=== PATIENT | male | born 1970 | race Caucasian/White ===

== ENCOUNTER 2021-09-16 14:23 | Emergency (ER) | payer OTHER, SELFPAY ==
--- NOTE | ~2021-09-16 | XR_ITS ---
EXAMINATION: XR ELBOW, LEFT CLINICAL INFORMATION: Pain COMPARISON: None TECHNIQUE: AP, lateral, and oblique views of the left elbow. FINDINGS: There is no fracture, dislocation, or elbow capsular effusion. The articular surfaces appear intact. No joint narrowing or erosive change. There is a tiny spur from the radial head and fine mineralization at the distal triceps just proximal to the olecranon with mild overlying soft tissue swelling. XR/XR elbow LT 2V IMPRESSION: 1. Mild soft tissue swelling overlying olecranon. Fine mineralization distal triceps consistent with calcific tendinosis. 2. No fracture, dislocation, or elbow capsular effusion.
--- NOTE | ~2021-09-16 | CT_ITS ---
EXAMINATION: CT HEAD WITHOUT CONTRAST CT CERVICAL SPINE WITHOUT CONTRAST CLINICAL INFORMATION: Status post fall. Currently intoxicated. COMPARISON: CT cervical spine dated from 05/18/2017. TECHNIQUE: Contiguous axial imaging was performed from the skull base to vertex without intravenous administration of contrast. Contiguous axial imaging was performed from the upper chest through the skull base without intravenous administration of contrast. Coronal and sagittal reformats were obtained at the acquisition workstation. This CT examination was performed using dose optimization techniques as appropriate, variously including the following: *Automated exposure control *Adjustment of mA and/or kV according to patient size (this includes techniques or standardized protocols for targeted exams where dose is matched to indication/reason for exam; i.e. extremities or head) *Use of iterative reconstruction technique DLP: 312 mGy-cm FINDINGS: Head: There is no evidence of acute intracranial hemorrhage or edematous territorial infarction. There is no abnormal attenuation within the brain parenchyma. Weaver-white matter differentiation is preserved. The ventricles are normal in size and configuration. No evidence for obstructive hydrocephalus. No abnormal mass effect or midline shift. No extra-axial fluid collections. Very mild soft tissue thickening in the left frontal scalp, likely the site of injury. No acute osseous abnormalities. The mastoid air cells and paranasal sinuses are clear. Cervical Spine: The atlantooccipital and atlantoaxial articulations remain well aligned. Straightening of the normal cervical lordosis. Otherwise, there is anatomic alignment of the vertebral bodies and posterior elements. No evidence of acute fracture or subluxation. Mild multilevel cervical spondylosis, more prominent in the mid thoracic spine. There is no prevertebral soft tissue swelling. The thyroid gland and remaining cervical soft tissues are normal in appearance. The lung apices demonstrate no abnormalities. There are a few periapical lucencies. Consider dental consultation. CT/CT cervical spine wo con IMPRESSION: No acute intracranial pathology. No acute cervical abnormalities.
[2021-09-16 14:40] VITALS: BP 142/92; PULSE 100; RESP 18; TEMP 36.7; O2SAT 98; BMI 17.7
[2021-09-16] MEDS: Lidocaine HCl 1 % MPF 5 ML VIAL SUBCUT (15:25)
[2021-09-16] MEDS: Diphth,Pertus(ACell),Tet Adult 0.5 ML SYRINGE IM (15:26)
[2021-09-16 16:10] LABS: MANUAL DIFF FLAG NO
--- NOTE | 2021-09-16 16:17 | ED_ITS ---
HPI - Fall General Chief Complaint: Fall <MADISON Hillman - Last Filed: 09/16/21 17:23> Stated Complaint: ETOH W/FALL, NO COMPLAINTS FROM PT PER EMS <MADISON Hillman - Last Filed: 09/16/21 17:23> Time Seen by Provider: 09/16/21 14:54 <MADISON Hillman - Last Filed: 09/16/21 17:23> Source: patient and EMS <MADISON Hillman Last Filed: 09/16/21 17:23> Mode of arrival: EMS <MADISON Hillman Last Filed: 09/16/21 17:23> Limitations: other (Poor historian and intoxicated) <MADISON Hillman Last Filed: 09/16/21 17:23> History of Present Illness HPI Narrative: 51-year-old male with a past medical history of alcohol abuse who reports he drinks approximately four 25 oz of beer daily presenting to the ED via EMS with complaints of a fall and left elbow pain. Patient is a very poor historian is intoxicated he reports that he is unsure when he fell and how he fell although he knows that his left elbow hurts. He denies any head injury or loss of consciousness that he is aware of. He denies being on any blood thinners. He denies any dizziness, headache, change in vision, ear pain, nasal discharge, sore throat, trouble swallowing or breathing, cough, chest pain, shortness of breath, dyspnea exertion, orthopnea, palpitations, nausea/vomiting/diarrhea, a bdominal pain, back pain, any other extremity pain or injuries, recent travel or any other symptoms complaints or concerns at this time. He reports he is currently homeless. He reports that he is not interested in detox. He denies any SI/HI/auditory or visual hallucinations or thoughts of self-injury. <MADISON Hillman Last Filed: 09/16/21 17:23> MD complaint: fall <MADISON Hillman Last Filed: 09/16/21 17:23> Onset (ago): unknown <MADISON Hillman Last Filed: 09/16/21 17:23> Place fall occurred: street <MADISON Hillman Last Filed: 09/16/21 17:23> Loss of consciousness: none <MADISON Hillman - Last Filed: 09/16/21 17:23> Prolonged down time: unclear <MADISON Hillman - Last Filed: 09/16/21 17:23> Symptoms prior to fall: none <MADISON Hillman - Last Filed: 09/16/21 17:23> Context: alcohol use <MADISON Hillman - Last Filed: 09/16/21 17:23> Location of injury - extremities: left: elbow <MADISON Hillman - Last Filed: 09/16/21 17:23> Severity: mild <MADISON Hillman - Last Filed: 09/16/21 17:23> Quality: aching <MADISON Hillman - Last Filed: 09/16/21 17:23> Associated symptoms (after fall): denies <MADISON Hillman - Last Filed: 09/16/21 17:23> Related Data Allergies/Adverse Reactions: Allergies Allergy/AdvReac Type Severity Reaction Status Date / Time No Known Allergies Allergy Unverified 07/30/20 15:15 [No Known Allergies*] <MADISON Hillman - Last Filed: 09/16/21 17:23> Review of Systems Review of Systems: Constitutional : No Fever, No Chills ENT/Mouth : No Ear Pain, No Hoarseness, No sore throat Eyes: No Eye Pain, No Swelling, No Redness, No Foreign Body Cardiovascular : No Chest Pain, No SOB Respiratory : No Cough, No Dyspnea Gastrointestinal : No Nausea, No Vomiting, No Diarrhea, No abdominal Pain Genitourinary : No Dysuria, No Hematuria Musculoskeletal : + joint pain, No Myalgias, No Joint Swelling Skin : + left elbow Skin laceration, No rash Neuro : No Weakness, No Numbness, No Paresthesias, No Loss of Consciousness, No Dizziness, No Headache Psych : No Anxiety/Panic, No Depression Heme/Lymph: no easy bruising, no Lymphadenopathy Endocrine : No Polyuria, No Polydipsia <MADISON Hillman Last Filed: 09/16/21 17:23> Yes all other systems are reviewed and are negative <MADISON Hillman Last Filed: 09/16/21 17:23> [facility] Past Medical History Attestation statement: The following information was validated with the patient. <MADISON Hillman - Last Filed: 09/16/21 17:23> Social History Social History: Social History Alcohol intake: never Smoked in Last 30 Days: No Use of substances other than those prescribed or required for medical reasons: No Advance Directives: No Advance Directives Information Provided: No <MADISON Hillman - Last Filed: 09/16/21 17:23> Physical Exam Vital Signs: Vital Signs: Last Vital Signs Temp 98.0 F 09/16/21 14:40 Pulse 100 09/16/21 14:40 Resp 18 09/16/21 14:40 BP 142/92 H 09/16/21 14:40 Pulse Ox 98 09/16/21 14:40 Body Mass Index 17.7 vital signs have been reviewed as normal and appeared to be correct. Blood pressure normal. Heart rate normal. Respiration rate normal. Temperature normal. Oxygen saturation normal. <MADISON Hillman - Last Filed: 09/16/21 17:23> Vital Signs: Last Vital Signs Temp 98.0 F 09/16/21 14:40 Pulse 100 09/16/21 14:40 Resp 18 09/16/21 14:40 BP 142/92 H 09/16/21 14:40 Pulse Ox 98 09/16/21 14:40 Body Mass Index 17.7 <MADISON Harrell - Last Filed: 09/16/21 21:13> Appearance: Alert although intoxicated with EtOH on breath. Oriented X3. No acute distress. Head: Normal external exam. Normocephalic. Atraumatic. No [place] signs noted. No raccoon eyes noted Eyes: PERRLA. EOMI. Conjunctiva and sclera normal. Eyelids normal. ENT: EAC normal. TM's Normal. Pharynx normal. Uvula midline. Moist mucous membranes. No trismus noted. No drooling noted. No muffled voice noted. Neck: Normal inspection. Neck supple. FROM. No adenopathy. Thyroid Normal. No meningeal signs. No neck mass noted. Nontender. No signs of trauma. CVS: Normal heart rate and rhythm. Heart sound normal. No murmurs noted. Pulses normal throughout. Respiratory: No respiratory distress. Painless inspiration. Breath sounds normal. No wheezes/rales/rhonchi noted. Chest nontender. No accessory muscle usage noted or decreased air movement noted. Abdomen: Soft and nontender. Bowel sounds normal in all 4 quadrants. No distention noted. No organomegaly noted. No visible injury noted. Back: No CVA tenderness. Full range of motion noted. Skin: Skin warm and dry. Normal skin color. Normal skin turgor. No rashes/lesions/lacerations noted. Extremities: Patient with flap 1 cm laceration to left elbow no active bleeding is noted. No foreign bodies are noted. No signs of infection noted. Otherwise all other Extremities exhibit normal range of motion and nontender. No lower extremity edema or calf tenderness is noted. No signs of trauma to other extremities. Patient has full range of motion of lower extremities and hips. No obvious tendon or ligament injury to any joints. Neuro: Oriented X 3. No motor deficit. No sensory deficit. Reflexes normal. Psych: Appearance grossly normal, dishelved, mental status normal, speech and movement normal, speech clear, normal affect. Is cooperative. <MADISON Hillman - Last Filed: 09/16/21 17:23> Course Course Course Narrative: 15pm - 51-year-old male with a past medical history of alcohol abuse who reports he drinks approximately four 25 oz of beer daily presenting to the ED via EMS with complaints of a fall and left elbow pain. Patient is a very poor historian is intoxicated he reports that he is unsure when he fell and how he fell although he knows that his left elbow hurts. He denies any head injury or loss of consciousness that he is aware of. He denies being on any blood thinners. He reports he is currently homeless. He reports that he is not interested in detox. He denies any SI/HI/auditory or visual hallucinations or thoughts of self-injury. Plan: Labs, CT scan of brain/cervical spine without contrast, left elbow x-ray. Update the patient's tetanus and suture the patient's left elbow then re- evaluate. <MADISON Hillman - Last Filed: 09/16/21 17:23> Reevaluation(s) Reevaluation #1: - labs reviewed patient with white blood cell count at 1999. Mild anemia with H&H of 13.9/41.9. Low platelet count of 65. BUN 6. AST/ALT 153/56. Total protein 8.3. Otherwise all other labs are within normal limits. - CT scan of brain/cervical spine within normal limits no acute processes are noted. - left elbow x-ray revealed soft tissue swelling over olecranon process and calcified tendinitis otherwise no other acute processes are noted. - patient now status post laceration repair with [address] Patient tolerated procedure well. No complications. Tetanus was updated at this time. - therefore at this time will obtain blood cultures and lactic acid along with at hepatitis panel such as a/B/C. Patient denies history of HIV. He denies history of IV drug use. - will also give a L of IV fluids and Sign out to VIVI[facility] Hawthorne pending lactic acid and for the patient to be clinically sober. <MADISON Hillman Last Filed: 09/16/21 17:23> Time: 17:19 <MADISON Hillman Last Filed: 09/16/21 17:23> Reevaluation #2: 1900--pancytopenia likely caused from chronic ETOH abuse. Lactic acidosis of 2.4 likely from dehydration/ketoacidosis > will give total of 2L of IVF and repeat. Low concern for severe sepsis -2109--repeat lactic 2.6, still low concern for sepsis, patient is clinically sober at this time requesting to be discharged, ambulating with steady gait, safe for discharge at this time <MADISON Harrell Last Filed: 09/16/21 21:13> Procedures Laceration Laceration 1: Site: upper extremity (Elbow) <MADISON Hillman Last Filed: 09/16/21 17:23> Side (If applicable): left <MADISON Hillman Last Filed: 09/16/21 17:23> Size (cm): 1 <MADISON Hillman Last Filed: 09/16/21 17:23> Description: flap <MADISON Hillman Last Filed: 09/16/21 17:23> Depth: simple, single layer <MADISON Hillman Last Filed: 09/16/21 17:23> Local Anesthetic: lidocaine 1% <MADISON Hillman - Last Filed: 09/16/21 17:23> Amount of anesthesia used (mL): 3 <MADISON Hillman - Last Filed: 09/16/21 17:23> Pre-repair: wound explored, irrigated extensively and deep structures intact <MADISON Hillman - Last Filed: 09/16/21 17:23> Skin layer closed with: nylon <MADISON Hillman - Last Filed: 09/16/21 17:23> Size (cm): 5-0 <MADISON Hillman - Last Filed: 09/16/21 17:23> Number of sutures: 2 <MADISON Hillman - Last Filed: 09/16/21 17:23> Technique: simple, interrupted <MADISON Hillman - Last Filed: 09/16/21 17:23> MDM - Fall Medical Records Attestation: I reviewed the patient's medical records. <MADISON Hillman - Last Filed: 09/16/21 17:23> Lab Data Attestation: I reviewed the patient's lab results. <MADISON Hillman - Last Filed: 09/16/21 17:23> Result diagrams: : 09/16/21 16:07 09/16/21 16:07 <MADISON Hillman - Last Filed: 09/16/21 17:23> Labs: Lab Results 09/16/21 09/16/21 09/16/21 Range/Units 16:07 16:07 18:00 WBC 2.9 L (4.8-10.8) X10*3/uL RBC 4.26 L (4.60-5.80) X10*6/uL Hgb 13.9 L (14.0-18.0) g/dl Hct 41.2 L (42.0-52.0) % MCV 96.7 (80.0-98.0) fL MCH 32.6 (27.0-33.0) pg MCHC 33.7 (31.0-36.0) g/dl RDW 14.6 (11.0-16.0) % Plt Count 65 L (160-400) X10*3/uL MPV 10.7 (9.4-12.4) fL Immature Gran % (Auto) 0.3 (0.0-0.4) % Neut % (Auto) 60.9 (45-73) % Lymph % (Auto) 19.2 L (20-40) % [place] % (Auto) 17.5 H (2-11) % Eos % (Auto) 0.7 (0-4) % Baso % (Auto) 1.4 (0-2) % Lymph # (Auto) 0.6 L (1.2-4.9) X10*3/uL [place] # (Auto) 0.5 (0.1-1.2) X10*3/uL Eos # (Auto) 0.0 (0.0-0.4) X10*3/uL Baso # (Auto) 0.0 (0.0-0.2) X10*3/uL Abs Immat Gran (auto) 0.01 (0.00-0.03) X10*3/uL Absolute Neuts (auto) 1.8 L (2.0-8.3) x10*3/uL Absolute Nucleated RBC 0.000 (0.0-0.012) X10*3/uL Nucleated RBC % (auto) 0.0 (0.0-0.2) /100WBC Sodium 141 (135-145) mmol/L Potassium 4.1 (3.3-5.1) mmol/L Chloride 101 (96-108) mmol/L Carbon Dioxide 28 (22-29) mmol/L Anion Gap 16 (12-20) BUN 6 L (9-16) mg/dL Creatinine 0.76 (0.5-1.4) mg/dL Estim Creat Clear Calc 80.2 Estimated GFR > 60 Random Glucose 88 (60-115) mg/dL Lactic Acid (0.5-2.0) mmol/L Calcium 9.0 (8.4-10.2) mg/dL Magnesium 1.9 (1.6-2.6) mg/dL Total Bilirubin 0.4 (0.0-1.0) mg/dL AST 153 H (5-37) U/L ALT 56 H (0-40) U/L Alkaline Phosphatase 99 (39-117) U/L Total Creatine Kinase 145 (38-174) U/L Total Protein 8.3 H (6.5-8.0) g/dL Albumin 4.5 (3.5-5.0) g/dL Lipase 55 (8-78) U/L COVID-19 (TAI) Negative (Negative) COVID-19 Clin Com See Note 09/16/21 09/16/21 Range/Units 18:27 20:32 WBC (4.8-10.8) X10*3/uL RBC (4.60-5.80) X10*6/uL Hgb (14.0-18.0) g/dl Hct (42.0-52.0) % MCV (80.0-98.0) fL MCH (27.0-33.0) pg MCHC (31.0-36.0) g/dl RDW (11.0-16.0) % Plt Count (160-400) X10*3/uL MPV (9.4-12.4) fL Immature Gran % (Auto) (0.0-0.4) % Neut % (Auto) (45-73) % Lymph % (Auto) (20-40) % [place] % (Auto) (2-11) % Eos % (Auto) (0-4) % Baso % (Auto) (0-2) % Lymph # (Auto) (1.2-4.9) X10*3/uL [place] # (Auto) (0.1-1.2) X10*3/uL Eos # (Auto) (0.0-0.4) X10*3/uL Baso # (Auto) (0.0-0.2) X10*3/uL Abs Immat Gran (auto) (0.00-0.03) X10*3/uL Absolute Neuts (auto) (2.0-8.3) x10*3/uL Absolute Nucleated RBC (0.0-0.012) X10*3/uL Nucleated RBC % (auto) (0.0-0.2) /100WBC Sodium (135-145) mmol/L Potassium (3.3-5.1) mmol/L Chloride (96-108) mmol/L Carbon Dioxide (22-29) mmol/L Anion Gap (12-20) BUN (9-16) mg/dL Creatinine (0.5-1.4) mg/dL Estim Creat Clear Calc Estimated GFR Random Glucose (60-115) mg/dL Lactic Acid 2.4 H* 2.6 H* (0.5-2.0) mmol/L Calcium (8.4-10.2) mg/dL Magnesium (1.6-2.6) mg/dL Total Bilirubin (0.0-1.0) mg/dL AST (5-37) U/L ALT (0-40) U/L Alkaline Phosphatase (39-117) U/L Total Creatine Kinase (38-174) U/L Total Protein (6.5-8.0) g/dL Albumin (3.5-5.0) g/dL Lipase (8-78) U/L COVID-19 (TAI) (Negative) COVID-19 Clin Com <MADISON Hillman - Last Filed: 09/16/21 17:23> Lab Results 09/16/21 09/16/21 09/16/21 Range/Units 16:07 16:07 18:00 WBC 2.9 L (4.8-10.8) X10*3/uL RBC 4.26 L (4.60-5.80) X10*6/uL Hgb 13.9 L (14.0-18.0) g/dl Hct 41.2 L (42.0-52.0) % MCV 96.7 (80.0-98.0) fL MCH 32.6 (27.0-33.0) pg MCHC 33.7 (31.0-36.0) g/dl RDW 14.6 (11.0-16.0) % Plt Count 65 L (160-400) X10*3/uL MPV 10.7 (9.4-12.4) fL Immature Gran % (Auto) 0.3 (0.0-0.4) % Neut % (Auto) 60.9 (45-73) % Lymph % (Auto) 19.2 L (20-40) % [place] % (Auto) 17.5 H (2-11) % Eos % (Auto) 0.7 (0-4) % Baso % (Auto) 1.4 (0-2) % Lymph # (Auto) 0.6 L (1.2-4.9) X10*3/uL [place] # (Auto) 0.5 (0.1-1.2) X10*3/uL Eos # (Auto) 0.0 (0.0-0.4) X10*3/uL Baso # (Auto) 0.0 (0.0-0.2) X10*3/uL Abs Immat Gran (auto) 0.01 (0.00-0.03) X10*3/uL Absolute Neuts (auto) 1.8 L (2.0-8.3) x10*3/uL Absolute Nucleated RBC 0.000 (0.0-0.012) X10*3/uL Nucleated RBC % (auto) 0.0 (0.0-0.2) /100WBC Sodium 141 (135-145) mmol/L Potassium 4.1 (3.3-5.1) mmol/L Chloride 101 (96-108) mmol/L Carbon Dioxide 28 (22-29) mmol/L Anion Gap 16 (12-20) BUN 6 L (9-16) mg/dL Creatinine 0.76 (0.5-1.4) mg/dL Estim Creat Clear Calc 80.2 Estimated GFR > 60 Random Glucose 88 (60-115) mg/dL Lactic Acid (0.5-2.0) mmol/L Calcium 9.0 (8.4-10.2) mg/dL Magnesium 1.9 (1.6-2.6) mg/dL Total Bilirubin 0.4 (0.0-1.0) mg/dL AST 153 H (5-37) U/L ALT 56 H (0-40) U/L Alkaline Phosphatase 99 (39-117) U/L Total Creatine Kinase 145 (38-174) U/L Total Protein 8.3 H (6.5-8.0) g/dL Albumin 4.5 (3.5-5.0) g/dL Lipase 55 (8-78) U/L COVID-19 (TAI) Negative (Negative) COVID-19 Clin Com See Note 09/16/21 09/16/21 Range/Units 18:27 20:32 WBC (4.8-10.8) X10*3/uL RBC (4.60-5.80) X10*6/uL Hgb (14.0-18.0) g/dl Hct (42.0-52.0) % MCV (80.0-98.0) fL MCH (27.0-33.0) pg MCHC (31.0-36.0) g/dl RDW (11.0-16.0) % Plt Count (160-400) X10*3/uL MPV (9.4-12.4) fL Immature Gran % (Auto) (0.0-0.4) % Neut % (Auto) (45-73) % Lymph % (Auto) (20-40) % [place] % (Auto) (2-11) % Eos % (Auto) (0-4) % Baso % (Auto) (0-2) % Lymph # (Auto) (1.2-4.9) X10*3/uL [place] # (Auto) (0.1-1.2) X10*3/uL Eos # (Auto) (0.0-0.4) X10*3/uL Baso # (Auto) (0.0-0.2) X10*3/uL Abs Immat Gran (auto) (0.00-0.03) X10*3/uL Absolute Neuts (auto) (2.0-8.3) x10*3/uL Absolute Nucleated RBC (0.0-0.012) X10*3/uL Nucleated RBC % (auto) (0.0-0.2) /100WBC Sodium (135-145) mmol/L Potassium (3.3-5.1) mmol/L Chloride (96-108) mmol/L Carbon Dioxide (22-29) mmol/L Anion Gap (12-20) BUN (9-16) mg/dL Creatinine (0.5-1.4) mg/dL Estim Creat Clear Calc Estimated GFR Random Glucose (60-115) mg/dL Lactic Acid 2.4 H* 2.6 H* (0.5-2.0) mmol/L Calcium (8.4-10.2) mg/dL Magnesium (1.6-2.6) mg/dL Total Bilirubin (0.0-1.0) mg/dL AST (5-37) U/L ALT (0-40) U/L Alkaline Phosphatase (39-117) U/L Total Creatine Kinase (38-174) U/L Total Protein (6.5-8.0) g/dL Albumin (3.5-5.0) g/dL Lipase (8-78) U/L COVID-19 (TAI) (Negative) COVID-19 Clin Com <MADISON Harrell - Last Filed: 09/16/21 21:13> Imaging Data CT scan of brain/cervical spine without contrast: Attestation: I personally reviewed and interpreted this imaging study as follows: <MADISON Hillman - Last Filed: 09/16/21 17:23> Radiologist's impression: FINDINGS: Head: There is no evidence of acute intracranial hemorrhage or edematous territorial infarction. There is no abnormal attenuation within the brain parenchyma. Weaver-white matter differentiation is preserved. The ventricles are normal in size and configuration. No evidence for obstructive hydrocephalus. No abnormal mass effect or midline shift. No extra-axial fluid collections. Very mild soft tissue thickening in the left frontal scalp, likely the site of injury. No acute osseous abnormalities. The mastoid air cells and paranasal sinuses are clear. Cervical Spine: The atlantooccipital and atlantoaxial articulations remain well aligned. Straightening of the normal cervical lordosis. Otherwise, there is anatomic alignment of the vertebral bodies and posterior elements. No evidence of acute fracture or subluxation. Mild multilevel cervical spondylosis, more prominent in the mid thoracic spine. There is no prevertebral soft tissue swelling. The thyroid gland and remaining cervical soft tissues are normal in appearance. The lung apices demonstrate no abnormalities. There are a few periapical lucencies. Consider dental consultation. CT/CT head/brain wo con IMPRESSION: No acute intracranial pathology. ? No acute cervical abnormalities. <MADISON Hillman - Last Filed: 09/16/21 17:23> Left elbow x-ray: Attestation: I personally reviewed and interpreted this imaging study as follows: <MADISON Hillman - Last Filed: 09/16/21 17:23> Radiologist's impression: FINDINGS: There is no fracture, dislocation, or elbow capsular effusion. The articular surfaces appear intact. No joint narrowing or erosive change. There is a tiny spur from the radial head and fine mineralization at the distal triceps just proximal to the olecranon with mild overlying soft tissue swelling.? XR/XR elbow LT 2V IMPRESSION: ? 1. Mild soft tissue swelling overlying olecranon. Fine mineralization distal triceps consistent with calcific tendinosis. 2. No fracture, dislocation, or elbow capsular effusion. <MADISON Hillman - Last Filed: 09/16/21 17:23> Discharge Plan Discharge Clinical Impression: Sprain of elbow, left, Calcifying tendinitis, Fall, Alcohol intoxication, Laceration of elbow, left <MADISON Hillman - Last Filed: 09/16/21 17:23> Patient Disposition: Home, Self-Care <MADISON Hillman - Last Filed: 09/16/21 17:23> Instructions: Abuse of Alcohol (ED), Fall Prevention (ED) <MADISON Hillman - Last Filed: 09/16/21 17:23> Additional Instructions: Do not drink alcohol or take drugs it can kill you Please follow-up with . Please stay hydrated at home If your symptoms persist or worsen please return to the ED Please return to the ED in 7-10 days to have her stitches taken out <MADISON Hillman - Last Filed: 09/16/21 17:23> Referrals: Alisa Davenport PA [Physician Real Estate Specialist] - 10 days (For suture removal) <MADISON Hillman - Last Filed: 09/16/21 17:23>
[2021-09-16 16:27] LABS: Basophils Percent Auto 1.4 % (0-2); Eosinophils Percent Auto 0.7 % (0-4); Hematocrit 41.2 % (42.0-52.0); Hemoglobin 13.9 g/dl (14.0-18.0); Imm Gran Abs Auto 0.01 X10*3/uL (0.00-0.03); Imm Gran Pct Auto 0.3 % (0.0-0.4); Lymphocytes Absolute Auto 0.6 X10*3/uL (1.2-4.9); Lymphocytes Percent Auto 19.2 % (20-40); Mean Corpuscular HGB Conc 33.7 g/dl (31.0-36.0); Mean Corpuscular Hemoglobin 32.6 pg (27.0-33.0); Mean Corpuscular Volume 96.7 fL (80.0-98.0); Mean Platelet Volume 10.7 fL (9.4-12.4); Monocytes Absolute Auto 0.5 X10*3/uL (0.1-1.2); Monocytes Percent Auto 17.5 % (2-11); Neutrophils Absolute Auto 1.8 x10*3/uL (2.0-8.3); Neutrophils Percent Auto 60.9 % (45-73); Red Blood Count 4.26 X10*6/uL (4.60-5.80); Red Cell Distribution Width 14.6 % (11.0-16.0); White Blood Count 2.9 X10*3/uL (4.8-10.8)
[2021-09-16 16:28] LABS: Platelet Count 65 X10*3/uL (160-400)
[2021-09-16 16:32] LABS: Alanine Aminotransferase 56 U/L (0-40); Albumin Level 4.5 g/dL (3.5-5.0); Alkaline Phosphatase 99 U/L (39-117); Anion Gap 16 (12-20); Aspartate Amino Transferase 153 U/L (5-37); Bilirubin Total 0.4 mg/dL (0.0-1.0); Blood Urea Nitrogen 6 mg/dL (9-16); Carbon Dioxide 28 mmol/L (22-29); Chloride 101 mmol/L (96-108); Creatinine Clr Calc Pharmacy 80.2; Estimated Glomerular Filt Rate > 60; Glucose Random 88 mg/dL (60-115); Lipase 55 U/L (8-78); Magnesium 1.9 mg/dL (1.6-2.6); Potassium 4.1 mmol/L (3.3-5.1); Sodium 141 mmol/L (135-145); Total Protein 8.3 g/dL (6.5-8.0)
[2021-09-16] MEDS: 0.9 % Sodium Chloride 1,000 ML 999 ML IVCONT ×2 (17:32→18:59)
--- NOTE | 2021-09-16 17:45 | MHC.RECOVSUP ---
? Reason for consult Recovery Support o Current location: [facility] o Identified substance use concern: Alcohol - Support ? Intervention: o Community resources provided o Harm reduction discussion ? Plan: o Patient to follow up with H after discharge ? Additional information: Met with patient and we talk about recovery.. Patient did not want any services but did take the resources.
[2021-09-16 18:19] LABS: COVID-19 Test Negative (Negative); IDNOW Serial# 08D9AD1C
[2021-09-16 18:48] LABS: Lactic Acid 2.4 mmol/L (0.5-2.0)
[2021-09-16 20:31] LABS: Reflex Lactate? Lactic Acid Added
[2021-09-16 21:01] LABS: Lactic Acid 2.6 mmol/L (0.5-2.0)
[2021-09-17 04:07] LABS: HBS Num1 0.15 mIU/mL (0-7.99); Hepatitis B Core Antibody Nonreactive (Nonreactive); ~HepC Num1 0.12 S/CO (0.00-0.79); ~Hepatitis B Surface Antibody NONREACTIVE (Nonreactive); ~Hepatitis C Antibody Nonreactive (Nonreactive)
[2021-09-17 04:08] LABS: Hepatitis A Antibody IgM 0.12 Index (0-0.79); Hepatitis B Surface Antigen Negative (Negative); ~Hepatitis A Antibody IgM Nonreactive (Nonreactive)
== END 2021-09-16 21:37 | disposition home or self-care (01) ==
PROVIDERS: Physician Assistant; Physician Assistant Medical; Emergency Provider Emergency Medicine
DX: S53.402A Unspecified sprain of left elbow, initial encounter (principal); S51.012A Laceration without foreign body of left elbow, initial encounter; M65.222 Calcific tendinitis, left upper arm; F10.10 Alcohol abuse, uncomplicated; W19.XXXA Unspecified fall, initial encounter; Y93.9 Activity, unspecified; Y92.9 Unspecified place or not applicable; Y99.9 Unspecified external cause status; Z59.02 Unsheltered homelessness; Z20.822 Contact with and (suspected) exposure to COVID-19
CPT/HCPCS: 12001; 36415; 70450; 72125; 73070; 80053; 82550; 83605; 83690; 83735; 85025; 86704; 86706; 86709; 86803; 87040; 87340; 87635; 90471; 90715; 96360; 96361; 99284

== ENCOUNTER 2021-10-13 15:20 | Emergency (ER) | payer SELFPAY | END 2021-10-13 16:08 | disposition left against medical advice (07) | PROVIDERS: Emergency Provider Emergency Medicine | DX: Z48.02 Encounter for removal of sutures (principal) ==

== ENCOUNTER 2021-10-15 15:20 | Emergency (ER) | payer SELFPAY ==
[2021-10-15 15:27] VITALS: BP 159/87; PULSE 96; RESP 12; TEMP 36.8; O2SAT 92; BMI 17.6
--- NOTE | 2021-10-15 16:06 | ED.ALCOHOL ---
HPI - Alcohol General Chief Complaint: ETOH/Substance Use Stated Complaint: etoh Source: patient and EMS Mode of arrival: EMS Limitations: no limitations History of Present Illness HPI narrative: 51-year-old male presents via EMS for alcohol intoxication. MD complaint: alcohol intoxication Last drink: Just prior to admission Chronic alcohol use: Yes Previous visits for alcohol intoxication: Yes Recent trauma: No Associated symptoms: denies other symptoms Treatments prior to arrival: none Related Data Allergies Allergy/AdvReac Type Severity Reaction Status Date / Time No Known Allergies Allergy Unverified 07/30/20 15:15 [No Known Allergies*] Review of Systems Review of Systems: Constitutional: No Fever, No Chills ENT/Mouth: No sore throat, No Rhinorrhea Eyes: No Eye Pain, No Swelling, No Redness Cardiovascular: No Chest Pain, No SOB Respiratory: No Cough, No Sputum Gastrointestinal: No Nausea, No Vomiting, No Diarrhea, No abdominal Pain Genitourinary: No Dysuria, No Hematuria Musculoskeletal: No joint pain, No Myalgias, No Joint Swelling Skin: No Skin Lesions, No rash Neuro: No Weakness, No Numbness, No Loss of Consciousness, No Dizziness, No Headache Psych: Positive alcohol intoxication, No Anxiety, No Depression, No SI/HI/AH/VH Heme/Lymph: No Bruising, No Bleeding,No Lymphadenopathy Endocrine: No Polyuria, No Polydipsia Yes all other systems are reviewed and are negative [facility] Past Medical History Attestation statement: The following information was validated with the patient. Source: old records reviewed Social History Social History Alcohol intake: current Patient Tobacco Use Status: Tobacco use Unknown Use of substances other than those prescribed or required for medical reasons: Unknown Advance Directives: No Advance Directives Information Provided: Yes Physical Exam Vital Signs: Vital Signs: Last Vital Signs Temp 98.2 F 10/15/21 15:27 Pulse 96 10/15/21 15:27 Resp 12 10/15/21 15:27 BP 159/87 H 10/15/21 15:27 Pulse Ox 92 10/15/21 15:27 BMI result Body Mass Index 17.6 Appearance: Alert. Oriented X3. No acute distress. Eyes: Pupils equal, round and reactive to light. ENT: Pharynx normal. Neck: Normal inspection. Neck supple. CVS: Normal heart rate and rhythm. Pulses normal. Respiratory: No respiratory distress. Breath sounds normal. Abdomen: Soft and nontender. Skin: Skin warm and dry. Normal skin color. Normal skin turgor. Extremities: No lower extremity edema. Moves all extremities against resistance. Neuro: No motor deficit. No sensory deficit. Cranial nerves 2-12 intact. Course Course Course Narrative: 51-year-old male presents with acute alcohol intoxication. Has presented to this facility for ETOH intoxication on a regular basis. Denies suicidal and homicidal ideation. Cranial nerves 2-12 intact. Will discharge home once clinically sober. Patient respectfully declines detox at this time. Patient verbalized understanding of and agrees plan of care discharge home. MDM - Alcohol Differential Diagnosis Differential diagnosis: Likely alcohol dependence and alcohol intoxication Medical Records Attestation: I reviewed the patient's medical records. Lab Data Attestation: I reviewed the patient's lab results. Labs: Lab Results 10/15/21 Range/Units 16:23 COVID-19 (TAI) Negative (Negative) COVID-19 Clin Com See Note Discharge Plan Discharge Clinical Impression: Alcoholic intoxication Patient Disposition: Home, Self-Care Instructions: Alcohol Intoxication (ED), Abuse of Alcohol (ED) Additional Instructions: Please consider detox. Thank you for choosing this emergency department for evaluation. Please follow-up with primary care physician as needed. Return to the emergency department for any new, concerning, or worsening symptoms.
[2021-10-15 17:10] LABS: COVID-19 Test Negative (Negative)
== END 2021-10-15 19:27 | disposition home or self-care (01) ==
PROVIDERS: Nurse Practitioner Family; Emergency Provider Internal Medicine
DX: F10.129 Alcohol abuse with intoxication, unspecified (principal); Y90.9 Presence of alcohol in blood, level not specified; Z20.822 Contact with and (suspected) exposure to COVID-19
CPT/HCPCS: 36415; 87635; 99283; 99284

== ENCOUNTER 2022-02-15 14:33 | Emergency (ER) | payer SELFPAY ==
--- NOTE | ~2022-02-15 | CT_ITS ---
EXAMINATION: CT HEAD WITHOUT CONTRAST CLINICAL INFORMATION: Following the ground. Unsteady gait COMPARISON: None TECHNIQUE: Contiguous axial imaging was performed from the skull base to vertex without intravenous administration of contrast. This CT examination was performed using dose optimization techniques as appropriate, variously including the following: *Automated exposure control *Adjustment of mA and/or kV according to patient size (this includes techniques or standardized protocols for targeted exams where dose is matched to indication/reason for exam; i.e. extremities or head) *Use of iterative reconstruction technique DLP: 708 mGy-cm FINDINGS: There is no evidence of acute intracranial hemorrhage or territorial infarction. No abnormal mass effect or midline shift is seen. Weaver to white matter differentiation is well preserved. No extra-axial fluid collections are identified. The ventricles are normal in size. There is no abnormal attenuation within the brain parenchyma. The osseous structures and soft tissues are normal. The mastoid air cells and visualized portions of the paranasal sinuses are well aerated. CT/CT head/brain wo con IMPRESSION: No acute intracranial process seen.
[2022-02-15 14:42] VITALS: BP 115/89; PULSE 96; RESP 18; TEMP 36.8; O2SAT 92; BMI 22.6
--- NOTE | 2022-02-15 15:11 | ED.GENADULT ---
HPI - General Adult General Chief complaint: General Medical Stated complaint: etoh Time Seen by Provider: 02/15/22 15:11 Source: patient Mode of arrival: EMS Limitations: altered mental status History of Present Illness HPI narrative: 52 y/o male with history longstanding history of alcohol abuse, several ER visits for ETOH intoxication who presents to the ER via EMS after he was found sleeping on ground in front of the firestation. He had an unsteady gait and smelled of alcohol. He was brought to the ER for evaluation. Patient reports drinking at least 6 vodka drinks today. He is unsure how he got to the fire station and unsure why he was sleeping on the floor. He states he has a home and is not homeless. He denies any falls or trauma but is unsure how we got to the ground. He denies any pain or injury. MD complaint: Alcohol intoxication Onset (ago): unknown Relieving factors: none Exacerbating factors: none Associated symptoms: confusion Treatments prior to arrival: none Related Data Allergies Allergy/AdvReac Type Severity Reaction Status Date / Time No Known Allergies Allergy Unverified 07/30/20 15:15 [No Known Allergies*] Review of Systems Review of Systems: Constitutional: No Fever, No Chills ENT/Mouth: No sore throat, No Rhinorrhea, No Swallowing Difficulty Eyes: No Eye Pain, No Swelling, No Redness Cardiovascular: No Chest Pain, No SOB, No Orthopnea, No Edema Respiratory: No Cough, No Sputum, No Wheezing, No dyspnea Gastrointestinal: No Nausea, No Vomiting, No Diarrhea, No abdominal Pain, No Hematochezia, No Melena Genitourinary: No Dysuria, No Urinary Frequency, No Hematuria Musculoskeletal: No joint pain, No Myalgias Skin: No Skin Lesions, No rash Neuro: No Weakness, No Numbness, No Dizziness, No Headache Psych: No Anxiety/Panic, No Depression Heme/Lymph: No Bruising, No Lymphadenopathy Endocrine: No Polyuria, No Polydipsia PMFSH Social History Social History Alcohol intake: current Patient Tobacco Use Status: Tobacco use Unknown Advance Directives: No Advance Directives Information Provided: Yes Physical Exam ED Vital Signs: Vital Signs - 24 hr 02/15/22 14:42 Temperature 98.3 F Pulse Rate 96 Respiratory Rate 18 Blood Pressure 115/89 Pulse Oximetry 92 BMI result Body Mass Index 22.6 Appearance: Alert male sitting in the stretcher, appears intoxicated. Oriented X2. smells of alcohol Head: atraumatic normocephalic. Eyes: Pupils equal, round and reactive to light. ENT: Pharynx normal. Neck: Normal inspection. Neck supple. CVS: Normal heart rate and rhythm. Pulses normal. Respiratory: No respiratory distress. Breath sounds normal. Abdomen: Soft and nontender. +BS x4 Skin: Skin warm and dry. Normal skin color. Normal skin turgor. No rashes. Extremities: Normal inpsection, normal ROM x4. No lower extremity edema. No track stroud. Neuro: Oriented X 2, confused, follows simple commands and answers simple questions, moves all extremities. nonfocal Course Course Course Narrative: 52-year-old male presents to the ER with alcohol intoxication, found on the ground sleeping to the fire station. He appears clinically intoxicated. Been on the ground, no signs of trauma, unclear if he fell or not. Denies any pain. Will get metabolic workup including ETOh level, CT head and monitor closely. Reevaluation(s) Reevaluation #1: ETOH 479. CBC with his baseline pancytopenia. CT head normal. CPK 297, given food and water. Will place in physician observation at this time. Physician observation started at 4:51pm. Patient placed in physician observation because patient is intoxicated and is not safe for discharge unless he has a sober ride.. At the time observation was started patient's vital signs were stable. Patient is alert and orientedx2. Neuro exam is non-focal. CV: RRR and lungs are clear. Will continue to monitor. Medical Decision Making Lab Data Result diagrams: 02/15/22 15:53 02/15/22 15:53 Labs: Lab Results 02/15/22 02/15/22 02/15/22 Range/Units 15:53 15:53 15:53 WBC 3.2 L (4.8-10.8) X10*3/uL RBC 4.35 L (4.60-5.80) X10*6/uL Hgb 13.6 L (14.0-18.0) g/dl Hct 41.1 L (42.0-52.0) % MCV 94.5 (80.0-98.0) fL MCH 31.3 (27.0-33.0) pg MCHC 33.1 (31.0-36.0) g/dl RDW 13.2 (11.0-16.0) % Plt Count 81 L (160-400) X10*3/uL MPV 11.1 (9.4-12.4) fL Immature Gran % (Auto) 0.3 (0.0-0.4) % Neut % (Auto) 50.0 (45-73) % Lymph % (Auto) 32.1 (20-40) % Gallia % (Auto) 14.8 H (2-11) % Eos % (Auto) 0.6 (0-4) % Baso % (Auto) 2.2 H (0-2) % Lymph # (Auto) 1.0 L (1.2-4.9) X10*3/uL Gallia # (Auto) 0.5 (0.1-1.2) X10*3/uL Eos # (Auto) 0.0 (0.0-0.4) X10*3/uL Baso # (Auto) 0.1 (0.0-0.2) X10*3/uL Abs Immat Gran (auto) 0.01 (0.00-0.03) X10*3/uL Absolute Neuts (auto) 1.6 L (2.0-8.3) x10*3/uL Absolute Nucleated RBC 0.000 (0.0-0.012) X10*3/uL Nucleated RBC % (auto) 0.0 (0.0-0.2) /100WBC Sodium 142 (135-145) mmol/L Potassium 4.0 (3.3-5.1) mmol/L Chloride 104 (96-108) mmol/L Carbon Dioxide 26 (22-29) mmol/L Anion Gap 16 (12-20) BUN 6 L (9-16) mg/dL Creatinine 0.75 (0.5-1.4) mg/dL Estim Creat Clear Calc 102.3 Estimated GFR > 60 Random Glucose 97 (60-115) mg/dL Calcium 9.2 (8.4-10.2) mg/dL Magnesium 1.6 (1.6-2.6) mg/dL Total Bilirubin 0.4 (0.0-1.0) mg/dL Direct Bilirubin 0.2 (0.0-0.5) mg/dL AST 110 H (5-37) U/L ALT 37 (0-40) U/L Alkaline Phosphatase 90 (39-117) U/L Total Creatine Kinase 297 H D (38-174) U/L Total Protein 8.5 H (6.5-8.0) g/dL Albumin 4.2 (3.5-5.0) g/dL Ethyl Alcohol mg/dL COVID-19 (TAI) Negative (Negative) COVID-19 Clin Com See Note 02/15/22 Range/Units 15:53 WBC (4.8-10.8) X10*3/uL RBC (4.60-5.80) X10*6/uL Hgb (14.0-18.0) g/dl Hct (42.0-52.0) % MCV (80.0-98.0) fL MCH (27.0-33.0) pg MCHC (31.0-36.0) g/dl RDW (11.0-16.0) % Plt Count (160-400) X10*3/uL MPV (9.4-12.4) fL Immature Gran % (Auto) (0.0-0.4) % Neut % (Auto) (45-73) % Lymph % (Auto) (20-40) % Gallia % (Auto) (2-11) % Eos % (Auto) (0-4) % Baso % (Auto) (0-2) % Lymph # (Auto) (1.2-4.9) X10*3/uL Gallia # (Auto) (0.1-1.2) X10*3/uL Eos # (Auto) (0.0-0.4) X10*3/uL Baso # (Auto) (0.0-0.2) X10*3/uL Abs Immat Gran (auto) (0.00-0.03) X10*3/uL Absolute Neuts (auto) (2.0-8.3) x10*3/uL Absolute Nucleated RBC (0.0-0.012) X10*3/uL Nucleated RBC % (auto) (0.0-0.2) /100WBC Sodium (135-145) mmol/L Potassium (3.3-5.1) mmol/L Chloride (96-108) mmol/L Carbon Dioxide (22-29) mmol/L Anion Gap (12-20) BUN (9-16) mg/dL Creatinine (0.5-1.4) mg/dL Estim Creat Clear Calc Estimated GFR Random Glucose (60-115) mg/dL Calcium (8.4-10.2) mg/dL Magnesium (1.6-2.6) mg/dL Total Bilirubin (0.0-1.0) mg/dL Direct Bilirubin (0.0-0.5) mg/dL AST (5-37) U/L ALT (0-40) U/L Alkaline Phosphatase (39-117) U/L Total Creatine Kinase (38-174) U/L Total Protein (6.5-8.0) g/dL Albumin (3.5-5.0) g/dL Ethyl Alcohol 479 H* mg/dL COVID-19 (TAI) (Negative) COVID-19 Clin Com Discharge Plan Discharge Clinical Impression: Alcoholic intoxication Patient Disposition: Still a Patient Additional Instructions: DO NOT DRINK ALCOHOL, recommend detox Follow up with your doctor If you develop new or worsening symptoms call 911 or come back to the ER for further evaluation.
[2022-02-15 16:02] LABS: MANUAL DIFF FLAG NO
[2022-02-15 16:03] LABS: Basophils Absolute Auto 0.1 X10*3/uL (0.0-0.2); Basophils Percent Auto 2.2 % (0-2); Eosinophils Percent Auto 0.6 % (0-4); Hematocrit 41.1 % (42.0-52.0); Hemoglobin 13.6 g/dl (14.0-18.0); Imm Gran Abs Auto 0.01 X10*3/uL (0.00-0.03); Imm Gran Pct Auto 0.3 % (0.0-0.4); Lymphocytes Percent Auto 32.1 % (20-40); Mean Corpuscular HGB Conc 33.1 g/dl (31.0-36.0); Mean Corpuscular Hemoglobin 31.3 pg (27.0-33.0); Mean Corpuscular Volume 94.5 fL (80.0-98.0); Mean Platelet Volume 11.1 fL (9.4-12.4); Monocytes Absolute Auto 0.5 X10*3/uL (0.1-1.2); Monocytes Percent Auto 14.8 % (2-11); Neutrophils Absolute Auto 1.6 x10*3/uL (2.0-8.3); Red Blood Count 4.35 X10*6/uL (4.60-5.80); Red Cell Distribution Width 13.2 % (11.0-16.0); White Blood Count 3.2 X10*3/uL (4.8-10.8)
[2022-02-15 16:09] LABS: Platelet Count 81 X10*3/uL (160-400)
[2022-02-15 16:16] LABS: Ethanol 479 mg/dL
[2022-02-15 16:20] LABS: Alanine Aminotransferase 37 U/L (0-40); Albumin Level 4.2 g/dL (3.5-5.0); Alkaline Phosphatase 90 U/L (39-117); Anion Gap 16 (12-20); Aspartate Amino Transferase 110 U/L (5-37); Bilirubin Direct 0.2 mg/dL (0.0-0.5); Bilirubin Total 0.4 mg/dL (0.0-1.0); Blood Urea Nitrogen 6 mg/dL (9-16); COVID-19 Test Negative (Negative); Calcium 9.2 mg/dL (8.4-10.2); Carbon Dioxide 26 mmol/L (22-29); Chloride 104 mmol/L (96-108); Creatinine Clr Calc Pharmacy 102.3; Estimated Glomerular Filt Rate > 60; Glucose Random 97 mg/dL (60-115); IDNOW Serial# 55D5AD1C; Magnesium 1.6 mg/dL (1.6-2.6); Sodium 142 mmol/L (135-145); Total Protein 8.5 g/dL (6.5-8.0)
[2022-02-15 17:53] VITALS: BP 115/68; PULSE 84; RESP 14; TEMP 36.4; O2SAT 95
[2022-02-15 22:10] VITALS: BP 117/83; PULSE 98; RESP 16; TEMP 36.8; O2SAT 92
== END 2022-02-16 00:34 | disposition home or self-care (01) ==
PROVIDERS: Physician Assistant; Emergency Provider Emergency Medicine
DX: F10.120 Alcohol abuse with intoxication, uncomplicated (principal); Y90.8 Blood alcohol level of 240 mg/100 ml or more; R41.0 Disorientation, unspecified; Z20.822 Contact with and (suspected) exposure to COVID-19
CPT/HCPCS: 36415; 70450; 80048; 80076; 82077; 82550; 83735; 85025; 87635; 99283; 99284

== ENCOUNTER 2022-09-01 21:26 | Emergency (ER) | payer SELFPAY ==
[2022-09-01 22:27] VITALS: BP 110/65; PULSE 85; RESP 16; TEMP 37; O2SAT 98; BMI 23.4
--- NOTE | 2022-09-02 01:02 | ED.ALCOHOL ---
HPI - Alcohol General Chief Complaint: ETOH/Substance Use Stated Complaint: etoh Time Seen by Provider: 09/02/22 01:01 Source: patient Mode of arrival: EMS Limitations: no limitations History of Present Illness HPI narrative: Patient had a beer was walking lost balance fell on his knees is no loss of consciousness follows witnessed by bystanders no acute complaints at this time Related Data Allergies Allergy/AdvReac Type Severity Reaction Status Date / Time No Known Allergies Allergy Unverified 07/30/20 15:15 [No Known Allergies*] Review of Systems Review of Systems: Yes all other systems are reviewed and are negative [facility] Social History Social History Alcohol intake: current Patient Tobacco Use Status: Tobacco use Unknown Advance Directives: No Advance Directives Information Provided: No Physical Exam ED Vital Signs: Vital Signs - 24 hr 09/01/22 22:27 Temperature 98.6 F Pulse Rate 85 Respiratory Rate 16 Blood Pressure 110/65 Pulse Oximetry 98 Oxygen Delivery Method Room Air BMI result Body Mass Index 23.4 Appearance: Alert. Oriented X3. No acute distress. etoh Eyes: PERRLA, No Nystagmus HEENT: Pharynx normal. Oral Mucosa moist a traumatic Neck: Normal inspection. Neck supple. CVS: Normal heart rate and rhythm. Pulses normal. Respiratory: No respiratory distress. Equal air entry bilateral, no wheezing/rales/rhonchi Abdomen: Soft and nontender. Bowel sounds are present, no mass palpable, no CVA tenderness Skin: Skin warm and dry. Normal skin color. Normal skin turgor. Extremities: No lower extremity edema. No calf tenderness Neuro: Oriented X 3. No motor deficit. No sensory deficit.No cerebellar signs , cranial nerves II-XII intact MDM - Alcohol MDM Narrative Medical decision making narrative: Patient intoxicated with mechanical fall wearing his pants very low likely the cause for the fall , no signs of injury patient ambulatory and steady gait to discharge patient home Discharge Plan Discharge Clinical Impression: Alcoholic intoxication, Fall Patient Disposition: Home, Self-Care Instructions: Alcohol Intoxication (ED), Fall Prevention (ED) Additional Instructions: Care and cautions as advised
--- NOTE | 2022-09-02 01:22 | PC.NURSE ---
pt ambulatory to and from bathroom with steady gait
== END 2022-09-02 01:22 | disposition home or self-care (01) ==
PROVIDERS: Emergency Provider Internal Medicine
DX: F10.220 Alcohol dependence with intoxication, uncomplicated (principal); Y90.9 Presence of alcohol in blood, level not specified; Z91.81 History of falling
CPT/HCPCS: 99282

== ENCOUNTER 2022-10-04 09:17 | Inpatient (IN) | payer MEDICAID, SELFPAY ==
[2022-10-04] VITALS (8 sets, daily range): BP systolic 104–151; BP diastolic 56–101; PULSE 78–109; RESP 16–18; TEMP 35.8–37.2; O2SAT 96–100; BMI 19.3
--- NOTE | ~2022-10-04 | CT_ITS ---
EXAMINATION: EXAMINATION: HEAD CT WITHOUT CONTRAST CERVICAL SPINE CT WITHOUT CONTRAST CLINICAL INFORMATION: Alcohol question fall COMPARISON: CT head 02/15/2022 TECHNIQUE: Contiguous axial imaging of the head was performed without the administration of IV contrast. Axial multidetector volumetric images were also performed through the cervical spine without contrast. Multiplanar reconstructed images in coronal and sagittal orientations were submitted. DOSE: 970 mGy-cm FINDINGS: HEAD: There is no evidence of acute intracranial hemorrhage or territorial infarction. No abnormal mass-effect or midline shift. No extra-axial fluid collections. Weaver to white matter differentiation is well preserved. Commensurate prominence of the ventricles and sulci is compatible with generalized parenchymal volume loss. There is periventricular and subcortical white matter hypoattenuation, most likely representing microangiopathic disease No acute calvarial fracture. The sinuses and mastoid air cells are clear. CERVICAL SPINE: There is increased lordotic curvature of the spine. There is anatomic alignment of the vertebral bodies and posterior elements. The atlantoaxial and atlantooccipital articulations are maintained. Vertebral body heights are maintained. No visible acute fracture.. Multilevel mild disc degenerative changes. No prevertebral soft tissue swelling. No suspicious thyroid findings. No suspicious findings in the lung apices. CT/CT head/brain wo IV con IMPRESSION: 1. No CT evidence of acute intracranial hemorrhage or edematous territorial infarction.. 2. No CT evidence of acute fracture or malalignment in the cervical spine.
--- NOTE | ~2022-10-04 | CT_ITS ---
EXAMINATION: EXAMINATION: HEAD CT WITHOUT CONTRAST CERVICAL SPINE CT WITHOUT CONTRAST CLINICAL INFORMATION: Alcohol question fall COMPARISON: CT head 02/15/2022 TECHNIQUE: Contiguous axial imaging of the head was performed without the administration of IV contrast. Axial multidetector volumetric images were also performed through the cervical spine without contrast. Multiplanar reconstructed images in coronal and sagittal orientations were submitted. DOSE: 970 mGy-cm FINDINGS: HEAD: There is no evidence of acute intracranial hemorrhage or territorial infarction. No abnormal mass-effect or midline shift. No extra-axial fluid collections. Weaver to white matter differentiation is well preserved. Commensurate prominence of the ventricles and sulci is compatible with generalized parenchymal volume loss. There is periventricular and subcortical white matter hypoattenuation, most likely representing microangiopathic disease No acute calvarial fracture. The sinuses and mastoid air cells are clear. CERVICAL SPINE: There is increased lordotic curvature of the spine. There is anatomic alignment of the vertebral bodies and posterior elements. The atlantoaxial and atlantooccipital articulations are maintained. Vertebral body heights are maintained. No visible acute fracture.. Multilevel mild disc degenerative changes. No prevertebral soft tissue swelling. No suspicious thyroid findings. No suspicious findings in the lung apices. CT/CT cervical spine wo IV con IMPRESSION: 1. No CT evidence of acute intracranial hemorrhage or edematous territorial infarction.. 2. No CT evidence of acute fracture or malalignment in the cervical spine.
--- NOTE | 2022-10-04 09:40 | ED.GENADULT ---
HPI - General Adult General Chief complaint: ETOH/Substance Use <Vanessa Lopez CNP - Last Filed: 10/04/22 17:48> Stated complaint: ETOH INTOX PER EMS <Vanessa Lopez CNP - Last Filed: 10/04/22 17:48> Time Seen by Provider: 10/04/22 09:26 <Vanessa Lopez CNP - Last Filed: 10/04/22 17:48> Source: patient and EMS <Vanessa Lopez CNP - Last Filed: 10/04/22 17:48> Mode of arrival: EMS <Vanessa Lopez CNP - Last Filed: 10/04/22 17:48> Limitations: altered mental status ( intoxicated) <Vanessa Lopez CNP - Last Filed: 10/04/22 17:48> History of Present Illness HPI narrative: patient is a 52-year-old male who presents to the emergency department via EMS. Bystanders contacted because they found him sleeping outdoors. Patient endorsing EtOH, unknown amount. He does endorse drinking vodka. he states I just fell asleep nothing is wrong with that . He is calm and cooperative. Reporting no physical complaints. <Vanessa Lopez CNP - Last Filed: 10/04/22 17:48> Related Data Allergies/adverse reactions: Allergies Allergy/AdvReac Type Severity Reaction Status Date / Time No Known Allergies Allergy Unverified 07/30/20 15:15 [No Known Allergies*] <Vanessa Lopez CNP - Last Filed: 10/04/22 17:48> Review of Systems Review of Systems: Yes Unobtainable due to mental status ( Intoxication) <Vanessa Lopez CNP - Last Filed: 10/04/22 17:48> PMF Past Medical History Attestation statement: The following information was validated with the patient. <Vanessa Lopez CNP - Last Filed: 10/04/22 17:48> Source: old records reviewed <Vanessa Lopez CNP - Last Filed: 10/04/22 17:48> Social History Social History: Social History Alcohol intake: current Patient Tobacco Use Status: Tobacco use Unknown Advance Directives: No Advance Directives Information Provided: No <Vanessa Lopez CNP - Last Filed: 10/04/22 17:48> Physical Exam ED Vital Signs: Vital Signs - 24 hr 10/04/22 09:24 10/04/22 10:20 10/04/22 11:47 Temperature 96.6 F L 97.0 F 96.5 F L Pulse Rate 92 78 80 Respiratory Rate 18 16 16 Blood Pressure 144/101 H 124/71 119/76 Pulse Oximetry 97 97 98 Oxygen Delivery Method Room Air Room Air Room Air 10/04/22 13:51 10/04/22 15:51 10/04/22 17:55 Temperature 97.3 F 98.0 F 97.6 F Pulse Rate 86 98 105 H Respiratory Rate 16 16 16 Blood Pressure 104/56 L 109/73 110/61 Pulse Oximetry 96 98 Oxygen Delivery Method Room Air Room Air 10/04/22 20:00 10/04/22 22:00 Temperature 99.0 F 98.1 F Pulse Rate 109 H 109 H Respiratory Rate 16 16 Blood Pressure 124/83 151/80 H Pulse Oximetry 96 97 Oxygen Delivery Method Room Air Room Air BMI result Body Mass Index 19.3 <Vanessa Lopez CNP - Last Filed: 10/04/22 17:48> Vital Signs - 24 hr 10/04/22 09:24 10/04/22 10:20 10/04/22 11:47 Temperature 96.6 F L 97.0 F 96.5 F L Pulse Rate 92 78 80 Respiratory Rate 18 16 16 Blood Pressure 144/101 H 124/71 119/76 Pulse Oximetry 97 97 98 Oxygen Delivery Method Room Air Room Air Room Air 10/04/22 13:51 10/04/22 15:51 10/04/22 17:55 Temperature 97.3 F 98.0 F 97.6 F Pulse Rate 86 98 105 H Respiratory Rate 16 16 16 Blood Pressure 104/56 L 109/73 110/61 Pulse Oximetry 96 98 Oxygen Delivery Method Room Air Room Air 10/04/22 20:00 10/04/22 22:00 Temperature 99.0 F 98.1 F Pulse Rate 109 H 109 H Respiratory Rate 16 16 Blood Pressure 124/83 151/80 H Pulse Oximetry 96 97 Oxygen Delivery Method Room Air Room Air BMI result Body Mass Index 19.3 <MADISON Holguin - Last Filed: 10/05/22 02:32> Appearance: Alert. No acute distress.? appears intoxicated Head: normocephalic atraumatic Eyes: Pupils equal, round and reactive to light.? EOMI. No nystagmus. ENT: Pharynx normal.?? Neck: Normal inspection.? Neck supple.?? No midline cervical spine tenderness, step-offs, deformities. CVS: Heart sounds normal. Normal heart rate and rhythm.? Pulses normal.?? Respiratory: No respiratory distress.? Lung sounds clear to auscultation bilaterally?? Abdomen: Soft and non-tender. Normoactive bowel sounds. Skin: Skin warm and dry.? Normal skin color.? Extremities: No lower extremity edema.? No calf ttp? Neuro: Moves all extremities spontaneously. Sensation intact bilaterally. No focal neuro deficits. <Vanessa Lopez CNP - Last Filed: 10/04/22 17:48> Course Course Course Narrative: Patient is a 52-year-old male presenting to emergency department intoxicated from alcohol consumption. Presented by EMS after bystanders called, he was sleeping outdoors in the cold. Patient states he fell asleep. denies any fall. Denying headache or neck pain. Full range of motion present to the neck. No focal neurological deficits. No visible injuries. No physical complaints at the time of examination. Will obtain basic labs, RUSSO, and ethanol level. At the time of initial examination 09:40 hypothermic 96.6 with mild tachycardia pulse 92, likely secondary to patient having been sleeping outside in cold weather. At this time no infection is suspected. Will monitor. <Vanessa Lopez CNP - Last Filed: 10/04/22 17:48> Reevaluation(s) Reevaluation #1: CBC reveals macrocytic anemia, does not meet transfusion criteria, thrombocytopenia consistent with baseline. CMP overall unremarkable, AST elevated consistent with baseline. Urinalysis without evidence of infection. Drug of abuse screen negative. Ethanol level 465. No apparent distress at this time. <Vanessa Lopez CNP - Last Filed: 10/04/22 17:48> Time: 12:00 <Vanessa Lopez CNP - Last Filed: 10/04/22 17:48> Reevaluation #2: Patient has been eating and drinking, mostly sleeping. Nursing staff attempted to ambulate patient, very unsteady on feet. Almost falling backwards on stretcher. Not appearing clinically sober at this time. When asked whether patient is interested in any detox services, he rolls his eyes and does not answer questioning. <Vanessa Lopez CNP - Last Filed: 10/04/22 17:48> Time: 17:00 <Vanessa Lopez CNP - Last Filed: 10/04/22 17:48> Reevaluation #3: patient signed out to [facility] pending clinical sobriety. Patient to be offered detox if he is if interested. Otherwise if he declines, patient could be cleared for discharge home. <Vanessa Lopez CNP - Last Filed: 10/04/22 17:48> Time: 17:47 <Vanessa Lopez CNP - Last Filed: 10/04/22 17:48> Additional Reevaluation(s): CT of head and neck with no acute findings. No signs of intracranial hemorrhage, traumatic subluxations or dislocations. Plan at this time is for clinical sobriety, and offering him detox. 0021 Patient has been ambulatory around the department alert and oriented x4. At this time patient clinically sober will discharge home. 0050 This PA noted that when patient was walking out he appeared extremely shaky, reports he is feeling tremulous, anxious like times when he is withdrawn from alcohol CIWA score of 14. At this time patient will be given Ativan 2mg po . 0230 Upon re-evaluation of patient patient is noted to have a CIWA 8- phenobarb will be ordered per protocol. Will admit patient to hospitalist for acute alcohol withdrawal. To note upon re-evaluation patient was noted to have upper extremity resting tremors, tongue fasciculations, anxiety, slight headache. <MADISON Holguin - Last Filed: 10/05/22 02:32> Medications Administered Discontinued Medications Generic Name Dose Route Start Last Admin Trade Name Freq PRN Reason Stop Dose Admin Lorazepam 2 mg 10/05/22 00:49 10/05/22 00:58 Lorazepam 1 Mg Tablet PO 10/05/22 00:50 2 mg ONCE ONE Administration <Vanessa Lopez CNP - Last Filed: 10/04/22 17:48> Medications Administered Discontinued Medications Generic Name Dose Route Start Last Admin Trade Name David PRN Reason Stop Dose Admin Lorazepam 2 mg 10/05/22 00:49 10/05/22 00:58 Lorazepam 1 Mg Tablet PO 10/05/22 00:50 2 mg ONCE ONE Administration <MADISON Holguin - Last Filed: 10/05/22 02:32> Medical Decision Making Medical Records Medical records reviewed: Yes I reviewed the patient's medical records. <Vanessa Lopez CNP - Last Filed: 10/04/22 17:48> Lab Data Lab results reviewed: Yes I reviewed the patient's lab results. <Vanessa Lopez CNP - Last Filed: 10/04/22 17:48> Result diagrams: : 10/04/22 10:16 10/04/22 10:16 <Vanessa Lopez CNP - Last Filed: 10/04/22 17:48> Labs: Lab Results 10/04/22 10/04/22 10/04/22 Range/Units 10:16 10:16 10:16 WBC 6.3 (4.8-10.8) X10*3/uL RBC 3.38 L D (4.60-5.80) X10*6/uL Hgb 11.6 L (14.0-18.0) g/dl Hct 35.9 L (42.0-52.0) % MCV 106.2 H (80.0-98.0) fL MCH 34.3 H (27.0-33.0) pg MCHC 32.3 (31.0-36.0) g/dl RDW 13.4 (11.0-16.0) % Plt Count 126 L D (160-400) X10*3/uL MPV 12.2 (9.4-12.4) fL Immature Gran % (Auto) 0.3 (0.0-0.4) % Neut % (Auto) 65.1 (45-73) % Lymph % (Auto) 24.3 (20-40) % [place] % (Auto) 8.3 (2-11) % Eos % (Auto) 1.0 (0-4) % Baso % (Auto) 1.0 (0-2) % Lymph # (Auto) 1.5 (1.2-4.9) X10*3/uL [place] # (Auto) 0.5 (0.1-1.2) X10*3/uL Eos # (Auto) 0.1 (0.0-0.4) X10*3/uL Baso # (Auto) 0.1 (0.0-0.2) X10*3/uL Abs Immat Gran (auto) 0.02 (0.00-0.03) X10*3/uL Absolute Neuts (auto) 4.1 (2.0-8.3) x10*3/uL Absolute Nucleated RBC 0.000 (0.0-0.012) X10*3/uL Nucleated RBC % (auto) 0.0 (0.0-0.2) /100WBC Sodium 144 (135-145) mmol/L Potassium 4.3 (3.3-5.1) mmol/L Chloride 106 (96-108) mmol/L Carbon Dioxide 28 (22-29) mmol/L Anion Gap 14 (12-20) BUN 10 D (9-16) mg/dL Creatinine 0.60 (0.5-1.4) mg/dL Estim Creat Clear Calc 109.5 Estimated GFR > 60 Random Glucose 109 (60-115) mg/dL Calcium 8.4 D (8.4-10.2) mg/dL Magnesium 1.6 (1.6-2.6) mg/dL Total Bilirubin 0.4 (0.0-1.0) mg/dL AST 94 H (5-37) U/L ALT 23 (0-40) U/L Alkaline Phosphatase 189 H D (39-117) U/L Total Protein 8.1 H (6.5-8.0) g/dL Albumin 3.5 (3.5-5.0) g/dL Urine Color Urine Appearance Urine pH (5.0-9.0) Ur Specific [place] (1.005-1.025) Urine Protein (Neg-Trace) mg/dL Urine Glucose (UA) (Negative) mg/dL Urine Ketones (Negative) mg/dL Urine Blood (Negative) Urine Nitrite (Negative) Ur Leukocyte Esterase (Negative) Urine Opiates Screen (Not Detect) Urine Fentanyl Screen (Not Detect) Ur Barbiturates Screen (Not Detect) Ur Phencyclidine Scrn (Not Detect) Ur Amphetamines Screen (Not Detect) U Benzodiazepines Scrn (Not Detect) Urine Cocaine Screen (Not Detect) U Marijuana (THC) Screen (Not Detect) Ethyl Alcohol 465 H* mg/dL COVID-19 (TAI) Negative (Negative) COVID-19 Clin Com See Note 10/04/22 10/04/22 Range/Units 10:18 10:18 WBC (4.8-10.8) X10*3/uL RBC (4.60-5.80) X10*6/uL Hgb (14.0-18.0) g/dl Hct (42.0-52.0) % MCV (80.0-98.0) fL MCH (27.0-33.0) pg MCHC (31.0-36.0) g/dl RDW (11.0-16.0) % Plt Count (160-400) X10*3/uL MPV (9.4-12.4) fL Immature Gran % (Auto) (0.0-0.4) % Neut % (Auto) (45-73) % Lymph % (Auto) (20-40) % [place] % (Auto) (2-11) % Eos % (Auto) (0-4) % Baso % (Auto) (0-2) % Lymph # (Auto) (1.2-4.9) X10*3/uL [place] # (Auto) (0.1-1.2) X10*3/uL Eos # (Auto) (0.0-0.4) X10*3/uL Baso # (Auto) (0.0-0.2) X10*3/uL Abs Immat Gran (auto) (0.00-0.03) X10*3/uL Absolute Neuts (auto) (2.0-8.3) x10*3/uL Absolute Nucleated RBC (0.0-0.012) X10*3/uL Nucleated RBC % (auto) (0.0-0.2) /100WBC Sodium (135-145) mmol/L Potassium (3.3-5.1) mmol/L Chloride (96-108) mmol/L Carbon Dioxide (22-29) mmol/L Anion Gap (12-20) BUN (9-16) mg/dL Creatinine (0.5-1.4) mg/dL Estim Creat Clear Calc Estimated GFR Random Glucose (60-115) mg/dL Calcium (8.4-10.2) mg/dL Magnesium (1.6-2.6) mg/dL Total Bilirubin (0.0-1.0) mg/dL AST (5-37) U/L ALT (0-40) U/L Alkaline Phosphatase (39-117) U/L Total Protein (6.5-8.0) g/dL Albumin (3.5-5.0) g/dL Urine Color Yellow Urine Appearance Clear Urine pH 5.5 (5.0-9.0) Ur Specific [place] 1.010 (1.005-1.025) Urine Protein Negative (Neg-Trace) mg/dL Urine Glucose (UA) Negative (Negative) mg/dL Urine Ketones Negative (Negative) mg/dL Urine Blood Negative (Negative) Urine Nitrite Negative (Negative) Ur Leukocyte Esterase Negative (Negative) Urine Opiates Screen Not Detected (Not Detect) Urine Fentanyl Screen Not Detected (Not Detect) Ur Barbiturates Screen Not Detected (Not Detect) Ur Phencyclidine Scrn Not Detected (Not Detect) Ur Amphetamines Screen Not Detected (Not Detect) U Benzodiazepines Scrn Not Detected (Not Detect) Urine Cocaine Screen Not Detected (Not Detect) U Marijuana (THC) Screen Not Detected (Not Detect) Ethyl Alcohol mg/dL COVID-19 (TAI) (Negative) COVID-19 Clin Com <Vanessa Lopez, [employer] EXCHANGE TRADER - Last Filed: 10/04/22 17:48> Lab Results 10/04/22 10/04/22 10/04/22 Range/Units 10:16 10:16 10:16 WBC 6.3 (4.8-10.8) X10*3/uL RBC 3.38 L D (4.60-5.80) X10*6/uL Hgb 11.6 L (14.0-18.0) g/dl Hct 35.9 L (42.0-52.0) % MCV 106.2 H (80.0-98.0) fL MCH 34.3 H (27.0-33.0) pg MCHC 32.3 (31.0-36.0) g/dl RDW 13.4 (11.0-16.0) % Plt Count 126 L D (160-400) X10*3/uL MPV 12.2 (9.4-12.4) fL Immature Gran % (Auto) 0.3 (0.0-0.4) % Neut % (Auto) 65.1 (45-73) % Lymph % (Auto) 24.3 (20-40) % [place] % (Auto) 8.3 (2-11) % Eos % (Auto) 1.0 (0-4) % Baso % (Auto) 1.0 (0-2) % Lymph # (Auto) 1.5 (1.2-4.9) X10*3/uL [place] # (Auto) 0.5 (0.1-1.2) X10*3/uL Eos # (Auto) 0.1 (0.0-0.4) X10*3/uL Baso # (Auto) 0.1 (0.0-0.2) X10*3/uL Abs Immat Gran (auto) 0.02 (0.00-0.03) X10*3/uL Absolute Neuts (auto) 4.1 (2.0-8.3) x10*3/uL Absolute Nucleated RBC 0.000 (0.0-0.012) X10*3/uL Nucleated RBC % (auto) 0.0 (0.0-0.2) /100WBC Sodium 144 (135-145) mmol/L Potassium 4.3 (3.3-5.1) mmol/L Chloride 106 (96-108) mmol/L Carbon Dioxide 28 (22-29) mmol/L Anion Gap 14 (12-20) BUN 10 D (9-16) mg/dL Creatinine 0.60 (0.5-1.4) mg/dL Estim Creat Clear Calc 109.5 Estimated GFR > 60 Random Glucose 109 (60-115) mg/dL Calcium 8.4 D (8.4-10.2) mg/dL Magnesium 1.6 (1.6-2.6) mg/dL Total Bilirubin 0.4 (0.0-1.0) mg/dL AST 94 H (5-37) U/L ALT 23 (0-40) U/L Alkaline Phosphatase 189 H D (39-117) U/L Total Protein 8.1 H (6.5-8.0) g/dL Albumin 3.5 (3.5-5.0) g/dL Urine Color Urine Appearance Urine pH (5.0-9.0) Ur Specific [place] (1.005-1.025) Urine Protein (Neg-Trace) mg/dL Urine Glucose (UA) (Negative) mg/dL Urine Ketones (Negative) mg/dL Urine Blood (Negative) Urine Nitrite (Negative) Ur Leukocyte Esterase (Negative) Urine Opiates Screen (Not Detect) Urine Fentanyl Screen (Not Detect) Ur Barbiturates Screen (Not Detect) Ur Phencyclidine Scrn (Not Detect) Ur Amphetamines Screen (Not Detect) U Benzodiazepines Scrn (Not Detect) Urine Cocaine Screen (Not Detect) U Marijuana (THC) Screen (Not Detect) Ethyl Alcohol 465 H* mg/dL COVID-19 (TAI) Negative (Negative) COVID-19 Clin Com See Note 10/04/22 10/04/22 Range/Units 10:18 10:18 WBC (4.8-10.8) X10*3/uL RBC (4.60-5.80) X10*6/uL Hgb (14.0-18.0) g/dl Hct (42.0-52.0) % MCV (80.0-98.0) fL MCH (27.0-33.0) pg MCHC (31.0-36.0) g/dl RDW (11.0-16.0) % Plt Count (160-400) X10*3/uL MPV (9.4-12.4) fL Immature Gran % (Auto) (0.0-0.4) % Neut % (Auto) (45-73) % Lymph % (Auto) (20-40) % [place] % (Auto) (2-11) % Eos % (Auto) (0-4) % Baso % (Auto) (0-2) % Lymph # (Auto) (1.2-4.9) X10*3/uL [place] # (Auto) (0.1-1.2) X10*3/uL Eos # (Auto) (0.0-0.4) X10*3/uL Baso # (Auto) (0.0-0.2) X10*3/uL Abs Immat Gran (auto) (0.00-0.03) X10*3/uL Absolute Neuts (auto) (2.0-8.3) x10*3/uL Absolute Nucleated RBC (0.0-0.012) X10*3/uL Nucleated RBC % (auto) (0.0-0.2) /100WBC Sodium (135-145) mmol/L Potassium (3.3-5.1) mmol/L Chloride (96-108) mmol/L Carbon Dioxide (22-29) mmol/L Anion Gap (12-20) BUN (9-16) mg/dL Creatinine (0.5-1.4) mg/dL Estim Creat Clear Calc Estimated GFR Random Glucose (60-115) mg/dL Calcium (8.4-10.2) mg/dL Magnesium (1.6-2.6) mg/dL Total Bilirubin (0.0-1.0) mg/dL AST (5-37) U/L ALT (0-40) U/L Alkaline Phosphatase (39-117) U/L Total Protein (6.5-8.0) g/dL Albumin (3.5-5.0) g/dL Urine Color Yellow Urine Appearance Clear Urine pH 5.5 (5.0-9.0) Ur Specific [place] 1.010 (1.005-1.025) Urine Protein Negative (Neg-Trace) mg/dL Urine Glucose (UA) Negative (Negative) mg/dL Urine Ketones Negative (Negative) mg/dL Urine Blood Negative (Negative) Urine Nitrite Negative (Negative) Ur Leukocyte Esterase Negative (Negative) Urine Opiates Screen Not Detected (Not Detect) Urine Fentanyl Screen Not Detected (Not Detect) Ur Barbiturates Screen Not Detected (Not Detect) Ur Phencyclidine Scrn Not Detected (Not Detect) Ur Amphetamines Screen Not Detected (Not Detect) U Benzodiazepines Scrn Not Detected (Not Detect) Urine Cocaine Screen Not Detected (Not Detect) U Marijuana (THC) Screen Not Detected (Not Detect) Ethyl Alcohol mg/dL COVID-19 (TAI) (Negative) COVID-19 Clin Com <MADISON Holguin - Last Filed: 10/05/22 02:32> Critical Care Time Critical Care Time Critical Care Time: Yes <MADISON Holguin - Last Filed: 10/05/22 02:32> Total Critical Care Time: 35 <MADISON Holguin - Last Filed: 10/05/22 02:32> Attestation: I attest to this time spent taking care of the patient, obtaining history, physical, reviewing labs, imaging, speaking to my attending <MADISON Holguin - Last Filed: 10/05/22 02:32> Discharge Plan Discharge Clinical Impression: Alcoholic intoxication, Alcohol withdrawal syndrome <Vanessa Lopez CNP - Last Filed: 10/04/22 17:48> Patient Disposition: Admitted As Inpatient <Vanessa Lopez CNP - Last Filed: 10/04/22 17:48> Instructions: Alcohol Intoxication (ED) <Vanessa Lopez CNP - Last Filed: 10/04/22 17:48> Additional Instructions: Take your medications as prescribed. If you were prescribed antibiotics today, it is important that you take your medication to their entirety, do not skip any doses, do not finish them early. Follow-up with your primary care provider this week. Return to the emergency department with new or worsening symptoms. Such as fevers, chills, chest pain, shortness of breath, nausea, vomiting, dizziness, headache, vision changes, lethargy In case of emergency call 911 <Vanessa Lopez CNP - Last Filed: 10/04/22 17:48> Referrals: [facility] [Provider Group] - 2 days Awilda Robles [Registered Nurse] - 2 days <Vanessa Lopez CNP - Last Filed: 10/04/22 17:48> Stand Alone Forms: Work/School Release <Vanessa Lopez CNP - Last Filed: 10/04/22 17:48> Interventions: [place]-Suicide Risk Severity Scale Last Done: 10/04/22 17:29 <Vanessa Lopez CNP - Last Filed: 10/04/22 17:48>
[2022-10-04 10:24] LABS: MANUAL DIFF FLAG NO
[2022-10-04 10:32] LABS: Basophils Absolute Auto 0.1 X10*3/uL (0.0-0.2); Eosinophils Absolute Auto 0.1 X10*3/uL (0.0-0.4); Hematocrit 35.9 % (42.0-52.0); Hemoglobin 11.6 g/dl (14.0-18.0); Imm Gran Abs Auto 0.02 X10*3/uL (0.00-0.03); Imm Gran Pct Auto 0.3 % (0.0-0.4); Lymphocytes Absolute Auto 1.5 X10*3/uL (1.2-4.9); Lymphocytes Percent Auto 24.3 % (20-40); Mean Corpuscular HGB Conc 32.3 g/dl (31.0-36.0); Mean Corpuscular Hemoglobin 34.3 pg (27.0-33.0); Mean Corpuscular Volume 106.2 fL (80.0-98.0); Mean Platelet Volume 12.2 fL (9.4-12.4); Monocytes Absolute Auto 0.5 X10*3/uL (0.1-1.2); Monocytes Percent Auto 8.3 % (2-11); Neutrophils Absolute Auto 4.1 x10*3/uL (2.0-8.3); Neutrophils Percent Auto 65.1 % (45-73); Platelet Count 126 X10*3/uL (160-400); Red Blood Count 3.38 X10*6/uL (4.60-5.80); Red Cell Distribution Width 13.4 % (11.0-16.0); White Blood Count 6.3 X10*3/uL (4.8-10.8)
[2022-10-04 10:37] LABS: Appearance Urine Clear; Color Urine Yellow; Glucose Urine UA Negative (Negative); Leukocyte Esterase Urine Negative (Negative); Nitrite Urine Negative (Negative); PH 5.5 (5.0-9.0); Urine Blood Negative (Negative); Urine Ketones Negative (Negative); Urine Protein Negative (Neg-Trace)
[2022-10-04 10:45] LABS: COVID-19 Test Negative (Negative); IDNOW Serial# BCCEAD1C
[2022-10-04 10:48] LABS: Alanine Aminotransferase 23 U/L (0-40); Albumin Level 3.5 g/dL (3.5-5.0); Alkaline Phosphatase 189 U/L (39-117); Anion Gap 14 (12-20); Aspartate Amino Transferase 94 U/L (5-37); Bilirubin Total 0.4 mg/dL (0.0-1.0); Blood Urea Nitrogen 10 mg/dL (9-16); Calcium 8.4 mg/dL (8.4-10.2); Carbon Dioxide 28 mmol/L (22-29); Chloride 106 mmol/L (96-108); Creatinine Clr Calc Pharmacy 109.5; Estimated Glomerular Filt Rate > 60; Ethanol 465 mg/dL; Glucose Random 109 mg/dL (60-115); Magnesium 1.6 mg/dL (1.6-2.6); Potassium 4.3 mmol/L (3.3-5.1); Sodium 144 mmol/L (135-145); Total Protein 8.1 g/dL (6.5-8.0)
[2022-10-04 10:50] LABS: Amphetamine Screen Urine Not Detected (Not Detect); Barbiturates, Urine Not Detected (Not Detect); Benzodiazepines Screen Urine Not Detected (Not Detect); Cannabinoid Screen Urine Not Detected (Not Detect); Cocaine Screen Urine Not Detected (Not Detect); Fentanyl, urine Not Detected (Not Detect); Opiate Screen Urine Not Detected (Not Detect); Phencyclidine Screen Urine Not Detected (Not Detect)
--- NOTE | 2022-10-04 16:43 | PC.NURSE ---
tech attempted to ambulate patient, patient was very unsteady on his feet, patient put back in bed.
--- NOTE | 2022-10-04 19:05 | PC.NURSE ---
tech got pt oob to ambulate pt was still unsteady and unable to ambulate independently
[2022-10-05] VITALS (13 sets, daily range): BP systolic 140–166; BP diastolic 67–90; PULSE 85–103; RESP 12–19; TEMP 36.4–37.9; O2SAT 96–100
[2022-10-05] MEDS: LORazepam 1 MG TABLET 2 MG PO (00:58)
[2022-10-05] MEDS: Lactated Ringers 1,000 ML 100 ML IVCONT ×3 (03:04→21:21)
[2022-10-05] MEDS: Enoxaparin Sodium 40 MG/0.4 ML SYRINGE SUBCUT (03:04)
[2022-10-05] MEDS: PHENobarbitaL sodium 130 MG/ML IM ONCE 260 MG IM (03:04)
[2022-10-05] MEDS: Acetaminophen 325 MG TABLET 650 MG PO (05:54)
--- NOTE | 2022-10-05 06:17 | P.HPHOSP_ITS ---
History of Present Illness Date of Service: 10/05/22 Chief Complaint: Alcohol intoxication This is a 52-year-old male with past medical history of alcohol abuse presents to the hospital after bystander called when he found to be sleeping outdoors in the cold. Patient reports that he was drunk, and fell sleep. He reports no fall, no loss of consciousness, no weakness numbness or tingling in any of his extremities, no chest pain, no abdominal pain, no nausea or vomiting, no diarrhea constipation, no urinary symptoms and no lower extremity edema. The patient is currently withdrawing, he is feeling a jittery, anxious, and feels that he is withdrawing from alcohol. On arrival to the ED patient hemodynamically stable with a temperature of 96.6 degrees, otherwise no abnormal vitals Labs are significant for WBC count 6.3, hemoglobin of 11.6, medical 35.9, AST of 94, alcohol level of 465, Cervical and head CT negative While in the ED patient's starts developing alcohol withdrawal with a CIWA score of 19. pt started on phenobabr and will be admitted for further management. Review of Systems Review of Systems: Yes all other systems are reviewed and are negative [facility] Medical History Alcohol abuse Surgical History (Updated 10/05/22 @ 06:21 by Sarah Chaudhary MD) No history of previous surgery Social History Household Members: None Household Members Other:: pt homeless Housing: Other Do you presently have visiting nurse or other home services: No Alcohol intake: current Patient Tobacco Use Status: Former Tobacco user Smoked in Last 30 Days: No Patient Interested in Nicotine Replacement: No Patient Given Instructions on How to Stop Smoking: No Second Hand Smoke Exposure: No Use of substances other than those prescribed or required for medical reasons: No Currently Displaying Signs/Symptoms of Drug Intoxication Withdrawal: No Any prior treatment program specific to substance use: No Do you feel safe in your current relationship?: No Current Relationship Is there a partner from a previous relationship who is making you feel unsafe now?: No Are you made to feel afraid or neglected: No Advance Directives: No Advance Directives Information Provided: No Advance Directives on File: No Do you have thoughts of harming others: None Do you have a plan to hurt others: No Plan Meds Allergies Allergy/AdvReac Type Severity Reaction Status Date / Time No Known Allergies Allergy Unverified 07/30/20 15:15 [No Known Allergies*] Active Medications: Current Medications Acetaminophen (Acetaminophen 325 Mg Tablet) 650 mg PO Q6H PRN PRN Reason: Pain, Mild (Pain Scale 1-3) Last Admin: 10/05/22 05:54 Dose: 650 mg Docusate Sodium (Docusate Sodium 100 Mg Capsule) 100 mg PO DAILY PRN PRN Reason: Constipation Enoxaparin Sodium (Enoxaparin Sodium 40 Mg/0.4 Ml Syringe) 40 mg SUBCUT Q24H [facility] Last Admin: 10/05/22 03:04 Dose: 40 mg Folic Acid (Folic Acid 1 Mg Tablet) 1 mg PO DAILY [facility] Lactated Ringer's (Lr) 1,000 mls @ 100 mls/hr IVCONT .Q10H [facility] Last Admin: 10/05/22 03:04 Dose: 100 mls/hr Ondansetron HCl (Ondansetron Hcl 4 Mg/2 Ml Vial) 4 mg IVPUSH Q8H PRN PRN Reason: Nausea and Vomiting Pharmacy Consult (Consult Rx Etoh Phenob Im/Po) 0 each MISCELLANE ONCE PRN; Protocol PRN Reason: Consult order Stop: 10/09/22 02:27 Phenobarbital Sodium (Phenobarbital Sodium 130 Mg/Ml Vial Im Q3hx2) 195 mg IM Q3H [facility] Stop: 10/05/22 09:01 Sodium Chloride (0.9 % Sodium Chloride Flush 3 Ml Syringe) 3 ml IVFLUSH QSHIFT [facility] Thiamine HCl (Thiamine Hcl 100 Mg Tablet) 100 mg PO DAILY [facility] Physical Exam Vital Signs and Narrative: Vital Signs: Last Vital Signs Temp 98.9 F 10/05/22 03:12 Pulse 102 H 10/05/22 03:12 Resp 19 10/05/22 03:12 BP 151/90 H 10/05/22 03:12 Pulse Ox 97 10/05/22 03:12 O2 Del Method 10/05/22 03:12 BMI result Body Mass Index 19.3 Const: Other: Appears anxious General: cooperative and no acute distress Orientation/consciousness: patient oriented x3 Eyes: General: appearance normal, both eyes and all related structures Resp: Effort & Inspection: normal respiratory effort Auscultation: clear to auscultation bilaterally Cardio: Rate: regular rate Rhythm: regular rhythm GI: Palpation (GI): Soft to palpation Auscultation: normal bowel sounds Skin: General skin exam: no rashes or lesions noted Neuro: Other: Asterix[place], jittery, anxious appearing General: patient oriented x3 Cognition (Neuro): normal cognition Extrem: General: Yes normal to inspection and Yes no pedal edema Results Labs CBC and Chem 7: 10/04/22 10:16 10/04/22 10:16 Labs: Laboratory Results - last 24 hr 10/04/22 10/04/22 10/04/22 10:16 10:16 10:16 MCV 106.2 H MCH 34.3 H MCHC 32.3 RDW 13.4 Plt Count 126 L D MPV 12.2 Immature Gran % (Auto) 0.3 Neut % (Auto) 65.1 Lymph % (Auto) 24.3 [place] % (Auto) 8.3 Eos % (Auto) 1.0 Baso % (Auto) 1.0 Lymph # (Auto) 1.5 [place] # (Auto) 0.5 Eos # (Auto) 0.1 Baso # (Auto) 0.1 Abs Immat Gran (auto) 0.02 Absolute Neuts (auto) 4.1 Absolute Nucleated RBC 0.000 Nucleated RBC % (auto) 0.0 Anion Gap 14 Estim Creat Clear Calc 109.5 Estimated GFR > 60 Random Glucose 109 Calcium 8.4 D Magnesium 1.6 Total Bilirubin 0.4 AST 94 H ALT 23 Alkaline Phosphatase 189 H D Total Protein 8.1 H Albumin 3.5 Urine Color Urine Appearance Urine pH Ur Specific [place] Urine Protein Urine Glucose (UA) Urine Ketones Urine Blood Urine Nitrite Ur Leukocyte Esterase Urine Opiates Screen Urine Fentanyl Screen Ur Barbiturates Screen Ur Phencyclidine Scrn Ur Amphetamines Screen U Benzodiazepines Scrn Urine Cocaine Screen U Marijuana (THC) Screen Ethyl Alcohol 465 H* COVID-19 (TAI) Negative COVID-19 Clin Com See Note 10/04/22 10/04/22 10:18 10:18 MCV MCH MCHC RDW Plt Count MPV Immature Gran % (Auto) Neut % (Auto) Lymph % (Auto) [place] % (Auto) Eos % (Auto) Baso % (Auto) Lymph # (Auto) [place] # (Auto) Eos # (Auto) Baso # (Auto) Abs Immat Gran (auto) Absolute Neuts (auto) Absolute Nucleated RBC Nucleated RBC % (auto) Anion Gap Estim Creat Clear Calc Estimated GFR Random Glucose Calcium Magnesium Total Bilirubin AST ALT Alkaline Phosphatase Total Protein Albumin Urine Color Yellow Urine Appearance Clear Urine pH 5.5 Ur Specific [place] 1.010 Urine Protein Negative Urine Glucose (UA) Negative Urine Ketones Negative Urine Blood Negative Urine Nitrite Negative Ur Leukocyte Esterase Negative Urine Opiates Screen Not Detected Urine Fentanyl Screen Not Detected Ur Barbiturates Screen Not Detected Ur Phencyclidine Scrn Not Detected Ur Amphetamines Screen Not Detected U Benzodiazepines Scrn Not Detected Urine Cocaine Screen Not Detected U Marijuana (THC) Screen Not Detected Ethyl Alcohol COVID-19 ([facility]I) COVID-19 Clin Com Imaging Radiologist's Impressions: Impressions Cervical Spine CT 10/04/22 17:[address]: [address] evidence of acute intracranial hemorrhage or edematous territorial infarction.. 2. No CT evidence of acute fracture or malalignment in the cervical spine. Head CT 10/04/22 17:[address]: 1[address] No [address] evidence of acute intracranial hemorrhage or edematous territorial infarction.. 2. No CT evidence of acute fracture or malalignment in the cervical spine. Assessment and Plan (1) Alcoholic intoxication: Status: Acute (2) Alcohol withdrawal syndrome: Status: Acute Plan 52-year-old male with history of alcohol abuse presents to the hospital after a bystander called EMS after founding him to be sleeping outside. Patient post alcohol intoxication. While waiting in the ED patient goes into alcohol withdrawal # alcohol abuse with withdrawal - patient started on phenobarb protocol - will place on IV fluids - thiamine and folic acid DVT prophylaxis: Lovenox Given patient's alcohol withdrawal with a high CIWA, patient required minimal 2 night inpatient hospital stay while being managed for alcohol withdrawal symptoms Quality Stroke Does the patient have a stroke diagnosis?: No VTE Prior VTE?: No VTE Risk Level:: Medical - moderate - high VTE Device Contraindication: Treatment Not Indicated VTE Drug Contraindication: N/A - Med Ordered
[2022-10-05] MEDS: PHENobarbitaL sodium 130 MG/ML VIAL IM Q3Hx2 195 MG IM ×2 (06:29→09:43)
[2022-10-05 07:09] LABS: MANUAL DIFF FLAG NO
[2022-10-05 07:14] LABS: Basophils Percent Auto 0.8 % (0-2); Eosinophils Percent Auto 0.5 % (0-4); Hematocrit 28.3 % (42.0-52.0); Hemoglobin 9.3 g/dl (14.0-18.0); Imm Gran Abs Auto 0.01 X10*3/uL (0.00-0.03); Imm Gran Pct Auto 0.3 % (0.0-0.4); Lymphocytes Absolute Auto 0.8 X10*3/uL (1.2-4.9); Mean Corpuscular HGB Conc 32.9 g/dl (31.0-36.0); Mean Corpuscular Hemoglobin 34.8 pg (27.0-33.0); Monocytes Absolute Auto 0.4 X10*3/uL (0.1-1.2); Monocytes Percent Auto 10.8 % (2-11); Neutrophils Absolute Auto 2.5 x10*3/uL (2.0-8.3); Neutrophils Percent Auto 66.6 % (45-73); Red Blood Count 2.67 X10*6/uL (4.60-5.80); Red Cell Distribution Width 13.4 % (11.0-16.0); White Blood Count 3.7 X10*3/uL (4.8-10.8)
[2022-10-05 07:28] LABS: Anion Gap 13 (12-20); Blood Urea Nitrogen 9 mg/dL (9-16); Calcium 8.3 mg/dL (8.4-10.2); Carbon Dioxide 26 mmol/L (22-29); Chloride 107 mmol/L (96-108); Creatinine Clr Calc Pharmacy 95.2; Estimated Glomerular Filt Rate > 60; Glucose Random 102 mg/dL (60-115); Potassium 4.1 mmol/L (3.3-5.1); Sodium 142 mmol/L (135-145)
[2022-10-05 07:49] LABS: Mean Platelet Volume 12.1 fL (9.4-12.4); Platelet Count 60 X10*3/uL (160-400)
[2022-10-05] MEDS: Folic Acid 1 MG TABLET PO (08:27)
[2022-10-05] MEDS: Thiamine HCL 100 MG TABLET PO (08:27)
[2022-10-05] MEDS: 0.9 % Sodium Chloride Flush 3 ML SYRINGE IVFLUSH ×2 (08:29→16:21)
--- NOTE | 2022-10-05 09:33 | PM.EVENT ---
Event Note Date of Service: 10/05/22 Event Note: admitted this morning with alcohol withdrawal, presently stable, continue management per H and P of this morning
--- NOTE | 2022-10-05 10:20 | MHC.CM.PN ---
w/imterpertor met with pt difficult to arouse timothy did say he is homeless and not vaccinated dc plan tbd pt to be seen by care team
--- NOTE | 2022-10-05 10:48 | PHA.MEDREC ---
Pharmacy Consult ? Medication Reconciliation Pharmacy has completed the medication reconciliation. Patient reported only an occasional aspirin. Isa Bustillos, EnedinaD
[2022-10-05] MEDS: PHENobarbitaL 15 MG TABLET 45 MG PO (21:00)
[2022-10-06 03:28] VITALS: BP 155/92; PULSE 93; RESP 19; TEMP 37.8; O2SAT 97
[2022-10-06] MEDS: Enoxaparin Sodium 40 MG/0.4 ML SYRINGE SUBCUT (04:11)
[2022-10-06] MEDS: Lactated Ringers 1,000 ML 100 ML IVCONT (06:47)
[2022-10-06 07:36] VITALS: BP 160/72; PULSE 89; RESP 20; TEMP 37.2; O2SAT 98
[2022-10-06] MEDS: Thiamine HCL 100 MG TABLET PO (08:23)
[2022-10-06] MEDS: Folic Acid 1 MG TABLET PO (08:23)
[2022-10-06] MEDS: PHENobarbitaL 15 MG TABLET 45 MG PO ×2 (08:23→20:00)
--- NOTE | 2022-10-06 08:44 | HO.PM.IMPN ---
Subjective Subjective Date of Service: 10/06/22 Interval History: f/u on alcohol withdrawal and unsteady gait interval history: no tremores, very unsteady on feet Review of Systems no fever or chills no tremors Physical Exam Vital Signs: Vital Signs: Last Vital Signs Temp 98.9 F 10/06/22 07:36 Pulse 89 10/06/22 07:36 Resp 20 10/06/22 07:36 BP 160/72 H 10/06/22 07:36 Pulse Ox 98 10/06/22 07:36 O2 Del Method 10/06/22 07:36 BMI result Body Mass Index 19.3 Const: Other: General: AO X 3, no acute distress Resp: CTA bilateral CVS: S1,S2,RRR GI: +BS, NT, no distention Skin: No rash Neuro: motor grossly intact, unsteady gait Psych: appropriate affect Objective Data Active Medications Acetaminophen (Acetaminophen 325 Mg Tablet) 650 mg PO Q6H PRN PRN Reason: Pain, Mild (Pain Scale 1-3) Last Admin: 10/05/22 05:54 Dose: 650 mg Documented By: PARAMJIT Docusate Sodium (Docusate Sodium 100 Mg Capsule) 100 mg PO DAILY PRN PRN Reason: Constipation Enoxaparin Sodium (Enoxaparin Sodium 40 Mg/0.4 Ml Syringe) 40 mg SUBCUT Q24H [facility] Last Admin: 10/06/22 04:11 Dose: 40 mg Documented By: PARAMJIT Folic Acid (Folic Acid 1 Mg Tablet) 1 mg PO DAILY [facility] Last Admin: 10/06/22 08:23 Dose: 1 mg Documented By: SHERRY Lactated Ringer's (Lr) 1,000 mls @ 100 mls/hr IVCONT .Q10H [facility] Last Admin: 10/06/22 06:47 Dose: 100 mls/hr Documented By: PARAMJIT Ondansetron HCl (Ondansetron Hcl 4 Mg/2 Ml Vial) 4 mg IVPUSH Q8H PRN PRN Reason: Nausea and Vomiting Pharmacy Consult (Consult Rx Etoh Phenob Im/Po) 0 each MISCELLANE ONCE PRN; Protocol PRN Reason: Consult order Stop: 10/09/22 02:27 Phenobarbital (Phenobarbital 15 Mg Tablet) 45 mg PO BID [facility]; Protocol Stop: 10/07/22 09:01 Last Admin: 10/06/22 08:23 Dose: 45 mg Documented By: SHERRY Phenobarbital (Phenobarbital 15 Mg Tablet) 15 mg PO BID [facility]; Protocol Stop: 10/09/22 09:01 Phenobarbital (Phenobarbital 15 Mg Tablet) 15 mg PO DAILY [facility]; Protocol Stop: 10/11/22 09:01 Sodium Chloride (0.9 % Sodium Chloride Flush 3 Ml Syringe) 3 ml IVFLUSH QSHIFT [facility] Last Admin: 10/06/22 08:23 Dose: Not Given Documented By: SHERRY Non-Admin Reason: IV Running Thiamine HCl (Thiamine Hcl 100 Mg Tablet) 100 mg PO DAILY [facility] Last Admin: 10/06/22 08:23 Dose: 100 mg Documented By: SHERRY Labs CBC & Chem 7: 10/05/22 06:58 10/05/22 06:58 Assessment and Plan (1) Alcoholic intoxication: Status: Acute (2) Alcohol withdrawal syndrome: Status: Acute Plan 52-year-old male with history of alcohol abuse presents to the hospital after a bystander called EMS after founding him to be sleeping outside. Patient post alcohol intoxication. While waiting in the ED patient goes into alcohol withdrawal # alcohol abuse with withdrawal - Continue phenobarbital protocl - -Hydrate -folic, thiamine replacement #Elevated BP, probably undiagnosed HTN -start Norvasc #Unsteady gait likely related to alcoholism, PT eval DVT prophylaxis: Lovenox need for inapitent: ongoing treatment for alcohol withdrawal and unsteady gait that needs pt eval Quality Stroke Does the patient have a stroke diagnosis?: No VTE Prior VTE?: No VTE Risk Level:: Medical - moderate - high VTE Device Contraindication: Treatment Not Indicated VTE Drug Contraindication: N/A - Med Ordered
[2022-10-06 11:34] VITALS: BP 147/63; PULSE 76; RESP 18; TEMP 36.7; O2SAT 99
--- NOTE | 2022-10-06 12:24 | MHC.CM.PN ---
PT WILL REMAIN INPT UNTIL TOMORROW FOR A PT EVAL AND POTENTIAL STR PLACEMENT
[2022-10-06 15:33] VITALS: BP 140/78; PULSE 94; RESP 18; TEMP 36.8; O2SAT 96
[2022-10-06] MEDS: 0.9 % Sodium Chloride Flush 3 ML SYRINGE IVFLUSH ×2 (15:47→19:55)
[2022-10-06 20:00] VITALS: BP 124/80; PULSE 88; RESP 18; TEMP 36.9; O2SAT 98
[2022-10-06 23:35] VITALS: BP 142/70; PULSE 93; RESP 16; TEMP 36.3; O2SAT 97
[2022-10-07 02:51] VITALS: BP 120/69; PULSE 104; RESP 16; TEMP 36.6; O2SAT 97
[2022-10-07] MEDS: Enoxaparin Sodium 40 MG/0.4 ML SYRINGE SUBCUT (02:51)
[2022-10-07] MEDS: PHENobarbitaL 15 MG TABLET 45 MG PO (07:40)
[2022-10-07] MEDS: 0.9 % Sodium Chloride Flush 3 ML SYRINGE IVFLUSH ×3 (07:40→20:18)
[2022-10-07] MEDS: Thiamine HCL 100 MG TABLET PO (07:41)
[2022-10-07] MEDS: Folic Acid 1 MG TABLET PO (07:41)
[2022-10-07 08:37] VITALS: BP 120/69; PULSE 104; O2SAT 97
--- NOTE | 2022-10-07 09:29 | HO.PM.IMPN ---
Subjective Subjective Date of Service: 10/07/22 Interval History: f/u on alcohol withdrawal and unsteady gait interval history: no tremores, still unsteady but better Review of Systems no fever or chills no tremors Physical Exam Vital Signs: Vital Signs: Last Vital Signs Temp 97.8 F 10/07/22 02:51 Pulse 104 H 10/07/22 08:37 Resp 16 10/07/22 02:51 BP 120/69 10/07/22 08:37 Pulse Ox 97 10/07/22 08:37 O2 Del Method 10/07/22 02:51 BMI result Body Mass Index 19.3 Const: Other: General: AO X 3, no acute distress Resp: CTA bilateral CVS: S1,S2,RRR GI: +BS, NT, no distention Skin: No rash Neuro: motor grossly intact, unsteady gait Psych: appropriate affect Objective Data Active Medications Acetaminophen (Acetaminophen 325 Mg Tablet) 650 mg PO Q6H PRN PRN Reason: Pain, Mild (Pain Scale 1-3) Last Admin: 10/05/22 05:54 Dose: 650 mg Documented By: PARAMJIT Docusate Sodium (Docusate Sodium 100 Mg Capsule) 100 mg PO DAILY PRN PRN Reason: Constipation Enoxaparin Sodium (Enoxaparin Sodium 40 Mg/0.4 Ml Syringe) 40 mg SUBCUT Q24H [facility] Last Admin: 10/07/22 02:51 Dose: 40 mg Documented By: OLEG Folic Acid (Folic Acid 1 Mg Tablet) 1 mg PO DAILY [facility] Last Admin: 10/07/22 07:41 Dose: 1 mg Documented By: WENDY Ondansetron HCl (Ondansetron Hcl 4 Mg/2 Ml Vial) 4 mg IVPUSH Q8H PRN PRN Reason: Nausea and Vomiting Pharmacy Consult (Consult Rx Etoh Phenob Im/Po) 0 each MISCELLANE ONCE PRN; Protocol PRN Reason: Consult order Stop: 10/09/22 02:27 Phenobarbital (Phenobarbital 15 Mg Tablet) 15 mg PO BID [facility]; Protocol Stop: 10/09/22 09:01 Phenobarbital (Phenobarbital 15 Mg Tablet) 15 mg PO DAILY [facility]; Protocol Stop: 10/11/22 09:01 Sodium Chloride (0.9 % Sodium Chloride Flush 3 Ml Syringe) 3 ml IVFLUSH QSHIFT [facility] Last Admin: 10/07/22 07:40 Dose: 3 ml Documented By: WENDY Thiamine HCl (Thiamine Hcl 100 Mg Tablet) 100 mg PO DAILY [facility] Last Admin: 10/07/22 07:41 Dose: 100 mg Documented By: WENDY Labs CBC & Chem 7: 10/05/22 06:58 10/05/22 06:58 Assessment and Plan (1) Alcoholic intoxication: Status: Acute (2) Alcohol withdrawal syndrome: Status: Acute (3) Unsteady gait: Status: Acute Plan 52-year-old male with history of alcohol abuse presents to the hospital after a bystander called EMS after founding him to be sleeping outside. Patient post alcohol intoxication. While waiting in the ED patient goes into alcohol withdrawal # alcohol abuse with withdrawal - Continue phenobarbital protocl - -Hydrate -folic, thiamine replacement #Elevated BP, probably undiagnosed HTN -start Norvasc #Unsteady gait likely related to alcoholism, PT recommends home improve DVT prophylaxis: Lovenox need for inapitent: ongoing treatment for alcohol withdrawal and unsteady gait that needs pt eval Quality Stroke Does the patient have a stroke diagnosis?: No VTE Prior VTE?: No VTE Risk Level:: Medical - moderate - high VTE Device Contraindication: Treatment Not Indicated VTE Drug Contraindication: N/A - Med Ordered
--- NOTE | 2022-10-07 13:07 | MHC.CM.PN ---
EMR REVIEWED PT NOT MEDICALLY CLEARED FOR DC TODAY PER MD, LAST CIWA SCORE 5. PER P.T., GAIT STILL UNSTEADY. CM WILL CONTINUE TO FOLLOW.
[2022-10-07 15:16] VITALS: BMI 19.3
[2022-10-07 15:34] VITALS: BP 122/82; PULSE 80; RESP 20; TEMP 36.8; O2SAT 97
[2022-10-07 19:33] VITALS: BP 137/81; PULSE 90; RESP 20; TEMP 37; O2SAT 99
[2022-10-07] MEDS: PHENobarbitaL 15 MG TABLET PO (20:17)
[2022-10-08] VITALS: BP 115/56; PULSE 78; RESP 17; TEMP 36.1
[2022-10-08] MEDS: Enoxaparin Sodium 40 MG/0.4 ML SYRINGE SUBCUT (03:14)
[2022-10-08 03:49] VITALS: BP 134/73; PULSE 86; RESP 18; TEMP 36.6; O2SAT 98
[2022-10-08] MEDS: PHENobarbitaL 15 MG TABLET PO (07:17)
[2022-10-08] MEDS: Thiamine HCL 100 MG TABLET PO (07:18)
[2022-10-08] MEDS: Folic Acid 1 MG TABLET PO (07:18)
[2022-10-08] MEDS: 0.9 % Sodium Chloride Flush 3 ML SYRINGE IVFLUSH (07:19)
[2022-10-08 08:00] VITALS: BP 123/83; PULSE 94; RESP 17; TEMP 36.9; O2SAT 97
--- NOTE | 2022-10-08 09:44 | PM.DS ---
DS: Providers Provider Date of Service: 10/08/22 Date of admission: 10/05/22 02:33 Primary care physician: None Physician DS: Diagnosis Discharge Diagnosis (1) Alcoholic intoxication: Status: Acute (2) Alcohol withdrawal syndrome: Status: Acute DS: Summary Hospital Course Hospital Course: Chief Complaint: Alcohol intoxication This is a 52-year-old male with past medical history of alcohol abuse presents to the hospital after bystander called when he found to be sleeping outdoors in the cold.? Patient reports that he was drunk, and fell sleep.? He reports no fall, no loss of consciousness, no weakness numbness or tingling in any of his extremities, no chest pain, no abdominal pain, no nausea or vomiting, no diarrhea constipation, no urinary symptoms and no lower extremity edema.? The patient is currently withdrawing, he is feeling a jittery, anxious, and feels that he is withdrawing from alcohol. On arrival to the ED patient hemodynamically stable with a temperature of 96.6 degrees, otherwise no abnormal vitals Labs are significant for WBC count 6.3, hemoglobin of 11.6, medical 35.9, AST of 94, alcohol level of 465, Cervical and head CT negative While in the ED patient's starts developing alcohol withdrawal with a CIWA score of 19. pt started on phenobabr and will be admitted for further management. Hospital course: Patient was admitted and treated for alcohol intoxication with impending withdrawal with phenobarbital and alcohol withdrawal has resolved. He has been very unsteady with his gait again related to alcohol use and PT has been working with him and he has made signficant improving and at this point ambulating in the [place] without any assited device. He has been evaluated by the CARE team and offer outpatient resource to remain sobber Time Spent with Patient Time attestation: Total time spent providing and/or coordinating discharge services: Discharge coordination time: Greater than 30 minutes Quality: Safe Use of Opioids Does Pt have an Active Cancer Diagnosis on the Problem List?: No Quality: Stroke Does the patient have a stroke diagnosis?: No Physical Exam Vital Signs: Vital Signs: Selected Entries 10/08/22 08:00 Temperature 98.5 F Pulse Rate 94 Respiratory Rate 17 Blood Pressure 123/83 Pulse Oximetry 97 Oxygen Delivery Me thod Room Air Const: Other: General: AO X 3, no acute distress Resp: CTA bilateral CVS: S1,S2,RRR GI: +BS, NT, no distention Skin: No rash Neuro: motor grossly intact Psych: appropriate affect Discharge Plan Discharge Anticipated Discharge Date/Time: 10/06/22 08:28 Patient Disposition: Home, Self-Care Discharge Diagnosis: Alcohol intoxication and withdrawal Referrals: [facility] [Provider Group] - 2 days Physician,None [Primary Care Provider] - 1 Week Awilda Robles [Registered Nurse] - 2 days Discharge Medications: Continued aspirin 81 mg Tablet,Chewable 81 mg PO DAILY PRN (Reason: Pain) Discharge Orders: Discharge Order (Routine); Ordered 10/06/22 Ordered By: Alfred Nguyen Diet: Advance to usual diet Activity on Discharge: As tolerated Stand Alone Forms: Patient Portal Discharge page, Work/School Release Activity Restrictions/Additional Instructions: Take your medications as prescribed. If you were prescribed antibiotics today, it is important that you take your medication to their entirety, do not skip any doses, do not finish them early. Follow-up with your primary care provider this week. Return to the emergency department with new or worsening symptoms. Such as fevers, chills, chest pain, shortness of breath, nausea, vomiting, dizziness, headache, vision changes, lethargy In case of emergency call 911 Care Plan Goals: To stay sober from alcohol Health Concerns: alcohol dependency Plan of Treatment: avoid alcohol and attend resources given to you Assessment: as above Patient Instructions: Alcohol Intoxication (ED)
[2022-10-08 12:00] VITALS: BP 131/75; PULSE 82; RESP 18; TEMP 37.6; O2SAT 97
== END 2022-10-08 14:27 | disposition home or self-care (01) | DRG 897 ==
LOC: HO.ED 10-05 02:32 → HO.EDOVER 10-05 02:40 → HO.IMC 10-05 04:55 → HO.S3 10-05 18:13
PROVIDERS: Nurse Practitioner Family; Admitting Provider Internal Medicine; Emergency Provider Emergency Medicine; Visit Provider Internal Medicine
DX: F10.239 Alcohol dependence with withdrawal, unspecified (principal); F10.229 Alcohol dependence with intoxication, unspecified; Y90.8 Blood alcohol level of 240 mg/100 ml or more; I10 Essential (primary) hypertension; Z79.82 Long term (current) use of aspirin; Z20.822 Contact with and (suspected) exposure to COVID-19; Z59.02 Unsheltered homelessness
CPT/HCPCS: 36415; 70450; 72125; 80048; 80053; 80307; 81003; 82077; 83735; 85025; 87635; 97162; 99285; J1650; J2560

== ENCOUNTER 2022-10-14 17:08 | Emergency (ER) | payer MEDICAID, SELFPAY ==
--- NOTE | ~2022-10-14 | CT_ITS ---
EXAMINATION: NONCONTRAST HEAD CT NONCONTRAST CERVICAL SPINE CT INDICATION INFORMATION: Fall COMPARISON: 10/04/2022 TECHNIQUE: Separate noncontrast CT examinations of the head and cervical spine were performed. Coronal and sagittal images were created for each examination at the technologist workstation. This CT examination was performed using dose optimization techniques as appropriate, variously including the following: *Automated exposure control *Adjustment of mA and/or kV according to patient size (this includes techniques or standardized protocols for targeted exams where dose is matched to indication/reason for exam; i.e. extremities or head) *Use of iterative reconstruction technique DLP: 918 mGy-cm FINDINGS: Head: There is no evidence of acute intracranial hemorrhage or territorial infarction. No abnormal mass effect or midline shift is seen. Weaver to white matter differentiation is well preserved. No extra-axial fluid collections are identified. No hydrocephalus. Proportional prominence of the ventricles and sulcal spaces is consistent with mild volume loss. Patchy periventricular and deep white matter hypoattenuation is consistent with mild small vessel ischemic changes. No acute osseous or soft tissue abnormality. The mastoid air cells and visualized portions of the paranasal sinuses are well aerated. Cervical spine: There is anatomic alignment of the vertebral bodies and posterior elements. The atlantoaxial and atlantooccipital articulations are intact. Vertebral body heights and intervertebral disc spaces are maintained. Mild uncovertebral arthrosis at C5-C6. No evidence of acute fracture. No prevertebral soft tissue swelling. Visualized portions of the lung apices are unremarkable. The thyroid gland is unremarkable. CT/CT cervical spine wo IV con IMPRESSION: * No acute intracranial bleed or territorial infarction. * No acute fractures of the calvarium or cervical spine.
--- NOTE | 2022-10-14 17:15 | ED_ITS ---
HPI - General Adult General Chief complaint: General Medical Stated complaint: etoh Time Seen by Provider: 10/14/22 17:09 Source: patient Mode of arrival: ambulatory Limitations: no limitations History of Present Illness HPI narrative: 52-year-old male history of alcohol withdrawal syndrome, alcohol abuse presentin g with acute alcohol intoxication, patient very intoxicated however alert and oriented x3, not answering my questions, minimally cooperative, per EMS he was found on the sidewalk lying down, police called for EMS assistance, they brought him in for further evaluation. Patient requesting another alcoholic beverage upon arrival, denies medical complaints. Appears well. Poor historian unable to really tell me a history, denying medical complaints however unreliable historian. Related Data Home Medications Medication Instructions Recorded Confirmed aspirin 81 mg chewable tablet 81 mg PO DAILY PRN Pain 10/05/22 10/05/22 Allergies Allergy/AdvReac Type Severity Reaction Status Date / Time No Known Allergies Allergy Unverified 07/30/20 15:15 [No Known Allergies*] Review of Systems Review of Systems: Yes Unobtainable due to mental status PMFSH Past Medical History Attestation statement: The following information was validated with the patient. Source: old records reviewed and nursing notes reviewed Medical History Alcohol abuse Surgical History No history of previous surgery Social History Social History Household Members: None Household Members Other:: pt homeless Housing: Other Do you presently have visiting nurse or other home services: No Alcohol intake: current Patient Tobacco Use Status: Former Tobacco user Second Hand Smoke Exposure: No Advance Directives: No Advance Directives Information Provided: No service: No Physical Exam ED Vital Signs: Vital Signs - 24 hr 10/14/22 17:20 Temperature 97.1 F Pulse Rate 92 Respiratory Rate 18 Blood Pressure 115/73 Pulse Oximetry 96 Oxygen Delivery Method Room Air BMI result Body Mass Index 25.0 vss Appearance: Alert.? Oriented X3.? No acute distress.? Patient smells like alcohol. Head: Normocephalic, atraumatic, no step-offs or deformities Eyes: Pupils equal, round and reactive to light.? Neck: Normal inspection.? Neck supple.? CVS: Normal heart rate and rhythm.? Pulses normal.? Respiratory: No respiratory distress.? Breath sounds normal.? Abdomen: Soft and nontender.? Skin: Skin warm and dry.? Normal skin color.? Normal skin turgor.? Extremities: No lower extremity edema.? No calf ttp. 5/5 strength to bilateral upper and lower extremities Neuro: Oriented X 3.? No motor deficit.? No sensory deficit. CN 2-12 intact . Patient answer questions appropriately, following commands. Ambulating with steady gait normal coordination. Course Reevaluation(s) Reevaluation #1: CBC appears to be around patient's baseline with a macrocytic anemia likely secondary to alcohol abuse. Platelet count chronically low. Chemistry with no acute electrolyte abnormalities requiring intervention. Patient's albumin noted to be low likely again secondary to alcohol abuse however no need for intervention at this time. Ethanol level 363, consistent with acute alcohol intoxication. Head CT with no acute findings, his cervical spine with no acute findings. Patient resting comfortably. Vital signs stable. At this time patient will be placed into physician observation at time observation was started patient common cooperative no acute distress. Will continue to monitor Time: 18:36 Medical Decision Making [facility] Narrative Medical decision making narrative: 1716 52 year old male presents w/ acute alcohol intoxication per EMS patient told PD that he had 5 beers and 1 pt of vodka, no medical complaints, requesting another alcoholic drink upon arrival. PE patient smells like alcohol, neuro non focal, no evidence of truama Likley alcohol intox due to patient being intoxicated and poor historian will obtain head and neck CT Unlikeky ICH, storke, posterior stroke, likley alcohol intox. Plan- labs, medical clearance, clinical sobriety Medical Records Medical records reviewed: Yes I reviewed the patient's medical records. Lab Data Lab results reviewed: Yes I reviewed the patient's lab results. Result diagrams: 10/14/22 17:52 10/14/22 17:52 Labs: Lab Results 10/14/22 10/14/22 Range/Units 17:52 17:52 WBC 5.2 (4.8-10.8) X10*3/uL RBC 2.70 L (4.60-5.80) X10*6/uL Hgb 9.3 L (14.0-18.0) g/dl Hct 29.2 L (42.0-52.0) % MCV 108.1 H (80.0-98.0) fL MCH 34.4 H (27.0-33.0) pg MCHC 31.8 (31.0-36.0) g/dl RDW 12.3 (11.0-16.0) % Plt Count 154 L D (160-400) X10*3/uL MPV 11.2 (9.4-12.4) fL Immature Gran % (Auto) 0.4 (0.0-0.4) % Neut % (Auto) 60.5 (45-73) % Lymph % (Auto) 22.9 (20-40) % [place] % (Auto) 14.0 H (2-11) % Eos % (Auto) 1.0 (0-4) % Baso % (Auto) 1.2 (0-2) % Lymph # (Auto) 1.2 (1.2-4.9) X10*3/uL [place] # (Auto) 0.7 (0.1-1.2) X10*3/uL Eos # (Auto) 0.1 (0.0-0.4) X10*3/uL Baso # (Auto) 0.1 (0.0-0.2) X10*3/uL Abs Immat Gran (auto) 0.02 (0.00-0.03) X10*3/uL Absolute Neuts (auto) 3.2 (2.0-8.3) x10*3/uL Absolute Nucleated RBC 0.000 (0.0-0.012) X10*3/uL Nucleated RBC % (auto) 0.0 (0.0-0.2) /100WBC Sodium 141 (135-145) mmol/L Potassium 4.1 (3.3-5.1) mmol/L Chloride 108 (96-108) mmol/L Carbon Dioxide 24 (22-29) mmol/L Anion Gap 13 (12-20) BUN 13 (9-16) mg/dL Creatinine 1.10 (0.5-1.4) mg/dL Estim Creat Clear Calc 70.0 Estimated GFR > 60 Random Glucose 116 H (60-115) mg/dL Calcium 8.5 (8.4-10.2) mg/dL Total Bilirubin 0.2 (0.0-1.0) mg/dL AST 50 H (5-37) U/L ALT 13 (0-40) U/L Alkaline Phosphatase 150 H (39-117) U/L Total Protein 7.3 (6.5-8.0) g/dL Albumin 3.3 L (3.5-5.0) g/dL Ethyl Alcohol 363 H* mg/dL Critical Care Time Critical Care Time Critical Care Time: No Discharge Plan Discharge Clinical Impression: Alcoholic intoxication Patient Disposition: Still a Patient Prescriptions: No Action aspirin 81 mg Tablet,Chewable 81 mg PO DAILY PRN (Reason: Pain)
[2022-10-14 17:20] VITALS: BP 115/73; PULSE 92; RESP 18; TEMP 36.2; O2SAT 96; BMI 25.0
[2022-10-14 17:57] LABS: Basophils Absolute Auto 0.1 X10*3/uL (0.0-0.2); Basophils Percent Auto 1.2 % (0-2); Eosinophils Absolute Auto 0.1 X10*3/uL (0.0-0.4); Hematocrit 29.2 % (42.0-52.0); Hemoglobin 9.3 g/dl (14.0-18.0); Imm Gran Abs Auto 0.02 X10*3/uL (0.00-0.03); Imm Gran Pct Auto 0.4 % (0.0-0.4); Lymphocytes Absolute Auto 1.2 X10*3/uL (1.2-4.9); Lymphocytes Percent Auto 22.9 % (20-40); MANUAL DIFF FLAG NO; Mean Corpuscular HGB Conc 31.8 g/dl (31.0-36.0); Mean Corpuscular Hemoglobin 34.4 pg (27.0-33.0); Mean Corpuscular Volume 108.1 fL (80.0-98.0); Mean Platelet Volume 11.2 fL (9.4-12.4); Monocytes Absolute Auto 0.7 X10*3/uL (0.1-1.2); Neutrophils Absolute Auto 3.2 x10*3/uL (2.0-8.3); Neutrophils Percent Auto 60.5 % (45-73); Platelet Count 154 X10*3/uL (160-400); Red Cell Distribution Width 12.3 % (11.0-16.0); White Blood Count 5.2 X10*3/uL (4.8-10.8)
[2022-10-14 18:26] LABS: Alanine Aminotransferase 13 U/L (0-40); Albumin Level 3.3 g/dL (3.5-5.0); Alkaline Phosphatase 150 U/L (39-117); Anion Gap 13 (12-20); Aspartate Amino Transferase 50 U/L (5-37); Bilirubin Total 0.2 mg/dL (0.0-1.0); Blood Urea Nitrogen 13 mg/dL (9-16); Calcium 8.5 mg/dL (8.4-10.2); Carbon Dioxide 24 mmol/L (22-29); Chloride 108 mmol/L (96-108); Estimated Glomerular Filt Rate > 60; Ethanol 363 mg/dL; Glucose Random 116 mg/dL (60-115); Potassium 4.1 mmol/L (3.3-5.1); Sodium 141 mmol/L (135-145); Total Protein 7.3 g/dL (6.5-8.0)
[2022-10-14 23:04] VITALS: BP 122/74; PULSE 91; RESP 18; TEMP 36.4; O2SAT 97
[2022-10-15 00:22] LABS: Amphetamine Screen Urine Not Detected (Not Detect); Barbiturates, Urine POSITIVE (Not Detect); Benzodiazepines Screen Urine Not Detected (Not Detect); Cannabinoid Screen Urine Not Detected (Not Detect); Cocaine Screen Urine Not Detected (Not Detect); Fentanyl, urine Not Detected (Not Detect); Opiate Screen Urine Not Detected (Not Detect); Phencyclidine Screen Urine Not Detected (Not Detect)
[2022-10-15 02:16] VITALS: BP 121/72; PULSE 84; RESP 18; TEMP 36.5; O2SAT 97
[2022-10-15 04:24] VITALS: RESP 18
[2022-10-15 06:49] VITALS: BP 155/85; PULSE 84; RESP 18; TEMP 36.8; O2SAT 97
== END 2022-10-15 07:12 | disposition home or self-care (01) ==
PROVIDERS: Physician Assistant; Emergency Provider Emergency Medicine Emergency Medical Services
DX: F10.129 Alcohol abuse with intoxication, unspecified (principal); Y90.8 Blood alcohol level of 240 mg/100 ml or more; R51.9 Headache, unspecified; M54.2 Cervicalgia; Z87.891 Personal history of nicotine dependence; Z79.899 Other long term (current) drug therapy
CPT/HCPCS: 36415; 70450; 72125; 80053; 80307; 82077; 85025; 99284

== ENCOUNTER 2022-10-24 17:31 | Emergency (ER) | payer MEDICAID, SELFPAY ==
--- NOTE | ~2022-10-24 | CT_ITS ---
EXAMINATION: CT HEAD WITHOUT CONTRAST CLINICAL INFORMATION: Fall COMPARISON: CT 10/14/2022 TECHNIQUE: Contiguous axial imaging was performed from the skull base to vertex without intravenous administration of contrast. This CT examination was performed using dose optimization techniques as appropriate, variously including the following: *Automated exposure control *Adjustment of mA and/or kV according to patient size (this includes techniques or standardized protocols for targeted exams where dose is matched to indication/reason for exam; i.e. extremities or head) *Use of iterative reconstruction technique DLP: 578 mGy-cm FINDINGS: There is no evidence of acute intracranial hemorrhage or edematous territorial infarction. No abnormal mass effect or midline shift is seen. Weaver to white matter differentiation is well preserved. No extra-axial fluid collections are identified. Commensurate prominence of the ventricles and sulci is compatible with generalized parenchymal volume loss. There is periventricular and subcortical white matter hypoattenuation, most likely representing microangiopathic disease. Bilateral basal ganglia mineralization. No acute calvarial fracture.. Paranasal sinuses and mastoid air cells are well-aerated. CT/CT head/brain wo IV con IMPRESSION: No CT evidence of acute intracranial hemorrhage or edematous territorial infarction..
[2022-10-24 17:52] VITALS: PULSE 78
[2022-10-24 17:55] VITALS: BMI 25.0
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
[2022-10-24 18:42] VITALS: BP 115/84; PULSE 84; RESP 16; TEMP 36.1; O2SAT 97
--- NOTE | 2022-10-24 21:20 | MHC.RECOVSUP ---
r consult:ETOH o? Current location:ED22[facility]? o? Identified substance use concern:? -? Support ? Intervention: ? Plan: o? Follow up tomorrow? ? Additional information:RC tried to speak with pt, pt had blanket up over his head and didn't acknowledge me. I walked by and said pt's name but again no response. Please follow up tomorrow.
--- NOTE | 2022-10-24 23:05 | PC.NURSE ---
pt resting quietly in stretcher at this time. pt repositioned to back
[2022-10-24 23:16] VITALS: BP 139/76; PULSE 74; RESP 18; TEMP 36.4; O2SAT 96
--- NOTE | 2022-10-25 00:46 | PC.NURSE ---
pt resting comfortably on feliciano stretcher. arrousable to rn
--- NOTE | 2022-10-25 01:10 | PC.NURSE ---
Addendum entered by Gissel Muhammad 10/25/22 01:11: pt informed of this plan, pt resting comfortably. agreeable to plan. no requests at this time Original Note: this rn discussed discharge plan with Dr. Bae. Pt is homeless and states would need to walk home. made aware. ok'd that pt stay until AM
--- NOTE | 2022-10-25 04:35 | PC.NURSE ---
pt sleeping comfortably on stretcher at this time. RR 14 non labored
== END 2022-10-25 06:10 | disposition home or self-care (01) ==
PROVIDERS: Emergency Provider Emergency Medicine
DX: F10.120 Alcohol abuse with intoxication, uncomplicated (principal); Y90.9 Presence of alcohol in blood, level not specified; Z59.02 Unsheltered homelessness; R51.9 Headache, unspecified; Z91.81 History of falling
CPT/HCPCS: 70450; 96372; 99284; 99285

== ENCOUNTER 2022-11-03 00:13 | Emergency (ER) | payer MEDICAID, SELFPAY ==
[2022-11-03 00:18] VITALS: BP 130/82; PULSE 90; O2SAT 98; BMI 25.0
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
[2022-11-03 04:00] VITALS: BP 121/75; PULSE 71; RESP 18; TEMP 36.1; O2SAT 95
[2022-11-03 05:49] VITALS: BP 127/76; PULSE 71; RESP 18; TEMP 36.7; O2SAT 96
--- NOTE | 2022-11-03 08:21 | PC.NURSE ---
Pt steady on feet, snacks and juice given. Speech clear, acting appropriate
== END 2022-11-03 08:23 | disposition home or self-care (01) ==
PROVIDERS: Emergency Provider Internal Medicine
DX: F10.220 Alcohol dependence with intoxication, uncomplicated (principal); Y90.9 Presence of alcohol in blood, level not specified; Z59.02 Unsheltered homelessness; Z79.82 Long term (current) use of aspirin
CPT/HCPCS: 99282; 99284

== ENCOUNTER 2023-01-19 17:03 | Emergency (ER) | payer MEDICAID, SELFPAY ==
[2023-01-19 17:20] VITALS: BP 128/64; PULSE 94; RESP 18; TEMP 36.7; O2SAT 95
[2023-01-19 17:37] VITALS: BP 128/66; PULSE 94; O2SAT 94; BMI 23.3
--- NOTE | 2023-01-19 17:45 | ED_ITS ---
HPI - Psych General Chief Complaint: ETOH/Substance Use Stated Complaint: ETOH USE,COULDNT GET UP LEGS WEAK Time Seen by Provider: 01/19/23 17:25 Related Data Home Medications Medication Instructions Recorded Confirmed aspirin 81 mg chewable tablet 81 mg PO DAILY PRN Pain 10/05/22 10/05/22 Allergies Allergy/AdvReac Type Severity Reaction Status Date / Time No Known Allergies Allergy Unverified 07/30/20 15:15 [No Known Allergies*] [facility] Past Medical History Medical History Alcohol abuse Surgical History No history of previous surgery Social History Social History Household Members: None Household Members Other:: pt homeless Housing: Other Do you presently have visiting nurse or other home services: No Alcohol intake: current Alcohol type: beer Patient Tobacco Use Status: Former Tobacco user Second Hand Smoke Exposure: No service: No Physical Exam Vital Signs: Vital Signs: BMI result Body Mass Index 23.3 Medical Decision Making Medical Decision Making MDM Narrative: Patient ambulatory in the ER refused to stay longer wanted to go home start walking outside the Ed in a steady gait Discharge Plan Discharge Clinical Impression: Alcoholic intoxication Patient Disposition: Home, Self-Care Instructions: Abuse of Alcohol (ED) Additional Instructions: Follow-up with detox Stop drinking alcohol Prescriptions: No Action aspirin 81 mg Tablet,Chewable 81 mg PO DAILY PRN (Reason: Pain)
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
== END 2023-01-19 18:00 | disposition home or self-care (01) ==
PROVIDERS: Emergency Provider Internal Medicine
DX: F10.129 Alcohol abuse with intoxication, unspecified (principal); Y90.9 Presence of alcohol in blood, level not specified
CPT/HCPCS: 99283

== ENCOUNTER 2023-02-25 20:57 | Emergency (ER) | payer MEDICAID, SELFPAY ==
[2023-02-25 21:05] VITALS: BP 136/86; PULSE 90; RESP 18; TEMP 36.4; O2SAT 94
[2023-02-25 21:21] VITALS: BP 116/59; BP 118/58; PULSE 79; PULSE 82; RESP 14; O2SAT 95; O2SAT 96; BMI 19.3
--- NOTE | 2023-02-25 21:22 | ED_ITS ---
HPI - General Adult General Chief complaint: ETOH/Substance Use <MADISON Tay - Last Filed: 02/26/23 00:30> Stated complaint: ETOH <MADISON Tay - Last Filed: 02/26/23 00:30> Time Seen by Provider: 02/25/23 21:22 <MADISON Tay - Last Filed: 02/26/23 00:30> Source: patient and EMS <MADISON Tay Last Filed: 02/26/23 00:30> Mode of arrival: EMS <MADISON Tay Last Filed: 02/26/23 00:30> Limitations: no limitations <MADISON Tay Last Filed: 02/26/23 00:30> History of Present Illness HPI narrative: Patient is a 53 year old assigned male at with a history of alcohol abuse presenting to the emergency department today after being found sleeping outside of a liquor store. EMS states that the patient was drinking and fell asleep outside of liquor store so they were required to bring him here. Patient denies any complaints at this time and admits to drinking alcohol. Patient denies any dizziness, lightheadedness, abdominal pain, nausea, vomiting, fever, chills, blurry vision, double vision, loss of vision, chest pain, difficulty breathing, shortness of breath, back pain, night sweats, pain with urination, increased urinary frequency, increased urinary urgency, blood in his urine or stool, syncope or a near syncopal episode, bowel incontinence, bladder incontinence, bowel retention, bladder retention, or any other complaints at this time. <MADISON Tya - Last Filed: 02/26/23 00:30> Relieving factors: none <MADISON Tay - Last Filed: 02/26/23 00:30> Exacerbating factors: none <MADISON Tay Last Filed: 02/26/23 00:30> Associated symptoms: denies other symptoms <MADISON Tay Last Filed: 02/26/23 00:30> Treatments prior to arrival: none <MADISON Tay Last Filed: 02/26/23 00:30> Related Data Home medications: Home Medications Medication Instructions Recorded Confirmed aspirin 81 mg chewable tablet 81 mg PO DAILY PRN Pain 10/05/22 10/05/22 <MADISON Tay Last Filed: 02/26/23 00:30> Allergies/adverse reactions: Allergies Allergy/AdvReac Type Severity Reaction Status Date / Time No Known Allergies Allergy Unverified 07/30/20 15:15 [No Known Allergies*] <MADISON Tay Last Filed: 02/26/23 00:30> Review of Systems Constitutional: Constitutional: Reports no additional constitutional complaints, Denies chills, Denies fever(s) and Denies night sweats <MADISON Tay Last Filed: 02/26/23 00:30> Eyes: Eyes: Reports no additional eye complaints, Denies blurry vision, Denies change in vision, Denies diplopia, Denies eye discharge, Denies loss of vision and Denies eye pain <MADISON Tay Last Filed: 02/26/23 00:30> ENT: Denies dizziness <MADISON Tay Last Filed: 02/26/23 00:30> Cardiovascular: Cardiovascular: Reports no additional cardiovascular complaints, Denies chest pain, Denies lightheadedness, Denies Loss of Consciousness and Denies dyspnea <MADISON Tay Last Filed: 02/26/23 00:30> Respiratory: Respiratory: Reports no additional respiratory complaints and Denies dyspnea <MADISON Tay Last Filed: 02/26/23 00:30> Gastrointestinal: Gastrointestinal: Reports no additional gastrointestinal complaints, Denies abdominal pain, Denies melena, Denies hematochezia, Denies change in bowel habits and Denies change in stool character <MADISON Tay Last Filed: 02/26/23 00:30> Genitourinary: Genitourinary: Reports no additional male genitourinary complaints, Denies hematuria, Denies oliguria, Denies difficulty urinating, Denies dysuria, Denies urinary frequency, Denies urinary hesitancy, Denies urinary incontinence and Denies urinary urgency <MADISON Tay Last Filed: 02/26/23 00:30> Musculoskeletal: Musculoskeletal: Reports no additional musculoskeletal complaints, Denies numbness and Denies tingling <MADISON Tay Last Filed: 02/26/23 00:30> Neurologic: Denies dizziness, Denies loss of vision, Denies numbness and Denies tingling <MADISON Tay - Last Filed: 02/26/23 00:30> Psychiatric: Psychiatric: Reports no additional psychiatric complaints <MADISON Tay - Last Filed: 02/26/23 00:30> Endocrine: Endocrine: Reports no additional endocrine complaints <MADISON Tay - Last Filed: 02/26/23 00:30> Hematologic/Lymphatic: Hematologic/Lymphatic: Reports no additional hematologic/lymphatic complaints <MADISON Tay - Last Filed: 02/26/23 00:30> Allergic/Immunologic: Allergic/Immunologic: Reports no additional allergic/immunologic complaints <MADISON Tay - Last Filed: 02/26/23 00:30> [facility] Past Medical History Attestation statement: The following information was validated with the patient. <MADISON Tay - Last Filed: 02/26/23 00:30> Source: old records reviewed and nursing notes reviewed <MADISON Tay - Last Filed: 02/26/23 00:30> Medical History: Medical History Alcohol abuse <MADISON Tay - Last Filed: 02/26/23 00:30> Surgical History: Surgical History No history of previous surgery <MADISON Tay - Last Filed: 02/26/23 00:30> Social History Social History: Social History Household Members: None Household Members Other:: pt homeless Housing: Other Do you presently have visiting nurse or other home services: No Alcohol intake: current Alcohol intake frequency: 3 or more drinks per day Alcohol type: beer and hard liquor Patient Tobacco Use Status: Former Tobacco user Smoked in Last 30 Days: No Second Hand Smoke Exposure: No Use of substances other than those prescribed or required for medical reasons: No Advance Directives: No Advance Directives Information Provided: No service: No <MADISON Tay - Last Filed: 02/26/23 00:30> Physical Exam ED Vital Signs: Vital Signs - 24 hr 02/25/23 21:05 02/25/23 21:21 02/25/23 22:57 Temperature 97.6 F Pulse Rate 90 79 Respiratory Rate 18 14 16 Blood Pressure 136/86 116/59 L Pulse Oximetry 94 96 Oxygen Delivery Method Room Air Room Air 02/26/23 01:35 02/26/23 03:23 02/26/23 06:02 Temperature 97.9 F Pulse Rate 84 Respiratory Rate 16 18 15 Blood Pressure 95/52 L Pulse Oximetry 94 Oxygen Delivery Method Room Air BMI result Body Mass Index 19.3 <MADISON Tay Last Filed: 02/26/23 00:30> Vital Signs - 24 hr 02/25/23 21:05 02/25/23 21:21 02/25/23 22:57 Temperature 97.6 F Pulse Rate 90 79 Respiratory Rate 18 14 16 Blood Pressure 136/86 116/59 L Pulse Oximetry 94 96 Oxygen Delivery Method Room Air Room Air 02/26/23 01:35 02/26/23 03:23 02/26/23 06:02 Temperature 97.9 F Pulse Rate 84 Respiratory Rate 16 18 15 Blood Pressure 95/52 L Pulse Oximetry 94 Oxygen Delivery Method Room Air BMI result Body Mass Index 19.3 <Boyd Romero MD - Last Filed: 02/26/23 06:23> Const General: cooperative, no acute distress, alert and awake <MADISON Tay Last Filed: 02/26/23 00:30> Nutritional Appearance: well nourished <MADISON Tay Last Filed: 02/26/23 00:30> Orientation/consciousness: patient oriented x3 <MADISON Tay Last Filed: 02/26/23 00:30> Limitations: no limitations <MADISON Tay Last Filed: 02/26/23 00:30> HENMT Head: Yes normal to inspection and Yes atraumatic <MADISON Tay Last Filed: 02/26/23 00:30> Ears: hearing grossly normal bilaterally and external ears normal <MADISON Tay Last Filed: 02/26/23 00:30> General nose exam: Normal external nose present, no nasal discharge noted and no epistaxis <MADISON Tay Last Filed: 02/26/23 00:30> Face and sinus: Yes normal facial exam, No abrasion and No laceration <MADISON Tay - Last Filed: 02/26/23 00:30> Mouth: Normal oral and palatal mucosa present, no drooling and no muffled voice <MADISON Tay - Last Filed: 02/26/23 00:30> Eyes General: appearance normal, both eyes and all related structures <MADISON Tay - Last Filed: 02/26/23 00:30> Periorbital: periorbital findings normal <MADISON Tay - Last Filed: 02/26/23 00:30> Eyelids: Yes eyelids normal <MADISON Tay - Last Filed: 02/26/23 00:30> Conjunctivae: conjunctivae normal <MADISON Tay - Last Filed: 02/26/23 00:30> Pupils: Equal, round and reactive pupils present <MADISON Tay Last Filed: 02/26/23 00:30> EOM: EOMs intact bilaterally <MADISON Tay - Last Filed: 02/26/23 00:30> Neck Neck: Yes normal visual inspection, Yes full ROM and Yes no lymphadenopathy <MADISON Tay - Last Filed: 02/26/23 00:30> Chest Chest palpation & inspection: normal inspection of the chest <MADISON Tay - Last Filed: 02/26 00:30> Resp Effort & Inspection: normal respiratory effort and able to speak in complete sentences <MADISON Ash - Last Filed: 02/26/23 00:30> Auscultation: clear to auscultation bilaterally <MADISON Tay - Last Filed: 02/26/23 00:30> Cardio Rate: regular rate <MADISON Tay - Last Filed: 02/26/23 00:30> Rhythm: regular rhythm <MADISON Tay - Last Filed: 02/26/23 00:30> GI Inspection: Yes normal to inspection <MADISON Tay - Last Filed: 02/26/23 00:30> Neuro General: patient oriented x3 and moves all extremities <MADISON Tay - Last Filed: 02/26/23 00:30> Cranial nerves: Yes Equal, round and reactive pupils present <Abril DelgadoMADISON kent - Last Filed: 02/26/23 00:30> Cognition (Neuro): normal cognition <Abril DelgadoMADISON kent - Last Filed: 02/26/23 00:30> Motor exam (neuro): 5/5 motor strength present throughout <Abril DlegadoMADISON kent - Last Filed: 02/26/23 00:30> Sensory Exam: Normal double simultaneous stimulation for sensation <Abriljames DelgadoMADISON kent - Last Filed: 02/26/23 00:30> Coordination: [id number] test normal <Abril DelgadoMADISON kent - Last Filed: 02/26/23 00:30> Extrem General: Yes normal to inspection, Yes full ROM and Yes capillary refill normal <Abril DelgadoMADISON kent - Last Filed: 02/26/23 00:30> Psych Appearance: grossly normal <Abril DelgadoMADISON kent - Last Filed: 02/26/23 00:30> Mental Status: mental status grossly normal <MADISON Tay - Last Filed: 02/26/23 00:30> Affect: normal affect <Abriljames DelgadoMADISON kent - Last Filed: 02/26/23 00:30> Attitude: cooperative <MADISON Tay - Last Filed: 02/26/23 00:30> Thought process: Normal thought process present <Abril MADISON Sam - Last Filed: 00:30> Thought content: Normal thought content present <MADISON Tay - Last Filed: 02/26/23 00:30> Insight: Good insight present (Psych) <MADISON Tay - Last Filed: 02/26/23 00:30> Medical Decision Making Medical Decision Making MDM Narrative: Patient is a 53 year old assigned male at with a history of alcohol abuse presenting to the emergency department today with acute intoxication. Patient's physical exam showed an obviously intoxicated male but was otherwise unremarkable. Patient's blood work showed an elevated blood alcohol level but was otherwise unremarkable. I explained my physical exam findings as well as all test results to the patient. I answered all questions asked by the patient. Patient remains in the emergency deparmtent until the patient is clinically sober and can be released to a sober ride. <MADISON Tay - Last Filed: 02/26/23 00:30> Patient is a 53 year old assigned male at with a history of alcohol abuse presenting to the emergency department today with acute intoxication. Patient's physical exam showed an obviously intoxicated male but was otherwise unremarkable. Patient's blood work showed an elevated blood alcohol level but was otherwise unremarkable. I explained my physical exam findings as well as all test results to the patient. I answered all questions asked by the patient. Patient remains in the emergency deparmtent until the patient is clinically sober and can be released to a sober ride. 0622: Start physician observation: The patient's care was turned over to me at 02:00 hours. The patient is still acutely intoxicated the patient will need more time in the emergency department until he is sober enough to be discharged. Therefore, the patient will be placed in physician observation. <Boyd Romero MD - Last Filed: 02/26/23 06:23> Differential Diagnosis Differential Diagnoses: The differential diagnosis associated with the presentation includes <MADISON Tay - Last Filed: 02/26/23 00:30> alcohol intoxication <MADISON Tay - Last Filed: 02/26/23 00:30> Lab Data MDM Lab Attestation statement: I reviewed the patient's lab results. <MADISON Tay - Last Filed: 02/26/23 00:30> Result Diagrams: 02/25/23 21:32 02/25/23 21:32 <MADISON Tay - Last Filed: 02/26/23 00:30> Labs: Lab Results 02/25/23 02/25/23 Range/Units 21:32 21:32 WBC 4.6 L (4.8-10.8) X10*3/uL RBC 3.46 L D (4.60-5.80) X10*6/uL Hgb 11.5 L D (14.0-18.0) g/dl Hct 34.6 L (42.0-52.0) % MCV 100.0 H (80.0-98.0) fL MCH 33.2 H (27.0-33.0) pg MCHC 33.2 (31.0-36.0) g/dl RDW 14.0 (11.0-16.0) % Plt Count 60 L D (160-400) X10*3/uL MPV 12.2 (9.4-12.4) fL Immature Gran % (Auto) 0.4 (0.0-0.4) % Neut % (Auto) 65.3 (45-73) % Lymph % (Auto) 18.8 L (20-40) % Canadian % (Auto) 13.8 H (2-11) % Eos % (Auto) 0.4 (0-4) % Baso % (Auto) 1.3 (0-2) % Lymph # (Auto) 0.9 L (1.2-4.9) X10*3/uL Canadian # (Auto) 0.6 (0.1-1.2) X10*3/uL Eos # (Auto) 0.0 (0.0-0.4) X10*3/uL Baso # (Auto) 0.1 (0.0-0.2) X10*3/uL Abs Immat Gran (auto) 0.02 (0.00-0.03) X10*3/uL Absolute Neuts (auto) 3.0 (2.0-8.3) x10*3/uL Absolute Nucleated RBC 0.000 (0.0-0.012) X10*3/uL Nucleated RBC % (auto) 0.0 (0.0-0.2) /100WBC Sodium 140 (135-145) mmol/L Potassium 3.7 (3.3-5.1) mmol/L Chloride 106 (96-108) mmol/L Carbon Dioxide 19 L (22-29) mmol/L Anion Gap 19 (12-20) BUN 27 H (9-16) mg/dL Creatinine 1.31 (0.5-1.4) mg/dL Estim Creat Clear Calc 49.6 Estimated GFR 57 Random Glucose 128 H (60-115) mg/dL Calcium 9.1 D (8.4-10.2) mg/dL Total Bilirubin 0.9 (0.0-1.0) mg/dL AST 143 H (5-37) U/L ALT 28 (0-40) U/L Alkaline Phosphatase 194 H (39-117) U/L Total Protein 8.6 H (6.5-8.0) g/dL Albumin 3.9 (3.5-5.0) g/dL Salicylates < 5.0 L (15-30) mg/dL Acetaminophen < 17 (<30) mcg/mL Ethyl Alcohol 535 H* mg/dL <MADISON Tay - Last Filed: 02/26/23 00:30> Lab Results 02/25/23 02/25/23 Range/Units 21:32 21:32 WBC 4.6 L (4.8-10.8) X10*3/uL RBC 3.46 L D (4.60-5.80) X10*6/uL Hgb 11.5 L D (14.0-18.0) g/dl Hct 34.6 L (42.0-52.0) % MCV 100.0 H (80.0-98.0) fL MCH 33.2 H (27.0-33.0) pg MCHC 33.2 (31.0-36.0) g/dl RDW 14.0 (11.0-16.0) % Plt Count 60 L D (160-400) X10*3/uL MPV 12.2 (9.4-12.4) fL Immature Gran % (Auto) 0.4 (0.0-0.4) % Neut % (Auto) 65.3 (45-73) % Lymph % (Auto) 18.8 L (20-40) % Canadian % (Auto) 13.8 H (2-11) % Eos % (Auto) 0.4 (0-4) % Baso % (Auto) 1.3 (0-2) % Lymph # (Auto) 0.9 L (1.2-4.9) X10*3/uL Canadian # (Auto) 0.6 (0.1-1.2) X10*3/uL Eos # (Auto) 0.0 (0.0-0.4) X10*3/uL Baso # (Auto) 0.1 (0.0-0.2) X10*3/uL Abs Immat Gran (auto) 0.02 (0.00-0.03) X10*3/uL Absolute Neuts (auto) 3.0 (2.0-8.3) x10*3/uL Absolute Nucleated RBC 0.000 (0.0-0.012) X10*3/uL Nucleated RBC % (auto) 0.0 (0.0-0.2) /100WBC Sodium 140 (135-145) mmol/L Potassium 3.7 (3.3-5.1) mmol/L Chloride 106 (96-108) mmol/L Carbon Dioxide 19 L (22-29) mmol/L Anion Gap 19 (12-20) BUN 27 H (9-16) mg/dL Creatinine 1.31 (0.5-1.4) mg/dL Estim Creat Clear Calc 49.6 Estimated GFR 57 Random Glucose 128 H (60-115) mg/dL Calcium 9.1 D (8.4-10.2) mg/dL Total Bilirubin 0.9 (0.0-1.0) mg/dL AST 143 H (5-37) U/L ALT 28 (0-40) U/L Alkaline Phosphatase 194 H (39-117) U/L Total Protein 8.6 H (6.5-8.0) g/dL Albumin 3.9 (3.5-5.0) g/dL Salicylates < 5.0 L (15-30) mg/dL Acetaminophen < 17 (<30) mcg/mL Ethyl Alcohol 535 H* mg/dL <Boyd Romero MD - Last Filed: 02/26/23 06:23> Independent Historian Clinical information obtained from an independent historian. History obtained from or confirmed by: EMS <MADISON Tay - Last Filed: 02/26/23 00:30> Discharge Plan Discharge Clinical Impression: Alcoholic intoxication <MADISON Tay - Last Filed: 02/26/23 00:30> Patient Disposition: Still a Patient <MADISON Tay - Last Filed: 02/26/23 00:30> Prescriptions: No Action aspirin 81 mg Tablet,Chewable 81 mg PO DAILY PRN (Reason: Pain) <MADISON Tay - Last Filed: 02/26/23 00:30>
--- NOTE | 2023-02-25 21:31 | PC.NURSE ---
pt aox3 slurred speech no apparent distress calm/cooperative resting quietly denies pain, sob, n/v, tremors, hallucinations, anxiety
[2023-02-25 21:36] LABS: MANUAL DIFF FLAG NO
[2023-02-25 21:37] LABS: Basophils Absolute Auto 0.1 X10*3/uL (0.0-0.2); Basophils Percent Auto 1.3 % (0-2); Eosinophils Percent Auto 0.4 % (0-4); Hematocrit 34.6 % (42.0-52.0); Hemoglobin 11.5 g/dl (14.0-18.0); Imm Gran Abs Auto 0.02 X10*3/uL (0.00-0.03); Imm Gran Pct Auto 0.4 % (0.0-0.4); Lymphocytes Absolute Auto 0.9 X10*3/uL (1.2-4.9); Lymphocytes Percent Auto 18.8 % (20-40); Mean Corpuscular HGB Conc 33.2 g/dl (31.0-36.0); Mean Corpuscular Hemoglobin 33.2 pg (27.0-33.0); Mean Platelet Volume 12.2 fL (9.4-12.4); Monocytes Absolute Auto 0.6 X10*3/uL (0.1-1.2); Monocytes Percent Auto 13.8 % (2-11); Neutrophils Percent Auto 65.3 % (45-73); Red Blood Count 3.46 X10*6/uL (4.60-5.80); White Blood Count 4.6 X10*3/uL (4.8-10.8)
[2023-02-25 22:02] LABS: Acetaminophen LAB < 17 mcg/mL (<30); Alanine Aminotransferase 28 U/L (0-40); Albumin Level 3.9 g/dL (3.5-5.0); Alkaline Phosphatase 194 U/L (39-117); Anion Gap 19 (12-20); Aspartate Amino Transferase 143 U/L (5-37); Bilirubin Total 0.9 mg/dL (0.0-1.0); Blood Urea Nitrogen 27 mg/dL (9-16); Calcium 9.1 mg/dL (8.4-10.2); Carbon Dioxide 19 mmol/L (22-29); Chloride 106 mmol/L (96-108); Creatinine Clr Calc Pharmacy 49.6; Estimated Glomerular Filt Rate 57; Ethanol 535 mg/dL; Glucose Random 128 mg/dL (60-115); Platelet Count 60 X10*3/uL (160-400); Potassium 3.7 mmol/L (3.3-5.1); Salicylate < 5.0 mg/dL (15-30); Sodium 140 mmol/L (135-145); Total Protein 8.6 g/dL (6.5-8.0)
[2023-02-25 22:57] VITALS: RESP 16
--- NOTE | 2023-02-25 23:02 | PC.NURSE ---
pt asleep respirations even and unlabored no apparent distress
--- NOTE | 2023-02-26 00:32 | PC.NURSE ---
pt assisted to restroom by OWEN Severino (standby assist)
[2023-02-26 01:35] VITALS: RESP 16
--- NOTE | 2023-02-26 01:46 | PC.NURSE ---
pt sleeping no apparent distress respirations even and unlabored
[2023-02-26 03:23] VITALS: RESP 18
[2023-02-26 06:02] VITALS: BP 95/52; PULSE 84; RESP 15; TEMP 36.6; O2SAT 94
--- NOTE | 2023-02-26 07:25 | PC.NURSE ---
Pt sleeping on stretcher, respirations even and unlabored. Plan for discharge when sober
== END 2023-02-26 08:36 | disposition home or self-care (01) ==
PROVIDERS: Physician Assistant Medical; Emergency Provider Emergency Medicine Emergency Medical Services
DX: F10.220 Alcohol dependence with intoxication, uncomplicated (principal); Y90.8 Blood alcohol level of 240 mg/100 ml or more; Z79.82 Long term (current) use of aspirin
CPT/HCPCS: 36415; 80053; 80143; 80179; 82077; 85025; 99284; 99285

== ENCOUNTER 2023-04-05 23:15 | Emergency (ER) | payer MEDICAID, SELFPAY ==
[2023-04-05 23:19] VITALS: BP 142/84; PULSE 109; RESP 18; TEMP 36.1; O2SAT 95; BMI 23.5
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
--- NOTE | 2023-04-06 00:44 | PC.NURSE ---
Pt arrived wheeled in a wheelchair by hospital security. Pt is intoxicated and states I just want to sleep . Pt assisted to the bedside and allowed to rest. Will re-evaluate when pt is more calm and cooperative. aware.
--- NOTE | 2023-04-06 05:09 | PC.NURSE ---
Pt sleeping/resting at the bedside in no apparent distress. Breaths are even regular and unlabored. Pulled out a bottle of vodka which was then given to security and pt returned to sleep, calm and cooperative. Denies SI/HI at this time. Will continue to monitor.
[2023-04-06 06:01] VITALS: BP 91/54; PULSE 90; RESP 16; O2SAT 92
[2023-04-06 08:38] VITALS: BP 95/59; PULSE 85; RESP 16; TEMP 36.4; O2SAT 96
--- NOTE | 2023-04-06 08:40 | PC.NURSE ---
patient ambulated to the bathroom with steady gait- asking for discharge paperwork. ED provider made aware
--- NOTE | 2023-04-06 10:22 | PC.NURSE ---
patient given clean clothes and showered before discharge
== END 2023-04-06 10:22 | disposition home or self-care (01) ==
PROVIDERS: Emergency Provider Internal Medicine
DX: F10.220 Alcohol dependence with intoxication, uncomplicated (principal); Y90.9 Presence of alcohol in blood, level not specified; Z79.82 Long term (current) use of aspirin
CPT/HCPCS: 99284

== ENCOUNTER 2023-05-12 23:42 | Emergency (ER) | payer MEDICAID, SELFPAY ==
[2023-05-12 23:59] VITALS: BP 103/51; PULSE 88; RESP 17; TEMP 36.6; O2SAT 93; BMI 23.0
--- NOTE | 2023-05-13 00:19 | PC.NURSE ---
Pt changed over to hospital attire
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
[2023-05-13 02:14] VITALS: RESP 18
[2023-05-13 06:17] VITALS: BP 90/50; PULSE 84; RESP 17; TEMP 36.7; O2SAT 97
[2023-05-13 08:27] VITALS: BP 99/66; PULSE 88; RESP 20; TEMP 37; O2SAT 92
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
[2023-05-13] MEDS: LORazepam 1 MG TABLET PO (09:19)
--- NOTE | 2023-05-13 09:29 | PC.NURSE ---
pt aox4. pt is asking for discharge instructions. Pt is tremulous and was medicated per MAR with PO ativan. Pt denies CLAYTON, nausea, anxiety, auditory or visual hallucinations. Pt ate breakfast try and reports feeling better.
== END 2023-05-13 10:50 | disposition home or self-care (01) ==
PROVIDERS: Emergency Provider Student in an Organized Health Care Education/Training Program
DX: F10.220 Alcohol dependence with intoxication, uncomplicated (principal); Y90.9 Presence of alcohol in blood, level not specified; R25.1 Tremor, unspecified; Z79.82 Long term (current) use of aspirin; Z87.891 Personal history of nicotine dependence
CPT/HCPCS: 99284

== ENCOUNTER 2023-05-17 07:07 | Emergency (ER) | payer MEDICAID, SELFPAY ==
--- NOTE | 2023-05-17 07:09 | ED.ALCOHOL ---
HPI - Alcohol General Chief Complaint: ETOH/Substance Use Stated Complaint: ETOH use Time Seen by Provider: 05/17/23 07:08 Source: EMS Mode of arrival: EMS Limitations: other (intoxication) History of Present Illness HPI narrative: Found sleeping near the liquor store complaint: alcohol intoxication Related Data Home Medications Medication Instructions Recorded Confirmed aspirin 81 mg chewable tablet 81 mg PO DAILY PRN Pain 10/05/22 10/05/22 Allergies Allergy/AdvReac Type Severity Reaction Status Date / Time No Known Allergies Allergy Verified 05/12/23 23:59 [No Known Allergies*] Review of Systems Review of Systems: Yes Unobtainable due to mental status PMFSH Past Medical History Medical History Alcohol abuse Surgical History No history of previous surgery Social History Social History Household Members: None Household Members Other:: pt homeless Housing: Other Do you presently have visiting nurse or other home services: No Alcohol intake: current Alcohol intake frequency: 3 or more drinks per day Alcohol type: beer and hard liquor Patient Tobacco Use Status: Former Tobacco user Smoked in Last 30 Days: No Second Hand Smoke Exposure: No Use of substances other than those prescribed or required for medical reasons: No Advance Directives: No Advance Directives Information Provided: Yes service: No Physical Exam ED Vital Signs: Vital Signs - 24 hr 05/17/23 07:14 05/17/23 07:18 05/17/23 10:11 Temperature 97.4 F Pulse Rate 85 56 Respiratory Rate 18 18 Blood Pressure 103/65 90/48 L Pulse Oximetry 90 L 98 97 Oxygen Delivery Method Room Air Room Air Room Air 05/17/23 11:45 Temperature Pulse Rate 93 Respiratory Rate 18 Blood Pressure 92/59 L Pulse Oximetry 98 Oxygen Delivery Method Room Air BMI result Body Mass Index 17.2 Const Other: unkept, intoxicated Nutritional Appearance: average body habitus Orientation/consciousness: oriented to person Limitations: no limitations HENMT Head: Yes normal to inspection Ears: external ears normal General nose exam: Normal external nose present Mouth: Normal oral and palatal mucosa present and oropharynx normal Throat: Yes posterior oropharynx normal Eyes General: appearance normal, both eyes and all related structures Neck Neck: Yes normal visual inspection Chest Chest palpation & inspection: normal inspection of the chest Resp Auscultation: clear to auscultation bilaterally Cardio Jugular venous distension: no JVD Rate: regular rate Rhythm: regular rhythm Heart sounds: S1 normal heart sound present and S2 normal heart sound present GI Inspection: Yes normal to inspection Palpation (GI): Soft to palpation, nontender and No hepatosplenomegaly present Auscultation: normal bowel sounds General: Yes no CVA tenderness Back/Spine/Pelvis Back: no CVA tenderness Skin General skin exam: no rashes or lesions noted Neuro General: oriented to person Cranial nerves: Yes CN's II-XII intact bilaterally Motor exam (neuro): 5/5 motor strength present throughout Extrem General: Yes normal to inspection Psych Appearance: grossly normal Course Reevaluation(s) Reevaluation #1: patient ambulated well and is at baseline will dc home Time: 13:05 Medical Decision Making Differential Diagnosis Differential Diagnoses: The differential diagnosis associated with the presentation includes (alcohol intoxication) Tests considered The following testing was considered but not selected: I considered obtaining labs and utox but patient is known well to us and is here multiple times a week Chronic Conditions Patient?s care impacted by: Other (alcoholism) Social Determinants Patient?s care significantly limited by Social Determinants of Health including: Inadequate housing, Low income and Alcoholism and drug addiction in family Discharge Plan Discharge Clinical Impression: Alcoholic intoxication Patient Disposition: Home, Self-Care Instructions: Alcohol Intoxication (ED) Prescriptions: No Action aspirin 81 mg Tablet,Chewable 81 mg PO DAILY PRN (Reason: Pain) Referrals: Physician,Unknown J [Primary Care Provider] - 1 week
[2023-05-17 07:14] VITALS: BP 101/70; BP 103/65; PULSE 85; PULSE 88; RESP 18; TEMP 36.3; O2SAT 90; O2SAT 96; BMI 17.2
[2023-05-17 07:18] VITALS: O2SAT 98
--- NOTE | 2023-05-17 07:21 | PC.NURSE ---
Patient brought in by EMS after being found sleeping in front of [place] [address] Patient alert stating that he has not had anything to drink this morning and that he was just trying to sleeping. Denies pain or discomfort, sob, or chest pain. States he is still drunk fro last night and that he is fine. Patient incontinent of urine, declining to allow staff to assist with changing out of wet pants. Provided with food and fluids.
--- NOTE | 2023-05-17 07:39 | PC.NURSE ---
changed over into hospital attire. Security locked belongings in Pod.
[2023-05-17 10:11] VITALS: BP 90/48; PULSE 56; RESP 18; O2SAT 97
--- NOTE | 2023-05-17 10:15 | PC.NURSE ---
Alert, sitting up in bed drinking fluids. Provider aware of BP.
[2023-05-17 11:45] VITALS: BP 92/59; PULSE 93; RESP 18; O2SAT 98
--- NOTE | 2023-05-17 11:51 | PC.NURSE ---
Patient ambulated to bathroom independently, states he is feeling fine and ready for discharge.
[2023-05-17 13:25] VITALS: BP 95/68; PULSE 65; RESP 18; O2SAT 98
--- NOTE | 2023-05-17 13:25 | PC.NURSE ---
Reviewed discharge plan with patient who verbalized understanding
== END 2023-05-17 13:49 | disposition home or self-care (01) ==
PROVIDERS: Emergency Provider Emergency Medicine
DX: F10.220 Alcohol dependence with intoxication, uncomplicated (principal); Y90.9 Presence of alcohol in blood, level not specified; Z87.891 Personal history of nicotine dependence
CPT/HCPCS: 99282; 99284

== ENCOUNTER 2023-05-23 19:54 | Emergency (ER) | payer MEDICAID, SELFPAY ==
[2023-05-23 20:12] VITALS: BP 110/76; BP 122/95; PULSE 114; PULSE 98; RESP 16; TEMP 36.5; O2SAT 94; O2SAT 97; BMI 20.2
--- NOTE | 2023-05-23 21:23 | ED.GENADULT ---
HPI - General Adult General Chief complaint: ETOH/Substance Use Stated complaint: etoh, per ems Time Seen by Provider: 05/23/23 21:21 Source: patient Mode of arrival: EMS Limitations: no limitations History of Present Illness HPI narrative: Patient alcoholic was found by [place] denies any suicidal ideation, cooperative been here multiple times intoxicated Related Data Home Medications Medication Instructions Recorded Confirmed aspirin 81 mg chewable tablet 81 mg PO DAILY PRN Pain 10/05/22 10/05/22 Allergies Allergy/AdvReac Type Severity Reaction Status Date / Time No Known Allergies Allergy Verified 05/12/23 23:59 [No Known Allergies*] Review of Systems Review of Systems: Yes all other systems are reviewed and are negative PMFSH Past Medical History Medical History Alcohol abuse Surgical History No history of previous surgery Social History Social History Household Members: None Household Members Other:: pt homeless Housing: Other Do you presently have visiting nurse or other home services: No Alcohol intake: current Alcohol intake frequency: 3 or more drinks per day Alcohol type: beer Patient Tobacco Use Status: Former Tobacco user Smoked in Last 30 Days: No Second Hand Smoke Exposure: No Use of substances other than those prescribed or required for medical reasons: No Advance Directives: No Advance Directives Information Provided: No service: No Physical Exam ED Vital Signs: Vital Signs - 24 hr 05/23/23 20:12 05/23/23 21:45 05/24/23 00:44 Temperature 97.7 F 98.4 F 98.7 F Pulse Rate 98 101 H 77 Respiratory Rate 16 18 18 Blood Pressure 122/95 H 150/60 H 135/77 Pulse Oximetry 97 99 99 Oxygen Delivery Method Room Air Room Air Room Air 05/24/23 03:31 Temperature 98.5 F Pulse Rate 101 H Respiratory Rate 17 Blood Pressure 115/66 Pulse Oximetry 94 Oxygen Delivery Method Room Air BMI result Body Mass Index 20.2 Appearance: Alert. Oriented X3. No acute distress. Intoxicated Eyes: PERRLA, No Nystagmus HEENT: Pharynx normal. Oral Mucosa moist AT NC Neck: Normal inspection. Neck supple. CVS: Normal heart rate and rhythm. Pulses normal. Respiratory: No respiratory distress. Equal air entry bilateral, no wheezing/rales/rhonchi Abdomen: Soft and nontender. Bowel sounds are present, no mass palpable, no CVA tenderness Skin: Skin warm and dry. Normal skin color. Normal skin turgor. Extremities: No lower extremity edema. No calf tenderness Neuro: Oriented X 3. No motor deficit. Medical Decision Making Medical Decision Making MDM Narrative: Patient history of alcohol abuse ambulatory in the ED without any ataxia no signs of injury discharge patient home does not want to go to detox Discharge Plan Discharge Clinical Impression: Alcoholic intoxication Patient Disposition: Home, Self-Care Instructions: Abuse of Alcohol (ED) Additional Instructions: Do not drink alcohol Follow-up with detox Prescriptions: No Action aspirin 81 mg Tablet,Chewable 81 mg PO DAILY PRN (Reason: Pain) Interventions: ED Discharge Assessment Last Done: 05/24/23 03:30 Discharge Date/Time: 05/24/23 03:42
[2023-05-23 21:45] VITALS: BP 150/60; PULSE 101; RESP 18; TEMP 36.9; O2SAT 99
--- NOTE | 2023-05-23 21:51 | PC.NURSE ---
patient in bed with eyes open patient is restless and ready to leave patient stated he wants to get back to his beer patient is cooperative with the staff at this time patient is waiting to be seen by the doctor patient will continue to be monitored for safety
[2023-05-24 00:44] VITALS: BP 135/77; PULSE 77; RESP 18; TEMP 37.1; O2SAT 99
--- NOTE | 2023-05-24 00:47 | PC.NURSE ---
patient in bed with eyes open patient have no issues at this time patient will continue to be monitored for safety
--- NOTE | 2023-05-24 03:11 | PC.NURSE ---
patient is in the process of being discharged patient was able to get up and void patient will continue to be monitored until patient is given all paperwork
[2023-05-24 03:31] VITALS: BP 115/66; PULSE 101; RESP 17; TEMP 36.9; O2SAT 94
== END 2023-05-24 03:42 | disposition home or self-care (01) ==
PROVIDERS: Emergency Provider Internal Medicine
DX: F10.120 Alcohol abuse with intoxication, uncomplicated (principal); Y90.9 Presence of alcohol in blood, level not specified
CPT/HCPCS: 99282; 99284

== ENCOUNTER 2023-05-24 04:51 | Emergency (ER) | payer MEDICAID, SELFPAY ==
[2023-05-24 06:05] VITALS: BP 117/79; PULSE 123; RESP 16; TEMP 37.9; O2SAT 94; BMI 19.4
--- NOTE | 2023-05-24 06:09 | PC.NURSE ---
pt is homeless seen and discharged. pt states he sat down to sleep.
[2023-05-24 09:13] VITALS: BP 122/73; PULSE 88; RESP 18; TEMP 36.9; O2SAT 96
--- NOTE | 2023-05-24 09:25 | ED_ITS ---
HPI - General Adult General Chief complaint: Weakness Stated complaint: gen med Time Seen by Provider: 05/24/23 09:23 Source: patient, RN notes reviewed and old records reviewed Mode of arrival: ambulatory History of Present Illness HPI narrative: 53-year-old male with a past medical history of ETOH abuse presenting to the ED stating he was [place] here [place]. Patient was seen and treated in our ED last night, discharged at 06:00 this morning, per triage note patient was discharged, ambulated to the [place] the [place], sat down, and stated her could not walk any further thus ret urned to the ED. patient states he needs to go to [address]. Reports mild EtOH withdrawal at this time, denies history of withdrawal seizures, fall/injury or trauma, neck/back pain, SI/HI. denies other illicit substances Related Data Home Medications Medication Instructions Recorded Confirmed aspirin 81 mg chewable tablet 81 mg PO DAILY PRN Pain 10/05/22 10/05/22 Allergies Allergy/AdvReac Type Severity Reaction Status Date / Time No Known Allergies Allergy Verified 05/12/23 23:59 [No Known Allergies*] Review of Systems Review of Systems: Constitutional: No Fever, No Chills ENT/Mouth: No Ear Pain, No Nasal Congestion, No sore throat, No Rhinorrhea, No Swallowing Difficulty Cardiovascular: No Chest Pain, No SOB Respiratory: No Cough, No Sputum Gastrointestinal: No Nausea, No Vomiting, No Diarrhea, No Constipation, No Abdominal pain Musculoskeletal: No joint pain, No Myalgias, No Joint Swelling Skin: No Skin Lesions, No rash Neuro: No Weakness, No Numbness, No Paresthesias Psych: No SI/HI Yes all other systems are reviewed and are negative Constitutional: Constitutional: Reports as per [facility] Past Medical History Attestation statement: The following information was validated with the patient. Source: old records reviewed Medical History Alcohol abuse Surgical History No history of previous surgery Social History Social History Household Members: None Household Members Other:: pt homeless Housing: Other Do you presently have visiting nurse or other home services: No Alcohol intake: current Alcohol intake frequency: 3 or more drinks per day Alcohol type: beer Patient Tobacco Use Status: Former Tobacco user Second Hand Smoke Exposure: No Advance Directives: No Advance Directives Information Provided: No service: No Physical Exam ED Vital Signs: Vital Signs - 24 hr 05/24/23 06:05 05/24/23 09:13 Temperature 100.3 F 98.5 F Pulse Rate 123 H 88 Respiratory Rate 16 18 Blood Pressure 117/79 122/73 Pulse Oximetry 94 96 Oxygen Delivery Method Room Air Room Air BMI result Body Mass Index 19.4 Const General: cooperative and no acute distress Orientation/consciousness: patient oriented x3 HENMT Head: Yes normal to inspection and Yes atraumatic Ears: hearing grossly normal bilaterally General nose exam: Normal external nose present Face and sinus: Yes normal facial exam Eyes General: appearance normal, both eyes and all related structures EOM: EOMs intact bilaterally Neck Neck: Yes normal visual inspection and Yes no meningeal signs Resp Effort & Inspection: normal respiratory effort and no respiratory distress Cardio Rate: regular rate GI Inspection: Yes normal to inspection Palpation (GI): Soft to palpation, nontender, no guarding and not rigid Skin Rashes: no rashes Wounds: no wounds Neuro Other: Mildly tremulous, no tongue fasciculation General: patient oriented x3, tone normal and no meningeal signs Gait exam (Neuro): Normal gait present Extrem General: Yes normal to inspection Psych Attitude: cooperative Thought content: suicidality and no homicidality Course Course Course Narrative: -[id number]--Patient provided with bus pass, clinically sober and safe for discharge Results discussed with patient including worrisome signs and symptoms and strict return precautions, and when to return to the emergency department. They ve rbalized understanding and feel safe for discharge at this time. Medications Administered Discontinued Medications Generic Name Dose Route Start Last Admin Trade Name Ricardoq PRN Reason Stop Dose Admin Lorazepam 1 mg 05/24/23 10:02 05/24/23 10:20 Lorazepam 1 Mg Tablet PO 05/24/23 10:03 1 mg ONCE ONE Administration Medical Decision Making Medical Decision Making [facility] Narrative: 53-year-old male with a past medical history of ETOH abuse presenting to the ED stating he was [place] On exam initially tachycardic, vital signs stable at present, mildly tremulous, no tongue fasciculations, no evidence of trauma. Denies SI/HI. Concern for ETOH dependence. Plan: PO Ativan, bus pass, discharge Please refer to course for remaining clinical decision making, interpretation of labs/imaging results, and discussions with consultants and/or family members. Differential Diagnosis Differential Diagnoses: The differential diagnosis associated with the presentation includes As above External Record Review External record reviewed: Inpatient record, Office record, Outpatient record, Prior outpatient labs, Prior outpatient radiology, Primary care record and Outside ED record Tests considered The following testing was considered but not selected: As above Social Determinants Patient?s care significantly limited by Social Determinants of Health including: Inadequate housing, Low income, Alcoholism and drug addiction in family and Other Social Determinant of Health Discharge Plan Discharge Clinical Impression: Alcohol dependence Patient Disposition: Home, Self-Care Instructions: Abuse of Alcohol (DC) Additional Instructions: avoid alcohol and drug use this can kill you Continue home medications Prescriptions: No Action aspirin 81 mg Tablet,Chewable 81 mg PO DAILY PRN (Reason: Pain) Referrals: [employer],[facility] [Primary Care Provider] - Interventions: ED Discharge Assessment Last Done: 05/24/23 11:25 Discharge Date/Time: 05/24/23 11:15
[2023-05-24] MEDS: LORazepam 1 MG TABLET PO (10:20)
== END 2023-05-24 11:15 | disposition home or self-care (01) ==
PROVIDERS: Emergency Provider Emergency Medicine
DX: F10.20 Alcohol dependence, uncomplicated (principal); Y90.9 Presence of alcohol in blood, level not specified; R00.0 Tachycardia, unspecified; Z79.82 Long term (current) use of aspirin
CPT/HCPCS: 99283

== ENCOUNTER 2023-05-24 22:40 | Emergency (ER) | payer MEDICAID, SELFPAY ==
--- NOTE | ~2023-05-24 | CT_ITS ---
EXAMINATION: CT ABDOMEN AND PELVIS WITH CONTRAST CLINICAL INFORMATION: Abdominal pain, high bilirubin COMPARISON: None available. TECHNIQUE: Multidetector volumetric images were obtained from the superior aspect of the liver through the pubic symphysis following administration 85 mL of Omnipaque 350 intravenous contrast. Sagittal and coronal reformatted images were obtained on the technologist's workstation. Oral contrast: No This CT examination was performed using dose optimization techniques as appropriate, variously including the following: *Automated exposure control *Adjustment of mA and/or kV according to patient size (this includes techniques or standardized protocols for targeted exams where dose is matched to indication/reason for exam; i.e. extremities or head) *Use of iterative reconstruction technique DLP: 490 mGy-cm FINDINGS: LUNG BASES: There is patchy consolidation, predominantly in the left lower lobe and to a lesser degree in the right lung. LIVER, GALLBLADDER, AND BILIARY TREE: Liver demonstrates heterogeneous hypoattenuation suggesting nonuniform fatty infiltration, though this appearance limits evaluation for underlying focal lesions. No intrahepatic biliary ductal dilatation. Gallbladder is distended, with layering gallstones present. PANCREAS: Mild peripancreatic stranding noted. SPLEEN: Unremarkable. ADRENAL GLANDS: Unremarkable. KIDNEYS AND URETERS: Bilateral nephrograms are symmetric. No hydronephrosis or obstructing calculus identified. BLADDER: Unremarkable. GASTROINTESTINAL TRACT: No evidence of bowel obstruction. There is a somewhat thick-walled appearance of some segments of the colon though this is suboptimally assessed due to luminal collapse. Appendix is not well delineated. Small volume ascites. No free air is seen. ABDOMINAL WALL: No significant hernia is appreciated. LYMPH NODES: Normal. VASCULAR: Mild atherosclerotic calcification. Upper abdominal varices are noted. PELVIC VISCERA: Unremarkable. OSSEOUS STRUCTURES: Chronic-appearing severe compression deformity of the T8 vertebral body. CT/CT abdomen pelvis w IV con IMPRESSION: 1. Mild peripancreatic stranding, which could indicate acute pancreatitis. Correlation with laboratory values is recommended 2. Small volume ascites. 3. Cholelithiasis. 4. Heterogeneous hypoattenuation of the liver suggesting nonuniform fatty infiltration, though this appearance limits evaluation for underlying focal lesions. 5. Patchy pulmonary consolidation, predominantly in the left lower lobe, suspicious for pneumonia or possibly sequelae of aspiration. 6. Somewhat thick-walled appearance of some segments of the colon, though this is suboptimally assessed due to luminal collapse. Colitis would be difficult to entirely exclude in the proper clinical setting. 7. Chronic-appearing severe compression deformity of the T8 vertebral body.
--- NOTE | ~2023-05-24 | CT_ITS ---
EXAMINATION: CT HEAD WITHOUT CONTRAST CLINICAL INFORMATION: Altered mental status, alcohol COMPARISON: 10/24/2022 TECHNIQUE: Contiguous axial imaging was performed from the skull base to vertex without intravenous administration of contrast. This CT examination was performed using dose optimization techniques as appropriate, variously including the following: *Automated exposure control *Adjustment of mA and/or kV according to patient size (this includes techniques or standardized protocols for targeted exams where dose is matched to indication/reason for exam; i.e. extremities or head) *Use of iterative reconstruction technique DLP: 561 mGy-cm FINDINGS: There is no evidence of acute intracranial hemorrhage or territorial infarction. No abnormal mass-effect or midline shift is seen. Weaver to white matter differentiation is well preserved. No extra-axial fluid collections are identified. The ventricles are normal in size. There is mild periventricular white matter hypoattenuation consistent with chronic small vessel ischemic disease. Mild volume loss is noted. The osseous structures and soft tissues are normal. The mastoid air cells and visualized portions of the paranasal sinuses are well-aerated. CT/CT head/brain wo IV con IMPRESSION: No acute intracranial pathology.
--- NOTE | ~2023-05-24 | XR_ITS ---
EXAMINATION: XR CHEST CLINICAL INFORMATION: Chest pain COMPARISON: None available. TECHNIQUE: 2 views of the chest were obtained. FINDINGS: The heart and pulmonary vessels appear normal. Bibasilar atelectasis/infiltrates are seen, left greater than right. No pleural effusions. No CHF or lung masses. XR/XR chest 2V IMPRESSION: Bibasilar atelectasis/infiltrates, left greater than right.
[2023-05-24 22:43] VITALS: BP 116/54; PULSE 94; O2SAT 98
--- NOTE | 2023-05-24 22:55 | ED.GENADULT ---
HPI - General Adult General Chief complaint: ETOH/Substance Use Stated complaint: ETOH Time Seen by Provider: 05/24/23 22:54 Source: patient Mode of arrival: ambulatory Limitations: no limitations History of Present Illness HPI narrative: 52-year-old male history of alcohol withdrawal syndrome, alcohol abuse presenting with acute alcohol intoxication, patient very intoxicated however alert and oriented x3, not answering my questions, minimally cooperative, per EMS he was found on the sidewalk lying down, police called for EMS assistance, they brought him in for further evaluation.? Related Data Home Medications Medication Instructions Recorded Confirmed aspirin 81 mg chewable tablet 81 mg PO DAILY PRN Pain 10/05/22 10/05/22 Allergies Allergy/AdvReac Type Severity Reaction Status Date / Time No Known Allergies Allergy Verified 05/12/23 23:59 [No Known Allergies*] Review of Systems Review of Systems: Yes Unobtainable due to mental status PMFSH Past Medical History Attestation statement: The following information was validated with the patient. Source: old records reviewed and nursing notes reviewed Medical History Alcohol abuse Surgical History No history of previous surgery Social History Social History Household Members: None Household Members Other:: pt homeless Housing: Other Do you presently have visiting nurse or other home services: No Alcohol intake: current Alcohol intake frequency: 3 or more drinks per day Alcohol type: beer Patient Tobacco Use Status: Former Tobacco user Second Hand Smoke Exposure: No Advance Directives: No Advance Directives Information Provided: Yes service: No Physical Exam ED Vital Signs: BMI result Body Mass Index 21.5 vss Appearance: Alert.? Oriented X3.? No acute distress.? Patient smells like alcohol. Head:? Normocephalic, atraumatic, no step-offs or deformities Eyes: Pupils equal, round and reactive to light.? Neck: Normal inspection.? Neck supple.? CVS: Normal heart rate and rhythm.? Pulses normal.? Respiratory: No respiratory distress.? Breath sounds normal.? Abdomen: Soft and nontender.? Skin: Skin warm and dry.? Normal skin color.? Normal skin turgor.? Extremities: No lower extremity edema.? No calf ttp.? 5/5 strength to bilateral upper and lower extremities Neuro: Oriented X 3.? No motor deficit.? No sensory deficit. CN 2-12 intact .? Patient answer questions appropriately, following commands.? Ambulating with steady gait normal coordination.? Course Reevaluation(s) Reevaluation #1: Patient doesnt want labs. CT pending Time: 23:35 Reevaluation #2: Labs are obtained and are showing a macrocytic anemia likely secondary to chronic alcohol use, I did order in OBS on patient he is adamantly refusing a rectal exam, screaming that he refuses in the hallway. Platelet count chronically low however lower than usual. Patient's sodium 130, IV fluids ordered. Patient is noted to have a Mag of 1.5, IV Mag ordered, total bilirubin of 4.4, deviating significantly from baseline however, no abdominal tenderness on palpation, this could be secondary to hemolysis. I did discuss this case with my attending who tells me that bilirubin of 4.4 likely secondary to hemolytic process. Recommends rectal exam which patient is adamantly refusing. Will obtain a CT abdomen and pelvis at this time and add a haptoglobin. Time: 00:28 Reevaluation #3: Haptoglobin still pending as well as repeat CMP, CT abd and pelvis. Plan sign out to Dr. Olsen, pending previously stated and reeval. Time: 01:42 Medications Administered Generic Name Dose Route Start Last Admin Trade Name Freq PRN Reason Stop Dose Admin Magnesium Sulfate 2 gm in 50 mls @ 25 mls/hr 05/25/23 00:28 05/25/23 01:40 Magnesium Sulfate/H2o IV 05/25/23 02:27 25 mls/hr ONCE ONE Administration Sodium Chloride 1,000 mls @ 999 mls/hr 05/25/23 01:15 05/25/23 01:40 Ns IV 05/25/23 02:15 999 mls/hr .Q1H1M JOSE MANUEL Administration Discontinued Medications Generic Name Dose Route Start Last Admin Trade Name Freq PRN Reason Stop Dose Admin Sodium Chloride 1,000 mls @ 999 mls/hr 05/25/23 00:30 05/25/23 01:39 Ns IV 05/25/23 01:30 999 mls/hr .Q1H1M JOSE MANUEL Administration Medical Decision Making Medical Decision Making [facility] Narrative: [id number] 53 year old male presents w/ acute alcohol intoxication per EMS patient told PD that he had 5 beers and 1 pt of vodka, no medical complaints, requesting another alcoholic drink upon arrival. PE patient smells like alcohol, neuro non focal, no evidence of truama Likley alcohol intox due to patient being intoxicated and poor historian will obtain head CT [place] ICH, storke, posterior stroke, likley alcohol intox. Plan- labs, medical clearance, clinical sobriety Differential Diagnosis Differential Diagnoses: The differential diagnosis associated with the presentation includes Likley alcohol intox due to patient being intoxicated and poor historian will obtain head and neck CT Unlike[place] ICH, storke, posterior stroke, likley alcohol intox. Admission/Observation Consideration of admission/observation: Escalation of care including admission/observation considered unlikely Lab Data 05/24/23 23:39 05/24/23 23:39 Labs: Lab Results 05/24/23 05/24/23 05/24/23 Range/Units 23:39 23:39 23:39 WBC 8.7 (4.8-10.8) X10*3/uL RBC 2.39 L D (4.60-5.80) X10*6/uL Hgb 8.5 L D (14.0-18.0) g/dl Hct 24.7 L D (42.0-52.0) % MCV 103.3 H (80.0-98.0) fL MCH 35.6 H (27.0-33.0) pg MCHC 34.4 (31.0-36.0) g/dl RDW 16.1 H (11.0-16.0) % Plt Count 46 L (160-400) X10*3/uL MPV 14.1 H (9.4-12.4) fL Immature Gran % (Auto) 1.3 H (0.0-0.4) % Neut % (Auto) 77.1 H (45-73) % Lymph % (Auto) 12.6 L (20-40) % Harris % (Auto) 8.2 (2-11) % Eos % (Auto) 0.3 (0-4) % Baso % (Auto) 0.5 (0-2) % Lymph # (Auto) 1.1 L (1.2-4.9) X10*3/uL Harris # (Auto) 0.7 (0.1-1.2) X10*3/uL Eos # (Auto) 0.0 (0.0-0.4) X10*3/uL Baso # (Auto) 0.0 (0.0-0.2) X10*3/uL Abs Immat Gran (auto) 0.11 H (0.00-0.03) X10*3/uL Absolute Neuts (auto) 6.7 (2.0-8.3) x10*3/uL Absolute Nucleated RBC 0.000 (0.0-0.012) X10*3/uL Nucleated RBC % (auto) 0.0 (0.0-0.2) /100WBC Sodium 130 L (135-145) mmol/L Potassium 3.6 (3.3-5.1) mmol/L Chloride 95 L (96-108) mmol/L Carbon Dioxide 19 L (22-29) mmol/L Anion Gap 20 (12-20) BUN 10 (9-16) mg/dL Creatinine 1.27 (0.5-1.4) mg/dL Estim Creat Clear Calc 63.9 Estimated GFR 59 Random Glucose 98 (60-115) mg/dL Calcium 8.8 (8.4-10.2) mg/dL Magnesium 1.5 L (1.6-2.6) mg/dL Total Bilirubin 4.4 H (0.0-1.0) mg/dL AST 82 H (5-37) U/L ALT 17 (0-40) U/L Alkaline Phosphatase 100 (39-117) U/L Total Protein 7.9 (6.5-8.0) g/dL Albumin 2.5 L (3.5-5.0) g/dL Lipase 60 (8-78) U/L Salicylates < 5.0 L (15-30) mg/dL Acetaminophen < 17 (<30) mcg/mL Ethyl Alcohol 256 mg/dL Independent Interpretation I performed an independent interpretation of an: CT Scan Radiology Impression Discussion of test interpretation with radiology: I have reviewed the radiologist's reading. Core Measures AMI core measures followed: Yes Measure exclusions: not indicated Critical Care Time Critical Care Time Critical Care Time: No Discharge Plan Discharge Clinical Impression: Alcoholic intoxication, Alcohol dependence, Anemia, macrocytic, Hyperbilirubinemia, Acute hyponatremia Instructions: Alcohol Intoxication (ED), Alcohol Dependence (ED) Prescriptions: No Action aspirin 81 mg Tablet,Chewable 81 mg PO DAILY PRN (Reason: Pain)
[2023-05-24 23:31] VITALS: BMI 21.5
[2023-05-24 23:45] LABS: MANUAL DIFF FLAG NO
[2023-05-24 23:55] LABS: Basophils Percent Auto 0.5 % (0-2); Eosinophils Percent Auto 0.3 % (0-4); Hematocrit 24.7 % (42.0-52.0); Hemoglobin 8.5 g/dl (14.0-18.0); Imm Gran Abs Auto 0.11 X10*3/uL (0.00-0.03); Imm Gran Pct Auto 1.3 % (0.0-0.4); Lymphocytes Absolute Auto 1.1 X10*3/uL (1.2-4.9); Lymphocytes Percent Auto 12.6 % (20-40); Mean Corpuscular HGB Conc 34.4 g/dl (31.0-36.0); Mean Corpuscular Hemoglobin 35.6 pg (27.0-33.0); Mean Corpuscular Volume 103.3 fL (80.0-98.0); Mean Platelet Volume 14.1 fL (9.4-12.4); Monocytes Absolute Auto 0.7 X10*3/uL (0.1-1.2); Monocytes Percent Auto 8.2 % (2-11); Neutrophils Absolute Auto 6.7 x10*3/uL (2.0-8.3); Neutrophils Percent Auto 77.1 % (45-73); Red Blood Count 2.39 X10*6/uL (4.60-5.80); Red Cell Distribution Width 16.1 % (11.0-16.0); White Blood Count 8.7 X10*3/uL (4.8-10.8)
[2023-05-25 00:02] LABS: Alanine Aminotransferase 17 U/L (0-40); Albumin Level 2.5 g/dL (3.5-5.0); Alkaline Phosphatase 100 U/L (39-117); Anion Gap 20 (12-20); Aspartate Amino Transferase 82 U/L (5-37); Bilirubin Total 4.4 mg/dL (0.0-1.0); Blood Urea Nitrogen 10 mg/dL (9-16); Calcium 8.8 mg/dL (8.4-10.2); Carbon Dioxide 19 mmol/L (22-29); Chloride 95 mmol/L (96-108); Creatinine Clr Calc Pharmacy 63.9; Estimated Glomerular Filt Rate 59; Ethanol 256 mg/dL; Glucose Random 98 mg/dL (60-115); Magnesium 1.5 mg/dL (1.6-2.6); Platelet Count 46 X10*3/uL (160-400); Potassium 3.6 mmol/L (3.3-5.1); Sodium 130 mmol/L (135-145); Total Protein 7.9 g/dL (6.5-8.0)
[2023-05-25 00:04] LABS: Acetaminophen LAB < 17 mcg/mL (<30); Salicylate < 5.0 mg/dL (15-30)
[2023-05-25 00:39] LABS: Lipase 60 U/L (8-78)
[2023-05-25] MEDS: 0.9 % Sodium Chloride 1,000 ML 999 ML IV ×3 (01:39→08:01)
[2023-05-25] MEDS: Magnesium Sulfate/H2O 2 GM/50 ML PIGGYBACK IV (01:40)
[2023-05-25] MEDS: iohexoL 350 MG/ML 100 ML INFUS..BTL 85 ML IV (02:17)
[2023-05-25 02:49] VITALS: BP 131/77; PULSE 90; RESP 14; TEMP 36.8; O2SAT 95
[2023-05-25 02:56] LABS: Alanine Aminotransferase 16 U/L (0-40); Albumin Level 2.2 g/dL (3.5-5.0); Alkaline Phosphatase 92 U/L (39-117); Anion Gap 18 (12-20); Aspartate Amino Transferase 76 U/L (5-37); Bilirubin Total 3.7 mg/dL (0.0-1.0); Blood Urea Nitrogen 9 mg/dL (9-16); Calcium 8.1 mg/dL (8.4-10.2); Carbon Dioxide 19 mmol/L (22-29); Chloride 96 mmol/L (96-108); Creatinine Clr Calc Pharmacy 88.3; Estimated Glomerular Filt Rate > 60; Glucose Random 84 mg/dL (60-115); Potassium 3.6 mmol/L (3.3-5.1); Sodium 129 mmol/L (135-145); Total Protein 7.3 g/dL (6.5-8.0)
[2023-05-25 04:46] LABS: Amphetamine Screen Urine Not Detected (Not Detect); Barbiturates, Urine Not Detected (Not Detect); Benzodiazepines Screen Urine Not Detected (Not Detect); Cannabinoid Screen Urine Not Detected (Not Detect); Cocaine Screen Urine Not Detected (Not Detect); Fentanyl, urine Not Detected (Not Detect); Opiate Screen Urine Not Detected (Not Detect); Phencyclidine Screen Urine Not Detected (Not Detect)
[2023-05-25 04:53] LABS: Lipase 43 U/L (8-78)
[2023-05-25 06:00] VITALS: BP 99/54; PULSE 79; RESP 14; TEMP 37.2; O2SAT 96
[2023-05-25] MEDS: Doxycycline Monohydrate 100 MG CAPSULE PO (06:01)
[2023-05-25 07:42] VITALS: BP 92/60; PULSE 99; RESP 18; TEMP 36.8; O2SAT 92
--- NOTE | 2023-05-25 07:52 | PC.NURSE ---
a&ox3, respirations even and unlabored, lung sounds clear, but sating anywhere from 91-93 on RA. skin appropriate for ethnicity. pt easy to arouse.
[2023-05-25 08:46] VITALS: O2SAT 93
[2023-05-25 08:47] LABS: Anion Gap 14 (12-20); Blood Urea Nitrogen 8 mg/dL (9-16); Calcium 7.8 mg/dL (8.4-10.2); Carbon Dioxide 20 mmol/L (22-29); Chloride 105 mmol/L (96-108); Creatinine Clr Calc Pharmacy 111.3; Estimated Glomerular Filt Rate > 60; Glucose Random 88 mg/dL (60-115); Potassium 3.7 mmol/L (3.3-5.1); Sodium 135 mmol/L (135-145)
[2023-05-25 09:08] VITALS: BP 155/94; PULSE 106; O2SAT 92
[2023-05-29 16:13] LABS: Haptoglobin 114 mg/dL (43-212)
== END 2023-05-25 09:11 | disposition still patient (30) ==
PROVIDERS: Physician Assistant; Student in an Organized Health Care Education/Training Program; Emergency Provider Emergency Medicine Emergency Medical Services
DX: F10.220 Alcohol dependence with intoxication, uncomplicated (principal); Y90.8 Blood alcohol level of 240 mg/100 ml or more; D53.9 Nutritional anemia, unspecified; E80.6 Other disorders of bilirubin metabolism; E87.1 Hypo-osmolality and hyponatremia; R50.9 Fever, unspecified; R00.0 Tachycardia, unspecified; Z87.891 Personal history of nicotine dependence; Z79.82 Long term (current) use of aspirin
CPT/HCPCS: 36415; 70450; 71046; 74177; 80048; 80053; 80143; 80179; 80307; 83010; 83690; 83735; 85025; 96361; 96365; 96366; 99285; J3475; Q9967

== ENCOUNTER 2023-05-29 18:58 | Emergency (ER) | payer MEDICAID, SELFPAY ==
[2023-05-29 19:19] VITALS: BP 104/62; PULSE 102; O2SAT 99
[2023-05-29 19:25] VITALS: BP 113/72; PULSE 98; RESP 16; TEMP 37.2; O2SAT 97; BMI 19.4
--- NOTE | 2023-05-29 19:53 | ED_ITS ---
HPI - Alcohol General Chief Complaint: ETOH/Substance Use Stated Complaint: etoh, calm and cooperative, per ems Time Seen by Provider: 05/29/23 19:34 Source: patient and EMS Mode of arrival: EMS Limitations: no limitations History of Present Illness HPI narrative: 53-year-old male homeless with history of alcohol dependence who is well known to our emergency department staff for frequent ED visits due to alcohol intoxication. Patient stated that the police called the ambulance for the patient to come to the hospital he did not want to come, patient currently have no symptoms, no headache, no neck pain, CP, no SOB, no abdominal pain, no fever, no chills. Patient wants to be discharged. Related Data Home Medications Medication Instructions Recorded Confirmed aspirin 81 mg chewable tablet 81 mg PO DAILY PRN Pain 10/05/22 10/05/22 Previous Rx's Medication Instructions Recorded amoxicillin 875 mg-potassium 1 tab PO BID 7 days #14 tabs 05/25/23 clavulanate 125 mg tablet Allergies Allergy/AdvReac Type Severity Reaction Status Date / Time No Known Allergies Allergy Verified 05/29/23 19:25 [No Known Allergies*] Review of Systems Review of Systems: All other systems are reviewed and are negative Constitutional: Reports as per HPI and Reports no additional constitutional complaints Eyes: Reports as per HPI and Reports no additional eye complaints Reports system reviewed and no additional complaints, except as documented Cardiovascular: Reports as per HPI and Reports no additional cardiovascular complaints Respiratory: Reports as per HPI and Reports no additional respiratory complaints Gastrointestinal: Reports as per HPI and Reports no additional gastrointestinal complaints Genitourinary: Reports no additional female genitourinary complaints Musculoskeletal: Reports no additional musculoskeletal complaints Skin/Breast: Reports system reviewed and no additional complaints, except as docu Psychiatric: Reports no additional psychiatric complaints Endocrine: Reports no additional endocrine complaints Hematologic/Lymphatic: Reports no additional hematologic/lymphatic complaints Allergic/Immunologic: Reports no additional allergic/immunologic complaints Reports system reviewed and no additional complaints, except as documented and Reports Abnormal speech present [facility] Past Medical History Medical History Alcohol abuse Surgical History No history of previous surgery Social History Social History Household Members: None Household Members Other:: pt homeless Housing: Other Do you presently have visiting nurse or other home services: No Alcohol intake: current Alcohol intake frequency: 3 or more drinks per day Alcohol type: beer Patient Tobacco Use Status: Former Tobacco user Second Hand Smoke Exposure: No Advance Directives: No Advance Directives Information Provided: No service: No Physical Exam ED Vital Signs: Vital Signs - 24 hr 05/29/23 19:25 Temperature 98.9 F Pulse Rate 98 Respiratory Rate 16 Blood Pressure 113/72 Pulse Oximetry 97 Oxygen Delivery Method Room Air BMI result Body Mass Index 19.4 Vital signs have been reviewed as appeared to be correct. Blood pressure normal. Heart rate normal. Respiration rate normal. Temperature normal. Oxygen saturation normal. Appearance: Disheveled, Alert. Oriented X3. No acute distress. Head: Normal external exam. Normocephalic. Atraumatic. No [place] signs noted. No raccoon eyes noted Eyes: PERRLA. EOMI. Conjunctiva and sclera normal. Eyelids normal. ENT: TM's Normal. Pharynx normal. Uvula midline. Moist mucous membranes. No trismus noted. No drooling noted. No muffled voice noted. Neck: Normal inspection. Neck supple. FROM. No adenopathy. Thyroid Normal. No meningeal signs. No neck mass noted. CVS: Normal heart rate and rhythm. Heart sound normal. No murmurs noted. Pulses normal throughout. Respiratory: No respiratory distress. Painless inspiration. Breath sounds normal. No wheezes/rales/rhonchi noted. Chest nontender. No accessory muscle usage noted or decreased air movement noted. Abdomen: Soft and nontender. Bowel sounds normal in all 4 quadrants. No distention noted. No organomegaly noted. No visible injury noted. Back: No CVA tenderness. Full range of motion noted. Skin: Skin warm and dry. Normal skin color. Normal skin turgor. No rashes/lesions/lacerations noted. Extremities: No lower extremity edema. Extremities exhibit normal range of motion. Extremities nontender. Neuro: Oriented X 3. Cranial nerve exam: II-XII are grossly intact No motor deficit. No sensory deficit. Reflexes normal. Course Reevaluation(s) Reevaluation #1: Alcohol intoxication no trauma, asymptomatic will discharge. Time: 22:00 Medical Decision Making Differential Diagnosis Differential Diagnoses: The differential diagnosis associated with the presentation includes (Alcohol intoxication, trauma, head injury.) Admission/Observation Consideration of admission/observation: Escalation of care including admission/observation considered Social Determinants Patient?s care significantly limited by Social Determinants of Health including: Low income, Alcoholism and drug addiction in family and Other Social Determinant of Health Discharge Plan Discharge Clinical Impression: Alcoholic intoxication Patient Disposition: Home, Self-Care Instructions: Alcohol Intoxication (ED) Prescriptions: No Action aspirin 81 mg Tablet,Chewable 81 mg PO DAILY PRN (Reason: Pain) amoxicillin-pot clavulanate 875-125 mg tablet 1 tab PO BID 7 Days Qty: 14 0RF
[2023-05-29 23:27] VITALS: BP 95/67; PULSE 87; RESP 18; O2SAT 94
--- NOTE | 2023-05-30 02:11 | PC.NURSE ---
Report received and care assumed at 0100. Pt has since been in the stretcher, resting comfortably with respirations even and unlabored without distress noted. RN and ED staff will continue to monitor and provide updates as needed.
== END 2023-05-30 08:35 | disposition home or self-care (01) ==
PROVIDERS: Emergency Provider Emergency Medicine
DX: F10.220 Alcohol dependence with intoxication, uncomplicated (principal); Y90.9 Presence of alcohol in blood, level not specified
CPT/HCPCS: 99282

== ENCOUNTER 2023-06-01 00:46 | Emergency (ER) | payer MEDICAID, SELFPAY ==
[2023-06-01 00:57] VITALS: BP 130/80; PULSE 102; O2SAT 96
--- NOTE | 2023-06-01 01:09 | ED.ALCOHOL ---
HPI - Alcohol General Chief Complaint: ETOH/Substance Use Stated Complaint: ETOH Time Seen by Provider: 06/01/23 01:01 Source: patient Mode of arrival: EMS Limitations: no limitations History of Present Illness HPI narrative: Patient comes in the emergency room via EMS. Patient was found by the police department sleeping on the floor. EMS was called and patient was brought to emergency room. Patient is well-known to our service, patient frequently visits the ED secondary to alcohol intoxication. Patient states that he did not fall, no head injuries, no physical pain. Patient admits to drinking alcohol, denies drug use. Denies chest pain or shortness of breath, no fever chills. Denies suicidal or homicidal ideation Related Data Home Medications Medication Instructions Recorded Confirmed aspirin 81 mg chewable tablet 81 mg PO DAILY PRN Pain 10/05/22 10/05/22 Previous Rx's Medication Instructions Recorded amoxicillin 875 mg-potassium 1 tab PO BID 7 days #14 tabs 05/25/23 clavulanate 125 mg tablet Allergies Allergy/AdvReac Type Severity Reaction Status Date / Time No Known Allergies Allergy Verified 05/29/23 19:25 [No Known Allergies*] Review of Systems Review of Systems: Constitutional : No Weight loss, No Fever, No Chills, No Night Sweats, No Fatigue, No Malaise ENT/Mouth : No Hearing loss, No Ear Pain, No Nasal Congestion, No Sinus Pain, No Hoarseness, No sore throat, No Rhinorrhea, No Swallowing Difficulty Eyes: No Eye Pain, No Swelling, No Redness, No Foreign Body, No Discharge, No Vision Changes Cardiovascular : No Chest Pain, No SOB, No Dyspnea on Exertion, No Orthopnea, No Edema, No Palpitations Respiratory : No Cough, No Sputum, No Wheezing, No Smoke Exposure, No Dyspnea Gastrointestinal : No Nausea, No Vomiting, No Diarrhea, No Constipation, No abdominal Pain, No Hematochezia, No Melena Genitourinary : no irregular bleeding, No Dysuria, No Urinary Frequency, No Hematuria, No Urinary Incontinence, No Urgency, No Flank Pain, No Urinary Flow Changes, No Hesitancy Musculoskeletal : No joint pain, No Myalgias, No Joint Swelling Skin : No Skin Lesions, No rash Neuro : No Weakness, No Numbness, No Paresthesias, No Loss of Consciousness, No Dizziness, No Headache Psych : No Anxiety/Panic, No Depression, No SI/HI/AH/VH, admits to alcohol abuse Heme/Lymph: No Bruising, No Bleeding,No Lymphadenopathy Endocrine : No Polyuria, No Polydipsia, No Temperature Intolerance [facility] Past Medical History Medical History Alcohol abuse Surgical History No history of previous surgery Social History Social History Household Members: None Household Members Other:: pt homeless Housing: Other Do you presently have visiting nurse or other home services: No Alcohol intake: current Alcohol intake frequency: 3 or more drinks per day Alcohol type: beer Patient Tobacco Use Status: Former Tobacco user Smoked in Last 30 Days: Yes Second Hand Smoke Exposure: No Use of substances other than those prescribed or required for medical reasons: No Advance Directives: No Advance Directives Information Provided: Yes service: No Physical Exam ED Vital Signs: Vital Signs - 24 hr 06/01/23 01:11 Pulse Rate 91 Respiratory Rate 18 Blood Pressure 114/79 Pulse Oximetry 94 BMI result Body Mass Index 19.4 Const Other: Appearance: Alert. Oriented X3. No acute distress. Alcohol intoxication but fairly coherent Eyes: Pupils equal, round and reactive to light. ENT: Pharynx normal. Neck: Normal inspection. Neck supple. No lymph nodes noted. No crepitus CVS: Normal heart rate and rhythm. Pulses normal. Normal S1 and S2 Respiratory: No respiratory distress. Breath sounds normal. No Wheezing. No rales Abdomen: Soft and nontender. No rigidity. No distention. Skin: Skin warm and dry. Normal skin color. Normal skin turgor. Extremities: No lower extremity edema. No Lacerations. No Rash Neuro: Oriented X 3. No motor deficit. No sensory deficit. Moving all extremities. No slurred speech. CN 2 through 12 grossly intact Psych: calm, cooperative, normal affect Course Course Course Narrative: -patient has no injuries -no medical concerns -plan: Metabolize to freedom -physician observation started at 01:00 Discharge Plan Discharge Clinical Impression: Alcohol intoxication Patient Disposition: Home, Self-Care Instructions: Alcohol Intoxication (ED) Additional Instructions: Please follow-up with your primary care physician tomorrow. If you have any worsening or new symptoms, please return to the emergency room or call 911 Prescriptions: No Action aspirin 81 mg Tablet,Chewable 81 mg PO DAILY PRN (Reason: Pain) amoxicillin-pot clavulanate 875-125 mg tablet 1 tab PO BID 7 Days Qty: 14 0RF
[2023-06-01 01:11] VITALS: BP 114/79; PULSE 91; RESP 18; O2SAT 94; BMI 19.4
--- NOTE | 2023-06-01 07:08 | PC.NURSE ---
assumed care of pt at 0700. pt resting quietly.
--- NOTE | 2023-06-01 08:08 | PC.NURSE ---
pt awake. breakfast given.
--- NOTE | 2023-06-01 09:14 | PC.NURSE ---
pt cleared for discharge, breakfast given. pt refused discharge papers. pt escorted to er exit.
== END 2023-06-01 09:14 | disposition home or self-care (01) ==
PROVIDERS: Emergency Provider Emergency Medicine
DX: F10.120 Alcohol abuse with intoxication, uncomplicated (principal); Y90.9 Presence of alcohol in blood, level not specified; I50.9 Heart failure, unspecified; Z79.82 Long term (current) use of aspirin
CPT/HCPCS: 99283; 99284

== ENCOUNTER 2023-06-08 13:56 | Inpatient (IN) | payer MEDICAID, SELFPAY ==
[2023-06-08] VITALS (10 sets, daily range): BP systolic 98–119; BP diastolic 62–72; PULSE 92–108; RESP 16–22; TEMP 36.4–37.2; O2SAT 88–96; BMI 27.8; BMI 22.4
--- NOTE | ~2023-06-08 | XR_ITS ---
EXAMINATION: XR CHEST CLINICAL INFORMATION: Evaluate for failure. COMPARISON: 05/25/2023 chest radiograph. TECHNIQUE: 2 views of the chest were obtained. FINDINGS: Mild bibasilar linear markings are seen. The upper lung sánchez are clear. The heart and mediastinal structures are unremarkable. XR/XR chest 2V IMPRESSION: Mild bibasilar linear atelectasis versus scarring. No acute cardiopulmonary process.
--- NOTE | 2023-06-08 13:59 | ED.GENADULT ---
HPI - General Adult General Chief complaint: Extremity Problem Stated complaint: both feet swelling Time Seen by Provider: 06/08/23 15:17 Source: patient Mode of arrival: ambulatory Limitations: no limitations History of Present Illness HPI narrative: 53 yo male with history of alcohol abuse here with complaints of bilateral lower leg swelling, ran out of his ?lasix. Currently homeless. No SOB, chest pain, cough, fevers, chills. Has had weakness, fatigue. Drinking 2 pints of fireball daily. Last use earlier today. No additional substance use. Has had dark stools. No abdominal pain, vomiting. Related Data Home Medications Medication Instructions Recorded Confirmed aspirin 81 mg chewable tablet 81 mg PO DAILY PRN Pain 10/05/22 10/05/22 Previous Rx's Medication Instructions Recorded amoxicillin 875 mg-potassium 1 tab PO BID 7 days #14 tabs 05/25/23 clavulanate 125 mg tablet Allergies Allergy/AdvReac Type Severity Reaction Status Date / Time No Known Allergies Allergy Verified 05/29/23 19:25 [No Known Allergies*] Review of Systems Review of Systems: Yes all other systems are reviewed and are negative Constitutional: Constitutional: Reports no additional constitutional complaints, Denies body ache(s), Denies chills, Reports fatigue, Denies fever(s), Denies headache(s) and Reports weakness Eyes: Eyes: Reports no additional eye complaints and Denies change in vision ENT: Reports system reviewed and no additional complaints, except as documented, Denies dizziness, Denies headache(s), Denies nasal congestion, Denies nasal discharge and Denies neck pain Cardiovascular: Cardiovascular: Reports no additional cardiovascular complaints, Denies chest pain, Reports leg edema and Denies dyspnea Respiratory: Respiratory: Reports no additional respiratory complaints, Denies cough and Denies dyspnea Gastrointestinal: Gastrointestinal: Reports no additional gastrointestinal complaints, Denies abdominal pain, Reports melena, Denies diarrhea, Denies nausea and Denies vomiting Genitourinary: Genitourinary: Denies urinary incontinence Musculoskeletal: Musculoskeletal: Reports no additional musculoskeletal complaints, Denies back pain, Denies arthralgias, Denies joint swelling, Denies neck pain, Denies numbness and Denies tingling Integumentary/Breasts: Skin/Breast: Reports system reviewed and no additional complaints, except as docu and Denies rash Neurologic: Reports system reviewed and no additional complaints, except as documented, Denies dizziness, Denies headache(s), Denies numbness, Denies tingling and Reports weakness Endocrine: Endocrine: Reports fatigue PMFSH Past Medical History Attestation statement: The following information was validated with the patient. Source: old records reviewed and nursing notes reviewed Medical History Alcohol abuse Surgical History No history of previous surgery Social History Social History Household Members: None Household Members Other:: pt homeless Housing: Other Do you presently have visiting nurse or other home services: No Alcohol intake: current Alcohol intake frequency: 3 or more drinks per day Alcohol type: beer Patient Tobacco Use Status: Former Tobacco user Second Hand Smoke Exposure: No Advance Directives: No Advance Directives Information Provided: Yes service: No Physical Exam ED Vital Signs: Vital Signs - 24 hr 06/08/23 14:00 06/08/23 16:08 Temperature 98.4 F 98.9 F Pulse Rate 108 H 95 Respiratory Rate 20 16 Blood Pressure 101/66 98/62 Pulse Oximetry 96 93 Oxygen Delivery Method Room Air Room Air BMI result Body Mass Index 27.8 Const General: cooperative, healthy appearing, comfortable and no acute distress Orientation/consciousness: patient oriented x3 Limitations: no limitations HENMT Head: Yes normal to inspection Ears: hearing grossly normal bilaterally Eyes General: appearance normal, both eyes and all related structures Pupils: Equal, round and reactive pupils present Neck Neck: Yes normal visual inspection and Yes full ROM Chest Chest palpation & inspection: normal inspection of the chest Resp Effort & Inspection: normal respiratory effort Auscultation: clear to auscultation bilaterally Cardio Rate: regular rate Rhythm: regular rhythm Peripheral pulses: Peripheral pulses 2+ throughout GI Other: brown stool on exam-kinsey corona present Inspection: Yes normal to inspection Palpation (GI): Soft to palpation and nontender Back/Spine/Pelvis Thoracic/Lumbar Spine: thoracic and lumbar spine normal to inspection Skin General skin exam: no rashes or lesions noted Neuro General: patient oriented x3 and moves all extremities Cranial nerves: Yes Equal, round and reactive pupils present Cognition (Neuro): normal cognition Gait exam (Neuro): Normal gait present Extrem General: Yes normal to inspection and Yes edema (bilateral LE swelling-pitting. 2+DP/PT pulses ) Course Course Course Narrative: This is an RME: Additional HPI, ROS, PE not included below will be deferred to primary provider. This is a [id number]-male, with a hx of etoh abuse, presenting to the ER with complaints of BL leg swelling. Patient is a poor historian, last drink this morning. On examination, patient has 3+ bilateral pitting edema noted to bilateral lower extremities with some warmth. Vital signs stable. Patient denies any shortness of breath or chest pain. Plan: Labs, EKG, chest x-ray ordered Reevaluation(s) Reevaluation #1: Labs show macrocytic anemia, thrombocytopenia, elevated LFTs, hyponatremia, low albumin. This may be secondary to chronic alcohol. Occult stool negative for blood. Elevated BNP. Patient was consented for 1 unit of PRBC. Patient will be given Lasix post blood transfusion. Will be admitted for further management Medical Decision Making Medical Decision Making [facility] Narrative: 53-year-old male here with complaints of bilateral lower extremity swelling, weakness, fatigue and concern for dark stools. No complaints of abdominal pain, vomiting. No reports of chest pain or shortness of breath. Of note patient is currently a daily alcohol drinker and is currently homeless. On arrival patient a bilateral lower extremity swelling. Patient has no focal abdominal pain. VSS. Will check labs, CXR, EKG Differential Diagnosis Differential Diagnoses: The differential diagnosis associated with the presentation includes anemia, CHF, GIB Admission/Observation Consideration of admission/observation: Escalation of care including admission/observation considered Patient with anemia, congestive heart failure exacerbation who is currently homeless, no clear follow-up. Necessitating admission for further management Consult Healthcare Provider Management of the patient was discussed with: Hospitalist Spoke to Dr Rice who accepted admission for further management Lab Data [facility] Lab Attestation statement: I reviewed the patient's lab results. 06/08/23 14:13 06/08/23 14:13 Labs: Lab Results 06/08/23 06/08/23 06/08/23 Range/Units 14:13 14:13 14:13 WBC 8.9 (4.8-10.8) X10*3/uL RBC 1.84 L D (4.60-5.80) X10*6/uL Hgb 7.0 L* (14.0-18.0) g/dl Hct 20.4 L* (42.0-52.0) % MCV 110.9 H (80.0-98.0) fL MCH 38.0 H (27.0-33.0) pg MCHC 34.3 (31.0-36.0) g/dl RDW 19.5 H (11.0-16.0) % Plt Count 78 L D (160-400) X10*3/uL MPV 12.0 (9.4-12.4) fL Immature Gran % (Auto) 3.0 H (0.0-0.4) % Neut % (Auto) 74.2 H (45-73) % Lymph % (Auto) 11.2 L (20-40) % Cecil % (Auto) 10.4 (2-11) % Eos % (Auto) 0.6 (0-4) % Baso % (Auto) 0.6 (0-2) % Lymph # (Auto) 1.0 L (1.2-4.9) X10*3/uL Cecil # (Auto) 0.9 (0.1-1.2) X10*3/uL Eos # (Auto) 0.1 (0.0-0.4) X10*3/uL Baso # (Auto) 0.1 (0.0-0.2) X10*3/uL Abs Immat Gran (auto) 0.27 H (0.00-0.03) X10*3/uL Absolute Neuts (auto) 6.6 (2.0-8.3) x10*3/uL Absolute Nucleated RBC 0.000 (0.0-0.012) X10*3/uL Nucleated RBC % (auto) 0.0 (0.0-0.2) /100WBC PT (11.1-13.3) SEC INR (0.9-1.1) APTT (26.0-36.4) SEC Sodium 129 L (135-145) mmol/L Potassium 3.5 (3.3-5.1) mmol/L Chloride 101 (96-108) mmol/L Carbon Dioxide 18 L (22-29) mmol/L Anion Gap 14 (12-20) BUN 10 (9-16) mg/dL Creatinine 0.70 (0.5-1.4) mg/dL Estim Creat Clear Calc 106.8 Estimated GFR > 60 Random Glucose 114 (60-115) mg/dL Calcium 8.4 D (8.4-10.2) mg/dL Total Bilirubin 3.1 H (0.0-1.0) mg/dL Direct Bilirubin 2.1 H (0.0-0.5) mg/dL AST 81 H (5-37) U/L ALT 19 (0-40) U/L Alkaline Phosphatase 104 (39-117) U/L B-Natriuretic Peptide 162 H (<100) pg/mL Total Protein 7.6 (6.5-8.0) g/dL Albumin 2.1 L (3.5-5.0) g/dL Stool Occult Blood (NEGATIVE) Ethyl Alcohol 158 mg/dL Blood Type Antibody Screen Crossmatch 06/08/23 06/08/23 06/08/23 Range/Units 15:21 15:21 15:39 WBC (4.8-10.8) X10*3/uL RBC (4.60-5.80) X10*6/uL Hgb (14.0-18.0) g/dl Hct (42.0-52.0) % MCV (80.0-98.0) fL MCH (27.0-33.0) pg MCHC (31.0-36.0) g/dl RDW (11.0-16.0) % Plt Count (160-400) X10*3/uL MPV (9.4-12.4) fL Immature Gran % (Auto) (0.0-0.4) % Neut % (Auto) (45-73) % Lymph % (Auto) (20-40) % Cecil % (Auto) (2-11) % Eos % (Auto) (0-4) % Baso % (Auto) (0-2) % Lymph # (Auto) (1.2-4.9) X10*3/uL Cecil # (Auto) (0.1-1.2) X10*3/uL Eos # (Auto) (0.0-0.4) X10*3/uL Baso # (Auto) (0.0-0.2) X10*3/uL Abs Immat Gran (auto) (0.00-0.03) X10*3/uL Absolute Neuts (auto) (2.0-8.3) x10*3/uL Absolute Nucleated RBC (0.0-0.012) X10*3/uL Nucleated RBC % (auto) (0.0-0.2) /100WBC PT 21.8 H (11.1-13.3) SEC INR 1.8 H (0.9-1.1) APTT 32.4 (26.0-36.4) SEC Sodium (135-145) mmol/L Potassium (3.3-5.1) mmol/L Chloride (96-108) mmol/L Carbon Dioxide (22-29) mmol/L Anion Gap (12-20) BUN (9-16) mg/dL Creatinine (0.5-1.4) mg/dL Estim Creat Clear Calc Estimated GFR Random Glucose (60-115) mg/dL Calcium (8.4-10.2) mg/dL Total Bilirubin (0.0-1.0) mg/dL Direct Bilirubin (0.0-0.5) mg/dL AST (5-37) U/L ALT (0-40) U/L Alkaline Phosphatase (39-117) U/L B-Natriuretic Peptide (<100) pg/mL Total Protein (6.5-8.0) g/dL Albumin (3.5-5.0) g/dL Stool Occult Blood NEGATIVE (NEGATIVE) Ethyl Alcohol mg/dL Blood Type B Positive Antibody Screen NEGATIVE Crossmatch See Detail Independent Interpretation I performed an independent interpretation of an: EKG Interpretation: I independently reviewed the EKG which shows normal sinus rhythm with a rate of 85, normal UT, normal QRS, normal QT I indepedentely reviewed the chest x-ray and agree with the radiology report Radiology Impression Discussion of test interpretation with radiology: I have reviewed the radiologist's reading. Radiologist Impression: [address] [address] XRay Report Signed Patient: Charbel Delgado MR#: [id number] : 1970 Acct:[id number] Age/Sex: 53 / M ADM Date: 06/08/23 Loc: .ED Attending Dr: Ordering Physician: Grisel Craft NP Date of Service: 06/08/23 Procedure(s): XR chest 2V Accession Number(s): [id number] cc: Grisel Craft NP~ EXAMINATION: XR CHEST CLINICAL INFORMATION: Evaluate for failure. COMPARISON: 05/25/2023 chest radiograph. TECHNIQUE: 2 views of the chest were obtained. FINDINGS: Mild bibasilar linear markings are seen. The upper lung sánchez are clear. The heart and mediastinal structures are unremarkable. XR/XR chest 2V IMPRESSION: Mild bibasilar linear atelectasis versus scarring. No acute cardiopulmonary process. ? Discharge Plan Discharge Clinical Impression: Anemia, CHF (congestive heart failure) Patient Disposition: Admitted As Inpatient
[2023-06-08 14:19] LABS: MANUAL DIFF FLAG NO
[2023-06-08 14:23] LABS: Basophils Absolute Auto 0.1 X10*3/uL (0.0-0.2); Basophils Percent Auto 0.6 % (0-2); Eosinophils Absolute Auto 0.1 X10*3/uL (0.0-0.4); Eosinophils Percent Auto 0.6 % (0-4); Imm Gran Abs Auto 0.27 X10*3/uL (0.00-0.03); Lymphocytes Percent Auto 11.2 % (20-40); Mean Corpuscular HGB Conc 34.3 g/dl (31.0-36.0); Monocytes Absolute Auto 0.9 X10*3/uL (0.1-1.2); Monocytes Percent Auto 10.4 % (2-11); Neutrophils Absolute Auto 6.6 x10*3/uL (2.0-8.3); Neutrophils Percent Auto 74.2 % (45-73); Red Blood Count 1.84 X10*6/uL (4.60-5.80); Red Cell Distribution Width 19.5 % (11.0-16.0); White Blood Count 8.9 X10*3/uL (4.8-10.8)
[2023-06-08 14:24] LABS: Mean Corpuscular Volume 110.9 fL (80.0-98.0); Platelet Count 78 X10*3/uL (160-400)
[2023-06-08 14:29] LABS: Hematocrit 20.4 % (42.0-52.0)
[2023-06-08 14:37] LABS: Alanine Aminotransferase 19 U/L (0-40); Albumin Level 2.1 g/dL (3.5-5.0); Alkaline Phosphatase 104 U/L (39-117); Anion Gap 14 (12-20); Aspartate Amino Transferase 81 U/L (5-37); Bilirubin Direct 2.1 mg/dL (0.0-0.5); Bilirubin Total 3.1 mg/dL (0.0-1.0); Blood Urea Nitrogen 10 mg/dL (9-16); Calcium 8.4 mg/dL (8.4-10.2); Carbon Dioxide 18 mmol/L (22-29); Chloride 101 mmol/L (96-108); Creatinine Clr Calc Pharmacy 106.8; Estimated Glomerular Filt Rate > 60; Ethanol 158 mg/dL; Glucose Random 114 mg/dL (60-115); Potassium 3.5 mmol/L (3.3-5.1); Sodium 129 mmol/L (135-145); Total Protein 7.6 g/dL (6.5-8.0)
[2023-06-08 14:43] LABS: B Type Natriuretic Peptide 162 pg/mL (<100)
--- NOTE | 2023-06-08 15:30 | ECG_ITS ---
Test Reason : ANEMIA Blood Pressure : / mmHG Vent. Rate : 085 BPM Atrial Rate : 085 BPM P-R Int : 142 ms QRS Dur : 076 ms QT Int : 420 ms P-R-T Axes : 037 009 017 degrees QTc Int : 499 ms Normal sinus rhythm Prolonged QT Abnormal ECG No previous ECGs available Referred By: Grisel Hope Electronically Signed By:STEPHANIE JARA MD
[2023-06-08 15:33] LABS: INTERNATIONAL NORM RATIO 1.8 (0.9-1.1); Prothrombin Time 21.8 SEC (11.1-13.3)
[2023-06-08 15:35] LABS: Partial Thromboplastin Time 32.4 SEC (26.0-36.4)
[2023-06-08 15:48] LABS: OBS Int Ctl Valid YES; OBS1 NEGATIVE (NEGATIVE)
[2023-06-08] MEDS: PHENobarbitaL sodium 130 MG/ML IM ONCE 227.5 MG IM (16:26)
--- NOTE | 2023-06-08 16:30 | PHA.MEDREC ---
Pharmacy Consult ? Medication Reconciliation Pharmacy has completed the medication reconciliation. Patient reports only taking Tylenol when he has a headache. Isa Bustillos, EnedinaD
--- NOTE | 2023-06-08 16:44 | PM.IMHP ---
History of Present Illness Date of Service: 06/08/23 Chief Complaint: generalized weakness/leg edema 53-year-old gentleman with past medical history significant for alcohol dependence, presented to [facility] ED due to bilateral lower extremity swelling since he ran out of his Lasix, patient denied associated shortness of breath, no chest pain, no cough, no fever, no chills he complaining of generalized weakness and fatigue, he does complain of intermittent nausea, and diarrhea, dark colored stool, no fresh blood, denies epigastric pain, patient admits to drinking 2 beer daily, 2 nips,2 fire ball unable to quantify exactly how much he drinks, patient is homeless, in ED patient noted to hematocrit of 20.4 the dropped from hct 34 on February of 2023, sodium 129, albumin 2.1, INR 1.8 elevated total bili, chest x-ray showed mild basilar linear atelectasis versus scarring, no acute process, patient denies urinary symptoms of urgency or frequency. Review of Systems Review of Systems: General no headache no dizziness no fever chills. CVS no chest pain, no palpitation. Respiratory no cough no sob Gastrointestinal no nausea no vomiting, no abdominal pain Musculoskeletal no pain skin no rash PMFSH Medical History Alcohol abuse Surgical History No history of previous surgery Social History Household Members: None Household Members Other:: pt homeless Housing: Homeless Do you presently have visiting nurse or other home services: No Alcohol intake: current Alcohol intake frequency: 3 or more drinks per day Alcohol type: beer and hard liquor Patient Tobacco Use Status: Former Tobacco user Quit Date: 12 years ago Tobacco use type: Cigarette Second Hand Smoke Exposure: No Use of substances other than those prescribed or required for medical reasons: No Currently Displaying Signs/Symptoms of Drug Intoxication Withdrawal: No Any prior treatment program specific to substance use: No Have you been hit, kicked, punched, or otherwise hurt by someone within the past year? If so, by whom?: No Do you feel safe in your current relationship?: No Current Relationship Is there a partner from a previous relationship who is making you feel unsafe now?: No Are you made to feel afraid or neglected: No Advance Directives: No Advance Directives Information Provided: Yes Do you have thoughts of harming others: None Do you have a plan to hurt others: No Plan Recently lost weight without trying: Yes How much weight loss: 2-13 pounds Eating poorly because of decreased appetite: Yes Nutrition screen score: 4 Nutrition Risks: No Nutritional Risk service: No Meds Allergies Allergy/AdvReac Type Severity Reaction Status Date / Time No Known Allergies Allergy Verified 05/29/23 19:25 [No Known Allergies*] Active Medications: Current Medications Acetaminophen (Acetaminophen 325 Mg Tablet) 650 mg PO Q6H PRN PRN Reason: Pain, Mild (Pain Scale 1-3) Albumin Human (Kedbumin 25 %) 100 mls @ 100 mls/hr IV Q6H JOSE MANUEL Stop: 06/09/23 11:44 Melatonin (Melatonin 3 Mg Tablet) 3 mg PO BEDTIME PRN PRN Reason: Insomnia Ondansetron HCl (Ondansetron Hcl 4 Mg/2 Ml Vial) 4 mg IVPUSH Q8H PRN PRN Reason: Nausea and Vomiting Pantoprazole Sodium (Pantoprazole Sodium 40 Mg/10 Ml Vial) 40 mg IVPUSH BID [facility] Pharmacy Consult (Consult Rx Etoh Phenob Im/Po) 1 each MISCELLANE ONCE PRN; Protocol PRN Reason: Consult order Phenobarbital (Phenobarbital 15 Mg Tablet) 45 mg PO BID [facility]; Protocol Stop: 06/10/23 21:01 Phenobarbital (Phenobarbital 15 Mg Tablet) 15 mg PO BID [facility]; Protocol Stop: 06/12/23 21:01 Phenobarbital (Phenobarbital 15 Mg Tablet) 15 mg PO DAILY [facility]; Protocol Stop: 06/14/23 09:01 Phenobarbital Sodium (Phenobarbital Sodium 130 Mg/Ml Vial Im Q3hx2) 170.3 mg IM Q3H [facility]; Protocol Stop: 06/08/23 22:01 Phytonadione (Phytonadione (Vit K1) Oral 10 Mg/Ml Ampul) 5 mg PO DAILY [facility] Stop: 06/10/23 09:01 Sodium Chloride (0.9 % Sodium Chloride Flush 3 Ml Syringe) 3 ml IVFLUSH QSHIFT [facility] Home Medications Medication Instructions Recorded Confirmed Last Taken Type acetaminophen 325 mg tablet 650 mg PO Q6H PRN Headache 06/08/23 06/08/23 Unknown History Physical Exam Vital Signs and Narrative: Vital Signs: Last Vital Signs Temp 98.9 F 06/08/23 16:08 Pulse 95 06/08/23 16:08 Resp 16 06/08/23 16:08 BP 98/62 06/08/23 16:08 Pulse Ox 93 06/08/23 16:08 O2 Del Method Room Air 06/08/23 16:08 BMI result Body Mass Index 27.8 Const: Other: General awake alert, resting comfortably, in no acute distress. Icteric sclera Neck supple no JVD. CVS regular rate rhythm, Respiratory lungs clear to auscultation, no respiratory distress, no wheeze, no rhonchi. Gastrointestinal abdomen soft, distended,nontender, bowel sounds audible, no guarding , no rigidity. Extremities b/l LE pitting edema. Neuro nonfocal , no tremors Skin no rash psych appropriate affect Results Labs 06/08/23 14:13 06/08/23 14:13 Labs: Laboratory Results - last 24 hr 06/08/23 06/08/23 06/08/23 14:13 14:13 14:13 MCV 110.9 H MCH 38.0 H MCHC 34.3 RDW 19.5 H Plt Count 78 L D MPV 12.0 Immature Gran % (Auto) 3.0 H Neut % (Auto) 74.2 H Lymph % (Auto) 11.2 L Vernon % (Auto) 10.4 Eos % (Auto) 0.6 Baso % (Auto) 0.6 Lymph # (Auto) 1.0 L Vernon # (Auto) 0.9 Eos # (Auto) 0.1 Baso # (Auto) 0.1 Abs Immat Gran (auto) 0.27 H Absolute Neuts (auto) 6.6 Absolute Nucleated RBC 0.000 Nucleated RBC % (auto) 0.0 PT INR APTT Anion Gap 14 Estim Creat Clear Calc 106.8 Estimated GFR > 60 Random Glucose 114 Calcium 8.4 D Total Bilirubin 3.1 H Direct Bilirubin 2.1 H AST 81 H ALT 19 Alkaline Phosphatase 104 B-Natriuretic Peptide 162 H Total Protein 7.6 Albumin 2.1 L Stool Occult Blood Ethyl Alcohol 158 Blood Type Antibody Screen Crossmatch 06/08/23 06/08/23 06/08/23 15:21 15:21 15:39 MCV MCH MCHC RDW Plt Count MPV Immature Gran % (Auto) Neut % (Auto) Lymph % (Auto) Vernon % (Auto) Eos % (Auto) Baso % (Auto) Lymph # (Auto) Vernon # (Auto) Eos # (Auto) Baso # (Auto) Abs Immat Gran (auto) Absolute Neuts (auto) Absolute Nucleated RBC Nucleated RBC % (auto) PT 21.8 H INR 1.8 H APTT 32.4 Anion Gap Estim Creat Clear Calc Estimated GFR Random Glucose Calcium Total Bilirubin Direct Bilirubin AST ALT Alkaline Phosphatase B-Natriuretic Peptide Total Protein Albumin Stool Occult Blood NEGATIVE Ethyl Alcohol Blood Type B Positive Antibody Screen NEGATIVE Crossmatch See Detail Imaging Radiologist's Impressions: Impressions Chest X-Ray 06/08/23 15:40 IMPRESSION: Mild bibasilar linear atelectasis versus scarring. No acute cardiopulmonary process. Assessment and Plan (1) Anemia: Status: Acute Plan 53-year-old homeless male with longstanding history of alcohol abuse presented to [facility] due to bilateral lower extremity swelling, generalized weakness and dark colored stool patient noted to have significant anemia calm a hypoalbuminemia elevated INR will be admitted for alcohol dependence and high risk of withdrawal. # alcohol abuse with high risk for withdrawal placed on phenobarb protocol, thiamine, folic acid, seizure precautions Addiction Team consult # acute on chronic macrocytic anemia will check iron studies, ferritin, B12, folate, check stool guaiac, transfuse 1 unit of packed RBC , follow CBC, if stool guaiac positive will obtain GI consult IV Protonix b.i.d. # bilateral lower extremity edema likely due to hypoalbuminemia/anemia/ liver disease, no chf, no shortness of breath no PND no orthopnea, normal chest x-ray keep legs elevated/ IV albumin # mild hyponatremia sodium 129, likely beer potomania, good nutrition follow BMP # hypo magnesemia magnesium 1.3 will replete and follow labs # alcoholic liver disease elevated INR, low albumin , ascites suggestive of advanced liver disease , vitamin K 5 mg daily x3 days, strongly recommend to abstain from alcohol, outpatient GI follow-up no abdominal pain, no shortness of breath. DVT prophylaxis compression boots avoid anticoagulation due to anemia/thrombocytopenia. in my clinical judgment patient need two night inpatient stay for management of anemia, alcohol abuse and withdrawal on phenobarb protocol Time Spent With Patient Time: Total time managing care of this patient today ____ minutes. Quality Stroke Does the patient have a stroke diagnosis?: No VTE Prior VTE?: No VTE Risk Level:: Medical - moderate - high VTE Device Contraindication: N/A - Device Ordered VTE Drug Contraindication: Treatment Not Indicated
[2023-06-08 16:49] LABS: Amphetamine Screen Urine Not Detected (Not Detect); Barbiturates, Urine Not Detected (Not Detect); Benzodiazepines Screen Urine Not Detected (Not Detect); Cannabinoid Screen Urine Not Detected (Not Detect); Cocaine Screen Urine Not Detected (Not Detect); Fentanyl, urine Not Detected (Not Detect); Opiate Screen Urine Not Detected (Not Detect); Phencyclidine Screen Urine Not Detected (Not Detect)
[2023-06-08] MEDS: Phytonadione (Vit K1) Oral 10 MG/ML AMPUL 5 MG PO (17:14)
[2023-06-08] MEDS: Albumin Human 25 % 100 ML IV ×2 (17:25→21:45)
[2023-06-08 17:39] LABS: Magnesium 1.3 mg/dL (1.6-2.6)
[2023-06-08 18:19] LABS: Ferritin 1364 ng/mL (20-250)
[2023-06-08 18:44] LABS: Iron 88 mcg/dL (45-160); Percent Iron Saturation 78 % (15-50); Total Iron Binding Capacity 113 mcg/dL (228-428); Unsaturated Iron Binding < 25 ug/dL
[2023-06-08] MEDS: Magnesium Sulfate/H2O 2 GM/50 ML PIGGYBACK IV (18:47)
[2023-06-08] MEDS: PHENobarbitaL sodium 130 MG/ML VIAL IM Q3Hx2 170.3 MG IM ×2 (18:48→21:42)
--- NOTE | 2023-06-08 19:22 | PC.NURSE ---
assumed care of pt at 1900 - pt resting comfortably on stretcher. blood transfusion complete, vital signs updated. no signs of adverse reactions. pt has no current complaints. room air o2 was 88% so pt placed on 2L O2 nasal cannula. denies sob or pain. call [facility] within reach. pt on school lunch monitor will ctm
[2023-06-08] MEDS: Furosemide 20 MG/2 ML VIAL IVPUSH (19:37)
--- NOTE | 2023-06-08 20:31 | PC.NURSE ---
attempted to call report x 2 to c RN with no answer. first attempt @1944. second attempt @20:30. waiting for call back
[2023-06-08] MEDS: 0.9 % Sodium Chloride Flush 3 ML SYRINGE IVFLUSH (21:43)
[2023-06-08] MEDS: Pantoprazole Sodium 40 MG/10 ML VIAL IVPUSH (21:43)
[2023-06-09 03:18] VITALS: BP 111/58; PULSE 102; RESP 18; TEMP 37.2; O2SAT 93
[2023-06-09] MEDS: Albumin Human 25 % 100 ML IV ×2 (04:02→09:10)
[2023-06-09 07:25] VITALS: BP 92/53; PULSE 93; RESP 20; TEMP 37.1; O2SAT 91
[2023-06-09 08:19] LABS: Hematocrit 23.7 % (42.0-52.0); Hemoglobin 7.9 g/dl (14.0-18.0); Mean Corpuscular HGB Conc 33.3 g/dl (31.0-36.0); Mean Corpuscular Hemoglobin 36.1 pg (27.0-33.0); Mean Corpuscular Volume 108.2 fL (80.0-98.0); Mean Platelet Volume 12.8 fL (9.4-12.4); Red Blood Count 2.19 X10*6/uL (4.60-5.80); Red Cell Distribution Width 19.7 % (11.0-16.0); White Blood Count 5.7 X10*3/uL (4.8-10.8)
[2023-06-09 08:20] LABS: Platelet Count 55 X10*3/uL (160-400)
[2023-06-09 08:35] LABS: Anion Gap 13 (12-20); Blood Urea Nitrogen 10 mg/dL (9-16); Carbon Dioxide 21 mmol/L (22-29); Chloride 101 mmol/L (96-108); Creatinine Clr Calc Pharmacy 99.9; Estimated Glomerular Filt Rate > 60; Glucose Random 94 mg/dL (60-115); Potassium 3.1 mmol/L (3.3-5.1); Sodium 132 mmol/L (135-145)
[2023-06-09 09:01] LABS: Magnesium 1.5 mg/dL (1.6-2.6)
[2023-06-09 09:07] LABS: Folate 5.6 ng/mL (> or = 4.0); Vitamin B12 1302 pg/mL (200-900)
[2023-06-09] MEDS: PHENobarbitaL 15 MG TABLET 45 MG PO ×2 (09:09→20:19)
[2023-06-09] MEDS: Thiamine HCL 100 MG TABLET PO (09:10)
[2023-06-09] MEDS: 0.9 % Sodium Chloride Flush 3 ML SYRINGE IVFLUSH ×3 (09:10→20:19)
[2023-06-09] MEDS: Magnesium Oxide 400 MG TABLET PO (09:10)
[2023-06-09] MEDS: Folic Acid 1 MG TABLET PO (09:10)
[2023-06-09] MEDS: Pantoprazole Sodium 40 MG/10 ML VIAL IVPUSH (09:10)
[2023-06-09] MEDS: Phytonadione (Vit K1) Oral 10 MG/ML AMPUL 5 MG PO (11:30)
[2023-06-09 11:37] VITALS: BP 106/65; PULSE 105; RESP 18; TEMP 38.8; O2SAT 91
[2023-06-09] MEDS: Acetaminophen 325 MG TABLET 650 MG PO (12:33)
--- NOTE | 2023-06-09 14:44 | HO.PM.IMPN ---
Subjective Subjective Date of Service: 06/09/23 Interval History: sitting comfortably in bed offers no acute complaints, denies nausea, no vomiting, no abdominal pain, no hematemesis, no melena, no acute overnight events. no fevers, no chills. Review of Systems all other system reviewed and negative Physical Exam Vital Signs: Vital Signs: Last Vital Signs Temp 101.9 F H 06/09/23 11:37 Pulse 105 H 06/09/23 11:37 Resp 18 06/09/23 11:37 BP 106/65 06/09/23 11:37 Pulse Ox 91 L 06/09/23 11:37 O2 Del Method Nasal Cannula 06/09/23 11:37 O2 Flow Rate 2.5 06/09/23 11:37 BMI result Body Mass Index 22.4 Const: Other: General? awake alert, resting comfortably, in no acute distress.? Icteric sclera Neck? supple no JVD. CVS? regular rate rhythm, Respiratory lungs clear to auscultation, no respiratory distress, no wheeze, no rhonchi. Gastrointestinal abdomen soft,? distended,nontender, bowel sounds audible, no guarding , no rigidity. Extremities b/l LE pitting edema. Neuro nonfocal , no tremors Skin no rash psych appropriate affect Objective Data Active Medications Acetaminophen (Acetaminophen 325 Mg Tablet) 650 mg PO Q6H PRN PRN Reason: Pain, Mild (Pain Scale 1-3) Last Admin: 06/09/23 12:33 Dose: 650 mg Documented By: LIZABETH Folic Acid (Folic Acid 1 Mg Tablet) 1 mg PO DAILY [facility] Last Admin: 06/09/23 09:10 Dose: 1 mg Documented By: LIZABETH Magnesium Sulfate (Magnesium Sulfate/H2o) 2 gm in 50 mls @ 25 mls/hr IV ONCE ONE Stop: 06/09/23 16:41 Magnesium Oxide (Magnesium Oxide 400 Mg Tablet) 400 mg PO DAILY [facility] Last Admin: 06/09/23 09:10 Dose: 400 mg Documented By: LIZABETH Melatonin (Melatonin 3 Mg Tablet) 3 mg PO BEDTIME PRN PRN Reason: Insomnia Ondansetron HCl (Ondansetron Hcl 4 Mg/2 Ml Vial) 4 mg IVPUSH Q8H PRN PRN Reason: Nausea and Vomiting Pantoprazole Sodium (Pantoprazole Sodium 40 Mg/10 Ml Vial) 40 mg IVPUSH BID [facility] Last Admin: 06/09/23 09:10 Dose: 40 mg Documented By: LIZABETH Pharmacy Consult (Consult Rx Etoh Phenob Im/Po) 1 each MISCELLANE ONCE PRN; Protocol PRN Reason: Consult order Phenobarbital (Phenobarbital 15 Mg Tablet) 45 mg PO BID [facility]; Protocol Stop: 06/10/23 21:01 Last Admin: 06/09/23 09:09 Dose: 45 mg Documented By: LIZABETH Phenobarbital (Phenobarbital 15 Mg Tablet) 15 mg PO BID [facility]; Protocol Stop: 06/12/23 21:01 Phenobarbital (Phenobarbital 15 Mg Tablet) 15 mg PO DAILY [facility]; Protocol Stop: 06/14/23 09:01 Phytonadione (Phytonadione (Vit K1) Oral 10 Mg/Ml Ampul) 5 mg PO DAILY [facility] Stop: 06/10/23 09:01 Last Admin: 06/09/23 11:30 Dose: 5 mg Documented By: LIZABETH Sodium Chloride (0.9 % Sodium Chloride Flush 3 Ml Syringe) 3 ml IVFLUSH QSHIFT [facility] Last Admin: 06/09/23 09:10 Dose: 3 ml Documented By: LIZABETH Thiamine HCl (Thiamine Hcl 100 Mg Tablet) 100 mg PO DAILY [facility] Last Admin: 06/09/23 09:10 Dose: 100 mg Documented By: LIZABETH Labs 06/09/23 07:13 06/09/23 07:13 Labs: Laboratory Results - last 24 hr 06/08/23 06/08/23 06/08/23 14:13 14:13 15:21 MCV MCH MCHC RDW Plt Count MPV Absolute Nucleated RBC Nucleated RBC % (auto) Smear Path Review SEE NOTE PT 21.8 H INR 1.8 H APTT 32.4 Anion Gap Estim Creat Clear Calc Estimated GFR Random Glucose Calcium Magnesium 1.3 L* Iron 88 TIBC 113 L % Saturation 78 H Unsat Iron Binding < 25 Ferritin 1364 H Vitamin B12 Folate Stool Occult Blood Urine Opiates Screen Urine Fentanyl Screen Ur Barbiturates Screen Ur Phencyclidine Scrn Ur Amphetamines Screen U Benzodiazepines Scrn Urine Cocaine Screen U Marijuana (THC) Screen Blood Type Antibody Screen Crossmatch 06/08/23 06/08/23 06/08/23 15:21 15:39 16:13 MCV MCH MCHC RDW Plt Count MPV Absolute Nucleated RBC Nucleated RBC % (auto) Smear Path Review PT INR APTT Anion Gap Estim Creat Clear Calc Estimated GFR Random Glucose Calcium Magnesium Iron TIBC % Saturation Unsat Iron Binding Ferritin Vitamin B12 Folate Stool Occult Blood NEGATIVE Urine Opiates Screen Not Detected Urine Fentanyl Screen Not Detected Ur Barbiturates Screen Not Detected Ur Phencyclidine Scrn Not Detected Ur Amphetamines Screen Not Detected U Benzodiazepines Scrn Not Detected Urine Cocaine Screen Not Detected U Marijuana (THC) Screen Not Detected Blood Type B Positive Antibody Screen NEGATIVE Crossmatch See Detail 06/09/23 06/09/23 06/09/23 07:13 07:13 07:13 MCV 108.2 H MCH 36.1 H MCHC 33.3 RDW 19.7 H Plt Count 55 L D MPV 12.8 H Absolute Nucleated RBC 0.000 Nucleated RBC % (auto) 0.0 Smear Path Review PT INR APTT Anion Gap 13 Estim Creat Clear Calc 99.9 Estimated GFR > 60 Random Glucose 94 Calcium 8.0 L Magnesium Iron TIBC % Saturation Unsat Iron Binding Ferritin Vitamin B12 1302 H Folate 5.6 Stool Occult Blood Urine Opiates Screen Urine Fentanyl Screen Ur Barbiturates Screen Ur Phencyclidine Scrn Ur Amphetamines Screen U Benzodiazepines Scrn Urine Cocaine Screen U Marijuana (THC) Screen Blood Type Antibody Screen Crossmatch 06/09/23 08:38 MCV MCH MCHC RDW Plt Count MPV Absolute Nucleated RBC Nucleated RBC % (auto) Smear Path Review PT INR APTT Anion Gap Estim Creat Clear Calc Estimated GFR Random Glucose Calcium Magnesium 1.5 L Iron TIBC % Saturation Unsat Iron Binding Ferritin Vitamin B12 Folate Stool Occult Blood Urine Opiates Screen Urine Fentanyl Screen Ur Barbiturates Screen Ur Phencyclidine Scrn Ur Amphetamines Screen U Benzodiazepines Scrn Urine Cocaine Screen U Marijuana (THC) Screen Blood Type Antibody Screen Crossmatch Assessment and Plan (1) Acute on chronic anemia: Status: Acute (2) Alcoholic liver disease: Status: Acute (3) Alcohol dependence with withdrawal: Status: Acute Plan 53-year-old? homeless male with longstanding history of alcohol abuse presented to [facility] due to bilateral lower extremity swelling, generalized weakness and dark colored stool patient noted to have significant anemia calm a hypoalbuminemia elevated INR will be admitted for alcohol dependence and high risk of withdrawal. # alcohol abuse with high risk for withdrawal ? continue phenobarb protocol, thiamine, folic acid, seizure? precautions ? Addiction Team consult #? acute on chronic macrocytic anemia ? iron studies, ferritin, B12, folate, all within normal range, stool guaiac negative, s/p 1 unit of packed RBC , hematocrit improved to 23.7 with a hemoglobin 7.9 likely anemia related to liver disease, DC IV Protonix placed on oral ppi ?# bilateral lower extremity edema likely due to hypoalbuminemia/anemia/ liver disease, ? ? no chf, no shortness of breath no PND no orthopnea, normal chest x-ray ? ? keep legs elevated/s/p IV albumin/ensure # mild hyponatremia sodium 129, improved to 132, likely beer potomania, good nutrition follow BMP #? hypo magnesemia magnesium 1.3 improved 1.5 continue magnesium replacement and follow labs ?# alcoholic liver disease ? ? elevated INR, low albumin , ascites suggestive? of advanced liver disease , vitamin K 5 mg daily x3 days, strongly recommend to abstain from alcohol, outpatient GI follow-up ?? no abdominal pain, no shortness of breath. ?DVT prophylaxis compression boots avoid anticoagulation due to anemia/thrombocytopenia. ?in my clinical judgment patient need two night inpatient stay for management of anemia, alcohol abuse and withdrawal on phenobarb protocol Time Spent With Patient Time: Total time managing care of this patient today ____ minutes. Quality Stroke Does the patient have a stroke diagnosis?: No VTE Prior VTE?: No VTE Risk Level:: Medical - moderate - high VTE Device Contraindication: N/A - Device Ordered VTE Drug Contraindication: Treatment Not Indicated
--- NOTE | 2023-06-09 14:49 | MHC.CM.PN ---
Pt admitted with alcohol dependence and withdrawal. Pt reports homelessness, he states he lives [place] [address] [place] a [place]. D/C plan to return to being homeless. CM offered to assist in finding a snf or provide other resources and pt declined. No HCP, no PCP, no vax. Pt states he will walk out of hospital upon discharge and will not need transportation.
[2023-06-09] MEDS: Potassium Chloride ER 20 MEQ TAB.ER.PRT 40 MEQ PO (14:52)
[2023-06-09] MEDS: Magnesium Sulfate/H2O 2 GM/50 ML PIGGYBACK IV (14:52)
--- NOTE | 2023-06-09 15:15 | PC.NURSE ---
Assumed care of patient at this time.
--- NOTE | 2023-06-09 15:57 | MHC.RECOVRN ---
Met with pt in 461 after consult placed to Addiction Medicine. Pt admitted [place] [facility] for acute on chronic anemia, alcohol use, and high risk of withdrawal after presenting to the ED for bilateral lower extremity swelling, generalized weakness and dark colored stool. Pt sitting in bed, awake, alert, easily engages in conversation, somewhat irritated as he has been asking for help with a shower to no avail. Pt reports drinking alcohol, 2 25 oz beers and at least 1 nip of Fireball daily x 40 years. Pt reports one ATS admission years ago, denies other tx for AUD. Pt is not currently interested in decreasing or abstaining from alcohol. Pt provided with written resources as well as t/w contact information if questions or concerns arise. Denies questions or concerns. Namrata Lindo APRN, aware.
[2023-06-09 16:00] VITALS: BP 94/60; PULSE 100; RESP 17; TEMP 36.7; O2SAT 93
--- NOTE | 2023-06-09 17:04 | PM.EVENT ---
Event Note Date of Service: 06/09/23 Event Note: Addiction consult placed for patient Seen by completion manager. Declined supports, information or referrals. Please see RN note for additional details Time Spent With Patient Time: Total time managing care of this patient today ____ minutes.
[2023-06-09 20:00] VITALS: BP 102/62; PULSE 88; RESP 18; TEMP 37.2; O2SAT 94
[2023-06-09] MEDS: Melatonin 3 MG TABLET PO (20:19)
[2023-06-09 23:35] VITALS: BP 102/56; PULSE 105; RESP 18; TEMP 37.2; O2SAT 92
[2023-06-10] VITALS (7 sets, daily range): BP systolic 90–114; BP diastolic 51–70; PULSE 92–113; RESP 18–20; TEMP 36.3–37.7; O2SAT 94–95
[2023-06-10] MEDS: Omeprazole 20 MG CAPSULE.DR PO (05:51)
[2023-06-10 07:16] LABS: Anion Gap 14 (12-20); Blood Urea Nitrogen 10 mg/dL (9-16); Calcium 8.3 mg/dL (8.4-10.2); Carbon Dioxide 22 mmol/L (22-29); Chloride 100 mmol/L (96-108); Creatinine Clr Calc Pharmacy 102.9; Estimated Glomerular Filt Rate > 60; Glucose Random 103 mg/dL (60-115); Magnesium 1.9 mg/dL (1.6-2.6); Potassium 3.5 mmol/L (3.3-5.1); Sodium 132 mmol/L (135-145)
[2023-06-10] MEDS: Folic Acid 1 MG TABLET PO (08:36)
[2023-06-10] MEDS: Magnesium Oxide 400 MG TABLET PO (08:36)
[2023-06-10] MEDS: 0.9 % Sodium Chloride Flush 3 ML SYRINGE IVFLUSH ×3 (08:36→21:30)
[2023-06-10] MEDS: Thiamine HCL 100 MG TABLET PO (08:36)
[2023-06-10] MEDS: PHENobarbitaL 15 MG TABLET 45 MG PO (08:37)
[2023-06-10] MEDS: Phytonadione (Vit K1) Oral 10 MG/ML AMPUL 5 MG PO (08:37)
--- NOTE | 2023-06-10 14:27 | P.PNIM_ITS ---
Subjective Subjective Date of Service: 06/10/23 Interval History: resting comfortably offers no acute complaints tolerating diet, no nausea, no vomiting, no abdominal pain or diarrhea, does not want to quit alcohol. Review of Systems all other system reviewed and negative. Physical Exam Vital Signs: Vital Signs: Last Vital Signs Temp 98.9 F 06/10/23 11:18 Pulse 113 H 06/10/23 11:18 Resp 20 06/10/23 11:18 BP 97/69 06/10/23 11:18 Pulse Ox 94 06/10/23 11:18 O2 Del Method Nasal Cannula 06/10/23 11:18 O2 Flow Rate 2 06/10/23 11:18 BMI result Body Mass Index 22.4 Const: Other: General? awake alert, resting comfortably, in no acute distress.? Icteric sclera Neck? supple no JVD. CVS? regular rate rhythm, Respiratory lungs clear to auscultation, no respiratory distress, no wheeze, no rhonchi. Gastrointestinal abdomen soft,? distended,non tender, bowel sounds audible, no guarding , no rigidity. Extremities edema improved. Neuro nonfocal , no tremors Skin no rash psych appropriate affect Objective Data Active Medications Acetaminophen (Acetaminophen 325 Mg Tablet) 650 mg PO Q6H PRN PRN Reason: Pain, Mild (Pain Scale 1-3) Last Admin: 06/09/23 12:33 Dose: 650 mg Documented By: LIZABETH Folic Acid (Folic Acid 1 Mg Tablet) 1 mg PO DAILY [facility] Last Admin: 06/10/23 08:36 Dose: 1 mg Documented By: LUCRECIA Magnesium Oxide (Magnesium Oxide 400 Mg Tablet) 400 mg PO DAILY [facility] Last Admin: 06/10/23 08:36 Dose: 400 mg Documented By: LUCRECIA Melatonin (Melatonin 3 Mg Tablet) 3 mg PO BEDTIME PRN PRN Reason: Insomnia Last Admin: 06/09/23 20:19 Dose: 3 mg Documented By: JOANNE Omeprazole (Omeprazole 20 Mg Capsule.) 20 mg PO DAILY@0630 [facility] Last Admin: 06/10/23 05:51 Dose: 20 mg Documented By: BALDO Ondansetron HCl (Ondansetron Hcl 4 Mg/2 Ml Vial) 4 mg IVPUSH Q8H PRN PRN Reason: Nausea and Vomiting Pharmacy Consult (Consult Rx Etoh Phenob Im/Po) 1 each MISCELLANE ONCE PRN; Protocol PRN Reason: Consult order Phenobarbital (Phenobarbital 15 Mg Tablet) 45 mg PO BID [facility]; Protocol Stop: 06/10/23 21:01 Last Admin: 06/10/23 08:37 Dose: 45 mg Documented By: LUCRECIA Phenobarbital (Phenobarbital 15 Mg Tablet) 15 mg PO BID [facility]; Protocol Stop: 06/12/23 21:01 Phenobarbital (Phenobarbital 15 Mg Tablet) 15 mg PO DAILY [facility]; Protocol Stop: 06/14/23 09:01 Sodium Chloride (0.9 % Sodium Chloride Flush 3 Ml Syringe) 3 ml IVFLUSH QSHIFT [facility] Last Admin: 06/10/23 08:36 Dose: 3 ml Documented By: LUCRECIA Thiamine HCl (Thiamine Hcl 100 Mg Tablet) 100 mg PO DAILY [facility] Last Admin: 06/10/23 08:36 Dose: 100 mg Documented By: LUCRECIA Labs 06/09/23 07:13 06/10/23 06:20 Labs: Laboratory Results - last 24 hr 06/10/23 06:20 Anion Gap 14 Estim Creat Clear Calc 102.9 Estimated GFR > 60 Random Glucose 103 Calcium 8.3 L Magnesium 1.9 Assessment and Plan (1) Acute on chronic anemia: Status: Acute (2) Alcoholic liver disease: Status: Acute (3) Alcohol dependence with withdrawal: Status: Acute Plan 53-year-old? homeless male with longstanding history of alcohol abuse presented to [facility] due to bilateral lower extremity swelling, generalized weakness and dark colored stool patient noted to have significant anemia calm a hypoalbuminemia elevated INR will be admitted for alcohol dependence and high risk of withdrawal. # alcohol abuse with high risk for withdrawal ? continue phenobarb protocol, thiamine, folic acid, seizure? precautions ? seen by addiction team patient not ready to quit alcohol, again spoke with patient regarding consequences of continued alcohol. encourage out of bed to chair and ambulation CM offered shoulder however patient declined, patient is homeless. #? acute on chronic macrocytic anemia ? iron studies, ferritin, B12, folate, all within normal range, stool guaiac negative, s/p 1 unit of packed RBC , hematocrit improved to 23.7 with a hemoglobin 7.9 likely anemia related to liver disease, on oral ppi. ?# bilateral lower extremity edema likely due to hypoalbuminemia/anemia/ liver disease, ? ? no chf, no shortness of breath no PND no orthopnea, normal chest x-ray ? ? edema improved,s/p IV albumin/ensure # mild hyponatremia sodium 129, improved to 132, likely beer potomania, good nutrition follow BMP #? hypo magnesemia magnesium 1.3 on admission improved 1.9 with replacementi ?# alcoholic liver disease ? ? elevated INR, low albumin , ascites suggestive? of advanced liver disease , vitamin K 5 mg daily x3 days, strongly recommend to abstain from alcohol, outpatient GI follow-up ?? no abdominal pain, no shortness of breath. ?DVT prophylaxis compression boots avoid anticoagulation due to anemia/thrombocytopenia. ?in my clinical judgment patient need continue inpatient stay for management of anemia, alcohol abuse and withdrawal on phenobarb protocol Time Spent With Patient Time: Total time managing care of this patient today ____ minutes. Quality Stroke Does the patient have a stroke diagnosis?: No VTE Prior VTE?: No VTE Risk Level:: Medical - moderate - high VTE Device Contraindication: N/A - Device Ordered VTE Drug Contraindication: Treatment Not Indicated
[2023-06-10] MEDS: Acetaminophen 325 MG TABLET 650 MG PO (16:01)
[2023-06-11 04:00] VITALS: BP 112/68; PULSE 100; RESP 18; TEMP 37.1; O2SAT 94
[2023-06-11] MEDS: Omeprazole 20 MG CAPSULE.DR PO (05:49)
[2023-06-11 07:17] VITALS: BP 113/70; PULSE 102; RESP 20; TEMP 37; O2SAT 95
[2023-06-11] MEDS: PHENobarbitaL 15 MG TABLET PO (08:45)
[2023-06-11] MEDS: Folic Acid 1 MG TABLET PO (08:45)
[2023-06-11] MEDS: Thiamine HCL 100 MG TABLET PO (08:45)
[2023-06-11] MEDS: Magnesium Oxide 400 MG TABLET PO (08:45)
[2023-06-11] MEDS: 0.9 % Sodium Chloride Flush 3 ML SYRINGE IVFLUSH (08:45)
--- NOTE | 2023-06-11 10:00 | P.DS_ITS ---
DS: Providers Provider Date of Service: 06/12/23 Date of admission: 06/08/23 16:36 Primary care physician: None Physician Consults: 06/08/23 17:36 Addiction Medicine Routine Consulting Provider: Addiction Covering Reason for consultation: etoh Has provider been notified: No DS: Diagnosis Discharge Diagnosis (1) Acute on chronic anemia: Status: Acute (2) Alcoholic liver disease: Status: Acute (3) Alcohol dependence with withdrawal: Status: Acute DS: Summary Hospital Course Hospital Course: Date of Service: 06/08/23 Chief Complaint:? generalized weakness/leg edema ?53-year-old gentleman with past medical history significant for alcohol dependence, presented to [place] ED due to bilateral lower extremity swelling since he ran out of his Lasix, patient denied associated shortness of breath, no chest pain, no cough, no fever, no chills he complaining of generalized weakness and fatigue, he does complain of intermittent nausea, and diarrhea, dark colored stool, no fresh blood, denies epigastric pain, patient admits to drinking 2? beer daily, 2 nips,2 fire ball? unable to quantify exactly how much he drinks, patient is homeless, in ED patient noted to hematocrit of 20.4 the dropped from hct 34 on February of 2023, sodium 129, albumin 2.1, INR 1.8 elevated total bili, chest x-ray showed mild basilar linear atelectasis versus scarring, no acute process,? patient denies urinary symptoms of urgency or frequency. 53-year-old? homeless male with longstanding history of alcohol abuse presented to [facility] due to bilateral lower extremity swelling, generalized weakness and dark colored stool patient noted to have significant anemia calm a hypoalbuminemia elevated INR will be admitted for alcohol dependence and high risk of withdrawal. # alcohol abuse with high risk for withdrawal, admitted to medical floor treated with phenobarb protocol, thiamine, folic acid, seen by addiction team however patient declined help since he admitted that he is not ready to quit alcohol, patient also noted to have acute on chronic macrocytic anemia, iron studies, ferritin, B12, folate, all within normal range, stool guaiac negative, s/p? 1 unit of packed RBC , hematocrit improved to 23.7 with hemoglobin 7.9? likely anemia related to liver disease, patient strongly recommended to abstain from alcohol due to alcoholic liver disease with elevated INR, low albumin and ascites suggestive of advanced liver disease patient treated with vitamin K 5 mg 3 days however patient wishes to leave hospital against medical advice because he wishes to continue drinking patient showed understanding and repeated the consequences of continued drinking including . ?# bilateral lower extremity edema likely due to hypoalbuminemia/anemia/ liver disease, no chf, no shortness of breath no PND no orthopnea, normal chest x-ray, edema improved after IV albumin and high-protein diet. # mild hyponatremia sodium 129, improved to 132, likely beer potomania, recommended abstinence from alcohol #? hypo magnesemia magnesium 1.3 ? on admission improved 1.9 with replacementi Time Spent with Patient Time attestation: Total time managing care of this patient today ____ minutes. Discharge coordination time: Greater than 30 minutes Quality: Safe Use of Opioids Does Pt have an Active Cancer Diagnosis on the Problem List?: No Quality: Stroke Does the patient have a stroke diagnosis?: No Physical Exam Vital Signs: Vital Signs: Last Vital Signs Temp 98.6 F 06/11/23 07:17 Pulse 102 H 06/11/23 07:17 Resp 20 06/11/23 07:17 BP 113/70 06/11/23 07:17 Pulse Ox 95 06/11/23 07:17 O2 Del Method Nasal Cannula 06/11/23 07:17 O2 Flow Rate 3 06/11/23 07:17 BMI result Body Mass Index 22.4 Const: Other: General? awake alert x3, resting comfortably, in no acute distress.? Icteric sclera Neck? supple no JVD. CVS? regular rate rhythm, Respiratory lungs clear to auscultation, no respiratory distress, no wheeze, no rhonchi. Gastrointestinal abdomen soft,? distended,non tender, bowel sounds audible, no guarding , no rigidity. Extremities? edema improved. Neuro nonfocal , no tremors, unsteady gait Skin no rash psych appropriate affect DS: Data Data Completed and Pending Completed studies during hospitalization [Text1]: Procedures Detoxification Services for Substance Abuse Treatment (10/05/22) Discharge Plan Discharge Anticipated Discharge Date/Time: 06/11/23 09:55 Patient Disposition: Left Against Medical Advice Discharge Diagnosis: alcohol abuse and withdrawal acute on chronic macrocytic anemia hyponatremia hypo magnesemia alcohol liver disease Referrals: Physician,None [Primary Care Provider] - 1 Week Discharge Medications: Continued acetaminophen 325 mg Tablet 650 mg PO Q6H PRN (Reason: Headache) Discharge Orders: Discharge Order (Routine); Ordered 06/11/23 Ordered By: Mariel Rice Diet: Advance to usual diet Activity on Discharge: As tolerated Care Plan Goals: alcohol abuse patient seen by Addiction Team not ready to quit drinking, unsteady gait but wishes to leave against medical advice strongly recommend to abstain from alcohol patient made aware of liver disease Health Concerns: alcohol abuse Plan of Treatment: outpatient follow-up with up with primary care physician Assessment: as above Discharge Date/Time: 06/11/23 10:15
== END 2023-06-11 10:15 | disposition left against medical advice (07) | DRG 663 ==
LOC: HO.ED 16:04 → HO.EDOVER 16:44 → HO.IMC 19:34
PROVIDERS: Nurse Practitioner Family; Physician Assistant Medical; Admitting Provider Hospitalist; Emergency Provider Emergency Medicine Emergency Medical Services; Visit Provider Hospitalist
DX: D53.9 Nutritional anemia, unspecified (principal); R18.8 Other ascites; D69.59 Other secondary thrombocytopenia; E87.1 Hypo-osmolality and hyponatremia; F10.20 Alcohol dependence, uncomplicated; D63.8 Anemia in other chronic diseases classified elsewhere; E88.09 Other disorders of plasma-protein metabolism, not elsewhere classified; K70.9 Alcoholic liver disease, unspecified; E83.42 Hypomagnesemia; T50.1X6A Underdosing of loop [high-ceiling] diuretics, initial encounter; Y90.6 Blood alcohol level of 120-199 mg/100 ml; Z59.02 Unsheltered homelessness; Z87.891 Personal history of nicotine dependence; Z79.899 Other long term (current) drug therapy
CPT/HCPCS: 36415; 71046; 80048; 80076; 80307; 82272; 82607; 82728; 82746; 83540; 83735; 83880; 85025; 85027; 85610; 85730; 86850; 86900; 86901; 86923; 93005; 99219; 99285; J1940; J2560; J3475; P9016; P9047

== ENCOUNTER → 2023-06-08 15:30 | Outpatient (BNV) | payer MEDICAID, SELFPAY | PROVIDERS: Admitting Provider Hospitalist; Emergency Provider Emergency Medicine Emergency Medical Services; Visit Provider Internal Medicine Cardiovascular Disease | DX: I45.81 Long QT syndrome (principal) | CPT/HCPCS: 93010 ==

== ENCOUNTER → 2023-06-08 16:36 | Outpatient (BNV) | payer MEDICAID, SELFPAY | PROVIDERS: Admitting Provider Hospitalist; Emergency Provider Emergency Medicine Emergency Medical Services; Visit Provider Hospitalist | DX: K70.9 Alcoholic liver disease, unspecified (principal); F10.239 Alcohol dependence with withdrawal, unspecified; D64.9 Anemia, unspecified | CPT/HCPCS: 99222; 99231; 99232; 99239 ==

== ENCOUNTER 2023-06-13 17:35 | Emergency (ER) | payer MEDICAID, SELFPAY ==
[2023-06-13 17:54] VITALS: BP 120/72; BP 124/70; PULSE 110; RESP 20; TEMP 36.7; O2SAT 93; BMI 19.4
--- NOTE | 2023-06-13 17:58 | PHA.MEDREC ---
Pharmacy Consult ? Medication Reconciliation Pharmacy has completed the medication reconciliation. Patient left AMA on 06/11/23, med rec completed by me on that admission. No new medications. Isa Bustillos, PharmD
[2023-06-13 18:43] LABS: MANUAL DIFF FLAG NO
[2023-06-13 19:02] LABS: Alanine Aminotransferase 18 U/L (0-40); Albumin Level 2.4 g/dL (3.5-5.0); Alkaline Phosphatase 102 U/L (39-117); Anion Gap 14 (12-20); Aspartate Amino Transferase 67 U/L (5-37); Bilirubin Total 2.3 mg/dL (0.0-1.0); Blood Urea Nitrogen 13 mg/dL (9-16); Calcium 8.6 mg/dL (8.4-10.2); Carbon Dioxide 19 mmol/L (22-29); Chloride 99 mmol/L (96-108); Creatinine Clr Calc Pharmacy 87.8; Estimated Glomerular Filt Rate > 60; Ethanol 139 mg/dL; Glucose Random 117 mg/dL (60-115); Lipase 113 U/L (8-78); Potassium 4.1 mmol/L (3.3-5.1); Sodium 128 mmol/L (135-145); Total Protein 7.1 g/dL (6.5-8.0)
[2023-06-13 19:04] LABS: Basophils Absolute Auto 0.1 X10*3/uL (0.0-0.2); Basophils Percent Auto 0.8 % (0-2); Eosinophils Absolute Auto 0.1 X10*3/uL (0.0-0.4); Hematocrit 23.7 % (42.0-52.0); Hemoglobin 8.1 g/dl (14.0-18.0); Imm Gran Abs Auto 0.11 X10*3/uL (0.00-0.03); Imm Gran Pct Auto 1.5 % (0.0-0.4); Lymphocytes Absolute Auto 0.7 X10*3/uL (1.2-4.9); Lymphocytes Percent Auto 9.9 % (20-40); Mean Corpuscular HGB Conc 34.2 g/dl (31.0-36.0); Mean Corpuscular Hemoglobin 37.2 pg (27.0-33.0); Mean Corpuscular Volume 108.7 fL (80.0-98.0); Mean Platelet Volume 12.9 fL (9.4-12.4); Monocytes Percent Auto 14.2 % (2-11); Neutrophils Absolute Auto 5.3 x10*3/uL (2.0-8.3); Neutrophils Percent Auto 72.6 % (45-73); Red Blood Count 2.18 X10*6/uL (4.60-5.80); Red Cell Distribution Width 19.5 % (11.0-16.0); White Blood Count 7.3 X10*3/uL (4.8-10.8)
[2023-06-13 19:08] LABS: B Type Natriuretic Peptide 128 pg/mL (<100)
[2023-06-13 19:10] LABS: Platelet Count 65 X10*3/uL (160-400)
--- NOTE | 2023-06-13 20:39 | ED.ALCOHOL ---
HPI - Alcohol General Chief Complaint: ETOH/Substance Use Stated Complaint: weakness, ETOH Time Seen by Provider: 06/13/23 18:17 Source: patient Mode of arrival: EMS History of Present Illness HPI narrative: Patient brought in by EMS after was found intoxicated liquor store in states he has been drinking all day. He has no acute medical complaints at this time Related Data Home Medications Medication Instructions Recorded Confirmed acetaminophen 325 mg tablet 650 mg PO Q6H PRN Headache 06/08/23 06/13/23 Allergies Allergy/AdvReac Type Severity Reaction Status Date / Time No Known Allergies Allergy Verified 05/29/23 19:25 [No Known Allergies*] Review of Systems Review of Systems: Pertinent positives and negatives as stated in HPI PMFSH Past Medical History Source: nursing notes reviewed Medical History Alcohol abuse Surgical History No history of previous surgery Social History Social History Household Members: None Household Members Other:: pt homeless Housing: Homeless Do you presently have visiting nurse or other home services: No Alcohol intake: current Alcohol intake frequency: does not drink Alcohol type: beer and hard liquor Patient Tobacco Use Status: Former Tobacco user Quit Date: 12 years ago Tobacco use type: Cigarette Smoked in Last 30 Days: No Second Hand Smoke Exposure: No Advance Directives: No Advance Directives Information Provided: No service: No Physical Exam ED Vital Signs: Vital Signs - 24 hr 06/13/23 17:54 06/13/23 20:48 Temperature 98.0 F 99.1 F Pulse Rate 110 H 104 H Respiratory Rate 20 20 Blood Pressure 120/72 98/55 L Pulse Oximetry 93 91 L Oxygen Delivery Method Room Air Room Air BMI result Body Mass Index 19.4 VITAL SIGNS: Reviewed. GENERAL: Chronically ill, cachectic, in no acute distress. HEAD: Normocephalic/atraumatic EYES: PERRLA, EOMI LUNGS: Normal breath sounds. No adventitious sounds or accessory muscle use. SpO2<93> CARDIOVASCULAR: Regular rate and rhythm without noted murmurs, no JVD or lower extremity edema. ABDOMEN: Soft, non-tender, non-distended with bowel sounds. MUSCULOSKELETAL: No tenderness, deformities, or effusions noted on gross inspection. EXTREMITIES: No cyanosis, clubbing or edema. SKIN: Inspection of the skin reveals no rashes NEUROLOGIC: Alert and oriented x 3. Strength and sensation to light touch were grossly intact x 4. Medical Decision Making Medical Decision Making [facility] Narrative: 53-year-old male with multiple medical comorbidities and has typical presentation of alcohol intoxication and being brought in by EMS and has no apparent medical complaints today but will obtain labs as he has significant underlying medical conditions. I have reviewed all investigations and patient has chronically stable hematologic indices without leukocytosis or left shift, macrocytic anemia and stable chronic platelet count. Chemistry indices are chronically stable with electrolytes within normal limits and no RAVI. Sodium and chloride levels consistent with poor oral intake in combination with likely beer potomania. Although there is bump in lipase levels patient has no complaints of abdominal discomfort and is not nauseous nor is he vomiting. He is otherwise medically cleared for discharge when clinically stable. 2226: On evaluation of serum alcohol level which was 139 at 18:39 patient is chemically cleared for discharge, he is observed to ambulate with a steady gait. Differential Diagnosis Differential Diagnoses: The differential diagnosis associated with the presentation includes Please see the discussion above Admission/Observation Consideration of admission/observation: Escalation of care including admission/observation considered Please see discussion above Lab Data [facility] Lab Attestation statement: I reviewed the patient's lab results. Please see the discussion above 06/13/23 18:40 06/13/23 18:39 Labs: Lab Results 06/13/23 06/13/23 06/13/23 Range/Units 18:39 18:39 18:40 WBC 7.3 (4.8-10.8) X10*3/uL RBC 2.18 L (4.60-5.80) X10*6/uL Hgb 8.1 L (14.0-18.0) g/dl Hct 23.7 L (42.0-52.0) % MCV 108.7 H (80.0-98.0) fL MCH 37.2 H (27.0-33.0) pg MCHC 34.2 (31.0-36.0) g/dl RDW 19.5 H (11.0-16.0) % Plt Count 65 L (160-400) X10*3/uL MPV 12.9 H (9.4-12.4) fL Immature Gran % (Auto) 1.5 H (0.0-0.4) % Neut % (Auto) 72.6 (45-73) % Lymph % (Auto) 9.9 L (20-40) % Mora % (Auto) 14.2 H (2-11) % Eos % (Auto) 1.0 (0-4) % Baso % (Auto) 0.8 (0-2) % Lymph # (Auto) 0.7 L (1.2-4.9) X10*3/uL Mora # (Auto) 1.0 (0.1-1.2) X10*3/uL Eos # (Auto) 0.1 (0.0-0.4) X10*3/uL Baso # (Auto) 0.1 (0.0-0.2) X10*3/uL Abs Immat Gran (auto) 0.11 H (0.00-0.03) X10*3/uL Absolute Neuts (auto) 5.3 (2.0-8.3) x10*3/uL Absolute Nucleated RBC 0.000 (0.0-0.012) X10*3/uL Nucleated RBC % (auto) 0.0 (0.0-0.2) /100WBC Sodium 128 L (135-145) mmol/L Potassium 4.1 (3.3-5.1) mmol/L Chloride 99 (96-108) mmol/L Carbon Dioxide 19 L (22-29) mmol/L Anion Gap 14 (12-20) BUN 13 (9-16) mg/dL Creatinine 0.74 (0.5-1.4) mg/dL Estim Creat Clear Calc 87.8 Estimated GFR > 60 Random Glucose 117 H (60-115) mg/dL Calcium 8.6 (8.4-10.2) mg/dL Total Bilirubin 2.3 H (0.0-1.0) mg/dL AST 67 H (5-37) U/L ALT 18 (0-40) U/L Alkaline Phosphatase 102 (39-117) U/L B-Natriuretic Peptide 128 H (<100) pg/mL Total Protein 7.1 (6.5-8.0) g/dL Albumin 2.4 L (3.5-5.0) g/dL Lipase 113 H (8-78) U/L Ethyl Alcohol 139 mg/dL Medications Administered Discontinued Medications Generic Name Dose Route Start Last Admin Trade Name Freq PRN Reason Stop Dose Admin Furosemide 20 mg 06/13/23 20:50 06/13/23 21:16 Furosemide 20 Mg Tablet PO 06/13/23 20:51 20 mg ONCE ONE Administration Protocol Discharge Plan Discharge Clinical Impression: Alcohol abuse, Alcohol intoxication Patient Disposition: Home, Self-Care Instructions: Abuse of Alcohol (ED), Alcohol Intoxication (ED) Additional Instructions: Please follow-up with your primary care provider. Prescriptions: No Action acetaminophen 325 mg Tablet 650 mg PO Q6H PRN (Reason: Headache)
[2023-06-13 20:48] VITALS: BP 98/55; PULSE 104; RESP 20; TEMP 37.3; O2SAT 91
[2023-06-13] MEDS: Furosemide 20 MG TABLET PO (21:16)
--- NOTE | 2023-06-13 21:16 | PC.NURSE ---
patient received in bed with eyes open focus on going home family stated they were coming patient was medicated with meds that was ordered patient will continue to be monitored for safety
== END 2023-06-13 22:35 | disposition home or self-care (01) ==
PROVIDERS: Emergency Provider Student in an Organized Health Care Education/Training Program
DX: F10.120 Alcohol abuse with intoxication, uncomplicated (principal); Y90.6 Blood alcohol level of 120-199 mg/100 ml; D64.9 Anemia, unspecified; I50.9 Heart failure, unspecified; Z87.891 Personal history of nicotine dependence; Z79.899 Other long term (current) drug therapy
CPT/HCPCS: 36415; 80053; 80307; 83690; 83880; 85025; 99283; 99284

== ENCOUNTER 2023-06-14 14:20 | Emergency (ER) | payer MEDICAID, SELFPAY ==
--- NOTE | ~2023-06-14 | XR_ITS ---
EXAMINATION: XR CHEST CLINICAL INFORMATION: Atraumatic bilateral rib pain. COMPARISON: 06/08/2023. TECHNIQUE: 2 views of the chest were obtained. FINDINGS: Mild bibasilar opacification and linear opacities are seen with interval increase. The upper lung sánchez are clear. The heart and mediastinal structures are unremarkable. XR/XR chest 2V IMPRESSION: Very small bilateral pleural effusions and increased bibasilar linear opacities, right greater than left suggesting atelectasis. Developing infiltrates cannot be excluded.
[2023-06-14 14:29] VITALS: BP 105/72; PULSE 109; O2SAT 97
[2023-06-14 14:30] VITALS: BP 93/56; PULSE 110; RESP 19; TEMP 36.6; O2SAT 95; BMI 22.7
--- NOTE | 2023-06-14 16:14 | ED_ITS ---
HPI - Chest Pain General Chief Complaint: ETOH/Substance Use Stated Complaint: WEAK,FLANK PAIN,ETOH USE PER EMS Time Seen by Provider: 06/14/23 16:06 Source: patient Mode of arrival: EMS Limitations: no limitations History of Present Illness HPI narrative: 53-year-old male with history of alcohol use disorder who has been seen here frequently over the last month for alcohol-related issues who presents emergency department complaining of bilateral rib pain. The patient does appear to be intoxicated and is an unreliable informant. He states he has been having rib pain for a week but has not complained of this over the last several visits. Patient was last seen on 06/13/2023 at that time he denied chest pain. The patient denied fever, chills, cough, shortness of breath, nausea, vomiting. Patient does have a left wrist drop he states that it has been present for at least 1 week. Related Data Home Medications Medication Instructions Recorded Confirmed acetaminophen 325 mg tablet 650 mg PO Q6H PRN Headache 06/08/23 06/14/23 Allergies Allergy/AdvReac Type Severity Reaction Status Date / Time No Known Allergies Allergy Verified 05/29/23 19:25 [No Known Allergies*] Review of Systems Review of Systems: Yes all other systems are reviewed and are negative [facility] Past Medical History [facility] Narrative: Past medical history: Alcohol use disorder. Social history: Patient does drink alcohol daily . He states that he drink 2 [employer] (25 ounce Malt beer with 8% alcohol) prior to coming to the emergency department. Denied drug use. Medical History Alcohol abuse Surgical History No history of previous surgery Social History Social History Household Members: None Household Members Other:: pt homeless Housing: Homeless Do you presently have visiting nurse or other home services: No Alcohol intake: current Alcohol intake frequency: does not drink Alcohol type: beer and hard liquor Patient Tobacco Use Status: Former Tobacco user Quit Date: 12 years ago Tobacco use type: Cigarette Second Hand Smoke Exposure: No Advance Directives: No service: No Physical Exam Vital Signs: Vital Signs: Last Vital Signs Temp 100.2 F 06/14/23 19:30 Pulse 106 H 06/14/23 19:30 Resp 14 06/14/23 19:30 BP 102/59 L 06/14/23 19:30 Pulse Ox 95 06/14/23 19:30 O2 Del Method Room Air 06/14/23 19:30 BMI result Body Mass Index 22.7 Vital signs well then elevated pulse of 110 General: Cachectic, male patient, does not appear to be in distress, does have a strong odor of alcohol on his breath, does answer questions appropriately. HEENT: Head is normal cephalic, atraumatic, pupils were equal round reactive light, sclera and contact however normal. Mouth revealed moist member Neck: Supple Lungs: Clear to auscultation breath sounds symmetric bilaterally Chest: No palpable chest wall tender Heart: Tachycardia, normal S1-S2 Abdomen: Soft, nontender, nondistended with normal bowel sounds Back: No CVA tenderness Extremities: Patient has a left wrist drop, right upper extremities normal Neuro: Nonfocal except for left wrist drop Medical Decision Making Medical Decision Making MDM Narrative: 53-year-old man with history of alcohol use disorder who has been here in the emergency department 7 times over the last month for evaluation of alcohol related issues who presents emergency department for evaluation of bilateral chest pain which he states has been there for weeks but he did not complain of this during his previous visit. Patient's exam did reveal tachycardia, left wrist drop, no chest wall tenderness and symmetric breath sounds. I did order a two view chest x-ray to evaluate the patient for rib fractures, pneumothorax, pneumonia. 6: Start physician observation Patient's chest x-ray is concerning for possible right lower lobe infiltrate versus atelectasis. At this time I do not think that the patient has pneumonia and that this infiltrate is more consistent with atelectasis. The patient is intoxicated will be kept in the emergency department until awake , sober and can be discharged 7: Physician observation continued Patient is still somnolent and intoxicated. At the end of my shift, patient's care was turned over to my colleague, Dr. Alexandria Sweeney. Differential Diagnosis Differential diagnosis includes was not limited to pneumonia, pneumothorax, rib fracture, alcohol related illness, left wrist drop/radial nerve palsy Admission/Observation Consideration of admission/observation: Escalation of care including admission/observation considered Independent Interpretation I performed an independent interpretation of an: Plain X-Ray Interpretation: My independent interpretation of the patient's chest x-ray is as follows: Right lower lobe atelectasis versus infiltrate, no pneumothorax, no rib fracture. Radiology Impression Discussion of test interpretation with radiology: I have reviewed the radiologist's reading. Radiologist Impression: XR chest 2V IMPRESSION: Very small bilateral pleural effusions and increased bibasilar linear opacities, right greater than left suggesting atelectasis. Developing infiltrates cannot be excluded. Dictated By:Manuelito Beth MD Discharge Plan Discharge Clinical Impression: Chest pain, Alcohol intoxication, Homeless Patient Disposition: Still a Patient Instructions: Abuse of Alcohol (ED) Additional Instructions: You need to get treatment for your alcohol use disorder Continue taking medications as prescribed by your providers. Follow-up with your doctor in 2 days. Please return to the emergency department if your symptoms get worse or if you develop any symptoms that are concerning to you. Prescriptions: No Action acetaminophen 325 mg Tablet 650 mg PO Q6H PRN (Reason: Headache)
[2023-06-14 19:30] VITALS: BP 102/59; PULSE 106; RESP 14; TEMP 37.9; O2SAT 95
--- NOTE | 2023-06-14 19:35 | PC.NURSE ---
raad cabrera made this rn aware of temp of 100.[address] moore aware of temp. no new orders placed
--- NOTE | 2023-06-14 20:00 | PC.NURSE ---
recorder of deeds placed wrist splint. cms intact. pt sleeping positioned on back on stretcher
[2023-06-14 22:08] VITALS: BP 106/58; PULSE 99; RESP 16; TEMP 37.4; O2SAT 94
[2023-06-15 01:15] VITALS: BP 99/58; PULSE 99; RESP 18; TEMP 37.8; O2SAT 93
--- NOTE | 2023-06-15 01:20 | PC.NURSE ---
raad cabrera made this rn aware of temp of 100.1. this rn made dr garcia aware of elevated temp. per no new orders
--- NOTE | 2023-06-15 03:15 | PC.NURSE ---
Assumed care of pt. Pt bentley edawrds, easily rousable, no acute distress at this time. Plan to discharge when clinically sober.
--- NOTE | 2023-06-15 04:20 | PC.NURSE ---
Pt requesting to go home. MD aware, planning for discharge.
[2023-06-15 04:24] VITALS: BP 106/72; PULSE 98; RESP 18; TEMP 37.6; O2SAT 97
== END 2023-06-15 04:24 | disposition home or self-care (01) ==
PROVIDERS: Emergency Provider Emergency Medicine Emergency Medical Services
DX: R07.89 Other chest pain (principal); R07.81 Pleurodynia; R10.2 Pelvic and perineal pain; F10.129 Alcohol abuse with intoxication, unspecified; Y90.9 Presence of alcohol in blood, level not specified; Z59.00 Homelessness unspecified; Z79.899 Other long term (current) drug therapy
CPT/HCPCS: 71046; 99283; 99284

== ENCOUNTER 2023-06-20 12:44 | Emergency (ER) | payer MEDICAID, SELFPAY ==
[2023-06-20 12:57] VITALS: BP 112/72; BP 98/55; PULSE 104; PULSE 107; RESP 18; TEMP 37.2; O2SAT 93; O2SAT 96; BMI 19.4
--- NOTE | 2023-06-20 13:01 | PC.NURSE ---
pt a&ox3. respirations even and unlabored. pt brought by EMS for possible ETOH. pt has significant edema bilateral extremities up to his knees. pt has a soft very round belly. pt reports pain in his right ribs. vss.
--- NOTE | 2023-06-20 13:08 | ED_ITS ---
HPI - Alcohol General Chief Complaint: ETOH/Substance Use Stated Complaint: ETOH, BILATERAL FOOT EDEMA Time Seen by Provider: 06/20/23 12:59 Source: patient Mode of arrival: EMS Limitations: no limitations History of Present Illness HPI narrative: 53-year-old male who has been seen frequently here in the emergency department over the last month for alcohol-related issues. He told me that he has no complaints at this time except that he has been drinking alcohol and they forced him to come to the emergency department. He was last seen here in the emergency department on 06/13/2023 for alcohol intoxication. That time he did have LFTs which revealed an elevated bilirubin of 2.3, elevated AST 67 an elevated lipase of 113. He was anemic with an H&H 8.1 and 23.7 with a high MCV of 108.7 suggesting that is anemia secondary to malnutrition, thiamine and folate deficiency. Patient states that he has noticed that his abdomen has gotten distended in his lower extremities are swollen. He states that he is drinking alcohol every day and he does not think that he can stop drinking alcohol. Also he states he is not interested in getting into a rehab program. He denied fever, chills, chest pain, shortness of breath, nausea, vomiting or diarrhea. Related Data Home Medications Medication Instructions Recorded Confirmed acetaminophen 325 mg tablet 650 mg PO Q6H PRN Headache 06/08/23 06/14/23 Allergies Allergy/AdvReac Type Severity Reaction Status Date / Time No Known Allergies Allergy Verified 05/29/23 19:25 [No Known Allergies*] Review of Systems Review of Systems: Yes all other systems are reviewed and are negative [facility] Past Medical History [facility] Narrative: Social history: Patient states he does smoke cigarettes, he drinks alcohol daily, he does not use drugs. He had a urine drug screen on 06/08/2023 which was negative for drugs. Medical History Alcohol abuse Surgical History No history of previous surgery Social History Social History Household Members: None Household Members Other:: pt homeless Housing: Homeless Do you presently have visiting nurse or other home services: No Alcohol intake: current Alcohol intake frequency: does not drink Alcohol type: beer and hard liquor Patient Tobacco Use Status: Former Tobacco user Quit Date: 12 years ago Tobacco use type: Cigarette Second Hand Smoke Exposure: No service: No Physical Exam ED Vital Signs: Vital Signs - 24 hr 06/20/23 12:57 Temperature 98.9 F Pulse Rate 104 H Respiratory Rate 18 Blood Pressure 98/55 L Pulse Oximetry 93 Oxygen Delivery Method Room Air BMI result Body Mass Index 19.4 Vital signs were normal except for an elevated heart rate of 104 General: Awake, he appears to be intoxicated, strong odor of alcohol on his breath, he is cooperative Head: Normocephalic, atraumatic EENT: PERRL, Lids normal, sclera normal, conjunctiva normal, nose normal , ears normal, throat without erythema or exudates Neck: Supple, no adenopathy, trachea midline and nontender Lung: breath sounds symmetric, no wheezing, rales or rhonchi Chest: symmetric movement, nontender Heart: regular rate and rhythm, normal S1, S2 no murmurs or rubs Abdomen: soft, abdomen is distended secondary to ascites, has no abdominal tenderness, has normoactive bowel sounds Back: no vertebral tenderness, no CVAT Extremities: no deformities, moves all extremities symmetrically, 2+ pitting edema, symmetric Skin: no rashes, no lesion, normal color and warmth Neuro: Awake, alert, oriented, normal speech, cranial nerves intact, moves all extremities symmetrically Psych: Pleasant, cooperative Medical Decision Making Medical Decision Making MDM Narrative: 53-year-old male with a history of chronic alcohol use who was seen 8 times last month for alcohol intoxication and this is 2nd visit this month for alcohol intoxication. Patient admits to continuing to drink alcohol daily and that he is not interested in stopping his alcohol use he is not interested in getting into a detox program. Patient's laboratory evaluation from 06/13/2023 revealed an elevated bilirubin of 2.3 and significant macrocytic anemia which is consistent with his alcohol use disorder. Patient's examination did reveal significant ascites and peripheral edema suggesting that he has alcoholic cirrhosis. The patient is not reliable in be noncompliant with medications therefore I do not think that we can treat him at this time specially since he is not interested in getting into detox. The patient will be kept here in the emergency department until he is sober and can be safely discharged. Differential Diagnosis Differential Diagnoses: The differential diagnosis associated with the presentation includes Differential diagnosis includes but is not limited to alcohol intoxication, polysubstance use disorder, alcoholic cirrhosis, abdominal ascites, peripheral edema secondary to cirrhosis Admission/Observation Consideration of admission/observation: Escalation of care including admission/observation considered Discharge Plan Discharge Clinical Impression: Alcoholic liver disease, Anemia, macrocytic, Acute alcoholic intoxication, Edema, peripheral, Abdominal ascites Prescriptions: No Action acetaminophen 325 mg Tablet 650 mg PO Q6H PRN (Reason: Headache)
[2023-06-20 14:30] VITALS: BP 98/56; PULSE 102; RESP 18; TEMP 37.3; O2SAT 93
[2023-06-20 17:22] VITALS: BP 101/55; PULSE 102; RESP 18; TEMP 36.9; O2SAT 94
--- NOTE | 2023-06-20 18:42 | PC.NURSE ---
pt continuos on sleeping, respirations even and unlabored, in no apparent distress at this time
--- NOTE | 2023-06-20 21:04 | MHC.RECOVSUP ---
? Reason for consult:ETOH o? Current location:ED18H? o? Identified substance use concern:? -? Support ? Intervention: o? Community resources provided ? Plan: o? Follow up tomorrow?(Please) ? Additional information:[facility] attempted to speak with this pt regarding treatment options but this pt was heavily sedated and didn'y respond to me calling his name. [facility] did provide recovery resources, please follow up with this pt tomorrow.
[2023-06-20 21:25] VITALS: BP 110/64; PULSE 111; RESP 20; O2SAT 92
== END 2023-06-21 06:17 | disposition home or self-care (01) ==
PROVIDERS: Emergency Provider Emergency Medicine
DX: R60.0 Localized edema (principal); K70.9 Alcoholic liver disease, unspecified; F10.129 Alcohol abuse with intoxication, unspecified; Y90.9 Presence of alcohol in blood, level not specified; Z79.899 Other long term (current) drug therapy
CPT/HCPCS: 99284

== ENCOUNTER 2023-06-24 18:26 | Inpatient (IN) | payer MEDICAID, SELFPAY ==
--- NOTE | ~2023-06-24 | US_ITS ---
EXAMINATION: US ABDOMEN LIMITED CLINICAL INFORMATION: Question ascites. COMPARISON: CT abdomen from 05/25/2023 TECHNIQUE: Real-time imaging of the 4 quadrants of the abdomen. FINDINGS: FREE FLUID: Moderate ascites noted in the abdomen greatest in the region of the the pelvis/right lower quadrant. US/US abdomen limited IMPRESSION: Moderate ascites noted in the abdomen greatest in the region of the pelvis/right lower quadrant.
--- NOTE | ~2023-06-24 | XR_ITS ---
EXAMINATION: XR CHEST CLINICAL INFORMATION: Reason for Exam worsening sob COMPARISON: Chest radiograph 06/24/2023 TECHNIQUE: One view of the chest FINDINGS: Lines and tubes: EKG leads overlie the patient. New multifocal right parenchymal airspace opacities suspicious for infection or aspiration, recommend follow-up radiographs to ensure resolution. New trace left pleural effusion. No pneumothorax. Unchanged cardiomediastinal silhouette. XR/XR chest 1V IMPRESSION: 1. New multifocal right parenchymal airspace opacities suspicious for infection or aspiration, recommend follow-up radiographs to ensure resolution. 2. New trace left pleural effusion. 3. Unchanged cardiomediastinal silhouette.
--- NOTE | ~2023-06-24 | US_ITS ---
Examination: Ultrasound-guided paracentesis. CLINICAL INDICATION: Ascites. SOB. TECHNIQUE: Following explaining ultrasound-guided paracentesis procedure, benefits and risk, a written consent was obtained. Patient was placed supine on ultrasound stretcher and preliminary ultrasound imaging was obtained. An optimal site was selected along the left mid quadrant and marked and draped in usual sterile manner. 1% lidocaine was administered puncture site. Through a small skin incision a 5 [place] [employer]est[employer] catheter was advanced through the peritoneal space space into the left mid abdomen. After observing fluid return, stylet was withdrawn and catheter connected to vacuum bottle via connecting cannula. After obtaining approximately 2.7 cm of clear yellowish fluid, catheter was withdrawn and complete hemostasis achieved at puncture site. Sterile dressing applied postprocedure. FINDINGS: On preliminary ultrasound imaging there is a moderate amount of free fluid in the abdomen. Approximately 2.75 L of mildly cloudy fluid yellowish was removed. Part of this fluid was sent to lab as per physician's request. US/US paracentesis abd w/image IMPRESSION: Successful ultrasound-guided diagnostic and therapeutic paracentesis performed without immediate complications.
--- NOTE | ~2023-06-24 | CT_ITS ---
EXAMINATION: CT CHEST WITHOUT CONTRAST CLINICAL INFORMATION: Hypoxia, SOB COMPARISON: None available. TECHNIQUE: Multidetector volumetric CT imaging of the chest was done. Axial MIP volume rendering provided. Sagittal and coronal reformatted images were obtained. This CT examination was performed using dose optimization techniques as appropriate, variously including the following: *Automated exposure control *Adjustment of mA and/or kV according to patient size (this includes techniques or standardized protocols for targeted exams where dose is matched to indication/reason for exam; i.e. extremities or head) *Use of iterative reconstruction technique DLP: 264 mGy-cm FINDINGS: [employer]: Unremarkable chest. LUNGS: The lungs are well-expanded with patchy opacity seen in both upper lobes and both lower lobes consistent with multi lobar infiltrate MEDIASTINUM: The central trachea and the bronchi appears widely patent. The heart size and the great vessels are normal caliber. There is no pericardial effusion. CORONARY ARTERY CALCIFICATION: Mild coronary artery calcifications are seen. PLEURA: There are moderate bilateral pleural effusions left greater than right. AXILLA: No abnormal size axillary lymph nodes seen. UPPER ABDOMEN: Large liver, spleen and bilateral adrenal glands unremarkable. There are multiple radiopaque gallstones. OSSEOUS STRUCTURES: There is T8 compression fracture unchanged since previous CT abdomen exam 05/25/2023. CT/CT chest wo IV con IMPRESSION: Multi lobar infiltrates with bilateral moderate pleural effusion left slightly greater than right. Chronic appearing T8 compression fracture deformity with kyphosis. Fleischner guidelines were followed.
--- NOTE | ~2023-06-24 | XR_ITS ---
EXAMINATION: XR CHEST CLINICAL INFORMATION: Fever. COMPARISON: 06/29/2023 chest radiograph. TECHNIQUE: Frontal view of the chest was obtained. FINDINGS: Low lung volumes and evaluation. There is mild prominence of the pulmonary vasculature. The heart and mediastinal structures are unremarkable. XR/XR chest 1V IMPRESSION: Mild prominence of the pulmonary vasculature may represent vascular crowding secondary to low lung volumes. Mild congestion cannot be excluded. Mild opacities in the right mid and lower lung sánchez have decreased.
--- NOTE | ~2023-06-24 | XR_ITS ---
EXAMINATION: XR CHEST CLINICAL INFORMATION: Fever. COMPARISON: Chest radiograph 06/14/2023. TECHNIQUE: Frontal view of the chest was obtained. FINDINGS: Stable appearance of the cardiomediastinal silhouette. Similar to slightly increased bibasilar airspace opacities. No significant pleural effusion. No pneumothorax. No acute osseous findings. The visualized upper abdomen is within normal limits. XR/XR chest 1V IMPRESSION: Similar to slightly increased bibasilar airspace opacities as well as mild diffuse interstitial thickening, suspicious for an atypical/viral infection with bibasilar infiltrates. Continued follow-up recommended after treatment to ensure appropriate resolution.
[2023-06-24 18:44] VITALS: BP 124/72; BP 130/60; PULSE 114; PULSE 120; RESP 24; TEMP 37.7; O2SAT 93; BMI 26.2
--- NOTE | 2023-06-24 18:48 | ECG_ITS ---
Test Reason : TACHYCARDIA Blood Pressure : / mmHG Vent. Rate : 110 BPM Atrial Rate : 110 BPM P-R Int : 122 ms QRS Dur : 072 ms QT Int : 334 ms P-R-T Axes : 028 007 019 degrees QTc Int : 452 ms Sinus tachycardia Otherwise normal ECG When compared with ECG of 08-JUN-2023 15:43, QT has shortened Referred By: Generic ED Physician Electronically Signed By:Brayan Negron
[2023-06-24 19:14] LABS: MANUAL DIFF FLAG NO
[2023-06-24 19:16] LABS: Basophils Absolute Auto 0.1 X10*3/uL (0.0-0.2); Basophils Percent Auto 0.6 % (0-2); Eosinophils Absolute Auto 0.1 X10*3/uL (0.0-0.4); Eosinophils Percent Auto 1.3 % (0-4); Hematocrit 24.3 % (42.0-52.0); Hemoglobin 8.4 g/dl (14.0-18.0); Imm Gran Abs Auto 0.09 X10*3/uL (0.00-0.03); Lymphocytes Absolute Auto 0.8 X10*3/uL (1.2-4.9); Lymphocytes Percent Auto 8.1 % (20-40); Mean Corpuscular HGB Conc 34.6 g/dl (31.0-36.0); Mean Corpuscular Hemoglobin 37.3 pg (27.0-33.0); Mean Platelet Volume 12.2 fL (9.4-12.4); Monocytes Absolute Auto 0.9 X10*3/uL (0.1-1.2); Monocytes Percent Auto 9.8 % (2-11); Neutrophils Absolute Auto 7.5 x10*3/uL (2.0-8.3); Neutrophils Percent Auto 79.2 % (45-73); Red Blood Count 2.25 X10*6/uL (4.60-5.80); Red Cell Distribution Width 18.3 % (11.0-16.0); White Blood Count 9.4 X10*3/uL (4.8-10.8)
[2023-06-24 19:17] LABS: Platelet Count 98 X10*3/uL (160-400)
[2023-06-24 19:33] LABS: Alanine Aminotransferase 21 U/L (0-40); Albumin Level 2.3 g/dL (3.5-5.0); Alkaline Phosphatase 117 U/L (39-117); Anion Gap 14 (12-20); Aspartate Amino Transferase 94 U/L (5-37); Bilirubin Total 2.5 mg/dL (0.0-1.0); Blood Urea Nitrogen 14 mg/dL (9-16); Calcium 8.2 mg/dL (8.4-10.2); Carbon Dioxide 19 mmol/L (22-29); Chloride 104 mmol/L (96-108); Creatinine Clr Calc Pharmacy 88.1; Estimated Glomerular Filt Rate > 60; Ethanol 92 mg/dL; Glucose Random 111 mg/dL (60-115); Potassium 4.6 mmol/L (3.3-5.1); Sodium 132 mmol/L (135-145); Total Protein 8.4 g/dL (6.5-8.0)
[2023-06-24 19:35] LABS: Lactic Acid 2.4 mmol/L (0.5-2.0)
[2023-06-24 19:38] LABS: B Type Natriuretic Peptide 240 pg/mL (<100)
--- NOTE | 2023-06-24 19:38 | ED.GENADULT ---
HPI - General Adult General Chief complaint: General Medical Stated complaint: ANKLE SWELLING Time Seen by Provider: 06/24/23 18:54 Source: patient and EMS Mode of arrival: EMS Limitations: no limitations History of Present Illness HPI narrative: 53-year-old homeless male has been frequently visiting our emergency department for alcohol related issues. Patient with known history of alcohol abuse for many years presented with bilateral leg swelling and ascites. Patient declined any fever, chills, chest pain, shortness of breath, nausea, vomiting, or diarrhea. Related Data Home Medications Medication Instructions Recorded Confirmed acetaminophen 325 mg tablet 650 mg PO Q6H PRN Headache 06/08/23 06/14/23 Allergies Allergy/AdvReac Type Severity Reaction Status Date / Time No Known Allergies Allergy Verified 06/24/23 18:44 [No Known Allergies*] Review of Systems Review of Systems: All other systems are reviewed and are negative Constitutional: Reports as per HPI and Reports no additional constitutional complaints Eyes: Reports as per HPI and Reports no additional eye complaints Reports system reviewed and no additional complaints, except as documented Cardiovascular: Reports as per HPI and Reports no additional cardiovascular complaints Respiratory: Reports as per HPI and Reports no additional respiratory complaints Gastrointestinal: Reports as per HPI and Reports no additional gastrointestinal complaints Genitourinary: Reports no additional female genitourinary complaints Musculoskeletal: Reports no additional musculoskeletal complaints Skin/Breast: Reports system reviewed and no additional complaints, except as docu Psychiatric: Reports no additional psychiatric complaints Endocrine: Reports no additional endocrine complaints Hematologic/Lymphatic: Reports no additional hematologic/lymphatic complaints Allergic/Immunologic: Reports no additional allergic/immunologic complaints Reports system reviewed and no additional complaints, except as documented and Reports Abnormal speech present [facility] Past Medical History Medical History Acute on chronic anemia Alcohol abuse Anemia CHF (congestive heart failure) Surgical History No history of previous surgery Social History Social History Household Members: None Household Members Other:: pt homeless Housing: Homeless Do you presently have visiting nurse or other home services: No Alcohol intake: current Alcohol intake frequency: 3 or more drinks per day Alcohol type: beer and hard liquor Patient Tobacco Use Status: Former Tobacco user Quit Date: 12 years ago Tobacco use type: Cigarette Smoked in Last 30 Days: No Second Hand Smoke Exposure: No Use of substances other than those prescribed or required for medical reasons: No Advance Directives: No Advance Directives Information Provided: No service: No Physical Exam ED Vital Signs: Vital Signs - 24 hr 06/24/23 18:44 06/24/23 20:43 Temperature 99.8 F 101.1 F H Pulse Rate 114 H 105 H Respiratory Rate 24 H 18 Blood Pressure 124/72 116/74 Pulse Oximetry 93 94 Oxygen Delivery Method Room Air Room Air BMI result Body Mass Index 26.2 Vital signs have been reviewed as appeared to be correct. Blood pressure normal. Heart rate elevated. Respiration rate elevated. Temperature normal. Oxygen saturation normal. Appearance: Alert. Oriented X3, disheveled. No acute distress. Head: Normal external exam. Normocephalic. Atraumatic. No [place] signs noted. No raccoon eyes noted Eyes: PERRLA. EOMI. Conjunctiva and sclera normal. Eyelids normal. ENT: TM's Normal. Pharynx normal. Uvula midline. Moist mucous membranes. No trismus noted. No drooling noted. No muffled voice noted. Neck: Normal inspection. Neck supple. FROM. No adenopathy. Thyroid Normal. No meningeal signs. No neck mass noted. CVS: Normal heart rate and rhythm. Heart sound normal. No murmurs noted. Pulses normal throughout. Respiratory: No respiratory distress. Painless inspiration. Breath sounds normal. No wheezes/rales/rhonchi noted. Chest nontender. No accessory muscle usage noted or decreased air movement noted. Abdomen: Soft and nontender. Bowel sounds normal in all 4 quadrants. No distention noted. No organomegaly noted. No visible injury noted. Back: No CVA tenderness. Full range of motion noted. Skin: Skin warm and dry. Normal skin color. Normal skin turgor. No rashes/lesions/lacerations noted. Extremities: +2 lower extremity edema. Extremities exhibit normal range of motion. Extremities nontender. Neuro: Oriented X 3. Cranial nerve exam: II-XII are grossly intact No motor deficit. No sensory deficit. Reflexes normal. Course Course Course Narrative: 53-year-old homeless male with history of alcohol abuse and alcoholic liver disease presented with bilateral cellulitis patient meet criteria for SIRS, no septic shock or severe sepsis elevation of LFTs and bilirubin are chronic, and lactic acidosis likely due to dehydration and chronic liver disease. Patient received Zosyn and vancomycin for cellulitis and should cover for UTI. Patient has no abdominal pain or abdominal tenderness to suggest SBP, Will admit Medications Administered Discontinued Medications Generic Name Dose Route Start Last Admin Trade Name Freq PRN Reason Stop Dose Admin Acetaminophen 650 mg 06/24/23 21:32 06/24/23 21:37 Acetaminophen 325 Mg Tablet PO 06/24/23 21:33 650 mg ONCE ONE Administration Sodium Chloride 1,000 mls @ 999 mls/hr 06/24/23 20:53 06/24/23 20:57 Ns IV 06/24/23 21:53 999 mls/hr .Q1H1M ONE Administration Piperacillin Sod/Tazobactam 50 mls @ 100 mls/hr 06/24/23 21:06 06/24/23 21:39 Sod 3.375 gm/ Sodium Chloride IV 06/24/23 21:35 100 mls/hr ONCE ONE Administration Vancomycin HCl 1,500 mg/ 500 mls @ 333.333 mls/hr 06/24/23 21:15 06/24/23 21:53 Sodium Chloride IV 06/24/23 22:44 333.33 mls/hr ONCE ONE Administration Medical Decision Making Differential Diagnosis Differential Diagnoses: The differential diagnosis associated with the presentation includes (ACS, pulmonary embolism, rib fracture, pleural effusion, electrolyte abnormality, severe anemia.) Admission/Observation Consideration of admission/observation: Escalation of care including admission/observation considered Consult Healthcare Provider Management of the patient was discussed with: Hospitalist (Dr. Chaudhary.) Lab Data MDM Lab Attestation statement: I reviewed the patient's lab results. 06/24/23 19:04 06/24/23 19:04 Labs: Lab Results 06/24/23 06/24/23 06/24/23 Range/Units 19:04 19:04 19:04 WBC 9.4 (4.8-10.8) X10*3/uL RBC 2.25 L (4.60-5.80) X10*6/uL Hgb 8.4 L (14.0-18.0) g/dl Hct 24.3 L (42.0-52.0) % MCV 108.0 H (80.0-98.0) fL MCH 37.3 H (27.0-33.0) pg MCHC 34.6 (31.0-36.0) g/dl RDW 18.3 H (11.0-16.0) % Plt Count 98 L D (160-400) X10*3/uL MPV 12.2 (9.4-12.4) fL Immature Gran % (Auto) 1.0 H (0.0-0.4) % Neut % (Auto) 79.2 H (45-73) % Lymph % (Auto) 8.1 L (20-40) % [place] % (Auto) 9.8 (2-11) % Eos % (Auto) 1.3 (0-4) % Baso % (Auto) 0.6 (0-2) % Lymph # (Auto) 0.8 L (1.2-4.9) X10*3/uL [place] # (Auto) 0.9 (0.1-1.2) X10*3/uL Eos # (Auto) 0.1 (0.0-0.4) X10*3/uL Baso # (Auto) 0.1 (0.0-0.2) X10*3/uL Abs Immat Gran (auto) 0.09 H (0.00-0.03) X10*3/uL Absolute Neuts (auto) 7.5 (2.0-8.3) x10*3/uL Absolute Nucleated RBC 0.000 (0.0-0.012) X10*3/uL Nucleated RBC % (auto) 0.0 (0.0-0.2) /100WBC Sodium (135-145) mmol/L Potassium (3.3-5.1) mmol/L Chloride (96-108) mmol/L Carbon Dioxide (22-29) mmol/L Anion Gap (12-20) BUN (9-16) mg/dL Creatinine (0.5-1.4) mg/dL Estim Creat Clear Calc Estimated GFR Random Glucose (60-115) mg/dL Lactic Acid (0.5-2.0) mmol/L Lactic Acid F/U @ 2Hr (0.5-2.0) mmol/L Calcium (8.4-10.2) mg/dL Total Bilirubin (0.0-1.0) mg/dL AST (5-37) U/L ALT (0-40) U/L Alkaline Phosphatase (39-117) U/L Troponin I High Sens < 2.7 (<3.5-35.0) ng/L B-Natriuretic Peptide 240 H (<100) pg/mL Total Protein (6.5-8.0) g/dL Albumin (3.5-5.0) g/dL Urine Color Urine Appearance Urine pH (5.0-9.0) Ur Specific [place] (1.005-1.025) Urine Protein (Neg-Trace) mg/dL Urine Glucose (UA) (Negative) mg/dL Urine Ketones (Negative) mg/dL Urine Blood (Negative) Urine Nitrite (Negative) Ur Leukocyte Esterase (Negative) Urine RBC (0-2) /HPF Urine WBC (0-5) /HPF Ur Squamous Epith Cells (0-2) /HPF Urine Bacteria (None Seen) Hyaline Casts (0-2) /LPF Ethyl Alcohol mg/dL Influenza Type A (PCR) Influenza Type B (PCR) RSV RNA Qual (PCR) SARS-CoV-2 RNA (RT-PCR) 06/24/23 06/24/23 06/24/23 Range/Units 19:04 19:06 21:15 WBC (4.8-10.8) X10*3/uL RBC (4.60-5.80) X10*6/uL Hgb (14.0-18.0) g/dl Hct (42.0-52.0) % MCV (80.0-98.0) fL MCH (27.0-33.0) pg MCHC (31.0-36.0) g/dl RDW (11.0-16.0) % Plt Count (160-400) X10*3/uL MPV (9.4-12.4) fL Immature Gran % (Auto) (0.0-0.4) % Neut % (Auto) (45-73) % Lymph % (Auto) (20-40) % [place] % (Auto) (2-11) % Eos % (Auto) (0-4) % Baso % (Auto) (0-2) % Lymph # (Auto) (1.2-4.9) X10*3/uL [place] # (Auto) (0.1-1.2) X10*3/uL Eos # (Auto) (0.0-0.4) X10*3/uL Baso # (Auto) (0.0-0.2) X10*3/uL Abs Immat Gran (auto) (0.00-0.03) X10*3/uL Absolute Neuts (auto) (2.0-8.3) x10*3/uL Absolute Nucleated RBC (0.0-0.012) X10*3/uL Nucleated RBC % (auto) (0.0-0.2) /100WBC Sodium 132 L (135-145) mmol/L Potassium 4.6 (3.3-5.1) mmol/L Chloride 104 (96-108) mmol/L Carbon Dioxide 19 L (22-29) mmol/L Anion Gap 14 (12-20) BUN 14 (9-16) mg/dL Creatinine 0.74 (0.5-1.4) mg/dL Estim Creat Clear Calc 88.1 Estimated GFR > 60 Random Glucose 111 (60-115) mg/dL Lactic Acid 2.4 H* (0.5-2.0) mmol/L Lactic Acid F/U @ 2Hr (0.5-2.0) mmol/L Calcium 8.2 L (8.4-10.2) mg/dL Total Bilirubin 2.5 H (0.0-1.0) mg/dL AST 94 H (5-37) U/L ALT 21 (0-40) U/L Alkaline Phosphatase 117 (39-117) U/L Troponin I High Sens (<3.5-35.0) ng/L B-Natriuretic Peptide (<100) pg/mL Total Protein 8.4 H (6.5-8.0) g/dL Albumin 2.3 L (3.5-5.0) g/dL Urine Color Dark Yellow Urine Appearance Clear Urine pH 5.5 (5.0-9.0) Ur Specific [place] 1.025 (1.005-1.025) Urine Protein Trace (Neg-Trace) mg/dL Urine Glucose (UA) Negative (Negative) mg/dL Urine Ketones Trace (Negative) mg/dL Urine Blood Negative (Negative) Urine Nitrite Positive H (Negative) Ur Leukocyte Esterase Trace H (Negative) Urine RBC 3-5 H (0-2) /HPF Urine WBC 0-5 (0-5) /HPF Ur Squamous Epith Cells 0-2 (0-2) /HPF Urine Bacteria None Seen (None Seen) Hyaline Casts 3-5 (0-2) /LPF Ethyl Alcohol 92 mg/dL Influenza Type A (PCR) Influenza Type B (PCR) RSV RNA Qual (PCR) SARS-CoV-2 RNA (RT-PCR) 06/24/23 06/24/23 06/24/23 Range/Units 21:25 21:25 21:46 WBC (4.8-10.8) X10*3/uL RBC (4.60-5.80) X10*6/uL Hgb (14.0-18.0) g/dl Hct (42.0-52.0) % MCV (80.0-98.0) fL MCH (27.0-33.0) pg MCHC (31.0-36.0) g/dl RDW (11.0-16.0) % Plt Count (160-400) X10*3/uL MPV (9.4-12.4) fL Immature Gran % (Auto) (0.0-0.4) % Neut % (Auto) (45-73) % Lymph % (Auto) (20-40) % [place] % (Auto) (2-11) % Eos % (Auto) (0-4) % Baso % (Auto) (0-2) % Lymph # (Auto) (1.2-4.9) X10*3/uL [place] # (Auto) (0.1-1.2) X10*3/uL Eos # (Auto) (0.0-0.4) X10*3/uL Baso # (Auto) (0.0-0.2) X10*3/uL Abs Immat Gran (auto) (0.00-0.03) X10*3/uL Absolute Neuts (auto) (2.0-8.3) x10*3/uL Absolute Nucleated RBC (0.0-0.012) X10*3/uL Nucleated RBC % (auto) (0.0-0.2) /100WBC Sodium (135-145) mmol/L Potassium (3.3-5.1) mmol/L Chloride (96-108) mmol/L Carbon Dioxide (22-29) mmol/L Anion Gap (12-20) BUN (9-16) mg/dL Creatinine (0.5-1.4) mg/dL Estim Creat Clear Calc Estimated GFR Random Glucose (60-115) mg/dL Lactic Acid (0.5-2.0) mmol/L Lactic Acid F/U @ 2Hr 2.0 (0.5-2.0) mmol/L Calcium (8.4-10.2) mg/dL Total Bilirubin (0.0-1.0) mg/dL AST (5-37) U/L ALT (0-40) U/L Alkaline Phosphatase (39-117) U/L Troponin I High Sens (<3.5-35.0) ng/L B-Natriuretic Peptide (<100) pg/mL Total Protein (6.5-8.0) g/dL Albumin (3.5-5.0) g/dL Urine Color Urine Appearance Urine pH (5.0-9.0) Ur Specific [place] (1.005-1.025) Urine Protein (Neg-Trace) mg/dL Urine Glucose (UA) (Negative) mg/dL Urine Ketones (Negative) mg/dL Urine Blood (Negative) Urine Nitrite (Negative) Ur Leukocyte Esterase (Negative) Urine RBC (0-2) /HPF Urine WBC (0-5) /HPF Ur Squamous Epith Cells (0-2) /HPF Urine Bacteria (None Seen) Hyaline Casts (0-2) /LPF Ethyl Alcohol mg/dL Influenza Type A (PCR) Cancelled NEGATIVE Influenza Type B (PCR) Cancelled NEGATIVE RSV RNA Qual (PCR) Cancelled NEGATIVE SARS-CoV-2 RNA (RT-PCR) Cancelled NEGATIVE Independent Interpretation I performed an independent interpretation of an: EKG (Sinus tachycardia at 110 beats per minute, normal intervals, no ST-T changes.) and Plain X-Ray (Chest:Similar to slightly increased bibasilar airspace opacities as well as mild diffuse interstitial thickening, suspicious for an atypical/viral infection with bibasilar infiltrates. Continued follow-up recommended after treatment to ensure appropriate resolution. ) Radiology Impression Discussion of test interpretation with radiology: I have reviewed the radiologist's reading. (Similar to slightly increased bibasilar airspace opacities as well as mild diffuse interstitial thickening, suspicious for an atypical/viral infection with bibasilar infiltrates. Continued follow-up recommended after treatment to ensure appropriate resolution. ) Discharge Plan Discharge Clinical Impression: Alcoholic liver disease, Acute UTI, Sepsis, Cellulitis Patient Disposition: Admitted As Inpatient
[2023-06-24 19:43] LABS: Troponin-I High Sensitivity < 2.7 ng/L (<3.5-35.0)
[2023-06-24 20:43] VITALS: BP 116/74; PULSE 105; RESP 18; TEMP 38.4; O2SAT 94
[2023-06-24] MEDS: 0.9 % Sodium Chloride 1,000 ML 999 ML IV (20:57)
--- NOTE | 2023-06-24 20:58 | PC.NURSE ---
Temp 101.1, hr 106, and lactic 24. Notified Sepsis alert not called as of now
[2023-06-24 21:12] LABS: Reflex Lactate? Lactic Acid Added
[2023-06-24 21:33] LABS: Appearance Urine Clear; Color Urine Dark Yellow; Glucose Urine UA Negative (Negative); Leukocyte Esterase Urine Trace (Negative); Nitrite Urine Positive (Negative); PH 5.5 (5.0-9.0); Specific Gravity - Urine 1.025 (1.005-1.025); UMIC TRIGGER UACC YES; Urine Blood Negative (Negative); Urine Ketones Trace mg/dL (Negative); Urine Protein Trace mg/dL (Neg-Trace)
[2023-06-24] MEDS: Acetaminophen 325 MG TABLET 650 MG PO (21:37)
[2023-06-24] MEDS: Piperacillin Sodium/Tazobactam 3.375 GM in 0.9 % Sodium Chloride 50 ML IV (21:39)
[2023-06-24 21:52] LABS: Bacteria Urine None Seen (None Seen); Squamous Epithelial Cell Urine 0-2 /HPF (0-2); UACC Culture Trigger YES; WBC Urine 0-5 /HPF (0-5)
[2023-06-24] MEDS: vancomycin HCL 1,500 MG in 0.9 % Sodium Chloride 500 ML 333.33 MG IV (21:53)
[2023-06-24 22:27] LABS: Influenza A PCR NEGATIVE (Negative); Influenza B PCR NEGATIVE (Negative); Resp Syncy Virus RNA Qual PCR NEGATIVE (Negative); SARS COV2 PCR INHOUSE NEGATIVE (Negative)
[2023-06-24 23:27] VITALS: BP 110/64; PULSE 108; RESP 27; O2SAT 94
[2023-06-25] VITALS (10 sets, daily range): BP systolic 92–116; BP diastolic 55–74; PULSE 67–109; RESP 16–25; TEMP 36.4–37.6; O2SAT 88–96
--- NOTE | 2023-06-25 00:02 | P.HPHOSP_ITS ---
History of Present Illness Date of Service: 06/24/23 Chief Complaint: leg swelling, etoh 53-year-old male past medical history of alcoholic liver cirrhosis, anemia, CHF, alcohol abuse, comes into the hospital after a bystander stops EMS to pick him up. Patient is homeless, reports that he has been having swelling in his legs for the past several weeks. Reports having some shortness of breath, cough, sputum production, denies any chest pain, no palpitations, no abdominal pain nausea or vomiting, no diarrhea constipation, no urinary symptoms. On arrival to the ED patient was found to have a fever of 101.1, elevated heart rate of 105, otherwise stable satting 94% on room air Labs are significant for WBC count of 9.4, hemoglobin of 8.4 which is chronic at baseline, platelets 98, sodium 132, lactic acid of 2.4 improved after giving fluids to 2, albumin of 2.3, BNP of 240, UA positive for nitrites leukocyte Estrace and WBC Chest x-ray shows infiltrate bilaterally concerning for atypical pneumonia Patient started on antibiotics and will be admitted for further management Review of Systems Review of Systems: Yes all other systems are reviewed and are negative [facility] Medical History Acute on chronic anemia Alcohol abuse Anemia CHF (congestive heart failure) Surgical History No history of previous surgery Social History Household Members: None Household Members Other:: pt homeless Housing: Homeless Do you presently have visiting nurse or other home services: No Alcohol intake: current Alcohol intake frequency: 3 or more drinks per day Alcohol type: beer and hard liquor Patient Tobacco Use Status: Former Tobacco user Quit Date: 12 years ago Tobacco use type: Cigarette Smoked in Last 30 Days: No Second Hand Smoke Exposure: No Use of substances other than those prescribed or required for medical reasons: No Advance Directives: No Advance Directives Information Provided: No service: No Meds Allergies Allergy/AdvReac Type Severity Reaction Status Date / Time No Known Allergies Allergy Verified 06/24/23 18:44 [No Known Allergies*] Home Medications Medication Instructions Recorded Confirmed Last Taken Type acetaminophen 325 mg tablet 650 mg PO Q6H PRN Headache 06/08/23 06/14/23 Unknown History Physical Exam Vital Signs and Narrative: Vital Signs: Last Vital Signs Temp 101.1 F H 06/24/23 20:43 Pulse 108 H 06/24/23 23:27 Resp 27 H 06/24/23 23:27 BP 110/64 06/24/23 23:27 Pulse Ox 94 06/24/23 23:27 O2 Del Method Room Air 06/24/23 23:27 BMI result Body Mass Index 26.2 Const: Other: Ill-appearing, very poor hygiene General: cooperative and no acute distress Eyes: General: appearance normal, both eyes and all related structures Resp: Effort & Inspection: normal respiratory effort Auscultation: clear to auscultation bilaterally Cardio: Rate: regular rate Rhythm: regular rhythm GI: Palpation (GI): Soft to palpation Auscultation: normal bowel sounds Skin: General skin exam: no rashes or lesions noted Extrem: Other: 3+ pitting edema in lower extremity of to the knees General: Yes normal to inspection Results Labs 06/24/23 19:04 06/24/23 19:04 Labs: Laboratory Results - last 24 hr 06/24/23 06/24/23 06/24/23 19:04 19:04 19:04 MCV 108.0 H MCH 37.3 H MCHC 34.6 RDW 18.3 H Plt Count 98 L D MPV 12.2 Immature Gran % (Auto) 1.0 H Neut % (Auto) 79.2 H Lymph % (Auto) 8.1 L [place] % (Auto) 9.8 Eos % (Auto) 1.3 Baso % (Auto) 0.6 Lymph # (Auto) 0.8 L [place] # (Auto) 0.9 Eos # (Auto) 0.1 Baso # (Auto) 0.1 Abs Immat Gran (auto) 0.09 H Absolute Neuts (auto) 7.5 Absolute Nucleated RBC 0.000 Nucleated RBC % (auto) 0.0 Anion Gap 14 Estim Creat Clear Calc 88.1 Estimated GFR > 60 Random Glucose 111 Lactic Acid Lactic Acid F/U @ 2Hr Calcium 8.2 L Total Bilirubin 2.5 H AST 94 H ALT 21 Alkaline Phosphatase 117 B-Natriuretic Peptide 240 H Total Protein 8.4 H Albumin 2.3 L Urine Color Urine Appearance Urine pH Ur Specific [place] Urine Protein Urine Glucose (UA) Urine Ketones Urine Blood Urine Nitrite Ur Leukocyte Esterase Urine RBC Urine WBC Ur Squamous Epith Cells Urine Bacteria Hyaline Casts Ethyl Alcohol 92 Influenza Type A (PCR) Influenza Type B (PCR) RSV RNA Qual (PCR) SARS-CoV-2 RNA (RT-PCR) 06/24/23 06/24/23 06/24/23 19:06 21:15 21:25 MCV MCH MCHC RDW Plt Count MPV Immature Gran % (Auto) Neut % (Auto) Lymph % (Auto) [place] % (Auto) Eos % (Auto) Baso % (Auto) Lymph # (Auto) [place] # (Auto) Eos # (Auto) Baso # (Auto) Abs Immat Gran (auto) Absolute Neuts (auto) Absolute Nucleated RBC Nucleated RBC % (auto) Anion Gap Estim Creat Clear Calc Estimated GFR Random Glucose Lactic Acid 2.4 H* Lactic Acid F/U @ 2Hr Calcium Total Bilirubin AST ALT Alkaline Phosphatase B-Natriuretic Peptide Total Protein Albumin Urine Color Dark Yellow Urine Appearance Clear Urine pH 5.5 Ur Specific [place] 1.025 Urine Protein Trace Urine Glucose (UA) Negative Urine Ketones Trace Urine Blood Negative Urine Nitrite Positive H Ur Leukocyte Esterase Trace H Urine RBC 3-5 H Urine WBC 0-5 Ur Squamous Epith Cells 0-2 Urine Bacteria None Seen Hyaline Casts 3-5 Ethyl Alcohol Influenza Type A (PCR) Cancelled Influenza Type B (PCR) Cancelled RSV RNA Qual (PCR) Cancelled SARS-CoV-2 RNA (RT-PCR) Cancelled 06/24/23 06/24/23 21:25 21:46 MCV MCH MCHC RDW Plt Count MPV Immature Gran % (Auto) Neut % (Auto) Lymph % (Auto) [place] % (Auto) Eos % (Auto) Baso % (Auto) Lymph # (Auto) [place] # (Auto) Eos # (Auto) Baso # (Auto) Abs Immat Gran (auto) Absolute Neuts (auto) Absolute Nucleated RBC Nucleated RBC % (auto) Anion Gap Estim Creat Clear Calc Estimated GFR Random Glucose Lactic Acid Lactic Acid F/U @ 2Hr 2.0 Calcium Total Bilirubin AST ALT Alkaline Phosphatase B-Natriuretic Peptide Total Protein Albumin Urine Color Urine Appearance Urine pH Ur Specific [place] Urine Protein Urine Glucose (UA) Urine Ketones Urine Blood Urine Nitrite Ur Leukocyte Esterase Urine RBC Urine WBC Ur Squamous Epith Cells Urine Bacteria Hyaline Casts Ethyl Alcohol Influenza Type A (PCR) NEGATIVE Influenza Type B (PCR) NEGATIVE RSV RNA Qual (PCR) NEGATIVE SARS-CoV-2 RNA (RT-PCR) NEGATIVE Imaging Radiologist's Impressions: Impressions Chest X-Ray 06/24/23 21:30 IMPRESSION: Similar to slightly increased bibasilar airspace opacities as well as mild diffuse interstitial thickening, suspicious for an atypical/viral infection with bibasilar infiltrates. Continued follow-up recommended after treatment to ensure appropriate resolution. Assessment and Plan (1) Acute UTI: Status: Acute (2) Sepsis: Status: Acute (3) Acute CHF: Status: Acute (4) Community acquired pneumonia: Status: Acute Plan 53-year-old male with past medical history of alcoholic liver disease, thrombocytopenia, chronic anemia comes into the hospital shortness of breath and leg swelling found to have multiple abnormalities # sepsis - likely multifactorial in the setting of acute UTI as well as pneumonia - will treat with IV antibiotics - follow cultures # acute CHF exacerbation - likely alcoholic cardiomyopathy - has significant lower extremity edema which is probably exacerbated by low albumin,, shortness of breath, Caltrate on chest x-ray, and elevated BNP - will treat with Lasix, strict I&O, low-sodium diet, daily weight - will obtain echocardiogram - follow BMP # acute pneumonia - community-acquired pneumonia - will treat with IV antibiotics - follow cultures # acute UTI - positive UA - will treat with IV antibiotics - follow cultures # chronic anemia - likely secondary to liver disease - stable hemoglobin - follow CBC # thrombocytopenia - secondary to liver disease - no acute bleed - monitor platelet count DVT prophylaxis: Lovenox Given patient's need for further management of sepsis patient require minimum 2 nights inpatient hospital stay for further management and monitoring Time Spent With Patient Time: Total time managing care of this patient today ____ minutes. Quality Stroke Does the patient have a stroke diagnosis?: No VTE Prior VTE?: No VTE Risk Level:: Medical - moderate - high VTE Device Contraindication: N/A - Device Ordered VTE Drug Contraindication: Treatment Not Indicated
[2023-06-25] MEDS: Furosemide 40 MG/4 ML VIAL IVPUSH (02:33)
[2023-06-25] MEDS: cefTRIAXone sodium 1 GM in 0.9 % Sodium Chloride 50 ML IV (02:35)
[2023-06-25] MEDS: Enoxaparin Sodium 40 MG/0.4 ML SYRINGE SUBCUT (02:35)
[2023-06-25] MEDS: PHENobarbitaL sodium 130 MG/ML IM ONCE 220 MG IM (02:36)
[2023-06-25] MEDS: Azithromycin 500 MG in 0.9 % Sodium Chloride 250 ML 125 MG IV (02:47)
[2023-06-25] MEDS: Albumin Human 25 % 100 ML IV ×2 (02:58→05:44)
[2023-06-25] MEDS: Acetaminophen 325 MG TABLET 650 MG PO (03:09)
[2023-06-25] MEDS: PHENobarbitaL sodium 130 MG/ML VIAL IM Q3Hx2 165 MG IM ×2 (05:44→08:40)
[2023-06-25 07:37] LABS: Alanine Aminotransferase 17 U/L (0-40); Albumin Level 2.5 g/dL (3.5-5.0); Alkaline Phosphatase 100 U/L (39-117); Anion Gap 13 (12-20); Aspartate Amino Transferase 60 U/L (5-37); Blood Urea Nitrogen 13 mg/dL (9-16); Calcium 7.7 mg/dL (8.4-10.2); Carbon Dioxide 18 mmol/L (22-29); Chloride 109 mmol/L (96-108); Creatinine Clr Calc Pharmacy 89.3; Estimated Glomerular Filt Rate > 60; Glucose Random 103 mg/dL (60-115); Potassium 3.6 mmol/L (3.3-5.1); Sodium 136 mmol/L (135-145); Total Protein 6.8 g/dL (6.5-8.0)
--- NOTE | 2023-06-25 08:18 | PC.NURSE ---
Addendum entered by Chance Gutierrez 06/25/23 08:55: lung sounds cta. Original Note: pt axox4, vss, afebrile, respirations even and unlabored, sats 93% 1L NC, nsr on monitor 90 BPM, skin warm and dry color appropriate to ethnicity, BLE +3 pitting edema noted, +pulses bilat. pt denies pain/cp/sob/dizziness at this time. breakfast given. all needs met at this time. call harris within reach.
[2023-06-25] MEDS: 0.9 % Sodium Chloride Flush 3 ML SYRINGE IVFLUSH ×2 (08:42→20:14)
--- NOTE | 2023-06-25 08:54 | PHA.MEDREC ---
Pharmacy Consult ? Medication Reconciliation Pharmacy has completed the medication reconciliation.
[2023-06-25] MEDS: Thiamine HCL 100 MG TABLET PO (09:33)
[2023-06-25] MEDS: Folic Acid 1 MG TABLET PO (09:33)
--- NOTE | 2023-06-25 13:02 | PC.NURSE ---
pt axox4, respirations even and unlabored, sats remain 95% on RA, nsr on monitor 92 bpm. pt educated on plan of care and awaiting bed assignment. pt denies concerns/questions at this time. call harris within reach.
--- NOTE | 2023-06-25 13:16 | P.PNIM_ITS ---
Subjective Subjective Date of Service: 06/25/23 Interval History: acute CHF exacerbation Review of Systems Leg swelling seems similar Denies any chest pain or cough or phlegm Last Fever episode was 101*f on 06/24 around 8 pm. Physical Exam Vital Signs: Vital Signs: Last Vital Signs Temp 98.9 F 06/25/23 08:34 Pulse 92 06/25/23 13:00 Resp 16 06/25/23 13:00 BP 103/61 06/25/23 13:00 Pulse Ox 95 06/25/23 13:00 O2 Del Method Room Air 06/25/23 13:00 O2 Flow Rate 1 06/25/23 08:41 BMI result Body Mass Index 26.2 Appearance: Alert.? Oriented X3.? not in distress.? cvs: rrr, [id number] . res: clear to auscultation ,no rhonchii or wheezing abd: no rebound or guarding ,nt, bs present. ext pulses present , no cyanosis .leg swelling 3+ neuro: axo3 , nonfocal. Objective Data Active Medications Acetaminophen (Acetaminophen 325 Mg Tablet) 650 mg PO Q6H PRN PRN Reason: Pain, Mild (Pain Scale 1-3) Last Admin: 06/25/23 03:09 Dose: 650 mg Documented By: KAMRYN Enoxaparin Sodium (Enoxaparin Sodium 40 Mg/0.4 Ml Syringe) 40 mg SUBCUT Q24H [facility] Last Admin: 06/25/23 02:35 Dose: 40 mg Documented By: KAMRYN Folic Acid (Folic Acid 1 Mg Tablet) 1 mg PO DAILY [facility] Last Admin: 06/25/23 09:33 Dose: 1 mg Documented By: SALAZAR Ceftriaxone Sodium 1 gm/ (Sodium Chloride) 50 mls @ 100 mls/hr IV Q24H [facility] Last Infusion: 06/25/23 03:05 Dose: 0 mls/hr Documented By: DHARA Azithromycin 500 mg/ Sodium (Chloride) 250 mls @ 125 mls/hr IV Q24H [facility] Last Infusion: 06/25/23 04:47 Dose: 0 mls/hr Documented By: DHARA Ondansetron HCl (Ondansetron Hcl 4 Mg/2 Ml Vial) 4 mg IVPUSH Q8H PRN PRN Reason: Nausea and Vomiting Pharmacy Consult (Consult Rx Etoh Phenob Im/Po) 1 each MISCELLANE ONCE PRN; Protocol PRN Reason: Consult order Phenobarbital (Phenobarbital 15 Mg Tablet) 45 mg PO BID [facility] Stop: 06/27/23 09:01 Phenobarbital (Phenobarbital 15 Mg Tablet) 15 mg PO BID [facility] Stop: 06/29/23 09:01 Phenobarbital (Phenobarbital 15 Mg Tablet) 15 mg PO DAILY [facility] Stop: 07/01/23 09:01 Sodium Chloride (0.9 % Sodium Chloride Flush 3 Ml Syringe) 3 ml IVFLUSH QSHIFT [facility] Last Admin: 06/25/23 08:42 Dose: 3 ml Documented By: SALAZAR Thiamine HCl (Thiamine Hcl 100 Mg Tablet) 100 mg PO DAILY [facility] Last Admin: 06/25/23 09:33 Dose: 100 mg Documented By: SALAZAR Labs 06/24/23 19:04 06/25/23 06:24 Labs: Laboratory Results - last 24 hr 06/24/23 06/24/23 06/24/23 19:04 19:04 19:04 MCV 108.0 H MCH 37.3 H MCHC 34.6 RDW 18.3 H Plt Count 98 L D MPV 12.2 Immature Gran % (Auto) 1.0 H Neut % (Auto) 79.2 H Lymph % (Auto) 8.1 L [place] % (Auto) 9.8 Eos % (Auto) 1.3 Baso % (Auto) 0.6 Lymph # (Auto) 0.8 L [place] # (Auto) 0.9 Eos # (Auto) 0.1 Baso # (Auto) 0.1 Abs Immat Gran (auto) 0.09 H Absolute Neuts (auto) 7.5 Absolute Nucleated RBC 0.000 Nucleated RBC % (auto) 0.0 Anion Gap 14 Estim Creat Clear Calc 88.1 Estimated GFR > 60 Random Glucose 111 Lactic Acid Lactic Acid F/U @ 2Hr Calcium 8.2 L Total Bilirubin 2.5 H AST 94 H ALT 21 Alkaline Phosphatase 117 B-Natriuretic Peptide 240 H Total Protein 8.4 H Albumin 2.3 L Urine Color Urine Appearance Urine pH Ur Specific [place] Urine Protein Urine Glucose (UA) Urine Ketones Urine Blood Urine Nitrite Ur Leukocyte Esterase Urine RBC Urine WBC Ur Squamous Epith Cells Urine Bacteria Hyaline Casts Ethyl Alcohol 92 Influenza Type A (PCR) Influenza Type B (PCR) RSV RNA Qual (PCR) SARS-CoV-2 RNA (RT-PCR) 06/24/23 06/24/23 06/24/23 19:06 21:15 21:25 MCV MCH MCHC RDW Plt Count MPV Immature Gran % (Auto) Neut % (Auto) Lymph % (Auto) [place] % (Auto) Eos % (Auto) Baso % (Auto) Lymph # (Auto) [place] # (Auto) Eos # (Auto) Baso # (Auto) Abs Immat Gran (auto) Absolute Neuts (auto) Absolute Nucleated RBC Nucleated RBC % (auto) Anion Gap Estim Creat Clear Calc Estimated GFR Random Glucose Lactic Acid 2.4 H* Lactic Acid F/U @ 2Hr Calcium Total Bilirubin AST ALT Alkaline Phosphatase B-Natriuretic Peptide Total Protein Albumin Urine Color Dark Yellow Urine Appearance Clear Urine pH 5.5 Ur Specific [place] 1.025 Urine Protein Trace Urine Glucose (UA) Negative Urine Ketones Trace Urine Blood Negative Urine Nitrite Positive H Ur Leukocyte Esterase Trace H Urine RBC 3-5 H Urine WBC 0-5 Ur Squamous Epith Cells 0-2 Urine Bacteria None Seen Hyaline Casts 3-5 Ethyl Alcohol Influenza Type A (PCR) Cancelled Influenza Type B (PCR) Cancelled RSV RNA Qual (PCR) Cancelled SARS-CoV-2 RNA (RT-PCR) Cancelled 06/24/23 06/24/23 06/25/23 21:25 21:46 06:24 MCV MCH MCHC RDW Plt Count MPV Immature Gran % (Auto) Neut % (Auto) Lymph % (Auto) [place] % (Auto) Eos % (Auto) Baso % (Auto) Lymph # (Auto) [place] # (Auto) Eos # (Auto) Baso # (Auto) Abs Immat Gran (auto) Absolute Neuts (auto) Absolute Nucleated RBC Nucleated RBC % (auto) Anion Gap 13 Estim Creat Clear Calc 89.3 Estimated GFR > 60 Random Glucose 103 Lactic Acid Lactic Acid F/U @ 2Hr 2.0 Calcium 7.7 L D Total Bilirubin 2.0 H AST 60 H ALT 17 Alkaline Phosphatase 100 B-Natriuretic Peptide Total Protein 6.8 Albumin 2.5 L Urine Color Urine Appearance Urine pH Ur Specific [place] Urine Protein Urine Glucose (UA) Urine Ketones Urine Blood Urine Nitrite Ur Leukocyte Esterase Urine RBC Urine WBC Ur Squamous Epith Cells Urine Bacteria Hyaline Casts Ethyl Alcohol Influenza Type A (PCR) NEGATIVE Influenza Type B (PCR) NEGATIVE RSV RNA Qual (PCR) NEGATIVE SARS-CoV-2 RNA (RT-PCR) NEGATIVE Microbiology Microbiology Results: Microbiology 06/24/23 Unknown Urine Culture - Preliminary Urine clean catch - Urine velasco top No growth to date. Assessment and Plan (1) Acute CHF: Status: Acute (2) Community acquired pneumonia: Status: Acute Plan 53-year-old male with past medical history of alcoholic liver disease, thrombocytopenia, chronic anemia comes into the hospital shortness of breath and leg swelling found to have multiple abnormalities sepsis- thought to be likely multifactorial in the setting of acute UTI as well as pneumonia - will treat with IV antibiotics ceftriaxone /azithromycin day2,blood cultures pending - follow cultures acute CHF exacerbation - likely alcoholic cardiomyopathy - has significant lower extremity edema which is probably exacerbated by low albumin,, shortness of breath, Caltrate on chest x-ray, and elevated BNP - will treat with Lasix, strict I&O, low-sodium diet, daily weight - will obtain echocardiogram - follow BMP acute pneumonia - community-acquired pneumonia - will treat with IV antibiotics - follow cultures acute UTI - positive UA - will treat with IV antibiotics - follow cultures chronic anemia - likely secondary to liver disease - stable hemoglobin - follow CBC thrombocytopenia - secondary to liver disease - no acute bleed - monitor platelet count DVT prophylaxis: [facility]-chf execerbation-iv lasix , i/o monitering ,renal function/electrolytic monitering - management and monitoring sepsis/pneumonia-need iv antibiotics and blood cultures pending Time Spent With Patient Time: Total time managing care of this patient today ____ minutes. Quality Stroke Does the patient have a stroke diagnosis?: No VTE Prior VTE?: No VTE Risk Level:: Medical - moderate - high VTE Device Contraindication: N/A - Device Ordered VTE Drug Contraindication: Treatment Not Indicated
--- NOTE | 2023-06-25 13:24 | PC.NURSE ---
attempt to call report to [facility] r[facility]; nurse to call back.
--- NOTE | 2023-06-25 14:03 | PC.NURSE ---
report given to [facility].
--- NOTE | 2023-06-25 15:07 | MHC.CM.PN ---
CM met with Patient at bedside. Patient is homeless and sleeps behind the [employer] on [address] in [place]. Patient has a Niece in [place] and family that lives in [place], but they are not involved with Patient. DC plan is TBD; CM has initiated and will follow for dc planning. No PCP nor HCP.Family Resource Guide provided.
[2023-06-25] MEDS: vancomycin HCL 1,250 MG in 0.9 % Sodium Chloride 250 ML 166.67 MG IV (18:07)
[2023-06-25] MEDS: PHENobarbitaL 15 MG TABLET 45 MG PO (20:14)
[2023-06-26] MEDS: Azithromycin 500 MG in 0.9 % Sodium Chloride 250 ML 125 MG IV ×2 (00:33→23:31)
[2023-06-26] MEDS: Enoxaparin Sodium 40 MG/0.4 ML SYRINGE SUBCUT ×2 (00:33→23:35)
[2023-06-26 03:56] VITALS: BP 103/59; PULSE 102; RESP 18; TEMP 37.7; O2SAT 93
[2023-06-26] MEDS: vancomycin HCL 1,250 MG in 0.9 % Sodium Chloride 250 ML 166.67 MG IV (06:00)
--- NOTE | 2023-06-26 07:00 | CA_ITS ---
Transthoracic Echocardiogram Patient (Last, First, Middle): Charbel Delgado, Gender: Male Date of : 1970 Age: 53 Procedure Date: 06/26/2023 Procedure Type: Transthoracic Echocardiogram Location: [facility] Height: 157.48 cm Weight: 64.86 kg BSA: 1.66 m2 Heart Rate: bpm BP: 103 / 59 mmHg Clinical Informatics Manager: Referring MD: Sarah Chaudhary MD Household Appliance Repairer: Axel Diane MD Symptoms: Acute CHF Study Quality: Fair ECG Rhythm: Sinus Conclusions: - 1. Normal LV systolic function with LVEF of 65- 70% 2. Cardiac valvular Dopplers within normal limits 3. Normal RV systolic pressure 4. No gross pericardial effusion Findings Left Ventricle Normal left ventricular size, thickness, and systolic function. The visually estimated ejection fraction is between 65-70%. Spectral Doppler is indicative of a normal filling pattern. Right Ventricle Normal right ventricular cavity size and systolic function. Atria The left atrium is likely dilated. Interatrial shunt cannot be excluded. The right atrium is normal in size. Aortic Valve The aortic valve was not well visualized. There is no aortic valve stenosis. There is no aortic valve regurgitation. Mitral Valve Normal mitral valve structure and function. There is trace mitral valve regurgitation. There is no mitral valve stenosis. Pulmonic Valve The pulmonic valve is likely normal. There is trace to mild pulmonic valve regurgitation. Tricuspid Valve Normal tricuspid valve structure. There is mild tricuspid valve regurgitation. The right ventricular systolic pressure is normal. The right ventricular systolic pressure is 32 mmHg. Normal right atrial pressure. There is no evidence of pulmonary hypertension. Great Vessels All visible segments of the aorta are normal in size. The pulmonary artery was not well visualized. Venous The inferior vena cava is normal in size and collapses greater than 50% with inspiration. Pericardium/Pleural There is no evidence of pericardial effusion. Prior Study Comparison No prior study available for comparison. Measurements 2D Linear Measurements IVSd: 0.79 0.6-0.9/0.6-1.0 cm LVIDd: 4.46 3.9-5.3/4.2-5.9 cm LVIDd Index: 2.69 2.4-3.2/2.2-3.1 cm/m2 LVIDs: 2.61 2.0-3.6 cm LVPWd: 0.91 0.7-1.1 cm Ao Root: 2.50 2.1-3.5 cm LA Diam: 3.60 2.7-3.8/3.0-4.0 cm LAIDs Index: 2.17 1.5-2.3 cm/m2 LV Mass: 151.18 67-162/88-224 g LV Mass Index: 91.08 43-95/49-115 g/m2 LVOT Diam: 2.20 3.0+(-)1.3 cm Mitral Valve MV VTI: 0.34 MV Pk Orion: 1.06 MV Mn Orion: 0.68 MV Pk Grad: 4.00 MV Mn Grad: 2.00 MV Pk E: 1.19 MV PK A: 0.89 MV Decel Time: 166.00 E/A: 1.30 E'Lateral: 12.10 E'Medial: 8.27 E/E' Med: 14.40 E/E' Lat: 9.80 PHT: 48.00 MVA PHT: 4.58 MVA Continuity: 2.79 Decel [place]: 7.20 Aortic Valve AoV Pk Orion: 1.68 AoV Mn [place]: 1.26 AoV VTI: 0.36 AoV Pk Grad: 11.00 Aov Mn Grad: 7.00 DARION Cont.VTI: 2.58 LVOT LVOT Pk [place]: 1.39 LVOT Mn [place]: 0.84 LVOT VTI: 0.25 LVOT Pk Grad: 8.00 LVOT Mn Grad: 4.00 LVOT Diam: 2.20 LVOT Area: 3.80 Diastolic Function MV Pk E: 1.19 MV Pk A: 0.89 E/A: 1.30 E'Medial: 8.27 E/E' Med: 14.40 E' Laterial: 12.10 E/E' Lat: 9.80 Right Ventricle TAPSE (mm): 28.00 Tricuspid Valve TR Pk Orion: 2.70 TR Pk Grad: 29.00 RA Press: 3.00 RVSP: 32.00 Great Vessels Aorta Ao Root-2D: 2.50 2.0-3.7 cm Ao Asc: 2.90 2.1-3.4 cm Pulmonary Valve PV Pk Orion: 1.24 Peak PV Grad: 6.00 Updated in Other Vendor System with Status of Final Axel Diane MD electronically signed on 06/26/2023 12:41:24 PM with status of Final
[2023-06-26 07:45] VITALS: BP 110/57; PULSE 102; RESP 16; TEMP 37.2; O2SAT 92
[2023-06-26 09:18] LABS: Creatinine Clr Calc Pharmacy 82.5; Estimated Glomerular Filt Rate > 60
[2023-06-26] MEDS: Thiamine HCL 100 MG TABLET PO (09:35)
[2023-06-26] MEDS: 0.9 % Sodium Chloride Flush 3 ML SYRINGE IVFLUSH ×2 (09:35→23:34)
[2023-06-26] MEDS: cefTRIAXone sodium 1 GM in 0.9 % Sodium Chloride 50 ML IV (09:35)
[2023-06-26] MEDS: Acetaminophen 325 MG TABLET 650 MG PO (09:35)
[2023-06-26] MEDS: Folic Acid 1 MG TABLET PO (09:36)
[2023-06-26] MEDS: PHENobarbitaL 15 MG TABLET 45 MG PO ×2 (09:36→20:49)
--- NOTE | 2023-06-26 10:52 | MHC.CM.PN ---
PER MD ROUNDS, PT STILL HYPOXIC, NOT READY TO DC
[2023-06-26 11:35] VITALS: BP 100/59; PULSE 95; RESP 18; TEMP 36.7; O2SAT 95
--- NOTE | 2023-06-26 15:19 | HO.PM.IMPN ---
Subjective Subjective Date of Service: 06/26/23 Interval History: acute CHF exacerbation Review of Systems still sob with excersion no fevers Denies any chest pain or cough or phlegm Physical Exam Vital Signs: Vital Signs: Last Vital Signs Temp 98.0 F 06/26/23 11:35 Pulse 95 06/26/23 11:35 Resp 18 06/26/23 11:35 BP 100/59 L 06/26/23 11:35 Pulse Ox 95 06/26/23 11:35 O2 Del Method Nasal Cannula 06/26/23 11:35 O2 Flow Rate 2 06/26/23 07:45 BMI result Body Mass Index 26.2 Appearance: Alert.? Oriented X3.? not in distress.? cvs: [id number], [id number] . res: clear to auscultation ,no rhonchii or wheezing abd: no rebound or guarding ,nt, bs present. ext pulses present , no cyanosis .leg swelling 3+ neuro: axo3 , nonfocal. Objective Data Active Medications Acetaminophen (Acetaminophen 325 Mg Tablet) 650 mg PO Q6H PRN PRN Reason: Pain, Mild (Pain Scale 1-3) Last Admin: 06/26/23 09:35 Dose: 650 mg Documented By: RICKY Enoxaparin Sodium (Enoxaparin Sodium 40 Mg/0.4 Ml Syringe) 40 mg SUBCUT Q24H [facility] Last Admin: 06/26/23 00:33 Dose: 40 mg Documented By: ALEXIA Folic Acid (Folic Acid 1 Mg Tablet) 1 mg PO DAILY [facility] Last Admin: 06/26/23 09:36 Dose: 1 mg Documented By: RICYK Azithromycin 500 mg/ Sodium (Chloride) 250 mls @ 125 mls/hr IV Q24H [facility] Last Infusion: 06/26/23 02:48 Dose: 0 mls/hr Documented By: TYREE Ceftriaxone Sodium 1 gm/ (Sodium Chloride) 50 mls @ 100 mls/hr IV Q24H [facility] Last Infusion: 06/26/23 10:04 Dose: 0 mls/hr Documented By: RICKY Ondansetron HCl (Ondansetron Hcl 4 Mg/2 Ml Vial) 4 mg IVPUSH Q8H PRN PRN Reason: Nausea and Vomiting Pharmacy Consult (Consult Rx Etoh Phenob Im/Po) 1 each MISCELLANE ONCE PRN; Protocol PRN Reason: Consult order Pharmacy Consult (Consult Rx Vancomycin Dosing) 1 each MISCELLANE DAILY PRN PRN Reason: Consult order Phenobarbital (Phenobarbital 15 Mg Tablet) 45 mg PO BID [facility] Stop: 06/27/23 09:01 Last Admin: 06/26/23 09:36 Dose: 45 mg Documented By: RICKY Phenobarbital (Phenobarbital 15 Mg Tablet) 15 mg PO BID [facility] Stop: 06/29/23 09:01 Phenobarbital (Phenobarbital 15 Mg Tablet) 15 mg PO DAILY [facility] Stop: 07/01/23 09:01 Sodium Chloride (0.9 % Sodium Chloride Flush 3 Ml Syringe) 3 ml IVFLUSH QSHIFT [facility] Last Admin: 06/26/23 09:35 Dose: 3 ml Documented By: RICKY Thiamine HCl (Thiamine Hcl 100 Mg Tablet) 100 mg PO DAILY [facility] Last Admin: 06/26/23 09:35 Dose: 100 mg Documented By: RICKY Labs 06/24/23 19:04 06/26/23 08:03 Labs: Laboratory Results - last 24 hr 06/26/23 08:03 Estim Creat Clear Calc 82.5 Estimated GFR > 60 Microbiology Microbiology Results: Microbiology 06/24/23 Unknown Urine Culture - Final Urine clean catch - Urine velasco top 06/24/23 19:06 Blood Culture - Final Blood - Venous Coag negative Staphylococcus 06/24/23 19:20 Blood Culture - Preliminary Blood - Venous No growth after 24 hours. Assessment and Plan (1) Acute CHF: Status: Acute (2) Community acquired pneumonia: Status: Acute Plan 53-year-old male with past medical history of alcoholic liver disease, thrombocytopenia, chronic anemia comes into the hospital shortness of breath and leg swelling found to have multiple abnormalities sepsis- thought to be likely multifactorial in the setting of acute UTI as well as pneumonia - will treat with IV antibiotics ceftriaxone /azithromycin day2,blood cultures 1/2 positive for coagulase neg staph (possible contaminant) - follow cultures acute CHF exacerbation- likely alcoholic cardiomyopathy - has significant lower extremity edema which is probably exacerbated by low albumin,, shortness of breath, Caltrate on chest x-ray, and elevated BNP - will treat with Lasix, strict I&O, low-sodium diet, daily weight - will obtain echocardiogram - follow BMP acute pneumonia- community-acquired pneumonia - will treat with IV antibiotics - follow cultures acute UTI- positive UA - will treat with IV antibiotics - follow cultures chronic anemia - likely secondary to liver disease - stable hemoglobin - follow CBC thrombocytopenia - secondary to liver disease - no acute bleed - monitor platelet count DVT prophylaxis: [facility]-chf execerbation-iv lasix , i/o monitering ,renal function/electrolytic monitering - management and monitoring sepsis/pneumonia-need iv antibiotics . Time Spent With Patient Time: Total time managing care of this patient today ____ minutes. Quality Stroke Does the patient have a stroke diagnosis?: No VTE Prior VTE?: No VTE Risk Level:: Medical - moderate - high VTE Device Contraindication: N/A - Device Ordered VTE Drug Contraindication: Treatment Not Indicated
[2023-06-26 15:20] VITALS: BP 101/60; PULSE 99; RESP 19; TEMP 36.7; O2SAT 98
[2023-06-26 18:09] LABS: Vancomycin Random 21.2 mcg/mL (15-20)
[2023-06-26] MEDS: Albumin Human 25 % 100 ML IV ×2 (18:40→20:08)
[2023-06-26] MEDS: Furosemide 20 MG/2 ML VIAL IVPUSH (18:40)
[2023-06-26 20:00] VITALS: BP 103/57; PULSE 103; RESP 18; TEMP 37.3; O2SAT 97
[2023-06-26 23:41] VITALS: BP 142/84; PULSE 106; RESP 18; TEMP 37.3; O2SAT 97
[2023-06-27 03:56] VITALS: BP 101/65; PULSE 76; RESP 18; TEMP 36.8; O2SAT 95
[2023-06-27 07:28] VITALS: BP 109/67; PULSE 94; RESP 20; TEMP 37; O2SAT 93
[2023-06-27 08:15] LABS: Creatinine Clr Calc Pharmacy 75.8; Estimated Glomerular Filt Rate > 60
[2023-06-27] MEDS: cefTRIAXone sodium 1 GM in 0.9 % Sodium Chloride 50 ML IV (08:26)
[2023-06-27] MEDS: Furosemide 20 MG/2 ML VIAL IVPUSH ×3 (08:26→17:35)
[2023-06-27] MEDS: PHENobarbitaL 15 MG TABLET 45 MG PO (08:26)
[2023-06-27] MEDS: Thiamine HCL 100 MG TABLET PO (08:26)
[2023-06-27] MEDS: Folic Acid 1 MG TABLET PO (08:26)
[2023-06-27] MEDS: 0.9 % Sodium Chloride Flush 3 ML SYRINGE IVFLUSH ×3 (08:26→20:56)
[2023-06-27] MEDS: Albumin Human 25 % 100 ML 133.33 ML IV ×2 (09:07→10:21)
[2023-06-27] MEDS: Spironolactone 25 MG TABLET PO ×2 (09:07→17:34)
[2023-06-27 11:10] VITALS: BP 106/60; PULSE 95; RESP 20; TEMP 37.2; O2SAT 96
--- NOTE | 2023-06-27 14:43 | HO.PM.IMPN ---
Subjective Subjective Date of Service: 06/27/23 Interval History: possible combination of chf and liver dis related edema Review of Systems sob somewhat improving leg edema similar to yesterday no nausea vomiting or abdominal pain. Physical Exam Vital Signs: Vital Signs: Last Vital Signs Temp 98.9 F 06/27/23 11:10 Pulse 95 06/27/23 11:10 Resp 20 06/27/23 11:10 BP 106/60 06/27/23 11:10 Pulse Ox 96 06/27/23 11:10 O2 Del Method Nasal Cannula 06/27/23 11:10 O2 Flow Rate 2 06/27/23 11:10 BMI result Body Mass Index 26.2 Appearance: Alert.? Oriented X3.? not in distress.? cvs: [id number], [id number] . res: clear to auscultation ,no rhonchii or wheezing abd: no rebound or guarding ,nt, bs present. ext pulses present , no cyanosis .leg swelling 3+ neuro: axo3 , nonfocal. Objective Data Active Medications Acetaminophen (Acetaminophen 325 Mg Tablet) 650 mg PO Q6H PRN PRN Reason: Pain, Mild (Pain Scale 1-3) Last Admin: 06/26/23 09:35 Dose: 650 mg Documented By: RICKY Enoxaparin Sodium (Enoxaparin Sodium 40 Mg/0.4 Ml Syringe) 40 mg SUBCUT Q24H [facility] Last Admin: 06/26/23 23:35 Dose: 40 mg Documented By: WON Folic Acid (Folic Acid 1 Mg Tablet) 1 mg PO DAILY [facility] Last Admin: 06/27/23 08:26 Dose: 1 mg Documented By: SHABNAM Furosemide (Furosemide 20 Mg/2 Ml Vial) 20 mg IVPUSH BID@0900,1800 [facility]; Protocol Last Admin: 06/27/23 08:26 Dose: 20 mg Documented By: SHABNAM Azithromycin 500 mg/ Sodium (Chloride) 250 mls @ 125 mls/hr IV Q24H [facility] Last Infusion: 06/27/23 01:45 Dose: 0 mls/hr Documented By: WON Ceftriaxone Sodium 1 gm/ (Sodium Chloride) 50 mls @ 100 mls/hr IV Q24H [facility] Last Infusion: 06/27/23 09:11 Dose: 0 mls/hr Documented By: SHABNAM Ondansetron HCl (Ondansetron Hcl 4 Mg/2 Ml Vial) 4 mg IVPUSH Q8H PRN PRN Reason: Nausea and Vomiting Pharmacy Consult (Consult Rx Etoh Phenob Im/Po) 1 each MISCELLANE ONCE PRN; Protocol PRN Reason: Consult order Phenobarbital (Phenobarbital 15 Mg Tablet) 15 mg PO BID [facility] Stop: 06/29/23 09:01 Phenobarbital (Phenobarbital 15 Mg Tablet) 15 mg PO DAILY [facility] Stop: 07/01/23 09:01 Sodium Chloride (0.9 % Sodium Chloride Flush 3 Ml Syringe) 3 ml IVFLUSH QSHIFT [facility] Last Admin: 06/27/23 08:26 Dose: 3 ml Documented By: SHABNAM Spironolactone (Spironolactone 25 Mg Tablet) 25 mg PO BID@0900,1800 [facility]; Protocol Last Admin: 06/27/23 09:07 Dose: 25 mg Documented By: SHABNAM Thiamine HCl (Thiamine Hcl 100 Mg Tablet) 100 mg PO DAILY [facility] Last Admin: 06/27/23 08:26 Dose: 100 mg Documented By: SHABNAM Labs 06/24/23 19:04 06/27/23 06:55 Labs: Laboratory Results - last 24 hr 06/26/23 06/27/23 16:48 06:55 Estim Creat Clear Calc 75.8 Estimated GFR > 60 Random Vancomycin 21.2 H Microbiology Microbiology Results: Microbiology 06/24/23 19:20 Blood Culture - Preliminary Blood - Venous No growth after 48 hours. 06/24/23 Unknown Urine Culture - Final Urine clean catch - Urine velasco top Assessment and Plan (1) Acute CHF: Status: Acute (2) Acute UTI: Status: Acute (3) Community acquired pneumonia: Status: Acute (4) Alcoholic liver disease: Status: Acute Plan 53-year-old male with past medical history of alcoholic liver disease, thrombocytopenia, chronic anemia comes into the hospital shortness of breath and leg swelling found to have multiple abnormalities ?sepsis- thought to be likely multifactorial in the setting of acute UTI as well as pneumonia continue IV antibiotics ceftriaxone /azithromycin day3,blood cultures? 1/2 positive for coagulase neg staph (possible contaminant) acute CHF exacerbation-?cardiomypathy(possible HFpEf) vs liver disease related edema echocardiogram: - 1. Normal LV systolic function with LVEF of 65- 70%? 2. Cardiac valvular Dopplers within normal limits? 3. Normal RV systolic pressure ? 4. No gross pericardial effusion ? has significant lower extremity edema which is probably exacerbated by low albumin,shortness of breath, infiltrate on chest x-ray, and elevated BNP strict I&O : 5liter/1360ml(d/w staff to closely moniter i/o) continue Lasixiv ,added sprinolactone , low-sodium diet, daily weight follow BMP ?chronic anemia - likely secondary to liver disease - stable hemoglobin - follow CBC ?thrombocytopenia - secondary to liver disease - no acute bleed - monitor platelet count DVT prophylaxis: Lovenox ?inpatient hospital-chf execerbation-iv lasix , i/o monitering ,renal function/electrolytic monitering -? management and monitoring sepsis/pneumonia-need iv antibiotics . Time Spent With Patient Time: Total time managing care of this patient today ____ minutes. Quality Stroke Does the patient have a stroke diagnosis?: No VTE Prior VTE?: No VTE Risk Level:: Medical - moderate - high VTE Device Contraindication: N/A - Device Ordered VTE Drug Contraindication: Treatment Not Indicated
[2023-06-27 15:37] VITALS: BP 147/78; PULSE 110; RESP 20; TEMP 36.3; O2SAT 93
[2023-06-27 19:51] VITALS: BP 112/63; PULSE 108; RESP 18; TEMP 37.2; O2SAT 95
[2023-06-27] MEDS: PHENobarbitaL 15 MG TABLET PO (20:56)
[2023-06-27] MEDS: Azithromycin 500 MG in 0.9 % Sodium Chloride 250 ML 125 MG IV (23:00)
[2023-06-27] MEDS: Enoxaparin Sodium 40 MG/0.4 ML SYRINGE SUBCUT (23:09)
[2023-06-27 23:36] VITALS: BP 121/67; PULSE 109; RESP 22; TEMP 37.9; O2SAT 93
[2023-06-28 03:33] VITALS: BP 107/65; PULSE 105; RESP 24; TEMP 38.2; O2SAT 93
[2023-06-28] MEDS: Acetaminophen 325 MG TABLET 650 MG PO ×2 (04:16→23:38)
[2023-06-28 06:00] VITALS: BMI 26.1
[2023-06-28 06:11] VITALS: TEMP 37.2
[2023-06-28 07:27] LABS: Creatinine Clr Calc Pharmacy 79.5; Estimated Glomerular Filt Rate > 60
[2023-06-28 07:45] VITALS: BP 99/63; PULSE 86; RESP 18; TEMP 36.8; O2SAT 94
[2023-06-28] MEDS: Furosemide 20 MG/2 ML VIAL IVPUSH ×2 (08:53→17:21)
[2023-06-28] MEDS: cefTRIAXone sodium 1 GM in 0.9 % Sodium Chloride 50 ML IV (08:53)
[2023-06-28] MEDS: 0.9 % Sodium Chloride Flush 3 ML SYRINGE IVFLUSH ×3 (08:53→21:06)
[2023-06-28] MEDS: PHENobarbitaL 15 MG TABLET PO ×2 (08:54→21:06)
[2023-06-28] MEDS: Thiamine HCL 100 MG TABLET PO (08:54)
[2023-06-28] MEDS: Folic Acid 1 MG TABLET PO (08:54)
[2023-06-28] MEDS: Spironolactone 25 MG TABLET PO ×2 (08:54→17:20)
[2023-06-28] MEDS: Albumin Human 25 % 100 ML IV ×2 (09:28→10:57)
[2023-06-28 11:25] VITALS: BP 123/60; PULSE 93; RESP 20; TEMP 36.3; O2SAT 96
--- NOTE | 2023-06-28 13:40 | MHC.CM.PN ---
EMR reviewed and per MD rounds, pt is not medically cleared for discharge as he remains in fluid overload requiring treatment and monitoring. CM will continue to follow.
--- NOTE | 2023-06-28 15:30 | HO.PM.IMPN ---
Subjective Subjective Date of Service: 06/28/23 Interval History: chf Review of Systems sob and leg edema seems slightly improving no cough or fevers Physical Exam Vital Signs: Vital Signs: Last Vital Signs Temp 97.3 F 06/28/23 11:25 Pulse 93 06/28/23 11:25 Resp 20 06/28/23 11:25 BP 123/60 06/28/23 11:25 Pulse Ox 96 06/28/23 11:25 O2 Del Method Nasal Cannula 06/28/23 11:25 O2 Flow Rate 2 06/28/23 11:25 BMI result Body Mass Index 26.1 Appearance: Alert.? Oriented X3.? not in distress.? cvs: rrr, [id number] . res: clear to auscultation ,no rhonchii or wheezing abd: no rebound or guarding ,nt, bs present. ext pulses present , no cyanosis .leg swelling slightly improving still2+ neuro: axo3 , nonfocal. Objective Data Active Medications Acetaminophen (Acetaminophen 325 Mg Tablet) 650 mg PO Q6H PRN PRN Reason: Pain, Mild (Pain Scale 1-3) Last Admin: 06/28/23 04:16 Dose: 650 mg Documented By: ANABELA Enoxaparin Sodium (Enoxaparin Sodium 40 Mg/0.4 Ml Syringe) 40 mg SUBCUT Q24H [facility] Last Admin: 06/27/23 23:09 Dose: 40 mg Documented By: JOANNE Folic Acid (Folic Acid 1 Mg Tablet) 1 mg PO DAILY [facility] Last Admin: 06/28/23 08:54 Dose: 1 mg Documented By: BORIS Furosemide (Furosemide 20 Mg/2 Ml Vial) 20 mg IVPUSH BID@0900,1800 [facility]; Protocol Last Admin: 06/28/23 08:53 Dose: 20 mg Documented By: BORIS Azithromycin 500 mg/ Sodium (Chloride) 250 mls @ 125 mls/hr IV Q24H [facility] Last Infusion: 06/28/23 01:28 Dose: 0 mls/hr Documented By: ANABELA Ceftriaxone Sodium 1 gm/ (Sodium Chloride) 50 mls @ 100 mls/hr IV Q24H [facility] Last Infusion: 06/28/23 09:25 Dose: 0 mls/hr Documented By: NITISH Ondansetron HCl (Ondansetron Hcl 4 Mg/2 Ml Vial) 4 mg IVPUSH Q8H PRN PRN Reason: Nausea and Vomiting Pharmacy Consult (Consult Rx Etoh Phenob Im/Po) 1 each MISCELLANE ONCE PRN; Protocol PRN Reason: Consult order Phenobarbital (Phenobarbital 15 Mg Tablet) 15 mg PO BID [facility] Stop: 06/29/23 09:01 Last Admin: 06/28/23 08:54 Dose: 15 mg Documented By: BORIS Phenobarbital (Phenobarbital 15 Mg Tablet) 15 mg PO DAILY [facility] Stop: 07/01/23 09:01 Sodium Chloride (0.9 % Sodium Chloride Flush 3 Ml Syringe) 3 ml IVFLUSH QSHIFT [facility] Last Admin: 06/28/23 08:53 Dose: 3 ml Documented By: BORIS Spironolactone (Spironolactone 25 Mg Tablet) 25 mg PO BID@0900,1800 [facility]; Protocol Last Admin: 06/28/23 08:54 Dose: 25 mg Documented By: BORIS Thiamine HCl (Thiamine Hcl 100 Mg Tablet) 100 mg PO DAILY [facility] Last Admin: 06/28/23 08:54 Dose: 100 mg Documented By: BORIS Labs 06/24/23 19:04 06/28/23 06:34 Labs: Laboratory Results - last 24 hr 06/28/23 06:34 Estim Creat Clear Calc 79.5 Estimated GFR > 60 Assessment and Plan (1) Acute CHF: Status: Acute (2) Acute UTI: Status: Acute (3) Community acquired pneumonia: Status: Acute (4) Alcoholic liver disease: Status: Acute Plan 53-year-old male with past medical history of alcoholic liver disease, thrombocytopenia, chronic anemia comes into the hospital shortness of breath and leg swelling found to have multiple abnormalities ?sepsis- thought to be likely multifactorial in the setting of acute UTI as well as pneumonia continue IV antibiotics ceftriaxone /azithromycin day3,blood cultures? 1/2 positive for coagulase neg staph (possible contaminant) acute CHF exacerbation-?cardiomypathy(possible HFpEf) vs liver disease related edema echocardiogram: - 1. Normal LV systolic function with LVEF of 65- 70%? 2. Cardiac valvular Dopplers within normal limits? 3. Normal RV systolic pressure ? 4. No gross pericardial effusion ? has significant lower extremity edema which is probably exacerbated by low albumin,shortness of breath, infiltrate on chest x-ray, and elevated BNP strict I&O :6.5/3.4ml(d/w staff to closely moniter i/o) continue Lasixiv , sprinolactone , low-sodium diet, daily weight follow BMP ?chronic anemia - likely secondary to liver disease - stable hemoglobin - follow CBC ?thrombocytopenia - secondary to liver disease - no acute bleed - monitor platelet count DVT prophylaxis: Lovenox ?inpatient hospital-chf execerbation-iv lasix , i/o monitering ,renal function/electrolytic monitering -? management and monitoring sepsis/pneumonia-need iv antibiotics . Time Spent With Patient Time: Total time managing care of this patient today ____ minutes. Quality Stroke Does the patient have a stroke diagnosis?: No VTE Prior VTE?: No VTE Risk Level:: Medical - moderate - high VTE Device Contraindication: N/A - Device Ordered VTE Drug Contraindication: Treatment Not Indicated
[2023-06-28 15:59] VITALS: BP 122/78; PULSE 97; RESP 20; TEMP 36.4; O2SAT 95
[2023-06-28 20:00] VITALS: BP 120/69; PULSE 110; RESP 20; TEMP 37.1; O2SAT 94
[2023-06-28] MEDS: Enoxaparin Sodium 40 MG/0.4 ML SYRINGE SUBCUT (23:38)
[2023-06-28] MEDS: Azithromycin 500 MG in 0.9 % Sodium Chloride 250 ML 125 MG IV (23:39)
[2023-06-29] VITALS (7 sets, daily range): BP systolic 97–126; BP diastolic 53–71; PULSE 89–108; RESP 12–26; TEMP 36.2–38.8; O2SAT 90–96; BMI 25.9
[2023-06-29 05:54] LABS: Hematocrit 21.8 % (42.0-52.0); Hemoglobin 7.2 g/dl (14.0-18.0); Mean Corpuscular Hemoglobin 36.4 pg (27.0-33.0); Mean Platelet Volume 11.4 fL (9.4-12.4); Red Blood Count 1.98 X10*6/uL (4.60-5.80); Red Cell Distribution Width 18.3 % (11.0-16.0); White Blood Count 8.4 X10*3/uL (4.8-10.8)
[2023-06-29 05:55] LABS: Mean Corpuscular Volume 110.1 fL (80.0-98.0); Platelet Count 74 X10*3/uL (160-400)
[2023-06-29 06:11] LABS: Anion Gap 12 (12-20); Blood Urea Nitrogen 16 mg/dL (9-16); Calcium 8.1 mg/dL (8.4-10.2); Carbon Dioxide 21 mmol/L (22-29); Chloride 108 mmol/L (96-108); Creatinine Clr Calc Pharmacy 84.6; Estimated Glomerular Filt Rate > 60; Glucose Random 101 mg/dL (60-115); Potassium 3.1 mmol/L (3.3-5.1); Sodium 138 mmol/L (135-145)
[2023-06-29] MEDS: Furosemide 20 MG/2 ML VIAL IVPUSH (08:34)
[2023-06-29] MEDS: PHENobarbitaL 15 MG TABLET PO (08:36)
[2023-06-29] MEDS: Spironolactone 25 MG TABLET PO ×2 (08:36→17:28)
[2023-06-29] MEDS: 0.9 % Sodium Chloride Flush 3 ML SYRINGE IVFLUSH ×2 (08:36→16:01)
[2023-06-29] MEDS: Thiamine HCL 100 MG TABLET PO (08:36)
[2023-06-29] MEDS: cefTRIAXone sodium 1 GM in 0.9 % Sodium Chloride 50 ML IV (08:36)
[2023-06-29] MEDS: Folic Acid 1 MG TABLET PO (08:36)
--- NOTE | 2023-06-29 14:17 | P.PNIM_ITS ---
Subjective Subjective Date of Service: 06/29/23 Interval History: sob Physical Exam Vital Signs: Vital Signs: Last Vital Signs Temp 99.7 F 06/29/23 11:44 Pulse 103 H 06/29/23 11:44 Resp 24 H 06/29/23 11:44 BP 126/62 06/29/23 11:44 Pulse Ox 90 L 06/29/23 11:44 O2 Del Method Room Air 06/29/23 11:44 O2 Flow Rate 2 06/28/23 20:00 BMI result Body Mass Index 25.9 alert oriented times 3, dyspneic, tachypneic, accessory muscles, frail appearing Objective Data Active Medications Acetaminophen (Acetaminophen 325 Mg Tablet) 650 mg PO Q6H PRN PRN Reason: Pain, Mild (Pain Scale 1-3) Last Admin: 06/28/23 23:38 Dose: 650 mg Documented By: JENNIFER Enoxaparin Sodium (Enoxaparin Sodium 40 Mg/0.4 Ml Syringe) 40 mg SUBCUT Q24H [facility] Last Admin: 06/28/23 23:38 Dose: 40 mg Documented By: JENNIFER Folic Acid (Folic Acid 1 Mg Tablet) 1 mg PO DAILY [facility] Last Admin: 06/29/23 08:36 Dose: 1 mg Documented By: FELIPA Furosemide (Furosemide 20 Mg/2 Ml Vial) 20 mg IVPUSH BID@0900,1800 [facility]; Protocol Last Admin: 06/29/23 08:34 Dose: 20 mg Documented By: FELIPA Azithromycin 500 mg/ Sodium (Chloride) 250 mls @ 125 mls/hr IV Q24H [facility] Last Infusion: 06/29/23 01:40 Dose: 0 mls/hr Documented By: JENNIFER Ceftriaxone Sodium 1 gm/ (Sodium Chloride) 50 mls @ 100 mls/hr IV Q24H [facility] Last Infusion: 06/29/23 09:13 Dose: 0 mls/hr Documented By: FELIPA Ondansetron HCl (Ondansetron Hcl 4 Mg/2 Ml Vial) 4 mg IVPUSH Q8H PRN PRN Reason: Nausea and Vomiting Pharmacy Consult (Consult Rx Etoh Phenob Im/Po) 1 each MISCELLANE ONCE PRN; Protocol PRN Reason: Consult order Phenobarbital (Phenobarbital 15 Mg Tablet) 15 mg PO DAILY [facility] Stop: 07/01/23 09:01 Sodium Chloride (0.9 % Sodium Chloride Flush 3 Ml Syringe) 3 ml IVFLUSH QSHIFT [facility] Last Admin: 06/29/23 08:36 Dose: 3 ml Documented By: FELIPA Spironolactone (Spironolactone 25 Mg Tablet) 25 mg PO BID@0900,1800 [facility]; Protocol Last Admin: 06/29/23 08:36 Dose: 25 mg Documented By: FELIPA Thiamine HCl (Thiamine Hcl 100 Mg Tablet) 100 mg PO DAILY [facility] Last Admin: 06/29/23 08:36 Dose: 100 mg Documented By: FELIPA Labs 06/29/23 05:32 06/29/23 05:32 Labs: Laboratory Results - last 24 hr 06/29/23 06/29/23 05:32 05:32 MCV 110.1 H MCH 36.4 H MCHC 33.0 RDW 18.3 H Plt Count 74 L MPV 11.4 Absolute Nucleated RBC 0.000 Nucleated RBC % (auto) 0.0 Anion Gap 12 Estim Creat Clear Calc 84.6 Estimated GFR > 60 Random Glucose 101 Calcium 8.1 L Assessment and Plan (1) Acute CHF: Status: Acute (2) Acute UTI: Status: Acute (3) Community acquired pneumonia: Status: Acute (4) Alcoholic liver disease: Status: Acute Plan 53M PMH alcoholic dependence with cirrhosis presented with sob, cough, fevers severe sepsis possible pneumonia continue rocephin, azithro, follow up resp viral panel still febrile, will request id eval anasarca due to cirrhosis with decreased albumin received iv lasix, aldactone holding lasix for relative hypotension echo unremarkable, ivc collapses > 50% on inspiration etoh dependence with cirrhosis, thrombocytopenia, anemia check us abd ? drainable ascites monitor DVT prophylaxis: Lovenox full code reason for continued hospitalization:still febrile Time Spent With Patient Time: Total time managing care of this patient today ____ minutes. Quality Stroke Does the patient have a stroke diagnosis?: No VTE Prior VTE?: No VTE Risk Level:: Medical - moderate - high VTE Device Contraindication: N/A - Device Ordered VTE Drug Contraindication: Treatment Not Indicated
[2023-06-29] MEDS: Potassium Chloride ER 20 MEQ TAB.ER.PRT 40 MEQ PO (16:01)
[2023-06-29 16:23] LABS: Adenovirus PCR Not Detected (Not Detect.); Bordetella parapertussis PCR Not Detected (Not Detect.); Bordetella pertussis PCR Not Detected (Not Detect.); Chlamydia pneumoniae PCR Not Detected (Not Detect.); Coronavirus 229E PCR Not Detected (Not Detect.); Coronavirus HKU1 PCR Not Detected (Not Detect.); Coronavirus NL63 PCR Not Detected (Not Detect.); Coronavirus OC43 PCR Not Detected (Not Detect.); Human metapneumovirus PCR Not Detected (Not Detect.); Influenza A PCR Not Detected (Not Detect.); Influenza B PCR Not Detected (Not Detect.); Mycoplasma pneumoniae PCR Not Detected (Not Detect.); Parainfluenza 1 PCR Not Detected (Not Detect.); Parainfluenza 2 PCR Not Detected (Not Detect.); Parainfluenza 3 PCR Not Detected (Not Detect.); Parainfluenza 4 PCR Not Detected (Not Detect.); RSV PCR Not Detected (Not Detect.); Rhino/Enterovirus PCR Not Detected (Not Detect.); SARS-CoV-2 PCR Not Detected (Not Detect.)
[2023-06-30] VITALS (7 sets, daily range): BP systolic 94–116; BP diastolic 55–68; PULSE 89–104; RESP 18–24; TEMP 36.9–38.8; O2SAT 92–97; BMI 26.7
[2023-06-30] MEDS: Acetaminophen 325 MG TABLET 650 MG PO (00:47)
[2023-06-30] MEDS: Azithromycin 500 MG in 0.9 % Sodium Chloride 250 ML 125 MG IV (00:48)
[2023-06-30] MEDS: Enoxaparin Sodium 40 MG/0.4 ML SYRINGE SUBCUT (00:48)
[2023-06-30] MEDS: 0.9 % Sodium Chloride Flush 3 ML SYRINGE IVFLUSH ×3 (00:48→15:19)
[2023-06-30 06:43] LABS: Hematocrit 21.4 % (42.0-52.0); Hemoglobin 7.2 g/dl (14.0-18.0); Mean Corpuscular HGB Conc 33.6 g/dl (31.0-36.0); Mean Corpuscular Hemoglobin 36.5 pg (27.0-33.0); Mean Corpuscular Volume 108.6 fL (80.0-98.0); Mean Platelet Volume 11.3 fL (9.4-12.4); Red Blood Count 1.97 X10*6/uL (4.60-5.80); Red Cell Distribution Width 18.3 % (11.0-16.0); White Blood Count 8.7 X10*3/uL (4.8-10.8)
[2023-06-30 06:44] LABS: Platelet Count 77 X10*3/uL (160-400)
[2023-06-30 06:59] LABS: Alanine Aminotransferase 12 U/L (0-40); Albumin Level 2.5 g/dL (3.5-5.0); Alkaline Phosphatase 62 U/L (39-117); Anion Gap 11 (12-20); Aspartate Amino Transferase 44 U/L (5-37); Bilirubin Direct 1.3 mg/dL (0.0-0.5); Bilirubin Total 2.1 mg/dL (0.0-1.0); Blood Urea Nitrogen 16 mg/dL (9-16); Calcium 8.3 mg/dL (8.4-10.2); Carbon Dioxide 22 mmol/L (22-29); Chloride 109 mmol/L (96-108); Creatinine Clr Calc Pharmacy 93.1; Estimated Glomerular Filt Rate > 60; Glucose Fasting 91 mg/dL (60-99); Potassium 4.3 mmol/L (3.3-5.1); Sodium 138 mmol/L (135-145); Total Protein 6.5 g/dL (6.5-8.0)
[2023-06-30] MEDS: PHENobarbitaL 15 MG TABLET PO (09:17)
[2023-06-30] MEDS: Thiamine HCL 100 MG TABLET PO (09:17)
[2023-06-30] MEDS: Folic Acid 1 MG TABLET PO (09:17)
[2023-06-30] MEDS: Spironolactone 25 MG TABLET PO ×2 (09:17→17:42)
[2023-06-30] MEDS: cefTRIAXone sodium 1 GM in 0.9 % Sodium Chloride 50 ML IV (09:18)
--- NOTE | 2023-06-30 14:47 | MHC.CM.PN ---
Patient continues to not be medically cleared for discharge. CM following for d/c planning needs.
[2023-06-30] MEDS: Piperacillin Sodium/Tazobactam 4.5 GM in 0.9 % Sodium Chloride 100 ML IV ×2 (15:13→20:02)
--- NOTE | 2023-06-30 15:20 | W.PM.IDCN ---
History of Present Illness Data of Consult Service Date: 06/29/23 Requesting physician: Debi Jackson Primary Care Provider: Unknown Physician HPI Reason for consult: fever of unknown origin He presents with weakness for a day on arrival and found to have temperature of 101.9. He has no nausea or vomiting. CXR bibasilar infiltrates. Review of Systems Review of Systems: Yes all other systems are reviewed and are negative [facility] Past Medical History Medical History Acute on chronic anemia Alcohol abuse Anemia CHF (congestive heart failure) Family History Family history: reviewed and not pertinent Surgical History Surgical History No history of previous surgery Social History Social History Household Members: None Household Members Other:: pt homeless Housing: Other Housing Other:: homeless Do you presently have visiting nurse or other home services: No Alcohol intake: current Alcohol intake frequency: 3 or more drinks per day Alcohol type: beer and hard liquor Patient Tobacco Use Status: Former Tobacco user Quit Date: 12 years ago Tobacco use type: Cigarette Second Hand Smoke Exposure: No service: No Meds Allergies Allergy/AdvReac Type Severity Reaction Status Date / Time No Known Allergies Allergy Verified 06/24/23 18:44 [No Known Allergies*] Active Medications: Current Medications Acetaminophen (Acetaminophen 325 Mg Tablet) 650 mg PO Q6H PRN PRN Reason: Pain, Mild (Pain Scale 1-3) Last Admin: 06/30/23 00:47 Dose: 650 mg Enoxaparin Sodium (Enoxaparin Sodium 40 Mg/0.4 Ml Syringe) 40 mg SUBCUT Q24H [facility] Last Admin: 06/30/23 00:48 Dose: 40 mg Folic Acid (Folic Acid 1 Mg Tablet) 1 mg PO DAILY [facility] Last Admin: 06/30/23 09:17 Dose: 1 mg Azithromycin 500 mg/ Sodium (Chloride) 250 mls @ 125 mls/hr IV Q24H [facility] Last Infusion: 06/30/23 02:58 Dose: Infused Piperacillin Sod/Tazobactam (Sod 4.5 gm/ Sodium Chloride) 100 mls @ 200 mls/hr IV Q6H [facility] Last Admin: 06/30/23 15:13 Dose: 200 mls/hr Ondansetron HCl (Ondansetron Hcl 4 Mg/2 Ml Vial) 4 mg IVPUSH Q8H PRN PRN Reason: Nausea and Vomiting Pharmacy Consult (Consult Rx Etoh Phenob Im/Po) 1 each MISCELLANE ONCE PRN; Protocol PRN Reason: Consult order Phenobarbital (Phenobarbital 15 Mg Tablet) 15 mg PO DAILY [facility] Stop: 07/01/23 09:01 Last Admin: 06/30/23 09:17 Dose: 15 mg Sodium Chloride (0.9 % Sodium Chloride Flush 3 Ml Syringe) 3 ml IVFLUSH QSHIFT [facility] Last Admin: 06/30/23 15:19 Dose: 3 ml Spironolactone (Spironolactone 25 Mg Tablet) 25 mg PO BID@0900,1800 [facility]; Protocol Last Admin: 06/30/23 09:17 Dose: 25 mg Thiamine HCl (Thiamine Hcl 100 Mg Tablet) 100 mg PO DAILY [facility] Last Admin: 06/30/23 09:17 Dose: 100 mg Home Medications Medication Instructions Recorded Confirmed Last Taken Type acetaminophen 325 mg tablet 650 mg PO Q6H PRN Headache 06/08/23 06/25/23 Unknown History Physical Exam Vital Signs: Vital Signs: Last Vital Signs Temp 98.4 F 06/30/23 15:12 Pulse 104 H 06/30/23 15:12 Resp 24 H 06/30/23 15:12 BP 99/58 L 06/30/23 15:12 Pulse Ox 95 06/30/23 15:12 O2 Del Method Nasal Cannula 06/30/23 15:12 O2 Flow Rate 2 06/30/23 15:12 BMI result Body Mass Index 26.7 Results Labs 06/30/23 06:22 06/30/23 06:22 Labs: Short CBC 06/30/23 Range/Units 06:22 WBC 8.7 (4.8-10.8) X10*3/uL Hgb 7.2 L (14.0-18.0) g/dl Hct 21.4 L (42.0-52.0) % Plt Count 77 L (160-400) X10*3/uL BMP 06/30/23 06:22 Sodium 138 Potassium 4.3 D Chloride 109 H Carbon Dioxide 22 BUN 16 Creatinine 0.76 Calcium 8.3 L Liver Function 06/30/23 Range/Units 06:22 Total Bilirubin 2.1 H (0.0-1.0) mg/dL Direct Bilirubin 1.3 H (0.0-0.5) mg/dL AST 44 H (5-37) U/L ALT 12 (0-40) U/L Alkaline Phosphatase 62 (39-117) U/L Albumin 2.5 L (3.5-5.0) g/dL Microbiology Microbiology Results: Microbiology 06/24/23 19:20 Blood - Venous Blood Culture - Final No growth after 5 days. 06/24/23 Unknown Urine clean catch - Urine velasco top Urine Culture - Final 06/24/23 19:06 Blood - Venous Blood Culture - Final Coag negative Staphylococcus Assessment and Plan (1) Acute CHF: Status: Acute (2) Community acquired pneumonia: Status: Acute Concern over atypical organisms causing fever and no improvement. There is possible tick exposure and infection with anaplasmosis for example. (3) Sepsis: Status: Acute Plan Change Zmax to Doxycycline and continue Zosyn. When temperature under 100.5 for 24-48 hours discharge po Doxycycline 100 mg bid for one week. Check anaplasma and ehrilichia panels. Time Spent With Patient Time: Total time managing care of this patient today ____ minutes.
--- NOTE | 2023-06-30 15:22 | HO.PM.IMPN ---
Subjective Subjective Date of Service: 06/30/23 Interval History: Still reporting sob. intermittently febrile to 101.9. Vitals otherwise stable Review of Systems Review of Systems: Yes all other systems are reviewed and are negative Physical Exam Vital Signs: Vital Signs: Last Vital Signs Temp 98.4 F 06/30/23 15:12 Pulse 104 H 06/30/23 15:12 Resp 24 H 06/30/23 15:12 BP 99/58 L 06/30/23 15:12 Pulse Ox 95 06/30/23 15:12 O2 Del Method Nasal Cannula 06/30/23 15:12 O2 Flow Rate 2 06/30/23 15:12 BMI result Body Mass Index 26.7 Constitutional - Awake and Alert, No apparent distress Eyes - PERRLA, EOMI Cardiovascular - S1S2, RRR, No edema Respiratory - Normal lung expansion, Normal respiratory effort, No respiratory distress, CTA bilaterally Gastrointestinal - NT / ND; +BS; No rebound or guarding Extremities - no calf tenderness bilaterally, no swelling Skin - Warm/Dry Neurological - Alert & oriented x3 Psychological - Appropriate affect Objective Data Active Medications Acetaminophen (Acetaminophen 325 Mg Tablet) 650 mg PO Q6H PRN PRN Reason: Pain, Mild (Pain Scale 1-3) Last Admin: 06/30/23 00:47 Dose: 650 mg Documented By: MARIXA Enoxaparin Sodium (Enoxaparin Sodium 40 Mg/0.4 Ml Syringe) 40 mg SUBCUT Q24H [facility] Last Admin: 06/30/23 00:48 Dose: 40 mg Documented By: MARIXA Folic Acid (Folic Acid 1 Mg Tablet) 1 mg PO DAILY [facility] Last Admin: 06/30/23 09:17 Dose: 1 mg Documented By: BORIS Piperacillin Sod/Tazobactam (Sod 4.5 gm/ Sodium Chloride) 100 mls @ 200 mls/hr IV Q6H [facility] Last Admin: 06/30/23 15:13 Dose: 200 mls/hr Documented By: BORIS Ondansetron HCl (Ondansetron Hcl 4 Mg/2 Ml Vial) 4 mg IVPUSH Q8H PRN PRN Reason: Nausea and Vomiting Pharmacy Consult (Consult Rx Etoh Phenob Im/Po) 1 each MISCELLANE ONCE PRN; Protocol PRN Reason: Consult order Phenobarbital (Phenobarbital 15 Mg Tablet) 15 mg PO DAILY [facility] Stop: 07/01/23 09:01 Last Admin: 06/30/23 09:17 Dose: 15 mg Documented By: BORIS Sodium Chloride (0.9 % Sodium Chloride Flush 3 Ml Syringe) 3 ml IVFLUSH QSHIFT [facility] Last Admin: 06/30/23 15:19 Dose: 3 ml Documented By: BORIS Spironolactone (Spironolactone 25 Mg Tablet) 25 mg PO BID@0900,1800 [facility]; Protocol Last Admin: 06/30/23 09:17 Dose: 25 mg Documented By: BORIS Thiamine HCl (Thiamine Hcl 100 Mg Tablet) 100 mg PO DAILY [facility] Last Admin: 06/30/23 09:17 Dose: 100 mg Documented By: BORIS Labs 06/30/23 06:22 06/30/23 06:22 Labs: Laboratory Results - last 24 hr 06/29/23 06/30/23 06/30/23 14:30 06:22 06:22 MCV 108.6 H MCH 36.5 H MCHC 33.6 RDW 18.3 H Plt Count 77 L MPV 11.3 Absolute Nucleated RBC 0.000 Nucleated RBC % (auto) 0.0 Anion Gap 11 L Estim Creat Clear Calc 93.1 Estimated GFR > 60 Fasting Glucose 91 Calcium 8.3 L Total Bilirubin 2.1 H Direct Bilirubin 1.3 H AST 44 H ALT 12 Alkaline Phosphatase 62 Total Protein 6.5 Albumin 2.5 L Respiratory Panel Muhammad See Note Adenovirus (Rapid PCR) Not Detected B.pert (TEM-PCR) Not Detected B.parapertussis DNA PCR Not Detected C. pneumoniae DNA (PCR) Not Detected Coronavirus OC43 (PCR) Not Detected Coronavirus HKU1 (PCR) Not Detected Coronavirus 229E (PCR) Not Detected Coronavirus NL63 (PCR) Not Detected Human Metapneumovir PCR Not Detected Influenza A (RT-PCR) Not Detected Influenza B (RT-PCR) Not Detected M. pneumoniae (PCR) Not Detected Parainfluenza 1 (PCR) Not Detected Parainfluenza 2 (PCR) Not Detected Parainfluenza 3 (PCR) Not Detected Parainfluenza 4 (PCR) Not Detected RSV (PCR) Not Detected Entero/Rhino (PCR) Not Detected SARS-CoV-2 RNA (RT-PCR) Not Detected Microbiology Microbiology Results: Microbiology 06/24/23 19:20 Blood Culture - Final Blood - Venous No growth after 5 days. Assessment and Plan (1) Acute CHF: Status: Acute (2) Community acquired pneumonia: Status: Acute (3) Sepsis: Status: Acute Plan 53M PMH alcoholic dependence with cirrhosis presented with sob, cough, fevers severe sepsis possible pneumonia continue rocephin, azithro, follow up resp viral panel still febrile, broaden abx per id, repeat cxr IV zosyn anasarca due to cirrhosis with decreased albumin received iv lasix, aldactone holding lasix for relative hypotension echo unremarkable, ivc collapses > 50% on inspiration etoh dependence with cirrhosis, thrombocytopenia, anemia Moderate ascites noted on ultrasound Diagnostic/therapeutic paracentesis ordered monitor DVT prophylaxis: Lovenox full code reason for continued hospitalization:still febrile Time Spent With Patient Time: Total time managing care of this patient today ____ minutes. Quality Stroke Does the patient have a stroke diagnosis?: No VTE Prior VTE?: No VTE Risk Level:: Medical - moderate - high VTE Device Contraindication: N/A - Device Ordered VTE Drug Contraindication: Treatment Not Indicated
[2023-06-30] MEDS: Doxycycline Monohydrate 100 MG CAPSULE PO (17:42)
[2023-06-30] MEDS: Albumin Human 25 % 100 ML IV ×2 (20:44→21:56)
[2023-07-01] MEDS: Piperacillin Sodium/Tazobactam 4.5 GM in 0.9 % Sodium Chloride 100 ML IV ×4 (01:16→18:11)
[2023-07-01] MEDS: 0.9 % Sodium Chloride Flush 3 ML SYRINGE IVFLUSH ×3 (02:02→08:40)
[2023-07-01] MEDS: Doxycycline Monohydrate 100 MG CAPSULE PO ×2 (03:55→14:41)
[2023-07-01] MEDS: Benzonatate 100 MG CAPSULE 200 MG PO ×2 (03:55→14:42)
[2023-07-01 04:00] VITALS: BP 108/67; PULSE 104; RESP 18; TEMP 37; O2SAT 92
[2023-07-01 06:00] VITALS: BMI 26.3
[2023-07-01 06:24] LABS: MANUAL DIFF FLAG NO
[2023-07-01 06:29] LABS: Basophils Absolute Auto 0.1 X10*3/uL (0.0-0.2); Basophils Percent Auto 0.7 % (0-2); Eosinophils Absolute Auto 0.2 X10*3/uL (0.0-0.4); Hematocrit 22.2 % (42.0-52.0); Hemoglobin 7.4 g/dl (14.0-18.0); Imm Gran Abs Auto 0.08 X10*3/uL (0.00-0.03); Imm Gran Pct Auto 0.9 % (0.0-0.4); Lymphocytes Absolute Auto 0.9 X10*3/uL (1.2-4.9); Lymphocytes Percent Auto 9.4 % (20-40); Mean Corpuscular HGB Conc 33.3 g/dl (31.0-36.0); Mean Corpuscular Hemoglobin 36.8 pg (27.0-33.0); Monocytes Absolute Auto 0.9 X10*3/uL (0.1-1.2); Monocytes Percent Auto 10.2 % (2-11); Neutrophils Absolute Auto 7.1 x10*3/uL (2.0-8.3); Neutrophils Percent Auto 76.8 % (45-73); Red Blood Count 2.01 X10*6/uL (4.60-5.80); Red Cell Distribution Width 18.2 % (11.0-16.0); White Blood Count 9.2 X10*3/uL (4.8-10.8)
[2023-07-01 06:30] LABS: Mean Corpuscular Volume 110.4 fL (80.0-98.0); Platelet Count 80 X10*3/uL (160-400)
[2023-07-01 06:43] LABS: Anion Gap 13 (12-20); Blood Urea Nitrogen 14 mg/dL (9-16); Calcium 8.6 mg/dL (8.4-10.2); Carbon Dioxide 21 mmol/L (22-29); Chloride 109 mmol/L (96-108); Creatinine Clr Calc Pharmacy 81.5; Estimated Glomerular Filt Rate > 60; Glucose Random 100 mg/dL (60-115); Potassium 3.9 mmol/L (3.3-5.1); Sodium 139 mmol/L (135-145)
[2023-07-01] MEDS: Acetaminophen 325 MG TABLET 650 MG PO (06:52)
[2023-07-01 07:12] VITALS: BP 106/63; PULSE 97; RESP 18; TEMP 36.7; O2SAT 97
[2023-07-01] MEDS: Folic Acid 1 MG TABLET PO (08:40)
[2023-07-01] MEDS: Spironolactone 25 MG TABLET PO ×2 (08:40→17:11)
[2023-07-01] MEDS: Thiamine HCL 100 MG TABLET PO (08:40)
[2023-07-01] MEDS: PHENobarbitaL 15 MG TABLET PO (08:40)
--- NOTE | 2023-07-01 09:23 | PC.NURSE ---
patient off of floor and going for CT at this time
[2023-07-01 11:04] VITALS: BP 109/67; PULSE 94; RESP 18; TEMP 37.1; O2SAT 95
[2023-07-01 12:14] LABS: Folate 18.4 ng/mL (> or = 4.0); Vitamin B12 897 pg/mL (200-900)
[2023-07-01] MEDS: Albuterol/Iprat 2.5/0.5MG 3 ML AMPUL.NEB INHALE (14:41)
[2023-07-01 15:47] VITALS: BP 125/83; PULSE 105; RESP 19; TEMP 37.1; O2SAT 93
--- NOTE | 2023-07-01 17:45 | P.PNIM_ITS ---
Subjective Subjective Date of Service: 07/01/23 Interval History: pt seen and examined at bedside. no acute complaints. Reports no worsening SOB, no cp, complaining of leg swelling no n/v, abd pain Review of Systems Review of Systems: Yes all other systems are reviewed and are negative Physical Exam Vital Signs: Vital Signs: Last Vital Signs Temp 98.8 F 07/01/23 15:47 Pulse 105 H 07/01/23 15:47 Resp 19 07/01/23 15:47 BP 125/83 07/01/23 15:47 Pulse Ox 93 07/01/23 15:47 O2 Del Method Nasal Cannula 07/01/23 15:47 O2 Flow Rate 2 07/01/23 15:47 BMI result Body Mass Index 26.3 Const: Other: Pt alert, oriented x3 Resp: Other: scattered rhonchi GI: Other: abd is distended, no rebound or guarding, no tenderness Extrem: Other: + pitting edema bilaterally to the knees Objective Data Active Medications Acetaminophen (Acetaminophen 325 Mg Tablet) 650 mg PO Q6H PRN PRN Reason: Pain, Mild (Pain Scale 1-3) Last Admin: 07/01/23 06:52 Dose: 650 mg Documented By: JUAREZ Albuterol/Ipratropium (Albuterol/Iprat 2.5/0.5mg 3 Ml Ampul.Neb) 3 ml INHALE RQ4H WHILE AWAKE PRN PRN Reason: Wheezing Last Admin: 07/01/23 14:41 Dose: 3 ml Documented By: JOANNE Benzonatate (Benzonatate 100 Mg Capsule) 200 mg PO TID PRN PRN Reason: Cough Last Admin: 07/01/23 14:42 Dose: 200 mg Documented By: JOANNE Doxycycline Monohydrate (Doxycycline Monohydrate 100 Mg Capsule) 100 mg PO Q12H [facility] Last Admin: 07/01/23 14:41 Dose: 100 mg Documented By: JOANNE Folic Acid (Folic Acid 1 Mg Tablet) 1 mg PO DAILY [facility] Last Admin: 07/01/23 08:40 Dose: 1 mg Documented By: JOANNE Piperacillin Sod/Tazobactam (Sod 4.5 gm/ Sodium Chloride) 100 mls @ 200 mls/hr IV Q6H [facility] Last Infusion: 07/01/23 14:00 Dose: 0 mls/hr Documented By: JOANNE Ondansetron HCl (Ondansetron Hcl 4 Mg/2 Ml Vial) 4 mg IVPUSH Q8H PRN PRN Reason: Nausea and Vomiting Pharmacy Consult (Consult Rx Etoh Phenob Im/Po) 1 each MISCELLANE ONCE PRN; Protocol PRN Reason: Consult order Sodium Chloride (0.9 % Sodium Chloride Flush 3 Ml Syringe) 3 ml IVFLUSH QSHIFT [facility] Last Admin: 07/01/23 08:40 Dose: 3 ml Documented By: JOANNE Spironolactone (Spironolactone 25 Mg Tablet) 25 mg PO BID@0900,1800 [facility]; Protocol Last Admin: 07/01/23 17:11 Dose: 25 mg Documented By: JOANNE Thiamine HCl (Thiamine Hcl 100 Mg Tablet) 100 mg PO DAILY [facility] Last Admin: 07/01/23 08:40 Dose: 100 mg Documented By: JOANNE Labs 07/01/23 06:13 07/01/23 06:13 Labs: Laboratory Results - last 24 hr 07/01/23 07/01/23 07/01/23 06:13 06:13 11:18 MCV 110.4 H MCH 36.8 H MCHC 33.3 RDW 18.2 H Plt Count 80 L MPV 12.0 Immature Gran % (Auto) 0.9 H Neut % (Auto) 76.8 H Lymph % (Auto) 9.4 L [place] % (Auto) 10.2 Eos % (Auto) 2.0 Baso % (Auto) 0.7 Lymph # (Auto) 0.9 L [place] # (Auto) 0.9 Eos # (Auto) 0.2 Baso # (Auto) 0.1 Abs Immat Gran (auto) 0.08 H Absolute Neuts (auto) 7.1 Absolute Nucleated RBC 0.000 Nucleated RBC % (auto) 0.0 Anion Gap 13 Estim Creat Clear Calc 81.5 Estimated GFR > 60 Random Glucose 100 Calcium 8.6 Vitamin B12 897 Folate 18.4 Assessment and Plan (1) Acute CHF: Status: Acute (2) Community acquired pneumonia: Status: Acute (3) Acute UTI: Status: Acute (4) Sepsis: Status: Acute (5) Cellulitis: Status: Acute Plan This is a 53M PMx alcoholic dependence with cirrhosis presented with sob, cough, fevers #severe sepsis - Likely 2/2 to Pneumonia - Chest CT done today showing multiolobar infiltrates - Pt was initially on Rocephin and azith but continue to have fever, Abx switched to zosyn -d2, will add vanco - ID consulted - Follow cultures - cultures NTD # Acute CHF exacerbation - Ct showing pleural effusion - BNP elevated - BP stable - will start IV lasix - follow UO, Strict I&O, low sodium diet # anasarca due to cirrhosis with decreased albumin - received iv lasix, aldactone - echo unremarkable, ivc collapses > 50% on inspiration - therapeutic paracentesis planned for monday, no concern for SBP # Coagulopathy - due to liver cirrhosis - no bleed - has thrombocytopenia- follow cbc DVT prophylaxis: Lovenox full code given pt need for IV abx he will req min 2 nights inpatient hospital stay for further management Time Spent With Patient Time: Total time managing care of this patient today ____ minutes. Quality Stroke Does the patient have a stroke diagnosis?: No VTE Prior VTE?: No VTE Risk Level:: Medical - moderate - high VTE Device Contraindication: N/A - Device Ordered VTE Drug Contraindication: Treatment Not Indicated
[2023-07-01] MEDS: Furosemide 40 MG/4 ML VIAL IVPUSH (18:10)
[2023-07-01 19:23] VITALS: BP 132/68; PULSE 107; RESP 19; TEMP 37.4; O2SAT 95
[2023-07-02] VITALS (10 sets, daily range): BP systolic 89–117; BP diastolic 52–70; PULSE 85–98; RESP 16–20; TEMP 36.6–38; O2SAT 93–97
[2023-07-02] MEDS: Benzonatate 100 MG CAPSULE 200 MG PO ×3 (00:42→15:01)
[2023-07-02] MEDS: Piperacillin Sodium/Tazobactam 4.5 GM in 0.9 % Sodium Chloride 100 ML IV ×4 (00:44→17:51)
[2023-07-02] MEDS: 0.9 % Sodium Chloride Flush 3 ML SYRINGE IVFLUSH ×3 (00:45→13:10)
[2023-07-02] MEDS: Doxycycline Monohydrate 100 MG CAPSULE PO ×2 (03:36→15:01)
[2023-07-02] MEDS: Acetaminophen 325 MG TABLET 650 MG PO (03:37)
[2023-07-02] MEDS: ondansetron HCL 4 MG/2 ML VIAL IVPUSH (04:48)
--- NOTE | 2023-07-02 05:48 | PC.NURSE ---
Patient medicated for fever and nausea early this morning. No vomiting.
[2023-07-02] MEDS: Spironolactone 25 MG TABLET PO ×2 (07:13→17:50)
[2023-07-02] MEDS: Folic Acid 1 MG TABLET PO (07:13)
[2023-07-02] MEDS: Furosemide 40 MG/4 ML VIAL IVPUSH (07:14)
[2023-07-02] MEDS: Thiamine HCL 100 MG TABLET PO (07:14)
--- NOTE | 2023-07-02 10:56 | P.PNIM_ITS ---
Subjective Subjective Date of Service: 07/02/23 Interval History: Patient seen examined at bedside. Sleeping but arousable, denies any cp, reports improvement of SOB , has mild couhg. no fever or chills. No overnight event Afebrile Physical Exam Vital Signs: Vital Signs: Last Vital Signs Temp 98.5 F 07/02/23 07:43 Pulse 85 07/02/23 07:43 Resp 20 07/02/23 07:43 BP 89/52 L 07/02/23 07:43 Pulse Ox 95 07/02/23 07:43 O2 Del Method Nasal Cannula 07/02/23 07:43 O2 Flow Rate 2 07/02/23 07:43 BMI result Body Mass Index 26.3 Const: Other: Asleep but wakes up Resp: Other: Normal respiratory rate, clear lungs GI: Other: Abdomen is soft, nontender Extrem: Other: No pedal edema Objective Data Active Medications Acetaminophen (Acetaminophen 325 Mg Tablet) 650 mg PO Q6H PRN PRN Reason: Pain, Mild (Pain Scale 1-3) Last Admin: 07/02/23 03:37 Dose: 650 mg Documented By: JUAREZ Albuterol/Ipratropium (Albuterol/Iprat 2.5/0.5mg 3 Ml Ampul.Neb) 3 ml INHALE RQ4H WHILE AWAKE PRN PRN Reason: Wheezing Last Admin: 07/01/23 14:41 Dose: 3 ml Documented By: JOANNE Benzonatate (Benzonatate 100 Mg Capsule) 200 mg PO TID PRN PRN Reason: Cough Last Admin: 07/02/23 07:13 Dose: 200 mg Documented By: JOANNE Doxycycline Monohydrate (Doxycycline Monohydrate 100 Mg Capsule) 100 mg PO Q12H [facility] Last Admin: 07/02/23 03:36 Dose: 100 mg Documented By: JUAREZ Folic Acid (Folic Acid 1 Mg Tablet) 1 mg PO DAILY [facility] Last Admin: 07/02/23 07:13 Dose: 1 mg Documented By: JOANNE Furosemide (Furosemide 40 Mg/4 Ml Vial) 40 mg IVPUSH DAILY [facility]; Protocol Last Admin: 07/02/23 07:14 Dose: 40 mg Documented By: JOANNE Piperacillin Sod/Tazobactam (Sod 4.5 gm/ Sodium Chloride) 100 mls @ 200 mls/hr IV Q6H [facility]S [facility] 234 BEDS AT THE [facility] Last Infusion: 07/02/23 08:54 Dose: 0 mls/hr Documented By: JOANNE Ondansetron HCl (Ondansetron Hcl 4 Mg/2 Ml Vial) 4 mg IVPUSH Q8H PRN PRN Reason: Nausea and Vomiting Last Admin: 07/02/23 04:48 Dose: 4 mg Documented By: JUAREZ Pharmacy Consult (Consult Rx Etoh Phenob Im/Po) 1 each MISCELLANE ONCE PRN; Protocol PRN Reason: Consult order Sodium Chloride (0.9 % Sodium Chloride Flush 3 Ml Syringe) 3 ml IVFLUSH QSHIFT [facility]S [facility]CLUDE 234 BEDS AT THE [facility] Last Admin: 07/02/23 07:13 Dose: 3 ml Documented By: JOANNE Spironolactone (Spironolactone 25 Mg Tablet) 25 mg PO BID@0900,1800 [facility]S [facility]CLUDE 234 BEDS AT THE [facility]; Protocol Last Admin: 07/02/23 07:13 Dose: 25 mg Documented By: JOANNE Thiamine HCl (Thiamine Hcl 100 Mg Tablet) 100 mg PO DAILY [facility] 234 BEDS AT [facility] Last Admin: 07/02/23 07:14 Dose: 100 mg Documented By: JOANNE Labs 07/01/23 06:13 07/01/23 06:13 Labs: Laboratory Results - last 24 hr 07/01/23 11:18 Vitamin B12 897 Folate 18.4 Assessment and Plan (1) Community acquired pneumonia: Status: Acute (2) Acute UTI: Status: Acute (3) Acute CHF: Status: Acute (4) Sepsis: Status: Acute (5) Thrombocytopenia: Status: Acute Plan This is a 53M PMHx alcoholic dependence with cirrhosis presented with sob, cough, fevers #severe sepsis - improved - Likely 2/2 to Pneumonia anf UTI - Chest CT showed multiolobar infiltrates - Pt was initially on Rocephin and azith but continued to have fever, Abx switched to zosyn and doxy -d3 - ID on consult - Follow cultures - cultures showed coag negative staph- will rpt cultures # Acute CHF exacerbation - Ct showing pleural effusion - BNP elevated - received IV lasix - today pt appears euvolemic - BP soft- as pt appears euvolemic, will hold iv lasix, will place on PO. - follow UO, Strict I&O, low sodium diet - Monitor volume status # anasarca due to cirrhosis with decreased albumin - received iv lasix, aldactone - held due to hypotension - echo unremarkable, ivc collapses > 50% on inspiration - therapeutic paracentesis planned for monday, no concern for SBP # thrombocytopenia - due to liver cirrhosis - no bleed - has thrombocytopenia- follow cbc # chronic anemia - likely secondary to liver disease - stable hemoglobin - follow CBC DVT prophylaxis: Lovenox full code given pt need for IV abx he will req min 2 nights inpatient hospital stay for further management Time Spent With Patient Time: Total time managing care of this patient today ____ minutes. Quality Stroke Does the patient have a stroke diagnosis?: No VTE Prior VTE?: No VTE Risk Level:: Medical - moderate - high VTE Device Contraindication: N/A - Device Ordered VTE Drug Contraindication: Treatment Not Indicated
[2023-07-02 11:18] LABS: MANUAL DIFF FLAG NO
[2023-07-02 11:24] LABS: Basophils Absolute Auto 0.1 X10*3/uL (0.0-0.2); Basophils Percent Auto 0.6 % (0-2); Eosinophils Absolute Auto 0.3 X10*3/uL (0.0-0.4); Eosinophils Percent Auto 3.1 % (0-4); Hematocrit 23.2 % (42.0-52.0); Hemoglobin 7.7 g/dl (14.0-18.0); Imm Gran Abs Auto 0.06 X10*3/uL (0.00-0.03); Imm Gran Pct Auto 0.6 % (0.0-0.4); Lymphocytes Absolute Auto 0.9 X10*3/uL (1.2-4.9); Lymphocytes Percent Auto 9.7 % (20-40); Mean Corpuscular HGB Conc 33.2 g/dl (31.0-36.0); Mean Platelet Volume 11.7 fL (9.4-12.4); Monocytes Absolute Auto 0.8 X10*3/uL (0.1-1.2); Monocytes Percent Auto 8.8 % (2-11); Neutrophils Absolute Auto 7.2 x10*3/uL (2.0-8.3); Neutrophils Percent Auto 77.2 % (45-73); Red Blood Count 2.08 X10*6/uL (4.60-5.80); Red Cell Distribution Width 17.9 % (11.0-16.0); White Blood Count 9.3 X10*3/uL (4.8-10.8)
[2023-07-02 11:27] LABS: Mean Corpuscular Volume 111.5 fL (80.0-98.0); Platelet Count 89 X10*3/uL (160-400)
[2023-07-02 11:35] LABS: Anion Gap 12 (12-20); Blood Urea Nitrogen 14 mg/dL (9-16); Calcium 8.9 mg/dL (8.4-10.2); Carbon Dioxide 24 mmol/L (22-29); Chloride 108 mmol/L (96-108); Creatinine Clr Calc Pharmacy 71.6; Estimated Glomerular Filt Rate > 60; Glucose Random 94 mg/dL (60-115); Potassium 3.4 mmol/L (3.3-5.1); Sodium 141 mmol/L (135-145)
[2023-07-02 11:40] LABS: B Type Natriuretic Peptide 739 pg/mL (<100)
[2023-07-03] MEDS: 0.9 % Sodium Chloride Flush 3 ML SYRINGE IVFLUSH ×4 (00:36→19:59)
[2023-07-03] MEDS: Piperacillin Sodium/Tazobactam 4.5 GM in 0.9 % Sodium Chloride 100 ML IV ×4 (00:36→18:21)
[2023-07-03 03:18] VITALS: BP 94/51; PULSE 90; RESP 18; TEMP 37.3; O2SAT 95
[2023-07-03] MEDS: Doxycycline Monohydrate 100 MG CAPSULE PO ×2 (04:17→15:12)
[2023-07-03 06:00] VITALS: BMI 26.7
[2023-07-03 07:05] VITALS: BP 99/56; PULSE 88; RESP 20; TEMP 36.5; O2SAT 94
[2023-07-03] MEDS: Thiamine HCL 100 MG TABLET PO (08:08)
[2023-07-03] MEDS: Folic Acid 1 MG TABLET PO (08:08)
[2023-07-03] MEDS: Albumin Human 25 % 100 ML IV ×3 (08:25→19:59)
[2023-07-03 08:40] LABS: MANUAL DIFF FLAG NO
[2023-07-03 08:41] LABS: Basophils Absolute Auto 0.1 X10*3/uL (0.0-0.2); Basophils Percent Auto 0.8 % (0-2); Eosinophils Absolute Auto 0.3 X10*3/uL (0.0-0.4); Eosinophils Percent Auto 2.9 % (0-4); Hematocrit 23.3 % (42.0-52.0); Hemoglobin 7.7 g/dl (14.0-18.0); Imm Gran Abs Auto 0.07 X10*3/uL (0.00-0.03); Imm Gran Pct Auto 0.7 % (0.0-0.4); Lymphocytes Absolute Auto 1.1 X10*3/uL (1.2-4.9); Lymphocytes Percent Auto 11.4 % (20-40); Mean Corpuscular Hemoglobin 37.2 pg (27.0-33.0); Mean Platelet Volume 11.3 fL (9.4-12.4); Monocytes Absolute Auto 0.8 X10*3/uL (0.1-1.2); Neutrophils Absolute Auto 7.6 x10*3/uL (2.0-8.3); Neutrophils Percent Auto 76.2 % (45-73); Red Blood Count 2.07 X10*6/uL (4.60-5.80); Red Cell Distribution Width 17.8 % (11.0-16.0)
[2023-07-03 08:42] LABS: Mean Corpuscular Volume 112.6 fL (80.0-98.0); Platelet Count 93 X10*3/uL (160-400)
[2023-07-03 08:45] LABS: INTERNATIONAL NORM RATIO 2.6 (0.9-1.1); Prothrombin Time 31.3 SEC (11.1-13.3)
[2023-07-03 08:57] LABS: Alanine Aminotransferase 12 U/L (0-40); Albumin Level 2.7 g/dL (3.5-5.0); Alkaline Phosphatase 58 U/L (39-117); Anion Gap 11 (12-20); Aspartate Amino Transferase 41 U/L (5-37); Bilirubin Total 2.4 mg/dL (0.0-1.0); Blood Urea Nitrogen 15 mg/dL (9-16); Calcium 8.7 mg/dL (8.4-10.2); Carbon Dioxide 24 mmol/L (22-29); Chloride 110 mmol/L (96-108); Creatinine Clr Calc Pharmacy 84.2; Estimated Glomerular Filt Rate > 60; Glucose Random 88 mg/dL (60-115); Potassium 3.6 mmol/L (3.3-5.1); Sodium 141 mmol/L (135-145); Total Protein 6.9 g/dL (6.5-8.0)
[2023-07-03] MEDS: Lidocaine HCl 1 % MPF 5 ML VIAL SUBCUT (11:27)
[2023-07-03 11:33] VITALS: BP 103/55; PULSE 20; RESP 20; TEMP 36.5; O2SAT 98
[2023-07-03 12:41] LABS: MN% 93.4 %; PMN% 6.6 %; WBC Peritoneal Fluid 0.143 X10*3/uL
[2023-07-03 12:42] LABS: RBC Peritoneal Fluid < 0.002 X10*6/uL
--- NOTE | 2023-07-03 13:21 | MHC.CM.PN ---
Addendum entered by Mojgan Scales 07/03/23 14:52: PT IS ALERT AND RESPONSIVE, ABLE TO COMPLETE A HCP NAMING HIS BROTHER. [facility] HAS OFFERED A BED FOR STR, PT RELUCTANT ABOUT GOING THAT FAR BUT WILL THINK ABOUT IT. RN MADE AWARE. Original Note: EMR REVIEWED AND PER MD ROUNDS, PT WILL GO FOR A PARACENTESIS TODAY. REHAB REFERRALS SENT VIA [facility] , AWAITING RESPONSES. PT WOULD NOT RESPOND TO MY QUESTIONS (BLANKETS OVER HEAD) REGARDING COMPLETING A HCP, WILL CONTINUE TO ATTEMPT TO MEET WITH HIM.
[2023-07-03 13:58] LABS: BF Shift QC OK YES; Eosinophils Peritoneal Fl 2 %; Lymphocyte Peritoneal Fl 13 %; Monocytes Peritoneal Fl 3 %; Neutrophils Peritoneal Fluid 2 %; Other Peritioneal Fl 80 %
[2023-07-03 14:45] LABS: Total Protein Peritoneal Fluid 2.6 GM/DL
[2023-07-03 15:06] VITALS: BP 106/58; PULSE 93; RESP 20; TEMP 36.7; O2SAT 95
--- NOTE | 2023-07-03 15:07 | P.PNIM_ITS ---
Subjective Subjective Date of Service: 07/03/23 Interval History: Uncomfortable secondary to ascites. No other acute issues Review of Systems Denies chest pain Denies shortness of breath Denies nausea vomiting diarrhea Denies fever chills Physical Exam Vital Signs: Vital Signs: Last Vital Signs Temp 97.7 F 07/03/23 11:33 Pulse 20 L 07/03/23 11:33 Resp 20 07/03/23 11:33 BP 103/55 L 07/03/23 11:33 Pulse Ox 98 07/03/23 11:33 O2 Del Method Nasal Cannula 07/03/23 11:33 O2 Flow Rate 2 07/03/23 11:33 BMI result Body Mass Index 26.7 Const: Other: Awake alert oriented x3 no acute distress Resp: Other: Clear to auscultation bilaterally no rales rhonchi or wheezes Cardio: Other: No S4; positive S1-S2; no S3 murmurs rubs or gallops GI: Other: Protuberant with positive fluid wave Extrem: Other: No edema bilaterally Objective Data Active Medications Acetaminophen (Acetaminophen 325 Mg Tablet) 650 mg PO Q6H PRN PRN Reason: Pain, Mild (Pain Scale 1-3) Last Admin: 07/02/23 03:37 Dose: 650 mg Documented By: JUAREZ Albuterol/Ipratropium (Albuterol/Iprat 2.5/0.5mg 3 Ml Ampul.Neb) 3 ml INHALE RQ4H WHILE AWAKE PRN PRN Reason: Wheezing Last Admin: 07/01/23 14:41 Dose: 3 ml Documented By: CAMILA-KEV Benzonatate (Benzonatate 100 Mg Capsule) 200 mg PO TID PRN PRN Reason: Cough Last Admin: 07/02/23 15:01 Dose: 200 mg Documented By: JOANNE Doxycycline Monohydrate (Doxycycline Monohydrate 100 Mg Capsule) 100 mg PO Q12H [facility] Last Admin: 07/03/23 04:17 Dose: 100 mg Documented By: JENNIFER Folic Acid (Folic Acid 1 Mg Tablet) 1 mg PO DAILY [facility] Last Admin: 07/03/23 08:08 Dose: 1 mg Documented By: CTORRZ Furosemide (Furosemide 40 Mg Tablet) 40 mg PO DAILY [facility]; Protocol Last Admin: 07/03/23 08:16 Dose: Not Given Documented By: WENDY Non-Admin Reason: Bp soft Piperacillin Sod/Tazobactam (Sod 4.5 gm/ Sodium Chloride) 100 mls @ 200 mls/hr IV Q6H [facility] Last Admin: 07/03/23 14:01 Dose: 200 mls/hr Documented By: WENDY Albumin Human (Kedbumin 25 %) 100 mls @ 100 mls/hr IV Q6H [facility] Stop: 07/04/23 03:14 Last Infusion: 07/03/23 10:44 Dose: 0 mls/hr Documented By: WENDY Ondansetron HCl (Ondansetron Hcl 4 Mg/2 Ml Vial) 4 mg IVPUSH Q8H PRN PRN Reason: Nausea and Vomiting Last Admin: 07/02/23 04:48 Dose: 4 mg Documented By: JUAREZ Pharmacy Consult (Consult Rx Etoh Phenob Im/Po) 1 each MISCELLANE ONCE PRN; Protocol PRN Reason: Consult order Sodium Chloride (0.9 % Sodium Chloride Flush 3 Ml Syringe) 3 ml IVFLUSH QSHIFT [facility] Last Admin: 07/03/23 08:08 Dose: 3 ml Documented By: WENDY Spironolactone (Spironolactone 25 Mg Tablet) 25 mg PO BID@0900,1800 [facility]; P rotocol Last Admin: 07/03/23 08:16 Dose: Not Given Documented By: WENDY Non-Admin Reason: Bp soft Thiamine HCl (Thiamine Hcl 100 Mg Tablet) 100 mg PO DAILY [facility] Last Admin: 07/03/23 08:08 Dose: 100 mg Documented By: WENDY Labs 07/03/23 08:23 07/03/23 08:23 Labs: Laboratory Results - last 24 hr 07/03/23 07/03/23 07/03/23 08:23 08:23 08:23 MCV 112.6 H MCH 37.2 H MCHC 33.0 RDW 17.8 H Plt Count 93 L MPV 11.3 Immature Gran % (Auto) 0.7 H Neut % (Auto) 76.2 H Lymph % (Auto) 11.4 L Ray % (Auto) 8.0 Eos % (Auto) 2.9 Baso % (Auto) 0.8 Lymph # (Auto) 1.1 L Ray # (Auto) 0.8 Eos # (Auto) 0.3 Baso # (Auto) 0.1 Abs Immat Gran (auto) 0.07 H Absolute Neuts (auto) 7.6 Absolute Nucleated RBC 0.000 Nucleated RBC % (auto) 0.0 PT 31.3 H D INR 2.6 H Anion Gap 11 L Estim Creat Clear Calc 84.2 Estimated GFR > 60 Random Glucose 88 Calcium 8.7 Total Bilirubin 2.4 H AST 41 H ALT 12 Alkaline Phosphatase 58 Total Protein 6.9 Albumin 2.7 L Peritoneal WBC Peritoneal RBC Periton Neutrophils Periton Lymphocytes Peritoneal Monocytes Peritoneal Eosinophils Peritoneal Other Cells Peritoneal Tot Protein 07/03/23 07/03/23 10:55 10:55 MCV MCH MCHC RDW Plt Count MPV Immature Gran % (Auto) Neut % (Auto) Lymph % (Auto) Ray % (Auto) Eos % (Auto) Baso % (Auto) Lymph # (Auto) Ray # (Auto) Eos # (Auto) Baso # (Auto) Abs Immat Gran (auto) Absolute Neuts (auto) Absolute Nucleated RBC Nucleated RBC % (auto) PT INR Anion Gap Estim Creat Clear Calc Estimated GFR Random Glucose Calcium Total Bilirubin AST ALT Alkaline Phosphatase Total Protein Albumin Peritoneal WBC 0.143 Peritoneal RBC < 0.002 Periton Neutrophils 2 Periton Lymphocytes 13 Peritoneal Monocytes 3 Peritoneal Eosinophils 2 Peritoneal Other Cells 80 Peritoneal Tot Protein 2.6 Microbiology Microbiology Results: Microbiology 07/02/23 11:26 Blood Culture - Preliminary Blood - Venous No growth after 24 hours. 07/02/23 11:26 Blood Culture - Preliminary Blood - Venous No growth after 24 hours. Assessment and Plan (1) Community acquired pneumonia: Status: Acute (2) Acute CHF: Status: Acute (3) Alcoholic liver disease: Status: Acute Plan This is a 53M PMHx alcoholic dependence with cirrhosis presented with sob, cough, fevers 1.Severe sepsis(resolved)/pneumonia -ZosynDoxy(3) -if afebrile times 24 hours was switched to oral doxy as per ID recommendation 2.Acute CHF exacerbation - resolved -follow clinically 3. Cirrhosis/ascites/ Thrombocytopenia -complete 4 bottles of albumin -start oral diuresis in a.m. -follow renals/divalents 4.Chronic anemia - likely secondary to liver disease - stable hemoglobin - follow CBC Lovenox full code given pt need for IV abx he will req min 2 nights inpatient hospital stay for further management Time Spent With Patient Time: Total time managing care of this patient today ____ minutes. Quality Stroke Does the patient have a stroke diagnosis?: No VTE Prior VTE?: No VTE Risk Level:: Medical - moderate - high VTE Device Contraindication: N/A - Device Ordered VTE Drug Contraindication: Treatment Not Indicated
--- NOTE | 2023-07-03 16:26 | P.PNID_ITS ---
Subjective Subjective Date of Service: 07/03/23 Critical Care Time (minutes): 15 Comment: she looks tired but no complaints Objective Data Labs 07/03/23 08:23 07/03/23 08:23 Labs: Laboratory Results - last 24 hr 07/03/23 07/03/23 07/03/23 08:23 08:23 08:23 WBC 10.0 RBC 2.07 L Hgb 7.7 L Hct 23.3 L MCV 112.6 H MCH 37.2 H MCHC 33.0 RDW 17.8 H Plt Count 93 L MPV 11.3 Immature Gran % (Auto) 0.7 H Neut % (Auto) 76.2 H Lymph % (Auto) 11.4 L [place] % (Auto) 8.0 Eos % (Auto) 2.9 Baso % (Auto) 0.8 Lymph # (Auto) 1.1 L [place] # (Auto) 0.8 Eos # (Auto) 0.3 Baso # (Auto) 0.1 Abs Immat Gran (auto) 0.07 H Absolute Neuts (auto) 7.6 Absolute Nucleated RBC 0.000 Nucleated RBC % (auto) 0.0 PT 31.3 H D INR 2.6 H Sodium 141 Potassium 3.6 Chloride 110 H Carbon Dioxide 24 Anion Gap 11 L BUN 15 Creatinine 0.84 Estim Creat Clear Calc 84.2 Estimated GFR > 60 Random Glucose 88 Calcium 8.7 Total Bilirubin 2.4 H AST 41 H ALT 12 Alkaline Phosphatase 58 Total Protein 6.9 Albumin 2.7 L Peritoneal WBC Peritoneal RBC Periton Neutrophils Periton Lymphocytes Peritoneal Monocytes Peritoneal Eosinophils Peritoneal Other Cells Peritoneal Tot Protein 07/03/23 07/03/23 10:55 10:55 WBC RBC Hgb Hct MCV MCH MCHC RDW Plt Count MPV Immature Gran % (Auto) Neut % (Auto) Lymph % (Auto) [place] % (Auto) Eos % (Auto) Baso % (Auto) Lymph # (Auto) [place] # (Auto) Eos # (Auto) Baso # (Auto) Abs Immat Gran (auto) Absolute Neuts (auto) Absolute Nucleated RBC Nucleated RBC % (auto) PT INR Sodium Potassium Chloride Carbon Dioxide Anion Gap BUN Creatinine Estim Creat Clear Calc Estimated GFR Random Glucose Calcium Total Bilirubin AST ALT Alkaline Phosphatase Total Protein Albumin Peritoneal WBC 0.143 Peritoneal RBC < 0.002 Periton Neutrophils 2 Periton Lymphocytes 13 Peritoneal Monocytes 3 Peritoneal Eosinophils 2 Peritoneal Other Cells 80 Peritoneal Tot Protein 2.6 Microbiology Microbiology Results: Microbiology 07/03/23 10:55 Ascites Fluid Gram Stain - Final 07/02/23 11:26 Blood - Venous Blood Culture - Preliminary No growth after 24 hours. 07/02/23 11:26 Blood - Venous Blood Culture - Preliminary No growth after 24 hours. 06/24/23 19:20 Blood - Venous Blood Culture - Final No growth after 5 days. 06/24/23 Unknown Urine clean catch - Urine velasco top Urine Culture - Final 06/24/23 19:06 Blood - Venous Blood Culture - Final Coag negative Staphylococcus Physical Exam Vital Signs: Vital Signs: Last Vital Signs Temp 98.1 F 07/03/23 15:06 Pulse 93 07/03/23 15:06 Resp 20 07/03/23 15:06 BP 106/58 L 07/03/23 15:06 Pulse Ox 95 07/03/23 15:06 O2 Del Method Nasal Cannula 07/03/23 15:06 O2 Flow Rate 2 07/03/23 15:06 BMI result Body Mass Index 26.7 Const: General: cooperative HEENT: Head: Yes normal to inspection Mouth: Normal oral and palatal mucosa present Resp: Effort & Inspection: normal respiratory effort Cardio: Rate: regular rate Rhythm: regular rhythm GI: Inspection: Yes normal to inspection Skin: Other: clearing redness groin area Assessment and Plan Assessment and plan (1) Sepsis: Problem details: He has some pneumonia and left effusion Status: Acute Assessment and Plan: Since on 2 liters oxygen would continue antibiotics but hopefully transition to po Doxycycline for a week within couple days unless effusion grows and needes tap. CHeck HIV test (discussed and ordered). (2) Cellulitis: Status: Acute Time Spent With Patient Time: Total time managing care of this patient today ____ minutes.
[2023-07-03] MEDS: Spironolactone 25 MG TABLET PO (18:21)
[2023-07-03 19:02] VITALS: BP 98/56; PULSE 92; RESP 19; TEMP 36.9; O2SAT 93
[2023-07-03 23:15] VITALS: BP 114/62; PULSE 90; RESP 18; TEMP 37; O2SAT 92
[2023-07-04] MEDS: Piperacillin Sodium/Tazobactam 4.5 GM in 0.9 % Sodium Chloride 100 ML IV ×3 (02:16→13:00)
[2023-07-04] MEDS: Doxycycline Monohydrate 100 MG CAPSULE PO ×2 (03:10→15:32)
[2023-07-04] MEDS: Albumin Human 25 % 100 ML IV (03:11)
[2023-07-04 03:15] VITALS: BP 134/63; PULSE 96; RESP 18; TEMP 37; O2SAT 95
[2023-07-04 04:14] LABS: HIV AB/AG Nonreactive (Nonreactive); HIV Num 1 0.08 S/CO (0.00-0.99)
[2023-07-04 05:43] VITALS: BMI 25.0
[2023-07-04 07:25] VITALS: BP 102/60; PULSE 91; RESP 24; TEMP 37; O2SAT 94
[2023-07-04 09:28] LABS: A. Phagocytphilium DNA,RT-PCR NOT DETECTED (NOT DETECTED); Babesia Microti DNA, RT-PCR NOT DETECTED (NOT DETECTED); Borrelia Miyamotoi,DNA RT-PCR NOT DETECTED (NOT DETECTED); E.Chaffeensis DNA RT-PCR NOT DETECTED (NOT DETECTED); Lyme(Borrelia ssp)DNA RT-PCR NOT DETECTED (NOT DETECTED)
[2023-07-04] MEDS: Furosemide 40 MG TABLET PO (09:34)
[2023-07-04] MEDS: 0.9 % Sodium Chloride Flush 3 ML SYRINGE IVFLUSH ×3 (09:34→19:50)
[2023-07-04] MEDS: Spironolactone 25 MG TABLET PO ×2 (09:34→17:45)
[2023-07-04] MEDS: Thiamine HCL 100 MG TABLET PO (09:35)
[2023-07-04] MEDS: Folic Acid 1 MG TABLET PO (09:36)
[2023-07-04 11:25] VITALS: BP 110/68; PULSE 97; RESP 24; TEMP 36.6; O2SAT 93
[2023-07-04 15:04] VITALS: BP 107/58; PULSE 98; RESP 20; TEMP 36.7; O2SAT 90
--- NOTE | 2023-07-04 16:03 | PM.IDPN ---
Subjective Subjective Date of Service: 07/04/23 Critical Care Time (minutes): 15 Comment: he has no complaints,still has 2 liters and saturation in 90s Objective Data Labs 07/03/23 08:23 07/03/23 08:23 Labs: Laboratory Results - last 24 hr 06/30/23 07/03/23 17:44 15:00 A.phagocytophil DNA PCR NOT DETECTED Babesia microti DNA PCR NOT DETECTED Borrelia sp DNA (PCR) NOT DETECTED Borrelia miyamotoi (PCR) NOT DETECTED E.chaffeensis DNA (PCR) NOT DETECTED HIV 1&2 Ab/P24 Ag 4thGn Nonreactive Tick-borne Disease Ab SEE NOTE Microbiology Microbiology Results: Microbiology 07/02/23 11:26 Blood - Venous Blood Culture - Preliminary No growth after 48 hours. 07/02/23 11:26 Blood - Venous Blood Culture - Preliminary No growth after 48 hours. 07/03/23 10:55 Ascites Fluid Gram Stain - Final 07/03/23 10:55 Ascites Fluid Routine Culture - Preliminary No growth to date. 07/03/23 10:55 Ascites Fluid Anaerobic Culture - Preliminary No growth to date. 06/24/23 19:20 Blood - Venous Blood Culture - Final No growth after 5 days. 06/24/23 Unknown Urine clean catch - Urine velasco top Urine Culture - Final 06/24/23 19:06 Blood - Venous Blood Culture - Final Coag negative Staphylococcus Physical Exam Vital Signs: Vital Signs: Last Vital Signs Temp 98.0 F 07/04/23 15:04 Pulse 98 07/04/23 15:04 Resp 20 07/04/23 15:04 BP 107/58 L 07/04/23 15:04 Pulse Ox 90 L 07/04/23 15:04 O2 Del Method Room Air 07/04/23 15:04 O2 Flow Rate 2 07/04/23 07:25 BMI result Body Mass Index 25.0 Const: General: cooperative HEENT: Head: Yes normal to inspection Face and sinus: Yes normal facial exam Mouth: Normal oral and palatal mucosa present Teeth and gingiva: dentition normal Eyes: General: appearance normal, both eyes and all related structures Pupils: Equal, round and reactive pupils present Resp: Effort & Inspection: normal respiratory effort Cardio: Rate: regular rate Rhythm: regular rhythm GI: Palpation (GI): Soft to palpation and nontender : General: Yes no CVA tenderness Back/Spine/Pelvis: Back: no CVA tenderness Skin: General skin exam: no rashes or lesions noted Neuro: General: moves all extremities Cranial nerves: Yes Equal, round and reactive pupils present Extrem: General: Yes normal to inspection Psych: Appearance: grossly normal Assessment and Plan Assessment and plan (1) Acute CHF: Problem details: He has completed 11 days of antibiotics and now is afebrile with no elevated WBC or bacteremia and minimal if any oxygen requirement which can be possible CHF as well or effusion. Status: Acute (2) Community acquired pneumonia: Status: Acute (3) Sepsis: Problem details: He has some pneumonia and left effusion Status: Acute Plan Stop antibiotics at this time. Time Spent With Patient Time: Total time managing care of this patient today ____ minutes.
--- NOTE | 2023-07-04 16:41 | HO.PM.IMPN ---
Subjective Subjective Date of Service: 07/04/23 Interval History: Doing well post paracentesis. Notes improvement with breathing and abdominal pain Review of Systems Denies chest pain Denies shortness of breath Denies nausea vomiting diarrhea Denies fever chills Physical Exam Vital Signs: Vital Signs: Last Vital Signs Temp 98.0 F 07/04/23 15:04 Pulse 98 07/04/23 15:04 Resp 20 07/04/23 15:04 BP 107/58 L 07/04/23 15:04 Pulse Ox 90 L 07/04/23 15:04 O2 Del Method Room Air 07/04/23 15:04 O2 Flow Rate 2 07/04/23 07:25 BMI result Body Mass Index 25.0 Const: Other: Awake alert oriented x3 no acute distress Resp: Other: Clear to auscultation bilaterally no rales rhonchi or wheezes Cardio: Other: No S4; positive S1-S2; no S3 murmurs rubs or gallops GI: Other: Soft positive bowel sounds. No appreciable fluid wave Extrem: Other: No edema bilaterally Objective Data Active Medications Acetaminophen (Acetaminophen 325 Mg Tablet) 650 mg PO Q6H PRN PRN Reason: Pain, Mild (Pain Scale 1-3) Last Admin: 07/02/23 03:37 Dose: 650 mg Documented By: JAUREZ Albuterol/Ipratropium (Albuterol/Iprat 2.5/0.5mg 3 Ml Ampul.Neb) 3 ml INHALE RQ4H WHILE AWAKE PRN PRN Reason: Wheezing Last Admin: 07/01/23 14:41 Dose: 3 ml Documented By: CAMILA-KEV Benzonatate (Benzonatate 100 Mg Capsule) 200 mg PO TID PRN PRN Reason: Cough Last Admin: 07/02/23 15:01 Dose: 200 mg Documented By: JOANNE Folic Acid (Folic Acid 1 Mg Tablet) 1 mg PO DAILY JOSE MANUEL Last Admin: 07/04/23 09:36 Dose: 1 mg Documented By: WENDY Furosemide (Furosemide 40 Mg Tablet) 40 mg PO DAILY [facility]; Protocol Last Admin: 07/04/23 09:34 Dose: 40 mg Documented By: WENDY Ondansetron HCl (Ondansetron Hcl 4 Mg/2 Ml Vial) 4 mg IVPUSH Q8H PRN PRN Reason: Nausea and Vomiting Last Admin: 07/02/23 04:48 Dose: 4 mg Documented By: JUAREZ Pharmacy Consult (Consult Rx Etoh Phenob Im/Po) 1 each MISCELLANE ONCE PRN; Protocol PRN Reason: Consult order Sodium Chloride (0.9 % Sodium Chloride Flush 3 Ml Syringe) 3 ml IVFLUSH QSHIFT [facility] Last Admin: 07/04/23 09:34 Dose: 3 ml Documented By: WENDY Spironolactone (Spironolactone 25 Mg Tablet) 25 mg PO BID@0900,1800 [facility]; Protocol Last Admin: 07/04/23 09:34 Dose: 25 mg Documented By: WENDY Thiamine HCl (Thiamine Hcl 100 Mg Tablet) 100 mg PO DAILY [facility] Last Admin: 07/04/23 09:35 Dose: 100 mg Documented By: WENDY Labs 07/03/23 08:23 07/03/23 08:23 Labs: Laboratory Results - last 24 hr 06/30/23 07/03/23 17:44 15:00 A.phagocytophil DNA PCR NOT DETECTED Babesia microti DNA PCR NOT DETECTED Borrelia sp DNA (PCR) NOT DETECTED Borrelia miyamotoi (PCR) NOT DETECTED E.chaffeensis DNA (PCR) NOT DETECTED HIV 1&2 Ab/P24 Ag 4thGn Nonreactive Tick-borne Disease Ab SEE NOTE Microbiology Microbiology Results: Microbiology 07/02/23 11:26 Blood Culture - Preliminary Blood - Venous No growth after 48 hours. 07/02/23 11:26 Blood Culture - Preliminary Blood - Venous No growth after 48 hours. 07/03/23 10:55 Gram Stain - Final Ascites Fluid Routine Culture - Preliminary No growth to date. Anaerobic Culture - Preliminary No growth to date. Assessment and Plan (1) Sepsis: Status: Acute (2) Alcoholic liver disease: Status: Acute Plan This is a 53M PMHx alcoholic dependence with cirrhosis presented with sob, cough, fevers 1.Severe sepsis(resolved)/pneumonia -as per ID... All antibiotics DC 8 2.Acute CHF exacerbation - resolved -follow clinically 3. Cirrhosis/ascites/ Thrombocytopenia -completed 4 bottles of albumin with good results -check coags in a.m. -BP soft today. Will hold off on diuresis -follow renals/divalents 4.Chronic anemia - likely secondary to liver disease - stable hemoglobin - follow CBC Lovenox full code Will require ongoing hospitalization pending safe placement Time Spent With Patient Time: Total time managing care of this patient today ____ minutes. Quality Stroke Does the patient have a stroke diagnosis?: No VTE Prior VTE?: No VTE Risk Level:: Medical - moderate - high VTE Device Contraindication: N/A - Device Ordered VTE Drug Contraindication: Treatment Not Indicated
[2023-07-04 18:48] VITALS: BP 98/51; PULSE 92; RESP 18; TEMP 37.1; O2SAT 95
[2023-07-04 22:56] VITALS: BP 104/56; PULSE 92; RESP 18; TEMP 37.2; O2SAT 93
[2023-07-05] VITALS (7 sets, daily range): BP systolic 99–124; BP diastolic 56–67; PULSE 86–109; RESP 18–20; TEMP 36.4–37.3; O2SAT 93–97; BMI 25.8
[2023-07-05 06:39] LABS: MANUAL DIFF FLAG NO
[2023-07-05 06:46] LABS: Basophils Absolute Auto 0.1 X10*3/uL (0.0-0.2); Basophils Percent Auto 0.7 % (0-2); Eosinophils Absolute Auto 0.3 X10*3/uL (0.0-0.4); Eosinophils Percent Auto 2.9 % (0-4); Hematocrit 22.2 % (42.0-52.0); Hemoglobin 7.4 g/dl (14.0-18.0); Imm Gran Abs Auto 0.07 X10*3/uL (0.00-0.03); Imm Gran Pct Auto 0.7 % (0.0-0.4); Lymphocytes Absolute Auto 1.1 X10*3/uL (1.2-4.9); Lymphocytes Percent Auto 10.5 % (20-40); Mean Corpuscular HGB Conc 33.3 g/dl (31.0-36.0); Mean Corpuscular Hemoglobin 37.4 pg (27.0-33.0); Mean Platelet Volume 11.9 fL (9.4-12.4); Monocytes Absolute Auto 0.8 X10*3/uL (0.1-1.2); Monocytes Percent Auto 7.3 % (2-11); Neutrophils Absolute Auto 8.4 x10*3/uL (2.0-8.3); Neutrophils Percent Auto 77.9 % (45-73); Red Blood Count 1.98 X10*6/uL (4.60-5.80); Red Cell Distribution Width 17.2 % (11.0-16.0); White Blood Count 10.7 X10*3/uL (4.8-10.8)
[2023-07-05 06:55] LABS: INTERNATIONAL NORM RATIO 2.8 (0.9-1.1); Prothrombin Time 34.4 SEC (11.1-13.3)
[2023-07-05 07:02] LABS: Alanine Aminotransferase 13 U/L (0-40); Alkaline Phosphatase 53 U/L (39-117); Anion Gap 10 (12-20); Aspartate Amino Transferase 45 U/L (5-37); Bilirubin Total 2.5 mg/dL (0.0-1.0); Blood Urea Nitrogen 14 mg/dL (9-16); Calcium 8.6 mg/dL (8.4-10.2); Carbon Dioxide 24 mmol/L (22-29); Chloride 109 mmol/L (96-108); Creatinine Clr Calc Pharmacy 90.5; Estimated Glomerular Filt Rate > 60; Glucose Fasting 122 mg/dL (60-99); Mean Corpuscular Volume 112.1 fL (80.0-98.0); Platelet Count 96 X10*3/uL (160-400); Potassium 3.3 mmol/L (3.3-5.1); Sodium 140 mmol/L (135-145); Total Protein 6.8 g/dL (6.5-8.0)
[2023-07-05] MEDS: 0.9 % Sodium Chloride Flush 3 ML SYRINGE IVFLUSH ×3 (08:59→23:37)
[2023-07-05] MEDS: Thiamine HCL 100 MG TABLET PO (08:59)
[2023-07-05] MEDS: Spironolactone 25 MG TABLET PO ×2 (08:59→17:56)
[2023-07-05] MEDS: Folic Acid 1 MG TABLET PO (08:59)
[2023-07-05] MEDS: Furosemide 40 MG TABLET PO (09:00)
[2023-07-05] MEDS: Potassium Chloride Packet 20 MEQ PACKET 40 MEQ PO ×2 (09:00→23:36)
--- NOTE | 2023-07-05 16:05 | MHC.CM.PN ---
PT recommends STR, eval included on MDS which was faxed to [facility] and uploaded into [employer]. Pt D/C pending MDS approval.
--- NOTE | 2023-07-05 16:38 | P.PNIM_ITS ---
Subjective Subjective Date of Service: 07/05/23 Interval History: Now refusing rehab. No acute issues overnight Review of Systems Denies chest pain Denies shortness of breath Denies nausea vomiting diarrhea Denies fever chills Physical Exam Vital Signs: Vital Signs: Last Vital Signs Temp 98.1 F 07/05/23 15:47 Pulse 94 07/05/23 15:47 Resp 18 07/05/23 15:47 BP 114/65 07/05/23 15:47 Pulse Ox 97 07/05/23 15:47 O2 Del Method Nasal Cannula 07/05/23 15:47 O2 Flow Rate 2 07/05/23 11:44 BMI result Body Mass Index 25.8 Const: Other: Awake alert oriented x3 no acute distress Resp: Other: Clear to auscultation bilaterally no rales rhonchi or wheezes Cardio: Other: No S4; positive S1-S2; no S3 murmurs rubs or gallops GI: Other: Soft positive bowel sounds. No appreciable fluid wave Extrem: Other: No edema bilaterally Objective Data Active Medications Acetaminophen (Acetaminophen 325 Mg Tablet) 650 mg PO Q6H PRN PRN Reason: Pain, Mild (Pain Scale 1-3) Last Admin: 07/02/23 03:37 Dose: 650 mg Documented By: JUAREZ Albuterol/Ipratropium (Albuterol/Iprat 2.5/0.5mg 3 Ml Ampul.Neb) 3 ml INHALE RQ4H WHILE AWAKE PRN PRN Reason: Wheezing Last Admin: 07/01/23 14:41 Dose: 3 ml Documented By: CAMILA-KEV Benzonatate (Benzonatate 100 Mg Capsule) 200 mg PO TID PRN PRN Reason: Cough Last Admin: 07/02/23 15:01 Dose: 200 mg Documented By: JOANNE Folic Acid (Folic Acid 1 Mg Tablet) 1 mg PO DAILY JOSE MANUEL Last Admin: 07/05/23 08:59 Dose: 1 mg Documented By: CHAPINCITOORRLynn Furosemide (Furosemide 40 Mg Tablet) 40 mg PO DAILY [facility]; Protocol Last Admin: 07/05/23 09:00 Dose: 40 mg Documented By: WENDY Phytonadione 10 mg/ Sodium (Chloride) 51 mls @ 51 mls/hr IV ONCE ONE Stop: 07/05/23 17:35 Ondansetron HCl (Ondansetron Hcl 4 Mg/2 Ml Vial) 4 mg IVPUSH Q8H PRN PRN Reason: Nausea and Vomiting Last Admin: 07/02/23 04:48 Dose: 4 mg Documented By: JUAREZ Pharmacy Consult (Consult Rx Etoh Phenob Im/Po) 1 each MISCELLANE ONCE PRN; Protocol PRN Reason: Consult order Potassium Chloride (Potassium Chloride Packet 20 Meq Packet) 40 meq PO BID [facility] Last Admin: 07/05/23 09:00 Dose: 40 meq Documented By: WENDY Sodium Chloride (0.9 % Sodium Chloride Flush 3 Ml Syringe) 3 ml IVFLUSH QSHIFT [facility] Last Admin: 07/05/23 08:59 Dose: 3 ml Documented By: WENDY Spironolactone (Spironolactone 25 Mg Tablet) 25 mg PO BID@0900,1800 [facility]; Protocol Last Admin: 07/05/23 08:59 Dose: 25 mg Documented By: WENDY Thiamine HCl (Thiamine Hcl 100 Mg Tablet) 100 mg PO DAILY [facility] Last Admin: 07/05/23 08:59 Dose: 100 mg Documented By: WENDY Labs 07/05/23 06:27 07/05/23 06:27 Labs: Laboratory Results - last 24 hr 07/05/23 07/05/23 07/05/23 06:27 06:27 06:27 MCV 112.1 H MCH 37.4 H MCHC 33.3 RDW 17.2 H Plt Count 96 L MPV 11.9 Immature Gran % (Auto) 0.7 H Neut % (Auto) 77.9 H Lymph % (Auto) 10.5 L [place] % (Auto) 7.3 Eos % (Auto) 2.9 Baso % (Auto) 0.7 Lymph # (Auto) 1.1 L [place] # (Auto) 0.8 Eos # (Auto) 0.3 Baso # (Auto) 0.1 Abs Immat Gran (auto) 0.07 H Absolute Neuts (auto) 8.4 H Absolute Nucleated RBC 0.000 Nucleated RBC % (auto) 0.0 PT 34.4 H INR 2.8 H Anion Gap 10 L Estim Creat Clear Calc 90.5 Estimated GFR > 60 Fasting Glucose 122 H Calcium 8.6 Total Bilirubin 2.5 H AST 45 H ALT 13 Alkaline Phosphatase 53 Total Protein 6.8 Albumin 3.0 L Microbiology Microbiology Results: Microbiology 07/03/23 10:55 Gram Stain - Final Ascites Fluid Routine Culture - Final No growth after 2 days Anaerobic Culture - Preliminary No growth to date. 07/02/23 11:26 Blood Culture - Preliminary Blood - Venous No growth after 48 hours. 07/02/23 11:26 Blood Culture - Preliminary Blood - Venous No growth after 48 hours. Assessment and Plan (1) Cirrhosis: Status: Acute (2) Thrombocytopenia: Status: Acute Plan This is a 53M PMHx alcoholic dependence with cirrhosis presented with sob, cough, fevers 1.3. Cirrhosis/ascites/ Thrombocytopenia -completed 4 bottles of albumin with good results -INR is rising. . . Vitamin K 10 mg IV -BP not able to tolerate diuresis -follow renals/divalents 2.Severe sepsis(resolved)/pneumonia -as per ID... All antibiotics DC 8 3.Acute CHF exacerbation - resolved -follow clinically 4.Chronic anemia - likely secondary to liver disease - stable hemoglobin - follow CBC Lovenox full code Will require ongoing hospitalization pending safe placement Time Spent With Patient Time: Total time managing care of this patient today ____ minutes. Quality Stroke Does the patient have a stroke diagnosis?: No VTE Prior VTE?: No VTE Risk Level:: Medical - moderate - high VTE Device Contraindication: N/A - Device Ordered VTE Drug Contraindication: Treatment Not Indicated
[2023-07-05] MEDS: Phytonadione (Vit K1) 10 MG in 0.9 % Sodium Chloride 50 ML 51 MG IV (18:57)
[2023-07-06] VITALS (7 sets, daily range): BP systolic 92–112; BP diastolic 49–57; PULSE 68–111; RESP 18–21; TEMP 36.4–37.3; O2SAT 88–98; BMI 25.2
[2023-07-06 06:07] LABS: INTERNATIONAL NORM RATIO 2.8 (0.9-1.1); Prothrombin Time 34.3 SEC (11.1-13.3)
[2023-07-06 06:07] LABS: MANUAL DIFF FLAG NO
[2023-07-06 06:09] LABS: Basophils Absolute Auto 0.1 X10*3/uL (0.0-0.2); Basophils Percent Auto 0.9 % (0-2); Eosinophils Absolute Auto 0.3 X10*3/uL (0.0-0.4); Eosinophils Percent Auto 2.5 % (0-4); Hematocrit 21.4 % (42.0-52.0); Hemoglobin 7.1 g/dl (14.0-18.0); Imm Gran Abs Auto 0.07 X10*3/uL (0.00-0.03); Imm Gran Pct Auto 0.7 % (0.0-0.4); Lymphocytes Absolute Auto 1.1 X10*3/uL (1.2-4.9); Lymphocytes Percent Auto 11.2 % (20-40); Mean Corpuscular HGB Conc 33.2 g/dl (31.0-36.0); Mean Corpuscular Hemoglobin 36.8 pg (27.0-33.0); Mean Corpuscular Volume 110.9 fL (80.0-98.0); Mean Platelet Volume 12.1 fL (9.4-12.4); Monocytes Absolute Auto 0.9 X10*3/uL (0.1-1.2); Neutrophils Absolute Auto 7.6 x10*3/uL (2.0-8.3); Neutrophils Percent Auto 75.7 % (45-73); Platelet Count 94 X10*3/uL (160-400); Red Blood Count 1.93 X10*6/uL (4.60-5.80); Red Cell Distribution Width 17.2 % (11.0-16.0)
[2023-07-06 06:34] LABS: Alanine Aminotransferase 11 U/L (0-40); Albumin Level 2.8 g/dL (3.5-5.0); Alkaline Phosphatase 59 U/L (39-117); Anion Gap 10 (12-20); Aspartate Amino Transferase 42 U/L (5-37); Bilirubin Total 2.4 mg/dL (0.0-1.0); Blood Urea Nitrogen 13 mg/dL (9-16); Calcium 8.8 mg/dL (8.4-10.2); Carbon Dioxide 23 mmol/L (22-29); Chloride 111 mmol/L (96-108); Creatinine Clr Calc Pharmacy 95.9; Estimated Glomerular Filt Rate > 60; Glucose Fasting 89 mg/dL (60-99); Potassium 4.4 mmol/L (3.3-5.1); Sodium 140 mmol/L (135-145); Total Protein 6.7 g/dL (6.5-8.0)
[2023-07-06] MEDS: Phytonadione (Vit K1) 10 MG in 0.9 % Sodium Chloride 50 ML 51 MG IV (08:38)
[2023-07-06] MEDS: 0.9 % Sodium Chloride Flush 3 ML SYRINGE IVFLUSH ×3 (08:42→22:57)
[2023-07-06] MEDS: Furosemide 40 MG TABLET PO (08:45)
[2023-07-06] MEDS: Thiamine HCL 100 MG TABLET PO (08:45)
[2023-07-06] MEDS: Spironolactone 25 MG TABLET PO ×2 (08:45→16:55)
[2023-07-06] MEDS: Folic Acid 1 MG TABLET PO (08:45)
[2023-07-06] MEDS: Potassium Chloride Packet 20 MEQ PACKET 40 MEQ PO ×2 (08:45→22:55)
--- NOTE | 2023-07-06 13:20 | HO.PM.IMPN ---
Subjective Subjective Date of Service: 07/06/23 Interval History: Continues to require vitamin K secondary to poor synthetic function. 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 When question, he states he has no intention of stopping alcohol and again understands the consequences Review of Systems Denies chest pain Denies shortness of breath Denies nausea vomiting diarrhea Denies fever chills Physical Exam Vital Signs: Vital Signs: Last Vital Signs Temp 98.2 F 07/06/23 11:29 Pulse 89 07/06/23 11:29 Resp 20 07/06/23 11:29 BP 112/49 L 07/06/23 11:29 Pulse Ox 98 07/06/23 11:29 O2 Del Method Nasal Cannula 07/06/23 11:29 O2 Flow Rate 2 07/06/23 11:29 BMI result Body Mass Index 25.2 Const: Other: Awake alert oriented x3 no acute distress Resp: Other: Clear to auscultation bilaterally no rales rhonchi or wheezes Cardio: Other: No S4; positive S1-S2; no S3 murmurs rubs or gallops GI: Other: Soft positive bowel sounds. No appreciable fluid wave Extrem: Other: No edema bilaterally Objective Data Active Medications Acetaminophen (Acetaminophen 325 Mg Tablet) 650 mg PO Q6H PRN PRN Reason: Pain, Mild (Pain Scale 1-3) Last Admin: 07/02/23 03:37 Dose: 650 mg Documented By: JUAREZ Albuterol/Ipratropium (Albuterol/Iprat 2.5/0.5mg 3 Ml Ampul.Neb) 3 ml INHALE RQ4H WHILE AWAKE PRN PRN Reason: Wheezing Last Admin: 07/01/23 14:41 Dose: 3 ml Documented By: JOANNE Benzonatate (Benzonatate 100 Mg Capsule) 200 mg PO TID PRN PRN Reason: Cough Last Admin: 07/02/23 15:01 Dose: 200 mg Documented By: JOANNE Folic Acid (Folic Acid 1 Mg Tablet) 1 mg PO DAILY JOSE MANUEL Last Admin: 07/06/23 08:45 Dose: 1 mg Documented By: VADIM Furosemide (Furosemide 40 Mg Tablet) 40 mg PO DAILY [facility]; Protocol Last Admin: 07/06/23 08:45 Dose: 40 mg Documented By: VADIM Ondansetron HCl (Ondansetron Hcl 4 Mg/2 Ml Vial) 4 mg IVPUSH Q8H PRN PRN Reason: Nausea and Vomiting Last Admin: 07/02/23 04:48 Dose: 4 mg Documented By: JUAREZ Pharmacy Consult (Consult Rx Etoh Phenob Im/Po) 1 each MISCELLANE ONCE PRN; Protocol PRN Reason: Consult order Potassium Chloride (Potassium Chloride Packet 20 Meq Packet) 40 meq PO BID ON LICENSE OF [facility] Last Admin: 07/06/23 08:45 Dose: 40 meq Documented By: VADIM Sodium Chloride (0.9 % Sodium Chloride Flush 3 Ml Syringe) 3 ml IVFLUSH QSHIFT ON LICENSE OF [facility] Last Admin: 07/06/23 08:42 Dose: 3 ml Documented By: VADIM Spironolactone (Spironolactone 25 Mg Tablet) 25 mg PO BID@0900,1800 ON LICENSE OF [facility]; Protocol Last Admin: 07/06/23 08:45 Dose: 25 mg Documented By: VADIM Thiamine HCl (Thiamine Hcl 100 Mg Tablet) 100 mg PO DAILY ON LICENSE OF [facility] Last Admin: 07/06/23 08:45 Dose: 100 mg Documented By: VADIM Labs 07/06/23 05:40 07/06/23 05:30 Labs: Laboratory Results - last 24 hr 07/06/23 07/06/23 07/06/23 05:30 05:30 05:40 MCV 110.9 H MCH 36.8 H MCHC 33.2 RDW 17.2 H Plt Count 94 L MPV 12.1 Immature Gran % (Auto) 0.7 H Neut % (Auto) 75.7 H Lymph % (Auto) 11.2 L [place] % (Auto) 9.0 Eos % (Auto) 2.5 Baso % (Auto) 0.9 Lymph # (Auto) 1.1 L [place] # (Auto) 0.9 Eos # (Auto) 0.3 Baso # (Auto) 0.1 Abs Immat Gran (auto) 0.07 H Absolute Neuts (auto) 7.6 Absolute Nucleated RBC 0.000 Nucleated RBC % (auto) 0.0 PT 34.3 H INR 2.8 H Anion Gap 10 L Estim Creat Clear Calc 95.9 Estimated GFR > 60 Fasting Glucose 89 Calcium 8.8 Total Bilirubin 2.4 H AST 42 H ALT 11 Alkaline Phosphatase 59 Total Protein 6.7 Albumin 2.8 L Microbiology Microbiology Results: Microbiology 07/03/23 10:55 Gram Stain - Final Ascites Fluid Routine Culture - Final No growth after 2 days Anaerobic Culture - Preliminary No growth to date. Assessment and Plan (1) Cirrhosis: Status: Acute (2) Thrombocytopenia: Status: Acute Plan This is a 53M PMHx alcoholic dependence with cirrhosis presented with sob, cough, fevers 1.Cirrhosis/ascites/ Thrombocytopenia -synthetic function poor. -INR is rising. . . Vitamin K 10 mg IV daily (2) -BP not able to tolerate diuresis -follow renals/divalents 2.Severe sepsis(resolved)/pneumonia -as per ID... All antibiotics DC 8 3.Acute CHF exacerbation - resolved -follow clinically 4.Chronic anemia - likely secondary to liver disease - stable hemoglobin - follow CBC Lovenox full code Will require ongoing hospitalization pending safe placement; will discuss with family as patient refusing rehab. Will continue to replete vitamin K as tolerated Time Spent With Patient Time: Total time managing care of this patient today ____ minutes. Quality Stroke Does the patient have a stroke diagnosis?: No VTE Prior VTE?: No VTE Risk Level:: Medical - moderate - high VTE Device Contraindication: N/A - Device Ordered VTE Drug Contraindication: Treatment Not Indicated
[2023-07-07] VITALS (12 sets, daily range): BP systolic 93–120; BP diastolic 56–64; PULSE 86–97; RESP 14–22; TEMP 36.7–37.4; O2SAT 93–96; BMI 24.6
[2023-07-07 06:26] LABS: Basophils Absolute Auto 0.1 X10*3/uL (0.0-0.2); Basophils Percent Auto 0.8 % (0-2); Eosinophils Absolute Auto 0.3 X10*3/uL (0.0-0.4); Eosinophils Percent Auto 3.3 % (0-4); Imm Gran Abs Auto 0.05 X10*3/uL (0.00-0.03); Imm Gran Pct Auto 0.6 % (0.0-0.4); Lymphocytes Absolute Auto 1.3 X10*3/uL (1.2-4.9); Lymphocytes Percent Auto 14.3 % (20-40); Mean Corpuscular HGB Conc 32.5 g/dl (31.0-36.0); Mean Corpuscular Hemoglobin 35.9 pg (27.0-33.0); Mean Platelet Volume 11.8 fL (9.4-12.4); Monocytes Absolute Auto 0.7 X10*3/uL (0.1-1.2); Monocytes Percent Auto 7.8 % (2-11); Neutrophils Absolute Auto 6.5 x10*3/uL (2.0-8.3); Neutrophils Percent Auto 73.2 % (45-73); Red Blood Count 1.84 X10*6/uL (4.60-5.80); Red Cell Distribution Width 16.8 % (11.0-16.0); White Blood Count 8.9 X10*3/uL (4.8-10.8)
[2023-07-07 06:27] LABS: Mean Corpuscular Volume 110.3 fL (80.0-98.0); Platelet Count 93 X10*3/uL (160-400)
[2023-07-07 06:31] LABS: Hemoglobin 6.6 g/dl (14.0-18.0)
[2023-07-07 06:32] LABS: Hematocrit 20.3 % (42.0-52.0); MANUAL DIFF FLAG SCAN
[2023-07-07 06:39] LABS: INTERNATIONAL NORM RATIO 2.8 (0.9-1.1); Prothrombin Time 33.6 SEC (11.1-13.3)
[2023-07-07 06:43] LABS: Alanine Aminotransferase 12 U/L (0-40); Albumin Level 2.7 g/dL (3.5-5.0); Alkaline Phosphatase 59 U/L (39-117); Anion Gap 12 (12-20); Aspartate Amino Transferase 40 U/L (5-37); Bilirubin Total 2.5 mg/dL (0.0-1.0); Blood Urea Nitrogen 13 mg/dL (9-16); Calcium 8.8 mg/dL (8.4-10.2); Carbon Dioxide 21 mmol/L (22-29); Chloride 110 mmol/L (96-108); Creatinine Clr Calc Pharmacy 97.3; Estimated Glomerular Filt Rate > 60; Glucose Fasting 90 mg/dL (60-99); Potassium 4.6 mmol/L (3.3-5.1); Sodium 138 mmol/L (135-145); Total Protein 6.6 g/dL (6.5-8.0)
[2023-07-07 06:47] LABS: SLIDE REVIEW VERIFIED
[2023-07-07] MEDS: Folic Acid 1 MG TABLET PO (09:00)
[2023-07-07] MEDS: Potassium Chloride Packet 20 MEQ PACKET 40 MEQ PO ×2 (09:00→20:59)
[2023-07-07] MEDS: Furosemide 40 MG TABLET PO (09:00)
[2023-07-07] MEDS: Thiamine HCL 100 MG TABLET PO (09:00)
[2023-07-07] MEDS: Spironolactone 25 MG TABLET PO ×2 (09:00→17:24)
[2023-07-07] MEDS: Phytonadione (Vit K1) Oral 10 MG/ML AMPUL PO (09:01)
[2023-07-07] MEDS: 0.9 % Sodium Chloride Flush 3 ML SYRINGE IVFLUSH ×2 (09:08→20:59)
[2023-07-07] MEDS: Phytonadione (Vit K1) 10 MG in 0.9 % Sodium Chloride 50 ML 51 MG IV (09:17)
[2023-07-07] MEDS: Acetaminophen 325 MG TABLET 650 MG PO (13:16)
--- NOTE | 2023-07-07 15:07 | MHC.CM.PN ---
EMR reviewed and per MD rounds, pt is not medically cleared for D/C due to low H&H requiring blood transfusion today. CM will continue to follow.
--- NOTE | 2023-07-07 15:57 | HO.PM.IMPN ---
Subjective Subjective Date of Service: 07/07/23 Interval History: Feels better overall. Willing to consider Medical rehab Review of Systems Denies chest pain Denies shortness of breath Denies nausea vomiting diarrhea Denies fever chills Physical Exam Vital Signs: Vital Signs: Last Vital Signs Temp 99.1 F 07/07/23 15:49 Pulse 86 07/07/23 15:49 Resp 14 07/07/23 15:49 BP 110/60 07/07/23 15:49 Pulse Ox 95 07/07/23 15:49 O2 Del Method Nasal Cannula 07/07/23 15:49 O2 Flow Rate 2 07/07/23 15:49 BMI result Body Mass Index 24.6 Const: Other: Awake alert oriented x3 no acute distress Resp: Other: Clear to auscultation bilaterally no rales rhonchi or wheezes Cardio: Other: No S4; positive S1-S2; no S3 murmurs rubs or gallops GI: Other: Soft positive bowel sounds. No appreciable fluid wave Extrem: Other: No edema bilaterally Objective Data Active Medications Acetaminophen (Acetaminophen 325 Mg Tablet) 650 mg PO Q6H PRN PRN Reason: Pain, Mild (Pain Scale 1-3) Last Admin: 07/07/23 13:16 Dose: 650 mg Documented By: VADIM Albuterol/Ipratropium (Albuterol/Iprat 2.5/0.5mg 3 Ml Ampul.Neb) 3 ml INHALE RQ4H WHILE AWAKE PRN PRN Reason: Wheezing Last Admin: 07/01/23 14:41 Dose: 3 ml Documented By: CAMILA-KEV Benzonatate (Benzonatate 100 Mg Capsule) 200 mg PO TID PRN PRN Reason: Cough Last Admin: 07/02/23 15:01 Dose: 200 mg Documented By: JOANNE Folic Acid (Folic Acid 1 Mg Tablet) 1 mg PO DAILY JOSE MANUEL Last Admin: 07/07/23 09:00 Dose: 1 mg Documented By: VADIM Furosemide (Furosemide 40 Mg Tablet) 40 mg PO DAILY [facility]; Protocol Last Admin: 07/07/23 09:00 Dose: 40 mg Documented By: VADIM Ondansetron HCl (Ondansetron Hcl 4 Mg/2 Ml Vial) 4 mg IVPUSH Q8H PRN PRN Reason: Nausea and Vomiting Last Admin: 07/02/23 04:48 Dose: 4 mg Documented By: JUAREZ Pharmacy Consult (Consult Rx Etoh Phenob Im/Po) 1 each MISCELLANE ONCE PRN; Protocol PRN Reason: Consult order Potassium Chloride (Potassium Chloride Packet 20 Meq Packet) 40 meq PO BID [facility] Last Admin: 07/07/23 09:00 Dose: 40 meq Documented By: VADIM Sodium Chloride (0.9 % Sodium Chloride Flush 3 Ml Syringe) 3 ml IVFLUSH QSHIFT [facility] Last Admin: 07/07/23 09:08 Dose: 3 ml Documented By: VADIM Spironolactone (Spironolactone 25 Mg Tablet) 25 mg PO BID@0900,1800 [facility]; Protocol Last Admin: 07/07/23 09:00 Dose: 25 mg Documented By: VADIM Thiamine HCl (Thiamine Hcl 100 Mg Tablet) 100 mg PO DAILY [facility] Last Admin: 07/07/23 09:00 Dose: 100 mg Documented By: VADIM Labs 07/07/23 05:49 07/07/23 05:49 Labs: Laboratory Results - last 24 hr 07/07/23 07/07/23 07/07/23 05:49 05:49 05:49 MCV 110.3 H MCH 35.9 H MCHC 32.5 RDW 16.8 H Plt Count 93 L MPV 11.8 Immature Gran % (Auto) 0.6 H Neut % (Auto) 73.2 H Lymph % (Auto) 14.3 L [place] % (Auto) 7.8 Eos % (Auto) 3.3 Baso % (Auto) 0.8 Lymph # (Auto) 1.3 [place] # (Auto) 0.7 Eos # (Auto) 0.3 Baso # (Auto) 0.1 Abs Immat Gran (auto) 0.05 H Absolute Neuts (auto) 6.5 Absolute Nucleated RBC 0.000 Nucleated RBC % (auto) 0.0 Smear Tech's Comments VERIFIED PT 33.6 H INR 2.8 H Anion Gap 12 Estim Creat Clear Calc 97.3 Estimated GFR > 60 Fasting Glucose 90 Calcium 8.8 Total Bilirubin 2.5 H AST 40 H ALT 12 Alkaline Phosphatase 59 Total Protein 6.6 Albumin 2.7 L Blood Type Antibody Screen Crossmatch 07/07/23 07:46 MCV MCH MCHC RDW Plt Count MPV Immature Gran % (Auto) Neut % (Auto) Lymph % (Auto) [place] % (Auto) Eos % (Auto) Baso % (Auto) Lymph # (Auto) [place] # (Auto) Eos # (Auto) Baso # (Auto) Abs Immat Gran (auto) Absolute Neuts (auto) Absolute Nucleated RBC Nucleated RBC % (auto) Smear Tech's Comments PT INR Anion Gap Estim Creat Clear Calc Estimated GFR Fasting Glucose Calcium Total Bilirubin AST ALT Alkaline Phosphatase Total Protein Albumin Blood Type B Positive Antibody Screen NEGATIVE Crossmatch See Detail Microbiology Microbiology Results: Microbiology 07/02/23 11:26 Blood Culture - Final Blood - Venous No growth after 5 days. 07/02/23 11:26 Blood Culture - Final Blood - Venous No growth after 5 days. 07/03/23 10:55 Gram Stain - Final Ascites Fluid Routine Culture - Final No growth after 2 days Anaerobic Culture - Preliminary No growth to date. Assessment and Plan (1) Cirrhosis: Status: Acute (2) Thrombocytopenia: Status: Acute Plan This is a 53M PMHx alcoholic dependence with cirrhosis presented with sob, cough, fevers 1.Cirrhosis/ascites/ Thrombocytopenia -synthetic function poor. -INR remains elevated despite daily IV vitamin K. Will replete once again with IV vitamin K and schedule 10 mg of vitamin K daily -follow-up coags daily -follow renals/divalents 2.Severe sepsis(resolved)/pneumonia -as per ID... All antibiotics DC 8 3.Acute CHF exacerbation - resolved -follow clinically 4.Chronic anemia - likely secondary to liver disease - require 2 units packed red cells today for hemoglobin 6.6 without obvious bleeding - follow CBC Lovenox full code Will require ongoing hospitalization pending safe placement; will discuss with family as patient refusing rehab. Will continue to replete vitamin K as tolerated Time Spent With Patient Time: Total time managing care of this patient today ____ minutes. Quality Stroke Does the patient have a stroke diagnosis?: No VTE Prior VTE?: No VTE Risk Level:: Medical - moderate - high VTE Device Contraindication: N/A - Device Ordered VTE Drug Contraindication: Treatment Not Indicated
[2023-07-08] VITALS (8 sets, daily range): BP systolic 90–114; BP diastolic 52–73; PULSE 82–93; RESP 16–20; TEMP 36.3–38.4; O2SAT 94–97; BMI 24.7
[2023-07-08] MEDS: Acetaminophen 325 MG TABLET 650 MG PO (00:33)
[2023-07-08 08:41] LABS: MANUAL DIFF FLAG NO
[2023-07-08 08:43] LABS: Basophils Absolute Auto 0.1 X10*3/uL (0.0-0.2); Eosinophils Absolute Auto 0.4 X10*3/uL (0.0-0.4); Eosinophils Percent Auto 3.6 % (0-4); Hematocrit 28.7 % (42.0-52.0); Hemoglobin 9.8 g/dl (14.0-18.0); Imm Gran Abs Auto 0.15 X10*3/uL (0.00-0.03); Imm Gran Pct Auto 1.4 % (0.0-0.4); Lymphocytes Absolute Auto 1.5 X10*3/uL (1.2-4.9); Lymphocytes Percent Auto 13.3 % (20-40); Mean Corpuscular HGB Conc 34.1 g/dl (31.0-36.0); Mean Corpuscular Hemoglobin 34.8 pg (27.0-33.0); Mean Corpuscular Volume 101.8 fL (80.0-98.0); Mean Platelet Volume 11.7 fL (9.4-12.4); Monocytes Absolute Auto 0.9 X10*3/uL (0.1-1.2); Monocytes Percent Auto 8.4 % (2-11); Neutrophils Absolute Auto 7.9 x10*3/uL (2.0-8.3); Neutrophils Percent Auto 72.3 % (45-73); Red Blood Count 2.82 X10*6/uL (4.60-5.80); Red Cell Distribution Width 21.3 % (11.0-16.0); White Blood Count 10.9 X10*3/uL (4.8-10.8)
[2023-07-08 08:46] LABS: Platelet Count 92 X10*3/uL (160-400)
[2023-07-08 08:54] LABS: INTERNATIONAL NORM RATIO 2.6 (0.9-1.1); Prothrombin Time 31.4 SEC (11.1-13.3)
[2023-07-08 08:59] LABS: Alanine Aminotransferase 12 U/L (0-40); Albumin Level 2.8 g/dL (3.5-5.0); Alkaline Phosphatase 65 U/L (39-117); Anion Gap 12 (12-20); Aspartate Amino Transferase 40 U/L (5-37); Bilirubin Total 5.4 mg/dL (0.0-1.0); Blood Urea Nitrogen 15 mg/dL (9-16); Calcium 9.2 mg/dL (8.4-10.2); Carbon Dioxide 20 mmol/L (22-29); Chloride 110 mmol/L (96-108); Creatinine Clr Calc Pharmacy 98.8; Estimated Glomerular Filt Rate > 60; Glucose Random 86 mg/dL (60-115); Potassium 4.9 mmol/L (3.3-5.1); Sodium 137 mmol/L (135-145); Total Protein 7.2 g/dL (6.5-8.0)
[2023-07-08] MEDS: 0.9 % Sodium Chloride Flush 3 ML SYRINGE IVFLUSH ×3 (09:09→19:51)
[2023-07-08] MEDS: Potassium Chloride Packet 20 MEQ PACKET 40 MEQ PO ×2 (09:10→19:51)
[2023-07-08] MEDS: Folic Acid 1 MG TABLET PO (09:10)
[2023-07-08] MEDS: Thiamine HCL 100 MG TABLET PO (09:10)
[2023-07-08] MEDS: Furosemide 40 MG TABLET PO (09:10)
[2023-07-08] MEDS: Spironolactone 25 MG TABLET PO ×2 (09:10→18:19)
--- NOTE | 2023-07-08 13:23 | HO.PM.IMPN ---
Subjective Subjective Date of Service: 07/08/23 Interval History: Feels well. Tolerating therapies. No acute issues overnight Review of Systems Denies chest pain Denies shortness of breath Denies nausea vomiting diarrhea Denies fever chills Physical Exam Vital Signs: Vital Signs: Last Vital Signs Temp 97.3 F 07/08/23 11:12 Pulse 87 07/08/23 11:12 Resp 16 07/08/23 11:12 BP 100/62 07/08/23 11:12 Pulse Ox 96 07/08/23 11:12 O2 Del Method Nasal Cannula 07/08/23 11:12 O2 Flow Rate 2 07/08/23 11:12 BMI result Body Mass Index 24.7 Const: Other: Awake alert oriented x3 no acute distress Resp: Other: Clear to auscultation bilaterally no rales rhonchi or wheezes Cardio: Other: No S4; positive S1-S2; no S3 murmurs rubs or gallops GI: Other: Soft positive bowel sounds. No appreciable fluid wave Extrem: Other: No edema bilaterally Objective Data Active Medications Acetaminophen (Acetaminophen 325 Mg Tablet) 650 mg PO Q6H PRN PRN Reason: Pain, Mild (Pain Scale 1-3) Last Admin: 07/08/23 00:33 Dose: 650 mg Documented By: WHELAN Albuterol/Ipratropium (Albuterol/Iprat 2.5/0.5mg 3 Ml Ampul.Neb) 3 ml INHALE RQ4H WHILE AWAKE PRN PRN Reason: Wheezing Last Admin: 07/01/23 14:41 Dose: 3 ml Documented By: CAMILA-RIVCHENTE Benzonatate (Benzonatate 100 Mg Capsule) 200 mg PO TID PRN PRN Reason: Cough Last Admin: 07/02/23 15:01 Dose: 200 mg Documented By: JOANNE Folic Acid (Folic Acid 1 Mg Tablet) 1 mg PO DAILY [facility] Last Admin: 07/08/23 09:10 Dose: 1 mg Documented By: CHAPINCITOORRLynn Furosemide (Furosemide 40 Mg Tablet) 40 mg PO DAILY [facility]; Protocol Last Admin: 07/08/23 09:10 Dose: 40 mg Documented By: WENDY Ondansetron HCl (Ondansetron Hcl 4 Mg/2 Ml Vial) 4 mg IVPUSH Q8H PRN PRN Reason: Nausea and Vomiting Last Admin: 07/02/23 04:48 Dose: 4 mg Documented By: JUAREZ Pharmacy Consult (Consult Rx Etoh Phenob Im/Po) 1 each MISCELLANE ONCE PRN; Protocol PRN Reason: Consult order Phytonadione (Phytonadione (Vit K1) Oral 10 Mg/Ml Ampul) 10 mg PO BID ONE Stop: 07/08/23 13:22 Potassium Chloride (Potassium Chloride Packet 20 Meq Packet) 40 meq PO BID [facility] Last Admin: 07/08/23 09:10 Dose: 40 meq Documented By: WENDY Sodium Chloride (0.9 % Sodium Chloride Flush 3 Ml Syringe) 3 ml IVFLUSH QSHIFT [facility] Last Admin: 07/08/23 09:09 Dose: 3 ml Documented By: WENDY Spironolactone (Spironolactone 25 Mg Tablet) 25 mg PO BID@0900,1800 [facility]; Protocol Last Admin: 07/08/23 09:10 Dose: 25 mg Documented By: WENDY Thiamine HCl (Thiamine Hcl 100 Mg Tablet) 100 mg PO DAILY [facility] Last Admin: 07/08/23 09:10 Dose: 100 mg Documented By: WENDY Labs 07/08/23 08:18 07/08/23 08:18 Labs: Laboratory Results - last 24 hr 07/07/23 07/08/23 07/08/23 07:46 08:18 08:18 MCV 101.8 H D MCH 34.8 H MCHC 34.1 RDW 21.3 H Plt Count 92 L MPV 11.7 Immature Gran % (Auto) 1.4 H Neut % (Auto) 72.3 Lymph % (Auto) 13.3 L [place] % (Auto) 8.4 Eos % (Auto) 3.6 Baso % (Auto) 1.0 Lymph # (Auto) 1.5 [place] # (Auto) 0.9 Eos # (Auto) 0.4 Baso # (Auto) 0.1 Abs Immat Gran (auto) 0.15 H Absolute Neuts (auto) 7.9 Absolute Nucleated RBC 0.000 Nucleated RBC % (auto) 0.0 PT 31.4 H INR 2.6 H Anion Gap Estim Creat Clear Calc Estimated GFR Random Glucose Calcium Total Bilirubin AST ALT Alkaline Phosphatase Total Protein Albumin Blood Type B Positive Antibody Screen NEGATIVE Crossmatch See Detail 07/08/23 08:18 MCV MCH MCHC RDW Plt Count MPV Immature Gran % (Auto) Neut % (Auto) Lymph % (Auto) [place] % (Auto) Eos % (Auto) Baso % (Auto) Lymph # (Auto) [place] # (Auto) Eos # (Auto) Baso # (Auto) Abs Immat Gran (auto) Absolute Neuts (auto) Absolute Nucleated RBC Nucleated RBC % (auto) PT INR Anion Gap 12 Estim Creat Clear Calc 98.8 Estimated GFR > 60 Random Glucose 86 Calcium 9.2 Total Bilirubin 5.4 H AST 40 H ALT 12 Alkaline Phosphatase 65 Total Protein 7.2 Albumin 2.8 L Blood Type Antibody Screen Crossmatch Microbiology Microbiology Results: Microbiology 07/03/23 10:55 Gram Stain - Final Ascites Fluid Routine Culture - Final No growth after 2 days Anaerobic Culture - Final NO GROWTH AFTER 5 DAYS 07/02/23 11:26 Blood Culture - Final Blood - Venous No growth after 5 days. 07/02/23 11:26 Blood Culture - Final Blood - Venous No growth after 5 days. Assessment and Plan (1) Cirrhosis: Status: Acute (2) Thrombocytopenia: Status: Acute Plan This is a 53M PMHx alcoholic dependence with cirrhosis presented with sob, cough, fevers 1.Cirrhosis/ascites/ Thrombocytopenia -synthetic function poor. -INR remains elevated despite daily IV vitamin K. will give additional dose vitamin K IV today and schedule vitamin K orally b.i.d. -follow-up coags daily -follow renals/divalents 2.Severe sepsis(resolved)/pneumonia -as per ID... All antibiotics DC 8 3.Acute CHF exacerbation - resolved -follow clinically 4.Chronic anemia - likely secondary to liver disease - excellent response to transfusion - follow CBC Lovenox full code Will require ongoing hospitalization pending safe placement; will discuss with family as patient refusing rehab. Will continue to replete vitamin K as tolerated Time Spent With Patient Time: Total time managing care of this patient today ____ minutes. Quality Stroke Does the patient have a stroke diagnosis?: No VTE Prior VTE?: No VTE Risk Level:: Medical - moderate - high VTE Device Contraindication: N/A - Device Ordered VTE Drug Contraindication: Treatment Not Indicated
[2023-07-08] MEDS: Phytonadione (Vit K1) Oral 10 MG/ML AMPUL PO ×2 (15:32→19:51)
[2023-07-09] VITALS (8 sets, daily range): BP systolic 86–103; BP diastolic 50–61; PULSE 86–95; RESP 12–20; TEMP 36.4–37.3; O2SAT 93–96; BMI 24.6
[2023-07-09 06:16] LABS: MANUAL DIFF FLAG NO
[2023-07-09 06:41] LABS: Alanine Aminotransferase 10 U/L (0-40); Albumin Level 2.7 g/dL (3.5-5.0); Alkaline Phosphatase 67 U/L (39-117); Anion Gap 12 (12-20); Aspartate Amino Transferase 42 U/L (5-37); Bilirubin Total 2.9 mg/dL (0.0-1.0); Blood Urea Nitrogen 15 mg/dL (9-16); Calcium 8.9 mg/dL (8.4-10.2); Carbon Dioxide 19 mmol/L (22-29); Chloride 110 mmol/L (96-108); Creatinine Clr Calc Pharmacy 94.5; Estimated Glomerular Filt Rate > 60; Glucose Fasting 86 mg/dL (60-99); Potassium 5.4 mmol/L (3.3-5.1); Sodium 136 mmol/L (135-145)
[2023-07-09 07:11] LABS: INTERNATIONAL NORM RATIO 2.6 (0.9-1.1); Prothrombin Time 31.2 SEC (11.1-13.3)
[2023-07-09 07:13] LABS: Basophils Absolute Auto 0.1 X10*3/uL (0.0-0.2); Eosinophils Absolute Auto 0.3 X10*3/uL (0.0-0.4); Eosinophils Percent Auto 2.8 % (0-4); Hematocrit 28.1 % (42.0-52.0); Hemoglobin 9.4 g/dl (14.0-18.0); Imm Gran Abs Auto 0.07 X10*3/uL (0.00-0.03); Imm Gran Pct Auto 0.8 % (0.0-0.4); Lymphocytes Absolute Auto 1.3 X10*3/uL (1.2-4.9); Lymphocytes Percent Auto 14.6 % (20-40); Mean Corpuscular HGB Conc 33.5 g/dl (31.0-36.0); Mean Corpuscular Hemoglobin 34.2 pg (27.0-33.0); Mean Corpuscular Volume 102.2 fL (80.0-98.0); Mean Platelet Volume 12.8 fL (9.4-12.4); Monocytes Absolute Auto 0.9 X10*3/uL (0.1-1.2); Monocytes Percent Auto 9.5 % (2-11); Neutrophils Absolute Auto 6.5 x10*3/uL (2.0-8.3); Neutrophils Percent Auto 71.3 % (45-73); Red Blood Count 2.75 X10*6/uL (4.60-5.80); Red Cell Distribution Width 20.4 % (11.0-16.0); White Blood Count 9.1 X10*3/uL (4.8-10.8)
[2023-07-09 07:17] LABS: Platelet Count 94 X10*3/uL (160-400)
[2023-07-09] MEDS: Folic Acid 1 MG TABLET PO (09:52)
[2023-07-09] MEDS: Thiamine HCL 100 MG TABLET PO (09:52)
[2023-07-09] MEDS: Phytonadione (Vit K1) Oral 10 MG/ML AMPUL PO (09:52)
[2023-07-09] MEDS: Spironolactone 25 MG TABLET PO ×2 (09:53→17:45)
[2023-07-09] MEDS: Furosemide 40 MG TABLET PO (09:53)
[2023-07-09] MEDS: 0.9 % Sodium Chloride Flush 3 ML SYRINGE IVFLUSH ×2 (09:53→17:45)
--- NOTE | 2023-07-09 12:51 | HO.PM.IMPN ---
Subjective Subjective Date of Service: 07/09/23 Interval History: Continues to improve. As of this morning willing to go to Medical rehab Review of Systems Denies chest pain Denies shortness of breath Denies nausea vomiting diarrhea Denies fever chills Physical Exam Vital Signs: Vital Signs: Last Vital Signs Temp 97.5 F 07/09/23 11:07 Pulse 91 07/09/23 11:07 Resp 12 07/09/23 11:07 BP 98/61 07/09/23 11:07 Pulse Ox 96 07/09/23 11:07 O2 Del Method Nasal Cannula 07/09/23 11:07 O2 Flow Rate 2 07/09/23 11:07 BMI result Body Mass Index 24.6 Const: Other: Awake alert oriented x3 no acute distress Resp: Other: Clear to auscultation bilaterally no rales rhonchi or wheezes Cardio: Other: No S4; positive S1-S2; no S3 murmurs rubs or gallops GI: Other: Soft positive bowel sounds. No appreciable fluid wave Extrem: Other: No edema bilaterally Objective Data Active Medications Acetaminophen (Acetaminophen 325 Mg Tablet) 650 mg PO Q6H PRN PRN Reason: Pain, Mild (Pain Scale 1-3) Last Admin: 07/08/23 00:33 Dose: 650 mg Documented By: WHELAN Benzonatate (Benzonatate 100 Mg Capsule) 200 mg PO TID PRN PRN Reason: Cough Last Admin: 07/02/23 15:01 Dose: 200 mg Documented By: CAMILA-RIVCHENTE Folic Acid (Folic Acid 1 Mg Tablet) 1 mg PO DAILY [facility] Last Admin: 07/09/23 09:52 Dose: 1 mg Documented By: WENDY Furosemide (Furosemide 40 Mg Tablet) 40 mg PO DAILY [facility]; Protocol Last Admin: 07/09/23 09:53 Dose: 40 mg Documented By: WENDY Ondansetron HCl (Ondansetron Hcl 4 Mg/2 Ml Vial) 4 mg IVPUSH Q8H PRN PRN Reason: Nausea and Vomiting Last Admin: 07/02/23 04:48 Dose: 4 mg Documented By: JUAREZ Pharmacy Consult (Consult Rx Etoh Phenob Im/Po) 1 each MISCELLANE ONCE PRN; Protocol PRN Reason: Consult order Sodium Chloride (0.9 % Sodium Chloride Flush 3 Ml Syringe) 3 ml IVFLUSH QSHIFT [facility] Last Admin: 07/09/23 09:53 Dose: 3 ml Documented By: WENDY Spironolactone (Spironolactone 25 Mg Tablet) 25 mg PO BID@0900,1800 [facility]; Protocol Last Admin: 07/09/23 09:53 Dose: 25 mg Documented By: WENDY Thiamine HCl (Thiamine Hcl 100 Mg Tablet) 100 mg PO DAILY [facility] Last Admin: 07/09/23 09:52 Dose: 100 mg Documented By: WENDY Labs 07/09/23 06:06 07/09/23 06:06 Labs: Laboratory Results - last 24 hr 07/09/23 07/09/23 07/09/23 06:06 06:06 06:06 MCV 102.2 H MCH 34.2 H MCHC 33.5 RDW 20.4 H Plt Count 94 L MPV 12.8 H Immature Gran % (Auto) 0.8 H Neut % (Auto) 71.3 Lymph % (Auto) 14.6 L [place] % (Auto) 9.5 Eos % (Auto) 2.8 Baso % (Auto) 1.0 Lymph # (Auto) 1.3 [place] # (Auto) 0.9 Eos # (Auto) 0.3 Baso # (Auto) 0.1 Abs Immat Gran (auto) 0.07 H Absolute Neuts (auto) 6.5 Absolute Nucleated RBC 0.000 Nucleated RBC % (auto) 0.0 PT 31.2 H INR 2.6 H Anion Gap 12 Estim Creat Clear Calc 94.5 Estimated GFR > 60 Fasting Glucose 86 Calcium 8.9 Total Bilirubin 2.9 H AST 42 H ALT 10 Alkaline Phosphatase 67 Total Protein 7.0 Albumin 2.7 L Microbiology Microbiology Results: Microbiology 07/03/23 10:55 Gram Stain - Final Ascites Fluid Routine Culture - Final No growth after 2 days Anaerobic Culture - Final NO GROWTH AFTER 5 DAYS Assessment and Plan (1) Cirrhosis: Status: Acute (2) Thrombocytopenia: Status: Acute (3) Acute on chronic anemia: Status: Acute Plan This is a 53M PMHx alcoholic dependence with cirrhosis presented with sob, cough, fevers 1.Cirrhosis/ascites/ Thrombocytopenia -synthetic function poor. -INR remains elevated despite daily IV vitamin K. will give additional dose vitamin K IV today and schedule vitamin K orally b.i.d. -follow-up coags daily -follow renals/divalents 2.Severe sepsis(resolved)/pneumonia -as per ID... All antibiotics DC 8 3.Acute CHF exacerbation - resolved -follow clinically 4.Chronic anemia - likely secondary to liver disease - excellent response to transfusion.. Hemoglobin stable - follow CBC Lovenox full code Will require ongoing hospitalization pending safe placement; will discuss with family as patient refusing rehab. Will continue to replete vitamin K as tolerated Time Spent With Patient Time: Total time managing care of this patient today ____ minutes. Quality Stroke Does the patient have a stroke diagnosis?: No VTE Prior VTE?: No VTE Risk Level:: Medical - moderate - high VTE Device Contraindication: N/A - Device Ordered VTE Drug Contraindication: Treatment Not Indicated
[2023-07-10 03:25] VITALS: BP 103/55; PULSE 93; RESP 20; TEMP 37; O2SAT 94
[2023-07-10 06:00] VITALS: BMI 24.7
[2023-07-10 06:07] LABS: MANUAL DIFF FLAG NO
[2023-07-10 06:09] LABS: Basophils Absolute Auto 0.1 X10*3/uL (0.0-0.2); Eosinophils Absolute Auto 0.3 X10*3/uL (0.0-0.4); Eosinophils Percent Auto 3.2 % (0-4); Hematocrit 26.3 % (42.0-52.0); Hemoglobin 8.9 g/dl (14.0-18.0); Imm Gran Abs Auto 0.07 X10*3/uL (0.00-0.03); Imm Gran Pct Auto 0.8 % (0.0-0.4); Lymphocytes Absolute Auto 1.2 X10*3/uL (1.2-4.9); Lymphocytes Percent Auto 13.4 % (20-40); Mean Corpuscular HGB Conc 33.8 g/dl (31.0-36.0); Mean Corpuscular Hemoglobin 34.6 pg (27.0-33.0); Mean Corpuscular Volume 102.3 fL (80.0-98.0); Mean Platelet Volume 12.2 fL (9.4-12.4); Monocytes Absolute Auto 0.8 X10*3/uL (0.1-1.2); Monocytes Percent Auto 9.6 % (2-11); Neutrophils Absolute Auto 6.2 x10*3/uL (2.0-8.3); Red Blood Count 2.57 X10*6/uL (4.60-5.80); White Blood Count 8.6 X10*3/uL (4.8-10.8)
[2023-07-10 06:10] LABS: Platelet Count 92 X10*3/uL (160-400)
[2023-07-10 06:16] LABS: INTERNATIONAL NORM RATIO 2.4 (0.9-1.1); Prothrombin Time 28.7 SEC (11.1-13.3)
[2023-07-10 06:25] LABS: Alanine Aminotransferase 11 U/L (0-40); Albumin Level 2.7 g/dL (3.5-5.0); Alkaline Phosphatase 80 U/L (39-117); Anion Gap 13 (12-20); Aspartate Amino Transferase 40 U/L (5-37); Bilirubin Total 2.3 mg/dL (0.0-1.0); Blood Urea Nitrogen 13 mg/dL (9-16); Carbon Dioxide 20 mmol/L (22-29); Chloride 109 mmol/L (96-108); Creatinine Clr Calc Pharmacy 94.5; Estimated Glomerular Filt Rate > 60; Glucose Fasting 91 mg/dL (60-99); Potassium 4.5 mmol/L (3.3-5.1); Sodium 137 mmol/L (135-145); Total Protein 7.2 g/dL (6.5-8.0)
[2023-07-10 07:31] VITALS: BP 110/72; PULSE 89; RESP 18; TEMP 36.3; O2SAT 96
[2023-07-10] MEDS: Thiamine HCL 100 MG TABLET PO (09:03)
[2023-07-10] MEDS: Furosemide 40 MG TABLET PO (09:03)
[2023-07-10] MEDS: Spironolactone 25 MG TABLET PO ×2 (09:03→17:59)
[2023-07-10] MEDS: 0.9 % Sodium Chloride Flush 3 ML SYRINGE IVFLUSH ×2 (09:03→18:02)
[2023-07-10] MEDS: Folic Acid 1 MG TABLET PO (09:03)
[2023-07-10 11:35] VITALS: BP 99/61; PULSE 93; RESP 20; TEMP 37.2; O2SAT 94
[2023-07-10 14:14] VITALS: PULSE 105; O2SAT 90
[2023-07-10 15:09] VITALS: BP 101/58; PULSE 90; RESP 17; TEMP 36.9; O2SAT 97
--- NOTE | 2023-07-10 16:23 | MHC.CM.PN ---
EMR REVIEWED, PT MEDICALLY CLEARED AND AGREEABLE TO STR HOWEVER DECLINES TO GO [facility], [facility] DOES NOT HAVE A MALE BED TODAY HOWEVER WILL FOLLOW-UP W/CM IN AM, CM WILL CONT TO FOLLOW D/C NEEDS.
--- NOTE | 2023-07-10 17:11 | P.PNIM_ITS ---
Subjective Subjective Date of Service: 07/10/23 Interval History: offers no acute complaints tolerating diet, no nausea no vomiting no abdominal pain, no headache no dizziness no fevers no chills no other acute issues overnight is agreeable to go to rehab facility but refused to go to [place] for rehab. Review of Systems all other system reviewed and negative. Physical Exam Vital Signs: Vital Signs: Last Vital Signs Temp 98.4 F 07/10/23 15:09 Pulse 90 07/10/23 15:09 Resp 17 07/10/23 15:09 BP 101/58 L 07/10/23 15:09 Pulse Ox 97 07/10/23 15:09 O2 Del Method Nasal Cannula 07/10/23 15:09 O2 Flow Rate 2 07/10/23 15:09 BMI result Body Mass Index 24.7 Const: Other: General? awake alert, resting comfortably, in no acute distress.? Neck? supple no JVD. CVS? regular rate rhythm, Respiratory lungs clear to auscultation, no respiratory distress, no wheeze, no rhonchi. Gastrointestinal abdomen soft,non tender, bowel sounds audible, no guarding , no rigidity. Extremities?no edema Neuro nonfocal , no tremors Skin no rash psych appropriate affect Objective Data Active Medications Acetaminophen (Acetaminophen 325 Mg Tablet) 650 mg PO Q6H PRN PRN Reason: Pain, Mild (Pain Scale 1-3) Last Admin: 07/08/23 00:33 Dose: 650 mg Documented By: WHELAN Benzonatate (Benzonatate 100 Mg Capsule) 200 mg PO TID PRN PRN Reason: Cough Last Admin: 07/02/23 15:01 Dose: 200 mg Documented By: JOANNE Folic Acid (Folic Acid 1 Mg Tablet) 1 mg PO DAILY [facility] Last Admin: 07/10/23 09:03 Dose: 1 mg Documented By: LIZABETH Furosemide (Furosemide 40 Mg Tablet) 40 mg PO DAILY [facility]; Protocol Last Admin: 07/10/23 09:03 Dose: 40 mg Documented By: LIZABETH Ondansetron HCl (Ondansetron Hcl 4 Mg/2 Ml Vial) 4 mg IVPUSH Q8H PRN PRN Reason: Nausea and Vomiting Last Admin: 07/02/23 04:48 Dose: 4 mg Documented By: JUAREZ Pharmacy Consult (Consult Rx Etoh Phenob Im/Po) 1 each MISCELLANE ONCE PRN; Protocol PRN Reason: Consult order Sodium Chloride (0.9 % Sodium Chloride Flush 3 Ml Syringe) 3 ml IVFLUSH QSHIFT [facility] Last Admin: 07/10/23 09:03 Dose: 3 ml Documented By: LIZABETH Spironolactone (Spironolactone 25 Mg Tablet) 25 mg PO BID@0900,1800 [facility]; Protocol Last Admin: 07/10/23 09:03 Dose: 25 mg Documented By: LIZABETH Thiamine HCl (Thiamine Hcl 100 Mg Tablet) 100 mg PO DAILY [facility] Last Admin: 07/10/23 09:03 Dose: 100 mg Documented By: LIZABETH Labs 07/10/23 05:57 07/10/23 05:57 Labs: Laboratory Results - last 24 hr 07/10/23 07/10/23 07/10/23 05:57 05:57 05:57 MCV 102.3 H MCH 34.6 H MCHC 33.8 RDW 20.0 H Plt Count 92 L MPV 12.2 Immature Gran % (Auto) 0.8 H Neut % (Auto) 72.0 Lymph % (Auto) 13.4 L [place] % (Auto) 9.6 Eos % (Auto) 3.2 Baso % (Auto) 1.0 Lymph # (Auto) 1.2 [place] # (Auto) 0.8 Eos # (Auto) 0.3 Baso # (Auto) 0.1 Abs Immat Gran (auto) 0.07 H Absolute Neuts (auto) 6.2 Absolute Nucleated RBC 0.000 Nucleated RBC % (auto) 0.0 PT 28.7 H INR 2.4 H Anion Gap 13 Estim Creat Clear Calc 94.5 Estimated GFR > 60 Fasting Glucose 91 Calcium 9.0 Total Bilirubin 2.3 H AST 40 H ALT 11 Alkaline Phosphatase 80 Total Protein 7.2 Albumin 2.7 L Assessment and Plan (1) Cirrhosis: Status: Acute (2) Thrombocytopenia: Status: Acute (3) Acute on chronic anemia: Status: Acute Plan This is a 53M PMHx alcoholic dependence with cirrhosis presented with sob, cough, fevers 1 alcoholic.Cirrhosis/ascites/ Thrombocytopenia - stable LFTs, total bili improved to 2.3,synthetic function poor with albumin 2.7 and elevated INR. -INR remains elevated 2.4, despite daily IV and po vitamin K now discontinued -follow-up coags prn 2.Severe sepsis(resolved)/pneumonia -as per ID... All antibiotics DC 8 3.Acute CHF exacerbation - resolved continue Lasix and spironolactone -follow clinically 4.Chronic anemia - likely secondary to liver disease, hematocrit stable post transfusion - follow CBC full code recommend ambulation Q shift Will require ongoing hospitalization pending safe placement; Time Spent With Patient Time: Total time managing care of this patient today ____ minutes. Quality Stroke Does the patient have a stroke diagnosis?: No VTE Prior VTE?: No VTE Risk Level:: Medical - moderate - high VTE Device Contraindication: N/A - Device Ordered VTE Drug Contraindication: Treatment Not Indicated
[2023-07-10 20:00] VITALS: BP 92/56; PULSE 85; RESP 14; TEMP 36.1; O2SAT 96
[2023-07-11] VITALS (7 sets, daily range): BP systolic 93–111; BP diastolic 53–66; PULSE 76–98; RESP 16–20; TEMP 36.8–37.5; O2SAT 89–95; BMI 24.8
[2023-07-11 06:01] LABS: MANUAL DIFF FLAG NO
[2023-07-11 06:05] LABS: Basophils Absolute Auto 0.1 X10*3/uL (0.0-0.2); Basophils Percent Auto 0.9 % (0-2); Eosinophils Absolute Auto 0.4 X10*3/uL (0.0-0.4); Hematocrit 27.4 % (42.0-52.0); Hemoglobin 9.2 g/dl (14.0-18.0); Imm Gran Abs Auto 0.06 X10*3/uL (0.00-0.03); Imm Gran Pct Auto 0.7 % (0.0-0.4); Lymphocytes Absolute Auto 1.3 X10*3/uL (1.2-4.9); Lymphocytes Percent Auto 14.5 % (20-40); Mean Corpuscular HGB Conc 33.6 g/dl (31.0-36.0); Mean Corpuscular Hemoglobin 34.2 pg (27.0-33.0); Mean Corpuscular Volume 101.9 fL (80.0-98.0); Mean Platelet Volume 12.4 fL (9.4-12.4); Monocytes Absolute Auto 0.9 X10*3/uL (0.1-1.2); Monocytes Percent Auto 10.1 % (2-11); Neutrophils Absolute Auto 6.1 x10*3/uL (2.0-8.3); Neutrophils Percent Auto 69.8 % (45-73); Red Blood Count 2.69 X10*6/uL (4.60-5.80); Red Cell Distribution Width 19.5 % (11.0-16.0); White Blood Count 8.8 X10*3/uL (4.8-10.8)
[2023-07-11 06:10] LABS: Platelet Count 96 X10*3/uL (160-400)
[2023-07-11 06:19] LABS: Alanine Aminotransferase 10 U/L (0-40); Albumin Level 2.6 g/dL (3.5-5.0); Alkaline Phosphatase 72 U/L (39-117); Anion Gap 11 (12-20); Aspartate Amino Transferase 40 U/L (5-37); Bilirubin Total 2.9 mg/dL (0.0-1.0); Blood Urea Nitrogen 12 mg/dL (9-16); Calcium 8.8 mg/dL (8.4-10.2); Carbon Dioxide 20 mmol/L (22-29); Chloride 108 mmol/L (96-108); Creatinine Clr Calc Pharmacy 98.8; Estimated Glomerular Filt Rate > 60; Glucose Fasting 91 mg/dL (60-99); Potassium 4.4 mmol/L (3.3-5.1); Sodium 135 mmol/L (135-145)
[2023-07-11 06:25] LABS: INTERNATIONAL NORM RATIO 2.4 (0.9-1.1); Prothrombin Time 29.3 SEC (11.1-13.3)
[2023-07-11] MEDS: Furosemide 40 MG TABLET PO (10:26)
[2023-07-11] MEDS: Thiamine HCL 100 MG TABLET PO (10:26)
[2023-07-11] MEDS: Spironolactone 25 MG TABLET PO (10:26)
[2023-07-11] MEDS: Folic Acid 1 MG TABLET PO (10:26)
[2023-07-11] MEDS: 0.9 % Sodium Chloride Flush 3 ML SYRINGE IVFLUSH ×3 (10:27→21:21)
--- NOTE | 2023-07-11 15:15 | MHC.CM.PN ---
CM MET WITH PT AND DISCUSSED GOING TO [facility]. BROTHER AND HCP JACQUI ENDORSES THIS AND STATES HE CAN OFFER ASSIST AFTER REHAB BUT ONLY IF PT AGREES TO GO. PT IS NOW AGREEABLE TO THIS. [facility] CAN OFFER A BED 07/12 AND [facility] TRANSPORT HAS BEEN PRE-BOOKED FOR 11 AM VIA [facility]. IS AWARE.
--- NOTE | 2023-07-11 15:32 | P.PNIM_ITS ---
Subjective Subjective Date of Service: 07/11/23 Interval History: Resting comfortably in bed offers no acute complaints agree able to go to rehab, seen by Physical therapy patient ambulated fine with and without of walker, patient denies lightheadedness dizziness, no chest pain, no palpitation, no acute events overnight. Review of Systems All other system reviewed and negative Physical Exam Vital Signs: Vital Signs: Last Vital Signs Temp 98.3 F 07/11/23 11:22 Pulse 82 07/11/23 11:22 Resp 20 07/11/23 11:22 BP 104/66 07/11/23 11:22 Pulse Ox 95 07/11/23 11:22 O2 Del Method Nasal Cannula 07/11/23 11:22 O2 Flow Rate 2 07/11/23 11:22 BMI result Body Mass Index 24.8 Const: Other: General? awake alert, resting comfortably, in no acute distress.? Neck? supple no JVD. CVS? regular rate rhythm, Respiratory lungs clear to auscultation, no respiratory distress, no wheeze, no rhonchi. Gastrointestinal abdomen soft,non tender, bowel sounds audible, no guarding , no rigidity. Extremities?no edema Neuro nonfocal , no tremors Skin no rash psych appropriate affect Objective Data Active Medications Acetaminophen (Acetaminophen 325 Mg Tablet) 650 mg PO Q6H PRN PRN Reason: Pain, Mild (Pain Scale 1-3) Last Admin: 07/08/23 00:33 Dose: 650 mg Documented By: SHANKAR Benzonatate (Benzonatate 100 Mg Capsule) 200 mg PO TID PRN PRN Reason: Cough Last Admin: 07/02/23 15:01 Dose: 200 mg Documented By: JOANNE Folic Acid (Folic Acid 1 Mg Tablet) 1 mg PO DAILY [facility] Last Admin: 07/11/23 10:26 Dose: 1 mg Documented By: JEFF Furosemide (Furosemide 40 Mg Tablet) 40 mg PO DAILY [facility]; Protocol Last Admin: 07/11/23 10:26 Dose: 40 mg Documented By: JEFF Ondansetron HCl (Ondansetron Hcl 4 Mg/2 Ml Vial) 4 mg IVPUSH Q8H PRN PRN Reason: Nausea and Vomiting Last Admin: 07/02/23 04:48 Dose: 4 mg Documented By: JUAREZ Pharmacy Consult (Consult Rx Etoh Phenob Im/Po) 1 each MISCELLANE ONCE PRN; Protocol PRN Reason: Consult order Sodium Chloride (0.9 % Sodium Chloride Flush 3 Ml Syringe) 3 ml IVFLUSH QSHIFT [facility] Last Admin: 07/11/23 10:27 Dose: 3 ml Documented By: JEFF Spironolactone (Spironolactone 25 Mg Tablet) 25 mg PO BID@0900,1800 [facility]; Juan col Last Admin: 07/11/23 10:26 Dose: 25 mg Documented By: JEFF Thiamine HCl (Thiamine Hcl 100 Mg Tablet) 100 mg PO DAILY [facility] Last Admin: 07/11/23 10:26 Dose: 100 mg Documented By: JEFF Labs 07/11/23 05:42 07/11/23 05:42 Labs: Laboratory Results - last 24 hr 07/11/23 07/11/23 07/11/23 05:42 05:42 05:42 MCV 101.9 H MCH 34.2 H MCHC 33.6 RDW 19.5 H Plt Count 96 L MPV 12.4 Immature Gran % (Auto) 0.7 H Neut % (Auto) 69.8 Lymph % (Auto) 14.5 L [place] % (Auto) 10.1 Eos % (Auto) 4.0 Baso % (Auto) 0.9 Lymph # (Auto) 1.3 [place] # (Auto) 0.9 Eos # (Auto) 0.4 Baso # (Auto) 0.1 Abs Immat Gran (auto) 0.06 H Absolute Neuts (auto) 6.1 Absolute Nucleated RBC 0.000 Nucleated RBC % (auto) 0.0 PT 29.3 H INR 2.4 H Anion Gap 11 L Estim Creat Clear Calc 98.8 Estimated GFR > 60 Fasting Glucose 91 Calcium 8.8 Total Bilirubin 2.9 H AST 40 H ALT 10 Alkaline Phosphatase 72 Total Protein 7.0 Albumin 2.6 L Assessment and Plan (1) Cirrhosis: Status: Acute (2) Thrombocytopenia: Status: Acute (3) Acute on chronic anemia: Status: Acute Plan This is a 53M PMHx alcoholic dependence with cirrhosis presented with sob, cough, fevers 1 alcoholic.Cirrhosis/ascites/ Thrombocytopenia -no worsening abdominal distension no abdominal pain tolerating diet no nausea, no vomiting, no diarrhea , recommend to abstain from alcohol - stable LFTs, total bili fluctuating 2.9 today,synthetic function poor with albumin 2.7 and elevated INR. -INR remains elevated 2.4, despite daily IV and po vitamin K now discontinued -follow liver panel/ INR closely 2.Severe sepsis(resolved)/pneumonia finished course of antibiotics 3. Generalized edema initially felt to have acute CHF however echo showed EF 65- 70% normal filling pattern, normal valves - Generalized edema due to low albumin and cirrhosis - on Lasix and spironolactone noted to have soft blood pressures will reduce dose of diuretics - obtain home O2 eval patient does not qualify for oxygen 4.Chronic anemia - likely secondary to liver disease, hematocrit stable post transfusion - follow CBC full code recommend ambulation Q shift Will require ongoing hospitalization pending safe placement, patient agreed for rehab at [place] will discharge patient home tomorrow morning; Time Spent With Patient Time: Total time managing care of this patient today ____ minutes. Quality Stroke Does the patient have a stroke diagnosis?: No VTE Prior VTE?: No VTE Risk Level:: Medical - moderate - high VTE Device Contraindication: N/A - Device Ordered VTE Drug Contraindication: Treatment Not Indicated
[2023-07-11] MEDS: Acetaminophen 325 MG TABLET 650 MG PO (21:19)
[2023-07-12] VITALS: BP 115/56; PULSE 90; RESP 16; TEMP 36.8; O2SAT 91
[2023-07-12 04:00] VITALS: BP 100/56; PULSE 75; RESP 15; TEMP 36.6; O2SAT 97
[2023-07-12 05:51] VITALS: BMI 25.0
[2023-07-12 07:36] VITALS: BP 116/76; PULSE 98; RESP 18; TEMP 36.3; O2SAT 99
[2023-07-12] MEDS: Spironolactone 25 MG TABLET PO (08:50)
[2023-07-12] MEDS: Furosemide 20 MG TABLET PO (08:50)
[2023-07-12] MEDS: 0.9 % Sodium Chloride Flush 3 ML SYRINGE IVFLUSH (08:50)
[2023-07-12] MEDS: Thiamine HCL 100 MG TABLET PO (08:50)
[2023-07-12] MEDS: Folic Acid 1 MG TABLET PO (08:50)
[2023-07-12] MEDS: Magnesium Hydrox/Alum Hydrox 30 ML ORAL.SUSP PO (09:45)
--- NOTE | 2023-07-12 10:14 | P.DS_ITS ---
DS: Providers Provider Date of Service: 07/12/23 Date of admission: 06/24/23 23:59 Primary care physician: Unknown Physician Consults: 06/29/23 10:04 Consult to Infectious Diseases Routine Consulting Provider: [facility] Infectious Disease Reason for consultation: persistent fevers DS: Diagnosis Discharge Diagnosis (1) Cirrhosis: Status: Acute (2) Thrombocytopenia: Status: Acute (3) Acute on chronic anemia: Status: Acute DS: Summary Hospital Course Hospital Course: Date of Service: 06/24/23 Chief Complaint: leg swelling, etoh 53-year-old male past medical history of alcoholic liver cirrhosis, anemia, CHF, alcohol abuse, comes into the hospital after a bystander stops EMS to pick him up.? Patient is homeless, reports that he has been having swelling in his legs for the past several weeks.? Reports having some shortness of breath, cough, sputum production, denies any chest pain, no palpitations, no abdominal pain nausea or vomiting, no diarrhea constipation, no urinary symptoms. On arrival to the ED patient was found to have a fever of 101.1, elevated heart rate of 105, otherwise stable satting 94% on room air Labs are significant for WBC count of 9.4, hemoglobin of 8.4 which is chronic at baseline, platelets 98, sodium 132, lactic acid of 2.4 improved after giving fluids to 2, albumin of 2.3, BNP of 240, UA positive for nitrites leukocyte Estrace and WBC Chest x-ray shows infiltrate bilaterally concerning for atypical pneumonia Patient started on antibiotics and will be admitted for further management. Hospital course: 53M PMHx alcoholic dependence with cirrhosis presented with sob, cough, fevers and diagnosed to have severe sepsis due to pneumonia, treated with IV antibiotics , O2 support with good response, all features of sepsis resolved, patient also noted to have generalized edema initially felt to have acute CHF however echo showed EF 65-70%, normal filling pattern and normal valves, so likely fluid overload related to anemia,low albumin and cirrhosis ,patient treated with iv diuretics and subsequently transition to by mouth Lasix and spironolactone , edema resolved, will continue low dose diuretics upon discharge, patient also required oxygen therefore home O2 eval obtained patient does not qualify for home oxygen recommend to continue incentive spirometry. Patient also has diagnosis of cirrhosis due to alcohol with associated ascites, thrombocytopenia and elevated INR patient has no abdominal distension at present he has stable LFTs with total bili around 2.5 ,low albumin 2.7 and INR of 2.4 patient received IV and by mouth vitamin K with no improvement have strongly recommend to abstain from alcohol. Chronic anemia- likely secondary to liver disease, required 2 units of blood transfusion hematocrit stable post transfusion. Time Spent with Patient Time attestation: Total time managing care of this patient today ____ minutes. Discharge coordination time: Greater than 30 minutes Quality: Safe Use of Opioids Does Pt have an Active Cancer Diagnosis on the Problem List?: No Quality: Stroke Does the patient have a stroke diagnosis?: No Physical Exam Vital Signs: Vital Signs: Last Vital Signs Temp 97.3 F 07/12/23 07:36 Pulse 98 07/12/23 07:36 Resp 18 07/12/23 07:36 BP 116/76 07/12/23 07:36 Pulse Ox 99 07/12/23 07:36 O2 Del Method Nasal Cannula 07/12/23 07:36 O2 Flow Rate 2 07/12/23 07:36 BMI result Body Mass Index 25.0 Const: Other: General? awake alert, resting comfortably, in no acute distress.? Neck? supple no JVD. CVS? regular rate rhythm, Respiratory lungs clear to auscultation, no respiratory distress, no wheeze, no rhonchi. Gastrointestinal abdomen soft,non tender, bowel sounds audible, no guarding , no rigidity. Extremities?no edema Neuro nonfocal , no tremors Skin no rash psych appropriate affect DS: Data Data Completed and Pending Completed studies during hospitalization [Text1]: Procedures Detoxification Services for Substance Abuse Treatment (06/08/23) Transfusion of Nonautologous Red Blood Cells into Peripheral Vein, Percutaneous Approach (06/08/23) Discharge Plan Discharge Anticipated Discharge Date/Time: 07/12/23 07:45 Patient Disposition: Xfer SNF Discharge Diagnosis: Severe sepsis due to pneumonia Generalized edema Chronic anemia Cirrhosis of liver Thrombocytopenia Referrals: Physician,Unknown J [Primary Care Provider] - 1 Week Discharge Medications: New spironolactone 25 mg Tablet 25 mg PO DAILY Qty: 30 0RF Protocol: Hold for SBP< HOLD for SBP < : 90 furosemide 20 mg Tablet 20 mg PO DAILY Qty: 30 0RF Protocol: Hold for SBP< HOLD for SBP < : 90 alum-mag hydroxide-simeth [Maalox Advanced] 200-200-20 mg/5 mL suspension 10 ml PO QID PRN (Reason: dyspepsia) Qty: 355 0RF Rx Instructions: administer between meals and at bedtime Continued acetaminophen 325 mg Tablet 650 mg PO Q6H PRN (Reason: Headache) Discharge Orders: Discharge Order (Routine); Ordered 07/12/23 Ordered By: Mariel Rice Diet: Advance to usual diet Activity on Discharge: As tolerated Stand Alone Forms: Patient Portal Discharge page Care Plan Goals: Strongly recommend to completely abstain from alcohol Continue physical therapy Take all medications as prescribed Health Concerns: Anemia Alcohol use disorder/cirrhosis Plan of Treatment: Outpatient follow-up with primary care physician Assessment: as above
--- NOTE | 2023-07-12 10:33 | MHC.CM.PN ---
Pt is medically cleared for D/C to STR at [facility]. Transport via [facility] at 11am today.
== END 2023-07-12 11:30 | disposition skilled nursing facility (03) | DRG 720 ==
LOC: HO.ED 22:28 → HO.EDOVER 06-25 00:04 → HO.IMC 06-25 13:08
PROVIDERS: Hospitalist; Internal Medicine; Physician Assistant; Radiology Diagnostic Radiology; Admitting Provider Internal Medicine; Emergency Provider Emergency Medicine; Visit Provider Hospitalist
PROC: 0W9G3ZZ Drainage of Peritoneal Cavity, Percutaneous Approach (ICD-10-PCS; principal; 2023-07-03 10:30)
DX: A41.9 Sepsis, unspecified organism (principal); J18.9 Pneumonia, unspecified organism; I42.6 Alcoholic cardiomyopathy; D68.4 Acquired coagulation factor deficiency; K70.31 Alcoholic cirrhosis of liver with ascites; D63.8 Anemia in other chronic diseases classified elsewhere; D69.59 Other secondary thrombocytopenia; F10.20 Alcohol dependence, uncomplicated; I50.32 Chronic diastolic (congestive) heart failure; E86.0 Dehydration; N39.0 Urinary tract infection, site not specified; R65.20 Severe sepsis without septic shock; Z20.822 Contact with and (suspected) exposure to COVID-19; Y90.4 Blood alcohol level of 80-99 mg/100 ml; Z59.02 Unsheltered homelessness; Z87.891 Personal history of nicotine dependence
CPT/HCPCS: 0241U; 36415; 49083; 71045; 71250; 76705; 80048; 80053; 80076; 80202; 80307; 81001; 82565; 82607; 82746; 83605; 83880; 84157; 84484; 85025; 85027; 85610; 86850; 86900; 86901; 86923; 87040; 87070; 87073; 87086; 87147; 87205; 87389; 87633; 87798; 87801; 89051; 93005; 93306; 97116; 97162; 99285; J0456; J0696; J1650; J1940; J2405; J2543; J2560; J3371; J3430; P9016; P9047; Q9957

== ENCOUNTER → 2023-06-24 18:48 | Outpatient (BNV) | payer MEDICAID, SELFPAY | PROVIDERS: Admitting Provider Internal Medicine; Emergency Provider Emergency Medicine; Visit Provider Internal Medicine Cardiovascular Disease | DX: R00.0 Tachycardia, unspecified (principal) | CPT/HCPCS: 93010 ==

== ENCOUNTER 2023-06-24 23:59 | Outpatient (BNV) | payer MEDICAID, SELFPAY | END 2023-07-03 10:42 | PROVIDERS: Admitting Provider Internal Medicine; Emergency Provider Emergency Medicine; Visit Provider Radiology Diagnostic Radiology | DX: R18.8 Other ascites (principal) | CPT/HCPCS: 49083 ==

== ENCOUNTER 2023-06-24 23:59 | Outpatient (BNV) | payer MEDICAID, SELFPAY | END 2023-06-26 07:00 | PROVIDERS: Admitting Provider Internal Medicine; Emergency Provider Emergency Medicine; Visit Provider Internal Medicine Cardiovascular Disease | DX: I36.1 Nonrheumatic tricuspid (valve) insufficiency (principal); I37.1 Nonrheumatic pulmonary valve insufficiency | CPT/HCPCS: 93306 ==

== ENCOUNTER → 2023-06-24 23:59 | Outpatient (BNV) | payer MEDICAID, SELFPAY | PROVIDERS: Admitting Provider Internal Medicine; Emergency Provider Emergency Medicine; Visit Provider Internal Medicine | DX: K74.60 Unspecified cirrhosis of liver (principal); D69.6 Thrombocytopenia, unspecified; D64.9 Anemia, unspecified | CPT/HCPCS: 99223; 99232; 99233; 99239; 99499 ==

== ENCOUNTER → 2023-06-24 23:59 | Outpatient (BNV) | payer MEDICAID, SELFPAY | PROVIDERS: Admitting Provider Internal Medicine; Emergency Provider Emergency Medicine; Visit Provider Internal Medicine | DX: A41.9 Sepsis, unspecified organism (principal); L03.90 Cellulitis, unspecified | CPT/HCPCS: 99222; 99232 ==

== ENCOUNTER 2023-07-21 17:18 | Emergency (ER) | payer MEDICAID, SELFPAY ==
--- NOTE | ~2023-07-21 | US_ITS ---
EXAMINATION: US ABDOMEN LIMITED CLINICAL INFORMATION: RUQ and liver - pain. COMPARISON: 06/29/2023 TECHNIQUE: Real-time imaging of the right upper quadrant abdominal viscera. FINDINGS: PANCREAS: Normal. LIVER: There is increased hepatic echogenicity with subtle contour nodularity concerning for findings of underlying hepatocellular disease. The liver is normal in size. No focal hepatic lesion. There is no intrahepatic biliary duct dilatation seen. Of note, there is relatively slow flow in the portal venous system. Although hepatofugal flow documented on imaging, there is the possibility that this is artifactual in nature as systolic pulsatility was also observed on the spectral waveform, an atypical finding in the portal venous system. Absence of color flow within a segment of the portal vein is also favored to represent an artifact of the angle of imaging as opposed to thrombus. GALLBLADDER: Gallbladder wall measures approximately 3 mm in diameter. There is a small amount of pericholecystic fluid at the gallbladder. Sludge is present within the gallbladder without appreciable calculi. COMMON BILE DUCT: Normal in caliber measuring 0.4 cm in diameter. RIGHT KIDNEY: Normal. No hydronephrosis. No renal calculi or focal parenchymal lesions. The kidney measures 10.9 cm in maximum dimension. FREE FLUID: Small volume US/US abdomen limited IMPRESSION: 1. Increased hepatic echogenicity with subtle contour nodularity concerning for underlying hepatocellular disease. 2. Small volume ascites. 3. Relatively slow flow in the portal venous system. Although hepatofugal flow is documented on these images and there is focal segment of absent blood flow in the portal vein, these findings may be artifactual in nature. Consider follow-up repeat liver Doppler study if there is concern for portal vein thrombosis.. 4. Gallbladder sludge without evidence of acute cholecystitis. Small volume of pericholecystic fluid, though this is nonspecific in the setting of ascites.
[2023-07-21 17:28] VITALS: BP 103/56; PULSE 96; RESP 16; TEMP 36.8; O2SAT 95; BMI 19.4
[2023-07-21 17:32] VITALS: BP 126/68; PULSE 98; O2SAT 96
[2023-07-21 19:48] VITALS: BP 167/90; PULSE 79; RESP 16; TEMP 36.8; O2SAT 95
--- NOTE | 2023-07-21 22:42 | ED_ITS ---
HPI - Abdominal Pain General Chief Complaint: General Medical Stated Complaint: Abd pain, leg pain Time Seen by Provider: 07/21/23 22:09 Source: patient and old records reviewed Mode of arrival: EMS Limitations: no limitations History of Present Illness HPI narrative: 53 yo male with PMH of alcoholic liver cirrhosis, anemia, CHF, alcohol abuse - recent admit for CHF s/p diuresis but also anemia s/p blood transfusion in June he comes in today stating his stomach is itchy and his legs feel itchy and painful. He denies black or bloody stools. He has no numbness, weakness, no fevers. He feels his abdomen is bigger but his legs are not as swollen. He came today because he feels that he is normally skinny and his stomach is bigger. MD elicited complaint: abdominal pain Pertinent past history: other (cirrhosis) Onset (ago): day(s) (2) Pain Consistency: intermittent Location: diffuse Severity: moderate Quality: aching and fullness Radiation: none Migration to: no migration Exacerbating factors: movement Relieving factors: nothing Context: history of similar episodes Associated symptoms: diarrhea (non-bloody not black) Related Data Home Medications Medication Instructions Recorded Confirmed acetaminophen 325 mg tablet 650 mg PO Q6H PRN Headache 06/08/23 06/25/23 Previous Rx's Medication Instructions Recorded aluminum-mag hydroxide-simethicone 10 ml PO QID PRN dyspepsia #355 mL 07/12/23 200 mg-200 mg-20 mg/5 mL oral susp (Maalox Advanced) furosemide 20 mg tablet 20 mg PO DAILY #30 tabs 07/12/23 spironolactone 25 mg tablet 25 mg PO DAILY #30 tabs 07/12/23 magnesium oxide 400 mg PO DAILY #30 tabs 07/22/23 thiamine HCl (vitamin B1) 100 mg 100 mg PO DAILY #30 tabs 07/22/23 tablet Allergies Allergy/AdvReac Type Severity Reaction Status Date / Time No Known Allergies Allergy Verified 06/24/23 18:44 [No Known Allergies*] Review of Systems Review of Systems Constitutional : No Weight loss, No Fever, No Chills ENT/Mouth : No sore throat, No Rhinorrhea Eyes: No Swelling, No Redness Cardiovascular : No Chest Pain, No SOB, NoEdema Respiratory : No Cough, No Sputum, No Wheezing Gastrointestinal : no Nausea, no Vomiting, positive Diarrhea, positive abdominal Pain, No Hematochezia, No Melena Genitourinary : No Dysuria, No Urinary Frequency, No Hematuria, No Urgency Musculoskeletal : No joint pain, No Myalgias, No Joint Swelling Skin : No Skin Lesions, No rash, pos pruritis Neuro : No Weakness, No Numbness, No Dizziness, No Headache Psych : No Anxiety/Panic, No Depression All other systems reviewed and are negative. [facility] Past Medical History Attestation statement: The following information was validated with the patient. Source: old records reviewed Medical History Cirrhosis Thrombocytopenia Alcoholic liver disease Acute on chronic anemia CHF (congestive heart failure) Anemia Alcohol abuse Surgical History No history of previous surgery Social History Social History Household Members: None Household Members Other:: pt homeless Housing: Other Housing Other:: homeless Do you presently have visiting nurse or other home services: No Alcohol intake: current Alcohol intake frequency: 3 or more drinks per day Alcohol type: beer and hard liquor Patient Tobacco Use Status: Former Tobacco user Quit Date: 12 years ago Tobacco use type: Cigarette Smoked in Last 30 Days: No Second Hand Smoke Exposure: No Use of substances other than those prescribed or required for medical reasons: No Advance Directives: Yes Advance Directives on File: Yes Advance Directives Date on File: 07/13/23 service: No Physical Exam ED Vital Signs: Vital Signs - 24 hr 07/21/23 17:28 07/21/23 19:48 07/21/23 23:15 Temperature 98.3 F 98.2 F 98.0 F Pulse Rate 96 79 59 Respiratory Rate 16 16 16 Blood Pressure 103/56 L 167/90 H 118/59 L Pulse Oximetry 95 95 98 Oxygen Delivery Method Room Air Room Air Room Air BMI result Body Mass Index 19.4 Appearance: Alert. Oriented X3. No acute distress. Eyes: Pupils equal, round and reactive to light. scleral icterus ENT: Pharynx normal. Neck: Normal inspection. Neck supple. CVS: Normal heart rate and rhythm. Pulses normal. Respiratory: No respiratory distress. Breath sounds normal. Abdomen: Soft and non-tender. + ascites noted Skin: Skin warm and dry. Normal skin color. Normal skin turgor. Extremities: No lower extremity edema. No calf ttp Neuro: Oriented X 3. No motor deficit. No sensory deficit. Course Course Course Narrative: BNP lower than recent, small ascites on US Reevaluation(s) Reevaluation #1: ammonia negative Medical Decision Making Medical Decision Making [facility] Narrative: 53 yo male with PMH of alcoholic liver cirrhosis, anemia, CHF, alcohol abuse - recent admit for CHF s/p diuresis but also anemia s/p blood transfusion in June at this time c/o itchy skin which could be due to bile salts I see no rash. He also c/o ascites but has no ttp and no difficulty breathing he has no peripheral edema so no signs of volume overload no need for emergent tap no signs of SBP either no fevers, no abdominal pain. At this time I have obtained basic labs, ammonia, ETOH level, trend LFTs. Differential Diagnosis Differential Diagnoses: The differential diagnosis associated with the presentation includes ascites, ETOH abuse Admission/Observation Consideration of admission/observation: Escalation of care including admission/observation considered does not need admission labs at baseline will start on oral medications and DC home Lab Data [facility] Lab Attestation statement: I reviewed the patient's lab results. labs around baseline, mag repleted orally possible cause of his symptoms LFTS stable doubt portal vein thrombosis 07/21/23 23:13 07/21/23 23:13 Labs: Lab Results 07/21/23 07/22/23 Range/Units 23:13 00:23 WBC 6.1 (4.8-10.8) X10*3/uL RBC 2.38 L (4.60-5.80) X10*6/uL Hgb 8.2 L (14.0-18.0) g/dl Hct 24.3 L (42.0-52.0) % MCV 102.1 H (80.0-98.0) fL MCH 34.5 H (27.0-33.0) pg MCHC 33.7 (31.0-36.0) g/dl RDW 17.7 H (11.0-16.0) % Plt Count 61 L D (160-400) X10*3/uL MPV 11.8 (9.4-12.4) fL Immature Gran % (Auto) 0.3 (0.0-0.4) % Neut % (Auto) 70.6 (45-73) % Lymph % (Auto) 15.8 L (20-40) % [place] % (Auto) 10.4 (2-11) % Eos % (Auto) 2.1 (0-4) % Baso % (Auto) 0.8 (0-2) % Lymph # (Auto) 1.0 L (1.2-4.9) X10*3/uL [place] # (Auto) 0.6 (0.1-1.2) X10*3/uL Eos # (Auto) 0.1 (0.0-0.4) X10*3/uL Baso # (Auto) 0.1 (0.0-0.2) X10*3/uL Abs Immat Gran (auto) 0.02 (0.00-0.03) X10*3/uL Absolute Neuts (auto) 4.3 (2.0-8.3) x10*3/uL Absolute Nucleated RBC 0.000 (0.0-0.012) X10*3/uL Nucleated RBC % (auto) 0.0 (0.0-0.2) /100WBC PT 26.9 H (11.1-13.3) SEC INR 2.2 H (0.9-1.1) Sodium 138 (135-145) mmol/L Potassium 4.2 (3.3-5.1) mmol/L Chloride 113 H (96-108) mmol/L Carbon Dioxide 20 L (22-29) mmol/L Anion Gap 9 L (12-20) BUN 18 H (9-16) mg/dL Creatinine 0.72 (0.5-1.4) mg/dL Estim Creat Clear Calc 90.2 Estimated GFR > 60 Random Glucose 101 (60-115) mg/dL Calcium 8.9 (8.4-10.2) mg/dL Magnesium 1.5 L (1.6-2.6) mg/dL Total Bilirubin 2.0 H (0.0-1.0) mg/dL Direct Bilirubin 1.1 H (0.0-0.5) mg/dL AST 39 H (5-37) U/L ALT 10 (0-40) U/L Alkaline Phosphatase 97 (39-117) U/L Ammonia 54 (13-55) umol/L B-Natriuretic Peptide 361 H (<100) pg/mL Total Protein 7.9 (6.5-8.0) g/dL Albumin 2.6 L (3.5-5.0) g/dL Lipase 74 (8-78) U/L Acetaminophen < 17 (<30) mcg/mL Ethyl Alcohol < 10 mg/dL Independent Interpretation I performed an independent interpretation of an: Ultrasound (doubt PV thrombosis LFTs stable no abdominal pain) Radiology Impression Discussion of test interpretation with radiology: I have reviewed the radiologist's reading. Independent Historian Clinical information obtained from an independent historian. History obtained from or confirmed by: EMS External Record Review External record reviewed: Inpatient record Prescription Management I considered prescription management with: Other (thiamine, magnesium) Social Determinants Patient?s care significantly limited by Social Determinants of Health including: Problems related to primary support group Medications Administered Discontinued Medications Generic Name Dose Route Start Last Admin Trade Name Freq PRN Reason Stop Dose Admin Magnesium Oxide 800 mg 07/21/23 23:48 07/22/23 00:09 Magnesium Oxide 400 Mg Tablet PO 07/21/23 23:49 800 mg ONCE ONE Administration Discharge Plan Discharge Clinical Impression: Hypomagnesemia Abdominal ascites Qualifiers: Ascites type: due to alcoholic cirrhosis Qualified Code(s): K70.31 - Alcoholic cirrhosis of liver with ascites Patient Disposition: Home, Self-Care Instructions: Ascites (ED), Hypomagnesemia (ED) Additional Instructions: take the medications. follow up with your doctor. return for fevers, pain, bleeding, increased swelling or any other concerns. haseeb los medicamentos. tate un seguimiento con caro m?dico. Regrese si tiene fiebre, dolor, sangrado, aumento de la hinchaz?n o cualquier otra inquietud. Prescriptions: New thiamine HCl (vitamin B1) 100 mg tablet 100 mg PO DAILY Qty: 30 0RF magnesium oxide 400 mg magnesium tablet 400 mg PO DAILY Qty: 30 0RF No Action acetaminophen 325 mg Tablet 650 mg PO Q6H PRN (Reason: Headache) spironolactone 25 mg Tablet 25 mg PO DAILY Qty: 30 0RF Protocol: Hold for SBP< HOLD for SBP < : 90 furosemide 20 mg Tablet 20 mg PO DAILY Qty: 30 0RF Protocol: Hold for SBP< HOLD for SBP < : 90 alum-mag hydroxide-simeth [Maalox Advanced] 200-200-20 mg/5 mL suspension 10 ml PO QID PRN (Reason: dyspepsia) Qty: 355 0RF Rx Instructions: administer between meals and at bedtime Print Language: Bengali
[2023-07-21 23:15] VITALS: BP 118/59; PULSE 59; RESP 16; TEMP 36.7; O2SAT 98
--- NOTE | 2023-07-21 23:15 | MHC.EDTECH ---
PATIENT VITALS SIGN TAKEN AND BLOOD DRAWN AND SENT TO LAB .
[2023-07-21 23:17] LABS: MANUAL DIFF FLAG NO
[2023-07-21 23:18] LABS: Basophils Absolute Auto 0.1 X10*3/uL (0.0-0.2); Basophils Percent Auto 0.8 % (0-2); Eosinophils Absolute Auto 0.1 X10*3/uL (0.0-0.4); Eosinophils Percent Auto 2.1 % (0-4); Hematocrit 24.3 % (42.0-52.0); Hemoglobin 8.2 g/dl (14.0-18.0); Imm Gran Abs Auto 0.02 X10*3/uL (0.00-0.03); Imm Gran Pct Auto 0.3 % (0.0-0.4); Lymphocytes Percent Auto 15.8 % (20-40); Mean Corpuscular HGB Conc 33.7 g/dl (31.0-36.0); Mean Corpuscular Hemoglobin 34.5 pg (27.0-33.0); Mean Corpuscular Volume 102.1 fL (80.0-98.0); Mean Platelet Volume 11.8 fL (9.4-12.4); Monocytes Absolute Auto 0.6 X10*3/uL (0.1-1.2); Monocytes Percent Auto 10.4 % (2-11); Neutrophils Absolute Auto 4.3 x10*3/uL (2.0-8.3); Neutrophils Percent Auto 70.6 % (45-73); Red Blood Count 2.38 X10*6/uL (4.60-5.80); Red Cell Distribution Width 17.7 % (11.0-16.0); White Blood Count 6.1 X10*3/uL (4.8-10.8)
[2023-07-21 23:28] LABS: INTERNATIONAL NORM RATIO 2.2 (0.9-1.1); Prothrombin Time 26.9 SEC (11.1-13.3)
[2023-07-21 23:38] LABS: Platelet Count 61 X10*3/uL (160-400)
[2023-07-21 23:40] LABS: Alanine Aminotransferase 10 U/L (0-40); Albumin Level 2.6 g/dL (3.5-5.0); Alkaline Phosphatase 97 U/L (39-117); Anion Gap 9 (12-20); Aspartate Amino Transferase 39 U/L (5-37); Bilirubin Direct 1.1 mg/dL (0.0-0.5); Blood Urea Nitrogen 18 mg/dL (9-16); Calcium 8.9 mg/dL (8.4-10.2); Carbon Dioxide 20 mmol/L (22-29); Chloride 113 mmol/L (96-108); Creatinine Clr Calc Pharmacy 90.2; Estimated Glomerular Filt Rate > 60; Ethanol < 10 mg/dL; Glucose Random 101 mg/dL (60-115); Lipase 74 U/L (8-78); Magnesium 1.5 mg/dL (1.6-2.6); Potassium 4.2 mmol/L (3.3-5.1); Sodium 138 mmol/L (135-145); Total Protein 7.9 g/dL (6.5-8.0)
[2023-07-21 23:42] LABS: B Type Natriuretic Peptide 361 pg/mL (<100)
[2023-07-21 23:48] LABS: Acetaminophen LAB < 17 mcg/mL (<30)
[2023-07-22] MEDS: Magnesium Oxide 400 MG TABLET 800 MG PO (00:09)
[2023-07-22 00:34] LABS: Ammonia 54 umol/L (13-55)
[2023-07-22 01:07] VITALS: BP 123/60; PULSE 83; RESP 16; TEMP 37.1; O2SAT 95
--- NOTE | 2023-07-22 01:07 | PC.NURSE ---
this rn assumed care of pt @ 2300.pt calm and cooperative. vss. pt ambulatory at discharge.pt provided with discharge packet. pt verbalized understanding of discharge plan
== END 2023-07-22 01:11 | disposition home or self-care (01) ==
PROVIDERS: Emergency Provider Emergency Medicine
DX: E83.42 Hypomagnesemia (principal); K70.31 Alcoholic cirrhosis of liver with ascites; I50.9 Heart failure, unspecified; D64.9 Anemia, unspecified; Z87.891 Personal history of nicotine dependence; Z87.01 Personal history of pneumonia (recurrent)
CPT/HCPCS: 36415; 76705; 80048; 80076; 80143; 80307; 82140; 83690; 83735; 83880; 85025; 85610; 99284

== ENCOUNTER 2023-07-23 20:09 | Emergency (ER) | payer MEDICAID, SELFPAY ==
[2023-07-23 20:16] VITALS: BP 110/64; PULSE 89; O2SAT 94
[2023-07-23 21:13] VITALS: BP 98/56; PULSE 86; RESP 16; O2SAT 95; BMI 18.7
--- NOTE | 2023-07-23 21:39 | PC.NURSE ---
assumed care of patient at 2100, pt sleeping at this time, respirations even and unlabored, skin pwd, no apparent distress Pt changed over and belongings secured
--- NOTE | 2023-07-23 22:01 | ED.ALCOHOL ---
HPI - Alcohol General Chief Complaint: ETOH/Substance Use Stated Complaint: ETOH Time Seen by Provider: 07/23/23 20:12 History of Present Illness HPI narrative: Patient is a 53-year-old male with a history of liver cirrhosis, history of congestive heart failure. Found grossly intoxicated sent in for further evaluation. Patient denies any trauma. Drank for recreational reasons. Related Data Home Medications Medication Instructions Recorded Confirmed acetaminophen 325 mg tablet 650 mg PO Q6H PRN Headache 06/08/23 06/25/23 Previous Rx's Medication Instructions Recorded aluminum-mag hydroxide-simethicone 10 ml PO QID PRN dyspepsia #355 mL 07/12/23 200 mg-200 mg-20 mg/5 mL oral susp (Maalox Advanced) furosemide 20 mg tablet 20 mg PO DAILY #30 tabs 07/12/23 spironolactone 25 mg tablet 25 mg PO DAILY #30 tabs 07/12/23 magnesium oxide 400 mg PO DAILY #30 tabs 07/22/23 thiamine HCl (vitamin B1) 100 mg 100 mg PO DAILY #30 tabs 07/22/23 tablet Allergies Allergy/AdvReac Type Severity Reaction Status Date / Time No Known Allergies Allergy Verified 06/24/23 18:44 [No Known Allergies*] Review of Systems Review of Systems: Positive ETOH Yes all other systems are reviewed and are negative PMFSH Past Medical History Attestation statement: The following information was validated with the patient. Medical History Cirrhosis Thrombocytopenia Alcoholic liver disease Acute on chronic anemia CHF (congestive heart failure) Anemia Alcohol abuse Surgical History No history of previous surgery Social History Social History Household Members: None Household Members Other:: pt homeless Housing: Other Housing Other:: homeless Do you presently have visiting nurse or other home services: No Alcohol intake: current Alcohol intake frequency: 0-2 drinks per day Alcohol type: beer and hard liquor Patient Tobacco Use Status: Former Tobacco user Quit Date: 12 years ago Tobacco use type: Cigarette Smoked in Last 30 Days: Yes Second Hand Smoke Exposure: No Use of substances other than those prescribed or required for medical reasons: Refusing to respond Advance Directives: Yes Advance Directives on File: Yes Advance Directives Date on File: 07/13/23 service: No Physical Exam ED Vital Signs: Vital Signs - 24 hr 07/23/23 21:13 07/24/23 00:08 Temperature 98.6 F Pulse Rate 86 85 Respiratory Rate 16 16 Blood Pressure 98/56 L 100/56 L Pulse Oximetry 95 98 Oxygen Delivery Method Room Air Room Air BMI result Body Mass Index 18.7 Appearance: Sleepy No acute distress. Eyes: Pupils equal, round and reactive to light. ENT: Pharynx normal. Neck: Normal inspection. Neck supple. No lymph nodes noted. No crepitus CVS: Normal heart rate and rhythm. Pulses normal. Normal S1 and S2 Respiratory: No respiratory distress. Breath sounds normal. No Wheezing. No rales Abdomen: Soft and nontender. No rigidity. No distention. good BS x4 Skin: Skin warm and dry. Normal skin color. Normal skin turgor. Extremities: No lower extremity edema. Neurovascular intact to all extremities. No Lacerations. No Rash Neuro: Oriented X 3. No motor deficit. No sensory deficit. Moving all extermities. No slurred speech Medical Decision Making Medical Decision Making [facility] Narrative: Patient appear grossly intoxicated. Liver enzymes are proximally baseline. Alcohol was over 200. Currently awaiting sobering. No acute distress. No suicidal homicidal ideations. Differential Diagnosis Differential Diagnoses: The differential diagnosis associated with the presentation includes Alcohol intoxication Lab Data [facility] Lab Attestation statement: I reviewed the patient's lab results. 07/23/23 23:16 07/23/23 23:17 Labs: Lab Results 07/23/23 07/23/23 Range/Units 23:16 23:17 WBC 6.5 (4.8-10.8) X10*3/uL RBC 2.15 L (4.60-5.80) X10*6/uL Hgb 7.4 L (14.0-18.0) g/dl Hct 21.6 L (42.0-52.0) % MCV 100.5 H (80.0-98.0) fL MCH 34.4 H (27.0-33.0) pg MCHC 34.3 (31.0-36.0) g/dl RDW 17.3 H (11.0-16.0) % Plt Count 56 L (160-400) X10*3/uL MPV 11.2 (9.4-12.4) fL Immature Gran % (Auto) 0.3 (0.0-0.4) % Neut % (Auto) 70.7 (45-73) % Lymph % (Auto) 15.0 L (20-40) % [place] % (Auto) 10.5 (2-11) % Eos % (Auto) 2.9 (0-4) % Baso % (Auto) 0.6 (0-2) % Lymph # (Auto) 1.0 L (1.2-4.9) X10*3/uL [place] # (Auto) 0.7 (0.1-1.2) X10*3/uL Eos # (Auto) 0.2 (0.0-0.4) X10*3/uL Baso # (Auto) 0.0 (0.0-0.2) X10*3/uL Abs Immat Gran (auto) 0.02 (0.00-0.03) X10*3/uL Absolute Neuts (auto) 4.6 (2.0-8.3) x10*3/uL Absolute Nucleated RBC 0.000 (0.0-0.012) X10*3/uL Nucleated RBC % (auto) 0.0 (0.0-0.2) /100WBC Sodium 138 (135-145) mmol/L Potassium 4.0 (3.3-5.1) mmol/L Chloride 112 H (96-108) mmol/L Carbon Dioxide 18 L (22-29) mmol/L Anion Gap 12 (12-20) BUN 12 (9-16) mg/dL Creatinine 0.67 (0.5-1.4) mg/dL Estim Creat Clear Calc 99.4 Estimated GFR > 60 Random Glucose 118 H (60-115) mg/dL Calcium 8.6 (8.4-10.2) mg/dL Total Bilirubin 1.7 H (0.0-1.0) mg/dL Direct Bilirubin 0.9 H (0.0-0.5) mg/dL AST 50 H (5-37) U/L ALT 14 (0-40) U/L Alkaline Phosphatase 107 (39-117) U/L Total Protein 7.9 (6.5-8.0) g/dL Albumin 2.7 L (3.5-5.0) g/dL Ethyl Alcohol 203 mg/dL External Record Review External record reviewed: Inpatient record Chronic Conditions Long history of alcohol abuse history of congestive heart failure, liver cirrhosis Medications Administered Discontinued Medications Generic Name Dose Route Start Last Admin Trade Name Freq PRN Reason Stop Dose Admin Sodium Chloride 1,000 mls @ 999 mls/hr 07/23/23 22:15 07/23/23 23:23 Ns IV 07/23/23 23:15 999 mls/hr .[id number] JOSE MANUEL Administration Discharge Plan Discharge Clinical Impression: Alcoholic intoxication Patient Disposition: Home, Self-Care Instructions: Abuse of Alcohol (DC) Prescriptions: No Action acetaminophen 325 mg Tablet 650 mg PO Q6H PRN (Reason: Headache) spironolactone 25 mg Tablet 25 mg PO DAILY Qty: 30 0RF Protocol: Hold for SBP< HOLD for SBP < : 90 furosemide 20 mg Tablet 20 mg PO DAILY Qty: 30 0RF Protocol: Hold for SBP< HOLD for SBP < : 90 alum-mag hydroxide-simeth [Maalox Advanced] 200-200-20 mg/5 mL suspension 10 ml PO QID PRN (Reason: dyspepsia) Qty: 355 0RF Rx Instructions: administer between meals and at bedtime thiamine HCl (vitamin B1) 100 mg tablet 100 mg PO DAILY Qty: 30 0RF magnesium oxide 400 mg magnesium tablet 400 mg PO DAILY Qty: 30 0RF Referrals: Physician,Unknown J [Primary Care Provider] - 07/26/23
[2023-07-23] MEDS: 0.9 % Sodium Chloride 1,000 ML 999 ML IV (23:23)
[2023-07-23 23:26] LABS: Basophils Percent Auto 0.6 % (0-2); Eosinophils Absolute Auto 0.2 X10*3/uL (0.0-0.4); Eosinophils Percent Auto 2.9 % (0-4); Hematocrit 21.6 % (42.0-52.0); Hemoglobin 7.4 g/dl (14.0-18.0); Imm Gran Abs Auto 0.02 X10*3/uL (0.00-0.03); Imm Gran Pct Auto 0.3 % (0.0-0.4); Mean Corpuscular HGB Conc 34.3 g/dl (31.0-36.0); Mean Corpuscular Hemoglobin 34.4 pg (27.0-33.0); Mean Corpuscular Volume 100.5 fL (80.0-98.0); Mean Platelet Volume 11.2 fL (9.4-12.4); Monocytes Absolute Auto 0.7 X10*3/uL (0.1-1.2); Monocytes Percent Auto 10.5 % (2-11); Neutrophils Absolute Auto 4.6 x10*3/uL (2.0-8.3); Neutrophils Percent Auto 70.7 % (45-73); Red Blood Count 2.15 X10*6/uL (4.60-5.80); Red Cell Distribution Width 17.3 % (11.0-16.0); White Blood Count 6.5 X10*3/uL (4.8-10.8)
[2023-07-23 23:27] LABS: MANUAL DIFF FLAG NO; Platelet Count 56 X10*3/uL (160-400)
[2023-07-23 23:46] LABS: Alanine Aminotransferase 14 U/L (0-40); Albumin Level 2.7 g/dL (3.5-5.0); Alkaline Phosphatase 107 U/L (39-117); Anion Gap 12 (12-20); Aspartate Amino Transferase 50 U/L (5-37); Bilirubin Direct 0.9 mg/dL (0.0-0.5); Bilirubin Total 1.7 mg/dL (0.0-1.0); Blood Urea Nitrogen 12 mg/dL (9-16); Calcium 8.6 mg/dL (8.4-10.2); Carbon Dioxide 18 mmol/L (22-29); Chloride 112 mmol/L (96-108); Creatinine Clr Calc Pharmacy 99.4; Estimated Glomerular Filt Rate > 60; Ethanol 203 mg/dL; Glucose Random 118 mg/dL (60-115); Sodium 138 mmol/L (135-145); Total Protein 7.9 g/dL (6.5-8.0)
[2023-07-24 00:08] VITALS: BP 100/56; PULSE 85; RESP 16; TEMP 37; O2SAT 98
--- NOTE | 2023-07-24 00:33 | PC.NURSE ---
18g IV placed in RFA, medications administered. pt continues to sleep, respirations even and unlabored, skin pwd, no apparent distress. Fluids completed at this time
[2023-07-24 03:44] VITALS: RESP 16
[2023-07-24 06:02] VITALS: RESP 15
== END 2023-07-24 06:42 | disposition home or self-care (01) ==
PROVIDERS: Emergency Provider Emergency Medicine Emergency Medical Services
DX: F10.129 Alcohol abuse with intoxication, unspecified (principal); Y90.7 Blood alcohol level of 200-239 mg/100 ml; Z87.891 Personal history of nicotine dependence; Z79.899 Other long term (current) drug therapy
CPT/HCPCS: 36415; 80048; 80076; 80307; 85025; 99283; 99284

== ENCOUNTER 2023-08-03 14:34 | Inpatient (IN) | payer MEDICAID, SELFPAY ==
--- NOTE | ~2023-08-03 | CT_ITS ---
EXAMINATION: CT CHEST, ABDOMEN AND PELVIS WITH CONTRAST. CLINICAL INFORMATION: Hypoxia, fever, abdominal pain. COMPARISON: CT chest 07/01/2023. CT abdomen/pelvis 05/25/2023. TECHNIQUE: Multidetector volumetric imaging was performed from the thoracic inlet through the pubic symphysis following administration of 85 mL Omnipaque 350 intravenous contrast. Sagittal and coronal reformatted images were obtained on the technologist's workstation. This CT examination was performed using dose optimization techniques as appropriate, variously including the following: *Automated exposure control *Adjustment of mA and/or kV according to patient size (this includes techniques or standardized protocols for targeted exams where dose is matched to indication/reason for exam; i.e. extremities or head) *Use of iterative reconstruction technique DLP: 113 and 232 mGy-cm FINDINGS: Evaluation is very limited due to motion. CHEST: Lung: Multifocal groundglass opacities. Moderate-sized bilateral pleural effusions with associated bibasilar airspace opacities. Central airways are patent. Evaluation of pulmonary nodules is very limited due to motion and overlying airspace opacities/pleural effusions. No discrete pulmonary mass. Mediastinum: Stable cardiomegaly. No pericardial effusion. Multifocal coronary artery calcifications are noted. No hilar or mediastinal lymphadenopathy. Normal thyroid gland. Pericardium/Pleura: As above, moderate size bilateral pleural effusions. No pneumothorax. Chest Wall/Axilla: No lymphadenopathy by size criteria. ABDOMEN/PELVIS: Peritoneal Space: Moderate volume of ascites. Liver, Gallbladder, Biliary Tree: The liver is enlarged measuring 18.3 cm and demonstrates decreased parenchymal attenuation suggesting hepatic steatosis. Equivocal nodular contour of the liver that could be seen with cirrhosis. No discrete focal liver lesion. Layering gallbladder calculi and sludge. Diffuse gallbladder wall thickening and pericholecystic free fluid are nonspecific in the setting of ascites and liver disease. Pancreas: No main duct dilatation. Homogeneous attenuation of the parenchyma. Spleen: The spleen measures 12.6 cm craniocaudally. No discrete focal lesion. Adrenal Glands: No adrenal mass. Kidneys and Ureters: The kidneys are normal in size, shape, and attenuation. No hydronephrosis, hydroureter, or calculi seen. No perinephric stranding. Bladder: Underdistended limiting its evaluation. Gastrointestinal Tract: Evaluation of the bowel is limited due to motion. The stomach and the small bowel are nondilated. The appendix is not identified. Severe pancolonic and rectal wall thickening, more noticeable at the level of the ascending colon and rectum. Diffuse mesenteric haziness with interloop fluid and moderate volume of ascites. Abdominal Wall: No significant hernia is appreciated. Lymphovascular Structures: Normal caliber abdominal aorta. Main portal vein is patent. Atherosclerotic disease. Recanalized umbilical vein and upper abdominal portosystemic varices, suggesting portal hypertension. Prominent periportal and retroperitoneal lymph nodes are nonspecific. Pelvic Viscera: Unremarkable. Osseous Structures: Stable severe compression deformity at T8. Chronic mid sternal fracture. Chronic posterior left-sided 12th rib deformity. Subjective increased diffuse bone marrow sclerosis is unchanged. Very limited, essentially nondiagnostic evaluation of the osseous structures in the pelvis due to motion. CT/CT abdomen pelvis w IV con IMPRESSION: Evaluation is very limited due to motion. 1. Severe sandy colonic and rectal wall thickening with a targetoid pattern of enhancement. In the context of moderate volume of ascites, interloop free fluid and mesenteric haziness, some degree of vascular compromise of the bowel cannot be excluded, although these findings could also be explained by portal hypertension. No evidence of pneumatosis or free air. Evaluation of vascular mesenteric patency is limited due to motion and timing of IV contrast. 2. Hepatosplenomegaly with hepatic steatosis and possibly liver cirrhosis. 3. Findings indicative of portal hypertension. 4. Cholelithiasis. Nonspecific gallbladder wall thickening and pericholecystic free fluid in the context of ascites and liver disease. Recommend clinical correlation for acute cholecystitis. 5. Multifocal groundglass opacities in the lungs with bibasilar compressive atelectasis/consolidative opacities and moderate-sized bilateral pleural effusions. Recommend clinical correlation for volume overload/pulmonary edema as well as the presence of a superimposed respiratory infectious/inflammatory process. 6. Chronic diffuse increased sclerosis of the bone marrow of the axial and appendicular skeleton, fairly nonspecific could be related with a metabolic or myeloproliferative disorder. 7. Chronic severe compression deformity of T8. 8. Multivessel coronary artery calcifications. Scattered atherosclerotic disease. Cardiomegaly.
--- NOTE | ~2023-08-03 | XR_ITS ---
EXAMINATION: XR CHEST CLINICAL INFORMATION: Pneumonia follow-up COMPARISON: 08/05/2023 chest radiograph and 08/07/[address] TECHNIQUE: Frontal view of the chest was obtained. FINDINGS: Low lung volumes are present, nevertheless, bilateral pulmonary opacities appear more pronounced. Likely bilateral effusions, moderate on the left, small on the right. Mild degenerative changes. XR/XR chest 1V IMPRESSION: Suspect progression of bilateral airspace disease although in part influenced by low lung volumes. Unclear as to the extent of vascular congestion and/or superimposed consolidations. Likely bilateral effusions, left greater than right.
--- NOTE | ~2023-08-03 | XR_ITS ---
EXAMINATION: XR CHEST CLINICAL INFORMATION: CHF COMPARISON: 06/30/2023 TECHNIQUE: Frontal view of the chest was obtained. FINDINGS: Overall increased markings radiating to the hilar regions with probable bilateral small effusions. Findings would be most consistent with CHF. Some more confluent opacities in the lower lung zones may represent airspace edema. The cardiac silhouette is prominent. XR/XR chest 1V IMPRESSION: Given the history findings would be most consistent with CHF. Small bilateral effusions
--- NOTE | ~2023-08-03 | XR_ITS ---
EXAMINATION: XR chest 1V CLINICAL INFORMATION: Reason for Exam fever, hypoxia COMPARISON: 08/03/2023 TECHNIQUE: XR chest 1V Tubes and lines: None Lungs and pleura: There is pulmonary vascular congestion, diffuse interstitial opacification possibly interstitial edema, and the right clinical setting, cannot rule out underlying superimposed infiltrates. Blunting of costophrenic angle suggesting small subpulmonic pleural effusions. Heart and mediastinum: Cardiac silhouette is prominent, this is exaggerated by AP technique.. Bones/soft tissue: Skeletal structures included are normal for patient's age. XR/XR chest 1V IMPRESSION: * Prominence of the pulmonary vasculature. * Diffuse interstitial opacification concerning for possible interstitial edema, in the right clinical setting, cannot rule out underlying superimposed infiltrates. * Blunting of costophrenic angle suggesting small subpulmonic pleural effusions.
[2023-08-03 14:40] VITALS: BP 121/56; BP 128/62; PULSE 102; PULSE 115; RESP 20; TEMP 37.1; O2SAT 98; BMI 23.2
--- NOTE | 2023-08-03 14:44 | ECG_ITS ---
Test Reason : edema Blood Pressure : / mmHG Vent. Rate : 110 BPM Atrial Rate : 110 BPM P-R Int : 144 ms QRS Dur : 076 ms QT Int : 348 ms P-R-T Axes : 035 012 034 degrees QTc Int : 470 ms Sinus tachycardia Otherwise normal ECG When compared with ECG of 24-JUN-2023 19:08, No significant change was found Referred By: Antonella Goldsmith Electronically Signed By:MARY PAZ
--- NOTE | 2023-08-03 14:47 | ED_ITS ---
HPI - SOB/Dyspnea General Chief Complaint: ETOH/Substance Use Stated Complaint: ETOH Source: patient, EMS and old records reviewed Mode of arrival: EMS Limitations: no limitations History of Present Illness HPI Narrative: A 53-year-old male homeless is well known to our staff with a history of alcohol abuse,CHF and liver cirrhosis. Patient admit last drink was early today. Patient is complaining of bilateral lower extremity swelling and edema, the swelling is also worsening in his upper extremities and face. Patient with known ascites that is also getting worse. Patient and admitting to exertional dyspnea and PND. Patient admit that he is not compliant with his medication only takes Tylenol if needed for headache. Patient otherwise declines any rectal bleeding or bleeding from any other source. Related Data Home Medications Medication Instructions Recorded Confirmed acetaminophen 325 mg tablet 650 mg PO Q6H PRN Headache 06/08/23 08/03/23 Allergies Allergy/AdvReac Type Severity Reaction Status Date / Time No Known Allergies Allergy Verified 06/24/23 18:44 [No Known Allergies*] Review of Systems 2 Review of Systems: All other systems are reviewed and are negative Constitutional: Reports as per HPI and Reports no additional constitutional complaints Eyes: Reports as per HPI and Reports no additional eye complaints Reports system reviewed and no additional complaints, except as documented Cardiovascular: Reports as per HPI and Reports no additional cardiovascular complaints Respiratory: Reports as per HPI and Reports no additional respiratory complaints Gastrointestinal: Reports as per HPI and Reports no additional gastrointestinal complaints Genitourinary: Reports no additional female genitourinary complaints Musculoskeletal: Reports no additional musculoskeletal complaints Skin/Breast: Reports system reviewed and no additional complaints, except as docu Psychiatric: Reports no additional psychiatric complaints Endocrine: Reports no additional endocrine complaints Hematologic/Lymphatic: Reports no additional hematologic/lymphatic complaints Allergic/Immunologic: Reports no additional allergic/immunologic complaints Reports system reviewed and no additional complaints, except as documented and Reports Abnormal speech present [facility] Past Medical History Medical History Cirrhosis Thrombocytopenia Alcoholic liver disease Acute on chronic anemia CHF (congestive heart failure) Anemia Alcohol abuse Surgical History No history of previous surgery Social History Social History Household Members: None Household Members Other:: pt homeless Housing: Other Housing Other:: homeless Do you presently have visiting nurse or other home services: No Alcohol intake: current Alcohol intake frequency: 0-2 drinks per day Alcohol type: beer and hard liquor Patient Tobacco Use Status: Former Tobacco user Quit Date: 12 years ago Tobacco use type: Cigarette Second Hand Smoke Exposure: No Advance Directives: Yes Advance Directives on File: Yes Advance Directives Date on File: 07/13/23 service: No Physical Exam 2 Vital Signs: Vital Signs: Last Vital Signs Temp 98.8 F 08/03/23 14:40 Pulse 115 H 08/03/23 14:40 Resp 20 08/03/23 14:40 BP 121/56 L 08/03/23 14:40 Pulse Ox 98 08/03/23 14:40 O2 Del Method Room Air 08/03/23 14:40 BMI result Body Mass Index 23.2 Vital signs have been reviewed and appear to be correct. Blood pressure elevated. Heart rate normal. Respiratory rate normal. Temperature normal. Oxygen saturation normal. Appearance: Alert. Oriented X3. No acute distress. Head: Normal external exam. Normocephalic. Atraumatic. No [place] signs noted. No raccoon eyes noted Eyes: PERRLA. EOMI. Conjunctiva and sclera normal. Eyelids normal. ENT: TM's Normal. Pharynx normal. Uvula midline. Moist mucous membranes. No trismus noted. No drooling noted. No muffled voice noted. Neck: Normal inspection. Neck supple. FROM. No adenopathy. Thyroid Normal. No meningeal signs. No neck mass noted. CVS: Normal heart rate and rhythm. Heart sound normal. No murmurs noted. Pulses normal throughout. Respiratory: No respiratory distress. Painless inspiration. Breath sounds normal. No wheezes/rales/rhonchi noted. Chest nontender. No accessory muscle usage noted or decreased air movement noted. Abdomen: Soft and nontender. Bowel sounds normal in all 4 quadrants. No distention noted. No organomegaly noted. No visible injury noted. Rectal exam: Brown stool guaiac negative. Back: No CVA tenderness. Full range of motion noted. Skin: Skin warm and dry. Normal skin color. Normal skin turgor. No rashes/lesions/lacerations noted. Extremities: +2 bilat lower extremity edema. Extremities exhibit normal range of motion. Extremities nontender. Neuro: Oriented X 3. Cranial nerve exam: II-XII are grossly intact No motor deficit. No sensory deficit. Reflexes normal. Course Course Course Narrative: a 53-year-old male homeless with history of CHF and alcoholic liver cirrhosis came in with exertional dyspnea and bilateral lower extremity swelling and edema. Patient found to be anemic with no source of bleeding patient had nose bleed for brief time early today but otherwise no blood in the stool or in the urine. Last bowel movement was this morning and he had a brown stool. Rectal exam revealed negative blood in the stool. Medications Administered Generic Name Dose Route Start Last Admin Trade Name Freq PRN Reason Stop Dose Admin Albumin Human 100 mls @ 100 mls/hr 08/03/23 17:30 08/03/23 18:05 Kedbumin 25 % IV 08/03/23 19:29 100 mls/hr Q1H JOSE MANUEL Administration Discontinued Medications Generic Name Dose Route Start Last Admin Trade Name Freq PRN Reason Stop Dose Admin Folic Acid 1 mg 08/03/23 14:46 08/03/23 15:08 Folic Acid 1 Mg Tablet PO 08/03/23 14:47 1 mg ONCE ONE Administration Furosemide 40 mg 08/03/23 14:42 08/03/23 15:09 Furosemide 40 Mg/4 Ml Vial IVPUSH 08/03/23 14:43 40 mg ONCE ONE Administration Protocol Phenobarbital Sodium 306.8 mg 08/03/23 16:00 08/03/23 16:33 Phenobarbital Sodium 130 Mg/Ml Im Once IM 08/03/23 16:01 306.8 mg ONCE ONE Administration Protocol Thiamine HCl 100 mg 08/03/23 14:46 08/03/23 15:08 Thiamine Hcl 100 Mg Tablet PO 08/03/23 14:47 100 mg ONCE ONE Administration Medical Decision Making Differential Diagnosis Differential Diagnoses: The differential diagnosis associated with the presentation includes ( Severe anemia, electrolyte abnormality, congestive heart failure, pneumonia, pleural effusion.) Admission/Observation Consideration of admission/observation: Escalation of care including admission/observation considered Consult Healthcare Provider Management of the patient was discussed with: Hospitalist (Vimal) Lab Data MDM Lab Attestation statement: I reviewed the patient's lab results. 08/03/23 15:02 08/03/23 15:01 Labs: Lab Results 08/03/23 08/03/23 08/03/23 Range/Units 15:01 15:02 17:24 WBC 4.8 (4.8-10.8) X10*3/uL RBC 1.85 L (4.60-5.80) X10*6/uL Hgb 6.5 L* (14.0-18.0) g/dl Hct 18.8 L* (42.0-52.0) % MCV 101.6 H (80.0-98.0) fL MCH 35.1 H (27.0-33.0) pg MCHC 34.6 (31.0-36.0) g/dl RDW 17.7 H (11.0-16.0) % Plt Count 45 L (160-400) X10*3/uL MPV 11.8 (9.4-12.4) fL Immature Gran % (Auto) 0.6 H (0.0-0.4) % Neut % (Auto) 66.6 (45-73) % Lymph % (Auto) 18.7 L (20-40) % [place] % (Auto) 12.2 H (2-11) % Eos % (Auto) 1.5 (0-4) % Baso % (Auto) 0.4 (0-2) % Lymph # (Auto) 0.9 L (1.2-4.9) X10*3/uL [place] # (Auto) 0.6 (0.1-1.2) X10*3/uL Eos # (Auto) 0.1 (0.0-0.4) X10*3/uL Baso # (Auto) 0.0 (0.0-0.2) X10*3/uL Abs Immat Gran (auto) 0.03 (0.00-0.03) X10*3/uL Absolute Neuts (auto) 3.2 (2.0-8.3) x10*3/uL Absolute Nucleated RBC 0.000 (0.0-0.012) X10*3/uL Nucleated RBC % (auto) 0.0 (0.0-0.2) /100WBC PT 21.4 H D (11.1-13.3) SEC INR 1.8 H (0.9-1.1) APTT 36.7 H (26.0-36.4) SEC Sodium 136 (135-145) mmol/L Potassium 3.8 (3.3-5.1) mmol/L Chloride 109 H (96-108) mmol/L Carbon Dioxide 21 L (22-29) mmol/L Anion Gap 10 L (12-20) BUN 9 (9-16) mg/dL Creatinine 0.61 (0.5-1.4) mg/dL Estim Creat Clear Calc 124.9 Estimated GFR > 60 Random Glucose 114 (60-115) mg/dL Calcium 8.8 (8.4-10.2) mg/dL Magnesium 1.4 L* (1.6-2.6) mg/dL Total Bilirubin 2.8 H (0.0-1.0) mg/dL Direct Bilirubin 1.1 H (0.0-0.5) mg/dL AST 40 H (5-37) U/L ALT 11 (0-40) U/L Alkaline Phosphatase 91 (39-117) U/L Troponin I High Sens 6.4 D (<3.5-35.0) ng/L B-Natriuretic Peptide 362 H (<100) pg/mL Total Protein 7.6 (6.5-8.0) g/dL Albumin 2.5 L (3.5-5.0) g/dL Lipase 45 (8-78) U/L Ethyl Alcohol 69 mg/dL Influenza Type A (PCR) NEGATIVE (Negative) Influenza Type B (PCR) NEGATIVE (Negative) RSV RNA Qual (PCR) NEGATIVE (Negative) SARS-CoV-2 RNA (RT-PCR) NEGATIVE (Negative) Blood Type B Positive Antibody Screen NEGATIVE Crossmatch See Detail Independent Interpretation I performed an independent interpretation of an: Plain X-Ray ( chest: CHF ) Radiology Impression Discussion of test interpretation with radiology: I have reviewed the radiologist's reading. Critical Care Time Critical Care Time Critical Care Time: Yes Total Critical Care Time: 60 Attestation: I spent 60 minutes providing critical care service to the patient, this including time spent at the bedside to evaluate the patient, reassess the patient, monitoring vital signs, review labs, and radiographic studies, counseling the patient/family, discussing the case with consultants, disposition the patient. Discharge Plan Discharge Clinical Impression: Alcohol withdrawal syndrome, Anemia, CHF (congestive heart failure), Edema Patient Disposition: Admitted As Inpatient
[2023-08-03 15:06] LABS: MANUAL DIFF FLAG NO
[2023-08-03 15:07] LABS: Basophils Percent Auto 0.4 % (0-2); Eosinophils Absolute Auto 0.1 X10*3/uL (0.0-0.4); Eosinophils Percent Auto 1.5 % (0-4); Imm Gran Abs Auto 0.03 X10*3/uL (0.00-0.03); Imm Gran Pct Auto 0.6 % (0.0-0.4); Lymphocytes Absolute Auto 0.9 X10*3/uL (1.2-4.9); Lymphocytes Percent Auto 18.7 % (20-40); Mean Corpuscular HGB Conc 34.6 g/dl (31.0-36.0); Mean Corpuscular Hemoglobin 35.1 pg (27.0-33.0); Mean Corpuscular Volume 101.6 fL (80.0-98.0); Mean Platelet Volume 11.8 fL (9.4-12.4); Monocytes Absolute Auto 0.6 X10*3/uL (0.1-1.2); Monocytes Percent Auto 12.2 % (2-11); Neutrophils Absolute Auto 3.2 x10*3/uL (2.0-8.3); Neutrophils Percent Auto 66.6 % (45-73); Red Blood Count 1.85 X10*6/uL (4.60-5.80); Red Cell Distribution Width 17.7 % (11.0-16.0); White Blood Count 4.8 X10*3/uL (4.8-10.8)
[2023-08-03] MEDS: Thiamine HCL 100 MG TABLET PO (15:08)
[2023-08-03] MEDS: Folic Acid 1 MG TABLET PO (15:08)
[2023-08-03] MEDS: Furosemide 40 MG/4 ML VIAL IVPUSH (15:09)
[2023-08-03 15:11] LABS: Hematocrit 18.8 % (42.0-52.0); Hemoglobin 6.5 g/dl (14.0-18.0); Platelet Count 45 X10*3/uL (160-400)
[2023-08-03 15:21] LABS: Ethanol 69 mg/dL; INTERNATIONAL NORM RATIO 1.8 (0.9-1.1); Prothrombin Time 21.4 SEC (11.1-13.3)
[2023-08-03 15:23] LABS: Alanine Aminotransferase 11 U/L (0-40); Albumin Level 2.5 g/dL (3.5-5.0); Alkaline Phosphatase 91 U/L (39-117); Anion Gap 10 (12-20); Aspartate Amino Transferase 40 U/L (5-37); Bilirubin Direct 1.1 mg/dL (0.0-0.5); Bilirubin Total 2.8 mg/dL (0.0-1.0); Blood Urea Nitrogen 9 mg/dL (9-16); Calcium 8.8 mg/dL (8.4-10.2); Carbon Dioxide 21 mmol/L (22-29); Chloride 109 mmol/L (96-108); Creatinine Clr Calc Pharmacy 124.9; Estimated Glomerular Filt Rate > 60; Glucose Random 114 mg/dL (60-115); Lipase 45 U/L (8-78); Partial Thromboplastin Time 36.7 SEC (26.0-36.4); Potassium 3.8 mmol/L (3.3-5.1); Sodium 136 mmol/L (135-145); Total Protein 7.6 g/dL (6.5-8.0)
[2023-08-03 15:28] LABS: B Type Natriuretic Peptide 362 pg/mL (<100)
[2023-08-03 15:31] LABS: Troponin-I High Sensitivity 6.4 ng/L (<3.5-35.0)
[2023-08-03 15:47] LABS: Influenza A PCR NEGATIVE (Negative); Influenza B PCR NEGATIVE (Negative); Resp Syncy Virus RNA Qual PCR NEGATIVE (Negative); SARS COV2 PCR INHOUSE NEGATIVE (Negative)
[2023-08-03] MEDS: PHENobarbitaL sodium 130 MG/ML IM ONCE 306.8 MG IM (16:33)
--- NOTE | 2023-08-03 17:45 | PHA.MEDREC ---
Pharmacy Consult ? Medication Reconciliation Pharmacy has completed the medication reconciliation. Patient report only APAP. Patient denies taking anything that was prevousily prescribed at [facility] including Furosemide 20mg daily and Spironolactone 25 mg daily prescribed on 07/12 discahrge as well as thiamine 100 mg and mag oxide 400 mg prescribed in the ER 07/21/23. Isa Bustillos, PharmD
--- NOTE | 2023-08-03 18:02 | PM.IMHP ---
History of Present Illness Date of Service: 08/03/23 Chief Complaint: swelling, weakness, dyspnea on exertion A 53 years old male with PMH of Alcoholism, chronic liver disease, CHF among others who presents to the hospital by EMS for nose bleed and LE edema. The patient was found at the side of the road, intoxicated complaining of 2 episodes of nose bleed with worsening edema in his lower extremities. he reports not having his medicaitons for a while now. Denies any fever, chills, chest pain, abdominal pain, nausea, vomiting or diarrhea but reports that he is feeling weaker and getting SOB with exertion. denies any change in stool color or bleeding per rectum but reports nasal bleed for 2 times today. Found to have elevated BNP with drop in Hb to 6.5. transfused 1 unit of blood and admitted for further evaluation. Review of Systems Review of Systems: No fever, chills but reports weakness No chest pain, palpitation having exertional shortness of breath but no coughing No abdominal pain, nausea or vomiting No urinary symptoms No any rash or wounds PMFSH Medical History Cirrhosis Thrombocytopenia Alcoholic liver disease Acute on chronic anemia CHF (congestive heart failure) Anemia Alcohol abuse Surgical History No history of previous surgery Social History Household Members: None Household Members Other:: pt homeless Housing: Other Housing Other:: homeless Do you presently have visiting nurse or other home services: No Alcohol intake: current Alcohol intake frequency: 0-2 drinks per day Alcohol type: beer and hard liquor Patient Tobacco Use Status: Former Tobacco user Quit Date: 12 years ago Tobacco use type: Cigarette Second Hand Smoke Exposure: No Advance Directives: Yes Advance Directives on File: Yes Advance Directives Date on File: 07/13/23 service: No Meds Allergies Allergy/AdvReac Type Severity Reaction Status Date / Time No Known Allergies Allergy Verified 06/24/23 18:44 [No Known Allergies*] Active Medications: Current Medications Albumin Human (Kedbumin 25 %) 100 mls @ 100 mls/hr IV Q1H JOSE MANUEL Stop: 08/03/23 19:29 Ondansetron HCl (Ondansetron Hcl 4 Mg/2 Ml Vial) 4 mg IVPUSH Q8H PRN PRN Reason: Nausea and Vomiting Pantoprazole Sodium (Pantoprazole Sodium 40 Mg/10 Ml Vial) 40 mg IVPUSH BID@0630,1630 [facility] Pharmacy Consult (Consult Rx Etoh Phenob Im/Po) 1 each MISCELLANE ONCE PRN; Protocol PRN Reason: Consult order Phenobarbital (Phenobarbital 15 Mg Tablet) 45 mg PO BID [facility] Stop: 08/05/23 21:01 Phenobarbital (Phenobarbital 15 Mg Tablet) 15 mg PO BID [facility]; Protocol Stop: 08/07/23 21:01 Phenobarbital (Phenobarbital 15 Mg Tablet) 15 mg PO DAILY [facility]; Protocol Stop: 08/09/23 09:01 Phenobarbital Sodium (Phenobarbital Sodium 130 Mg/Ml Vial Im Q3hx2) 228.8 mg IM Q3H [facility]; Protocol Stop: 08/03/23 22:01 Sodium Chloride (0.9 % Sodium Chloride Flush 3 Ml Syringe) 3 ml IVFLUSH QSHIFT [facility] Home Medications Medication Instructions Recorded Confirmed Last Taken Type acetaminophen 325 mg tablet 650 mg PO Q6H PRN Headache 06/08/23 08/03/23 Unknown History Physical Exam Vital Signs and Narrative: Vital Signs: Last Vital Signs Temp 98.8 F 08/03/23 14:40 Pulse 115 H 08/03/23 14:40 Resp 20 08/03/23 14:40 BP 121/56 L 08/03/23 14:40 Pulse Ox 98 08/03/23 14:40 O2 Del Method Room Air 08/03/23 14:40 BMI result Body Mass Index 23.2 Const: Other: Constitutional : Awake, interactive, not in distress Neck : Normal inspection, Supple Cardiovascular : RRR, no JVP, +2 lower extremity edema Respiratory : good bilateral air entry, no crackles, wheezes or rhonchi Gastrointestinal: soft, lax, Normal bowel sounds, Non tender, no ascites Skin : Warm, Dry Neurological : Alert & oriented x3, No focal deficit Results Labs 08/03/23 15:02 08/03/23 15:01 Labs: Laboratory Results - last 24 hr 08/03/23 08/03/23 08/03/23 15:01 15:02 17:24 MCV 101.6 H MCH 35.1 H MCHC 34.6 RDW 17.7 H Plt Count 45 L MPV 11.8 Immature Gran % (Auto) 0.6 H Neut % (Auto) 66.6 Lymph % (Auto) 18.7 L [place] % (Auto) 12.2 H Eos % (Auto) 1.5 Baso % (Auto) 0.4 Lymph # (Auto) 0.9 L [place] # (Auto) 0.6 Eos # (Auto) 0.1 Baso # (Auto) 0.0 Abs Immat Gran (auto) 0.03 Absolute Neuts (auto) 3.2 Absolute Nucleated RBC 0.000 Nucleated RBC % (auto) 0.0 PT 21.4 H D INR 1.8 H APTT 36.7 H Anion Gap 10 L Estim Creat Clear Calc 124.9 Estimated GFR > 60 Random Glucose 114 Calcium 8.8 Total Bilirubin 2.8 H Direct Bilirubin 1.1 H AST 40 H ALT 11 Alkaline Phosphatase 91 B-Natriuretic Peptide 362 H Total Protein 7.6 Albumin 2.5 L Lipase 45 Ethyl Alcohol 69 Influenza Type A (PCR) NEGATIVE Influenza Type B (PCR) NEGATIVE RSV RNA Qual (PCR) NEGATIVE SARS-CoV-2 RNA (RT-PCR) NEGATIVE Crossmatch See Detail Imaging Radiologist's Impressions: Impressions Chest X-Ray 08/03/23 15:25 IMPRESSION: Given the history findings would be most consistent with CHF. Small bilateral effusions Assessment and Plan (1) Edema: Status: Acute (2) CHF (congestive heart failure): Status: Acute (3) Anemia: Status: Acute (4) Alcohol withdrawal syndrome: Status: Acute (5) Acute on chronic blood loss anemia: Status: Acute Plan A 53 years old male with PMH of Alcoholism, chronic liver disease, CHF among others who presents to the hospital by EMS for nose bleed and LE edema. Symptomatic anemia 2/2 acute on chronic blood loss could be 2/2 GI or epistaxis loss Hb 6.5, transfusing 1 unit check iron profile occult stool GI eval monitor for epistaxis Elevated INR At 1.8 give Vit K given bleeding Alcoholic liver disease w hx of withdrawal actively drinking beer and fireballs started Phenobarbital protocol Folic acid and Thiamin replacement acute hypomagnesemia Mg of 1.4 give replacement and follow level acute dCHF exacerbation Elevated BNP, CXR showing edema Lasix IV monitor I\O Elevated Total protein:Albumen Hypoalbumenemia Check Immunofixation and electropheresis chronic thrombocytopenia 2\2 alcoholism DVT PPx SCDs Patiet will likely need >2 night for evaluation of above problems pending safe discharge plan Time Spent With Patient Time: Total time managing care of this patient today ____ minutes. Quality Stroke Does the patient have a stroke diagnosis?: No VTE Prior VTE?: No VTE Risk Level:: Medical - moderate - high VTE Device Contraindication: N/A - Device Ordered VTE Drug Contraindication: Treatment Not Indicated
[2023-08-03] MEDS: Albumin Human 25 % 100 ML IV ×2 (18:05→19:02)
[2023-08-03 18:10] LABS: Appearance Urine Clear; Color Urine Yellow; Glucose Urine UA Negative (Negative); Leukocyte Esterase Urine Negative (Negative); Nitrite Urine Negative (Negative); Specific Gravity - Urine <= 1.005 (1.005-1.025); Urine Blood Negative (Negative); Urine Ketones Negative (Negative); Urine Protein Negative (Neg-Trace)
[2023-08-03 18:11] LABS: Magnesium 1.4 mg/dL (1.6-2.6)
[2023-08-03 18:14] LABS: OBS Int Ctl Valid YES; OBS1 NEGATIVE (NEGATIVE)
[2023-08-03 18:47] LABS: Iron 114 mcg/dL (45-160); Percent Iron Saturation 82 % (15-50); Total Iron Binding Capacity 139 mcg/dL (228-428); Unsaturated Iron Binding < 25 ug/dL
[2023-08-03] MEDS: Pantoprazole Sodium 40 MG/10 ML VIAL IVPUSH (19:01)
[2023-08-03] MEDS: Phytonadione (Vit K1) Oral 10 MG/ML AMPUL PO (19:19)
[2023-08-03] MEDS: Magnesium Sulfate/H2O 2 GM/50 ML PIGGYBACK IV ×2 (19:22→21:49)
[2023-08-03] MEDS: PHENobarbitaL sodium 130 MG/ML VIAL IM Q3Hx2 228.8 MG IM ×2 (19:24→21:46)
[2023-08-03 19:44] VITALS: BP 112/63; PULSE 109; RESP 18; TEMP 37.6; O2SAT 96
--- NOTE | 2023-08-03 20:19 | PC.NURSE ---
Patient alert and oriented x 3. forgetful. on phenobarb taper. Magnesium is being replaced. 2 iv angio's both forearms. 2 x albumin given. tele: sinus tachycardia 100-110's. Patient denies any pain. Patient voids in urinal. Called to give report to S3 nurse awaiting a call back. might have to bring patient up and give bedside report.
--- NOTE | 2023-08-03 20:57 | P.CNGI_ITS ---
History of Present Illness Data of Consult Service Date: 08/03/23 Requesting physician: Emily Lawrence Primary Care Provider: Unknown Physician HPI Reason for consult: anemia 53 years old male with PMH of Alcoholism, chronic liver disease, CHF who I am seeing for assessment for Anemia Patient was bought to [facility] by EMS after being found on the roadside with self limited nose bleed and intoxication. He had labs done [facility] revealed acute on chronic anemia with HGB 6 with macrocytosis and low plts, raised INR. Denies any fever, chills, chest pain, abdominal pain, nausea, vomiting or diarrhea but reports fatigue and exertional dyspnea-. denies any change in stool color or bleeding per rectum, hematuria He has never had EGD or colonoscopy Imaging with possible cirrhosis or steatosis Review of Systems 2 Review of Systems: Constitutional : No Weight loss, No Fever, No Chills ENT/Mouth : No sore throat, No Rhinorrhea Eyes: No Swelling, No Redness Cardiovascular : No Chest Pain, No SOB, No Edema Respiratory : No Cough, No Sputum, No Wheezing Gastrointestinal : see HPI Genitourinary : NO Dysuria, No Urinary Frequency, No Hematuria, No Urgency Musculoskeletal : No joint pain, No Myalgias, No Joint Swelling Skin : No Skin Lesions, No rash Neuro : + Weakness, No Numbness, No Dizziness, No Headache Psych : No Anxiety/Panic, No Depression Heme/Lymph: No Bruising, No Lymphadenopathy Endocrine : No Polyuria, No Polydipsia All other systems reviewed and are negative. [facility] Past Medical History Medical History Cirrhosis Thrombocytopenia Alcoholic liver disease Acute on chronic anemia CHF (congestive heart failure) Anemia Alcohol abuse Family History Pertinent family history: FH alcoholism, sister from alcohol use Surgical History Surgical History No history of previous surgery Social History Social History Household Members: Other Household Members Other:: pt homeless Housing: Homeless Housing Other:: homeless Do you presently have visiting nurse or other home services: No Alcohol intake: current Alcohol intake frequency: 3 or more drinks per day Alcohol type: beer and hard liquor Patient Tobacco Use Status: Former Tobacco user Quit Date: 12 years ago Tobacco use type: Cigarette Second Hand Smoke Exposure: No Advance Directives Date on File: 07/13/23 service: No Meds Allergies Allergy/AdvReac Type Severity Reaction Status Date / Time No Known Allergies Allergy Verified 06/24/23 18:44 [No Known Allergies*] Active Medications: Current Medications Folic Acid (Folic Acid 1 Mg Tablet) 1 mg PO DAILY [facility] Furosemide (Furosemide 40 Mg/4 Ml Vial) 40 mg IVPUSH DAILY [facility]; Protocol Ondansetron HCl (Ondansetron Hcl 4 Mg/2 Ml Vial) 4 mg IVPUSH Q8H PRN PRN Reason: Nausea and Vomiting Pantoprazole Sodium (Pantoprazole Sodium 40 Mg/10 Ml Vial) 40 mg IVPUSH BID@0630,1630 [facility] Last Admin: 08/03/23 19:01 Dose: 40 mg Pharmacy Consult (Consult Rx Etoh Phenob Im/Po) 1 each MISCELLANE ONCE PRN; Protocol PRN Reason: Consult order Phenobarbital (Phenobarbital 15 Mg Tablet) 45 mg PO BID JOSE MANUEL Stop: 08/05/23 21:01 Phenobarbital (Phenobarbital 15 Mg Tablet) 15 mg PO BID [facility]; Protocol Stop: 08/07/23 21:01 Phenobarbital (Phenobarbital 15 Mg Tablet) 15 mg PO DAILY [facility]; Protocol Stop: 08/09/23 09:01 Phenobarbital Sodium (Phenobarbital Sodium 130 Mg/Ml Vial Im Q3hx2) 228.8 mg IM Q3H JOSE MANUEL; Protocol Stop: 08/03/23 22:01 Last Admin: 08/03/23 19:24 Dose: 228.8 mg Sodium Chloride (0.9 % Sodium Chloride Flush 3 Ml Syringe) 3 ml IVFLUSH QSHIFT [facility] Thiamine HCl (Thiamine Hcl 100 Mg Tablet) 100 mg PO DAILY [facility] Home Medications Medication Instructions Recorded Confirmed Last Taken Type acetaminophen 325 mg tablet 650 mg PO Q6H PRN Headache 06/08/23 08/03/23 Unknown History Physical Exam 2 Vital Signs: Vital Signs: Last Vital Signs Temp 99.6 F 08/03/23 19:44 Pulse 109 H 08/03/23 19:44 Resp 18 08/03/23 19:44 BP 112/63 08/03/23 19:44 Pulse Ox 96 08/03/23 19:44 O2 Del Method Nasal Cannula 08/03/23 19:44 O2 Flow Rate 2 08/03/23 19:44 BMI result Body Mass Index 23.2 EXAM: GENERAL: The patient is well developed and nontoxic. VITAL SIGNS:see workflow HEENT: Nonicteric sclerae, PERRLA, EOMI. Oropharynx clear. Moist mucous membranes. Conjunctivae appear well perfused. No thyroid mass. CHEST: Chest wall is nontender. HEART: Regular rate and rhythm without murmurs. LUNGS: Clear to auscultation bilaterally. ABDOMEN: Soft, positive bowel sounds, nontender, no organomegaly.no flank tenderness SKIN: No rash, no excessive bruising, petechiae, or purpura. NEUROLOGIC: Cranial nerves II-XII intact without motor/sensory deficit. Psych: Appearance: disheveled Results Labs 08/03/23 15:02 08/03/23 15:01 Labs: Short CBC 08/03/23 Range/Units 15:02 WBC 4.8 (4.8-10.8) X10*3/uL Hgb 6.5 L* (14.0-18.0) g/dl Hct 18.8 L* (42.0-52.0) % Plt Count 45 L (160-400) X10*3/uL BMP 08/03/23 15:01 Sodium 136 Potassium 3.8 Chloride 109 H Carbon Dioxide 21 L BUN 9 Creatinine 0.61 Calcium 8.8 Liver Function 08/03/23 Range/Units 15:01 Total Bilirubin 2.8 H (0.0-1.0) mg/dL Direct Bilirubin 1.1 H (0.0-0.5) mg/dL AST 40 H (5-37) U/L ALT 11 (0-40) U/L Alkaline Phosphatase 91 (39-117) U/L Albumin 2.5 L (3.5-5.0) g/dL Urine 08/03/23 Range/Units 18:01 Urine Color Yellow Urine Appearance Clear Urine pH 7.0 (5.0-9.0) Ur Specific [place] <= 1.005 (1.005-1.025) Urine Protein Negative (Neg-Trace) mg/dL Urine Glucose (UA) Negative (Negative) mg/dL Assessment and Plan (1) Anemia: Status: Acute (2) Malnutrition: Status: Acute Plan 1/ Acute on chronic anemia, possibly worse from nose bleeds, may also be due to malnutrition, liver disease, obscure GIB, hemodynamically stable PLAN: 1/ Will consider in patient EGD/[place] vs o/p depending on clincial course and alcohol withdrawal symptoms 2/ check celiac serology, myeloma screen, zinc, thiamine 3/ check folic acid, b12, levels , Hep B, C Time Spent With Patient Time: Total time managing care of this patient today ____ minutes. Procedures Date of Service Date of Service: 08/03/23
[2023-08-03 21:11] VITALS: BMI 23.5
[2023-08-03] MEDS: 0.9 % Sodium Chloride Flush 3 ML SYRINGE IVFLUSH (21:44)
[2023-08-04] VITALS (12 sets, daily range): BP systolic 90–124; BP diastolic 51–68; PULSE 92–100; RESP 18–20; TEMP 36.3–37.3; O2SAT 90–100
[2023-08-04] MEDS: Pantoprazole Sodium 40 MG/10 ML VIAL IVPUSH ×2 (06:05→17:24)
[2023-08-04 06:43] LABS: Hemoglobin 7.3 g/dl (14.0-18.0); Mean Corpuscular HGB Conc 33.2 g/dl (31.0-36.0); Mean Corpuscular Hemoglobin 34.1 pg (27.0-33.0); Mean Corpuscular Volume 102.8 fL (80.0-98.0); Mean Platelet Volume 12.6 fL (9.4-12.4); Red Blood Count 2.14 X10*6/uL (4.60-5.80); Red Cell Distribution Width 18.1 % (11.0-16.0); White Blood Count 4.2 X10*3/uL (4.8-10.8)
[2023-08-04 06:48] LABS: Platelet Count 41 X10*3/uL (160-400)
[2023-08-04 06:49] LABS: Magnesium 1.9 mg/dL (1.6-2.6)
[2023-08-04 09:08] LABS: HBS Num1 0.64 mIU/mL (0-7.99); HBc Num1 0.33 S/CO (0.00-0.79); HBsAGNum1 0.61 S/CO (0.00-0.99); Hepatitis B Core Antibody Nonreactive (Nonreactive); Hepatitis B Surface Antigen Negative (Negative); ~HepC Num1 0.21 S/CO (0.00-0.79); ~Hepatitis A Antibody IgM Nonreactive (Nonreactive); ~Hepatitis B Surface Antibody NONREACTIVE (Nonreactive); ~Hepatitis C Antibody Nonreactive (Nonreactive)
[2023-08-04] MEDS: 0.9 % Sodium Chloride Flush 3 ML SYRINGE IVFLUSH ×3 (09:28→20:58)
[2023-08-04] MEDS: Folic Acid 1 MG TABLET PO (09:28)
[2023-08-04] MEDS: Thiamine HCL 100 MG TABLET PO (09:28)
[2023-08-04] MEDS: PHENobarbitaL 15 MG TABLET 45 MG PO ×2 (09:28→20:57)
[2023-08-04] MEDS: Furosemide 40 MG/4 ML VIAL IVPUSH ×2 (09:29→17:25)
[2023-08-04 11:27] LABS: Folate > 20.0 ng/mL (> or = 4.0); Vitamin B12 1003 pg/mL (200-900)
--- NOTE | 2023-08-04 12:24 | MHC.CM.PN ---
with interpertator pt states he is homeless lives on the streets rehab was offered which he has refused pt not eligible for vna pt to be dcd to the streets
--- NOTE | 2023-08-04 12:44 | HO.PM.IMPN ---
Subjective Subjective Date of Service: 08/04/23 Interval History: Seen and evaluated Feels better Hb still low at 7.3, requriing transfusion Review of Systems Review of Systems: Yes all other systems are reviewed and are negative Physical Exam Vital Signs: Vital Signs: Last Vital Signs Temp 98.1 F 08/04/23 10:50 Pulse 95 08/04/23 10:50 Resp 18 08/04/23 10:50 BP 112/58 L 08/04/23 10:50 Pulse Ox 100 08/04/23 00:58 O2 Del Method Nasal Cannula 08/04/23 00:58 O2 Flow Rate 2 08/04/23 00:58 BMI result Body Mass Index 23.5 Const: Other: Constitutional : Awake, interactive, not in distress Neck : Normal inspection, Supple Cardiovascular : RRR, no JVP, +2 lower extremity edema Respiratory : good bilateral air entry, no crackles, wheezes or rhonchi Gastrointestinal: soft, lax, Normal bowel sounds, Non tender, no ascites Skin : Warm, Dry Neurological : Alert & oriented x3, No focal deficit Objective Data Active Medications Folic Acid (Folic Acid 1 Mg Tablet) 1 mg PO DAILY [facility] Last Admin: 08/04/23 09:28 Dose: 1 mg Documented By: VANESA Furosemide (Furosemide 40 Mg/4 Ml Vial) 40 mg IVPUSH DAILY [facility]; Protocol Last Admin: 08/04/23 09:29 Dose: 40 mg Documented By: VANESA Ondansetron HCl (Ondansetron Hcl 4 Mg/2 Ml Vial) 4 mg IVPUSH Q8H PRN PRN Reason: Nausea and Vomiting Pantoprazole Sodium (Pantoprazole Sodium 40 Mg/10 Ml Vial) 40 mg IVPUSH BID@0630,1630 [facility] Last Admin: 08/04/23 06:05 Dose: 40 mg Documented By: NAZARIO Pharmacy Consult (Consult Rx Etoh Phenob Im/Po) 1 each MISCELLANE ONCE PRN; Protocol PRN Reason: Consult order Phenobarbital (Phenobarbital 15 Mg Tablet) 45 mg PO BID [facility] Stop: 08/05/23 21:01 Last Admin: 08/04/23 09:28 Dose: 45 mg Documented By: VANESA Phenobarbital (Phenobarbital 15 Mg Tablet) 15 mg PO BID [facility]; Protocol Stop: 08/07/23 21:01 Phenobarbital (Phenobarbital 15 Mg Tablet) 15 mg PO DAILY [facility]; Protocol Stop: 08/09/23 09:01 Sodium Chloride (0.9 % Sodium Chloride Flush 3 Ml Syringe) 3 ml IVFLUSH QSHIFT [facility] Last Admin: 08/04/23 09:28 Dose: 3 ml Documented By: VANESA Thiamine HCl (Thiamine Hcl 100 Mg Tablet) 100 mg PO DAILY [facility] Last Admin: 08/04/23 09:28 Dose: 100 mg Documented By: VANESA Labs 08/04/23 06:02 08/03/23 15:01 Labs: Laboratory Results - last 24 hr 08/03/23 08/03/23 08/03/23 15:01 15:02 17:24 MCV 101.6 H MCH 35.1 H MCHC 34.6 RDW 17.7 H Plt Count 45 L MPV 11.8 Immature Gran % (Auto) 0.6 H Neut % (Auto) 66.6 Lymph % (Auto) 18.7 L [place] % (Auto) 12.2 H Eos % (Auto) 1.5 Baso % (Auto) 0.4 Lymph # (Auto) 0.9 L [place] # (Auto) 0.6 Eos # (Auto) 0.1 Baso # (Auto) 0.0 Abs Immat Gran (auto) 0.03 Absolute Neuts (auto) 3.2 Absolute Nucleated RBC 0.000 Nucleated RBC % (auto) 0.0 PT 21.4 H D INR 1.8 H APTT 36.7 H Anion Gap 10 L Estim Creat Clear Calc 124.9 Estimated GFR > 60 Random Glucose 114 Calcium 8.8 Magnesium 1.4 L* Iron 114 TIBC 139 L % Saturation 82 H Unsat Iron Binding < 25 Total Bilirubin 2.8 H Direct Bilirubin 1.1 H AST 40 H ALT 11 Alkaline Phosphatase 91 B-Natriuretic Peptide 362 H Total Protein 7.6 Albumin 2.5 L Lipase 45 Vitamin B12 Folate Urine Color Urine Appearance Urine pH Ur Specific [place] Urine Protein Urine Glucose (UA) Urine Ketones Urine Blood Urine Nitrite Ur Leukocyte Esterase Stool Occult Blood Ethyl Alcohol 69 Hepatitis A IgM Ab Hep Bs Antigen Hep Bs Antibody Hep B Core Total Ab Hepatitis C Ab (EIA) Influenza Type A (PCR) NEGATIVE Influenza Type B (PCR) NEGATIVE RSV RNA Qual (PCR) NEGATIVE SARS-CoV-2 RNA (RT-PCR) NEGATIVE Blood Type B Positive Antibody Screen NEGATIVE Crossmatch See Detail 08/03/23 08/04/23 08/04/23 18:01 06:02 08:22 MCV 102.8 H MCH 34.1 H MCHC 33.2 RDW 18.1 H Plt Count 41 L MPV 12.6 H Immature Gran % (Auto) Neut % (Auto) Lymph % (Auto) [place] % (Auto) Eos % (Auto) Baso % (Auto) Lymph # (Auto) [place] # (Auto) Eos # (Auto) Baso # (Auto) Abs Immat Gran (auto) Absolute Neuts (auto) Absolute Nucleated RBC 0.000 Nucleated RBC % (auto) 0.0 PT INR APTT Anion Gap Estim Creat Clear Calc Estimated GFR Random Glucose Calcium Magnesium 1.9 Iron TIBC % Saturation Unsat Iron Binding Total Bilirubin Direct Bilirubin AST ALT Alkaline Phosphatase B-Natriuretic Peptide Total Protein Albumin Lipase Vitamin B12 Folate Urine Color Yellow Urine Appearance Clear Urine pH 7.0 Ur Specific [place] <= 1.005 Urine Protein Negative Urine Glucose (UA) Negative Urine Ketones Negative Urine Blood Negative Urine Nitrite Negative Ur Leukocyte Esterase Negative Stool Occult Blood NEGATIVE Ethyl Alcohol Hepatitis A IgM Ab Nonreactive Hep Bs Antigen Negative Hep Bs Antibody NONREACTIVE Hep B Core Total Ab Nonreactive Hepatitis C Ab (EIA) Nonreactive Influenza Type A (PCR) Influenza Type B (PCR) RSV RNA Qual (PCR) SARS-CoV-2 RNA (RT-PCR) Blood Type Antibody Screen Crossmatch 08/04/23 10:12 MCV MCH MCHC RDW Plt Count MPV Immature Gran % (Auto) Neut % (Auto) Lymph % (Auto) [place] % (Auto) Eos % (Auto) Baso % (Auto) Lymph # (Auto) [place] # (Auto) Eos # (Auto) Baso # (Auto) Abs Immat Gran (auto) Absolute Neuts (auto) Absolute Nucleated RBC Nucleated RBC % (auto) PT INR APTT Anion Gap Estim Creat Clear Calc Estimated GFR Random Glucose Calcium Magnesium Iron TIBC % Saturation Unsat Iron Binding Total Bilirubin Direct Bilirubin AST ALT Alkaline Phosphatase B-Natriuretic Peptide Total Protein Albumin Lipase Vitamin B12 1003 H Folate > 20.0 Urine Color Urine Appearance Urine pH Ur Specific [place] Urine Protein Urine Glucose (UA) Urine Ketones Urine Blood Urine Nitrite Ur Leukocyte Esterase Stool Occult Blood Ethyl Alcohol Hepatitis A IgM Ab Hep Bs Antigen Hep Bs Antibody Hep B Core Total Ab Hepatitis C Ab (EIA) Influenza Type A (PCR) Influenza Type B (PCR) RSV RNA Qual (PCR) SARS-CoV-2 RNA (RT-PCR) Blood Type Antibody Screen Crossmatch Assessment and Plan (1) Acute on chronic blood loss anemia: Status: Acute (2) CHF (congestive heart failure): Status: Acute (3) Hypomagnesemia: Status: Acute Plan A 53 years old male with PMH of Alcoholism, chronic liver disease, CHF among others who presents to the hospital by EMS for nose bleed and LE edema. Symptomatic anemia 2/2 acute on chronic blood loss could be 2/2 GI or epistaxis loss and alcoholism, reporting epsitaxis once overnight Hb 7.3, transfusing 2nd unit ok iron profile -ve occult stool GI eval , blood work, possible EGD if he bleeds again, monitor check folate, thiamin, B12 and Zinc monitor for epistaxis Elevated INR At 1.8 given Vit K Alcoholic liver disease w hx of withdrawal actively drinking beer and fireballs Continue Phenobarbital protocol Folic acid and Thiamin replacement acute hypomagnesemia given replacement acute dCHF exacerbation Elevated BNP, CXR showing edema Lasix IV monitor I\O Elevated Total protein:Albumen Hypoalbumenemia Pending Immunofixation and electropheresis chronic thrombocytopenia 2\2 alcoholism DVT PPx SCDs Patiet will likely need overnight for evaluation of above problems pending safe discharge plan Time Spent With Patient Time: Total time managing care of this patient today ____ minutes. Quality Stroke Does the patient have a stroke diagnosis?: No VTE Prior VTE?: No VTE Risk Level:: Medical - moderate - high VTE Device Contraindication: N/A - Device Ordered VTE Drug Contraindication: Treatment Not Indicated
--- NOTE | 2023-08-04 13:33 | MHC.RECOVSUP ---
Met with pt in 354 to provide recovery resources. Pt informs he does not need any recovery assistance at this time.
--- NOTE | 2023-08-04 16:30 | P.EN_ITS ---
Event Note Date of Service: 08/04/23 Event Note: Addiction consult placed Patient seen by Recovery Information Security Associate--declined interview Time Spent With Patient Time: Total time managing care of this patient today ____ minutes.
[2023-08-05] VITALS (9 sets, daily range): BP systolic 90–118; BP diastolic 53–56; PULSE 90–108; RESP 18–20; TEMP 36.6–39; O2SAT 90–95
[2023-08-05] MEDS: Pantoprazole Sodium 40 MG/10 ML VIAL IVPUSH ×2 (05:30→15:25)
[2023-08-05 06:44] LABS: Hematocrit 25.5 % (42.0-52.0); Hemoglobin 8.6 g/dl (14.0-18.0); Mean Corpuscular HGB Conc 33.7 g/dl (31.0-36.0); Mean Corpuscular Hemoglobin 33.9 pg (27.0-33.0); Mean Corpuscular Volume 100.4 fL (80.0-98.0); Mean Platelet Volume 12.9 fL (9.4-12.4); Platelet Count 40 X10*3/uL (160-400); Red Blood Count 2.54 X10*6/uL (4.60-5.80); Red Cell Distribution Width 18.9 % (11.0-16.0); White Blood Count 7.2 X10*3/uL (4.8-10.8)
[2023-08-05 06:59] LABS: Alanine Aminotransferase 10 U/L (0-40); Albumin Level 2.7 g/dL (3.5-5.0); Alkaline Phosphatase 72 U/L (39-117); Aspartate Amino Transferase 41 U/L (5-37); Bilirubin Direct 1.3 mg/dL (0.0-0.5); Bilirubin Total 5.2 mg/dL (0.0-1.0); Total Protein 7.3 g/dL (6.5-8.0)
[2023-08-05 07:07] LABS: B Type Natriuretic Peptide 539 pg/mL (<100)
[2023-08-05] MEDS: 0.9 % Sodium Chloride Flush 3 ML SYRINGE IVFLUSH ×3 (08:14→19:47)
[2023-08-05] MEDS: Furosemide 40 MG/4 ML VIAL IVPUSH (08:14)
[2023-08-05] MEDS: Folic Acid 1 MG TABLET PO (08:15)
[2023-08-05] MEDS: PHENobarbitaL 15 MG TABLET 45 MG PO ×2 (08:15→19:47)
[2023-08-05] MEDS: Thiamine HCL 100 MG TABLET PO (08:15)
--- NOTE | 2023-08-05 11:48 | P.PNIM_ITS ---
Subjective Subjective Date of Service: 08/05/23 Interval History: Seen and evaluated spiked fever with increase couging still swollen in lower extremities no reported bleeding or epistaxis Hb improved Review of Systems Review of Systems: Yes all other systems are reviewed and are negative Physical Exam 2 Vital Signs: Vital Signs: Last Vital Signs Temp 98.9 F 08/05/23 09:49 Pulse 100 08/05/23 07:28 Resp 20 08/05/23 07:28 BP 118/56 L 08/05/23 07:28 Pulse Ox 94 08/05/23 09:45 O2 Del Method Nasal Cannula 08/05/23 09:45 O2 Flow Rate 2 08/05/23 09:45 BMI result Body Mass Index 23.5 Const: Other: Constitutional : Awake, interactive, not in distress Neck : Normal inspection, Supple Cardiovascular : RRR, no JVP, +2 lower extremity edema Respiratory : good bilateral air entry, no crackles, wheezes or rhonchi Gastrointestinal: soft, lax, Normal bowel sounds, Non tender, no ascites Skin : Warm, Dry Neurological : Alert & oriented x3, No focal deficit Objective Data Active Medications Folic Acid (Folic Acid 1 Mg Tablet) 1 mg PO DAILY [facility] Last Admin: 08/05/23 08:15 Dose: 1 mg Documented By: VANESA Furosemide (Furosemide 40 Mg/4 Ml Vial) 40 mg IVPUSH BID@0900,1800 [facility]; Protocol Last Admin: 08/05/23 08:14 Dose: 40 mg Documented By: VANESA Piperacillin Sod/Tazobactam (Sod 3.375 gm/ Sodium Chloride) 50 mls @ 100 mls/hr IV Q6H [facility] Ondansetron HCl (Ondansetron Hcl 4 Mg/2 Ml Vial) 4 mg IVPUSH Q8H PRN PRN Reason: Nausea and Vomiting Pantoprazole Sodium (Pantoprazole Sodium 40 Mg/10 Ml Vial) 40 mg IVPUSH BID@0630,1630 [facility] Last Admin: 08/05/23 05:30 Dose: 40 mg Documented By: WING Pharmacy Consult (Consult Rx Etoh Phenob Im/Po) 1 each MISCELLANE ONCE PRN; Protocol PRN Reason: Consult order Phenobarbital (Phenobarbital 15 Mg Tablet) 45 mg PO BID [facility] Stop: 08/05/23 21:01 Last Admin: 08/05/23 08:15 Dose: 45 mg Documented By: VANESA Phenobarbital (Phenobarbital 15 Mg Tablet) 15 mg PO BID [facility]; Protocol Stop: 08/07/23 21:01 Phenobarbital (Phenobarbital 15 Mg Tablet) 15 mg PO DAILY [facility]; Protocol Stop: 08/09/23 09:01 Sodium Chloride (0.9 % Sodium Chloride Flush 3 Ml Syringe) 3 ml IVFLUSH QSHIFT [facility] Last Admin: 08/05/23 08:14 Dose: 3 ml Documented By: VANESA Thiamine HCl (Thiamine Hcl 100 Mg Tablet) 100 mg PO DAILY [facility] Last Admin: 08/05/23 08:15 Dose: 100 mg Documented By: VANESA Labs 08/05/23 05:57 08/03/23 15:01 Labs: Laboratory Results - last 24 hr 08/03/23 08/05/23 17:24 05:57 MCV 100.4 H MCH 33.9 H MCHC 33.7 RDW 18.9 H Plt Count 40 L MPV 12.9 H Absolute Nucleated RBC 0.000 Nucleated RBC % (auto) 0.0 Total Bilirubin 5.2 H Direct Bilirubin 1.3 H AST 41 H ALT 10 Alkaline Phosphatase 72 B-Natriuretic Peptide 539 H Total Protein 7.3 Albumin 2.7 L Crossmatch See Detail Assessment and Plan (1) Hypomagnesemia: Status: Acute (2) Malnutrition: Status: Acute (3) Acute on chronic blood loss anemia: Status: Acute (4) CHF (congestive heart failure): Status: Acute Plan A 53 years old male with PMH of Alcoholism, chronic liver disease, CHF among others who presents to the hospital by EMS for nose bleed and LE edema. Pneumonia likely result of atelactasis, possible aspiration not septic start Lori\Ceftriaxone monitor clinical response acute dCHF exacerbation Elevated BNP, CXR showing edema Lasix IV monitor I\O Symptomatic anemia 2/2 acute on chronic blood loss could be 2/2 GI or epistaxis loss and alcoholism, reporting epsitaxis once overnight Hb 8.6 after 2 units transfusion -ve occult stool GI eval , blood work, hold on EGD with negative occult check folate, thiamin, B12 and Zinc monitor for epistaxis Elevated INR At 1.8 given Vit K Alcoholic liver disease w hx of withdrawal actively drinking beer and fireballs Continue Phenobarbital protocol Folic acid and Thiamin replacement acute hypomagnesemia given replacement Elevated Total protein:Albumen Hypoalbumenemia Pending Immunofixation and electropheresis chronic thrombocytopenia 2\2 alcoholism DVT PPx SCDs Patiet will likely need overnight for pneumonia, anemia, chf exacerbation pending safe discharge plan Time Spent With Patient Time: Total time managing care of this patient today ____ minutes. Quality Stroke Does the patient have a stroke diagnosis?: No VTE Prior VTE?: No VTE Risk Level:: Medical - moderate - high VTE Device Contraindication: N/A - Device Ordered VTE Drug Contraindication: Treatment Not Indicated
[2023-08-05] MEDS: cefTRIAXone sodium 1 GM in 0.9 % Sodium Chloride 50 ML IV (12:40)
[2023-08-05] MEDS: Azithromycin 500 MG in 0.9 % Sodium Chloride 250 ML 125 MG IV (13:54)
[2023-08-05] MEDS: Acetaminophen 325 MG TABLET 650 MG PO (15:26)
[2023-08-06] VITALS (8 sets, daily range): BP systolic 95–147; BP diastolic 50–68; PULSE 68–111; RESP 16–20; TEMP 36.8–39.4; O2SAT 92–94
[2023-08-06] MEDS: Acetaminophen 325 MG TABLET 650 MG PO ×3 (01:44→17:40)
--- NOTE | 2023-08-06 01:50 | PC.NURSE ---
Temp =101.4 oral at 0150 with chills warm blanket provided prn Tylenol given, Dr. Hogan was updated.
[2023-08-06] MEDS: Pantoprazole Sodium 40 MG/10 ML VIAL IVPUSH (05:40)
[2023-08-06] MEDS: Furosemide 40 MG/4 ML VIAL IVPUSH (07:49)
[2023-08-06] MEDS: 0.9 % Sodium Chloride Flush 3 ML SYRINGE IVFLUSH ×3 (07:56→19:54)
[2023-08-06] MEDS: Thiamine HCL 100 MG TABLET PO (07:57)
[2023-08-06] MEDS: Folic Acid 1 MG TABLET PO (07:58)
[2023-08-06] MEDS: PHENobarbitaL 15 MG TABLET PO ×2 (07:58→21:12)
[2023-08-06 08:43] LABS: Hematocrit 24.9 % (42.0-52.0); Hemoglobin 8.6 g/dl (14.0-18.0); Mean Corpuscular HGB Conc 34.5 g/dl (31.0-36.0); Mean Corpuscular Hemoglobin 34.8 pg (27.0-33.0); Mean Corpuscular Volume 100.8 fL (80.0-98.0); Mean Platelet Volume 12.4 fL (9.4-12.4); Red Blood Count 2.47 X10*6/uL (4.60-5.80); White Blood Count 7.9 X10*3/uL (4.8-10.8)
[2023-08-06 08:45] LABS: Platelet Count 42 X10*3/uL (160-400)
[2023-08-06 09:00] LABS: Anion Gap 14 (12-20); Blood Urea Nitrogen 13 mg/dL (9-16); Calcium 8.6 mg/dL (8.4-10.2); Carbon Dioxide 22 mmol/L (22-29); Chloride 102 mmol/L (96-108); Creatinine Clr Calc Pharmacy 110.4; Estimated Glomerular Filt Rate > 60; Glucose Random 99 mg/dL (60-115); Potassium 2.9 mmol/L (3.3-5.1); Sodium 135 mmol/L (135-145)
[2023-08-06 09:18] LABS: B Type Natriuretic Peptide 331 pg/mL (<100)
[2023-08-06] MEDS: cefTRIAXone sodium 1 GM in 0.9 % Sodium Chloride 50 ML IV (11:01)
--- NOTE | 2023-08-06 11:58 | P.PNIM_ITS ---
Subjective Subjective Date of Service: 08/06/23 Interval History: Seen and evaluated More confused and agitated spiked fever with increase couging for last 24 hours decreased edema in lower extremities no reported bleeding or epistaxis Hb stable Review of Systems Review of Systems: Yes all other systems are reviewed and are negative Physical Exam 2 Vital Signs: Vital Signs: Last Vital Signs Temp 99.9 F 08/06/23 06:54 Pulse 68 08/06/23 06:54 Resp 17 08/06/23 06:54 BP 100/58 L 08/06/23 06:54 Pulse Ox 94 08/06/23 06:54 O2 Del Method Nasal Cannula 08/06/23 06:54 O2 Flow Rate 3 08/06/23 06:54 BMI result Body Mass Index 23.5 Const: Other: Constitutional : Awake, interactive, not in distress Neck : Normal inspection, Supple Cardiovascular : RRR, no JVP, +1 lower extremity edema Respiratory : good bilateral air entry, basal fine RLU crackles Gastrointestinal: soft, lax, Normal bowel sounds, Non tender, no ascites Skin : Warm, Dry Neurological : Alert & oriented to self, No focal deficit Psych: Agitated , anxious Objective Data Active Medications Acetaminophen (Acetaminophen 325 Mg Tablet) 650 mg PO Q6H PRN PRN Reason: Fever >101 Last Admin: 08/06/23 07:57 Dose: 650 mg Documented By: VANESA Folic Acid (Folic Acid 1 Mg Tablet) 1 mg PO DAILY [facility] Last Admin: 08/06/23 07:58 Dose: 1 mg Documented By: VANESA Furosemide (Furosemide 40 Mg/4 Ml Vial) 40 mg IVPUSH DAILY [facility]; Protocol Azithromycin 500 mg/ Sodium (Chloride) 250 mls @ 125 mls/hr IV Q24H [facility] Last Infusion: 08/05/23 16:20 Dose: Infused Documented By: VANESA Ceftriaxone Sodium 1 gm/ (Sodium Chloride) 50 mls @ 100 mls/hr IV Q24H [facility] Last Infusion: 08/06/23 11:41 Dose: Infused Documented By: VANESA Omeprazole (Omeprazole 40 Mg Capsule.) 40 mg PO BID@0630,1630 [facility] Ondansetron HCl (Ondansetron Hcl 4 Mg/2 Ml Vial) 4 mg IVPUSH Q8H PRN PRN Reason: Nausea and Vomiting Pharmacy Consult (Consult Rx Etoh Phenob Im/Po) 1 each MISCELLANE ONCE PRN; Protocol PRN Reason: Consult order Phenobarbital (Phenobarbital 15 Mg Tablet) 15 mg PO BID [facility]; Protocol Stop: 08/07/23 21:01 Last Admin: 08/06/23 07:58 Dose: 15 mg Documented By: VANESA Phenobarbital (Phenobarbital 15 Mg Tablet) 15 mg PO DAILY [facility]; Protocol Stop: 08/09/23 09:01 Phenobarbital Sodium (Phenobarbital Sodium 130 Mg/Ml Vial) 130 mg IM ONCE PRN PRN Reason: Alcohol Withdrawal Sodium Chloride (0.9 % Sodium Chloride Flush 3 Ml Syringe) 3 ml IVFLUSH QSHIFT [facility] Last Admin: 08/06/23 07:56 Dose: 3 ml Documented By: VANESA Thiamine HCl (Thiamine Hcl 100 Mg Tablet) 100 mg PO DAILY [facility] Last Admin: 08/06/23 07:57 Dose: 100 mg Documented By: VANESA Labs 08/06/23 07:54 08/06/23 07:54 Labs: Laboratory Results - last 24 hr 08/05/23 08/06/23 15:35 07:54 MCV 100.8 H MCH 34.8 H MCHC 34.5 RDW 19.0 H Plt Count 42 L MPV 12.4 Absolute Nucleated RBC 0.000 Nucleated RBC % (auto) 0.0 Hold Purple Top SEE NOTE Anion Gap 14 Estim Creat Clear Calc 110.4 Estimated GFR > 60 Random Glucose 99 Lactic Acid 2.0 Calcium 8.6 B-Natriuretic Peptide 331 H Hold Green Top See Note Assessment and Plan (1) Hypomagnesemia: Status: Acute (2) Acute on chronic blood loss anemia: Status: Acute (3) Alcohol withdrawal syndrome: Status: Acute (4) CHF (congestive heart failure): Status: Acute (5) Sepsis: Status: Resolved (6) Pneumonia: Status: Inactive Plan A 53 years old male with PMH of Alcoholism, chronic liver disease, CHF among others who presents to the hospital by EMS for nose bleed and LE edema. Sepsis 2\2 Pneumonia likely result of atelactasis, possible aspiration continue Lori\Ceftriaxone pending cultures monitor clinical response acute dCHF exacerbation Elevated BNP, CXR showing edema continue Lasix IV monitor I\O Symptomatic anemia 2/2 acute on chronic blood loss could be 2/2 GI or epistaxis loss and alcoholism, reporting epsitaxis once overnight Hb 8.6 after 2 units transfusion -ve occult stool GI eval , blood work, hold on EGD with negative occult check folate, thiamin, B12 and Zinc monitor for epistaxis Elevated INR At 1.8 given Vit K Alcoholic liver disease w alcohol withdrawal actively drinking beer and fireballs CIWA of 11 Continue Phenobarbital protocol extra doses of Phenobarb as needed Folic acid and Thiamin replacement acute hypomagnesemia given replacement Elevated Total protein:Albumen Hypoalbumenemia Pending Immunofixation and electropheresis chronic thrombocytopenia 2\2 alcoholism DVT PPx SCDs Patiet will likely need overnight for pneumonia, anemia, chf exacerbation pending safe discharge plan Time Spent With Patient Time: Total time managing care of this patient today ____ minutes. Quality Stroke Does the patient have a stroke diagnosis?: No VTE Prior VTE?: No VTE Risk Level:: Medical - moderate - high VTE Device Contraindication: N/A - Device Ordered VTE Drug Contraindication: Treatment Not Indicated
[2023-08-06] MEDS: Azithromycin 500 MG in 0.9 % Sodium Chloride 250 ML 125 MG IV (12:13)
[2023-08-06] MEDS: PHENobarbitaL sodium 130 MG/ML VIAL IM (12:18)
[2023-08-06] MEDS: Omeprazole 40 MG CAPSULE.DR PO (17:40)
--- NOTE | 2023-08-06 18:01 | PC.NURSE ---
Pt with temp 102.7- Tylenol given and Dr Casiano notified. Also reported having loose stools today, will collect stool sample Pt very weak upon moving around in bed and getting oob to commode
[2023-08-06] MEDS: Piperacillin Sodium/Tazobactam 3.375 GM in 0.9 % Sodium Chloride 50 ML IV (18:45)
[2023-08-06 19:08] LABS: COVID-19 Test Negative (Negative); IDNOW Serial# 08D9AD1C
[2023-08-06] MEDS: vancomycin/NS 2,000 MG/500 ML PLAST..BAG 250 MG IV (20:37)
[2023-08-06] MEDS: Acetaminophen 1,000 MG/100 ML PIGGYBACK 400 MG IV (21:10)
[2023-08-07] VITALS (7 sets, daily range): BP systolic 90–104; BP diastolic 51–55; PULSE 86–101; RESP 18–22; TEMP 36.8–39.4; O2SAT 90–98
[2023-08-07] MEDS: Piperacillin Sodium/Tazobactam 3.375 GM in 0.9 % Sodium Chloride 50 ML IV (01:27)
[2023-08-07] MEDS: Acetaminophen 1,000 MG/100 ML PIGGYBACK 400 MG IV (03:19)
[2023-08-07] MEDS: Omeprazole 40 MG CAPSULE.DR PO ×2 (05:39→15:39)
[2023-08-07 06:03] LABS: CDiff Gene PCR INVALID (Negative)
[2023-08-07] MEDS: Acetaminophen 325 MG TABLET 650 MG PO ×2 (07:32→15:39)
[2023-08-07] MEDS: 0.9 % Sodium Chloride Flush 3 ML SYRINGE IVFLUSH ×2 (07:38→22:12)
[2023-08-07 08:16] LABS: Hemoglobin 8.2 g/dl (14.0-18.0); Mean Corpuscular HGB Conc 32.8 g/dl (31.0-36.0); Mean Corpuscular Hemoglobin 33.7 pg (27.0-33.0); Mean Corpuscular Volume 102.9 fL (80.0-98.0); Mean Platelet Volume 12.2 fL (9.4-12.4); Red Blood Count 2.43 X10*6/uL (4.60-5.80); White Blood Count 6.2 X10*3/uL (4.8-10.8)
[2023-08-07 08:20] LABS: Platelet Count 36 X10*3/uL (160-400)
[2023-08-07 08:30] LABS: Anion Gap 12 (12-20); Blood Urea Nitrogen 16 mg/dL (9-16); Calcium 8.4 mg/dL (8.4-10.2); Carbon Dioxide 22 mmol/L (22-29); Chloride 106 mmol/L (96-108); Creatinine Clr Calc Pharmacy 96.4; Estimated Glomerular Filt Rate > 60; Glucose Random 114 mg/dL (60-115); Potassium 2.6 mmol/L (3.3-5.1); Sodium 137 mmol/L (135-145)
[2023-08-07 08:46] LABS: Magnesium 1.2 mg/dL (1.6-2.6)
[2023-08-07] MEDS: vancomycin HCL 125 MG CAPSULE PO ×3 (08:48→22:11)
[2023-08-07] MEDS: Folic Acid 1 MG TABLET PO (08:48)
[2023-08-07] MEDS: Thiamine HCL 100 MG TABLET PO (08:48)
[2023-08-07] MEDS: PHENobarbitaL 15 MG TABLET PO ×2 (08:48→22:10)
[2023-08-07] MEDS: vancomycin HCL 1,250 MG in 0.9 % Sodium Chloride 250 ML 166.67 MG IV (10:08)
[2023-08-07] MEDS: Magnesium Sulfate/H2O 2 GM/50 ML PIGGYBACK IV (10:15)
[2023-08-07] MEDS: Magnesium Oxide 400 MG TABLET 800 MG PO (10:19)
--- NOTE | 2023-08-07 10:27 | P.CDIM_ITS ---
PROVIDER RESPONSE TEXT: To clarify, the appropriate diagnosis supported by the clinical indicators: Hypokalemia QUERY TEXT: PHYSICIAN'S DOCUMENTATION REQUEST Date of Query: 08/07/2023 07:31 AM EDT Patient Name: Charbel Delgado Admit Date: 08/03/2023 Dear Emily Lawrence, A review of the medical record indicates additional documentation may be needed. Please review below and update the documentation accordingly. Clinical Indicators: Potassium level on 08/06/23: 2.9 The following diagnoses or signs and symptoms were noted in the patient record: On Lasix 40 mg IVP daily Based on the above, could you clarify the appropriate diagnosis, if significant, that supports the ab ove abnormalities and additional evaluation, monitoring, and/or treatment rendered: Hypokalemia Labs indicate a diagnosis of (please specify) Other (explain)Clinically unable to determine (explain)Thank you, Marilu Torres RN Use of terms such as suspected, likely, concern for, or probable (associated with a specific diagnosi s that is being evaluated, monitored, or treated as if it exists) are acceptable and can be coded in the inpatient se tting, when documented at the time of discharge. Please use your independent medical judgment in providing your response. THIS QUERY IS PART OF THE PERMANENT MEDICAL RECORD
[2023-08-07] MEDS: iohexoL 350 MG/ML 100 ML INFUS..BTL IV (10:28)
[2023-08-07 10:49] LABS: CDiff Gene PCR POSITIVE (Negative)
[2023-08-07 11:18] LABS: CDiff Toxin Positive (Negative)
[2023-08-07 11:19] LABS: CDIFF Internal ctrl Dots and bkg OK (V)
[2023-08-07 11:30] LABS: Adenovirus F 40/41 Not Detected (Not Detect.); Astrovirus Not Detected (Not Detect.); Campylobacter Not Detected (Not Detect.); Cryptosporidium Not Detected (Not Detect.); Cyclospora cayetanensis Not Detected (Not Detect.); E. coli EAEC Not Detected (Not Detect.); E. coli EPEC Not Detected (Not Detect.); E. coli ETEC Not Detected (Not Detect.); E. coli STEC Not Detected (Not Detect.); Entamoeba histolytica Not Detected (Not Detect.); Giardia lamblia Not Detected (Not Detect.); Norovirus GI/GII Not Detected (Not Detect.); Plesiomonas shigelloides Not Detected (Not Detect.); Rotavirus A Not Detected (Not Detect.); Salmonella Not Detected (Not Detect.); Sapovirus Not Detected (Not Detect.); Shigella sp./EIEC Not Detected (Not Detect.); Vibrio Not Detected (Not Detect.); Vibrio Cholerae Not Detected (Not Detect.); Yersinia enterocolitica Not Detected (Not Detect.)
[2023-08-07 12:39] LABS: Prot Elec - Albumin 3.1 g/dL (3.8-4.8); Prot Elec - Alpha1 0.2 g/dL (0.2-0.3); Prot Elec - Alpha2 0.4 g/dL (0.5-0.9); Prot Elec - Beta 1 0.2 g/dL (0.4-0.6); Prot Elec - Beta 2 0.6 g/dL (0.2-0.5); Prot Elec - Total Protein 7.4 g/dL (6.1-8.1)
[2023-08-07 12:40] LABS: Adenovirus PCR Not Detected (Not Detect.); Bordetella parapertussis PCR Not Detected (Not Detect.); Bordetella pertussis PCR Not Detected (Not Detect.); Chlamydia pneumoniae PCR Not Detected (Not Detect.); Coronavirus 229E PCR Not Detected (Not Detect.); Coronavirus HKU1 PCR Not Detected (Not Detect.); Coronavirus NL63 PCR Not Detected (Not Detect.); Coronavirus OC43 PCR Not Detected (Not Detect.); Human metapneumovirus PCR Not Detected (Not Detect.); Influenza A PCR Not Detected (Not Detect.); Influenza B PCR Not Detected (Not Detect.); Mycoplasma pneumoniae PCR Not Detected (Not Detect.); Parainfluenza 1 PCR Not Detected (Not Detect.); Parainfluenza 2 PCR Not Detected (Not Detect.); Parainfluenza 3 PCR Not Detected (Not Detect.); Parainfluenza 4 PCR Not Detected (Not Detect.); RSV PCR Not Detected (Not Detect.); Rhino/Enterovirus PCR Not Detected (Not Detect.)
[2023-08-07 12:42] LABS: SARS-CoV-2 PCR Not Detected (Not Detect.)
--- NOTE | 2023-08-07 13:25 | HO.PM.IMPN ---
Subjective Subjective Date of Service: 08/07/23 Interval History: Seen and evaluated confused and lethargic Spiking fever all night still couging with decreased edema in lower extremities no reported bleeding or epistaxis Hb stable Review of Systems Review of Systems: Yes all other systems are reviewed and are negative Physical Exam Vital Signs: Vital Signs: Last Vital Signs Temp 100.5 F H 08/07/23 11:13 Pulse 86 08/07/23 11:13 Resp 18 08/07/23 11:13 BP 94/51 L 08/07/23 11:13 Pulse Ox 95 08/07/23 11:13 O2 Del Method Nasal Cannula 08/07/23 11:13 O2 Flow Rate 3 08/07/23 11:13 BMI result Body Mass Index 23.5 Const: Other: Constitutional : Awake, interactive, not in distress Neck : Normal inspection, Supple Cardiovascular : RRR, no JVP, +1 lower extremity edema Respiratory : good bilateral air entry, basal fine RLU crackles Gastrointestinal: soft, lax, Normal bowel sounds, LLQ tenderness on palpation Skin : Warm, Dry Neurological : Alert & oriented to self, No focal deficit Psych: Agitated , anxious Objective Data Active Medications Acetaminophen (Acetaminophen 325 Mg Tablet) 650 mg PO Q6H PRN PRN Reason: Fever >101 Last Admin: 08/07/23 07:32 Dose: 650 mg Documented By: JOCELYN Folic Acid (Folic Acid 1 Mg Tablet) 1 mg PO DAILY [facility] Last Admin: 08/07/23 08:48 Dose: 1 mg Documented By: JOCELYN Vancomycin HCl 1,250 mg/ (Sodium Chloride) 250 mls @ 166.667 mls/hr IV Q12H [facility] Last Infusion: 08/07/23 11:43 Dose: Infused Documented By: JOCELYN Magnesium Oxide (Magnesium Oxide 400 Mg Tablet) 800 mg PO DAILY [facility] Last Admin: 08/07/23 10:19 Dose: 800 mg Documented By: JOCELYN Omeprazole (Omeprazole 40 Mg Capsule.) 40 mg PO BID@0630,1630 [facility] Last Admin: 08/07/23 05:39 Dose: 40 mg Documented By: NAZARIO Ondansetron HCl (Ondansetron Hcl 4 Mg/2 Ml Vial) 4 mg IVPUSH Q8H PRN PRN Reason: Nausea and Vomiting Pharmacy Consult (Consult Rx Etoh Phenob Im/Po) 1 each MISCELLANE ONCE PRN; Protocol PRN Reason: Consult order Pharmacy Consult (Consult Rx Vancomycin Dosing) 1 each MISCELLANE DAILY PRN PRN Reason: Consult order Phenobarbital (Phenobarbital 15 Mg Tablet) 15 mg PO BID [facility]; Protocol Stop: 08/07/23 21:01 Last Admin: 08/07/23 08:48 Dose: 15 mg Documented By: JOCELYN Phenobarbital (Phenobarbital 15 Mg Tablet) 15 mg PO DAILY [facility]; Protocol Stop: 08/09/23 09:01 Phenobarbital Sodium (Phenobarbital Sodium 130 Mg/Ml Vial) 130 mg IM ONCE PRN PRN Reason: Alcohol Withdrawal Sodium Chloride (0.9 % Sodium Chloride Flush 3 Ml Syringe) 3 ml IVFLUSH QSHIFT [facility] Last Admin: 08/07/23 07:38 Dose: 3 ml Documented By: JOCELYN Thiamine HCl (Thiamine Hcl 100 Mg Tablet) 100 mg PO DAILY [facility] Last Admin: 08/07/23 08:48 Dose: 100 mg Documented By: JOCELYN Vancomycin HCl (Vancomycin Hcl 125 Mg Capsule) 125 mg PO Q6H [facility] Last Admin: 08/07/23 08:48 Dose: 125 mg Documented By: JOCELYN Labs 08/07/23 07:51 08/07/23 07:51 Labs: Laboratory Results - last 24 hr 08/04/23 08/06/23 08/07/23 06:02 18:30 02:30 MCV MCH MCHC RDW Plt Count MPV Absolute Nucleated RBC Nucleated RBC % (auto) Anion Gap Estim Creat Clear Calc Estimated GFR Random Glucose Calcium Magnesium Total Protein (PEP) 7.4 Albumin (PEP) 3.1 L Tfjgj-3-Qqgygrrqw 0.2 Mryae-8-Yzrooszxe 0.4 L Fdlx-3-Nwqluzlx 0.2 L Ktxd-9-Mgzeolle 0.6 H Gamma Globulins 3.0 H PEP Interpretation SEE NOTE Stl C. cayetanensis PCR Not Detected Stool Rotavirus A PCR Not Detected Stl Adenov F 40/41 PCR Not Detected Stool Astrovirus (PCR) Not Detected Stool Campylobacter PCR Not Detected Stool Cryptosporidium PCR Not Detected Stl Sh Tox Pr E STEC PCR Not Detected Stool E coli O157 PCR Not applicable Stl Enterotoxigenic E PCR Not Detected Stool EPEC (PCR) Not Detected Stool EAEC (PCR) Not Detected Stl E. histolytica PCR Not Detected Stool Giardia Lamblia PCR Not Detected Stl P. shigelloides PCR Not Detected Stool Salmonella PCR Not Detected Stool Sapovirus (PCR) Not Detected Stl Shigella/EIEC PCR Not Detected St Y.enterocolitica PCR Not Detected Stool Vibrio (PCR) Not Detected Stl Vibrio cholerae PCR Not Detected Stl Norovirus GI/GII PCR Not Detected Respiratory Panel Muhammad Adenovirus (Rapid PCR) B.pert (TEM-PCR) B.parapertussis DNA PCR C. pneumoniae DNA (PCR) C. difficile Tox B Gene INVALID C. difficile Toxin A&B C. difficile Interpret Coronavirus OC43 (PCR) Coronavirus HKU1 (PCR) Coronavirus 229E (PCR) COVID-19 (TAI) Negative COVID-19 Clin Com See Note Coronavirus NL63 (PCR) Human Metapneumovir PCR Influenza A (RT-PCR) Influenza B (RT-PCR) M. pneumoniae (PCR) Parainfluenza 1 (PCR) Parainfluenza 2 (PCR) Parainfluenza 3 (PCR) Parainfluenza 4 (PCR) RSV (PCR) Entero/Rhino (PCR) SARS-CoV-2 RNA (RT-PCR) 08/07/23 08/07/23 08/07/23 07:51 08:40 10:30 MCV 102.9 H MCH 33.7 H MCHC 32.8 RDW 19.0 H Plt Count 36 L MPV 12.2 Absolute Nucleated RBC 0.000 Nucleated RBC % (auto) 0.0 Anion Gap 12 Estim Creat Clear Calc 96.4 Estimated GFR > 60 Random Glucose 114 Calcium 8.4 Magnesium 1.2 L* Total Protein (PEP) Albumin (PEP) Wajjv-5-Kmhwcjetm Lskmc-8-Wbvhjbmlg Ceam-8-Jtqihkwp Mhry-8-Ltfhlxpd Gamma Globulins PEP Interpretation Stl C. cayetanensis PCR Stool Rotavirus A PCR Stl Adenov F 40/41 PCR Stool Astrovirus (PCR) Stool Campylobacter PCR Stool Cryptosporidium PCR Stl Sh Tox Pr E STEC PCR Stool E coli O157 PCR Stl Enterotoxigenic E PCR Stool EPEC (PCR) Stool EAEC (PCR) Stl E. histolytica PCR Stool Giardia Lamblia PCR Stl P. shigelloides PCR Stool Salmonella PCR Stool Sapovirus (PCR) Stl Shigella/EIEC PCR St Y.enterocolitica PCR Stool Vibrio (PCR) Stl Vibrio cholerae PCR Stl Norovirus GI/GII PCR Respiratory Panel Muhammad See Note Adenovirus (Rapid PCR) Not Detected B.pert (TEM-PCR) Not Detected B.parapertussis DNA PCR Not Detected C. pneumoniae DNA (PCR) Not Detected C. difficile Tox B Gene POSITIVE A* C. difficile Toxin A&B Positive A* C. difficile Interpret SEE NOTE Coronavirus OC43 (PCR) Not Detected Coronavirus HKU1 (PCR) Not Detected Coronavirus 229E (PCR) Not Detected COVID-19 (TAI) COVID-19 Clin Com Coronavirus NL63 (PCR) Not Detected Human Metapneumovir PCR Not Detected Influenza A (RT-PCR) Not Detected Influenza B (RT-PCR) Not Detected M. pneumoniae (PCR) Not Detected Parainfluenza 1 (PCR) Not Detected Parainfluenza 2 (PCR) Not Detected Parainfluenza 3 (PCR) Not Detected Parainfluenza 4 (PCR) Not Detected RSV (PCR) Not Detected Entero/Rhino (PCR) Not Detected SARS-CoV-2 RNA (RT-PCR) Not Detected Microbiology Microbiology Results: Microbiology 08/05/23 15:35 Blood Culture - Preliminary Blood - Venous No growth after 24 hours. 08/05/23 15:35 Blood Culture - Preliminary Blood - Venous No growth after 24 hours. Assessment and Plan (1) Hypomagnesemia: Status: Acute (2) Acute on chronic blood loss anemia: Status: Acute (3) Alcohol withdrawal syndrome: Status: Acute (4) Sepsis: Status: Resolved (5) Clostridioides difficile infection: Status: Acute (6) Colitis: Status: Acute Plan A 53 years old male with PMH of Alcoholism, chronic liver disease, CHF among others who presents to the hospital by EMS for nose bleed and LE edema. Sepsis 2\[address] showing pancolitis with possible vascular compromise and mod ascites. Also findings of portal hypertension Pending cultures Normal LA Give IV Albumin IV Flagyl and Vancomycin with oral Vancomycin for now get surgery eval GI following Acute hypoxic respiratory failure 2/2 Pneumonia likely result of atelactasis as seen on CT scan Abx as above pending cultures Wean O2 down as tolerated ID following acute dCHF exacerbation Elevated BNP, CXR showing edema , effusion and mod ascites Hold Lasix IV for sepsis and low Hb monitor I\O Symptomatic anemia 2/2 acute on chronic blood loss could be 2/2 GI or epistaxis loss and alcoholism, reporting epsitaxis once overnight Hb 8.6 after 2 units transfusion -ve occult stool GI eval , blood work, hold on EGD with negative occult monitor for epistaxis Elevated INR At 1.8 given Vit K Alcoholic liver disease w alcohol withdrawal actively drinking beer and fireballs CIWA of 11 Continue Phenobarbital protocol extra doses of Phenobarb as needed Folic acid and Thiamin replacement acute hypomagnesemia given replacement Elevated Total protein:Albumen Hypoalbumenemia Pending Immunofixation and electropheresis chronic thrombocytopenia 2\2 alcoholism, PLT of 36 today DVT PPx SCDs Patiet will likely need overnight for pneumonia, anemia, chf exacerbation pending safe discharge plan Time Spent With Patient Time: Total time managing care of this patient today ____ minutes. Quality Stroke Does the patient have a stroke diagnosis?: No VTE Prior VTE?: No VTE Risk Level:: Medical - moderate - high VTE Device Contraindication: N/A - Device Ordered VTE Drug Contraindication: Treatment Not Indicated
[2023-08-07] MEDS: 0.9 % Sodium Chloride 1,000 ML 999 ML IV (13:38)
[2023-08-07] MEDS: Potassium Chloride/H20 10 MEQ/100 ML PIGGYBACK 100 MEQ IV ×2 (13:47→14:54)
[2023-08-07] MEDS: Potassium Chloride Packet 20 MEQ PACKET 40 MEQ PO ×2 (13:47→14:54)
[2023-08-07] MEDS: Albumin Human 25 % 100 ML 133.33 ML IV ×2 (14:54→16:03)
--- NOTE | 2023-08-07 14:59 | MHC.CM.PN ---
per rounds pt not medically ready for dc
--- NOTE | 2023-08-07 15:49 | P.CNID_ITS ---
History of Present Illness Data of Consult Service Date: 08/07/23 Requesting physician: Emily Lawrence Primary Care Provider: Unknown Physician HPI Reason for consult: aspiration pneumonia, Cdiff He presents with weakness and abdominal discomfort 6/10. He has no fever or chills. He has aspiration CT scan with some pleural effusion and colitis. Cdiff is positive. Review of Systems 2 Review of Systems: Yes all other systems are reviewed and are negative [facility] Past Medical History Medical History Aspiration pneumonia Pneumonia Hypomagnesemia Cirrhosis Thrombocytopenia Alcoholic liver disease Acute on chronic anemia CHF (congestive heart failure) Anemia Alcohol abuse Family History Family history: reviewed and not pertinent Surgical History Surgical History No history of previous surgery Social History Social History Household Members: Other Household Members Other:: pt homeless Housing: Homeless Housing Other:: homeless Do you presently have visiting nurse or other home services: No Alcohol intake: current Alcohol intake frequency: 3 or more drinks per day Alcohol type: beer and hard liquor Patient Tobacco Use Status: Former Tobacco user Quit Date: 12 years ago Tobacco use type: Cigarette Second Hand Smoke Exposure: No Advance Directives Date on File: 07/13/23 service: No Meds Allergies Allergy/AdvReac Type Severity Reaction Status Date / Time No Known Allergies Allergy Verified 06/24/23 18:44 [No Known Allergies*] Active Medications: Current Medications Acetaminophen (Acetaminophen 325 Mg Tablet) 650 mg PO Q6H PRN PRN Reason: Fever >101 Last Admin: 08/07/23 15:39 Dose: 650 mg Folic Acid (Folic Acid 1 Mg Tablet) 1 mg PO DAILY [facility] Last Admin: 08/07/23 08:48 Dose: 1 mg Vancomycin HCl 1,250 mg/ (Sodium Chloride) 250 mls @ 166.667 mls/hr IV Q12H [facility] Last Infusion: 08/07/23 11:43 Dose: Infused Albumin Human (Kedbumin 25 %) 100 mls @ 133.333 mls/hr IV Q1H [facility] Stop: 08/07/23 16:29 Last Admin: 08/07/23 14:54 Dose: 133.33 mls/hr Albumin Human (Kedbumin 25 %) 100 mls @ 100 mls/hr IV Q6H [facility] Stop: 08/08/23 12:59 Metronidazole (Flagyl) 500 mg in 100 mls @ 100 mls/hr IV Q8H [facility] Magnesium Oxide (Magnesium Oxide 400 Mg Tablet) 800 mg PO DAILY [facility] Last Admin: 08/07/23 10:19 Dose: 800 mg Omeprazole (Omeprazole 40 Mg Capsule.Dr) 40 mg PO BID@0630,1630 [facility] Last Admin: 08/07/23 15:39 Dose: 40 mg Ondansetron HCl (Ondansetron Hcl 4 Mg/2 Ml Vial) 4 mg IVPUSH Q8H PRN PRN Reason: Nausea and Vomiting Pharmacy Consult (Consult Rx Etoh Phenob Im/Po) 1 each MISCELLANE ONCE PRN; Protocol PRN Reason: Consult order Pharmacy Consult (Consult Rx Vancomycin Dosing) 1 each MISCELLANE DAILY PRN PRN Reason: Consult order Phenobarbital (Phenobarbital 15 Mg Tablet) 15 mg PO BID [facility]; Protocol Stop: 08/07/23 21:01 Last Admin: 08/07/23 08:48 Dose: 15 mg Phenobarbital (Phenobarbital 15 Mg Tablet) 15 mg PO DAILY [facility]; Protocol Stop: 08/09/23 09:01 Phenobarbital Sodium (Phenobarbital Sodium 130 Mg/Ml Vial) 130 mg IM ONCE PRN PRN Reason: Alcohol Withdrawal Sodium Chloride (0.9 % Sodium Chloride Flush 3 Ml Syringe) 3 ml IVFLUSH QSHIFT [facility] Last Admin: 08/07/23 15:21 Dose: Not Given Thiamine HCl (Thiamine Hcl 100 Mg Tablet) 100 mg PO DAILY [facility] Last Admin: 08/07/23 08:48 Dose: 100 mg Vancomycin HCl (Vancomycin Hcl 125 Mg Capsule) 125 mg PO Q6H [facility] Last Admin: 08/07/23 13:47 Dose: 125 mg Home Medications Medication Instructions Recorded Confirmed Last Taken Type acetaminophen 325 mg tablet 650 mg PO Q6H PRN Headache 06/08/23 08/03/23 Unknown History Physical Exam 2 Vital Signs: Vital Signs: Last Vital Signs Temp 98.3 F 08/07/23 15:39 Pulse 95 08/07/23 15:39 Resp 22 H 08/07/23 15:39 BP 90/54 L 08/07/23 15:39 Pulse Ox 98 08/07/23 15:39 O2 Del Method Nasal Cannula 08/07/23 15:39 O2 Flow Rate 3 08/07/23 15:39 BMI result Body Mass Index 23.5 Const: General: cooperative HEENT: Head: Yes normal to inspection Face and sinus: Yes normal facial exam Mouth: Normal oral and palatal mucosa present Teeth and gingiva: d entition normal Eyes: General: appearance normal, both eyes and all related structures P upils: Equal, round and reactive pupils present Resp: Other: diminished breath sounds bases Cardio: Other: 2/6 BRIDGET Rate: regular rate Rhythm: regular rhythm GI: Other: abdominal distention,moderate Palpation (GI): Soft to palpation and nontender : General: Yes no CVA tenderness Back/Spine/Pelvis: Back: no CVA tenderness Skin: General skin exam: no rashes or lesions noted Neuro: General: moves all extremities Cranial nerves: Yes Equal, round and reactive pupils present Extrem: General: Yes normal to inspection Psych: Appearance: grossly normal Results Labs 08/07/23 07:51 08/07/23 07:51 Labs: Short CBC 08/07/23 Range/Units 07:51 WBC 6.2 (4.8-10.8) X10*3/uL Hgb 8.2 L (14.0-18.0) g/dl Hct 25.0 L (42.0-52.0) % Plt Count 36 L (160-400) X10*3/uL BMP 08/07/23 07:51 Sodium 137 Potassium 2.6 L Chloride 106 Carbon Dioxide 22 BUN 16 Creatinine 0.79 Calcium 8.4 Microbiology Microbiology Results: Microbiology 08/05/23 15:35 Blood - Venous Blood Culture - Preliminary No growth after 24 hours. 08/05/23 15:35 Blood - Venous Blood Culture - Preliminary No growth after 24 hours. Assessment and Plan (1) Colitis: Status: Acute (2) Clostridioides difficile infection: Status: Acute There is Cdiff,no bowel perforation but colitis IV Flagyl with po Vancomycin 125 qid appropriate probably ten days. (3) Aspiration pneumonia: Status: Acute May give IV Vancomycin but stop if nares negative for MRSA. He received 3 d IV Zosyn which is off but consider Doxycycline if still respiratory concern and consider tap pleural effusions. Time Spent With Patient Time: Total time managing care of this patient today ____ minutes.
[2023-08-07] MEDS: metroNIDAZOLE/NS 500 MG/100 ML PIGGYBACK 100 MG IV ×2 (15:55→22:56)
[2023-08-07] MEDS: Albumin Human 25 % 100 ML IV (17:00)
[2023-08-07 19:30] LABS: Vancomycin Random 27.4 mcg/mL (15-20)
[2023-08-08] VITALS (13 sets, daily range): BP systolic 90–115; BP diastolic 53–89; PULSE 68–95; RESP 16–20; TEMP 36.4–37.3; O2SAT 95–100
[2023-08-08 00:39] LABS: Zinc 18 mcg/dL (60-130)
[2023-08-08] MEDS: vancomycin HCL 125 MG CAPSULE PO ×4 (01:43→19:58)
[2023-08-08] MEDS: Albumin Human 25 % 100 ML IV ×3 (05:37→11:08)
[2023-08-08] MEDS: Omeprazole 40 MG CAPSULE.DR PO ×2 (05:37→16:41)
[2023-08-08] MEDS: metroNIDAZOLE/NS 500 MG/100 ML PIGGYBACK 100 MG IV ×3 (06:38→23:02)
[2023-08-08 07:40] LABS: Hematocrit 23.4 % (42.0-52.0); Hemoglobin 7.5 g/dl (14.0-18.0); Mean Corpuscular HGB Conc 32.1 g/dl (31.0-36.0); Mean Corpuscular Hemoglobin 33.6 pg (27.0-33.0); Mean Corpuscular Volume 104.9 fL (80.0-98.0); Mean Platelet Volume 13.1 fL (9.4-12.4); Red Blood Count 2.23 X10*6/uL (4.60-5.80); Red Cell Distribution Width 19.3 % (11.0-16.0)
[2023-08-08 07:41] LABS: Platelet Count 35 X10*3/uL (160-400)
[2023-08-08 07:44] LABS: Vancomycin Random 16.8 mcg/mL (15-20)
[2023-08-08 07:45] LABS: INTERNATIONAL NORM RATIO 2.7 (0.9-1.1); Prothrombin Time 33.2 SEC (11.1-13.3)
[2023-08-08 07:48] LABS: Alanine Aminotransferase 7 U/L (0-40); Albumin Level 3.5 g/dL (3.5-5.0); Alkaline Phosphatase 29 U/L (39-117); Anion Gap 13 (12-20); Aspartate Amino Transferase 20 U/L (5-37); Bilirubin Direct 1.3 mg/dL (0.0-0.5); Bilirubin Total 2.6 mg/dL (0.0-1.0); Blood Urea Nitrogen 22 mg/dL (9-16); Calcium 8.8 mg/dL (8.4-10.2); Carbon Dioxide 20 mmol/L (22-29); Chloride 108 mmol/L (96-108); Creatinine Clr Calc Pharmacy 90.7; Estimated Glomerular Filt Rate > 60; Glucose Random 112 mg/dL (60-115); Potassium 3.1 mmol/L (3.3-5.1); Sodium 138 mmol/L (135-145); Total Protein 7.3 g/dL (6.5-8.0)
--- NOTE | 2023-08-08 07:58 | HE.PHANOTE ---
RE VANCO SCR 0.84, SECOND LEVEL WAS 16.5. Restarted order at 750 q12h, new level due 08/09 @0700 bahman
[2023-08-08 08:14] LABS: B Type Natriuretic Peptide 786 pg/mL (<100)
[2023-08-08] MEDS: Magnesium Oxide 400 MG TABLET 800 MG PO (09:11)
[2023-08-08] MEDS: Thiamine HCL 100 MG TABLET PO (09:11)
[2023-08-08] MEDS: Folic Acid 1 MG TABLET PO (09:11)
[2023-08-08] MEDS: Phytonadione (Vit K1) 10 MG in 0.9 % Sodium Chloride 50 ML 51 MG IV (09:12)
[2023-08-08] MEDS: PHENobarbitaL 15 MG TABLET PO (09:12)
[2023-08-08] MEDS: vancomycin HCL 750 MG in 0.9 % Sodium Chloride 250 ML 265 MG IV ×2 (09:12→21:35)
[2023-08-08] MEDS: 0.9 % Sodium Chloride Flush 3 ML SYRINGE IVFLUSH ×2 (09:13→16:42)
--- NOTE | 2023-08-08 12:54 | P.PNIM_ITS ---
Subjective Subjective Date of Service: 08/08/23 Interval History: Seen and evaluated confused and lethargic No more fever documented overnight decreased edema in lower extremities no reported bleeding or epistaxis Hb dropped to 7.5 with low platelets Review of Systems Review of Systems: Yes all other systems are reviewed and are negative Physical Exam 2 Vital Signs: Vital Signs: Last Vital Signs Temp 98.2 F 08/08/23 11:35 Pulse 85 08/08/23 11:35 Resp 20 08/08/23 11:35 BP 90/53 L 08/08/23 11:35 Pulse Ox 95 08/08/23 08:50 O2 Del Method Room Air 08/08/23 07:50 O2 Flow Rate 3 08/08/23 03:35 BMI result Body Mass Index 23.5 Const: Other: Constitutional : Awake, interactive, not in distress Neck : Normal inspection, Supple Cardiovascular : RRR, no JVP, Trace lower extremity edema Respiratory : good bilateral air entry, basal fine RLU crackles Gastrointestinal: soft, lax, Normal bowel sounds, less LLQ tenderness Skin : Warm, Dry Neurological : Alert & oriented to self, No focal deficit Psych: Agitated , anxious Objective Data Active Medications Acetaminophen (Acetaminophen 325 Mg Tablet) 650 mg PO Q6H PRN PRN Reason: Fever >101 Last Admin: 08/07/23 15:39 Dose: 650 mg Documented By: JOCELYN Folic Acid (Folic Acid 1 Mg Tablet) 1 mg PO DAILY [facility] Last Admin: 08/08/23 09:11 Dose: 1 mg Documented By: JEFF Furosemide (Furosemide 40 Mg/4 Ml Vial) 40 mg IVPUSH ONCE ONE; Protocol Stop: 08/08/23 14:01 Albumin Human (Kedbumin 25 %) 100 mls @ 100 mls/hr IV Q6H [facility] Stop: 08/08/23 12:59 Last Infusion: 08/08/23 12:48 Dose: Infused Documented By: JEFF Metronidazole (Flagyl) 500 mg in 100 mls @ 100 mls/hr IV Q8H [facility] Last Infusion: 08/08/23 11:08 Dose: Infused Documented By: JEFF Vancomycin HCl 750 mg/ Sodium (Chloride) 265 mls @ 265 mls/hr IV Q12H [facility] Last Infusion: 08/08/23 11:49 Dose: Infused Documented By: JEFF Magnesium Oxide (Magnesium Oxide 400 Mg Tablet) 800 mg PO DAILY [facility] Last Admin: 08/08/23 09:11 Dose: 800 mg Documented By: JEFF Omeprazole (Omeprazole 40 Mg Capsule.) 40 mg PO BID@0630,1630 [facility] Last Admin: 08/08/23 05:37 Dose: 40 mg Documented By: NAZARIO Ondansetron HCl (Ondansetron Hcl 4 Mg/2 Ml Vial) 4 mg IVPUSH Q8H PRN PRN Reason: Nausea and Vomiting Pharmacy Consult (Consult Rx Etoh Phenob Im/Po) 1 each MISCELLANE ONCE PRN; Protocol PRN Reason: Consult order Pharmacy Consult (Consult Rx Vancomycin Dosing) 1 each MISCELLANE DAILY PRN PRN Reason: Consult order Phenobarbital (Phenobarbital 15 Mg Tablet) 15 mg PO DAILY [facility]; Protocol Stop: 08/09/23 09:01 Last Admin: 08/08/23 09:12 Dose: 15 mg Documented By: JEFF Phenobarbital Sodium (Phenobarbital Sodium 130 Mg/Ml Vial) 130 mg IM ONCE PRN PRN Reason: Alcohol Withdrawal Sodium Chloride (0.9 % Sodium Chloride Flush 3 Ml Syringe) 3 ml IVFLUSH QSHIFT [facility] Last Admin: 08/08/23 09:13 Dose: 3 ml Documented By: EJFF Thiamine HCl (Thiamine Hcl 100 Mg Tablet) 100 mg PO DAILY [facility] Last Admin: 08/08/23 09:11 Dose: 100 mg Documented By: JEFF Vancomycin HCl (Vancomycin Hcl 125 Mg Capsule) 125 mg PO Q6H [facility] Last Admin: 08/08/23 09:11 Dose: 125 mg Documented By: JEFF Labs 08/08/23 07:14 08/08/23 07:14 Labs: Laboratory Results - last 24 hr 08/03/23 08/04/23 08/07/23 17:24 10:12 18:53 MCV MCH MCHC RDW Plt Count MPV Absolute Nucleated RBC Nucleated RBC % (auto) PT INR Anion Gap Estim Creat Clear Calc Estimated GFR Random Glucose Calcium Total Bilirubin Direct Bilirubin AST ALT Alkaline Phosphatase B-Natriuretic Peptide Total Protein Albumin Random Vancomycin 27.4 H* Zinc 18 L Blood Type Antibody Screen Crossmatch See Detail 08/08/23 08/08/23 07:14 09:36 MCV 104.9 H MCH 33.6 H MCHC 32.1 RDW 19.3 H Plt Count 35 L MPV 13.1 H Absolute Nucleated RBC 0.000 Nucleated RBC % (auto) 0.0 PT 33.2 H D INR 2.7 H Anion Gap 13 Estim Creat Clear Calc 90.7 Estimated GFR > 60 Random Glucose 112 Calcium 8.8 Total Bilirubin 2.6 H Direct Bilirubin 1.3 H AST 20 ALT 7 Alkaline Phosphatase 29 L B-Natriuretic Peptide 786 H Total Protein 7.3 Albumin 3.5 Random Vancomycin 16.8 Zinc Blood Type B Positive Antibody Screen NEGATIVE Crossmatch See Detail Microbiology Microbiology Results: Microbiology 08/05/23 15:35 Blood Culture - Preliminary Blood - Venous No growth after 48 hours. 08/05/23 15:35 Blood Culture - Preliminary Blood - Venous No growth after 48 hours. Assessment and Plan (1) Aspiration pneumonia: Status: Acute (2) Colitis: Status: Acute (3) Clostridioides difficile infection: Status: Acute (4) Hypomagnesemia: Status: Acute (5) Sepsis: Status: Acute Plan A 53 years old male with PMH of Alcoholism, chronic liver disease, CHF among others who presents to the hospital by EMS for nose bleed and LE edema. Sepsis 2\[address] showing pancolitis with possible vascular compromise and mod ascites. Also findings of portal hypertension Pending cultures Normal LA IV Albumin Continue IV Flagyl and Vancomycin with oral Vancomycin for now GI following ID input appreciated, IV Flagyl and PO Vancomycin Acute hypoxic respiratory failure 2/[address] showing worsening Abx as above negative cultures till now MRSA nasal pending, if negative can dc IV Vancomycin per ID ID rec Thoracentesis for the effusion, will hold until medically more stable Wean O2 down as tolerated acute dCHF exacerbation Elevated BNP, CXR showing edema , effusion and mod ascites overall improved with less edema in LE but has larger effusion on CT give Albumin Hold Lasix IV for sepsis and low Hb , BP monitor I\O Symptomatic anemia 2/2 acute on chronic blood loss could be 2/2 GI or epistaxis loss and alcoholism, reporting epsitaxis once overnight Hb dropped to 7.6, had 2 units transfusion prior, to give a 3rd unit today, Platelets and FFP as well -ve occult stool GI eval , to do EGD prior to discharge (contact dr Rose when ready) monitor for epistaxis Elevated INR At 2.8 given Vit K Alcoholic liver disease w alcohol withdrawal actively drinking beer and fireballs better today Continue Phenobarbital protocol extra doses of Phenobarb as needed Folic acid and Thiamin replacement acute hypomagnesemia given replacement Elevated Total protein:Albumen Hypoalbumenemia Pending Immunofixation and electropheresis chronic thrombocytopenia 2\2 alcoholism, PLT of 36 today DVT PPx SCDs Patiet will likely need overnight for pneumonia, anemia, chf exacerbation, Cdiff infx pending safe discharge plan Time Spent With Patient Time: Total time managing care of this patient today ____ minutes. Quality Stroke Does the patient have a stroke diagnosis?: No VTE Prior VTE?: No VTE Risk Level:: Medical - moderate - high VTE Device Contraindication: N/A - Device Ordered VTE Drug Contraindication: Treatment Not Indicated
[2023-08-08] MEDS: Furosemide 40 MG/4 ML VIAL IVPUSH (14:07)
--- NOTE | 2023-08-08 20:13 | PC.NURSE ---
Addendum entered by Jorge Dudley RN 08/08/23 20:15: reported itchy sensation to right upper arm near IV, no rashes noted, discussed with MD and new order for [employer] Original Note: Assumed care at 07:00. Patietn alert and oriented to person and place and vague to situation, GUZMÁN, responds appropriately with some vagueness to situation at times. Compliant with care. 1:1 sitter and telesitter due to patietn jumping up OOB frequently, has urgency of incontinence of stool associated with diarrhea had 2 episodes today dark liquid diarrhea. Patietn C.Diff positive, precautions in place. Patient had supratherapeutic INR today, had 10 mg IV vitamin K and had 1 U FFP, 1 U PRBC, and 1 U PLT. Had 40 mg lasix with modest effect. Had 2 units albumin. Walked to with 1 assist contact guard. 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
[2023-08-08 20:53] LABS: Transglutaminase Ab IgG 3.5 U/mL; Transglutaminase IgA 9.4 U/mL
[2023-08-08] MEDS: diphenhydrAMINE HCL 50 MG/ML VIAL 25 MG IVPUSH (21:35)
[2023-08-09] MEDS: vancomycin HCL 125 MG CAPSULE PO ×4 (01:57→19:10)
[2023-08-09 04:00] VITALS: BP 101/58; PULSE 78; RESP 16; TEMP 36.6; O2SAT 93
[2023-08-09] MEDS: metroNIDAZOLE/NS 500 MG/100 ML PIGGYBACK 100 MG IV ×3 (06:24→22:13)
[2023-08-09] MEDS: Omeprazole 40 MG CAPSULE.DR PO ×2 (06:24→15:14)
[2023-08-09 06:27] LABS: Hematocrit 26.4 % (42.0-52.0); Hemoglobin 8.9 g/dl (14.0-18.0); Mean Corpuscular HGB Conc 33.7 g/dl (31.0-36.0); Mean Corpuscular Hemoglobin 34.4 pg (27.0-33.0); Mean Corpuscular Volume 101.9 fL (80.0-98.0); Mean Platelet Volume 12.1 fL (9.4-12.4); Red Blood Count 2.59 X10*6/uL (4.60-5.80); Red Cell Distribution Width 20.4 % (11.0-16.0); White Blood Count 5.1 X10*3/uL (4.8-10.8)
[2023-08-09 06:28] LABS: Platelet Count 48 X10*3/uL (160-400)
[2023-08-09 06:32] LABS: INTERNATIONAL NORM RATIO 2.3 (0.9-1.1); Prothrombin Time 27.6 SEC (11.1-13.3)
[2023-08-09 06:41] LABS: Anion Gap 10 (12-20); Blood Urea Nitrogen 22 mg/dL (9-16); Calcium 8.7 mg/dL (8.4-10.2); Carbon Dioxide 23 mmol/L (22-29); Chloride 107 mmol/L (96-108); Creatinine Clr Calc Pharmacy 96.4; Estimated Glomerular Filt Rate > 60; Glucose Random 96 mg/dL (60-115); Potassium 2.8 mmol/L (3.3-5.1); Sodium 137 mmol/L (135-145)
[2023-08-09 07:06] VITALS: BP 100/58; PULSE 75; RESP 18; TEMP 36.7; O2SAT 93
[2023-08-09] MEDS: 0.9 % Sodium Chloride Flush 3 ML SYRINGE IVFLUSH ×2 (07:47→15:14)
[2023-08-09] MEDS: Magnesium Oxide 400 MG TABLET 800 MG PO (07:47)
[2023-08-09] MEDS: Folic Acid 1 MG TABLET PO (07:48)
[2023-08-09] MEDS: Potassium Chloride ER 20 MEQ TAB.ER.PRT 40 MEQ PO (07:48)
[2023-08-09] MEDS: Thiamine HCL 100 MG TABLET PO (07:48)
[2023-08-09] MEDS: PHENobarbitaL 15 MG TABLET PO (07:48)
[2023-08-09 08:04] LABS: Vancomycin Random 19.1 mcg/mL (15-20)
--- NOTE | 2023-08-09 08:15 | HE.PHANOTE ---
CHANDRIKA ELIZONDO CHANGED DOSE TO 1250 Q 24H AUC 468 TROUGH 12, NEXT LEVEL DUE 08/11 @1900 CHRISTOPHER
[2023-08-09 09:38] VITALS: O2SAT 92
--- NOTE | 2023-08-09 10:28 | P.PNIM_ITS ---
Subjective Subjective Date of Service: 08/09/23 Interval History: noc omplaints Physical Exam 2 Vital Signs: Vital Signs: Last Vital Signs Temp 98.1 F 08/09/23 07:06 Pulse 75 08/09/23 07:06 Resp 18 08/09/23 07:06 BP 100/58 L 08/09/23 07:06 Pulse Ox 92 08/09/23 09:38 O2 Del Method Room Air 08/09/23 09:38 O2 Flow Rate 1 08/09/23 04:00 BMI result Body Mass Index 23.5 Const: Other: Constitutional : Awake, interactive, not in distress Neck : Normal inspection, Supple Cardiovascular : RRR, no JVP, Trace lower extremity edema Respiratory : good bilateral air entry, basal fine RLU crackles Gastrointestinal: soft, lax, Normal bowel sounds, less LLQ tenderness Skin : Warm, Dry Neurological : Alert & oriented to self, No focal deficit Psych: Agitated , anxious Objective Data Active Medications Acetaminophen (Acetaminophen 325 Mg Tablet) 650 mg PO Q6H PRN PRN Reason: Fever >101 Last Admin: 08/07/23 15:39 Dose: 650 mg Documented By: JOCELYN Diphenhydramine HCl (Diphenhydramine Hcl 50 Mg/Ml Vial) 25 mg IVPUSH Q6H PRN PRN Reason: Itching Last Admin: 08/08/23 21:35 Dose: 25 mg Documented By: YOSELYN Folic Acid (Folic Acid 1 Mg Tablet) 1 mg PO DAILY [facility] Last Admin: 08/09/23 07:48 Dose: 1 mg Documented By: WES Metronidazole (Flagyl) 500 mg in 100 mls @ 100 mls/hr IV Q8H [facility] Last Infusion: 08/09/23 07:43 Dose: Infused Documented By: WES Vancomycin HCl 1,250 mg/ (Sodium Chloride) 250 mls @ 166.667 mls/hr IV Q24H [facility] Magnesium Oxide (Magnesium Oxide 400 Mg Tablet) 800 mg PO DAILY [facility] Last Admin: 08/09/23 07:47 Dose: 800 mg Documented By: WES Omeprazole (Omeprazole 40 Mg Capsule.) 40 mg PO BID@0630,1630 [facility] Last Admin: 08/09/23 06:24 Dose: 40 mg Documented By: YOSELYN Ondansetron HCl (Ondansetron Hcl 4 Mg/2 Ml Vial) 4 mg IVPUSH Q8H PRN PRN Reason: Nausea and Vomiting Pharmacy Consult (Consult Rx Etoh Phenob Im/Po) 1 each MISCELLANE ONCE PRN; Protocol PRN Reason: Consult order Pharmacy Consult (Consult Rx Vancomycin Dosing) 1 each MISCELLANE DAILY PRN PRN Reason: Consult order Phenobarbital Sodium (Phenobarbital Sodium 130 Mg/Ml Vial) 130 mg IM ONCE PRN PRN Reason: Alcohol Withdrawal Sodium Chloride (0.9 % Sodium Chloride Flush 3 Ml Syringe) 3 ml IVFLUSH QSHIFT [facility] Last Admin: 08/09/23 07:47 Dose: 3 ml Documented By: WES Thiamine HCl (Thiamine Hcl 100 Mg Tablet) 100 mg PO DAILY [facility] Last Admin: 08/09/23 07:48 Dose: 100 mg Documented By: WES Vancomycin HCl (Vancomycin Hcl 125 Mg Capsule) 125 mg PO Q6H [facility] Last Admin: 08/09/23 07:47 Dose: 125 mg Documented By: WES Labs 08/09/23 06:19 08/09/23 06:19 Labs: Laboratory Results - last 24 hr 08/03/23 08/04/23 08/08/23 17:24 10:12 09:36 MCV MCH MCHC RDW Plt Count MPV Absolute Nucleated RBC Nucleated RBC % (auto) PT INR Anion Gap Estim Creat Clear Calc Estimated GFR Random Glucose Calcium Random Vancomycin Tiss Transglutamin IgG 3.5 Tiss Transglutamin IgA 9.4 Blood Type B Positive Antibody Screen NEGATIVE Crossmatch See Detail See Detail 08/09/23 08/09/23 06:19 06:59 MCV 101.9 H MCH 34.4 H MCHC 33.7 RDW 20.4 H Plt Count 48 L D MPV 12.1 Absolute Nucleated RBC 0.000 Nucleated RBC % (auto) 0.0 PT 27.6 H INR 2.3 H Anion Gap 10 L Estim Creat Clear Calc 96.4 Estimated GFR > 60 Random Glucose 96 Calcium 8.7 Random Vancomycin 19.1 Tiss Transglutamin IgG Tiss Transglutamin IgA Blood Type Antibody Screen Crossmatch Assessment and Plan (1) Aspiration pneumonia: Status: Acute (2) Colitis: Status: Acute (3) Clostridioides difficile infection: Status: Acute (4) Hypomagnesemia: Status: Acute (5) Sepsis: Status: Acute Plan A 53 years old male with PMH of etoh dependence, chronic liver disease, chronic diastolic CHF among others who presented to the hospital by EMS for nose bleed and LE edema. Sepsis 2\[address] showing pancolitis with possible vascular compromise and mod ascites. Also findings of portal hypertension Continue IV Flagyl and oral Vancomycin for now GI following Acute hypoxic respiratory failure 2/[address] showing worsening Abx as above negative cultures till now Wean O2 down as tolerated acute on chronic diastoloic exacerbation Elevated BNP, CXR showing edema , effusion and mod ascites overall improved with less edema in LE but has larger effusion on CT hypokalemia replaced Symptomatic anemia 2/2 acute on chronic blood loss could be 2/2 GI or epistaxis loss and alcoholism, reporting epsitaxis once overnight Hb dropped to 7.6, had 3 prbc, Platelets and FFP as well -ve occult stool GI eval , to do EGD prior to discharge (contact dr Rose when ready) monitor for epistaxis Elevated INR At 2.8 given Vit K etoh dependence with cirrhosis and withdrawal completed phenobarb mointor ascites (?need for tap) acute hypomagnesemia given replacement chronic thrombocytopenia 2\2 alcoholism DVT PPx SCDs due to thrombocytopenia, anemia reason for continued hospitalization:hypoxia Time Spent With Patient Time: Total time managing care of this patient today ____ minutes. Quality Stroke Does the patient have a stroke diagnosis?: No VTE Prior VTE?: No VTE Risk Level:: Medical - moderate - high VTE Device Contraindication: N/A - Device Ordered VTE Drug Contraindication: Treatment Not Indicated
[2023-08-09 10:39] LABS: MRSA Nasal PCR NEGATIVE (Negative); SA Nasal PCR NEGATIVE (Negative)
[2023-08-09 12:08] LABS: IgA 671 mg/dL (47-310); IgG 3623 mg/dL (600-1640); IgM 140 mg/dL (50-300)
[2023-08-09 15:01] VITALS: BP 119/62; PULSE 91; RESP 18; TEMP 36.4; O2SAT 91
[2023-08-09] MEDS: Doxycycline Hyclate 100 MG in 0.9 % Sodium Chloride 250 ML 166.67 MG IV (15:15)
[2023-08-09 20:00] VITALS: BP 117/64; PULSE 94; RESP 16; TEMP 36.4; O2SAT 92
[2023-08-09 22:35] LABS: Vitamin B1 101 nmol/L (8-30)
[2023-08-10] MEDS: 0.9 % Sodium Chloride Flush 3 ML SYRINGE IVFLUSH ×4 (00:04→23:33)
[2023-08-10] MEDS: vancomycin HCL 125 MG CAPSULE PO ×4 (01:56→20:32)
[2023-08-10] MEDS: Doxycycline Hyclate 100 MG in 0.9 % Sodium Chloride 250 ML 166.67 MG IV ×2 (03:39→15:24)
[2023-08-10 03:43] VITALS: BP 119/63; PULSE 66; RESP 20; TEMP 36.3; O2SAT 93
[2023-08-10] MEDS: metroNIDAZOLE/NS 500 MG/100 ML PIGGYBACK 100 MG IV (06:34)
[2023-08-10] MEDS: Omeprazole 40 MG CAPSULE.DR PO ×2 (06:34→15:24)
[2023-08-10 07:08] LABS: Alanine Aminotransferase 6 U/L (0-40); Alkaline Phosphatase 84 U/L (39-117); Anion Gap 11 (12-20); Aspartate Amino Transferase 24 U/L (5-37); Bilirubin Total 2.2 mg/dL (0.0-1.0); Blood Urea Nitrogen 14 mg/dL (9-16); Calcium 8.8 mg/dL (8.4-10.2); Carbon Dioxide 21 mmol/L (22-29); Chloride 110 mmol/L (96-108); Creatinine Clr Calc Pharmacy 113.7; Estimated Glomerular Filt Rate > 60; Glucose Fasting 103 mg/dL (60-99); Magnesium 1.5 mg/dL (1.6-2.6); Potassium 3.1 mmol/L (3.3-5.1); Sodium 139 mmol/L (135-145); Total Protein 6.9 g/dL (6.5-8.0)
[2023-08-10 07:59] VITALS: BP 132/69; PULSE 87; RESP 18; TEMP 36.5; O2SAT 94
[2023-08-10] MEDS: Magnesium Oxide 400 MG TABLET 800 MG PO (08:27)
[2023-08-10] MEDS: Thiamine HCL 100 MG TABLET PO (08:28)
[2023-08-10] MEDS: Folic Acid 1 MG TABLET PO (08:28)
[2023-08-10 08:41] VITALS: BP 132/69; PULSE 87; O2SAT 94
--- NOTE | 2023-08-10 09:22 | P.PNIM_ITS ---
Subjective Subjective Date of Service: 08/10/23 Interval History: feeling better today, no abd pain despite distension, no sob Physical Exam 2 Vital Signs: Vital Signs: Last Vital Signs Temp 97.7 F 08/10/23 07:59 Pulse 87 08/10/23 08:41 Resp 18 08/10/23 07:59 BP 132/69 08/10/23 08:41 Pulse Ox 94 08/10/23 08:41 O2 Del Method Room Air 08/10/23 07:59 O2 Flow Rate 1 08/09/23 04:00 BMI result Body Mass Index 23.5 General: AO X 3, no acute distress Resp: diminished bilateral, no accessory muscles used CVS: S1,S2,RRR GI: soft, non tender, distended Neuro: motor grossly intact, alert Psych: appropriate affect, appropriate insight Objective Data Active Medications Acetaminophen (Acetaminophen 325 Mg Tablet) 650 mg PO Q6H PRN PRN Reason: Fever >101 Last Admin: 08/07/23 15:39 Dose: 650 mg Documented By: JOCELYN Diphenhydramine HCl (Diphenhydramine Hcl 50 Mg/Ml Vial) 25 mg IVPUSH Q6H PRN PRN Reason: Itching Last Admin: 08/08/23 21:35 Dose: 25 mg Documented By: YOSELYN Folic Acid (Folic Acid 1 Mg Tablet) 1 mg PO DAILY [facility] Last Admin: 08/10/23 08:28 Dose: 1 mg Documented By: WES Doxycycline Hyclate 100 mg/ (Sodium Chloride) 250 mls @ 166.67 mls/hr IV Q12H [facility] Last Infusion: 08/10/23 05:09 Dose: Infused Documented By: AUDREY Magnesium Oxide (Magnesium Oxide 400 Mg Tablet) 800 mg PO DAILY [facility] Last Admin: 08/10/23 08:27 Dose: 800 mg Documented By: WES Omeprazole (Omeprazole 40 Mg Capsule.) 40 mg PO BID@0630,1630 [facility] Last Admin: 08/10/23 06:34 Dose: 40 mg Documented By: AUDREY Ondansetron HCl (Ondansetron Hcl 4 Mg/2 Ml Vial) 4 mg IVPUSH Q8H PRN PRN Reason: Nausea and Vomiting Pharmacy Consult (Consult Rx Etoh Phenob Im/Po) 1 each MISCELLANE ONCE PRN; Protocol PRN Reason: Consult order Pharmacy Consult (Consult Rx Vancomycin Dosing) 1 each MISCELLANE DAILY PRN PRN Reason: Consult order Phenobarbital Sodium (Phenobarbital Sodium 130 Mg/Ml Vial) 130 mg IM ONCE PRN PRN Reason: Alcohol Withdrawal Sodium Chloride (0.9 % Sodium Chloride Flush 3 Ml Syringe) 3 ml IVFLUSH QSHIFT [facility] Last Admin: 08/10/23 08:28 Dose: 3 ml Documented By: WES Thiamine HCl (Thiamine Hcl 100 Mg Tablet) 100 mg PO DAILY [facility] Last Admin: 08/10/23 08:28 Dose: 100 mg Documented By: WES Vancomycin HCl (Vancomycin Hcl 125 Mg Capsule) 125 mg PO Q6H [facility] Last Admin: 08/10/23 08:28 Dose: 125 mg Documented By: WES Labs 08/09/23 06:19 08/10/23 06:13 Labs: Laboratory Results - last 24 hr 08/04/23 08/04/23 08/09/23 06:02 10:12 05:15 Anion Gap Estim Creat Clear Calc Estimated GFR Fasting Glucose Calcium Magnesium Total Bilirubin Direct Bilirubin AST ALT Alkaline Phosphatase Total Protein Albumin Abnorm Protein Band 1 TNP Abnorm Protein Band 2 TNP Abnorm Protein Band 3 TNP Vitamin B1 101 H Nasal Screen MRSA (PCR) NEGATIVE Nasal S. aureus Screen NEGATIVE Nasal MRSA/S.aureus Interp SEE NOTE IgG Total 3623 H IgA Total 671 H IgM 140 ALEXIS Interpretation SEE NOTE 08/10/23 06:13 Anion Gap 11 L Estim Creat Clear Calc 113.7 Estimated GFR > 60 Fasting Glucose 103 H Calcium 8.8 Magnesium 1.5 L Total Bilirubin 2.2 H Direct Bilirubin 1.0 H AST 24 ALT 6 Alkaline Phosphatase 84 Total Protein 6.9 Albumin 3.0 L Abnorm Protein Band 1 Abnorm Protein Band 2 Abnorm Protein Band 3 Vitamin B1 Nasal Screen MRSA (PCR) Nasal S. aureus Screen Nasal MRSA/S.aureus Interp IgG Total IgA Total IgM ALEXIS Interpretation Assessment and Plan (1) Aspiration pneumonia: Status: Acute (2) Colitis: Status: Acute (3) Clostridioides difficile infection: Status: Acute (4) Hypomagnesemia: Status: Acute (5) Sepsis: Status: Acute Plan A 53 years old male with PMH of etoh dependence, chronic liver disease, chronic diastolic CHF among others who presented to the hospital by EMS for nose bleed and LE edema. Sepsis 2\[address] showing pancolitis with possible vascular compromise and mod ascites. Also findings of portal hypertension Continue oral Vancomycin day 4 diarrhea resolved Acute hypoxic respiratory failure 2/[address] showing worsening continue doxy off o2 acute on chronic diastoloic exacerbation Elevated BNP, CXR showing edema , effusion and mod ascites overall improved hypokalemia replace and monitor Symptomatic anemia 2/2 acute on chronic blood loss could be 2/2 GI or epistaxis loss and alcoholism, reporting epsitaxis once overnight Hb dropped to 7.6, had 3 prbc, Platelets and FFP as well -ve occult stool GI eval , eventual EGD prior to discharge (contact dr Rose when ready) monitor for epistaxis Elevated INR due to cirrhosis given Vit K, minimal improvement etoh dependence with cirrhosis and withdrawal completed phenobarb monitor ascites (?need for tap) - currently asymptomatic acute hypomagnesemia given replacement chronic thrombocytopenia 2\2 cirrhosis DVT PPx SCDs due to thrombocytopenia, anemia reason for continued hospitalization:electrolyte abnormalities Time Spent With Patient Time: Total time managing care of this patient today ____ minutes. Quality Stroke Does the patient have a stroke diagnosis?: No VTE Prior VTE?: No VTE Risk Level:: Medical - moderate - high VTE Device Contraindication: N/A - Device Ordered VTE Drug Contraindication: Treatment Not Indicated
[2023-08-10] MEDS: Potassium Chloride ER 20 MEQ TAB.ER.PRT 40 MEQ PO (09:37)
[2023-08-10 15:37] VITALS: BP 120/57; PULSE 90; RESP 18; TEMP 36.9; O2SAT 94
[2023-08-10 20:00] VITALS: BP 112/63; PULSE 90; RESP 18; TEMP 36.6; O2SAT 93
[2023-08-11] MEDS: vancomycin HCL 125 MG CAPSULE PO ×4 (01:36→20:11)
[2023-08-11 03:14] VITALS: BP 118/58; PULSE 90; RESP 18; TEMP 36.4; O2SAT 93
[2023-08-11] MEDS: Doxycycline Hyclate 100 MG in 0.9 % Sodium Chloride 250 ML 166.67 MG IV ×2 (03:54→16:34)
[2023-08-11 05:09] LABS: Hematocrit 27.3 % (42.0-52.0); PLT CLUMP 1
[2023-08-11 05:11] LABS: Mean Corpuscular Hemoglobin 33.5 pg (27.0-33.0); Mean Corpuscular Volume 101.5 fL (80.0-98.0); Mean Platelet Volume 11.9 fL (9.4-12.4); Red Blood Count 2.69 X10*6/uL (4.60-5.80)
[2023-08-11 05:13] LABS: Platelet Count 68 X10*3/uL (160-400); White Blood Count 4.2 X10*3/uL (4.8-10.8)
[2023-08-11 05:23] LABS: Anion Gap 13 (12-20); Blood Urea Nitrogen 9 mg/dL (9-16); Calcium 8.8 mg/dL (8.4-10.2); Carbon Dioxide 19 mmol/L (22-29); Chloride 111 mmol/L (96-108); Creatinine Clr Calc Pharmacy 133.6; Estimated Glomerular Filt Rate > 60; Glucose Fasting 92 mg/dL (60-99); Magnesium 1.5 mg/dL (1.6-2.6); Potassium 3.5 mmol/L (3.3-5.1); Sodium 139 mmol/L (135-145)
[2023-08-11] MEDS: Omeprazole 40 MG CAPSULE.DR PO ×2 (06:21→16:33)
[2023-08-11 06:54] VITALS: BP 101/55; PULSE 84; RESP 16; TEMP 36; O2SAT 92
[2023-08-11] MEDS: Folic Acid 1 MG TABLET PO (07:35)
[2023-08-11] MEDS: Magnesium Oxide 400 MG TABLET 800 MG PO (07:35)
[2023-08-11] MEDS: Thiamine HCL 100 MG TABLET PO (07:35)
[2023-08-11] MEDS: 0.9 % Sodium Chloride Flush 3 ML SYRINGE IVFLUSH ×3 (07:41→20:13)
--- NOTE | 2023-08-11 09:24 | P.PNIM_ITS ---
Subjective Subjective Date of Service: 08/11/23 Interval History: improving Physical Exam 2 Vital Signs: Vital Signs: Last Vital Signs Temp 96.8 F 08/11/23 06:54 Pulse 84 08/11/23 06:54 Resp 16 08/11/23 06:54 BP 101/55 L 08/11/23 06:54 Pulse Ox 92 08/11/23 06:54 O2 Del Method Room Air 08/11/23 06:54 O2 Flow Rate 1 08/09/23 04:00 BMI result Body Mass Index 23.5 General: AO X 3, no acute distress Resp: diminished bilateral, no accessory muscles used CVS: S1,S2,RRR GI: soft, non tender, distended Neuro: motor grossly intact, alert Psych: appropriate affect, appropriate insight Objective Data Active Medications Acetaminophen (Acetaminophen 325 Mg Tablet) 650 mg PO Q6H PRN PRN Reason: Fever >101 Last Admin: 08/07/23 15:39 Dose: 650 mg Documented By: JOCELYN Diphenhydramine HCl (Diphenhydramine Hcl 50 Mg/Ml Vial) 25 mg IVPUSH Q6H PRN PRN Reason: Itching Last Admin: 08/08/23 21:35 Dose: 25 mg Documented By: YOSELYN Folic Acid (Folic Acid 1 Mg Tablet) 1 mg PO DAILY [facility] Last Admin: 08/11/23 07:35 Dose: 1 mg Documented By: WES Doxycycline Hyclate 100 mg/ (Sodium Chloride) 250 mls @ 166.67 mls/hr IV Q12H [facility] Last Infusion: 08/11/23 05:26 Dose: Infused Documented By: AUDREY Magnesium Oxide (Magnesium Oxide 400 Mg Tablet) 800 mg PO DAILY [facility] Last Admin: 08/11/23 07:35 Dose: 800 mg Documented By: WES Omeprazole (Omeprazole 40 Mg Capsule.Dr) 40 mg PO BID@0630,1630 [facility] Last Admin: 08/11/23 06:21 Dose: 40 mg Documented By: AUDREY Ondansetron HCl (Ondansetron Hcl 4 Mg/2 Ml Vial) 4 mg IVPUSH Q8H PRN PRN Reason: Nausea and Vomiting Pharmacy Consult (Consult Rx Etoh Phenob Im/Po) 1 each MISCELLANE ONCE PRN; Protocol PRN Reason: Consult order Pharmacy Consult (Consult Rx Vancomycin Dosing) 1 each MISCELLANE DAILY PRN PRN Reason: Consult order Phenobarbital Sodium (Phenobarbital Sodium 130 Mg/Ml Vial) 130 mg IM ONCE PRN PRN Reason: Alcohol Withdrawal Sodium Chloride (0.9 % Sodium Chloride Flush 3 Ml Syringe) 3 ml IVFLUSH QSHIFT [facility] Last Admin: 08/11/23 07:41 Dose: 3 ml Documented By: WES Thiamine HCl (Thiamine Hcl 100 Mg Tablet) 100 mg PO DAILY [facility] Last Admin: 08/11/23 07:35 Dose: 100 mg Documented By: WES Vancomycin HCl (Vancomycin Hcl 125 Mg Capsule) 125 mg PO Q6H [facility] Last Admin: 08/11/23 07:35 Dose: 125 mg Documented By: WES Labs 08/11/23 04:42 08/11/23 04:42 Labs: Laboratory Results - last 24 hr 08/08/23 08/11/23 09:36 04:42 MCV 101.5 H MCH 33.5 H MCHC 33.0 RDW 19.0 H Plt Count 68 L D MPV 11.9 Absolute Nucleated RBC 0.000 Nucleated RBC % (auto) 0.0 Anion Gap 13 Estim Creat Clear Calc 133.6 Estimated GFR > 60 Fasting Glucose 92 Calcium 8.8 Magnesium 1.5 L Crossmatch See Detail Microbiology Microbiology Results: Microbiology 08/05/23 15:35 Blood Culture - Final Blood - Venous No growth after 5 days. 08/05/23 15:35 Blood Culture - Final Blood - Venous No growth after 5 days. Assessment and Plan (1) Aspiration pneumonia: Status: Acute (2) Colitis: Status: Acute (3) Clostridioides difficile infection: Status: Acute (4) Hypomagnesemia: Status: Acute (5) Sepsis: Status: Acute Plan A 53 years old male with PMH of etoh dependence, chronic liver disease, chronic diastolic CHF among others who presented to the hospital by EMS for nose bleed and LE edema. Sepsis 2\[address] showing pancolitis with possible vascular compromise and mod ascites. Also findings of portal hypertension Continue oral Vancomycin day 5 diarrhea resolved Acute hypoxic respiratory failure 2/[address] showing worsening continue doxy off o2 acute on chronic diastoloic exacerbation Elevated BNP, CXR showing edema , effusion and mod ascites overall improved hypokalemia replaced Symptomatic anemia 2/2 acute on chronic blood loss could be 2/2 GI or epistaxis loss and alcoholism, reporting epsitaxis once overnight Hb dropped to 7.6, had 3 prbc, Platelets and FFP as well -ve occult stool GI eval , eventual EGD prior to discharge (contact dr Rose when ready) monitor for epistaxis Elevated INR due to cirrhosis given Vit K, minimal improvement etoh dependence with cirrhosis and withdrawal completed phenobarb monitor ascites (?need for tap) - currently asymptomatic acute hypomagnesemia given replacement chronic thrombocytopenia 2\2 cirrhosis DVT PPx SCDs due to thrombocytopenia, anemia reason for continued hospitalization:?inpatient egd, colonsocopy Time Spent With Patient Time: Total time managing care of this patient today ____ minutes. Quality Stroke Does the patient have a stroke diagnosis?: No VTE Prior VTE?: No VTE Risk Level:: Medical - moderate - high VTE Device Contraindication: N/A - Device Ordered VTE Drug Contraindication: Treatment Not Indicated
--- NOTE | 2023-08-11 13:39 | MHC.CM.PN ---
per rounds pt will be here over the weekend
[2023-08-11 15:33] VITALS: BP 127/67; PULSE 95; RESP 18; TEMP 36.7; O2SAT 91
[2023-08-11 19:24] VITALS: BP 106/51; PULSE 91; RESP 18; TEMP 36.9; O2SAT 91
[2023-08-12 00:17] VITALS: BP 116/59; PULSE 94; RESP 17; TEMP 36.8; O2SAT 93
[2023-08-12] MEDS: vancomycin HCL 125 MG CAPSULE PO ×4 (01:55→20:03)
[2023-08-12] MEDS: Omeprazole 40 MG CAPSULE.DR PO ×2 (05:36→16:12)
[2023-08-12] MEDS: Doxycycline Hyclate 100 MG in 0.9 % Sodium Chloride 250 ML 166.67 MG IV ×2 (05:43→16:12)
[2023-08-12 07:30] VITALS: BP 102/46; PULSE 80; RESP 16; TEMP 36.8; O2SAT 91
[2023-08-12] MEDS: Folic Acid 1 MG TABLET PO (07:33)
[2023-08-12] MEDS: Magnesium Oxide 400 MG TABLET 800 MG PO (07:33)
[2023-08-12] MEDS: Thiamine HCL 100 MG TABLET PO (07:33)
[2023-08-12] MEDS: 0.9 % Sodium Chloride Flush 3 ML SYRINGE IVFLUSH ×3 (07:34→19:57)
--- NOTE | 2023-08-12 08:28 | P.PNIM_ITS ---
Subjective Subjective Date of Service: 08/12/23 Interval History: no complaints Physical Exam 2 Vital Signs: Vital Signs: Last Vital Signs Temp 98.3 F 08/12/23 07:30 Pulse 80 08/12/23 07:30 Resp 16 08/12/23 07:30 BP 102/46 L 08/12/23 07:30 Pulse Ox 91 L 08/12/23 07:30 O2 Del Method Room Air 08/12/23 07:30 O2 Flow Rate 1 08/09/23 04:00 BMI result Body Mass Index 23.5 General: AO X 3, no acute distress Resp: diminished bilateral, no accessory muscles used CVS: S1,S2,RRR GI: soft, non tender, distended Neuro: motor grossly intact, alert Psych: appropriate affect, appropriate insight Objective Data Active Medications Acetaminophen (Acetaminophen 325 Mg Tablet) 650 mg PO Q6H PRN PRN Reason: Fever >101 Last Admin: 08/07/23 15:39 Dose: 650 mg Documented By: JOCELYN Diphenhydramine HCl (Diphenhydramine Hcl 50 Mg/Ml Vial) 25 mg IVPUSH Q6H PRN PRN Reason: Itching Last Admin: 08/08/23 21:35 Dose: 25 mg Documented By: YOSELYN Folic Acid (Folic Acid 1 Mg Tablet) 1 mg PO DAILY [facility] Last Admin: 08/12/23 07:33 Dose: 1 mg Documented By: SARAH Doxycycline Hyclate 100 mg/ (Sodium Chloride) 250 mls @ 166.67 mls/hr IV Q12H [facility] Last Infusion: 08/12/23 07:40 Dose: Infused Documented By: SARAH Magnesium Oxide (Magnesium Oxide 400 Mg Tablet) 800 mg PO DAILY [facility] Last Admin: 08/12/23 07:33 Dose: 800 mg Documented By: SARAH Omeprazole (Omeprazole 40 Mg Capsule.Dr) 40 mg PO BID@0630,1630 [facility] Last Admin: 08/12/23 05:36 Dose: 40 mg Documented By: JUAREZ Ondansetron HCl (Ondansetron Hcl 4 Mg/2 Ml Vial) 4 mg IVPUSH Q8H PRN PRN Reason: Nausea and Vomiting Pharmacy Consult (Consult Rx Etoh Phenob Im/Po) 1 each MISCELLANE ONCE PRN; Protocol PRN Reason: Consult order Pharmacy Consult (Consult Rx Vancomycin Dosing) 1 each MISCELLANE DAILY PRN PRN Reason: Consult order Phenobarbital Sodium (Phenobarbital Sodium 130 Mg/Ml Vial) 130 mg IM ONCE PRN PRN Reason: Alcohol Withdrawal Polyethylene Glycol/Electrolytes (Peg 3350/Na Sulf,Bicarb,Cl/Kcl 4,000 Ml Soln.Recon) 4,000 ml PO ONCE ONE Stop: 08/13/23 16:01 Sodium Chloride (0.9 % Sodium Chloride Flush 3 Ml Syringe) 3 ml IVFLUSH QSHIFT [facility] Last Admin: 08/12/23 07:34 Dose: 3 ml Documented By: SARAH Thiamine HCl (Thiamine Hcl 100 Mg Tablet) 100 mg PO DAILY [facility] Last Admin: 08/12/23 07:33 Dose: 100 mg Documented By: SARAH Vancomycin HCl (Vancomycin Hcl 125 Mg Capsule) 125 mg PO Q6H [facility] Last Admin: 08/12/23 07:34 Dose: 125 mg Documented By: SARAH Labs 08/11/23 04:42 08/11/23 04:42 Assessment and Plan (1) Aspiration pneumonia: Status: Acute (2) Colitis: Status: Acute (3) Clostridioides difficile infection: Status: Acute (4) Hypomagnesemia: Status: Acute (5) Sepsis: Status: Acute Plan A 53 years old male with PMH of etoh dependence, chronic liver disease, chronic diastolic CHF among others who presented to the hospital by EMS for nose bleed and LE edema. Sepsis 2\[address] showing pancolitis with possible vascular compromise and mod ascites. Also findings of portal hypertension Continue oral Vancomycin day 04/26 diarrhea resolved Acute hypoxic respiratory failure 2/[address] showing worsening continue doxy off o2 acute on chronic diastoloic exacerbation Elevated BNP, CXR showing edema , effusion and mod ascites overall improved hypokalemia replaced Symptomatic anemia 2/2 acute on chronic blood loss could be 2/2 GI or epistaxis loss and alcoholism, reporting epsitaxis once overnight Hb dropped to 7.6, had 3 prbc, Platelets and FFP as well -ve occult stool GI eval , planned egd/colonoscopy 08/14/23 monitor for epistaxis Elevated INR due to cirrhosis given Vit K, minimal improvement etoh dependence with cirrhosis and withdrawal completed phenobarb monitor ascites (?need for tap) - currently asymptomatic acute hypomagnesemia given replacement chronic thrombocytopenia 2\2 cirrhosis DVT PPx SCDs due to thrombocytopenia, anemia reason for continued hospitalization:inpatient egd, colonsocopy Time Spent With Patient Time: Total time managing care of this patient today ____ minutes. Quality Stroke Does the patient have a stroke diagnosis?: No VTE Prior VTE?: No VTE Risk Level:: Medical - moderate - high VTE Device Contraindication: N/A - Device Ordered VTE Drug Contraindication: Treatment Not Indicated
[2023-08-12 15:38] VITALS: BP 111/60; PULSE 91; RESP 16; TEMP 36.8; O2SAT 93
[2023-08-12 19:59] VITALS: BP 115/63; PULSE 91; RESP 18; TEMP 36.7; O2SAT 92
[2023-08-12] MEDS: traZODone HCL 50 MG TABLET PO (21:49)
[2023-08-13 00:49] VITALS: BP 124/67; PULSE 99; RESP 18; TEMP 37.1; O2SAT 95
[2023-08-13] MEDS: vancomycin HCL 125 MG CAPSULE PO ×4 (01:28→19:32)
[2023-08-13] MEDS: Doxycycline Hyclate 100 MG in 0.9 % Sodium Chloride 250 ML 166.67 MG IV ×2 (04:19→15:20)
[2023-08-13] MEDS: Omeprazole 40 MG CAPSULE.DR PO ×2 (06:00→15:20)
[2023-08-13 07:08] VITALS: BP 108/61; PULSE 93; RESP 17; TEMP 37.1; O2SAT 94
[2023-08-13] MEDS: Magnesium Oxide 400 MG TABLET 800 MG PO (08:12)
[2023-08-13] MEDS: Folic Acid 1 MG TABLET PO (08:12)
[2023-08-13] MEDS: 0.9 % Sodium Chloride Flush 3 ML SYRINGE IVFLUSH ×3 (08:13→19:32)
[2023-08-13] MEDS: Thiamine HCL 100 MG TABLET PO (08:13)
--- NOTE | 2023-08-13 08:22 | P.PNIM_ITS ---
Subjective Subjective Date of Service: 08/13/23 Interval History: no complaints Physical Exam 2 Vital Signs: Vital Signs: Last Vital Signs Temp 98.7 F 08/13/23 07:08 Pulse 93 08/13/23 07:08 Resp 17 08/13/23 07:08 BP 108/61 08/13/23 07:08 Pulse Ox 94 08/13/23 07:08 O2 Del Method Room Air 08/13/23 07:08 O2 Flow Rate 1 08/09/23 04:00 BMI result Body Mass Index 23.5 General: AO X 3, no acute distress Resp: diminished bilateral, no accessory muscles used CVS: S1,S2,RRR GI: soft, non tender, distended Neuro: motor grossly intact, alert Psych: appropriate affect, appropriate insight Objective Data Active Medications Acetaminophen (Acetaminophen 325 Mg Tablet) 650 mg PO Q6H PRN PRN Reason: Fever >101 Last Admin: 08/07/23 15:39 Dose: 650 mg Documented By: JOCELYN Diphenhydramine HCl (Diphenhydramine Hcl 50 Mg/Ml Vial) 25 mg IVPUSH Q6H PRN PRN Reason: Itching Last Admin: 08/08/23 21:35 Dose: 25 mg Documented By: YOSELYN Folic Acid (Folic Acid 1 Mg Tablet) 1 mg PO DAILY [facility] Last Admin: 08/13/23 08:12 Dose: 1 mg Documented By: SARAH Doxycycline Hyclate 100 mg/ (Sodium Chloride) 250 mls @ 166.67 mls/hr IV Q12H [facility] Last Infusion: 08/13/23 06:21 Dose: Infused Documented By: NAZARIO Magnesium Oxide (Magnesium Oxide 400 Mg Tablet) 800 mg PO DAILY [facility] Last Admin: 08/13/23 08:12 Dose: 800 mg Documented By: SARAH Omeprazole (Omeprazole 40 Mg Capsule.Dr) 40 mg PO BID@0630,1630 [facility] Last Admin: 08/13/23 06:00 Dose: 40 mg Documented By: NAZARIO Ondansetron HCl (Ondansetron Hcl 4 Mg/2 Ml Vial) 4 mg IVPUSH Q8H PRN PRN Reason: Nausea and Vomiting Pharmacy Consult (Consult Rx Etoh Phenob Im/Po) 1 each MISCELLANE ONCE PRN; Protocol PRN Reason: Consult order Pharmacy Consult (Consult Rx Vancomycin Dosing) 1 each MISCELLANE DAILY PRN PRN Reason: Consult order Phenobarbital Sodium (Phenobarbital Sodium 130 Mg/Ml Vial) 130 mg IM ONCE PRN PRN Reason: Alcohol Withdrawal Polyethylene Glycol/Electrolytes (Peg 3350/Na Sulf,Bicarb,Cl/Kcl 4,000 Ml Soln.Recon) 4,000 ml PO ONCE ONE Stop: 08/13/23 16:01 Sodium Chloride (0.9 % Sodium Chloride Flush 3 Ml Syringe) 3 ml IVFLUSH QSHIFT [facility] Last Admin: 08/13/23 08:13 Dose: 3 ml Documented By: SARAH Thiamine HCl (Thiamine Hcl 100 Mg Tablet) 100 mg PO DAILY [facility] Last Admin: 08/13/23 08:13 Dose: 100 mg Documented By: SARAH Vancomycin HCl (Vancomycin Hcl 125 Mg Capsule) 125 mg PO Q6H [facility] Last Admin: 08/13/23 08:12 Dose: 125 mg Documented By: SARAH Labs 08/11/23 04:42 08/11/23 04:42 Assessment and Plan (1) Aspiration pneumonia: Status: Acute (2) Colitis: Status: Acute (3) Clostridioides difficile infection: Status: Acute (4) Hypomagnesemia: Status: Acute (5) Sepsis: Status: Acute Plan A 53 years old male with PMH of etoh dependence, chronic liver disease, chronic diastolic CHF among others who presented to the hospital by EMS for nose bleed and LE edema. Sepsis 2\[address] showing pancolitis with possible vascular compromise and mod ascites. Also findings of portal hypertension Continue oral Vancomycin day 05/26 diarrhea resolved Acute hypoxic respiratory failure 2/[address] showing worsening continue doxy - started 08/09/23 off o2 acute on chronic diastoloic exacerbation Elevated BNP, CXR showing edema , effusion and mod ascites overall improved hypokalemia replaced Symptomatic anemia 2/2 acute on chronic blood loss could be 2/2 GI or epistaxis loss and alcoholism, reporting epsitaxis once overnight Hb dropped to 7.6, had 3 prbc, Platelets and FFP as well -ve occult stool GI eval , planned egd/colonoscopy 08/14/23 monitor for epistaxis Elevated INR due to cirrhosis given Vit K, minimal improvement etoh dependence with cirrhosis and withdrawal completed phenobarb monitor ascites (?need for tap) - currently asymptomatic acute hypomagnesemia given replacement chronic thrombocytopenia 2\2 cirrhosis DVT PPx SCDs due to thrombocytopenia, anemia reason for continued hospitalization:inpatient egd, colonsocopy Time Spent With Patient Time: Total time managing care of this patient today ____ minutes. Quality Stroke Does the patient have a stroke diagnosis?: No VTE Prior VTE?: No VTE Risk Level:: Medical - moderate - high VTE Device Contraindication: N/A - Device Ordered VTE Drug Contraindication: Treatment Not Indicated
[2023-08-13 16:00] VITALS: BP 105/54; PULSE 90
[2023-08-13] MEDS: PEG 3350/Na Sulf,Bicarb,Cl/KCL 4,000 ML SOLN.RECON 4000 ML PO (17:12)
[2023-08-13 18:58] VITALS: BP 106/55; PULSE 92; RESP 18; TEMP 36.7; O2SAT 93
[2023-08-13 23:46] VITALS: BP 114/63; PULSE 88; RESP 16; TEMP 37.3; O2SAT 92
[2023-08-14] VITALS (11 sets, daily range): BP systolic 103–126; BP diastolic 53–64; PULSE 58–92; RESP 16–20; TEMP 36.1–37.1; O2SAT 90–97
[2023-08-14] MEDS: Doxycycline Hyclate 100 MG in 0.9 % Sodium Chloride 250 ML 166.67 MG IV ×2 (03:05→15:58)
[2023-08-14 05:57] LABS: Anion Gap 14 (12-20); Blood Urea Nitrogen 9 mg/dL (9-16); Calcium 9.5 mg/dL (8.4-10.2); Carbon Dioxide 19 mmol/L (22-29); Chloride 108 mmol/L (96-108); Creatinine Clr Calc Pharmacy 120.9; Estimated Glomerular Filt Rate > 60; Glucose Fasting 83 mg/dL (60-99); Potassium 4.2 mmol/L (3.3-5.1); Sodium 137 mmol/L (135-145)
[2023-08-14 06:25] LABS: Hematocrit 27.2 % (42.0-52.0); Hemoglobin 9.1 g/dl (14.0-18.0); Mean Corpuscular HGB Conc 33.5 g/dl (31.0-36.0); Mean Corpuscular Hemoglobin 34.5 pg (27.0-33.0); Red Blood Count 2.64 X10*6/uL (4.60-5.80); Red Cell Distribution Width 18.5 % (11.0-16.0); White Blood Count 4.1 X10*3/uL (4.8-10.8)
[2023-08-14 06:26] LABS: Platelet Count 79 X10*3/uL (160-400)
[2023-08-14] MEDS: 0.9 % Sodium Chloride Flush 3 ML SYRINGE IVFLUSH ×2 (08:57→19:59)
--- NOTE | 2023-08-14 09:33 | P.PNIM_ITS ---
Subjective Subjective Date of Service: 08/14/23 Interval History: no complaints Physical Exam 2 Vital Signs: Vital Signs: Last Vital Signs Temp 98.6 F 08/14/23 07:15 Pulse 86 08/14/23 07:15 Resp 18 08/14/23 07:15 BP 120/57 L 08/14/23 07:15 Pulse Ox 92 08/14/23 07:15 O2 Del Method Room Air 08/14/23 07:15 O2 Flow Rate 1 08/09/23 04:00 BMI result Body Mass Index 23.5 General: AO X 3, no acute distress Resp: diminished bilateral, no accessory muscles used CVS: S1,S2,RRR GI: soft, non tender, distended Neuro: motor grossly intact, alert Psych: appropriate affect, appropriate insight Objective Data Active Medications Acetaminophen (Acetaminophen 325 Mg Tablet) 650 mg PO Q6H PRN PRN Reason: Fever >101 Last Admin: 08/07/23 15:39 Dose: 650 mg Documented By: JOCELYN Diphenhydramine HCl (Diphenhydramine Hcl 50 Mg/Ml Vial) 25 mg IVPUSH Q6H PRN PRN Reason: Itching Last Admin: 08/08/23 21:35 Dose: 25 mg Documented By: YOSELYN Folic Acid (Folic Acid 1 Mg Tablet) 1 mg PO DAILY [facility] Last Admin: 08/14/23 08:54 Dose: Not Given Documented By: KALI Non-Admin Reason: NPO Doxycycline Hyclate 100 mg/ (Sodium Chloride) 250 mls @ 166.67 mls/hr IV Q12H [facility] Last Infusion: 08/14/23 05:05 Dose: Infused Documented By: TYREE Magnesium Oxide (Magnesium Oxide 400 Mg Tablet) 800 mg PO DAILY [facility] Last Admin: 08/14/23 08:54 Dose: Not Given Documented By: KALI Non-Admin Reason: NPO Omeprazole (Omeprazole 40 Mg Capsule.Dr) 40 mg PO BID@0630,1630 [facility] Last Admin: 08/14/23 05:07 Dose: Not Given Documented By: TYREE Non-Admin Reason: NPO Ondansetron HCl (Ondansetron Hcl 4 Mg/2 Ml Vial) 4 mg IVPUSH Q8H PRN PRN Reason: Nausea and Vomiting Pharmacy Consult (Consult Rx Etoh Phenob Im/Po) 1 each MISCELLANE ONCE PRN; Protocol PRN Reason: Consult order Pharmacy Consult (Consult Rx Vancomycin Dosing) 1 each MISCELLANE DAILY PRN PRN Reason: Consult order Phenobarbital Sodium (Phenobarbital Sodium 130 Mg/Ml Vial) 130 mg IM ONCE PRN PRN Reason: Alcohol Withdrawal Sodium Chloride (0.9 % Sodium Chloride Flush 3 Ml Syringe) 3 ml IVFLUSH QSHIFT [facility] Last Admin: 08/14/23 08:57 Dose: 3 ml Documented By: KALI Thiamine HCl (Thiamine Hcl 100 Mg Tablet) 100 mg PO DAILY [facility] Last Admin: 08/14/23 08:54 Dose: Not Given Documented By: KALI Non-Admin Reason: NPO Vancomycin HCl (Vancomycin Hcl 125 Mg Capsule) 125 mg PO Q6H [facility] Last Admin: 08/14/23 08:54 Dose: Not Given Documented By: KALI Non-Admin Reason: NPO Labs 08/14/23 05:32 08/14/23 05:32 Labs: Laboratory Results - last 24 hr 08/14/23 05:32 MCV 103.0 H MCH 34.5 H MCHC 33.5 RDW 18.5 H Plt Count 79 L MPV 12.0 Absolute Nucleated RBC 0.000 Nucleated RBC % (auto) 0.0 Anion Gap 14 Estim Creat Clear Calc 120.9 Estimated GFR > 60 Fasting Glucose 83 Calcium 9.5 D Assessment and Plan (1) Aspiration pneumonia: Status: Acute (2) Colitis: Status: Acute (3) Clostridioides difficile infection: Status: Acute (4) Hypomagnesemia: Status: Acute (5) Sepsis: Status: Acute Plan A 53 years old male with PMH of etoh dependence, chronic liver disease, chronic diastolic CHF among others who presented to the hospital by EMS for nose bleed and LE edema. Sepsis 2\[address] showing pancolitis with possible vascular compromise and mod ascites. Also findings of portal hypertension Continue oral Vancomycin day 06/26 diarrhea resolved Acute hypoxic respiratory failure 2/[address] showing worsening continue doxy - started 08/09/23 off o2 acute on chronic diastoloic exacerbation Elevated BNP, CXR showing edema , effusion and mod ascites overall improved hypokalemia replaced Symptomatic anemia 2/2 acute on chronic blood loss could be 2/2 GI or epistaxis loss and alcoholism, reporting epsitaxis once overnight Hb dropped to 7.6, had 3 prbc, Platelets and FFP as well -ve occult stool GI eval , planned egd/colonoscopy 08/14/23 monitor for epistaxis Elevated INR due to cirrhosis given Vit K, minimal improvement etoh dependence with cirrhosis and withdrawal completed phenobarb monitor ascites (?need for tap) - currently asymptomatic acute hypomagnesemia given replacement chronic thrombocytopenia 2\2 cirrhosis DVT PPx SCDs due to thrombocytopenia, anemia reason for continued hospitalization:inpatient egd, colonsocopy Time Spent With Patient Time: Total time managing care of this patient today ____ minutes. Quality Stroke Does the patient have a stroke diagnosis?: No VTE Prior VTE?: No VTE Risk Level:: Medical - moderate - high VTE Device Contraindication: N/A - Device Ordered VTE Drug Contraindication: Treatment Not Indicated
[2023-08-14 10:56] LABS: INTERNATIONAL NORM RATIO 2.3 (0.9-1.1); Prothrombin Time 27.9 SEC (11.1-13.3)
--- NOTE | 2023-08-14 12:01 | HO.ANESPROP2 ---
HPI - Anesthesia Eval Consult details Narrative: gi bleed, egd, colonoscopy, aspiration pneumonia PMFSH Active Problems Active Problems: All Active Problems (Updated 08/08/23 @ 13:16 by Emily Lawrence MD) Sepsis (Acute) Aspiration pneumonia (Acute) Colitis (Acute) Clostridioides difficile infection (Acute) Hypomagnesemia (Acute) Malnutrition (Acute) Acute on chronic blood loss anemia (Acute) Edema (Acute) CHF (congestive heart failure) (Acute) Anemia (Acute) Alcohol withdrawal syndrome (Acute) Past Medical History Medical History Aspiration pneumonia Pneumonia Hypomagnesemia Cirrhosis Thrombocytopenia Alcoholic liver disease Acute on chronic anemia CHF (congestive heart failure) Anemia Alcohol abuse Family History Family history of problems with anesthesia: No Surgical History Surgical History No history of previous surgery History of Problems with Anesthesia: No Social History Social History Household Members: Other Household Members Other:: pt homeless Housing: Homeless Housing Other:: homeless Do you presently have visiting nurse or other home services: No Alcohol intake: current Alcohol intake frequency: 3 or more drinks per day Alcohol type: beer and hard liquor Patient Tobacco Use Status: Former Tobacco user Quit Date: 12 years ago Tobacco use type: Cigarette Second Hand Smoke Exposure: No Advance Directives Date on File: 07/13/23 service: No Meds Allergies Allergy/AdvReac Type Severity Reaction Status Date / Time No Known Allergies Allergy Verified 06/24/23 18:44 [No Known Allergies*] Active Medications: Current Medications Acetaminophen (Acetaminophen 325 Mg Tablet) 650 mg PO Q6H PRN PRN Reason: Fever >101 Last Admin: 08/07/23 15:39 Dose: 650 mg Diphenhydramine HCl (Diphenhydramine Hcl 50 Mg/Ml Vial) 25 mg IVPUSH Q6H PRN PRN Reason: Itching Last Admin: 08/08/23 21:35 Dose: 25 mg Folic Acid (Folic Acid 1 Mg Tablet) 1 mg PO DAILY JOSE MANUEL Last Admin: 08/14/23 08:54 Dose: Not Given Doxycycline Hyclate 100 mg/ (Sodium Chloride) 250 mls @ 166.67 mls/hr IV Q12H JOSE MANUEL Last Infusion: 08/14/23 05:05 Dose: Infused Magnesium Oxide (Magnesium Oxide 400 Mg Tablet) 800 mg PO DAILY [facility] Last Admin: 08/14/23 08:54 Dose: Not Given Omeprazole (Omeprazole 40 Mg Capsule.Dr) 40 mg PO BID@0630,1630 [facility] Last Admin: 08/14/23 05:07 Dose: Not Given Ondansetron HCl (Ondansetron Hcl 4 Mg/2 Ml Vial) 4 mg IVPUSH Q8H PRN PRN Reason: Nausea and Vomiting Pharmacy Consult (Consult Rx Etoh Phenob Im/Po) 1 each MISCELLANE ONCE PRN; Protocol PRN Reason: Consult order Pharmacy Consult (Consult Rx Vancomycin Dosing) 1 each MISCELLANE DAILY PRN PRN Reason: Consult order Phenobarbital Sodium (Phenobarbital Sodium 130 Mg/Ml Vial) 130 mg IM ONCE PRN PRN Reason: Alcohol Withdrawal Sodium Chloride (0.9 % Sodium Chloride Flush 3 Ml Syringe) 3 ml IVFLUSH QSHIFT [facility] Last Admin: 08/14/23 08:57 Dose: 3 ml Thiamine HCl (Thiamine Hcl 100 Mg Tablet) 100 mg PO DAILY [facility] Last Admin: 08/14/23 08:54 Dose: Not Given Vancomycin HCl (Vancomycin Hcl 125 Mg Capsule) 125 mg PO Q6H [facility] Last Admin: 08/14/23 08:54 Dose: Not Given Home Medications Medication Instructions Recorded Confirmed Last Taken Type acetaminophen 325 mg tablet 650 mg PO Q6H PRN Headache 06/08/23 08/03/23 Unknown History Exam Exam Date and Time: August 14, 2023 1201 Height,Weight and Vital Signs: Height 5 ft 6 in Weight 66.1 kg Last Vital Signs Temp 98.6 F 08/14/23 07:15 Pulse 86 08/14/23 07:15 Resp 18 08/14/23 07:15 BP 120/57 L 08/14/23 07:15 Pulse Ox 92 08/14/23 07:15 O2 Del Method Room Air 08/14/23 07:15 O2 Flow Rate 1 08/09/23 04:00 Pertinent Lab Results Pertinent Lab Results: Laboratory Tests 08/03/23 08/03/23 08/03/23 15:01 15:02 17:24 WBC 4.8 RBC 1.85 L Hgb 6.5 L* Hct 18.8 L* MCV 101.6 H MCH 35.1 H MCHC 34.6 RDW 17.7 H Plt Count 45 L MPV 11.8 Immature Gran % (Auto) 0.6 H Neut % (Auto) 66.6 Lymph % (Auto) 18.7 L [place] % (Auto) 12.2 H Eos % (Auto) 1.5 Baso % (Auto) 0.4 Lymph # (Auto) 0.9 L [place] # (Auto) 0.6 Eos # (Auto) 0.1 Baso # (Auto) 0.0 Abs Immat Gran (auto) 0.03 Absolute Neuts (auto) 3.2 Absolute Nucleated RBC 0.000 Nucleated RBC % (auto) 0.0 Hold Purple Top PT 21.4 H D INR 1.8 H APTT 36.7 H Sodium 136 Potassium 3.8 Chloride 109 H Carbon Dioxide 21 L Anion Gap 10 L BUN 9 Creatinine 0.61 Estim Creat Clear Calc 124.9 Estimated GFR > 60 Random Glucose 114 Fasting Glucose Lactic Acid Calcium 8.8 Magnesium 1.4 L* Iron 114 TIBC 139 L % Saturation 82 H Unsat Iron Binding < 25 Total Bilirubin 2.8 H Direct Bilirubin 1.1 H AST 40 H ALT 11 Alkaline Phosphatase 91 Troponin I High Sens 6.4 D B-Natriuretic Peptide 362 H Total Protein 7.6 Total Protein (PEP) Albumin 2.5 L Albumin (PEP) Zfmur-9-Tthqngdak Aafcy-5-Vonohgfta Lbfr-8-Grkfrwff Xtiy-2-Yyqsmlbf Gamma Globulins Abnorm Protein Band 1 Abnorm Protein Band 2 Abnorm Protein Band 3 PEP Interpretation Lipase 45 Vitamin B1 Vitamin B12 Folate Hold Green Top Urine Color Urine Appearance Urine pH Ur Specific [place] Urine Protein Urine Glucose (UA) Urine Ketones Urine Blood Urine Nitrite Ur Leukocyte Esterase Nasal Screen MRSA (PCR) Nasal S. aureus Screen Nasal MRSA/S.aureus Interp Stool Occult Blood Stl C. cayetanensis PCR Stool Rotavirus A PCR Stl Adenov F 40/41 PCR Stool Astrovirus (PCR) Stool Campylobacter PCR Stool Cryptosporidium PCR Stl Sh Tox Pr E STEC PCR Stool E coli O157 PCR Stl Enterotoxigenic E PCR Stool EPEC (PCR) Stool EAEC (PCR) Stl E. histolytica PCR Stool Giardia Lamblia PCR Stl P. shigelloides PCR Stool Salmonella PCR Stool Sapovirus (PCR) Stl Shigella/EIEC PCR St Y.enterocolitica PCR Stool Vibrio (PCR) Stl Vibrio cholerae PCR Stl Norovirus GI/GII PCR Random Vancomycin Ethyl Alcohol 69 Zinc IgG Total IgA Total IgM ALEXIS Interpretation Tiss Transglutamin IgG Tiss Transglutamin IgA Respiratory Panel Muhammad Adenovirus (Rapid PCR) B.pert (TEM-PCR) B.parapertussis DNA PCR C. pneumoniae DNA (PCR) C. difficile Tox B Gene C. difficile Toxin A&B C. difficile Interpret Coronavirus OC43 (PCR) Coronavirus HKU1 (PCR) Coronavirus 229E (PCR) COVID-19 (TAI) COVID-19 Clin Com Coronavirus NL63 (PCR) Hepatitis A IgM Ab Hep Bs Antigen Hep Bs Antibody Hep B Core Total Ab Hepatitis C Ab (EIA) Human Metapneumovir PCR Influenza A (RT-PCR) Influenza Type A (PCR) NEGATIVE Influenza B (RT-PCR) Influenza Type B (PCR) NEGATIVE M. pneumoniae (PCR) Parainfluenza 1 (PCR) Parainfluenza 2 (PCR) Parainfluenza 3 (PCR) Parainfluenza 4 (PCR) RSV (PCR) RSV RNA Qual (PCR) NEGATIVE Entero/Rhino (PCR) SARS-CoV-2 RNA (RT-PCR) NEGATIVE Blood Type B Positive Antibody Screen NEGATIVE Crossmatch See Detail 08/03/23 08/04/23 08/04/23 18:01 06:02 08:22 WBC 4.2 L RBC 2.14 L Hgb 7.3 L Hct 22.0 L MCV 102.8 H MCH 34.1 H MCHC 33.2 RDW 18.1 H Plt Count 41 L MPV 12.6 H Immature Gran % (Auto) Neut % (Auto) Lymph % (Auto) [place] % (Auto) Eos % (Auto) Baso % (Auto) Lymph # (Auto) [place] # (Auto) Eos # (Auto) Baso # (Auto) Abs Immat Gran (auto) Absolute Neuts (auto) Absolute Nucleated RBC 0.000 Nucleated RBC % (auto) 0.0 Hold Purple Top PT INR APTT Sodium Potassium Chloride Carbon Dioxide Anion Gap BUN Creatinine Estim Creat Clear Calc Estimated GFR Random Glucose Fasting Glucose Lactic Acid Calcium Magnesium 1.9 Iron TIBC % Saturation Unsat Iron Binding Total Bilirubin Direct Bilirubin AST ALT Alkaline Phosphatase Troponin I High Sens B-Natriuretic Peptide Total Protein Total Protein (PEP) 7.4 Albumin Albumin (PEP) 3.1 L Looqx-9-Nhhcmccpd 0.2 Uzvdg-1-Dlatzytqt 0.4 L Zbqw-7-Ojovzjqx 0.2 L Jbfl-4-Jrqbttop 0.6 H Gamma Globulins 3.0 H Abnorm Protein Band 1 TNP Abnorm Protein Band 2 TNP Abnorm Protein Band 3 TNP PEP Interpretation SEE NOTE Lipase Vitamin B1 Vitamin B12 Folate Hold Green Top Urine Color Yellow Urine Appearance Clear Urine pH 7.0 Ur Specific [place] <= 1.005 Urine Protein Negative Urine Glucose (UA) Negative Urine Ketones Negative Urine Blood Negative Urine Nitrite Negative Ur Leukocyte Esterase Negative Nasal Screen MRSA (PCR) Nasal S. aureus Screen Nasal MRSA/S.aureus Interp Stool Occult Blood NEGATIVE Stl C. cayetanensis PCR Stool Rotavirus A PCR Stl Adenov F 40/41 PCR Stool Astrovirus (PCR) Stool Campylobacter PCR Stool Cryptosporidium PCR Stl Sh Tox Pr E STEC PCR Stool E coli O157 PCR Stl Enterotoxigenic E PCR Stool EPEC (PCR) Stool EAEC (PCR) Stl E. histolytica PCR Stool Giardia Lamblia PCR Stl P. shigelloides PCR Stool Salmonella PCR Stool Sapovirus (PCR) Stl Shigella/EIEC PCR St Y.enterocolitica PCR Stool Vibrio (PCR) Stl Vibrio cholerae PCR Stl Norovirus GI/GII PCR Random Vancomycin Ethyl Alcohol Zinc IgG Total 3623 H IgA Total 671 H IgM 140 ALEXIS Interpretation SEE NOTE Tiss Transglutamin IgG Tiss Transglutamin IgA Respiratory Panel Muhammad Adenovirus (Rapid PCR) B.pert (TEM-PCR) B.parapertussis DNA PCR C. pneumoniae DNA (PCR) C. difficile Tox B Gene C. difficile Toxin A&B C. difficile Interpret Coronavirus OC43 (PCR) Coronavirus HKU1 (PCR) Coronavirus 229E (PCR) COVID-19 (TAI) COVID-19 Clin Com Coronavirus NL63 (PCR) Hepatitis A IgM Ab Nonreactive Hep Bs Antigen Negative Hep Bs Antibody NONREACTIVE Hep B Core Total Ab Nonreactive Hepatitis C Ab (EIA) Nonreactive Human Metapneumovir PCR Influenza A (RT-PCR) Influenza Type A (PCR) Influenza B (RT-PCR) Influenza Type B (PCR) M. pneumoniae (PCR) Parainfluenza 1 (PCR) Parainfluenza 2 (PCR) Parainfluenza 3 (PCR) Parainfluenza 4 (PCR) RSV (PCR) RSV RNA Qual (PCR) Entero/Rhino (PCR) SARS-CoV-2 RNA (RT-PCR) Blood Type Antibody Screen Crossmatch 08/04/23 08/05/23 08/05/23 10:12 05:57 15:35 WBC 7.2 RBC 2.54 L Hgb 8.6 L Hct 25.5 L MCV 100.4 H MCH 33.9 H MCHC 33.7 RDW 18.9 H Plt Count 40 L MPV 12.9 H Immature Gran % (Auto) Neut % (Auto) Lymph % (Auto) [place] % (Auto) Eos % (Auto) Baso % (Auto) Lymph # (Auto) [place] # (Auto) Eos # (Auto) Baso # (Auto) Abs Immat Gran (auto) Absolute Neuts (auto) Absolute Nucleated RBC 0.000 Nucleated RBC % (auto) 0.0 Hold Purple Top SEE NOTE PT INR APTT Sodium Potassium Chloride Carbon Dioxide Anion Gap BUN Creatinine Estim Creat Clear Calc Estimated GFR Random Glucose Fasting Glucose Lactic Acid 2.0 Calcium Magnesium Iron TIBC % Saturation Unsat Iron Binding Total Bilirubin 5.2 H Direct Bilirubin 1.3 H AST 41 H ALT 10 Alkaline Phosphatase 72 Troponin I High Sens B-Natriuretic Peptide 539 H Total Protein 7.3 Total Protein (PEP) Albumin 2.7 L Albumin (PEP) Etnqc-2-Tzswdvjss Kbhrn-9-Akkgiktwr Lcaf-5-Gkhmdhns Mjgu-5-Akppiayl Gamma Globulins Abnorm Protein Band 1 Abnorm Protein Band 2 Abnorm Protein Band 3 PEP Interpretation Lipase Vitamin B1 101 H Vitamin B12 1003 H Folate > 20.0 Hold Green Top See Note Urine Color Urine Appearance Urine pH Ur Specific [place] Urine Protein Urine Glucose (UA) Urine Ketones Urine Blood Urine Nitrite Ur Leukocyte Esterase Nasal Screen MRSA (PCR) Nasal S. aureus Screen Nasal MRSA/S.aureus Interp Stool Occult Blood Stl C. cayetanensis PCR Stool Rotavirus A PCR Stl Adenov F 40/ PCR Stool Astrovirus (PCR) Stool Campylobacter PCR Stool Cryptosporidium PCR Stl Sh Tox Pr E STEC PCR Stool E coli O157 PCR Stl Enterotoxigenic E PCR Stool EPEC (PCR) Stool EAEC (PCR) Stl E. histolytica PCR Stool Giardia Lamblia PCR Stl P. shigelloides PCR Stool Salmonella PCR Stool Sapovirus (PCR) Stl Shigella/EIEC PCR St Y.enterocolitica PCR Stool Vibrio (PCR) Stl Vibrio cholerae PCR Stl Norovirus GI/GII PCR Random Vancomycin Ethyl Alcohol Zinc 18 L IgG Total IgA Total IgM ALEXIS Interpretation Tiss Transglutamin IgG 3.5 Tiss Transglutamin IgA 9.4 Respiratory Panel Muhammad Adenovirus (Rapid PCR) B.pert (TEM-PCR) B.parapertussis DNA PCR C. pneumoniae DNA (PCR) C. difficile Tox B Gene C. difficile Toxin A&B C. difficile Interpret Coronavirus OC43 (PCR) Coronavirus HKU1 (PCR) Coronavirus 229E (PCR) COVID-19 (TAI) COVID-19 Clin Com Coronavirus NL63 (PCR) Hepatitis A IgM Ab Hep Bs Antigen Hep Bs Antibody Hep B Core Total Ab Hepatitis C Ab (EIA) Human Metapneumovir PCR Influenza A (RT-PCR) Influenza Type A (PCR) Influenza B (RT-PCR) Influenza Type B (PCR) M. pneumoniae (PCR) Parainfluenza 1 (PCR) Parainfluenza 2 (PCR) Parainfluenza 3 (PCR) Parainfluenza 4 (PCR) RSV (PCR) RSV RNA Qual (PCR) Entero/Rhino (PCR) SARS-CoV-2 RNA (RT-PCR) Blood Type Antibody Screen Crossmatch 08/06/23 08/06/23 08/07/23 07:54 18:30 02:30 WBC 7.9 RBC 2.47 L Hgb 8.6 L Hct 24.9 L MCV 100.8 H MCH 34.8 H MCHC 34.5 RDW 19.0 H Plt Count 42 L MPV 12.4 Immature Gran % (Auto) Neut % (Auto) Lymph % (Auto) [place] % (Auto) Eos % (Auto) Baso % (Auto) Lymph # (Auto) [place] # (Auto) Eos # (Auto) Baso # (Auto) Abs Immat Gran (auto) Absolute Neuts (auto) Absolute Nucleated RBC 0.000 Nucleated RBC % (auto) 0.0 Hold Purple Top PT INR APTT Sodium 135 Potassium 2.9 L D Chloride 102 Carbon Dioxide 22 Anion Gap 14 BUN 13 Creatinine 0.69 Estim Creat Clear Calc 110.4 Estimated GFR > 60 Random Glucose 99 Fasting Glucose Lactic Acid Calcium 8.6 Magnesium Iron TIBC % Saturation Unsat Iron Binding Total Bilirubin Direct Bilirubin AST ALT Alkaline Phosphatase Troponin I High Sens B-Natriuretic Peptide 331 H Total Protein Total Protein (PEP) Albumin Albumin (PEP) Jkqna-8-Cshgbsxzf Hmldo-2-Ldybakqji Keqk-9-Xthtiswl Aril-1-Wrsclygw Gamma Globulins Abnorm Protein Band 1 Abnorm Protein Band 2 Abnorm Protein Band 3 PEP Interpretation Lipase Vitamin B1 Vitamin B12 Folate Hold Green Top Urine Color Urine Appearance Urine pH Ur Specific [place] Urine Protein Urine Glucose (UA) Urine Ketones Urine Blood Urine Nitrite Ur Leukocyte Esterase Nasal Screen MRSA (PCR) Nasal S. aureus Screen Nasal MRSA/S.aureus Interp Stool Occult Blood Stl C. cayetanensis PCR Not Detected Stool Rotavirus A PCR Not Detected Stl Adenov F 40/41 PCR Not Detected Stool Astrovirus (PCR) Not Detected Stool Campylobacter PCR Not Detected Stool Cryptosporidium PCR Not Detected Stl Sh Tox Pr E STEC PCR Not Detected Stool E coli O157 PCR Not applicable Stl Enterotoxigenic E PCR Not Detected Stool EPEC (PCR) Not Detected Stool EAEC (PCR) Not Detected Stl E. histolytica PCR Not Detected Stool Giardia Lamblia PCR Not Detected Stl P. shigelloides PCR Not Detected Stool Salmonella PCR Not Detected Stool Sapovirus (PCR) Not Detected Stl Shigella/EIEC PCR Not Detected St Y.enterocolitica PCR Not Detected Stool Vibrio (PCR) Not Detected Stl Vibrio cholerae PCR Not Detected Stl Norovirus GI/GII PCR Not Detected Random Vancomycin Ethyl Alcohol Zinc IgG Total IgA Total IgM ALEXIS Interpretation Tiss Transglutamin IgG Tiss Transglutamin IgA Respiratory Panel Muhammad Adenovirus (Rapid PCR) B.pert (TEM-PCR) B.parapertussis DNA PCR C. pneumoniae DNA (PCR) C. difficile Tox B Gene INVALID C. difficile Toxin A&B C. difficile Interpret Coronavirus OC43 (PCR) Coronavirus HKU1 (PCR) Coronavirus 229E (PCR) COVID-19 (TAI) Negative COVID-19 Clin Com See Note Coronavirus NL63 (PCR) Hepatitis A IgM Ab Hep Bs Antigen Hep Bs Antibody Hep B Core Total Ab Hepatitis C Ab (EIA) Human Metapneumovir PCR Influenza A (RT-PCR) Influenza Type A (PCR) Influenza B (RT-PCR) Influenza Type B (PCR) M. pneumoniae (PCR) Parainfluenza 1 (PCR) Parainfluenza 2 (PCR) Parainfluenza 3 (PCR) Parainfluenza 4 (PCR) RSV (PCR) RSV RNA Qual (PCR) Entero/Rhino (PCR) SARS-CoV-2 RNA (RT-PCR) Blood Type Antibody Screen Crossmatch 08/07/23 08/07/23 08/07/23 07:51 08:40 10:30 WBC 6.2 RBC 2.43 L Hgb 8.2 L Hct 25.0 L MCV 102.9 H MCH 33.7 H MCHC 32.8 RDW 19.0 H Plt Count 36 L MPV 12.2 Immature Gran % (Auto) Neut % (Auto) Lymph % (Auto) [place] % (Auto) Eos % (Auto) Baso % (Auto) Lymph # (Auto) [place] # (Auto) Eos # (Auto) Baso # (Auto) Abs Immat Gran (auto) Absolute Neuts (auto) Absolute Nucleated RBC 0.000 Nucleated RBC % (auto) 0.0 Hold Purple Top PT INR APTT Sodium 137 Potassium 2.6 L Chloride 106 Carbon Dioxide 22 Anion Gap 12 BUN 16 Creatinine 0.79 Estim Creat Clear Calc 96.4 Estimated GFR > 60 Random Glucose 114 Fasting Glucose Lactic Acid Calcium 8.4 Magnesium 1.2 L* Iron TIBC % Saturation Unsat Iron Binding Total Bilirubin Direct Bilirubin AST ALT Alkaline Phosphatase Troponin I High Sens B-Natriuretic Peptide Total Protein Total Protein (PEP) Albumin Albumin (PEP) Jodqj-1-Ncdwyatyf Acxkw-4-Jornflter Mdws-5-Dzcqtyht Nswe-3-Gyzfobuf Gamma Globulins Abnorm Protein Band 1 Abnorm Protein Band 2 Abnorm Protein Band 3 PEP Interpretation Lipase Vitamin B1 Vitamin B12 Folate Hold Green Top Urine Color Urine Appearance Urine pH Ur Specific [place] Urine Protein Urine Glucose (UA) Urine Ketones Urine Blood Urine Nitrite Ur Leukocyte Esterase Nasal Screen MRSA (PCR) Nasal S. aureus Screen Nasal MRSA/S.aureus Interp Stool Occult Blood Stl C. cayetanensis PCR Stool Rotavirus A PCR Stl Adenov F 40/41 PCR Stool Astrovirus (PCR) Stool Campylobacter PCR Stool Cryptosporidium PCR Stl Sh Tox Pr E STEC PCR Stool E coli O157 PCR Stl Enterotoxigenic E PCR Stool EPEC (PCR) Stool EAEC (PCR) Stl E. histolytica PCR Stool Giardia Lamblia PCR Stl P. shigelloides PCR Stool Salmonella PCR Stool Sapovirus (PCR) Stl Shigella/EIEC PCR St Y.enterocolitica PCR Stool Vibrio (PCR) Stl Vibrio cholerae PCR Stl Norovirus GI/GII PCR Random Vancomycin Ethyl Alcohol Zinc IgG Total IgA Total IgM ALEXIS Interpretation Tiss Transglutamin IgG Tiss Transglutamin IgA Respiratory Panel Muhammad See Note Adenovirus (Rapid PCR) Not Detected B.pert (TEM-PCR) Not Detected B.parapertussis DNA PCR Not Detected C. pneumoniae DNA (PCR) Not Detected C. difficile Tox B Gene POSITIVE A* C. difficile Toxin A&B Positive A* C. difficile Interpret SEE NOTE Coronavirus OC43 (PCR) Not Detected Coronavirus HKU1 (PCR) Not Detected Coronavirus 229E (PCR) Not Detected COVID-19 (TAI) COVID-19 Clin Com Coronavirus NL63 (PCR) Not Detected Hepatitis A IgM Ab Hep Bs Antigen Hep Bs Antibody Hep B Core Total Ab Hepatitis C Ab (EIA) Human Metapneumovir PCR Not Detected Influenza A (RT-PCR) Not Detected Influenza Type A (PCR) Influenza B (RT-PCR) Not Detected Influenza Type B (PCR) M. pneumoniae (PCR) Not Detected Parainfluenza 1 (PCR) Not Detected Parainfluenza 2 (PCR) Not Detected Parainfluenza 3 (PCR) Not Detected Parainfluenza 4 (PCR) Not Detected RSV (PCR) Not Detected RSV RNA Qual (PCR) Entero/Rhino (PCR) Not Detected SARS-CoV-2 RNA (RT-PCR) Not Detected Blood Type Antibody Screen Crossmatch 08/07/23 08/08/23 08/08/23 18:53 07:14 09:36 WBC 5.0 RBC 2.23 L Hgb 7.5 L Hct 23.4 L MCV 104.9 H MCH 33.6 H MCHC 32.1 RDW 19.3 H Plt Count 35 L MPV 13.1 H Immature Gran % (Auto) Neut % (Auto) Lymph % (Auto) [place] % (Auto) Eos % (Auto) Baso % (Auto) Lymph # (Auto) [place] # (Auto) Eos # (Auto) Baso # (Auto) Abs Immat Gran (auto) Absolute Neuts (auto) Absolute Nucleated RBC 0.000 Nucleated RBC % (auto) 0.0 Hold Purple Top PT 33.2 H D INR 2.7 H APTT Sodium 138 Potassium 3.1 L Chloride 108 Carbon Dioxide 20 L Anion Gap 13 BUN 22 H Creatinine 0.84 Estim Creat Clear Calc 90.7 Estimated GFR > 60 Random Glucose 112 Fasting Glucose Lactic Acid Calcium 8.8 Magnesium Iron TIBC % Saturation Unsat Iron Binding Total Bilirubin 2.6 H Direct Bilirubin 1.3 H AST 20 ALT 7 Alkaline Phosphatase 29 L Troponin I High Sens B-Natriuretic Peptide 786 H Total Protein 7.3 Total Protein (PEP) Albumin 3.5 Albumin (PEP) Ewupn-4-Xtxhpbiet Fxxfa-2-Tzkdmqgtw Opcg-1-Sqrmvmmv Nndb-4-Rzuptivs Gamma Globulins Abnorm Protein Band 1 Abnorm Protein Band 2 Abnorm Protein Band 3 PEP Interpretation Lipase Vitamin B1 Vitamin B12 Folate Hold Green Top Urine Color Urine Appearance Urine pH Ur Specific [place] Urine Protein Urine Glucose (UA) Urine Ketones Urine Blood Urine Nitrite Ur Leukocyte Esterase Nasal Screen MRSA (PCR) Nasal S. aureus Screen Nasal MRSA/S.aureus Interp Stool Occult Blood Stl C. cayetanensis PCR Stool Rotavirus A PCR Stl Adenov F 40/41 PCR Stool Astrovirus (PCR) Stool Campylobacter PCR Stool Cryptosporidium PCR Stl Sh Tox Pr E STEC PCR Stool E coli O157 PCR Stl Enterotoxigenic E PCR Stool EPEC (PCR) Stool EAEC (PCR) Stl E. histolytica PCR Stool Giardia Lamblia PCR Stl P. shigelloides PCR Stool Salmonella PCR Stool Sapovirus (PCR) Stl Shigella/EIEC PCR St Y.enterocolitica PCR Stool Vibrio (PCR) Stl Vibrio cholerae PCR Stl Norovirus GI/GII PCR Random Vancomycin 27.4 H* 16.8 Ethyl Alcohol Zinc IgG Total IgA Total IgM ALEXIS Interpretation Tiss Transglutamin IgG Tiss Transglutamin IgA Respiratory Panel Muhammad Adenovirus (Rapid PCR) B.pert (TEM-PCR) B.parapertussis DNA PCR C. pneumoniae DNA (PCR) C. difficile Tox B Gene C. difficile Toxin A&B C. difficile Interpret Coronavirus OC43 (PCR) Coronavirus HKU1 (PCR) Coronavirus 229E (PCR) COVID-19 (TAI) COVID-19 Clin Com Coronavirus NL63 (PCR) Hepatitis A IgM Ab Hep Bs Antigen Hep Bs Antibody Hep B Core Total Ab Hepatitis C Ab (EIA) Human Metapneumovir PCR Influenza A (RT-PCR) Influenza Type A (PCR) Influenza B (RT-PCR) Influenza Type B (PCR) M. pneumoniae (PCR) Parainfluenza 1 (PCR) Parainfluenza 2 (PCR) Parainfluenza 3 (PCR) Parainfluenza 4 (PCR) RSV (PCR) RSV RNA Qual (PCR) Entero/Rhino (PCR) SARS-CoV-2 RNA (RT-PCR) Blood Type B Positive Antibody Screen NEGATIVE Crossmatch See Detail 08/09/23 08/09/23 08/09/23 05:15 06:19 06:59 WBC 5.1 RBC 2.59 L Hgb 8.9 L Hct 26.4 L MCV 101.9 H MCH 34.4 H MCHC 33.7 RDW 20.4 H Plt Count 48 L D MPV 12.1 Immature Gran % (Auto) Neut % (Auto) Lymph % (Auto) [place] % (Auto) Eos % (Auto) Baso % (Auto) Lymph # (Auto) [place] # (Auto) Eos # (Auto) Baso # (Auto) Abs Immat Gran (auto) Absolute Neuts (auto) Absolute Nucleated RBC 0.000 Nucleated RBC % (auto) 0.0 Hold Purple Top PT 27.6 H INR 2.3 H APTT Sodium 137 Potassium 2.8 L Chloride 107 Carbon Dioxide 23 Anion Gap 10 L BUN 22 H Creatinine 0.79 Estim Creat Clear Calc 96.4 Estimated GFR > 60 Random Glucose 96 Fasting Glucose Lactic Acid Calcium 8.7 Magnesium Iron TIBC % Saturation Unsat Iron Binding Total Bilirubin Direct Bilirubin AST ALT Alkaline Phosphatase Troponin I High Sens B-Natriuretic Peptide Total Protein Total Protein (PEP) Albumin Albumin (PEP) Wzzuw-6-Danirmgkp Xfolo-4-Ecbwudyzv Focq-2-Heedrjwl Cthx-9-Zkluofvt Gamma Globulins Abnorm Protein Band 1 Abnorm Protein Band 2 Abnorm Protein Band 3 PEP Interpretation Lipase Vitamin B1 Vitamin B12 Folate Hold Green Top Urine Color Urine Appearance Urine pH Ur Specific [place] Urine Protein Urine Glucose (UA) Urine Ketones Urine Blood Urine Nitrite Ur Leukocyte Esterase Nasal Screen MRSA (PCR) NEGATIVE Nasal S. aureus Screen NEGATIVE Nasal MRSA/S.aureus Interp SEE NOTE Stool Occult Blood Stl C. cayetanensis PCR Stool Rotavirus A PCR Stl Adenov F 40/41 PCR Stool Astrovirus (PCR) Stool Campylobacter PCR Stool Cryptosporidium PCR Stl Sh Tox Pr E STEC PCR Stool E coli O157 PCR Stl Enterotoxigenic E PCR Stool EPEC (PCR) Stool EAEC (PCR) Stl E. histolytica PCR Stool Giardia Lamblia PCR Stl P. shigelloides PCR Stool Salmonella PCR Stool Sapovirus (PCR) Stl Shigella/EIEC PCR St Y.enterocolitica PCR Stool Vibrio (PCR) Stl Vibrio cholerae PCR Stl Norovirus GI/GII PCR Random Vancomycin 19.1 Ethyl Alcohol Zinc IgG Total IgA Total IgM ALEXIS Interpretation Tiss Transglutamin IgG Tiss Transglutamin IgA Respiratory Panel Muhammad Adenovirus (Rapid PCR) B.pert (TEM-PCR) B.parapertussis DNA PCR C. pneumoniae DNA (PCR) C. difficile Tox B Gene C. difficile Toxin A&B C. difficile Interpret Coronavirus OC43 (PCR) Coronavirus HKU1 (PCR) Coronavirus 229E (PCR) COVID-19 (TIA) COVID-19 Clin Com Coronavirus NL63 (PCR) Hepatitis A IgM Ab Hep Bs Antigen Hep Bs Antibody Hep B Core Total Ab Hepatitis C Ab (EIA) Human Metapneumovir PCR Influenza A (RT-PCR) Influenza Type A (PCR) Influenza B (RT-PCR) Influenza Type B (PCR) M. pneumoniae (PCR) Parainfluenza 1 (PCR) Parainfluenza 2 (PCR) Parainfluenza 3 (PCR) Parainfluenza 4 (PCR) RSV (PCR) RSV RNA Qual (PCR) Entero/Rhino (PCR) SARS-CoV-2 RNA (RT-PCR) Blood Type Antibody Screen Crossmatch 08/10/23 08/11/23 08/14/23 06:13 04:42 05:32 WBC 4.2 L 4.1 L RBC 2.69 L 2.64 L Hgb 9.0 L 9.1 L Hct 27.3 L 27.2 L MCV 101.5 H 103.0 H MCH 33.5 H 34.5 H MCHC 33.0 33.5 RDW 19.0 H 18.5 H Plt Count 68 L D 79 L MPV 11.9 12.0 Immature Gran % (Auto) Neut % (Auto) Lymph % (Auto) [place] [place] % (Auto) Eos % (Auto) Baso % (Auto) Lymph # (Auto) [place] # (Auto) Eos # (Auto) Baso # (Auto) Abs Immat Gran (auto) Absolute Neuts (auto) Absolute Nucleated RBC 0.000 0.000 Nucleated RBC % (auto) 0.0 0.0 Hold Purple Top PT INR APTT Sodium 139 139 137 Potassium 3.1 L 3.5 4.2 Chloride 110 H 111 H 108 Carbon Dioxide 21 L 19 L 19 L Anion Gap 11 L 13 14 BUN 14 9 9 Creatinine 0.67 0.57 0.63 Estim Creat Clear Calc 113.7 133.6 120.9 Estimated GFR > 60 > 60 > 60 Random Glucose Fasting Glucose 103 H 92 83 Lactic Acid Calcium 8.8 8.8 9.5 D Magnesium 1.5 L 1.5 L Iron TIBC % Saturation Unsat Iron Binding Total Bilirubin 2.2 H Direct Bilirubin 1.0 H AST 24 ALT 6 Alkaline Phosphatase 84 Troponin I High Sens B-Natriuretic Peptide Total Protein 6.9 Total Protein (PEP) Albumin 3.0 L Albumin (PEP) Mixts-5-Ogupvujcy Smuiy-3-Qdzohguzo Fvhx-3-Tgsrczet Xysw-8-Scjfzody Gamma Globulins Abnorm Protein Band 1 Abnorm Protein Band 2 Abnorm Protein Band 3 PEP Interpretation Lipase Vitamin B1 Vitamin B12 Folate Hold Green Top Urine Color Urine Appearance Urine pH Ur Specific [place] Urine Protein Urine Glucose (UA) Urine Ketones Urine Blood Urine Nitrite Ur Leukocyte Esterase Nasal Screen MRSA (PCR) Nasal S. aureus Screen Nasal MRSA/S.aureus Interp Stool Occult Blood Stl C. cayetanensis PCR Stool Rotavirus A PCR Stl Adenov F 40/41 PCR Stool Astrovirus (PCR) Stool Campylobacter PCR Stool Cryptosporidium PCR Stl Sh Tox Pr E STEC PCR Stool E coli O157 PCR Stl Enterotoxigenic E PCR Stool EPEC (PCR) Stool EAEC (PCR) Stl E. histolytica PCR Stool Giardia Lamblia PCR Stl P. shigelloides PCR Stool Salmonella PCR Stool Sapovirus (PCR) Stl Shigella/EIEC PCR St Y.enterocolitica PCR Stool Vibrio (PCR) Stl Vibrio cholerae PCR Stl Norovirus GI/GII PCR Random Vancomycin Ethyl Alcohol Zinc IgG Total IgA Total IgM ALEXIS Interpretation Tiss Transglutamin IgG Tiss Transglutamin IgA Respiratory Panel Muhammad Adenovirus (Rapid PCR) B.pert (TEM-PCR) B.parapertussis DNA PCR C. pneumoniae DNA (PCR) C. difficile Tox B Gene C. difficile Toxin A&B C. difficile Interpret Coronavirus OC43 (PCR) Coronavirus HKU1 (PCR) Coronavirus 229E (PCR) COVID-19 (TAI) COVID-19 Clin Com Coronavirus NL63 (PCR) Hepatitis A IgM Ab Hep Bs Antigen Hep Bs Antibody Hep B Core Total Ab Hepatitis C Ab (EIA) Human Metapneumovir PCR Influenza A (RT-PCR) Influenza Type A (PCR) Influenza B (RT-PCR) Influenza Type B (PCR) M. pneumoniae (PCR) Parainfluenza 1 (PCR) Parainfluenza 2 (PCR) Parainfluenza 3 (PCR) Parainfluenza 4 (PCR) RSV (PCR) RSV RNA Qual (PCR) Entero/Rhino (PCR) SARS-CoV-2 RNA (RT-PCR) Blood Type Antibody Screen Crossmatch 08/14/23 10:26 WBC RBC Hgb Hct MCV MCH MCHC RDW Plt Count MPV Immature Gran % (Auto) Neut % (Auto) Lymph % (Auto) [place] % (Auto) Eos % (Auto) Baso % (Auto) Lymph # (Auto) [place] # (Auto) Eos # (Auto) Baso # (Auto) Abs Immat Gran (auto) Absolute Neuts (auto) Absolute Nucleated RBC Nucleated RBC % (auto) Hold Purple Top PT 27.9 H INR 2.3 H APTT Sodium Potassium Chloride Carbon Dioxide Anion Gap BUN Creatinine Estim Creat Clear Calc Estimated GFR Random Glucose Fasting Glucose Lactic Acid Calcium Magnesium Iron TIBC % Saturation Unsat Iron Binding Total Bilirubin Direct Bilirubin AST ALT Alkaline Phosphatase Troponin I High Sens B-Natriuretic Peptide Total Protein Total Protein (PEP) Albumin Albumin (PEP) Imvny-4-Fhkhilhfu Cqopw-9-Cvwppdniw Bidb-4-Xxynqxwx Nlsv-6-Ulotljbh Gamma Globulins Abnorm Protein Band 1 Abnorm Protein Band 2 Abnorm Protein Band 3 PEP Interpretation Lipase Vitamin B1 Vitamin B12 Folate Hold Green Top Urine Color Urine Appearance Urine pH Ur Specific [place] Urine Protein Urine Glucose (UA) Urine Ketones Urine Blood Urine Nitrite Ur Leukocyte Esterase Nasal Screen MRSA (PCR) Nasal S. aureus Screen Nasal MRSA/S.aureus Interp Stool Occult Blood Stl C. cayetanensis PCR Stool Rotavirus A PCR Stl Adenov F 40/41 PCR Stool Astrovirus (PCR) Stool Campylobacter PCR Stool Cryptosporidium PCR Stl Sh Tox Pr E STEC PCR Stool E coli O157 PCR Stl Enterotoxigenic E PCR Stool EPEC (PCR) Stool EAEC (PCR) Stl E. histolytica PCR Stool Giardia Lamblia PCR Stl P. shigelloides PCR Stool Salmonella PCR Stool Sapovirus (PCR) Stl Shigella/EIEC PCR St Y.enterocolitica PCR Stool Vibrio (PCR) Stl Vibrio cholerae PCR Stl Norovirus GI/GII PCR Random Vancomycin Ethyl Alcohol Zinc IgG Total IgA Total IgM ALEXIS Interpretation Tiss Transglutamin IgG Tiss Transglutamin IgA Respiratory Panel Muhammad Adenovirus (Rapid PCR) B.pert (TEM-PCR) B.parapertussis DNA PCR C. pneumoniae DNA (PCR) C. difficile Tox B Gene C. difficile Toxin A&B C. difficile Interpret Coronavirus OC43 (PCR) Coronavirus HKU1 (PCR) Coronavirus 229E (PCR) COVID-19 (TAI) COVID-19 Clin Com Coronavirus NL63 (PCR) Hepatitis A IgM Ab Hep Bs Antigen Hep Bs Antibody Hep B Core Total Ab Hepatitis C Ab (EIA) Human Metapneumovir PCR Influenza A (RT-PCR) Influenza Type A (PCR) Influenza B (RT-PCR) Influenza Type B (PCR) M. pneumoniae (PCR) Parainfluenza 1 (PCR) Parainfluenza 2 (PCR) Parainfluenza 3 (PCR) Parainfluenza 4 (PCR) RSV (PCR) RSV RNA Qual (PCR) Entero/Rhino (PCR) SARS-CoV-2 RNA (RT-PCR) Blood Type Antibody Screen Crossmatch Airway Mallampati Class: II TM Dist: >3cm Neck ROM: Limited Heart: rrr Lungs: diminished bilateral bs Assessment and Plan Assessment Anesthesia Assessment: Anesthesia Plan Discussed Final Anesthetic Review Family History of Problems with Anesthesia: No History of Problems with Anesthesia: No NPO: Yes ASA Class: IV Final Preanesthetic Review: No Changes in Pt Med Stat, Meds/Allgs Chart Reviewed, Consent Obtained/Reviewed and Anes Risks/Benef Reviewed Patient Risk: High Procedure Risk: Intermediate Anesthetic Plan Anesthetic Plan: GA and Agree w/ Assess. and Plan Disposition: Standard PACU
--- NOTE | 2023-08-14 13:20 | P.OP_ITS ---
Operative Note Operative Note Date of Service: 08/14/23 Narrative: Operative Information Procedure Description: EGD, Colonoscopy Indication: anemia Anesthesia: MAC FLEXIBLE TRANSORAL UPPER GASTROINTESTINAL ENDOSCOPY AND COLONOSCOPY PROCEDURE NOTE UPPER ENDOSCOPY Consent: Indications for the procedure and potential complications of bleeding, perforation, reaction to medications and missed diagnosis were discussed with the patient and informed consent was obtained. Instrument: Olympus GIF H 190 J mid size upper endoscope Monitoring: Vital signs and clinical assessment, continuous EKG monitoring, Pulse oximetry, Carbon Dioxide monitoring and blood pressure monitoring were done throughout the procedure. Procedure: The patient was placed in the left lateral decubitis position and pre-procedure medications were administered and a bite block was placed. The endoscope was inserted into the mouth and advanced under direct vision to the third part of duodenum. A careful inspection was made as the upper endoscope was withdrawn including a retroflexed examination of the proximal stomach; Findings and interventions are described below. Findings: Larynx:normal Esophagus: GE junction at 40 cm, diaphragm hiatus at 40 cm, x 2 variceal cords grade II, no red stroud, x 3 bands applied with good collapse Stomach: Mosaic pattern consistent with portal hypertensive gastropathy. Grade 2 flap valve on retroflexed examination of the cardia. Duodenum: Normal bulb and descending duodenum, Intervention: Banding of varices COLONOSCOPY Instrument: Olympus variable stiffness pediatric scope 190L Colonoscopy Monitoring: Vital signs and clinical assessment, continuous EKG monitoring, Pulse oximetry, Carbon Dioxide monitoring and blood pressure monitoring were done throughout the procedure. Colon withdrawal time was 15 minutes. Procedure: The patient was placed in the left lateral decubitis position and pre-procedure medications were administered. After a digital rectal examination of the ano-rectum, the video colonoscope was inserted into the rectum and advanced through the colon to the cecum/TI. The colonoscope was slowly withdrawn in a retrograde panoramic fashion and the colon mucosa was carefully examined including a retroflexed view of the rectum. Findings and interventions are described below. Procedure Difficulty:moderate Findings: Terminal Ileum-not intubated Cecum:normal Ascending Colon: 8-10 sessile polyp removed with cold snare and x 2 clips applied along with hemospray for hemostasis Transverse Colon -normal Descending Colon: 8-10 sessile polyp removed with cold snare and x 2 clips applied along with hemospray for hemostasis Sigmoid Colon: normal Rectum: Retroflexion not done, forward view with small to moderate sized interna l hemorrhoids, grade I Anorectum - normal Colon preparation: [place] Bowel Preparation Scale Right colon; 1-2 Transverse colon: 2 Left colon; 1-2 (0 = Unprepared colon segment with mucosa not seen due to solid stool that cannot be cleared. 1 = Portion of mucosa of the colon segment seen, but other areas of the colon segment not well seen due to staining, residual stool and/or opaque liquid. 2 = Minor amount of residual staining, small fragments of stool and/or opaque liquid, but mucosa of colon segment seen well. 3 = Entire mucosa of colon segment seen well with no residual staining, small fragments of stool or opaque liquid) Impression and Post Procedure Diagnosis: Endoscopy Findings: esophageal variceal portal hypertensive gastropathy Colonoscopy Findings: polyps internal hemorrhoids Plan: Await Pathology results Repeat Colonoscopy in 1-2 years or earlier if clinically indicated High fiber diet leaflet avoid straining at stool, epsom salts and sitz bath, anusol supps or cream carafate for 2 weeks and PPI repeat EGD in 4-6 weeks Above findings were reviewed with the patient and relevant handouts were provided if indicated.
--- NOTE | 2023-08-14 13:20 | MHC.SHP ---
Pre-Procedural Eval Section A Date of Service: 08/14/23 The patient is an INPATIENT: Yes The History & Physical has been completed within 30 days and I have reviewed it.: Yes Section B Chief Complaint: Alcoholic,edema,symptomatic anemia Allergies: Allergies Allergy/AdvReac Type Severity Reaction Status Date / Time No Known Allergies Allergy Verified 06/24/23 18:44 [No Known Allergies*] Plan Diagnosis/Plan: Unchanged I have reviewed the history and physical and performed a pertinent physical examination on my patient. No changes have occurred unless specified. Time Spent With Patient Time: Total time managing care of this patient today ____ minutes.
[2023-08-14] MEDS: ondansetron HCL 4 MG/2 ML VIAL IVPUSH (14:42)
[2023-08-14] MEDS: vancomycin HCL 125 MG CAPSULE PO ×2 (15:34→19:59)
[2023-08-14] MEDS: Omeprazole 40 MG CAPSULE.DR PO (15:58)
[2023-08-15] MEDS: Doxycycline Hyclate 100 MG in 0.9 % Sodium Chloride 250 ML 166.67 MG IV (03:04)
[2023-08-15] MEDS: vancomycin HCL 125 MG CAPSULE PO ×4 (03:04→21:50)
[2023-08-15 04:00] VITALS: BP 110/56; PULSE 86; RESP 16; TEMP 37; O2SAT 92
[2023-08-15] MEDS: Omeprazole 40 MG CAPSULE.DR PO ×2 (05:35→17:23)
[2023-08-15 05:41] LABS: Hematocrit 27.4 % (42.0-52.0); Mean Corpuscular HGB Conc 32.8 g/dl (31.0-36.0); Mean Corpuscular Hemoglobin 34.2 pg (27.0-33.0); Mean Corpuscular Volume 104.2 fL (80.0-98.0); Red Blood Count 2.63 X10*6/uL (4.60-5.80); Red Cell Distribution Width 18.1 % (11.0-16.0); White Blood Count 3.8 X10*3/uL (4.8-10.8)
[2023-08-15 05:42] LABS: Platelet Count 76 X10*3/uL (160-400)
[2023-08-15 06:00] LABS: Anion Gap 12 (12-20); Blood Urea Nitrogen 8 mg/dL (9-16); Calcium 9.6 mg/dL (8.4-10.2); Carbon Dioxide 20 mmol/L (22-29); Chloride 111 mmol/L (96-108); Estimated Glomerular Filt Rate > 60; Glucose Fasting 79 mg/dL (60-99); Potassium 4.1 mmol/L (3.3-5.1); Sodium 139 mmol/L (135-145)
--- NOTE | 2023-08-15 07:55 | HE.PHANOTE ---
RE: doxycycline IV to PO Messaged Dr. Baker 08/15 @[id number] regarding patient's IV doxycycline, pt is afebrile, tolerating PO medications, and has decreased WBCs. Switched from IV doxycycline 100mg Q12H to PO doxycycline 100mg Q12H to be started today at 1600
[2023-08-15 08:00] VITALS: BP 107/54; PULSE 80; RESP 20; TEMP 37.2; O2SAT 95
--- NOTE | 2023-08-15 08:53 | HO.PM.IMPN ---
Subjective Subjective Date of Service: 08/15/23 Interval History: tired Physical Exam Vital Signs: Vital Signs: Last Vital Signs Temp 99.0 F 08/15/23 08:00 Pulse 80 08/15/23 08:00 Resp 20 08/15/23 08:00 BP 107/54 L 08/15/23 08:00 Pulse Ox 95 08/15/23 08:00 O2 Del Method Nasal Cannula 08/15/23 08:00 O2 Flow Rate 2 08/15/23 08:00 BMI result Body Mass Index 23.5 General: AO X 3, no acute distress Resp: diminished bilateral, no accessory muscles used CVS: S1,S2,RRR GI: soft, non tender, distended Neuro: motor grossly intact, alert Psych: appropriate affect, appropriate insight Objective Data Active Medications Acetaminophen (Acetaminophen 325 Mg Tablet) 650 mg PO Q6H PRN PRN Reason: Fever >101 Last Admin: 08/07/23 15:39 Dose: 650 mg Documented By: JOCELYN Diphenhydramine HCl (Diphenhydramine Hcl 50 Mg/Ml Vial) 25 mg IVPUSH Q6H PRN PRN Reason: Itching Last Admin: 08/08/23 21:35 Dose: 25 mg Documented By: YOSELYN Doxycycline Monohydrate (Doxycycline Monohydrate 100 Mg Capsule) 100 mg PO Q12H [facility] Fentanyl (Fentanyl Citrate/Pf 100 Mcg/2 Ml Vial) 25 mcg IVPUSH Q5M PRN; Protocol PRN Reason: Pain, Moderate(Pain Scale 4-6) Folic Acid (Folic Acid 1 Mg Tablet) 1 mg PO DAILY [facility] Last Admin: 08/14/23 08:54 Dose: Not Given Documented By: KALI Non-Admin Reason: NPO Magnesium Oxide (Magnesium Oxide 400 Mg Tablet) 800 mg PO DAILY [facility] Last Admin: 08/14/23 08:54 Dose: Not Given Documented By: KALI Non-Admin Reason: NPO Omeprazole (Omeprazole 40 Mg Capsule.) 40 mg PO BID@0630,1630 [facility] Last Admin: 08/15/23 05:35 Dose: 40 mg Documented By: MINDA Ondansetron HCl (Ondansetron Hcl 4 Mg/2 Ml Vial) 4 mg IVPUSH Q8H PRN PRN Reason: Nausea and Vomiting Pharmacy Consult (Consult Rx Etoh Phenob Im/Po) 1 each MISCELLANE ONCE PRN; Protocol PRN Reason: Consult order Pharmacy Consult (Consult Rx Vancomycin Dosing) 1 each MISCELLANE DAILY PRN PRN Reason: Consult order Phenobarbital Sodium (Phenobarbital Sodium 130 Mg/Ml Vial) 130 mg IM ONCE PRN PRN Reason: Alcohol Withdrawal Sodium Chloride (0.9 % Sodium Chloride Flush 3 Ml Syringe) 3 ml IVFLUSH QSHIFT [facility] Last Admin: 08/14/23 19:59 Dose: 3 ml Documented By: MINDA Thiamine HCl (Thiamine Hcl 100 Mg Tablet) 100 mg PO DAILY [facility] Last Admin: 08/14/23 08:54 Dose: Not Given Documented By: KALI Non-Admin Reason: NPO Vancomycin HCl (Vancomycin Hcl 125 Mg Capsule) 125 mg PO Q6H [facility] Last Admin: 08/15/23 03:04 Dose: 125 mg Documented By: MINDA Labs 08/15/23 05:26 08/15/23 05:26 Labs: Laboratory Results - last 24 hr 08/08/23 08/14/23 08/15/23 09:36 10:26 05:26 MCV 104.2 H MCH 34.2 H MCHC 32.8 RDW 18.1 H Plt Count 76 L MPV 11.0 Absolute Nucleated RBC 0.000 Nucleated RBC % (auto) 0.0 PT 27.9 H INR 2.3 H Anion Gap 12 Estim Creat Clear Calc 119.0 Estimated GFR > 60 Fasting Glucose 79 Calcium 9.6 Blood Type B Positive B Positive Antibody Screen NEGATIVE POSITIVE Antibody Identification Inconclusive ELLIOT, Polyspecific NEGATIVE Positive ELLIOT Work-up TNP Crossmatch See Detail Crossmatch (AHG) See Detail Assessment and Plan (1) Aspiration pneumonia: Status: Acute (2) Colitis: Status: Acute (3) Clostridioides difficile infection: Status: Acute (4) Hypomagnesemia: Status: Acute (5) Sepsis: Status: Acute Plan A 53 years old male with PMH of etoh dependence, chronic liver disease, chronic diastolic CHF among others who presented to the hospital by EMS for nose bleed and LE edema. Sepsis 2\[address] showing pancolitis with possible vascular compromise and mod ascites. Also findings of portal hypertension Continue oral Vancomycin day 07/27 diarrhea resolved Acute hypoxic respiratory failure 2/2 Pneumonia completed doxy was placed back on o2, wean as tolerated acute on chronic diastoloic exacerbation Elevated BNP, CXR showing edema , effusion and mod ascites overall improved hypokalemia replaced Symptomatic anemia 2/2 acute on chronic blood loss could be 2/2 GI or epistaxis loss and alcoholism, reporting epsitaxis once overnight Hb dropped to 7.6, had 3 prbc, Platelets and FFP as well, now stable around 9 -ve occult stool egd/colonoscopy 08/14/23 - varices banded, polyps hemorrhoids, portal hypertensive gastropathy monitor for epistaxis Elevated INR due to cirrhosis given Vit K, minimal improvement etoh dependence with cirrhosis and withdrawal completed phenobarb acute hypomagnesemia given replacement chronic thrombocytopenia 2\2 cirrhosis DVT PPx SCDs due to thrombocytopenia, anemia reason for continued hospitalization:hypoxia Time Spent With Patient Time: Total time managing care of this patient today ____ minutes. Quality Stroke Does the patient have a stroke diagnosis?: No VTE Prior VTE?: No VTE Risk Level:: Medical - moderate - high VTE Device Contraindication: N/A - Device Ordered VTE Drug Contraindication: Treatment Not Indicated
[2023-08-15] MEDS: Folic Acid 1 MG TABLET PO (08:59)
[2023-08-15] MEDS: Magnesium Oxide 400 MG TABLET 800 MG PO (08:59)
[2023-08-15] MEDS: 0.9 % Sodium Chloride Flush 3 ML SYRINGE IVFLUSH ×3 (08:59→21:50)
[2023-08-15] MEDS: Thiamine HCL 100 MG TABLET PO (08:59)
[2023-08-15 12:05] VITALS: O2SAT 95
[2023-08-15] MEDS: Furosemide 20 MG/2 ML VIAL IVPUSH (12:15)
[2023-08-15] MEDS: Acetaminophen 325 MG TABLET 650 MG PO (14:13)
[2023-08-15 14:35] VITALS: O2SAT 95
[2023-08-15 15:47] VITALS: BP 91/46; PULSE 90; RESP 20; TEMP 36.9; O2SAT 94
[2023-08-15 20:00] VITALS: BP 108/63; PULSE 97; RESP 18; TEMP 36.1; O2SAT 93
[2023-08-16] MEDS: vancomycin HCL 125 MG CAPSULE PO ×2 (02:23→09:17)
[2023-08-16 03:30] VITALS: BP 108/55; PULSE 96; RESP 18; TEMP 36.9; O2SAT 94
[2023-08-16] MEDS: Omeprazole 40 MG CAPSULE.DR PO (06:15)
--- NOTE | 2023-08-16 06:56 | HO.POSTANES ---
Post Anesthesia Evaluation Post Anesthesia Evaluation Date of Service: 08/16/23 Vital Signs: Vital Signs Temp Pulse Resp BP Pulse Ox O2 Del Method 08/16/23 03:30 98.5 F 96 18 108/55 L 94 Room Air 08/15/23 20:00 96.9 F 97 18 108/63 93 Room Air Anesthesia: General Endotracheal-GETA Mental Status: Awake Pain Control: Satisfactory Nausea/Vomiting: None Hydration: Adequate Anesthesia-Related Issues: No Anes. Related Issues
[2023-08-16 07:06] VITALS: BP 106/60; PULSE 92; RESP 16; TEMP 37.1; O2SAT 94
[2023-08-16] MEDS: Thiamine HCL 100 MG TABLET PO (09:17)
[2023-08-16] MEDS: Furosemide 20 MG/2 ML VIAL IVPUSH (09:17)
[2023-08-16] MEDS: Magnesium Oxide 400 MG TABLET 800 MG PO (09:17)
[2023-08-16] MEDS: 0.9 % Sodium Chloride Flush 3 ML SYRINGE IVFLUSH (09:17)
[2023-08-16] MEDS: Folic Acid 1 MG TABLET PO (09:17)
--- NOTE | 2023-08-16 10:24 | P.DS_ITS ---
DS: Providers Provider Date of Service: 08/16/23 Date of admission: 08/03/23 17:50 Primary care physician: Unknown Physician Consults: 08/03/23 17:55 Consult to Gastroenterology Routine Consulting Provider: Frannie Rose Reason for consultation: Symptomatic anemia, alcoholism 08/03/23 18:29 Addiction Medicine Routine Consulting Provider: Addiction Covering Reason for consultation: alcoholism 08/07/23 07:42 Consult to Infectious Diseases Routine Consulting Provider: [facility] [place] Infectious Disease Reason for consultation: Fever, Hypoxia, Abd pain 08/07/23 14:41 Consult to General Surgery Routine Consulting Provider: [facility] [place] General Surgeons Reason for consultation: C.Diff Pancolitis, GB wall thickening and edema, for eval and rec. DS: Diagnosis Discharge Diagnosis (1) Aspiration pneumonia: Status: Acute (2) Colitis: Status: Acute (3) Clostridioides difficile infection: Status: Acute (4) Hypomagnesemia: Status: Acute (5) Sepsis: Status: Acute (6) Acute on chronic blood loss anemia: Status: Acute (7) CHF (congestive heart failure): Status: Acute (8) Alcohol withdrawal syndrome: Status: Acute DS: Summary Hospital Course Hospital Course: The patient had prolonged hospital stay. for full details please return to EMR. Admission note HPI A 53 years old male with PMH of Alcoholism, chronic liver disease, CHF among others who presents to the hospital by EMS for nose bleed and LE edema. The patient was found at the side of the road, intoxicated complaining of 2 episodes of nose bleed with worsening edema in his lower extremities. he reports not having his medicaitons for a while now. Denies any fever, chills, chest pain, abdominal pain, nausea, vomiting or diarrhea but reports that he is feeling weaker and getting SOB with exertion. denies any change in stool color or bleeding per rectum but reports nasal bleed for 2 times today. Found to have elevated BNP with drop in Hb to 6.5. transfused 1 unit of blood and admitted for further evaluation. Hospital course Sepsis 2\[address] showing pancolitis with possible vascular compromise and mod ascites. tested postive for CDiff. Treated with Vancomycin as diarrhea resolved. To finish 14 days of PO Vancomycin on discharge. Pneumonia Treated with IV antibiotics and finished Doxycycline course. Weaned off oxygen. # acute on chronic diastoloic exacerbation with elevated BNP, CXR showing edema , effusion and mod ascites. Treated with IV lasix with good response. To be discharged on Lasix 20 mg daily. Weaned off O2 and was able to ambulate on room air with no reported dyspnea. # Symptomatic anemia 2/2 acute on chronic blood loss which believed to be secondary to GI or epistaxis loss and alcoholism. Hb dropped to 7.6, had 3 prbc, Platelets and FFP as well with good response. egd/colonoscopy 08/14/23 - varices banded, polyps hemorrhoids, portal hypertensive gastropathy. # Elevated INR due to cirrhosis given Vit K with minimal improvement # etoh dependence with cirrhosis and withdrawal completed phenobarb protocol and advised complete abstinence from Alcohol. Hepatospleenomegaly with concern over hepatic steatosis and cirrhosis. # acute hypomagnesemia given replacement and will be discharged on PO supplement Start Lasix 20 mg daily along with Folic acid and thiamine supplement Finish 5 more days of Vancomycin' Omeprazole daily for stomach protection We advise you complete abstinence from alcohol Time Spent with Patient Time attestation: Total time managing care of this patient today ____ minutes. Discharge coordination time: Greater than 30 minutes Quality: Safe Use of Opioids Does Pt have an Active Cancer Diagnosis on the Problem List?: No Quality: Stroke Does the patient have a stroke diagnosis?: No Physical Exam Vital Signs: Vital Signs: Last Vital Signs Temp 98.8 F 08/16/23 07:06 Pulse 92 08/16/23 07:06 Resp 16 08/16/23 07:06 BP 106/60 08/16/23 07:06 Pulse Ox 94 08/16/23 07:06 O2 Del Method Room Air 08/16/23 07:06 O2 Flow Rate 1 08/15/23 15:47 Oxygen Flow Rate 1 08/15/23 14:35 BMI result Body Mass Index 23.5 Const: Other: Constitutional : Awake, interactive, not in distress Neck : Normal inspection, Supple Cardiovascular : RRR, no JVP, Trace lower extremity edema Respiratory : good bilateral air entry, no crackles Gastrointestinal: soft, lax, Normal bowel sounds, no tenderness Skin : Warm, Dry Neurological : Alert & oriented to self, No focal deficit DS: Data Data Completed and Pending Completed studies during hospitalization [Text1]: Pending at discharge 08/14/23 14:15 Surgical [PTH] Routine Procedures Detoxification Services for Substance Abuse Treatment (06/08/23) Drainage of Peritoneal Cavity, Percutaneous Approach (06/24/23) Transfusion of Nonautologous Red Blood Cells into Peripheral Vein, Percutaneous Approach (06/08/23) Imaging CT scan - abdomen: Radiologist's impression: ITS Impressions Chest X-Ray 08/03/23 15:25 IMPRESSION: Given the history findings would be most consistent with CHF. Small bilateral effusions Chest X-Ray 08/05/23 08:28 IMPRESSION: * Prominence of the pulmonary vasculature. * Diffuse interstitial opacification concerning for possible interstitial edema, in the right clinical setting, cannot rule out underlying superimposed infiltrates. * Blunting of costophrenic angle suggesting small subpulmonic pleural effusions. Abdomen/Pelvis CT 08/07/23 10:26 IMPRESSION: Evaluation is very limited due to motion. 1. Severe sandy colonic and rectal wall thickening with a targetoid pattern of enhancement. In the context of moderate volume of ascites, interloop free fluid and mesenteric haziness, some degree of vascular compromise of the bowel cannot be excluded, although these findings could also be explained by portal hypertension. No evidence of pneumatosis or free air. Evaluation of vascular mesenteric patency is limited due to motion and timing of IV contrast. 2. Hepatosplenomegaly with hepatic steatosis and possibly liver cirrhosis. 3. Findings indicative of portal hypertension. 4. Cholelithiasis. Nonspecific gallbladder wall thickening and pericholecystic free fluid in the context of ascites and liver disease. Recommend clinical correlation for acute cholecystitis. 5. Multifocal groundglass opacities in the lungs with bibasilar compressive atelectasis/consolidative opacities and moderate-sized bilateral pleural effusions. Recommend clinical correlation for volume overload/pulmonary edema as well as the presence of a superimposed respiratory infectious/inflammatory process. 6. Chronic diffuse increased sclerosis of the bone marrow of the axial and appendicular skeleton, fairly nonspecific could be related with a metabolic or myeloproliferative disorder. 7. Chronic severe compression deformity of T8. 8. Multivessel coronary artery calcifications. Scattered atherosclerotic disease. Cardiomegaly. Chest CT 08/07/23 10:26 IMPRESSION: Evaluation is very limited due to motion. 1. Severe sandy colonic and rectal wall thickening with a targetoid pattern of enhancement. In the context of moderate volume of ascites, interloop free fluid and mesenteric haziness, some degree of vascular compromise of the bowel cannot be excluded, although these findings could also be explained by portal hypertension. No evidence of pneumatosis or free air. Evaluation of vascular mesenteric patency is limited due to motion and timing of IV contrast. 2. Hepatosplenomegaly with hepatic steatosis and possibly liver cirrhosis. 3. Findings indicative of portal hypertension. 4. Cholelithiasis. Nonspecific gallbladder wall thickening and pericholecystic free fluid in the context of ascites and liver disease. Recommend clinical correlation for acute cholecystitis. 5. Multifocal groundglass opacities in the lungs with bibasilar compressive atelectasis/consolidative opacities and moderate-sized bilateral pleural effusions. Recommend clinical correlation for volume overload/pulmonary edema as well as the presence of a superimposed respiratory infectious/inflammatory process. 6. Chronic diffuse increased sclerosis of the bone marrow of the axial and appendicular skeleton, fairly nonspecific could be related with a metabolic or myeloproliferative disorder. 7. Chronic severe compression deformity of T8. 8. Multivessel coronary artery calcifications. Scattered atherosclerotic disease. Cardiomegaly. Discharge Plan Discharge Anticipated Discharge Date/Time: 08/16/23 10:18 Patient Disposition: Home, Self-Care Discharge Diagnosis: Sepsis, pneumonia Colitis Blood loss anemia Referrals: Physician,Unknown J [Primary Care Provider] - 1 Week Discharge Medications: New omeprazole 40 mg Capsule,Delayed Release(Dr/Ec) 40 mg PO DAILY Qty: 90 0RF vancomycin 125 mg Capsule 125 mg PO Q6H Qty: 20 0RF magnesium oxide 400 mg (241.3 mg magnesium) Tablet 400 mg PO DAILY Qty: 90 0RF folic acid 1 mg Tablet 1 mg PO DAILY Qty: 90 0RF thiamine mononitrate (vit B1) 100 mg Tablet 100 mg PO DAILY Qty: 90 0RF furosemide 20 mg tablet 20 mg PO QAM Qty: 90 0RF Continued acetaminophen 325 mg Tablet 650 mg PO Q6H PRN (Reason: Headache) Discharge Orders: Discharge Order (Routine); Ordered 08/16/23 Ordered By: Emily Lawrence Diet: Advance to usual diet Activity on Discharge: As tolerated Stand Alone Forms: Patient Portal Discharge page Care Plan Goals: Read below Health Concerns: Read below Plan of Treatment: Read below Assessment: Start Lasix 20 mg daily along with Folic acid and thiamine supplement Finish 5 more days of Vancomycin' Omeprazole daily for stomach protection We advise you complete abstinence from alcohol
--- NOTE | 2023-08-16 10:31 | MHC.CM.PN ---
Patient is discharged today self care. Transportation was offered; but the patient declined. He stated that he is going to his brother's home; which is [place] the [place] from [facility] [place]. 2 bus passes were given to the patient for his use PRN.
== END 2023-08-16 11:21 | disposition home or self-care (01) | DRG 194 ==
LOC: HO.ED 16:45 → HO.EDOVER 18:04 → HO.S3 19:12
PROVIDERS: Internal Medicine; Internal Medicine Gastroenterology; Student in an Organized Health Care Education/Training Program; Admitting Provider Student in an Organized Health Care Education/Training Program; Emergency Provider Emergency Medicine; Visit Provider Student in an Organized Health Care Education/Training Program
PROC: 06L38CZ Occlusion of Esophageal Vein with Extraluminal Device, Via Natural or Artificial Opening Endoscopic (ICD-10-PCS; principal; 2023-08-14 13:00)
DX: I50.33 Acute on chronic diastolic (congestive) heart failure (principal); J69.0 Pneumonitis due to inhalation of food and vomit; A41.9 Sepsis, unspecified organism; I85.11 Secondary esophageal varices with bleeding; A04.72 Enterocolitis due to Clostridium difficile, not specified as recurrent; K76.6 Portal hypertension; K70.31 Alcoholic cirrhosis of liver with ascites; D62 Acute posthemorrhagic anemia; D69.59 Other secondary thrombocytopenia; E83.42 Hypomagnesemia; J98.11 Atelectasis; R04.0 Epistaxis; Y90.3 Blood alcohol level of 60-79 mg/100 ml; K63.5 Polyp of colon; K64.0 First degree hemorrhoids; F10.229 Alcohol dependence with intoxication, unspecified; K31.89 Other diseases of stomach and duodenum; E87.6 Hypokalemia; F10.239 Alcohol dependence with withdrawal, unspecified; Z20.822 Contact with and (suspected) exposure to COVID-19; Z59.02 Unsheltered homelessness; Z87.891 Personal history of nicotine dependence; Z79.899 Other long term (current) drug therapy
CPT/HCPCS: 0241U; 36415; 71045; 71260; 74177; 80048; 80076; 80202; 80307; 81003; 82272; 82607; 82746; 82784; 83540; 83605; 83690; 83735; 83880; 84165; 84425; 84484; 84630; 85025; 85027; 85610; 85730; 86334; 86364; 86704; 86706; 86709; 86803; 86850; 86870; 86880; 86900; 86901; 86920; 86922; 86923; 87040; 87324; 87340; 87493; 87507; 87633; 87635; 87640; 87641; 88305; 93005; 97116; 97162; 99285; J0131; J0456; J0696; J1200; J1940; J2405; J2543; J2550; J2560; J3370; J3371; J3430; J3475; P9016; P9017; P9047; P9073; Q9967

== ENCOUNTER → 2023-08-03 17:50 | Outpatient (BNV) | payer MEDICAID, SELFPAY | PROVIDERS: Admitting Provider Student in an Organized Health Care Education/Training Program; Emergency Provider Emergency Medicine; Visit Provider Student in an Organized Health Care Education/Training Program | DX: A41.9 Sepsis, unspecified organism (principal); I50.9 Heart failure, unspecified; J69.0 Pneumonitis due to inhalation of food and vomit; F10.939 Alcohol use, unspecified with withdrawal, unspecified; K52.9 Noninfective gastroenteritis and colitis, unspecified; A49.8 Other bacterial infections of unspecified site; E83.42 Hypomagnesemia; D62 Acute posthemorrhagic anemia | CPT/HCPCS: 99223; 99231; 99232; 99233; 99239 ==

== ENCOUNTER → 2023-08-03 17:50 | Outpatient (BNV) | payer MEDICAID, SELFPAY | PROVIDERS: Admitting Provider Student in an Organized Health Care Education/Training Program; Emergency Provider Emergency Medicine; Visit Provider Internal Medicine Gastroenterology | DX: D64.9 Anemia, unspecified (principal); I85.00 Esophageal varices without bleeding; D12.2 Benign neoplasm of ascending colon; D12.4 Benign neoplasm of descending colon; K64.0 First degree hemorrhoids | CPT/HCPCS: 43244; 45385; 99222 ==

== ENCOUNTER → 2023-08-03 17:50 | Outpatient (BNV) | payer MEDICAID, SELFPAY | PROVIDERS: Admitting Provider Student in an Organized Health Care Education/Training Program; Emergency Provider Emergency Medicine; Visit Provider Internal Medicine | DX: K52.9 Noninfective gastroenteritis and colitis, unspecified (principal); A49.8 Other bacterial infections of unspecified site; J69.0 Pneumonitis due to inhalation of food and vomit | CPT/HCPCS: 99222 ==

== ENCOUNTER 2023-08-21 17:01 | Emergency (ER) | payer MEDICAID, SELFPAY ==
--- NOTE | 2023-08-21 17:19 | ED.GENADULT ---
HPI - General Adult General Chief complaint: General Medical Stated complaint: PAIN AND NON PITTING EDEMA IN LOWER LEGS Time Seen by Provider: 08/21/23 17:08 Source: patient Mode of arrival: EMS Limitations: no limitations History of Present Illness HPI narrative: Patient comes emergency room complaining lower extremity edema. Patient states that his legs have been very swollen for the last few days. Patient denies any falls, fever chills. No shortness of breath with exertion. No chest pain. Patient states that he is compliant with his medications, discharged less than a week ago from the hospital with Lasix. Related Data Home Medications Medication Instructions Recorded Confirmed acetaminophen 325 mg tablet 650 mg PO Q6H PRN Headache 06/08/23 08/03/23 Previous Rx's Medication Instructions Recorded folic acid 1 mg tablet 1 mg PO DAILY #90 tabs 08/16/23 furosemide 20 mg tablet 20 mg PO QAM #90 tabs 08/16/23 magnesium oxide 400 mg (241.3 mg 400 mg PO DAILY #90 tabs 08/16/23 magnesium) tablet omeprazole 40 mg capsule,delayed 40 mg PO DAILY #90 caps 08/16/23 release thiamine mononitrate (vit B1) 100 100 mg PO DAILY #90 tabs 08/16/23 mg tablet vancomycin 125 mg capsule 125 mg PO Q6H #20 caps 08/16/23 furosemide 40 mg tablet (Lasix) 40 mg PO BID #6 tabs 08/21/23 magnesium oxide 400 mg PO DAILY #14 tabs 08/21/23 Allergies Allergy/AdvReac Type Severity Reaction Status Date / Time No Known Allergies Allergy Verified 06/24/23 18:44 [No Known Allergies*] Review of Systems Review of Systems: Constitutional : No Weight loss, No Fever, No Chills, No Night Sweats, No Fatigue, No Malaise ENT/Mouth : No Hearing loss, No Ear Pain, No Nasal Congestion, No Sinus Pain, No Hoarseness, No sore throat, No Rhinorrhea, No Swallowing Difficulty Eyes: No Eye Pain, No Swelling, No Redness, No Foreign Body, No Discharge, No Vision Changes Cardiovascular : No Chest Pain, No SOB, No Dyspnea on Exertion, No Orthopnea, no palpitations, complaining of bilateral lower extremity edema despite taking Lasix Respiratory : No Cough, No Sputum, No Wheezing, No Smoke Exposure, No Dyspnea Gastrointestinal : No Nausea, No Vomiting, No Diarrhea, No Constipation, No abdominal Pain, No Hematochezia, No Melena Genitourinary : no irregular bleeding, No Dysuria, No Urinary Frequency, No Hematuria, No Urinary Incontinence, No Urgency, No Flank Pain, No Urinary Flow Changes, No Hesitancy Musculoskeletal : No joint pain, No Myalgias, No Joint Swelling Skin : No Skin Lesions, No rash Neuro : No Weakness, No Numbness, No Paresthesias, No Loss of Consciousness, No Dizziness, No Headache Psych : No Anxiety/Panic, No Depression, No SI/HI/AH/VH, No Social Issues, Heme/Lymph: No Bruising, No Bleeding,No Lymphadenopathy Endocrine : No Polyuria, No Polydipsia, No Temperature Intolerance [facility] Past Medical History Medical History Aspiration pneumonia Pneumonia Hypomagnesemia Cirrhosis Thrombocytopenia Alcoholic liver disease Acute on chronic anemia CHF (congestive heart failure) Anemia Alcohol abuse Surgical History No history of previous surgery Social History Social History Household Members: Other Household Members Other:: pt homeless Housing: Homeless Housing Other:: homeless Do you presently have visiting nurse or other home services: No Alcohol intake: current Alcohol intake frequency: 3 or more drinks per day Alcohol type: beer and hard liquor Patient Tobacco Use Status: Former Tobacco user Quit Date: 12 years ago Tobacco use type: Cigarette Smoked in Last 30 Days: No Second Hand Smoke Exposure: No Use of substances other than those prescribed or required for medical reasons: No Advance Directives: Yes Advance Directives on File: Yes Advance Directives Date on File: 07/13/23 service: No Physical Exam ED Vital Signs: Vital Signs - 24 hr 08/21/23 17:26 08/21/23 19:38 Temperature 98.4 F Pulse Rate 101 H 98 Respiratory Rate 16 17 Blood Pressure 103/57 L 105/55 L Pulse Oximetry 95 91 L Oxygen Delivery Method Room Air Room Air BMI result Body Mass Index 22.8 Const Other: Appearance: Alert. Oriented X3. No acute distress. Eyes: Pupils equal, round and reactive to light. ENT: Pharynx normal. Neck: Normal inspection. Neck supple. No lymph nodes noted. No crepitus CVS: Normal heart rate and rhythm. Pulses normal. Normal S1 and S2 Respiratory: No respiratory distress. Breath sounds normal. No Wheezing. No rales Abdomen: Soft and nontender. No rigidity. No distention. Skin: Skin warm and dry. Normal skin color. Normal skin turgor. Extremities: +3 pitting edema bilaterally No Lacerations. No Rash Neuro: Oriented X 3. No motor deficit. No sensory deficit. Moving all extremities. No slurred speech. CN 2 through 12 grossly intact Psych: calm, cooperative, normal affect Medical Decision Making Medical Decision Making [facility] Narrative: My interpretation of chest x-ray: Very Small pleural effusions, the x-ray looks better than on his previous admissions. BNP level reassuring -patient was ambulated in the emergency room, oxygen saturation 89%. Patient did not feel short of breath, no syncope/near-syncope or dizziness -I discussed the patient with Dr. Hogan, recommendations: Double Lasix home dose -patient has chronic hypomagnesemia, usually between 1.2-1.5. Patient given 800 mg of magnesium p.o. in the ED Differential Diagnosis Differential Diagnoses: The differential diagnosis associated with the presentation includes (Lower extremity edema, CHF, chronic venous stasis) Admission/Observation Consideration of admission/observation: Escalation of care including admission/observation considered (Patient's oxygen saturation 89% on room air walking, mid 90s while sitting.) Consult Healthcare Provider Management of the patient was discussed with: Hospitalist Lab Data [facility] Lab Attestation statement: I reviewed the patient's lab results. 08/21/23 18:05 08/21/23 18:05 Labs: Lab Results 08/21/23 08/21/23 Range/Units 18:05 18:11 WBC 4.6 L (4.8-10.8) X10*3/uL RBC 2.36 L (4.60-5.80) X10*6/uL Hgb 8.0 L (14.0-18.0) g/dl Hct 23.7 L (42.0-52.0) % MCV 100.4 H (80.0-98.0) fL MCH 33.9 H (27.0-33.0) pg MCHC 33.8 (31.0-36.0) g/dl RDW 16.7 H (11.0-16.0) % Plt Count 48 L D (160-400) X10*3/uL MPV 11.8 (9.4-12.4) fL Immature Gran % (Auto) 0.4 (0.0-0.4) % Neut % (Auto) 62.8 (45-73) % Lymph % (Auto) 22.2 (20-40) % [place] % (Auto) 12.2 H (2-11) % Eos % (Auto) 1.5 (0-4) % Baso % (Auto) 0.9 (0-2) % Lymph # (Auto) 1.0 L (1.2-4.9) X10*3/uL [place] # (Auto) 0.6 (0.1-1.2) X10*3/uL Eos # (Auto) 0.1 (0.0-0.4) X10*3/uL Baso # (Auto) 0.0 (0.0-0.2) X10*3/uL Abs Immat Gran (auto) 0.02 (0.00-0.03) X10*3/uL Absolute Neuts (auto) 2.9 (2.0-8.3) x10*3/uL Absolute Nucleated RBC 0.000 (0.0-0.012) X10*3/uL Nucleated RBC % (auto) 0.0 (0.0-0.2) /100WBC PT 21.5 H D (11.1-13.3) SEC INR 1.8 H (0.9-1.1) Sodium 139 (135-145) mmol/L Potassium 3.5 (3.3-5.1) mmol/L Chloride 105 (96-108) mmol/L Carbon Dioxide 21 L (22-29) mmol/L Anion Gap 17 (12-20) BUN 4 L (9-16) mg/dL Creatinine 0.63 (0.5-1.4) mg/dL Estim Creat Clear Calc 120.9 Estimated GFR > 60 Random Glucose 87 (60-115) mg/dL Calcium 9.5 (8.4-10.2) mg/dL Magnesium 1.3 L* (1.6-2.6) mg/dL Total Bilirubin 3.1 H (0.0-1.0) mg/dL Direct Bilirubin 0.9 H (0.0-0.5) mg/dL AST 41 H (5-37) U/L ALT 9 (0-40) U/L Alkaline Phosphatase 96 (39-117) U/L Troponin I High Sens 16.7 D (<3.5-35.0) ng/L B-Natriuretic Peptide 336 H (<100) pg/mL Total Protein 8.1 H (6.5-8.0) g/dL Albumin 3.2 L (3.5-5.0) g/dL Urine Opiates Screen Not Detected (Not Detect) Urine Fentanyl Screen Not Detected (Not Detect) Ur Barbiturates Screen POSITIVE H (Not Detect) Ur Phencyclidine Scrn Not Detected (Not Detect) Ur Amphetamines Screen Not Detected (Not Detect) U Benzodiazepines Scrn Not Detected (Not Detect) Urine Cocaine Screen Not Detected (Not Detect) U Marijuana (THC) Screen Not Detected (Not Detect) Ethyl Alcohol 127 mg/dL COVID-19 (TAI) Negative (Negative) COVID-19 Clin Com See Note Independent Interpretation I performed an independent interpretation of an: Plain X-Ray Radiology Impression Discussion of test interpretation with radiology: I have reviewed the radiologist's reading. Radiologist Impression: When compared to the previous study there is improved aeration of both lungs. Seen on the previous study left lower lobe opacity is diminished but still present with silhouetting of the left hemidiaphragm and cardiac border. The increased interstitial markings and vascularity distribution suggestive for CHF. Cardiomediastinal silhouette is not enlarged. There is blunting of costophrenic angles most likely due to trace of pleural effusion. XR/XR chest 1V IMPRESSION: Improvement of airspace disease are seen on the left on the previous study but CHF and trace of pleural effusion. Critical Care Time Critical Care Time Critical Care Time: Yes Total Critical Care Time: 60 Attestation: I have personally provided critical care time. Time includes review of lab data, radiology results, discussion with consultants, and monitoring for potential decompensation. Intervention performed as documented. Discharge Plan Discharge Clinical Impression: Bilateral edema of lower extremity, Hypomagnesemia Patient Disposition: Home, Self-Care Instructions: Leg Edema (ED) Additional Instructions: Please follow-up with your primary care physician tomorrow. If you have any worsening or new symptoms, please return to the emergency room or call 911 Prescriptions: New furosemide [Lasix] 40 mg tablet 40 mg PO BID Qty: 6 0RF magnesium oxide 400 mg magnesium tablet 400 mg PO DAILY Qty: 14 0RF No Action acetaminophen 325 mg Tablet 650 mg PO Q6H PRN (Reason: Headache) omeprazole 40 mg Capsule,Delayed Release(Dr/Ec) 40 mg PO DAILY Qty: 90 0RF vancomycin 125 mg Capsule 125 mg PO Q6H Qty: 20 0RF magnesium oxide 400 mg (241.3 mg magnesium) Tablet 400 mg PO DAILY Qty: 90 0RF folic acid 1 mg Tablet 1 mg PO DAILY Qty: 90 0RF thiamine mononitrate (vit B1) 100 mg Tablet 100 mg PO DAILY Qty: 90 0RF furosemide 20 mg tablet 20 mg PO QAM Qty: 90 0RF
[2023-08-21 17:26] VITALS: BP 103/57; PULSE 101; PULSE 103; RESP 16; TEMP 36.9; O2SAT 95; BMI 22.8
--- NOTE | 2023-08-21 17:28 | PC.NURSE ---
pt BIBA from outside of liquor store where he is c/o JULIA lower extremity edema, tingly when he walks. edema +2, red. he reports drinking daily, hx of etoh withdrawal. reports he only drank 1 beer today
[2023-08-21 19:38] VITALS: BP 105/55; PULSE 98; RESP 17; O2SAT 91
--- NOTE | 2023-08-21 19:38 | PC.NURSE ---
ambulation trial per Dr. Sweeney request. sats 89-91% on room air. pt requests food/drinks. awaiting discharge.
== END 2023-08-21 20:45 | disposition home or self-care (01) ==
PROVIDERS: Emergency Provider Emergency Medicine
DX: R60.0 Localized edema (principal); E83.42 Hypomagnesemia; R94.31 Abnormal electrocardiogram [ECG] [EKG]; Z20.822 Contact with and (suspected) exposure to COVID-19; Z79.899 Other long term (current) drug therapy; Z87.891 Personal history of nicotine dependence
CPT/HCPCS: 36415; 71045; 80048; 80076; 80307; 83735; 83880; 84484; 85025; 85610; 87635; 93005; 99284

== ENCOUNTER 2023-08-25 08:45 | Emergency (ER) | payer MEDICAID, SELFPAY ==
--- NOTE | ~2023-08-25 | XR_ITS ---
EXAMINATION: XR CHEST CLINICAL INFORMATION: Lower extremity edema COMPARISON: 08/21/2023, 08/15/2023 TECHNIQUE: 2 views of the chest were obtained. FINDINGS: Cardiac silhouette heart size within normal limits. Prominent vascularity. Decreasing left base opacity. Persistent left costophrenic angle blunting. Improved right costophrenic angle blunting. Unchanged severe mid dorsal compression. XR/XR chest 2V IMPRESSION: Persistent vascular congestion and very small effusions. Decreasing left base opacity, likely improving consolidation.
[2023-08-25 08:57] VITALS: BP 138/72; PULSE 94; RESP 20; TEMP 36.6; O2SAT 94
--- NOTE | 2023-08-25 08:58 | MHC.EDTECH ---
pt arrives to ER with EMS. vitals done, warm blankets given.
[2023-08-25 09:06] VITALS: BP 138/64; PULSE 94; O2SAT 98; BMI 25.9
--- NOTE | 2023-08-25 10:24 | ED_ITS ---
HPI - General Adult General Chief complaint: ETOH/Substance Use Stated complaint: ETOH BILATERAL EDEMA Time Seen by Provider: 08/25/23 09:04 Source: patient, EMS and RN notes reviewed Mode of arrival: EMS Limitations: altered mental status History of Present Illness HPI narrative: Patient is a 53-year-old male with history of alcohol abuse, CHF, cirrhosis presenting to the emergency department with complaint of bilateral lower extremity edema. Patient admits to drinking alcohol today prior to arrival. Patient states that he was recently prescribed a medication for his legs, is unsure which medication, but states he has not been taking it. He denies any chest pain or shortness of breath. Denies any abdominal pain, nausea, vomiting, diarrhea, or constipation. Denies recent fevers. MD complaint: lower extremity edema Onset (ago): day(s) Location: lower extremity Radiation: non-radiation Severity: moderate Quality: burning and aching Pain Consistency: constant Relieving factors: rest Exacerbating factors: movement Associated symptoms: denies other symptoms Treatments prior to arrival: none Related Data Previous Rx's Medication Instructions Recorded furosemide 40 mg tablet 40 mg PO DAILY #7 tabs 08/25/23 magnesium oxide 400 mg PO DAILY #7 tabs 08/25/23 Allergies Allergy/AdvReac Type Severity Reaction Status Date / Time No Known Allergies Allergy Verified 08/25/23 09:13 [No Known Allergies*] Review of Systems 2 Review of Systems: As per HPI. Yes all other systems are reviewed and are negative Constitutional: Constitutional: Reports as per HPI PMFSH Past Medical History Medical History Aspiration pneumonia Pneumonia Hypomagnesemia Cirrhosis Thrombocytopenia Alcoholic liver disease Acute on chronic anemia CHF (congestive heart failure) Anemia Alcohol abuse Surgical History No history of previous surgery Social History Social History Household Members: Other Household Members Other:: pt homeless Housing: Homeless Housing Other:: homeless Do you presently have visiting nurse or other home services: No Alcohol intake: current Alcohol intake frequency: 3 or more drinks per day Alcohol type: beer and hard liquor Patient Tobacco Use Status: Former Tobacco user Quit Date: 12 years ago Tobacco use type: Cigarette Second Hand Smoke Exposure: No Advance Directives: Yes Advance Directives on File: Yes Advance Directives Date on File: 07/13/23 service: No Physical Exam ED Vital Signs: Vital Signs - 24 hr 08/25/23 08:57 08/25/23 14:10 08/25/23 14:39 Temperature 97.9 F Pulse Rate 94 94 112 H Respiratory Rate 20 18 Blood Pressure 138/72 Pulse Oximetry 94 Oxygen Delivery Method Nasal Cannula Room Air Oxygen Flow Rate 2 94 BMI result Body Mass Index 25.9 Vital signs have been reviewed and appear to be correct. Blood pressure normal. Heart rate normal. Respiratory rate normal. Temperature normal. Oxygen saturation low on room air and O2 applied by nursing. Const General: cooperative and no acute distress Orientation/consciousness: oriented to person, oriented to place, oriented to time and patient oriented x3 HENMT Head: Yes normocephalic and Yes atraumatic Ears: external ears normal General nose exam: Normal external nose present Face and sinus: Yes face symmetric Mouth: oropharynx normal and moist mucous membranes Throat: Yes uvula midline Eyes Pupils: Equal, round and reactive pupils present Neck Neck: Yes normal visual inspection and Yes supple Resp Effort & Inspection: normal respiratory effort and able to speak in complete sentences Auscultation: clear to auscultation bilaterally Cardio Rate: regular rate Rhythm: regular rhythm Heart sounds: S1 normal heart sound present and S2 normal heart sound present GI Palpation (GI): Soft to palpation and nontender Auscultation: normoactive bowel sounds General: Yes no CVA tenderness Back/Spine/Pelvis Back: no CVA tenderness Skin General skin exam: elasticity normal and turgor normal Neuro General: oriented to person, oriented to place, oriented to time, patient oriented x3, moves all extremities, no focal motor deficits and CN's II-XI intact bilaterally Cranial nerves: Yes Equal, round and reactive pupils present Cognition (Neuro): normal cognition Extrem General: Yes full ROM and Yes no calf tenderness Right lower extremity: edema Details: pitting and 2+ Left lower extremity: edema Details: pitting and 2+ Psych Mental Status: mental status grossly normal Affect: normal affect Thought process: Normal thought process present Course Reevaluation(s) Reevaluation #1: Attempted to admit patient for hypoxia. Admitting PA reporting that patient is refusing admission. Will discharge against medical advice with prescriptions for Lasix and magnesium. Return precautions discussed at bedside. Patient verbalized understanding of risks of leaving AMA up to including and still wishes to leave [facility]. Time: 15:48 Medications Administered Discontinued Medications Generic Name Dose Route Start Last Admin Trade Name David PRN Reason Stop Dose Admin Albuterol Sulfate 2 puff 08/25/23 14:33 08/25/23 14:39 Albuterol Sulfate 90 Mcg 8 Gm Inhaler INHALE 08/25/23 14:34 2 puff ONCE ONE Administration Furosemide 40 mg 08/25/23 13:22 08/25/23 13:39 Furosemide 40 Mg Tablet PO 08/25/23 13:23 40 mg ONCE ONE Administration Protocol Magnesium Oxide 800 mg 08/25/23 11:34 08/25/23 12:19 Magnesium Oxide 400 Mg Tablet PO 08/25/23 11:35 800 mg ONCE ONE Administration Medical Decision Making Medical Decision Making [facility] Narrative: Patient is a 53-year-old male with history of alcohol abuse, CHF, cirrhosis presenting to the emergency department with complaint of bilateral lower extremity edema after noncompliance with medications. On exam patient is awake, A+Ox3, requiring O2 to maintain saturation over 94%, VS otherwise WNL, afebrile, normal neurological exam without focal deficits, physical exam findings as above. Given reported symptoms and physical exam findings, initial differential includes lower extremity edema, CHF, chronic venous stasis, electrolyte abnormality. Labs notable for anemia, level similar to level at recent discharge from hospital, patient denies any hematemesis, hematochezia, melena, hematuria. Patient with history of chronic hypomagnesemia, level 1.4 today which is consistent with recent, 800mg PO magox ordered. BNP consistent with baseline, lasix ordered as patient is symptomatic. X-ray chest notable for persistent vascular congestion and very small effusions, decreasing left base opacity likely improving consolidation. My interpretation is in agreement with the radiologist's interpretation. Patient's oxygen saturation noted to drop to 84% on room air by RT. [place] text to Dr. Storey to discuss admission. Differential Diagnosis Differential Diagnoses: The differential diagnosis associated with the presentation includes As per [facility] Admission/Observation Consideration of admission/observation: Escalation of care including admission/observation considered Consult Healthcare Provider Management of the patient was discussed with: Hospitalist (Dr. Storey) Lab Data [facility] Lab Attestation statement: I reviewed the patient's lab results. As per [facility] 08/25/23 10:56 08/25/23 10:56 Labs: Lab Results 08/25/23 Range/Units 10:56 WBC 3.2 L (4.8-10.8) X10*3/uL RBC 2.33 L (4.60-5.80) X10*6/uL Hgb 7.8 L (14.0-18.0) g/dl Hct 23.3 L (42.0-52.0) % MCV 100.0 H (80.0-98.0) fL MCH 33.5 H (27.0-33.0) pg MCHC 33.5 (31.0-36.0) g/dl RDW 16.5 H (11.0-16.0) % Plt Count 50 L (160-400) X10*3/uL MPV 11.2 (9.4-12.4) fL Immature Gran % (Auto) 0.3 (0.0-0.4) % Neut % (Auto) 51.4 (45-73) % Lymph % (Auto) 31.1 (20-40) % [place] % (Auto) 13.8 H (2-11) % Eos % (Auto) 2.8 (0-4) % Baso % (Auto) 0.6 (0-2) % Lymph # (Auto) 1.0 L (1.2-4.9) X10*3/uL [place] # (Auto) 0.4 (0.1-1.2) X10*3/uL Eos # (Auto) 0.1 (0.0-0.4) X10*3/uL Baso # (Auto) 0.0 (0.0-0.2) X10*3/uL Abs Immat Gran (auto) 0.01 (0.00-0.03) X10*3/uL Absolute Neuts (auto) 1.6 L (2.0-8.3) x10*3/uL Absolute Nucleated RBC 0.000 (0.0-0.012) X10*3/uL Nucleated RBC % (auto) 0.0 (0.0-0.2) /100WBC Smear Tech's Comments VERIFIED Sodium 140 (135-145) mmol/L Potassium 3.7 (3.3-5.1) mmol/L Chloride 109 H (96-108) mmol/L Carbon Dioxide 21 L (22-29) mmol/L Anion Gap 14 (12-20) BUN 6 L (9-16) mg/dL Creatinine 0.59 (0.5-1.4) mg/dL Estim Creat Clear Calc 119.8 Estimated GFR > 60 Random Glucose 94 (60-115) mg/dL Calcium 9.6 (8.4-10.2) mg/dL Magnesium 1.4 L* (1.6-2.6) mg/dL Total Bilirubin 2.8 H (0.0-1.0) mg/dL AST 37 (5-37) U/L ALT 7 (0-40) U/L Alkaline Phosphatase 106 (39-117) U/L B-Natriuretic Peptide 351 H (<100) pg/mL Total Protein 7.8 (6.5-8.0) g/dL Albumin 3.0 L (3.5-5.0) g/dL Ethyl Alcohol 132 mg/dL Independent Interpretation I performed an independent interpretation of an: Plain X-Ray Interpretation: Persistent vascular congestion with small effusions, decreasing left base opacity Radiology Impression Discussion of test interpretation with radiology: I have reviewed the radiologist's reading. Radiologist Impression: XR/XR chest 2V IMPRESSION: Persistent vascular congestion and very small effusions. Decreasing left base opacity, likely improving consolidation. External Record Review External record reviewed: Inpatient record, Office record and Outpatient record Prescription Management I considered prescription management with: Other Discharge Plan Discharge Clinical Impression: Bilateral lower extremity edema Patient Disposition: Left Against Medical Advice Instructions: Leg Edema (ED) Additional Instructions: IT IS IMPORTANT THAT YOU TAKE YOUR PRESCRIBED MEDICATIONS. PLEASE AMBULANCE OPERATIONS SUPERVISOR YOUR PRESCRIPTIONS FROM THE PHARMACY. Return to the emergency department if you experience chest pain, shortness of breath, worsening pain, or any other concerning symptoms. Prescriptions: New furosemide 40 mg tablet 40 mg PO DAILY Qty: 7 0RF magnesium oxide 400 mg magnesium tablet 400 mg PO DAILY Qty: 7 0RF Stand Alone Forms: Against Medical Advice
[2023-08-25 11:02] LABS: Basophils Percent Auto 0.6 % (0-2); Eosinophils Absolute Auto 0.1 X10*3/uL (0.0-0.4); Eosinophils Percent Auto 2.8 % (0-4); Hematocrit 23.3 % (42.0-52.0); Hemoglobin 7.8 g/dl (14.0-18.0); Imm Gran Abs Auto 0.01 X10*3/uL (0.00-0.03); Imm Gran Pct Auto 0.3 % (0.0-0.4); Lymphocytes Percent Auto 31.1 % (20-40); Mean Corpuscular HGB Conc 33.5 g/dl (31.0-36.0); Mean Corpuscular Hemoglobin 33.5 pg (27.0-33.0); Mean Platelet Volume 11.2 fL (9.4-12.4); Monocytes Absolute Auto 0.4 X10*3/uL (0.1-1.2); Monocytes Percent Auto 13.8 % (2-11); Neutrophils Absolute Auto 1.6 x10*3/uL (2.0-8.3); Neutrophils Percent Auto 51.4 % (45-73); Platelet Count 50 X10*3/uL (160-400); Red Blood Count 2.33 X10*6/uL (4.60-5.80); Red Cell Distribution Width 16.5 % (11.0-16.0); White Blood Count 3.2 X10*3/uL (4.8-10.8)
[2023-08-25 11:20] LABS: Alanine Aminotransferase 7 U/L (0-40); Alkaline Phosphatase 106 U/L (39-117); Anion Gap 14 (12-20); Aspartate Amino Transferase 37 U/L (5-37); B Type Natriuretic Peptide 351 pg/mL (<100); Bilirubin Total 2.8 mg/dL (0.0-1.0); Blood Urea Nitrogen 6 mg/dL (9-16); Calcium 9.6 mg/dL (8.4-10.2); Carbon Dioxide 21 mmol/L (22-29); Chloride 109 mmol/L (96-108); Creatinine Clr Calc Pharmacy 119.8; Estimated Glomerular Filt Rate > 60; Ethanol 132 mg/dL; Glucose Random 94 mg/dL (60-115); Magnesium 1.4 mg/dL (1.6-2.6); Potassium 3.7 mmol/L (3.3-5.1); Sodium 140 mmol/L (135-145); Total Protein 7.8 g/dL (6.5-8.0)
[2023-08-25 11:23] LABS: MANUAL DIFF FLAG SCAN; SLIDE REVIEW VERIFIED
[2023-08-25] MEDS: Magnesium Oxide 400 MG TABLET 800 MG PO (12:19)
[2023-08-25] MEDS: Furosemide 40 MG TABLET PO (13:39)
[2023-08-25 14:10] VITALS: PULSE 94
[2023-08-25 14:39] VITALS: PULSE 112; RESP 18; O2SAT 84
[2023-08-25] MEDS: Albuterol Sulfate 90 MCG 8 GM INHALER 2 PUFF INHALE (14:39)
--- NOTE | 2023-08-25 14:41 | PC.RT ---
assessed pt. upon return from bathroom. SpO2 at 84%. placed on 2LNC with improvement to 93%. Provider aware.
--- NOTE | 2023-08-25 14:53 | MHC.EDTECH ---
pt homeless. given one of our care bags for discharge.
--- NOTE | 2023-08-25 15:37 | PHA.MEDREC ---
Pharmacy Consult ? Medication Reconciliation Pharmacy has completed the medication reconciliation. Patient states he takes no medications when he is not in the hospital
== END 2023-08-25 17:30 | disposition left against medical advice (07) ==
PROVIDERS: Registered Nurse Emergency; Emergency Provider Student in an Organized Health Care Education/Training Program
DX: R60.0 Localized edema (principal); R09.02 Hypoxemia; F10.10 Alcohol abuse, uncomplicated; Y90.6 Blood alcohol level of 120-199 mg/100 ml; K74.60 Unspecified cirrhosis of liver; D64.9 Anemia, unspecified; I50.9 Heart failure, unspecified; Z87.891 Personal history of nicotine dependence; Z91.148 Patient's other noncompliance with medication regimen for other reason; Z53.29 Procedure and treatment not carried out because of patient's decision for other reasons
CPT/HCPCS: 36415; 71046; 80053; 80307; 83735; 83880; 85025; 94640; 99283; 99284

== ENCOUNTER 2023-08-26 14:58 | Emergency (ER) | payer MEDICAID, SELFPAY ==
[2023-08-26 15:13] VITALS: BP 116/64; PULSE 89; RESP 16; TEMP 36.9; O2SAT 93; BMI 24.3
--- NOTE | 2023-08-26 15:23 | ED_ITS ---
HPI - Alcohol General Chief Complaint: ETOH/Substance Use Stated Complaint: ETOH Time Seen by Provider: 08/26/23 15:16 Source: patient and EMS Mode of arrival: EMS Limitations: no limitations History of Present Illness HPI narrative: 53-year-old male with history of alcohol abuse, CHF, liver cirrhosis likely alcoholic presented to the emergency department with complain of bilateral lower extremity edema patient admitted to drinking before coming to the hospital patient is on Lasix but patient is not compliant with his medication. Patient declined any recent trauma. Related Data Previous Rx's Medication Instructions Recorded furosemide 40 mg tablet 40 mg PO DAILY #7 tabs 08/25/23 magnesium oxide 400 mg PO DAILY #7 tabs 08/25/23 Allergies Allergy/AdvReac Type Severity Reaction Status Date / Time No Known Allergies Allergy Verified 08/25/23 09:13 [No Known Allergies*] Review of Systems Review of Systems: All other systems are reviewed and are negative Constitutional: Reports as per HPI and Reports no additional constitutional complaints Eyes: Reports as per HPI and Reports no additional eye complaints Reports system reviewed and no additional complaints, except as documented Cardiovascular: Reports as per HPI and Reports no additional cardiovascular complaints Respiratory: Reports as per HPI and Reports no additional respiratory complaints Gastrointestinal: Reports as per HPI and Reports no additional gastrointestinal complaints Genitourinary: Reports no additional female genitourinary complaints Musculoskeletal: Reports no additional musculoskeletal complaints Skin/Breast: Reports system reviewed and no additional complaints, except as docu Psychiatric: Reports no additional psychiatric complaints Endocrine: Reports no additional endocrine complaints Hematologic/Lymphatic: Reports no additional hematologic/lymphatic complaints Allergic/Immunologic: Reports no additional allergic/immunologic complaints Reports system reviewed and no additional complaints, except as documented and R eports Abnormal speech present [facility] Past Medical History Medical History Malnutrition CHF (congestive heart failure) Anemia Aspiration pneumonia Pneumonia Hypomagnesemia Cirrhosis Thrombocytopenia Alcoholic liver disease Acute on chronic anemia CHF (congestive heart failure) Anemia Alcohol abuse Surgical History No history of previous surgery Social History Social History Household Members: Other Household Members Other:: pt homeless Housing: Homeless Housing Other:: homeless Do you presently have visiting nurse or other home services: No Alcohol intake: current Alcohol intake frequency: 3 or more drinks per day Alcohol type: beer and hard liquor Patient Tobacco Use Status: Former Tobacco user Quit Date: 12 years ago Tobacco use type: Cigarette Second Hand Smoke Exposure: No Advance Directives: Yes Advance Directives on File: Yes Advance Directives Date on File: 07/13/23 service: No Physical Exam ED Vital Signs: Vital Signs - 24 hr 08/26/23 15:13 Temperature 98.5 F Pulse Rate 89 Respiratory Rate 16 Blood Pressure 116/64 Pulse Oximetry 93 Oxygen Delivery Method Room Air BMI result Body Mass Index 24.3 Vital signs have been reviewed and appear to be correct. Blood pressure elevated. Heart rate normal. Respiratory rate normal. Temperature normal. Oxygen saturation normal. Appearance: disheveled, Alert. Oriented X3. No acute distress. Head: Normal external exam. Normocephalic. Atraumatic. No [place] signs noted. No raccoon eyes noted Eyes: PERRLA. EOMI. Conjunctiva and sclera normal. Eyelids normal. ENT: TM's Normal. Pharynx normal. Uvula midline. Moist mucous membranes. No trismus noted. No drooling noted. No muffled voice noted. Neck: Normal inspection. Neck supple. FROM. No adenopathy. Thyroid Normal. No meningeal signs. No neck mass noted. CVS: Normal heart rate and rhythm. Heart sound normal. No murmurs noted. Pulses normal throughout. Respiratory: No respiratory distress. Painless inspiration. Breath sounds normal. No wheezes/rales/rhonchi noted. Chest nontender. No accessory muscle usage noted or decreased air movement noted. Abdomen: Soft and nontender. Bowel sounds normal in all 4 quadrants. No distention noted. No organomegaly noted. No visible injury noted. Back: No CVA tenderness. Full range of motion noted. Skin: Skin warm and dry. Normal skin color. Normal skin turgor. No rashes/lesions/lacerations noted. Extremities: +2 lower extremity edema. Extremities exhibit normal range of motion. Extremities nontender. Neuro: Oriented X 3. Cranial nerve exam: II-XII are grossly intact No motor deficit. No sensory deficit. Reflexes normal. Course Reevaluation(s) Reevaluation #1: bilateral lower extremity edema patient is not compliant with his Lasix medication. Will discharge when he is sober Time: 15:27 Medical Decision Making Differential Diagnosis Differential Diagnoses: The differential diagnosis associated with the presentation includes ( alcohol intoxication, lower extremities chronic edema) Admission/Observation Consideration of admission/observation: Escalation of care including admission/observation considered Discharge Plan Discharge Clinical Impression: Alcoholic intoxication Patient Disposition: Still a Patient Instructions: Alcohol Intoxication (ED) Prescriptions: No Action furosemide 40 mg tablet 40 mg PO DAILY Qty: 7 0RF magnesium oxide 400 mg magnesium tablet 400 mg PO DAILY Qty: 7 0RF
[2023-08-27 02:21] VITALS: BP 105/49; PULSE 102; RESP 14; TEMP 37.5; O2SAT 92
--- NOTE | 2023-08-27 09:36 | PC.NURSE ---
pt currently sleeping on stretcher at this time. pt seems to be in no apparent distress. respirations even and unlabored.
== END 2023-08-27 10:02 | disposition still patient (30) ==
PROVIDERS: Emergency Provider Emergency Medicine
DX: F10.129 Alcohol abuse with intoxication, unspecified (principal); R60.9 Edema, unspecified; K74.60 Unspecified cirrhosis of liver; I50.9 Heart failure, unspecified
CPT/HCPCS: 99283; 99284

== ENCOUNTER 2023-08-28 23:25 | Inpatient (IN) | payer MEDICAID, SELFPAY ==
--- NOTE | ~2023-08-28 | CT_ITS ---
EXAMINATION: CT ABDOMEN AND PELVIS WITH CONTRAST CLINICAL INFORMATION: COMPARISON: 08/07/2023 TECHNIQUE: Multidetector volumetric images were obtained from the superior aspect of the liver through the pubic symphysis following administration 85 mL of Omnipaque 350 intravenous contrast. Sagittal and coronal reformatted images were obtained on the technologist's workstation. Oral contrast: No This CT examination was performed using dose optimization techniques as appropriate, variously including the following: *Automated exposure control *Adjustment of mA and/or kV according to patient size (this includes techniques or standardized protocols for targeted exams where dose is matched to indication/reason for exam; i.e. extremities or head) *Use of iterative reconstruction technique DLP: 1844 mGy-cm FINDINGS: Limited evaluation throughout due to motion artifact. LUNG BASES: Significantly limited evaluation due to motion artifact. Small pleural effusions are present. Regions of bibasilar opacity are noted. LIVER, GALLBLADDER, AND BILIARY TREE: The liver demonstrates a slightly nodular contour. No focal hepatic lesion or biliary ductal dilatation is present. Gallbladder is distended. Proximal gallstone is noted. PANCREAS: Unremarkable. SPLEEN: Unremarkable. ADRENAL GLANDS: Unremarkable. KIDNEYS AND URETERS: Bilateral nephrograms are symmetric. No hydronephrosis or obstructing calculus identified. BLADDER: Unremarkable. GASTROINTESTINAL TRACT: Distal esophageal varices are noted. No evidence of bowel obstruction. There is a somewhat thick-walled appearance of the ascending colon, suboptimally assessed due to artifact. Trace free fluid is noted. No free air is seen. ABDOMINAL WALL: Anasarca is noted. LYMPH NODES: Normal. VASCULAR: Scattered vascular calcification. PELVIC VISCERA: Unremarkable. OSSEOUS STRUCTURES: Unremarkable. CT/CT abdomen pelvis w IV con IMPRESSION: 1. Limited evaluation throughout the abdomen/pelvis due to motion artifact. 2. Slightly nodular hepatic contour suggesting cirrhosis. Distal esophageal varices. Trace ascites. 3. Somewhat thick-walled appearance of the ascending colon, suboptimally assessed due to artifact. This could be due to portal colopathy versus infectious or inflammatory colitis in the proper clinical setting. 4. Small pleural effusions. Regions of adjacent bibasilar pulmonary opacity may represent atelectasis or consolidation. 5. Anasarca.
--- NOTE | ~2023-08-28 | CT_ITS ---
EXAMINATION: NONCONTRAST HEAD CT NONCONTRAST CERVICAL SPINE CT INDICATION INFORMATION: Found down COMPARISON: 05/24/2023 TECHNIQUE: Separate noncontrast CT examinations of the head and cervical spine were performed. Coronal head CT images and coronal and sagittal cervical spine images were created at the technologist workstation. DLP: 1844 mGy-cm DOSE LOWERING TECHNIQUES: This CT examination was performed using dose optimization techniques as appropriate, variously including the following: - Automated exposure control - Adjustment of mA and/or kV according to patient size (this includes techniques or standardized protocols for targeted exams were dose is matched to indication/reason for exam; i.e. extremities or head) - Use of iterative reconstruction technique FINDINGS: Head: Suboptimal assessment due to motion artifact. There is no appreciable acute intracranial hemorrhage or territorial infarction. No abnormal mass-effect or midline shift is seen. Weaver to white matter differentiation is well preserved. No extra-axial fluid collections are identified. The ventricles are normal in size. There is mild periventricular white matter hypoattenuation consistent with chronic small vessel ischemic disease. Mild volume loss is noted. The osseous structures and soft tissues are normal. The mastoid air cells and visualized portions of the paranasal sinuses are well-aerated. Cervical spine: Significantly limited evaluation due to motion artifact. There is rotation of C1 on C2 which may be due to patient positioning. Alignment of the remainder of the cervical spine appears grossly preserved. However, there is inadequate assessment for fractures throughout the cervical spine due to motion artifact. CT/CT cervical spine wo IV con IMPRESSION: HEAD: Suboptimal assessment due to motion artifact. No acute findings identified. CERVICAL SPINE: Significantly limited evaluation due to motion artifact, rendering the study essentially nondiagnostic for evaluation of fractures. If clinically warranted, repeat examination may be attempted when patient is able to remain still.
--- NOTE | ~2023-08-28 | XR_ITS ---
EXAMINATION: XR CHEST CLINICAL INFORMATION: Fall COMPARISON: 08/25/2023 TECHNIQUE: Frontal view of the chest was obtained. FINDINGS: Suboptimal assessment due to patient rotation. Lung volumes are symmetric. Small pleural effusions are suspected with adjacent mild bibasilar opacities. Central vasculature is prominent. No appreciable pneumothorax. Cardiac silhouette appears prominent though is not well assessed due to rotation. No acute osseous findings are seen. XR/XR chest 1V IMPRESSION: Suboptimal assessment due to patient rotation. Suspect small pleural effusions with adjacent mild bibasilar opacities which may represent atelectasis or consolidation. Prominent central vasculature suggesting a degree of congestion.
[2023-08-28 23:34] VITALS: BP 138/99; PULSE 114; RESP 20; TEMP 37.4; O2SAT 94; BMI 24.2
--- NOTE | 2023-08-28 23:46 | ED.ALCOHOL ---
HPI - Alcohol General Chief Complaint: ETOH/Substance Use Stated Complaint: ams , found outside on sidewalk, etoh, per ems Time Seen by Provider: 08/28/23 23:27 Source: patient and EMS Mode of arrival: EMS Limitations: altered mental status History of Present Illness HPI narrative: 53 yo male with PMH of liver disease, ETOH abuse, CHF, was looking through the trash tonight after drinking per his reports he states he fell and could not get up denies trauma or LOC - EMS found him sleeping on the side of the road. He is intoxicated and cannot provide history but he is warm and I see no signs of trauma. just seen and treated 08/03 - 08/16 here for acute blood loss anemia after being found down 6.5 hemoglobin (transfused 3 units, FFP, platelets) at that time CT scan showed pancolitis and c diff, oral vanco done, aspiration pneumonia given doxy egd/colonoscopy 08/14/23 - varices banded, polyps hemorrhoids, portal hypertensive gastropathy. MD complaint: alcohol intoxication Last drink: Just prior to admission Chronic alcohol use: Yes Previous visits for alcohol intoxication: Yes Recent trauma: No Associated symptoms: denies other symptoms Treatments prior to arrival: none Related Data Previous Rx's Medication Instructions Recorded furosemide 40 mg tablet 40 mg PO DAILY #7 tabs 08/25/23 magnesium oxide 400 mg PO DAILY #7 tabs 08/25/23 Allergies Allergy/AdvReac Type Severity Reaction Status Date / Time No Known Allergies Allergy Verified 08/25/23 09:13 [No Known Allergies*] Review of Systems Review of Systems: ROS unable to be obtained due to intoxication [facility] Past Medical History Attestation statement: The following information was validated with the patient. Source: old records reviewed Medical History Malnutrition CHF (congestive heart failure) Anemia Aspiration pneumonia Pneumonia Hypomagnesemia Cirrhosis Thrombocytopenia Alcoholic liver disease Acute on chronic anemia CHF (congestive heart failure) Anemia Alcohol abuse Surgical History No history of previous surgery Social History Social History Household Members: Other Household Members Other:: pt homeless Housing: Homeless Housing Other:: homeless Do you presently have visiting nurse or other home services: No Alcohol intake: current Alcohol intake frequency: 0-2 drinks per day Alcohol type: beer Patient Tobacco Use Status: Former Tobacco user Quit Date: 12 years ago Tobacco use type: Cigarette Smoked in Last 30 Days: No Second Hand Smoke Exposure: No Use of substances other than those prescribed or required for medical reasons: No Advance Directives: Yes Advance Directives on File: Yes Advance Directives Date on File: 07/13/23 service: No Physical Exam ED Vital Signs: Vital Signs - 24 hr 08/28/23 23:34 08/29/23 00:05 08/29/23 00:48 Temperature 99.3 F 98.8 F Pulse Rate 114 H 110 H Respiratory Rate 20 20 18 Blood Pressure 138/99 H 99/38 L Pulse Oximetry 94 98 Oxygen Delivery Method Room Air Room Air Oxygen Flow Rate 08/29/23 00:58 08/29/23 01:05 08/29/23 02:04 Temperature 98.6 F 98.0 F Pulse Rate 113 H 106 H 111 H Respiratory Rate 18 18 20 Blood Pressure 128/65 136/50 L 117/55 L Pulse Oximetry 98 93 Oxygen Delivery Method Room Air Room Air Oxygen Flow Rate 08/29/23 04:05 Temperature 98.3 F Pulse Rate 112 H Respiratory Rate 20 Blood Pressure 133/70 Pulse Oximetry 94 Oxygen Delivery Method Nasal Cannula Oxygen Flow Rate 2 BMI result Body Mass Index 24.2 Appearance: intoxicated and sleepy keeps pulling blanket over his head. Oriented X to person and place. No acute distress. Eyes: Pupils equal, round and reactive to light. ENT: Pharynx normal. atrumatic Neck: Normal inspection. Neck supple. CVS: Normal heart rate and rhythm. Pulses normal. Respiratory: No respiratory distress. Breath sounds normal. Abdomen: Soft and nontender. Skin: Skin warm and dry. Normal skin color. Normal skin turgor. Extremities: trace pitting lower extremity edema. No calf ttp Neuro: Oriented X 2. No motor deficit. No sensory deficit. Course Course Course Narrative: emergency uncrossmatched blood ordered as lab informed me there would be a delay in releasing blood 3 units total ordered [place] as well anticipate FFP and possibly Vit K sandy CT scan ordered Reevaluation(s) Reevaluation #1: the patient has been very difficult and rude with staff and hard to get IV lines and BP measurements - he has called the RNs kyung mckeonple times I put the line in myself to assist. Reevaluation #2: will not allow CT scans will not hold still I am going to give zyprexa in order to obtain images. Reevaluation #3: unable to get CT scans agitated and will not lay down had to give IV versed to get CT scans he could be starting to exhibit some withdrawal as well Additional Reevaluation(s): will admit on 2nd unit of blood will give lasix with it BP stable, no cough, wbc count or fever no evidence of pneumonia at this time Medical Decision Making Medical Decision Making [facility] Narrative: 53 yo male with PMH of liver disease, ETOH abuse, CHF, here after being found on sidewalk he is intoxicated at this time but no signs of trauma - he is warm to the touch no signs of hypothermia will obtain basic labs given recent admission and given I cannot fully rule out injury will obtain CT head and cspine for trauma. Will observe until sober. Differential Diagnosis Differential Diagnoses: The differential diagnosis associated with the presentation includes ETOH intoxication - possible fall and trauma though undifferentiated Admission/Observation Consideration of admission/observation: Escalation of care including admission/observation considered will admit for acute on chronic anemia - VS stable doubt acute active bleed at this time hx of same in past with recent admission and DC 13 days ago Consult Healthcare Provider Management of the patient was discussed with: Hospitalist Lab Data [facility] Lab Attestation statement: I reviewed the patient's lab results. 08/29/23 00:08 08/29/23 00:08 Labs: Lab Results 08/29/23 08/29/23 Range/Units 00:08 00:45 WBC 4.4 L (4.8-10.8) X10*3/uL RBC 1.31 L D (4.60-5.80) X10*6/uL Hgb 4.4 L* D (14.0-18.0) g/dl Hct 13.7 L* D (42.0-52.0) % MCV 104.6 H (80.0-98.0) fL MCH 33.6 H (27.0-33.0) pg MCHC 32.1 (31.0-36.0) g/dl RDW 17.5 H (11.0-16.0) % Plt Count 37 L D (160-400) X10*3/uL MPV 11.2 (9.4-12.4) fL Immature Gran % (Auto) 0.5 H (0.0-0.4) % Neut % (Auto) 55.1 (45-73) % Lymph % (Auto) 23.9 (20-40) % [place] % (Auto) 18.7 H (2-11) % Eos % (Auto) 1.6 (0-4) % Baso % (Auto) 0.2 (0-2) % Lymph # (Auto) 1.1 L (1.2-4.9) X10*3/uL [place] # (Auto) 0.8 (0.1-1.2) X10*3/uL Eos # (Auto) 0.1 (0.0-0.4) X10*3/uL Baso # (Auto) 0.0 (0.0-0.2) X10*3/uL Abs Immat Gran (auto) 0.02 (0.00-0.03) X10*3/uL Absolute Neuts (auto) 2.4 (2.0-8.3) x10*3/uL Absolute Nucleated RBC 0.000 (0.0-0.012) X10*3/uL Nucleated RBC % (auto) 0.0 (0.0-0.2) /100WBC PT 22.8 H (11.1-13.3) SEC INR 1.9 H (0.9-1.1) APTT 39.4 H (26.0-36.4) SEC Sodium 139 (135-145) mmol/L Potassium 4.0 (3.3-5.1) mmol/L Chloride 108 (96-108) mmol/L Carbon Dioxide 17 L (22-29) mmol/L Anion Gap 18 (12-20) BUN 18 H (9-16) mg/dL Creatinine 0.70 (0.5-1.4) mg/dL Estim Creat Clear Calc 101.0 Estimated GFR > 60 Random Glucose 111 (60-115) mg/dL Calcium 9.2 (8.4-10.2) mg/dL Magnesium 1.6 (1.6-2.6) mg/dL Total Bilirubin 3.5 H (0.0-1.0) mg/dL Direct Bilirubin 1.1 H (0.0-0.5) mg/dL AST 35 (5-37) U/L ALT 10 (0-40) U/L Alkaline Phosphatase 60 (39-117) U/L Ammonia 117 H (13-55) umol/L Total Creatine Kinase 88 (38-174) U/L Troponin I High Sens 10.9 (<3.5-35.0) ng/L B-Natriuretic Peptide 109 H (<100) pg/mL Total Protein 7.1 (6.5-8.0) g/dL Albumin 2.9 L (3.5-5.0) g/dL Lipase 17 (8-78) U/L Ethyl Alcohol 121 mg/dL Blood Type B Positive Antibody Screen NEGATIVE Crossmatch (AHG) See Detail Independent Interpretation I performed an independent interpretation of an: EKG and CT Scan (no acute trauma) Interpretation: Rate: 112 Rhythm: sinus tachycardia [place]: normal Normal P waves. Normal ANDRIY. Normal QRS complex. ST T wave : nonspecific lateral leads qTC: prolonged prior studies: no sig ischemia possible limb lead reversal The study has been interpreted contemporaneously by me. . Radiology Impression Discussion of test interpretation with radiology: I have reviewed the radiologist's reading. Independent Historian Clinical information obtained from an independent historian. History obtained from or confirmed by: EMS External Record Review External record reviewed: Inpatient record Social Determinants Patient?s care significantly limited by Social Determinants of Health including: Inadequate housing, Low income and Problems related to primary support group Medications Administered Discontinued Medications Generic Name Dose Route Start Last Admin Trade Name Freq PRN Reason Stop Dose Admin Sodium Chloride 100 mls @ 100 mls/hr 08/29/23 00:16 08/29/23 01:01 Ns IV 08/29/23 01:15 100 mls/hr ONCE ONE Administration Phytonadione 5 mg/ Sodium 50.5 mls @ 50.5 mls/hr 08/29/23 01:14 08/29/23 02:47 Chloride IV 08/29/23 02:13 Infused ONCE ONE Infusion Magnesium Sulfate 2 gm in 50 mls @ 25 mls/hr 08/29/23 01:58 08/29/23 04:00 Magnesium Sulfate/H2o IV 08/29/23 03:57 25 mls/hr ONCE ONE Administration Iohexol 85 ml 08/29/23 03:44 08/29/23 03:44 Iohexol 350 Mg/Ml 100 Ml Infus..Btl IV 08/29/23 03:45 85 ml ONCE ONE Administration Lactulose 20 gm 08/29/23 03:08 08/29/23 04:00 Lactulose 20 Gm/30 Ml Solution PO 08/29/23 03:09 20 gm ONCE ONE Administration Midazolam HCl 2 mg 08/29/23 03:20 08/29/23 03:25 Midazolam Hcl/Pf 2 Mg/2 Ml Vial IVPUSH 08/29/23 03:21 2 mg ONCE ONE Administration Olanzapine 10 mg 08/29/23 02:40 08/29/23 02:44 Olanzapine Odt 10 Mg Tab.Rapdis TRANSLINGU 08/29/23 02:41 10 mg ONCE ONE Administration Procedures EJ/Peripheral Line Arm L: Time Out Performed: Yes Skin Cleansed in Sterile Fashion: Yes Size (gauge): 18 IV Secured and Dressing Applied: Yes Patient Tolerated Procedure: well and no complications Critical Care Time Critical Care Time Critical Care Time: Yes Total Critical Care Time: 60 Attestation: transfusions and treatment of anemia, 3 units of PRBCs and platelelts, Vit K I attest to this time spent taking care of the patient Discharge Plan Discharge Clinical Impression: Acute on chronic anemia, Thrombocytopenia Alcoholic intoxication Qualifiers: Complication of substance-induced condition: uncomplicated Qualified Code(s): F10.920 - Alcohol use, unspecified with intoxication, uncomplicated Patient Disposition: Admitted As Inpatient Prescriptions: No Action furosemide 40 mg tablet 40 mg PO DAILY Qty: 7 0RF magnesium oxide 400 mg magnesium tablet 400 mg PO DAILY Qty: 7 0RF
[2023-08-29] VITALS (32 sets, daily range): BP systolic 98–136; BP diastolic 38–81; PULSE 98–118; RESP 14–23; TEMP 36.7–37.7; O2SAT 92–98; BMI 23.0
[2023-08-29 00:13] LABS: Basophils Percent Auto 0.2 % (0-2); Eosinophils Absolute Auto 0.1 X10*3/uL (0.0-0.4); Eosinophils Percent Auto 1.6 % (0-4); Imm Gran Abs Auto 0.02 X10*3/uL (0.00-0.03); Imm Gran Pct Auto 0.5 % (0.0-0.4); Lymphocytes Absolute Auto 1.1 X10*3/uL (1.2-4.9); Lymphocytes Percent Auto 23.9 % (20-40); MANUAL DIFF FLAG NO; Mean Corpuscular HGB Conc 32.1 g/dl (31.0-36.0); Mean Corpuscular Hemoglobin 33.6 pg (27.0-33.0); Mean Corpuscular Volume 104.6 fL (80.0-98.0); Mean Platelet Volume 11.2 fL (9.4-12.4); Monocytes Absolute Auto 0.8 X10*3/uL (0.1-1.2); Monocytes Percent Auto 18.7 % (2-11); Neutrophils Absolute Auto 2.4 x10*3/uL (2.0-8.3); Neutrophils Percent Auto 55.1 % (45-73); Platelet Count 37 X10*3/uL (160-400); Red Blood Count 1.31 X10*6/uL (4.60-5.80); Red Cell Distribution Width 17.5 % (11.0-16.0); White Blood Count 4.4 X10*3/uL (4.8-10.8)
--- NOTE | 2023-08-29 00:14 | PC.NURSE ---
pt brought in by ambulance after being found on the side of the road in [place]. pt alert and oriented. pt reports having one beer prior to being brought to the ED. pt denies SI/HI at this time. pt resting comfortably at this time. denies pain. labs drawn and sent, pt calm and corporative.
[2023-08-29 00:17] LABS: Hematocrit 13.7 % (42.0-52.0); Hemoglobin 4.4 g/dl (14.0-18.0)
[2023-08-29 00:27] LABS: Ethanol 121 mg/dL
[2023-08-29 00:31] LABS: Anion Gap 18 (12-20); Blood Urea Nitrogen 18 mg/dL (9-16); Calcium 9.2 mg/dL (8.4-10.2); Carbon Dioxide 17 mmol/L (22-29); Chloride 108 mmol/L (96-108); Estimated Glomerular Filt Rate > 60; Glucose Random 111 mg/dL (60-115); Magnesium 1.6 mg/dL (1.6-2.6); Sodium 139 mmol/L (135-145)
--- NOTE | 2023-08-29 00:58 | PC.NURSE ---
d/t pt positioning pt blood pressure at start of transfusion not accurate. blood pressure at 0059 accurate blood pressure.
[2023-08-29 01:00] LABS: Ammonia 117 umol/L (13-55)
[2023-08-29 01:09] LABS: INTERNATIONAL NORM RATIO 1.9 (0.9-1.1); Prothrombin Time 22.8 SEC (11.1-13.3)
[2023-08-29 01:12] LABS: Partial Thromboplastin Time 39.4 SEC (26.0-36.4)
[2023-08-29 01:30] LABS: Troponin-I High Sensitivity 10.9 ng/L (<3.5-35.0)
--- NOTE | 2023-08-29 01:34 | ECG_ITS ---
Test Reason : WITHDRAWEL Blood Pressure : / mmHG Vent. Rate : 112 BPM Atrial Rate : 112 BPM P-R Int : 160 ms QRS Dur : 074 ms QT Int : 386 ms P-R-T Axes : 000 142 155 degrees QTc Int : 526 ms Suspect limb lead reversal, interpretation assumes no reversal Sinus tachycardia Low voltage QRS Nonspecific ST abnormality Lateral leads Abnormal ECG When compared with ECG of 21-AUG-2023 17:50, QRS axis Shifted right Questionable change in initial forces of Lateral leads Nonspecific T wave abnormality, worse in Inferior leads limb lead reversal suggest repeat study Referred By: Alley Del Rosario Electronically Signed By:JENNIFER KING MD
[2023-08-29] MEDS: Phytonadione (Vit K1) 5 MG in 0.9 % Sodium Chloride 50 ML 50.5 MG IV ×2 (01:44→10:09)
[2023-08-29 02:27] LABS: B Type Natriuretic Peptide 109 pg/mL (<100)
[2023-08-29] MEDS: OLANZapine ODT 10 MG TAB.RAPDIS TRANSLINGU (02:44)
[2023-08-29 02:59] LABS: Alanine Aminotransferase 10 U/L (0-40); Albumin Level 2.9 g/dL (3.5-5.0); Alkaline Phosphatase 60 U/L (39-117); Aspartate Amino Transferase 35 U/L (5-37); Bilirubin Direct 1.1 mg/dL (0.0-0.5); Bilirubin Total 3.5 mg/dL (0.0-1.0); Lipase 17 U/L (8-78); Total Protein 7.1 g/dL (6.5-8.0)
[2023-08-29] MEDS: Midazolam HCl/PF 2 MG/2 ML VIAL IVPUSH (03:25)
[2023-08-29] MEDS: iohexoL 350 MG/ML 100 ML INFUS..BTL 85 ML IV (03:44)
[2023-08-29] MEDS: Lactulose 20 GM/30 ML SOLUTION PO (04:00)
[2023-08-29] MEDS: Magnesium Sulfate/H2O 2 GM/50 ML PIGGYBACK IV (04:00)
[2023-08-29] MEDS: Furosemide 20 MG/2 ML VIAL IVPUSH (04:39)
--- NOTE | 2023-08-29 04:46 | P.HPHOSP_ITS ---
History of Present Illness Date of Service: 08/29/23 Chief Complaint: Encephalopathy This is a 53-year-old male with pertinent history of alcohol use disorder with alcoholic cirrhosis, congestive heart failure with preserved ejection fraction who was brought to the emergency department after he was found down. EMS states that he was sleeping on the side of the road and was intoxicated. Patient stated earlier that he was looking to the trash and fell. Admitted drinking alcohol. Patient is only oriented to self and above unable to provide full history. History obtained from ER provider and chart review. Unable to obtain review of systems. Of note, patient was recently admitted and discharged on 08/16 with sepsis due to C diff colitis. He was discharged on furosemide for decompensated diastolic heart failure. Had a recent EGD on 08/14 with varices. In the emergency department, patient's hemoglobin was found to be low and patient requiring supplemental oxygen Review of Systems 2 Review of Systems: Yes Unobtainable due to mental status PMFSH Medical History Malnutrition CHF (congestive heart failure) Anemia Aspiration pneumonia Pneumonia Hypomagnesemia Cirrhosis Thrombocytopenia Alcoholic liver disease Acute on chronic anemia CHF (congestive heart failure) Anemia Alcohol abuse Surgical History No history of previous surgery Social History Household Members: Other Household Members Other:: pt homeless Housing: Homeless Housing Other:: homeless Do you presently have visiting nurse or other home services: No Alcohol intake: current Alcohol intake frequency: 0-2 drinks per day Alcohol type: beer Patient Tobacco Use Status: Former Tobacco user Quit Date: 12 years ago Tobacco use type: Cigarette Smoked in Last 30 Days: No Second Hand Smoke Exposure: No Use of substances other than those prescribed or required for medical reasons: No Advance Directives: Yes Advance Directives on File: Yes Advance Directives Date on File: 07/13/23 service: No Meds Allergies Allergy/AdvReac Type Severity Reaction Status Date / Time No Known Allergies Allergy Verified 08/25/23 09:13 [No Known Allergies*] Active Medications: Current Medications Acetaminophen (Acetaminophen 325 Mg Tablet) 650 mg PO Q6H PRN PRN Reason: Pain, Mild (Pain Scale 1-3) Thiamine HCl 100 mg/ Sodium (Chloride) 101 mls @ 202 mls/hr IV ONCE ONE Stop: 08/29/23 05:12 Melatonin (Melatonin 3 Mg Tablet) 6 mg PO BEDTIME PRN PRN Reason: Insomnia Ondansetron HCl (Ondansetron Hcl 4 Mg/2 Ml Vial) 4 mg IVPUSH Q8H PRN PRN Reason: Nausea and Vomiting Sodium Chloride (0.9 % Sodium Chloride Flush 3 Ml Syringe) 3 ml IVFLUSH QSHIFT [facility] Physical Exam 2 Vital Signs and Narrative: Vital Signs: Last Vital Signs Temp 98.3 F 08/29/23 04:05 Pulse 112 H 08/29/23 04:05 Resp 20 08/29/23 04:05 BP 133/70 08/29/23 04:05 Pulse Ox 94 08/29/23 04:05 O2 Del Method Nasal Cannula 08/29/23 04:05 O2 Flow Rate 2 08/29/23 04:05 BMI result Body Mass Index 24.2 Middle-aged male lying in bed in no distress Neck supple Tachycardic with regular rhythm, S1-S2 heard Bilateral crackles without wheezing Abdomen soft nontender, no guarding, no rigidity Patient is lethargic and only eye opens to verbal stimulus, oriented to self, disoriented to place and time Psych: Drowsy No pedal edema Results Labs 08/29/23 00:08 08/29/23 00:08 Labs: Laboratory Results - last 24 hr 08/29/23 08/29/23 00:08 00:45 MCV 104.6 H MCH 33.6 H MCHC 32.1 RDW 17.5 H Plt Count 37 L D MPV 11.2 Immature Gran % (Auto) 0.5 H Neut % (Auto) 55.1 Lymph % (Auto) 23.9 [place] % (Auto) 18.7 H Eos % (Auto) 1.6 Baso % (Auto) 0.2 Lymph # (Auto) 1.1 L [place] # (Auto) 0.8 Eos # (Auto) 0.1 Baso # (Auto) 0.0 Abs Immat Gran (auto) 0.02 Absolute Neuts (auto) 2.4 Absolute Nucleated RBC 0.000 Nucleated RBC % (auto) 0.0 PT 22.8 H INR 1.9 H APTT 39.4 H Anion Gap 18 Estim Creat Clear Calc 101.0 Estimated GFR > 60 Random Glucose 111 Calcium 9.2 Magnesium 1.6 Total Bilirubin 3.5 H Direct Bilirubin 1.1 H AST 35 ALT 10 Alkaline Phosphatase 60 Ammonia 117 H Total Creatine Kinase 88 B-Natriuretic Peptide 109 H Total Protein 7.1 Albumin 2.9 L Lipase 17 Ethyl Alcohol 121 Blood Type B Positive Antibody Screen NEGATIVE Crossmatch (AHG) See Detail Imaging Radiologist's Impressions: Impressions Abdomen/Pelvis CT 08/29/23 03:35 IMPRESSION: 1. Limited evaluation throughout the abdomen/pelvis due to motion artifact. 2. Slightly nodular hepatic contour suggesting cirrhosis. Distal esophageal varices. Trace ascites. 3. Somewhat thick-walled appearance of the ascending colon, suboptimally assessed due to artifact. This could be due to portal colopathy versus infectious or inflammatory colitis in the proper clinical setting. 4. Small pleural effusions. Regions of adjacent bibasilar pulmonary opacity may represent atelectasis or consolidation. 5. Anasarca. Cervical Spine CT 08/29/23 03:35 IMPRESSION: HEAD: Suboptimal assessment due to motion artifact. No acute findings identified. CERVICAL SPINE: Significantly limited evaluation due to motion artifact, rendering the study essentially nondiagnostic for evaluation of fractures. If clinically warranted, repeat examination may be attempted when patient is able to remain still. Chest X-Ray 08/29/23 03:35 IMPRESSION: Suboptimal assessment due to patient rotation. Suspect small pleural effusions with adjacent mild bibasilar opacities which may represent atelectasis or consolidation. Prominent central vasculature suggesting a degree of congestion. Head CT 08/29/23 03:35 IMPRESSION: HEAD: Suboptimal assessment due to motion artifact. No acute findings identified. CERVICAL SPINE: Significantly limited evaluation due to motion artifact, rendering the study essentially nondiagnostic for evaluation of fractures. If clinically warranted, repeat examination may be attempted when patient is able to remain still. Assessment and Plan (1) Encephalopathy: Status: Acute (2) Acute on chronic anemia: Status: Acute Plan This is a 53-year-old male with pertinent history of alcohol use disorder with alcoholic cirrhosis, congestive heart failure with preserved ejection fraction who was brought to the emergency department after he was found down. #. Acute on chronic anemia: Likely blood loss. Does have a history of esophageal varices and portal hypertension. Will keep patient NPO and consult Gastroenterology, appreciate assistance. 2 units PRBC ordered in the ER. Monitor H&H #. Acute toxic encephalopathy in the setting of alcohol use. Monitor CIWA. Initiated thiamine and folic acid. Consulting Addiction Team #. Acute hypoxemic respiratory failure secondary to acute on chronic congestive heart failure with preserved ejection fraction. Imaging with anasarca. Initiating IV Lasix. Monitor supplemental oxygen and wean as tolerated #. Thrombocytopenia due to cirrhosis Med rec pending DVT prophylaxis: Mechanical Admit as inpatient and will require two night minimum hospital stay for close monitoring of H&H and supplemental oxygen. Specialist consult pending Time Spent With Patient Time: Total time managing care of this patient today ____ minutes. Quality Stroke Does the patient have a stroke diagnosis?: No VTE Prior VTE?: No VTE Risk Level:: Medical - moderate - high VTE Device Contraindication: N/A - Device Ordered VTE Drug Contraindication: Treatment Not Indicated
[2023-08-29 05:30] LABS: Amphetamine Screen Urine Not Detected (Not Detect); Barbiturates, Urine POSITIVE (Not Detect); Benzodiazepines Screen Urine POSITIVE (Not Detect); Cannabinoid Screen Urine Not Detected (Not Detect); Cocaine Screen Urine Not Detected (Not Detect); Fentanyl, urine Not Detected (Not Detect); Opiate Screen Urine Not Detected (Not Detect); Phencyclidine Screen Urine Not Detected (Not Detect)
[2023-08-29 05:50] LABS: MANUAL DIFF FLAG NO
[2023-08-29 05:51] LABS: Basophils Percent Auto 0.3 % (0-2); Eosinophils Absolute Auto 0.1 X10*3/uL (0.0-0.4); Eosinophils Percent Auto 2.4 % (0-4); Imm Gran Abs Auto 0.04 X10*3/uL (0.00-0.03); Lymphocytes Absolute Auto 1.2 X10*3/uL (1.2-4.9); Lymphocytes Percent Auto 30.6 % (20-40); Mean Corpuscular Hemoglobin 32.4 pg (27.0-33.0); Mean Corpuscular Volume 98.3 fL (80.0-98.0); Mean Platelet Volume 10.4 fL (9.4-12.4); Monocytes Absolute Auto 0.5 X10*3/uL (0.1-1.2); Monocytes Percent Auto 13.6 % (2-11); Neutrophils Percent Auto 52.1 % (45-73); Red Blood Count 1.79 X10*6/uL (4.60-5.80); Red Cell Distribution Width 18.5 % (11.0-16.0); White Blood Count 3.8 X10*3/uL (4.8-10.8)
[2023-08-29 05:54] LABS: Platelet Count 40 X10*3/uL (160-400)
[2023-08-29 05:55] LABS: Hemoglobin 5.8 g/dl (14.0-18.0)
[2023-08-29 05:56] LABS: Hematocrit 17.6 % (42.0-52.0)
--- NOTE | 2023-08-29 05:58 | PC.NURSE ---
Critical lab report to LAURA Dobson , Hemoglobin 5.8, Dr. Del Rosario to result.
[2023-08-29 06:04] LABS: Anion Gap 18 (12-20); Blood Urea Nitrogen 15 mg/dL (9-16); Calcium 9.5 mg/dL (8.4-10.2); Carbon Dioxide 18 mmol/L (22-29); Chloride 107 mmol/L (96-108); Creatinine Clr Calc Pharmacy 103.9; Estimated Glomerular Filt Rate > 60; Glucose Random 111 mg/dL (60-115); Potassium 3.9 mmol/L (3.3-5.1); Sodium 139 mmol/L (135-145)
[2023-08-29] MEDS: Pantoprazole Sodium 40 MG/10 ML VIAL 80 MG IVPUSH (06:19)
--- NOTE | 2023-08-29 07:25 | PC.NURSE ---
Pt alert to self only, just keeps saying leave me alone. Pt not following commands, pulling at lines, and clothes.Platelets issued and patient pulled out both IV's delaying the platelets transfusing. IV lines replaced, blood and platelets running. Pt given lasix in between the 2 units of RBC, lungs course, +2 pitting edema. BLE and swelling to hands.
--- NOTE | 2023-08-29 07:28 | PHA.MEDREC ---
Pharmacy Consult ? Medication Reconciliation Pharmacy has completed the medication reconciliation. Patient recently discharged, reports no home medications
[2023-08-29] MEDS: 0.9 % Sodium Chloride Flush 3 ML SYRINGE IVFLUSH ×2 (07:42→16:16)
[2023-08-29] MEDS: Furosemide 40 MG/4 ML VIAL IVPUSH (08:03)
[2023-08-29] MEDS: Folic Acid 1 MG TABLET PO (08:03)
[2023-08-29] MEDS: Thiamine HCL 100 MG in 0.9 % Sodium Chloride 100 ML 202 MG IV (08:03)
--- NOTE | 2023-08-29 08:20 | PC.NURSE ---
pt is alert and oriented, to self and place at this time, pt is a chronic alcoholic, pt does have chronic peding edema +2 in the lower extremities and they are slightly red in color at as well, tachy on the monitor
--- NOTE | 2023-08-29 08:24 | PM.GICN ---
History of Present Illness Data of Consult Service Date: 08/29/23 Primary Care Provider: [facility] HPI Reason for consult: anemia 53-year-old male with pertinent history of alcohol use disorder with alcoholic cirrhosis, congestive heart failure with preserved ejection fraction who I am seeing for assessment for anemia. Patient was found down and intoxicated from drinking alcohol. He had labs drawn and found to have HGB 4.4 and plts 40 with INR 1.9. He is orientated to place and person, unable to tell me exact circumstances why he is in hospital but says it is due to alcohol. Denies nose bleeds, rectal bleeding, melena, but does admit to midl epigastric discomfort. Appetite is poor, no nausea or vomiting. Denies SOB, chest pain or sputum. unclear if he has been compliant with medications prescribed after last discharge He had EGD, colo for Ix of anemia on prior admission 08/14/23 with variceal banding performed and few polyps removed. Review of Systems Review of Systems: Constitutional : No Weight loss, No Fever, No Chills ENT/Mouth : No sore throat, No Rhinorrhea Eyes: No Swelling, No Redness Cardiovascular : No Chest Pain, No SOB, No Edema Respiratory : No Cough, No Sputum, No Wheezing Gastrointestinal : see HPI Genitourinary : NO Dysuria, No Urinary Frequency, No Hematuria, No Urgency Musculoskeletal : No joint pain, No Myalgias, No Joint Swelling Skin : No Skin Lesions, No rash Neuro : + Weakness, No Numbness, No Dizziness, No Headache Psych : No Anxiety/Panic, No Depression Heme/Lymph: No Bruising, No Lymphadenopathy Endocrine : No Polyuria, No Polydipsia All other systems reviewed and are negative. [facility] Past Medical History Medical History Cirrhosis Malnutrition CHF (congestive heart failure) Anemia Aspiration pneumonia Pneumonia Hypomagnesemia Thrombocytopenia Alcoholic liver disease Acute on chronic anemia CHF (congestive heart failure) Anemia Alcohol abuse Family History Pertinent family history: No FH of liver disease Surgical History Surgical History No history of previous surgery Social History Social History Household Members: Other Household Members Other:: pt homeless Housing: Homeless Housing Other:: homeless Do you presently have visiting nurse or other home services: No Alcohol intake: current Alcohol intake frequency: 0-2 drinks per day Alcohol type: beer Patient Tobacco Use Status: Former Tobacco user Quit Date: 12 years ago Tobacco use type: Cigarette Second Hand Smoke Exposure: No Advance Directives Date on File: 07/13/23 service: No Meds Allergies Allergy/AdvReac Type Severity Reaction Status Date / Time No Known Allergies Allergy Verified 08/25/23 09:13 [No Known Allergies*] Active Medications: Current Medications Acetaminophen (Acetaminophen 325 Mg Tablet) 650 mg PO Q6H PRN PRN Reason: Pain, Mild (Pain Scale 1-3) Folic Acid (Folic Acid 1 Mg Tablet) 1 mg PO DAILY [facility] Last Admin: 08/29/23 08:03 Dose: 1 mg Furosemide (Furosemide 40 Mg/4 Ml Vial) 40 mg IVPUSH DAILY [facility]; Protocol Last Admin: 08/29/23 08:03 Dose: 40 mg Melatonin (Melatonin 3 Mg Tablet) 6 mg PO BEDTIME PRN PRN Reason: Insomnia Ondansetron HCl (Ondansetron Hcl 4 Mg/2 Ml Vial) 4 mg IVPUSH Q8H PRN PRN Reason: Nausea and Vomiting Sodium Chloride (0.9 % Sodium Chloride Flush 3 Ml Syringe) 3 ml IVFLUSH QSHIFT [facility] Last Admin: 08/29/23 07:42 Dose: 3 ml Thiamine HCl (Thiamine Hcl 100 Mg Tablet) 100 mg PO DAILY [facility] Home Medications Medication Instructions Recorded Confirmed Last Taken Type No Known Home Meds 08/29/23 08/29/23 Unknown History Physical Exam Vital Signs: Vital Signs: Last Vital Signs Temp 98.0 F 08/29/23 07:09 Pulse 116 H 08/29/23 07:09 Resp 19 08/29/23 07:09 BP 109/66 08/29/23 07:09 Pulse Ox 94 08/29/23 04:05 O2 Del Method Nasal Cannula 08/29/23 04:05 O2 Flow Rate 2 08/29/23 04:05 BMI result Body Mass Index 24.2 EXAM: GENERAL: The patient is dishevelled, slightly confused and occ garbled speech VITAL SIGNS:see workflow HEENT: Nonicteric sclerae, PERRLA, EOMI. Oropharynx clear. Moist mucous membranes. Conjunctivae appear well perfused. No thyroid mass. CHEST: Chest wall is nontender. HEART: Regular rate and rhythm without murmurs. LUNGS: Clear to auscultation bilaterally. ABDOMEN: Soft, positive bowel sounds, mildly tender epigastrium, no organomegaly.no flank tenderness RECTAL: Dark brown stool, not clearly melenic SKIN: No rash, no excessive bruising, petechiae, or purpura. NEUROLOGIC: Cranial nerves II-XII intact without motor/sensory deficit. slightly confused Psych: Appearance: disheveled Attitude: Guarded attititude/behavior present Results Labs 08/29/23 11:38 08/29/23 05:45 Labs: Short CBC 08/29/23 08/29/23 Range/Units 00:08 05:45 WBC 4.4 L 3.8 L (4.8-10.8) X10*3/uL Hgb 4.4 L* D 5.8 L* D (14.0-18.0) g/dl Hct 13.7 L* D 17.6 L* D (42.0-52.0) % Plt Count 37 L D 40 L (160-400) X10*3/uL BMP 08/29/23 08/29/23 00:08 05:45 Sodium 139 139 Potassium 4.0 3.9 Chloride 108 107 Carbon Dioxide 17 L 18 L BUN 18 H 15 Creatinine 0.70 0.68 Calcium 9.2 9.5 Cardiac Enzymes 08/29/23 Range/Units 00:08 Total Creatine Kinase 88 (38-174) U/L Liver Function 08/29/23 Range/Units 00:08 Total Bilirubin 3.5 H (0.0-1.0) mg/dL Direct Bilirubin 1.1 H (0.0-0.5) mg/dL AST 35 (5-37) U/L ALT 10 (0-40) U/L Alkaline Phosphatase 60 (39-117) U/L Albumin 2.9 L (3.5-5.0) g/dL Imaging CT scan - abdomen: Attestation: I personally reviewed and interpreted this imaging study as follows: My impression: edematous colon, distended bladder and GB with sludge/stone noted, pancreas appears normal -mild atherosclerosis , varices b/l pleural effusions and infiltrates Assessment and Plan (1) Acute on chronic anemia: Status: Acute (2) Alcoholic intoxication: Qualifiers: Complication of substance-induced condition: uncomplicated Qualified Code(s): F10.920 - Alcohol use, unspecified with intoxication, uncomplicated Status: Acute (3) Cirrhosis: Qualifiers: Hepatic cirrhosis type: alcoholic cirrhosis Status: Acute Plan 1/ Acute on chronic anemia possible from post variceal ulceration, mucosal bleeding due to low plts and high INR, alcoholic gastritis PLAN: 1/ Vit K 10 mg IV x 3 d 2/ cont with octreotide, PPI for the moment 3/ transfuse and resuscitate with target HGB around 8-9 g/dl 4/ EGD possibly tomorrow depending on clinical status Time Spent With Patient Time: Total time managing care of this patient today ____ minutes. Procedures Date of Service Date of Service: 08/29/23
--- NOTE | 2023-08-29 09:00 | PC.NURSE ---
pt fulling on medical equipment, pulling out his iv's, pt continuos on being incontinent of urine, and had three small tool stools, appears to be tarry/blood tinged
--- NOTE | 2023-08-29 09:30 | PC.NURSE ---
Addendum entered by Isabela Arellano 08/29/23 10:54: dr luis is aware of this incidence but still states he would like the Tylenol prior to the third unite of blood infusion Original Note: pt is tacy which he has been on and off on the monitor and its flagging reaction in tar for the platelets, pt is not having a reaction at this time
[2023-08-29] MEDS: Octreotide Acetate 500 MCG in 0.9 % Sodium Chloride 500 ML 50.1 MCG IVCONT ×2 (10:13→19:18)
[2023-08-29] MEDS: Folic Acid 1 MG in 0.9 % Sodium Chloride 50 ML 100.4 MG IV (10:29)
--- NOTE | 2023-08-29 11:00 | PC.NURSE ---
temp sensing delgado inserted, about 100ml of pale yellow urine in the bag at this time, verbal order by dr luis
[2023-08-29 11:10] LABS: OBS Int Ctl Valid YES; OBS1 POSITIVE (NEGATIVE)
[2023-08-29 11:46] LABS: Hematocrit 18.8 % (42.0-52.0); Hemoglobin 6.5 g/dl (14.0-18.0)
[2023-08-29 11:53] LABS: Ammonia 107 umol/L (13-55)
[2023-08-29] MEDS: Thiamine HCL 500 MG in 0.9 % Sodium Chloride 100 ML 210 MG IV ×2 (12:25→22:26)
--- NOTE | 2023-08-29 13:02 | P.CNID_ITS ---
History of Present Illness Data of Consult Service Date: 08/29/23 Requesting physician: Astrid Hines Primary Care Provider: [facility] Reason for consult: possible infection,prior Cdiff He presents after having difficulty ambulating and weakness. He has been drinking alcohol. He has had prior admission 08/03-08/16 for pancolitis/Cdiff. He has also had concern at that time for aspiration pneumonia. Review of Systems 2 Review of Systems: Yes all other systems are reviewed and are negative [facility] Past Medical History Medical History Malnutrition CHF (congestive heart failure) Anemia Aspiration pneumonia Pneumonia Hypomagnesemia Cirrhosis Thrombocytopenia Alcoholic liver disease Acute on chronic anemia CHF (congestive heart failure) Anemia Alcohol abuse Family History Family history: reviewed and not pertinent Surgical History Surgical History No history of previous surgery Social History Social History Household Members: Other Household Members Other:: pt homeless Housing: Homeless Housing Other:: homeless Do you presently have visiting nurse or other home services: No Alcohol intake: current Alcohol intake frequency: 0-2 drinks per day Alcohol type: beer Patient Tobacco Use Status: Former Tobacco user Quit Date: 12 years ago Tobacco use type: Cigarette Second Hand Smoke Exposure: No Advance Directives Date on File: 07/13/23 service: No Meds Allergies Allergy/AdvReac Type Severity Reaction Status Date / Time No Known Allergies Allergy Verified 08/25/23 09:13 [No Known Allergies*] Active Medications: Current Medications Acetaminophen (Acetaminophen 325 Mg Tablet) 650 mg PO Q6H PRN PRN Reason: Pain, Mild (Pain Scale 1-3) Furosemide (Furosemide 40 Mg/4 Ml Vial) 40 mg IVPUSH DAILY [facility]; Protocol Last Admin: 08/29/23 08:03 Dose: 40 mg Thiamine HCl 500 mg/ Sodium (Chloride) 105 mls @ 210 mls/hr IV Q12H [facility] Last Admin: 08/29/23 12:25 Dose: 210 mls/hr Folic Acid 1 mg/ Sodium (Chloride) 50.2 mls @ 100.4 mls/hr IV DAILY [facility] Last Infusion: 08/29/23 11:28 Dose: Infused Octreotide Acetate 500 mcg/ (Sodium Chloride) 501 mls @ 50.1 mls/hr IVCONT .Q10H [facility] Last Admin: 08/29/23 10:13 Dose: 50 mcg/hr, 50.1 mls/hr Melatonin (Melatonin 3 Mg Tablet) 6 mg PO BEDTIME PRN PRN Reason: Insomnia Ondansetron HCl (Ondansetron Hcl 4 Mg/2 Ml Vial) 4 mg IVPUSH Q8H PRN PRN Reason: Nausea and Vomiting Pantoprazole Sodium (Pantoprazole Sodium 40 Mg/10 Ml Vial) 40 mg IVPUSH BID@0630,1630 [facility] Pharmacy Consult (Consult Rx Etoh Phenob Im/Po) 1 each MISCELLANE ONCE PRN PRN Reason: Consult order Phenobarbital (Phenobarbital 15 Mg Tablet) 45 mg PO BID [facility]; Protocol Stop: 08/31/23 21:01 Phenobarbital (Phenobarbital 15 Mg Tablet) 15 mg PO BID [facility] Stop: 09/02/23 21:01 Phenobarbital (Phenobarbital 15 Mg Tablet) 15 mg PO DAILY [facility] Stop: 09/04/23 09:01 Phenobarbital Sodium (Phenobarbital Sodium 130 Mg/Ml Vial Im Q3hx2) 177 mg IM Q3H [facility]; Protocol Stop: 08/29/23 18:16 Sodium Chloride (0.9 % Sodium Chloride Flush 3 Ml Syringe) 3 ml IVFLUSH QSHIFT [facility] Last Admin: 08/29/23 07:42 Dose: 3 ml Home Medications Medication Instructions Recorded Confirmed Last Taken Type No Known Home Meds 08/29/23 08/29/23 Unknown History Physical Exam 2 Vital Signs: Vital Signs: Last Vital Signs Temp 99.0 F 08/29/23 12:39 Pulse 105 H 08/29/23 12:39 Resp 14 08/29/23 12:39 BP 113/81 08/29/23 12:39 Pulse Ox 97 08/29/23 12:00 O2 Del Method Nasal Cannula 08/29/23 12:00 O2 Flow Rate 2 08/29/23 12:00 BMI result Body Mass Index 23.0 Const: General: cooperative HEENT: Head: Yes normal to inspection Face and sinus: Yes normal facial exam Mouth: Normal oral and palatal mucosa present Teeth and gingiva: d entition normal Eyes: General: appearance normal, both eyes and all related structures P upils: Equal, round and reactive pupils present Resp: Effort & Inspection: normal respiratory effort Cardio: Rate: regular rate Rhythm: regular rhythm GI: Palpation (GI): Soft to palpation and nontender : General: Yes no CVA tenderness Back/Spine/Pelvis: Back: no CVA tenderness Skin: General skin exam: no rashes or lesions noted Neuro: General: moves all extremities Cranial nerves: Yes Equal, round and reactive pupils present Extrem: General: Yes normal to inspection Psych: Other: weakness but talking Appearance: grossly normal Results Labs 08/29/23 11:38 08/29/23 05:45 Labs: Short CBC 08/29/23 08/29/23 08/29/23 Range/Units 00:08 05:45 11:38 WBC 4.4 L 3.8 L (4.8-10.8) X10*3/uL Hgb 4.4 L* D 5.8 L* D 6.5 L* (14.0-18.0) g/dl Hct 13.7 L* D 17.6 L* D 18.8 L* (42.0-52.0) % Plt Count 37 L D 40 L (160-400) X10*3/uL BMP 08/29/23 08/29/23 00:08 05:45 Sodium 139 139 Potassium 4.0 3.9 Chloride 108 107 Carbon Dioxide 17 L 18 L BUN 18 H 15 Creatinine 0.70 0.68 Calcium 9.2 9.5 Cardiac Enzymes 08/29/23 Range/Units 00:08 Total Creatine Kinase 88 (38-174) U/L Liver Function 08/29/23 Range/Units 00:08 Total Bilirubin 3.5 H (0.0-1.0) mg/dL Direct Bilirubin 1.1 H (0.0-0.5) mg/dL AST 35 (5-37) U/L ALT 10 (0-40) U/L Alkaline Phosphatase 60 (39-117) U/L Albumin 2.9 L (3.5-5.0) g/dL Assessment and Plan (1) Encephalopathy: Status: Acute Do not see any infectious causes at this time Encephalopathy may likely be due to alcohol No diarrhea,just stool smearing (2) Alcoholic intoxication: Qualifiers: Complication of substance-induced condition: uncomplicated Qualified Code(s): F10.920 - Alcohol use, unspecified with intoxication, uncomplicated Status: Acute Plan No antibiotics at this time. Monitor clinical condition and Neurology if no improvement ?Lp Time Spent With Patient Time: Total time managing care of this patient today ____ minutes.
--- NOTE | 2023-08-29 13:06 | MHC.SLORD ---
Speech Language Pathology Order Status: Per RN, Pt NPO for procedure today. GEOINT ANALYST will follow-up tomorrow 08/30.
[2023-08-29] MEDS: Calcium Gluconate/NaCl,Iso-Osm 1 GM/50 ML PLAST..BAG IV (13:47)
[2023-08-29] MEDS: PHENobarbitaL sodium 130 MG/ML IM ONCE 236 MG IM (14:07)
[2023-08-29 14:13] LABS: Alanine Aminotransferase 11 U/L (0-40); Alkaline Phosphatase 60 U/L (39-117); Anion Gap 16 (12-20); Aspartate Amino Transferase 37 U/L (5-37); Bilirubin Total 5.2 mg/dL (0.0-1.0); Blood Urea Nitrogen 16 mg/dL (9-16); Calcium 9.3 mg/dL (8.4-10.2); Carbon Dioxide 22 mmol/L (22-29); Chloride 107 mmol/L (96-108); Creatinine Clr Calc Pharmacy 94.2; Estimated Glomerular Filt Rate > 60; Glucose Random 80 mg/dL (60-115); Magnesium 1.6 mg/dL (1.6-2.6); Phosphorus 5.8 mg/dL (2.7-4.5); Potassium 3.6 mmol/L (3.3-5.1); Sodium 141 mmol/L (135-145); Total Protein 7.3 g/dL (6.5-8.0)
[2023-08-29] MEDS: Pantoprazole Sodium 40 MG/10 ML VIAL IVPUSH (16:13)
--- NOTE | 2023-08-29 16:41 | PC.NURSE ---
ICU admit to 261 - patient came to unit at about 1105am. Patient lethargic, but arousable, neck contracted forward, patient guarded, resistive to care. Legs - 3-4+ edema - very sensitive to any tactile stimulation. Patient not diaphoretic, denies Nausea. No tremors noted. warm to touch, attempting to go to sleep on his side. Initially refusing pheno IM shot, attempted PO, patient refused - but able to give IM shot with Dr Benavides at bedside. Patient eventually cooperative with care. Patient not answering many questions... explaining plan of care multiple times. 3rd unit of blood given per order. Patient alert to name & vague about location - I am at a hospital but having to be redirected about which hospital. Temp max 99.8 - core temp. HR consistently ST - 110's. Attempted to give PO tylenol, patient refusing as well. No active or old bleeding noted. Brannon in place.
[2023-08-29 17:57] LABS: Appearance Urine Clear; Color Urine Yellow; Glucose Urine UA Negative (Negative); Leukocyte Esterase Urine Trace (Negative); Nitrite Urine Negative (Negative); PH 7.5 (5.0-9.0); Specific Gravity - Urine 1.025 (1.005-1.025); UMIC TRIGGER UA YES; Urine Blood Negative (Negative); Urine Ketones Trace mg/dL (Negative); Urine Protein Negative (Neg-Trace)
[2023-08-29] MEDS: Albumin Human 25 % 50 ML 100 ML IV (17:58)
[2023-08-29 18:02] LABS: Bacteria Urine None Seen (None Seen); Hyaline Casts Urine 0-2 /LPF (0-2); Squamous Epithelial Cell Urine 0-2 /HPF (0-2); WBC Urine 0-5 /HPF (0-5)
[2023-08-29 18:16] LABS: MANUAL DIFF FLAG NO
[2023-08-29 18:19] LABS: Basophils Percent Auto 0.7 % (0-2); Eosinophils Percent Auto 0.5 % (0-4); Hemoglobin 7.2 g/dl (14.0-18.0); Imm Gran Abs Auto 0.04 X10*3/uL (0.00-0.03); Lymphocytes Absolute Auto 0.8 X10*3/uL (1.2-4.9); Lymphocytes Percent Auto 18.9 % (20-40); Mean Corpuscular HGB Conc 34.6 g/dl (31.0-36.0); Mean Corpuscular Hemoglobin 31.9 pg (27.0-33.0); Mean Platelet Volume 10.7 fL (9.4-12.4); Monocytes Absolute Auto 0.6 X10*3/uL (0.1-1.2); Monocytes Percent Auto 15.7 % (2-11); Neutrophils Absolute Auto 2.5 x10*3/uL (2.0-8.3); Neutrophils Percent Auto 63.2 % (45-73); Red Blood Count 2.26 X10*6/uL (4.60-5.80); Red Cell Distribution Width 18.9 % (11.0-16.0)
[2023-08-29 18:23] LABS: Platelet Count 46 X10*3/uL (160-400)
[2023-08-29 18:25] LABS: Hematocrit 20.8 % (42.0-52.0)
[2023-08-29] MEDS: Phytonadione (Vit K1) 10 MG in 0.9 % Sodium Chloride 50 ML 51 MG IV (18:58)
[2023-08-29 22:26] LABS: OBS Int Ctl Valid YES; OBS1 POSITIVE (NEGATIVE)
[2023-08-29 23:03] LABS: CDiff Gene PCR NEGATIVE (Negative)
[2023-08-29] MEDS: Lactulose 20 GM/30 ML SOLUTION 40 GM PO (23:45)
[2023-08-29 23:55] LABS: Hematocrit 22.1 % (42.0-52.0); Hemoglobin 7.7 g/dl (14.0-18.0)
[2023-08-30] VITALS (24 sets, daily range): BP systolic 93–138; BP diastolic 33–85; PULSE 65–102; RESP 12–23; TEMP -17.6–37.5; O2SAT 88–100; BMI 23.1
--- NOTE | 2023-08-30 03:37 | PC.NURSE ---
Addendum entered by Richmond Damon RN 08/30/23 05:59: AWAKE ..ALERT..DISORIENTED TO RECENT EVENTS...CLIMBING OOB....ASSISTED BACK INTO BED.....INCONTINANT SMALL AMOUNT LIQUIED BLACK STOOL....PERSONAL CARE GIVEN...BED ALARM MAINTAINED...TELE-CAMERA UNAVAILABLE AR PRESENT..REMAINS CLOSE OBSERVATION NEXT TO NURSING STATION,,,DENIES DISCOMFORT.. Original Note: CARE ASSUMED 19:15....DROWSY TO AWAKE...DISORIENTED TO PLACE ABD TIME...RESISTANT TO CARE...OCTREOTIDE DRIP 50 MCG/HR....18:12 h/h= 7.2/29.8..4th UNIT PRBC ORDERED AND ADMINISTERED W/O INCIDENT...23:45 H/H= 7.7/22.1...FOR AM CBC PER ICU PA...INCONTINANT LOOSE BLACK-BROWN STOOL X2 OVERNIGHT....PER POOLING OPERATOR NOTE PATIENT PREVIOUSLY INCONTINANT STOOL X3 IN ER DEPT DAYS....AMMONIA LEVELS REVIEWED...PREVIOUSLY RECEIVED LACTULOSE 20 GRAMS PER JAN...STARTED LACTULOSE 40GRAMS PO TID PER ICU PA...1ST DOSE AT HS....LAST DOSE PHENOBARBITOL 175MG PO GIVEN 19:20...NAPPING INTERMITTANTLY OVERNIGHT BUT RESISTANT TO CARE WHEN AWAKENED..STATED WHO THE FUCK ARE UOU...GET THE FUCK AWAY FROM ME DURING PERSONAL CARE....EARLIER PATIENT BIT THIAMINE INFUSION TUBING IN HALF TOWARDS END OF INFUSION...S.TACH HR 100-110 DECREASED TO BSR HR 80'S-90'S....INMAN 35-60 CC/HR...REMAINS WITH GENERALIZED EDEMA...FOR AM LASIX PER JAN....NPO AFTER 12AM FOR ? UPPER ENDOSCOPY PER GI CONSULT NOTE...DENIES PAIN..CURRENTLY DOZING
[2023-08-30] MEDS: Octreotide Acetate 500 MCG in 0.9 % Sodium Chloride 500 ML 50.1 MCG IVCONT ×2 (04:58→15:12)
[2023-08-30 05:04] LABS: MANUAL DIFF FLAG NO
[2023-08-30 05:05] LABS: Basophils Percent Auto 0.7 % (0-2); Eosinophils Absolute Auto 0.1 X10*3/uL (0.0-0.4); Hematocrit 22.3 % (42.0-52.0); Hemoglobin 7.7 g/dl (14.0-18.0); Imm Gran Abs Auto 0.01 X10*3/uL (0.00-0.03); Imm Gran Pct Auto 0.3 % (0.0-0.4); Lymphocytes Absolute Auto 0.8 X10*3/uL (1.2-4.9); Lymphocytes Percent Auto 25.2 % (20-40); Mean Corpuscular HGB Conc 34.5 g/dl (31.0-36.0); Mean Corpuscular Hemoglobin 32.2 pg (27.0-33.0); Mean Corpuscular Volume 93.3 fL (80.0-98.0); Mean Platelet Volume 10.3 fL (9.4-12.4); Monocytes Absolute Auto 0.5 X10*3/uL (0.1-1.2); Neutrophils Absolute Auto 1.7 x10*3/uL (2.0-8.3); Neutrophils Percent Auto 54.8 % (45-73); Red Blood Count 2.39 X10*6/uL (4.60-5.80); Red Cell Distribution Width 18.6 % (11.0-16.0)
[2023-08-30 05:06] LABS: Platelet Count 45 X10*3/uL (160-400)
[2023-08-30 05:24] LABS: Alanine Aminotransferase 10 U/L (0-40); Albumin Level 2.7 g/dL (3.5-5.0); Alkaline Phosphatase 47 U/L (39-117); Anion Gap 14 (12-20); Aspartate Amino Transferase 36 U/L (5-37); Bilirubin Total 5.9 mg/dL (0.0-1.0); Blood Urea Nitrogen 13 mg/dL (9-16); Calcium 8.9 mg/dL (8.4-10.2); Carbon Dioxide 21 mmol/L (22-29); Chloride 112 mmol/L (96-108); Creatinine Clr Calc Pharmacy 90.6; Estimated Glomerular Filt Rate > 60; Glucose Random 114 mg/dL (60-115); Potassium 3.3 mmol/L (3.3-5.1); Sodium 144 mmol/L (135-145); Total Protein 6.5 g/dL (6.5-8.0)
[2023-08-30] MEDS: Pantoprazole Sodium 40 MG/10 ML VIAL IVPUSH ×2 (05:27→18:49)
[2023-08-30] MEDS: Folic Acid 1 MG in 0.9 % Sodium Chloride 50 ML 100.4 MG IV (08:06)
[2023-08-30] MEDS: Furosemide 40 MG/4 ML VIAL IVPUSH (08:06)
[2023-08-30] MEDS: PHENobarbitaL 15 MG TABLET 45 MG PO ×2 (08:07→20:55)
[2023-08-30] MEDS: Lactulose 20 GM/30 ML SOLUTION 40 GM PO (08:08)
[2023-08-30] MEDS: 0.9 % Sodium Chloride Flush 3 ML SYRINGE IVFLUSH ×2 (08:08→18:49)
--- NOTE | 2023-08-30 08:47 | PM.CCPN ---
Subjective Subjective Date of Service: 08/30/23 Interval History: no significant overnight events Critical Care Time (minutes): 60 Physical Exam Vital Signs: Vital Signs: Last Vital Signs Temp 99.0 F 08/30/23 08:00 Pulse 93 08/30/23 08:00 Resp 17 08/30/23 08:00 BP 115/63 08/30/23 08:00 Pulse Ox 97 08/30/23 08:00 O2 Del Method Room Air 08/30/23 08:00 O2 Flow Rate 2 08/30/23 07:00 BMI result Body Mass Index 23.1 Const: General: cooperative, healthy appearing, comfortable and no acute distress Orientation/consciousness: oriented to person and oriented to place HEENT: Head: Yes normal to inspection, Yes normocephalic and Yes atraumatic Eyes: General: appearance normal, both eyes and all related structures Neck: Neck: Yes normal visual inspection, Yes no meningeal signs and Yes supple Chest: Chest palpation & inspection: normal inspection of the chest Resp: Effort & Inspection: normal respiratory effort Cardio: Rate: regular rate Rhythm: regular rhythm Heart sounds: S1 normal heart sound present and S2 normal heart sound present GI: Inspection: Yes normal to inspection, No Abdominal wall edema and No distended Palpation (GI): Soft to palpation, not firm, nontender, no guarding and not rigid Skin: General skin exam: no rashes or lesions noted Neuro: General: oriented to person, oriented to place, moves all extremities, no meningeal signs and no focal motor deficits Extrem: General: Yes normal to inspection, Yes capillary refill normal and Yes no clubbing, cyanosis or edema Psych: Appearance: grossly normal Objective Data Labs 08/30/23 04:30 08/30/23 04:30 Labs: Laboratory Results - last 24 hr 08/29/23 08/29/23 08/29/23 00:45 11:00 11:38 WBC RBC Hgb 6.5 L* Hct 18.8 L* MCV MCH MCHC RDW Plt Count MPV Immature Gran % (Auto) Neut % (Auto) Lymph % (Auto) [place] % (Auto) Eos % (Auto) Baso % (Auto) Lymph # (Auto) [place] # (Auto) Eos # (Auto) Baso # (Auto) Abs Immat Gran (auto) Absolute Neuts (auto) Absolute Nucleated RBC Nucleated RBC % (auto) Sodium Potassium Chloride Carbon Dioxide Anion Gap BUN Creatinine Estim Creat Clear Calc Estimated GFR Random Glucose Calcium Phosphorus Magnesium Total Bilirubin AST ALT Alkaline Phosphatase Ammonia 107 H Total Protein Albumin Urine Color Urine Appearance Urine pH Ur Specific [place] Urine Protein Urine Glucose (UA) Urine Ketones Urine Blood Urine Nitrite Ur Leukocyte Esterase Urine RBC Urine WBC Ur Squamous Epith Cells Urine Bacteria Hyaline Casts Stool Occult Blood POSITIVE C. difficile Tox B Gene Blood Type B Positive Antibody Screen NEGATIVE ELLIOT, Polyspecific NEGATIVE Positive ELLIOT Work-up TNP Crossmatch ([facility]) See Detail 08/29/23 08/29/23 08/29/23 13:43 17:43 18:12 WBC 4.0 L RBC 2.26 L D Hgb 7.2 L Hct 20.8 L* MCV 92.0 D MCH 31.9 MCHC 34.6 RDW 18.9 H Plt Count 46 L MPV 10.7 Immature Gran % (Auto) 1.0 H Neut % (Auto) 63.2 Lymph % (Auto) 18.9 L [place] % (Auto) 15.7 H Eos % (Auto) 0.5 Baso % (Auto) 0.7 Lymph # (Auto) 0.8 L [place] # (Auto) 0.6 Eos # (Auto) 0.0 Baso # (Auto) 0.0 Abs Immat Gran (auto) 0.04 H Absolute Neuts (auto) 2.5 Absolute Nucleated RBC 0.000 Nucleated RBC % (auto) 0.0 Sodium 141 Potassium 3.6 Chloride 107 Carbon Dioxide 22 Anion Gap 16 BUN 16 Creatinine 0.75 Estim Creat Clear Calc 94.2 Estimated GFR > 60 Random Glucose 80 Calcium 9.3 Phosphorus 5.8 H Magnesium 1.6 Total Bilirubin 5.2 H AST 37 ALT 11 Alkaline Phosphatase 60 Ammonia Total Protein 7.3 Albumin 3.0 L Urine Color Yellow Urine Appearance Clear Urine pH 7.5 Ur Specific [place] 1.025 Urine Protein Negative Urine Glucose (UA) Negative Urine Ketones Trace Urine Blood Negative Urine Nitrite Negative Ur Leukocyte Esterase Trace H Urine RBC 3-5 H Urine WBC 0-5 Ur Squamous Epith Cells 0-2 Urine Bacteria None Seen Hyaline Casts 0-2 Stool Occult Blood C. difficile Tox B Gene Blood Type Antibody Screen ELLIOT, Polyspecific Positive ELLIOT Work-up Crossmatch ([facility]) 08/29/23 08/29/23 08/30/23 21:05 23:49 04:30 WBC 3.0 L RBC 2.39 L Hgb 7.7 L 7.7 L Hct 22.1 L 22.3 L MCV 93.3 MCH 32.2 MCHC 34.5 RDW 18.6 H Plt Count 45 L MPV 10.3 Immature Gran % (Auto) 0.3 Neut % (Auto) 54.8 Lymph % (Auto) 25.2 [place] % (Auto) 15.0 H Eos % (Auto) 4.0 Baso % (Auto) 0.7 Lymph # (Auto) 0.8 L [place] # (Auto) 0.5 Eos # (Auto) 0.1 Baso # (Auto) 0.0 Abs Immat Gran (auto) 0.01 Absolute Neuts (auto) 1.7 L Absolute Nucleated RBC 0.000 Nucleated RBC % (auto) 0.0 Sodium 144 Potassium 3.3 Chloride 112 H Carbon Dioxide 21 L Anion Gap 14 BUN 13 Creatinine 0.78 Estim Creat Clear Calc 90.6 Estimated GFR > 60 Random Glucose 114 Calcium 8.9 Phosphorus Magnesium Total Bilirubin 5.9 H AST 36 ALT 10 Alkaline Phosphatase 47 Ammonia Total Protein 6.5 Albumin 2.7 L Urine Color Urine Appearance Urine pH Ur Specific [place] Urine Protein Urine Glucose (UA) Urine Ketones Urine Blood Urine Nitrite Ur Leukocyte Esterase Urine RBC Urine WBC Ur Squamous Epith Cells Urine Bacteria Hyaline Casts Stool Occult Blood POSITIVE C. difficile Tox B Gene NEGATIVE Blood Type Antibody Screen ELLIOT, Polyspecific Positive ELLIOT Work-up Crossmatch ([facility]) Progress Note: A&P Assessment and plan (1) Cirrhosis: Status: Acute (2) Pancytopenia: Status: Acute (3) Alcoholic intoxication: Status: Acute Plan Assessment: 53 Y M, alcohol misuse, c/b cirrhosis, esophageal varices on EGD 08/14, HFpEF, recent admission C. difficile colitis; found down, intoxicated 08/28; work-up in ED significant for anemia N: encephalopathy; agitation, dexmedetomidine gtt; c/f alcohol withdrawal, phenobarbital protocol, high-dose thiamine CV: hemodynamically stable; continue to monitor; HFpEF R: no acute issues GI: alcohol misuse, c/b cirrhosis, esophageal varices; in setting of anemia, empiric pantoprazole; appreciate GI recommendations, possible EGD today : no acute issues H: pancytopenia; acute on chronic anemia; continue to monitor; transfuse as needed; thrombocytopenia; to avoid chemical DVT prophylaxis w/ thrombocytopenia <50 ID: leukopenia, though afebrile; no meningeal signs; prior C. difficile E: no acute issues Quality Stroke Does the patient have a stroke diagnosis?: No VTE Prior VTE?: No VTE Risk Level:: Medical - moderate - high VTE Device Contraindication: N/A - Device Ordered VTE Drug Contraindication: Treatment Not Indicated
--- NOTE | 2023-08-30 08:51 | MHC.SLORD ---
Speech Language Pathology Order Status: Per check in w/ RN, pt is NPO for procedure. [employer] to continue to follow for swallow eval after completion of procedure once pt is appropriate to participate.
--- NOTE | 2023-08-30 10:19 | MHC.CM.PN ---
CM MET WITH PT AT BEDSIDE IN ICU. PT DOES NOT WISH TO GO TO REHAB SHOULD THAT BE RECOMMENDED BUT WILL STILL THINK ABOUT IT BEFORE MAKING THAT DECISION. PT IS HOMELESS AND [place]ES [place] THE [address]. HAS A LOCAL FAMILY MEMBER WHO LETS HIM STAY AT TIMES (BROTHER JACQUI/HCP) COPY OF HCP ON FILE. PT HAS NO PCP. DP: PT WISHES TO RETURN TO STREET IN THE MOMENT BUT WILL CONTINUE TO RE APPROACH WITH DC OPTIONS. CM WILL CONTINUE TO FOLLOW FOR ANY CHANGE IN DC PLAN/NEEDS
[2023-08-30] MEDS: Thiamine HCL 500 MG in 0.9 % Sodium Chloride 100 ML 210 MG IV (11:23)
--- NOTE | 2023-08-30 13:15 | P.CDIM_ITS ---
PROVIDER RESPONSE TEXT: To clarify, the appropriate diagnosis supported by the clinical indicators: After study respiratory failure has been ruled out QUERY TEXT: PHYSICIAN'S DOCUMENTATION REQUEST Date of Query: 08/30/2023 12:35 PM EDT Patient Name: Charbel Delgado Admit Date: 08/29/2023 Dear Mary Benavides, A review of the medical record indicates additional documentation may be needed. Please review below and update the documentation accordingly. The patient's respiratory clinical indicators were the following: H&P 08/29 - Plan: Acute hypoxemic respiratory failure secondary to acute on chronic congestive heart failure with preserved ejection fraction. Imaging with anasarca, initiating IV lasix, monitor supplemental oxygen and wean as tolerated. pulse ox 98% RA placed on 2 liters NC pulse ox 94%. Based on the above information and the recognized standard for respiratory failure could you please v erify this diagnoses is still accurate and reflective of the patient s condition to ensure quality of the medical record. Respiratory failure is/was present and is a clinical diagnosis based on _(please include this additional support in the medical record) After study respiratory failure has been ruled out Other (explain)Clinically unable to determine (explain)Thank you, Rina Gutierrez, CCS, CDIS Use of terms such as suspected, likely, concern for, or probable (associated with a specific diagnosi s that is being evaluated, monitored, or treated as if it exists) are acceptable and can be coded in the inpatient se tting, when documented at the time of discharge. Please use your independent medical judgment in providing your response. THIS QUERY IS PART OF THE PERMANENT MEDICAL RECORD
--- NOTE | 2023-08-30 14:05 | MHC.RECOVRN ---
Chart reviewed after Addiction Medicine Consult received for alcohol use disorder. Pt had been brought to the ED by EMS after he was found sleeping on the side of the road intoxicated. Pt has history of alcohol use disorder with alcoholic cirrhosis, congestive heart failure with preserved ejection fraction. EMS states that he was sleeping on the side of the road and was intoxicated. Pt had been recently admitted and discharged on 08/16 with sepsis due to C diff colitis. Upon evaluation, pt admitted to the hospital for encephalopathy, currently in ICU. Spoke with pts RN, pt continues to be confused. Will attempt to meet with pt at a later time. Namrata Lindo APRN, aware.
[2023-08-30 15:48] LABS: MANUAL DIFF FLAG NO
[2023-08-30 15:51] LABS: Basophils Percent Auto 0.6 % (0-2); Eosinophils Absolute Auto 0.2 X10*3/uL (0.0-0.4); Eosinophils Percent Auto 4.9 % (0-4); Hematocrit 24.6 % (42.0-52.0); Hemoglobin 8.6 g/dl (14.0-18.0); Imm Gran Abs Auto 0.01 X10*3/uL (0.00-0.03); Imm Gran Pct Auto 0.3 % (0.0-0.4); Lymphocytes Absolute Auto 0.8 X10*3/uL (1.2-4.9); Lymphocytes Percent Auto 24.5 % (20-40); Mean Corpuscular Hemoglobin 32.6 pg (27.0-33.0); Mean Corpuscular Volume 93.2 fL (80.0-98.0); Mean Platelet Volume 10.2 fL (9.4-12.4); Monocytes Absolute Auto 0.5 X10*3/uL (0.1-1.2); Neutrophils Absolute Auto 1.8 x10*3/uL (2.0-8.3); Neutrophils Percent Auto 54.7 % (45-73); Red Blood Count 2.64 X10*6/uL (4.60-5.80); White Blood Count 3.3 X10*3/uL (4.8-10.8)
[2023-08-30 15:52] LABS: Platelet Count 51 X10*3/uL (160-400)
--- NOTE | 2023-08-30 16:54 | MHC.SHP ---
Pre-Procedural Eval Section A Date of Service: 08/30/23 The patient is an INPATIENT: Yes The History & Physical has been completed within 30 days and I have reviewed it.: Yes Section B Chief Complaint: Encephalopathy Allergies: Allergies Allergy/AdvReac Type Severity Reaction Status Date / Time No Known Allergies Allergy Verified 08/25/23 09:13 [No Known Allergies*] Plan Diagnosis/Plan: Unchanged I have reviewed the history and physical and performed a pertinent physical examination on my patient. No changes have occurred unless specified. Time Spent With Patient Time: Total time managing care of this patient today ____ minutes.
--- NOTE | 2023-08-30 16:55 | W.PM.OPN ---
Operative Note Operative Note Date of Service: 08/30/23 Narrative: Procedure Description: EGD Indication: anemia Anesthesia: MAC FLEXIBLE TRANSORAL UPPER GASTROINTESTINAL ENDOSCOPY UPPER ENDOSCOPY Consent: Indications for the procedure and potential complications of bleeding, perforation, reaction to medications and missed diagnosis were discussed with the patient and informed consent was obtained. Instrument: Olympus GIF H 190 J mid size upper endoscope Monitoring: Vital signs and clinical assessment, continuous EKG monitoring, Pulse oximetry, Carbon Dioxide monitoring and blood pressure monitoring were done throughout the procedure. Procedure: The patient was placed in the left lateral decubitis position and pre-procedure medications were administered and a bite block was placed. The endoscope was inserted into the mouth and advanced under direct vision to the third part of duodenum. A careful inspection was made as the upper endoscope was withdrawn including a retroflexed examination of the proximal stomach; Findings and interventions are described below. Findings: Larynx:normal Esophagus: GE junction at 40 cm, diaphragm hiatus at 40 cm, x 2 variceal cords grade I, with slough noted from prior banding. There was a red spot noted on one area which is suspected to have been a recent bleeding spot, initially a clip was applied but this fell off due to the scar tissue, there was oozing, so then a banding device was used to place x 2 bands, and then hemospray was applied. Stomach: Mosaic pattern consistent with portal hypertensive gastropathy. Grade 2 flap valve on retroflexed examination of the cardia. No gastric varices Duodenum: Normal bulb and descending duodenum, no blood seen Intervention: Banding of varices and post variceal bleed from esophageal ulceration from last banding Impression/Findings: esophageal varices, and ulceration PLAN: NPO for tonight and clears tomorrow then advance diet as tolerated carafate 1 g BID Pantoprazole 40 mg daily cont octreotide for 24 hrs repeat EGD in 4 weeks compliance with medications
--- NOTE | 2023-08-30 17:17 | P.CONAN_ITS ---
HPI - Anesthesia Eval Consult details Narrative: fir upper endoscopy Anesthesia Pre-Procedure Meds If Yes to any meds - educate patient: Pt education - increased risk of aspiration PMFSH Active Problems Active Problems: All Active Problems (Updated 08/30/23 @ 08:56 by Mary Benavides MD) Pancytopenia (Acute) Cirrhosis (Acute) Encephalopathy (Acute) Thrombocytopenia (Acute) Acute on chronic anemia (Acute) Alcoholic intoxication (Acute) Past Medical History Medical History Cirrhosis Malnutrition CHF (congestive heart failure) Anemia Aspiration pneumonia Pneumonia Hypomagnesemia Thrombocytopenia Alcoholic liver disease Acute on chronic anemia CHF (congestive heart failure) Anemia Alcohol abuse Family History Family history of problems with anesthesia: No Surgical History Surgical History No history of previous surgery History of Problems with Anesthesia: No Social History Social History Household Members: Other Household Members Other:: pt homeless Housing: Homeless Housing Other:: homeless Do you presently have visiting nurse or other home services: No Alcohol intake: current Alcohol intake frequency: 0-2 drinks per day Alcohol type: beer Patient Tobacco Use Status: Former Tobacco user Quit Date: 12 years ago Tobacco use type: Cigarette Second Hand Smoke Exposure: No Advance Directives Date on File: 07/13/23 service: No Meds Allergies Allergy/AdvReac Type Severity Reaction Status Date / Time No Known Allergies Allergy Verified 08/25/23 09:13 [No Known Allergies*] Active Medications: Current Medications Acetaminophen (Acetaminophen 325 Mg Tablet) 650 mg PO Q6H PRN PRN Reason: Pain, Mild (Pain Scale 1-3) Furosemide (Furosemide 40 Mg/4 Ml Vial) 40 mg IVPUSH DAILY [facility]; Protocol Last Admin: 08/30/23 08:06 Dose: 40 mg Thiamine HCl 500 mg/ Sodium (Chloride) 105 mls @ 210 mls/hr IV Q12H [facility] Last Infusion: 08/30/23 12:08 Dose: Infused Folic Acid 1 mg/ Sodium (Chloride) 50.2 mls @ 100.4 mls/hr IV DAILY [facility] Last Infusion: 08/30/23 08:43 Dose: Infused Octreotide Acetate 500 mcg/ (Sodium Chloride) 501 mls @ 50.1 mls/hr IVCONT .Q10H [facility] Last Admin: 08/30/23 15:12 Dose: 50 mcg/hr, 50.1 mls/hr Lactulose (Lactulose 20 Gm/30 Ml Solution) 40 gm PO TID [facility] Last Admin: 08/30/23 15:57 Dose: Not Given Melatonin (Melatonin 3 Mg Tablet) 6 mg PO BEDTIME PRN PRN Reason: Insomnia Ondansetron HCl (Ondansetron Hcl 4 Mg/2 Ml Vial) 4 mg IVPUSH Q8H PRN PRN Reason: Nausea and Vomiting Pantoprazole Sodium (Pantoprazole Sodium 40 Mg/10 Ml Vial) 40 mg IVPUSH BID@0630,1630 [facility] Last Admin: 08/30/23 05:27 Dose: 40 mg Pharmacy Consult (Consult Rx Etoh Phenob Im/Po) 1 each MISCELLANE ONCE PRN PRN Reason: Consult order Phenobarbital (Phenobarbital 15 Mg Tablet) 45 mg PO BID [facility]; Protocol Stop: 08/31/23 21:01 Last Admin: 08/30/23 08:07 Dose: 45 mg Phenobarbital (Phenobarbital 15 Mg Tablet) 15 mg PO BID [facility] Stop: 09/02/23 21:01 Phenobarbital (Phenobarbital 15 Mg Tablet) 15 mg PO DAILY [facility] Stop: 09/04/23 09:01 Sodium Chloride (0.9 % Sodium Chloride Flush 3 Ml Syringe) 3 ml IVFLUSH QSHIFT [facility] Last Admin: 08/30/23 08:08 Dose: 3 ml Home Medications Medication Instructions Recorded Confirmed Last Taken Type No Known Home Meds 08/29/23 08/29/23 Unknown History Exam Exam Date and Time: August 30, [id number] Height,Weight and Vital Signs: Height 5 ft 4 in Weight 61.1 kg Last Vital Signs Temp 99.4 F 08/30/23 16:38 Pulse 91 08/30/23 16:38 Resp 18 08/30/23 16:38 BP 123/62 08/30/23 16:38 Pulse Ox 96 08/30/23 16:38 O2 Del Method Room Air 08/30/23 16:38 O2 Flow Rate 2 08/30/23 07:00 Pertinent Lab Results Pertinent Lab Results: Laboratory Tests 08/29/23 08/29/23 08/29/23 00:08 00:45 05:14 WBC 4.4 L RBC 1.31 L D Hgb 4.4 L* D Hct 13.7 L* D MCV 104.6 H MCH 33.6 H MCHC 32.1 RDW 17.5 H Plt Count 37 L D MPV 11.2 Immature Gran % (Auto) 0.5 H Neut % (Auto) 55.1 Lymph % (Auto) 23.9 [place] % (Auto) 18.7 H Eos % (Auto) 1.6 Baso % (Auto) 0.2 Lymph # (Auto) 1.1 L [place] # (Auto) 0.8 Eos # (Auto) 0.1 Baso # (Auto) 0.0 Abs Immat Gran (auto) 0.02 Absolute Neuts (auto) 2.4 Absolute Nucleated RBC 0.000 Nucleated RBC % (auto) 0.0 PT 22.8 H INR 1.9 H APTT 39.4 H Sodium 139 Potassium 4.0 Chloride 108 Carbon Dioxide 17 L Anion Gap 18 BUN 18 H Creatinine 0.70 Estim Creat Clear Calc 101.0 Estimated GFR > 60 Random Glucose 111 Calcium 9.2 Phosphorus Magnesium 1.6 Total Bilirubin 3.5 H Direct Bilirubin 1.1 H AST 35 ALT 10 Alkaline Phosphatase 60 Ammonia 117 H Total Creatine Kinase 88 Troponin I High Sens 10.9 B-Natriuretic Peptide 109 H Total Protein 7.1 Albumin 2.9 L Lipase 17 Urine Color Urine Appearance Urine pH Ur Specific [place] Urine Protein Urine Glucose (UA) Urine Ketones Urine Blood Urine Nitrite Ur Leukocyte Esterase Urine RBC Urine WBC Ur Squamous Epith Cells Urine Bacteria Hyaline Casts Stool Occult Blood Urine Opiates Screen Not Detected Urine Fentanyl Screen Not Detected Ur Barbiturates Screen POSITIVE H Ur Phencyclidine Scrn Not Detected Ur Amphetamines Screen Not Detected U Benzodiazepines Scrn POSITIVE H Urine Cocaine Screen Not Detected U Marijuana (THC) Screen Not Detected Ethyl Alcohol 121 C. difficile Tox B Gene Blood Type B Positive Antibody Screen NEGATIVE ELLIOT, Polyspecific NEGATIVE Positive ELLIOT Work-up TNP Crossmatch ([facility]) See Detail 08/29/23 08/29/23 08/29/23 05:45 11:00 11:38 WBC 3.8 L RBC 1.79 L D Hgb 5.8 L* D 6.5 L* Hct 17.6 L* D 18.8 L* MCV 98.3 H D MCH 32.4 MCHC 33.0 RDW 18.5 H Plt Count 40 L MPV 10.4 Immature Gran % (Auto) 1.0 H Neut % (Auto) 52.1 Lymph % (Auto) 30.6 [place] % (Auto) 13.6 H Eos % (Auto) 2.4 Baso % (Auto) 0.3 Lymph # (Auto) 1.2 [place] # (Auto) 0.5 Eos # (Auto) 0.1 Baso # (Auto) 0.0 Abs Immat Gran (auto) 0.04 H Absolute Neuts (auto) 2.0 Absolute Nucleated RBC 0.000 Nucleated RBC % (auto) 0.0 PT INR APTT Sodium 139 Potassium 3.9 Chloride 107 Carbon Dioxide 18 L Anion Gap 18 BUN 15 Creatinine 0.68 Estim Creat Clear Calc 103.9 Estimated GFR > 60 Random Glucose 111 Calcium 9.5 Phosphorus Magnesium Total Bilirubin Direct Bilirubin AST ALT Alkaline Phosphatase Ammonia 107 H Total Creatine Kinase Troponin I High Sens B-Natriuretic Peptide Total Protein Albumin Lipase Urine Color Urine Appearance Urine pH Ur Specific [place] Urine Protein Urine Glucose (UA) Urine Ketones Urine Blood Urine Nitrite Ur Leukocyte Esterase Urine RBC Urine WBC Ur Squamous Epith Cells Urine Bacteria Hyaline Casts Stool Occult Blood POSITIVE Urine Opiates Screen Urine Fentanyl Screen Ur Barbiturates Screen Ur Phencyclidine Scrn Ur Amphetamines Screen U Benzodiazepines Scrn Urine Cocaine Screen U Marijuana (THC) Screen Ethyl Alcohol C. difficile Tox B Gene Blood Type Antibody Screen ELLIOT, Polyspecific Positive ELLIOT Work-up Crossmatch ([facility]) 08/29/23 08/29/23 08/29/23 13:43 17:43 18:12 WBC 4.0 L RBC 2.26 L D Hgb 7.2 L Hct 20.8 L* MCV 92.0 D MCH 31.9 MCHC 34.6 RDW 18.9 H Plt Count 46 L MPV 10.7 Immature Gran % (Auto) 1.0 H Neut % (Auto) 63.2 Lymph % (Auto) 18.9 L [place] % (Auto) 15.7 H Eos % (Auto) 0.5 Baso % (Auto) 0.7 Lymph # (Auto) 0.8 L [place] # (Auto) 0.6 Eos # (Auto) 0.0 Baso # (Auto) 0.0 Abs Immat Gran (auto) 0.04 H Absolute Neuts (auto) 2.5 Absolute Nucleated RBC 0.000 Nucleated RBC % (auto) 0.0 PT INR APTT Sodium 141 Potassium 3.6 Chloride 107 Carbon Dioxide 22 Anion Gap 16 BUN 16 Creatinine 0.75 Estim Creat Clear Calc 94.2 Estimated GFR > 60 Random Glucose 80 Calcium 9.3 Phosphorus 5.8 H Magnesium 1.6 Total Bilirubin 5.2 H Direct Bilirubin AST 37 ALT 11 Alkaline Phosphatase 60 Ammonia Total Creatine Kinase Troponin I High Sens B-Natriuretic Peptide Total Protein 7.3 Albumin 3.0 L Lipase Urine Color Yellow Urine Appearance Clear Urine pH 7.5 Ur Specific [place] 1.025 Urine Protein Negative Urine Glucose (UA) Negative Urine Ketones Trace Urine Blood Negative Urine Nitrite Negative Ur Leukocyte Esterase Trace H Urine RBC 3-5 H Urine WBC 0-5 Ur Squamous Epith Cells 0-2 Urine Bacteria None Seen Hyaline Casts 0-2 Stool Occult Blood Urine Opiates Screen Urine Fentanyl Screen Ur Barbiturates Screen Ur Phencyclidine Scrn Ur Amphetamines Screen U Benzodiazepines Scrn Urine Cocaine Screen U Marijuana (THC) Screen Ethyl Alcohol C. difficile Tox B Gene Blood Type Antibody Screen ELLIOT, Polyspecific Positive ELLIOT Work-up Crossmatch ([facility]) 08/29/23 08/29/23 08/30/23 21:05 23:49 04:30 WBC 3.0 L RBC 2.39 L Hgb 7.7 L 7.7 L Hct 22.1 L 22.3 L MCV 93.3 MCH 32.2 MCHC 34.5 RDW 18.6 H Plt Count 45 L MPV 10.3 Immature Gran % (Auto) 0.3 Neut % (Auto) 54.8 Lymph % (Auto) 25.2 [place] % (Auto) 15.0 H Eos % (Auto) 4.0 Baso % (Auto) 0.7 Lymph # (Auto) 0.8 L [place] # (Auto) 0.5 Eos # (Auto) 0.1 Baso # (Auto) 0.0 Abs Immat Gran (auto) 0.01 Absolute Neuts (auto) 1.7 L Absolute Nucleated RBC 0.000 Nucleated RBC % (auto) 0.0 PT INR APTT Sodium 144 Potassium 3.3 Chloride 112 H Carbon Dioxide 21 L Anion Gap 14 BUN 13 Creatinine 0.78 Estim Creat Clear Calc 90.6 Estimated GFR > 60 Random Glucose 114 Calcium 8.9 Phosphorus Magnesium Total Bilirubin 5.9 H Direct Bilirubin AST 36 ALT 10 Alkaline Phosphatase 47 Ammonia Total Creatine Kinase Troponin I High Sens B-Natriuretic Peptide Total Protein 6.5 Albumin 2.7 L Lipase Urine Color Urine Appearance Urine pH Ur Specific [place] Urine Protein Urine Glucose (UA) Urine Ketones Urine Blood Urine Nitrite Ur Leukocyte Esterase Urine RBC Urine WBC Ur Squamous Epith Cells Urine Bacteria Hyaline Casts Stool Occult Blood POSITIVE Urine Opiates Screen Urine Fentanyl Screen Ur Barbiturates Screen Ur Phencyclidine Scrn Ur Amphetamines Screen U Benzodiazepines Scrn Urine Cocaine Screen U Marijuana (THC) Screen Ethyl Alcohol C. difficile Tox B Gene NEGATIVE Blood Type Antibody Screen ELLIOT, Polyspecific Positive ELLIOT Work-up Crossmatch ([facility]) 08/30/23 15:31 WBC 3.3 L RBC 2.64 L Hgb 8.6 L Hct 24.6 L MCV 93.2 MCH 32.6 MCHC 35.0 RDW 19.0 H Plt Count 51 L MPV 10.2 Immature Gran % (Auto) 0.3 Neut % (Auto) 54.7 Lymph % (Auto) 24.5 [place] % (Auto) 15.0 H Eos % (Auto) 4.9 H Baso % (Auto) 0.6 Lymph # (Auto) 0.8 L [place] # (Auto) 0.5 Eos # (Auto) 0.2 Baso # (Auto) 0.0 Abs Immat Gran (auto) 0.01 Absolute Neuts (auto) 1.8 L Absolute Nucleated RBC 0.000 Nucleated RBC % (auto) 0.0 PT INR APTT Sodium Potassium Chloride Carbon Dioxide Anion Gap BUN Creatinine Estim Creat Clear Calc Estimated GFR Random Glucose Calcium Phosphorus Magnesium Total Bilirubin Direct Bilirubin AST ALT Alkaline Phosphatase Ammonia Total Creatine Kinase Troponin I High Sens B-Natriuretic Peptide Total Protein Albumin Lipase Urine Color Urine Appearance Urine pH Ur Specific [place] Urine Protein Urine Glucose (UA) Urine Ketones Urine Blood Urine Nitrite Ur Leukocyte Esterase Urine RBC Urine WBC Ur Squamous Epith Cells Urine Bacteria Hyaline Casts Stool Occult Blood Urine Opiates Screen Urine Fentanyl Screen Ur Barbiturates Screen Ur Phencyclidine Scrn Ur Amphetamines Screen U Benzodiazepines Scrn Urine Cocaine Screen U Marijuana (THC) Screen Ethyl Alcohol C. difficile Tox B Gene Blood Type Antibody Screen ELLIOT, Polyspecific Positive ELLIOT Work-up Crossmatch ([facility]) Airway Mallampati Class: II TM Dist: >3cm Neck ROM: Full Heart: rrr Assessment and Plan Assessment Anesthesia Assessment: Anesthesia Plan Discussed and Chart Reviewed Final Anesthetic Review Family History of Problems with Anesthesia: No History of Problems with Anesthesia: No NPO: Yes ASA Class: IV Final Preanesthetic Review: No Changes in Pt Med Stat, Meds/Allgs Chart Reviewed, Consent Obtained/Reviewed and Anes Risks/Benef Reviewed Patient Risk: High Procedure Risk: Intermediate Anesthetic Plan Anesthetic Plan: GA and MAC: (GA back up ) Disposition: Standard PACU
[2023-08-31] VITALS (7 sets, daily range): BP systolic 102–114; BP diastolic 56–67; PULSE 70–86; RESP 16–18; TEMP 36.1–36.7; O2SAT 95–99
[2023-08-31] MEDS: Thiamine HCL 500 MG in 0.9 % Sodium Chloride 100 ML 210 MG IV ×3 (00:17→23:01)
[2023-08-31] MEDS: 0.9 % Sodium Chloride Flush 3 ML SYRINGE IVFLUSH ×3 (00:18→15:54)
[2023-08-31] MEDS: Octreotide Acetate 500 MCG in 0.9 % Sodium Chloride 500 ML 50.1 MCG IVCONT ×2 (03:07→13:11)
[2023-08-31] MEDS: Pantoprazole Sodium 40 MG/10 ML VIAL IVPUSH (05:43)
[2023-08-31] MEDS: PHENobarbitaL 15 MG TABLET 45 MG PO ×2 (09:49→20:58)
[2023-08-31] MEDS: Furosemide 40 MG/4 ML VIAL IVPUSH (09:49)
[2023-08-31] MEDS: Folic Acid 1 MG in 0.9 % Sodium Chloride 50 ML 100.4 MG IV (10:18)
--- NOTE | 2023-08-31 13:18 | P.PNIM_ITS ---
Subjective Subjective Date of Service: 08/31/23 Interval History: Possible variceal bleed, toxic metabolic encephalopathy, CHF exacerbation Review of Systems getting more awake ,mental status slightly improving,no fevers Denies any episode of nausea vomiting or any bleeding Denies any abdominal pain. Physical Exam 2 Vital Signs: Vital Signs: Last Vital Signs Temp 98.0 F 08/31/23 07:36 Pulse 75 08/31/23 07:36 Resp 16 08/31/23 07:36 BP 110/56 L 08/31/23 07:36 Pulse Ox 98 08/31/23 07:36 O2 Del Method Nasal Cannula 08/31/23 07:36 O2 Flow Rate 2 08/31/23 07:36 BMI result Body Mass Index 23.1 Appearance: Alert.? Oriented X2 , generlaised weak cvs: rrr, [id number] . res: air entry fair ,diminshed at bases few cracles . abd: no rebound or guarding ,nt, bs present. ext pulses present , no cyanosi. neuro: axo3 , nonfocal. Objective Data Active Medications Acetaminophen (Acetaminophen 325 Mg Tablet) 650 mg PO Q6H PRN PRN Reason: Pain, Mild (Pain Scale 1-3) Furosemide (Furosemide 40 Mg/4 Ml Vial) 40 mg IVPUSH DAILY [facility]; Protocol Last Admin: 08/31/23 09:49 Dose: 40 mg Documented By: CHRISTOPHER Thiamine HCl 500 mg/ Sodium (Chloride) 105 mls @ 210 mls/hr IV Q12H [facility] Last Infusion: 08/31/23 12:14 Dose: Infused Documented By: CHRISTOPHER Folic Acid 1 mg/ Sodium (Chloride) 50.2 mls @ 100.4 mls/hr IV DAILY [facility] Last Infusion: 08/31/23 10:50 Dose: Infused Documented By: CHRISTOPHER Octreotide Acetate 500 mcg/ (Sodium Chloride) 501 mls @ 50.1 mls/hr IVCONT .Q10H [facility] Last Admin: 08/31/23 11:28 Dose: Not Given Documented By: CHRISTOPHER Non-Admin Reason: IV Running Lactulose (Lactulose 20 Gm/30 Ml Solution) 40 gm PO TID [facility] Last Admin: 08/31/23 10:15 Dose: Not Given Documented By: CHRISTOPHER Non-Admin Reason: Patient Refused Melatonin (Melatonin 3 Mg Tablet) 6 mg PO BEDTIME PRN PRN Reason: Insomnia Ondansetron HCl (Ondansetron Hcl 4 Mg/2 Ml Vial) 4 mg IVPUSH Q8H PRN PRN Reason: Nausea and Vomiting Pantoprazole Sodium (Pantoprazole Sodium 40 Mg/10 Ml Vial) 40 mg IVPUSH DAILY@0630 [facility] Pharmacy Consult (Consult Rx Etoh Phenob Im/Po) 1 each MISCELLANE ONCE PRN PRN Reason: Consult order Phenobarbital (Phenobarbital 15 Mg Tablet) 45 mg PO BID [facility]; Protocol Stop: 08/31/23 21:01 Last Admin: 08/31/23 09:49 Dose: 45 mg Documented By: CHRISTOPHER Phenobarbital (Phenobarbital 15 Mg Tablet) 15 mg PO BID [facility] Stop: 09/02/23 21:01 Phenobarbital (Phenobarbital 15 Mg Tablet) 15 mg PO DAILY [facility] Stop: 09/04/23 09:01 Sodium Chloride (0.9 % Sodium Chloride Flush 3 Ml Syringe) 3 ml IVFLUSH QSHIFT [facility] Last Admin: 08/31/23 09:50 Dose: 3 ml Documented By: CHRISTOPHER Sucralfate (Sucralfate 1 Gm Tablet) 1 gm PO BIDAC [facility] Labs 08/30/23 15:31 08/30/23 04:30 Labs: Laboratory Results - last 24 hr 08/30/23 15:31 MCV 93.2 MCH 32.6 MCHC 35.0 RDW 19.0 H Plt Count 51 L MPV 10.2 Immature Gran % (Auto) 0.3 Neut % (Auto) 54.7 Lymph % (Auto) 24.5 [place] % (Auto) 15.0 H Eos % (Auto) 4.9 H Baso % (Auto) 0.6 Lymph # (Auto) 0.8 L [place] # (Auto) 0.5 Eos # (Auto) 0.2 Baso # (Auto) 0.0 Abs Immat Gran (auto) 0.01 Absolute Neuts (auto) 1.8 L Absolute Nucleated RBC 0.000 Nucleated RBC % (auto) 0.0 Assessment and Plan (1) Encephalopathy: Status: Acute (2) Acute on chronic anemia: Status: Acute (3) Pancytopenia: Status: Acute Plan day3 53-year-old male with pertinent history of alcohol use disorder with alcoholic cirrhosis, congestive heart failure with preserved ejection fraction who was brought to the emergency department after he was found down-went to ICU due to possible were still bleed, acute blood loss anemia and encephalopathy-patient was transfused, IV octreotide and PPIs, monitor for alcohol withdrawal with phenobarb. Went for EGD-had esophageal varices banding-subsequently transferred to the floor for further management. acute toxic encephalopathy (multifactorial-alcohol use ,chf ,possible gi bleed) continue support for underlying conditions ,continue thiamine ,folic acid. Acute on chronic anemia due to acute blood loss and esophageal varices and portal hypertension. Received 4 PRBC and 1 platelet, EGD-had esophageal varices banding/hemospray. monitor H&H:8.6/24.6(improving). no new episode of bleed. Continue octreotide, ppi, carafate 1 g BID. Gi following Acute hypoxemic respiratory failure secondary to acute on chronic congestive heart failure with preserved ejection fraction. swellin improving,taper oxygen daily weight ,i/o monitering ( 6.7liter/5.4liter) Initiating IV Lasix. Monitor supplemental oxygen and wean as tolerated. pancytopenia /Thrombocytopenia due to cirrhosis,alcohol use . alcohol withdrawals : ciwa 4 continue pheonobarbital. dvt prophylax: scd . ongoing hospitalization need:Gi bleed -h/h monitering,iv octreotide, ppi, , chf exceerbation -need iv lasix and i/o monitering ,alochol withdrawals -on phenobarbital. updated his brothe rin detail at bedside. Time Spent With Patient Time: Total time managing care of this patient today ____ minutes. Quality Stroke Does the patient have a stroke diagnosis?: No VTE Prior VTE?: No VTE Risk Level:: Medical - moderate - high VTE Device Contraindication: N/A - Device Ordered VTE Drug Contraindication: Treatment Not Indicated
--- NOTE | 2023-08-31 13:28 | MHC.RECOVRN ---
Chart reviewed. Per pts RN, pt continues to be confused. Will meet with pt when appropriate. Namrata Lindo APRN, aware.
--- NOTE | 2023-08-31 14:33 | MHC.SL.SWA ---
Speech Pathologist Impression: Risk of Aspiration Due to: Poor PO Intake Reduced Cognition Dysphasia Diet Status: Liquid Consistency and Strategies for Safe Swallow: Liquid Intake Recommendation: Thin Liquid Intake Strategies: Unrestricted Solid Food Consistency: Dietary Recommendations: Regular Additional Modifications to Solid Foods: Patient is currently on clear liquid diet secondary to GI procedure 08/30. When patient is medically cleared recommend advance to unrestricted reqular diet with thin liquids. Patient can independently feed self. Oral Medication Intake: Whole with Liquid Please contact the pharmacy regarding appropriate crushable or liquid drug formulations that are available whenever modified delivery is recommended. Compensatory Strategies and Precautions to be Taken for Safe Swallow: Sitting Upright (90 deg) Supervision While Eating and Drinking for Safe Swallow: None Needed Foods to Avoid: Swallowing Recommended Treatments: Recommendation for Speech: NA:Typical Evaluation Comment: Patient presents with all aspects of oral motor function and all aspects of swallow WFL. Patient is currently on clear liquid diet secondary to GI procedure 08/30. When patient is medically cleared recommend advance to unrestricted regular diet with thin liquids. Patient can independently feed self. As patient is WFL, no further speech and language services recommended at this time. , ANTHONY notified of recommendation, RN in person. Please re-consult if further concerns arise, DC speech. Frequency/Duration: Date Range for Service Req: Timeline to reassess: Medical Social Consultant Clinican/Clinical Fellow: No Supervisory Statement: I have reviewed and agree with the student/clinical fellow's documentation: N/A Speech Language Pathologist: Ana Dickinson M.A., CCC-LAW ENFORCEMENT DIRECTOR
--- NOTE | 2023-08-31 14:51 | HO.POSTANES ---
Post Anesthesia Evaluation Post Anesthesia Evaluation Date of Service: 08/31/23 Vital Signs: Vital Signs Temp Pulse Resp BP Pulse Ox O2 Del Method O2 Flow Rate 08/31/23 12:00 86 08/31/23 07:36 98.0 F 75 16 110/56 L 98 Nasal Cannula 2 08/31/23 02:59 97.0 F 78 17 113/61 99 Nasal Cannula 2 Anesthesia: Monitored Mental Status: Awake Pain Control: Satisfactory Nausea/Vomiting: None Hydration: Adequate Anesthesia-Related Issues: No Anes. Related Issues
[2023-08-31] MEDS: Sucralfate 1 GM TABLET PO (15:54)
[2023-08-31] MEDS: Lactulose 20 GM/30 ML SOLUTION 40 GM PO (15:54)
[2023-09-01] MEDS: Octreotide Acetate 500 MCG in 0.9 % Sodium Chloride 500 ML 50.1 MCG IVCONT (00:15)
[2023-09-01 03:20] VITALS: BP 98/54; PULSE 74; RESP 17; TEMP 36.3; O2SAT 95
[2023-09-01] MEDS: Pantoprazole Sodium 40 MG/10 ML VIAL IVPUSH (05:45)
[2023-09-01 06:00] VITALS: BMI 23.2
[2023-09-01] MEDS: 0.9 % Sodium Chloride Flush 3 ML SYRINGE IVFLUSH ×3 (07:15→20:07)
[2023-09-01] MEDS: Omeprazole 40 MG CAPSULE.DR PO (07:47)
[2023-09-01] MEDS: Sucralfate 1 GM TABLET PO ×2 (07:47→16:20)
[2023-09-01] MEDS: Albumin Human 25 % 50 ML 100 ML IV (07:57)
[2023-09-01 08:00] VITALS: BP 109/61; PULSE 70; RESP 18; TEMP 36.8; O2SAT 95
[2023-09-01] MEDS: Furosemide 20 MG TABLET PO ×2 (08:43→16:20)
[2023-09-01] MEDS: PHENobarbitaL 15 MG TABLET PO ×2 (08:43→20:08)
[2023-09-01] MEDS: Lactulose 20 GM/30 ML SOLUTION 40 GM PO ×2 (08:44→15:41)
[2023-09-01] MEDS: Folic Acid 1 MG in 0.9 % Sodium Chloride 50 ML 100.4 MG IV (08:47)
[2023-09-01 09:50] LABS: Hematocrit 24.8 % (42.0-52.0); Hemoglobin 8.2 g/dl (14.0-18.0)
[2023-09-01] MEDS: Thiamine HCL 500 MG in 0.9 % Sodium Chloride 100 ML 210 MG IV ×2 (11:23→21:55)
[2023-09-01 12:00] VITALS: BP 109/63; PULSE 82; RESP 16; TEMP 37.4; O2SAT 93
--- NOTE | 2023-09-01 14:15 | PC.NURSE ---
F/C removed at 14:00 this Day.
[2023-09-01 15:33] VITALS: BP 103/51; PULSE 78; RESP 18; TEMP 37.2; O2SAT 93
--- NOTE | 2023-09-01 16:03 | HO.PM.IMPN ---
Subjective Subjective Date of Service: 09/01/23 Interval History: Possible variceal bleed, toxic metabolic encephalopathy, CHF exacerbation Review of Systems mental status seems similar Denies any nausea vomiting or abdominal pain or fever no new episode of bleeding Physical Exam Vital Signs: Vital Signs: Last Vital Signs Temp 98.9 F 09/01/23 15:33 Pulse 78 09/01/23 15:33 Resp 18 09/01/23 15:33 BP 103/51 L 09/01/23 15:33 Pulse Ox 93 09/01/23 15:33 O2 Del Method Room Air 09/01/23 15:33 O2 Flow Rate 1 08/31/23 16:00 BMI result Body Mass Index 23.2 Appearance: Alert.? Oriented X2 , generlaised weak cvs: rrr, [id number] . res: air entry fair ,diminshed at bases few cracles . abd: no rebound or guarding ,nt, bs present. ext pulses present , no cyanosi. neuro: axo3 , nonfocal. Objective Data Active Medications Acetaminophen (Acetaminophen 325 Mg Tablet) 650 mg PO Q6H PRN PRN Reason: Pain, Mild (Pain Scale 1-3) Folic Acid (Folic Acid 1 Mg Tablet) 1 mg PO DAILY [facility] Furosemide (Furosemide 20 Mg Tablet) 20 mg PO BID@0900,1800 [facility]; Protocol Last Admin: 09/01/23 08:43 Dose: 20 mg Documented By: SUPA Thiamine HCl 500 mg/ Sodium (Chloride) 105 mls @ 210 mls/hr IV Q12H [facility] Last Infusion: 09/01/23 12:02 Dose: Infused Documented By: SUPA Lactulose (Lactulose 20 Gm/30 Ml Solution) 40 gm PO TID [facility] Last Admin: 09/01/23 15:41 Dose: 40 gm Documented By: SUPA Melatonin (Melatonin 3 Mg Tablet) 6 mg PO BEDTIME PRN PRN Reason: Insomnia Omeprazole (Omeprazole 40 Mg Donnell.) 40 mg PO DAILY@0630 [facility] Last Admin: 09/01/23 07:47 Dose: 40 mg Documented By: SUPA Ondansetron HCl (Ondansetron Hcl 4 Mg/2 Ml Vial) 4 mg IVPUSH Q8H PRN PRN Reason: Nausea and Vomiting Pharmacy Consult (Consult Rx Etoh Phenob Im/Po) 1 each MISCELLANE ONCE PRN PRN Reason: Consult order Phenobarbital (Phenobarbital 15 Mg Tablet) 15 mg PO BID [facility] Stop: 09/02/23 21:01 Last Admin: 09/01/23 08:43 Dose: 15 mg Documented By: SUPA Phenobarbital (Phenobarbital 15 Mg Tablet) 15 mg PO DAILY [facility] Stop: 09/04/23 09:01 Sodium Chloride (0.9 % Sodium Chloride Flush 3 Ml Syringe) 3 ml IVFLUSH QSHIFT [facility] Last Admin: 09/01/23 15:43 Dose: 3 ml Documented By: SUPA Sucralfate (Sucralfate 1 Gm Tablet) 1 gm PO BIDAC [facility] Last Admin: 09/01/23 07:47 Dose: 1 gm Documented By: SUPA Labs 09/01/23 09:27 08/30/23 04:30 Assessment and Plan (1) Encephalopathy: Status: Acute (2) Pancytopenia: Status: Acute Plan day4: 53-year-old male with pertinent history of alcohol use disorder with alcoholic cirrhosis, congestive heart failure with preserved ejection fraction who was brought to the emergency department after he was found down-went to ICU due to possible were still bleed, acute blood loss anemia and encephalopathy-patient was transfused, IV octreotide and PPIs, monitor for alcohol withdrawal with phenobarb. Went for EGD-had esophageal varices banding-subsequently transferred to the floor for further management. acute toxic encephalopathy (multifactorial-alcohol use ,chf ,possible gi bleed) continue support for underlying conditions ,continue thiamine ,folic acid. Acute on chronic anemia due to acute blood loss and esophageal varices and portal hypertension. Received 4 PRBC and 1 platelet, EGD-had esophageal varices banding/hemospray. monitor H&H:8.6/24.6(improving). no new episode of bleed. Continue octreotide, ppi, carafate 1 g BID. Gi following Acute hypoxemic respiratory failure secondary to acute on chronic congestive heart failure with preserved ejection fraction. swellin improving,taper oxygen daily weight ,i/o monitering ( 6.7liter/5.4liter) Initiating IV Lasix. Monitor supplemental oxygen and wean as tolerated. pancytopenia /Thrombocytopenia due to cirrhosis,alcohol use . alcohol withdrawals : ciwa 4 continue pheonobarbital. dvt prophylax: scd . ongoing hospitalization need:Gi bleed -h/h monitering,iv octreotide, ppi, , chf exceerbation -need iv lasix and i/o monitering ,alochol withdrawals -on phenobarbital. updated his brother in detail at bedside. Time Spent With Patient Time: Total time managing care of this patient today ____ minutes. Quality Stroke Does the patient have a stroke diagnosis?: No VTE Prior VTE?: No VTE Risk Level:: Medical - moderate - high VTE Device Contraindication: N/A - Device Ordered VTE Drug Contraindication: Treatment Not Indicated
--- NOTE | 2023-09-01 16:37 | PM.EVENT ---
Event Note Date of Service: 09/01/23 Event Note: Addiction consult placed Patient remains confused, interview deferred until Monday; Time Spent With Patient Time: Total time managing care of this patient today ____ minutes.
[2023-09-01 19:31] VITALS: BP 113/68; PULSE 68; RESP 18; TEMP 37; O2SAT 96
[2023-09-01] MEDS: Melatonin 3 MG TABLET 6 MG PO (20:08)
[2023-09-02] VITALS (7 sets, daily range): BP systolic 98–146; BP diastolic 51–58; PULSE 78–85; RESP 16–18; TEMP 36.4–37.2; O2SAT 91–95; BMI 23.8
[2023-09-02] MEDS: Omeprazole 40 MG CAPSULE.DR PO (06:08)
[2023-09-02] MEDS: Folic Acid 1 MG TABLET PO (07:53)
[2023-09-02] MEDS: PHENobarbitaL 15 MG TABLET PO ×2 (07:53→20:04)
[2023-09-02] MEDS: Sucralfate 1 GM TABLET PO ×2 (07:53→15:31)
[2023-09-02] MEDS: 0.9 % Sodium Chloride Flush 3 ML SYRINGE IVFLUSH ×3 (07:54→23:47)
[2023-09-02] MEDS: Lactulose 20 GM/30 ML SOLUTION 40 GM PO ×3 (07:54→20:04)
[2023-09-02] MEDS: Furosemide 20 MG TABLET PO ×2 (07:54→17:48)
[2023-09-02 09:42] LABS: Anion Gap 13 (12-20); Blood Urea Nitrogen 6 mg/dL (9-16); Calcium 8.5 mg/dL (8.4-10.2); Carbon Dioxide 23 mmol/L (22-29); Chloride 106 mmol/L (96-108); Creatinine Clr Calc Pharmacy 89.5; Estimated Glomerular Filt Rate > 60; Glucose Random 120 mg/dL (60-115); Sodium 139 mmol/L (135-145)
[2023-09-02] MEDS: Thiamine HCL 250 MG in 0.9 % Sodium Chloride 100 ML 210 MG IV ×2 (10:39→23:46)
--- NOTE | 2023-09-02 14:54 | HO.PM.IMPN ---
Subjective Subjective Date of Service: 09/02/23 Interval History: Possible variceal bleed, toxic metabolic encephalopathy, CHF exacerbation Review of Systems mental status seems slightly improving denies nausea vomiting or abdominal pain or fever ,no new episode of bleeding Physical Exam Vital Signs: Vital Signs: Last Vital Signs Temp 97.7 F 09/02/23 11:48 Pulse 82 09/02/23 11:48 Resp 16 09/02/23 11:48 BP 105/55 L 09/02/23 11:48 Pulse Ox 92 09/02/23 11:48 O2 Del Method Room Air 09/02/23 11:48 O2 Flow Rate 1 08/31/23 16:00 BMI result Body Mass Index 23.8 Appearance: Alert.? Oriented X2 , generlaised weak cvs: rrr, [id number] . res: air entry fair ,diminshed at bases few cracles . abd: no rebound or guarding ,nt, bs present. ext pulses present , no cyanosi. neuro: axo3 , nonfocal. Objective Data Active Medications Acetaminophen (Acetaminophen 325 Mg Tablet) 650 mg PO Q6H PRN PRN Reason: Pain, Mild (Pain Scale 1-3) Folic Acid (Folic Acid 1 Mg Tablet) 1 mg PO DAILY [facility] Last Admin: 09/02/23 07:53 Dose: 1 mg Documented By: VANESA Furosemide (Furosemide 20 Mg Tablet) 20 mg PO BID@0900,1800 [facility]; Protocol Last Admin: 09/02/23 07:54 Dose: 20 mg Documented By: VANESA Thiamine HCl 250 mg/ Sodium (Chloride) 102.5 mls @ 210 mls/hr IV Q12H [facility] Last Infusion: 09/02/23 11:18 Dose: Infused Documented By: VANESA Lactulose (Lactulose 20 Gm/30 Ml Solution) 40 gm PO TID [facility] Last Admin: 09/02/23 07:54 Dose: 40 gm Documented By: VANESA Melatonin (Melatonin 3 Mg Tablet) 6 mg PO BEDTIME PRN PRN Reason: Insomnia Last Admin: 09/01/23 20:08 Dose: 6 mg Documented By: ROMAN Omeprazole (Omeprazole 40 Mg Capsule.) 40 mg PO DAILY@0630 [facility] Last Admin: 09/02/23 06:08 Dose: 40 mg Documented By: ROMAN Ondansetron HCl (Ondansetron Hcl 4 Mg/2 Ml Vial) 4 mg IVPUSH Q8H PRN PRN Reason: Nausea and Vomiting Pharmacy Consult (Consult Rx Etoh Phenob Im/Po) 1 each MISCELLANE ONCE PRN PRN Reason: Consult order Phenobarbital (Phenobarbital 15 Mg Tablet) 15 mg PO BID [facility] Stop: 09/02/23 21:01 Last Admin: 09/02/23 07:53 Dose: 15 mg Documented By: VANESA Phenobarbital (Phenobarbital 15 Mg Tablet) 15 mg PO DAILY [facility] Stop: 09/04/23 09:01 Sodium Chloride (0.9 % Sodium Chloride Flush 3 Ml Syringe) 3 ml IVFLUSH QSHIFT [facility] Last Admin: 09/02/23 07:54 Dose: 3 ml Documented By: VANESA Sucralfate (Sucralfate 1 Gm Tablet) 1 gm PO BIDAC [facility] Last Admin: 09/02/23 07:53 Dose: 1 gm Documented By: VANESA Labs 09/01/23 09:27 09/02/23 08:53 Labs: Laboratory Results - last 24 hr 09/02/23 08:53 Hold Purple Top SEE NOTE Anion Gap 13 Estim Creat Clear Calc 89.5 Estimated GFR > 60 Random Glucose 120 H Calcium 8.5 Assessment and Plan (1) Pancytopenia: Status: Acute (2) Encephalopathy: Status: Acute (3) Hypokalemia: Status: Acute Plan day5: 53-year-old male with pertinent history of alcohol use disorder with alcoholic cirrhosis, congestive heart failure with preserved ejection fraction who was brought to the emergency department after he was found down-went to ICU due to possible were still bleed, acute blood loss anemia and encephalopathy-patient was transfused, IV octreotide and PPIs, monitor for alcohol withdrawal with phenobarb. Went for EGD-had esophageal varices banding-subsequently transferred to the floor for further management. acute toxic encephalopathy (multifactorial-alcohol use ,chf ,possible gi bleed) continue support for underlying conditions ,continue thiamine ,folic acid. Acute on chronic anemia due to acute blood loss and esophageal varices and portal hypertension. Received 4 PRBC and 1 platelet, EGD-had esophageal varices banding/hemospray. monitor H&H:8.6/24.6(improving). no new episode of bleed. Continue octreotide, ppi, carafate 1 g BID. Gi following Acute hypoxemic respiratory failure secondary to acute on chronic congestive heart failure with preserved ejection fraction. seemsimproving not on oxygen daily weight ,i/o monitering ( 10liter/7liter) switch to Lasix. pancytopenia /Thrombocytopenia due to cirrhosis,alcohol use . hypokalemia : repleted and moniter bmp alcohol withdrawals :still seems anxious intermitent. continue pheonobarbital. dvt prophylax: scd . ongoing hospitalization need: toxicmetabolic encephalopathy,,alochol withdrawals -on phenobarbital, mental status is not optimal yet. updated his brother 08/31/23. Time Spent With Patient Time: Total time managing care of this patient today ____ minutes. Quality Stroke Does the patient have a stroke diagnosis?: No VTE Prior VTE?: No VTE Risk Level:: Medical - moderate - high VTE Device Contraindication: N/A - Device Ordered VTE Drug Contraindication: Treatment Not Indicated
[2023-09-02] MEDS: Potassium Chloride Packet 20 MEQ PACKET 40 MEQ PO (15:31)
[2023-09-02] MEDS: Magnesium Oxide 400 MG TABLET PO (17:48)
[2023-09-03 04:00] VITALS: BP 100/59; PULSE 78; RESP 18; TEMP 36.6; O2SAT 96
[2023-09-03 06:00] VITALS: BMI 23.6
[2023-09-03] MEDS: Omeprazole 40 MG CAPSULE.DR PO (06:25)
[2023-09-03 07:47] VITALS: BP 104/64; PULSE 100; RESP 20; TEMP 36; O2SAT 96
[2023-09-03] MEDS: Magnesium Oxide 400 MG TABLET PO ×2 (08:10→16:47)
[2023-09-03] MEDS: Sucralfate 1 GM TABLET PO ×2 (08:10→16:47)
[2023-09-03] MEDS: Furosemide 20 MG TABLET PO ×2 (08:10→16:47)
[2023-09-03] MEDS: Folic Acid 1 MG TABLET PO (08:10)
[2023-09-03] MEDS: PHENobarbitaL 15 MG TABLET PO (08:10)
[2023-09-03] MEDS: 0.9 % Sodium Chloride Flush 3 ML SYRINGE IVFLUSH ×3 (08:10→22:37)
[2023-09-03] MEDS: Lactulose 20 GM/30 ML SOLUTION 40 GM PO (08:10)
[2023-09-03] MEDS: Thiamine HCL 250 MG in 0.9 % Sodium Chloride 100 ML 210 MG IV ×2 (10:32→23:42)
--- NOTE | 2023-09-03 11:58 | HO.PM.IMPN ---
Subjective Subjective Date of Service: 09/03/23 Interval History: Possible variceal bleed, toxic metabolic encephalopathy, CHF exacerbation Review of Systems mental status slowly improving denies nausea vomiting or abdominal pain or fever ,no new episode of bleeding Physical Exam Vital Signs: Vital Signs: Last Vital Signs Temp 96.8 F 09/03/23 07:47 Pulse 100 09/03/23 07:47 Resp 20 09/03/23 07:47 BP 104/64 09/03/23 07:47 Pulse Ox 96 09/03/23 07:47 O2 Del Method Room Air 09/03/23 07:47 O2 Flow Rate 1 08/31/23 16:00 BMI result Body Mass Index 23.6 Appearance: Alert.? Oriented X2 , generlaised weak cvs: rrr, [id number] . res: air entry fair ,diminshed at bases few cracles . abd: no rebound or guarding ,nt, bs present. ext pulses present , no cyanosi. neuro: axo3 , nonfocal. Objective Data Active Medications Acetaminophen (Acetaminophen 325 Mg Tablet) 650 mg PO Q6H PRN PRN Reason: Pain, Mild (Pain Scale 1-3) Folic Acid (Folic Acid 1 Mg Tablet) 1 mg PO DAILY [facility] Last Admin: 09/03/23 08:10 Dose: 1 mg Documented By: VANESA Furosemide (Furosemide 20 Mg Tablet) 20 mg PO BID@0900,1800 [facility]; Protocol Last Admin: 09/03/23 08:10 Dose: 20 mg Documented By: VANESA Thiamine HCl 250 mg/ Sodium (Chloride) 102.5 mls @ 210 mls/hr IV Q12H [facility] Last Infusion: 09/03/23 11:56 Dose: Infused Documented By: VANESA Lactulose (Lactulose 20 Gm/30 Ml Solution) 40 gm PO TID [facility] Last Admin: 09/03/23 08:10 Dose: 40 gm Documented By: VANESA Magnesium Oxide (Magnesium Oxide 400 Mg Tablet) 400 mg PO BIDPC [facility] Last Admin: 09/03/23 08:10 Dose: 400 mg Documented By: VANESA Melatonin (Melatonin 3 Mg Tablet) 6 mg PO BEDTIME PRN PRN Reason: Insomnia Last Admin: 09/01/23 20:08 Dose: 6 mg Documented By: ROMAN Omeprazole (Omeprazole 40 Mg Donnell.) 40 mg PO DAILY@0630 [facility] Last Admin: 09/03/23 06:25 Dose: 40 mg Documented By: AUDREY Ondansetron HCl (Ondansetron Hcl 4 Mg/2 Ml Vial) 4 mg IVPUSH Q8H PRN PRN Reason: Nausea and Vomiting Pharmacy Consult (Consult Rx Etoh Phenob Im/Po) 1 each MISCELLANE ONCE PRN PRN Reason: Consult order Phenobarbital (Phenobarbital 15 Mg Tablet) 15 mg PO DAILY [facility] Stop: 09/04/23 09:01 Last Admin: 09/03/23 08:10 Dose: 15 mg Documented By: VANESA Sodium Chloride (0.9 % Sodium Chloride Flush 3 Ml Syringe) 3 ml IVFLUSH QSHIFT [facility] Last Admin: 09/03/23 08:10 Dose: 3 ml Documented By: VANESA Sucralfate (Sucralfate 1 Gm Tablet) 1 gm PO BIDAC [facility] Last Admin: 09/03/23 08:10 Dose: 1 gm Documented By: VANESA Labs 09/01/23 09:27 09/03/23 08:07 Assessment and Plan (1) Hypokalemia: Status: Acute (2) Pancytopenia: Status: Acute (3) Encephalopathy: Status: Acute Plan day6: 53-year-old male with pertinent history of alcohol use disorder with alcoholic cirrhosis, congestive heart failure with preserved ejection fraction who was brought to the emergency department after he was found down-went to ICU due to possible were still bleed, acute blood loss anemia and encephalopathy-patient was transfused, IV octreotide and PPIs, monitor for alcohol withdrawal with phenobarb. Went for EGD-had esophageal varices banding-subsequently transferred to the floor for further management. acute toxic encephalopathy (multifactorial-alcohol use ,chf ,possible gi bleed) continue support for underlying conditions ,continue thiamine ,folic acid. Acute on chronic anemia due to acute blood loss and esophageal varices and portal hypertension. Received 4 PRBC and 1 platelet, EGD-had esophageal varices banding/hemospray. monitor H&H:8.6/24.6(improving). no new episode of bleed. Continue octreotide, ppi, carafate 1 g BID. Gi following Acute hypoxemic respiratory failure secondary to acute on chronic congestive heart failure with preserved ejection fraction. seemsimproving not on oxygen daily weight ,i/o monitering ( 10liter/7liter) switch to Lasix. pancytopenia /Thrombocytopenia due to cirrhosis,alcohol use . hypokalemia : repleted and moniter bmp alcohol withdrawals :still seems anxious intermitent. continue pheonobarbital. dvt prophylax: scd . ongoing hospitalization need: toxicmetabolic encephalopathy,,alochol withdrawals -on phenobarbital, mental status is not optimal yet. updated his brother 08/31/23. Time Spent With Patient Time: Total time managing care of this patient today ____ minutes. Quality Stroke Does the patient have a stroke diagnosis?: No VTE Prior VTE?: No VTE Risk Level:: Medical - moderate - high VTE Device Contraindication: N/A - Device Ordered VTE Drug Contraindication: Treatment Not Indicated
[2023-09-03 12:00] VITALS: BP 101/55; PULSE 83; RESP 16; TEMP 36.2; O2SAT 93
[2023-09-03 15:41] VITALS: BP 112/59; PULSE 82; RESP 18; TEMP 36.2; O2SAT 92
[2023-09-03 19:34] VITALS: BP 117/57; PULSE 90; RESP 18; TEMP 36.1; O2SAT 92
[2023-09-04] VITALS (9 sets, daily range): BP systolic 96–117; BP diastolic 50–66; PULSE 86–96; RESP 18–20; TEMP 36.8–37.6; O2SAT 92–97; BMI 23.5
[2023-09-04] MEDS: Omeprazole 40 MG CAPSULE.DR PO (06:27)
[2023-09-04] MEDS: Sucralfate 1 GM TABLET PO ×2 (08:58→16:15)
[2023-09-04] MEDS: PHENobarbitaL 15 MG TABLET PO (08:58)
[2023-09-04] MEDS: Magnesium Oxide 400 MG TABLET PO ×2 (08:58→16:15)
[2023-09-04] MEDS: 0.9 % Sodium Chloride Flush 3 ML SYRINGE IVFLUSH ×3 (08:59→23:42)
[2023-09-04] MEDS: Folic Acid 1 MG TABLET PO (08:59)
[2023-09-04] MEDS: Furosemide 20 MG TABLET PO ×2 (08:59→19:21)
[2023-09-04 09:33] LABS: Anion Gap 10 (12-20); Blood Urea Nitrogen 7 mg/dL (9-16); Calcium 8.9 mg/dL (8.4-10.2); Carbon Dioxide 23 mmol/L (22-29); Chloride 109 mmol/L (96-108); Creatinine Clr Calc Pharmacy 102.4; Estimated Glomerular Filt Rate > 60; Glucose Random 139 mg/dL (60-115); Sodium 138 mmol/L (135-145)
[2023-09-04 09:39] LABS: Hematocrit 27.2 % (42.0-52.0); Hemoglobin 8.8 g/dl (14.0-18.0); Mean Corpuscular HGB Conc 32.4 g/dl (31.0-36.0); Mean Corpuscular Hemoglobin 32.8 pg (27.0-33.0); Mean Corpuscular Volume 101.5 fL (80.0-98.0); Mean Platelet Volume 12.2 fL (9.4-12.4); Platelet Count 43 X10*3/uL (160-400); Red Blood Count 2.68 X10*6/uL (4.60-5.80); Red Cell Distribution Width 19.9 % (11.0-16.0); White Blood Count 5.4 X10*3/uL (4.8-10.8)
[2023-09-04] MEDS: Thiamine HCL 250 MG in 0.9 % Sodium Chloride 100 ML 210 MG IV ×2 (11:30→23:41)
--- NOTE | 2023-09-04 13:23 | P.PNIM_ITS ---
Subjective Subjective Date of Service: 09/04/23 Interval History: Possible variceal bleed, toxic metabolic encephalopathy, CHF exacerbation Review of Systems mental status somewhat improving but not near baseline yet no no fever or chest pain or shortness of breath or abdominal pain Physical Exam 2 Vital Signs: Vital Signs: Last Vital Signs Temp 99.2 F 09/04/23 12:00 Pulse 96 09/04/23 12:00 Resp 18 09/04/23 12:00 BP 100/55 L 09/04/23 12:00 Pulse Ox 93 09/04/23 12:00 O2 Del Method Room Air 09/04/23 12:00 O2 Flow Rate 1 08/31/23 16:00 BMI result Body Mass Index 23.5 Appearance: Alert.? Oriented X2 , generlaised weak cvs: rrr, [id number] . res: air entry fair improving ,no rales or wheezing . abd: no rebound or guarding ,nt, bs present. ext pulses present , no cyanosis. neuro: axo3 , nonfocal. Objective Data Active Medications Acetaminophen (Acetaminophen 325 Mg Tablet) 650 mg PO Q6H PRN PRN Reason: Pain, Mild (Pain Scale 1-3) Folic Acid (Folic Acid 1 Mg Tablet) 1 mg PO DAILY [facility] Last Admin: 09/04/23 08:59 Dose: 1 mg Documented By: SARAH Furosemide (Furosemide 20 Mg Tablet) 20 mg PO BID@0900,1800 [facility]; Protocol Last Admin: 09/04/23 08:59 Dose: 20 mg Documented By: SARAH Thiamine HCl 250 mg/ Sodium (Chloride) 102.5 mls @ 210 mls/hr IV Q12H [facility] Last Infusion: 09/04/23 12:34 Dose: Infused Documented By: SARAH Lactulose (Lactulose 20 Gm/30 Ml Solution) 40 gm PO TID [facility] Last Admin: 09/04/23 09:01 Dose: Not Given Documented By: SARAH Non-Admin Reason: episodes of diarrhea Magnesium Oxide (Magnesium Oxide 400 Mg Tablet) 400 mg PO BIDPC [facility] Last Admin: 09/04/23 08:58 Dose: 400 mg Documented By: SARAH Melatonin (Melatonin 3 Mg Tablet) 6 mg PO BEDTIME PRN PRN Reason: Insomnia Last Admin: 09/01/23 20:08 Dose: 6 mg Documented By: ROMAN Omeprazole (Omeprazole 40 Mg Capsule.) 40 mg PO DAILY@0630 [facility] Last Admin: 09/04/23 06:27 Dose: 40 mg Documented By: MINDA Ondansetron HCl (Ondansetron Hcl 4 Mg/2 Ml Vial) 4 mg IVPUSH Q8H PRN PRN Reason: Nausea and Vomiting Pharmacy Consult (Consult Rx Etoh Phenob Im/Po) 1 each MISCELLANE ONCE PRN PRN Reason: Consult order Sodium Chloride (0.9 % Sodium Chloride Flush 3 Ml Syringe) 3 ml IVFLUSH QSHIFT [facility] Last Admin: 09/04/23 08:59 Dose: 3 ml Documented By: SARAH Sucralfate (Sucralfate 1 Gm Tablet) 1 gm PO BIDAC [facility] Last Admin: 09/04/23 08:58 Dose: 1 gm Documented By: SARAH Labs 09/04/23 09:10 09/04/23 09:10 Labs: Laboratory Results - last 24 hr 09/04/23 09:10 MCV 101.5 H D MCH 32.8 MCHC 32.4 RDW 19.9 H Plt Count 43 L MPV 12.2 Absolute Nucleated RBC 0.000 Nucleated RBC % (auto) 0.0 Anion Gap 10 L Estim Creat Clear Calc 102.4 Estimated GFR > 60 Random Glucose 139 H Calcium 8.9 Assessment and Plan (1) Pancytopenia: Status: Acute (2) Hypokalemia: Status: Acute (3) Encephalopathy: Status: Acute Assessment and Plan: 53-year-old male with pertinent history of alcohol use disorder with alcoholic cirrhosis, congestive heart failure with preserved ejection fraction who was brought to the emergency department after he was found down-went to ICU due to possible were still bleed, acute blood loss anemia and encephalopathy-patient was transfused, IV octreotide and PPIs, monitor for alcohol withdrawal with phenobarb. Went for EGD-had esophageal varices banding-subsequently transferred to the floor for further management. acute toxic encephalopathy (multifactorial-alcohol use ,chf ,possible gi bleed) continue support for underlying conditions ,continue thiamine ,folic acid. Acute on chronic anemia due to acute blood loss and esophageal varices and portal hypertension. Received 4 PRBC and 1 platelet, EGD-had esophageal varices banding/hemospray. monitor H&H:8.6/24.6(improving). no new episode of bleed. Continue octreotide, ppi, carafate 1 g BID. Gi following Acute hypoxemic respiratory failure secondary to acute on chronic congestive heart failure with preserved ejection fraction. seemsimproving not on oxygen daily weight ,i/o monitering switch to Lasix,will add sprinolactone . pancytopenia /Thrombocytopenia due to cirrhosis,alcohol use . h/h similar stable around 8.8 range ,platlets 43 no bleeding hypokalemia : repleted and moniter bmp alcohol withdrawals :still seems anxious intermitent. continue pheonobarbital. dvt prophylax: scd . ongoing hospitalization need: toxicmetabolic encephalopathy,alochol withdrawals -on phenobarbital, mental status is not optimal yet. Time Spent With Patient Time: Total time managing care of this patient today ____ minutes. Quality Stroke Does the patient have a stroke diagnosis?: No VTE Prior VTE?: No VTE Risk Level:: Medical - moderate - high VTE Device Contraindication: N/A - Device Ordered VTE Drug Contraindication: Treatment Not Indicated
--- NOTE | 2023-09-04 13:24 | MHC.CM.PN ---
per rounds pt not ready for dcc dc plan remains tbd
--- NOTE | 2023-09-04 14:45 | MHC.RECOVRN ---
Met with pt in 350 to discuss alcohol use. Pt laying in bed, awake, alert, easily engages in conversation. Pt reports drinking 2 beers plus 1/2-1 pint of vodka daily on and off x 30 years. Pt reports being in [facility] x 6 months which was his longest period of abstinence. Pt also reports [facility] admissions x 3. In regards to desire to reduce or abstain, pt states First thing I'm doing when I get out of here is going to get a beer. Pt is not interested in reducing or abstaining from alcohol at this time. Discussed recovery support options if pt is interested in the future, provided with written materials. Pt denies questions or concerns for t/w.
[2023-09-04] MEDS: Lactulose 20 GM/30 ML SOLUTION 40 GM PO (16:14)
[2023-09-04] MEDS: Spironolactone 25 MG TABLET 12.5 MG PO (19:21)
[2023-09-05] VITALS (7 sets, daily range): BP systolic 96–120; BP diastolic 50–62; PULSE 60–90; RESP 16–18; TEMP 36.2–37.2; O2SAT 95–99; BMI 23.2
[2023-09-05] MEDS: Omeprazole 40 MG CAPSULE.DR PO (06:00)
[2023-09-05] MEDS: Folic Acid 1 MG TABLET PO (07:44)
[2023-09-05] MEDS: Sucralfate 1 GM TABLET PO ×2 (07:44→16:59)
[2023-09-05] MEDS: Spironolactone 25 MG TABLET 12.5 MG PO ×2 (07:45→16:58)
[2023-09-05] MEDS: Magnesium Oxide 400 MG TABLET PO ×2 (07:46→16:59)
[2023-09-05] MEDS: Furosemide 20 MG TABLET PO ×2 (07:46→16:59)
[2023-09-05] MEDS: 0.9 % Sodium Chloride Flush 3 ML SYRINGE IVFLUSH ×2 (07:46→17:02)
[2023-09-05] MEDS: Lactulose 20 GM/30 ML SOLUTION 40 GM PO ×2 (07:51→22:03)
--- NOTE | 2023-09-05 11:11 | P.PNIM_ITS ---
Subjective Subjective Date of Service: 09/05/23 Interval History: Possible variceal bleed, toxic metabolic encephalopathy, CHF exacerbation Review of Systems menatl status improving but not at his baseline eating breakfast ,denies chest pain or shortness of breath or abdominal pain Physical Exam 2 Vital Signs: Vital Signs: Last Vital Signs Temp 97.6 F 09/05/23 07:57 Pulse 80 09/05/23 07:57 Resp 18 09/05/23 07:57 BP 106/55 L 09/05/23 07:57 Pulse Ox 97 09/05/23 07:57 O2 Del Method Room Air 09/05/23 07:57 O2 Flow Rate 1 08/31/23 16:00 BMI result Body Mass Index 23.2 Appearance: Alert.? Oriented X2 , generlaised weak cvs: rrr, [id number] . res: air entry fair improving ,no rales or wheezing . abd: no rebound or guarding ,nt, bs present. ext pulses present , no cyanosis. neuro: axo3 , nonfocal. Objective Data Active Medications Acetaminophen (Acetaminophen 325 Mg Tablet) 650 mg PO Q6H PRN PRN Reason: Pain, Mild (Pain Scale 1-3) Folic Acid (Folic Acid 1 Mg Tablet) 1 mg PO DAILY [facility] Last Admin: 09/05/23 07:44 Dose: 1 mg Documented By: SARAH Furosemide (Furosemide 20 Mg Tablet) 20 mg PO BID@0900,1800 [facility]; Protocol Last Admin: 09/05/23 07:46 Dose: 20 mg Documented By: SARAH Thiamine HCl 250 mg/ Sodium (Chloride) 102.5 mls @ 210 mls/hr IV Q12H [facility] Last Infusion: 09/05/23 00:17 Dose: Infused Documented By: AUDREY Lactulose (Lactulose 20 Gm/30 Ml Solution) 40 gm PO TID [facility] Last Admin: 09/05/23 07:51 Dose: 40 gm Documented By: SARAH Magnesium Oxide (Magnesium Oxide 400 Mg Tablet) 400 mg PO BIDPC [facility] Last Admin: 09/05/23 07:46 Dose: 400 mg Documented By: SARAH Melatonin (Melatonin 3 Mg Tablet) 6 mg PO BEDTIME PRN PRN Reason: Insomnia Last Admin: 09/01/23 20:08 Dose: 6 mg Documented By: ROMAN Omeprazole (Omeprazole 40 Mg Capsule.) 40 mg PO DAILY@0630 [facility] Last Admin: 09/05/23 06:00 Dose: 40 mg Documented By: AUDREY Ondansetron HCl (Ondansetron Hcl 4 Mg/2 Ml Vial) 4 mg IVPUSH Q8H PRN PRN Reason: Nausea and Vomiting Pharmacy Consult (Consult Rx Etoh Phenob Im/Po) 1 each MISCELLANE ONCE PRN PRN Reason: Consult order Sodium Chloride (0.9 % Sodium Chloride Flush 3 Ml Syringe) 3 ml IVFLUSH QSHIFT [facility] Last Admin: 09/05/23 07:46 Dose: 3 ml Documented By: SARAH Spironolactone (Spironolactone 25 Mg Tablet) 12.5 mg PO BID@0900,1800 [facility]; Protocol Last Admin: 09/05/23 07:45 Dose: 12.5 mg Documented By: SARAH Comments: Sucralfate (Sucralfate 1 Gm Tablet) 1 gm PO BIDAC [facility] Last Admin: 09/05/23 07:44 Dose: 1 gm Documented By: SARAH Labs 09/04/23 09:10 09/04/23 09:10 Assessment and Plan (1) Hypokalemia: Status: Acute (2) Pancytopenia: Status: Acute (3) Encephalopathy: Status: Acute Assessment and Plan: 53-year-old male with pertinent history of alcohol use disorder with alcoholic cirrhosis, congestive heart failure with preserved ejection fraction who was brought to the emergency department after he was found down-went to ICU due to possible were still bleed, acute blood loss anemia and encephalopathy-patient was transfused, IV octreotide and PPIs, monitor for alcohol withdrawal with phenobarb. Went for EGD-had esophageal varices banding-subsequently transferred to the floor for further management. acute toxic encephalopathy (multifactorial-alcohol use ,chf ,possible gi bleed) continue support for underlying conditions ,continue thiamine ,folic acid. Acute on chronic anemia due to acute blood loss and esophageal varices and portal hypertension. Received 4 PRBC and 1 platelet, EGD-had esophageal varices banding/hemospray. monitor H&H:8.6/24.6(improving). no new episode of bleed. Continue octreotide, ppi, carafate 1 g BID. Gi following Acute hypoxemic respiratory failure secondary to acute on chronic congestive heart failure with preserved ejection fraction. seemsimproving not on oxygen daily weight ,i/o monitering switch to Lasix,will add sprinolactone . pancytopenia /Thrombocytopenia due to cirrhosis,alcohol use . h/h similar stable around 8.8 range ,platlets 43 no bleeding hypokalemia : repleted andresolved, moniter bmp alcohol withdrawals :still seems anxious intermitent. continue pheonobarbital. dvt prophylax: scd . ongoing hospitalization need: toxicmetabolic encephalopathy,alochol withdrawals -on phenobarbital, mental status is not optimal yet. Time Spent With Patient Time: Total time managing care of this patient today ____ minutes. Quality Stroke Does the patient have a stroke diagnosis?: No VTE Prior VTE?: No VTE Risk Level:: Medical - moderate - high VTE Device Contraindication: N/A - Device Ordered VTE Drug Contraindication: Treatment Not Indicated
[2023-09-05] MEDS: Thiamine HCL 250 MG in 0.9 % Sodium Chloride 100 ML 210 MG IV ×2 (13:09→22:04)
[2023-09-05] MEDS: Melatonin 3 MG TABLET 6 MG PO (22:07)
[2023-09-06 04:00] VITALS: BP 115/57; PULSE 80; RESP 18; TEMP 37.1; O2SAT 95
[2023-09-06] MEDS: ondansetron HCL 4 MG/2 ML VIAL IVPUSH (05:11)
[2023-09-06] MEDS: Omeprazole 40 MG CAPSULE.DR PO (05:14)
[2023-09-06 06:49] VITALS: BP 103/56; PULSE 72; RESP 16; TEMP 37.1; O2SAT 94
[2023-09-06] MEDS: Furosemide 20 MG TABLET PO ×2 (08:39→17:18)
[2023-09-06] MEDS: Folic Acid 1 MG TABLET PO (08:39)
[2023-09-06] MEDS: rifAXIMin 550 MG TABLET PO ×2 (08:39→19:48)
[2023-09-06] MEDS: Spironolactone 25 MG TABLET 12.5 MG PO ×2 (08:40→17:18)
[2023-09-06] MEDS: Magnesium Oxide 400 MG TABLET PO ×2 (08:40→15:24)
[2023-09-06] MEDS: Sucralfate 1 GM TABLET PO ×2 (08:40→15:24)
[2023-09-06] MEDS: Lactulose 20 GM/30 ML SOLUTION 40 GM PO ×2 (08:40→19:48)
[2023-09-06] MEDS: 0.9 % Sodium Chloride Flush 3 ML SYRINGE IVFLUSH ×3 (08:40→23:26)
[2023-09-06] MEDS: Thiamine HCL 250 MG in 0.9 % Sodium Chloride 100 ML 210 MG IV ×2 (11:24→21:56)
--- NOTE | 2023-09-06 13:06 | P.PNIM_ITS ---
Subjective Subjective Date of Service: 09/06/23 Interval History: tremulous denies any pain Review of Systems Review of Systems: Yes all other systems are reviewed and are negative Physical Exam 2 Vital Signs: Vital Signs: Last Vital Signs Temp 98.7 F 09/06/23 06:49 Pulse 72 09/06/23 06:49 Resp 16 09/06/23 06:49 BP 103/56 L 09/06/23 06:49 Pulse Ox 94 09/06/23 06:49 O2 Del Method Room Air 09/06/23 06:49 O2 Flow Rate 1 08/31/23 16:00 BMI result Body Mass Index 23.2 Gen: tremulous HEENT: sclera anicteric, moist mucus membranes Neck: supple Lungs: clear to auscultation bilaterally Heart: regular rate and rhythm, no murmurs Abd: soft, non-tender, non-distended Ext: no edema Skin: warm/well-perfused Neuro: alert and oriented to self and place, asterixis present Psych: appropriate affect Objective Data Active Medications Acetaminophen (Acetaminophen 325 Mg Tablet) 650 mg PO Q6H PRN PRN Reason: Pain, Mild (Pain Scale 1-3) Folic Acid (Folic Acid 1 Mg Tablet) 1 mg PO DAILY [facility] Last Admin: 09/06/23 08:39 Dose: 1 mg Documented By: WES Furosemide (Furosemide 20 Mg Tablet) 20 mg PO BID@0900,1800 [facility]; Protocol Last Admin: 09/06/23 08:39 Dose: 20 mg Documented By: WES Thiamine HCl 250 mg/ Sodium (Chloride) 102.5 mls @ 210 mls/hr IV Q12H [facility] Last Infusion: 09/06/23 12:01 Dose: Infused Documented By: WES Lactulose (Lactulose 20 Gm/30 Ml Solution) 40 gm PO TID [facility] Last Admin: 09/06/23 12:34 Dose: Not Given Documented By: WES Non-Admin Reason: 4 loose stools Magnesium Oxide (Magnesium Oxide 400 Mg Tablet) 400 mg PO BIDPC [facility] Last Admin: 09/06/23 08:40 Dose: 400 mg Documented By: WES Melatonin (Melatonin 3 Mg Tablet) 6 mg PO BEDTIME PRN PRN Reason: Insomnia Last Admin: 09/05/23 22:07 Dose: 6 mg Documented By: RASHEEDA Omeprazole (Omeprazole 40 Mg Donnell.) 40 mg PO DAILY@0630 [facility] Last Admin: 09/06/23 05:14 Dose: 40 mg Documented By: RASHEEDA Ondansetron HCl (Ondansetron Hcl 4 Mg/2 Ml Vial) 4 mg IVPUSH Q8H PRN PRN Reason: Nausea and Vomiting Last Admin: 09/06/23 05:11 Dose: 4 mg Documented By: RASHEEDA Pharmacy Consult (Consult Rx Etoh Phenob Im/Po) 1 each MISCELLANE ONCE PRN PRN Reason: Consult order Rifaximin (Rifaximin 550 Mg Tablet) 550 mg PO BID [facility] Last Admin: 09/06/23 08:39 Dose: 550 mg Documented By: WES Sodium Chloride (0.9 % Sodium Chloride Flush 3 Ml Syringe) [facility] Last Admin: 09/06/23 08:40 Dose: 3 ml Documented By: WES Spironolactone (Spironolactone 25 Mg Tablet) 12.5 mg PO BID@0900,1800 [facility]; Protocol Last Admin: 09/06/23 08:40 Dose: 12.5 mg Documented By: WES Sucralfate (Sucralfate 1 Gm Tablet) 1 gm PO BIDAC [facility] Last Admin: 09/06/23 08:40 Dose: 1 gm Documented By: WES Labs 09/04/23 09:10 09/04/23 09:10 Assessment and Plan (1) Hypokalemia: Status: Acute (2) Pancytopenia: Status: Acute (3) Encephalopathy: Status: Acute Assessment and Plan: d9 53yo M with AUD, EtOH cirrhosis, HFpEF found down, admitted to ICU briefly for anemia due to variceal bleed, stepped down to hospitalist service 08/30 also treated for EtOH withdrawal acute blood loss anemia due to GI bleeding from esophgeal varices - transfused 4u PRBCs + 1u plts - EGD 08/30/23 [Dr Rose]: Esophagus: GE junction at 40 cm, diaphragm hiatus at 40 cm, x 2 variceal cords grade I, with slough noted from prior banding. There was a red spot noted on one area which is suspected to have been a recent bleeding spot, initially a clip was applied but this fell off due to the scar tissue, there was oozing, so then a banding device was used to place x 2 bands, and then hemospray was applied. Stomach: Mosaic pattern consistent with portal hypertensive gastropathy. Grade 2 flap valve on retroflexed examination of the cardia. No gastric varices - H+H stable - continue PPI + sucralfate - f/u with GI for repeat EGD in 4 wk hepatic encephalopathy - add rifaximin to lactulose acute hypoxic resp failure due to acute-chronic HFpEF - weaned off O2, continue PO furosemide + spironolactone pancytopenia - due to cirrhosis, counts stable hypoK - repleted AUD with acute withdrawal - thiamine, folate - completed phenobarbital taper - declined recovery support VTE ppx - SCDs dispo - STR recommended Time Spent With Patient Time: Total time managing care of this patient today _40___ minutes. Quality Stroke Does the patient have a stroke diagnosis?: No VTE Prior VTE?: No VTE Risk Level:: Medical - moderate - high VTE Device Contraindication: N/A - Device Ordered VTE Drug Contraindication: Treatment Not Indicated
[2023-09-06 16:00] VITALS: BP 108/60; PULSE 88; RESP 18; TEMP 36.7; O2SAT 96
[2023-09-06 23:34] VITALS: BP 100/56; PULSE 89; RESP 18; TEMP 36.8; O2SAT 94
[2023-09-07 05:57] LABS: Hematocrit 26.4 % (42.0-52.0); Hemoglobin 8.7 g/dl (14.0-18.0); Red Blood Count 2.64 X10*6/uL (4.60-5.80); Red Cell Distribution Width 19.8 % (11.0-16.0); White Blood Count 4.3 X10*3/uL (4.8-10.8)
[2023-09-07 05:58] LABS: Platelet Count 61 X10*3/uL (160-400)
[2023-09-07 06:00] VITALS: BMI 23.4
[2023-09-07 06:08] LABS: INTERNATIONAL NORM RATIO 1.9 (0.9-1.1)
[2023-09-07 06:15] LABS: Alanine Aminotransferase 7 U/L (0-40); Albumin Level 2.6 g/dL (3.5-5.0); Alkaline Phosphatase 118 U/L (39-117); Anion Gap 11 (12-20); Aspartate Amino Transferase 25 U/L (5-37); Bilirubin Total 1.7 mg/dL (0.0-1.0); Blood Urea Nitrogen 10 mg/dL (9-16); Calcium 9.3 mg/dL (8.4-10.2); Carbon Dioxide 21 mmol/L (22-29); Chloride 107 mmol/L (96-108); Creatinine Clr Calc Pharmacy 94.2; Estimated Glomerular Filt Rate > 60; Glucose Random 94 mg/dL (60-115); Magnesium 1.6 mg/dL (1.6-2.6); Potassium 4.2 mmol/L (3.3-5.1); Sodium 135 mmol/L (135-145); Total Protein 6.9 g/dL (6.5-8.0)
[2023-09-07] MEDS: Omeprazole 40 MG CAPSULE.DR PO (06:30)
[2023-09-07 06:55] VITALS: BP 120/60; PULSE 72; RESP 18; TEMP 36.1; O2SAT 95
[2023-09-07] MEDS: Magnesium Oxide 400 MG TABLET PO (08:46)
[2023-09-07] MEDS: Folic Acid 1 MG TABLET PO (08:46)
[2023-09-07] MEDS: Sucralfate 1 GM TABLET PO (08:46)
[2023-09-07] MEDS: Spironolactone 25 MG TABLET 12.5 MG PO (08:46)
[2023-09-07] MEDS: Furosemide 20 MG TABLET PO (08:47)
[2023-09-07] MEDS: rifAXIMin 550 MG TABLET PO (08:47)
[2023-09-07] MEDS: Lactulose 20 GM/30 ML SOLUTION 40 GM PO ×2 (08:47→14:21)
[2023-09-07] MEDS: 0.9 % Sodium Chloride Flush 3 ML SYRINGE IVFLUSH (08:47)
[2023-09-07] MEDS: Thiamine HCL 100 MG TABLET PO (10:30)
[2023-09-07 10:32] VITALS: BP 120/60; PULSE 72; O2SAT 95
--- NOTE | 2023-09-07 12:48 | P.DS_ITS ---
DS: Providers Provider Date of Service: 09/07/23 Date of admission: 08/29/23 04:44 Date of discharge: 09/07/23 Primary care physician: Unknown Physician Consults: 08/29/23 04:46 Consult to Gastroenterology Routine Consulting Provider: Frannie Rose Reason for consultation: GI bleed 08/29/23 05:21 Addiction Medicine Routine Consulting Provider: Addiction Covering Reason for consultation: alcohol use disorder 08/29/23 09:32 Consult to Infectious Diseases [place]ine [place] [facility] [place] Reason for consultation: Diarrhae -recently treated for cdiff Has provider been notified: No 08/29/23 09:48 Consult to Critical Care Routine Consulting Provider: Mary Benavides Reason for consultation: Levels of care Has provider been notified: No DS: Diagnosis Discharge Diagnosis (1) Hypokalemia: Status: Acute (2) Pancytopenia: Status: Acute (3) Alcohol use disorder: Status: Acute (4) Alcohol withdrawal syndrome: Status: Acute (5) Hepatic encephalopathy: Status: Acute (6) Acute blood loss anemia: Status: Acute (7) Esophageal varices: Status: Acute (8) Cirrhosis: Status: Acute DS: Summary Hospital Course Hospital Course: From the history and physical by the admitting hospitalist, Christine Hogan, 08/29/23: This is a 53-year-old male with pertinent history of alcohol use disorder with alcoholic cirrhosis, congestive heart failure with preserved ejection fraction who was brought to the emergency department after he was found down. EMS states that he was sleeping on the side of the road and was intoxicated. Patient stated earlier that he was looking to the trash and fell. Admitted drinking alcohol. Patient is only oriented to self and above unable to provide full history. History obtained from ER provider and chart review. Unable to obtain review of systems. Of note, patient was recently admitted and discharged on 08/16 with sepsis due to C diff colitis. He was discharged on furosemide for decompensated diastolic heart failure. Had a recent EGD on 08/14 with varices. In the emergency department, patient's hemoglobin was found to be low and patient requiring supplemental oxygen 53yo homeless M with AUD, EtOH cirrhosis, and HFpEF who was found down and admitted for anemia due to variceal bleed, briefly stepped up to the ICU 08/29- 08/30/23 for hypotension but quickly returned to the hospitalist service 08/30/23. Hospital course by problem: acute blood loss anemia due to GI bleeding from esophageal varices - He was transfused a total of 4u PRBCs + 1u plts. H+H stable afterwards. - EGD 08/30/[address] Rose: Esophagus: GE junction at 40 cm, diaphragm hiatus at 40 cm, x 2 variceal cords grade I, with slough noted from prior banding. There was a red spot noted on one area which is suspected to have been a recent bleeding spot, initially a clip was applied but this fell off due to the scar tissue, there was oozing, so then a banding device was used to place x 2 bands, and then hemospray was applied. Stomach: Mosaic pattern consistent with portal hypertensive gastropathy. Grade 2 flap valve on retroflexed examination of the cardia. No gastric varices - Continue PPI + sucralfate. - F/u with GI for repeat EGD in 4 wk. hepatic encephalopathy - Started on lactulose and added rifaximin with resolution. acute hypoxic resp failure due to acute-chronic HFpEF - Initially diuresed with IV furosemide, then weaned off O2; continued on PO furosemide + spironolactone. pancytopenia - Due to cirrhosis; counts stable. hypoK - Repleted. hypoMg - Repleted; oral maintenance started. AUD with acute withdrawal - Started on thiamine and folate. - Completed phenobarbital taper. - Declined recovery support from Addiction Medicine dispo - STR recommended and patient was discharged to [facility]. Time Spent with Patient Time attestation: Total time managing care of this patient today ___45_ minutes. Discharge coordination time: Greater than 30 minutes Quality: Safe Use of Opioids Does Pt have an Active Cancer Diagnosis on the Problem List?: No Quality: Stroke Does the patient have a stroke diagnosis?: No Physical Exam Vital Signs: Vital Signs: Last Vital Signs Temp 97 F 09/07/23 06:55 Pulse 72 09/07/23 10:32 Resp 18 09/07/23 06:55 BP 120/60 09/07/23 10:32 Pulse Ox 95 09/07/23 10:32 O2 Del Method Room Air 09/07/23 06:55 O2 Flow Rate 1 08/31/23 16:00 BMI result Body Mass Index 23.4 Gen: in no acute distress HEENT: sclera anicteric, moist mucus membranes Neck: supple Lungs: clear to auscultation bilaterally Heart: regular rate and rhythm, no murmurs Abd: soft, non-tender, non-distended Ext: no edema Skin: warm/well-perfused Neuro: alert and oriented x3, no focal findings Psych: appropriate affect DS: Data Data Completed and Pending Completed studies during hospitalization [Text1]: Laboratory Results WBC 4.3 X10*3/uL (4.8-10.8) L 09/07/23 05:06 RBC 2.64 X10*6/uL (4.60-5.80) L 09/07/23 05:06 Hgb 8.7 g/dl (14.0-18.0) L 09/07/23 05:06 Hct 26.4 % (42.0-52.0) L 09/07/23 05:06 MCV 100.0 fL (80.0-98.0) H 09/07/23 05:06 MCH 33.0 pg (27.0-33.0) 09/07/23 05:06 MCHC 33.0 g/dl (31.0-36.0) 09/07/23 05:06 RDW 19.8 % (11.0-16.0) H 09/07/23 05:06 Plt Count 61 X10*3/uL (160-400) L D 09/07/23 05:06 MPV 12.0 fL (9.4-12.4) 09/07/23 05:06 Immature Gran % (Auto) 0.3 % (0.0-0.4) 08/30/23 15:31 Neut % (Auto) 54.7 % (45-73) 08/30/23 15:31 Lymph % (Auto) 24.5 % (20-40) 08/30/23 15:31 [place] % (Auto) 15.0 % (2-11) H 08/30/23 15:31 Eos % (Auto) 4.9 % (0-4) H 08/30/23 15:31 Baso % (Auto) 0.6 % (0-2) 08/30/23 15:31 Lymph # (Auto) 0.8 X10*3/uL (1.2-4.9) L 08/30/23 15:31 [place] # (Auto) 0.5 X10*3/uL (0.1-1.2) 08/30/23 15:31 Eos # (Auto) 0.2 X10*3/uL (0.0-0.4) 08/30/23 15:31 Baso # (Auto) 0.0 X10*3/uL (0.0-0.2) 08/30/23 15:31 Abs Immat Gran (auto) 0.01 X10*3/uL (0.00-0.03) 08/30/23 15:31 Absolute Neuts (auto) 1.8 x10*3/uL (2.0-8.3) L 08/30/23 15:31 Absolute Nucleated RBC 0.000 X10*3/uL (0.0-0.012) 09/07/23 05:06 Nucleated RBC % (auto) 0.0 /100WBC (0.0-0.2) 09/07/23 05:06 Hold Purple Top SEE NOTE 09/02/23 08:53 PT 23.0 SEC (11.1-13.3) H 09/07/23 05:06 INR 1.9 (0.9-1.1) H 09/07/23 05:06 APTT 39.4 SEC (26.0-36.4) H 08/29/23 00:45 Sodium 135 mmol/L (135-145) 09/07/23 05:06 Potassium 4.2 mmol/L (3.3-5.1) 09/07/23 05:06 Chloride 107 mmol/L (96-108) 09/07/23 05:06 Carbon Dioxide 21 mmol/L (22-29) L 09/07/23 05:06 Anion Gap 11 (12-20) L 09/07/23 05:06 BUN 10 mg/dL (9-16) 09/07/23 05:06 Creatinine 0.75 mg/dL (0.5-1.4) 09/07/23 05:06 Estim Creat Clear Calc 94.2 09/07/23 05:06 Estimated GFR > 60 09/07/23 05:06 Random Glucose 94 mg/dL (60-115) 09/07/23 05:06 Calcium 9.3 mg/dL (8.4-10.2) 09/07/23 05:06 Phosphorus 5.8 mg/dL (2.7-4.5) H 08/29/23 13:43 Magnesium 1.6 mg/dL (1.6-2.6) 09/07/23 05:06 Total Bilirubin 1.7 mg/dL (0.0-1.0) H 09/07/23 05:06 Direct Bilirubin 1.1 mg/dL (0.0-0.5) H 08/29/23 00:08 AST 25 U/L (5-37) 09/07/23 05:06 ALT 7 U/L (0-40) 09/07/23 05:06 Alkaline Phosphatase 118 U/L (39-117) H 09/07/23 05:06 Ammonia 107 umol/L (13-55) H 08/29/23 11:38 Total Creatine Kinase 88 U/L (38-174) 08/29/23 00:08 Troponin I High Sens 10.9 ng/L (<3.5-35.0) 08/29/23 00:08 B-Natriuretic Peptide 109 pg/mL (<100) H 08/29/23 00:08 Total Protein 6.9 g/dL (6.5-8.0) 09/07/23 05:06 Albumin 2.6 g/dL (3.5-5.0) L 09/07/23 05:06 Lipase 17 U/L (8-78) 08/29/23 00:08 Urine Color Yellow 08/29/23 17:43 Urine Appearance Clear 08/29/23 17:43 Urine pH 7.5 (5.0-9.0) 08/29/23 17:43 Ur Specific [place] 1.025 (1.005-1.025) 08/29/23 17:43 Urine Protein Negative mg/dL (Neg-Trace) 08/29/23 17:43 Urine Glucose (UA) Negative mg/dL (Negative) 08/29/23 17:43 Urine Ketones Trace mg/dL (Negative) 08/29/23 17:43 Urine Blood Negative (Negative) 08/29/23 17:43 Urine Nitrite Negative (Negative) 08/29/23 17:43 Ur Leukocyte Esterase Trace (Negative) H 08/29/23 17:43 Urine RBC 3-5 /HPF (0-2) H 08/29/23 17:43 Urine WBC 0-5 /HPF (0-5) 08/29/23 17:43 Ur Squamous Epith Cells 0-2 /HPF (0-2) 08/29/23 17:43 Urine Bacteria None Seen (None Seen) 08/29/23 17:43 Hyaline Casts 0-2 /LPF (0-2) 08/29/23 17:43 Stool Occult Blood POSITIVE (NEGATIVE) 08/29/23 21:05 Urine Opiates Screen Not Detected (Not Detect) 08/29/23 05:14 Urine Fentanyl Screen Not Detected (Not Detect) 08/29/23 05:14 Ur Barbiturates Screen POSITIVE (Not Detect) H 08/29/23 05:14 Ur Phencyclidine Scrn Not Detected (Not Detect) 08/29/23 05:14 Ur Amphetamines Screen Not Detected (Not Detect) 08/29/23 05:14 U Benzodiazepines Scrn POSITIVE (Not Detect) H 08/29/23 05:14 Urine Cocaine Screen Not Detected (Not Detect) 08/29/23 05:14 U Marijuana (THC) Screen Not Detected (Not Detect) 08/29/23 05:14 Ethyl Alcohol 121 mg/dL 08/29/23 00:08 C. difficile Tox B Gene NEGATIVE (Negative) 08/29/23 21:05 Blood Type B Positive 08/29/23 00:45 Antibody Screen NEGATIVE 08/29/23 00:45 ELLIOT, Polyspecific NEGATIVE 08/29/23 00:45 Positive ELLIOT Work-up TNP 08/29/23 00:45 Crossmatch (AHG) See Detail 08/29/23 00:45 Impressions Abdomen/Pelvis CT 08/29/23 03:35 IMPRESSION: 1. Limited evaluation throughout the abdomen/pelvis due to motion artifact. 2. Slightly nodular hepatic contour suggesting cirrhosis. Distal esophageal varices. Trace ascites. 3. Somewhat thick-walled appearance of the ascending colon, suboptimally assessed due to artifact. This could be due to portal colopathy versus infectious or inflammatory colitis in the proper clinical setting. 4. Small pleural effusions. Regions of adjacent bibasilar pulmonary opacity may represent atelectasis or consolidation. 5. Anasarca. Cervical Spine CT 08/29/23 03:35 IMPRESSION: HEAD: Suboptimal assessment due to motion artifact. No acute findings identified. CERVICAL SPINE: Significantly limited evaluation due to motion artifact, rendering the study essentially nondiagnostic for evaluation of fractures. If clinically warranted, repeat examination may be attempted when patient is able to remain still. Chest X-Ray 08/29/23 03:35 IMPRESSION: Suboptimal assessment due to patient rotation. Suspect small pleural effusions with adjacent mild bibasilar opacities which may represent atelectasis or consolidation. Prominent central vasculature suggesting a degree of congestion. Head CT 08/29/23 03:35 IMPRESSION: HEAD: Suboptimal assessment due to motion artifact. No acute findings identified. CERVICAL SPINE: Significantly limited evaluation due to motion artifact, rendering the study essentially nondiagnostic for evaluation of fractures. If clinically warranted, repeat examination may be attempted when patient is able to remain still. Discharge Plan Discharge Anticipated Discharge Date/Time: 09/07/23 12:36 Patient Disposition: er SNF Discharge Diagnosis: acute blood loss anemia due to GI bleeding from esophageal varices hepatic encephalopathy acute hypoxic resp failure due to acute-chronic HFpEF pancytopenia alcohol use disorder alcohol withdrawal Referrals: [facility] [Outside] - 1 Week (TRANSFER FOR SHORT TERM REHAB) Frannie Rose MD [Physician] - 2 Weeks Physician,Cristian J [Primary Care Provider] - 1 Week Discharge Medications: New sucralfate 1 gram Tablet 1 g PO BIDAC Qty: 60 0RF omeprazole 40 mg Capsule,Delayed Release(Dr/Ec) 40 mg PO DAILY@0630 Qty: 30 0RF spironolactone 25 mg Tablet 12.5 mg PO BID@0900,1800 Qty: 30 0RF Protocol: Hold for SBP< HOLD for SBP < : 90 magnesium oxide 400 mg (241.3 mg magnesium) Tablet 400 mg PO BIDPC Qty: 60 0RF folic acid 1 mg Tablet 1 mg PO DAILY Qty: 30 0RF furosemide 20 mg Tablet 20 mg PO BID@0900,1800 Qty: 60 0RF Protocol: Hold for SBP< HOLD for SBP < : 90 Xifaxan 550 mg Tablet 550 mg PO BID Qty: 60 0RF thiamine mononitrate (vit B1) 100 mg Tablet 100 mg PO DAILY Qty: 30 0RF lactulose 20 gram/30 mL Solution 40 g PO TID Qty: 2700 0RF Discharge Orders: Discharge Order (Routine); Ordered 09/07/23 Ordered By: Tramaine Storey Diet: Low salt diet Activity on Discharge: As tolerated Stand Alone Forms: Patient Portal Discharge page Care Plan Goals: sobriety liver health Health Concerns: acute blood loss anemia due to GI bleeding from esophageal varices hepatic encephalopathy acute hypoxic resp failure due to acute-chronic HFpEF pancytopenia alcohol use disorder alcohol withdrawal Plan of Treatment: transfer to [facility]; anticipate length of stay less than 30 days take omeprazole 40 mg daily and sucralfate 1 mg twice daily take lactulose 30 mL 3x a day [titrate to 3-4 soft BMs/day] and rifaximin twice daily take folic acid 1 mg daily and thiamine 100 mg daily and magnesium oxide 400 mg twice daily take furosemide 20 mg twice daily and spironolactone 12.5 mg twice daily Low-sodium diet: less than 2000 mg of sodium daily. Weigh yourself daily and call your doctor if your weight goes up by more than 3 lb/day or 5 lb/week. avoid alcohol completely establish primary care as soon as possible follow up [place] Dr Rose [place] [place] 4 [place] Assessment: See Discharge Summary.
--- NOTE | 2023-09-07 12:51 | MHC.CM.PN ---
Addendum entered by Mojgan Scales 09/07/23 15:33: APPROVED ADMISSION PER [facility] AND [facility] AWARE. Original Note: DP: PT HAS BEEN MEDICALLY CLEARED FOR DC TO STR . PT IS AGREEABLE AND [facility] HAS OFFERED A BED PENDING [facility] SCREENING APPROVAL. RN AWARE. HCP NOTIFIED PER PT REQUEST AND BLS TRANSPORT BOOKED FOR 4 PM VIA RG
[2023-09-07 16:00] VITALS: BP 116/58; PULSE 89; RESP 18; TEMP 36.8; O2SAT 97
== END 2023-09-07 16:23 | disposition skilled nursing facility (03) | DRG 280 ==
LOC: HO.ED 08-29 04:41 → HO.EDOVER 08-29 04:48 → HO.ICU 08-29 11:15 → HO.S3 08-30 14:39
PROVIDERS: Internal Medicine; Internal Medicine Critical Care Medicine; Internal Medicine Gastroenterology; Physician Assistant Medical; Admitting Provider Student in an Organized Health Care Education/Training Program; Emergency Provider Emergency Medicine; Visit Provider Family Medicine
PROC: 0DJ08ZZ Inspection of Upper Intestinal Tract, Via Natural or Artificial Opening Endoscopic (ICD-10-PCS; CPT 43235; principal; 2023-08-30 16:00)
DX: K70.30 Alcoholic cirrhosis of liver without ascites (principal); G92.8 Other toxic encephalopathy; I50.33 Acute on chronic diastolic (congestive) heart failure; I85.11 Secondary esophageal varices with bleeding; D61.818 Other pancytopenia; E87.6 Hypokalemia; K76.82 Hepatic encephalopathy; K76.6 Portal hypertension; F10.129 Alcohol abuse with intoxication, unspecified; K31.89 Other diseases of stomach and duodenum; E83.42 Hypomagnesemia; F10.139 Alcohol abuse with withdrawal, unspecified; I11.0 Hypertensive heart disease with heart failure; Z59.02 Unsheltered homelessness; Y90.6 Blood alcohol level of 120-199 mg/100 ml; Z87.891 Personal history of nicotine dependence; Z79.899 Other long term (current) drug therapy
CPT/HCPCS: 36415; 70450; 71045; 72125; 74177; 80048; 80053; 80076; 80307; 81001; 82140; 82272; 82550; 83690; 83735; 83880; 84100; 84132; 84484; 85014; 85018; 85025; 85027; 85610; 85730; 86850; 86880; 86900; 86901; 86920; 86922; 87493; 92610; 93005; 97116; 97162; 99285; C1758; J0171; J0613; J1940; J2250; J2354; J2405; J2560; J3010; J3411; J3430; J3475; P9016; P9047; P9073; Q9967

== ENCOUNTER → 2023-08-29 04:44 | Outpatient (BNV) | payer OTHER, SELFPAY | PROVIDERS: Admitting Provider Student in an Organized Health Care Education/Training Program; Emergency Provider Emergency Medicine; Visit Provider Nurse Practitioner Psychiatric/Mental Health | DX: F10.90 Alcohol use, unspecified, uncomplicated (principal) | CPT/HCPCS: 99499 ==

== ENCOUNTER → 2023-08-29 04:44 | Outpatient (BNV) | payer MEDICAID, SELFPAY | PROVIDERS: Admitting Provider Student in an Organized Health Care Education/Training Program; Emergency Provider Emergency Medicine; Visit Provider Student in an Organized Health Care Education/Training Program | DX: E87.6 Hypokalemia (principal); D61.818 Other pancytopenia; F10.939 Alcohol use, unspecified with withdrawal, unspecified; K76.82 Hepatic encephalopathy; D62 Acute posthemorrhagic anemia; I85.00 Esophageal varices without bleeding; K74.60 Unspecified cirrhosis of liver | CPT/HCPCS: 99222; 99232; 99239 ==

== ENCOUNTER → 2023-08-29 04:44 | Outpatient (BNV) | payer MEDICAID, SELFPAY | PROVIDERS: Admitting Provider Student in an Organized Health Care Education/Training Program; Emergency Provider Emergency Medicine; Visit Provider Internal Medicine Critical Care Medicine | DX: K74.60 Unspecified cirrhosis of liver (principal); D61.818 Other pancytopenia; F10.920 Alcohol use, unspecified with intoxication, uncomplicated | CPT/HCPCS: 99291 ==

== ENCOUNTER → 2023-08-29 04:44 | Outpatient (BNV) | payer MEDICAID, SELFPAY | PROVIDERS: Admitting Provider Student in an Organized Health Care Education/Training Program; Emergency Provider Emergency Medicine; Visit Provider Internal Medicine Gastroenterology | DX: D64.9 Anemia, unspecified (principal); I85.01 Esophageal varices with bleeding | CPT/HCPCS: 43244; 99222 ==

== ENCOUNTER → 2023-08-29 04:44 | Outpatient (BNV) | payer MEDICAID, SELFPAY | PROVIDERS: Admitting Provider Student in an Organized Health Care Education/Training Program; Emergency Provider Emergency Medicine; Visit Provider Internal Medicine | DX: G93.40 Encephalopathy, unspecified (principal); F10.920 Alcohol use, unspecified with intoxication, uncomplicated | CPT/HCPCS: 99222 ==

== ENCOUNTER 2024-01-16 23:14 | Emergency (ER) | payer MEDICAID, SELFPAY ==
[2024-01-16 23:22] VITALS: BP 140/90; BP 91/50; PULSE 71; PULSE 80; RESP 16; TEMP 36.4; O2SAT 96; O2SAT 97; BMI 20.6
--- NOTE | 2024-01-16 23:48 | PC.NURSE ---
c-collar removed by Dr. Bae. pt axox4 ambulatory with steady gait. pt states if discharged he is without housing but okay with walking to the area which he stays; does not own a car and does not wish to call anyone for a ride.
--- NOTE | 2024-01-16 23:50 | ED.FALL ---
HPI - Fall General Chief Complaint: Fall Stated Complaint: etoh Time Seen by Provider: 01/16/24 23:39 Source: patient and EMS Mode of arrival: EMS Limitations: no limitations History of Present Illness HPI Narrative: Patient alcoholic had few drinks earlier EMS saw him falling landing on his right side without hitting his head no loss of consciousness patient denies any pain intoxicated when arrived Related Data Previous Rx's Medication Instructions Recorded folic acid 1 mg tablet 1 mg PO DAILY #30 tabs 09/07/23 furosemide 20 mg tablet 20 mg PO BID@0900,1800 #60 tabs 09/07/23 lactulose 20 gram/30 mL oral 40 g (60 mL) PO TID #2,700 mL 09/07/23 solution magnesium oxide 400 mg (241.3 mg 400 mg PO BIDPC #60 tabs 09/07/23 magnesium) tablet omeprazole 40 mg capsule,delayed 40 mg PO DAILY@0630 #30 caps 09/07/23 release rifaximin 550 mg tablet (Xifaxan) 550 mg PO BID #60 tabs 09/07/23 spironolactone 25 mg tablet 12.5 mg PO BID@0900,1800 #30 tabs 09/07/23 sucralfate 1 gram tablet 1 g PO BIDAC #60 tabs 09/07/23 thiamine mononitrate (vit B1) 100 100 mg PO DAILY #30 tabs 09/07/23 mg tablet Allergies Allergy/AdvReac Type Severity Reaction Status Date / Time No Known Allergies Allergy Verified 08/25/23 09:13 [No Known Allergies*] Review of Systems Review of Systems: Yes all other systems are reviewed and are negative FOR[facility]LY [facility] Past Medical History Medical History Alcohol withdrawal syndrome Cirrhosis Malnutrition CHF (congestive heart failure) Anemia Aspiration pneumonia Pneumonia Hypomagnesemia Thrombocytopenia Alcoholic liver disease Acute on chronic anemia CHF (congestive heart failure) Anemia Alcohol abuse Surgical History No history of previous surgery Social History Social History Household Members: Other Household Members Other:: pt homeless Housing: Homeless Housing Other:: homeless Do you presently have visiting nurse or other home services: No Alcohol intake: current Alcohol intake frequency: 0-2 drinks per day Alcohol type: beer Comment: 1:1 sitter. Patient Tobacco Use Status: Former Tobacco user Quit Date: 12 years ago Tobacco use type: Cigarette Second Hand Smoke Exposure: No Advance Directives: Yes Advance Directives on File: Yes Advance Directives Date on File: 07/13/23 service: No Physical Exam Vital Signs: Vital Signs: Last Vital Signs Temp 97.6 F 01/16/24 23:22 Pulse 71 01/16/24 23:22 Resp 16 01/16/24 23:22 BP 91/50 L 01/16/24 23:22 Pulse Ox 97 01/16/24 23:22 O2 Del Method Room Air 01/16/24 23:22 BMI result Body Mass Index 20.6 Appearance: Alert. Oriented X3. No acute distress. Intoxicated Eyes: PERRLA, No Nystagmus ENT: Pharynx normal. Oral Mucosa moist atraumatic normocephalic Neck: Normal inspection. Neck supple. No midline tenderness CVS: Normal heart rate and rhythm. Pulses normal. Respiratory: No respiratory distress. Equal air entry bilateral, no wheezing/rales/rhonchi Abdomen: Soft and nontender. Bowel sounds are present, no mass palpable, no CVA tenderness Skin: Skin warm and dry. Normal skin color. Normal skin turgor. Extremities: No lower extremity edema. No calf tenderness Neuro: Oriented X 3. No motor deficit. No sensory deficit.No cerebellar signs , cranial nerves II-XII intact steady gait Medical Decision Making Medical Decision Making MDM Narrative: Patient colleagues minor fall in the ER no signs of injuries does not want to stay in the ER to get sober but able to ambulate and steady gait will discharge Discharge Plan Discharge Clinical Impression: Alcohol abuse Patient Disposition: Home, Self-Care Instructions: Abuse of Alcohol (ED) Prescriptions: No Action sucralfate 1 gram Tablet 1 g PO BIDAC Qty: 60 0RF omeprazole 40 mg Capsule,Delayed Release(Dr/Ec) 40 mg PO DAILY@0630 Qty: 30 0RF spironolactone 25 mg Tablet 12.5 mg PO BID@0900,1800 Qty: 30 0RF Protocol: Hold for SBP< HOLD for SBP < : 90 magnesium oxide 400 mg (241.3 mg magnesium) Tablet 400 mg PO BIDPC Qty: 60 0RF folic acid 1 mg Tablet 1 mg PO DAILY Qty: 30 0RF furosemide 20 mg Tablet 20 mg PO BID@0900,1800 Qty: 60 0RF Protocol: Hold for SBP< HOLD for SBP < : 90 Xifaxan 550 mg Tablet 550 mg PO BID Qty: 60 0RF thiamine mononitrate (vit B1) 100 mg Tablet 100 mg PO DAILY Qty: 30 0RF lactulose 20 gram/30 mL Solution 40 g PO TID Qty: 2700 0RF Interventions: ED Discharge Assessment Last Done: 01/17/24 00:03 Discharge Date/Time: 01/17/24 00:03
== END 2024-01-17 00:03 | disposition home or self-care (01) ==
PROVIDERS: Emergency Provider Internal Medicine
DX: F10.10 Alcohol abuse, uncomplicated (principal); Z87.891 Personal history of nicotine dependence; Y90.9 Presence of alcohol in blood, level not specified
CPT/HCPCS: 99282

== ENCOUNTER 2024-01-17 10:44 | Emergency (ER) | payer MEDICAID, SELFPAY ==
--- NOTE | ~2024-01-17 | XR_ITS ---
STUDY: Left shoulder and left elbow INDICATION: Pain after fall COMPARISON: 09/16/2021 left elbow TECHNIQUE: 3 view left shoulder, 3 view left elbow FINDINGS: Left shoulder: Diffuse demineralization. Acromioclavicular joint space narrowing. Glenohumeral joint appears maintained. Calcification lateral aspect of the left humeral head seen on previous chest radiograph. No fracture or dislocation. Visualized ribs and lung are unremarkable. Left elbow alignment and articulations are maintained. Minor olecranon spurring. No fracture or dislocation. Rounded hyperdensity again noted in the antecubital fossa. XR/XR elbow LT 2V IMPRESSION: Demineralization. Mild degenerative changes. No acute bony pathology left shoulder and left elbow.
--- NOTE | ~2024-01-17 | CT_ITS ---
EXAMINATION: CT HEAD WITHOUT CONTRAST CT CERVICAL SPINE WITHOUT CONTRAST CLINICAL INFORMATION: Fall with head strike. COMPARISON: CT imaging from 08/29/2023. TECHNIQUE: Contiguous axial imaging was performed from the skullbase to vertex without intravenous administration of contrast. Multidetector helical imaging was performed through the cervical spine. This CT examination was performed using dose optimization techniques as appropriate, variously including the following: *Automated exposure control *Adjustment of mA and/or kV according to patient size (this includes techniques or standardized protocols for targeted exams where dose is matched to indication/reason for exam; i.e. extremities or head) *Use of iterative reconstruction technique DLP: 605, 233 mGy-cm. FINDINGS: HEAD: There is no evidence of acute intracranial hemorrhage or territorial infarction. No abnormal mass effect or midline shift is seen. Weaver to white matter differentiation is well preserved. No extra-axial fluid collections are identified. There is mild to moderate generalized brain parenchymal volume loss for patient age. Commensurate ex vacuo dilatation of the ventricles also noted. The osseous structures and soft tissues are normal. The mastoid air cells and visualized portions of the paranasal sinuses are well aerated. CERVICAL SPINE: No acute fracture or significant subluxation is identified in the cervical spine. The disc spaces are maintained. Mild multilevel endplate spurring noted. Small central disc protrusion visible at the C3-C4 level. The atlantoaxial articulation is normally maintained. The paraspinal soft tissues are normal. The lung apices are clear. CT/CT cervical spine wo IV con IMPRESSION: 1. No acute intracranial pathology. 2. No evidence of acute cervical spine traumatic injury.
--- NOTE | ~2024-01-17 | CT_ITS ---
EXAMINATION: CT HEAD WITHOUT CONTRAST CT CERVICAL SPINE WITHOUT CONTRAST CLINICAL INFORMATION: Fall with head strike. COMPARISON: CT imaging from 08/29/2023. TECHNIQUE: Contiguous axial imaging was performed from the skullbase to vertex without intravenous administration of contrast. Multidetector helical imaging was performed through the cervical spine. This CT examination was performed using dose optimization techniques as appropriate, variously including the following: *Automated exposure control *Adjustment of mA and/or kV according to patient size (this includes techniques or standardized protocols for targeted exams where dose is matched to indication/reason for exam; i.e. extremities or head) *Use of iterative reconstruction technique DLP: 605, 233 mGy-cm. FINDINGS: HEAD: There is no evidence of acute intracranial hemorrhage or territorial infarction. No abnormal mass effect or midline shift is seen. Weaver to white matter differentiation is well preserved. No extra-axial fluid collections are identified. There is mild to moderate generalized brain parenchymal volume loss for patient age. Commensurate ex vacuo dilatation of the ventricles also noted. The osseous structures and soft tissues are normal. The mastoid air cells and visualized portions of the paranasal sinuses are well aerated. CERVICAL SPINE: No acute fracture or significant subluxation is identified in the cervical spine. The disc spaces are maintained. Mild multilevel endplate spurring noted. Small central disc protrusion visible at the C3-C4 level. The atlantoaxial articulation is normally maintained. The paraspinal soft tissues are normal. The lung apices are clear. CT/CT head/brain wo IV con IMPRESSION: 1. No acute intracranial pathology. 2. No evidence of acute cervical spine traumatic injury.
--- NOTE | ~2024-01-17 | XR_ITS ---
STUDY: Left shoulder and left elbow INDICATION: Pain after fall COMPARISON: 09/16/2021 left elbow TECHNIQUE: 3 view left shoulder, 3 view left elbow FINDINGS: Left shoulder: Diffuse demineralization. Acromioclavicular joint space narrowing. Glenohumeral joint appears maintained. Calcification lateral aspect of the left humeral head seen on previous chest radiograph. No fracture or dislocation. Visualized ribs and lung are unremarkable. Left elbow alignment and articulations are maintained. Minor olecranon spurring. No fracture or dislocation. Rounded hyperdensity again noted in the antecubital fossa. XR/XR shoulder LT min 2V IMPRESSION: Demineralization. Mild degenerative changes. No acute bony pathology left shoulder and left elbow.
--- NOTE | 2024-01-17 10:49 | ED_ITS ---
HPI - General Adult General Chief complaint: General Medical Stated complaint: ETOH Time Seen by Provider: 01/17/24 10:49 Source: patient and EMS Mode of arrival: EMS Limitations: no limitations History of Present Illness HPI narrative: Patient is a 53 year old assigned male at with a history of alcohol abuse presenting to the emergency department today after being found intoxicated in an apartment complex hallway. [place] he decided to sleep in a hallway of an apartment building. Patient states that he never counts how many when he drinks. Patient denies any dizziness, lightheadedness, abdominal pain, nausea, vomiting, fever, chills, blurry vision, double vision, loss of vision, chest pain, difficulty breathing, shortness of breath, back pain, night sweats, pain with urination, increased urinary frequency, increased urinary urgency, blood in his urine or stool, syncope or a near syncopal episode, recent trauma or falls, bowel incontinence, bladder incontinence, bowel retention, bladder retention, or any other complaints at this time. Relieving factors: none Exacerbating factors: none Associated symptoms: denies other symptoms Treatments prior to arrival: none Related Data Previous Rx's Medication Instructions Recorded folic acid 1 mg tablet 1 mg PO DAILY #30 tabs 09/07/23 furosemide 20 mg tablet 20 mg PO BID@0900,1800 #60 tabs 09/07/23 lactulose 20 gram/30 mL oral 40 g (60 mL) PO TID #2,700 mL 09/07/23 solution magnesium oxide 400 mg (241.3 mg 400 mg PO BIDPC #60 tabs 09/07/23 magnesium) tablet omeprazole 40 mg capsule,delayed 40 mg PO DAILY@0630 #30 caps 09/07/23 release rifaximin 550 mg tablet (Xifaxan) 550 mg PO BID #60 tabs 09/07/23 spironolactone 25 mg tablet 12.5 mg PO BID@0900,1800 #30 tabs 09/07/23 sucralfate 1 gram tablet 1 g PO BIDAC #60 tabs 09/07/23 thiamine mononitrate (vit B1) 100 100 mg PO DAILY #30 tabs 09/07/23 mg tablet Allergies Allergy/AdvReac Type Severity Reaction Status Date / Time No Known Allergies Allergy Verified 01/17/24 10:56 [No Known Allergies*] Review of Systems Constitutional: Constitutional: Reports no additional constitutional complaints, Denies chills, Denies fever(s) and Denies night sweats Eyes: Eyes: Reports no additional eye complaints, Denies blurry vision, Denies change in vision, Denies diplopia, Denies eye discharge, Denies loss of vision and Denies eye pain ENT: Denies dizziness Cardiovascular: Cardiovascular: Reports no additional cardiovascular complaints, Denies chest pain, Denies lightheadedness, Denies Loss of Consciousness and Denies dyspnea Respiratory: Respiratory: Reports no additional respiratory complaints and Denies dyspnea Gastrointestinal: Gastrointestinal: Reports no additional gastrointestinal complaints, Denies abdominal pain, Denies melena, Denies hematochezia, Denies change in bowel habits and Denies change in stool character Genitourinary: Genitourinary: Reports no additional male genitourinary com plaints, Denies hematuria, Denies oliguria, Denies difficulty urinating, Denies dysuria, Denies urinary frequency, Denies urinary hesitancy, Denies urinary incontinence and Denies urinary urgency Musculoskeletal: Musculoskeletal: Reports no additional musculoskeletal complaints, Denies numbness and Denies tingling Neurologic: Denies dizziness, Denies loss of vision, Denies numbness and Denies tingling Psychiatric: Psychiatric: Reports no additional psychiatric complaints Endocrine: Endocrine: Reports no additional endocrine complaints Hematologic/Lymphatic: Hematologic/Lymphatic: Reports no additional hematologic/lymphatic complaints Allergic/Immunologic: Allergic/Immunologic: Reports no additional allergic/immunologic complaints PMFSH Past Medical History Attestation statement: The following information was validated with the patient. Source: old records reviewed and nursing notes reviewed Medical History Alcohol withdrawal syndrome Cirrhosis Malnutrition CHF (congestive heart failure) Anemia Aspiration pneumonia Pneumonia Hypomagnesemia Thrombocytopenia Alcoholic liver disease Acute on chronic anemia CHF (congestive heart failure) Anemia Alcohol abuse Surgical History No history of previous surgery Social History Social History Household Members: Other Household Members Other:: pt homeless Housing: Homeless Housing Other:: homeless Do you presently have visiting nurse or other home services: No Alcohol intake: current Alcohol intake frequency: 0-2 drinks per day Alcohol type: beer and hard liquor Comment: 1:1 sitter. Patient Tobacco Use Status: Former Tobacco user Quit Date: 12 years ago Tobacco use type: Cigarette Smoked in Last 30 Days: No Second Hand Smoke Exposure: No Use of substances other than those prescribed or required for medical reasons: No Advance Directives: Yes Advance Directives on File: Yes Advance Directives Date on File: 07/13/23 service: No Physical Exam ED Vital Signs: Vital Signs - 24 hr 01/17/24 10:56 01/17/24 14:00 01/17/24 16:45 Temperature 97.8 F 98.0 F 98.3 F Pulse Rate 75 77 80 Respiratory Rate 18 18 16 Blood Pressure 127/65 128/72 131/76 Pulse Oximetry 98 98 Oxygen Delivery Method Room Air Room Air BMI result Body Mass Index 19.4 Const General: cooperative, no acute distress, alert and awake Nutritional Appearance: well nourished Orientation/consciousness: patient oriented x3 Limitations: no limitations HENMT Head: Yes normal to inspection and Yes atraumatic Ears: hearing grossly normal bilaterally and external ears normal General nose exam: Normal external nose present, no nasal discharge noted and no epistaxis Face and sinus: Yes normal facial exam, No abrasion and No laceration Mouth: Normal oral and palatal mucosa present, no drooling and no muffled voice Eyes General: appearance normal, both eyes and all related structures Periorbital: periorbital findings normal Eyelids: Yes eyelids normal Conjunctivae: conjunctivae normal Pupils: Equal, round and reactive pupils present EOM: EOMs intact bilaterally Neck Neck: Yes normal visual inspection, Yes full ROM and Yes no lymphadenopathy Chest Chest palpation & inspection: normal inspection of the chest Resp Effort & Inspection: normal respiratory effort and able to speak in complete sentences GI Inspection: Yes normal to inspection Neuro General: patient oriented x3 and moves all extremities Cranial nerves: Yes Equal, round and reactive pupils present Cognition (Neuro): normal cognition Motor exam (neuro): 5/5 motor strength present throughout Sensory Exam: Normal double simultaneous stimulation for sensation Coordination: [id number] test normal Extrem General: Yes normal to inspection, Yes full ROM and Yes capillary refill normal Psych Appearance: grossly normal Mental Status: mental status grossly normal Affect: normal affect Attitude: cooperative Thought process: Normal thought process present Thought content: Normal thought content present Insight: Good insight present (Psych) Course Reevaluation(s) Reevaluation #1: Patient up ambulatory, he has been eating, he is requesting discharge. He is clinically sober for discharge and will be discharged to the community. Time: 18:35 Medical Decision Making Medical Decision Making MDM Narrative: Patient is a 53 year old assigned male at with a history of alcohol abuse presenting to the emergency department today after being found lying down in an apartment complex hallway. Patient's physical exam was unremarkable. Given the patient was found lying down, intoxicated, and has some dirt on his left arm - obtained a left shoulder + elbow XR and a CT head and c-spine. Patient's left shoulder and elbow x-rays showed no acute process. Patient's CT head and c-spine showed no acute process. I explained my physical exam findings as well as all test results to the patient. I answered all questions asked by the patient. Patient to remain in the department until clinically sober and can be discharged safely. Differential Diagnosis Differential Diagnoses: The differential diagnosis associated with the presentation includes Alcohol intoxication Alcohol abuse Admission/Observation Consideration of admission/observation: Escalation of care including admission/observation considered Patient would have been admitted to the hospital had his work up had any findings where hospital admission was appropriate and his clinical presentation warranted hospital admission. Independent Interpretation I performed an independent interpretation of an: Plain X-Ray and CT Scan Interpretation: My interpretation is in agreement with the radiologist's impression of these imaging studies. ------ STUDY: Left shoulder and left elbow INDICATION: Pain after fall COMPARISON: 09/16/2021 left elbow TECHNIQUE: 3 view left shoulder, 3 view left elbow FINDINGS: Left shoulder: Diffuse demineralization. Acromioclavicular joint space narrowing. Glenohumeral joint appears maintained. Calcification lateral aspect of the left humeral head seen on previous chest radiograph. No fracture or dislocation. Visualized ribs and lung are unremarkable. Left elbow alignment and articulations are maintained. Minor olecranon spurring. No fracture or dislocation. Rounded hyperdensity again noted in the antecubital fossa. XR/XR shoulder LT min 2V IMPRESSION: Demineralization. Mild degenerative changes. No acute bony pathology left shoulder and left elbow. Dictated By: Mary Patiño MD Signed By: Electronically signed by Mary Patiño MD 01/17/24 1208 EXAMINATION: CT HEAD WITHOUT CONTRAST CT CERVICAL SPINE WITHOUT CONTRAST CLINICAL INFORMATION: Fall with head strike. COMPARISON: CT imaging from 08/29/2023. TECHNIQUE: Contiguous axial imaging was performed from the skullbase to vertex without intravenous administration of contrast. Multidetector helical imaging was performed through the cervical spine. This CT examination was performed using dose optimization techniques as appropriate, variously including the following: *Automated exposure control *Adjustment of mA and/or kV according to patient size (this includes techniques or standardized protocols for targeted exams where dose is matched to indication/reason for exam; i.e. extremities or head) *Use of iterative reconstruction technique DLP: 605, 233 mGy-cm. FINDINGS: HEAD: There is no evidence of acute intracranial hemorrhage or territorial infarction. No abnormal mass effect or midline shift is seen. Weaver to white matter differentiation is well preserved. No extra-axial fluid collections are identified. There is mild to moderate generalized brain parenchymal volume loss for patient age. Commensurate ex vacuo dilatation of the ventricles also noted. The osseous structures and soft tissues are normal. The mastoid air cells and visualized portions of the paranasal sinuses are well aerated. CERVICAL SPINE: No acute fracture or significant subluxation is identified in the cervical spine. The disc spaces are maintained. Mild multilevel endplate spurring noted. Small central disc protrusion visible at the C3-C4 level. The atlantoaxial articulation is normally maintained. The paraspinal soft tissues are normal. The lung apices are clear. CT/CT head/brain wo IV con IMPRESSION: 1. No acute intracranial pathology. 2. No evidence of acute cervical spine traumatic injury. Dictated By: GAIL DELVALLE MD Signed By: Electronically signed by GAIL DELVALLE MD 01/17/24 4693 Radiology Impression Discussion of test interpretation with radiology: I have reviewed the radiologist's reading. Independent Historian Clinical information obtained from an independent historian. History obtained from or confirmed by: EMS (EMS provided additional history and confirmed the history provided by the patient.) Critical Care Time Critical Care Time Critical Care Time: Yes Total Critical Care Time: 35 Attestation: I spent 35 minutes of Critical Care Time with this patient. This does not include time spent on separately reported billable procedures. Discharge Plan Discharge Clinical Impression: Alcohol use disorder Patient Disposition: Home, Self-Care Instructions: Abuse of Alcohol (ED) Additional Instructions: Your x-rays and CT scans not show any evidence of traumatic injury. Avoid excessive consumption of alcohol Return for new or worsening symptoms Prescriptions: No Action sucralfate 1 gram Tablet 1 g PO BIDAC Qty: 60 0RF omeprazole 40 mg Capsule,Delayed Release(Dr/Ec) 40 mg PO DAILY@0630 Qty: 30 0RF spironolactone 25 mg Tablet 12.5 mg PO BID@0900,1800 Qty: 30 0RF Protocol: Hold for SBP< HOLD for SBP < : 90 magnesium oxide 400 mg (241.3 mg magnesium) Tablet 400 mg PO BIDPC Qty: 60 0RF folic acid 1 mg Tablet 1 mg PO DAILY Qty: 30 0RF furosemide 20 mg Tablet 20 mg PO BID@0900,1800 Qty: 60 0RF Protocol: Hold for SBP< HOLD for SBP < : 90 Xifaxan 550 mg Tablet 550 mg PO BID Qty: 60 0RF thiamine mononitrate (vit B1) 100 mg Tablet 100 mg PO DAILY Qty: 30 0RF lactulose 20 gram/30 mL Solution 40 g PO TID Qty: 2700 0RF
[2024-01-17 10:56] VITALS: BP 127/65; BP 142/86; PULSE 75; PULSE 82; RESP 18; TEMP 36.6; O2SAT 96; O2SAT 98; BMI 19.4
[2024-01-17 14:00] VITALS: BP 128/72; PULSE 77; RESP 18; TEMP 36.7; O2SAT 98
--- NOTE | 2024-01-17 14:31 | MHC.RECOVRN ---
Attempted to meet with pt in [id number] after consult placed to CARE Team for recovery support. Pt presented to the ED from apartment building where he was found laying in the hallway after alcohol use. Pt laying in bed, asleep, wakes to touch. Pt declines interest in ATS, only asks t/w where is breakfast? Pt informed it is after 2PM. Pt declines interest in further recovery discussion. Provider aware.
[2024-01-17 16:45] VITALS: BP 131/76; PULSE 80; RESP 16; TEMP 36.8
--- NOTE | 2024-01-17 17:54 | PC.NURSE ---
pt continues to sleep, wakes to verbal stimulus, vitals have been stable, pt offers no complaints, call harris within reach, will continue to monitor
== END 2024-01-17 18:51 | disposition home or self-care (01) ==
PROVIDERS: Emergency Provider Emergency Medicine
DX: F10.10 Alcohol abuse, uncomplicated (principal); M25.512 Pain in left shoulder; M25.522 Pain in left elbow; Z91.81 History of falling
CPT/HCPCS: 70450; 72125; 73030; 73070; 99284

== ENCOUNTER 2024-01-19 00:33 | Emergency (ER) | payer MEDICAID, SELFPAY ==
[2024-01-19 00:50] VITALS: BP 136/66; PULSE 86; RESP 16; TEMP 36.6; O2SAT 99
--- NOTE | 2024-01-19 00:51 | ED_ITS ---
HPI - Alcohol General Chief Complaint: ETOH/Substance Use Stated Complaint: ETOH USE,BLE PAIN S/P FALL 2 WKS AGO PER EMS Time Seen by Provider: 01/19/24 00:40 Source: patient and old records reviewed Mode of arrival: EMS Limitations: no limitations History of Present Illness HPI narrative: 53 yo male with PMH of pneumonia, ETOH liver disease, CHF, anemia, alcohol abuse here after walking around and hanging outside the Fire [place] after ETOH use and they called EMS. He has no complaints no SI/HI. Just seen here 3/ after a fall xrays and CT scans negative he did not fall today has no signs of trauma today. He has no SI. He does not want detox or SUDE evaluation. MD complaint: alcohol dependence Last drink: Hours (ago) Chronic alcohol use: Yes Previous visits for alcohol intoxication: Yes Recent trauma: No Associated symptoms: denies other symptoms Treatments prior to arrival: none Related Data Previous Rx's Medication Instructions Recorded folic acid 1 mg tablet 1 mg PO DAILY #30 tabs 09/07/23 furosemide 20 mg tablet 20 mg PO BID@0900,1800 #60 tabs 09/07/23 lactulose 20 gram/30 mL oral 40 g (60 mL) PO TID #2,700 mL 09/07/23 solution magnesium oxide 400 mg (241.3 mg 400 mg PO BIDPC #60 tabs 09/07/23 magnesium) tablet omeprazole 40 mg capsule,delayed 40 mg PO DAILY@0630 #30 caps 09/07/23 release rifaximin 550 mg tablet (Xifaxan) 550 mg PO BID #60 tabs 09/07/23 spironolactone 25 mg tablet 12.5 mg PO BID@0900,1800 #30 tabs 09/07/23 sucralfate 1 gram tablet 1 g PO BIDAC #60 tabs 09/07/23 thiamine mononitrate (vit B1) 100 100 mg PO DAILY #30 tabs 09/07/23 mg tablet Allergies Allergy/AdvReac Type Severity Reaction Status Date / Time No Known Allergies Allergy Verified 01/17/24 10:56 [No Known Allergies*] Review of Systems Review of Systems: Constitutional : No Fever, No Chills ENT/Mouth : No Ear Pain, No Hoarseness, No sore throat Eyes: No Eye Pain, No Swelling, No Redness, No Foreign Body Cardiovascular : No Chest Pain, No SOB Respiratory : No Cough, No Dyspnea Gastrointestinal : No Nausea, No Vomiting, No Diarrhea, No abdominal Pain Genitourinary : No Dysuria, No Hematuria Musculoskeletal : positive joint pain, No Myalgias, No Joint Swelling Skin : No Skin lacerations, No rash Neuro : No Weakness, No Numbness, No Loss of Consciousness, No Dizziness, No Headache Psych : No Anxiety/Panic, No Depression All other systems reviewed and are negative [facility] Past Medical History Attestation statement: The following information was validated with the patient. Source: old records reviewed Medical History Alcohol withdrawal syndrome Cirrhosis Malnutrition CHF (congestive heart failure) Anemia Aspiration pneumonia Pneumonia Hypomagnesemia Thrombocytopenia Alcoholic liver disease Acute on chronic anemia CHF (congestive heart failure) Anemia Alcohol abuse Surgical History No history of previous surgery Social History Social History Household Members: Other Household Members Other:: pt homeless Housing: Homeless Housing Other:: homeless Do you presently have visiting nurse or other home services: No Alcohol intake: current Alcohol intake frequency: 0-2 drinks per day Alcohol type: beer and hard liquor Comment: 1:1 sitter. Patient Tobacco Use Status: Former Tobacco user Quit Date: 12 years ago Tobacco use type: Cigarette Second Hand Smoke Exposure: No Advance Directives: Yes Advance Directives on File: Yes Advance Directives Date on File: 07/13/23 service: No Physical Exam ED Vital Signs: Vital Signs - 24 hr 01/19/24 00:50 Temperature 97.9 F Pulse Rate 86 Respiratory Rate 16 Blood Pressure 136/66 Pulse Oximetry 99 Oxygen Delivery Method Room Air BMI result Body Mass Index 23.4 Appearance: Alert. Oriented X3. No acute distress. Eyes: Pupils equal, round and reactive to light. ENT: Pharynx normal. atraumatic Neck: Normal inspection. Neck supple. CVS: Normal heart rate and rhythm. Pulses normal. Respiratory: No respiratory distress. Breath sounds normal. Abdomen: Soft and nontender. Skin: Skin warm and dry. Normal skin color. Normal skin turgor. Extremities: No lower extremity edema. No calf ttp Neuro: Oriented X 3. No motor deficit. No sensory deficit. Course Course Course Narrative: clinically sober steady gait observation ended 6am Medical Decision Making Medical Decision Making MDM Narrative: 53 yo male with PMH of pneumonia, ETOH liver disease, CHF, anemia, alcohol abuse here after hanging out near Fire Station after ETOH he has no SI or medical complaints no new falls at this time will monitor and allow to rest until AM if he wants he is not very intoxicated and has a steady gait at this time. He is alert and oriented x 3. He is not sectionable if he tries to leave. Differential Diagnosis Differential Diagnoses: The differential diagnosis associated with the presentation includes etoh abuse, homelessness Admission/Observation Consideration of admission/observation: Escalation of care including admission/observation considered observe until AM if he allows physician observation started at 1255am given ETOH use and need to keep overnight for safe housing and disposition Independent Interpretation I performed an independent interpretation of an: Plain X-Ray (L shoulder from 01/16 normal ) Radiology Impression Discussion of test interpretation with radiology: I have reviewed the radiologist's reading. Independent Historian Clinical information obtained from an independent historian. History obtained from or confirmed by: EMS External Record Review External record reviewed: Inpatient record Social Determinants Patient?s care significantly limited by Social Determinants of Health including: Inadequate housing, Low income, Problems related to primary support group and Unemployment Discharge Plan Discharge Clinical Impression: Alcohol use disorder Patient Disposition: Home, Self-Care Instructions: Alcohol Use Disorder (ED) Additional Instructions: xray of shoulder was normal return for any worsening symptoms or concerns. stop drinking so much alcohol Prescriptions: No Action sucralfate 1 gram Tablet 1 g PO BIDAC Qty: 60 0RF omeprazole 40 mg Capsule,Delayed Release(Dr/Ec) 40 mg PO DAILY@0630 Qty: 30 0RF spironolactone 25 mg Tablet 12.5 mg PO BID@0900,1800 Qty: 30 0RF Protocol: Hold for SBP< HOLD for SBP < : 90 magnesium oxide 400 mg (241.3 mg magnesium) Tablet 400 mg PO BIDPC Qty: 60 0RF folic acid 1 mg Tablet 1 mg PO DAILY Qty: 30 0RF furosemide 20 mg Tablet 20 mg PO BID@0900,1800 Qty: 60 0RF Protocol: Hold for SBP< HOLD for SBP < : 90 Xifaxan 550 mg Tablet 550 mg PO BID Qty: 60 0RF thiamine mononitrate (vit B1) 100 mg Tablet 100 mg PO DAILY Qty: 30 0RF lactulose 20 gram/30 mL Solution 40 g PO TID Qty: 2700 0RF
[2024-01-19 00:52] VITALS: BP 118/69; PULSE 96; O2SAT 96; BMI 23.4
--- NOTE | 2024-01-19 01:22 | PC.NURSE ---
PT PATTED DOWN BY SECURITY TO ENSURE NO ALCOHOL PRESENT ON. PT CALM/COOPERATIVE.
[2024-01-19 05:56] VITALS: BP 107/55; PULSE 84; RESP 14; TEMP 37.3; O2SAT 96
== END 2024-01-19 14:14 | disposition home or self-care (01) ==
PROVIDERS: Emergency Provider Emergency Medicine
DX: F10.10 Alcohol abuse, uncomplicated (principal)
CPT/HCPCS: 99284

== ENCOUNTER 2024-01-20 00:57 | Emergency (ER) | payer MEDICAID, SELFPAY ==
[2024-01-20 01:04] VITALS: BP 128/74; PULSE 94; O2SAT 98; BMI 22.8
[2024-01-20 01:39] LABS: MANUAL DIFF FLAG NO
[2024-01-20 01:41] LABS: Basophils Percent Auto 0.7 % (0-2); Eosinophils Absolute Auto 0.1 X10*3/uL (0.0-0.4); Eosinophils Percent Auto 2.4 % (0-4); Hematocrit 29.8 % (42.0-52.0); Imm Gran Abs Auto 0.01 X10*3/uL (0.00-0.03); Imm Gran Pct Auto 0.2 % (0.0-0.4); Lymphocytes Absolute Auto 1.3 X10*3/uL (1.2-4.9); Lymphocytes Percent Auto 29.2 % (20-40); Mean Corpuscular HGB Conc 33.6 g/dl (31.0-36.0); Mean Corpuscular Hemoglobin 31.3 pg (27.0-33.0); Mean Corpuscular Volume 93.4 fL (80.0-98.0); Mean Platelet Volume 11.1 fL (9.4-12.4); Monocytes Absolute Auto 0.7 X10*3/uL (0.1-1.2); Monocytes Percent Auto 14.3 % (2-11); Neutrophils Absolute Auto 2.4 x10*3/uL (2.0-8.3); Neutrophils Percent Auto 53.2 % (45-73); Red Blood Count 3.19 X10*6/uL (4.60-5.80); Red Cell Distribution Width 13.1 % (11.0-16.0); White Blood Count 4.6 X10*3/uL (4.8-10.8)
[2024-01-20 01:42] LABS: Platelet Count 63 X10*3/uL (160-400)
[2024-01-20 01:47] LABS: INTERNATIONAL NORM RATIO 1.1 (0.9-1.1); Prothrombin Time 13.7 SEC (11.1-13.3)
[2024-01-20 01:49] LABS: Partial Thromboplastin Time 37.6 SEC (26.0-36.8)
[2024-01-20 01:57] LABS: Alanine Aminotransferase 16 U/L (0-40); Albumin Level 3.8 g/dL (3.5-5.0); Alkaline Phosphatase 135 U/L (39-117); Anion Gap 12 (12-20); Aspartate Amino Transferase 50 U/L (5-37); Bilirubin Total 0.6 mg/dL (0.0-1.0); Blood Urea Nitrogen 14 mg/dL (9-16); Calcium 9.2 mg/dL (8.4-10.2); Carbon Dioxide 23 mmol/L (22-29); Chloride 112 mmol/L (96-108); Creatinine Clr Calc Pharmacy 92.8; Estimated Glomerular Filt Rate > 60; Ethanol 250 mg/dL; Glucose Random 113 mg/dL (60-115); Potassium 3.9 mmol/L (3.3-5.1); Sodium 143 mmol/L (135-145); Total Protein 7.9 g/dL (6.5-8.0)
--- NOTE | 2024-01-20 03:29 | ED.GENADULT ---
HPI - General Adult General Chief complaint: Epistaxis Stated complaint: nose bleed ETOH Time Seen by Provider: 01/20/24 01:14 History of Present Illness HPI narrative: The patient is a 53-year-old homeless alcoholic who went to a local fire station because he had a nosebleed. There was no injury. He went to a fire station because of the bleeding and was brought here by ambulance. The bleeding had stopped by the time of arrival. Related Data Previous Rx's Medication Instructions Recorded folic acid 1 mg tablet 1 mg PO DAILY #30 tabs 09/07/23 furosemide 20 mg tablet 20 mg PO BID@0900,1800 #60 tabs 09/07/23 lactulose 20 gram/30 mL oral 40 g (60 mL) PO TID #2,700 mL 09/07/23 solution magnesium oxide 400 mg (241.3 mg 400 mg PO BIDPC #60 tabs 09/07/23 magnesium) tablet omeprazole 40 mg capsule,delayed 40 mg PO DAILY@0630 #30 caps 09/07/23 release rifaximin 550 mg tablet (Xifaxan) 550 mg PO BID #60 tabs 09/07/23 spironolactone 25 mg tablet 12.5 mg PO BID@0900,1800 #30 tabs 09/07/23 sucralfate 1 gram tablet 1 g PO BIDAC #60 tabs 09/07/23 thiamine mononitrate (vit B1) 100 100 mg PO DAILY #30 tabs 09/07/23 mg tablet Allergies Allergy/AdvReac Type Severity Reaction Status Date / Time No Known Allergies Allergy Verified 01/17/24 10:56 [No Known Allergies*] Review of Systems Review of Systems: Yes all other systems are reviewed and are negative ON LICENSE OF [facility] Past Medical History Medical History Alcohol withdrawal syndrome Cirrhosis Malnutrition CHF (congestive heart failure) Anemia Aspiration pneumonia Pneumonia Hypomagnesemia Thrombocytopenia Alcoholic liver disease Acute on chronic anemia CHF (congestive heart failure) Anemia Alcohol abuse Surgical History No history of previous surgery Social History Social History Household Members: Other Household Members Other:: pt homeless Housing: Homeless Housing Other:: homeless Do you presently have visiting nurse or other home services: No Alcohol intake: current Alcohol intake frequency: 3 or more drinks per day Alcohol type: beer and hard liquor Comment: 1:1 sitter. Patient Tobacco Use Status: Former Tobacco user Quit Date: 12 years ago Tobacco use type: Cigarette Second Hand Smoke Exposure: No Advance Directives: Yes Advance Directives on File: Yes Advance Directives Date on File: 07/13/23 service: No Physical Exam ED Vital Signs: Vital Signs - 24 hr 01/20/24 06:09 Temperature 99.7 F Pulse Rate 88 Respiratory Rate 14 Blood Pressure 98/46 L Pulse Oximetry 99 Oxygen Delivery Method Room Air BMI result Body Mass Index 22.8 Const Other: The patient is a frail looking 53-year-old who looks chronically ill. He does not appear in acute distress however. HENMT Other: There was blood in both nares. There was signs of recent bleeding from the left anterior septum. No ongoing bleeding Eyes Other: Pupils are round equal, conjunctivae clear Neck Other: No JVD, moving his neck easily Resp Effort & Inspection: normal respiratory effort Auscultation: clear to auscultation bilaterally Cardio Rate: regular rate Rhythm: regular rhythm and abnormal rhythm Skin Other: Skin is pale and dry Neuro Other: The patient is awake and alert. He is some mild slurring of speech consistent with alcohol intoxication. However he seemed reasonably steady on his feet. Extrem Other: No deformity of the extremities Medications Administered Discontinued Medications Generic Name Dose Route Start Last Admin Trade Name David PRN Reason Stop Dose Admin Oxymetazoline HCl 2 spray 01/20/24 06:18 01/20/24 06:22 Oxymetazoline Hcl 0.05 % Nasal 15 Ml [place] NOSTRIL-B 01/20/24 06:19 2 spray ONCE ONE Administration Medical Decision Making Medical Decision Making MDM Narrative: The patient is an alcoholic. He is also homeless. He presents with a spontaneous left-sided nosebleed. The bleeding had stopped by the time he arrived here and there was no need for acute intervention. He was observed for several hours during which time he had no significant ongoing bleeding. Labs were done that show chronic thrombocytopenia. His hemoglobin however was higher than when last checked Ultimately I administered some oxymetazoline and applied a nasal clamp. This was left on for about half an hour. He then said that he wanted to be discharged so that he could get some more beer. He is encouraged to try to get a regular doctor. He was advised to try being seen at the [facility]. He should return if worse. Lab Data 01/20/24 01:33 01/20/24 01:33 Labs: Lab Results 01/20/24 Range/Units 01:33 WBC 4.6 L (4.8-10.8) X10*3/uL RBC 3.19 L D (4.60-5.80) X10*6/uL Hgb 10.0 L (14.0-18.0) g/dl Hct 29.8 L (42.0-52.0) % MCV 93.4 (80.0-98.0) fL MCH 31.3 (27.0-33.0) pg MCHC 33.6 (31.0-36.0) g/dl RDW 13.1 (11.0-16.0) % Plt Count 63 L (160-400) X10*3/uL MPV 11.1 (9.4-12.4) fL Immature Gran % (Auto) 0.2 (0.0-0.4) % Neut % (Auto) 53.2 (45-73) % Lymph % (Auto) 29.2 (20-40) % Major % (Auto) 14.3 H (2-11) % Eos % (Auto) 2.4 (0-4) % Baso % (Auto) 0.7 (0-2) % Lymph # (Auto) 1.3 (1.2-4.9) X10*3/uL Major # (Auto) 0.7 (0.1-1.2) X10*3/uL Eos # (Auto) 0.1 (0.0-0.4) X10*3/uL Baso # (Auto) 0.0 (0.0-0.2) X10*3/uL Abs Immat Gran (auto) 0.01 (0.00-0.03) X10*3/uL Absolute Neuts (auto) 2.4 (2.0-8.3) x10*3/uL Absolute Nucleated RBC 0.000 (0.0-0.012) X10*3/uL Nucleated RBC % (auto) 0.0 (0.0-0.2) /100WBC PT 13.7 H D (11.1-13.3) SEC INR 1.1 (0.9-1.1) APTT 37.6 H (26.0-36.8) SEC Sodium 143 (135-145) mmol/L Potassium 3.9 (3.3-5.1) mmol/L Chloride 112 H (96-108) mmol/L Carbon Dioxide 23 (22-29) mmol/L Anion Gap 12 (12-20) BUN 14 (9-16) mg/dL Creatinine 0.85 (0.5-1.4) mg/dL Estim Creat Clear Calc 92.8 Estimated GFR > 60 Random Glucose 113 (60-115) mg/dL Calcium 9.2 (8.4-10.2) mg/dL Total Bilirubin 0.6 (0.0-1.0) mg/dL AST 50 H (5-37) U/L ALT 16 (0-40) U/L Alkaline Phosphatase 135 H (39-117) U/L Total Protein 7.9 (6.5-8.0) g/dL Albumin 3.8 (3.5-5.0) g/dL Ethyl Alcohol 250 mg/dL Discharge Plan Discharge Clinical Impression: Acute anterior epistaxis Patient Disposition: Home, Self-Care Additional Instructions: Please try to minimize alcohol use. If you have additional bleeding you may use the clip provided to see if it help stop the bleeding. Please try to follow up with the [facility]. If the clip does not stop the bleeding return to the emergency room for re-evaluation. Prescriptions: No Action sucralfate 1 gram Tablet 1 g PO BIDAC Qty: 60 0RF omeprazole 40 mg Capsule,Delayed Release(Dr/Ec) 40 mg PO DAILY@0630 Qty: 30 0RF spironolactone 25 mg Tablet 12.5 mg PO BID@0900,1800 Qty: 30 0RF Protocol: Hold for SBP< HOLD for SBP < : 90 magnesium oxide 400 mg (241.3 mg magnesium) Tablet 400 mg PO BIDPC Qty: 60 0RF folic acid 1 mg Tablet 1 mg PO DAILY Qty: 30 0RF furosemide 20 mg Tablet 20 mg PO BID@0900,1800 Qty: 60 0RF Protocol: Hold for SBP< HOLD for SBP < : 90 Xifaxan 550 mg Tablet 550 mg PO BID Qty: 60 0RF thiamine mononitrate (vit B1) 100 mg Tablet 100 mg PO DAILY Qty: 30 0RF lactulose 20 gram/30 mL Solution 40 g PO TID Qty: 2700 0RF Referrals: [facility] [Primary Care Provider] - (Alcohol use disorder, nosebleed) Interventions: ED Discharge Assessment Last Done: 01/20/24 08:20 Discharge Date/Time: 01/20/24 08:20
[2024-01-20 06:09] VITALS: BP 98/46; PULSE 88; RESP 14; TEMP 37.6; O2SAT 99
[2024-01-20] MEDS: Oxymetazoline HCl 0.05 % Nasal 15 ML SPRAY 2 SPRAY NOSTRIL-B (06:22)
== END 2024-01-20 08:20 | disposition home or self-care (01) ==
PROVIDERS: Emergency Provider Emergency Medicine
DX: R04.0 Epistaxis (principal); F10.20 Alcohol dependence, uncomplicated; I50.9 Heart failure, unspecified; Z59.00 Homelessness unspecified
CPT/HCPCS: 36415; 80053; 80307; 85025; 85610; 85730; 99283; 99284

== ENCOUNTER 2024-01-20 22:02 | Emergency (ER) | payer MEDICAID, SELFPAY ==
[2024-01-20 22:09] VITALS: BP 160/80; PULSE 100; O2SAT 99
[2024-01-20 22:11] VITALS: BMI 24.1
--- NOTE | 2024-01-20 23:01 | ED.ALCOHOL ---
HPI - Alcohol General Chief Complaint: ETOH/Substance Use Stated Complaint: ETOH requiring place to detox, homeless Time Seen by Provider: 01/20/24 22:39 Source: patient and EMS Mode of arrival: EMS Limitations: no limitations History of Present Illness HPI narrative: 53-year-old male homeless is well known to our staff with history of alcohol abuse, CHF, liver cirrhosis, patient admit to drinking alcohol last drink was few hours ago, no head injury, no bleeding, patient is complaining of left shoulder pain for a year, patient had a previous evaluation in the emergency department and had x-ray of the left shoulder which is showing Demineralization. Mild degenerative changes. No acute bony pathology left shoulder and left elbow. Related Data Previous Rx's Medication Instructions Recorded folic acid 1 mg tablet 1 mg PO DAILY #30 tabs 09/07/23 furosemide 20 mg tablet 20 mg PO BID@0900,1800 #60 tabs 09/07/23 lactulose 20 gram/30 mL oral 40 g (60 mL) PO TID #2,700 mL 09/07/23 solution magnesium oxide 400 mg (241.3 mg 400 mg PO BIDPC #60 tabs 09/07/23 magnesium) tablet omeprazole 40 mg capsule,delayed 40 mg PO DAILY@0630 #30 caps 09/07/23 release rifaximin 550 mg tablet (Xifaxan) 550 mg PO BID #60 tabs 09/07/23 spironolactone 25 mg tablet 12.5 mg PO BID@0900,1800 #30 tabs 09/07/23 sucralfate 1 gram tablet 1 g PO BIDAC #60 tabs 09/07/23 thiamine mononitrate (vit B1) 100 100 mg PO DAILY #30 tabs 09/07/23 mg tablet Allergies Allergy/AdvReac Type Severity Reaction Status Date / Time No Known Allergies Allergy Verified 01/17/24 10:56 [No Known Allergies*] Review of Systems Review of Systems: All other systems are reviewed and are negative Constitutional: Reports as per HPI and Reports no additional constitutional complaints Eyes: Reports as per HPI and Reports no additional eye complaints Reports system reviewed and no additional complaints, except as documented Cardiovascular: Reports as per HPI and Reports no additional cardiovascular complaints Respiratory: Reports as per HPI and Reports no additional respiratory complaints Gastrointestinal: Reports as per HPI and Reports no additional gastrointestinal complaints Genitourinary: Reports no additional female genitourinary complaints Musculoskeletal: Reports no additional musculoskeletal complaints Skin/Breast: Reports system reviewed and no additional complaints, except as docu Psychiatric: Reports no additional psychiatric complaints Endocrine: Reports no additional endocrine complaints Hematologic/Lymphatic: Reports no additional hematologic/lymphatic complaints Allergic/Immunologic: Reports no additional allergic/immunologic complaints Reports system reviewed and no additional complaints, except as documented and Reports Abnormal speech present [facility] Past Medical History Medical History Alcohol withdrawal syndrome Cirrhosis Malnutrition CHF (congestive heart failure) Anemia Aspiration pneumonia Pneumonia Hypomagnesemia Thrombocytopenia Alcoholic liver disease Acute on chronic anemia CHF (congestive heart failure) Anemia Alcohol abuse Surgical History No history of previous surgery Social History Social History Household Members: Other Household Members Other:: pt homeless Housing: Homeless Housing Other:: homeless Do you presently have visiting nurse or other home services: No Alcohol intake: current Alcohol intake frequency: 3 or more drinks per day Alcohol type: beer and hard liquor Comment: 1:1 sitter. Patient Tobacco Use Status: Former Tobacco user Quit Date: 12 years ago Tobacco use type: Cigarette Second Hand Smoke Exposure: No Advance Directives: Yes Advance Directives on File: Yes Advance Directives Date on File: 07/13/23 service: No Physical Exam ED Vital Signs: Vital Signs - 24 hr 01/21/24 05:47 Temperature 98.8 F Pulse Rate 86 Respiratory Rate 14 Pulse Oximetry 93 Oxygen Delivery Method Room Air BMI result Body Mass Index 24.1 Vital signs have been reviewed and appear to be correct. Blood pressure elevated. Heart rate normal. Respiratory rate normal. Temperature normal. Oxygen saturation normal. Appearance: Alert. Oriented X3. No acute distress. Head: Normal external exam. Normocephalic. Atraumatic. No [place] signs noted. No raccoon eyes noted Eyes: PERRLA. EOMI. Conjunctiva and sclera normal. Eyelids normal. ENT: TM's Normal. Pharynx normal. Uvula midline. Moist mucous membranes. No trismus noted. No drooling noted. No muffled voice noted. Neck: Normal inspection. Neck supple. FROM. No adenopathy. Thyroid Normal. No meningeal signs. No neck mass noted. CVS: Normal heart rate and rhythm. Heart sound normal. No murmurs noted. Pulses normal throughout. Respiratory: No respiratory distress. Painless inspiration. Breath sounds normal. No wheezes/rales/rhonchi noted. Chest nontender. No accessory muscle usage noted or decreased air movement noted. Abdomen: Soft and nontender. Bowel sounds normal in all 4 quadrants. No distention noted. No organomegaly noted. No visible injury noted. Back: No CVA tenderness. Full range of motion noted. Skin: Skin warm and dry. Normal skin color. Normal skin turgor. No rashes/lesions/lacerations noted. Extremities: No lower extremity edema. Extremities exhibit normal range of motion. Extremities nontender. Neuro: Oriented X 3. Cranial nerve exam: II-XII are grossly intact No motor deficit. No sensory deficit. Reflexes normal. Course Reevaluation(s) Reevaluation #1: Will start physician observation keep monitoring patient vital signs and patient until he is sober and able to be discharged home. Time: 00:29 Reevaluation #2: Patient is sober, no SI, no HI, no hallucination feels okay to be discharged home. Time: 06:55 Medical Decision Making Differential Diagnosis Differential Diagnoses: The differential diagnosis associated with the presentation includes (Acute alcohol intoxication, dehydration, SI, HI) Admission/Observation Consideration of admission/observation: Escalation of care including admission/observation considered Chronic Conditions Patient?s care impacted by: Other (Homelessness, alcohol abuse.) Discharge Plan Discharge Clinical Impression: Alcohol use disorder Patient Disposition: Home, Self-Care Instructions: Abuse of Alcohol (ED) Prescriptions: No Action sucralfate 1 gram Tablet 1 g PO BIDAC Qty: 60 0RF omeprazole 40 mg Capsule,Delayed Release(Dr/Ec) 40 mg PO DAILY@0630 Qty: 30 0RF spironolactone 25 mg Tablet 12.5 mg PO BID@0900,1800 Qty: 30 0RF Protocol: Hold for SBP< HOLD for SBP < : 90 magnesium oxide 400 mg (241.3 mg magnesium) Tablet 400 mg PO BIDPC Qty: 60 0RF folic acid 1 mg Tablet 1 mg PO DAILY Qty: 30 0RF furosemide 20 mg Tablet 20 mg PO BID@0900,1800 Qty: 60 0RF Protocol: Hold for SBP< HOLD for SBP < : 90 Xifaxan 550 mg Tablet 550 mg PO BID Qty: 60 0RF thiamine mononitrate (vit B1) 100 mg Tablet 100 mg PO DAILY Qty: 30 0RF lactulose 20 gram/30 mL Solution 40 g PO TID Qty: 2700 0RF
[2024-01-21 05:47] VITALS: PULSE 86; RESP 14; TEMP 37.1; O2SAT 93
== END 2024-01-21 08:37 | disposition home or self-care (01) ==
PROVIDERS: Emergency Provider Emergency Medicine
DX: F10.10 Alcohol abuse, uncomplicated (principal); I50.9 Heart failure, unspecified; Z59.00 Homelessness unspecified
CPT/HCPCS: 99283; 99284

== ENCOUNTER 2024-01-21 15:16 | Emergency (ER) | payer MEDICAID, SELFPAY ==
[2024-01-21 15:25] VITALS: BP 134/82; PULSE 78; O2SAT 97
[2024-01-21 15:32] VITALS: BP 133/61; PULSE 70; RESP 16; TEMP 36.6; O2SAT 97
[2024-01-21 15:37] VITALS: BMI 19.4
--- NOTE | 2024-01-21 15:40 | MHC.EDTECH ---
PATIENT WAS BIBA [facility]RE[facility] ,VITALS TAKEN ,PATIENT WAS [facility] INTO HOSPITAL ATTIRE ,PATIENT BELONINGS ARE LOCKED UP IN LOCKER # 12.
--- NOTE | 2024-01-21 15:42 | ED_ITS ---
HPI - General Adult General Chief complaint: Extremity Problem Stated complaint: ETOH, L arm pain, back pain Time Seen by Provider: 01/21/24 15:40 Source: patient, EMS and RN notes reviewed Mode of arrival: EMS Limitations: no limitations History of Present Illness HPI narrative: Patient is a 53-year-old male with history of chronic alcohol abuse, homeless, presenting to the emergency department with complaint of left shoulder pain. States pain has been ongoing, and that he mentioned it at his ED visit yesterday. Also states that he vomited twice this morning and noted blood in his emesis. States he continued to drink beer after this occurred. Denies abdominal pain. Denies chest pain, palpitations, shortness of breath, dizziness or lightheadedness. MD complaint: hematemesis, left shoulder pain Onset (ago): hour(s) Quality: aching Pain Consistency: colicky Relieving factors: rest Exacerbating factors: movement Treatments prior to arrival: none Related Data Previous Rx's Medication Instructions Recorded folic acid 1 mg tablet 1 mg PO DAILY #30 tabs 09/07/23 furosemide 20 mg tablet 20 mg PO BID@0900,1800 #60 tabs 09/07/23 lactulose 20 gram/30 mL oral 40 g (60 mL) PO TID #2,700 mL 09/07/23 solution magnesium oxide 400 mg (241.3 mg 400 mg PO BIDPC #60 tabs 09/07/23 magnesium) tablet omeprazole 40 mg capsule,delayed 40 mg PO DAILY@0630 #30 caps 09/07/23 release rifaximin 550 mg tablet (Xifaxan) 550 mg PO BID #60 tabs 09/07/23 spironolactone 25 mg tablet 12.5 mg PO BID@0900,1800 #30 tabs 09/07/23 sucralfate 1 gram tablet 1 g PO BIDAC #60 tabs 09/07/23 thiamine mononitrate (vit B1) 100 100 mg PO DAILY #30 tabs 09/07/23 mg tablet Allergies Allergy/AdvReac Type Severity Reaction Status Date / Time No Known Allergies Allergy Verified 01/17/24 10:56 [No Known Allergies*] Review of Systems 2 Review of Systems: As per HPI. Yes all other systems are reviewed and are negative Constitutional: Constitutional: Reports as per HPI PMFSH Past Medical History Medical History Alcohol withdrawal syndrome Cirrhosis Malnutrition CHF (congestive heart failure) Anemia Aspiration pneumonia Pneumonia Hypomagnesemia Thrombocytopenia Alcoholic liver disease Acute on chronic anemia CHF (congestive heart failure) Anemia Alcohol abuse Surgical History No history of previous surgery Social History Social History Household Members: Other Household Members Other:: pt homeless Housing: Homeless Housing Other:: homeless Do you presently have visiting nurse or other home services: No Alcohol intake: current Alcohol intake frequency: 3 or more drinks per day Alcohol type: beer and hard liquor Comment: 1:1 sitter. Patient Tobacco Use Status: Former Tobacco user Quit Date: 12 years ago Tobacco use type: Cigarette Second Hand Smoke Exposure: No Advance Directives: Yes Advance Directives on File: Yes Advance Directives Date on File: 07/13/23 service: No Physical Exam ED Vital Signs: Vital Signs - 24 hr 01/21/24 15:32 01/21/24 18:18 Temperature 97.8 F 97.9 F Pulse Rate 70 81 Respiratory Rate 16 16 Blood Pressure 133/61 116/56 L Pulse Oximetry 97 97 Oxygen Delivery Method Room Air Room Air BMI result Body Mass Index 19.4 Vital signs have been reviewed and appear to be correct. Blood pressure normal. Heart rate normal. Respiratory rate normal. Temperature normal. Oxygen saturation normal. Const General: cooperative, healthy appearing and no acute distress Orientation/consciousness: oriented to person, oriented to place, oriented to time and patient oriented x3 Limitations: no limitations HENMT Head: Yes normocephalic and Yes atraumatic Ears: external ears normal General nose exam: Normal external nose present Face and sinus: Yes face symmetric Mouth: oropharynx normal and moist mucous membranes Throat: Yes uvula midline Eyes Pupils: Equal, round and reactive pupils present Neck Neck: Yes normal visual inspection and Yes supple Resp Effort & Inspection: normal respiratory effort and able to speak in complete sentences Auscultation: clear to auscultation bilaterally Cardio Rate: regular rate Rhythm: regular rhythm Heart sounds: S1 normal heart sound present and S2 normal heart sound present GI Inspection: Yes normal to inspection, No distended, No visible herniation and No visible pulsation Palpation (GI): Soft to palpation, nontender, no guarding, No Ascites present and No Rebound tenderness present Auscultation: normoactive bowel sounds General: Yes no CVA tenderness Back/Spine/Pelvis Back: no CVA tenderness Skin General skin exam: elasticity normal and turgor normal Neuro General: oriented to person, oriented to place, oriented to time, patient oriented x3, moves all extremities, no focal motor deficits and CN's II-XI intact bilaterally Cranial nerves: Yes Equal, round and reactive pupils present Cognition (Neuro): normal cognition Extrem General: Yes full ROM, Yes no pedal edema and Yes no calf tenderness Left upper extremity: shoulder/upper arm Details: inspection abnormal, tenderness Location: of the A-C joint, axillary nerve sensory function normal and normal ROM, wrist and hand Details: vascular exam Details: radial pulse present Psych Mental Status: mental status grossly normal Affect: normal affect Thought process: Normal thought process present Medical Decision Making Medical Decision Making [facility] Narrative: Patient is a 53-year-old male with history of chronic alcohol abuse, homeless, presenting to the emergency department with complaint of left shoulder pain. On exam patient is awake, A+Ox3, VS WNL, afebrile, normal neurological exam without focal deficits, physical exam findings as above. Given reported symptoms and physical exam findings, initial differential includes acute alcohol intoxication, dehydration, anemia, GI bleed, left shoulder strain, degenerative disease. Upon review of EMR, patient had L shoulder x-ray here on 01/16, noted to have demineralization, mild degenerative changes. Labs notable for chronic anemia, not at transfusable level, no other significant abnormalities. Patient now stating he wishes to leave, however, ETOH level is 252. Will place patient on physician observation and discharge when clinically sober. Patient requesting discharge. He is declining assistance with detox from alcohol. He is awake, A+Ox3, ambulating around department with steady gait. Feel he is stable for discharge at this time. Return precautions discussed. Instructed patient to follow up with PCP. Differential Diagnosis Differential Diagnoses: The differential diagnosis associated with the presentation includes As per [facility]. Admission/Observation Consideration of admission/observation: Escalation of care including admission/observation considered Lab Data [facility] Lab Attestation statement: I reviewed the patient's lab results. As per MDM. 01/21/24 15:59 01/21/24 15:59 Labs: Lab Results 01/21/24 Range/Units 15:59 WBC 3.8 L (4.8-10.8) X10*3/uL RBC 2.95 L (4.60-5.80) X10*6/uL Hgb 9.3 L (14.0-18.0) g/dl Hct 27.7 L (42.0-52.0) % MCV 93.9 (80.0-98.0) fL MCH 31.5 (27.0-33.0) pg MCHC 33.6 (31.0-36.0) g/dl RDW 12.9 (11.0-16.0) % Plt Count 48 L (160-400) X10*3/uL MPV 11.0 (9.4-12.4) fL Immature Gran % (Auto) 0.3 (0.0-0.4) % Neut % (Auto) 57.3 (45-73) % Lymph % (Auto) 28.5 (20-40) % [place] % (Auto) 10.7 (2-11) % Eos % (Auto) 2.4 (0-4) % Baso % (Auto) 0.8 (0-2) % Lymph # (Auto) 1.1 L (1.2-4.9) X10*3/uL [place] # (Auto) 0.4 (0.1-1.2) X10*3/uL Eos # (Auto) 0.1 (0.0-0.4) X10*3/uL Baso # (Auto) 0.0 (0.0-0.2) X10*3/uL Abs Immat Gran (auto) 0.01 (0.00-0.03) X10*3/uL Absolute Neuts (auto) 2.2 (2.0-8.3) x10*3/uL Absolute Nucleated RBC 0.000 (0.0-0.012) X10*3/uL Nucleated RBC % (auto) 0.0 (0.0-0.2) /100WBC Sodium 143 (135-145) mmol/L Potassium 3.4 (3.3-5.1) mmol/L Chloride 113 H (96-108) mmol/L Carbon Dioxide 22 (22-29) mmol/L Anion Gap 11 L (12-20) BUN 10 (9-16) mg/dL Creatinine 0.68 (0.5-1.4) mg/dL Estim Creat Clear Calc 95.6 Estimated GFR > 60 Random Glucose 104 (60-115) mg/dL Calcium 9.0 (8.4-10.2) mg/dL Total Bilirubin 0.9 (0.0-1.0) mg/dL AST 48 H (5-37) U/L ALT 18 (0-40) U/L Alkaline Phosphatase 154 H (39-117) U/L Total Protein 7.2 (6.5-8.0) g/dL Albumin 3.5 (3.5-5.0) g/dL Lipase 21 (8-78) U/L Ethyl Alcohol 252 mg/dL External Record Review External record reviewed: Inpatient record, Office record and Outpatient record Discharge Plan Discharge Clinical Impression: Alcohol use disorder Patient Disposition: Home, Self-Care Instructions: Abuse of Alcohol (DC), Alcohol Use Disorder (ED), Alcohol Withdrawal (DC), At-Risk Alcohol Use (ED) Prescriptions: No Action sucralfate 1 gram Tablet 1 g PO BIDAC Qty: 60 0RF omeprazole 40 mg Capsule,Delayed Release(Dr/Ec) 40 mg PO DAILY@0630 Qty: 30 0RF spironolactone 25 mg Tablet 12.5 mg PO BID@0900,1800 Qty: 30 0RF Protocol: Hold for SBP< HOLD for SBP < : 90 magnesium oxide 400 mg (241.3 mg magnesium) Tablet 400 mg PO BIDPC Qty: 60 0RF folic acid 1 mg Tablet 1 mg PO DAILY Qty: 30 0RF furosemide 20 mg Tablet 20 mg PO BID@0900,1800 Qty: 60 0RF Protocol: Hold for SBP< HOLD for SBP < : 90 Xifaxan 550 mg Tablet 550 mg PO BID Qty: 60 0RF thiamine mononitrate (vit B1) 100 mg Tablet 100 mg PO DAILY Qty: 30 0RF lactulose 20 gram/30 mL Solution 40 g PO TID Qty: 2700 0RF
--- NOTE | 2024-01-21 15:56 | PC.NURSE ---
pt refusing lab draw provider aware
[2024-01-21 16:04] LABS: MANUAL DIFF FLAG NO
[2024-01-21 16:06] LABS: Basophils Percent Auto 0.8 % (0-2); Eosinophils Absolute Auto 0.1 X10*3/uL (0.0-0.4); Eosinophils Percent Auto 2.4 % (0-4); Hematocrit 27.7 % (42.0-52.0); Hemoglobin 9.3 g/dl (14.0-18.0); Imm Gran Abs Auto 0.01 X10*3/uL (0.00-0.03); Imm Gran Pct Auto 0.3 % (0.0-0.4); Lymphocytes Absolute Auto 1.1 X10*3/uL (1.2-4.9); Lymphocytes Percent Auto 28.5 % (20-40); Mean Corpuscular HGB Conc 33.6 g/dl (31.0-36.0); Mean Corpuscular Hemoglobin 31.5 pg (27.0-33.0); Mean Corpuscular Volume 93.9 fL (80.0-98.0); Monocytes Absolute Auto 0.4 X10*3/uL (0.1-1.2); Monocytes Percent Auto 10.7 % (2-11); Neutrophils Absolute Auto 2.2 x10*3/uL (2.0-8.3); Neutrophils Percent Auto 57.3 % (45-73); Red Blood Count 2.95 X10*6/uL (4.60-5.80); Red Cell Distribution Width 12.9 % (11.0-16.0); White Blood Count 3.8 X10*3/uL (4.8-10.8)
[2024-01-21 16:07] LABS: Platelet Count 48 X10*3/uL (160-400)
[2024-01-21 16:19] LABS: Alanine Aminotransferase 18 U/L (0-40); Albumin Level 3.5 g/dL (3.5-5.0); Alkaline Phosphatase 154 U/L (39-117); Anion Gap 11 (12-20); Aspartate Amino Transferase 48 U/L (5-37); Bilirubin Total 0.9 mg/dL (0.0-1.0); Blood Urea Nitrogen 10 mg/dL (9-16); Carbon Dioxide 22 mmol/L (22-29); Chloride 113 mmol/L (96-108); Creatinine Clr Calc Pharmacy 95.6; Estimated Glomerular Filt Rate > 60; Ethanol 252 mg/dL; Glucose Random 104 mg/dL (60-115); Lipase 21 U/L (8-78); Potassium 3.4 mmol/L (3.3-5.1); Sodium 143 mmol/L (135-145); Total Protein 7.2 g/dL (6.5-8.0)
--- NOTE | 2024-01-21 17:53 | PC.NURSE ---
pt resting quietly on ED stretcher in [address], appears to be sleeping rise and fall of chest noted.
[2024-01-21 18:18] VITALS: BP 116/56; PULSE 81; RESP 16; TEMP 36.6; O2SAT 97
== END 2024-01-21 20:02 | disposition home or self-care (01) ==
PROVIDERS: Registered Nurse Emergency; Emergency Provider Emergency Medicine
DX: F10.129 Alcohol abuse with intoxication, unspecified (principal); Y90.8 Blood alcohol level of 240 mg/100 ml or more; Z79.899 Other long term (current) drug therapy
CPT/HCPCS: 36415; 80053; 80307; 83690; 85025; 99283

== ENCOUNTER 2024-01-21 23:56 | Inpatient (IN) | payer MEDICAID, SELFPAY ==
--- NOTE | ~2024-01-21 | XR_ITS ---
EXAMINATION: XR CHEST CLINICAL INFORMATION: Hypoxia COMPARISON: Chest x-ray on 08/29/2023 TECHNIQUE: Frontal upright view of the chest was obtained. FINDINGS: pulmonary vascularity. Bilateral upper lobe pulmonary vascular diversion is present. LUNGS: Lungs are clear. No pneumothorax is seen. None. XR/XR chest 1V IMPRESSION: 1. Recurrent prominent cardiac size and pulmonary venous congestion. 2. Interval resolution of left lateral lung base atelectasis or small pleural effusion.
--- NOTE | ~2024-01-21 | XR_ITS ---
EXAMINATION: XR CHEST CLINICAL INFORMATION: Fever. COMPARISON: 01/23/2024 TECHNIQUE: Frontal view of the chest was obtained. FINDINGS: The lungs are hypoexpanded. Worsening multifocal airspace disease. New small right pleural effusion. Cardiac silhouette is unchanged. XR/XR chest 1V IMPRESSION: Multifocal pneumonia. Small right pleural effusion. Follow-up until resolution is advised.
[2024-01-22] VITALS (18 sets, daily range): BP systolic 96–149; BP diastolic 51–82; PULSE 72–88; RESP 13–20; TEMP 36.4–37.1; O2SAT 91–99; BMI 19.4
--- NOTE | 2024-01-22 00:37 | ED.GENADULT ---
HPI - General Adult General Chief complaint: General Medical Stated complaint: fall and ETOH Time Seen by Provider: 01/22/24 00:31 Source: patient and EMS Mode of arrival: EMS Limitations: no limitations History of Present Illness HPI narrative: Patient comes to the emergency room by EMS. According to EMS, patient was trying to get into the fire department seeking medical help. Patient states that he went to bed and then woke up vomiting blood. Patient came by EMS, they colored him. Patient is adamant that he did not fall or hit his head. Of note, patient was seen here a few hours ago for alcohol intoxication and chronic left shoulder pain.. Patient denies black or bloody stools. Patient denies any abdominal pain. Patient admits that he drinks alcohol daily. Related Data Previous Rx's Medication Instructions Recorded folic acid 1 mg tablet 1 mg PO DAILY #30 tabs 09/07/23 furosemide 20 mg tablet 20 mg PO BID@0900,1800 #60 tabs 09/07/23 lactulose 20 gram/30 mL oral 40 g (60 mL) PO TID #2,700 mL 09/07/23 solution magnesium oxide 400 mg (241.3 mg 400 mg PO BIDPC #60 tabs 09/07/23 magnesium) tablet omeprazole 40 mg capsule,delayed 40 mg PO DAILY@0630 #30 caps 09/07/23 release rifaximin 550 mg tablet (Xifaxan) 550 mg PO BID #60 tabs 09/07/23 spironolactone 25 mg tablet 12.5 mg PO BID@0900,1800 #30 tabs 09/07/23 sucralfate 1 gram tablet 1 g PO BIDAC #60 tabs 09/07/23 thiamine mononitrate (vit B1) 100 100 mg PO DAILY #30 tabs 09/07/23 mg tablet Allergies Allergy/AdvReac Type Severity Reaction Status Date / Time No Known Allergies Allergy Verified 01/22/24 00:13 [No Known Allergies*] Review of Systems Review of Systems: Constitutional : No Weight loss, No Fever, No Chills, No Night Sweats, No Fatigue, No Malaise ENT/Mouth : No Hearing loss, No Ear Pain, No Nasal Congestion, No Sinus Pain, No Hoarseness, No sore throat, No Rhinorrhea, No Swallowing Difficulty Eyes: No Eye Pain, No Swelling, No Redness, No Foreign Body, No Discharge, No Vision Changes Cardiovascular : No Chest Pain, No SOB, No Dyspnea on Exertion, No Orthopnea, No Edema, No Palpitations Respiratory : No Cough, No Sputum, No Wheezing, No Smoke Exposure, No Dyspnea Gastrointestinal : Complaining of vomiting blood No Diarrhea, No Constipation, No abdominal Pain, No Hematochezia, No Melena Genitourinary : no irregular bleeding, No Dysuria, No Urinary Frequency, No Hematuria, No Urinary Incontinence, No Urgency, No Flank Pain, No Urinary Flow Changes, No Hesitancy Musculoskeletal : No joint pain, No Myalgias, No Joint Swelling Skin : No Skin Lesions, No rash Neuro : No Weakness, No Numbness, No Paresthesias, No Loss of Consciousness, No Dizziness, No Headache Psych : No Anxiety/Panic, No Depression, No SI/HI/AH/VH, No Social Issues, Heme/Lymph: No Bruising, No Bleeding,No Lymphadenopathy Endocrine : No Polyuria, No Polydipsia, No Temperature Intolerance [facility], [facility] Past Medical History Medical History Alcohol withdrawal syndrome Cirrhosis Malnutrition CHF (congestive heart failure) Anemia Aspiration pneumonia Pneumonia Hypomagnesemia Thrombocytopenia Alcoholic liver disease Acute on chronic anemia CHF (congestive heart failure) Anemia Alcohol abuse Surgical History No history of previous surgery Social History Social History Household Members: Other Household Members Other:: pt homeless Housing: Homeless Housing Other:: homeless Do you presently have visiting nurse or other home services: No Alcohol intake: current Alcohol intake frequency: 3 or more drinks per day Alcohol type: beer, wine and hard liquor Comment: 1:1 sitter. Patient Tobacco Use Status: Former Tobacco user Quit Date: 12 years ago Tobacco use type: Cigarette Smoked in Last 30 Days: No Second Hand Smoke Exposure: No Use of substances other than those prescribed or required for medical reasons: No Advance Directives: Yes Advance Directives on File: Yes Advance Directives Date on File: 07/13/23 service: No Physical Exam ED Vital Signs: Vital Signs - 24 hr 01/22/24 00:13 Temperature 97.5 F Pulse Rate 78 Respiratory Rate 18 Blood Pressure 120/58 L Pulse Oximetry 97 Oxygen Delivery Method Room Air BMI result Body Mass Index 19.4 Const Other: Appearance: Alert. Oriented X3. No acute distress. Eyes: Pupils equal, round and reactive to light. ENT: Pharynx normal. Patient has dry blood in his mouth and lips, no obvious injury. Neck: Normal inspection. Neck supple. No lymph nodes noted. No crepitus CVS: Normal heart rate and rhythm. Pulses normal. Normal S1 and S2 Respiratory: No respiratory distress. Breath sounds normal. No Wheezing. No rales Abdomen: Soft and nontender. No rigidity. No distention. Skin: Skin warm and dry. Normal skin color. Normal skin turgor. Extremities: No lower extremity edema. No Lacerations. No Rash Neuro: Oriented X 3. No motor deficit. No sensory deficit. Moving all extremities. No slurred speech. CN 2 through 12 grossly intact Psych: calm, cooperative, normal affect Course Course Course Narrative: -patient declined digital rectal exam. -patient grudgingly agreed to lab work. Patient had lab work done a few hours ago, but patient was not complaining of hematemesis. -patient has dry blood around his mouth, is slightly that he is in fact vomiting blood. -I reviewed patient's labs, patient does have history of esophageal varices. -patient's vitals are stable, no signs of hypotension. Patient has not been vomiting here in the ED. -patient receiving IV fluids, octreotide, ondansetron, pantoprazole Medical Decision Making Medical Decision Making MDM Narrative: -my interpretation of labs: Patient's hemoglobin did drop from 9.3-8.5 in less than 12 hours. Chemistries at baseline, albumin slightly decreased, lipase normal, magnesium normal, ETOH 291 -as mentioned above, patient declined digital rectal exam/guaiac test. -overall, it is likely that patient has hematemesis secondary to alcohol intake causing gastritis, ulcers versus esophageal varices bleed -patient needs to be admitted. Patient has been accepted by Dr. Duarte from the hospitalist team. However, patient is known to I agree to lab work and medications but suddenly change his mind and refuses medications, blood work, IV insertion and known to leave against medical advice -patient is not suicidal or homicidal, patient is not on a Section 12. Differential Diagnosis Differential Diagnoses: The differential diagnosis associated with the presentation includes (Alcohol intoxication, variceal bleed, alcoholic gastritis) Admission/Observation Consideration of admission/observation: Escalation of care including admission/observation considered (Patient will likely need admission. However, patient is known to refused admission, lab work pending) Consult Healthcare Provider Management of the patient was discussed with: Hospitalist Lab Data MDM Lab Attestation statement: I reviewed the patient's lab results. 01/22/24 02:01 01/22/24 02:01 Labs: Lab Results 01/22/24 Range/Units 02:01 WBC 3.1 L (4.8-10.8) X10*3/uL RBC 2.70 L (4.60-5.80) X10*6/uL Hgb 8.5 L (14.0-18.0) g/dl Hct 25.2 L (42.0-52.0) % MCV 93.3 (80.0-98.0) fL MCH 31.5 (27.0-33.0) pg MCHC 33.7 (31.0-36.0) g/dl RDW 13.2 (11.0-16.0) % Plt Count 46 L (160-400) X10*3/uL MPV 11.8 (9.4-12.4) fL Immature Gran % (Auto) 0.3 (0.0-0.4) % Neut % (Auto) 51.3 (45-73) % Lymph % (Auto) 32.5 (20-40) % Day % (Auto) 11.8 H (2-11) % Eos % (Auto) 3.5 (0-4) % Baso % (Auto) 0.6 (0-2) % Lymph # (Auto) 1.0 L (1.2-4.9) X10*3/uL Day # (Auto) 0.4 (0.1-1.2) X10*3/uL Eos # (Auto) 0.1 (0.0-0.4) X10*3/uL Baso # (Auto) 0.0 (0.0-0.2) X10*3/uL Abs Immat Gran (auto) 0.01 (0.00-0.03) X10*3/uL Absolute Neuts (auto) 1.6 L (2.0-8.3) x10*3/uL Absolute Nucleated RBC 0.000 (0.0-0.012) X10*3/uL Nucleated RBC % (auto) 0.0 (0.0-0.2) /100WBC PT 15.3 H (11.1-13.3) SEC INR 1.3 H (0.9-1.1) APTT 35.9 (26.0-36.8) SEC Sodium 145 (135-145) mmol/L Potassium 3.4 (3.3-5.1) mmol/L Chloride 114 H (96-108) mmol/L Carbon Dioxide 22 (22-29) mmol/L Anion Gap 12 (12-20) BUN 9 (9-16) mg/dL Creatinine 0.64 (0.5-1.4) mg/dL Estim Creat Clear Calc 101.5 Estimated GFR > 60 Random Glucose 100 (60-115) mg/dL Calcium 8.7 (8.4-10.2) mg/dL Magnesium 1.7 (1.6-2.6) mg/dL Total Bilirubin 0.5 (0.0-1.0) mg/dL Direct Bilirubin 0.3 (0.0-0.5) mg/dL AST 43 H (5-37) U/L ALT 16 (0-40) U/L Alkaline Phosphatase 131 H (39-117) U/L Total Protein 6.5 (6.5-8.0) g/dL Albumin 3.1 L (3.5-5.0) g/dL Lipase 22 (8-78) U/L Ethyl Alcohol 291 mg/dL Independent Historian Clinical information obtained from an independent historian. History obtained from or confirmed by: Other (Alcohol abuse) Critical Care Time Critical Care Time Critical Care Time: Yes Total Critical Care Time: 75 Attestation: I have personally provided critical care time. Time includes review of lab data, radiology results, discussion with consultants, and monitoring for potential decompensation. Intervention performed as documented. Discharge Plan Discharge Clinical Impression: Alcohol intoxication, Hematemesis Patient Disposition: Admitted As Inpatient Prescriptions: No Action sucralfate 1 gram Tablet 1 g PO BIDAC Qty: 60 0RF omeprazole 40 mg Capsule,Delayed Release(Dr/Ec) 40 mg PO DAILY@0630 Qty: 30 0RF spironolactone 25 mg Tablet 12.5 mg PO BID@0900,1800 Qty: 30 0RF Protocol: Hold for SBP< HOLD for SBP < : 90 magnesium oxide 400 mg (241.3 mg magnesium) Tablet 400 mg PO BIDPC Qty: 60 0RF folic acid 1 mg Tablet 1 mg PO DAILY Qty: 30 0RF furosemide 20 mg Tablet 20 mg PO BID@0900,1800 Qty: 60 0RF Protocol: Hold for SBP< HOLD for SBP < : 90 Xifaxan 550 mg Tablet 550 mg PO BID Qty: 60 0RF thiamine mononitrate (vit B1) 100 mg Tablet 100 mg PO DAILY Qty: 30 0RF lactulose 20 gram/30 mL Solution 40 g PO TID Qty: 2700 0RF
--- NOTE | 2024-01-22 01:02 | PC.NURSE ---
PT refused rectal exam, that's out of my jurisdiction .
[2024-01-22 02:06] LABS: MANUAL DIFF FLAG NO
[2024-01-22 02:08] LABS: Basophils Percent Auto 0.6 % (0-2); Eosinophils Absolute Auto 0.1 X10*3/uL (0.0-0.4); Eosinophils Percent Auto 3.5 % (0-4); Hematocrit 25.2 % (42.0-52.0); Hemoglobin 8.5 g/dl (14.0-18.0); Imm Gran Abs Auto 0.01 X10*3/uL (0.00-0.03); Imm Gran Pct Auto 0.3 % (0.0-0.4); Lymphocytes Percent Auto 32.5 % (20-40); Mean Corpuscular HGB Conc 33.7 g/dl (31.0-36.0); Mean Corpuscular Hemoglobin 31.5 pg (27.0-33.0); Mean Corpuscular Volume 93.3 fL (80.0-98.0); Mean Platelet Volume 11.8 fL (9.4-12.4); Monocytes Absolute Auto 0.4 X10*3/uL (0.1-1.2); Monocytes Percent Auto 11.8 % (2-11); Neutrophils Absolute Auto 1.6 x10*3/uL (2.0-8.3); Neutrophils Percent Auto 51.3 % (45-73); Red Cell Distribution Width 13.2 % (11.0-16.0); White Blood Count 3.1 X10*3/uL (4.8-10.8)
[2024-01-22 02:09] LABS: Platelet Count 46 X10*3/uL (160-400)
[2024-01-22 02:13] LABS: INTERNATIONAL NORM RATIO 1.3 (0.9-1.1); Prothrombin Time 15.3 SEC (11.1-13.3)
[2024-01-22 02:16] LABS: Partial Thromboplastin Time 35.9 SEC (26.0-36.8)
[2024-01-22 02:23] LABS: Alanine Aminotransferase 16 U/L (0-40); Albumin Level 3.1 g/dL (3.5-5.0); Alkaline Phosphatase 131 U/L (39-117); Anion Gap 12 (12-20); Aspartate Amino Transferase 43 U/L (5-37); Bilirubin Direct 0.3 mg/dL (0.0-0.5); Bilirubin Total 0.5 mg/dL (0.0-1.0); Blood Urea Nitrogen 9 mg/dL (9-16); Calcium 8.7 mg/dL (8.4-10.2); Carbon Dioxide 22 mmol/L (22-29); Chloride 114 mmol/L (96-108); Creatinine Clr Calc Pharmacy 101.5; Estimated Glomerular Filt Rate > 60; Ethanol 291 mg/dL; Glucose Random 100 mg/dL (60-115); Lipase 22 U/L (8-78); Magnesium 1.7 mg/dL (1.6-2.6); Potassium 3.4 mmol/L (3.3-5.1); Sodium 145 mmol/L (135-145); Total Protein 6.5 g/dL (6.5-8.0)
[2024-01-22] MEDS: Octreotide Acetate 100 MCG/ML AMPUL 50 MCG IVPUSH (02:58)
[2024-01-22] MEDS: ondansetron HCL 4 MG/2 ML VIAL IVPUSH (02:59)
[2024-01-22] MEDS: Pantoprazole Sodium 40 MG/10 ML VIAL 80 MG IVPUSH (02:59)
[2024-01-22] MEDS: Octreotide Acetate 500 MCG in 0.9 % Sodium Chloride 500 ML 25.05 MCG IVCONT ×2 (03:18→22:59)
[2024-01-22] MEDS: 0.9 % Sodium Chloride 1,000 ML 999 ML IVCONT (03:19)
--- NOTE | 2024-01-22 03:25 | PC.NURSE ---
Dr. Gerald Mayo at the bedside
--- NOTE | 2024-01-22 03:38 | P.HPHOSP_ITS ---
History of Present Illness Date of Service: 01/22/24 Attending physician on admission: Lico Mayo Chief Complaint: vomiting blood Charbel Delgado is a 53 years old man with past medical history significant for alcoholic liver cirrhosis, esophageal varices and ongoing alcohol abuse presents to the emergency department complaining of bloody vomiting (bright red blood) over the last few days especially in the mornings. He denies any associated abdominal pain or diarrhea. Did not report black stools. Last alcoholic beverage was before coming to the emergency department. He did not report any headache, dizziness, chest pain or shortness on breath. He denied tobacco smoking or illicit drug use. In the ED, he was found to have stable vital signs. Last blood pressure is 120/58. There is no tachycardia. Oxygen saturation is normal on room air. CBC was obtained x2. Hemoglobin dropped from 9.3 to 8.5 over 10 hours). There is thrombocytopenia and neutropenia which around baseline. Creatinine and BUN are normal. AST is elevated as well as alk-phos. Bilirubin and ALT are normal. Ethanol level level is 291. ED tx: NS 1 L bolus, Protonix 80 mg IV, octreotide infusion, Zofran 4 mg IV. Review of Systems 2 Review of Systems: All 12 systems were reviewed and normal except as noted in HPI. [facility] Medical History Alcohol withdrawal syndrome Cirrhosis Malnutrition CHF (congestive heart failure) Anemia Aspiration pneumonia Pneumonia Hypomagnesemia Thrombocytopenia Alcoholic liver disease Acute on chronic anemia CHF (congestive heart failure) Anemia Alcohol abuse Surgical History No history of previous surgery Social History Household Members: Other Household Members Other:: pt homeless Housing: Homeless Housing Other:: homeless Do you presently have visiting nurse or other home services: No Alcohol intake: current Alcohol intake frequency: 3 or more drinks per day Alcohol type: beer, wine and hard liquor Comment: 1:1 sitter. Patient Tobacco Use Status: Former Tobacco user Quit Date: 12 years ago Tobacco use type: Cigarette Smoked in Last 30 Days: No Second Hand Smoke Exposure: No Use of substances other than those prescribed or required for medical reasons: No Advance Directives: Yes Advance Directives on File: Yes Advance Directives Date on File: 07/13/23 service: No Meds Allergies Allergy/AdvReac Type Severity Reaction Status Date / Time No Known Allergies Allergy Verified 01/22/24 00:13 [No Known Allergies*] Active Medications: Current Medications Octreotide Acetate 500 mcg/ (Sodium Chloride) 501 mls @ 25.05 mls/hr IVCONT .Q20H JOSE [facility]UEL Last Admin: 01/22/24 03:18 Dose: 25 mcg/hr, 25.05 mls/hr Sodium Chloride (Ns) 1,000 mls @ 100 mls/hr IVCONT .Q10H [facility]SE [facility]UEL Thiamine HCl 100 mg/ Sodium (Chloride) 101 mls @ 202 mls/hr IV DAILY [facility]SE [facility]EL Pantoprazole Sodium (Pantoprazole Sodium 40 Mg/10 Ml Vial) 40 mg IVPUSH BID JOSE MANUEL Sodium Chloride (0.9 % Sodium Chloride Flush 3 Ml Syringe) 3 ml IVFLUSH QSHIFT JOSE MANUEL Physical Exam 2 Vital Signs and Narrative: Vital Signs: Last Vital Signs Temp 97.5 F 01/22/24 00:13 Pulse 78 01/22/24 00:13 Resp 18 01/22/24 00:13 BP 120/58 L 01/22/24 00:13 Pulse Ox 97 01/22/24 00:13 O2 Del Method Room Air 01/22/24 00:13 BMI result Body Mass Index 19.4 Constitutional - Awake and Alert, No apparent distress. Patient looks intoxicated. Alcohol breath. HEENT - dried blood noted on lips. Normal sclerae. Heart - S1S2, RRR. Lungs - Normal lung expansion, Normal respiratory effort, No respiratory distress, CTA bilaterally Abdomen - NT / ND; +BS; No rebound or guarding Extremities - no calf tenderness bilaterally, no swelling Musculoskeletal - Normal inspection, normal ROM Skin - Warm/Dry Neurological - Alert & oriented x3. No gross focal weakness. Dysarthric speech (patient is currently intoxicated). Psychological - Appropriate affect Results Labs 01/22/24 02:01 01/22/24 02:01 Labs: Laboratory Results - last 24 hr 01/22/24 02:01 MCV 93.3 MCH 31.5 MCHC 33.7 RDW 13.2 Plt Count 46 L MPV 11.8 Immature Gran % (Auto) 0.3 Neut % (Auto) 51.3 Lymph % (Auto) 32.5 [place] % (Auto) 11.8 H Eos % (Auto) 3.5 Baso % (Auto) 0.6 Lymph # (Auto) 1.0 L [place] # (Auto) 0.4 Eos # (Auto) 0.1 Baso # (Auto) 0.0 Abs Immat Gran (auto) 0.01 Absolute Neuts (auto) 1.6 L Absolute Nucleated RBC 0.000 Nucleated RBC % (auto) 0.0 PT 15.3 H INR 1.3 H APTT 35.9 Anion Gap 12 Estim Creat Clear Calc 101.5 Estimated GFR > 60 Random Glucose 100 Calcium 8.7 Magnesium 1.7 Total Bilirubin 0.5 Direct Bilirubin 0.3 AST 43 H ALT 16 Alkaline Phosphatase 131 H Total Protein 6.5 Albumin 3.1 L Lipase 22 Ethyl Alcohol 291 Assessment and Plan (1) Hematemesis: Qualifiers: Nausea presence: without nausea Qualified Code(s): K92.0 - Hematemesis Status: Acute (2) Alcohol intoxication: Qualifiers: Complication of substance-induced condition: with unspecified complication Qualified Code(s): F10.929 - Alcohol use, unspecified with intoxication, unspecified Status: Acute (3) Acute blood loss anemia: Status: Acute (4) Cirrhosis: Qualifiers: Hepatic cirrhosis type: alcoholic cirrhosis Ascites presence: without ascites Qualified Code(s): K70.30 - Alcoholic cirrhosis of liver without ascites Status: Acute (5) Thrombocytopenia: Status: Acute Plan Charbel Delgado is a 53 years old man with past medical history significant for alcoholic liver cirrhosis admitted with * Hematemesis last secondary to esophageal bleeding causing acute blood loss anemia. Differential diagnosis: PUD, severe esophagitis, severe gastritis. Admit to hospitalist service. NPO. Telemetry. Continue to monitor H&H. Transfuse PRBCs if Hgb < 7 or patient becomes hemodynamically unstable. Continue treatment with octreotide infusion and Protonix 40 mg IV twice daily. Patient advised to abstain from alcohol consumption. GI consult. * Pancytopenia secondary to liver disease. WBCs and platelets are at baseline. Continue to monitor. If thrombocytopenia worsens and/or patient persists with ongoing GI bleeding, we will consider platelet transfusion. * Elevated INR secondary to liver disease. Vitamin K. If worsen and ongoing GI bleeding to consider for frozen plasma. Continue her * Elevated LFTs secondary to alcohol abuse. Continue to monitor. * Alcohol intoxication. Patient was advised to abstain from alcohol consumption. WA protocol. Thiamine IV. Folic acid, multivitamins and magnesium when able. * HFpEF. No acute symptoms reported. DVT prophylaxis: SCDs Code status: Full Patient will need hospitalization for at least 2 midnight for upper GI bleeding treatment with close vital sign and blood work monitoring, Protonix + octreotide effusions, IV fluids and PRBC transfusion as needed as well as evaluation by subspecialty. Quality Stroke Does the patient have a stroke diagnosis?: No VTE Prior VTE?: No VTE Risk Level:: Medical - moderate - high VTE Device Contraindication: N/A - Device Ordered VTE Drug Contraindication: Treatment Not Indicated
[2024-01-22 04:04] LABS: Amphetamine Screen Urine Not Detected (Not Detect); Barbiturates, Urine Not Detected (Not Detect); Benzodiazepines Screen Urine Not Detected (Not Detect); Cannabinoid Screen Urine Not Detected (Not Detect); Cocaine Screen Urine Not Detected (Not Detect); Fentanyl, urine Not Detected (Not Detect); Opiate Screen Urine Not Detected (Not Detect); Phencyclidine Screen Urine Not Detected (Not Detect)
[2024-01-22] MEDS: Phytonadione (Vit K1) 2.5 MG in 0.9 % Sodium Chloride 50 ML 50.25 MG IV (04:37)
[2024-01-22] MEDS: 0.9 % Sodium Chloride 1,000 ML 100 ML IVCONT (04:43)
[2024-01-22] MEDS: Thiamine HCL 100 MG in 0.9 % Sodium Chloride 100 ML 202 MG IV (04:55)
[2024-01-22 05:22] LABS: Hematocrit 25.6 % (42.0-52.0); Hemoglobin 8.3 g/dl (14.0-18.0); Mean Corpuscular HGB Conc 32.4 g/dl (31.0-36.0); Mean Corpuscular Hemoglobin 30.9 pg (27.0-33.0); Mean Corpuscular Volume 95.2 fL (80.0-98.0); Mean Platelet Volume 11.8 fL (9.4-12.4); Red Blood Count 2.69 X10*6/uL (4.60-5.80); Red Cell Distribution Width 13.1 % (11.0-16.0)
[2024-01-22 05:24] LABS: Platelet Count 40 X10*3/uL (160-400)
[2024-01-22 05:42] LABS: Alanine Aminotransferase 14 U/L (0-40); Albumin Level 3.1 g/dL (3.5-5.0); Alkaline Phosphatase 125 U/L (39-117); Anion Gap 13 (12-20); Aspartate Amino Transferase 40 U/L (5-37); Bilirubin Total 0.5 mg/dL (0.0-1.0); Blood Urea Nitrogen 8 mg/dL (9-16); Calcium 8.3 mg/dL (8.4-10.2); Carbon Dioxide 21 mmol/L (22-29); Chloride 116 mmol/L (96-108); Creatinine Clr Calc Pharmacy 104.8; Estimated Glomerular Filt Rate > 60; Glucose Random 45 mg/dL (60-115); Magnesium 1.7 mg/dL (1.6-2.6); Potassium 3.5 mmol/L (3.3-5.1); Sodium 146 mmol/L (135-145); Total Protein 6.3 g/dL (6.5-8.0)
[2024-01-22] MEDS: Dextrose 50 % 25 GM/50 ML SYRINGE IVPUSH (05:50)
[2024-01-22] MEDS: Dextrose 5 % and 0.9 % NaCl 1,000 ML 100 ML IVCONT ×2 (05:57→15:56)
[2024-01-22 06:09] LABS: Glucose, Whole Blood 113 mg/dL (60-115)
--- NOTE | 2024-01-22 06:39 | PC.NURSE ---
PT at 88% on RA, pt put on 2L O2 via nasal cannual, Dr. Hamilton made aware via [employer].
[2024-01-22 06:54] LABS: Glucose, Whole Blood 113 mg/dL (60-115)
--- NOTE | 2024-01-22 08:09 | PHA.MEDREC ---
Pharmacy Consult ? Medication Reconciliation Pharmacy has completed the medication reconciliation with patient. Pt states he is homeless and does not take anything. He reports previously taking advil but hasn't taken it recently.
[2024-01-22] MEDS: Pantoprazole Sodium 80 MG in 0.9 % Sodium Chloride 80 ML 10 MG IV ×2 (08:19→17:16)
--- NOTE | 2024-01-22 08:43 | PM.EVENT ---
Event Note Date of Service: 01/22/24 Event Note: Patient is a 53 Y M with alcohol misuse c/b cirrhosis, esophageal varices, presenting?initially to ED on 01/20 w/ hematemesis, admitted medicine; ICU consulted for hypotension, though otherwise remains clinically stable, without additional stigmata of hemorrhage; given such, recommendations include albumin, platelets, ideally maintaining platelet >50 in setting of GI bleed, calcium; ICU available for any additional questions, concerns, or clinical change Time Spent With Patient Time: Total time managing care of this patient today ____ minutes.
--- NOTE | 2024-01-22 09:11 | PC.NURSE ---
rn took report at this time from ang corona. spoke w blood bank to confirm are readying unit ordered. spoke shantell schmid in phlebotomy to confirm are coming to collect T&S ordered.
[2024-01-22 09:52] LABS: Hematocrit 25.9 % (42.0-52.0); Mean Corpuscular HGB Conc 32.8 g/dl (31.0-36.0); Mean Corpuscular Hemoglobin 31.1 pg (27.0-33.0); Mean Corpuscular Volume 94.9 fL (80.0-98.0); Mean Platelet Volume 11.9 fL (9.4-12.4); Red Blood Count 2.73 X10*6/uL (4.60-5.80); Red Cell Distribution Width 13.2 % (11.0-16.0)
[2024-01-22 10:00] LABS: Platelet Count 41 X10*3/uL (160-400)
[2024-01-22 10:01] LABS: Hemoglobin 8.5 g/dl (14.0-18.0)
--- NOTE | 2024-01-22 10:17 | PC.NURSE ---
md salamanca notified pt ciwa 3, inquired if want phenobarb to be ordered.
[2024-01-22 10:19] LABS: White Blood Count 1.9 X10*3/uL (4.8-10.8)
--- NOTE | 2024-01-22 10:23 | PC.NURSE ---
unable to call blood bank at this time for PLT, no consent in chart for bl products. md salamanca notified- states will come to ed to do consent. md salamanca aware holding transfusion(s). 3rd iv placed to prepare for PLTs and also to hang next iv med due.
[2024-01-22] MEDS: Calcium Gluconate/NaCl,Iso-Osm 1 GM/50 ML PLAST..BAG IV (10:35)
[2024-01-22] MEDS: Albumin Human 25 % 100 ML IV ×3 (10:52→21:31)
--- NOTE | 2024-01-22 10:58 | PC.NURSE ---
inquired w md salamanca- 2 orders for plt's, only 1 needed. md velasco still needs consent
[2024-01-22 11:13] LABS: Glucose, Whole Blood 106 mg/dL (60-115)
--- NOTE | 2024-01-22 12:12 | PC.NURSE ---
spoke w blood bank as tech is awaiting unit- asked rn to contact md salamanca prior to releasing unit to check if needs irradiated- md salamanca states not required to be irradiated. confirmed ok to receive.
--- NOTE | 2024-01-22 12:14 | PC.NURSE ---
spoke w md salamanca- in order to give plt's and continue other ordered iv drips need to place 4th iv line. rn to place.
[2024-01-22] MEDS: PHENobarbitaL sodium 65 MG/ML VIAL 175 MG IM (12:35)
[2024-01-22 14:26] LABS: Glucose, Whole Blood 117 mg/dL (60-115)
--- NOTE | 2024-01-22 14:30 | PM.GICN ---
History of Present Illness Data of Consult Service Date: 01/22/24 Requesting physician: Astrid Hines Primary Care Provider: Unknown Physician HPI Reason for consult: anemia 53 years old man with past medical history significant for alcoholic liver cirrhosis, esophageal varices and ongoing alcohol abuse who I am seeing for anemia, PAtient denies any complaints and has no idea why he is here. Per ED note he had bright red bloody emesis. He drinks beer daily and is homeless, and is not taking any regular medications. Denies abdominal pain or diarrhea. Did not report black stools. He did have nose bleed few days ago in ED. Denies headache, dizziness, chest pain or shortness on breath. HGB has been stable since been in hospital at 8.5 g/dl Last EGD 08/30/23 with banding of a bleeding area that had just been banded shortly before this Review of Systems Review of Systems: Constitutional : No Weight loss, No Fever, No Chills ENT/Mouth : No sore throat, No Rhinorrhea Eyes: No Swelling, No Redness Cardiovascular : No Chest Pain, No SOB, No Edema Respiratory : No Cough, No Sputum, No Wheezing Gastrointestinal : see HPI Genitourinary : NO Dysuria, No Urinary Frequency, No Hematuria, No Urgency Musculoskeletal : + joint pain, No Myalgias, No Joint Swelling Skin : No Skin Lesions, No rash Neuro : No Weakness, No Numbness, No Dizziness, No Headache Psych : No Anxiety/Panic, No Depression Heme/Lymph: No Bruising, No Lymphadenopathy Endocrine : No Polyuria, No Polydipsia All other systems reviewed and are negative. [facility] Past Medical History Medical History Alcohol withdrawal syndrome Cirrhosis Malnutrition CHF (congestive heart failure) Anemia Aspiration pneumonia Pneumonia Hypomagnesemia Thrombocytopenia Alcoholic liver disease Acute on chronic anemia CHF (congestive heart failure) Anemia Alcohol abuse Family History Pertinent family history: denies FH of cirrhosis Surgical History Surgical History No history of previous surgery Social History Social History Household Members: Other Household Members Other:: pt homeless Housing: Homeless Housing Other:: homeless Do you presently have visiting nurse or other home services: No Alcohol intake: current Alcohol intake frequency: 3 or more drinks per day Alcohol type: beer, wine and hard liquor Comment: 1:1 sitter. Patient Tobacco Use Status: Former Tobacco user Quit Date: 12 years ago Tobacco use type: Cigarette Smoked in Last 30 Days: No Second Hand Smoke Exposure: No Use of substances other than those prescribed or required for medical reasons: No Advance Directives: Yes Advance Directives on File: Yes Advance Directives Date on File: 07/13/23 service: No Meds Allergies Allergy/AdvReac Type Severity Reaction Status Date / Time No Known Allergies Allergy Verified 01/22/24 00:13 [No Known Allergies*] Active Medications: Current Medications Dextrose (Dextrose 50 % 25 Gm/50 Ml Syringe) 25 gm IVPUSH Q15M PRN; Protocol PRN Reason: per Hypoglycemia Standing Ord. Glucose (Glucose Gel 15 Gm Gel..Gram.) 15 gm PO Q15M PRN; Protocol PRN Reason: per Hypoglycemia Standing Ord. Octreotide Acetate 500 mcg/ (Sodium Chloride) 501 mls @ 25.05 mls/hr IVCONT .Q20H [facility] Last Admin: 01/22/24 03:18 Dose: 25 mcg/hr, 25.05 mls/hr Thiamine HCl 100 mg/ Sodium (Chloride) 101 mls @ 202 mls/hr IV DAILY [facility] Last Infusion: 01/22/24 05:28 Dose: Infused Dextrose/Sodium Chloride (D5ns) 1,000 mls @ 100 mls/hr IVCONT .Q10H [facility] Last Admin: 01/22/24 05:57 Dose: 100 mls/hr Pantoprazole Sodium 80 mg/ (Sodium Chloride) 100 mls @ 10 mls/hr IV .Q10H [facility] Last Admin: 01/22/24 08:19 Dose: 8 mg/hr, 10 mls/hr Albumin Human (Kedbumin 25 %) 100 mls @ 100 mls/hr IV Q6H [facility] Stop: 01/23/24 03:44 Last Infusion: 01/22/24 11:53 Dose: Infused Pharmacy Consult (Consult Rx Etoh Phenob Im/Po) 1 each MISCELLANE ONCE PRN; Protocol PRN Reason: Consult order Phenobarbital (Phenobarbital 15 Mg Tablet) 45 mg PO BID JOSE [facility]UEL; Protocol Stop: 01/24/24 21:01 Phenobarbital (Phenobarbital 15 Mg Tablet) 15 mg PO BID JOSE MANUEL; Protocol Stop: 01/26/24 21:01 Phenobarbital (Phenobarbital 15 Mg Tablet) 15 mg PO DAILY [facility]; Protocol Stop: 01/28/24 09:01 Phenobarbital Sodium (Phenobarbital Sodium 65 Mg/Ml Vial Q3hx2) 130 mg IM Q3H [facility]; Protocol Stop: 01/22/24 18:01 Sodium Chloride (0.9 % Sodium Chloride Flush 3 Ml Syringe) 3 ml IVFLUSH QSHIFT [facility] Last Admin: 01/22/24 09:55 Dose: Not Given Physical Exam Vital Signs: Vital Signs: Last Vital Signs Temp 98.7 F 01/22/24 13:37 Pulse 72 01/22/24 13:37 Resp 18 01/22/24 13:37 BP 107/60 01/22/24 13:37 Pulse Ox 97 01/22/24 13:52 O2 Del Method Room Air 01/22/24 13:52 O2 Flow Rate 2 01/22/24 10:00 BMI result Body Mass Index 19.4 EXAM: GENERAL: The patient is dishevelled VITAL SIGNS:see workflow HEENT: Nonicteric sclerae, PERRLA, EOMI. Oropharynx clear. Moist mucous membranes. Conjunctivae appear well perfused. No thyroid mass. CHEST: Chest wall is nontender. HEART: Regular rate and rhythm without murmurs. LUNGS: Clear to auscultation bilaterally. ABDOMEN: Soft, positive bowel sounds, nontender, no organomegaly.no flank tenderness SKIN: No rash, no excessive bruising, petechiae, or purpura. NEUROLOGIC: Cranial nerves II-XII intact without motor/sensory deficit. Psych: normal affect Results Labs 01/22/24 09:27 01/22/24 04:57 Labs: Short CBC 01/22/24 01/22/24 01/22/24 Range/Units 02:01 04:57 09:27 WBC 3.1 L 3.0 L 1.9 L (4.8-10.8) X10*3/uL Hgb 8.5 L 8.3 L 8.5 L (14.0-18.0) g/dl Hct 25.2 L 25.6 L 25.9 L (42.0-52.0) % Plt Count 46 L 40 L 41 L (160-400) X10*3/uL BMP 01/22/24 01/22/24 02:01 04:57 Sodium 145 146 H Potassium 3.4 3.5 Chloride 114 H 116 H Carbon Dioxide 22 21 L BUN 9 8 L Creatinine 0.64 0.62 Calcium 8.7 8.3 L Liver Function 01/22/24 01/22/24 Range/Units 02:01 04:57 Total Bilirubin 0.5 0.5 (0.0-1.0) mg/dL Direct Bilirubin 0.3 (0.0-0.5) mg/dL AST 43 H 40 H (5-37) U/L ALT 16 14 (0-40) U/L Alkaline Phosphatase 131 H 125 H (39-117) U/L Albumin 3.1 L 3.1 L (3.5-5.0) g/dL Assessment and Plan (1) Hematemesis: Qualifiers: Nausea presence: without nausea Qualified Code(s): K92.0 - Hematemesis Status: Acute (2) Esophageal varices: Status: Acute Plan 1/ Poor historian, concern for Upper GIB vs nasal source, does have hx of varices per last EGD which required banding. Also continues to drink alcohol PLAN: 1/ COnt with PPI and octreotide, can allow clears 2/ Monitor CBC hgb q8h, if HGB<7 can transfuse aiming for hgb 9 g/dl 3/ hold on Abx for the moment 4/ vitamins and alcohol withdrawal protocol Procedures Date of Service Date of Service: 01/22/24
--- NOTE | 2024-01-22 15:05 | PC.NURSE ---
md salamanca texted again to d/c 2nd unit plt order as not needed per md salamanca
--- NOTE | 2024-01-22 15:45 | PC.NURSE ---
pharmacy was made aware no more albumin in pyxis.
[2024-01-22] MEDS: PHENobarbitaL sodium 65 MG/ML VIAL Q3Hx2 130 MG IM ×2 (15:56→18:38)
--- NOTE | 2024-01-22 16:35 | PM.EVENT ---
Event Note Date of Service: 01/22/24 Event Note: This patient is seen and examined by the hospitalist team this morning Seen and examined again Lab reviewed and h/h repeated: h/h 8.5 ,platelet 41,inr 1.3 Physical exam : Unchanged from H&P. assessment and plan coordinated. Agree with the plan in addition: possible upper Gi bleed :(lastaadmission in 09/04 -alsoGi bleed has egd - had variceal bleedinga nd banding/hemospray) since admission has 1 episode of small emesis ( very little bleed) h/h around 8.5,added 1 platelet unit d/w Gi-monitor CBC, continue PPI, octreotide drip, placed another order for CBC, PT INR in this evening. Thiamine, folic acid,ivf . Alcohol withdrawals: Started on phenobarb protocol CIWA scale. ICU also evaluated the patient-recommended to continue above management and currently not ICU level of care, please see ICU event note. Above was explained to the patient, also tried to call patient's healthcare proxy and message left. Time Spent With Patient Time: Total time managing care of this patient today ____ minutes.
--- NOTE | 2024-01-22 17:34 | PC.NURSE ---
spoke w pharm- requested folic acid, not in pyxis
[2024-01-22] MEDS: Folic Acid 1 MG in 0.9 % Sodium Chloride 50 ML 100.4 MG IV (18:03)
[2024-01-22 18:23] LABS: Glucose, Whole Blood 232 mg/dL (60-115)
[2024-01-22 19:13] LABS: Hematocrit 25.5 % (42.0-52.0); Hemoglobin 8.4 g/dl (14.0-18.0); Mean Corpuscular HGB Conc 32.9 g/dl (31.0-36.0); Mean Corpuscular Hemoglobin 31.6 pg (27.0-33.0); Mean Corpuscular Volume 95.9 fL (80.0-98.0); Mean Platelet Volume 11.8 fL (9.4-12.4); Red Blood Count 2.66 X10*6/uL (4.60-5.80); Red Cell Distribution Width 13.3 % (11.0-16.0)
[2024-01-22 19:19] LABS: Platelet Count 38 X10*3/uL (160-400)
[2024-01-22 19:31] LABS: INTERNATIONAL NORM RATIO 1.3 (0.9-1.1); Prothrombin Time 15.2 SEC (11.1-13.3)
[2024-01-22 19:35] LABS: Anion Gap 12 (12-20); Blood Urea Nitrogen 6 mg/dL (9-16); Calcium 8.7 mg/dL (8.4-10.2); Carbon Dioxide 21 mmol/L (22-29); Chloride 115 mmol/L (96-108); Creatinine Clr Calc Pharmacy 85.5; Estimated Glomerular Filt Rate > 60; Glucose Random 172 mg/dL (60-115); Potassium 3.6 mmol/L (3.3-5.1); Sodium 144 mmol/L (135-145)
[2024-01-22 22:55] LABS: Glucose, Whole Blood 139 mg/dL (60-115)
[2024-01-22] MEDS: Acetaminophen 325 MG TABLET 650 MG PO (22:58)
[2024-01-23] VITALS (14 sets, daily range): BP systolic 98–149; BP diastolic 48–66; PULSE 68–86; RESP 16–20; TEMP 36.7–38.6; O2SAT 88–99
[2024-01-23] MEDS: Pantoprazole Sodium 80 MG in 0.9 % Sodium Chloride 80 ML 10 MG IV ×2 (02:34→16:59)
[2024-01-23] MEDS: Dextrose 5 % and 0.9 % NaCl 1,000 ML 100 ML IVCONT ×2 (02:34→16:53)
[2024-01-23] MEDS: Albumin Human 25 % 100 ML IV (02:34)
[2024-01-23 06:07] LABS: Glucose, Whole Blood 119 mg/dL (60-115)
--- NOTE | 2024-01-23 08:42 | PC.NURSE ---
Albumin administration at 2045 & 0245. Lot number [id number], EXp [id number] for both bottles. Both albumin bottles contain dark but see through albumin. Pharmacy called regarding the thong color and confirmed the albumin is safe to administer without a filter and the albumin being supplied to the hospital is just from a different order worker per pharmacist Doris Rose.
[2024-01-23 08:50] LABS: Hematocrit 23.7 % (42.0-52.0); Mean Corpuscular HGB Conc 33.8 g/dl (31.0-36.0); Mean Corpuscular Hemoglobin 32.4 pg (27.0-33.0); Mean Platelet Volume 10.6 fL (9.4-12.4); Platelet Count 41 X10*3/uL (160-400); Red Blood Count 2.47 X10*6/uL (4.60-5.80); Red Cell Distribution Width 13.2 % (11.0-16.0); White Blood Count 2.6 X10*3/uL (4.8-10.8)
[2024-01-23 08:54] LABS: Venous Blood Gas Refer to POC result
[2024-01-23 08:55] LABS: VBG Base Excess 3.1 mmol/L; VBG HCO3 25 mmol/L (22-26); VBG pCO2 29 mmHg; VBG pH 7.53 (7.32-7.43); VBG pO2 141 mmHg
[2024-01-23 08:58] LABS: INTERNATIONAL NORM RATIO 1.3 (0.9-1.1); Prothrombin Time 16.4 SEC (11.1-13.3)
[2024-01-23] MEDS: Acetaminophen 325 MG TABLET 650 MG PO ×2 (08:59→23:43)
[2024-01-23] MEDS: PHENobarbitaL 15 MG TABLET 45 MG PO ×2 (08:59→21:47)
[2024-01-23] MEDS: Folic Acid 1 MG in 0.9 % Sodium Chloride 50 ML 100.4 MG IV (08:59)
[2024-01-23] MEDS: Thiamine HCL 100 MG in 0.9 % Sodium Chloride 100 ML 202 MG IV (09:04)
[2024-01-23] MEDS: 0.9 % Sodium Chloride Flush 3 ML SYRINGE IVFLUSH ×3 (09:05→21:47)
[2024-01-23 09:08] LABS: Anion Gap 10 (12-20); Blood Urea Nitrogen 6 mg/dL (9-16); Calcium 8.4 mg/dL (8.4-10.2); Carbon Dioxide 23 mmol/L (22-29); Chloride 112 mmol/L (96-108); Creatinine Clr Calc Pharmacy 96.9; Estimated Glomerular Filt Rate > 60; Glucose Random 122 mg/dL (60-115); Potassium 3.2 mmol/L (3.3-5.1); Sodium 142 mmol/L (135-145)
--- NOTE | 2024-01-23 09:51 | MHC.CM.PN ---
Pt [address] He confirmed his HCP, Guillermo, his brother who lives in [place]. He said he does not want to go to a halfway, he has done that before, and gone to sober programs, but then goes back to drinking. He does not have a PCP, said he could not afford to see a doctor. I told him he has Medicaid, and he was surprised, will give him the # and discussed him going to [facility], which he is familiar with. CM to follow and assist with DC plan.
[2024-01-23 10:21] LABS: Glucose, Whole Blood 125 mg/dL (60-115)
--- NOTE | 2024-01-23 10:32 | HO.PM.IMPN ---
Subjective Subjective Date of Service: 01/23/24 Interval History: f/u on gib, acute blood anemia, Physical Exam Vital Signs: Vital Signs: Last Vital Signs Temp 98.4 F 01/23/24 07:35 Pulse 76 01/23/24 07:35 Resp 16 01/23/24 07:35 BP 137/60 01/23/24 07:35 Pulse Ox 89 L 01/23/24 07:35 O2 Del Method Nasal Cannula 01/23/24 07:35 O2 Flow Rate 4 01/23/24 07:35 BMI result Body Mass Index 19.4 General: AO X 3, no acute distress Resp: CTA bilateral CVS: S1,S2,RRR GI: +BS, NT, no distention Skin: No rash Neuro: motor grossly intact Psych: appropriate affect Objective Data Active Medications Acetaminophen (Acetaminophen 325 Mg Tablet) 650 mg PO Q6H PRN PRN Reason: Pain, Mild (Pain Scale 1-3) Last Admin: 01/23/24 08:59 Dose: 650 mg Documented By: ERNIE Dextrose (Dextrose 50 % 25 Gm/50 Ml Syringe) 25 gm IVPUSH Q15M PRN; Protocol PRN Reason: per Hypoglycemia Standing Ord. Glucose (Glucose Gel 15 Gm Gel..Gram.) 15 gm PO Q15M PRN; Protocol PRN Reason: per Hypoglycemia Standing Ord. Octreotide Acetate 500 mcg/ (Sodium Chloride) 501 mls @ 25.05 mls/hr IVCONT .Q20H [facility] Last Admin: 01/22/24 22:59 Dose: 25 mcg/hr, 25.05 mls/hr Documented By: ARNALDO Thiamine HCl 100 mg/ Sodium (Chloride) 101 mls @ 202 mls/hr IV DAILY [facility] Last Admin: 01/23/24 09:04 Dose: 202 mls/hr Documented By: ERNIE Dextrose/Sodium Chloride (D5ns) 1,000 mls @ 100 mls/hr IVCONT .Q10H [facility] Last Admin: 01/23/24 02:34 Dose: 100 mls/hr Documented By: ARNALDO Pantoprazole Sodium 80 mg/ (Sodium Chloride) 100 mls @ 10 mls/hr IV .Q10H [facility] Last Admin: 01/23/24 02:34 Dose: 8 mg/hr, 10 mls/hr Documented By: ARNALDO Folic Acid 1 mg/ Sodium (Chloride) 50.2 mls @ 100.4 mls/hr IV DAILY [facility] Last Admin: 01/23/24 08:59 Dose: 100.4 mls/hr Documented By: ERNIE Pharmacy Consult (Consult Rx Etoh Phenob Im/Po) 1 each MISCELLANE ONCE PRN; Protocol PRN Reason: Consult order Phenobarbital (Phenobarbital 15 Mg Tablet) 45 mg PO BID [facility]; Protocol Stop: 01/24/24 21:01 Last Admin: 01/23/24 08:59 Dose: 45 mg Documented By: ERNIE Phenobarbital (Phenobarbital 15 Mg Tablet) 15 mg PO BID [facility]; Protocol Stop: 01/26/24 21:01 Phenobarbital (Phenobarbital 15 Mg Tablet) 15 mg PO DAILY [facility]; Protocol Stop: 01/28/24 09:01 Sodium Chloride (0.9 % Sodium Chloride Flush 3 Ml Syringe) 3 ml IVFLUSH QSHIFT [facility] Last Admin: 01/23/24 09:05 Dose: 3 ml Documented By: ERNIE Labs 01/23/24 08:39 01/23/24 08:39 Labs: Laboratory Results - last 24 hr 01/22/24 01/22/24 01/22/24 09:27 11:09 14:22 MCV MCH MCHC RDW Plt Count MPV Absolute Nucleated RBC Nucleated RBC % (auto) Smear Path Review SEE NOTE PT INR VBG pH VBG pCO2 VBG pO2 VBG HCO3 VBG O2 Saturation VBG Base Excess Anion Gap Estim Creat Clear Calc Estimated GFR POC Glucose 106 117 H Random Glucose Calcium Blood Type B Positive Antibody Screen NEGATIVE ELLIOT, Polyspecific NEGATIVE Positive ELLIOT Work-up TNP Crossmatch ([facility]) See Detail 01/22/24 01/22/24 01/22/24 18:18 19:07 22:51 MCV 95.9 MCH 31.6 MCHC 32.9 RDW 13.3 Plt Count 38 L MPV 11.8 Absolute Nucleated RBC 0.000 Nucleated RBC % (auto) 0.0 Smear Path Review PT 15.2 H INR 1.3 H VBG pH VBG pCO2 VBG pO2 VBG HCO3 VBG O2 Saturation VBG Base Excess Anion Gap 12 Estim Creat Clear Calc 85.5 Estimated GFR > 60 POC Glucose 232 H 139 H Random Glucose 172 H Calcium 8.7 Blood Type Antibody Screen ELLIOT, Polyspecific Positive ELLIOT Work-up Crossmatch ([facility]) 01/23/24 01/23/24 01/23/24 06:01 08:39 08:49 MCV 96.0 MCH 32.4 MCHC 33.8 RDW 13.2 Plt Count 41 L MPV 10.6 Absolute Nucleated RBC 0.000 Nucleated RBC % (auto) 0.0 Smear Path Review PT 16.4 H INR 1.3 H VBG pH 7.53 H VBG pCO2 29 VBG pO2 141 VBG HCO3 25 VBG O2 Saturation 99.0 VBG Base Excess 3.1 Anion Gap 10 L Estim Creat Clear Calc 96.9 Estimated GFR > 60 POC Glucose 119 H Random Glucose 122 H Calcium 8.4 Blood Type Antibody Screen ELLIOT, Polyspecific Positive ELLIOT Work-up Crossmatch ([facility]) 01/23/24 10:17 MCV MCH MCHC RDW Plt Count MPV Absolute Nucleated RBC Nucleated RBC % (auto) Smear Path Review PT INR VBG pH VBG pCO2 VBG pO2 VBG HCO3 VBG O2 Saturation VBG Base Excess Anion Gap Estim Creat Clear Calc Estimated GFR POC Glucose 125 H Random Glucose Calcium Blood Type Antibody Screen ELLIOT, Polyspecific Positive ELLIOT Work-up Crossmatch ([facility]) Assessment and Plan (1) Hematemesis: Status: Acute (2) Alcohol intoxication: Status: Acute (3) Esophageal varices: Status: Acute (4) Acute blood loss anemia: Status: Acute Plan 53 years old man with past medical history significant for alcoholic liver cirrhosis, varices admitte Hematemesis with acute blood loss anemia. DDx: varices, PUD, gastritis, esophagitis -IV PPI -IV octreotide -Transfse as needed for Hgb < 7 -For EGD today -no NSAID or anticoagulatns -Platlets if actively bleeding Coagulopathy with Elevated INR secondary to liver disease. Vitamin K 10 mg daily x 3 days Elevated LFTs secondary to alcohol abuse. Continue to monitor. Alcohol Use desorder. No active withdrawal [facility] protocol. Thiamine IV. Folic acid, multivitamins and magnesium when able. HFpEF. No acute symptoms reported. DVT prophylaxis: SCDs Code status: Full need for inpatient: management for upper GI Bleeding, acute blood loss anemia, needing transfusion and need frequent cbc Quality Stroke Does the patient have a stroke diagnosis?: No VTE Prior VTE?: No VTE Risk Level:: Medical - moderate - high VTE Device Contraindication: N/A - Device Ordered VTE Drug Contraindication: Treatment Not Indicated
--- NOTE | 2024-01-23 14:37 | HO.ANESPROP2 ---
HPI - Anesthesia Eval Consult details Narrative: 53 yo male patient with alcoholic liver cirrhosis, esophageal varices and ongoing alcohol abuse with bright red bloody emesis, anemia Stable H/H in last 2 days-8.5/25.9. S/p transfusion of 2 units. Last unit this am. Plt 41 post transfusion For EGD, possible banding PMFSH Active Problems Active Problems: All Active Problems (Updated 01/23/24 @ 14:35 by Joya Mar MD) Hematemesis (Acute) Alcohol intoxication (Acute) Esophageal varices (Acute) Acute blood loss anemia (Acute) Hepatic encephalopathy (Acute) Alcohol withdrawal syndrome (Acute) Alcohol use disorder (Acute) Pancytopenia (Acute) Cirrhosis (Acute) Encephalopathy (Acute) Thrombocytopenia (Acute) Acute on chronic anemia (Acute) Denies EMMA Denies drug use Past Medical History Medical History Alcohol withdrawal syndrome Cirrhosis Malnutrition CHF (congestive heart failure) Anemia Aspiration pneumonia Pneumonia Hypomagnesemia Thrombocytopenia Alcoholic liver disease Acute on chronic anemia CHF (congestive heart failure) Anemia Alcohol abuse Family History Family history of problems with anesthesia: No Surgical History Surgical History No history of previous surgery History of Problems with Anesthesia: No Social History Social History Household Members: None Household Members Other:: pt homeless Housing: Homeless Housing Other:: homeless Do you presently have visiting nurse or other home services: No Alcohol intake: current Alcohol intake frequency: 3 or more drinks per day Alcohol type: beer, wine and hard liquor Comment: 1:1 sitter. Patient Tobacco Use Status: Former Tobacco user Quit Date: 12 years ago Tobacco use type: Cigarette Second Hand Smoke Exposure: No Advance Directives Date on File: 07/13/23 service: No Meds Allergies Allergy/AdvReac Type Severity Reaction Status Date / Time No Known Allergies Allergy Verified 01/23/24 14:42 [No Known Allergies*] Active Medications: Current Medications Acetaminophen (Acetaminophen 325 Mg Tablet) 650 mg PO Q6H PRN PRN Reason: Pain, Mild (Pain Scale 1-3) Last Admin: 01/23/24 08:59 Dose: 650 mg Dextrose (Dextrose 50 % 25 Gm/50 Ml Syringe) 25 gm IVPUSH Q15M PRN; Protocol PRN Reason: per Hypoglycemia Standing Ord. Glucose (Glucose Gel 15 Gm Gel..Gram.) 15 gm PO Q15M PRN; Protocol PRN Reason: per Hypoglycemia Standing Ord. Octreotide Acetate 500 mcg/ (Sodium Chloride) 501 mls @ 25.05 mls/hr IVCONT .Q20H [facility] Last Admin: 01/22/24 22:59 Dose: 25 mcg/hr, 25.05 mls/hr Thiamine HCl 100 mg/ Sodium (Chloride) 101 mls @ 202 mls/hr IV DAILY [facility] Last Infusion: 01/23/24 12:24 Dose: Infused Dextrose/Sodium Chloride (D5ns) 1,000 mls @ 100 mls/hr IVCONT .Q10H [facility] Last Infusion: 01/23/24 12:23 Dose: 0 mls/hr Pantoprazole Sodium 80 mg/ (Sodium Chloride) 100 mls @ 10 mls/hr IV .Q10H [facility] Last Infusion: 01/23/24 12:14 Dose: Infused Folic Acid 1 mg/ Sodium (Chloride) 50.2 mls @ 100.4 mls/hr IV DAILY [facility] Last Infusion: 01/23/24 12:24 Dose: Infused Pharmacy Consult (Consult Rx Etoh Phenob Im/Po) 1 each MISCELLANE ONCE PRN; Protocol PRN Reason: Consult order Phenobarbital (Phenobarbital 15 Mg Tablet) 45 mg PO BID [facility]; Protocol Stop: 01/24/24 21:01 Last Admin: 01/23/24 08:59 Dose: 45 mg Phenobarbital (Phenobarbital 15 Mg Tablet) 15 mg PO BID [facility]; Protocol Stop: 01/26/24 21:01 Phenobarbital (Phenobarbital 15 Mg Tablet) 15 mg PO DAILY [facility]; Protocol Stop: 01/28/24 09:01 Sodium Chloride (0.9 % Sodium Chloride Flush 3 Ml Syringe) 3 ml IVFLUSH QSHIFT [facility] Last Admin: 01/23/24 09:05 Dose: 3 ml Home Medications Medication Instructions Recorded Confirmed Last Taken Type No Known Home Meds 01/22/24 01/22/24 Unknown History Exam Height,Weight and Vital Signs: Height 5 ft 6 in Weight 54.4 kg Last Vital Signs Temp 98.5 F 01/23/24 11:14 Pulse 77 01/23/24 11:14 Resp 16 01/23/24 11:14 BP 119/51 L 01/23/24 11:14 Pulse Ox 90 L 01/23/24 11:14 O2 Del Method Nasal Cannula 01/23/24 11:14 O2 Flow Rate 4 01/23/24 11:14 Pertinent Lab Results Pertinent Lab Results: Laboratory Tests 01/22/24 01/22/24 01/22/24 02:01 03:46 04:57 WBC 3.1 L 3.0 L RBC 2.70 L 2.69 L Hgb 8.5 L 8.3 L Hct 25.2 L 25.6 L MCV 93.3 95.2 MCH 31.5 30.9 MCHC 33.7 32.4 RDW 13.2 13.1 Plt Count 46 L 40 L MPV 11.8 11.8 Immature Gran % (Auto) 0.3 Neut % (Auto) 51.3 Lymph % (Auto) 32.5 [place] % (Auto) 11.8 H Eos % (Auto) 3.5 Baso % (Auto) 0.6 Lymph # (Auto) 1.0 L [place] # (Auto) 0.4 Eos # (Auto) 0.1 Baso # (Auto) 0.0 Abs Immat Gran (auto) 0.01 Absolute Neuts (auto) 1.6 L Absolute Nucleated RBC 0.000 0.000 Nucleated RBC % (auto) 0.0 0.0 Smear Path Review PT 15.3 H INR 1.3 H APTT 35.9 VBG pH VBG pCO2 VBG pO2 VBG HCO3 VBG O2 Saturation VBG Base Excess Sodium 145 146 H Potassium 3.4 3.5 Chloride 114 H 116 H Carbon Dioxide 22 21 L Anion Gap 12 13 BUN 9 8 L Creatinine 0.64 0.62 Estim Creat Clear Calc 101.5 104.8 Estimated GFR > 60 > 60 POC Glucose Random Glucose 100 45 L* Calcium 8.7 8.3 L Magnesium 1.7 1.7 Total Bilirubin 0.5 0.5 Direct Bilirubin 0.3 AST 43 H 40 H ALT 16 14 Alkaline Phosphatase 131 H 125 H Total Protein 6.5 6.3 L Albumin 3.1 L 3.1 L Lipase 22 Urine Opiates Screen Not Detected Urine Fentanyl Screen Not Detected Ur Barbiturates Screen Not Detected Ur Phencyclidine Scrn Not Detected Ur Amphetamines Screen Not Detected U Benzodiazepines Scrn Not Detected Urine Cocaine Screen Not Detected U Marijuana (THC) Screen Not Detected Ethyl Alcohol 291 Blood Type Antibody Screen ELLIOT, Polyspecific Positive ELLIOT Work-up Crossmatch ([facility]) 01/22/24 01/22/24 01/22/24 06:06 06:50 09:27 WBC 1.9 L RBC 2.73 L Hgb 8.5 L Hct 25.9 L MCV 94.9 MCH 31.1 MCHC 32.8 RDW 13.2 Plt Count 41 L MPV 11.9 Immature Gran % (Auto) Neut % (Auto) Lymph % (Auto) [place] % (Auto) Eos % (Auto) Baso % (Auto) Lymph # (Auto) [place] # (Auto) Eos # (Auto) Baso # (Auto) Abs Immat Gran (auto) Absolute Neuts (auto) Absolute Nucleated RBC 0.000 Nucleated RBC % (auto) 0.0 Smear Path Review SEE NOTE PT INR APTT VBG pH VBG pCO2 VBG pO2 VBG HCO3 VBG O2 Saturation VBG Base Excess Sodium Potassium Chloride Carbon Dioxide Anion Gap BUN Creatinine Estim Creat Clear Calc Estimated GFR POC Glucose 113 113 Random Glucose Calcium Magnesium Total Bilirubin Direct Bilirubin AST ALT Alkaline Phosphatase Total Protein Albumin Lipase Urine Opiates Screen Urine Fentanyl Screen Ur Barbiturates Screen Ur Phencyclidine Scrn Ur Amphetamines Screen U Benzodiazepines Scrn Urine Cocaine Screen U Marijuana (THC) Screen Ethyl Alcohol Blood Type B Positive Antibody Screen NEGATIVE ELLIOT, Polyspecific NEGATIVE Positive ELLIOT Work-up TNP Crossmatch ([facility]) See Detail 01/22/24 01/22/24 01/22/24 11:09 14:22 18:18 WBC RBC Hgb Hct MCV MCH MCHC RDW Plt Count MPV Immature Gran % (Auto) Neut % (Auto) Lymph % (Auto) [place] % (Auto) Eos % (Auto) Baso % (Auto) Lymph # (Auto) [place] # (Auto) Eos # (Auto) Baso # (Auto) Abs Immat Gran (auto) Absolute Neuts (auto) Absolute Nucleated RBC Nucleated RBC % (auto) Smear Path Review PT INR APTT VBG pH VBG pCO2 VBG pO2 VBG HCO3 VBG O2 Saturation VBG Base Excess Sodium Potassium Chloride Carbon Dioxide Anion Gap BUN Creatinine Estim Creat Clear Calc Estimated GFR POC Glucose 106 117 H 232 H Random Glucose Calcium Magnesium Total Bilirubin Direct Bilirubin AST ALT Alkaline Phosphatase Total Protein Albumin Lipase Urine Opiates Screen Urine Fentanyl Screen Ur Barbiturates Screen Ur Phencyclidine Scrn Ur Amphetamines Screen U Benzodiazepines Scrn Urine Cocaine Screen U Marijuana (THC) Screen Ethyl Alcohol Blood Type Antibody Screen ELLIOT, Polyspecific Positive ELLIOT Work-up Crossmatch ([facility]) 01/22/24 01/22/24 01/23/24 19:07 22:51 06:01 WBC 2.0 L RBC 2.66 L Hgb 8.4 L Hct 25.5 L MCV 95.9 MCH 31.6 MCHC 32.9 RDW 13.3 Plt Count 38 L MPV 11.8 Immature Gran % (Auto) Neut % (Auto) Lymph % (Auto) [place] % (Auto) Eos % (Auto) Baso % (Auto) Lymph # (Auto) [place] # (Auto) Eos # (Auto) Baso # (Auto) Abs Immat Gran (auto) Absolute Neuts (auto) Absolute Nucleated RBC 0.000 Nucleated RBC % (auto) 0.0 Smear Path Review PT 15.2 H INR 1.3 H APTT VBG pH VBG pCO2 VBG pO2 VBG HCO3 VBG O2 Saturation VBG Base Excess Sodium 144 Potassium 3.6 Chloride 115 H Carbon Dioxide 21 L Anion Gap 12 BUN 6 L Creatinine 0.76 Estim Creat Clear Calc 85.5 Estimated GFR > 60 POC Glucose 139 H 119 H Random Glucose 172 H Calcium 8.7 Magnesium Total Bilirubin Direct Bilirubin AST ALT Alkaline Phosphatase Total Protein Albumin Lipase Urine Opiates Screen Urine Fentanyl Screen Ur Barbiturates Screen Ur Phencyclidine Scrn Ur Amphetamines Screen U Benzodiazepines Scrn Urine Cocaine Screen U Marijuana (THC) Screen Ethyl Alcohol Blood Type Antibody Screen ELLIOT, Polyspecific Positive ELLIOT Work-up Crossmatch ([facility]) 01/23/24 01/23/24 01/23/24 08:39 08:49 10:17 WBC 2.6 L RBC 2.47 L Hgb 8.0 L Hct 23.7 L MCV 96.0 MCH 32.4 MCHC 33.8 RDW 13.2 Plt Count 41 L MPV 10.6 Immature Gran % (Auto) Neut % (Auto) Lymph % (Auto) [place] % (Auto) Eos % (Auto) Baso % (Auto) Lymph # (Auto) [place] # (Auto) Eos # (Auto) Baso # (Auto) Abs Immat Gran (auto) Absolute Neuts (auto) Absolute Nucleated RBC 0.000 Nucleated RBC % (auto) 0.0 Smear Path Review PT 16.4 H INR 1.3 H APTT VBG pH 7.53 H VBG pCO2 29 VBG pO2 141 VBG HCO3 25 VBG O2 Saturation 99.0 VBG Base Excess 3.1 Sodium 142 Potassium 3.2 L Chloride 112 H Carbon Dioxide 23 Anion Gap 10 L BUN 6 L Creatinine 0.67 Estim Creat Clear Calc 96.9 Estimated GFR > 60 POC Glucose 125 H Random Glucose 122 H Calcium 8.4 Magnesium Total Bilirubin Direct Bilirubin AST ALT Alkaline Phosphatase Total Protein Albumin Lipase Urine Opiates Screen Urine Fentanyl Screen Ur Barbiturates Screen Ur Phencyclidine Scrn Ur Amphetamines Screen U Benzodiazepines Scrn Urine Cocaine Screen U Marijuana (THC) Screen Ethyl Alcohol Blood Type Antibody Screen ELLIOT, Polyspecific Positive ELLIOT Work-up Crossmatch ([facility]) Airway Mallampati Class: II TM Dist: >3cm Neck ROM: Full (but soreness back of neck radiating towards shoulders since in hospital) Loose/Missing/Broken Teeth: Yes (Missing teeth back. Broken tooth bottom left back. denies loose teeth) Heart: RRR Lungs: CTAB Assessment and Plan Assessment Anesthesia Assessment: Anesthesia Plan Discussed and Chart Reviewed Final Anesthetic Review Family History of Problems with Anesthesia: No History of Problems with Anesthesia: No NPO: Yes ASA Class: IV and Emergency Final Preanesthetic Review: No Changes in Pt Med Stat, Meds/Allgs Chart Reviewed, Consent Obtained/Reviewed and Anes Risks/Benef Reviewed Patient Risk: High Procedure Risk: Intermediate Assessment/Block/Sedation in SS: Assess/Block/Sedation-SS Anesthetic Plan Anesthetic Plan: GA, MAC: and TIVA Disposition: Standard PACU
--- NOTE | 2024-01-23 15:05 | P.PNGI_ITS ---
Subjective Subjective Date of Service: 01/23/24 Interval History: no melena HGb stable co/o hunger and wants to eat no abdominal pain no hematuria or nose bleeds Critical Care Time (minutes): 0 Physical Exam 2 Vital Signs: Vital Signs: Last Vital Signs Temp 100.0 F 01/23/24 14:56 Pulse 73 01/23/24 14:56 Resp 18 01/23/24 14:56 BP 124/53 L 01/23/24 14:56 Pulse Ox 93 01/23/24 14:56 O2 Del Method Nasal Cannula 01/23/24 14:56 O2 Flow Rate 4 01/23/24 14:56 BMI result Body Mass Index 19.4 EXAM: GENERAL: The patient is relaxed VITAL SIGNS:see workflow HEENT: Nonicteric sclerae, PERRLA, EOMI. Oropharynx clear. Moist mucous membranes. Conjunctivae appear well perfused. No thyroid mass. CHEST: Chest wall is nontender. HEART: Regular rate and rhythm without murmurs. LUNGS: Clear to auscultation bilaterally. ABDOMEN: Soft, positive bowel sounds, nontender, no organomegaly.no flank tenderness SKIN: No rash, no excessive bruising, petechiae, or purpura. NEUROLOGIC: Cranial nerves II-XII intact without motor/sensory deficit. Psych: normal affect Objective Data Labs 01/23/24 08:39 01/23/24 08:39 Labs: Laboratory Results - last 24 hr 01/22/24 01/22/24 01/22/24 09:27 18:18 19:07 WBC 2.0 L RBC 2.66 L Hgb 8.4 L Hct 25.5 L MCV 95.9 MCH 31.6 MCHC 32.9 RDW 13.3 Plt Count 38 L MPV 11.8 Absolute Nucleated RBC 0.000 Nucleated RBC % (auto) 0.0 Smear Path Review SEE NOTE PT 15.2 H INR 1.3 H VBG pH VBG pCO2 VBG pO2 VBG HCO3 VBG O2 Saturation VBG Base Excess Sodium 144 Potassium 3.6 Chloride 115 H Carbon Dioxide 21 L Anion Gap 12 BUN 6 L Creatinine 0.76 Estim Creat Clear Calc 85.5 Estimated GFR > 60 POC Glucose 232 H Random Glucose 172 H Calcium 8.7 Blood Type B Positive Antibody Screen NEGATIVE ELLIOT, Polyspecific NEGATIVE Positive ELLIOT Work-up TNP Crossmatch ([facility]) See Detail 01/22/24 01/23/24 01/23/24 22:51 06:01 08:39 WBC 2.6 L RBC 2.47 L Hgb 8.0 L Hct 23.7 L MCV 96.0 MCH 32.4 MCHC 33.8 RDW 13.2 Plt Count 41 L MPV 10.6 Absolute Nucleated RBC 0.000 Nucleated RBC % (auto) 0.0 Smear Path Review PT 16.4 H INR 1.3 H VBG pH VBG pCO2 VBG pO2 VBG HCO3 VBG O2 Saturation VBG Base Excess Sodium 142 Potassium 3.2 L Chloride 112 H Carbon Dioxide 23 Anion Gap 10 L BUN 6 L Creatinine 0.67 Estim Creat Clear Calc 96.9 Estimated GFR > 60 POC Glucose 139 H 119 H Random Glucose 122 H Calcium 8.4 Blood Type Antibody Screen ELLIOT, Polyspecific Positive ELLIOT Work-up Crossmatch ([facility]) 01/23/24 01/23/24 08:49 10:17 WBC RBC Hgb Hct MCV MCH MCHC RDW Plt Count MPV Absolute Nucleated RBC Nucleated RBC % (auto) Smear Path Review PT INR VBG pH 7.53 H VBG pCO2 29 VBG pO2 141 VBG HCO3 25 VBG O2 Saturation 99.0 VBG Base Excess 3.1 Sodium Potassium Chloride Carbon Dioxide Anion Gap BUN Creatinine Estim Creat Clear Calc Estimated GFR POC Glucose 125 H Random Glucose Calcium Blood Type Antibody Screen ELLIOT, Polyspecific Positive ELLIOT Work-up Crossmatch ([facility]) Procedures Date of Service Date of Service: 01/23/24 Progress Note: A&P Assessment and plan (1) Acute blood loss anemia: Status: Acute (2) Esophageal varices: Status: Acute Plan 1/ Anemia, stable, may be due to alcohol use or cirrhosis, hypersplenism, recent nose bleeds PLAN: 1/ EGd today for further assessment, hold nsaids, cont with octreotide and PPI 2/ watch for alcohol withdrawal Time Spent With Patient Time: Total time managing care of this patient today ____ minutes. Quality Stroke Does the patient have a stroke diagnosis?: No VTE Prior VTE?: No VTE Risk Level:: Medical - moderate - high VTE Device Contraindication: N/A - Device Ordered VTE Drug Contraindication: Treatment Not Indicated
--- NOTE | 2024-01-23 15:08 | MHC.SHP ---
Pre-Procedural Eval Section A - 24 Hr Update-Section A only Date of Service: 01/23/24 The patient is an INPATIENT: Yes The patient has been examined within 24 hours of the surgical procedure. The History & Physical has been completed within 30 days and I have reviewed it.: Yes Section B - Complete if H&P > 30 days Chief Complaint: GI Bleeding Allergies: Allergies Allergy/AdvReac Type Severity Reaction Status Date / Time No Known Allergies Allergy Verified 01/23/24 14:42 [No Known Allergies*] Plan Diagnosis/Plan: Unchanged I have reviewed the history and physical and performed a pertinent physical examination on my patient. No changes have occurred unless specified. Time Spent With Patient Time: Total time managing care of this patient today ____ minutes.
--- NOTE | 2024-01-23 15:25 | W.PM.OPN ---
Operative Note Operative Note Date of Service: 01/23/24 Narrative: Procedure Description: EGD Indication: anemia Anesthesia: MAC FLEXIBLE TRANSORAL UPPER GASTROINTESTINAL ENDOSCOPY UPPER ENDOSCOPY Consent: Indications for the procedure and potential complications of bleeding, perforation, reaction to medications and missed diagnosis were discussed with the patient and informed consent was obtained. Instrument: Olympus GIF H 190 J mid size upper endoscope Monitoring: Vital signs and clinical assessment, continuous EKG monitoring, Pulse oximetry, Carbon Dioxide monitoring and blood pressure monitoring were done throughout the procedure. Procedure: The patient was placed in the left lateral decubitis position and pre-procedure medications were administered and a bite block was placed. The endoscope was inserted into the mouth and advanced under direct vision to the third part of duodenum. A careful inspection was made as the upper endoscope was withdrawn including a retroflexed examination of the proximal stomach; Findings and interventions are described below. Findings: Larynx:normal Esophagus: GE junction at 40 cm, diaphragm hiatus at 40 cm, x 2 variceal cords grade II but no red stroud, x 2 bands applied with collapse of the columns Stomach: Mosaic pattern consistent with portal hypertensive gastropathy with diffuse redness and erythema but no active bleeding. Grade 2 flap valve on retroflexed examination of the cardia. No gastric varices, old clip from prior procedure noted Duodenum: Normal bulb and descending duodenum, no blood seen Intervention: Banding of varices Impression/Findings: esophageal varices, hemorrhagic portal hypertensive gastropathy , possible alcoholic gastritis PLAN: clears today then advance diet as tolerated carafate 1 g BID Pantoprazole 40 mg daily repeat EGD in 4 weeks compliance with medications
[2024-01-23 16:58] LABS: Glucose, Whole Blood 127 mg/dL (60-115)
[2024-01-23 20:01] LABS: Glucose, Whole Blood 161 mg/dL (60-115)
[2024-01-23] MEDS: Octreotide Acetate 500 MCG in 0.9 % Sodium Chloride 500 ML 25.05 MCG IVCONT (21:47)
[2024-01-24] VITALS (8 sets, daily range): BP systolic 113–134; BP diastolic 58–66; PULSE 68–88; RESP 18–21; TEMP 36.2–37.3; O2SAT 90–97
--- NOTE | 2024-01-24 00:23 | PM.EVENT ---
Event Note Date of Service: 01/24/24 Event Note: Nurse reported a fever of 101.4. Will obtain blood cultures, lactic acid. Giving empiric IV antibiotics. No sepsis. Repeat blood counts in a.m. Vitals within normal limits Time Spent With Patient Time: Total time managing care of this patient today ____ minutes.
[2024-01-24] MEDS: Acetaminophen 1,000 MG/100 ML PIGGYBACK 400 MG IV (00:53)
[2024-01-24] MEDS: 0.9 % Sodium Chloride 250 ML IV (00:55)
[2024-01-24] MEDS: cefTRIAXone sodium 2 GM in 0.9 % Sodium Chloride 50 ML IV (01:08)
[2024-01-24 01:39] LABS: Lactic Acid 1.6 mmol/L (0.5-2.0)
[2024-01-24] MEDS: Pantoprazole Sodium 80 MG in 0.9 % Sodium Chloride 80 ML 10 MG IV (02:35)
[2024-01-24 02:42] LABS: Glucose, Whole Blood 133 mg/dL (60-115)
[2024-01-24 05:59] LABS: Glucose, Whole Blood 89 mg/dL (60-115)
[2024-01-24] MEDS: Lactated Ringers 1,000 ML 100 ML IVCONT (06:00)
[2024-01-24 07:21] LABS: MANUAL DIFF FLAG NO
[2024-01-24 07:27] LABS: Basophils Percent Auto 0.3 % (0-2); Eosinophils Absolute Auto 0.1 X10*3/uL (0.0-0.4); Eosinophils Percent Auto 3.8 % (0-4); Hematocrit 23.4 % (42.0-52.0); Hemoglobin 7.7 g/dl (14.0-18.0); Imm Gran Abs Auto 0.02 X10*3/uL (0.00-0.03); Imm Gran Pct Auto 0.6 % (0.0-0.4); Lymphocytes Absolute Auto 0.6 X10*3/uL (1.2-4.9); Lymphocytes Percent Auto 16.2 % (20-40); Mean Corpuscular HGB Conc 32.9 g/dl (31.0-36.0); Mean Corpuscular Hemoglobin 31.2 pg (27.0-33.0); Mean Corpuscular Volume 94.7 fL (80.0-98.0); Mean Platelet Volume 11.8 fL (9.4-12.4); Monocytes Absolute Auto 0.2 X10*3/uL (0.1-1.2); Monocytes Percent Auto 6.4 % (2-11); Neutrophils Absolute Auto 2.5 x10*3/uL (2.0-8.3); Neutrophils Percent Auto 72.7 % (45-73); Red Blood Count 2.47 X10*6/uL (4.60-5.80); Red Cell Distribution Width 13.2 % (11.0-16.0); White Blood Count 3.5 X10*3/uL (4.8-10.8)
[2024-01-24 07:28] LABS: Platelet Count 41 X10*3/uL (160-400)
[2024-01-24 07:38] LABS: Anion Gap 8 (12-20); Blood Urea Nitrogen 5 mg/dL (9-16); Calcium 8.2 mg/dL (8.4-10.2); Carbon Dioxide 24 mmol/L (22-29); Chloride 111 mmol/L (96-108); Creatinine Clr Calc Pharmacy 96.9; Estimated Glomerular Filt Rate > 60; Glucose Random 96 mg/dL (60-115); Potassium 3.2 mmol/L (3.3-5.1); Sodium 140 mmol/L (135-145)
[2024-01-24 07:52] LABS: Glucose, Whole Blood 132 mg/dL (60-115)
[2024-01-24] MEDS: PHENobarbitaL 15 MG TABLET 45 MG PO ×2 (08:05→21:25)
[2024-01-24] MEDS: Folic Acid 1 MG in 0.9 % Sodium Chloride 50 ML 100.4 MG IV (08:06)
[2024-01-24] MEDS: Thiamine HCL 100 MG in 0.9 % Sodium Chloride 100 ML 202 MG IV (08:12)
--- NOTE | 2024-01-24 09:03 | HO.POSTANES ---
Post Anesthesia Evaluation Post Anesthesia Evaluation Date of Service: 01/24/24 Vital Signs: Vital Signs Temp Pulse Resp BP Pulse Ox O2 Del Method O2 Flow Rate 01/24/24 07:44 98.6 F 83 18 122/58 L 97 Room Air 01/24/24 03:12 97.1 F 86 18 120/58 L 94 Nasal Cannula 2 01/24/24 00:38 99.1 F 88 128/66 92 Nasal Cannula 2 01/23/24 23:46 100.9 F H 86 01/23/24 23:22 101.4 F H 86 19 121/58 L 89 L Nasal Cannula 2.5 Anesthesia: Monitored Mental Status: Awake Pain Control: Satisfactory Nausea/Vomiting: None Hydration: Adequate Anesthesia-Related Issues: No Anes. Related Issues
[2024-01-24] MEDS: Acetaminophen 325 MG TABLET 650 MG PO (09:23)
[2024-01-24] MEDS: LORazepam 1 MG TABLET PO (10:50)
[2024-01-24 10:59] LABS: Glucose, Whole Blood 109 mg/dL (60-115)
--- NOTE | 2024-01-24 11:15 | P.PNIM_ITS ---
Subjective Subjective Date of Service: 01/24/24 Interval History: f/u on gib, acute blood loss anemia had EGD yesterday with finding of varices, portal HTN, gastritis Physical Exam 2 Vital Signs: Vital Signs: Last Vital Signs Temp 98.7 F 01/24/24 10:57 Pulse 83 01/24/24 10:57 Resp 20 01/24/24 10:57 BP 124/58 L 01/24/24 10:57 Pulse Ox 92 01/24/24 10:57 O2 Del Method Nasal Cannula 01/24/24 10:57 O2 Flow Rate 2 01/24/24 10:57 BMI result Body Mass Index 19.4 General: AO X 3, no acute distress Resp: CTA bilateral CVS: S1,S2,RRR GI: +BS, NT, no distention Skin: No rash Neuro: motor grossly intact Psych: appropriate affect Objective Data Active Medications Acetaminophen (Acetaminophen 325 Mg Tablet) 650 mg PO Q6H PRN PRN Reason: Pain, Mild (Pain Scale 1-3) Last Admin: 01/24/24 09:23 Dose: 650 mg Documented By: BORIS Dextrose (Dextrose 50 % 25 Gm/50 Ml Syringe) 25 gm IVPUSH Q15M PRN; Protocol PRN Reason: per Hypoglycemia Standing Ord. Glucose (Glucose Gel 15 Gm Gel..Gram.) 15 gm PO Q15M PRN; Protocol PRN Reason: per Hypoglycemia Standing Ord. Octreotide Acetate 500 mcg/ (Sodium Chloride) 501 mls @ 25.05 mls/hr IVCONT .Q20H [facility] Last Admin: 01/23/24 21:47 Dose: 25 mcg/hr, 25.05 mls/hr Documented By: IZAIAH Thiamine HCl 100 mg/ Sodium (Chloride) 101 mls @ 202 mls/hr IV DAILY [facility] Last Infusion: 01/24/24 09:07 Dose: Infused Documented By: BORIS Pantoprazole Sodium 80 mg/ (Sodium Chloride) 100 mls @ 10 mls/hr IV .Q10H [facility] Last Admin: 01/24/24 02:35 Dose: 8 mg/hr, 10 mls/hr Documented By: IZAIAH Folic Acid 1 mg/ Sodium (Chloride) 50.2 mls @ 100.4 mls/hr IV DAILY [facility] Last Infusion: 01/24/24 08:37 Dose: Infused Documented By: BORIS Lactated Ringer's (Lr) 1,000 mls @ 100 mls/hr IVCONT .Q10H [facility] Last Admin: 01/24/24 06:00 Dose: 100 mls/hr Documented By: IZAIAH Lorazepam (Lorazepam 1 Mg Tablet) 1 mg PO Q6H PRN PRN Reason: anxiety/restlessness Last Admin: 01/24/24 10:50 Dose: 1 mg Documented By: BORIS Pharmacy Consult (Consult Rx Etoh Phenob Im/Po) 1 each MISCELLANE ONCE PRN; Protocol PRN Reason: Consult order Phenobarbital (Phenobarbital 15 Mg Tablet) 45 mg PO BID [facility]; Protocol Stop: 01/24/24 21:01 Last Admin: 01/24/24 08:05 Dose: 45 mg Documented By: BORIS Phenobarbital (Phenobarbital 15 Mg Tablet) 15 mg PO BID [facility]; Protocol Stop: 01/26/24 21:01 Phenobarbital (Phenobarbital 15 Mg Tablet) 15 mg PO DAILY [facility]; Protocol Stop: 01/28/24 09:01 Sodium Chloride (0.9 % Sodium Chloride Flush 3 Ml Syringe) 3 ml IVFLUSH QSHIFT [facility] Last Admin: 01/24/24 07:50 Dose: Not Given Documented By: BORIS Non-Admin Reason: IV Running Labs 01/24/24 06:48 01/24/24 06:48 Labs: Laboratory Results - last 24 hr 01/23/24 01/23/24 01/24/24 16:50 19:42 01:06 MCV MCH MCHC RDW Plt Count MPV Immature Gran % (Auto) Neut % (Auto) Lymph % (Auto) [place] % (Auto) Eos % (Auto) Baso % (Auto) Lymph # (Auto) [place] # (Auto) Eos # (Auto) Baso # (Auto) Abs Immat Gran (auto) Absolute Neuts (auto) Absolute Nucleated RBC Nucleated RBC % (auto) Anion Gap Estim Creat Clear Calc Estimated GFR POC Glucose 127 H 161 H Random Glucose Lactic Acid 1.6 Calcium 01/24/24 01/24/24 01/24/24 01:55 05:55 06:48 MCV 94.7 MCH 31.2 MCHC 32.9 RDW 13.2 Plt Count 41 L MPV 11.8 Immature Gran % (Auto) 0.6 H Neut % (Auto) 72.7 Lymph % (Auto) 16.2 L [place] % (Auto) 6.4 Eos % (Auto) 3.8 Baso % (Auto) 0.3 Lymph # (Auto) 0.6 L [place] # (Auto) 0.2 Eos # (Auto) 0.1 Baso # (Auto) 0.0 Abs Immat Gran (auto) 0.02 Absolute Neuts (auto) 2.5 Absolute Nucleated RBC 0.000 Nucleated RBC % (auto) 0.0 Anion Gap 8 L Estim Creat Clear Calc 96.9 Estimated GFR > 60 POC Glucose 133 H 89 Random Glucose 96 Lactic Acid Calcium 8.2 L 01/24/24 01/24/24 07:47 10:55 MCV MCH MCHC RDW Plt Count MPV Immature Gran % (Auto) Neut % (Auto) Lymph % (Auto) [place] % (Auto) Eos % (Auto) Baso % (Auto) Lymph # (Auto) [place] # (Auto) Eos # (Auto) Baso # (Auto) Abs Immat Gran (auto) Absolute Neuts (auto) Absolute Nucleated RBC Nucleated RBC % (auto) Anion Gap Estim Creat Clear Calc Estimated GFR POC Glucose 132 H 109 Random Glucose Lactic Acid Calcium Assessment and Plan (1) Hematemesis: Status: Acute (2) Alcohol intoxication: Status: Acute (3) Esophageal varices: Status: Acute (4) Acute blood loss anemia: Status: Acute Plan 53 years old man with past medical history significant for alcoholic liver cirrhosis, varices admitte Hematemesis with acute blood loss anemia. DDx: varices, PUD, gastritis, esophagitis EGD 01/22 esoph varices, gastritis, portal HTN gastropathy -IV PPI to PO PPI + Carafate -DC IV octreotide -Transfuse as needed for Hgb < 7 -advance diet -Alcohol cessation -no NSAID or anticoagulatns Thrombocytopenia -Platlets 41, Transfuse if actively bleeding Coagulopathy with Elevated INR secondary to liver disease. INR lower, hold vit k Elevated LFTs secondary to alcohol abuse. Continue to monitor. Alcohol Use desorder. No active withdrawal CIWA protocol, phenobarb protocol, Folic and thiamine replacement HFpEF. No acute symptoms reported. DVT prophylaxis: SCDs Code status: Full need for inpatient: management for upper GI Bleeding, acute blood loss anemia, needing transfusion and need frequent cbc out of bed, ambulate Quality Stroke Does the patient have a stroke diagnosis?: No VTE Prior VTE?: No VTE Risk Level:: Medical - moderate - high VTE Device Contraindication: N/A - Device Ordered VTE Drug Contraindication: Treatment Not Indicated
[2024-01-24] MEDS: Omeprazole 40 MG CAPSULE.DR PO (12:05)
--- NOTE | 2024-01-24 14:47 | MHC.CM.PN ---
Pt not yet ready for DC, continued treatment for GI bleed. CM to follow and assist with DC planning.
[2024-01-24 15:53] LABS: Glucose, Whole Blood 121 mg/dL (60-115)
[2024-01-24] MEDS: Sucralfate 1 GM TABLET PO (17:55)
[2024-01-24 20:05] LABS: Glucose, Whole Blood 116 mg/dL (60-115)
[2024-01-24] MEDS: Octreotide Acetate 500 MCG in 0.9 % Sodium Chloride 500 ML 25.05 MCG IVCONT (20:28)
[2024-01-25] VITALS (8 sets, daily range): BP systolic 110–146; BP diastolic 32–75; PULSE 76–80; RESP 18–22; TEMP 37–37.8; O2SAT 94–97
[2024-01-25] MEDS: Sucralfate 1 GM TABLET PO ×2 (06:17→16:51)
[2024-01-25] MEDS: Omeprazole 40 MG CAPSULE.DR PO (06:17)
[2024-01-25 07:20] LABS: Glucose, Whole Blood 109 mg/dL (60-115)
[2024-01-25 08:09] LABS: Hematocrit 23.4 % (42.0-52.0); Hemoglobin 7.7 g/dl (14.0-18.0); Mean Corpuscular HGB Conc 32.9 g/dl (31.0-36.0); Mean Corpuscular Hemoglobin 31.2 pg (27.0-33.0); Mean Corpuscular Volume 94.7 fL (80.0-98.0); Mean Platelet Volume 12.6 fL (9.4-12.4); Red Blood Count 2.47 X10*6/uL (4.60-5.80); Red Cell Distribution Width 13.5 % (11.0-16.0); White Blood Count 3.5 X10*3/uL (4.8-10.8)
[2024-01-25 08:15] LABS: Platelet Count 39 X10*3/uL (160-400)
[2024-01-25] MEDS: Thiamine HCL 100 MG in 0.9 % Sodium Chloride 100 ML 202 MG IV (08:32)
[2024-01-25] MEDS: 0.9 % Sodium Chloride Flush 3 ML SYRINGE IVFLUSH ×2 (08:32→16:51)
[2024-01-25] MEDS: PHENobarbitaL 15 MG TABLET PO ×2 (08:32→21:32)
[2024-01-25] MEDS: Folic Acid 1 MG in 0.9 % Sodium Chloride 50 ML 100.4 MG IV (08:32)
[2024-01-25 11:34] LABS: Glucose, Whole Blood 123 mg/dL (60-115)
--- NOTE | 2024-01-25 11:51 | P.DS_ITS ---
DS: Providers Provider Date of Service: 01/25/24 Date of admission: 01/22/24 03:31 Primary care physician: None Physician Consults: 01/22/24 03:36 Consult to Gastroenterology Routine Consulting Provider: Frannie Rose Reason for consultation: Hx of EtOH abuse, varices, presents with GI bleeding Has provider been notified: No 01/22/24 08:24 Consult to Critical Care Routine Consulting Provider: Mary Benavides Reason for consultation: Level of care Has provider been notified: No DS: Diagnosis Discharge Diagnosis (1) Hematemesis: Status: Acute (2) Alcohol intoxication: Status: Acute (3) Esophageal varices: Status: Acute (4) Acute blood loss anemia: Status: Acute DS: Summary Hospital Course Hospital Course: Admission hpi Chief Complaint: vomiting blood Charbel Delgado is a 53 years old man with past medical history significant for alcoholic liver cirrhosis, esophageal varices and ongoing alcohol abuse presents to the emergency department complaining of bloody vomiting (bright red blood) over the last few days especially in the mornings. He denies any associated abdominal pain or diarrhea. Did not report black stools. Last alcoholic beverage was before coming to the emergency department. He did not report any headache, dizziness, chest pain or shortness on breath. He denied tobacco smoking or illicit drug use. In the ED, he was found to have stable vital signs. Last blood pressure is 120/58. There is no tachycardia. Oxygen saturation is normal on room air. CBC was obtained x2. Hemoglobin dropped from 9.3 to 8.5 over 10 hours). There is thrombocytopenia and neutropenia which around baseline. Creatinine and BUN are normal. AST is elevated as well as alk-phos. Bilirubin and ALT are normal. Ethanol level level is 291. ED tx: NS 1 L bolus, Protonix 80 mg IV, octreotide infusion, Zofran 4 mg IV. Hospital courseuse: Patient has a known alcoholic liver cirrhosis and esophageal varices and unfortunately continues to drink alcohol. He presented with vomitting blood and was found to be significantly anemic hemoglobin of 8.3. He was transfused 2 units of RBCs and and 2 units of platlets. He was treated with IV octreotide, IV PPI. He was evaluated GI doctor and underwent EGD on 01/22 with findings and recommendation as follow: esophageal varices, hemorrhagic portal hypertensive gastropathy , possible alcoholic gastritis PLAN: carafate 1 g BID Pantoprazole 40 mg daily repeat EGD in 4 weeks compliance with medications His H/H although low has been stable the last 3 days and he has not have any active bleeding Of note patient had episode of fever decreased oxygen saturation and Chest Xray showed multifocal pneumonia, he was given IV Ceftriaxone, followed by Augmentin. Fever has resolved, and oxygen saturation improved. His oxygen saturation is 92 or room air and his breathing is comfortable. He likeyly had aspiration. He will be discharged with Augmentin for 5 more days. Patient was evaluated by physical therapay and initally recommended for short term rehab but he continues to decline, I could not convince him to take that option, case management also tried to convince but unsucesful. He is alert, oriented to self, place and time and state he knows what is good for him. He is advised to take all his medications as recommended. He has assured us that he will go the pharmacy at [facility] and [facility] up his medication. At this time he is feeling much better, walking in the [place] without any issues. In regards to continuing alcohol use, he was seen by the addiction team and options to help him with cessation were discussed with him..see recovery note Time Attestation Discharge Coordination Time (in mins): 35 Quality: Safe Use of Opioids Does Pt have an Active Cancer Diagnosis on the Problem List?: No Quality: Stroke Does the patient have a stroke diagnosis?: No Physical Exam Vital Signs: Vital Signs: Last Vital Signs Temp 100.1 F 01/25/24 10:56 Pulse 78 01/25/24 10:56 Resp 22 H 01/25/24 10:56 BP 134/32 L 01/25/24 10:56 Pulse Ox 94 01/25/24 10:56 O2 Del Method Nasal Cannula 01/25/24 10:56 O2 Flow Rate 2 01/25/24 10:56 Oxygen Flow Rate 2 01/24/24 15:02 BMI result Body Mass Index 19.4 DS: Data Data Completed and Pending Labs on day of discharge: Laboratory Results - last 24 hr 01/24/24 01/24/24 01/25/24 15:50 20:01 06:52 WBC 3.5 L RBC 2.47 L Hgb 7.7 L Hct 23.4 L MCV 94.7 MCH 31.2 MCHC 32.9 RDW 13.5 Plt Count 39 L MPV 12.6 H Absolute Nucleated RBC 0.000 Nucleated RBC % (auto) 0.0 POC Glucose 121 H 116 H 01/25/24 01/25/24 07:03 11:01 WBC RBC Hgb Hct MCV MCH MCHC RDW Plt Count MPV Absolute Nucleated RBC Nucleated RBC % (auto) POC Glucose 109 123 H Preliminary micro results at discharge 01/24/24 01:06 Blood Culture - Preliminary Blood - Venous No growth after 24 hours. 01/24/24 01:06 Blood Culture - Preliminary Blood - Venous No growth after 24 hours. Discharge Plan Discharge Anticipated Discharge Date/Time: 01/27/24 09:15 Patient Disposition: Home, Self-Care Discharge Diagnosis: GI bleeding, anemia due to acute blood loss. Chronic alcoholism. Referrals: [facility] [Other] - 1 Week (PLEASE GO TO WALK IN CLINIC AT [facility] IF YOU NEED TO SEE A DOCTOR, YOU CAN ALSO REQUEST A PRIMARY CARE DOCTOR AT THE CLINIC WELL. ) Physician,None [Primary Care Provider] - 1 Week Discharge Medications: New amoxicillin-pot clavulanate 875-125 mg Tablet 1 tab PO Q12H Qty: 10 0RF sucralfate 1 gram Tablet 1 g PO BIDAC Qty: 180 0RF omeprazole 40 mg Capsule,Delayed Release(Dr/Ec) 40 mg PO DAILY@0630 Qty: 30 0RF nadolol 20 mg Tablet 10 mg PO DAILY Qty: 10 0RF Protocol: Hold for SBP/HR < HOLD for SBP < : 90 HOLD for HR < : 60 No Action No Known Home Meds Diet: Advance to usual diet Activity on Discharge: As tolerated Stand Alone Forms: Patient Portal Discharge page Care Plan Goals: Abstinence from alcohol resolution of GI bleeding Health Concerns: alcoholism esophageal varices upper GI bleeding alcoholic liver disease thrombocytopenia chronic Plan of Treatment: patient is strongly advised to stop drinking alcohol as this may be deleterious to his health and may cause his he is advised to continue taking Prilosec, sucralfate as directed take Augmentin for pneumonia and follow up with the health center next week, call for appointment Assessment: see above Patient Instructions: Abuse of Alcohol (DC), Pneumonia (DC)
--- NOTE | 2024-01-25 11:55 | P.PNIM_ITS ---
Subjective Subjective Date of Service: 01/25/24 Interval History: f/u on gib, acute blood loss anemia had EGD with finding of varices, portal HTN, gastritis, he has had inermitted fever, and given IV ceftriaxone overnight No further episode of bleeding Review of Systems reports no sob Physical Exam 2 Vital Signs: Vital Signs: Last Vital Signs Temp 100.1 F 01/25/24 10:56 Pulse 78 01/25/24 10:56 Resp 22 H 01/25/24 10:56 BP 134/32 L 01/25/24 10:56 Pulse Ox 94 01/25/24 10:56 O2 Del Method Nasal Cannula 01/25/24 10:56 O2 Flow Rate 2 01/25/24 10:56 Oxygen Flow Rate 2 01/24/24 15:02 BMI result Body Mass Index 19.4 Objective Data Active Medications Acetaminophen (Acetaminophen 325 Mg Tablet) 650 mg PO Q6H PRN PRN Reason: Pain, Mild (Pain Scale 1-3) Last Admin: 01/24/24 09:23 Dose: 650 mg Documented By: BORIS Dextrose (Dextrose 50 % 25 Gm/50 Ml Syringe) 25 gm IVPUSH Q15M PRN; Protocol PRN Reason: per Hypoglycemia Standing Ord. Glucose (Glucose Gel 15 Gm Gel..Gram.) 15 gm PO Q15M PRN; Protocol PRN Reason: per Hypoglycemia Standing Ord. Octreotide Acetate 500 mcg/ (Sodium Chloride) 501 mls @ 25.05 mls/hr IVCONT .Q20H [facility] Last Admin: 01/24/24 20:28 Dose: 25 mcg/hr, 25.05 mls/hr Documented By: DICKSON Thiamine HCl 100 mg/ Sodium (Chloride) 101 mls @ 202 mls/hr IV DAILY [facility] Last Infusion: 01/25/24 09:31 Dose: Infused Documented By: RICKY Folic Acid 1 mg/ Sodium (Chloride) 50.2 mls @ 100.4 mls/hr IV DAILY [facility] Last Infusion: 01/25/24 09:30 Dose: Infused Documented By: RICKY Omeprazole (Omeprazole 40 Mg Capsule.) 40 mg PO DAILY@0630 [facility] Last Admin: 01/25/24 06:17 Dose: 40 mg Documented By: DICKSON Pharmacy Consult (Consult Rx Etoh Phenob Im/Po) 1 each MISCELLANE ONCE PRN; Protocol PRN Reason: Consult order Phenobarbital (Phenobarbital 15 Mg Tablet) 15 mg PO BID [facility]; Protocol Stop: 01/26/24 21:01 Last Admin: 01/25/24 08:32 Dose: 15 mg Documented By: RICKY Phenobarbital (Phenobarbital 15 Mg Tablet) 15 mg PO DAILY [facility]; Protocol Stop: 01/28/24 09:01 Sodium Chloride (0.9 % Sodium Chloride Flush 3 Ml Syringe) 3 ml IVFLUSH QSHIFT [facility] Last Admin: 01/25/24 08:32 Dose: 3 ml Documented By: RICKY Sucralfate (Sucralfate 1 Gm Tablet) 1 gm PO BIDAC [facility] Last Admin: 01/25/24 06:17 Dose: 1 gm Documented By: DICKSON Labs 01/25/24 06:52 01/24/24 06:48 Labs: Laboratory Results - last 24 hr 01/24/24 01/24/24 01/25/24 15:50 20:01 06:52 MCV 94.7 MCH 31.2 MCHC 32.9 RDW 13.5 Plt Count 39 L MPV 12.6 H Absolute Nucleated RBC 0.000 Nucleated RBC % (auto) 0.0 POC Glucose 121 H 116 H 01/25/24 01/25/24 07:03 11:01 MCV MCH MCHC RDW Plt Count MPV Absolute Nucleated RBC Nucleated RBC % (auto) POC Glucose 109 123 H Microbiology Microbiology Results: Microbiology 01/24/24 01:06 Blood Culture - Preliminary Blood - Venous No growth after 24 hours. 01/24/24 01:06 Blood Culture - Preliminary Blood - Venous No growth after 24 hours. Assessment and Plan (1) Hematemesis: Status: Acute (2) Esophageal varices: Status: Acute (3) Cirrhosis: Status: Acute Plan 53 years old man with past medical history significant for alcoholic liver cirrhosis, varices admitte Hematemesis with acute blood loss anemia. DDx: varices, PUD, gastritis, esophagitis EGD 01/22 esoph varices, gastritis, portal HTN gastropathy -IV PPI to PO PPI + Carafate - IV octreotide stopped -Transfuse as needed for Hgb < 7 -advanced diet to regular -Alcohol cessation, addiction med consult -no NSAID or anticoagulatns Thrombocytopenia -Platlets 39, Transfuse if actively bleeding Fever no obvious source of infection, CXR 01/22 no infiltrate, repeat xray.. Given Ceftriaxone x 1 overnight, repeat CXR to exclude aspiration PNA, empric Augmentin, blood cultures thus far negative x 24 hrs Coagulopathy with Elevated INR secondary to liver disease. INR lower, hold vit k Elevated LFTs secondary to alcohol abuse. Continue to monitor. Cirrhosis of liver--start nadolol, and diuretics see below Alcohol Use desorder. No active withdrawal CIWA protocol, phenobarb protocol, Folic and thiamine replacement HFpEF. some sings of fluid overload, IV Lasix, CXR as above DVT prophylaxis: SCDs Code status: Full need for inpatient: management for upper GI Bleeding, acute blood loss anemia, needing transfusion and need frequent cbc out of bed, ambulate Quality Stroke Does the patient have a stroke diagnosis?: No VTE Prior VTE?: No VTE Risk Level:: Medical - moderate - high VTE Device Contraindication: N/A - Device Ordered VTE Drug Contraindication: Treatment Not Indicated
[2024-01-25] MEDS: Furosemide 40 MG/4 ML VIAL IVPUSH (12:15)
[2024-01-25] MEDS: Amoxicillin/Potassium Clav 875 MG TABLET PO (12:15)
[2024-01-25] MEDS: nadoloL 20 MG TABLET 10 MG PO (12:30)
[2024-01-25 15:59] LABS: Glucose, Whole Blood 118 mg/dL (60-115)
[2024-01-25] MEDS: Octreotide Acetate 500 MCG in 0.9 % Sodium Chloride 500 ML 25.05 MCG IVCONT (16:51)
[2024-01-25 20:13] LABS: Glucose, Whole Blood 119 mg/dL (60-115)
[2024-01-26] VITALS (8 sets, daily range): BP systolic 96–118; BP diastolic 45–68; PULSE 71–80; RESP 17–21; TEMP 36.7–37.3; O2SAT 90–100
[2024-01-26] MEDS: Amoxicillin/Potassium Clav 875 MG TABLET PO ×3 (00:03→21:30)
[2024-01-26] MEDS: 0.9 % Sodium Chloride Flush 3 ML SYRINGE IVFLUSH ×2 (04:36→21:29)
[2024-01-26] MEDS: Omeprazole 40 MG CAPSULE.DR PO (06:27)
[2024-01-26] MEDS: Sucralfate 1 GM TABLET PO ×2 (06:27→16:16)
[2024-01-26 07:53] LABS: Glucose, Whole Blood 153 mg/dL (60-115)
[2024-01-26] MEDS: nadoloL 20 MG TABLET 10 MG PO (10:05)
[2024-01-26] MEDS: PHENobarbitaL 15 MG TABLET PO ×2 (10:05→21:29)
[2024-01-26] MEDS: Folic Acid 1 MG TABLET PO (10:18)
[2024-01-26] MEDS: Thiamine HCL 100 MG TABLET PO (10:19)
[2024-01-26 12:00] LABS: Glucose, Whole Blood 100 mg/dL (60-115)
--- NOTE | 2024-01-26 12:27 | MHC.RECOVRN ---
Met with pt in 467 after Addiction Medicine consult received for chronic alcohol use. 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 Upon evaluation, pt admitted for hematemesis, esophageal varices, and cirrhosis. Pt sitting in chair, awake, alert, engages in conversation. Pt reports feeling okay. Pt reports he drinks 2-3 24 ounce beers daily x years. Pt reports he has been to [facility] x 2. Denies ATS or other treatment for AUD. Pt reports longest period of recovery has been when I'm in correction. In regards to alcohol use, pt is not interested in reducing or abstaining at this time. Pt provided with resources if he is interested in learning more about recovery or where to find support. Pt denies questions or concerns for t/w. Discussed with Namrata Lindo APRN.
--- NOTE | 2024-01-26 13:37 | MHC.CM.PN ---
Pt was eval by PT and they rec. [facility], referral have been made. CM met with pt to ask if he is willing to go to [facility], and he said that he is not, that he wants out , informed.
--- NOTE | 2024-01-26 15:00 | PC.NURSE ---
Addendum entered by Orion Boston RN 01/26/24 18:36: pt refusing fall precautions. md spoke with pt at bedside. pt stated he is homeless and wants to leave. pt does not need O2 upon d/c per md. pt was able to ambulate without aide up and down the halls. O2 sat 88-90% afterwards. md informed. Original Note: pt desat to 87% while in recliner. pt had no c/. md informed
[2024-01-26 16:13] LABS: Glucose, Whole Blood 114 mg/dL (60-115)
[2024-01-26 20:13] LABS: Glucose, Whole Blood 102 mg/dL (60-115)
[2024-01-27 03:12] VITALS: BP 110/53; PULSE 79; RESP 20; TEMP 37.5; O2SAT 92
[2024-01-27] MEDS: Sucralfate 1 GM TABLET PO (07:15)
[2024-01-27] MEDS: Omeprazole 40 MG CAPSULE.DR PO (07:15)
[2024-01-27 07:32] LABS: Glucose, Whole Blood 89 mg/dL (60-115)
[2024-01-27 07:40] VITALS: BP 114/65; PULSE 77; RESP 20; TEMP 36.7; O2SAT 92
[2024-01-27] MEDS: PHENobarbitaL 15 MG TABLET PO (08:47)
[2024-01-27] MEDS: Thiamine HCL 100 MG TABLET PO (08:47)
[2024-01-27] MEDS: Folic Acid 1 MG TABLET PO (08:47)
[2024-01-27] MEDS: nadoloL 20 MG TABLET 10 MG PO (08:47)
[2024-01-27] MEDS: 0.9 % Sodium Chloride Flush 3 ML SYRINGE IVFLUSH (08:48)
--- NOTE | 2024-01-27 08:57 | MHC.CM.PN ---
Addendum entered by Ana Almeida RN 01/27/24 09:11: [facility] ADDRESS AND INFO ADDED TO DC PAPERWORK Addendum entered by Ana Almeida RN 01/27/24 09:10: CM CONTACTED [facility], MEDICAID # NOW ON FILE AND PHARMACIST RAN FAKE SCRIPT AND REPORTS PT SHOULD NOT HAVE COPAYS. 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 Pt was provided w/bus passes. Cm attempted to give pt [employer] resource guide however pt gave it back to , cm offered to call friend/family for pt but pt also declined. 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
[2024-01-27] MEDS: Amoxicillin/Potassium Clav 875 MG TABLET PO (11:14)
--- NOTE | 2024-01-31 11:00 | P.CDIM_ITS ---
PROVIDER RESPONSE TEXT: To clarify, the appropriate diagnosis supported by the clinical indicators: Underweight QUERY TEXT: PHYSICIAN'S DOCUMENTATION REQUEST Date of Query: 01/25/2024 08:47 AM EDT Patient Name: Charbel Delgado Admit Date: 01/22/2024 Dear Alfred Nguyen, A review of the medical record indicates additional documentation may be needed. Please review below and update the documentation accordingly. Clinical Indicators: Height: ( ) 5'6 Weight: ( ) 54.4 kg BMI: ( ) 19.4 Other Clinical Notes Supporting Significance of the BMI: Per Nutritional Risk Assessment 01/23/24: On therapeutic diet PO intake < 50% x5 days If possible, please provide an associated diagnosis related to the abnormal BMI, such as: Underweight Weight loss Cachexia Anorexia BMI is not significant Other (explain) Clinically unable to determine (explain) Thank you, Mariul Torres RN Use of terms such as suspected, likely, concern for, or probable (associated with a specific diagnosi s that is being evaluated, monitored, or treated as if it exists) are acceptable and can be coded in the inpatient se tting, when documented at the time of discharge. Please use your independent medical judgment in providing your response. THIS QUERY IS PART OF THE PERMANENT MEDICAL RECORD
== END 2024-01-27 11:45 | disposition home or self-care (01) | DRG 280 ==
LOC: HO.ED 01-22 02:39 → HO.EDOVER 01-22 03:36 → HO.IMC 01-22 19:26
PROVIDERS: Internal Medicine; Internal Medicine Gastroenterology; Student in an Organized Health Care Education/Training Program; Admitting Provider Internal Medicine; Emergency Provider Emergency Medicine; Visit Provider Internal Medicine
PROC: 0DJ08ZZ Inspection of Upper Intestinal Tract, Via Natural or Artificial Opening Endoscopic (ICD-10-PCS; CPT 43235; principal; 2024-01-23 15:30)
DX: K70.30 Alcoholic cirrhosis of liver without ascites (principal); I85.11 Secondary esophageal varices with bleeding; K76.6 Portal hypertension; D68.4 Acquired coagulation factor deficiency; K29.21 Alcoholic gastritis with bleeding; D62 Acute posthemorrhagic anemia; R63.6 Underweight; Z68.1 Body mass index [BMI] 19.9 or less, adult; D69.59 Other secondary thrombocytopenia; Y90.8 Blood alcohol level of 240 mg/100 ml or more; I50.32 Chronic diastolic (congestive) heart failure; F10.129 Alcohol abuse with intoxication, unspecified; K31.89 Other diseases of stomach and duodenum; Z79.899 Other long term (current) drug therapy
CPT/HCPCS: 36415; 71045; 80048; 80053; 80076; 80307; 82803; 82947; 83605; 83690; 83735; 85025; 85027; 85610; 85730; 86850; 86880; 86900; 86901; 86920; 86922; 87040; 92950; 97162; 99285; C9113; J0131; J0613; J0696; J1940; J2250; J2354; J2405; J2560; J2704; J3010; J3411; J3430; J7120; P9047; P9073

== ENCOUNTER → 2024-01-22 03:31 | Outpatient (BNV) | payer MEDICAID, SELFPAY | PROVIDERS: Admitting Provider Internal Medicine; Emergency Provider Emergency Medicine; Visit Provider Internal Medicine | DX: K92.0 Hematemesis (principal); F10.929 Alcohol use, unspecified with intoxication, unspecified; I85.00 Esophageal varices without bleeding; D62 Acute posthemorrhagic anemia | CPT/HCPCS: 99223; 99232; 99233; 99239; 99499 ==

== ENCOUNTER → 2024-01-22 03:31 | Outpatient (BNV) | payer MEDICAID, SELFPAY | PROVIDERS: Admitting Provider Internal Medicine; Emergency Provider Emergency Medicine; Visit Provider Internal Medicine Gastroenterology | DX: K92.0 Hematemesis (principal); I85.00 Esophageal varices without bleeding | CPT/HCPCS: 43244; 99223; 99232 ==

== ENCOUNTER 2024-01-30 06:14 | Emergency (ER) | payer MEDICAID, SELFPAY ==
[2024-01-30 06:26] VITALS: BP 136/79; BP 220/82; PULSE 109; RESP 18; TEMP 36.8; O2SAT 95; O2SAT 99; BMI 22.6
[2024-01-30 06:40] VITALS: BP 136/75; PULSE 89; RESP 16; TEMP 36.8; O2SAT 99
--- NOTE | 2024-01-30 06:56 | ED.ALCOHOL ---
HPI - Alcohol General Chief Complaint: ETOH/Substance Use Stated Complaint: ETOH Time Seen by Provider: 01/30/24 06:44 Source: patient Mode of arrival: ambulatory Limitations: no limitations History of Present Illness HPI narrative: This is a 54-year-old male history of alcohol use disorder, alcohol withdrawal, hepatic encephalopathy, cirrhosis, thrombocytopenia, presenting to the emergency department after being found sleeping outside by [employer] police, patient reports he had a few drinks, then decided to fall asleep he got woken up and brought to the hospital. He did not want to come. Not SI or HI. Patient denies fall or trauma. He states he feels fine he is just cold. He would like to sleep. Denies chest pain, shortness of breath, headache, vision changes, dizziness, weakness, nausea, vomiting, abdominal pain, joint pain. Related Data Previous Rx's Medication Instructions Recorded amoxicillin 875 mg-potassium 1 tab PO Q12H #10 tabs 01/27/24 clavulanate 125 mg tablet nadolol 20 mg tablet 10 mg PO DAILY #10 tabs 01/27/24 omeprazole 40 mg capsule,delayed 40 mg PO DAILY@0630 #30 caps 01/27/24 release sucralfate 1 gram tablet 1 g PO BIDAC #180 tabs 01/27/24 Allergies Allergy/AdvReac Type Severity Reaction Status Date / Time No Known Allergies Allergy Verified 01/23/24 14:42 [No Known Allergies*] Review of Systems Review of Systems: Yes all other systems are reviewed and are negative PMFSH Past Medical History Attestation statement: The following information was validated with the patient. Source: old records reviewed and nursing notes reviewed Medical History Alcohol withdrawal syndrome Cirrhosis Malnutrition CHF (congestive heart failure) Anemia Aspiration pneumonia Pneumonia Hypomagnesemia Thrombocytopenia Alcoholic liver disease Acute on chronic anemia CHF (congestive heart failure) Anemia Alcohol abuse Surgical History No history of previous surgery Social History Social History Household Members: None Household Members Other:: pt homeless Housing: Homeless Housing Other:: homeless Do you presently have visiting nurse or other home services: No Alcohol intake: current Alcohol intake frequency: 3 or more drinks per day Alcohol type: beer, wine and hard liquor Comment: 1 assist to bathroom Patient Tobacco Use Status: Former Tobacco user Quit Date: 12 years ago Tobacco use type: Cigarette Second Hand Smoke Exposure: No Advance Directives: Yes Advance Directives on File: Yes Advance Directives Date on File: 07/13/23 service: No Physical Exam ED Vital Signs: Vital Signs - 24 hr 01/30/24 06:26 01/30/24 06:40 01/30/24 08:23 Temperature 98.2 F 98.2 F 98.0 F Pulse Rate 89 82 Respiratory Rate 18 16 16 Blood Pressure 136/79 136/75 108/50 L Pulse Oximetry 99 99 95 Oxygen Delivery Method Room Air Room Air Room Air BMI result Body Mass Index 22.6 vss Appearance: Alert.? Oriented X3.? No acute distress.? Head: Normocephalic, atraumatic, no step-offs or deformities Eyes: Pupils equal, round and reactive to light.? CVS: Normal heart rate and rhythm.? Pulses normal.? Respiratory: No respiratory distress.? Breath sounds normal.? Abdomen: Soft and nontender.? Skin: Skin warm and dry.? Normal skin color.? Normal skin turgor.? Extremities: No lower extremity edema.? No calf ttp. 5/5 strength to bilateral upper and lower extremities Back: No midline tenderness, no C-spine tenderness, full range of motion, no CVA tenderness bilaterally Neuro: Oriented X 3.? No motor deficit.? No sensory deficit. CN 2-12 intact . Normal [id number], iaag-zb-[id number] steady tandem gait normal coordination. Course Reevaluation(s) Reevaluation #1: CBC appears to be around patient's baseline with a baseline pancytopenia. Chemistry with low potassium 3.1 oral potassium given to patient. No other acute findings requiring intervention. Ethanol level 99. Patient clinically sober. Taking potassium. Tolerating p.o.. Alert and oriented x4. No medical complaints at this time. Not seeking detox. At this time patient to be discharged. Not SI or HI Educated patient on diagnosis and treatment plan, answered all question, patient verbalizes understanding. At this time patient will be discharged home, advised to return with new or worsening symptoms. Educated on worrisome signs and symptoms and when to return. At this time I feel comfortable discharge home. Medical Decision Making Medical Decision Making [facility] Narrative: [id number] 54-year-old male presents after being found sleeping outside by [employer] Department, patient reports he was drinking and fell asleep. No reported trauma. No SI or HI Physical exam benign History and physical exam concerning for alcohol intoxication versus polysubstance abuse. Unlikely metabolic derangements. No signs of trauma head, neck, chest, abdomen or pelvis. Plan at this time medical clearance. Patient to be discharged when clinically sober. Differential Diagnosis Differential Diagnoses: The differential diagnosis associated with the presentation includes History and physical exam concerning for alcohol intoxication versus polysubstance abuse. Unlikely metabolic derangements. No signs of trauma head, neck, chest, abdomen or pelvis. Admission/Observation Consideration of admission/observation: Escalation of care including admission/observation considered Lab Data MDM Lab Attestation statement: I reviewed the patient's lab results. 01/30/24 08:31 01/30/24 08:31 Labs: Lab Results 01/30/24 Range/Units 08:31 WBC 3.2 L (4.8-10.8) X10*3/uL RBC 2.60 L (4.60-5.80) X10*6/uL Hgb 8.1 L (14.0-18.0) g/dl Hct 24.5 L (42.0-52.0) % MCV 94.2 (80.0-98.0) fL MCH 31.2 (27.0-33.0) pg MCHC 33.1 (31.0-36.0) g/dl RDW 14.7 (11.0-16.0) % Plt Count 47 L (160-400) X10*3/uL MPV 10.8 (9.4-12.4) fL Immature Gran % (Auto) 0.6 H (0.0-0.4) % Neut % (Auto) 52.9 (45-73) % Lymph % (Auto) 26.4 (20-40) % [place] % (Auto) 18.2 H (2-11) % Eos % (Auto) 1.3 (0-4) % Baso % (Auto) 0.6 (0-2) % Lymph # (Auto) 0.8 L (1.2-4.9) X10*3/uL [place] # (Auto) 0.6 (0.1-1.2) X10*3/uL Eos # (Auto) 0.0 (0.0-0.4) X10*3/uL Baso # (Auto) 0.0 (0.0-0.2) X10*3/uL Abs Immat Gran (auto) 0.02 (0.00-0.03) X10*3/uL Absolute Neuts (auto) 1.7 L (2.0-8.3) x10*3/uL Absolute Nucleated RBC 0.000 (0.0-0.012) X10*3/uL Nucleated RBC % (auto) 0.0 (0.0-0.2) /100WBC Sodium 142 (135-145) mmol/L Potassium 3.1 L (3.3-5.1) mmol/L Chloride 113 H (96-108) mmol/L Carbon Dioxide 19 L (22-29) mmol/L Anion Gap 13 (12-20) BUN 10 (9-16) mg/dL Creatinine 0.57 (0.5-1.4) mg/dL Estim Creat Clear Calc 131.5 Estimated GFR > 60 Random Glucose 77 (60-115) mg/dL Calcium 8.2 L (8.4-10.2) mg/dL Magnesium 1.6 (1.6-2.6) mg/dL Total Bilirubin 0.5 (0.0-1.0) mg/dL AST 42 H (5-37) U/L ALT 12 (0-40) U/L Alkaline Phosphatase 115 (39-117) U/L Total Protein 6.4 L (6.5-8.0) g/dL Albumin 3.3 L (3.5-5.0) g/dL Ethyl Alcohol 99 mg/dL Critical Care Time Critical Care Time Critical Care Time: Yes Total Critical Care Time: 35 Attestation: I attest to this time spent taking care of the patient, obtaining history, physical, reviewing labs, imaging, correcting electrolyte abnormality Discharge Plan Discharge Clinical Impression: Alcohol abuse, Acute hypokalemia Patient Disposition: Home, Self-Care Instructions: Abuse of Alcohol (DC) Additional Instructions: Take your medications as prescribed. If you were prescribed antibiotics today, it is important that you take your medication to their entirety, do not skip any doses, do not finish them early. Follow-up with your primary care provider this week. Return to the emergency department with new or worsening symptoms. Such as fevers, chills, chest pain, shortness of breath, nausea, vomiting, dizziness, headache, vision changes, lethargy In case of emergency call 911 Please follow-up with your primary care provider to have repeat potassium. Prescriptions: No Action nadolol 20 mg Tablet 10 mg PO DAILY Qty: 10 0RF Protocol: Hold for SBP/HR < HOLD for SBP < : 90 HOLD for HR < : 60 amoxicillin-pot clavulanate 875-125 mg Tablet 1 tab PO Q12H Qty: 10 0RF sucralfate 1 gram Tablet 1 g PO BIDAC Qty: 180 0RF omeprazole 40 mg Capsule,Delayed Release(Dr/Ec) 40 mg PO DAILY@0630 Qty: 30 0RF Referrals: Physician,Unknown J [Primary Care Provider] - 2 days Stand Alone Forms: Work/School Release
[2024-01-30 08:23] VITALS: BP 108/50; PULSE 82; RESP 16; TEMP 36.7; O2SAT 95
--- NOTE | 2024-01-30 08:29 | PC.NURSE ---
assumed care of pt at 0700, pt resting quietly, vss, tech at bedside obtaining labs.
[2024-01-30 08:35] LABS: MANUAL DIFF FLAG NO
[2024-01-30 08:38] LABS: Basophils Percent Auto 0.6 % (0-2); Eosinophils Percent Auto 1.3 % (0-4); Hematocrit 24.5 % (42.0-52.0); Hemoglobin 8.1 g/dl (14.0-18.0); Imm Gran Abs Auto 0.02 X10*3/uL (0.00-0.03); Imm Gran Pct Auto 0.6 % (0.0-0.4); Lymphocytes Absolute Auto 0.8 X10*3/uL (1.2-4.9); Lymphocytes Percent Auto 26.4 % (20-40); Mean Corpuscular HGB Conc 33.1 g/dl (31.0-36.0); Mean Corpuscular Hemoglobin 31.2 pg (27.0-33.0); Mean Corpuscular Volume 94.2 fL (80.0-98.0); Mean Platelet Volume 10.8 fL (9.4-12.4); Monocytes Absolute Auto 0.6 X10*3/uL (0.1-1.2); Monocytes Percent Auto 18.2 % (2-11); Neutrophils Absolute Auto 1.7 x10*3/uL (2.0-8.3); Neutrophils Percent Auto 52.9 % (45-73); Platelet Count 47 X10*3/uL (160-400); Red Cell Distribution Width 14.7 % (11.0-16.0); White Blood Count 3.2 X10*3/uL (4.8-10.8)
[2024-01-30 08:55] LABS: Alanine Aminotransferase 12 U/L (0-40); Albumin Level 3.3 g/dL (3.5-5.0); Alkaline Phosphatase 115 U/L (39-117); Anion Gap 13 (12-20); Aspartate Amino Transferase 42 U/L (5-37); Bilirubin Total 0.5 mg/dL (0.0-1.0); Blood Urea Nitrogen 10 mg/dL (9-16); Calcium 8.2 mg/dL (8.4-10.2); Carbon Dioxide 19 mmol/L (22-29); Chloride 113 mmol/L (96-108); Creatinine Clr Calc Pharmacy 131.5; Estimated Glomerular Filt Rate > 60; Ethanol 99 mg/dL; Glucose Random 77 mg/dL (60-115); Magnesium 1.6 mg/dL (1.6-2.6); Potassium 3.1 mmol/L (3.3-5.1); Sodium 142 mmol/L (135-145); Total Protein 6.4 g/dL (6.5-8.0)
[2024-01-30 09:22] VITALS: PULSE 83
[2024-01-30] MEDS: Potassium Chloride Packet 20 MEQ PACKET 40 MEQ PO (10:22)
--- NOTE | 2024-01-30 11:22 | PC.NURSE ---
Patient resting quietly on stretcher at this time.
[2024-01-30 12:39] VITALS: BP 113/56; PULSE 91; RESP 18; TEMP 37.4; O2SAT 94
[2024-01-30 12:40] VITALS: BP 113/56; PULSE 91; RESP 18; TEMP 37.4; O2SAT 94
== END 2024-01-30 12:41 | disposition home or self-care (01) ==
PROVIDERS: Physician Assistant; Emergency Provider Emergency Medicine
DX: F10.129 Alcohol abuse with intoxication, unspecified (principal); Y90.4 Blood alcohol level of 80-99 mg/100 ml; E87.6 Hypokalemia; Z79.899 Other long term (current) drug therapy; Z71.41 Alcohol abuse counseling and surveillance of alcoholic
CPT/HCPCS: 36415; 80053; 80307; 83735; 85025; 99283; 99284

== ENCOUNTER 2024-02-01 10:58 | Emergency (ER) | payer MEDICAID, SELFPAY ==
--- NOTE | ~2024-02-01 | XR_ITS ---
EXAMINATION: XR SHOULDER, LEFT CLINICAL INFORMATION: Lateral shoulder pain COMPARISON: Left shoulder 01/17/2024 TECHNIQUE: Four views of the left shoulder. FINDINGS: Compared to the study from 01/17/2024 there is been no interval change. Once again noted is some mild demineralization. Some mild sclerosis is noted near the greater tuberosity. No fractures or dislocations seen. XR/XR shoulder LT min 2V IMPRESSION: No acute finding. Mild degenerative changes.
[2024-02-01 11:05] VITALS: PULSE 94; O2SAT 95
[2024-02-01 11:07] VITALS: BP 127/90; PULSE 90; RESP 16; TEMP 36.5; O2SAT 97
--- NOTE | 2024-02-01 12:10 | ED.EXTPRO ---
HPI - Extremity Problem General Chief complaint: Extremity Injury, Upper Stated complaint: L SHOULDER PAIN Time Seen by Provider: 02/01/24 11:58 Source: patient, EMS and old records reviewed Mode of arrival: EMS Limitations: no limitations History of Present Illness HPI Narrative: 54 yo male with history of alcohol abuse and dependence, alcoholic cirrhosis w/ hx hepatic encephalopathy, throbocytopenia, esophageal varices and UGIB who presents to the ER for evaluation of left shoulder pain that started yesterday. He states he is homeless and sleeps on concrete. He denies any recent trauma but admits to drinking alcohol frequently with lapses in memory. He states the pain is constant in the left shoulder and upper arm, worse with palpation and ROM. No numbness, tingling or weakness in the LUE. No chest pain, SOB, abdominal pain, N/V/D, or headache. MD Complaint: extremity pain and joint pain Onset (ago): day(s) (1) Pain Consistency: constant Location: left and upper extremity Severity scale (1-10): 7 Quality: sharp Radiation: none Relieving factors: immobilization Exacerbating factors: range of motion and palpation Associated symptoms: denies other symptoms Related Data Previous Rx's Medication Instructions Recorded amoxicillin 875 mg-potassium 1 tab PO Q12H #10 tabs 01/27/24 clavulanate 125 mg tablet nadolol 20 mg tablet 10 mg PO DAILY #10 tabs 01/27/24 omeprazole 40 mg capsule,delayed 40 mg PO DAILY@0630 #30 caps 01/27/24 release sucralfate 1 gram tablet 1 g PO BIDAC #180 tabs 01/27/24 Allergies Allergy/AdvReac Type Severity Reaction Status Date / Time No Known Allergies Allergy Verified 01/23/24 14:42 [No Known Allergies*] Review of Systems Review of Systems: Yes all other systems are reviewed and are negative PMFSH Past Medical History Medical History Alcohol withdrawal syndrome Cirrhosis Malnutrition CHF (congestive heart failure) Anemia Aspiration pneumonia Pneumonia Hypomagnesemia Thrombocytopenia Alcoholic liver disease Acute on chronic anemia CHF (congestive heart failure) Anemia Alcohol abuse Surgical History No history of previous surgery Social History Social History Household Members: None Household Members Other:: pt homeless Housing: Homeless Housing Other:: homeless Do you presently have visiting nurse or other home services: No Alcohol intake: current Alcohol intake frequency: 3 or more drinks per day Alcohol type: beer, wine and hard liquor Comment: 1 assist to bathroom Patient Tobacco Use Status: Former Tobacco user Quit Date: 12 years ago Tobacco use type: Cigarette Second Hand Smoke Exposure: No Advance Directives: Yes Advance Directives on File: Yes Advance Directives Date on File: 07/13/23 service: No Physical Exam Vital Signs: Vital Signs: Last Vital Signs Temp 98.0 F 02/01/24 14:28 Pulse 88 02/01/24 14:28 Resp 18 02/01/24 14:28 BP 136/96 H 02/01/24 14:28 Pulse Ox 97 02/01/24 14:28 O2 Del Method Room Air 02/01/24 14:28 BMI result Body Mass Index 0.0 Appearance: Alert. Oriented X3. No acute distress, poorly kempt. Head: normocephalic, atraumatic. Eyes: Pupils equal, round and reactive to light. ENT: Pharynx normal. No tonsillar swelling or exudate. Neck: Normal inspection. Neck supple. CVS: Normal heart rate and rhythm. Pulses normal. Respiratory: No respiratory distress. Breath sounds normal. Abdomen: Softly distended and nontender. +BS x4 Skin: Skin warm and dry. Normal skin color. Normal skin turgor. No rashes. Extremities: No lower extremity edema. No joint swelling. left shoulder normal to inspection. tenderness over the lateral shoulder and proximal humerus. limited abduction due to pain. 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 slow but steady gait. Medical Decision Making Medical Decision Making MDM Narrative: 54-year-old male with extensive medical history including alcohol abuse and dependence presents to the ER for evaluation of left shoulder pain. Reporting that started after sleeping on concrete last night. No other symptoms. He does have tenderness and limited range of motion of the left upper extremity. Doubt cardiac etiology. No need for EKG at this time. X-ray of the shoulder was performed showing some mild degenerative changes. Patient slept between care and seemed in no distress. He is right-hand dominant. Will start on [id number]-koz-[id number] pain control, intermittent doses of Tylenol okay. sling provided for comfort and support, counseling provided. Patient is to follow up with Orthopedics for further evaluation and his PCP. Stable for discharge home. Differential Diagnosis Differential Diagnoses: The differential diagnosis associated with the presentation includes contusion, fracture, muscular pain, bursitis, rotator cuff injury, doubt cardiac or pulmonary etiology Independent Interpretation I performed an independent interpretation of an: Plain X-Ray Interpretation: EXAMINATION: XR SHOULDER, LEFT CLINICAL INFORMATION: Lateral shoulder pain COMPARISON: Left shoulder 01/17/2024 TECHNIQUE: Four views of the left shoulder. FINDINGS: Compared to the study from 01/17/2024 there is been no interval change. Once again noted is some mild demineralization. Some mild sclerosis is noted near the greater tuberosity. No fractures or dislocations seen. XR/XR shoulder LT min 2V IMPRESSION: No acute finding. Mild degenerative changes. Radiology Impression Discussion of test interpretation with radiology: I have reviewed the radiologist's reading. Radiologist Impression: X-ray reviewed, no evidence of acute fracture External Record Review External record reviewed: Outpatient record, Prior outpatient labs and Prior outpatient radiology Prescription Management I considered prescription management with: Pain Medication Chronic Conditions Patient?s care impacted by: Other ( alcoholic liver disease) Critical Care Time Critical Care Time Critical Care Time: No Discharge Plan Discharge Clinical Impression: Acute pain of left shoulder Patient Disposition: Home, Self-Care Instructions: Shoulder Pain (ED) Additional Instructions: Your x-ray today showed mild degenerative changes in the shoulder. no broken bones. Recommend wearing a sling as needed for comfort. Recommend [id number] Tylenol or Motrin as needed for pain. Follow-up with your primary care doctor. Follow-up with orthopedics for further evaluation If you develop new or worsening symptoms call 911 or come back to the ER for further evaluation. Prescriptions: No Action nadolol 20 mg Tablet 10 mg PO DAILY Qty: 10 0RF Protocol: Hold for SBP/HR < HOLD for SBP < : 90 HOLD for HR < : 60 amoxicillin-pot clavulanate 875-125 mg Tablet 1 tab PO Q12H Qty: 10 0RF sucralfate 1 gram Tablet 1 g PO BIDAC Qty: 180 0RF omeprazole 40 mg Capsule,Delayed Release(Dr/Ec) 40 mg PO DAILY@0630 Qty: 30 0RF Referrals: [facility] [Provider Group] (left shoulder pain, limited ROM) Interventions: ED Discharge Assessment Last Done: 02/01/24 14:28 Discharge Date/Time: 02/01/24 14:28
--- NOTE | 2024-02-01 14:27 | PC.NURSE ---
pt sleeping, woke to verbal stimulus, pt c/o pain in his arm with movement, pt was notified that all testing was negative, pt to discharge home
[2024-02-01 14:28] VITALS: BP 136/96; PULSE 88; RESP 18; TEMP 36.7; O2SAT 97
== END 2024-02-01 14:28 | disposition home or self-care (01) ==
PROVIDERS: Emergency Provider Emergency Medicine
DX: M25.512 Pain in left shoulder (principal)
CPT/HCPCS: 73030; 99282; 99283

== ENCOUNTER 2024-02-01 22:45 | Emergency (ER) | payer MEDICAID, SELFPAY ==
[2024-02-01 23:09] VITALS: BP 121/60; BP 168/90; PULSE 88; PULSE 90; RESP 18; TEMP 36.2; O2SAT 95; O2SAT 99; BMI 20.6
[2024-02-01 23:18] VITALS: BP 121/60; PULSE 88; RESP 18; TEMP 36.2; O2SAT 95
--- NOTE | 2024-02-01 23:18 | MHC.EDTECH ---
This tech took over care of patient at 2300,security called to assist with changeover,patient was changed into hospital attire,belongings list completed and locked in [facility].
--- NOTE | 2024-02-01 23:45 | ED_ITS ---
HPI - Alcohol General Chief Complaint: Extremity Problem Stated Complaint: ETOH, SHOULDER PAIN, LEG PAIN Time Seen by Provider: 02/01/24 22:55 Source: patient Mode of arrival: EMS Limitations: no limitations History of Present Illness HPI narrative: Patient alcoholic was seen here earlier today been here multiple times [place] fire [place] after drinking beer as feeling cold no fall want to stay overnight as he is homeless Related Data Previous Rx's Medication Instructions Recorded amoxicillin 875 mg-potassium 1 tab PO Q12H #10 tabs 01/27/24 clavulanate 125 mg tablet nadolol 20 mg tablet 10 mg PO DAILY #10 tabs 01/27/24 omeprazole 40 mg capsule,delayed 40 mg PO DAILY@0630 #30 caps 01/27/24 release sucralfate 1 gram tablet 1 g PO BIDAC #180 tabs 01/27/24 Allergies Allergy/AdvReac Type Severity Reaction Status Date / Time No Known Allergies Allergy Verified 01/23/24 14:42 [No Known Allergies*] Review of Systems Review of Systems: Yes all other systems are reviewed and are negative [facility] Past Medical History Medical History Alcohol withdrawal syndrome Cirrhosis Malnutrition CHF (congestive heart failure) Anemia Aspiration pneumonia Pneumonia Hypomagnesemia Thrombocytopenia Alcoholic liver disease Acute on chronic anemia CHF (congestive heart failure) Anemia Alcohol abuse Surgical History No history of previous surgery Social History Social History Household Members: None Household Members Other:: pt homeless Housing: Homeless Housing Other:: homeless Do you presently have visiting nurse or other home services: No Alcohol intake: current Alcohol intake frequency: 3 or more drinks per day Alcohol type: beer, wine and hard liquor Comment: 1 assist to bathroom Patient Tobacco Use Status: Former Tobacco user Quit Date: 12 years ago Tobacco use type: Cigarette Smoked in Last 30 Days: No Second Hand Smoke Exposure: No Use of substances other than those prescribed or required for medical reasons: No Advance Directives: Yes Advance Directives on File: Yes Advance Directives Date on File: 07/13/23 service: No Physical Exam ED Vital Signs: Vital Signs - 24 hr 02/01/24 23:09 02/01/24 23:18 Temperature 97.2 F 97.2 F Pulse Rate 88 88 Respiratory Rate 18 18 Blood Pressure 121/60 121/60 Pulse Oximetry 95 95 Oxygen Delivery Method Room Air Room Air BMI result Body Mass Index 20.6 Appearance: Alert. Oriented X3. Intoxicated Eyes: PERRLA, No Nystagmus ENT: Pharynx normal. Oral Mucosa moist atraumatic Neck: Normal inspection. Neck supple. CVS: Normal heart rate and rhythm. Pulses normal. Respiratory: No respiratory distress. Equal air entry bilateral, no wheezing/rales/rhonchi Abdomen: Soft and nontender. Bowel sounds are present, no mass palpable, no CVA tenderness Skin: Skin warm and dry. Normal skin color. Normal skin turgor. Extremities: No lower extremity edema. No calf tenderness Neuro: Oriented X 3. No motor deficit. No sensory deficit.No cerebellar signs , cranial nerves II-XII intact Discharge Plan Discharge Clinical Impression: Alcohol abuse Patient Disposition: Still a Patient Prescriptions: No Action nadolol 20 mg Tablet 10 mg PO DAILY Qty: 10 0RF Protocol: Hold for SBP/HR < HOLD for SBP < : 90 HOLD for HR < : 60 amoxicillin-pot clavulanate 875-125 mg Tablet 1 tab PO Q12H Qty: 10 0RF sucralfate 1 gram Tablet 1 g PO BIDAC Qty: 180 0RF omeprazole 40 mg Capsule,Delayed Release(Dr/Ec) 40 mg PO DAILY@0630 Qty: 30 0RF
[2024-02-02 01:50] VITALS: BP 118/68; PULSE 79; RESP 16; TEMP 36.6; O2SAT 95
--- NOTE | 2024-02-02 01:51 | MHC.EDTECH ---
Hourly rounds and vitals completed,patient is resting comfortably at this time.
[2024-02-02 06:00] VITALS: BP 130/69; PULSE 89; RESP 18; TEMP 36.6; O2SAT 96
[2024-02-02 11:31] VITALS: BP 130/59; PULSE 101; RESP 18; TEMP 36.9; O2SAT 96
== END 2024-02-02 11:33 | disposition home or self-care (01) ==
PROVIDERS: Emergency Provider Internal Medicine
DX: F10.10 Alcohol abuse, uncomplicated (principal); Z59.02 Unsheltered homelessness
CPT/HCPCS: 99282; 99284

== ENCOUNTER 2024-02-02 23:14 | Emergency (ER) | payer MEDICAID, SELFPAY ==
[2024-02-02 23:20] VITALS: BP 124/67; PULSE 92; RESP 18; TEMP 36.6; O2SAT 94; BMI 19.4
[2024-02-02 23:56] VITALS: BP 113/65; PULSE 91; RESP 14; TEMP 36.7; O2SAT 95
--- NOTE | 2024-02-03 00:09 | ED.ALCOHOL ---
HPI - Alcohol General Chief Complaint: ETOH/Substance Use Stated Complaint: etoh Time Seen by Provider: 02/03/24 00:03 Source: patient Mode of arrival: EMS Limitations: no limitations History of Present Illness HPI narrative: Patient alcoholic been here multiple times was seen here yesterday comes again after drinking alcohol no fall Related Data Previous Rx's Medication Instructions Recorded amoxicillin 875 mg-potassium 1 tab PO Q12H #10 tabs 01/27/24 clavulanate 125 mg tablet nadolol 20 mg tablet 10 mg PO DAILY #10 tabs 01/27/24 omeprazole 40 mg capsule,delayed 40 mg PO DAILY@0630 #30 caps 01/27/24 release sucralfate 1 gram tablet 1 g PO BIDAC #180 tabs 01/27/24 Allergies Allergy/AdvReac Type Severity Reaction Status Date / Time No Known Allergies Allergy Verified 02/02/24 23:50 [No Known Allergies*] Review of Systems Review of Systems: Yes all other systems are reviewed and are negative PMFSH Past Medical History Medical History Alcohol withdrawal syndrome Cirrhosis Malnutrition CHF (congestive heart failure) Anemia Aspiration pneumonia Pneumonia Hypomagnesemia Thrombocytopenia Alcoholic liver disease Acute on chronic anemia CHF (congestive heart failure) Anemia Alcohol abuse Surgical History No history of previous surgery Social History Social History Household Members: None Household Members Other:: pt homeless Housing: Homeless Housing Other:: homeless Do you presently have visiting nurse or other home services: No Alcohol intake: current Alcohol intake frequency: 3 or more drinks per day Alcohol type: hard liquor Comment: 1 assist to bathroom Patient Tobacco Use Status: Former Tobacco user Quit Date: 12 years ago Tobacco use type: Cigarette Smoked in Last 30 Days: No Second Hand Smoke Exposure: No Use of substances other than those prescribed or required for medical reasons: No Advance Directives: Yes Advance Directives on File: Yes Advance Directives Date on File: 07/13/23 service: No Physical Exam ED Vital Signs: Vital Signs - 24 hr 02/02/24 23:20 02/02/24 23:56 Temperature 97.8 F 98.0 F Pulse Rate 92 91 Respiratory Rate 18 14 Blood Pressure 124/67 113/65 Pulse Oximetry 94 95 Oxygen Delivery Method Room Air Room Air BMI result Body Mass Index 19.4 Appearance: Alert. Oriented X3. No acute distress. etoh++ Eyes: PERRLA, No Nystagmus ENT: Pharynx normal. Oral Mucosa moist Neck: Normal inspection. Neck supple. CVS: Normal heart rate and rhythm. Pulses normal. Respiratory: No respiratory distress. Equal air entry bilateral, no wheezing/rales/rhonchi Abdomen: Soft and nontender. Bowel sounds are present, no mass palpable, no CVA tenderness Skin: Skin warm and dry. Normal skin color. Normal skin turgor. Extremities: No lower extremity edema. No calf tenderness Neuro: Oriented X 3. No motor deficit. No sensory deficit.No cerebellar signs , cranial nerves II-XII intact Medical Decision Making Medical Decision Making MDM Narrative: Patient alcoholic been here multiple times homeless , want to sleep in the ER and gets sober re-evaluate and discharged in a.m. patient refused to go to detox Discharge Plan Discharge Clinical Impression: Alcohol use disorder Patient Disposition: Still a Patient Prescriptions: No Action nadolol 20 mg Tablet 10 mg PO DAILY Qty: 10 0RF Protocol: Hold for SBP/HR < HOLD for SBP < : 90 HOLD for HR < : 60 amoxicillin-pot clavulanate 875-125 mg Tablet 1 tab PO Q12H Qty: 10 0RF sucralfate 1 gram Tablet 1 g PO BIDAC Qty: 180 0RF omeprazole 40 mg Capsule,Delayed Release(Dr/Ec) 40 mg PO DAILY@0630 Qty: 30 0RF
--- NOTE | 2024-02-03 00:13 | PC.NURSE ---
Patient BIBA for eval for alcohol intoxication and left shoulder which he states its from a fall a week prior. Patient rates pain in left shoulder 5/10. CIWA eval completed, patient scored 5. Dr Bae aware. Patient denies detox at this time.
[2024-02-03 03:00] VITALS: BP 93/43; PULSE 94; RESP 16; TEMP 37.1; O2SAT 94
--- NOTE | 2024-02-03 04:37 | PC.NURSE ---
Patient is alert to self, place, situation, cooperative. Patient ambulated to the restroom with a steady gait. CIWA eval completed, patient scored 3.
--- NOTE | 2024-02-03 07:30 | PC.NURSE ---
Resumed care of patient, he is currently a/ox4, able to ambulate to the bathroom, breakfast tray at bedside. Awaiting dispo at this time
[2024-02-03 12:26] VITALS: BP 118/55; PULSE 97; RESP 18; TEMP 37.2; O2SAT 92
[2024-02-03 13:49] VITALS: BP 131/59; PULSE 99; RESP 16; TEMP 37.2; O2SAT 93
[2024-02-03 13:51] VITALS: BP 131/59; PULSE 99; RESP 16; TEMP 37.2; O2SAT 94
== END 2024-02-03 13:52 | disposition home or self-care (01) ==
PROVIDERS: Emergency Provider Internal Medicine
DX: F10.90 Alcohol use, unspecified, uncomplicated (principal); Z59.02 Unsheltered homelessness
CPT/HCPCS: 99284

== ENCOUNTER 2024-02-03 21:27 | Emergency (ER) | payer MEDICAID, SELFPAY ==
[2024-02-03 21:32] VITALS: BP 124/66; BP 140/72; PULSE 64; PULSE 84; RESP 18; TEMP 36.1; O2SAT 95; O2SAT 96; BMI 23.2
--- NOTE | 2024-02-03 22:57 | ED.ALCOHOL ---
HPI - Alcohol General Chief Complaint: ETOH/Substance Use Stated Complaint: ETOH, LEFT SIDE PAIN Time Seen by Provider: 02/03/24 22:41 Source: patient and EMS Mode of arrival: EMS Limitations: other (Intoxicated) History of Present Illness HPI narrative: Patient comes to the emergency room by ambulance. Patient was discharged from the ED earlier this afternoon, patient was here for alcohol intoxication. Patient states that it was raining outside, getting cold and therefore he called the ambulance. Denies SI or HI, no falls. Related Data Previous Rx's Medication Instructions Recorded amoxicillin 875 mg-potassium 1 tab PO Q12H #10 tabs 01/27/24 clavulanate 125 mg tablet nadolol 20 mg tablet 10 mg PO DAILY #10 tabs 01/27/24 omeprazole 40 mg capsule,delayed 40 mg PO DAILY@0630 #30 caps 01/27/24 release sucralfate 1 gram tablet 1 g PO BIDAC #180 tabs 01/27/24 Allergies Allergy/AdvReac Type Severity Reaction Status Date / Time No Known Allergies Allergy Verified 02/03/24 21:32 [No Known Allergies*] Review of Systems Review of Systems: Constitutional : No Weight loss, No Fever, No Chills, No Night Sweats, No Fatigue, No Malaise ENT/Mouth : No Hearing loss, No Ear Pain, No Nasal Congestion, No Sinus Pain, No Hoarseness, No sore throat, No Rhinorrhea, No Swallowing Difficulty Eyes: No Eye Pain, No Swelling, No Redness, No Foreign Body, No Discharge, No Vision Changes Cardiovascular : No Chest Pain, No SOB, No Dyspnea on Exertion, No Orthopnea, No Edema, No Palpitations Respiratory : No Cough, No Sputum, No Wheezing, No Smoke Exposure, No Dyspnea Gastrointestinal : No Nausea, No Vomiting, No Diarrhea, No Constipation, No abdominal Pain, No Hematochezia, No Melena Genitourinary : no irregular bleeding, No Dysuria, No Urinary Frequency, No Hematuria, No Urinary Incontinence, No Urgency, No Flank Pain, No Urinary Flow Changes, No Hesitancy Musculoskeletal : No joint pain, No Myalgias, No Joint Swelling Skin : No Skin Lesions, No rash Neuro : No Weakness, No Numbness, No Paresthesias, No Loss of Consciousness, No Dizziness, No Headache Psych : No Anxiety/Panic, No Depression, No SI/HI/AH/VH, admits to drinking alcohol Heme/lymph: No bleeding, no lymphadenopathy Endocrine : No Polyuria, No Polydipsia, No Temperature Intolerance [facility] Past Medical History Medical History Alcohol withdrawal syndrome Cirrhosis Malnutrition CHF (congestive heart failure) Anemia Aspiration pneumonia Pneumonia Hypomagnesemia Thrombocytopenia Alcoholic liver disease Acute on chronic anemia CHF (congestive heart failure) Anemia Alcohol abuse Surgical History No history of previous surgery Social History Social History Household Members: None Household Members Other:: pt homeless Housing: Homeless Housing Other:: homeless Do you presently have visiting nurse or other home services: No Alcohol intake: current Alcohol intake frequency: 3 or more drinks per day Alcohol type: hard liquor Comment: 1 assist to bathroom Patient Tobacco Use Status: Former Tobacco user Quit Date: 12 years ago Tobacco use type: Cigarette Smoked in Last 30 Days: No Second Hand Smoke Exposure: No Use of substances other than those prescribed or required for medical reasons: No Advance Directives: Yes Advance Directives on File: Yes Advance Directives Date on File: 07/13/23 service: No Physical Exam ED Vital Signs: Vital Signs - 24 hr 02/03/24 21:32 Temperature 96.9 F Pulse Rate 64 Respiratory Rate 18 Blood Pressure 124/66 Pulse Oximetry 96 Oxygen Delivery Method Room Air BMI result Body Mass Index 23.2 Const Other: Appearance: Alert. Oriented X3. No acute distress. Intoxicated, low out but redirectable Eyes: Pupils equal, round and reactive to light. ENT: Pharynx normal. Neck: Normal inspection. Neck supple. No lymph nodes noted. No crepitus CVS: Normal heart rate and rhythm. Pulses normal. Normal S1 and S2 Respiratory: No respiratory distress. Breath sounds normal. No Wheezing. No rales Abdomen: Soft and nontender. No rigidity. No distention. Skin: Skin warm and dry. Normal skin color. Normal skin turgor. Extremities: No lower extremity edema. No Lacerations. No Rash Neuro: Oriented X 3. No motor deficit. No sensory deficit. Moving all extremities. No slurred speech. CN 2 through 12 grossly intact Psych: Calm, cooperative Course Course Course Narrative: -patient alert and oriented x3, intoxicated, calm and cooperative and redirectable -patient's vitals stable -plan: Metabolize to freedom -physician observation started at 23:00 Discharge Plan Discharge Clinical Impression: Alcohol intoxication Patient Disposition: Still a Patient Prescriptions: No Action nadolol 20 mg Tablet 10 mg PO DAILY Qty: 10 0RF Protocol: Hold for SBP/HR < HOLD for SBP < : 90 HOLD for HR < : 60 amoxicillin-pot clavulanate 875-125 mg Tablet 1 tab PO Q12H Qty: 10 0RF sucralfate 1 gram Tablet 1 g PO BIDAC Qty: 180 0RF omeprazole 40 mg Capsule,Delayed Release(Dr/Ec) 40 mg PO DAILY@0630 Qty: 30 0RF
[2024-02-04 05:24] VITALS: BP 103/48; PULSE 90; RESP 16; TEMP 37.7; O2SAT 96
[2024-02-04 10:00] VITALS: BP 124/50; PULSE 90; RESP 18; TEMP 36.9; O2SAT 94
--- NOTE | 2024-02-04 10:10 | PC.NURSE ---
Pt slept for most of morning time, pt now awake eating snack. Pt is alert and oriented, breathing even and unlabored, skin WNL. Pt reports left shoulder pain X multiple days, not new. VSS. Denies any SI/HI
[2024-02-04 12:59] VITALS: BP 141/67; PULSE 87; RESP 18; TEMP -17.7; TEMP 0; O2SAT 93
== END 2024-02-04 13:00 | disposition home or self-care (01) ==
PROVIDERS: Emergency Provider Emergency Medicine
DX: F10.129 Alcohol abuse with intoxication, unspecified (principal); Y90.9 Presence of alcohol in blood, level not specified; Z87.891 Personal history of nicotine dependence
CPT/HCPCS: 99283; 99284

== ENCOUNTER 2024-02-05 00:41 | Emergency (ER) | payer MEDICAID, SELFPAY ==
--- NOTE | 2024-02-05 00:51 | ED_ITS ---
HPI - Alcohol General Chief Complaint: ETOH/Substance Use Stated Complaint: ETOH Time Seen by Provider: 02/05/24 00:49 Source: patient and EMS Mode of arrival: EMS Limitations: no limitations History of Present Illness HPI narrative: Patient comes to the emergency room complaining of alcohol intoxication. Patient was found in the hallways of an apartment complex where he was evicted from. Someone called 911, patient saw the ambulance coming and he a walked right to them and got into the back of the ambulance and asked him to come to the emergency room. On arrival, patient has no complaints other than chronic left shoulder pain that started a few months ago, no new injury. Related Data Previous Rx's Medication Instructions Recorded amoxicillin 875 mg-potassium 1 tab PO Q12H #10 tabs 01/27/24 clavulanate 125 mg tablet nadolol 20 mg tablet 10 mg PO DAILY #10 tabs 01/27/24 omeprazole 40 mg capsule,delayed 40 mg PO DAILY@0630 #30 caps 01/27/24 release sucralfate 1 gram tablet 1 g PO BIDAC #180 tabs 01/27/24 Allergies Allergy/AdvReac Type Severity Reaction Status Date / Time No Known Allergies Allergy Verified 02/03/24 21:32 [No Known Allergies*] Review of Systems Review of Systems: Constitutional : No Weight loss, No Fever, No Chills, No Night Sweats, No Fatigue, No Malaise ENT/Mouth : No Hearing loss, No Ear Pain, No Nasal Congestion, No Sinus Pain, No Hoarseness, No sore throat, No Rhinorrhea, No Swallowing Difficulty Eyes: No Eye Pain, No Swelling, No Redness, No Foreign Body, No Discharge, No Vision Changes Cardiovascular : No Chest Pain, No SOB, No Dyspnea on Exertion, No Orthopnea, No Edema, No Palpitations Respiratory : No Cough, No Sputum, No Wheezing, No Smoke Exposure, No Dyspnea Gastrointestinal : No Nausea, No Vomiting, No Diarrhea, No Constipation, No abdominal Pain, No Hematochezia, No Melena Genitourinary : no irregular bleeding, No Dysuria, No Urinary Frequency, No Hematuria, No Urinary Incontinence, No Urgency, No Flank Pain, No Urinary Flow Changes, No Hesitancy Musculoskeletal : No joint pain, No Myalgias, No Joint Swelling Skin : No Skin Lesions, No rash Neuro : No Weakness, No Numbness, No Paresthesias, No Loss of Consciousness, No Dizziness, No Headache Psych : No Anxiety/Panic, No Depression, No SI/HI/AH/VH, admits to drinking alcohol Heme/Lymph: No Bruising, No Bleeding,No Lymphadenopathy Endocrine : No Polyuria, No Polydipsia, No Temperature Intolerance [facility] Past Medical History Medical History Alcohol withdrawal syndrome Cirrhosis Malnutrition CHF (congestive heart failure) Anemia Aspiration pneumonia Pneumonia Hypomagnesemia Thrombocytopenia Alcoholic liver disease Acute on chronic anemia CHF (congestive heart failure) Anemia Alcohol abuse Surgical History No history of previous surgery Social History Social History Household Members: None Household Members Other:: pt homeless Housing: Homeless Housing Other:: homeless Do you presently have visiting nurse or other home services: No Alcohol intake: current Alcohol intake frequency: 3 or more drinks per day Alcohol type: hard liquor Comment: 1 assist to bathroom Patient Tobacco Use Status: Former Tobacco user Quit Date: 12 years ago Tobacco use type: Cigarette Second Hand Smoke Exposure: No Advance Directives Date on File: 07/13/23 service: No Physical Exam ED Vital Signs: Vital Signs - 24 hr 02/05/24 00:56 Temperature 97.8 F Pulse Rate 94 Respiratory Rate 16 Blood Pressure 108/70 Pulse Oximetry 94 Oxygen Delivery Method Room Air BMI result Body Mass Index 19.4 Const Other: Appearance: Alert. Oriented X3. No acute distress. Intoxicated, redirectable Eyes: Pupils equal, round and reactive to light. ENT: Pharynx normal. Neck: Normal inspection. Neck supple. No lymph nodes noted. No crepitus CVS: Normal heart rate and rhythm. Pulses normal. Normal S1 and S2 Respiratory: No respiratory distress. Breath sounds normal. No Wheezing. No rales Abdomen: Soft and nontender. No rigidity. No distention. Skin: Skin warm and dry. Normal skin color. Normal skin turgor. Extremities: No lower extremity edema. No Lacerations. No Rash Neuro: Oriented X 3. No motor deficit. No sensory deficit. Moving all extremities. No slurred speech. CN 2 through 12 grossly intact Psych: calm, cooperative, intoxicated Course Course Course Narrative: -patient calm, cooperative, intoxicated , a bit loud but coherent and redirectable -patient denies any falls, denies SI or HI -patient refused detox, states that he started of going to meetings that do not work -plan: Metabolize to freedom and discharge Medical Decision Making Medical Decision Making MDM Narrative: Physician observation started at 00:50 Differential Diagnosis Differential Diagnoses: The differential diagnosis associated with the presentation includes (Alcohol intoxication, substance abuse) Discharge Plan Discharge Clinical Impression: Alcohol intoxication Patient Disposition: Still a Patient Prescriptions: No Action nadolol 20 mg Tablet 10 mg PO DAILY Qty: 10 0RF Protocol: Hold for SBP/HR < HOLD for SBP < : 90 HOLD for HR < : 60 amoxicillin-pot clavulanate 875-125 mg Tablet 1 tab PO Q12H Qty: 10 0RF sucralfate 1 gram Tablet 1 g PO BIDAC Qty: 180 0RF omeprazole 40 mg Capsule,Delayed Release(Dr/Ec) 40 mg PO DAILY@0630 Qty: 30 0RF
[2024-02-05 00:56] VITALS: BP 108/70; BP 140/90; PULSE 72; PULSE 94; RESP 16; TEMP 36.6; O2SAT 94; O2SAT 98; BMI 19.4
[2024-02-05 00:58] VITALS: BP 108/70; PULSE 64; RESP 16; TEMP 36.6; O2SAT 94
--- NOTE | 2024-02-05 01:00 | PC.NURSE ---
Pt presented to ED via EMS for ETOH intoxication. 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 Pt is A&Ox4, GCS 15, slightly unsteady on his feet. Security is with the pt to get him changed over at this time. Pt has been seen here recently for left arm pain which is still bothering him. Otherwise, no complaints from the pt.
[2024-02-05 06:48] VITALS: BP 136/65; PULSE 72; RESP 14; TEMP 36.8
== END 2024-02-05 06:49 | disposition home or self-care (01) ==
PROVIDERS: Emergency Provider Emergency Medicine
DX: F10.129 Alcohol abuse with intoxication, unspecified (principal); Y90.9 Presence of alcohol in blood, level not specified; Z59.02 Unsheltered homelessness
CPT/HCPCS: 99284

== ENCOUNTER 2024-02-23 20:59 | Emergency (ER) | payer MEDICAID, SELFPAY ==
[2024-02-23 21:07] VITALS: BP 118/68; PULSE 88; O2SAT 97
[2024-02-23 21:23] VITALS: BP 115/55; PULSE 79; RESP 18; TEMP 36.9; O2SAT 97; BMI 21.0
[2024-02-23 22:43] VITALS: BP 122/61; PULSE 78; RESP 16; TEMP 37.2; O2SAT 95
--- NOTE | 2024-02-23 23:19 | ED.EXTPRO ---
HPI - Extremity Problem General Chief complaint: Extremity Problem Stated complaint: Bilateral foot/ankle pain, ETOH, homeless Time Seen by Provider: 02/23/24 22:57 Source: patient Mode of arrival: EMS Limitations: other (ETOH, poor historian) History of Present Illness HPI Narrative: 54 yo male with PMH of ETOh abuse, anemia, GI bleed in past, states he just left [place] for left leg cellulitis and was there for one week he is now back here was visiting family. He was at homeless nursing home c/o leg foot pain due to walking a lot. He denies fevers, new rash, falls Complaint: extremity pain Onset (ago): day(s) (few) Pain Consistency: constant Location: left, right and lower extremity Quality: burning and aching Radiation: none Relieving factors: rest Exacerbating factors: walking Associated symptoms: denies other symptoms Context: other (frequent walking) Related Data Previous Rx's ?Medication ?Instructions ?Recorded amoxicillin 875 mg-potassium 1 tab PO Q12H #10 tabs 01/27/24 clavulanate 125 mg tablet nadolol 20 mg tablet 10 mg PO DAILY #10 tabs 01/27/24 omeprazole 40 mg capsule,delayed 40 mg PO DAILY@0630 #30 caps 01/27/24 release sucralfate 1 gram tablet 1 g PO BIDAC #180 tabs 01/27/24 Allergies Allergy/AdvReac Type Severity Reaction Status Date / Time No Known Allergies Allergy Verified 02/23/24 21:29 [No Known Allergies*] Review of Systems Review of Systems: Constitutional : No Fever, No Chills ENT/Mouth : No Ear Pain, No Hoarseness, No sore throat Eyes: No Eye Pain, No Swelling, No Redness, No Foreign Body Cardiovascular : No Chest Pain, No SOB Respiratory : No Cough, No Dyspnea Gastrointestinal : No Nausea, No Vomiting, No Diarrhea, No abdominal Pain Genitourinary : No Dysuria, No Hematuria Musculoskeletal : positive joint pain, No Myalgias, No Joint Swelling Skin : No Skin lacerations, No rash Neuro : No Weakness, No Numbness, No Loss of Consciousness, No Dizziness, No Headache All other systems reviewed and are negative PMFSH Past Medical History Attestation statement: The following information was validated with the patient. Source: old records reviewed Medical History Thrombocytopenia Alcohol withdrawal syndrome Cirrhosis Malnutrition CHF (congestive heart failure) Anemia Aspiration pneumonia Pneumonia Hypomagnesemia Thrombocytopenia Alcoholic liver disease Acute on chronic anemia CHF (congestive heart failure) Anemia Alcohol abuse Surgical History No history of previous surgery Social History Social History Household Members: None Household Members Other:: pt homeless Housing: Homeless Housing Other:: homeless Do you presently have visiting nurse or other home services: No Alcohol intake: current Alcohol intake frequency: 3 or more drinks per day Alcohol type: hard liquor Comment: 1 assist to bathroom Patient Tobacco Use Status: Former Tobacco user Quit Date: 12 years ago Tobacco use type: Cigarette Second Hand Smoke Exposure: No Advance Directives: Yes Advance Directives on File: Yes Advance Directives Date on File: 07/13/23 service: No Physical Exam Vital Signs: Vital Signs: Last Vital Signs Temp 99.8 F 02/24/24 05:52 Pulse 86 02/24/24 05:52 Resp 20 02/24/24 05:52 BP 100/51 L 02/24/24 05:52 Pulse Ox 92 02/24/24 05:52 O2 Del Method Room Air 02/24/24 05:52 BMI result Body Mass Index 21.0 Appearance: Alert. Oriented X3. No acute distress. Eyes: Pupils equal, round and reactive to light. ENT: Pharynx normal. atraumatic Neck: Normal inspection. Neck supple. CVS: Normal heart rate and rhythm. Pulses normal. Respiratory: No respiratory distress. Breath sounds normal. Abdomen: Soft and nontender. Skin: Skin warm and dry. Normal skin color. Normal skin turgor. Extremities: trace bilateral pitting ankle edema, both feet warm and well perfused no signs of redness or heat 2+ DP pulses No calf ttp Neuro: Oriented X 3. No motor deficit. No sensory deficit. Course Course Course Narrative: observation care revealed that the patient does not meet medical necessity for hospitalization. final disposition discussed with the patient. The patient completed observation care at 6am. Total time in observation care was 6.5 hours. clinically sober steady gait. Medical Decision Making Medical Decision Making MDM Narrative: 54 yo male with PMH of ETOh abuse, anemia, GI bleed in past here with c/o bilateral foot pain after walking there are no signs of active infection he has great pulses no signs of infection he denies trauma will observe until AM and reassess. He is not toxic appearing. He has sensation intact on exam. Differential Diagnosis Differential Diagnoses: The differential diagnosis associated with the presentation includes overuse, ETOH abuse Admission/Observation Consideration of admission/observation: Escalation of care including admission/observation considered physician observation started at 1131pm pending clinical sobriety and reassessment of patient's complaint Independent Historian Clinical information obtained from an independent historian. History obtained from or confirmed by: EMS External Record Review External record reviewed: Inpatient record Social Determinants Patient?s care significantly limited by Social Determinants of Health including: Inadequate housing, Problems related to primary support group and Unemployment Discharge Plan Discharge Clinical Impression: Chronic foot pain Patient Disposition: Still a Patient Instructions: Arthralgia (ED) Additional Instructions: return for any worsening symptoms, rash, fevers, increased swelling or any other complaints Prescriptions: No Action nadolol 20 mg Tablet 10 mg PO DAILY Qty: 10 0RF Protocol: Hold for SBP/HR < HOLD for SBP < : 90 HOLD for HR < : 60 amoxicillin-pot clavulanate 875-125 mg Tablet 1 tab PO Q12H Qty: 10 0RF sucralfate 1 gram Tablet 1 g PO BIDAC Qty: 180 0RF omeprazole 40 mg Capsule,Delayed Release(Dr/Ec) 40 mg PO DAILY@0630 Qty: 30 0RF Print Language: Bangladeshi
[2024-02-24] VITALS: BP 133/61; PULSE 84; RESP 16; TEMP 37.6; O2SAT 95
[2024-02-24 02:00] VITALS: BP 95/45; PULSE 82; RESP 12; TEMP 37.3; O2SAT 93
[2024-02-24 04:00] VITALS: BP 102/50; PULSE 76; RESP 12; TEMP 37.2; O2SAT 94
[2024-02-24 05:52] VITALS: BP 100/51; PULSE 86; RESP 20; TEMP 37.7; O2SAT 92
[2024-02-24 06:13] VITALS: BP 100/51; PULSE 86; RESP 20; TEMP 37.3; O2SAT 92
== END 2024-02-24 06:16 | disposition home or self-care (01) ==
PROVIDERS: Emergency Provider Emergency Medicine
DX: M79.672 Pain in left foot (principal); M79.671 Pain in right foot; G89.29 Other chronic pain; F10.10 Alcohol abuse, uncomplicated; Z59.01 Sheltered homelessness
CPT/HCPCS: 99284

== ENCOUNTER 2024-02-25 02:29 | Emergency (ER) | payer MEDICAID, SELFPAY ==
[2024-02-25 02:48] VITALS: BP 138/78; PULSE 80; O2SAT 98
[2024-02-25 03:00] VITALS: BP 109/52; PULSE 64; RESP 16; TEMP 36.4; O2SAT 98; BMI 21.4
--- NOTE | 2024-02-25 04:16 | ED.ALCOHOL ---
HPI - Alcohol General Chief Complaint: ETOH/Substance Use Stated Complaint: ETOH Time Seen by Provider: 02/25/24 03:29 Source: patient Mode of arrival: EMS Limitations: no limitations History of Present Illness HPI narrative: Patient alcoholic been here multiple times for alcohol abuse was found wandering on the street by police and brought to the ER no recent fall no signs of injury patient also complaining bilateral foot pain which is going on for a while after he walks as he homeless Related Data Previous Rx's ?Medication ?Instructions ?Recorded amoxicillin 875 mg-potassium 1 tab PO Q12H #10 tabs 01/27/24 clavulanate 125 mg tablet nadolol 20 mg tablet 10 mg PO DAILY #10 tabs 01/27/24 omeprazole 40 mg capsule,delayed 40 mg PO DAILY@0630 #30 caps 01/27/24 release sucralfate 1 gram tablet 1 g PO BIDAC #180 tabs 01/27/24 Allergies Allergy/AdvReac Type Severity Reaction Status Date / Time No Known Allergies Allergy Verified 02/25/24 03:24 [No Known Allergies*] Review of Systems Review of Systems: Yes all other systems are reviewed and are negative PMFSH Past Medical History Medical History Thrombocytopenia Alcohol withdrawal syndrome Cirrhosis Malnutrition CHF (congestive heart failure) Anemia Aspiration pneumonia Pneumonia Hypomagnesemia Thrombocytopenia Alcoholic liver disease Acute on chronic anemia CHF (congestive heart failure) Anemia Alcohol abuse Surgical History No history of previous surgery Social History Social History Household Members: None Household Members Other:: pt homeless Housing: Homeless Housing Other:: homeless Do you presently have visiting nurse or other home services: No Alcohol intake: current Alcohol intake frequency: 3 or more drinks per day Alcohol type: hard liquor Comment: 1 assist to bathroom Patient Tobacco Use Status: Former Tobacco user Quit Date: 12 years ago Tobacco use type: Cigarette Second Hand Smoke Exposure: No Advance Directives: Yes Advance Directives on File: Yes Advance Directives Date on File: 07/13/23 service: No Physical Exam ED Vital Signs: Vital Signs - 24 hr 02/25/24 03:00 02/25/24 06:05 Temperature 97.5 F Pulse Rate 64 Respiratory Rate 16 18 Blood Pressure 109/52 L Pulse Oximetry 98 Oxygen Delivery Method Room Air BMI result Body Mass Index 21.4 Appearance: Alert. Oriented X3. No acute distress. etoh+ Eyes: No pallor or icterus ENT: Pharynx normal. Oral Mucosa moist atraumatic normocephalic Neck: Normal inspection. Neck supple. CVS: Normal heart rate and rhythm. Pulses normal. Respiratory: No respiratory distress. Equal air entry bilateral, no wheezing/rales/rhonchi Abdomen: Soft and nontender. Bowel sounds are present, no mass palpable, no CVA tenderness Skin: Skin warm and dry. Normal skin color. Normal skin turgor. Extremities: No lower extremity edema. No calf tenderness Neuro: Oriented X 3. No motor deficit. Medical Decision Making Medical Decision Making [facility] Narrative: Patient alcoholic ambulatory in the ED if comes here frequently for same no signs of injury will discharge patient home stable vitals Discharge Plan Discharge Clinical Impression: Alcoholic intoxication Patient Disposition: Home, Self-Care Instructions: Abuse of Alcohol (ED) Additional Instructions: Stop drinking alcohol and follow detox Prescriptions: No Action nadolol 20 mg Tablet 10 mg PO DAILY Qty: 10 0RF Protocol: Hold for SBP/HR < HOLD for SBP < : 90 HOLD for HR < : 60 amoxicillin-pot clavulanate 875-125 mg Tablet 1 tab PO Q12H Qty: 10 0RF sucralfate 1 gram Tablet 1 g PO BIDAC Qty: 180 0RF omeprazole 40 mg Capsule,Delayed Release(Dr/Ec) 40 mg PO DAILY@0630 Qty: 30 0RF Print Language: St Helen[place]
[2024-02-25 06:05] VITALS: RESP 18
[2024-02-25 06:58] VITALS: BP 00/0; PULSE 0; RESP 0; TEMP -17.7; TEMP 0
== END 2024-02-25 07:01 | disposition home or self-care (01) ==
PROVIDERS: Emergency Provider Internal Medicine
DX: F10.129 Alcohol abuse with intoxication, unspecified (principal); Y90.9 Presence of alcohol in blood, level not specified; Z59.02 Unsheltered homelessness
CPT/HCPCS: 99282; 99284

== ENCOUNTER 2024-02-25 17:03 | Emergency (ER) | payer MEDICAID, SELFPAY ==
[2024-02-25 17:06] VITALS: BP 112/68; PULSE 76; O2SAT 95
[2024-02-25 17:11] VITALS: BP 119/63; PULSE 79; RESP 19; O2SAT 94
[2024-02-25 17:18] VITALS: BP 119/63; PULSE 94; RESP 16; TEMP 36.4; O2SAT 98; BMI 22.6
--- NOTE | 2024-02-25 19:32 | PC.NURSE ---
Assumed care of pt. Pt lying on stretcher, respirations even and unlabored, no acute distress at this time. pendign provider.
[2024-02-25 19:39] VITALS: BP 105/50; PULSE 82; RESP 16; O2SAT 93
--- NOTE | 2024-02-25 19:51 | ED.GENADULT ---
HPI - General Adult General Chief complaint: ETOH/Substance Use Stated complaint: ETOH Time Seen by Provider: 02/25/24 19:48 History of Present Illness HPI narrative: Patient is a chronic alcoholic who has been coming to the emergency room with remarkable frequency over the last 2 months. He is homeless and is often intoxicated in public. Today passes by called 911 because he seemed unable to stand. Paramedics arrived. The patient was willing to come to the hospital but had no complaints. On arrival here he only wants to go to sleep. Related Data Previous Rx's ?Medication ?Instructions ?Recorded amoxicillin 875 mg-potassium 1 tab PO Q12H #10 tabs 01/27/24 clavulanate 125 mg tablet nadolol 20 mg tablet 10 mg PO DAILY #10 tabs 01/27/24 omeprazole 40 mg capsule,delayed 40 mg PO DAILY@0630 #30 caps 01/27/24 release sucralfate 1 gram tablet 1 g PO BIDAC #180 tabs 01/27/24 Allergies Allergy/AdvReac Type Severity Reaction Status Date / Time No Known Allergies Allergy Verified 02/25/24 17:20 [No Known Allergies*] PMFSH Past Medical History Medical History Thrombocytopenia Alcohol withdrawal syndrome Cirrhosis Malnutrition CHF (congestive heart failure) Anemia Aspiration pneumonia Pneumonia Hypomagnesemia Thrombocytopenia Alcoholic liver disease Acute on chronic anemia CHF (congestive heart failure) Anemia Alcohol abuse Surgical History No history of previous surgery Social History Social History Household Members: None Household Members Other:: pt homeless Housing: Homeless Housing Other:: homeless Do you presently have visiting nurse or other home services: No Alcohol intake: current Alcohol intake frequency: 3 or more drinks per day Alcohol type: hard liquor Comment: 1 assist to bathroom Patient Tobacco Use Status: Former Tobacco user Quit Date: 12 years ago Tobacco use type: Cigarette Smoked in Last 30 Days: Yes Second Hand Smoke Exposure: No Use of substances other than those prescribed or required for medical reasons: Refusing to respond Advance Directives: Yes Advance Directives on File: Yes Advance Directives Date on File: 07/13/23 service: No Physical Exam ED Vital Signs: Vital Signs - 24 hr 02/25/24 17:11 02/25/24 17:18 02/25/24 19:39 Temperature 97.5 F Pulse Rate 79 94 82 Respiratory Rate 19 16 16 Blood Pressure 119/63 119/63 105/50 L Pulse Oximetry 94 98 93 Oxygen Delivery Method Room Air Room Air Room Air 02/26/24 00:23 Temperature Pulse Rate 85 Respiratory Rate 14 Blood Pressure 93/39 L Pulse Oximetry 92 Oxygen Delivery Method Room Air BMI result Body Mass Index 22.6 Const Other: The patient is a disheveled, poorly kempt 54-year-old who was sleepy but arousable and seems intoxicated. HENMT Other: No acute signs of trauma to the face. Mucous membranes moist. Eyes Other: No scleral icterus Neck Other: Moving his neck easily Resp Effort & Inspection: normal respiratory effort Auscultation: clear to auscultation bilaterally Cardio Rate: regular rate Rhythm: regular rhythm Heart sounds: S1 normal heart sound present and S2 normal heart sound present GI Other: Abdomen is soft and nontender Skin Other: Skin is dry and unremarkable Neuro Other: The patient was sleepy and seemed intoxicated. No lateralizing findings. Extrem Other: No signs of acute injuries to the extremities. Medical Decision Making Medical Decision Making [facility] Narrative: The patient is a chronic alcoholic who is homeless and who returns to the emergency room after bystanders called 911 because he seemed to be intoxicated in public. He has not exhibiting any obvious signs of complications. He will be allowed to sleep in the emergency room and I anticipate he will be discharged in the morning. Discharge Plan Discharge Clinical Impression: Alcoholic intoxication, Alcoholism Patient Disposition: Still a Patient Additional Instructions: Please try to limit your alcohol use to the evening. Please follow up with your regular doctor Prescriptions: No Action nadolol 20 mg Tablet 10 mg PO DAILY Qty: 10 0RF Protocol: Hold for SBP/HR < HOLD for SBP < : 90 HOLD for HR < : 60 amoxicillin-pot clavulanate 875-125 mg Tablet 1 tab PO Q12H Qty: 10 0RF sucralfate 1 gram Tablet 1 g PO BIDAC Qty: 180 0RF omeprazole 40 mg Capsule,Delayed Release(Dr/Ec) 40 mg PO DAILY@0630 Qty: 30 0RF Referrals: [facility] [Provider Group] (Alcoholism) Print Language: Slovak
[2024-02-26 00:23] VITALS: BP 93/39; PULSE 85; RESP 14; O2SAT 92
[2024-02-26 07:13] VITALS: BP 143/64; PULSE 90; RESP 16; TEMP 36.6; O2SAT 95
[2024-02-26 07:17] VITALS: BP 143/64; PULSE 90; RESP 16; TEMP 36.6; O2SAT 95
== END 2024-02-26 07:19 | disposition home or self-care (01) ==
PROVIDERS: Emergency Provider Emergency Medicine Emergency Medical Services
DX: F10.229 Alcohol dependence with intoxication, unspecified (principal); Y90.9 Presence of alcohol in blood, level not specified; Z59.02 Unsheltered homelessness
CPT/HCPCS: 99284

== ENCOUNTER 2024-02-28 23:27 | Emergency (ER) | payer MEDICAID, SELFPAY ==
--- NOTE | ~2024-02-28 | XR_ITS ---
EXAMINATION: XR ANKLE, LEFT CLINICAL INFORMATION: Left ankle pain with soft tissue swelling COMPARISON: None available. TECHNIQUE: AP, lateral, and mortise views of the left ankle. FINDINGS: There is marked soft tissue swelling present. Vascular calcifications are seen. No fracture. Alignment is anatomic. No erosions. Joint spaces are maintained. XR/XR ankle LT min 3V IMPRESSION: Marked soft tissue swelling. No acute fractures.
[2024-02-28 23:35] VITALS: BP 142/70; PULSE 68; O2SAT 98
[2024-02-28 23:36] VITALS: BP 116/52; PULSE 78; RESP 16; TEMP 36.6; O2SAT 94; BMI 22.2
--- NOTE | 2024-02-28 23:50 | ED.ALCOHOL ---
HPI - Alcohol General Chief Complaint: ETOH/Substance Use Stated Complaint: ETOH LEFT KNEE PAIN Time Seen by Provider: 02/28/24 23:49 Source: patient Mode of arrival: EMS Limitations: no limitations History of Present Illness HPI narrative: 54-year-old male with a history of alcohol use disorder, esophageal varices, hepatic encephalopathy, chronic anemia who is well-known to the emergency department presents for evaluation of left ankle swelling, feeling very cold, and alcohol intoxication. Patient states he has been having pain in his left ankle for 3-4 days. He states his left ankle is swollen. He does not recount any injury. Patient states that he did drink alcohol prior to coming to the emergency department. Patient was seen frequently here in the emergency department for alcohol use disorder, acute alcohol intoxication and other complaints. Related Data Previous Rx's ?Medication ?Instructions ?Recorded amoxicillin 875 mg-potassium 1 tab PO Q12H #10 tabs 01/27/24 clavulanate 125 mg tablet nadolol 20 mg tablet 10 mg PO DAILY #10 tabs 01/27/24 omeprazole 40 mg capsule,delayed 40 mg PO DAILY@0630 #30 caps 01/27/24 release sucralfate 1 gram tablet 1 g PO BIDAC #180 tabs 01/27/24 Allergies Allergy/AdvReac Type Severity Reaction Status Date / Time No Known Allergies Allergy Verified 02/28/24 23:37 [No Known Allergies*] Review of Systems Review of Systems: Yes all other systems are reviewed and are negative [facility] Past Medical History Medical History Thrombocytopenia Alcohol withdrawal syndrome Cirrhosis Malnutrition CHF (congestive heart failure) Anemia Aspiration pneumonia Pneumonia Hypomagnesemia Thrombocytopenia Alcoholic liver disease Acute on chronic anemia CHF (congestive heart failure) Anemia Alcohol abuse Surgical History No history of previous surgery Social History Social History Household Members: None Household Members Other:: pt homeless Housing: Homeless Housing Other:: homeless Do you presently have visiting nurse or other home services: No Alcohol intake: current Alcohol intake frequency: 3 or more drinks per day Alcohol type: beer Comment: 1 assist to bathroom Patient Tobacco Use Status: Former Tobacco user Quit Date: 12 years ago Tobacco use type: Cigarette Smoked in Last 30 Days: Yes Second Hand Smoke Exposure: No Use of substances other than those prescribed or required for medical reasons: No Advance Directives: Yes Advance Directives on File: Yes Advance Directives Date on File: 07/13/23 service: No Physical Exam ED Vital Signs: Vital Signs - 24 hr 02/28/24 23:36 Temperature 97.8 F Pulse Rate 78 Respiratory Rate 16 Blood Pressure 116/52 L Pulse Oximetry 94 Oxygen Delivery Method Room Air BMI result Body Mass Index 22.2 Vital signs were normal Exam: General: Patient is unkempt, he is awake and alert, does have a strong odor of alcohol on his breath Head: Normocephalic, atraumatic EENT: PERRL, Lids normal, sclera normal, conjunctiva normal, nose normal , ears normal, throat without erythema or exudates Neck: Supple, no adenopathy Lung: breath sounds symmetric, no wheezing, rales or rhonchi Chest: symmetric movement, nontender Heart: regular rate and rhythm, normal S1, S2 no murmurs or rubs Abdomen: soft, non-tender, nondistended, normal bowel sounds Back: no vertebral tenderness, no CVAT Extremities: Patient does have soft tissue deformity of his medial and lateral malleolus of his ankle with tenderness palpation. Neuro: Awake, alert, oriented, normal speech, cranial nerves intact, moves all extremities symmetrically Medical Decision Making Medical Decision Making [facility] Narrative: 54-year-old male with a history of alcohol use disorder, esophageal varices, hepatic encephalopathy, chronic anemia who is well-known to the emergency department presents for evaluation of left ankle swelling, feeling very cold, and alcohol intoxication. Patient complains of left ankle pain x3 days. Physical examination is consistent with alcohol intoxication. He did have soft tissue swelling of his left ankle. Differential diagnosis: ?Includes but is not limited to alcohol intoxication, left ankle sprain, left ankle fracture Following evaluation was ordered: Two-view x-ray of the left ankle Course: Start physician observation The patient's left ankle x-rays revealed no acute fracture, patient's findings are consistent with a sprain. Patient is acutely intoxicated and will need to be observed in the emergency department until he is sober and can be discharged safely. At the end of my shift, patient's care was turned over to my colleague, Dr. Goldsmith. Admission/Observation Consideration of admission/observation: Escalation of care including admission/observation considered Independent Interpretation I performed an independent interpretation of an: Plain X-Ray Interpretation: My independent interpretation of the patient's left ankle x-ray is as follows: No acute fracture seen Radiology Impression Discussion of test interpretation with radiology: I have reviewed the radiologist's reading. Radiologist Impression: XR ankle LT min 3V IMPRESSION: Marked soft tissue swelling. No acute fractures. Dictated By: Xu Dotson MD Chronic Conditions Patient?s care impacted by: Other (Chronic alcohol use disorder) Social Determinants Patient?s care significantly limited by Social Determinants of Health including: Inadequate housing and Other Social Determinant of Health (Chronic alcohol use disorder) Discharge Plan Discharge Clinical Impression: Alcohol use disorder, Alcohol intoxication, Left ankle sprain Patient Disposition: Still a Patient Additional Instructions: Continue taking medications as prescribed by your providers You should consider getting into alcohol detox program Follow-up with your doctor in 2 days. Please return to the emergency department if your symptoms get worse or if you develop any symptoms that are concerning to you. Prescriptions: No Action nadolol 20 mg Tablet 10 mg PO DAILY Qty: 10 0RF Protocol: Hold for SBP/HR < HOLD for SBP < : 90 HOLD for HR < : 60 amoxicillin-pot clavulanate 875-125 mg Tablet 1 tab PO Q12H Qty: 10 0RF sucralfate 1 gram Tablet 1 g PO BIDAC Qty: 180 0RF omeprazole 40 mg Capsule,Delayed Release(Dr/Ec) 40 mg PO DAILY@0630 Qty: 30 0RF Print Language: German
[2024-02-29 02:56] VITALS: RESP 16
[2024-02-29] MEDS: Acetaminophen 325 MG TABLET 975 MG PO (03:48)
[2024-02-29 03:50] VITALS: BP 100/47; PULSE 88; RESP 16; TEMP 36.9; O2SAT 93
[2024-02-29 05:29] VITALS: BP 101/51; PULSE 79; RESP 16; TEMP 37.2; O2SAT 92
[2024-02-29 06:29] VITALS: BP 112/56; PULSE 76; RESP 18; TEMP 36.9; O2SAT 93
== END 2024-02-29 06:31 | disposition home or self-care (01) ==
PROVIDERS: Emergency Provider Emergency Medicine Emergency Medical Services
DX: S93.402A Sprain of unspecified ligament of left ankle, initial encounter (principal); F10.129 Alcohol abuse with intoxication, unspecified; Y90.9 Presence of alcohol in blood, level not specified; X58.XXXA Exposure to other specified factors, initial encounter; Y93.9 Activity, unspecified; Y92.9 Unspecified place or not applicable; Y99.9 Unspecified external cause status
CPT/HCPCS: 73610; 99283; 99284

== ENCOUNTER 2024-02-29 21:45 | Emergency (ER) | payer MEDICAID, SELFPAY ==
--- NOTE | ~2024-02-29 | XR_ITS ---
EXAMINATION: Left foot and ankle x-ray CLINICAL INFORMATION: Unable to bear weight. Swelling. COMPARISON: Previous left ankle x-ray from yesterday TECHNIQUE: 3 views of the left foot and 3 views of the left ankle FINDINGS: Left foot: Hallux valgus deformity at the first MTP joint. Bone alignment otherwise normal. No fracture or dislocation. Osteopenia. Atherosclerotic disease. Left ankle: Bone alignment is normal. No definite fracture seen. The bones are osteopenic. There is an oblique line of increased sclerosis seen in the distal medial tibia. It is uncertain whether this is related to osteopenia or could represent stress fracture. No ankle joint effusion. The ankle mortise is normal. Diffuse soft tissue swelling of the ankle. Atherosclerotic disease. XR/XR foot LT min 3V IMPRESSION: Left foot: Hallux valgus deformity at the first MTP joint. Osteopenia. Left ankle: Severe soft tissue swelling. Osteopenia. Oblique line of increased sclerosis in the distal medial tibia. There is uncertain whether this is related to osteopenia or could represent stress injury. This could be further evaluated with a bone scan or cross-sectional imaging if clinically indicated.
--- NOTE | ~2024-02-29 | XR_ITS ---
EXAMINATION: Left foot and ankle x-ray CLINICAL INFORMATION: Unable to bear weight. Swelling. COMPARISON: Previous left ankle x-ray from yesterday TECHNIQUE: 3 views of the left foot and 3 views of the left ankle FINDINGS: Left foot: Hallux valgus deformity at the first MTP joint. Bone alignment otherwise normal. No fracture or dislocation. Osteopenia. Atherosclerotic disease. Left ankle: Bone alignment is normal. No definite fracture seen. The bones are osteopenic. There is an oblique line of increased sclerosis seen in the distal medial tibia. It is uncertain whether this is related to osteopenia or could represent stress fracture. No ankle joint effusion. The ankle mortise is normal. Diffuse soft tissue swelling of the ankle. Atherosclerotic disease. XR/XR ankle LT min 3V IMPRESSION: Left foot: Hallux valgus deformity at the first MTP joint. Osteopenia. Left ankle: Severe soft tissue swelling. Osteopenia. Oblique line of increased sclerosis in the distal medial tibia. There is uncertain whether this is related to osteopenia or could represent stress injury. This could be further evaluated with a bone scan or cross-sectional imaging if clinically indicated.
[2024-02-29 21:50] VITALS: BP 168/80; PULSE 92; O2SAT 95
[2024-02-29 22:01] VITALS: BP 149/64; PULSE 83; RESP 16; TEMP 36.6; O2SAT 95; BMI 19.4
== END 2024-03-01 01:45 | disposition left against medical advice (07) ==
PROVIDERS: Emergency Provider Emergency Medicine
DX: M25.572 Pain in left ankle and joints of left foot (principal); M25.571 Pain in right ankle and joints of right foot
CPT/HCPCS: 73610; 73630; 99281; 99283

== ENCOUNTER 2024-03-01 22:43 | Emergency (ER) | payer MEDICAID, SELFPAY ==
[2024-03-01 22:52] VITALS: BP 110/68; PULSE 90; O2SAT 95
[2024-03-01 23:00] VITALS: BP 111/63; PULSE 68; RESP 18; TEMP 36.9; O2SAT 97; BMI 21.9
--- NOTE | 2024-03-02 00:02 | ED_ITS ---
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 Patient also complaining of left ankle pain and swelling. Patient denies any new injuries. Patient reports that he did not fall today, denies headache, no chest pain or shortness of breath. No nausea or vomiting Related Data Previous Rx's ?Medication ?Instructions ?Recorded amoxicillin 875 mg-potassium 1 tab PO Q12H #10 tabs 01/27/24 clavulanate 125 mg tablet nadolol 20 mg tablet 10 mg PO DAILY #10 tabs 01/27/24 omeprazole 40 mg capsule,delayed 40 mg PO DAILY@0630 #30 caps 01/27/24 release sucralfate 1 gram tablet 1 g PO BIDAC #180 tabs 01/27/24 Allergies Allergy/AdvReac Type Severity Reaction Status Date / Time No Known Allergies Allergy Verified 03/01/24 23:01 [No Known Allergies*] Review of Systems Review of Systems: Constitutional : No Weight loss, No Fever, No Chills, No Night Sweats, No Fatigue, No Malaise ENT/Mouth : No Hearing loss, No Ear Pain, No Nasal Congestion, No Sinus Pain, No Hoarseness, No sore throat, No Rhinorrhea, No Swallowing Difficulty Eyes: No Eye Pain, No Swelling, No Redness, No Foreign Body, No Discharge, No Vision Changes Cardiovascular : No Chest Pain, No SOB, No Dyspnea on Exertion, No Orthopnea, No Edema, No Palpitations Respiratory : No Cough, No Sputum, No Wheezing, No Smoke Exposure, No Dyspnea Gastrointestinal : No Nausea, No Vomiting, No Diarrhea, No Constipation, No abdominal Pain, No Hematochezia, No Melena Genitourinary : no irregular bleeding, No Dysuria, No Urinary Frequency, No Hematuria, No Urinary Incontinence, No Urgency, No Flank Pain, No Urinary Flow Changes, No Hesitancy Musculoskeletal : Complaining of left ankle swelling, No Myalgias, No Joint Swelling Skin : No Skin Lesions, No rash Neuro : No Weakness, No Numbness, No Paresthesias, No Loss of Consciousness, No Dizziness, No Headache Psych : No Anxiety/Panic, No Depression, No SI/HI/AH/VH, admits to drinking alcohol Heme/Lymph: No Bruising, No Bleeding,No Lymphadenopathy Endocrine : No Polyuria, No Polydipsia, No Temperature Intolerance [facility] Past Medical History Medical History Thrombocytopenia Alcohol withdrawal syndrome Cirrhosis Malnutrition CHF (congestive heart failure) Anemia Aspiration pneumonia Pneumonia Hypomagnesemia Thrombocytopenia Alcoholic liver disease Acute on chronic anemia CHF (congestive heart failure) Anemia Alcohol abuse Surgical History No history of previous surgery Social History Social History Household Members: None Household Members Other:: pt homeless Housing: Homeless Housing Other:: homeless Do you presently have visiting nurse or other home services: No Alcohol intake: current Alcohol intake frequency: 3 or more drinks per day Alcohol type: beer Comment: 1 assist to bathroom Patient Tobacco Use Status: Former Tobacco user Quit Date: 12 years ago Tobacco use type: Cigarette Second Hand Smoke Exposure: No Advance Directives: Yes Advance Directives on File: Yes Advance Directives Date on File: 07/13/23 service: No Physical Exam ED Vital Signs: Vital Signs - 24 hr 03/01/24 23:00 Temperature 98.4 F Pulse Rate 68 Respiratory Rate 18 Blood Pressure 111/63 Pulse Oximetry 97 Oxygen Delivery Method Room Air BMI result Body Mass Index 21.9 Const Other: Appearance: Alert. Oriented X3. No acute distress. Eyes: Pupils equal, round and reactive to light. ENT: Pharynx normal. Neck: Normal inspection. Neck supple. No lymph nodes noted. No crepitus CVS: Normal heart rate and rhythm. Pulses normal. Normal S1 and S2 Respiratory: No respiratory distress. Breath sounds normal. No Wheezing. No rales Abdomen: Soft and nontender. No rigidity. No distention. Skin: Skin warm and dry. Normal skin color. Normal skin turgor. Extremities: Patient's left ankle is swollen. Neuro: Oriented X 3. No motor deficit. No sensory deficit. Moving all extremities. No slurred speech. CN 2 through 12 grossly intact Psych: calm, cooperative, normal affect Medical Decision Making Medical Decision Making [facility] Narrative: -patient's left ankle is swollen. No signs of cellulitis. Patient was evaluated yesterday, x-ray of the ankle shows no fracture. Diagnosed with an ankle sprain -patient is not SI or HI. Care team consult pending. -patient's ankle has been wrapped -plan: Metabolize to freedom and discharge Physician observation started at 00:16 Differential Diagnosis Differential Diagnoses: The differential diagnosis associated with the presentation includes (Alcohol intoxication, ankle sprain) Discharge Plan Discharge Clinical Impression: Alcohol intoxication, Ankle sprain Patient Disposition: Home, Self-Care Instructions: Ankle Sprain (ED), Alcohol Intoxication (ED), Abuse of Alcohol (ED) Additional Instructions: Please follow-up with your primary care physician tomorrow. If you have any wo rsening or new symptoms, please return to the emergency room or call 911 Prescriptions: No Action nadolol 20 mg Tablet 10 mg PO DAILY Qty: 10 0RF Protocol: Hold for SBP/HR < HOLD for SBP < : 90 HOLD for HR < : 60 amoxicillin-pot clavulanate 875-125 mg Tablet 1 tab PO Q12H Qty: 10 0RF sucralfate 1 gram Tablet 1 g PO BIDAC Qty: 180 0RF omeprazole 40 mg Capsule,Delayed Release(Dr/Ec) 40 mg PO DAILY@0630 Qty: 30 0RF Print Language: Maltese
[2024-03-02 02:49] VITALS: BP 100/54; PULSE 87; RESP 16; TEMP 37.3; O2SAT 95
[2024-03-02 04:58] VITALS: BP 97/43; PULSE 88; RESP 16; TEMP 37; O2SAT 90
[2024-03-02 14:09] VITALS: BP 144/74; PULSE 99; RESP 16; TEMP 36; O2SAT 95
== END 2024-03-02 14:10 | disposition home or self-care (01) ==
PROVIDERS: Emergency Provider Emergency Medicine
DX: S93.402A Sprain of unspecified ligament of left ankle, initial encounter (principal); F10.129 Alcohol abuse with intoxication, unspecified; Y90.9 Presence of alcohol in blood, level not specified; X58.XXXA Exposure to other specified factors, initial encounter; Y93.9 Activity, unspecified; Y92.9 Unspecified place or not applicable; Y99.9 Unspecified external cause status; Z59.02 Unsheltered homelessness
CPT/HCPCS: 99282; 99284

== ENCOUNTER 2024-03-02 21:32 | Emergency (ER) | payer MEDICAID, SELFPAY ==
[2024-03-02 21:43] VITALS: BP 121/53; BP 180/90; PULSE 86; PULSE 88; RESP 16; TEMP 36.8; O2SAT 95; O2SAT 98; BMI 22.6
--- NOTE | 2024-03-03 01:52 | ED.ALCOHOL ---
HPI - Alcohol General Chief Complaint: ETOH/Substance Use Stated Complaint: swollen/strained ankle, seen earlier today Time Seen by Provider: 03/03/24 01:45 Source: patient and EMS Mode of arrival: EMS Limitations: no limitations History of Present Illness HPI narrative: Patient comes to the emergency room complaining of alcohol intoxication. Patient was found outside the [employer] store. Patient denies falling hitting his head or losing consciousness. Patient was discharged from this facility earlier this morning. Patient has no new complaints, ongoing left shoulder pain and and cocaine. Related Data Previous Rx's ?Medication ?Instructions ?Recorded amoxicillin 875 mg-potassium 1 tab PO Q12H #10 tabs 01/27/24 clavulanate 125 mg tablet nadolol 20 mg tablet 10 mg PO DAILY #10 tabs 01/27/24 omeprazole 40 mg capsule,delayed 40 mg PO DAILY@0630 #30 caps 01/27/24 release sucralfate 1 gram tablet 1 g PO BIDAC #180 tabs 01/27/24 Allergies Allergy/AdvReac Type Severity Reaction Status Date / Time No Known Allergies Allergy Verified 03/02/24 21:46 [No Known Allergies*] Review of Systems Review of Systems: Constitutional : No Weight loss, No Fever, No Chills, No Night Sweats, No Fatigue, No Malaise ENT/Mouth : No Hearing loss, No Ear Pain, No Nasal Congestion, No Sinus Pain, No Hoarseness, No sore throat, No Rhinorrhea, No Swallowing Difficulty Eyes: No Eye Pain, No Swelling, No Redness, No Foreign Body, No Discharge, No Vision Changes Cardiovascular : No Chest Pain, No SOB, No Dyspnea on Exertion, No Orthopnea, No Edema, No Palpitations Respiratory : No Cough, No Sputum, No Wheezing, No Smoke Exposure, No Dyspnea Gastrointestinal : No Nausea, No Vomiting, No Diarrhea, No Constipation, No abdominal Pain, No Hematochezia, No Melena Genitourinary : no irregular bleeding, No Dysuria, No Urinary Frequency, No Hematuria, No Urinary Incontinence, No Urgency, No Flank Pain, No Urinary Flow Changes, No Hesitancy Musculoskeletal : Complaining of chronic left shoulder pain and ongoing ankle pain Skin : No Skin Lesions, No rash Neuro : No Weakness, No Numbness, No Paresthesias, No Loss of Consciousness, No Dizziness, No Headache Psych : No Anxiety/Panic, No Depression, No SI/HI/AH/VH, admits to alcohol abuse Heme/Lymph: No Bruising, No Bleeding,No Lymphadenopathy Endocrine : No Polyuria, No Polydipsia, No Temperature Intolerance [facility] Past Medical History Medical History Thrombocytopenia Alcohol withdrawal syndrome Cirrhosis Malnutrition CHF (congestive heart failure) Anemia Aspiration pneumonia Pneumonia Hypomagnesemia Thrombocytopenia Alcoholic liver disease Acute on chronic anemia CHF (congestive heart failure) Anemia Alcohol abuse Surgical History No history of previous surgery Social History Social History Household Members: None Household Members Other:: pt homeless Housing: Homeless Housing Other:: homeless Do you presently have visiting nurse or other home services: No Alcohol intake: current Alcohol intake frequency: 3 or more drinks per day Alcohol type: beer Comment: 1 assist to bathroom Patient Tobacco Use Status: Former Tobacco user Quit Date: 12 years ago Tobacco use type: Cigarette Second Hand Smoke Exposure: No Advance Directives: Yes Advance Directives on File: Yes Advance Directives Date on File: 07/13/23 service: No Physical Exam ED Vital Signs: Vital Signs - 24 hr 03/02/24 21:43 Temperature 98.3 F Pulse Rate 86 Respiratory Rate 16 Blood Pressure 121/53 L Pulse Oximetry 95 Oxygen Delivery Method Room Air BMI result Body Mass Index 22.6 Const Other: Appearance: Alert. Somnolent, easily arousable Eyes: Pupils equal, round and reactive to light. ENT: Pharynx normal. Neck: Normal inspection. Neck supple. No lymph nodes noted. No crepitus CVS: Normal heart rate and rhythm. Pulses normal. Normal S1 and S2 Respiratory: No respiratory distress. Breath sounds normal. No Wheezing. No rales Abdomen: Soft and nontender. No rigidity. No distention. Skin: Skin warm and dry. Normal skin color. Normal skin turgor. No ecchymosis or signs of trauma Extremities: No lower extremity edema. No Lacerations. No Rash Neuro: Oriented X 3. No motor deficit. No sensory deficit. Moving all extremities. No slurred speech. CN 2 through 12 grossly intact Psych: calm, cooperative, somnolent, easily arousable Course Course Course Narrative: -patient complaining of alcohol intoxication with no history or signs of trauma -patient's vitals stable -plan: Metabolize to freedom -patient states that he has not interested in detox at this time -physician observation started at 01:55 Medical Decision Making Differential Diagnosis Differential Diagnoses: The differential diagnosis associated with the presentation includes (Alcohol intoxication, polysubstance abuse) Admission/Observation Consideration of admission/observation: Escalation of care including admission/observation considered (Patient is under physician observation, likely to be discharged in the morning when he becomes sober) Discharge Plan Discharge Clinical Impression: Alcohol intoxication Patient Disposition: Home, Self-Care Instructions: Alcohol Intoxication (ED) Additional Instructions: Please follow-up with your primary care physician tomorrow. If you have any worsening or new symptoms, please return to the emergency room or call 911 Prescriptions: No Action nadolol 20 mg Tablet 10 mg PO DAILY Qty: 10 0RF Protocol: Hold for SBP/HR < HOLD for SBP < : 90 HOLD for HR < : 60 amoxicillin-pot clavulanate 875-125 mg Tablet 1 tab PO Q12H Qty: 10 0RF sucralfate 1 gram Tablet 1 g PO BIDAC Qty: 180 0RF omeprazole 40 mg Capsule,Delayed Release(Dr/Ec) 40 mg PO DAILY@0630 Qty: 30 0RF Print Language: Trinidadian
[2024-03-03 06:11] VITALS: BP 102/50; PULSE 92; RESP 16; TEMP 37.3; O2SAT 92
[2024-03-03 07:45] VITALS: BP 118/54; PULSE 88; RESP 16; TEMP 37.2; O2SAT 95
== END 2024-03-03 07:54 | disposition home or self-care (01) ==
PROVIDERS: Emergency Provider Emergency Medicine
DX: F10.120 Alcohol abuse with intoxication, uncomplicated (principal); Y90.9 Presence of alcohol in blood, level not specified; M25.512 Pain in left shoulder
CPT/HCPCS: 99283

== ENCOUNTER 2024-03-03 20:40 | Emergency (ER) | payer MEDICAID, SELFPAY ==
[2024-03-03 20:50] VITALS: BP 150/80; PULSE 77; O2SAT 96
[2024-03-03 20:57] VITALS: BMI 26.6
[2024-03-03 21:17] VITALS: BP 97/41; PULSE 71; RESP 16; TEMP 36.7; O2SAT 97
--- NOTE | 2024-03-03 23:43 | PC.NURSE ---
pt resting comfortably and quietly,
[2024-03-04 00:12] VITALS: BP 100/48; PULSE 84; RESP 16; TEMP 36.9; O2SAT 97
--- NOTE | 2024-03-04 00:17 | ED.GENADULT ---
HPI - General Adult General Chief complaint: General Medical Stated complaint: L leg, side, shoulder pain, ETOH, leg swollen Time Seen by Provider: 03/03/24 20:54 Source: patient Mode of arrival: EMS Limitations: no limitations History of Present Illness HPI narrative: Patient alcoholic comes here with chronic left ankle pain which for no recent fall was seen here for same yesterday been here almost every day does not have any place to sleep comes here in the night and goes on to the street in the morning Related Data Previous Rx's ?Medication ?Instructions ?Recorded amoxicillin 875 mg-potassium 1 tab PO Q12H #10 tabs 01/27/24 clavulanate 125 mg tablet nadolol 20 mg tablet 10 mg PO DAILY #10 tabs 01/27/24 omeprazole 40 mg capsule,delayed 40 mg PO DAILY@0630 #30 caps 01/27/24 release sucralfate 1 gram tablet 1 g PO BIDAC #180 tabs 01/27/24 Allergies Allergy/AdvReac Type Severity Reaction Status Date / Time No Known Allergies Allergy Verified 03/03/24 21:00 [No Known Allergies*] Review of Systems Review of Systems: Yes all other systems are reviewed and are negative [facility] Past Medical History Medical History Thrombocytopenia Alcohol withdrawal syndrome Cirrhosis Malnutrition CHF (congestive heart failure) Anemia Aspiration pneumonia Pneumonia Hypomagnesemia Thrombocytopenia Alcoholic liver disease Acute on chronic anemia CHF (congestive heart failure) Anemia Alcohol abuse Surgical History No history of previous surgery Social History Social History Household Members: None Household Members Other:: pt homeless Housing: Homeless Housing Other:: homeless Do you presently have visiting nurse or other home services: No Alcohol intake: current Alcohol intake frequency: 3 or more drinks per day Alcohol type: beer Comment: 1 assist to bathroom Patient Tobacco Use Status: Former Tobacco user Quit Date: 12 years ago Tobacco use type: Cigarette Second Hand Smoke Exposure: No Advance Directives: Yes Advance Directives on File: Yes Advance Directives Date on File: 07/13/23 service: No Physical Exam ED Vital Signs: Vital Signs - 24 hr 03/03/24 21:17 03/04/24 00:12 03/04/24 02:00 Temperature 98.0 F 98.4 F Pulse Rate 71 84 Respiratory Rate 16 16 16 Blood Pressure 97/41 L 100/48 L Pulse Oximetry 97 97 Oxygen Delivery Method Room Air Room Air BMI result Body Mass Index 26.6 Appearance: Alert. Oriented X3. No acute distress. etoh+ Eyes: PERRLA, No Nystagmus ENT: Pharynx normal. Oral Mucosa moist Neck: Normal inspection. Neck supple. CVS: Normal heart rate and rhythm. Pulses normal. Respiratory: No respiratory distress. Equal air entry bilateral, no wheezing/rales/rhonchi Abdomen: Soft and nontender. Bowel sounds are present, no mass palpable, no CVA tenderness Skin: Skin warm and dry. Normal skin color. Normal skin turgor. Extremities: No lower extremity edema. No calf tenderness Neuro: Oriented X 3. No motor deficit. No sensory deficit.No cerebellar signs , cranial nerves II-XII intact Medical Decision Making Medical Decision Making MDM Narrative: Patient called with chronic leg pain discharged home when sober Discharge Plan Discharge Clinical Impression: Alcohol use disorder Patient Disposition: Home, Self-Care Instructions: Abuse of Alcohol (ED) Additional Instructions: Stop drinking alcohol and follow with detox Prescriptions: No Action nadolol 20 mg Tablet 10 mg PO DAILY Qty: 10 0RF Protocol: Hold for SBP/HR < HOLD for SBP < : 90 HOLD for HR < : 60 amoxicillin-pot clavulanate 875-125 mg Tablet 1 tab PO Q12H Qty: 10 0RF sucralfate 1 gram Tablet 1 g PO BIDAC Qty: 180 0RF omeprazole 40 mg Capsule,Delayed Release(Dr/Ec) 40 mg PO DAILY@0630 Qty: 30 0RF Print Language: Urdu
[2024-03-04 02:00] VITALS: RESP 16
[2024-03-04 06:11] VITALS: BP 112/56; PULSE 85; RESP 16; TEMP 37; O2SAT 97
--- NOTE | 2024-03-04 06:11 | MHC.EDTECH ---
0600 rounding done ,vitals taken ,pt awake was giving snack and orange juice .
[2024-03-04 08:44] VITALS: BP 112/56; PULSE 85; RESP 16; TEMP 37.1; O2SAT 97
== END 2024-03-04 08:45 | disposition home or self-care (01) ==
PROVIDERS: Emergency Provider Internal Medicine
DX: F10.10 Alcohol abuse, uncomplicated (principal); M25.512 Pain in left shoulder; R60.0 Localized edema
CPT/HCPCS: 99282; 99284

== ENCOUNTER 2024-03-04 22:15 | Emergency (ER) | payer MEDICAID, SELFPAY ==
[2024-03-04 22:22] VITALS: BP 140/82; PULSE 82; O2SAT 97
[2024-03-04 22:23] VITALS: BP 121/70; PULSE 73; RESP 18; TEMP 36.5; O2SAT 95; BMI 21.6
--- NOTE | 2024-03-04 22:59 | ED_ITS ---
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 Patient also reports alcohol use. Related Data Previous Rx's ?Medication ?Instructions ?Recorded amoxicillin 875 mg-potassium 1 tab PO Q12H #10 tabs 01/27/24 clavulanate 125 mg tablet nadolol 20 mg tablet 10 mg PO DAILY #10 tabs 01/27/24 omeprazole 40 mg capsule,delayed 40 mg PO DAILY@0630 #30 caps 01/27/24 release sucralfate 1 gram tablet 1 g PO BIDAC #180 tabs 01/27/24 Allergies Allergy/AdvReac Type Severity Reaction Status Date / Time No Known Allergies Allergy Verified 03/04/24 22:25 [No Known Allergies*] Review of Systems Review of Systems: Pertinent positives and negatives as stated in HPI [facility] Past Medical History Source: nursing notes reviewed Medical History Thrombocytopenia Alcohol withdrawal syndrome Cirrhosis Malnutrition CHF (congestive heart failure) Anemia Aspiration pneumonia Pneumonia Hypomagnesemia Thrombocytopenia Alcoholic liver disease Acute on chronic anemia CHF (congestive heart failure) Anemia Alcohol abuse Surgical History No history of previous surgery Social History Social History Household Members: None Household Members Other:: pt homeless Housing: Homeless Housing Other:: homeless Do you presently have visiting nurse or other home services: No Alcohol intake: current Alcohol intake frequency: 3 or more drinks per day Alcohol type: beer Comment: 1 assist to bathroom Patient Tobacco Use Status: Former Tobacco user Quit Date: 12 years ago Tobacco use type: Cigarette Second Hand Smoke Exposure: No Advance Directives: Yes Advance Directives on File: Yes Advance Directives Date on File: 07/13/23 Do you have a plan to hurt others: No Plan service: No Physical Exam ED Vital Signs: Vital Signs - 24 hr 03/04/24 22:23 Temperature 97.7 F Pulse Rate 73 Respiratory Rate 18 Blood Pressure 121/70 Pulse Oximetry 95 Oxygen Delivery Method Room Air BMI result Body Mass Index 21.6 VITAL SIGNS: Reviewed. GENERAL: Well developed, well nourished, in no acute distress. HEAD: Normocephalic/atraumatic EYES: PERRLA, EOMI EARS: Ext canals without abnormality LUNGS: Normal breath sounds. No adventitious sounds or accessory muscle use. SpO2<95> CARDIOVASCULAR: Regular rate and rhythm without noted murmurs, no JVD or lower extremity edema. ABDOMEN: Soft, non-tender, non-distended with bowel sounds. MUSCULOSKELETAL: No tenderness, deformities, or effusions noted on gross inspection. EXTREMITIES: No cyanosis, clubbing or edema. LEFT ANKLE: Swollen without surrounding redness or deformity noted, no warmth to touch, good capillary refill with sensation intact and palpable DP/PT. SKIN: Inspection of the skin reveals no rashes NEUROLOGIC: Alert and oriented x 4. Strength and sensation to light touch were grossly intact x 4. Medical Decision Making Medical Decision Making MDM Narrative: 54-year-old male with history alcohol use disorder, I did review the x-ray of his left ankle from a couple of days ago which did not demonstrate any fractures or dislocations, there is no evidence to suggest underlying gout/cellulitis, Raymundo wrap will be applied, patient is placed on a CIWA and will be discharged in the morning. Patient placed in physician observation because the patient needed more time for clinical sobriety. At the time observation was started the patient's vital signs were stable, patient is alert and oriented, neuro: Nonfocal, CV RRR, lungs clear. Differential Diagnosis Differential Diagnoses: The differential diagnosis associated with the presentation includes Please see the discussion above Admission/Observation Consideration of admission/observation: Escalation of care including admission/observation considered Please see the discussion above Radiology Impression Discussion of test interpretation with radiology: I have reviewed the radiologist's reading. External Record Review External record reviewed: Prior outpatient radiology Critical Care Time Critical Care Time Critical Care Time: Yes Total Critical Care Time: 30 Attestation: I personally attest to this time spent taking care of the patient. Discharge Plan Discharge Clinical Impression: Alcohol intoxication, Alcohol use disorder, Left ankle swelling Patient Disposition: Still a Patient Prescriptions: No Action nadolol 20 mg Tablet 10 mg PO DAILY Qty: 10 0RF Protocol: Hold for SBP/HR < HOLD for SBP < : 90 HOLD for HR < : 60 amoxicillin-pot clavulanate 875-125 mg Tablet 1 tab PO Q12H Qty: 10 0RF sucralfate 1 gram Tablet 1 g PO BIDAC Qty: 180 0RF omeprazole 40 mg Capsule,Delayed Release(Dr/Ec) 40 mg PO DAILY@0630 Qty: 30 0RF Print Language: Turkmen
[2024-03-04 23:41] VITALS: RESP 19
[2024-03-05 01:47] VITALS: BP 107/53; PULSE 86; RESP 18; TEMP 36.5; O2SAT 95
[2024-03-05 05:58] VITALS: BP 102/61; PULSE 66; RESP 17; O2SAT 95
--- NOTE | 2024-03-05 07:30 | PC.NURSE ---
Resumed care of patient at 0700, he is currently sleeping. Pending dispo plan
[2024-03-05 08:41] VITALS: BP 107/46; PULSE 89; RESP 18; TEMP 37.1; O2SAT 93
[2024-03-05 08:51] VITALS: BP 107/46; PULSE 89; RESP 18; TEMP 37.1; O2SAT 93
== END 2024-03-05 08:53 | disposition home or self-care (01) ==
PROVIDERS: Emergency Provider Student in an Organized Health Care Education/Training Program
DX: F10.129 Alcohol abuse with intoxication, unspecified (principal); Y90.9 Presence of alcohol in blood, level not specified; M25.472 Effusion, left ankle
CPT/HCPCS: 99284

== ENCOUNTER 2024-03-05 15:49 | Emergency (ER) | payer MEDICAID, SELFPAY ==
[2024-03-05 15:58] VITALS: BP 142/60; PULSE 90; O2SAT 97
--- NOTE | 2024-03-05 16:09 | ED.GENADULT ---
HPI - General Adult General Chief complaint: ETOH/Substance Use Stated complaint: pedal edema, ETOH Time Seen by Provider: 03/05/24 16:05 Source: patient, EMS and RN notes reviewed Mode of arrival: EMS Limitations: no limitations History of Present Illness HPI narrative: Patient is a 54-year-old male with history of alcohol use disorder presenting to the emergency department via EMS with complaint of left ankle pain and swelling. He states that he received an Raymundo bandage while in this emergency department overnight but that it was ?too tight, so he removed it. He denies any new injury or trauma to the area. He denies any other complaints. complaint: Left ankle swelling Severity: similar to prior episodes Associated symptoms: denies other symptoms Treatments prior to arrival: none Related Data Previous Rx's ?Medication ?Instructions ?Recorded amoxicillin 875 mg-potassium 1 tab PO Q12H #10 tabs 01/27/24 clavulanate 125 mg tablet nadolol 20 mg tablet 10 mg PO DAILY #10 tabs 01/27/24 omeprazole 40 mg capsule,delayed 40 mg PO DAILY@0630 #30 caps 01/27/24 release sucralfate 1 gram tablet 1 g PO BIDAC #180 tabs 01/27/24 Allergies Allergy/AdvReac Type Severity Reaction Status Date / Time No Known Allergies Allergy Verified 03/05/24 16:17 [No Known Allergies*] Review of Systems Review of Systems: As per HPI. Yes all other systems are reviewed and are negative Constitutional: Constitutional: Reports as per HPI [facility] Past Medical History Medical History Thrombocytopenia Alcohol withdrawal syndrome Cirrhosis Malnutrition CHF (congestive heart failure) Anemia Aspiration pneumonia Pneumonia Hypomagnesemia Thrombocytopenia Alcoholic liver disease Acute on chronic anemia CHF (congestive heart failure) Anemia Alcohol abuse Surgical History No history of previous surgery Social History Social History Household Members: None Household Members Other:: pt homeless Housing: Homeless Housing Other:: homeless Do you presently have visiting nurse or other home services: No Alcohol intake: current Alcohol intake frequency: 3 or more drinks per day Alcohol type: beer Comment: 1 assist to bathroom Patient Tobacco Use Status: Former Tobacco user Quit Date: 12 years ago Tobacco use type: Cigarette Second Hand Smoke Exposure: No Advance Directives: Yes Advance Directives on File: Yes Advance Directives Date on File: 07/13/23 service: No Physical Exam ED Vital Signs: Vital Signs - 24 hr 03/05/24 16:11 Temperature 98 F Pulse Rate 98 Respiratory Rate 20 Blood Pressure 101/50 L Pulse Oximetry 97 Oxygen Delivery Method Room Air BMI result Body Mass Index 20.0 Vital signs have been reviewed and appear to be correct. Blood pressure normal. Heart rate normal. Respiratory rate normal. Temperature normal. Oxygen saturation normal. Const General: cooperative and no acute distress Orientation/consciousness: oriented to person, oriented to place, oriented to time and patient oriented x3 Limitations: no limitations HENMT Head: Yes normocephalic and Yes atraumatic Ears: external ears normal General nose exam: Normal external nose present Face and sinus: Yes face symmetric Mouth: oropharynx normal and moist mucous membranes Throat: Yes uvula midline Eyes Pupils: Equal, round and reactive pupils present Neck Neck: Yes normal visual inspection and Yes supple Resp Effort & Inspection: normal respiratory effort and able to speak in complete sentences Auscultation: clear to auscultation bilaterally Cardio Rate: regular rate Rhythm: regular rhythm Heart sounds: S1 normal heart sound present and S2 normal heart sound present GI Palpation (GI): Soft to palpation and nontender Auscultation: normoactive bowel sounds General: Yes no CVA tenderness Back/Spine/Pelvis Back: no CVA tenderness Skin General skin exam: elasticity normal and turgor normal Neuro General: oriented to person, oriented to place, oriented to time, patient oriented x3, moves all extremities, no focal motor deficits and CN's II-XI intact bilaterally Cranial nerves: Yes Equal, round and reactive pupils present Cognition (Neuro): normal cognition Extrem General: Yes full ROM and Yes no calf tenderness Left lower extremity: ankle Details: swelling Details: diffusely and normal ROM; no warmth, no ecchymosis and no crepitus and foot Details: toes with normal ROM and vascular exam Details: dorsalis pedis pulse present, posterior tibial pulse present and normal capillary refill; no unusual warmth Psych Mental Status: mental status grossly normal Affect: normal affect Thought process: Normal thought process present Medical Decision Making Medical Decision Making MDM Narrative: Patient is a 54-year-old male with history of alcohol use disorder presenting to the emergency department via EMS with complaint of left ankle pain and swelling. On exam patient is awake, A+Ox3, VS WNL, afebrile, normal neurological exam without focal deficits, physical exam findings as above. Given reported symptoms and physical exam findings, initial differential includes alcohol intoxication, left ankle strain versus sprain. Patient was seen and evaluated for same complaint in the emergency department overnight and was discharged this morning with an Raymundo bandage, denies any new injuries or trauma, patient had x-ray for same complaint on 02/28 which showed soft tissue swelling and osteopenia without acute fracture. Discussed with patient how to apply RAYMUNDO wrap correctly to ensure that it is not too tight. Instructed patient to keep foot elevated while at rest and that he can also apply ice intermittently. Do not suspect cellulitis, gout. Feel patient is stable for discharge at this time. Return precautions discussed. Differential Diagnosis Differential Diagnoses: The differential diagnosis associated with the presentation includes As per MDM. External Record Review External record reviewed: Inpatient record, Office record and Outpatient record Discharge Plan Discharge Clinical Impression: Left ankle swelling Patient Disposition: Home, Self-Care Instructions: Alcohol Intoxication (ED), Abuse of Alcohol (DC), Alcohol Withdrawal (DC), R.I.C.E. Treatment (ED), Alcohol Use Disorder (ED) Additional Instructions: Do not abuse alcohol. Use the Raymundo bandage you were provided with to provide support to your ankle. Return to the emergency department with any new or concerning symptoms. Prescriptions: No Action nadolol 20 mg Tablet 10 mg PO DAILY Qty: 10 0RF Protocol: Hold for SBP/HR < HOLD for SBP < : 90 HOLD for HR < : 60 amoxicillin-pot clavulanate 875-125 mg Tablet 1 tab PO Q12H Qty: 10 0RF sucralfate 1 gram Tablet 1 g PO BIDAC Qty: 180 0RF omeprazole 40 mg Capsule,Delayed Release(Dr/Ec) 40 mg PO DAILY@0630 Qty: 30 0RF Print Language: Micronesian
[2024-03-05 16:11] VITALS: BP 101/50; PULSE 98; RESP 20; TEMP 36.6; O2SAT 97
--- NOTE | 2024-03-05 16:32 | PC.NURSE ---
PT WAS CHANGED INTO HOSPITAL ATTIRE, SECURITY PLACED CLOTHING IN LOCKER 10 IN THE POD
[2024-03-05 18:37] VITALS: BP 127/83; PULSE 83; RESP 18; TEMP 36.6; O2SAT 97
[2024-03-05 18:39] VITALS: BP 127/83; PULSE 83; RESP 18; TEMP 36.6; O2SAT 97
== END 2024-03-05 18:40 | disposition home or self-care (01) ==
PROVIDERS: Emergency Provider Emergency Medicine Emergency Medical Services
DX: M25.472 Effusion, left ankle (principal); Z87.891 Personal history of nicotine dependence
CPT/HCPCS: 99282; 99284

== ENCOUNTER 2024-03-05 21:37 | Emergency (ER) | payer MEDICAID, SELFPAY ==
[2024-03-05 21:46] VITALS: BP 122/75; PULSE 80; O2SAT 97
[2024-03-05 22:03] VITALS: BP 143/71; PULSE 76; RESP 18; TEMP 36.8; O2SAT 96; BMI 19.4
--- NOTE | 2024-03-06 03:24 | PC.NURSE ---
pt seen here 11 times this month for same complaints, pt is homeless, drinks alcohol daily, comes to ER via ambulance multiple times for etoh/homeless/pain in feet/ wanting somewhere to sleep. at time of arrival pt sent out to waiting room to be evaluated by superintendent plant protection since no beds or [facility] beds available in [facility]. MD Chinchilla aware, states he seen pt here multiple times this month and pt does not need medical attention per MD.
== END 2024-03-06 03:44 | disposition left against medical advice (07) ==
PROVIDERS: Emergency Provider Emergency Medicine
DX: R45.851 Suicidal ideations (principal); M79.89 Other specified soft tissue disorders
CPT/HCPCS: 99281

== ENCOUNTER 2024-03-06 20:17 | Emergency (ER) | payer MEDICAID, SELFPAY ==
[2024-03-06 20:28] VITALS: BP 120/88; PULSE 71; O2SAT 99
[2024-03-06 20:43] VITALS: BP 137/64; PULSE 83; RESP 18; TEMP 36.8; O2SAT 97; BMI 19.4
== END 2024-03-06 22:23 | disposition left against medical advice (07) ==
PROVIDERS: Emergency Provider Emergency Medicine
DX: M79.609 Pain in unspecified limb (principal)
CPT/HCPCS: 99282

== ENCOUNTER 2024-03-06 23:02 | Emergency (ER) | payer MEDICAID, SELFPAY ==
[2024-03-06 23:19] VITALS: BP 126/63; BP 128/68; PULSE 80; PULSE 82; RESP 18; TEMP 36.5; O2SAT 97; O2SAT 98; BMI 19.4
--- NOTE | 2024-03-07 02:41 | ED_ITS ---
HPI - General Adult General Chief complaint: General Medical Stated complaint: ETOH Time Seen by Provider: 03/07/24 02:41 Source: patient Mode of arrival: EMS Limitations: no limitations History of Present Illness HPI narrative: 54-year-old male with a history of thrombocytopenia, cirrhosis, C congestive heart failure, alcohol use disorder seen frequently here in the emergency department who presents for evaluation of left shoulder pain and left ankle pain. The patient has had multiple visits for evaluation of his ankle pain. The patient has soft tissue swelling consistent with a sprain and now was in a walking boot. He is complaining of left shoulder pain as well. He denies any recent injury. Side and he sleeping in a bung sewer pipe any need to emergency department to get warm. Related Data Previous Rx's ?Medication ?Instructions ?Recorded amoxicillin 875 mg-potassium 1 tab PO Q12H #10 tabs 01/27/24 clavulanate 125 mg tablet nadolol 20 mg tablet 10 mg PO DAILY #10 tabs 01/27/24 omeprazole 40 mg capsule,delayed 40 mg PO DAILY@0630 #30 caps 01/27/24 release sucralfate 1 gram tablet 1 g PO BIDAC #180 tabs 01/27/24 Allergies Allergy/AdvReac Type Severity Reaction Status Date / Time No Known Allergies Allergy Verified 03/06/24 23:26 [No Known Allergies*] Review of Systems Review of Systems: Yes all other systems are reviewed and are negative PMFSH Past Medical History Medical History Thrombocytopenia Alcohol withdrawal syndrome Cirrhosis Malnutrition CHF (congestive heart failure) Anemia Aspiration pneumonia Pneumonia Hypomagnesemia Thrombocytopenia Alcoholic liver disease Acute on chronic anemia CHF (congestive heart failure) Anemia Alcohol abuse Surgical History No history of previous surgery Social History Social History Household Members: None Household Members Other:: pt homeless Housing: Homeless Housing Other:: homeless Do you presently have visiting nurse or other home services: No Alcohol intake: current Alcohol intake frequency: 3 or more drinks per day Alcohol type: beer Comment: 1 assist to bathroom Patient Tobacco Use Status: Former Tobacco user Quit Date: 12 years ago Tobacco use type: Cigarette Second Hand Smoke Exposure: No Advance Directives Date on File: 07/13/23 service: No Physical Exam ED Vital Signs: Vital Signs - 24 hr 04/24/24 23:19 Temperature 97.7 F Pulse Rate 80 Respiratory Rate 18 Blood Pressure 126/63 Pulse Oximetry 98 Oxygen Delivery Method Room Air BMI result Body Mass Index 19.4 Vital signs were Exam: General: Awake, alert in no distress Extremities: Patient has no tenderness with palpation of his left shoulder, has full range of motion without difficulty. The patient's left walking boot was removed, he does have bilateral soft tissue swelling of the ankle with tenderness palpation. Is neurovascularly intact Medical Decision Making Medical Decision Making MDM Narrative: 54-year-old male with a history of thrombocytopenia, cirrhosis, C congestive heart failure, alcohol use disorder seen frequently here in the emergency department who presents for evaluation of left shoulder pain and left ankle pain . Examination of his left shoulder revealed no significant abnormalities. Examination of his left ankle is consistent with an ankle sprain Differential diagnosis: ?Includes but is not limited to left ankle sprain, left ankle fracture, left shoulder sprain, left shoulder fracture Course: The patient's left ankle findings are unchanged from the last time that I evaluated this patient on 02/27/2029. He was advised to continue wearing the walking boot. Patient has no significant findings his left shoulder therefore I did not get x-rays. The patient was seen here frequent mainly because he is homeless and has alcohol use disorder. Discharged Chronic Conditions Patient?s care impacted by: Other (Alcohol use disorder) Social Determinants Patient?s care significantly limited by Social Determinants of Health including: Inadequate housing Discharge Plan Discharge Prescriptions: No Action nadolol 20 mg Tablet 10 mg PO DAILY Qty: 10 0RF Protocol: Hold for SBP/HR < HOLD for SBP < : 90 HOLD for HR < : 60 amoxicillin-pot clavulanate 875-125 mg Tablet 1 tab PO Q12H Qty: 10 0RF sucralfate 1 gram Tablet 1 g PO BIDAC Qty: 180 0RF omeprazole 40 mg Capsule,Delayed Release(Dr/Ec) 40 mg PO DAILY@0630 Qty: 30 0RF Print Language: St Helenian
[2024-03-07 03:22] VITALS: BP 132/76; PULSE 87; RESP 16; TEMP 36.9; O2SAT 97
== END 2024-03-07 03:23 | disposition home or self-care (01) ==
PROVIDERS: Emergency Provider Emergency Medicine Emergency Medical Services
DX: M25.512 Pain in left shoulder (principal); M25.572 Pain in left ankle and joints of left foot; Z79.899 Other long term (current) drug therapy
CPT/HCPCS: 99284

== ENCOUNTER 2024-03-09 18:41 | Emergency (ER) | payer MEDICAID, SELFPAY ==
[2024-03-09 18:45] VITALS: BP 113/55; PULSE 83; RESP 16; TEMP 36.2; O2SAT 93; BMI 23.2
--- NOTE | 2024-03-09 18:53 | PC.NURSE ---
patient presented with bag of alcohol, confiscated and in security office
--- NOTE | 2024-03-09 18:58 | ED_ITS ---
HPI - Alcohol General Chief Complaint: ETOH/Substance Use Stated Complaint: ETOH,L LEG PAIN, WEAKNESS Time Seen by Provider: 03/09/24 18:46 Source: patient Mode of arrival: EMS Limitations: no limitations History of Present Illness HPI narrative: Patient alcoholic been here almost every day for being drunk no signs of injury comes here as usual drink while on the street walking Related Data Previous Rx's ?Medication ?Instructions ?Recorded amoxicillin 875 mg-potassium 1 tab PO Q12H #10 tabs 01/27/24 clavulanate 125 mg tablet nadolol 20 mg tablet 10 mg PO DAILY #10 tabs 01/27/24 omeprazole 40 mg capsule,delayed 40 mg PO DAILY@0630 #30 caps 01/27/24 release sucralfate 1 gram tablet 1 g PO BIDAC #180 tabs 01/27/24 Allergies Allergy/AdvReac Type Severity Reaction Status Date / Time No Known Allergies Allergy Verified 03/09/24 18:47 [No Known Allergies*] Review of Systems Review of Systems: Yes all other systems are reviewed and are negative PMFSH Past Medical History Medical History Thrombocytopenia Alcohol withdrawal syndrome Cirrhosis Malnutrition CHF (congestive heart failure) Anemia Aspiration pneumonia Pneumonia Hypomagnesemia Thrombocytopenia Alcoholic liver disease Acute on chronic anemia CHF (congestive heart failure) Anemia Alcohol abuse Surgical History No history of previous surgery Social History Social History Household Members: None Household Members Other:: pt homeless Housing: Homeless Housing Other:: homeless Do you presently have visiting nurse or other home services: No Alcohol intake: current Alcohol intake frequency: 3 or more drinks per day Alcohol type: beer Comment: 1 assist to bathroom Patient Tobacco Use Status: Former Tobacco user Quit Date: 12 years ago Tobacco use type: Cigarette Second Hand Smoke Exposure: No Advance Directives: Yes Advance Directives on File: Yes Advance Directives Date on File: 07/13/23 service: No Physical Exam ED Vital Signs: Vital Signs - 24 hr 03/09/24 18:45 03/09/24 21:21 Temperature 97.2 F 97.8 F Pulse Rate 83 87 Respiratory Rate 16 16 Blood Pressure 113/55 L 104/47 L Pulse Oximetry 93 93 Oxygen Delivery Method Room Air Room Air BMI result Body Mass Index 23.2 Appearance: Alert. Oriented X3. No acute distress. Intoxicated Eyes: No pallor or icterus ENT: Pharynx normal. Oral Mucosa moist Neck: Normal inspection. Neck supple. CVS: Normal heart rate and rhythm. Pulses normal. Respiratory: No respiratory distress. Equal air entry bilateral, no wheezing/rales/rhonchi Abdomen: Soft and nontender. Bowel sounds are present, no mass palpable, no CVA tenderness Skin: Skin warm and dry. Normal skin color. Normal skin turgor. Extremities: No lower extremity edema. No calf tenderness right foot in splint Neuro: Oriented X 3. No motor deficit. No sensory deficit.No cerebellar signs , cranial nerves II-XII intact Discharge Plan Discharge Clinical Impression: Alcohol intoxication Patient Disposition: Still a Patient Instructions: Alcohol Intoxication (ED) Additional Instructions: Stop drinking alcohol Prescriptions: No Action nadolol 20 mg Tablet 10 mg PO DAILY Qty: 10 0RF Protocol: Hold for SBP/HR < HOLD for SBP < : 90 HOLD for HR < : 60 amoxicillin-pot clavulanate 875-125 mg Tablet 1 tab PO Q12H Qty: 10 0RF sucralfate 1 gram Tablet 1 g PO BIDAC Qty: 180 0RF omeprazole 40 mg Capsule,Delayed Release(Dr/Ec) 40 mg PO DAILY@0630 Qty: 30 0RF Print Language: Kinyarwanda
--- NOTE | 2024-03-09 20:48 | PC.NURSE ---
Pt sleeping at the bedside. No apparent distress noted. Breaths are even regular and unlabored with equal chest rises. Monitoring is ongoing.
[2024-03-09 21:21] VITALS: BP 104/47; PULSE 87; RESP 16; TEMP 36.6; O2SAT 93
[2024-03-10 00:08] VITALS: RESP 14
[2024-03-10 04:34] VITALS: RESP 14
[2024-03-10 06:16] VITALS: BP 100/51; PULSE 84; RESP 16; TEMP 37.5; O2SAT 93
== END 2024-03-10 14:39 | disposition home or self-care (01) ==
PROVIDERS: Emergency Provider Internal Medicine
DX: F10.129 Alcohol abuse with intoxication, unspecified (principal); Y90.9 Presence of alcohol in blood, level not specified
CPT/HCPCS: 99283

== ENCOUNTER 2024-03-10 16:32 | Emergency (ER) | payer MEDICAID, SELFPAY ==
[2024-03-10 16:42] VITALS: BP 134/82; PULSE 113; RESP 18; O2SAT 98
[2024-03-10 16:45] VITALS: BMI 34.5
--- NOTE | 2024-03-10 16:53 | ED_ITS ---
HPI - Alcohol General Chief Complaint: ETOH/Substance Use Stated Complaint: SWOLLEN ANKLES, ETOH Time Seen by Provider: 03/10/24 16:48 Source: patient Mode of arrival: EMS History of Present Illness HPI narrative: Patient alcoholic with chronic right leg swelling been here almost every day for been Street just discharged earlier today from the ER no signs of head trauma Related Data Previous Rx's ?Medication ?Instructions ?Recorded amoxicillin 875 mg-potassium 1 tab PO Q12H #10 tabs 01/27/24 clavulanate 125 mg tablet nadolol 20 mg tablet 10 mg PO DAILY #10 tabs 01/27/24 omeprazole 40 mg capsule,delayed 40 mg PO DAILY@0630 #30 caps 01/27/24 release sucralfate 1 gram tablet 1 g PO BIDAC #180 tabs 01/27/24 Allergies Allergy/AdvReac Type Severity Reaction Status Date / Time No Known Allergies Allergy Verified 03/10/24 16:47 [No Known Allergies*] Review of Systems Review of Systems: Yes all other systems are reviewed and are negative PMFSH Past Medical History Medical History Thrombocytopenia Alcohol withdrawal syndrome Cirrhosis Malnutrition CHF (congestive heart failure) Anemia Aspiration pneumonia Pneumonia Hypomagnesemia Thrombocytopenia Alcoholic liver disease Acute on chronic anemia CHF (congestive heart failure) Anemia Alcohol abuse Surgical History No history of previous surgery Social History Social History Household Members: None Household Members Other:: pt homeless Housing: Homeless Housing Other:: homeless Do you presently have visiting nurse or other home services: No Alcohol intake: current Alcohol intake frequency: 3 or more drinks per day Alcohol type: beer Comment: 1 assist to bathroom Patient Tobacco Use Status: Former Tobacco user Quit Date: 12 years ago Tobacco use type: Cigarette Second Hand Smoke Exposure: No Use of substances other than those prescribed or required for medical reasons: No Advance Directives: Yes Advance Directives on File: Yes Advance Directives Date on File: 07/13/23 Do you have a plan to hurt others: No Plan service: No Physical Exam ED Vital Signs: Vital Signs - 24 hr 03/10/24 16:42 03/10/24 21:08 03/11/24 00:12 Temperature 99.2 F 99.3 F Pulse Rate 113 H 94 90 Respiratory Rate 18 16 14 Blood Pressure 134/82 100/42 L 104/43 L Pulse Oximetry 98 93 94 Oxygen Delivery Method Room Air Room Air Room Air BMI result Body Mass Index 34.5 Appearance: Alert. Oriented X3. No acute distress. Intoxicated Eyes: PERRLA, No Nystagmus ENT: Pharynx normal. Oral Mucosa moist Neck: Normal inspection. Neck supple. CVS: Normal heart rate and rhythm. Pulses normal. Respiratory: No respiratory distress. Equal air entry bilateral, no wheezing/rales/rhonchi Abdomen: Soft and nontender. Bowel sounds are present, no mass palpable, no CVA tenderness Skin: Skin warm and dry. Normal skin color. Normal skin turgor. Extremities: Left ankle lower extremity edema. No calf tenderness Neuro: Oriented X 3. No motor deficit. No sensory deficit.No cerebellar signs , cranial nerves II-XII intact Discharge Plan Discharge Clinical Impression: Alcohol intoxication Patient Disposition: Still a Patient Instructions: Alcohol Intoxication (ED) Additional Instructions: Stop drinking alcohol and follow detox Prescriptions: No Action nadolol 20 mg Tablet 10 mg PO DAILY Qty: 10 0RF Protocol: Hold for SBP/HR < HOLD for SBP < : 90 HOLD for HR < : 60 amoxicillin-pot clavulanate 875-125 mg Tablet 1 tab PO Q12H Qty: 10 0RF sucralfate 1 gram Tablet 1 g PO BIDAC Qty: 180 0RF omeprazole 40 mg Capsule,Delayed Release(Dr/Ec) 40 mg PO DAILY@0630 Qty: 30 0RF Print Language: Amharic
[2024-03-10 21:08] VITALS: BP 100/42; PULSE 94; RESP 16; TEMP 37.3; O2SAT 93
[2024-03-11 00:12] VITALS: BP 104/43; PULSE 90; RESP 14; TEMP 37.4; O2SAT 94
[2024-03-11 06:22] VITALS: BP 104/43; PULSE 90; RESP 14; TEMP 37.4; O2SAT 94
== END 2024-03-11 06:23 | disposition home or self-care (01) ==
PROVIDERS: Emergency Provider Internal Medicine
DX: F10.129 Alcohol abuse with intoxication, unspecified (principal); Y90.9 Presence of alcohol in blood, level not specified
CPT/HCPCS: 99284

== ENCOUNTER 2024-03-11 13:43 | Emergency (ER) | payer MEDICAID, SELFPAY ==
--- NOTE | ~2024-03-11 | XR_ITS ---
EXAMINATION: XR ANKLE, LEFT CLINICAL INFORMATION: Stress fracture. COMPARISON: Radiograph left ankle 02/29/2024. TECHNIQUE: AP, lateral, and mortise views of the left ankle. FINDINGS: Unchanged oblique line of increased sclerosis in the distal tibia extending from the midline to the medial malleolus. Similar degree of severe diffuse soft tissue swelling and extensive vascular calcifications. No significant interval change. XR/XR ankle LT min 3V IMPRESSION: No significant change compared to 02/29/2024, as before a distal tibial fracture is not excluded. Consider correlation with cross-sectional imaging as clinically warranted.
[2024-03-11 13:55] VITALS: BP 126/56; BP 172/88; PULSE 77; PULSE 78; RESP 16; TEMP 36.5; O2SAT 94; O2SAT 95; BMI 22.0
--- NOTE | 2024-03-11 14:51 | PC.NURSE ---
pt resting on gurney- appears to be sleeping- loud snoring, rise and fall of chest even and symmetrical. of note, left lower extremity appears edematous- awaiting provider eval
--- NOTE | 2024-03-11 16:51 | PC.NURSE ---
pt continues to sleep- awakes to verbal stimulii, urinal emptied of 200 mls pale straw colored urine
--- NOTE | 2024-03-11 16:56 | ED.ALCOHOL ---
HPI - Alcohol General Chief Complaint: Extremity Injury, Lower Stated Complaint: ETOH USE PER EMS Time Seen by Provider: 03/11/24 15:22 Source: patient Mode of arrival: EMS History of Present Illness HPI narrative: 54-year-old male who presents for complaints of left foot pain as well as intoxication. Related Data Previous Rx's ?Medication ?Instructions ?Recorded amoxicillin 875 mg-potassium 1 tab PO Q12H #10 tabs 01/27/24 clavulanate 125 mg tablet nadolol 20 mg tablet 10 mg PO DAILY #10 tabs 01/27/24 omeprazole 40 mg capsule,delayed 40 mg PO DAILY@0630 #30 caps 01/27/24 release sucralfate 1 gram tablet 1 g PO BIDAC #180 tabs 01/27/24 Allergies Allergy/AdvReac Type Severity Reaction Status Date / Time No Known Allergies Allergy Verified 03/11/24 14:04 [No Known Allergies*] Review of Systems Review of Systems: Pertinent positives and negatives as stated in HPI PMFSH Past Medical History Source: nursing notes reviewed Medical History Thrombocytopenia Alcohol withdrawal syndrome Cirrhosis Malnutrition CHF (congestive heart failure) Anemia Aspiration pneumonia Pneumonia Hypomagnesemia Thrombocytopenia Alcoholic liver disease Acute on chronic anemia CHF (congestive heart failure) Anemia Alcohol abuse Surgical History No history of previous surgery Social History Social History Household Members: None Household Members Other:: pt homeless Housing: Homeless Housing Other:: homeless Do you presently have visiting nurse or other home services: No Alcohol intake: current Alcohol intake frequency: 3 or more drinks per day Alcohol type: hard liquor Comment: 1 assist to bathroom Patient Tobacco Use Status: Former Tobacco user Quit Date: 12 years ago Tobacco use type: Cigarette Smoked in Last 30 Days: No Second Hand Smoke Exposure: No Use of substances other than those prescribed or required for medical reasons: No Advance Directives: Yes Advance Directives on File: Yes Advance Directives Date on File: 07/13/23 Do you have a plan to hurt others: No Plan service: No Physical Exam ED Vital Signs: Vital Signs - 24 hr 03/11/24 13:55 03/11/24 17:39 Temperature 97.7 F 98.6 F Pulse Rate 77 83 Respiratory Rate 16 14 Blood Pressure 126/56 L 100/55 L Pulse Oximetry 95 94 Oxygen Delivery Method Room Air Room Air BMI result Body Mass Index 22.0 VITAL SIGNS: Reviewed. GENERAL: Well developed, well nourished, in no acute distress. HEAD: Normocephalic/atraumatic EYES: PERRLA, EOMI LUNGS: Normal breath sounds. No adventitious sounds or accessory muscle use. SpO2<95> CARDIOVASCULAR: Regular rate and rhythm without noted murmurs ABDOMEN: Soft, non-tender, non-distended with bowel sounds. MUSCULOSKELETAL: No tenderness, deformities, or effusions noted on gross inspection. EXTREMITIES: No cyanosis, clubbing or edema. SKIN: Inspection of the skin reveals no rashes NEUROLOGIC: Alert and oriented x 3. Strength and sensation to light touch were grossly intact x 4. Medical Decision Making Medical Decision Making [facility] Narrative: 54-year-old male with a longstanding history of alcohol intoxication alcohol abuse, left extremity has been imaged previously without acute findings of fracture or dislocation and shows hallux deformity at the 1st MTP on 02/28 as well as radiology's inability to determine whether or not there is a possible stress fracture of the distal medial tibia and so will proceed with repeat imaging as the last image was 11 days ago and will be able to determine if there is any evidence of healing. I reviewed all investigations and hematologic indices are grossly within his chronic levels and chemistry indices demonstrate a mildly low potassium but otherwise no evidence of RAVI or liver enzyme derangements, x-ray of the ankle demonstrates stable findings and patient is otherwise stable for discharge. After receiving supplemental potassium chloride. Differential Diagnosis Differential Diagnoses: The differential diagnosis associated with the presentation includes Please see the discussion above Admission/Observation Consideration of admission/observation: Escalation of care including admission/observation considered Please see the discussion above Lab Data [facility] Lab Attestation statement: I reviewed the patient's lab results. Please see the discussion above 03/11/24 17:24 03/11/24 17:24 Labs: Lab Results 03/11/24 Range/Units 17:24 WBC 2.3 L (4.8-10.8) X10*3/uL RBC 2.73 L (4.60-5.80) X10*6/uL Hgb 8.5 L (14.0-18.0) g/dl Hct 26.4 L (42.0-52.0) % MCV 96.7 (80.0-98.0) fL MCH 31.1 (27.0-33.0) pg MCHC 32.2 (31.0-36.0) g/dl RDW 16.4 H (11.0-16.0) % Plt Count 37 L (160-400) X10*3/uL MPV 10.8 (9.4-12.4) fL Immature Gran % (Auto) 0.4 (0.0-0.4) % Neut % (Auto) 38.8 L (45-73) % Lymph % (Auto) 44.0 H (20-40) % Coles % (Auto) 11.6 H (2-11) % Eos % (Auto) 4.3 H (0-4) % Baso % (Auto) 0.9 (0-2) % Lymph # (Auto) 1.0 L (1.2-4.9) X10*3/uL Coles # (Auto) 0.3 (0.1-1.2) X10*3/uL Eos # (Auto) 0.1 (0.0-0.4) X10*3/uL Baso # (Auto) 0.0 (0.0-0.2) X10*3/uL Abs Immat Gran (auto) 0.01 (0.00-0.03) X10*3/uL Absolute Neuts (auto) 0.9 L (2.0-8.3) x10*3/uL Absolute Nucleated RBC 0.000 (0.0-0.012) X10*3/uL Nucleated RBC % (auto) 0.0 (0.0-0.2) /100WBC Smear Tech's Comments VERIFIED Sodium 146 H (135-145) mmol/L Potassium 3.2 L (3.3-5.1) mmol/L Chloride 113 H (96-108) mmol/L Carbon Dioxide 22 (22-29) mmol/L Anion Gap 14 (12-20) BUN 8 L (9-16) mg/dL Creatinine 0.67 (0.5-1.4) mg/dL Estim Creat Clear Calc 108.7 Estimated GFR > 60 Random Glucose 105 (60-115) mg/dL Calcium 8.5 (8.4-10.2) mg/dL Total Bilirubin 0.6 (0.0-1.0) mg/dL AST 33 (5-37) U/L ALT 8 (0-40) U/L Alkaline Phosphatase 128 H (39-117) U/L Total Protein 7.2 (6.5-8.0) g/dL Albumin 3.1 L (3.5-5.0) g/dL Radiology Impression Discussion of test interpretation with radiology: I have reviewed the radiologist's reading. Radiologist Impression: Please see the discussion above Critical Care Time Critical Care Time Critical Care Time: Yes Total Critical Care Time: 45 Attestation: I personally attest to this time spent taking care of the patient. Discharge Plan Discharge Clinical Impression: Alcohol intoxication, Hypokalemia Patient Disposition: Home, Self-Care Instructions: Abuse of Alcohol (ED), Alcohol Intoxication (ED), Hypokalemia (ED), Potassium Content of Foods List (ED) Additional Instructions: Return to the ER if you decide you want to pursue detox. Prescriptions: No Action nadolol 20 mg Tablet 10 mg PO DAILY Qty: 10 0RF Protocol: Hold for SBP/HR < HOLD for SBP < : 90 HOLD for HR < : 60 amoxicillin-pot clavulanate 875-125 mg Tablet 1 tab PO Q12H Qty: 10 0RF sucralfate 1 gram Tablet 1 g PO BIDAC Qty: 180 0RF omeprazole 40 mg Capsule,Delayed Release(Dr/Ec) 40 mg PO DAILY@0630 Qty: 30 0RF Print Language: Polish
[2024-03-11 17:33] LABS: Basophils Percent Auto 0.9 % (0-2); Eosinophils Absolute Auto 0.1 X10*3/uL (0.0-0.4); Eosinophils Percent Auto 4.3 % (0-4); Hematocrit 26.4 % (42.0-52.0); Hemoglobin 8.5 g/dl (14.0-18.0); Imm Gran Abs Auto 0.01 X10*3/uL (0.00-0.03); Imm Gran Pct Auto 0.4 % (0.0-0.4); MANUAL DIFF FLAG SCAN; Mean Corpuscular HGB Conc 32.2 g/dl (31.0-36.0); Mean Corpuscular Hemoglobin 31.1 pg (27.0-33.0); Mean Corpuscular Volume 96.7 fL (80.0-98.0); Mean Platelet Volume 10.8 fL (9.4-12.4); Monocytes Absolute Auto 0.3 X10*3/uL (0.1-1.2); Monocytes Percent Auto 11.6 % (2-11); Neutrophils Absolute Auto 0.9 x10*3/uL (2.0-8.3); Neutrophils Percent Auto 38.8 % (45-73); Red Blood Count 2.73 X10*6/uL (4.60-5.80); Red Cell Distribution Width 16.4 % (11.0-16.0); SCAN SMEAR FLAG 1
[2024-03-11 17:39] VITALS: BP 100/55; PULSE 83; RESP 14; TEMP 37; O2SAT 94
[2024-03-11 17:46] LABS: Alanine Aminotransferase 8 U/L (0-40); Albumin Level 3.1 g/dL (3.5-5.0); Alkaline Phosphatase 128 U/L (39-117); Anion Gap 14 (12-20); Aspartate Amino Transferase 33 U/L (5-37); Bilirubin Total 0.6 mg/dL (0.0-1.0); Blood Urea Nitrogen 8 mg/dL (9-16); Calcium 8.5 mg/dL (8.4-10.2); Carbon Dioxide 22 mmol/L (22-29); Chloride 113 mmol/L (96-108); Creatinine Clr Calc Pharmacy 108.7; Estimated Glomerular Filt Rate > 60; Glucose Random 105 mg/dL (60-115); Potassium 3.2 mmol/L (3.3-5.1); Sodium 146 mmol/L (135-145); Total Protein 7.2 g/dL (6.5-8.0)
--- NOTE | 2024-03-11 17:54 | PC.NURSE ---
assumed care of pt at 1700, vss, ETOH, reporting 9/10 left ankle pain, boot at bedside.
[2024-03-11 17:57] LABS: White Blood Count 2.3 X10*3/uL (4.8-10.8)
[2024-03-11 17:59] LABS: Platelet Count 37 X10*3/uL (160-400)
[2024-03-11 18:02] LABS: SLIDE REVIEW VERIFIED
[2024-03-11] MEDS: Potassium Chloride ER 20 MEQ TAB.ER.PRT 60 MEQ PO (18:42)
[2024-03-11 18:47] VITALS: BP 100/55; PULSE 83; RESP 14; TEMP 37; O2SAT 94
[2024-03-11 18:52] LABS: Magnesium 1.8 mg/dL (1.6-2.6)
== END 2024-03-11 18:47 | disposition home or self-care (01) ==
PROVIDERS: Emergency Provider Student in an Organized Health Care Education/Training Program
DX: F10.129 Alcohol abuse with intoxication, unspecified (principal); M79.672 Pain in left foot; Y90.8 Blood alcohol level of 240 mg/100 ml or more; E87.6 Hypokalemia; Z79.899 Other long term (current) drug therapy
CPT/HCPCS: 36415; 73610; 80053; 83735; 85025; 99283; 99284

== ENCOUNTER 2024-03-11 23:52 | Emergency (ER) | payer MEDICAID, SELFPAY ==
--- NOTE | 2024-03-12 00:09 | ED_ITS ---
HPI - Alcohol General Chief Complaint: ETOH/Substance Use Stated Complaint: etoh Time Seen by Provider: 03/12/24 00:06 Source: patient and old records reviewed Mode of arrival: EMS Limitations: no limitations History of Present Illness HPI narrative: 54 yo male with PMH of ETOh abuse, anemia, leg edema, cirrhosis, here with c/o needing intermediate hx of same has been here almost every night presented to fire station no SI, no head trauma MD complaint: alcohol intoxication and alcohol dependence Last drink: Hours (ago) Chronic alcohol use: Yes Previous visits for alcohol intoxication: Yes Recent trauma: No Associated symptoms: denies other symptoms Treatments prior to arrival: none Related Data Previous Rx's ?Medication ?Instructions ?Recorded amoxicillin 875 mg-potassium 1 tab PO Q12H #10 tabs 01/27/24 clavulanate 125 mg tablet nadolol 20 mg tablet 10 mg PO DAILY #10 tabs 01/27/24 omeprazole 40 mg capsule,delayed 40 mg PO DAILY@0630 #30 caps 01/27/24 release sucralfate 1 gram tablet 1 g PO BIDAC #180 tabs 01/27/24 Allergies Allergy/AdvReac Type Severity Reaction Status Date / Time No Known Allergies Allergy Verified 03/12/24 00:22 [No Known Allergies*] Review of Systems Review of Systems: Constitutional : No Fever, No Chills, No Fatigue ENT/Mouth : No sore throat, No Rhinorrhea Eyes: No Eye Pain, No Swelling, No Redness Cardiovascular : No Chest Pain, No SOB, No Dyspnea on Exertion Respiratory : No Cough, No Sputum Gastrointestinal : No Nausea, No Vomiting, No Diarrhea, No abdominal Pain Genitourinary : No Dysuria, No Urinary Frequency, No Hematuria, Musculoskeletal : No joint pain, No Myalgias, No Joint Swelling Skin : No Skin Lesions, No rash Neuro : No Weakness, No Numbness, No Dizziness, no Headache Psych : No Anxiety/Panic, No Depression All other systems reviewed and are negative PMFSH Past Medical History Attestation statement: The following information was validated with the patient. Source: old records reviewed Medical History Thrombocytopenia Alcohol withdrawal syndrome Cirrhosis Malnutrition CHF (congestive heart failure) Anemia Aspiration pneumonia Pneumonia Hypomagnesemia Thrombocytopenia Alcoholic liver disease Acute on chronic anemia CHF (congestive heart failure) Anemia Alcohol abuse Surgical History No history of previous surgery Social History Social History Household Members: None Household Members Other:: pt homeless Housing: Homeless Housing Other:: homeless Do you presently have visiting nurse or other home services: No Alcohol intake: current Alcohol intake frequency: 3 or more drinks per day Alcohol type: hard liquor Comment: 1 assist to bathroom Patient Tobacco Use Status: Former Tobacco user Quit Date: 12 years ago Tobacco use type: Cigarette Second Hand Smoke Exposure: No Advance Directives: Yes Advance Directives on File: Yes Advance Directives Date on File: 07/13/23 Do you have a plan to hurt others: No Plan service: No Physical Exam ED Vital Signs: Vital Signs - 24 hr 03/12/24 00:16 03/12/24 00:18 Temperature 98.0 F Pulse Rate 79 Respiratory Rate 18 18 Blood Pressure 117/62 Pulse Oximetry 96 Oxygen Delivery Method Room Air BMI result Body Mass Index 19.4 Appearance: Alert. Oriented X3. No acute distress. Eyes: Pupils equal, round and reactive to light. ENT: Pharynx normal. atraumatic Neck: Normal inspection. Neck supple. CVS: Normal heart rate and rhythm. Pulses normal. Respiratory: No respiratory distress. Breath sounds normal. Abdomen: Soft and non-tender. Skin: Skin warm and dry. Normal skin color. Normal skin turgor. Extremities: 1+ symmetric bilateral pitting edema Neuro: Oriented X 3. No motor deficit. No sensory deficit. Course Course Course Narrative: observation care revealed that the patient does not meet medical necessity for hospitalization. final disposition discussed with the patient. The patient completed observation care at 6am. Total time in observation care was 6 hours. Medical Decision Making Medical Decision Making [facility] Narrative: 54 yo male with PMH of cirrhosis, anemia, ETOH abuse here with c/o ETOH and needing intermediate hx of same in past at this time will allow him to stay and observe no SI, no signs of trauma has been here almost every night appears at his baseline has no new complaints. Differential Diagnosis Differential Diagnoses: The differential diagnosis associated with the presentation includes alcohol use disorder Admission/Observation Consideration of admission/observation: Escalation of care including admission/observation considered physician observation started at 1215am until patient is clinically sober Independent Historian Clinical information obtained from an independent historian. History obtained from or confirmed by: EMS External Record Review External record reviewed: Inpatient record Social Determinants Patient?s care significantly limited by Social Determinants of Health including: Inadequate housing, Problems related to primary support group and Unemployment Discharge Plan Discharge Clinical Impression: Alcohol use disorder Patient Disposition: Home, Self-Care Instructions: Alcohol Use Disorder (ED) Additional Instructions: please limit your alcohol intake Prescriptions: No Action nadolol 20 mg Tablet 10 mg PO DAILY Qty: 10 0RF Protocol: Hold for SBP/HR < HOLD for SBP < : 90 HOLD for HR < : 60 amoxicillin-pot clavulanate 875-125 mg Tablet 1 tab PO Q12H Qty: 10 0RF sucralfate 1 gram Tablet 1 g PO BIDAC Qty: 180 0RF omeprazole 40 mg Capsule,Delayed Release(Dr/Ec) 40 mg PO DAILY@0630 Qty: 30 0RF Print Language: Moldovan
[2024-03-12 00:16] VITALS: RESP 18
[2024-03-12 00:18] VITALS: BP 117/62; BP 126/78; PULSE 79; RESP 18; TEMP 36.7; O2SAT 96; O2SAT 98; BMI 19.4
--- NOTE | 2024-03-12 00:36 | MHC.EDTECH ---
Patient supervisor records change into hospital attire All belongings are locked ED pod Locker 2
[2024-03-12 06:11] VITALS: BP 131/72; PULSE 81; RESP 16; TEMP 36.6; O2SAT 97
== END 2024-03-12 06:58 | disposition home or self-care (01) ==
PROVIDERS: Emergency Provider Emergency Medicine
DX: F10.10 Alcohol abuse, uncomplicated (principal); Z59.02 Unsheltered homelessness
CPT/HCPCS: 99284

== ENCOUNTER 2024-03-12 20:56 | Emergency (ER) | payer MEDICAID, SELFPAY ==
--- NOTE | ~2024-03-12 | US_ITS ---
EXAMINATION: US VENOUS ULTRASOUND WITH DOPPLER LOWER EXTREMITY, LEFT CLINICAL INFORMATION: Swelling, pain COMPARISON: None available. TECHNIQUE: Ultrasound of the deep veins is performed from the hip to the calf with compression sonography and color and pulse Doppler assessment. Spectral analysis with color-flow imaging is performed. FINDINGS: There is normal venous compression and respiratory variation and augmented flow. The visualized common femoral vein, superficial femoral vein, profunda femoral vein, popliteal vein, and the trifurcation region shows no evidence of deep venous thrombosis. Left popliteal fossa cyst measures 2.6 x 0.6 x 1.8 cm. Subcutaneous edema noted in the lower leg. A couple prominent inguinal lymph nodes may be reactive. If the patient's symptoms persist, followup ultrasound in 5 days 7 days might be of value to exclude proximal propagation from a non-visualized calf vein. US/US venous duplex LE IMPRESSION: 1. No DVT demonstrated in the left lower extremity. 2. Left popliteal fossa cyst measuring up to 2.6 cm.
--- NOTE | ~2024-03-12 | CT_ITS ---
EXAMINATION: CT LEFT ANKLE WITHOUT CONTRAST CLINICAL INDICATION: Rule out tibia/fibular fracture COMPARISON: Radiographs 03/11/2024 TECHNIQUE: No intravenous contrast was utilized. Multidetector helical imaging was performed through the left ankle. Coronal and sagittal reformatted images were created. DLP: 198 mGy-cm DOSE LOWERING TECHNIQUES: This CT examination was performed using dose optimization techniques as appropriate, variously including the following: - Automated exposure control - Adjustment of mA and/or kV according to patient size (this includes techniques or standardized protocols for targeted exams were dose is matched to indication/reason for exam; i.e. extremities or head) - Use of iterative reconstruction technique FINDINGS: Osseous alignment across the ankle is anatomic. Redemonstrated curvilinear sclerosis in the tibial metaphysis suspicious for sequelae of stress fracture. No displaced fracture is seen. Osteopenia noted in the distal tibia. No additional suspicious focal osseous abnormality is seen. Vascular calcification is present. There is diffuse subcutaneous edema/reticulation along with skin thickening. CT/CT ankle LT wo IV con IMPRESSION: 1. Curvilinear sclerosis in the distal tibial metaphysis suspicious for sequelae of stress fracture. 2. Diffuse subcutaneous edema/reticulation and skin thickening.
[2024-03-12 21:06] VITALS: BP 120/86; PULSE 88; O2SAT 95
--- NOTE | 2024-03-12 21:12 | ED_ITS ---
HPI - Alcohol General Chief Complaint: Extremity Injury, Lower Stated Complaint: ETOH, L FOOT PAIN Time Seen by Provider: 03/12/24 21:12 Source: patient and EMS Mode of arrival: EMS Limitations: no limitations History of Present Illness HPI narrative: Patient comes to the emergency room complaining of alcohol intoxication and chronic foot pain. No changes from previous visits. Patient denies SI or HI. Today is the patient's 14th visit in this month for the same complaint. Related Data Previous Rx's ?Medication ?Instructions ?Recorded amoxicillin 875 mg-potassium 1 tab PO Q12H #10 tabs 01/27/24 clavulanate 125 mg tablet nadolol 20 mg tablet 10 mg PO DAILY #10 tabs 01/27/24 omeprazole 40 mg capsule,delayed 40 mg PO DAILY@0630 #30 caps 01/27/24 release sucralfate 1 gram tablet 1 g PO BIDAC #180 tabs 01/27/24 Allergies Allergy/AdvReac Type Severity Reaction Status Date / Time No Known Allergies Allergy Verified 03/12/24 21:29 [No Known Allergies*] Review of Systems Review of Systems: Constitutional : No Weight loss, No Fever, No Chills, No Night Sweats, No Fatigue, No Malaise ENT/Mouth : No Hearing loss, No Ear Pain, No Nasal Congestion, No Sinus Pain, No Hoarseness, No sore throat, No Rhinorrhea, No Swallowing Difficulty Eyes: No Eye Pain, No Swelling, No Redness, No Foreign Body, No Discharge, No Vision Changes Cardiovascular : No Chest Pain, No SOB, No Dyspnea on Exertion, No Orthopnea, No Edema, No Palpitations Respiratory : No Cough, No Sputum, No Wheezing, No Smoke Exposure, No Dyspnea Gastrointestinal : No Nausea, No Vomiting, No Diarrhea, No Constipation, No abdominal Pain, No Hematochezia, No Melena Genitourinary : no irregular bleeding, No Dysuria, No Urinary Frequency, No Hematuria, No Urinary Incontinence, No Urgency, No Flank Pain, No Urinary Flow Changes, No Hesitancy Musculoskeletal : Chronic joint pain, no new complaints or injuries. No Myalgias, No Joint Swelling Skin : No Skin Lesions, No rash Neuro : No Weakness, No Numbness, No Paresthesias, No Loss of Consciousness, No Dizziness, No Headache Psych : No Anxiety/Panic, No Depression, No SI/HI/AH/VH, meds to alcohol abuse Heme/Lymph: No Bruising, No Bleeding,No Lymphadenopathy Endocrine : No Polyuria, No Polydipsia, No Temperature Intolerance [facility] Past Medical History Medical History Thrombocytopenia Alcohol withdrawal syndrome Cirrhosis Malnutrition CHF (congestive heart failure) Anemia Aspiration pneumonia Pneumonia Hypomagnesemia Thrombocytopenia Alcoholic liver disease Acute on chronic anemia CHF (congestive heart failure) Anemia Alcohol abuse Surgical History No history of previous surgery Social History Social History Household Members: None Household Members Other:: pt homeless Housing: Homeless Housing Other:: homeless Do you presently have visiting nurse or other home services: No Alcohol intake: current Alcohol intake frequency: 3 or more drinks per day Alcohol type: hard liquor Comment: 1 assist to bathroom Patient Tobacco Use Status: Former Tobacco user Quit Date: 12 years ago Tobacco use type: Cigarette Second Hand Smoke Exposure: No Advance Directives: Yes Advance Directives on File: Yes Advance Directives Date on File: 07/13/23 service: No Physical Exam ED Vital Signs: Vital Signs - 24 hr 03/12/24 21:23 Temperature 97.9 F Pulse Rate 90 Respiratory Rate 18 Blood Pressure 116/70 Pulse Oximetry 94 Oxygen Delivery Method Room Air BMI result Body Mass Index 21.9 Const Other: Appearance: Alert. Oriented X3. No acute distress. Intoxicated, slurring words Eyes: Pupils equal, round and reactive to light. ENT: Pharynx normal. Neck: Normal inspection. Neck supple. No lymph nodes noted. No crepitus CVS: Normal heart rate and rhythm. Pulses normal. Normal S1 and S2 Respiratory: No respiratory distress. Breath sounds normal. No Wheezing. No rales Abdomen: Soft and nontender. No rigidity. No distention. Skin: Skin warm and dry. Normal skin color. Normal skin turgor. Extremities: No lower extremity edema. No Lacerations. No Rash Neuro: Oriented X 3. No motor deficit. No sensory deficit. Moving all extremities. CN 2 through 12 grossly intact Psych: calm, cooperative, normal affect Course Course Course Narrative: Patient reports no injuries or falls -plan: Metabolize to freedom Medical Decision Making Differential Diagnosis Differential Diagnoses: The differential diagnosis associated with the presentation includes (Alcohol intoxication, polysubstance abuse) Admission/Observation Consideration of admission/observation: Escalation of care including admission/observation considered (Patient under physician observation, waiting to be mostly were to be discharged.) Critical Care Time Critical Care Time Critical Care Time: Yes Total Critical Care Time: 35 Attestation: I have personally provided critical care time. Time includes review of lab data, radiology results, discussion with consultants, and monitoring for potential decompensation. Intervention performed as documented. Discharge Plan Discharge Clinical Impression: Alcohol intoxication Patient Disposition: Still a Patient Prescriptions: No Action nadolol 20 mg Tablet 10 mg PO DAILY Qty: 10 0RF Protocol: Hold for SBP/HR < HOLD for SBP < : 90 HOLD for HR < : 60 amoxicillin-pot clavulanate 875-125 mg Tablet 1 tab PO Q12H Qty: 10 0RF sucralfate 1 gram Tablet 1 g PO BIDAC Qty: 180 0RF omeprazole 40 mg Capsule,Delayed Release(Dr/Ec) 40 mg PO DAILY@0630 Qty: 30 0RF Print Language: Croatian
[2024-03-12 21:23] VITALS: BP 116/70; PULSE 90; RESP 18; TEMP 36.6; O2SAT 94; BMI 21.9
[2024-03-13 01:19] VITALS: RESP 14
--- NOTE | 2024-03-13 01:19 | PC.NURSE ---
Pt sleeping at the bedside. No apparent distress noted. Breaths are even regular and unlabored. Monitoring is ongoing.
[2024-03-13 04:56] VITALS: RESP 14
[2024-03-13 06:27] VITALS: RESP 14
--- NOTE | 2024-03-13 08:55 | PC.NURSE ---
patient left before receiving d/c paperwork
== END 2024-03-13 08:55 | disposition home or self-care (01) ==
PROVIDERS: Emergency Provider Emergency Medicine Emergency Medical Services
DX: F10.129 Alcohol abuse with intoxication, unspecified (principal); Y90.9 Presence of alcohol in blood, level not specified; M25.572 Pain in left ankle and joints of left foot; M25.472 Effusion, left ankle; M71.22 Synovial cyst of popliteal space [Baker], left knee; Z59.02 Unsheltered homelessness
CPT/HCPCS: 73700; 93971; 99284

== ENCOUNTER 2024-03-13 15:40 | Emergency (ER) | payer MEDICAID, SELFPAY ==
[2024-03-13 15:56] VITALS: BP 142/78; PULSE 88; O2SAT 96
[2024-03-13 16:08] VITALS: BP 128/70; PULSE 91; RESP 16; TEMP 36.9; O2SAT 92
--- NOTE | 2024-03-13 16:45 | ED_ITS ---
HPI - Extremity Injury (Lower) General Chief Complaint: Extremity Injury, Lower Stated Complaint: left foot pain and swelling, ETOH Time Seen by Provider: 03/13/24 16:36 Source: patient and EMS Mode of arrival: EMS Limitations: other (poor historian ) History of Present Illness HPI Narrative: 54-year-old male history of alcohol use disorder, esophageal varices, hepatic encephalopathy, recently diagnosed with a stress fracture to his left lower extremity, distal tibial metaphysis presenting with pain at site and swelling. He was seen and discharged this morning, however he went to the fire department told him that he was in pain so they advised him to come in to be evaluated. He states pain has not changed swelling has not changed. He has been drinking this afternoon unclear how much. Patient alert and oriented x4. Has been wearing a walking boot for comfort. Denies numbness, tingling, fevers, chills, chest pain, shortness of breath, nausea, vomiting, abdominal pain. Related Data Previous Rx's ?Medication ?Instructions ?Recorded amoxicillin 875 mg-potassium 1 tab PO Q12H #10 tabs 01/27/24 clavulanate 125 mg tablet nadolol 20 mg tablet 10 mg PO DAILY #10 tabs 01/27/24 omeprazole 40 mg capsule,delayed 40 mg PO DAILY@0630 #30 caps 01/27/24 release sucralfate 1 gram tablet 1 g PO BIDAC #180 tabs 01/27/24 acetaminophen 325 mg capsule 325 mg PO Q4H PRN pain #30 caps 03/13/24 (Tylenol) Allergies Allergy/AdvReac Type Severity Reaction Status Date / Time No Known Allergies Allergy Verified 03/13/24 16:11 [No Known Allergies*] Review of Systems Review of Systems: Yes all other systems are reviewed and are negative [facility] Past Medical History Attestation statement: The following information was validated with the patient. Source: old records reviewed and nursing notes reviewed Medical History Thrombocytopenia Alcohol withdrawal syndrome Cirrhosis Malnutrition CHF (congestive heart failure) Anemia Aspiration pneumonia Pneumonia Hypomagnesemia Thrombocytopenia Alcoholic liver disease Acute on chronic anemia CHF (congestive heart failure) Anemia Alcohol abuse Surgical History No history of previous surgery Social History Social History Household Members: None Household Members Other:: pt homeless Housing: Homeless Housing Other:: homeless Do you presently have visiting nurse or other home services: No Alcohol intake: current Alcohol intake frequency: 3 or more drinks per day Alcohol type: beer and hard liquor Comment: 1 assist to bathroom Patient Tobacco Use Status: Former Tobacco user Quit Date: 12 years ago Tobacco use type: Cigarette Second Hand Smoke Exposure: No Advance Directives: Yes Advance Directives on File: Yes Advance Directives Date on File: 07/13/23 Do you have a plan to hurt others: No Plan service: No Physical Exam Vital Signs: Vital Signs: Last Vital Signs Temp 98.5 F 03/13/24 16:08 Pulse 91 03/13/24 16:08 Resp 16 03/13/24 16:08 BP 128/70 03/13/24 16:08 Pulse Ox 92 03/13/24 16:08 O2 Del Method Room Air 03/13/24 16:08 BMI result Body Mass Index 20.0 vss Appearance: Alert.? Oriented X3.? No acute distress.? Head: Normocephalic, atraumatic, no step-offs or deformities Eyes: Pupils equal, round and reactive to light.? CVS: Normal heart rate and rhythm.? Pulses normal.? Respiratory: No respiratory distress.? Breath sounds normal.? Abdomen: Soft and nontender.? Skin: Skin warm and dry.? Normal skin color.? Normal skin turgor.? Extremities:1+ symmetric bilateral pitting edema.? No calf ttp. 5/5 strength to bilateral upper and lower extremities 2+ dorsalis pedis, anterior tibialis posterior tibialis pulses equal bilateral. Normal sensation distally. Ambulating with walking boot without difficulty Back: No midline tenderness, no C-spine tenderness, full range of motion, no CVA tenderness bilaterally Neuro: Oriented X 3.? No motor deficit.? No sensory deficit. CN 2-12 intact Course Reevaluation(s) Reevaluation #1: Educated patient on diagnosis and treatment plan, answered all question, patient verbalizes understanding. At this time patient will be discharged home, advised to return with new or worsening symptoms. Educated on worrisome signs and symptoms and when to return. At this time I feel comfortable discharge home. Time: 16:55 Medical Decision Making Medical Decision Making [facility] Narrative: [id number] 54-year-old male presents with left leg pain and swelling, reports he has a fracture he was just told this, has been wearing a walking boot. He told the fire department he was in pain so they told him to come in. He has been seen here 3 times in the past day. Over the past week he has been here over 4 5 times. For similar complaints. Patient does endorse alcohol consumption Physical exam unchanged History and physical exam concerning for pain secondary to stress fracture. Unlikely arterial or venous occlusion. No signs of neurovascular compromise or acute threat to limb. No new trauma. No signs of trauma to head, neck, chest, abdomen or pelvis. Imaging was obtained this morning CT and ultrasound, please refer to visit from earlier to look at results, however CT scan did show a curvilinear sclerosis in the distal tibial metaphysis suspicious for sequelae of stress fracture, diffuse subcutaneous edema reticulation of skin thickening, ultrasound venous duplex lower extremity left no DVT, left popliteal fossa cyst. Plan at this time will discharge patient with supportive measures, should continue to use walking boot will give Tylenol for pain, will have him follow-up with the orthopedic team. Differential Diagnosis Differential Diagnoses: The differential diagnosis associated with the presentation includes History and physical exam concerning for pain secondary to stress fracture. Unlikely arterial or venous occlusion. No signs of neurovascular compromise or acute threat to limb. No new trauma. No signs of trauma to head, neck, chest, abdomen or pelvis. Admission/Observation Consideration of admission/observation: Escalation of care including admission/observation considered Unlikely Independent Interpretation I performed an independent interpretation of an: Ultrasound (From earlier) and CT Scan (From earlier) Radiology Impression Discussion of test interpretation with radiology: I have reviewed the radiologist's reading. Tests considered The following testing was considered but not selected: Considered do imaging however imaging was obtained within the last 24 hours, no new trauma no indication for imaging to head, neck, chest, abdomen and pelvis. Prescription Management I considered prescription management with: Pain Medication (Tylenol) Chronic Conditions Patient?s care impacted by: Other (Alcohol use disorder, hepatic encephalopathy, esophageal varices, alcohol withdrawal) Critical Care Time Critical Care Time Critical Care Time: No Discharge Plan Discharge Clinical Impression: Left leg pain, Alcohol intoxication, Stress fracture Patient Disposition: Home, Self-Care Instructions: Leg Pain (ED) Additional Instructions: Take your medications as prescribed. If you were prescribed antibiotics today, it is important that you take your medication to their entirety, do not skip any doses, do not finish them early. Follow-up with your primary care provider this week. Return to the emergency department with new or worsening symptoms. In case of emergency call 911 Wear your walking boot, follow up with orthopedics. US/US venous duplex LE LT IMPRESSION: 1. No DVT demonstrated in the left lower extremity. 2. Left popliteal fossa cyst measuring up to 2.[address]/CT ankle LT wo IV con IMPRESSION: 1. Curvilinear sclerosis in the distal tibial metaphysis suspicious for sequelae of stress fracture. 2. Diffuse subcutaneous edema/reticulation and skin thickening. Prescriptions: New acetaminophen [Tylenol] 325 mg capsule 325 mg PO Q4H PRN (Reason: pain) Qty: 30 0RF No Action nadolol 20 mg Tablet 10 mg PO DAILY Qty: 10 0RF Protocol: Hold for SBP/HR < HOLD for SBP < : 90 HOLD for HR < : 60 amoxicillin-pot clavulanate 875-125 mg Tablet 1 tab PO Q12H Qty: 10 0RF sucralfate 1 gram Tablet 1 g PO BIDAC Qty: 180 0RF omeprazole 40 mg Capsule,Delayed Release(Dr/Ec) 40 mg PO DAILY@0630 Qty: 30 0RF Referrals: [facility] [Primary Care Provider] - 2 days Print Language: Serbian
[2024-03-13 17:43] VITALS: BP 128/70; PULSE 91; RESP 16; TEMP 36.9; O2SAT 92
== END 2024-03-13 17:53 | disposition home or self-care (01) ==
PROVIDERS: Emergency Provider Emergency Medicine
DX: M79.605 Pain in left leg (principal); R60.0 Localized edema; S82.392D Other fracture of lower end of left tibia, subsequent encounter for closed fracture with routine healing; X50.1XXD Overexertion from prolonged static or awkward postures, subsequent encounter; F10.120 Alcohol abuse with intoxication, uncomplicated; Y90.9 Presence of alcohol in blood, level not specified; Z87.891 Personal history of nicotine dependence
CPT/HCPCS: 99282

== ENCOUNTER 2024-03-13 21:37 | Emergency (ER) | payer MEDICAID, SELFPAY ==
[2024-03-13 21:40] VITALS: BP 176/92; PULSE 81; O2SAT 98
[2024-03-13 21:42] VITALS: BP 178/80; PULSE 80; RESP 18; TEMP 36.6; O2SAT 98; BMI 27.5
[2024-03-14 00:14] LABS: Basophils Percent Auto 1.3 % (0-2); Eosinophils Absolute Auto 0.1 X10*3/uL (0.0-0.4); Eosinophils Percent Auto 6.2 % (0-4); Hemoglobin 8.7 g/dl (14.0-18.0); Lymphocytes Absolute Auto 0.9 X10*3/uL (1.2-4.9); Lymphocytes Percent Auto 39.2 % (20-40); MANUAL DIFF FLAG SCAN; Mean Corpuscular HGB Conc 32.2 g/dl (31.0-36.0); Mean Corpuscular Hemoglobin 31.4 pg (27.0-33.0); Mean Corpuscular Volume 97.5 fL (80.0-98.0); Mean Platelet Volume 11.1 fL (9.4-12.4); Monocytes Absolute Auto 0.3 X10*3/uL (0.1-1.2); Monocytes Percent Auto 11.5 % (2-11); Neutrophils Percent Auto 41.8 % (45-73); Platelet Count 38 X10*3/uL (160-400); Red Blood Count 2.77 X10*6/uL (4.60-5.80); Red Cell Distribution Width 16.1 % (11.0-16.0); SCAN SMEAR FLAG 1; White Blood Count 2.3 X10*3/uL (4.8-10.8)
[2024-03-14 00:26] LABS: SLIDE REVIEW VERIFIED
[2024-03-14 00:38] LABS: Alanine Aminotransferase 9 U/L (0-40); Albumin Level 3.2 g/dL (3.5-5.0); Alkaline Phosphatase 150 U/L (39-117); Anion Gap 13 (12-20); Aspartate Amino Transferase 42 U/L (5-37); Bilirubin Total 0.4 mg/dL (0.0-1.0); Blood Urea Nitrogen 9 mg/dL (9-16); Calcium 8.4 mg/dL (8.4-10.2); Carbon Dioxide 24 mmol/L (22-29); Chloride 113 mmol/L (96-108); Creatinine Clr Calc Pharmacy 89.6; Estimated Glomerular Filt Rate > 60; Glucose Random 105 mg/dL (60-115); Potassium 3.8 mmol/L (3.3-5.1); Sodium 146 mmol/L (135-145); Total Protein 7.5 g/dL (6.5-8.0)
[2024-03-14] MEDS: Oxymetazoline HCl 0.05 % Nasal 15 ML SPRAY 3 SPRAY NOSTRIL-B (00:59)
[2024-03-14 02:45] VITALS: BP 108/56; PULSE 86; RESP 20; TEMP 36.6; O2SAT 97
--- NOTE | 2024-03-14 04:13 | ED.GENADULT ---
HPI - General Adult General Chief complaint: Epistaxis Stated complaint: nose bleed, left leg swelling, ETOH Time Seen by Provider: 03/14/24 00:43 History of Present Illness HPI narrative: The patient is a 54-year-old male who is homeless and is also an alcoholic. He comes to this hospital's emergency room often. Today's visit is the 28th emergency room visit in the last 2 months. The patient was brought to the hospital by ambulance because of his alcohol intoxication and also because of some bleeding from the left nostril. The patient has had nosebleeds previously recently. Last came to the emergency room on January 19 for a nosebleed. The patient denies any trauma. Related Data Previous Rx's ?Medication ?Instructions ?Recorded amoxicillin 875 mg-potassium 1 tab PO Q12H #10 tabs 01/27/24 clavulanate 125 mg tablet nadolol 20 mg tablet 10 mg PO DAILY #10 tabs 01/27/24 omeprazole 40 mg capsule,delayed 40 mg PO DAILY@0630 #30 caps 01/27/24 release sucralfate 1 gram tablet 1 g PO BIDAC #180 tabs 01/27/24 acetaminophen 325 mg capsule 325 mg PO Q4H PRN pain #30 caps 03/13/24 (Tylenol) Allergies Allergy/AdvReac Type Severity Reaction Status Date / Time No Known Allergies Allergy Verified 03/13/24 21:43 [No Known Allergies*] Review of Systems Review of Systems: Yes all other systems are reviewed and are negative PMFSH Past Medical History Medical History Thrombocytopenia Alcohol withdrawal syndrome Cirrhosis Malnutrition CHF (congestive heart failure) Anemia Aspiration pneumonia Pneumonia Hypomagnesemia Thrombocytopenia Alcoholic liver disease Acute on chronic anemia CHF (congestive heart failure) Anemia Alcohol abuse Surgical History No history of previous surgery Social History Social History Household Members: None Household Members Other:: pt homeless Housing: Homeless Housing Other:: homeless Do you presently have visiting nurse or other home services: No Alcohol intake: current Alcohol intake frequency: 3 or more drinks per day Alcohol type: beer and hard liquor Comment: 1 assist to bathroom Patient Tobacco Use Status: Former Tobacco user Quit Date: 12 years ago Tobacco use type: Cigarette Smoked in Last 30 Days: Yes Second Hand Smoke Exposure: No Use of substances other than those prescribed or required for medical reasons: No Advance Directives: Yes Advance Directives on File: Yes Advance Directives Date on File: 07/13/23 Do you have a plan to hurt others: No Plan service: No Physical Exam ED Vital Signs: Vital Signs - 24 hr 03/13/24 21:42 03/14/24 02:45 Temperature 98 F 97.8 F Pulse Rate 80 86 Respiratory Rate 18 20 Blood Pressure 178/80 H 108/56 L Pulse Oximetry 98 97 Oxygen Delivery Method Room Air Room Air BMI result Body Mass Index 27.5 Const Other: The patient was asleep and had curled up under a blanket. He seemed to be sleeping peacefully. He awoke with some difficulty. Did not seem in acute distress and there was no active bleeding. HENMT Other: There was some dried blood at both nares, mostly on the left side. No active bleeding Eyes Other: Pupils are round equal, conjunctivae are clear Neck Other: Moving his neck easily Resp Effort & Inspection: normal respiratory effort Auscultation: clear to auscultation bilaterally Cardio Rate: regular rate Rhythm: regular rhythm Heart sounds: S1 normal heart sound present and S2 normal heart sound present GI Other: Abdomen is soft and nontender Skin Other: Skin is dry and unremarkable. Neuro Other: The patient was sleepy but arousable. When he spoke he spoke with a slurred speech consistent with alcohol intoxication. His face is symmetrical. He moves his extremities symmetrically. Extrem Other: No signs of injury to the extremities Medications Administered Discontinued Medications Generic Name Dose Route Start Last Admin Trade Name David PRN Reason Stop Dose Admin Oxymetazoline HCl 3 spray 03/14/24 00:46 03/14/24 00:59 Oxymetazoline Hcl 0.05 % Nasal 15 Ml Roosevelt NOSTRIL-B 03/14/24 00:47 3 spray ONCE ONE Administration Medical Decision Making Medical Decision Making MDM Narrative: The patient is a chronic alcoholic who was also homeless and who comes to the emergency room with a great deal of frequency who presents intoxicated with a left-sided nosebleed that stopped spontaneously. Administered some Afrin to both nostrils but the patient would not allow me to examine him comprehensively. He told me he only wanted to rest. Labs have been done that showed a hemoglobin of 8.7 which seems to be the near the patient's baseline. Metabolic panel is unremarkable. At the end of my shift the patient has been sleeping. There has been no recurrence of any nose bleeding. The patient would not allow me to examine him more comprehensively and he was feels seemingly fairly intoxicated. I will be signing the patient out to the oncoming emergency physician that the patient will sleep for several hours in the emergency room and then possibly requests discharge in the morning. This is his usual behavior when he comes to the emergency room. Lab Data 03/14/24 00:04 03/14/24 00:04 Labs: Lab Results 03/14/24 Range/Units 00:04 WBC 2.3 L (4.8-10.8) X10*3/uL RBC 2.77 L (4.60-5.80) X10*6/uL Hgb 8.7 L (14.0-18.0) g/dl Hct 27.0 L (42.0-52.0) % MCV 97.5 (80.0-98.0) fL MCH 31.4 (27.0-33.0) pg MCHC 32.2 (31.0-36.0) g/dl RDW 16.1 H (11.0-16.0) % Plt Count 38 L (160-400) X10*3/uL MPV 11.1 (9.4-12.4) fL Immature Gran % (Auto) 0.0 (0.0-0.4) % Neut % (Auto) 41.8 L (45-73) % Lymph % (Auto) 39.2 (20-40) % Cameron % (Auto) 11.5 H (2-11) % Eos % (Auto) 6.2 H (0-4) % Baso % (Auto) 1.3 (0-2) % Lymph # (Auto) 0.9 L (1.2-4.9) X10*3/uL Cameron # (Auto) 0.3 (0.1-1.2) X10*3/uL Eos # (Auto) 0.1 (0.0-0.4) X10*3/uL Baso # (Auto) 0.0 (0.0-0.2) X10*3/uL Abs Immat Gran (auto) 0.00 (0.00-0.03) X10*3/uL Absolute Neuts (auto) 1.0 L (2.0-8.3) x10*3/uL Absolute Nucleated RBC 0.000 (0.0-0.012) X10*3/uL Nucleated RBC % (auto) 0.0 (0.0-0.2) /100WBC Smear Tech's Comments VERIFIED Sodium 146 H (135-145) mmol/L Potassium 3.8 (3.3-5.1) mmol/L Chloride 113 H (96-108) mmol/L Carbon Dioxide 24 (22-29) mmol/L Anion Gap 13 (12-20) BUN 9 (9-16) mg/dL Creatinine 0.85 (0.5-1.4) mg/dL Estim Creat Clear Calc 89.6 Estimated GFR > 60 Random Glucose 105 (60-115) mg/dL Calcium 8.4 (8.4-10.2) mg/dL Total Bilirubin 0.4 (0.0-1.0) mg/dL AST 42 H (5-37) U/L ALT 9 (0-40) U/L Alkaline Phosphatase 150 H (39-117) U/L Total Protein 7.5 (6.5-8.0) g/dL Albumin 3.2 L (3.5-5.0) g/dL Discharge Plan Discharge Clinical Impression: Left-sided epistaxis, Alcohol intoxication, Alcoholism, Homeless Patient Disposition: Still a Patient Additional Instructions: Please do your best to reduce alcohol use. Please try to follow up with the [facility]. Return to the emergency room if worse. Prescriptions: No Action acetaminophen [Tylenol] 325 mg capsule 325 mg PO Q4H PRN (Reason: pain) Qty: 30 0RF nadolol 20 mg Tablet 10 mg PO DAILY Qty: 10 0RF Protocol: Hold for SBP/HR < HOLD for SBP < : 90 HOLD for HR < : 60 amoxicillin-pot clavulanate 875-125 mg Tablet 1 tab PO Q12H Qty: 10 0RF sucralfate 1 gram Tablet 1 g PO BIDAC Qty: 180 0RF omeprazole 40 mg Capsule,Delayed Release(Dr/Ec) 40 mg PO DAILY@0630 Qty: 30 0RF Referrals: [facility] [Provider Group] (Alcoholism, nosebleeds) Print Language: Lithuanian
[2024-03-14 06:32] VITALS: BP 111/72; PULSE 84; RESP 20; TEMP 36.7; O2SAT 91
[2024-03-14 10:42] VITALS: BP 112/51; PULSE 77; RESP 16; TEMP 37; O2SAT 94
[2024-03-14 10:44] VITALS: BP 112/51; PULSE 77; RESP 16; TEMP 37; O2SAT 94
== END 2024-03-14 10:45 | disposition home or self-care (01) ==
PROVIDERS: Emergency Medicine; Emergency Provider Emergency Medicine
DX: R04.0 Epistaxis (principal); F10.220 Alcohol dependence with intoxication, uncomplicated; Y90.9 Presence of alcohol in blood, level not specified; Z87.891 Personal history of nicotine dependence; Z59.00 Homelessness unspecified
CPT/HCPCS: 36415; 80053; 85025; 99283; 99284

== ENCOUNTER 2024-03-16 21:55 | Emergency (ER) | payer MEDICAID, SELFPAY ==
[2024-03-16 22:09] VITALS: BP 134/80; PULSE 82; O2SAT 99
[2024-03-16 22:26] VITALS: BP 125/69; PULSE 80; RESP 18; TEMP 36.4; O2SAT 96; BMI 20.3
--- NOTE | 2024-03-17 01:13 | ED.ALCOHOL ---
HPI - Alcohol General Chief Complaint: Extremity Problem Stated Complaint[place] [facility] [place], ETOH Time Seen by Provider: 03/17/24 00:46 Source: patient Mode of arrival: EMS Limitations: no limitations History of Present Illness HPI narrative: Patient alcoholic with chronic leg swelling been here multiple times for same today brought by EMS for same intoxicated looking for a place to sleep Related Data Previous Rx's ?Medication ?Instructions ?Recorded amoxicillin 875 mg-potassium 1 tab PO Q12H #10 tabs 01/27/24 clavulanate 125 mg tablet nadolol 20 mg tablet 10 mg PO DAILY #10 tabs 01/27/24 omeprazole 40 mg capsule,delayed 40 mg PO DAILY@0630 #30 caps 01/27/24 release sucralfate 1 gram tablet 1 g PO BIDAC #180 tabs 01/27/24 acetaminophen 325 mg capsule 325 mg PO Q4H PRN pain #30 caps 03/13/24 (Tylenol) Allergies Allergy/AdvReac Type Severity Reaction Status Date / Time No Known Allergies Allergy Verified 03/16/24 22:27 [No Known Allergies*] Review of Systems Review of Systems: Yes all other systems are reviewed and are negative [facility] Past Medical History Medical History Thrombocytopenia Alcohol withdrawal syndrome Cirrhosis Malnutrition CHF (congestive heart failure) Anemia Aspiration pneumonia Pneumonia Hypomagnesemia Thrombocytopenia Alcoholic liver disease Acute on chronic anemia CHF (congestive heart failure) Anemia Alcohol abuse Surgical History No history of previous surgery Social History Social History Household Members: None Household Members Other:: pt homeless Housing: Homeless Housing Other:: homeless Do you presently have visiting nurse or other home services: No Alcohol intake: current Alcohol intake frequency: 3 or more drinks per day Alcohol type: beer and hard liquor Comment: 1 assist to bathroom Patient Tobacco Use Status: Former Tobacco user Quit Date: 12 years ago Tobacco use type: Cigarette Smoked in Last 30 Days: Yes Second Hand Smoke Exposure: No Use of substances other than those prescribed or required for medical reasons: No Advance Directives: Yes Advance Directives on File: Yes Advance Directives Date on File: 07/13/23 service: No Physical Exam ED Vital Signs: Vital Signs - 24 hr 03/16/24 22:26 03/17/24 06:34 Temperature 97.6 F 98.0 F Pulse Rate 80 72 Respiratory Rate 18 18 Blood Pressure 125/69 138/72 Pulse Oximetry 96 96 Oxygen Delivery Method Room Air Room Air BMI result Body Mass Index 20.3 Appearance: Alert. Oriented X3. No acute distress. ETOH Eyes: PERRLA, No Nystagmus ENT: Pharynx normal. Oral Mucosa moist Neck: Normal inspection. Neck supple. CVS: Normal heart rate and rhythm. Pulses normal. Respiratory: No respiratory distress. Equal air entry bilateral, no wheezing/rales/rhonchi Abdomen: Soft and nontender. Bowel sounds are present, no mass palpable, no CVA tenderness Skin: Skin warm and dry. Normal skin color. Normal skin turgor. Extremities:++lower extremity edema. No calf tenderness Neuro: Oriented X 3. No motor deficit. No sensory deficit.No cerebellar signs , cranial nerves II-XII intact Discharge Plan Discharge Clinical Impression: Alcohol intoxication Patient Disposition: Home, Self-Care Instructions: Abuse of Alcohol (ED) Additional Instructions: Follow detox Stop drinking alcohol Prescriptions: No Action acetaminophen [Tylenol] 325 mg capsule 325 mg PO Q4H PRN (Reason: pain) Qty: 30 0RF nadolol 20 mg Tablet 10 mg PO DAILY Qty: 10 0RF Protocol: Hold for SBP/HR < HOLD for SBP < : 90 HOLD for HR < : 60 amoxicillin-pot clavulanate 875-125 mg Tablet 1 tab PO Q12H Qty: 10 0RF sucralfate 1 gram Tablet 1 g PO BIDAC Qty: 180 0RF omeprazole 40 mg Capsule,Delayed Release(Dr/Ec) 40 mg PO DAILY@0630 Qty: 30 0RF Interventions: ED Discharge Assessment Last Done: 03/17/24 06:34 Discharge Date/Time: 03/17/24 06:35 Print Language: Azerbaijani
[2024-03-17 06:34] VITALS: BP 138/72; PULSE 72; RESP 18; TEMP 36.7; O2SAT 96
== END 2024-03-17 06:35 | disposition home or self-care (01) ==
PROVIDERS: Emergency Provider Internal Medicine
DX: F10.120 Alcohol abuse with intoxication, uncomplicated (principal); Y90.9 Presence of alcohol in blood, level not specified; R60.0 Localized edema
CPT/HCPCS: 99284

== ENCOUNTER 2024-03-17 15:08 | Emergency (ER) | payer MEDICAID, SELFPAY ==
--- NOTE | 2024-03-17 15:11 | ED.ALCOHOL ---
HPI - Alcohol General Chief Complaint: ETOH/Substance Use Stated Complaint: ETOH foot pain, shoulder pain Time Seen by Provider: 03/17/24 15:11 Source: patient and EMS Mode of arrival: EMS Limitations: no limitations History of Present Illness HPI narrative: 54 yo male with PMH of ETOH abuse, pancytopenia, chronic leg swelling here looking for a place to sleep and now yelling at staff including myself calling me a motherfucker in korean complaint: alcohol dependence Last drink: Hours (ago) Chronic alcohol use: Yes Previous visits for alcohol intoxication: Yes Recent trauma: No Associated symptoms: denies other symptoms Treatments prior to arrival: none Related Data Previous Rx's ?Medication ?Instructions ?Recorded amoxicillin 875 mg-potassium 1 tab PO Q12H #10 tabs 01/27/24 clavulanate 125 mg tablet nadolol 20 mg tablet 10 mg PO DAILY #10 tabs 01/27/24 omeprazole 40 mg capsule,delayed 40 mg PO DAILY@0630 #30 caps 01/27/24 release sucralfate 1 gram tablet 1 g PO BIDAC #180 tabs 01/27/24 acetaminophen 325 mg capsule 325 mg PO Q4H PRN pain #30 caps 03/13/24 (Tylenol) Allergies Allergy/AdvReac Type Severity Reaction Status Date / Time No Known Allergies Allergy Verified 03/17/24 15:27 [No Known Allergies*] Review of Systems Review of Systems: Constitutional : No Fever, No Chills, No Fatigue ENT/Mouth : No sore throat, No Rhinorrhea Eyes: No Eye Pain, No Swelling, No Redness Cardiovascular : No Chest Pain, No SOB, No Dyspnea on Exertion Respiratory : No Cough, No Sputum Gastrointestinal : No Nausea, No Vomiting, No Diarrhea, No abdominal Pain Genitourinary : No Dysuria, No Urinary Frequency, No Hematuria, Musculoskeletal : No joint pain, No Myalgias, No Joint Swelling Skin : No Skin Lesions, No rash Neuro : No Weakness, No Numbness, No Dizziness, no Headache Psych : No Anxiety/Panic, No Depression, no SI/HI All other systems reviewed and are negative [facility] Past Medical History Attestation statement: The following information was validated with the patient. Source: old records reviewed Medical History Thrombocytopenia Alcohol withdrawal syndrome Cirrhosis Malnutrition CHF (congestive heart failure) Anemia Aspiration pneumonia Pneumonia Hypomagnesemia Thrombocytopenia Alcoholic liver disease Acute on chronic anemia CHF (congestive heart failure) Anemia Alcohol abuse Surgical History No history of previous surgery Social History Social History Household Members: None Household Members Other:: pt homeless Housing: Homeless Housing Other:: homeless Do you presently have visiting nurse or other home services: No Alcohol intake: current Alcohol intake frequency: 3 or more drinks per day Alcohol type: beer and hard liquor Comment: 1 assist to bathroom Patient Tobacco Use Status: Former Tobacco user Quit Date: 12 years ago Tobacco use type: Cigarette Second Hand Smoke Exposure: No Advance Directives: Yes Advance Directives on File: Yes Advance Directives Date on File: 07/13/23 service: No Physical Exam ED Vital Signs: Vital Signs - 24 hr 03/17/24 15:26 Temperature 97.9 F Pulse Rate 80 Respiratory Rate 16 Blood Pressure 109/60 Pulse Oximetry 96 Oxygen Delivery Method Room Air BMI result Body Mass Index 19.4 Appearance: Alert. Oriented X3. No acute distress. calling us all motherfucker in korean on arrival that we don't need to worry about him staying here because we don't pay for it. he is loud and rude. Eyes: Pupils equal, round and reactive to light. ENT: Pharynx normal. atraumatic Neck: Normal inspection. Neck supple. CVS: Normal heart rate and rhythm. Pulses normal. Respiratory: No respiratory distress. Breath sounds normal. Abdomen: Soft and nontender. Skin: Skin warm and dry. Normal skin color. Normal skin turgor. Extremities: chronic 1-2+ bilateral leg edema Neuro: Oriented X 3. No motor deficit. No sensory deficit. Course Course Course Narrative: if the patient is more calm he will be allowed to rest but he was told any further innapropriate behaviors and he will be discharged physician observation started 357pm Medical Decision Making Medical Decision Making MDM Narrative: 54 yo male with PMH of ETOH abuse, pancytopenia, chronic leg swelling here with c/o needing senior living and his same complaint of his feet hurting while he his walking at this time we told him to please stop yelling at staff then he proceeded again to call a female sitter a bitch. He is alert and oriented he is at his chronic baseline. He is always like this he can be discharged this is senior living seeking behavior and has been coming to the ED daily sometimes more than once a day. Differential Diagnosis Differential Diagnoses: The differential diagnosis associated with the presentation includes senior living seeking, alcohol dependence Admission/Observation Consideration of admission/observation: Escalation of care including admission/observation considered jenifer is aggressive and rude to staff he can be discharged home at this time he comes in repeatedly for the same thing stating that his feet hurt from walking and now that it is raining he needs a place to stay External Record Review External record reviewed: Inpatient record Social Determinants Patient?s care significantly limited by Social Determinants of Health including: Inadequate housing and Problems related to primary support group Discharge Plan Discharge Clinical Impression: Alcohol use disorder Patient Disposition: Home, Self-Care Instructions: Abuse of Alcohol (ED) Additional Instructions: stop drinking follow up with your doctor Prescriptions: No Action acetaminophen [Tylenol] 325 mg capsule 325 mg PO Q4H PRN (Reason: pain) Qty: 30 0RF nadolol 20 mg Tablet 10 mg PO DAILY Qty: 10 0RF Protocol: Hold for SBP/HR < HOLD for SBP < : 90 HOLD for HR < : 60 amoxicillin-pot clavulanate 875-125 mg Tablet 1 tab PO Q12H Qty: 10 0RF sucralfate 1 gram Tablet 1 g PO BIDAC Qty: 180 0RF omeprazole 40 mg Capsule,Delayed Release(Dr/Ec) 40 mg PO DAILY@0630 Qty: 30 0RF Print Language: Bhutanese
[2024-03-17 15:26] VITALS: BP 109/60; BP 114/78; PULSE 80; PULSE 86; RESP 16; TEMP 36.6; O2SAT 95; O2SAT 96; BMI 19.4
--- NOTE | 2024-03-17 15:30 | PC.NURSE ---
Pt ALPHONSE, found at [facility], reporting left ankle,knee & shoulder stinging pain. EMS stated that he sleeps on the concrete. Pt sleeping khurram.
[2024-03-17 17:51] VITALS: BP 108/55; PULSE 82; RESP 16; TEMP 36.7; O2SAT 98
[2024-03-17 22:29] VITALS: BP 108/55; PULSE 82; RESP 16; TEMP 36.7; O2SAT 98
== END 2024-03-17 22:29 | disposition home or self-care (01) ==
PROVIDERS: Emergency Provider Emergency Medicine
DX: F10.10 Alcohol abuse, uncomplicated (principal); Y90.9 Presence of alcohol in blood, level not specified
CPT/HCPCS: 99282; 99284

== ENCOUNTER 2024-03-18 22:50 | Emergency (ER) | payer MEDICAID, SELFPAY ==
[2024-03-18 23:05] VITALS: BP 126/60; BP 138/78; PULSE 76; PULSE 85; RESP 14; TEMP 36.6; O2SAT 94; O2SAT 95; BMI 24.8
[2024-03-19 01:10] VITALS: BP 126/60; PULSE 76; RESP 14; TEMP 36.6
== END 2024-03-19 01:12 | disposition left against medical advice (07) ==
PROVIDERS: Emergency Provider Emergency Medicine
DX: M25.572 Pain in left ankle and joints of left foot (principal); Z53.21 Procedure and treatment not carried out due to patient leaving prior to being seen by health care provider
CPT/HCPCS: 99281; 99282

== ENCOUNTER 2024-03-19 01:10 | Emergency (ER) | payer MEDICAID, SELFPAY ==
[2024-03-19 01:18] VITALS: BP 118/73; BP 123/59; PULSE 83; RESP 14; TEMP 36.6; O2SAT 95; BMI 20.6
--- NOTE | 2024-03-19 01:36 | ED_ITS ---
HPI - General Adult General Chief complaint: ETOH/Substance Use Stated complaint: ETOH Time Seen by Provider: 03/19/24 03:44 Source: patient Mode of arrival: ambulatory Limitations: no limitations History of Present Illness HPI narrative: 54 yo male with PMH of ETOH abuse, pancytopenia, anemia here with c/o ETOH use and states they keep making me come here He states he isn't sure if he wants detox but then states Nah. He denies SI or trauma complaint: ETOH intoxication Onset (ago): month(s) Radiation: non-radiation Severity: mild Relieving factors: none Exacerbating factors: none Associated symptoms: denies other symptoms Treatments prior to arrival: none Related Data Previous Rx's ?Medication ?Instructions ?Recorded amoxicillin 875 mg-potassium 1 tab PO Q12H #10 tabs 01/27/24 clavulanate 125 mg tablet nadolol 20 mg tablet 10 mg PO DAILY #10 tabs 01/27/24 omeprazole 40 mg capsule,delayed 40 mg PO DAILY@0630 #30 caps 01/27/24 release sucralfate 1 gram tablet 1 g PO BIDAC #180 tabs 01/27/24 acetaminophen 325 mg capsule 325 mg PO Q4H PRN pain #30 caps 03/13/24 (Tylenol) Allergies Allergy/AdvReac Type Severity Reaction Status Date / Time No Known Allergies Allergy Verified 03/19/24 01:19 [No Known Allergies*] Review of Systems Review of Systems: Constitutional : No Fever, No Chills, No Fatigue ENT/Mouth : No sore throat, No Rhinorrhea Eyes: No Eye Pain, No Swelling, No Redness Cardiovascular : No Chest Pain, No SOB, No Dyspnea on Exertion Respiratory : No Cough, No Sputum Gastrointestinal : No Nausea, No Vomiting, No Diarrhea, No abdominal Pain Genitourinary : No Dysuria, No Urinary Frequency, No Hematuria, Musculoskeletal : No joint pain, No Myalgias, No Joint Swelling Skin : No Skin Lesions, No rash Neuro : No Weakness, No Numbness, No Dizziness, no Headache Psych : No Anxiety/Panic, No Depression All other systems reviewed and are negative [facility] Past Medical History Attestation statement: The following information was validated with the patient. Source: old records reviewed Medical History Thrombocytopenia Alcohol withdrawal syndrome Cirrhosis Malnutrition CHF (congestive heart failure) Anemia Aspiration pneumonia Pneumonia Hypomagnesemia Thrombocytopenia Alcoholic liver disease Acute on chronic anemia CHF (congestive heart failure) Anemia Alcohol abuse Surgical History No history of previous surgery Social History Social History Household Members: None Household Members Other:: pt homeless Housing: Homeless Housing Other:: homeless Do you presently have visiting nurse or other home services: No Alcohol intake: current Alcohol intake frequency: 3 or more drinks per day Alcohol type: beer and hard liquor Comment: 1 assist to bathroom Patient Tobacco Use Status: Former Tobacco user Quit Date: 12 years ago Tobacco use type: Cigarette Second Hand Smoke Exposure: No Advance Directives Date on File: 07/13/23 Do you have a plan to hurt others: No Plan service: No Physical Exam ED Vital Signs: Vital Signs - 24 hr 03/19/24 01:18 Temperature 97.9 F Pulse Rate 83 Respiratory Rate 14 Blood Pressure 123/59 L Pulse Oximetry 95 Oxygen Delivery Method Room Air BMI result Body Mass Index 20.6 Appearance: intoxicated ETOH odor Oriented X3. No acute distress. Eyes: Pupils equal, round and reactive to light. ENT: Pharynx normal. atraumatic Neck: Normal inspection. Neck supple. CVS: Normal heart rate and rhythm. Pulses normal. Respiratory: No respiratory distress. Breath sounds normal. Abdomen: Soft and nontender. Skin: Skin warm and dry. Normal skin color. Normal skin turgor. Extremities: 1+ ankle pitting symmetric lower extremity edema. No calf ttp Neuro: Oriented X 3. No motor deficit. No sensory deficit. Medical Decision Making Medical Decision Making [facility] Narrative: 54 yo male known to us for ETOH abuse, cirrhosis, pancytopenia here again for ETOH abuse and intermediate seeking at this time he will not seek out detox and his family will not seek out S35 I am going to start obtaining ETOH levels and consider section 35 with addiction medicine/CARE team Differential Diagnosis Differential Diagnoses: The differential diagnosis associated with the presentation includes alcohol abuse Admission/Observation Consideration of admission/observation: Escalation of care including admission/observation considered will monitor again until the AM Lab Data [facility] Lab Attestation statement: I reviewed the patient's lab results. Independent Historian Clinical information obtained from an independent historian. History obtained from or confirmed by: EMS External Record Review External record reviewed: Inpatient record Social Determinants Patient?s care significantly limited by Social Determinants of Health including: Inadequate housing, Problems related to primary support group and Unemployment Discharge Plan Discharge Clinical Impression: Alcohol use disorder Patient Disposition: Home, Self-Care Instructions: Abuse of Alcohol (ED) Additional Instructions: stop drinking ETOH you are putting yourself at serious risks Prescriptions: No Action acetaminophen [Tylenol] 325 mg capsule 325 mg PO Q4H PRN (Reason: pain) Qty: 30 0RF nadolol 20 mg Tablet 10 mg PO DAILY Qty: 10 0RF Protocol: Hold for SBP/HR < HOLD for SBP < : 90 HOLD for HR < : 60 amoxicillin-pot clavulanate 875-125 mg Tablet 1 tab PO Q12H Qty: 10 0RF sucralfate 1 gram Tablet 1 g PO BIDAC Qty: 180 0RF omeprazole 40 mg Capsule,Delayed Release(Dr/Ec) 40 mg PO DAILY@0630 Qty: 30 0RF Print Language: British
[2024-03-19 04:12] LABS: Ethanol 389 mg/dL
[2024-03-19 06:13] VITALS: RESP 19
--- NOTE | 2024-03-19 09:11 | PC.NURSE ---
appears to be sleeping with even and unlabored respirations. no obvious signs/symptoms of distress.
[2024-03-19 09:16] VITALS: BP 101/52; PULSE 87; RESP 16; O2SAT 92
--- NOTE | 2024-03-19 12:30 | PC.NURSE ---
PT WITH A STEADY GAIT TO THE BATHROOM, TOLERATING PO INTAKE, WAS GIVEN A CLEAN PAIR OF PANTS. HE IS AGREEABLE TO DISCHARGE
[2024-03-19 13:16] VITALS: BP 112/75; PULSE 79; RESP 14; TEMP 36.6; O2SAT 95
== END 2024-03-19 13:15 | disposition home or self-care (01) ==
PROVIDERS: Emergency Provider Emergency Medicine
DX: F10.10 Alcohol abuse, uncomplicated (principal); Y90.9 Presence of alcohol in blood, level not specified; Z59.02 Unsheltered homelessness
CPT/HCPCS: 36415; 80307; 99283; 99284

== ENCOUNTER 2024-03-20 00:47 | Emergency (ER) | payer MEDICAID, SELFPAY ==
--- NOTE | ~2024-03-20 | XR_ITS ---
EXAMINATION: XR SHOULDER, LEFT CLINICAL INFORMATION: Left shoulder pain. COMPARISON: 02/01/2024 TECHNIQUE: AP external rotation, Grashey, scapular Y, and axillary views of the left shoulder. FINDINGS: Decreased bone mineralization. Downsloping acromion. Acromioclavicular joint is intact. Mild glenohumeral joint space narrowing. No displaced fracture or dislocation. No abnormal soft tissue calcifications. XR/XR shoulder LT min 2V IMPRESSION: Mild osteoarthritis of the left shoulder.
[2024-03-20 00:51] VITALS: BP 114/58; PULSE 87; RESP 18; TEMP 36.8; O2SAT 93
[2024-03-20 02:40] LABS: Ethanol 464 mg/dL
[2024-03-20 02:55] VITALS: BP 107/57; PULSE 85; RESP 16; TEMP 36.4; O2SAT 91
--- NOTE | 2024-03-20 06:46 | ED.ALCOHOL ---
HPI - Alcohol General Chief Complaint: ETOH/Substance Use Stated Complaint: etoh Time Seen by Provider: 03/20/24 06:45 Source: patient and EMS Mode of arrival: EMS Limitations: other (Intoxication) History of Present Illness HPI narrative: 54 yo male with PMH significant but not limited to alcohol use disorder, esophageal varices, acute blood loss anemia, and hepatic encephalopathy, who presents to ED via EMS with alcohol intoxication. Patient was reportedly found in front of fire dept. with c/o left leg pain, painful liver, and painful and swollen left ankle. Patient has known stress fracture of left ankle. Ethyl alcohol level 464 upon arrival. Patient has 30+ ED visits since January 2024. Patient seen at bedside this morning, lying in the ED stretcher. Patient states his left ankle and left shoulder are painful and stinging. Describes the ankle pain as pins and needles. Limited ROM of left shoulder and ankle. Able to move toes. Sensation intact. Recalls falling in winter, but denies any recent trauma that he can remember. States he needs shoulder and ankle fixed due to needing to be able to open his beers and walk around [place]. Denies headache, chest pain, SOB, abdominal pain, or N/V/D. MD complaint: alcohol intoxication Last drink: Hours (ago) Amount of alcohol consumed: Unspecified Chronic alcohol use: Yes Previous visits for alcohol intoxication: Yes Recent trauma: No Associated symptoms: other Treatments prior to arrival: none Related Data Previous Rx's ?Medication ?Instructions ?Recorded amoxicillin 875 mg-potassium 1 tab PO Q12H #10 tabs 01/27/24 clavulanate 125 mg tablet nadolol 20 mg tablet 10 mg PO DAILY #10 tabs 01/27/24 omeprazole 40 mg capsule,delayed 40 mg PO DAILY@0630 #30 caps 01/27/24 release sucralfate 1 gram tablet 1 g PO BIDAC #180 tabs 01/27/24 acetaminophen 325 mg capsule 325 mg PO Q4H PRN pain #30 caps 03/13/24 (Tylenol) Allergies Allergy/AdvReac Type Severity Reaction Status Date / Time No Known Allergies Allergy Verified 03/20/24 00:53 [No Known Allergies*] Review of Systems Review of Systems: Yes all other systems are reviewed and are negative PMFSH Past Medical History Medical History Thrombocytopenia Alcohol withdrawal syndrome Cirrhosis Malnutrition CHF (congestive heart failure) Anemia Aspiration pneumonia Pneumonia Hypomagnesemia Thrombocytopenia Alcoholic liver disease Acute on chronic anemia CHF (congestive heart failure) Anemia Alcohol abuse Surgical History No history of previous surgery Social History Social History Household Members: None Household Members Other:: pt homeless Housing: Homeless Housing Other:: homeless Do you presently have visiting nurse or other home services: No Alcohol intake: current Alcohol intake frequency: 3 or more drinks per day Alcohol type: beer and hard liquor Comment: 1 assist to bathroom Patient Tobacco Use Status: Former Tobacco user Quit Date: 12 years ago Tobacco use type: Cigarette Smoked in Last 30 Days: Yes Second Hand Smoke Exposure: No Use of substances other than those prescribed or required for medical reasons: No Advance Directives: Yes Advance Directives on File: Yes Advance Directives Date on File: 07/13/23 Do you have a plan to hurt others: No Plan service: No Physical Exam ED Vital Signs: Vital Signs - 24 hr 03/20/24 00:51 03/20/24 02:55 03/20/24 08:44 Temperature 98.3 F 97.5 F 98.4 F Pulse Rate 87 85 84 Respiratory Rate 18 16 14 Blood Pressure 114/58 L 107/57 L 95/42 L Pulse Oximetry 93 91 L 92 Oxygen Delivery Method Room Air Room Air Room Air BMI result Body Mass Index 20.0 Appearance: Oriented X3. No acute distress. Lying in ED stretcher. Blood under left fingernails noted, no lacerations visible. Head: normocephalic, atraumatic. Eyes: Pupils equal, round and reactive to light. ENT: Pharynx normal. Neck: Normal inspection. Neck supple. CVS: Normal heart rate and rhythm. Pulses normal. Respiratory: No respiratory distress. Abdomen: Soft and nontender. Skin: Skin warm and dry. Normal skin color. Normal skin turgor. No rashes. Extremities: Left ankle edema. Warmth to touch. No erythema. Neuro/psych: Speech and cognition affected due to intoxication. Agitated. Medical Decision Making Medical Decision Making MDM Narrative: 54 yo male with PMH significant but not limited to alcohol use disorder, esophageal varices, acute blood loss anemia, and hepatic encephalopathy, who presented to ED via EMS due to alcohol intoxication. Ethyl alcohol was 464 upon arrival. The patient c/o left ankle and left shoulder pain and stinging. Edema and limited ROM of left ankle, but patient able to move toes. No evidence of acute infection. Ankle CT from 03/13/24 showed curvilinear sclerosis in the distal tibial metaphysis suspicious for sequelae of stress fracture and diffuse subcutaneous edema/reticulation and skin thickening. Patient refuses to wear walking boot. Shoulder x-ray ordered today, which revealed mild osteoarthritis of the left shoulder. Patient encouraged to attend detox program for alcohol abuse disorder. Patient provided transportation from hospital to [facility]. Differential Diagnosis Differential Diagnoses: The differential diagnosis associated with the presentation includes 1. Alcohol intoxication 2. Alcohol abuse 3. Alcohol withdrawal Lab Data MDM Lab Attestation statement: I reviewed the patient's lab results. Labs: Lab Results 03/20/24 Range/Units 02:25 Ethyl Alcohol 464 H* mg/dL Independent Interpretation I performed an independent interpretation of an: Plain X-Ray Interpretation: No acute fracture appreciated, agree with radiology read Radiology Impression Discussion of test interpretation with radiology: I have reviewed the radiologist's reading. Radiologist Impression: EXAMINATION: XR SHOULDER, LEFT CLINICAL INFORMATION: Left shoulder pain. COMPARISON: 02/01/2024 TECHNIQUE: AP external rotation, Grashey, scapular Y, and axillary views of the left shoulder. FINDINGS: Decreased bone mineralization. Downsloping acromion. Acromioclavicular joint is intact. Mild glenohumeral joint space narrowing. No displaced fracture or dislocation. No abnormal soft tissue calcifications. XR/XR shoulder LT min 2V IMPRESSION: Mild osteoarthritis of the left shoulder. Independent Historian Clinical information obtained from an independent historian. History obtained from or confirmed by: EMS External Record Review External record reviewed: Outpatient record, Prior outpatient labs and Prior outpatient radiology Prescription Management I considered prescription management with: Pain Medication Chronic Conditions Patient?s care impacted by: Other (Alcohol use disorder) Social Determinants Patient?s care significantly limited by Social Determinants of Health including: Inadequate housing, Problems related to primary support group and Other Social Determinant of Health Critical Care Time Critical Care Time Critical Care Time: No Discharge Plan Discharge Clinical Impression: Alcohol intoxication Patient Disposition: Home, Self-Care Instructions: Alcohol Intoxication (ED) Additional Instructions: [facility] are [facility] [place] Recommend alcohol detox Go to a homeless senior living to sleep not the emergency department Prescriptions: No Action acetaminophen [Tylenol] 325 mg capsule 325 mg PO Q4H PRN (Reason: pain) Qty: 30 0RF nadolol 20 mg Tablet 10 mg PO DAILY Qty: 10 0RF Protocol: Hold for SBP/HR < HOLD for SBP < : 90 HOLD for HR < : 60 amoxicillin-pot clavulanate 875-125 mg Tablet 1 tab PO Q12H Qty: 10 0RF sucralfate 1 gram Tablet 1 g PO BIDAC Qty: 180 0RF omeprazole 40 mg Capsule,Delayed Release(Dr/Ec) 40 mg PO DAILY@0630 Qty: 30 0RF Print Language: Malawian
[2024-03-20 08:44] VITALS: BP 95/42; PULSE 84; RESP 14; TEMP 36.9; O2SAT 92
--- NOTE | 2024-03-20 09:07 | PC.NURSE ---
patient provided with [place] to [facility]
== END 2024-03-20 09:08 | disposition home or self-care (01) ==
PROVIDERS: Emergency Provider Emergency Medicine
DX: F10.129 Alcohol abuse with intoxication, unspecified (principal); Y90.8 Blood alcohol level of 240 mg/100 ml or more; M25.572 Pain in left ankle and joints of left foot; M25.512 Pain in left shoulder; Z79.899 Other long term (current) drug therapy
CPT/HCPCS: 36415; 73030; 80307; 99283; 99284

== ENCOUNTER 2024-03-28 09:51 | Emergency (ER) | payer MEDICAID, SELFPAY ==
[2024-03-28 09:59] VITALS: BP 120/80; PULSE 84; O2SAT 94
[2024-03-28 10:05] VITALS: BP 127/65; PULSE 80; RESP 16; TEMP 36.8; O2SAT 94; BMI 23.2
--- NOTE | 2024-03-28 10:59 | ED_ITS ---
HPI - Alcohol General Chief Complaint: ETOH/Substance Use Stated Complaint: WEAKNESS,SEEN EARLIER PER EMS Time Seen by Provider: 03/28/24 10:03 Source: patient Mode of arrival: EMS History of Present Illness HPI narrative: 54-year-old male well known to this emergency room arrives via EMS after he requested that someone call an ambulance for transportation back to [place]. Patient states he has had a couple of drinks and reports chronic pain. Related Data Previous Rx's ?Medication ?Instructions ?Recorded amoxicillin 875 mg-potassium 1 tab PO Q12H #10 tabs 01/27/24 clavulanate 125 mg tablet nadolol 20 mg tablet 10 mg PO DAILY #10 tabs 01/27/24 omeprazole 40 mg capsule,delayed 40 mg PO DAILY@0630 #30 caps 01/27/24 release sucralfate 1 gram tablet 1 g PO BIDAC #180 tabs 01/27/24 acetaminophen 325 mg capsule 325 mg PO Q4H PRN pain #30 caps 03/13/24 (Tylenol) Allergies Allergy/AdvReac Type Severity Reaction Status Date / Time No Known Allergies Allergy Verified 03/28/24 10:06 [No Known Allergies*] Review of Systems Review of Systems: Pertinent positives and negatives as stated in HPI PMFSH Past Medical History Source: nursing notes reviewed Medical History Thrombocytopenia Alcohol withdrawal syndrome Cirrhosis Malnutrition CHF (congestive heart failure) Anemia Aspiration pneumonia Pneumonia Hypomagnesemia Thrombocytopenia Alcoholic liver disease Acute on chronic anemia CHF (congestive heart failure) Anemia Alcohol abuse Surgical History No history of previous surgery Social History Social History Household Members: None Household Members Other:: pt homeless Housing: Homeless Housing Other:: homeless Do you presently have visiting nurse or other home services: No Alcohol intake: current Alcohol intake frequency: 3 or more drinks per day Alcohol type: beer and hard liquor Comment: 1 assist to bathroom Patient Tobacco Use Status: Former Tobacco user Quit Date: 12 years ago Tobacco use type: Cigarette Second Hand Smoke Exposure: No Advance Directives: Yes Advance Directives on File: Yes Advance Directives Date on File: 07/13/23 service: No Physical Exam ED Vital Signs: Vital Signs - 24 hr 03/28/24 10:05 03/28/24 12:57 Temperature 98.2 F 99.4 F Pulse Rate 80 81 Respiratory Rate 16 14 Blood Pressure 127/65 109/55 L Pulse Oximetry 94 95 Oxygen Delivery Method Room Air Room Air BMI result Body Mass Index 23.2 VITAL SIGNS: Reviewed. GENERAL: Well developed, well nourished, in no acute distress. HEAD: Normocephalic/atraumatic EYES: PERRLA, EOMI LUNGS: Normal breath sounds. No adventitious sounds or accessory muscle use. SpO2<95> CARDIOVASCULAR: Regular rate and rhythm without noted murmurs ABDOMEN: Soft, non-tender, non-distended with bowel sounds. MUSCULOSKELETAL: No tenderness, deformities, or effusions noted on gross inspection. EXTREMITIES: No cyanosis, clubbing or edema. SKIN: Inspection of the skin reveals no rashes NEUROLOGIC: Alert and oriented x 4. Strength and sensation to light touch were grossly intact x 4. Medical Decision Making Medical Decision Making MDM Narrative: 54-year-old male who is noted to ambulate with a steady gait, ETOH-153, patient provided with a pamphlet the demonstrates local retirement possibility. Differential Diagnosis Differential Diagnoses: The differential diagnosis associated with the presentation includes Please see the discussion above Admission/Observation Consideration of admission/observation: Escalation of care including admission/observation considered Please see the discussion above Lab Data Labs: Lab Results 03/28/24 Range/Units 12:32 Ethyl Alcohol 153 mg/dL External Record Review External record reviewed: Outpatient record and Prior outpatient labs Social Determinants Patient?s care significantly limited by Social Determinants of Health including: Alcoholism and drug addiction in family Critical Care Time Critical Care Time Critical Care Time: Yes Total Critical Care Time: 30 Attestation: I personally attest to this time spent taking care of the patient. Discharge Plan Discharge Clinical Impression: Alcohol use disorder Patient Disposition: Home, Self-Care Instructions: Alcohol Use Disorder (ED) Additional Instructions: Please follow-up with your primary care doctor. Return to the ER for any worsening symptoms. Prescriptions: No Action acetaminophen [Tylenol] 325 mg capsule 325 mg PO Q4H PRN (Reason: pain) Qty: 30 0RF nadolol 20 mg Tablet 10 mg PO DAILY Qty: 10 0RF Protocol: Hold for SBP/HR < HOLD for SBP < : 90 HOLD for HR < : 60 amoxicillin-pot clavulanate 875-125 mg Tablet 1 tab PO Q12H Qty: 10 0RF sucralfate 1 gram Tablet 1 g PO BIDAC Qty: 180 0RF omeprazole 40 mg Capsule,Delayed Release(Dr/Ec) 40 mg PO DAILY@0630 Qty: 30 0RF Print Language: Indonesian
[2024-03-28 12:50] LABS: Ethanol 153 mg/dL
[2024-03-28 12:57] VITALS: BP 109/55; PULSE 81; RESP 14; TEMP 37.4; O2SAT 95
--- NOTE | 2024-03-28 13:12 | PC.NURSE ---
Addendum entered by Maddy Murray RN 03/28/24 13:12: patient ambulates to bathroom with steady gait Original Note: patient ambulatest o b
--- NOTE | 2024-03-28 13:46 | PC.NURSE ---
patient ambulated off of unit with steady gait with d/c papers
== END 2024-03-28 13:46 | disposition home or self-care (01) ==
PROVIDERS: Emergency Provider Student in an Organized Health Care Education/Training Program
DX: F10.90 Alcohol use, unspecified, uncomplicated (principal); Y90.6 Blood alcohol level of 120-199 mg/100 ml; Z59.02 Unsheltered homelessness
CPT/HCPCS: 36415; 80307; 99283

== ENCOUNTER 2024-03-30 22:22 | Emergency (ER) | payer MEDICAID, SELFPAY ==
[2024-03-30 22:30] VITALS: BP 101/52; PULSE 85; RESP 18; TEMP 36.7; O2SAT 96; BMI 23.9
--- NOTE | 2024-03-30 22:56 | ED.ALCOHOL ---
HPI - Alcohol General Chief Complaint: Epistaxis Stated Complaint: Epistaxis, ETOH Time Seen by Provider: 03/30/24 22:34 History of Present Illness HPI narrative: Patient is a 54-year-old male with a history of alcohol abuse. Patient walked out of the liquor store and noticed that he was having nosebleed. Elected to come to the hospital. On arrival the bleeding has stopped. No history of similar symptoms in the past. Patient from home. Related Data Previous Rx's ?Medication ?Instructions ?Recorded amoxicillin 875 mg-potassium 1 tab PO Q12H #10 tabs 01/27/24 clavulanate 125 mg tablet nadolol 20 mg tablet 10 mg PO DAILY #10 tabs 01/27/24 omeprazole 40 mg capsule,delayed 40 mg PO DAILY@0630 #30 caps 01/27/24 release sucralfate 1 gram tablet 1 g PO BIDAC #180 tabs 01/27/24 acetaminophen 325 mg capsule 325 mg PO Q4H PRN pain #30 caps 03/13/24 (Tylenol) Allergies Allergy/AdvReac Type Severity Reaction Status Date / Time No Known Allergies Allergy Verified 03/31/24 01:41 [No Known Allergies*] Review of Systems Review of Systems: No fever no chills no chest pain PMFSH Past Medical History Attestation statement: The following information was validated with the patient. Medical History Thrombocytopenia Alcohol withdrawal syndrome Cirrhosis Malnutrition CHF (congestive heart failure) Anemia Aspiration pneumonia Pneumonia Hypomagnesemia Thrombocytopenia Alcoholic liver disease Acute on chronic anemia CHF (congestive heart failure) Anemia Alcohol abuse Surgical History No history of previous surgery Social History Social History Household Members: None Household Members Other:: pt homeless Housing: Homeless Housing Other:: homeless Do you presently have visiting nurse or other home services: No Alcohol intake: current Alcohol intake frequency: 3 or more drinks per day Alcohol type: beer and hard liquor Comment: 1 assist to bathroom Patient Tobacco Use Status: Former Tobacco user Quit Date: 12 years ago Tobacco use type: Cigarette Second Hand Smoke Exposure: No Advance Directives: Yes Advance Directives on File: Yes Advance Directives Date on File: 07/13/23 Do you have a plan to hurt others: No Plan service: No Physical Exam ED Vital Signs: Vital Signs - 24 hr 03/30/24 22:30 03/31/24 01:53 Temperature 98.1 F 98.7 F Pulse Rate 85 84 Respiratory Rate 18 16 Blood Pressure 101/52 L 109/54 L Pulse Oximetry 96 94 Oxygen Delivery Method Room Air Room Air BMI result Body Mass Index 23.9 Appearance: Alert. Oriented X3. No acute distress. Eyes: Pupils equal, round and reactive to light. ENT: Pharynx normal. Positive dry blood in bilateral nostrils. Neck: Normal inspection. Neck supple. No lymph nodes noted. No crepitus CVS: Normal heart rate and rhythm. Pulses normal. Normal S1 and S2 Respiratory: No respiratory distress. Breath sounds normal. No Wheezing. No rales Abdomen: Soft and nontender. No rigidity. No distention. good BS x4 Skin: Skin warm and dry. Normal skin color. Normal skin turgor. Extremities: No lower extremity edema. Neurovascular intact to all extremities. No Lacerations. No Rash Neuro: Oriented X 3. No motor deficit. No sensory deficit. Moving all extermities. No slurred speech Medical Decision Making Medical Decision Making MDM Narrative: Patient is 54 years old presents today with having nosebleed. On arrival in the emergency department the bleeding has stopped. Patient's hemoglobin is proximally baseline. Platelet is actually higher than baseline in the 90s. No acute distress. Low platelets likely related to alcohol use. Patient was just coming out a liquor store. The alcohol levels in the 200 range. Will monitor overnight discharge in a.m.. Differential Diagnosis Differential Diagnoses: The differential diagnosis associated with the presentation includes Anterior nosebleed, posterior nosebleed, low platelets Admission/Observation Consideration of admission/observation: Escalation of care including admission/observation considered Lab Data [facility] Lab Attestation statement: I reviewed the patient's lab results. 03/30/24 23:29 03/30/24 23:29 Labs: Lab Results 03/30/24 Range/Units 23:29 WBC 3.9 L (4.8-10.8) X10*3/uL RBC 3.00 L (4.60-5.80) X10*6/uL Hgb 9.4 L (14.0-18.0) g/dl Hct 28.8 L (42.0-52.0) % MCV 96.0 (80.0-98.0) fL MCH 31.3 (27.0-33.0) pg MCHC 32.6 (31.0-36.0) g/dl RDW 16.1 H (11.0-16.0) % Plt Count 93 L D (160-400) X10*3/uL MPV 11.5 (9.4-12.4) fL Immature Gran % (Auto) 0.5 H (0.0-0.4) % Neut % (Auto) 33.9 L (45-73) % Lymph % (Auto) 43.8 H (20-40) % Stevens % (Auto) 17.9 H (2-11) % Eos % (Auto) 2.3 (0-4) % Baso % (Auto) 1.6 (0-2) % Lymph # (Auto) 1.7 (1.2-4.9) X10*3/uL Stevens # (Auto) 0.7 (0.1-1.2) X10*3/uL Eos # (Auto) 0.1 (0.0-0.4) X10*3/uL Baso # (Auto) 0.1 (0.0-0.2) X10*3/uL Abs Immat Gran (auto) 0.02 (0.00-0.03) X10*3/uL Absolute Neuts (auto) 1.3 L (2.0-8.3) x10*3/uL Absolute Nucleated RBC 0.000 (0.0-0.012) X10*3/uL Nucleated RBC % (auto) 0.0 (0.0-0.2) /100WBC Smear Tech's Comments VERIFIED Sodium 141 (135-145) mmol/L Potassium 4.1 (3.3-5.1) mmol/L Chloride 112 H (96-108) mmol/L Carbon Dioxide 19 L (22-29) mmol/L Anion Gap 14 (12-20) BUN 11 (9-16) mg/dL Creatinine 0.72 (0.5-1.4) mg/dL Estim Creat Clear Calc TNP Estimated GFR > 60 Random Glucose 104 (60-115) mg/dL Calcium 8.5 (8.4-10.2) mg/dL Ethyl Alcohol 226 mg/dL External Record Review External record reviewed: Inpatient record Chronic Conditions History of alcohol abuse Social Determinants Patient?s care significantly limited by Social Determinants of Health including: Inadequate housing and Alcoholism and drug addiction in family Discharge Plan Discharge Clinical Impression: Alcohol intoxication, Acute anterior epistaxis Patient Disposition: Home, Self-Care Instructions: Nosebleed (ED), Alcohol Intoxication (ED) Additional Instructions: Do not pick, blow, touch your nose Prescriptions: No Action acetaminophen [Tylenol] 325 mg capsule 325 mg PO Q4H PRN (Reason: pain) Qty: 30 0RF nadolol 20 mg Tablet 10 mg PO DAILY Qty: 10 0RF Protocol: Hold for SBP/HR < HOLD for SBP < : 90 HOLD for HR < : 60 amoxicillin-pot clavulanate 875-125 mg Tablet 1 tab PO Q12H Qty: 10 0RF sucralfate 1 gram Tablet 1 g PO BIDAC Qty: 180 0RF omeprazole 40 mg Capsule,Delayed Release(Dr/Ec) 40 mg PO DAILY@0630 Qty: 30 0RF Referrals: [facility] [Primary Care Provider] - 04/02/24 Print Language: Occitan
--- NOTE | 2024-03-30 23:35 | MHC.EDTECH ---
This tech took over care of patient at 2300,Patient was changed into hospital attire,pants were left on patient security called to make sure patient had nothing on him.Labs were obtained and sent to lab.Patient urinated 300MLS in urinal
[2024-03-30 23:40] LABS: Basophils Absolute Auto 0.1 X10*3/uL (0.0-0.2); Basophils Percent Auto 1.6 % (0-2); Eosinophils Absolute Auto 0.1 X10*3/uL (0.0-0.4); Eosinophils Percent Auto 2.3 % (0-4); Hematocrit 28.8 % (42.0-52.0); Hemoglobin 9.4 g/dl (14.0-18.0); Imm Gran Abs Auto 0.02 X10*3/uL (0.00-0.03); Imm Gran Pct Auto 0.5 % (0.0-0.4); Lymphocytes Absolute Auto 1.7 X10*3/uL (1.2-4.9); Lymphocytes Percent Auto 43.8 % (20-40); MANUAL DIFF FLAG SCAN; Mean Corpuscular HGB Conc 32.6 g/dl (31.0-36.0); Mean Corpuscular Hemoglobin 31.3 pg (27.0-33.0); Mean Platelet Volume 11.5 fL (9.4-12.4); Monocytes Absolute Auto 0.7 X10*3/uL (0.1-1.2); Monocytes Percent Auto 17.9 % (2-11); Neutrophils Absolute Auto 1.3 x10*3/uL (2.0-8.3); Neutrophils Percent Auto 33.9 % (45-73); Red Cell Distribution Width 16.1 % (11.0-16.0); SCAN SMEAR FLAG 1; White Blood Count 3.9 X10*3/uL (4.8-10.8)
[2024-03-30 23:41] LABS: Platelet Count 93 X10*3/uL (160-400)
[2024-03-30 23:46] LABS: Anion Gap 14 (12-20); Blood Urea Nitrogen 11 mg/dL (9-16); Calcium 8.5 mg/dL (8.4-10.2); Carbon Dioxide 19 mmol/L (22-29); Chloride 112 mmol/L (96-108); Estimated Glomerular Filt Rate > 60; Ethanol 226 mg/dL; Glucose Random 104 mg/dL (60-115); Potassium 4.1 mmol/L (3.3-5.1); Sodium 141 mmol/L (135-145)
[2024-03-30 23:53] LABS: SLIDE REVIEW VERIFIED
[2024-03-31 01:53] VITALS: BP 109/54; PULSE 84; RESP 16; TEMP 37.1; O2SAT 94
--- NOTE | 2024-03-31 03:16 | PC.NURSE ---
Assumed care of pt.
[2024-03-31 03:39] VITALS: BP 111/53; PULSE 82; RESP 16; TEMP 36.9; O2SAT 94
[2024-03-31 06:19] VITALS: BP 106/51; PULSE 80; RESP 18; TEMP 38.1; O2SAT 93
[2024-03-31 06:27] VITALS: BP 115/65; PULSE 78; RESP 18; TEMP 36.8; O2SAT 94
== END 2024-03-31 06:28 | disposition home or self-care (01) ==
PROVIDERS: Emergency Provider Emergency Medicine Emergency Medical Services
DX: F10.120 Alcohol abuse with intoxication, uncomplicated (principal); Y90.7 Blood alcohol level of 200-239 mg/100 ml; R04.0 Epistaxis; Z87.891 Personal history of nicotine dependence
CPT/HCPCS: 36415; 80048; 80307; 85025; 99283; 99284

== ENCOUNTER 2024-04-01 21:09 | Emergency (ER) | payer MEDICAID, SELFPAY ==
[2024-04-01 21:11] VITALS: BP 120/56; PULSE 86; O2SAT 92
[2024-04-01 21:31] VITALS: BP 105/57; PULSE 81; RESP 18; TEMP 36.8; O2SAT 93; BMI 21.0
[2024-04-01 22:05] LABS: MANUAL DIFF FLAG NO
[2024-04-01 22:11] LABS: INTERNATIONAL NORM RATIO 1.2 (0.9-1.1); Prothrombin Time 14.9 SEC (11.1-13.3)
[2024-04-01 22:17] LABS: Basophils Absolute Auto 0.1 X10*3/uL (0.0-0.2); Basophils Percent Auto 2.1 % (0-2); Eosinophils Absolute Auto 0.1 X10*3/uL (0.0-0.4); Eosinophils Percent Auto 3.6 % (0-4); Hematocrit 27.8 % (42.0-52.0); Hemoglobin 9.1 g/dl (14.0-18.0); Imm Gran Abs Auto 0.01 X10*3/uL (0.00-0.03); Imm Gran Pct Auto 0.3 % (0.0-0.4); Lymphocytes Absolute Auto 1.2 X10*3/uL (1.2-4.9); Mean Corpuscular HGB Conc 32.7 g/dl (31.0-36.0); Mean Corpuscular Hemoglobin 31.3 pg (27.0-33.0); Mean Corpuscular Volume 95.5 fL (80.0-98.0); Mean Platelet Volume 11.7 fL (9.4-12.4); Monocytes Absolute Auto 0.5 X10*3/uL (0.1-1.2); Monocytes Percent Auto 14.3 % (2-11); Neutrophils Absolute Auto 1.5 x10*3/uL (2.0-8.3); Neutrophils Percent Auto 43.7 % (45-73); Red Blood Count 2.91 X10*6/uL (4.60-5.80); Red Cell Distribution Width 15.6 % (11.0-16.0); White Blood Count 3.4 X10*3/uL (4.8-10.8)
[2024-04-01 22:21] LABS: Alanine Aminotransferase 13 U/L (0-40); Albumin Level 3.3 g/dL (3.5-5.0); Alkaline Phosphatase 169 U/L (39-117); Anion Gap 13 (12-20); Aspartate Amino Transferase 39 U/L (5-37); Bilirubin Direct 0.2 mg/dL (0.0-0.5); Bilirubin Total 0.4 mg/dL (0.0-1.0); Blood Urea Nitrogen 11 mg/dL (9-16); Calcium 8.9 mg/dL (8.4-10.2); Carbon Dioxide 19 mmol/L (22-29); Chloride 113 mmol/L (96-108); Creatinine Clr Calc Pharmacy 91.5; Estimated Glomerular Filt Rate > 60; Glucose Random 96 mg/dL (60-115); Lipase 55 U/L (8-78); Platelet Count 93 X10*3/uL (160-400); Sodium 141 mmol/L (135-145); Total Protein 7.8 g/dL (6.5-8.0)
[2024-04-02 00:59] VITALS: BP 119/56; PULSE 82; RESP 16; TEMP 37.2; O2SAT 94
== END 2024-04-02 03:00 | disposition left against medical advice (07) ==
PROVIDERS: Emergency Provider Emergency Medicine
DX: R04.0 Epistaxis (principal); Z91.81 History of falling
CPT/HCPCS: 36415; 80053; 82248; 83690; 85025; 85610; 99281; 99283

== ENCOUNTER 2024-04-18 17:05 | Emergency (ER) | payer MEDICAID, SELFPAY ==
--- NOTE | ~2024-04-18 | XR_ITS ---
EXAMINATION: XR CHEST CLINICAL INFORMATION: Hypoxia. COMPARISON: Chest radiograph 01/25/2024. TECHNIQUE: Frontal view of the chest was obtained. FINDINGS: Stable prominence of the cardiomediastinal silhouette. Chronic peribronchial thickening and interstitial thickening. No new focal consolidation. No pleural effusions or pneumothorax. No acute osseous findings. Visualized upper abdomen is within normal limits. XR/XR chest 1V IMPRESSION: 1. Chronic interstitial thickening. 2. No focal consolidation, pleural effusion or pneumothorax.
[2024-04-18 17:10] VITALS: BP 100/63; BP 112/58; PULSE 84; PULSE 90; RESP 16; TEMP 36.7; O2SAT 88; O2SAT 91; BMI 21.0
--- NOTE | 2024-04-18 17:24 | PC.NURSE ---
security called to do a changeover
--- NOTE | 2024-04-18 17:31 | ED.ALCOHOL ---
HPI - Alcohol General Chief Complaint: ETOH/Substance Use Stated Complaint: etoh Time Seen by Provider: 04/18/24 17:11 Source: patient, EMS, RN notes reviewed and old records reviewed Mode of arrival: EMS Limitations: other (Alcohol intoxication) History of Present Illness ED Provider: Genny Whitney PA-C HPI narrative: 54-year-old male with severe alcohol use disorder, seen here very frequently for alcohol intoxication presents to the ER via EMS for evaluation of intoxication. He was next to the [place] fire department, they went to evaluate him and found him intoxicated so EMS was called to bring him to the ER for evaluation. Patient arrived intoxicated with slurred speech. He states he drank a lot of beer today. He would not quantify. He reports left foot pain which is chronic. He has not wearing his walking boot. Patient denies any falls. complaint: alcohol intoxication Last drink: Just prior to admission Chronic alcohol use: Yes Previous visits for alcohol intoxication: Yes Recent trauma: No Associated symptoms: denies other symptoms Treatments prior to arrival: none Related Data Previous Rx's ?Medication ?Instructions ?Recorded amoxicillin 875 mg-potassium 1 tab PO Q12H #10 tabs 01/27/24 clavulanate 125 mg tablet nadolol 20 mg tablet 10 mg PO DAILY #10 tabs 01/27/24 omeprazole 40 mg capsule,delayed 40 mg PO DAILY@0630 #30 caps 01/27/24 release sucralfate 1 gram tablet 1 g PO BIDAC #180 tabs 01/27/24 acetaminophen 325 mg capsule 325 mg PO Q4H PRN pain #30 caps 03/13/24 (Tylenol) Allergies Allergy/AdvReac Type Severity Reaction Status Date / Time No Known Allergies Allergy Verified 04/18/24 17:12 [No Known Allergies*] Review of Systems Review of Systems: Yes all other systems are reviewed and are negative PMFSH Past Medical History Medical History Thrombocytopenia Alcohol withdrawal syndrome Cirrhosis Malnutrition CHF (congestive heart failure) Anemia Aspiration pneumonia Pneumonia Hypomagnesemia Thrombocytopenia Alcoholic liver disease Acute on chronic anemia CHF (congestive heart failure) Anemia Alcohol abuse Surgical History No history of previous surgery Social History Social History Household Members: None Household Members Other:: pt homeless Housing: Homeless Housing Other:: homeless Do you presently have visiting nurse or other home services: No Alcohol intake: current Alcohol intake frequency: 3 or more drinks per day Alcohol type: beer and hard liquor Comment: 1 assist to bathroom Patient Tobacco Use Status: Former Tobacco user Tobacco use type: Cigarette Second Hand Smoke Exposure: No Advance Directives: Yes Advance Directives on File: Yes Advance Directives Date on File: 07/13/23 Do you have a plan to hurt others: No Plan service: No Physical Exam ED Vital Signs: Vital Signs - 24 hr 04/18/24 17:10 04/18/24 20:00 04/18/24 23:36 Temperature 98.0 F 98.3 F Pulse Rate 84 81 78 Respiratory Rate 16 16 Blood Pressure 100/63 94/55 L 101/54 L Pulse Oximetry 91 L 90 L 95 Oxygen Delivery Method Room Air Room Air Room Air BMI result Body Mass Index 21.0 Appearance: Lethargic, arouses to voice Oriented X3. Disheveled, smells of alcohol, slurred speech Head: normocephalic, atraumatic. Eyes: Pupils equal, round and reactive to light. ENT: Pharynx normal. No tonsillar swelling or exudate. Neck: Normal inspection. Neck supple. CVS: Normal heart rate and rhythm. Pulses normal. Respiratory: No respiratory distress. Breath sounds normal. Abdomen: Soft and nontender. +BS x4 Skin: Skin warm and dry. Normal skin color. Normal skin turgor. No rashes. Extremities: Left greater than right lower extremity swelling of the distal legs. Tenderness of the left foot. No overlying erythema or warmth. Neuro/psych: Curled up in a blanket on the stretcher, arouses to voice and answers simple questions and follows simple commands. Grossly normal and nonfocal, slurred speech is slight and patient smells of alcohol Course Reevaluation(s) Reevaluation #1: Chest x-ray reviewed, no acute abnormality. Patient vital signs are improved. He continues to sleep. Refusing care. He is stable for discharge once awake and clinically sober Time: 23:58 Medical Decision Making Medical Decision Making MDM Narrative: 54-year-old well known to the ER presenting again with alcohol intoxication. He has a slightly low O2 sat of 91-92%. His lungs are clear. He denies any shortness of breath. Vital signs reviewed from prior visits and this seems to be his baseline. Chest x-ray was ordered which did not show any acute abnormalities. Repeat vital signs are improved without intervention. Patient does not have any medical emergency today. He can be discharged once he is awake and sober. Differential Diagnosis Differential Diagnoses: The differential diagnosis associated with the presentation includes Alcohol intoxication, polysubstance abuse, low clinical suspicion for stroke or acute traumatic injury Independent Interpretation I performed an independent interpretation of an: Plain X-Ray Interpretation: No focal pneumonia, agree with radiology read Radiology Impression Discussion of test interpretation with radiology: I have reviewed the radiologist's reading. Radiologist Impression: EXAMINATION: XR CHEST CLINICAL INFORMATION: Hypoxia. COMPARISON: Chest radiograph 01/25/2024. TECHNIQUE: Frontal view of the chest was obtained. FINDINGS: Stable prominence of the cardiomediastinal silhouette. Chronic peribronchial thickening and interstitial thickening. No new focal consolidation. No pleural effusions or pneumothorax. No acute osseous findings. Visualized upper abdomen is within normal limits. XR/XR chest 1V IMPRESSION: 1. Chronic interstitial thickening. 2. No focal consolidation, pleural effusion or pneumothorax. Independent Historian Clinical information obtained from an independent historian. History obtained from or confirmed by: EMS External Record Review External record reviewed: Outpatient record, Prior outpatient labs and Prior outpatient radiology Chronic Conditions Patient?s care impacted by: Other (Alcoholism) Social Determinants Patient?s care significantly limited by Social Determinants of Health including: Inadequate housing and Other Social Determinant of Health Critical Care Time Critical Care Time Critical Care Time: No Discharge Plan Discharge Clinical Impression: Alcohol intoxication Patient Disposition: Still a Patient Instructions: Alcohol Intoxication (ED) Prescriptions: No Action acetaminophen [Tylenol] 325 mg capsule 325 mg PO Q4H PRN (Reason: pain) Qty: 30 0RF nadolol 20 mg Tablet 10 mg PO DAILY Qty: 10 0RF Protocol: Hold for SBP/HR < HOLD for SBP < : 90 HOLD for HR < : 60 amoxicillin-pot clavulanate 875-125 mg Tablet 1 tab PO Q12H Qty: 10 0RF sucralfate 1 gram Tablet 1 g PO BIDAC Qty: 180 0RF omeprazole 40 mg Capsule,Delayed Release(Dr/Ec) 40 mg PO DAILY@0630 Qty: 30 0RF Print Language: Mauritanian
--- NOTE | 2024-04-18 17:33 | MHC.EDTECH ---
PT BELONGINGS LOCATED IN [facility] #9
[2024-04-18 20:00] VITALS: BP 94/55; PULSE 81; O2SAT 90
[2024-04-18 23:36] VITALS: BP 101/54; PULSE 78; RESP 16; TEMP 36.8; O2SAT 95
--- NOTE | 2024-04-18 23:37 | MHC.EDTECH ---
This tech took over care of patient at 2300,hourly rounds and vitals completed
[2024-04-19 01:50] VITALS: BP 120/56; PULSE 81; RESP 16; TEMP 36.8; O2SAT 97
--- NOTE | 2024-04-19 01:51 | MHC.EDTECH ---
Hourly rounds and vitals completed,patient urinated 300MLS in urinal,
[2024-04-19 04:00] VITALS: PULSE 83; RESP 16; O2SAT 96
[2024-04-19 05:54] VITALS: BP 125/62; PULSE 88; RESP 18; TEMP 37.1; O2SAT 97
== END 2024-04-19 06:17 | disposition home or self-care (01) ==
PROVIDERS: Emergency Provider Internal Medicine
DX: F10.129 Alcohol abuse with intoxication, unspecified (principal); Y90.9 Presence of alcohol in blood, level not specified; R09.02 Hypoxemia; R47.81 Slurred speech; M79.672 Pain in left foot; Z79.899 Other long term (current) drug therapy
CPT/HCPCS: 71045; 99283; 99284

== ENCOUNTER 2024-04-20 14:17 | Emergency (ER) | payer MEDICAID, SELFPAY ==
[2024-04-20 14:30] VITALS: BP 107/52; PULSE 90; RESP 16; TEMP 36.6; O2SAT 94
[2024-04-20 14:31] VITALS: BMI 24.1
[2024-04-20 15:00] VITALS: BP 107/52; BP 118/68; PULSE 100; PULSE 94; RESP 16; TEMP 36.6; O2SAT 94; O2SAT 95; BMI 24.1
--- NOTE | 2024-04-20 16:32 | ED_ITS ---
HPI - Alcohol General Chief Complaint: Wound/Laceration Stated Complaint: ETOH R WRIST LAC Time Seen by Provider: 04/20/24 16:11 Source: patient and EMS Mode of arrival: EMS History of Present Illness ED Provider: Dr Olsen HPI narrative: 54-year-old male with known alcohol use disorder is brought in by EMS for complaints of alcohol consumption no small abrasion to the right dorsal wrist. Patient denies any other complaints. Related Data Previous Rx's ?Medication ?Instructions ?Recorded amoxicillin 875 mg-potassium 1 tab PO Q12H #10 tabs 01/27/24 clavulanate 125 mg tablet nadolol 20 mg tablet 10 mg PO DAILY #10 tabs 01/27/24 omeprazole 40 mg capsule,delayed 40 mg PO DAILY@0630 #30 caps 01/27/24 release sucralfate 1 gram tablet 1 g PO BIDAC #180 tabs 01/27/24 acetaminophen 325 mg capsule 325 mg PO Q4H PRN pain #30 caps 03/13/24 (Tylenol) Allergies Allergy/AdvReac Type Severity Reaction Status Date / Time No Known Allergies Allergy Verified 04/20/24 15:04 [No Known Allergies*] Review of Systems Review of Systems: Pertinent positives and negatives as stated in HPI PMF Past Medical History Source: nursing notes reviewed Medical History Thrombocytopenia Alcohol withdrawal syndrome Cirrhosis Malnutrition CHF (congestive heart failure) Anemia Aspiration pneumonia Pneumonia Hypomagnesemia Thrombocytopenia Alcoholic liver disease Acute on chronic anemia CHF (congestive heart failure) Anemia Alcohol abuse Surgical History No history of previous surgery Social History Social History Household Members: None Household Members Other:: pt homeless Housing: Homeless Housing Other:: homeless Do you presently have visiting nurse or other home services: No Alcohol intake: current Alcohol intake frequency: 3 or more drinks per day Alcohol type: beer and hard liquor Comment: 1 assist to bathroom Patient Tobacco Use Status: Former Tobacco user Tobacco use type: Cigarette Second Hand Smoke Exposure: No Advance Directives: Yes Advance Directives on File: Yes Advance Directives Date on File: 07/13/23 service: No Physical Exam ED Vital Signs: Vital Signs - 24 hr 04/20/24 14:30 04/20/24 15:00 Temperature 97.8 F 97.8 F Pulse Rate 90 94 Respiratory Rate 16 16 Blood Pressure 107/52 L 107/52 L Pulse Oximetry 94 94 Oxygen Delivery Method Room Air Room Air BMI result Body Mass Index 24.1 VITAL SIGNS: Reviewed. GENERAL: Well developed, well nourished, in no acute distress. HEAD: Normocephalic/atraumatic EYES: PERRLA, EOMI EARS: Ext canals without abnormality NOSE: Nares patent bilateral OROPHARYNX: no oral lesions noted, posterior pharynx clear NECK: Supple, no adenopathy LUNGS: Normal breath sounds. No adventitious sounds or accessory muscle use. SpO2<94> CARDIOVASCULAR: Regular rate and rhythm without noted murmurs ABDOMEN: Soft, non-tender, non-distended with bowel sounds. MUSCULOSKELETAL: No tenderness, deformities, or effusions noted on gross inspection. EXTREMITIES: No cyanosis, clubbing or edema. SKIN: Inspection of the skin reveals no rashes NEUROLOGIC: Drowsy but arousable and oriented x 3. Strength and sensation to light touch were grossly intact x 4. Medical Decision Making Medical Decision Making MDM Narrative: 54-year-old male with history and clinical presentation, DDX: Alcohol consumption, small abrasion that is hemostatic. Patient placed in physician observation because the patient needed more time for clinical sobriety. At the time observation was started the patient's vital signs were stable, patient is alert and oriented, neuro: Nonfocal, CV RRR, lungs clear Differential Diagnosis Differential Diagnoses: The differential diagnosis associated with the presentation includes Please see the discussion above Admission/Observation Consideration of admission/observation: Escalation of care including admission/observation considered Please see the discussion above External Record Review External record reviewed: Outpatient record, Prior outpatient labs and Prior outpatient radiology Social Determinants Patient?s care significantly limited by Social Determinants of Health including: Alcoholism and drug addiction in family Critical Care Time Critical Care Time Critical Care Time: Yes Total Critical Care Time: 30 Attestation: I personally attest to this time spent taking care of the patient. Discharge Plan Discharge Clinical Impression: Alcohol intoxication, Superficial abrasion Patient Disposition: Still a Patient Prescriptions: No Action acetaminophen [Tylenol] 325 mg capsule 325 mg PO Q4H PRN (Reason: pain) Qty: 30 0RF nadolol 20 mg Tablet 10 mg PO DAILY Qty: 10 0RF Protocol: Hold for SBP/HR < HOLD for SBP < : 90 HOLD for HR < : 60 amoxicillin-pot clavulanate 875-125 mg Tablet 1 tab PO Q12H Qty: 10 0RF sucralfate 1 gram Tablet 1 g PO BIDAC Qty: 180 0RF omeprazole 40 mg Capsule,Delayed Release(Dr/Ec) 40 mg PO DAILY@0630 Qty: 30 0RF Print Language: Nicaraguan
--- NOTE | 2024-04-20 20:22 | PC.NURSE ---
Pt resting in bed comfortably, no signs of distress. Plan of care ongoing.
[2024-04-20 23:20] VITALS: BP 120/59; PULSE 78; RESP 16; TEMP 36.9; O2SAT 91
[2024-04-21 06:16] VITALS: BP 129/57; PULSE 80; RESP 16; TEMP 37.1; O2SAT 94
[2024-04-21 08:03] VITALS: BP 132/67; PULSE 78; RESP 14; O2SAT 96
--- NOTE | 2024-04-21 11:48 | PC.NURSE ---
patient ambulated off unit with steady gait. alert and oriented x3.
== END 2024-04-21 12:09 | disposition home or self-care (01) ==
PROVIDERS: Emergency Provider Emergency Medicine
DX: F10.220 Alcohol dependence with intoxication, uncomplicated (principal); Y90.9 Presence of alcohol in blood, level not specified; S60.811A Abrasion of right wrist, initial encounter; W19.XXXA Unspecified fall, initial encounter; Z87.891 Personal history of nicotine dependence; Y93.9 Activity, unspecified; Y92.9 Unspecified place or not applicable; Y99.9 Unspecified external cause status
CPT/HCPCS: 99283; 99284

== ENCOUNTER 2024-04-22 20:35 | Emergency (ER) | payer MEDICAID, SELFPAY ==
[2024-04-22 20:43] VITALS: PULSE 82; O2SAT 95
[2024-04-22 20:45] VITALS: BMI 19.4
--- NOTE | 2024-04-22 21:18 | ED.GENADULT ---
HPI - General Adult General Chief complaint: ETOH/Substance Use Stated complaint: ETOH Time Seen by Provider: 04/22/24 20:44 Source: patient, RN notes reviewed and old records reviewed Mode of arrival: ambulatory Limitations: other (Acute alcohol intoxication) History of Present Illness ED Provider: Warner VIVAR narrative: 54-year-old male presents for evaluation of acute alcohol intoxication Patient was found asleep outside of a liquor store by bystander Patient admits to drinking alcohol today He reports that he drank ?two 12 oz beers today. This is the patient's 32nd ER visit for alcohol intoxication this calendar year He has no complaints Related Data Previous Rx's ?Medication ?Instructions ?Recorded amoxicillin 875 mg-potassium 1 tab PO Q12H #10 tabs 01/27/24 clavulanate 125 mg tablet nadolol 20 mg tablet 10 mg PO DAILY #10 tabs 01/27/24 omeprazole 40 mg capsule,delayed 40 mg PO DAILY@0630 #30 caps 01/27/24 release sucralfate 1 gram tablet 1 g PO BIDAC #180 tabs 01/27/24 acetaminophen 325 mg capsule 325 mg PO Q4H PRN pain #30 caps 03/13/24 (Tylenol) Allergies Allergy/AdvReac Type Severity Reaction Status Date / Time No Known Allergies Allergy Verified 04/22/24 20:48 [No Known Allergies*] Review of Systems Constitutional: Constitutional: Denies body ache(s), Denies chills and Denies fever(s) Eyes: Eyes: Denies blurry vision ENT: Denies sore throat Cardiovascular: Cardiovascular: Denies chest pain Respiratory: Respiratory: Denies cough Gastrointestinal: Gastrointestinal: Denies abdominal pain, Denies nausea and Denies vomiting Musculoskeletal: Musculoskeletal: Denies back pain [facility] Past Medical History Medical History Thrombocytopenia Alcohol withdrawal syndrome Cirrhosis Malnutrition CHF (congestive heart failure) Anemia Aspiration pneumonia Pneumonia Hypomagnesemia Thrombocytopenia Alcoholic liver disease Acute on chronic anemia CHF (congestive heart failure) Anemia Alcohol abuse Surgical History No history of previous surgery Social History Social History Household Members: None Household Members Other:: pt homeless Housing: Homeless Housing Other:: homeless Do you presently have visiting nurse or other home services: No Unable to assess alcohol history related to: Refusing to respond Alcohol intake: current Alcohol intake frequency: 3 or more drinks per day Alcohol type: beer and hard liquor Comment: 1 assist to bathroom Patient Tobacco Use Status: Former Tobacco user Tobacco use type: Cigarette Smoked in Last 30 Days: Yes Second Hand Smoke Exposure: No Use of substances other than those prescribed or required for medical reasons: Refusing to respond Advance Directives: Yes Advance Directives on File: Yes Advance Directives Date on File: 07/13/23 service: No Physical Exam ED Vital Signs: Vital Signs - 24 hr 04/22/24 23:42 04/23/24 01:28 Temperature 97.8 F 97.7 F Pulse Rate 83 81 Respiratory Rate 16 16 Blood Pressure 98/53 L 102/58 L Pulse Oximetry 95 94 Oxygen Delivery Method Room Air Room Air BMI result Body Mass Index 19.4 Const General: healthy appearing, comfortable, no acute distress, alert and awake Nutritional Appearance: well nourished HENVA Head: Yes normocephalic and Yes atraumatic Eyes Eyelids: Yes eyelids normal Conjunctivae: conjunctivae normal Sclerae: sclerae normal Corneas: corneas normal Pupils: Equal, round and reactive pupils present EOM: EOMs intact bilaterally Neck Neck: Yes full ROM Resp Effort & Inspection: normal respiratory effort, able to speak in complete sentences and not labored Skin General skin exam: elasticity normal Neuro Cranial nerves: Yes Equal, round and reactive pupils present and Yes Bilaterally intact EOM present Cognition (Neuro): normal cognition Extrem Other: Moving all extremities well without any obvious deformities Course Reevaluation(s) Reevaluation #1: Patient continuing to rest comfortably, plan for physician offs and likely discharge when clinically sober Time: 02:44 Medical Decision Making Medical Decision Making MDM Narrative: 54-year-old male presents for evaluation of acute alcohol intoxication. The patient denies any complaints. He has no obvious signs of trauma. Plan for observation to clinical sobriety Differential Diagnosis Differential Diagnoses: The differential diagnosis associated with the presentation includes Acute alcohol intoxication Substance abuse Depression Syncope less likely Discharge Plan Discharge Clinical Impression: Alcohol intoxication Patient Disposition: Home, Self-Care Instructions: Abuse of Alcohol (ED) Prescriptions: No Action acetaminophen [Tylenol] 325 mg capsule 325 mg PO Q4H PRN (Reason: pain) Qty: 30 0RF nadolol 20 mg Tablet 10 mg PO DAILY Qty: 10 0RF Protocol: Hold for SBP/HR < HOLD for SBP < : 90 HOLD for HR < : 60 amoxicillin-pot clavulanate 875-125 mg Tablet 1 tab PO Q12H Qty: 10 0RF sucralfate 1 gram Tablet 1 g PO BIDAC Qty: 180 0RF omeprazole 40 mg Capsule,Delayed Release(Dr/Ec) 40 mg PO DAILY@0630 Qty: 30 0RF Print Language: [place]araguan
[2024-04-22 23:42] VITALS: BP 98/53; PULSE 83; RESP 16; TEMP 36.6; O2SAT 95
[2024-04-23 01:28] VITALS: BP 102/58; PULSE 81; RESP 16; TEMP 36.5; O2SAT 94
[2024-04-23 04:00] VITALS: RESP 16
--- NOTE | 2024-04-23 07:03 | PC.NURSE ---
pt woke up - left w/o d/c paperwork/refused vitals. no IV in place.
== END 2024-04-23 07:03 | disposition home or self-care (01) ==
PROVIDERS: Emergency Provider Internal Medicine
DX: F10.129 Alcohol abuse with intoxication, unspecified (principal); Y90.9 Presence of alcohol in blood, level not specified
CPT/HCPCS: 99284

== ENCOUNTER 2024-04-26 17:05 | Emergency (ER) | payer MEDICAID, SELFPAY ==
--- NOTE | 2024-04-26 17:09 | ED.GENADULT ---
HPI - General Adult General Chief complaint: ETOH/Substance Use Stated complaint: etoh,leg pain Time Seen by Provider: 04/26/24 17:08 Source: patient and EMS Mode of arrival: EMS Limitations: no limitations History of Present Illness ED Provider: Abril Sam PA-C HPI narrative: Patient is a 54 year old assigned male at with a history of alcohol abuse presenting to the emergency department today with alcohol intoxication. Patient states that he has been drinking today and his foot hurt but now does not. EMS states that the patient was found by the fire station. Patient denies any dizziness, lightheadedness, abdominal pain, nausea, vomiting, fever, chills, blurry vision, double vision, loss of vision, chest pain, difficulty breathing, shortness of breath, back pain, night sweats, pain with urination, increased urinary frequency, increased urinary urgency, blood in his urine or stool, syncope or a near syncopal episode, recent trauma or falls, bowel incontinence, bladder incontinence, or any other complaints at this time. Relieving factors: none Exacerbating factors: none Associated symptoms: denies other symptoms Treatments prior to arrival: none Related Data Previous Rx's ?Medication ?Instructions ?Recorded amoxicillin 875 mg-potassium 1 tab PO Q12H #10 tabs 01/27/24 clavulanate 125 mg tablet nadolol 20 mg tablet 10 mg PO DAILY #10 tabs 01/27/24 omeprazole 40 mg capsule,delayed 40 mg PO DAILY@0630 #30 caps 01/27/24 release sucralfate 1 gram tablet 1 g PO BIDAC #180 tabs 01/27/24 acetaminophen 325 mg capsule 325 mg PO Q4H PRN pain #30 caps 03/13/24 (Tylenol) Allergies Allergy/AdvReac Type Severity Reaction Status Date / Time No Known Allergies Allergy Verified 04/26/24 17:14 [No Known Allergies*] Review of Systems Constitutional: Constitutional: Reports no additional constitutional complaints, Denies chills, Denies fever(s) and Denies night sweats Eyes: Eyes: Reports no additional eye complaints, Denies blurry vision, Denies change in vision, Denies diplopia, Denies eye discharge, Denies loss of vision and Denies eye pain ENT: Denies dizziness Cardiovascular: Cardiovascular: Reports no additional cardiovascular complaints, Denies chest pain, Denies lightheadedness, Denies Loss of Consciousness and Denies dyspnea Respiratory: Respiratory: Reports no additional respiratory complaints and Denies dyspnea Gastrointestinal: Gastrointestinal: Reports no additional gastrointestinal complaints, Denies abdominal pain, Denies melena, Denies hematochezia, Denies change in bowel habits and Denies change in stool character Genitourinary: Genitourinary: Reports no additional male genitourinary complaints, Denies hematuria, Denies oliguria, Denies difficulty urinating, Denies dysuria, Denies urinary frequency, Denies urinary hesitancy, Denies urinary incontinence and Denies urinary urgency Musculoskeletal: Musculoskeletal: Reports no additional musculoskeletal complaints, Denies numbness and Denies tingling Neurologic: Denies dizziness, Denies loss of vision, Denies numbness and Denies tingling Psychiatric: Psychiatric: Reports no additional psychiatric complaints Endocrine: Endocrine: Reports no additional endocrine complaints Hematologic/Lymphatic: Hematologic/Lymphatic: Reports no additional hematologic/lymphatic complaints Allergic/Immunologic: Allergic/Immunologic: Reports no additional allergic/immunologic complaints [facility] Past Medical History Attestation statement: The following information was validated with the patient. Source: old records reviewed and nursing notes reviewed Medical History Thrombocytopenia Alcohol withdrawal syndrome Cirrhosis Malnutrition CHF (congestive heart failure) Anemia Aspiration pneumonia Pneumonia Hypomagnesemia Thrombocytopenia Alcoholic liver disease Acute on chronic anemia CHF (congestive heart failure) Anemia Alcohol abuse Surgical History No history of previous surgery Social History Social History Household Members: None Household Members Other:: pt homeless Housing: Homeless Housing Other:: homeless Do you presently have visiting nurse or other home services: No Unable to assess alcohol history related to: Refusing to respond Alcohol intake: current Alcohol intake frequency: 3 or more drinks per day Alcohol type: beer and hard liquor Comment: 1 assist to bathroom Patient Tobacco Use Status: Former Tobacco user Tobacco use type: Cigarette Second Hand Smoke Exposure: No Advance Directives: Yes Advance Directives on File: Yes Advance Directives Date on File: 07/13/23 service: No Physical Exam ED Vital Signs: Vital Signs - 24 hr 04/26/24 17:12 04/26/24 20:05 Temperature 98.2 F 97.9 F Pulse Rate 67 75 Respiratory Rate 20 16 Blood Pressure 125/60 137/73 Pulse Oximetry 93 96 Oxygen Delivery Method Room Air Room Air BMI result Body Mass Index 27.4 Const General: cooperative, no acute distress, alert and awake Nutritional Appearance: well nourished Orientation/consciousness: patient oriented x3 Limitations: no limitations HENMT Head: Yes normal to inspection and Yes atraumatic Ears: hearing grossly normal bilaterally and external ears normal General nose exam: Normal external nose present, no nasal discharge noted and no epistaxis Face and sinus: Yes normal facial exam, No abrasion and No laceration Mouth: Normal oral and palatal mucosa present, no drooling and no muffled voice Eyes General: appearance normal, both eyes and all related structures Periorbital: periorbital findings normal Eyelids: Yes eyelids normal Conjunctivae: conjunctivae normal Pupils: Equal, round and reactive pupils present EOM: EOMs intact bilaterally Neck Neck: Yes normal visual inspection, Yes full ROM and Yes no lymphadenopathy Chest Chest palpation & inspection: normal inspection of the chest Resp Effort & Inspection: normal respiratory effort and able to speak in complete sentences GI Inspection: Yes normal to inspection Neuro General: patient oriented x3 and moves all extremities Cranial nerves: Yes Equal, round and reactive pupils present Cognition (Neuro): normal cognition Motor exam (neuro): 5/5 motor strength present throughout Sensory Exam: Normal double simultaneous stimulation for sensation Coordination: [id number] test normal Extrem General: Yes normal to inspection, Yes full ROM and Yes capillary refill normal Psych Appearance: grossly normal Mental Status: mental status grossly normal Affect: normal affect Attitude: cooperative Thought process: Normal thought process present Thought content: Normal thought content present Insight: Good insight present (Psych) Medical Decision Making Medical Decision Making MDM Narrative: Patient is a 54 year old assigned male at with a history of alcohol abuse presenting to the emergency department today with alcohol intoxication. Patient's physical exam was unremarkable. I explained my physical exam findings to the patient. I answered all questions asked by the patient. Patient remains in physician observation until sober enough for discharge. Differential Diagnosis Differential Diagnoses: The differential diagnosis associated with the presentation includes Alcohol intoxication Admission/Observation Consideration of admission/observation: Escalation of care including admission/observation considered Patient would have been admitted to the hospital had his clinical presentation warranted hospital admission. Independent Historian Clinical information obtained from an independent historian. History obtained from or confirmed by: EMS (EMS provided additional history and confirmed the history provided by the patient) Discharge Plan Discharge Clinical Impression: Alcohol intoxication Patient Disposition: Still a Patient Prescriptions: No Action acetaminophen [Tylenol] 325 mg capsule 325 mg PO Q4H PRN (Reason: pain) Qty: 30 0RF nadolol 20 mg Tablet 10 mg PO DAILY Qty: 10 0RF Protocol: Hold for SBP/HR < HOLD for SBP < : 90 HOLD for HR < : 60 amoxicillin-pot clavulanate 875-125 mg Tablet 1 tab PO Q12H Qty: 10 0RF sucralfate 1 gram Tablet 1 g PO BIDAC Qty: 180 0RF omeprazole 40 mg Capsule,Delayed Release(Dr/Ec) 40 mg PO DAILY@0630 Qty: 30 0RF Print Language: Cam[place]onian
[2024-04-26 17:12] VITALS: BP 125/60; BP 130/72; PULSE 67; PULSE 70; RESP 20; TEMP 36.8; O2SAT 93; BMI 27.4
[2024-04-26 20:05] VITALS: BP 137/73; PULSE 75; RESP 16; TEMP 36.6; O2SAT 96
--- NOTE | 2024-04-26 20:05 | MHC.EDTECH ---
This tech took over care of patient at 1900,hourly rounds and vitals completed,patient is sleeping st this time
[2024-04-26 23:36] VITALS: RESP 16
[2024-04-27 01:41] VITALS: BP 101/46; PULSE 70; RESP 16; TEMP 36.6; O2SAT 95
[2024-04-27 05:22] VITALS: BP 132/61; PULSE 80; RESP 16; TEMP 36.6; O2SAT 95
--- NOTE | 2024-04-27 05:23 | MHC.EDTECH ---
Hourly rounds and vitasl completed,patient urinated 500MLS in urinal,
[2024-04-27 05:55] VITALS: BP 132/61; PULSE 80; RESP 17; TEMP 36.6; O2SAT 98
--- NOTE | 2024-04-27 05:56 | PC.NURSE ---
AMBULTED OUT OF ED WITH STEADY GAIT
== END 2024-04-27 05:56 | disposition home or self-care (01) ==
PROVIDERS: Emergency Provider Internal Medicine
DX: F10.129 Alcohol abuse with intoxication, unspecified (principal); M79.606 Pain in leg, unspecified; Y90.8 Blood alcohol level of 240 mg/100 ml or more; Z87.891 Personal history of nicotine dependence
CPT/HCPCS: 99284

== ENCOUNTER 2024-04-27 18:23 | Emergency (ER) | payer MEDICAID, SELFPAY ==
--- NOTE | ~2024-04-27 | XR_ITS ---
EXAMINATION: XR ANKLE, LEFT CLINICAL INFORMATION: Ankle pain COMPARISON: Left ankle radiographs 03/11/2024, CT abdomen: 03/13/2024 TECHNIQUE: AP, lateral, and mortise views of the left ankle. FINDINGS: There is bilateral soft tissue swelling. Again seen is a linear sclerotic band in the distal tibial metaphysis similar to prior consistent with a stress fracture. No other osseous abnormalities are seen. Marked vascular calcifications are noted. XR/XR ankle LT min 3V IMPRESSION: Redemonstration of a probable stress fracture of the distal tibial metaphysis. If further evaluation is needed, MRI would be the exam of choice which could demonstrate bone marrow edema.
--- NOTE | ~2024-04-27 | US_ITS ---
EXAMINATION: US VENOUS ULTRASOUND WITH DOPPLER LOWER EXTREMITY, LEFT CLINICAL INFORMATION: Left lower extremity pain COMPARISON: None available. TECHNIQUE: Ultrasound of the deep veins is performed from the hip to the calf with compression sonography and color and pulse Doppler assessment. Spectral analysis with color-flow imaging is performed. FINDINGS: There is normal venous compression and respiratory variation and augmented flow. The visualized common femoral vein, superficial femoral vein, profunda femoral vein, popliteal vein, and the trifurcation region shows no evidence of deep venous thrombosis. There is no significant popliteal fossa cyst. Left calf edema is present. If the patient's symptoms persist, followup ultrasound in 5 days 7 days might be of value to exclude proximal propagation from a non-visualized calf vein. US/US venous duplex LE IMPRESSION: No DVT demonstrated in the left lower extremity.
[2024-04-27 18:32] VITALS: BP 115/68; PULSE 90; O2SAT 90
[2024-04-27 19:09] VITALS: BMI 22.8
--- NOTE | 2024-04-27 20:22 | ED.GENADULT ---
HPI - General Adult General Chief complaint: General Medical Stated complaint: right ankle pain and swelling, ETOH Time Seen by Provider: 04/27/24 18:27 Source: patient, RN notes reviewed and old records reviewed Mode of arrival: EMS Limitations: no limitations History of Present Illness ED Provider: Warner VIVAR narrative: 54-year-old male past medical history significant for alcohol dependence, pancytopenia presents for evaluation of left ankle pain Patient has had pain to his left ankle for over a month. Patient had a CT scan on March 13, 2024 which showed a likely stress fracture of the left distal tibial metaphysis Patient states that he still has burning pain with walking Denies any more recent injury His pain is / Related Data Previous Rx's ?Medication ?Instructions ?Recorded amoxicillin 875 mg-potassium 1 tab PO Q12H #10 tabs 01/27/24 clavulanate 125 mg tablet nadolol 20 mg tablet 10 mg PO DAILY #10 tabs 01/27/24 omeprazole 40 mg capsule,delayed 40 mg PO DAILY@0630 #30 caps 01/27/24 release sucralfate 1 gram tablet 1 g PO BIDAC #180 tabs 01/27/24 acetaminophen 325 mg capsule 325 mg PO Q4H PRN pain #30 caps 03/13/24 (Tylenol) Allergies Allergy/AdvReac Type Severity Reaction Status Date / Time No Known Allergies Allergy Verified 04/27/24 19:10 [No Known Allergies*] Review of Systems Constitutional: Constitutional: Denies body ache(s), Denies chills and Denies headache(s) ENT: Denies headache(s) Cardiovascular: Cardiovascular: Denies chest pain and Denies dyspnea Respiratory: Respiratory: Denies cough and Denies dyspnea Gastrointestinal: Gastrointestinal: Denies abdominal pain Musculoskeletal: Musculoskeletal: Reports arthralgias, Reports joint swelling and Reports limited range of motion Integumentary/Breasts: Skin/Breast: Denies erythema and Denies wounds Neurologic: Denies headache(s) [facility] Past Medical History Medical History Thrombocytopenia Alcohol withdrawal syndrome Cirrhosis Malnutrition CHF (congestive heart failure) Anemia Aspiration pneumonia Pneumonia Hypomagnesemia Thrombocytopenia Alcoholic liver disease Acute on chronic anemia CHF (congestive heart failure) Anemia Alcohol abuse Surgical History No history of previous surgery Social History Social History Household Members: None Household Members Other:: pt homeless Housing: Homeless Housing Other:: homeless Do you presently have visiting nurse or other home services: No Unable to assess alcohol history related to: Refusing to respond Alcohol intake: current Alcohol intake frequency: 3 or more drinks per day Alcohol type: beer and hard liquor Comment: 1 assist to bathroom Patient Tobacco Use Status: Former Tobacco user Tobacco use type: Cigarette Second Hand Smoke Exposure: No Advance Directives: Yes Advance Directives on File: Yes Advance Directives Date on File: 07/13/23 service: No Physical Exam ED Vital Signs: Vital Signs - 24 hr 04/27/24 21:31 Temperature 98.7 F Pulse Rate 81 Respiratory Rate 16 Blood Pressure 103/55 L Pulse Oximetry 92 Oxygen Delivery Method Room Air BMI result Body Mass Index 22.8 Const General: healthy appearing, comfortable, no acute distress, alert and awake Nutritional Appearance: well nourished Orientation/consciousness: patient oriented x3 HENMT Head: Yes normocephalic and Yes atraumatic Eyes Eyelids: Yes eyelids normal Conjunctivae: conjunctivae normal Sclerae: sclerae normal Corneas: corneas normal Pupils: Equal, round and reactive pupils present EOM: EOMs intact bilaterally Neck Neck: Yes full ROM Resp Effort & Inspection: normal respiratory effort, able to speak in complete sentences and not labored GI Inspection: No distended Palpation (GI): Soft to palpation, not firm, nontender, no guarding and not rigid Skin General skin exam: elasticity normal Neuro General: patient oriented x3 Cranial nerves: Yes Equal, round and reactive pupils present and Yes Bilaterally intact EOM present Cognition (Neuro): normal cognition Extrem Other: Patient has moderate edema to the left lateral ankle. He has tender over the left lateral malleolus. No overlying skin changes, no erythema, no wounds, no ecchymosis. Course Reevaluation(s) Reevaluation #1: Patient resting comfortably, his x-ray shows likely chronic distal tibial fracture. Patient will have to follow up with Orthopedics regarding this. Likely plan for discharge when sober in the a.m. Time: 01:21 Medical Decision Making Medical Decision Making MDM Narrative: 54-year-old male presents for evaluation of left ankle pain. His repeat imaging shows concern for stress fracture but no acute findings. This fracture has been present for at least a month. No indication for splinting at this time. We will get an ultrasound to rule out DVT Differential Diagnosis Differential Diagnoses: The differential diagnosis associated with the presentation includes Left leg pain Left ankle fracture DVT Ankle sprain Alcohol abuse Independent Interpretation I performed an independent interpretation of an: Plain X-Ray (No acute displaced fracture) Radiology Impression Discussion of test interpretation with radiology: I have reviewed the radiologist's reading. Radiologist Impression: US/US venous duplex LE LT IMPRESSION: No DVT demonstrated in the left lower extremity. XR/XR ankle LT min 3V IMPRESSION: Redemonstration of a probable stress fracture of the distal tibial metaphysis. If further evaluation is needed, MRI would be the exam of choice which could demonstrate bone marrow edema. Discharge Plan Discharge Clinical Impression: Alcohol use disorder, Fracture of left ankle Patient Disposition: Still a Patient Instructions: Leg Fracture (ED) Additional Instructions: You have a fracture of your left ankle. It is important that you follow-up with orthopedics, call the number provided Monday to schedule an appointment for follow-up Prescriptions: No Action acetaminophen [Tylenol] 325 mg capsule 325 mg PO Q4H PRN (Reason: pain) Qty: 30 0RF nadolol 20 mg Tablet 10 mg PO DAILY Qty: 10 0RF Protocol: Hold for SBP/HR < HOLD for SBP < : 90 HOLD for HR < : 60 amoxicillin-pot clavulanate 875-125 mg Tablet 1 tab PO Q12H Qty: 10 0RF sucralfate 1 gram Tablet 1 g PO BIDAC Qty: 180 0RF omeprazole 40 mg Capsule,Delayed Release(Dr/Ec) 40 mg PO DAILY@0630 Qty: 30 0RF Referrals: Malena Marcus MD [Physician] - (left ankle fracture) Print Language: [place]ib[place]ian
[2024-04-27 21:31] VITALS: BP 103/55; PULSE 81; RESP 16; TEMP 37.1; O2SAT 92
[2024-04-28 04:00] VITALS: RESP 16
[2024-04-28 06:00] VITALS: BP 134/62; PULSE 82; RESP 16; TEMP 36.7; O2SAT 94
[2024-04-28 06:39] VITALS: BP 134/62; PULSE 82; RESP 16; TEMP 36.7; O2SAT 94
== END 2024-04-28 06:30 | disposition still patient (30) ==
PROVIDERS: Emergency Provider Emergency Medicine
DX: F10.19 Alcohol abuse with unspecified alcohol-induced disorder (principal); Y90.9 Presence of alcohol in blood, level not specified; S82.892D Other fracture of left lower leg, subsequent encounter for closed fracture with routine healing; X58.XXXD Exposure to other specified factors, subsequent encounter; R60.0 Localized edema; Z87.891 Personal history of nicotine dependence
CPT/HCPCS: 73610; 93971; 99284

== ENCOUNTER 2024-04-29 19:46 | Emergency (ER) | payer MEDICAID, SELFPAY ==
--- NOTE | ~2024-04-29 | CT_ITS ---
EXAMINATION: CT HEAD WITHOUT CONTRAST CLINICAL INFORMATION: Intoxicated found down COMPARISON: CT head from 01/17/2024 TECHNIQUE: Contiguous axial imaging was performed from the skull base to vertex without intravenous administration of contrast. This CT examination was performed using dose optimization techniques as appropriate, variously including the following: *Automated exposure control *Adjustment of mA and/or kV according to patient size (this includes techniques or standardized protocols for targeted exams where dose is matched to indication/reason for exam; i.e. extremities or head) *Use of iterative reconstruction technique DLP: 551 mGy-cm FINDINGS: There is no evidence of acute intracranial hemorrhage or territorial infarction. Chronic white matter small vessel ischemic changes. Cerebral atrophy with commensurate ventricular changes. No abnormal mass effect or midline shift is seen. [place] to white matter differentiation is well preserved. No extra-axial fluid collections are identified. The ventricles are normal in size. There is no abnormal attenuation within the brain parenchyma. The osseous structures and soft tissues are normal. The mastoid air cells and visualized portions of the paranasal sinuses are well aerated. CT/CT head/brain wo IV con IMPRESSION: 1. No acute intracranial pathology. 2. Chronic white matter small vessel ischemic changes.
--- NOTE | ~2024-04-29 | XR_ITS ---
EXAMINATION: XR CHEST CLINICAL INFORMATION: Shortness of breath COMPARISON: Previous chest x-ray most recent 04/18/[address] July 2023 TECHNIQUE: 2 views of the chest were obtained. FINDINGS: The cardiac silhouette is upper normal in size. Mediastinal contours are unremarkable. There are increased central bronchovascular markings and central interstitial markings and attenuation similar to previous exams questionable for chronic interstitial disease. There is new subsegmental atelectasis at the left lung base. No pleural effusion or pneumothorax. Severe old appearing T9 vertebral body compression fracture and sternal fracture unchanged from previous exams. XR/XR chest 2V IMPRESSION: Question chronic interstitial lung disease with increased central bronchovascular markings and interstitial markings and attenuation similar to previous exams. New subsegmental atelectasis at the left lung base.
[2024-04-29 20:13] VITALS: BP 121/59; PULSE 82; RESP 20; TEMP 36.7; O2SAT 95; BMI 19.4
--- NOTE | 2024-04-29 20:56 | ECG_ITS ---
Test Reason : HYPOXIA Blood Pressure : / mmHG Vent. Rate : 077 BPM Atrial Rate : 077 BPM P-R Int : 148 ms QRS Dur : 088 ms QT Int : 416 ms P-R-T Axes : 051 025 042 degrees QTc Int : 470 ms Sinus rhythm with Premature atrial complexes Otherwise normal ECG When compared with ECG of 29-AUG-2023 01:54, Premature atrial complexes are now Present QRS axis Shifted left Criteria for Lateral infarct are no longer Present Nonspecific T wave abnormality, improved in Inferior leads Nonspecific T wave abnormality no longer evident in Anterolateral leads Referred By: Frederick Nation Electronically Signed By:Brayan Negron
--- NOTE | 2024-04-29 21:15 | ED.GENADULT ---
HPI - General Adult General Chief complaint: ETOH/Substance Use Stated complaint: FALL Time Seen by Provider: 04/29/24 20:55 Source: patient, RN notes reviewed and old records reviewed Mode of arrival: EMS Limitations: other (Alcohol intoxication) History of Present Illness ED Provider: Chapis HPI narrative: 54-year-old male with past medical history significant for alcohol abuse presents for evaluation of ?drowsiness. ? Patient was found in the community lying on the ground, he denies falling or hitting his head He complains of burning to his left lower leg. He does have a stress fracture of the distal tibia documented in February of 2024. The patient denies any shortness of breath but was found to be hypoxic to 88% in the community He denies any other complaints or concerns at this time Related Data Previous Rx's ?Medication ?Instructions ?Recorded amoxicillin 875 mg-potassium 1 tab PO Q12H #10 tabs 01/27/24 clavulanate 125 mg tablet nadolol 20 mg tablet 10 mg PO DAILY #10 tabs 01/27/24 omeprazole 40 mg capsule,delayed 40 mg PO DAILY@0630 #30 caps 01/27/24 release sucralfate 1 gram tablet 1 g PO BIDAC #180 tabs 01/27/24 acetaminophen 325 mg capsule 325 mg PO Q4H PRN pain #30 caps 03/13/24 (Tylenol) Allergies Allergy/AdvReac Type Severity Reaction Status Date / Time No Known Allergies Allergy Verified 04/29/24 20:15 [No Known Allergies*] Review of Systems Constitutional: Constitutional: Denies body ache(s), Denies chills and Denies fever(s) Eyes: Eyes: Denies blurry vision ENT: Denies dizziness and Denies sore throat Cardiovascular: Cardiovascular: Denies chest pain and Denies dyspnea Respiratory: Respiratory: Denies cough and Denies dyspnea Gastrointestinal: Gastrointestinal: Denies abdominal pain, Denies nausea and Denies vomiting Musculoskeletal: Musculoskeletal: Denies back pain, Reports arthralgias and Reports joint swelling Integumentary/Breasts: Skin/Breast: Denies rash Neurologic: Denies dizziness Psychiatric: Psychiatric: Denies anxiety PMFSH Past Medical History Medical History Thrombocytopenia Alcohol withdrawal syndrome Cirrhosis Malnutrition CHF (congestive heart failure) Anemia Aspiration pneumonia Pneumonia Hypomagnesemia Thrombocytopenia Alcoholic liver disease Acute on chronic anemia CHF (congestive heart failure) Anemia Alcohol abuse Surgical History No history of previous surgery Social History Social History Household Members: None Household Members Other:: pt homeless Housing: Homeless Housing Other:: homeless Do you presently have visiting nurse or other home services: No Unable to assess alcohol history related to: Refusing to respond Alcohol intake: current Alcohol intake frequency: 3 or more drinks per day Alcohol type: beer and hard liquor Comment: 1 assist to bathroom Patient Tobacco Use Status: Former Tobacco user Tobacco use type: Cigarette Second Hand Smoke Exposure: No Advance Directives: Yes Advance Directives on File: Yes Advance Directives Date on File: 07/13/23 service: No Physical Exam ED Vital Signs: Vital Signs - 24 hr 04/29/24 20:13 04/29/24 22:55 04/29/24 23:52 Temperature 98.1 F 98.4 F Pulse Rate 82 74 77 Respiratory Rate 20 16 16 Blood Pressure 121/59 L 96/69 Pulse Oximetry 95 93 87 L Oxygen Delivery Method Nasal Cannula Nasal Cannula Room Air Oxygen Flow Rate 2 BMI result Body Mass Index 19.4 Const General: healthy appearing, comfortable, no acute distress, alert and awake Nutritional Appearance: well nourished Orientation/consciousness: patient oriented x3 HENMT Head: Yes normocephalic and Yes atraumatic Eyes Eyelids: Yes eyelids normal Conjunctivae: conjunctivae normal Sclerae: sclerae normal Corneas: corneas normal Pupils: Equal, round and reactive pupils present EOM: EOMs intact bilaterally Neck Neck: Yes full ROM Resp Effort & Inspection: normal respiratory effort, able to speak in complete sentences, no audible wheezes and not labored Auscultation: clear to auscultation bilaterally Cardio Other: 2+ pitting edema left greater than right Rate: regular rate Rhythm: regular rhythm GI Inspection: No distended Palpation (GI): Soft to palpation, not firm, nontender, no guarding and not rigid Skin General skin exam: elasticity normal Neuro General: patient oriented x3 Cranial nerves: Yes Equal, round and reactive pupils present and Yes Bilaterally intact EOM present Cognition (Neuro): normal cognition Extrem Other: Moving all extremities well without any obvious deformities Course Reevaluation(s) Reevaluation #1: Patient has been mildly hypotensive to 87% on room air, he was placed on 2 L is 94%. This may be related to his significant alcohol intoxication. His lungs are clear to auscultation, chest x-ray does not show any pleural effusions or pneumonia. Plan for re-evaluation when sober. Patient is signed out to overnight staff. Likely discharge in the morning Time: 01:53 Medications Administered Discontinued Medications Generic Name Dose Route Start Last Admin Trade Name David PRN Reason Stop Dose Admin Acetaminophen 650 mg 04/29/24 21:02 04/29/24 21:16 Acetaminophen 325 Mg Tablet PO 04/29/24 21:03 650 mg ONCE ONE Administration Medical Decision Making Medical Decision Making [facility] Narrative: 64-year-old male who was well until this hospital for frequent visits due to alcohol abuse presents for evaluation of ?drowsiness. ? He denies any fall or head strike. Given his intoxicated state and complaints of drowsiness being found down will get a CT scan of the brain. He was worked up for DVT just a couple of days ago which was negative. He has a known stress fracture of the distal tibia. Plan for chest x-ray, labs including BNP to evaluate for the hypoxia. The patient is high risk for aspiration pneumonia Differential Diagnosis Differential Diagnoses: The differential diagnosis associated with the presentation includes Hypoxia Aspiration pneumonia Community-acquired pneumonia CHF Alcohol abuse PE less likely Lab Data 04/29/24 21:47 04/29/24 21:47 Labs: Lab Results 04/29/24 04/29/24 Range/Units 21:47 22:11 WBC 3.2 L (4.8-10.8) X10*3/uL RBC 3.33 L (4.60-5.80) X10*6/uL Hgb 10.2 L (14.0-18.0) g/dl Hct 31.2 L (42.0-52.0) % MCV 93.7 (80.0-98.0) fL MCH 30.6 (27.0-33.0) pg MCHC 32.7 (31.0-36.0) g/dl RDW 15.7 (11.0-16.0) % Plt Count 48 L D (160-400) X10*3/uL MPV 10.2 (9.4-12.4) fL Immature Gran % (Auto) 0.0 (0.0-0.4) % Neut % (Auto) 40.4 L (45-73) % Lymph % (Auto) 42.2 H (20-40) % [place] % (Auto) 12.1 H (2-11) % Eos % (Auto) 3.7 (0-4) % Baso % (Auto) 1.6 (0-2) % Lymph # (Auto) 1.4 (1.2-4.9) X10*3/uL [place] # (Auto) 0.4 (0.1-1.2) X10*3/uL Eos # (Auto) 0.1 (0.0-0.4) X10*3/uL Baso # (Auto) 0.1 (0.0-0.2) X10*3/uL Abs Immat Gran (auto) 0.00 (0.00-0.03) X10*3/uL Absolute Neuts (auto) 1.3 L (2.0-8.3) x10*3/uL Absolute Nucleated RBC 0.000 (0.0-0.012) X10*3/uL Nucleated RBC % (auto) 0.0 (0.0-0.2) /100WBC Smear Tech's Comments VERIFIED PT 15.2 H (11.1-13.3) SEC INR 1.3 H (0.9-1.1) Sodium 144 (135-145) mmol/L Potassium 3.7 (3.3-5.1) mmol/L Chloride 111 H (96-108) mmol/L Carbon Dioxide 24 (22-29) mmol/L Anion Gap 13 (12-20) BUN 8 L (9-16) mg/dL Creatinine 0.78 (0.5-1.4) mg/dL Estim Creat Clear Calc 82.3 Estimated GFR > 60 Random Glucose 98 (60-115) mg/dL Calcium 8.9 (8.4-10.2) mg/dL Total Bilirubin 0.5 (0.0-1.0) mg/dL AST 44 H (5-37) U/L ALT 11 (0-40) U/L Alkaline Phosphatase 122 H (39-117) U/L Total Protein 8.4 H (6.5-8.0) g/dL Albumin 3.6 (3.5-5.0) g/dL Lipase 33 (8-78) U/L Urine Color Dark Yellow Urine Appearance Clear Urine pH 6.0 (5.0-9.0) Ur Specific [place] 1.010 (1.005-1.025) Urine Protein 30 (1+) H (Neg-Trace) mg/dL Urine Glucose (UA) Negative (Negative) mg/dL Urine Ketones Negative (Negative) mg/dL Urine Blood Large (3+) H (Negative) Urine Nitrite Negative (Negative) Ur Leukocyte Esterase Trace H (Negative) Urine RBC >20 H (0-2) /HPF Urine WBC 0-5 (0-5) /HPF Ur Squamous Epith Cells 0-2 (0-2) /HPF Urine Bacteria None Seen (None Seen) Hyaline Casts 0-2 (0-2) /LPF Ethyl Alcohol 373 H* mg/dL Influenza Type A (PCR) NEGATIVE (Negative) Influenza Type B (PCR) NEGATIVE (Negative) RSV RNA Qual (PCR) NEGATIVE (Negative) SARS-CoV-2 RNA (RT-PCR) NEGATIVE (Negative) Discharge Plan Discharge Clinical Impression: Alcohol intoxication Patient Disposition: Still a Patient Instructions: Abuse of Alcohol (ED) Additional Instructions: Avoid excessive consumption of alcohol Follow-up with your primary doctor Return for new or worsening symptoms Prescriptions: No Action acetaminophen [Tylenol] 325 mg capsule 325 mg PO Q4H PRN (Reason: pain) Qty: 30 0RF nadolol 20 mg Tablet 10 mg PO DAILY Qty: 10 0RF Protocol: Hold for SBP/HR < HOLD for SBP < : 90 HOLD for HR < : 60 amoxicillin-pot clavulanate 875-125 mg Tablet 1 tab PO Q12H Qty: 10 0RF sucralfate 1 gram Tablet 1 g PO BIDAC Qty: 180 0RF omeprazole 40 mg Capsule,Delayed Release(Dr/Ec) 40 mg PO DAILY@0630 Qty: 30 0RF Print Language: Somali
[2024-04-29] MEDS: Acetaminophen 325 MG TABLET 650 MG PO (21:16)
[2024-04-29 21:55] LABS: Basophils Absolute Auto 0.1 X10*3/uL (0.0-0.2); Basophils Percent Auto 1.6 % (0-2); Eosinophils Absolute Auto 0.1 X10*3/uL (0.0-0.4); Eosinophils Percent Auto 3.7 % (0-4); Hematocrit 31.2 % (42.0-52.0); Hemoglobin 10.2 g/dl (14.0-18.0); Lymphocytes Absolute Auto 1.4 X10*3/uL (1.2-4.9); Lymphocytes Percent Auto 42.2 % (20-40); Mean Corpuscular HGB Conc 32.7 g/dl (31.0-36.0); Mean Corpuscular Hemoglobin 30.6 pg (27.0-33.0); Mean Corpuscular Volume 93.7 fL (80.0-98.0); Mean Platelet Volume 10.2 fL (9.4-12.4); Monocytes Absolute Auto 0.4 X10*3/uL (0.1-1.2); Monocytes Percent Auto 12.1 % (2-11); Neutrophils Absolute Auto 1.3 x10*3/uL (2.0-8.3); Neutrophils Percent Auto 40.4 % (45-73); Red Blood Count 3.33 X10*6/uL (4.60-5.80); Red Cell Distribution Width 15.7 % (11.0-16.0); White Blood Count 3.2 X10*3/uL (4.8-10.8)
[2024-04-29 22:03] LABS: INTERNATIONAL NORM RATIO 1.3 (0.9-1.1); Prothrombin Time 15.2 SEC (11.1-13.3)
[2024-04-29 22:04] LABS: MANUAL DIFF FLAG SCAN
[2024-04-29 22:09] LABS: Ethanol 373 mg/dL
[2024-04-29 22:11] LABS: Alanine Aminotransferase 11 U/L (0-40); Albumin Level 3.6 g/dL (3.5-5.0); Alkaline Phosphatase 122 U/L (39-117); Anion Gap 13 (12-20); Aspartate Amino Transferase 44 U/L (5-37); Bilirubin Total 0.5 mg/dL (0.0-1.0); Blood Urea Nitrogen 8 mg/dL (9-16); Calcium 8.9 mg/dL (8.4-10.2); Carbon Dioxide 24 mmol/L (22-29); Chloride 111 mmol/L (96-108); Creatinine Clr Calc Pharmacy 82.3; Estimated Glomerular Filt Rate > 60; Glucose Random 98 mg/dL (60-115); Lipase 33 U/L (8-78); Potassium 3.7 mmol/L (3.3-5.1); Sodium 144 mmol/L (135-145); Total Protein 8.4 g/dL (6.5-8.0)
[2024-04-29 22:14] LABS: Platelet Count 48 X10*3/uL (160-400)
[2024-04-29 22:15] LABS: SLIDE REVIEW VERIFIED
[2024-04-29 22:21] LABS: Appearance Urine Clear; Glucose Urine UA Negative (Negative); Leukocyte Esterase Urine Trace (Negative); Nitrite Urine Negative (Negative); UMIC TRIGGER UACC YES; Urine Blood Large (3+) (Negative); Urine Ketones Negative (Negative); Urine Protein 30 (1+) mg/dL (Neg-Trace)
[2024-04-29 22:22] LABS: Bacteria Urine None Seen (None Seen); Color Urine Dark Yellow; Hyaline Casts Urine 0-2 /LPF (0-2); RBC Urine >20 /HPF (0-2); Squamous Epithelial Cell Urine 0-2 /HPF (0-2); WBC Urine 0-5 /HPF (0-5)
[2024-04-29 22:36] LABS: Influenza A PCR NEGATIVE (Negative); Influenza B PCR NEGATIVE (Negative); Resp Syncy Virus RNA Qual PCR NEGATIVE (Negative); SARS COV2 PCR INHOUSE NEGATIVE (Negative)
[2024-04-29 22:55] VITALS: BP 96/69; PULSE 74; RESP 16; TEMP 36.9; O2SAT 93
[2024-04-29 23:52] VITALS: PULSE 77; RESP 16; O2SAT 87
[2024-04-30 03:19] VITALS: PULSE 65; RESP 14; O2SAT 99
[2024-04-30 06:06] VITALS: BP 106/58; PULSE 71; RESP 16; O2SAT 96
[2024-04-30 07:17] VITALS: BP 113/63; PULSE 65; RESP 12; TEMP 36.4; O2SAT 96
--- NOTE | 2024-04-30 08:03 | PC.NURSE ---
patient awake, sitting up in bed and provided with breakfast
[2024-04-30 09:18] VITALS: BP 113/63; PULSE 65; RESP 16; TEMP 36.4; O2SAT 94
== END 2024-04-30 09:18 | disposition home or self-care (01) ==
PROVIDERS: Physician Assistant; Emergency Provider Student in an Organized Health Care Education/Training Program
DX: F10.129 Alcohol abuse with intoxication, unspecified (principal); Y90.8 Blood alcohol level of 240 mg/100 ml or more; R09.02 Hypoxemia; R94.31 Abnormal electrocardiogram [ECG] [EKG]; R51.9 Headache, unspecified; M79.605 Pain in left leg; Z03.818 Encounter for observation for suspected exposure to other biological agents ruled out; Z79.899 Other long term (current) drug therapy
CPT/HCPCS: 0241U; 36415; 70450; 71046; 80053; 80307; 81001; 83690; 85025; 85610; 93005; 99284; 99285

== ENCOUNTER → 2024-04-29 20:56 | Outpatient (BNV) | payer MEDICAID, SELFPAY | PROVIDERS: Emergency Provider Student in an Organized Health Care Education/Training Program; Visit Provider Internal Medicine Cardiovascular Disease | DX: I49.1 Atrial premature depolarization (principal); R94.31 Abnormal electrocardiogram [ECG] [EKG] | CPT/HCPCS: 93010 ==

== ENCOUNTER 2024-05-01 20:59 | Emergency (ER) | payer MEDICAID, SELFPAY ==
[2024-05-01 20:59] VITALS: BP 125/72; BP 134/78; PULSE 78; PULSE 84; RESP 15; TEMP 36.2; O2SAT 90; O2SAT 93; BMI 26.0
--- NOTE | 2024-05-01 21:21 | ED.GENADULT ---
HPI - General Adult General Chief complaint: ETOH/Substance Use Stated complaint: ETOH,LEG PAIN Time Seen by Provider: 05/01/24 21:06 Source: patient and EMS Mode of arrival: EMS Limitations: other (Acute EtOH intoxication) History of Present Illness HPI narrative: Patient is a 54-year-old male who presents emergency department via EMS for evaluation, he appears acutely intoxicated, reportedly personnel from the liquor store called as he was sitting outside and refused to leave the premises. When asked, he states he does not know why he is here or how he was brought here. He does admit to daily ETOH consumption reporting that he drinks 40 oz of beer and a half pt of vodka daily and is not interested in detox. He admits to having pain in left ankle for a long time , without numbness tingling or recent reportable injury Related Data Previous Rx's ?Medication ?Instructions ?Recorded amoxicillin 875 mg-potassium 1 tab PO Q12H #10 tabs 01/27/24 clavulanate 125 mg tablet nadolol 20 mg tablet 10 mg PO DAILY #10 tabs 01/27/24 omeprazole 40 mg capsule,delayed 40 mg PO DAILY@0630 #30 caps 01/27/24 release sucralfate 1 gram tablet 1 g PO BIDAC #180 tabs 01/27/24 acetaminophen 325 mg capsule 325 mg PO Q4H PRN pain #30 caps 03/13/24 (Tylenol) Allergies Allergy/AdvReac Type Severity Reaction Status Date / Time No Known Allergies Allergy Verified 05/01/24 21:02 [No Known Allergies*] Review of Systems Review of Systems: Yes all other systems are reviewed and are negative PMFSH Past Medical History Attestation statement: The following information was validated with the patient. Source: old records reviewed Medical History Thrombocytopenia Alcohol withdrawal syndrome Cirrhosis Malnutrition CHF (congestive heart failure) Anemia Aspiration pneumonia Pneumonia Hypomagnesemia Thrombocytopenia Alcoholic liver disease Acute on chronic anemia CHF (congestive heart failure) Anemia Alcohol abuse Surgical History No history of previous surgery Social History Social History Household Members: None Household Members Other:: pt homeless Housing: Homeless Housing Other:: homeless Do you presently have visiting nurse or other home services: No Unable to assess alcohol history related to: Refusing to respond Alcohol intake: current Alcohol intake frequency: 3 or more drinks per day Alcohol type: beer and hard liquor Comment: 1 assist to bathroom Patient Tobacco Use Status: Former Tobacco user Tobacco use type: Cigarette Second Hand Smoke Exposure: No Advance Directives: Yes Advance Directives on File: Yes Advance Directives Date on File: 07/13/23 service: No Physical Exam ED Vital Signs: Vital Signs - 24 hr 05/01/24 20:59 05/02/24 00:30 05/02/24 05:08 Temperature 97.1 F 97.6 F Pulse Rate 78 82 86 Respiratory Rate 15 16 18 Blood Pressure 125/72 102/54 L 99/60 Pulse Oximetry 90 L 93 94 Oxygen Delivery Method Room Air Room Air Room Air 05/02/24 09:12 Temperature 98.7 F Pulse Rate 80 Respiratory Rate 16 Blood Pressure 108/57 L Pulse Oximetry 95 Oxygen Delivery Method Room Air BMI result Body Mass Index 26.0 Appearance: Alert.?Oriented to person, place and time. No acute distress.?Normal affect. Eyes: Pupils equal, round and reactive to light.? ENT: Pharynx normal.?? Neck: Normal inspection.? Neck supple.?? CVS: Heart sounds normal. Normal heart rate and rhythm.? Pulses normal.?? Respiratory: No respiratory distress.? Lung sounds clear to auscultation bilaterally?? Abdomen: Soft and non-tender. Normoactive bowel sounds. .?? Skin: Skin warm and dry.? Normal skin color.? Normal skin turgor.?? Extremities: No nonpitting edema to the left ankle/midfoot. 2+ DP/PT pulse bilaterally.? No calf ttp? Neuro: Moves all extremities spontaneously. Sensation intact bilaterally. CN II-XII intact. No focal neuro deficits. Ambulates with normal steady gait. Course Course Course Narrative: labs at baseline clinically sober stable for DC observation care revealed that the patient does not meet medical necessity for hospitalization. final disposition discussed with the patient. The patient completed observation care at 938am. Total time in observation care was 9 hours. Medical Decision Making Medical Decision Making MDM Narrative: Patient is a 54-year-old male who presents emergency department via EMS acutely intoxicated, he is homeless, was sitting outside of the premises of the [employer] store refusing to leave, presumably current complaint is ongoing left ankle pain as per HPI. Recent CT in March of 2024 reveals a likely stress fracture of the left distal tibial metaphysis, the extremity is neurovascularly intact distally, venous duplex ultrasound was obtained 4 days ago without evidence of DVT, he was recommended to follow-up with orthopedics for further evaluation of chronic pain, he states he did not called them yet. And to obtain basic labs for evaluation, anticipate that he will require physician observation until clinical sobriety present for safe disposition planning. Will again offer if he is interested in detox services at that time. Differential Diagnosis Differential Diagnoses: The differential diagnosis associated with the presentation includes (See narrative above) Admission/Observation Consideration of admission/observation: Escalation of care including admission/observation considered (See narrative above) Lab Data MDM Lab Attestation statement: I reviewed the patient's lab results. Chronic leukopenia, normocytic anemia and thrombocytopenia. Chemistries consistent with baseline. Ethyl alcohol level 422 05/01/24 21:41 05/01/24 21:41 Labs: Lab Results 05/01/24 Range/Units 21:41 WBC 3.2 L (4.8-10.8) X10*3/uL RBC 3.46 L (4.60-5.80) X10*6/uL Hgb 10.7 L (14.0-18.0) g/dl Hct 32.9 L (42.0-52.0) % MCV 95.1 (80.0-98.0) fL MCH 30.9 (27.0-33.0) pg MCHC 32.5 (31.0-36.0) g/dl RDW 15.6 (11.0-16.0) % Plt Count 52 L (160-400) X10*3/uL MPV 11.3 (9.4-12.4) fL Immature Gran % (Auto) 0.3 (0.0-0.4) % Neut % (Auto) 50.4 (45-73) % Lymph % (Auto) 29.4 (20-40) % [place] % (Auto) 15.8 H (2-11) % Eos % (Auto) 2.5 (0-4) % Baso % (Auto) 1.6 (0-2) % Lymph # (Auto) 0.9 L (1.2-4.9) X10*3/uL [place] # (Auto) 0.5 (0.1-1.2) X10*3/uL Eos # (Auto) 0.1 (0.0-0.4) X10*3/uL Baso # (Auto) 0.1 (0.0-0.2) X10*3/uL Abs Immat Gran (auto) 0.01 (0.00-0.03) X10*3/uL Absolute Neuts (auto) 1.6 L (2.0-8.3) x10*3/uL Absolute Nucleated RBC 0.000 (0.0-0.012) X10*3/uL Nucleated RBC % (auto) 0.0 (0.0-0.2) /100WBC Sodium 146 H (135-145) mmol/L Potassium 4.1 (3.3-5.1) mmol/L Chloride 114 H (96-108) mmol/L Carbon Dioxide 23 (22-29) mmol/L Anion Gap 13 (12-20) BUN 14 (9-16) mg/dL Creatinine 1.03 (0.5-1.4) mg/dL Estim Creat Clear Calc 59.6 Estimated GFR > 60 Random Glucose 108 (60-115) mg/dL Calcium 9.2 (8.4-10.2) mg/dL Total Bilirubin 0.5 (0.0-1.0) mg/dL AST 45 H (5-37) U/L ALT 10 (0-40) U/L Alkaline Phosphatase 155 H (39-117) U/L Total Protein 8.9 H (6.5-8.0) g/dL Albumin 3.7 (3.5-5.0) g/dL Ethyl Alcohol 422 H* mg/dL Independent Historian Clinical information obtained from an independent historian. History obtained from or confirmed by: EMS External Record Review External record reviewed: Outpatient record Discharge Plan Discharge Clinical Impression: Alcohol intoxication Qualifiers: Complication of substance-induced condition: uncomplicated Qualified Code(s): F10.920 - Alcohol use, unspecified with intoxication, uncomplicated Patient Disposition: Home, Self-Care Instructions: Abuse of Alcohol (ED) Additional Instructions: return for worsening symptoms or concerns decrease your ETOH intake Prescriptions: No Action acetaminophen [Tylenol] 325 mg capsule 325 mg PO Q4H PRN (Reason: pain) Qty: 30 0RF nadolol 20 mg Tablet 10 mg PO DAILY Qty: 10 0RF Protocol: Hold for SBP/HR < HOLD for SBP < : 90 HOLD for HR < : 60 amoxicillin-pot clavulanate 875-125 mg Tablet 1 tab PO Q12H Qty: 10 0RF sucralfate 1 gram Tablet 1 g PO BIDAC Qty: 180 0RF omeprazole 40 mg Capsule,Delayed Release(Dr/Ec) 40 mg PO DAILY@0630 Qty: 30 0RF Print Language: Slovenian
[2024-05-01 21:45] LABS: MANUAL DIFF FLAG NO
[2024-05-01 21:46] LABS: Basophils Absolute Auto 0.1 X10*3/uL (0.0-0.2); Basophils Percent Auto 1.6 % (0-2); Eosinophils Absolute Auto 0.1 X10*3/uL (0.0-0.4); Eosinophils Percent Auto 2.5 % (0-4); Hematocrit 32.9 % (42.0-52.0); Hemoglobin 10.7 g/dl (14.0-18.0); Imm Gran Abs Auto 0.01 X10*3/uL (0.00-0.03); Imm Gran Pct Auto 0.3 % (0.0-0.4); Lymphocytes Absolute Auto 0.9 X10*3/uL (1.2-4.9); Lymphocytes Percent Auto 29.4 % (20-40); Mean Corpuscular HGB Conc 32.5 g/dl (31.0-36.0); Mean Corpuscular Hemoglobin 30.9 pg (27.0-33.0); Mean Corpuscular Volume 95.1 fL (80.0-98.0); Mean Platelet Volume 11.3 fL (9.4-12.4); Monocytes Absolute Auto 0.5 X10*3/uL (0.1-1.2); Monocytes Percent Auto 15.8 % (2-11); Neutrophils Absolute Auto 1.6 x10*3/uL (2.0-8.3); Neutrophils Percent Auto 50.4 % (45-73); Red Blood Count 3.46 X10*6/uL (4.60-5.80); Red Cell Distribution Width 15.6 % (11.0-16.0); White Blood Count 3.2 X10*3/uL (4.8-10.8)
[2024-05-01 21:50] LABS: Platelet Count 52 X10*3/uL (160-400)
[2024-05-01 22:02] LABS: Alanine Aminotransferase 10 U/L (0-40); Albumin Level 3.7 g/dL (3.5-5.0); Alkaline Phosphatase 155 U/L (39-117); Anion Gap 13 (12-20); Aspartate Amino Transferase 45 U/L (5-37); Bilirubin Total 0.5 mg/dL (0.0-1.0); Blood Urea Nitrogen 14 mg/dL (9-16); Calcium 9.2 mg/dL (8.4-10.2); Carbon Dioxide 23 mmol/L (22-29); Chloride 114 mmol/L (96-108); Creatinine Clr Calc Pharmacy 59.6; Estimated Glomerular Filt Rate > 60; Ethanol 422 mg/dL; Glucose Random 108 mg/dL (60-115); Potassium 4.1 mmol/L (3.3-5.1); Sodium 146 mmol/L (135-145); Total Protein 8.9 g/dL (6.5-8.0)
[2024-05-02 00:30] VITALS: BP 102/54; PULSE 82; RESP 16; O2SAT 93
--- NOTE | 2024-05-02 03:57 | PC.NURSE ---
pt is arousable to name, resting comfortably in stretcher resp even and unlabored. ciwa 0. pt is calm/cooperative, axox4.
[2024-05-02 05:08] VITALS: BP 99/60; PULSE 86; RESP 18; TEMP 36.4; O2SAT 94
[2024-05-02 09:12] VITALS: BP 108/57; PULSE 80; RESP 16; TEMP 37.1; O2SAT 95
--- NOTE | 2024-05-02 09:21 | PC.NURSE ---
skin wpd, continues to sleep, vss,
[2024-05-02 09:53] VITALS: BP 108/57; PULSE 80; RESP 16; TEMP 37.1; O2SAT 95
== END 2024-05-02 09:54 | disposition home or self-care (01) ==
PROVIDERS: Nurse Practitioner Family; Emergency Provider Internal Medicine
DX: F10.920 Alcohol use, unspecified with intoxication, uncomplicated (principal); Y90.8 Blood alcohol level of 240 mg/100 ml or more; Z79.899 Other long term (current) drug therapy; Z51.81 Encounter for therapeutic drug level monitoring
CPT/HCPCS: 36415; 80053; 80307; 85025; 99284

== ENCOUNTER 2024-05-02 16:25 | Inpatient (IN) | payer MEDICAID, SELFPAY ==
[2024-05-02] VITALS (12 sets, daily range): BP systolic 98–129; BP diastolic 52–80; PULSE 69–83; RESP 15–20; TEMP 36.6–36.9; O2SAT 91–99; BMI 19.4
--- NOTE | ~2024-05-02 | CT_ITS ---
EXAMINATION: CT ANGIOGRAM OF THE CHEST WITH AND WITHOUT CONTRAST (CT PULMONARY ANGIOGRAM FOR PE) CLINICAL INFORMATION: Reason for Exam hypoxia COMPARISON: Chest CT 08/07/2023 TECHNIQUE: Prior to contrast administration, noncontrast localization images were obtained. Subsequently, multidetector volumetric imaging was performed from the thoracic inlet to below the diaphragms following the administration of 65 mL Omnipaque 350 intravenous contrast. No contrast reaction reported Sagittal, coronal, and MIP oblique sagittal reformatted images were obtained on the CT workstation, uploaded to PACS, and reviewed. This CT examination was performed using dose optimization techniques as appropriate, variously including the following: *Automated exposure control *Adjustment of mA and/or kV according to patient size (this includes techniques or standardized protocols for targeted exams where dose is matched to indication/reason for exam; i.e. extremities or head) *Use of iterative reconstruction technique Total exam dose-length product 275 mGy-cm FINDINGS: QUALITY OF STUDY/CONTRAST BOLUS: Suboptimal. Image quality is technically degraded by motion artifact. PULMONARY ARTERIES: No central pulmonary embolus. THORACIC AORTA: No aneurysm. LUNG: No suspicious pulmonary nodule. Patchy groundglass opacities in the left lower lobe. Central airways are patent. PLEURA: No pleural effusion or pneumothorax. MEDIASTINUM: Heart is enlarged. No pericardial effusion. No hilar or mediastinal lymphadenopathy. No evidence of septal bowing or right heart strain. CORONARY ARTERY CALCIFICATION: None visualized on this study. CHEST WALL/AXILLA: No axillary or internal mammary lymphadenopathy. Gynecomastia. OSSEOUS STRUCTURES: Chronic severe compression fracture of T8 without retropulsion. Old healed sternal fracture. UPPER ABDOMEN: Moderate hiatal hernia. Hepatic steatosis. Gastric varices. Nodular thickening of the left adrenal gland. No reflux of contrast into the hepatic veins to suggest elevated right heart pressures. CT/CT angio chest PE protocol IMPRESSION: Technically limited study. No central pulmonary embolus. Patchy groundglass airspace disease in the left lower lobe may represent an acute infectious or inflammatory process. Hepatic steatosis. Gastric varices. Left adrenal hyperplasia. VTE: indeterminate
--- NOTE | ~2024-05-02 | XR_ITS ---
EXAMINATION: XR CHEST CLINICAL INFORMATION: Hypoxia COMPARISON: Chest x-ray April 29, 2024 TECHNIQUE: 2 views of the chest were obtained. FINDINGS: Persistent mild chronic increased lung markings. No acute airspace disease. No pleural effusion or pneumothorax. Heart size is normal. Cardiac mediastinal contours normal. No pulmonary vascular congestion XR/XR chest 2V IMPRESSION: No acute abnormality of chest.
--- NOTE | 2024-05-02 17:02 | ECG_ITS ---
Test Reason : SOB Blood Pressure : / mmHG Vent. Rate : 079 BPM Atrial Rate : 079 BPM P-R Int : 158 ms QRS Dur : 094 ms QT Int : 394 ms P-R-T Axes : 050 024 023 degrees QTc Int : 451 ms Normal sinus rhythm Normal ECG When compared with ECG of 29-APR-2024 21:21, Premature atrial complexes are no longer Present Referred By: Vanessa Lopez Electronically Signed By:Brayan Negron
--- NOTE | 2024-05-02 17:31 | ED.GENADULT ---
HPI - General Adult General Chief complaint: ETOH/Substance Use Stated complaint: ETOH Time Seen by Provider: 05/02/24 16:36 Source: patient and EMS Mode of arrival: EMS Limitations: no limitations History of Present Illness HPI narrative: Patient is a 4-year-old male who presents to the emergency department via EMS after bystanders called as he was acutely intoxicated outdoors. He was discharged from this emergency department earlier this morning after he was deemed clinically sober and declined interest in detox. He admits to continued drinking of beer and vodka, and expresses no interest in detox at this time. He continues to report pain to his left ankle which is chronic in nature. He denies any recent falls or injury. He offers no additional physical complaints at this time Related Data Previous Rx's ?Medication ?Instructions ?Recorded acetaminophen 325 mg capsule 325 mg PO Q4H PRN pain #30 caps 03/13/24 (Tylenol) Allergies Allergy/AdvReac Type Severity Reaction Status Date / Time No Known Allergies Allergy Verified 05/02/24 16:36 [No Known Allergies*] Review of Systems Review of Systems: Yes all other systems are reviewed and are negative [facility] Past Medical History Attestation statement: The following information was validated with the patient. Source: old records reviewed Medical History Thrombocytopenia Alcohol withdrawal syndrome Cirrhosis Malnutrition CHF (congestive heart failure) Anemia Aspiration pneumonia Pneumonia Hypomagnesemia Thrombocytopenia Alcoholic liver disease Acute on chronic anemia CHF (congestive heart failure) Anemia Alcohol abuse Surgical History No history of previous surgery Social History Social History Household Members: None Household Members Other:: pt homeless Housing: Homeless Housing Other:: homeless Do you presently have visiting nurse or other home services: No Unable to assess alcohol history related to: Refusing to respond Alcohol intake: current Alcohol intake frequency: 3 or more drinks per day Alcohol type: beer and hard liquor Comment: 1 assist to bathroom Patient Tobacco Use Status: Former Tobacco user Tobacco use type: Cigarette Second Hand Smoke Exposure: No Use of substances other than those prescribed or required for medical reasons: No Advance Directives: Yes Advance Directives on File: Yes Advance Directives Date on File: 07/13/23 Nutrition Risks: On aspiration precautions service: No Physical Exam ED Vital Signs: Vital Signs - 24 hr 05/02/24 16:36 05/02/24 18:45 05/02/24 19:09 Temperature 98.1 F 98 F 98.2 F Pulse Rate 83 72 75 Respiratory Rate 16 16 20 Blood Pressure 114/62 112/64 100/53 L Pulse Oximetry 91 L 96 99 Oxygen Delivery Method Room Air Nasal Cannula Nasal Cannula Oxygen Flow Rate 2 2 05/02/24 19:47 05/02/24 20:18 Temperature 98.5 F 98.3 F Pulse Rate 73 72 Respiratory Rate 16 16 Blood Pressure 118/61 102/66 Pulse Oximetry 95 98 Oxygen Delivery Method Nasal Cannula Nasal Cannula Oxygen Flow Rate 2 2 BMI result Body Mass Index 19.4 Appearance: Alert.?Oriented to person, place and time. No acute distress.?Normal affect. Acutely intoxicated Eyes: Pupils equal, round and reactive to light.? ENT: Pharynx normal.?? Neck: Normal inspection.? Neck supple.?? CVS: Heart sounds normal. Normal heart rate and rhythm.? Pulses normal.?? Respiratory: No respiratory distress.? Lung sounds clear with no rhonchi to bilateral lower lobes Abdomen: Soft and non-tender. Normoactive bowel sounds. No pulsatile mass.?? Skin: Skin warm and dry.? Normal skin color.? Normal skin turgor.?? Extremities: Nonpitting edema to left ankle and foot.? No calf ttp? Neuro: Moves all extremities spontaneously. Sensation intact bilaterally. CN II-XII intact. No focal neuro deficits. Ambulates with normal steady gait. Course Reevaluation(s) Reevaluation #1: Chronic leukopenia, normocytic anemia that does not meet transfusion criteria, chronic thrombocytopenia; consistent with baseline. Electrolytes overall within normal range, no RAVI. LFTs consistent with baseline. High sensitive troponin below detectable limits. Hypoxia unlikely secondary to ACS. BNP within normal range, hypoxia likely secondary to acute CHF, does not clinically appear volume overloaded. Ethanol level 415. Viral panel negative. Elevated D-dimer. CXR does not reveal acute pathology, elevated D-dimer, will obtain CTA of the chest for further evaluation. Reevaluation #2: At this time infection is suspected, blood cultures lactic acid to be obtained, will cover with Zosyn for possible aspiration pneumonia with ground-glass opacity in the left lower lobe. Spoke with hospitalist, Dr. Hogan, who accepts patient for admission given acute hypoxic respiratory failure in the setting of pneumonia. Time: 20:32 Medications Administered Generic Name Dose Route Start Last Admin Trade Name Freq PRN Reason Stop Dose Admin Ampicillin Sodium/Sulbactam 100 mls @ 200 mls/hr 05/02/24 23:00 05/03/24 00:14 Sodium 3 gm/ Sodium Chloride IV 200 mls/hr Q6H JOSE MANUEL Administration Thiamine HCl 100 mg/ Sodium 101 mls @ 202 mls/hr 05/02/24 21:10 05/02/24 23:46 Chloride IV Infused DAILY JOSE MANUEL Infusion Sodium Chloride 3 ml 05/03/24 00:00 05/03/24 00:15 0.9 % Sodium Chloride Flush 3 Ml Syringe IVFLUSH Not Given QSHIFT JOSE MANUEL Discontinued Medications Generic Name Dose Route Start Last Admin Trade Name Freq PRN Reason Stop Dose Admin Sodium Chloride 1,000 mls @ 999 mls/hr 05/02/24 19:15 05/02/24 22:48 Ns IV 05/02/24 20:15 Infused .Q1H1M JOSE MANUEL Infusion Piperacillin Sod/Tazobactam 100 mls @ 200 mls/hr 05/02/24 20:32 05/02/24 22:53 Sod 4.5 gm/ Sodium Chloride IV 05/02/24 21:01 Infused ONCE ONE Infusion Iohexol 100 ml 05/02/24 19:40 05/02/24 19:40 Iohexol 350 Mg/Ml 100 Ml Infus..Btl IV 05/02/24 19:41 65 ml ONCE ONE Administration Phenobarbital Sodium 217.1 mg 05/02/24 21:30 05/02/24 22:49 Phenobarbital Sodium 130 Mg/Ml Im Once IM 05/02/24 21:31 217.1 mg ONCE ONE Administration Protocol Medical Decision Making Medical Decision Making MDM Narrative: Patient is a 54-year-old male with past medical history of alcohol use disorder, thrombocytopenia, cirrhosis, CHF, anemia, aspiration pneumonia, presenting to emergency department for evaluation, EMS was called by a bystander as he was found to be acutely intoxicated outside. He is well known to this emergency department and has had multiple similar visits over the past months, declining interest in detox and ultimately is discharged once he is clinically sober. During my evaluation when speaking with patient, his O2 saturation was noted to drop as low as 85% on room air while awake and speaking, it does increase to the low 90s. When asked, he states he has been sneezing lately, and admits to a dry cough. He was placed on 2 L via nasal cannula with improvement in O2 saturation to mid/high 90s. Lung sounds are clear bilaterally. Will obtain CBC to evaluate for leukocytosis/ anemia, CMP and lipase to evaluate for abnormal electrolytes /abnormal renal function/ abnormal hepatic/biliary function, EKG and troponin to evaluate for ischemia/ACS. Chest x-ray to evaluate for consolidation/ infiltrate/ mass/ pulmonary congestion and Urinalysis. Differential Diagnosis Differential Diagnoses: The differential diagnosis associated with the presentation includes (See narrative above) Admission/Observation Consideration of admission/observation: Escalation of care including admission/observation considered (See course narrative) Consult Healthcare Provider Management of the patient was discussed with: Hospitalist Lab Data MDM Lab Attestation statement: I reviewed the patient's lab results. (See course narrative) 05/02/24 17:40 05/02/24 17:40 Labs: Lab Results 05/02/24 05/02/24 05/02/24 Range/Units 17:40 18:00 21:00 WBC 3.4 L (4.8-10.8) X10*3/uL RBC 3.37 L (4.60-5.80) X10*6/uL Hgb 10.4 L (14.0-18.0) g/dl Hct 31.8 L (42.0-52.0) % MCV 94.4 (80.0-98.0) fL MCH 30.9 (27.0-33.0) pg MCHC 32.7 (31.0-36.0) g/dl RDW 15.5 (11.0-16.0) % Plt Count 51 L (160-400) X10*3/uL MPV 10.9 (9.4-12.4) fL Immature Gran % (Auto) 0.3 (0.0-0.4) % Neut % (Auto) 48.7 (45-73) % Lymph % (Auto) 32.8 (20-40) % Coffey % (Auto) 14.3 H (2-11) % Eos % (Auto) 2.4 (0-4) % Baso % (Auto) 1.5 (0-2) % Lymph # (Auto) 1.1 L (1.2-4.9) X10*3/uL Coffey # (Auto) 0.5 (0.1-1.2) X10*3/uL Eos # (Auto) 0.1 (0.0-0.4) X10*3/uL Baso # (Auto) 0.1 (0.0-0.2) X10*3/uL Abs Immat Gran (auto) 0.01 (0.00-0.03) X10*3/uL Absolute Neuts (auto) 1.6 L (2.0-8.3) x10*3/uL Absolute Nucleated RBC 0.000 (0.0-0.012) X10*3/uL Nucleated RBC % (auto) 0.0 (0.0-0.2) /100WBC PT 15.0 H (11.1-13.3) SEC INR 1.2 H (0.9-1.1) D-Dimer High Sensitivty 672 NG/ML Sodium 144 (135-145) mmol/L Potassium 3.8 (3.3-5.1) mmol/L Chloride 110 H (96-108) mmol/L Carbon Dioxide 23 (22-29) mmol/L Anion Gap 15 (12-20) BUN 11 (9-16) mg/dL Creatinine 0.77 (0.5-1.4) mg/dL Estim Creat Clear Calc 83.4 Estimated GFR > 60 Random Glucose 89 (60-115) mg/dL Lactic Acid 1.5 (0.5-2.0) mmol/L Calcium 8.9 (8.4-10.2) mg/dL Magnesium 2.1 (1.6-2.6) mg/dL Total Bilirubin 0.6 (0.0-1.0) mg/dL AST 44 H (5-37) U/L ALT 10 (0-40) U/L Alkaline Phosphatase 138 H (39-117) U/L Troponin I High Sens < 2.7 D (<3.5-35.0) ng/L B-Natriuretic Peptide 60 (<100) pg/mL Total Protein 8.8 H (6.5-8.0) g/dL Albumin 3.7 (3.5-5.0) g/dL Urine Opiates Screen Not Detected (Not Detect) Ur Buprenorphine Scrn Not Detected (Not Detect) ng/mL Ur Oxycodone Screen Not Detected (Not Detect) ng/mL Urine Methadone Screen Not Detected (Not Detect) ng/mL Urine Fentanyl Screen Not Detected (Not Detect) Ur Barbiturates Screen Not Detected (Not Detect) Ur Phencyclidine Scrn Not Detected (Not Detect) Ur Amphetamines Screen Not Detected (Not Detect) U Benzodiazepines Scrn Not Detected (Not Detect) Urine Cocaine Screen Not Detected (Not Detect) U Marijuana (THC) Screen Not Detected (Not Detect) Ethyl Alcohol 415 H* mg/dL Influenza Type A (PCR) NEGATIVE (Negative) Influenza Type B (PCR) NEGATIVE (Negative) RSV RNA Qual (PCR) NEGATIVE (Negative) SARS-CoV-2 RNA (RT-PCR) NEGATIVE (Negative) Independent Interpretation I performed an independent interpretation of an: Plain X-Ray (No acute pathology) Radiology Impression Discussion of test interpretation with radiology: I have reviewed the radiologist's reading. Radiologist Impression: XR/XR chest 2V IMPRESSION: No acute abnormality of chest. CT/CT angio chest PE protocol IMPRESSION: Technically limited study. No central pulmonary embolus. Patchy groundglass airspace disease in the left lower lobe may represent an acute infectious or inflammatory process. Hepatic steatosis. Gastric varices. Left adrenal hyperplasia. VTE: indeterminate Social Determinants Patient?s care significantly limited by Social Determinants of Health including: Alcoholism and drug addiction in family Discharge Plan Discharge Clinical Impression: Left lower lobe pneumonia, Acute hypoxemic respiratory failure Alcohol intoxication Qualifiers: Complication of substance-induced condition: uncomplicated Qualified Code(s): F10.920 - Alcohol use, unspecified with intoxication, uncomplicated Patient Disposition: Admitted As Inpatient Interventions: Admission Worksheet (ED) Last Done: 05/03/24 00:04
[2024-05-02 17:45] LABS: MANUAL DIFF FLAG NO
[2024-05-02 17:48] LABS: Basophils Absolute Auto 0.1 X10*3/uL (0.0-0.2); Basophils Percent Auto 1.5 % (0-2); Eosinophils Absolute Auto 0.1 X10*3/uL (0.0-0.4); Eosinophils Percent Auto 2.4 % (0-4); Hematocrit 31.8 % (42.0-52.0); Hemoglobin 10.4 g/dl (14.0-18.0); Imm Gran Abs Auto 0.01 X10*3/uL (0.00-0.03); Imm Gran Pct Auto 0.3 % (0.0-0.4); Lymphocytes Absolute Auto 1.1 X10*3/uL (1.2-4.9); Lymphocytes Percent Auto 32.8 % (20-40); Mean Corpuscular HGB Conc 32.7 g/dl (31.0-36.0); Mean Corpuscular Hemoglobin 30.9 pg (27.0-33.0); Mean Corpuscular Volume 94.4 fL (80.0-98.0); Mean Platelet Volume 10.9 fL (9.4-12.4); Monocytes Absolute Auto 0.5 X10*3/uL (0.1-1.2); Monocytes Percent Auto 14.3 % (2-11); Neutrophils Absolute Auto 1.6 x10*3/uL (2.0-8.3); Neutrophils Percent Auto 48.7 % (45-73); Red Blood Count 3.37 X10*6/uL (4.60-5.80); Red Cell Distribution Width 15.5 % (11.0-16.0); White Blood Count 3.4 X10*3/uL (4.8-10.8)
[2024-05-02 17:49] LABS: Platelet Count 51 X10*3/uL (160-400)
[2024-05-02 17:52] LABS: INTERNATIONAL NORM RATIO 1.2 (0.9-1.1)
[2024-05-02 18:04] LABS: Alanine Aminotransferase 10 U/L (0-40); Albumin Level 3.7 g/dL (3.5-5.0); Alkaline Phosphatase 138 U/L (39-117); Anion Gap 15 (12-20); Aspartate Amino Transferase 44 U/L (5-37); Bilirubin Total 0.6 mg/dL (0.0-1.0); Blood Urea Nitrogen 11 mg/dL (9-16); Calcium 8.9 mg/dL (8.4-10.2); Carbon Dioxide 23 mmol/L (22-29); Chloride 110 mmol/L (96-108); Creatinine Clr Calc Pharmacy 83.4; Estimated Glomerular Filt Rate > 60; Ethanol 415 mg/dL; Glucose Random 89 mg/dL (60-115); Magnesium 2.1 mg/dL (1.6-2.6); Potassium 3.8 mmol/L (3.3-5.1); Sodium 144 mmol/L (135-145); Total Protein 8.8 g/dL (6.5-8.0)
[2024-05-02 18:11] LABS: B Type Natriuretic Peptide 60 pg/mL (<100); Troponin-I High Sensitivity < 2.7 ng/L (<3.5-35.0)
[2024-05-02 18:24] LABS: Influenza A PCR NEGATIVE (Negative); Influenza B PCR NEGATIVE (Negative); Resp Syncy Virus RNA Qual PCR NEGATIVE (Negative); SARS COV2 PCR INHOUSE NEGATIVE (Negative)
[2024-05-02 18:31] LABS: Amphetamine Screen Urine Not Detected (Not Detect); Barbiturates, Urine Not Detected (Not Detect); Benzodiazepines Screen Urine Not Detected (Not Detect); Buprenorphine Scr Not Detected (Not Detect); Cannabinoid Screen Urine Not Detected (Not Detect); Cocaine Screen Urine Not Detected (Not Detect); Fentanyl, urine Not Detected (Not Detect); Methadone Screen, Urine Not Detected (Not Detect); Opiate Screen Urine Not Detected (Not Detect); Oxycodone Screen Urine Not Detected (Not Detect); Phencyclidine Screen Urine Not Detected (Not Detect)
--- NOTE | 2024-05-02 18:33 | PC.NURSE ---
ARRIVES AFTER BYSTANDER CALLED 911 FOR INTOXICATION. PT WELL KNOWN TO FACILITY. NO SOB, NO COUGH, THOUGH MILDLY HYPOXIC 85-91% ON RA. PLACED ON 2L NC BY PROVIDER.
[2024-05-02 19:07] LABS: D Dimer High Sensitivity 672 NG/ML
[2024-05-02] MEDS: 0.9 % Sodium Chloride 1,000 ML 999 ML IV (19:22)
--- NOTE | 2024-05-02 19:22 | PC.NURSE ---
#18 placed in RFA. pt denies cp, sob. continues on 2l supp o2, ls clear throughout. aware of plan for care. ivf running.
[2024-05-02] MEDS: iohexoL 350 MG/ML 100 ML INFUS..BTL IV (19:40)
[2024-05-02] MEDS: Piperacillin Sodium/Tazobactam 4.5 GM in 0.9 % Sodium Chloride 100 ML IV (21:00)
[2024-05-02 21:20] LABS: Lactic Acid 1.5 mmol/L (0.5-2.0)
--- NOTE | 2024-05-02 21:25 | PM.IMHP ---
History of Present Illness Date of Service: 05/02/24 <MADISON Alvarenga - Last Filed: 05/02/24 22:15> Attending physician on admission: Mercedes Hogan <MADISON Alvarenga - Last Filed: 05/02/24 22:15> Chief Complaint: Alcohol intoxication <MADISON Alvarenga - Last Filed: 05/02/24 22:15> Pt is a 54-year-old male with a PMH significant for?alcoholic cirrhosis, esophageal varices, alcohol use disorder, and HFpEF who presents to the ED via EMS after bystanders called the paramedics as patient was seen to be acutely intoxicated. Patient is well-known to the hospital and especially the ED, where this is the patient's 8th presentation to the ED this month alone, often for seeking mcc and/or acute intoxication. Patient is homeless and continues to drink beer and vodka with no interest in detox. Was just discharged from the emergency department earlier this morning after he was deemed clinically sober. Pt is a poor historian who does not know how or why he came to the hospital. States he was just drinking my beers when the next thing I know I'm in the hospital. Complains of chronic left lower leg edema and left ankle pain. Denies any chest pain/pressure, palpitations. No shortness a breath or difficulty breathing. Denies cough. Denies nausea, vomiting. No abdominal pain In the ED pt had soft BP as low as 100/53 and satting as low as 85% on RA. Labs were significant for pancytopenic consistent with baseline, and transaminitis consistent with baseline. No significant electrolyte abnormalities. Renal function baseline. Troponin negative. Alcohol level 415 at 17:40. Tested negative for flu, COVID, RSV. CXR showed no acute abnormality of the chest. CTA of the chest negative for central pulmonary embolus, but did find patchy ground-glass disease in left lower lobe that may reflect acute infectious or inflammatory process. Also found hepatic steatosis and gastric varices in left adrenal hyperplasia. EKG demonstrated normal sinus rhythm without evidence of significant ST elevations or depressions. Pt was treated with IVF and Zosyn. Pt will be admitted to the hospital for treatment and further evaluation of acute hypoxic respiratory failure in the setting of likely aspiration pneumonia secondary to alcohol intoxication. <MADISON Alvarenga - Last Filed: 05/02/24 22:15> Review of Systems Review of Systems: Chronic left leg edema and pain Patient otherwise has no acute medical complaints <MADISON Alvarenga - Last Filed: 05/02/24 22:15> [facility] Medical History: Medical History Thrombocytopenia Alcohol withdrawal syndrome Cirrhosis Malnutrition CHF (congestive heart failure) Anemia Aspiration pneumonia Pneumonia Hypomagnesemia Thrombocytopenia Alcoholic liver disease Acute on chronic anemia CHF (congestive heart failure) Anemia Alcohol abuse <MADISON Alvarenga - Last Filed: 05/02/24 22:15> Surgical History: Surgical History No history of previous surgery <MADISON Alvarenga - Last Filed: 05/02/24 22:15> Social History: Social History Household Members: None Household Members Other:: pt homeless Housing: Homeless Housing Other:: homeless Do you presently have visiting nurse or other home services: No Unable to assess alcohol history related to: Refusing to respond Alcohol intake: current Alcohol intake frequency: 3 or more drinks per day Alcohol type: beer and hard liquor Comment: 1 assist to bathroom Patient Tobacco Use Status: Former Tobacco user Tobacco use type: Cigarette Second Hand Smoke Exposure: No Use of substances other than those prescribed or required for medical reasons: No Advance Directives: Yes Advance Directives on File: Yes Advance Directives Date on File: 07/13/23 Nutrition Risks: On aspiration precautions service: No <MADISON Alvarenga - Last Filed: 05/02/24 22:15> Meds Allergies/Adverse reactions: Allergies Allergy/AdvReac Type Severity Reaction Status Date / Time No Known Allergies Allergy Verified 05/02/24 16:36 [No Known Allergies*] <MADISON Alvarenga - Last Filed: 05/02/24 22:15> Active Medications: Current Medications Acetaminophen (Acetaminophen 325 Mg Tablet) 650 mg PO Q6H PRN PRN Reason: Pain, Mild (Pain Scale 1-3), fever or headache Calcium Carbonate (Calcium Carbonate 750 Mg Tab.Chew) 750 mg PO Q4H PRN PRN Reason: Heartburn Ampicillin Sodium/Sulbactam (Sodium 3 gm/ Sodium Chloride) 100 mls @ 200 mls/hr IV Q6H JOSE MANUEL Thiamine HCl 100 mg/ Sodium (Chloride) 101 mls @ 202 mls/hr IV DAILY JOSE MANUEL Magnesium Hydroxide (Milk Of Magnesia 30 Ml Oral.Susp) 30 ml PO DAILY PRN PRN Reason: Constipation Melatonin (Melatonin 3 Mg Tablet) 6 mg PO BEDTIME PRN PRN Reason: Insomnia Pharmacy Consult (Consult Rx Etoh Phenob Im/Po) 1 each MISCELLANE ONCE PRN; Protocol PRN Reason: Consult order Phenobarbital (Phenobarbital 15 Mg Tablet) 45 mg PO BID JOSE MANUEL; Protocol Stop: 05/04/24 21:01 Phenobarbital (Phenobarbital 15 Mg Tablet) 15 mg PO BID JOSE MANUEL; Protocol Stop: 05/06/24 21:01 Phenobarbital (Phenobarbital 15 Mg Tablet) 15 mg PO DAILY JOSE MANUEL; Protocol Stop: 05/08/24 09:01 Phenobarbital Sodium (Phenobarbital Sodium 130 Mg/Ml Im Once) 217.1 mg IM ONCE ONE; Protocol Stop: 05/02/24 21:31 Phenobarbital Sodium (Phenobarbital Sodium 130 Mg/Ml Vial Im Q3hx2) 163.8 mg IM Q3H JOSE MANUEL; Protocol Stop: 05/03/24 03:31 Sodium Chloride (0.9 % Sodium Chloride Flush 3 Ml Syringe) 3 ml IVFLUSH QSHIFT [facility] <MADISON Alvarenga - Last Filed: 05/02/24 22:15> Physical Exam Vital Signs and Narrative: Vital Signs: Last Vital Signs Temp 98.2 F 05/02/24 19:09 Pulse 75 05/02/24 19:09 Resp 20 05/02/24 19:09 BP 100/53 L 05/02/24 19:09 Pulse Ox 99 05/02/24 19:09 O2 Del Method Nasal Cannula 05/02/24 19:09 O2 Flow Rate 2 05/02/24 19:09 BMI result Body Mass Index 19.4 <MADISON Alvarenga - Last Filed: 05/02/24 22:15> Constitutional: Alert, disheveled, unkempt. In no acute distress. Mental Status: Oriented to person, place and time. Eyes: Pupils are equal, round, and reactive to light. Ear, Nose, and Throat: Oropharynx clear, mucous membranes moist. Ears and nose without deformities. Trachea midline. Respiratory: Diffuse rhonchi in lower lobes bilaterally.. Cardiovascular: S1, S2 regular. No murmurs, rubs, or gallops. Gastrointestinal: Abdomen soft, non-tender, non-distended. Normal bowel sounds. Neurologic: Cranial nerves II-XII are grossly intact bilaterally. No focal neurological deficits. Moves all extremities spontaneously. Skin: Warm, dry. Extremities: Trace bilateral pitting lower leg edema edema. <MADISON Alvarenga - Last Filed: 05/02/24 22:15> Results Labs CBC and Chem 7: 05/02/24 17:40 05/02/24 17:40 <MADISON Alvarenga - Last Filed: 05/02/24 22:15> Labs: Laboratory Results - last 24 hr 05/02/24 05/02/24 05/02/24 17:40 18:00 21:00 MCV 94.4 MCH 30.9 MCHC 32.7 RDW 15.5 Plt Count 51 L MPV 10.9 Immature Gran % (Auto) 0.3 Neut % (Auto) 48.7 Lymph % (Auto) 32.8 [place] % (Auto) 14.3 H Eos % (Auto) 2.4 Baso % (Auto) 1.5 Lymph # (Auto) 1.1 L [place] # (Auto) 0.5 Eos # (Auto) 0.1 Baso # (Auto) 0.1 Abs Immat Gran (auto) 0.01 Absolute Neuts (auto) 1.6 L Absolute Nucleated RBC 0.000 Nucleated RBC % (auto) 0.0 PT 15.0 H INR 1.2 H D-Dimer High Sensitivty 672 Anion Gap 15 Estim Creat Clear Calc 83.4 Estimated GFR > 60 Random Glucose 89 Lactic Acid 1.5 Calcium 8.9 Magnesium 2.1 Total Bilirubin 0.6 AST 44 H ALT 10 Alkaline Phosphatase 138 H Troponin I High Sens < 2.7 D B-Natriuretic Peptide 60 Total Protein 8.8 H Albumin 3.7 Urine Opiates Screen Not Detected Ur Buprenorphine Scrn Not Detected Ur Oxycodone Screen Not Detected Urine Methadone Screen Not Detected Urine Fentanyl Screen Not Detected Ur Barbiturates Screen Not Detected Ur Phencyclidine Scrn Not Detected Ur Amphetamines Screen Not Detected U Benzodiazepines Scrn Not Detected Urine Cocaine Screen Not Detected U Marijuana (THC) Screen Not Detected Ethyl Alcohol 415 H* Influenza Type A (PCR) NEGATIVE Influenza Type B (PCR) NEGATIVE RSV RNA Qual (PCR) NEGATIVE SARS-CoV-2 RNA (RT-PCR) NEGATIVE <MADISON Alvarenga - Last Filed: 05/02/24 22:15> Imaging Radiologist's Impressions: Impressions Chest X-Ray 05/02/24 17:33 IMPRESSION: No acute abnormality of chest. Chest CTA 05/02/24 19:48 IMPRESSION: Technically limited study. No central pulmonary embolus. Patchy groundglass airspace disease in the left lower lobe may represent an acute infectious or inflammatory process. Hepatic steatosis. Gastric varices. Left adrenal hyperplasia. VTE: indeterminate <MADISON Alvarenga - Last Filed: 05/02/24 22:15> Assessment and Plan (1) Alcohol intoxication: Qualifiers: Complication of substance-induced condition: uncomplicated Qualified Code(s): F10.920 - Alcohol use, unspecified with intoxication, uncomplicated <MADISON Alvarenga - Last Filed: 05/02/24 22:15> Status: Acute <MADISON Alvarenga - Last Filed: 05/02/24 22:15> (2) Aspiration pneumonia: Status: Resolved <MADISON Alvarenga - Last Filed: 05/02/24 22:15> Pt is a 54-year-old male with a PMH significant for?alcoholic cirrhosis, esophageal varices, alcohol use disorder, and HFpEF who presents to the ED via EMS after bystanders called the paramedics as patient was seen to be acutely intoxicated. Pt will be admitted to the hospital for treatment and further evaluation of acute hypoxic respiratory failure in the setting of likely aspiration pneumonia secondary to alcohol intoxication. Acute hypoxic respiratory failure in the setting of likely aspiration Patient desatting as low as 85% on RA during interview and exam in the ED CTA of chest found patchy ground-glass airspace disease in left lower lobe Likely secondary to aspiration from acute alcohol intoxication Does not meet sepsis criteria: No fever, tachycardia, tachypnea; leukopenia chronic, at baseline; lactic acid WNL Patient given IVF and started on broad-spectrum antibiotics in the ED Will treat with Unasyn, started 05/02/2024 Titrate supplemental O2 >92, wean as tolerated Monitor respiratory status Alcohol use disorder Alcohol level 415 at 17:40 Patient is still acutely intoxicated, though at high risk for alcohol withdrawal Will start on phenobarb protocol Daily multivitamin, folic acid, Thiamine Famotidine 20 mg p.o. Follow lytes, Mag, BMP CIWA scale Addiction medicine consult Chronic left leg and ankle pain Venous duplex 5 days prior on 04/27 negative for DVT in left lower extremity Left ankle x-ray redemonstrated probable stress fracture of distal tibia metaphysis Analgesics for pain management Should follow up outpatient with orthopedics Pancytopenia In the setting of alcohol use disorder and alcoholic cirrhosis Around baseline Germain CBC HFpEF Not in acute exacerbation Continue beta-antoinette Full Code Attending:?Dr. Hogan DVT Prophylaxis: Pneumatic boots due to thrombocytopenia. Pt will require a hospitalization of at least two nights for treatment of?acute hypoxic respiratory failure secondary to likely aspiration pneumonia in the setting of alcohol intoxication. Patient require IV antibiotics, supplemental oxygen, close monitoring of labs and electrolytes and respiratory status, as well as administration of phenobarb protocol for impending alcohol withdrawal. <MADISON Alvarenga - Last Filed: 05/02/24 22:15> Pt is a 54-year-old male with a PMH significant for?alcoholic cirrhosis, esophageal varices, alcohol use disorder, and HFpEF who presents to the ED via EMS after bystanders called the paramedics as patient was seen to be acutely intoxicated. Pt will be admitted to the hospital for treatment and further evaluation of acute hypoxic respiratory failure in the setting of likely aspiration pneumonia secondary to alcohol intoxication. Acute hypoxic respiratory failure in the setting of likely aspiration Patient desatting as low as 85% on RA during interview and exam in the ED CTA of chest found patchy ground-glass airspace disease in left lower lobe Likely secondary to aspiration from acute alcohol intoxication Does not meet sepsis criteria: No fever, tachycardia, tachypnea; leukopenia chronic, at baseline; lactic acid WNL Patient given IVF and started on broad-spectrum antibiotics in the ED Will treat with Unasyn, started 05/02/2024 Titrate supplemental O2 >92, wean as tolerated Monitor respiratory status Alcohol use disorder Alcohol level 415 at 17:40 Patient is still acutely intoxicated, though at high risk for alcohol withdrawal Will start on phenobarb protocol Daily multivitamin, folic acid, Thiamine Famotidine 20 mg p.o. Follow Mag meagan, BMP CIWA scale Addiction medicine consult Chronic left leg and ankle pain Venous duplex 5 days prior on 04/27 negative for DVT in left lower extremity Left ankle x-ray redemonstrated probable stress fracture of distal tibia metaphysis Analgesics for pain management Pancytopenia In the setting of alcohol use disorder and alcoholic cirrhosis Around baseline Germain CBC HFpEF Not in acute exacerbation Continue beta-antoinette Full Code Attending:?Dr. Hogan DVT Prophylaxis: Pneumatic boots due to thrombocytopenia. Pt will require a hospitalization of at least two nights for treatment of?acute hypoxic respiratory failure secondary to likely aspiration pneumonia in the setting of alcohol intoxication. Patient require IV antibiotics, supplemental oxygen, close monitoring of labs and electrolytes and respiratory status, as well as administration of phenobarb protocol for impending alcohol withdrawal. <Mercedes Hogan MD - Last Filed: 05/03/24 00:34> Quality Stroke Does the patient have a stroke diagnosis?: No <MADISON Alvarenga - Last Filed: 05/02/24 22:15> VTE Prior VTE?: No <MADISON Alvarenga - Last Filed: 05/02/24 22:15> VTE Risk Level:: Medical - moderate - high <MADISON Alvarenga - Last Filed: 05/02/24 22:15> VTE Device Contraindication: N/A - Device Ordered <MADISON Alvarenga - Last Filed: 05/02/24 22:15> VTE Drug Contraindication: Treatment Not Indicated <MADISON Alvarenga - Last Filed: 05/02/24 22:15>
--- NOTE | 2024-05-02 21:39 | PHA.MEDREC ---
Pharmacy Consult ? Medication Reconciliation Pharmacy has completed the medication reconciliation. Patient asleep and under blankets. Completed med rec using claim history. Patient historically reports not taking any medications and there are no recent medications on the claim history. Isa Bustillos, EnedinaD
[2024-05-02] MEDS: Thiamine HCL 100 MG in 0.9 % Sodium Chloride 100 ML 202 MG IV (22:49)
[2024-05-02] MEDS: PHENobarbitaL sodium 130 MG/ML IM ONCE 217.1 MG IM (22:49)
[2024-05-03] VITALS (8 sets, daily range): BP systolic 114–159; BP diastolic 56–77; PULSE 72–104; RESP 16–20; TEMP 36.2–37.2; O2SAT 90–97; BMI 21.0
[2024-05-03] MEDS: Ampicillin Sodium/Sulbactam Na 3 GM in 0.9 % Sodium Chloride 100 ML IV ×5 (00:14→23:22)
[2024-05-03] MEDS: PHENobarbitaL sodium 130 MG/ML VIAL IM Q3Hx2 163.8 MG IM ×2 (01:40→04:23)
[2024-05-03 07:26] LABS: Basophils Absolute Auto 0.1 X10*3/uL (0.0-0.2); Eosinophils Absolute Auto 0.1 X10*3/uL (0.0-0.4); Eosinophils Percent Auto 3.2 % (0-4); Hematocrit 30.5 % (42.0-52.0); Hemoglobin 9.7 g/dl (14.0-18.0); Imm Gran Abs Auto 0.01 X10*3/uL (0.00-0.03); Imm Gran Pct Auto 0.4 % (0.0-0.4); Lymphocytes Absolute Auto 0.8 X10*3/uL (1.2-4.9); Lymphocytes Percent Auto 31.7 % (20-40); MANUAL DIFF FLAG SCAN; Mean Corpuscular HGB Conc 31.8 g/dl (31.0-36.0); Mean Corpuscular Hemoglobin 30.4 pg (27.0-33.0); Mean Corpuscular Volume 95.6 fL (80.0-98.0); Mean Platelet Volume 10.7 fL (9.4-12.4); Monocytes Absolute Auto 0.3 X10*3/uL (0.1-1.2); Monocytes Percent Auto 13.3 % (2-11); Neutrophils Absolute Auto 1.2 x10*3/uL (2.0-8.3); Neutrophils Percent Auto 49.4 % (45-73); Red Blood Count 3.19 X10*6/uL (4.60-5.80); Red Cell Distribution Width 15.5 % (11.0-16.0); SCAN SMEAR FLAG 1
[2024-05-03 07:30] LABS: Platelet Count 34 X10*3/uL (160-400); White Blood Count 2.5 X10*3/uL (4.8-10.8)
[2024-05-03 07:43] LABS: Anion Gap 13 (12-20); Blood Urea Nitrogen 9 mg/dL (9-16); Calcium 8.4 mg/dL (8.4-10.2); Carbon Dioxide 23 mmol/L (22-29); Chloride 113 mmol/L (96-108); Creatinine Clr Calc Pharmacy 105.3; Estimated Glomerular Filt Rate > 60; Glucose Random 76 mg/dL (60-115); Potassium 3.7 mmol/L (3.3-5.1); Sodium 145 mmol/L (135-145)
[2024-05-03 08:20] LABS: SLIDE REVIEW VERIFIED
[2024-05-03] MEDS: 0.9 % Sodium Chloride Flush 3 ML SYRINGE IVFLUSH ×3 (09:21→20:24)
[2024-05-03] MEDS: Multivitamin TABLET 1 TAB PO (09:22)
[2024-05-03] MEDS: PHENobarbitaL 15 MG TABLET 45 MG PO ×2 (09:22→20:22)
[2024-05-03] MEDS: Folic Acid 1 MG TABLET PO (09:22)
[2024-05-03] MEDS: Thiamine HCL 100 MG in 0.9 % Sodium Chloride 100 ML 202 MG IV (09:23)
--- NOTE | 2024-05-03 13:30 | MHC.RECOVRN ---
Met with pt in 380 after consult placed to Addiction Medicine for alcohol use. Per ED triage note, etoh, left early this [place] [facility] [place]. bystander called. endorses chronic l knee pain. Upon evaluation, pt admitted for alcohol intoxication and aspiration pneumonia. Pt had been initiated on phenobarbital protocol. Pt sitting in bed, awake, alert, difficult to engage in conversation. Upon introducing self, pt states I don't want to stop drinking. Briefly was able to educate pt on recovery supports if pt ever decides he would like to reduce or abstain. Pt accepting of written resources as well as t/w contact information if questions or concerns arise. Pt denies questions or concerns at this time. Discussed with Namrata Lindo APRN.
--- NOTE | 2024-05-03 14:37 | HO.PM.IMPN ---
Subjective Subjective Date of Service: 05/03/24 Interval History: Seen and examined this morning were pneumonia, alcohol intoxication Patient is sleeping, wakes easily to verbal stimuli. Knows he has in the hospital and has no specific complaints at this time Not tremulous Review of Systems Review of Systems: Yes all other systems are reviewed and are negative Constitutional Constitutional: Denies fever(s) Cardiovascular Cardiovascular: Denies chest pain Physical Exam Vital Signs: Vital Signs: Last Vital Signs Temp 98.1 F 05/03/24 12:53 Pulse 75 05/03/24 07:23 Resp 18 05/03/24 07:23 BP 114/61 05/03/24 07:23 Pulse Ox 92 05/03/24 07:23 O2 Del Method Room Air 05/03/24 07:23 O2 Flow Rate 2 05/03/24 03:19 BMI result Body Mass Index 21.0 Const: General: cooperative, comfortable, alert and awake Orientation/consciousness: oriented to person and oriented to place Resp: Effort & Inspection: normal respiratory effort, able to speak in complete sentences and no respiratory distress Cardio: Rate: regular rate GI: Inspection: No distended Palpation (GI): Soft to palpation Neuro: Other: Grossly nonfocal General: oriented to person and oriented to place Objective Data Active Medications Acetaminophen (Acetaminophen 325 Mg Tablet) 650 mg PO Q6H PRN PRN Reason: Pain, Mild (Pain Scale 1-3), fever or headache Calcium Carbonate (Calcium Carbonate 750 Mg Tab.Chew) 750 mg PO Q4H PRN PRN Reason: Heartburn Folic Acid (Folic Acid 1 Mg Tablet) 1 mg PO DAILY [facility] Last Admin: 05/03/24 09:22 Dose: 1 mg Documented By: WENCESLAO Ampicillin Sodium/Sulbactam (Sodium 3 gm/ Sodium Chloride) 100 mls @ 200 mls/hr IV Q6H [facility] Last Infusion: 05/03/24 11:34 Dose: Infused Documented By: WENCESLAO Thiamine HCl 100 mg/ Sodium (Chloride) 101 mls @ 202 mls/hr IV DAILY [facility] Last Infusion: 05/03/24 10:11 Dose: Infused Documented By: WENCESLAO Magnesium Hydroxide (Milk Of Magnesia 30 Ml Oral.Susp) 30 ml PO DAILY PRN PRN Reason: Constipation Melatonin (Melatonin 3 Mg Tablet) 6 mg PO BEDTIME PRN PRN Reason: Insomnia Multivitamins/Vitamin C (Multivitamin Tablet) 1 tab PO DAILY [facility] Last Admin: 05/03/24 09:22 Dose: 1 tab Documented By: WENCESLAO Pharmacy Consult (Consult Rx Etoh Phenob Im/Po) 1 each MISCELLANE ONCE PRN; Protocol PRN Reason: Consult order Phenobarbital (Phenobarbital 15 Mg Tablet) 45 mg PO BID [facility]; Protocol Stop: 05/04/24 21:01 Last Admin: 05/03/24 09:22 Dose: 45 mg Documented By: WENCESLAO Phenobarbital (Phenobarbital 15 Mg Tablet) 15 mg PO BID [facility]; Protocol Stop: 05/06/24 21:01 Phenobarbital (Phenobarbital 15 Mg Tablet) 15 mg PO DAILY [facility]; Protocol Stop: 05/08/24 09:01 Sodium Chloride (0.9 % Sodium Chloride Flush 3 Ml Syringe) 3 ml IVFLUSH QSGAFT [facility] Last Admin: 05/03/24 09:21 Dose: 3 ml Documented By: WENCESLAO Labs 05/03/24 06:01 05/03/24 06:01 Labs: Laboratory Results - last 24 hr 05/02/24 05/02/24 05/02/24 17:40 18:00 21:00 MCV 94.4 MCH 30.9 MCHC 32.7 RDW 15.5 Plt Count 51 L MPV 10.9 Immature Gran % (Auto) 0.3 Neut % (Auto) 48.7 Lymph % (Auto) 32.8 [place] % (Auto) 14.3 H Eos % (Auto) 2.4 Baso % (Auto) 1.5 Lymph # (Auto) 1.1 L [place] # (Auto) 0.5 Eos # (Auto) 0.1 Baso # (Auto) 0.1 Abs Immat Gran (auto) 0.01 Absolute Neuts (auto) 1.6 L Absolute Nucleated RBC 0.000 Nucleated RBC % (auto) 0.0 Smear Tech's Comments PT 15.0 H INR 1.2 H D-Dimer High Sensitivty 672 Anion Gap 15 Estim Creat Clear Calc 83.4 Estimated GFR > 60 Random Glucose 89 Lactic Acid 1.5 Calcium 8.9 Magnesium 2.1 Total Bilirubin 0.6 AST 44 H ALT 10 Alkaline Phosphatase 138 H Troponin I High Sens < 2.7 D B-Natriuretic Peptide 60 Total Protein 8.8 H Albumin 3.7 Urine Opiates Screen Not Detected Ur Buprenorphine Scrn Not Detected Ur Oxycodone Screen Not Detected Urine Methadone Screen Not Detected Urine Fentanyl Screen Not Detected Ur Barbiturates Screen Not Detected Ur Phencyclidine Scrn Not Detected Ur Amphetamines Screen Not Detected U Benzodiazepines Scrn Not Detected Urine Cocaine Screen Not Detected U Marijuana (THC) Screen Not Detected Ethyl Alcohol 415 H* Influenza Type A (PCR) NEGATIVE Influenza Type B (PCR) NEGATIVE RSV RNA Qual (PCR) NEGATIVE SARS-CoV-2 RNA (RT-PCR) NEGATIVE 05/03/24 06:01 MCV 95.6 MCH 30.4 MCHC 31.8 RDW 15.5 Plt Count 34 L D MPV 10.7 Immature Gran % (Auto) 0.4 Neut % (Auto) 49.4 Lymph % (Auto) 31.7 [place] % (Auto) 13.3 H Eos % (Auto) 3.2 Baso % (Auto) 2.0 Lymph # (Auto) 0.8 L [place] # (Auto) 0.3 Eos # (Auto) 0.1 Baso # (Auto) 0.1 Abs Immat Gran (auto) 0.01 Absolute Neuts (auto) 1.2 L Absolute Nucleated RBC 0.000 Nucleated RBC % (auto) 0.0 Smear Tech's Comments VERIFIED PT INR D-Dimer High Sensitivty Anion Gap 13 Estim Creat Clear Calc 105.3 Estimated GFR > 60 Random Glucose 76 Lactic Acid Calcium 8.4 Magnesium Total Bilirubin AST ALT Alkaline Phosphatase Troponin I High Sens B-Natriuretic Peptide Total Protein Albumin Urine Opiates Screen Ur Buprenorphine Scrn Ur Oxycodone Screen Urine Methadone Screen Urine Fentanyl Screen Ur Barbiturates Screen Ur Phencyclidine Scrn Ur Amphetamines Screen U Benzodiazepines Scrn Urine Cocaine Screen U Marijuana (THC) Screen Ethyl Alcohol Influenza Type A (PCR) Influenza Type B (PCR) RSV RNA Qual (PCR) SARS-CoV-2 RNA (RT-PCR) Assessment and Plan (1) Left lower lobe pneumonia: Status: Acute Plan Pt is a 54-year-old male with a PMH significant for?alcoholic cirrhosis, esophageal varices, alcohol use disorder, and HFpEF who presents to the ED via EMS after bystanders called the paramedics as patient was seen to be acutely intoxicated. Pt will be admitted to the hospital for treatment and further evaluation of acute hypoxic respiratory failure in the setting of likely aspiration pneumonia secondary to alcohol intoxication. Acute hypoxic respiratory failure in the setting of likely aspiration Patient desatting as low as 85% on RA in the ED CTA of chest found patchy ground-glass airspace disease in left lower lobe Likely secondary to aspiration from acute alcohol intoxication Does not meet sepsis criteria: No fever, tachycardia, tachypnea; leukopenia chronic, at baseline; lactic acid WNL Continue Unasyn, started 05/02/2024 Titrate supplemental O2 >92, wean as tolerated Blood cultures pending Alcohol use disorder continue phenobarb protocol Daily multivitamin, folic acid, Thiamine Famotidine 20 mg p.o. CIWA scale Addiction medicine consult Chronic left leg and ankle pain Venous duplex 5 days prior on 04/27 negative for DVT in left lower extremity Left ankle x-ray redemonstrated probable stress fracture of distal tibia metaphysis outpatient follow up Pancytopenia r/t alcohol use disorder and alcoholic cirrhosis Around baseline follow CBC HFpEF Not in acute exacerbation no meds on med rec DVT Prophylaxis: Pneumatic boots due to thrombocytopenia. Requires ongoing inpatient stay for management of hypoxic respiratory failure, pneumonia requiring IV antibiotics and alcohol withdrawal requiring phenobarbital Quality Stroke Does the patient have a stroke diagnosis?: No VTE Prior VTE?: No VTE Risk Level:: Medical - moderate - high VTE Device Contraindication: N/A - Device Ordered VTE Drug Contraindication: Treatment Not Indicated
--- NOTE | 2024-05-03 14:42 | MHC.CM.PN ---
PT REPORTS [place] [address] HE DECLINES CUSTODIAL REFERRALS SAYING HE HAS BEEN THERE BEFORE PT IS INDEPENDENT WITH ALL CARE HE DOES NOT HAVE A PCP BUT STATES HIS BROTHER IS HIS HCP DCP: PT STATES HE WOULD PREFER TO RETURN TO [address] HE DECLINES ASSISTANCE WITH TRANSPORTATION AND SAYS HE WILL WALK
[2024-05-03] MEDS: Acetaminophen 325 MG TABLET 650 MG PO (20:31)
[2024-05-04] VITALS (7 sets, daily range): BP systolic 118–147; BP diastolic 58–71; PULSE 70–85; RESP 16–18; TEMP 36.6–37.3; O2SAT 92–95
[2024-05-04] MEDS: Ampicillin Sodium/Sulbactam Na 3 GM in 0.9 % Sodium Chloride 100 ML IV ×4 (05:55→22:53)
[2024-05-04] MEDS: Acetaminophen 325 MG TABLET 650 MG PO (06:30)
[2024-05-04 07:34] LABS: Anion Gap 12 (12-20); Blood Urea Nitrogen 11 mg/dL (9-16); Calcium 8.8 mg/dL (8.4-10.2); Carbon Dioxide 22 mmol/L (22-29); Chloride 104 mmol/L (96-108); Creatinine Clr Calc Pharmacy 100.7; Estimated Glomerular Filt Rate > 60; Glucose Random 84 mg/dL (60-115); Potassium 3.8 mmol/L (3.3-5.1); Sodium 134 mmol/L (135-145)
[2024-05-04] MEDS: Multivitamin TABLET 1 TAB PO (09:01)
[2024-05-04] MEDS: PHENobarbitaL 15 MG TABLET 45 MG PO ×2 (09:01→22:51)
[2024-05-04] MEDS: 0.9 % Sodium Chloride Flush 3 ML SYRINGE IVFLUSH ×3 (09:01→22:53)
[2024-05-04] MEDS: Thiamine HCL 100 MG in 0.9 % Sodium Chloride 100 ML 202 MG IV (09:01)
[2024-05-04] MEDS: Folic Acid 1 MG TABLET PO (09:01)
--- NOTE | 2024-05-04 09:37 | HO.PM.IMPN ---
Subjective Subjective Date of Service: 05/04/24 Interval History: Seen and examined this morning were pneumonia, alcohol intoxication Awake and eating breakfast no c/o pain Not tremulous Review of Systems Review of Systems: Yes all other systems are reviewed and are negative Constitutional Constitutional: Denies fever(s) Cardiovascular Cardiovascular: Denies chest pain Physical Exam Vital Signs: Vital Signs: Last Vital Signs Temp 97.8 F 05/04/24 08:00 Pulse 79 05/04/24 08:00 Resp 16 05/04/24 08:00 BP 144/71 H 05/04/24 08:00 Pulse Ox 94 05/04/24 08:00 O2 Del Method Nasal Cannula 05/04/24 08:00 O2 Flow Rate 2.0 05/04/24 08:00 BMI result Body Mass Index 21.0 Appearing in no acute distress lung sounds are clear to auscultation heart regular rate rhythm, clear S1, S2 positive bowel sounds, abdomen is soft, nontender neuro patient is alert x3, no focal deficits Objective Data Active Medications Acetaminophen (Acetaminophen 325 Mg Tablet) 650 mg PO Q6H PRN PRN Reason: Pain, Mild (Pain Scale 1-3), fever or headache Last Admin: 05/04/24 06:30 Dose: 650 mg Documented By: MINDA Calcium Carbonate (Calcium Carbonate 750 Mg Tab.Chew) 750 mg PO Q4H PRN PRN Reason: Heartburn Folic Acid (Folic Acid 1 Mg Tablet) 1 mg PO DAILY [facility] Last Admin: 05/04/24 09:01 Dose: 1 mg Documented By: JOCELYN Ampicillin Sodium/Sulbactam (Sodium 3 gm/ Sodium Chloride) 100 mls @ 200 mls/hr IV Q6H [facility] Last Infusion: 05/04/24 06:33 Dose: Infused Documented By: MINDA Thiamine HCl 100 mg/ Sodium (Chloride) 101 mls @ 202 mls/hr IV DAILY [facility] Last Admin: 05/04/24 09:01 Dose: 202 mls/hr Documented By: JOCELYN Magnesium Hydroxide (Milk Of Magnesia 30 Ml Oral.Susp) 30 ml PO DAILY PRN PRN Reason: Constipation Melatonin (Melatonin 3 Mg Tablet) 6 mg PO BEDTIME PRN PRN Reason: Insomnia Multivitamins/Vitamin C (Multivitamin Tablet) 1 tab PO DAILY [facility] Last Admin: 05/04/24 09:01 Dose: 1 tab Documented By: OJCELYN Pharmacy Consult (Consult Rx Etoh Phenob Im/Po) 1 each MISCELLANE ONCE PRN; Protocol PRN Reason: Consult order Phenobarbital (Phenobarbital 15 Mg Tablet) 45 mg PO BID [facility]; Protocol Stop: 05/04/24 21:01 Last Admin: 05/04/24 09:01 Dose: 45 mg Documented By: JOCELYN Phenobarbital (Phenobarbital 15 Mg Tablet) 15 mg PO BID [facility]; Protocol Stop: 05/06/24 21:01 Phenobarbital (Phenobarbital 15 Mg Tablet) 15 mg PO DAILY [facility]; Protocol Stop: 05/08/24 09:01 Sodium Chloride (0.9 % Sodium Chloride Flush 3 Ml Syringe) 3 ml IVFLUSH QSHIFT [facility] Last Admin: 05/04/24 09:01 Dose: 3 ml Documented By: JOCELYN Labs 05/03/24 06:01 05/04/24 05:47 Labs: Laboratory Results - last 24 hr 05/04/24 05:47 Hold Purple Top SEE NOTE Anion Gap 12 Estim Creat Clear Calc 100.7 Estimated GFR > 60 Random Glucose 84 Calcium 8.8 Microbiology Microbiology Results: Microbiology 05/02/24 21:00 Blood Culture - Preliminary Blood - Venous No growth after 24 hours. 05/02/24 21:00 Blood Culture - Preliminary Blood - Venous No growth after 24 hours. Assessment and Plan (1) Left lower lobe pneumonia: Status: Acute Plan Pt is a 54-year-old male with a PMH significant for?alcoholic cirrhosis, esophageal varices, alcohol use disorder, and HFpEF who presents to the ED via EMS after bystanders called the paramedics as patient was seen to be acutely intoxicated. Pt will be admitted to the hospital for treatment and further evaluation of acute hypoxic respiratory failure in the setting of likely aspiration pneumonia secondary to alcohol intoxication. Acute hypoxic respiratory failure in the setting of aspiration pneumonia CTA of chest found patchy ground-glass airspace disease in left lower lobe, Likely secondary to aspiration from acute alcohol intoxication Unasyn, started 05/02/2024 Titrate supplemental O2 >92, wean as tolerated, ambulating sat Blood cultures neg Alcohol use disorder continue phenobarb protocol Daily multivitamin, folic acid, Thiamine Famotidine 20 mg p.o. CIWA scale Addiction medicine following Chronic left leg and ankle pain Venous duplex 5 days prior on 04/27 negative for DVT in left lower extremity Left ankle x-ray redemonstrated probable stress fracture of distal tibia metaphysis outpatient follow up Pancytopenia r/t alcohol use disorder and alcoholic cirrhosis Around baseline follow CBC HFpEF Not in acute exacerbation Attending Dr. Burt DVT Prophylaxis: Pneumatic boots due to thrombocytopenia. Requires ongoing inpatient stay for management of hypoxic respiratory failure, pneumonia requiring IV antibiotics and alcohol withdrawal requiring phenobarbital Quality Stroke Does the patient have a stroke diagnosis?: No VTE Prior VTE?: No VTE Risk Level:: Medical - moderate - high VTE Device Contraindication: N/A - Device Ordered VTE Drug Contraindication: Treatment Not Indicated
--- NOTE | 2024-05-04 09:59 | PC.NURSE ---
Pt is 94% on RA, 92% while ambulating on RA.
[2024-05-05 03:19] VITALS: BP 126/70; PULSE 83; RESP 16; TEMP 36.7; O2SAT 95
[2024-05-05] MEDS: Ampicillin Sodium/Sulbactam Na 3 GM in 0.9 % Sodium Chloride 100 ML IV (05:07)
[2024-05-05] MEDS: Acetaminophen 325 MG TABLET 650 MG PO (05:55)
[2024-05-05 07:39] VITALS: BP 120/56; PULSE 81; RESP 18; TEMP 36.7; O2SAT 92
--- NOTE | 2024-05-05 07:56 | P.DS_ITS ---
DS: Providers Provider Date of Service: 05/05/24 Date of admission: 05/02/24 21:08 Primary care physician: [facility] Consults: 05/02/24 21:08 Addiction Medicine Routine Consulting Provider: Arpit Sharp Reason for consultation: alcohol use disorder DS: Diagnosis Discharge Diagnosis (1) Left lower lobe pneumonia: Status: Acute DS: Summary Hospital Course Hospital Course: History and physical as per admitting provider. Pt is a 54-year-old male with a PMH significant for?alcoholic cirrhosis, esophageal varices, alcohol use disorder, and HFpEF who presents to the ED via EMS after bystanders called the paramedics as patient was seen to be acutely intoxicated. Patient is well-known to the hospital and especially the ED, where this is the patient's 8th presentation to the ED this month alone, often for seeking assisted and/or acute intoxication. Patient is homeless and continues to drink beer and vodka with no interest in detox. Was just discharged from the emergency department earlier this morning after he was deemed clinically sober. Pt is a poor historian who does not know how or why he came to the hospital. States he was just drinking my beers when the next thing I know I'm in the hospital. Complains of chronic left lower leg edema and left ankle pain. Denies any chest pain/pressure, palpitations. No shortness a breath or difficulty breathing. Denies cough. Denies nausea, vomiting. No abdominal pain. In the ED pt had soft BP as low as 100/53 and satting as low as 85% on RA. Labs were significant for pancytopenic consistent with baseline, and transaminitis consistent with baseline. No significant electrolyte abnormalities. Renal function baseline. Troponin negative. Alcohol level 415 at 17:40. Tested negative for flu, COVID, RSV. CXR showed no acute abnormality of the chest. CTA of the chest negative for central pulmonary embolus, but did find patchy ground-glass disease in left lower lobe that may reflect acute infectious or inflammatory process. Also found hepatic steatosis and gastric varices in left adrenal hyperplasia. EKG demonstrated normal sinus rhythm without evidence of significant ST elevations or depressions. Pt was treated with IVF and Zosyn. Pt will be admitted to the hospital for treatment and further evaluation of acute hypoxic respiratory failure in the setting of likely aspiration pneumonia secondary to alcohol intoxication 54-year-old man treated for acute hypoxic respiratory failure secondary to aspiration pneumonia. Treated with IV Unasyn. Titrated off oxygen. Cultures remained negative and no hypoxia noted. Plan will be to discharge with Augmentin. The patient has list of shelters in the area and was seen and evaluated by the Addiction Medicine team. Alcohol use disorder. Treated with phenobarbital protocol, multivitamin, folic acid and thiamine. On CIWA scale but remained low. Encouraged to stop drinking alcohol and seek outpatient programs for assistance with this. Chronic left leg and ankle pain. Venous Doppler ultrasound was negative for DVT. Ankle x-ray redemonstrated probable stress fracture and distal tibia metaphysis. Plan for outpatient follow-up with primary care provider Pancytopenia. Secondary to alcohol use disorder and alcoholic cirrhosis. At baseline. Heart failure with preserved ejection fraction. No exacerbation during hospitalization. Not on any medication for this. Patient should follow up with his primary care provider for cardiology referral if needed. Time Attestation Discharge Coordination Time (in mins): 35 Quality: Safe Use of Opioids Does Pt have an Active Cancer Diagnosis on the Problem List?: No Quality: Stroke Does the patient have a stroke diagnosis?: No Physical Exam Vital Signs: Vital Signs: Last Vital Signs Temp 98.1 F 05/05/24 07:39 Pulse 81 05/05/24 07:39 Resp 18 05/05/24 07:39 BP 120/56 L 05/05/24 07:39 Pulse Ox 92 05/05/24 07:39 O2 Del Method Room Air 05/05/24 07:39 O2 Flow Rate 2.0 05/04/24 08:00 BMI result Body Mass Index 21.0 Appearing in no acute distress head is normocephalic atraumatic eyes pupils are PERRLA sclera is anicteric mouth throat mucous membranes are intact and moist neck is supple no lymphadenopathy, no JVD noted lung sounds are clear to auscultation heart regular rate rhythm, clear S1, S2 positive bowel sounds, abdomen is soft, nontender neuro patient is alert x3, no focal deficits DS: Data Data Completed and Pending Completed studies during hospitalization [Text1]: Procedures Control Bleeding in Gastrointestinal Tract, Via Natural or Artificial Opening Endoscopic (08/29/23) Detoxification Services for Substance Abuse Treatment (01/22/24) Drainage of Peritoneal Cavity, Percutaneous Approach (06/24/23) Excision of Ascending Colon, Via Natural or Artificial Opening Endoscopic, Diagnostic (08/03/23) Excision of Descending Colon, Via Natural or Artificial Opening Endoscopic, Diagnostic (08/03/23) Insertion of Infusion Device into Upper Vein, Percutaneous Approach (08/29/23) Introduction of Mineral-based Topical Hemostatic Agent into Lower GI, Via Natural or Artificial Opening Endoscopic, [employer] (08/03/23) Introduction of Mineral-based Topical Hemostatic Agent into Upper GI, Via Natural or Artificial Opening Endoscopic, [employer] (08/29/23) Occlusion of Esophageal Vein with Extraluminal Device, Via Natural or Artificial Opening Endoscopic (08/03/23) Occlusion of Esophageal Vein, Via Natural or Artificial Opening Endoscopic (01/22/24) Transfusion of Nonautologous Plasma Cryoprecipitate into Peripheral Vein, Percutaneous Approach (08/03/23) Transfusion of Nonautologous Platelets into Peripheral Vein, Percutaneous Approach (01/22/24) Transfusion of Nonautologous Red Blood Cells into Peripheral Vein, Percutaneous Approach (08/29/23) Labs on day of discharge: Preliminary micro results at discharge 05/02/24 21:00 Blood Culture - Preliminary Blood - Venous No growth after 48 hours. 05/02/24 21:00 Blood Culture - Preliminary Blood - Venous No growth after 48 hours. Discharge Plan Discharge Anticipated Discharge Date/Time: 05/05/24 07:53 Patient Disposition: Home, Self-Care Discharge Diagnosis: Acute hypoxic respiratory failure Aspiration pneumonia Alcohol use disorder Referrals: [facility] [Primary Care Provider] - 1 Week Discharge Medications: New multivitamin [Daily-Barry] Tablet 1 tab PO DAILY Qty: 90 0RF folic acid 1 mg Tablet 1 mg PO DAILY Qty: 90 0RF thiamine HCl (vitamin B1) 100 mg tablet 100 mg PO DAILY Qty: 90 0RF amoxicillin-pot clavulanate 875-125 mg tablet 1 tab PO BID Qty: 8 0RF Continued acetaminophen [Tylenol] 325 mg capsule 325 mg PO Q4H PRN (Reason: pain) Qty: 30 0RF Discharge Orders: Discharge Order (Routine); Ordered 05/05/24 Ordered By: Massiel Fall Diet: Advance to usual diet Activity on Discharge: As tolerated Stand Alone Forms: Patient Portal Discharge page Print Language: Irish Care Plan Goals: Stop drinking alcohol. Seek outpatient resources for assistance with this Health Concerns: Acute hypoxic respiratory failure Aspiration pneumonia Alcohol use disorder Plan of Treatment: Follow-up with primary care provider as needed Take all medications as prescribed Assessment: See discharge summary
[2024-05-05] MEDS: Multivitamin TABLET 1 TAB PO (09:01)
[2024-05-05] MEDS: 0.9 % Sodium Chloride Flush 3 ML SYRINGE IVFLUSH (09:01)
[2024-05-05] MEDS: Folic Acid 1 MG TABLET PO (09:01)
[2024-05-05] MEDS: PHENobarbitaL 15 MG TABLET PO (09:01)
[2024-05-05] MEDS: Thiamine HCL 100 MG in 0.9 % Sodium Chloride 100 ML 202 MG IV (09:01)
--- NOTE | 2024-05-05 09:53 | MHC.CM.PN ---
PT WILL DC TODAY, HE HAS DECLINED [facility]ERR[facility] TO [facility] AND STATES HE PREFERS TO RETURN [facility] [address]
== END 2024-05-05 09:47 | disposition home or self-care (01) | DRG 137 ==
LOC: HO.ED 17:35 → HO.EDOVER 21:16 → HO.S3 23:14
PROVIDERS: Nurse Practitioner Family; Physician Assistant Medical; Admitting Provider Student in an Organized Health Care Education/Training Program; Emergency Provider Internal Medicine; Visit Provider Nurse Practitioner Acute Care
DX: J69.0 Pneumonitis due to inhalation of food and vomit (principal); J96.01 Acute respiratory failure with hypoxia; D61.818 Other pancytopenia; F10.129 Alcohol abuse with intoxication, unspecified; K70.30 Alcoholic cirrhosis of liver without ascites; I85.10 Secondary esophageal varices without bleeding; M84.362A Stress fracture, left tibia, initial encounter for fracture; X58.XXXA Exposure to other specified factors, initial encounter; I50.32 Chronic diastolic (congestive) heart failure; F10.139 Alcohol abuse with withdrawal, unspecified; Z20.822 Contact with and (suspected) exposure to COVID-19; Z59.02 Unsheltered homelessness; Y90.8 Blood alcohol level of 240 mg/100 ml or more; Z87.891 Personal history of nicotine dependence
CPT/HCPCS: 0241U; 36415; 71046; 71275; 80048; 80053; 80307; 83605; 83735; 83880; 84484; 85025; 85379; 85610; 87040; 93005; 99285; J0295; J2543; J2560; J3411; Q9967

== ENCOUNTER → 2024-05-02 17:02 | Outpatient (BNV) | payer MEDICAID, SELFPAY | PROVIDERS: Admitting Provider Student in an Organized Health Care Education/Training Program; Emergency Provider Internal Medicine; Visit Provider Internal Medicine Cardiovascular Disease | DX: R06.02 Shortness of breath (principal) | CPT/HCPCS: 93010 ==

== ENCOUNTER → 2024-05-02 21:08 | Outpatient (BNV) | payer MEDICAID, SELFPAY | PROVIDERS: Admitting Provider Student in an Organized Health Care Education/Training Program; Emergency Provider Internal Medicine; Visit Provider Student in an Organized Health Care Education/Training Program | DX: F10.920 Alcohol use, unspecified with intoxication, uncomplicated (principal); J69.0 Pneumonitis due to inhalation of food and vomit; J18.9 Pneumonia, unspecified organism | CPT/HCPCS: 99223; 99232; 99239 ==

== ENCOUNTER 2024-05-11 19:39 | Emergency (ER) | payer MEDICAID, SELFPAY ==
--- NOTE | ~2024-05-11 | CT_ITS ---
EXAMINATION: CT head/brain wo IV con CT cervical spine wo IV con INDICATION INFORMATION: fall head strike, neck pain COMPARISON: CT head 04/29/2024, CT C-spine 01/17/2024 TECHNIQUE: Separate noncontrast CT examinations of the head and cervical spine were performed. Coronal and sagittal reformats were obtained at the acquisition workstation. This CT examination was performed using dose optimization techniques as appropriate, variously including the following: * Automated exposure control * Adjustment of mA and/or kV according to patient size (this includes techniques or standardized protocols for targeted exams where dose is matched to indication/reason for exam; i.e. extremities or head) * Use of iterative reconstruction technique DLP: 958 mGy-cm FINDINGS: HEAD: There is no evidence of acute intracranial hemorrhage or territorial infarction. Weaver to white matter differentiation is well preserved. No abnormal mass effect or midline shift is seen. No extra-axial fluid collections are identified. No hydrocephalus. Mineralization the bilateral basal ganglia. Proportional prominence of the ventricles and sulcal spaces is consistent with mild volume loss. Patchy periventricular and deep white matter hypoattenuation is consistent with mild small vessel ischemic changes. The cerebellar tonsils are well positioned. No acute osseous or soft tissue abnormality. Visualized portions of the orbits are unremarkable. The mastoid air cells and visualized portions of the paranasal sinuses are well aerated. CERVICAL SPINE: No evidence of acute fracture or traumatic subluxation of the cervical spine. There is anatomic alignment of the vertebral bodies and posterior elements. Vertebral body heights and intervertebral disc spaces are maintained. The atlantoaxial and atlantooccipital articulations are intact. No prevertebral soft tissue swelling. There is no cervical lymphadenopathy. The visualized thyroid gland is unremarkable. Patchy opacities in the visualized bilateral lung apices. CT/CT cervical spine wo IV con IMPRESSION: 1. No acute intracranial pathology. 2. No acute osseous abnormality within the cervical spine. 3. Patchy opacities in the visualized bilateral lung apices.
[2024-05-11 20:02] VITALS: BP 127/62; PULSE 95; RESP 18; TEMP 36.7; O2SAT 95
[2024-05-11 20:27] VITALS: BP 120/50; PULSE 78; O2SAT 98
[2024-05-11 20:33] VITALS: BP 127/62; PULSE 95; RESP 18; TEMP 36.7; O2SAT 95; BMI 21.5
--- NOTE | 2024-05-11 20:38 | ED_ITS ---
HPI - General Adult General Chief complaint: ETOH/Substance Use Stated complaint: sleeping on sidewalk, leg pain Time Seen by Provider: 05/11/24 19:57 Source: patient and EMS Mode of arrival: EMS Limitations: other (Intoxicated) History of Present Illness ED Provider: Silvestre PUGA HPI narrative: 54-year-old male history of alcohol use disorder, esophageal varices, hepatic encephalopathy, presents w/ cc i dont have a fucking clue why I am here per EMS police found patient napping outside. He reports he was just drinking and was brought in today. He states nothing is hurting him. He is just hungry. Denies any medical complaints. Denies chest pain, shortness breath, nausea vomiting, abdominal pain, headache, vision changes, dizziness and weakness. Screaming I just want my beer Related Data Previous Rx's ?Medication ?Instructions ?Recorded acetaminophen 325 mg capsule 325 mg PO Q4H PRN pain #30 caps 03/13/24 (Tylenol) amoxicillin 875 mg-potassium 1 tab PO BID #8 tabs 05/05/24 clavulanate 125 mg tablet folic acid 1 mg tablet 1 mg PO DAILY #90 tabs 05/05/24 multivitamin (Daily-Barry tablet) 1 tab PO DAILY #90 tabs 05/05/24 thiamine HCl (vitamin B1) 100 mg 100 mg PO DAILY #90 tabs 05/05/24 tablet azithromycin 250 mg tablet See Rx Instructions PO .COMPLEX #6 05/11/24 tabs Allergies Allergy/AdvReac Type Severity Reaction Status Date / Time No Known Allergies Allergy Verified 05/11/24 20:34 [No Known Allergies*] Review of Systems 2 Review of Systems: Yes all other systems are reviewed and are negative PMFSH Past Medical History Attestation statement: The following information was validated with the patient. Source: old records reviewed and nursing notes reviewed Medical History Thrombocytopenia Alcohol withdrawal syndrome Cirrhosis Malnutrition CHF (congestive heart failure) Anemia Aspiration pneumonia Pneumonia Hypomagnesemia Thrombocytopenia Alcoholic liver disease Acute on chronic anemia CHF (congestive heart failure) Anemia Alcohol abuse Surgical History No history of previous surgery Social History Social History Household Members: None Household Members Other:: pt homeless Housing: Homeless Housing Other:: homeless Do you presently have visiting nurse or other home services: No Unable to assess alcohol history related to: Refusing to respond Alcohol intake: current Alcohol intake frequency: 3 or more drinks per day Alcohol type: beer and hard liquor Comment: 1 assist to bathroom Patient Tobacco Use Status: Former Tobacco user Tobacco use type: Cigarette Second Hand Smoke Exposure: No Advance Directives: Yes Advance Directives on File: Yes Advance Directives Date on File: 07/13/23 Do you have a plan to hurt others: No Plan service: No Physical Exam ED Vital Signs: Vital Signs - 24 hr 05/11/24 20:02 05/11/24 20:33 Temperature 98.1 F 98.1 F Pulse Rate 95 95 Respiratory Rate 18 18 Blood Pressure 127/62 127/62 Pulse Oximetry 95 95 Oxygen Delivery Method Room Air Room Air BMI result Body Mass Index 21.5 vss Appearance: Alert.? Oriented X3.? No acute distress.? Head: Normocephalic, atraumatic, no step-offs or deformities Eyes: Pupils equal, round and reactive to light.? Neck: Normal inspection.? Neck supple.? CVS: Normal heart rate and rhythm.? Pulses normal.? Respiratory: No respiratory distress.? Breath sounds normal.? Abdomen: Soft and nontender.? Skin: Skin warm and dry.? Normal skin color.? Normal skin turgor.? Extremities: No lower extremity edema.? No calf ttp. 5/5 strength to bilateral upper and lower extremities Neuro: Oriented X 3.? No motor deficit.? No sensory deficit. CN 2-12 intact Course Reevaluation(s) Reevaluation #1: CBC with baseline leukopenia normocytic anemia. He also has a baseline thrombocytopenia today better than his baseline. Chemistry unremarkable no acute findings requiring intervention. CT head no acute intracranial pathology no acute osseous abnormality within the cervical spine. Patchy opacities in bilateral lung apices for this reason will discharge patient home on azithromycin for concerns of possible pneumonia. UA and urine toxicology pending. At this time patient to be placed into observation to allow patient to metabolize. Will discharge patient when he is clinically sober. He has not interested in detox. No suicidal or homicidal ideation. No indication for Section 12. Plan is for discharge when patient is clinically sober. Time: 22:26 Medical Decision Making Medical Decision Making MDM Narrative: 54-year-old male presents after being found sleeping outside by fire Department, patient reports he was drinking and fell asleep. No reported trauma. No SI or HI Physical exam benign History and physical exam concerning for alcohol intoxication versus polysubstance abuse. Unlikely metabolic derangements. No signs of trauma head, neck, chest, abdomen or pelvis. Plan at this time medical clearance. Patient to be discharged when clinically sober. Differential Diagnosis Differential Diagnoses: The differential diagnosis associated with the presentation includes History and physical exam concerning for alcohol intoxication versus polysubstance abuse. Unlikely metabolic derangements. No signs of trauma head, neck, chest, abdomen or pelvis. Admission/Observation Consideration of admission/observation: Escalation of care including admission/observation considered Unlikely Lab Data [facility] Lab Attestation statement: I reviewed the patient's lab results. 05/11/24 21:30 05/11/24 21:30 Labs: Lab Results 05/11/24 Range/Units 21:30 WBC 2.9 L (4.8-10.8) X10*3/uL RBC 3.02 L (4.60-5.80) X10*6/uL Hgb 9.4 L (14.0-18.0) g/dl Hct 28.5 L (42.0-52.0) % MCV 94.4 (80.0-98.0) fL MCH 31.1 (27.0-33.0) pg MCHC 33.0 (31.0-36.0) g/dl RDW 15.9 (11.0-16.0) % Plt Count 61 L D (160-400) X10*3/uL MPV 10.9 (9.4-12.4) fL Immature Gran % (Auto) 0.7 H (0.0-0.4) % Neut % (Auto) 43.4 L (45-73) % Lymph % (Auto) 29.3 (20-40) % [place] % (Auto) 22.4 H (2-11) % Eos % (Auto) 2.8 (0-4) % Baso % (Auto) 1.4 (0-2) % Lymph # (Auto) 0.9 L (1.2-4.9) X10*3/uL [place] # (Auto) 0.7 (0.1-1.2) X10*3/uL Eos # (Auto) 0.1 (0.0-0.4) X10*3/uL Baso # (Auto) 0.0 (0.0-0.2) X10*3/uL Abs Immat Gran (auto) 0.02 (0.00-0.03) X10*3/uL Absolute Neuts (auto) 1.3 L (2.0-8.3) x10*3/uL Absolute Nucleated RBC 0.000 (0.0-0.012) X10*3/uL Nucleated RBC % (auto) 0.0 (0.0-0.2) /100WBC Smear Tech's Comments VERIFIED PT 14.6 H (11.1-13.3) SEC INR 1.2 H (0.9-1.1) Sodium 143 (135-145) mmol/L Potassium 3.6 (3.3-5.1) mmol/L Chloride 113 H (96-108) mmol/L Carbon Dioxide 22 (22-29) mmol/L Anion Gap 12 (12-20) BUN 8 L (9-16) mg/dL Creatinine 0.77 (0.5-1.4) mg/dL Estim Creat Clear Calc 92.7 Estimated GFR > 60 Random Glucose 96 (60-115) mg/dL Calcium 8.6 (8.4-10.2) mg/dL Magnesium 2.1 (1.6-2.6) mg/dL Total Bilirubin 0.3 (0.0-1.0) mg/dL AST 71 H (5-37) U/L ALT 15 (0-40) U/L Alkaline Phosphatase 130 H (39-117) U/L Total Protein 8.0 (6.5-8.0) g/dL Albumin 3.4 L (3.5-5.0) g/dL Independent Interpretation I performed an independent interpretation of an: CT Scan Radiology Impression Discussion of test interpretation with radiology: I have reviewed the radiologist's reading. External Record Review External record reviewed: Inpatient record, Office record, Outpatient record, Prior outpatient labs, Prior outpatient radiology, Primary care record and Outside ED record Critical Care Time Critical Care Time Critical Care Time: No Discharge Plan Discharge Clinical Impression: Alcohol use disorder, Pneumonia Patient Disposition: Home, Self-Care Instructions: Abuse of Alcohol (DC), Pneumonia (ED) Additional Instructions: Take your medications as prescribed. If you were prescribed antibiotics today, it is important that you take your medication to their entirety, do not skip any doses, do not finish them early. Follow-up with your primary care provider this week. Return to the emergency department with new or worsening symptoms. In case of emergency call 911 Prescriptions: New azithromycin 250 mg tablet See Rx Instructions .ROUTE .COMPLEX Qty: 6 0RF Rx Instructions: For 250 mg dose pack: take 500 mg today (day 1), then 250 mg for 4 days (days 2-5) No Action acetaminophen [Tylenol] 325 mg capsule 325 mg PO Q4H PRN (Reason: pain) Qty: 30 0RF multivitamin [Daily-Barry] Tablet 1 tab PO DAILY Qty: 90 0RF folic acid 1 mg Tablet 1 mg PO DAILY Qty: 90 0RF thiamine HCl (vitamin B1) 100 mg tablet 100 mg PO DAILY Qty: 90 0RF amoxicillin-pot clavulanate 875-125 mg tablet 1 tab PO BID Qty: 8 0RF Referrals: Physician,Unknown J [Primary Care Provider] - 2 days Print Language: Bengali
[2024-05-11 21:34] LABS: Basophils Percent Auto 1.4 % (0-2); Eosinophils Absolute Auto 0.1 X10*3/uL (0.0-0.4); Eosinophils Percent Auto 2.8 % (0-4); Hematocrit 28.5 % (42.0-52.0); Hemoglobin 9.4 g/dl (14.0-18.0); Imm Gran Abs Auto 0.02 X10*3/uL (0.00-0.03); Imm Gran Pct Auto 0.7 % (0.0-0.4); Lymphocytes Absolute Auto 0.9 X10*3/uL (1.2-4.9); Lymphocytes Percent Auto 29.3 % (20-40); MANUAL DIFF FLAG SCAN; Mean Corpuscular Hemoglobin 31.1 pg (27.0-33.0); Mean Corpuscular Volume 94.4 fL (80.0-98.0); Mean Platelet Volume 10.9 fL (9.4-12.4); Monocytes Absolute Auto 0.7 X10*3/uL (0.1-1.2); Monocytes Percent Auto 22.4 % (2-11); Neutrophils Absolute Auto 1.3 x10*3/uL (2.0-8.3); Neutrophils Percent Auto 43.4 % (45-73); Red Blood Count 3.02 X10*6/uL (4.60-5.80); Red Cell Distribution Width 15.9 % (11.0-16.0); SCAN SMEAR FLAG 1; White Blood Count 2.9 X10*3/uL (4.8-10.8)
[2024-05-11 21:40] LABS: INTERNATIONAL NORM RATIO 1.2 (0.9-1.1); Prothrombin Time 14.6 SEC (11.1-13.3)
[2024-05-11 21:45] LABS: Platelet Count 61 X10*3/uL (160-400)
[2024-05-11 21:53] LABS: Alanine Aminotransferase 15 U/L (0-40); Albumin Level 3.4 g/dL (3.5-5.0); Alkaline Phosphatase 130 U/L (39-117); Anion Gap 12 (12-20); Aspartate Amino Transferase 71 U/L (5-37); Bilirubin Total 0.3 mg/dL (0.0-1.0); Blood Urea Nitrogen 8 mg/dL (9-16); Calcium 8.6 mg/dL (8.4-10.2); Carbon Dioxide 22 mmol/L (22-29); Chloride 113 mmol/L (96-108); Creatinine Clr Calc Pharmacy 92.7; Estimated Glomerular Filt Rate > 60; Glucose Random 96 mg/dL (60-115); Magnesium 2.1 mg/dL (1.6-2.6); Potassium 3.6 mmol/L (3.3-5.1); Sodium 143 mmol/L (135-145)
[2024-05-11 22:18] LABS: SLIDE REVIEW VERIFIED
[2024-05-12 01:30] VITALS: BP 105/75; PULSE 82; RESP 14; O2SAT 96
--- NOTE | 2024-05-12 02:37 | PC.NURSE ---
Patient is resting comfortably in a stretcher bed, respirations are even , unlabored, RR 16. Patient not in acute distress, attempted to medicate patient with Doxycycline 100 mg PO, refused to take oral antibiotic at this time stating that I will take it later . ED provider notified.
[2024-05-12] MEDS: Doxycycline Monohydrate 100 MG CAPSULE PO (05:59)
[2024-05-12] MEDS: Azithromycin 500 MG TABLET PO (06:35)
[2024-05-12 06:44] VITALS: BP 104/74; PULSE 80; RESP 16; TEMP 36.7; O2SAT 98
[2024-05-12 07:06] VITALS: BP 104/74; PULSE 80; RESP 16; TEMP 36.7; O2SAT 98
== END 2024-05-12 07:08 | disposition home or self-care (01) ==
PROVIDERS: Physician Assistant; Emergency Provider Emergency Medicine
DX: F10.10 Alcohol abuse, uncomplicated (principal); J18.9 Pneumonia, unspecified organism; D64.9 Anemia, unspecified; K76.82 Hepatic encephalopathy; Z79.899 Other long term (current) drug therapy; Y90.9 Presence of alcohol in blood, level not specified
CPT/HCPCS: 36415; 70450; 72125; 80053; 83735; 85025; 85610; 99284; 99285

== ENCOUNTER 2024-05-12 16:32 | Emergency (ER) | payer MEDICAID, SELFPAY ==
[2024-05-12 16:47] VITALS: BMI 22.1
--- NOTE | 2024-05-12 17:05 | ED_ITS ---
HPI - General Adult General Chief complaint: Extremity Injury, Lower Stated complaint: Ankle Pain Time Seen by Provider: 05/12/24 16:36 Source: patient and EMS Mode of arrival: EMS Limitations: no limitations History of Present Illness ED Provider: Dr. Alexandria Sweeney HPI narrative: Via ambulance complaining of left ankle pain which has been present for several months, admits that he drank a lot of alcohol prior to arrival and he wants something to eat. Patient denies hitting his head or losing consciousness. Related Data Previous Rx's ?Medication ?Instructions ?Recorded acetaminophen 325 mg capsule 325 mg PO Q4H PRN pain #30 caps 03/13/24 (Tylenol) amoxicillin 875 mg-potassium 1 tab PO BID #8 tabs 05/05/24 clavulanate 125 mg tablet folic acid 1 mg tablet 1 mg PO DAILY #90 tabs 05/05/24 multivitamin (Daily-Barry tablet) 1 tab PO DAILY #90 tabs 05/05/24 thiamine HCl (vitamin B1) 100 mg 100 mg PO DAILY #90 tabs 05/05/24 tablet azithromycin 250 mg tablet See Rx Instructions PO .COMPLEX #6 05/11/24 tabs doxycycline hyclate 100 mg capsule 100 mg PO BID 7 days #14 caps 05/11/24 Allergies Allergy/AdvReac Type Severity Reaction Status Date / Time No Known Allergies Allergy Verified 05/12/24 16:52 [No Known Allergies*] Review of Systems Review of Systems: Constitutional : No Weight loss, No Fever, No Chills, No Night Sweats, No Fatigue, No Malaise ENT/Mouth : No Hearing loss, No Ear Pain, No Nasal Congestion, No Sinus Pain, No Hoarseness, No sore throat, No Rhinorrhea, No Swallowing Difficulty Eyes: No Eye Pain, No Swelling, No Redness, No Foreign Body, No Discharge, No Vision Changes Cardiovascular : No Chest Pain, No SOB, No Dyspnea on Exertion, No Orthopnea, No Edema, No Palpitations Respiratory : No Cough, No Sputum, No Wheezing, No Smoke Exposure, No Dyspnea Gastrointestinal : No Nausea, No Vomiting, No Diarrhea, No Constipation, No abdominal Pain, No Hematochezia, No Melena Genitourinary : no irregular bleeding, No Dysuria, No Urinary Frequency, No Hematuria, No Urinary Incontinence, No Urgency, No Flank Pain, No Urinary Flow Changes, No Hesitancy Musculoskeletal : Chronic left ankle swelling No Myalgias, No Joint Swelling Skin : No Skin Lesions, No rash Neuro : No Weakness, No Numbness, No Paresthesias, No Loss of Consciousness, No Dizziness, No Headache Psych : No Anxiety/Panic, No Depression, No SI/HI/AH/VH, No Social Issues, Heme/Lymph: No Bruising, No Bleeding,No Lymphadenopathy Endocrine : No Polyuria, No Polydipsia, No Temperature Intolerance [facility] Past Medical History Medical History Thrombocytopenia Alcohol withdrawal syndrome Cirrhosis Malnutrition CHF (congestive heart failure) Anemia Aspiration pneumonia Pneumonia Hypomagnesemia Thrombocytopenia Alcoholic liver disease Acute on chronic anemia CHF (congestive heart failure) Anemia Alcohol abuse Surgical History No history of previous surgery Social History Social History Household Members: None Household Members Other:: pt homeless Housing: Homeless Housing Other:: homeless Do you presently have visiting nurse or other home services: No Unable to assess alcohol history related to: Refusing to respond Alcohol intake: current Alcohol intake frequency: 3 or more drinks per day Alcohol type: beer and hard liquor Comment: 1 assist to bathroom Patient Tobacco Use Status: Former Tobacco user Tobacco use type: Cigarette Second Hand Smoke Exposure: No Advance Directives: Yes Advance Directives on File: Yes Advance Directives Date on File: 07/13/23 service: No Physical Exam ED Vital Signs: Vital Signs - 24 hr 05/12/24 18:00 Temperature 98.0 F Pulse Rate 75 Respiratory Rate 15 Blood Pressure 129/69 Pulse Oximetry 98 Oxygen Delivery Method Room Air BMI result Body Mass Index 22.1 Course Course Course Narrative: -patient had labs done less than 24 hours ago. Patient reports that he has not fallen or had any injuries. -patient complaining of ETOH and chronic left ankle pain. -physical exam of the left ankle remains unchanged from previous visits -patient has been given multiple times orthopedic shoes, patient loses them -physician observation started at 19:00 plan: Metabolize to freedom Medical Decision Making Medical Decision Making MDM Narrative: Midnight: Patient remains sleeping, comfortable, wakes up easily. -once sober, patient can be discharged Differential Diagnosis Differential Diagnoses: The differential diagnosis associated with the presentation includes (Polysubstance abuse, alcohol intoxication) Admission/Observation Consideration of admission/observation: Escalation of care including admission/observation considered (Patient is under physician observation waiting to become sober and to be discharged) Critical Care Time Critical Care Time Critical Care Time: Yes Total Critical Care Time: 30 Attestation: I have personally provided critical care time. Time includes review of lab data, radiology results, discussion with consultants, and monitoring for potential decompensation. Intervention performed as documented. Discharge Plan Discharge Clinical Impression: Alcohol intoxication Patient Disposition: Still a Patient Prescriptions: No Action acetaminophen [Tylenol] 325 mg capsule 325 mg PO Q4H PRN (Reason: pain) Qty: 30 0RF multivitamin [Daily-Barry] Tablet 1 tab PO DAILY Qty: 90 0RF folic acid 1 mg Tablet 1 mg PO DAILY Qty: 90 0RF thiamine HCl (vitamin B1) 100 mg tablet 100 mg PO DAILY Qty: 90 0RF amoxicillin-pot clavulanate 875-125 mg tablet 1 tab PO BID Qty: 8 0RF azithromycin 250 mg tablet See Rx Instructions .ROUTE .COMPLEX Qty: 6 0RF Rx Instructions: For 250 mg dose pack: take 500 mg today (day 1), then 250 mg for 4 days (days 2-5) doxycycline hyclate 100 mg capsule 100 mg PO BID 7 Days Qty: 14 0RF Print Language: Telugu
[2024-05-12 18:00] VITALS: BP 129/69; PULSE 75; RESP 15; TEMP 36.7; O2SAT 98
[2024-05-13 01:21] VITALS: BP 122/70; PULSE 76; RESP 18; TEMP 36.9; O2SAT 94
[2024-05-13 02:00] VITALS: BP 131/81; PULSE 76; RESP 18; O2SAT 96
[2024-05-13 06:00] VITALS: BP 126/76; PULSE 84; RESP 18; TEMP 37; O2SAT 96
[2024-05-13 06:43] VITALS: BP 126/76; PULSE 84; RESP 18; TEMP 37; O2SAT 96
== END 2024-05-13 06:47 | disposition home or self-care (01) ==
PROVIDERS: Emergency Provider Emergency Medicine
DX: F10.129 Alcohol abuse with intoxication, unspecified (principal); M25.572 Pain in left ankle and joints of left foot; Y90.9 Presence of alcohol in blood, level not specified; Z79.899 Other long term (current) drug therapy
CPT/HCPCS: 99284

== ENCOUNTER 2024-05-14 16:16 | Emergency (ER) | payer MEDICAID, SELFPAY ==
[2024-05-14 16:25] VITALS: BP 174/108; PULSE 80; O2SAT 94
[2024-05-14 16:30] VITALS: BP 119/61; PULSE 74; RESP 14; TEMP 36.6; O2SAT 94; BMI 19.4
--- NOTE | 2024-05-14 16:35 | ED_ITS ---
HPI - General Adult General Chief complaint: Extremity Injury, Lower Stated complaint: ETOH,LEG PAIN Time Seen by Provider: 05/14/24 16:21 Source: patient Mode of arrival: EMS Limitations: other (eTOH intoxication) History of Present Illness HPI narrative: Patient is a 54-year-old male who presents to the emergency department via EMS for evaluation. He states he does not know why he is here today. Per EMS report he was found sitting outside of the fire department stating that he could not walk due to left leg pain. He admits to alcohol consumption prior to arrival, reporting that he drank 2 beers and a half pt of vodka. He denies any recent fall. He is drinking water and eating a sandwich. Related Data Previous Rx's ?Medication ?Instructions ?Recorded acetaminophen 325 mg capsule 325 mg PO Q4H PRN pain #30 caps 03/13/24 (Tylenol) amoxicillin 875 mg-potassium 1 tab PO BID #8 tabs 05/05/24 clavulanate 125 mg tablet folic acid 1 mg tablet 1 mg PO DAILY #90 tabs 05/05/24 multivitamin (Daily-Barry tablet) 1 tab PO DAILY #90 tabs 05/05/24 thiamine HCl (vitamin B1) 100 mg 100 mg PO DAILY #90 tabs 05/05/24 tablet azithromycin 250 mg tablet See Rx Instructions PO .COMPLEX #6 05/11/24 tabs doxycycline hyclate 100 mg capsule 100 mg PO BID 7 days #14 caps 05/11/24 Allergies Allergy/AdvReac Type Severity Reaction Status Date / Time No Known Allergies Allergy Verified 05/14/24 16:33 [No Known Allergies*] Review of Systems 2 Review of Systems: Yes all other systems are reviewed and are negative PMFSH Past Medical History Attestation statement: The following information was validated with the patient. Source: old records reviewed Medical History Thrombocytopenia Alcohol withdrawal syndrome Cirrhosis Malnutrition CHF (congestive heart failure) Anemia Aspiration pneumonia Pneumonia Hypomagnesemia Thrombocytopenia Alcoholic liver disease Acute on chronic anemia CHF (congestive heart failure) Anemia Alcohol abuse Surgical History No history of previous surgery Social History Social History Household Members: None Household Members Other:: pt homeless Housing: Homeless Housing Other:: homeless Do you presently have visiting nurse or other home services: No Unable to assess alcohol history related to: Refusing to respond Alcohol intake: current Alcohol intake frequency: 3 or more drinks per day Alcohol type: beer and hard liquor Comment: 1 assist to bathroom Patient Tobacco Use Status: Former Tobacco user Tobacco use type: Cigarette Smoked in Last 30 Days: Yes Second Hand Smoke Exposure: No Use of substances other than those prescribed or required for medical reasons: Yes Advance Directives: Yes Advance Directives on File: Yes Advance Directives Date on File: 07/13/23 Do you have a plan to hurt others: No Plan service: No Physical Exam ED Vital Signs: Vital Signs - 24 hr 05/14/24 16:30 05/14/24 20:16 Temperature 97.8 F 98.7 F Pulse Rate 74 80 Respiratory Rate 14 16 Blood Pressure 119/61 122/64 Pulse Oximetry 94 95 Oxygen Delivery Method Room Air Room Air BMI result Body Mass Index 19.4 Appearance: Alert.?Oriented to person, place and time. No acute distress.?Normal affect. Eyes: Pupils equal, round and reactive to light.? ENT: Pharynx normal.?? Neck: Normal inspection.? Neck supple.?? CVS: Heart sounds normal. Normal heart rate and rhythm.? Pulses normal.?? Respiratory: No respiratory distress.? Lung sounds clear to auscultation bilaterally?? Abdomen: Soft and non-tender. Normoactive bowel sounds. No pulsatile mass.?? Skin: Skin warm and dry.? Normal skin color.? Normal skin turgor.?? Extremities: Nonpitting edema to left ankle and proximal midfoot. 2+ DP/PT pulse. No calf tenderness upon palpation. No erythema or warmth? Neuro: Moves all extremities spontaneously. Sensation intact bilaterally. Medical Decision Making Medical Decision Making MDM Narrative: Patient is a 54-year-old male with past medical history of alcohol use disorder, thrombocytopenia, cirrhosis, CHF, anemia, aspiration pneumonia, presenting to emergency department for evaluation, appears acutely intoxicated admitting to ETOH consumption prior to arrival, unaware of why he is here today. Reporting chronic left ankle pain; that over the past few months, has had multiple emergency department visits recently with similar complaint, CT in March of 2024 reveals a likely stress fracture of the left distal tibial metaphysis, ultrasound without evidence of DVT. He had a recent hospital admission at the end of April, was advised to follow-up with primary care provider regarding this, patient states that he has not. He is without chest pain shortness of breath difficulty breathing or hypoxia. Plan to obtain basic labs and anticipate that he will be placed in physician observation until clinical sobriety for safe disposition planning. At this time he declines interest in assistance with detox will reassess when clinically more Differential Diagnosis Differential Diagnoses: The differential diagnosis associated with the presentation includes (See narrative above) Admission/Observation Consideration of admission/observation: Escalation of care including admission/observation considered (See narrative above; placing physician observation at 18:00) Lab Data MDM Lab Attestation statement: I reviewed the patient's lab results. Chronic leukopenia, normocytic anemia, and thrombocytopenia eager to go however she is pending vomiting consistent with baseline. Is electrolytes overall unremarkable. He will no RAVI. LFTs consistent with baseline. Of alcohol level 369. 05/14/24 17:11 05/14/24 17:11 Labs: Lab Results 05/14/24 Range/Units 17:11 WBC 3.0 L (4.8-10.8) X10*3/uL RBC 3.21 L (4.60-5.80) X10*6/uL Hgb 9.9 L (14.0-18.0) g/dl Hct 30.1 L (42.0-52.0) % MCV 93.8 (80.0-98.0) fL MCH 30.8 (27.0-33.0) pg MCHC 32.9 (31.0-36.0) g/dl RDW 15.7 (11.0-16.0) % Plt Count 69 L (160-400) X10*3/uL MPV 10.5 (9.4-12.4) fL Immature Gran % (Auto) 0.3 (0.0-0.4) % Neut % (Auto) 42.6 L (45-73) % Lymph % (Auto) 39.5 (20-40) % Sevier % (Auto) 13.0 H (2-11) % Eos % (Auto) 3.3 (0-4) % Baso % (Auto) 1.3 (0-2) % Lymph # (Auto) 1.2 (1.2-4.9) X10*3/uL Sevier # (Auto) 0.4 (0.1-1.2) X10*3/uL Eos # (Auto) 0.1 (0.0-0.4) X10*3/uL Baso # (Auto) 0.0 (0.0-0.2) X10*3/uL Abs Immat Gran (auto) 0.01 (0.00-0.03) X10*3/uL Absolute Neuts (auto) 1.3 L (2.0-8.3) x10*3/uL Absolute Nucleated RBC 0.000 (0.0-0.012) X10*3/uL Nucleated RBC % (auto) 0.0 (0.0-0.2) /100WBC Sodium 139 (135-145) mmol/L Potassium 3.7 (3.3-5.1) mmol/L Chloride 110 H (96-108) mmol/L Carbon Dioxide 20 L (22-29) mmol/L Anion Gap 13 (12-20) BUN 9 (9-16) mg/dL Creatinine 0.72 (0.5-1.4) mg/dL Estim Creat Clear Calc 89.2 Estimated GFR > 60 Random Glucose 93 (60-115) mg/dL Calcium 8.5 (8.4-10.2) mg/dL Total Bilirubin 0.4 (0.0-1.0) mg/dL AST 77 H (5-37) U/L ALT 16 (0-40) U/L Alkaline Phosphatase 143 H (39-117) U/L Total Protein 8.2 H (6.5-8.0) g/dL Albumin 3.5 (3.5-5.0) g/dL Ethyl Alcohol 369 H* mg/dL External Record Review External record reviewed: Inpatient record and Outpatient record Social Determinants Patient?s care significantly limited by Social Determinants of Health including: Alcoholism and drug addiction in family Discharge Plan Discharge Clinical Impression: Alcohol use disorder Patient Disposition: Still a Patient Prescriptions: No Action acetaminophen [Tylenol] 325 mg capsule 325 mg PO Q4H PRN (Reason: pain) Qty: 30 0RF multivitamin [Daily-Barry] Tablet 1 tab PO DAILY Qty: 90 0RF folic acid 1 mg Tablet 1 mg PO DAILY Qty: 90 0RF thiamine HCl (vitamin B1) 100 mg tablet 100 mg PO DAILY Qty: 90 0RF amoxicillin-pot clavulanate 875-125 mg tablet 1 tab PO BID Qty: 8 0RF azithromycin 250 mg tablet See Rx Instructions .ROUTE .COMPLEX Qty: 6 0RF Rx Instructions: For 250 mg dose pack: take 500 mg today (day 1), then 250 mg for 4 days (days 2-5) doxycycline hyclate 100 mg capsule 100 mg PO BID 7 Days Qty: 14 0RF Print Language: Hong Konger
[2024-05-14 17:15] LABS: MANUAL DIFF FLAG NO
[2024-05-14 17:31] LABS: Alanine Aminotransferase 16 U/L (0-40); Albumin Level 3.5 g/dL (3.5-5.0); Alkaline Phosphatase 143 U/L (39-117); Anion Gap 13 (12-20); Aspartate Amino Transferase 77 U/L (5-37); Bilirubin Total 0.4 mg/dL (0.0-1.0); Blood Urea Nitrogen 9 mg/dL (9-16); Calcium 8.5 mg/dL (8.4-10.2); Carbon Dioxide 20 mmol/L (22-29); Chloride 110 mmol/L (96-108); Creatinine Clr Calc Pharmacy 89.2; Estimated Glomerular Filt Rate > 60; Ethanol 369 mg/dL; Glucose Random 93 mg/dL (60-115); Potassium 3.7 mmol/L (3.3-5.1); Sodium 139 mmol/L (135-145); Total Protein 8.2 g/dL (6.5-8.0)
[2024-05-14 17:59] LABS: Basophils Percent Auto 1.3 % (0-2); Eosinophils Absolute Auto 0.1 X10*3/uL (0.0-0.4); Eosinophils Percent Auto 3.3 % (0-4); Hematocrit 30.1 % (42.0-52.0); Hemoglobin 9.9 g/dl (14.0-18.0); Imm Gran Abs Auto 0.01 X10*3/uL (0.00-0.03); Imm Gran Pct Auto 0.3 % (0.0-0.4); Lymphocytes Absolute Auto 1.2 X10*3/uL (1.2-4.9); Lymphocytes Percent Auto 39.5 % (20-40); Mean Corpuscular HGB Conc 32.9 g/dl (31.0-36.0); Mean Corpuscular Hemoglobin 30.8 pg (27.0-33.0); Mean Corpuscular Volume 93.8 fL (80.0-98.0); Mean Platelet Volume 10.5 fL (9.4-12.4); Monocytes Absolute Auto 0.4 X10*3/uL (0.1-1.2); Neutrophils Absolute Auto 1.3 x10*3/uL (2.0-8.3); Neutrophils Percent Auto 42.6 % (45-73); Platelet Count 69 X10*3/uL (160-400); Red Blood Count 3.21 X10*6/uL (4.60-5.80); Red Cell Distribution Width 15.7 % (11.0-16.0)
[2024-05-14 20:16] VITALS: BP 122/64; PULSE 80; RESP 16; TEMP 37.1; O2SAT 95
--- NOTE | 2024-05-14 20:38 | MHC.EDTECH ---
Emptied 650MLS of clear yellow urine from urinal.
[2024-05-15] VITALS: BP 119/61; PULSE 76; RESP 16; TEMP 36.9; O2SAT 97
[2024-05-15 05:15] VITALS: BP 117/70; PULSE 54; RESP 16; TEMP 36.8; O2SAT 96
[2024-05-15 07:39] VITALS: BP 117/70; PULSE 54; RESP 16; TEMP 36.8; O2SAT 96
== END 2024-05-15 07:40 | disposition home or self-care (01) ==
PROVIDERS: Nurse Practitioner Family; Emergency Provider Internal Medicine
DX: F10.90 Alcohol use, unspecified, uncomplicated (principal); Y90.9 Presence of alcohol in blood, level not specified; M79.605 Pain in left leg; I50.9 Heart failure, unspecified
CPT/HCPCS: 36415; 80053; 80307; 85025; 99283; 99284

== ENCOUNTER 2024-05-16 14:34 | Emergency (ER) | payer MEDICAID, SELFPAY ==
[2024-05-16 14:38] VITALS: BP 106/72; PULSE 84; O2SAT 95
[2024-05-16 14:41] VITALS: BP 99/46; PULSE 84; RESP 18; TEMP 36.9; O2SAT 91; BMI 19.4
--- NOTE | 2024-05-16 14:41 | ED.GENADULT ---
HPI - General Adult General Chief complaint: ETOH/Substance Use Stated complaint: ETOH Time Seen by Provider: 05/16/24 14:41 Source: patient and EMS Mode of arrival: EMS Limitations: no limitations History of Present Illness ED Provider: Abril Sam PA-C HPI narrative: Patient is a 54 year old assigned male at with a history of alcohol abuse presenting to the emergency department today with alcohol intoxication. Patient states that he has been drinking today and does not have any complaints. Patient denies any dizziness, lightheadedness, abdominal pain, nausea, vomiting, fever, chills, blurry vision, double vision, loss of vision, chest pain, difficulty breathing, shortness of breath, back pain, night sweats, pain with urination, increased urinary frequency, increased urinary urgency, blood in his urine or stool, syncope or a near syncopal episode, recent trauma or falls, bowel incontinence, bladder incontinence, or any other complaints at this time. Relieving factors: none Exacerbating factors: none Associated symptoms: denies other symptoms Treatments prior to arrival: none Related Data Previous Rx's ?Medication ?Instructions ?Recorded acetaminophen 325 mg capsule 325 mg PO Q4H PRN pain #30 caps 03/13/24 (Tylenol) amoxicillin 875 mg-potassium 1 tab PO BID #8 tabs 05/05/24 clavulanate 125 mg tablet folic acid 1 mg tablet 1 mg PO DAILY #90 tabs 05/05/24 multivitamin (Daily-Barry tablet) 1 tab PO DAILY #90 tabs 05/05/24 thiamine HCl (vitamin B1) 100 mg 100 mg PO DAILY #90 tabs 05/05/24 tablet azithromycin 250 mg tablet See Rx Instructions PO .COMPLEX #6 05/11/24 tabs doxycycline hyclate 100 mg capsule 100 mg PO BID 7 days #14 caps 05/11/24 Allergies Allergy/AdvReac Type Severity Reaction Status Date / Time No Known Allergies Allergy Verified 05/16/24 14:43 [No Known Allergies*] Review of Systems Constitutional: Constitutional: Reports no additional constitutional complaints, Denies chills, Denies fever(s) and Denies night sweats Eyes: Eyes: Reports no additional eye complaints, Denies blurry vision, Denies change in vision, Denies diplopia, Denies eye discharge, Denies loss of vision and Denies eye pain ENT: Denies dizziness Cardiovascular: Cardiovascular: Reports no additional cardiovascular complaints, Denies chest pain, Denies lightheadedness, Denies Loss of Consciousness and Denies dyspnea Respiratory: Respiratory: Reports no additional respiratory complaints and Denies dyspnea Gastrointestinal: Gastrointestinal: Reports no additional gastrointestinal complaints, Denies abdominal pain, Denies melena, Denies hematochezia, Denies change in bowel habits and Denies change in stool character Genitourinary: Genitourinary: Reports no additional male genitourinary complaints, Denies hematuria, Denies oliguria, Denies difficulty urinating, Denies dysuria, Denies urinary frequency, Denies urinary hesitancy, Denies urinary incontinence and Denies urinary urgency Musculoskeletal: Musculoskeletal: Reports no additional musculoskeletal complaints, Denies numbness and Denies tingling Neurologic: Denies dizziness, Denies loss of vision, Denies numbness and Denies tingling Psychiatric: Psychiatric: Reports no additional psychiatric complaints Endocrine: Endocrine: Reports no additional endocrine complaints Hematologic/Lymphatic: Hematologic/Lymphatic: Reports no additional hematologic/lymphatic complaints Allergic/Immunologic: Allergic/Immunologic: Reports no additional allergic/immunologic complaints [facility] Past Medical History Attestation statement: The following information was validated with the patient. Source: old records reviewed and nursing notes reviewed Medical History Thrombocytopenia Alcohol withdrawal syndrome Cirrhosis Malnutrition CHF (congestive heart failure) Anemia Aspiration pneumonia Pneumonia Hypomagnesemia Thrombocytopenia Alcoholic liver disease Acute on chronic anemia CHF (congestive heart failure) Anemia Alcohol abuse Surgical History No history of previous surgery Social History Social History Household Members: None Household Members Other:: pt homeless Housing: Homeless Housing Other:: homeless Do you presently have visiting nurse or other home services: No Unable to assess alcohol history related to: Refusing to respond Alcohol intake: current Alcohol intake frequency: 3 or more drinks per day Alcohol type: beer Comment: 1 assist to bathroom Patient Tobacco Use Status: Former Tobacco user Tobacco use type: Cigarette Second Hand Smoke Exposure: No Use of substances other than those prescribed or required for medical reasons: No Advance Directives: Yes Advance Directives on File: Yes Advance Directives Date on File: 07/13/23 Do you have a plan to hurt others: No Plan service: No Physical Exam ED Vital Signs: Vital Signs - 24 hr 05/16/24 14:41 Temperature 98.4 F Pulse Rate 84 Respiratory Rate 18 Blood Pressure 99/46 L Pulse Oximetry 91 L Oxygen Delivery Method Room Air BMI result Body Mass Index 19.4 Const General: cooperative, no acute distress, alert and awake Nutritional Appearance: well nourished Orientation/consciousness: patient oriented x3 Limitations: no limitations HENMT Head: Yes normal to inspection and Yes atraumatic Ears: hearing grossly normal bilaterally and external ears normal General nose exam: Normal external nose present, no nasal discharge noted and no epistaxis Face and sinus: Yes normal facial exam, No abrasion and No laceration Mouth: Normal oral and palatal mucosa present, no drooling and no muffled voice Eyes General: appearance normal, both eyes and all related structures Periorbital: periorbital findings normal Eyelids: Yes eyelids normal Conjunctivae: conjunctivae normal Pupils: Equal, round and reactive pupils present EOM: EOMs intact bilaterally Neck Neck: Yes normal visual inspection, Yes full ROM and Yes no lymphadenopathy Chest Chest palpation & inspection: normal inspection of the chest Resp Effort & Inspection: normal respiratory effort and able to speak in complete sentences GI Inspection: Yes normal to inspection Neuro General: patient oriented x3 and moves all extremities Cranial nerves: Yes Equal, round and reactive pupils present Cognition (Neuro): normal cognition Extrem General: Yes normal to inspection, Yes full ROM and Yes capillary refill normal Psych Appearance: grossly normal Mental Status: mental status grossly normal Affect: normal affect Attitude: cooperative Thought process: Normal thought process present Thought content: Normal thought content present Insight: Good insight present (Psych) Medical Decision Making Medical Decision Making MDM Narrative: Patient is a 54 year old assigned male at with a history of alcohol intoxication presenting to the emergency department today with intoxication. Patient's physical exam was unremarkable. I explained my physical exam findings to the patient. I answered all questions asked by the patient. I stressed the importance of the patient taking his medication as directed (either prescribed or as the over the counter packaging recommends). I stressed the importance of the patient following up with his primary care provider. I stressed the importance of the patient returning to the emergency department immediately if his symptoms were to worsen or if he were to develop any dizziness, shortness of breath, difficulty breathing, chest pain, blurry vision, loss of vision, nausea, vomiting, abdominal pain, fever, chills, back pain, or any other complaints. Patient verbalized agreement and understanding with this treatment plan and discharge. Differential Diagnosis Differential Diagnoses: The differential diagnosis associated with the presentation includes Alcohol intoxication Admission/Observation Consideration of admission/observation: Escalation of care including admission/observation considered Patient would have been admitted to the hospital had his clinical presentation warranted hospital admission. Independent Historian Clinical information obtained from an independent historian. History obtained from or confirmed by: EMS (EMS provided additional history and confirmed the history provided by the patient.) Discharge Plan Discharge Clinical Impression: Alcohol use disorder Patient Disposition: Still a Patient Prescriptions: No Action acetaminophen [Tylenol] 325 mg capsule 325 mg PO Q4H PRN (Reason: pain) Qty: 30 0RF multivitamin [Daily-Barry] Tablet 1 tab PO DAILY Qty: 90 0RF folic acid 1 mg Tablet 1 mg PO DAILY Qty: 90 0RF thiamine HCl (vitamin B1) 100 mg tablet 100 mg PO DAILY Qty: 90 0RF amoxicillin-pot clavulanate 875-125 mg tablet 1 tab PO BID Qty: 8 0RF azithromycin 250 mg tablet See Rx Instructions .ROUTE .COMPLEX Qty: 6 0RF Rx Instructions: For 250 mg dose pack: take 500 mg today (day 1), then 250 mg for 4 days (days 2-5) doxycycline hyclate 100 mg capsule 100 mg PO BID 7 Days Qty: 14 0RF Print Language: Kiswahili
[2024-05-16 16:33] VITALS: BP 107/65; PULSE 82; RESP 16; TEMP 36.8; O2SAT 95
--- NOTE | 2024-05-16 16:39 | MHC.EDTECH ---
THIS PCT ASSUMED CARE OF PATIENT AT 1500 ,PATIENT WAS ASLEEP ,WOKE UP VITALS TAKEN ,PATIENT VOID 450 ML URINAL EMPTY ,PATIENT BACK SLEEPING .
--- NOTE | 2024-05-16 17:54 | PC.NURSE ---
Alert and responsive, resting comfortably in bed breathing even and unlabored , vss. No s/s of withdrawal at this time
--- NOTE | 2024-05-16 20:18 | PC.NURSE ---
ambulated with steady gait in ED, provider aware
[2024-05-16 21:57] VITALS: BP 100/65; PULSE 88; RESP 16; TEMP 36.6; O2SAT 95
[2024-05-17 05:51] VITALS: BP 100/65; PULSE 88; RESP 16; TEMP 36.6; O2SAT 95
== END 2024-05-17 05:52 | disposition home or self-care (01) ==
PROVIDERS: Emergency Provider Emergency Medicine
DX: F10.129 Alcohol abuse with intoxication, unspecified (principal); Y90.9 Presence of alcohol in blood, level not specified; Z87.891 Personal history of nicotine dependence
CPT/HCPCS: 99284

== ENCOUNTER 2024-05-20 07:41 | Outpatient (REF) | payer MEDICAID, SELFPAY | END 2024-05-20 07:42 | disposition home or self-care (01) | LOC: HO.HOSX 07:41 | PROVIDERS: Visit Provider Physician Assistant | DX: Z13.89 Encounter for screening for other disorder (principal) ==

== ENCOUNTER 2024-05-21 15:53 | Emergency (ER) | payer MEDICAID, SELFPAY ==
[2024-05-21 16:08] VITALS: BP 105/55; BP 108/58; PULSE 80; PULSE 81; RESP 16; TEMP 36.9; O2SAT 88; O2SAT 98; BMI 20.6
--- NOTE | 2024-05-21 16:12 | PC.NURSE ---
SpO2 88% on RA upon arrival- pt denies substance use besides beer. Reports former smoker. 2L NC applied SpO2 increased to 95% on 2L.
--- NOTE | 2024-05-21 16:42 | ED_ITS ---
HPI - Alcohol General Chief Complaint: ETOH/Substance Use Stated Complaint: ETOH,LEG PAIN Time Seen by Provider: 05/21/24 16:16 Source: patient and EMS Mode of arrival: EMS Limitations: other History of Present Illness ED Provider: Dr. Alexandria Sweeney HPI narrative: Patient comes to the emergency room via ambulance for alcohol intoxication. Patient complaining of left ankle pain which has been present for several months. Patient states that he did not fall, denies any new injuries. Patient states that he is here because ?alcoholism . Patient denies SI or HI Related Data Previous Rx's ?Medication ?Instructions ?Recorded acetaminophen 325 mg capsule 325 mg PO Q4H PRN pain #30 caps 03/13/24 (Tylenol) amoxicillin 875 mg-potassium 1 tab PO BID #8 tabs 05/05/24 clavulanate 125 mg tablet folic acid 1 mg tablet 1 mg PO DAILY #90 tabs 05/05/24 multivitamin (Daily-Barry tablet) 1 tab PO DAILY #90 tabs 05/05/24 thiamine HCl (vitamin B1) 100 mg 100 mg PO DAILY #90 tabs 05/05/24 tablet azithromycin 250 mg tablet See Rx Instructions PO .COMPLEX #6 05/11/24 tabs doxycycline hyclate 100 mg capsule 100 mg PO BID 7 days #14 caps 05/11/24 Allergies Allergy/AdvReac Type Severity Reaction Status Date / Time No Known Allergies Allergy Verified 05/21/24 16:11 [No Known Allergies*] Review of Systems Review of Systems: Constitutional : No Weight loss, No Fever, No Chills, No Night Sweats, No Fatigue, No Malaise ENT/Mouth : No Hearing loss, No Ear Pain, No Nasal Congestion, No Sinus Pain, No Hoarseness, No sore throat, No Rhinorrhea, No Swallowing Difficulty Eyes: No Eye Pain, No Swelling, No Redness, No Foreign Body, No Discharge, No Vision Changes Cardiovascular : No Chest Pain, No SOB, No Dyspnea on Exertion, No Orthopnea, No Edema, No Palpitations Respiratory : No Cough, No Sputum, No Wheezing, No Smoke Exposure, No Dyspnea Gastrointestinal : No Nausea, No Vomiting, No Diarrhea, No Constipation, No abdominal Pain, No Hematochezia, No Melena Genitourinary : no irregular bleeding, No Dysuria, No Urinary Frequency, No Hematuria, No Urinary Incontinence, No Urgency, No Flank Pain, No Urinary Flow Changes, No Hesitancy Musculoskeletal : No joint pain, No Myalgias, No Joint Swelling Skin : No Skin Lesions, No rash Neuro : No Weakness, No Numbness, No Paresthesias, No Loss of Consciousness, No Dizziness, No Headache Psych : No Anxiety/Panic, No Depression, No SI/HI/AH/VH, No Social Issues, Heme/Lymph: No Bruising, No Bleeding,No Lymphadenopathy Endocrine : No Polyuria, No Polydipsia, No Temperature Intolerance [facility] Past Medical History Medical History Thrombocytopenia Alcohol withdrawal syndrome Cirrhosis Malnutrition CHF (congestive heart failure) Anemia Aspiration pneumonia Pneumonia Hypomagnesemia Thrombocytopenia Alcoholic liver disease Acute on chronic anemia CHF (congestive heart failure) Anemia Alcohol abuse Surgical History No history of previous surgery Social History Social History Household Members: None Household Members Other:: pt homeless Housing: Homeless Housing Other:: homeless Do you presently have visiting nurse or other home services: No Unable to assess alcohol history related to: Refusing to respond Alcohol intake: current Alcohol intake frequency: 3 or more drinks per day Alcohol type: beer Comment: 1 assist to bathroom Patient Tobacco Use Status: Former Tobacco user Tobacco use type: Cigarette Second Hand Smoke Exposure: No Advance Directives: Yes Advance Directives on File: Yes Advance Directives Date on File: 07/13/23 Do you have a plan to hurt others: No Plan service: No Physical Exam ED Vital Signs: Vital Signs - 24 hr 05/21/24 16:08 Temperature 98.4 F Pulse Rate 81 Respiratory Rate 16 Blood Pressure 105/55 L Pulse Oximetry 88 L Oxygen Delivery Method Room Air BMI result Body Mass Index 20.6 Course Course Course Narrative: -all of patient's labs pending Discharge Plan Discharge Clinical Impression: Alcoholic intoxication Patient Disposition: Still a Patient Prescriptions: No Action acetaminophen [Tylenol] 325 mg capsule 325 mg PO Q4H PRN (Reason: pain) Qty: 30 0RF multivitamin [Daily-Barry] Tablet 1 tab PO DAILY Qty: 90 0RF folic acid 1 mg Tablet 1 mg PO DAILY Qty: 90 0RF thiamine HCl (vitamin B1) 100 mg tablet 100 mg PO DAILY Qty: 90 0RF amoxicillin-pot clavulanate 875-125 mg tablet 1 tab PO BID Qty: 8 0RF azithromycin 250 mg tablet See Rx Instructions .ROUTE .COMPLEX Qty: 6 0RF Rx Instructions: For 250 mg dose pack: take 500 mg today (day 1), then 250 mg for 4 days (days 2-5) doxycycline hyclate 100 mg capsule 100 mg PO BID 7 Days Qty: 14 0RF Print Language: Luxembourgish
[2024-05-21 16:51] LABS: MANUAL DIFF FLAG NO
[2024-05-21 17:04] LABS: Basophils Percent Auto 1.1 % (0-2); Eosinophils Absolute Auto 0.1 X10*3/uL (0.0-0.4); Eosinophils Percent Auto 3.8 % (0-4); Hematocrit 31.6 % (42.0-52.0); Imm Gran Abs Auto 0.01 X10*3/uL (0.00-0.03); Imm Gran Pct Auto 0.3 % (0.0-0.4); Lymphocytes Absolute Auto 1.1 X10*3/uL (1.2-4.9); Lymphocytes Percent Auto 29.4 % (20-40); Mean Corpuscular HGB Conc 31.6 g/dl (31.0-36.0); Mean Corpuscular Hemoglobin 29.8 pg (27.0-33.0); Mean Platelet Volume 11.8 fL (9.4-12.4); Monocytes Absolute Auto 0.5 X10*3/uL (0.1-1.2); Monocytes Percent Auto 12.5 % (2-11); Neutrophils Absolute Auto 1.9 x10*3/uL (2.0-8.3); Neutrophils Percent Auto 52.9 % (45-73); Red Blood Count 3.36 X10*6/uL (4.60-5.80); Red Cell Distribution Width 15.7 % (11.0-16.0); White Blood Count 3.7 X10*3/uL (4.8-10.8)
[2024-05-21 17:09] LABS: Alanine Aminotransferase 16 U/L (0-40); Albumin Level 3.6 g/dL (3.5-5.0); Alkaline Phosphatase 132 U/L (39-117); Anion Gap 16 (12-20); Aspartate Amino Transferase 70 U/L (5-37); Bilirubin Direct 0.3 mg/dL (0.0-0.5); Bilirubin Total 0.8 mg/dL (0.0-1.0); Blood Urea Nitrogen 8 mg/dL (9-16); Calcium 8.9 mg/dL (8.4-10.2); Carbon Dioxide 18 mmol/L (22-29); Chloride 112 mmol/L (96-108); Estimated Glomerular Filt Rate > 60; Ethanol 348 mg/dL; Glucose Random 93 mg/dL (60-115); Magnesium 1.9 mg/dL (1.6-2.6); Potassium 3.6 mmol/L (3.3-5.1); Sodium 142 mmol/L (135-145); Total Protein 8.5 g/dL (6.5-8.0)
[2024-05-21 17:16] LABS: INTERNATIONAL NORM RATIO 1.3 (0.9-1.1); Prothrombin Time 15.5 SEC (11.1-13.3)
[2024-05-21 17:36] LABS: Platelet Count 58 X10*3/uL (160-400)
--- NOTE | 2024-05-21 18:10 | PC.NURSE ---
Pt resting comfortably, NAD, respirations even unlabored, awaiting results and MD reeval.
[2024-05-21 18:11] VITALS: BP 104/50; PULSE 73; RESP 18; TEMP 36.9; O2SAT 96
--- NOTE | 2024-05-21 18:58 | PC.NURSE ---
Report given to Rosalva RN, pt exits my care at this time.
[2024-05-21 20:51] VITALS: BP 104/52; PULSE 68; RESP 20; TEMP 36.6; O2SAT 97
[2024-05-22 00:49] VITALS: BP 100/53; PULSE 70; RESP 16; TEMP 36.1; O2SAT 96
[2024-05-22 02:31] VITALS: BP 108/50; PULSE 71; RESP 16; TEMP 36.4; O2SAT 94
[2024-05-22 04:36] VITALS: BP 105/51; PULSE 70; RESP 16; TEMP 36.4; O2SAT 97
[2024-05-22 06:00] VITALS: BP 127/71; PULSE 68; RESP 16; TEMP 36.6; O2SAT 95
[2024-05-22 08:18] VITALS: BP 127/71; PULSE 65; RESP 16; TEMP 36.5; O2SAT 95
== END 2024-05-22 08:19 | disposition home or self-care (01) ==
PROVIDERS: Emergency Provider Emergency Medicine
DX: F10.129 Alcohol abuse with intoxication, unspecified (principal); M25.572 Pain in left ankle and joints of left foot; Y90.8 Blood alcohol level of 240 mg/100 ml or more; I50.9 Heart failure, unspecified
CPT/HCPCS: 36415; 80048; 80076; 80307; 83735; 85025; 85610; 99283; 99284

== ENCOUNTER 2024-05-27 16:12 | Emergency (ER) | payer MEDICAID, SELFPAY ==
[2024-05-27 16:17] VITALS: BP 135/74; BP 143/58; PULSE 80; PULSE 83; RESP 18; TEMP 35.7; O2SAT 94; O2SAT 98; BMI 20.4
[2024-05-27 16:26] VITALS: BP 143/58; PULSE 83; RESP 18; TEMP 35.7; O2SAT 98
--- NOTE | 2024-05-27 16:58 | ED_ITS ---
HPI - Alcohol General Chief Complaint: ETOH/Substance Use Stated Complaint: ETOH, FEELING FUNNY PER EMS Time Seen by Provider: 05/27/24 16:29 Source: patient and EMS Mode of arrival: EMS Limitations: other (Alcohol intoxication) History of Present Illness HPI narrative: Patient is a 54-year-old male who presents to the emergency department via EMS for evaluation. He was found wandering outside, admits to having consumed [employer] (a large volume beer) and vodka . He offers no physical complaints at this time. He is requesting more vodka, he was offered water and food which he accepted willingly. Related Data Previous Rx's ?Medication ?Instructions ?Recorded acetaminophen 325 mg capsule 325 mg PO Q4H PRN pain #30 caps 03/13/24 (Tylenol) amoxicillin 875 mg-potassium 1 tab PO BID #8 tabs 05/05/24 clavulanate 125 mg tablet folic acid 1 mg tablet 1 mg PO DAILY #90 tabs 05/05/24 multivitamin (Daily-Barry tablet) 1 tab PO DAILY #90 tabs 05/05/24 thiamine HCl (vitamin B1) 100 mg 100 mg PO DAILY #90 tabs 05/05/24 tablet azithromycin 250 mg tablet See Rx Instructions PO .COMPLEX #6 05/11/24 tabs doxycycline hyclate 100 mg capsule 100 mg PO BID 7 days #14 caps 05/11/24 Allergies Allergy/AdvReac Type Severity Reaction Status Date / Time No Known Allergies Allergy Verified 05/27/24 16:25 [No Known Allergies*] Review of Systems Review of Systems: Yes all other systems are reviewed and are negative PMFSH Past Medical History Attestation statement: The following information was validated with the patient. Source: old records reviewed Medical History Thrombocytopenia Aspiration pneumonia Malnutrition CHF (congestive heart failure) Anemia Hypomagnesemia Cirrhosis Thrombocytopenia Alcoholic liver disease Acute on chronic anemia CHF (congestive heart failure) Anemia Pneumonia Alcohol abuse Alcohol withdrawal syndrome Surgical History No history of previous surgery Social History Social History Household Members: None Household Members Other:: pt homeless Housing: Homeless Housing Other:: homeless Do you presently have visiting nurse or other home services: No Unable to assess alcohol history related to: Refusing to respond Alcohol intake: current Alcohol intake frequency: 3 or more drinks per day Alcohol type: hard liquor Comment: 1 assist to bathroom Patient Tobacco Use Status: Former Tobacco user Tobacco use type: Cigarette Second Hand Smoke Exposure: No Use of substances other than those prescribed or required for medical reasons: No Advance Directives: Yes Advance Directives on File: Yes Advance Directives Date on File: 07/13/23 Do you have a plan to hurt others: No Plan service: No Physical Exam ED Vital Signs: Vital Signs - 24 hr 05/27/24 16:17 05/27/24 16:26 05/27/24 20:00 Temperature 96.2 F L 96.2 F L 97.1 F Pulse Rate 83 83 75 Respiratory Rate 18 18 14 Blood Pressure 143/58 H 143/58 H 137/62 Pulse Oximetry 98 98 94 Oxygen Delivery Method Room Air Room Air Room Air 05/27/24 22:00 05/28/24 00:00 Temperature 98.3 F 97.0 F Pulse Rate 81 85 Respiratory Rate 16 16 Blood Pressure 141/60 H 136/58 L Pulse Oximetry 96 99 Oxygen Delivery Method Room Air Room Air BMI result Body Mass Index 20.4 Appearance: Alert.?Oriented to person, place and time. No acute distress.?Normal affect. Eyes: Pupils equal, round and reactive to light.? ENT: Pharynx normal.?? Neck: Normal inspection.? Neck supple.?? CVS: Heart sounds normal. Normal heart rate and rhythm.? Pulses normal.?? Respiratory: No respiratory distress.? Lung sounds clear to auscultation bilaterally?? Abdomen: Soft and non-tender. Normoactive bowel sounds. No pulsatile mass.?? Skin: Skin warm and dry.? Normal skin color.? Normal skin turgor.?? Extremities: Nonpitting edema to left ankle and proximal midfoot. 2+ DP/PT pulse. No calf tenderness upon palpation. No erythema or warmth? Neuro: Moves all extremities spontaneously. Sensation intact bilaterally. Medical Decision Making Medical Decision Making MDM Narrative: Patient is a 54-year-old male with past medical history of alcohol use disorder, thrombocytopenia, cirrhosis, CHF, anemia, aspiration pneumonia, presenting to emergency department via EMS for evaluation, appears acutely intoxicated admitting to ETOH consumption prior to arrival, and offered no physical complaints at this time. Physical examination is overall benign at this time aside from non pitting edema to the left ankle and proximal mid foot which is chronic. Although he has been complaints, he is clinically sober and able to be discharged safely. Differential Diagnosis Differential Diagnoses: The differential diagnosis associated with the presentation includes (See narrative below) Admission/Observation Consideration of admission/observation: Escalation of care including admission/observation considered Patient is being observed in the Emergency Department for encephalopathy. Observation time was started at 17:03 on 05/27/2024.?The patient is currently stable and non-toxic appearing. Observation is being initiated in the Emergency Department to allow time to help differentiate if the patient?s encephalopathy is due to alcohol intoxication and polysubstance abuse versus stroke, transient ischemic attack, major depression, overdose of medication, arrhythmia, seizure, or closed head injury/concussion. The patient will receive frequent assessments from the provider as well as the nursing staff. The patient will be monitored for the need for diagnostic imaging such as a CT head, MRI brain, chest x-ray, and serial EKGs to evaluate for prolonged QTc intervals. The patient will also be monitored for the need of PRN agitation medications such as Haldol, Ativan, and Benadryl. Lab Data MDM Lab Attestation statement: I reviewed the patient's lab results. Labs: Lab Results 05/27/24 Range/Units 17:15 Hold Purple Top SEE NOTE Ethyl Alcohol 386 H* mg/dL Independent Historian Clinical information obtained from an independent historian. History obtained from or confirmed by: EMS External Record Review External record reviewed: Outpatient record Discharge Plan Discharge Clinical Impression: Alcoholic intoxication Patient Disposition: Still a Patient Prescriptions: No Action acetaminophen [Tylenol] 325 mg capsule 325 mg PO Q4H PRN (Reason: pain) Qty: 30 0RF multivitamin [Daily-Barry] Tablet 1 tab PO DAILY Qty: 90 0RF folic acid 1 mg Tablet 1 mg PO DAILY Qty: 90 0RF thiamine HCl (vitamin B1) 100 mg tablet 100 mg PO DAILY Qty: 90 0RF amoxicillin-pot clavulanate 875-125 mg tablet 1 tab PO BID Qty: 8 0RF azithromycin 250 mg tablet See Rx Instructions .ROUTE .COMPLEX Qty: 6 0RF Rx Instructions: For 250 mg dose pack: take 500 mg today (day 1), then 250 mg for 4 days (days 2-5) doxycycline hyclate 100 mg capsule 100 mg PO BID 7 Days Qty: 14 0RF Print Language: [place]
[2024-05-27 17:33] LABS: Ethanol 386 mg/dL
[2024-05-27 20:00] VITALS: BP 137/62; PULSE 75; RESP 14; TEMP 36.2; O2SAT 94
[2024-05-27 22:00] VITALS: BP 141/60; PULSE 81; RESP 16; TEMP 36.8; O2SAT 96
[2024-05-28] VITALS: BP 136/58; PULSE 85; RESP 16; TEMP 36.1; O2SAT 99
[2024-05-28 05:48] VITALS: BP 136/58; PULSE 85; RESP 16; TEMP 36.1; O2SAT 99
== END 2024-05-28 05:52 | disposition home or self-care (01) ==
PROVIDERS: Nurse Practitioner Family; Emergency Provider Emergency Medicine
DX: F10.129 Alcohol abuse with intoxication, unspecified (principal); Y90.8 Blood alcohol level of 240 mg/100 ml or more; Z87.891 Personal history of nicotine dependence; Z79.899 Other long term (current) drug therapy
CPT/HCPCS: 36415; 80307; 99284

== ENCOUNTER 2024-06-04 10:28 | Emergency (ER) | payer MEDICAID, SELFPAY ==
[2024-06-04 10:36] VITALS: BP 110/70; PULSE 66; O2SAT 98
[2024-06-04 10:46] VITALS: BP 134/82; PULSE 67; RESP 18; TEMP 36.6; O2SAT 98; BMI 21.8
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
--- NOTE | 2024-06-04 11:21 | ED_ITS ---
HPI - Alcohol General Chief Complaint: ETOH/Substance Use Stated Complaint: ETOH Time Seen by Provider: 06/04/24 11:09 Source: patient, EMS, RN notes reviewed and old records reviewed Mode of arrival: EMS History of Present Illness ED Provider: Marine Machuca PA-C HPI narrative: 54-year-old male with a past medical history of CHF, anemia, cirrhosis, ETOH abuse, presenting to the ED via EMS for ETOH intoxication and unsteady gait. Patient admits to drinking 5 or 6 of those & a half a pint of vodka. Reports last drink this morning when liquor store opened. Denies injury/fall. Does report left hip pain, acute on chronic however denies known injury. Denies SI. States he needs another beer MD complaint: alcohol intoxication Related Data Previous Rx's ?Medication ?Instructions ?Recorded acetaminophen 325 mg capsule 325 mg PO Q4H PRN pain #30 caps 03/13/24 (Tylenol) amoxicillin 875 mg-potassium 1 tab PO BID #8 tabs 05/05/24 clavulanate 125 mg tablet folic acid 1 mg tablet 1 mg PO DAILY #90 tabs 05/05/24 multivitamin (Daily-Barry tablet) 1 tab PO DAILY #90 tabs 05/05/24 thiamine HCl (vitamin B1) 100 mg 100 mg PO DAILY #90 tabs 05/05/24 tablet azithromycin 250 mg tablet See Rx Instructions PO .COMPLEX #6 05/11/24 tabs doxycycline hyclate 100 mg capsule 100 mg PO BID 7 days #14 caps 05/11/24 Allergies Allergy/AdvReac Type Severity Reaction Status Date / Time No Known Allergies Allergy Verified 06/04/24 10:47 [No Known Allergies*] Review of Systems Review of Systems: ROS limited due to patient's acute intoxication Yes all other systems are reviewed and are negative Constitutional: Constitutional: Reports as per [facility] Past Medical History Attestation statement: The following information was validated with the patient. Source: old records reviewed Medical History Thrombocytopenia Aspiration pneumonia Malnutrition CHF (congestive heart failure) Anemia Hypomagnesemia Cirrhosis Thrombocytopenia Alcoholic liver disease Acute on chronic anemia CHF (congestive heart failure) Anemia Pneumonia Alcohol abuse Alcohol withdrawal syndrome Surgical History No history of previous surgery Social History Social History Household Members: None Household Members Other:: pt homeless Housing: Homeless Housing Other:: homeless Do you presently have visiting nurse or other home services: No Unable to assess alcohol history related to: Refusing to respond Alcohol intake: current Alcohol intake frequency: 3 or more drinks per day Alcohol type: beer and hard liquor Comment: 1 assist to bathroom Patient Tobacco Use Status: Former Tobacco user Tobacco use type: Cigarette Second Hand Smoke Exposure: No Advance Directives: Yes Advance Directives on File: Yes Advance Directives Date on File: 07/13/23 Do you have a plan to hurt others: No Plan service: No Physical Exam ED Vital Signs: Vital Signs - 24 hr 06/04/24 10:46 Temperature 98 F Pulse Rate 67 Respiratory Rate 18 Blood Pressure 134/82 Pulse Oximetry 98 Oxygen Delivery Method Room Air BMI result Body Mass Index 21.8 Const Other: + EtOH odor on breath General: cooperative and no acute distress Orientation/consciousness: patient oriented x3 Limitations: no limitations HENMT Head: Yes normal to inspection and Yes atraumatic Ears: hearing grossly normal bilaterally General nose exam: Normal external nose present Face and sinus: Yes normal facial exam Eyes General: appearance normal, both eyes and all related structures EOM: EOMs intact bilaterally Neck Neck: Yes normal visual inspection and Yes no meningeal signs Resp Effort & Inspection: normal respiratory effort and no respiratory distress Cardio Rate: regular rate Heart sounds: S1 normal heart sound present and S2 normal heart sound present GI Inspection: Yes normal to inspection Palpation (GI): Soft to palpation, nontender, no guarding and not rigid Back/Spine/Pelvis Other: No midline cervical/thoracic/lumbar spinous tenderness/step-off or deformity Skin Rashes: no rashes Wounds: no wounds Neuro General: patient oriented x3, tone normal and no meningeal signs Cranial nerves: Yes CN's II-XII intact bilaterally Gait exam (Neuro): Normal gait present Extrem Other: pelvis stable, +mild left buttock tenderness. No left hip/pelvic deformity, erythema/ecchymosis or abrasions. General: Yes normal to inspection Course Course Course Narrative: -[id number]--patient awake and alert, ambulating with steady gait, safe for discharge at this time Results discussed with patient including worrisome signs and symptoms and strict return precautions, and when to return to the emergency department. They verbalized understanding and feel safe for discharge at this time. Medical Decision Making Medical Decision Making MDM Narrative: 54-year-old male with a past medical history of CHF, anemia, cirrhosis, ETOH abuse, presenting to the ED via EMS for ETOH intoxication and unsteady gait. On exam vital signs stable, NAD, EtOH odor on breath, no evidence of trauma, no midline spinous tenderness. Concern for ETOH intoxication. Lower suspicion for ICH or fractures Plan: Observe and re-evaluate for clinical sobriety/safe dispo home Physician observation initiated at 11:21 is patient needs more time for clinical sobriety Please refer to course for remaining clinical decision making, interpretation of labs/imaging results, and discussions with consultants and/or family members. Differential Diagnosis Differential Diagnoses: The differential diagnosis associated with the presentation includes As above Admission/Observation Consideration of admission/observation: Escalation of care including admission/observation considered Independent Historian Clinical information obtained from an independent historian. History obtained from or confirmed by: EMS External Record Review External record reviewed: Inpatient record, Office record, Outpatient record, Prior outpatient labs, Prior outpatient radiology, Primary care record and Outside ED record Tests considered The following testing was considered but not selected: As above Social Determinants Patient?s care significantly limited by Social Determinants of Health including: Inadequate housing, Low income, Alcoholism and drug addiction in family and Problems related to primary support group Discharge Plan Discharge Clinical Impression: Alcoholic intoxication Patient Disposition: Still a Patient Prescriptions: No Action acetaminophen [Tylenol] 325 mg capsule 325 mg PO Q4H PRN (Reason: pain) Qty: 30 0RF multivitamin [Daily-Barry] Tablet 1 tab PO DAILY Qty: 90 0RF folic acid 1 mg Tablet 1 mg PO DAILY Qty: 90 0RF thiamine HCl (vitamin B1) 100 mg tablet 100 mg PO DAILY Qty: 90 0RF amoxicillin-pot clavulanate 875-125 mg tablet 1 tab PO BID Qty: 8 0RF azithromycin 250 mg tablet See Rx Instructions .ROUTE .COMPLEX Qty: 6 0RF Rx Instructions: For 250 mg dose pack: take 500 mg today (day 1), then 250 mg for 4 days (days 2-5) doxycycline hyclate 100 mg capsule 100 mg PO BID 7 Days Qty: 14 0RF Print Language: Kinyarwanda
--- NOTE | 2024-06-04 15:06 | PC.NURSE ---
patient remains sleeping on stretcher, respirations even and unlabored, no apparent distress
[2024-06-04 15:45] VITALS: BP 101/56; PULSE 76; RESP 16; TEMP 36.9; O2SAT 96
--- NOTE | 2024-06-04 15:47 | PC.NURSE ---
this RN woke patient up attempting to discharge, patient stating let me just stay until tomorrow educated patient that this is an emergency room and he is stable to be discharged at this time. patient ambulatory with steady gait via EDT, VSS. discharge paperwork signed
== END 2024-06-04 15:49 | disposition home or self-care (01) ==
PROVIDERS: Emergency Provider Emergency Medicine Emergency Medical Services
DX: F10.220 Alcohol dependence with intoxication, uncomplicated (principal); Y90.9 Presence of alcohol in blood, level not specified; Z79.899 Other long term (current) drug therapy
CPT/HCPCS: 99284

== ENCOUNTER 2024-06-04 22:11 | Emergency (ER) | payer MEDICAID, SELFPAY ==
[2024-06-04 22:20] VITALS: BP 134/72; BP 136/78; PULSE 78; PULSE 79; RESP 18; TEMP 36.6; O2SAT 94; O2SAT 95; BMI 19.9
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
[2024-06-05] VITALS: RESP 18
--- NOTE | 2024-06-05 00:32 | PC.NURSE ---
Pt sleeping at the bedside. No apparent distress noted. Breaths are even regular and unlabored with equal chest rises. Monitoring is ongoing.
[2024-06-05 06:24] VITALS: BP 100/55; PULSE 78; RESP 16; TEMP 37.1; O2SAT 95
[2024-06-05 07:56] VITALS: BP 100/55; PULSE 78; RESP 16; TEMP 37.1; O2SAT 95
== END 2024-06-05 07:57 | disposition home or self-care (01) ==
PROVIDERS: Emergency Provider Emergency Medicine
DX: F10.220 Alcohol dependence with intoxication, uncomplicated (principal); Y90.9 Presence of alcohol in blood, level not specified
CPT/HCPCS: 99283

== ENCOUNTER 2024-06-05 18:35 | Emergency (ER) | payer MEDICAID, SELFPAY ==
--- NOTE | ~2024-06-05 | XR_ITS ---
EXAMINATION: XR ANKLE, LEFT CLINICAL INFORMATION: Worsening left ankle pain and swelling COMPARISON: Left ankle 04/27/2024 TECHNIQUE: AP, lateral, and mortise views of the left ankle. FINDINGS: Ankle mortise appears stable. No ankle joint effusion is seen. No acute fracture. Vascular calcifications are present. There is generalized osteopenia. The increased sclerotic band in the tibial metaphysis is less apparent on the current study. As recommended previously, MRI would be useful for this patient's persistent pain. XR/XR ankle LT 2V IMPRESSION: No acute finding. MRI would be useful for this patient's persistent pain.
--- NOTE | 2024-06-05 18:52 | ED_ITS ---
HPI - Alcohol General Chief Complaint: Extremity Injury, Lower Stated Complaint: etoh, ankle pain Time Seen by Provider: 06/05/24 18:38 Source: patient and EMS Mode of arrival: EMS Limitations: no limitations History of Present Illness ED Provider: Dr. Alexandria Sweeney HPI narrative: Patient comes to the emergency room by EMS. Once again, patient was found at the local fire station drinking alcohol. Paramedics were called. Patient states that he did not want to come to the ED. patient admits to drink alcohol. Patient denies using drugs. Patient denies any falls. Related Data Previous Rx's ?Medication ?Instructions ?Recorded acetaminophen 325 mg capsule 325 mg PO Q4H PRN pain #30 caps 03/13/24 (Tylenol) amoxicillin 875 mg-potassium 1 tab PO BID #8 tabs 05/05/24 clavulanate 125 mg tablet folic acid 1 mg tablet 1 mg PO DAILY #90 tabs 05/05/24 multivitamin (Daily-Barry tablet) 1 tab PO DAILY #90 tabs 05/05/24 thiamine HCl (vitamin B1) 100 mg 100 mg PO DAILY #90 tabs 05/05/24 tablet azithromycin 250 mg tablet See Rx Instructions PO .COMPLEX #6 05/11/24 tabs doxycycline hyclate 100 mg capsule 100 mg PO BID 7 days #14 caps 05/11/24 Allergies Allergy/AdvReac Type Severity Reaction Status Date / Time No Known Allergies Allergy Verified 06/05/24 19:19 [No Known Allergies*] Review of Systems Review of Systems: Constitutional : No Weight loss, No Fever, No Chills, No Night Sweats, No Fatigue, No Malaise ENT/Mouth : No Hearing loss, No Ear Pain, No Nasal Congestion, No Sinus Pain, No Hoarseness, No sore throat, No Rhinorrhea, No Swallowing Difficulty Eyes: No Eye Pain, No Swelling, No Redness, No Foreign Body, No Discharge, No Vision Changes Cardiovascular : No Chest Pain, No SOB, No Dyspnea on Exertion, No Orthopnea, No Edema, No Palpitations Respiratory : No Cough, No Sputum, No Wheezing, No Smoke Exposure, No Dyspnea Gastrointestinal : No Nausea, No Vomiting, No Diarrhea, No Constipation, No abdominal Pain, No Hematochezia, No Melena Genitourinary : no irregular bleeding, No Dysuria, No Urinary Frequency, No Hematuria, No Urinary Incontinence, No Urgency, No Flank Pain, No Urinary Flow Changes, No Hesitancy Musculoskeletal : Complaining of chronic left ankle pain No Myalgias, No Joint Swelling Skin : No Skin Lesions, No rash Neuro : No Weakness, No Numbness, No Paresthesias, No Loss of Consciousness, No Dizziness, No Headache Psych : No Anxiety/Panic, No Depression, No SI/HI/AH/VH, admits to drinking alcohol Heme/Lymph: No Bruising, No Bleeding,No Lymphadenopathy Endocrine : No Polyuria, No Polydipsia, No Temperature Intolerance [facility] Past Medical History Medical History Thrombocytopenia Aspiration pneumonia Malnutrition CHF (congestive heart failure) Anemia Hypomagnesemia Cirrhosis Thrombocytopenia Alcoholic liver disease Acute on chronic anemia CHF (congestive heart failure) Anemia Pneumonia Alcohol abuse Alcohol withdrawal syndrome Surgical History No history of previous surgery Social History Social History Household Members: None Household Members Other:: pt homeless Housing: Homeless Housing Other:: homeless Do you presently have visiting nurse or other home services: No Unable to assess alcohol history related to: Refusing to respond Alcohol intake: current Alcohol intake frequency: 3 or more drinks per day Alcohol type: beer and hard liquor Comment: 1 assist to bathroom Patient Tobacco Use Status: Former Tobacco user Tobacco use type: Cigarette Second Hand Smoke Exposure: No Advance Directives: Yes Advance Directives on File: Yes Advance Directives Date on File: 07/13/23 service: No Physical Exam ED Vital Signs: Vital Signs - 24 hr 06/05/24 19:23 Temperature 97.8 F Pulse Rate 82 Respiratory Rate 14 Blood Pressure 115/62 Pulse Oximetry 94 Oxygen Delivery Method Room Air BMI result Body Mass Index 27.5 Const Other: Appearance: Alert. Oriented X3. No acute distress. Eyes: Pupils equal, round and reactive to light. ENT: Pharynx normal. Neck: Normal inspection. Neck supple. No lymph nodes noted. No crepitus CVS: Normal heart rate and rhythm. Pulses normal. Normal S1 and S2 Respiratory: No respiratory distress. Breath sounds normal. No Wheezing. No ra les Abdomen: Soft and nontender. No rigidity. No distention. Skin: Skin warm and dry. Normal skin color. Normal skin turgor. Extremities: Patient's left ankle looks more swollen than yesterday when I saw the patient . Patient denies any new injuries.. No Lacerations. No Rash Neuro: Oriented X 3. No motor deficit. No sensory deficit. Moving all extremities. No slurred speech. CN 2 through 12 grossly intact Psych: calm, cooperative, normal affect Course Course Course Narrative: -x-ray of the foot pending. -Patient known to have a fracture. Patient has been given multiple times orthopedic shoes and follow-ups with orthopedics. However, patient never follows up. Patient states that he does not know what happened to his orthopedic shoes. Patient has lost approximately 5 shoes and some walking boots that has been provided to him. Medical Decision Making Medical Decision Making MDM Narrative: X-ray of the ankle: No fracture -patient awake, alert, intoxicated but still coherent, patient declined detox Plan: Metabolize to freedom -physician observation started at 22:00 Differential Diagnosis Differential Diagnoses: The differential diagnosis associated with the presentation includes (Patient is under physician observation, waiting to become more sober so he can be discharged home.) Discharge Plan Discharge Clinical Impression: Chronic ankle pain Alcoholic intoxication Qualifiers: Complication of substance-induced condition: uncomplicated Qualified Code(s): F10.920 - Alcohol use, unspecified with intoxication, uncomplicated Patient Disposition: Home, Self-Care Instructions: Alcohol Intoxication (ED), Arthralgia (ED) Additional Instructions: Please follow-up with your primary care physician tomorrow. If you have any worsening or new symptoms, please return to the emergency room or call 911 Prescriptions: No Action acetaminophen [Tylenol] 325 mg capsule 325 mg PO Q4H PRN (Reason: pain) Qty: 30 0RF multivitamin [Daily-Barry] Tablet 1 tab PO DAILY Qty: 90 0RF folic acid 1 mg Tablet 1 mg PO DAILY Qty: 90 0RF thiamine HCl (vitamin B1) 100 mg tablet 100 mg PO DAILY Qty: 90 0RF amoxicillin-pot clavulanate 875-125 mg tablet 1 tab PO BID Qty: 8 0RF azithromycin 250 mg tablet See Rx Instructions .ROUTE .COMPLEX Qty: 6 0RF Rx Instructions: For 250 mg dose pack: take 500 mg today (day 1), then 250 mg for 4 days (days 2-5) doxycycline hyclate 100 mg capsule 100 mg PO BID 7 Days Qty: 14 0RF Referrals: Richmond Jordan PA [Physician Weave Defect Charting Clerk] - 06/06/24 (Chronic ankle pain and swelling) Print Language: Venezuelan
[2024-06-05 19:10] VITALS: BP 138/70; PULSE 88
[2024-06-05 19:18] VITALS: BMI 27.5
[2024-06-05 19:23] VITALS: BP 115/62; PULSE 82; RESP 14; TEMP 36.6; O2SAT 94
[2024-06-05 22:00] VITALS: BP 102/51; PULSE 83; TEMP 37.5; O2SAT 96
[2024-06-05 23:40] VITALS: BP 104/58; PULSE 89; RESP 14; TEMP 37.2; O2SAT 96
--- NOTE | 2024-06-06 00:33 | MHC.EDTECH ---
This tech took over care of patient at 2300,hourly rounds and vitals completed,patient urinated 400MLS of yellow urine in urinal.
--- NOTE | 2024-06-06 01:55 | MHC.EDTECH ---
Hourly rounds completed,patient is resting comfortably
[2024-06-06 05:56] VITALS: BP 104/58; PULSE 89; RESP 14; TEMP 37.2; O2SAT 96
== END 2024-06-06 05:58 | disposition home or self-care (01) ==
PROVIDERS: Emergency Provider Emergency Medicine
DX: G89.29 Other chronic pain (principal); M25.572 Pain in left ankle and joints of left foot; F10.120 Alcohol abuse with intoxication, uncomplicated; Y90.9 Presence of alcohol in blood, level not specified; Z79.899 Other long term (current) drug therapy
CPT/HCPCS: 73600; 99283

== ENCOUNTER 2024-06-14 15:37 | Emergency (ER) | payer MEDICAID, SELFPAY ==
[2024-06-14 15:42] VITALS: BP 112/52; BP 138/92; PULSE 81; PULSE 84; RESP 18; TEMP 36.6; O2SAT 94; O2SAT 95; BMI 44.5
--- NOTE | 2024-06-14 15:54 | ED.GENADULT ---
HPI - General Adult General Chief complaint: ETOH/Substance Use Stated complaint: ETOH Time Seen by Provider: 06/14/24 15:54 Source: patient and EMS Mode of arrival: EMS Limitations: no limitations History of Present Illness ED Provider: Abril Sam PA-C HPI narrative: Patient is a 54 year old assigned male at with a history of alcohol abuse presenting to the emergency department today for alcohol intoxication. Patient states that he has been drinking today and was found on the sidewalk by someone walking by who called the ambulance. Patient denies any dizziness, lightheadedness, abdominal pain, nausea, vomiting, fever, chills, blurry vision, double vision, loss of vision, chest pain, difficulty breathing, shortness of breath, back pain, night sweats, pain with urination, increased urinary frequency, increased urinary urgency, blood in his urine or stool, syncope or a near syncopal episode, recent trauma or falls, bowel incontinence, bladder incontinence, or any other complaints at this time. Relieving factors: none Exacerbating factors: none Associated symptoms: denies other symptoms Treatments prior to arrival: none Related Data Previous Rx's ?Medication ?Instructions ?Recorded acetaminophen 325 mg capsule 325 mg PO Q4H PRN pain #30 caps 03/13/24 (Tylenol) amoxicillin 875 mg-potassium 1 tab PO BID #8 tabs 05/05/24 clavulanate 125 mg tablet folic acid 1 mg tablet 1 mg PO DAILY #90 tabs 05/05/24 multivitamin (Daily-Barry tablet) 1 tab PO DAILY #90 tabs 05/05/24 thiamine HCl (vitamin B1) 100 mg 100 mg PO DAILY #90 tabs 05/05/24 tablet azithromycin 250 mg tablet See Rx Instructions PO .COMPLEX #6 05/11/24 tabs doxycycline hyclate 100 mg capsule 100 mg PO BID 7 days #14 caps 05/11/24 Allergies Allergy/AdvReac Type Severity Reaction Status Date / Time No Known Allergies Allergy Verified 06/14/24 15:44 [No Known Allergies*] Review of Systems Constitutional: Constitutional: Reports no additional constitutional complaints, Denies chills, Denies fever(s) and Denies night sweats Eyes: Eyes: Reports no additional eye complaints, Denies blurry vision, Denies change in vision, Denies diplopia, Denies eye discharge, Denies loss of vision and Denies eye pain ENT: Denies dizziness Cardiovascular: Cardiovascular: Reports no additional cardiovascular complaints, Denies chest pain, Denies lightheadedness, Denies Loss of Consciousness and Denies dyspnea Respiratory: Respiratory: Reports no additional respiratory complaints and Denies dyspnea Gastrointestinal: Gastrointestinal: Reports no additional gastrointestinal complaints, Denies abdominal pain, Denies melena, Denies hematochezia, Denies change in bowel habits and Denies change in stool character Genitourinary: Genitourinary: Reports no additional male genitourinary complaints, Denies hematuria, Denies oliguria, Denies difficulty urinating, Denies dysuria, Denies urinary frequency, Denies urinary hesitancy, Denies urinary incontinence and Denies urinary urgency Musculoskeletal: Musculoskeletal: Reports no additional musculoskeletal complaints, Denies numbness and Denies tingling Neurologic: Denies dizziness, Denies loss of vision, Denies numbness and Denies tingling Psychiatric: Psychiatric: Reports no additional psychiatric complaints Endocrine: Endocrine: Reports no additional endocrine complaints Hematologic/Lymphatic: Hematologic/Lymphatic: Reports no additional hematologic/lymphatic complaints Allergic/Immunologic: Allergic/Immunologic: Reports no additional allergic/immunologic complaints [facility], [facility] Past Medical History Attestation statement: The following information was validated with the patient. Source: old records reviewed and nursing notes reviewed Medical History Thrombocytopenia Aspiration pneumonia Malnutrition CHF (congestive heart failure) Anemia Hypomagnesemia Cirrhosis Thrombocytopenia Alcoholic liver disease Acute on chronic anemia CHF (congestive heart failure) Anemia Pneumonia Alcohol abuse Alcohol withdrawal syndrome Surgical History No history of previous surgery Social History Social History Household Members: None Household Members Other:: pt homeless Housing: Homeless Housing Other:: homeless Do you presently have visiting nurse or other home services: No Unable to assess alcohol history related to: Refusing to respond Alcohol intake: current Alcohol intake frequency: 3 or more drinks per day Alcohol type: beer and hard liquor Comment: 1 assist to bathroom Patient Tobacco Use Status: Former Tobacco user Tobacco use type: Cigarette Second Hand Smoke Exposure: No Advance Directives: Yes Advance Directives on File: Yes Advance Directives Date on File: 07/13/23 Do you have a plan to hurt others: No Plan service: No Physical Exam ED Vital Signs: Vital Signs - 24 hr 06/14/24 15:42 06/14/24 18:00 06/14/24 19:23 Temperature 97.9 F 98.6 F 98.6 F Pulse Rate 81 86 86 Respiratory Rate 18 16 16 Blood Pressure 112/52 L 123/62 123/62 Pulse Oximetry 94 92 92 Oxygen Delivery Method Room Air Room Air Room Air 06/14/24 19:24 Temperature 98.6 F Pulse Rate 86 Respiratory Rate 18 Blood Pressure 123/62 Pulse Oximetry 92 Oxygen Delivery Method Room Air BMI result Body Mass Index 44.5 Const General: cooperative, no acute distress, alert and awake Nutritional Appearance: well nourished Orientation/consciousness: patient oriented x3 Limitations: no limitations HENMT Head: Yes normal to inspection and Yes atraumatic Ears: hearing grossly normal bilaterally and external ears normal General nose exam: Normal external nose present, no nasal discharge noted and no epistaxis Face and sinus: Yes normal facial exam, No abrasion and No laceration Mouth: Normal oral and palatal mucosa present, no drooling and no muffled voice Eyes General: appearance normal, both eyes and all related structures Periorbital: periorbital findings normal Eyelids: Yes eyelids normal Conjunctivae: conjunctivae normal Pupils: Equal, round and reactive pupils present EOM: EOMs intact bilaterally Neck Neck: Yes normal visual inspection, Yes full ROM and Yes no lymphadenopathy Chest Chest palpation & inspection: normal inspection of the chest Resp Effort & Inspection: normal respiratory effort and able to speak in complete sentences GI Inspection: Yes normal to inspection Neuro General: patient oriented x3 and moves all extremities Cranial nerves: Yes Equal, round and reactive pupils present Cognition (Neuro): normal cognition Extrem General: Yes normal to inspection, Yes full ROM and Yes capillary refill normal Psych Appearance: grossly normal Mental Status: mental status grossly normal Affect: normal affect Attitude: cooperative Thought process: Normal thought process present Thought content: Normal thought content present Insight: Good insight present (Psych) Medical Decision Making Medical Decision Making MDM Narrative: Patient is a 54 year old assigned male at with a history of alcohol abuse presenting to the emergency department today with alcohol intoxication. Patient's physical exam was unremarkable. I explained my physical exam findings to the patient. I answered all questions asked by the patient. Patient was placed in physician observation until clinically sober enough to be discharged. Observation care revealed the the patient does not meet medical necessity for hospitalization. Final disposition discussed with the patient who verbalized understanding and agreement. Patient completed observation care at 1924, total time spent in observation care was 3 hours and 23 minutes. I stressed the importance of the patient taking his medication as directed (either prescribed or as the over the counter packaging recommends). I stressed the importance of the patient following up with his primary care provider. I stressed the importance of the patient returning to the emergency department immediately if he were to develop any dizziness, shortness of breath, difficulty breathing, chest pain, blurry vision, loss of vision, nausea, vomiting, abdominal pain, fever, chills, back pain, or any other complaints. Patient verbalized agreement and understanding with this treatment plan and discharge. Patient showed good decision making skills and was able to ambulate without difficulty. Differential Diagnosis Differential Diagnoses: The differential diagnosis associated with the presentation includes Alcohol abuse Alcohol use Admission/Observation Consideration of admission/observation: Escalation of care including admission/observation considered Patient would have been admitted to the hospital had his clinical presentation warranted hospital admission. Independent Historian Clinical information obtained from an independent historian. History obtained from or confirmed by: EMS (EMS provided additional history and confirmed the history provided by the patient.) Discharge Plan Discharge Clinical Impression: Alcohol use disorder Patient Disposition: Home, Self-Care Instructions: Abuse of Alcohol (DC) Additional Instructions: Follow up with your primary care provider. Return to the emergency department immediately if your symptoms worsen or if you develop any dizziness, shortness of breath, difficulty breathing, chest pain, blurry vision, loss of vision, nausea, vomiting, abdominal pain, fever, chills, back pain, or any other complaints. Prescriptions: No Action acetaminophen [Tylenol] 325 mg capsule 325 mg PO Q4H PRN (Reason: pain) Qty: 30 0RF multivitamin [Daily-Barry] Tablet 1 tab PO DAILY Qty: 90 0RF folic acid 1 mg Tablet 1 mg PO DAILY Qty: 90 0RF thiamine HCl (vitamin B1) 100 mg tablet 100 mg PO DAILY Qty: 90 0RF amoxicillin-pot clavulanate 875-125 mg tablet 1 tab PO BID Qty: 8 0RF azithromycin 250 mg tablet See Rx Instructions .ROUTE .COMPLEX Qty: 6 0RF Rx Instructions: For 250 mg dose pack: take 500 mg today (day 1), then 250 mg for 4 days (days 2-5) doxycycline hyclate 100 mg capsule 100 mg PO BID 7 Days Qty: 14 0RF Referrals: [facility] [place] [facility] [Provider Group] (Call to establish and follow up with a primary care provider. If you already have a primary care provider, please follow up with them.) [facility] [place] [facility] [Provider Group] [facility] [place] [facility] [Provider Group] Interventions: ED Discharge Assessment Last Done: 06/14/24 19:24 Discharge Date/Time: 06/14/24 19:25 Print Language: Latvian
[2024-06-14 18:00] VITALS: BP 123/62; PULSE 86; RESP 16; TEMP 37; O2SAT 92
[2024-06-14 19:23] VITALS: BP 123/62; PULSE 86; RESP 16; TEMP 37; O2SAT 92
[2024-06-14 19:24] VITALS: BP 123/62; PULSE 86; RESP 18; TEMP 37; O2SAT 92
== END 2024-06-14 19:25 | disposition home or self-care (01) ==
PROVIDERS: Emergency Provider Student in an Organized Health Care Education/Training Program
DX: F10.10 Alcohol abuse, uncomplicated (principal); Y90.9 Presence of alcohol in blood, level not specified
CPT/HCPCS: 99283; 99284

== ENCOUNTER 2024-06-16 18:51 | Emergency (ER) | payer MEDICAID, SELFPAY ==
[2024-06-16 19:22] VITALS: BP 120/76; BP 138/72; PULSE 78; PULSE 81; RESP 14; TEMP 36.9; O2SAT 94; BMI 21.0
--- NOTE | 2024-06-16 19:22 | ED_ITS ---
HPI - General Adult General Chief complaint: ETOH/Substance Use Stated complaint: etoh Time Seen by Provider: 06/16/24 19:20 Source: patient and EMS Mode of arrival: EMS Limitations: no limitations History of Present Illness ED Provider: Abril Sam PA-C HPI narrative: Patient is a 54 year old assigned male at with a history of alcohol abuse presenting to the emergency department today for alcohol intoxication. Patient states that he has been drinking today and was found sleeping outside of the fire station. Patient denies any dizziness, lightheadedness, abdominal pain, nausea, vomiting, fever, chills, blurry vision, double vision, loss of vision, chest pain, difficulty breathing, shortness of breath, back pain, night sweats, pain with urination, increased urinary frequency, increased urinary urgency, blood in his urine or stool, syncope or a near syncopal episode, recent trauma or falls, bowel incontinence, bladder incontinence, or any other complaints at this time. Relieving factors: none Exacerbating factors: none Associated symptoms: denies other symptoms Treatments prior to arrival: none Related Data Previous Rx's ?Medication ?Instructions ?Recorded acetaminophen 325 mg capsule 325 mg PO Q4H PRN pain #30 caps 03/13/24 (Tylenol) amoxicillin 875 mg-potassium 1 tab PO BID #8 tabs 05/05/24 clavulanate 125 mg tablet folic acid 1 mg tablet 1 mg PO DAILY #90 tabs 05/05/24 multivitamin (Daily-Barry tablet) 1 tab PO DAILY #90 tabs 05/05/24 thiamine HCl (vitamin B1) 100 mg 100 mg PO DAILY #90 tabs 05/05/24 tablet azithromycin 250 mg tablet See Rx Instructions PO .COMPLEX #6 05/11/24 tabs doxycycline hyclate 100 mg capsule 100 mg PO BID 7 days #14 caps 05/11/24 Allergies Allergy/AdvReac Type Severity Reaction Status Date / Time No Known Allergies Allergy Verified 06/16/24 19:28 [No Known Allergies*] Review of Systems Constitutional: Constitutional: Reports no additional constitutional complaints, Denies chills, Denies fever(s) and Denies night sweats Eyes: Eyes: Reports no additional eye complaints, Denies blurry vision, Denies change in vision, Denies diplopia, Denies eye discharge, Denies loss of vision and Denies eye pain ENT: Denies dizziness Cardiovascular: Cardiovascular: Reports no additional cardiovascular complaints, Denies chest pain, Denies lightheadedness, Denies Loss of Co nsciousness and Denies dyspnea Respiratory: Respiratory: Reports no additional respiratory complaints and Denies dyspnea Gastrointestinal: Gastrointestinal: Reports no additional gastrointestinal complaints, Denies abdominal pain, Denies melena, Denies hematochezia, Denies change in bowel habits and Denies change in stool character Genitourinary: Genitourinary: Reports no additional male genitourinary complaints, Denies hematuria, Denies oliguria, Denies difficulty urinating, Denies dysuria, Denies urinary frequency, Denies urinary hesitancy, Denies urinary incontinence and Denies urinary urgency Musculoskeletal: Musculoskeletal: Reports no additional musculoskeletal complaints, Denies numbness and Denies tingling Neurologic: Denies dizziness, Denies loss of vision, Denies numbness and Denies tingling Psychiatric: Psychiatric: Reports no additional psychiatric complaints Endocrine: Endocrine: Reports no additional endocrine complaints Hematologic/Lymphatic: Hematologic/Lymphatic: Reports no additional hematologic/lymphatic complaints Allergic/Immunologic: Allergic/Immunologic: Reports no additional allergic/immunologic complaints [facility] Past Medical History Attestation statement: The following information was validated with the patient. Source: old records reviewed and nursing notes reviewed Medical History Thrombocytopenia Aspiration pneumonia Malnutrition CHF (congestive heart failure) Anemia Hypomagnesemia Cirrhosis Thrombocytopenia Alcoholic liver disease Acute on chronic anemia CHF (congestive heart failure) Anemia Pneumonia Alcohol abuse Alcohol withdrawal syndrome Surgical History No history of previous surgery Social History Social History Household Members: None Household Members Other:: pt homeless Housing: Homeless Housing Other:: homeless Do you presently have visiting nurse or other home services: No Unable to assess alcohol history related to: Refusing to respond Alcohol intake: current Alcohol intake frequency: 3 or more drinks per day Alcohol type: beer and hard liquor Comment: 1 assist to bathroom Patient Tobacco Use Status: Former Tobacco user Tobacco use type: Cigarette Second Hand Smoke Exposure: No Advance Directives: Yes Advance Directives on File: Yes Advance Directives Date on File: 07/13/23 service: No Physical Exam ED Vital Signs: Vital Signs - 24 hr 06/16/24 19:22 Temperature 98.4 F Pulse Rate 78 Respiratory Rate 14 Blood Pressure 120/76 Pulse Oximetry 94 Oxygen Delivery Method Room Air BMI result Body Mass Index 21.0 Const General: cooperative, no acute distress, alert and awake Nutritional Appearance: well nourished Orientation/consciousness: patient oriented x3 Limitations: no limitations HENMT Head: Yes normal to inspection and Yes atraumatic Ears: hearing grossly normal bilaterally and external ears normal General nose exam: Normal external nose present, no nasal discharge noted and no epistaxis Face and sinus: Yes normal facial exam, No abrasion and No laceration Mouth: Normal oral and palatal mucosa present, no drooling and no muffled voice Eyes General: appearance normal, both eyes and all related structures Periorbital: periorbital findings normal Eyelids: Yes eyelids normal Conjunctivae: conjunctivae normal Pupils: Equal, round and reactive pupils present EOM: EOMs intact bilaterally Neck Neck: Yes normal visual inspection, Yes full ROM and Yes no lymphadenopathy Chest Chest palpation & inspection: normal inspection of the chest Resp Effort & Inspection: normal respiratory effort and able to speak in complete sentences GI Inspection: Yes normal to inspection Neuro General: patient oriented x3 and moves all extremities Cranial nerves: Yes Equal, round and reactive pupils present Cognition (Neuro): normal cognition Extrem General: Yes normal to inspection, Yes full ROM and Yes capillary refill normal Psych Appearance: grossly normal Mental Status: mental status grossly normal Affect: normal affect Attitude: cooperative Thought process: Normal thought process present Thought content: Normal thought content present Insight: Good insight present (Psych) Medical Decision Making Medical Decision Making MDM Narrative: Patient is a 54 year old assigned male at with a history of alcohol abuse presenting to the emergency department today with alcohol intoxication. Patient's physical exam was unremarkable. I explained my physical exam findings to the patient. I answered all questions asked by the patient. Patient remains in physician observation until he is clinically sober or he obtains a sober ride. Differential Diagnosis Differential Diagnoses: The differential diagnosis associated with the presentation includes Alcohol abuse Alcohol intoxication Admission/Observation Consideration of admission/observation: Escalation of care including admission/observation considered Patient would have been admitted to the hospital had his clinical presentation warranted hospital admission. Tests considered The following testing was considered but not selected: I considered obtaining blood work including a CBC and CMP however, the patient's current clinical presentation did not warrant this. I discussed this with the patient who verbalized agreement and understanding. Discharge Plan Discharge Clinical Impression: Alcohol use disorder Patient Disposition: Still a Patient Prescriptions: No Action acetaminophen [Tylenol] 325 mg capsule 325 mg PO Q4H PRN (Reason: pain) Qty: 30 0RF multivitamin [Daily-Barry] Tablet 1 tab PO DAILY Qty: 90 0RF folic acid 1 mg Tablet 1 mg PO DAILY Qty: 90 0RF thiamine HCl (vitamin B1) 100 mg tablet 100 mg PO DAILY Qty: 90 0RF amoxicillin-pot clavulanate 875-125 mg tablet 1 tab PO BID Qty: 8 0RF azithromycin 250 mg tablet See Rx Instructions .ROUTE .COMPLEX Qty: 6 0RF Rx Instructions: For 250 mg dose pack: take 500 mg today (day 1), then 250 mg for 4 days (days 2-5) doxycycline hyclate 100 mg capsule 100 mg PO BID 7 Days Qty: 14 0RF Print Language: Icelandic
--- NOTE | 2024-06-16 20:10 | MHC.EDTECH ---
belongings placed in secured closet between the [place] doors
[2024-06-17 00:45] VITALS: RESP 18
[2024-06-17 05:58] VITALS: RESP 18
[2024-06-17 06:34] VITALS: BP 00/00; PULSE 0; RESP 20; TEMP -17.7; TEMP 0
== END 2024-06-17 06:38 | disposition home or self-care (01) ==
PROVIDERS: Emergency Provider Emergency Medicine Emergency Medical Services
DX: F10.129 Alcohol abuse with intoxication, unspecified (principal); Y90.8 Blood alcohol level of 240 mg/100 ml or more; Z87.891 Personal history of nicotine dependence; Z79.899 Other long term (current) drug therapy
CPT/HCPCS: 99284

== ENCOUNTER 2024-06-18 15:43 | Emergency (ER) | payer MEDICAID, SELFPAY ==
[2024-06-18 15:47] VITALS: BP 119/72; BP 129/80; PULSE 70; PULSE 74; RESP 18; TEMP 36.6; O2SAT 92; O2SAT 96; BMI 20.6
--- NOTE | 2024-06-18 16:04 | ED_ITS ---
HPI - Alcohol General Chief Complaint: ETOH/Substance Use Stated Complaint: ETOH Time Seen by Provider: 06/18/24 15:57 Source: patient and EMS Mode of arrival: EMS Limitations: no limitations History of Present Illness HPI narrative: Male who presents to the emergency department via EMS. He was found sleeping outside of the [employer] station today. He states he chose to sleep there because he wanted to sleep under a form of senior care so he would not get rained on. He admits to drinking lots of beer and vodka today. He offers no physical complaints. Related Data Previous Rx's ?Medication ?Instructions ?Recorded acetaminophen 325 mg capsule 325 mg PO Q4H PRN pain #30 caps 03/13/24 (Tylenol) amoxicillin 875 mg-potassium 1 tab PO BID #8 tabs 05/05/24 clavulanate 125 mg tablet folic acid 1 mg tablet 1 mg PO DAILY #90 tabs 05/05/24 multivitamin (Daily-Barry tablet) 1 tab PO DAILY #90 tabs 05/05/24 thiamine HCl (vitamin B1) 100 mg 100 mg PO DAILY #90 tabs 05/05/24 tablet azithromycin 250 mg tablet See Rx Instructions PO .COMPLEX #6 05/11/24 tabs doxycycline hyclate 100 mg capsule 100 mg PO BID 7 days #14 caps 05/11/24 Allergies Allergy/AdvReac Type Severity Reaction Status Date / Time No Known Allergies Allergy Verified 06/18/24 15:52 [No Known Allergies*] Review of Systems Review of Systems: Yes all other systems are reviewed and are negative PMFSH Past Medical History Attestation statement: The following information was validated with the patient. Source: old records reviewed Medical History Thrombocytopenia Aspiration pneumonia Malnutrition CHF (congestive heart failure) Anemia Hypomagnesemia Cirrhosis Thrombocytopenia Alcoholic liver disease Acute on chronic anemia CHF (congestive heart failure) Anemia Pneumonia Alcohol abuse Alcohol withdrawal syndrome Surgical History No history of previous surgery Social History Social History Household Members: None Household Members Other:: pt homeless Housing: Homeless Housing Other:: homeless Do you presently have visiting nurse or other home services: No Unable to assess alcohol history related to: Refusing to respond Alcohol intake: current Alcohol intake frequency: 3 or more drinks per day Alcohol type: beer and hard liquor Comment: 1 assist to bathroom Patient Tobacco Use Status: Former Tobacco user Tobacco use type: Cigarette Second Hand Smoke Exposure: No Advance Directives: Yes Advance Directives on File: Yes Advance Directives Date on File: 07/13/23 Do you have a plan to hurt others: No Plan service: No Physical Exam ED Vital Signs: Vital Signs - 24 hr 06/18/24 15:47 Temperature 97.9 F Pulse Rate 70 Respiratory Rate 18 Blood Pressure 119/72 Pulse Oximetry 92 Oxygen Delivery Method Room Air BMI result Body Mass Index 20.6 Appearance: Alert.?Oriented to person, place and time. No acute distress.?Normal affect. Eyes: Pupils equal, round and reactive to light.? ENT: Pharynx normal.?? Neck: Normal inspection.? Neck supple.?? CVS: Heart sounds normal. Normal heart rate and rhythm.? Pulses normal.?? Respiratory: No respiratory distress.? Lung sounds clear to auscultation bilaterally?? Abdomen: Soft and non-tender. Normoactive bowel sounds. ? Skin: Skin warm and dry.? Normal skin color.? Extremities: No lower extremity edema.? Neuro: Moves all extremities spontaneously. Sensation intact bilaterally. CN II- XII intact. No focal neuro deficits. Ambulates with normal steady gait. Medical Decision Making Medical Decision Making MDM Narrative: Patient Is a 54-year-old male with past medical history of history of alcohol use disorder, thrombocytopenia, cirrhosis, CHF, anemia, aspiration pneumonia presenting via EMS for evaluation after being found sitting as a fire station admitting to alcohol consumption. He offers no physical complaints at this time. He has a known fracture to his left ankle chronic, does not follow-up with orthopedics instructed, is not wearing the orthopedic shoe he has been provided in the past. Physical examination is overall benign. Differential Diagnosis Differential Diagnoses: The differential diagnosis associated with the presentation includes (Alcohol abuse, alcohol intoxication) Admission/Observation Consideration of admission/observation: Escalation of care including admission/observation considered Patient is being observed in the Emergency Department for encephalopathy. Observation time was started at 16:20 on 06/18/2024.?The patient is currently stable and non-toxic appearing. Observation is being initiated in the Emergency Department to allow time to help differentiate if the patient?s encephalopathy and delirium is due to alcohol intoxication and polysubstance abuse versus stroke, transient ischemic attack, major depression, overdose of medication, arrhythmia, seizure, or closed head injury/concussion. The patient will receive frequent assessments from the provider as well as the nursing staff. The patient will be monitored for the need for diagnostic imaging such as a CT head, MRI brain, chest x-ray, and serial EKGs to evaluate for prolonged QTc intervals. The patient will also be monitored for the need of PRN agitation medications such as Haldol, Ativan, and Benadryl. Observation for this patient ended at 00:41 on 06/19/2024. The patient was discharged from the Emergency Department after observation was completed, ambulatory with a steady gait, clinically sober, stable for discharge. Independent Historian Clinical information obtained from an independent historian. History obtained from or confirmed by: EMS External Record Review External record reviewed: Outpatient record Discharge Plan Discharge Clinical Impression: Alcoholic intoxication Patient Disposition: Home, Self-Care Instructions: Alcohol Use Disorder (ED) Prescriptions: No Action acetaminophen [Tylenol] 325 mg capsule 325 mg PO Q4H PRN (Reason: pain) Qty: 30 0RF multivitamin [Daily-Barry] Tablet 1 tab PO DAILY Qty: 90 0RF folic acid 1 mg Tablet 1 mg PO DAILY Qty: 90 0RF thiamine HCl (vitamin B1) 100 mg tablet 100 mg PO DAILY Qty: 90 0RF amoxicillin-pot clavulanate 875-125 mg tablet 1 tab PO BID Qty: 8 0RF azithromycin 250 mg tablet See Rx Instructions .ROUTE .COMPLEX Qty: 6 0RF Rx Instructions: For 250 mg dose pack: take 500 mg today (day 1), then 250 mg for 4 days (days 2-5) doxycycline hyclate 100 mg capsule 100 mg PO BID 7 Days Qty: 14 0RF Print Language: Canadian
--- NOTE | 2024-06-18 21:11 | PC.NURSE ---
assumed care of patient @ 1900; sleeping comfortably in hallway stretcher.
[2024-06-19 00:47] VITALS: BP 112/76; PULSE 74; RESP 19; O2SAT 94
[2024-06-19 00:57] VITALS: BP 112/76; PULSE 74; RESP 19; TEMP 37.1; O2SAT 94
== END 2024-06-19 00:57 | disposition home or self-care (01) ==
PROVIDERS: Emergency Provider Internal Medicine
DX: F10.129 Alcohol abuse with intoxication, unspecified (principal); I50.9 Heart failure, unspecified; K70.30 Alcoholic cirrhosis of liver without ascites
CPT/HCPCS: 99284

== ENCOUNTER 2024-06-19 12:57 | Emergency (ER) | payer MEDICAID, SELFPAY ==
[2024-06-19 13:03] VITALS: BP 138/96; PULSE 77; O2SAT 95
[2024-06-19 13:12] VITALS: BMI 20.3
--- NOTE | 2024-06-19 13:15 | ED.ALCOHOL ---
HPI - Alcohol General Chief Complaint: ETOH/Substance Use Stated Complaint: TREMORS Time Seen by Provider: 06/19/24 13:00 Source: patient, EMS and old records reviewed Mode of arrival: EMS Limitations: no limitations History of Present Illness ED Provider: ISAIAS VIVAR narrative: 54 yo male with PMH of ETOH abuse, pancytopenia, neuropathy, varices he comes in today after drinking and being out in the rain. He notes he just wants some food and to sleep. No SI, does not want detox. He has been here several times in the past for the same. Denies falls or trauma. MD complaint: alcohol dependence Last drink: Just prior to admission Chronic alcohol use: Yes Previous visits for alcohol intoxication: Yes Recent trauma: No Associated symptoms: denies other symptoms Treatments prior to arrival: none Related Data Previous Rx's ?Medication ?Instructions ?Recorded acetaminophen 325 mg capsule 325 mg PO Q4H PRN pain #30 caps 03/13/24 (Tylenol) amoxicillin 875 mg-potassium 1 tab PO BID #8 tabs 05/05/24 clavulanate 125 mg tablet folic acid 1 mg tablet 1 mg PO DAILY #90 tabs 05/05/24 multivitamin (Daily-Barry tablet) 1 tab PO DAILY #90 tabs 05/05/24 thiamine HCl (vitamin B1) 100 mg 100 mg PO DAILY #90 tabs 05/05/24 tablet azithromycin 250 mg tablet See Rx Instructions PO .COMPLEX #6 05/11/24 tabs doxycycline hyclate 100 mg capsule 100 mg PO BID 7 days #14 caps 05/11/24 Allergies Allergy/AdvReac Type Severity Reaction Status Date / Time No Known Allergies Allergy Verified 06/19/24 13:13 [No Known Allergies*] Review of Systems Review of Systems: Constitutional : No Fever, No Chills, No Fatigue ENT/Mouth : No sore throat, No Rhinorrhea Eyes: No Eye Pain, No Swelling, No Redness Cardiovascular : No Chest Pain, No SOB, No Dyspnea on Exertion Respiratory : No Cough, No Sputum Gastrointestinal : No Nausea, No Vomiting, No Diarrhea, No abdominal Pain Genitourinary : No Dysuria, No Urinary Frequency, No Hematuria, Musculoskeletal : No joint pain, No Myalgias, No Joint Swelling Skin : No Skin Lesions, No rash Neuro : No Weakness, No Numbness, No Dizziness, no Headache Psych : No Anxiety/Panic, No Depression All other systems reviewed and are negative [facility] Past Medical History Attestation statement: The following information was validated with the patient. Source: old records reviewed Medical History Thrombocytopenia Aspiration pneumonia Malnutrition CHF (congestive heart failure) Anemia Hypomagnesemia Cirrhosis Thrombocytopenia Alcoholic liver disease Acute on chronic anemia CHF (congestive heart failure) Anemia Pneumonia Alcohol abuse Alcohol withdrawal syndrome Surgical History No history of previous surgery Social History Social History Household Members: None Household Members Other:: pt homeless Housing: Homeless Housing Other:: homeless Do you presently have visiting nurse or other home services: No Unable to assess alcohol history related to: Refusing to respond Alcohol intake: current Alcohol intake frequency: 3 or more drinks per day Alcohol type: beer and hard liquor Comment: 1 assist to bathroom Patient Tobacco Use Status: Former Tobacco user Tobacco use type: Cigarette Second Hand Smoke Exposure: No Advance Directives: Yes Advance Directives on File: Yes Advance Directives Date on File: 07/13/23 service: No Physical Exam ED Vital Signs: Vital Signs - 24 hr 06/19/24 13:31 06/19/24 15:08 Pulse Rate 80 87 Respiratory Rate 20 12 Blood Pressure 114/63 104/47 L Pulse Oximetry 92 92 Oxygen Delivery Method Room Air Room Air BMI result Body Mass Index 20.3 Appearance: Alert. Oriented X3. No acute distress. Eyes: Pupils equal, round and reactive to light. ENT: Pharynx normal. atraumatic Neck: Normal inspection. Neck supple. CVS: Normal heart rate and rhythm. Pulses normal. Respiratory: No respiratory distress. Breath sounds normal. Abdomen: Soft and nontender. Skin: Skin warm and dry. Normal skin color. Normal skin turgor. Extremities: trace pitting edema both ankles Neuro: Oriented X 3. No motor deficit. No sensory deficit. Course Course Course Narrative: signed out to John pending he wants to leave currently does not want labs Medical Decision Making Medical Decision Making MDM Narrative: 54 yo male with PMH of ETOH abuse, pancytopenia, neuropathy, varices here with c/o wanting food, sleep and just to rest. He has been seen here several times in the past for same. At this time will need labs as he has not had them in a while - observe until he is ready for DC. Does not have SI does not want detox Differential Diagnosis Differential Diagnoses: The differential diagnosis associated with the presentation includes ETOH abuse, poor social support, lack of housing Admission/Observation Consideration of admission/observation: Escalation of care including admission/observation considered physician observation started at 140pm pending clinical sobriety Lab Data MDM Lab Attestation statement: I reviewed the patient's lab results. Independent Historian Clinical information obtained from an independent historian. History obtained from or confirmed by: EMS External Record Review External record reviewed: Inpatient record Social Determinants Patient?s care significantly limited by Social Determinants of Health including: Inadequate housing, Low income, Problems related to primary support group and Unemployment Discharge Plan Discharge Clinical Impression: Alcohol use disorder Patient Disposition: Still a Patient Instructions: Abuse of Alcohol (ED) Additional Instructions: please cut down your drinking return for fevers, vomiting, difficulty breathing or any other concerns Prescriptions: No Action acetaminophen [Tylenol] 325 mg capsule 325 mg PO Q4H PRN (Reason: pain) Qty: 30 0RF multivitamin [Daily-Barry] Tablet 1 tab PO DAILY Qty: 90 0RF folic acid 1 mg Tablet 1 mg PO DAILY Qty: 90 0RF thiamine HCl (vitamin B1) 100 mg tablet 100 mg PO DAILY Qty: 90 0RF amoxicillin-pot clavulanate 875-125 mg tablet 1 tab PO BID Qty: 8 0RF azithromycin 250 mg tablet See Rx Instructions .ROUTE .COMPLEX Qty: 6 0RF Rx Instructions: For 250 mg dose pack: take 500 mg today (day 1), then 250 mg for 4 days (days 2-5) doxycycline hyclate 100 mg capsule 100 mg PO BID 7 Days Qty: 14 0RF Print Language: Cook Islander
[2024-06-19 13:31] VITALS: BP 114/63; PULSE 80; RESP 20; O2SAT 92
[2024-06-19 15:08] VITALS: BP 104/47; PULSE 87; RESP 12; O2SAT 92
[2024-06-19 18:00] VITALS: BP 99/55; PULSE 87; RESP 14; TEMP 36.7; O2SAT 94
[2024-06-19 19:25] LABS: MANUAL DIFF FLAG NO
[2024-06-19 19:41] LABS: Basophils Percent Auto 1.3 % (0-2); Eosinophils Absolute Auto 0.1 X10*3/uL (0.0-0.4); Eosinophils Percent Auto 1.6 % (0-4); Hematocrit 30.3 % (42.0-52.0); Hemoglobin 10.2 g/dl (14.0-18.0); Imm Gran Abs Auto 0.01 X10*3/uL (0.00-0.03); Imm Gran Pct Auto 0.3 % (0.0-0.4); Lymphocytes Absolute Auto 0.9 X10*3/uL (1.2-4.9); Lymphocytes Percent Auto 28.1 % (20-40); Mean Corpuscular HGB Conc 33.7 g/dl (31.0-36.0); Mean Corpuscular Hemoglobin 31.2 pg (27.0-33.0); Mean Corpuscular Volume 92.7 fL (80.0-98.0); Mean Platelet Volume 11.4 fL (9.4-12.4); Monocytes Absolute Auto 0.4 X10*3/uL (0.1-1.2); Monocytes Percent Auto 12.2 % (2-11); Neutrophils Absolute Auto 1.8 x10*3/uL (2.0-8.3); Neutrophils Percent Auto 56.5 % (45-73); Platelet Count 28 X10*3/uL (160-400); Red Blood Count 3.27 X10*6/uL (4.60-5.80); Red Cell Distribution Width 17.9 % (11.0-16.0); White Blood Count 3.2 X10*3/uL (4.8-10.8)
[2024-06-19 19:44] LABS: Alanine Aminotransferase 20 U/L (0-40); Albumin Level 3.2 g/dL (3.5-5.0); Alkaline Phosphatase 185 U/L (39-117); Anion Gap 14 (12-20); Aspartate Amino Transferase 104 U/L (5-37); Bilirubin Direct 0.9 mg/dL (0.0-0.5); Bilirubin Total 1.5 mg/dL (0.0-1.0); Blood Urea Nitrogen 10 mg/dL (9-16); Calcium 8.6 mg/dL (8.4-10.2); Carbon Dioxide 23 mmol/L (22-29); Chloride 108 mmol/L (96-108); Creatinine Clr Calc Pharmacy 85.1; Estimated Glomerular Filt Rate > 60; Ethanol 254 mg/dL; Glucose Random 116 mg/dL (60-115); Magnesium 1.6 mg/dL (1.6-2.6); Potassium 3.2 mmol/L (3.3-5.1); Sodium 142 mmol/L (135-145); Total Protein 7.9 g/dL (6.5-8.0)
[2024-06-19 21:14] VITALS: BP 118/61; PULSE 86; RESP 16; TEMP 37.2; O2SAT 91
[2024-06-19 23:33] VITALS: BP 00/00; PULSE 0; RESP 18; TEMP -17.7; TEMP 0
== END 2024-06-19 23:34 | disposition home or self-care (01) ==
PROVIDERS: Emergency Provider Emergency Medicine
DX: F10.10 Alcohol abuse, uncomplicated (principal); R25.1 Tremor, unspecified; Z87.891 Personal history of nicotine dependence; Z79.899 Other long term (current) drug therapy
CPT/HCPCS: 36415; 80048; 80076; 80307; 83735; 85025; 99283; 99284

== ENCOUNTER 2024-06-24 17:43 | Emergency (ER) | payer MEDICAID, SELFPAY ==
[2024-06-24 18:04] VITALS: BP 148/78; PULSE 92
[2024-06-24 18:17] VITALS: BP 119/83; PULSE 82; RESP 16; TEMP 37.4; O2SAT 95; BMI 20.2
--- NOTE | 2024-06-24 18:35 | ED_ITS ---
HPI - Alcohol General Chief Complaint: ETOH/Substance Use Stated Complaint: ETOH Time Seen by Provider: 06/24/24 17:50 Source: patient Mode of arrival: ambulatory Limitations: no limitations History of Present Illness ED Provider: Dr. Alexandria Sweeney HPI narrative: patient comes to the emergency room by ambulance. Patient states that [place] the [place], police found him sleeping and then called EMS and brought him to the emergency room. Patient admits that he has been drinking alcohol. Patient states that he did not fall, he was just taking a nap. Related Data Previous Rx's ?Medication ?Instructions ?Recorded acetaminophen 325 mg capsule 325 mg PO Q4H PRN pain #30 caps 03/13/24 (Tylenol) amoxicillin 875 mg-potassium 1 tab PO BID #8 tabs 05/05/24 clavulanate 125 mg tablet folic acid 1 mg tablet 1 mg PO DAILY #90 tabs 05/05/24 multivitamin (Daily-Barry tablet) 1 tab PO DAILY #90 tabs 05/05/24 thiamine HCl (vitamin B1) 100 mg 100 mg PO DAILY #90 tabs 05/05/24 tablet azithromycin 250 mg tablet See Rx Instructions PO .COMPLEX #6 05/11/24 tabs doxycycline hyclate 100 mg capsule 100 mg PO BID 7 days #14 caps 05/11/24 Allergies Allergy/AdvReac Type Severity Reaction Status Date / Time No Known Allergies Allergy Verified 06/24/24 18:18 [No Known Allergies*] Review of Systems Review of Systems: Constitutional : No Weight loss, No Fever, No Chills, No Night Sweats, No Fatigue, No Malaise ENT/Mouth : No Hearing loss, No Ear Pain, No Nasal Congestion, No Sinus Pain, No Hoarseness, No sore throat, No Rhinorrhea, No Swallowing Difficulty Eyes: No Eye Pain, No Swelling, No Redness, No Foreign Body, No Discharge, No Vision Changes Cardiovascular : No Chest Pain, No SOB, No Dyspnea on Exertion, No Orthopnea, No Edema, No Palpitations Respiratory : No Cough, No Sputum, No Wheezing, No Smoke Exposure, No Dyspnea Gastrointestinal : No Nausea, No Vomiting, No Diarrhea, No Constipation, No abdominal Pain, No Hematochezia, No Melena Genitourinary : no irregular bleeding, No Dysuria, No Urinary Frequency, No Hematuria, No Urinary Incontinence, No Urgency, No Flank Pain, No Urinary Flow Changes, No Hesitancy Musculoskeletal : No joint pain, No Myalgias, No Joint Swelling Skin : No Skin Lesions, No rash Neuro : No Weakness, No Numbness, No Paresthesias, No Loss of Consciousness, No Dizziness, No Headache Psych : No Anxiety/Panic, No Depression, No SI/HI/AH/VH, Admits to alcohol abuse and dependence Heme/Lymph: No Bruising, No Bleeding,No Lymphadenopathy Endocrine : No Polyuria, No Polydipsia, No Temperature Intolerance [facility] Past Medical History Medical History Thrombocytopenia Aspiration pneumonia Malnutrition CHF (congestive heart failure) Anemia Hypomagnesemia Cirrhosis Thrombocytopenia Alcoholic liver disease Acute on chronic anemia CHF (congestive heart failure) Anemia Pneumonia Alcohol abuse Alcohol withdrawal syndrome Surgical History No history of previous surgery Social History Social History Household Members: None Household Members Other:: pt homeless Housing: Homeless Housing Other:: homeless Do you presently have visiting nurse or other home services: No Unable to assess alcohol history related to: Refusing to respond Alcohol intake: current Alcohol intake frequency: 3 or more drinks per day Alcohol type: beer and hard liquor Comment: 1 assist to bathroom Patient Tobacco Use Status: Former Tobacco user Tobacco use type: Cigarette Second Hand Smoke Exposure: No Advance Directives: Yes Advance Directives on File: Yes Advance Directives Date on File: 07/13/23 service: No Physical Exam ED Vital Signs: Vital Signs - 24 hr 06/24/24 18:17 Temperature 99.3 F Pulse Rate 82 Respiratory Rate 16 Blood Pressure 119/83 Pulse Oximetry 95 Oxygen Delivery Method Room Air BMI result Body Mass Index 20.2 Const Other: Appearance: Alert. Oriented X3. No acute distress. intoxicated but still coherent Eyes: Pupils equal, round and reactive to light. ENT: Pharynx normal. Neck: Normal inspection. Neck supple. No lymph nodes noted. No crepitus CVS: Normal heart rate and rhythm. Pulses normal. Normal S1 and S2 Respiratory: No respiratory distress. Breath sounds normal. No Wheezing. No rales Abdomen: Soft and nontender. No rigidity. No distention. Skin: Skin warm and dry. Normal skin color. Normal skin turgor. Extremities: No lower extremity edema. No Lacerations. No Rash Neuro: Oriented X 3. No motor deficit. No sensory deficit. Moving all extremities. No slurred speech. CN 2 through 12 grossly intact Psych: calm, cooperative, normal affect Course Course Course Narrative: - patient awake, alert, neurologically intact, has no complaints - patient's vitals stable , calm , cooperative and very talkative - patient is under physician observation waiting to become sober. - physician observation started at 18:40 Medical Decision Making Differential Diagnosis Differential Diagnoses: The differential diagnosis associated with the presentation includes ( alcohol intoxication, alcohol dependence) Admission/Observation Consideration of admission/observation: Escalation of care including admission/observation considered ( patient is under physician observation waiting to become Sober.) Discharge Plan Discharge Clinical Impression: Alcohol intoxication Patient Disposition: Still a Patient Prescriptions: No Action acetaminophen [Tylenol] 325 mg capsule 325 mg PO Q4H PRN (Reason: pain) Qty: 30 0RF multivitamin [Daily-Barry] Tablet 1 tab PO DAILY Qty: 90 0RF folic acid 1 mg Tablet 1 mg PO DAILY Qty: 90 0RF thiamine HCl (vitamin B1) 100 mg tablet 100 mg PO DAILY Qty: 90 0RF amoxicillin-pot clavulanate 875-125 mg tablet 1 tab PO BID Qty: 8 0RF azithromycin 250 mg tablet See Rx Instructions .ROUTE .COMPLEX Qty: 6 0RF Rx Instructions: For 250 mg dose pack: take 500 mg today (day 1), then 250 mg for 4 days (days 2-5) doxycycline hyclate 100 mg capsule 100 mg PO BID 7 Days Qty: 14 0RF Print Language: Mohawk
[2024-06-25 00:35] VITALS: RESP 18
--- NOTE | 2024-06-25 03:49 | PC.NURSE ---
pt awake, and states he is ready to go home, pt up and amb steadily to the bathroom,
[2024-06-25 03:56] VITALS: BP 122/67; PULSE 83; RESP 17; TEMP 36.8; O2SAT 94
[2024-06-25 04:11] VITALS: BP 122/67; PULSE 83; RESP 17; TEMP 36.8; O2SAT 94
== END 2024-06-25 04:12 | disposition home or self-care (01) ==
PROVIDERS: Emergency Provider Emergency Medicine
DX: F10.129 Alcohol abuse with intoxication, unspecified (principal); Y90.9 Presence of alcohol in blood, level not specified; Z87.891 Personal history of nicotine dependence
CPT/HCPCS: 99283

== ENCOUNTER 2024-06-28 15:14 | Emergency (ER) | payer MEDICAID, SELFPAY ==
--- NOTE | ~2024-06-28 | XR_ITS ---
EXAMINATION: XR HAND, LEFT CLINICAL INFORMATION: Swollen hand. No injury. COMPARISON: None available. TECHNIQUE: PA, lateral, and oblique views of the left hand. FINDINGS: The osseous structures appear somewhat demineralized. There is no fracture or dislocation. There is narrowing of the interphalangeal joints of all 5 digits. The regional soft tissue appears normal. No radiopaque foreign object is identified. XR/XR hand LT min 3V IMPRESSION: The osseous structures appear demineralized. There is no fracture or dislocation.
[2024-06-28 15:20] VITALS: BP 138/80; PULSE 81; O2SAT 95
--- NOTE | 2024-06-28 15:26 | ED.UPPEXIN ---
HPI - Extremity Injury (Upper) General Chief Complaint: Extremity Injury, Upper Stated Complaint: L hand injury, ETOH Time Seen by Provider: 06/28/24 15:15 Source: patient, EMS, RN notes reviewed and old records reviewed Mode of arrival: EMS Limitations: no limitations History of Present Illness ED Provider: Genny Whitney PA-C HPI narrative: 54 yo male with history of alcohol abuse and dependence, alcoholic cirrhosis w/ hx hepatic encephalopathy, throbocytopenia, esophageal varices and UGIB in the past, hx distal tibial fx who presents to the ER via EMS for evaluation of alcohol intoxication left hand pain. Patient reports the pain is stinging and is located between the thumb and 1st finger on the dorsal side. Denies any falls or trauma. Reports drinking beer and vodka this morning. He was picked up outside the fire station. No chest pain or abdominal pain. No nausea or vomiting. No numbness or tingling in his hands. No open wounds. MD complaint: injury to: left and hand Onset (ago): unknown Other injuries: none Associated symptoms: denies other symptoms Related Data Previous Rx's ?Medication ?Instructions ?Recorded acetaminophen 325 mg capsule 325 mg PO Q4H PRN pain #30 caps 03/13/24 (Tylenol) amoxicillin 875 mg-potassium 1 tab PO BID #8 tabs 05/05/24 clavulanate 125 mg tablet folic acid 1 mg tablet 1 mg PO DAILY #90 tabs 05/05/24 multivitamin (Daily-Barry tablet) 1 tab PO DAILY #90 tabs 05/05/24 thiamine HCl (vitamin B1) 100 mg 100 mg PO DAILY #90 tabs 05/05/24 tablet azithromycin 250 mg tablet See Rx Instructions PO .COMPLEX #6 05/11/24 tabs doxycycline hyclate 100 mg capsule 100 mg PO BID 7 days #14 caps 05/11/24 Allergies Allergy/AdvReac Type Severity Reaction Status Date / Time No Known Allergies Allergy Verified 06/28/24 15:35 [No Known Allergies*] Review of Systems Review of Systems: Yes all other systems are reviewed and are negative PMFSH Past Medical History Medical History Thrombocytopenia Aspiration pneumonia Malnutrition CHF (congestive heart failure) Anemia Hypomagnesemia Cirrhosis Thrombocytopenia Alcoholic liver disease Acute on chronic anemia CHF (congestive heart failure) Anemia Pneumonia Alcohol abuse Alcohol withdrawal syndrome Surgical History No history of previous surgery Social History Social History Household Members: None Household Members Other:: pt homeless Housing: Homeless Housing Other:: homeless Do you presently have visiting nurse or other home services: No Unable to assess alcohol history related to: Refusing to respond Alcohol intake: current Alcohol intake frequency: 3 or more drinks per day Alcohol type: beer and hard liquor Comment: 1 assist to bathroom Patient Tobacco Use Status: Former Tobacco user Tobacco use type: Cigarette Second Hand Smoke Exposure: No Advance Directives: Yes Advance Directives on File: Yes Advance Directives Date on File: 07/13/23 service: No Physical Exam Vital Signs: Vital Signs: Last Vital Signs Temp 98.9 F 06/28/24 15:43 Pulse 72 06/28/24 15:43 Resp 16 06/28/24 15:43 BP 103/56 L 06/28/24 15:43 Pulse Ox 91 L 06/28/24 15:43 O2 Del Method Room Air 06/28/24 15:43 BMI result Body Mass Index 20.6 Appearance: Alert. Oriented X3. Intoxicated, foul-smelling and disheveled HEENT: normal inspection CVS: Normal heart rate and rhythm. Pulses normal. Respiratory: No respiratory distress. Skin: Skin warm and dry. Normal skin color. Normal skin turgor. No rashes. Extremities: Normal inspection of bilateral hands. There is no open wounds or swelling. No deformity. Left hand with mild tenderness of the 1st metacarpal no snuffbox tenderness. Pain with full hand grasp. Neurovascularly intact distally with normal cap refill. Neuro: Oriented X 3 slightly slurred speech consistent with alcohol intoxication, conversant Medical Decision Making Medical Decision Making MDM Narrative: 54-year-old male with severe alcohol use disorder, recurrent ER visits for alcohol intoxication presents to the ER for evaluation of nontraumatic left hand pain. He does have some tenderness on exam, is a poor historian given his heavy alcohol use. X-ray of the hand was performed showing no acute fracture. no swelling, redness or point tenderness. stable for discharge Differential Diagnosis Differential Diagnoses: The differential diagnosis associated with the presentation includes Hand contusion, hand sprain, hand fracture, scaphoid fracture, Independent Interpretation I performed an independent interpretation of an: Plain X-Ray Interpretation: No acute fracture noted, agree with radiology read Radiology Impression Discussion of test interpretation with radiology: I have reviewed the radiologist's reading. Radiologist Impression: EXAMINATION: XR HAND, LEFT CLINICAL INFORMATION: Swollen hand. No injury. COMPARISON: None available. TECHNIQUE: PA, lateral, and oblique views of the left hand. FINDINGS: The osseous structures appear somewhat demineralized. There is no fracture or dislocation. There is narrowing of the interphalangeal joints of all 5 digits. The regional soft tissue appears normal. No radiopaque foreign object is identified. XR/XR hand LT min 3V IMPRESSION: The osseous structures appear demineralized. There is no fracture or dislocation. Independent Historian Clinical information obtained from an independent historian. History obtained from or confirmed by: EMS External Record Review External record reviewed: Outpatient record, Prior outpatient labs and Prior outpatient radiology Prescription Management I considered prescription management with: Pain Medication Chronic Conditions Patient?s care impacted by: Other (ETOH use disorder) Social Determinants Patient?s care significantly limited by Social Determinants of Health including: Inadequate housing, Alcoholism and drug addiction in family, Problems related to primary support group and Other Social Determinant of Health Critical Care Time Critical Care Time Critical Care Time: No Discharge Plan Discharge Clinical Impression: Hand pain, left Patient Disposition: Home, Self-Care Instructions: Arthralgia (ED) Additional Instructions: Your x-ray today was normal Do not drink alcohol, recommend detox Prescriptions: No Action acetaminophen [Tylenol] 325 mg capsule 325 mg PO Q4H PRN (Reason: pain) Qty: 30 0RF multivitamin [Daily-Barry] Tablet 1 tab PO DAILY Qty: 90 0RF folic acid 1 mg Tablet 1 mg PO DAILY Qty: 90 0RF thiamine HCl (vitamin B1) 100 mg tablet 100 mg PO DAILY Qty: 90 0RF amoxicillin-pot clavulanate 875-125 mg tablet 1 tab PO BID Qty: 8 0RF azithromycin 250 mg tablet See Rx Instructions .ROUTE .COMPLEX Qty: 6 0RF Rx Instructions: For 250 mg dose pack: take 500 mg today (day 1), then 250 mg for 4 days (days 2-5) doxycycline hyclate 100 mg capsule 100 mg PO BID 7 Days Qty: 14 0RF Print Language: Gabonese
[2024-06-28 15:33] VITALS: BMI 20.6
[2024-06-28 15:43] VITALS: BP 103/56; PULSE 72; RESP 16; TEMP 37.2; O2SAT 91
[2024-06-28 16:33] VITALS: BP 103/56; PULSE 77; RESP 18; TEMP 37.2; O2SAT 92
--- NOTE | 2024-06-28 16:34 | PC.NURSE ---
Discharge plan reviewed with patient who verbalized understanding, patient with steady gait left ED
== END 2024-06-28 16:34 | disposition home or self-care (01) ==
PROVIDERS: Emergency Provider Emergency Medicine
DX: M79.642 Pain in left hand (principal)
CPT/HCPCS: 73130; 99282; 99283

== ENCOUNTER 2024-06-30 15:07 | Emergency (ER) | payer MEDICAID, SELFPAY ==
--- NOTE | 2024-06-30 15:13 | ED.GENADULT ---
HPI - General Adult General Chief complaint: ETOH/Substance Use Stated complaint: ETOH Time Seen by Provider: 06/30/24 15:08 Source: patient and EMS Mode of arrival: EMS Limitations: other (intoxicated ) History of Present Illness ED Provider: Cody VIVAR narrative: 54-year-old male history of alcohol use disorder, esophageal varices, hepatic encephalopathy, presents w/ cc of alcohol intoxication. He reports he was just drinking and was brought in today. He states nothing is hurting him. He is just hungry. Denies any medical complaints. No a/c trauma. Denies chest pain, shortness breath, nausea vomiting, abdominal pain, headache, vision changes, dizziness and weakness. Related Data Previous Rx's ?Medication ?Instructions ?Recorded acetaminophen 325 mg capsule 325 mg PO Q4H PRN pain #30 caps 03/13/24 (Tylenol) amoxicillin 875 mg-potassium 1 tab PO BID #8 tabs 05/05/24 clavulanate 125 mg tablet folic acid 1 mg tablet 1 mg PO DAILY #90 tabs 05/05/24 multivitamin (Daily-Barry tablet) 1 tab PO DAILY #90 tabs 05/05/24 thiamine HCl (vitamin B1) 100 mg 100 mg PO DAILY #90 tabs 05/05/24 tablet azithromycin 250 mg tablet See Rx Instructions PO .COMPLEX #6 05/11/24 tabs doxycycline hyclate 100 mg capsule 100 mg PO BID 7 days #14 caps 05/11/24 Allergies Allergy/AdvReac Type Severity Reaction Status Date / Time No Known Allergies Allergy Verified 06/30/24 15:17 [No Known Allergies*] Review of Systems Review of Systems: Yes all other systems are reviewed and are negative PMFSH Past Medical History Attestation statement: The following information was validated with the patient. Source: old records reviewed and nursing notes reviewed Medical History Thrombocytopenia Aspiration pneumonia Malnutrition CHF (congestive heart failure) Anemia Hypomagnesemia Cirrhosis Thrombocytopenia Alcoholic liver disease Acute on chronic anemia CHF (congestive heart failure) Anemia Pneumonia Alcohol abuse Alcohol withdrawal syndrome Surgical History No history of previous surgery Social History Social History Household Members: None Household Members Other:: pt homeless Housing: Homeless Housing Other:: homeless Do you presently have visiting nurse or other home services: No Unable to assess alcohol history related to: Refusing to respond Alcohol intake: current Alcohol intake frequency: 3 or more drinks per day Alcohol type: beer and hard liquor Comment: 1 assist to bathroom Patient Tobacco Use Status: Former Tobacco user Tobacco use type: Cigarette Second Hand Smoke Exposure: No Advance Directives: Yes Advance Directives on File: Yes Advance Directives Date on File: 07/13/23 service: No Physical Exam ED Vital Signs: Vital Signs - 24 hr 06/30/24 15:16 Temperature 98.3 F Pulse Rate 85 Respiratory Rate 18 Blood Pressure 128/65 Pulse Oximetry 94 Oxygen Delivery Method Room Air BMI result Body Mass Index 19.0 vss Appearance: Alert.? Oriented X3.? No acute distress.? Head: Normocephalic, atraumatic, no step-offs or deformities Eyes: Pupils equal, round and reactive to light.? Neck: Normal inspection.? Neck supple.? CVS: Normal heart rate and rhythm.? Pulses normal.? Respiratory: No respiratory distress.? Breath sounds normal.? Abdomen: Soft and nontender.? Skin: Skin warm and dry.? Normal skin color.? Normal skin turgor.? Extremities: No lower extremity edema.? No calf ttp. 5/5 strength to bilateral upper and lower extremities Neuro: Oriented X 3.? No motor deficit.? No sensory deficit. CN 2-12 intact Course Reevaluation(s) Reevaluation #1: Patient refusing labs and screaming i hate needles . Plan- patient to be placed in obs to allow more time for sobriety. Teja WALLACE aware of plan Time: 15:51 Reevaluation #2: June 30, 2024, 4:00 p.m. receive sign-out with the patient in stable condition pending sober reassessment. 8:00 p.m. patient resting comfortably at this time. Pending sober reassessment. No evidence of withdrawal. 9:45 p.m. patient resting comfortably at this time. He is awake and alert. Repeat assessment for clinically sober discharge. Patient signed out in stable condition to Dr. Ferguson pending reassessment. Medical Decision Making Medical Decision Making MDM Narrative: 54-year-old male presents after being found sleeping outside by fire Department, patient reports he was drinking and fell asleep. No reported trauma. No SI or HI Physical exam benign History and physical exam concerning for alcohol intoxication versus polysubstance abuse. Unlikely metabolic derangements. No signs of trauma head, neck, chest, abdomen or pelvis. Plan at this time medical clearance. Patient to be discharged when clinically sober. Differential Diagnosis Differential Diagnoses: The differential diagnosis associated with the presentation includes History and physical exam concerning for alcohol intoxication versus polysubstance abuse. Unlikely metabolic derangements. No signs of trauma head, neck, chest, abdomen or pelvis. Admission/Observation Consideration of admission/observation: Escalation of care including admission/observation considered Lab Data MDM Lab Attestation statement: I reviewed the patient's lab results. Tests considered The following testing was considered but not selected: no reported falls, no trauma. No signs of trauma, neuro nonfocal no need for head CT Chronic Conditions Patient?s care impacted by: Other (alcohol use disorder. ) Social Determinants Patient?s care significantly limited by Social Determinants of Health including: Inadequate housing, Low income, Alcoholism and drug addiction in family, Problems related to primary support group, Unemployment, Problems related to employment and Other Social Determinant of Health Discharge Plan Discharge Clinical Impression: Alcohol use disorder Patient Disposition: Still a Patient Prescriptions: No Action acetaminophen [Tylenol] 325 mg capsule 325 mg PO Q4H PRN (Reason: pain) Qty: 30 0RF multivitamin [Daily-Barry] Tablet 1 tab PO DAILY Qty: 90 0RF folic acid 1 mg Tablet 1 mg PO DAILY Qty: 90 0RF thiamine HCl (vitamin B1) 100 mg tablet 100 mg PO DAILY Qty: 90 0RF amoxicillin-pot clavulanate 875-125 mg tablet 1 tab PO BID Qty: 8 0RF azithromycin 250 mg tablet See Rx Instructions .ROUTE .COMPLEX Qty: 6 0RF Rx Instructions: For 250 mg dose pack: take 500 mg today (day 1), then 250 mg for 4 days (days 2-5) doxycycline hyclate 100 mg capsule 100 mg PO BID 7 Days Qty: 14 0RF Print Language: Mosotho
[2024-06-30 15:16] VITALS: BP 128/65; BP 142/70; PULSE 68; PULSE 85; RESP 18; TEMP 36.8; O2SAT 94; O2SAT 95; BMI 19.0
--- NOTE | 2024-06-30 19:46 | MHC.EDTECH ---
Upon taking over care for patient this tech was informed to not disturb patient while sleeping to draw labs.
[2024-07-01 01:18] VITALS: BP 85/43; PULSE 78; RESP 16; TEMP 36.7; O2SAT 93
[2024-07-01 01:29] LABS: Basophils Percent Auto 1.5 % (0-2); Eosinophils Absolute Auto 0.1 X10*3/uL (0.0-0.4); Eosinophils Percent Auto 2.9 % (0-4); Hematocrit 31.8 % (42.0-52.0); Hemoglobin 10.7 g/dl (14.0-18.0); Imm Gran Abs Auto 0.01 X10*3/uL (0.00-0.03); Imm Gran Pct Auto 0.4 % (0.0-0.4); Lymphocytes Absolute Auto 0.7 X10*3/uL (1.2-4.9); Lymphocytes Percent Auto 24.2 % (20-40); MANUAL DIFF FLAG NO; Mean Corpuscular HGB Conc 33.6 g/dl (31.0-36.0); Mean Corpuscular Volume 95.2 fL (80.0-98.0); Mean Platelet Volume 11.3 fL (9.4-12.4); Monocytes Absolute Auto 0.3 X10*3/uL (0.1-1.2); Monocytes Percent Auto 11.4 % (2-11); Neutrophils Absolute Auto 1.6 x10*3/uL (2.0-8.3); Neutrophils Percent Auto 59.6 % (45-73); Red Blood Count 3.34 X10*6/uL (4.60-5.80); Red Cell Distribution Width 19.4 % (11.0-16.0); White Blood Count 2.7 X10*3/uL (4.8-10.8)
[2024-07-01 01:30] VITALS: BP 95/53
[2024-07-01 01:32] LABS: Platelet Count 33 X10*3/uL (160-400)
[2024-07-01 01:40] LABS: Amphetamine Screen Urine Not Detected (Not Detect); Barbiturates, Urine Not Detected (Not Detect); Benzodiazepines Screen Urine Not Detected (Not Detect); Buprenorphine Scr Not Detected (Not Detect); Cannabinoid Screen Urine Not Detected (Not Detect); Cocaine Screen Urine Not Detected (Not Detect); Fentanyl, urine Not Detected (Not Detect); Methadone Screen, Urine Not Detected (Not Detect); Opiate Screen Urine Not Detected (Not Detect); Oxycodone Screen Urine Not Detected (Not Detect); Phencyclidine Screen Urine Not Detected (Not Detect)
[2024-07-01 01:48] LABS: Alanine Aminotransferase 22 U/L (0-40); Albumin Level 3.1 g/dL (3.5-5.0); Alkaline Phosphatase 182 U/L (39-117); Anion Gap 18 (12-20); Aspartate Amino Transferase 115 U/L (5-37); Bilirubin Total 1.4 mg/dL (0.0-1.0); Blood Urea Nitrogen 6 mg/dL (9-16); Calcium 8.4 mg/dL (8.4-10.2); Carbon Dioxide 19 mmol/L (22-29); Chloride 111 mmol/L (96-108); Creatinine Clr Calc Pharmacy 91.5; Estimated Glomerular Filt Rate > 60; Ethanol 283 mg/dL; Glucose Random 82 mg/dL (60-115); Magnesium 1.7 mg/dL (1.6-2.6); Potassium 4.6 mmol/L (3.3-5.1); Sodium 143 mmol/L (135-145); Total Protein 7.9 g/dL (6.5-8.0)
[2024-07-01 06:35] VITALS: BP 95/53; PULSE 78; RESP 16; TEMP 36.7; O2SAT 95
== END 2024-07-01 06:37 | disposition home or self-care (01) ==
PROVIDERS: Physician Assistant; Emergency Provider Emergency Medicine
DX: F10.129 Alcohol abuse with intoxication, unspecified (principal); F19.90 Other psychoactive substance use, unspecified, uncomplicated; Y90.8 Blood alcohol level of 240 mg/100 ml or more; Z79.899 Other long term (current) drug therapy
CPT/HCPCS: 36415; 80053; 80307; 83735; 85025; 99284

== ENCOUNTER 2024-07-03 20:35 | Emergency (ER) | payer MEDICAID, SELFPAY ==
--- NOTE | ~2024-07-03 | XR_ITS ---
EXAMINATION: XR CHEST CLINICAL INFORMATION: Shortness of breath COMPARISON: Chest radiograph May 02, 2024 TECHNIQUE: Frontal view of the chest was obtained. FINDINGS: No significant abnormality is noted involving the heart, lungs, mediastinum, bony thorax or soft tissues. XR/XR chest 1V IMPRESSION: Unremarkable examination. Electronically signed by: Juancarlos Hatch MD 07/03/2024 09:29 PM EDT RP
--- NOTE | ~2024-07-03 | CT_ITS ---
EXAMINATION: CT CERVICAL SPINE WITHOUT CONTRAST CLINICAL INFORMATION: Trauma. Fall. Pain. COMPARISON: CT of the cervical spine April 2024 TECHNIQUE: CT scan cervical spine with Reconstruction imaging performed at the acquisition workstation. This CT examination was performed using dose optimization techniques as appropriate, variously including the following: *Automated exposure control *Adjustment of mA and/or kV according to patient size (this includes techniques or standardized protocols for targeted exams where dose is matched to indication/reason for exam; i.e. extremities or head) *Use of iterative reconstruction technique DLP: 971 mGy-cm FINDINGS: Vertebral bodies well aligned with normal height. No fracture or dislocation. Facets normal. Surrounding soft tissues normal. Lung apices normal. CT/CT cervical spine wo IV con IMPRESSION: Unremarkable examination. Fleischner guidelines were followed. Electronically signed by: Elbert Garcia MD 07/03/2024 09:55 PM EDT
--- NOTE | ~2024-07-03 | CT_ITS ---
EXAMINATION: CT HEAD WITHOUT CONTRAST CLINICAL INFORMATION: Trauma. Fall pain COMPARISON: None available. TECHNIQUE: Contiguous axial imaging was performed from the skull base to vertex without intravenous administration of contrast. This CT examination was performed using dose optimization techniques as appropriate, variously including the following: *Automated exposure control *Adjustment of mA and/or kV according to patient size (this includes techniques or standardized protocols for targeted exams where dose is matched to indication/reason for exam; i.e. extremities or head) *Use of iterative reconstruction technique DLP: 662 mGy-cm FINDINGS: There is no mass hemorrhage or cerebral edema. The ventricles and basilar cisterns are normal. No extra-axial fluid collections. Soft tissue/scalp: Normal. Bones/calvarium: Normal. Sinuses: Normal. Mastoid air cells normal. CT/CT head/brain wo IV con IMPRESSION: No acute intracranial pathology. Electronically signed by: Elbert Garcia MD 07/03/2024 09:53 PM EDT
[2024-07-03 20:44] VITALS: BP 124/72; BP 129/76; PULSE 70; PULSE 71; RESP 16; TEMP 36.4; O2SAT 87; O2SAT 97; BMI 25.1
[2024-07-03 22:00] VITALS: BP 110/62; PULSE 76; RESP 14; O2SAT 93
[2024-07-04 00:44] VITALS: BP 110/62; PULSE 55; RESP 16; TEMP 36.7; O2SAT 95
--- NOTE | 2024-07-04 00:47 | MHC.EDTECH ---
This Pct assumed care of Patient at 2315 ,Pt was sleeping ,woke asked for urinal ,Void 550 ml ,vitals taken ,Patient comfortable ,no apparent distress noted ,Plan of care continue .
--- NOTE | 2024-07-04 01:40 | ED_ITS ---
HPI - Fall General Chief Complaint: Fall Stated Complaint: ETOH, FALL HEADSTRIKE Time Seen by Provider: 07/03/24 20:39 Source: EMS Limitations: other (Intoxicated) History of Present Illness ED Provider: Trudy Montgomery PA-C HPI Narrative: 54-year-old male with history of homelessness, alcohol abuse, hepatic encephalopathy, esophageal varices presents after fall. Patient sustained a witnessed fall with positive head strike, witnessed by bystanders. EMS in turn was called to the scene. History extremely limited as patient is intoxicated. Related Data Previous Rx's ?Medication ?Instructions ?Recorded acetaminophen 325 mg capsule 325 mg PO Q4H PRN pain #30 caps 03/13/24 (Tylenol) amoxicillin 875 mg-potassium 1 tab PO BID #8 tabs 05/05/24 clavulanate 125 mg tablet folic acid 1 mg tablet 1 mg PO DAILY #90 tabs 05/05/24 multivitamin (Daily-Barry tablet) 1 tab PO DAILY #90 tabs 05/05/24 thiamine HCl (vitamin B1) 100 mg 100 mg PO DAILY #90 tabs 05/05/24 tablet azithromycin 250 mg tablet See Rx Instructions PO .COMPLEX #6 05/11/24 tabs doxycycline hyclate 100 mg capsule 100 mg PO BID 7 days #14 caps 05/11/24 Allergies Allergy/AdvReac Type Severity Reaction Status Date / Time No Known Allergies Allergy Verified 07/03/24 20:52 [No Known Allergies*] Review of Systems Review of Systems: Unable to obtain due to clinical intoxication PMFSH Past Medical History Attestation statement: The following information was validated with the patient. Medical History Thrombocytopenia Aspiration pneumonia Malnutrition CHF (congestive heart failure) Anemia Hypomagnesemia Cirrhosis Thrombocytopenia Alcoholic liver disease Acute on chronic anemia CHF (congestive heart failure) Anemia Pneumonia Alcohol abuse Alcohol withdrawal syndrome Surgical History No history of previous surgery Social History Social History Household Members: None Household Members Other:: pt homeless Housing: Homeless Housing Other:: homeless Do you presently have visiting nurse or other home services: No Unable to assess alcohol history related to: Refusing to respond Alcohol intake: current Alcohol intake frequency: 3 or more drinks per day Alcohol type: beer and hard liquor Comment: 1 assist to bathroom Patient Tobacco Use Status: Former Tobacco user Tobacco use type: Cigarette Second Hand Smoke Exposure: No Advance Directives: Yes Advance Directives on File: Yes Advance Directives Date on File: 07/13/23 Do you have a plan to hurt others: No Plan service: No Physical Exam Vital Signs: Vital Signs: Last Vital Signs Temp 98.1 F 07/04/24 00:44 Pulse 55 07/04/24 00:44 Resp 16 07/04/24 00:44 BP 110/62 07/04/24 00:44 Pulse Ox 95 07/04/24 00:44 O2 Del Method Room Air 07/04/24 00:44 BMI result Body Mass Index 25.1 Const: Other: Sleepy on stretcher we will blanket over his head, wakens easily with verbal stimuli, no sign of head trauma on exam Orientation/consciousness: oriented to person HEENT: Other: Dry oral mucosa, alcohol halitosis Resp: Other: Nonlabored respiration Cardio: Other: Normal peripheral perfusion Skin: Other: Warm dry no rash Neuro: General: oriented to person, no focal motor deficits and CN's II-XI intact bilaterally Psych: Other: Intoxicated, somewhat belligerent on arrival, he has since become cooperative Medical Decision Making Medical Decision Making MDM Narrative: 54-year-old male with history of homelessness, alcohol abuse, hepatic encephalopathy, esophageal varices presents after fall. Patient sustained a witnessed fall with positive head strike, witnessed by bystanders. EMS in turn was called to the scene. History extremely limited as patient is intoxicated. Problem: Alcohol abuse and housing and security History: Per patient I have considered the following differential diagnoses: Intracranial hemorrhage, cervical spine injury, alcohol intoxication Plan: We will be scanning of the patient's head and neck, he had a witnessed fall. Nursing was concerned that the patient may have pneumonia, apparently he often has pneumonia. He had a transient low oxygen saturation, he is on room air and is 97%. We will obtain a chest x-ray. He likely often has aspiration pneumonia secondary to his alcohol abuse. We will hold the patient in the emergency room for his safety, until he is clinically sober. I have independently reviewed the following tests: Chest x-ray:R CHEST CLINICAL INFORMATION: Shortness of breath COMPARISON: Chest radiograph May 02, 2024 TECHNIQUE: Frontal view of the chest was obtained. FINDINGS: No significant abnormality is noted involving the heart, lungs, mediastinum, bony thorax or soft tissues. XR/XR chest 1V IMPRESSION: Unremarkable examination. CT brain: CT HEAD WITHOUT CONTRAST CLINICAL INFORMATION: Trauma. Fall pain COMPARISON: None available. TECHNIQUE: Contiguous axial imaging was performed from the skull base to vertex without intravenous administration of contrast. This CT examination was performed using dose optimization techniques as appropriate, variously including the following: *Automated exposure control *Adjustment of mA and/or kV according to patient size (this includes techniques or standardized protocols for targeted exams where dose is matched to indication/reason for exam; i.e. extremities or head) *Use of iterative reconstruction technique DLP: 662 mGy-cm FINDINGS: There is no mass hemorrhage or cerebral edema. The ventricles and basilar cisterns are normal. No extra-axial fluid collections. Soft tissue/scalp: Normal. Bones/calvarium: Normal. Sinuses: Normal. Mastoid air cells normal. CT/CT head/brain wo IV con IMPRESSION: No acute intracranial pathology. CT cervical spine:CT CERVICAL SPINE WITHOUT CONTRAST CLINICAL INFORMATION: Trauma. Fall. Pain. COMPARISON: CT of the cervical spine April 2024 TECHNIQUE: CT scan cervical spine with Reconstruction imaging performed at the acquisition workstation. This CT examination was performed using dose optimization techniques as appropriate, variously including the following: *Automated exposure control *Adjustment of mA and/or kV according to patient size (this includes techniques or standardized protocols for targeted exams where dose is matched to indication/reason for exam; i.e. extremities or head) *Use of iterative reconstruction technique DLP: 971 mGy-cm FINDINGS: Vertebral bodies well aligned with normal height. No fracture or dislocation. Facets normal. Surrounding soft tissues normal. Lung apices normal. Differential Diagnosis Differential Diagnoses: The differential diagnosis associated with the presentation includes Discharge Plan Discharge Clinical Impression: Alcohol intoxication Patient Disposition: Home, Self-Care Additional Instructions: CT scans of your brain and neck were obtained, there was no acute injury. We also obtain a chest x-ray, there were no rib fractures, no pneumonia. You were held in the emergency department overnight for your safety, until you were sober. Prescriptions: No Action acetaminophen [Tylenol] 325 mg capsule 325 mg PO Q4H PRN (Reason: pain) Qty: 30 0RF multivitamin [Daily-Barry] Tablet 1 tab PO DAILY Qty: 90 0RF folic acid 1 mg Tablet 1 mg PO DAILY Qty: 90 0RF thiamine HCl (vitamin B1) 100 mg tablet 100 mg PO DAILY Qty: 90 0RF amoxicillin-pot clavulanate 875-125 mg tablet 1 tab PO BID Qty: 8 0RF azithromycin 250 mg tablet See Rx Instructions .ROUTE .COMPLEX Qty: 6 0RF Rx Instructions: For 250 mg dose pack: take 500 mg today (day 1), then 250 mg for 4 days (days 2-5) doxycycline hyclate 100 mg capsule 100 mg PO BID 7 Days Qty: 14 0RF Print Language: Korean
[2024-07-04 02:00] VITALS: RESP 16
[2024-07-04 03:57] VITALS: RESP 16
[2024-07-04 06:25] VITALS: BP 110/62; PULSE 55; RESP 16; TEMP 36.7; O2SAT 95
== END 2024-07-04 06:27 | disposition home or self-care (01) ==
PROVIDERS: Emergency Provider Emergency Medicine
DX: F10.129 Alcohol abuse with intoxication, unspecified (principal); Y90.9 Presence of alcohol in blood, level not specified; R06.02 Shortness of breath; S09.90XA Unspecified injury of head, initial encounter; W19.XXXA Unspecified fall, initial encounter; Y93.9 Activity, unspecified; Y92.9 Unspecified place or not applicable; Y99.9 Unspecified external cause status; I50.9 Heart failure, unspecified
CPT/HCPCS: 70450; 71045; 72125; 99283; 99284

== ENCOUNTER 2024-10-12 22:45 | Emergency (ER) | payer MEDICAID, SELFPAY ==
--- NOTE | ~2024-10-12 | XR_ITS ---
EXAMINATION: XR CHEST CLINICAL INFORMATION: soc, hypoxic COMPARISON: July 03, 2024. TECHNIQUE: Frontal view of the chest was obtained. FINDINGS: The cardiomediastinal silhouette is stable. There is mild lower lung field interstitial prominence similar to previous. There is scarring or subsegmental atelectasis at the left lung base. The lungs are otherwise clear. There are significant pleural effusions. The bony structures and the soft tissues are unremarkable. XR/XR chest 1V IMPRESSION: Mild lower lung field interstitial prominence similar to previous. Scarring or subsegmental atelectasis at the left lung base. Electronically signed by: Blaze Eckert MD 10/13/2024 01:35 AM [facility]
[2024-10-12 22:52] VITALS: PULSE 91; O2SAT 94
--- NOTE | 2024-10-12 23:24 | ECG_ITS ---
Test Reason : SOB Blood Pressure : / mmHG Vent. Rate : 083 BPM Atrial Rate : 083 BPM P-R Int : 158 ms QRS Dur : 084 ms QT Int : 408 ms P-R-T Axes : 053 018 019 degrees QTc Int : 479 ms Normal sinus rhythm Normal ECG When compared with ECG of 02-MAY-2024 17:08, No significant change was found Referred By: Alexandria Sweeney Electronically Signed By:EDITA HALE
--- NOTE | 2024-10-12 23:27 | ED_ITS ---
HPI - General Adult General Chief complaint: General Medical Stated complaint: Etoh, leg pain Time Seen by Provider: 10/12/24 23:19 Source: patient and EMS Mode of arrival: EMS Limitations: other History of Present Illness ED Provider: Dr. Alexandria Sweeney HPI narrative: Patient comes to the emergency room via ambulance. Patient was [place], bystander called EMS. When EMS arrived, patient was calm, cooperative. When his vitals were checked at the scene, patient's oxygen saturation was 87%. Patient reports that he has been having shortness of breath, no chest pain. Patient admits that he has been drinking a lot of ETOH. Patient complaining of left lower extremity pain which has been hurting according to the patient for 6 months. Patient denies any recent fever or chills. Related Data Previous Rx's ?Medication ?Instructions ?Recorded acetaminophen 325 mg capsule 325 mg PO Q4H PRN pain #30 caps 03/13/24 (Tylenol) amoxicillin 875 mg-potassium 1 tab PO BID #8 tabs 05/05/24 clavulanate 125 mg tablet folic acid 1 mg tablet 1 mg PO DAILY #90 tabs 05/05/24 multivitamin (Daily-Barry tablet) 1 tab PO DAILY #90 tabs 05/05/24 thiamine HCl (vitamin B1) 100 mg 100 mg PO DAILY #90 tabs 05/05/24 tablet azithromycin 250 mg tablet See Rx Instructions PO .COMPLEX #6 05/11/24 tabs doxycycline hyclate 100 mg capsule 100 mg PO BID 7 days #14 caps 05/11/24 Allergies Allergy/AdvReac Type Severity Reaction Status Date / Time No Known Allergies Allergy Verified 10/12/24 23:40 [No Known Allergies*] Review of Systems 2 Review of Systems: Constitutional : No Weight loss, No Fever, No Chills, No Night Sweats, No Fatigue, No Malaise ENT/Mouth : No Hearing loss, No Ear Pain, No Nasal Congestion, No Sinus Pain, No Hoarseness, No sore throat, No Rhinorrhea, No Swallowing Difficulty Eyes: No Eye Pain, No Swelling, No Redness, No Foreign Body, No Discharge, No Vision Changes Cardiovascular : No Chest Pain, complaining of shortness of breath, no palpitations Respiratory : No Cough, No Sputum, No Wheezing, No Smoke Exposure, No Dyspnea Gastrointestinal : No Nausea, No Vomiting, No Diarrhea, No Constipation, No abdominal Pain, No Hematochezia, No Melena Genitourinary : no irregular bleeding, No Dysuria, No Urinary Frequency, No Hematuria, No Urinary Incontinence, No Urgency, No Flank Pain, No Urinary Flow Changes, No Hesitancy Musculoskeletal : Complaining of chronic left lower pain, Skin : No Skin Lesions, No rash Neuro : No Weakness, No Numbness, No Paresthesias, No Loss of Consciousness, No Dizziness, No Headache Psych : No Anxiety/Panic, No Depression, No SI/HI/AH/VH, admits to alcohol abuse Heme/Lymph: No Bruising, No Bleeding,No Lymphadenopathy Endocrine : No Polyuria, No Polydipsia, No Temperature Intolerance [facility] Past Medical History Medical History Thrombocytopenia Aspiration pneumonia Malnutrition CHF (congestive heart failure) Anemia Hypomagnesemia Cirrhosis Thrombocytopenia Alcoholic liver disease Acute on chronic anemia CHF (congestive heart failure) Anemia Pneumonia Alcohol abuse Alcohol withdrawal syndrome Surgical History No history of previous surgery Social History Social History Household Members: None Household Members Other:: pt homeless Housing: Homeless Housing Other:: homeless Do you presently have visiting nurse or other home services: No Unable to assess alcohol history related to: Refusing to respond Alcohol intake: current Alcohol intake frequency: 3 or more drinks per day Alcohol type: beer and hard liquor Comment: 1 assist to bathroom Patient Tobacco Use Status: Former Tobacco user Tobacco use type: Cigarette Second Hand Smoke Exposure: No Advance Directives: Yes Advance Directives on File: Yes Advance Directives Date on File: 07/13/23 Do you have a plan to hurt others: No Plan service: No Physical Exam ED Vital Signs: Vital Signs - 24 hr 10/12/24 23:31 10/12/24 23:35 10/13/24 01:01 Temperature 97.9 F 97.9 F 97.6 F Pulse Rate 96 63 81 Respiratory Rate 20 19 15 Blood Pressure 111/62 110/66 Pulse Oximetry 93 94 95 Oxygen Delivery Method Nasal Cannula Nasal Cannula Nasal Cannula Oxygen Flow Rate 2 2 10/13/24 02:37 Temperature 97.6 F Pulse Rate 91 Respiratory Rate 15 Blood Pressure 101/58 L Pulse Oximetry 94 Oxygen Delivery Method Nasal Cannula Oxygen Flow Rate 2 BMI result Body Mass Index 19.4 Const Other: Appearance: Alert. Oriented X3. No acute distress. Patient is intoxicated, answering most questions appropriately Eyes: Pupils equal, round and reactive to light. ENT: Pharynx normal. Neck: Normal inspection. Neck supple. No lymph nodes noted. No crepitus CVS: Normal heart rate and rhythm. Pulses normal. Normal S1 and S2 Respiratory: No respiratory distress. Breath sounds normal. No Wheezing. No rales Abdomen: Soft and nontender. No rigidity. No distention. Skin: Skin warm and dry. Normal skin color. Normal skin turgor. Extremities: No lower extremity edema. No Lacerations. No Rash Neuro: Oriented X 3. No motor deficit. No sensory deficit. Moving all extremities. No slurred speech. CN 2 through 12 grossly intact Psych: calm, cooperative, normal affect Course Course Course Narrative: -according to patient's nurse, on arrival patient's oxygen saturation was 87%. Patient was put on 2 L of oxygen. -patient's labs and imaging pending Medical Decision Making Medical Decision Making [facility] Narrative: Patient is more awake now, patient was taking off of oxygen, oxygen saturation constantly 95% on room air. -patient's hematology at baseline: Blood gases normal, potassium 3.1, repleted p.o., lactic 2.2, likely secondary to alcohol abuse -patient was given p.o. magnesium and potassium -chest x-ray: No EKG changes -patient's legs look at baseline: No calf tenderness. DVT not suspected. Physician observation started at 04:40 Differential Diagnosis Differential Diagnoses: The differential diagnosis associated with the presentation includes (Alcohol intoxication, polysubstance abuse, pneumonia, viral URI) Lab Data [facility] Lab Attestation statement: I reviewed the patient's lab results. 10/12/24 23:56 10/12/24 23:58 Labs: Lab Results 10/12/24 10/12/24 10/12/24 Range/Units 23:55 23:56 23:58 WBC 3.7 L (4.8-10.8) X10*3/uL RBC 2.83 L (4.60-5.80) X10*6/uL Hgb 9.7 L (14.0-18.0) g/dl Hct 29.5 L (42.0-52.0) % MCV 104.2 H (80.0-98.0) fL MCH 34.3 H (27.0-33.0) pg MCHC 32.9 (31.0-36.0) g/dl RDW 17.0 H (11.0-16.0) % Plt Count 30 L (160-400) X10*3/uL MPV 12.1 (9.4-12.4) fL Immature Gran % (Auto) 1.1 H (0.0-0.4) % Neut % (Auto) 62.8 (45-73) % Lymph % (Auto) 20.8 (20-40) % [place] % (Auto) 12.6 H (2-11) % Eos % (Auto) 1.6 (0-4) % Baso % (Auto) 1.1 (0-2) % Lymph # (Auto) 0.8 L (1.2-4.9) X10*3/uL [place] # (Auto) 0.5 (0.1-1.2) X10*3/uL Eos # (Auto) 0.1 (0.0-0.4) X10*3/uL Baso # (Auto) 0.0 (0.0-0.2) X10*3/uL Abs Immat Gran (auto) 0.04 H (0.00-0.03) X10*3/uL Absolute Neuts (auto) 2.3 (2.0-8.3) x10*3/uL Absolute Nucleated RBC 0.000 (0.0-0.012) X10*3/uL Nucleated RBC % (auto) 0.0 (0.0-0.2) /100WBC PT 16.1 H (10.9-12.4) SEC INR 1.4 H (0.9-1.1) VBG pH (7.32-7.43) VBG pCO2 mmHg VBG pO2 mmHg VBG HCO3 (22-26) mmol/L VBG O2 Saturation % VBG Base Excess mmol/L Sodium 141 (135-145) mmol/L Potassium 3.1 L D (3.3-5.1) mmol/L Chloride 111 H (96-108) mmol/L Carbon Dioxide 21 L (22-29) mmol/L Anion Gap 12 (12-20) BUN 10 (9-16) mg/dL Creatinine 0.88 (0.5-1.4) mg/dL Estim Creat Clear Calc 72.9 Estimated GFR > 60 Random Glucose 119 H (60-115) mg/dL Lactic Acid 2.2 H* (0.5-2.0) mmol/L Lactic Acid F/U @ 2Hr (0.5-2.0) mmol/L Calcium 8.5 (8.4-10.2) mg/dL Magnesium 1.5 L (1.6-2.6) mg/dL Total Bilirubin 1.4 H (0.0-1.0) mg/dL Direct Bilirubin 0.8 H (0.0-0.5) mg/dL AST 196 H (5-37) U/L ALT 26 (0-40) U/L Alkaline Phosphatase 195 H (39-117) U/L Troponin I High Sens 3.5 (<3.5-35.0) ng/L B-Natriuretic Peptide 134 H (<100) pg/mL Total Protein 8.8 H (6.5-8.0) g/dL Albumin 2.6 L (3.5-5.0) g/dL TSH 2.69 (0.32-4.0) uIU/mL Ethyl Alcohol 405 H* mg/dL COVID-19 ([facility]) (Negative) COVID-19 Clin Com Influenza Type A ([place]) (Negative) Influenza Type B ([place]) (Negative) Influenza A & B Note 10/12/24 10/13/24 10/13/24 Range/Units 23:59 00:08 02:37 WBC (4.8-10.8) X10*3/uL RBC (4.60-5.80) X10*6/uL Hgb (14.0-18.0) g/dl Hct (42.0-52.0) % MCV (80.0-98.0) fL MCH (27.0-33.0) pg MCHC (31.0-36.0) g/dl RDW (11.0-16.0) % Plt Count (160-400) X10*3/uL MPV (9.4-12.4) fL Immature Gran % (Auto) (0.0-0.4) % Neut % (Auto) (45-73) % Lymph % (Auto) (20-40) % [place] % (Auto) (2-11) % Eos % (Auto) (0-4) % Baso % (Auto) (0-2) % Lymph # (Auto) (1.2-4.9) X10*3/uL [place] # (Auto) (0.1-1.2) X10*3/uL Eos # (Auto) (0.0-0.4) X10*3/uL Baso # (Auto) (0.0-0.2) X10*3/uL Abs Immat Gran (auto) (0.00-0.03) X10*3/uL Absolute Neuts (auto) (2.0-8.3) x10*3/uL Absolute Nucleated RBC (0.0-0.012) X10*3/uL Nucleated RBC % (auto) (0.0-0.2) /100WBC PT (10.9-12.4) SEC INR (0.9-1.1) VBG pH 7.44 H (7.32-7.43) VBG pCO2 35 mmHg VBG pO2 88 mmHg VBG HCO3 25 (22-26) mmol/L VBG O2 Saturation 95.0 % VBG Base Excess 1.3 mmol/L Sodium (135-145) mmol/L Potassium (3.3-5.1) mmol/L Chloride (96-108) mmol/L Carbon Dioxide (22-29) mmol/L Anion Gap (12-20) BUN (9-16) mg/dL Creatinine (0.5-1.4) mg/dL Estim Creat Clear Calc Estimated GFR Random Glucose (60-115) mg/dL Lactic Acid (0.5-2.0) mmol/L Lactic Acid F/U @ 2Hr 1.5 (0.5-2.0) mmol/L Calcium (8.4-10.2) mg/dL Magnesium (1.6-2.6) mg/dL Total Bilirubin (0.0-1.0) mg/dL Direct Bilirubin (0.0-0.5) mg/dL AST (5-37) U/L ALT (0-40) U/L Alkaline Phosphatase (39-117) U/L Troponin I High Sens (<3.5-35.0) ng/L B-Natriuretic Peptide (<100) pg/mL Total Protein (6.5-8.0) g/dL Albumin (3.5-5.0) g/dL TSH (0.32-4.0) uIU/mL Ethyl Alcohol mg/dL COVID-19 ([facility]) Negative (Negative) COVID-19 Clin Com See Note Influenza Type A ([place]) Negative (Negative) Influenza Type B ([place]) Negative (Negative) Influenza A & B Note See Note Independent Interpretation I performed an independent interpretation of an: Plain X-Ray Radiology Impression Discussion of test interpretation with radiology: I have reviewed the radiologist's reading. Radiologist Impression: The cardiomediastinal silhouette is stable. There is mild lower lung field interstitial prominence similar to previous. There is scarring or subsegmental atelectasis at the left lung base. The lungs are otherwise clear. There are significant pleural effusions. The bony structures and the soft tissues are unremarkable. Critical Care Time Critical Care Time Critical Care Time: Yes Total Critical Care Time: 45 Attestation: I have personally provided critical care time. Time includes review of lab data, radiology results, discussion with consultants, and monitoring for potential decompensation. Intervention performed as documented. Discharge Plan Discharge Clinical Impression: Alcohol intoxication Patient Disposition: Home, Self-Care Instructions: Alcohol Intoxication (ED) Additional Instructions: Please follow-up with your primary care physician tomorrow. If you have any worsening or new symptoms, please return to the emergency room or call 911 Prescriptions: No Action acetaminophen [Tylenol] 325 mg capsule 325 mg PO Q4H PRN (Reason: pain) Qty: 30 0RF multivitamin [Daily-Barry] Tablet 1 tab PO DAILY Qty: 90 0RF folic acid 1 mg Tablet 1 mg PO DAILY Qty: 90 0RF thiamine HCl (vitamin B1) 100 mg tablet 100 mg PO DAILY Qty: 90 0RF amoxicillin-pot clavulanate 875-125 mg tablet 1 tab PO BID Qty: 8 0RF azithromycin 250 mg tablet See Rx Instructions .ROUTE .COMPLEX Qty: 6 0RF Rx Instructions: For 250 mg dose pack: take 500 mg today (day 1), then 250 mg for 4 days (days 2-5) doxycycline hyclate 100 mg capsule 100 mg PO BID 7 Days Qty: 14 0RF Print Language: Georgian
[2024-10-12 23:31] VITALS: BP 111/62; PULSE 96; RESP 20; TEMP 36.6; O2SAT 93; BMI 19.4
[2024-10-12 23:35] VITALS: BP 110/66; PULSE 63; RESP 19; TEMP 36.6; O2SAT 94
--- OUTSIDE RECORDS SUMMARY | 2024-10-13 00:05 | XMS_ITS | Continuity of Care Document ---
Author Organization [facility] ter Address [address] [place] [address]- Care Team Providers Care Data Analyst Etl Developer Name Role Phone Not on Staff, PCP Primary Care Physician Unavail able Encounter [facility] Date(s): 03/28/24 - 03/28/[address] [address]- Encounter Diagnosis Alcohol intoxication(Final) - 03/28/24 Discharge Disposition: A-D/C Home Attending Physician: Alexandrea Perry DO Admitting Physician: Alexandrea Perry DO Referring Physician: Not on Staff, Referring MD Allergies, Adverse Reactions, Alerts No Known Allergies Results Radiology Reports * Exam Date Time Procedure Performing Provider Status 03/28/24 3:08 AM US Doppler Ext Lower Venous Bilat Deepak Diaz; Westley (Verified) Notes: (US Doppler Ext Lower Venous Bilat) Reason For Exam: Pain in limb;Other: RESULT: US Doppler Ext Lower Venous Bilat US Doppler Ext Lower Venous Bilat Hx of Present Illness: Pt ETOH complaining of l leg pain from walking; Reason: Other:; Pain in limb; Clinical Question(s): Thrombosis COMPARISON: None IMAGING TECHNIQUE: Ultrasound of the veins from the groin through the calf was performed using grayscale, color, and spectral Doppler ultrasound assessing for complete compressibility and normal flowcharacteristics. FINDINGS: RIGHT LOWER EXTREMITY: Common femoral vein: Patent. No thrombosis. Femoral vein: Patent. No thrombosis. Popliteal vein: Patent. No thrombosis. Gastrocnemius veins: The visualized portions are patent without evidence of thrombosis. Peroneal veins: The visualized portions are patent without evidence of thrombosis. Posterior tibial veins: The visualized portions are patent without evidence of thrombosis. LEFT LOWER EXTREMITY: Common femoral vein: Patent. No thrombosis. Femoral vein: Patent. No thrombosis. Popliteal vein: Patent. No thrombosis. Gastrocnemius veins: The visualized portions are patent without evidence of thrombosis. Peroneal veins: The visualized portions are patent without evidence of thrombosis. Posterior tibial veins: The visualized portions are patent without evidence of thrombosis. OTHER FINDINGS: There is diffuse calf edema. IMPRESSION: No evidence of deep venous thrombosis. I have personally reviewed the images and I agree with this report. WSN: [id number] Ordering Physician: Alexandrea Perry Dictated By: Adair Banegas MD Dictated Date/Time: 03/28/24 5:36 am Reviewed By: Jude Sánchez MD Signed By: Jude Sánchez MD Signed Date/Time: 03/28/24 5:41 am Transcribed By: DEWAYNE Transcribed Date/Time: 03/28/24 3:12 am * Exam Date Time Procedure Performing Provider Status 03/28/24 3:08 AM US RUQ Deepak Lima; Westley (Evan ified) Notes: (US RUQ) Reason For Exam: Abdominal Pain;Other: RESULT: US RUQ US RUQ Hx of Present Illness: Pt ETOH complaining of l leg pain from walking; Reason: Other:; Abdominal Pain; Clinical Question(s): Cholecystitis COMPARISON: US 03/25/2024. FINDINGS: Liver: Normal in size and echotexture. No focal lesion. Nodular hepatic contour. Main portal vein patent with normal hepatopetal direction of flow. Gallbladder: Contracted, with multiple gallstones. Normal wall thickness. No pericholecystic fluid.Negative Booth sign. Biliary Tree: No intrahepatic or extrahepatic bile duct dilation is identified. Common duct measures: 0.3 cm. Pancreas: No abnormality in the visualized portions of the pancreas. Right kidney: 11.1 cm in length. Normal parenchymal echotexture and thickness. No hydronephrosis, stone or mass. IMPRESSION: Cholelithiasis, without specific evidence of acute cholecystitis. Cirrhotic liver. I have personally reviewed the images and I agree with this report. WSN: [id number] Ordering Physician: Alexandrea Perry Dictated By: Adair Banegas MD Dictated Date/Time: 03/28/24 5:48 am Reviewed By: Jude Sánchez MD Signed By: Jude Sánchez MD Signed Date/Time: 03/28/24 5:53 am Transcribed By: DEWAYNE Transcribed Date/Time: 03/28/24 3:11 am Vital Signs Most recent to oldest [Reference Range]: 1 2 Oxygen Saturation [94-100 %] 95 % (03/28/24 5:20 AM) 98 % (03/28/24 1:36 AM) Pulse Rate [55-90 bpm] 78 bpm (03/28/24 5:20 AM) 78 bpm (03/28/24 1:36 AM) Blood Pressure [90-138/55-84 mm Hg] 95/5 6mm Hg (03/28/24 5:20 AM) 141/84mm Hg *H* (03/28/24 1:36 AM) Respiratory Rate [16-30 br/min] 18 br/mi n (03/28/24 5:20 AM) 18 br/min (03/28/24 1:36 AM) Temperature [96.8-100.4 DegF] 98.6 DegF (03/28/24 1:36 AM) Mode of Delivery (Oxygen) Room air (03/28/24 5:20 AM) Room air (03/28/24 1:36 AM) Blood pressure sites Arm, left (03/28/24 1:36 AM) Temperature Route Oral (03/28/24 1:36 AM) Note * Alexandrea Perry DO: PERFORM, SIGN, VERIFY Event Display: Patient Education Handout Authored Date: [id number] * Alexandrea Perry DO: PERFORM Event Display: Patient Education Leaflets Authored Date: [id number] Alcohol Intoxication ?? [id number] Alcohol Intoxication Alcohol intoxication is very serious. It occurs when you drink alcohol faster than your liver can break it down. Severe intoxication is a medical emergency. It's also called alcohol overdose or alcohol poisoning. It can lead to . Here are some grady facts: ??? It can take 10 minutes or more??to start??to??feel the effects of a drink. So it's easy to drink more than you planned. Binge drinking can lead to an alcohol overdose. Binge drinking is having: o5 or more drinks over a short time for men o 4 or more drinks over a short time for women ??? One drink may be more than 1 serving of alcohol. In some cases, a drink can be 2 to 4 servings. This depends on the type of drink. ??? It takes about 1 hour for your body to break down 1 serving of alcohol. If you have more than 1 drink, it can take a few hours or more. ??? People with alcohol abuse disorders are more likely to get alcohol poisoning. But it can happen to anyone who drinks too much alcohol. Even a first-time drinker is at risk. ??? Many things affect how drinks will affect you. These include: o If you've eaten o How fast you drink o Your weight o How much you normally drink (or not)o Medicines you are taking o If you have a chronic disease o If you are male or female o How old you are Symptoms of alcohol intoxication Mild intoxication ??? Feel more relaxed, less tense ??? Slightly slurred speech ??? Sleepiness ??? Poor motor skills Moderate intoxication ??? Changing behavior, aggression, depression ??? Poor judgment ??? Confusion ??? Trouble focusing ??? Poor balance and coordination ??? Worsening slurred speech Severe intoxication ??? Vomiting ??? Seizures ??? Fainting or passing out (unconscious) ??? Cold, clammy skin ??? Slow or irregular breathing ??? Low body temperature (hypothermia) ??? Coma ?? Health effects Alcohol causes health problems.??This can happen after only drinking a little. There is no set number of drinks or amount of alcohol that's too much.??How much you drink at one time affects your health. And so does drinking often. Alcohol affects your whole body in these ways: ??? Brain.??Alcohol can harm parts of the brain that affect your balance, memory, thinking, and feelings. It can cause memory loss, blackouts, depression, agitation, sleep cycle changes, and seizures. These changes may or may not go away. ??? Heart and vascular system.??Alcohol can damage heart muscle. This can cause the heart muscle to weaken and stretch (cardiomyopathy). This can lead to: o Trouble breathing o Irregular heartbeat o Atrial fibrillation o Leg swelling o Heart failure Alcohol also makes the blood vessels stiffen. This causes high blood pressure. All of these problems raise your risk for heart attacks or strokes. ??? Liver.??Alcohol causes fat to build up in the liver. This affects how the liver works. And it raises the risk for hepatitis. This condition leads to belly pain, appetite loss, yellow skin and eyes (jaundice), and bleeding problems. It also leads to harmful changes in the liver. These include??liver fibrosis and cirrhosis. This can affect your ability to fight off infections. These liver changes stop it from removing toxins in your blood. This can cause a brain disease called encephalopathy. ??? Pancreas.??Alcohol can cause inflammation of the pancreas (pancreatitis). It can lead to belly pain, fever, and diabetes. ??? Immune system.??Alcohol weakens your immune system. This makes it harder to fight off infections and colds. You'll also have a higherrisk of some infections. ??? Cancer risk.??Alcohol raises your risk of some types of cancer. They include cancer of the: o Mouth o Esophagus o Pharynx o Larynx o Liver o Breast ? Sexual function.??Alcohol abuse can also lead to sexual problems. There is no safe level of alcohol use for people who are or thinking of getting . Alcohol use in may cause lifelong harm to the baby. So alcohol should be avoided. It can also cause a group of defects called alcohol spectrum disorder. These defects can include physical problems. And also behavior and learning problems. ?? Home care for alcohol intoxication Follow these tips to care for yourself at home: ??? Don't drink any more alcohol. ??? Don't drive??until all effects of the alcohol have worn off. ??? Don't use machinery that can cause injuries. ??? Get lots of rest over the next few days. ??? Drink plenty of water and other drinks that don't have alcohol. ??? Try to eat regular meals. If you have been drinking a lot every day, you may have alcohol withdrawal. Symptoms often last 3 to 4 days. They may include: ??? Nervousness ??? Shakiness ??? Nausea ??? Sweating ??? Sleeplessness They may also include severe, life-threatening symptoms. These are known as delirium tremens (DTs).DTs typically begin between 48 and 96 hours after the last drink and last 1 to 5 days. They include: ??? Seizures ??? Confusion ??? Seeing or hearing things that are not there (hallucinations) Alcohol withdrawal can cause . Call your healthcare provider before you stop drinking. This isespecially important if you've had DTs during past alcohol withdrawals. They may be able to help you with medicine. They can also refer you to an inpatient detox program. Or stay with family or friends who know when to call for medical help and can support you. If you have severe symptoms, call your provider or call 911 for help (see below). ?? Follow-up care These groups can help you and your loved one: ??? Alcoholics Anonymous (A.A.). Gives support through a self-help fellowship. ?? Find A.A. meetings near you at www.aa.org. ??? Al-Anon. ?? Gives support to families at www.al-anon.org . Or call 653-054-4478. ??? SMART Recovery ( Self- Management and Recovery Training). A nationwide abstinence-oriented support group for people with addictive issues. This free program is focused on motivation to change, urge control, and living a balanced life. For more information and meetings near you, go to www.[place].org/ ??? Substance Abuse and Mental Health Services Administration (SAMHSA) Treatment [employer]. Free information on treatment resources in your area at https://findtreatment.gov/. Or call 404-259-8229. Call 911 Call 911 if any of these occur: ??? Trouble breathing or slow irregular breathing ??? Chest pain ??? Sudden weakness on 1 side of your body or sudden trouble speaking ??? Heavy bleeding or vomiting blood ??? Very sleepy or having trouble waking up ??? Fainting ??? Fast heart rate ??? Seizure ?? When to get medical advice Call your healthcare provider right away if any of these occur: ??? Severe shakiness? Fever of100.4??F (38??C) or higher, or as advised by your provider ??? Confusion or hallucinations ??? Painin your upper belly that gets worse ??? Repeated vomiting ?? Last Reviewed Date: 2022 ?? 8713-0663 [employer]. All rights reserved. This information is not intended as a substitute for professional medical care. Always follow your healthcare professional's instructions. ?? Patient Care team information Care Team Personnel Name: Not on Staff, PCP Position: S Physician (General Medicine) Member Role: PCP
--- OUTSIDE RECORDS SUMMARY | 2024-10-13 00:06 | XMS_ITS | Continuity of Care Document ---
Author Organization [facility] Address [address] [place] [address]- Care Team Providers Care Volunteer Services Supervisor Name Role Phone Not on Staff, PCP Primary Care Physician Unavail able Encounter [facility] [place] Date(s): 03/25/24 - 03/25/[address] [address]- Discharge Disposition: A-D/C Home Attending Physician: Baljeet Garza MD Admitting Physician: Baljeet Garza MD Referring Physician: Not on Staff, Referring MD Allergies, Adverse Reactions, Alerts No Known Allergies Results Radiology Reports * Exam Date Time Procedure Performing Provider Status 03/25/24 8:[address] Abd/Pelvis W/ IV Contrast Only Victor Hugo Alejo (Verified) Notes: (CT Abd/Pelvis W/ IV Contrast Only) Reason For Exam: RUQ abdo pain;Other: RESULT: CT Abd/Pelvis W/ IV Contrast Only CT Abd/Pelvis W/ IV Contrast Only Hx of Present Illness: Pt c o right upper abdominal pain for the past week, denies n v. pt denies dysuria. Pt denies sob, c p, fevers chills.; Reason: Other:; RUQ abd pain; Clinical Question(s): Calculus; cholecystitis; Order Comment: TECHNIQUE: Spiral CT through the abdomen and pelvis with IV contrast formatted in 3 planes. 75 cc of Omnipaque 300 was administered intravenously. This study was performed without oral contrast. Weight-based protocol using automatic tube modulation was used to optimize exposure parameters. CTDIvol Body: 11.90 mGy, DLP Body: 612 mGy*cm. COMPARISON: None. Correlation is made with right upper quadrant ultrasound performed earlier today. FINDINGS: [employer] View Findings, Lines and Tubes: None. Visualized Chest: Partially imaged small right gynecomastia. There are linear opacities in left lower lobe, right middle lobe, and lingula, likely representing atelectasis or scarring. No pleural effusion. Mild cardiomegaly. No pericardial effusion. Diaphragm: Left hemidiaphragm is mildly elevated. Liver: Liver contour is mildly nodular. Liver enhancement is heterogeneous but no focal lesion is seen. Gallbladder: Contracted gallbladder contains calcified gallstones. Bile ducts: No biliary ductal dilation. Spleen: Mild splenomegaly measuring 13.3 cm craniocaudally. Pancreas: Normal. Adrenal glands: Normal. Kidneys and ureters: No hydronephrosis, stones, or suspicious masses. Bladder: Underdistended but appears thick-walled. Reproductive organs: Unremarkable. Stomach, small bowel, and large bowel: Stomach and bowel loops are normal in caliber. Contents of distal small bowel are fecalized. There is large amount of formed stool throughout the colon. Appendix: Normal. Peritoneum and retroperitoneum: Small volume perihepatic, and trace perisplenic and pelvic ascites.No pneumoperitoneum. No omental or mesenteric lesions. Lymph nodes: No enlarged lymph nodes. Blood vessels: Mild vascular calcifications but no aneurysm. No evidence of venous thrombosis. Extensive paraesophageal, gastrohepatic, and perisplenic varices. Abdominal and pelvic wall: No acute abnormality. Bones: No acute abnormality. IMPRESSION: 1. Cirrhotic liver with stigmata of portal hypertension as evidenced by small volume ascites, extensive abdominal varices, and mild splenomegaly. 2. Fecalized distal small bowel contents could be due to slow transit or bacterial overgrowth. There is large amount of stool retention throughout the colon. No evidence of bowel obstruction or stercoral colitis. 3. Apparent bladder wall thickening could be due to under distention or cystitis. 4. Additional chronic findings as detailed above. WSN: [id number] Ordering Physician: Adriana Harding Dictated By: Russel Skaggs MD Dictated Date/Time: 03/25/24 9:35 pm Reviewed By: Russel Skaggs MD Signed By: Russel Skaggs MD Signed Date/Time: 03/25/24 9:35 pm Transcribed By: DEWAYNE Transcribed Date/Time: 03/25/24 9:27 pm * Exam Date Time Procedure Performing Provider Status 03/25/24 5:02 PM US RUQ HutsonAna black; Auth (V erified) Notes: (US RUQ) Reason For Exam: Abdominal Pain;Other: RESULT: US RUQ US RUQ Hx of Present Illness: Pt c o right upper abdominal pain for the past week, denies noting n v. pt denies dysuria. Pt denies sob, c p, fevers chills.; Reason: Other:; Abdominal Pain; Clinical Question(s): Cholecystitis COMPARISON: None. FINDINGS: Liver: Coarse hepatic echotexture and echogenic parenchyma. No suspicious lesion. Mildly nodular hepatic contour. Main portal vein patent with normal hepatopetal direction of flow. There is trace amount of perihepatic free fluid. Gallbladder: Completely collapsed around gallstones resulting in artifactual thickened appearance of the wall. No pericholecystic fluid. Negative Booth sign. Biliary Tree: No intrahepatic or extrahepatic bile duct dilation is identified. Common duct measures: 0.2 cm. Pancreas: Partially obscured by overlying bowel gas. No abnormality in the visualized portions of the pancreas. Right kidney: 10.8 cm in length. Normal parenchymal echotexture and thickness. No hydronephrosis, stone or mass. IMPRESSION: 1. Cirrhotic liver morphology with trace perihepatic ascites. 2. Cholelithiasis without evidence of acute cholecystitis. WSN: [id number] Ordering Physician: Deandra Silvestre Dictated By: Russel Skaggs MD Dictated Date/Time: 03/25/24 5:22 pm Reviewed By: Russel Skaggs MD Signed By: Russel Skaggs MD Signed Date/Time: 03/25/24 5:22 pm Transcribed By: DEWAYNE Transcribed Date/Time: 03/25/24 5:20 pm Vital Signs Most recent to oldest [Reference Range]: 1 2 3 Height 168 cm (03/25/24 11:12 PM) 168 cm (03/25/24 6:58 PM) 168 cm (03/25/24 2:32 PM) Weight 54.5 kg (03/25/24 11:12 PM) 54.5 kg (03/25/24 6:58 PM) 54.5 kg (03/25/24 2:32 PM) Oxygen Saturation [94-100 %] 94 % (03/25/24 11:12 PM) 97 % (03/25/24 6:58 PM) 94 % (03/25/24 2:32 PM) Pulse Rate [55-90 bpm] 73 bpm (03/25/24 11:12 PM) 67 bpm (03/25/24 6:58 PM) 80 bpm (03/25/24 2:32 PM) Body Mass Index [18.5-24.99 kg/m2] 19.31 kg/m2 (03/25/24 11:12 PM) 19.31 kg/m2 (03/25/24 6:58 PM) 19.31 kg/m2 (03/25/24 2:32 PM) Blood Pressure [90-138/55-84 mm Hg] 113/71mm Hg (03/25/24 11:12 PM) 114/63mm Hg (03/25/24 6:58 PM) 111/67mm Hg (03/25/24 2:32 PM) Respiratory Rate [16-30 br/min] 16 br/min (03/25/24 11:12 PM) 18 br/min (03/25/24 6:58 PM) 18 br/min (03/25/24 2:32 PM) Temperature [96.8-100.4 DegF] 98.1 DegF (03/25/24 11:12 PM) 98.2 DegF (03/25/24 6:58 PM) 98.1 DegF (03/25/24 2:32 PM) Mode of Delivery (Oxygen) Room air (03/25/24 11:12 PM) Room air (03/25/24 6:58 PM) Room air (03/25/24 2:32 PM) Blood pressure sites Arm, left (03/25/24 11:12 PM) Arm, right (03/25/24 6:58 PM) Arm, left (03/25/24 2:32 PM) Temperature Route Oral (03/25/24 11:12 PM) Oral (03/25/24 6:58 PM) Oral (03/25/24 2:32 PM) Dry Weight 54.5 kg (03/25/24 11:12 PM) 54.5 kg (03/25/24 6:58 PM) 54.5 kg (03/25/24 2:32 PM) Weight Obtained Via Patient/family state d (03/25/24 2:32 PM) Dry Weight Obtained Via Patient/family s tated (03/25/24 2:32 PM) Patient Care team information Care Team Personnel Name: Not on Staff, PCP Position: S Physician (General Medicine) Member Role: PCP
[2024-10-13 00:10] LABS: MANUAL DIFF FLAG NO
[2024-10-13 00:12] LABS: Basophils Percent Auto 1.1 % (0-2); Eosinophils Absolute Auto 0.1 X10*3/uL (0.0-0.4); Eosinophils Percent Auto 1.6 % (0-4); Hematocrit 29.5 % (42.0-52.0); Hemoglobin 9.7 g/dl (14.0-18.0); Imm Gran Abs Auto 0.04 X10*3/uL (0.00-0.03); Imm Gran Pct Auto 1.1 % (0.0-0.4); Lymphocytes Absolute Auto 0.8 X10*3/uL (1.2-4.9); Lymphocytes Percent Auto 20.8 % (20-40); Mean Corpuscular HGB Conc 32.9 g/dl (31.0-36.0); Mean Corpuscular Hemoglobin 34.3 pg (27.0-33.0); Mean Corpuscular Volume 104.2 fL (80.0-98.0); Mean Platelet Volume 12.1 fL (9.4-12.4); Monocytes Absolute Auto 0.5 X10*3/uL (0.1-1.2); Monocytes Percent Auto 12.6 % (2-11); Neutrophils Absolute Auto 2.3 x10*3/uL (2.0-8.3); Neutrophils Percent Auto 62.8 % (45-73); Red Blood Count 2.83 X10*6/uL (4.60-5.80); White Blood Count 3.7 X10*3/uL (4.8-10.8)
[2024-10-13 00:15] LABS: VBG Base Excess 1.3 mmol/L; VBG HCO3 25 mmol/L (22-26); VBG pCO2 35 mmHg; VBG pH 7.44 (7.32-7.43); VBG pO2 88 mmHg
[2024-10-13 00:15] LABS: Venous Blood Gas Refer to POC result
[2024-10-13 00:15] LABS: INTERNATIONAL NORM RATIO 1.4 (0.9-1.1); Prothrombin Time 16.1 SEC (10.9-12.4)
[2024-10-13 00:16] LABS: Platelet Count 30 X10*3/uL (160-400)
[2024-10-13 00:21] LABS: Ethanol 405 mg/dL
[2024-10-13 00:25] LABS: Alanine Aminotransferase 26 U/L (0-40); Albumin Level 2.6 g/dL (3.5-5.0); Alkaline Phosphatase 195 U/L (39-117); Anion Gap 12 (12-20); Aspartate Amino Transferase 196 U/L (5-37); Bilirubin Direct 0.8 mg/dL (0.0-0.5); Bilirubin Total 1.4 mg/dL (0.0-1.0); Blood Urea Nitrogen 10 mg/dL (9-16); Calcium 8.5 mg/dL (8.4-10.2); Carbon Dioxide 21 mmol/L (22-29); Chloride 111 mmol/L (96-108); Creatinine Clr Calc Pharmacy 72.9; Estimated Glomerular Filt Rate > 60; Glucose Random 119 mg/dL (60-115); Magnesium 1.5 mg/dL (1.6-2.6); Potassium 3.1 mmol/L (3.3-5.1); Sodium 141 mmol/L (135-145); Total Protein 8.8 g/dL (6.5-8.0)
[2024-10-13 00:30] LABS: B Type Natriuretic Peptide 134 pg/mL (<100)
[2024-10-13 00:30] LABS: Troponin-I High Sensitivity 3.5 ng/L (<3.5-35.0)
[2024-10-13 00:33] LABS: Lactic Acid 2.2 mmol/L (0.5-2.0)
[2024-10-13 00:40] LABS: COVID-19 Test Negative (Negative); IDNOW Serial# 08D9AD1C; IDNOW Serial# 152EDE1D; Influenza A Negative (Negative); Influenza B2 Negative (Negative)
[2024-10-13 00:44] LABS: TSH reflex Free T4 2.69 uIU/mL (0.32-4.0)
[2024-10-13 01:01] VITALS: PULSE 81; RESP 15; TEMP 36.4; O2SAT 95
[2024-10-13 02:06] LABS: Reflex Lactate? Lactic Acid Added
[2024-10-13 02:37] VITALS: BP 101/58; PULSE 91; RESP 15; TEMP 36.4; O2SAT 94
[2024-10-13 03:02] LABS: ~Lactic Acid-LAB USE ONLY 1.5 mmol/L (0.5-2.0)
[2024-10-13] MEDS: Potassium Chloride Packet 20 MEQ PACKET 60 MEQ PO (06:38)
[2024-10-13] MEDS: Magnesium Oxide 400 MG TABLET 800 MG PO (06:39)
--- NOTE | 2024-10-13 07:46 | PC.NURSE ---
pt is currently asleep, respirations even and unlabored,
[2024-10-13 11:00] VITALS: BP 99/57; PULSE 93; RESP 18; TEMP 37.1; O2SAT 93
[2024-10-13 11:29] LABS: Appearance Urine Cloudy; Color Urine Dark Yellow; Glucose Urine UA Negative (Negative); Leukocyte Esterase Urine Trace (Negative); Nitrite Urine Positive (Negative); Specific Gravity - Urine 1.025 (1.005-1.025); UMIC TRIGGER UACC YES; Urine Blood Negative (Negative); Urine Ketones Trace mg/dL (Negative); Urine Protein 30 (1+) mg/dL (Neg-Trace)
[2024-10-13 11:39] LABS: Amphetamine Screen Urine Not Detected (Not Detect); Bacteria Urine None Seen (None Seen); Barbiturates, Urine Not Detected (Not Detect); Benzodiazepines Screen Urine Not Detected (Not Detect); Buprenorphine Scr Not Detected (Not Detect); Cannabinoid Screen Urine Not Detected (Not Detect); Cocaine Screen Urine Not Detected (Not Detect); Fentanyl, urine Not Detected (Not Detect); Hyaline Casts Urine 0-2 /LPF (0-2); Methadone Screen, Urine Not Detected (Not Detect); Opiate Screen Urine Not Detected (Not Detect); Other Crystals Urine Present; Oxycodone Screen Urine Not Detected (Not Detect); Phencyclidine Screen Urine Not Detected (Not Detect); RBC Urine 0-2 /HPF (0-2); Squamous Epithelial Cell Urine 0-2 /HPF (0-2); UACC Culture Trigger YES; WBC Urine 0-5 /HPF (0-5)
[2024-10-13 13:16] VITALS: BP 99/57; PULSE 93; RESP 18; TEMP 37.1; O2SAT 93
== END 2024-10-13 13:16 | disposition home or self-care (01) ==
PROVIDERS: Emergency Provider Emergency Medicine
DX: F10.129 Alcohol abuse with intoxication, unspecified (principal); Y90.9 Presence of alcohol in blood, level not specified; R06.02 Shortness of breath; Z87.891 Personal history of nicotine dependence; Z79.899 Other long term (current) drug therapy; Z11.52 Encounter for screening for COVID-19; Z51.81 Encounter for therapeutic drug level monitoring
CPT/HCPCS: 36415; 71045; 80048; 80076; 80307; 81001; 82803; 83605; 83735; 83880; 84443; 84484; 85025; 85610; 87040; 87086; 87502; 87635; 93005; 99284

== ENCOUNTER → 2024-10-12 23:24 | Outpatient (BNV) | payer MEDICAID, SELFPAY | PROVIDERS: Emergency Provider Emergency Medicine; Visit Provider Internal Medicine | DX: R06.02 Shortness of breath (principal) | CPT/HCPCS: 93010 ==

== ENCOUNTER 2024-10-17 17:22 | Emergency (ER) | payer MEDICAID, SELFPAY ==
[2024-10-17 17:30] VITALS: PULSE 92; O2SAT 95
[2024-10-17 18:07] VITALS: BP 115/63; PULSE 82; RESP 18; TEMP 36.5; O2SAT 95; BMI 21.3
[2024-10-17 18:10] VITALS: BP 115/63; PULSE 82; RESP 18; TEMP 36.5; O2SAT 95
--- NOTE | 2024-10-17 18:14 | PC.NURSE ---
Pt comes to ED via EMS from after staff at a liquor store called d/t Pts belligerent behavior. Pt is arrives to ED heavily soiled in urine. Pt is alert and awake but oriented to place only (states year is 2090 and cannot provide day/date.) VSS, afebrile On arrival, Pt was shouting out generally but has now settled down and is calm and cooperative. Pts clothing removed and changed into hospital attire. Pt pulls out a half consumed pint of whiskey and hands it to this RN--security called and took custody of ETOH. Pt is a 1 assist to the bathroom to change clothing. Awaiting orders.
--- NOTE | 2024-10-17 18:26 | ED_ITS ---
HPI - Alcohol General Chief Complaint: ETOH/Substance Use Stated Complaint: etoh Time Seen by Provider: 10/17/24 17:35 Source: patient and EMS Mode of arrival: EMS Limitations: no limitations History of Present Illness HPI narrative: Patient is a 54-year-old male who presents to emergency department via EMS for evaluation, he was found outside of a local liquor store where staff felt as though he was acting belligerent and therefore called EMS for assistance. For EMS he was calm and cooperative. He is well known to this emergency department, has a significant history of alcohol use disorder/dependence, alcoholic cirrhosis with history of hepatic encephalopathy, thrombocytopenia, esophageal varices and upper GI bleed in the past, history of a chronic distal tibial fracture for which he has not maintained compliance outpatient with Orthopedic. He endorses a chronic pain to the left ankle which is ongoing. He states that he drank a pt of alcohol today. Related Data Previous Rx's ?Medication ?Instructions ?Recorded acetaminophen 325 mg capsule 325 mg PO Q4H PRN pain #30 caps 03/13/24 (Tylenol) amoxicillin 875 mg-potassium 1 tab PO BID #8 tabs 05/05/24 clavulanate 125 mg tablet folic acid 1 mg tablet 1 mg PO DAILY #90 tabs 05/05/24 multivitamin (Daily-Barry tablet) 1 tab PO DAILY #90 tabs 05/05/24 thiamine HCl (vitamin B1) 100 mg 100 mg PO DAILY #90 tabs 05/05/24 tablet azithromycin 250 mg tablet See Rx Instructions PO .COMPLEX #6 05/11/24 tabs doxycycline hyclate 100 mg capsule 100 mg PO BID 7 days #14 caps 05/11/24 Allergies Allergy/AdvReac Type Severity Reaction Status Date / Time No Known Allergies Allergy Verified 10/17/24 18:09 [No Known Allergies*] Review of Systems 2 Review of Systems: Yes all other systems are reviewed and are negative PMFSH Past Medical History Attestation statement: The following information was validated with the patient. Source: old records reviewed Medical History Thrombocytopenia Aspiration pneumonia Malnutrition CHF (congestive heart failure) Anemia Hypomagnesemia Cirrhosis Thrombocytopenia Alcoholic liver disease Acute on chronic anemia CHF (congestive heart failure) Anemia Pneumonia Alcohol abuse Alcohol withdrawal syndrome Surgical History No history of previous surgery Social History Social History Household Members: None Household Members Other:: pt homeless Housing: Homeless Housing Other:: homeless Do you presently have visiting nurse or other home services: No Unable to assess alcohol history related to: Refusing to respond Alcohol intake: current Alcohol intake frequency: 3 or more drinks per day Alcohol type: beer and hard liquor Comment: 1 assist to bathroom Patient Tobacco Use Status: Former Tobacco user Tobacco use type: Cigarette Smoked in Last 30 Days: No Second Hand Smoke Exposure: No Use of substances other than those prescribed or required for medical reasons: No Advance Directives: Yes Advance Directives on File: Yes Advance Directives Date on File: 07/13/23 Do you have a plan to hurt others: No Plan service: No Physical Exam ED Vital Signs: Vital Signs - 24 hr 10/17/24 18:07 10/17/24 18:10 10/17/24 20:00 Temperature 97.7 F 97.7 F 97.8 F Pulse Rate 82 82 85 Respiratory Rate 18 18 16 Blood Pressure 115/63 115/63 103/61 Pulse Oximetry 95 95 92 Oxygen Delivery Method Room Air Room Air Room Air Oxygen Flow Rate 10/18/24 00:00 Temperature 98.1 F Pulse Rate 81 Respiratory Rate 14 Blood Pressure 100/57 L Pulse Oximetry 98 Oxygen Delivery Method Nasal Cannula Oxygen Flow Rate 2 BMI result Body Mass Index 21.3 Appearance: Alert.?Oriented to person, and place, disoriented to time. No acute distress.?Normal affect. Eyes: Pupils equal, round and reactive to light.? ENT: Pharynx normal.?? Neck: Normal inspection.? Neck supple.?? CVS: Heart sounds normal. Normal heart rate and rhythm.? Pulses normal.?? Respiratory: No respiratory distress.? Lung sounds clear to auscultation bilaterally?? Abdomen: Soft and non-tender. Normoactive bowel sounds. ?? Skin: Skin warm and dry.? Normal skin color.? Extremities: No lower extremity edema.? No calf ttp? Neuro: Moves all extremities spontaneously. Sensation intact bilaterally. CN II- XII intact. No focal neuro deficits. Ambulates with slightly unsteady gait. Course Reevaluation(s) Reevaluation #1: Serum labs revealed hypocalcemia and hypomagnesemia which I suspect is secondary to his alcohol use disorder, replaced with calcium carbonate 1500 mg, vitamin-D 25 mcg, and magnesium 2 g. Patient was signed out to attending Dr. Chinchilla pending repeat electrolytes and re-evaluation for clinical sobriety. Once sober may inquire as to whether he is interested in assistance with detox from alcohol. Time: 02:00 Medical Decision Making Medical Decision Making MDM Narrative: Patient is a 54-year-old male with past medical history of alcohol use disorder/dependence, alcoholic cirrhosis with history of hepatic encephalopathy, thrombocytopenia, esophageal varices and upper GI bleed in the past, history of a chronic distal tibial fracture for which he has not maintained compliance outpatient with Orthopedic who presents today after being found to be acting belligerent outside of a local liquor store. He arrives via EMS, he is well known to this emergency department as well as this business writer, at this time he appears to be acting at his baseline. He does endorse ongoing pain to his left ankle however he has been ambulatory with a slightly unsteady gait since arrival to the emergency department. There does not appear to be any obvious deformity to the extremity, there is 2+ DP/PT pulse neurovascularly intact distally. Of note he was recently seen in the emergency department 10/12/2024 at the time he was noted to be mildly hypokalemic at 3.1, chronically elevated LFTs. However given his recent electrolyte derangement will obtain repeat serum labs for evaluation today. He will require placement in physician observation until clinically sober for further evaluation. At this time he declines interest in detox from alcohol, however will reassess once sober Differential Diagnosis Differential Diagnoses: The differential diagnosis associated with the presentation includes (See narrative above and below for further detail) Admission/Observation Consideration of admission/observation: Escalation of care including admission/observation considered Patient is being observed in the Emergency Department for admitted alcohol use and acute intoxication. Observation time was started at 21:00 on 10/17/2024.?The patient is currently stable and non-toxic appearing. Observation is being initiated in the Emergency Department to allow time to help differentiate if the patient?s encephalopathy and delirium is due to alcohol intoxication and polysubstance abuse versus stroke, transient ischemic attack, major depression, overdose of medication, arrhythmia, seizure, or closed head injury/concussion. The patient will receive frequent assessments from the provider as well as the nursing staff. The patient will be monitored for the need for diagnostic imaging such as a CT head, MRI brain, chest x-ray, and serial EKGs to evaluate for prolonged QTc intervals. The patient will also be monitored for the need of PRN agitation medications such as Haldol, Ativan, and Benadryl. Lab Data MDM Lab Attestation statement: I reviewed the patient's lab results. (See course narrative) 10/17/24 18:52 10/18/24 01:30 Labs: Lab Results 10/17/24 10/18/24 Range/Units 18:52 01:30 WBC 4.3 L (4.8-10.8) X10*3/uL RBC 2.81 L (4.60-5.80) X10*6/uL Hgb 9.7 L (14.0-18.0) g/dl Hct 28.8 L (42.0-52.0) % MCV 102.5 H (80.0-98.0) fL MCH 34.5 H (27.0-33.0) pg MCHC 33.7 (31.0-36.0) g/dl RDW 16.7 H (11.0-16.0) % Plt Count 38 L D (160-400) X10*3/uL MPV 10.9 (9.4-12.4) fL Immature Gran % (Auto) 0.9 H (0.0-0.4) % Neut % (Auto) 66.2 (45-73) % Lymph % (Auto) 18.1 L (20-40) % [place] % (Auto) 12.5 H (2-11) % Eos % (Auto) 0.7 (0-4) % Baso % (Auto) 1.6 (0-2) % Lymph # (Auto) 0.8 L (1.2-4.9) X10*3/uL [place] # (Auto) 0.5 (0.1-1.2) X10*3/uL Eos # (Auto) 0.0 (0.0-0.4) X10*3/uL Baso # (Auto) 0.1 (0.0-0.2) X10*3/uL Abs Immat Gran (auto) 0.04 H (0.00-0.03) X10*3/uL Absolute Neuts (auto) 2.9 (2.0-8.3) x10*3/uL Absolute Nucleated RBC 0.000 (0.0-0.012) X10*3/uL Nucleated RBC % (auto) 0.0 (0.0-0.2) /100WBC Smear Tech's Comments VERIFIED Sodium 137 139 (135-145) mmol/L Potassium 3.5 3.3 (3.3-5.1) mmol/L Chloride 105 107 (96-108) mmol/L Carbon Dioxide 22 22 (22-29) mmol/L Anion Gap 14 13 (12-20) BUN 7 L 6 L (9-16) mg/dL Creatinine 0.82 0.72 (0.5-1.4) mg/dL Estim Creat Clear Calc 78.3 89.2 Estimated GFR > 60 > 60 Random Glucose 97 110 (60-115) mg/dL Calcium 7.8 L D 7.9 L (8.4-10.2) mg/dL Magnesium 1.4 L* 2.0 (1.6-2.6) mg/dL Total Bilirubin 1.9 H (0.0-1.0) mg/dL Direct Bilirubin 1.2 H (0.0-0.5) mg/dL AST 165 H (5-37) U/L ALT 24 (0-40) U/L Alkaline Phosphatase 118 H (39-117) U/L Total Protein 9.1 H (6.5-8.0) g/dL Albumin 2.7 L (3.5-5.0) g/dL Ethyl Alcohol 467 H* mg/dL Independent Interpretation I performed an independent interpretation of an: EKG Independent Historian Clinical information obtained from an independent historian. History obtained from or confirmed by: EMS External Record Review External record reviewed: Outpatient record Chronic Conditions Patient?s care impacted by: Other (See narrative above) Medications Administered Discontinued Medications Generic Name Dose Route Start Last Admin Trade Name Freq PRN Reason Stop Dose Admin Calcium Carbonate 1,500 mg 10/17/24 21:01 10/17/24 21:31 Calcium Carbonate 750 Mg Tab.Chew PO 10/17/24 21:02 1,500 mg ONCE ONE Administration Sodium Chloride 1,000 mls @ 999 mls/hr 10/17/24 22:00 10/18/24 00:03 Ns IV 10/17/24 23:00 Infused .Q1H1M JOSE MANUEL Infusion Magnesium Sulfate 2 gm in 50 mls @ 25 mls/hr 10/17/24 21:49 10/18/24 00:03 Magnesium Sulfate/H2o IV 10/17/24 23:48 Infused ONCE ONE Infusion Vitamin D 25 mcg 10/17/24 21:01 10/17/24 21:31 Cholecalciferol (Vitamin D3) 25 Mcg Tablet PO 10/17/24 21:02 25 mcg ONCE ONE Administration Discharge Plan Discharge Clinical Impression: Alcohol use disorder, Hypomagnesemia, Hypocalcemia Patient Disposition: Still a Patient Prescriptions: No Action acetaminophen [Tylenol] 325 mg capsule 325 mg PO Q4H PRN (Reason: pain) Qty: 30 0RF multivitamin [Daily-Barry] Tablet 1 tab PO DAILY Qty: 90 0RF folic acid 1 mg Tablet 1 mg PO DAILY Qty: 90 0RF thiamine HCl (vitamin B1) 100 mg tablet 100 mg PO DAILY Qty: 90 0RF amoxicillin-pot clavulanate 875-125 mg tablet 1 tab PO BID Qty: 8 0RF azithromycin 250 mg tablet See Rx Instructions .ROUTE .COMPLEX Qty: 6 0RF Rx Instructions: For 250 mg dose pack: take 500 mg today (day 1), then 250 mg for 4 days (days 2-5) doxycycline hyclate 100 mg capsule 100 mg PO BID 7 Days Qty: 14 0RF Print Language: Mauritian
[2024-10-17 19:14] LABS: Alanine Aminotransferase 24 U/L (0-40); Albumin Level 2.7 g/dL (3.5-5.0); Alkaline Phosphatase 118 U/L (39-117); Anion Gap 14 (12-20); Aspartate Amino Transferase 165 U/L (5-37); Bilirubin Direct 1.2 mg/dL (0.0-0.5); Bilirubin Total 1.9 mg/dL (0.0-1.0); Blood Urea Nitrogen 7 mg/dL (9-16); Calcium 7.8 mg/dL (8.4-10.2); Carbon Dioxide 22 mmol/L (22-29); Chloride 105 mmol/L (96-108); Creatinine Clr Calc Pharmacy 78.3; Estimated Glomerular Filt Rate > 60; Ethanol 467 mg/dL; Glucose Random 97 mg/dL (60-115); Potassium 3.5 mmol/L (3.3-5.1); Sodium 137 mmol/L (135-145); Total Protein 9.1 g/dL (6.5-8.0)
[2024-10-17 19:18] LABS: Eosinophils Percent Auto 0.7 % (0-4); Hemoglobin 9.7 g/dl (14.0-18.0); PLT CLUMP 1; Red Cell Distribution Width 16.7 % (11.0-16.0); SCAN SMEAR FLAG 1
[2024-10-17 19:20] LABS: Basophils Absolute Auto 0.1 X10*3/uL (0.0-0.2); Basophils Percent Auto 1.6 % (0-2); Hematocrit 28.8 % (42.0-52.0); Imm Gran Abs Auto 0.04 X10*3/uL (0.00-0.03); Imm Gran Pct Auto 0.9 % (0.0-0.4); Lymphocytes Absolute Auto 0.8 X10*3/uL (1.2-4.9); Lymphocytes Percent Auto 18.1 % (20-40); MANUAL DIFF FLAG SCAN; Mean Corpuscular HGB Conc 33.7 g/dl (31.0-36.0); Mean Corpuscular Hemoglobin 34.5 pg (27.0-33.0); Mean Corpuscular Volume 102.5 fL (80.0-98.0); Mean Platelet Volume 10.9 fL (9.4-12.4); Monocytes Absolute Auto 0.5 X10*3/uL (0.1-1.2); Monocytes Percent Auto 12.5 % (2-11); Neutrophils Absolute Auto 2.9 x10*3/uL (2.0-8.3); Neutrophils Percent Auto 66.2 % (45-73); Red Blood Count 2.81 X10*6/uL (4.60-5.80)
--- NOTE | 2024-10-17 19:53 | MHC.EDTECH ---
This tech took over care of pt at 1900,rounded and introduced self to pt,report was given by raad Isidro,pt,s belongings are being washed,this creative services writer placed clothing in dryer, and is washing pts jacket at this time,pt is resting quietly,vitals taken.
[2024-10-17 20:00] VITALS: BP 103/61; PULSE 85; RESP 16; TEMP 36.6; O2SAT 92
[2024-10-17 20:19] LABS: Platelet Count 38 X10*3/uL (160-400); White Blood Count 4.3 X10*3/uL (4.8-10.8)
[2024-10-17 20:30] LABS: SLIDE REVIEW VERIFIED
--- NOTE | 2024-10-17 20:59 | ECG_ITS ---
Test Reason : hypocalcemia Blood Pressure : / mmHG Vent. Rate : 087 BPM Atrial Rate : 087 BPM P-R Int : 112 ms QRS Dur : 080 ms QT Int : 424 ms P-R-T Axes : 055 034 038 degrees QTc Int : 510 ms Normal sinus rhythm Normal ECG When compared with ECG of 13-OCT-2024 00:55, No significant change was found Referred By: Vanessa Lopez Electronically Signed By:Brayan Negron
[2024-10-17] MEDS: Cholecalciferol (Vitamin D3) 25 MCG TABLET PO (21:31)
[2024-10-17] MEDS: Calcium Carbonate 750 MG TAB.CHEW 1500 MG PO (21:31)
[2024-10-17 21:49] LABS: Magnesium 1.4 mg/dL (1.6-2.6)
[2024-10-17] MEDS: 0.9 % Sodium Chloride 1,000 ML 999 ML IV (22:02)
[2024-10-17] MEDS: Magnesium Sulfate/H2O 2 GM/50 ML PIGGYBACK IV (22:02)
--- NOTE | 2024-10-17 22:29 | MHC.EDTECH ---
Patient was placed on the body man and moved to ED 19
--- NOTE | 2024-10-17 22:39 | PC.NURSE ---
iv placed pt moved into ed 19 from [facility] bed assignment pt placed on monitor and storage bin tender pt medicated according to jorge pt calm and cooperative
[2024-10-18] VITALS: BP 100/57; PULSE 81; RESP 14; TEMP 36.7; O2SAT 98
[2024-10-18 01:48] LABS: Anion Gap 13 (12-20); Blood Urea Nitrogen 6 mg/dL (9-16); Calcium 7.9 mg/dL (8.4-10.2); Carbon Dioxide 22 mmol/L (22-29); Chloride 107 mmol/L (96-108); Creatinine Clr Calc Pharmacy 89.2; Estimated Glomerular Filt Rate > 60; Glucose Random 110 mg/dL (60-115); Potassium 3.3 mmol/L (3.3-5.1); Sodium 139 mmol/L (135-145)
[2024-10-18 04:13] VITALS: BP 103/59; PULSE 89; RESP 14; O2SAT 95
[2024-10-18 06:11] VITALS: BP 111/69; PULSE 94; RESP 11; TEMP 36.9; O2SAT 94
[2024-10-18 10:48] VITALS: BP 111/69; PULSE 94; RESP 16; TEMP 36.9; O2SAT 94
== END 2024-10-18 10:49 | disposition home or self-care (01) ==
PROVIDERS: Nurse Practitioner Family; Emergency Provider Internal Medicine
DX: E83.42 Hypomagnesemia (principal); E83.51 Hypocalcemia; F10.129 Alcohol abuse with intoxication, unspecified; G89.29 Other chronic pain; I50.9 Heart failure, unspecified; Y90.8 Blood alcohol level of 240 mg/100 ml or more; Z79.899 Other long term (current) drug therapy; Z87.891 Personal history of nicotine dependence
CPT/HCPCS: 36415; 80048; 80076; 80307; 83735; 85025; 93005; 96361; 96374; 99285; J3475

== ENCOUNTER → 2024-10-17 20:59 | Outpatient (BNV) | payer MEDICAID, SELFPAY | PROVIDERS: Emergency Provider Internal Medicine; Visit Provider Internal Medicine Cardiovascular Disease | DX: E83.51 Hypocalcemia (principal) | CPT/HCPCS: 93010 ==

== ENCOUNTER 2024-10-20 20:36 | Inpatient (IN) | payer MEDICAID, SELFPAY ==
--- NOTE | ~2024-10-20 | XR_ITS ---
EXAMINATION: XR CHEST 1 VIEW CLINICAL INFORMATION: Hypoxia , pneumonia re-eval COMPARISON: October 31, 2024 TECHNIQUE: Single portable frontal view. Tubes and lines: None Lungs and pleura: Moderate to severe diffuse increased interstitial lung marking and peribronchial cuffing nonspecific might interstitial pneumonitis, versus interstitial edema , no significant pleural effusion. No dense focal consolidation pneumonia. Heart and mediastinum: The mediastinum is within normal limits.. Bones/soft tissue: Skeletal structures included are normal for patient's age. XR/XR chest 1V IMPRESSION: 1. Moderate to severe diffuse increased interstitial opacification nonspecific might be interstitial pneumonitis, versus interstitial edema not significantly changed from prior exam.. 2. No dense focal consolidation pneumonia. Electronically signed by: Odell Munoz MD 11/06/2024 01:33 PM BILL PAN
--- NOTE | ~2024-10-20 | XR_ITS ---
EXAMINATION: XR CHEST CLINICAL INFORMATION: pneumonia COMPARISON: 10/13/2024, 10/21/2024. TECHNIQUE: Frontal view of the chest was obtained. FINDINGS: There has been no significant interval progression of confluent peribronchial airspace disease seen throughout the entire right lung and left mid and lower lung. There is relative sparing of the left apex. More consolidative appearing disease again noted left greater than right bases, with retrocardiac air bronchograms, unchanged. Mild prominence of the cardiac silhouette, possibly projectional from AP technique. Stable prominence of the hilar vasculature. XR/XR chest 1V IMPRESSION: 1. No significant interval change in bilateral multifocal pneumonitis as described above. Examination is stable. Major differential is asymmetric pulmonary edema pattern. 2. No pneumothorax. Electronically signed by: David Wang MD 10/25/2024 03:30 PM BILL
--- NOTE | ~2024-10-20 | XR_ITS ---
EXAMINATION: XR CHEST CLINICAL INFORMATION: Repeat; shortness of breath. COMPARISON: Most recent chest radiograph dated 10/25/2024. TECHNIQUE: Frontal view of the chest was obtained. FINDINGS: Diffuse interstitial prominence. Patchy right mid lung and left basilar airspace opacities, slightly increased. No pleural effusion or pneumothorax. Stable cardiomediastinal silhouette. XR/XR chest 1V IMPRESSION: Diffuse interstitial prominence with patchy right mid lung and left basilar airspace opacities, slightly increased when compared to the prior examination. Electronically signed by: Randal Maguire MD 11/01/2024 10:53 PM BILL
--- NOTE | ~2024-10-20 | CT_ITS ---
EXAMINATION: CT CHEST WITHOUT CONTRAST CLINICAL INFORMATION: Hypoxia. COMPARISON: Chest radiograph dated 11/06/2024. CT chest dated 10/21/2024. TECHNIQUE: Multidetector volumetric CT imaging of the chest was done. Axial MIP volume rendering provided. Sagittal and coronal reformatted images were obtained. This CT examination was performed using dose optimization techniques as appropriate, variously including the following: *Automated exposure control *Adjustment of mA and/or kV according to patient size (this includes techniques or standardized protocols for targeted exams where dose is matched to indication/reason for exam; i.e. extremities or head) *Use of iterative reconstruction technique DLP: 141 mGy-cm FINDINGS: BRANCH ASSOCIATE: Unremarkable. LUNGS: Near-complete resolution of the left lower lobe confluent airspace consolidation. There are patchy diffuse bilateral ground-glass opacities, new/increased when compared to the prior examination. Decreased central right upper lobe airspace opacities. No large pulmonary mass. The central airways are patent. MEDIASTINUM: No cardiomegaly. No pericardial effusion. No thoracic aortic dilatation. No significant lymphadenopathy, however, evaluation limited without IV contrast. CORONARY ARTERY CALCIFICATION: Present. PLEURA: There is no pleural effusion. No pleural mass or thickening. AXILLA: No lymphadenopathy. UPPER ABDOMEN: Partially visualized upper abdominal ascites, new when compared to the prior CT. Small, sliding hiatal hernia. OSSEOUS STRUCTURES: No acute osseous abnormality. Chronic compression deformity at T8, unchanged. CT/CT chest wo IV con IMPRESSION: 1. Near-complete resolution of the left lower lobe confluent airspace consolidation. 2. Diffuse bilateral ground-glass opacities, new/increased when compared to the prior examination. Findings are concerning for an infectious or inflammatory process. 3.Partially visualized upper abdominal ascites, new when compared to the prior CT. Fleischner guidelines were followed. Electronically signed by: Randal Maguire MD 11/08/2024 03:45 PM EST
--- NOTE | ~2024-10-20 | US_ITS ---
EXAMINATION: US ABDOMEN LIMITED CLINICAL INFORMATION: Ascites. COMPARISON: None available. TECHNIQUE: Real-time imaging of the right upper quadrant abdominal viscera. FINDINGS: Imaging today abdomen reveals a very small amount of fluid. Paracentesis was canceled. The liver is lobulated and heterogenous suggestive of cirrhosis. US/US abdomen limited IMPRESSION: Small very small amount of free fluid in the abdomen. Paracentesis was canceled. Liver is cirrhotic. Electronically signed by: Chaka Cotto MD 11/12/2024 10:47 AM EST
--- NOTE | ~2024-10-20 | US_ITS ---
EXAMINATION: US ABDOMEN LIMITED CLINICAL INFORMATION: Assess liver for HCC. COMPARISON: . Limited abdominal ultrasound 07/21/2023 and 06/29/2023. TECHNIQUE: Real-time imaging of the right upper quadrant abdominal viscera using grayscale and color Doppler technique. FINDINGS: Submitted for interpretation on October 29, 2024. PANCREAS: No peripancreatic fluid collections. LIVER: Liver is enlarged. Nodular surface. Increased echotexture. No gross solid or cystic lesion. Main portal vein is patent with hepatofugal flow direction. No intrahepatic biliary ductal dilatation. GALLBLADDER: Gallbladder is contracted. Thickened wall measuring 4 mm. Multiple intraluminal hyperechoic abnormality is with posterior shadowing. COMMON BILE DUCT: 2 mm. RIGHT KIDNEY: Measures 12 cm. Normal echotexture. Normal renal cortical thickness. No hydronephrosis. Normal flow on color Doppler interrogation in the renal hilum. FREE FLUID: Small to moderate amount US/US abdomen limited IMPRESSION: Consider cirrhosis with the hepatofugal flow direction of the main portal vein and small to moderate amount of ascites, suggesting portal hypertension. Cholelithiasis. Electronically signed by: Eric Steele MD 10/29/2024 08:29 AM EST
--- NOTE | ~2024-10-20 | XR_ITS ---
EXAMINATION: XR CHEST CLINICAL INFORMATION: SOB COMPARISON: 10/12/2024 TECHNIQUE: Single AP view of the chest was obtained. FINDINGS: The cardiomediastinal silhouette is stable. There is no gross pneumothorax. Lung volumes are low. Increased diffuse interstitial opacities and increased bibasilar patchy and streaky opacities. Possible trace bilateral pleural effusions. XR/XR chest 1V IMPRESSION: Increased diffuse interstitial opacities and increased bibasilar patchy and streaky opacities. Possible trace bilateral pleural effusions. This study was presented today October 16, 2024 for interpretation. Stat results provided at this time as requested by referring provider. Electronically signed by: Elvria Chaudhary MD 10/21/2024 08:11 AM BILL
--- NOTE | ~2024-10-20 | XR_ITS ---
EXAMINATION: XR CHEST CLINICAL INFORMATION: pneumonia COMPARISON: Prior chest radiograph 10/21/2024 TECHNIQUE: Frontal view of the chest was obtained. FINDINGS: Patchy airspace disease appears slightly worse. This may be due to a poor inspiratory effort. Heart size borderline with normal caliber pulmonary vessels. Cardiac monitoring leads present. XR/XR chest 1V IMPRESSION: Patchy airspace disease in either unchanged or slightly worse. Findings likely reflect pneumonia either stable or slightly progressive. Recommend continued follow-up is a PA and lateral. Electronically signed by: Chung Rogers MD 10/23/2024 04:40 PM BILL
--- NOTE | ~2024-10-20 | CT_ITS ---
EXAMINATION: CT CHEST WITHOUT CONTRAST CLINICAL INFORMATION: Pneumonia. COMPARISON: Most recent chest radiograph done earlier the same day. CT chest dated 05/02/2024. TECHNIQUE: Multidetector volumetric CT imaging of the chest was done. Axial MIP volume rendering provided. Sagittal and coronal reformatted images were obtained. This CT examination was performed using dose optimization techniques as appropriate, variously including the following: *Automated exposure control *Adjustment of mA and/or kV according to patient size (this includes techniques or standardized protocols for targeted exams where dose is matched to indication/reason for exam; i.e. extremities or head) *Use of iterative reconstruction technique DLP: 242 mGy-cm FINDINGS: DECISION SCIENCE ANALYST: Partially visualized bilateral opacities. LUNGS: Confluent left lower lobe airspace consolidations with air progress. Additional scattered partially ground-glass right and left upper lobe airspace opacities. Linear areas of atelectasis versus scarring within the right lower lobe. No large pulmonary mass. The central airways are patent. MEDIASTINUM: No cardiomegaly. No pericardial effusion. No thoracic aortic dilatation. No significant mediastinal or hilar lymphadenopathy; however, evaluation limited without contrast. CORONARY ARTERY CALCIFICATION: Present. PLEURA: There is no pleural effusion. No pleural mass or thickening. AXILLA: No lymphadenopathy. UPPER ABDOMEN: Hepatomegaly with diffuse hypoattenuation of the parenchyma consistent with steatosis. Sliding hiatal hernia. Small amount of upper abdominal ascites with partially visualized mesenteric stranding. OSSEOUS STRUCTURES: No acute osseous abnormality. Chronic compression deformity of T8. No acute osseous abnormality. CT/CT chest wo IV con IMPRESSION: 1. Confluent left lower lobe airspace consolidations with air bronchograms. Additional scattered partially ground-glass airspace opacities within the right and left upper lobes. Findings are consistent with multifocal pneumonia and are new when compared to the prior chest CT. 2. No significant lymphadenopathy. 3. Hepatomegaly with hepatic steatosis. Small amount of upper abdominal ascites with partially visualized mesenteric stranding. Fleischner guidelines were followed. Electronically signed by: Randal Maguire MD 10/21/2024 11:15 AM [facility] [place]
--- NOTE | ~2024-10-20 | US_ITS ---
Ultrasound paracentesis History: Ascites. Risks and benefits and possible complications were discussed with the patient and consent form was signed. A safe pocket of ascitic fluid was identified using ultrasound guidance, and the overlying skin was marked. The abdomen prepped and draped in sterile fashion. 1% lidocaine was used as a local anesthetic. Using ultrasound guidance, a 5 fr catheter was placed into the ascitic pocket. 2.7 liters of yellow fluid was removed passively. The catheter was then removed. A few admitting representative images from before and after the examination were obtained. The procedure was performed by Frederick Gaston PA-C and supervised by Dr. Junior. US/US paracentesis abd w/image Impression: Ultrasound-guided paracentesis as described above. No immediate complications Electronically signed by: Solo Junior MD 10/31/2024 02:51 PM BILL PAN
[2024-10-20 20:48] VITALS: BP 135/49; BP 91/57; PULSE 85; RESP 20; TEMP 36.2; O2SAT 93; O2SAT 95; BMI 21.1
--- NOTE | 2024-10-20 20:51 | PC.NURSE ---
pt biba the laundry mat, reports etoh use all day long. pt reports he has had one bottle of vodka all day long. pt reports left sided rib pain but otherwise offers no complaints. pt answering questions appropriately at this time. pt changed into hospital gown, security at bedside to search pt, bottle of vodka given to security. vss.
--- NOTE | 2024-10-20 22:24 | ED_ITS ---
HPI - Alcohol General Chief Complaint: ETOH/Substance Use Stated Complaint: etoh Time Seen by Provider: 10/20/24 21:13 Source: patient Mode of arrival: EMS Limitations: no limitations History of Present Illness ED Provider: HPI narrative: Patient alcoholic been here very frequently last visit was 10/17 comes here intoxicated no other complaints no vomiting sleeping in relax after arrival no recent fall Related Data Previous Rx's ?Medication ?Instructions ?Recorded acetaminophen 325 mg capsule 325 mg PO Q4H PRN pain #30 caps 03/13/24 (Tylenol) amoxicillin 875 mg-potassium 1 tab PO BID #8 tabs 05/05/24 clavulanate 125 mg tablet folic acid 1 mg tablet 1 mg PO DAILY #90 tabs 05/05/24 multivitamin (Daily-Barry tablet) 1 tab PO DAILY #90 tabs 05/05/24 thiamine HCl (vitamin B1) 100 mg 100 mg PO DAILY #90 tabs 05/05/24 tablet azithromycin 250 mg tablet See Rx Instructions PO .COMPLEX #6 05/11/24 tabs doxycycline hyclate 100 mg capsule 100 mg PO BID 7 days #14 caps 05/11/24 magnesium oxide 400 mg PO DAILY #30 caps 10/21/24 thiamine HCl (vitamin B1) 100 mg 100 mg PO DAILY #30 tabs 10/21/24 tablet Allergies Allergy/AdvReac Type Severity Reaction Status Date / Time No Known Allergies Allergy Verified 10/20/24 20:50 [No Known Allergies*] PMFSH Past Medical History Medical History Thrombocytopenia Aspiration pneumonia Malnutrition CHF (congestive heart failure) Anemia Hypomagnesemia Cirrhosis Thrombocytopenia Alcoholic liver disease Acute on chronic anemia CHF (congestive heart failure) Anemia Pneumonia Alcohol abuse Alcohol withdrawal syndrome Surgical History No history of previous surgery Social History Social History Household Members: None Household Members Other:: pt homeless Housing: Homeless Housing Other:: homeless Do you presently have visiting nurse or other home services: No Unable to assess alcohol history related to: Refusing to respond Alcohol intake: current Alcohol intake frequency: 3 or more drinks per day Alcohol type: beer and hard liquor Comment: 1 assist to bathroom Patient Tobacco Use Status: Former Tobacco user Tobacco use type: Cigarette Smoked in Last 30 Days: No Second Hand Smoke Exposure: No Use of substances other than those prescribed or required for medical reasons: No Advance Directives: Yes Advance Directives on File: Yes Advance Directives Date on File: 07/13/23 Do you have a plan to hurt others: No Plan service: No Physical Exam ED Vital Signs: Vital Signs - 24 hr 10/20/24 20:48 10/21/24 03:49 10/21/24 03:51 Temperature 97.1 F 98.9 F Pulse Rate 85 88 Respiratory Rate 20 16 Blood Pressure 91/57 L 86/45 L Pulse Oximetry 93 80 L 97 Oxygen Delivery Method Room Air Room Air Nasal Cannula Oxygen Flow Rate 2 10/21/24 05:00 10/21/24 05:13 10/21/24 05:40 Temperature 98.8 F Pulse Rate 100 91 Respiratory Rate 16 16 Blood Pressure 82/45 L 102/57 L Pulse Oximetry 82 L 90 L 95 Oxygen Delivery Method Room Air Nasal Cannula Nasal Cannula Oxygen Flow Rate 4 4 10/21/24 07:12 10/21/24 07:12 Temperature 97.9 F Pulse Rate 88 Respiratory Rate 18 Blood Pressure 93/54 L Pulse Oximetry 85 L 90 L Oxygen Delivery Method Room Air Nasal Cannula Oxygen Flow Rate 3 BMI result Body Mass Index 21.1 Appearance: Alert. Oriented X3. No acute distress. etoh+ Eyes: PERRLA, No Nystagmus ENT: Pharynx normal. Oral Mucosa moist Neck: Normal inspection. Neck supple. CVS: Normal heart rate and rhythm. Pulses normal. Respiratory: No respiratory distress. Equal air entry bilateral, no wheezing/rales/rhonchi Abdomen: Soft and nontender. Bowel sounds are present, no mass palpable, no CVA tenderness Skin: Skin warm and dry. Normal skin color. Normal skin turgor. Extremities: No lower extremity edema. No calf tenderness Neuro: Oriented X 3. No motor deficit. No sensory deficit.No cerebellar signs , cranial nerves II-XII intact Medical Decision Making Medical Decision Making MDM Narrative: 05:00 patient has been taking p.o. fluids and eating food still blood pressure on the lower side 86/45 saturating 88% patient is alert oriented x3 will start IV fluids draw labs to check his magnesium level and electrolytes will do chest x-ray Patient with transient hypotension secondary to poor oral intake lactic acid elevated 2.9 with a type B lactic acidosis from starvation and dehydration not from sepsis patient clinically does not meet the criteria for sepsis elevated bilirubin is from alcohol liver disease patient responded to IV fluids will replace magnesium and potassium patient saturating 85% at room air improved on oxygen clinically not in heart failure will rechecked BNP give some do nebulizing treatment patient is signed out to Dr. Wiley pending disposition Differential Diagnosis Differential Diagnoses: The differential diagnosis associated with the presentation includes Lab Data MDM Lab Attestation statement: I reviewed the patient's lab results. 10/21/24 05:28 10/21/24 05:28 Labs: Lab Results 10/21/24 10/21/24 Range/Units 05:28 05:39 WBC 3.3 L (4.8-10.8) X10*3/uL RBC 2.52 L (4.60-5.80) X10*6/uL Hgb 8.6 L (14.0-18.0) g/dl Hct 25.9 L (42.0-52.0) % MCV 102.8 H (80.0-98.0) fL MCH 34.1 H (27.0-33.0) pg MCHC 33.2 (31.0-36.0) g/dl RDW 15.9 (11.0-16.0) % Plt Count 31 L (160-400) X10*3/uL MPV 12.0 (9.4-12.4) fL Immature Gran % (Auto) 0.6 H (0.0-0.4) % Neut % (Auto) 70.9 (45-73) % Lymph % (Auto) 16.2 L (20-40) % [place] % (Auto) 9.0 (2-11) % Eos % (Auto) 2.1 (0-4) % Baso % (Auto) 1.2 (0-2) % Lymph # (Auto) 0.5 L (1.2-4.9) X10*3/uL [place] # (Auto) 0.3 (0.1-1.2) X10*3/uL Eos # (Auto) 0.1 (0.0-0.4) X10*3/uL Baso # (Auto) 0.0 (0.0-0.2) X10*3/uL Abs Immat Gran (auto) 0.02 (0.00-0.03) X10*3/uL Absolute Neuts (auto) 2.4 (2.0-8.3) x10*3/uL Absolute Nucleated RBC 0.000 (0.0-0.012) X10*3/uL Nucleated RBC % (auto) 0.0 (0.0-0.2) /100WBC PT 18.5 H (10.9-12.4) SEC INR 1.6 H (0.9-1.1) Sodium 135 (135-145) mmol/L Potassium 3.2 L (3.3-5.1) mmol/L Chloride 106 (96-108) mmol/L Carbon Dioxide 21 L (22-29) mmol/L Anion Gap 11 L (12-20) BUN 8 L (9-16) mg/dL Creatinine 0.81 (0.5-1.4) mg/dL Estim Creat Clear Calc 86.4 Estimated GFR > 60 Random Glucose 109 (60-115) mg/dL Lactic Acid 2.9 H* (0.5-2.0) mmol/L Calcium 7.9 L (8.4-10.2) mg/dL Magnesium 1.5 L (1.6-2.6) mg/dL Total Bilirubin 1.7 H (0.0-1.0) mg/dL AST 141 H (5-37) U/L ALT 21 (0-40) U/L Alkaline Phosphatase 128 H (39-117) U/L Ammonia 55 (13-55) umol/L Total Protein 7.8 (6.5-8.0) g/dL Albumin 2.2 L (3.5-5.0) g/dL Ethyl Alcohol 286 mg/dL Influenza Type A (PCR) NEGATIVE (Negative) Influenza Type B (PCR) NEGATIVE (Negative) RSV RNA Qual (PCR) NEGATIVE (Negative) SARS-CoV-2 RNA (RT-PCR) NEGATIVE (Negative) Independent Interpretation I performed an independent interpretation of an: EKG Interpretation: Normal sinus rhythm heart rate 70 92 beats per minute normal interval normal axis normal QTC no acute STT wave changes Medications Administered Generic Name Dose Route Start Last Admin Trade Name Freq PRN Reason Stop Dose Admin Potassium Chloride 10 meq in 100 mls @ 100 mls/hr 10/21/24 06:20 10/21/24 06:26 Potassium Chloride/H20 IV 10/21/24 07:19 100 mls/hr ONCE ONE Administration Discontinued Medications Generic Name Dose Route Start Last Admin Trade Name David PRN Reason Stop Dose Admin Sodium Chloride 1,000 mls @ 999 mls/hr 10/21/24 05:14 10/21/24 07:14 Ns IV 10/21/24 06:14 Infused .Q1H1M ONE Infusion Magnesium Sulfate 2 gm in 50 mls @ 150 mls/hr 10/21/24 06:20 10/21/24 07:14 Magnesium Sulfate/H2o IV 10/21/24 06:39 Infused ONCE ONE Infusion Potassium Bicarbonate 50 meq 10/21/24 06:20 10/21/24 06:26 Potassium Bicarbonate/Cit Ac 25 Meq Tablet.Eff PO 10/21/24 06:21 50 meq ONCE ONE Administration Discharge Plan Discharge Clinical Impression: Alcoholic intoxication, Hypomagnesemia, Acute hypokalemia Patient Disposition: Still a Patient Instructions: Hypokalemia (ED), Alcohol Intoxication (ED), Hypomagnesemia (ED) Additional Instructions: Stop drinking alcohol Have magnesium tablets and thiamine daily Follow with detox Prescriptions: New magnesium oxide 400 mg magnesium capsule 400 mg PO DAILY Qty: 30 0RF thiamine HCl (vitamin B1) 100 mg tablet 100 mg PO DAILY Qty: 30 0RF No Action acetaminophen [Tylenol] 325 mg capsule 325 mg PO Q4H PRN (Reason: pain) Qty: 30 0RF multivitamin [Daily-Barry] Tablet 1 tab PO DAILY Qty: 90 0RF folic acid 1 mg Tablet 1 mg PO DAILY Qty: 90 0RF thiamine HCl (vitamin B1) 100 mg tablet 100 mg PO DAILY Qty: 90 0RF amoxicillin-pot clavulanate 875-125 mg tablet 1 tab PO BID Qty: 8 0RF azithromycin 250 mg tablet See Rx Instructions .ROUTE .COMPLEX Qty: 6 0RF Rx Instructions: For 250 mg dose pack: take 500 mg today (day 1), then 250 mg for 4 days (days 2-5) doxycycline hyclate 100 mg capsule 100 mg PO BID 7 Days Qty: 14 0RF Print Language: Vincentian
[2024-10-21] VITALS (14 sets, daily range): BP systolic 82–128; BP diastolic 45–71; PULSE 88–120; RESP 14–26; TEMP 36.6–38.8; O2SAT 80–97; BMI 20.3
--- NOTE | 2024-10-21 01:02 | PC.NURSE ---
pt resting in stretcher. no acute distress noted, respirations even and unlabored.
--- NOTE | 2024-10-21 03:51 | MHC.EDTECH ---
Addendum entered by Viola Gupta 10/21/24 05:08: patient was given a tuna sandwich W/[place],pt is sitting up eating Original Note: Rounds and vitals completed,O2 sats were at 79% on room air,rn discharge placed pt on 2L VNC,sats are 97% at this time,BP is low , was made aware
--- NOTE | 2024-10-21 05:15 | ECG_ITS ---
Test Reason : hypotension Blood Pressure : / mmHG Vent. Rate : 092 BPM Atrial Rate : 092 BPM P-R Int : 116 ms QRS Dur : 084 ms QT Int : 380 ms P-R-T Axes : 041 017 032 degrees QTc Int : 469 ms Normal sinus rhythm Normal ECG When compared with ECG of 17-OCT-2024 21:17, No significant change was found Referred By: Jesus Manuel Chinchilla Electronically Signed By:STEPHANIE JARA MD
[2024-10-21 05:34] LABS: Basophils Percent Auto 1.2 % (0-2); Eosinophils Absolute Auto 0.1 X10*3/uL (0.0-0.4); Hemoglobin 8.6 g/dl (14.0-18.0); PLT CLUMP 1; SCAN SMEAR FLAG 1
[2024-10-21 05:36] LABS: Eosinophils Percent Auto 2.1 % (0-4); Hematocrit 25.9 % (42.0-52.0); Imm Gran Abs Auto 0.02 X10*3/uL (0.00-0.03); Imm Gran Pct Auto 0.6 % (0.0-0.4); Lymphocytes Absolute Auto 0.5 X10*3/uL (1.2-4.9); Lymphocytes Percent Auto 16.2 % (20-40); Mean Corpuscular HGB Conc 33.2 g/dl (31.0-36.0); Mean Corpuscular Hemoglobin 34.1 pg (27.0-33.0); Mean Corpuscular Volume 102.8 fL (80.0-98.0); Monocytes Absolute Auto 0.3 X10*3/uL (0.1-1.2); Neutrophils Absolute Auto 2.4 x10*3/uL (2.0-8.3); Neutrophils Percent Auto 70.9 % (45-73); Red Blood Count 2.52 X10*6/uL (4.60-5.80); Red Cell Distribution Width 15.9 % (11.0-16.0)
[2024-10-21] MEDS: 0.9 % Sodium Chloride 1,000 ML 999 ML IV (05:37)
[2024-10-21 05:39] LABS: MANUAL DIFF FLAG NO; Platelet Count 31 X10*3/uL (160-400); White Blood Count 3.3 X10*3/uL (4.8-10.8)
[2024-10-21 05:41] LABS: INTERNATIONAL NORM RATIO 1.6 (0.9-1.1); Prothrombin Time 18.5 SEC (10.9-12.4)
--- NOTE | 2024-10-21 05:44 | PC.NURSE ---
provider aware of pt BP/ low o2 sat. pt placed into room, bilateral 18s placed, labs obtained.
[2024-10-21 05:53] LABS: Ammonia 55 umol/L (13-55)
[2024-10-21 05:55] LABS: Alanine Aminotransferase 21 U/L (0-40); Albumin Level 2.2 g/dL (3.5-5.0); Alkaline Phosphatase 128 U/L (39-117); Anion Gap 11 (12-20); Aspartate Amino Transferase 141 U/L (5-37); Bilirubin Total 1.7 mg/dL (0.0-1.0); Blood Urea Nitrogen 8 mg/dL (9-16); Calcium 7.9 mg/dL (8.4-10.2); Carbon Dioxide 21 mmol/L (22-29); Chloride 106 mmol/L (96-108); Creatinine Clr Calc Pharmacy 86.4; Estimated Glomerular Filt Rate > 60; Ethanol 286 mg/dL; Glucose Random 109 mg/dL (60-115); Magnesium 1.5 mg/dL (1.6-2.6); Potassium 3.2 mmol/L (3.3-5.1); Sodium 135 mmol/L (135-145); Total Protein 7.8 g/dL (6.5-8.0)
[2024-10-21 06:03] LABS: Lactic Acid 2.9 mmol/L (0.5-2.0)
[2024-10-21 06:24] LABS: Influenza A PCR NEGATIVE (Negative); Influenza B PCR NEGATIVE (Negative); Resp Syncy Virus RNA Qual PCR NEGATIVE (Negative); SARS COV2 PCR INHOUSE NEGATIVE (Negative)
[2024-10-21] MEDS: Potassium Bicarbonate/Cit AC 25 MEQ TABLET.EFF 50 MEQ PO (06:26)
[2024-10-21] MEDS: Magnesium Sulfate/H2O 2 GM/50 ML PIGGYBACK IV (06:26)
[2024-10-21] MEDS: Potassium Chloride/H20 10 MEQ/100 ML PIGGYBACK 100 MEQ IV (06:26)
[2024-10-21] MEDS: Albuterol Sulfate 2.5 MG, Albuterol/Iprat 2.5/0.5MG 3 ML 3 ML INHALE (07:23)
--- NOTE | 2024-10-21 07:31 | PC.NURSE ---
this RN resumed care of pt at 0645. a&ox4. pt noted to hypotensive, tachycardic, and hypoxic upon assessment. attempted to wean pt back to RA (baseline) where he then noted to desat to 85%. pt then placed back on 3L via NC w/ good effect - SPO2 @ 91%. pt noted to be hot to the touch - rectal temp obtained displaying 98.8. provider notified/aware of findings. IVF/medications completely infused at this time. repeat labs being obtained by tech at this time. pt seems to be in no respiratory distress. sitting upright to promote patent airway. no sob/wob noted. pt currently receiving breathing treatment via RT. respirations even/unlabored. plan of care ongoing. call harris placed within reach.
[2024-10-21 07:45] LABS: Reflex Lactate? Lactic Acid Added
[2024-10-21] MEDS: Piperacillin Sodium/Tazobactam 4.5 GM in 0.9 % Sodium Chloride 100 ML IV (07:51)
[2024-10-21] MEDS: LORazepam 2 MG/ML VIAL 1 MG IVPUSH (07:55)
--- NOTE | 2024-10-21 07:55 | PC.NURSE ---
pt noted to be extremely tremulous/diaphoretic. 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 updated CIWA = 9. pt reports 3, 45oz. of beer and 1/2 pint of vodka per day x the past 30 years. provider notified/aware of results. ativan administered per provider order. pt being initiated on phenobarb protocol - will administer medication when verified. plan of care ongoing.
[2024-10-21 07:58] LABS: Venous Blood Gas Refer to POC result
[2024-10-21 07:59] LABS: VBG Base Excess -1.3 mmol/L; VBG HCO3 20 mmol/L (22-26); VBG pCO2 26 mmHg; VBG pO2 176 mmHg
[2024-10-21 08:07] LABS: Anion Gap 12 (12-20); Blood Urea Nitrogen 7 mg/dL (9-16); Calcium 7.8 mg/dL (8.4-10.2); Carbon Dioxide 19 mmol/L (22-29); Chloride 108 mmol/L (96-108); Creatinine Clr Calc Pharmacy 80.4; Estimated Glomerular Filt Rate > 60; Glucose Random 109 mg/dL (60-115); Potassium 3.9 mmol/L (3.3-5.1); Sodium 135 mmol/L (135-145)
[2024-10-21 08:12] LABS: ~Lactic Acid-LAB USE ONLY 2.7 mmol/L (0.5-2.0)
[2024-10-21 08:14] LABS: B Type Natriuretic Peptide 157 pg/mL (<100)
[2024-10-21] MEDS: PHENobarbitaL sodium 130 MG/ML IM ONCE 236 MG IM (08:20)
[2024-10-21] MEDS: LACTATED RINGERS 1779 ML IV (08:20)
--- NOTE | 2024-10-21 08:30 | PC.NURSE ---
repeat lactic acid elevated. pt remains hypotensive. IVF bolus administered per provider order. BP improvement pending at this time. phenobarb administered per provider order. pt pending admission at this time. plan of care ongoing.
--- NOTE | 2024-10-21 08:44 | PM.IMHP ---
History of Present Illness Date of Service: 10/21/24 Chief Complaint: brought in by ambulance Patient is a 54-year-old male with a past medical history of alcohol abuse and dependence and alcoholic liver disease who presented to [facility] [place] [facility] on 10/20/2024 when he was brought in by EMS for what appeared to be intoxication. In the ED, the patient was initially tolerant of oral fluids but did low blood pressures and hypoxia at 88%. He was treated with intravenous fluids and basic lab work was done. Patient is blood pressure did improve but however the patient's CIWA started to rise. He requires 3 L of supplemental oxygen and his chest x-ray is showing interstitial markings and patchy opacities. The patient has been treated with empiric antibiotics. He also is noted to have electrolyte abnormalities and his magnesium and potassium have been repleted as well. Given his persistent hypoxia as well as alcohol withdrawal, admission has been requested. The patient is seen and examined in the ED around 08:30. The patient currently reports feeling cold and tremulous. He thinks he is withdrawing. He reports a ongoing cough which is nonproductive. He denies any shortness of breath. He denies any fevers. He reports his last drink was prior to ED arrival. At this time his only request is to eat something. Review of Systems Review of Systems: Negative except HPI/interval history. [facility] Medical History Thrombocytopenia Aspiration pneumonia Malnutrition CHF (congestive heart failure) Anemia Hypomagnesemia Cirrhosis Thrombocytopenia Alcoholic liver disease Acute on chronic anemia CHF (congestive heart failure) Anemia Pneumonia Alcohol abuse Alcohol withdrawal syndrome Surgical History No history of previous surgery Social History Household Members: None Household Members Other:: pt homeless Housing: Homeless Housing Other:: homeless Do you presently have visiting nurse or other home services: No Unable to assess alcohol history related to: Refusing to respond Alcohol intake: current Alcohol intake frequency: 3 or more drinks per day Alcohol type: beer and hard liquor Comment: 1 assist to bathroom Patient Tobacco Use Status: Former Tobacco user Tobacco use type: Cigarette Smoked in Last 30 Days: No Second Hand Smoke Exposure: No Use of substances other than those prescribed or required for medical reasons: No Advance Directives: Yes Advance Directives on File: Yes Advance Directives Date on File: 07/13/23 Do you have a plan to hurt others: No Plan service: No Meds Allergies Allergy/AdvReac Type Severity Reaction Status Date / Time No Known Allergies Allergy Verified 10/20/24 20:50 [No Known Allergies*] Active Medications: Current Medications Lactated Ringer's (Lr) 1,779 mls @ 1,779 mls/hr 30 ml/kg infuse over 1 hr (1779 ml) IV .Q1H ONE Stop: 10/21/24 09:14 Last Admin: 10/21/24 08:20 Dose: 1,779 mls/hr Pharmacy Consult (Consult Rx Etoh Phenob Im/Po) 1 each MISCELLANE ONCE PRN; Protocol PRN Reason: Consult order Phenobarbital (Phenobarbital 15 Mg Tablet) 45 mg PO BID JOSE MANUEL Stop: 10/23/24 09:01 Phenobarbital (Phenobarbital 15 Mg Tablet) 15 mg PO BID JOSE MANUEL Stop: 10/25/24 09:01 Phenobarbital (Phenobarbital 15 Mg Tablet) 15 mg PO DAILY JOSE MANUEL Stop: 10/26/24 09:01 Phenobarbital Sodium (Phenobarbital Sodium 130 Mg/Ml Vial Im Q3hx2) 177 mg IM Q3H JOSE MANUEL Stop: 10/21/24 14:01 Physical Exam Vital Signs and Narrative: Vital Signs: Last Vital Signs Temp 98.8 F 10/21/24 07:28 Pulse 99 10/21/24 07:28 Resp 16 10/21/24 07:28 BP 102/55 L 10/21/24 07:28 Pulse Ox 88 L 10/21/24 07:28 O2 Del Method Nasal Cannula 10/21/24 07:28 O2 Flow Rate 3 10/21/24 07:28 BMI result Body Mass Index 21.1 Const: Other: Constitutional - Awake and Alert, No apparent distress Eyes - PERRLA, EOMI Cardiovascular - S1S2, RRR, No edema Respiratory - sats 88% on 3l; no increased work of breathing, no rales or wheezing Gastrointestinal - NT / ND; +BS; No rebound or guarding - No CVA tenderness Extremities - no calf tenderness bilaterally, no swelling Musculoskeletal - Normal inspection, normal ROM Skin - Warm/Dry Neurological - slow to respond, but responds appropriately Psychological - Appropriate affect Results Labs 10/21/24 05:28 10/21/24 07:40 Labs: Laboratory Results - last 24 hr 10/21/24 10/21/24 10/21/24 05:28 05:39 07:40 MCV 102.8 H MCH 34.1 H MCHC 33.2 RDW 15.9 Plt Count 31 L MPV 12.0 Immature Gran % (Auto) 0.6 H Neut % (Auto) 70.9 Lymph % (Auto) 16.2 L Stephens % (Auto) 9.0 Eos % (Auto) 2.1 Baso % (Auto) 1.2 Lymph # (Auto) 0.5 L Stephens # (Auto) 0.3 Eos # (Auto) 0.1 Baso # (Auto) 0.0 Abs Immat Gran (auto) 0.02 Absolute Neuts (auto) 2.4 Absolute Nucleated RBC 0.000 Nucleated RBC % (auto) 0.0 PT 18.5 H INR 1.6 H VBG pH VBG pCO2 VBG pO2 VBG HCO3 VBG O2 Saturation VBG Base Excess Anion Gap 11 L 12 Estim Creat Clear Calc 86.4 80.4 Estimated GFR > 60 > 60 Random Glucose 109 109 Lactic Acid 2.9 H* Lactic Acid F/U @ 2Hr 2.7 H* Calcium 7.9 L 7.8 L Magnesium 1.5 L Total Bilirubin 1.7 H AST 141 H ALT 21 Alkaline Phosphatase 128 H Ammonia 55 B-Natriuretic Peptide 157 H Total Protein 7.8 Albumin 2.2 L Ethyl Alcohol 286 Influenza Type A (PCR) NEGATIVE Influenza Type B (PCR) NEGATIVE RSV RNA Qual (PCR) NEGATIVE SARS-CoV-2 RNA (RT-PCR) NEGATIVE 10/21/24 07:52 MCV MCH MCHC RDW Plt Count MPV Immature Gran % (Auto) Neut % (Auto) Lymph % (Auto) Stephens % (Auto) Eos % (Auto) Baso % (Auto) Lymph # (Auto) Stephens # (Auto) Eos # (Auto) Baso # (Auto) Abs Immat Gran (auto) Absolute Neuts (auto) Absolute Nucleated RBC Nucleated RBC % (auto) PT INR VBG pH 7.50 H VBG pCO2 26 VBG pO2 176 VBG HCO3 20 L VBG O2 Saturation TNP VBG Base Excess -1.3 Anion Gap Estim Creat Clear Calc Estimated GFR Random Glucose Lactic Acid Lactic Acid F/U @ 2Hr Calcium Magnesium Total Bilirubin AST ALT Alkaline Phosphatase Ammonia B-Natriuretic Peptide Total Protein Albumin Ethyl Alcohol Influenza Type A (PCR) Influenza Type B (PCR) RSV RNA Qual (PCR) SARS-CoV-2 RNA (RT-PCR) Imaging Radiologist's Impressions: Impressions Chest X-Ray 10/21/24 05:23 IMPRESSION: Increased diffuse interstitial opacities and increased bibasilar patchy and streaky opacities. Possible trace bilateral pleural effusions. This study was presented today October 16, 2024 for interpretation. Stat results provided at this time as requested by referring provider. Electronically signed by: Elvira Chaudhary MD 10/21/2024 08:11 AM [facility] [place] and Plan (1) Alcohol withdrawal syndrome: Status: Acute Plan 54-year-old male with a past medical history of alcohol abuse and dependence and stigmata of chronic liver disease who was brought in by ambulance for what appeared to be intoxication. The patient has been found to have hypoxia requiring 3 L of supplemental oxygen as well as hypotension which has responded to intravenous fluids. He is exhibiting signs of withdrawal and given his hypoxia now will be admitted for further workup and treatment. 1. Acute alcohol withdrawal Increasing CIWA while in the ED, has been treated with a dose of IV Ativan and has been started on phenobarb We will continue with the same Monitor electrolytes Consider addiction medicine consult, at this time patient does not seem interested and is only requesting food 2. Acute respiratory failure with hypoxia Chest x-ray with some interstitial findings as well as patchy opacities Given his intoxication and prior aspiration, we will empirically treat with IV antibiotics Flu/RSV/COVID negative 3. Hypotension reviewed prior BP -- appears to have low normal BP typically has responded to IVF not due to severe sepsis 4. HypoK and HypoMg repleted, contineu to monitor 5. Alcoholic liver disease leukopenia / thrombocytopenia / elevated T. bili are secondary to chronic liver disease, not severe sepsis Full Code DVT pptx -- mechanical due to thrombocytopenia Pt with alcohol withdrawal complicated by acute resp. failure requiring supplemental O2 with risk factors including alcoholic liver disease / cirrhosis therefore expected to require at least 2 midnights for medical treatment hence will be admitted as inpatient. Quality Stroke Does the patient have a stroke diagnosis?: No VTE Prior VTE?: No VTE Risk Level:: Medical - moderate - high VTE Device Contraindication: N/A - Device Ordered VTE Drug Contraindication: Treatment Not Tolerated
--- NOTE | 2024-10-21 09:12 | PHA.MEDREC ---
Pharmacy Consult ? Medication Reconciliation Pharmacy has completed the medication reconciliation. Spoke to patient at bedside, he states he doesn't take any medications at home. This is consistent with pharmacy claims, as last fill history is from April 2024.
[2024-10-21] MEDS: Folic Acid 1 MG TABLET PO (09:27)
[2024-10-21] MEDS: Thiamine HCL 100 MG TABLET PO (09:27)
[2024-10-21 09:54] LABS: Reflex Lactate? 2 Y
--- NOTE | 2024-10-21 10:15 | PC.NURSE ---
pt noted to desat to 80% on 4L via NC w/ good read. pt turned/repositioned to promote patent airway. wob noted. NC titrated to 6L w/ no good effect - SPO2 @ 83%. pt then transitioned to oxymask - pt currently resting @ 90% on 8L via oxymask at this time. pt remains tachycardic/tachypneic/hypoxic at this time. BP continues to improve s/p IVF bolus. plan of care ongoing. call harris placed nameliane roa.
[2024-10-21] MEDS: PHENobarbitaL sodium 130 MG/ML VIAL IM Q3Hx2 177 MG IM ×2 (12:15→13:58)
[2024-10-21] MEDS: Piperacillin Sodium/Tazobactam 3.375 GM in 0.9 % Sodium Chloride 50 ML IV ×2 (13:58→19:24)
--- NOTE | 2024-10-21 16:08 | MHC.EDTECH ---
Admitted patient. Lactic ordered at 954 by lab. Informed by lab ~1545 about missed 954 lactic per Phelbotomy as this was an admitted patient. Lactic drawn at 1556 and sent.
[2024-10-21 16:23] LABS: ~Lactic Acid-LAB USE ONLY 2.6 mmol/L (0.5-2.0)
[2024-10-21] MEDS: 0.9 % Sodium Chloride Flush 3 ML SYRINGE IVFLUSH (19:35)
[2024-10-21] MEDS: Acetaminophen 325 MG TABLET 650 MG PO (20:30)
[2024-10-21] MEDS: PHENobarbitaL 15 MG TABLET 45 MG PO (20:30)
[2024-10-22] VITALS (7 sets, daily range): BP systolic 114–133; BP diastolic 59–79; PULSE 97–109; RESP 16–20; TEMP 37–37.3; O2SAT 90–93
[2024-10-22] MEDS: Piperacillin Sodium/Tazobactam 3.375 GM in 0.9 % Sodium Chloride 50 ML IV ×4 (02:51→19:56)
--- NOTE | 2024-10-22 07:00 | CA_ITS ---
Transthoracic Echocardiogram Patient (Last, First, Middle): Charbel Delgado, Gender: Male Date of : 1970 Age: 54 Procedure Date: 10/22/2024 Procedure Type: Transthoracic Echocardiogram [place] [facility] [place]: 165.1 cm Weight: 56.7 kg BSA: 1.62 m2 Heart Rate: bpm BP: 133 / 78 mmHg Liner Assembler: Referring MD: Astrid Hines MD Collar Folder Operator: Axel Diane MD Symptoms: chf/cmp in setting of alcohol Study Quality: Adequate ECG Rhythm: Sinus Conclusions: - 1. Normal LV ejection fraction of 60 65% with impaired relaxation filling pattern 2. Moderately dilated left atrium 3. Cardiac valvular Dopplers within normal limits 4. Normal RV systolic pressure 5. No gross pericardial effusion Findings Left Ventricle Normal left ventricular size, thickness, and systolic function. The visually estimated ejection fraction is between 60-65%. Spectral Doppler is indicative of an impaired relaxation filling pattern. E/E prime ratio is between 8 and 15 consistent with indeterminate filling pressures. Right Ventricle Normal right ventricular cavity size and systolic function. Atria The left atrium is moderately dilated. Interatrial shunt cannot be excluded. The right atrium is likely dilated. Aortic Valve There is mild calcification of the aortic valve. There is no aortic valve stenosis. There is no aortic valve regurgitation. Mitral Valve There is mild anterior and posterior mitral leaflet thickening. There is trace mitral valve regurgitation. There is no mitral valve stenosis. Pulmonic Valve The pulmonic valve was not well visualized. Tricuspid Valve Likely normal tricuspid valve structure and function. There is trace tricuspid valve regurgitation. The right ventricular systolic pressure is normal. The right ventricular systolic pressure is 15 mmHg. Normal right atrial pressure. There is no evidence of pulmonary hypertension. Great Vessels All visible segments of the aorta are normal in size. The pulmonary artery was not well visualized. There is no dilatation of the ascending aorta measuring 2.70 cm. Venous The inferior vena cava is normal in size and collapses greater than 50% with inspiration. Pericardium/Pleural There is no evidence of pericardial effusion. Prior Study Comparison No significant change compared to prior study. Measurements 2D Linear Measurements IVSd: 0.84 0.6-0.9/0.6-1.0 cm LVIDd: 3.95 3.9-5.3/4.2-5.9 cm LVIDd Index: 2.44 2.4-3.2/2.2-3.1 cm/m2 LVIDs: 2.42 2.0-3.6 cm LVPWd: 0.79 0.7-1.1 cm Ao Root: 3.30 2.1-3.5 cm LA Diam: 3.50 2.7-3.8/3.0-4.0 cm LAIDs Index: 2.16 1.5-2.3 cm/m2 LV Mass: 116.40 67-162/88-224 g LV Mass Index: 71.85 43-95/49-115 g/m2 LVOT Diam: 2.20 3.0+(-)1.3 cm Mitral Valve MV Pk E: 1.01 MV PK A: 1.18 MV Decel Time: 131.00 E/A: 0.90 E'Lateral: 9.57 E'Medial: 7.29 E/E' Med: 13.90 E/E' Lat: 10.60 PHT: 38.00 MVA PHT: 5.79 Decel [place]: 7.75 Aortic Valve AoV Pk Orion: 1.82 AoV Mn Orion: 1.21 AoV VTI: 0.39 AoV Pk Grad: 13.00 Aov Mn Grad: 7.00 DARION Cont.VTI: 2.46 LVOT LVOT Pk Orion: 1.12 LVOT Mn Orion: 0.75 LVOT VTI: 0.25 LVOT Pk Grad: 5.00 LVOT Mn Grad: 3.00 LVOT Diam: 2.20 LVOT Area: 3.80 Diastolic Function MV Pk E: 1.01 MV Pk A: 1.18 E/A: 0.90 E'Medial: 7.29 E/E' Med: 13.90 E' Laterial: 9.57 E/E' Lat: 10.60 Right Ventricle TAPSE (mm): 31.00 Tricuspid Valve TR Pk Orion: 1.71 TR Pk Grad: 12.00 RA Press: 3.00 RVSP: 15.00 Great Vessels Aorta Ao Root-2D: 3.30 2.0-3.7 cm Ao Asc: 2.70 2.1-3.4 cm Pulmonary Valve PV Pk Orion: 1.30 Peak PV Grad: 7.00 Updated in Other Vendor System with Status of Final Axel Diane MD electronically signed on 10/22/2024 4:45:36 PM with status of Final
[2024-10-22] MEDS: 0.9 % Sodium Chloride Flush 3 ML SYRINGE IVFLUSH ×3 (07:53→19:51)
[2024-10-22] MEDS: Folic Acid 1 MG TABLET PO (07:53)
[2024-10-22 08:02] LABS: Hematocrit 27.1 % (42.0-52.0); Mean Corpuscular HGB Conc 33.2 g/dl (31.0-36.0); Mean Corpuscular Hemoglobin 34.6 pg (27.0-33.0); Mean Corpuscular Volume 104.2 fL (80.0-98.0); Mean Platelet Volume 12.2 fL (9.4-12.4); Platelet Count 34 X10*3/uL (160-400); Red Cell Distribution Width 16.4 % (11.0-16.0); White Blood Count 4.9 X10*3/uL (4.8-10.8)
[2024-10-22] MEDS: Furosemide 20 MG/2 ML VIAL IVPUSH (08:16)
[2024-10-22] MEDS: PHENobarbitaL 15 MG TABLET 45 MG PO ×2 (08:16→19:55)
[2024-10-22] MEDS: Thiamine HCL 100 MG TABLET PO (08:21)
[2024-10-22 08:40] LABS: Alanine Aminotransferase 18 U/L (0-40); Albumin Level 2.1 g/dL (3.5-5.0); Alkaline Phosphatase 205 U/L (39-117); Anion Gap 9 (12-20); Aspartate Amino Transferase 138 U/L (5-37); Bilirubin Direct 1.3 mg/dL (0.0-0.5); Blood Urea Nitrogen 7 mg/dL (9-16); Calcium 7.7 mg/dL (8.4-10.2); Carbon Dioxide 20 mmol/L (22-29); Chloride 107 mmol/L (96-108); Creatinine Clr Calc Pharmacy 78.2; Estimated Glomerular Filt Rate > 60; Glucose Random 108 mg/dL (60-115); Potassium 3.8 mmol/L (3.3-5.1); Sodium 132 mmol/L (135-145); Total Protein 7.9 g/dL (6.5-8.0)
--- NOTE | 2024-10-22 08:45 | MHC.CM.PN ---
EMR REVIEWED, PT W/ETOH WITHDRAWAL, CM MET W/PT WHO REPORTS [place] [address] AND IS CURRENTLY DECLINING [facility] AND REPORTS HE WOULD LIKE TO RETURN TO THE STREET, PT IS INDEP W/ALL CARE AND MOBILITY, NO DME/HOME SERVICES, PER CM FROM PREVIOUS ADMIT PT WAS AGREEABLE TO [facility] ON PREVIOUS ADMIT. HCP ON FILE FROM PREVIOUS ADMIT AND IS PT'S BROTHER JACQUI ULLOA, PT DOES REPORT HE ALSO HAS ANOTHER BROTHER ALFREDA SHANNON HOWEVER [facility] NOT [facility]. PT VERIFIES HE HAS NO PCP, DECLINES CM ASSISTANCE W/PCP AND PT ENCOURAGED TO GO TO [facility] IF HE CHANGES HIS MIND AFTER DC.
[2024-10-22 08:56] LABS: Procalcitonin 0.28 ng/mL
--- NOTE | 2024-10-22 13:20 | P.PNIM_ITS ---
Subjective Subjective Date of Service: 10/22/24 Interval History: hypoxia alcohol withdrawal Electrolyte abnormalities Review of Systems Patient says shortness of breath somewhat improving still hypoxic on 6 L oxygen Denies any chest pain Physical Exam 2 Vital Signs: Vital Signs: Last Vital Signs Temp 99.2 F 10/22/24 11:12 Pulse 97 10/22/24 11:12 Resp 18 10/22/24 11:12 BP 115/65 10/22/24 11:12 Pulse Ox 92 10/22/24 11:12 O2 Del Method Nasal Cannula 10/22/24 11:12 O2 Flow Rate 6 10/22/24 11:12 BMI result Body Mass Index 20.3 Appearance: Alert.? Oriented X3.? cvs: rrr, [id number] , no murmur res: air entry fair ,diminshed at bases. abd: no rebound or guarding ,nt, bs present. ext pulses present , no cyanosis ,1+edema . neuro: axo3 , nonfocal. Objective Data Active Medications Acetaminophen (Acetaminophen 325 Mg Tablet) 650 mg PO Q6H PRN PRN Reason: Pain, Mild (Pain Scale 1-3), fever or headache Last Admin: 10/21/24 20:30 Dose: 650 mg Documented By: OLEG Calcium Carbonate (Calcium Carbonate 750 Mg Tab.Chew) 750 mg PO Q4H PRN PRN Reason: Heartburn Folic Acid (Folic Acid 1 Mg Tablet) 1 mg PO DAILY [facility] Last Admin: 10/22/24 07:53 Dose: 1 mg Documented By: ERNIE Furosemide (Furosemide 20 Mg/2 Ml Vial) 20 mg IVPUSH DAILY [facility]; Protocol Last Admin: 10/22/24 08:16 Dose: 20 mg Documented By: ERNIE Piperacillin Sod/Tazobactam (Sod 3.375 gm/ Sodium Chloride) 50 mls @ 100 mls/hr IV Q6H [facility] Last Infusion: 10/22/24 09:06 Dose: Infused Documented By: ERNIE Magnesium Hydroxide (Milk Of Magnesia 30 Ml Oral.Susp) 30 ml PO DAILY PRN PRN Reason: Constipation Melatonin (Melatonin 3 Mg Tablet) 6 mg PO BEDTIME PRN PRN Reason: Insomnia Pharmacy Consult (Consult Rx Etoh Phenob Im/Po) 1 each MISCELLANE ONCE PRN; Protocol PRN Reason: Consult order Phenobarbital (Phenobarbital 15 Mg Tablet) 45 mg PO BID [facility] Stop: 10/23/24 09:01 Last Admin: 10/22/24 08:16 Dose: 45 mg Documented By: ERNIE Phenobarbital (Phenobarbital 15 Mg Tablet) 15 mg PO BID [facility] Stop: 10/25/24 09:01 Phenobarbital (Phenobarbital 15 Mg Tablet) 15 mg PO DAILY [facility] Stop: 10/26/24 09:01 Sodium Chloride (0.9 % Sodium Chloride Flush 3 Ml Syringe) 3 ml IVFLUSH QSHIFT [facility] Last Admin: 10/22/24 07:53 Dose: 3 ml Documented By: ERNIE Thiamine HCl (Thiamine Hcl 100 Mg Tablet) 200 mg PO DAILY [facility] Labs 10/22/24 06:37 10/22/24 06:37 Labs: Laboratory Results - last 24 hr 10/21/24 10/22/24 15:56 06:37 MCV 104.2 H MCH 34.6 H MCHC 33.2 RDW 16.4 H Plt Count 34 L MPV 12.2 Absolute Nucleated RBC 0.000 Nucleated RBC % (auto) 0.0 Anion Gap 9 L Estim Creat Clear Calc 78.2 Estimated GFR > 60 Random Glucose 108 Lactic Acid F/U @ 4Hr 2.6 H* Calcium 7.7 L Total Bilirubin 2.0 H Direct Bilirubin 1.3 H AST 138 H ALT 18 Alkaline Phosphatase 205 H Total Protein 7.9 Albumin 2.1 L Procalcitonin 0.28 Microbiology Microbiology Results: Microbiology 10/21/24 05:39 Blood Culture - Preliminary Blood - Venous No growth after 24 hours. 10/21/24 05:28 Blood Culture - Preliminary Blood - Venous No growth after 24 hours. Assessment and Plan (1) Acute hypokalemia: Status: Acute (2) Hypomagnesemia: Status: Acute (3) Hepatic encephalopathy: Status: Acute Plan 54-year-old male with a past medical history of alcohol abuse and dependence and stigmata of chronic liver disease who was brought in by ambulance for what appeared to be intoxication. The patient has been found to have hypoxia requiring 3 L of supplemental oxygen as well as hypotension which has responded to intravenous fluids. He is exhibiting signs of withdrawal and given his hypoxia now will be admitted for further workup and treatment. Acute alcohol withdrawal : melissa enriquez continue phenobarbital. Consider addiction medicine consult, at this time patient does not seem interested and is only requesting food Acute respiratory failure with hypoxia Chest x-ray with some interstitial findings as well as patchy opacities Given his intoxication and prior aspiration Flu/RSV/COVID negative continue with IV antibiotics HypoK and HypoMg repleted, continue to monitor mild hypocalemia -calcium levels seems normal when corrected for hypoalbuminemia. Alcoholic liver disease leukopenia / thrombocytopenia / elevated T. bili are secondary to chronic liver disease, not severe sepsis DVT pptx -- mechanical due to thrombocytopenia ongoing alcohol withdrawal complicated by acute resp. failure requiring supplemental O2 with risk factors including alcoholic liver disease / cirrhosis -need oxygen taper,a ntibiotics ,renal function/electrolytes monitering Quality Stroke Does the patient have a stroke diagnosis?: No VTE Prior VTE?: No VTE Risk Level:: Medical - moderate - high VTE Device Contraindication: N/A - Device Ordered VTE Drug Contraindication: Treatment Not Tolerated
[2024-10-22] MEDS: Albumin Human 25 % 100 ML IV ×2 (16:40→19:52)
[2024-10-22] MEDS: Acetaminophen 325 MG TABLET 650 MG PO (16:40)
[2024-10-22] MEDS: Magnesium Oxide 400 MG TABLET PO (17:56)
[2024-10-23] VITALS (13 sets, daily range): BP systolic 100–141; BP diastolic 53–75; PULSE 94–109; RESP 16–35; TEMP 36.3–37.8; O2SAT 91–98; BMI 21.7
[2024-10-23] MEDS: Albumin Human 25 % 100 ML IV ×4 (02:26→14:31)
[2024-10-23] MEDS: Piperacillin Sodium/Tazobactam 3.375 GM in 0.9 % Sodium Chloride 50 ML IV ×4 (02:26→20:38)
[2024-10-23 07:06] LABS: Adenovirus PCR Not Detected (Not Detect.); Bordetella parapertussis PCR Not Detected (Not Detect.); Bordetella pertussis PCR Not Detected (Not Detect.); Chlamydia pneumoniae PCR Not Detected (Not Detect.); Coronavirus 229E PCR Not Detected (Not Detect.); Coronavirus HKU1 PCR Not Detected (Not Detect.); Coronavirus NL63 PCR Not Detected (Not Detect.); Coronavirus OC43 PCR Not Detected (Not Detect.); Human metapneumovirus PCR Not Detected (Not Detect.); Influenza A PCR Not Detected (Not Detect.); Influenza B PCR Not Detected (Not Detect.); Mycoplasma pneumoniae PCR Not Detected (Not Detect.); Parainfluenza 1 PCR Not Detected (Not Detect.); Parainfluenza 2 PCR Not Detected (Not Detect.); Parainfluenza 3 PCR Not Detected (Not Detect.); Parainfluenza 4 PCR Not Detected (Not Detect.); RSV PCR Not Detected (Not Detect.); Rhino/Enterovirus PCR Not Detected (Not Detect.); SARS-CoV-2 PCR Not Detected (Not Detect.)
[2024-10-23] MEDS: Folic Acid 1 MG TABLET PO (08:12)
[2024-10-23] MEDS: Magnesium Oxide 400 MG TABLET PO ×2 (08:12→16:35)
[2024-10-23] MEDS: Thiamine HCL 100 MG TABLET 200 MG PO (08:12)
[2024-10-23] MEDS: 0.9 % Sodium Chloride Flush 3 ML SYRINGE IVFLUSH ×3 (08:13→23:47)
[2024-10-23] MEDS: PHENobarbitaL 15 MG TABLET 45 MG PO (08:13)
[2024-10-23 08:47] LABS: Alanine Aminotransferase 12 U/L (0-40); Albumin Level 2.6 g/dL (3.5-5.0); Alkaline Phosphatase 148 U/L (39-117); Anion Gap 10 (12-20); Aspartate Amino Transferase 89 U/L (5-37); Bilirubin Total 2.9 mg/dL (0.0-1.0); Blood Urea Nitrogen 10 mg/dL (9-16); Calcium 8.6 mg/dL (8.4-10.2); Carbon Dioxide 22 mmol/L (22-29); Chloride 106 mmol/L (96-108); Creatinine Clr Calc Pharmacy 98.4; Estimated Glomerular Filt Rate > 60; Glucose Random 92 mg/dL (60-115); Potassium 3.8 mmol/L (3.3-5.1); Sodium 134 mmol/L (135-145); Total Protein 7.3 g/dL (6.5-8.0)
--- NOTE | 2024-10-23 09:56 | PM.CNPUL ---
History of Present Illness History of Present Illness Consult date: 10/23/24 Chief complaint: HYPOXIA Narrative: This is an inpatient pulmonary consultation. The patient is a 54-year-old male with a past medical history of alcohol abuse and dependence and alcoholic liver disease who [place] [facility] when he was brought in by EMS for what appeared to be intoxication. In the ED, the patient was initially tolerant of oral fluids but did low blood pressures and hypoxia at 88%. He was treated with intravenous fluids and basic lab work was done. Patient is blood pressure did improve but however the patient's CIWA started to rise. He requires 3 L of supplemental oxygen and his chest x-ray is showing interstitial markings and patchy opacities. The patient has been treated with empiric antibiotics. He was then discharge and now returns with worsening hypoxia. He did have a CT chest that I personally reviewed demonstrating a dense LLL consolidations, also airspace disease in the RUL and TITA. He desats quickly when removing the nasal cannula. He was placed on Zosyn, but slow to improve. Review of Systems Constitutional: Constitutional: Reports chills, Reports fatigue and Denies fever(s) Eyes: Eyes: Reports no additional eye complaints ENT: Reports system reviewed and no additional complaints, except as documented Cardiovascular: Cardiovascular: Denies chest pain and Reports dyspnea Respiratory: Respiratory: Reports cough, Reports dyspnea and Denies wheezing Gastrointestinal: Gastrointestinal: Reports as per HPI Musculoskeletal: Musculoskeletal: Reports no additional musculoskeletal complaints Neurologic: Reports tremor(s) Endocrine: Endocrine: Reports fatigue Hematologic/Lymphatic: Hematologic/Lymphatic: Reports no additional hematologic/lymphatic complaints Allergic/Immunologic: Allergic/Immunologic: Denies wheezing [facility] Past Medical History Medical History (Updated 10/23/24 @ 10:01 by Jaxson Fall MD) Aspiration pneumonia Thrombocytopenia Malnutrition CHF (congestive heart failure) Anemia Hypomagnesemia Cirrhosis Thrombocytopenia Alcoholic liver disease Acute on chronic anemia CHF (congestive heart failure) Anemia Pneumonia Alcohol abuse Alcohol withdrawal syndrome Surgical History Surgical History No history of previous surgery Social History Social History Household Members: None Household Members Other:: pt homeless Housing: Homeless Housing Other:: homeless Do you presently have visiting nurse or other home services: No Unable to assess alcohol history related to: Refusing to respond Alcohol intake: current Alcohol intake frequency: 3 or more drinks per day Alcohol type: beer and hard liquor Comment: 1 assist to bathroom Patient Tobacco Use Status: Former Tobacco user Tobacco use type: Cigarette Second Hand Smoke Exposure: No Advance Directives Date on File: 07/13/23 service: No Meds Allergies Allergy/AdvReac Type Severity Reaction Status Date / Time No Known Allergies Allergy Verified 10/20/24 20:50 [No Known Allergies*] Active Medications: Current Medications Acetaminophen (Acetaminophen 325 Mg Tablet) 650 mg PO Q6H PRN PRN Reason: Pain, Mild (Pain Scale 1-3), fever or headache Last Admin: 10/22/24 16:40 Dose: 650 mg Calcium Carbonate (Calcium Carbonate 750 Mg Tab.Chew) 750 mg PO Q4H PRN PRN Reason: Heartburn Folic Acid (Folic Acid 1 Mg Tablet) 1 mg PO DAILY [facility] Last Admin: 10/23/24 08:12 Dose: 1 mg Furosemide (Furosemide 20 Mg/2 Ml Vial) 20 mg IVPUSH BID@0900,1800 [facility]; Protocol Piperacillin Sod/Tazobactam (Sod 3.375 gm/ Sodium Chloride) 50 mls @ 100 mls/hr IV Q6H [facility] Last Admin: 10/23/24 08:13 Dose: 100 mls/hr Vancomycin HCl 1,000 mg/ (Sodium Chloride) 270 mls @ 270 mls/hr IV Q12H [facility] Albumin Human (Kedbumin 25 %) 100 mls @ 100 mls/hr IV Q1H [facility] Stop: 10/23/24 11:59 Magnesium Hydroxide (Milk Of Magnesia 30 Ml Oral.Susp) 30 ml PO DAILY PRN PRN Reason: Constipation Magnesium Oxide (Magnesium Oxide 400 Mg Tablet) 400 mg PO BIDPC [facility] Last Admin: 10/23/24 08:12 Dose: 400 mg Melatonin (Melatonin 3 Mg Tablet) 6 mg PO BEDTIME PRN PRN Reason: Insomnia Pharmacy Consult (Consult Rx Etoh Phenob Im/Po) 1 each MISCELLANE ONCE PRN; Protocol PRN Reason: Consult order Pharmacy Consult (Consult Rx Vancomycin Dosing) 1 each MISCELLANE DAILY PRN PRN Reason: Consult order Phenobarbital (Phenobarbital 15 Mg Tablet) 15 mg PO BID [facility] Stop: 10/25/24 09:01 Phenobarbital (Phenobarbital 15 Mg Tablet) 15 mg PO DAILY [facility] Stop: 10/26/24 09:01 Sodium Chloride (0.9 % Sodium Chloride Flush 3 Ml Syringe) 3 ml IVFLUSH QSHIFT [facility] Last Admin: 10/23/24 08:13 Dose: 3 ml Thiamine HCl (Thiamine Hcl 100 Mg Tablet) 200 mg PO DAILY [facility] Last Admin: 10/23/24 08:12 Dose: 200 mg Physical Exam Vital Signs: Vital Signs: Last Vital Signs Temp 99.3 F 10/23/24 07:30 Pulse 94 10/23/24 07:30 Resp 20 10/23/24 07:30 BP 106/59 L 10/23/24 07:30 Pulse Ox 91 L 10/23/24 07:30 O2 Del Method Oxymask 10/23/24 07:30 O2 Flow Rate 7 10/23/24 07:30 BMI result Body Mass Index 21.7 Appearance: Alert.? Oriented X3.? cvs: rrr, [id number] , no murmur res: air entry fair ,diminshed at bases. abd: no rebound or guarding ,nt, bs present. ext pulses present , no cyanosis ,1+edema . neuro: axo3 , nonfocal. Results Laboratory Findings 10/22/24 06:37 10/23/24 08:18 ABG, PT/INR, D-dimer: PT/INR, D-dimer PT 18.5 SEC (10.9-12.4) H 10/21/24 05:28 INR 1.6 (0.9-1.1) H 10/21/24 05:28 Abnormal lab findings: Abnormal Labs 10/21/24 10/21/24 10/21/24 05:28 05:39 07:40 WBC 3.3 L RBC 2.52 L Hgb 8.6 L Hct 25.9 L MCV 102.8 H MCH 34.1 H RDW Plt Count 31 L Immature Gran % (Auto) 0.6 H Lymph % (Auto) 16.2 L Lymph # (Auto) 0.5 L PT 18.5 H INR 1.6 H VBG pH VBG HCO3 Sodium Potassium 3.2 L Carbon Dioxide 21 L 19 L Anion Gap 11 L BUN 8 L 7 L Lactic Acid 2.9 H* Lactic Acid F/U @ 2Hr 2.7 H* Lactic Acid F/U @ 4Hr Calcium 7.9 L 7.8 L Magnesium 1.5 L Total Bilirubin 1.7 H Direct Bilirubin AST 141 H Alkaline Phosphatase 128 H B-Natriuretic Peptide 157 H Albumin 2.2 L 10/21/24 10/21/24 10/22/24 07:52 15:56 06:37 WBC RBC 2.60 L Hgb 9.0 L Hct 27.1 L MCV 104.2 H MCH 34.6 H RDW 16.4 H Plt Count 34 L Immature Gran % (Auto) Lymph % (Auto) Lymph # (Auto) PT INR VBG pH 7.50 H VBG HCO3 20 L Sodium 132 L Potassium Carbon Dioxide 20 L Anion Gap 9 L BUN 7 L Lactic Acid Lactic Acid F/U @ 2Hr Lactic Acid F/U @ 4Hr 2.6 H* Calcium 7.7 L Magnesium Total Bilirubin 2.0 H Direct Bilirubin 1.3 H AST 138 H Alkaline Phosphatase 205 H B-Natriuretic Peptide Albumin 2.1 L 10/23/24 08:18 WBC RBC Hgb Hct MCV MCH RDW Plt Count Immature Gran % (Auto) Lymph % (Auto) Lymph # (Auto) PT INR VBG pH VBG HCO3 Sodium 134 L Potassium Carbon Dioxide Anion Gap 10 L BUN Lactic Acid Lactic Acid F/U @ 2Hr Lactic Acid F/U @ 4Hr Calcium Magnesium Total Bilirubin 2.9 H Direct Bilirubin AST 89 H Alkaline Phosphatase 148 H B-Natriuretic Peptide Albumin 2.6 L Microbiology: Microbiology 10/21/24 05:39 Blood - Venous Blood Culture - Preliminary No growth after 48 hours. 10/21/24 05:28 Blood - Venous Blood Culture - Preliminary No growth after 48 hours. 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
[2024-10-23] MEDS: Furosemide 20 MG/2 ML VIAL IVPUSH ×2 (10:24→18:13)
[2024-10-23] MEDS: vancomycin HCL 1,500 MG in 0.9 % Sodium Chloride 500 ML 333.33 MG IV (10:28)
--- NOTE | 2024-10-23 10:46 | PHA.PROG ---
Admission Date/Time: October 21, 2024 08:48 Indication: REspiratory Weight in k.9 kg Adjusted body weight in Kg: [place] body weight in Kg: Obesity Dosing Indication % IBW: Serum Creatinine - Last 168 Hours 10/21/24 10/21/24 10/22/24 05:28 07:40 06:37 Creatinine 0.81 0.87 0.86 10/23/24 08:18 Creatinine 0.73 Estimated CrCl and GFR - Last 168 Hours 10/21/24 10/21/24 10/22/24 05:28 07:40 06:37 Estim Creat Clear Calc 86.4 80.4 78.2 Estimated GFR > 60 > 60 > 60 10/23/24 08:18 Estim Creat Clear Calc 98.4 Estimated GFR > 60 Vancomycin Loading Dose: 1500mg Current Vancomycin Dosing Regimen:1000mg q12h Vancomycin Monitoring using AUC goal of 400 - 600 range with trough as surrogate marker: 512 mg/L Date and Time for next Vancomycin Level to be drawn: 10/24 @2100 Pharmacist Comments on Vancomycin Plan: Projected trough is 15.2 mg/L Vancomycin dosing will take advantage of [employer] as a clinical decision support tool that uses Bayesian modeling to calculate individual patient's pharmacokinetic parameters and forecast the patient's drug concentration time course with the target goal AUC 24 range of 400 - 600 mg/L/hr.
--- NOTE | 2024-10-23 13:41 | PC.NURSE ---
pt desat to 86% on oxymask, switched to NRB at 15L,
--- NOTE | 2024-10-23 13:43 | PC.NURSE ---
Pt gabriela procedure well. catheter is draining clear yellow fluid.
[2024-10-23] MEDS: Lidocaine HCl 1 % MPF 5 ML VIAL SUBCUT (14:23)
--- NOTE | 2024-10-23 14:32 | P.PNIM_ITS ---
Subjective Subjective Date of Service: 10/23/24 Interval History: AHRF, pneumonia Review of Systems sob seems similar has ascitis still hypoxic -requring 6-7 liter nc talking better Physical Exam 2 Vital Signs: Vital Signs: Last Vital Signs Temp 98.2 F 10/23/24 12:00 Pulse 98 10/23/24 14:03 Resp 23 H 10/23/24 14:03 BP 124/53 L 10/23/24 14:03 Pulse Ox 97 10/23/24 14:03 O2 Del Method Non-Rebreather Ma sk 10/23/24 14:03 O2 Flow Rate 15 10/23/24 14:03 BMI result Body Mass Index 21.7 Appearance: Alert.? Oriented X3.? cvs: rrr, [id number]. res: air entry fair ,diminshed at bases. abd: no rebound or guarding ,nt, bs present. ext pulses present , no cyanosis ,1+edema . neuro: axo3 , nonfocal. Objective Data Active Medications Acetaminophen (Acetaminophen 325 Mg Tablet) 650 mg PO Q6H PRN PRN Reason: Pain, Mild (Pain Scale 1-3), fever or headache Last Admin: 10/22/24 16:40 Dose: 650 mg Documented By: FELIPA Calcium Carbonate (Calcium Carbonate 750 Mg Tab.Chew) 750 mg PO Q4H PRN PRN Reason: Heartburn Folic Acid (Folic Acid 1 Mg Tablet) 1 mg PO DAILY [facility] Last Admin: 10/23/24 08:12 Dose: 1 mg Documented By: JARETT Furosemide (Furosemide 20 Mg/2 Ml Vial) 20 mg IVPUSH BID@0900,1800 [facility] MANUEL; Protocol Last Admin: 10/23/24 10:24 Dose: 20 mg Documented By: JARETT Piperacillin Sod/Tazobactam (Sod 3.375 gm/ Sodium Chloride) 50 mls @ 100 mls/hr IV Q6H [facility] Last Infusion: 10/23/24 08:46 Dose: Infused Documented By: JARETT Vancomycin HCl 1,000 mg/ (Sodium Chloride) 270 mls @ 270 mls/hr IV Q12H [facility] Magnesium Hydroxide (Milk Of Magnesia 30 Ml Oral.Susp) 30 ml PO DAILY PRN PRN Reason: Constipation Magnesium Oxide (Magnesium Oxide 400 Mg Tablet) 400 mg PO BIDPC [facility] Last Admin: 10/23/24 08:12 Dose: 400 mg Documented By: JARETT Melatonin (Melatonin 3 Mg Tablet) 6 mg PO BEDTIME PRN PRN Reason: Insomnia Pharmacy Consult (Consult Rx Etoh Phenob Im/Po) 1 each MISCELLANE ONCE PRN; Protocol PRN Reason: Consult order Pharmacy Consult (Consult Rx Vancomycin Dosing) 1 each MISCELLANE DAILY PRN PRN Reason: Consult order Phenobarbital (Phenobarbital 15 Mg Tablet) 15 mg PO BID [facility] Stop: 10/25/24 09:01 Phenobarbital (Phenobarbital 15 Mg Tablet) 15 mg PO DAILY [facility] Stop: 10/26/24 09:01 Sodium Chloride (0.9 % Sodium Chloride Flush 3 Ml Syringe) 3 ml IVFLUSH QSHIFT [facility] Last Admin: 10/23/24 08:13 Dose: 3 ml Documented By: JARETT Thiamine HCl (Thiamine Hcl 100 Mg Tablet) 200 mg PO DAILY [facility] Last Admin: 10/23/24 08:12 Dose: 200 mg Documented By: JARETT Labs 10/22/24 06:37 10/23/24 08:18 Labs: Laboratory Results - last 24 hr 10/22/24 10/23/24 12:27 08:18 Anion Gap 10 L Estim Creat Clear Calc 98.4 Estimated GFR > 60 Random Glucose 92 Calcium 8.6 D Total Bilirubin 2.9 H AST 89 H ALT 12 Alkaline Phosphatase 148 H Total Protein 7.3 Albumin 2.6 L Respiratory Panel Muhammad See Note Adenovirus (Rapid PCR) Not Detected B.pert (TEM-PCR) Not Detected B.parapertussis DNA PCR Not Detected C. pneumoniae DNA (PCR) Not Detected Coronavirus OC43 (PCR) Not Detected Coronavirus HKU1 (PCR) Not Detected Coronavirus 229E (PCR) Not Detected Coronavirus NL63 (PCR) Not Detected Human Metapneumovir PCR Not Detected Influenza A (RT-PCR) Not Detected Influenza B (RT-PCR) Not Detected M. pneumoniae (PCR) Not Detected Parainfluenza 1 (PCR) Not Detected Parainfluenza 2 (PCR) Not Detected Parainfluenza 3 (PCR) Not Detected Parainfluenza 4 (PCR) Not Detected RSV (PCR) Not Detected Entero/Rhino (PCR) Not Detected SARS-CoV-2 RNA (RT-PCR) Not Detected Microbiology Microbiology Results: Microbiology 10/21/24 05:39 Blood Culture - Preliminary Blood - Venous No growth after 48 hours. 10/21/24 05:28 Blood Culture - Preliminary Blood - Venous No growth after 48 hours. Assessment and Plan (1) Acute and chronic respiratory failure: Status: Acute (2) Aspiration pneumonia: Status: Acute Assessment and Plan: 54-year-old male with a past medical history of alcohol abuse and dependence and stigmata of chronic liver disease who was brought in by ambulance for what appeared to be intoxication. The patient has been found to have hypoxia requiring 3 L of supplemental oxygen as well as hypotension which has responded to intravenous fluids. He is exhibiting signs of withdrawal and given his hypoxia now will be admitted for further workup and treatment. Acute alcohol withdrawal : moniter ciwa continue phenobarbital. Consider addiction medicine consult, at this time patient does not seem interested and is only requesting food Acute respiratory failure with hypoxia Chest x-ray with some interstitial findings as well as patchy opacities Given his intoxication and prior aspiration Flu/RSV/COVID negative continue with IV antibiotics pulm eval noted -continue oxygen ,vanco+zosyn ,moniter respiratory status closely. chronic liver disease ? unclear etiology( multifactorial -alcohol use , added hepatitis screen, hiv). pancytopenia coagulopathy, ascitis moniter lfts , GI eval. HypoK and HypoMg repleted, continue to monitor mild hypocalemia -calcium levels seems normal when corrected for hypoalbuminemia. Alcoholic liver disease leukopenia / thrombocytopenia / elevated T. bili are secondary to chronic liver disease, not severe sepsis DVT pptx -- mechanical due to thrombocytopenia ongoing alcohol withdrawal complicated by acute resp. failure requiring supplemental O2 with risk factors including alcoholic liver disease / cirrhosis -need oxygen taper,a ntibiotics ,renal function/electrolytes monitering Quality Stroke Does the patient have a stroke diagnosis?: No VTE Prior VTE?: No VTE Risk Level:: Medical - moderate - high VTE Device Contraindication: N/A - Device Ordered VTE Drug Contraindication: Treatment Not Tolerated
[2024-10-23 14:33] LABS: WBC Peritoneal Fluid 0.115 X10*3/uL
[2024-10-23 14:37] LABS: RBC Peritoneal Fluid < 0.002 X10*6/uL
[2024-10-23 15:19] LABS: VBG Base Excess 2.6 mmol/L; VBG HCO3 22 mmol/L (22-26); VBG pCO2 20 mmHg; VBG pH 7.64 (7.32-7.43); VBG pO2 204 mmHg
[2024-10-23 15:22] LABS: Venous Blood Gas Refer to POC result
[2024-10-23 15:41] LABS: Lymphocyte Peritoneal Fl 14 %; Neutrophils Peritoneal Fluid 13 %
[2024-10-23 15:42] LABS: BF Shift QC OK YES; Monocytes Peritoneal Fl 10 %; Other Peritioneal Fl 63 %
--- NOTE | 2024-10-23 15:57 | P.CDIM_ITS ---
PROVIDER RESPONSE TEXT: To clarify, the appropriate diagnosis supported by the clinical indicators: Pancytopenia: pancytopenia possible sec to liver dis QUERY TEXT: PHYSICIAN'S DOCUMENTATION REQUEST Date of Query: 10/23/2024 07:54 AM EST Patient Name: Charbel Delgado Admit Date: 10/21/2024 Dear Astrid Hines MD, A review of the medical record indicates additional documentation may be needed. Please review below and update the documentation accordingly. Clinical Indicators: ED 10/21 - Addendum - Patient has pancytopenia likely from alcohol abuse, coagulopathy of liver diseas e elevated INR. Blood culture done, will give also fluids empiric AB because immunocompromised (pancytopenic). WBC 3.3 PLT 31 L RBC 2.52 Based on the above, could you clarify if agree with the documented diagnosis of Pancytopenia: Pancytopenia suspected, possible, probable, etc. After study pancytopenia is ruled out Other (explain) Clinically unable to determine (explain) Thank you, Rina Gutierrez, CCS, CDIS Use of terms such as suspected, likely, concern for, or probable (associated with a specific diagnosi s that is being evaluated, monitored, or treated as if it exists) are acceptable and can be coded in the inpatient se tting, when documented at the time of discharge. Please use your independent medical judgment in providing your response. THIS QUERY IS PART OF THE PERMANENT MEDICAL RECORD
[2024-10-23] MEDS: PHENobarbitaL 15 MG TABLET PO (20:38)
[2024-10-23] MEDS: vancomycin HCL 1,000 MG in 0.9 % Sodium Chloride 250 ML 270 MG IV (23:47)
[2024-10-24] MEDS: Acetaminophen 325 MG TABLET 650 MG PO (00:51)
[2024-10-24 03:03] VITALS: BP 92/50; PULSE 86; RESP 16; TEMP 37.3; O2SAT 92
[2024-10-24] MEDS: Piperacillin Sodium/Tazobactam 3.375 GM in 0.9 % Sodium Chloride 50 ML IV ×4 (04:01→20:55)
[2024-10-24 05:41] VITALS: BMI 20.6
[2024-10-24 07:12] VITALS: BP 104/59; PULSE 72; RESP 20; TEMP 37.4; O2SAT 96
[2024-10-24 07:39] LABS: Glucose Peritoneal Fluid 106; LDH Peritoneal Fluid 90; Total Protein Peritoneal Fluid 2.5
[2024-10-24 07:50] LABS: Alanine Aminotransferase 12 U/L (0-40); Albumin Level 2.9 g/dL (3.5-5.0); Alkaline Phosphatase 101 U/L (39-117); Anion Gap 10 (12-20); Aspartate Amino Transferase 68 U/L (5-37); Bilirubin Total 2.9 mg/dL (0.0-1.0); Blood Urea Nitrogen 15 mg/dL (9-16); Calcium 9.1 mg/dL (8.4-10.2); Carbon Dioxide 21 mmol/L (22-29); Chloride 107 mmol/L (96-108); Creatinine Clr Calc Pharmacy 81.5; Estimated Glomerular Filt Rate > 60; Glucose Random 89 mg/dL (60-115); Potassium 3.6 mmol/L (3.3-5.1); Sodium 134 mmol/L (135-145); Total Protein 7.1 g/dL (6.5-8.0)
[2024-10-24 08:04] LABS: HIV AB/AG Nonreactive (Nonreactive); HIV Num 1 0.05 S/CO (0.00-0.99)
[2024-10-24 08:12] LABS: HBc Num1 0.18 S/CO (0.00-0.79); HBsAGNum1 0.52 S/CO (0.00-0.99); Hepatitis A Antibody IgM 0.19 Index (0-0.79); Hepatitis B Core Antibody Nonreactive (Nonreactive); Hepatitis B Surface Antigen Negative (Negative); ~HepC Num1 0.28 S/CO (0.00-0.79); ~Hepatitis A Antibody IgM Nonreactive (Nonreactive); ~Hepatitis B Surface Antibody NONREACTIVE (Nonreactive); ~Hepatitis C Antibody Nonreactive (Nonreactive)
[2024-10-24] MEDS: Albumin Human 25 % 100 ML IV ×3 (08:15→21:04)
[2024-10-24] MEDS: Magnesium Oxide 400 MG TABLET PO ×2 (08:16→16:08)
[2024-10-24] MEDS: Omeprazole 20 MG CAPSULE.DR PO ×2 (08:16→16:08)
[2024-10-24] MEDS: Folic Acid 1 MG TABLET PO (08:17)
[2024-10-24] MEDS: PHENobarbitaL 15 MG TABLET PO ×2 (08:17→21:04)
[2024-10-24] MEDS: Thiamine HCL 100 MG TABLET 200 MG PO (08:20)
[2024-10-24] MEDS: 0.9 % Sodium Chloride Flush 3 ML SYRINGE IVFLUSH ×2 (08:21→21:54)
[2024-10-24] MEDS: Furosemide 20 MG/2 ML VIAL IVPUSH (08:21)
[2024-10-24] MEDS: vancomycin HCL 1,000 MG in 0.9 % Sodium Chloride 250 ML 270 MG IV (10:47)
[2024-10-24 11:13] VITALS: BP 94/53; PULSE 80; RESP 20; TEMP 37.2; O2SAT 95
--- NOTE | 2024-10-24 13:46 | PM.GICN ---
History of Present Illness Data of Consult Service Date: 10/24/24 Requesting physician: Astrid Hines Primary Care Provider: None Physician HPI Reason for consult: liver disease 53 years old man with past medical history significant for alcoholic liver cirrhosis, esophageal varices and ongoing alcohol abuse who I am seeing for liver disease evaluation Patient was admitted because of SOB and non productive cough. He denies abdominal pain, chest pain, fever, melena or rectal bleeding. HE had imaging with lung infiltrates and requires Oxygen to maintain sats. He was noted to have ascites and were drained but neg for SBP. He conts to drink large amounts of alcohol daily. Review of Systems Review of Systems: Constitutional : No Weight loss, No Fever, No Chills ENT/Mouth : No sore throat, No Rhinorrhea Eyes: No Swelling, No Redness Cardiovascular : No Chest Pain, No SOB, No Edema Respiratory : No Cough, No Sputum, No Wheezing Gastrointestinal : see HPI Genitourinary : NO Dysuria, No Urinary Frequency, No Hematuria, No Urgency Musculoskeletal : NO joint pain, No Myalgias, No Joint Swelling Skin : No Skin Lesions, No rash Neuro : No Weakness, No Numbness, No Dizziness, No Headache Psych : No Anxiety/Panic, No Depression Heme/Lymph: No Bruising, No Lymphadenopathy Endocrine : No Polyuria, No Polydipsia All other systems reviewed and are negative. [facility] Past Medical History Medical History (Updated 10/23/24 @ 10:01 by Jaxson Fall MD) Aspiration pneumonia Thrombocytopenia Malnutrition CHF (congestive heart failure) Anemia Hypomagnesemia Cirrhosis Thrombocytopenia Alcoholic liver disease Acute on chronic anemia CHF (congestive heart failure) Anemia Pneumonia Alcohol abuse Alcohol withdrawal syndrome Surgical History Surgical History No history of previous surgery Social History Social History Household Members: None Household Members Other:: pt homeless Housing: Homeless Housing Other:: homeless Do you presently have visiting nurse or other home services: No Unable to assess alcohol history related to: Refusing to respond Alcohol intake: current Alcohol intake frequency: 3 or more drinks per day Alcohol type: beer and hard liquor Comment: 1 assist to bathroom Patient Tobacco Use Status: Former Tobacco user Tobacco use type: Cigarette Second Hand Smoke Exposure: No Advance Directives Date on File: 07/13/23 service: No Meds Allergies Allergy/AdvReac Type Severity Reaction Status Date / Time No Known Allergies Allergy Verified 10/20/24 20:50 [No Known Allergies*] Active Medications: Current Medications Acetaminophen (Acetaminophen 325 Mg Tablet) 650 mg PO Q6H PRN PRN Reason: Pain, Mild (Pain Scale 1-3), fever or headache Last Admin: 10/24/24 00:51 Dose: 650 mg Calcium Carbonate (Calcium Carbonate 750 Mg Tab.Chew) 750 mg PO Q4H PRN PRN Reason: Heartburn Fluticasone Propionate (Fluticasone Propionate Nasal 16 Gm [place]) 1 spray NOSTRIL-B DAILY [facility] Last Admin: 10/24/24 12:53 Dose: Not Given Folic Acid (Folic Acid 1 Mg Tablet) 1 mg PO DAILY [facility] Last Admin: 10/24/24 08:17 Dose: 1 mg Furosemide (Furosemide 20 Mg/2 Ml Vial) 20 mg IVPUSH BID@0900,1800 [facility]; Protocol Last Admin: 10/24/24 08:21 Dose: 20 mg Piperacillin Sod/Tazobactam (Sod 3.375 gm/ Sodium Chloride) 50 mls @ 100 mls/hr IV Q6H [facility] Last Infusion: 10/24/24 12:53 Dose: Infused Vancomycin HCl 1,000 mg/ (Sodium Chloride) 270 mls @ 270 mls/hr IV Q12H [facility] Last Infusion: 10/24/24 12:53 Dose: Infused Albumin Human (Kedbumin 25 %) 100 mls @ 100 mls/hr IV Q6H [facility] Stop: 10/25/24 02:59 Last Infusion: 10/24/24 09:51 Dose: Infused Magnesium Hydroxide (Milk Of Magnesia 30 Ml Oral.Susp) 30 ml PO DAILY PRN PRN Reason: Constipation Magnesium Oxide ([facility] 400 Mg Tablet) [facility] Last Admin: 10/24/24 08:16 Dose: 400 mg Melatonin (Melatonin 3 Mg Tablet) 6 mg PO BEDTIME PRN PRN Reason: Insomnia Omeprazole (Omeprazole 20 Mg Capsule.Dr) 20 mg PO BID@0630,1630 [facility] Last Admin: 10/24/24 08:16 Dose: 20 mg Pharmacy Consult (Consult Rx Etoh Phenob Im/Po) 1 each MISCELLANE ONCE PRN; Protocol PRN Reason: Consult order Pharmacy Consult (Consult Rx Vancomycin Dosing) 1 each MISCELLANE DAILY PRN PRN Reason: Consult order Phenobarbital (Phenobarbital 15 Mg Tablet) 15 mg PO BID [facility] Stop: 10/25/24 09:01 Last Admin: 10/24/24 08:17 Dose: 15 mg Phenobarbital (Phenobarbital 15 Mg Tablet) 15 mg PO DAILY [facility] Stop: 10/26/24 09:01 Sodium Chloride (0.9 % Sodium Chloride Flush 3 Ml Syringe) 3 ml IVFLUSH QSHIFT [facility] Last Admin: 10/24/24 08:21 Dose: 3 ml Thiamine HCl (Thiamine Hcl 100 Mg Tablet) 200 mg PO DAILY [facility] Last Admin: 10/24/24 08:20 Dose: 200 mg Physical Exam Vital Signs: Vital Signs: Last Vital Signs Temp 99.0 F 10/24/24 11:13 Pulse 80 10/24/24 11:13 Resp 20 10/24/24 11:13 BP 94/53 L 10/24/24 11:13 Pulse Ox 95 10/24/24 11:13 O2 Del Method Nasal Cannula 10/24/24 11:13 O2 Flow Rate 5 10/24/24 11:13 BMI result Body Mass Index 20.6 EXAM: GENERAL: The patient is dishevelled, mild jaundice VITAL SIGNS:see workflow HEENT: mild icteric sclerae, PERRLA, EOMI. Oropharynx clear. Moist mucous membranes. Conjunctivae appear well perfused. No thyroid mass. CHEST: Chest wall is nontender. HEART: Regular rate and rhythm without murmurs. LUNGS: Clear to auscultation bilaterally. ABDOMEN: Soft, positive bowel sounds, nontender, no organomegaly.no flank tenderness SKIN: No rash, no excessive bruising, petechiae, or purpura. NEUROLOGIC: Cranial nerves II-XII intact without motor/sensory deficit. Psych: normal affect Results Labs 10/22/24 06:37 10/24/24 07:17 Labs: BMP 10/24/24 07:17 Sodium 134 L Potassium 3.6 Chloride 107 Carbon Dioxide 21 L BUN 15 Creatinine 0.84 Calcium 9.1 Liver Function 10/24/24 Range/Units 07:17 Total Bilirubin 2.9 H (0.0-1.0) mg/dL AST 68 H (5-37) U/L ALT 12 (0-40) U/L Alkaline Phosphatase 101 (39-117) U/L Albumin 2.9 L (3.5-5.0) g/dL Microbiology Microbiology Results: Microbiology 10/23/24 13:45 Abdominal Fluid Gram Stain - Final 10/23/24 13:45 Abdominal Fluid Routine Culture - Preliminary No growth to date. 10/23/24 13:45 Abdominal Fluid Anaerobic Culture - Preliminary No growth to date. 10/21/24 05:39 Blood - Venous Blood Culture - Preliminary No growth after 48 hours. 10/21/24 05:28 Blood - Venous Blood Culture - Preliminary No growth after [address] scan - chest: Attestation: I personally reviewed and interpreted this imaging study as follows: (multifocal pneumonia with left sided pl effusion and small ascites) Assessment and Plan (1) Acute and chronic respiratory failure: Qualifiers: Respiratory failure complication: hypoxia Qualified Code(s): J96.21 - Acute and chronic respiratory failure with hypoxia Status: Acute Plan 1/ Acute hypoxic respiratory failure with pleural effusion, suspect this is CAP, higher risk due to his alcohol related cirrhosis 2/ Small Ascites, no SBP 2/2 to liver disease PLAN: 1/ Recommend cont treatment for pneumonia as doing 2/ if BP allows then can use low dose aldactone, and lasix 3/ multivitamins, high protein diet 4/ US liver to r/o HCC 5/ chronic anemia, check iron, b12 and folate Procedures Date of Service Date of Service: 10/24/24
--- NOTE | 2024-10-24 13:49 | P.PNIM_ITS ---
Subjective Subjective Date of Service: 10/24/24 Interval History: pneumonia , alcoholic liver dis. Review of Systems sob somewhat improving denies any chest pain or abd pain or fever. Physical Exam 2 Vital Signs: Vital Signs: Last Vital Signs Temp 99.0 F 10/24/24 11:13 Pulse 80 10/24/24 11:13 Resp 20 10/24/24 11:13 BP 94/53 L 10/24/24 11:13 Pulse Ox 95 10/24/24 11:13 O2 Del Method Nasal Cannula 10/24/24 11:13 O2 Flow Rate 5 10/24/24 11:13 BMI result Body Mass Index 20.6 Objective Data Active Medications Acetaminophen (Acetaminophen 325 Mg Tablet) 650 mg PO Q6H PRN PRN Reason: Pain, Mild (Pain Scale 1-3), fever or headache Last Admin: 10/24/24 00:51 Dose: 650 mg Documented By: PARAMJIT Calcium Carbonate (Calcium Carbonate 750 Mg Tab.Chew) 750 mg PO Q4H PRN PRN Reason: Heartburn Fluticasone Propionate (Fluticasone Propionate Nasal 16 Gm [place]) 1 spray NOSTRIL-B DAILY [facility] Last Admin: 10/24/24 12:53 Dose: Not Given Documented By: MARTHA Non-Admin Reason: Med Not Available Folic Acid (Folic Acid 1 Mg Tablet) 1 mg PO DAILY [facility] Last Admin: 10/24/24 08:17 Dose: 1 mg Documented By: MARTHA Furosemide (Furosemide 20 Mg/2 Ml Vial) 20 mg IVPUSH BID@0900,1800 [facility]; Protocol Last Admin: 10/24/24 08:21 Dose: 20 mg Documented By: MARTHA Piperacillin Sod/Tazobactam (Sod 3.375 gm/ Sodium Chloride) 50 mls @ 100 mls/hr IV Q6H [facility] Last Infusion: 10/24/24 12:53 Dose: Infused Documented By: MARTHA Vancomycin HCl 1,000 mg/ (Sodium Chloride) 270 mls @ 270 mls/hr IV Q12H [facility] Last Infusion: 10/24/24 12:53 Dose: Infused Documented By: MARTHA Albumin Human (Kedbumin 25 %) 100 mls @ 100 mls/hr IV Q6H [facility] Stop: 10/25/24 02:59 Last Infusion: 10/24/24 09:51 Dose: Infused Documented By: MARTHA Magnesium Hydroxide (Milk Of Magnesia 30 Ml Oral.Susp) 30 ml PO DAILY PRN PRN Reason: Constipation Magnesium Oxide (Magnesium Oxide 400 Mg Tablet) 400 mg PO BIDPC [facility] Last Admin: 10/24/24 08:16 Dose: 400 mg Documented By: MARTHA Melatonin (Melatonin 3 Mg Tablet) 6 mg PO BEDTIME PRN PRN Reason: Insomnia Omeprazole (Omeprazole 20 Mg Capsule.Dr) 20 mg PO BID@0630,1630 [facility] Last Admin: 10/24/24 08:16 Dose: 20 mg Documented By: MARTHA Pharmacy Consult (Consult Rx Etoh Phenob Im/Po) 1 each MISCELLANE ONCE PRN; Protocol PRN Reason: Consult order Pharmacy Consult (Consult Rx Vancomycin Dosing) 1 each MISCELLANE DAILY PRN PRN Reason: Consult order Phenobarbital (Phenobarbital 15 Mg Tablet) 15 mg PO BID [facility] Stop: 10/25/24 09:01 Last Admin: 10/24/24 08:17 Dose: 15 mg Documented By: MARTHA Phenobarbital (Phenobarbital 15 Mg Tablet) 15 mg PO DAILY [facility] Stop: 10/26/24 09:01 Sodium Chloride (0.9 % Sodium Chloride Flush 3 Ml Syringe) 3 ml IVFLUSH QSHIFT [facility] Last Admin: 10/24/24 08:21 Dose: 3 ml Documented By: MARTHA Thiamine HCl (Thiamine Hcl 100 Mg Tablet) 200 mg PO DAILY [facility] Last Admin: 10/24/24 08:20 Dose: 200 mg Documented By: MARTHA Labs 10/22/24 06:37 10/24/24 07:17 Labs: Laboratory Results - last 24 hr 10/23/24 10/23/24 10/23/24 13:45 14:49 14:56 Hold Purple Top VBG pH 7.64 H* VBG pCO2 20 VBG pO2 204 VBG HCO3 22 VBG O2 Saturation 100.0 VBG Base Excess 2.6 Anion Gap Estim Creat Clear Calc Estimated GFR Random Glucose Calcium Total Bilirubin AST ALT Alkaline Phosphatase Total Protein Albumin Peritoneal WBC 0.115 Peritoneal RBC < 0.002 Periton Neutrophils 13 Periton Lymphocytes 14 Peritoneal Monocytes 10 Peritoneal Other Cells 63 Peritoneal Tot Protein 2.5 Peritoneal LDH 90 Peritoneal Glucose 106 Hepatitis A IgM Ab Hep Bs Antigen Hep Bs Antibody Hep B Core Total Ab Hepatitis C Ab (EIA) HIV 1&2 Ab/P24 Ag 4thGn Nonreactive 10/24/24 07:17 Hold Purple Top SEE NOTE VBG pH VBG pCO2 VBG pO2 VBG HCO3 VBG O2 Saturation VBG Base Excess Anion Gap 10 L Estim Creat Clear Calc 81.5 Estimated GFR > 60 Random Glucose 89 Calcium 9.1 Total Bilirubin 2.9 H AST 68 H ALT 12 Alkaline Phosphatase 101 Total Protein 7.1 Albumin 2.9 L Peritoneal WBC Peritoneal RBC Periton Neutrophils Periton Lymphocytes Peritoneal Monocytes Peritoneal Other Cells Peritoneal Tot Protein Peritoneal LDH Peritoneal Glucose Hepatitis A IgM Ab Nonreactive Hep Bs Antigen Negative Hep Bs Antibody NONREACTIVE Hep B Core Total Ab Nonreactive Hepatitis C Ab (EIA) Nonreactive HIV 1&2 Ab/P24 Ag 4thGn Microbiology Microbiology Results: Microbiology 10/23/24 13:45 Gram Stain - Final Abdominal Fluid Routine Culture - Preliminary No growth to date. Anaerobic Culture - Preliminary No growth to date. Assessment and Plan (1) Acute and chronic respiratory failure: Status: Acute (2) Aspiration pneumonia: Status: Acute Assessment and Plan: 54-year-old male with a past medical history of alcohol abuse and dependence and stigmata of chronic liver disease who was brought in by ambulance for what appeared to be intoxication. The patient has been found to have hypoxia requiring 3 L of supplemental oxygen as well as hypotension which has responded to intravenous fluids. He is exhibiting signs of withdrawal and given his hypoxia now will be admitted for further workup and treatment. Acute alcohol withdrawal : moniter ciwa continue phenobarbital. Consider addiction medicine consult, at this time patient does not seem interested and is only requesting food Acute respiratory failure with hypoxia Chest x-ray with some interstitial findings as well as patchy opacities Given his intoxication and prior aspiration Flu/RSV/COVID negative plan hypoxia improvingcontinue with IV antibiotics,vanco+zosyn ,moniter respiratory status closely, taper oxygen. ALcoholic liver disease ? unclear etiology( multifactorial -alcohol use , added hepatitis screen, hiv). pancytopenia coagulopathy, ascitis moniter lfts GI eval-s/p paracentesis -less likely sbp,blood /ascitis culture -prelim negative had paracentesis yesterday-has boderline bp ,added albumin and midodrine , hold lasix. HypoK and HypoMg. repleted, continue to monitor hyponatremia -likely dec pointake /liver dis continue to moniter. mild hypocalemia -calcium levels seems normal when corrected for hypoalbuminemia, resolved. Alcoholic liver disease leukopenia / thrombocytopenia / elevated T. bili are secondary to chronic liver disease, not severe sepsis DVT pptx -- mechanical due to thrombocytopenia ongoing alcohol withdrawal complicated by acute resp. failure requiring supplemental O2 with risk factors including alcoholic liver disease / cirrhosis -need oxygen taper,a ntibiotics ,renal function/electrolytes monitering Quality Stroke Does the patient have a stroke diagnosis?: No VTE Prior VTE?: No VTE Risk Level:: Medical - moderate - high VTE Device Contraindication: N/A - Device Ordered VTE Drug Contraindication: Treatment Not Tolerated
[2024-10-24] MEDS: Midodrine HCl 2.5 MG TABLET PO ×2 (14:41→21:04)
[2024-10-24 15:33] VITALS: BP 90/58; PULSE 92; RESP 19; TEMP 38; O2SAT 93
--- NOTE | 2024-10-24 15:48 | P.CDIM_ITS ---
PROVIDER RESPONSE TEXT: To clarify, the appropriate diagnosis supported by the clinical indicators: Other (explain): no chf QUERY TEXT: PHYSICIAN'S DOCUMENTATION REQUEST Date of Query: 10/24/2024 09:39 AM EST Patient Name: Charbel Delgado Admit Date: 10/21/2024 Dear Astrid Hines MD, A review of the medical record indicates additional documentation may be needed. Please review below and update the documentation accordingly. Clinical Indicators: PMH: Congestive heart failure BNP 157 H IV Lasix Echo performed. Please provide further specificity regarding the most likely type and acuity of CHF that is documente d within the medical record: Systolic Please specify if Acute, Chronic, or Acute on chronic, or Unable to determine Diastolic Please specify if Acute, Chronic, or Acute on chronic, or Unable to determine Combined Systolic/Diastolic Please specify if Acute, Chronic, or Acute on chronic, or Unable to determine Other (explain) Clinically unable to determine (explain) Thank you, Rina Gutierrez, CCS, CDIS Use of terms such as suspected, likely, concern for, or probable (associated with a specific diagnosi s that is being evaluated, monitored, or treated as if it exists) are acceptable and can be coded in the inpatient se tting, when documented at the time of discharge. Please use your independent medical judgment in providing your response. THIS QUERY IS PART OF THE PERMANENT MEDICAL RECORD
[2024-10-24 16:53] LABS: IgA 616 mg/dL (47-310); IgG 3147 mg/dL (600-1640); IgM 135 mg/dL (50-300)
[2024-10-24] MEDS: 0.9 % Sodium Chloride 250 ML IVCONT (17:36)
[2024-10-24 19:54] VITALS: BP 95/63; PULSE 96; RESP 20; TEMP 38; O2SAT 93
[2024-10-24 21:04] VITALS: BP 101/59
[2024-10-24 21:33] LABS: Vancomycin Random 23.4 mcg/mL (15-20)
--- NOTE | 2024-10-24 21:43 | HE.PHANOTE ---
Vancomycin Vancomycin trough = 23.4. Held 10/24/24 @2300 dose and adjusted dosing to 1250 mg q24h for predicted trough of 503. Creatinine increased from 0.73 on 10/23 to 0.84 today, continue to monitor. Random level before new dosing starts on 10/25 @0700 to make sure trough is back within acceptable range .
[2024-10-25] VITALS (9 sets, daily range): BP systolic 85–107; BP diastolic 45–60; PULSE 75–94; RESP 16–20; TEMP 36.8–38; O2SAT 87–95; BMI 20.4
[2024-10-25] MEDS: Acetaminophen 325 MG TABLET 650 MG PO (00:41)
[2024-10-25] MEDS: Piperacillin Sodium/Tazobactam 3.375 GM in 0.9 % Sodium Chloride 50 ML IV ×4 (02:07→21:14)
[2024-10-25] MEDS: Albumin Human 25 % 100 ML IV ×3 (02:42→19:46)
[2024-10-25] MEDS: Omeprazole 20 MG CAPSULE.DR PO ×2 (06:08→15:12)
[2024-10-25 07:13] LABS: Vancomycin Random 13.7 mcg/mL (15-20)
[2024-10-25 07:14] LABS: Creatinine Clr Calc Pharmacy 58.4; Estimated Glomerular Filt Rate > 60
[2024-10-25 07:16] LABS: Anion Gap 14 (12-20); Blood Urea Nitrogen 21 mg/dL (9-16); Calcium 8.7 mg/dL (8.4-10.2); Carbon Dioxide 18 mmol/L (22-29); Chloride 106 mmol/L (96-108); Creatinine Clr Calc Pharmacy 60.5; Estimated Glomerular Filt Rate > 60; Glucose Random 106 mg/dL (60-115); Potassium 4.5 mmol/L (3.3-5.1); Sodium 133 mmol/L (135-145)
--- NOTE | 2024-10-25 07:25 | HE.PHANOTE ---
Re: Yasmino Renal function significantly declining. Random trough cam back at 13.7. Dose has been reduced to 1000mg q24h with predicted AUC 442, predicted trough 11.8. Next trough 10/26 @ 0700.
[2024-10-25] MEDS: Midodrine HCl 2.5 MG TABLET PO (08:05)
[2024-10-25] MEDS: Folic Acid 1 MG TABLET PO (08:05)
[2024-10-25] MEDS: Magnesium Oxide 400 MG TABLET PO ×2 (08:05→16:00)
[2024-10-25] MEDS: Thiamine HCL 100 MG TABLET 200 MG PO (08:05)
[2024-10-25] MEDS: PHENobarbitaL 15 MG TABLET PO ×2 (08:05→21:14)
[2024-10-25] MEDS: 0.9 % Sodium Chloride Flush 3 ML SYRINGE IVFLUSH ×3 (08:06→21:15)
[2024-10-25] MEDS: Fluticasone Propionate Nasal 16 GM SPRAY 1 SPRAY NOSTRIL-B (08:11)
[2024-10-25] MEDS: Albumin Human 25 % 100 ML 133.33 ML IV ×4 (08:45→17:11)
--- NOTE | 2024-10-25 08:51 | MHC.CM.PN ---
EMR REVIEWED, PT W/ETOH WITHDRAWAL/PNA, PT REMAINS ON RIDDHI ABX, PHENOBARB PROTOCOL AND O2 REQ DECREASING ON 5L O2, NO PLAN FOR DC AT THIS TIME, PT WILL LIKELY REMAIN INPT OVER W/E, ANTIC PT WILL NEED STR VS RETURN TO STREET, CM WILL CONT TO FOLLOW DC NEEDS.
--- NOTE | 2024-10-25 09:13 | P.PNPL_ITS ---
Subjective Subjective Date of Service: 10/25/24 Interval history: The patient was seen on exam. Feels a little better. Still on the oxygen. Was able to wean down from 7 L now to 5 L. he still in bed. Would benefit from deep breathing exercises and being out of bed to recliner to better expand the lungs and improve gas exchange. Objective Data Labs 10/22/24 06:37 10/25/24 06:43 Labs: Laboratory Results - last 24 hr 10/23/24 10/24/24 10/25/24 10:50 20:49 06:43 Sodium 133 L Potassium 4.5 D Chloride 106 Carbon Dioxide 18 L Anion Gap 14 BUN 21 H Creatinine 1.16 Estim Creat Clear Calc Estimated GFR Random Glucose Calcium Random Vancomycin 23.4 H IgG Total 3147 H IgA Total 616 H IgM 135 10/25/24 10/25/24 10/25/24 06:43 06:43 06:43 Sodium Potassium Chloride Carbon Dioxide Anion Gap BUN Creatinine 1.12 Estim Creat Clear Calc 58.4 60.5 Estimated GFR > 60 > 60 Random Glucose 106 Calcium 8.7 Random Vancomycin 13.7 L IgG Total IgA Total IgM Microbiology Microbiology Results: Microbiology 10/23/24 13:45 Abdominal Fluid Gram Stain - Final 10/23/24 13:45 Abdominal Fluid Routine Culture - Final No growth after 2 days 10/23/24 13:45 Abdominal Fluid Anaerobic Culture - Preliminary No growth to date. 10/21/24 05:39 Blood - Venous Blood Culture - Preliminary No growth after 48 hours. 10/21/24 05:28 Blood - Venous Blood Culture - Preliminary No growth after 48 hours. Review of Systems Constitutional: Reports chills, Reports fatigue and Denies fever(s) Eyes: Reports no additional eye complaints Reports system reviewed and no additional complaints, except as documented Cardiovascular: Denies chest pain and Reports dyspnea Respiratory: Reports cough, Reports dyspnea and Denies wheezing Gastrointestinal: Reports as per HPI Musculoskeletal: Reports no additional musculoskeletal complaints Reports tremor(s) Endocrine: Reports fatigue Hematologic/Lymphatic: Reports no additional hematologic/lymphatic complaints Allergic/Immunologic: Denies wheezing Physical Exam 2 Vital Signs: Vital Signs: Last Vital Signs Temp 98.8 F 10/25/24 07:05 Pulse 75 10/25/24 07:05 Resp 16 10/25/24 07:05 BP 98/58 L 10/25/24 07:05 Pulse Ox 95 10/25/24 07:05 O2 Del Method Nasal Cannula 10/25/24 07:05 O2 Flow Rate 5 10/25/24 07:05 BMI result Body Mass Index 20.4 Appearance: Alert.? Oriented X3.? cvs: [id number], [id number] , no murmur res: air entry fair ,diminshed at bases. abd: no rebound or guarding ,nt, bs present. ext pulses present , no cyanosis ,1+edema . neuro: axo3 , nonfocal. Procedures Date of Service Date of Service: 10/25/24 Assessment and Plan Assessment and plan (1) Acute and chronic respiratory failure: Status: Acute (2) Aspiration pneumonia: Status: Acute Plan Continue broad-spectrum antibiotics for total of 8 days Out of bed to recliner to be well-expanded lungs better Incentive spirometer while in bed Repeat chest x-ray Time Spent With Patient Time: Total time managing care of this patient today ____ minutes. Progress Note: Quality Stroke Does the patient have a stroke diagnosis?: No
[2024-10-25 12:06] LABS: MRSA Nasal PCR NEGATIVE (Negative); SA Nasal PCR POSITIVE (Negative)
[2024-10-25] MEDS: Midodrine HCl 5 MG TABLET PO ×2 (15:12→21:14)
--- NOTE | 2024-10-25 15:23 | HO.PM.IMPN ---
Subjective Subjective Date of Service: 10/25/24 Interval History: pneumonia , alcoholic liver dis. Review of Systems sob somewhat improving denies any cough or chest pain or abd pain Physical Exam Vital Signs: Vital Signs: Last Vital Signs Temp 98.3 F 10/25/24 11:07 Pulse 90 10/25/24 11:07 Resp 18 10/25/24 11:07 BP 107/57 L 10/25/24 11:07 Pulse Ox 90 L 10/25/24 11:07 O2 Del Method Nasal Cannula 10/25/24 11:07 O2 Flow Rate 5 10/25/24 11:07 BMI result Body Mass Index 20.4 Appearance: Alert.? Oriented X3.? cvs: rrr, [id number]. res: air entry fair ,diminshed at bases. abd: no rebound or guarding ,nt, bs present. ext pulses present , no cyanosis ,1+edema . neuro: axo3 , nonfocal. Objective Data Active Medications Acetaminophen (Acetaminophen 325 Mg Tablet) 650 mg PO Q6H PRN PRN Reason: Pain, Mild (Pain Scale 1-3), fever or headache Last Admin: 10/25/24 00:41 Dose: 650 mg Documented By: THUY Calcium Carbonate (Calcium Carbonate 750 Mg Tab.Chew) 750 mg PO Q4H PRN PRN Reason: Heartburn Fluticasone Propionate (Fluticasone Propionate Nasal 16 Gm [place]) 1 spray NOSTRIL-B DAILY [facility] Last Admin: 10/25/24 08:11 Dose: 1 spray Documented By: MARTHA Folic Acid (Folic Acid 1 Mg Tablet) 1 mg PO DAILY [facility] Last Admin: 10/25/24 08:05 Dose: 1 mg Documented By: MARTHA Piperacillin Sod/Tazobactam (Sod 3.375 gm/ Sodium Chloride) 50 mls @ 100 mls/hr IV Q6H [facility] Last Admin: 10/25/24 15:13 Dose: 100 mls/hr Documented By: MAVERICK Vancomycin HCl 1,000 mg/ (Sodium Chloride) 270 mls @ 270 mls/hr IV Q24H [facility] Albumin Human (Kedbumin 25 %) 100 mls @ 133.333 mls/hr IV Q1H [facility] Stop: 10/25/24 17:14 Magnesium Hydroxide (Milk Of Magnesia 30 Ml Oral.Susp) 30 ml PO DAILY PRN PRN Reason: Constipation Magnesium Oxide (Magnesium Oxide 400 Mg Tablet) 400 mg PO BIDPC [facility] Last Admin: 10/25/24 08:05 Dose: 400 mg Documented By: MARTHA Melatonin (Melatonin 3 Mg Tablet) 6 mg PO BEDTIME PRN PRN Reason: Insomnia Midodrine (Midodrine Hcl 5 Mg Tablet) 5 mg PO TID [facility] Last Admin: 10/25/24 15:12 Dose: 5 mg Documented By: MAVERICK Omeprazole (Omeprazole 20 Mg Capsule.Dr) 20 mg PO BID@0630,1630 [facility] Last Admin: 10/25/24 15:12 Dose: 20 mg Documented By: MAVERICK Pharmacy Consult (Consult Rx Etoh Phenob Im/Po) 1 each MISCELLANE ONCE PRN; Protocol PRN Reason: Consult order Pharmacy Consult (Consult Rx Vancomycin Dosing) 1 each MISCELLANE DAILY PRN PRN Reason: Consult order Phenobarbital (Phenobarbital 15 Mg Tablet) 15 mg PO DAILY [facility] Stop: 10/26/24 09:01 Sodium Chloride (0.9 % Sodium Chloride Flush 3 Ml Syringe) [facility] Last Admin: 10/25/24 15:12 Dose: 3 ml Documented By: MAVERICK Thiamine HCl (Thiamine Hcl 100 Mg Tablet) 200 mg PO DAILY [facility] Last Admin: 10/25/24 08:05 Dose: 200 mg Documented By: MARTHA Labs 10/22/24 06:37 10/25/24 06:43 Labs: Laboratory Results - last 24 hr 10/23/24 10/24/24 10/25/24 10:50 20:49 06:43 Anion Gap 14 Estim Creat Clear Calc 58.4 Estimated GFR Random Glucose Calcium Nasal Screen MRSA (PCR) Nasal S. aureus Screen Nasal MRSA/S.aureus Interp Random Vancomycin 23.4 H IgG Total 3147 H IgA Total 616 H IgM 135 10/25/24 10/25/24 10/25/24 06:43 06:43 09:51 Anion Gap Estim Creat Clear Calc 60.5 Estimated GFR > 60 > 60 Random Glucose 106 Calcium 8.7 Nasal Screen MRSA (PCR) NEGATIVE Nasal S. aureus Screen POSITIVE A Nasal MRSA/S.aureus Interp SEE NOTE Random Vancomycin 13.7 L IgG Total IgA Total IgM Microbiology Microbiology Results: Microbiology 10/23/24 13:45 Gram Stain - Final Abdominal Fluid Routine Culture - Final No growth after 2 days Anaerobic Culture - Preliminary No growth to date. Assessment and Plan (1) Acute and chronic respiratory failure: Status: Acute (2) Aspiration pneumonia: Status: Acute Assessment and Plan: 54-year-old male with a past medical history of alcohol abuse and dependence and stigmata of chronic liver disease who was brought in by ambulance for what appeared to be intoxication. The patient has been found to have hypoxia requiring 3 L of supplemental oxygen as well as hypotension which has responded to intravenous fluids. He is exhibiting signs of withdrawal and given his hypoxia now will be admitted for further workup and treatment. Acute alcohol withdrawal : moniter ciwa continue phenobarbital. addiction consult. Acute respiratory failure with hypoxia Chest x-ray with some interstitial findings as well as patchy opacities Given his intoxication and prior aspiration Flu/RSV/COVID negative hypoxia improving cxr-pendin plan vanco trough last night was 23 , today 13.7 continue with IV antibiotics,vanco+zosyn ,moniter respiratory status closely, taper oxygen. ALcoholic liver disease ? unclear etiology( multifactorial -alcohol use , added hepatitis screen, hiv). pancytopenia coagulopathy, ascitis moniter lfts GI eval-s/p paracentesis -less likely sbp,blood /ascitis culture -prelim negative had paracentesis-2.7 liter fluid removed. continue albumin and midodrine , hold lasix. HypoK and HypoMg. repleted, continue to monitor hyponatremia -likely dec pointake /liver dis continue to moniter. mild hypocalemia -calcium levels seems normal when corrected for hypoalbuminemia, resolved. Alcoholic liver disease leukopenia / thrombocytopenia / elevated T. bili are secondary to chronic liver disease, not severe sepsis DVT pptx -- mechanical due to thrombocytopenia ongoing alcohol withdrawal complicated by acute resp. failure requiring supplemental O2 with risk factors including alcoholic liver disease / cirrhosis -need oxygen taper,a ntibiotics ,renal function/electrolytes monitering Quality Stroke Does the patient have a stroke diagnosis?: No VTE Prior VTE?: No VTE Risk Level:: Medical - moderate - high VTE Device Contraindication: N/A - Device Ordered VTE Drug Contraindication: Treatment Not Tolerated
--- NOTE | 2024-10-25 16:08 | P.CONNP_ITS ---
History of Present Illness Reason for Consult Consult date: 10/25/24 Chief Complaint Chief complaint: HYPOXIA History of Present Illness Narrative: 54 y/o old male with a PMH of alcoholic cirrhosis, homelessness- states he lives behind a liquor store and only medical care is through ED visits for periodic intoxication, does not have a PCP or receive regular medical care. presented 10/20 with alcohol intoxication via EMS. Nephrology consulted for RAVI. creatinine 0.72-0.86 since admission, 10/25 creatinine bumped to 1.12 patient has been receiving vancomycin but levels remain low (10/25 level 13.7) for respiratory failure chest xray showing insterstitial findings and patchy opacities (hx of aspiration with intoxication). previous abdominal CT in Aug 2023 suggesting cirrhosis, kidneys/ureters unremarkable. platelet counts low, most recent 34, chronic anemia, bilirubin 2.9. patient received paracentesis and removed 2.7L fluid, ascites culture pending; receiving midodrine 5mg PO TID and IV albumin patient states he drinks 2-3 beers and half a pint of vodka daily. states he has been drinking this amount for many years. Denies chest pain, dizziness, shortness of breath Denies abdominal pain, flank pain, difficulty urinating Review of Systems Constitutional: Denies fatigue, Denies headache(s) and Denies malaise Denies dizziness and Denies headache(s) Cardiovascular: Denies chest pain, Denies leg edema, Denies lightheadedness and Denies dyspnea Respiratory: Denies cough and Denies dyspnea Gastrointestinal: Denies abdominal pain, Denies constipation, Denies diarrhea, Denies nausea and Denies vomiting Genitourinary: Denies hematuria, Denies oliguria, Denies dysuria and Denies flank pain Musculoskeletal: Denies back pain and Denies arthralgias Skin/Breast: Denies rash Denies dizziness and Denies headache(s) Endocrine: Denies fatigue [facility] Past Medical History Medical History (Updated 10/25/24 @ 16:23 by Ana Valenzuela DNP, [employer]) Alcoholic liver disease Aspiration pneumonia Thrombocytopenia Malnutrition CHF (congestive heart failure) Anemia Hypomagnesemia Cirrhosis Thrombocytopenia Acute on chronic anemia CHF (congestive heart failure) Anemia Pneumonia Alcohol abuse Alcohol withdrawal syndrome Surgical History Surgical History No history of previous surgery Social History Social History Household Members: None Household Members Other:: pt homeless Housing: Homeless Housing Other:: homeless Do you presently have visiting nurse or other home services: No Unable to assess alcohol history related to: Refusing to respond Alcohol intake: current Alcohol intake frequency: 3 or more drinks per day Alcohol type: beer and hard liquor Comment: 1 assist to bathroom Patient Tobacco Use Status: Former Tobacco user Tobacco use type: Cigarette Second Hand Smoke Exposure: No Advance Directives Date on File: 07/13/23 service: No Meds Allergies Allergy/AdvReac Type Severity Reaction Status Date / Time No Known Allergies Allergy Verified 10/20/24 20:50 [No Known Allergies*] Active Medications: Current Medications Acetaminophen (Acetaminophen 325 Mg Tablet) 650 mg PO Q6H PRN PRN Reason: Pain, Mild (Pain Scale 1-3), fever or headache Last Admin: 10/25/24 00:41 Dose: 650 mg Calcium Carbonate (Calcium Carbonate 750 Mg Tab.Chew) 750 mg PO Q4H PRN PRN Reason: Heartburn Fluticasone Propionate (Fluticasone Propionate Nasal 16 Gm [place]) 1 spray NOSTRIL-B DAILY [facility] Last Admin: 10/25/24 08:11 Dose: 1 spray Folic Acid (Folic Acid 1 Mg Tablet) 1 mg PO DAILY [facility] Last Admin: 10/25/24 08:05 Dose: 1 mg Piperacillin Sod/Tazobactam (Sod 3.375 gm/ Sodium Chloride) 50 mls @ 100 mls/hr IV Q6H [facility] Last Infusion: 10/25/24 15:50 Dose: Infused Vancomycin HCl 1,000 mg/ (Sodium Chloride) 270 mls @ 270 mls/hr IV Q24H [facility] Albumin Human (Kedbumin 25 %) 100 mls @ 133.333 mls/hr IV Q1H [facility] Stop: 10/25/24 17:14 Last Admin: 10/25/24 16:00 Dose: 133.33 mls/hr Magnesium Hydroxide (Milk Of Magnesia 30 Ml Oral.Susp) 30 ml PO DAILY PRN PRN Reason: Constipation Magnesium Oxide (Magnesium Oxide 400 Mg Tablet) 400 mg PO BIDPC [facility] Last Admin: 10/25/24 16:00 Dose: 400 mg Melatonin (Melatonin 3 Mg Tablet) 6 mg PO BEDTIME PRN PRN Reason: Insomnia Midodrine (Midodrine Hcl 5 Mg Tablet) 5 mg PO TID [facility] Last Admin: 10/25/24 15:12 Dose: 5 mg Omeprazole (Omeprazole 20 Mg Capsule.Dr) 20 mg PO BID@0630,1630 [facility] Last Admin: 10/25/24 15:12 Dose: 20 mg Pharmacy Consult (Consult Rx Etoh Phenob Im/Po) 1 each MISCELLANE ONCE PRN; Protocol PRN Reason: Consult order Pharmacy Consult (Consult Rx Vancomycin Dosing) 1 each MISCELLANE DAILY PRN PRN Reason: Consult order Phenobarbital (Phenobarbital 15 Mg Tablet) 15 mg PO DAILY [facility] Stop: 10/26/24 09:01 Sodium Chloride (0.9 % Sodium Chloride Flush 3 Ml Syringe) 3 ml IVFLUSH QSHIFT [facility] Last Admin: 10/25/24 15:12 Dose: 3 ml Thiamine HCl (Thiamine Hcl 100 Mg Tablet) 200 mg PO DAILY [facility] Last Admin: 10/25/24 08:05 Dose: 200 mg Physical Exam Vital Signs: Last Vital Signs Temp 98.3 F 10/25/24 11:07 Pulse 90 10/25/24 11:07 Resp 18 10/25/24 11:07 BP 107/57 L 10/25/24 11:07 Pulse Ox 90 L 10/25/24 11:07 O2 Del Method Nasal Cannula 10/25/24 11:07 O2 Flow Rate 5 10/25/24 11:07 BMI result Body Mass Index 20.4 Const General: no acute distress, alert and awake Resp Effort & Inspection: normal respiratory effort and able to speak in complete sentences Auscultation: clear to auscultation bilaterally Cardio Rate: regular rate Rhythm: regular rhythm Heart sounds: S1 normal heart sound present and S2 normal heart sound present GI Inspection: Yes distended (mild distension; soft/nontender ) Palpation (GI): Soft to palpation and nontender General: Yes no CVA tenderness Back/Spine/Pelvis Back: no CVA tenderness Skin Lesions: no lesions Rashes: no rashes Extrem General: No edema Results Lab Results 10/22/24 06:37 10/25/24 06:43 Lab results: Chemistry 10/23/24 10/24/24 10/25/24 08:18 07:17 06:43 Sodium 134 L 134 L 133 L Potassium 3.8 3.6 4.5 D Carbon Dioxide 22 21 L 18 L BUN 10 15 21 H Creatinine 0.73 0.84 1.16 Calcium 8.6 D 9.1 10/25/24 06:43 Sodium Potassium Carbon Dioxide BUN Creatinine 1.12 Calcium 8.7 Assessment and Plan (1) RAVI (acute kidney injury): Status: Acute (2) Alcohol use disorder: Status: Acute (3) Alcoholic liver disease: Status: Acute Plan RAVI likekely hemodynamic RAVI from fluctuating blood pressures/hypoperfusion from liver disease New if creatinine continues to rise, should administer albumin 25gm IV q6h for three days avoid nephrotoxins monitor I&O closely, regular blood pressure checks continue supportive care Will continue to follow Discussed with Dr Frederick Gay Date of Service Date of Service: 10/25/24
[2024-10-25] MEDS: vancomycin HCL 1,000 MG in 0.9 % Sodium Chloride 250 ML 270 MG IV (22:49)
[2024-10-26] MEDS: Piperacillin Sodium/Tazobactam 3.375 GM in 0.9 % Sodium Chloride 50 ML IV ×4 (02:58→21:02)
[2024-10-26 03:18] VITALS: BP 93/51; PULSE 88; RESP 20; TEMP 37.4; O2SAT 93
[2024-10-26] MEDS: Omeprazole 20 MG CAPSULE.DR PO ×2 (05:56→16:36)
[2024-10-26 06:00] VITALS: BMI 20.5
[2024-10-26 07:45] VITALS: BP 96/57; PULSE 84; RESP 18; TEMP 36.3; O2SAT 90
[2024-10-26 08:00] LABS: Vancomycin Random 16.8 mcg/mL (15-20)
[2024-10-26 08:03] LABS: Anion Gap 12 (12-20); Blood Urea Nitrogen 28 mg/dL (9-16); Calcium 8.8 mg/dL (8.4-10.2); Carbon Dioxide 20 mmol/L (22-29); Chloride 108 mmol/L (96-108); Creatinine Clr Calc Pharmacy 50.7; Estimated Glomerular Filt Rate 55; Glucose Random 90 mg/dL (60-115); Potassium 3.8 mmol/L (3.3-5.1); Sodium 136 mmol/L (135-145)
--- NOTE | 2024-10-26 08:32 | HE.PHANOTE ---
VANCO DOSE ADJUSTMENT BASED ON INCREASE AND SCR DOSE CONTINUED AT 1000 Q 24H. NEXT LEVEL 10/27 @ 1900
[2024-10-26] MEDS: Midodrine HCl 5 MG TABLET PO ×3 (09:21→21:02)
[2024-10-26] MEDS: Folic Acid 1 MG TABLET PO (09:21)
[2024-10-26] MEDS: Thiamine HCL 100 MG TABLET 200 MG PO (09:22)
[2024-10-26] MEDS: PHENobarbitaL 15 MG TABLET PO (09:22)
[2024-10-26] MEDS: Magnesium Oxide 400 MG TABLET PO ×2 (09:22→16:36)
[2024-10-26] MEDS: 0.9 % Sodium Chloride Flush 3 ML SYRINGE IVFLUSH ×3 (09:23→21:02)
[2024-10-26] MEDS: Fluticasone Propionate Nasal 16 GM SPRAY 1 SPRAY NOSTRIL-B (09:23)
[2024-10-26] MEDS: Albumin Human 25 % 100 ML IV ×3 (11:09→23:20)
[2024-10-26 12:00] VITALS: BP 97/58; PULSE 79; RESP 18; TEMP 36.4; O2SAT 93
[2024-10-26] MEDS: Multivitamin TABLET 1 TAB PO (12:18)
[2024-10-26] MEDS: Thiamine HCL 200 MG in 0.9 % Sodium Chloride 100 ML 204 MG IV ×2 (12:23→21:46)
--- NOTE | 2024-10-26 14:55 | HO.PM.IMPN ---
Subjective Subjective Date of Service: 10/26/24 Interval History: pneumonia , alcoholic liver dis Review of Systems sob somewhat improving denies any chest pain no fevers Physical Exam Vital Signs: Vital Signs: Last Vital Signs Temp 97.6 F 10/26/24 12:00 Pulse 79 10/26/24 12:00 Resp 18 10/26/24 12:00 BP 97/58 L 10/26/24 12:00 Pulse Ox 93 10/26/24 12:00 O2 Del Method Nasal Cannula 10/26/24 12:00 O2 Flow Rate 5 10/26/24 12:00 BMI result Body Mass Index 20.5 Appearance: Alert.? Oriented X3.? cvs: rrr, [id number]. res: air entry fair ,diminshed at bases. abd: no rebound or guarding ,nt, bs present. ext pulses present , no cyanosis ,no edema . neuro: axo3 , nonfocal. Objective Data Active Medications Acetaminophen (Acetaminophen 325 Mg Tablet) 650 mg PO Q6H PRN PRN Reason: Pain, Mild (Pain Scale 1-3), fever or headache Last Admin: 10/25/24 00:41 Dose: 650 mg Documented By: THUY Calcium Carbonate (Calcium Carbonate 750 Mg Tab.Chew) 750 mg PO Q4H PRN PRN Reason: Heartburn Fluticasone Propionate (Fluticasone Propionate Nasal 16 Gm [place]) 1 spray NOSTRIL-B DAILY [facility] Last Admin: 10/26/24 09:23 Dose: 1 spray Documented By: KATTY Folic Acid (Folic Acid 1 Mg Tablet) 1 mg PO DAILY [facility] Last Admin: 10/26/24 09:21 Dose: 1 mg Documented By: KATTY Piperacillin Sod/Tazobactam (Sod 3.375 gm/ Sodium Chloride) 50 mls @ 100 mls/hr IV Q6H [facility] Last Admin: 10/26/24 14:52 Dose: 100 mls/hr Documented By: KATTY Vancomycin HCl 1,000 mg/ (Sodium Chloride) 270 mls @ 270 mls/hr IV Q24H [facility] Last Infusion: 10/25/24 23:53 Dose: Infused Documented By: JENNIFER Albumin Human (Kedbumin 25 %) 100 mls @ 100 mls/hr IV Q6H [facility] Stop: 10/27/24 05:14 Last Infusion: 10/26/24 12:26 Dose: Infused Documented By: KATTY Thiamine HCl 200 mg/ Sodium (Chloride) 102 mls @ 204 mls/hr IV Q8H [facility] Last Infusion: 10/26/24 13:06 Dose: Infused Documented By: KATTY Magnesium Hydroxide (Milk Of Magnesia 30 Ml Oral.Susp) 30 ml PO DAILY PRN PRN Reason: Constipation Magnesium Oxide (Magnesium Oxide 400 Mg Tablet) 400 mg PO BIDPC [facility] Last Admin: 10/26/24 09:22 Dose: 400 mg Documented By: KATTY Melatonin (Melatonin 3 Mg Tablet) 6 mg PO BEDTIME PRN PRN Reason: Insomnia Midodrine (Midodrine Hcl 5 Mg Tablet) 5 mg PO TID [facility] Last Admin: 10/26/24 14:52 Dose: 5 mg Documented By: KATTY Multivitamins/Vitamin C (Multivitamin Tablet) 1 tab PO DAILY [facility] Last Admin: 10/26/24 12:18 Dose: 1 tab Documented By: KATTY Omeprazole (Omeprazole 20 Mg Capsule.Dr) 20 mg PO BID@0630,1630 [facility] Last Admin: 10/26/24 05:56 Dose: 20 mg Documented By: JENNIFER Pharmacy Consult (Consult Rx Etoh Phenob Im/Po) 1 each MISCELLANE ONCE PRN; Protocol PRN Reason: Consult order Pharmacy Consult (Consult Rx Vancomycin Dosing) 1 each MISCELLANE DAILY PRN PRN Reason: Consult order Sodium Chloride (0.9 % Sodium Chloride Flush 3 Ml Syringe) 3 ml IVFLUSH QSHIFT [facility] Last Admin: 10/26/24 09:23 Dose: 3 ml Documented By: KATTY Labs 10/22/24 06:37 10/26/24 06:56 Labs: Laboratory Results - last 24 hr 10/26/24 06:56 Anion Gap 12 Estim Creat Clear Calc 50.7 Estimated GFR 55 Random Glucose 90 Calcium 8.8 Random Vancomycin 16.8 Microbiology Microbiology Results: Microbiology 10/23/24 13:45 Gram Stain - Final Abdominal Fluid Routine Culture - Final No growth after 2 days Anaerobic Culture - Preliminary No growth to date. 10/21/24 05:39 Blood Culture - Final Blood - Venous No growth after 5 days. 10/21/24 05:28 Blood Culture - Final Blood - Venous No growth after 5 days. Assessment and Plan (1) Acute and chronic respiratory failure: Status: Acute (2) Aspiration pneumonia: Status: Acute Assessment and Plan: 54-year-old male with a past medical history of alcohol abuse and dependence and stigmata of chronic liver disease who was brought in by ambulance for what appeared to be intoxication. The patient has been found to have hypoxia requiring 3 L of supplemental oxygen as well as hypotension which has responded to intravenous fluids. He is exhibiting signs of withdrawal and given his hypoxia now will be admitted for further workup and treatment. Acute alcohol withdrawal : moniter ciwa continue phenobarbital. addiction consult. Acute respiratory failure with hypoxia Chest x-ray with some interstitial findings as well as patchy opacities Given his intoxication and prior aspiration Flu/RSV/COVID negative hypoxia improving cxr-seems similar plan vanco trough 16 continue with IV antibiotics,vanco+zosyn ,moniter respiratory status closely, taper oxygen. ALcoholic liver disease ? unclear etiology( multifactorial -alcohol use , added hepatitis screen, hiv). pancytopenia coagulopathy, ascitis moniter lfts GI eval-s/p paracentesis -less likely sbp,blood /ascitis culture -prelim negative had paracentesis-2.7 liter fluid removed. continue albumin and midodrine , hold lasix.continue albumin HypoK and HypoMg. repleted, continue to monitor hyponatremia -likely dec pointake /liver dis continue to moniter. mild hypocalemia -calcium levels seems normal when corrected for hypoalbuminemia, resolved. Alcoholic liver disease leukopenia / thrombocytopenia / elevated T. bili are secondary to chronic liver disease, not severe sepsis DVT pptx -- mechanical due to thrombocytopenia ongoing alcohol withdrawal complicated by acute resp. failure requiring supplemental O2 with risk factors including alcoholic liver disease / cirrhosis -need oxygen taper,a ntibiotics ,renal function/electrolytes monitering Quality Stroke Does the patient have a stroke diagnosis?: No VTE Prior VTE?: No VTE Risk Level:: Medical - moderate - high VTE Device Contraindication: N/A - Device Ordered VTE Drug Contraindication: Treatment Not Tolerated
[2024-10-26 16:00] VITALS: BP 100/52; PULSE 86; RESP 18; TEMP 36.8
[2024-10-26] MEDS: Doxycycline Monohydrate 100 MG CAPSULE PO (16:36)
[2024-10-26] MEDS: Potassium Chloride Packet 20 MEQ PACKET PO (16:37)
[2024-10-26 19:22] VITALS: BP 105/58; PULSE 86; RESP 22; TEMP 37.6; O2SAT 93
[2024-10-26 23:13] VITALS: BP 102/51; PULSE 88; RESP 22; TEMP 37.7; O2SAT 95
[2024-10-27] MEDS: Piperacillin Sodium/Tazobactam 3.375 GM in 0.9 % Sodium Chloride 50 ML IV ×2 (01:10→08:57)
[2024-10-27 03:39] VITALS: BP 104/51; PULSE 80; RESP 21; TEMP 38; O2SAT 92
[2024-10-27] MEDS: Albumin Human 25 % 100 ML IV ×3 (04:02→16:55)
[2024-10-27] MEDS: Thiamine HCL 200 MG in 0.9 % Sodium Chloride 100 ML 204 MG IV ×3 (04:02→20:00)
[2024-10-27 05:19] VITALS: BMI 22.2
[2024-10-27] MEDS: Doxycycline Monohydrate 100 MG CAPSULE PO ×2 (05:36→16:52)
[2024-10-27] MEDS: Omeprazole 20 MG CAPSULE.DR PO ×2 (05:36→15:46)
[2024-10-27 07:46] VITALS: BP 100/54; PULSE 78; TEMP 37.4; O2SAT 94
[2024-10-27] MEDS: Magnesium Oxide 400 MG TABLET PO ×2 (08:50→16:52)
[2024-10-27] MEDS: Fluticasone Propionate Nasal 16 GM SPRAY 1 SPRAY NOSTRIL-B (08:51)
[2024-10-27] MEDS: Midodrine HCl 5 MG TABLET PO ×3 (08:51→21:13)
[2024-10-27] MEDS: Multivitamin TABLET 1 TAB PO (08:51)
[2024-10-27] MEDS: 0.9 % Sodium Chloride Flush 3 ML SYRINGE IVFLUSH ×3 (08:51→20:01)
[2024-10-27] MEDS: Folic Acid 1 MG TABLET PO (08:51)
[2024-10-27 08:53] LABS: Anion Gap 13 (12-20); Blood Urea Nitrogen 27 mg/dL (9-16); Calcium 9.2 mg/dL (8.4-10.2); Carbon Dioxide 19 mmol/L (22-29); Chloride 109 mmol/L (96-108); Creatinine Clr Calc Pharmacy 63.9; Estimated Glomerular Filt Rate > 60; Glucose Random 76 mg/dL (60-115); Potassium 4.1 mmol/L (3.3-5.1); Sodium 137 mmol/L (135-145)
[2024-10-27] MEDS: Amoxicillin/Potassium Clav 500 MG TABLET PO ×2 (10:30→21:13)
[2024-10-27 11:54] VITALS: BP 106/55; PULSE 82; RESP 20; TEMP 36.6; O2SAT 94
--- NOTE | 2024-10-27 14:26 | P.PNIM_ITS ---
Subjective Subjective Date of Service: 10/27/24 Interval History: pneumonia Review of Systems sob and hypoxia seems improving Physical Exam 2 Vital Signs: Vital Signs: Last Vital Signs Temp 97.8 F 10/27/24 11:54 Pulse 82 10/27/24 11:54 Resp 20 10/27/24 11:54 BP 106/55 L 10/27/24 11:54 Pulse Ox 94 10/27/24 11:54 O2 Del Method Room Air 10/27/24 11:54 O2 Flow Rate 5 10/27/24 07:46 BMI result Body Mass Index 22.2 Appearance: Alert.? Oriented X3.? cvs: rrr, [id number]. res: air entry fair ,diminshed at bases. abd: no rebound or guarding ,nt, bs present. ext pulses present , no cyanosis ,no edema . neuro: axo3 , nonfocal. Objective Data Active Medications Acetaminophen (Acetaminophen 325 Mg Tablet) 650 mg PO Q6H PRN PRN Reason: Pain, Mild (Pain Scale 1-3), fever or headache Last Admin: 10/25/24 00:41 Dose: 650 mg Documented By: THUY Amoxicillin/Clavulanate Potassium (Amoxicillin/Potassium Clav 500 Mg Tablet) 500 mg PO Q12H [facility] Last Admin: 10/27/24 10:30 Dose: 500 mg Documented By: KATTY Calcium Carbonate (Calcium Carbonate 750 Mg Tab.Chew) 750 mg PO Q4H PRN PRN Reason: Heartburn Doxycycline Monohydrate (Doxycycline Monohydrate 100 Mg Capsule) 100 mg PO Q12H [facility] Last Admin: 10/27/24 05:36 Dose: 100 mg Documented By: JENNIFER Fluticasone Propionate (Fluticasone Propionate Nasal 16 Gm [place]) 1 spray NOSTRIL-B DAILY [facility] Last Admin: 10/27/24 08:51 Dose: 1 spray Documented By: KATTY Folic Acid (Folic Acid 1 Mg Tablet) 1 mg PO DAILY [facility] Last Admin: 10/27/24 08:51 Dose: 1 mg Documented By: KATTY Thiamine HCl 200 mg/ Sodium (Chloride) 102 mls @ 204 mls/hr IV Q8H [facility] Last Infusion: 10/27/24 12:43 Dose: Infused Documented By: KATTY Magnesium Hydroxide (Milk Of Magnesia 30 Ml Oral.Susp) 30 ml PO DAILY PRN PRN Reason: Constipation Magnesium Oxide (Magnesium Oxide 400 Mg Tablet) 400 mg PO BIDPC [facility] Last Admin: 10/27/24 08:50 Dose: 400 mg Documented By: KATTY Melatonin (Melatonin 3 Mg Tablet) 6 mg PO BEDTIME PRN PRN Reason: Insomnia Midodrine (Midodrine Hcl 5 Mg Tablet) 5 mg PO TID [facility] Last Admin: 10/27/24 08:51 Dose: 5 mg Documented By: KATTY Multivitamins/Vitamin C (Multivitamin Tablet) 1 tab PO DAILY [facility] Last Admin: 10/27/24 08:51 Dose: 1 tab Documented By: KATTY Omeprazole (Omeprazole 20 Mg Capsule.Dr) 20 mg PO BID@0630,1630 [facility] Last Admin: 10/27/24 05:36 Dose: 20 mg Documented By: JENNIFER Pharmacy Consult (Consult Rx Etoh Phenob Im/Po) 1 each MISCELLANE ONCE PRN; Protocol PRN Reason: Consult order Sodium Chloride (0.9 % Sodium Chloride Flush 3 Ml Syringe) 3 ml IVFLUSH QSHIFT [facility] Last Admin: 10/27/24 08:51 Dose: 3 ml Documented By: KATTY Labs 10/22/24 06:37 10/27/24 08:24 Labs: Laboratory Results - last 24 hr 10/23/24 10/27/24 10/27/24 13:45 07:19 08:24 Anion Gap 13 Estim Creat Clear Calc Cancelled 63.9 Estimated GFR Cancelled > 60 Random Glucose 76 Calcium 9.2 Peritoneal Albumin 1.0 Microbiology Microbiology Results: Microbiology 10/23/24 13:45 Gram Stain - Final Abdominal Fluid Routine Culture - Final No growth after 2 days Anaerobic Culture - Preliminary No growth to date. Assessment and Plan (1) Acute and chronic respiratory failure: Status: Acute (2) Aspiration pneumonia: Status: Acute Assessment and Plan: 54-year-old male with a past medical history of alcohol abuse and dependence and stigmata of chronic liver disease who was brought in by ambulance for what appeared to be intoxication. The patient has been found to have hypoxia requiring 3 L of supplemental oxygen as well as hypotension which has responded to intravenous fluids. He is exhibiting signs of withdrawal and given his hypoxia now will be admitted for further workup and treatment. Acute alcohol withdrawal : moniter ciwa continue phenobarbital. addiction consult. Acute respiratory failure with hypoxia Chest x-ray with some interstitial findings as well as patchy opacities Given his intoxication and prior aspiration Flu/RSV/COVID negative hypoxia improving cxr-seems similar plan d/w pulm hypoxia improving ,switch to po antibiotics -doxy and augmentin,moniter respiratory status closely, taper oxygen. ALcoholic liver disease ? unclear etiology( multifactorial -alcohol use , added hepatitis screen, hiv). pancytopenia coagulopathy, ascitis moniter lfts GI eval-s/p paracentesis -less likely sbp,blood /ascitis culture -prelim negative had paracentesis-2.7 liter fluid removed. continue albumin and midodrine , hold lasix.continue albumin HypoK and HypoMg. repleted, continue to monitor hyponatremia -likely dec pointake /liver dis continue to moniter. mild hypocalemia -calcium levels seems normal when corrected for hypoalbuminemia, resolved. Alcoholic liver disease leukopenia / thrombocytopenia / elevated T. bili are secondary to chronic liver disease, not severe sepsis DVT pptx -- mechanical due to thrombocytopenia ongoing alcohol withdrawal complicated by acute resp. failure requiring supplemental O2 with risk factors including alcoholic liver disease / cirrhosis -need oxygen taper,a ntibiotics ,renal function/electrolytes monitering Quality Stroke Does the patient have a stroke diagnosis?: No VTE Prior VTE?: No VTE Risk Level:: Medical - moderate - high VTE Device Contraindication: N/A - Device Ordered VTE Drug Contraindication: Treatment Not Tolerated
[2024-10-27 15:49] VITALS: BP 110/55; PULSE 88; RESP 18; TEMP 37.6; O2SAT 94
[2024-10-27 20:00] VITALS: BP 118/56; PULSE 92; RESP 20; TEMP 36.4; O2SAT 89
[2024-10-27] MEDS: Melatonin 3 MG TABLET 6 MG PO (21:13)
[2024-10-27] MEDS: Acetaminophen 325 MG TABLET 650 MG PO (21:15)
[2024-10-28] VITALS: BP 106/52; PULSE 84; RESP 20; TEMP 36.6
[2024-10-28 04:00] VITALS: BP 100/50; PULSE 79; RESP 20; TEMP 36.4; O2SAT 89
[2024-10-28] MEDS: Thiamine HCL 200 MG in 0.9 % Sodium Chloride 100 ML 204 MG IV ×3 (04:37→20:11)
[2024-10-28] MEDS: Omeprazole 20 MG CAPSULE.DR PO ×2 (05:53→15:51)
[2024-10-28] MEDS: Doxycycline Monohydrate 100 MG CAPSULE PO ×2 (05:53→17:15)
[2024-10-28 06:00] VITALS: BMI 22.6
[2024-10-28 06:20] LABS: Creatinine Clr Calc Pharmacy 73.5; Estimated Glomerular Filt Rate > 60
[2024-10-28 07:30] VITALS: BP 114/50; PULSE 65; RESP 18; TEMP 37.4; O2SAT 91
--- NOTE | 2024-10-28 09:05 | P.PNNP_ITS ---
Subjective Subjective Date of Service: 10/28/24 Interval history: 54 y/o old male with a PMH of alcoholic cirrhosis, homelessness- lives behind a liquor store and only medical care is through ED visits for periodic intoxication, does not have a PCP or receive regular medical care. presented 10/20 with alcohol intoxication via EMS. Nephrology consulted for RAVI. creatinine 0.72-0.86 since admission, 10/25 creatinine bumped to 1.12, has been trending down, 10/28 creatinine is 1.00 patient has been receiving vancomycin but levels remain low (10/25 level 13.7) for respiratory failure chest xray showing insterstitial findings and patchy opacities (hx of aspiration with intoxication). previous abdominal CT in Aug 2023 suggesting cirrhosis, kidneys/ureters unremarkable. platelet counts low, most recent 34, chronic anemia, bilirubin 2.9. patient received paracentesis and removed 2.7L fluid, ascites culture pending; receiving midodrine 5mg PO TID and IV albumin patient states he drinks 2-3 beers and half a pint of vodka daily. states he has been drinking this amount for many years. Denies chest pain, dizziness, shortness of breath Denies abdominal pain, flank pain, difficulty urinating denies other new symptoms/concerns Physical Exam 2 Vital Signs: Vital Signs: Last Vital Signs Temp 99.4 F 10/28/24 07:30 Pulse 65 10/28/24 07:30 Resp 18 10/28/24 07:30 BP 114/50 L 10/28/24 07:30 Pulse Ox 91 L 10/28/24 07:30 O2 Del Method Nasal Cannula 10/28/24 07:30 O2 Flow Rate 5 10/28/24 07:30 BMI result Body Mass Index 22.6 Const: General: no acute distress, alert and awake Resp: Effort & Inspection: normal respiratory effort and able to speak in complete sentences Auscultation: clear to auscultation bilaterally Cardio: Rate: regular rate Rhythm: regular rhythm Heart sounds: S1 normal heart sound present and S2 normal heart sound present GI: Palpation (GI): Soft to palpation and nontender : General: Yes no CVA tenderness Back/Spine/Pelvis: Back: no CVA tenderness Skin: Rashes: no rashes Extrem: General: No edema Objective Data Labs 10/22/24 06:37 10/28/24 05:46 Labs: Laboratory Results - last 24 hr 10/27/24 10/28/24 19:02 05:46 Creatinine 1.00 Estim Creat Clear Calc 73.5 Estimated GFR > 60 Random Vancomycin 3.0 L Microbiology Microbiology Results: Microbiology 10/23/24 13:45 Abdominal Fluid Gram Stain - Final 10/23/24 13:45 Abdominal Fluid Routine Culture - Final No growth after 2 days 10/23/24 13:45 Abdominal Fluid Anaerobic Culture - Final NO GROWTH AFTER 5 DAYS 10/21/24 05:39 Blood - Venous Blood Culture - Final No growth after 5 days. 10/21/24 05:28 Blood - Venous Blood Culture - Final No growth after 5 days. Procedures Date of Service Date of Service: 10/28/24 Assessment & Plan Assessment and plan (1) RAVI (acute kidney injury): Status: Acute (2) Alcohol use disorder: Status: Acute (3) Alcoholic liver disease: Status: Acute Plan RAVI likely hemodynamic RAVI from fluctuating blood pressures/hypoperfusion from liver disease Improving recommend to discontinue diuretics given low blood pressures; may add spironolactone tomorrow and if tolerating over next day may then subsequently add furosemide avoid nephrotoxins monitor I&O closely, regular blood pressure checks continue supportive care Will continue to follow Discussed with Dr Westfall Time Spent With Patient Time: Total time managing care of this patient today ____ minutes. Progress Note: Quality Stroke Does the patient have a stroke diagnosis?: No
[2024-10-28] MEDS: Folic Acid 1 MG TABLET PO (09:33)
[2024-10-28] MEDS: Midodrine HCl 5 MG TABLET PO ×3 (09:33→20:20)
[2024-10-28] MEDS: Magnesium Oxide 400 MG TABLET PO ×2 (09:33→17:15)
[2024-10-28] MEDS: Multivitamin TABLET 1 TAB PO (09:33)
[2024-10-28] MEDS: Spironolactone 25 MG TABLET 12.5 MG PO (09:33)
[2024-10-28] MEDS: Furosemide 20 MG TABLET PO (09:33)
[2024-10-28] MEDS: 0.9 % Sodium Chloride Flush 3 ML SYRINGE IVFLUSH ×3 (09:36→20:20)
[2024-10-28] MEDS: Amoxicillin/Potassium Clav 500 MG TABLET PO ×2 (09:40→20:25)
[2024-10-28] MEDS: Fluticasone Propionate Nasal 16 GM SPRAY 1 SPRAY NOSTRIL-B (09:40)
[2024-10-28 12:00] VITALS: BP 107/59; PULSE 87; RESP 20; TEMP 37.3; O2SAT 92
--- NOTE | 2024-10-28 14:26 | MHC.CM.PN ---
Per rounds and EMR review, pt. requires ongoing acute care for alcohol withdrawal and acute respiratory failure. CM met with pt. to ask if he is willing to go to [facility] after DC, he said he is not, he plans to return to the street.
--- NOTE | 2024-10-28 14:27 | P.PNIM_ITS ---
Subjective Subjective Date of Service: 10/28/24 Interval History: pneumonia , hypoxia Review of Systems sob somewhat improving denies any chest pain dneies any abd pain or nausea or vomitin Physical Exam 2 Vital Signs: Vital Signs: Last Vital Signs Temp 99.1 F 10/28/24 12:00 Pulse 87 10/28/24 12:00 Resp 20 10/28/24 12:00 BP 107/59 L 10/28/24 12:00 Pulse Ox 92 10/28/24 12:00 O2 Del Method Nasal Cannula 10/28/24 12:00 O2 Flow Rate 5 10/28/24 12:00 BMI result Body Mass Index 22.6 Appearance: Alert.? Oriented X3.? cvs: rrr, [id number]. res: air entry fair ,diminshed at bases. abd: no rebound or guarding ,nt, bs present. ext pulses present , no cyanosis. neuro: axo3 , nonfocal. Objective Data Active Medications Acetaminophen (Acetaminophen 325 Mg Tablet) 650 mg PO Q6H PRN PRN Reason: Pain, Mild (Pain Scale 1-3), fever or headache Last Admin: 10/27/24 21:15 Dose: 650 mg Documented By: YONI Amoxicillin/Clavulanate Potassium (Amoxicillin/Potassium Clav 500 Mg Tablet) 500 mg PO Q12H [facility] Last Admin: 10/28/24 09:40 Dose: 500 mg Documented By: VADIM Calcium Carbonate (Calcium Carbonate 750 Mg Tab.Chew) 750 mg PO Q4H PRN PRN Reason: Heartburn Doxycycline Monohydrate (Doxycycline Monohydrate 100 Mg Capsule) 100 mg PO Q12H [facility] Last Admin: 10/28/24 05:53 Dose: 100 mg Documented By: YONI Fluticasone Propionate (Fluticasone Propionate Nasal 16 Gm [place]) 1 spray NOSTRIL-B DAILY [facility] Last Admin: 10/28/24 09:40 Dose: 1 spray Documented By: VADIM Folic Acid (Folic Acid 1 Mg Tablet) 1 mg PO DAILY [facility] Last Admin: 10/28/24 09:33 Dose: 1 mg Documented By: VADIM Thiamine HCl 200 mg/ Sodium (Chloride) 102 mls @ 204 mls/hr IV Q8H [facility] Last Infusion: 10/28/24 12:37 Dose: Infused Documented By: VADIM Magnesium Hydroxide (Milk Of Magnesia 30 Ml Oral.Susp) 30 ml PO DAILY PRN PRN Reason: Constipation Magnesium Oxide (Magnesium Oxide 400 Mg Tablet) 400 mg PO BIDPC [facility] Last Admin: 10/28/24 09:33 Dose: 400 mg Documented By: VADIM Melatonin (Melatonin 3 Mg Tablet) 6 mg PO BEDTIME PRN PRN Reason: Insomnia Last Admin: 10/27/24 21:13 Dose: 6 mg Documented By: YONI Midodrine (Midodrine Hcl 5 Mg Tablet) 5 mg PO TID [facility] Last Admin: 10/28/24 09:33 Dose: 5 mg Documented By: VADIM Multivitamins/Vitamin C (Multivitamin Tablet) 1 tab PO DAILY [facility] Last Admin: 10/28/24 09:33 Dose: 1 tab Documented By: VADIM Omeprazole (Omeprazole 20 Mg Capsule.Dr) 20 mg PO BID@0630,1630 [facility] Last Admin: 10/28/24 05:53 Dose: 20 mg Documented By: YONI Pharmacy Consult (Consult Rx Etoh Phenob Im/Po) 1 each MISCELLANE ONCE PRN; Protocol PRN Reason: Consult order Sodium Chloride (0.9 % Sodium Chloride Flush 3 Ml Syringe) 3 ml IVFLUSH QSHIFT [facility] Last Admin: 10/28/24 09:36 Dose: 3 ml Documented By: VADIM Labs 10/22/24 06:37 10/28/24 05:46 Labs: Laboratory Results - last 24 hr 10/27/24 10/28/24 19:02 05:46 Estim Creat Clear Calc 73.5 Estimated GFR > 60 Random Vancomycin 3.0 L Microbiology Microbiology Results: Microbiology 10/23/24 13:45 Gram Stain - Final Abdominal Fluid Routine Culture - Final No growth after 2 days Anaerobic Culture - Final NO GROWTH AFTER 5 DAYS Assessment and Plan (1) Acute and chronic respiratory failure: Status: Acute (2) Aspiration pneumonia: Status: Acute Assessment and Plan: 54-year-old male with a past medical history of alcohol abuse and dependence and stigmata of chronic liver disease who was brought in by ambulance for what appeared to be intoxication. The patient has been found to have hypoxia requiring 3 L of supplemental oxygen as well as hypotension which has responded to intravenous fluids. He is exhibiting signs of withdrawal and given his hypoxia now will be admitted for further workup and treatment. Acute alcohol withdrawal : moniter ciwa continue phenobarbital. addiction consult. Acute respiratory failure with hypoxia Chest x-ray with some interstitial findings as well as patchy opacities Given his intoxication and prior aspiration Flu/RSV/COVID negative hypoxia improving cxr-seems similar plan d/w pulm hypoxia improving ,switch to po antibiotics -doxy and augmentin on 10/27,moniter respiratory status closely, taper oxygen. need pulm followup and oxygen taper.. prerenal azotemia vs angelika: improving with po inatke ,bp stablisation,holding diuretics -please see below. ALcoholic liver disease ? unclear etiology( multifactorial -alcohol use ). ascitis pancytopenia coagulopathy, ascitis moniter lfts hepatitis screen, hiv-nonreactive . s/p paracentesis -less likely sbp,blood /ascitis culture -negative, acitis fluid pathology pending had paracentesis-2.7 liter fluid removed on 10/23. plan: continue albumin and midodrine . acitis fluid pathology pending nephro rec to hold diuretics for today ,receheck renal function tomorrow . gI following -rec us liver for hcc. hyponatremia and HypoK and HypoMg-likely dec pointake /liver dis/alcohol intake. Hypokalemia and hypomagnesemia repleted and resolved. Hyponatremia also improving with p.o. intake. mild hypocalemia -calcium levels seems normal when corrected for hypoalbuminemia, resolved. Alcoholic liver disease leukopenia / thrombocytopenia / elevated T. bili are secondary to chronic liver disease, not severe sepsis DVT pptx -- mechanical due to thrombocytopenia ongoing alcohol withdrawal complicated by acute resp. failure requiring supplemental O2 with risk factors including alcoholic liver disease / cirrhosis -need oxygen taper,antibiotics ,renal function/electrolytes monitering as well as acitis pathology and liver us pending. Quality Stroke Does the patient have a stroke diagnosis?: No VTE Prior VTE?: No VTE Risk Level:: Medical - moderate - high VTE Device Contraindication: N/A - Device Ordered VTE Drug Contraindication: Treatment Not Tolerated
[2024-10-28 16:00] VITALS: BP 106/55; PULSE 81; RESP 20; TEMP 37.5; O2SAT 93
[2024-10-28 20:00] VITALS: BP 113/58; PULSE 80; RESP 18; TEMP 38.1; O2SAT 93
[2024-10-28] MEDS: Acetaminophen 325 MG TABLET 650 MG PO (20:11)
[2024-10-28] MEDS: Melatonin 3 MG TABLET 6 MG PO (20:20)
[2024-10-29] VITALS (7 sets, daily range): BP systolic 100–137; BP diastolic 48–74; PULSE 68–81; RESP 18–20; TEMP 36.7–37.8; O2SAT 92–95; BMI 27.9
[2024-10-29] MEDS: Thiamine HCL 200 MG in 0.9 % Sodium Chloride 100 ML 204 MG IV ×3 (04:52→19:58)
[2024-10-29] MEDS: Doxycycline Monohydrate 100 MG CAPSULE PO ×2 (05:22→17:47)
[2024-10-29] MEDS: Acetaminophen 325 MG TABLET 650 MG PO (05:22)
[2024-10-29] MEDS: Omeprazole 20 MG CAPSULE.DR PO ×2 (05:23→16:13)
[2024-10-29 06:40] LABS: Anion Gap 11 (12-20); Blood Urea Nitrogen 27 mg/dL (9-16); Calcium 9.7 mg/dL (8.4-10.2); Carbon Dioxide 19 mmol/L (22-29); Chloride 112 mmol/L (96-108); Creatinine Clr Calc Pharmacy 75.4; Creatinine Clr Calc Pharmacy 78.2; Estimated Glomerular Filt Rate > 60; Glucose Random 92 mg/dL (60-115); Potassium 4.2 mmol/L (3.3-5.1); Sodium 138 mmol/L (135-145)
[2024-10-29 07:07] LABS: Hemoglobin 7.5 g/dl (14.0-18.0); Mean Corpuscular HGB Conc 32.6 g/dl (31.0-36.0); Mean Corpuscular Hemoglobin 34.7 pg (27.0-33.0); Mean Corpuscular Volume 106.5 fL (80.0-98.0); Mean Platelet Volume 12.6 fL (9.4-12.4); Red Blood Count 2.16 X10*6/uL (4.60-5.80); Red Cell Distribution Width 16.4 % (11.0-16.0); White Blood Count 4.7 X10*3/uL (4.8-10.8)
[2024-10-29 07:08] LABS: Platelet Count 72 X10*3/uL (160-400)
[2024-10-29] MEDS: Multivitamin TABLET 1 TAB PO (08:24)
[2024-10-29] MEDS: Folic Acid 1 MG TABLET PO (08:25)
[2024-10-29] MEDS: Magnesium Oxide 400 MG TABLET PO ×2 (08:25→17:46)
[2024-10-29] MEDS: Midodrine HCl 5 MG TABLET PO ×2 (08:25→16:13)
[2024-10-29] MEDS: Amoxicillin/Potassium Clav 500 MG TABLET PO ×2 (08:25→21:30)
[2024-10-29] MEDS: 0.9 % Sodium Chloride Flush 3 ML SYRINGE IVFLUSH ×3 (08:28→19:57)
[2024-10-29] MEDS: Fluticasone Propionate Nasal 16 GM SPRAY 1 SPRAY NOSTRIL-B (08:28)
--- NOTE | 2024-10-29 08:40 | P.PNNP_ITS ---
Subjective Subjective Date of Service: 10/29/24 Interval history: 54 y/o old male with a PMH of alcoholic cirrhosis, homelessness- lives behind a liquor store and only medical care is through ED visits for periodic intoxication, does not have a PCP or receive regular medical care. presented 10/20 with alcohol intoxication via EMS. Nephrology consulted for RAVI. creatinine 0.72-0.86 since admission, 10/25 creatinine bumped to 1.12, has been trending down, 10/28 creatinine 1.00, 10/29 creatinine 1.09 patient has been receiving vancomycin but levels remain low (10/25 level 13.7) for respiratory failure chest xray showing insterstitial findings and patchy opacities (hx of aspiration with intoxication). previous abdominal CT in Aug 2023 suggesting cirrhosis, kidneys/ureters unremarkable. platelet counts low, most recent 34, chronic anemia, bilirubin 2.9. patient received paracentesis and removed 2.7L fluid, ascites culture pending; receiving midodrine 5mg PO TID and IV albumin patient states he drinks 2-3 beers and half a pint of vodka daily. states he has been drinking this amount for many years. Denies chest pain, dizziness, shortness of breath Denies abdominal pain, flank pain, difficulty urinating denies other new symptoms/concerns Physical Exam 2 Vital Signs: Vital Signs: Last Vital Signs Temp 98.7 F 10/29/24 07:33 Pulse 78 10/29/24 07:33 Resp 18 10/29/24 07:33 BP 121/59 L 10/29/24 07:33 Pulse Ox 93 10/29/24 07:33 O2 Del Method Nasal Cannula 10/29/24 07:33 O2 Flow Rate 5 10/29/24 07:33 BMI result Body Mass Index 27.9 Const: General: no acute distress, alert and awake Resp: Effort & Inspection: normal respiratory effort and able to speak in complete sentences Auscultation: clear to auscultation bilaterally Cardio: Rate: regular rate Rhythm: regular rhythm Heart sounds: S1 normal heart sound present and S2 normal heart sound present GI: Palpation (GI): Soft to palpation and nontender : General: Yes no CVA tenderness Back/Spine/Pelvis: Back: no CVA tenderness Skin: Rashes: no rashes Extrem: General: No edema Objective Data Labs 10/29/24 06:10 12/17/24 06:10 Labs: Laboratory Results - last 24 hr 10/29/24 10/29/24 10/29/24 06:10 06:10 06:10 WBC 4.7 L RBC 2.16 L Hgb 7.5 L Hct 23.0 L MCV 106.5 H MCH 34.7 H MCHC 32.6 RDW 16.4 H Plt Count 72 L D MPV 12.6 H Absolute Nucleated RBC 0.000 Nucleated RBC % (auto) 0.0 Sodium 138 Potassium 4.2 Chloride 112 H Carbon Dioxide 19 L Anion Gap 11 L BUN 27 H Creatinine 1.05 1.09 Estim Creat Clear Calc 78.2 75.4 Estimated GFR > 60 Random Glucose Calcium 10/29/24 06:10 WBC RBC Hgb Hct MCV MCH MCHC RDW Plt Count MPV Absolute Nucleated RBC Nucleated RBC % (auto) Sodium Potassium Chloride Carbon Dioxide Anion Gap BUN Creatinine Estim Creat Clear Calc Estimated GFR > 60 Random Glucose 92 Calcium 9.7 Microbiology Microbiology Results: Microbiology 10/23/24 13:45 Abdominal Fluid Gram Stain - Final 10/23/24 13:45 Abdominal Fluid Routine Culture - Final No growth after 2 days 10/23/24 13:45 Abdominal Fluid Anaerobic Culture - Final NO GROWTH AFTER 5 DAYS 10/21/24 05:39 Blood - Venous Blood Culture - Final No growth after 5 days. 10/21/24 05:28 Blood - Venous Blood Culture - Final No growth after 5 days. Procedures Date of Service Date of Service: 10/29/24 Assessment & Plan Assessment and plan (1) RAVI (acute kidney injury): Status: Acute (2) Alcohol use disorder: Status: Acute (3) Alcoholic liver disease: Status: Acute Plan RAVI likely hemodynamic RAVI from fluctuating blood pressures/hypoperfusion from liver disease Improving, creatinine stable recommend to discontinue diuretics given low blood pressures; may add spironolactone today and if tolerating over next day may then subsequently add furosemide as indicated. metabolic acidosis- compensatory, has primary respiratory alkalosis most likely from liver disease. Oral bicarb not indicated. avoid nephrotoxins monitor I&O closely, regular blood pressure checks continue supportive care Will continue to follow Discussed with Dr Westfall Time Spent With Patient Time: Total time managing care of this patient today ____ minutes. Progress Note: Quality Stroke Does the patient have a stroke diagnosis?: No
--- NOTE | 2024-10-29 10:28 | P.PNIM_ITS ---
Subjective Subjective Date of Service: 10/29/24 Interval History: f/u on acute hypoxic resp failure d/t aspiration pna still requiring high amount of O2 Physical Exam 2 Vital Signs: Vital Signs: Last Vital Signs Temp 98.7 F 10/29/24 07:33 Pulse 78 10/29/24 07:33 Resp 18 10/29/24 07:33 BP 121/59 L 10/29/24 07:33 Pulse Ox 93 10/29/24 07:33 O2 Del Method Nasal Cannula 10/29/24 07:33 O2 Flow Rate 5 10/29/24 07:33 BMI result Body Mass Index 27.9 General: AO X 3, no acute distress Resp: CTA bilateral CVS: S1,S2,RRR GI: +BS, NT, slightly distended Skin: No rash Neuro: motor grossly intact Psych: appropriate affect Objective Data Active Medications Acetaminophen (Acetaminophen 325 Mg Tablet) 650 mg PO Q6H PRN PRN Reason: Pain, Mild (Pain Scale 1-3), fever or headache Last Admin: 10/29/24 05:22 Dose: 650 mg Documented By: YONI Amoxicillin/Clavulanate Potassium (Amoxicillin/Potassium Clav 500 Mg Tablet) 500 mg PO Q12H REPLACED BY [facility] Last Admin: 10/29/24 08:25 Dose: 500 mg Documented By: VADIM Calcium Carbonate (Calcium Carbonate 750 Mg Tab.Chew) 750 mg PO Q4H PRN PRN Reason: Heartburn Doxycycline Monohydrate (Doxycycline Monohydrate 100 Mg Capsule) 100 mg PO Q12H REPLACED BY [facility] Last Admin: 10/29/24 05:22 Dose: 100 mg Documented By: YONI Fluticasone Propionate (Fluticasone Propionate Nasal 16 Gm [place]) 1 spray NOSTRIL-B DAILY REPLACED BY [facility] Last Admin: 10/29/24 08:28 Dose: 1 spray Documented By: VADIM Folic Acid (Folic Acid 1 Mg Tablet) 1 mg PO DAILY REPLACED BY [facility] Last Admin: 10/29/24 08:25 Dose: 1 mg Documented By: VADIM Thiamine HCl 200 mg/ Sodium (Chloride) 102 mls @ 204 mls/hr IV Q8H REPLACED BY [facility] Last Infusion: 10/29/24 05:22 Dose: Infused Documented By: YONI Magnesium Hydroxide (Milk Of Magnesia 30 Ml Oral.Susp) 30 ml PO DAILY PRN PRN Reason: Constipation Magnesium Oxide (Magnesium Oxide 400 Mg Tablet) 400 mg PO BIDPC REPLACED BY [facility] Last Admin: 10/29/24 08:25 Dose: 400 mg Documented By: VADIM Melatonin (Melatonin 3 Mg Tablet) 6 mg PO BEDTIME PRN PRN Reason: Insomnia Last Admin: 10/28/24 20:20 Dose: 6 mg Documented By: YONI Midodrine (Midodrine Hcl 5 Mg Tablet) 5 mg PO TID REPLACED BY [facility] Last Admin: 10/29/24 08:25 Dose: 5 mg Documented By: VADIM Multivitamins/Vitamin C (Multivitamin Tablet) 1 tab PO DAILY REPLACED BY [facility] Last Admin: 10/29/24 08:24 Dose: 1 tab Documented By: VADIM Omeprazole (Omeprazole 20 Mg Capsule.Dr) 20 mg PO BID@0630,1630 REPLACED BY [facility] Last Admin: 10/29/24 05:23 Dose: 20 mg Documented By: YONI Pharmacy Consult (Consult Rx Etoh Phenob Im/Po) 1 each MISCELLANE ONCE PRN; Protocol PRN Reason: Consult order Sodium Chloride (0.9 % Sodium Chloride Flush 3 Ml Syringe) 3 ml IVFLUSH QSHIFT REPLACED BY [facility] Last Admin: 10/29/24 08:28 Dose: 3 ml Documented By: VADIM Labs 10/29/24 06:10 10/29/24 06:10 Labs: Laboratory Results - last 24 hr 10/29/24 10/29/24 10/29/24 06:10 06:10 06:10 MCV 106.5 H MCH 34.7 H MCHC 32.6 RDW 16.4 H Plt Count 72 L D MPV 12.6 H Absolute Nucleated RBC 0.000 Nucleated RBC % (auto) 0.0 Anion Gap 11 L Estim Creat Clear Calc 78.2 75.4 Estimated GFR > 60 > 60 Random Glucose 92 Calcium 9.7 Microbiology Microbiology Results: Microbiology 10/23/24 13:45 Gram Stain - Final Abdominal Fluid Routine Culture - Final No growth after 2 days Anaerobic Culture - Final NO GROWTH AFTER 5 DAYS Assessment and Plan (1) Acute and chronic respiratory failure: Status: Acute (2) Aspiration pneumonia: Status: Acute Assessment and Plan: 54-year-old male with a past medical history of alcohol abuse and dependence and stigmata of chronic liver disease who was brought in by ambulance for what appeared to be intoxication. The patient has been found to have hypoxia requiring 3 L of supplemental oxygen as well as hypotension which has responded to intravenous fluids. He is exhibiting signs of withdrawal and given his hypoxia now will be admitted for further workup and treatment. Acute respiratory failure with hypoxia likely from aspiration PNA, remains hypoxix wean of O2 finish course of Augmentin Acute alcohol withdrawal, no sings of withdrawal. has completed phenobarbital prerenal azotemia vs angelika: resolved. ALcoholic liver disease/cirrhosis with ascietes hepatitis screen and hiv-nonreactive . had paracentesis of 2.7 L removal on 10/23 continue midodrine Pancytpenia--d/t cirrhosis, stable Hyponatremia--d/t cirrhoss, resolved. Hypokalemia--resolved hyponatremia and HypoK and HypoMg-likely dec pointake /liver dis/alcohol intake. Hypokalemia and hypomagnesemia repleted and resolved. Hyponatremia also improving with p.o. intake. mild hypocalemia -calcium levels seems normal when corrected for hypoalbuminemia, resolved. DVT pptx -- mechanical due to thrombocytopenia Wean off O2 Quality Stroke Does the patient have a stroke diagnosis?: No VTE Prior VTE?: No VTE Risk Level:: Medical - moderate - high VTE Device Contraindication: N/A - Device Ordered VTE Drug Contraindication: Treatment Not Tolerated
[2024-10-29] MEDS: Melatonin 3 MG TABLET 6 MG PO (19:56)
[2024-10-30] VITALS (8 sets, daily range): BP systolic 99–131; BP diastolic 52–71; PULSE 81–97; RESP 16–20; TEMP 36.5–37.2; O2SAT 90–96; BMI 22.9
[2024-10-30] MEDS: Thiamine HCL 200 MG in 0.9 % Sodium Chloride 100 ML 204 MG IV ×3 (03:49→20:13)
[2024-10-30] MEDS: Omeprazole 20 MG CAPSULE.DR PO ×2 (06:20→16:22)
[2024-10-30] MEDS: Doxycycline Monohydrate 100 MG CAPSULE PO ×2 (06:20→17:29)
[2024-10-30 07:31] LABS: Creatinine Clr Calc Pharmacy 85.5; Estimated Glomerular Filt Rate > 60
--- NOTE | 2024-10-30 08:35 | P.PNNP_ITS ---
Subjective Subjective Date of Service: 10/30/24 Interval history: 54 y/o old male with a PMH of alcoholic cirrhosis, homelessness- lives behind a liquor store and only medical care is through ED visits for periodic intoxication, does not have a PCP or receive regular medical care. presented 10/20 with alcohol intoxication via EMS. Nephrology consulted for RAVI. creatinine 0.72-0.86 since admission, 10/25 creatinine bumped to 1.12, has been trending down, 10/28 creatinine 1.00, 10/29 creatinine 1.09, 10/[address] in Aug 2023 suggesting cirrhosis, kidneys/ureters unremarkable. platelet counts low, most recent 34, chronic anemia, bilirubin 2.9. patient received paracentesis and removed 2.7L fluid, ascites culture pending; receiving midodrine 5mg PO TID and IV albumin drinks 2-3 beers and half a pint of vodka daily for many years. Denies chest pain, dizziness, shortness of breath Denies abdominal pain, flank pain, difficulty urinating denies other new symptoms/concerns Physical Exam 2 Vital Signs: Vital Signs: Last Vital Signs Temp 98.2 F 10/30/24 07:54 Pulse 97 10/30/24 07:54 Resp 16 10/30/24 07:54 BP 131/71 10/30/24 07:54 Pulse Ox 90 L 10/30/24 07:54 O2 Del Method Nasal Cannula 10/30/24 07:54 O2 Flow Rate 1 10/30/24 07:54 BMI result Body Mass Index 22.9 Const: General: no acute distress, alert and awake Resp: Effort & Inspection: normal respiratory effort and able to speak in complete sentences Auscultation: clear to auscultation bilaterally Cardio: Rate: regular rate Rhythm: regular rhythm Heart sounds: S1 normal heart sound present and S2 normal heart sound present GI: Palpation (GI): Soft to palpation and nontender : General: Yes no CVA tenderness Back/Spine/Pelvis: Back: no CVA tenderness Skin: Rashes: no rashes Extrem: General: No edema Objective Data Labs 10/29/24 06:10 10/30/24 07:07 Labs: Laboratory Results - last 24 hr 10/30/24 07:07 Creatinine 0.88 Estim Creat Clear Calc 85.5 Estimated GFR > 60 Microbiology Microbiology Results: Microbiology 10/23/24 13:45 Abdominal Fluid Gram Stain - Final 10/23/24 13:45 Abdominal Fluid Routine Culture - Final No growth after 2 days 10/23/24 13:45 Abdominal Fluid Anaerobic Culture - Final NO GROWTH AFTER 5 DAYS 10/21/24 05:39 Blood - Venous Blood Culture - Final No growth after 5 days. 10/21/24 05:28 Blood - Venous Blood Culture - Final No growth after 5 days. Procedures Date of Service Date of Service: 10/30/24 Assessment & Plan Assessment and plan (1) RAVI (acute kidney injury): Status: Acute (2) Alcohol use disorder: Status: Acute (3) Alcoholic liver disease: Status: Acute Plan RAVI likely hemodynamic RAVI from fluctuating blood pressures/hypoperfusion from liver disease Improving, creatinine at baseline metabolic acidosis- compensatory, has primary respiratory alkalosis most likely from liver disease. Oral bicarb not indicated. avoid nephrotoxins monitor I&O closely, regular blood pressure checks continue supportive care Will continue to follow Discussed with Dr Mack Time Spent With Patient Time: Total time managing care of this patient today ____ minutes. Progress Note: Quality Stroke Does the patient have a stroke diagnosis?: No
--- NOTE | 2024-10-30 09:22 | P.PNIM_ITS ---
Subjective Subjective Date of Service: 10/30/24 Interval History: f/u on acute hypoxic resp failure d/t aspiration pna still requiring high amount of O2, but weaning Physical Exam 2 Vital Signs: Vital Signs: Last Vital Signs Temp 98.2 F 10/30/24 07:54 Pulse 97 10/30/24 07:54 Resp 16 10/30/24 07:54 BP 131/71 10/30/24 07:54 Pulse Ox 90 L 10/30/24 07:54 O2 Del Method Nasal Cannula 10/30/24 07:54 O2 Flow Rate 1 10/30/24 07:54 BMI result Body Mass Index 22.9 General: AO X 3, no acute distress Resp: CTA bilateral CVS: S1,S2,RRR GI: +BS, NT, slightly distended Skin: No rash Neuro: motor grossly intact Psych: appropriate affect Objective Data Active Medications Acetaminophen (Acetaminophen 325 Mg Tablet) 650 mg PO Q6H PRN PRN Reason: Pain, Mild (Pain Scale 1-3), fever or headache Last Admin: 10/29/24 05:22 Dose: 650 mg Documented By: YONI Amoxicillin/Clavulanate Potassium (Amoxicillin/Potassium Clav 500 Mg Tablet) 500 mg PO Q12H [facility] Last Admin: 10/29/24 21:30 Dose: 500 mg Documented By: GIRMA Calcium Carbonate (Calcium Carbonate 750 Mg Tab.Chew) 750 mg PO Q4H PRN PRN Reason: Heartburn Doxycycline Monohydrate (Doxycycline Monohydrate 100 Mg Capsule) 100 mg PO Q12H [facility] Last Admin: 10/30/24 06:20 Dose: 100 mg Documented By: GIRMA Fluticasone Propionate (Fluticasone Propionate Nasal 16 Gm [place]) 1 spray NOSTRIL-B DAILY [facility] Last Admin: 10/29/24 08:28 Dose: 1 spray Documented By: VADIM Folic Acid (Folic Acid 1 Mg Tablet) 1 mg PO DAILY [facility] Last Admin: 10/29/24 08:25 Dose: 1 mg Documented By: VADIM Thiamine HCl 200 mg/ Sodium (Chloride) 102 mls @ 204 mls/hr IV Q8H [facility] Last Infusion: 10/30/24 04:20 Dose: Infused Documented By: GIRMA Magnesium Hydroxide (Milk Of Magnesia 30 Ml Oral.Susp) 30 ml PO DAILY PRN PRN Reason: Constipation Magnesium Oxide (Magnesium Oxide 400 Mg Tablet) 400 mg PO BIDPC [facility] Last Admin: 10/29/24 17:46 Dose: 400 mg Documented By: VADIM Melatonin (Melatonin 3 Mg Tablet) 6 mg PO BEDTIME PRN PRN Reason: Insomnia Last Admin: 10/29/24 19:56 Dose: 6 mg Documented By: GIRMA Midodrine (Midodrine Hcl 5 Mg Tablet) 5 mg PO TID [facility] Last Admin: 10/29/24 20:07 Dose: Not Given Documented By: GIRMA Non-Admin Reason: 137/62 Multivitamins/Vitamin C (Multivitamin Tablet) 1 tab PO DAILY [facility] Last Admin: 10/29/24 08:24 Dose: 1 tab Documented By: VADIM Omeprazole (Omeprazole 20 Mg Capsule.) 20 mg PO BID@0630,1630 [facility] Last Admin: 10/30/24 06:20 Dose: 20 mg Documented By: GIRMA Pharmacy Consult (Consult Rx Etoh Phenob Im/Po) 1 each MISCELLANE ONCE PRN; Protocol PRN Reason: Consult order Sodium Chloride (0.9 % Sodium Chloride Flush 3 Ml Syringe) 3 ml IVFLUSH QSHIFT [facility] Last Admin: 10/29/24 19:57 Dose: 3 ml Documented By: GIRMA Labs 10/29/24 06:10 10/30/24 07:07 Labs: Laboratory Results - last 24 hr 10/30/24 07:07 Estim Creat Clear Calc 85.5 Estimated GFR > 60 Assessment and Plan (1) Acute and chronic respiratory failure: Status: Acute (2) Aspiration pneumonia: Status: Acute Assessment and Plan: 54-year-old male with a past medical history of alcohol abuse and dependence and stigmata of chronic liver disease who was brought in by ambulance for what appeared to be intoxication. The patient has been found to have hypoxia requiring 3 L of supplemental oxygen as well as hypotension which has responded to intravenous fluids. He is exhibiting signs of withdrawal and given his hypoxia now will be admitted for further workup and treatment. Acute respiratory failure with hypoxia likely from aspiration PNA, remains hypoxix wean of O2 stop abx, has completed more than 7 day Acute alcohol withdrawal, no sings of withdrawal. has completed phenobarbital prerenal azotemia vs angelika: resolved. ALcoholic liver disease/cirrhosis with ascietes hepatitis screen and hiv-nonreactive . had paracentesis of 2.7 L removal on 10/23 continue midodrine Pancytpenia--d/t cirrhosis, stable Hyponatremia--d/t cirrhoss, resolved. Hypokalemia--resolved mild hypocalemia -calcium levels seems normal when corrected for hypoalbuminemia, resolved. DVT pptx -- mechanical due to thrombocytopenia Wean off O2 Quality Stroke Does the patient have a stroke diagnosis?: No VTE Prior VTE?: No VTE Risk Level:: Medical - moderate - high VTE Device Contraindication: N/A - Device Ordered VTE Drug Contraindication: Treatment Not Tolerated
[2024-10-30] MEDS: Multivitamin TABLET 1 TAB PO (09:24)
[2024-10-30] MEDS: Folic Acid 1 MG TABLET PO (09:24)
[2024-10-30] MEDS: Magnesium Oxide 400 MG TABLET PO ×2 (09:24→16:23)
[2024-10-30] MEDS: Amoxicillin/Potassium Clav 500 MG TABLET PO ×2 (09:24→20:13)
[2024-10-30] MEDS: 0.9 % Sodium Chloride Flush 3 ML SYRINGE IVFLUSH ×3 (09:26→20:13)
[2024-10-30] MEDS: Acetaminophen 325 MG TABLET 650 MG PO (11:25)
[2024-10-30 12:42] LABS: Legionella Ag Urine NOT DETECTED; Strep Pneumo Ag urine NOT DETECTED
--- NOTE | 2024-10-30 14:25 | MHC.CM.PN ---
Per rounds, pt. is not yet ready for DC, he is still requiring supplemental O2. CM to follow for DC needs.
[2024-10-30] MEDS: Midodrine HCl 5 MG TABLET PO ×2 (16:23→20:13)
[2024-10-30] MEDS: Melatonin 3 MG TABLET 6 MG PO (20:13)
[2024-10-31 03:10] VITALS: BP 99/60; PULSE 83; RESP 19; TEMP 37.5; O2SAT 95
[2024-10-31] MEDS: Thiamine HCL 200 MG in 0.9 % Sodium Chloride 100 ML 204 MG IV ×2 (04:48→12:41)
[2024-10-31 06:00] VITALS: BMI 21.6
[2024-10-31] MEDS: Doxycycline Monohydrate 100 MG CAPSULE PO (06:17)
[2024-10-31] MEDS: Omeprazole 20 MG CAPSULE.DR PO ×2 (06:17→16:42)
[2024-10-31 07:27] LABS: Estimated Glomerular Filt Rate > 60
[2024-10-31] MEDS: Midodrine HCl 5 MG TABLET PO ×3 (07:51→21:52)
[2024-10-31] MEDS: Magnesium Oxide 400 MG TABLET PO ×2 (07:51→18:51)
[2024-10-31] MEDS: Folic Acid 1 MG TABLET PO (07:51)
[2024-10-31] MEDS: Multivitamin TABLET 1 TAB PO (07:51)
[2024-10-31 07:52] VITALS: BP 95/40; PULSE 80; RESP 16; TEMP 36.9; O2SAT 93
[2024-10-31] MEDS: 0.9 % Sodium Chloride Flush 3 ML SYRINGE IVFLUSH ×2 (07:52→21:53)
--- NOTE | 2024-10-31 08:25 | P.PNNP_ITS ---
Subjective Subjective Date of Service: 10/31/24 Interval history: 54 y/o old male with a PMH of alcoholic cirrhosis, homelessness- lives behind a liquor store and only medical care is through ED visits for periodic intoxication, does not have a PCP or receive regular medical care. presented 10/20 with alcohol intoxication via EMS. Nephrology consulted for RAVI. creatinine 0.72-0.86 since admission, 10/25 creatinine bumped to 1.12, has been trending down, 10/28 creatinine 1.00, 10/29 creatinine 1.09, 10/30 creatinine 0.88, 10/31 creatinine [address] in Aug 2023 suggesting cirrhosis, kidneys/ureters unremarkable. patient received paracentesis and removed 2.7L fluid, ascites culture pending; receiving midodrine 5mg PO TID. drinks 2-3 beers and half a pint of vodka daily for many years. Denies chest pain, dizziness, shortness of breath Denies abdominal pain, flank pain, difficulty urinating denies other new symptoms/concerns Physical Exam 2 Vital Signs: Vital Signs: Last Vital Signs Temp 98.4 F 10/31/24 07:52 Pulse 80 10/31/24 07:52 Resp 16 10/31/24 07:52 BP 95/40 L 10/31/24 07:52 Pulse Ox 93 10/31/24 07:52 O2 Del Method Nasal Cannula 10/31/24 07:52 O2 Flow Rate 2 10/31/24 07:52 BMI result Body Mass Index 21.6 Const: General: no acute distress, alert and awake Resp: Effort & Inspection: normal respiratory effort and able to speak in complete sentences Auscultation: clear to auscultation bilaterally Cardio: Rate: regular rate Rhythm: regular rhythm Heart sounds: S1 normal heart sound present and S2 normal heart sound present GI: Palpation (GI): Soft to palpation and nontender : General: Yes no CVA tenderness Back/Spine/Pelvis: Back: no CVA tenderness Skin: Rashes: no rashes Extrem: General: No edema Objective Data Labs 10/31/24 06:38 10/31/24 06:38 Labs: Laboratory Results - last 24 hr 10/23/24 10/31/24 14:40 06:38 WBC 5.2 RBC 2.13 L Hgb 7.4 L Hct 22.7 L MCV 106.6 H MCH 34.7 H MCHC 32.6 RDW 15.8 Plt Count 82 L MPV 12.6 H Absolute Nucleated RBC 0.000 Nucleated RBC % (auto) 0.0 Hold Purple Top SEE NOTE Creatinine 0.78 Estim Creat Clear Calc 92.0 Estimated GFR > 60 Ur L.pneumophila Ag NOT DETECTED Ur Strep pneumoniae Ag NOT DETECTED Microbiology Microbiology Results: Microbiology 10/23/24 13:45 Abdominal Fluid Gram Stain - Final 10/23/24 13:45 Abdominal Fluid Routine Culture - Final No growth after 2 days 10/23/24 13:45 Abdominal Fluid Anaerobic Culture - Final NO GROWTH AFTER 5 DAYS 10/21/24 05:39 Blood - Venous Blood Culture - Final No growth after 5 days. 10/21/24 05:28 Blood - Venous Blood Culture - Final No growth after 5 days. Procedures Date of Service Date of Service: 10/31/24 Assessment & Plan Assessment and plan (1) RAVI (acute kidney injury): Status: Acute (2) Alcohol use disorder: Status: Acute (3) Alcoholic liver disease: Status: Acute Plan RAVI likely hemodynamic RAVI from fluctuating blood pressures/hypoperfusion from liver disease Resolved metabolic acidosis- compensatory, has primary respiratory alkalosis most likely from liver disease. Oral bicarb not indicated. avoid nephrotoxins monitor I&O closely, regular blood pressure checks continue supportive care Will arrange for outpatient follow up in office to ensure continued resolution post dishcarge. Discussed with Dr Mack Time Spent With Patient Time: Total time managing care of this patient today ____ minutes. Progress Note: Quality Stroke Does the patient have a stroke diagnosis?: No
[2024-10-31 08:35] LABS: Hematocrit 22.7 % (42.0-52.0); Hemoglobin 7.4 g/dl (14.0-18.0); Mean Corpuscular HGB Conc 32.6 g/dl (31.0-36.0); Mean Corpuscular Hemoglobin 34.7 pg (27.0-33.0); Mean Corpuscular Volume 106.6 fL (80.0-98.0); Mean Platelet Volume 12.6 fL (9.4-12.4); Platelet Count 82 X10*3/uL (160-400); Red Blood Count 2.13 X10*6/uL (4.60-5.80); Red Cell Distribution Width 15.8 % (11.0-16.0); White Blood Count 5.2 X10*3/uL (4.8-10.8)
[2024-10-31] MEDS: Amoxicillin/Potassium Clav 500 MG TABLET PO (10:42)
[2024-10-31] MEDS: Fluticasone Propionate Nasal 16 GM SPRAY 1 SPRAY NOSTRIL-B (10:42)
[2024-10-31 11:25] VITALS: BP 106/54; PULSE 78; O2SAT 92
[2024-10-31 11:38] LABS: Iron 73 mcg/dL (45-160); Percent Iron Saturation 66 % (15-50); Total Iron Binding Capacity 110 mcg/dL (228-428); Unsaturated Iron Binding 37 ug/dL
[2024-10-31 11:59] LABS: Ferritin 183 ng/mL (20-250)
--- NOTE | 2024-10-31 14:50 | P.PNIM_ITS ---
Subjective Subjective Date of Service: 10/31/24 Interval History: seen and examined this morning follow up for pneumonia, respiratory failure still requiring supplemental oxygen reporting intermittent cough, no sob; not a great historian Review of Systems Review of Systems: Yes all other systems are reviewed and are negative Constitutional Constitutional: Denies chills and Denies fever(s) Cardiovascular Cardiovascular: Denies chest pain and Denies palpitations Endocrine Endocrine: Denies palpitations Physical Exam 2 Vital Signs: Vital Signs: Last Vital Signs Temp 98.4 F 10/31/24 07:52 Pulse 78 10/31/24 11:25 Resp 16 10/31/24 07:52 BP 106/54 L 10/31/24 11:25 Pulse Ox 92 10/31/24 11:25 O2 Del Method Nasal Cannula 10/31/24 11:25 O2 Flow Rate 2.5 10/31/24 11:25 BMI result Body Mass Index 21.6 Const: General: cooperative, comfortable, alert and awake Nutritional Appearance: average body habitus Resp: Other: no wheeze, or rales Effort & Inspection: normal respiratory effort, able to speak in complete sentences, no respiratory distress and no use of accessory muscles Cardio: Rate: regular rate GI: Inspection: No distended Palpation (GI): Soft to palpation and nontender Neuro: General: moves all extremities and CN's II-XI intact bilaterally Extrem: General: Yes no pedal edema Objective Data Active Medications Acetaminophen (Acetaminophen 325 Mg Tablet) 650 mg PO Q6H PRN PRN Reason: Pain, Mild (Pain Scale 1-3), fever or headache Last Admin: 10/30/24 11:25 Dose: 650 mg Documented By: WILTON Calcium Carbonate (Calcium Carbonate 750 Mg Tab.Chew) 750 mg PO Q4H PRN PRN Reason: Heartburn Fluticasone Propionate (Fluticasone Propionate Nasal 16 Gm [place]) 1 spray NOSTRIL-B DAILY [facility] Last Admin: 10/31/24 10:42 Dose: 1 spray Documented By: MACIEJ Folic Acid (Folic Acid 1 Mg Tablet) 1 mg PO DAILY [facility] Last Admin: 10/31/24 07:51 Dose: 1 mg Documented By: MACIEJ Magnesium Hydroxide (Milk Of Magnesia 30 Ml Oral.Susp) 30 ml PO DAILY PRN PRN Reason: Constipation Magnesium Oxide (Magnesium Oxide 400 Mg Tablet) 400 mg PO BIDPC [facility] Last Admin: 10/31/24 07:51 Dose: 400 mg Documented By: MACIEJ Melatonin (Melatonin 3 Mg Tablet) 6 mg PO BEDTIME PRN PRN Reason: Insomnia Last Admin: 10/30/24 20:13 Dose: 6 mg Documented By: DICKSON Midodrine (Midodrine Hcl 5 Mg Tablet) 5 mg PO TID [facility] Last Admin: 10/31/24 14:22 Dose: 5 mg Documented By: MACIEJ Multivitamins/Vitamin C (Multivitamin Tablet) 1 tab PO DAILY [facility] Last Admin: 10/31/24 07:51 Dose: 1 tab Documented By: MACIEJ Omeprazole (Omeprazole 20 Mg [place].) 20 mg PO BID@0630,1630 [facility] Last Admin: 10/31/24 06:17 Dose: 20 mg Documented By: DICKSON Pharmacy Consult (Consult Rx Etoh Phenob Im/Po) 1 each MISCELLANE ONCE PRN; Protocol PRN Reason: Consult order Sodium Chloride (0.9 % Sodium Chloride Flush 3 Ml Syringe) 3 ml IVFLUSH QSHIFT [facility] Last Admin: 10/31/24 07:52 Dose: 3 ml Documented By: MACIEJ Thiamine HCl (Thiamine Hcl 100 Mg Tablet) 100 mg PO DAILY [facility] Labs 10/31/24 06:38 10/31/24 06:38 Labs: Laboratory Results - last 24 hr 10/31/24 06:38 MCV 106.6 H MCH 34.7 H MCHC 32.6 RDW 15.8 Plt Count 82 L MPV 12.6 H Absolute Nucleated RBC 0.000 Nucleated RBC % (auto) 0.0 Hold Purple Top SEE NOTE Estim Creat Clear Calc 92.0 Estimated GFR > 60 Iron 73 TIBC 110 L % Saturation 66 H Unsat Iron Binding 37 Ferritin 183 Assessment and Plan (1) Acute and chronic respiratory failure: Status: Acute (2) Aspiration pneumonia: Status: Acute Assessment and Plan: This is a 54-year-old male with a past medical history of alcohol abuse and dependence and stigmata of chronic liver disease who was brought in by ambulance for what appeared to be intoxication. The patient has been found to have hypoxia requiring 3 L of supplemental oxygen as well as hypotension which has responded to intravenous fluids. He is exhibiting signs of withdrawal and given his hypoxia now will be admitted for further workup and treatment. Acute respiratory failure with hypoxia likely from aspiration PNA, remains hypoxic attempted to wean O2, was down to 1L now back up to 2.5L NC s/p course of antibiotics will repeat CXR Acute alcohol withdrawal, no sings of withdrawal. has completed phenobarbital transition to po thiamin no interest in discussing etoh abstinence prerenal azotemia vs angelika: resolved. ALcoholic liver disease/cirrhosis with ascites hepatitis screen and hiv-nonreactive had paracentesis of 2.7 L removal on 10/23 continue midodrine Pancytpenia--d/t cirrhosis H/H trending down since admission no acute bleeding noted likely bone marrow suppression from etoh/chronic inflammation as well as acute illness iron 73 check b12, folate Hyponatremia--d/t cirrhoss, resolved. Hypokalemia--resolved mild hypocalemia -calcium levels seems normal when corrected for hypoalbuminemia, resolved. DVT pptx -- mechanical due to thrombocytopenia Quality Stroke Does the patient have a stroke diagnosis?: No VTE Prior VTE?: No VTE Risk Level:: Medical - moderate - high VTE Device Contraindication: N/A - Device Ordered VTE Drug Contraindication: Treatment Not Tolerated
[2024-10-31 15:00] VITALS: BP 119/52; PULSE 79; RESP 19; TEMP 37.2; O2SAT 92
[2024-10-31 19:00] VITALS: BP 105/57; PULSE 81; RESP 24; TEMP 37.7; O2SAT 93
[2024-10-31] MEDS: Melatonin 3 MG TABLET 6 MG PO (21:53)
[2024-10-31 23:00] VITALS: BP 109/56; PULSE 78; RESP 18; TEMP 37.8; O2SAT 94
[2024-11-01] VITALS (8 sets, daily range): BP systolic 99–127; BP diastolic 57–60; PULSE 67–84; RESP 18; TEMP 36.4–37.8; O2SAT 90–93; BMI 22.2
[2024-11-01] MEDS: Omeprazole 20 MG CAPSULE.DR PO ×2 (06:04→15:59)
[2024-11-01] MEDS: Acetaminophen 325 MG TABLET 650 MG PO (06:04)
[2024-11-01 06:42] LABS: Creatinine Clr Calc Pharmacy 94.2; Estimated Glomerular Filt Rate > 60
[2024-11-01 08:00] LABS: Folate 19.2 ng/mL (> or = 4.0); Vitamin B12 1357 pg/mL (200-900)
[2024-11-01] MEDS: Folic Acid 1 MG TABLET PO (08:24)
[2024-11-01] MEDS: Multivitamin TABLET 1 TAB PO (08:24)
[2024-11-01] MEDS: Thiamine HCL 100 MG TABLET PO (08:25)
[2024-11-01] MEDS: Fluticasone Propionate Nasal 16 GM SPRAY 1 SPRAY NOSTRIL-B (08:25)
[2024-11-01] MEDS: Magnesium Oxide 400 MG TABLET PO ×2 (08:25→18:29)
[2024-11-01] MEDS: Midodrine HCl 5 MG TABLET PO ×3 (08:25→20:04)
--- NOTE | 2024-11-01 08:33 | HO.PM.IMPN ---
Subjective Subjective Date of Service: 11/01/24 Interval History: resting in bed, has no acute complaint still on O2 Physical Exam Vital Signs: Vital Signs: Last Vital Signs Temp 98.5 F 11/01/24 07:30 Pulse 67 11/01/24 07:30 Resp 18 11/01/24 07:30 BP 116/57 L 11/01/24 07:30 Pulse Ox 92 11/01/24 07:30 O2 Del Method Nasal Cannula 11/01/24 07:30 O2 Flow Rate 2 11/01/24 07:30 BMI result Body Mass Index 22.2 Const: Other: General: AO X 3, no acute distress Resp: CTA bilateral CVS: S1,S2,RRR GI: +BS, NT, no distention Skin: No rash Neuro: motor grossly intact Psych: appropriate affect Objective Data Active Medications Acetaminophen (Acetaminophen 325 Mg Tablet) 650 mg PO Q6H PRN PRN Reason: Pain, Mild (Pain Scale 1-3), fever or headache Last Admin: 11/01/24 06:04 Dose: 650 mg Documented By: YONI Calcium Carbonate (Calcium Carbonate 750 Mg Tab.Chew) 750 mg PO Q4H PRN PRN Reason: Heartburn Fluticasone Propionate (Fluticasone Propionate Nasal 16 Gm [place]) 1 spray NOSTRIL-B DAILY [facility] Last Admin: 11/01/24 08:25 Dose: 1 spray Documented By: LUCRECIA Folic Acid (Folic Acid 1 Mg Tablet) 1 mg PO DAILY [facility] Last Admin: 11/01/24 08:24 Dose: 1 mg Documented By: LUCRECIA Magnesium Hydroxide (Milk Of Magnesia 30 Ml Oral.Susp) 30 ml PO DAILY PRN PRN Reason: Constipation Magnesium Oxide (Magnesium Oxide 400 Mg Tablet) 400 mg PO BIDPC [facility] Last Admin: 11/01/24 08:25 Dose: 400 mg Documented By: LUCRECIA Melatonin (Melatonin 3 Mg Tablet) 6 mg PO BEDTIME PRN PRN Reason: Insomnia Last Admin: 10/31/24 21:53 Dose: 6 mg Documented By: YONI Midodrine (Midodrine Hcl 5 Mg Tablet) 5 mg PO TID [facility] Last Admin: 11/01/24 08:25 Dose: 5 mg Documented By: LUCRECIA Multivitamins/Vitamin C (Multivitamin Tablet) 1 tab PO DAILY [facility] Last Admin: 11/01/24 08:24 Dose: 1 tab Documented By: LUCRECIA Omeprazole (Omeprazole 20 Mg Capsule.) 20 mg PO BID@0630,7070 [facility] Last Admin: 11/01/24 06:04 Dose: 20 mg Documented By: YONI Pharmacy Consult (Consult Rx Etoh Phenob Im/Po) 1 each MISCELLANE ONCE PRN; Protocol PRN Reason: Consult order Sodium Chloride (0.9 % Sodium Chloride Flush 3 Ml Syringe) 3 ml IVFLUSH QSHIFT [facility] Last Admin: 11/01/24 08:27 Dose: Not Given Documented By: LUCRECIA Non-Admin Reason: No Access Thiamine HCl (Thiamine Hcl 100 Mg Tablet) 100 mg PO DAILY [facility] Last Admin: 11/01/24 08:25 Dose: 100 mg Documented By: LUCRECIA Labs 10/31/24 06:38 11/01/24 05:48 Labs: Laboratory Results - last 24 hr 10/31/24 11/01/24 11/01/24 06:38 05:48 06:48 MCV 106.6 H MCH 34.7 H MCHC 32.6 RDW 15.8 Plt Count 82 L MPV 12.6 H Absolute Nucleated RBC 0.000 Nucleated RBC % (auto) 0.0 Estim Creat Clear Calc 94.2 Estimated GFR > 60 Iron 73 TIBC 110 L % Saturation 66 H Unsat Iron Binding 37 Ferritin 183 Vitamin B12 1357 H Folate 19.2 Assessment and Plan (1) Aspiration pneumonia: Status: Acute Assessment and Plan: This is a 54-year-old male with a past medical history of alcohol abuse and dependence and stigmata of chronic liver disease who was brought in by ambulance for what appeared to be intoxication. The patient has been found to have hypoxia requiring 3 L of supplemental oxygen as well as hypotension which has responded to intravenous fluids. He is exhibiting signs of withdrawal and given his hypoxia now will be admitted for further workup and treatment. Acute respiratory failure with hypoxia likely from aspiration PNA, remains hypoxic continue weaning off O2 completed course of antibiotics for PNA Acute alcohol withdrawal, no withdrawal symptoms has completed phenobarbital thiamine, prerenal azotemia vs angelika: resolved. ALcoholic liver disease/cirrhosis with ascites hepatitis screen and hiv-nonreactive had paracentesis of 2.7 L removal on 10/23 continue midodrine Pancytpenia--d/t cirrhosis H/H trending down since admission no acute bleeding noted likely bone marrow suppression from etoh/chronic inflammation as well as acute illness iron 73 check b12, folate Hyponatremia--d/t cirrhoss, resolved. Hypokalemia--resolved mild hypocalemia -calcium levels seems normal when corrected for hypoalbuminemia, resolved. DVT pptx -- mechanical due to thrombocytopenia Out of bed, ambulate Quality Stroke Does the patient have a stroke diagnosis?: No VTE Prior VTE?: No VTE Risk Level:: Medical - moderate - high VTE Device Contraindication: N/A - Device Ordered VTE Drug Contraindication: Treatment Not Tolerated
--- NOTE | 2024-11-01 11:37 | PC.NURSE ---
Ambulated x [address] with on RA , oxygen saturation down to mid 87 -88% with ambulation , pt denied sob, no chest pain ,
--- NOTE | 2024-11-01 13:15 | MHC.CM.PN ---
Per rounds, pt. is still requiring supplemental O2. DCP: return to street. CM to follow.
--- NOTE | 2024-11-01 13:42 | PC.NURSE ---
Incentive spirometry used 10 times up to 1050 volume
--- NOTE | 2024-11-01 15:05 | MHC.CM.PN ---
Cm asked pt. if he wanted to go to a fdc when he is DC. He said he was at a fdc before in [place], and that he does not want to go to one at this time.
[2024-11-02] VITALS (11 sets, daily range): BP systolic 108–120; BP diastolic 57–60; PULSE 73–82; RESP 14–19; TEMP 36.6–37.3; O2SAT 88–95; BMI 22.5
[2024-11-02] MEDS: Omeprazole 20 MG CAPSULE.DR PO ×2 (06:10→16:56)
[2024-11-02 06:50] LABS: Creatinine Clr Calc Pharmacy 95.6; Estimated Glomerular Filt Rate > 60
[2024-11-02] MEDS: Magnesium Oxide 400 MG TABLET PO ×2 (08:21→16:56)
[2024-11-02] MEDS: Midodrine HCl 5 MG TABLET PO ×3 (08:21→20:42)
[2024-11-02] MEDS: Multivitamin TABLET 1 TAB PO (08:21)
[2024-11-02] MEDS: Folic Acid 1 MG TABLET PO (08:21)
[2024-11-02] MEDS: Thiamine HCL 100 MG TABLET PO (08:21)
[2024-11-02] MEDS: Fluticasone Propionate Nasal 16 GM SPRAY 1 SPRAY NOSTRIL-B (08:21)
--- NOTE | 2024-11-02 10:35 | HO.PM.IMPN ---
Subjective Subjective Date of Service: 11/02/24 Interval History: resting in bed, has no acute complaint still on O2 and hasn't been able to wean Physical Exam Vital Signs: Vital Signs: Last Vital Signs Temp 99.1 F 11/02/24 07:44 Pulse 73 11/02/24 07:44 Resp 14 11/02/24 07:44 BP 119/58 L 11/02/24 07:44 Pulse Ox 94 11/02/24 07:44 O2 Del Method Nasal Cannula, Hu midified O2 11/02/24 07:44 O2 Flow Rate 2 11/02/24 07:44 BMI result Body Mass Index 22.5 Const: Other: General: AO X 3, no acute distress Resp: CTA bilateral CVS: S1,S2,RRR GI: +BS, NT, no distention Skin: No rash Neuro: motor grossly intact Psych: appropriate affect Objective Data Active Medications Acetaminophen (Acetaminophen 325 Mg Tablet) 650 mg PO Q6H PRN PRN Reason: Pain, Mild (Pain Scale 1-3), fever or headache Last Admin: 11/01/24 06:04 Dose: 650 mg Documented By: YONI Calcium Carbonate (Calcium Carbonate 750 Mg Tab.Chew) 750 mg PO Q4H PRN PRN Reason: Heartburn Fluticasone Propionate (Fluticasone Propionate Nasal 16 Gm [place]) 1 spray NOSTRIL-B DAILY [facility] BEDS AT [facility] Last Admin: 11/02/24 08:21 Dose: 1 spray Documented By: SHAAN Folic Acid (Folic Acid 1 Mg Tablet) 1 mg PO DAILY [facility] 234 BEDS AT [facility] Last Admin: 11/02/24 08:21 Dose: 1 mg Documented By: SHAAN Magnesium Hydroxide (Milk Of Magnesia 30 Ml Oral.Susp) 30 ml PO DAILY PRN PRN Reason: Constipation Magnesium Oxide (Magnesium Oxide 400 Mg Tablet) 400 mg PO BIDPC [facility] 234 BEDS AT [facility] Last Admin: 11/02/24 08:21 Dose: 400 mg Documented By: SHAAN Melatonin (Melatonin 3 Mg Tablet) 6 mg PO BEDTIME PRN PRN Reason: Insomnia Last Admin: 10/31/24 21:53 Dose: 6 mg Documented By: YONI Midodrine (Midodrine Hcl 5 Mg Tablet) 5 mg PO TID [facility] 234 BEDS AT [facility] Last Admin: 11/02/24 08:21 Dose: 5 mg Documented By: SHAAN Multivitamins/Vitamin C (Multivitamin Tablet) 1 tab PO DAILY [facility] 234 BEDS AT [facility] Last Admin: 11/02/24 08:21 Dose: 1 tab Documented By: SHAAN Omeprazole (Omeprazole 20 Mg [place].) 20 mg PO BID@0630,1630 [facility] 234 BEDS AT [facility] Last Admin: 11/02/24 06:10 Dose: 20 mg Documented By: JULIANA Pharmacy Consult (Consult Rx Etoh Phenob Im/Po) 1 each MISCELLANE ONCE PRN; Protocol PRN Reason: Consult order Sodium Chloride (0.9 % Sodium Chloride Flush 3 Ml Syringe) 3 ml IVFLUSH QSHIFT [facility] 234 BEDS AT [facility] Last Admin: 11/02/24 08:22 Dose: Not Given Documented By: SHAAN Non-Admin Reason: No Access Thiamine HCl (Thiamine Hcl 100 Mg Tablet) 100 mg PO DAILY [facility] 234 BEDS AT [facility] Last Admin: 11/02/24 08:21 Dose: 100 mg Documented By: SHAAN Labs 10/31/24 06:38 11/02/24 05:49 Labs: Laboratory Results - last 24 hr 11/02/24 05:49 Hold Purple Top SEE NOTE Estim Creat Clear Calc 95.6 Estimated GFR > 60 Assessment and Plan (1) Aspiration pneumonia: Status: Acute Assessment and Plan: This is a 54-year-old male with a past medical history of alcohol abuse and dependence and stigmata of chronic liver disease who was brought in by ambulance for what appeared to be intoxication. The patient has been found to have hypoxia requiring 3 L of supplemental oxygen as well as hypotension which has responded to intravenous fluids. He is exhibiting signs of withdrawal and given his hypoxia now will be admitted for further workup and treatment. Acute respiratory failure with hypoxia likely from aspiration PNA, remains hypoxic continue weaning off O2 completed course of antibiotics for PNA Icentive spirometry Acute alcohol withdrawal, no withdrawal symptoms has completed phenobarbital thiamine, prerenal azotemia vs angelika: resolved. ALcoholic liver disease/cirrhosis with ascites hepatitis screen and hiv-nonreactive had paracentesis of 2.7 L removal on 10/23 continue midodrine Pancytpenia--d/t cirrhosis H/H trending down since admission no acute bleeding noted likely bone marrow suppression from etoh/chronic inflammation as well as acute illness iron 73 check b12, folate Hyponatremia--d/t cirrhoss, resolved. Hypokalemia--resolved mild hypocalemia -calcium levels seems normal when corrected for hypoalbuminemia, resolved. DVT pptx -- mechanical due to thrombocytopenia Out of bed, ambulate Quality Stroke Does the patient have a stroke diagnosis?: No VTE Prior VTE?: No VTE Risk Level:: Medical - moderate - high VTE Device Contraindication: N/A - Device Ordered VTE Drug Contraindication: Treatment Not Tolerated
[2024-11-02 10:45] LABS: MANUAL DIFF FLAG NO
[2024-11-02 10:51] LABS: Anion Gap 13 (12-20)
[2024-11-02 10:54] LABS: Blood Urea Nitrogen 20 mg/dL (9-16); Calcium 9.3 mg/dL (8.4-10.2); Carbon Dioxide 18 mmol/L (22-29); Chloride 112 mmol/L (96-108); Glucose Random 82 mg/dL (60-115); Potassium 4.7 mmol/L (3.3-5.1); Sodium 138 mmol/L (135-145)
[2024-11-02 11:08] LABS: Basophils Absolute Auto 0.1 X10*3/uL (0.0-0.2); Basophils Percent Auto 1.7 % (0-2); Eosinophils Absolute Auto 0.1 X10*3/uL (0.0-0.4); Eosinophils Percent Auto 2.2 % (0-4); Hematocrit 22.5 % (42.0-52.0); Hemoglobin 7.3 g/dl (14.0-18.0); Imm Gran Abs Auto 0.04 X10*3/uL (0.00-0.03); Imm Gran Pct Auto 0.7 % (0.0-0.4); Lymphocytes Percent Auto 17.7 % (20-40); Mean Corpuscular HGB Conc 32.4 g/dl (31.0-36.0); Mean Corpuscular Hemoglobin 35.1 pg (27.0-33.0); Mean Corpuscular Volume 108.2 fL (80.0-98.0); Mean Platelet Volume 12.9 fL (9.4-12.4); Monocytes Absolute Auto 0.5 X10*3/uL (0.1-1.2); Monocytes Percent Auto 9.9 % (2-11); Neutrophils Absolute Auto 3.7 x10*3/uL (2.0-8.3); Neutrophils Percent Auto 67.8 % (45-73); Red Blood Count 2.08 X10*6/uL (4.60-5.80); Red Cell Distribution Width 15.4 % (11.0-16.0); White Blood Count 5.4 X10*3/uL (4.8-10.8)
[2024-11-02 11:09] LABS: Platelet Count 89 X10*3/uL (160-400)
[2024-11-03] VITALS (9 sets, daily range): BP systolic 100–144; BP diastolic 44–68; PULSE 75–90; RESP 16–20; TEMP 37–37.4; O2SAT 92–100; BMI 22.5
[2024-11-03] MEDS: Omeprazole 20 MG CAPSULE.DR PO ×2 (06:26→15:50)
[2024-11-03 07:14] LABS: Creatinine Clr Calc Pharmacy 88.6; Estimated Glomerular Filt Rate > 60
[2024-11-03] MEDS: Multivitamin TABLET 1 TAB PO (09:43)
[2024-11-03] MEDS: Thiamine HCL 100 MG TABLET PO (09:43)
[2024-11-03] MEDS: Midodrine HCl 5 MG TABLET PO ×3 (09:43→20:29)
[2024-11-03] MEDS: Folic Acid 1 MG TABLET PO (09:43)
[2024-11-03] MEDS: Magnesium Oxide 400 MG TABLET PO ×2 (09:43→18:29)
[2024-11-03] MEDS: Fluticasone Propionate Nasal 16 GM SPRAY 1 SPRAY NOSTRIL-B (09:47)
--- NOTE | 2024-11-03 11:23 | HO.PM.IMPN ---
Subjective Subjective Date of Service: 11/03/24 Interval History: resting in bed, has no acute complaint still on O2 and hasn't been able to wean completly but he is feeling better Physical Exam Vital Signs: Vital Signs: Last Vital Signs Temp 99.4 F 11/03/24 08:13 Pulse 80 11/03/24 08:13 Resp 20 11/03/24 08:13 BP 122/59 L 11/03/24 08:13 Pulse Ox 92 11/03/24 08:13 O2 Del Method Nasal Cannula 11/03/24 08:13 O2 Flow Rate 2 11/03/24 08:13 BMI result Body Mass Index 22.5 Const: Other: General: AO X 3, no acute distress Resp: CTA bilateral CVS: S1,S2,RRR GI: +BS, NT, no distention Skin: No rash Neuro: motor grossly intact Psych: appropriate affect Objective Data Active Medications Acetaminophen (Acetaminophen 325 Mg Tablet) 650 mg PO Q6H PRN PRN Reason: Pain, Mild (Pain Scale 1-3), fever or headache Last Admin: 11/01/24 06:04 Dose: 650 mg Documented By: YOIN Calcium Carbonate (Calcium Carbonate 750 Mg Tab.Chew) 750 mg PO Q4H PRN PRN Reason: Heartburn Fluticasone Propionate (Fluticasone Propionate Nasal 16 Gm [place]) 1 spray NOSTRIL-B DAILY [facility] Last Admin: 11/03/24 09:47 Dose: 1 spray Documented By: LETA Folic Acid (Folic Acid 1 Mg Tablet) 1 mg PO DAILY [facility] Last Admin: 11/03/24 09:43 Dose: 1 mg Documented By: LETA Magnesium Hydroxide (Milk Of Magnesia 30 Ml Oral.Susp) 30 ml PO DAILY PRN PRN Reason: Constipation Magnesium Oxide (Magnesium Oxide 400 Mg Tablet) 400 mg PO BIDPC [facility] Last Admin: 11/03/24 09:43 Dose: 400 mg Documented By: LETA Melatonin (Melatonin 3 Mg Tablet) 6 mg PO BEDTIME PRN PRN Reason: Insomnia Last Admin: 10/31/24 21:53 Dose: 6 mg Documented By: YONI Midodrine (Midodrine Hcl 5 Mg Tablet) 5 mg PO TID [facility] Last Admin: 11/03/24 09:43 Dose: 5 mg Documented By: LETA Multivitamins/Vitamin C (Multivitamin Tablet) 1 tab PO DAILY [facility] Last Admin: 11/03/24 09:43 Dose: 1 tab Documented By: LETA Omeprazole (Omeprazole 20 Mg [place].) 20 mg PO BID@0630,1630 [facility] Last Admin: 11/03/24 06:26 Dose: 20 mg Documented By: JULIANA Pharmacy Consult (Consult Rx Etoh Phenob Im/Po) 1 each MISCELLANE ONCE PRN; Protocol PRN Reason: Consult order Sodium Chloride (0.9 % Sodium Chloride Flush 3 Ml Syringe) 3 ml IVFLUSH QSHIFT [facility] Last Admin: 11/03/24 09:44 Dose: Not Given Documented By: LETA Non-Admin Reason: No Access Thiamine HCl (Thiamine Hcl 100 Mg Tablet) 100 mg PO DAILY [facility] Last Admin: 11/03/24 09:43 Dose: 100 mg Documented By: LETA Labs 11/02/24 05:49 11/03/24 06:46 Labs: Laboratory Results - last 24 hr 11/03/24 06:46 Estim Creat Clear Calc 88.6 Estimated GFR > 60 Assessment and Plan (1) Aspiration pneumonia: Status: Acute Assessment and Plan: This is a 54-year-old male with a past medical history of alcohol abuse and dependence and stigmata of chronic liver disease who was brought in by ambulance for what appeared to be intoxication. The patient has been found to have hypoxia requiring 3 L of supplemental oxygen as well as hypotension which has responded to intravenous fluids. He is exhibiting signs of withdrawal and given his hypoxia now will be admitted for further workup and treatment. Acute respiratory failure with hypoxia likely from aspiration PNA, remains hypoxic continue weaning off O2 completed course of antibiotics for PNA Icentive spirometry Acute alcohol withdrawal, no withdrawal symptoms has completed phenobarbital thiamine, prerenal azotemia vs angelika: resolved. ALcoholic liver disease/cirrhosis with ascites hepatitis screen and hiv-nonreactive had paracentesis of 2.7 L removal on 10/23 continue midodrine Pancytpenia--d/t cirrhosis H/H trending down since admission no acute bleeding noted likely bone marrow suppression from etoh/chronic inflammation as well as acute illness iron 73 check b12, folate Hyponatremia--d/t cirrhoss, resolved. Hypokalemia--resolved mild hypocalemia -calcium levels seems normal when corrected for hypoalbuminemia, resolved. DVT pptx -- mechanical due to thrombocytopenia Out of bed, ambulate with staff Quality Stroke Does the patient have a stroke diagnosis?: No VTE Prior VTE?: No VTE Risk Level:: Medical - moderate - high VTE Device Contraindication: N/A - Device Ordered VTE Drug Contraindication: Treatment Not Tolerated
[2024-11-04 03:05] VITALS: BP 114/52; PULSE 80; RESP 16; TEMP 36.8; O2SAT 92
[2024-11-04 05:42] VITALS: BMI 21.7
[2024-11-04] MEDS: Omeprazole 20 MG CAPSULE.DR PO ×2 (05:45→16:56)
[2024-11-04 07:30] VITALS: BP 110/57; PULSE 80; RESP 16; TEMP 37.1; O2SAT 95
--- NOTE | 2024-11-04 08:30 | P.PNIM_ITS ---
Subjective Subjective Date of Service: 11/04/24 Interval History: resting in bed, has no acute complaint still on O2 and hasn't been able to wean completly but he is feeling better Physical Exam 2 Vital Signs: Vital Signs: Last Vital Signs Temp 98.7 F 11/04/24 07:30 Pulse 80 11/04/24 07:30 Resp 16 11/04/24 07:30 BP 110/57 L 11/04/24 07:30 Pulse Ox 95 11/04/24 07:30 O2 Del Method Nasal Cannula 11/04/24 07:30 O2 Flow Rate 1.5 11/04/24 07:30 BMI result Body Mass Index 21.7 Const: Other: General: AO X 3, no acute distress Resp: CTA bilateral CVS: S1,S2,RRR GI: +BS, NT, no distention Skin: No rash Neuro: motor grossly intact Psych: appropriate affect Objective Data Active Medications Acetaminophen (Acetaminophen 325 Mg Tablet) 650 mg PO Q6H PRN PRN Reason: Pain, Mild (Pain Scale 1-3), fever or headache Last Admin: 11/01/24 06:04 Dose: 650 mg Documented By: YONI Calcium Carbonate (Calcium Carbonate 750 Mg Tab.Chew) 750 mg PO Q4H PRN PRN Reason: Heartburn Fluticasone Propionate (Fluticasone Propionate Nasal 16 Gm [place]) 1 spray NOSTRIL-B DAILY [facility] Last Admin: 11/03/24 09:47 Dose: 1 spray Documented By: LETA Folic Acid (Folic Acid 1 Mg Tablet) 1 mg PO DAILY [facility] Last Admin: 11/03/24 09:43 Dose: 1 mg Documented By: LETA Magnesium Hydroxide (Milk Of Magnesia 30 Ml Oral.Susp) 30 ml PO DAILY PRN PRN Reason: Constipation Magnesium Oxide (Magnesium Oxide 400 Mg Tablet) 400 mg PO BIDPC [facility] Last Admin: 11/03/24 18:29 Dose: 400 mg Documented By: LETA Melatonin (Melatonin 3 Mg Tablet) 6 mg PO BEDTIME PRN PRN Reason: Insomnia Last Admin: 10/31/24 21:53 Dose: 6 mg Documented By: YONI Midodrine (Midodrine Hcl 5 Mg Tablet) 5 mg PO TID [facility] Last Admin: 11/03/24 20:29 Dose: 5 mg Documented By: DICKSON Multivitamins/Vitamin C (Multivitamin Tablet) 1 tab PO DAILY [facility] Last Admin: 11/03/24 09:43 Dose: 1 tab Documented By: LETA Omeprazole (Omeprazole 20 Mg [place]nell.) 20 mg PO BID@0630,1630 [facility] Last Admin: 11/04/24 05:45 Dose: 20 mg Documented By: DICKSON Pharmacy Consult (Consult Rx Etoh Phenob Im/Po) 1 each MISCELLANE ONCE PRN; Protocol PRN Reason: Consult order Sodium Chloride (0.9 % Sodium Chloride Flush 3 Ml Syringe) 3 ml IVFLUSH QSHIFT [facility] Last Admin: 11/04/24 07:41 Dose: Not Given Documented By: LETA Non-Admin Reason: No Access Thiamine HCl (Thiamine Hcl 100 Mg Tablet) 100 mg PO DAILY [facility] Last Admin: 11/03/24 09:43 Dose: 100 mg Documented By: LETA Labs 11/02/24 05:49 11/03/24 06:46 Assessment and Plan (1) Aspiration pneumonia: Status: Acute Assessment and Plan: This is a 54-year-old male with a past medical history of alcohol abuse and dependence and stigmata of chronic liver disease who was brought in by ambulance for what appeared to be intoxication. The patient has been found to have hypoxia requiring 3 L of supplemental oxygen as well as hypotension which has responded to intravenous fluids. He is exhibiting signs of withdrawal and given his hypoxia now will be admitted for further workup and treatment. Acute respiratory failure with hypoxia likely from aspiration PNA, remains hypoxic continue weaning off O2, and goal of dc without O2 as he will need to go to jail completed course of antibiotics for PNA Icentive spirometry home O2 eval Acute alcohol withdrawal, no withdrawal symptoms has completed phenobarbital thiamine, prerenal azotemia vs angelika: resolved. ALcoholic liver disease/cirrhosis with ascites hepatitis screen and hiv-nonreactive had paracentesis of 2.7 L removal on 10/23 continue midodrine Pancytpenia--d/t cirrhosis H/H trending down since admission no acute bleeding noted likely bone marrow suppression from etoh/chronic inflammation as well as acute illness iron 73 check b12, folate Hyponatremia--d/t cirrhoss, resolved. Hypokalemia--resolved mild hypocalemia -calcium levels seems normal when corrected for hypoalbuminemia, resolved. DVT pptx -- mechanical due to thrombocytopenia Out of bed, ambulate with staff Quality Stroke Does the patient have a stroke diagnosis?: No VTE Prior VTE?: No VTE Risk Level:: Medical - moderate - high VTE Device Contraindication: N/A - Device Ordered VTE Drug Contraindication: Treatment Not Tolerated
[2024-11-04] MEDS: Multivitamin TABLET 1 TAB PO (09:41)
[2024-11-04] MEDS: Magnesium Oxide 400 MG TABLET PO ×2 (09:41→16:56)
[2024-11-04] MEDS: Fluticasone Propionate Nasal 16 GM SPRAY 1 SPRAY NOSTRIL-B (09:41)
[2024-11-04] MEDS: Midodrine HCl 5 MG TABLET PO ×3 (09:41→19:43)
[2024-11-04] MEDS: Folic Acid 1 MG TABLET PO (09:41)
[2024-11-04] MEDS: Thiamine HCL 100 MG TABLET PO (09:41)
--- NOTE | 2024-11-04 10:29 | MHC.CM.PN ---
EMR REVIEWED, CM MET W/PT TO DISCUSS DISPO, PT ADAMANTLY REFUSING STR OR HALF-WAY PLACEMENT AND INSISTS HE WILL RETURN TO STREET, ANTIC PT WILL REMAIN INPT TO WEAN OFF O2, CM WILL CONT TO FOLLOW DC NEEDS.
[2024-11-04 11:22] VITALS: BP 135/60; PULSE 86; RESP 16; TEMP 36.6; O2SAT 96
[2024-11-04 15:44] VITALS: BP 112/52; PULSE 84; RESP 17; TEMP 37.7; O2SAT 91
[2024-11-04 19:41] VITALS: BP 82/43; PULSE 81; RESP 19; TEMP 36.9; O2SAT 94
[2024-11-04] MEDS: Acetaminophen 325 MG TABLET 650 MG PO (19:43)
[2024-11-04 22:54] VITALS: BP 94/55; PULSE 73; RESP 16; TEMP 37.1; O2SAT 91
[2024-11-05 03:00] VITALS: BP 102/57; PULSE 76; RESP 18; TEMP 36.9; O2SAT 93
[2024-11-05 06:00] VITALS: BMI 21.9
[2024-11-05] MEDS: Omeprazole 20 MG CAPSULE.DR PO ×2 (06:17→15:20)
[2024-11-05 07:00] VITALS: BP 111/59; PULSE 73; RESP 18; TEMP 37.1; O2SAT 94
[2024-11-05] MEDS: Folic Acid 1 MG TABLET PO (08:05)
[2024-11-05] MEDS: Thiamine HCL 100 MG TABLET PO (08:05)
[2024-11-05] MEDS: Multivitamin TABLET 1 TAB PO (08:05)
[2024-11-05] MEDS: Midodrine HCl 5 MG TABLET PO ×3 (08:05→20:38)
[2024-11-05] MEDS: Fluticasone Propionate Nasal 16 GM SPRAY 1 SPRAY NOSTRIL-B (08:05)
[2024-11-05] MEDS: Magnesium Oxide 400 MG TABLET PO ×2 (08:05→17:07)
--- NOTE | 2024-11-05 10:26 | P.PNIM_ITS ---
Subjective Subjective Date of Service: 11/05/24 Interval History: resting in bed, feels little better still on O2 supplement no other complaints Review of Systems Review of Systems: Yes all other systems are reviewed and are negative Physical Exam 2 Vital Signs: Vital Signs: Last Vital Signs Temp 98.7 F 11/05/24 07:00 Pulse 73 11/05/24 07:00 Resp 18 11/05/24 07:00 BP 111/59 L 11/05/24 07:00 Pulse Ox 94 11/05/24 07:00 O2 Del Method Nasal Cannula 11/05/24 07:00 O2 Flow Rate 1 11/05/24 07:00 BMI result Body Mass Index 21.9 Const: Other: General: no acute distress Resp: CTA bilateral CVS: S1,S2,RRR GI: +BS, NT, no distention Skin: No rash Neuro: motor grossly intact Psych: appropriate affect Objective Data Active Medications Acetaminophen (Acetaminophen 325 Mg Tablet) 650 mg PO Q6H PRN PRN Reason: Pain, Mild (Pain Scale 1-3), fever or headache Last Admin: 11/04/24 19:43 Dose: 650 mg Documented By: DIOMEDES Calcium Carbonate (Calcium Carbonate 750 Mg Tab.Chew) 750 mg PO Q4H PRN PRN Reason: Heartburn Fluticasone Propionate (Fluticasone Propionate Nasal 16 Gm [place]) 1 spray NOSTRIL-B DAILY [facility] Last Admin: 11/05/24 08:05 Dose: 1 spray Documented By: SHAAN Folic Acid (Folic Acid 1 Mg Tablet) 1 mg PO DAILY [facility] Last Admin: 11/05/24 08:05 Dose: 1 mg Documented By: SHAAN Magnesium Hydroxide (Milk Of Magnesia 30 Ml Oral.Susp) 30 ml PO DAILY PRN PRN Reason: Constipation Magnesium Oxide (Magnesium Oxide 400 Mg Tablet) 400 mg PO BIDPC [facility] Last Admin: 11/05/24 08:05 Dose: 400 mg Documented By: SHAAN Melatonin (Melatonin 3 Mg Tablet) 6 mg PO BEDTIME PRN PRN Reason: Insomnia Last Admin: 10/31/24 21:53 Dose: 6 mg Documented By: YONI Midodrine (Midodrine Hcl 5 Mg Tablet) 5 mg PO TID [facility] Last Admin: 11/05/24 08:05 Dose: 5 mg Documented By: SHAAN Multivitamins/Vitamin C (Multivitamin Tablet) 1 tab PO DAILY [facility] Last Admin: 11/05/24 08:05 Dose: 1 tab Documented By: SHAAN Omeprazole (Omeprazole 20 Mg Donnell.) 20 mg PO BID@0630,1630 [facility] Last Admin: 11/05/24 06:17 Dose: 20 mg Documented By: DIOMEDES Pharmacy Consult (Consult Rx Etoh Phenob Im/Po) 1 each MISCELLANE ONCE PRN; Protocol PRN Reason: Consult order Sodium Chloride (0.9 % Sodium Chloride Flush 3 Ml Syringe) 3 ml IVFLUSH QSHIFT [facility] Last Admin: 11/05/24 08:05 Dose: Not Given Documented By: SHAAN Non-Admin Reason: No Access Thiamine HCl (Thiamine Hcl 100 Mg Tablet) 100 mg PO DAILY [facility] Last Admin: 11/05/24 08:05 Dose: 100 mg Documented By: SHAAN Labs 11/02/24 05:49 11/03/24 06:46 Assessment and Plan (1) Aspiration pneumonia: Status: Acute Assessment and Plan: This is a 54-year-old male with a past medical history of alcohol abuse and dependence and stigmata of chronic liver disease who was brought in by ambulance for what appeared to be intoxication. The patient has been found to have hypoxia requiring 3 L of supplemental oxygen as well as hypotension which has responded to intravenous fluids. He is exhibiting signs of withdrawal and given his hypoxia now will be admitted for further workup and treatment. Acute respiratory failure with hypoxia likely from aspiration PNA, remains hypoxic continue weaning off O2, and goal of dc without O2 as he will need to go to halfway (patient wants to go back to streets) completed course of antibiotics for PNA Incentive spirometry Wean O2 down as tolerated, goal to wean off as he is unlikely to get Home O2 Acute alcohol withdrawal, no withdrawal symptoms has completed phenobarbital thiamine prerenal azotemia vs angelika: resolved. ALcoholic liver disease/cirrhosis with ascites hepatitis screen and hiv-nonreactive had paracentesis of 2.7 L removal on 10/23 continue midodrine Pancytpenia--d/t cirrhosis H/H trending down since admission no acute bleeding noted likely bone marrow suppression from etoh/chronic inflammation as well as acute illness iron 73 b12, folate Hyponatremia--d/t cirrhoss, resolved. Hypokalemia--resolved mild hypocalemia -calcium levels seems normal when corrected for hypoalbuminemia, resolved. DVT pptx -- mechanical due to thrombocytopenia Out of bed, ambulate with staff (2) Alcoholic liver disease: Status: Acute Quality Stroke Does the patient have a stroke diagnosis?: No VTE Prior VTE?: No VTE Risk Level:: Medical - moderate - high VTE Device Contraindication: N/A - Device Ordered VTE Drug Contraindication: Treatment Not Tolerated
[2024-11-05 11:00] VITALS: BP 99/41; PULSE 76; RESP 18; TEMP 37.8; O2SAT 96
[2024-11-05 15:00] VITALS: BP 101/40; PULSE 83; RESP 18; TEMP 37.7; O2SAT 94
[2024-11-05 19:00] VITALS: BP 101/58; PULSE 88; RESP 20; TEMP 36.4; O2SAT 91
[2024-11-05] MEDS: Acetaminophen 325 MG TABLET 650 MG PO (20:38)
[2024-11-05] MEDS: Melatonin 3 MG TABLET 6 MG PO (20:38)
[2024-11-06] VITALS (7 sets, daily range): BP systolic 90–109; BP diastolic 40–58; PULSE 71–94; RESP 16–20; TEMP 36.2–37.7; O2SAT 92–98; BMI 20.7
[2024-11-06] MEDS: Folic Acid 1 MG TABLET PO (08:42)
[2024-11-06] MEDS: Thiamine HCL 100 MG TABLET PO (08:42)
[2024-11-06] MEDS: Fluticasone Propionate Nasal 16 GM SPRAY 1 SPRAY NOSTRIL-B (08:42)
[2024-11-06] MEDS: Magnesium Oxide 400 MG TABLET PO ×2 (08:42→18:00)
[2024-11-06] MEDS: Midodrine HCl 5 MG TABLET PO ×3 (08:42→19:55)
[2024-11-06] MEDS: Multivitamin TABLET 1 TAB PO (08:42)
--- NOTE | 2024-11-06 12:55 | HO.PM.IMPN ---
Subjective Subjective Date of Service: 11/06/24 Interval History: resting in bed, feels little better still on O2 supplement no other complaints Physical Exam Vital Signs: Vital Signs: Last Vital Signs Temp 99.7 F 11/06/24 12:00 Pulse 74 11/06/24 12:00 Resp 20 11/06/24 12:00 BP 97/40 L 11/06/24 12:00 Pulse Ox 94 11/06/24 12:00 O2 Del Method Nasal Cannula 11/06/24 12:00 O2 Flow Rate 3 11/06/24 12:00 BMI result Body Mass Index 20.7 Const: Other: General: no acute distress Resp: CTA bilateral CVS: S1,S2,RRR GI: +BS, NT, no distention Skin: No rash Neuro: motor grossly intact Psych: appropriate affect Objective Data Active Medications Acetaminophen (Acetaminophen 325 Mg Tablet) 650 mg PO Q6H PRN PRN Reason: Pain, Mild (Pain Scale 1-3), fever or headache Last Admin: 11/05/24 20:38 Dose: 650 mg Documented By: YONI Calcium Carbonate (Calcium Carbonate 750 Mg Tab.Chew) 750 mg PO Q4H PRN PRN Reason: Heartburn Fluticasone Propionate (Fluticasone Propionate Nasal 16 Gm [place]) 1 spray NOSTRIL-B DAILY [facility] Last Admin: 11/06/24 08:42 Dose: 1 spray Documented By: KSENIA Folic Acid (Folic Acid 1 Mg Tablet) 1 mg PO DAILY [facility] Last Admin: 11/06/24 08:42 Dose: 1 mg Documented By: KSENIA Magnesium Hydroxide (Milk Of Magnesia 30 Ml Oral.Susp) 30 ml PO DAILY PRN PRN Reason: Constipation Magnesium Oxide (Magnesium Oxide 400 Mg Tablet) 400 mg PO BIDPC [facility] Last Admin: 11/06/24 08:42 Dose: 400 mg Documented By: KSENIA Melatonin (Melatonin 3 Mg Tablet) 6 mg PO BEDTIME PRN PRN Reason: Insomnia Last Admin: 11/05/24 20:38 Dose: 6 mg Documented By: YONI Midodrine (Midodrine Hcl 5 Mg Tablet) 5 mg PO TID [facility] Last Admin: 11/06/24 08:42 Dose: 5 mg Documented By: KSENIA Multivitamins/Vitamin C (Multivitamin Tablet) 1 tab PO DAILY [facility] Last Admin: 11/06/24 08:42 Dose: 1 tab Documented By: KSENIA Omeprazole (Omeprazole 20 Mg Donnell.) 20 mg PO BID@0630,1630 [facility] Last Admin: 11/06/24 06:00 Dose: Not Given Documented By: YONI Non-Admin Reason: Patient Asleep Pharmacy Consult (Consult Rx Etoh Phenob Im/Po) 1 each MISCELLANE ONCE PRN; Protocol PRN Reason: Consult order Sodium Chloride (0.9 % Sodium Chloride Flush 3 Ml Syringe) 3 ml IVFLUSH QSHIFT [facility] Last Admin: 11/06/24 08:44 Dose: Not Given Documented By: KSENIA Non-Admin Reason: No Access Thiamine HCl (Thiamine Hcl 100 Mg Tablet) 100 mg PO DAILY [facility] Last Admin: 11/06/24 08:42 Dose: 100 mg Documented By: KSENIA Labs 11/02/24 05:49 11/03/24 06:46 Assessment and Plan (1) Aspiration pneumonia: Status: Acute Assessment and Plan: This is a 54-year-old male with a past medical history of alcohol abuse and dependence and stigmata of chronic liver disease who was brought in by ambulance for what appeared to be intoxication. The patient has been found to have hypoxia requiring 3 L of supplemental oxygen as well as hypotension which has responded to intravenous fluids. He is exhibiting signs of withdrawal and given his hypoxia now will be admitted for further workup and treatment. Acute respiratory failure with hypoxia likely from aspiration PNA, remains hypoxic still on 3L of O2 continue weaning off O2, and goal of dc without O2 as he patient wants to go back to streets not to a nursing home or snf completed course of antibiotics for PNA Incentive spirometry repeat CXR Wean O2 down as tolerated, goal to wean off as he is unlikely to get Home O2 as he is homeless Acute alcohol withdrawal, no withdrawal symptoms has completed phenobarbital thiamine prerenal azotemia vs angelika: resolved. ALcoholic liver disease/cirrhosis with ascites hepatitis screen and hiv-nonreactive had paracentesis of 2.7 L removal on 10/23 continue midodrine Pancytpenia--d/t cirrhosis H/H trending down since admission no acute bleeding noted likely bone marrow suppression from etoh/chronic inflammation as well as acute illness iron 73 b12, folate Hyponatremia--d/t cirrhoss, resolved. Hypokalemia--resolved mild hypocalemia -calcium levels seems normal when corrected for hypoalbuminemia, resolved. DVT pptx -- mechanical due to thrombocytopenia Out of bed, ambulate with staff (2) Hypoxia: Status: Acute (3) Acute respiratory failure with hypoxia: Status: Acute Quality Stroke Does the patient have a stroke diagnosis?: No VTE Prior VTE?: No VTE Risk Level:: Medical - moderate - high VTE Device Contraindication: N/A - Device Ordered VTE Drug Contraindication: Treatment Not Tolerated
[2024-11-06] MEDS: Omeprazole 20 MG CAPSULE.DR PO (18:00)
--- NOTE | 2024-11-06 19:22 | PC.NURSE ---
Patient alert and oriented, uncooperative, refused to use call harris, attempted to get out of bed without assistance, also kept removing nasal cannula, had to be continuously reminded to keep the O2 NC in place. Currently on 2L NC, unable to wean off, patient would desat to low 80 on 1L NC
[2024-11-06] MEDS: Melatonin 3 MG TABLET 6 MG PO (19:55)
[2024-11-06] MEDS: Acetaminophen 325 MG TABLET 650 MG PO (19:55)
[2024-11-07 03:55] VITALS: BP 92/50; PULSE 79; RESP 20; TEMP 36.4; O2SAT 90
[2024-11-07 06:00] VITALS: BMI 20.7
[2024-11-07] MEDS: Omeprazole 20 MG CAPSULE.DR PO ×2 (06:17→17:42)
[2024-11-07 07:35] VITALS: BP 105/55; PULSE 73; RESP 20; TEMP 36.7; O2SAT 96
[2024-11-07] MEDS: Midodrine HCl 5 MG TABLET PO ×3 (08:32→21:02)
[2024-11-07] MEDS: Magnesium Oxide 400 MG TABLET PO ×2 (08:32→17:43)
[2024-11-07] MEDS: Multivitamin TABLET 1 TAB PO (08:32)
[2024-11-07] MEDS: Folic Acid 1 MG TABLET PO (08:33)
[2024-11-07] MEDS: Thiamine HCL 100 MG TABLET PO (08:33)
--- NOTE | 2024-11-07 09:45 | P.PNIM_ITS ---
Subjective Subjective Date of Service: 11/07/24 Interval History: resting in bed, feels little better still on O2 supplement, difficult to wean off he is refusing to go to rehab Physical Exam 2 Vital Signs: Vital Signs: Last Vital Signs Temp 98.1 F 11/07/24 07:35 Pulse 73 11/07/24 07:35 Resp 20 11/07/24 07:35 BP 105/55 L 11/07/24 07:35 Pulse Ox 96 11/07/24 07:35 O2 Del Method Nasal Cannula 11/07/24 07:35 O2 Flow Rate 2 11/07/24 07:35 BMI result Body Mass Index 20.7 General: AO X 3, no acute distress Resp: CTA bilateral CVS: S1,S2,RRR GI: +BS, NT, no distention Skin: No rash Neuro: motor grossly intact Psych: appropriate affect Objective Data Active Medications Acetaminophen (Acetaminophen 325 Mg Tablet) 650 mg PO Q6H PRN PRN Reason: Pain, Mild (Pain Scale 1-3), fever or headache Last Admin: 11/06/24 19:55 Dose: 650 mg Documented By: OLEG Calcium Carbonate (Calcium Carbonate 750 Mg Tab.Chew) 750 mg PO Q4H PRN PRN Reason: Heartburn Fluticasone Propionate (Fluticasone Propionate Nasal 16 Gm [place]) 1 spray NOSTRIL-B DAILY [facility] Last Admin: 11/06/24 08:42 Dose: 1 spray Documented By: KSENIA Folic Acid (Folic Acid 1 Mg Tablet) 1 mg PO DAILY [facility] Last Admin: 11/07/24 08:33 Dose: 1 mg Documented By: ERNIE Magnesium Hydroxide (Milk Of Magnesia 30 Ml Oral.Susp) 30 ml PO DAILY PRN PRN Reason: Constipation Magnesium Oxide (Magnesium Oxide 400 Mg Tablet) 400 mg PO BIDPC [facility] Last Admin: 11/07/24 08:32 Dose: 400 mg Documented By: ERNIE Melatonin (Melatonin 3 Mg Tablet) 6 mg PO BEDTIME PRN PRN Reason: Insomnia Last Admin: 11/06/24 19:55 Dose: 6 mg Documented By: OLEG Midodrine (Midodrine Hcl 5 Mg Tablet) 5 mg PO TID [facility] Last Admin: 11/07/24 08:32 Dose: 5 mg Documented By: ERNIE Multivitamins/Vitamin C (Multivitamin Tablet) 1 tab PO DAILY [facility] Last Admin: 11/07/24 08:32 Dose: 1 tab Documented By: ERNIE Omeprazole (Omeprazole 20 Mg Donnell.) 20 mg PO BID@0630,1630 [facility] Last Admin: 11/07/24 06:17 Dose: 20 mg Documented By: OLEG Pharmacy Consult (Consult Rx Etoh Phenob Im/Po) 1 each MISCELLANE ONCE PRN; Protocol PRN Reason: Consult order Sodium Chloride (0.9 % Sodium Chloride Flush 3 Ml Syringe) 3 ml IVFLUSH QSHIFT [facility] Last Admin: 11/06/24 19:57 Dose: Not Given Documented By: OLEG Non-Admin Reason: No Access Thiamine HCl (Thiamine Hcl 100 Mg Tablet) 100 mg PO DAILY [facility] Last Admin: 11/07/24 08:33 Dose: 100 mg Documented By: ERNIE Labs 11/02/24 05:49 11/03/24 06:46 Assessment and Plan (1) Aspiration pneumonia: Status: Acute Assessment and Plan: This is a 54-year-old male with a past medical history of alcohol abuse and dependence and stigmata of chronic liver disease who was brought in by ambulance for what appeared to be intoxication. The patient has been found to have hypoxia requiring 3 L of supplemental oxygen as well as hypotension which has responded to intravenous fluids. He is exhibiting signs of withdrawal and given his hypoxia now will be admitted for further workup and treatment. Acute respiratory failure with hypoxia likely from aspiration PNA, remains hypoxic still on at 2 to 3 L continue weaning off O2, and goal of dc without O2 as he patient wants to go back to streets not to a [facility] or snf completed course of antibiotics for PNA Incentive spirometry Wean O2 down as tolerated, goal to wean off as he is unlikely to get Home O2 as he is homeless Acute alcohol withdrawal, no withdrawal symptoms has completed phenobarbital thiamine prerenal azotemia vs angelika: resolved. ALcoholic liver disease/cirrhosis with ascites hepatitis screen and hiv-nonreactive had paracentesis of 2.7 L removal on 10/23 continue midodrine Pancytpenia--d/t cirrhosis H/H trending down since admission no acute bleeding noted likely bone marrow suppression from etoh/chronic inflammation as well as acute illness iron 73 b12, folate Hyponatremia--d/t cirrhoss, resolved. Hypokalemia--resolved mild hypocalemia -calcium levels seems normal when corrected for hypoalbuminemia, resolved. DVT pptx -- mechanical due to thrombocytopenia Out of bed, ambulate with staff (2) Hypoxia: Status: Acute (3) Acute respiratory failure with hypoxia: Status: Acute Quality Stroke Does the patient have a stroke diagnosis?: No VTE Prior VTE?: No VTE Risk Level:: Medical - moderate - high VTE Device Contraindication: N/A - Device Ordered VTE Drug Contraindication: Treatment Not Tolerated
[2024-11-07] MEDS: Fluticasone Propionate Nasal 16 GM SPRAY 1 SPRAY NOSTRIL-B (10:30)
[2024-11-07 11:29] VITALS: BP 106/56; PULSE 70; RESP 18; TEMP 36.8; O2SAT 96
[2024-11-07 15:33] VITALS: BP 108/53; PULSE 92; RESP 18; TEMP 36.6; O2SAT 95
[2024-11-07] MEDS: Acetaminophen 325 MG TABLET 650 MG PO (17:49)
[2024-11-07 20:31] VITALS: BP 110/64; PULSE 79; RESP 16; TEMP 36.7; O2SAT 95
[2024-11-07] MEDS: Melatonin 3 MG TABLET 6 MG PO (21:02)
[2024-11-08] VITALS (8 sets, daily range): BP systolic 106–115; BP diastolic 55–65; PULSE 60–82; RESP 16–20; TEMP 36.3–37.3; O2SAT 94–98; BMI 21.1
[2024-11-08] MEDS: Omeprazole 20 MG CAPSULE.DR PO ×2 (05:50→18:02)
[2024-11-08] MEDS: Midodrine HCl 5 MG TABLET PO ×3 (08:43→19:45)
[2024-11-08] MEDS: Multivitamin TABLET 1 TAB PO (08:43)
[2024-11-08] MEDS: Folic Acid 1 MG TABLET PO (08:43)
[2024-11-08] MEDS: Thiamine HCL 100 MG TABLET PO (08:43)
[2024-11-08] MEDS: Magnesium Oxide 400 MG TABLET PO ×2 (08:43→17:26)
[2024-11-08 09:30] LABS: Hematocrit 26.6 % (42.0-52.0); Hemoglobin 8.5 g/dl (14.0-18.0)
--- NOTE | 2024-11-08 10:23 | MHC.CM.PN ---
Addendum entered by Ana Almeida RN 11/08/24 13:39: PER HOSPITALIST PSYCH CONSULT IN FOR CAPACITY Original Note: EMR REVIEWED, PT REMAINS ON 2L O2 NC, P.T. EVAL REQUESTED PT HAS NOT BEEN ABLE TO WEAN OFF O2 AND WANTS TO RETURN TO STREET, POSSIBLE NEED FOR CAPACITY EVAL IF PT IS RECOMMENDED STR AND HE CONT'S TO REFUSE, CM WILL CONT TO FOLLOW DC NEEDS.
[2024-11-08] MEDS: Fluticasone Propionate Nasal 16 GM SPRAY 1 SPRAY NOSTRIL-B (11:34)
[2024-11-08 13:15] LABS: Anion Gap 9 (12-20); Blood Urea Nitrogen 23 mg/dL (9-16); Calcium 10.2 mg/dL (8.4-10.2); Carbon Dioxide 23 mmol/L (22-29); Chloride 110 mmol/L (96-108); Estimated Glomerular Filt Rate > 60; Glucose Random 98 mg/dL (60-115); Potassium 4.3 mmol/L (3.3-5.1); Sodium 138 mmol/L (135-145)
--- NOTE | 2024-11-08 16:40 | PM.PSYCN ---
History of Present Illness Date of Service: 11/08/24 Chief Complaint: HYPOXIA Reason for Consult: capacity eval Requesting physician: Astrid Hines Discussed with referring provider: Yes Sources of Information: patient interviewed and chart reviewed HPI Narrative: Patient is a 54-year-old male with history of alcohol abuse and dependence and stigmata of chronic liver disease who was brought in by ambulance for what appeared to be intoxication. The patient has been found to have hypoxia requiring 3 L of supplemental oxygen as well as hypotension which has responded to intravenous fluids. He is exhibiting signs of withdrawal and given his hypoxia now will be admitted for further workup and treatment. Psychiatric consult placed for: capacity eval During psychiatric assessment, pt presents alert and oriented x3. Calm and cooperative. He is able to understand his medical problem, why he is hospitalized and understands foreseeable consequences of refusing proposed treatment. Patient stated he agrees to go to short term rehab and states he told his provider he would not go d/t thinking he was talking about rehab for alcohol, which I don't want to do . Past Psychiatric History: hx of 3 prior detox admissions for alcohol use. does not have outpatient psychiatric providers Pt reports hx of one SI attempt via overdose on pills at the age of 17. Medical Evaluation Reviewed: Yes [facility], [facility] Medical History (Updated 11/08/24 @ 16:50 by Sendy Vera NP) Alcoholic liver disease Aspiration pneumonia Thrombocytopenia Malnutrition CHF (congestive heart failure) Anemia Hypomagnesemia Cirrhosis Thrombocytopenia Acute on chronic anemia CHF (congestive heart failure) Anemia Pneumonia Alcohol abuse Alcohol withdrawal syndrome Surgical History No history of previous surgery Family History: denies Social History: homeless, single, no kids. unemployed. Substance History: drinks three beers and hald pint of vodka daily. denies any other substance use. Trauma History: denies Diagnostics Vital Signs (24Hr): Vital Signs - 24 hr 11/07/24 20:31 11/08/24 00:00 11/08/24 03:57 Temperature 98.0 F 98.3 F 98.0 F Pulse Rate 79 78 60 Respiratory Rate 16 20 16 Blood Pressure 110/64 106/55 L 106/56 L Pulse Oximetry 95 96 98 Oxygen Delivery Method Nasal Cannula Nasal Cannula Nasal Cannula Oxygen Flow Rate 2 2 2 11/08/24 07:32 11/08/24 10:54 11/08/24 11:20 Temperature 97.3 F 98.4 F Pulse Rate 75 75 73 Respiratory Rate 18 17 Blood Pressure 115/63 115/63 113/58 L Pulse Oximetry 97 97 96 Oxygen Delivery Method Nasal Cannula Nasal Cannula Oxygen Flow Rate 2 2 11/08/24 15:28 Temperature 99.2 F Pulse Rate 82 Respiratory Rate 18 Blood Pressure 115/65 Pulse Oximetry 95 Oxygen Delivery Method Nasal Cannula Oxygen Flow Rate 2 BMI result Body Mass Index 21.1 Labs 11/08/24 09:24 11/08/24 12:52 Labs: Laboratory Results - last 48 hr 11/08/24 11/08/24 09:24 12:52 Hgb 8.5 L Hct 26.6 L Sodium 138 Potassium 4.3 Chloride 110 H Carbon Dioxide 23 Anion Gap 9 L BUN 23 H Creatinine 0.77 Estim Creat Clear Calc 91.0 Estimated GFR > 60 Random Glucose 98 Calcium 10.2 D Imaging Radiology Impressions: ITS Impressions Chest X-Ray 10/21/24 05:23 IMPRESSION: Increased diffuse interstitial opacities and increased bibasilar patchy and streaky opacities. Possible trace bilateral pleural effusions. This study was presented today October 16, 2024 for interpretation. Stat results provided at this time as requested by referring provider. Electronically signed by: Elvira Chaudhary MD 10/21/2024 08:11 AM EST RP Chest CT 10/21/24 08:17 IMPRESSION: 1. Confluent left lower lobe airspace consolidations with air bronchograms. Additional scattered partially ground-glass airspace opacities within the right and left upper lobes. Findings are consistent with multifocal pneumonia and are new when compared to the prior chest CT. 2. No significant lymphadenopathy. 3. Hepatomegaly with hepatic steatosis. Small amount of upper abdominal ascites with partially visualized mesenteric stranding. Fleischner guidelines were followed. Electronically signed by: Randal Maguire MD 10/21/2024 11:15 AM EST RP Chest X-Ray 10/23/24 10:14 IMPRESSION: Patchy airspace disease in either unchanged or slightly worse. Findings likely reflect pneumonia either stable or slightly progressive. Recommend continued follow-up is a PA and lateral. Electronically signed by: Chung Rogers MD 10/23/2024 04:40 PM EST RP Paracentesis Ultrasound 10/23/24 13:00 Impression: Ultrasound-guided paracentesis as described above. No immediate complications Electronically signed by: Solo Junior MD 10/31/2024 02:51 PM EST RP Chest X-Ray 10/25/24 09:45 IMPRESSION: 1. No significant interval change in bilateral multifocal pneumonitis as described above. Examination is stable. Major differential is asymmetric pulmonary edema pattern. 2. No pneumothorax. Electronically signed by: David Wang MD 10/25/2024 03:30 PM EST RP Abdomen Ultrasound 10/28/24 17:03 IMPRESSION: Consider cirrhosis with the hepatofugal flow direction of the main portal vein and small to moderate amount of ascites, suggesting portal hypertension. Cholelithiasis. Electronically signed by: Eric Steele MD 10/29/2024 08:29 AM EST RP Chest X-Ray 10/31/24 11:30 IMPRESSION: Diffuse interstitial prominence with patchy right mid lung and left basilar airspace opacities, slightly increased when compared to the prior examination. Electronically signed by: Randal Maguire MD 11/01/2024 10:53 PM EST RP Chest X-Ray 11/06/24 13:10 IMPRESSION: 1. Moderate to severe diffuse increased interstitial opacification nonspecific might be interstitial pneumonitis, versus interstitial edema not significantly changed from prior exam.. 2. No dense focal consolidation pneumonia. Electronically signed by: Odell Munoz MD 11/06/2024 01:33 PM EST RP Chest CT 11/08/24 13:56 IMPRESSION: 1. Near-complete resolution of the left lower lobe confluent airspace consolidation. 2. Diffuse bilateral ground-glass opacities, new/increased when compared to the prior examination. Findings are concerning for an infectious or inflammatory process. 3.Partially visualized upper abdominal ascites, new when compared to the prior CT. Fleischner guidelines were followed. Electronically signed by: Randal Maguire MD 11/08/2024 03:45 PM EST RP Mental Status Exam Mental Status Exam Patient Appearance: Appropriate Patient Orientation: Person, Place, Time and Situation Level of Consciousness: Awake and Alert Patient Behavior: Appropriate, Guarded and Cooperative Mood Description: Calm Affect Description: Calm Ability to Follow Directions: Good Speech Pattern: Clear Memory Description: Intact Hallucinations: None Delusions: Not Present Thought Process: Intact Thought Content: positive for Intact Judgement: Fair Medications Medications Current Medications Acetaminophen (Acetaminophen 325 Mg Tablet) 650 mg PO Q6H PRN PRN Reason: Pain, Mild (Pain Scale 1-3), fever or headache Last Admin: 11/07/24 17:49 Dose: 650 mg Calcium Carbonate (Calcium Carbonate 750 Mg Tab.Chew) 750 mg PO Q4H PRN PRN Reason: Heartburn Fluticasone Propionate (Fluticasone Propionate Nasal 16 Gm [place]) 1 spray NOSTRIL-B DAILY [facility] Last Admin: 11/08/24 11:34 Dose: 1 spray Folic Acid (Folic Acid 1 Mg Tablet) 1 mg PO DAILY [facility] Last Admin: 11/08/24 08:43 Dose: 1 mg Magnesium Hydroxide (Milk Of Magnesia 30 Ml Oral.Susp) 30 ml PO DAILY PRN PRN Reason: Constipation Magnesium Oxide (Magnesium Oxide 400 Mg Tablet) 400 mg PO BIDPC [facility] Last Admin: 11/08/24 08:43 Dose: 400 mg Melatonin (Melatonin 3 Mg Tablet) 6 mg PO BEDTIME PRN PRN Reason: Insomnia Last Admin: 11/07/24 21:02 Dose: 6 mg Midodrine (Midodrine Hcl 5 Mg Tablet) 5 mg PO TID [facility] Multivitamins/Vitamin C (Multivitamin Tablet) 1 tab PO DAILY [facility] Last Admin: 11/08/24 08:43 Dose: 1 tab Omeprazole (Omeprazole 20 Mg Capsule.Dr) 20 mg PO BID@0630,1630 [facility] Last Admin: 11/08/24 05:50 Dose: 20 mg Pharmacy Consult (Consult Rx Etoh Phenob Im/Po) 1 each MISCELLANE ONCE PRN; Protocol PRN Reason: Consult order Sodium Chloride (0.9 % Sodium Chloride Flush 3 Ml Syringe) 3 ml IVFLUSH QSHIFT [facility] Last Admin: 11/08/24 08:43 Dose: Not Given Thiamine HCl (Thiamine Hcl 100 Mg Tablet) 100 mg PO DAILY [facility] Last Admin: 11/08/24 08:43 Dose: 100 mg Allergies Allergies Allergy/AdvReac Type Severity Reaction Status Date / Time No Known Allergies Allergy Verified 10/20/24 20:50 [No Known Allergies*] Assessment & Plan Assessment & Plan (1) Encounter for assessment of decision-making capacity: Status: Acute Code(s): Z00.8 - Encounter for other general examination Plan Patient appears to have capacity for medical decision making at this time. If mental status changes, please re-consult psychiatry. Total time managing care of this patient today _20___ minutes.
--- NOTE | 2024-11-08 17:35 | P.PNIM_ITS ---
Subjective Subjective Date of Service: 11/08/24 Interval History: hypoxia -unclear etiology Review of Systems sob mostly in excersion hypoxia Physical Exam 2 Vital Signs: Vital Signs: Last Vital Signs Temp 99.2 F 11/08/24 15:28 Pulse 82 11/08/24 15:28 Resp 18 11/08/24 15:28 BP 115/65 11/08/24 15:28 Pulse Ox 95 11/08/24 15:28 O2 Del Method Nasal Cannula 11/08/24 15:28 O2 Flow Rate 2 11/08/24 15:28 BMI result Body Mass Index 21.1 General: AO X 3, no acute distress Resp: air entry fair ,somewhat diminshed at bases. CVS: S1,S2,RRR GI: +BS, NT, no distention Skin: No rash Neuro: motor grossly intact Psych: appropriate affect Objective Data Active Medications Acetaminophen (Acetaminophen 325 Mg Tablet) 650 mg PO Q6H PRN PRN Reason: Pain, Mild (Pain Scale 1-3), fever or headache Last Admin: 11/07/24 17:49 Dose: 650 mg Documented By: ERNIE Calcium Carbonate (Calcium Carbonate 750 Mg Tab.Chew) 750 mg PO Q4H PRN PRN Reason: Heartburn Fluticasone Propionate (Fluticasone Propionate Nasal 16 Gm [place]) 1 spray NOSTRIL-B DAILY [facility] Last Admin: 11/08/24 11:34 Dose: 1 spray Documented By: ERNIE Folic Acid (Folic Acid 1 Mg Tablet) 1 mg PO DAILY [facility] Last Admin: 11/08/24 08:43 Dose: 1 mg Documented By: ERNIE Magnesium Hydroxide (Milk Of Magnesia 30 Ml Oral.Susp) 30 ml PO DAILY PRN PRN Reason: Constipation Magnesium Oxide (Magnesium Oxide 400 Mg Tablet) 400 mg PO BIDPC [facility] Last Admin: 11/08/24 17:26 Dose: 400 mg Documented By: ERNIE Melatonin (Melatonin 3 Mg Tablet) 6 mg PO BEDTIME PRN PRN Reason: Insomnia Last Admin: 11/07/24 21:02 Dose: 6 mg Documented By: YONI Midodrine (Midodrine Hcl 5 Mg Tablet) 5 mg PO TID [facility] Last Admin: 11/08/24 17:26 Dose: 5 mg Documented By: ERNIE Multivitamins/Vitamin C (Multivitamin Tablet) 1 tab PO DAILY [facility] Last Admin: 11/08/24 08:43 Dose: 1 tab Documented By: ERNIE Omeprazole (Omeprazole 20 Mg [place].) 20 mg PO BID@0630,1630 [facility] Last Admin: 11/08/24 05:50 Dose: 20 mg Documented By: RASHIDA Pharmacy Consult (Consult Rx Etoh Phenob Im/Po) 1 each MISCELLANE ONCE PRN; Protocol PRN Reason: Consult order Sodium Chloride (0.9 % Sodium Chloride Flush 3 Ml Syringe) 3 ml IVFLUSH QSHIFT [facility] Last Admin: 11/08/24 17:26 Dose: Not Given Documented By: ERNIE Non-Admin Reason: No Access Thiamine HCl (Thiamine Hcl 100 Mg Tablet) 100 mg PO DAILY [facility] Last Admin: 11/08/24 08:43 Dose: 100 mg Documented By: ERNIE Labs 11/08/24 09:24 11/08/24 12:52 Labs: Laboratory Results - last 24 hr 11/08/24 12:52 Anion Gap 9 L Estim Creat Clear Calc 91.0 Estimated GFR > 60 Random Glucose 98 Calcium 10.2 D Assessment and Plan (1) Acute respiratory failure with hypoxia: Status: Acute Assessment and Plan: 54-year-old male with a past medical history of alcohol abuse and dependence and stigmata of chronic liver disease who was brought in by ambulance for what appeared to be intoxication. The patient has been found to have hypoxia requiring 3 L of supplemental oxygen as well as hypotension which has responded to intravenous fluids. He is exhibiting signs of withdrawal and given his hypoxia now will be admitted for further workup and treatment. Acute respiratory failure with hypoxia likely from aspiration PNA, remains hypoxic still on at 2 to 3 L continue weaning off O2, and goal of dc without O2 as he patient wants to go back to streets not to a care home or snf completed course of antibiotics for PNA cxr -shows ? increased opacities new , ct chest -Diffuse bilateral ground-glass opacities, new/increased when compared to the prior examination. added cbc and procalcitonin levels pulm eval Incentive spirometry Wean O2 down as tolerated, goal to wean off as he is unlikely to get Home O2 as he is homeless Acute alcohol withdrawal, no withdrawal symptoms has completed phenobarbital thiamine prerenal azotemia vs angelika: resolved. ALcoholic liver disease/cirrhosis with ascites hepatitis screen and hiv-nonreactive had paracentesis of 2.7 L removal on 10/23 continue midodrine Pancytpenia--d/t cirrhosis H/H trending down since admission no acute bleeding noted likely bone marrow suppression from etoh/chronic inflammation as well as acute illness iron 73 b12, folate Hyponatremia--d/t cirrhoss, resolved. Hypokalemia--resolved mild hypocalemia -calcium levels seems normal when corrected for hypoalbuminemia, resolved. DVT pptx -- mechanical due to thrombocytopenia Out of bed, ambulate with staff Quality Stroke Does the patient have a stroke diagnosis?: No VTE Prior VTE?: No VTE Risk Level:: Medical - moderate - high VTE Device Contraindication: N/A - Device Ordered VTE Drug Contraindication: Treatment Not Tolerated
[2024-11-08 17:48] LABS: Platelet Count 99 X10*3/uL (160-400)
[2024-11-08 17:53] LABS: Neutrophils Absolute Auto 3.6 x10*3/uL (2.0-8.3); White Blood Count 5.4 X10*3/uL (4.8-10.8)
[2024-11-08] MEDS: Furosemide 20 MG TABLET PO (18:01)
[2024-11-08 18:27] LABS: Procalcitonin 0.34 ng/mL
[2024-11-08] MEDS: Melatonin 3 MG TABLET 6 MG PO (19:45)
[2024-11-09] VITALS (10 sets, daily range): BP systolic 97–117; BP diastolic 51–60; PULSE 74–96; RESP 17–18; TEMP 37–37.5; O2SAT 92–99
[2024-11-09] MEDS: Omeprazole 20 MG CAPSULE.DR PO ×2 (05:06→17:30)
[2024-11-09] MEDS: Albuterol/Iprat 2.5/0.5MG 3 ML AMPUL.NEB INHALE ×4 (08:19→20:12)
[2024-11-09] MEDS: Midodrine HCl 5 MG TABLET PO ×3 (10:35→20:01)
[2024-11-09] MEDS: Magnesium Oxide 400 MG TABLET PO ×2 (10:35→16:47)
[2024-11-09] MEDS: Folic Acid 1 MG TABLET PO (10:35)
[2024-11-09] MEDS: Thiamine HCL 100 MG TABLET PO (10:35)
[2024-11-09] MEDS: Furosemide 20 MG TABLET PO ×2 (10:35→16:47)
[2024-11-09] MEDS: Multivitamin TABLET 1 TAB PO (10:35)
--- NOTE | 2024-11-09 11:47 | P.PNPL_ITS ---
Subjective Subjective Date of Service: 11/09/24 Interval history: Continues to require supplemental oxygen to maintain normal oximetry. Objective Data Labs 11/08/24 09:24 11/08/24 12:52 Labs: Laboratory Results - last 24 hr 11/08/24 11/08/24 09:24 12:52 WBC 5.4 Plt Count 99 L Absolute Neuts (auto) 3.6 Sodium 138 Potassium 4.3 Chloride 110 H Carbon Dioxide 23 Anion Gap 9 L BUN 23 H Creatinine 0.77 Estim Creat Clear Calc 91.0 Estimated GFR > 60 Random Glucose 98 Calcium 10.2 D Procalcitonin 0.34 Microbiology Microbiology Results: Microbiology 10/23/24 13:45 Abdominal Fluid Gram Stain - Final 10/23/24 13:45 Abdominal Fluid Routine Culture - Final No growth after 2 days 10/23/24 13:45 Abdominal Fluid Anaerobic Culture - Final NO GROWTH AFTER 5 DAYS 10/21/24 05:39 Blood - Venous Blood Culture - Final No growth after 5 days. 10/21/24 05:28 Blood - Venous Blood Culture - Final No growth after 5 days. Physical Exam 2 Vital Signs: Vital Signs: Last Vital Signs Temp 98.9 F 11/09/24 11:17 Pulse 84 11/09/24 11:17 Resp 18 11/09/24 11:17 BP 105/60 11/09/24 11:17 Pulse Ox 92 11/09/24 11:17 O2 Del Method Nasal Cannula 11/09/24 11:17 O2 Flow Rate 1 11/09/24 11:17 BMI result Body Mass Index 21.1 Const: General: no acute distress, alert and awake Eyes: Sclerae: sclerae normal EOM: EOMs intact bilaterally Neck: Neck: Yes no lymphadenopathy, Yes trachea midline and Yes supple Resp: Effort & Inspection: normal respiratory effort and no respiratory distress Auscultation: clear to auscultation bilaterally Cardio: Rate: regular rate Rhythm: regular rhythm Heart sounds: no gallops, no murmurs and no rubs GI: Palpation (GI): Soft to palpation and Other GI palpation findings present ( Nontender) Auscultation: normal bowel sounds Extrem: General: Yes no pedal edema, No clubbing and No cyanosis Procedures Date of Service Date of Service: 11/09/24 Assessment and Plan Assessment and plan (1) Acute and chronic respiratory failure: Status: Acute Plan Impression: 54-year-old gentleman with chronic hypoxic respiratory failure, so far with unclear etiology. Aspiration component appears to have resolved. Does not appear to have chronic underlying lung disease. Concern for possible patty- pulmonary shunting. Recommendation: Consider obtaining 2D echocardiogram with bubble study to evaluate for shunting physiology. Time Spent With Patient Time: Total time managing care of this patient today ____ minutes. Progress Note: Quality Stroke Does the patient have a stroke diagnosis?: No
[2024-11-09 12:11] LABS: Adenovirus PCR Not Detected (Not Detect.); Bordetella parapertussis PCR Not Detected (Not Detect.); Bordetella pertussis PCR Not Detected (Not Detect.); Chlamydia pneumoniae PCR Not Detected (Not Detect.); Coronavirus 229E PCR Not Detected (Not Detect.); Coronavirus HKU1 PCR Not Detected (Not Detect.); Coronavirus NL63 PCR Not Detected (Not Detect.); Coronavirus OC43 PCR Not Detected (Not Detect.); Human metapneumovirus PCR Not Detected (Not Detect.); Influenza A PCR Not Detected (Not Detect.); Influenza B PCR Not Detected (Not Detect.); Mycoplasma pneumoniae PCR Not Detected (Not Detect.); Parainfluenza 1 PCR Not Detected (Not Detect.); Parainfluenza 2 PCR Not Detected (Not Detect.); Parainfluenza 3 PCR Not Detected (Not Detect.); Parainfluenza 4 PCR Not Detected (Not Detect.); RSV PCR Not Detected (Not Detect.); Rhino/Enterovirus PCR Not Detected (Not Detect.)
[2024-11-09 12:16] LABS: SARS-CoV-2 PCR Not Detected (Not Detect.)
--- NOTE | 2024-11-09 14:30 | HO.PM.IMPN ---
Subjective Subjective Date of Service: 11/09/24 Interval History: hypoxia Review of Systems seems more comfortable denies any cough or sputum or fevers Physical Exam Vital Signs: Vital Signs: Last Vital Signs Temp 98.9 F 11/09/24 11:17 Pulse 84 11/09/24 12:02 Resp 18 11/09/24 12:02 BP 105/60 11/09/24 11:17 Pulse Ox 92 11/09/24 11:17 O2 Del Method Nasal Cannula 11/09/24 11:17 O2 Flow Rate 1 11/09/24 11:17 BMI result Body Mass Index 21.1 General: AO X 3, no acute distress Resp: air entry fair ,somewhat diminshed at bases. CVS: S1,S2,RRR GI: +BS, NT, no distention Skin: No rash Neuro: motor grossly intact Psych: appropriate affect Objective Data Active Medications Acetaminophen (Acetaminophen 325 Mg Tablet) 650 mg PO Q6H PRN PRN Reason: Pain, Mild (Pain Scale 1-3), fever or headache Last Admin: 11/07/24 17:49 Dose: 650 mg Documented By: ERNIE Albuterol/Ipratropium (Albuterol/Iprat 2.5/0.5mg 3 Ml Ampul.Neb) 3 ml INHALE RQ4H WHILE AWAKE [facility] Last Admin: 11/09/24 12:01 Dose: 3 ml Documented By: MAXIME Calcium Carbonate (Calcium Carbonate 750 Mg Tab.Chew) 750 mg PO Q4H PRN PRN Reason: Heartburn Fluticasone Propionate (Fluticasone Propionate Nasal 16 Gm [place]) 1 spray NOSTRIL-B DAILY [facility] Last Admin: 11/09/24 10:36 Dose: Not Given Documented By: ERNIE Non-Admin Reason: Med Not Available Folic Acid (Folic Acid 1 Mg Tablet) 1 mg PO DAILY [facility] Last Admin: 11/09/24 10:35 Dose: 1 mg Documented By: ERNIE Furosemide (Furosemide 20 Mg Tablet) 20 mg PO BID@0900,1800 [facility]; Protocol Last Admin: 11/09/24 10:35 Dose: 20 mg Documented By: ERNIE Magnesium Hydroxide (Milk Of Magnesia 30 Ml Oral.Susp) 30 ml PO DAILY PRN PRN Reason: Constipation Magnesium Oxide (Magnesium Oxide 400 Mg Tablet) 400 mg PO BIDPC [facility] Last Admin: 12/28/24 10:35 Dose: 400 mg Documented By: ERNIE Melatonin (Melatonin 3 Mg Tablet) 6 mg PO BEDTIME PRN PRN Reason: Insomnia Last Admin: 11/08/24 19:45 Dose: 6 mg Documented By: OLEG Midodrine (Midodrine Hcl 5 Mg Tablet) 5 mg PO TID [facility] Last Admin: 11/09/24 10:35 Dose: 5 mg Documented By: ERNIE Multivitamins/Vitamin C (Multivitamin Tablet) 1 tab PO DAILY [facility] Last Admin: 11/09/24 10:35 Dose: 1 tab Documented By: ERNIE Omeprazole (Omeprazole 20 Mg Capsule.Dr) 20 mg PO BID@0630,1630 [facility] Last Admin: 11/09/24 05:06 Dose: 20 mg Documented By: OLEG Pharmacy Consult (Consult Rx Etoh Phenob Im/Po) 1 each MISCELLANE ONCE PRN; Protocol PRN Reason: Consult order Sodium Chloride (0.9 % Sodium Chloride Flush 3 Ml Syringe) 3 ml IVFLUSH QSHIFT [facility] Last Admin: 11/09/24 10:36 Dose: Not Given Documented By: ERNIE Non-Admin Reason: No Access Thiamine HCl (Thiamine Hcl 100 Mg Tablet) 100 mg PO DAILY [facility] Last Admin: 11/09/24 10:35 Dose: 100 mg Documented By: ERNIE Labs 11/08/24 09:24 11/08/24 12:52 Labs: Laboratory Results - last 24 hr 11/08/24 11/08/24 11/09/24 09:24 12:52 10:48 Plt Count 99 L Absolute Neuts (auto) 3.6 Procalcitonin 0.34 Respiratory Panel Muhammad See Note Adenovirus (Rapid PCR) Not Detected B.pert (TEM-PCR) Not Detected B.parapertussis DNA PCR Not Detected C. pneumoniae DNA (PCR) Not Detected Coronavirus OC43 (PCR) Not Detected Coronavirus HKU1 (PCR) Not Detected Coronavirus 229E (PCR) Not Detected Coronavirus NL63 (PCR) Not Detected Human Metapneumovir PCR Not Detected Influenza A (RT-PCR) Not Detected Influenza B (RT-PCR) Not Detected M. pneumoniae (PCR) Not Detected Parainfluenza 1 (PCR) Not Detected Parainfluenza 2 (PCR) Not Detected Parainfluenza 3 (PCR) Not Detected Parainfluenza 4 (PCR) Not Detected RSV (PCR) Not Detected Entero/Rhino (PCR) Not Detected SARS-CoV-2 RNA (RT-PCR) Not Detected Assessment and Plan (1) Acute respiratory failure with hypoxia: Status: Acute Assessment and Plan: 54-year-old male with a past medical history of alcohol abuse and dependence and stigmata of chronic liver disease who was brought in by ambulance for what appeared to be intoxication. The patient has been found to have hypoxia requiring 3 L of supplemental oxygen as well as hypotension which has responded to intravenous fluids. He is exhibiting signs of withdrawal and given his hypoxia now will be admitted for further workup and treatment. Acute respiratory failure with hypoxia likely from aspiration PNA, remains hypoxic still on at 2 to 3 L continue weaning off O2, and goal of dc without O2 as he patient wants to go back to streets not to a alf or snf completed course of antibiotics for PNA cxr -shows ? increased opacities new , ct chest -Diffuse bilateral ground-glass opacities, new/increased when compared to the prior examination. procalcitonin levels low 0.34 pulm eval- slowly wean oxygen and check echo with bubble study to r/o pulm shunting Incentive spirometry Wean O2 down as tolerated, goal to wean off as he is unlikely to get Home O2 as he is homeless Acute alcohol withdrawal, no withdrawal symptoms has completed phenobarbital thiamine prerenal azotemia vs angelika: resolved. ALcoholic liver disease/cirrhosis with ascites hepatitis screen and hiv-nonreactive had paracentesis of 2.7 L removal on 10/23 continue midodrine Pancytpenia--d/t cirrhosis H/H trending down since admission no acute bleeding noted likely bone marrow suppression from etoh/chronic inflammation as well as acute illness iron 73 b12, folate Hyponatremia--d/t cirrhoss, resolved. Hypokalemia--resolved mild hypocalemia -calcium levels seems normal when corrected for hypoalbuminemia, resolved. DVT pptx -- mechanical due to thrombocytopenia Out of bed, ambulate with staff ongoing need for stay-Acute respiratory failure with hypoxia- need oxygen weaning and workup for pulm shunting Quality Stroke Does the patient have a stroke diagnosis?: No VTE Prior VTE?: No VTE Risk Level:: Medical - moderate - high VTE Device Contraindication: N/A - Device Ordered VTE Drug Contraindication: Treatment Not Tolerated
--- NOTE | 2024-11-09 18:42 | PC.NURSE ---
Patient ambulated all hallways of the floor with no fatigue on room air. when returning to room, patient saturation was 85% on room air, returned 2l nc
[2024-11-09] MEDS: Melatonin 3 MG TABLET 6 MG PO (20:01)
[2024-11-09] MEDS: Acetaminophen 325 MG TABLET 650 MG PO (20:03)
[2024-11-10] VITALS (7 sets, daily range): BP systolic 93–111; BP diastolic 45–81; PULSE 73–89; RESP 16–18; TEMP 37.1–37.7; O2SAT 90–96; BMI 22.0
[2024-11-10] MEDS: Omeprazole 20 MG CAPSULE.DR PO ×2 (05:26→16:17)
[2024-11-10] MEDS: Thiamine HCL 100 MG TABLET PO (08:30)
[2024-11-10] MEDS: Folic Acid 1 MG TABLET PO (08:30)
[2024-11-10] MEDS: Multivitamin TABLET 1 TAB PO (08:30)
[2024-11-10] MEDS: Midodrine HCl 5 MG TABLET PO ×3 (08:31→20:39)
[2024-11-10] MEDS: Magnesium Oxide 400 MG TABLET PO ×2 (08:31→16:17)
[2024-11-10] MEDS: Furosemide 20 MG TABLET PO (08:31)
[2024-11-10] MEDS: Fluticasone Propionate Nasal 16 GM SPRAY 1 SPRAY NOSTRIL-B (08:31)
[2024-11-10] MEDS: Albuterol/Iprat 2.5/0.5MG 3 ML AMPUL.NEB INHALE (08:32)
--- NOTE | 2024-11-10 13:34 | HO.PM.IMPN ---
Subjective Subjective Date of Service: 11/10/24 Interval History: hypoxia Review of Systems sob seems improving denies any chest pain or sob bodelrine bp Physical Exam Vital Signs: Vital Signs: Last Vital Signs Temp 99.9 F 11/10/24 11:39 Pulse 80 11/10/24 11:39 Resp 17 11/10/24 11:39 BP 93/45 L 11/10/24 11:39 Pulse Ox 92 11/10/24 11:39 O2 Del Method Nasal Cannula 11/10/24 11:39 O2 Flow Rate 2 11/10/24 11:39 BMI result Body Mass Index 22.0 General: AO X 3, no acute distress Resp: air entry fair ,somewhat diminshed at bases. CVS: S1,S2,RRR GI: +BS, NT, no distention Skin: No rash Neuro: motor grossly intact Psych: appropriate affect Objective Data Active Medications Acetaminophen (Acetaminophen 325 Mg Tablet) 650 mg PO Q6H PRN PRN Reason: Pain, Mild (Pain Scale 1-3), fever or headache Last Admin: 11/09/24 20:03 Dose: 650 mg Documented By: DIOMEDES Albuterol/Ipratropium (Albuterol/Iprat 2.5/0.5mg 3 Ml Ampul.Neb) 3 ml INHALE RQ4H WHILE AWAKE [facility] Last Admin: 11/10/24 11:54 Dose: Not Given Documented By: TIARRA Non-Admin Reason: Patient Refused Calcium Carbonate (Calcium Carbonate 750 Mg Tab.Chew) 750 mg PO Q4H PRN PRN Reason: Heartburn Fluticasone Propionate (Fluticasone Propionate Nasal 16 Gm [place]) 1 spray NOSTRIL-B DAILY [facility] Last Admin: 11/10/24 08:31 Dose: 1 spray Documented By: ERNIE Folic Acid (Folic Acid 1 Mg Tablet) 1 mg PO DAILY [facility] Last Admin: 11/10/24 08:30 Dose: 1 mg Documented By: ERNIE Furosemide (Furosemide 20 Mg Tablet) 20 mg PO DAILY [facility]; Protocol Last Admin: 11/10/24 08:31 Dose: 20 mg Documented By: ERNIE Magnesium Hydroxide (Milk Of Magnesia 30 Ml Oral.Susp) 30 ml PO DAILY PRN PRN Reason: Constipation Magnesium Oxide (Magnesium Oxide 400 Mg Tablet) 400 mg PO BIDPC [facility] Last Admin: 11/10/24 08:31 Dose: 400 mg Documented By: ERNIE Melatonin (Melatonin 3 Mg Tablet) 6 mg PO BEDTIME PRN PRN Reason: Insomnia Last Admin: 11/09/24 20:01 Dose: 6 mg Documented By: DIOMEDES Midodrine (Midodrine Hcl 5 Mg Tablet) 5 mg PO TID [facility] Last Admin: 11/10/24 08:31 Dose: 5 mg Documented By: ERNIE Multivitamins/Vitamin C (Multivitamin Tablet) 1 tab PO DAILY [facility] Last Admin: 11/10/24 08:30 Dose: 1 tab Documented By: ERNIE Omeprazole (Omeprazole 20 Mg Capsule.Dr) 20 mg PO BID@0630,1630 [facility] Last Admin: 11/10/24 05:26 Dose: 20 mg Documented By: DIOMEDES Pharmacy Consult (Consult Rx Etoh Phenob Im/Po) 1 each MISCELLANE ONCE PRN; Protocol PRN Reason: Consult order Sodium Chloride (0.9 % Sodium Chloride Flush 3 Ml Syringe) 3 ml IVFLUSH QSHIFT [facility] Last Admin: 11/10/24 10:49 Dose: Not Given Documented By: ERNIE Non-Admin Reason: No Access Thiamine HCl (Thiamine Hcl 100 Mg Tablet) 100 mg PO DAILY [facility] Last Admin: 11/10/24 08:30 Dose: 100 mg Documented By: ERNIE Labs 11/08/24 09:24 11/08/24 12:52 Assessment and Plan (1) Acute respiratory failure with hypoxia: Status: Acute Assessment and Plan: 54-year-old male with a past medical history of alcohol abuse and dependence and stigmata of chronic liver disease who was brought in by ambulance for what appeared to be intoxication. The patient has been found to have hypoxia requiring 3 L of supplemental oxygen as well as hypotension which has responded to intravenous fluids. He is exhibiting signs of withdrawal and given his hypoxia now will be admitted for further workup and treatment. Acute respiratory failure with hypoxia likely from aspiration PNA, remains hypoxic still on at 1-2L continue weaning off O2, and goal of dc without O2 as he patient wants to go back to streets not to a detention or snf completed course of antibiotics for PNA cxr -shows ? increased opacities new , ct chest -Diffuse bilateral ground-glass opacities, new/increased when compared to the prior examination. procalcitonin levels low 0.34 pulm eval- slowly wean oxygen and check echo with bubble study to r/o pulm shunting Incentive spirometry Wean O2 down as tolerated, goal to wean off as he is unlikely to get Home O2 as he is homeless Acute alcohol withdrawal, no withdrawal symptoms has completed phenobarbital thiamine prerenal azotemia vs angelika: resolved. ALcoholic liver disease/cirrhosis with ascites hepatitis screen and hiv-nonreactive had paracentesis of 2.7 L removal on 10/23 continue midodrine Pancytpenia--d/t cirrhosis H/H trending down since admission no acute bleeding noted likely bone marrow suppression from etoh/chronic inflammation as well as acute illness iron 73 b12, folate Hyponatremia--d/t cirrhoss, resolved. Hypokalemia--resolved mild hypocalemia -calcium levels seems normal when corrected for hypoalbuminemia, resolved. DVT pptx -- mechanical due to thrombocytopenia Out of bed, ambulate with staff ongoing need for stay-Acute respiratory failure with hypoxia- need oxygen weaning and workup for pulm shunting Quality Stroke Does the patient have a stroke diagnosis?: No VTE Prior VTE?: No VTE Risk Level:: Medical - moderate - high VTE Device Contraindication: N/A - Device Ordered VTE Drug Contraindication: Treatment Not Tolerated
[2024-11-10] MEDS: Acetaminophen 325 MG TABLET 650 MG PO (16:17)
[2024-11-11] VITALS (16 sets, daily range): BP systolic 95–125; BP diastolic 44–62; PULSE 69–96; RESP 16–22; TEMP 36.8–37.4; O2SAT 84–100; BMI 22.0
[2024-11-11] MEDS: Omeprazole 20 MG CAPSULE.DR PO ×2 (06:26→15:38)
--- NOTE | 2024-11-11 07:00 | CA_ITS ---
Transthoracic Echocardiogram Patient (Last, First, Middle): Charbel Delgado, Gender: Male Date of : 1970 Age: 54 Procedure Date: 11/11/2024 Procedure Type: Transthoracic Echocardiogram Location: [facility] [place] Height: 167.64 cm Weight: 61.69 kg BSA: 1.70 m2 Heart Rate: bpm BP: 98 / 62 mmHg Clinical Research Tech: Referring MD: Astrid Hines MD Symptoms: echo with bubble study r/o pulm shunting Study Quality: Adequate Conclusions: - Large shunt across the interatrial septum which could represent an ASD Findings Left Ventricle Normal left ventricular size, thickness, and systolic function. Atria large shunting across intra-atrial septum at rest, could represent ASD of secundum type or a large PFO. Recommendations, Care & Conclusions Recommend a SHANE. Measurements 2D Systolic Function EF 4C: 66.30 >55% EF 2C: 59.80 >55% EF BiP: 61.50 >55% Updated in Other Vendor System with Status of Final Axel Diane MD electronically signed on 11/11/2024 3:39:03 PM with status of Final
[2024-11-11] MEDS: Magnesium Oxide 400 MG TABLET PO ×2 (08:00→17:54)
[2024-11-11] MEDS: Midodrine HCl 5 MG TABLET PO ×3 (08:00→19:50)
[2024-11-11] MEDS: Furosemide 20 MG TABLET PO (08:00)
[2024-11-11] MEDS: Thiamine HCL 100 MG TABLET PO (08:00)
[2024-11-11] MEDS: Multivitamin TABLET 1 TAB PO (08:00)
[2024-11-11] MEDS: Folic Acid 1 MG TABLET PO (08:00)
[2024-11-11] MEDS: Fluticasone Propionate Nasal 16 GM SPRAY 1 SPRAY NOSTRIL-B (08:01)
[2024-11-11] MEDS: Albuterol/Iprat 2.5/0.5MG 3 ML AMPUL.NEB INHALE ×3 (08:14→20:04)
[2024-11-11 10:40] LABS: ABG Base Excess -1.4 mmol/L; ABG HCO3 20 mmol/L (22-26); ABG pCO2 26 mmHg (32-45); ABG pH 7.49 (7.35-7.45); ABG pO2 57 mmHg (83-108)
--- NOTE | 2024-11-11 11:45 | MHC.CM.PN ---
EMR REVIEWED, PT OFF CONT O2 HOWEVER PER HOSPITALIST REMAINS HYPOXIC AND NOT READY FOR DC, CM TO PROVIDE LYFT TRANSPORT TO [address] [place] [address] IN [place] ONCE MEDICALLY CLEARED.
--- NOTE | 2024-11-11 13:12 | P.PNIM_ITS ---
Subjective Subjective Date of Service: 11/11/24 Interval History: hypoxia -? pneumonitis Review of Systems does not seems sob has hypoxia requiring 1-2 liter Physical Exam 2 Vital Signs: Vital Signs: Last Vital Signs Temp 99.1 F 11/11/24 12:00 Pulse 91 11/11/24 12:00 Resp 16 11/11/24 12:00 BP 113/52 L 11/11/24 12:00 Pulse Ox 96 11/11/24 12:00 O2 Del Method Nasal Cannula 11/11/24 12:00 O2 Flow Rate 3 11/11/24 12:00 BMI result Body Mass Index 22.0 General: AO X 3, no acute distress Resp: air entry fair ,somewhat diminshed at bases. CVS: S1,S2,RRR GI: +BS, NT, no distention,has ascitis Skin: No rash Neuro: motor grossly intact Psych: appropriate affect Objective Data Active Medications Acetaminophen (Acetaminophen 325 Mg Tablet) 650 mg PO Q6H PRN PRN Reason: Pain, Mild (Pain Scale 1-3), fever or headache Last Admin: 11/10/24 16:17 Dose: 650 mg Documented By: FELIPA Albuterol/Ipratropium (Albuterol/Iprat 2.5/0.5mg 3 Ml Ampul.Neb) 3 ml INHALE RQ4H WHILE AWAKE [facility] Last Admin: 11/11/24 11:17 Dose: 3 ml Documented By: OUMOU Calcium Carbonate (Calcium Carbonate 750 Mg Tab.Chew) 750 mg PO Q4H PRN PRN Reason: Heartburn Fluticasone Propionate (Fluticasone Propionate Nasal 16 Gm [place]) 1 spray NOSTRIL-B DAILY [facility] Last Admin: 11/11/24 08:01 Dose: 1 spray Documented By: MANUELA Folic Acid (Folic Acid 1 Mg Tablet) 1 mg PO DAILY [facility] Last Admin: 11/11/24 08:00 Dose: 1 mg Documented By: MANUELA Furosemide (Furosemide 20 Mg Tablet) 20 mg PO DAILY [facility]; Protocol Last Admin: 11/11/24 08:00 Dose: 20 mg Documented By: MANUELA Magnesium Hydroxide (Milk Of Magnesia 30 Ml Oral.Susp) 30 ml PO DAILY PRN PRN Reason: Constipation Magnesium Oxide (Magnesium Oxide 400 Mg Tablet) 400 mg PO BIDPC [facility] Last Admin: 11/11/24 08:00 Dose: 400 mg Documented By: MANUELA Melatonin (Melatonin 3 Mg Tablet) 6 mg PO BEDTIME PRN PRN Reason: Insomnia Last Admin: 11/09/24 20:01 Dose: 6 mg Documented By: DIOMEDES Methylprednisolone Sodium Succinate (Methylprednisolone Sod Succ 40 Mg/Ml Vial) 40 mg IVPUSH Q12H [facility] Midodrine (Midodrine Hcl 5 Mg Tablet) 5 mg PO TID [facility] Last Admin: 11/11/24 08:00 Dose: 5 mg Documented By: MANUELA Multivitamins/Vitamin C (Multivitamin Tablet) 1 tab PO DAILY [facility] Last Admin: 11/11/24 08:00 Dose: 1 tab Documented By: MANUELA Omeprazole (Omeprazole 20 Mg Capsule.Dr) 20 mg PO BID@0630,1630 [facility] Last Admin: 11/11/24 06:26 Dose: 20 mg Documented By: DIEGO Pharmacy Consult (Consult Rx Etoh Phenob Im/Po) 1 each MISCELLANE ONCE PRN; Protocol PRN Reason: Consult order Sodium Chloride (0.9 % Sodium Chloride Flush 3 Ml Syringe) 3 ml IVFLUSH QSHIFT [facility] Last Admin: 11/11/24 07:40 Dose: Not Given Documented By: MANUELA Non-Admin Reason: No Access Thiamine HCl (Thiamine Hcl 100 Mg Tablet) 100 mg PO DAILY [facility] Last Admin: 11/11/24 08:00 Dose: 100 mg Documented By: MANUELA Labs 11/08/24 09:24 11/08/24 12:52 Labs: Laboratory Results - last 24 hr 11/11/24 10:29 O2 Saturation 85.0 ABG pH at Pt Temp 7.49 H ABG pCO2 at Pt Temp 26 L ABG pO2 at Pt Temp 57 L ABG HCO3 20 L ABG Base Excess (Actual) -1.4 Assessment and Plan (1) Acute respiratory failure with hypoxia: Status: Acute Assessment and Plan: 54-year-old male with a past medical history of alcohol abuse and dependence and stigmata of chronic liver disease who was brought in by ambulance for what appeared to be intoxication. The patient has been found to have hypoxia requiring 3 L of supplemental oxygen as well as hypotension which has responded to intravenous fluids. He is exhibiting signs of withdrawal and given his hypoxia now will be admitted for further workup and treatment. Acute respiratory failure with hypoxia likely from aspiration PNA, remains hypoxic still on at 1-2L continue weaning off O2, and goal of dc without O2 as he patient wants to go back to streets not to a assisted or snf completed course of antibiotics for PNA cxr -shows ? increased opacities new , ct chest -Diffuse bilateral ground-glass opacities, new/increased when compared to the prior examination., procalcitonin levels low 0.34 plan:d/w pulm abg noted :ph mainatained echo with bubble study to r/o pulm shunting also added trail of iv solumedrol -? possible areas of pneumonitison ct .I ncentive spirometry Wean O2 down as tolerated, goal to wean off as he is unlikely to get Home O2 as he is homeless pulm following Acute alcohol withdrawal, no withdrawal symptoms has completed phenobarbital thiamine prerenal azotemia vs angelika: resolved. ALcoholic liver disease/cirrhosis with ascites hepatitis screen and hiv-nonreactive had paracentesis of 2.7 L removal on 10/23 added paracentesis today -has some ascitis on exam. continue midodrine Pancytpenia--d/t cirrhosis H/H trending down since admission no acute bleeding noted likely bone marrow suppression from etoh/chronic inflammation as well as acute illness iron 73 b12, folate Hyponatremia--d/t cirrhoss, resolved. Hypokalemia--resolved mild hypocalemia -calcium levels seems normal when corrected for hypoalbuminemia, resolved. DVT pptx -- mechanical due to thrombocytopenia Out of bed, ambulate with staff ongoing need for stay-Acute respiratory failure with hypoxia- need oxygen weaning and workup for pulm shunting, iv solumedrole ,wean oxygen ,patient agrees for rehab for dispo when stable. Quality Stroke Does the patient have a stroke diagnosis?: No VTE Prior VTE?: No VTE Risk Level:: Medical - moderate - high VTE Device Contraindication: N/A - Device Ordered VTE Drug Contraindication: Treatment Not Tolerated
[2024-11-11] MEDS: Albumin Human 25 % 100 ML IV ×2 (13:58→17:54)
[2024-11-11] MEDS: methylPREDNISolone Sod Succ 40 MG/ML VIAL IVPUSH (13:58)
--- NOTE | 2024-11-11 15:01 | PM.PROC ---
Brief Operative Note Date of procedure: 11/11/24 Pre-op diagnosis: Ascites Post-op diagnosis: same Procedure: Limited pre-procedure US shows a very small amount of perihepatic ascites. Insufficient amount of fluid is present for a therapeutic paracentesis.
[2024-11-11] MEDS: 0.9 % Sodium Chloride Flush 3 ML SYRINGE IVFLUSH ×2 (15:38→19:53)
[2024-11-12] VITALS (13 sets, daily range): BP systolic 98–132; BP diastolic 51–83; PULSE 81–96; RESP 14–20; TEMP 36.7–37.5; O2SAT 87–95; BMI 20.5
[2024-11-12 00:38] LABS: ABG Refer to POC result
[2024-11-12] MEDS: methylPREDNISolone Sod Succ 40 MG/ML VIAL IVPUSH ×2 (01:00→14:14)
[2024-11-12] MEDS: Albumin Human 25 % 100 ML IV ×2 (01:00→09:21)
[2024-11-12] MEDS: Omeprazole 20 MG CAPSULE.DR PO ×2 (05:56→16:50)
[2024-11-12] MEDS: Albuterol/Iprat 2.5/0.5MG 3 ML AMPUL.NEB INHALE ×3 (07:50→20:37)
--- NOTE | 2024-11-12 08:36 | P.PNPL_ITS ---
Subjective Subjective Date of Service: 11/12/24 Interval history: The patient was seen on exam. Overall he is doing well. His oxygen is on his forehead breathing comfortably watching TV. Denies any respiratory complaints at this time. He is able to take deep breaths on command. No congestion and no pain. I did review his CT scan of the chest demonstrating interval improvement of the consolidations. He still has some areas of mosaic pattern in pneumonitis. Still likely aspiration related. Volume status appears to be better. Objective Data Labs 11/08/24 09:24 11/08/24 12:52 Labs: Laboratory Results - last 24 hr 11/11/24 10:29 O2 Saturation 85.0 ABG pH at Pt Temp 7.49 H ABG pCO2 at Pt Temp 26 L ABG pO2 at Pt Temp 57 L ABG HCO3 20 L ABG Base Excess (Actual) -1.4 Microbiology Microbiology Results: Microbiology 10/23/24 13:45 Abdominal Fluid Gram Stain - Final 10/23/24 13:45 Abdominal Fluid Routine Culture - Final No growth after 2 days 10/23/24 13:45 Abdominal Fluid Anaerobic Culture - Final NO GROWTH AFTER 5 DAYS 10/21/24 05:39 Blood - Venous Blood Culture - Final No growth after 5 days. 10/21/24 05:28 Blood - Venous Blood Culture - Final No growth after 5 days. Review of Systems Constitutional: Denies chills and Denies fever(s) Eyes: Reports no additional eye complaints Reports system reviewed and no additional complaints, except as documented Cardiovascular: Denies chest pain Respiratory: Reports cough and Denies wheezing Gastrointestinal: Reports as per HPI Musculoskeletal: Reports no additional musculoskeletal complaints Reports tremor(s) Hematologic/Lymphatic: Reports no additional hematologic/lymphatic complaints Allergic/Immunologic: Denies wheezing Physical Exam 2 Vital Signs: Vital Signs: Last Vital Signs Temp 98.0 F 11/12/24 07:33 Pulse 81 11/12/24 07:52 Resp 16 11/12/24 07:52 BP 124/58 L 11/12/24 07:33 Pulse Ox 94 11/12/24 07:33 O2 Del Method Nasal Cannula 11/12/24 07:33 O2 Flow Rate 3 11/12/24 07:33 BMI result Body Mass Index 20.5 Appearance: Alert.? Oriented X3.? cvs: rrr, [id number] , no murmur res: diminished breath sounds, no wheezing, no crackles abd: no rebound or guarding ,nt, bs present. ext pulses present , no cyanosis ,1+edema . neuro: axo3 , nonfocal. Procedures Date of Service Date of Service: 11/12/24 Assessment and Plan Assessment and plan (1) Acute and chronic respiratory failure: Status: Acute (2) Aspiration pneumonia: Status: Acute Plan Continue broad-spectrum antibiotics completed Transition solumedrol to PO prednisone 40mg with taper 10mg every 3-5 days until completed Out of bed to recliner to be well-expanded lungs better Incentive spirometer while in bed May benefit from rehab diuresis as tolerated respiratory therapy titrate oxygen to keep pox>90% Should follow up with outpt pulmonology Time Spent With Patient Time: Total time managing care of this patient today ____ minutes. Progress Note: Quality Stroke Does the patient have a stroke diagnosis?: No
[2024-11-12] MEDS: 0.9 % Sodium Chloride Flush 3 ML SYRINGE IVFLUSH ×2 (09:21→16:50)
[2024-11-12] MEDS: Furosemide 20 MG TABLET PO (09:21)
[2024-11-12] MEDS: Magnesium Oxide 400 MG TABLET PO ×2 (09:21→16:50)
[2024-11-12] MEDS: Folic Acid 1 MG TABLET PO (09:21)
[2024-11-12] MEDS: Multivitamin TABLET 1 TAB PO (09:21)
[2024-11-12] MEDS: Thiamine HCL 100 MG TABLET PO (09:22)
[2024-11-12] MEDS: Midodrine HCl 5 MG TABLET PO ×2 (09:22→20:48)
[2024-11-12] MEDS: Fluticasone Propionate Nasal 16 GM SPRAY 1 SPRAY NOSTRIL-B (09:23)
--- NOTE | 2024-11-12 11:28 | P.PNIM_ITS ---
Subjective Subjective Date of Service: 11/12/24 Interval History: hypoxia -? pneumonitis Not sob, off O2 this morning and sating 89 to 94 Physical Exam 2 Vital Signs: Vital Signs: Last Vital Signs Temp 98.5 F 11/12/24 11:05 Pulse 91 11/12/24 11:05 Resp 20 11/12/24 11:05 BP 132/62 11/12/24 11:05 Pulse Ox 94 11/12/24 11:05 O2 Del Method Room Air 11/12/24 11:05 O2 Flow Rate 3 11/12/24 07:33 BMI result Body Mass Index 20.5 General: AO X 3, no acute distress Resp: CTA bilateral CVS: S1,S2,RRR GI: +BS, NT, no distention Skin: No rash Neuro: motor grossly intact Psych: appropriate affect Objective Data Active Medications Acetaminophen (Acetaminophen 325 Mg Tablet) 650 mg PO Q6H PRN PRN Reason: Pain, Mild (Pain Scale 1-3), fever or headache Last Admin: 11/10/24 16:17 Dose: 650 mg Documented By: FELIPA Albuterol/Ipratropium (Albuterol/Iprat 2.5/0.5mg 3 Ml Ampul.Neb) 3 ml INHALE RQ4H WHILE AWAKE [facility] Last Admin: 11/12/24 11:15 Dose: 3 ml Documented By: JUNG Calcium Carbonate (Calcium Carbonate 750 Mg Tab.Chew) 750 mg PO Q4H PRN PRN Reason: Heartburn Fluticasone Propionate (Fluticasone Propionate Nasal 16 Gm [place]) 1 spray NOSTRIL-B DAILY [facility] Last Admin: 11/12/24 09:23 Dose: 1 spray Documented By: MANUELA Folic Acid (Folic Acid 1 Mg Tablet) 1 mg PO DAILY [facility] Last Admin: 11/12/24 09:21 Dose: 1 mg Documented By: MANUELA Furosemide (Furosemide 20 Mg Tablet) 20 mg PO DAILY [facility]; Protocol Last Admin: 11/12/24 09:21 Dose: 20 mg Documented By: MANUELA Magnesium Hydroxide (Milk Of Magnesia 30 Ml Oral.Susp) 30 ml PO DAILY PRN PRN Reason: Constipation Magnesium Oxide (Magnesium Oxide 400 Mg Tablet) 400 mg PO BIDPC [facility] Last Admin: 11/12/24 09:21 Dose: 400 mg Documented By: MANUELA Melatonin (Melatonin 3 Mg Tablet) 6 mg PO BEDTIME PRN PRN Reason: Insomnia Last Admin: 11/09/24 20:01 Dose: 6 mg Documented By: DIOMEDES Methylprednisolone Sodium Succinate (Methylprednisolone Sod Succ 40 Mg/Ml Vial) 40 mg IVPUSH Q12H [facility] Last Admin: 11/12/24 01:00 Dose: 40 mg Documented By: ARNALDO Midodrine (Midodrine Hcl 5 Mg Tablet) 5 mg PO TID [facility] Last Admin: 11/12/24 09:22 Dose: 5 mg Documented By: MANUELA Multivitamins/Vitamin C (Multivitamin Tablet) 1 tab PO DAILY [facility] Last Admin: 11/12/24 09:21 Dose: 1 tab Documented By: MANUELA Omeprazole (Omeprazole 20 Mg Capsule.) 20 mg PO BID@0630,1630 [facility] Last Admin: 11/12/24 05:56 Dose: 20 mg Documented By: ARNALDO Pharmacy Consult (Consult Rx Etoh Phenob Im/Po) 1 each MISCELLANE ONCE PRN; Protocol PRN Reason: Consult order Sodium Chloride (0.9 % Sodium Chloride Flush 3 Ml Syringe) 3 ml IVFLUSH QSHIFT [facility] Last Admin: 11/12/24 09:21 Dose: 3 ml Documented By: MANUELA Thiamine HCl (Thiamine Hcl 100 Mg Tablet) 100 mg PO DAILY [facility] Last Admin: 11/12/24 09:22 Dose: 100 mg Documented By: MANUELA Labs 11/08/24 09:24 11/08/24 12:52 Assessment and Plan (1) Acute respiratory failure with hypoxia: Status: Acute Assessment and Plan: 54-year-old male with a past medical history of alcohol abuse and dependence and stigmata of chronic liver disease who was brought in by ambulance for what appeared to be intoxication. The patient has been found to have hypoxia requiring 3 L of supplemental oxygen as well as hypotension which has responded to intravenous fluids. He is exhibiting signs of withdrawal and given his hypoxia now will be admitted for further workup and treatment. Acute respiratory failure with hypoxia likely from aspiration PNA, remains hypoxic still on at 1-2L continue weaning off O2, and goal of dc without O2 as he patient wants to go back to streets not to a snf or SNF completed course of antibiotics for PNA cxr -shows ? increased opacities new , ct chest -Diffuse bilateral ground-glass opacities, new/increased when compared to the prior examination., procalcitonin levels low 0.34 plan:d/w pulm abg noted :ph mainatained echo with bubble study to r/o pulm shunting also added trail of iv solumedrol -? possible areas of pneumonitison ct .I ncentive spirometry Wean O2 down as tolerated, goal to wean off as he is unlikely to get Home O2 as he is homeless pulm following Acute alcohol withdrawal, no withdrawal symptoms has completed phenobarbital thiamine prerenal azotemia vs angelika: resolved. ALcoholic liver disease/cirrhosis with ascites hepatitis screen and hiv-nonreactive had paracentesis of 2.7 L removal on 10/23 added paracentesis today -has some ascitis on exam. continue midodrine Pancytpenia--d/t cirrhosis H/H trending down since admission no acute bleeding noted likely bone marrow suppression from etoh/chronic inflammation as well as acute illness iron 73 b12, folate HypOnatremia--d/t cirrhoss, resolved. Hypokalemia--resolved mild hypocalemia -calcium levels seems normal when corrected for hypoalbuminemia, resolved. DVT pptx -- mechanical due to thrombocytopenia Out of bed, ambulate with staff ongoing need for stay-Acute respiratory failure with hypoxia- need oxygen weaning and workup for pulm shunting, iv solumedrole ,wean oxygen ,patient agrees for rehab for dispo when stable. Quality Stroke Does the patient have a stroke diagnosis?: No VTE Prior VTE?: No VTE Risk Level:: Medical - moderate - high VTE Device Contraindication: N/A - Device Ordered VTE Drug Contraindication: Treatment Not Tolerated
[2024-11-12] MEDS: Acetaminophen 325 MG TABLET 650 MG PO (20:51)
[2024-11-13] VITALS (10 sets, daily range): BP systolic 96–120; BP diastolic 49–75; PULSE 78–93; RESP 16–18; TEMP 37.2–37.4; O2SAT 92–96
--- NOTE | 2024-11-13 01:22 | PC.NURSE ---
Pt pulled out IV as he states, it was bothering me and I couldn't sleep . Pt refusing new IV. Dr Hogan notified IV is out and due for methylprednisolone, ok to skip this dose.
[2024-11-13] MEDS: Omeprazole 20 MG CAPSULE.DR PO (06:09)
[2024-11-13] MEDS: Fluticasone Propionate Nasal 16 GM SPRAY 1 SPRAY NOSTRIL-B (08:14)
[2024-11-13] MEDS: Furosemide 20 MG TABLET PO (08:15)
[2024-11-13] MEDS: Midodrine HCl 5 MG TABLET PO ×2 (08:15→14:25)
[2024-11-13] MEDS: Folic Acid 1 MG TABLET PO (08:15)
[2024-11-13] MEDS: Thiamine HCL 100 MG TABLET PO (08:15)
[2024-11-13] MEDS: Magnesium Oxide 400 MG TABLET PO (08:15)
[2024-11-13] MEDS: Multivitamin TABLET 1 TAB PO (08:15)
[2024-11-13] MEDS: Albuterol/Iprat 2.5/0.5MG 3 ML AMPUL.NEB INHALE ×3 (08:43→19:52)
[2024-11-13] MEDS: Acetaminophen 325 MG TABLET 650 MG PO ×2 (09:54→20:36)
--- NOTE | 2024-11-13 11:13 | P.PNIM_ITS ---
Subjective Subjective Date of Service: 11/13/24 Interval History: No new issues, remains hypoxic and is on oxygen but no acute distress Physical Exam 2 Vital Signs: Vital Signs: Last Vital Signs Temp 99.1 F 11/13/24 08:00 Pulse 82 11/13/24 08:45 Resp 18 11/13/24 08:45 BP 102/56 L 11/13/24 08:00 Pulse Ox 92 11/13/24 08:00 O2 Del Method Nasal Cannula 11/13/24 08:00 O2 Flow Rate 2 11/13/24 08:00 BMI result Body Mass Index 20.0 General: AO X 3, no acute distress Resp: CTA bilateral CVS: S1,S2,RRR GI: +BS, NT, no distention Skin: No rash Neuro: motor grossly intact Psych: appropriate affect Objective Data Active Medications Acetaminophen (Acetaminophen 325 Mg Tablet) 650 mg PO Q6H PRN PRN Reason: Pain, Mild (Pain Scale 1-3), fever or headache Last Admin: 11/13/24 09:54 Dose: 650 mg Documented By: WILTON Albuterol/Ipratropium (Albuterol/Iprat 2.5/0.5mg 3 Ml Ampul.Neb) 3 ml INHALE RQ4H WHILE AWAKE [facility] Last Admin: 11/13/24 08:43 Dose: 3 ml Documented By: KAREY Calcium Carbonate (Calcium Carbonate 750 Mg Tab.Chew) 750 mg PO Q4H PRN PRN Reason: Heartburn Fluticasone Propionate (Fluticasone Propionate Nasal 16 Gm [place]) 1 spray NOSTRIL-B DAILY [facility] Last Admin: 11/13/24 08:14 Dose: 1 spray Documented By: WILTON Folic Acid (Folic Acid 1 Mg Tablet) 1 mg PO DAILY [facility] Last Admin: 11/13/24 08:15 Dose: 1 mg Documented By: WILTON Furosemide (Furosemide 20 Mg Tablet) 20 mg PO DAILY [facility]; Protocol Last Admin: 11/13/24 08:15 Dose: 20 mg Documented By: WILTON Magnesium Hydroxide (Milk Of Magnesia 30 Ml Oral.Susp) 30 ml PO DAILY PRN PRN Reason: Constipation Magnesium Oxide (Magnesium Oxide 400 Mg Tablet) 400 mg PO BIDPC [facility] Last Admin: 11/13/24 08:15 Dose: 400 mg Documented By: WILTON Melatonin (Melatonin 3 Mg Tablet) 6 mg PO BEDTIME PRN PRN Reason: Insomnia Last Admin: 11/09/24 20:01 Dose: 6 mg Documented By: DIOMEDES Methylprednisolone Sodium Succinate (Methylprednisolone Sod Succ 40 Mg/Ml Vial) 40 mg IVPUSH Q12H [facility] Last Admin: 11/13/24 01:24 Dose: Not Given Documented By: KANE Non-Admin Reason: NO IV - MD aware Midodrine (Midodrine Hcl 5 Mg Tablet) 5 mg PO TID [facility] Last Admin: 11/13/24 08:15 Dose: 5 mg Documented By: WILTON Multivitamins/Vitamin C (Multivitamin Tablet) 1 tab PO DAILY [facility] Last Admin: 11/13/24 08:15 Dose: 1 tab Documented By: WILTON Omeprazole (Omeprazole 20 Mg Capsule.) 20 mg PO BID@0630,1630 [facility] Last Admin: 11/13/24 06:09 Dose: 20 mg Documented By: KANE Pharmacy Consult (Consult Rx Etoh Phenob Im/Po) 1 each MISCELLANE ONCE PRN; Protocol PRN Reason: Consult order Sodium Chloride (0.9 % Sodium Chloride Flush 3 Ml Syringe) 3 ml IVFLUSH QSHIFT [facility] Last Admin: 11/13/24 08:18 Dose: Not Given Documented By: WILTON Non-Admin Reason: No Access Thiamine HCl (Thiamine Hcl 100 Mg Tablet) 100 mg PO DAILY [facility] Last Admin: 11/13/24 08:15 Dose: 100 mg Documented By: WILTON Labs 11/08/24 09:24 11/08/24 12:52 Assessment and Plan (1) Acute respiratory failure with hypoxia: Status: Acute Assessment and Plan: 54-year-old male with a past medical history of alcohol abuse and dependence and stigmata of chronic liver disease who was brought in by ambulance for what appeared to be intoxication. The patient has been found to have hypoxia requiring 3 L of supplemental oxygen as well as hypotension which has responded to intravenous fluids. He is exhibiting signs of withdrawal and given his hypoxia now will be admitted for further workup and treatment. Acute respiratory failure with hypoxia likely from aspiration PNA, remains hypoxic still on at 1-2L continue weaning off O2, and goal of dc without O2 as he patient wants to go back to streets not to a intermediate or SNF completed course of antibiotics for PNA cxr -shows ? increased opacities new , ct chest -Diffuse bilateral ground-glass opacities, new/increased when compared to the prior examination., procalcitonin levels low 0.34 plan:d/w pulm abg noted :ph mainatained echo with bubble study to r/o pulm shunting also added trail of iv solumedrol -? possible areas of pneumonitison ct .I ncentive spirometry--change to po prednisone by tomorrow Wean O2 down as tolerated, goal to wean off as he is unlikely to get Home O2 as he is homeless Acute alcohol withdrawal, no withdrawal symptoms has completed phenobarbital thiamine prerenal azotemia vs angelika: resolved. ALcoholic liver disease/cirrhosis with ascites hepatitis screen and hiv-nonreactive had paracentesis of 2.7 L removal on 10/23 added paracentesis today -has some ascitis on exam. continue midodrine Pancytpenia--d/t cirrhosis H/H trending down since admission no acute bleeding noted likely bone marrow suppression from etoh/chronic inflammation as well as acute illness iron 73 b12, folate HypOnatremia--d/t cirrhoss, resolved. Hypokalemia--resolved mild hypocalemia -calcium levels seems normal when corrected for hypoalbuminemia, resolved. DVT pptx -- mechanical due to thrombocytopenia Out of bed, ambulate with staff ongoing need for stay-Acute respiratory failure with hypoxia- need oxygen weaning and workup for pulm shunting, iv solumedrole ,wean oxygen ,patient agrees for rehab for dispo when stable. Quality Stroke Does the patient have a stroke diagnosis?: No VTE Prior VTE?: No VTE Risk Level:: Medical - moderate - high VTE Device Contraindication: N/A - Device Ordered VTE Drug Contraindication: Treatment Not Tolerated
[2024-11-13 13:09] LABS: Hematocrit 22.6 % (42.0-52.0); Hemoglobin 7.3 g/dl (14.0-18.0); Mean Corpuscular HGB Conc 32.3 g/dl (31.0-36.0); Mean Corpuscular Hemoglobin 34.3 pg (27.0-33.0); Mean Corpuscular Volume 106.1 fL (80.0-98.0); Mean Platelet Volume 12.4 fL (9.4-12.4); Red Blood Count 2.13 X10*6/uL (4.60-5.80); Red Cell Distribution Width 14.6 % (11.0-16.0); White Blood Count 7.1 X10*3/uL (4.8-10.8)
[2024-11-13 13:10] LABS: Platelet Count 74 X10*3/uL (160-400)
[2024-11-13 13:23] LABS: Anion Gap 12 (12-20); Blood Urea Nitrogen 47 mg/dL (9-16); Calcium 9.5 mg/dL (8.4-10.2); Carbon Dioxide 19 mmol/L (22-29); Chloride 114 mmol/L (96-108); Estimated Glomerular Filt Rate > 60; Glucose Random 111 mg/dL (60-115); Potassium 3.8 mmol/L (3.3-5.1); Sodium 141 mmol/L (135-145)
[2024-11-13] MEDS: methylPREDNISolone Sod Succ 40 MG/ML VIAL IVPUSH (14:25)
[2024-11-13] MEDS: 0.9 % Sodium Chloride Flush 3 ML SYRINGE IVFLUSH ×2 (14:25→20:38)
[2024-11-13] MEDS: Melatonin 3 MG TABLET 6 MG PO (20:35)
[2024-11-14] VITALS (12 sets, daily range): BP systolic 102–118; BP diastolic 48–54; PULSE 76–100; RESP 16–18; TEMP 36.8–37.7; O2SAT 90–95; BMI 19.9
[2024-11-14] MEDS: methylPREDNISolone Sod Succ 40 MG/ML VIAL IVPUSH ×2 (00:11→12:24)
[2024-11-14] MEDS: Omeprazole 20 MG CAPSULE.DR PO ×2 (06:02→16:16)
[2024-11-14] MEDS: Albuterol/Iprat 2.5/0.5MG 3 ML AMPUL.NEB INHALE ×4 (07:27→19:23)
[2024-11-14] MEDS: 0.9 % Sodium Chloride Flush 3 ML SYRINGE IVFLUSH ×2 (07:47→16:16)
[2024-11-14] MEDS: Furosemide 20 MG TABLET PO (07:47)
[2024-11-14] MEDS: Thiamine HCL 100 MG TABLET PO (07:47)
[2024-11-14] MEDS: Folic Acid 1 MG TABLET PO (07:47)
[2024-11-14] MEDS: Multivitamin TABLET 1 TAB PO (07:47)
[2024-11-14] MEDS: Fluticasone Propionate Nasal 16 GM SPRAY 1 SPRAY NOSTRIL-B (07:47)
[2024-11-14] MEDS: Midodrine HCl 5 MG TABLET PO ×3 (07:47→21:24)
[2024-11-14] MEDS: Magnesium Oxide 400 MG TABLET PO ×2 (07:47→16:16)
--- NOTE | 2024-11-14 10:16 | MHC.CM.PN ---
PT MEDICALLY CLEARED FOR DC, P.T. CLEARING PT FOR NEED OF SKILLED P.T. PT IS LIKELY AT BASELINE, PT CONT'S TO DECLINE [facility]AC[facility] AND WILL RETURN TO ST, CM WILL ASSIST W/TRANSPORT
[2024-11-14] MEDS: Acetaminophen 325 MG TABLET 650 MG PO (12:24)
--- NOTE | 2024-11-14 15:05 | HO.PM.IMPN ---
Subjective Subjective Date of Service: 11/14/24 Interval History: he's doing better, off O2 this morning and sating around 90 to 93 Physical Exam Vital Signs: Vital Signs: Last Vital Signs Temp 99.1 F 11/14/24 11:31 Pulse 90 11/14/24 11:31 Resp 18 11/14/24 11:31 BP 103/53 L 11/14/24 11:31 Pulse Ox 94 11/14/24 11:31 O2 Del Method Room Air 11/14/24 11:31 O2 Flow Rate 2 11/14/24 03:19 BMI result Body Mass Index 19.9 General: AO X 3, no acute distress Resp: CTA bilateral CVS: S1,S2,RRR GI: +BS, NT, no distention Skin: No rash Neuro: motor grossly intact Psych: appropriate affect Const: Other: General: AO X 3, no acute distress Resp: CTA bilateral CVS: S1,S2,RRR GI: +BS, NT, no distention Skin: No rash Neuro: motor grossly intact Psych: appropriate affect Objective Data Active Medications Acetaminophen (Acetaminophen 325 Mg Tablet) 650 mg PO Q6H PRN PRN Reason: Pain, Mild (Pain Scale 1-3), fever or headache Last Admin: 11/14/24 12:24 Dose: 650 mg Documented By: RICKY Albuterol/Ipratropium (Albuterol/Iprat 2.5/0.5mg 3 Ml Ampul.Neb) 3 ml INHALE RQ4H WHILE AWAKE [facility] Last Admin: 11/14/24 11:12 Dose: 3 ml Documented By: HENOK Calcium Carbonate (Calcium Carbonate 750 Mg Tab.Chew) 750 mg PO Q4H PRN PRN Reason: Heartburn Fluticasone Propionate (Fluticasone Propionate Nasal 16 Gm [place]) 1 spray NOSTRIL-B DAILY [facility] Last Admin: 11/14/24 07:47 Dose: 1 spray Documented By: RICKY Folic Acid (Folic Acid 1 Mg Tablet) 1 mg PO DAILY [facility] Last Admin: 11/14/24 07:47 Dose: 1 mg Documented By: RICKY Furosemide (Furosemide 20 Mg Tablet) 20 mg PO DAILY [facility]; Protocol Last Admin: 11/14/24 07:47 Dose: 20 mg Documented By: RICKY Magnesium Hydroxide (Milk Of Magnesia 30 Ml Oral.Susp) 30 ml PO DAILY PRN PRN Reason: Constipation Magnesium Oxide (Magnesium Oxide 400 Mg Tablet) 400 mg PO BIDPC [facility] Last Admin: 11/14/24 07:47 Dose: 400 mg Documented By: RICKY Melatonin (Melatonin 3 Mg Tablet) 6 mg PO BEDTIME PRN PRN Reason: Insomnia Last Admin: 11/13/24 20:35 Dose: 6 mg Documented By: YONI Methylprednisolone Sodium Succinate (Methylprednisolone Sod Succ 40 Mg/Ml Vial) 40 mg IVPUSH Q12H [facility] Last Admin: 11/14/24 12:24 Dose: 40 mg Documented By: RICKY Midodrine (Midodrine Hcl 5 Mg Tablet) 5 mg PO TID [facility] Last Admin: 11/14/24 07:47 Dose: 5 mg Documented By: RICKY Multivitamins/Vitamin C (Multivitamin Tablet) 1 tab PO DAILY [facility] Last Admin: 11/14/24 07:47 Dose: 1 tab Documented By: RICKY Omeprazole (Omeprazole 20 Mg Capsule.) 20 mg PO BID@0630,1630 [facility] Last Admin: 11/14/24 06:02 Dose: 20 mg Documented By: KANE Pharmacy Consult (Consult Rx Etoh Phenob Im/Po) 1 each MISCELLANE ONCE PRN; Protocol PRN Reason: Consult order Sodium Chloride (0.9 % Sodium Chloride Flush 3 Ml Syringe) 3 ml IVFLUSH QSHIFT [facility] Last Admin: 11/14/24 07:47 Dose: 3 ml Documented By: RICKY Thiamine HCl (Thiamine Hcl 100 Mg Tablet) 100 mg PO DAILY [facility] Last Admin: 11/14/24 07:47 Dose: 100 mg Documented By: RICKY Labs 11/13/24 12:44 11/13/24 12:44 Assessment and Plan (1) Acute respiratory failure with hypoxia: Status: Acute Assessment and Plan: 54-year-old male with a past medical history of alcohol abuse and dependence and stigmata of chronic liver disease who was brought in by ambulance for what appeared to be intoxication. The patient has been found to have hypoxia requiring 3 L of supplemental oxygen as well as hypotension which has responded to intravenous fluids. He is exhibiting signs of withdrawal and given his hypoxia now will be admitted for further workup and treatment. Acute respiratory failure with hypoxia likely from aspiration PNA, remains hypoxic now off oxygen continue weaning off O2, and goal of dc without O2 as he patient wants to go back to streets not to a assisted or SNF completed course of antibiotics for PNA cxr -shows ? increased opacities new , ct chest -Diffuse bilateral ground-glass opacities, new/increased when compared to the prior examination., procalcitonin levels low 0.34 plan:d/w pulm abg noted :ph mainatained echo with bubble study to r/o pulm shunting also added trail of iv solumedrol -? possible areas of pneumonitison ct .Incentive spirometry--change to po prednisone by tomorrow Wean O2 down as tolerated, goal to wean off as he is unlikely to get Home O2 as he is homeless Acute alcohol withdrawal, no withdrawal symptoms has completed phenobarbital thiamine prerenal azotemia vs angelika: resolved. ALcoholic liver disease/cirrhosis with ascites hepatitis screen and hiv-nonreactive had paracentesis of 2.7 L removal on 10/23 added paracentesis today -has some ascitis on exam. continue midodrine Pancytpenia--d/t cirrhosis H/H trending down since admission no acute bleeding noted likely bone marrow suppression from etoh/chronic inflammation as well as acute illness iron 73 b12, folate HypOnatremia--d/t cirrhoss, resolved. Hypokalemia--resolved mild hypocalemia -calcium levels seems normal when corrected for hypoalbuminemia, resolved. DVT pptx -- mechanical due to thrombocytopenia Out of bed, ambulate with staff ongoing need for stay-Acute respiratory failure with hypoxia- need oxygen weaning and workup for pulm shunting, iv solumedrole ,wean oxygen ,patient agrees for rehab for dispo when stable. Quality Stroke Does the patient have a stroke diagnosis?: No VTE Prior VTE?: No VTE Risk Level:: Medical - moderate - high VTE Device Contraindication: N/A - Device Ordered VTE Drug Contraindication: Treatment Not Tolerated
[2024-11-14] MEDS: predniSONE 20 MG TABLET PO (16:16)
[2024-11-14] MEDS: Melatonin 3 MG TABLET 6 MG PO (21:23)
[2024-11-15] VITALS: BP 107/60; PULSE 63; RESP 17; TEMP 36.6; O2SAT 91
[2024-11-15 04:00] VITALS: BP 112/60; PULSE 79; RESP 18; TEMP 36.6; O2SAT 93
[2024-11-15] MEDS: Omeprazole 20 MG CAPSULE.DR PO (06:14)
[2024-11-15 07:40] VITALS: BP 110/60; PULSE 78; RESP 14; TEMP 36.9; O2SAT 93
[2024-11-15] MEDS: Albuterol/Iprat 2.5/0.5MG 3 ML AMPUL.NEB INHALE ×2 (07:55→11:47)
[2024-11-15 07:56] VITALS: PULSE 80; RESP 18; O2SAT 89
[2024-11-15] MEDS: Folic Acid 1 MG TABLET PO (09:20)
[2024-11-15] MEDS: Furosemide 20 MG TABLET PO (09:20)
[2024-11-15] MEDS: Midodrine HCl 5 MG TABLET PO (09:20)
[2024-11-15] MEDS: Thiamine HCL 100 MG TABLET PO (09:20)
[2024-11-15] MEDS: Magnesium Oxide 400 MG TABLET PO (09:20)
[2024-11-15] MEDS: predniSONE 20 MG TABLET PO (09:20)
[2024-11-15] MEDS: Multivitamin TABLET 1 TAB PO (09:20)
[2024-11-15] MEDS: Fluticasone Propionate Nasal 16 GM SPRAY 1 SPRAY NOSTRIL-B (09:22)
--- NOTE | 2024-11-15 10:45 | MHC.CM.PN ---
Pt has been medically cleared for DC, CM spoke with him again about going to a fpc, and he said he will not go, he is going to walk to where he stays behind the liquor store.
[2024-11-15 11:03] VITALS: BP 119/57; PULSE 85; RESP 16; TEMP 36.5; O2SAT 93
--- NOTE | 2024-11-15 11:20 | P.DS_ITS ---
DS: Providers Provider Date of admission: 10/21/24 08:48 Primary care physician: None Physician Consults: 10/23/24 09:34 Consult to Pulmonology Routine Consulting Provider: [facility] Reason for consultation: Acute hypodermic respiratory failure Has provider been notified: No 10/23/24 14:55 Consult to Gastroenterology Routine Consulting Provider: [facility] Reason for consultation: liver dis ,alcohol use,ascitis Has provider been notified: No 10/25/24 15:22 Consult to Nephrology Routine Consulting Provider: [facility] Reason for consultation: angelika 10/26/24 07:52 Consult to Critical Care Routine Consulting Provider: Darian Manning Reason for consultation: level of care Has provider been notified: No 11/08/24 12:29 Consult to Psychiatry Routine Consulting Provider: [facility] Psych Covering Reason for consultation: capacity eval Has provider been notified: No 11/08/24 13:17 Consult to Pulmonology Routine Consulting Provider: [facility] Reason for consultation: hypoxia unclear etiology Has provider been notified: No DS: Diagnosis Discharge Diagnosis (1) Acute respiratory failure with hypoxia: Status: Acute DS: Summary Hospital Course Hospital Course: admission hpi Chief Complaint: brought in by ambulance Patient is a 54-year-old male with a past medical history of alcohol abuse and dependence and alcoholic liver disease who presented to [facility] ED on 10/20/2024 when he was brought in by EMS for what appeared to be intoxication. In the ED, the patient was initially tolerant of oral fluids but did low blood pressures and hypoxia at 88%. He was treated with intravenous fluids and basic lab work was done. Patient is blood pressure did improve but however the patient's CIWA started to rise. He requires 3 L of supplemental oxygen and his chest x-ray is showing interstitial markings and patchy opacities. The patient has been treated with empiric antibiotics. He also is noted to have electrolyte abnormalities and his magnesium and potassium have been repleted as well. Given his persistent hypoxia as well as alcohol withdrawal, admission has been requested. The patient is seen and examined in the ED around 08:30. The patient currently reports feeling cold and tremulous. He thinks he is withdrawing. He reports a ongoing cough which is nonproductive. He denies any shortness of breath. He denies any fevers. He reports his last drink was prior to ED arrival. At this time his only request is to eat something. hospital course 54-year-old male with a past medical history of alcohol abuse and dependence and stigmata of chronic liver disease who was brought in by ambulance for what appeared to be intoxication. The patient has been found to have hypoxia requiring 3 L of supplemental oxygen as well as hypotension which has responded to intravenous fluids. He is exhibiting signs of withdrawal and given his hypoxia now will be admitted for further workup and treatment. Acute respiratory failure with hypoxia likely from aspiration PNA, completed IV Abx and had prolonged hypoxia and required oxygen for long time and was reassessed by pulmonary and put on steroid which seems to have made a difference and now off O2, likely post pneumonia pneumonitis. Will complete steroid suzie Acute alcohol withdrawal, completed phenobarbital and no withdsrawal symptoms at this time prerenal azotemia vs angelika: resolved. ALcoholic liver disease/cirrhosis with ascites hepatitis screen and hiv-nonreactive had paracentesis of 2.7 L removal on 10/23, repeat us on 11/11 small amount of ascietes Pancytpenia--d/t cirrhosis H/H trending down since admission no acute bleeding noted likely bone marrow suppression from etoh/chronic inflammation as well as acute illness iron 73 b12, folate HypOnatremia--d/t cirrhoss, resolved. Hypokalemia--resolved mild hypocalemia -calcium levels seems normal when corrected for hypoalbuminemia, resolved. Patient was consider for rehab when he was requiring oxygen but once he was off oxygen declined to go to rehab and woul like to be discharged and would figure out his living situation, he is alert, oriented and able to make an informed decision Time Attestation Discharge Coordination Time (in mins): 40 Quality: Safe Use of Opioids Does Pt have an Active Cancer Diagnosis on the Problem List?: No Quality: Stroke Does the patient have a stroke diagnosis?: No Physical Exam Vital Signs: Vital Signs: Last Vital Signs Temp 97.7 F 11/15/24 11:03 Pulse 85 11/15/24 11:03 Resp 16 11/15/24 11:03 BP 119/57 L 11/15/24 11:03 Pulse Ox 93 11/15/24 11:03 O2 Del Method Room Air 11/15/24 11:03 O2 Flow Rate 2 11/14/24 03:19 BMI result Body Mass Index 19.9 DS: Data Data Completed and Pending Completed studies during hospitalization [Text1]: Pending at discharge 10/23/24 09:53 Cytology [PTH] Urgent Discharge Plan Discharge Anticipated Discharge Date/Time: 11/15/24 11:35 Patient Disposition: Home, Self-Care Discharge Diagnosis: acute hypoxic respiratory failure due to pneumonia, encephalopathy, alcohol withdrawal, kidney failure Referrals: Physician,None [Primary Care Provider] - 1 Week Discharge Medications: New folic acid 1 mg Tablet 1 mg PO DAILY Qty: 90 0RF midodrine 5 mg Tablet 5 mg PO TID Qty: 180 0RF furosemide 20 mg Tablet 20 mg PO DAILY Qty: 90 0RF Protocol: Hold for SBP< HOLD for SBP < : 90 prednisone 10 mg tablet See Taper PO DAILY Qty: 20 0RF Taper: Prednisone 40 mg daily for 3 Days and 0 Hour 30 mg daily for 3 Days and 0 Hour 20 mg daily for 3 Days and 0 Hour 10 mg daily for 3 Days and 0 Hour omeprazole 20 mg Capsule,Delayed Release(Dr/Ec) 20 mg PO BID@0630,1630 Qty: 60 0RF thiamine mononitrate (vit B1) 100 mg Tablet 100 mg PO DAILY Qty: 90 0RF Discharge Orders: Discharge Order (Routine); Ordered 11/15/24 Ordered By: Alfred Nguyen Diet: Advance to usual diet Activity on Discharge: As tolerated Stand Alone Forms: Patient Portal Discharge page Print Language: Wolof Care Plan Goals: recovery from hospitalization for pneumonia, hypoxia, encephalopathy, kidney failure, liver cirrosis Health Concerns: see above Plan of Treatment: Stop drinking alcohol take prednisone as directed take folic acid, magnesium and thiamine suppplement Follow up with the health center in a week Assessment: see above Patient Instructions: Hypokalemia (ED), Alcohol Intoxication (ED), Hypomagnesemia (ED)
[2024-11-15 11:47] VITALS: PULSE 85; RESP 18; O2SAT 92
--- NOTE | 2024-11-28 07:04 | P.CDIM_ITS ---
PROVIDER RESPONSE TEXT: To clarify, the appropriate diagnosis supported by the clinical indicators: Toxic metabolic QUERY TEXT: PHYSICIAN'S DOCUMENTATION REQUEST Date of Query: 11/21/2024 08:04 AM EST Patient Name: Charbel Delgado Admit Date: 10/21/2024 Dear Alfred Nguyen MD, RETROSPECTIVE QUERY A review of the medical record indicates additional documentation may be needed. Please review below and update the documentation accordingly. Clinical Indicators: Discharge summary dated 11/15/24 - Acute hypoxic respiratory failure due to pneumonia, encephalopathy, alcohol withdrawal, kidney failure. IV fluids given in ED, CIWA. Alert and oriented, he thinks he is withdrawing cold and tremulous. PMH of alcohol abuse and dependence and stigmata of chronic liver disease who was brought in by jenny hutchinson for what appeared to be intoxication. Based on the above, please further specify, in the Progress Notes, the known or suspected type of the documented encephalopathy: Metabolic Toxic Toxic metabolic Alcoholic Other (explain) Clinically unable to determine (explain) Thank you, Rina Gutierrez, CCS, CDIS Use of terms such as suspected, likely, concern for, or probable (associated with a specific diagnosi s that is being evaluated, monitored, or treated as if it exists) are acceptable and can be coded in the inpatient se tting, when documented at the time of discharge. Please use your independent medical judgment in providing your response. THIS QUERY IS PART OF THE PERMANENT MEDICAL RECORD
== END 2024-11-15 12:15 | disposition home or self-care (01) | DRG 280 ==
LOC: HO.ED 10-21 07:26 → HO.EDOVER 10-21 08:49 → HO.IMC 10-21 16:28
PROVIDERS: Hospitalist; Internal Medicine; Internal Medicine Gastroenterology; Physician Assistant Medical; Physician Assistant Surgical; Admitting Provider Family Medicine; Emergency Provider Emergency Medicine; Visit Provider Internal Medicine
DX: K70.31 Alcoholic cirrhosis of liver with ascites (principal); J96.01 Acute respiratory failure with hypoxia; J69.0 Pneumonitis due to inhalation of food and vomit; I95.9 Hypotension, unspecified; N17.9 Acute kidney failure, unspecified; G92.8 Other toxic encephalopathy; D61.818 Other pancytopenia; D68.4 Acquired coagulation factor deficiency; E87.3 Alkalosis; E87.6 Hypokalemia; Y90.8 Blood alcohol level of 240 mg/100 ml or more; E87.1 Hypo-osmolality and hyponatremia; E83.51 Hypocalcemia; F10.239 Alcohol dependence with withdrawal, unspecified; F10.229 Alcohol dependence with intoxication, unspecified; Z59.02 Unsheltered homelessness; Z20.822 Contact with and (suspected) exposure to COVID-19; Z87.891 Personal history of nicotine dependence; Z79.899 Other long term (current) drug therapy
CPT/HCPCS: 0241U; 36415; 36600; 49083; 71045; 71250; 76705; 80048; 80053; 80202; 80307; 82042; 82140; 82248; 82565; 82607; 82728; 82746; 82784; 82803; 82945; 83540; 83605; 83615; 83735; 83880; 84145; 84157; 85014; 85018; 85025; 85027; 85048; 85049; 85610; 86704; 86706; 86709; 86803; 87040; 87070; 87073; 87205; 87340; 87389; 87449; 87633; 87640; 87641; 87899; 88112; 88305; 89051; 93005; 93306; 93308; 94640; 97116; 97162; 97530; 99285; J1940; J2003; J2060; J2543; J2560; J2919; J3370; J3371; J3411; J3475; J3480; J7120; P9047; Q9957

== ENCOUNTER → 2024-10-21 05:15 | Outpatient (BNV) | payer MEDICAID, SELFPAY | PROVIDERS: Admitting Provider Family Medicine; Emergency Provider Emergency Medicine; Visit Provider Internal Medicine Cardiovascular Disease | DX: I95.9 Hypotension, unspecified (principal) | CPT/HCPCS: 93010 ==

== ENCOUNTER 2024-10-21 08:48 | Outpatient (BNV) | payer MEDICAID, SELFPAY | END 2024-10-25 09:12 | PROVIDERS: Admitting Provider Family Medicine; Emergency Provider Emergency Medicine; Visit Provider Radiology Diagnostic Radiology | DX: J18.9 Pneumonia, unspecified organism (principal) | CPT/HCPCS: 71045 ==

== ENCOUNTER 2024-10-21 08:48 | Outpatient (BNV) | payer MEDICAID, SELFPAY | END 2024-10-23 13:00 | PROVIDERS: Admitting Provider Family Medicine; Emergency Provider Emergency Medicine; Visit Provider Physician Assistant Surgical | DX: R18.8 Other ascites (principal) | CPT/HCPCS: 49083 ==

== ENCOUNTER 2024-10-21 08:48 | Outpatient (BNV) | payer MEDICAID, SELFPAY | END 2024-11-11 07:00 | PROVIDERS: Admitting Provider Family Medicine; Emergency Provider Emergency Medicine; Visit Provider Internal Medicine Cardiovascular Disease | DX: Q21.10 Atrial septal defect, unspecified (principal) | CPT/HCPCS: 93304 ==

== ENCOUNTER 2024-10-21 08:48 | Outpatient (BNV) | payer MEDICAID, SELFPAY | END 2024-10-28 17:03 | PROVIDERS: Admitting Provider Family Medicine; Emergency Provider Emergency Medicine; Visit Provider Radiology Diagnostic Radiology | DX: E87.6 Hypokalemia (principal) | CPT/HCPCS: 76705 ==

== ENCOUNTER 2024-10-21 08:48 | Outpatient (BNV) | payer MEDICAID, SELFPAY | END 2024-11-11 14:45 | PROVIDERS: Admitting Provider Family Medicine; Emergency Provider Emergency Medicine; Visit Provider Radiology Diagnostic Radiology | DX: R18.8 Other ascites (principal) | CPT/HCPCS: 76705 ==

== ENCOUNTER 2024-10-21 08:48 | Outpatient (BNV) | payer MEDICAID, SELFPAY | END 2024-10-22 07:00 | PROVIDERS: Admitting Provider Family Medicine; Emergency Provider Emergency Medicine; Visit Provider Internal Medicine Cardiovascular Disease | DX: I35.8 Other nonrheumatic aortic valve disorders (principal); I51.89 Other ill-defined heart diseases | CPT/HCPCS: 93306 ==

== ENCOUNTER → 2024-10-21 08:48 | Outpatient (BNV) | payer MEDICAID, SELFPAY | PROVIDERS: Admitting Provider Family Medicine; Emergency Provider Emergency Medicine; Visit Provider Family Medicine | DX: J96.21 Acute and chronic respiratory failure with hypoxia (principal); J69.0 Pneumonitis due to inhalation of food and vomit | CPT/HCPCS: 99223; 99232 ==

== ENCOUNTER → 2024-10-21 08:48 | Outpatient (BNV) | payer MEDICAID, SELFPAY | PROVIDERS: Admitting Provider Family Medicine; Emergency Provider Emergency Medicine; Visit Provider Hospitalist | DX: J69.0 Pneumonitis due to inhalation of food and vomit (principal); J96.21 Acute and chronic respiratory failure with hypoxia; G31.2 Degeneration of nervous system due to alcohol; F10.90 Alcohol use, unspecified, uncomplicated | CPT/HCPCS: 99223 ==

== ENCOUNTER → 2024-10-21 08:48 | Outpatient (BNV) | payer MEDICAID, SELFPAY | PROVIDERS: Admitting Provider Family Medicine; Emergency Provider Emergency Medicine; Visit Provider Nurse Practitioner Family | DX: N17.9 Acute kidney failure, unspecified (principal); F10.90 Alcohol use, unspecified, uncomplicated; K70.9 Alcoholic liver disease, unspecified | CPT/HCPCS: 99222; 99232 ==

== ENCOUNTER → 2024-10-21 08:48 | Outpatient (BNV) | payer OTHER, SELFPAY | PROVIDERS: Admitting Provider Family Medicine; Emergency Provider Emergency Medicine; Visit Provider Registered Nurse | DX: F10.939 Alcohol use, unspecified with withdrawal, unspecified (principal) | CPT/HCPCS: 99232 ==

== ENCOUNTER → 2024-10-21 08:48 | Outpatient (BNV) | payer MEDICAID, SELFPAY | PROVIDERS: Admitting Provider Family Medicine; Emergency Provider Emergency Medicine; Visit Provider Internal Medicine Gastroenterology | DX: J96.21 Acute and chronic respiratory failure with hypoxia (principal) | CPT/HCPCS: 99223 ==

== ENCOUNTER 2024-11-20 13:38 | Emergency (ER) | payer MEDICAID, SELFPAY ==
--- NOTE | ~2024-11-20 | CT_ITS ---
CLINICAL HISTORY: intoxicated, fall CT head without contrast Comparison: None Findings: No acute hemorrhage. Basal ganglia calcifications. No extra-axial fluid collection. No hydrocephalus, mass-effect or herniation. Weaver-white differentiation is maintained. There is patchy hypoattenuation of the periventricular and deep white matter, which is most likely the sequela of mild chronic small vessel ischemic disease. No acute orbital pathology. No acute soft tissue abnormality. No fracture. The visualized paranasal sinuses are predominantly clear. The mastoid air cells are clear. Impression: No acute findings. This document has been electronically signed by: Valorie Quiles MD on 11/20/2024 16:41:50
--- NOTE | ~2024-11-20 | CT_ITS ---
CLINICAL HISTORY: intoxicated, fall CT cervical spine without contrast Comparison: 05/11/24 Findings: Mild multilevel anterolisthesis and retrolisthesis, degenerative. Unchanged mild exaggeration of the normal cervical lordosis. No fracture. No severe central spinal canal stenosis. No epidural hematoma. Normal thickness of the prevertebral soft tissues. The lung apices are clear. Impression: No acute findings. This document has been electronically signed by: Valorie Quiles MD on 11/20/2024 16:25:23
[2024-11-20 13:48] VITALS: BP 107/50; PULSE 83; RESP 20; TEMP 36.9; O2SAT 95; BMI 19.4
[2024-11-20 13:51] VITALS: BP 120/64; PULSE 86; O2SAT 96
[2024-11-20 14:28] VITALS: BP 99/40; PULSE 83; RESP 16; TEMP 36.9; O2SAT 93
--- NOTE | 2024-11-20 17:13 | ED.GENADULT ---
HPI - General Adult General Chief complaint: Fall Stated complaint: ETOH fall Time Seen by Provider: 11/20/24 15:02 Source: patient Mode of arrival: EMS History of Present Illness ED Provider: Raúl VIVAR narrative: 54-year-old male who states that he fell in front of a liquor store. Related Data Previous Rx's ?Medication ?Instructions ?Recorded folic acid 1 mg tablet 1 mg PO DAILY #90 tabs 11/15/24 furosemide 20 mg tablet 20 mg PO DAILY #90 tabs 11/15/24 magnesium oxide 400 mg (241.3 mg 400 mg PO BIDPC #180 tabs 11/15/24 magnesium) tablet midodrine 5 mg tablet 5 mg PO TID #180 tabs 11/15/24 omeprazole 20 mg capsule,delayed 20 mg PO BID@0630,1630 #60 caps 11/15/24 release prednisone 10 mg tablet See Taper PO DAILY #20 tabs 11/15/24 thiamine mononitrate (vit B1) 100 100 mg PO DAILY #90 tabs 11/15/24 mg tablet Allergies Allergy/AdvReac Type Severity Reaction Status Date / Time No Known Allergies Allergy Verified 11/20/24 13:50 [No Known Allergies*] Review of Systems Review of Systems: Pertinent positives and negatives as stated in HPI [facility] Past Medical History Source: nursing notes reviewed Medical History Alcoholic liver disease Aspiration pneumonia Thrombocytopenia Malnutrition CHF (congestive heart failure) Anemia Hypomagnesemia Cirrhosis Thrombocytopenia Acute on chronic anemia CHF (congestive heart failure) Anemia Pneumonia Alcohol abuse Alcohol withdrawal syndrome Surgical History No history of previous surgery Social History Social History Household Members: None Household Members Other:: pt homeless Housing: Homeless Housing Other:: homeless Do you presently have visiting nurse or other home services: No Unable to assess alcohol history related to: Refusing to respond Alcohol intake: current Alcohol intake frequency: 3 or more drinks per day Alcohol type: beer and hard liquor Comment: 1 assist to bathroom Patient Tobacco Use Status: Former Tobacco user Tobacco use type: Cigarette Second Hand Smoke Exposure: No Advance Directives: Yes Advance Directives on File: Yes Advance Directives Date on File: 07/13/23 service: No Physical Exam ED Vital Signs: Vital Signs - 24 hr 11/20/24 13:48 11/20/24 14:28 Temperature 98.4 F 98.5 F Pulse Rate 83 83 Respiratory Rate 20 16 Blood Pressure 107/50 L 99/40 L Pulse Oximetry 95 93 Oxygen Delivery Method Room Air Room Air BMI result Body Mass Index 19.4 VITAL SIGNS: Reviewed. GENERAL: Well developed, well nourished, in no acute distress. HEAD: Normocephalic/left eyebrow contusion EYES: PERRLA, EOMI EARS: Ext canals without abnormality NOSE: Nares patent bilateral OROPHARYNX: no oral lesions noted, posterior pharynx clear NECK: C-collar in place, there is no midline cervical spine tenderness to palpation or step-offs noted LUNGS: Normal breath sounds. No adventitious sounds or accessory muscle use. CARDIOVASCULAR: Regular rate and rhythm without noted murmurs ABDOMEN: Soft, non-tender, non-distended with bowel sounds. MUSCULOSKELETAL: No tenderness, deformities, or effusions noted on gross inspection. EXTREMITIES: No cyanosis, clubbing or edema. SKIN: Inspection of the skin reveals no rashes NEUROLOGIC: Alert and oriented x 4. Strength and sensation to light touch were grossly intact x 4. Medical Decision Making Medical Decision Making MDM Narrative: 54-year-old male with intoxicated fall without loss of consciousness, CT scan is negative for intracranial hemorrhage or mass effect and cervical spine is negative for fracture or subluxation otherwise my interpretation is in agreement with radiology's impression. C-collar was successfully cleared, patient is still clinically intoxicated will need to be observed until he is clinically sober. Patient placed in physician observation because the patient needed more time for clinical sobriety. At the time observation was started the patient's vital signs were stable, patient is alert and oriented, neuro: Nonfocal, CV RRR, lungs clear Differential Diagnosis Differential Diagnoses: The differential diagnosis associated with the presentation includes See above Admission/Observation Consideration of admission/observation: Escalation of care including admission/observation considered Patient does not meet inpatient level of care. Independent Interpretation I performed an independent interpretation of an: CT Scan Interpretation: See above External Record Review External record reviewed: Prior outpatient labs and Prior outpatient radiology Social Determinants Patient?s care significantly limited by Social Determinants of Health including: Alcoholism and drug addiction in family Discharge Plan Discharge Clinical Impression: Fall, Alcohol intoxication, Alcohol abuse Patient Disposition: Still a Patient Instructions: Alcohol Intoxication (ED), Abuse of Alcohol (DC), Fall Prevention for Older Adults (ED) Additional Instructions: Return to the ER for any worsening symptoms. Prescriptions: No Action midodrine 5 mg Tablet 5 mg PO TID Qty: 180 0RF furosemide 20 mg Tablet 20 mg PO DAILY Qty: 90 0RF Protocol: Hold for SBP< HOLD for SBP < : 90 prednisone 10 mg tablet See Taper PO DAILY Qty: 20 0RF Taper: Prednisone 40 mg daily for 3 Days and 0 Hour 30 mg daily for 3 Days and 0 Hour 20 mg daily for 3 Days and 0 Hour 10 mg daily for 3 Days and 0 Hour omeprazole 20 mg Capsule,Delayed Release(Dr/Ec) 20 mg PO BID@0630,1630 Qty: 60 0RF folic acid 1 mg Tablet 1 mg PO DAILY Qty: 90 0RF thiamine mononitrate (vit B1) 100 mg Tablet 100 mg PO DAILY Qty: 90 0RF magnesium oxide 400 mg (241.3 mg magnesium) Tablet 400 mg PO BIDPC Qty: 180 0RF Print Language: Tajik
[2024-11-20 17:58] VITALS: BP 99/40; PULSE 83; RESP 16; TEMP 36.9; O2SAT 93
== END 2024-11-20 17:59 | disposition left against medical advice (07) ==
PROVIDERS: Emergency Provider Student in an Organized Health Care Education/Training Program
DX: S09.90XA Unspecified injury of head, initial encounter (principal); F10.129 Alcohol abuse with intoxication, unspecified; Y90.9 Presence of alcohol in blood, level not specified; M54.2 Cervicalgia; R51.9 Headache, unspecified; W18.30XA Fall on same level, unspecified, initial encounter; Y93.89 Activity, other specified; Y92.89 Other specified places as the place of occurrence of the external cause; Y99.8 Other external cause status; Z87.891 Personal history of nicotine dependence; Z79.899 Other long term (current) drug therapy
CPT/HCPCS: 70450; 72125; 99283; 99284

== ENCOUNTER → 2024-11-20 15:01 | Outpatient (BNV) | payer MEDICAID, SELFPAY | PROVIDERS: Emergency Provider Student in an Organized Health Care Education/Training Program; Visit Provider Radiology Diagnostic Radiology | DX: S09.90XA Unspecified injury of head, initial encounter (principal) | CPT/HCPCS: 70450; 72125 ==

== ENCOUNTER 2024-11-23 17:33 | Emergency (ER) | payer MEDICAID, SELFPAY ==
[2024-11-23 17:39] VITALS: BP 136/92; PULSE 79; O2SAT 94
[2024-11-23 17:53] VITALS: BMI 16.3
[2024-11-23 18:02] VITALS: BP 127/54; PULSE 69; RESP 18; TEMP 36.7; O2SAT 93
--- NOTE | 2024-11-23 18:06 | PC.NURSE ---
Pt comes to ED today via EMS for complaints of LLE pain. Pt reports he walks a significant amount daily causing increased pain. Pt is alert and oriented to person, day, and yr. He reports drinking 3 beers today and presents with some slurred speech at times. VSS, afebrile Skin is warm and dry Breaths and speech are unlabored. Facial symmetry noted. Awaiting provider.
--- NOTE | 2024-11-23 19:32 | ED_ITS ---
HPI - General Adult General Chief complaint: Extremity Injury, Lower Stated complaint: Etoh, L leg pain Time Seen by Provider: 11/23/24 19:31 History of Present Illness ED Provider: Marty VIVAR narrative: The patient is a 54-year-old male with a history of chronic alcoholism and homelessness. He has a history of multiple emergency room visits mostly for alcohol-related problems. He comes today saying that he has pain in his left foot and in his left shoulder. He says he has not fallen recently. He says he is homeless. He says there is a place that he usually stays where he has blankets he can cover up with. Related Data Previous Rx's ?Medication ?Instructions ?Recorded folic acid 1 mg tablet 1 mg PO DAILY #90 tabs 11/15/24 furosemide 20 mg tablet 20 mg PO DAILY #90 tabs 11/15/24 magnesium oxide 400 mg (241.3 mg 400 mg PO BIDPC #180 tabs 11/15/24 magnesium) tablet midodrine 5 mg tablet 5 mg PO TID #180 tabs 11/15/24 omeprazole 20 mg capsule,delayed 20 mg PO BID@0630,1630 #60 caps 11/15/24 release prednisone 10 mg tablet See Taper PO DAILY #20 tabs 11/15/24 thiamine mononitrate (vit B1) 100 100 mg PO DAILY #90 tabs 11/15/24 mg tablet Allergies Allergy/AdvReac Type Severity Reaction Status Date / Time No Known Allergies Allergy Verified 11/23/24 17:55 [No Known Allergies*] Review of Systems Review of Systems: Yes all other systems are reviewed and are negative PMFSH Past Medical History Medical History Alcoholic liver disease Aspiration pneumonia Thrombocytopenia Malnutrition CHF (congestive heart failure) Anemia Hypomagnesemia Cirrhosis Thrombocytopenia Acute on chronic anemia CHF (congestive heart failure) Anemia Pneumonia Alcohol abuse Alcohol withdrawal syndrome Surgical History No history of previous surgery Social History Social History Household Members: None Household Members Other:: pt homeless Housing: Homeless Housing Other:: homeless Do you presently have visiting nurse or other home services: No Unable to assess alcohol history related to: Refusing to respond Alcohol intake: current Alcohol intake frequency: 3 or more drinks per day Alcohol type: beer Comment: 1 assist to bathroom Patient Tobacco Use Status: Former Tobacco user Tobacco use type: Cigarette Smoked in Last 30 Days: No Second Hand Smoke Exposure: No Use of substances other than those prescribed or required for medical reasons: No Advance Directives: Yes Advance Directives on File: Yes Advance Directives Date on File: 07/13/23 Do you have a plan to hurt others: No Plan service: No Physical Exam ED Vital Signs: Vital Signs - 24 hr 11/23/24 18:02 11/23/24 21:55 Temperature 98.1 F 99.8 F Pulse Rate 69 95 Respiratory Rate 18 18 Blood Pressure 127/54 L 125/57 L Pulse Oximetry 93 94 Oxygen Delivery Method Room Air Room Air BMI result Body Mass Index 16.3 Const Other: The patient is a chronically ill-appearing, somewhat cachectic 54-year-old. He is poorly kempt. He does not appear in acute distress HENMT Other: Face is symmetrical, mucous membranes moist Eyes General: appearance normal, both eyes and all related structures Conjunctivae: conjunctivae normal Sclerae: sclerae normal EOM: EOMs intact bilaterally Neck Neck: Yes full ROM Resp Effort & Inspection: normal respiratory effort Auscultation: clear to auscultation bilaterally Cardio Rate: regular rate Rhythm: regular rhythm Heart sounds: S1 normal heart sound present and S2 normal heart sound present GI Other: Abdomen is soft and nontender Skin Other: Skin is intact. Neuro Other: The patient was sleeping. He awoke easily with gentle stimulation. He was then awake. He does not seem obviously intoxicated. His mental status seemed typical of his usual mental status. Cranial nerves are grossly intact. He moves his extremities normally and appropriately Extrem Other: No peripheral edema. No obvious soft tissue swelling my deformity. He seems able to move his knees, ankles, and toes. He seems to have some generalized tenderness to both feet but no focal tenderness. Medical Decision Making Medical Decision Making MDM Narrative: The patient is a 54-year-old male who is a homeless alcoholic. He spends lot of time on his feet. He says he drinks about 4 beers a day. 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 He is here today complaining of some pain in his left foot but also some pain in his right foot. He denies any injury. He does not have much in the way of physical findings. I think the patient probably spends too much time in his feet and he is having some foot pain related to overuse. The patient will be kept in the emergency room overnight so that he can stay off his feet and rest his feet. My expectation is he will want discharge in the morning. Discharge Plan Discharge Clinical Impression: Foot pain, Alcohol abuse, Homeless Patient Disposition: Home, Self-Care Additional Instructions: Please try to stay off your feet as much as possible. I think your foot pain is from too much walking. Also please try to reduce your alcohol intake. If you want to talk to somebody about your alcohol use you can contact Namrata Lindo who runs the [facility] here at [facility]. Return to the emergency room if worse. Prescriptions: No Action midodrine 5 mg Tablet 5 mg PO TID Qty: 180 0RF furosemide 20 mg Tablet 20 mg PO DAILY Qty: 90 0RF Protocol: Hold for SBP< HOLD for SBP < : 90 prednisone 10 mg tablet See Taper PO DAILY Qty: 20 0RF Taper: Prednisone 40 mg daily for 3 Days and 0 Hour 30 mg daily for 3 Days and 0 Hour 20 mg daily for 3 Days and 0 Hour 10 mg daily for 3 Days and 0 Hour omeprazole 20 mg Capsule,Delayed Release(Dr/Ec) 20 mg PO BID@0630,1630 Qty: 60 0RF folic acid 1 mg Tablet 1 mg PO DAILY Qty: 90 0RF thiamine mononitrate (vit B1) 100 mg Tablet 100 mg PO DAILY Qty: 90 0RF magnesium oxide 400 mg (241.3 mg magnesium) Tablet 400 mg PO BIDPC Qty: 180 0RF Referrals: [facility] [Provider Group] Namrata Lindo, JAMESON [Nurse Practitioner] - (Alcohol abuse) Print Language: Bolivian
[2024-11-23 21:55] VITALS: BP 125/57; PULSE 95; RESP 18; TEMP 37.7; O2SAT 94
[2024-11-24 06:13] VITALS: BP 108/55; PULSE 69; RESP 14; TEMP 37.4; O2SAT 98
[2024-11-24 07:12] VITALS: BP 108/55; PULSE 69; RESP 14; TEMP 37.4; O2SAT 98
== END 2024-11-24 07:32 | disposition home or self-care (01) ==
PROVIDERS: Emergency Provider Emergency Medicine
DX: M79.672 Pain in left foot (principal); M79.671 Pain in right foot; F10.10 Alcohol abuse, uncomplicated; Y90.9 Presence of alcohol in blood, level not specified; Z59.02 Unsheltered homelessness; Z87.891 Personal history of nicotine dependence; Z79.899 Other long term (current) drug therapy
CPT/HCPCS: 99284

== ENCOUNTER 2024-11-26 09:09 | Emergency (ER) | payer MEDICAID, SELFPAY ==
[2024-11-26 09:19] VITALS: BP 132/91; PULSE 78; O2SAT 97
[2024-11-26 09:21] VITALS: BP 124/49; PULSE 74; RESP 20; TEMP 36.2; O2SAT 94; BMI 19.4
[2024-11-26 09:37] VITALS: BP 124/49; PULSE 74; RESP 20; TEMP 36.2; O2SAT 94
--- NOTE | 2024-11-26 09:41 | PC.NURSE ---
Pt. arrives to ED [facility] visibly intoxicated and with unsteady gait requiring two-assist, stating that he wants a place to sleep
--- NOTE | 2024-11-26 09:46 | ED_ITS ---
HPI - Psych General Chief Complaint: ETOH/Substance Use Stated Complaint: ETOH USE,HOMELESS,COLD/SHIVERING PER EMS Time Seen by Provider: 11/26/24 09:46 Source: patient, EMS and old records reviewed Mode of arrival: EMS Limitations: no limitations History of Present Illness ED Provider: ISAIAS HPI Narrative: 54 yo male with PMH of ETOH use disorder hx of anemia/cirrhosis/variceal bleeding here with c/o being outside in cold and needs a warm place to stay. He has no other complaints no SI/HI. He hasn't had his labs checked here in almost 2 weeks. He is hungry and tired. MD complaint: alcohol abuse Onset (ago): year(s) Duration: constant History of same: Yes Relieving factors: none Exacerbating factors: other Context: recent alcohol abuse and significant life stressor Associated psychiatric symptoms: none Associated symptoms: denies other symptoms Treatments prior to arrival: none Related Data Previous Rx's ?Medication ?Instructions ?Recorded folic acid 1 mg tablet 1 mg PO DAILY #90 tabs 11/15/24 furosemide 20 mg tablet 20 mg PO DAILY #90 tabs 11/15/24 magnesium oxide 400 mg (241.3 mg 400 mg PO BIDPC #180 tabs 11/15/24 magnesium) tablet midodrine 5 mg tablet 5 mg PO TID #180 tabs 11/15/24 omeprazole 20 mg capsule,delayed 20 mg PO BID@0630,1630 #60 caps 11/15/24 release prednisone 10 mg tablet See Taper PO DAILY #20 tabs 11/15/24 thiamine mononitrate (vit B1) 100 100 mg PO DAILY #90 tabs 11/15/24 mg tablet Allergies Allergy/AdvReac Type Severity Reaction Status Date / Time No Known Allergies Allergy Verified 11/26/24 09:36 [No Known Allergies*] Review of Systems 2 Review of Systems: Constitutional : No Weight loss, No Fever, No Chills ENT/Mouth : No sore throat, No Rhinorrhea Eyes: No Eye Pain, No Swelling Cardiovascular : no Chest Pain, no SOB, no Dyspnea on Exertion, No Orthopnea, No Edema, No Palpitations Respiratory : No Cough, No Sputum Gastrointestinal : no Nausea, No Vomiting, No Diarrhea, No abdominal Pain, No Hematochezia, No Melena Genitourinary : No Dysuria, No Urinary Frequency Musculoskeletal : No joint pain, No Myalgias, No Joint Swelling Skin : No Skin Lesions, No rash Neuro : No Weakness, No Numbness, No Dizziness, No Headache Psych: no SI/HI All other systems reviewed and are negative [facility] Past Medical History Attestation statement: The following information was validated with the patient. Source: old records reviewed Medical History Alcoholic liver disease Aspiration pneumonia Thrombocytopenia Malnutrition CHF (congestive heart failure) Anemia Hypomagnesemia Cirrhosis Thrombocytopenia Acute on chronic anemia CHF (congestive heart failure) Anemia Pneumonia Alcohol abuse Alcohol withdrawal syndrome Surgical History No history of previous surgery Social History Social History Household Members: None Household Members Other:: pt homeless Housing: Homeless Housing Other:: homeless Do you presently have visiting nurse or other home services: No Unable to assess alcohol history related to: Refusing to respond Alcohol intake: current Alcohol intake frequency: 3 or more drinks per day Alcohol type: beer and hard liquor Comment: 1 assist to bathroom Patient Tobacco Use Status: Former Tobacco user Tobacco use type: Cigarette Smoked in Last 30 Days: Yes Second Hand Smoke Exposure: No Use of substances other than those prescribed or required for medical reasons: No Advance Directives: Yes Advance Directives on File: Yes Advance Directives Date on File: 07/13/23 Do you have a plan to hurt others: No Plan service: No Physical Exam 2 Vital Signs: Vital Signs: Last Vital Signs Temp 97.2 F 11/26/24 09:37 Pulse 74 11/26/24 09:37 Resp 20 11/26/24 09:37 BP 124/49 L 11/26/24 09:37 Pulse Ox 94 11/26/24 09:37 O2 Del Method Room Air 11/26/24 09:37 BMI result Body Mass Index 19.4 Appearance: Alert. Oriented X3. No acute distress. Eyes: Pupils equal, round and reactive to light. ENT: Pharynx normal. Neck: Normal inspection. Neck supple. CVS: Normal heart rate and rhythm. Pulses normal. Respiratory: No respiratory distress. Breath sounds normal. Abdomen: Soft and nontender. Skin: Skin warm and dry. pale skin color. Normal skin turgor. Extremities: No lower extremity edema. No calf ttp Neuro: Oriented X 3. No motor deficit. No sensory deficit. 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 Will obtain basic labs and monitor on CIWA. NO SI/HI Differential Diagnosis Differential Diagnoses: The differential diagnosis associated with the presentation includes ETOH abuse, homelessness Admission/Observation Consideration of admission/observation: Escalation of care including admission/observation considered physician observation started at 955am pending improvement and sobriety patient up and walking he does not want shelters or detox he refuses a skilled nursing list. he is clinically sober alert and oriented with steady gait he is stable for DC Lab Data [place] Lab Attestation statement: I reviewed the patient's lab results. 11/26/24 12:05 11/26/24 12:05 Labs: Lab Results 11/26/24 Range/Units 12:05 WBC 4.0 L (4.8-10.8) X10*3/uL RBC 2.48 L (4.60-5.80) X10*6/uL Hgb 8.3 L (14.0-18.0) g/dl Hct 25.2 L (42.0-52.0) % MCV 101.6 H (80.0-98.0) fL MCH 33.5 H (27.0-33.0) pg MCHC 32.9 (31.0-36.0) g/dl RDW 14.7 (11.0-16.0) % Plt Count 48 L D (160-400) X10*3/uL MPV 11.7 (9.4-12.4) fL Immature Gran % (Auto) 0.5 H (0.0-0.4) % Neut % (Auto) 67.7 (45-73) % Lymph % (Auto) 21.3 (20-40) % Amelia % (Auto) 7.5 (2-11) % Eos % (Auto) 2.5 (0-4) % Baso % (Auto) 0.5 (0-2) % Lymph # (Auto) 0.9 L (1.2-4.9) X10*3/uL Amelia # (Auto) 0.3 (0.1-1.2) X10*3/uL Eos # (Auto) 0.1 (0.0-0.4) X10*3/uL Baso # (Auto) 0.0 (0.0-0.2) X10*3/uL Abs Immat Gran (auto) 0.02 (0.00-0.03) X10*3/uL Absolute Neuts (auto) 2.7 (2.0-8.3) x10*3/uL Absolute Nucleated RBC 0.000 (0.0-0.012) X10*3/uL Nucleated RBC % (auto) 0.0 (0.0-0.2) /100WBC Sodium 145 (135-145) mmol/L Potassium 3.3 (3.3-5.1) mmol/L Chloride 113 H (96-108) mmol/L Carbon Dioxide 26 (22-29) mmol/L Anion Gap 9 L (12-20) BUN 16 (9-16) mg/dL Creatinine 0.70 (0.5-1.4) mg/dL Estim Creat Clear Calc 91.7 Estimated GFR > 60 Random Glucose 105 (60-115) mg/dL Calcium 8.2 L D (8.4-10.2) mg/dL Magnesium 1.9 (1.6-2.6) mg/dL Total Bilirubin 0.9 (0.0-1.0) mg/dL Direct Bilirubin 0.4 (0.0-0.5) mg/dL AST 61 H (5-37) U/L ALT 33 (0-40) U/L Alkaline Phosphatase 105 (39-117) U/L Total Protein 7.7 (6.5-8.0) g/dL Albumin 3.8 (3.5-5.0) g/dL Ethyl Alcohol 269 mg/dL Independent Historian Clinical information obtained from an independent historian. History obtained from or confirmed by: EMS External Record Review External record reviewed: Outpatient record Social Determinants Patient?s care significantly limited by Social Determinants of Health including: Inadequate housing, Low income and Problems related to primary support group Discharge Plan Discharge Clinical Impression: Alcoholic intoxication Patient Disposition: Home, Self-Care Instructions: Alcohol Use Disorder (ED) Additional Instructions: Alcohol use disorder You were seen in the Emergency Department today for treatment of alcohol use disorder.? You may have been given medications to help with your withdrawal symptoms.? Please do not drink alcohol with them. This is very dangerous and can cause respiratory depression or other adverse reactions depending on the medication. If you would like to cut down or stop your alcohol use please consider calling our outpatient Addiction Treatment office:? [facility] (-F [id number]) [address] [place] [address] [address] ? You have also been given a list of treatment providers in the area that can assist as well.? If you experience seizures, vomiting blood, black stools, falls, severe headache, chest pain, fevers, trouble breathing, hallucinations or any other concerns you need to call 911 or seek immediate care. Please stay hydrated. Prescriptions: No Action midodrine 5 mg Tablet 5 mg PO TID Qty: 180 0RF furosemide 20 mg Tablet 20 mg PO DAILY Qty: 90 0RF Protocol: Hold for SBP< HOLD for SBP < : 90 prednisone 10 mg tablet See Taper PO DAILY Qty: 20 0RF Taper: Prednisone 40 mg daily for 3 Days and 0 Hour 30 mg daily for 3 Days and 0 Hour 20 mg daily for 3 Days and 0 Hour 10 mg daily for 3 Days and 0 Hour omeprazole 20 mg Capsule,Delayed Release(Dr/Ec) 20 mg PO BID@0630,1630 Qty: 60 0RF folic acid 1 mg Tablet 1 mg PO DAILY Qty: 90 0RF thiamine mononitrate (vit B1) 100 mg Tablet 100 mg PO DAILY Qty: 90 0RF magnesium oxide 400 mg (241.3 mg magnesium) Tablet 400 mg PO BIDPC Qty: 180 0RF Print Language: Tuvaluan
[2024-11-26 12:09] LABS: MANUAL DIFF FLAG NO
[2024-11-26 12:11] LABS: Basophils Percent Auto 0.5 % (0-2); Eosinophils Absolute Auto 0.1 X10*3/uL (0.0-0.4); Eosinophils Percent Auto 2.5 % (0-4); Hematocrit 25.2 % (42.0-52.0); Hemoglobin 8.3 g/dl (14.0-18.0); Imm Gran Abs Auto 0.02 X10*3/uL (0.00-0.03); Imm Gran Pct Auto 0.5 % (0.0-0.4); Lymphocytes Absolute Auto 0.9 X10*3/uL (1.2-4.9); Lymphocytes Percent Auto 21.3 % (20-40); Mean Corpuscular HGB Conc 32.9 g/dl (31.0-36.0); Mean Corpuscular Hemoglobin 33.5 pg (27.0-33.0); Mean Corpuscular Volume 101.6 fL (80.0-98.0); Mean Platelet Volume 11.7 fL (9.4-12.4); Monocytes Absolute Auto 0.3 X10*3/uL (0.1-1.2); Monocytes Percent Auto 7.5 % (2-11); Neutrophils Absolute Auto 2.7 x10*3/uL (2.0-8.3); Neutrophils Percent Auto 67.7 % (45-73); Red Blood Count 2.48 X10*6/uL (4.60-5.80); Red Cell Distribution Width 14.7 % (11.0-16.0)
[2024-11-26 12:14] LABS: Platelet Count 48 X10*3/uL (160-400)
--- NOTE | 2024-11-26 12:26 | PC.NURSE ---
Notifying special tester of pt.'s lab results and determining whether or not pt. needs to be moved to main ED
[2024-11-26 12:31] LABS: Alanine Aminotransferase 33 U/L (0-40); Albumin Level 3.8 g/dL (3.5-5.0); Alkaline Phosphatase 105 U/L (39-117); Anion Gap 9 (12-20); Aspartate Amino Transferase 61 U/L (5-37); Bilirubin Direct 0.4 mg/dL (0.0-0.5); Bilirubin Total 0.9 mg/dL (0.0-1.0); Blood Urea Nitrogen 16 mg/dL (9-16); Calcium 8.2 mg/dL (8.4-10.2); Carbon Dioxide 26 mmol/L (22-29); Chloride 113 mmol/L (96-108); Creatinine Clr Calc Pharmacy 91.7; Estimated Glomerular Filt Rate > 60; Ethanol 269 mg/dL; Glucose Random 105 mg/dL (60-115); Magnesium 1.9 mg/dL (1.6-2.6); Potassium 3.3 mmol/L (3.3-5.1); Sodium 145 mmol/L (135-145); Total Protein 7.7 g/dL (6.5-8.0)
[2024-11-26 17:41] VITALS: BP 106/64; PULSE 81; RESP 16; TEMP 36.6; O2SAT 96
== END 2024-11-26 17:41 | disposition home or self-care (01) ==
PROVIDERS: Emergency Provider Emergency Medicine
DX: F10.120 Alcohol abuse with intoxication, uncomplicated (principal); Y90.8 Blood alcohol level of 240 mg/100 ml or more
CPT/HCPCS: 36415; 80048; 80076; 80307; 83735; 85025; 99284

== ENCOUNTER 2024-11-26 20:38 | Emergency (ER) | payer MEDICAID, SELFPAY ==
--- NOTE | 2024-11-26 21:09 | ED_ITS ---
HPI - Alcohol General Chief Complaint: ETOH/Substance Use Stated Complaint: ETOH Time Seen by Provider: 11/26/24 20:46 Source: patient and EMS Mode of arrival: EMS Limitations: altered mental status (Acute intoxication) History of Present Illness ED Provider: Vanessa Lopez NP HPI narrative: Patient is a 54-year-old male past medical history of alcohol use disorder, anemia, cirrhosis, variceal bleeding presents emergency department via EMS, bystanders called due to him being outside and obviously intoxicated. He states he is here because he drank a lot today. Denies any recent falls or injuries. Requesting to sleep at this time. Denies SI/HI. Related Data Previous Rx's ?Medication ?Instructions ?Recorded folic acid 1 mg tablet 1 mg PO DAILY #90 tabs 11/15/24 furosemide 20 mg tablet 20 mg PO DAILY #90 tabs 11/15/24 magnesium oxide 400 mg (241.3 mg 400 mg PO BIDPC #180 tabs 11/15/24 magnesium) tablet midodrine 5 mg tablet 5 mg PO TID #180 tabs 11/15/24 omeprazole 20 mg capsule,delayed 20 mg PO BID@0630,1630 #60 caps 11/15/24 release prednisone 10 mg tablet See Taper PO DAILY #20 tabs 11/15/24 thiamine mononitrate (vit B1) 100 100 mg PO DAILY #90 tabs 11/15/24 mg tablet Allergies Allergy/AdvReac Type Severity Reaction Status Date / Time No Known Allergies Allergy Verified 11/26/24 21:59 [No Known Allergies*] Review of Systems Review of Systems: Yes all other systems are reviewed and are negative PMFSH Past Medical History Attestation statement: The following information was validated with the patient. Source: old records reviewed Medical History Alcoholic liver disease Aspiration pneumonia Thrombocytopenia Malnutrition CHF (congestive heart failure) Anemia Hypomagnesemia Cirrhosis Thrombocytopenia Acute on chronic anemia CHF (congestive heart failure) Anemia Pneumonia Alcohol abuse Alcohol withdrawal syndrome Surgical History No history of previous surgery Social History Social History Household Members: None Household Members Other:: pt homeless Housing: Homeless Housing Other:: homeless Do you presently have visiting nurse or other home services: No Unable to assess alcohol history related to: Refusing to respond Alcohol intake: current Alcohol intake frequency: 3 or more drinks per day Alcohol type: beer and hard liquor Comment: 1 assist to bathroom Patient Tobacco Use Status: Former Tobacco user Tobacco use type: Cigarette Second Hand Smoke Exposure: No Advance Directives: Yes Advance Directives on File: Yes Advance Directives Date on File: 07/13/23 service: No Physical Exam ED Vital Signs: Vital Signs - 24 hr 11/26/24 22:34 11/26/24 23:17 11/27/24 00:37 Temperature 97.3 F 99.1 F Pulse Rate 83 91 Respiratory Rate 16 18 Blood Pressure 106/53 L 122/55 L Pulse Oximetry 94 93 Oxygen Delivery Method Room Air Room Air 11/27/24 03:31 Temperature 99.2 F Pulse Rate 92 Respiratory Rate 22 H Blood Pressure 107/52 L Pulse Oximetry 94 Oxygen Delivery Method Room Air BMI result Body Mass Index 22.5 Appearance: Alert.?Oriented to person, place and time. No acute distress.?Normal affect. Eyes: Pupils equal, round and reactive to light.? ENT: Pharynx normal.?? Neck: Normal inspection.? Neck supple.?? CVS: Heart sounds normal. Normal heart rate and rhythm.? Pulses normal.?? Respiratory: No respiratory distress.? Lung sounds clear to auscultation bilaterally?? Abdomen: Soft and non-tender. Normoactive bowel sounds. No pulsatile mass.?? Skin: Skin warm and dry.? Normal skin color.? Normal skin turgor.?? Extremities: No lower extremity edema.? No calf ttp? Neuro: Moves all extremities spontaneously. Sensation intact bilaterally. CN II- XII intact. No focal neuro deficits. Ambulates with normal steady gait. Medical Decision Making Medical Decision Making MDM Narrative: Patient is a 54-year-old male past medical history of alcohol use disorder, anemia, cirrhosis, variceal bleeding presents with acute alcohol intoxication, of note he was seen in the emergency department earlier today had CBC and CMP checked at the time, will obtain ethanol level bruising assessment of sobriety and safe disposition planning. Offers no physical complaints. No SI/HI. He will be placed in physician observation pending sobriety and re-evaluation. No SI/HI. Differential Diagnosis Differential Diagnoses: The differential diagnosis associated with the presentation includes (See narrative above and below for further detail) Admission/Observation Consideration of admission/observation: Escalation of care including admission/observation considered Patient is being observed in the Emergency Department for encephalopathy. Observation time was started at 21:18 on 11/26/2024.?The patient is currently stable and non-toxic appearing. Observation is being initiated in the Emergency Department to allow time to help differentiate if the patient?s encephalopathy and delirium is due to alcohol intoxication and polysubstance abuse versus stroke, transient ischemic attack, major depression, overdose of medication, arrhythmia, seizure, or closed head injury/concussion. The patient will receive frequent assessments from the provider as well as the nursing staff. The patient will be monitored for the need for diagnostic imaging such as a CT head, MRI brain, chest x-ray, and serial EKGs to evaluate for prolonged QTc intervals. The patient will also be monitored for the need of PRN agitation medications such as Haldol, Ativan, and Benadryl. Dr. Boyd Romero's End physician observation on 11/27/2024 at 06:49 hours: I assumed care of this patient from my colleague, nurse practitioner Vanessa Lopez at 02:00 hours. 54-year-old male past medical history of alcohol use disorder, anemia, cirrhosis, variceal bleeding presents emergency department via EMS for acute alcohol intoxication. Patient was ethanol level was 301. Observation care revealed the the patient does not meet medical necessity for hospitalization. Exam at time of disposition revealed the patient was awake, alert , oriented to person place, was not in any distress. ? Final disposition discussed with the patient who verbalized understanding and agreement. Patient started observation time on 11/26/2024 at 21:18 hours Patient completed observation care on 11/27/2024 at 06:49 hours Total time spent in observation care was 12 hours and 31 minutes. Lab Data MDM Lab Attestation statement: I reviewed the patient's lab results. Labs: Lab Results 11/26/24 Range/Units 21:54 Ethyl Alcohol 301 H* mg/dL Independent Historian Clinical information obtained from an independent historian. History obtained from or confirmed by: EMS External Record Review External record reviewed: Outpatient record Chronic Conditions Patient?s care impacted by: Other (See narrative above) Discharge Plan Discharge Clinical Impression: Alcoholic intoxication Patient Disposition: Home, Self-Care Additional Instructions: You need to get help with your alcohol use disorder Continue taking medications as prescribed by your providers Follow-up with your doctor in 2 days. Please return to the emergency department if your symptoms get worse or if you develop any symptoms that are concerning to you. Prescriptions: No Action midodrine 5 mg Tablet 5 mg PO TID Qty: 180 0RF furosemide 20 mg Tablet 20 mg PO DAILY Qty: 90 0RF Protocol: Hold for SBP< HOLD for SBP < : 90 prednisone 10 mg tablet See Taper PO DAILY Qty: 20 0RF Taper: Prednisone 40 mg daily for 3 Days and 0 Hour 30 mg daily for 3 Days and 0 Hour 20 mg daily for 3 Days and 0 Hour 10 mg daily for 3 Days and 0 Hour omeprazole 20 mg Capsule,Delayed Release(Dr/Ec) 20 mg PO BID@0630,1630 Qty: 60 0RF folic acid 1 mg Tablet 1 mg PO DAILY Qty: 90 0RF thiamine mononitrate (vit B1) 100 mg Tablet 100 mg PO DAILY Qty: 90 0RF magnesium oxide 400 mg (241.3 mg magnesium) Tablet 400 mg PO BIDPC Qty: 180 0RF Print Language: Nigerien
[2024-11-26 21:10] VITALS: BP 138/66; PULSE 84; O2SAT 96
[2024-11-26 21:58] VITALS: BMI 22.5
[2024-11-26 22:09] LABS: Ethanol 301 mg/dL
[2024-11-26 22:34] VITALS: BP 106/53; PULSE 83; RESP 16; O2SAT 94
[2024-11-26 23:17] VITALS: TEMP 36.3
[2024-11-27 00:37] VITALS: BP 122/55; PULSE 91; RESP 18; TEMP 37.3; O2SAT 93
[2024-11-27 03:31] VITALS: BP 107/52; PULSE 92; RESP 22; TEMP 37.3; O2SAT 94
[2024-11-27 07:04] VITALS: BP 112/62; PULSE 88; RESP 18; TEMP 37.3; O2SAT 94
== END 2024-11-27 07:05 | disposition home or self-care (01) ==
PROVIDERS: Nurse Practitioner Family; Emergency Provider Emergency Medicine Emergency Medical Services
DX: F10.120 Alcohol abuse with intoxication, uncomplicated (principal); Y90.8 Blood alcohol level of 240 mg/100 ml or more; Z79.899 Other long term (current) drug therapy
CPT/HCPCS: 36415; 80307; 99283

== ENCOUNTER 2024-11-27 14:01 | Emergency (ER) | payer MEDICAID, SELFPAY ==
--- NOTE | ~2024-11-27 | XR_ITS ---
EXAMINATION: XR FOOT, RIGHT CLINICAL INFORMATION: foot and ankle pain when walking COMPARISON: None available. TECHNIQUE: AP, lateral, and oblique views of the right foot. FINDINGS: Hallux valgus deformity first metatarsophalangeal joint. Osteopenia versus osteoporosis. No acute cortical disruption or gross malalignment. Vascular calcifications. No subcutaneous emphysema. XR/XR foot RT min 3V IMPRESSION: Hallux valgus extent deformity, first metatarsophalangeal joint. Osteopenia versus osteoporosis. Peripheral arterial disease. No acute fracture or dislocation. Electronically signed by: Eric Steele MD 11/27/2024 03:50 PM EST
--- NOTE | ~2024-11-27 | XR_ITS ---
EXAMINATION: XR ANKLE, LEFT CLINICAL INFORMATION: foot and ankle pain when walking COMPARISON: None available. TECHNIQUE: AP, lateral, and mortise views of the left ankle. FINDINGS: No acute cortical disruption or malalignment. Edema pattern in the lateral malleolus. No subcutaneous emphysema. Vascular calcifications. Osteopenia versus osteoporosis. XR/XR ankle LT min 3V IMPRESSION: No acute fracture or dislocation. Edema pattern, lateral malleolus. Peripheral arterial disease. Electronically signed by: Eric Steele MD 11/27/2024 03:53 PM EST RP
--- NOTE | ~2024-11-27 | XR_ITS ---
EXAMINATION: XR FOOT, LEFT CLINICAL INFORMATION: foot and ankle pain when walking COMPARISON: None available. TECHNIQUE: AP, lateral, and oblique views of the left foot. FINDINGS: Hallux valgus deformity first metatarsophalangeal joint. Degenerative changes in the tarsal bones. No acute cortical disruption or gross malalignment. Osteopenia versus osteoporosis. No subcutaneous emphysema. Vascular calcifications. XR/XR foot LT min 3V IMPRESSION: No acute fracture or dislocation. Hallux valgus deformity first metatarsophalangeal joint. Atherosclerosis disease, peripheral. Electronically signed by: Eric Steele MD 11/27/2024 03:55 PM BILL
--- NOTE | ~2024-11-27 | XR_ITS ---
EXAMINATION: XR ANKLE, RIGHT CLINICAL INFORMATION: foot and ankle pain when walking COMPARISON: None available. TECHNIQUE: AP, lateral, and mortise views of the right ankle. FINDINGS: Old traumatic deformity of the inferior aspect lateral malleolus. No acute cortical disruption or malalignment. Edema pattern in the soft tissues, bimalleolar more conspicuous on the lateral malleolus. No subcutaneous emphysema. Atherosclerosis disease. XR/XR ankle RT min 3V IMPRESSION: No acute fracture or dislocation. Peripheral arterial disease. Electronically signed by: Eric Steele MD 11/27/2024 03:52 PM EST RP
[2024-11-27 14:14] VITALS: BP 144/78; BP 178/93; PULSE 79; RESP 20; TEMP 36.9; O2SAT 95; BMI 19.4
--- NOTE | 2024-11-27 14:55 | ED_ITS ---
HPI - Alcohol General Chief Complaint: ETOH/Substance Use Stated Complaint: ETOH INTOX FROM SIDE WALK PER EMS Time Seen by Provider: 11/27/24 14:17 Source: patient and EMS Mode of arrival: EMS Limitations: no limitations History of Present Illness HPI narrative: 54-year-old male well known to the emergency department for alcohol intoxication seen here twice yesterday who presents to the emergency department again had ring found on the curb intoxicated patient states he lives behind the liquor store Recent HPI from 11/15 discharge after prolonged admission past medical history of alcohol abuse and dependence and alcoholic liver disease who presented to [facility] ED on 10/20/2024 when he was brought in by EMS for what appeared to be intoxication. In the ED, the patient was initially tolerant of oral fluids but did low blood pressures and hypoxia at 88%. He was treated with intravenous fluids and basic lab work was done. Patient is blood pressure did improve but however the patient's CIWA started to rise. He requires 3 L of supplemental oxygen and his chest x-ray is showing interstitial markings and patchy opacities. The patient has been treated with empiric antibiotics. He also is noted to have electrolyte abnormalities and his magnesium and potassium have been repleted as well. Given his persistent hypoxia as well as alcohol withdrawal, admission has been requested. The patient is seen and examined in the ED around 08:30. The patient currently reports feeling cold and tremulous. He thinks he is withdrawing. He reports a ongoing cough which is nonproductive. He denies any shortness of breath. He denies any fevers. He reports his last drink was prior to ED arrival. At this time his only request is to eat something. hospital course 54-year-old male with a past medical history of alcohol abuse and dependence and stigmata of chronic liver disease who was brought in by ambulance for what appeared to be intoxication. The patient has been found to have hypoxia requiring 3 L of supplemental oxygen as well as hypotension which has responded to intravenous fluids. He is exhibiting signs of withdrawal and given his hypoxia now will be admitted for further workup and treatment. Acute respiratory failure with hypoxia likely from aspiration PNA, completed IV Abx and had prolonged hypoxia and required oxygen for long time and was reassessed by pulmonary and put on steroid which seems to have made a difference and now off O2, likely post pneumonia pneumonitis. Will complete steroid suzie Acute alcohol withdrawal, completed phenobarbital and no withdsrawal symptoms at this time prerenal azotemia vs angelika: resolved. ALcoholic liver disease/cirrhosis with ascites hepatitis screen and hiv-nonreactive had paracentesis of 2.7 L removal on 10/23, repeat us on 11/11 small amount of ascietes Pancytpenia--d/t cirrhosis H/H trending down since admission no acute bleeding noted likely bone marrow suppression from etoh/chronic inflammation as well as acute illness iron 73 b12, folate HypOnatremia--d/t cirrhoss, resolved. Hypokalemia--resolved mild hypocalemia -calcium levels seems normal when corrected for hypoalbuminemia, resolved. Patient was consider for rehab when he was requiring oxygen but once he was off oxygen declined to go to rehab and woul like to be discharged and would figure out his living situation, he is alert, oriented and able to make an informed decision MD complaint: alcohol intoxication Related Data Previous Rx's ?Medication ?Instructions ?Recorded folic acid 1 mg tablet 1 mg PO DAILY #90 tabs 11/15/24 furosemide 20 mg tablet 20 mg PO DAILY #90 tabs 11/15/24 magnesium oxide 400 mg (241.3 mg 400 mg PO BIDPC #180 tabs 11/15/24 magnesium) tablet midodrine 5 mg tablet 5 mg PO TID #180 tabs 11/15/24 omeprazole 20 mg capsule,delayed 20 mg PO BID@0630,1630 #60 caps 11/15/24 release prednisone 10 mg tablet See Taper PO DAILY #20 tabs 11/15/24 thiamine mononitrate (vit B1) 100 100 mg PO DAILY #90 tabs 11/15/24 mg tablet Allergies Allergy/AdvReac Type Severity Reaction Status Date / Time No Known Allergies Allergy Verified 11/27/24 14:15 [No Known Allergies*] Review of Systems 2 Review of Systems: Review of systems: General: Patient denies any fever chills recent illness or falls Musculoskeletal: Denies back pain or body aches or other injuries HEENT: denies headache, runny nose, ear pain Respiratory: denies shortness of breath, cough Cardiovascular: no chest pain or palpitations : denies dysuria, frequency Abdomen: no nausea vomiting denies abdominal pain Extremities: no swelling, no pain Skin: no diaphoresis Yes all other systems are reviewed and are negative PMFSH Past Medical History Medical History Alcoholic liver disease Aspiration pneumonia Thrombocytopenia Malnutrition CHF (congestive heart failure) Anemia Hypomagnesemia Cirrhosis Thrombocytopenia Acute on chronic anemia CHF (congestive heart failure) Anemia Pneumonia Alcohol abuse Alcohol withdrawal syndrome Surgical History No history of previous surgery Social History Social History Household Members: None Household Members Other:: pt homeless Housing: Homeless Housing Other:: homeless Do you presently have visiting nurse or other home services: No Unable to assess alcohol history related to: Refusing to respond Alcohol intake: current Alcohol intake frequency: 3 or more drinks per day Alcohol type: beer and hard liquor Comment: 1 assist to bathroom Patient Tobacco Use Status: Former Tobacco user Tobacco use type: Cigarette Second Hand Smoke Exposure: No Advance Directives: Yes Advance Directives on File: Yes Advance Directives Date on File: 07/13/23 service: No Physical Exam ED Vital Signs: Vital Signs - 24 hr 11/27/24 14:14 Temperature 98.5 F Pulse Rate 79 Respiratory Rate 20 Blood Pressure 144/78 H Pulse Oximetry 95 Oxygen Delivery Method Room Air BMI result Body Mass Index 19.4 General: Well-appearing well-nourished in no signs of distress HEENT: Normocephalic atraumatic Neck: No signs of JVD, no masses no tenderness or lymphadenopathy Cardiovascular: Regular rate and rhythm Respiratory: Clear to auscultation bilaterally Abdomen: Soft nontender no masses Extremities: Normal pedal pulses no signs of edema Skin: Dry warm no rashes Back: No tenderness full ROM Course Course Course Narrative: patient found to have smaller to have LFTs as well as a minimally elevated ammonia level I will give the patient a dose of lactulose I do not think this patient needs any further evaluation Reevaluation(s) Reevaluation #1: Patient remaines intoxicated and looks well I will keep here for alcohol intoxication Medical Decision Making Medical Decision Making MDM Narrative: I will check some general labs he had x-rays and reassess Differential Diagnosis Differential Diagnoses: The differential diagnosis associated with the presentation includes alcohol intoxication liver failure foot pain Lab Data 11/27/24 15:05 11/27/24 15:05 Labs: Lab Results 11/27/24 11/27/24 Range/Units 15:05 15:08 WBC 5.6 (4.8-10.8) X10*3/uL RBC 2.74 L (4.60-5.80) X10*6/uL Hgb 9.2 L (14.0-18.0) g/dl Hct 27.9 L (42.0-52.0) % MCV 101.8 H (80.0-98.0) fL MCH 33.6 H (27.0-33.0) pg MCHC 33.0 (31.0-36.0) g/dl RDW 14.6 (11.0-16.0) % Plt Count 55 L (160-400) X10*3/uL MPV 12.2 (9.4-12.4) fL Immature Gran % (Auto) 0.4 (0.0-0.4) % Neut % (Auto) 89.7 H (45-73) % Lymph % (Auto) 5.7 L (20-40) % [place] % (Auto) 3.6 (2-11) % Eos % (Auto) 0.2 (0-4) % Baso % (Auto) 0.4 (0-2) % Lymph # (Auto) 0.3 L (1.2-4.9) X10*3/uL [place] # (Auto) 0.2 (0.1-1.2) X10*3/uL Eos # (Auto) 0.0 (0.0-0.4) X10*3/uL Baso # (Auto) 0.0 (0.0-0.2) X10*3/uL Abs Immat Gran (auto) 0.02 (0.00-0.03) X10*3/uL Absolute Neuts (auto) 5.1 (2.0-8.3) x10*3/uL Absolute Nucleated RBC 0.000 (0.0-0.012) X10*3/uL Nucleated RBC % (auto) 0.0 (0.0-0.2) /100WBC Sodium 141 (135-145) mmol/L Potassium 3.6 (3.3-5.1) mmol/L Chloride 107 (96-108) mmol/L Carbon Dioxide 21 L (22-29) mmol/L Anion Gap 17 (12-20) BUN 16 (9-16) mg/dL Creatinine 0.79 (0.5-1.4) mg/dL Estim Creat Clear Calc 81.3 Estimated GFR > 60 Random Glucose 145 H (60-115) mg/dL Calcium 9.4 D (8.4-10.2) mg/dL Total Bilirubin 1.4 H (0.0-1.0) mg/dL AST 60 H (5-37) U/L ALT 33 (0-40) U/L Alkaline Phosphatase 155 H (39-117) U/L Ammonia 70 H (13-55) umol/L Total Protein 9.3 H (6.5-8.0) g/dL Albumin 4.3 (3.5-5.0) g/dL Ethyl Alcohol 316 H* mg/dL Medications Administered Discontinued Medications Generic Name Dose Route Start Last Admin Trade Name Freq PRN Reason Stop Dose Admin Chlordiazepoxide HCl 100 mg 11/27/24 15:44 11/27/24 15:57 Chlordiazepoxide Hcl 25 Mg Capsule PO 11/27/24 15:45 Not Given ONCE ONE Lactulose 20 gm 11/27/24 15:43 11/27/24 16:00 Lactulose 20 Gm/30 Ml Solution PO 11/27/24 15:44 20 gm ONCE ONE Administration Discharge Plan Discharge Clinical Impression: Alcoholic intoxication Patient Disposition: Still a Patient Instructions: Abuse of Alcohol (DC), At-Risk Alcohol Use (ED) Additional Instructions: you were seen today for alcohol intoxication. Please call follow up with your doctor Prescriptions: No Action midodrine 5 mg Tablet 5 mg PO TID Qty: 180 0RF furosemide 20 mg Tablet 20 mg PO DAILY Qty: 90 0RF Protocol: Hold for SBP< HOLD for SBP < : 90 prednisone 10 mg tablet See Taper PO DAILY Qty: 20 0RF Taper: Prednisone 40 mg daily for 3 Days and 0 Hour 30 mg daily for 3 Days and 0 Hour 20 mg daily for 3 Days and 0 Hour 10 mg daily for 3 Days and 0 Hour omeprazole 20 mg Capsule,Delayed Release(Dr/Ec) 20 mg PO BID@0630,1630 Qty: 60 0RF folic acid 1 mg Tablet 1 mg PO DAILY Qty: 90 0RF thiamine mononitrate (vit B1) 100 mg Tablet 100 mg PO DAILY Qty: 90 0RF magnesium oxide 400 mg (241.3 mg magnesium) Tablet 400 mg PO BIDPC Qty: 180 0RF Print Language: Swedish
[2024-11-27 15:14] LABS: MANUAL DIFF FLAG NO
[2024-11-27 15:15] LABS: Basophils Percent Auto 0.4 % (0-2); Eosinophils Percent Auto 0.2 % (0-4); Hematocrit 27.9 % (42.0-52.0); Hemoglobin 9.2 g/dl (14.0-18.0); Imm Gran Abs Auto 0.02 X10*3/uL (0.00-0.03); Imm Gran Pct Auto 0.4 % (0.0-0.4); Lymphocytes Absolute Auto 0.3 X10*3/uL (1.2-4.9); Lymphocytes Percent Auto 5.7 % (20-40); Mean Corpuscular Hemoglobin 33.6 pg (27.0-33.0); Mean Corpuscular Volume 101.8 fL (80.0-98.0); Mean Platelet Volume 12.2 fL (9.4-12.4); Monocytes Absolute Auto 0.2 X10*3/uL (0.1-1.2); Monocytes Percent Auto 3.6 % (2-11); Neutrophils Absolute Auto 5.1 x10*3/uL (2.0-8.3); Neutrophils Percent Auto 89.7 % (45-73); Red Blood Count 2.74 X10*6/uL (4.60-5.80); Red Cell Distribution Width 14.6 % (11.0-16.0); White Blood Count 5.6 X10*3/uL (4.8-10.8)
[2024-11-27 15:16] LABS: Platelet Count 55 X10*3/uL (160-400)
[2024-11-27 15:25] LABS: Ammonia 70 umol/L (13-55)
[2024-11-27 15:38] LABS: Alanine Aminotransferase 33 U/L (0-40); Albumin Level 4.3 g/dL (3.5-5.0); Anion Gap 17 (12-20); Aspartate Amino Transferase 60 U/L (5-37); Bilirubin Total 1.4 mg/dL (0.0-1.0); Blood Urea Nitrogen 16 mg/dL (9-16); Calcium 9.4 mg/dL (8.4-10.2); Carbon Dioxide 21 mmol/L (22-29); Chloride 107 mmol/L (96-108); Creatinine Clr Calc Pharmacy 81.3; Estimated Glomerular Filt Rate > 60; Ethanol 316 mg/dL; Glucose Random 145 mg/dL (60-115); Potassium 3.6 mmol/L (3.3-5.1); Sodium 141 mmol/L (135-145); Total Protein 9.3 g/dL (6.5-8.0)
[2024-11-27 15:44] LABS: Alkaline Phosphatase 155 U/L (39-117)
[2024-11-27] MEDS: Lactulose 20 GM/30 ML SOLUTION PO (16:00)
[2024-11-27 20:04] VITALS: BP 133/66; PULSE 97; RESP 18; TEMP 37.1; O2SAT 90
[2024-11-28] MEDS: Tranexamic Acid 1,000 MG/10 ML VIAL 500 MG INTRANASAL (01:35)
--- NOTE | 2024-11-28 01:38 | PC.NURSE ---
Patient has recurring bloody nose, TXA administered into Right Nare by MADISON and packed
--- NOTE | 2024-11-28 01:58 | PC.NURSE ---
Nose continues to bleed with saturated packing. Provider aware
[2024-11-28] MEDS: Cocaine HCl 4 % 4 ML SOLUTION TOPICAL (02:22)
[2024-11-28 07:09] VITALS: RESP 20
--- NOTE | 2024-11-28 07:09 | PC.NURSE ---
Assumed care of patient at 0645, patient appears to be in no apparent distress this am, calm and cooperative, offering no complaints to this RN. Continue plan of care for MD follow up this am
--- NOTE | 2024-11-28 07:37 | PC.NURSE ---
Packing pulled from right nare, bleeding controlled at this time, no blood noted
--- NOTE | 2024-11-28 08:37 | PC.NURSE ---
Pt spending extensive amount of time in shower, this RN and FAVIOLA Che have both checked on him. Pt reports I am just enjoying the hot water, thank you!
[2024-11-28] MEDS: Ibuprofen 600 MG TABLET PO (08:48)
--- NOTE | 2024-11-28 08:53 | PC.NURSE ---
Pt reports not being interested in detox, message relayed to Ida Carty RN
--- NOTE | 2024-11-28 09:10 | MHC.RECOVRN ---
Received CARE Team consult for ATS. Spoke with pts RN, pt not interested in ATS. Pt cleared by recovery for discharge. Discussed with RN and Namrata Lindo APRN.
[2024-11-28 10:11] VITALS: BP 109/88; PULSE 84; RESP 16; TEMP 36.1; O2SAT 99
== END 2024-11-28 10:12 | disposition home or self-care (01) ==
PROVIDERS: Emergency Provider Student in an Organized Health Care Education/Training Program
DX: F10.129 Alcohol abuse with intoxication, unspecified (principal); Y90.8 Blood alcohol level of 240 mg/100 ml or more; Z51.81 Encounter for therapeutic drug level monitoring; M79.672 Pain in left foot; M79.671 Pain in right foot; M25.572 Pain in left ankle and joints of left foot; M25.571 Pain in right ankle and joints of right foot; Z79.899 Other long term (current) drug therapy; Z71.41 Alcohol abuse counseling and surveillance of alcoholic
CPT/HCPCS: 36415; 73610; 73630; 80053; 80307; 82140; 85025; 99284; C9143

== ENCOUNTER 2024-11-28 15:57 | Inpatient (IN) | payer MEDICAID, SELFPAY ==
--- NOTE | ~2024-11-28 | CT_ITS ---
CLINICAL HISTORY: AMS CT head without contrast Comparison: CT/SR - CT HEAD/BRAIN WO IV CON - 11/20/24 15:13 EST Findings: Motion and streak artifact limit evaluation. Scattered subcortical and periventricular hypoattenuation, likely in keeping with chronic small vessel ischemic disease. Parenchymal volume loss with compensatory prominence of the ventricles and CSF spaces. No acute territorial infarction, intracranial hemorrhage, midline shift or hydrocephalus. No significant atrophy-like change or white matter disease. There is no sinus or mastoid fluid. The orbits are within normal limits. There is no acute fracture. IMPRESSION: Motion degraded exam. Grossly no acute intracranial abnormality. This document has been electronically signed by: Randal Mendoza MD on 11/30/2024 02:14:27
--- NOTE | ~2024-11-28 | CT_ITS ---
CLINICAL HISTORY: infection, aspiraion CT chest with contrast Comparison: None Findings: The heart is enlarged with [id number] coronary calcium. No pericardial effusion. No adenopathy. Esophagus is decompressed. Large gastroesophageal varices. Unremarkable thyroid. Small amount of gynecomastia. No axillary adenopathy. Exam is markedly degraded by respiratory motion. The right lung is clear aside from minimal hypoventilatory changes in the lung base. There is patchy consolidation within the left lung base. No large effusion or pneumothorax. No pulmonary mass. The upper abdomen is discussed on the concurrent CT abdomen pelvis report. Compression fracture of T9 with complete anterior height loss. No significant retropulsion. IMPRESSION: 1. Patchy consolidation in the left lung base which can be seen in the setting of aspiration. 2. Markedly motion degraded exam. 3. Age indeterminate compression fracture at T9 with complete anterior height loss. This document has been electronically signed by: Mary Rogers MD on 11/29/2024 05:14:27
--- NOTE | ~2024-11-28 | CT_ITS ---
CLINICAL HISTORY: pain, fever CT abdomen and pelvis with contrast Comparison: None Findings: Evaluation of the lung bases is limited by significant respiratory motion. Please see separately reported CT chest with contrast report. The liver is enlarged demonstrating contour nodularity and lobar redistribution. No discrete lesion. The spleen is also enlarged. Cholelithiasis without biliary ductal dilation. Pancreas, adrenal glands and kidneys demonstrate no acute findings. Moderately distended stomach. Small bowel and colon demonstrate no acute findings. Exam is markedly motion degraded limiting evaluation of the bowel wall. Pelvic contents unremarkable. Appendix not definitively identified. Small volume ascites. Nonaneurysmal aorta. Portal vein is patent. Large portosystemic collaterals in the left upper quadrant including large paraesophageal varices. No adenopathy. No acute fracture. IMPRESSION: Markedly motion degraded exam. Morphologic changes of chronic liver disease with hepatosplenomegaly, small volume ascites enlarged portosystemic collaterals including large paraesophageal varices. Cholelithiasis without acute cholecystitis. This document has been electronically signed by: Mary Rogers MD on 11/29/2024 05:14:13
[2024-11-28 16:10] VITALS: BP 143/54; BP 147/75; PULSE 90; PULSE 94; RESP 15; TEMP 36.9; O2SAT 97; O2SAT 98; BMI 20.4
[2024-11-28] MEDS: Cocaine HCl 4 % 4 ML SOLUTION TOPICAL (18:19)
--- NOTE | 2024-11-28 18:41 | ED.EPISTAXIS ---
History of Present Illness General Chief Complaint: Epistaxis Stated Complaint: nose bleed Time Seen by Provider: 11/28/24 18:01 Related Data Previous Rx's ?Medication ?Instructions ?Recorded folic acid 1 mg tablet 1 mg PO DAILY #90 tabs 11/15/24 furosemide 20 mg tablet 20 mg PO DAILY #90 tabs 11/15/24 magnesium oxide 400 mg (241.3 mg 400 mg PO BIDPC #180 tabs 11/15/24 magnesium) tablet midodrine 5 mg tablet 5 mg PO TID #180 tabs 11/15/24 omeprazole 20 mg capsule,delayed 20 mg PO BID@0630,1630 #60 caps 11/15/24 release prednisone 10 mg tablet See Taper PO DAILY #20 tabs 11/15/24 thiamine mononitrate (vit B1) 100 100 mg PO DAILY #90 tabs 11/15/24 mg tablet Allergies Allergy/AdvReac Type Severity Reaction Status Date / Time No Known Allergies Allergy Verified 11/28/24 16:16 [No Known Allergies*] [facility] Past Medical History Medical History Alcoholic liver disease Aspiration pneumonia Thrombocytopenia Malnutrition CHF (congestive heart failure) Anemia Hypomagnesemia Cirrhosis Thrombocytopenia Acute on chronic anemia CHF (congestive heart failure) Anemia Pneumonia Alcohol abuse Alcohol withdrawal syndrome Surgical History No history of previous surgery Social History Social History Household Members: None Household Members Other:: pt homeless Housing: Homeless Housing Other:: homeless Do you presently have visiting nurse or other home services: No Unable to assess alcohol history related to: Refusing to respond Alcohol intake: current Alcohol intake frequency: 3 or more drinks per day Alcohol type: hard liquor Comment: 1 assist to bathroom Patient Tobacco Use Status: Former Tobacco user Tobacco use type: Cigarette Smoked in Last 30 Days: No Second Hand Smoke Exposure: No Use of substances other than those prescribed or required for medical reasons: No Advance Directives: Yes Advance Directives on File: Yes Advance Directives Date on File: 07/13/23 service: No Physical Exam Vital Signs: Vital Signs: Last Vital Signs Temp 98.5 F 11/28/24 16:10 Pulse 94 11/28/24 16:10 Resp 15 11/28/24 16:10 BP 143/54 H 11/28/24 16:10 Pulse Ox 97 11/28/24 16:10 O2 Del Method Room Air 11/28/24 16:10 BMI result Body Mass Index 20.4 Medications Administered Discontinued Medications Generic Name Dose Route Start Last Admin Trade Name David PRN Reason Stop Dose Admin Cocaine HCl 4 ml 11/28/24 18:02 11/28/24 18:19 Cocaine Hcl 4 % 4 Ml Solution TOPICAL 11/28/24 18:03 4 ml ONCE ONE Administration Protocol Discharge Plan Discharge Prescriptions: No Action midodrine 5 mg Tablet 5 mg PO TID Qty: 180 0RF furosemide 20 mg Tablet 20 mg PO DAILY Qty: 90 0RF Protocol: Hold for SBP< HOLD for SBP < : 90 prednisone 10 mg tablet See Taper PO DAILY Qty: 20 0RF Taper: Prednisone 40 mg daily for 3 Days and 0 Hour 30 mg daily for 3 Days and 0 Hour 20 mg daily for 3 Days and 0 Hour 10 mg daily for 3 Days and 0 Hour omeprazole 20 mg Capsule,Delayed Release(Dr/Ec) 20 mg PO BID@0630,1630 Qty: 60 0RF folic acid 1 mg Tablet 1 mg PO DAILY Qty: 90 0RF thiamine mononitrate (vit B1) 100 mg Tablet 100 mg PO DAILY Qty: 90 0RF magnesium oxide 400 mg (241.3 mg magnesium) Tablet 400 mg PO BIDPC Qty: 180 0RF Print Language: Ethiopian
--- NOTE | 2024-11-28 18:48 | ED_ITS ---
HPI - General Adult General Chief complaint: Epistaxis Stated complaint: nose bleed Time Seen by Provider: 11/28/24 18:01 Source: patient Limitations: no limitations History of Present Illness ED Provider: Trudy Brannon PA-C HPI narrative: 54-year-old male with a history of housing and security, alcohol abuse, varices, chronic pancytopenia, presents with epistaxis. Patient was assessed by our behavioral health team yesterday and discharged today. Overnight he had a right-sided nosebleed. Today he presents back with a left-sided nosebleed. Related Data Previous Rx's ?Medication ?Instructions ?Recorded folic acid 1 mg tablet 1 mg PO DAILY #90 tabs 11/15/24 furosemide 20 mg tablet 20 mg PO DAILY #90 tabs 11/15/24 magnesium oxide 400 mg (241.3 mg 400 mg PO BIDPC #180 tabs 11/15/24 magnesium) tablet midodrine 5 mg tablet 5 mg PO TID #180 tabs 11/15/24 omeprazole 20 mg capsule,delayed 20 mg PO BID@0630,1630 #60 caps 11/15/24 release prednisone 10 mg tablet See Taper PO DAILY #20 tabs 11/15/24 thiamine mononitrate (vit B1) 100 100 mg PO DAILY #90 tabs 11/15/24 mg tablet Allergies Allergy/AdvReac Type Severity Reaction Status Date / Time No Known Allergies Allergy Verified 11/28/24 16:16 [No Known Allergies*] Review of Systems 2 Review of Systems: Yes all other systems are reviewed and are negative Constitutional: Constitutional: Denies fatigue, Denies fever(s) and Denies headache(s) ENT: Denies dizziness, Denies headache(s) and Reports epistaxis Cardiovascular: Cardiovascular: Denies chest pain and Denies dyspnea Respiratory: Respiratory: Denies dyspnea Neurologic: Denies dizziness and Denies headache(s) Endocrine: Endocrine: Denies fatigue [facility] Past Medical History Attestation statement: The following information was validated with the patient. Medical History Alcoholic liver disease Aspiration pneumonia Thrombocytopenia Malnutrition CHF (congestive heart failure) Anemia Hypomagnesemia Cirrhosis Thrombocytopenia Acute on chronic anemia CHF (congestive heart failure) Anemia Pneumonia Alcohol abuse Alcohol withdrawal syndrome Surgical History No history of previous surgery Social History Social History Household Members: None Household Members Other:: pt homeless Housing: Homeless Housing Other:: homeless Do you presently have visiting nurse or other home services: No Unable to assess alcohol history related to: Refusing to respond Alcohol intake: current Alcohol intake frequency: 3 or more drinks per day Alcohol type: hard liquor Comment: 1 assist to bathroom Patient Tobacco Use Status: Former Tobacco user Tobacco use type: Cigarette Smoked in Last 30 Days: No Second Hand Smoke Exposure: No Use of substances other than those prescribed or required for medical reasons: No Advance Directives: Yes Advance Directives on File: Yes Advance Directives Date on File: 07/13/23 service: No Physical Exam ED Vital Signs: Vital Signs - 24 hr 11/28/24 16:10 11/28/24 21:11 11/29/24 03:14 Temperature 98.5 F 99.2 F 100.9 F H Pulse Rate 94 90 107 H Respiratory Rate 15 18 16 Blood Pressure 143/54 H 113/76 116/47 L Pulse Oximetry 97 95 94 Oxygen Delivery Method Room Air Room Air Room Air BMI result Body Mass Index 20.4 Const Other: Alert, appears older than stated age Orientation/consciousness: patient oriented x3 HENMT Other: No active bleeding from left naris, no clot dislodged with evacuate of the nose Resp Effort & Inspection: normal respiratory effort Cardio Other: Normal peripheral perfusion Skin Other: Warm dry no rash Neuro General: patient oriented x3, gait normal, no focal motor deficits and CN's II- XI intact bilaterally Psych Other: Cooperative Course Reevaluation(s) Reevaluation #1: Sepsis identified, the patient has spiked a fever he is actively vomiting in the hallway. Some of the screening labs were already obtained, we will be adding a blood cultures, lactic acid, viral panel imaging of chest and abdomen. We will be starting empiric ceftriaxone and giving weight based IV fluid. Giving IV Tylenol. Also placing a CIWA protocol and starting the phenobarb protocol. The patient will most likely withdrawal during his hospital admission. Time: 03:39 Medications Administered Generic Name Dose Route Start Last Admin Trade Name Freq PRN Reason Stop Dose Admin Magnesium Sulfate 2 gm in 50 mls @ 25 mls/hr 11/29/24 03:03 11/29/24 03:51 Magnesium Sulfate/H2o IV 11/29/24 05:02 25 mls/hr ONCE ONE Administration Sodium Chloride 1,000 mls @ 999 mls/hr 11/29/24 03:30 11/29/24 03:51 Ns IV 11/29/24 04:30 999 mls/hr .Q1H1M JOSE MANUEL Administration Discontinued Medications Generic Name Dose Route Start Last Admin Trade Name David PRN Reason Stop Dose Admin Acetaminophen 975 mg 11/28/24 21:55 11/28/24 22:01 Acetaminophen 325 Mg Tablet PO 11/28/24 21:56 975 mg ONCE ONE Administration Cocaine HCl 4 ml 11/28/24 18:02 11/28/24 18:19 Cocaine Hcl 4 % 4 Ml Solution TOPICAL 11/28/24 18:03 4 ml ONCE ONE Administration Protocol Cocaine HCl 4 ml 11/29/24 02:46 11/29/24 02:56 Cocaine Hcl 4 % 4 Ml Solution TOPICAL 11/29/24 02:47 4 ml ONCE ONE Administration Protocol Sodium Chloride 1,000 mls @ 999 mls/hr 11/29/24 02:30 11/29/24 03:47 Ns IV 11/29/24 03:30 Infused .Q1H1M JOSE MANUEL Infusion Acetaminophen 1,000 mg in 100 mls @ 400 mls/hr 11/29/24 03:08 11/29/24 03:46 Ofirmev IV 11/29/24 03:22 400 mls/hr ONCE ONE Administration Lorazepam 1 mg 11/29/24 02:28 11/29/24 02:43 Lorazepam 2 Mg/Ml Vial IVPUSH 11/29/24 02:29 1 mg ONCE ONE Administration Procedures Epistaxis Control Time Out Performed: No Nostril: Yes left Nose prepped with: Yes cocaine 4% Direct inspection: Yes unable to visualize (No active bleeding) Clots removed by: Yes blowing nose (No clot dislodged with blowing of the nose) Epistaxis treatment: Yes other (Cocaine soaked gauze) Results of treatment: Yes bleeding controlled Complications: Yes none Medical Decision Making Medical Decision Making MDM Narrative: 54-year-old male with a history of housing and security, alcohol abuse, varices, chronic pancytopenia, presents with epistaxis. Patient was assessed by our behavioral health team yesterday and discharged today. Overnight he had a right-sided nosebleed. Today he presents back with a left-sided nosebleed. Problem: Housing and security, alcohol abuse History: Per patient I have considered the following differential diagnoses: Epistaxis, nasal bone trauma, polyp, tumor Plan: Patient was here with bleeding overnight which was readily controlled with cocaine packing. We will repeat. I have a feeling there was an element of secondary gain, the patient was just released today, he is homeless, in his nose is truly not bleeding. I have a feeling he manually manipulate in the nostril. No indication for labs or imaging as there has not been a trauma. Lab Data 11/29/24 02:29 11/29/24 02:29 Labs: Lab Results 11/29/24 11/29/24 Range/Units 02:29 03:39 WBC 5.5 (4.8-10.8) X10*3/uL RBC 2.26 L (4.60-5.80) X10*6/uL Hgb 7.5 L (14.0-18.0) g/dl Hct 22.2 L D (42.0-52.0) % MCV 98.2 H (80.0-98.0) fL MCH 33.2 H (27.0-33.0) pg MCHC 33.8 (31.0-36.0) g/dl RDW 14.4 (11.0-16.0) % Plt Count 33 L D (160-400) X10*3/uL MPV 11.9 (9.4-12.4) fL Immature Gran % (Auto) 0.4 (0.0-0.4) % Neut % (Auto) 86.7 H (45-73) % Lymph % (Auto) 5.9 L (20-40) % [place] % (Auto) 4.8 (2-11) % Eos % (Auto) 2.0 (0-4) % Baso % (Auto) 0.2 (0-2) % Lymph # (Auto) 0.3 L (1.2-4.9) X10*3/uL [place] # (Auto) 0.3 (0.1-1.2) X10*3/uL Eos # (Auto) 0.1 (0.0-0.4) X10*3/uL Baso # (Auto) 0.0 (0.0-0.2) X10*3/uL Abs Immat Gran (auto) 0.02 (0.00-0.03) X10*3/uL Absolute Neuts (auto) 4.8 (2.0-8.3) x10*3/uL Absolute Nucleated RBC 0.000 (0.0-0.012) X10*3/uL Nucleated RBC % (auto) 0.0 (0.0-0.2) /100WBC Sodium 138 (135-145) mmol/L Potassium 3.7 (3.3-5.1) mmol/L Chloride 105 (96-108) mmol/L Carbon Dioxide 23 (22-29) mmol/L Anion Gap 14 (12-20) BUN 29 H (9-16) mg/dL Creatinine 0.73 (0.5-1.4) mg/dL Estim Creat Clear Calc 92.8 Estimated GFR > 60 Random Glucose 116 H (60-115) mg/dL Calcium 8.7 D (8.4-10.2) mg/dL Magnesium 1.4 L* (1.6-2.6) mg/dL Total Bilirubin 1.8 H (0.0-1.0) mg/dL AST 47 H (5-37) U/L ALT 19 (0-40) U/L Total Protein 7.2 (6.5-8.0) g/dL Albumin 3.3 L (3.5-5.0) g/dL Lipase 45 (8-78) U/L Ethyl Alcohol < 10 mg/dL Influenza Type A (PCR) NEGATIVE (Negative) Influenza Type B (PCR) NEGATIVE (Negative) RSV RNA Qual (PCR) NEGATIVE (Negative) SARS-CoV-2 RNA (RT-PCR) NEGATIVE (Negative) Crossmatch (AHG) See Detail Attestation Attending Attestation: I was personally present and available for consultation in the ED. I have reviewed everything on the chart that is available and agree with the documentation provided by the DEB including discussion about the assessment, treatment plan and discussion. Based on medical record the care appears appropriate. Aristides De La Cruz MD [facility] Emergency Medicine Discharge Plan Discharge Clinical Impression: Epistaxis, Acute on chronic anemia, Sepsis, Thrombocytopenia, Alcohol abuse Patient Disposition: Admitted As Inpatient Transfer Details: [facility] transfer for critical trauma Prescriptions: No Action midodrine 5 mg Tablet 5 mg PO TID Qty: 180 0RF furosemide 20 mg Tablet 20 mg PO DAILY Qty: 90 0RF Protocol: Hold for SBP< HOLD for SBP < : 90 prednisone 10 mg tablet See Taper PO DAILY Qty: 20 0RF Taper: Prednisone 40 mg daily for 3 Days and 0 Hour 30 mg daily for 3 Days and 0 Hour 20 mg daily for 3 Days and 0 Hour 10 mg daily for 3 Days and 0 Hour omeprazole 20 mg Capsule,Delayed Release(Dr/Ec) 20 mg PO BID@0630,1630 Qty: 60 0RF folic acid 1 mg Tablet 1 mg PO DAILY Qty: 90 0RF thiamine mononitrate (vit B1) 100 mg Tablet 100 mg PO DAILY Qty: 90 0RF magnesium oxide 400 mg (241.3 mg magnesium) Tablet 400 mg PO BIDPC Qty: 180 0RF Print Language: Mozambican
[2024-11-28 21:11] VITALS: BP 113/76; PULSE 90; RESP 18; TEMP 37.3; O2SAT 95
[2024-11-28] MEDS: Acetaminophen 325 MG TABLET 975 MG PO (22:01)
[2024-11-29] VITALS (28 sets, daily range): BP systolic 93–128; BP diastolic 6–80; PULSE 83–120; RESP 12–34; TEMP 36.6–39; O2SAT 89–99
[2024-11-29 02:35] LABS: MANUAL DIFF FLAG NO
[2024-11-29 02:37] LABS: Basophils Percent Auto 0.2 % (0-2); Eosinophils Absolute Auto 0.1 X10*3/uL (0.0-0.4); Hematocrit 22.2 % (42.0-52.0); Hemoglobin 7.5 g/dl (14.0-18.0); Imm Gran Abs Auto 0.02 X10*3/uL (0.00-0.03); Imm Gran Pct Auto 0.4 % (0.0-0.4); Lymphocytes Absolute Auto 0.3 X10*3/uL (1.2-4.9); Lymphocytes Percent Auto 5.9 % (20-40); Mean Corpuscular HGB Conc 33.8 g/dl (31.0-36.0); Mean Corpuscular Hemoglobin 33.2 pg (27.0-33.0); Mean Corpuscular Volume 98.2 fL (80.0-98.0); Mean Platelet Volume 11.9 fL (9.4-12.4); Monocytes Absolute Auto 0.3 X10*3/uL (0.1-1.2); Monocytes Percent Auto 4.8 % (2-11); Neutrophils Absolute Auto 4.8 x10*3/uL (2.0-8.3); Neutrophils Percent Auto 86.7 % (45-73); Red Blood Count 2.26 X10*6/uL (4.60-5.80); Red Cell Distribution Width 14.4 % (11.0-16.0); White Blood Count 5.5 X10*3/uL (4.8-10.8)
[2024-11-29 02:43] LABS: Platelet Count 33 X10*3/uL (160-400)
[2024-11-29] MEDS: LORazepam 2 MG/ML VIAL 1 MG IVPUSH ×2 (02:43→06:15)
[2024-11-29] MEDS: 0.9 % Sodium Chloride 1,000 ML 999 ML IV ×2 (02:43→03:51)
[2024-11-29] MEDS: Cocaine HCl 4 % 4 ML SOLUTION TOPICAL (02:56)
[2024-11-29 03:02] LABS: Alanine Aminotransferase 19 U/L (0-40); Albumin Level 3.3 g/dL (3.5-5.0); Anion Gap 14 (12-20); Aspartate Amino Transferase 47 U/L (5-37); Bilirubin Total 1.8 mg/dL (0.0-1.0); Blood Urea Nitrogen 29 mg/dL (9-16); Calcium 8.7 mg/dL (8.4-10.2); Carbon Dioxide 23 mmol/L (22-29); Chloride 105 mmol/L (96-108); Creatinine Clr Calc Pharmacy 92.8; Estimated Glomerular Filt Rate > 60; Ethanol < 10 mg/dL; Glucose Random 116 mg/dL (60-115); Lipase 45 U/L (8-78); Potassium 3.7 mmol/L (3.3-5.1); Sodium 138 mmol/L (135-145); Total Protein 7.2 g/dL (6.5-8.0)
[2024-11-29 03:03] LABS: Magnesium 1.4 mg/dL (1.6-2.6)
[2024-11-29 03:13] LABS: Influenza A PCR NEGATIVE (Negative); Influenza B PCR NEGATIVE (Negative); Resp Syncy Virus RNA Qual PCR NEGATIVE (Negative); SARS COV2 PCR INHOUSE NEGATIVE (Negative)
[2024-11-29] MEDS: Acetaminophen 1,000 MG/100 ML PIGGYBACK 400 MG IV ×2 (03:46→10:26)
[2024-11-29] MEDS: Magnesium Sulfate/H2O 2 GM/50 ML PIGGYBACK IV (03:51)
[2024-11-29] MEDS: PHENobarbitaL sodium 130 MG/ML VIAL 230 MG IM (03:58)
[2024-11-29 04:03] LABS: Lactic Acid 1.1 mmol/L (0.5-2.0)
[2024-11-29 04:20] LABS: Alkaline Phosphatase 180 U/L (39-117)
--- NOTE | 2024-11-29 04:20 | PC.NURSE ---
ceftriaxone not available in ED
[2024-11-29] MEDS: cefTRIAXone sodium 2 GM VIAL IVPUSH ×2 (04:32→21:21)
[2024-11-29] MEDS: iohexoL 350 MG/ML 100 ML INFUS..BTL 85 ML IV (04:35)
--- NOTE | 2024-11-29 05:38 | PM.IMHP ---
History of Present Illness Date of Service: 11/29/24 Chief Complaint: Nosebleed and vomiting This is a 54-year-old male with pertinent history of alcohol use disorder with alcoholic cirrhosis, gastroesophageal reflux disease who presents to the emergency department for management of nosebleed and vomiting. Patient was assessed by behavioral health team and discharged on the day of presentation. Patient presented to the ER for left-sided nosebleed. Also had multiple episodes of vomiting while in the ER. He was found to be febrile with temperature of 100.9 degrees and tachycardic. He denies any symptoms at the time of evaluation. His last drink was on the day of presentation. Does have a history of alcohol withdrawals. In the emergency department, patient was resuscitated with IV crystalloids and given empiric IV antibiotics. Imaging with left-sided pneumonia concerning for aspiration. Review of Systems Constitutional: Constitutional: Reports fatigue and Reports malaise Cardiovascular: Cardiovascular: Reports no additional cardiovascular complaints Respiratory: Respiratory: Reports cough Gastrointestinal: Gastrointestinal: Reports vomiting Genitourinary: Genitourinary: Reports no additional male genitourinary complaints Endocrine: Endocrine: Reports fatigue PMFSH Medical History Alcoholic liver disease Aspiration pneumonia Thrombocytopenia Malnutrition CHF (congestive heart failure) Anemia Hypomagnesemia Cirrhosis Thrombocytopenia Acute on chronic anemia CHF (congestive heart failure) Anemia Pneumonia Alcohol abuse Alcohol withdrawal syndrome Surgical History No history of previous surgery Social History Household Members: None Household Members Other:: pt homeless Housing: Homeless Housing Other:: homeless Do you presently have visiting nurse or other home services: No Unable to assess alcohol history related to: Refusing to respond Alcohol intake: current Alcohol intake frequency: 3 or more drinks per day Alcohol type: hard liquor Comment: 1 assist to bathroom Patient Tobacco Use Status: Former Tobacco user Tobacco use type: Cigarette Smoked in Last 30 Days: No Second Hand Smoke Exposure: No Use of substances other than those prescribed or required for medical reasons: No Advance Directives: Yes Advance Directives on File: Yes Advance Directives Date on File: 07/13/23 service: No Meds Allergies Allergy/AdvReac Type Severity Reaction Status Date / Time No Known Allergies Allergy Verified 11/28/24 16:16 [No Known Allergies*] Active Medications: Current Medications Pharmacy Consult (Consult Rx Etoh Phenob Im/Po) 1 each MISCELLANE ONCE PRN; Protocol PRN Reason: Consult order Phenobarbital 30 mg/ (Phenobarbital 15 mg) 45 mg PO BID [facility] Stop: 11/30/24 21:01 Phenobarbital (Phenobarbital 15 Mg Tablet) 15 mg PO BID@0700,1900 [facility] Stop: 12/03/24 07:01 Phenobarbital (Phenobarbital 15 Mg Tablet) 15 mg PO DAILY@1900 [facility] Stop: 12/04/24 19:01 Phenobarbital Sodium (Phenobarbital Sodium 130 Mg/Ml Vial) 172 mg IM Q3H [facility] Stop: 11/29/24 10:01 Physical Exam Vital Signs and Narrative: Vital Signs: Last Vital Signs Temp 98.8 F 11/29/24 05:34 Pulse 101 H 11/29/24 05:34 Resp 25 H 11/29/24 05:34 BP 119/63 11/29/24 05:34 Pulse Ox 92 11/29/24 05:34 O2 Del Method Room Air 11/29/24 05:34 BMI result Body Mass Index 20.4 Middle-aged male lying in bed in no distress Neck supple, no JVD, left nose with dried blood Regular rate and rhythm, S1-S2 heard Left-sided crackles without wheezing Abdomen soft nontender, no guarding, no rigidity Patient is drowsy but awakens to verbal stimulus and answers questions, oriented to self and place ; no focal motor deficit Psych: Normal mood No pedal edema Results Labs 11/29/24 02:29 11/29/24 02:29 Labs: Laboratory Results - last 24 hr 11/29/24 11/29/24 02:29 03:39 MCV 98.2 H MCH 33.2 H MCHC 33.8 RDW 14.4 Plt Count 33 L D MPV 11.9 Immature Gran % (Auto) 0.4 Neut % (Auto) 86.7 H Lymph % (Auto) 5.9 L [place] % (Auto) 4.8 Eos % (Auto) 2.0 Baso % (Auto) 0.2 Lymph # (Auto) 0.3 L [place] # (Auto) 0.3 Eos # (Auto) 0.1 Baso # (Auto) 0.0 Abs Immat Gran (auto) 0.02 Absolute Neuts (auto) 4.8 Absolute Nucleated RBC 0.000 Nucleated RBC % (auto) 0.0 Anion Gap 14 Estim Creat Clear Calc 92.8 Estimated GFR > 60 Random Glucose 116 H Lactic Acid 1.1 Calcium 8.7 D Magnesium 1.4 L* Total Bilirubin 1.8 H AST 47 H ALT 19 Alkaline Phosphatase 180 H Total Protein 7.2 Albumin 3.3 L Lipase 45 Ethyl Alcohol < 10 Influenza Type A (PCR) NEGATIVE Influenza Type B (PCR) NEGATIVE RSV RNA Qual (PCR) NEGATIVE SARS-CoV-2 RNA (RT-PCR) NEGATIVE Blood Type B Positive Antibody Screen NEGATIVE Crossmatch (AHG) See Detail Assessment and Plan (1) Sepsis: Status: Acute (2) Aspiration pneumonia: Status: Acute (3) Alcohol abuse: Status: Acute Plan This is a 54-year-old male with pertinent history of alcohol use disorder with alcoholic cirrhosis, gastroesophageal reflux disease who presents to the emergency department for management of nosebleed and vomiting. #. Sepsis due to aspiration pneumonia: Will admit patient with IV Unasyn. Keep NPO and speech consult. Resuscitated with IV crystalloids. Lactic acid and blood culture obtained #. Nausea/vomiting due to alcoholic gastritis: Initiating IV Protonix #. Hypomagnesemia due to alcoholism: Repleted #. Epistaxis: Controlled in the ER with cocaine hcl #. Alcohol use disorder: Phenobarb protocol initiated in the ER. Monitor CIWA. Initiating IV thiamine and folic acid. Addiction Team #. Pancytopenia due to splenomegaly in the setting of cirrhosis and alcoholism: 1 unit platelet in 1 unit PRBC being transfused in the ER due to epistaxis. #. Alcoholic cirrhosis: On Lasix. Obtaining ammonia Med rec pending DVT prophylaxis: Mechanical Full code Admit as inpatient and will require two night minimum hospital stay for IV antibiotics, management of alcohol withdrawal (as above), which is not possible in a lesser acute setting. Quality Stroke Does the patient have a stroke diagnosis?: No VTE Prior VTE?: No VTE Risk Level:: Medical - moderate - high VTE Device Contraindication: N/A - Device Ordered VTE Drug Contraindication: Treatment Not Indicated
--- NOTE | 2024-11-29 06:55 | PC.NURSE ---
blood bank stating okay for pt to receive both RBCs and Platelets at the same time in different IVs, as long as it was after the initial 15 of RBC
[2024-11-29] MEDS: PHENobarbitaL sodium 130 MG/ML VIAL 172 MG IM ×2 (06:57→10:22)
--- NOTE | 2024-11-29 06:57 | PM.EVENT ---
Event Note Date of Service: 11/29/24 Event Note: Nurse reported coffee-ground emesis. Will switch antibiotics to ceftriaxone and Flagyl (to cover for SBP and aspiration pneumonia). Ordering octreotide, Protonix and GI consult. Repeat CBC. Time Spent With Patient Time: Total time managing care of this patient today ____ minutes.
[2024-11-29] MEDS: Octreotide Acetate 100 MCG/ML AMPUL 50 MCG IVPUSH (07:20)
--- NOTE | 2024-11-29 07:22 | HO.PM.IMPN ---
Subjective Subjective Date of Service: 11/29/24 Interval History: seen and examined this morning follow up for nose bleed, etoh, gi bleeding pt lethargic unable to provide history, unable to obtain ROS Physical Exam Vital Signs: Vital Signs: Last Vital Signs Temp 100.9 F H 11/29/24 06:40 Pulse 105 H 11/29/24 06:43 Resp 34 H 11/29/24 06:40 BP 118/55 L 11/29/24 06:43 Pulse Ox 94 11/29/24 06:40 O2 Del Method Nasal Cannula 11/29/24 06:40 O2 Flow Rate 2 11/29/24 06:40 BMI result Body Mass Index 20.4 Const: Other: lethargic, ill appearing; does not wake to verbal stimuli General: lethargic Orientation/consciousness: lethargic Resp: Effort & Inspection: no respiratory distress and no use of accessory muscles Cardio: Rate: tachycardic Neuro: Other: unable to assess Extrem: General: Yes no pedal edema Objective Data Active Medications Acetaminophen (Acetaminophen 325 Mg Tablet) 650 mg PO Q6H PRN PRN Reason: Pain, Mild 1-3,fever,headache Calcium Carbonate (Calcium Carbonate 750 Mg Tab.Chew) 750 mg PO Q4H PRN PRN Reason: Heartburn Ceftriaxone Sodium (Ceftriaxone Sodium 2 Gm Vial) 2 gm IVPUSH Q24H [facility] Thiamine HCl 100 mg/ Sodium (Chloride) 101 mls @ 202 mls/hr IV DAILY [facility] Folic Acid 1 mg/ Sodium (Chloride) 50.2 mls @ 100.4 mls/hr IV DAILY [facility] Octreotide Acetate 500 mcg/ (Sodium Chloride) 501 mls @ 50.1 mls/hr IVCONT .Q10H [facility] Metronidazole (Flagyl) 500 mg in 100 mls @ 100 mls/hr IV Q8H [facility] Magnesium Hydroxide (Milk Of Magnesia 30 Ml Oral.Susp) 30 ml PO DAILY PRN PRN Reason: Constipation Melatonin (Melatonin 3 Mg Tablet) 6 mg PO BEDTIME PRN PRN Reason: Insomnia Ondansetron HCl (Ondansetron Hcl 4 Mg/2 Ml Vial) 4 mg IVPUSH Q8H PRN PRN Reason: Nausea and Vomiting Pantoprazole Sodium (Pantoprazole Sodium 40 Mg/10 Ml Vial) 40 mg IVPUSH BID@0630,1630 [facility] Pharmacy Consult (Consult Rx Etoh Phenob Im/Po) 1 each MISCELLANE ONCE PRN; Protocol PRN Reason: Consult order Phenobarbital 30 mg/ (Phenobarbital 15 mg) 45 mg PO BID [facility] Stop: 11/30/24 21:01 Phenobarbital (Phenobarbital 15 Mg Tablet) 15 mg PO BID@0700,1900 [facility] Stop: 12/03/24 07:01 Phenobarbital (Phenobarbital 15 Mg Tablet) 15 mg PO DAILY@1900 [facility] Stop: 12/04/24 19:01 Phenobarbital Sodium (Phenobarbital Sodium 130 Mg/Ml Vial) 172 mg IM Q3H [facility] Stop: 11/29/24 10:01 Last Admin: 11/29/24 06:57 Dose: 172 mg Documented By: AYALA Sodium Chloride (0.9 % Sodium Chloride Flush 3 Ml Syringe) 3 ml IVFLUSH QSHIFT [facility] Labs 11/29/24 08:07 11/29/24 02:29 Labs: Laboratory Results - last 24 hr 11/29/24 11/29/24 02:29 03:39 MCV 98.2 H MCH 33.2 H MCHC 33.8 RDW 14.4 Plt Count 33 L D MPV 11.9 Immature Gran % (Auto) 0.4 Neut % (Auto) 86.7 H Lymph % (Auto) 5.9 L Cobb % (Auto) 4.8 Eos % (Auto) 2.0 Baso % (Auto) 0.2 Lymph # (Auto) 0.3 L Cobb # (Auto) 0.3 Eos # (Auto) 0.1 Baso # (Auto) 0.0 Abs Immat Gran (auto) 0.02 Absolute Neuts (auto) 4.8 Absolute Nucleated RBC 0.000 Nucleated RBC % (auto) 0.0 Anion Gap 14 Estim Creat Clear Calc 92.8 Estimated GFR > 60 Random Glucose 116 H Lactic Acid 1.1 Calcium 8.7 D Magnesium 1.4 L* Total Bilirubin 1.8 H AST 47 H ALT 19 Alkaline Phosphatase 180 H Total Protein 7.2 Albumin 3.3 L Lipase 45 Ethyl Alcohol < 10 Influenza Type A (PCR) NEGATIVE Influenza Type B (PCR) NEGATIVE RSV RNA Qual (PCR) NEGATIVE SARS-CoV-2 RNA (RT-PCR) NEGATIVE Blood Type B Positive Antibody Screen NEGATIVE Crossmatch (AHG) See Detail Assessment and Plan (1) Aspiration pneumonia: Status: Acute (2) Alcohol abuse: Status: Acute (3) Thrombocytopenia: Status: Acute (4) Epistaxis: Status: Acute Plan This is a 54-year-old male with pertinent history of alcohol use disorder with alcoholic cirrhosis, gastroesophageal reflux disease who presents to the emergency department for management of nosebleed and vomiting. Sepsis due to aspiration pneumonia: met sepsis criteria with fever, tachycardia, tachypnea NPO, speech consult when more awake lactic acid normal low platelets and elevated bili due to underlying liver dz/etoh use not severe sepsis continue IV abx ceftriaxone/flagyl blood cultures pending aspiration precautions acute metabolic encephalopathy due to above and hepatic encehalopathy ammonia 185 - starting rectal lactulose coffee ground emesis possible due to upper GI source including possible gastritis, esophageal varicies vs blood from epistaxis continue IV Protonix GI consult pending INR 1.6 check cbc q6h empiric octreotide Hypomagnesemia due to alcoholism: Repleted, follow magnesium level Epistaxis: Controlled in the ER with cocaine hcl Alcohol use disorder: Phenobarb protocol initiated in the ER. Monitor CIWA continue IV thiamine and folic acid Addiction Team when appropriate Pancytopenia due to splenomegaly in the setting of cirrhosis and alcoholism: 1 unit platelet in 2 unit PRBC being transfused in the ER due to epistaxis DVT prophylaxis: Mechanical Full code discussed with ICU possible transfer to ICU for higher level of care. does not require ICU at this time. requires ongoing inpatient hospital stay for IV antibiotics, management of alcohol withdrawal (as above), encephalopathy requiring rectal lactulose, etc which is not possible in a lesser acute setting. Quality Stroke Does the patient have a stroke diagnosis?: No VTE Prior VTE?: No VTE Risk Level:: Medical - moderate - high VTE Device Contraindication: N/A - Device Ordered VTE Drug Contraindication: Treatment Not Indicated
[2024-11-29] MEDS: Thiamine HCL 100 MG in 0.9 % Sodium Chloride 100 ML 202 MG IV (07:46)
[2024-11-29] MEDS: Octreotide Acetate 500 MCG in 0.9 % Sodium Chloride 500 ML 50.1 MCG IVCONT ×2 (08:07→17:44)
[2024-11-29 08:12] LABS: MANUAL DIFF FLAG NO
[2024-11-29 08:16] LABS: Basophils Percent Auto 0.2 % (0-2); Eosinophils Percent Auto 0.7 % (0-4); Hematocrit 26.6 % (42.0-52.0); Hemoglobin 8.8 g/dl (14.0-18.0); Imm Gran Abs Auto 0.06 X10*3/uL (0.00-0.03); Imm Gran Pct Auto 1.1 % (0.0-0.4); Lymphocytes Absolute Auto 0.2 X10*3/uL (1.2-4.9); Lymphocytes Percent Auto 3.7 % (20-40); Mean Corpuscular HGB Conc 33.1 g/dl (31.0-36.0); Mean Corpuscular Volume 96.7 fL (80.0-98.0); Mean Platelet Volume 12.1 fL (9.4-12.4); Monocytes Absolute Auto 0.3 X10*3/uL (0.1-1.2); Monocytes Percent Auto 4.9 % (2-11); Neutrophils Absolute Auto 4.8 x10*3/uL (2.0-8.3); Neutrophils Percent Auto 89.4 % (45-73); Red Blood Count 2.75 X10*6/uL (4.60-5.80); Red Cell Distribution Width 16.4 % (11.0-16.0); White Blood Count 5.3 X10*3/uL (4.8-10.8)
[2024-11-29 08:19] LABS: Ammonia 183 umol/L (13-55)
[2024-11-29 08:20] LABS: INTERNATIONAL NORM RATIO 1.6 (0.9-1.1); Prothrombin Time 19.2 SEC (10.9-12.4)
[2024-11-29 08:21] LABS: Platelet Count 38 X10*3/uL (160-400)
[2024-11-29] MEDS: Acetaminophen Supp 650 MG SUPP.RECT PR (08:24)
[2024-11-29] MEDS: metroNIDAZOLE/NS 500 MG/100 ML PIGGYBACK 100 MG IV ×3 (08:25→23:35)
[2024-11-29] MEDS: 0.9 % Sodium Chloride Flush 3 ML SYRINGE IVFLUSH ×2 (08:28→15:43)
--- NOTE | 2024-11-29 09:16 | PC.NURSE ---
Addendum entered by Venita Salcedo 11/29/24 12:26: Yazmin WALLACE down to see patient. patient temp down to 100.4. will repeat H&H at 1300 to assess and see it additional bags of blood needed. Original Note: assumed care of patient at 0700. patient receiving RBCs. making moaning sounds. usually awake and alert and oriented. is known ETOH use. hospitalist MADISON down to assess patient. patient had vomited large amount of dark red emesis prior to PA coming to see him. ? ICU admit but was not accepted. vitals WNL. meds administered per JAN. when RBCs completed vitals updated and patient found to be febrile. rectal Tylenol administered per JAN. patient now appears to be resting more comfortably. GI came down to assess patient. no further vomiting noted. patient pending admission bed assignment.
[2024-11-29] MEDS: Folic Acid 1 MG in 0.9 % Sodium Chloride 50 ML 100.4 MG IV (09:23)
--- NOTE | 2024-11-29 10:08 | MHC.SLORD ---
Addendum entered and electronically signed by Suha Marcos MA, CCC-[employer] 11/29/24 17:56: Patient is still not able to participate in swallow eval this evening. Notified PA via [employer] secure text. Original Note: Speech Language Pathology Order Status: Unable to wake patient for bedside swallow eval this morning. Notified PA & RD. Plan to re-attempt later this p.m. Please contact [employer] via [place] or ext [phone] if patient becomes more awake and alert before then.
[2024-11-29] MEDS: Lactulose 320 GM/480 ML SOLUTION 200 GM PR ×2 (10:35→16:04)
--- NOTE | 2024-11-29 11:50 | PHA.MEDREC ---
Pharmacy Consult ? Medication Reconciliation Pharmacy has completed the medication reconciliation. Tried to talk to patient multiple times but patient is deep asleep. Called HCP Guillermo Delgado (brother) who said pt is not taking any medication. Called [facility] and spoke to pharmacist who provided pharmacy claims informations. All meds were fileld on 11/15/24 and delivered to patient before discharge on 11/15/24.
[2024-11-29] MEDS: Lactated Ringers 1,000 ML 100 ML IVCONT ×2 (12:09→22:15)
[2024-11-29 13:14] LABS: Hematocrit 23.8 % (42.0-52.0)
[2024-11-29 13:23] LABS: Ammonia 124 umol/L (13-55)
--- NOTE | 2024-11-29 15:28 | PC.NURSE ---
2nd unit of RBCS started at 1513. different time showing in TAR
[2024-11-29] MEDS: Pantoprazole Sodium 40 MG/10 ML VIAL IVPUSH (15:38)
--- NOTE | 2024-11-29 18:04 | PM.GICN ---
History of Present Illness Data of Consult Service Date: 11/29/24 Requesting physician: Yazmin Shafer Primary Care Provider: [facility] HPI Reason for consult: anemia 54-year-old male with history of alcohol use disorder with alcoholic cirrhosis, gastroesophageal reflux disease and non compliance who I am seeing for evaluation of anemia. No history from patient, due to somnolence. Hx from chart and providers, health care staff--has been on phenobarbital protocol for alcohol withdrawal patient came to ED with left sided nose bleed with multiple episodes of coffee ground vomiting in the ER. He was also noted to have a fever and imaging revealed supsected aspiration pneumonia. Of note had been coming to the ED last few days with various complaints incl right sided nose bleed and acute alcohol intoxication. Last EGD 01/23/24 with varices but no red stroud, portal hypertensive gastropathy and banding performed Review of Systems Review of Systems: Yes Unobtainable due to mental condition and Unobtainable due to mental status PMFSH Past Medical History Medical History Alcoholic liver disease Aspiration pneumonia Thrombocytopenia Malnutrition CHF (congestive heart failure) Anemia Hypomagnesemia Cirrhosis Thrombocytopenia Acute on chronic anemia CHF (congestive heart failure) Anemia Pneumonia Alcohol abuse Alcohol withdrawal syndrome Family History Pertinent family history: unable to obtain Surgical History Surgical History No history of previous surgery Social History Social History Household Members: None Household Members Other:: pt homeless Housing: Homeless Housing Other:: homeless Do you presently have visiting nurse or other home services: No Unable to assess alcohol history related to: Refusing to respond Alcohol intake: current Alcohol intake frequency: 3 or more drinks per day Alcohol type: hard liquor Comment: 1 assist to bathroom Patient Tobacco Use Status: Former Tobacco user Tobacco use type: Cigarette Smoked in Last 30 Days: No Second Hand Smoke Exposure: No Use of substances other than those prescribed or required for medical reasons: No Advance Directives: Yes Advance Directives on File: Yes Advance Directives Date on File: 07/13/23 service: No Meds Allergies Allergy/AdvReac Type Severity Reaction Status Date / Time No Known Allergies Allergy Verified 11/28/24 16:16 [No Known Allergies*] Active Medications: Current Medications Acetaminophen (Acetaminophen 325 Mg Tablet) 650 mg PO Q6H PRN PRN Reason: Pain, Mild 1-3,fever,headache Acetaminophen (Acetaminophen Supp 650 Mg Supp.Rect) 650 mg AL Q6H PRN PRN Reason: Fever >100.4 Last Admin: 11/29/24 08:24 Dose: 650 mg Calcium Carbonate (Calcium Carbonate 750 Mg Tab.Chew) 750 mg PO Q4H PRN PRN Reason: Heartburn Ceftriaxone Sodium (Ceftriaxone Sodium 2 Gm Vial) 2 gm IVPUSH Q24H [facility] Thiamine HCl 100 mg/ Sodium (Chloride) 101 mls @ 202 mls/hr IV DAILY [facility] Last Infusion: 11/29/24 08:20 Dose: Infused Folic Acid 1 mg/ Sodium (Chloride) 50.2 mls @ 100.4 mls/hr IV DAILY [facility] Last Infusion: 11/29/24 09:41 Dose: Infused Octreotide Acetate 500 mcg/ (Sodium Chloride) 501 mls @ 50.1 mls/hr IVCONT .Q10H [facility] Last Admin: 11/29/24 17:44 Dose: 50 mcg/hr, 50.1 mls/hr Metronidazole (Flagyl) 500 mg in 100 mls @ 100 mls/hr IV Q8H [facility] Last Infusion: 11/29/24 17:37 Dose: Infused Lactated Ringer's (Lr) 1,000 mls @ 100 mls/hr IVCONT .Q10H [facility] Last Admin: 11/29/24 12:09 Dose: 100 mls/hr Lactulose (Lactulose 320 Gm/480 Ml Solution) 200 gm AL Q6H [facility] Last Admin: 11/29/24 16:04 Dose: 200 gm Magnesium Hydroxide (Milk Of Magnesia 30 Ml Oral.Susp) 30 ml PO DAILY PRN PRN Reason: Constipation Melatonin (Melatonin 3 Mg Tablet) 6 mg PO BEDTIME PRN PRN Reason: Insomnia Ondansetron HCl (Ondansetron Hcl 4 Mg/2 Ml Vial) 4 mg IVPUSH Q8H PRN PRN Reason: Nausea and Vomiting Pantoprazole Sodium (Pantoprazole Sodium 40 Mg/10 Ml Vial) 40 mg IVPUSH BID@0630,1630 [facility] Last Admin: 11/29/24 15:38 Dose: 40 mg Pharmacy Consult (Consult Rx Etoh Phenob Im/Po) 1 each MISCELLANE ONCE PRN; Protocol PRN Reason: Consult order Phenobarbital 30 mg/ (Phenobarbital 15 mg) 45 mg PO BID [facility] Stop: 11/30/24 21:01 Phenobarbital (Phenobarbital 15 Mg Tablet) 15 mg PO BID@0700,1900 [facility] Stop: 12/03/24 07:01 Phenobarbital (Phenobarbital 15 Mg Tablet) 15 mg PO DAILY@1900 [facility] Stop: 12/04/24 19:01 Sodium Chloride (0.9 % Sodium Chloride Flush 3 Ml Syringe) 3 ml IVFLUSH QSHIFT [facility] Last Admin: 11/29/24 15:43 Dose: 3 ml Physical Exam Vital Signs: Vital Signs: Last Vital Signs Temp 99 F 11/29/24 15:34 Pulse 83 11/29/24 15:34 Resp 20 11/29/24 15:34 BP 109/61 11/29/24 15:34 Pulse Ox 99 11/29/24 15:34 O2 Del Method Nasal Cannula 11/29/24 15:34 O2 Flow Rate 2 11/29/24 15:34 BMI result Body Mass Index 20.4 EXAM: GENERAL: The patient is dishevelled, non verbal but responsive to pain VITAL SIGNS:see workflow HEENT: Nonicteric sclerae, PERRLA, EOMI. Oropharynx clear. Moist mucous membranes. Conjunctivae appear pale. No thyroid mass. CHEST: Chest wall is nontender. HEART: Regular rate and rhythm without murmurs. LUNGS: Clear to auscultation bilaterally. ABDOMEN: Soft, positive bowel sounds, nontender, no organomegaly.no flank tenderness SKIN: No rash, no excessive bruising, petechiae, or purpura. NEUROLOGIC: repsonisve to pain, breathing spontaneously Psych: somnolent Results Labs 11/29/24 13:08 11/29/24 02:29 Labs: Short CBC 11/29/24 11/29/24 11/29/24 Range/Units 02:29 08:07 08:07 WBC 5.5 5.3 (4.8-10.8) X10*3/uL Hgb 7.5 L 8.8 L Cancelled (14.0-18.0) g/dl Hct 22.2 L D 26.6 L (42.0-52.0) % Plt Count 33 L D (160-400) X10*3/uL 11/29/24 11/29/24 Range/Units 08:07 13:08 WBC (4.8-10.8) X10*3/uL Hgb 8.0 L (14.0-18.0) g/dl Hct Cancelled 23.8 L (42.0-52.0) % Plt Count 38 L (160-400) X10*3/uL BMP 11/29/24 02:29 Sodium 138 Potassium 3.7 Chloride 105 Carbon Dioxide 23 BUN 29 H Creatinine 0.73 Calcium 8.7 D Liver Function 11/29/24 Range/Units 02:29 Total Bilirubin 1.8 H (0.0-1.0) mg/dL AST 47 H (5-37) U/L ALT 19 (0-40) U/L Alkaline Phosphatase 180 H (39-117) U/L Albumin 3.3 L (3.5-5.0) g/dL Imaging CT scan - abdomen: Attestation: I personally reviewed and interpreted this imaging study as follows: (hepatomegaly, minimal ascites, wedge fracture noted ) Assessment and Plan (1) Alcohol abuse: Status: Acute (2) Epistaxis: Status: Acute Plan 1/ Anemia with coffee ground vomiting reported, probably from epistaxis, his vitals are stable, I have a low suspicion for variceal bleed bu he does have a hx of alcohol related cirrhosis with varices noted on prior endoscopies PLAN: 1/ Transfuse and can give plts aim for >50 and HGB 8-9 g/dl, vit K 10 mg IV for 3 d 2/ cont with abx as doing for aspiriation pneumonia 3/ tentative EGD tomorrow for further eval afte resuscitation with fluids and plts 4/ cont with abx and PPI, octreotide -can use lactulose enema, although he is probably somnolent from ativan and phenobarb, can check tox screen and actaminphen level Procedures Date of Service Date of Service: 11/29/24
--- NOTE | 2024-11-29 19:20 | PC.NURSE ---
This RN assumed pt care @ 1900. Pt resting arousable to touch, no signs of distress. Plan of care ongoing.
--- NOTE | 2024-11-29 19:28 | PC.NURSE ---
Pt has PO phenobard med due at 1900. Provider Edison notified and aware pt is unable to take PO meds at this time as he is only responds to touch/painful stimuli. Per Dr. Hogan we will hold all PO meds at this time. Plan of care ongoing.
[2024-11-29 20:21] LABS: Hematocrit 30.5 % (42.0-52.0); Hemoglobin 9.4 g/dl (14.0-18.0)
--- NOTE | 2024-11-29 21:26 | PC.NURSE ---
Pt medicated per [facility] Plan of care ongoing..
[2024-11-30] VITALS (10 sets, daily range): BP systolic 112–143; BP diastolic 49–73; PULSE 75–90; RESP 17–20; TEMP 36.4–37.3; O2SAT 92–96; BMI 20.7
[2024-11-30] MEDS: Octreotide Acetate 500 MCG in 0.9 % Sodium Chloride 500 ML 50.1 MCG IVCONT ×2 (04:53→14:32)
[2024-11-30 05:46] LABS: Hematocrit 25.5 % (42.0-52.0); Hemoglobin 8.5 g/dl (14.0-18.0)
[2024-11-30 06:06] LABS: MANUAL DIFF FLAG NO
[2024-11-30 06:19] LABS: Ammonia 70 umol/L (13-55)
[2024-11-30 06:22] LABS: Basophils Percent Auto 0.2 % (0-2); Eosinophils Absolute Auto 0.2 X10*3/uL (0.0-0.4); Eosinophils Percent Auto 3.4 % (0-4); Hematocrit 26.6 % (42.0-52.0); Hemoglobin 8.9 g/dl (14.0-18.0); Imm Gran Abs Auto 0.02 X10*3/uL (0.00-0.03); Imm Gran Pct Auto 0.5 % (0.0-0.4); Lymphocytes Absolute Auto 0.7 X10*3/uL (1.2-4.9); Lymphocytes Percent Auto 15.3 % (20-40); Mean Corpuscular HGB Conc 33.5 g/dl (31.0-36.0); Mean Corpuscular Hemoglobin 32.2 pg (27.0-33.0); Mean Corpuscular Volume 96.4 fL (80.0-98.0); Mean Platelet Volume 12.5 fL (9.4-12.4); Monocytes Absolute Auto 0.3 X10*3/uL (0.1-1.2); Monocytes Percent Auto 6.5 % (2-11); Neutrophils Absolute Auto 3.3 x10*3/uL (2.0-8.3); Neutrophils Percent Auto 74.1 % (45-73); Platelet Count 37 X10*3/uL (160-400); Red Blood Count 2.76 X10*6/uL (4.60-5.80); Red Cell Distribution Width 17.5 % (11.0-16.0); White Blood Count 4.4 X10*3/uL (4.8-10.8)
[2024-11-30 06:27] LABS: Magnesium 1.6 mg/dL (1.6-2.6)
[2024-11-30 06:29] LABS: Anion Gap 10 (12-20); Blood Urea Nitrogen 12 mg/dL (9-16); Calcium 7.6 mg/dL (8.4-10.2); Carbon Dioxide 17 mmol/L (22-29); Chloride 117 mmol/L (96-108); Creatinine Clr Calc Pharmacy 112.8; Estimated Glomerular Filt Rate > 60; Glucose Random 119 mg/dL (60-115); Potassium 3.2 mmol/L (3.3-5.1); Sodium 141 mmol/L (135-145)
[2024-11-30] MEDS: metroNIDAZOLE/NS 500 MG/100 ML PIGGYBACK 100 MG IV ×3 (06:54→22:57)
[2024-11-30] MEDS: Pantoprazole Sodium 40 MG/10 ML VIAL IVPUSH ×2 (07:00→17:06)
--- NOTE | 2024-11-30 08:33 | P.CONAN_ITS ---
HPI - Anesthesia Eval Consult details Narrative: GI bleed PMFSH Active Problems Active Problems: All Active Problems Aspiration pneumonia (Acute) Alcohol abuse (Acute) Thrombocytopenia (Acute) Sepsis (Acute) Epistaxis (Acute) Hypoxia (Acute) Esophageal varices (Acute) Acute blood loss anemia (Acute) Alcohol use disorder (Acute) Pancytopenia (Acute) Acute on chronic anemia (Acute) Past Medical History Medical History Alcoholic liver disease Aspiration pneumonia Thrombocytopenia Malnutrition CHF (congestive heart failure) Anemia Hypomagnesemia Cirrhosis Thrombocytopenia Acute on chronic anemia CHF (congestive heart failure) Anemia Pneumonia Alcohol abuse Alcohol withdrawal syndrome Family History Family history of problems with anesthesia: No Surgical History Surgical History No history of previous surgery History of Problems with Anesthesia: No Social History Social History Household Members: Other Household Members Other:: pt homeless Housing: Homeless Housing Other:: homeless Do you presently have visiting nurse or other home services: No Unable to assess alcohol history related to: Refusing to respond Alcohol intake: current Alcohol intake frequency: 3 or more drinks per day Alcohol type: hard liquor Comment: 1 assist to bathroom Patient Tobacco Use Status: Former Tobacco user Tobacco use type: Cigarette Second Hand Smoke Exposure: No Advance Directives Date on File: 07/13/23 service: No Meds Allergies Allergy/AdvReac Type Severity Reaction Status Date / Time No Known Allergies Allergy Verified 11/28/24 16:16 [No Known Allergies*] Active Medications: Current Medications Acetaminophen (Acetaminophen 325 Mg Tablet) 650 mg PO Q6H PRN PRN Reason: Pain, Mild 1-3,fever,headache Acetaminophen (Acetaminophen Supp 650 Mg Supp.Rect) 650 mg [place] Q6H PRN PRN Reason: Fever >100.4 Last Admin: 11/29/24 08:24 Dose: 650 mg Calcium Carbonate (Calcium Carbonate 750 Mg Tab.Chew) 750 mg PO Q4H PRN PRN Reason: Heartburn Ceftriaxone Sodium (Ceftriaxone Sodium 2 Gm Vial) 2 gm IVPUSH Q24H [facility] Last Admin: 11/29/24 21:21 Dose: 2 gm Thiamine HCl 100 mg/ Sodium (Chloride) 101 mls @ 202 mls/hr IV DAILY [facility] Last Infusion: 11/29/24 08:20 Dose: Infused Folic Acid 1 mg/ Sodium (Chloride) 50.2 mls @ 100.4 mls/hr IV DAILY [facility] Last Infusion: 11/29/24 09:41 Dose: Infused Octreotide Acetate 500 mcg/ (Sodium Chloride) 501 mls @ 50.1 mls/hr IVCONT .Q10H [facility] Last Admin: 11/30/24 04:53 Dose: 50 mcg/hr, 50.1 mls/hr Metronidazole (Flagyl) 500 mg in 100 mls @ 100 mls/hr IV Q8H [facility] Last Admin: 11/30/24 06:54 Dose: 100 mls/hr Lactated Ringer's (Lr) 1,000 mls @ 100 mls/hr IVCONT .Q10H [facility] Last Admin: 11/29/24 22:15 Dose: 100 mls/hr Lactulose (Lactulose 320 Gm/480 Ml Solution) 200 gm [place] Q6H [facility] Last Admin: 11/30/24 04:57 Dose: Not Given Magnesium Hydroxide (Milk Of Magnesia 30 Ml Oral.Susp) 30 ml PO DAILY PRN PRN Reason: Constipation Melatonin (Melatonin 3 Mg Tablet) 6 mg PO BEDTIME PRN PRN Reason: Insomnia Ondansetron HCl (Ondansetron Hcl 4 Mg/2 Ml Vial) 4 mg IVPUSH Q8H PRN PRN Reason: Nausea and Vomiting Pantoprazole Sodium (Pantoprazole Sodium 40 Mg/10 Ml Vial) 40 mg IVPUSH BID@0630,1630 [facility] Last Admin: 11/30/24 07:00 Dose: 40 mg Pharmacy Consult (Consult Rx Etoh Phenob Im/Po) 1 each MISCELLANE ONCE PRN; Protocol PRN Reason: Consult order Phenobarbital 30 mg/ (Phenobarbital 15 mg) 45 mg PO BID [facility] Stop: 11/30/24 21:01 Last Admin: 11/29/24 22:30 Dose: Not Given Phenobarbital (Phenobarbital 15 Mg Tablet) 15 mg PO BID@0700,1900 [facility] Stop: 12/03/24 07:01 Phenobarbital (Phenobarbital 15 Mg Tablet) 15 mg PO DAILY@1900 [facility] Stop: 12/04/24 19:01 Sodium Chloride (0.9 % Sodium Chloride Flush 3 Ml Syringe) 3 ml IVFLUSH QSHIFT [facility] Last Admin: 11/30/24 00:00 Dose: 3 ml Exam Height,Weight and Vital Signs: Height 5 ft 6 in Weight 58.3 kg Last Vital Signs Temp 98.5 F 11/30/24 07:08 Pulse 83 11/30/24 07:08 Resp 17 11/30/24 07:08 BP 131/61 11/30/24 07:08 Pulse Ox 94 11/30/24 07:08 O2 Del Method Nasal Cannula 11/30/24 07:08 O2 Flow Rate 3 11/30/24 07:08 Pertinent Lab Results Pertinent Lab Results: Laboratory Tests 11/29/24 11/29/24 11/29/24 02:29 03:39 08:07 WBC 5.5 5.3 RBC 2.26 L 2.75 L D Hgb 7.5 L 8.8 L Hct 22.2 L D MCV 98.2 H MCH 33.2 H MCHC 33.8 RDW 14.4 Plt Count 33 L D MPV 11.9 Immature Gran % (Auto) 0.4 Neut % (Auto) 86.7 H Lymph % (Auto) 5.9 L [place] % (Auto) 4.8 Eos % (Auto) 2.0 Baso % (Auto) 0.2 Lymph # (Auto) 0.3 L [place] # (Auto) 0.3 Eos # (Auto) 0.1 Baso # (Auto) 0.0 Abs Immat Gran (auto) 0.02 Absolute Neuts (auto) 4.8 Absolute Nucleated RBC 0.000 Nucleated RBC % (auto) 0.0 PT INR Sodium 138 Potassium 3.7 Chloride 105 Carbon Dioxide 23 Anion Gap 14 BUN 29 H Creatinine 0.73 Estim Creat Clear Calc 92.8 Estimated GFR > 60 Random Glucose 116 H Lactic Acid 1.1 Calcium 8.7 D Magnesium 1.4 L* Total Bilirubin 1.8 H AST 47 H ALT 19 Alkaline Phosphatase 180 H Ammonia Total Protein 7.2 Albumin 3.3 L Lipase 45 Ethyl Alcohol < 10 Influenza Type A (PCR) NEGATIVE Influenza Type B (PCR) NEGATIVE RSV RNA Qual (PCR) NEGATIVE SARS-CoV-2 RNA (RT-PCR) NEGATIVE Blood Type B Positive Antibody Screen NEGATIVE Crossmatch (AHG) See Detail 11/29/24 11/29/24 11/29/24 08:07 08:07 13:08 WBC RBC Hgb Cancelled 8.0 L Hct 26.6 L Cancelled 23.8 L MCV 96.7 MCH 32.0 MCHC 33.1 RDW 16.4 H Plt Count 38 L MPV 12.1 Immature Gran % (Auto) 1.1 H Neut % (Auto) 89.4 H Lymph % (Auto) 3.7 L [place] % (Auto) 4.9 Eos % (Auto) 0.7 Baso % (Auto) 0.2 Lymph # (Auto) 0.2 L [place] # (Auto) 0.3 Eos # (Auto) 0.0 Baso # (Auto) 0.0 Abs Immat Gran (auto) 0.06 H Absolute Neuts (auto) 4.8 Absolute Nucleated RBC 0.000 Nucleated RBC % (auto) 0.0 PT 19.2 H INR 1.6 H Sodium Potassium Chloride Carbon Dioxide Anion Gap BUN Creatinine Estim Creat Clear Calc Estimated GFR Random Glucose Lactic Acid Calcium Magnesium Total Bilirubin AST ALT Alkaline Phosphatase Ammonia 183 H 124 H Total Protein Albumin Lipase Ethyl Alcohol Influenza Type A (PCR) Influenza Type B (PCR) RSV RNA Qual (PCR) SARS-CoV-2 RNA (RT-PCR) Blood Type Antibody Screen Crossmatch ([facility]) 11/29/24 11/30/24 11/30/24 20:12 03:13 05:47 WBC 4.4 L RBC 2.76 L Hgb 9.4 L 8.5 L 8.9 L Hct 30.5 L D 25.5 L 26.6 L MCV 96.4 MCH 32.2 MCHC 33.5 RDW 17.5 H Plt Count 37 L MPV 12.5 H Immature Gran % (Auto) 0.5 H Neut % (Auto) 74.1 H Lymph % (Auto) 15.3 L [place] % (Auto) 6.5 Eos % (Auto) 3.4 Baso % (Auto) 0.2 Lymph # (Auto) 0.7 L [place] # (Auto) 0.3 Eos # (Auto) 0.2 Baso # (Auto) 0.0 Abs Immat Gran (auto) 0.02 Absolute Neuts (auto) 3.3 Absolute Nucleated RBC 0.000 Nucleated RBC % (auto) 0.0 PT INR Sodium 141 Potassium 3.2 L Chloride 117 H Carbon Dioxide 17 L Anion Gap 10 L BUN 12 Creatinine 0.61 Estim Creat Clear Calc 112.8 Estimated GFR > 60 Random Glucose 119 H Lactic Acid Calcium 7.6 L D Magnesium 1.6 Total Bilirubin AST ALT Alkaline Phosphatase Ammonia 70 H Total Protein Albumin Lipase Ethyl Alcohol Influenza Type A (PCR) Influenza Type B (PCR) RSV RNA Qual (PCR) SARS-CoV-2 RNA (RT-PCR) Blood Type Antibody Screen Crossmatch (AHG) Airway Mallampati Class: I TM Dist: >3cm Neck ROM: Full Loose/Missing/Broken Teeth: No Heart: RRR Lungs: CTA Assessment and Plan Assessment Anesthesia Assessment: Anesthesia Plan Discussed and Chart Reviewed Final Anesthetic Review Family History of Problems with Anesthesia: No History of Problems with Anesthesia: No NPO: Yes ASA Class: III Final Preanesthetic Review: No Changes in Pt Med Stat, Meds/Allgs Chart Reviewed, Consent Obtained/Reviewed and Anes Risks/Benef Reviewed Patient Risk: Intermediate Procedure Risk: Low Anesthetic Plan Anesthetic Plan: TIVA Disposition: Standard PACU
--- NOTE | 2024-11-30 08:38 | MHC.CM.PN ---
11/30/24 08:32 - Case Mgmt Progress Note by Sandi Trujillo Acct Num: [id number] : 1970 Patient Age: 54 Patient dc'd from [facility] [place] on 11/15/[place]. Patient is homeless and lives behind [place] [address]; he typically refuses longterm and STR. Patient is documented to be a 2 assist at this time; at one point, Patient was considering [facility]. CM has initiated and will follow for dc planning. Patient has no PCP but he has been educated on the availability of HHC. Patient's Brother/Guillermo is the HCP; transpiration is TBD pending disposition. Initialized on 11/30/24 08:32 - END OF NOTE
--- NOTE | 2024-11-30 10:03 | HO.PM.IMPN ---
Subjective Subjective Date of Service: 11/30/24 Interval History: seen and examined this morning follow up for nose bleed, etoh, gi bleeding pt lethargic unable to provide history, unable to obtain ROS Physical Exam Vital Signs: Vital Signs: Last Vital Signs Temp 98.5 F 11/30/24 07:08 Pulse 83 11/30/24 07:08 Resp 17 11/30/24 07:08 BP 131/61 11/30/24 07:08 Pulse Ox 94 11/30/24 07:08 O2 Del Method Nasal Cannula 11/30/24 07:08 O2 Flow Rate 3 11/30/24 07:08 BMI result Body Mass Index 20.7 Objective Data Active Medications Acetaminophen (Acetaminophen 325 Mg Tablet) 650 mg PO Q6H PRN PRN Reason: Pain, Mild 1-3,fever,headache Acetaminophen (Acetaminophen Supp 650 Mg Supp.Rect) 650 mg [place] Q6H PRN PRN Reason: Fever >100.4 Last Admin: 11/29/24 08:24 Dose: 650 mg Documented By: FRANK Calcium Carbonate (Calcium Carbonate 750 Mg Tab.Chew) 750 mg PO Q4H PRN PRN Reason: Heartburn Ceftriaxone Sodium (Ceftriaxone Sodium 2 Gm Vial) 2 gm IVPUSH Q24H [facility] Last Admin: 11/29/24 21:21 Dose: 2 gm Documented By: ARACELI Thiamine HCl 100 mg/ Sodium (Chloride) 101 mls @ 202 mls/hr IV DAILY [facility] Last Infusion: 11/29/24 08:20 Dose: Infused Documented By: FRANK Folic Acid 1 mg/ Sodium (Chloride) 50.2 mls @ 100.4 mls/hr IV DAILY [facility] Last Infusion: 11/29/24 09:41 Dose: Infused Documented By: FRANK Octreotide Acetate 500 mcg/ (Sodium Chloride) 501 mls @ 50.1 mls/hr IVCONT .Q10H [facility] Last Admin: 11/30/24 04:53 Dose: 50 mcg/hr, 50.1 mls/hr Documented By: YONI Metronidazole (Flagyl) 500 mg in 100 mls @ 100 mls/hr IV Q8H [facility] Last Infusion: 11/30/24 09:57 Dose: Infused Documented By: MACIEJ Lactated Ringer's (Lr) 1,000 mls @ 100 mls/hr IVCONT .Q10H [facility] Last Infusion: 11/30/24 09:57 Dose: Infused Documented By: MACIEJ Lactulose (Lactulose 320 Gm/480 Ml Solution) 200 gm [place] Q6H [facility] Last Admin: 11/30/24 04:57 Dose: Not Given Documented By: YONI Non-Admin Reason: NPO Magnesium Hydroxide (Milk Of Magnesia 30 Ml Oral.Susp) 30 ml PO DAILY PRN PRN Reason: Constipation Melatonin (Melatonin 3 Mg Tablet) 6 mg PO BEDTIME PRN PRN Reason: Insomnia Naloxone HCl (Naloxone Hcl 0.4 Mg/Ml Vial) 0.04 mg IVPUSH Q5M PRN PRN Reason: Excessive sedation or RR < 8 Ondansetron HCl (Ondansetron Hcl 4 Mg/2 Ml Vial) 4 mg IVPUSH Q8H PRN PRN Reason: Nausea and Vomiting Ondansetron HCl (Ondansetron Hcl 4 Mg/2 Ml Vial) 4 mg IVPUSH ONCE PRN PRN Reason: Nausea and Vomiting Stop: 11/30/24 14:35 Pantoprazole Sodium (Pantoprazole Sodium 40 Mg/10 Ml Vial) 40 mg IVPUSH BID@0630,1630 [facility] Last Admin: 11/30/24 07:00 Dose: 40 mg Documented By: YONI Pharmacy Consult (Consult Rx Etoh Phenob Im/Po) 1 each MISCELLANE ONCE PRN; Protocol PRN Reason: Consult order Phenobarbital 30 mg/ (Phenobarbital 15 mg) 45 mg PO BID [facility] Stop: 11/30/24 21:01 Last Admin: 11/29/24 22:30 Dose: Not Given Documented By: YONI Non-Admin Reason: NPO Phenobarbital (Phenobarbital 15 Mg Tablet) 15 mg PO BID@0700,1900 [facility] Stop: 12/03/24 07:01 Phenobarbital (Phenobarbital 15 Mg Tablet) 15 mg PO DAILY@1900 [facility] Stop: 12/04/24 19:01 Sodium Chloride (0.9 % Sodium Chloride Flush 3 Ml Syringe) 3 ml IVFLUSH QSHIFT [facility] Last Admin: 11/30/24 00:00 Dose: 3 ml Documented By: YONI Labs 11/30/24 05:47 11/30/24 05:47 Labs: Laboratory Results - last 24 hr 11/29/24 11/29/24 11/30/24 03:39 13:08 05:47 MCV 96.4 MCH 32.2 MCHC 33.5 RDW 17.5 H Plt Count 37 L MPV 12.5 H Immature Gran % (Auto) 0.5 H Neut % (Auto) 74.1 H Lymph % (Auto) 15.3 L [place] % (Auto) 6.5 Eos % (Auto) 3.4 Baso % (Auto) 0.2 Lymph # (Auto) 0.7 L [place] # (Auto) 0.3 Eos # (Auto) 0.2 Baso # (Auto) 0.0 Abs Immat Gran (auto) 0.02 Absolute Neuts (auto) 3.3 Absolute Nucleated RBC 0.000 Nucleated RBC % (auto) 0.0 Anion Gap 10 L Estim Creat Clear Calc 112.8 Estimated GFR > 60 Random Glucose 119 H Calcium 7.6 L D Magnesium 1.6 Ammonia 124 H 70 H Blood Type B Positive Antibody Screen NEGATIVE Crossmatch (AHG) See Detail Microbiology Microbiology Results: Microbiology 11/29/24 03:39 Blood Culture - Preliminary Blood - Venous No growth after 24 hours. 11/29/24 03:39 Blood Culture - Preliminary Blood - Venous No growth after 24 hours. Assessment and Plan (1) Aspiration pneumonia: Status: Acute (2) Alcohol abuse: Status: Acute (3) Thrombocytopenia: Status: Acute (4) Epistaxis: Status: Acute Plan This is a 54-year-old male with pertinent history of alcohol use disorder with alcoholic cirrhosis, gastroesophageal reflux disease who presents to the emergency department for management of nosebleed and vomiting. Sepsis due to aspiration pneumonia: met sepsis criteria with fever, tachycardia, tachypnea NPO, speech consult when more awake lactic acid normal low platelets and elevated bili due to underlying liver dz/etoh use not severe sepsis continue IV abx ceftriaxone/flagyl blood cultures neg after 24hrs aspiration precautions acute metabolic encephalopathy due to above and hepatic encehalopathy ammonia down to 70 today-rectal lactulose coffee ground emesis possible due to upper GI source including possible gastritis, esophageal varicies vs blood from epistaxis continue IV Protonix GI consult> EGD today INR 1.6 check cbc q6h empiric octreotide Hypomagnesemia due to alcoholism Replete Epistaxis Controlled in the ER with cocaine hcl Alcohol use disorder Phenobarb protocol initiated in the ER. Monitor CIWA continue IV thiamine and folic acid Addiction Team when appropriate Pancytopenia due to splenomegaly in the setting of cirrhosis and alcoholism 1 unit platelet in 3 unit PRBC being transfused Follow HH DVT prophylaxis: Mechanical Full code discussed with ICU possible transfer to ICU for higher level of care. does not require ICU at this time. Quality Stroke Does the patient have a stroke diagnosis?: No VTE Prior VTE?: No VTE Risk Level:: Medical - moderate - high VTE Device Contraindication: N/A - Device Ordered VTE Drug Contraindication: Treatment Not Indicated
[2024-11-30] MEDS: Lactated Ringers 1,000 ML 100 ML IVCONT ×2 (10:08→17:05)
[2024-11-30] MEDS: 0.9 % Sodium Chloride Flush 3 ML SYRINGE IVFLUSH ×4 (10:13→22:57)
--- NOTE | 2024-11-30 11:06 | P.PNGI_ITS ---
Subjective Subjective Date of Service: 11/30/24 Interval History: more alert today, HGB has been stable no abdominal pain Critical Care Time (minutes): 0 Physical Exam 2 Vital Signs: Vital Signs: Last Vital Signs Temp 98.5 F 11/30/24 07:08 Pulse 83 11/30/24 07:08 Resp 17 11/30/24 07:08 BP 131/61 11/30/24 07:08 Pulse Ox 94 11/30/24 07:08 O2 Del Method Nasal Cannula 11/30/24 07:08 O2 Flow Rate 3 11/30/24 07:08 BMI result Body Mass Index 20.7 EXAM: GENERAL: The patient is dishevelled VITAL SIGNS:see workflow HEENT: Nonicteric sclerae, PERRLA, EOMI. Oropharynx clear. Moist mucous membranes. Conjunctivae appear well perfused. No thyroid mass. CHEST: Chest wall is nontender. HEART: Regular rate and rhythm without murmurs. LUNGS: Clear to auscultation bilaterally. ABDOMEN: Soft, positive bowel sounds, nontender, no organomegaly.no flank tenderness SKIN: No rash, no excessive bruising, petechiae, or purpura. NEUROLOGIC: Cranial nerves II-XII intact without motor/sensory deficit. Psych: grunting, but alert, sleepy at times Objective Data Labs 11/30/24 05:47 11/30/24 05:47 Labs: Laboratory Results - last 24 hr 11/29/24 11/29/24 11/29/24 03:39 13:08 20:12 WBC RBC Hgb 8.0 L 9.4 L Hct 23.8 L 30.5 L D MCV MCH MCHC RDW Plt Count MPV Immature Gran % (Auto) Neut % (Auto) Lymph % (Auto) [place] % (Auto) Eos % (Auto) Baso % (Auto) Lymph # (Auto) [place] # (Auto) Eos # (Auto) Baso # (Auto) Abs Immat Gran (auto) Absolute Neuts (auto) Absolute Nucleated RBC Nucleated RBC % (auto) Sodium Potassium Chloride Carbon Dioxide Anion Gap BUN Creatinine Estim Creat Clear Calc Estimated GFR Random Glucose Calcium Magnesium Ammonia 124 H Blood Type B Positive Antibody Screen NEGATIVE Crossmatch (AHG) See Detail 11/30/24 11/30/24 03:13 05:47 WBC 4.4 L RBC 2.76 L Hgb 8.5 L 8.9 L Hct 25.5 L 26.6 L MCV 96.4 MCH 32.2 MCHC 33.5 RDW 17.5 H Plt Count 37 L MPV 12.5 H Immature Gran % (Auto) 0.5 H Neut % (Auto) 74.1 H Lymph % (Auto) 15.3 L [place] % (Auto) 6.5 Eos % (Auto) 3.4 Baso % (Auto) 0.2 Lymph # (Auto) 0.7 L [place] # (Auto) 0.3 Eos # (Auto) 0.2 Baso # (Auto) 0.0 Abs Immat Gran (auto) 0.02 Absolute Neuts (auto) 3.3 Absolute Nucleated RBC 0.000 Nucleated RBC % (auto) 0.0 Sodium 141 Potassium 3.2 L Chloride 117 H Carbon Dioxide 17 L Anion Gap 10 L BUN 12 Creatinine 0.61 Estim Creat Clear Calc 112.8 Estimated GFR > 60 Random Glucose 119 H Calcium 7.6 L D Magnesium 1.6 Ammonia 70 H Blood Type Antibody Screen Crossmatch (AHG) Microbiology Microbiology Results: Microbiology 11/29/24 03:39 Blood - Venous Blood Culture - Preliminary No growth after 24 hours. 11/29/24 03:39 Blood - Venous Blood Culture - Preliminary No growth after 24 hours. Procedures Date of Service Date of Service: 11/30/24 Progress Note: A&P Assessment and plan (1) Acute blood loss anemia: Status: Acute Plan 1/ Anemai, possibly from epistaxis but given hx of alcoholic cirrhosis need to r/o variceal bleeding PLAN: 1/ cont PPI and octreotide 2/ EGD for fruther assessment Time Spent With Patient Time: Total time managing care of this patient today ____ minutes. Quality Stroke Does the patient have a stroke diagnosis?: No VTE Prior VTE?: No VTE Risk Level:: Medical - moderate - high VTE Device Contraindication: N/A - Device Ordered VTE Drug Contraindication: Treatment Not Indicated
--- NOTE | 2024-11-30 11:06 | MHC.SHP ---
Pre-Procedural Eval Section A - 24 Hr Update-Section A only Date of Service: 11/30/24 The patient is an INPATIENT: Yes The patient has been examined within 24 hours of the surgical procedure. The History & Physical has been completed within 30 days and I have reviewed it.: Yes Section B - Complete if H&P > 30 days Chief Complaint: Dyspnea Allergies: Allergies Allergy/AdvReac Type Severity Reaction Status Date / Time No Known Allergies Allergy Verified 11/28/24 16:16 [No Known Allergies*] Plan I have reviewed the history and physical and performed a pertinent physical examination on my patient. No changes have occurred unless specified. Time Spent With Patient Time: Total time managing care of this patient today ____ minutes.
--- NOTE | 2024-11-30 11:35 | W.PM.OPN ---
Operative Note Operative Note Date of Service: 11/30/24 Narrative: Procedure Description: EGD Indication: anemia Anesthesia: MAC FLEXIBLE TRANSORAL UPPER GASTROINTESTINAL ENDOSCOPY UPPER ENDOSCOPY Consent: Indications for the procedure and potential complications of bleeding, perforation, reaction to medications and missed diagnosis were discussed with the patient and informed consent was obtained. Instrument: Olympus GIF H 190 J mid size upper endoscope Monitoring: Vital signs and clinical assessment, continuous EKG monitoring, Pulse oximetry, Carbon Dioxide monitoring and blood pressure monitoring were done throughout the procedure. Procedure: The patient was placed in the left lateral decubitis position and pre-procedure medications were administered and a bite block was placed. The endoscope was inserted into the mouth and advanced under direct vision to the third part of duodenum. A careful inspection was made as the upper endoscope was withdrawn including a retroflexed examination of the proximal stomach; Findings and interventions are described below. Findings: Larynx:normal Esophagus: GE junction at 40 cm, diaphragm hiatus at 40 cm, x 1 variceal cord grade II but no red stroud, x 2 bands applied with collapse of the column. White patchy spots noted consistent with brooks noted. Stomach: Mosaic pattern consistent with portal hypertensive gastropathy with diffuse redness and erythema but no active bleeding. Grade 2 flap valve on retroflexed examination of the cardia. No gastric varices. Duodenum: Normal bulb and descending duodenum, no blood seen Intervention: Banding of varices Impression/Findings: esophageal varices, portal hypertensive gastropathy , possible alcoholic gastritis esophageal candidiasis PLAN: clears today then advance diet as tolerated carafate 1 g BID Pantoprazole 40 mg daily repeat EGD in 4 weeks compliance with medications add fluconazole for 3 weeks 100 mg daily check HIV test
[2024-11-30] MEDS: Thiamine HCL 100 MG in 0.9 % Sodium Chloride 100 ML 202 MG IV (12:08)
[2024-11-30] MEDS: Folic Acid 1 MG in 0.9 % Sodium Chloride 50 ML 100.4 MG IV (12:30)
[2024-11-30] MEDS: Magnesium Sulfate/H2O 2 GM/50 ML PIGGYBACK IV (12:36)
[2024-11-30 16:10] LABS: Appearance Urine Clear; Color Urine Yellow; Glucose Urine UA Negative (Negative); Leukocyte Esterase Urine Negative (Negative); Nitrite Urine Negative (Negative); Urine Blood Negative (Negative); Urine Ketones Negative (Negative); Urine Protein Negative (Neg-Trace)
[2024-11-30] MEDS: Lactulose 320 GM/480 ML SOLUTION 200 GM PR (17:06)
[2024-11-30] MEDS: Lactulose 20 GM/30 ML SOLUTION PO (22:42)
[2024-11-30] MEDS: PHENobarbitaL 30 MG, PHENobarbitaL 15 MG 45 MG PO (22:44)
[2024-11-30] MEDS: Sucralfate 1 GM TABLET PO (22:44)
[2024-11-30] MEDS: cefTRIAXone sodium 2 GM VIAL IVPUSH (22:48)
[2024-12-01] VITALS (7 sets, daily range): BP systolic 125–141; BP diastolic 58–69; PULSE 73–91; RESP 14–22; TEMP 36.1–37.6; O2SAT 91–96
[2024-12-01] MEDS: Octreotide Acetate 500 MCG in 0.9 % Sodium Chloride 500 ML 50.1 MCG IVCONT (01:27)
[2024-12-01] MEDS: Lactulose 20 GM/30 ML SOLUTION PO ×3 (06:03→21:00)
[2024-12-01] MEDS: Omeprazole 40 MG CAPSULE.DR PO (06:04)
[2024-12-01 09:12] LABS: Hematocrit 30.8 % (42.0-52.0); Hemoglobin 10.3 g/dl (14.0-18.0); Mean Corpuscular HGB Conc 33.4 g/dl (31.0-36.0); Mean Corpuscular Hemoglobin 32.2 pg (27.0-33.0); Mean Corpuscular Volume 96.3 fL (80.0-98.0); Mean Platelet Volume 10.8 fL (9.4-12.4); Red Cell Distribution Width 16.6 % (11.0-16.0); White Blood Count 5.8 X10*3/uL (4.8-10.8)
[2024-12-01 09:13] LABS: Platelet Count 40 X10*3/uL (160-400)
[2024-12-01 09:26] LABS: Anion Gap 10 (12-20); Blood Urea Nitrogen 7 mg/dL (9-16); Calcium 7.7 mg/dL (8.4-10.2); Carbon Dioxide 18 mmol/L (22-29); Chloride 113 mmol/L (96-108); Creatinine Clr Calc Pharmacy 107.5; Estimated Glomerular Filt Rate > 60; Glucose Random 112 mg/dL (60-115); Potassium 3.2 mmol/L (3.3-5.1); Sodium 138 mmol/L (135-145)
[2024-12-01] MEDS: metroNIDAZOLE/NS 500 MG/100 ML PIGGYBACK 100 MG IV ×3 (10:07→22:00)
[2024-12-01] MEDS: Sucralfate 1 GM TABLET PO ×2 (10:18→17:36)
[2024-12-01] MEDS: Folic Acid 1 MG TABLET PO (10:20)
[2024-12-01] MEDS: Magnesium Oxide 400 MG TABLET PO ×2 (10:20→17:37)
[2024-12-01] MEDS: 0.9 % Sodium Chloride Flush 3 ML SYRINGE IVFLUSH ×3 (10:20→21:01)
[2024-12-01] MEDS: Fluconazole 100 MG TABLET PO (10:20)
--- NOTE | 2024-12-01 10:21 | P.PNIM_ITS ---
Subjective Subjective Date of Service: 12/01/24 Interval History: seen and examined this morning follow up for nose bleed, etoh, gi bleeding pt lethargic unable to provide history, unable to obtain ROS Physical Exam 2 Vital Signs: Vital Signs: Last Vital Signs Temp 97.0 F 12/01/24 07:40 Pulse 81 12/01/24 07:40 Resp 20 12/01/24 07:40 BP 131/58 L 12/01/24 07:40 Pulse Ox 91 L 12/01/24 07:40 O2 Del Method Nasal Cannula 12/01/24 07:40 O2 Flow Rate 2 12/01/24 07:40 Oxygen Flow Rate 2 11/30/24 08:35 BMI result Body Mass Index 20.7 Appearing in no acute distress lung sounds are clear to auscultation heart regular rate rhythm, clear S1, S2 positive bowel sounds, abdomen is soft, nontender neuro patient is alert x3, no focal deficits Objective Data Active Medications Acetaminophen (Acetaminophen 325 Mg Tablet) 650 mg PO Q6H PRN PRN Reason: Pain, Mild 1-3,fever,headache Acetaminophen (Acetaminophen Supp 650 Mg Supp.Rect) 650 mg [place] Q6H PRN PRN Reason: Fever >100.4 Last Admin: 11/29/24 08:24 Dose: 650 mg Documented By: COOPEHadley Calcium Carbonate (Calcium Carbonate 750 Mg Tab.Chew) 750 mg PO Q4H PRN PRN Reason: Heartburn Ceftriaxone Sodium (Ceftriaxone Sodium 2 Gm Vial) 2 gm IVPUSH Q24H [facility] Last Admin: 11/30/24 22:48 Dose: 2 gm Documented By: YONI Fluconazole (Fluconazole 100 Mg Tablet) 100 mg PO DAILY [facility] Folic Acid (Folic Acid 1 Mg Tablet) 1 mg PO DAILY [facility] Octreotide Acetate 500 mcg/ (Sodium Chloride) 501 mls @ 50.1 mls/hr IVCONT .Q10H [facility] Last Admin: 12/01/24 01:27 Dose: 50 mcg/hr, 50.1 mls/hr Documented By: YONI Metronidazole (Flagyl) 500 mg in 100 mls @ 100 mls/hr IV Q8H [facility] Last Infusion: 11/30/24 23:57 Dose: Infused Documented By: YONI Lactulose (Lactulose 20 Gm/30 Ml Solution) 20 gm PO Q6H [facility] Last Admin: 12/01/24 06:03 Dose: 20 gm Documented By: YONI Magnesium Hydroxide (Milk Of Magnesia 30 Ml Oral.Susp) 30 ml PO DAILY PRN PRN Reason: Constipation Magnesium Oxide (Magnesium Oxide 400 Mg Tablet) 400 mg PO BIDPC [facility] Melatonin (Melatonin 3 Mg Tablet) 6 mg PO BEDTIME PRN PRN Reason: Insomnia Midodrine (Midodrine Hcl 5 Mg Tablet) 5 mg PO TID [facility] Naloxone HCl (Naloxone Hcl 0.4 Mg/Ml Vial) 0.04 mg IVPUSH Q5M PRN PRN Reason: Excessive sedation or RR < 8 Omeprazole (Omeprazole 40 Mg Capsule.Dr) 40 mg PO DAILY@0630 [facility] Last Admin: 12/01/24 06:04 Dose: 40 mg Documented By: YONI Ondansetron HCl (Ondansetron Hcl 4 Mg/2 Ml Vial) 4 mg IVPUSH Q8H PRN PRN Reason: Nausea and Vomiting Pharmacy Consult (Consult Rx Etoh Phenob Im/Po) 1 each MISCELLANE ONCE PRN; Protocol PRN Reason: Consult order Phenobarbital (Phenobarbital 15 Mg Tablet) 15 mg PO BID@0700,1900 [facility] Stop: 12/03/24 07:01 Phenobarbital (Phenobarbital 15 Mg Tablet) 15 mg PO DAILY@1900 [facility] Stop: 12/04/24 19:01 Sodium Chloride (0.9 % Sodium Chloride Flush 3 Ml Syringe) 3 ml IVFLUSH QSHIFT [facility] Last Admin: 11/30/24 22:57 Dose: 3 ml Documented By: YONI Sucralfate (Sucralfate 1 Gm Tablet) 1 gm PO BIDAC [facility] Last Admin: 11/30/24 22:44 Dose: 1 gm Documented By: YONI Thiamine HCl (Thiamine Hcl 100 Mg Tablet) 100 mg PO DAILY [facility] Labs 12/01/24 09:03 12/01/24 09:03 Labs: Laboratory Results - last 24 hr 11/29/24 11/30/24 12/01/24 03:39 15:30 09:03 MCV 96.3 MCH 32.2 MCHC 33.4 RDW 16.6 H Plt Count 40 L MPV 10.8 Absolute Nucleated RBC 0.000 Nucleated RBC % (auto) 0.0 Anion Gap 10 L Estim Creat Clear Calc 107.5 Estimated GFR > 60 Random Glucose 112 Calcium 7.7 L Urine Color Yellow Urine Appearance Clear Urine pH 7.0 Ur Specific [place] 1.020 Urine Protein Negative Urine Glucose (UA) Negative Urine Ketones Negative Urine Blood Negative Urine Nitrite Negative Ur Leukocyte Esterase Negative Blood Type B Positive Antibody Screen NEGATIVE Crossmatch (AHG) See Detail Microbiology Microbiology Results: Microbiology 11/29/24 03:39 Blood Culture - Preliminary Blood - Venous No growth after 48 hours. 11/29/24 03:39 Blood Culture - Preliminary Blood - Venous No growth after 48 hours. Assessment and Plan (1) Aspiration pneumonia: Status: Acute (2) Alcohol abuse: Status: Acute (3) Thrombocytopenia: Status: Acute (4) Epistaxis: Status: Acute Plan This is a 54-year-old male with pertinent history of alcohol use disorder with alcoholic cirrhosis, gastroesophageal reflux disease who presents to the emergency department for management of nosebleed and vomiting. coffee ground emesis upper GI source s/p IV Protonix, octreotide INR 1.6 s/p EGD showing esoph varicies, portal hypertensive gastropathy, possible alcoholic gastritis and esophageal candidiasis GI recommendations include Carafate 1 g b.i.d., Prilosec 40 mg daily, repeat EGD in 4 weeks, fluconazole 100 mg daily for 3 weeks, check HIV Sepsis due to aspiration pneumonia met sepsis criteria with fever, tachycardia, tachypnea lactic acid normal low platelets and elevated bili due to underlying liver dz/etoh use not severe sepsis continue IV abx ceftriaxone/flagyl blood cultures neg aspiration precautions Acute metabolic encephalopathy due to above and hepatic encehalopathy ammonia down to 70 Hypomagnesemia due to alcoholism Replete Epistaxis Controlled in the ER with cocaine hcl Alcohol use disorder Phenobarb protocol initiated in the ER. Monitor CIWA continue IV thiamine and folic acid Addiction Team when appropriate Pancytopenia due to splenomegaly in the setting of cirrhosis and alcoholism s/p 1 unit platelet , 3 unit PRBC Follow HH DVT prophylaxis: Mechanical attending Dr. Nguyen Full code Quality Stroke Does the patient have a stroke diagnosis?: No VTE Prior VTE?: No VTE Risk Level:: Medical - moderate - high VTE Device Contraindication: N/A - Device Ordered VTE Drug Contraindication: Treatment Not Indicated
[2024-12-01] MEDS: Thiamine HCL 100 MG TABLET PO (10:27)
--- NOTE | 2024-12-01 11:03 | HO.ADDICT_ITS ---
History of Present Illness Date of Service: 12/01/24 Chief Complaint: Dyspnea Reason for Consult: AUD Sources of Information: patient interviewed and chart reviewed HPI Narrative: Patient is a 54 year old male medically admitted with aspiration pneumonia and esphageal varices Consult requested as patient with current alcohol use disorder and hepatic encephalopathy Patient seen in room 474. He is awake, alert, pleasant and engaged in interview. He reports that he has been drinking daily for most of his life, and he is happy. Several times repeated, I wake up with a drink and fall asleep with a drink--or some iteration of that statement He states that he lives outside [place] the [place] on [address] Reports he has been to various lelves of care for AUD, but did not like that he had to pay to stay at some places, so he does not wish to return. When asked about any concerns of how alcohol may be impacting his health he said, well, I'm here , but unable to state what brought him in or why he continues to be here. Labs reviewed, ammonia level decreasing, but still elevated No nystagmus or tremor noted Appearing overall comfortable Past Psychiatric History: hx of 3 prior detox admissions for alcohol use. does not have outpatient psychiatric providers Pt reports hx of one SI attempt via overdose on pills at the age of 17. Review of Systems Review of Systems Yes Unobtainable due to mental status Diagnostics Vital Signs (24Hr): Vital Signs - 24 hr 11/30/24 11:42 11/30/24 11:52 11/30/24 12:07 Temperature 99.0 F 99.1 F 97.6 F Pulse Rate 76 75 81 Respiratory Rate 17 18 17 Blood Pressure 120/49 L 124/52 L 112/64 Pulse Oximetry 94 95 92 Oxygen Delivery Method Room Air Nasal Cannula Nasal Cannula Oxygen Flow Rate 1 1 11/30/24 15:08 11/30/24 15:34 11/30/24 15:49 Temperature 98.1 F 97.8 F 98.3 F Pulse Rate 90 90 78 Respiratory Rate 18 20 20 Blood Pressure 116/73 130/60 123/59 L Pulse Oximetry 96 Oxygen Delivery Method Nasal Cannula Oxygen Flow Rate 2 11/30/24 19:05 12/01/24 00:00 12/01/24 02:49 Temperature 99.1 F 98.7 F 99.3 F Pulse Rate 87 88 91 Respiratory Rate 18 18 18 Blood Pressure 129/60 141/69 H 125/60 Pulse Oximetry 92 96 92 Oxygen Delivery Method Nasal Cannula Nasal Cannula Nasal Cannula Oxygen Flow Rate 1 1 1 12/01/24 07:40 12/01/24 10:27 Temperature 97.0 F Pulse Rate 81 Respiratory Rate 20 Blood Pressure 131/58 L 137/65 Pulse Oximetry 91 L Oxygen Delivery Method Nasal Cannula Oxygen Flow Rate 2 BMI result Body Mass Index 20.7 Labs 12/01/24 09:03 12/01/24 09:03 Labs: Laboratory Results - last 48 hr 11/29/24 11/29/24 11/29/24 03:39 13:08 20:12 WBC RBC Hgb 8.0 L 9.4 L Hct 23.8 L 30.5 L D MCV MCH MCHC RDW Plt Count MPV Immature Gran % (Auto) Neut % (Auto) Lymph % (Auto) [place] % (Auto) Eos % (Auto) Baso % (Auto) Lymph # (Auto) [place] # (Auto) Eos # (Auto) Baso # (Auto) Abs Immat Gran (auto) Absolute Neuts (auto) Absolute Nucleated RBC Nucleated RBC % (auto) Sodium Potassium Chloride Carbon Dioxide Anion Gap BUN Creatinine Estim Creat Clear Calc Estimated GFR Random Glucose Calcium Magnesium Ammonia 124 H Urine Color Urine Appearance Urine pH Ur Specific Adamant Urine Protein Urine Glucose (UA) Urine Ketones Urine Blood Urine Nitrite Ur Leukocyte Esterase Blood Type B Positive Antibody Screen NEGATIVE Crossmatch ([facility]) See Detail 11/30/24 11/30/24 11/30/24 03:13 05:47 15:30 WBC 4.4 L RBC 2.76 L Hgb 8.5 L 8.9 L Hct 25.5 L 26.6 L MCV 96.4 MCH 32.2 MCHC 33.5 RDW 17.5 H Plt Count 37 L MPV 12.5 H Immature Gran % (Auto) 0.5 H Neut % (Auto) 74.1 H Lymph % (Auto) 15.3 L [place] % (Auto) 6.5 Eos % (Auto) 3.4 Baso % (Auto) 0.2 Lymph # (Auto) 0.7 L [place] # (Auto) 0.3 Eos # (Auto) 0.2 Baso # (Auto) 0.0 Abs Immat Gran (auto) 0.02 Absolute Neuts (auto) 3.3 Absolute Nucleated RBC 0.000 Nucleated RBC % (auto) 0.0 Sodium 141 Potassium 3.2 L Chloride 117 H Carbon Dioxide 17 L Anion Gap 10 L BUN 12 Creatinine 0.61 Estim Creat Clear Calc 112.8 Estimated GFR > 60 Random Glucose 119 H Calcium 7.6 L D Magnesium 1.6 Ammonia 70 H Urine Color Yellow Urine Appearance Clear Urine pH 7.0 Ur Specific Adamant 1.020 Urine Protein Negative Urine Glucose (UA) Negative Urine Ketones Negative Urine Blood Negative Urine Nitrite Negative Ur Leukocyte Esterase Negative Blood Type Antibody Screen Crossmatch ([facility]) 12/01/24 09:03 WBC 5.8 RBC 3.20 L Hgb 10.3 L Hct 30.8 L MCV 96.3 MCH 32.2 MCHC 33.4 RDW 16.6 H Plt Count 40 L MPV 10.8 Immature Gran % (Auto) Neut % (Auto) Lymph % (Auto) [place] % (Auto) Eos % (Auto) Baso % (Auto) Lymph # (Auto) [place] # (Auto) Eos # (Auto) Baso # (Auto) Abs Immat Gran (auto) Absolute Neuts (auto) Absolute Nucleated RBC 0.000 Nucleated RBC % (auto) 0.0 Sodium 138 Potassium 3.2 L Chloride 113 H Carbon Dioxide 18 L Anion Gap 10 L BUN 7 L Creatinine 0.64 Estim Creat Clear Calc 107.5 Estimated GFR > 60 Random Glucose 112 Calcium 7.7 L Magnesium Ammonia Urine Color Urine Appearance Urine pH Ur Specific Adamant Urine Protein Urine Glucose (UA) Urine Ketones Urine Blood Urine Nitrite Ur Leukocyte Esterase Blood Type Antibody Screen Crossmatch ([facility]) Mental Status Exam Mental Status Exam Patient Orientation: Person and Place Level of Consciousness: Awake and Alert Patient Behavior: Talkative and Cooperative Mood Description: Calm Affect Description: Calm Medications Medications Current Medications Acetaminophen (Acetaminophen 325 Mg Tablet) 650 mg PO Q6H PRN PRN Reason: Pain, Mild 1-3,fever,headache Acetaminophen (Acetaminophen Supp 650 Mg Supp.Rect) 650 mg AR Q6H PRN PRN Reason: Fever >100.4 Last Admin: 11/29/24 08:24 Dose: 650 mg Calcium Carbonate (Calcium Carbonate 750 Mg Tab.Chew) 750 mg PO Q4H PRN PRN Reason: Heartburn Ceftriaxone Sodium (Ceftriaxone Sodium 2 Gm Vial) 2 gm IVPUSH Q24H [facility] Last Admin: 11/30/24 22:48 Dose: 2 gm Fluconazole (Fluconazole 100 Mg Tablet) 100 mg PO DAILY [facility] Last Admin: 12/01/24 10:20 Dose: 100 mg Folic Acid (Folic Acid 1 Mg Tablet) 1 mg PO DAILY [facility] Last Admin: 12/01/24 10:20 Dose: 1 mg Metronidazole (Flagyl) 500 mg in 100 mls @ 100 mls/hr IV Q8H [facility] Last Admin: 12/01/24 10:07 Dose: 100 mls/hr Lactulose (Lactulose 20 Gm/30 Ml Solution) 20 gm PO Q6H [facility] Last Admin: 12/01/24 10:18 Dose: 20 gm Magnesium Hydroxide (Milk Of Magnesia 30 Ml Oral.Susp) 30 ml PO DAILY PRN PRN Reason: Constipation Magnesium Oxide (Magnesium Oxide 400 Mg Tablet) 400 mg PO BIDPC [facility] Last Admin: 12/01/24 10:20 Dose: 400 mg Melatonin (Melatonin 3 Mg Tablet) 6 mg PO BEDTIME PRN PRN Reason: Insomnia Midodrine (Midodrine Hcl 5 Mg Tablet) 5 mg PO TID [facility] Last Admin: 12/01/24 10:27 Dose: Not Given Naloxone HCl (Naloxone Hcl 0.4 Mg/Ml Vial) 0.04 mg IVPUSH Q5M PRN PRN Reason: Excessive sedation or RR < 8 Omeprazole (Omeprazole 40 Mg Capsule.Dr) 40 mg PO DAILY@0630 [facility] Last Admin: 12/01/24 06:04 Dose: 40 mg Ondansetron HCl (Ondansetron Hcl 4 Mg/2 Ml Vial) 4 mg IVPUSH Q8H PRN PRN Reason: Nausea and Vomiting Pharmacy Consult (Consult Rx Etoh Phenob Im/Po) 1 each MISCELLANE ONCE PRN; Protocol PRN Reason: Consult order Phenobarbital (Phenobarbital 15 Mg Tablet) 15 mg PO BID@0700,1900 [facility] Stop: 12/03/24 07:01 Phenobarbital (Phenobarbital 15 Mg Tablet) 15 mg PO DAILY@1900 [facility] Stop: 12/04/24 19:01 Sodium Chloride (0.9 % Sodium Chloride Flush 3 Ml Syringe) 3 ml IVFLUSH QSHIFT [facility] Last Admin: 12/01/24 10:20 Dose: 3 ml Sucralfate (Sucralfate 1 Gm Tablet) 1 gm PO BIDAC [facility] Last Admin: 01/19/25 10:18 Dose: 1 gm Thiamine HCl (Thiamine Hcl 100 Mg Tablet) 100 mg PO DAILY [facility] Last Admin: 12/01/24 10:27 Dose: 100 mg Allergies Allergies Allergy/AdvReac Type Severity Reaction Status Date / Time No Known Allergies Allergy Verified 11/28/24 16:16 [No Known Allergies*] Assessment & Plan Assessment & Plan (1) Alcohol use disorder: Status: Acute Code(s): F10.90 - Alcohol use, unspecified, uncomplicated Assessment and Plan: * patient still with some confusion, likely d/t elevated ammonia and chronic AUD. Continue thiamine and lactulose * attempted to discuss risk reduction strategies with alcohol, patient kindly declined stating I drink when I wake up and drink to fall asleep. I'm okay * caretaker to check in closer to discharge, once mental status has improved to reassess interest in referrals or resources for AUD Total time managing care of this patient today __25__ minutes. PMFSH Past Medical History Medical History Alcoholic liver disease Aspiration pneumonia Thrombocytopenia Malnutrition CHF (congestive heart failure) Anemia Hypomagnesemia Cirrhosis Thrombocytopenia Acute on chronic anemia CHF (congestive heart failure) Anemia Pneumonia Alcohol abuse Alcohol withdrawal syndrome Surgical History Surgical History No history of previous surgery Social History Social History Household Members: Other Household Members Other:: pt homeless Housing: Homeless Housing Other:: homeless Do you presently have visiting nurse or other home services: No Unable to assess alcohol history related to: Refusing to respond Alcohol intake: current Alcohol intake frequency: 3 or more drinks per day Alcohol type: hard liquor Comment: 1 assist to bathroom Patient Tobacco Use Status: Former Tobacco user Tobacco use type: Cigarette Second Hand Smoke Exposure: No Advance Directives Date on File: 07/13/23 service: No
--- NOTE | 2024-12-01 11:20 | HO.POSTANES ---
Post Anesthesia Evaluation Post Anesthesia Evaluation Date of Service: 12/01/24 Vital Signs: Vital Signs Temp Pulse Resp BP Pulse Ox O2 Del Method O2 Flow Rate 12/01/24 10:27 137/65 12/01/24 07:40 97.0 F 81 20 131/58 L 91 L Nasal Cannula 2 12/01/24 02:49 99.3 F 91 18 125/60 92 Nasal Cannula 1 12/01/24 00:00 98.7 F 88 18 141/69 H 96 Nasal Cannula 1 Anesthesia: TIVA Mental Status: Sedated (lethargic, the same as pre-op) Pain Control: Satisfactory Nausea/Vomiting: None Hydration: Adequate Anesthesia-Related Issues: No Anes. Related Issues
[2024-12-01] MEDS: Potassium Chloride ER 20 MEQ TAB.ER.PRT 40 MEQ PO (12:10)
[2024-12-01] MEDS: PHENobarbitaL 15 MG TABLET PO (18:02)
[2024-12-01] MEDS: cefTRIAXone sodium 2 GM VIAL IVPUSH (21:00)
[2024-12-02] VITALS (10 sets, daily range): BP systolic 105–138; BP diastolic 58–66; PULSE 70–84; RESP 14–19; TEMP 36.7–38.3; O2SAT 91–94
[2024-12-02] MEDS: Acetaminophen 325 MG TABLET 650 MG PO (01:21)
[2024-12-02] MEDS: Albumin Human 25 % 100 ML 133.33 ML IV (02:58)
[2024-12-02] MEDS: Lactulose 20 GM/30 ML SOLUTION PO ×4 (03:01→20:15)
[2024-12-02 03:05] LABS: Anion Gap 7 (12-20); Blood Urea Nitrogen 4 mg/dL (9-16); Calcium 7.3 mg/dL (8.4-10.2); Carbon Dioxide 18 mmol/L (22-29); Chloride 112 mmol/L (96-108); Creatinine Clr Calc Pharmacy 109.2; Estimated Glomerular Filt Rate > 60; Glucose Random 115 mg/dL (60-115); Sodium 134 mmol/L (135-145)
[2024-12-02 03:07] LABS: Lactic Acid 1.9 mmol/L (0.5-2.0)
[2024-12-02] MEDS: Omeprazole 40 MG CAPSULE.DR PO (05:33)
[2024-12-02] MEDS: metroNIDAZOLE/NS 500 MG/100 ML PIGGYBACK 100 MG IV (06:00)
[2024-12-02] MEDS: Folic Acid 1 MG TABLET PO (07:39)
[2024-12-02] MEDS: Thiamine HCL 100 MG TABLET PO (07:39)
[2024-12-02] MEDS: Magnesium Oxide 400 MG TABLET PO ×2 (07:40→17:49)
[2024-12-02] MEDS: Sucralfate 1 GM TABLET PO ×2 (07:40→15:57)
[2024-12-02] MEDS: PHENobarbitaL 15 MG TABLET PO ×2 (07:40→18:38)
[2024-12-02] MEDS: Fluconazole 100 MG TABLET PO (07:40)
[2024-12-02] MEDS: 0.9 % Sodium Chloride Flush 3 ML SYRINGE IVFLUSH ×2 (07:52→20:15)
[2024-12-02 08:16] LABS: HIV AB/AG Nonreactive (Nonreactive); HIV Num 1 0.05 S/CO (0.00-0.99)
[2024-12-02] MEDS: Midodrine HCl 5 MG TABLET PO ×2 (08:23→14:40)
[2024-12-02 08:34] LABS: Ammonia 41 umol/L (13-55)
--- NOTE | 2024-12-02 09:23 | MHC.CM.PN ---
EMR REVIEWED, PT W/COFFEE GROUND EMESIS/ASP PNA/+BC'S/ETOH, PT REMAINS ON IV ABX/ANTIPROTAZOAN, PER HOSPITALIST ANTIC PT WILL NEED P.T. EVAL HOWEVER PT DOES TYPICALLY DECLINE STR, BC'S PENDING, CM WILL CON TO FOLLOW DC NEEDS.
--- NOTE | 2024-12-02 09:52 | P.PNGI_ITS ---
Subjective Subjective Date of Service: 12/02/24 Interval History: stable, alert and awake no epistaixs, no melena no abdominal pain eating ok Critical Care Time (minutes): 0 Physical Exam 2 Vital Signs: Vital Signs: Last Vital Signs Temp 98.1 F 12/02/24 07:39 Pulse 70 12/02/24 07:39 Resp 16 12/02/24 07:39 BP 138/61 12/02/24 07:39 Pulse Ox 91 L 12/02/24 07:39 O2 Del Method Room Air 12/02/24 07:39 O2 Flow Rate 2 12/01/24 12:00 Oxygen Flow Rate 2 12/02/24 07:29 BMI result Body Mass Index 20.7 EXAM: GENERAL: The patient is dishevelled VITAL SIGNS:see workflow HEENT: Nonicteric sclerae, PERRLA, EOMI. Oropharynx clear. Moist mucous membranes. Conjunctivae appear well perfused. No thyroid mass. CHEST: Chest wall is nontender. HEART: Regular rate and rhythm without murmurs. LUNGS: Clear to auscultation bilaterally. ABDOMEN: Soft, positive bowel sounds, nontender, no organomegaly.no flank tenderness SKIN: No rash, no excessive bruising, petechiae, or purpura. NEUROLOGIC: Cranial nerves II-XII intact without motor/sensory deficit. Psych: normal affect Objective Data Labs 12/01/24 09:03 12/02/24 02:42 Labs: Laboratory Results - last 24 hr 12/01/24 12/02/24 12/02/24 07:08 02:42 08:16 Hold Purple Top SEE NOTE Sodium 134 L Potassium 3.0 L Chloride 112 H Carbon Dioxide 18 L Anion Gap 7 L BUN 4 L Creatinine 0.63 Estim Creat Clear Calc 109.2 Estimated GFR > 60 Random Glucose 115 Lactic Acid 1.9 Calcium 7.3 L Ammonia 41 HIV 1&2 Ab/P24 Ag 4thGn Nonreactive Microbiology Microbiology Results: Microbiology 11/29/24 03:39 Blood - Venous Blood Culture - Preliminary Prelim: GPR Gram Stain only 11/29/24 03:39 Blood - Venous Blood Culture - Preliminary No growth after 48 hours. Procedures Date of Service Date of Service: 12/02/24 Progress Note: A&P Assessment and plan (1) Esophageal varices: Status: Acute Plan 1/ anemia, possibly from epistaixs, but did have variices without red stroud or high risk stigmata, he has been stable PLAN: /1 - cont with PPI, carafate 2/ low dose carvedilol if BP allows 3/ repeat EGD in 4 weeks or so Time Spent With Patient Time: Total time managing care of this patient today ____ minutes. Quality Stroke Does the patient have a stroke diagnosis?: No VTE Prior VTE?: No VTE Risk Level:: Medical - moderate - high VTE Device Contraindication: N/A - Device Ordered VTE Drug Contraindication: Treatment Not Indicated
--- NOTE | 2024-12-02 14:14 | P.PNIM_ITS ---
Subjective Subjective Date of Service: 12/02/24 Interval History: seen and examined this morning follow up for nose bleed, etoh, gi bleeding pt lethargic unable to provide history, unable to obtain ROS Physical Exam 2 Vital Signs: Vital Signs: Last Vital Signs Temp 98.1 F 12/02/24 11:11 Pulse 74 12/02/24 11:11 Resp 14 12/02/24 11:11 BP 137/62 12/02/24 11:11 Pulse Ox 92 12/02/24 11:11 O2 Del Method Room Air 12/02/24 11:11 O2 Flow Rate 2 12/01/24 12:00 Oxygen Flow Rate 2 12/02/24 07:29 BMI result Body Mass Index 20.7 Appearing in no acute distress lung sounds are clear to auscultation heart regular rate rhythm, clear S1, S2 positive bowel sounds, abdomen is soft, nontender neuro patient is alert x3, no focal deficits Objective Data Active Medications Acetaminophen (Acetaminophen 325 Mg Tablet) 650 mg PO Q6H PRN PRN Reason: Pain, Mild 1-3,fever,headache Last Admin: 12/02/24 01:21 Dose: 650 mg Documented By: OLEG Acetaminophen (Acetaminophen Supp 650 Mg Supp.Rect) 650 mg [place] Q6H PRN PRN Reason: Fever >100.4 Last Admin: 11/29/24 08:24 Dose: 650 mg Documented By: FRANK Calcium Carbonate (Calcium Carbonate 750 Mg Tab.Chew) 750 mg PO Q4H PRN PRN Reason: Heartburn Ceftriaxone Sodium (Ceftriaxone Sodium 2 Gm Vial) 2 gm IVPUSH Q24H [facility] Last Admin: 12/01/24 21:00 Dose: 2 gm Documented By: OLEG Fluconazole (Fluconazole 100 Mg Tablet) 100 mg PO DAILY [facility] Last Admin: 12/02/24 07:40 Dose: 100 mg Documented By: MACIEJ Folic Acid (Folic Acid 1 Mg Tablet) 1 mg PO DAILY [facility] Last Admin: 12/02/24 07:39 Dose: 1 mg Documented By: MACIEJ Lactulose (Lactulose 20 Gm/30 Ml Solution) 20 gm PO Q6H [facility] Last Admin: 12/02/24 10:34 Dose: 20 gm Documented By: MACIEJ Magnesium Hydroxide (Milk Of Magnesia 30 Ml Oral.Susp) 30 ml PO DAILY PRN PRN Reason: Constipation Magnesium Oxide (Magnesium Oxide 400 Mg Tablet) 400 mg PO BIDPC [facility] Last Admin: 12/02/24 07:40 Dose: 400 mg Documented By: MACIEJ Melatonin (Melatonin 3 Mg Tablet) 6 mg PO BEDTIME PRN PRN Reason: Insomnia Metronidazole (Metronidazole 500 Mg Tablet) 500 mg PO Q8H [facility] Midodrine (Midodrine Hcl 5 Mg Tablet) 5 mg PO TID [facility] Last Admin: 12/02/24 08:23 Dose: 5 mg Documented By: MACIEJ Naloxone HCl (Naloxone Hcl 0.4 Mg/Ml Vial) 0.04 mg IVPUSH Q5M PRN PRN Reason: Excessive sedation or RR < 8 Omeprazole (Omeprazole 40 Mg Capsule.Dr) 40 mg PO DAILY@0630 [facility] Last Admin: 12/02/24 05:33 Dose: 40 mg Documented By: OLEG Ondansetron HCl (Ondansetron Hcl 4 Mg/2 Ml Vial) 4 mg IVPUSH Q8H PRN PRN Reason: Nausea and Vomiting Pharmacy Consult (Consult Rx Etoh Phenob Im/Po) 1 each MISCELLANE ONCE PRN; Protocol PRN Reason: Consult order Phenobarbital (Phenobarbital 15 Mg Tablet) 15 mg PO BID@0700,1900 [facility] Stop: 12/03/24 07:01 Last Admin: 12/02/24 07:40 Dose: 15 mg Documented By: MACIEJ Phenobarbital (Phenobarbital 15 Mg Tablet) 15 mg PO DAILY@1900 [facility] Stop: 12/04/24 19:01 Potassium Chloride (Potassium Chloride Er 20 Meq Tab.Er.Prt) 40 meq PO BID [facility] Sodium Chloride (0.9 % Sodium Chloride Flush 3 Ml Syringe) 3 ml IVFLUSH QSHIFT [facility] Last Admin: 12/02/24 07:52 Dose: 3 ml Documented By: MACIEJ Sucralfate (Sucralfate 1 Gm Tablet) 1 gm PO BIDAC [facility] Last Admin: 12/02/24 07:40 Dose: 1 gm Documented By: MACIEJ Thiamine HCl (Thiamine Hcl 100 Mg Tablet) 100 mg PO DAILY [facility] Last Admin: 12/02/24 07:39 Dose: 100 mg Documented By: MACIEJ Labs 12/01/24 09:03 12/02/24 02:42 Labs: Laboratory Results - last 24 hr 12/01/24 12/02/24 12/02/24 07:08 02:42 08:16 Hold Purple Top SEE NOTE Anion Gap 7 L Estim Creat Clear Calc 109.2 Estimated GFR > 60 Random Glucose 115 Lactic Acid 1.9 Calcium 7.3 L Ammonia 41 HIV 1&2 Ab/P24 Ag 4thGn Nonreactive Microbiology Microbiology Results: Microbiology 11/29/24 03:39 Blood Culture - Preliminary Blood - Venous Prelim: GPR Gram Stain only Assessment and Plan (1) Aspiration pneumonia: Status: Acute Plan This is a 54-year-old male with pertinent history of alcohol use disorder with alcoholic cirrhosis, gastroesophageal reflux disease who presents to the emergency department for management of nosebleed and vomiting. Coffee ground emesis. Resolved upper GI source s/p IV Protonix, octreotide INR 1.6 s/p EGD showing esoph varicies, portal hypertensive gastropathy, possible alcoholic gastritis and esophageal candidiasis GI recommendations include Carafate 1 g b.i.d., Prilosec 40 mg daily, repeat EGD in 4 weeks, fluconazole 100 mg daily for 3 weeks, HIV negative Sepsis due to aspiration pneumonia. Sepsis resolved met sepsis criteria with fever, tachycardia, tachypnea lactic acid normal low platelets and elevated bili due to underlying liver dz/etoh use not severe sepsis continue IV abx ceftriaxone/flagyl blood cultures neg aspiration precautions Acute metabolic encephalopathy due to above and hepatic encehalopathy ammonia down to 70 Hypomagnesemia due to alcoholism Repleted Epistaxis Controlled in the ER with cocaine hcl Alcohol use disorder Phenobarb protocol initiated in the ER. Monitor CIWA continue IV thiamine and folic acid Addiction Team when appropriate Pancytopenia due to splenomegaly in the setting of cirrhosis and alcoholism s/p 1 unit platelet , 3 unit PRBC Follow HH DVT prophylaxis: Mechanical attending Dr. Hdez Full code Quality Stroke Does the patient have a stroke diagnosis?: No VTE Prior VTE?: No VTE Risk Level:: Medical - moderate - high VTE Device Contraindication: N/A - Device Ordered VTE Drug Contraindication: Treatment Not Indicated
[2024-12-02] MEDS: Potassium Chloride ER 20 MEQ TAB.ER.PRT 40 MEQ PO ×2 (14:39→20:15)
[2024-12-02] MEDS: metroNIDAZOLE 500 MG TABLET PO ×2 (14:40→22:02)
--- NOTE | 2024-12-02 16:18 | MHC.SLORD ---
Speech Language Pathology Order Status: Pt sleeping at time of ST visit, had blanket over his head while reclining in chair. Pt is currently on clear liquid diet, PHARMACIST CRITICAL CARE to formally evaluate when pt able to remain awake.
[2024-12-02] MEDS: cefTRIAXone sodium 2 GM VIAL IVPUSH (20:15)
[2024-12-03] VITALS (7 sets, daily range): BP systolic 105–131; BP diastolic 51–67; PULSE 70–86; RESP 16–23; TEMP 37–37.4; O2SAT 91–95
[2024-12-03] MEDS: Omeprazole 40 MG CAPSULE.DR PO (05:08)
[2024-12-03] MEDS: metroNIDAZOLE 500 MG TABLET PO ×3 (08:17→23:14)
[2024-12-03] MEDS: Magnesium Oxide 400 MG TABLET PO ×2 (08:17→17:18)
[2024-12-03] MEDS: Thiamine HCL 100 MG TABLET PO (08:17)
[2024-12-03] MEDS: Sucralfate 1 GM TABLET PO ×2 (08:17→17:18)
[2024-12-03] MEDS: Fluconazole 100 MG TABLET PO (08:17)
[2024-12-03] MEDS: Midodrine HCl 5 MG TABLET PO ×2 (08:17→15:38)
[2024-12-03] MEDS: PHENobarbitaL 15 MG TABLET PO ×2 (08:17→19:01)
[2024-12-03] MEDS: Folic Acid 1 MG TABLET PO (08:17)
[2024-12-03] MEDS: Potassium Chloride ER 20 MEQ TAB.ER.PRT 40 MEQ PO ×2 (08:18→20:23)
[2024-12-03] MEDS: 0.9 % Sodium Chloride Flush 3 ML SYRINGE IVFLUSH ×3 (08:22→20:25)
[2024-12-03 09:46] LABS: Anion Gap 8 (12-20); Blood Urea Nitrogen 4 mg/dL (9-16); Calcium 7.9 mg/dL (8.4-10.2); Carbon Dioxide 19 mmol/L (22-29); Chloride 112 mmol/L (96-108); Creatinine Clr Calc Pharmacy 102.7; Estimated Glomerular Filt Rate > 60; Glucose Random 105 mg/dL (60-115); Potassium 3.6 mmol/L (3.3-5.1); Sodium 135 mmol/L (135-145)
--- NOTE | 2024-12-03 11:36 | MHC.SL.SWA ---
Speech Pathologist Impression: WFL Risk of Aspiration Due to: History of Pneumonia Dysphasia Diet Status: No Change Liquid Consistency and Strategies for Safe Swallow: Liquid Intake Recommendation: Thin Solid Food Consistency: Dietary Recommendations: Regular Oral Medication Intake: Whole with Liquid Please contact the pharmacy regarding appropriate crushable or liquid drug formulations that are available whenever modified delivery is recommended. Compensatory Strategies and Precautions to be Taken for Safe Swallow: Sitting Upright (90 deg) Small Bites and Sips Alternate Liquids/Solids Rate of Ingestion Change Supervision While Eating and Drinking for Safe Swallow: None Needed Recommendation for Speech: NA:Typical Evaluation Comment: Swallow deemed WFL in the oral and pharyngeal phases. Further ST intervention is not warranted at this time. Please re-refer with any changes or further concern. Frequency/Duration: Date Range for Service Req: Timeline to reassess: Light Cleaner Clinican/Clinical Fellow: No Supervisory Statement: I have reviewed and agree with the student/clinical fellow's documentation: N/A Speech Language Pathologist: Suha Marcos M.A., CCC-SYSTEMS PROTECTION TECHNICIAN
--- NOTE | 2024-12-03 12:36 | P.PNIM_ITS ---
Subjective Subjective Date of Service: 12/03/24 Interval History: seen and examined this morning follow up for nose bleed, etoh, gi bleeding awake and alert Physical Exam 2 Vital Signs: Vital Signs: Last Vital Signs Temp 98.9 F 12/03/24 11:41 Pulse 78 12/03/24 11:41 Resp 20 12/03/24 11:41 BP 109/67 12/03/24 11:41 Pulse Ox 91 L 12/03/24 11:41 O2 Del Method Room Air 12/03/24 11:41 O2 Flow Rate 2 12/01/24 12:00 Oxygen Flow Rate 2 12/02/24 07:29 BMI result Body Mass Index 20.7 Appearing in no acute distress lung sounds are clear to auscultation heart regular rate rhythm, clear S1, S2 positive bowel sounds, abdomen is soft, nontender neuro patient is alert x3, no focal deficits Objective Data Active Medications Acetaminophen (Acetaminophen 325 Mg Tablet) 650 mg PO Q6H PRN PRN Reason: Pain, Mild 1-3,fever,headache Last Admin: 12/02/24 01:21 Dose: 650 mg Documented By: OLEG Acetaminophen (Acetaminophen Supp 650 Mg Supp.Rect) 650 mg WA Q6H PRN PRN Reason: Fever >100.4 Last Admin: 11/29/24 08:24 Dose: 650 mg Documented By: ANNAOPEHadley Calcium Carbonate (Calcium Carbonate 750 Mg Tab.Chew) 750 mg PO Q4H PRN PRN Reason: Heartburn Ceftriaxone Sodium (Ceftriaxone Sodium 2 Gm Vial) 2 gm IVPUSH Q24H [facility] Last Admin: 12/02/24 20:15 Dose: 2 gm Documented By: OLEG Fluconazole (Fluconazole 100 Mg Tablet) 100 mg PO DAILY [facility] Last Admin: 12/03/24 08:17 Dose: 100 mg Documented By: KSENIA Folic Acid (Folic Acid 1 Mg Tablet) 1 mg PO DAILY [facility] Last Admin: 12/03/24 08:17 Dose: 1 mg Documented By: KSENIA Lactulose (Lactulose 20 Gm/30 Ml Solution) 20 gm PO Q6H [facility] Last Admin: 12/03/24 10:49 Dose: Not Given Documented By: KSENIA Non-Admin Reason: Patient Condition Contraindication Magnesium Hydroxide (Milk Of Magnesia 30 Ml Oral.Susp) 30 ml PO DAILY PRN PRN Reason: Constipation Magnesium Oxide (Magnesium Oxide 400 Mg Tablet) 400 mg PO BIDPC [facility] Last Admin: 12/03/24 08:17 Dose: 400 mg Documented By: KSENIA Melatonin (Melatonin 3 Mg Tablet) 6 mg PO BEDTIME PRN PRN Reason: Insomnia Metronidazole (Metronidazole 500 Mg Tablet) 500 mg PO Q8H [facility] Last Admin: 12/03/24 08:17 Dose: 500 mg Documented By: KSENIA Midodrine (Midodrine Hcl 5 Mg Tablet) 5 mg PO TID [facility] Last Admin: 12/03/24 08:17 Dose: 5 mg Documented By: KSENIA Naloxone HCl (Naloxone Hcl 0.4 Mg/Ml Vial) 0.04 mg IVPUSH Q5M PRN PRN Reason: Excessive sedation or RR < 8 Omeprazole (Omeprazole 40 Mg Capsule.Dr) 40 mg PO DAILY@0630 [facility] Last Admin: 12/03/24 05:08 Dose: 40 mg Documented By: OLEG Ondansetron HCl (Ondansetron Hcl 4 Mg/2 Ml Vial) 4 mg IVPUSH Q8H PRN PRN Reason: Nausea and Vomiting Pharmacy Consult (Consult Rx Etoh Phenob Im/Po) 1 each MISCELLANE ONCE PRN; Protocol PRN Reason: Consult order Phenobarbital (Phenobarbital 15 Mg Tablet) 15 mg PO DAILY@1900 [facility] Stop: 12/04/24 19:01 Potassium Chloride (Potassium Chloride Er 20 Meq Tab.Er.Prt) 40 meq PO BID [facility] Last Admin: 12/03/24 08:18 Dose: 40 meq Documented By: KSENIA Sodium Chloride (0.9 % Sodium Chloride Flush 3 Ml Syringe) 3 ml IVFLUSH QSHIFT [facility] Last Admin: 12/03/24 08:22 Dose: 3 ml Documented By: KSENIA Sucralfate (Sucralfate 1 Gm Tablet) 1 gm PO BIDAC [facility] Last Admin: 12/03/24 08:17 Dose: 1 gm Documented By: KSENIA Thiamine HCl (Thiamine Hcl 100 Mg Tablet) 100 mg PO DAILY [facility] Last Admin: 12/03/24 08:17 Dose: 100 mg Documented By: KSENIA Labs 12/01/24 09:03 12/03/24 09:26 Labs: Laboratory Results - last 24 hr 01/21/25 09:26 Hold Purple Top SEE NOTE Anion Gap 8 L Estim Creat Clear Calc 102.7 Estimated GFR > 60 Random Glucose 105 Calcium 7.9 L D Microbiology Microbiology Results: Microbiology 12/02/24 02:42 Blood Culture - Preliminary Blood - Venous No growth after 24 hours. 12/02/24 02:42 Blood Culture - Preliminary Blood - Venous No growth after 24 hours. 11/29/24 03:39 Blood Culture - Preliminary Blood - Venous Prelim: GPR Gram Stain only Assessment and Plan (1) Aspiration pneumonia: Status: Acute Plan This is a 54-year-old male with pertinent history of alcohol use disorder with alcoholic cirrhosis, gastroesophageal reflux disease who presents to the emergency department for management of nosebleed and vomiting. Coffee ground emesis. Resolved upper GI source s/p IV Protonix, octreotide INR 1.6 s/p EGD showing esoph varicies, portal hypertensive gastropathy, possible alcoholic gastritis and esophageal candidiasis GI recommendations include Carafate 1 g b.i.d., Prilosec 40 mg daily, repeat EGD in 4 weeks, fluconazole 100 mg daily for 3 weeks, HIV negative Sepsis due to aspiration pneumonia. Sepsis resolved met sepsis criteria with fever, tachycardia, tachypnea lactic acid normal low platelets and elevated bili due to underlying liver dz/etoh use not severe sepsis continue IV abx ceftriaxone/flagyl blood cultures neg aspiration precautions Acute metabolic encephalopathy. Resolved due to above and hepatic encehalopathy ammonia down to 70 Hypomagnesemia due to alcoholism Repleted Epistaxis Controlled in the ER with cocaine hcl Alcohol use disorder Phenobarb protocol initiated in the ER. Monitor CIWA continue IV thiamine and folic acid Addiction Team when appropriate Pancytopenia due to splenomegaly in the setting of cirrhosis and alcoholism s/p 1 unit platelet , 3 unit PRBC Follow HH DVT prophylaxis: Mechanical attending Dr. Hdez Full code Quality Stroke Does the patient have a stroke diagnosis?: No VTE Prior VTE?: No VTE Risk Level:: Medical - moderate - high VTE Device Contraindication: N/A - Device Ordered VTE Drug Contraindication: Treatment Not Indicated
--- NOTE | 2024-12-03 14:32 | P.PNGI_ITS ---
Subjective Subjective Date of Service: 12/03/24 Interval History: He feels well no abdo pain eating food passing stools, he denies rectal bleeding, thinsk stools are darker -HGb stable so far Critical Care Time (minutes): 0 Physical Exam 2 Vital Signs: Vital Signs: Last Vital Signs Temp 98.9 F 12/03/24 11:41 Pulse 78 12/03/24 11:41 Resp 20 12/03/24 11:41 BP 109/67 12/03/24 11:41 Pulse Ox 91 L 12/03/24 11:41 O2 Del Method Room Air 12/03/24 11:41 O2 Flow Rate 2 12/01/24 12:00 Oxygen Flow Rate 2 12/02/24 07:29 BMI result Body Mass Index 20.7 EXAM: GENERAL: The patient is mildly tremulous, VITAL SIGNS:see workflow HEENT: Nonicteric sclerae, PERRLA, EOMI. Oropharynx clear. Moist mucous membranes. Conjunctivae appear well perfused. No thyroid mass. CHEST: Chest wall is nontender. HEART: Regular rate and rhythm without murmurs. LUNGS: Clear to auscultation bilaterally. ABDOMEN: Soft, positive bowel sounds, nontender, no organomegaly.no flank tenderness SKIN: No rash, no excessive bruising, petechiae, or purpura. NEUROLOGIC: Cranial nerves II-XII intact without motor/sensory deficit. Psych: normal affect Objective Data Labs 12/01/24 09:03 12/03/24 09:26 Labs: Laboratory Results - last 24 hr 12/03/24 09:26 Hold Purple Top SEE NOTE Sodium 135 Potassium 3.6 Chloride 112 H Carbon Dioxide 19 L Anion Gap 8 L BUN 4 L Creatinine 0.67 Estim Creat Clear Calc 102.7 Estimated GFR > 60 Random Glucose 105 Calcium 7.9 L D Microbiology Microbiology Results: Microbiology 11/29/24 03:39 Blood - Venous Blood Culture - Preliminary Gram positive ryann 12/02/24 02:42 Blood - Venous Blood Culture - Preliminary No growth after 24 hours. 12/02/24 02:42 Blood - Venous Blood Culture - Preliminary No growth after 24 hours. 11/29/24 03:39 Blood - Venous Blood Culture - Preliminary No growth after 48 hours. Procedures Date of Service Date of Service: 12/03/24 Progress Note: A&P Assessment and plan (1) Acute blood loss anemia: Status: Acute Plan 1/ anemia, prob from epistaxis, but he did have a varix which was banded this admission, doing well thus far PLAN: 1/ Advance diet as doing 2/ keep on PPI 3/ maintain lytes and lactulose aiming for 2-3 soft stools daily 4/ low dose carvedilol if BP allows 5/ repeat EGD in 3-4 weeks Time Spent With Patient Time: Total time managing care of this patient today ____ minutes. Quality Stroke Does the patient have a stroke diagnosis?: No VTE Prior VTE?: No VTE Risk Level:: Medical - moderate - high VTE Device Contraindication: N/A - Device Ordered VTE Drug Contraindication: Treatment Not Indicated
--- NOTE | 2024-12-03 15:05 | MHC.RECOVRN ---
Met with pt in 474 to follow up and provide support. Pt sitting in chair, awake, alert, engages in conversation. Pt states I never thought about it in regard to decreasing alcohol use. Pt reports I go straight to the liquor store and I could go for a beer right now. Upon further discussion, pt receptive to receiving resources. Resources provided to pt as well as t/w contact information if needed. Denies questions or concerns for t/w. Discussed with Namrata Lindo APRN.
[2024-12-03] MEDS: cefTRIAXone sodium 2 GM VIAL IVPUSH (20:23)
[2024-12-04] VITALS: BP 102/53; PULSE 78; RESP 20; TEMP 37.1; O2SAT 92
[2024-12-04] MEDS: Lactulose 20 GM/30 ML SOLUTION PO ×2 (02:31→08:52)
[2024-12-04 04:00] VITALS: BP 114/59; PULSE 83; RESP 20; TEMP 37.4; O2SAT 91
[2024-12-04] MEDS: Omeprazole 40 MG CAPSULE.DR PO (06:09)
[2024-12-04] MEDS: metroNIDAZOLE 500 MG TABLET PO ×2 (06:09→15:18)
--- NOTE | 2024-12-04 07:30 | P.DS_ITS ---
DS: Providers Provider Date of Service: 12/04/24 Date of admission: 11/29/24 05:37 Date of discharge: 12/04/24 Primary care physician: None Physician Consults: 11/29/24 05:48 Addiction Medicine Routine Consulting Provider: Addiction Covering Reason for consultation: alcohol use disorder 11/29/24 06:53 Consult to Gastroenterology Routine Consulting Provider: Frannie Rose Reason for consultation: Hematemesis 11/30/24 05:14 Addiction Medicine Routine Consulting Provider: Addiction Covering Reason for consultation: etoh use DS: Diagnosis Discharge Diagnosis (1) Acute blood loss anemia: Status: Acute DS: Summary Hospital Course Hospital Course: This is a 54-year-old male with pertinent history of alcohol use disorder with alcoholic cirrhosis, gastroesophageal reflux disease who presents to the emergency department for management of nosebleed and vomiting. Patient was assessed by behavioral health team and discharged on the day of presentation. Patient presented to the ER for left-sided nosebleed. Also had multiple episodes of vomiting while in the ER. He was found to be febrile with temperature of 100.9 degrees and tachycardic. He denies any symptoms at the time of evaluation. His last drink was on the day of presentation. Does have a history of alcohol withdrawals. In the emergency department, patient was resuscitated with IV crystalloids and given empiric IV antibiotics. Imaging with left-sided pneumonia concerning for aspiration. 4-year-old man admitted with coffee-ground emesis. Epistaxis initially was controlled in the ER with cocaine. Treated with IV Protonix, octreotide with noted hypercoagulopathy, INR 1.6. Pancytopenia was secondary to splenomegaly in the setting of cirrhosis and alcoholism, he received 1 unit platelets and 3 units packed red blood cells. Patient is status post EGD showing esophageal varices, portal hypertensive gastropathy, alcoholic gastritis and esophageal candidiasis. Gi recommended Carafate 1 g b.i.d., Prilosec 40 mg daily, fluconazole 100 mg daily for 3 weeks and repeat EGD in 4 weeks. HIV was negative. Patient has not had any further episodes of bleeding and H&H has remained stable. He was also noted to have sepsis secondary to aspiration pneumonia, treated with Rocephin and Flagyl, blood cultures have remained negative. Patient has followed aspiration precautions. He had noted acute metabolic encephalopathy secondary to hepatic encephalopathy with elevated ammonia, treated with lactulose with decrease in ammonia levels. He had some hypomagnesemia secondary to alcoholism, repleted and resolved. Phenobarbital was used to treat possible alcohol withdrawal symptoms with IV thiamine and folic acid. Patient was seen evaluated by Physical therapy and recommended short-term rehab. Patient is homeless and was encouraged to go to short-term rehab but he declined and stated that he lives behind a liquor store in [place]. Discussed with case management and [facility] is open today at 17:00 and will be open for a few days as the weather is quite cold. Patient is agreeable to go there. Time Attestation Discharge Coordination Time (in mins): 40 Quality: Safe Use of Opioids Does Pt have an Active Cancer Diagnosis on the Problem List?: No Quality: Stroke Does the patient have a stroke diagnosis?: No Physical Exam Vital Signs: Vital Signs: Last Vital Signs Temp 99.4 F 12/04/24 04:00 Pulse 83 12/04/24 04:00 Resp 20 12/04/24 04:00 BP 114/59 L 12/04/24 04:00 Pulse Ox 91 L 12/04/24 04:00 O2 Del Method Room Air 12/04/24 04:00 O2 Flow Rate 2 12/01/24 12:00 Oxygen Flow Rate 2 12/03/24 08:00 BMI result Body Mass Index 20.7 Appearing in no acute distress head is normocephalic atraumatic eyes pupils are PERRLA sclera is anicteric mouth throat mucous membranes are intact and moist neck is supple no lymphadenopathy, no JVD noted lung sounds are clear to auscultation heart regular rate rhythm, clear S1, S2 positive bowel sounds, abdomen is soft, nontender neuro patient is alert x3, no focal deficits DS: Data Data Completed and Pending Completed studies during hospitalization [Text1]: Procedures Control Bleeding in Gastrointestinal Tract, Via Natural or Artificial Opening Endoscopic (08/29/23) Detoxification Services for Substance Abuse Treatment (10/21/24) Drainage of Peritoneal Cavity, Percutaneous Approach (10/21/24) Excision of Ascending Colon, Via Natural or Artificial Opening Endoscopic, Diagnostic (08/03/23) Excision of Descending Colon, Via Natural or Artificial Opening Endoscopic, Diagnostic (08/03/23) Insertion of Infusion Device into Upper Vein, Percutaneous Approach (08/29/23) Introduction of Mineral-based Topical Hemostatic Agent into Lower GI, Via Natural or Artificial Opening Endoscopic, [employer] (08/03/23) Introduction of Mineral-based Topical Hemostatic Agent into Upper GI, Via Natural or Artificial Opening Endoscopic, [employer] (08/29/23) Occlusion of Esophageal Vein with Extraluminal Device, Via Natural or Artificial Opening Endoscopic (08/03/23) Occlusion of Esophageal Vein, Via Natural or Artificial Opening Endoscopic (01/22/24) Transfusion of Nonautologous Plasma Cryoprecipitate into Peripheral Vein, Percutaneous Approach (08/03/23) Transfusion of Nonautologous Platelets into Peripheral Vein, Percutaneous Approach (01/22/24) Transfusion of Nonautologous Red Blood Cells into Peripheral Vein, Percutaneous Approach (08/29/23) Labs on day of discharge: Laboratory Results - last 24 hr 12/03/24 09:26 Hold Purple Top SEE NOTE Sodium 135 Potassium 3.6 Chloride 112 H Carbon Dioxide 19 L Anion Gap 8 L BUN 4 L Creatinine 0.67 Estim Creat Clear Calc 102.7 Estimated GFR > 60 Random Glucose 105 Calcium 7.9 L D Preliminary micro results at discharge 12/02/24 02:42 Blood Culture - Preliminary Blood - Venous No growth after 48 hours. 12/02/24 02:42 Blood Culture - Preliminary Blood - Venous No growth after 48 hours. 11/29/24 03:39 Blood Culture - Preliminary Blood - Venous Gram positive ryann Discharge Plan Discharge Anticipated Discharge Date/Time: 12/04/24 07:24 Patient Disposition: Skilled Nursing Discharge Diagnosis: Acute on chronic anemia Coffee-ground emesis Sepsis Aspiration pneumonia Acute metabolic encephalopathy Hypomagnesemia Epistaxis Alcohol use disorder Referrals: [facility] [Other] - 1 Week (Emergency Skilled Nursing ) Physician,None [Primary Care Provider] - 1 Week Discharge Medications: New fluconazole 100 mg Tablet 100 mg PO DAILY Qty: 10 0RF sucralfate 1 gram Tablet 1 g PO BIDAC Qty: 60 0RF Continued midodrine 5 mg Tablet 5 mg PO TID Qty: 180 0RF furosemide 20 mg Tablet 20 mg PO DAILY Qty: 90 0RF Protocol: Hold for SBP< HOLD for SBP < : 90 omeprazole 20 mg Capsule,Delayed Release(Dr/Ec) 20 mg PO BID@0630,1630 Qty: 60 0RF folic acid 1 mg Tablet 1 mg PO DAILY Qty: 90 0RF thiamine mononitrate (vit B1) 100 mg Tablet 100 mg PO DAILY Qty: 90 0RF magnesium oxide 400 mg (241.3 mg magnesium) Tablet 400 mg PO BIDPC Qty: 180 0RF Discharge Orders: Discharge Order (Routine); Ordered 12/04/24 Ordered By: Massiel Fall Diet: Advance to usual diet Activity on Discharge: As tolerated Stand Alone Forms: Patient Portal Discharge page Print Language: Tajik Care Plan Goals: discharge to nursing home Health Concerns: Acute on chronic anemia Coffee-ground emesis Sepsis Aspiration pneumonia Acute metabolic encephalopathy Hypomagnesemia Epistaxis Alcohol use disorder Plan of Treatment: Follow up with the primary care provider as needed Take all medications as prescribed Assessment: See discharge summary
[2024-12-04 08:00] VITALS: BP 109/57; PULSE 73; RESP 18; TEMP 37.8; O2SAT 92
--- NOTE | 2024-12-04 08:43 | MHC.CM.PN ---
PT MEDICALLY CLEARED FOR DC, PT DECLINING STR, [facility] CONTACTED [phone] AND STAFF REPORTED THEY DO HAVE SPACE AND PT SHOULD ARRIVE AT 5PM, CM WILL ARRANGE FOR LYFT TRANSPORT.
[2024-12-04] MEDS: Magnesium Oxide 400 MG TABLET PO ×2 (08:49→16:14)
[2024-12-04] MEDS: Folic Acid 1 MG TABLET PO (08:49)
[2024-12-04] MEDS: Potassium Chloride ER 20 MEQ TAB.ER.PRT 40 MEQ PO (08:49)
[2024-12-04] MEDS: Midodrine HCl 5 MG TABLET PO ×2 (08:49→15:18)
[2024-12-04] MEDS: Thiamine HCL 100 MG TABLET PO (08:49)
[2024-12-04] MEDS: Sucralfate 1 GM TABLET PO ×2 (08:49→16:14)
[2024-12-04] MEDS: Fluconazole 100 MG TABLET PO (08:49)
[2024-12-04] MEDS: 0.9 % Sodium Chloride Flush 3 ML SYRINGE IVFLUSH ×2 (08:52→15:20)
[2024-12-04 12:00] VITALS: BP 117/60; PULSE 77; RESP 18; TEMP 38; O2SAT 97
--- NOTE | 2024-12-04 12:50 | P.PNGI_ITS ---
Subjective Subjective Date of Service: 12/04/24 Interval History: remains stable no abdominal pain HGB stable, but says he is passing darks stools no epistaxis vitals are normal Critical Care Time (minutes): 0 Physical Exam 2 Vital Signs: Vital Signs: Last Vital Signs Temp 100.4 F 12/04/24 12:00 Pulse 77 12/04/24 12:00 Resp 18 12/04/24 12:00 BP 117/60 12/04/24 12:00 Pulse Ox 97 12/04/24 12:00 O2 Del Method Room Air 12/04/24 12:00 O2 Flow Rate 2 12/01/24 12:00 Oxygen Flow Rate 2 12/03/24 08:00 BMI result Body Mass Index 20.7 EXAM: GENERAL: The patient is thin, relaxed VITAL SIGNS:see workflow HEENT: Nonicteric sclerae, PERRLA, EOMI. Oropharynx clear. Moist mucous membranes. Conjunctivae appear well perfused. No thyroid mass. CHEST: Chest wall is nontender. HEART: Regular rate and rhythm without murmurs. LUNGS: Clear to auscultation bilaterally. ABDOMEN: Soft, positive bowel sounds, nontender, no organomegaly.no flank tenderness SKIN: No rash, no excessive bruising, petechiae, or purpura. NEUROLOGIC: Cranial nerves II-XII intact without motor/sensory deficit. Psych: normal affect Objective Data Labs 12/01/24 09:03 12/03/24 09:26 Microbiology Microbiology Results: Microbiology 11/29/24 03:39 Blood - Venous Blood Culture - Final No growth after 5 days. 12/02/24 02:42 Blood - Venous Blood Culture - Preliminary No growth after 48 hours. 12/02/24 02:42 Blood - Venous Blood Culture - Preliminary No growth after 48 hours. 11/29/24 03:39 Blood - Venous Blood Culture - Preliminary Gram positive ryann Procedures Date of Service Date of Service: 12/04/24 Progress Note: A&P Assessment and plan (1) Acute blood loss anemia: Status: Acute Plan 1/ Acute blood loss anemia, probably from epistaxis, did have varices, with banding but no high risk stroud PLAN: 1/ Cont with PPI 2/ low dose carvedilol 3/ alcohol avoidance 4/ o/p f/u 5/ avoid nsaids Time Spent With Patient Time: Total time managing care of this patient today ____ minutes. Quality Stroke Does the patient have a stroke diagnosis?: No VTE Prior VTE?: No VTE Risk Level:: Medical - moderate - high VTE Device Contraindication: N/A - Device Ordered VTE Drug Contraindication: Treatment Not Indicated
[2024-12-04 15:51] VITALS: BP 111/55; PULSE 92; RESP 18; TEMP 37.1; O2SAT 93
== END 2024-12-04 16:58 | disposition home or self-care (01) | DRG 720 ==
LOC: HO.ED 11-29 03:59 → HO.EDOVER 11-29 05:43 → HO.S3 11-29 06:45 → HO.IMC 11-29 07:50 → HO.EDOVER 11-29 08:24 → HO.IMC 11-29 19:43
PROVIDERS: Internal Medicine Gastroenterology; Physician Assistant Medical; Admitting Provider Student in an Organized Health Care Education/Training Program; Emergency Provider Emergency Medicine; Visit Provider Nurse Practitioner Acute Care
PROC: 0DJ08ZZ Inspection of Upper Intestinal Tract, Via Natural or Artificial Opening Endoscopic (ICD-10-PCS; CPT 43235; principal; 2024-11-30 10:30)
DX: A41.9 Sepsis, unspecified organism (principal); J69.0 Pneumonitis due to inhalation of food and vomit; G93.41 Metabolic encephalopathy; I85.11 Secondary esophageal varices with bleeding; D61.818 Other pancytopenia; K76.82 Hepatic encephalopathy; K29.21 Alcoholic gastritis with bleeding; K70.30 Alcoholic cirrhosis of liver without ascites; K76.6 Portal hypertension; D73.2 Chronic congestive splenomegaly; K31.89 Other diseases of stomach and duodenum; B37.81 Candidal esophagitis; F10.20 Alcohol dependence, uncomplicated; E83.42 Hypomagnesemia; D62 Acute posthemorrhagic anemia; R04.0 Epistaxis; Z20.822 Contact with and (suspected) exposure to COVID-19; Z59.02 Unsheltered homelessness; Z87.891 Personal history of nicotine dependence; Z79.899 Other long term (current) drug therapy
CPT/HCPCS: 0241U; 36415; 70450; 71260; 74177; 80048; 80053; 80307; 81003; 82140; 83605; 83690; 83735; 85014; 85018; 85025; 85027; 85610; 86850; 86900; 86901; 86920; 86922; 87040; 87076; 87185; 87205; 87389; 92610; 97162; 99285; C9143; J0131; J0696; J1836; J2003; J2060; J2354; J2470; J2560; J2704; J3010; J3411; J3475; J7120; P9016; P9047; P9073; Q9967

== ENCOUNTER → 2024-11-29 03:18 | Outpatient (BNV) | payer MEDICAID, SELFPAY | PROVIDERS: Admitting Provider Student in an Organized Health Care Education/Training Program; Emergency Provider Emergency Medicine; Visit Provider Radiology Diagnostic Radiology | DX: K76.9 Liver disease, unspecified (principal); K80.20 Calculus of gallbladder without cholecystitis without obstruction; R16.2 Hepatomegaly with splenomegaly, not elsewhere classified; R18.8 Other ascites; R91.8 Other nonspecific abnormal finding of lung field | CPT/HCPCS: 71260; 74177 ==

== ENCOUNTER 2024-11-29 05:37 | Outpatient (BNV) | payer MEDICAID, SELFPAY | END 2024-11-30 01:10 | PROVIDERS: Admitting Provider Student in an Organized Health Care Education/Training Program; Emergency Provider Emergency Medicine; Visit Provider Radiology Diagnostic Radiology | DX: R41.82 Altered mental status, unspecified (principal) | CPT/HCPCS: 70450 ==

== ENCOUNTER → 2024-11-29 05:37 | Outpatient (BNV) | payer MEDICAID, SELFPAY | PROVIDERS: Admitting Provider Student in an Organized Health Care Education/Training Program; Emergency Provider Emergency Medicine; Visit Provider Internal Medicine Gastroenterology | DX: D62 Acute posthemorrhagic anemia (principal) | CPT/HCPCS: 99223; 99232 ==

== ENCOUNTER → 2024-11-29 05:37 | Outpatient (BNV) | payer MEDICAID, SELFPAY | PROVIDERS: Admitting Provider Student in an Organized Health Care Education/Training Program; Emergency Provider Emergency Medicine; Visit Provider Student in an Organized Health Care Education/Training Program | DX: J69.0 Pneumonitis due to inhalation of food and vomit (principal) | CPT/HCPCS: 99223; 99232; 99239; 99499 ==

== ENCOUNTER → 2024-11-29 05:37 | Outpatient (BNV) | payer MEDICAID, SELFPAY | PROVIDERS: Admitting Provider Student in an Organized Health Care Education/Training Program; Emergency Provider Emergency Medicine; Visit Provider Nurse Practitioner Psychiatric/Mental Health | DX: F10.90 Alcohol use, unspecified, uncomplicated (principal) | CPT/HCPCS: 99222 ==

== ENCOUNTER 2024-12-07 18:11 | Emergency (ER) | payer MEDICAID, SELFPAY ==
[2024-12-07 18:56] VITALS: PULSE 75
[2024-12-07 18:57] VITALS: BP 104/55; PULSE 82; RESP 16; O2SAT 95; BMI 22.3
--- NOTE | 2024-12-07 19:01 | PC.NURSE ---
Patient changed over into hospital attire w/ security, [facility]
--- OUTSIDE RECORDS SUMMARY | 2024-12-07 19:03 | XMS_ITS | Data Portability ---
Author Organization [facility], Main Office Address [address] [place] [address] [address] [place] [address] Care Team Providers Care Seasonal Recruiter Name Role Phone [facility] ([facility]) OTHER Assessment Encounter Date Assessment Date Assessment LastModified by Organization Details LastModified Time 11/08/2023 11/08/202311/04 labs: Na 138-K+ 4.5-Bun 13- Cr 0.8- WBC 1.9-hgb 7.4-Plt 49. labs ordered for 11/09/23 Not available 11/08/2023 16:31:18 11/14/2023 11/14/202311/04 labs: Na 138-K+ 4.5-Bun 13- Cr 0.8- WBC 1.9-hgb 7.4-Plt 49. 11/09 labs collected at 0650: wbc 2.5 - hgb 7.0- hct 24-plt 52 11/09 labs repeat at 1422: wbc 3.7-hgb 8.1- hct 25.5- Plt 68 repeat labs ordered for 11/15/23 Not available 11/14/2023 21:48:55 11/17/2023 11/17/202311/04 labs: Na 138-K+ 4.5-Bun 13- Cr 0.8- WBC 1.9-hgb 7.4-Plt 49. 11/09 labs collected at 0650: wbc 2.5 - hgb 7.0- hct 24-plt 52 11/09 labs repeat at 1422: wbc 3.7-hgb 8.1- hct 25.5- Plt 68 11/17 Labs: Na 138- K 4.6- Bun 23-Cr 0.7-wbc 2.6 Not available 11/17/2023 13:18:39 Plan of Treatment Reminders Order Date Submit Date Provider Last Modified By Organization Details Last Modified Time Details Appointments None record ed. Lab None record ed. Referral None record ed. Procedures None record ed. Surgeries None record ed. Imaging None record ed. Medication Orders None record ed. Patient TargetsNo targets recorded. Patient InstructionsNo instructions recorded. Reason for Referral None Reported. Problems Name Problem SNOMED Code Status Onset Date Resolution Date Notes Provider Name and Address Organization Details Recorded Time Alcohol abuse 79775230 Active 2022 HALEY WYATT [address] [facility], [address], [place], [address], [facility] 3 16:10:20 Alcoholic cirrhosis 625879203 Active 2022 HALEY WYATT [address] [facility], [address], [place], [address], [facility] 3 16:10:32 Anemia 479224902 Active 2022 HALEY WYATT [address] [facility], [address], [place], [address], [facility] 3 16:10:45 Hepatic encephalop athy 76156165 Active 2022 HALEY WYATT [address] [facility], [address], [place], [address], [facility] 3 16:11:37 Acute respirator y failure 86685383 Active 2022 HALEY WYATT [address] [facility], [address], [place], [address], [facility] 3 16:12:23 Laboratory finding abnormal Active 2022 hypokalemi a hypomagnes ium pancytopen ua repleted in acute care. mag oxide 400 mg BID HALEY WYATT [address] [facility], [address], [place], [address], [facility] 3 16:40:30 Congestive heart failure 55884182 Active 2022 HALEY WYATT [address] [facility], [address], [place], [address], [facility] 3 16:25:07 Homeless 54679448 Active 2022 ANDREYHALEY GASPAR [address] [facility], [address], [place], [address], [facility] 3 16:55:00 Pancytopen ia 071084608 Active 2022 ANDREYHALEY GASPAR [address] [facility], [address], [place], [address], [facility] 3 21:48:09 Esophageal varices 43299868 Active 2022 HALEY WYATT [address] [facility], [address], [place], [address], [facility] 3 16:19:34 Problem Notes None recorded. Medical Equipment None Reported. Allergies No known drug allergies Vitals Date Recorded Body temperature Oxygen saturation Oxygen saturation in Arterial blood by Pulse oximetry Heart rate Systolic blood pressure Diastolic blood pressure Provider Name and Address Organization Details Last Updated DateTime 4 97.6 [degF] 95 % 95 % 67 /min 110 mm[Hg] 70 mm[Hg] Lis Oconnell MD [address] [place] [address], [facility] [address], [place], [address], [facility] 4 08:21:06 Date Recorded Heart rate Respiratory rate Body temperature Oxygen saturation Oxygen saturation in Arterial blood by Pulse oximetry Systolic blood pressure Diastolic blood pressure Provider Name and Address Organization Details Last Updated DateTime 4 67 /min 16 /min 97.6 [degF] 95 % 95 % 107 mm[Hg] 66 mm[Hg] BRADY HOGAN NP [address] [facility], [address], [place], [address], [facility] 4 10:20:23 Social History Question Answer Notes LastModified by Organizat ion Details LastModified Time Tobacco Smoking Status Former Smoker ANDREY RODRIGUEZHALEY CRUZ [address] [facility], [address], [place], [address], [facility] 09/12/2023 16:57:06 Do You Have An Advance Directive? Yes Information not available 09/12/2023 What Is Your Level Of Alcohol Consumption? Moderate Information not available 09/12/2023 How Many Times Per Week Do You Consume Alcohol? 5-7 Times Per Week Information not available 09/12/2023 What Is Your Level Of Caffeine Consumption? None Information not available 09/12/2023 What Is Your Code Status? Full Code Information not available 09/12/2023 Where Do You Live? Other Homeless Information not available 09/12/2023 Legal Guardian? No HCP/not Invoked Information not available 09/12/2023 Do You Have A Medical Power Of Test Man? No HCP/brother Information not available 09/12/2023 What Was The Date Of Your Most Recent Tobacco Screening? 09/12/2023 Information not available 09/12/2023 Do You Have An Out Of Hospital DNR? No Information not available 09/12/2023 Have You Ever Been Counseled For Unhealthy Alcohol Use? Yes Information not available 09/12/2023 What Is Your Relationship Status? Single Information not available 09/12/2023 Do You Use Any Illicit Or Recreational Drugs? No Information not available 09/12/2023 Has Tobacco Cessation Counseling Been Provided? No Information not available 09/12/2023 How Many Years Have You Smoked Tobacco? 12 Information not available 09/12/2023 Do You Or Have You Ever Used Any Other Forms Of Tobacco Or Nicotine? No Information not available 09/12/2023 Sex: Unknown Functional Status None recorded. Mental Status None recorded. Family History Nothing Reported. Medical History No medical history recorded. Immunizations Vaccine Type Date Status Note Provider Nam e and Address Organization Details Recorded Time COVID-19, mRNA, LNP-S, bivalent, PF, 30 mcg/0.3 mL dose 3 completed Mojgan jain [facility] 11/10/2023 13:12:58 Tdap 1 completed Mojgan jain [facility] 03/01/2024 11:01:29 Td (adult), 5 Lf tetanus toxoid, preservative free, adsorbed 7 completed Mojgan jain [place] [facility] 03/01/2024 11:06:00 Past Encounters Encounter ID Performer Location Encounter Start Date Encounter Closed Date Diagnosis/Indication Diagnosis SNOMED-CT Code Diagnosis ICD10 Code Diagnosis Note [id number] HALEY WYATT [facility] on [address] [place] [address] 09/12/2023 08:36:44 09/15/2023 08:04:55 Hepatic encephalopathy 72524341 K76.82 resolved in acute care/see hpistarted on lactuloser ifaximin 550 mg BIDlactulo se 40 g TID. Acute resp iratory failure 59648730 J96.00 with hypoxia d/t to acute on chronic heart failure-di uresed w/IV lasix resolved in acute care Anemia 837281541 D64.9 see hpiCT scan with distal esophageal varices.- EGD suspected gastric varies as source of bleedfollo w up with GI in 4 weeks for repeat EGD Congestive heart failure 32770256 I50.9 with preserved ejection fractionCT scan showed small plueral effusionCX R with bibasilar opacitiesc ontinue furosemide 20 mg BIDcontinu e spironolac tone 12.5 mg BIDlow salt diet.monit or weight Alcohol abuse 98147794 F 10.10 with acute withdrawal in acute care tx with phenobarbi germania taper.decl ined recovery support in acute carethiami ne 100 mg dailyfolic acid 1 mg daily Bleeding g astric varices 15169256 I86.4 source of anemiaomep razole [address] dailysucra lfate 1 gm BIDcontinu e PPI and sucralfate Homeless 49154690 Z59.00 Social service refer for community resources. [id number] Lis Oconnell MD [facility] on [address] [place] [address] 09/13/2023 05:12:10 09/15/2023 08:33:31 Acute on chronic diastolic heart failure 163855021 I50.33 improved:s pironolact one 12.5 mg bidfurosem eliana 20 mg bidwill monitor Alcohol abuse 95408172 F 10.10 thiamine 100 mg dailyfolic acid 1 gm dailyinter disciplina ry support for sobrietywi ll monitor and support as needed Bleeding e sophageal varices 65323641 I85.01 s/p blood transfusio ns, octeotride , banding/he mospray:om eprazole 40 mg dailysucra lfate 1 gm bidwill monitor Alcoholic cirrhosis 4200 77338 K70.31 Xifaxan 550 mg bidspirono lactone 12.5 mg bidfurosem eliana 20 mg bidwill monitor Hepatic encephalopathy 77589609 K76.82 lactulose 40 gm tidwill monitor [id number] HALEY WYATT [facility] on [address] [place] [address] 09/18/2023 11:37:36 09/20/2023 15:12:00 Congestive heart failure 57402751 I50.9 continue furosemide 20 mg BIDcontinu e spironolac tone 12.5 mg BIDlow salt diet.monit or weight Alcohol abuse 76817794 F 10.10 will consider acamprosta te 666 mg TID.thiami ne 100 mg dailyfolic acid 1 mg daily Bleeding g astric varices 33218713 I86.4 source of anemiaomep razole [address] dailysucra lfate 1 gm BIDcontinu e PPI and sucralfate Hepatic encephalopathy 12715215 K76.82 resolved in acute care/see hpistarted on lactuloser ifaximin 550 mg BIDlactulo se 40 g TID.- reports loose stool x's 1 daily. will continue to monitor for now . [id number] HALYE WYATT [facility] on [address] [place] [address] 10/06/2023 10:25:53 10/18/2023 12:16:47 Altered mental status 446335013 R41.82 see hpiconcern for hepatic encephalop athy due to hxsend to ER for further evaluation [id number] HALEY WYATT [facility] on [address] [place] [id number] 10/12/2023 13:49:36 10/18/2023 15:10:16 Hepatic encephalopathy 76697140 K76.82 resolved in acute care/see hpiimaging with no acute processCon tinue lactulose, rifaximin, Lasix, spironolac toneFollow -up outpatient GI Congestive heart failure 88124013 I50.9 continue furosemide 20 mg BIDcontinu e spironolac tone 12.5 mg BIDlow salt diet.monit or weight Pancytopenia 493939764 D 61.818 wbc 3.41-Hgb 7.3-HCT 23.2Possib ly due to alcohol abuseWill continue to monitor CBC [id number] HALEY WYATT [facility] on [address] [place] [address] 10/16/2023 13:03:21 11/22/2023 15:10:28 Hepatic encephalopathy 26434951 K76.82 resolved in acute care/see hpiimaging with no acute processCon tinue lactulose, rifaximin, Lasix, spironolac toneFollow -up outpatient GI Congestive heart failure 37301006 I50.9 continue furosemide 20 mg BIDcontinu e spironolac tone 12.5 mg BIDlow salt diet.monit or weight Pancytopenia 972826880 D 61.818 see aboveimpro kiki hgb 8.8- Plt 68Possibly due to alcohol abuseWill continue to monitor CBC [id number] HALEY WYATT [facility] on [address] [place] [address] 10/24/2023 11:18:12 11/03/2023 11:47:28 Hepatic encephalopathy 27217739 K76.82 alert and oriented x's 2 today unsure of date.resol kiki in acute care/see hpiimaging with no acute processCon tinue lactulose, rifaximin, Lasix, spironolac toneFollow -up outpatient GI Congestive heart failure 97609398 I50.9 Stablke, no reported sxcontinue furosemide 20 mg BIDcontinu e spironolac tone 12.5 mg BIDlow salt diet.monit or weight Pain of le ft shoulder joint 8967687808 6351553 M25.512 see hpixray 3 viewstylen ol 975 mg scheduledm otrin 600 mg scheduled. PT referral for pain with abduction. [id number] HALEY WYATT [facility] on [address] [place] [id number] 10/27/2023 09:08:50 11/03/2023 12:28:46 Hepatic encephalopathy 00652214 K76.82 appears to be a baseline status, however he appears disoriente d at times.Cont inue lactulose, rifaximin, Lasix, spironolac toneFollow -up outpatient GI Congestive heart failure 01903434 I50.9 Stablecont inue furosemide 20 mg BIDcontinu e spironolac tone 12.5 mg BIDlow salt diet.monit or weight Pain of le ft shoulder joint [id number] 1234149 M25.512 Xray completed, results reviewed with patient: Mild degenerati on of the left shoulder; no acute fracture or dislocatio n. continue with:tylen ol 975 mg scheduledm otrin 600 mg scheduled. PT referral for pain with abduction. [id number] HALEY WYATT [facility] on [address] [place] [id number] 11/08/2023 08:13:22 11/22/2023 16:43:01 Daisy-Zee tear 990447148 K22.6 2 days of melena with coffee-kell und emesis on presentati on.GI consulted and performed upper endoscopy on 10/31, evidence of daisy zee tear, gastric ulcers s/p clip placement. continue PPI omeprazole 40 mg twice daily.Carv edilol started as per recommenda tions for esophageal varicesPat ient was advised to avoid NSAID Esophageal varices 15800 008 I85.00 Started on carvedilol 6.25 mg bidomepraz ole 40 mg bidsucralf ate 1 gm BID Anemia 026829063 D64.9 Hgb 6.4 on presentati on to acute careDue to upper GI bleed,Rece ived 3 units of PRBC in acute careCarved ilol started for varices [id number] HALEY WYATT [facility] on [address] [place] [id number] 11/14/2023 07:57:53 12/01/2023 10:08:54 Daisy-Zee tear 131745009 K22.6 11/14 there has been no reported couging and vomiting. 2 days of melena with coffee-kell und emesis on presentati on.GI consulted and performed upper endoscopy on 10/31, evidence of daisy zee tear, gastric ulcers s/p clip placement. continue PPI omeprazole 40 mg twice daily.Carv edilol started as per recommenda tions for esophageal varicesPat ient was advised to avoid NSAID Esophageal varices 07590 008 I85.00 stableStar forrest on carvedilol 6.25 mg bidomepraz ole 40 mg bidsucralf ate 1 gm BID Anemia 756166182 D64.9 11/14will recheck labspatien t denies excess fatigue, weakness, shortness of breathdoes not appear pale, color normal. Hgb 6.4 on presentati on to acute careDue to upper GI bleed,Rece ived 3 units of PRBC in acute careCarved ilol started for varices [id number] HALEY WYATT [facility] on [address] [place] [id number] 11/17/2023 08:07:13 12/01/2023 11:37:06 Daisy-Zee tear 183365194 K22.6 stable, There has been no new reported sx.2 days of melena with coffee-kell und emesis on presentati on.GI consulted and performed upper endoscopy on 10/31, evidence of daisy zee tear, gastric ulcers s/p clip placement. continue PPI omeprazole 40 mg twice daily.Carv edilol started as per recommenda tions for esophageal varicesPat ient was advised to avoid NSAID Esophageal varices 98063 008 I85.00 stableStar forrest on carvedilol 6.25 mg bidomepraz ole 40 mg bidsucralf ate 1 gm BID Anemia 993670652 D64.9 11/15: hgb 8.0 hct 25.6will recheck labs Hgb 6.4 on presentati on to acute careDue to upper GI bleed,Rece ived 3 units of PRBC in acute careCarved ilol started for varices [id number] Lis Oconnell MD [facility] on [address] [place] [phone] 11/24/2023 08:20:43 11/29/2023 17:59:33 Alcohol abuse 55215795 F10.10 thiamine 100 mg dailyfolic acid 1 gm dailyMVI dailyacamp rosate 666 mg tidinterdi sciplinary support for sobrietywi ll monitor and support as needed Upper gastrointestinal bleeding 07430477 K92.89 with history varices, Daisy Zee tear:sucra lfate 1 gm bidomepraz ole 40 mg [id number] monitoravo id NSAIDs Alcoholic cirrhosis 4200 89575 K70.31 Xifaxan 550 mg bidspirono lactone 12.5 mg bidfurosem eliana 20 mg dailylactu lose 40gm tidwill monitor Esophageal varices 13124 008 I85.00 see meds for history UGI bleed:also carvedilol 6.25 mg bidwill monitor [id number] BRADY HOGAN NP [facility] on [address] [place] [address] 11/28/2023 09:53:56 12/01/2023 12:57:26 Alcohol abuse 39510256 F10.10 thiamine 100 mg dailyfolic acid 1 gm dailyMVI dailyacamp rosate 666 mg tidinterdi sciplinary support for sobrietywi ll monitor and support as needed Upper gastrointestinal bleeding 94036402 K92.89 with history varices, Daisy Zee tear:sucra lfate 1 gm bidomepraz ole 40 mg [id number] monitoravo id NSAIDs Alcoholic cirrhosis 4200 22555 K70.31 Xifaxan 550 mg bidspirono lactone 12.5 mg bidfurosem eliana 20 mg dailylactu lose 40gm tidwill monitor Esophageal varices 48412 008 I85.00 see meds for history UGI bleed:carv edilol 6.25 mg bidwill monitor Health Concerns Section Related Observation LastModified by Organization Detai ls LastModified Time None Recorded Concern Status LastModified by Organization Details LastModified Time None Recorded Advance Directives Directive Y: Payers Encounter Date Sequence Insurance Name Policy Number Policy Yip Covered Member ID Yip Member ID Guarantor Name 11/08/2023 1 [place] [facility] Charbel Delgado [id number] Charbel Delgado 11/14/2023 1 [place] [facility] Charbel Delgado [id number] Charbel Delgado 11/17/2023 1 [place] [facility] [id number] Charbel Delgado 11/24/2023 1 [place] [facility] [id number] Charbel Delgado 11/28/2023 1 [place] [facility] [id number] Charbel Delgado Notes Date Note Type Note Provider Name and Address Organization Details Recorded Time 11/08/2023 text/html Patient is 53-ye ar-old male seen today for re-admission. Past medical history of alcoholic cirrhosis, CHF, HTN, pancytopenia. On 10/30 patient sent to ED for evaluation for vomiting blood. GI consulted and performed upper endoscopy on 10/31, there was evidence of daisy zee tear, and gastric ulcers s/p clip placement. Received 3 units of PRBC during the hospitalization. Patient started on clear liquid diet after procedure and transitioned to regular diet on 11/02, patient tolerating. Patient will be discharged on PPI twice daily. Carvedilol started as per recommendations for esophageal varices. Patient was advised to avoid NSAIDs. Patient to follow-up with gastroenterology for repeat endoscopy in a few weeks. Molst: HALEY Cummings [address] [facility], [address], [place], [address], [facility] 11/08/2023 16:31:23 11/14/2023 text/html Patient is 53-ye ar-old male seen today for acute rounding visit. Today he is stable, he was sent to ED on 11/09 for hgb noted 7.0 and had repeat labs in ED hgb 8.1. He returned to [facility] the same evening and has been stable. There are no acute nursing concerns. Past medical history of alcoholic cirrhosis, CHF, HTN, pancytopenia. On 10/30 patient sent to ED for evaluation for vomiting blood. GI consulted and performed upper endoscopy on 10/31, there was evidence of daisy zee tear, and gastric ulcers s/p clip placement. Received 3 units of PRBC during the hospitalization. Patient started on clear liquid diet after procedure and transitioned to regular diet on 11/02, patient tolerating. Patient will be discharged on PPI twice daily. Carvedilol started as per recommendations for esophageal varices. Patient was advised to avoid NSAIDs. Patient to follow-up with gastroenterology for repeat endoscopy in a few weeks. HALEY WYATT [address] [facility], [address], [place], [address], [facility] 11/14/2023 21:53:05 11/17/2023 text/html Patient is 53-ye ar-old male seen today for acute rounding visit. Past medical history of alcoholic cirrhosis, CHF, HTN, pancytopenia. On 10/30 patient sent to ED for evaluation for vomiting blood. GI consulted and performed upper endoscopy on 10/31, there was evidence of daisy zee tear, and gastric ulcers s/p clip placement. Received 3 units of PRBC during the hospitalization. Patient started on clear liquid diet after procedure and transitioned to regular diet on 11/02, patient tolerating. Patient will be discharged on PPI twice daily. Carvedilol started as per recommendations for esophageal varices. Patient was advised to avoid NSAIDs. Patient to follow-up with gastroenterology for repeat endoscopy in a few weeks. Patient has been stable, he tells me that he is doing ok. There is no acute nursing concerns. 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 Medical history is remarkable for history of alcohol use disorder with alcoholic cirrhosis, HFpEF, hypertension, ADHD, anxiety, depression Patient was sent out of facility to ER at [facility] on 10/30/23 with melena and coffee-ground emesis. Upper endoscopy on 10/31/23 should evidence of Daisy Zee tear, and gastric ulcers s/p clip placement. Patient received 3U of PRBCs during hospital stay. He was started on PPI bid as well as carvedilol due to esophageal varices. It was recommended to avoid NSAIDs. Patient was sent out of facility to ER again on 11/09/23 due to hemoglobin of 7.0. Repeat hemoglobin at ER was 8.1 and patient returned later that day to facility. Today patient is organizing his space in his room, making the bed. He shows me what he has been working on. Advanced directives: no signed MOLST in [facility] record at this time; full code assumed Lis Oconnell MD [address] [facility], [address], [place], [address], [facility] 11/24/2023 12:23:26 11/28/2023 text/html seen today for a cute rounding visit, CAOx3 he is complaining about being bored, independent in room, gait steady, mood stable, staff report no concerns BRADY HOGAN NP [address] [facility], [address], [place], [address], [facility] 11/28/2023 10:23:34
--- OUTSIDE RECORDS SUMMARY | 2024-12-07 19:03 | XMS_ITS | Encounter Summary ---
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 Role Phone Unavailable Primary Care Provider Unavailabl e Encounter Details Date Type Department Care Team (Late st Contact Info) Description 11/28/2024 Orders Only [facility] External Provider, [facility] Social History Tobacco Use Types Packs/Day Years Used Date Smoking Tobacco: Never Assessed Sex and Gender Information Value Date Recorded Sex Assigned at Male 11/23/2022 11:29 AM EST Legal Sex Male 11:26 AM EST Gender Identity Male 11/23/2022 11:29 AM EST Sexual Orientation Straight 01/11/2024 8: 14 AM EST documented as of this encounter Plan of Treatment Not on file documented as of this encounter Procedures Procedure Name Priority Date/Time Associated Diagnosis Comments CT ABDOMEN PELVIS W CONTRAST Routine 11/29/2024 5:[address] CHEST W CONTRAST Routine 11/29/2024 5 :14 AM EST documented in this encounter Results * CT Chest w/ Contrast (11/29/2024 5:14 AM EST) Anatomical Region Laterality Modality Body, Chest Computed Tomogra phy 11/29/2024 5:14 AM EST Narrative 11/29/2024 5:16 AM EST ? [facility] ?[address] ?[place] [address] ? CT Scan Report ? Signed ? Patient: Delgado,Charbel ?MR#: [id number] ? : 1970 ?Acct:[id number] ? Age/Sex: 54 / M ?ADM Date: 01/16/25 ? Loc: HO.ED ? Attending Dr: ? Ordering Physician: Trudy Brannon ?? Date of Service: 11/29/24 ?? Procedure(s): CT chest w IV con ?? Accession Number(s): [id number] ? cc: Trudy Brannon; [facility] ? Report Number: ?? [id number]: Total DLP = ??248.00 mGy-cm ? CLINICAL HISTORY: infection, aspiraion ? CT chest with contrast ? Comparison: None ? Findings: ?? The heart is enlarged with doae-lz-zlvpxnbm coronary calcium. No ?? pericardial effusion. No adenopathy. Esophagus is decompressed. Large ?? gastroesophageal varices. ?? Unremarkable thyroid. Small amount of gynecomastia. No axillary ?? adenopathy. ?? Exam is markedly degraded by respiratory motion. The right lung is clear ?? aside from minimal hypoventilatory changes in the lung base. There is ?? patchy consolidation within the left lung base. No large effusion or ?? pneumothorax. No pulmonary mass. ? The upper abdomen is discussed on the concurrent CT abdomen pelvis report. ?? Compression fracture of T9 with complete anterior height loss. No ?? significant retropulsion. ? IMPRESSION: ?? 1. Patchy consolidation in the left lung base which can be seen in the ?? setting of aspiration. ?? 2. Markedly motion degraded exam. ?? 3. Age indeterminate compression fracture at T9 with complete anterior ?? height loss. ? This document has been electronically signed by: Mary Rogers MD on ?? 11/29/2024 05:14:27 ? Dictated By: ?Mary Rogers MD ? Signed By: ?<Electronically signed by Mary Rogers MD in OV> ?11/29/24 0515 ? DD/ 0514 ? TD/TT: 11/29/24 0514 ? Swedger: ? Procedure Note Moy, Renato - 11/29/[address] [address] [address] Scan Report Signed Patient: Isaias Delgado#: [id number] : 1970Acct:[id number] Age/Sex: 54 / MADM Date: 11/28/24 Loc: HO.ED Attending Dr: Ordering Physician: Trudy Brannon Date of Service: 11/29/24 Procedure(s): CT chest w IV con Accession Number(s): [id number] cc: Trudy Brannon; [facility] Report Number: [id number]: Total DLP = 248.00 mGy-cm CLINICAL HISTORY: infection, aspiraion CT chest with contrast Comparison: None Findings: The heart is enlarged with nanr-la-ebkjfjef coronary calcium. No pericardial effusion. No adenopathy. Esophagus is decompressed. Large gastroesophageal varices. Unremarkable thyroid. Small amount of gynecomastia. No axillary adenopathy. Exam is markedly degraded by respiratory motion. The right lung is clear aside from minimal hypoventilatory changes in the lung base. There is patchy consolidation within the left lung base. No large effusion or pneumothorax. No pulmonary mass. The upper abdomen is discussed on the concurrent CT abdomen pelvis report. Compression fracture of T9 with complete anterior height loss. No significant retropulsion. IMPRESSION: 1. Patchy consolidation in the left lung base which can be seen in the setting of aspiration. 2. Markedly motion degraded exam. 3. Age indeterminate compression fracture at T9 with complete anterior height loss. This document has been electronically signed by: Mary Rogers MD on 11/29/2024 05:14:27 Dictated By: Mary Rogers MD Signed By: <Electronically signed by Mary Rogers MD in OV> 11/29/24 0515 DD/ TD/TT: 11/29/2414 Swedger: [facility] [place] External Provider IMG CT PROCEDURES Edited Result - Final * CT Abdomen Pelvis w/ Contrast (11/29/2024 5:14 AM EST) Anatomical Region Laterality Modality Body, Pelvis, Abdomen Computed T omography 11/29/2024 5:14 AM EST Narrative 11/29/2024 5:16 AM EST ? [facility] ?[address] ?[place] [address] ? CT Scan Report ? Signed ? Patient: Delgado,Charbel ?MR#: [id number] ? : 1970 ?Acct:[id number] ? Age/Sex: 54 / M ?ADM Date: 01/16/25 ? Loc: HO.ED ? Attending Dr: ? Ordering Physician: Trudy Brannon ?? Date of Service: 11/29/24 ?? Procedure(s): CT abdomen pelvis w IV con ?? Accession Number(s): [id number] ? cc: Trudy Brannon; [facility] ? Report Number: ?? [id number]: Total DLP = ??512.00 mGy-cm ? CLINICAL HISTORY: pain, fever ? CT abdomen and pelvis with contrast ? Comparison: None ? Findings: ?? Evaluation of the lung bases is limited by significant respiratory motion. ?? Please see separately reported CT chest with contrast report. ? The liver is enlarged demonstrating contour nodularity and lobar ?? redistribution. No discrete lesion. The spleen is also enlarged. ?? Cholelithiasis without biliary ductal dilation. Pancreas, adrenal glands ?? and kidneys demonstrate no acute findings. ?? Moderately distended stomach. Small bowel and colon demonstrate no acute ?? findings. Exam is markedly motion degraded limiting evaluation of the ?? bowel wall. ? Pelvic contents unremarkable. Appendix not definitively identified. Small ?? volume ascites. ?? Nonaneurysmal aorta. Portal vein is patent. Large portosystemic ?? collaterals in the left upper quadrant including large paraesophageal ?? varices. No adenopathy. ?? No acute fracture. ? IMPRESSION: ?? Markedly motion degraded exam. ?? Morphologic changes of chronic liver disease with hepatosplenomegaly, ?? small volume ascites enlarged portosystemic collaterals including large ?? paraesophageal varices. ?? Cholelithiasis without acute cholecystitis. ? This document has been electronically signed by: Mary Rogers MD on ?? 11/29/2024 05:14:13 ? Dictated By: ?Mary Rogers MD ? Signed By: ?<Electronically signed by Mary Rogers MD in OV> ?11/29/24 0515 ? DD/ 0514 ? TD/TT: 11/29/24 0514 ? Swedger: ? Procedure Note Renato Winter - 11/29/[address] [address] [address] Scan Report Signed Patient: Isaias Delgado#: [id number] : 1970Acct:[id number] Age/Sex: 54 / MADM Date: 11/28/24 Loc: HO.ED Attending Dr: Ordering Physician: Trudy Brannon Date of Service: 11/29/24 Procedure(s): CT abdomen pelvis w IV con Accession Number(s): [id number] cc: Trudy Brannon; [facility] Report Number: [id number]: Total DLP = 512.00 mGy-cm CLINICAL HISTORY: pain, fever CT abdomen and pelvis with contrast Comparison: None Findings: Evaluation of the lung bases is limited by significant respiratory motion. Please see separately reported CT chest with contrast report. The liver is enlarged demonstrating contour nodularity and lobar redistribution. No discrete lesion. The spleen is also enlarged. Cholelithiasis without biliary ductal dilation. Pancreas, adrenal glands and kidneys demonstrate no acute findings. Moderately distended stomach. Small bowel and colon demonstrate no acute findings. Exam is markedly motion degraded limiting evaluation of the bowel wall. Pelvic contents unremarkable. Appendix not definitively identified. Small volume ascites. Nonaneurysmal aorta. Portal vein is patent. Large portosystemic collaterals in the left upper quadrant including large paraesophageal varices. No adenopathy. No acute fracture. IMPRESSION: Markedly motion degraded exam. Morphologic changes of chronic liver disease with hepatosplenomegaly, small volume ascites enlarged portosystemic collaterals including large paraesophageal varices. Cholelithiasis without acute cholecystitis. This document has been electronically signed by: Mary Rogers MD on 11/29/2024 05:14:13 Dictated By: Mary Rogers MD Signed By: <Electronically signed by Mary Rogers MD in OV> 11/29/24 0515 DD/ 0514 TD/TT: 11/29/24 0514 Swedger: [facility] [place] External Provider IMG CT PROCEDURES Edited Result - Final documented in this encounter Visit Diagnoses Not on filedocumented in this encounter
--- OUTSIDE RECORDS SUMMARY | 2024-12-07 19:03 | XMS_ITS | Encounter Summary ---
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 Name Role Phone Unavailable Primary Care Provider Unavailabl e Encounter Details Date Type Department Care Team (Late st Contact Info) Description 11/27/2024 Orders Only GENERIC EXTERNAL DATA DEPARTMENT Provider, Generic External Data Social History Tobacco Use Types Packs/Day Years [...] Procedure Name Priority Date/Time Associated Diagnosis Comments AMMONIA (P) Routine 11/27/2024 3:08 PM EST ETHANOL Routine 11/27/2024 3:05 PM EST CBC WITH AUTO DIFFERENTIAL Routine 11/27/2024 3:05 PM EST COMPREHENSIVE METABOLIC PANEL Routine 11/27/2024 3:05 PM EST XR FOOT 3+ VIEWS RIGHT Routine 2:55 PM EST XR FOOT 3+ VIEWS LEFT Routine 11/27/2024 2:55 PM EST XR ANKLE 3+ VIEWS RIGHT Routine 11/27/2024 2:55 PM EST XR ANKLE 3+ VIEWS LEFT Routine 2:55 PM EST documented in this encounter Results * (ABNORMAL) Ammonia, Plasma (11/27/2024 3:08 PM EST) Ammonia (P) 70(H) 13 - 55 umol/L [facility] Comment:Slight Hemolysis.Int erpret result with caution. 11/27/2024 3:08 PM EST 11/27/2024 3:12 PM EST Generic External Data Provider LAB BLOOD ORDERAB LES Final Result Performing Organization Address [facility]/ZIP Co de Phone Number [facility] [address] [place] [phone] * (ABNORMAL) Ethanol (11/27/2024 3:05 PM EST) Pathologist [facility] ETHANOL (MG/DL) IN SER/PLAS 316(HH) mg/dL [facility] Comment:Serum/plasma ethanol results are to be used formedical/treatment purposes only. 11/27/2024 3:05 PM EST 11/27/2024 3:12 PM EST Generic External Data Provider LAB BLOOD ORDERAB LES Final Result Performing Organization Address [facility] de Phone Number [facility] [address] [place] [phone] * (ABNORMAL) Comprehensive Metabolic Panel (11/27/2024 3:05 PM EST) Pathologist [facility] Sodium 141 135 - 145 mmol/L [facility] Potassium 3.6 3.3 - 5.1 mmol/L [facility] Chloride 107 96 - 108 mmol/L [facility] Carbon Dioxide 21(L) 22 - 29 mmol/L [facility] Anion Gap 17 12 - 20 [facility] Urea Nitrogen (BUN) 16 9 - 16 mg/dL [facility] Creatinine, Serum 0.79 0.5 - 1.4 mg/dL [facility] Creatinine Clr Calc Pharmacy 81.3 [facility] Comment:eGFR (calculated fro m the MDRD study equation) and eCrCl(calculated from the Cockcroft-Gault equation) are based ondifferent parameters and may not yield comparable results.If eCrCl result is absurd, please check patient'sheight/weight. Estimated Glomerular Filt Rate >60 [facility] Comment:Chronic Kidney Disea se: Estimated GFR < 60 mL/min/1.23r5Orttox Kidney Disease: Estimated GFR < 15 mL/min/1.73m2 Glucose 145(H) 60 - 115 mg/dL [facility] Calcium 9.4 8.4 - 10.2 mg/dL [facility] Bilirubin, Total 1.4(H) 0.0 - 1.0 mg/dL [facility] Aspartate Amino Transferase 60(H) 5 - 37 U/L [facility] Alanine Aminotransferase 33 0 - 40 U/L [facility] Total Protein 9.3(H) 6.5 - 8.0 g/dL [facility] Albumin Level 4.3 3.5 - 5.0 g/dL [facility] Alkaline Phosphatase 155(H) 39 - 117 U/L [facility] 11/27/2024 3:05 PM EST 11/27/2024 3:12 PM EST us Generic External Data Provider LAB BLOOD ORDERAB LES Final Result [facility] [address] [place] [phone] * (ABNORMAL) CBC auto differential (11/27/2024 3:05 PM EST) White Blood Count 5.6 4.8 - 10.8 X10*3/uL [facility] Red Blood Count 2.74(L) 4.60 - 5.80 X10*6/uL [facility] Hemoglobin 9.2(L) 14.0 - 18.0 g/dl [facility] Hematocrit 27.9(L) 42.0 - 52.0 % [facility] Mean Corpuscular Volume 101.8(H) 80.0 - 98.0 fL [facility] Mean Corpuscular Hemoglobin 33.6(H) 27.0 - 33.0 pg [facility] Mean Corpuscular HGB Conc 33.0 31.0 - 36.0 g/dl [facility] Red Cell Distribution Width 14.6 11.0 - 16.0 % [facility] Platelet Count 55(L) 160 - 400 X10*3/uL [facility] Mean Platelet Volume 12.2 9.4 - 12.4 fL [facility] Neutrophils Percent Auto 89.7(H) 45 - 73 % [facility] Imm Gran Pct Auto 0.4 0.0 - 0.4 % [facility] Lymphocytes Percent Auto 5.7(L) 20 - 40 % [facility] Monocytes Percent Auto 3.6 2 - 11 % [facility] Eosinophils Percent Auto 0.2 0 - 4 % [facility] Basophils Percent Auto 0.4 0 - 2 % [facility] NRBC Pct Auto 0.0 0.0 - 0.2 /100WBC [facility] Neutrophils Absolute Auto 5.1 2.0 - 8.3 x10*3/uL [facility] Imm Gran Abs Auto 0.02 0.00 - 0.03 X10*3/uL [facility] Lymphocytes Absolute Auto 0.3(L) 1.2 - 4.9 X10*3/uL [facility] Monocytes Absolute Auto 0.2 0.1 - 1.2 X10*3/uL [facility] Eosinophils Absolute Auto 0.0 0.0 - 0.4 X10*3/uL [facility] Basophils Absolute Auto 0.0 0.0 - 0.2 X10*3/uL [facility] NRBC Abs Auto 0.000 0.0 - 0.012 X10*3/uL [facility] 11/27/2024 3:05 PM EST 11/27/2024 3:12 PM EST us Generic External Data Provider LAB BLOOD ORDERAB LES Final Result [facility] [address] [place], [place] [address], [place] [phone] * XR Foot 3+ Views Left (11/27/2024 2:55 PM EST) Anatomical Region Laterality Modality Lower Extremities, Foot Left Radiogra phic Imaging 11/27/2024 2:55 PM EST Narrative 11/27/2024 3:58 PM EST ? [facility] ?[address] ?[place] [address] ?XRay Report ? Signed ? Patient: Delgado,Charbel ?MR#: [id number] ? : 1970 ?Acct:[id number] ? Age/Sex: 54 / M ?ADM Date: 11/27/24 ? Loc: HO.ED ? Attending Dr: ? Ordering Physician: Bautista Gomes DO ?? Date of Service: 11/27/24 ?? Procedure(s): XR foot LT min 3V ?? Accession Number(s): [id number] ? cc: [facility]; Bautista Gomes DO ? EXAMINATION: ?? XR FOOT, LEFT ? CLINICAL INFORMATION: ?? foot and ankle pain when walking ? COMPARISON: ?? None available. ? TECHNIQUE: ?? AP, lateral, and oblique views of the left foot. ? FINDINGS: ?? Hallux valgus deformity first metatarsophalangeal joint. Degenerative ?? changes in the tarsal bones. No acute cortical disruption or gross ?? malalignment. Osteopenia versus osteoporosis. ?? No subcutaneous emphysema. ?? Vascular calcifications. ? XR/XR foot LT min 3V ?? IMPRESSION: ?? No acute fracture or dislocation. ?? Hallux valgus deformity first metatarsophalangeal joint. ?? Atherosclerosis disease, peripheral. ? Electronically signed by: ??Eric Steele MD ??11/27/2024 03:55 PM ?? EST RP ? Dictated By: ?Eric Nobles MD ? Signed By: ?<Electronically signed by Eric Kwon MD in OV> ? 11/27/24 1555 ? DD/ 1455 ? TD/TT: 11/27/24 1542 ? Head Of Mathematics: ? Procedure Note Moy, Image - 11/27/[address] [address] XRay Report Signed Patient: Isaias Delgado#: [id number] : 1970Acct:[id number] Age/Sex: 54 / MADM Date: 11/27/24 Loc: HO.ED Attending Dr: Ordering Physician: Bautista Gomes DO Date of Service: 11/27/24 Procedure(s): XR foot LT min 3V Accession Number(s): [id number] cc: [facility]; Bautista Gomes DO EXAMINATION: XR FOOT, LEFT CLINICAL INFORMATION: foot and ankle pain when walking COMPARISON: None available. TECHNIQUE: AP, lateral, and oblique views of the left foot. FINDINGS: Hallux valgus deformity first metatarsophalangeal joint. Degenerative changes in the tarsal bones. No acute cortical disruption or gross malalignment. Osteopenia versus osteoporosis. No subcutaneous emphysema. Vascular calcifications. XR/XR foot LT min 3V IMPRESSION: No acute fracture or dislocation. Hallux valgus deformity first metatarsophalangeal joint. Atherosclerosis disease, peripheral. Electronically signed by: Eric Steele MD 11/27/2024 03:55 PM EST Dictated By: Eric Nobles MD Signed By: <Electronically signed by Eric Kwon MDin OV> 11/27/24 1555 DD/ 1455 TD/TT: 11/27/24 1542 Head Of Mathematics: [facility] External Provider IMG XR PROCEDURES Final Result * XR Ankle 3+ Views Left (11/27/2024 2:55 PM EST) Anatomical Region Laterality Modality Lower Extremities, Ankle Left Radiogr aphic Imaging 11/27/2024 2:55 PM EST Narrative 11/27/2024 3:56 PM EST ? [facility] ?[address] ?[place] [address] ?XRay Report ? Signed ? Patient: Delgado,Charbel ?MR#: [id number] ? : 1970 ?Acct:[id number] ? Age/Sex: 54 / M ?ADM Date: 11/27/24 ? Loc: HO.ED ? Attending Dr: ? Ordering Physician: Bautista Gomes DO ?? Date of Service: 11/27/24 ?? Procedure(s): XR ankle LT min 3V ?? Accession Number(s): [id number] ? cc: [facility]; Bautista Gomes DO ? EXAMINATION: ?? XR ANKLE, LEFT ? CLINICAL INFORMATION: ?? foot and ankle pain when walking ? COMPARISON: ?? None available. ? TECHNIQUE: ?? AP, lateral, and mortise views of the left ankle. ? FINDINGS: ?? No acute cortical disruption or malalignment. ?? Edema pattern in the lateral malleolus. ?? No subcutaneous emphysema. ?? Vascular calcifications. ?? Osteopenia versus osteoporosis. ? XR/XR ankle LT min 3V ?? IMPRESSION: ?? No acute fracture or dislocation. ?? Edema pattern, lateral malleolus. ?? Peripheral arterial disease. ? Electronically signed by: ??Eric Steele MD ??11/27/2024 03:53 PM ?? EST RP ? Dictated By: ?Eric Nobles MD ? Signed By: ?<Electronically signed by Eric Steele Doyle, MD in OV> ? 11/27/24 1553 ? DD/ 1455 ? TD/TT: 11/27/24 1542 ? Head Of Mathematics: ? Procedure Note Renato Winter - 11/27/[address] [address] XRay Report Signed Patient: Isaias Delgado#: [id number] : 1970Acct:[id number] Age/Sex: 54 / MADM Date: 11/27/24 Loc: HO.ED Attending Dr: Ordering Physician: Bautista Gomes DO Date of Service: 11/27/24 Procedure(s): XR ankle LT min 3V Accession Number(s): [id number] cc: [facility]; Bautista Gomes DO EXAMINATION: XR ANKLE, LEFT CLINICAL INFORMATION: foot and ankle pain when walking COMPARISON: None available. TECHNIQUE: AP, lateral, and mortise views of the left ankle. FINDINGS: No acute cortical disruption or malalignment. Edema pattern in the lateral malleolus. No subcutaneous emphysema. Vascular calcifications. Osteopenia versus osteoporosis. XR/XR ankle LT min 3V IMPRESSION: No acute fracture or dislocation. Edema pattern, lateral malleolus. Peripheral arterial disease. Electronically signed by: Eric Steele MD 11/27/2024 03:53 PM EST RP Dictated By: Eric Nobles MD Signed By: <Electronically signed by Eric Kwon MDin OV> 11/27/24 1553 DD/ 1455 TD/TT: 11/27/24 1542 Head Of Mathematics: [facility] External Provider IMG XR PROCEDURES Final Result * XR Ankle 3+ Views Right (11/27/2024 2:55 PM EST) Anatomical Region Laterality Modality Lower Extremities, Ankle Right Radiogr aphic Imaging 11/27/2024 2:55 PM EST Narrative 11/27/2024 3:55 PM EST ? [facility] ?[address] ?[place] [address] ?XRay Report ? Signed ? Patient: Delgado,Charbel ?MR#: [id number] ? : 1970 ?Acct:[id number] ? Age/Sex: 54 / M ?ADM Date: 11/27/24 ? Loc: HO.ED ? Attending Dr: ? Ordering Physician: Bautista Gomes DO ?? Date of Service: 11/27/24 ?? Procedure(s): XR ankle RT min 3V ?? Accession Number(s): [id number] ? cc: [facility]; Bautista Gomes DO ? EXAMINATION: ?? XR ANKLE, RIGHT ? CLINICAL INFORMATION: ?? foot and ankle pain when walking ? COMPARISON: ?? None available. ? TECHNIQUE: ?? AP, lateral, and mortise views of the right ankle. ? FINDINGS: ?? Old traumatic deformity of the inferior aspect lateral malleolus. No ?? acute cortical disruption or malalignment. Edema pattern in the soft ?? tissues, bimalleolar more conspicuous on the lateral malleolus. No ?? subcutaneous emphysema. ?? Atherosclerosis disease. ? XR/XR ankle RT min 3V ?? IMPRESSION: ?? No acute fracture or dislocation. ?? Peripheral arterial disease. ? Electronically signed by: ??Eric Steele MD ??11/27/2024 03:52 PM ?? EST RP ? Dictated By: ?Eric Nobles MD ? Signed By: ?<Electronically signed by Eric Kwon MD in OV> ? 11/27/24 1552 ? DD/ 1455 ? TD/TT: 11/27/24 1542 ? Head Of Mathematics: ? Procedure Note Moy, Image - 11/27/2024 [place] [address] XRay Report Signed Patient: Isaias Delgado#: [id number] : 1970Acct:[id number] Age/Sex: 54 / MADM Date: 11/27/24 Loc: HO.ED Attending Dr: Ordering Physician: Bautista Gomes DO Date of Service: 11/27/24 Procedure(s): XR ankle RT min 3V Accession Number(s): [id number] cc: [facility]; Bautista Gomes DO EXAMINATION: XR ANKLE, RIGHT CLINICAL INFORMATION: foot and ankle pain when walking COMPARISON: None available. TECHNIQUE: AP, lateral, and mortise views of the right ankle. FINDINGS: Old traumatic deformity of the inferior aspect lateral malleolus. No acute cortical disruption or malalignment. Edema pattern in the soft tissues, bimalleolar more conspicuous on the lateral malleolus. No subcutaneous emphysema. Atherosclerosis disease. XR/XR ankle RT min 3V IMPRESSION: No acute fracture or dislocation. Peripheral arterial disease. Electronically signed by: Eric Steele MD 11/27/2024 03:52 PM EST Dictated By: Eric Nobles MD Signed By: <Electronically signed by Rae Fernandez OV> 11/27/24 1552 DD/ 1455 TD/TT: 11/27/24 1542 Head Of Mathematics: [facility] External Provider IMG XR PROCEDURES Final Result * XR Foot 3+ Views Right (11/27/2024 2:55 PM EST) Anatomical Region Laterality Modality Lower Extremities, Foot Right Radiogra phic Imaging 11/27/2024 2:55 PM EST Narrative 11/27/2024 3:52 PM EST ? [facility] ?[address] ?[place] [address] ?XRay Report ? Signed ? Patient: Delgado,Charbel ?MR#: [id number] ? : 1970 ?Acct:[id number] ? Age/Sex: 54 / M ?ADM Date: 11/27/24 ? Loc: HO.ED ? Attending Dr: ? Ordering Physician: Bautista Gomes DO ?? Date of Service: 11/27/24 ?? Procedure(s): XR foot RT min 3V ?? Accession Number(s): [id number] ? cc: [facility]; Bautista Gomes DO ? EXAMINATION: ?? XR FOOT, RIGHT ? CLINICAL INFORMATION: ?? foot and ankle pain when walking ? COMPARISON: ?? None available. ? TECHNIQUE: ?? AP, lateral, and oblique views of the right foot. ? FINDINGS: ?? Hallux valgus deformity first metatarsophalangeal joint. Osteopenia ?? versus osteoporosis. No acute cortical disruption or gross malalignment. ?? Vascular calcifications. ?? No subcutaneous emphysema. ? XR/XR foot RT min 3V ?? IMPRESSION: ?? Hallux valgus extent deformity, first metatarsophalangeal joint. ?? Osteopenia versus osteoporosis. ?? Peripheral arterial disease. ?? No acute fracture or dislocation. ? Electronically signed by: ??Eric Steele MD ??11/27/2024 03:50 PM ?? EST RP ? Dictated By: ?Eric Nobles MD ? Signed By: ?<Electronically signed by Eric Kwon MD in OV> ? 11/27/24 1550 ? DD/ 1455 ? TD/TT: 11/27/24 1542 ? Head Of Mathematics: ? Procedure Note [place], Image - 11/27/[address] [address] XRay Report Signed Patient: Isaias Delgado#: [id number] : 1970Acct:[id number] Age/Sex: 54 / MADM Date: 11/27/24 Loc: HO.ED Attending Dr: Ordering Physician: Bautista Gomes DO Date of Service: 11/27/24 Procedure(s): XR foot RT min 3V Accession Number(s): [id number] cc: [facility]; Bautista Gomes DO EXAMINATION: XR FOOT, RIGHT CLINICAL INFORMATION: foot and ankle pain when walking COMPARISON: None available. TECHNIQUE: AP, lateral, and oblique views of the right foot. FINDINGS: Hallux valgus deformity first metatarsophalangeal joint. Osteopenia versus osteoporosis. No acute cortical disruption or gross malalignment. Vascular calcifications. No subcutaneous emphysema. XR/XR foot RT min 3V IMPRESSION: Hallux valgus extent deformity, first metatarsophalangeal joint. Osteopenia versus osteoporosis. Peripheral arterial disease. No acute fracture or dislocation. Electronically signed by: Eric Steele MD 11/27/2024 03:50 PM [facility] Dictated By: Eric Nobles MD Signed By: <Electronically signed by Eric Kwon MDin OV> 11/27/24 1550 DD/ 1455 TD/TT: 11/27/24 1542 Head Of Mathematics: [facility] External Provider IMG XR PROCEDURES Final Result documented in this encounter Visit Diagnoses Not on filedocumented in this encounter
--- OUTSIDE RECORDS SUMMARY | 2024-12-07 19:03 | XMS_ITS | Encounter Summary ---
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 Name Role Phone Unavailable Primary Care Provider Unavailabl e Encounter Details Date Type Department Care Team (Late st Contact Info) Description 11/29/2024 Orders Only GENERIC EXTERNAL DATA DEPARTMENT Provider, [...] as of this encounter Plan of Treatment Pending Results Name Type Priority Associated Diagnoses Date /Time Type and screen Lab Routine 3:39 AM EST Red blood count Lab Routine 3:39 AM EST documented as of this encounter Procedures Procedure Name Priority Date/Time Associated Diagnosis Comments CT HEAD WO CONTRAST Routine 11/30/2024 2 :14 AM EST RED BLOOD COUNT Routine 11/29/2024 3:39 AM EST TYPE AND SCREEN Routine 11/29/2024 3:39 AM EST LACTIC ACID Routine 11/29/2024 3:39 AM EST ETHANOL Routine 11/29/2024 2:29 AM EST SARS COV2/INFLUENZA A/B AND RSV RNA QL NAAT Routine 11/29/2024 2:29 AM EST CBC WITH AUTO DIFFERENTIAL Routine 11/29/2024 2:29 AM EST MAGNESIUM Routine 11/29/2024 2:29 AM EST LIPASE Routine 11/29/2024 2:29 AM EST COMPREHENSIVE METABOLIC PANEL Routine 11/29/2024 2:29 AM EST documented in this encounter Results * CT Head w/o Contrast (11/30/2024 2:14 AM EST) Anatomical Region Laterality Modality Head, Neck Computed Tomogra phy 11/30/2024 2:14 AM EST Narrative 11/30/2024 2:17 AM EST ? [facility] ?[address] ?[place] [address] ? CT Scan Report ? Signed ? Patient: Charbel Delgado ?MR#: [id number] ? : 1970 ?Acct:[id number] ? Age/Sex: 54 / M ?ADM Date: 11/29/24 ? Loc: HO.[facility]C ?474-1 ? Attending Dr: Yazmin WALLACE ? Ordering Physician: Yazmin Shafer ?? Date of Service: 11/30/24 ?? Procedure(s): CT head/brain wo IV con ?? Accession Number(s): [id number] ? cc: Yazmin Shafer; [facility] ? Report Number: ?? [id number]: Total DLP = ??643.00 mGy-cm ? CLINICAL HISTORY: AMS ? CT head without contrast ? Comparison: CT/SR - CT HEAD/BRAIN WO IV CON - 11/20/24 15:13 EST ? Findings: ?? Motion and streak artifact limit evaluation. ?? Scattered subcortical and periventricular hypoattenuation, likely in ?? keeping with chronic small vessel ischemic disease. Parenchymal volume ?? loss with compensatory prominence of the ventricles and CSF spaces. No ?? acute territorial infarction, intracranial hemorrhage, midline shift or ?? hydrocephalus. ?? No significant atrophy-like change or white matter disease. ? There is no sinus or mastoid fluid. ?? The orbits are within normal limits. ?? There is no acute fracture. ? IMPRESSION: ?? Motion degraded exam. ?? Grossly no acute intracranial abnormality. ? This document has been electronically signed by: Randal Mendoza MD on ?? 11/30/2024 02:14:27 ? Dictated By: ?Randal Mendoza MD ? Signed By: ?<Electronically signed by Randal Mendoza MD in OV> ?11/30/24214 ? DD/ 3 ? TD/TT: 11/30/24213 ? [employer]ator: ? Procedure Note Donotuseinterpreter, Image - 11/30/[address] [place] [address] [address] Scan Report Signed Patient: Isaias Delgado#: [id number] : 1970Acct:[id number] Age/Sex: 54 / MADM Date: 11/29/24 Loc: [facility] 474-[address]: Yazmin WALLACE Ordering Physician: Yazmin Shafer Date of Service: 11/30/24 Procedure(s): CT head/brain wo IV con Accession Number(s): [id number] cc: Yazmin Shafer; [facility] Report Number: [id number]: Total DLP = 643.00 mGy-cm CLINICAL HISTORY: AMS CT head without contrast Comparison: CT/SR - CT HEAD/BRAIN WO IV CON - 11/20/24 15:13 EST Findings: Motion and streak artifact limit evaluation. Scattered subcortical and periventricular hypoattenuation, likely in keeping with chronic small vessel ischemic disease. Parenchymal volume loss with compensatory prominence of the ventricles and CSF spaces. No acute territorial infarction, intracranial hemorrhage, midline shift or hydrocephalus. No significant atrophy-like change or white matter disease. There is no sinus or mastoid fluid. The orbits are within normal limits. There is no acute fracture. IMPRESSION: Motion degraded exam. Grossly no acute intracranial abnormality. This document has been electronically signed by: Randal Mendoza MD on 11/30/2024 02:14:27 Dictated By: Randal Mendoza MD Signed By: <Electronically signed by Randal Mendoza MD in OV> 11/30/24214 DD/ 3 TD/TT: 11/30/24213 Can[employer] Goods Fab[employer]ator: [facility] External Provider IMG CT PROCEDURES Final Result * Lactic Acid (11/29/2024 3:39 AM EST) Lactic Acid 1.1 0.5 - 2.0 mmol/L [facility] 11/29/2024 3:39 AM EST 11/29/2024 3:44 AM EST Generic External Data Provider LAB BLOOD ORDERAB LES Final Result Performing Organization Address [facility] Co de Phone Number [facility] [address] [place] [phone] * SARS-CoV-2 RNA, Influenza A/B, and RSV RNA, Ql NAAT (11/29/2024 2:29 AM EST) [facility] Influenza A PCR NEGATIVE Negative [facility] Influenza B PCR NEGATIVE Negative [facility] Resp Syncy Virus RNA Qual PCR NEGATIVE Negative [facility] SARS COV2 PCR NEGATIVE Negative [facility] Comment:All test results mus t be correlated with clinical findings.Negative results do not preclude SARS-CoV2, influenza Avirus, influenza B virus and/or RSV infectionand should not be used as the sole basis for treatment orother patient management decisions. Negative results must becombined with clinical observations, patient history, andepidemiological information.This test has not been evaluated for monitoring treatment ofinfection.This test has been authorized by the FDA under an EmergencyUse Authorization (EUA) for use by authorized laboratories.Testing performed on the Topio GeneXpert utilizingreal-time RT-PCR.All SARS CoV2 and positive influenza A/B results arereported to [facility]. 11/29/2024 2:29 AM EST 11/29/2024 2:33 AM EST Generic External Data Provider LAB MICROBIOLOGY - GENERAL ORDERABLES Final Result Performing Organization Address [facility]/ZIP Co de Phone Number [facility] [address] [place] [address] [phone] * (ABNORMAL) Magnesium (11/29/2024 2:29 AM EST) Pathologist [facility] Magnesium 1.4(LL) 1.6 - 2.6 mg/dL [facility] Comment:Critical value for t est(s):MAGNESIUM Results called to gildardo back by:ALIA Person calling:ALEate:11/29/24 Time:0302 11/29/2024 2:29 AM EST 11/29/2024 2:33 AM EST Generic External Data Provider LAB BLOOD ORDERAB LES Final Result Performing Organization Address [facility] Co de Phone Number [facility] [address] [place] [phone] * Ethanol (11/29/2024 2:29 AM EST) [facility] ETHANOL (MG/DL) IN SER/PLAS <10 mg/dL [facility] Comment:Serum/plasma ethanol results are to be used formedical/treatment purposes only. 11/29/2024 2:29 AM EST 11/29/2024 2:33 AM EST Generic External Data Provider LAB BLOOD ORDERAB LES Final Result Performing Organization Address [facility] de Phone Number [facility] [address] [place] [address] [phone] * Lipase (11/29/2024 2:29 AM EST) [facility] Lipase 45 8 - 78 U/L [facility] 11/29/2024 2:29 AM EST 11/29/2024 2:33 AM EST Generic External Data Provider LAB BLOOD ORDERAB LES Final Result Performing Organization Address [facility] Phone Number [facility] [address] [place] [address] [phone] * (ABNORMAL) Comprehensive Metabolic Panel (11/29/2024 2:29 AM EST) Sodium 138 135 - 145 mmol/L [facility] Potassium 3.7 3.3 - 5.1 mmol/L [facility] Chloride 105 96 - 108 mmol/L [facility] Carbon Dioxide 23 22 - 29 mmol/L [facility] Anion Gap 14 12 - 20 [facility] Urea Nitrogen (BUN) 29(H) 9 - 16 mg/dL [facility] Creatinine, Serum 0.73 0.5 - 1.4 mg/dL [facility] Creatinine Clr Calc Pharmacy 92.8 [facility] Comment:eGFR (calculated fro m the MDRD study equation) and eCrCl(calculated from the Cockcroft-Gault equation) are based ondifferent parameters and may not yield comparable results.If eCrCl result is absurd, please check patient'sheight/weight. Estimated Glomerular Filt Rate >60 [facility] Comment:Chronic Kidney Disea se: Estimated GFR < 60 mL/min/1.47m7Twzcxa Kidney Disease: Estimated GFR < 15 mL/min/1.73m2 Glucose 116(H) 60 - 115 mg/dL [facility] Calcium 8.7 8.4 - 10.2 mg/dL [facility] Bilirubin, Total 1.8(H) 0.0 - 1.0 mg/dL [facility] Comment:Slight Icterus. Aspartate Amino Transferase 47(H) 5 - 37 U/L [facility] Alanine Aminotransferase 19 0 - 40 U/L [facility] Total Protein 7.2 6.5 - 8.0 g/dL [facility] Albumin Level 3.3(L) 3.5 - 5.0 g/dL [facility] Alkaline Phosphatase 180(H) 39 - 117 U/L [facility] 11/29/2024 2:29 AM EST 11/29/2024 2:33 AM EST us Generic External Data Provider LAB BLOOD ORDERAB LES Final Result [facility] [address] [place] [address] [phone] * (ABNORMAL) CBC auto differential (11/29/2024 2:29 AM EST) White Blood Count 5.5 4.8 - 10.8 X10*3/uL [facility] Red Blood Count 2.26(L) 4.60 - 5.80 X10*6/uL [facility] Hemoglobin 7.5(L) 14.0 - 18.0 g/dl [facility] Hematocrit 22.2(L) 42.0 - 52.0 % [facility] Mean Corpuscular Volume 98.2(H) 80.0 - 98.0 fL [facility] Mean Corpuscular Hemoglobin 33.2(H) 27.0 - 33.0 pg [facility] Mean Corpuscular HGB Conc 33.8 31.0 - 36.0 g/dl [facility] Red Cell Distribution Width 14.4 11.0 - 16.0 % [facility] Platelet Count 33(L) 160 - 400 X10*3/uL [facility] Mean Platelet Volume 11.9 9.4 - 12.4 fL [facility] Neutrophils Percent Auto 86.7(H) 45 - 73 % [facility] Imm Gran Pct Auto 0.4 0.0 - 0.4 % [facility] Lymphocytes Percent Auto 5.9(L) 20 - 40 % [facility] Monocytes Percent Auto 4.8 2 - 11 % [facility] Eosinophils Percent Auto 2.0 0 - 4 % [facility] Basophils Percent Auto 0.2 0 - 2 % [facility] NRBC Pct Auto 0.0 0.0 - 0.2 /100WBC [facility] Neutrophils Absolute Auto 4.8 2.0 - 8.3 x10*3/uL [facility] Imm Gran Abs Auto 0.02 0.00 - 0.03 X10*3/uL [facility] Lymphocytes Absolute Auto 0.3(L) 1.2 - 4.9 X10*3/uL [facility] Monocytes Absolute Auto 0.3 0.1 - 1.2 X10*3/uL [facility] Eosinophils Absolute Auto 0.1 0.0 - 0.4 X10*3/uL [facility] Basophils Absolute Auto 0.0 0.0 - 0.2 X10*3/uL [facility] NRBC Abs Auto 0.000 0.0 - 0.012 X10*3/uL [facility] 11/29/2024 2:29 AM EST 11/29/2024 2:33 AM EST us Generic External Data Provider LAB BLOOD ORDERAB LES Final Result [facility] [address] [place] [phone] documented in this encounter Visit Diagnoses Not on filedocumented in this encounter
--- NOTE | 2024-12-07 21:01 | ED.GENADULT ---
HPI - General Adult General Chief complaint: Extremity Injury, Lower Stated complaint: back pain Time Seen by Provider: 12/07/24 20:23 Source: patient, RN notes reviewed and old records reviewed Mode of arrival: EMS Limitations: no limitations History of Present Illness ED Provider: Chapis VIVAR narrative: 54-year-old male with a history of alcohol abuse, esophageal varices presents for evaluation of ?they sent me here from the liquor store. ? Patient complains of left ankle pain. He does have a chronic deformity of the left lateral malleolus. His most recent x-ray was 11/27/2024. The patient denies any recent injury but states he has been walking a lot. He was discharged from this facility a few days ago due to nosebleed an upper GI bleed. He had an EGD done and it was recommended a repeat EGD in 4 weeks. The patient denies any further nosebleeds since his discharge. Per EMS report, the patient was brought here because the long term closed and he was intoxicated The patient admits to drinking alcohol and reports that he drinks every day Related Data Previous Rx's ?Medication ?Instructions ?Recorded folic acid 1 mg tablet 1 mg PO DAILY #90 tabs 11/15/24 furosemide 20 mg tablet 20 mg PO DAILY #90 tabs 11/15/24 magnesium oxide 400 mg (241.3 mg 400 mg PO BIDPC #180 tabs 11/15/24 magnesium) tablet midodrine 5 mg tablet 5 mg PO TID #180 tabs 11/15/24 omeprazole 20 mg capsule,delayed 20 mg PO BID@0630,1630 #60 caps 11/15/24 release thiamine mononitrate (vit B1) 100 100 mg PO DAILY #90 tabs 11/15/24 mg tablet fluconazole 100 mg tablet 100 mg PO DAILY #10 tabs 12/04/24 sucralfate 1 gram tablet 1 g PO BIDAC #60 tabs 12/04/24 Allergies Allergy/AdvReac Type Severity Reaction Status Date / Time No Known Allergies Allergy Verified 12/07/24 18:59 [No Known Allergies*] Review of Systems Constitutional: Constitutional: Denies body ache(s), Denies chills, Denies fever(s) and Denies headache(s) Eyes: Eyes: Denies blurry vision ENT: Denies vertigo, Denies headache(s) and Denies epistaxis Cardiovascular: Cardiovascular: Denies chest pain Respiratory: Respiratory: Denies cough Gastrointestinal: Gastrointestinal: Denies abdominal pain, Denies nausea and Denies vomiting Musculoskeletal: Musculoskeletal: Reports arthralgias, Denies joint swelling and Denies limited range of motion Neurologic: Denies vertigo and Denies headache(s) [facility] Past Medical History Medical History Alcoholic liver disease Aspiration pneumonia Thrombocytopenia Malnutrition CHF (congestive heart failure) Anemia Hypomagnesemia Cirrhosis Thrombocytopenia Acute on chronic anemia CHF (congestive heart failure) Anemia Pneumonia Alcohol abuse Alcohol withdrawal syndrome Surgical History No history of previous surgery Social History Social History Household Members: Other Household Members Other:: pt homeless Housing: Homeless Housing Other:: homeless Do you presently have visiting nurse or other home services: No Unable to assess alcohol history related to: Refusing to respond Alcohol intake: current Alcohol intake frequency: 3 or more drinks per day Alcohol type: hard liquor Comment: 1 assist to bathroom Patient Tobacco Use Status: Former Tobacco user Tobacco use type: Cigarette Second Hand Smoke Exposure: No Advance Directives: Yes Advance Directives on File: Yes Advance Directives Date on File: 07/13/23 Do you have a plan to hurt others: No Plan service: No Physical Exam ED Vital Signs: Vital Signs - 24 hr 12/07/24 18:57 12/08/24 01:50 Pulse Rate 82 85 Respiratory Rate 16 16 Blood Pressure 104/55 L 109/56 L Pulse Oximetry 95 92 Oxygen Delivery Method Room Air Room Air BMI result Body Mass Index 22.3 Const General: healthy appearing, comfortable, no acute distress, alert and awake Nutritional Appearance: thin Orientation/consciousness: patient oriented x3 HENMT Head: Yes normocephalic and Yes atraumatic Eyes Eyelids: Yes eyelids normal Conjunctivae: conjunctivae normal Sclerae: sclerae normal Corneas: corneas normal Pupils: Equal, round and reactive pupils present EOM: EOMs intact bilaterally Neck Neck: Yes full ROM Resp Effort & Inspection: normal respiratory effort, able to speak in complete sentences and not labored GI Inspection: No distended Palpation (GI): Soft to palpation, not firm, nontender, no guarding and not rigid Skin General skin exam: elasticity normal Neuro General: patient oriented x3 Cranial nerves: Yes Equal, round and reactive pupils present and Yes Bilaterally intact EOM present Cognition (Neuro): normal cognition Extrem Other: Tenderness to the left lateral malleolus without deformity. No lower extremity edema Course Reevaluation(s) Reevaluation #1: The patient's workup is largely unchanged from his baseline. He has no active bleeding. He has no abdominal pain or vomiting to suggest pancreatitis. He likely has an elevated lipase due to his drinking. The patient does have chronic left knee pain the necrotic deformity, there is no indication for emergent imaging or additional intervention regarding this at this time. The patient can be discharged once clinically sober Time: 01:43 Reevaluation #2: Patient awake and alert, ambulating with a steady gait. He is clinically sober. He would like to go home. He is declining need for detox or rehab. Stable for discharge home. Time: 10:07 Medical Decision Making Medical Decision Making [facility] Narrative: 54-year-old male with frequent ED visits for alcohol abuse and a recent admission for nosebleed an upper GI bleed presents for evaluation of chronic left ankle pain. He has no recent injury, no deformity to left lower extremity. He does have a chronic distal fibula fracture. He has no active bleeding, he is mildly hypotensive and given his recent bleeding we will check repeat labs including H&H. Differential Diagnosis Differential Diagnoses: The differential diagnosis associated with the presentation includes Alcohol abuse Acute alcohol intoxication GI bleed Acute blood loss anemia Weakness RAVI Lab Data [facility] Lab Attestation statement: I reviewed the patient's lab results. Patient has pancytopenia. He has a leukopenia 2.6, he has a chronic anemia in his hemoglobin hematocrit have settled back at his baseline. He has no active bleeding. He has a thrombocytopenia of 56 which is likely due to alcoholic liver disease. Patient's electrolytes are reassuring, he has no evidence of acute renal disease. BUN to creatinine ratio is normal and not indicative of upper GI bleed. Infectious renal function is within normal limits. His LFTs are within normal limits though his lipase is elevated to 122. This is also likely due to alcoholic disease. The patient has no abdominal pain or tenderness, he is not vomiting. Not consistent with acute pancreatitis. The patient's albumin is low likely related to his drinking and malnutrition 12/07/24 20:57 12/07/24 20:57 Labs: Lab Results 12/07/24 Range/Units 20:57 WBC 2.6 L (4.8-10.8) X10*3/uL RBC 2.72 L (4.60-5.80) X10*6/uL Hgb 8.8 L (14.0-18.0) g/dl Hct 26.4 L (42.0-52.0) % MCV 97.1 (80.0-98.0) fL MCH 32.4 (27.0-33.0) pg MCHC 33.3 (31.0-36.0) g/dl RDW 16.0 (11.0-16.0) % Plt Count 56 L D (160-400) X10*3/uL MPV 12.2 (9.4-12.4) fL Immature Gran % (Auto) 1.6 H (0.0-0.4) % Neut % (Auto) 57.1 (45-73) % Lymph % (Auto) 23.4 (20-40) % [place] % (Auto) 14.8 H (2-11) % Eos % (Auto) 2.3 (0-4) % Baso % (Auto) 0.8 (0-2) % Lymph # (Auto) 0.6 L (1.2-4.9) X10*3/uL [place] # (Auto) 0.4 (0.1-1.2) X10*3/uL Eos # (Auto) 0.1 (0.0-0.4) X10*3/uL Baso # (Auto) 0.0 (0.0-0.2) X10*3/uL Abs Immat Gran (auto) 0.04 H (0.00-0.03) X10*3/uL Absolute Neuts (auto) 1.5 L (2.0-8.3) x10*3/uL Absolute Nucleated RBC 0.000 (0.0-0.012) X10*3/uL Nucleated RBC % (auto) 0.0 (0.0-0.2) /100WBC PT 19.8 H (10.9-12.4) SEC INR 1.7 H (0.9-1.1) Sodium 137 (135-145) mmol/L Potassium 3.9 (3.3-5.1) mmol/L Chloride 113 H (96-108) mmol/L Carbon Dioxide 19 L (22-29) mmol/L Anion Gap 9 L (12-20) BUN 9 (9-16) mg/dL Creatinine 0.59 (0.5-1.4) mg/dL Estim Creat Clear Calc 117.9 Estimated GFR > 60 Random Glucose 107 (60-115) mg/dL Calcium 7.9 L (8.4-10.2) mg/dL Total Bilirubin 0.6 (0.0-1.0) mg/dL AST 36 (5-37) U/L ALT 10 (0-40) U/L Alkaline Phosphatase 113 (39-117) U/L Total Protein 7.0 (6.5-8.0) g/dL Albumin 3.0 L (3.5-5.0) g/dL Lipase 122 H (8-78) U/L Ethyl Alcohol 209 mg/dL Discharge Plan Discharge Clinical Impression: Acute alcohol intoxication Patient Disposition: Home, Self-Care Instructions: Abuse of Alcohol (ED) Additional Instructions: Avoid excessive consumption of alcohol. Follow-up with your primary doctor, return for new or worsening symptoms Prescriptions: No Action midodrine 5 mg Tablet 5 mg PO TID Qty: 180 0RF furosemide 20 mg Tablet 20 mg PO DAILY Qty: 90 0RF Protocol: Hold for SBP< HOLD for SBP < : 90 omeprazole 20 mg Capsule,Delayed Release(Dr/Ec) 20 mg PO BID@0630,1630 Qty: 60 0RF folic acid 1 mg Tablet 1 mg PO DAILY Qty: 90 0RF thiamine mononitrate (vit B1) 100 mg Tablet 100 mg PO DAILY Qty: 90 0RF magnesium oxide 400 mg (241.3 mg magnesium) Tablet 400 mg PO BIDPC Qty: 180 0RF fluconazole 100 mg Tablet 100 mg PO DAILY Qty: 10 0RF sucralfate 1 gram Tablet 1 g PO BIDAC Qty: 60 0RF Print Language: Moldovan
[2024-12-07 21:03] LABS: MANUAL DIFF FLAG NO
[2024-12-07 21:06] LABS: Basophils Percent Auto 0.8 % (0-2); Eosinophils Absolute Auto 0.1 X10*3/uL (0.0-0.4); Eosinophils Percent Auto 2.3 % (0-4); Hematocrit 26.4 % (42.0-52.0); Hemoglobin 8.8 g/dl (14.0-18.0); Imm Gran Abs Auto 0.04 X10*3/uL (0.00-0.03); Imm Gran Pct Auto 1.6 % (0.0-0.4); Lymphocytes Absolute Auto 0.6 X10*3/uL (1.2-4.9); Lymphocytes Percent Auto 23.4 % (20-40); Mean Corpuscular HGB Conc 33.3 g/dl (31.0-36.0); Mean Corpuscular Hemoglobin 32.4 pg (27.0-33.0); Mean Corpuscular Volume 97.1 fL (80.0-98.0); Mean Platelet Volume 12.2 fL (9.4-12.4); Monocytes Absolute Auto 0.4 X10*3/uL (0.1-1.2); Monocytes Percent Auto 14.8 % (2-11); Neutrophils Absolute Auto 1.5 x10*3/uL (2.0-8.3); Neutrophils Percent Auto 57.1 % (45-73); Red Blood Count 2.72 X10*6/uL (4.60-5.80); White Blood Count 2.6 X10*3/uL (4.8-10.8)
[2024-12-07 21:07] LABS: Platelet Count 56 X10*3/uL (160-400)
[2024-12-07 21:10] LABS: INTERNATIONAL NORM RATIO 1.7 (0.9-1.1); Prothrombin Time 19.8 SEC (10.9-12.4)
[2024-12-07 21:21] LABS: Alanine Aminotransferase 10 U/L (0-40); Alkaline Phosphatase 113 U/L (39-117); Anion Gap 9 (12-20); Aspartate Amino Transferase 36 U/L (5-37); Bilirubin Total 0.6 mg/dL (0.0-1.0); Blood Urea Nitrogen 9 mg/dL (9-16); Calcium 7.9 mg/dL (8.4-10.2); Carbon Dioxide 19 mmol/L (22-29); Chloride 113 mmol/L (96-108); Creatinine Clr Calc Pharmacy 117.9; Estimated Glomerular Filt Rate > 60; Ethanol 209 mg/dL; Glucose Random 107 mg/dL (60-115); Lipase 122 U/L (8-78); Potassium 3.9 mmol/L (3.3-5.1); Sodium 137 mmol/L (135-145)
--- NOTE | 2024-12-07 23:22 | PC.NURSE ---
Patient ambulated to the restroom with a slow, but steady gait. Patient [facility], currently offers no complaints, plan of care ongoing.
[2024-12-08 01:50] VITALS: BP 109/56; PULSE 85; RESP 16; O2SAT 92
--- NOTE | 2024-12-08 10:07 | PC.NURSE ---
Pt ambulating in hallway with steady, independent gait; pt requesting to be DC'd; provider made aware
[2024-12-08 10:08] VITALS: BP 109/56; PULSE 85; RESP 16; TEMP 36.5; O2SAT 96
== END 2024-12-08 10:55 | disposition home or self-care (01) ==
PROVIDERS: Physician Assistant; Emergency Provider Emergency Medicine Emergency Medical Services
DX: F10.120 Alcohol abuse with intoxication, uncomplicated (principal); Y90.7 Blood alcohol level of 200-239 mg/100 ml; M25.572 Pain in left ankle and joints of left foot; D64.9 Anemia, unspecified; Z59.01 Sheltered homelessness; Z87.891 Personal history of nicotine dependence; Z79.899 Other long term (current) drug therapy
CPT/HCPCS: 36415; 80053; 80307; 83690; 85025; 85610; 99284

== ENCOUNTER 2024-12-09 04:04 | Emergency (ER) | payer MEDICAID, SELFPAY ==
[2024-12-09 04:12] VITALS: BP 122/78; BP 149/68; PULSE 61; PULSE 71; RESP 16; TEMP 36.9; O2SAT 95; O2SAT 97; BMI 20.4
--- NOTE | 2024-12-09 05:14 | ED.GENADULT ---
HPI - General Adult General Chief complaint: Extremity Problem Stated complaint: L KNEE PAIN/ETOH Time Seen by Provider: 12/09/24 04:39 Source: patient Mode of arrival: ambulatory Limitations: no limitations History of Present Illness ED Provider: HPI narrative: Patient alcoholic homeless comes here with chronic left leg pain no recent injury comes here to sleep had beer 16 ozx2 no fall Related Data Previous Rx's ?Medication ?Instructions ?Recorded folic acid 1 mg tablet 1 mg PO DAILY #90 tabs 11/15/24 furosemide 20 mg tablet 20 mg PO DAILY #90 tabs 11/15/24 magnesium oxide 400 mg (241.3 mg 400 mg PO BIDPC #180 tabs 11/15/24 magnesium) tablet midodrine 5 mg tablet 5 mg PO TID #180 tabs 11/15/24 omeprazole 20 mg capsule,delayed 20 mg PO BID@0630,1630 #60 caps 11/15/24 release thiamine mononitrate (vit B1) 100 100 mg PO DAILY #90 tabs 11/15/24 mg tablet fluconazole 100 mg tablet 100 mg PO DAILY #10 tabs 12/04/24 sucralfate 1 gram tablet 1 g PO BIDAC #60 tabs 12/04/24 Allergies Allergy/AdvReac Type Severity Reaction Status Date / Time No Known Allergies Allergy Verified 12/09/24 04:13 [No Known Allergies*] Review of Systems Review of Systems: Yes all other systems are reviewed and are negative PMFSH Past Medical History Medical History Alcohol abuse Thrombocytopenia Esophageal varices Alcohol use disorder Acute on chronic anemia Alcoholic liver disease Aspiration pneumonia Thrombocytopenia Malnutrition CHF (congestive heart failure) Anemia Hypomagnesemia Cirrhosis Thrombocytopenia Acute on chronic anemia CHF (congestive heart failure) Anemia Pneumonia Alcohol abuse Alcohol withdrawal syndrome Surgical History No history of previous surgery Social History Social History Household Members: Other Household Members Other:: pt homeless Housing: Homeless Housing Other:: homeless Do you presently have visiting nurse or other home services: No Unable to assess alcohol history related to: Refusing to respond Alcohol intake: current Alcohol intake frequency: 3 or more drinks per day Alcohol type: hard liquor Comment: 1 assist to bathroom Patient Tobacco Use Status: Former Tobacco user Tobacco use type: Cigarette Second Hand Smoke Exposure: No Use of substances other than those prescribed or required for medical reasons: No Advance Directives: Yes Advance Directives on File: Yes Advance Directives Date on File: 07/13/23 Do you have a plan to hurt others: No Plan service: No Physical Exam ED Vital Signs: Vital Signs - 24 hr 12/09/24 04:12 Temperature 98.4 F Pulse Rate 61 Respiratory Rate 16 Blood Pressure 149/68 H Pulse Oximetry 95 Oxygen Delivery Method Room Air BMI result Body Mass Index 20.4 Appearance: Alert. Oriented X3. No acute distress. Intoxicated Eyes: PERRLA, No Nystagmus ENT: Pharynx normal. Oral Mucosa moist Neck: Normal inspection. Neck supple. CVS: Normal heart rate and rhythm. Pulses normal. Respiratory: No respiratory distress. Equal air entry bilateral, no wheezing/rales/rhonchi Abdomen: Soft and nontender. Bowel sounds are present, no mass palpable, no CVA tenderness Skin: Skin warm and dry. Normal skin color. Normal skin turgor. Extremities: No lower extremity edema. No calf tenderness no tenderness of the knee no swelling pain in the left lower extremity near the ankle area which is also not swollen no deformity Neuro: Oriented X 3. No motor deficit. No sensory deficit.No cerebellar signs , cranial nerves II-XII intact Medical Decision Making Medical Decision Making MDM Narrative: Patient woke up ambulatory in his steady gait taking p.o. fluids discharge patient home Discharge Plan Discharge Clinical Impression: Alcohol abuse Patient Disposition: Home, Self-Care Instructions: Abuse of Alcohol (ED) Additional Instructions: Stop drinking alcohol Follow up with detox Prescriptions: No Action midodrine 5 mg Tablet 5 mg PO TID Qty: 180 0RF furosemide 20 mg Tablet 20 mg PO DAILY Qty: 90 0RF Protocol: Hold for SBP< HOLD for SBP < : 90 omeprazole 20 mg Capsule,Delayed Release(Dr/Ec) 20 mg PO BID@0630,1630 Qty: 60 0RF folic acid 1 mg Tablet 1 mg PO DAILY Qty: 90 0RF thiamine mononitrate (vit B1) 100 mg Tablet 100 mg PO DAILY Qty: 90 0RF magnesium oxide 400 mg (241.3 mg magnesium) Tablet 400 mg PO BIDPC Qty: 180 0RF fluconazole 100 mg Tablet 100 mg PO DAILY Qty: 10 0RF sucralfate 1 gram Tablet 1 g PO BIDAC Qty: 60 0RF Print Language: [place]
--- OUTSIDE RECORDS SUMMARY | 2024-12-09 06:14 | XMS_ITS | Clinical Summary ---
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 Active carvedilol (Coreg) 6.25 MG tablet Take 6.25 mg by mouth 2 times daily. 11/03/2023 Active folic acid (Folvite) 1 MG tablet Take 1 mg by mouth in the morning. Active furosemide (Lasix) 20 MG tablet Take 20 mg by mouth in the morning. 11/04/2023 Active ibuprofen 600 MG tablet Take 600 mg by mouth in the morning and 600 mg at noon and 600 mg in the evening. Active lactulose (Chronulac) 10 GM/15ML solution Take 60 mL by mouth in the morning and 60 mL at noon and 60 mL in the evening. Active magnesium hydroxide (Milk of Magnesia) 400 MG/5ML suspension Take 1,200 mg by mouth if needed each day. Active magnesium oxide (Mag-Ox) 400 MG tablet Take 400 mg by mouth in the morning. 11/03/2023 Active Multiple Vitamins-Mineral s (Oncovite) tablet Take 1 tablet by mouth in the morning. Active omeprazole (PriLOSEC) [address] capsule Take 40 mg by mouth every 12 (twelve) hours. 11/04/2023 Active rifAXIMin (Xifaxan) 550 MG tablet Take 550 mg by mouth 2 times daily. Active spironolactone (Aldactone) 25 MG tablet Take 12.5 mg by mouth 2 times daily. Active sucralfate (Carafate) 1 g tablet Take 1 g by mouth 2 times daily. Active thiamine (Vitamin B-1) 100 MG tablet Take 100 mg by mouth in the morning. Active Active Problems Problem Noted Date Diagnosed Date Acute blood loss anemia 10/31/2023 Overview (01/12/2024): Last Assessment & Plan: Due to upper GI bleed, gastroenterology following Received 3 units of PRBC during the hospitalization Hemoglobin stable Transfusion goal Hgb >7 Carvedilol started for varices Chronic systolic heart failure 10/31/2023 Overview (01/12/2024): Last Assessment & Plan: Euvolemic currently, likely started for cirrhosis Unknown ejection fraction at baseline. Hold diuretics in the setting of GI bleed. Monitor for volume overload. Alcoholic cirrhosis 10/31/2023 Overview (01/12/2024): Last Assessment & Plan: History of hepatic encephalopathy. Probably at his baseline mental state. Continue home medications other than diuretics. Give ceftriaxone for SBP prophylaxis in the setting of GI bleed. Depression with anxiety 10/31/2023 Essential hypertension 10/31/2023 History of esophageal varices 10/31/2023 Upper GI bleed 10/31/2023 Overview (01/12/2024): Last Assessment & Plan: 2 days of melena with coffee-ground emesis on presentation. GI consulted and performed upper endoscopy on 10/31, evidence of kiel zee tear, gastric ulcers s/p clip placement. Patient started on clear liquid diet after procedure Transition to regular diet on 11/02, patient tolerating Will continue PPI IV twice daily Carvedilol started as per recommendations for esophageal varices Patient was advised to avoid NSAIDs Hepatic encephalopathy 10/06/2023 Overview (01/12/2024): Last Assessment & Plan: Patient presented with altered mental status from [employer] where he appeared more lethargic than his baseline and was found to have ammonia level of 140 10/10: improvement, patient more conversational today Will continue lactulose Will continue Lasix, spironolactone and rifaximin Repeat ammonia level 107 on 10/07, added on for today Patient continues to be confused, AO x 1 but lethargy improved Pancytopenia 10/06/2023 Overview (01/12/2024): Last Assessment & Plan: Possibly due to alcohol abuse Will continue to monitor CBC Encounters Date Type Department Care Team Description 11/29/2024 Orders Only GENERIC EXTERNAL DATA DEPARTMENT Provider, Generic External Data 11/28/2024 Orders Only [facility] External Provider, [facility] 11/27/2024 Orders Only GENERIC EXTERNAL DATA DEPARTMENT Provider, Generic External Data 10/21/2024 Orders Only GENERIC EXTERNAL DATA DEPARTMENT Provider, Generic External Data 10/20/2024 Orders Only [facility] External Provider, [facility] 10/18/2024 Orders Only GENERIC EXTERNAL DATA DEPARTMENT Provider, Generic External Data 10/17/2024 Orders Only GENERIC EXTERNAL DATA DEPARTMENT Provider, Generic External Data 10/12/2024 Orders Only GENERIC EXTERNAL DATA DEPARTMENT Provider, Generic External Data from Last 3 Months Immunizations Name Administration Dates Next Due Fashion Project SARS-CoV-2 Vaccination 04/28/2021 Pfizer Covid-19 Vaccine 12+ Bivalent 11/23/2022 SARS-CoV-2, Unspecified 04/28/2021 Td (adult), 5 Lf tetanus tox oid, preservative free, adsorbed 05/18/2017 Tdap 09/16/2021 Social History Tobacco Use Types Packs/Day Years Used Date Smoking Tobacco: Never Assessed Sex and Gender Information Value Date Recorded Sex Assigned at Male 11/23/2022 11:29 AM EST Legal Sex Male 11:26 AM EST Gender Identity Male 11/23/2022 11:29 AM EST Sexual Orientation Straight 01/11/2024 8: 14 AM EST Plan of Treatment Health Maintenance Due Date Last Done Comments CT Colonography 1969 Colonoscopy 1969 Colorectal Cancer Screening 1969 Depression Screening 1969 FIT DNA/Cologuard 1969 FIT 1969 FOBT 1969 HIV Screening 1969 Lipid Panel 1969 SDOH Screening 1969 Sigmoidoscopy 1969 Pneumococcal Vaccine: Pediatrics (0 to 5 Years) and At-Risk Patients (6 to 64 Years) (1 of 2 - PCV) 1975 Alcohol/Substance Use Screening 1981 Tobacco Screening 1981 Hepatitis C Screening 1987 Hepatitis A Vaccines (1 of 2 - Risk 2-dose series) 01/27/1988 Hepatitis B Vaccines (1 of 3 - 19+ 3-dose series) 01/27/1988 Zoster Vaccines (1 of 2) 2019 COVID-19 Vaccine (4 - 2023-2 5 season) 2024 11/23/2022, 04/28/2021, 04/28/2021 Influenza Vaccine (#1) 2024 DTaP/Tdap/Td Vaccines (2 - T d or Tdap) 09/16/2031 09/16/2021, 05/18/2017 RSV Patients and Patients Aged 60 years or older (1 - 1-dose 75+ series) 01/27/2044 HIB Vaccines Aged Out No longer eligi ble based on patient's age to complete this topic HPV Vaccines Aged Out No longer eligi ble based on patient's age to complete this topic IPV Vaccines Aged Out No longer eligi ble based on patient's age to complete this topic Meningococcal Vaccine Aged Out No armando glory eligible based on patient's age to complete this topic RSV under 20 months Aged Out No longe r eligible based on patient's age to complete this topic Rotavirus Vaccines Aged Out No longer eligible based on patient's age to complete this topic Procedures Procedure Name Priority Date/Time Associated Diagnosis Comments CT HEAD WO CONTRAST Routine 11/30/2024 2 :[address] CHEST W CONTRAST Routine 11/29/2024 5 :[address] ABDOMEN PELVIS W CONTRAST Routine 11/29/2024 5:14 AM EST RED BLOOD COUNT Routine 11/29/2024 3:39 AM EST TYPE AND SCREEN Routine 11/29/2024 3:39 AM EST LACTIC ACID Routine 11/29/2024 3:39 AM EST MAGNESIUM Routine 11/29/2024 2:29 AM EST ETHANOL Routine 11/29/2024 2:29 AM EST LIPASE Routine 11/29/2024 2:29 AM EST COMPREHENSIVE METABOLIC PANEL Routine 11/29/2024 2:29 AM EST CBC WITH AUTO DIFFERENTIAL Routine 11/29/2024 2:29 AM EST SARS COV2/INFLUENZA A/B AND RSV RNA QL NAAT Routine 11/29/2024 2:29 AM EST AMMONIA (P) Routine 11/27/2024 3:08 PM EST ETHANOL Routine 11/27/2024 3:05 PM EST COMPREHENSIVE METABOLIC PANEL Routine 11/27/2024 3:05 PM EST CBC WITH AUTO DIFFERENTIAL Routine 11/27/2024 3:05 PM EST XR FOOT 3+ VIEWS LEFT Routine 11/27/2024 2:55 PM EST XR ANKLE 3+ VIEWS LEFT Routine 2:55 PM EST XR ANKLE 3+ VIEWS RIGHT Routine 11/27/2024 2:55 PM EST XR FOOT 3+ VIEWS RIGHT Routine 2:[address] HEAD WO CONTRAST Routine 11/20/2024 4 :[address] CERVICAL SPINE WO CONTRAST Routine 11/20/2024 4:[address] CHEST WO CONTRAST Routine 10/21/2024 8:17 AM EST VENOUS BLOOD GAS Routine 10/21/2024 7:52 AM EST B TYPE NATRIURETIC PEPTIDE (BNP) Routine 10/21/2024 7:40 AM EST LACTIC ACID LAB USE ONLY Routine 10/21/2024 7:40 AM EST BASIC METABOLIC PANEL Routine 10/21/2024 7:40 AM EST LACTIC ACID Routine 10/21/2024 5:39 AM EST AMMONIA (P) Routine 10/21/2024 5:39 AM EST SARS COV2/INFLUENZA A/B AND RSV RNA QL NAAT Routine 10/21/2024 5:39 AM EST ETHANOL Routine 10/21/2024 5:28 AM EST MAGNESIUM Routine 10/21/2024 5:28 AM EST COMPREHENSIVE METABOLIC PANEL Routine 10/21/2024 5:28 AM EST PROTHROMBIN TIME-INR Routine 10/21/2024 5:28 AM EST CBC WITH AUTO DIFFERENTIAL Routine 10/21/2024 5:28 AM EST XR CHEST 1 VIEW Routine 10/21/2024 5:23 AM EST MAGNESIUM Routine 10/18/2024 1:30 AM EST BASIC METABOLIC PANEL Routine 10/18/2024 1:30 AM EST MAGNESIUM Routine 10/17/2024 6:52 PM EST SLIDE REVIEW Routine 10/17/2024 6:52 PM EST CBC WITH AUTO DIFFERENTIAL Routine 10/17/2024 6:52 PM EST ETHANOL Routine 10/17/2024 6:52 PM EST BASIC METABOLIC PANEL Routine 10/17/2024 6:52 PM EST HEPATIC FUNCTION PANEL Routine 4 6:52 PM EST BLOOD CULTURE (SECOND) Routine 4 11:55 PM EST BLOOD CULTURE (FIRST) Routine 10/12/2024 11:55 PM EST from Last 3 Months Results * CT Head w/o Contrast (11/30/2024 2:14 AM EST) Only the most recent of2 resultswithin the time period is included. Anatomical Region Laterality Modality Head, Neck Computed Tomogra phy 11/30/2024 2:14 AM EST Narrative 11/30/2024 2:17 AM EST ? [facility] ?[address] ?[place] [address] ? CT Scan Report ? Signed ? Patient: Delgado,Charbel ?MR#: [id number] ? : 1970 ?Acct:[id number] ? Age/Sex: 54 / M ?ADM Date: 11/29/24 ? Loc: HO.IMC ?474-1 ? Attending Dr: Yazmin WALLACE ? Ordering Physician: Yazmin Shafer ?? Date of Service: 11/30/24 ?? Procedure(s): CT head/brain wo IV con ?? Accession Number(s): [id number] ? cc: Yazmin Shafer; [facility] ? Report Number: ?? [id number]: Total DLP = ??643.00 mGy-cm ? CLINICAL [...] signed by Randal Mendoza MD in OV> ?11/30/24 0215 ? DD/ 3 ? TD/TT: 11/30/24213 ? Vault Teller: ? Procedure Note Shoaibter, Image - 11/30/[address] [address] [address] Scan Report Signed Patient: Isaias Delgado#: [id number] : 1970Acct:[id number] Age/Sex: 54 / MADM Date: 11/29/24 Loc: [facility] 474-[address]: Yazmin WALLACE Ordering Physician: Yazmin Shafer Date of Service: 11/30/24 Procedure(s): CT head/brain wo IV con Accession Number(s): [id number] cc: Yazmin Shafer; [facility] Report Number: [id number]: Total DLP = 643.00 mGy-cm CLINICAL HISTORY: [...] in OV> 11/30/24214 DD/ 3 TD/TT: 11/30/24213 Vault Teller: [facility] External Provider IMG CT PROCEDURES Final Result * CT Abdomen Pelvis w/ Contrast (11/29/2024 5:14 AM EST) Anatomical Region Laterality Modality Body, Pelvis, Abdomen Computed T omography 11/29/2024 5:14 AM EST Narrative 11/29/2024 5:16 AM EST ? [facility] ?[address] ?[place] [address] ? CT Scan Report ? Signed ? Patient: Charbel Delgado ?MR#: [id number] ? : 1970 ?Acct:[id number] ? Age/Sex: 54 / M ?ADM Date: 11/28/24 ? Loc: HO.ED ? Attending Dr: ? Ordering Physician: Trudy Brannon ?? Date of Service: 11/29/24 ?? Procedure(s): CT abdomen pelvis w IV con ?? Accession Number(s): [id number] ? cc: Trudy Brannon; [facility] ? Report Number: ?? [id number]: Total DLP = ??512.00 mGy-cm ? CLINICAL [...] DD/ 0514 ? TD/TT: 11/29/24 0514 ? Vault Teller: ? Procedure Note Donotuseinterpreter, Image - 11/29/[address] [place] [address] [address] Scan Report Signed Patient: Isaias Delgado#: [id number] : 1970Acct:[id number] Age/Sex: 54 / MADM Date: 11/28/24 Loc: HO.ED Attending Dr: Ordering Physician: Trudy Brannon Date of Service: 11/29/24 Procedure(s): CT abdomen pelvis w IV con Accession Number(s): [id number] cc: Trudy Brannon; [facility] Report Number: [id number]: Total DLP = 512.00 mGy-cm CLINICAL HISTORY: [...] Rogers MD in OV> 11/29/24 0515 DD/ 3 TD/TT: 11/29/24513 Vault Teller: [facility] External Provider IMG CT PROCEDURES Edited Result - Final * CT Chest w/ Contrast (11/29/2024 5:14 AM EST) Anatomical Region Laterality Modality Body, Chest Computed Tomogra phy 11/29/2024 5:14 AM EST Narrative 11/29/2024 5:16 AM EST ? [facility] ?[address] ?[place] [address] ? CT Scan Report ? Signed ? Patient: Delgado,Charbel ?MR#: [id number] ? : 1970 ?Acct:[id number] ? Age/Sex: 54 / M ?ADM Date: 11/28/24 ? Loc: HO.ED ? Attending Dr: ? Ordering Physician: Trudy Brannon ?? Date of Service: 11/29/24 ?? Procedure(s): CT chest w IV con ?? Accession Number(s): [id number] ? cc: Trudy Brannon; [facility] ? Report Number: ?? [id number]: Total DLP = ??248.00 mGy-cm ? CLINICAL HISTORY: infection, aspiraion ? CT chest with contrast ? Comparison: None ? Findings: ?? The heart is enlarged with ywht-fl-hmupotob coronary calcium. No ?? pericardial effusion. No [...] MD in OV> ?11/29/24 0515 ? DD/ 3 ? TD/TT: 11/29/24513 ? Vault Teller: ? Procedure Note Moy, Image - 11/29/[address] [place] [address] [address] Scan Report Signed Patient: Isaias Delgado#: [id number] : 1970Acct:[id number] Age/Sex: 54 / MADM Date: 11/28/24 Loc: HO.ED Attending Dr: Ordering Physician: Trudy Brannon Date of Service: 11/29/24 Procedure(s): CT chest w IV con Accession Number(s): [id number] cc: Trudy Brannon; [facility] Report Number: [id number]: Total DLP = 248.00 mGy-cm CLINICAL HISTORY: infection, aspiraion CT chest with contrast Comparison: None Findings: The heart is enlarged with hdht-vy-szmfhvpc coronary calcium. No pericardial effusion. No adenopathy. [...] signed by Mary Rogers MD in OV> 11/29/24514 DD/ 3 TD/TT: 11/29/24513 Vault Teller: [facility] External Provider IMG CT PROCEDURES Edited Result - Final * Lactic Acid (11/29/2024 3:39 AM EST) Only the most recent of2 resultswithin the time period is included. Lactic Acid 1.1 0.5 - 2.0 mmol/L [facility] 11/29/2024 3:39 AM EST 11/29/2024 3:44 AM EST Generic External Data Provider LAB BLOOD ORDERAB LES Final Result Performing Organization Address City/Va Hospital/ZIP Co de Phone Number [facility] [address] [place] [phone] * Ethanol (11/29/2024 2:29 AM EST) Only the most recent of4 resultswithin the time period is included. ETHANOL (MG/DL) IN SER/PLAS <10 mg/dL [facility] Comment:Serum/plasma ethanol results are to be used formedical/treatment purposes only. 11/29/2024 2:29 AM EST 11/29/2024 2:33 AM EST Generic External Data Provider LAB BLOOD ORDERAB LES Final Result Performing Organization Address City/[facility] Hospital/ZIP Co de Phone Number [facility] [address] [place] [phone] * SARS-CoV-2 RNA, Influenza A/B, and RSV RNA, Ql NAAT (11/29/2024 2:29 AM EST) Only the most recent of2 resultswithin the time period is included. Pathologist [facility] Influenza A PCR NEGATIVE Negative [facility] Influenza B PCR NEGATIVE Negative [facility] Resp Syncy Virus RNA Qual PCR NEGATIVE Negative [facility] SARS COV2 PCR NEGATIVE Negative [facility] Comment:All test results mus t be [...] use by authorized laboratories.Testing performed on the [employer] GeneXpert utilizingreal-time RT-PCR.All SARS CoV2 and positive influenza A/B results arereported to [facility]. 11/29/2024 2:29 AM EST 11/29/2024 2:33 AM EST us Generic External Data Provider LAB MICROBIOLOGY - GENERAL ORDERABLES Final Result [facility] [address] [place] [phone] * (ABNORMAL) CBC auto differential (11/29/2024 2:29 AM EST) Only the most recent of4 resultswithin the time period is included. Pathologist [facility] White Blood Count 5.5 4.8 - 10.8 X10*3/uL [facility] Red Blood Count 2.26(L) 4.60 - 5.80 X10*6/uL [facility] Hemoglobin 7.5(L) 14.0 - 18.0 g/dl [facility] Hematocrit 22.2(L) 42.0 - 52.0 % [facility] Mean Corpuscular Volume 98.2(H) 80.0 - 98.0 fL [facility] Mean Corpuscular Hemoglobin 33.2(H) 27.0 - 33.0 pg [facility] Mean Corpuscular HGB Conc 33.8 31.0 - 36.0 g/dl [facility] Red Cell Distribution Width 14.4 11.0 - 16.0 % [facility] Platelet Count 33(L) 160 - 400 X10*3/uL [facility] Mean Platelet Volume 11.9 9.4 - 12.4 fL [facility] Neutrophils Percent Auto 86.7(H) 45 - 73 % [facility] Imm Gran Pct Auto 0.4 0.0 - 0.4 % [facility] Lymphocytes Percent Auto 5.9(L) 20 - 40 % [facility] Monocytes Percent Auto 4.8 2 - 11 % [facility] Eosinophils Percent Auto 2.0 0 - 4 % [facility] Basophils Percent Auto 0.2 0 - 2 % [facility] NRBC Pct Auto 0.0 0.0 - 0.2 /100WBC [facility] Neutrophils Absolute Auto 4.8 2.0 - 8.3 x10*3/uL [facility] Imm Gran Abs Auto 0.02 0.00 - 0.03 X10*3/uL [facility] Lymphocytes Absolute Auto 0.3(L) 1.2 - 4.9 X10*3/uL [facility] Monocytes Absolute Auto 0.3 0.1 - 1.2 X10*3/uL [facility] Eosinophils Absolute Auto 0.1 0.0 - 0.4 X10*3/uL [facility] Basophils Absolute Auto 0.0 0.0 - 0.2 X10*3/uL [facility] NRBC Abs Auto 0.000 0.0 - 0.012 X10*3/uL [facility] 11/29/2024 2:29 AM EST 11/29/2024 2:33 AM EST us Generic External Data Provider LAB BLOOD ORDERAB LES Final Result [facility] [address] [place] [phone] * (ABNORMAL) Magnesium (11/29/2024 2:29 AM EST) Only the most recent of4 resultswithin the time period is included. Pathologist [facility] Magnesium 1.4(LL) 1.6 - 2.6 mg/dL [facility] Comment:Critical value for t est(s):MAGNESIUM Results called to gildardo back by:ALIA Person calling:ALEate:11/29/24 Time:0302 11/29/2024 2:29 AM EST 11/29/2024 2:33 AM EST Generic External Data Provider LAB BLOOD ORDERAB LES Final Result Performing Organization Address [facility] de Phone Number [facility] [address] [place] [phone] * Lipase (11/29/2024 2:29 AM EST) Pathologist [facility] Lipase 45 8 - 78 U/L [facility] 11/29/2024 2:29 AM EST 11/29/2024 2:33 AM EST Generic External Data Provider LAB BLOOD ORDERAB LES Final Result Performing Organization Address [facility] Phone Number [facility] [address] [place] [phone] * (ABNORMAL) Comprehensive Metabolic Panel (11/29/2024 2:29 AM EST) Only the most recent of3 resultswithin the time period is included. Pathologist [facility] Sodium 138 135 - 145 mmol/L [facility] Potassium 3.7 3.3 - 5.1 mmol/L [facility] Chloride 105 96 - 108 mmol/L [facility] Carbon Dioxide 23 22 - 29 mmol/L [facility] Anion Gap 14 12 - 20 [facility] Urea Nitrogen (BUN) 29(H) 9 - 16 mg/dL [facility] Creatinine, Serum 0.73 0.5 - 1.4 mg/dL [facility] Creatinine Clr Calc Pharmacy 92.8 [facility] Comment:eGFR (calculated fro m the MDRD study equation) and eCrCl(calculated from the Cockcroft-Gault equation) are based ondifferent parameters and may not yield comparable results.If eCrCl result is absurd, please check patient'sheight/weight. Estimated Glomerular Filt Rate >60 [facility] Comment:Chronic Kidney Disea se: Estimated GFR < 60 mL/min/1.92m4Wrswda Kidney Disease: Estimated GFR < 15 mL/min/1.73m2 Glucose 116(H) 60 - 115 mg/dL [facility] Calcium 8.7 8.4 - 10.2 mg/dL [facility] Bilirubin, Total 1.8(H) 0.0 - 1.0 mg/dL [facility] Comment:Slight Icterus. Aspartate Amino Transferase 47(H) 5 - 37 U/L [facility] Alanine Aminotransferase 19 0 - 40 U/L [facility] Total Protein 7.2 6.5 - 8.0 g/dL [facility] Albumin Level 3.3(L) 3.5 - 5.0 g/dL [facility] Alkaline Phosphatase 180(H) 39 - 117 U/L [facility] 11/29/2024 2:29 AM EST 11/29/2024 2:33 AM EST us Generic External Data Provider LAB BLOOD ORDERAB LES Final Result [facility] [address] [place] [phone] * (ABNORMAL) Ammonia, Plasma (11/27/2024 3:08 PM EST) Only the most recent of2 resultswithin the time period is included. Ammonia (P) 70(H) 13 - 55 umol/L [facility] Comment:Slight Hemolysis.Int erpret result with caution. 11/27/2024 3:08 PM EST 11/27/2024 3:12 PM EST us Generic External Data Provider LAB BLOOD ORDERAB LES Final Result [facility] [address] [place] [phone] * XR Foot 3+ Views Right (11/27/2024 2:55 PM EST) Anatomical Region Laterality Modality Lower Extremities, Foot Right Radiogra phic Imaging 11/27/2024 2:55 PM EST Narrative 11/27/2024 3:52 PM EST ? [facility] ?[address] ?[place] [address] ?XRay Report ? Signed ? Patient: Delgado,Charbel ?MR#: [id number] ? : 1970 ?Acct:[id number] ? Age/Sex: 54 / M ?ADM Date: 11/27/24 ? Loc: HO.ED ? Attending Dr: ? Ordering Physician: Bautista Gomes DO ?? Date of Service: 11/27/24 ?? Procedure(s): XR foot RT min 3V ?? Accession Number(s): [id number] ? cc: [facility]; Bautista Gomes DO ? EXAMINATION: ?? [...] DD/ 1455 ? TD/TT: 11/27/24 1542 ? Vault Teller: ? Procedure Note Donothennater, Image - 11/27/[address] [address] XRay Report Signed Patient: Isaias Delgado#: [id number] : 1970Acct:[id number] Age/Sex: 54 / MADM Date: 11/27/24 Loc: HO.ED Attending Dr: Ordering Physician: Bautista Gomes DO Date of Service: 11/27/24 Procedure(s): XR foot RT min 3V Accession Number(s): [id number] cc: [facility]; Bautista Gomes DO EXAMINATION: XR FOOT, [...] by: Eric Steele MD 11/27/2024 03:50 PM EST Dictated By: Eric Nobles MD Signed By: <Electronically signed by Eric Kwon MDin OV> 11/27/24 1550 DD/ 1455 TD/TT: 11/27/24 1542 Vault Teller: us [facility] External Provider IMG XR PROCEDURES Final Result * XR Foot 3+ Views Left (11/27/2024 2:55 PM EST) Anatomical Region Laterality Modality Lower Extremities, Foot Left Radiogra phic Imaging 11/27/2024 2:55 PM EST Narrative 11/27/2024 3:58 PM EST ? [facility] ?[address] ?[place] [address] ?XRay Report ? Signed ? Patient: Delgado,Charbel ?MR#: [id number] ? : 1970 ?Acct:[id number] ? Age/Sex: 54 / M ?ADM Date: 11/27/24 ? Loc: HO.ED ? Attending Dr: ? Ordering Physician: Bautista Gomes DO ?? Date of Service: 11/27/24 ?? Procedure(s): XR foot LT min 3V ?? Accession Number(s): [id number] ? cc: [facility]; Bautista Gomes DO ? EXAMINATION: ?? [...] DD/ 1455 ? TD/TT: 11/27/24 1542 ? Vault Teller: ? Procedure Note Renato Winter - 11/27/2024 [facility] [address] [place] [address] XRay Report Signed Patient: Edie DelgadoMago#: [id number] : 1970Acct:[id number] Age/Sex: 54 / MADM Date: 11/27/24 Loc: HO.ED Attending Dr: Ordering Physician: Bautista Gomes DO Date of Service: 11/27/24 Procedure(s): XR foot LT min 3V Accession Number(s): [id number] cc: [facility]; Bautista Gomes DO EXAMINATION: XR FOOT, [...] 11/27/24 1555 DD/ 1455 TD/TT: 11/27/24 1542 Vault Teller: [facility] External Provider IMG XR PROCEDURES Final Result * XR Ankle 3+ Views Right (11/27/2024 2:55 PM EST) Anatomical Region Laterality Modality Lower Extremities, Ankle Right Radiogr aphic Imaging 11/27/2024 2:55 PM EST Narrative 11/27/2024 3:55 PM EST ? [facility] ?[address] ?[place] [address] ?XRay Report ? Signed ? Patient: Delgado,Charbel ?MR#: [id number] ? : 1970 ?Acct:[id number] ? Age/Sex: 54 / M ?ADM Date: 01/15/25 ? Loc: HO.ED ? Attending Dr: ? Ordering Physician: Bautista Gomes DO ?? Date of Service: 11/27/24 ?? Procedure(s): XR ankle RT min 3V ?? Accession Number(s): [id number] ? cc: [facility]; Bautista Gomes DO ? EXAMINATION: ?? [...] Steele MD ??11/27/2024 03:52 PM ?? EST ? Dictated By: ?Eric Nobles MD ? Signed By: ?<Electronically signed by Eric Kwon MD in OV> ? 11/27/24 1552 ? DD/ 1455 ? TD/TT: 11/27/24 1542 ? Vault Teller: ? Procedure Note Renato Winter - 11/27/2024 [place] [address] XRay Report Signed Patient: Isaias Delgado#: [id number] : 1970Acct:[id number] Age/Sex: 54 / MADM Date: 11/27/24 Loc: HO.ED Attending Dr: Ordering Physician: Bautista Gomes DO Date of Service: 11/27/24 Procedure(s): XR ankle RT min 3V Accession Number(s): [id number] cc: [facility]; Bautista Gomes DO EXAMINATION: XR ANKLE, [...] Eric Steele MD 11/27/2024 03:52 PM EST RP Dictated By: Eric Nobles MD Signed By: <Electronically signed by Eric Kwon MDin OV> 11/27/24 1552 DD/ 1455 TD/TT: 11/27/24 1542 Vault Teller: [facility] External Provider IMG XR PROCEDURES Final Result * XR Ankle 3+ Views Left (11/27/2024 2:55 PM EST) Anatomical Region Laterality Modality Lower Extremities, Ankle Left Radiogr aphic Imaging 11/27/2024 2:55 PM EST Narrative 11/27/2024 3:56 PM EST ? [facility] ?[address] ?[place] [address] ?XRay Report ? Signed ? Patient: Charbel Delgado ?MR#: [id number] ? : 1970 ?Acct:[id number] ? Age/Sex: 54 / M ?ADM Date: 11/27/24 ? Loc: HO.ED ? Attending Dr: ? Ordering Physician: Bautista Gomes DO ?? Date of Service: 11/27/24 ?? Procedure(s): XR ankle LT min 3V ?? Accession Number(s): [id number] ? cc: [facility]; Bautista Gomes DO ? EXAMINATION: ?? [...] Eric Kwon MD in OV> ? 11/27/24 1553 ? DD/ 1455 ? TD/TT: 11/27/24 1542 ? Vault Teller: ? Procedure Note Donotfernandointerpreter, Image - 11/27/2024 [place] [address] XRay Report Signed Patient: Isaias Delgado#: [id number] : 1970Acct:[id number] Age/Sex: 54 / MADM Date: 11/27/24 Loc: HO.ED Attending Dr: Ordering Physician: Bautista Gomes DO Date of Service: 11/27/24 Procedure(s): XR ankle LT min 3V Accession Number(s): [id number] cc: [facility]; Bautista Gomes DO EXAMINATION: XR ANKLE, [...] Eric Steele MD 11/27/2024 03:53 PM EST Dictated By: Eric Nobles MD Signed By: <Electronically signed by Eric Kwon MDin OV> 11/27/24 1553 DD/ 1455 TD/TT: 11/27/24 1542 Vault Teller: us [facility] External Provider IMG XR PROCEDURES Final Result * CT Cervical Spine w/o Contrast (11/20/2024 4:25 PM EST) Anatomical Region Laterality Modality Spine, C-spine Computed Tomogra phy 11/20/2024 4:25 PM EST Narrative 11/20/2024 4:27 PM EST ? [facility] ?[address] ?[place] [address] ? CT Scan Report ? Signed ? Patient: Delgado,Charbel ?MR#: [id number] ? : 1970 ?Acct:[id number] ? Age/Sex: 54 / M ?ADM Date: 11/20/24 ? Loc: HO.ED ? Attending Dr: ? Ordering Physician: Crystal Olsen MD ?? Date of Service: 11/20/24 ?? Procedure(s): CT cervical spine wo IV con ?? Accession Number(s): [id number] ? cc: Crystal Olsen MD; [facility] ? Report Number: ?? [id number]: Total DLP = ??281.00 mGy-cm ? CLINICAL HISTORY: intoxicated, fall ? CT cervical spine without contrast ? Comparison: 05/11/24 ? Findings: ?? Mild multilevel anterolisthesis and retrolisthesis, degenerative. ?? Unchanged mild exaggeration of the normal cervical lordosis. ?? No fracture. ?? No severe central spinal canal stenosis. ?? No epidural hematoma. ?? Normal thickness of the prevertebral soft tissues. ?? The lung apices are clear. ? Impression: ?? No acute findings. ? This document has been electronically signed by: Valorie Quiles MD ?? on 11/20/2024 16:25:23 ? Dictated By: ?Valorie Murillo MD ? Signed By: ?<Electronically signed by Valorie Murillo MD in OV> ? 11/20/24 1626 ? DD/ ? TD/TT: 11/20/24 1625 ? Vault Teller: ? Procedure Note Renato Winter - 11/20/2024 [facility] [address] [place] [address] CT Scan Report Signed Patient: Edie DelgadoMago#: [id number] : 1970Acct:[id number] Age/Sex: 54 / MADM Date: 11/20/24 Loc: HO.ED Attending Dr: Ordering Physician: Crystal Olsen MD Date of Service: 11/20/24 Procedure(s): CT cervical spine wo IV con Accession Number(s): [id number] cc: Crystal Olsen MD; [facility] Report Number: [id number]: Total DLP = 281.00 mGy-cm CLINICAL HISTORY: intoxicated, fall CT cervical spine without contrast Comparison: 05/11/24 Findings: Mild multilevel anterolisthesis and retrolisthesis, degenerative. Unchanged mild exaggeration of the normal cervical lordosis. No fracture. No severe central spinal canal stenosis. No epidural hematoma. Normal thickness of the prevertebral soft tissues. The lung apices are clear. Impression: No acute findings. This document has been electronically signed by: Valorie Quiles MD on 11/20/2024 16:25:23 Dictated By: Valorie Murillo MD Signed By: <Electronically signed by Valorie Murillo MD in OV> 11/20/24 1626 DD/ 1625 TD/TT: 11/20/24 1625 Vault Teller: [facility] External Provider IMG CT PROCEDURES Edited Result - Final * CT Chest w/o Contrast (10/21/2024 8:17 AM EST) Anatomical Region Laterality Modality Body, Chest Computed Tomogra phy 10/21/2024 8:17 AM EST Narrative 10/21/2024 11:18 AM EST ? [facility] ?[address] ?[place] [address] ? CT Scan Report ? Signed ? Patient: Delgado,Charbel ?MR#: [id number] ? : 1970 ?Acct:[id number] ? Age/Sex: 54 / M ?ADM Date: 12//24 ? Loc: HO.EDOVER ?IMC-1 ? Attending Dr: Cliff Hdez MD ? Ordering Physician: Milan Wiley MD ?? Date of Service: 10/21/24 ?? Procedure(s): CT chest wo IV con ?? Accession Number(s): [id number] ? cc: Milan Wiley MD; [facility] ? EXAMINATION: ?? CT CHEST WITHOUT CONTRAST ? CLINICAL INFORMATION: ?? Pneumonia. ? COMPARISON: ?? Most recent chest radiograph done earlier the same day. CT chest dated ?? 05/02/2024. ? TECHNIQUE: ?? Multidetector volumetric CT imaging of the chest was done. Axial MIP ?? volume rendering provided. Sagittal and coronal reformatted images were ?? obtained. ? This CT examination was performed using dose optimization techniques as ?? appropriate, variously including the following: ?? *Automated exposure control ?? *Adjustment of mA and/or kV according to patient size (this includes ?? techniques or standardized protocols for targeted exams where dose is ?? matched to indication/reason for exam; i.e. extremities or head) ?? *Use of iterative reconstruction technique ? DLP: ?? 242 mGy-cm ? FINDINGS: ? PYROMETER OPERATOR: Partially visualized bilateral opacities. ? LUNGS: Confluent left lower lobe airspace consolidations with air ?? progress. Additional scattered partially ground-glass right and left ?? upper lobe airspace opacities. Linear areas of atelectasis versus ?? scarring within the right lower lobe. No large pulmonary mass. The ?? central airways are patent. ? MEDIASTINUM: No cardiomegaly. No pericardial effusion. No thoracic ?? aortic dilatation. No significant mediastinal or hilar lymphadenopathy; ?? however, evaluation limited without contrast. ? CORONARY ARTERY CALCIFICATION: Present. ? PLEURA: There is no pleural effusion. No pleural mass or thickening. ? AXILLA: No lymphadenopathy. ? UPPER ABDOMEN: Hepatomegaly with diffuse hypoattenuation of the ?? parenchyma consistent with steatosis. Sliding hiatal hernia. Small ?? amount of upper abdominal ascites with partially visualized mesenteric ?? stranding. ? OSSEOUS STRUCTURES: No acute osseous abnormality. Chronic compression ?? deformity of T8. No acute osseous abnormality. ? CT/CT chest wo IV con ?? IMPRESSION: ?? 1. Confluent left lower lobe airspace consolidations with air ?? bronchograms. Additional scattered partially ground-glass airspace ?? opacities within the right and left upper lobes. Findings are ?? consistent with multifocal pneumonia and are new when compared to the ?? prior chest CT. ? 2. No significant lymphadenopathy. ? 3. Hepatomegaly with hepatic steatosis. Small amount of upper abdominal ?? ascites with partially visualized mesenteric stranding. ? Fleischner guidelines were followed. ? Electronically signed by: ??Randal Maguire MD ??10/21/2024 11:15 AM EST ?? RP ? Dictated By: ?Randal Maguire MD ? Signed By: ?<Electronically signed by Randal Maguire MD in OV> ?10/21/24 1115 ? DD/ 0817 ? TD/TT: 10/21/24 0907 ? Vault Teller: SR ? Procedure Note Donotuseinterpreter, Image - 10/21/[address] [place] [address] [address] Scan Report Signed Patient: Isaias Delgado#: [id number] : 1970Acct:[id number] Age/Sex: 54 / MADM Date: 10/21/24 Loc: [facility]: Cliff Hdez MD Ordering Physician: Milan Wiley MD Date of Service: 10/21/24 Procedure(s): CT chest wo IV con Accession Number(s): [id number] cc: Milan Wiley MD; [facility] EXAMINATION: CT CHEST WITHOUT CONTRAST CLINICAL INFORMATION: Pneumonia. COMPARISON: Most recent chest radiograph done earlier the same day. CT chest dated 05/02/2024. TECHNIQUE: Multidetector volumetric CT imaging of the chest was done. Axial MIP volume rendering provided. Sagittal and coronal reformatted images were obtained. This CT examination was performed using dose optimization techniques as appropriate, variously including the following: *Automated exposure control *Adjustment of mA and/or kV according to patient size (this includes techniques or standardized protocols for targeted exams where dose is matched to indication/reason for exam; i.e. extremities or head) *Use of iterative reconstruction technique DLP: 242 mGy-cm FINDINGS: PYROMETER OPERATOR: Partially visualized bilateral opacities. LUNGS: Confluent left lower lobe airspace consolidations with air progress. Additional scattered partially ground-glass right and left upper lobe airspace opacities. Linear areas of atelectasis versus scarring within the right lower lobe. No large pulmonary mass. The central airways are patent. MEDIASTINUM: No cardiomegaly. No pericardial effusion. No thoracic aortic dilatation. No significant mediastinal or hilar lymphadenopathy; however, evaluation limited without contrast. CORONARY ARTERY CALCIFICATION: Present. PLEURA: There is no pleural effusion. No pleural mass or thickening. AXILLA: No lymphadenopathy. UPPER ABDOMEN: Hepatomegaly with diffuse hypoattenuation of the parenchyma consistent with steatosis. Sliding hiatal hernia. Small amount of upper abdominal ascites with partially visualized mesenteric stranding. OSSEOUS STRUCTURES: No acute osseous abnormality. Chronic compression deformity of T8. No acute osseous abnormality. CT/CT chest wo IV con IMPRESSION: 1. Confluent left lower lobe airspace consolidations with air bronchograms. Additional scattered partially ground-glass airspace opacities within the right and left upper lobes. Findings are consistent with multifocal pneumonia and are new when compared to the prior chest CT. 2. No significant lymphadenopathy. 3. Hepatomegaly with hepatic steatosis. Small amount of upper abdominal ascites with partially visualized mesenteric stranding. Fleischner guidelines were followed. Electronically signed by: Randal Maguire MD 10/21/2024 11:15 AM EST Dictated By: Randal Maguire MD Signed By: <Electronically signed by Randal Maguire MD in OV> 10/21/24 1115 DD/ 0817 TD/TT: 10/21/24 0907 Vault Teller: SR us [facility] External Provider IMG CT PROCEDURES Final Result * (ABNORMAL) VENOUS BLOOD GAS (10/21/2024 7:52 AM EST) VBG pH 7.50(H) 7.32 - 7.43 [facility] Comment:METER #: [id number] additional_comment: Cb patelha VBG PCO2 26 mmHg [facility] Comment:METER #: [id number] additional_comment: Cb patelha VBG PO2 176 mmHg [facility] Comment:METER #: [id number] additional_comment: Junior estrada VBG Base Excess -1.3 mmol/L [facility] Comment:METER #: [id number] additional_comment: Junior estrada VBG HCO3 20(L) 22 - 26 mmol/L [facility] Comment:METER #: [id number] additional_comment: Cb natalie O2 Sat, Demetrio TNP % [facility] 10/21/2024 7:52 AM EST 10/21/2024 7:58 AM EST Generic External Data Provider LAB BLOOD ORDERAB LES Final Result Performing Organization Address [facility] Co de Phone Number [facility] [address] [place] [phone] * (ABNORMAL) Lactic Acid (10/21/2024 7:40 AM EST) [facility] Lactic Acid 2.7(HH) 0.5 - 2.0 mmol/L [facility] Comment:Critical value for L ACTIC: Results called to and read shantanu ARMENTA Person calling: KEITHElroy Date: 10/21/24 Time: 08 10/21/2024 7:40 AM EST 10/21/2024 7:53 AM EST us Generic External Data Provider LAB BLOOD ORDERAB LES Final Result Performing Organization Address [facility] Co de Phone Number [facility] [address] [place] [address] [phone] * (ABNORMAL) B Type Natriuretic Peptide (BNP) (10/21/2024 7:40 AM EST) [facility] B Type Natriuretic Peptide 157(H) <100 pg/mL [facility] Comment:For those patients w ho are being treated with Natrecor(nesiritide, recombinant BNP), BNP testing should beperformed at least two hours post treatment in order toensure that only endogenous levels of BNP are detected. 10/21/2024 7:40 AM EST 10/21/2024 7:51 AM EST us Generic External Data Provider LAB BLOOD ORDERAB LES Final Result Performing Organization Address City/[facility] Co de Phone Number [facility] [address] [place] [address] [phone] * (ABNORMAL) Basic Metabolic Panel (10/21/2024 7:40 AM EST) Only the most recent of3 resultswithin the time period is included. Sodium 135 135 - 145 mmol/L [facility] Potassium 3.9 3.3 - 5.1 mmol/L [facility] Chloride 108 96 - 108 mmol/L [facility] Carbon Dioxide 19(L) 22 - 29 mmol/L [facility] Anion Gap 12 12 - 20 [facility] Urea Nitrogen (BUN) 7(L) 9 - 16 mg/dL [facility] Creatinine, Serum 0.87 0.5 - 1.4 mg/dL [facility] Creatinine Clr Calc Pharmacy 80.4 [facility] Comment:eGFR (calculated fro m the MDRD study equation) and eCrCl(calculated from the Cockcroft-Gault equation) are based ondifferent parameters and may not yield comparable results.If eCrCl result is absurd, please check patient'sheight/weight. Estimated Glomerular Filt Rate >60 [facility] Comment:Chronic Kidney Disea se: Estimated GFR < 60 mL/min/1.94j2Qeedaq Kidney Disease: Estimated GFR < 15 mL/min/1.73m2 Glucose 109 60 - 115 mg/dL [facility] Calcium 7.8(L) 8.4 - 10.2 mg/dL [facility] 10/21/2024 7:40 AM EST 10/21/2024 7:51 AM EST us Generic External Data Provider LAB BLOOD ORDERAB LES Final Result Performing Organization Address City/[facility]/ZIP Co de Phone Number [facility] [address] [place] [phone] * (ABNORMAL) Prothrombin Time-INR (10/21/2024 5:28 AM EST) Prothrombin Time 18.5(H) 10.9 - 12.4 SEC [facility] INTERNATIONAL NORM RATIO 1.6(H) 0.9 - 1.1 [facility] Comment:INTERNATIONAL NORMAL IZED RATIO (INR) REFERENCE RANGES Reference RangeFor patients not on anticoagulant therapy: 0.9 - 1.1INR ranges for oral anticoagulanttherapy:For prevention and treatment of venous thrombosis and pulmonary embolism: 2.0 - 3.0For acute myocardial infarction with aspirin therapy: 2.0 - 3.0For acute myocardial infarction without aspirin therapy: 3.0 - 4.0For patients with mechanical prosthetic heart valves: 2.5 - 3.5 10/21/2024 5:28 AM EST 10/21/2024 5:32 AM EST Generic External Data Provider LAB BLOOD ORDERAB LES Final Result Performing Organization Address City/State/[facility] Co de Phone Number [facility] [address] [place] [phone] * XR Chest 1 View (10/21/2024 5:23 AM EST) Anatomical Region Laterality Modality Chest Radiographic Lamar ging 10/21/2024 5:23 AM EST Narrative 10/21/2024 8:14 AM EST ? [facility] ?[address] ?[place] [address] ?XRay Report ? Signed ? Patient: Delgado,Charbel ?MR#: [id number] ? : 1970 ?Acct:[id number] ? Age/Sex: 54 / M ?ADM Date: 12/08/24 ? Loc: HO.ED ? Attending Dr: ? Ordering Physician: Jesus Manuel Chinchilla MD ?? Date of Service: 10/21/24 ?? Procedure(s): XR chest 1V ?? Accession Number(s): [id number] ? cc: [facility]; Jesus Manuel Chinchilla MD ? EXAMINATION: ?? XR CHEST ? CLINICAL INFORMATION: ?? SOB ? COMPARISON: ?? 10/12/2024 ? TECHNIQUE: ?? Single AP view of the chest was obtained. ? FINDINGS: ?? The cardiomediastinal silhouette is stable. There is no gross ?? pneumothorax. Lung volumes are low. ? Increased diffuse interstitial opacities and increased bibasilar patchy ?? and streaky opacities. Possible trace bilateral pleural effusions. ? XR/XR chest 1V ?? IMPRESSION: ?? Increased diffuse interstitial opacities and increased bibasilar patchy ?? and streaky opacities. Possible trace bilateral pleural effusions. ? This study was presented today October 16, 2024 for interpretation. ?? Stat results provided at this time as requested by referring provider. ? Electronically signed by: ??Elvira Chaudhary MD ??10/21/2024 08:11 AM EST ? Dictated By: ?Elvira Chaudhary MD ? Signed By: ?<Electronically signed by Elvira Chaudhary MD in OV> ? 10/21/24 0811 ? DD/ 0523 ? TD/TT: 10/21/24 06 ? Vault Teller: ? Procedure Note Renato Winter - 10/21/2024 [place] [address] XRay Report Signed Patient: Isaias Delgado#: [id number] : 1970Acct:[id number] Age/Sex: 54 / MADM Date: 10/20/24 Loc: HO.ED Attending Dr: Ordering Physician: Jesus Manuel Chinchilla MD Date of Service: 10/21/24 Procedure(s): XR chest 1V Accession Number(s): [id number] cc: [facility]; Jesus Manuel Chinchilla MD EXAMINATION: XR CHEST CLINICAL INFORMATION: SOB COMPARISON: 10/12/2024 TECHNIQUE: Single AP view of the chest was obtained. FINDINGS: The cardiomediastinal silhouette is stable. There is no gross pneumothorax. Lung volumes are low. Increased diffuse interstitial opacities and increased bibasilar patchy and streaky opacities. Possible trace bilateral pleural effusions. XR/XR chest 1V IMPRESSION: Increased diffuse interstitial opacities and increased bibasilar patchy and streaky opacities. Possible trace bilateral pleural effusions. This study was presented today October 16, 2024 for interpretation. Stat results provided at this time as requested by referring provider. Electronically signed by: Elvira Chaudhary MD 10/21/2024 08:11 AM EST Dictated By: Elvira Chaudhary MD Signed By: <Electronically signed by Elvira Chaudhary MD in OV> 10/21/24 0811 DD/ 2 TD/TT: 10/21/24 06 Vault Teller: [facility] External Provider IMG XR PROCEDURES Final Result * Slide Review (10/17/2024 6:52 PM EST) Slide Review VERIFIED [facility] 10/17/2024 6:52 PM EST 10/17/2024 6:54 PM EST Generic External Data Provider LAB BLOOD ORDERAB LES Final Result [facility] [address] [place] [phone] * (ABNORMAL) Hepatic Function Panel (10/17/2024 6:52 PM EST) Bilirubin, Total 1.9(H) 0.0 - 1.0 mg/dL [facility] Bilirubin, Direct 1.2(H) 0.0 - 0.5 mg/dL [facility] Aspartate Amino Transferase 165(H) 5 - 37 U/L [facility] Alanine Aminotransferase 24 0 - 40 U/L [facility] Total Protein 9.1(H) 6.5 - 8.0 g/dL [facility] Albumin Level 2.7(L) 3.5 - 5.0 g/dL [facility] Alkaline Phosphatase 118(H) 39 - 117 U/L [facility] 10/17/2024 6:52 PM EST 10/17/2024 6:54 PM EST Generic External Data Provider LAB BLOOD ORDERAB LES Final Result Performing Organization Address [facility] Co de Phone Number [facility] [address] [place] [phone] * Blood Culture (First) (10/12/2024 11:55 PM EST) Blood Venous blood specimen / Unknown 10/12/2024 11:55 PM EST 10/13/2024 12:06 AM EST Comment:Blood Narrative [facility] - 10/18/2024 2:06 AM EST Blood Culture (First) No growth after 5 days. Specimen Source: Blood Generic External Data Provider LAB MICROBIOLOGY - GENERAL ORDERABLES Final Result Performing Organization Address [facility] Co de Phone Number [facility] [address] [place] [phone] * Blood Culture (Second) (10/12/2024 11:55 PM EST) Blood Venous blood specimen / Unknown 10/12/2024 11:55 PM EST 10/13/2024 12:06 AM EST Comment:Blood [facility] - 10/18/2024 2:06 AM EST Blood Culture (Second) No growth after 5 days. Specimen Source: Blood Generic External Data Provider LAB MICROBIOLOGY - GENERAL ORDERABLES Final Result Performing Organization Address [facility] Co de Phone Number [facility] [address] [place] [phone] from Last 3 Months Insurance [facility] [employer] [employer]
--- OUTSIDE RECORDS SUMMARY | 2024-12-09 06:14 | XMS_ITS | Encounter Summary ---
Author Organization [employer] Address [address] [facility] 7t [place] [address] Care Team Providers Care Adult Neurologist Name Role Phone Unavailable Primary Care Provider Unavailabl e Encounter Details Date Type Department Care Team (Late st Contact Info) Description 11/28/2024 Orders Only [facility] External Provider, [facility] Social History Tobacco Use Types Packs/Day Years [...] EST Narrative 11/29/2024 5:16 AM EST ? [facility] ?[address] ?[place] [address] ? CT Scan Report ? Signed ? Patient: Delgado,Charbel ?MR#: [id number] ? : 1970 ?Acct:[id number] ? Age/Sex: 54 / M ?ADM Date: 01/16/25 ? Loc: HO.ED ? Attending Dr: ? Ordering Physician: Trudy Brannon ?? Date of Service: 11/29/24 ?? Procedure(s): CT chest w IV con ?? Accession Number(s): [id number] ? cc: Trudy Brannon; [facility] ? Report Number: ?? [id number]: Total DLP = ??248.00 mGy-cm ? CLINICAL HISTORY: infection, aspiraion ? CT chest with contrast ? Comparison: None ? Findings: ?? The heart is enlarged with roei-fh-ctpfxsuw coronary calcium. No ?? pericardial effusion. No [...] DD/ 0514 ? TD/TT: 11/29/24 0514 ? Human Factors Ergonomist: ? Procedure Note Moy, Renato - 11/29/[address] [address] [address] Scan Report Signed Patient: Isaias Delgado#: [id number] : 1970Acct:[id number] Age/Sex: 54 / MADM Date: 11/28/24 Loc: HO.ED Attending Dr: Ordering Physician: Trudy Brannon Date of Service: 11/29/24 Procedure(s): CT chest w IV con Accession Number(s): [id number] cc: Trudy Brannon; [facility] Report Number: [id number]: Total DLP = 248.00 mGy-cm CLINICAL HISTORY: infection, aspiraion CT chest with contrast Comparison: None Findings: The heart is enlarged with lseq-an-fyfccybj coronary calcium. No pericardial effusion. No adenopathy. [...] in OV> 11/29/24 0515 DD/ TD/TT: 11/29/2414 Human Factors Ergonomist: [facility] External Provider IMG CT PROCEDURES Edited Result - Final * CT Abdomen Pelvis w/ Contrast (11/29/2024 5:14 AM EST) Anatomical Region Laterality Modality Body, Pelvis, Abdomen Computed T omography 11/29/2024 5:14 AM EST Narrative 11/29/2024 5:16 AM EST ? [facility] ?[address] ?[place] [address] ? CT Scan Report ? Signed ? Patient: Delgado,Charbel ?MR#: [id number] ? : 1970 ?Acct:[id number] ? Age/Sex: 54 / M ?ADM Date: 01/16/25 ? Loc: HO.ED ? Attending Dr: ? Ordering Physician: Trudy Brannon ?? Date of Service: 11/29/24 ?? Procedure(s): CT abdomen pelvis w IV con ?? Accession Number(s): [id number] ? cc: Trudy Brannon; [facility] ? Report Number: ?? [id number]: Total DLP = ??512.00 mGy-cm ? CLINICAL [...] DD/ 0514 ? TD/TT: 11/29/24 0514 ? Human Factors Ergonomist: ? Procedure Note Renato Winter - 11/29/[address] [address] [address] Scan Report Signed Patient: Isaias Delgado#: [id number] : 1970Acct:[id number] Age/Sex: 54 / MADM Date: 11/28/24 Loc: HO.ED Attending Dr: Ordering Physician: Trudy Brannon Date of Service: 11/29/24 Procedure(s): CT abdomen pelvis w IV con Accession Number(s): [id number] cc: Trudy Brannon; [facility] Report Number: [id number]: Total DLP = 512.00 mGy-cm CLINICAL HISTORY: [...] 11/29/24 0515 DD/ 0514 TD/TT: 11/29/24 0514 Human Factors Ergonomist: [facility] External Provider IMG CT PROCEDURES Edited Result - Final documented in this encounter Visit Diagnoses Not on filedocumented in this encounter
--- OUTSIDE RECORDS SUMMARY | 2024-12-09 06:14 | XMS_ITS | Encounter Summary ---
Author Organization [employer] Address [address] [facility] 7t [place] [address] Care Team Providers Care Trackman Name Role Phone Unavailable Primary Care Provider [...] Ammonia (P) 70(H) 13 - 55 umol/L [facility] Comment:Slight Hemolysis.Int erpret result with caution. 11/27/2024 3:08 PM EST 11/27/2024 3:12 PM EST Generic External Data Provider LAB BLOOD ORDERAB LES Final Result Performing Organization Address [facility]/ZIP Co de Phone Number [facility] [address] [place] [phone] * (ABNORMAL) Ethanol (11/27/2024 3:05 PM EST) Pathologist [facility] [place] ETHANOL (MG/DL) IN SER/PLAS 316(HH) mg/dL [facility] Comment:Serum/plasma ethanol results are to be used formedical/treatment purposes only. 11/27/2024 3:05 PM EST 11/27/2024 3:12 PM EST Generic External Data Provider LAB BLOOD ORDERAB LES Final Result Performing Organization Address [facility] de Phone Number [facility] [address] [place] [phone] * (ABNORMAL) Comprehensive Metabolic Panel (11/27/2024 3:05 PM EST) Pathologist [facility] [place] Sodium 141 135 - 145 mmol/L [facility] Potassium 3.6 3.3 - 5.1 mmol/L [facility] Chloride 107 96 - 108 mmol/L [facility] Carbon Dioxide 21(L) 22 - 29 mmol/L [facility] Anion Gap 17 12 - 20 [facility] Urea Nitrogen (BUN) 16 9 - 16 mg/dL [facility] Creatinine, Serum 0.79 0.5 - 1.4 mg/dL [facility] Creatinine Clr Calc Pharmacy 81.3 [facility] Comment:eGFR (calculated fro m the MDRD study equation) and eCrCl(calculated from the Cockcroft-Gault equation) are based ondifferent parameters and may not yield comparable results.If eCrCl result is absurd, please check patient'sheight/weight. Estimated Glomerular Filt Rate >60 [facility] Comment:Chronic Kidney Disea se: Estimated GFR < 60 mL/min/1.51b8Eqspgi Kidney Disease: Estimated GFR < 15 mL/min/1.73m2 Glucose 145(H) 60 - 115 mg/dL [facility] Calcium 9.4 8.4 - 10.2 mg/dL [facility] Bilirubin, Total 1.4(H) 0.0 - 1.0 mg/dL [facility] Aspartate Amino Transferase 60(H) 5 - 37 U/L [facility] Alanine Aminotransferase 33 0 - 40 U/L [facility] Total Protein 9.3(H) 6.5 - 8.0 g/dL [facility] Albumin Level 4.3 3.5 - 5.0 g/dL [facility] Alkaline Phosphatase 155(H) 39 - 117 U/L [facility] 11/27/2024 3:05 PM EST 11/27/2024 3:12 PM EST us Generic External Data Provider LAB BLOOD ORDERAB LES Final Result [facility] [address] [place] [phone] * (ABNORMAL) CBC auto differential (11/27/2024 3:05 PM EST) White Blood Count 5.6 4.8 - 10.8 X10*3/uL [facility] Red Blood Count 2.74(L) 4.60 - 5.80 X10*6/uL [facility] Hemoglobin 9.2(L) 14.0 - 18.0 g/dl [facility] Hematocrit 27.9(L) 42.0 - 52.0 % [facility] Mean Corpuscular Volume 101.8(H) 80.0 - 98.0 fL [facility] Mean Corpuscular Hemoglobin 33.6(H) 27.0 - 33.0 pg [facility] Mean Corpuscular HGB Conc 33.0 31.0 - 36.0 g/dl [facility] Red Cell Distribution Width 14.6 11.0 - 16.0 % [facility] Platelet Count 55(L) 160 - 400 X10*3/uL [facility] Mean Platelet Volume 12.2 9.4 - 12.4 fL [facility] Neutrophils Percent Auto 89.7(H) 45 - 73 % [facility] Imm Gran Pct Auto 0.4 0.0 - 0.4 % [facility] Lymphocytes Percent Auto 5.7(L) 20 - 40 % [facility] Monocytes Percent Auto 3.6 2 - 11 % [facility] Eosinophils Percent Auto 0.2 0 - 4 % [facility] Basophils Percent Auto 0.4 0 - 2 % [facility] NRBC Pct Auto 0.0 0.0 - 0.2 /100WBC [facility] Neutrophils Absolute Auto 5.1 2.0 - 8.3 x10*3/uL [facility] Imm Gran Abs Auto 0.02 0.00 - 0.03 X10*3/uL [facility] Lymphocytes Absolute Auto 0.3(L) 1.2 - 4.9 X10*3/uL [facility] Monocytes Absolute Auto 0.2 0.1 - 1.2 X10*3/uL [facility] Eosinophils Absolute Auto 0.0 0.0 - 0.4 X10*3/uL [facility] Basophils Absolute Auto 0.0 0.0 - 0.2 X10*3/uL [facility] NRBC Abs Auto 0.000 0.0 - 0.012 X10*3/uL [facility] 11/27/2024 3:05 PM EST 11/27/2024 3:12 PM EST us Generic External Data Provider LAB BLOOD ORDERAB LES Final Result [facility] [address] [place], [place] [address], [place] [phone] * XR Foot 3+ Views Left (11/27/2024 2:55 PM EST) Anatomical Region Laterality Modality Lower Extremities, Foot Left Radiogra phic Imaging 11/27/2024 2:55 PM EST Narrative 11/27/2024 3:58 PM EST ? [facility] ?[address] ?[place] [address] ?XRay Report ? Signed ? Patient: Delgado,Charbel ?MR#: [id number] ? : 1970 ?Acct:[id number] ? Age/Sex: 54 / M ?ADM Date: 11/27/24 ? Loc: HO.ED ? Attending Dr: ? Ordering Physician: Bautista Gomes DO ?? Date of Service: 11/27/24 ?? Procedure(s): XR foot LT min 3V ?? Accession Number(s): [id number] ? cc: [facility]; Bautista Gomes DO ? EXAMINATION: ?? [...] DD/ 1455 ? TD/TT: 11/27/24 1542 ? Lime Kiln Worker: ? Procedure Note Moy, Image - 11/27/[address] [address] XRay Report Signed Patient: Isaias Delgado#: [id number] : 1970Acct:[id number] Age/Sex: 54 / MADM Date: 11/27/24 Loc: HO.ED Attending Dr: Ordering Physician: Bautista Gomes DO Date of Service: 11/27/24 Procedure(s): XR foot LT min 3V Accession Number(s): [id number] cc: [facility]; Bautista Gomes DO EXAMINATION: XR FOOT, [...] 11/27/24 1555 DD/ 1455 TD/TT: 11/27/24 1542 Lime Kiln Worker: [facility] External Provider IMG XR PROCEDURES Final Result * XR Ankle 3+ Views Left (11/27/2024 2:55 PM EST) Anatomical Region Laterality Modality Lower Extremities, Ankle Left Radiogr aphic Imaging 11/27/2024 2:55 PM EST Narrative 11/27/2024 3:56 PM EST ? [facility] ?[address] ?[place] [address] ?XRay Report ? Signed ? Patient: Delgado,Charbel ?MR#: [id number] ? : 1970 ?Acct:[id number] ? Age/Sex: 54 / M ?ADM Date: 11/27/24 ? Loc: HO.ED ? Attending Dr: ? Ordering Physician: Bautista Gomes DO ?? Date of Service: 11/27/24 ?? Procedure(s): XR ankle LT min 3V ?? Accession Number(s): [id number] ? cc: [facility]; Bautista Gomes DO ? EXAMINATION: ?? [...] DD/ 1455 ? TD/TT: 11/27/24 1542 ? Lime Kiln Worker: ? Procedure Note Renato Winter - 11/27/[address] [address] XRay Report Signed Patient: Isaias Delgado#: [id number] : 1970Acct:[id number] Age/Sex: 54 / MADM Date: 11/27/24 Loc: HO.ED Attending Dr: Ordering Physician: Bautista Gomes DO Date of Service: 11/27/24 Procedure(s): XR ankle LT min 3V Accession Number(s): [id number] cc: [facility]; Bautista Gomes DO EXAMINATION: XR ANKLE, [...] 11/27/24 1553 DD/ 1455 TD/TT: 11/27/24 1542 Lime Kiln Worker: [facility] External Provider IMG XR PROCEDURES Final Result * XR Ankle 3+ Views Right (11/27/2024 2:55 PM EST) Anatomical Region Laterality Modality Lower Extremities, Ankle Right Radiogr aphic Imaging 11/27/2024 2:55 PM EST Narrative 11/27/2024 3:55 PM EST ? [facility] ?[address] ?[place] [address] ?XRay Report ? Signed ? Patient: Delgado,Charbel ?MR#: [id number] ? : 1970 ?Acct:[id number] ? Age/Sex: 54 / M ?ADM Date: 11/27/24 ? Loc: HO.ED ? Attending Dr: ? Ordering Physician: Bautista Gomes DO ?? Date of Service: 11/27/24 ?? Procedure(s): XR ankle RT min 3V ?? Accession Number(s): [id number] ? cc: [facility]; Bautista Gomes DO ? EXAMINATION: ?? [...] DD/ 1455 ? TD/TT: 11/27/24 1542 ? Lime Kiln Worker: ? Procedure Note Moy, Image - 11/27/2024 [place] [address] XRay Report Signed Patient: Isaias Delgado#: [id number] : 1970Acct:[id number] Age/Sex: 54 / MADM Date: 11/27/24 Loc: HO.ED Attending Dr: Ordering Physician: Bautista Gomes DO Date of Service: 11/27/24 Procedure(s): XR ankle RT min 3V Accession Number(s): [id number] cc: [facility]; Bautista Gomes DO EXAMINATION: XR ANKLE, [...] 11/27/24 1552 DD/ 1455 TD/TT: 11/27/24 1542 Lime Kiln Worker: [facility] External Provider IMG XR PROCEDURES Final Result * XR Foot 3+ Views Right (11/27/2024 2:55 PM EST) Anatomical Region Laterality Modality Lower Extremities, Foot Right Radiogra phic Imaging 11/27/2024 2:55 PM EST Narrative 11/27/2024 3:52 PM EST ? [facility] ?[address] ?[place] [address] ?XRay Report ? Signed ? Patient: Delgado,Charbel ?MR#: [id number] ? : 1970 ?Acct:[id number] ? Age/Sex: 54 / M ?ADM Date: 11/27/24 ? Loc: HO.ED ? Attending Dr: ? Ordering Physician: Bautista Gomes DO ?? Date of Service: 11/27/24 ?? Procedure(s): XR foot RT min 3V ?? Accession Number(s): [id number] ? cc: [facility]; Bautista Gomes DO ? EXAMINATION: ?? [...] DD/ 1455 ? TD/TT: 11/27/24 1542 ? Lime Kiln Worker: ? Procedure Note Donamaya, Image - 11/27/[address] [address] XRay Report Signed Patient: Isaias Delgado#: [id number] : 1970Acct:[id number] Age/Sex: 54 / MADM Date: 11/27/24 Loc: HO.ED Attending Dr: Ordering Physician: Bautista Gomes DO Date of Service: 11/27/24 Procedure(s): XR foot RT min 3V Accession Number(s): [id number] cc: [facility]; Bautista Gomes DO EXAMINATION: XR FOOT, [...] by: Eric Steele MD 11/27/2024 03:50 PM [facility] Dictated By: Eric Nobles MD Signed By: <Electronically signed by Eric Kown MDin OV> 11/27/24 1550 DD/ 1455 TD/TT: 11/27/24 1542 Lime Kiln Worker: [facility] External Provider IMG XR PROCEDURES Final Result documented in this encounter Visit Diagnoses Not on filedocumented in this encounter
--- OUTSIDE RECORDS SUMMARY | 2024-12-09 06:14 | XMS_ITS | Encounter Summary ---
Author Organization [employer] Address [address] [facility] 7t [place] [address] Care Team Providers Care Habilitation Assistant Name Role Phone Unavailable Primary Care Provider [...] EST Narrative 11/30/2024 2:17 AM EST ? [facility] ?[address] ?[place] [address] ? CT Scan Report ? Signed ? Patient: Charbel Delgado ?MR#: [id number] ? : 1970 ?Acct:[id number] ? Age/Sex: 54 / M ?ADM Date: 11/29/24 ? Loc: HO.IMC ?474-1 ? Attending Dr: Yazmin WALLACE ? Ordering Physician: Yazmin Shafer ?? Date of Service: 11/30/24 ?? Procedure(s): CT head/brain wo IV con ?? Accession Number(s): [id number] ? cc: Yazmin Shafer; [facility] ? Report Number: ?? [id number]: Total DLP = ??643.00 mGy-cm ? CLINICAL [...] ? DD/ 3 ? TD/TT: 11/30/24213 ? Manager Architecture: ? Procedure Note Donotuseinterpreter, Image - 11/30/[address] [place] [address] [address] Scan Report Signed Patient: Isaias Delgado#: [id number] : 1970Acct:[id number] Age/Sex: 54 / MADM Date: 11/29/24 Loc: [facility] 474-[address]: Yazmin WALLACE Ordering Physician: Yazmin Shafer Date of Service: 11/30/24 Procedure(s): CT head/brain wo IV con Accession Number(s): [id number] cc: Yazmin Shafer; [facility] Report Number: [id number]: Total DLP = 643.00 mGy-cm CLINICAL HISTORY: [...] in OV> 11/30/24214 DD/ 3 TD/TT: 11/30/24213 Manager Architecture: [facility] External Provider IMG CT PROCEDURES Final Result * Lactic Acid (11/29/2024 3:39 AM EST) Lactic Acid 1.1 0.5 - 2.0 mmol/L [facility] 11/29/2024 3:39 AM EST 11/29/2024 3:44 AM EST Generic External Data Provider LAB BLOOD ORDERAB LES Final Result Performing Organization Address [facility] Co de Phone Number [facility] [address] [place] [phone] * SARS-CoV-2 RNA, Influenza A/B, and RSV RNA, Ql NAAT (11/29/2024 2:29 AM EST) [facility] Influenza A PCR NEGATIVE Negative [facility] Influenza B PCR NEGATIVE Negative [facility] Resp Syncy Virus RNA Qual PCR NEGATIVE Negative [facility] SARS COV2 PCR NEGATIVE Negative [facility] Comment:All test results mus t [...] use by authorized laboratories.Testing performed on the [employer] GeneXpert utilizingreal-time RT-PCR.All SARS CoV2 and positive influenza A/B results arereported to [facility]. 11/29/2024 2:29 AM EST 11/29/2024 2:33 AM EST Generic External Data Provider LAB MICROBIOLOGY - GENERAL ORDERABLES Final Result Performing Organization Address [facility]/ZIP Co de Phone Number [facility] [address] [place] [phone] * (ABNORMAL) Magnesium (11/29/2024 2:29 AM EST) Pathologist [facility] Magnesium 1.4(LL) 1.6 - 2.6 mg/dL [facility] Comment:Critical value for t est(s):MAGNESIUM Results called to gildardo back by:ALIA Person calling:ALEate:11/29/24 Time:0302 11/29/2024 2:29 AM EST 11/29/2024 2:33 AM EST Generic External Data Provider LAB BLOOD ORDERAB LES Final Result Performing Organization Address [facility] Co de Phone Number [facility] [address] [place] [phone] * Ethanol (11/29/2024 2:29 AM EST) [facility] ETHANOL (MG/DL) IN SER/PLAS <10 mg/dL [facility] Comment:Serum/plasma ethanol results are to be used formedical/treatment purposes only. 11/29/2024 2:29 AM EST 11/29/2024 2:33 AM EST Generic External Data Provider LAB BLOOD ORDERAB LES Final Result Performing Organization Address [facility] de Phone Number [facility] [address] [place] [phone] * Lipase (11/29/2024 2:29 AM EST) [facility] Lipase 45 8 - 78 U/L [facility] 11/29/2024 2:29 AM EST 11/29/2024 2:33 AM EST Generic External Data Provider LAB BLOOD ORDERAB LES Final Result Performing Organization Address [facility] Phone Number [facility] [address] [place] [phone] * (ABNORMAL) Comprehensive Metabolic Panel (11/29/2024 2:29 AM EST) Sodium 138 135 - 145 mmol/L [facility] Potassium 3.7 3.3 - 5.1 mmol/L [facility] Chloride 105 96 - 108 mmol/L [facility] Carbon Dioxide 23 22 - 29 mmol/L [facility] Anion Gap 14 12 - 20 [facility] Urea Nitrogen (BUN) 29(H) 9 - 16 mg/dL [facility] Creatinine, Serum 0.73 0.5 - 1.4 mg/dL [facility] Creatinine Clr Calc Pharmacy 92.8 [facility] Comment:eGFR (calculated fro m the MDRD study equation) and eCrCl(calculated from the Cockcroft-Gault equation) are based ondifferent parameters and may not yield comparable results.If eCrCl result is absurd, please check patient'sheight/weight. Estimated Glomerular Filt Rate >60 [facility] Comment:Chronic Kidney Disea se: Estimated GFR < 60 mL/min/1.00z3Ogfwtb Kidney Disease: Estimated GFR < 15 mL/min/1.73m2 Glucose 116(H) 60 - 115 mg/dL [facility] Calcium 8.7 8.4 - 10.2 mg/dL [facility] Bilirubin, Total 1.8(H) 0.0 - 1.0 mg/dL [facility] Comment:Slight Icterus. Aspartate Amino Transferase 47(H) 5 - 37 U/L [facility] Alanine Aminotransferase 19 0 - 40 U/L [facility] Total Protein 7.2 6.5 - 8.0 g/dL [facility] Albumin Level 3.3(L) 3.5 - 5.0 g/dL [facility] Alkaline Phosphatase 180(H) 39 - 117 U/L [facility] 11/29/2024 2:29 AM EST 11/29/2024 2:33 AM EST us Generic External Data Provider LAB BLOOD ORDERAB LES Final Result [facility] [address] [place] [phone] * (ABNORMAL) CBC auto differential (11/29/2024 2:29 AM EST) White Blood Count 5.5 4.8 - 10.8 X10*3/uL [facility] Red Blood Count 2.26(L) 4.60 - 5.80 X10*6/uL [facility] Hemoglobin 7.5(L) 14.0 - 18.0 g/dl [facility] Hematocrit 22.2(L) 42.0 - 52.0 % [facility] Mean Corpuscular Volume 98.2(H) 80.0 - 98.0 fL [facility] Mean Corpuscular Hemoglobin 33.2(H) 27.0 - 33.0 pg [facility] Mean Corpuscular HGB Conc 33.8 31.0 - 36.0 g/dl [facility] Red Cell Distribution Width 14.4 11.0 - 16.0 % [facility] Platelet Count 33(L) 160 - 400 X10*3/uL [facility] Mean Platelet Volume 11.9 9.4 - 12.4 fL [facility] Neutrophils Percent Auto 86.7(H) 45 - 73 % [facility] Imm Gran Pct Auto 0.4 0.0 - 0.4 % [facility] Lymphocytes Percent Auto 5.9(L) 20 - 40 % [facility] Monocytes Percent Auto 4.8 2 - 11 % [facility] Eosinophils Percent Auto 2.0 0 - 4 % [facility] Basophils Percent Auto 0.2 0 - 2 % [facility] NRBC Pct Auto 0.0 0.0 - 0.2 /100WBC [facility] Neutrophils Absolute Auto 4.8 2.0 - 8.3 x10*3/uL [facility] Imm Gran Abs Auto 0.02 0.00 - 0.03 X10*3/uL [facility] Lymphocytes Absolute Auto 0.3(L) 1.2 - 4.9 X10*3/uL [facility] Monocytes Absolute Auto 0.3 0.1 - 1.2 X10*3/uL [facility] Eosinophils Absolute Auto 0.1 0.0 - 0.4 X10*3/uL [facility] Basophils Absolute Auto 0.0 0.0 - 0.2 X10*3/uL [facility] NRBC Abs Auto 0.000 0.0 - 0.012 X10*3/uL [facility] 11/29/2024 2:29 AM EST 11/29/2024 2:33 AM EST us Generic External Data Provider LAB BLOOD ORDERAB LES Final Result [facility] [address] [place] [phone] documented in this encounter Visit Diagnoses Not on filedocumented in this encounter
--- OUTSIDE RECORDS SUMMARY | 2024-12-09 06:14 | XMS_ITS | Data Portability ---
Author Organization [facility], Main Office Address [address] [place] [address] [address] [place] [address] Care Team Providers Care Account Adjuster Name Role Phone [facility] OTHER Assessment Encounter Date Assessment Date [...] Address Organization Details Recorded Time Alcohol abuse 65138834 Active 2022 HALEY WYATT [address] [facility], [address], [place], [address], [facility] 16:10:20 Alcoholic cirrhosis 172671862 Active 2022 HALEY WYATT [address] [facility], [address], [place], [address], [facility] 16:10:32 Anemia 398180013 Active 2022 HALEY WYATT [address] [facility], [address], [place], [address], [facility] 16:10:45 Hepatic encephalop athy 25949662 Active 2022 HALEY WYATT [address] [facility], [address], [place], [address], [facility] 16:11:37 Acute respirator y failure 20794391 Active 2022 HALEY WYATT [address] [facility], [address], [place], [address], [facility] 16:12:23 Laboratory finding abnormal Active 2022 hypokalemi a hypomagnes ium pancytopen ua repleted in acute care. mag oxide 400 mg BID HALEY WYATT [address] [facility], [address], [place], [address], [facility] 16:40:30 Congestive heart failure 64924707 Active 2022 HALEY WYATT [address] [facility], [address], [place], [address], [facility] 3 16:25:07 Homeless 25382846 Active 2022 ANDREYHALEY GASPAR [address] [facility], [address], [place], [address], [facility] 3 16:55:00 Pancytopen ia 617648811 Active 2022 ANDREYHALEY GASPAR [address] [facility], [address], [place], [address], [facility] 3 21:48:09 Esophageal varices 37466461 Active 2022 HALEY WYATT [address] [facility], [address], [place], [address], [facility] 16:19:34 Problem Notes None recorded. [...] 110 mm[Hg] 70 mm[Hg] Lis Oconnell MD [address] [place] [address], [facility] [address], [place], [address], [facility] 08:21:06 Date Recorded Heart rate Respiratory rate Body temperature Oxygen saturation Oxygen saturation in Arterial blood by Pulse oximetry Systolic blood pressure Diastolic blood pressure Provider Name and Address Organization Details Last Updated DateTime 4 67 /min 16 /min 97.6 [degF] 95 % 95 % 107 mm[Hg] 66 mm[Hg] BRADY HOGAN NP [address] [facility], [address], [place], [address], [facility] 10:20:23 Social History Question Answer Notes LastModified by Organizat ion Details LastModified Time Tobacco Smoking Status Former Smoker ANDREY RODRIGUEZHALEY CRUZ [address] [facility], [address], [place], [address], [employer] [facility] 09/12/2023 16:57:06 Do You Have An [...] Do You Have A Medical Power Of Operating Room Specialist? No HCP/brother Information not available 09/12/2023 What [...] mcg/0.3 mL dose 3 completed Mojgan jain [facility] 11/10/2023 13:12:58 Tdap 1 completed Mojgan jain [facility] 03/01/2024 11:01:29 Td (adult), 5 Lf tetanus toxoid, preservative free, adsorbed 7 completed Mojgan jain [place] [facility] 03/01/2024 11:06:00 Past Encounters Encounter ID Performer Location Encounter Start Date Encounter Closed Date Diagnosis/Indication Diagnosis SNOMED-CT Code Diagnosis ICD10 Code Diagnosis Note [id number] HALEY WYATT [facility] on [address] [place] [address] 09/12/2023 08:36:44 09/15/2023 08:04:55 Hepatic encephalopathy 81058476 K76.82 resolved in acute care/see hpistarted on lactuloser ifaximin 550 mg BIDlactulo se 40 g TID. Acute resp iratory failure 74794462 J96.00 with hypoxia d/t to acute on chronic heart failure-di uresed w/IV lasix resolved in acute care Anemia 416071335 D64.9 see hpiCT scan with distal esophageal varices.- EGD suspected gastric varies as source of bleedfollo w up with GI in 4 weeks for repeat EGD Congestive heart failure 28634490 I50.9 with preserved ejection fractionCT scan showed small plueral effusionCX R with bibasilar opacitiesc ontinue furosemide 20 mg BIDcontinu e spironolac tone 12.5 mg BIDlow salt diet.monit or weight Alcohol abuse 46973665 F 10.10 with acute withdrawal in acute care tx with phenobarbi germania taper.decl ined recovery support in acute carethiami ne 100 mg dailyfolic acid 1 mg daily Bleeding g astric varices 85698780 I86.4 source of anemiaomep razole [address] dailysucra lfate 1 gm BIDcontinu e PPI and sucralfate Homeless 52482750 Z59.00 Social service refer for community resources. [id number] Lis Oconnell MD [facility] on [address] [place] [address] 09/13/2023 05:12:10 09/15/2023 08:33:31 Acute on chronic diastolic heart failure 342618164 I50.33 improved:s pironolact one 12.5 mg bidfurosem eliana 20 mg bidwill monitor Alcohol abuse 06030935 F 10.10 thiamine 100 mg dailyfolic acid 1 gm dailyinter disciplina ry support for sobrietywi ll monitor and support as needed Bleeding e sophageal varices 73864266 I85.01 s/p blood transfusio ns, octeotride , banding/he mospray:om eprazole 40 mg dailysucra lfate 1 gm bidwill monitor Alcoholic cirrhosis 4200 69618 K70.31 Xifaxan 550 mg bidspirono lactone 12.5 mg bidfurosem eliana 20 mg bidwill monitor Hepatic encephalopathy 73824578 K76.82 lactulose 40 gm tidwill monitor [id number] HALEY WYATT [facility] on [address] [place] [address] 09/18/2023 11:37:36 09/20/2023 15:12:00 Congestive heart failure 23694617 I50.9 continue furosemide 20 mg BIDcontinu e spironolac tone 12.5 mg BIDlow salt diet.monit or weight Alcohol abuse 84374382 F 10.10 will consider acamprosta te 666 mg TID.thiami ne 100 mg dailyfolic acid 1 mg daily Bleeding g astric varices 07544353 I86.4 source of anemiaomep razole [address] dailysucra lfate 1 gm BIDcontinu e PPI and sucralfate Hepatic encephalopathy 81310805 K76.82 resolved in acute care/see hpistarted on lactuloser ifaximin 550 mg BIDlactulo se 40 g TID.- reports loose stool x's 1 daily. will continue to monitor for now . [id number] HALEY WYATT [facility] on [address] [place] [address] 10/06/2023 10:25:53 10/18/2023 12:16:47 Altered mental status 059881929 R41.82 see hpiconcern for hepatic encephalop athy due to hxsend to ER for further evaluation [id number] HALEY WYATT [facility] on [address] [place] [address] 10/12/2023 13:49:36 10/18/2023 15:10:16 Hepatic encephalopathy 00163124 K76.82 resolved in acute care/see hpiimaging with no acute processCon tinue lactulose, rifaximin, Lasix, spironolac toneFollow -up outpatient GI Congestive heart failure 19627945 I50.9 continue furosemide 20 mg BIDcontinu e spironolac tone 12.5 mg BIDlow salt diet.monit or weight Pancytopenia 375422175 D 61.818 wbc 3.41-Hgb 7.3-HCT 23.2Possib ly due to alcohol abuseWill continue to monitor CBC [id number] HALEY WYATT [facility] on [address] [place] [address] 10/16/2023 13:03:21 11/22/2023 15:10:28 Hepatic encephalopathy 28995977 K76.82 resolved in acute care/see hpiimaging with no acute processCon tinue lactulose, rifaximin, Lasix, spironolac toneFollow -up outpatient GI Congestive heart failure 25472542 I50.9 continue furosemide 20 mg BIDcontinu e spironolac tone 12.5 mg BIDlow salt diet.monit or weight Pancytopenia 213395591 D 61.818 see aboveimpro kiki hgb 8.8- Plt 68Possibly due to alcohol abuseWill continue to monitor CBC [id number] HALEY WYATT [facility] on [address] [place] [address] 10/24/2023 11:18:12 11/03/2023 11:47:28 Hepatic encephalopathy 89437247 K76.82 alert and oriented x's 2 today unsure of date.resol kiki in acute care/see hpiimaging with no acute processCon tinue lactulose, rifaximin, Lasix, spironolac toneFollow -up outpatient GI Congestive heart failure 27013545 I50.9 Stablke, no reported sxcontinue furosemide 20 mg BIDcontinu e spironolac tone 12.5 mg BIDlow salt diet.monit or weight Pain of le ft shoulder joint 4161399041 1346251 M25.512 see hpixray 3 viewstylen ol 975 mg scheduledm otrin 600 mg scheduled. PT referral for pain with abduction. [id number] HALEY WYATT [facility] on [address] [place] [address] 10/27/2023 09:08:50 11/03/2023 12:28:46 Hepatic encephalopathy 18466368 K76.82 appears to be a baseline status, however he appears disoriente d at times.Cont inue lactulose, rifaximin, Lasix, spironolac toneFollow -up outpatient GI Congestive heart failure 01035250 I50.9 Stablecont inue furosemide 20 mg BIDcontinu e spironolac tone 12.5 mg BIDlow salt diet.monit or weight Pain of le ft shoulder joint 5476571066 9844513 M25.512 Xray completed, results reviewed with patient: Mild degenerati on of the left shoulder; no acute fracture or dislocatio n. continue with:tylen ol 975 mg scheduledm otrin 600 mg scheduled. PT referral for pain with abduction. [id number] HALEY WYATT [facility] on [address] [place] [address] 11/08/2023 08:13:22 11/22/2023 16:43:01 Daisy-Zee tear 036473192 K22.6 2 days of melena with coffee-kell und emesis on presentati on.GI consulted and performed upper endoscopy on 10/31, evidence of daisy zee tear, gastric ulcers s/p clip placement. continue PPI omeprazole 40 mg twice daily.Carv edilol started as per recommenda tions for esophageal varicesPat ient was advised to avoid NSAID Esophageal varices 29885 008 I85.00 Started on carvedilol 6.25 mg bidomepraz ole 40 mg bidsucralf ate 1 gm BID Anemia 583077295 D64.9 Hgb 6.4 on presentati on to acute careDue to upper GI bleed,Rece ived 3 units of PRBC in acute careCarved ilol started for varices [id number] HALEY WYATT [facility] on [address] [place] [address] 11/14/2023 07:57:53 12/01/2023 10:08:54 Daisy-Zee tear 416992973 K22.6 11/14 there has been no reported couging and vomiting. 2 days of melena with coffee-kell und emesis on presentati on.GI consulted and performed upper endoscopy on 10/31, evidence of daisy zee tear, gastric ulcers s/p clip placement. continue PPI omeprazole 40 mg twice daily.Carv edilol started as per recommenda tions for esophageal varicesPat ient was advised to avoid NSAID Esophageal varices 48393 008 I85.00 stableStar forrest on carvedilol 6.25 mg bidomepraz ole 40 mg bidsucralf ate 1 gm BID Anemia 317278468 D64.9 11/14will recheck labspatien t denies excess fatigue, weakness, shortness of breathdoes not appear pale, color normal. Hgb 6.4 on presentati on to acute careDue to upper GI bleed,Rece ived 3 units of PRBC in acute careCarved ilol started for varices [id number] HALEY WYATT [facility] on [address] [place] [address] 11/17/2023 08:07:13 12/01/2023 11:37:06 Daisy-Zee tear 909262385 K22.6 stable, There has been no new reported sx.2 days of melena with coffee-kell und emesis on presentati on.GI consulted and performed upper endoscopy on 10/31, evidence of daisy zee tear, gastric ulcers s/p clip placement. continue PPI omeprazole 40 mg twice daily.Carv edilol started as per recommenda tions for esophageal varicesPat ient was advised to avoid NSAID Esophageal varices 13256 008 I85.00 stableStar forrest on carvedilol 6.25 mg bidomepraz ole 40 mg bidsucralf ate 1 gm BID Anemia 092296974 D64.9 11/15: hgb 8.0 hct 25.6will recheck labs Hgb 6.4 on presentati on to acute careDue to upper GI bleed,Rece ived 3 units of PRBC in acute careCarved ilol started for varices [id number] Lis Oconnell MD [facility] on [address] [place] [address] 11/24/2023 08:20:43 11/29/2023 17:59:33 Alcohol abuse 11674616 F10.10 thiamine 100 mg dailyfolic acid 1 gm dailyMVI dailyacamp rosate 666 mg tidinterdi sciplinary support for sobrietywi ll monitor and support as needed Upper gastrointestinal bleeding 23526707 K92.89 with history varices, Daisy Zee tear:sucra lfate 1 gm bidomepraz ole 40 mg [id number] monitoravo id NSAIDs Alcoholic cirrhosis 4200 21445 K70.31 Xifaxan 550 mg bidspirono lactone 12.5 mg bidfurosem eliana 20 mg dailylactu lose 40gm tidwill monitor Esophageal varices 22487 008 I85.00 see meds for history UGI bleed:also carvedilol 6.25 mg bidwill monitor [id number] BRADY HOGAN NP [facility] on [address] [place] [address] 11/28/2023 09:53:56 12/01/2023 12:57:26 Alcohol abuse 43034850 F10.10 thiamine 100 mg dailyfolic acid 1 gm dailyMVI dailyacamp rosate 666 mg tidinterdi sciplinary support for sobrietywi ll monitor and support as needed Upper gastrointestinal bleeding 90909029 K92.89 with history varices, Daisy Zee tear:sucra lfate 1 gm bidomepraz ole 40 mg [id number] monitoravo id NSAIDs Alcoholic cirrhosis 4200 39341 K70.31 Xifaxan 550 mg bidspirono lactone 12.5 mg bidfurosem eliana 20 mg dailylactu lose 40gm tidwill monitor Esophageal varices 91084 008 I85.00 see meds for history UGI bleed:carv edilol 6.25 mg bidwill monitor Health Concerns Section Related Observation LastModified by Organization Detai ls LastModified Time None Recorded Concern Status LastModified by Organization Details LastModified Time None Recorded Advance Directives Directive Y: Payers Encounter Date Sequence Insurance Name Policy Number Policy Yip Covered Member ID Yip Member ID Guarantor Name 11/08/2023 1 [place] [facility] Charbel Delgado [id number] Charbel Delgado 11/14/2023 1 [place] [facility] Charbel Delgado [id number] Charbel Delgado 11/17/2023 1 [place] [id number] Charbel Delgado 11/24/2023 1 [place] [facility] [id number] Charbel Delgado 11/28/2023 1 [place] [facility] [id number] Charbel Delgado Notes Date Note Type Note [...] a few weeks. Molst: HALEY Cummings [address] [facility], [address], [place], [address], [facility] 11/08/2023 16:31:23 11/14/2023 text/html Patient is 53-ye ar-old male seen today for acute rounding visit. Today he is stable, he was sent to ED on 11/09 for hgb noted 7.0 and had repeat labs in ED hgb 8.1. He returned to [facility] the same evening and has been stable. [...] in a few weeks. HALEY WYATT [address] [facility], [address], [place], [address], [facility] 11/14/2023 21:53:05 11/17/2023 text/html Patient is [...] no acute nursing concerns. 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 Medical history is remarkable for history of alcohol use disorder with alcoholic cirrhosis, HFpEF, hypertension, ADHD, anxiety, depression Patient was sent out of facility to ER at [facility] on 10/30/23 with melena and coffee-ground emesis. [...] full code assumed Lis Oconnell MD [address] [facility], [address], [place], [address], [facility] 11/24/2023 12:23:26 11/28/2023 text/html seen today for a cute rounding visit, CAOx3 he is complaining about being bored, independent in room, gait steady, mood stable, staff report no concerns BRADY HOGAN NP [address] [facility], [address], [place], [address], [facility] 11/28/2023 10:23:34
[2024-12-09 07:04] VITALS: BP 132/68; PULSE 65; RESP 16; TEMP 36.8; O2SAT 97
== END 2024-12-09 07:23 | disposition home or self-care (01) ==
PROVIDERS: Emergency Provider Internal Medicine
DX: F10.10 Alcohol abuse, uncomplicated (principal); Y90.9 Presence of alcohol in blood, level not specified; Z87.891 Personal history of nicotine dependence; Z59.00 Homelessness unspecified; Z79.899 Other long term (current) drug therapy
CPT/HCPCS: 99284

== ENCOUNTER 2024-12-10 18:14 | Inpatient (IN) | payer MEDICAID, SELFPAY ==
[2024-12-10] VITALS (10 sets, daily range): BP systolic 84–160; BP diastolic 40–82; PULSE 76–88; RESP 17–20; TEMP 36.8–37.2; O2SAT 85–96; BMI 19.4
--- NOTE | ~2024-12-10 | XR_ITS ---
CLINICAL HISTORY: sob 1 view chest x-ray Comparison: CT/SR - CT CHEST W IV CON - 11/29/24 04:19 EST CR/SR - XR CHEST 1V - 11/06/24 13:09 EST Findings: Ill-defined opacities in both lung bases. Slightly more evident on the left. No pleural effusion or pneumothorax. Cardiomegaly. Pulmonary vasculature is congested. Osteopenia. No acute fracture. IMPRESSION: 1. Ill-defined bibasilar lung opacities could be atelectasis or consolidation. 2. Cardiomegaly with possible volume overload. This document has been electronically signed by: Sam Aguilar MD on 12/10/2024 22:58:20
[2024-12-10] MEDS: cefTRIAXone sodium 2 GM VIAL IVPUSH (22:45)
[2024-12-10] MEDS: 0.9 % Sodium Chloride 1,632.93 ML 1632.93 ML IV (22:45)
[2024-12-10 22:47] LABS: Basophils Percent Auto 0.8 % (0-2); Eosinophils Absolute Auto 0.1 X10*3/uL (0.0-0.4); Eosinophils Percent Auto 2.6 % (0-4); Hematocrit 24.9 % (42.0-52.0); Hemoglobin 8.3 g/dl (14.0-18.0); Imm Gran Abs Auto 0.02 X10*3/uL (0.00-0.03); Imm Gran Pct Auto 0.8 % (0.0-0.4); Lymphocytes Absolute Auto 1.1 X10*3/uL (1.2-4.9); Lymphocytes Percent Auto 41.7 % (20-40); MANUAL DIFF FLAG SCAN; Mean Corpuscular HGB Conc 33.3 g/dl (31.0-36.0); Mean Corpuscular Hemoglobin 32.5 pg (27.0-33.0); Mean Corpuscular Volume 97.6 fL (80.0-98.0); Mean Platelet Volume 11.6 fL (9.4-12.4); Monocytes Absolute Auto 0.3 X10*3/uL (0.1-1.2); Monocytes Percent Auto 11.7 % (2-11); Neutrophils Absolute Auto 1.1 x10*3/uL (2.0-8.3); Neutrophils Percent Auto 42.4 % (45-73); Red Blood Count 2.55 X10*6/uL (4.60-5.80); Red Cell Distribution Width 15.7 % (11.0-16.0); SCAN SMEAR FLAG 1; White Blood Count 2.7 X10*3/uL (4.8-10.8)
[2024-12-10 23:01] LABS: Ethanol 250 mg/dL
[2024-12-10 23:05] LABS: Alanine Aminotransferase 13 U/L (0-40); Albumin Level 2.9 g/dL (3.5-5.0); Alkaline Phosphatase 148 U/L (39-117); Anion Gap 12 (12-20); Aspartate Amino Transferase 51 U/L (5-37); Bilirubin Total 0.4 mg/dL (0.0-1.0); Blood Urea Nitrogen 8 mg/dL (9-16); Calcium 7.6 mg/dL (8.4-10.2); Carbon Dioxide 18 mmol/L (22-29); Chloride 112 mmol/L (96-108); Creatinine Clr Calc Pharmacy 94.4; Estimated Glomerular Filt Rate > 60; Glucose Random 87 mg/dL (60-115); Magnesium 1.7 mg/dL (1.6-2.6); Potassium 3.7 mmol/L (3.3-5.1); Sodium 138 mmol/L (135-145); Total Protein 7.2 g/dL (6.5-8.0)
[2024-12-10 23:24] LABS: Influenza A PCR POSITIVE (Negative); Influenza B PCR NEGATIVE (Negative); Resp Syncy Virus RNA Qual PCR NEGATIVE (Negative); SARS COV2 PCR INHOUSE NEGATIVE (Negative)
[2024-12-10 23:25] LABS: Platelet Count 65 X10*3/uL (160-400)
[2024-12-10 23:27] LABS: SLIDE REVIEW VERIFIED
--- NOTE | 2024-12-10 23:53 | PC.NURSE ---
This appeals writer assumed care of this Pt at 2300. Pt A&Ox3, fluids running per MAR. Pt given sandwich and PO fluids per request.
[2024-12-11] VITALS (13 sets, daily range): BP systolic 92–136; BP diastolic 43–67; PULSE 68–86; RESP 14–20; TEMP 36.8–37.8; O2SAT 90–100
--- NOTE | 2024-12-11 00:08 | ED.ALCOHOL ---
HPI - Alcohol General Chief Complaint: ETOH/Substance Use Stated Complaint: LOWER BACK PAIN Time Seen by Provider: 12/10/24 20:02 Source: EMS Limitations: no limitations History of Present Illness ED Provider: Trudy Brannon PA-C HPI narrative: 54-year-old male with a history of housing and security, alcohol abuse, varices, chronic pancytopenia, presents via EMS intoxicated. Patient states he complains of atraumatic low back pain and left knee pain. Patient admits to drinking today. Related Data Previous Rx's ?Medication ?Instructions ?Recorded folic acid 1 mg tablet 1 mg PO DAILY #90 tabs 11/15/24 furosemide 20 mg tablet 20 mg PO DAILY #90 tabs 11/15/24 magnesium oxide 400 mg (241.3 mg 400 mg PO BIDPC #180 tabs 11/15/24 magnesium) tablet midodrine 5 mg tablet 5 mg PO TID #180 tabs 11/15/24 omeprazole 20 mg capsule,delayed 20 mg PO BID@0630,1630 #60 caps 11/15/24 release thiamine mononitrate (vit B1) 100 100 mg PO DAILY #90 tabs 11/15/24 mg tablet fluconazole 100 mg tablet 100 mg PO DAILY #10 tabs 12/04/24 sucralfate 1 gram tablet 1 g PO BIDAC #60 tabs 12/04/24 Allergies Allergy/AdvReac Type Severity Reaction Status Date / Time No Known Allergies Allergy Verified 12/10/24 18:25 [No Known Allergies*] Review of Systems Review of Systems: Unable to obtain as the patient is intoxicated Yes all other systems are reviewed and are negative PMFSH Past Medical History Attestation statement: The following information was validated with the patient. Medical History (Updated 12/11/24 @ 00:55 by Missy Miranda PA-C) Alcohol abuse Thrombocytopenia Esophageal varices Alcohol use disorder Acute on chronic anemia Alcoholic liver disease Aspiration pneumonia Thrombocytopenia Malnutrition CHF (congestive heart failure) Anemia Hypomagnesemia Cirrhosis Thrombocytopenia Acute on chronic anemia CHF (congestive heart failure) Anemia Pneumonia Alcohol abuse Alcohol withdrawal syndrome Surgical History No history of previous surgery Social History Social History Household Members: Other Household Members Other:: pt homeless Housing: Homeless Housing Other:: homeless Do you presently have visiting nurse or other home services: No Unable to assess alcohol history related to: Refusing to respond Alcohol intake: current Alcohol intake frequency: 3 or more drinks per day Alcohol type: hard liquor Comment: 1 assist to bathroom Patient Tobacco Use Status: Former Tobacco user Tobacco use type: Cigarette Second Hand Smoke Exposure: No Advance Directives: Yes Advance Directives on File: Yes Advance Directives Date on File: 07/13/23 service: No Physical Exam ED Vital Signs: Vital Signs - 24 hr 12/10/24 18:22 12/10/24 22:19 12/10/24 22:20 Temperature 99 F 98.7 F Pulse Rate 81 83 Respiratory Rate 20 20 Blood Pressure 114/40 L 99/60 Pulse Oximetry 92 85 L 94 Oxygen Delivery Method Room Air Room Air Nasal Cannula Oxygen Flow Rate 2 12/10/24 22:37 12/10/24 22:43 12/10/24 22:52 Temperature Pulse Rate 79 78 77 Respiratory Rate 18 17 19 Blood Pressure 89/51 L 84/44 L 85/46 L Pulse Oximetry 93 93 93 Oxygen Delivery Method Nasal Cannula Nasal Cannula Nasal Cannula Oxygen Flow Rate 2 2 2 12/10/24 23:08 12/10/24 23:22 12/10/24 23:37 Temperature 98.3 F Pulse Rate 76 76 82 Respiratory Rate 18 17 19 Blood Pressure 85/47 L 91/51 L 94/55 L Pulse Oximetry 96 95 95 Oxygen Delivery Method Nasal Cannula Nasal Cannula Nasal Cannula Oxygen Flow Rate 2 2 2 12/11/24 00:39 Temperature Pulse Rate 81 Respiratory Rate 20 Blood Pressure 103/56 L Pulse Oximetry 96 Oxygen Delivery Method Nasal Cannula Oxygen Flow Rate 2 BMI result Body Mass Index 19.4 Const Other: Alert, no sign of head trauma on exam Orientation/consciousness: patient oriented x3 HENMT Other: Alcohol halitosis, oropharynx is erythematous without exudate Resp Other: Rhonchorous posterior sánchez, no wheeze Cardio Other: Normal peripheral perfusion Skin Other: Warm dry no rash Neuro Other: Antalgic gait General: patient oriented x3, no focal motor deficits and CN's II-XI intact bilaterally Extrem Other: Full flexion and extension of left knee no evidence of trauma Psych Other: Cooperative, subtly hostile at times Course Reevaluation(s) Reevaluation #1: Concern for sepsis, patient is hypoxic he is coughing, he has had a recent admission for pneumonia, we will be ordering screening labs, viral panel, blood culture, lactic acid, giving fluid and antibiotics. Time: 22:44 Reevaluation #2: Systolic blood pressure improved to 103 Time: 01:21 Medical Decision Making Medical Decision Making MDM Narrative: 54-year-old male with a history of housing and security, alcohol abuse, varices, chronic pancytopenia, presents via EMS intoxicated. Patient states he complains of atraumatic low back pain and left knee pain. Patient admits to drinking today. Problem: Housing and security, alcohol abuse, History: Per patient I have considered the following differential diagnoses: Alcohol intoxication, sepsis, pneumonia, viral syndrome Plan: Patient was brought in via EMS likely due to secondary gain as he is homeless, with both atraumatic back and knee pain with an unremarkable exam. Shortly thereafter while obtaining vitals, the patient was found to be hypoxic to 85% on room air. Patient was recently admitted and discharged for pneumonia and anemia, there was concern for persistent pneumonia and/or new viral syndrome. Patient is now on 2 L nasal cannula. Concern for sepsis as he is hypotensive as well, We will be obtaining screening labs, viral panel, chest x-ray, blood cultures, lactic acid. Giving weight based IV fluid, starting ceftriaxone while the remainder of his studies Are pending. I have independently reviewed the following tests: Labs: Pancytopenia that is stable, no electrolyte abnormality, lactic 2.0, positive for influenza A, ethanol 250 Chest x-ray: Findings: Ill-defined opacities in both lung bases. Slightly more evident on the left. No pleural effusion or pneumothorax. Cardiomegaly. Pulmonary vasculature is congested. Osteopenia. No acute fracture. IMPRESSION: 1. Ill-defined bibasilar lung opacities could be atelectasis or consolidation. 2. Cardiomegaly with possible volume overload. This document has been electronically signed by: Sam Aguilar, clinically I would say the patient has a viral pneumonia with underlying bacterial pneumonia that may not be resolved from his recent admission. Adding doxycycline and we will be admitted MD on 12/10/2024 22:58:20 Lab Data 12/10/24 22:40 12/10/24 22:40 Labs: Lab Results 12/10/24 12/10/24 Range/Units 22:40 22:44 WBC 2.7 L (4.8-10.8) X10*3/uL RBC 2.55 L (4.60-5.80) X10*6/uL Hgb 8.3 L (14.0-18.0) g/dl Hct 24.9 L (42.0-52.0) % MCV 97.6 (80.0-98.0) fL MCH 32.5 (27.0-33.0) pg MCHC 33.3 (31.0-36.0) g/dl RDW 15.7 (11.0-16.0) % Plt Count 65 L (160-400) X10*3/uL MPV 11.6 (9.4-12.4) fL Immature Gran % (Auto) 0.8 H (0.0-0.4) % Neut % (Auto) 42.4 L (45-73) % Lymph % (Auto) 41.7 H (20-40) % [place] % (Auto) 11.7 H (2-11) % Eos % (Auto) 2.6 (0-4) % Baso % (Auto) 0.8 (0-2) % Lymph # (Auto) 1.1 L (1.2-4.9) X10*3/uL [place] # (Auto) 0.3 (0.1-1.2) X10*3/uL Eos # (Auto) 0.1 (0.0-0.4) X10*3/uL Baso # (Auto) 0.0 (0.0-0.2) X10*3/uL Abs Immat Gran (auto) 0.02 (0.00-0.03) X10*3/uL Absolute Neuts (auto) 1.1 L (2.0-8.3) x10*3/uL Absolute Nucleated RBC 0.000 (0.0-0.012) X10*3/uL Nucleated RBC % (auto) 0.0 (0.0-0.2) /100WBC Smear Tech's Comments VERIFIED Sodium 138 (135-145) mmol/L Potassium 3.7 (3.3-5.1) mmol/L Chloride 112 H (96-108) mmol/L Carbon Dioxide 18 L (22-29) mmol/L Anion Gap 12 (12-20) BUN 8 L (9-16) mg/dL Creatinine 0.68 (0.5-1.4) mg/dL Estim Creat Clear Calc 94.4 Estimated GFR > 60 Random Glucose 87 (60-115) mg/dL Lactic Acid 2.0 (0.5-2.0) mmol/L Calcium 7.6 L (8.4-10.2) mg/dL Magnesium 1.7 (1.6-2.6) mg/dL Total Bilirubin 0.4 (0.0-1.0) mg/dL AST 51 H (5-37) U/L ALT 13 (0-40) U/L Alkaline Phosphatase 148 H (39-117) U/L Ammonia 67 H (13-55) umol/L B-Natriuretic Peptide 78 (<100) pg/mL Total Protein 7.2 (6.5-8.0) g/dL Albumin 2.9 L (3.5-5.0) g/dL Ethyl Alcohol 250 mg/dL Influenza Type A (PCR) POSITIVE A (Negative) Influenza Type B (PCR) NEGATIVE (Negative) RSV RNA Qual (PCR) NEGATIVE (Negative) SARS-CoV-2 RNA (RT-PCR) NEGATIVE (Negative) Medications Administered Discontinued Medications Generic Name Dose Route Start Last Admin Trade Name Freq PRN Reason Stop Dose Admin Ceftriaxone Sodium 2 gm 12/10/24 22:24 12/10/24 22:45 Ceftriaxone Sodium 2 Gm Vial IVPUSH 12/10/24 22:25 2 gm ONCE ONE Administration Sodium Chloride 1,632.93 mls @ 1,632.93 mls/hr 12/10/24 22:24 12/11/24 00:31 Ns 30 ml/kg infuse over 1 hr (1632.93 ml) 12/10/24 23:23 Infused IV Infusion .Q1H STA Discharge Plan Discharge Clinical Impression: Hypoxia, Alcoholic intoxication, Pneumonia, Influenza A Patient Disposition: Admitted As Inpatient
[2024-12-11 00:13] LABS: Ammonia 67 umol/L (13-55)
--- NOTE | 2024-12-11 00:48 | P.HPHOSP_ITS ---
History of Present Illness Date of Service: 12/11/24 Attending physician on admission: Rolan Baker Chief Complaint: back pain, knee pain Pt is a 54 yo male with a pmhx significant for alcohol use disorder with alcoholic cirrhosis, GERD, with recent admission due to sepsis with aspiration pneumonia discharged on 12/03/24, presented back to the ED today initially due to back pain and knee pain. The patient reports that he is actually unsure why he is here or how he got here. He does report a dry cough, sore throat and fatigue. He was found to be hypoxic in the ED at 85% on room air, improved with 2 L via nasal cannula. He denies any headache, fever, chills, nausea, vomiting, abdominal pain or lower extremity edema. He has not had any hematemesis, melena or hematochezia. He reports his last drink was about 24 hours ago but he does not have any alcohol withdrawal symptoms including anxiety, tremor, visual or auditory hallucinations, headache, diaphoresis. Review of Systems 2 Constitutional: Constitutional: Denies body ache(s), Denies chills, Reports fatigue, Denies fever(s) and Denies headache(s) Eyes: Eyes: Denies change in vision and Denies photophobia ENT: Denies headache(s), Denies nasal congestion, Denies nasal discharge, Denies neck pain and Reports sore throat Cardiovascular: Cardiovascular: Denies chest pain, Denies rapid heart rate, Denies leg edema, Denies lightheadedness and Denies dyspnea Respiratory: Respiratory: Reports cough (dry), Denies hemoptysis, Denies dyspnea and Denies wheezing Gastrointestinal: Gastrointestinal: Denies melena, Denies hematochezia, Denies coffee ground emesis, Denies diarrhea, Denies nausea and Denies vomiting Genitourinary: Genitourinary: Denies dysuria and Denies urinary frequency Musculoskeletal: Musculoskeletal: Reports back pain, Denies myalgias and Denies neck pain Integumentary/Breasts: Skin/Breast: Denies rash Neurologic: Denies headache(s) and Reports memory loss Psychiatric: Psychiatric: Reports memory loss Endocrine: Endocrine: Reports fatigue Hematologic/Lymphatic: Hematologic/Lymphatic: Denies easy bleeding and Denies easy bruising Allergic/Immunologic: Allergic/Immunologic: Denies wheezing FORMERLY [facility], 1928–1983 Medical History (Updated 12/11/24 @ 00:55 by Missy Miranda PA-C) Alcohol abuse Thrombocytopenia Esophageal varices Alcohol use disorder Acute on chronic anemia Alcoholic liver disease Aspiration pneumonia Thrombocytopenia Malnutrition CHF (congestive heart failure) Anemia Hypomagnesemia Cirrhosis Thrombocytopenia Acute on chronic anemia CHF (congestive heart failure) Anemia Pneumonia Alcohol abuse Alcohol withdrawal syndrome Functional capacity: independent ambulation Surgical History No history of previous surgery Social History Household Members: Other Household Members Other:: pt homeless Housing: Homeless Housing Other:: homeless Do you presently have visiting nurse or other home services: No Unable to assess alcohol history related to: Refusing to respond Alcohol intake: current Alcohol intake frequency: 3 or more drinks per day Alcohol type: hard liquor Comment: 1 assist to bathroom Patient Tobacco Use Status: Former Tobacco user Tobacco use type: Cigarette Second Hand Smoke Exposure: No Advance Directives: Yes Advance Directives on File: Yes Advance Directives Date on File: 07/13/23 service: No Narrative: no smoking or drug use. drinks daily 6+ beers and hard liqour Meds Allergies Allergy/AdvReac Type Severity Reaction Status Date / Time No Known Allergies Allergy Verified 12/10/24 18:25 [No Known Allergies*] Physical Exam 2 Vital Signs and Narrative: Vital Signs: Last Vital Signs Temp 98.3 F 12/10/24 23:37 Pulse 81 12/11/24 00:39 Resp 20 12/11/24 00:39 BP 103/56 L 12/11/24 00:39 Pulse Ox 96 12/11/24 00:39 O2 Del Method Nasal Cannula 12/11/24 00:39 O2 Flow Rate 2 12/11/24 00:39 BMI result Body Mass Index 19.4 General: AOx3, no acute distress, poor hygiene Resp: crackles bilteral lung bases, no wheezing, rhonchi bilateral upper lung sánchez CVS: S1, S2, RRR GI: +BS, NT, no distention Skin: Warm, dry Neuro: Cranial nerves II-XII grossly intact bilaterally. Motor grossly intact bilaterally Extremities: No LE edema Psych: Appropriate affect Eyes: Direct Ophthalmoscopy: No photophobia Results Labs 12/10/24 22:40 12/10/24 22:40 Labs: Laboratory Results - last 24 hr 12/10/24 12/10/24 22:40 22:44 MCV 97.6 MCH 32.5 MCHC 33.3 RDW 15.7 Plt Count 65 L MPV 11.6 Immature Gran % (Auto) 0.8 H Neut % (Auto) 42.4 L Lymph % (Auto) 41.7 H Guthrie % (Auto) 11.7 H Eos % (Auto) 2.6 Baso % (Auto) 0.8 Lymph # (Auto) 1.1 L G[place] # (Auto) 0.3 Eos # (Auto) 0.1 Baso # (Auto) 0.0 Abs Immat Gran (auto) 0.02 Absolute Neuts (auto) 1.1 L Absolute Nucleated RBC 0.000 Nucleated RBC % (auto) 0.0 Smear Tech's Comments VERIFIED Anion Gap 12 Estim Creat Clear Calc 94.4 Estimated GFR > 60 Random Glucose 87 Lactic Acid 2.0 Calcium 7.6 L Magnesium 1.7 Total Bilirubin 0.4 AST 51 H ALT 13 Alkaline Phosphatase 148 H Ammonia 67 H Total Protein 7.2 Albumin 2.9 L Ethyl Alcohol 250 Influenza Type A (PCR) POSITIVE A Influenza Type B (PCR) NEGATIVE RSV RNA Qual (PCR) NEGATIVE SARS-CoV-2 RNA (RT-PCR) NEGATIVE Assessment and Plan (1) Sepsis: Status: Acute (2) Hypoxia: Status: Acute (3) Pneumonia: Status: Acute (4) Influenza A: Status: Acute (5) Alcoholic intoxication: Status: Acute (6) Pancytopenia: Status: Acute (7) Alcohol abuse: Status: Acute Plan Pt is a 54 yo male with a pmhx significant for alcohol use disorder with alcoholic cirrhosis, GERD, with recent admission due to sepsis with aspiration pneumonia discharged on 12/03/24, presented back to the ED today initially due to back pain and knee pain. The patient reports that he is actually unsure why he is here or how he got here. He does report a dry cough, sore throat and fatigue. Patient has frequent ED visits due to alcohol intoxication and homelessness. He was found to be hypoxic on room air at 85% positive for flu a and recurrence of pneumonia. Sepsis and acute hypoxic respiratory failure secondary to pneumonia and influenza A - WBC 2.7, lactic 2.0, hypotensive, blood cultures x2 pending, not severe sepsis - chest x-ray with ill-defined bibasilar lung opacities, could be atelectasis or consolidation, and cardiomegaly with possible volume overload - hypoxic with improvement on 2 L via nasal cannula - flu A positive - BNP normal - started on ceftriaxone in ED, add doxycycline - given IV fluid bolus in ED - monitor CBC and BMP Alcohol intoxication/alcohol abuse - alcohol level 250, patient reports last drink was over 24 hours ago - CIWA currently 0 - monitor CIWA scores - phenobarb protocol - addiction med consult - thiamine, folic acid, multivitamin - ammonia okay, repeat if increased confusion cirrhosis, anemia - recent GI bleed on admission earlier this month. No obvious signs of bleeding at this time. - EGD 11/30/24 showed esophageal varices (banded), portal hypertensive gastropathy, alcoholic gastritis and esophageal candidiasis. It was recommended patient take Carafate 1 g b.i.d., Prilosec 40 mg q.d. and fluconazole 100 mg q.d. x3 weeks and repeat EGD in 4 weeks. - hemoglobin 8.3, hematocrit 24.9, no need for transfusion at this time, monitor closely - pantoprazole 40mg BID - GI consult Pancytopenia, chronic -- due to splenomegaly in the setting of cirrhosis and alcoholism - HIV negative recently - monitor CBC Full code VTE prophylaxis: Pneumoboots Patient with sepsis and acute hypoxic respiratory failure secondary to pneumonia and influenza A, requiring admission for at least 2 midnights stay for IV antibiotics and monitoring. Quality Stroke Does the patient have a stroke diagnosis?: No VTE Prior VTE?: No VTE Risk Level:: Medical - moderate - high VTE Device Contraindication: N/A - Device Ordered VTE Drug Contraindication: Treatment Not Indicated
[2024-12-11 01:18] LABS: B Type Natriuretic Peptide 78 pg/mL (<100)
[2024-12-11] MEDS: PHENobarbitaL sodium 130 MG/ML IM ONCE 175 MG IM (03:10)
[2024-12-11 05:02] LABS: Eosinophils Absolute Auto 0.1 X10*3/uL (0.0-0.4); Eosinophils Percent Auto 3.1 % (0-4); Hematocrit 24.3 % (42.0-52.0); Hemoglobin 7.9 g/dl (14.0-18.0); Lymphocytes Absolute Auto 0.8 X10*3/uL (1.2-4.9); Lymphocytes Percent Auto 41.9 % (20-40); MANUAL DIFF FLAG SCAN; Mean Corpuscular HGB Conc 32.5 g/dl (31.0-36.0); Mean Corpuscular Hemoglobin 31.6 pg (27.0-33.0); Mean Corpuscular Volume 97.2 fL (80.0-98.0); Mean Platelet Volume 11.4 fL (9.4-12.4); Monocytes Absolute Auto 0.2 X10*3/uL (0.1-1.2); Neutrophils Absolute Auto 0.8 x10*3/uL (2.0-8.3); Red Cell Distribution Width 15.8 % (11.0-16.0); SCAN SMEAR FLAG 1
[2024-12-11 05:03] LABS: Platelet Count 56 X10*3/uL (160-400); White Blood Count 1.9 X10*3/uL (4.8-10.8)
[2024-12-11 05:24] LABS: Anion Gap 10 (12-20); Blood Urea Nitrogen 6 mg/dL (9-16); Calcium 7.6 mg/dL (8.4-10.2); Carbon Dioxide 16 mmol/L (22-29); Chloride 117 mmol/L (96-108); Estimated Glomerular Filt Rate > 60; Glucose Random 90 mg/dL (60-115); Magnesium 1.4 mg/dL (1.6-2.6); Potassium 3.7 mmol/L (3.3-5.1); Sodium 139 mmol/L (135-145)
[2024-12-11] MEDS: Doxycycline Hyclate 100 MG in 0.9 % Sodium Chloride 250 ML 166.67 MG IV ×2 (05:33→16:47)
[2024-12-11] MEDS: Pantoprazole Sodium 40 MG/10 ML VIAL IVPUSH ×2 (05:34→16:47)
[2024-12-11] MEDS: PHENobarbitaL sodium 130 MG/ML VIAL IM Q3Hx2 IM ×2 (06:05→08:12)
[2024-12-11] MEDS: 0.9 % Sodium Chloride Flush 3 ML SYRINGE IVFLUSH ×2 (07:23→21:19)
[2024-12-11] MEDS: Magnesium Sulfate/H2O 2 GM/50 ML PIGGYBACK IV (07:23)
[2024-12-11 07:51] LABS: Amphetamine Screen Urine Not Detected (Not Detect); Barbiturates, Urine POSITIVE (Not Detect); Benzodiazepines Screen Urine Not Detected (Not Detect); Buprenorphine Scr Not Detected (Not Detect); Cannabinoid Screen Urine Not Detected (Not Detect); Cocaine Screen Urine Not Detected (Not Detect); Fentanyl, urine Not Detected (Not Detect); Methadone Screen, Urine Not Detected (Not Detect); Opiate Screen Urine Not Detected (Not Detect); Oxycodone Screen Urine Not Detected (Not Detect); Phencyclidine Screen Urine Not Detected (Not Detect)
--- NOTE | 2024-12-11 08:11 | PHA.MEDREC ---
Addendum entered by Fabiola Marroquin RPh 12/11/24 08:22: reviewed by [facility]. Original Note: Pharmacy Consult ? Medication Reconciliation Pharmacy has completed the medication reconciliation. Spoke with patient and he states he is not taking anything at this time and has not taken anything in a while, a few months at least but stated he was taking a pill for his mood but did not know the name of it right now. I asked where he was filling before and he said [facility]. I called and spoke with [facility] and they state they have no previous fills for any psych/mood medications and the last time the patient filled anything with them was 05/12/2024.
[2024-12-11] MEDS: Lactated Ringers 1,000 ML 125 ML IVCONT ×3 (08:12→21:18)
[2024-12-11] MEDS: Thiamine HCL 100 MG TABLET PO (08:13)
[2024-12-11] MEDS: Folic Acid 1 MG TABLET PO (08:13)
[2024-12-11] MEDS: Multivitamin TABLET 1 TAB PO (08:13)
--- NOTE | 2024-12-11 09:27 | MHC.CM.PN ---
Addendum entered by Jeimy Loo 12/11/24 09:30: Pt has HCP on file, his brother, Guillermo. Original Note: Pt is homeless, has had several recent admissions here. He left on 12/03/24 to [facility]. STR was rec. in early Nov admission, pt. declined to go and returned to the street. He does not have a PCP. DCP: TBD, CM to follow for DC needs.
--- NOTE | 2024-12-11 13:48 | PM.EVENT ---
Event Note Date of Service: 12/11/24 Event Note: admitted this morning Patient seen and examined, labs, meds and imaging reviewed. He is awak, alert, uncooperative, vitals were ok 54 yo male with a pmhx significant for alcohol use disorder with alcoholic cirrhosis, GERD, with recent admission due to sepsis with aspiration pneumonia discharged on 12/03/24, presented back to the ED today initially due to back pain and knee pain. The patient reports that he is actually unsure why he is here or how he got here. He does report a dry cough, sore throat and fatigue. Patient has frequent ED visits due to alcohol intoxication and homelessness. He was found to be hypoxic on room air at 85% positive for flu a and recurrence of pneumonia. Sepsis and acute hypoxic respiratory failure secondary to pneumonia and influenza A - WBC 2.7, lactic 2.0, hypotensive, blood cultures x2 pending, not severe sepsis - chest x-ray with ill-defined bibasilar lung opacities, could be atelectasis or consolidation, and cardiomegaly with possible volume overload - hypoxic with improvement on 2 L via nasal cannula - flu A positive - BNP normal - started on ceftriaxone in ED, add doxycycline - given IV fluid bolus in ED - monitor CBC and BMP -continue empric Ceftriaxone and Doxycycline Alcohol intoxication/alcohol abuse - alcohol level 250, patient reports last drink was over 24 hours ago - CIWA currently 0 - monitor CIWA scores - phenobarb protocol - addiction med consult - thiamine, folic acid, multivitamin - ammonia okay, repeat if increased confusion cirrhosis, anemia - recent GI bleed on admission earlier this month. No obvious signs of bleeding at this time. - EGD 11/30/24 showed esophageal varices (banded), portal hypertensive gastropathy, alcoholic gastritis and esophageal candidiasis. It was recommended patient take Carafate 1 g b.i.d., Prilosec 40 mg q.d. and fluconazole 100 mg q.d. x3 weeks and repeat EGD in 4 weeks. - hemoglobin 8.3, hematocrit 24.9, no need for transfusion at this time, monitor closely - pantoprazole 40mg BID - GI consult Pancytopenia, chronic -- due to splenomegaly in the setting of cirrhosis and alcoholism - HIV negative recently - monitor CBC Hypomagnesemia--replaced, repeat and give additional if needed Hyperchloremic metabolic acidosis, no gap, alcoholic ketosis, starvation and other -avoid NS, give LR and repeat, no bicab replacement at this time. Full code VTE prophylaxis: Pneumoboots, given signficant thrombocytopenia Time Spent With Patient Time: Total time managing care of this patient today ____ minutes.
[2024-12-11 14:47] LABS: Anion Gap 9 (12-20); Blood Urea Nitrogen 6 mg/dL (9-16); Calcium 7.9 mg/dL (8.4-10.2); Carbon Dioxide 20 mmol/L (22-29); Chloride 115 mmol/L (96-108); Creatinine Clr Calc Pharmacy 112.7; Estimated Glomerular Filt Rate > 60; Glucose Random 81 mg/dL (60-115); Magnesium 1.9 mg/dL (1.6-2.6); Potassium 4.1 mmol/L (3.3-5.1); Sodium 140 mmol/L (135-145)
[2024-12-11] MEDS: PHENobarbitaL 15 MG TABLET 45 MG PO (16:47)
[2024-12-11] MEDS: cefTRIAXone sodium 1 GM VIAL IVPUSH (21:18)
[2024-12-12 03:04] VITALS: BP 105/52; PULSE 70; RESP 18; TEMP 37.2; O2SAT 94
[2024-12-12] MEDS: PHENobarbitaL 15 MG TABLET 45 MG PO ×2 (05:53→17:45)
[2024-12-12] MEDS: Pantoprazole Sodium 40 MG/10 ML VIAL IVPUSH ×2 (05:53→17:47)
[2024-12-12] MEDS: Doxycycline Hyclate 100 MG in 0.9 % Sodium Chloride 250 ML 166.67 MG IV ×2 (05:54→17:50)
[2024-12-12] MEDS: Lactated Ringers 1,000 ML 125 ML IVCONT (06:02)
[2024-12-12 07:44] LABS: Anion Gap 10 (12-20); Blood Urea Nitrogen 8 mg/dL (9-16); Calcium 7.9 mg/dL (8.4-10.2); Carbon Dioxide 19 mmol/L (22-29); Chloride 111 mmol/L (96-108); Creatinine Clr Calc Pharmacy 95.9; Estimated Glomerular Filt Rate > 60; Glucose Random 115 mg/dL (60-115); Potassium 3.9 mmol/L (3.3-5.1); Sodium 136 mmol/L (135-145)
[2024-12-12 08:00] VITALS: BP 121/57; PULSE 66; RESP 20; TEMP 36.6; O2SAT 94
[2024-12-12 08:25] LABS: Basophils Percent Auto 0.5 % (0-2); Eosinophils Absolute Auto 0.1 X10*3/uL (0.0-0.4); Eosinophils Percent Auto 2.3 % (0-4); Hematocrit 26.4 % (42.0-52.0); Hemoglobin 8.7 g/dl (14.0-18.0); Lymphocytes Absolute Auto 0.9 X10*3/uL (1.2-4.9); Lymphocytes Percent Auto 42.9 % (20-40); MANUAL DIFF FLAG SCAN; Mean Corpuscular Hemoglobin 32.3 pg (27.0-33.0); Mean Corpuscular Volume 98.1 fL (80.0-98.0); Mean Platelet Volume 12.1 fL (9.4-12.4); Monocytes Absolute Auto 0.2 X10*3/uL (0.1-1.2); Monocytes Percent Auto 9.1 % (2-11); Neutrophils Percent Auto 45.2 % (45-73); Red Blood Count 2.69 X10*6/uL (4.60-5.80); Red Cell Distribution Width 15.5 % (11.0-16.0); SCAN SMEAR FLAG 1
[2024-12-12 08:29] LABS: Platelet Count 61 X10*3/uL (160-400); White Blood Count 2.2 X10*3/uL (4.8-10.8)
[2024-12-12 08:33] LABS: Magnesium 1.5 mg/dL (1.6-2.6)
[2024-12-12 08:54] LABS: SLIDE REVIEW VERIFIED
[2024-12-12] MEDS: Folic Acid 1 MG TABLET PO (09:01)
[2024-12-12] MEDS: Multivitamin TABLET 1 TAB PO (09:02)
[2024-12-12] MEDS: Thiamine HCL 100 MG TABLET PO (09:02)
--- NOTE | 2024-12-12 09:48 | HO.PM.IMPN ---
Subjective Subjective Date of Service: 12/12/24 Interval History: No sings of withdrawal Physical Exam Vital Signs: Vital Signs: Last Vital Signs Temp 97.8 F 12/12/24 08:00 Pulse 66 12/12/24 08:00 Resp 20 12/12/24 08:00 BP 121/57 L 12/12/24 08:00 Pulse Ox 94 12/12/24 08:00 O2 Del Method Nasal Cannula 12/12/24 08:00 O2 Flow Rate 2 12/12/24 08:00 BMI result Body Mass Index 19.4 Const: Other: General: , no acute distress, alert Resp: CTA bilateral CVS: S1,S2,RRR GI: +BS, NT, no distention Skin: No rash Neuro: motor grossly intact Psych: appropriate affect Objective Data Active Medications Acetaminophen (Acetaminophen 325 Mg Tablet) 975 mg PO Q6H PRN PRN Reason: Pain, Mild 1-3,fever,headache Calcium Carbonate (Calcium Carbonate 750 Mg Tab.Chew) 750 mg PO Q4H PRN PRN Reason: Heartburn Ceftriaxone Sodium (Ceftriaxone Sodium 1 Gm Vial) 1 gm IVPUSH Q24H [facility] Last Admin: 12/11/24 21:18 Dose: 1 gm Documented By: KEREN Folic Acid (Folic Acid 1 Mg Tablet) 1 mg PO DAILY [facility] Stop: 12/14/24 08:59 Last Admin: 12/12/24 09:01 Dose: 1 mg Documented By: VADIM Doxycycline Hyclate 100 mg/ (Sodium Chloride) 250 mls @ 166.67 mls/hr IV Q12H [facility] Last Infusion: 12/12/24 07:25 Dose: Infused Documented By: VADIM Lactated Ringer's (Lr) 1,000 mls @ 125 mls/hr IVCONT .Q8H [facility] Last Admin: 12/12/24 06:02 Dose: 125 mls/hr Documented By: KEREN Magnesium Hydroxide (Milk Of Magnesia 30 Ml Oral.Susp) 30 ml PO DAILY PRN PRN Reason: Constipation Melatonin (Melatonin 3 Mg Tablet) 6 mg PO BEDTIME PRN PRN Reason: Insomnia Multivitamins/Vitamin C (Multivitamin Tablet) 1 tab PO DAILY [facility] Stop: 12/14/24 08:59 Last Admin: 12/12/24 09:02 Dose: 1 tab Documented By: VADIM Ondansetron HCl (Ondansetron Hcl 4 Mg/2 Ml Vial) 4 mg IVPUSH Q8H PRN PRN Reason: Nausea and Vomiting Pantoprazole Sodium (Pantoprazole Sodium 40 Mg/10 Ml Vial) 40 mg IVPUSH BID@0630,1830 [facility] Last Admin: 12/12/24 05:53 Dose: 40 mg Documented By: KEREN Pharmacy Consult (Consult Rx Etoh Phenob Im/Po) 1 each MISCELLANE ONCE PRN; Protocol PRN Reason: Consult order Phenobarbital (Phenobarbital 15 Mg Tablet) 45 mg PO BID@0600,1800 [facility] Stop: 12/13/24 06:01 Last Admin: 12/12/24 05:53 Dose: 45 mg Documented By: KEREN Phenobarbital (Phenobarbital 15 Mg Tablet) 15 mg PO BID@0600,1800 [facility] Stop: 12/15/24 06:01 Phenobarbital (Phenobarbital 15 Mg Tablet) 15 mg PO DAILY@0600 [facility] Stop: 12/17/24 06:01 Sodium Chloride (0.9 % Sodium Chloride Flush 3 Ml Syringe) 3 ml IVFLUSH QSHIFT [facility] Last Admin: 12/12/24 09:02 Dose: Not Given Documented By: VADIM Non-Admin Reason: IV Running Thiamine HCl (Thiamine Hcl 100 Mg Tablet) 100 mg PO DAILY [facility] Stop: 12/14/24 08:59 Last Admin: 12/12/24 09:02 Dose: 100 mg Documented By: VADIM Labs 12/12/24 07:00 12/12/24 07:00 Labs: Laboratory Results - last 24 hr 12/11/24 12/12/24 14:23 07:00 MCV 98.1 H MCH 32.3 MCHC 33.0 RDW 15.5 Plt Count 61 L MPV 12.1 Immature Gran % (Auto) 0.0 Neut % (Auto) 45.2 Lymph % (Auto) 42.9 H [place] % (Auto) 9.1 Eos % (Auto) 2.3 Baso % (Auto) 0.5 Lymph # (Auto) 0.9 L [place] # (Auto) 0.2 Eos # (Auto) 0.1 Baso # (Auto) 0.0 Abs Immat Gran (auto) 0.00 Absolute Neuts (auto) 1.0 L Absolute Nucleated RBC 0.000 Nucleated RBC % (auto) 0.0 Smear Tech's Comments VERIFIED Hold Purple Top SEE NOTE Anion Gap 9 L 10 L Estim Creat Clear Calc 112.7 95.9 Estimated GFR > 60 > 60 Random Glucose 81 115 Calcium 7.9 L 7.9 L Magnesium 1.9 1.5 L Microbiology Microbiology Results: Microbiology 12/10/24 22:44 Blood Culture - Preliminary Blood - Venous No growth after 24 hours. 12/10/24 22:40 Blood Culture - Preliminary Blood - Venous No growth after 24 hours. Assessment and Plan (1) Aspiration pneumonia: Status: Resolved Plan 54 yo male with a pmhx significant for alcohol use disorder with alcoholic cirrhosis, GERD, with recent admission due to sepsis with aspiration pneumonia discharged on 12/03/24, presented back to the ED today initially due to back pain and knee pain. The patient reports that he is actually unsure why he is here or how he got here. He does report a dry cough, sore throat and fatigue. Patient has frequent ED visits due to alcohol intoxication and homelessness. He was found to be hypoxic on room air at 85% positive for flu a and recurrence of pneumonia. Sepsis and acute hypoxic respiratory failure secondary to pneumonia and influenza A - Hypotension resolved. Blood cultures pending - chest x-ray with ill-defined bibasilar lung opacities, could be atelectasis or consolidation, and cardiomegaly with possible volume overload - hypoxic with improvement on 2 L via nasal cannula - flu A positive -continue Ceftriaxone and Doxy -Tamiflu for influenza Alcohol intoxication/alcohol abuse -ccontinue phenobarbital protocol, folic acid, thiamine. -Addiction med consult cirrhosis, anemia - recent GI bleed on admission earlier this month. No obvious signs of bleeding at this time. - EGD 11/30/24 showed esophageal varices (banded), portal hypertensive gastropathy, alcoholic gastritis and esophageal candidiasis. It was recommended patient take Carafate 1 g b.i.d., Prilosec 40 mg q.d. and fluconazole 100 mg q.d. x3 weeks and repeat EGD in 4 weeks. - hemoglobin 8.3, hematocrit 24.9, no need for transfusion at this time, monitor closely - pantoprazole 40mg BID, hold gi consult at this time Pancytopenia, chronic -- due to splenomegaly in the setting of cirrhosis and alcoholism - HIV negative recently - monitor CBC Hypomagnesemia--replaced, repeat and give additional if needed Hyperchloremic metabolic acidosis, no gap, alcoholic ketosis, starvation and mostly chronic -avoid NS, give LR and repeat, no bicab replacement at this time. Full code VTE prophylaxis: Pneumoboots, given signficant thrombocytopen given recurent hospitilization, chronic alcoholism, non-compliance... A section 13 should be entertained Quality Stroke Does the patient have a stroke diagnosis?: No VTE Prior VTE?: No VTE Risk Level:: Medical - moderate - high VTE Device Contraindication: N/A - Device Ordered VTE Drug Contraindication: Treatment Not Indicated
[2024-12-12] MEDS: Magnesium Sulfate/H2O 2 GM/50 ML PIGGYBACK IV (10:20)
[2024-12-12] MEDS: Oseltamivir Phosphate 75 MG CAPSULE PO ×2 (10:23→20:47)
[2024-12-12 11:40] VITALS: BP 112/52; PULSE 74; RESP 20; TEMP 36.8; O2SAT 99
[2024-12-12 16:00] VITALS: BP 101/55; PULSE 77; RESP 20; TEMP 36.8; O2SAT 95
[2024-12-12 19:44] VITALS: BP 99/52; PULSE 82; RESP 18; TEMP 36.9; O2SAT 95
[2024-12-12] MEDS: cefTRIAXone sodium 1 GM VIAL IVPUSH (20:47)
[2024-12-12 23:17] VITALS: BP 109/57; PULSE 85; RESP 18; TEMP 37; O2SAT 95
[2024-12-13] MEDS: Lactated Ringers 1,000 ML 125 ML IVCONT (03:20)
[2024-12-13 03:48] VITALS: BP 112/53; PULSE 79; RESP 18; TEMP 37; O2SAT 96
[2024-12-13] MEDS: PHENobarbitaL 15 MG TABLET 45 MG PO (05:05)
[2024-12-13] MEDS: Doxycycline Hyclate 100 MG in 0.9 % Sodium Chloride 250 ML 166.67 MG IV (05:05)
[2024-12-13] MEDS: Pantoprazole Sodium 40 MG/10 ML VIAL IVPUSH ×2 (05:05→17:17)
[2024-12-13 07:15] LABS: Anion Gap 9 (12-20); Blood Urea Nitrogen 8 mg/dL (9-16); Calcium 8.3 mg/dL (8.4-10.2); Carbon Dioxide 21 mmol/L (22-29); Chloride 113 mmol/L (96-108); Estimated Glomerular Filt Rate > 60; Glucose Random 96 mg/dL (60-115); Potassium 4.5 mmol/L (3.3-5.1); Sodium 138 mmol/L (135-145)
[2024-12-13 07:33] VITALS: BP 98/53; RESP 18; TEMP 36.9; O2SAT 94
[2024-12-13] MEDS: Multivitamin TABLET 1 TAB PO (08:17)
[2024-12-13] MEDS: Folic Acid 1 MG TABLET PO (08:17)
[2024-12-13] MEDS: Acetaminophen 325 MG TABLET 975 MG PO (08:18)
[2024-12-13] MEDS: Thiamine HCL 100 MG TABLET PO (08:18)
[2024-12-13] MEDS: Oseltamivir Phosphate 75 MG CAPSULE PO ×2 (08:20→21:35)
--- NOTE | 2024-12-13 10:56 | P.PNIM_ITS ---
Subjective Subjective Date of Service: 12/13/24 Interval History: No sings of withdrawal nursing reporting diarrhea no fever Physical Exam 2 Vital Signs: Vital Signs: Last Vital Signs Temp 98.5 F 12/13/24 07:33 Pulse 79 12/13/24 03:48 Resp 18 12/13/24 07:33 BP 98/53 L 12/13/24 07:33 Pulse Ox 94 12/13/24 07:33 O2 Del Method Nasal Cannula 12/13/24 07:33 O2 Flow Rate 2 12/13/24 07:33 BMI result Body Mass Index 19.4 Const: Other: General: , no acute distress, alert Resp: CTA bilateral CVS: S1,S2,RRR GI: +BS, NT, no distention Skin: No rash Neuro: motor grossly intact Psych: appropriate affect Objective Data Active Medications Acetaminophen (Acetaminophen 325 Mg Tablet) 975 mg PO Q6H PRN PRN Reason: Pain, Mild 1-3,fever,headache Last Admin: 12/13/24 08:18 Dose: 975 mg Documented By: VADIM Calcium Carbonate (Calcium Carbonate 750 Mg Tab.Chew) 750 mg PO Q4H PRN PRN Reason: Heartburn Ceftriaxone Sodium (Ceftriaxone Sodium 1 Gm Vial) 1 gm IVPUSH Q24H [facility] Last Admin: 12/12/24 20:47 Dose: 1 gm Documented By: JENNIFER Folic Acid (Folic Acid 1 Mg Tablet) 1 mg PO DAILY [facility] Stop: 12/14/24 08:59 Last Admin: 12/13/24 08:17 Dose: 1 mg Documented By: VADIM Doxycycline Hyclate 100 mg/ (Sodium Chloride) 250 mls @ 166.67 mls/hr IV Q12H [facility] Last Infusion: 12/13/24 06:46 Dose: Infused Documented By: CAMILA-BEATRIZ Magnesium Hydroxide (Milk Of Magnesia 30 Ml Oral.Susp) 30 ml PO DAILY PRN PRN Reason: Constipation Melatonin (Melatonin 3 Mg Tablet) 6 mg PO BEDTIME PRN PRN Reason: Insomnia Multivitamins/Vitamin C (Multivitamin Tablet) 1 tab PO DAILY [facility] Stop: 12/14/24 08:59 Last Admin: 12/13/24 08:17 Dose: 1 tab Documented By: VADIM Ondansetron HCl (Ondansetron Hcl 4 Mg/2 Ml Vial) 4 mg IVPUSH Q8H PRN PRN Reason: Nausea and Vomiting Oseltamivir Phosphate (Oseltamivir Phosphate 75 Mg Capsule) 75 mg PO Q12H [facility] Stop: 12/16/24 22:01 Last Admin: 12/13/24 08:20 Dose: 75 mg Documented By: VADIM Pantoprazole Sodium (Pantoprazole Sodium 40 Mg/10 Ml Vial) 40 mg IVPUSH BID@0630,1830 [facility] Last Admin: 12/13/24 05:05 Dose: 40 mg Documented By: KEREN Pharmacy Consult (Consult Rx Etoh Phenob Im/Po) 1 each MISCELLANE ONCE PRN; Protocol PRN Reason: Consult order Phenobarbital (Phenobarbital 15 Mg Tablet) 15 mg PO BID@0600,1800 [facility] Stop: 12/15/24 06:01 Phenobarbital (Phenobarbital 15 Mg Tablet) 15 mg PO DAILY@0600 [facility] Stop: 12/17/24 06:01 Sodium Chloride (0.9 % Sodium Chloride Flush 3 Ml Syringe) 3 ml IVFLUSH QSHIFT [facility] Last Admin: 12/13/24 08:18 Dose: Not Given Documented By: VADIM Non-Admin Reason: IV Running Thiamine HCl (Thiamine Hcl 100 Mg Tablet) 100 mg PO DAILY [facility] Stop: 12/14/24 08:59 Last Admin: 12/13/24 08:18 Dose: 100 mg Documented By: VADIM Labs 12/12/24 07:00 12/13/24 06:35 Labs: Laboratory Results - last 24 hr 12/13/24 06:35 Hold Purple Top SEE NOTE Anion Gap 9 L Estim Creat Clear Calc 107.0 Estimated GFR > 60 Random Glucose 96 Calcium 8.3 L Microbiology Microbiology Results: Microbiology 12/10/24 22:44 Blood Culture - Preliminary Blood - Venous No growth after 48 hours. 12/10/24 22:40 Blood Culture - Preliminary Blood - Venous No growth after 48 hours. Assessment and Plan (1) Aspiration pneumonia: Status: Resolved Plan 54 yo male with a pmhx significant for alcohol use disorder with alcoholic cirrhosis, GERD, with recent admission due to sepsis with aspiration pneumonia discharged on 12/03/24, presented back to the ED today initially due to back pain and knee pain. The patient reports that he is actually unsure why he is here or how he got here. He does report a dry cough, sore throat and fatigue. Patient has frequent ED visits due to alcohol intoxication and homelessness. He was found to be hypoxic on room air at 85% positive for flu a and recurrence of pneumonia. Sepsis and acute hypoxic respiratory failure secondary to pneumonia and influenza A - Hypotension resolved. Blood cultures pending - chest x-ray with ill-defined bibasilar lung opacities, could be atelectasis or consolidation, and cardiomegaly with possible volume overload - hypoxic with improvement on 2 L via nasal cannula - flu A positive -continue Ceftriaxone and Doxy -Tamiflu for influenza Diarrha--check cdif Alcohol intoxication/alcohol abuse -ccontinue phenobarbital protocol, folic acid, thiamine. -Addiction med consult cirrhosis, anemia - recent GI bleed on admission earlier this month. No obvious signs of bleeding at this time. - EGD 11/30/24 showed esophageal varices (banded), portal hypertensive gastropathy, alcoholic gastritis and esophageal candidiasis. It was recommended patient take Carafate 1 g b.i.d., Prilosec 40 mg q.d. and fluconazole 100 mg q.d. x3 weeks and repeat EGD in 4 weeks. - hemoglobin 8.3, hematocrit 24.9, no need for transfusion at this time, monitor closely - pantoprazole 40mg BID, hold gi consult at this time Pancytopenia, chronic -- due to splenomegaly in the setting of cirrhosis and alcoholism - HIV negative recently - monitor CBC Hypomagnesemia--replaced, repeat and give additional if needed Hyperchloremic metabolic acidosis, no gap, alcoholic ketosis, starvation and mostly chronic -avoid NS, give LR and repeat, no bicab replacement at this time. Full code VTE prophylaxis: Pneumoboots, given signficant thrombocytopen given recurent hospitilization, chronic alcoholism, non-compliance... A section 35 is being pursued Quality Stroke Does the patient have a stroke diagnosis?: No VTE Prior VTE?: No VTE Risk Level:: Medical - moderate - high VTE Device Contraindication: N/A - Device Ordered VTE Drug Contraindication: Treatment Not Indicated
[2024-12-13 11:23] VITALS: BP 96/57; PULSE 84; RESP 16; TEMP 36.5; O2SAT 95
[2024-12-13 11:25] LABS: Basophils Percent Auto 0.8 % (0-2); Eosinophils Absolute Auto 0.1 X10*3/uL (0.0-0.4); Eosinophils Percent Auto 2.7 % (0-4); Hematocrit 26.5 % (42.0-52.0); Hemoglobin 8.6 g/dl (14.0-18.0); Imm Gran Abs Auto 0.01 X10*3/uL (0.00-0.03); Imm Gran Pct Auto 0.4 % (0.0-0.4); Lymphocytes Percent Auto 39.5 % (20-40); MANUAL DIFF FLAG SCAN; Mean Corpuscular HGB Conc 32.5 g/dl (31.0-36.0); Mean Corpuscular Volume 98.5 fL (80.0-98.0); Mean Platelet Volume 12.6 fL (9.4-12.4); Monocytes Absolute Auto 0.2 X10*3/uL (0.1-1.2); Neutrophils Absolute Auto 1.2 x10*3/uL (2.0-8.3); Neutrophils Percent Auto 47.6 % (45-73); Red Blood Count 2.69 X10*6/uL (4.60-5.80); Red Cell Distribution Width 15.6 % (11.0-16.0); SCAN SMEAR FLAG 1; White Blood Count 2.6 X10*3/uL (4.8-10.8)
[2024-12-13 11:34] LABS: Platelet Count 51 X10*3/uL (160-400)
[2024-12-13 11:47] LABS: SLIDE REVIEW VERIFIED
[2024-12-13] MEDS: 0.9 % Sodium Chloride Flush 3 ML SYRINGE IVFLUSH ×2 (12:48→21:38)
[2024-12-13 15:31] VITALS: BP 103/51; PULSE 74; RESP 16; TEMP 36.7; O2SAT 91
--- NOTE | 2024-12-13 16:19 | MHC.CM.PN ---
EMR reviewed per MD rounds, pt is not medically cleared for discharge due section 35 paperwork being submitted, pt will remain hospitalized through the weekend.
[2024-12-13] MEDS: PHENobarbitaL 15 MG TABLET PO (17:17)
[2024-12-13] MEDS: Doxycycline Monohydrate 100 MG CAPSULE PO (17:17)
[2024-12-13 19:56] VITALS: BP 92/53; PULSE 81; RESP 20; TEMP 36.9; O2SAT 95
[2024-12-13] MEDS: cefTRIAXone sodium 1 GM VIAL IVPUSH (21:35)
[2024-12-13] MEDS: Melatonin 3 MG TABLET 6 MG PO (21:41)
[2024-12-14] VITALS: BP 92/55; PULSE 82; RESP 20; TEMP 37.2; O2SAT 94
[2024-12-14 04:00] VITALS: BP 98/51; PULSE 76; RESP 20; TEMP 36.8; O2SAT 96
[2024-12-14] MEDS: PHENobarbitaL 15 MG TABLET PO ×2 (05:35→16:43)
[2024-12-14] MEDS: Pantoprazole Sodium 40 MG/10 ML VIAL IVPUSH (05:35)
[2024-12-14] MEDS: Doxycycline Monohydrate 100 MG CAPSULE PO ×2 (05:35→16:43)
[2024-12-14 07:19] VITALS: BP 111/77; PULSE 73; TEMP 36.1; O2SAT 96
[2024-12-14] MEDS: Oseltamivir Phosphate 75 MG CAPSULE PO ×2 (08:01→20:55)
[2024-12-14] MEDS: 0.9 % Sodium Chloride Flush 3 ML SYRINGE IVFLUSH ×3 (08:01→20:59)
--- NOTE | 2024-12-14 10:18 | P.PNIM_ITS ---
Subjective Subjective Date of Service: 12/14/24 Interval History: No sings of withdrawal off O2 and sating 91 on room air no more diarrhea reported, cdif uncollected Physical Exam 2 Vital Signs: Vital Signs: Last Vital Signs Temp 97.0 F 12/14/24 07:19 Pulse 73 12/14/24 07:19 Resp 20 12/14/24 04:00 BP 111/77 12/14/24 07:19 Pulse Ox 96 12/14/24 07:19 O2 Del Method Nasal Cannula 12/14/24 07:19 O2 Flow Rate 2 12/14/24 07:19 BMI result Body Mass Index 19.4 Const: Other: General: AO X 3, no acute distress Resp: CTA bilateral CVS: S1,S2,RRR GI: +BS, NT, no distention Skin: No rash Neuro: motor grossly intact Psych: appropriate affect Objective Data Active Medications Acetaminophen (Acetaminophen 325 Mg Tablet) 975 mg PO Q6H PRN PRN Reason: Pain, Mild 1-3,fever,headache Last Admin: 12/13/24 08:18 Dose: 975 mg Documented By: VADIM Calcium Carbonate (Calcium Carbonate 750 Mg Tab.Chew) 750 mg PO Q4H PRN PRN Reason: Heartburn Ceftriaxone Sodium (Ceftriaxone Sodium 1 Gm Vial) 1 gm IVPUSH Q24H [facility] Last Admin: 12/13/24 21:35 Dose: 1 gm Documented By: KAYLAH Doxycycline Monohydrate (Doxycycline Monohydrate 100 Mg Capsule) 100 mg PO Q12H [facility] Last Admin: 12/14/24 05:35 Dose: 100 mg Documented By: KAYLAH Magnesium Hydroxide (Milk Of Magnesia 30 Ml Oral.Susp) 30 ml PO DAILY PRN PRN Reason: Constipation Melatonin (Melatonin 3 Mg Tablet) 6 mg PO BEDTIME PRN PRN Reason: Insomnia Last Admin: 12/13/24 21:41 Dose: 6 mg Documented By: KAYLAH Ondansetron HCl (Ondansetron Hcl 4 Mg/2 Ml Vial) 4 mg IVPUSH Q8H PRN PRN Reason: Nausea and Vomiting Oseltamivir Phosphate (Oseltamivir Phosphate 75 Mg Capsule) 75 mg PO Q12H [facility] Stop: 12/16/24 22:01 Last Admin: 12/14/24 08:01 Dose: 75 mg Documented By: VADIM Pharmacy Consult (Consult Rx Etoh Phenob Im/Po) 1 each MISCELLANE ONCE PRN; Protocol PRN Reason: Consult order Phenobarbital (Phenobarbital 15 Mg Tablet) 15 mg PO BID@0600,1800 [facility] Stop: 12/15/24 06:01 Last Admin: 12/14/24 05:35 Dose: 15 mg Documented By: KAYLAH Phenobarbital (Phenobarbital 15 Mg Tablet) 15 mg PO DAILY@0600 [facility] Stop: 12/17/24 06:01 Sodium Chloride (0.9 % Sodium Chloride Flush 3 Ml Syringe) 3 ml IVFLUSH QSHIFT [facility] Last Admin: 12/14/24 08:01 Dose: 3 ml Documented By: VADIM Labs 12/13/24 06:35 12/13/24 06:35 Labs: Laboratory Results - last 24 hr 12/13/24 06:35 MCV 98.5 H MCH 32.0 MCHC 32.5 RDW 15.6 Plt Count 51 L MPV 12.6 H Immature Gran % (Auto) 0.4 Neut % (Auto) 47.6 Lymph % (Auto) 39.5 [place] % (Auto) 9.0 Eos % (Auto) 2.7 Baso % (Auto) 0.8 Lymph # (Auto) 1.0 L [place] # (Auto) 0.2 Eos # (Auto) 0.1 Baso # (Auto) 0.0 Abs Immat Gran (auto) 0.01 Absolute Neuts (auto) 1.2 L Absolute Nucleated RBC 0.000 Nucleated RBC % (auto) 0.0 Smear Tech's Comments VERIFIED Assessment and Plan (1) Aspiration pneumonia: Status: Resolved Plan 54 yo male with a pmhx significant for alcohol use disorder with alcoholic cirrhosis, GERD, with recent admission due to sepsis with aspiration pneumonia discharged on 12/03/24, presented back to the ED today initially due to back pain and knee pain. The patient reports that he is actually unsure why he is here or how he got here. He does report a dry cough, sore throat and fatigue. Patient has frequent ED visits due to alcohol intoxication and homelessness. He was found to be hypoxic on room air at 85% positive for flu a and recurrence of pneumonia. Sepsis and acute hypoxic respiratory failure secondary to pneumonia and influenza A - Hypotension resolved. Blood cultures so far negative - chest x-ray with ill-defined bibasilar lung opacities, could be atelectasis or consolidation, and cardiomegaly with possible volume overload - hypoxic with improvement on 2 L via nasal cannula - flu A positive--Tamiflu -continue Ceftriaxone and Doxy Diarrha--check cdif, Alcohol intoxication/alcohol abuse -ccontinue phenobarbital protocol, folic acid, thiamine. -Addiction med consult cirrhosis, anemia - recent GI bleed on admission earlier this month. No obvious signs of bleeding at this time. - EGD 11/30/24 showed esophageal varices (banded), portal hypertensive gastropathy, alcoholic gastritis and esophageal candidiasis. It was recommended patient take Carafate 1 g b.i.d., Prilosec 40 mg q.d. and fluconazole 100 mg q.d. x3 weeks and repeat EGD in 4 weeks. - hemoglobin 8.3, hematocrit 24.9, no need for transfusion at this time, monitor closely - pantoprazole 40mg BID, hold gi consult at this time Pancytopenia, chronic -- due to splenomegaly in the setting of cirrhosis and alcoholism - HIV negative recently - monitor CBC Hypomagnesemia--replaced, repeat and give additional if needed Hyperchloremic metabolic acidosis, no gap, alcoholic ketosis, starvation and mostly chronic -avoid NS, give LR and repeat, no bicab replacement at this time. Full code VTE prophylaxis: Pneumoboots, given signficant thrombocytopen given recurent hospitilization, chronic alcoholism, non-compliance with care that is jeopardizing his health, section 35 is being filed.f May transfer to med/surg Quality Stroke Does the patient have a stroke diagnosis?: No VTE Prior VTE?: No VTE Risk Level:: Medical - moderate - high VTE Device Contraindication: N/A - Device Ordered VTE Drug Contraindication: Treatment Not Indicated
[2024-12-14 15:22] VITALS: BP 105/76; PULSE 75; RESP 17; TEMP 36.3; O2SAT 95
[2024-12-14 20:00] VITALS: BP 95/54; PULSE 81; RESP 20; TEMP 37.1; O2SAT 91
[2024-12-14] MEDS: cefTRIAXone sodium 1 GM VIAL IVPUSH (20:55)
[2024-12-15 01:00] VITALS: BP 90/55; PULSE 83; RESP 20; TEMP 37.3; O2SAT 92
[2024-12-15 04:00] VITALS: BP 95/53; PULSE 79; RESP 20; TEMP 37.4; O2SAT 91
[2024-12-15] MEDS: Doxycycline Monohydrate 100 MG CAPSULE PO ×2 (05:42→17:00)
[2024-12-15] MEDS: PHENobarbitaL 15 MG TABLET PO (05:42)
[2024-12-15 08:00] VITALS: BP 99/57; PULSE 83; RESP 14; TEMP 37.2; O2SAT 94
[2024-12-15] MEDS: Oseltamivir Phosphate 75 MG CAPSULE PO ×2 (08:43→20:05)
[2024-12-15] MEDS: 0.9 % Sodium Chloride Flush 3 ML SYRINGE IVFLUSH ×2 (08:46→20:05)
--- NOTE | 2024-12-15 09:49 | P.PNIM_ITS ---
Subjective Subjective Date of Service: 12/15/24 Interval History: No sings of withdrawal off O2 and sating 94 on room air no more diarrhea reported, cdif uncollected Physical Exam 2 Vital Signs: Vital Signs: Last Vital Signs Temp 98.9 F 12/15/24 08:00 Pulse 83 12/15/24 08:00 Resp 14 12/15/24 08:00 BP 99/57 L 12/15/24 08:00 Pulse Ox 94 12/15/24 08:00 O2 Del Method Room Air 12/15/24 08:00 O2 Flow Rate 2 12/14/24 07:19 BMI result Body Mass Index 19.4 Objective Data Active Medications Acetaminophen (Acetaminophen 325 Mg Tablet) 975 mg PO Q6H PRN PRN Reason: Pain, Mild 1-3,fever,headache Last Admin: 12/13/24 08:18 Dose: 975 mg Documented By: VADIM Calcium Carbonate (Calcium Carbonate 750 Mg Tab.Chew) 750 mg PO Q4H PRN PRN Reason: Heartburn Ceftriaxone Sodium (Ceftriaxone Sodium 1 Gm Vial) 1 gm IVPUSH Q24H [facility] Last Admin: 12/14/24 20:55 Dose: 1 gm Documented By: KAYLAH Doxycycline Monohydrate (Doxycycline Monohydrate 100 Mg Capsule) 100 mg PO Q12H [facility] Last Admin: 12/15/24 05:42 Dose: 100 mg Documented By: KAYLAH Magnesium Hydroxide (Milk Of Magnesia 30 Ml Oral.Susp) 30 ml PO DAILY PRN PRN Reason: Constipation Melatonin (Melatonin 3 Mg Tablet) 6 mg PO BEDTIME PRN PRN Reason: Insomnia Last Admin: 12/13/24 21:41 Dose: 6 mg Documented By: KAYLAH Ondansetron HCl (Ondansetron Hcl 4 Mg/2 Ml Vial) 4 mg IVPUSH Q8H PRN PRN Reason: Nausea and Vomiting Oseltamivir Phosphate (Oseltamivir Phosphate 75 Mg Capsule) 75 mg PO Q12H [facility] Stop: 12/16/24 22:01 Last Admin: 12/15/24 08:43 Dose: 75 mg Documented By: VADIM Pharmacy Consult (Consult Rx Etoh Phenob Im/Po) 1 each MISCELLANE ONCE PRN; Protocol PRN Reason: Consult order Phenobarbital (Phenobarbital 15 Mg Tablet) 15 mg PO DAILY@0600 [facility] Stop: 12/17/24 06:01 Sodium Chloride (0.9 % Sodium Chloride Flush 3 Ml Syringe) 3 ml IVFLUSH QSHIFT [facility] Last Admin: 12/15/24 08:46 Dose: 3 ml Documented By: VADIM Labs 12/13/24 06:35 12/13/24 06:35 Assessment and Plan (1) Aspiration pneumonia: Status: Resolved Plan 54 yo male with a pmhx significant for alcohol use disorder with alcoholic cirrhosis, GERD, with recent admission due to sepsis with aspiration pneumonia discharged on 12/03/24, presented back to the ED today initially due to back pain and knee pain. The patient reports that he is actually unsure why he is here or how he got here. He does report a dry cough, sore throat and fatigue. Patient has frequent ED visits due to alcohol intoxication and homelessness. He was found to be hypoxic on room air at 85% positive for flu a and recurrence of pneumonia. Sepsis and acute hypoxic respiratory failure secondary to pneumonia and influenza A, improved and off O2, sepsis, hypotension resolved. - flu A positive--Tamiflu -continue Ceftriaxone and Doxy Diarrha--no further episode, no c dif collected in 2 days, cancel Alcohol intoxication/alcohol abuse, now sings of withdrawal at this time -ccontinue phenobarbital protocol, folic acid, thiamine. -Addiction med consult cirrhosis, anemia - recent GI bleed on admission earlier this month. No obvious signs of bleeding at this time. - EGD 11/30/24 showed esophageal varices (banded), portal hypertensive gastropathy, alcoholic gastritis and esophageal candidiasis. It was recommended patient take Carafate 1 g b.i.d., Prilosec 40 mg q.d. and fluconazole 100 mg q.d. x3 weeks and repeat EGD in 4 weeks. - hemoglobin 8.3, hematocrit 24.9, no need for transfusion at this time, monitor closely - pantoprazole 40mg BID, hold gi consult at this time Pancytopenia, chronic -- due to splenomegaly in the setting of cirrhosis and alcoholism - HIV negative recently - monitor CBC Hypomagnesemia--replaced, repeat level Hyperchloremic metabolic acidosis, no gap, alcoholic ketosis, starvation and mostly chronic -avoid NS, give LR and repeat, no bicab replacement at this time. Full code VTE prophylaxis: Pneumoboots, given signficant thrombocytopen given recurent hospitilization, chronic alcoholism, non-compliance with care that is jeopardizing his health, section 35 is being filed.f May transfer to med/surg Quality Stroke Does the patient have a stroke diagnosis?: No VTE Prior VTE?: No VTE Risk Level:: Medical - moderate - high VTE Device Contraindication: N/A - Device Ordered VTE Drug Contraindication: Treatment Not Indicated
[2024-12-15 10:14] LABS: Hematocrit 26.6 % (42.0-52.0); Hemoglobin 8.6 g/dl (14.0-18.0); Mean Corpuscular HGB Conc 32.3 g/dl (31.0-36.0); Mean Corpuscular Hemoglobin 31.9 pg (27.0-33.0); Mean Corpuscular Volume 98.5 fL (80.0-98.0); Mean Platelet Volume 12.5 fL (9.4-12.4); Red Cell Distribution Width 15.8 % (11.0-16.0)
[2024-12-15 10:22] LABS: Platelet Count 55 X10*3/uL (160-400); White Blood Count 2.5 X10*3/uL (4.8-10.8)
[2024-12-15 10:54] LABS: Anion Gap 11 (12-20); Blood Urea Nitrogen 15 mg/dL (9-16); Calcium 8.6 mg/dL (8.4-10.2); Carbon Dioxide 19 mmol/L (22-29); Chloride 112 mmol/L (96-108); Creatinine Clr Calc Pharmacy 95.9; Estimated Glomerular Filt Rate > 60; Glucose Random 89 mg/dL (60-115); Potassium 4.3 mmol/L (3.3-5.1); Sodium 138 mmol/L (135-145)
[2024-12-15] MEDS: Magnesium Sulfate/H2O 2 GM/50 ML PIGGYBACK IV ×2 (11:06→13:42)
[2024-12-15 12:29] LABS: Magnesium 1.1 mg/dL (1.6-2.6)
[2024-12-15 15:21] VITALS: BP 92/52; PULSE 79; RESP 16; TEMP 36.8; O2SAT 95
[2024-12-15 19:40] VITALS: BP 90/53; PULSE 86; RESP 18; TEMP 36.8; O2SAT 92
[2024-12-15] MEDS: cefTRIAXone sodium 1 GM VIAL IVPUSH (20:05)
[2024-12-16 03:33] VITALS: BP 95/80; PULSE 82; RESP 18; TEMP 37.2; O2SAT 92
[2024-12-16] MEDS: Doxycycline Monohydrate 100 MG CAPSULE PO ×2 (06:18→17:15)
[2024-12-16] MEDS: PHENobarbitaL 15 MG TABLET PO (06:18)
[2024-12-16 07:29] VITALS: BP 90/42; PULSE 78; RESP 16; TEMP 37.7; O2SAT 88
[2024-12-16] MEDS: Acetaminophen 325 MG TABLET 975 MG PO ×2 (08:11→22:02)
[2024-12-16] MEDS: Oseltamivir Phosphate 75 MG CAPSULE PO ×2 (08:12→22:02)
[2024-12-16] MEDS: 0.9 % Sodium Chloride Flush 3 ML SYRINGE IVFLUSH ×3 (08:12→22:03)
[2024-12-16 09:34] LABS: Anion Gap 11 (12-20); Blood Urea Nitrogen 14 mg/dL (9-16); Calcium 8.5 mg/dL (8.4-10.2); Carbon Dioxide 20 mmol/L (22-29); Chloride 110 mmol/L (96-108); Creatinine Clr Calc Pharmacy 97.3; Estimated Glomerular Filt Rate > 60; Glucose Random 90 mg/dL (60-115); Magnesium 1.6 mg/dL (1.6-2.6); Potassium 4.7 mmol/L (3.3-5.1); Sodium 136 mmol/L (135-145)
[2024-12-16 10:28] VITALS: BP 85/47; PULSE 81; RESP 16; TEMP 37.2; O2SAT 93
--- NOTE | 2024-12-16 10:40 | PM.DS ---
DS: Providers Provider Date of Service: 12/16/24 Date of admission: 12/11/24 01:12 Primary care physician: Unknown Physician DS: Diagnosis Discharge Diagnosis (1) Aspiration pneumonia: Status: Resolved DS: Summary Hospital Course Hospital Course: admission hpi Chief Complaint: back pain, knee pain Pt is a 54 yo male with a pmhx significant for alcohol use disorder with alcoholic cirrhosis, GERD, with recent admission due to sepsis with aspiration pneumonia discharged on 12/03/24, presented back to the ED today initially due to back pain and knee pain. The patient reports that he is actually unsure why he is here or how he got here. He does report a dry cough, sore throat and fatigue. He was found to be hypoxic in the ED at 85% on room air, improved with 2 L via nasal cannula. He denies any headache, fever, chills, nausea, vomiting, abdominal pain or lower extremity edema. He has not had any hematemesis, melena or hematochezia. He reports his last drink was about 24 hours ago but he does not have any alcohol withdrawal symptoms including anxiety, tremor, visual or auditory hallucinations, headache, diaphoresis. Hospital course: 54 yo male with a pmhx significant for alcohol use disorder with alcoholic cirrhosis, GERD, with recent admission due to sepsis with aspiration pneumonia discharged on 12/03/24, and before that he was admitted from October 21 to november 15 for similar presentation. He presented back to the ED today initially due to back pain and knee pain. The patient reports that he is actually unsure why he is here or how he got here. He does report a dry cough, sore throat and fatigue. Patient has frequent ED visits due to alcohol intoxication and homelessness. He was found to be hypoxic on room air at 85% positive for flu a and recurrence of pneumonia and admitted for fruther manaement Sepsis and acute hypoxic respiratory failure secondary to pneumonia and influenza A, improved and off O2, sepsi. He has been treated since admission with Ceftriaxone and Doxycyline and will be transition to Augmentin and Doxycyline for a total of 10 days. He has completed 5 days of Tamiflu Diarrha--no further episode, no c dif collected in 2 days, cancel Alcohol intoxication/alcohol abuse, no sings of withdrawal at this time--Was treated with Phenobarbtial, folic acid and thiamine to prevent withdrawal cirrhosis, chronic anemia - recent GI bleed on admission earlier this month. No obvious signs of bleeding at this time. - EGD 11/30/24 showed esophageal varices (banded), portal hypertensive gastropathy, alcoholic gastritis and esophageal candidiasis. It was recommended patient take Carafate 1 g b.i.d., Prilosec 40 mg q.d. and fluconazole 100 mg q.d. x3 weeks and repeat EGD in 4 weeks. - hemoglobin 8.3, hematocrit 24.9, no need for transfusion at this time, monitor closely -to ontinue omepralzol 40 mg twice daily Pancytopenia, chronic -- due to splenomegaly in the setting of cirrhosis and alcoholism - HIV negative recently - monitor CBC Hypomagnesemia--replaced, repeat level 1.6, will give oral supplement Hyperchloremic metabolic acidosis, no gap, alcoholic ketosis, starvation and mostly chronic -hydrated and improved and has underlying chronic metabolic acidosis with bicab ranging from 17 to 21 Chronic hypotension,likey related chronic liver disease SBP is usually around 90 and is assymptomatic Given the patient's recalcitrant alcohol use endangering his health, the court was petition for him to undergone supervise treatment, motion was granted on this date december [address] Time Attestation Discharge Coordination Time (in mins): 45 Quality: Safe Use of Opioids Does Pt have an Active Cancer Diagnosis on the Problem List?: No Quality: Stroke Does the patient have a stroke diagnosis?: No Physical Exam Vital Signs: Vital Signs: Last Vital Signs Temp 99.0 F 12/16/24 10:28 Pulse 81 12/16/24 10:28 Resp 16 12/16/24 10:28 BP 85/47 L 12/16/24 10:28 Pulse Ox 93 12/16/24 10:28 O2 Del Method Room Air 12/16/24 10:28 O2 Flow Rate 2 12/14/24 07:19 BMI result Body Mass Index 19.4 DS: Data Data Completed and Pending Labs on day of discharge: Laboratory Results - last 24 hr 12/15/24 12/16/24 10:09 08:37 Sodium 138 136 Potassium 4.3 4.7 Chloride 112 H 110 H Carbon Dioxide 19 L 20 L Anion Gap 11 L 11 L BUN 15 14 Creatinine 0.67 0.66 Estim Creat Clear Calc 95.9 97.3 Estimated GFR > 60 > 60 Random Glucose 89 90 Calcium 8.6 8.5 Magnesium 1.1 L* 1.6 Discharge Plan Discharge Anticipated Discharge Date/Time: 12/16/24 10:40 Patient Disposition: Xfer SNF Discharge Diagnosis: Sepsis, Influenza, alcohol intoxication, hypoxia Referrals: Physician,Unknown J [Primary Care Provider] - 1 Week Discharge Medications: No Action No Known Home Meds Diet: Advance to usual diet Activity on Discharge: As tolerated Stand Alone Forms: Patient Portal Discharge page Print Language: Citizen Of [place] Care Plan Goals: recovery from sepsis from influena, and pneumonia alocoholism cirrhosis of the liver Health Concerns: Chronic alcoholism Cirrhosis of the liver recurrent hospitalization for pneumonia nd respiratory illness, and gi bleeding Chronic hypotension Plan of Treatment: Take Augmentin and Doxcycline for pneumonia avoid alcohol Assessment: see above
[2024-12-16] MEDS: Amoxicillin/Potassium Clav 875 MG TABLET PO ×2 (10:54→22:02)
[2024-12-16] MEDS: Lactated Ringers 500 ML IVCONT (10:54)
--- NOTE | 2024-12-16 11:30 | P.PNIM_ITS ---
Subjective Subjective Date of Service: 12/16/24 Interval History: His blood pressure is a bit lower than usual but is assymptomatic He otherwise has no new complaint Physical Exam 2 Vital Signs: Vital Signs: Last Vital Signs Temp 99.0 F 12/16/24 10:28 Pulse 81 12/16/24 10:28 Resp 16 12/16/24 10:28 BP 85/47 L 12/16/24 10:28 Pulse Ox 93 12/16/24 10:28 O2 Del Method Room Air 12/16/24 10:28 O2 Flow Rate 2 12/14/24 07:19 BMI result Body Mass Index 19.4 General: AO X 3, no acute distress Resp: CTA bilateral CVS: S1,S2,RRR GI: +BS, NT, no distention Skin: No rash Neuro: motor grossly intact Psych: appropriate affect Objective Data Active Medications Acetaminophen (Acetaminophen 325 Mg Tablet) 975 mg PO Q6H PRN PRN Reason: Pain, Mild 1-3,fever,headache Last Admin: 12/16/24 08:11 Dose: 975 mg Documented By: SHREE Amoxicillin/Clavulanate Potassium (Amoxicillin/Potassium Clav 875 Mg Tablet) 875 mg PO Q12H [facility] Last Admin: 12/16/24 10:54 Dose: 875 mg Documented By: SHREE Calcium Carbonate (Calcium Carbonate 750 Mg Tab.Chew) 750 mg PO Q4H PRN PRN Reason: Heartburn Doxycycline Monohydrate (Doxycycline Monohydrate 100 Mg Capsule) 100 mg PO Q12H [facility] Last Admin: 12/16/24 06:18 Dose: 100 mg Documented By: JENNIFER Lactated Ringer's (Lr) 500 mls @ 500 mls/hr IVCONT .Q1H ONE Stop: 12/16/24 11:39 Last Admin: 12/16/24 10:54 Dose: 500 mls/hr Documented By: SHREE Magnesium Hydroxide (Milk Of Magnesia 30 Ml Oral.Susp) 30 ml PO DAILY PRN PRN Reason: Constipation Melatonin (Melatonin 3 Mg Tablet) 6 mg PO BEDTIME PRN PRN Reason: Insomnia Last Admin: 12/13/24 21:41 Dose: 6 mg Documented By: KAYLAH Ondansetron HCl (Ondansetron Hcl 4 Mg/2 Ml Vial) 4 mg IVPUSH Q8H PRN PRN Reason: Nausea and Vomiting Oseltamivir Phosphate (Oseltamivir Phosphate 75 Mg Capsule) 75 mg PO Q12H [facility] Stop: 12/16/24 22:01 Last Admin: 12/16/24 08:12 Dose: 75 mg Documented By: SHREE Pharmacy Consult (Consult Rx Etoh Phenob Im/Po) 1 each MISCELLANE ONCE PRN; Protocol PRN Reason: Consult order Phenobarbital (Phenobarbital 15 Mg Tablet) 15 mg PO DAILY@0600 [facility] Stop: 12/17/24 06:01 Last Admin: 12/16/24 06:18 Dose: 15 mg Documented By: JENNIFER Sodium Chloride (0.9 % Sodium Chloride Flush 3 Ml Syringe) 3 ml IVFLUSH QSHIFT [facility] Last Admin: 12/16/24 08:12 Dose: 3 ml Documented By: SHREE Labs 12/15/24 10:09 12/16/24 08:37 Labs: Laboratory Results - last 24 hr 12/15/24 12/16/24 10:09 08:37 Anion Gap 11 L Estim Creat Clear Calc 97.3 Estimated GFR > 60 Random Glucose 90 Calcium 8.5 Magnesium 1.1 L* 1.6 Microbiology Microbiology Results: Microbiology 12/10/24 22:44 Blood Culture - Final Blood - Venous No growth after 5 days. 12/10/24 22:40 Blood Culture - Final Blood - Venous No growth after 5 days. Assessment and Plan (1) Aspiration pneumonia: Status: Resolved Plan 54 yo male with a pmhx significant for alcohol use disorder with alcoholic cirrhosis, GERD, with recent admission due to sepsis with aspiration pneumonia discharged on 12/03/24, and before that he was admitted from October 21 to november 15 for similar presentation. He presented back to the ED today initially due to back pain and knee pain. The patient reports that he is actually unsure why he is here or how he got here. He does report a dry cough, sore throat and fatigue. Patient has frequent ED visits due to alcohol intoxication and homelessness. He was found to be hypoxic on room air at 85% positive for flu a and recurrence of pneumonia and admitted for fruther manaement Sepsis and acute hypoxic respiratory failure secondary to pneumonia and influenza A, improved and off O2, sepsi. He has been treated since admission with Ceftriaxone and Doxycyline and will be transition to Augmentin and Doxycyline for a total of 10 days. He has completed 5 days of Tamiflu Diarrha--no further episode, no c dif collected in 2 days, cancel Alcohol intoxication/alcohol abuse, no sings of withdrawal at this time--Was treated with Phenobarbtial, folic acid and thiamine to prevent withdrawal cirrhosis, chronic anemia - recent GI bleed on admission earlier this month. No obvious signs of bleeding at this time. - EGD 11/30/24 showed esophageal varices (banded), portal hypertensive gastropathy, alcoholic gastritis and esophageal candidiasis. It was recommended patient take Carafate 1 g b.i.d., Prilosec 40 mg q.d. and fluconazole 100 mg q.d. x3 weeks and repeat EGD in 4 weeks. - hemoglobin 8.3, hematocrit 24.9, no need for transfusion at this time, monitor closely -to ontinue omepralzol 40 mg twice daily Pancytopenia, chronic -- due to splenomegaly in the setting of cirrhosis and alcoholism - HIV negative recently - monitor CBC Hypomagnesemia--replaced, repeat level 1.6, will give oral supplement Hyperchloremic metabolic acidosis, no gap, alcoholic ketosis, starvation and mostly chronic -hydrated and improved and has underlying chronic metabolic acidosis with bicab ranging from 17 to 21 Chronic hypotension,likey related chronic liver disease SBP is usually around 90 and is assymptomatic Given the patient's recalcitrant alcohol use endangering his health, the court was petition for him to undergone supervise treatment, motion was granted on this date december 16 [address] [facility] court likely dc tomorrow Quality Stroke Does the patient have a stroke diagnosis?: No VTE Prior VTE?: No VTE Risk Level:: Medical - moderate - high VTE Device Contraindication: N/A - Device Ordered VTE Drug Contraindication: Treatment Not Indicated
[2024-12-16] MEDS: Magnesium Oxide 400 MG TABLET PO ×2 (12:11→17:15)
[2024-12-16 12:14] VITALS: BP 101/47
--- NOTE | 2024-12-16 14:30 | MHC.CM.PN ---
EMR reviewed and per MD rounds, pt is not medically cleared for discharge due to management of hypotentsion, anticipating pt will discharge tomorrow.
[2024-12-16 15:48] VITALS: BP 100/54; PULSE 76; RESP 18; TEMP 37.1; O2SAT 92
[2024-12-16] MEDS: Omeprazole 40 MG CAPSULE.DR PO (17:15)
[2024-12-16 19:22] VITALS: BP 100/50; PULSE 80; RESP 18; TEMP 36.9; O2SAT 92
[2024-12-17 03:20] VITALS: BP 98/56; PULSE 77; RESP 16; TEMP 36.7; O2SAT 92
[2024-12-17] MEDS: PHENobarbitaL 15 MG TABLET PO (05:38)
[2024-12-17] MEDS: Omeprazole 40 MG CAPSULE.DR PO (05:38)
[2024-12-17] MEDS: Doxycycline Monohydrate 100 MG CAPSULE PO (05:38)
[2024-12-17 07:10] VITALS: BP 98/48; PULSE 65; RESP 16; TEMP 37.1; O2SAT 95
[2024-12-17] MEDS: Magnesium Oxide 400 MG TABLET PO (08:44)
[2024-12-17] MEDS: Acetaminophen 325 MG TABLET 975 MG PO (08:45)
[2024-12-17] MEDS: 0.9 % Sodium Chloride Flush 3 ML SYRINGE IVFLUSH (08:47)
--- NOTE | 2024-12-17 10:33 | P.DS_ITS ---
DS: Providers Provider Date of Service: 12/17/24 Date of admission: 12/11/24 01:12 Date of discharge: 12/17/24 Primary care physician: Unknown Physician DS: Diagnosis Discharge Diagnosis (1) Aspiration pneumonia: Status: Resolved DS: Summary Hospital Course Hospital Course: admission hpi Chief Complaint: back pain, knee pain Pt is a 54 yo male with a pmhx significant for alcohol use disorder with alcoholic cirrhosis, GERD, with recent admission due to sepsis with aspiration pneumonia discharged on 12/03/24, presented back to the ED today initially due to back pain and knee pain. The patient reports that he is actually unsure why he is here or how he got here. He does report a dry cough, sore throat and fatigue. He was found to be hypoxic in the ED at 85% on room air, improved with 2 L via nasal cannula. He denies any headache, fever, chills, nausea, vomiting, abdominal pain or lower extremity edema. He has not had any hematemesis, melena or hematochezia. He reports his last drink was about 24 hours ago but he does not have any alcohol withdrawal symptoms including anxiety, tremor, visual or auditory hallucinations, headache, diaphoresis. Hospital course: 54 yo male with a pmhx significant for alcohol use disorder with alcoholic cirrhosis, GERD, with recent admission due to sepsis with aspiration pneumonia discharged on 12/03/24, and before that he was admitted from October 21 to november 15 for similar presentation. He presented back to the ED today initially due to back pain and knee pain. The patient reports that he is actually unsure why he is here or how he got here. He does report a dry cough, sore throat and fatigue. Patient has frequent ED visits due to alcohol intoxication and homelessness. He was found to be hypoxic on room air at 85% positive for flu a and recurrence of pneumonia and admitted for fruther manaement Sepsis and acute hypoxic respiratory failure secondary to pneumonia and influenza A, improved and off O2,He has been treated since admission with Ceftriaxone and Doxycyline and will be transition to Augmentin and Doxycyline for a total of 10 days. He has completed 5 days of Tamiflu. Diarrha--no further episode, no c diff collected due to lack of diarrhea. Alcohol intoxication/alcohol abuse, no sings of withdrawal at this time--Was treated with Phenobarbital, folic acid and thiamine to prevent withdrawal cirrhosis, chronic anemia,- recent GI bleed on admission earlier this month. No obvious signs of bleeding at this time, elevated INR treated with po vitamin K. EGD 11/30/24 showed esophageal varices (banded), portal hypertensive gastropathy, alcoholic gastritis and esophageal candidiasis. It was recommended patient take Carafate 1 g b.i.d., Prilosec 40 mg q.d. and fluconazole 100 mg q.d. x3 weeks and repeat EGD in 4 weeks. hemoglobin 8.3, hematocrit 24.9, did not require blood transfusion, being discharged on Prilosec 40 mg daily and Carafate 1 g b.i.d. strongly recommend to abstain from alcohol Pancytopenia, chronic -- due to spleenomegaly in the setting of cirrhosis and alcoholism, recent HIV negative , hematocrit stable. Hypomagnesemia--replaced, repeat level 1.6, continue oral supplement Hyperchloremic metabolic acidosis, no gap, alcoholic ketosis, starvation and mostly chronic,hydrated and improved and has underlying chronic metabolic acidosis with bicab ranging from 17 to 21 Chronic hypotension,likey related chronic liver disease SBP is usually around 90 and is asymptomatic. Given the patient's recalcitrant alcohol use endangering his health, the court was petition for him to undergo supervise treatment, motion was granted on december 16 by [facility] court. Time Attestation Discharge Coordination Time (in mins): 40 Quality: Safe Use of Opioids Does Pt have an Active Cancer Diagnosis on the Problem List?: No Quality: Stroke Does the patient have a stroke diagnosis?: No Physical Exam Vital Signs: Vital Signs: Last Vital Signs Temp 98.8 F 12/17/24 07:10 Pulse 65 12/17/24 07:10 Resp 16 12/17/24 07:10 BP 98/48 L 12/17/24 07:10 Pulse Ox 95 12/17/24 07:10 O2 Del Method Room Air 12/17/24 07:10 O2 Flow Rate 2 12/14/24 07:19 BMI result Body Mass Index 19.4 Const: Other: General: Alert oriented X 3, no acute distress No JVD Resp: Clear to auscultation, no wheeze, no rhonchi CVS: S1,S2,RRR GI: +BS, non tender, no distention Skin: No rash Neuro: motor grossly intact Psych: appropriate affect DS: Data Data Completed and Pending Completed studies during hospitalization [Text1]: Procedures Control Bleeding in Gastrointestinal Tract, Via Natural or Artificial Opening Endoscopic (08/29/23) Control Bleeding in Nasal Mucosa and Soft Tissue, Via Natural or Artificial Opening (11/29/24) Detoxification Services for Substance Abuse Treatment (11/29/24) Drainage of Peritoneal Cavity, Percutaneous Approach (10/21/24) Excision of Ascending Colon, Via Natural or Artificial Opening Endoscopic, Diagnostic (08/03/23) Excision of Descending Colon, Via Natural or Artificial Opening Endoscopic, Diagnostic (08/03/23) Insertion of Infusion Device into Upper Vein, Percutaneous Approach (08/29/23) Introduction of Mineral-based Topical Hemostatic Agent into Lower GI, Via Natural or Artificial Opening Endoscopic, [employer] (08/03/23) Introduction of Mineral-based Topical Hemostatic Agent into Upper GI, Via Natural or Artificial Opening Endoscopic, [employer] (08/29/23) Occlusion of Esophageal Vein with Extraluminal Device, Via Natural or Artificial Opening Endoscopic (11/29/24) Occlusion of Esophageal Vein, Via Natural or Artificial Opening Endoscopic (01/22/24) Transfusion of Nonautologous Plasma Cryoprecipitate into Peripheral Vein, Percutaneous Approach (08/03/23) Transfusion of Nonautologous Platelets into Peripheral Vein, Percutaneous Approach (11/29/24) Transfusion of Nonautologous Red Blood Cells into Peripheral Vein, Percutaneous Approach (11/29/24) Discharge Plan Discharge Anticipated Discharge Date/Time: 12/16/24 10:40 Patient Disposition: Xfer [facility] Discharge Diagnosis: Sepsis, Influenza, alcohol intoxication, hypoxia Referrals: Physician,Unknown J [Primary Care Provider] - 1 Week Discharge Medications: New doxycycline monohydrate 100 mg Capsule 100 mg PO Q12H Qty: 10 0RF omeprazole 40 mg capsule,delayed release(DR/EC) 40 mg PO DAILY Qty: 30 0RF sucralfate [Carafate] 1 gram tablet 1 g PO BID Qty: 60 0RF acetaminophen 325 mg Tablet 975 mg PO Q6H PRN (Reason: Pain, Mild 1-3,Fever,Headache) Qty: 30 0RF magnesium oxide 400 mg (241.3 mg magnesium) Tablet 400 mg PO DAILY Qty: 30 0RF amoxicillin-pot clavulanate 875-125 mg Tablet 1 tab PO Q12H Qty: 10 0RF Deep Sea Nasal 0.65 % Aerosol,Bard 1 spray intranasal Q1H PRN (Reason: Dryness) Qty: 44 0RF Discharge Orders: Discharge Order (Routine); Ordered 12/17/24 Ordered By: Mariel Rice Diet: Advance to usual diet Activity on Discharge: As tolerated Stand Alone Forms: Patient Portal Discharge page Print Language: [place] Care Plan Goals: recovery from sepsis from influenza, and pneumonia alocoholism cirrhosis of the liver Health Concerns: Chronic alcoholism Cirrhosis of the liver recurrent hospitalization for pneumonia nd respiratory illness, and gi bleeding Chronic hypotension Plan of Treatment: Take Augmentin and Doxcycline for pneumonia Take Prilosec and Carafate for gastritis avoid alcohol Assessment: see above
[2024-12-17] MEDS: Phytonadione (Vit K1) Oral 10 MG/ML AMPUL 5 MG PO (11:12)
[2024-12-17] MEDS: Amoxicillin/Potassium Clav 875 MG TABLET PO (11:12)
--- NOTE | 2024-12-17 11:28 | MHC.CM.PN ---
Patient is medically cleared for dc today. A section 35 is in progress.
[2024-12-17 11:37] VITALS: BP 92/48; PULSE 73; RESP 16; TEMP 36.6; O2SAT 94
== END 2024-12-17 11:43 | disposition skilled nursing facility (03) | DRG 720 ==
LOC: HO.ED 12-11 00:20 → HO.EDOVER 12-11 01:18 → HO.IMC 12-11 14:46
PROVIDERS: Internal Medicine; Physician Assistant Medical; Admitting Provider Physician Assistant; Emergency Provider Emergency Medicine; Visit Provider Hospitalist
DX: A41.9 Sepsis, unspecified organism (principal); J96.01 Acute respiratory failure with hypoxia; J10.00 Influenza due to other identified influenza virus with unspecified type of pneumonia; D61.818 Other pancytopenia; I95.89 Other hypotension; D73.2 Chronic congestive splenomegaly; E88.89 Other specified metabolic disorders; K70.30 Alcoholic cirrhosis of liver without ascites; E83.42 Hypomagnesemia; F10.229 Alcohol dependence with intoxication, unspecified; Y90.8 Blood alcohol level of 240 mg/100 ml or more; Z59.02 Unsheltered homelessness; Z71.41 Alcohol abuse counseling and surveillance of alcoholic; Z20.822 Contact with and (suspected) exposure to COVID-19; Z79.899 Other long term (current) drug therapy
CPT/HCPCS: 0241U; 36415; 71045; 80048; 80053; 80307; 82140; 83605; 83735; 83880; 85025; 85027; 87040; 99285; J0696; J2470; J2560; J3475; J7120

== ENCOUNTER → 2024-12-10 22:24 | Outpatient (BNV) | payer MEDICAID, SELFPAY | PROVIDERS: Emergency Provider Emergency Medicine; Visit Provider Radiology Diagnostic Radiology | DX: I51.7 Cardiomegaly (principal) | CPT/HCPCS: 71045 ==

== ENCOUNTER → 2024-12-11 01:12 | Outpatient (BNV) | payer MEDICAID, SELFPAY | PROVIDERS: Admitting Provider Physician Assistant; Emergency Provider Emergency Medicine; Visit Provider Physician Assistant | DX: J69.0 Pneumonitis due to inhalation of food and vomit (principal) | CPT/HCPCS: 99232 ==

== ENCOUNTER 2025-01-29 21:07 | Emergency (ER) | payer MEDICAID, SELFPAY ==
[2025-01-29 21:18] VITALS: BP 120/80; PULSE 78; O2SAT 95
[2025-01-29 21:26] VITALS: BP 103/44; PULSE 74; RESP 16; TEMP 36.7; O2SAT 92; BMI 21.3
--- NOTE | 2025-01-29 22:10 | PC.NURSE ---
nose bleed controlled. patient sleeping, resp even and non labored, repositioning self on stretcher.
--- NOTE | 2025-01-29 23:13 | ED_ITS ---
HPI - General Adult General Chief complaint: ETOH/Substance Use Stated complaint: nose bleed. no longer bleeding Time Seen by Provider: 01/29/25 23:02 Source: patient and EMS Mode of arrival: EMS Limitations: no limitations and physical limitation History of Present Illness ED Provider: DR. Goldsmith HPI narrative: 55-year-old male with PMH significant for alcohol use disorder with alcoholic liver cirrhosis, GERD. Came in for nosebleed, started about 3 hours ago, no injury or trauma to the face or the nose, patient is not on any anticoagulation, patient overall is a poor historian. Admit to drinking alcohol before coming in. Related Data Previous Rx's ?Medication ?Instructions ?Recorded acetaminophen 325 mg tablet 975 mg (3 x 325 mg) PO Q6H PRN 12/17/24 Pain, Mild 1-3,Fever,Headache #30 tabs amoxicillin 875 mg-potassium 1 tab PO Q12H #10 tabs 12/17/24 clavulanate 125 mg tablet doxycycline monohydrate 100 mg 100 mg PO Q12H #10 caps 12/17/24 capsule magnesium oxide 400 mg (241.3 mg 400 mg PO DAILY #30 tabs 12/17/24 magnesium) tablet omeprazole 40 mg capsule,delayed 40 mg PO DAILY #30 caps 12/17/24 release sodium chloride 0.65 % nasal spray 1 spray intranasal Q1H PRN Dryness 12/17/24 aerosol (Deep Sea Nasal) #44 mL sucralfate 1 gram tablet (Carafate) 1 g PO BID #60 tabs 12/17/24 Allergies Allergy/AdvReac Type Severity Reaction Status Date / Time No Known Allergies Allergy Verified 01/29/25 21:27 [No Known Allergies*] Review of Systems 2 Review of Systems: All other systems are reviewed and are negative Constitutional: Reports as per HPI and Reports no additional constitutional complaints Eyes: Reports as per HPI and Reports no additional eye complaints Reports system reviewed and no additional complaints, except as documented Cardiovascular: Reports as per HPI and Reports no additional cardiovascular complaints Respiratory: Reports as per HPI and Reports no additional respiratory complaints Gastrointestinal: Reports as per HPI and Reports no additional gastrointestinal complaints Genitourinary: Reports no additional female genitourinary complaints Musculoskeletal: Reports no additional musculoskeletal complaints Skin/Breast: Reports system reviewed and no additional complaints, except as docu Psychiatric: Reports no additional psychiatric complaints Endocrine: Reports no additional endocrine complaints Hematologic/Lymphatic: Reports no additional hematologic/lymphatic complaints Allergic/Immunologic: Reports no additional allergic/immunologic complaints Reports system reviewed and no additional complaints, except as documented and Reports Abnormal speech present [facility] Past Medical History Medical History Pancytopenia Alcohol abuse Thrombocytopenia Esophageal varices Alcohol use disorder Acute on chronic anemia Alcoholic liver disease Aspiration pneumonia Thrombocytopenia Malnutrition CHF (congestive heart failure) Anemia Hypomagnesemia Cirrhosis Thrombocytopenia Acute on chronic anemia CHF (congestive heart failure) Anemia Pneumonia Alcohol abuse Alcohol withdrawal syndrome Surgical History No history of previous surgery Social History Social History Household Members: Unknown / Unable to assess Household Members Other:: pt homeless Housing: Unknown / Unable to assess Housing Other:: homeless Do you presently have visiting nurse or other home services: No Unable to assess alcohol history related to: Refusing to respond Alcohol intake: current Alcohol intake frequency: 3 or more drinks per day Alcohol type: hard liquor Comment: 1 assist to bathroom Patient Tobacco Use Status: Former Tobacco user Tobacco use type: Cigarette Second Hand Smoke Exposure: No Advance Directives: Yes Advance Directives on File: Yes Advance Directives Date on File: 07/13/23 Do you have a plan to hurt others: No Plan service: No Physical Exam ED Vital Signs: Vital Signs - 24 hr 01/29/25 21:26 Temperature 98.1 F Pulse Rate 74 Respiratory Rate 16 Blood Pressure 103/44 L Pulse Oximetry 92 Oxygen Delivery Method Room Air BMI result Body Mass Index 21.3 Vital signs have been reviewed and appear to be correct. Blood pressure elevated. Heart rate normal. Respiratory rate normal. Temperature normal. Oxygen saturation normal. Appearance: Alert. Oriented X3. No acute distress. Head: Normal external exam. Normocephalic. Atraumatic. No [place] signs noted. No raccoon eyes noted Eyes: PERRLA. EOMI. Conjunctiva and sclera normal. Eyelids normal. ENT: TM's Normal. Pharynx normal. Uvula midline. Moist mucous membranes. No trismus noted. No drooling noted. No muffled voice noted. Neck: Normal inspection. Neck supple. FROM. No adenopathy. Thyroid Normal. No meningeal signs. No neck mass noted. CVS: Normal heart rate and rhythm. Heart sound normal. No murmurs noted. Pulses normal throughout. Respiratory: No respiratory distress. Painless inspiration. Breath sounds normal. No wheezes/rales/rhonchi noted. Chest nontender. No accessory muscle usage noted or decreased air movement noted. Abdomen: Soft and nontender. Bowel sounds normal in all 4 quadrants. No distention noted. No organomegaly noted. No visible injury noted. Back: No CVA tenderness. Full range of motion noted. Skin: Skin warm and dry. Normal skin color. Normal skin turgor. No rashes/lesions/lacerations noted. Extremities: No lower extremity edema. Extremities exhibit normal range of motion. Extremities nontender. Neuro: Oriented X 3. Cranial nerve exam: II-XII are grossly intact No motor deficit. No sensory deficit. Reflexes normal. Course Reevaluation(s) Reevaluation #1: Patient was observed in the emergency department for many hours with no active nasal bleed, chronic anemia with slight drop of H&H, patient is asymptomatic, no chest pain, declined any other source of bleeding no blood in the urine or stool. Time: 06:00 Medical Decision Making Differential Diagnosis Differential Diagnoses: The differential diagnosis associated with the presentation includes (Severe anemia, anterior epistaxis, posterior epistaxis, electrolyte derangement, thrombocytopenia.) Admission/Observation Consideration of admission/observation: Escalation of care including admission/observation considered Lab Data MDM Lab Attestation statement: I reviewed the patient's lab results. 01/30/25 00:45 01/30/25 00:45 Labs: Lab Results 01/30/25 Range/Units 00:45 WBC 3.5 L (4.8-10.8) X10*3/uL RBC 2.42 L (4.60-5.80) X10*6/uL Hgb 7.7 L (14.0-18.0) g/dl Hct 22.7 L (42.0-52.0) % MCV 93.8 (80.0-98.0) fL MCH 31.8 (27.0-33.0) pg MCHC 33.9 (31.0-36.0) g/dl RDW 15.1 (11.0-16.0) % Plt Count 61 L (160-400) X10*3/uL MPV 11.1 (9.4-12.4) fL Immature Gran % (Auto) 0.3 (0.0-0.4) % Neut % (Auto) 47.5 (45-73) % Lymph % (Auto) 35.5 (20-40) % [place] % (Auto) 12.9 H (2-11) % Eos % (Auto) 2.9 (0-4) % Baso % (Auto) 0.9 (0-2) % Lymph # (Auto) 1.2 (1.2-4.9) X10*3/uL [place] # (Auto) 0.5 (0.1-1.2) X10*3/uL Eos # (Auto) 0.1 (0.0-0.4) X10*3/uL Baso # (Auto) 0.0 (0.0-0.2) X10*3/uL Abs Immat Gran (auto) 0.01 (0.00-0.03) X10*3/uL Absolute Neuts (auto) 1.7 L (2.0-8.3) x10*3/uL Absolute Nucleated RBC 0.000 (0.0-0.012) X10*3/uL Nucleated RBC % (auto) 0.0 (0.0-0.2) /100WBC Sodium 142 (135-145) mmol/L Potassium 3.5 D (3.3-5.1) mmol/L Chloride 118 H (96-108) mmol/L Carbon Dioxide 17 L (22-29) mmol/L Anion Gap 11 L (12-20) BUN 21 H (9-16) mg/dL Creatinine 0.75 (0.5-1.4) mg/dL Estim Creat Clear Calc 93.0 Estimated GFR > 60 Random Glucose 90 (60-115) mg/dL Calcium 9.2 D (8.4-10.2) mg/dL Total Bilirubin 0.4 (0.0-1.0) mg/dL AST 31 (5-37) U/L ALT 6 (0-40) U/L Alkaline Phosphatase 86 (39-117) U/L Total Protein 7.0 (6.5-8.0) g/dL Albumin 2.9 L (3.5-5.0) g/dL Lipase 31 (8-78) U/L Discharge Plan Discharge Clinical Impression: Alcohol abuse, Epistaxis, Anemia Patient Disposition: Still a Patient Instructions: Nosebleed (ED), Alcohol Use Disorder (ED), Anemia (ED) Prescriptions: No Action doxycycline monohydrate 100 mg Capsule 100 mg PO Q12H Qty: 10 0RF omeprazole 40 mg capsule,delayed release(DR/EC) 40 mg PO DAILY Qty: 30 0RF sucralfate [Carafate] 1 gram tablet 1 g PO BID Qty: 60 0RF acetaminophen 325 mg Tablet 975 mg PO Q6H PRN (Reason: Pain, Mild 1-3,Fever,Headache) Qty: 30 0RF magnesium oxide 400 mg (241.3 mg magnesium) Tablet 400 mg PO DAILY Qty: 30 0RF amoxicillin-pot clavulanate 875-125 mg Tablet 1 tab PO Q12H Qty: 10 0RF Deep Sea Nasal 0.65 % Aerosol,[place] 1 spray intranasal Q1H PRN (Reason: Dryness) Qty: 44 0RF Referrals: [facility] [Primary Care Provider] - Print Language: Senegalese
--- NOTE | 2025-01-29 23:24 | PC.NURSE ---
assumed care of patient at this time., report received from Jodi SANCHEZ
[2025-01-30 00:49] LABS: MANUAL DIFF FLAG NO
[2025-01-30 00:57] LABS: Basophils Percent Auto 0.9 % (0-2); Eosinophils Absolute Auto 0.1 X10*3/uL (0.0-0.4); Eosinophils Percent Auto 2.9 % (0-4); Hematocrit 22.7 % (42.0-52.0); Hemoglobin 7.7 g/dl (14.0-18.0); Imm Gran Abs Auto 0.01 X10*3/uL (0.00-0.03); Imm Gran Pct Auto 0.3 % (0.0-0.4); Lymphocytes Absolute Auto 1.2 X10*3/uL (1.2-4.9); Lymphocytes Percent Auto 35.5 % (20-40); Mean Corpuscular HGB Conc 33.9 g/dl (31.0-36.0); Mean Corpuscular Hemoglobin 31.8 pg (27.0-33.0); Mean Corpuscular Volume 93.8 fL (80.0-98.0); Mean Platelet Volume 11.1 fL (9.4-12.4); Monocytes Absolute Auto 0.5 X10*3/uL (0.1-1.2); Monocytes Percent Auto 12.9 % (2-11); Neutrophils Absolute Auto 1.7 x10*3/uL (2.0-8.3); Neutrophils Percent Auto 47.5 % (45-73); Red Blood Count 2.42 X10*6/uL (4.60-5.80); Red Cell Distribution Width 15.1 % (11.0-16.0); White Blood Count 3.5 X10*3/uL (4.8-10.8)
[2025-01-30 00:58] LABS: Platelet Count 61 X10*3/uL (160-400)
[2025-01-30 01:12] LABS: Alanine Aminotransferase 6 U/L (0-40); Albumin Level 2.9 g/dL (3.5-5.0); Alkaline Phosphatase 86 U/L (39-117); Anion Gap 11 (12-20); Aspartate Amino Transferase 31 U/L (5-37); Bilirubin Total 0.4 mg/dL (0.0-1.0); Blood Urea Nitrogen 21 mg/dL (9-16); Calcium 9.2 mg/dL (8.4-10.2); Carbon Dioxide 17 mmol/L (22-29); Chloride 118 mmol/L (96-108); Estimated Glomerular Filt Rate > 60; Glucose Random 90 mg/dL (60-115); Lipase 31 U/L (8-78); Potassium 3.5 mmol/L (3.3-5.1); Sodium 142 mmol/L (135-145)
--- NOTE | 2025-01-30 01:53 | PC.NURSE ---
no active bleeding from nose noted at this time.
--- NOTE | 2025-01-30 02:33 | PC.NURSE ---
pt sleeping comfortably, no apparent distress noted, respirations even and unlabored. pt in 22H within view of nurses station.
--- NOTE | 2025-01-30 03:28 | PC.NURSE ---
pt using urinal at bedside w/o issue
--- NOTE | 2025-01-30 04:28 | PC.NURSE ---
MD cortes aware of patients lab results/low H&H
[2025-01-30 06:04] VITALS: BP 114/57; PULSE 88; RESP 16; TEMP 36.8; O2SAT 93
--- NOTE | 2025-01-30 06:06 | PC.NURSE ---
pt ambulating to bathroom with steady gait.
[2025-01-30 06:27] VITALS: BP 114/57; PULSE 88; RESP 16; TEMP 36.8; O2SAT 93
== END 2025-01-30 06:27 | disposition home or self-care (01) ==
PROVIDERS: Emergency Provider Emergency Medicine
DX: R04.0 Epistaxis (principal); D64.9 Anemia, unspecified; F10.10 Alcohol abuse, uncomplicated; Y90.9 Presence of alcohol in blood, level not specified; Z87.891 Personal history of nicotine dependence; Z79.899 Other long term (current) drug therapy
CPT/HCPCS: 36415; 80053; 83690; 85025; 99283; 99284

== ENCOUNTER 2025-01-31 04:14 | Emergency (ER) | payer MEDICAID, SELFPAY ==
[2025-01-31 04:19] VITALS: BP 105/55; BP 148/78; PULSE 79; PULSE 82; RESP 18; TEMP 36.3; O2SAT 93; O2SAT 95; BMI 20.9
--- NOTE | 2025-01-31 04:43 | MHC.EDTECH ---
Patient changed over to hospital steph and pants and out of wet street clothes. 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 patient belongings into [facility] closet on shelf 1. patient resting on bed with warm blankets. patient vitals taken.
[2025-01-31 05:09] LABS: Basophils Percent Auto 0.9 % (0-2); Eosinophils Absolute Auto 0.1 X10*3/uL (0.0-0.4); Eosinophils Percent Auto 2.6 % (0-4); Hematocrit 24.1 % (42.0-52.0); Hemoglobin 8.1 g/dl (14.0-18.0); Imm Gran Abs Auto 0.01 X10*3/uL (0.00-0.03); Imm Gran Pct Auto 0.3 % (0.0-0.4); Lymphocytes Percent Auto 28.9 % (20-40); MANUAL DIFF FLAG NO; Mean Corpuscular HGB Conc 33.6 g/dl (31.0-36.0); Mean Corpuscular Hemoglobin 31.9 pg (27.0-33.0); Mean Corpuscular Volume 94.9 fL (80.0-98.0); Mean Platelet Volume 11.8 fL (9.4-12.4); Monocytes Absolute Auto 0.5 X10*3/uL (0.1-1.2); Monocytes Percent Auto 15.5 % (2-11); Neutrophils Absolute Auto 1.8 x10*3/uL (2.0-8.3); Neutrophils Percent Auto 51.8 % (45-73); Red Blood Count 2.54 X10*6/uL (4.60-5.80); Red Cell Distribution Width 15.1 % (11.0-16.0); White Blood Count 3.5 X10*3/uL (4.8-10.8)
[2025-01-31 05:13] LABS: Platelet Count 66 X10*3/uL (160-400)
[2025-01-31 05:34] LABS: Alanine Aminotransferase 7 U/L (0-40); Anion Gap 12 (12-20); Aspartate Amino Transferase 31 U/L (5-37); Bilirubin Total 0.4 mg/dL (0.0-1.0); Blood Urea Nitrogen 24 mg/dL (9-16); Calcium 8.7 mg/dL (8.4-10.2); Carbon Dioxide 16 mmol/L (22-29); Chloride 117 mmol/L (96-108); Creatinine Clr Calc Pharmacy 88.9; Estimated Glomerular Filt Rate > 60; Ethanol 145 mg/dL; Glucose Random 73 mg/dL (60-115); Lipase 32 U/L (8-78); Potassium 3.7 mmol/L (3.3-5.1); Sodium 141 mmol/L (135-145); Total Protein 7.3 g/dL (6.5-8.0)
[2025-01-31 05:40] LABS: Alkaline Phosphatase 154 U/L (39-117)
--- NOTE | 2025-01-31 07:14 | ED.GENADULT ---
HPI - General Adult General Chief complaint: ETOH/Substance Use Stated complaint: ETOH Time Seen by Provider: 01/31/25 06:47 Source: patient Mode of arrival: ambulatory Limitations: no limitations History of Present Illness ED Provider: MADISON Cee HPI narrative: 55-year-old male presents to the emergency department feeling tired and requesting food this morning. He is homeless and was sleeping on the concrete however he was cold so decided to come in. He reports because of sleeping on the concrete he is having bilateral ankle pain, lower back pain however no associated blunt trauma. He reports this has been going on for years. He does report a little alcohol. Denies fevers, chills, chest pain, shortness of breath, nausea, vomiting, abdominal pain, traumas, fall, headache, vision changes, dizziness and weakness, saddle anesthesias, urine/bowel incontinence/retnetion Related Data Previous Rx's ?Medication ?Instructions ?Recorded acetaminophen 325 mg tablet 975 mg (3 x 325 mg) PO Q6H PRN 12/17/24 Pain, Mild 1-3,Fever,Headache #30 tabs amoxicillin 875 mg-potassium 1 tab PO Q12H #10 tabs 12/17/24 clavulanate 125 mg tablet doxycycline monohydrate 100 mg 100 mg PO Q12H #10 caps 12/17/24 capsule magnesium oxide 400 mg (241.3 mg 400 mg PO DAILY #30 tabs 12/17/24 magnesium) tablet omeprazole 40 mg capsule,delayed 40 mg PO DAILY #30 caps 12/17/24 release sodium chloride 0.65 % nasal spray 1 spray intranasal Q1H PRN Dryness 12/17/24 aerosol (Deep Sea Nasal) #44 mL sucralfate 1 gram tablet (Carafate) 1 g PO BID #60 tabs 12/17/24 Allergies Allergy/AdvReac Type Severity Reaction Status Date / Time No Known Allergies Allergy Verified 01/31/25 04:23 [No Known Allergies*] Review of Systems Review of Systems: Yes all other systems are reviewed and are negative PMFSH Past Medical History Attestation statement: The following information was validated with the patient. Source: old records reviewed and nursing notes reviewed Medical History Pancytopenia Alcohol abuse Thrombocytopenia Esophageal varices Alcohol use disorder Acute on chronic anemia Alcoholic liver disease Aspiration pneumonia Thrombocytopenia Malnutrition CHF (congestive heart failure) Anemia Hypomagnesemia Cirrhosis Thrombocytopenia Acute on chronic anemia CHF (congestive heart failure) Anemia Pneumonia Alcohol abuse Alcohol withdrawal syndrome Surgical History No history of previous surgery Social History Social History Household Members: Unknown / Unable to assess Household Members Other:: pt homeless Housing: Unknown / Unable to assess Housing Other:: homeless Do you presently have visiting nurse or other home services: No Unable to assess alcohol history related to: Refusing to respond Alcohol intake: current Alcohol intake frequency: 3 or more drinks per day Alcohol type: beer and hard liquor Comment: 1 assist to bathroom Patient Tobacco Use Status: Former Tobacco user Tobacco use type: Cigarette Smoked in Last 30 Days: No Second Hand Smoke Exposure: No Advance Directives: Yes Advance Directives on File: Yes Advance Directives Date on File: 07/13/23 service: No Physical Exam ED Vital Signs: Vital Signs - 24 hr 01/31/25 04:19 Temperature 97.4 F Pulse Rate 79 Respiratory Rate 18 Blood Pressure 105/55 L Pulse Oximetry 93 Oxygen Delivery Method Room Air BMI result Body Mass Index 20.9 vss Appearance: Alert.? Oriented X3.? No acute distress.? Head: Normocephalic, atraumatic, no step-offs or deformities Eyes: Pupils equal, round and reactive to light.? Neck: Normal inspection.? Neck supple.? CVS: Normal heart rate and rhythm.? Pulses normal.? Respiratory: No respiratory distress.? Breath sounds normal.? Abdomen: Soft and nontender.? Skin: Skin warm and dry.? Normal skin color.? Normal skin turgor.? Extremities: No lower extremity edema.? No calf ttp. 5/5 strength to bilateral upper and lower extremities Back: No midline tenderness, no C-spine tenderness, full range of motion, no CVA tenderness bilaterally Neuro: Oriented X 3.? No motor deficit.? No sensory deficit. CN 2-12 intact Course Reevaluation(s) Reevaluation #1: Patient with baseline pancytopenia. Not an acute finding. Chemistry with no acute findings needing intervention. Patient's ethanol 145. Ambulating around the department. Not suicidal not homicidal. Not interested in detox. Educated patient on diagnosis and treatment plan, answered all question, patient verbalizes understanding. At this time patient will be discharged home, advised to return with new or worsening symptoms. Educated on worrisome signs and symptoms and when to return. At this time I feel comfortable discharge home. Time: 11:58 Reevaluation #2: To note patient's blood pressure is soft however this is patient's baseline. I do not suspect this is from infection. Well-appearing eating and drinking. Time: 12:01 Medical Decision Making Medical Decision Making [facility] Narrative: 55-year-old male presents for feeling tired and cold. Vague complaints of bilateral ankle pain and lower back pain ongoing for years however no associated trauma. Reports he is hungry. Also reports ethanol use Physical exam benign History and physical exam concerning for homelessness and alcohol intoxication. No signs of withdrawal. No signs of fracture, dislocation neurovascular compromise or acute threat to limb. Back pain unlikely from sleeping on the concrete, ongoing for years. No signs of cauda equina, cord compression. On my exam there is no signs of trauma to head, neck, chest, abdomen or pelvis. No focal neurological deficits. No signs of stroke, posterior stroke. No indication for imaging. Plan is for patient to be clinically sober. Not seeking detox. Not SI or HI. Differential Diagnosis Differential Diagnoses: The differential diagnosis associated with the presentation includes (History and physical exam concerning for homelessness and alcohol intoxication. No signs of withdrawal. No signs of fracture, dislocation neurovascular compromise or acute threat to limb. Back pain unlikely from sleeping on the concrete, ongoing for years. No signs of cauda equina, cord compress) Admission/Observation Consideration of admission/observation: Escalation of care including admission/observation considered Lab Data [facility] Lab Attestation statement: I reviewed the patient's lab results. 01/31/25 05:00 01/31/25 05:01 Labs: Lab Results 01/31/25 01/31/25 Range/Units 05:00 05:01 WBC 3.5 L (4.8-10.8) X10*3/uL RBC 2.54 L (4.60-5.80) X10*6/uL Hgb 8.1 L (14.0-18.0) g/dl Hct 24.1 L (42.0-52.0) % MCV 94.9 (80.0-98.0) fL MCH 31.9 (27.0-33.0) pg MCHC 33.6 (31.0-36.0) g/dl RDW 15.1 (11.0-16.0) % Plt Count 66 L (160-400) X10*3/uL MPV 11.8 (9.4-12.4) fL Immature Gran % (Auto) 0.3 (0.0-0.4) % Neut % (Auto) 51.8 (45-73) % Lymph % (Auto) 28.9 (20-40) % [place] % (Auto) 15.5 H (2-11) % Eos % (Auto) 2.6 (0-4) % Baso % (Auto) 0.9 (0-2) % Lymph # (Auto) 1.0 L (1.2-4.9) X10*3/uL [place] # (Auto) 0.5 (0.1-1.2) X10*3/uL Eos # (Auto) 0.1 (0.0-0.4) X10*3/uL Baso # (Auto) 0.0 (0.0-0.2) X10*3/uL Abs Immat Gran (auto) 0.01 (0.00-0.03) X10*3/uL Absolute Neuts (auto) 1.8 L (2.0-8.3) x10*3/uL Absolute Nucleated RBC 0.000 (0.0-0.012) X10*3/uL Nucleated RBC % (auto) 0.0 (0.0-0.2) /100WBC Sodium 141 (135-145) mmol/L Potassium 3.7 (3.3-5.1) mmol/L Chloride 117 H (96-108) mmol/L Carbon Dioxide 16 L (22-29) mmol/L Anion Gap 12 (12-20) BUN 24 H (9-16) mg/dL Creatinine 0.77 (0.5-1.4) mg/dL Estim Creat Clear Calc 88.9 Estimated GFR > 60 Random Glucose 73 (60-115) mg/dL Calcium 8.7 (8.4-10.2) mg/dL Total Bilirubin 0.4 (0.0-1.0) mg/dL AST 31 (5-37) U/L ALT 7 (0-40) U/L Alkaline Phosphatase 154 H (39-117) U/L Total Protein 7.3 (6.5-8.0) g/dL Albumin 3.0 L (3.5-5.0) g/dL Lipase 32 (8-78) U/L Ethyl Alcohol 145 mg/dL External Record Review External record reviewed: Inpatient record, Office record, Outpatient record, Prior outpatient labs, Prior outpatient radiology, Primary care record and Outside ED record Chronic Conditions Patient?s care impacted by: Other Critical Care Time Critical Care Time Critical Care Time: No Discharge Plan Discharge Clinical Impression: Alcohol abuse, Alcoholic intoxication Patient Disposition: Home, Self-Care Instructions: Abuse of Alcohol (DC), Alcohol Intoxication (ED) Additional Instructions: Take your medications as prescribed. If you were prescribed antibiotics today, it is important that you take your medication to their entirety, do not skip any doses, do not finish them early. Follow-up with your primary care provider this week. Return to the emergency department with new or worsening symptoms. Such as fevers, chills, chest pain, shortness of breath, nausea, vomiting, dizziness, headache, vision changes, lethargy In case of emergency call 911 Prescriptions: No Action doxycycline monohydrate 100 mg Capsule 100 mg PO Q12H Qty: 10 0RF omeprazole 40 mg capsule,delayed release(DR/EC) 40 mg PO DAILY Qty: 30 0RF sucralfate [Carafate] 1 gram tablet 1 g PO BID Qty: 60 0RF acetaminophen 325 mg Tablet 975 mg PO Q6H PRN (Reason: Pain, Mild 1-3,Fever,Headache) Qty: 30 0RF magnesium oxide 400 mg (241.3 mg magnesium) Tablet 400 mg PO DAILY Qty: 30 0RF amoxicillin-pot clavulanate 875-125 mg Tablet 1 tab PO Q12H Qty: 10 0RF Deep Sea Nasal 0.65 % Aerosol,[place] 1 spray intranasal Q1H PRN (Reason: Dryness) Qty: 44 0RF Referrals: [facility] [Primary Care Provider] - 2 days Print Language: Palestinian
[2025-01-31 12:56] VITALS: BP 126/58; PULSE 97; RESP 16; TEMP 36.2; O2SAT 92
== END 2025-01-31 12:59 | disposition home or self-care (01) ==
PROVIDERS: Emergency Provider Emergency Medicine
DX: F10.129 Alcohol abuse with intoxication, unspecified (principal); Y90.6 Blood alcohol level of 120-199 mg/100 ml; M25.572 Pain in left ankle and joints of left foot; M25.571 Pain in right ankle and joints of right foot; M54.50 Low back pain, unspecified; Z59.00 Homelessness unspecified; Z51.81 Encounter for therapeutic drug level monitoring
CPT/HCPCS: 36415; 80053; 80307; 83690; 85025; 99283; 99284

== ENCOUNTER 2025-01-31 19:12 | Inpatient (IN) | payer MEDICAID, SELFPAY ==
--- NOTE | ~2025-01-31 | CT_ITS ---
CLINICAL HISTORY: hypoxia, dyspnea CT CHEST WITHOUT CONTRAST COMPARISON: 11/29/2024. FINDINGS: Lack of IV contrast lowers the sensitivity of the exam. Examination is also mildly motion limited. No evidence of a pneumothorax or pneumomediastinum. Atelectatic changes are located within the bilateral mid and lower lungs, [id number]. No consolidation. No pleural effusion. No adenopathy. Esophagus is significantly underdistended which precludes accurate assessment. Confluent densities in the lower mediastinum correspond to varices adjacent to the distal esophagus, when correlated with the prior study. Upper abdominal varices are also noted. Mildly cirrhotic liver morphology is noted. Cholelithiasis is noted on axial image 161. Thickening of the left adrenal gland is noted. Bone windows demonstrate no acute abnormalities. Chronic compression fracture is again noted involving the T8 vertebral body level, with associated severe loss of height anteriorly. Old healed fracture of the sternum is noted. Healing or healed fractures are noted involving the left fifth and sixth ribs. IMPRESSION: 1. Atelectatic changes in the bilateral mid and lower lungs, [id number]. No consolidation or pleural effusion. No pneumothorax. 2. Varices are noted adjacent to the distal esophagus, better appreciated on the prior study. 3. Cholelithiasis. 4. Additional findings are detailed above. This document has been electronically signed by: Lex Yarbrough M.D. on 02/01/2025 04:57:29
--- NOTE | ~2025-01-31 | XR_ITS ---
CLINICAL HISTORY: o2 desaturation 1 view chest x-ray Comparison: CR - XR CHEST 1V - 12/10/24 22:28 EST Findings: Pulmonary edema. No large effusion or pneumothorax. Cardiomegaly. No acute fracture. IMPRESSION: 1. Pulmonary edema. 2. Cardiomegaly. This document has been electronically signed by: Lucy Rapp MD on 01/31/2025 23:15:28
--- NOTE | 2025-01-31 19:25 | MHC.EDTECH ---
patient BIBA changed into warm hospital clothing. belongings in [facility] shelf 2
[2025-01-31 19:33] VITALS: BP 121/64; BP 132/84; PULSE 75; PULSE 86; RESP 16; TEMP 36.6; O2SAT 88; O2SAT 97; BMI 22.1
--- NOTE | 2025-01-31 19:35 | PC.NURSE ---
pt hypoxic on RA down to 85% put on 2L nc O2 improved to 94%
--- NOTE | 2025-01-31 22:16 | PC.NURSE ---
PT hypoxic again when taken on off o2-. provider notified. chest xray ordered
[2025-01-31 23:08] VITALS: BP 102/56; PULSE 88; RESP 14; TEMP 37.1; O2SAT 93
[2025-01-31 23:10] LABS: Influenza A PCR NEGATIVE (Negative); Influenza B PCR NEGATIVE (Negative); Resp Syncy Virus RNA Qual PCR NEGATIVE (Negative); SARS COV2 PCR INHOUSE NEGATIVE (Negative)
--- NOTE | 2025-01-31 23:26 | ED_ITS ---
HPI - General Adult General Chief complaint: ETOH/Substance Use Stated complaint: etoh, L aide chest pain Time Seen by Provider: 01/31/25 20:33 Source: patient and EMS Mode of arrival: EMS Limitations: no limitations and other History of Present Illness ED Provider: Dr. Alexandria Sweeney HPI narrative: Patient comes to the emergency room complaining alcohol intoxication. Patient was discharged earlier ED. he admits that he has been drinking alcohol. Complaints of left shoulder pain, denies any other injuries. Patient was found by EMS to be 88% on room air. Patient was placed on 2 L of nasal cannula. Patient is too intoxicated to give any history, denies any injuries, denies any pain. Related Data Previous Rx's ?Medication ?Instructions ?Recorded acetaminophen 325 mg tablet 975 mg (3 x 325 mg) PO Q6H PRN 12/17/24 Pain, Mild 1-3,Fever,Headache #30 tabs amoxicillin 875 mg-potassium 1 tab PO Q12H #10 tabs 12/17/24 clavulanate 125 mg tablet doxycycline monohydrate 100 mg 100 mg PO Q12H #10 caps 12/17/24 capsule magnesium oxide 400 mg (241.3 mg 400 mg PO DAILY #30 tabs 12/17/24 magnesium) tablet omeprazole 40 mg capsule,delayed 40 mg PO DAILY #30 caps 12/17/24 release sodium chloride 0.65 % nasal spray 1 spray intranasal Q1H PRN Dryness 12/17/24 aerosol (Deep Sea Nasal) #44 mL sucralfate 1 gram tablet (Carafate) 1 g PO BID #60 tabs 12/17/24 Allergies Allergy/AdvReac Type Severity Reaction Status Date / Time No Known Allergies Allergy Verified 01/31/25 19:53 [No Known Allergies*] Review of Systems 2 Review of Systems: Constitutional : No Weight loss, No Fever, No Chills, No Night Sweats, No Fatigue, No Malaise ENT/Mouth : No Hearing loss, No Ear Pain, No Nasal Congestion, No Sinus Pain, No Hoarseness, No sore throat, No Rhinorrhea, No Swallowing Difficulty Eyes: No Eye Pain, No Swelling, No Redness, No Foreign Body, No Discharge, No Vision Changes Cardiovascular : No Chest Pain, No SOB, No Dyspnea on Exertion, No Orthopnea, No Edema, No Palpitations Respiratory : No Cough, No Sputum, No Wheezing, No Smoke Exposure, No Dyspnea Gastrointestinal : No Nausea, No Vomiting, No Diarrhea, No Constipation, No abdominal Pain, No Hematochezia, No Melena Genitourinary : no irregular bleeding, No Dysuria, No Urinary Frequency, No Hematuria, No Urinary Incontinence, No Urgency, No Flank Pain, No Urinary Flow Changes, No Hesitancy Musculoskeletal : No joint pain, No Myalgias, No Joint Swelling Skin : No Skin Lesions, No rash Neuro : No Weakness, No Numbness, No Paresthesias, No Loss of Consciousness, No Dizziness, No Headache Psych : No Anxiety/Panic, No Depression, No SI/HI/AH/VH, admits to alcohol Heme/Lymph: No Bruising, No Bleeding,No Lymphadenopathy Endocrine : No Polyuria, No Polydipsia, No Temperature Intolerance FOR[facility]LY [facility] Past Medical History Medical History Pancytopenia Alcohol abuse Thrombocytopenia Esophageal varices Alcohol use disorder Acute on chronic anemia Alcoholic liver disease Aspiration pneumonia Thrombocytopenia Malnutrition CHF (congestive heart failure) Anemia Hypomagnesemia Cirrhosis Thrombocytopenia Acute on chronic anemia CHF (congestive heart failure) Anemia Pneumonia Alcohol abuse Alcohol withdrawal syndrome Surgical History No history of previous surgery Social History Social History Household Members: Unknown / Unable to assess Household Members Other:: pt homeless Housing: Unknown / Unable to assess Housing Other:: homeless Do you presently have visiting nurse or other home services: No Unable to assess alcohol history related to: Refusing to respond Alcohol intake: current Alcohol intake frequency: 3 or more drinks per day Alcohol type: beer and hard liquor Comment: 1 assist to bathroom Patient Tobacco Use Status: Former Tobacco user Tobacco use type: Cigarette Second Hand Smoke Exposure: No Use of substances other than those prescribed or required for medical reasons: No Advance Directives: Yes Advance Directives on File: Yes Advance Directives Date on File: 07/03/23 Do you have a plan to hurt others: No Plan service: No Physical Exam ED Vital Signs: Vital Signs - 24 hr 01/31/25 19:33 01/31/25 23:08 02/01/25 00:25 Temperature 97.8 F 98.7 F Pulse Rate 75 88 Respiratory Rate 16 14 Blood Pressure 121/64 102/56 L Pulse Oximetry 88 L 93 85 L Oxygen Delivery Method Room Air Room Air Room Air BMI result Body Mass Index 22.1 Const Other: Appearance: Alert. Oriented X3. No acute distress, intoxicated Eyes: Pupils equal, round and reactive to light. ENT: Pharynx normal. Neck: Normal inspection. Neck supple. No lymph nodes noted. No crepitus CVS: Normal heart rate and rhythm. Pulses normal. Normal S1 and S2 Respiratory: No respiratory distress. Breath sounds normal. No Wheezing. No rales Abdomen: Soft and nontender. No rigidity. No distention. Skin: Skin warm and dry. Normal skin color. Normal skin turgor. Extremities: No lower extremity edema. No Lacerations. No Rash Neuro: Oriented X 3. No motor deficit. No sensory deficit. Moving all extremities. No slurred speech. CN 2 through 12 grossly intact Psych: calm, cooperative my intoxicated Course Course Course Narrative: Patient denies any injuries. It was noted that when patient sleeps, his oxygen drops to 88%. Possible sleep apnea versus viral syndrome versus CHF? Earlier today patient had blood work done. We will repeat blood work, viral panel and chest x-ray. Medical Decision Making Medical Decision Making MDM Narrative: My interpretation of labs: Patient's hematology shows a hemoglobin of 7.5, patient is chronically anemic however he usually runs between 8.1 and 8.6. Patient denies any recent vomiting, denies diarrhea. Patient states that for the last few days he has been seen brown stool. Patient declined rectal exam Patient's chemistry is unchanged from chemistry today. BNP is 205. Chest x-ray shows pulmonary edema, cardiomegaly It was noted that when patient is awake sitting, his oxygen saturation drops to 85% on room air. Patient's BNP is 205, normal more troponin At this time, patient is too intoxicated to ambulate. However, patient's O2 saturation dropped to 85% just from sitting there. Patient denies any recent URI symptoms including coughing, sneezing fever or chills. Patient received a dose of Lasix. On 2 L, oxygen saturation in the mid 90s I discussed the patient with Dr. Hogan from the Medicine team, at this time, we will not transfused. Patient will be admitted. Differential Diagnosis Differential Diagnoses: The differential diagnosis associated with the presentation includes (Pneumonia, CHF) Admission/Observation Consideration of admission/observation: Escalation of care including admission/observation considered Consult Healthcare Provider Management of the patient was discussed with: Hospitalist Lab Data MDM Lab Attestation statement: I reviewed the patient's lab results. 01/31/25 23:43 01/31/25 23:43 Labs: Lab Results 01/31/25 01/31/25 Range/Units 22:30 23:43 WBC 3.3 L (4.8-10.8) X10*3/uL RBC 2.42 L (4.60-5.80) X10*6/uL Hgb 7.5 L (14.0-18.0) g/dl Hct 22.8 L (42.0-52.0) % MCV 94.2 (80.0-98.0) fL MCH 31.0 (27.0-33.0) pg MCHC 32.9 (31.0-36.0) g/dl RDW 14.6 (11.0-16.0) % Plt Count 57 L (160-400) X10*3/uL MPV 11.0 (9.4-12.4) fL Immature Gran % (Auto) 0.3 (0.0-0.4) % Neut % (Auto) 48.7 (45-73) % Lymph % (Auto) 35.3 (20-40) % [place] % (Auto) 12.1 H (2-11) % Eos % (Auto) 2.7 (0-4) % Baso % (Auto) 0.9 (0-2) % Lymph # (Auto) 1.2 (1.2-4.9) X10*3/uL [place] # (Auto) 0.4 (0.1-1.2) X10*3/uL Eos # (Auto) 0.1 (0.0-0.4) X10*3/uL Baso # (Auto) 0.0 (0.0-0.2) X10*3/uL Abs Immat Gran (auto) 0.01 (0.00-0.03) X10*3/uL Absolute Neuts (auto) 1.6 L (2.0-8.3) x10*3/uL Absolute Nucleated RBC 0.000 (0.0-0.012) X10*3/uL Nucleated RBC % (auto) 0.0 (0.0-0.2) /100WBC Sodium 140 (135-145) mmol/L Potassium 3.6 (3.3-5.1) mmol/L Chloride 118 H (96-108) mmol/L Carbon Dioxide 15 L (22-29) mmol/L Anion Gap 11 L (12-20) BUN 19 H (9-16) mg/dL Creatinine 0.72 (0.5-1.4) mg/dL Estim Creat Clear Calc 100.6 Estimated GFR > 60 Random Glucose 79 (60-115) mg/dL Calcium 8.4 (8.4-10.2) mg/dL Total Bilirubin 0.4 (0.0-1.0) mg/dL Direct Bilirubin 0.2 (0.0-0.5) mg/dL AST 30 (5-37) U/L ALT 7 (0-40) U/L Alkaline Phosphatase 85 (39-117) U/L Troponin I High Sens 3.7 (<3.5-35.0) ng/L B-Natriuretic Peptide 205 H (<100) pg/mL Total Protein 7.0 (6.5-8.0) g/dL Albumin 2.9 L (3.5-5.0) g/dL Influenza Type A (PCR) NEGATIVE (Negative) Influenza Type B (PCR) NEGATIVE (Negative) RSV RNA Qual (PCR) NEGATIVE (Negative) SARS-CoV-2 RNA (RT-PCR) NEGATIVE (Negative) Independent Interpretation I performed an independent interpretation of an: Plain X-Ray Radiology Impression Discussion of test interpretation with radiology: I have reviewed the radiologist's reading. Radiologist Impression: Pulmonary edema. No large effusion or pneumothorax. Cardiomegaly. No acute fracture. IMPRESSION: 1. Pulmonary edema. 2. Cardiomegaly. Independent Historian Clinical information obtained from an independent historian. History obtained from or confirmed by: EMS Discharge Plan Discharge Clinical Impression: CHF exacerbation, Alcohol intoxication Patient Disposition: Admitted As Inpatient Prescriptions: No Action doxycycline monohydrate 100 mg Capsule 100 mg PO Q12H Qty: 10 0RF omeprazole 40 mg capsule,delayed release(DR/EC) 40 mg PO DAILY Qty: 30 0RF sucralfate [Carafate] 1 gram tablet 1 g PO BID Qty: 60 0RF acetaminophen 325 mg Tablet 975 mg PO Q6H PRN (Reason: Pain, Mild 1-3,Fever,Headache) Qty: 30 0RF magnesium oxide 400 mg (241.3 mg magnesium) Tablet 400 mg PO DAILY Qty: 30 0RF amoxicillin-pot clavulanate 875-125 mg Tablet 1 tab PO Q12H Qty: 10 0RF Deep Sea Nasal 0.65 % Aerosol,[place] 1 spray intranasal Q1H PRN (Reason: Dryness) Qty: 44 0RF Print Language: Moldovan
[2025-01-31 23:53] LABS: MANUAL DIFF FLAG NO
[2025-01-31 23:55] LABS: Basophils Percent Auto 0.9 % (0-2); Eosinophils Absolute Auto 0.1 X10*3/uL (0.0-0.4); Eosinophils Percent Auto 2.7 % (0-4); Hematocrit 22.8 % (42.0-52.0); Hemoglobin 7.5 g/dl (14.0-18.0); Imm Gran Abs Auto 0.01 X10*3/uL (0.00-0.03); Imm Gran Pct Auto 0.3 % (0.0-0.4); Lymphocytes Absolute Auto 1.2 X10*3/uL (1.2-4.9); Lymphocytes Percent Auto 35.3 % (20-40); Mean Corpuscular HGB Conc 32.9 g/dl (31.0-36.0); Mean Corpuscular Volume 94.2 fL (80.0-98.0); Monocytes Absolute Auto 0.4 X10*3/uL (0.1-1.2); Monocytes Percent Auto 12.1 % (2-11); Neutrophils Absolute Auto 1.6 x10*3/uL (2.0-8.3); Neutrophils Percent Auto 48.7 % (45-73); Red Blood Count 2.42 X10*6/uL (4.60-5.80); Red Cell Distribution Width 14.6 % (11.0-16.0); White Blood Count 3.3 X10*3/uL (4.8-10.8)
[2025-02-01] VITALS (9 sets, daily range): BP systolic 93–106; BP diastolic 48–57; PULSE 77–86; RESP 14–20; TEMP 36.7–37.6; O2SAT 85–98
[2025-02-01] LABS: Platelet Count 57 X10*3/uL (160-400)
[2025-02-01 00:11] LABS: Alanine Aminotransferase 7 U/L (0-40); Albumin Level 2.9 g/dL (3.5-5.0); Alkaline Phosphatase 85 U/L (39-117); Anion Gap 11 (12-20); Aspartate Amino Transferase 30 U/L (5-37); Bilirubin Direct 0.2 mg/dL (0.0-0.5); Bilirubin Total 0.4 mg/dL (0.0-1.0); Blood Urea Nitrogen 19 mg/dL (9-16); Calcium 8.4 mg/dL (8.4-10.2); Carbon Dioxide 15 mmol/L (22-29); Chloride 118 mmol/L (96-108); Creatinine Clr Calc Pharmacy 100.6; Estimated Glomerular Filt Rate > 60; Glucose Random 79 mg/dL (60-115); Potassium 3.6 mmol/L (3.3-5.1); Sodium 140 mmol/L (135-145)
[2025-02-01 00:16] LABS: B Type Natriuretic Peptide 205 pg/mL (<100)
[2025-02-01 00:18] LABS: Troponin-I High Sensitivity 3.7 ng/L (<3.5-35.0)
--- NOTE | 2025-02-01 00:43 | ECG_ITS ---
Test Reason : CHF Blood Pressure : */* mmHG Vent. Rate : 81 BPM Atrial Rate : 81 BPM P-R Int : 148 ms QRS Dur : 82 ms QT Int : 430 ms P-R-T Axes : 52 27 30 degrees QTcB Int : 499 ms Normal sinus rhythm Prolonged QT Abnormal ECG When compared with ECG of 21-Oct-2024 05:30, Nonspecific T wave abnormality no longer evident in Anterior leads Referred By: Alexandria Sweeney Electronically Signed By: Brayan Negron
[2025-02-01] MEDS: Furosemide 20 MG/2 ML VIAL IVPUSH (01:06)
--- NOTE | 2025-02-01 01:06 | PC.NURSE ---
provider aware of pt bp prior to furosemide admin. ok with administering
[2025-02-01] MEDS: PHENobarbitaL sodium 130 MG/ML IM ONCE 248 MG IM (03:40)
--- NOTE | 2025-02-01 06:14 | P.HPHOSP_ITS ---
History of Present Illness Date of Service: 02/01/25 Chief Complaint: Alcohol use This is a 55-year-old male with pertinent history of alcohol use disorder with alcoholic cirrhosis, gastroesophageal reflux disease who presented to the emergency department after alcohol intoxication. Patient was discharged from the ER 1 day prior to presentation but reports he was not able to find the [facility]. He was found at a liquor store and admits to drinking alcohol. Patient denies any complaints in the time of my evaluation. He appears intoxicated and not willing to participate in conversation or follow commands. He denied dyspnea, orthopnea or PND. No cough. Patient was found to be satting low and placed on supplemental oxygen in the ER. CT scan with atelectasis. Patient does not know his home medications. Review of Systems 2 Constitutional: Constitutional: Reports fatigue and Reports malaise Cardiovascular: Cardiovascular: Reports no additional cardiovascular complaints Respiratory: Respiratory: Reports no additional respiratory complaints Gastrointestinal: Gastrointestinal: Reports no additional gastrointestinal complaints Genitourinary: Genitourinary: Reports no additional male genitourinary complaints Endocrine: Endocrine: Reports fatigue [facility] Medical History Pancytopenia Alcohol abuse Thrombocytopenia Esophageal varices Alcohol use disorder Acute on chronic anemia Alcoholic liver disease Aspiration pneumonia Thrombocytopenia Malnutrition CHF (congestive heart failure) Anemia Hypomagnesemia Cirrhosis Thrombocytopenia Acute on chronic anemia CHF (congestive heart failure) Anemia Pneumonia Alcohol abuse Alcohol withdrawal syndrome Surgical History No history of previous surgery Social History Household Members: Unknown / Unable to assess Household Members Other:: pt homeless Housing: Unknown / Unable to assess Housing Other:: homeless Do you presently have visiting nurse or other home services: No Unable to assess alcohol history related to: Refusing to respond Alcohol intake: current Alcohol intake frequency: 3 or more drinks per day Alcohol type: beer and hard liquor Comment: 1 assist to bathroom Patient Tobacco Use Status: Former Tobacco user Tobacco use type: Cigarette Second Hand Smoke Exposure: No Use of substances other than those prescribed or required for medical reasons: No Advance Directives: Yes Advance Directives on File: Yes Advance Directives Date on File: 07/03/23 Do you have a plan to hurt others: No Plan service: No Meds Allergies Allergy/AdvReac Type Severity Reaction Status Date / Time No Known Allergies Allergy Verified 01/31/25 19:53 [No Known Allergies*] Active Medications: Current Medications Pharmacy Consult (Consult Rx Etoh Phenob Im/Po) 1 each MISCELLANE ONCE PRN; Protocol PRN Reason: Consult order Phenobarbital (Phenobarbital 15 Mg Tablet) 45 mg PO BID JOSE MANUEL Stop: 02/03/25 09:01 Phenobarbital (Phenobarbital 15 Mg Tablet) 15 mg PO BID JOSE MANUEL Stop: 02/05/25 09:01 Phenobarbital (Phenobarbital 15 Mg Tablet) 15 mg PO DAILY JOSE MANUEL Stop: 02/07/25 09:01 Phenobarbital Sodium (Phenobarbital Sodium 130 Mg/Ml Vial Im Q3hx2) 186 mg IM Q3H JOSE MANUEL Stop: 02/01/25 09:01 Physical Exam 2 Vital Signs and Narrative: Vital Signs: Last Vital Signs Temp 98.6 F 02/01/25 03:42 Pulse 83 02/01/25 03:42 Resp 14 02/01/25 03:42 BP 97/48 L 02/01/25 03:42 Pulse Ox 94 02/01/25 03:42 O2 Del Method Nasal Cannula 02/01/25 03:42 O2 Flow Rate 2 02/01/25 03:42 BMI result Body Mass Index 22.1 Middle-aged male lying in bed on supplemental O2 Neck supple, no JVD Regular rate and rhythm, S1-S2 heard Regular breath sounds bilaterally, no wheezing or crackles appreciated Abdomen nontender, no guarding, no rigidity Patient is somnolent but awakens to verbal stimulus, answers questions appropriately, follows commands Psych: Lethargic No pedal edema Results Labs 01/31/25 23:43 01/31/25 23:43 Labs: Laboratory Results - last 24 hr 01/31/25 01/31/25 22:30 23:43 MCV 94.2 MCH 31.0 MCHC 32.9 RDW 14.6 Plt Count 57 L MPV 11.0 Immature Gran % (Auto) 0.3 Neut % (Auto) 48.7 Lymph % (Auto) 35.3 [place] % (Auto) 12.1 H Eos % (Auto) 2.7 Baso % (Auto) 0.9 Lymph # (Auto) 1.2 [place] # (Auto) 0.4 Eos # (Auto) 0.1 Baso # (Auto) 0.0 Abs Immat Gran (auto) 0.01 Absolute Neuts (auto) 1.6 L Absolute Nucleated RBC 0.000 Nucleated RBC % (auto) 0.0 Anion Gap 11 L Estim Creat Clear Calc 100.6 Estimated GFR > 60 Random Glucose 79 Calcium 8.4 Total Bilirubin 0.4 Direct Bilirubin 0.2 AST 30 ALT 7 Alkaline Phosphatase 85 B-Natriuretic Peptide 205 H Total Protein 7.0 Albumin 2.9 L Influenza Type A (PCR) NEGATIVE Influenza Type B (PCR) NEGATIVE RSV RNA Qual (PCR) NEGATIVE SARS-CoV-2 RNA (RT-PCR) NEGATIVE Assessment and Plan (1) Alcohol intoxication: Status: Acute Plan This is a 55-year-old male with pertinent history of alcohol use disorder with alcoholic cirrhosis, gastroesophageal reflux disease who presented to the emergency department after alcohol intoxication. #. Alcohol use disorder with concerns for withdrawal. Phenobarb protocol initiated in the ER. Monitor CIWA. Initiating thiamine and folic acid. Consulted Addiction Team #. Acute hypoxemic respiratory failure due to hypoventilation in the setting of decreased mentation and atelectasis. Wean supplemental O2 as tolerated. Incentive spirometry every 8 hours. Patient without cough, orthopnea or PND. #. Pancytopenia: Due to splenomegaly in the setting of cirrhosis and alcoholism. #. Alcoholic cirrhosis: ?not on diuretics or lactulose. Optimize once med rec is complete Med rec pending DVT prophylaxis: Mechanical Full code Admit as inpatient and will require two night minimum hospital stay for management of alcohol withdrawal (as above), which is not possible in a lesser acute setting. Quality Stroke Does the patient have a stroke diagnosis?: No VTE Prior VTE?: No VTE Risk Level:: Medical - moderate - high VTE Device Contraindication: Treatment Not Indicated VTE Drug Contraindication: N/A - Med Ordered
[2025-02-01] MEDS: PHENobarbitaL sodium 130 MG/ML VIAL IM Q3Hx2 186 MG IM ×2 (06:41→09:28)
[2025-02-01 06:46] LABS: MANUAL DIFF FLAG NO
[2025-02-01 06:48] LABS: Eosinophils Absolute Auto 0.1 X10*3/uL (0.0-0.4); Eosinophils Percent Auto 2.7 % (0-4); Hematocrit 24.7 % (42.0-52.0); Hemoglobin 8.3 g/dl (14.0-18.0); Imm Gran Abs Auto 0.01 X10*3/uL (0.00-0.03); Imm Gran Pct Auto 0.3 % (0.0-0.4); Lymphocytes Percent Auto 32.3 % (20-40); Mean Corpuscular HGB Conc 33.6 g/dl (31.0-36.0); Mean Corpuscular Hemoglobin 31.6 pg (27.0-33.0); Mean Corpuscular Volume 93.9 fL (80.0-98.0); Mean Platelet Volume 11.7 fL (9.4-12.4); Monocytes Absolute Auto 0.4 X10*3/uL (0.1-1.2); Neutrophils Absolute Auto 1.4 x10*3/uL (2.0-8.3); Neutrophils Percent Auto 48.7 % (45-73); Red Blood Count 2.63 X10*6/uL (4.60-5.80); Red Cell Distribution Width 14.7 % (11.0-16.0); White Blood Count 2.9 X10*3/uL (4.8-10.8)
[2025-02-01 06:49] LABS: Platelet Count 66 X10*3/uL (160-400)
[2025-02-01 07:05] LABS: Anion Gap 11 (12-20); Blood Urea Nitrogen 18 mg/dL (9-16); Calcium 8.8 mg/dL (8.4-10.2); Carbon Dioxide 20 mmol/L (22-29); Chloride 114 mmol/L (96-108); Creatinine Clr Calc Pharmacy 95.3; Estimated Glomerular Filt Rate > 60; Glucose Random 88 mg/dL (60-115); Potassium 3.6 mmol/L (3.3-5.1); Sodium 141 mmol/L (135-145)
[2025-02-01] MEDS: 0.9 % Sodium Chloride Flush 3 ML SYRINGE IVFLUSH (07:09)
[2025-02-01] MEDS: Thiamine HCL 200 MG in 0.9 % Sodium Chloride 100 ML 204 MG IV (07:10)
--- NOTE | 2025-02-01 07:46 | PHA.MEDREC ---
Pharmacy Consult ? Medication Reconciliation Pharmacy has completed the medication reconciliation. Pt does not know home medications. Per claim history, pt only recently filled lactulose. However, recent discharge from 12/17/24 showed RX for tylenol, magnesium, omeprazole, saline nasal spray, and carafate. Utilized discharge packet and claim history to confirm meds.
[2025-02-01] MEDS: Albumin Human 25 % 100 ML IV ×3 (08:08→19:35)
[2025-02-01] MEDS: 0.9 % Sodium Chloride 1,000 ML 125 ML IVCONT ×2 (08:08→18:17)
[2025-02-01] MEDS: Thiamine HCL 100 MG TABLET PO (09:28)
[2025-02-01] MEDS: Folic Acid 1 MG TABLET PO (09:28)
--- NOTE | 2025-02-01 10:29 | MHC.RECOVRN ---
Received Addiction Medicine consult for alcohol use disorder. Pt declined to meet with [facility]. T/w available if needed or if pt changes his mind and would like to speak with addiction/recovery.
--- NOTE | 2025-02-01 13:00 | PM.EVENT ---
Event Note Date of Service: 02/01/25 Event Note: seen and evaluated still altered and lethargic started on Albumin and IVF for low BP CIWA Phenobarb protocol check Ammonia level Start Lactulose Time Spent With Patient Time: Total time managing care of this patient today ____ minutes.
[2025-02-01] MEDS: Omeprazole 40 MG CAPSULE.DR PO (13:58)
[2025-02-01] MEDS: Lactulose 20 GM/30 ML SOLUTION PO ×2 (14:05→20:44)
[2025-02-01 14:27] LABS: Ammonia 79 umol/L (13-55)
[2025-02-01] MEDS: PHENobarbitaL 15 MG TABLET 45 MG PO (20:43)
[2025-02-01] MEDS: Sucralfate 1 GM TABLET PO (20:43)
[2025-02-02] VITALS (8 sets, daily range): BP systolic 103–114; BP diastolic 43–60; PULSE 88–95; RESP 18–23; TEMP 36.6–37.1; O2SAT 91–95
[2025-02-02] MEDS: 0.9 % Sodium Chloride 1,000 ML 125 ML IVCONT (00:34)
[2025-02-02] MEDS: Albumin Human 25 % 100 ML IV (01:45)
[2025-02-02 05:25] LABS: MANUAL DIFF FLAG NO
[2025-02-02 05:26] LABS: Basophils Percent Auto 0.3 % (0-2); Eosinophils Absolute Auto 0.1 X10*3/uL (0.0-0.4); Eosinophils Percent Auto 1.8 % (0-4); Hematocrit 22.9 % (42.0-52.0); Hemoglobin 7.7 g/dl (14.0-18.0); Imm Gran Abs Auto 0.01 X10*3/uL (0.00-0.03); Imm Gran Pct Auto 0.3 % (0.0-0.4); Lymphocytes Absolute Auto 0.7 X10*3/uL (1.2-4.9); Mean Corpuscular HGB Conc 33.6 g/dl (31.0-36.0); Mean Corpuscular Hemoglobin 31.6 pg (27.0-33.0); Mean Corpuscular Volume 93.9 fL (80.0-98.0); Mean Platelet Volume 11.9 fL (9.4-12.4); Monocytes Absolute Auto 0.5 X10*3/uL (0.1-1.2); Monocytes Percent Auto 14.5 % (2-11); Neutrophils Absolute Auto 2.1 x10*3/uL (2.0-8.3); Neutrophils Percent Auto 63.1 % (45-73); Red Blood Count 2.44 X10*6/uL (4.60-5.80); Red Cell Distribution Width 14.5 % (11.0-16.0); White Blood Count 3.3 X10*3/uL (4.8-10.8)
[2025-02-02 05:28] LABS: Platelet Count 51 X10*3/uL (160-400)
[2025-02-02 05:32] LABS: Ammonia 80 umol/L (13-55)
[2025-02-02 05:39] LABS: Anion Gap 9 (12-20); Blood Urea Nitrogen 12 mg/dL (9-16); Calcium 8.8 mg/dL (8.4-10.2); Carbon Dioxide 18 mmol/L (22-29); Chloride 115 mmol/L (96-108); Creatinine Clr Calc Pharmacy 106.5; Estimated Glomerular Filt Rate > 60; Glucose Random 102 mg/dL (60-115); Sodium 138 mmol/L (135-145)
[2025-02-02 05:44] LABS: Alanine Aminotransferase 7 U/L (0-40); Albumin Level 3.4 g/dL (3.5-5.0); Aspartate Amino Transferase 28 U/L (5-37); Bilirubin Direct 0.2 mg/dL (0.0-0.5); Bilirubin Total 0.7 mg/dL (0.0-1.0); Total Protein 6.9 g/dL (6.5-8.0)
[2025-02-02 05:54] LABS: Alkaline Phosphatase 77 U/L (39-117)
[2025-02-02] MEDS: Omeprazole 40 MG CAPSULE.DR PO (06:23)
[2025-02-02] MEDS: Lactulose 20 GM/30 ML SOLUTION 30 GM PO ×3 (08:34→21:18)
[2025-02-02] MEDS: Sucralfate 1 GM TABLET PO ×2 (08:35→21:18)
[2025-02-02] MEDS: Folic Acid 1 MG TABLET PO (08:35)
[2025-02-02] MEDS: Magnesium Oxide 400 MG TABLET PO (08:35)
[2025-02-02] MEDS: PHENobarbitaL 15 MG TABLET 45 MG PO ×2 (08:35→21:18)
[2025-02-02] MEDS: Thiamine HCL 100 MG TABLET PO (08:35)
[2025-02-02] MEDS: 0.9 % Sodium Chloride 1,000 ML 75 ML IVCONT (08:39)
--- NOTE | 2025-02-02 08:43 | PC.NURSE ---
Alert and oriented, denies pain or discomfort. VSS, ate well for breakfast, Medicated per mar
--- NOTE | 2025-02-02 11:07 | PC.NURSE ---
Report received from LAURA Duffy. Taken over care at this time.
--- NOTE | 2025-02-02 11:48 | PC.NURSE ---
Pt. ambulated to bedside commode, informed pt. on plan of care. All questions answered. Pt. educated to keep on monitor items for safety reasons. Pt. appears agitated when informing him on this information. Pt. awaiting for bed assignment on this time. No c/o pain or distress noted.
--- NOTE | 2025-02-02 12:06 | P.PNIM_ITS ---
Subjective Subjective Date of Service: 02/02/25 Interval History: seen and evaluated more alert and interactive Ammonia still elevated having bowel movement no other events Review of Systems Review of Systems: Yes all other systems are reviewed and are negative Physical Exam 2 Vital Signs: Vital Signs: Last Vital Signs Temp 98 F 02/02/25 08:00 Pulse 89 02/02/25 08:00 Resp 20 02/02/25 08:00 BP 109/43 L 02/02/25 08:00 Pulse Ox 95 02/02/25 08:00 O2 Del Method Room Air 02/02/25 08:00 O2 Flow Rate 2 02/02/25 04:00 BMI result Body Mass Index 22.1 Const: Other: Constitutional : interactive, not in distress Cardiovascular : no JVP, no lower extremity edema Respiratory : bilateral chest movement, not in resp distress Gastrointestinal: soft, lax, Non tender, mild distention Skin : Warm, Dry Neurological : Alert & oriented , No focal deficit Objective Data Active Medications Acetaminophen (Acetaminophen 325 Mg Tablet) 650 mg PO Q6H PRN PRN Reason: Pain, Mild 1-3,fever,headache Calcium Carbonate (Calcium Carbonate 750 Mg Tab.Chew) 750 mg PO Q4H PRN PRN Reason: Heartburn Folic Acid (Folic Acid 1 Mg Tablet) 1 mg PO DAILY [facility] Last Admin: 02/02/25 08:35 Dose: 1 mg Documented By: EM Sodium Chloride (Ns) 1,000 mls @ 75 mls/hr IVCONT .[id number] [facility] Last Admin: 02/02/25 08:39 Dose: 75 mls/hr Documented By: EM Lactulose (Lactulose 20 Gm/30 Ml Solution) 30 gm PO TID [facility] Last Admin: 02/02/25 08:34 Dose: 30 gm Documented By: EM Magnesium Hydroxide (Milk Of Magnesia 30 Ml Oral.Susp) 30 ml PO DAILY PRN PRN Reason: Constipation Magnesium Oxide (Magnesium Oxide 400 Mg Tablet) 400 mg PO DAILY [facility] Last Admin: 02/02/25 08:35 Dose: 400 mg Documented By: EM Melatonin (Melatonin 3 Mg Tablet) 6 mg PO BEDTIME PRN PRN Reason: Insomnia Omeprazole (Omeprazole 40 Mg Capsule.Dr) 40 mg PO DAILY@0630 [facility] Last Admin: 02/02/25 06:23 Dose: 40 mg Documented By: OSKAR Ondansetron HCl (Ondansetron Hcl 4 Mg/2 Ml Vial) 4 mg IVPUSH Q8H PRN PRN Reason: Nausea and Vomiting Pharmacy Consult (Consult Rx Etoh Phenob Im/Po) 1 each MISCELLANE ONCE PRN; Protocol PRN Reason: Consult order Phenobarbital (Phenobarbital 15 Mg Tablet) 45 mg PO BID [facility] Stop: 02/03/25 09:01 Last Admin: 02/02/25 08:35 Dose: 45 mg Documented By: EM Phenobarbital (Phenobarbital 15 Mg Tablet) 15 mg PO BID [facility] Stop: 02/05/25 09:01 Phenobarbital (Phenobarbital 15 Mg Tablet) 15 mg PO DAILY [facility] Stop: 02/07/25 09:01 Sodium Chloride (0.9 % Sodium Chloride Flush 3 Ml Syringe) 3 ml IVFLUSH QSHIFT [facility] Last Admin: 02/02/25 08:40 Dose: Not Given Documented By: EM Non-Admin Reason: IV Running Sodium Chloride (Sodium Chloride 0.65 % Nasal 44 Ml Sprbtl) 1 spray NOSTRIL-B Q1H PRN PRN Reason: Dryness Sucralfate (Sucralfate 1 Gm Tablet) 1 gm PO BID [facility] Last Admin: 02/02/25 08:35 Dose: 1 gm Documented By: EM Thiamine HCl (Thiamine Hcl 100 Mg Tablet) 100 mg PO DAILY [facility] Last Admin: 02/02/25 08:35 Dose: 100 mg Documented By: EM Labs 02/02/25 05:09 02/02/25 05:13 Labs: Laboratory Results - last 24 hr 02/01/25 02/02/25 02/02/25 13:57 05:09 05:13 MCV 93.9 MCH 31.6 MCHC 33.6 RDW 14.5 Plt Count 51 L MPV 11.9 Immature Gran % (Auto) 0.3 Neut % (Auto) 63.1 Lymph % (Auto) 20.0 [place] % (Auto) 14.5 H Eos % (Auto) 1.8 Baso % (Auto) 0.3 Lymph # (Auto) 0.7 L [place] # (Auto) 0.5 Eos # (Auto) 0.1 Baso # (Auto) 0.0 Abs Immat Gran (auto) 0.01 Absolute Neuts (auto) 2.1 Absolute Nucleated RBC 0.000 Nucleated RBC % (auto) 0.0 Anion Gap 9 L Estim Creat Clear Calc 106.5 Estimated GFR > 60 Random Glucose 102 Calcium 8.8 Total Bilirubin 0.7 Direct Bilirubin 0.2 AST 28 ALT 7 Alkaline Phosphatase 77 Ammonia 79 H 80 H Total Protein 6.9 Albumin 3.4 L Assessment and Plan (1) Alcohol intoxication: Status: Acute (2) Alcohol abuse: Status: Acute (3) Acute hepatic encephalopathy: Status: Acute Plan This is a 55-year-old male with pertinent history of alcohol use disorder with alcoholic cirrhosis, gastroesophageal reflux disease who presented to the emergency department after alcohol intoxication. # Alcohol use disorder with withdrawal. Phenobarb protocol Monitor CIWA thiamine and folic acid Consulted Addiction Team # Acute hypoxemic respiratory failure due to hypoventilation in the setting of decreased mentation and atelectasis. Wean supplemental O2 as tolerated. Incentive spirometry # Pancytopenia Due to splenomegaly in the setting of cirrhosis and alcoholism. # Acute hepatic encephalopathy 2/2 Alcoholic cirrhosis Ammonia elevated started Lactulose with fair response redirection and reorientation # Hypotension responded to IVF, due to cirrhosis not severe sepsis DC IVF DVT prophylaxis: Mechanical Full code will require overnight minimum hospital stay for management of alcohol withdrawal (as above), which is not possible in a lesser acute setting. Quality Stroke Does the patient have a stroke diagnosis?: No VTE Prior VTE?: No VTE Risk Level:: Medical - moderate - high VTE Device Contraindication: Treatment Not Indicated VTE Drug Contraindication: N/A - Med Ordered
--- NOTE | 2025-02-02 13:12 | MHC.CM.PN ---
PT IS HOMELESS A GROUP HOME LIST AND PCP LIST WILL BE GIVEN TO PT PRIOR TO DC HCP ON FILE
[2025-02-02] MEDS: 0.9 % Sodium Chloride Flush 3 ML SYRINGE IVFLUSH (15:27)
--- NOTE | 2025-02-02 16:00 | PC.NURSE ---
Pt. is lying in bed at this time, eyes closed, vss, pt. has no s/s of pain or distress at this time. Call harris within reach.
--- NOTE | 2025-02-02 21:28 | PC.NURSE ---
Pt. given 2 sandwiches and apple juice at this time. Pt. denie pain or distress at this time.
--- NOTE | 2025-02-02 23:16 | PC.NURSE ---
Report given to LAURA Munguia.
[2025-02-03] VITALS (9 sets, daily range): BP systolic 92–117; BP diastolic 45–57; PULSE 84–96; RESP 16–22; TEMP 36.4–37.7; O2SAT 86–98; BMI 22.3
[2025-02-03] MEDS: 0.9 % Sodium Chloride Flush 3 ML SYRINGE IVFLUSH ×2 (03:01→14:48)
[2025-02-03 05:04] LABS: MANUAL DIFF FLAG NO
[2025-02-03 05:12] LABS: Basophils Percent Auto 0.5 % (0-2); Eosinophils Absolute Auto 0.1 X10*3/uL (0.0-0.4); Eosinophils Percent Auto 2.7 % (0-4); Hematocrit 24.5 % (42.0-52.0); Hemoglobin 7.8 g/dl (14.0-18.0); Imm Gran Abs Auto 0.01 X10*3/uL (0.00-0.03); Imm Gran Pct Auto 0.3 % (0.0-0.4); Lymphocytes Absolute Auto 0.8 X10*3/uL (1.2-4.9); Lymphocytes Percent Auto 22.3 % (20-40); Mean Corpuscular HGB Conc 31.8 g/dl (31.0-36.0); Mean Corpuscular Hemoglobin 31.1 pg (27.0-33.0); Mean Corpuscular Volume 97.6 fL (80.0-98.0); Mean Platelet Volume 12.6 fL (9.4-12.4); Monocytes Absolute Auto 0.5 X10*3/uL (0.1-1.2); Monocytes Percent Auto 12.5 % (2-11); Neutrophils Absolute Auto 2.3 x10*3/uL (2.0-8.3); Neutrophils Percent Auto 61.7 % (45-73); Red Blood Count 2.51 X10*6/uL (4.60-5.80); Red Cell Distribution Width 14.5 % (11.0-16.0); White Blood Count 3.7 X10*3/uL (4.8-10.8)
[2025-02-03 05:20] LABS: Platelet Count 59 X10*3/uL (160-400)
[2025-02-03 05:24] LABS: Anion Gap 10 (12-20); Blood Urea Nitrogen 13 mg/dL (9-16); Carbon Dioxide 18 mmol/L (22-29); Chloride 116 mmol/L (96-108); Creatinine Clr Calc Pharmacy 81.4; Estimated Glomerular Filt Rate > 60; Glucose Random 105 mg/dL (60-115); Potassium 3.9 mmol/L (3.3-5.1); Sodium 140 mmol/L (135-145)
[2025-02-03] MEDS: Omeprazole 40 MG CAPSULE.DR PO (06:12)
--- NOTE | 2025-02-03 06:18 | PC.NURSE ---
pt resting comfortably throughout the night, no apparent distress noted. takes NC off at times. 90% RA, 96% on 2L.
[2025-02-03] MEDS: Folic Acid 1 MG TABLET PO (09:25)
[2025-02-03] MEDS: Magnesium Oxide 400 MG TABLET PO (09:25)
[2025-02-03] MEDS: Thiamine HCL 100 MG TABLET PO (09:25)
[2025-02-03] MEDS: Lactulose 20 GM/30 ML SOLUTION 30 GM PO ×3 (09:25→19:52)
[2025-02-03] MEDS: PHENobarbitaL 15 MG TABLET 45 MG PO (09:25)
[2025-02-03] MEDS: Sucralfate 1 GM TABLET PO ×2 (09:25→19:52)
--- NOTE | 2025-02-03 10:13 | HO.PM.IMPN ---
Subjective Subjective Date of Service: 02/03/25 Interval History: seen and evaluated more alert and interactive having bowel movement no other events Review of Systems Review of Systems: Yes all other systems are reviewed and are negative Physical Exam Vital Signs: Vital Signs: Last Vital Signs Temp 99.3 F 02/03/25 06:08 Pulse 84 02/03/25 09:03 Resp 16 02/03/25 09:03 BP 101/48 L 02/03/25 09:03 Pulse Ox 98 02/03/25 09:03 O2 Del Method Room Air 02/03/25 09:03 O2 Flow Rate 2 02/03/25 06:08 BMI result Body Mass Index 22.1 Const: Other: Constitutional : interactive, not in distress Cardiovascular : no JVP, no lower extremity edema Respiratory : bilateral chest movement, not in resp distress Gastrointestinal: soft, lax, Non tender, mild distention Skin : Warm, Dry Neurological : Alert & oriented , No focal deficit Objective Data Active Medications Acetaminophen (Acetaminophen 325 Mg Tablet) 650 mg PO Q6H PRN PRN Reason: Pain, Mild 1-3,fever,headache Calcium Carbonate (Calcium Carbonate 750 Mg Tab.Chew) 750 mg PO Q4H PRN PRN Reason: Heartburn Folic Acid (Folic Acid 1 Mg Tablet) 1 mg PO DAILY [facility] Last Admin: 02/03/25 09:25 Dose: 1 mg Documented By: MARGOTH Lactulose (Lactulose 20 Gm/30 Ml Solution) 30 gm PO TID [facility] Last Admin: 02/03/25 09:25 Dose: 30 gm Documented By: MARGOTH Magnesium Hydroxide (Milk Of Magnesia 30 Ml Oral.Susp) 30 ml PO DAILY PRN PRN Reason: Constipation Magnesium Oxide (Magnesium Oxide 400 Mg Tablet) 400 mg PO DAILY [facility] Last Admin: 02/03/25 09:25 Dose: 400 mg Documented By: MARGOTH Melatonin (Melatonin 3 Mg Tablet) 6 mg PO BEDTIME PRN PRN Reason: Insomnia Omeprazole (Omeprazole 40 Mg Capsule.) 40 mg PO DAILY@0630 [facility] Last Admin: 02/03/25 06:12 Dose: 40 mg Documented By: FREDERIC Ondansetron HCl (Ondansetron Hcl 4 Mg/2 Ml Vial) 4 mg IVPUSH Q8H PRN PRN Reason: Nausea and Vomiting Pharmacy Consult (Consult Rx Etoh Phenob Im/Po) 1 each MISCELLANE ONCE PRN; Protocol PRN Reason: Consult order Phenobarbital (Phenobarbital 15 Mg Tablet) 15 mg PO BID [facility] Stop: 02/05/25 09:01 Phenobarbital (Phenobarbital 15 Mg Tablet) 15 mg PO DAILY [facility] Stop: 02/07/25 09:01 Sodium Chloride (0.9 % Sodium Chloride Flush 3 Ml Syringe) 3 ml IVFLUSH QSHIFT [facility] Last Admin: 02/03/25 07:38 Dose: Not Given Documented By: MARGOTH Non-Admin Reason: IV Running Sodium Chloride (Sodium Chloride 0.65 % Nasal 44 Ml Sprbtl) 1 spray NOSTRIL-B Q1H PRN PRN Reason: Dryness Sucralfate (Sucralfate 1 Gm Tablet) 1 gm PO BID [facility] Last Admin: 02/03/25 09:25 Dose: 1 gm Documented By: MARGOTH Thiamine HCl (Thiamine Hcl 100 Mg Tablet) 100 mg PO DAILY [facility] Last Admin: 02/03/25 09:25 Dose: 100 mg Documented By: MARGOTH Labs 02/03/25 03:37 02/03/25 03:37 Labs: Laboratory Results - last 24 hr 02/03/25 03:37 MCV 97.6 MCH 31.1 MCHC 31.8 RDW 14.5 Plt Count 59 L MPV 12.6 H Immature Gran % (Auto) 0.3 Neut % (Auto) 61.7 Lymph % (Auto) 22.3 [place] % (Auto) 12.5 H Eos % (Auto) 2.7 Baso % (Auto) 0.5 Lymph # (Auto) 0.8 L [place] # (Auto) 0.5 Eos # (Auto) 0.1 Baso # (Auto) 0.0 Abs Immat Gran (auto) 0.01 Absolute Neuts (auto) 2.3 Absolute Nucleated RBC 0.000 Nucleated RBC % (auto) 0.0 Anion Gap 10 L Estim Creat Clear Calc 81.4 Estimated GFR > 60 Random Glucose 105 Calcium 9.0 Assessment and Plan (1) Acute hepatic encephalopathy: Status: Acute (2) Alcohol intoxication: Status: Acute (3) Alcohol abuse: Status: Acute (4) Alcohol withdrawal syndrome: Status: Acute Plan This is a 55-year-old male with pertinent history of alcohol use disorder with alcoholic cirrhosis, gastroesophageal reflux disease who presented to the emergency department after alcohol intoxication. # Alcohol use disorder with withdrawal. more alert Continue Phenobarb protocol Monitor CIWA thiamine and folic acid Consulted Addiction Team # Acute hypoxemic respiratory failure due to hypoventilation in the setting of decreased mentation and atelectasis. resolved no signs of infection Incentive spirometry # Pancytopenia Due to splenomegaly in the setting of cirrhosis and alcoholism. # Acute hepatic encephalopathy 2/2 Alcoholic cirrhosis Ammonia elevated on admission started Lactulose with fair response redirection and reorientation # Hypotension responded to IVF, due to cirrhosis not severe sepsis DC IVF DVT prophylaxis: Mechanical Full code will require overnight minimum hospital stay for management of alcohol withdrawal (as above), which is not possible in a lesser acute setting. Quality Stroke Does the patient have a stroke diagnosis?: No VTE Prior VTE?: No VTE Risk Level:: Medical - moderate - high VTE Device Contraindication: Treatment Not Indicated VTE Drug Contraindication: N/A - Med Ordered
--- NOTE | 2025-02-03 16:25 | MHC.CM.PN ---
PT NOT READY TO DC TODAY, STILL REQUIRING TREATMENT FOR ALCOHOL WITHDRAWAL DCP: HOME NO SERVICES
--- NOTE | 2025-02-03 16:27 | MHC.CM.PN ---
PT NOT READY TO DC TODAY, STILL REQUIRING TREATMENT FOR ALCOHOL WITHDRAWAL PT RECOMMENDING STR REFERRALS OUT
[2025-02-03] MEDS: Midodrine HCl 2.5 MG TABLET PO ×2 (16:30→19:51)
[2025-02-03] MEDS: Acetaminophen 325 MG TABLET 650 MG PO (19:50)
[2025-02-03] MEDS: PHENobarbitaL 15 MG TABLET PO (19:51)
[2025-02-03] MEDS: Melatonin 3 MG TABLET 6 MG PO (19:51)
[2025-02-04 03:39] VITALS: BP 102/51; PULSE 85; RESP 18; TEMP 37.1; O2SAT 95
[2025-02-04] MEDS: Omeprazole 40 MG CAPSULE.DR PO (05:32)
[2025-02-04 07:07] VITALS: BP 90/53; PULSE 84; RESP 16; TEMP 36.9; O2SAT 95
[2025-02-04] MEDS: Folic Acid 1 MG TABLET PO (08:18)
[2025-02-04] MEDS: Thiamine HCL 100 MG TABLET PO (08:18)
[2025-02-04] MEDS: Magnesium Oxide 400 MG TABLET PO (08:18)
[2025-02-04] MEDS: 0.9 % Sodium Chloride Flush 3 ML SYRINGE IVFLUSH (08:18)
[2025-02-04] MEDS: Midodrine HCl 2.5 MG TABLET PO (08:18)
[2025-02-04] MEDS: PHENobarbitaL 15 MG TABLET PO (08:18)
[2025-02-04] MEDS: Sucralfate 1 GM TABLET PO (08:18)
[2025-02-04 11:40] VITALS: BP 101/53; PULSE 76; RESP 16; TEMP 36.5; O2SAT 92
--- NOTE | 2025-02-04 14:18 | P.DS_ITS ---
DS: Providers Provider Date of Service: 02/04/25 Date of admission: 02/01/25 06:13 Date of discharge: 02/04/25 Primary care physician: None Physician Consults: 02/01/25 06:14 Addiction Medicine Provider Routine Consulting Provider: Arpit Sharp Reason for consultation: Alcohol use disorder DS: Diagnosis Discharge Diagnosis (1) Acute hepatic encephalopathy: Status: Acute (2) Alcohol intoxication: Status: Acute (3) Alcohol abuse: Status: Acute (4) Alcohol withdrawal syndrome: Status: Acute DS: Summary Hospital Course Hospital Course: Admission note HPI This is a 55-year-old male with pertinent history of alcohol use disorder with alcoholic cirrhosis, gastroesophageal reflux disease who presented to the emergency department after alcohol intoxication. Patient was discharged from the ER 1 day prior to presentation but reports he was not able to find the nursing home. He was found at a liquor store and admits to drinking alcohol. Patient denies any complaints in the time of my evaluation. He appears intoxicated and not willing to participate in conversation or follow commands. He denied dyspnea, orthopnea or PND. No cough. Patient was found to be satting low and placed on supplemental oxygen in the ER. CT scan with atelectasis. Patient does not know his home medications. Hospital course # Alcohol use disorder with withdrawal. Placed on Phenobarb protocol and Monitored by [place]. Kept on thiamine and folic acid which he will be discharged on. Consulted Addiction Team # Acute hypoxemic respiratory failure due to hypoventilation in the setting of decreased mentation and atelectasis. resolved. no signs of infection. kept on Incentive spirometry and weaned off O2 as mentation improved. # Pancytopenia. due to splenomegaly in the setting of cirrhosis and alcoholism. # Acute hepatic encephalopathy secondary to Alcoholic cirrhosis. Ammonia elevated on admission at 80. started Lactulose with fair response as he made bowel movements and mental status improved to baseline. # Hypotension, Chornic. due to cirrhosis not severe sepsis. # PHysical deconditioning: patient able to ambulate and participate with PT who recommended STR placement but he refuses and wants to be discharged to nursing home. Discharge plan We advise you complete abstinence from Alcohol Take Folic acid and Thiamine as prescribed Lactulose with goal of 2 regular bowel movements daily Time Attestation Discharge Coordination Time (in mins): 39 Quality: Safe Use of Opioids Does Pt have an Active Cancer Diagnosis on the Problem List?: No Quality: Stroke Does the patient have a stroke diagnosis?: No Physical Exam Vital Signs: Vital Signs: Last Vital Signs Temp 97.7 F 02/04/25 11:40 Pulse 76 02/04/25 11:40 Resp 16 02/04/25 11:40 BP 101/53 L 02/04/25 11:40 Pulse Ox 92 02/04/25 11:40 O2 Del Method Room Air 02/04/25 11:40 O2 Flow Rate 1 02/04/25 07:07 BMI result Body Mass Index 22.3 Const: Other: Constitutional : interactive, not in distress Cardiovascular : no JVP, no lower extremity edema Respiratory : bilateral chest movement, not in resp distress Gastrointestinal: soft, lax, Non tender, mild distention Skin : Warm, Dry Neurological : Alert & oriented , No focal deficit DS: Data Data Completed and Pending Completed studies during hospitalization [Text1]: Procedures Control Bleeding in Gastrointestinal Tract, Via Natural or Artificial Opening Endoscopic (08/29/23) Control Bleeding in Nasal Mucosa and Soft Tissue, Via Natural or Artificial Opening (11/29/24) Detoxification Services for Substance Abuse Treatment (12/11/24) Drainage of Peritoneal Cavity, Percutaneous Approach (10/21/24) Excision of Ascending Colon, Via Natural or Artificial Opening Endoscopic, Diagnostic (08/03/23) Excision of Descending Colon, Via Natural or Artificial Opening Endoscopic, Diagnostic (08/03/23) Insertion of Infusion Device into Upper Vein, Percutaneous Approach (08/29/23) Introduction of Mineral-based Topical Hemostatic Agent into Lower GI, Via Natural or Artificial Opening Endoscopic, [employer] (08/03/23) Introduction of Mineral-based Topical Hemostatic Agent into Upper GI, Via Natural or Artificial Opening Endoscopic, [employer] (08/29/23) Occlusion of Esophageal Vein with Extraluminal Device, Via Natural or Artificial Opening Endoscopic (11/29/24) Occlusion of Esophageal Vein, Via Natural or Artificial Opening Endoscopic (01/22/24) Transfusion of Nonautologous Plasma Cryoprecipitate into Peripheral Vein, Percutaneous Approach (08/03/23) Transfusion of Nonautologous Platelets into Peripheral Vein, Percutaneous Approach (11/29/24) Transfusion of Nonautologous Red Blood Cells into Peripheral Vein, Percutaneous Approach (11/29/24) Discharge Plan Discharge Anticipated Discharge Date/Time: 02/04/25 14:15 Patient Disposition: Residential Discharge Diagnosis: Alcoholic encephalopathy Alcohol abuse Referrals: Physician,None [Primary Care Provider] - 1 Week Discharge Medications: New folic acid 1 mg Tablet 1 mg PO DAILY Qty: 90 0RF thiamine mononitrate (vit B1) 100 mg Tablet 100 mg PO DAILY Qty: 90 0RF Continued sucralfate [Carafate] 1 gram tablet 1 g PO BID Qty: 60 0RF acetaminophen 325 mg Tablet 975 mg PO Q6H PRN (Reason: Pain, Mild 1-3,Fever,Headache) Qty: 30 0RF magnesium oxide 400 mg (241.3 mg magnesium) Tablet 400 mg PO DAILY Qty: 30 0RF [place] Nasal 0.65 % Aerosol,[place] 1 spray intranasal Q1H PRN (Reason: Dryness) Qty: 44 0RF lactulose 10 gram/15 mL solution 30 ml PO TID omeprazole 40 mg capsule,delayed release(DR/EC) 40 mg PO DAILY@0630 Discharge Orders: Discharge Order (Routine); Ordered 02/04/25 Ordered By: Emily Lawrence Diet: Low salt diet Activity on Discharge: As tolerated Stand Alone Forms: Patient Portal Discharge page Print Language: [place]ian Care Plan Goals: We advise you complete abstinence from Alcohol Take Folic acid and Thiamine as prescribed Lactulose with goal of 2 regular bowel movements daily Health Concerns: hepatic encephalopathy alcohol abuse and withdrawal Plan of Treatment: Quit alcohol Folic acid and Thiamine Lactulose Assessment: as above
--- NOTE | 2025-02-04 14:42 | MHC.CM.PN ---
DP: PT CONTINUES TO DECLINE STR, STATES HE HAS A PLACE TO GO ON [address] WHERE HE GETS MEALS. PT WILL TAKE BUS, BUS PASSES PROVIDED.
[2025-02-04 14:50] VITALS: BP 123/57; PULSE 92; RESP 16; O2SAT 91
== END 2025-02-04 15:36 | disposition home or self-care (01) | DRG 775 ==
LOC: HO.ED 02-01 01:00 → HO.EDOVER 02-01 06:18 → HO.S3 02-03 08:13
PROVIDERS: Admitting Provider Student in an Organized Health Care Education/Training Program; Emergency Provider Emergency Medicine; Visit Provider Student in an Organized Health Care Education/Training Program
DX: F10.239 Alcohol dependence with withdrawal, unspecified (principal); F10.229 Alcohol dependence with intoxication, unspecified; J96.01 Acute respiratory failure with hypoxia; D61.818 Other pancytopenia; K76.82 Hepatic encephalopathy; K70.30 Alcoholic cirrhosis of liver without ascites; I95.9 Hypotension, unspecified; R53.81 Other malaise; J98.11 Atelectasis; Z20.822 Contact with and (suspected) exposure to COVID-19; Z79.899 Other long term (current) drug therapy
CPT/HCPCS: 0241U; 36415; 71045; 71250; 80048; 80076; 82140; 83880; 84484; 85025; 93005; 97162; 99285; J1940; J2560; J3411; P9047

== ENCOUNTER → 2025-01-31 22:16 | Outpatient (BNV) | payer MEDICAID, SELFPAY | PROVIDERS: Emergency Provider Emergency Medicine; Visit Provider Radiology Diagnostic Radiology | DX: R07.89 Other chest pain (principal); J81.0 Acute pulmonary edema; I51.7 Cardiomegaly | CPT/HCPCS: 71045 ==

== ENCOUNTER → 2025-02-01 00:43 | Outpatient (BNV) | payer MEDICAID, SELFPAY | PROVIDERS: Admitting Provider Student in an Organized Health Care Education/Training Program; Emergency Provider Emergency Medicine; Visit Provider Internal Medicine Cardiovascular Disease | DX: I50.9 Heart failure, unspecified (principal); R94.31 Abnormal electrocardiogram [ECG] [EKG] | CPT/HCPCS: 93010 ==

== ENCOUNTER → 2025-02-01 02:39 | Outpatient (BNV) | payer MEDICAID, SELFPAY | PROVIDERS: Emergency Provider Emergency Medicine; Visit Provider Radiology Diagnostic Radiology | DX: R06.09 Other forms of dyspnea (principal); R09.02 Hypoxemia; I85.00 Esophageal varices without bleeding | CPT/HCPCS: 71250 ==

== ENCOUNTER → 2025-02-01 06:13 | Outpatient (BNV) | payer MEDICAID, SELFPAY | PROVIDERS: Admitting Provider Student in an Organized Health Care Education/Training Program; Emergency Provider Emergency Medicine; Visit Provider Student in an Organized Health Care Education/Training Program | DX: F10.929 Alcohol use, unspecified with intoxication, unspecified (principal); K76.82 Hepatic encephalopathy; J96.01 Acute respiratory failure with hypoxia | CPT/HCPCS: 99222; 99232; 99499 ==

== ENCOUNTER 2025-02-04 23:53 | Emergency (ER) | payer MEDICAID, SELFPAY ==
[2025-02-05] VITALS (7 sets, daily range): BP systolic 87–118; BP diastolic 47–66; PULSE 79–93; RESP 14–18; TEMP 36.4–37.1; O2SAT 92–98; BMI 25.7
--- NOTE | 2025-02-05 00:03 | ED_ITS ---
HPI - Alcohol General Chief Complaint: ETOH/Substance Use Stated Complaint: ETOH Time Seen by Provider: 02/05/25 00:01 Source: patient and EMS Mode of arrival: EMS Limitations: altered mental status and other History of Present Illness ED Provider: Dr. Alexandria Sweeney HPI narrative: Patient comes to the emergency room via ambulance. Patient was found at our local dollar store here in [place]. Patient denies any falls. Patient admits to drinking alcohol. He was discharged from the hospital yesterday. Patient was diagnosed with hepatic encephalopathy, alcohol intoxication, alcohol abuse Today patient denies any falls, chronic pain in his legs which she has had for years. Related Data Home Medications ?Medication ?Instructions ?Recorded ?Confirmed lactulose 10 gram/15 mL oral 30 ml PO TID 02/01/25 02/01/25 solution omeprazole 40 mg capsule,delayed 40 mg PO DAILY@0630 02/01/25 02/01/25 release Previous Rx's ?Medication ?Instructions ?Recorded acetaminophen 325 mg tablet 975 mg (3 x 325 mg) PO Q6H PRN 12/17/24 Pain, Mild 1-3,Fever,Headache #30 tabs magnesium oxide 400 mg (241.3 mg 400 mg PO DAILY #30 tabs 12/17/24 magnesium) tablet sodium chloride 0.65 % nasal spray 1 spray intranasal Q1H PRN Dryness 12/17/24 aerosol (Deep Sea Nasal) #44 mL sucralfate 1 gram tablet (Carafate) 1 g PO BID #60 tabs 12/17/24 folic acid 1 mg tablet 1 mg PO DAILY #90 tabs 02/04/25 thiamine mononitrate (vit B1) 100 100 mg PO DAILY #90 tabs 02/04/25 mg tablet Allergies Allergy/AdvReac Type Severity Reaction Status Date / Time No Known Allergies Allergy Verified 02/05/25 00:32 [No Known Allergies*] Review of Systems Review of Systems: Constitutional : No Weight loss, No Fever, No Chills, No Night Sweats, No Fatigue, No Malaise ENT/Mouth : No Hearing loss, No Ear Pain, No Nasal Congestion, No Sinus Pain, No Hoarseness, No sore throat, No Rhinorrhea, No Swallowing Difficulty Eyes: No Eye Pain, No Swelling, No Redness, No Foreign Body, No Discharge, No Vision Changes Cardiovascular : No Chest Pain, No SOB, No Dyspnea on Exertion, No Orthopnea, No Edema, No Palpitations Respiratory : No Cough, No Sputum, No Wheezing, No Smoke Exposure, No Dyspnea Gastrointestinal : No Nausea, No Vomiting, No Diarrhea, No Constipation, No abdominal Pain, No Hematochezia, No Melena Genitourinary : no irregular bleeding, No Dysuria, No Urinary Frequency, No Hematuria, No Urinary Incontinence, No Urgency, No Flank Pain, No Urinary Flow Changes, No Hesitancy Musculoskeletal : No joint pain, No Myalgias, No Joint Swelling Skin : No Skin Lesions, No rash Neuro : No Weakness, No Numbness, No Paresthesias, No Loss of Consciousness, No Dizziness, No Headache Psych : No Anxiety/Panic, No Depression, No SI/HI/AH/VH, admits to alcohol abuse Heme/Lymph: No Bruising, No Bleeding,No Lymphadenopathy Endocrine : No Polyuria, No Polydipsia, No Temperature Intolerance PMFSH Past Medical History Medical History Alcohol withdrawal syndrome Pancytopenia Alcohol abuse Thrombocytopenia Esophageal varices Alcohol use disorder Acute on chronic anemia Alcoholic liver disease Aspiration pneumonia Thrombocytopenia Malnutrition CHF (congestive heart failure) Anemia Hypomagnesemia Cirrhosis Thrombocytopenia Acute on chronic anemia CHF (congestive heart failure) Anemia Pneumonia Alcohol abuse Surgical History No history of previous surgery Social History Social History Household Members: None Household Members Other:: homeless Housing: Homeless Housing Other:: homeless Unable to assess alcohol history related to: Refusing to respond Alcohol intake: current Alcohol intake frequency: 3 or more drinks per day Alcohol type: beer and hard liquor Comment: 1 assist to bathroom Patient Tobacco Use Status: Former Tobacco user Tobacco use type: Cigarette Second Hand Smoke Exposure: No Advance Directives: Yes Advance Directives on File: Yes Advance Directives Date on File: 07/03/23 service: No Physical Exam ED Vital Signs: Vital Signs - 24 hr 02/05/25 00:30 02/05/25 01:46 02/05/25 04:53 Temperature 97.6 F 98.0 F 98.1 F Pulse Rate 79 87 86 Respiratory Rate 16 14 16 Blood Pressure 90/52 L 104/51 L 97/53 L Pulse Oximetry 93 93 93 Oxygen Delivery Method Room Air Room Air Room Air 02/05/25 06:21 Temperature 98.8 F Pulse Rate 83 Respiratory Rate 14 Blood Pressure 87/47 L Pulse Oximetry 96 Oxygen Delivery Method Room Air BMI result Body Mass Index 25.7 Const Other: Appearance: Alert. Oriented X3. Clinically intoxicated, talking, able to have a coherent conversation. Eyes: Pupils equal, round and reactive to light. ENT: Pharynx normal. Neck: Normal inspection. Neck supple. No lymph nodes noted. No crepitus CVS: Normal heart rate and rhythm. Pulses normal. Normal S1 and S2 Respiratory: No respiratory distress. Breath sounds normal. No Wheezing. No rales Abdomen: Soft and nontender. No rigidity. No distention. Skin: Skin warm and dry. Normal skin color. Normal skin turgor. Extremities: No lower extremity edema. No Lacerations. No Rash Neuro: Oriented X 3. No motor deficit. No sensory deficit. Moving all extremities. No slurred speech. CN 2 through 12 grossly intact Psych: calm, cooperative, normal affect Course Course Course Narrative: Physician observation started at 00:05 Medical Decision Making Medical Decision Making MDM Narrative: Patient has a soft BP, in the high 80s, pt recieving 1 L NS Differential Diagnosis Differential Diagnoses: The differential diagnosis associated with the presentation includes (Alcohol intoxication) Discharge Plan Discharge Clinical Impression: Alcohol intoxication Patient Disposition: Still a Patient Prescriptions: No Action sucralfate [Carafate] 1 gram tablet 1 g PO BID Qty: 60 0RF acetaminophen 325 mg Tablet 975 mg PO Q6H PRN (Reason: Pain, Mild 1-3,Fever,Headache) Qty: 30 0RF magnesium oxide 400 mg (241.3 mg magnesium) Tablet 400 mg PO DAILY Qty: 30 0RF [place] Nasal 0.65 % Aerosol,[place] 1 spray intranasal Q1H PRN (Reason: Dryness) Qty: 44 0RF lactulose 10 gram/15 mL solution 30 ml PO TID omeprazole 40 mg capsule,delayed release(DR/EC) 40 mg PO DAILY@0630 folic acid 1 mg Tablet 1 mg PO DAILY Qty: 90 0RF thiamine mononitrate (vit B1) 100 mg Tablet 100 mg PO DAILY Qty: 90 0RF Print Language: Kiswahili
--- NOTE | 2025-02-05 00:30 | MHC.EDTECH ---
Patient changed over Security placed his 2 beers in safe Patients clothes put in washer in the POD
--- NOTE | 2025-02-05 01:56 | MHC.EDTECH ---
pts belongings washed and dried at the head of the bed.
[2025-02-05] MEDS: 0.9 % Sodium Chloride 1,000 ML 999 ML IVCONT (06:41)
--- NOTE | 2025-02-05 06:43 | PC.NURSE ---
BP low(see vitals),Pt reporting feeling drowsy. MD made aware. #20IV placed in L upper forearm. 1L NS administered per orders.
== END 2025-02-05 10:53 | disposition home or self-care (01) ==
PROVIDERS: Emergency Provider Emergency Medicine
DX: F10.120 Alcohol abuse with intoxication, uncomplicated (principal); Y90.9 Presence of alcohol in blood, level not specified; Z59.00 Homelessness unspecified
CPT/HCPCS: 36415; 80048; 80076; 80307; 82140; 83690; 83735; 85025; 85610; 96360; 96361; 99283; 99284

== ENCOUNTER 2025-02-05 21:24 | Emergency (ER) | payer MEDICAID, SELFPAY ==
[2025-02-05 21:49] VITALS: BP 104/68; BP 97/49; PULSE 80; PULSE 85; RESP 16; TEMP 37.2; O2SAT 94; O2SAT 96
--- NOTE | 2025-02-05 23:42 | PC.NURSE ---
pt up walking around his bedside, no s/s of distress, pt asking to go to the bathroom and directed to it. no tremors, skin warm and dry.
--- NOTE | 2025-02-05 23:49 | ED.GENADULT ---
HPI - General Adult General Chief complaint: Extremity Problem Stated complaint: lft foot pain , shoulder pain, etoh Time Seen by Provider: 02/05/25 22:02 History of Present Illness ED Provider: Marty VIVAR narrative: The patient is a 55-year-old homeless alcoholic who frequently comes to the emergency room. He has been hospitalized with greater frequency reasonably because of worsening signs of chronic liver disease. He arrived by ambulance. Apparently he has been complaining of left foot pain but he was asleep and I was unable to wake him when I try to evaluate him. Labs were done that showed an alcohol level of 153. He was observed. I re-evaluated him at 06:00. This point he was awake in his alcohol level would be below 80. He is requesting discharge. He says that he is not suicidal. He also says that he does not want to go to detox. He is requesting that he be discharged. The patient was recently hospitalized from February 01 through February 04 (the day before presenting on this occasion). Related Data Home Medications ?Medication ?Instructions ?Recorded ?Confirmed lactulose 10 gram/15 mL oral 30 ml PO TID 02/01/25 02/01/25 solution omeprazole 40 mg capsule,delayed 40 mg PO DAILY@0630 02/01/25 02/01/25 release Previous Rx's ?Medication ?Instructions ?Recorded acetaminophen 325 mg tablet 975 mg (3 x 325 mg) PO Q6H PRN 12/17/24 Pain, Mild 1-3,Fever,Headache #30 tabs magnesium oxide 400 mg (241.3 mg 400 mg PO DAILY #30 tabs 12/17/24 magnesium) tablet sodium chloride 0.65 % nasal spray 1 spray intranasal Q1H PRN Dryness 12/17/24 aerosol (Deep Sea Nasal) #44 mL sucralfate 1 gram tablet (Carafate) 1 g PO BID #60 tabs 12/17/24 folic acid 1 mg tablet 1 mg PO DAILY #90 tabs 02/04/25 thiamine mononitrate (vit B1) 100 100 mg PO DAILY #90 tabs 02/04/25 mg tablet Allergies Allergy/AdvReac Type Severity Reaction Status Date / Time No Known Allergies Allergy Verified 02/05/25 21:54 [No Known Allergies*] Review of Systems Review of Systems: Yes all other systems are reviewed and are negative FOR[facility]LY [facility], [facility] Past Medical History Medical History Alcohol withdrawal syndrome Pancytopenia Alcohol abuse Thrombocytopenia Esophageal varices Alcohol use disorder Acute on chronic anemia Alcoholic liver disease Aspiration pneumonia Thrombocytopenia Malnutrition CHF (congestive heart failure) Anemia Hypomagnesemia Cirrhosis Thrombocytopenia Acute on chronic anemia CHF (congestive heart failure) Anemia Pneumonia Alcohol abuse Surgical History No history of previous surgery Social History Social History Household Members: None Household Members Other:: homeless Housing: Homeless Housing Other:: homeless Unable to assess alcohol history related to: Refusing to respond Alcohol intake: current Alcohol intake frequency: 3 or more drinks per day Alcohol type: beer and hard liquor Comment: 1 assist to bathroom Patient Tobacco Use Status: Former Tobacco user Tobacco use type: Cigarette Second Hand Smoke Exposure: No Advance Directives: Yes Advance Directives on File: Yes Advance Directives Date on File: 07/03/23 Do you have a plan to hurt others: No Plan service: No Physical Exam ED Vital Signs: Vital Signs - 24 hr 02/05/25 21:49 02/06/25 01:19 02/06/25 06:00 Temperature 99 F 99.1 F Pulse Rate 80 77 Respiratory Rate 16 14 16 Blood Pressure 97/49 L 99/79 Pulse Oximetry 96 Oxygen Delivery Method Room Air Room Air 02/06/25 06:07 Temperature 98.0 F Pulse Rate 96 Respiratory Rate 16 Blood Pressure 99/79 Pulse Oximetry 99 Oxygen Delivery Method Room Air BMI result Body Mass Index 20.0 Const Other: The patient was initially fairly soundly asleep. Several hours later he was awake and alert and did not seem in distress. HENMT Other: No signs of acute trauma to the face or the head. Face is symmetrical. Mucous membranes moist. Eyes Visual Celeste: normal visual celeste by confrontation Eyelids: Yes eyelids normal Conjunctivae: conjunctivae normal Sclerae: sclerae normal Pupils: Equal, round and reactive pupils present Neck Neck: Yes full ROM and Yes no lymphadenopathy Resp Effort & Inspection: normal respiratory effort Auscultation: clear to auscultation bilaterally Cardio Rate: regular rate Rhythm: regular rhythm Heart sounds: S1 normal heart sound present and S2 normal heart sound present GI Other: The abdomen is soft and nontender Skin Other: The patient has peripheral edema of the lower legs. Neuro Other: The patient was initially sleeping fairly soundly. Later he was awake and alert. Cranial nerves 2-12 are grossly intact. He moves his extremities symmetrically. Cranial nerves: Yes Equal, round and reactive pupils present Extrem Other: The patient has swelling of both lower legs consistent with significant peripheral edema. Medical Decision Making Medical Decision Making [facility] Narrative: The patient is a 55-year-old male with severe alcoholism and homelessness who has had innumerable emergency room visits. He returns today in his similar fashion. He does not seem obviously acutely ill. He seems intoxicated. He was allowed to sleep in the emergency room for several hours. Ultimately he announced that he wanted to be discharged. He was offered the option of staying in the hospital to speak with someone from the crisis team. The patient was not interested. He is not suicidal. Lab Data 02/06/25 00:39 02/06/25 00:39 Labs: Lab Results 02/06/25 Range/Units 00:39 WBC 3.0 L (4.8-10.8) X10*3/uL RBC 2.34 L (4.60-5.80) X10*6/uL Hgb 7.3 L (14.0-18.0) g/dl Hct 22.1 L (42.0-52.0) % MCV 94.4 (80.0-98.0) fL MCH 31.2 (27.0-33.0) pg MCHC 33.0 (31.0-36.0) g/dl RDW 14.9 (11.0-16.0) % Plt Count 57 L (160-400) X10*3/uL MPV 11.3 (9.4-12.4) fL Immature Gran % (Auto) 0.3 (0.0-0.4) % Neut % (Auto) 49.9 (45-73) % Lymph % (Auto) 32.3 (20-40) % [place] % (Auto) 12.1 H (2-11) % Eos % (Auto) 4.7 H (0-4) % Baso % (Auto) 0.7 (0-2) % Lymph # (Auto) 1.0 L (1.2-4.9) X10*3/uL [place] # (Auto) 0.4 (0.1-1.2) X10*3/uL Eos # (Auto) 0.1 (0.0-0.4) X10*3/uL Baso # (Auto) 0.0 (0.0-0.2) X10*3/uL Abs Immat Gran (auto) 0.01 (0.00-0.03) X10*3/uL Absolute Neuts (auto) 1.5 L (2.0-8.3) x10*3/uL Absolute Nucleated RBC 0.000 (0.0-0.012) X10*3/uL Nucleated RBC % (auto) 0.0 (0.0-0.2) /100WBC PT 15.6 H D (10.9-12.4) SEC INR 1.3 H (0.9-1.1) Sodium 140 (135-145) mmol/L Potassium 4.1 (3.3-5.1) mmol/L Chloride 116 H (96-108) mmol/L Carbon Dioxide 18 L (22-29) mmol/L Anion Gap 10 L (12-20) BUN 18 H (9-16) mg/dL Creatinine 0.69 (0.5-1.4) mg/dL Estim Creat Clear Calc 92.0 Estimated GFR > 60 Random Glucose 88 (60-115) mg/dL Calcium 8.6 (8.4-10.2) mg/dL Magnesium 1.8 (1.6-2.6) mg/dL Total Bilirubin 0.3 (0.0-1.0) mg/dL Direct Bilirubin 0.2 (0.0-0.5) mg/dL AST 27 (5-37) U/L ALT 8 (0-40) U/L Alkaline Phosphatase 97 (39-117) U/L Ammonia 69 H (13-55) umol/L Total Protein 6.9 (6.5-8.0) g/dL Albumin 3.4 L (3.5-5.0) g/dL Lipase 24 (8-78) U/L Ethyl Alcohol 153 mg/dL Discharge Plan Discharge Clinical Impression: Alcohol intoxication, Alcohol abuse Patient Disposition: Home, Self-Care Additional Instructions: Please do your best to stop drinking. Please continue all the medications that were prescribed for you when you were recently discharged from the hospital. Please try to get a regular primary care doctor. Return to the emergency room if significantly worse. Prescriptions: No Action sucralfate [Carafate] 1 gram tablet 1 g PO BID Qty: 60 0RF acetaminophen 325 mg Tablet 975 mg PO Q6H PRN (Reason: Pain, Mild 1-3,Fever,Headache) Qty: 30 0RF magnesium oxide 400 mg (241.3 mg magnesium) Tablet 400 mg PO DAILY Qty: 30 0RF Deep Sea Nasal 0.65 % Aerosol,[place] 1 spray intranasal Q1H PRN (Reason: Dryness) Qty: 44 0RF lactulose 10 gram/15 mL solution 30 ml PO TID omeprazole 40 mg capsule,delayed release(DR/EC) 40 mg PO DAILY@0630 folic acid 1 mg Tablet 1 mg PO DAILY Qty: 90 0RF thiamine mononitrate (vit B1) 100 mg Tablet 100 mg PO DAILY Qty: 90 0RF Referrals: [facility] [Provider Group] [facility] [Provider Group] Interventions: ED Discharge Assessment Last Done: 02/06/25 06:07 Discharge Date/Time: 02/06/25 06:09 Print Language: Polish
[2025-02-06 00:46] LABS: Basophils Percent Auto 0.7 % (0-2); Eosinophils Absolute Auto 0.1 X10*3/uL (0.0-0.4); Eosinophils Percent Auto 4.7 % (0-4); Hematocrit 22.1 % (42.0-52.0); Hemoglobin 7.3 g/dl (14.0-18.0); Imm Gran Abs Auto 0.01 X10*3/uL (0.00-0.03); Imm Gran Pct Auto 0.3 % (0.0-0.4); Lymphocytes Percent Auto 32.3 % (20-40); MANUAL DIFF FLAG NO; Mean Corpuscular Hemoglobin 31.2 pg (27.0-33.0); Mean Corpuscular Volume 94.4 fL (80.0-98.0); Mean Platelet Volume 11.3 fL (9.4-12.4); Monocytes Absolute Auto 0.4 X10*3/uL (0.1-1.2); Monocytes Percent Auto 12.1 % (2-11); Neutrophils Absolute Auto 1.5 x10*3/uL (2.0-8.3); Neutrophils Percent Auto 49.9 % (45-73); Red Blood Count 2.34 X10*6/uL (4.60-5.80); Red Cell Distribution Width 14.9 % (11.0-16.0)
[2025-02-06 00:48] LABS: Platelet Count 57 X10*3/uL (160-400)
[2025-02-06 00:52] LABS: Ammonia 69 umol/L (13-55)
[2025-02-06 00:53] LABS: INTERNATIONAL NORM RATIO 1.3 (0.9-1.1); Prothrombin Time 15.6 SEC (10.9-12.4)
[2025-02-06 01:03] LABS: Alanine Aminotransferase 8 U/L (0-40); Albumin Level 3.4 g/dL (3.5-5.0); Alkaline Phosphatase 97 U/L (39-117); Anion Gap 10 (12-20); Aspartate Amino Transferase 27 U/L (5-37); Bilirubin Direct 0.2 mg/dL (0.0-0.5); Bilirubin Total 0.3 mg/dL (0.0-1.0); Blood Urea Nitrogen 18 mg/dL (9-16); Calcium 8.6 mg/dL (8.4-10.2); Carbon Dioxide 18 mmol/L (22-29); Chloride 116 mmol/L (96-108); Estimated Glomerular Filt Rate > 60; Ethanol 153 mg/dL; Glucose Random 88 mg/dL (60-115); Lipase 24 U/L (8-78); Magnesium 1.8 mg/dL (1.6-2.6); Potassium 4.1 mmol/L (3.3-5.1); Sodium 140 mmol/L (135-145); Total Protein 6.9 g/dL (6.5-8.0)
[2025-02-06 01:19] VITALS: BP 99/79; PULSE 77; RESP 14; TEMP 37.3
--- NOTE | 2025-02-06 05:46 | PC.NURSE ---
pt awake walking with a steady gait around his bed. pt has been given orange juice and a sandwhich and feels ready to go .
[2025-02-06 06:00] VITALS: RESP 16
[2025-02-06 06:07] VITALS: BP 99/79; PULSE 96; RESP 16; TEMP 36.7; O2SAT 99
== END 2025-02-06 06:09 | disposition home or self-care (01) ==
PROVIDERS: Emergency Provider Emergency Medicine
DX: F10.120 Alcohol abuse with intoxication, uncomplicated (principal); Y90.6 Blood alcohol level of 120-199 mg/100 ml; K70.30 Alcoholic cirrhosis of liver without ascites; Z59.00 Homelessness unspecified
CPT/HCPCS: 36415; 80048; 80076; 80307; 82140; 83690; 83735; 85025; 85610; 99283; 99284

== ENCOUNTER 2025-02-06 23:45 | Emergency (ER) | payer MEDICAID, SELFPAY ==
--- NOTE | ~2025-02-06 | XR_ITS ---
CLINICAL HISTORY: low o2 1 view chest x-ray. Comparison: 01/31/2025 Findings: No consolidation, pneumothorax, or effusion. Mild nonspecific interstitial prominence identified within the bilateral lungs. Heart size is at the upper limits of normal. Impression: 1. Mild nonspecific interstitial opacities identified within the bilateral lungs. Differential considerations include chronic lung changes/scarring, subtle pulmonary interstitial edema, or scattered atypical/viral infiltrates. Clinical correlation is advised. No focal pulmonary consolidation This document has been electronically signed by: Kain Headley MD on 02/07/2025 01:47:30
[2025-02-06 23:51] VITALS: O2SAT 90
[2025-02-07 00:10] VITALS: BP 121/59; PULSE 85; RESP 20; TEMP 37.2; O2SAT 88; BMI 19.4
--- NOTE | 2025-02-07 00:17 | PC.NURSE ---
pt private branch exchange installer into hospital attire, pt had low O2 88 room air and swollen ankle bilateral , notified Provider Dr. Bae, per provider on a chest x-ray at this time, pt place on 2L of oxygen.
--- NOTE | 2025-02-07 02:27 | ED.GENADULT ---
HPI - General Adult General Chief complaint: General Medical Stated complaint: ETOH, ankle pain & knees weak per EMS Time Seen by Provider: 02/07/25 01:19 Source: patient and EMS Mode of arrival: EMS Limitations: no limitations History of Present Illness ED Provider: Dr. Alexandria Sweeney HPI narrative: Patient comes to the emergency room complaining of alcohol intoxication and chronic foot pain. Patient denies any injuries, denies chest pain or shortness of breath. Related Data Home Medications ?Medication ?Instructions ?Recorded ?Confirmed lactulose 10 gram/15 mL oral 30 ml PO TID 02/01/25 02/01/25 solution omeprazole 40 mg capsule,delayed 40 mg PO DAILY@0630 02/01/25 02/01/25 release Previous Rx's ?Medication ?Instructions ?Recorded acetaminophen 325 mg tablet 975 mg (3 x 325 mg) PO Q6H PRN 12/17/24 Pain, Mild 1-3,Fever,Headache #30 tabs magnesium oxide 400 mg (241.3 mg 400 mg PO DAILY #30 tabs 12/17/24 magnesium) tablet sodium chloride 0.65 % nasal spray 1 spray intranasal Q1H PRN Dryness 12/17/24 aerosol (Deep Sea Nasal) #44 mL sucralfate 1 gram tablet (Carafate) 1 g PO BID #60 tabs 12/17/24 folic acid 1 mg tablet 1 mg PO DAILY #90 tabs 02/04/25 thiamine mononitrate (vit B1) 100 100 mg PO DAILY #90 tabs 02/04/25 mg tablet Allergies Allergy/AdvReac Type Severity Reaction Status Date / Time No Known Allergies Allergy Verified 02/07/25 00:11 [No Known Allergies*] Review of Systems Review of Systems: Constitutional : No Weight loss, No Fever, No Chills, No Night Sweats, No Fatigue, No Malaise ENT/Mouth : No Hearing loss, No Ear Pain, No Nasal Congestion, No Sinus Pain, No Hoarseness, No sore throat, No Rhinorrhea, No Swallowing Difficulty Eyes: No Eye Pain, No Swelling, No Redness, No Foreign Body, No Discharge, No Vision Changes Cardiovascular : No Chest Pain, No SOB, No Dyspnea on Exertion, No Orthopnea, No Edema, No Palpitations Respiratory : No Cough, No Sputum, No Wheezing, No Smoke Exposure, No Dyspnea Gastrointestinal : No Nausea, No Vomiting, No Diarrhea, No Constipation, No abdominal Pain, No Hematochezia, No Melena Genitourinary : no irregular bleeding, No Dysuria, No Urinary Frequency, No Hematuria, No Urinary Incontinence, No Urgency, No Flank Pain, No Urinary Flow Changes, No Hesitancy Musculoskeletal : Complaining of bilateral foot pain, No joint pain, No Myalgias, No Joint Swelling Skin : No Skin Lesions, No rash Neuro : No Weakness, No Numbness, No Paresthesias, No Loss of Consciousness, No Dizziness, No Headache Psych : No Anxiety/Panic, No Depression, No SI/HI/AH/VH, admits to drinking alcohol heavily Heme/Lymph: No Bruising, No Bleeding,No Lymphadenopathy Endocrine : No Polyuria, No Polydipsia, No Temperature Intolerance FOR[facility]LY [facility] Past Medical History Medical History Alcohol withdrawal syndrome Pancytopenia Alcohol abuse Thrombocytopenia Esophageal varices Alcohol use disorder Acute on chronic anemia Alcoholic liver disease Aspiration pneumonia Thrombocytopenia Malnutrition CHF (congestive heart failure) Anemia Hypomagnesemia Cirrhosis Thrombocytopenia Acute on chronic anemia CHF (congestive heart failure) Anemia Pneumonia Alcohol abuse Surgical History No history of previous surgery Social History Social History Household Members: None Household Members Other:: homeless Housing: Homeless Housing Other:: homeless Unable to assess alcohol history related to: Refusing to respond Alcohol intake: current Alcohol intake frequency: a few times a week Alcohol type: beer and hard liquor Comment: 1 assist to bathroom Patient Tobacco Use Status: Former Tobacco user Tobacco use type: Cigarette Smoked in Last 30 Days: Yes Second Hand Smoke Exposure: No Use of substances other than those prescribed or required for medical reasons: No Advance Directives: Yes Advance Directives on File: Yes Advance Directives Date on File: 07/03/23 service: No Physical Exam ED Vital Signs: Vital Signs - 24 hr 02/07/25 00:10 Temperature 98.9 F Pulse Rate 85 Respiratory Rate 20 Blood Pressure 121/59 L Pulse Oximetry 88 L Oxygen Delivery Method Room Air BMI result Body Mass Index 19.4 Const Other: Appearance: Alert. Oriented X3. No acute distress. Patient's seems a to be under the influence of alcohol. Eyes: Pupils equal, round and reactive to light. ENT: Pharynx normal. Neck: Normal inspection. Neck supple. No lymph nodes noted. No crepitus CVS: Normal heart rate and rhythm. Pulses normal. Normal S1 and S2 Respiratory: No respiratory distress. Breath sounds normal. No Wheezing. No rales Abdomen: Soft and nontender. No rigidity. No distention. Skin: Skin warm and dry. Normal skin color. Normal skin turgor. Extremities: Patient has bilateral chronic leg swelling +1 edema. No obvious deformities. Patient has an abrasion in his left thumb. Neuro: Oriented X 3. No motor deficit. No sensory deficit. Moving all extremities. No slurred speech. CN 2 through 12 grossly intact Psych: calm, cooperative, normal affect Medical Decision Making Medical Decision Making MDM Narrative: Per patient's nurse, it was noted that patient's oxygen saturation was in the low 2s. Patient has been seen multiple times and recently admitted for similar presentation. When patient is fully awake, his oxygen saturation improves. Patient known to be so intoxicated that his oxygen drops. Patient has been placed on 2 L nasal cannula, oxygenating 92%. Chest x-rays do not show any acute abnormalities. Sign out given to my colleague Dr. Chinchilla Differential Diagnosis Differential Diagnoses: The differential diagnosis associated with the presentation includes (Alcohol intoxication, polysubstance abuse) Independent Interpretation I performed an independent interpretation of an: Plain X-Ray Radiology Impression Discussion of test interpretation with radiology: I have reviewed the radiologist's reading. Radiologist Impression: No consolidation, pneumothorax, or effusion. Mild nonspecific interstitial prominence identified within the bilateral lungs. Heart size is at the upper limits of normal. Impression: 1. Mild nonspecific interstitial opacities identified within the bilateral lungs. Differential considerations include chronic lung changes/scarring, subtle pulmonary interstitial edema, or scattered atypical/viral infiltrates. Clinical correlation is advised. No focal pulmonary consolidation Critical Care Time Critical Care Time Critical Care Time: Yes Total Critical Care Time: 45 Attestation: I have personally provided critical care time. Time includes review of lab data, radiology results, discussion with consultants, and monitoring for potential decompensation. Intervention performed as documented. Discharge Plan Discharge Clinical Impression: Alcohol intoxication Patient Disposition: Still a Patient Prescriptions: No Action sucralfate [Carafate] 1 gram tablet 1 g PO BID Qty: 60 0RF acetaminophen 325 mg Tablet 975 mg PO Q6H PRN (Reason: Pain, Mild 1-3,Fever,Headache) Qty: 30 0RF magnesium oxide 400 mg (241.3 mg magnesium) Tablet 400 mg PO DAILY Qty: 30 0RF Deep Sea Nasal 0.65 % Aerosol,[place] 1 spray intranasal Q1H PRN (Reason: Dryness) Qty: 44 0RF lactulose 10 gram/15 mL solution 30 ml PO TID omeprazole 40 mg capsule,delayed release(DR/EC) 40 mg PO DAILY@0630 folic acid 1 mg Tablet 1 mg PO DAILY Qty: 90 0RF thiamine mononitrate (vit B1) 100 mg Tablet 100 mg PO DAILY Qty: 90 0RF Print Language: Kyrgyz
[2025-02-07 02:33] VITALS: O2SAT 96
[2025-02-07 03:32] VITALS: BP 98/47; PULSE 88; RESP 14; TEMP 36.3; O2SAT 95
--- NOTE | 2025-02-07 03:33 | PC.NURSE ---
pt change into a clean Michael, pt has bloody nose and bp on the lower side, provider aware.
[2025-02-07 05:19] VITALS: BP 110/56; PULSE 85; RESP 16; TEMP 36.7; O2SAT 92
[2025-02-07 06:13] VITALS: BP 110/56; PULSE 85; RESP 16; TEMP 36.7; O2SAT 92
--- NOTE | 2025-02-07 06:14 | PC.NURSE ---
reviewed discharge instructions with pt. pt verbalized understanding, no sign of distress.
[2025-02-07 06:15] VITALS: BP 110/56; PULSE 85; RESP 16; TEMP 36.7; O2SAT 92
== END 2025-02-07 06:15 | disposition home or self-care (01) ==
PROVIDERS: Emergency Provider Emergency Medicine
DX: F10.120 Alcohol abuse with intoxication, uncomplicated (principal); Y90.9 Presence of alcohol in blood, level not specified; M79.672 Pain in left foot; M79.671 Pain in right foot; Z59.00 Homelessness unspecified; Z87.891 Personal history of nicotine dependence; Z79.899 Other long term (current) drug therapy
CPT/HCPCS: 71045; 99283; 99284

== ENCOUNTER → 2025-02-07 00:35 | Outpatient (BNV) | payer MEDICAID, SELFPAY | PROVIDERS: Emergency Provider Emergency Medicine; Visit Provider Radiology Diagnostic Radiology | DX: R09.02 Hypoxemia (principal) | CPT/HCPCS: 71045 ==

== ENCOUNTER 2025-02-07 14:50 | Emergency (ER) | payer MEDICAID, SELFPAY ==
--- NOTE | 2025-02-07 14:56 | ED.GENADULT ---
HPI - General Adult General Chief complaint: General Medical Stated complaint: ETOH Time Seen by Provider: 02/07/25 14:53 Source: patient and EMS Mode of arrival: EMS Limitations: no limitations History of Present Illness ED Provider: MADISON Cee HPI narrative: 55-year-old male presents after going to [facility] to try to get his medicines he says he was confused he thought his medication was sent there he then requested EMS to be called so he could come to [facility] to get his medicine. He reports he drank 1 beer prior to arrival. He denies any medical complaints. Denies falls, traumas. Denies chest pain, shortness of breath, nausea, vomiting, abdominal pain, headache, vision changes, dizziness and weakness. Related Data Home Medications ?Medication ?Instructions ?Recorded ?Confirmed lactulose 10 gram/15 mL oral 30 ml PO TID 02/01/25 02/01/25 solution omeprazole 40 mg capsule,delayed 40 mg PO DAILY@0630 02/01/25 02/01/25 release Previous Rx's ?Medication ?Instructions ?Recorded acetaminophen 325 mg tablet 975 mg (3 x 325 mg) PO Q6H PRN 12/17/24 Pain, Mild 1-3,Fever,Headache #30 tabs magnesium oxide 400 mg (241.3 mg 400 mg PO DAILY #30 tabs 12/17/24 magnesium) tablet sodium chloride 0.65 % nasal spray 1 spray intranasal Q1H PRN Dryness 12/17/24 aerosol (Deep Sea Nasal) #44 mL sucralfate 1 gram tablet (Carafate) 1 g PO BID #60 tabs 12/17/24 folic acid 1 mg tablet 1 mg PO DAILY #90 tabs 02/04/25 thiamine mononitrate (vit B1) 100 100 mg PO DAILY #90 tabs 02/04/25 mg tablet Allergies Allergy/AdvReac Type Severity Reaction Status Date / Time No Known Allergies Allergy Verified 02/07/25 15:08 [No Known Allergies*] Review of Systems Review of Systems: Yes all other systems are reviewed and are negative PMFSH Past Medical History Attestation statement: The following information was validated with the patient. Source: old records reviewed and nursing notes reviewed Medical History Alcohol withdrawal syndrome Pancytopenia Alcohol abuse Thrombocytopenia Esophageal varices Alcohol use disorder Acute on chronic anemia Alcoholic liver disease Aspiration pneumonia Thrombocytopenia Malnutrition CHF (congestive heart failure) Anemia Hypomagnesemia Cirrhosis Thrombocytopenia Acute on chronic anemia CHF (congestive heart failure) Anemia Pneumonia Alcohol abuse Surgical History No history of previous surgery Social History Social History Household Members: None Household Members Other:: homeless Housing: Homeless Housing Other:: homeless Unable to assess alcohol history related to: Refusing to respond Alcohol intake: current Alcohol intake frequency: 3 or more drinks per day Alcohol type: beer Comment: 1 assist to bathroom Patient Tobacco Use Status: Former Tobacco user Tobacco use type: Cigarette Smoked in Last 30 Days: No Second Hand Smoke Exposure: No Use of substances other than those prescribed or required for medical reasons: No Advance Directives: Yes Advance Directives on File: Yes Advance Directives Date on File: 07/03/23 service: No Physical Exam ED Vital Signs: Vital Signs - 24 hr 02/07/25 15:21 Temperature 98.3 F Pulse Rate 88 Respiratory Rate 18 Blood Pressure 104/58 L Pulse Oximetry 90 L Oxygen Delivery Method Room Air BMI result Body Mass Index 19.4 vss - baseline O2 around 90% Patient denies cp, sob Appearance: Alert.? Oriented X3.? No acute distress.? Head: Normocephalic, atraumatic, no step-offs or deformities Eyes: Pupils equal, round and reactive to light.? Neck: Normal inspection.? Neck supple.? CVS: Normal heart rate and rhythm.? Pulses normal.? Respiratory: No respiratory distress.? Breath sounds normal.? Abdomen: Soft and nontender.? Skin: Skin warm and dry.? Normal skin color.? Normal skin turgor.? Extremities: No lower extremity edema.? No calf ttp. 5/5 strength to bilateral upper and lower extremities Back: No midline tenderness, no C-spine tenderness, full range of motion, no CVA tenderness bilaterally Neuro: Oriented X 3.? No motor deficit.? No sensory deficit. CN 2-12 intact Course Reevaluation(s) Reevaluation #1: I was able to speak with [facility] pharmacy, they will bring patient's prescriptions up to the bedside so he can leave with his prescriptions here today. As stated previously I did review labs from last night, unremarkable and appear to be at baseline. Patient without medical complaints. Feeling well ambulating with steady gait normal coordination. Alert and oriented x4. No falls or traumas. At this time patient to be discharged. Educated patient on diagnosis and treatment plan, answered all question, patient verbalizes understanding. At this time patient will be discharged home, advised to return with new or worsening symptoms. Educated on worrisome signs and symptoms and when to return. At this time I feel comfortable discharge home. Time: 15:04 Medical Decision Making Medical Decision Making [facility] Narrative: [id number] 55 year old male presents after going to [facility] to [facility] picker his prescription medication however when he got there he was told that they were at [facility] so he asked him to call an ambulance. He was discharged from this facility earlier this morning. He denies pain, falls or trauma Physical exam benign History and physical exam concerning for poor outpatient follow-up. Patient does report he had 1 drink prior to arrival. He appears clinically sober however. Not complaining of any medical complaints. No signs of trauma to head, neck, chest, abdomen or pelvis. Plan will speak to pharmacy and see if we can arrange for patient to get his medications today. He had laboratory studies done at midnight last night all of which were around his baseline. His BUN was slightly higher than usual however he has been tolerating p.o., will encourage p.o. hydration no need for IV fluids. His ammonia is chronically elevated however appears to be around his baseline. Plan will ensure patient gets his meds and then patient to be discharged home. Differential Diagnosis Differential Diagnoses: The differential diagnosis associated with the presentation includes (History and physical exam concerning for poor outpatient follow-up. Patient does report he had 1 drink prior to arrival. He appears clinically sober however. Not complaining of any medical complaints. No signs of trauma to head, neck, chest, abdomen or pelvis.) Admission/Observation Consideration of admission/observation: Escalation of care including admission/observation considered Lab Data [facility] Lab Attestation statement: I reviewed the patient's lab results. (Reviewed from 02/06 39) 02/07/25 15:11 02/07/25 15:11 Labs: Lab Results 02/07/25 Range/Units 15:11 WBC 2.9 L (4.8-10.8) X10*3/uL RBC 2.40 L (4.60-5.80) X10*6/uL Hgb 7.5 L (14.0-18.0) g/dl Hct 22.7 L (42.0-52.0) % MCV 94.6 (80.0-98.0) fL MCH 31.3 (27.0-33.0) pg MCHC 33.0 (31.0-36.0) g/dl RDW 14.8 (11.0-16.0) % Plt Count 66 L (160-400) X10*3/uL MPV 11.8 (9.4-12.4) fL Immature Gran % (Auto) 0.3 (0.0-0.4) % Neut % (Auto) 53.4 (45-73) % Lymph % (Auto) 31.0 (20-40) % Bond % (Auto) 10.8 (2-11) % Eos % (Auto) 3.5 (0-4) % Baso % (Auto) 1.0 (0-2) % Lymph # (Auto) 0.9 L (1.2-4.9) X10*3/uL Bond # (Auto) 0.3 (0.1-1.2) X10*3/uL Eos # (Auto) 0.1 (0.0-0.4) X10*3/uL Baso # (Auto) 0.0 (0.0-0.2) X10*3/uL Abs Immat Gran (auto) 0.01 (0.00-0.03) X10*3/uL Absolute Neuts (auto) 1.5 L (2.0-8.3) x10*3/uL Absolute Nucleated RBC 0.000 (0.0-0.012) X10*3/uL Nucleated RBC % (auto) 0.0 (0.0-0.2) /100WBC Independent Interpretation I performed an independent interpretation of an: Plain X-Ray (Impression: 1. Mild nonspecific interstitial opacities identified within the bilateral lungs. Differential considerations include chronic lung changes/scarring, subtle pulmonary interstitial edema, or scattered atypical/viral infiltrates. Clinical correlation is advised. No focal pulmonary conso) Interpretation: X-ray nonspecific interstitial opacities I do not suspect this is a pneumonia or bacterial. Patient without upper respiratory symptoms. Saturating well on room air. External Record Review External record reviewed: Inpatient record, Office record, Outpatient record, Prior outpatient labs, Prior outpatient radiology, Primary care record and Outside ED record Chronic Conditions Patient?s care impacted by: Other (see hpi ) Social Determinants Patient?s care significantly limited by Social Determinants of Health including: Inadequate housing, Low income, Alcoholism and drug addiction in family, Problems related to primary support group, Unemployment, Problems related to employment and Other Social Determinant of Health Critical Care Time Critical Care Time Critical Care Time: No Discharge Plan Discharge Clinical Impression: Medication refill Patient Disposition: Home, Self-Care Instructions: Medicine Refill (ED) Additional Instructions: Take your medications as prescribed. If you were prescribed antibiotics today, it is important that you take your medication to their entirety, do not skip any doses, do not finish them early. Follow-up with your primary care provider this week. Return to the emergency department with new or worsening symptoms. Such as fevers, chills, chest pain, shortness of breath, nausea, vomiting, dizziness, headache, vision changes, lethargy In case of emergency call 911 Prescriptions: No Action sucralfate [Carafate] 1 gram tablet 1 g PO BID Qty: 60 0RF acetaminophen 325 mg Tablet 975 mg PO Q6H PRN (Reason: Pain, Mild 1-3,Fever,Headache) Qty: 30 0RF magnesium oxide 400 mg (241.3 mg magnesium) Tablet 400 mg PO DAILY Qty: 30 0RF Deep Sea Nasal 0.65 % Aerosol,[place] 1 spray intranasal Q1H PRN (Reason: Dryness) Qty: 44 0RF lactulose 10 gram/15 mL solution 30 ml PO TID omeprazole 40 mg capsule,delayed release(DR/EC) 40 mg PO DAILY@0630 folic acid 1 mg Tablet 1 mg PO DAILY Qty: 90 0RF thiamine mononitrate (vit B1) 100 mg Tablet 100 mg PO DAILY Qty: 90 0RF Referrals: ED Physician,Generic [Physician] - 2 days Print Language: Turkmen
[2025-02-07 15:04] VITALS: BP 164/90; PULSE 88; O2SAT 90
[2025-02-07 15:06] VITALS: BMI 19.4
[2025-02-07 15:14] LABS: MANUAL DIFF FLAG NO
[2025-02-07 15:16] LABS: Eosinophils Absolute Auto 0.1 X10*3/uL (0.0-0.4); Eosinophils Percent Auto 3.5 % (0-4); Hematocrit 22.7 % (42.0-52.0); Hemoglobin 7.5 g/dl (14.0-18.0); Imm Gran Abs Auto 0.01 X10*3/uL (0.00-0.03); Imm Gran Pct Auto 0.3 % (0.0-0.4); Lymphocytes Absolute Auto 0.9 X10*3/uL (1.2-4.9); Mean Corpuscular Hemoglobin 31.3 pg (27.0-33.0); Mean Corpuscular Volume 94.6 fL (80.0-98.0); Mean Platelet Volume 11.8 fL (9.4-12.4); Monocytes Absolute Auto 0.3 X10*3/uL (0.1-1.2); Monocytes Percent Auto 10.8 % (2-11); Neutrophils Absolute Auto 1.5 x10*3/uL (2.0-8.3); Neutrophils Percent Auto 53.4 % (45-73); Red Cell Distribution Width 14.8 % (11.0-16.0); White Blood Count 2.9 X10*3/uL (4.8-10.8)
[2025-02-07 15:20] LABS: Platelet Count 66 X10*3/uL (160-400)
[2025-02-07 15:21] VITALS: BP 104/58; PULSE 88; RESP 18; TEMP 36.8; O2SAT 90
--- NOTE | 2025-02-07 15:23 | PC.NURSE ---
Brought in by EMS after police were called to [facility] because patient was argumentative with them regarding picking up medications that he believed were at [facility]. Meds in question were at [facility] and were brought up by [facility] staff and given to patient. VSS, awaiting lab results before discharge
[2025-02-07 15:34] LABS: Anion Gap 13 (12-20)
[2025-02-07 15:38] LABS: Alanine Aminotransferase 6 U/L (0-40); Albumin Level 3.6 g/dL (3.5-5.0); Aspartate Amino Transferase 33 U/L (5-37); Bilirubin Total 0.5 mg/dL (0.0-1.0); Blood Urea Nitrogen 16 mg/dL (9-16); Calcium 8.8 mg/dL (8.4-10.2); Carbon Dioxide 17 mmol/L (22-29); Chloride 113 mmol/L (96-108); Creatinine Clr Calc Pharmacy 88.1; Estimated Glomerular Filt Rate > 60; Ethanol 224 mg/dL; Glucose Random 83 mg/dL (60-115); Potassium 4.1 mmol/L (3.3-5.1); Sodium 139 mmol/L (135-145); Total Protein 7.4 g/dL (6.5-8.0)
[2025-02-07 15:43] VITALS: O2SAT 92
[2025-02-07 15:46] VITALS: BP 104/58; PULSE 88; RESP 18; TEMP 36.8; O2SAT 92
[2025-02-07 16:57] LABS: Alkaline Phosphatase 96 U/L (39-117)
== END 2025-02-07 15:47 | disposition home or self-care (01) ==
PROVIDERS: Physician Assistant; Emergency Provider Emergency Medicine
DX: Z76.0 Encounter for issue of repeat prescription (principal); F10.10 Alcohol abuse, uncomplicated; Y90.9 Presence of alcohol in blood, level not specified
CPT/HCPCS: 36415; 80053; 80307; 85025; 99283

== ENCOUNTER 2025-02-07 22:32 | Inpatient (IN) | payer MEDICAID, SELFPAY ==
--- NOTE | ~2025-02-07 | CT_ITS ---
CLINICAL HISTORY: hypoxic CT angiography chest with contrast. 3D Postprocessing. Comparison: CT/SR - CT CHEST WO IV CON - 02/01/25 02:39 EDT Findings: Motion and streak artifact limit evaluation. Cardiomegaly without significant pericardial effusion. Coronary artery calcifications. The thoracic aorta is normal caliber. No central or large proximal pulmonary emboli. Remaining pulmonary arteries are poorly opacified, not well evaluated. The visualized thyroid and mediastinum are unremarkable. Gynecomastia. Diffuse bilateral developing patchy/nodular consolidations. No significant pleural effusion or pneumothorax. Redemonstrated paraesophageal varices. Osteopenia with diffuse multilevel spondylosis. Chronic sternal body fracture. Redemonstrated stable chronic compression fracture at T8. No retropulsion. Osteopenia. IMPRESSION: Motion degraded exam. 1. No central or large proximal pulmonary emboli. Remaining pulmonary arteries are poorly opacified, not well evaluated. 2. Diffuse bilateral developing patchy/nodular consolidations. Pneumonia not excluded. This document has been electronically signed by: Randal Mendoza MD on 02/08/2025 04:12:55
--- NOTE | ~2025-02-07 | CT_ITS ---
CLINICAL HISTORY: fall, etoh CT head without contrast Comparison: CT/SR - CT HEAD/BRAIN WO IV CON - 11/30/24 01:16 EST Findings: Scattered subcortical and periventricular hypoattenuation, likely in keeping with chronic small vessel ischemic disease. Parenchymal volume loss with compensatory prominence of the ventricles and CSF spaces. No acute territorial infarction, intracranial hemorrhage, midline shift or hydrocephalus. There is no sinus or mastoid fluid. The orbits are unremarkable. There is no acute fracture. IMPRESSION: 1. No acute intracranial abnormality. 2. Additional findings as described. This document has been electronically signed by: Randal Mendoza MD on 02/08/2025 04:05:14
[2025-02-07 22:45] VITALS: BP 110/64; PULSE 85; RESP 20; TEMP 37.2; O2SAT 92
[2025-02-08] VITALS (7 sets, daily range): BP systolic 111–119; BP diastolic 50–58; PULSE 81–93; RESP 13–18; TEMP 37–37.1; O2SAT 75–98
--- NOTE | 2025-02-08 01:38 | PC.NURSE ---
pt found to be 80% room air when sleeping. pt amulated with this RN into room 18 from 18H, and was then 75% on room air after ambulation. placed onto awake overnight monitor and 2L via NC. up to 91%. MD garcia at bedside, aware.
--- NOTE | 2025-02-08 01:40 | ECG_ITS ---
Test Reason : SOB Blood Pressure : */* mmHG Vent. Rate : 89 BPM Atrial Rate : 89 BPM P-R Int : 148 ms QRS Dur : 84 ms QT Int : 398 ms P-R-T Axes : 53 27 37 degrees QTcB Int : 484 ms Normal sinus rhythm Prolonged QT Abnormal ECG When compared with ECG of 01-Feb-2025 00:57, No significant change was found Referred By: Alexandria Sweeney Electronically Signed By: STEPHANIE JARA MD
--- NOTE | 2025-02-08 01:42 | ED.GENADULT ---
HPI - General Adult General Chief complaint: General Medical Stated complaint: ETOH, BILAT ANKLE PAIN PER EMS Time Seen by Provider: 02/08/25 01:25 Source: patient and EMS Mode of arrival: EMS Limitations: other ( ETOH) History of Present Illness ED Provider: Dr. Alexandria Sweeney HPI narrative: Patient comes to the emergency room complaining of ankle pain and swelling and epistaxis. Patient frequently comes to the emergency room around this time at night intoxicated. Patient states had he drank 1 beer however, patient is clinically intoxicated. I asked the patient if he fell, patient states that he does not remember if he fell or not. Patient denies headache or neck pain. Related Data Home Medications ?Medication ?Instructions ?Recorded ?Confirmed lactulose 10 gram/15 mL oral 30 ml PO TID 02/01/25 02/01/25 solution omeprazole 40 mg capsule,delayed 40 mg PO DAILY@0630 02/01/25 02/01/25 release Previous Rx's ?Medication ?Instructions ?Recorded acetaminophen 325 mg tablet 975 mg (3 x 325 mg) PO Q6H PRN 12/17/24 Pain, Mild 1-3,Fever,Headache #30 tabs magnesium oxide 400 mg (241.3 mg 400 mg PO DAILY #30 tabs 12/17/24 magnesium) tablet sodium chloride 0.65 % nasal spray 1 spray intranasal Q1H PRN Dryness 12/17/24 aerosol (Deep Sea Nasal) #44 mL sucralfate 1 gram tablet (Carafate) 1 g PO BID #60 tabs 12/17/24 folic acid 1 mg tablet 1 mg PO DAILY #90 tabs 02/04/25 thiamine mononitrate (vit B1) 100 100 mg PO DAILY #90 tabs 02/04/25 mg tablet Allergies Allergy/AdvReac Type Severity Reaction Status Date / Time No Known Allergies Allergy Verified 02/07/25 22:47 [No Known Allergies*] Review of Systems Review of Systems: Constitutional : No Weight loss, No Fever, No Chills, No Night Sweats, No Fatigue, No Malaise ENT/Mouth : No Hearing loss, No Ear Pain, No Nasal Congestion, No Sinus Pain, No Hoarseness, No sore throat, No Rhinorrhea, No Swallowing Difficulty Eyes: No Eye Pain, No Swelling, No Redness, No Foreign Body, No Discharge, No Vision Changes Cardiovascular : No Chest Pain, No SOB, No Dyspnea on Exertion, No Orthopnea, No Edema, No Palpitations Respiratory : No Cough, No Sputum, No Wheezing, No Smoke Exposure, No Dyspnea Gastrointestinal : No Nausea, No Vomiting, No Diarrhea, No Constipation, No abdominal Pain, No Hematochezia, No Melena Genitourinary : no irregular bleeding, No Dysuria, No Urinary Frequency, No Hematuria, No Urinary Incontinence, No Urgency, No Flank Pain, No Urinary Flow Changes, No Hesitancy Musculoskeletal : No joint pain, No Myalgias, No Joint Swelling Skin : No Skin Lesions, No rash Neuro : No Weakness, No Numbness, No Paresthesias, No Loss of Consciousness, No Dizziness, No Headache Psych : No Anxiety/Panic, No Depression, No SI/HI/AH/VH, Admits to alcohol abuse Heme/Lymph: No Bruising, No Bleeding,No Lymphadenopathy Endocrine : No Polyuria, No Polydipsia, No Temperature Intolerance PMFSH Past Medical History Medical History Alcohol withdrawal syndrome Pancytopenia Alcohol abuse Thrombocytopenia Esophageal varices Alcohol use disorder Acute on chronic anemia Alcoholic liver disease Aspiration pneumonia Thrombocytopenia Malnutrition CHF (congestive heart failure) Anemia Hypomagnesemia Cirrhosis Thrombocytopenia Acute on chronic anemia CHF (congestive heart failure) Anemia Pneumonia Alcohol abuse Surgical History No history of previous surgery Social History Social History Household Members: None Household Members Other:: homeless Housing: Homeless Housing Other:: homeless Unable to assess alcohol history related to: Refusing to respond Alcohol intake: current Alcohol intake frequency: 3 or more drinks per day Alcohol type: beer Comment: 1 assist to bathroom Patient Tobacco Use Status: Former Tobacco user Tobacco use type: Cigarette Second Hand Smoke Exposure: No Use of substances other than those prescribed or required for medical reasons: Unknown Advance Directives: Yes Advance Directives on File: Yes Advance Directives Date on File: 07/03/23 service: No Physical Exam ED Vital Signs: Vital Signs - 24 hr 02/07/25 22:45 02/08/25 01:39 02/08/25 01:39 Temperature 98.9 F Pulse Rate 85 Respiratory Rate 20 Blood Pressure 110/64 Pulse Oximetry 92 80 L 75 L Oxygen Delivery Method Room Air Room Air Room Air Oxygen Flow Rate 02/08/25 01:39 Temperature Pulse Rate 88 Respiratory Rate 17 Blood Pressure Pulse Oximetry 92 Oxygen Delivery Method Nasal Cannula Oxygen Flow Rate 2 BMI result Body Mass Index 20.0 Const Other: Appearance: Alert. Oriented X3. No acute distress. patient is clinically intoxicated. Calm, cooperative but unsteady on his feet Eyes: Pupils equal, round and reactive to light. ENT: Pharynx normal. epistaxis in the right nostril, bleeding controlled Neck: Normal inspection. Neck supple. No lymph nodes noted. No crepitus CVS: Normal heart rate and rhythm. Pulses normal. Normal S1 and S2 Respiratory: No respiratory distress. Breath sounds normal. No Wheezing. No rales Abdomen: Soft and nontender. No rigidity. No distention. Skin: Skin warm and dry. Normal skin color. Normal skin turgor. Extremities: +2 pitting edema bilaterally No Lacerations. No Rash Neuro: Oriented X 3. No motor deficit. No sensory deficit. Moving all extremities. No slurred speech. CN 2 through 12 grossly intact Psych: calm, cooperative, intoxicated Course Course Course Narrative: patient initially came as alcohol intoxication. However, when patient sleeps, his oxygen drops to the low 80s on room air. Patient was helped up from the chair where he was in the hallway and walked to room with the monitor, his oxygen saturation dropped to 75% on room air. Even while patient was awake and alert, oxygen saturation stayed in the low 80s for a few minutes. Patient was put on supplemental oxygen which improved the O2 to 92%. of note, patient comes often to the emergency room intoxicated. It is well-known that patient's oxygen saturation dropped to the 80s while he is asleep. With a lot of encouragement to take big breaths, patient eventually increases his O2 to the 90s. However, this time it dropped quite a bit to the 70s. Unfortunately, patient is homeless, does not take good care of himself, alcohol dependent. Not compliant with medications. I am not sure how we could help him on the long run. Ideally, patient would need a sleep study but is very likely that patient will not show up to the sleep study. Also, patient is homeless and a prescription of O2 vs CPAP for night time will be a problem All of patient's labs pending given the patient's recurrent episodes of hypoxia , we will order a CT for PE. I discussed the above-mentioned with Dr. Romero Medical Decision Making Differential Diagnosis Differential Diagnoses: The differential diagnosis associated with the presentation includes ( Pneumonia, CHF, PE, sleep apnea) Admission/Observation Consideration of admission/observation: Escalation of care including admission/observation considered Critical Care Time Critical Care Time Critical Care Time: Yes Total Critical Care Time: 45 Attestation: I have personally provided critical care time. Time includes review of lab data, radiology results, discussion with consultants, and monitoring for potential decompensation. Intervention performed as documented. Discharge Plan Discharge Clinical Impression: Hypoxic Patient Disposition: Still a Patient Prescriptions: No Action sucralfate [Carafate] 1 gram tablet 1 g PO BID Qty: 60 0RF acetaminophen 325 mg Tablet 975 mg PO Q6H PRN (Reason: Pain, Mild 1-3,Fever,Headache) Qty: 30 0RF magnesium oxide 400 mg (241.3 mg magnesium) Tablet 400 mg PO DAILY Qty: 30 0RF Deep Sea Nasal 0.65 % Aerosol,[place] 1 spray intranasal Q1H PRN (Reason: Dryness) Qty: 44 0RF lactulose 10 gram/15 mL solution 30 ml PO TID omeprazole 40 mg capsule,delayed release(DR/EC) 40 mg PO DAILY@0630 folic acid 1 mg Tablet 1 mg PO DAILY Qty: 90 0RF thiamine mononitrate (vit B1) 100 mg Tablet 100 mg PO DAILY Qty: 90 0RF Print Language: Bulgarian
[2025-02-08] MEDS: Furosemide 40 MG/4 ML VIAL IVPUSH (01:55)
[2025-02-08 01:56] LABS: Venous Blood Gas Refer to POC result
[2025-02-08 01:58] LABS: Basophils Percent Auto 1.1 % (0-2); Eosinophils Absolute Auto 0.1 X10*3/uL (0.0-0.4); Eosinophils Percent Auto 3.9 % (0-4); Hematocrit 23.2 % (42.0-52.0); Hemoglobin 7.5 g/dl (14.0-18.0); Imm Gran Abs Auto 0.01 X10*3/uL (0.00-0.03); Imm Gran Pct Auto 0.4 % (0.0-0.4); Lymphocytes Absolute Auto 1.1 X10*3/uL (1.2-4.9); Lymphocytes Percent Auto 40.3 % (20-40); MANUAL DIFF FLAG NO; Mean Corpuscular HGB Conc 32.3 g/dl (31.0-36.0); Mean Corpuscular Hemoglobin 30.9 pg (27.0-33.0); Mean Corpuscular Volume 95.5 fL (80.0-98.0); Mean Platelet Volume 11.2 fL (9.4-12.4); Monocytes Absolute Auto 0.3 X10*3/uL (0.1-1.2); Monocytes Percent Auto 11.3 % (2-11); Neutrophils Absolute Auto 1.2 x10*3/uL (2.0-8.3); Red Blood Count 2.43 X10*6/uL (4.60-5.80); Red Cell Distribution Width 14.6 % (11.0-16.0); White Blood Count 2.8 X10*3/uL (4.8-10.8)
[2025-02-08 01:59] LABS: Platelet Count 62 X10*3/uL (160-400)
[2025-02-08 02:01] LABS: VBG Base Excess -4.3 mmol/L; VBG HCO3 18 mmol/L (22-26); VBG pCO2 28 mmHg; VBG pH 7.43 (7.32-7.43); VBG pO2 99 mmHg
[2025-02-08 02:06] LABS: INTERNATIONAL NORM RATIO 1.3 (0.9-1.1); Prothrombin Time 15.3 SEC (10.9-12.4)
[2025-02-08 02:07] LABS: Ammonia 65 umol/L (13-55)
[2025-02-08 02:17] LABS: B Type Natriuretic Peptide 147 pg/mL (<100)
[2025-02-08 02:21] LABS: Troponin-I High Sensitivity < 2.7 ng/L (<3.5-35.0)
[2025-02-08 02:22] LABS: Alanine Aminotransferase 9 U/L (0-40); Albumin Level 3.5 g/dL (3.5-5.0); Alkaline Phosphatase 86 U/L (39-117); Anion Gap 13 (12-20); Aspartate Amino Transferase 33 U/L (5-37); Bilirubin Direct 0.2 mg/dL (0.0-0.5); Bilirubin Total 0.4 mg/dL (0.0-1.0); Blood Urea Nitrogen 17 mg/dL (9-16); Calcium 8.5 mg/dL (8.4-10.2); Carbon Dioxide 18 mmol/L (22-29); Chloride 113 mmol/L (96-108); Creatinine Clr Calc Pharmacy 76.5; Estimated Glomerular Filt Rate > 60; Ethanol 229 mg/dL; Glucose Random 95 mg/dL (60-115); Sodium 140 mmol/L (135-145); Total Protein 7.1 g/dL (6.5-8.0)
[2025-02-08 02:34] LABS: Influenza A PCR NEGATIVE (Negative); Influenza B PCR NEGATIVE (Negative); Resp Syncy Virus RNA Qual PCR NEGATIVE (Negative); SARS COV2 PCR INHOUSE NEGATIVE (Negative)
[2025-02-08 02:54] LABS: Amphetamine Screen Urine Not Detected (Not Detect); Barbiturates, Urine POSITIVE (Not Detect); Benzodiazepines Screen Urine Not Detected (Not Detect); Buprenorphine Scr Not Detected (Not Detect); Cannabinoid Screen Urine Not Detected (Not Detect); Cocaine Screen Urine Not Detected (Not Detect); Fentanyl, urine Not Detected (Not Detect); Methadone Screen, Urine Not Detected (Not Detect); Opiate Screen Urine Not Detected (Not Detect); Oxycodone Screen Urine Not Detected (Not Detect); Phencyclidine Screen Urine Not Detected (Not Detect)
[2025-02-08] MEDS: iohexoL 350 MG/ML 100 ML INFUS..BTL 65 ML IV (03:09)
--- NOTE | 2025-02-08 06:19 | PC.NURSE ---
pt trialed off of O2. down to 87% on room air while sleeping/resting. MD Romero aware
--- NOTE | 2025-02-08 09:26 | PC.NURSE ---
Patient was sleeping oxygen was off oxygen saturation dropped to 84% applied 2l via nasal cannula.
--- NOTE | 2025-02-08 15:55 | PC.NURSE ---
Patient was off his oxygen O2 at dropped to 84% applied 2L via nasal cannula.
[2025-02-08] MEDS: Albuterol Sulfate 2.5 MG, Albuterol/Iprat 2.5/0.5MG 3 ML 3 ML INHALE (16:04)
--- NOTE | 2025-02-08 17:54 | PC.NURSE ---
Patient ambulated without oxygen dropped to low 80%. Will notify Dr. Beltran.
--- NOTE | 2025-02-08 18:09 | PC.NURSE ---
Patient notified by Dr. Del Rosario he has to stay because he needs oxygen. Patient is amenable to staying.
[2025-02-08] MEDS: Thiamine HCL 200 MG in 0.9 % Sodium Chloride 100 ML 204 MG IV (18:16)
[2025-02-08] MEDS: Piperacillin Sodium/Tazobactam 3.375 GM in 0.9 % Sodium Chloride 50 ML IV (18:35)
[2025-02-08 18:39] LABS: MANUAL DIFF FLAG NO
[2025-02-08 18:40] LABS: Basophils Percent Auto 0.7 % (0-2); Eosinophils Absolute Auto 0.1 X10*3/uL (0.0-0.4); Eosinophils Percent Auto 1.8 % (0-4); Hematocrit 24.8 % (42.0-52.0); Hemoglobin 7.9 g/dl (14.0-18.0); Imm Gran Abs Auto 0.01 X10*3/uL (0.00-0.03); Imm Gran Pct Auto 0.4 % (0.0-0.4); Lymphocytes Absolute Auto 0.6 X10*3/uL (1.2-4.9); Lymphocytes Percent Auto 21.5 % (20-40); Mean Corpuscular HGB Conc 31.9 g/dl (31.0-36.0); Mean Corpuscular Hemoglobin 30.9 pg (27.0-33.0); Mean Corpuscular Volume 96.9 fL (80.0-98.0); Mean Platelet Volume 11.3 fL (9.4-12.4); Monocytes Absolute Auto 0.4 X10*3/uL (0.1-1.2); Monocytes Percent Auto 12.7 % (2-11); Neutrophils Absolute Auto 1.8 x10*3/uL (2.0-8.3); Neutrophils Percent Auto 62.9 % (45-73); Red Blood Count 2.56 X10*6/uL (4.60-5.80); Red Cell Distribution Width 14.6 % (11.0-16.0); White Blood Count 2.8 X10*3/uL (4.8-10.8)
[2025-02-08 18:41] LABS: Platelet Count 60 X10*3/uL (160-400)
[2025-02-08 18:45] LABS: VBG HCO3 22 mmol/L (22-26); VBG pCO2 31 mmHg; VBG pH 7.45 (7.32-7.43); VBG pO2 43 mmHg
[2025-02-08 18:46] LABS: Venous Blood Gas Refer to POC result
[2025-02-08 18:57] LABS: Alanine Aminotransferase 7 U/L (0-40); Albumin Level 3.5 g/dL (3.5-5.0); Alkaline Phosphatase 95 U/L (39-117); Anion Gap 11 (12-20); Aspartate Amino Transferase 31 U/L (5-37); Bilirubin Total 0.5 mg/dL (0.0-1.0); Blood Urea Nitrogen 22 mg/dL (9-16); Calcium 8.7 mg/dL (8.4-10.2); Carbon Dioxide 22 mmol/L (22-29); Chloride 113 mmol/L (96-108); Creatinine Clr Calc Pharmacy 71.3; Estimated Glomerular Filt Rate > 60; Glucose Random 106 mg/dL (60-115); Potassium 3.6 mmol/L (3.3-5.1); Sodium 142 mmol/L (135-145); Total Protein 7.2 g/dL (6.5-8.0)
--- NOTE | 2025-02-08 18:58 | PHA.MEDREC ---
Addendum entered by Bennie Mosquera 02/10/25 11:59: reviewed Addendum entered by Arleth Calles 02/10/25 10:40: Called [facility] pharmacy to confirm med list. [facility] confirmed Flic Acid 1 mg and Vitamin B-1 100 mg Addendum entered by Doris Rose RPh 02/08/25 19:31: Med rec was reviewed by [facility]. Original Note: Pharmacy Consult ? Medication Reconciliation Pharmacy has completed the medication reconciliation. Patient does not know the names of his medications. Used discharge papers and claims to confirm. He picks up at [facility] outpatient pharmacy, they open on Monday. If patient is still here we can confirm if there are changes and update med list accordingly.
[2025-02-08 18:59] LABS: Lactic Acid 2.9 mmol/L (0.5-2.0)
--- NOTE | 2025-02-08 19:00 | PM.IMHP ---
History of Present Illness Date of Service: 02/08/25 Attending physician on admission: Rolan Baker Chief Complaint: ankle pain 55-year-old male with pertinent history of alcohol use disorder with alcoholic cirrhosis, gastroesophageal reflux disease presented to the ED early this morning with complaints of ankle pain. Upon further questioning, he states that while walking, he experiences pain and numbness and tingling in his feet that has been ongoing for several days. Denies any pain in the legs. He did arrive intoxicated and has a history of recurrent ER visits and hospitalization for intoxication alcohol withdrawal. He has also had multiple admissions for aspiration pneumonia with hypoxia as well as hepatic encephalopathy. The patient does not use home O2. 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 The patient is a limited historian. Per ED provider, the patient desaturated into the 80s while sleeping as well as when ambulating with oximetry in the 70s. This afternoon, patient was requiring supplemental O2 at rest with oximetry 90% on 2 L. in the ED, he has been afebrile, blood pressure stable. The patient has chronic pancytopenia, consistent with baseline. Renal function baseline, electrolyte levels normal except for chloride 113 which again is chronic. Lactic acid 2.9. Ammonia level 65 the patient does not appear encephalopathic. Troponin undetectable. BNP 147. Urine tox screen positive for barbiturates. Negative for COVID-19, RSV, influenza. CTA of the chest negative for any large proximal pulmonary emboli but does show diffuse bilateral developing patchy/nodular consolidations concerning for pneumonia. Head CT negative for any acute intracranial abnormality. EKG shows NSR, rate 89 without any acute ischemic changes, QTC 484. Review of Systems Review of Systems: Yes all other systems are reviewed and are negative [facility] Medical History Pneumonia Alcohol withdrawal syndrome Pancytopenia Alcohol abuse Thrombocytopenia Esophageal varices Alcohol use disorder Acute on chronic anemia Alcoholic liver disease Aspiration pneumonia Thrombocytopenia Malnutrition CHF (congestive heart failure) Anemia Hypomagnesemia Cirrhosis Thrombocytopenia Acute on chronic anemia CHF (congestive heart failure) Anemia Alcohol abuse Surgical History No history of previous surgery Social History Household Members: None Household Members Other:: homeless Housing: Homeless Housing Other:: homeless Unable to assess alcohol history related to: Refusing to respond Alcohol intake: current Alcohol intake frequency: 3 or more drinks per day Alcohol type: beer Comment: 1 assist to bathroom Patient Tobacco Use Status: Former Tobacco user Tobacco use type: Cigarette Second Hand Smoke Exposure: No Use of substances other than those prescribed or required for medical reasons: Unknown Advance Directives: Yes Advance Directives on File: Yes Advance Directives Date on File: 07/03/23 service: No Meds Allergies Allergy/AdvReac Type Severity Reaction Status Date / Time No Known Allergies Allergy Verified 02/07/25 22:47 [No Known Allergies*] Active Medications: Current Medications Sodium Chloride (Ns) 250 mls @ 250 mls/hr IV .Q1H ONE Stop: 02/08/25 19:58 Pharmacy Consult (Consult Rx Etoh Phenob Im/Po) 1 each MISCELLANE ONCE PRN; Protocol PRN Reason: Consult order Phenobarbital (Phenobarbital 15 Mg Tablet) 45 mg PO BID JOSE MANUEL; Protocol Stop: 02/10/25 21:01 Phenobarbital (Phenobarbital 30 Mg Tablet) 30 mg PO BID JOSE MANUEL; Protocol Stop: 02/12/25 21:01 Phenobarbital (Phenobarbital 30 Mg Tablet) 30 mg PO DAILY JOSE MANUEL; Protocol Stop: 02/14/25 09:01 Phenobarbital Sodium (Phenobarbital Sodium 130 Mg/Ml Im Once) 131 mg IM ONCE ONE; Protocol Stop: 02/08/25 19:01 Phenobarbital Sodium (Phenobarbital Sodium 130 Mg/Ml Vial Im Q3hx2) 98 mg IM Q3H JOSE MANUEL; Protocol Stop: 02/09/25 01:01 Home Medications ?Medication ?Instructions ?Recorded ?Confirmed ?Last Taken ?Type lactulose 10 gram/15 mL oral 30 ml PO TID 02/01/25 02/08/25 Unknown History solution omeprazole 40 mg capsule,delayed 40 mg PO DAILY@0630 02/01/25 02/08/25 Unknown History release Physical Exam Vital Signs and Narrative: Vital Signs: Last Vital Signs Temp 98.6 F 02/08/25 15:49 Pulse 92 02/08/25 16:04 Resp 17 02/08/25 16:04 BP 113/58 L 02/08/25 15:49 Pulse Ox 91 L 02/08/25 15:49 O2 Del Method Nasal Cannula 02/08/25 15:49 O2 Flow Rate 2 02/08/25 15:49 BMI result Body Mass Index 20.0 Constitutional - Awake and Alert, No apparent distress Eyes - PERRLA, EOMI Cardiovascular - S1S2, RRR, No edema Respiratory - Normal lung expansion, Normal respiratory effort, No respiratory distress, CTA bilaterally Gastrointestinal - NT / ND; +BS; No rebound or guarding Extremities - no calf tenderness bilaterally, no swelling Skin - Warm/Dry Neurological - Alert & oriented x3, CN II-XII in tact, sensation in tact. Very tremulous Psychological - Appropriate affect Results Labs 02/08/25 18:30 02/08/25 18:30 Labs: Laboratory Results - last 24 hr 02/08/25 02/08/25 02/08/25 01:52 01:56 02:29 MCV 95.5 MCH 30.9 MCHC 32.3 RDW 14.6 Plt Count 62 L MPV 11.2 Immature Gran % (Auto) 0.4 Neut % (Auto) 43.0 L Lymph % (Auto) 40.3 H [place] % (Auto) 11.3 H Eos % (Auto) 3.9 Baso % (Auto) 1.1 Lymph # (Auto) 1.1 L [place] # (Auto) 0.3 Eos # (Auto) 0.1 Baso # (Auto) 0.0 Abs Immat Gran (auto) 0.01 Absolute Neuts (auto) 1.2 L Absolute Nucleated RBC 0.000 Nucleated RBC % (auto) 0.0 PT 15.3 H INR 1.3 H VBG pH 7.43 VBG pCO2 28 VBG pO2 99 VBG HCO3 18 L VBG O2 Saturation Not Reportable VBG Base Excess -4.3 Anion Gap 13 Estim Creat Clear Calc 76.5 Estimated GFR > 60 Random Glucose 95 Lactic Acid Calcium 8.5 Total Bilirubin 0.4 Direct Bilirubin 0.2 AST 33 ALT 9 Alkaline Phosphatase 86 Ammonia 65 H B-Natriuretic Peptide 147 H Total Protein 7.1 Albumin 3.5 Urine Opiates Screen Not Detected Ur Buprenorphine Scrn Not Detected Ur Oxycodone Screen Not Detected Urine Methadone Screen Not Detected Urine Fentanyl Screen Not Detected Ur Barbiturates Screen POSITIVE H Ur Phencyclidine Scrn Not Detected Ur Amphetamines Screen Not Detected U Benzodiazepines Scrn Not Detected Urine Cocaine Screen Not Detected U Marijuana (THC) Screen Not Detected Ethyl Alcohol 229 Influenza Type A (PCR) NEGATIVE Influenza Type B (PCR) NEGATIVE RSV RNA Qual (PCR) NEGATIVE SARS-CoV-2 RNA (RT-PCR) NEGATIVE 02/08/25 02/08/25 18:30 18:41 MCV 96.9 MCH 30.9 MCHC 31.9 RDW 14.6 Plt Count 60 L MPV 11.3 Immature Gran % (Auto) 0.4 Neut % (Auto) 62.9 Lymph % (Auto) 21.5 [place] % (Auto) 12.7 H Eos % (Auto) 1.8 Baso % (Auto) 0.7 Lymph # (Auto) 0.6 L [place] # (Auto) 0.4 Eos # (Auto) 0.1 Baso # (Auto) 0.0 Abs Immat Gran (auto) 0.01 Absolute Neuts (auto) 1.8 L Absolute Nucleated RBC 0.000 Nucleated RBC % (auto) 0.0 PT INR VBG pH 7.45 H VBG pCO2 31 VBG pO2 43 VBG HCO3 22 VBG O2 Saturation 66.0 VBG Base Excess -1.0 Anion Gap 11 L Estim Creat Clear Calc 71.3 Estimated GFR > 60 Random Glucose 106 Lactic Acid 2.9 H* Calcium 8.7 Total Bilirubin 0.5 Direct Bilirubin AST 31 ALT 7 Alkaline Phosphatase 95 Ammonia B-Natriuretic Peptide Total Protein 7.2 Albumin 3.5 Urine Opiates Screen Ur Buprenorphine Scrn Ur Oxycodone Screen Urine Methadone Screen Urine Fentanyl Screen Ur Barbiturates Screen Ur Phencyclidine Scrn Ur Amphetamines Screen U Benzodiazepines Scrn Urine Cocaine Screen U Marijuana (THC) Screen Ethyl Alcohol Influenza Type A (PCR) Influenza Type B (PCR) RSV RNA Qual (PCR) SARS-CoV-2 RNA (RT-PCR) Assessment and Plan (1) Hypoxia: Status: Acute (2) Alcohol abuse: Status: Acute (3) Pneumonia: Status: Acute Plan 55-year-old male with pertinent history of alcohol use disorder with alcoholic cirrhosis, gastroesophageal reflux disease admitted for acute alcohol withdrawal and acute pneumonia wt acute hypoxemic respiratory failure. Acute alcohol withdrawal IV thiamine and folic acid Monitor on CIWA Continue phenobarbital per protocol Addiction medicine consult Bilateral pneumonia with acute hypoxemic respiratory failure Possibly hospital-acquired given 3 recent admissions in the last 2 months IV vancomycin and Zosyn Strep pneumo antigen, Legionella antigen, sputum culture, and MRSA nasal swab pending Continue supplemental O2, wean as tolerated Follow CBC, cultures Acute lactic acidosis Related to alcohol use, no severe sepsis Alcoholic cirrhosis complicated by pancytopenia, coagulopathy, history of hepatic encephalopathy Counseled on alcohol cessation Continue lactulose GERD Omeprazole DVT prophylaxis- SCPs Full code Patient requires inpatient stay at least 2 midnights for management of acute alcohol withdrawal on phenobarbital per protocol requiring close monitoring of CIWA as well as bilateral pneumonia with acute hypoxemic respiratory failure with recent hospitalization necessitating broad coverage with antibiotics as well as supplemental O2 and monitoring of blood cultures Quality Stroke Does the patient have a stroke diagnosis?: No VTE Prior VTE?: No VTE Risk Level:: Medical - moderate - high VTE Device Contraindication: N/A - Device Ordered VTE Drug Contraindication: Treatment Not Indicated
[2025-02-08] MEDS: PHENobarbitaL sodium 130 MG/ML IM ONCE 131 MG IM (19:27)
[2025-02-08] MEDS: 0.9 % Sodium Chloride 250 ML IV (19:31)
[2025-02-08 20:37] LABS: Reflex Lactate? Lactic Acid Added
[2025-02-08] MEDS: vancomycin HCL 1,250 MG in 0.9 % Sodium Chloride 250 ML 166.67 MG IV (20:52)
[2025-02-08] MEDS: Lactulose 20 GM/30 ML SOLUTION PO (21:38)
[2025-02-08] MEDS: PHENobarbitaL sodium 130 MG/ML VIAL IM Q3Hx2 98 MG IM (21:40)
[2025-02-08] MEDS: 0.9 % Sodium Chloride Flush 3 ML SYRINGE IVFLUSH (21:40)
--- NOTE | 2025-02-08 22:23 | PHA.PROG ---
Admission Date/Time: February 08, 2025 18:52 Indication: RESPIRATORY Weight in k.431 kg Adjusted body weight in Kg: Waves body weight in Kg: Obesity Dosing Indication % IBW: Serum Creatinine - Last 168 Hours 02/08/25 02/08/25 01:52 18:30 Creatinine 0.83 0.89 Estimated CrCl and GFR - Last 168 Hours 02/08/25 02/08/25 01:52 18:30 Estim Creat Clear Calc 76.5 71.3 Estimated GFR > 60 > 60 Vancomycin Loading Dose: 1250 MG Current Vancomycin Dosing Regimen: 750 MG Q12H Vancomycin Monitoring using AUC goal of 400 - 600 range with trough as surrogate marker: ERQ=407 TROUGH=15.5 Date and Time for next Vancomycin Level to be drawn: 02/09/25 @1900 Pharmacist Comments on Vancomycin Plan: Vancomycin dosing will take advantage of [employer] as a clinical decision support tool that uses Bayesian modeling to calculate individual patient's pharmacokinetic parameters and forecast the patient's drug concentration time course with the target goal AUC 24 range of 400 - 600 mg/L/hr.
[2025-02-08] MEDS: Piperacillin Sodium/Tazobactam 4.5 GM in 0.9 % Sodium Chloride 100 ML IV (23:18)
[2025-02-09] MEDS: PHENobarbitaL sodium 130 MG/ML VIAL IM Q3Hx2 98 MG IM (01:18)
[2025-02-09 04:00] VITALS: BP 116/58; PULSE 88; RESP 20; TEMP 37.2; O2SAT 92
[2025-02-09] MEDS: Omeprazole 40 MG CAPSULE.DR PO (05:30)
[2025-02-09] MEDS: Piperacillin Sodium/Tazobactam 4.5 GM in 0.9 % Sodium Chloride 100 ML IV ×3 (05:32→17:59)
[2025-02-09 06:04] LABS: MANUAL DIFF FLAG NO
[2025-02-09 06:07] LABS: Eosinophils Absolute Auto 0.1 X10*3/uL (0.0-0.4); Eosinophils Percent Auto 2.3 % (0-4); Hematocrit 23.1 % (42.0-52.0); Hemoglobin 7.5 g/dl (14.0-18.0); Imm Gran Abs Auto 0.01 X10*3/uL (0.00-0.03); Imm Gran Pct Auto 0.3 % (0.0-0.4); Lymphocytes Absolute Auto 0.7 X10*3/uL (1.2-4.9); Lymphocytes Percent Auto 22.8 % (20-40); Mean Corpuscular HGB Conc 32.5 g/dl (31.0-36.0); Mean Corpuscular Hemoglobin 31.3 pg (27.0-33.0); Mean Corpuscular Volume 96.3 fL (80.0-98.0); Mean Platelet Volume 11.9 fL (9.4-12.4); Monocytes Absolute Auto 0.3 X10*3/uL (0.1-1.2); Monocytes Percent Auto 10.7 % (2-11); Neutrophils Absolute Auto 1.9 x10*3/uL (2.0-8.3); Neutrophils Percent Auto 62.9 % (45-73); Red Cell Distribution Width 14.6 % (11.0-16.0); White Blood Count 3.1 X10*3/uL (4.8-10.8)
[2025-02-09 06:10] LABS: Platelet Count 57 X10*3/uL (160-400)
[2025-02-09 06:22] LABS: Anion Gap 12 (12-20); Blood Urea Nitrogen 16 mg/dL (9-16); Calcium 8.5 mg/dL (8.4-10.2); Carbon Dioxide 19 mmol/L (22-29); Chloride 112 mmol/L (96-108); Creatinine Clr Calc Pharmacy 80.3; Estimated Glomerular Filt Rate > 60; Glucose Random 89 mg/dL (60-115); Potassium 3.5 mmol/L (3.3-5.1); Sodium 139 mmol/L (135-145)
[2025-02-09 08:00] VITALS: BP 107/53; PULSE 79; RESP 17; TEMP 37.1; O2SAT 92
--- NOTE | 2025-02-09 08:41 | P.PNIM_ITS ---
Subjective Subjective Date of Service: 02/09/25 Interval History: seen and evaluated more alert and interactive having bowel movement no other events Review of Systems Review of Systems: Yes all other systems are reviewed and are negative Physical Exam 2 Vital Signs: Vital Signs: Last Vital Signs Temp 98.7 F 02/09/25 08:00 Pulse 79 02/09/25 08:00 Resp 17 02/09/25 08:00 BP 107/53 L 02/09/25 08:00 Pulse Ox 92 02/09/25 08:00 O2 Del Method Nasal Cannula 02/09/25 08:00 O2 Flow Rate 2 02/09/25 08:00 BMI result Body Mass Index 20.0 Const: Other: Constitutional : interactive, not in distress Cardiovascular : no JVP, no lower extremity edema Respiratory : bilateral chest movement, not in resp distress Gastrointestinal: soft, lax, Non tender, mild distention Skin : Warm, Dry Neurological : Alert & oriented , No focal deficit Objective Data Active Medications Acetaminophen (Acetaminophen 325 Mg Tablet) 650 mg PO Q6H PRN PRN Reason: Pain, Mild 1-3,fever,headache Calcium Carbonate (Calcium Carbonate 750 Mg Tab.Chew) 750 mg PO Q4H PRN PRN Reason: Heartburn Thiamine HCl 100 mg/ Sodium (Chloride) 101 mls @ 202 mls/hr IV DAILY [facility] Folic Acid 1 mg/ Sodium (Chloride) 50.2 mls @ 100.4 mls/hr IV DAILY [facility] Piperacillin Sod/Tazobactam (Sod 4.5 gm/ Sodium Chloride) 100 mls @ 200 mls/hr IV Q6H [facility] Last Infusion: 02/09/25 06:18 Dose: Infused Documented By: VANESSA Vancomycin HCl 750 mg/ Sodium (Chloride) 265 mls @ 265 mls/hr IV Q12H [facility] Lactulose (Lactulose 20 Gm/30 Ml Solution) 20 gm PO TID [facility] Last Admin: 02/08/25 21:38 Dose: 20 gm Documented By: VANESSA Magnesium Hydroxide (Milk Of Magnesia 30 Ml Oral.Susp) 30 ml PO DAILY PRN PRN Reason: Constipation Magnesium Oxide (Magnesium Oxide 400 Mg Tablet) 400 mg PO DAILY [facility] Melatonin (Melatonin 3 Mg Tablet) 6 mg PO BEDTIME PRN PRN Reason: Insomnia Omeprazole (Omeprazole 40 Mg Capsule.Dr) 40 mg PO DAILY@0630 [facility] Last Admin: 02/09/25 05:30 Dose: 40 mg Documented By: VANESSA Ondansetron HCl (Ondansetron Hcl 4 Mg/2 Ml Vial) 4 mg IVPUSH Q8H PRN PRN Reason: Nausea and Vomiting Pharmacy Consult (Consult Rx Etoh Phenob Im/Po) 1 each MISCELLANE ONCE PRN; Protocol PRN Reason: Consult order Pharmacy Consult (Consult Rx Vancomycin Dosing) 1 each MISCELLANE DAILY PRN PRN Reason: Consult order Phenobarbital (Phenobarbital 15 Mg Tablet) 45 mg PO BID [facility]; Protocol Stop: 02/10/25 21:01 Phenobarbital (Phenobarbital 30 Mg Tablet) 30 mg PO BID [facility]; Protocol Stop: 02/12/25 21:01 Phenobarbital (Phenobarbital 30 Mg Tablet) 30 mg PO DAILY [facility]; Protocol Stop: 02/14/25 09:01 Sodium Chloride (0.9 % Sodium Chloride Flush 3 Ml Syringe) [facility] Last Admin: 02/08/25 21:40 Dose: 3 ml Documented By: VANESSA Sodium Chloride (Sodium Chloride 0.65 % Nasal 44 Ml Sprbtl) 1 spray NOSTRIL-B Q1H PRN PRN Reason: Dryness Sucralfate (Sucralfate 1 Gm Tablet) 1 gm PO BID [facility] Labs 02/09/25 05:30 02/09/25 05:30 Labs: Laboratory Results - last 24 hr 02/08/25 02/08/25 02/08/25 18:30 18:41 21:02 MCV 96.9 MCH 30.9 MCHC 31.9 RDW 14.6 Plt Count 60 L MPV 11.3 Immature Gran % (Auto) 0.4 Neut % (Auto) 62.9 Lymph % (Auto) 21.5 [place] % (Auto) 12.7 H Eos % (Auto) 1.8 Baso % (Auto) 0.7 Lymph # (Auto) 0.6 L [place] # (Auto) 0.4 Eos # (Auto) 0.1 Baso # (Auto) 0.0 Abs Immat Gran (auto) 0.01 Absolute Neuts (auto) 1.8 L Absolute Nucleated RBC 0.000 Nucleated RBC % (auto) 0.0 VBG pH 7.45 H VBG pCO2 31 VBG pO2 43 VBG HCO3 22 VBG O2 Saturation 66.0 VBG Base Excess -1.0 Anion Gap 11 L Estim Creat Clear Calc 71.3 Estimated GFR > 60 Random Glucose 106 Lactic Acid 2.9 H* Lactic Acid F/U @ 2Hr 2.0 Calcium 8.7 Total Bilirubin 0.5 AST 31 ALT 7 Alkaline Phosphatase 95 Total Protein 7.2 Albumin 3.5 Blood Type B Positive Antibody Screen NEGATIVE Crossmatch ([facility]) See Detail 02/09/25 05:30 MCV 96.3 MCH 31.3 MCHC 32.5 RDW 14.6 Plt Count 57 L MPV 11.9 Immature Gran % (Auto) 0.3 Neut % (Auto) 62.9 Lymph % (Auto) 22.8 [place] % (Auto) 10.7 Eos % (Auto) 2.3 Baso % (Auto) 1.0 Lymph # (Auto) 0.7 L [place] # (Auto) 0.3 Eos # (Auto) 0.1 Baso # (Auto) 0.0 Abs Immat Gran (auto) 0.01 Absolute Neuts (auto) 1.9 L Absolute Nucleated RBC 0.000 Nucleated RBC % (auto) 0.0 VBG pH VBG pCO2 VBG pO2 VBG HCO3 VBG O2 Saturation VBG Base Excess Anion Gap 12 Estim Creat Clear Calc 80.3 Estimated GFR > 60 Random Glucose 89 Lactic Acid Lactic Acid F/U @ 2Hr Calcium 8.5 Total Bilirubin AST ALT Alkaline Phosphatase Total Protein Albumin Blood Type Antibody Screen Crossmatch ([facility]) Assessment and Plan (1) Alcohol abuse: Status: Acute Plan 55M PMH alcohol dependence, alcoholic cirrhosis, GERD presented with alcohol withdrawal and shortness of breath Acute hypoxic respiratory failure secondary to bilateral pneumonia Continue vancomycin and Zosyn, follow up cultures, wean O2 as tolerated Alcohol dependence with withdrawal and alcohol cirrhosis complicated by pancytopenia, coagulopathy, hepatic encephalopathy Continue phenobarb, lactulose, monitor CIWA Acute lactic acidosis Due to alcohol, cirrhosis not sepsis GERD PPI DVT prophylaxis-mechanical due to thrombocytopenia Full Code reason for continued hospitalization: Hypoxia Quality Stroke Does the patient have a stroke diagnosis?: No VTE Prior VTE?: No VTE Risk Level:: Medical - moderate - high VTE Device Contraindication: N/A - Device Ordered VTE Drug Contraindication: Treatment Not Indicated
[2025-02-09] MEDS: Thiamine HCL 100 MG TABLET PO (09:57)
[2025-02-09] MEDS: vancomycin HCL 750 MG in 0.9 % Sodium Chloride 250 ML 265 MG IV ×2 (09:57→21:43)
[2025-02-09] MEDS: PHENobarbitaL 15 MG TABLET 45 MG PO ×2 (09:57→21:35)
[2025-02-09] MEDS: Sucralfate 1 GM TABLET PO ×2 (09:58→21:35)
[2025-02-09] MEDS: Folic Acid 1 MG TABLET PO (09:58)
[2025-02-09] MEDS: Lactulose 20 GM/30 ML SOLUTION PO (09:58)
[2025-02-09] MEDS: Magnesium Oxide 400 MG TABLET PO (09:58)
[2025-02-09] MEDS: 0.9 % Sodium Chloride Flush 3 ML SYRINGE IVFLUSH ×3 (09:58→21:43)
--- NOTE | 2025-02-09 10:40 | HO.ADDICT_ITS ---
History of Present Illness Date of Service: 02/09/25 Chief Complaint: Alcohol withdrawl,pneumonia hypoxia Reason for Consult: AUD with acute withdrawal Sources of Information: patient interviewed and chart reviewed HPI Narrative: Patient is a 55 year old male with long history of AUD and liver cirrhosis admitted with pneumonia and acute alcohol withdrawal Patient is well known to [facility] [place] visits and medical admissions related to alcohol use. - Today he is seen in room 387. He is awake, alert, oriented only to self, place and situation, however believes he has been hospitalized for the last week. He reports drinking 1/2 pint and 2 beers daily. He shares that he enjoys drinking and does not wish to reduce his intake. He continues to reside behind the package store, and has access to food daily. He has been provided detention at a local nondenominational, but could not continue there as he was drinking too much . Discussed how alcohol has been impacting his overall health, including current admission. He reports he has been having pain in his feet, and feels like he is walking barefoot on cement . Reviewed how alcohol has potentially contributed to this. He reports he is aware of this, and shares that his sister from issues related to AUD. He denies any withdrawal sx CIWA scores 1 Tolerating phenobarital protocol Past Psychiatric History: hx of 3 prior detox admissions for alcohol use. does not have outpatient psychiatric providers Pt reports hx of one SI attempt via overdose on pills at the age of 17. Review of Systems Constitutional: Reports as per HPI Gastrointestinal: Denies loose stools, Denies nausea and Denies vomiting Musculoskeletal: Reports myalgias Diagnostics Vital Signs (24Hr): Vital Signs - 24 hr 02/08/25 13:32 02/08/25 15:49 02/08/25 16:04 Temperature 98.6 F Pulse Rate 85 89 92 Respiratory Rate 18 18 17 Blood Pressure 111/50 L 113/58 L Pulse Oximetry 92 91 L Oxygen Delivery Method Nasal Cannula Nasal Cannula Oxygen Flow Rate 2 2 02/08/25 19:24 02/08/25 21:20 02/09/25 04:00 Temperature 98.7 F 98.8 F 98.9 F Pulse Rate 93 93 88 Respiratory Rate 18 18 20 Blood Pressure 119/58 L 111/53 L 116/58 L Pulse Oximetry 98 93 92 Oxygen Delivery Method Nasal Cannula Nasal Cannula Nasal Cannula Oxygen Flow Rate 3 2 0.5 02/09/25 08:00 Temperature 98.7 F Pulse Rate 79 Respiratory Rate 17 Blood Pressure 107/53 L Pulse Oximetry 92 Oxygen Delivery Method Nasal Cannula Oxygen Flow Rate 2 BMI result Body Mass Index 20.0 Labs 02/09/25 05:30 02/09/25 05:30 Labs: Laboratory Results - last 48 hr 02/08/25 02/08/25 02/08/25 01:52 01:56 02:29 WBC 2.8 L RBC 2.43 L Hgb 7.5 L Hct 23.2 L MCV 95.5 MCH 30.9 MCHC 32.3 RDW 14.6 Plt Count 62 L MPV 11.2 Immature Gran % (Auto) 0.4 Neut % (Auto) 43.0 L Lymph % (Auto) 40.3 H [place] % (Auto) 11.3 H Eos % (Auto) 3.9 Baso % (Auto) 1.1 Lymph # (Auto) 1.1 L [place] # (Auto) 0.3 Eos # (Auto) 0.1 Baso # (Auto) 0.0 Abs Immat Gran (auto) 0.01 Absolute Neuts (auto) 1.2 L Absolute Nucleated RBC 0.000 Nucleated RBC % (auto) 0.0 PT 15.3 H INR 1.3 H VBG pH 7.43 VBG pCO2 28 VBG pO2 99 VBG HCO3 18 L VBG O2 Saturation Not Reportable VBG Base Excess -4.3 Sodium 140 Potassium 4.0 Chloride 113 H Carbon Dioxide 18 L Anion Gap 13 BUN 17 H Creatinine 0.83 Estim Creat Clear Calc 76.5 Estimated GFR > 60 Random Glucose 95 Lactic Acid Lactic Acid F/U @ 2Hr Calcium 8.5 Total Bilirubin 0.4 Direct Bilirubin 0.2 AST 33 ALT 9 Alkaline Phosphatase 86 Ammonia 65 H Troponin I High Sens < 2.7 B-Natriuretic Peptide 147 H Total Protein 7.1 Albumin 3.5 Urine Opiates Screen Not Detected Ur Buprenorphine Scrn Not Detected Ur Oxycodone Screen Not Detected Urine Methadone Screen Not Detected Urine Fentanyl Screen Not Detected Ur Barbiturates Screen POSITIVE H Ur Phencyclidine Scrn Not Detected Ur Amphetamines Screen Not Detected U Benzodiazepines Scrn Not Detected Urine Cocaine Screen Not Detected U Marijuana (THC) Screen Not Detected Ethyl Alcohol 229 Influenza Type A (PCR) NEGATIVE Influenza Type B (PCR) NEGATIVE RSV RNA Qual (PCR) NEGATIVE SARS-CoV-2 RNA (RT-PCR) NEGATIVE Blood Type Antibody Screen Crossmatch (AHG) 02/08/25 02/08/25 02/08/25 18:30 18:41 21:02 WBC 2.8 L RBC 2.56 L Hgb 7.9 L Hct 24.8 L MCV 96.9 MCH 30.9 MCHC 31.9 RDW 14.6 Plt Count 60 L MPV 11.3 Immature Gran % (Auto) 0.4 Neut % (Auto) 62.9 Lymph % (Auto) 21.5 [place] % (Auto) 12.7 H Eos % (Auto) 1.8 Baso % (Auto) 0.7 Lymph # (Auto) 0.6 L [place] # (Auto) 0.4 Eos # (Auto) 0.1 Baso # (Auto) 0.0 Abs Immat Gran (auto) 0.01 Absolute Neuts (auto) 1.8 L Absolute Nucleated RBC 0.000 Nucleated RBC % (auto) 0.0 PT INR VBG pH 7.45 H VBG pCO2 31 VBG pO2 43 VBG HCO3 22 VBG O2 Saturation 66.0 VBG Base Excess -1.0 Sodium 142 Potassium 3.6 Chloride 113 H Carbon Dioxide 22 Anion Gap 11 L BUN 22 H Creatinine 0.89 Estim Creat Clear Calc 71.3 Estimated GFR > 60 Random Glucose 106 Lactic Acid 2.9 H* Lactic Acid F/U @ 2Hr 2.0 Calcium 8.7 Total Bilirubin 0.5 Direct Bilirubin AST 31 ALT 7 Alkaline Phosphatase 95 Ammonia Troponin I High Sens B-Natriuretic Peptide Total Protein 7.2 Albumin 3.5 Urine Opiates Screen Ur Buprenorphine Scrn Ur Oxycodone Screen Urine Methadone Screen Urine Fentanyl Screen Ur Barbiturates Screen Ur Phencyclidine Scrn Ur Amphetamines Screen U Benzodiazepines Scrn Urine Cocaine Screen U Marijuana (THC) Screen Ethyl Alcohol Influenza Type A (PCR) Influenza Type B (PCR) RSV RNA Qual (PCR) SARS-CoV-2 RNA (RT-PCR) Blood Type B Positive Antibody Screen NEGATIVE Crossmatch (AHG) See Detail 02/09/25 05:30 WBC 3.1 L RBC 2.40 L Hgb 7.5 L Hct 23.1 L MCV 96.3 MCH 31.3 MCHC 32.5 RDW 14.6 Plt Count 57 L MPV 11.9 Immature Gran % (Auto) 0.3 Neut % (Auto) 62.9 Lymph % (Auto) 22.8 [place] % (Auto) 10.7 Eos % (Auto) 2.3 Baso % (Auto) 1.0 Lymph # (Auto) 0.7 L [place] # (Auto) 0.3 Eos # (Auto) 0.1 Baso # (Auto) 0.0 Abs Immat Gran (auto) 0.01 Absolute Neuts (auto) 1.9 L Absolute Nucleated RBC 0.000 Nucleated RBC % (auto) 0.0 PT INR VBG pH VBG pCO2 VBG pO2 VBG HCO3 VBG O2 Saturation VBG Base Excess Sodium 139 Potassium 3.5 Chloride 112 H Carbon Dioxide 19 L Anion Gap 12 BUN 16 Creatinine 0.79 Estim Creat Clear Calc 80.3 Estimated GFR > 60 Random Glucose 89 Lactic Acid Lactic Acid F/U @ 2Hr Calcium 8.5 Total Bilirubin Direct Bilirubin AST ALT Alkaline Phosphatase Ammonia Troponin I High Sens B-Natriuretic Peptide Total Protein Albumin Urine Opiates Screen Ur Buprenorphine Scrn Ur Oxycodone Screen Urine Methadone Screen Urine Fentanyl Screen Ur Barbiturates Screen Ur Phencyclidine Scrn Ur Amphetamines Screen U Benzodiazepines Scrn Urine Cocaine Screen U Marijuana (THC) Screen Ethyl Alcohol Influenza Type A (PCR) Influenza Type B (PCR) RSV RNA Qual (PCR) SARS-CoV-2 RNA (RT-PCR) Blood Type Antibody Screen Crossmatch (AHG) Mental Status Exam Mental Status Exam Patient Orientation: Person, Place and Situation Level of Consciousness: Awake, Appropriate and Alert Patient Behavior: Appropriate Mood Description: Calm Affect Description: Calm Speech Pattern: Clear Thought Process: Intact Judgement: Fair Medications Medications Current Medications Acetaminophen (Acetaminophen 325 Mg Tablet) 650 mg PO Q6H PRN PRN Reason: Pain, Mild 1-3,fever,headache Calcium Carbonate (Calcium Carbonate 750 Mg Tab.Chew) 750 mg PO Q4H PRN PRN Reason: Heartburn Folic Acid (Folic Acid 1 Mg Tablet) 1 mg PO DAILY [facility] Last Admin: 02/09/25 09:58 Dose: 1 mg Piperacillin Sod/Tazobactam (Sod 4.5 gm/ Sodium Chloride) 100 mls @ 200 mls/hr IV Q6H [facility] Last Infusion: 02/09/25 06:18 Dose: Infused Vancomycin HCl 750 mg/ Sodium (Chloride) 265 mls @ 265 mls/hr IV Q12H [facility] Last Admin: 02/09/25 09:57 Dose: 265 mls/hr Lactulose (Lactulose 20 Gm/30 Ml Solution) 20 gm PO TID [facility] Last Admin: 02/09/25 09:58 Dose: 20 gm Magnesium Hydroxide (Milk Of Magnesia 30 Ml Oral.Susp) 30 ml PO DAILY PRN PRN Reason: Constipation Magnesium Oxide (Magnesium Oxide 400 Mg Tablet) 400 mg PO DAILY [facility] Last Admin: 02/09/25 09:58 Dose: 400 mg Melatonin (Melatonin 3 Mg Tablet) 6 mg PO BEDTIME PRN PRN Reason: Insomnia Omeprazole (Omeprazole 40 Mg Capsule.Dr) 40 mg PO DAILY@0630 [facility] Last Admin: 02/09/25 05:30 Dose: 40 mg Ondansetron HCl (Ondansetron Hcl 4 Mg/2 Ml Vial) 4 mg IVPUSH Q8H PRN PRN Reason: Nausea and Vomiting Pharmacy Consult (Consult Rx Etoh Phenob Im/Po) 1 each MISCELLANE ONCE PRN; Protocol PRN Reason: Consult order Pharmacy Consult (Consult Rx Vancomycin Dosing) 1 each MISCELLANE DAILY PRN PRN Reason: Consult order Phenobarbital (Phenobarbital 15 Mg Tablet) 45 mg PO BID [facility]; Protocol Stop: 02/10/25 21:01 Last Admin: 02/09/25 09:57 Dose: 45 mg Phenobarbital (Phenobarbital 30 Mg Tablet) 30 mg PO BID [facility]; Protocol Stop: 02/12/25 21:01 Phenobarbital (Phenobarbital 30 Mg Tablet) 30 mg PO DAILY [facility]; Protocol Stop: 02/14/25 09:01 Sodium Chloride (0.9 % Sodium Chloride Flush 3 Ml Syringe) 3 ml IVFLUSH QSHIFT [facility] Last Admin: 02/09/25 09:58 Dose: 3 ml Sodium Chloride (Sodium Chloride 0.65 % Nasal 44 Ml Sprbtl) 1 spray NOSTRIL-B Q1H PRN PRN Reason: Dryness Sucralfate (Sucralfate 1 Gm Tablet) 1 gm PO BID [facility] Last Admin: 02/09/25 09:58 Dose: 1 gm Thiamine HCl (Thiamine Hcl 100 Mg Tablet) 100 mg PO DAILY [facility] Last Admin: 02/09/25 09:57 Dose: 100 mg Allergies Allergies Allergy/AdvReac Type Severity Reaction Status Date / Time No Known Allergies Allergy Verified 02/07/25 22:47 [No Known Allergies*] Assessment & Plan Assessment & Plan (1) Alcohol use disorder: Status: Acute Code(s): F10.90 - Alcohol use, unspecified, uncomplicated Assessment and Plan: * pheno taper * consider gabapentin for neuropathy of feet * Declines any interventions related to AUD--medications, appts, or resources. He states that he is happy where he is with his 1/2 pint of vodka. He states that he knows where to seek support or detention if he needs it * no additional follow up at this time Total time managing care of this patient today _35___ minutes. PMFSH Past Medical History Medical History Alcohol use disorder Pneumonia Alcohol withdrawal syndrome Pancytopenia Alcohol abuse Thrombocytopenia Esophageal varices Acute on chronic anemia Alcoholic liver disease Aspiration pneumonia Thrombocytopenia Malnutrition CHF (congestive heart failure) Anemia Hypomagnesemia Cirrhosis Thrombocytopenia Acute on chronic anemia CHF (congestive heart failure) Anemia Alcohol abuse Surgical History Surgical History No history of previous surgery Social History Social History Household Members: None Household Members Other:: homeless Housing: Homeless Housing Other:: Homeless detention Unable to assess alcohol history related to: Refusing to respond Alcohol intake: current Alcohol intake frequency: 3 or more drinks per day Alcohol type: beer Comment: 1 assist to bathroom Patient Tobacco Use Status: Former Tobacco user Tobacco use type: Cigarette Second Hand Smoke Exposure: No Use of substances other than those prescribed or required for medical reasons: No Currently Displaying Signs/Symptoms of Drug Intoxication Withdrawal: No Advance Directives: Yes Advance Directives on File: Yes Advance Directives Date on File: 07/03/23 Nutrition Risks: No Nutritional Risk service: No
[2025-02-09 11:50] LABS: MRSA Nasal PCR NEGATIVE (Negative); SA Nasal PCR NEGATIVE (Negative)
--- NOTE | 2025-02-09 14:44 | MHC.CM.PN ---
Patient is homeless. He has come to [facility] multiple times this month. He has come in to the ER and he has been admitted too. He was formerly at [facility]. He states that he is now across the street . He is independent with functional mobility. Addiction Medicine has been consulted. The Patient was encouraged to participate with the Recovery Team. He was instructed to listen to the options presented. T/W communicated that the Recovery team is available with community resource information, when he decides that he is ready to quit (stop drinking). Information about the [facility] was provided to the patient. [facility], Streets or CSS set up by Addiction Medicine. CM will follow for discharge.
[2025-02-09 15:19] VITALS: BP 102/56; PULSE 91; RESP 17; TEMP 37.3; O2SAT 94
--- NOTE | 2025-02-09 19:18 | HE.PHANOTE ---
RE: VANCO DOSING Trough came back as 13 mg/L. Renal function is stable. Continue with dose of 750 mg q12h, next trough is scheduled for 02/10/25 @1900.
[2025-02-09 19:55] VITALS: BP 104/46; PULSE 85; RESP 18; TEMP 37.2; O2SAT 97
[2025-02-10] MEDS: Piperacillin Sodium/Tazobactam 4.5 GM in 0.9 % Sodium Chloride 100 ML IV ×2 (00:09→06:02)
[2025-02-10 04:00] VITALS: BP 102/54; PULSE 90; RESP 20; TEMP 37.1; O2SAT 92
[2025-02-10] MEDS: Omeprazole 40 MG CAPSULE.DR PO (06:02)
[2025-02-10 07:34] VITALS: BP 99/51; PULSE 76; RESP 16; TEMP 36.8; O2SAT 92
[2025-02-10 07:51] LABS: Hematocrit 24.9 % (42.0-52.0); Hemoglobin 7.9 g/dl (14.0-18.0); Mean Corpuscular HGB Conc 31.7 g/dl (31.0-36.0); Mean Corpuscular Volume 97.6 fL (80.0-98.0); Mean Platelet Volume 11.6 fL (9.4-12.4); Red Blood Count 2.55 X10*6/uL (4.60-5.80); Red Cell Distribution Width 14.4 % (11.0-16.0); White Blood Count 3.2 X10*3/uL (4.8-10.8)
[2025-02-10 07:52] LABS: Platelet Count 60 X10*3/uL (160-400)
[2025-02-10 08:04] LABS: Anion Gap 10 (12-20); Blood Urea Nitrogen 11 mg/dL (9-16); Calcium 8.8 mg/dL (8.4-10.2); Carbon Dioxide 20 mmol/L (22-29); Chloride 115 mmol/L (96-108); Creatinine Clr Calc Pharmacy 75.5; Estimated Glomerular Filt Rate > 60; Glucose Random 90 mg/dL (60-115); Magnesium 1.6 mg/dL (1.6-2.6); Sodium 141 mmol/L (135-145)
[2025-02-10] MEDS: 0.9 % Sodium Chloride Flush 3 ML SYRINGE IVFLUSH (08:33)
[2025-02-10] MEDS: Lactulose 20 GM/30 ML SOLUTION PO (08:33)
[2025-02-10] MEDS: PHENobarbitaL 15 MG TABLET 45 MG PO (08:33)
[2025-02-10] MEDS: Magnesium Oxide 400 MG TABLET PO (08:33)
[2025-02-10] MEDS: Folic Acid 1 MG TABLET PO (08:33)
[2025-02-10] MEDS: Thiamine HCL 100 MG TABLET PO (08:33)
[2025-02-10] MEDS: Sucralfate 1 GM TABLET PO (08:33)
[2025-02-10] MEDS: vancomycin HCL 750 MG in 0.9 % Sodium Chloride 250 ML 265 MG IV (08:37)
--- NOTE | 2025-02-10 10:34 | PC.NURSE ---
GENOVEVA went into patient room at approx. 10:30am and found that patient wasn't there. No clothes in closet. No sign of periperal IV having been pulled out. Security notified. Number on file for patint was called and brother answered. Situation was explained to him and he replied he does this all the time . Brother was asked to try to get in touch with the patient and have him come back to the hospital to have the IV removed. Brother said that he would try. Will continue to try to locate patient
--- NOTE | 2025-02-10 11:17 | PC.NURSE ---
At approx 1050 this bond writer reached out to [place] [employer] to notify of pt leaving with possible IV line in arm. Officer Yobany notified number we have on file is for pts brother, and address is listed as homeless. This bond writer relayed that patient safety is of significant concern. This bond writer provided that pt has been known to frequent [facility]. D Officer states I will notify my officers and we will attempt to locate this individual if possible. Officer notified IV was in LFA. Officer will update if any information or location is obtained.
--- NOTE | 2025-02-10 11:46 | P.DS_ITS ---
DS: Providers Provider Date of Service: 02/10/25 Date of admission: 02/08/25 18:52 Date of discharge: 02/10/25 Primary care physician: [facility] Consults: 02/08/25 18:56 Addiction Medicine Provider Routine Consulting Provider: Arpit Sharp Reason for consultation: AUD 02/10/25 11:05 Inpt - Recovery Team Routine Comment: Reason for consultation: LUCAS eval DS: Diagnosis Discharge Diagnosis (1) Alcohol use disorder: Status: Acute DS: Summary Hospital Course Hospital Course: from initial hpi: 55-year-old male with pertinent history of alcohol use disorder with alcoholic cirrhosis, gastroesophageal reflux disease presented to the ED early this morning with complaints of ankle pain. Upon further questioning, he states that while walking, he experiences pain and numbness and tingling in his feet that has been ongoing for several days. Denies any pain in the legs. He did arrive intoxicated and has a history of recurrent ER visits and hospitalization for intoxication alcohol withdrawal. He has also had multiple admissions for aspiration pneumonia with hypoxia as well as hepatic encephalopathy. The patient does not use home O2. 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 The patient is a limited historian. Per ED provider, the patient desaturated into the 80s while sleeping as well as when ambulating with oximetry in the 70s. This afternoon, patient was requiring supplemental O2 at rest with oximetry 90% on 2 L. in the ED, he has been afebrile, blood pressure stable. The patient has chronic pancytopenia, consistent with baseline. Renal function baseline, electrolyte levels normal except for chloride 113 which again is chronic. Lactic acid 2.9. Ammonia level 65 the patient does not appear encephalopathic. Troponin undetectable. BNP 147. Urine tox screen positive for barbiturates. Negative for COVID-19, RSV, influenza. CTA of the chest negative for any large proximal pulmonary emboli but does show diffuse bilateral developing patchy/nodular consolidations concerning for pneumonia. Head CT negative for any acute intracranial abnormality. EKG shows NSR, rate 89 without any acute ischemic changes, QTC 484. hospital course: Patient was admitted for acute hypoxic respiratory failure secondary to bilateral pneumonia. Was treated with vancomycin and Zosyn. Was weaned off oxygen. For alcohol dependence with withdrawal and alcoholic cirrhosis complicated by pancytopenia, coagulopathy, hepatic encephalopathy was treated with phenobarbital, lactulose and symptoms improved. He has acute lactic acidosis was due to alcohol and cirrhosis not sepsis. For GERD was continued on PPI. Patient eloped before being evaluated for discharge. Time Attestation Discharge Coordination Time (in mins): 31 Quality: Safe Use of Opioids Does Pt have an Active Cancer Diagnosis on the Problem List?: No Quality: Stroke Does the patient have a stroke diagnosis?: No Physical Exam Vital Signs: Vital Signs: Last Vital Signs Temp 98.3 F 02/10/25 07:34 Pulse 76 02/10/25 07:34 Resp 16 02/10/25 07:34 BP 99/51 L 02/10/25 07:34 Pulse Ox 92 02/10/25 07:34 O2 Del Method Nasal Cannula 02/10/25 07:34 O2 Flow Rate 2 02/10/25 07:34 BMI result Body Mass Index 20.0 Const: Other: Constitutional : interactive, not in distress Cardiovascular : no JVP, no lower extremity edema Respiratory : bilateral chest movement, not in resp distress Gastrointestinal: soft, lax, Non tender, mild distention Skin : Warm, Dry Neurological : Alert & oriented , No focal deficit DS: Data Data Completed and Pending Completed studies during hospitalization [Text1]: Procedures Control Bleeding in Gastrointestinal Tract, Via Natural or Artificial Opening Endoscopic (08/29/23) Control Bleeding in Nasal Mucosa and Soft Tissue, Via Natural or Artificial Opening (11/29/24) Detoxification Services for Substance Abuse Treatment (12/11/24) Drainage of Peritoneal Cavity, Percutaneous Approach (10/21/24) Excision of Ascending Colon, Via Natural or Artificial Opening Endoscopic, Diagnostic (08/03/23) Excision of Descending Colon, Via Natural or Artificial Opening Endoscopic, Diagnostic (08/03/23) Insertion of Infusion Device into Upper Vein, Percutaneous Approach (08/29/23) Introduction of Mineral-based Topical Hemostatic Agent into Lower GI, Via Natural or Artificial Opening Endoscopic, [employer] 6 (08/03/23) Introduction of Mineral-based Topical Hemostatic Agent into Upper GI, Via Natural or Artificial Opening Endoscopic, [employer] 6 (08/29/23) Occlusion of Esophageal Vein with Extraluminal Device, Via Natural or Artificial Opening Endoscopic (11/29/24) Occlusion of Esophageal Vein, Via Natural or Artificial Opening Endoscopic (01/22/24) Transfusion of Nonautologous Plasma Cryoprecipitate into Peripheral Vein, Percutaneous Approach (08/03/23) Transfusion of Nonautologous Platelets into Peripheral Vein, Percutaneous Approach (11/29/24) Transfusion of Nonautologous Red Blood Cells into Peripheral Vein, Percutaneous Approach (11/29/24) Labs on day of discharge: Laboratory Results - last 24 hr 02/09/25 02/09/25 02/10/25 08:29 18:53 07:29 WBC 3.2 L RBC 2.55 L Hgb 7.9 L Hct 24.9 L MCV 97.6 MCH 31.0 MCHC 31.7 RDW 14.4 Plt Count 60 L MPV 11.6 Absolute Nucleated RBC 0.000 Nucleated RBC % (auto) 0.0 Sodium 141 Potassium 4.0 Chloride 115 H Carbon Dioxide 20 L Anion Gap 10 L BUN 11 Creatinine 0.84 Estim Creat Clear Calc 75.5 Estimated GFR > 60 Random Glucose 90 Calcium 8.8 Magnesium 1.6 Nasal Screen MRSA (PCR) NEGATIVE Nasal S. aureus Screen NEGATIVE Nasal MRSA/S.aureus Interp SEE NOTE Random Vancomycin 13.0 L Preliminary micro results at discharge 02/08/25 18:30 Blood Culture - Preliminary Blood - Venous No growth after 24 hours. 02/08/25 18:15 Blood Culture - Preliminary Blood - Venous No growth after 24 hours. Discharge Plan Discharge Patient Disposition: Left Against Medical Advice Discharge Diagnosis: etoh, pna Referrals: [facility] [Primary Care Provider] - 1 Week Discharge Medications: No Action sucralfate [Carafate] 1 gram tablet 1 g PO BID Qty: 60 0RF acetaminophen 325 mg Tablet 975 mg PO Q6H PRN (Reason: Pain, Mild 1-3,Fever,Headache) Qty: 30 0RF magnesium oxide 400 mg (241.3 mg magnesium) Tablet 400 mg PO DAILY Qty: 30 0RF [place] Nasal 0.65 % Aerosol,[place] 1 spray intranasal Q1H PRN (Reason: Dryness) Qty: 44 0RF lactulose 10 gram/15 mL solution 30 ml PO TID omeprazole 40 mg capsule,delayed release(DR/EC) 40 mg PO DAILY@0630 folic acid 1 mg Tablet 1 mg PO DAILY Qty: 90 0RF thiamine mononitrate (vit B1) 100 mg Tablet 100 mg PO DAILY Qty: 90 0RF Discharge Orders: Discharge Order (Routine); Ordered 02/10/25 Ordered By: Rolan Baker Print Language: Russian Activity Restrictions/Additional Instructions: Stop drinking alcohol Follow up with detox Care Plan Goals: eloped Health Concerns: eloped Plan of Treatment: eloped Assessment: eloped Patient Instructions: Abuse of Alcohol (DC) Discharge Date/Time: 02/10/25 10:30
--- NOTE | 2025-02-10 12:11 | MHC.CM.PN ---
Patient left hospital via private transport prior to being discharged.
[2025-02-11 21:14] LABS: Strep Pneumo Ag urine Not Detected (Not Detected)
[2025-02-14 13:24] LABS: Legionella Ag Urine Not Detected (Not Detected)
== END 2025-02-10 10:30 | disposition left against medical advice (07) | DRG 139 ==
LOC: HO.ED 02-08 18:10 → HO.EDOVER 02-08 19:04 → HO.S3 02-08 19:26
PROVIDERS: Emergency Medicine; Admitting Provider Physician Assistant; Emergency Provider Emergency Medicine Emergency Medical Services; Visit Provider Internal Medicine
DX: J18.9 Pneumonia, unspecified organism (principal); J96.01 Acute respiratory failure with hypoxia; D61.818 Other pancytopenia; K76.82 Hepatic encephalopathy; K70.30 Alcoholic cirrhosis of liver without ascites; D68.4 Acquired coagulation factor deficiency; E87.21 Acute metabolic acidosis; F10.229 Alcohol dependence with intoxication, unspecified; F10.239 Alcohol dependence with withdrawal, unspecified; Y90.7 Blood alcohol level of 200-239 mg/100 ml; K21.9 Gastro-esophageal reflux disease without esophagitis; Z20.822 Contact with and (suspected) exposure to COVID-19; Z87.891 Personal history of nicotine dependence; Z79.899 Other long term (current) drug therapy
CPT/HCPCS: 0241U; 36415; 70450; 71275; 80048; 80053; 80076; 80202; 80307; 82140; 82803; 83605; 83735; 83880; 84484; 85025; 85027; 85610; 86850; 86900; 86901; 86920; 86922; 87040; 87070; 87205; 87449; 87640; 87641; 87899; 93005; 94640; 99285; J1940; J2543; J2560; J3370; J3371; J3411; Q9967

== ENCOUNTER → 2025-02-08 01:40 | Outpatient (BNV) | payer MEDICAID, SELFPAY | PROVIDERS: Emergency Provider Emergency Medicine Emergency Medical Services; Visit Provider Internal Medicine Cardiovascular Disease | DX: R94.31 Abnormal electrocardiogram [ECG] [EKG] (principal); R06.02 Shortness of breath | CPT/HCPCS: 93010 ==

== ENCOUNTER → 2025-02-08 01:44 | Outpatient (BNV) | payer MEDICAID, SELFPAY | PROVIDERS: Emergency Provider Emergency Medicine Emergency Medical Services; Visit Provider Radiology Diagnostic Radiology | DX: R09.02 Hypoxemia (principal); Z03.89 Encounter for observation for other suspected diseases and conditions ruled out; W19.XXXA Unspecified fall, initial encounter | CPT/HCPCS: 70450; 71275 ==

== ENCOUNTER → 2025-02-08 18:52 | Outpatient (BNV) | payer MEDICAID, SELFPAY | PROVIDERS: Admitting Provider Physician Assistant; Emergency Provider Emergency Medicine Emergency Medical Services; Visit Provider Nurse Practitioner Psychiatric/Mental Health | DX: F10.90 Alcohol use, unspecified, uncomplicated (principal) | CPT/HCPCS: 99221 ==

== ENCOUNTER → 2025-02-08 18:52 | Outpatient (BNV) | payer MEDICAID, SELFPAY | PROVIDERS: Admitting Provider Physician Assistant; Emergency Provider Emergency Medicine Emergency Medical Services; Visit Provider Physician Assistant | DX: R09.02 Hypoxemia (principal); F10.10 Alcohol abuse, uncomplicated; J18.9 Pneumonia, unspecified organism | CPT/HCPCS: 99223; 99233 ==

== ENCOUNTER 2025-02-10 21:17 | Inpatient (IN) | payer MEDICAID, SELFPAY ==
--- NOTE | ~2025-02-10 | XR_ITS ---
EXAMINATION: XR CHEST 1 VIEW HISTORY: follow up hypoxia COMPARISON: Comparison is made with the prior examination dated 02/07/2025. FINDINGS: A single AP portable view of the chest performed at 11:05 AM is submitted. There is prominence of the pulmonary vasculature, consistent with congestion. More focal opacity is seen in the left lower lobe, compatible with pneumonia. There may be tiny bilateral pleural effusions. There is no pneumothorax. The heart remains enlarged. The bones are intact. XR/XR chest 1V IMPRESSION: 1. Cardiomegaly and pulmonary vascular congestion. 2. More focal airspace opacity in the left lower lobe compatible with pneumonia. Electronically signed by: Dony Nunn MD 02/11/2025 11:16 AM EDT
[2025-02-10 21:38] VITALS: BP 134/54; PULSE 79; RESP 16; TEMP 37.1; O2SAT 90
[2025-02-10 21:42] VITALS: BP 125/78; BP 134/54; PULSE 79; PULSE 81; RESP 16; TEMP 37.1; O2SAT 90; BMI 25.7
[2025-02-10 21:56] VITALS: O2SAT 95
--- NOTE | 2025-02-10 22:58 | PC.NURSE ---
Report given to LAURA Grover.
--- NOTE | 2025-02-10 23:25 | ED.GENADULT ---
HPI - General Adult General Chief complaint: General Medical Stated complaint: etoh feet and knee L side Time Seen by Provider: 02/10/25 23:20 Source: patient Limitations: other (Intoxicated) History of Present Illness ED Provider: Trudy Brannon PA-C HPI narrative: 55-year-old male with a history of alcohol use disorder with alcoholic cirrhosis, gastroesophageal reflux disease, recent hospital admission for pneumonia, having left against medical advice this morning, returns back to the emergency room intoxicated. Related Data Home Medications ?Medication ?Instructions ?Recorded ?Confirmed lactulose 10 gram/15 mL oral 30 ml PO TID 02/01/25 02/08/25 solution omeprazole 40 mg capsule,delayed 40 mg PO DAILY@0630 02/01/25 02/08/25 release Previous Rx's ?Medication ?Instructions ?Recorded acetaminophen 325 mg tablet 975 mg (3 x 325 mg) PO Q6H PRN 12/17/24 Pain, Mild 1-3,Fever,Headache #30 tabs magnesium oxide 400 mg (241.3 mg 400 mg PO DAILY #30 tabs 12/17/24 magnesium) tablet sodium chloride 0.65 % nasal spray 1 spray intranasal Q1H PRN Dryness 12/17/24 aerosol (Deep Sea Nasal) #44 mL sucralfate 1 gram tablet (Carafate) 1 g PO BID #60 tabs 12/17/24 folic acid 1 mg tablet 1 mg PO DAILY #90 tabs 02/04/25 thiamine mononitrate (vit B1) 100 100 mg PO DAILY #90 tabs 02/04/25 mg tablet Allergies Allergy/AdvReac Type Severity Reaction Status Date / Time No Known Allergies Allergy Verified 02/10/25 21:45 [No Known Allergies*] Review of Systems Review of Systems: Unable to obtain as he is intoxicated Yes all other systems are reviewed and are negative PMFSH Past Medical History Attestation statement: The following information was validated with the patient. Medical History Alcohol use disorder Pneumonia Alcohol withdrawal syndrome Pancytopenia Alcohol abuse Thrombocytopenia Esophageal varices Acute on chronic anemia Alcoholic liver disease Aspiration pneumonia Thrombocytopenia Malnutrition CHF (congestive heart failure) Anemia Hypomagnesemia Cirrhosis Thrombocytopenia Acute on chronic anemia CHF (congestive heart failure) Anemia Alcohol abuse Surgical History No history of previous surgery Social History Social History Household Members: None Household Members Other:: homeless Housing: Homeless Housing Other:: Homeless nursing home Unable to assess alcohol history related to: Refusing to respond Alcohol intake: current Alcohol intake frequency: 3 or more drinks per day Alcohol type: beer Comment: 1 assist to bathroom Patient Tobacco Use Status: Former Tobacco user Tobacco use type: Cigarette Smoked in Last 30 Days: No Second Hand Smoke Exposure: No Use of substances other than those prescribed or required for medical reasons: Refusing to respond Advance Directives: Yes Advance Directives on File: Yes Advance Directives Date on File: 07/03/23 Do you have a plan to hurt others: No Plan service: No Physical Exam ED Vital Signs: Vital Signs - 24 hr 02/10/25 21:38 02/10/25 21:42 02/10/25 21:56 Temperature 98.8 F 98.8 F Pulse Rate 79 79 Respiratory Rate 16 16 Blood Pressure 134/54 L 134/54 L Pulse Oximetry 90 L 90 L 95 Oxygen Delivery Method Room Air Room Air Nasal Cannula Oxygen Flow Rate 2 02/10/25 23:42 Temperature Pulse Rate 80 Respiratory Rate 16 Blood Pressure Pulse Oximetry 97 Oxygen Delivery Method Nasal Cannula Oxygen Flow Rate 6 BMI result Body Mass Index 25.7 Const Other: Sleeping, easily woken with verbal stimuli Orientation/consciousness: patient oriented x3 HENMT Other: Alcohol halitosis Resp Other: Crackles posterior sánchez Cardio Other: Normal peripheral perfusion Skin Other: Warm dry no rash Neuro General: patient oriented x3, gait normal, no focal motor deficits and CN's II-XI intact bilaterally Psych Other: Uncooperative at times Medications Administered Discontinued Medications Generic Name Dose Route Start Last Admin Trade Name Freq PRN Reason Stop Dose Admin Amoxicillin/Clavulanate Potassium 875 mg 02/10/25 23:33 02/10/25 23:47 Amoxicillin/Potassium Clav 875 Mg Tablet PO 02/10/25 23:34 875 mg ONCE ONE Administration Doxycycline Monohydrate 100 mg 02/10/25 23:33 02/10/25 23:47 Doxycycline Monohydrate 100 Mg Capsule PO 02/10/25 23:34 100 mg ONCE ONE Administration Medical Decision Making Medical Decision Making MDM Narrative: 55-year-old male with a history of alcohol use disorder with alcoholic cirrhosis, gastroesophageal reflux disease, recent hospital admission for pneumonia, having left against medical advice this morning, returns back to the emergency room intoxicated. Problem: Alcohol use disorder History: Per patient which is limited I have considered the following differential diagnoses: Pneumonia Plan: We already know the patient has a pneumonia he left against medical advice this morning, already reached out to the hospitalist, we will attempt to admit again. Placing a CIWA scale, medicating his ethanol is only 200s, he would draws at a low threshold. He is hypoxic 89% on room air he is now on 2 L nasal cannula. He received oral antibiotics earlier, starting vanco and Zosyn, not repeating blood cultures after discussion with the hospitalist, that was already done a day ago it will be of no benefit he has already had antibiotic therapy. Not repeating the chest x-ray. I did repeat screening labs. I have independently reviewed the following tests: Labs: Worsening anemia, his H&H are 7.2 and 22, no leukocytosis, platelets are 53 which have decreased, no electrolyte abnormality, albumin 3.2, ethanol 213 I made the hospitalist aware of the worsening anemia, they said nothing to do now they will repeat labs in the morning. Lab Data 02/10/25 23:37 02/10/25 23:37 Labs: Lab Results 02/10/25 Range/Units 23:37 WBC 3.5 L (4.8-10.8) X10*3/uL RBC 2.32 L (4.60-5.80) X10*6/uL Hgb 7.2 L (14.0-18.0) g/dl Hct 22.0 L (42.0-52.0) % MCV 94.8 (80.0-98.0) fL MCH 31.0 (27.0-33.0) pg MCHC 32.7 (31.0-36.0) g/dl RDW 14.6 (11.0-16.0) % Plt Count 53 L (160-400) X10*3/uL MPV 11.0 (9.4-12.4) fL Immature Gran % (Auto) 0.3 (0.0-0.4) % Neut % (Auto) 55.6 (45-73) % Lymph % (Auto) 29.1 (20-40) % [place] % (Auto) 9.6 (2-11) % Eos % (Auto) 4.8 H (0-4) % Baso % (Auto) 0.6 (0-2) % Lymph # (Auto) 1.0 L (1.2-4.9) X10*3/uL [place] # (Auto) 0.3 (0.1-1.2) X10*3/uL Eos # (Auto) 0.2 (0.0-0.4) X10*3/uL Baso # (Auto) 0.0 (0.0-0.2) X10*3/uL Abs Immat Gran (auto) 0.01 (0.00-0.03) X10*3/uL Absolute Neuts (auto) 2.0 (2.0-8.3) x10*3/uL Absolute Nucleated RBC 0.000 (0.0-0.012) X10*3/uL Nucleated RBC % (auto) 0.0 (0.0-0.2) /100WBC Sodium 137 (135-145) mmol/L Potassium 3.9 (3.3-5.1) mmol/L Chloride 112 H (96-108) mmol/L Carbon Dioxide 16 L (22-29) mmol/L Anion Gap 13 (12-20) BUN 10 (9-16) mg/dL Creatinine 0.72 (0.5-1.4) mg/dL Estim Creat Clear Calc 99.6 Estimated GFR > 60 Random Glucose 92 (60-115) mg/dL Calcium 8.5 (8.4-10.2) mg/dL Magnesium 1.7 (1.6-2.6) mg/dL Total Bilirubin 0.4 (0.0-1.0) mg/dL AST 26 (5-37) U/L ALT < 6 (0-40) U/L Alkaline Phosphatase 83 (39-117) U/L Total Protein 6.8 (6.5-8.0) g/dL Albumin 3.2 L (3.5-5.0) g/dL Ethyl Alcohol 213 mg/dL Discharge Plan Discharge Clinical Impression: Alcohol use disorder, Hypoxia, Pneumonia, Anemia Patient Disposition: Admitted As Inpatient
[2025-02-10 23:42] VITALS: PULSE 80; RESP 16; O2SAT 97
--- NOTE | 2025-02-10 23:42 | PC.NURSE ---
Assumed care for pt at 2300. Small amount of bright red blood coming out of the right nostril. Pt currently hypoxic with o2 sat at 84% on NC as pt self removed NC. NC re applied and o2 increased to 6L with improvement to 97%. Pt currenlty on 3L NC with o2 sat 94%. Pt reports bilateral foot pain, 5/10. MDL made aware and at bedside. Orders placed in the MAR.
[2025-02-10 23:44] LABS: MANUAL DIFF FLAG NO
[2025-02-10 23:45] LABS: Basophils Percent Auto 0.6 % (0-2); Eosinophils Absolute Auto 0.2 X10*3/uL (0.0-0.4); Eosinophils Percent Auto 4.8 % (0-4); Hemoglobin 7.2 g/dl (14.0-18.0); Imm Gran Abs Auto 0.01 X10*3/uL (0.00-0.03); Imm Gran Pct Auto 0.3 % (0.0-0.4); Lymphocytes Percent Auto 29.1 % (20-40); Mean Corpuscular HGB Conc 32.7 g/dl (31.0-36.0); Mean Corpuscular Volume 94.8 fL (80.0-98.0); Monocytes Absolute Auto 0.3 X10*3/uL (0.1-1.2); Monocytes Percent Auto 9.6 % (2-11); Neutrophils Percent Auto 55.6 % (45-73); Platelet Count 53 X10*3/uL (160-400); Red Blood Count 2.32 X10*6/uL (4.60-5.80); Red Cell Distribution Width 14.6 % (11.0-16.0); White Blood Count 3.5 X10*3/uL (4.8-10.8)
[2025-02-10] MEDS: Amoxicillin/Potassium Clav 875 MG TABLET PO (23:47)
[2025-02-10] MEDS: Doxycycline Monohydrate 100 MG CAPSULE PO (23:47)
--- NOTE | 2025-02-10 23:55 | PC.NURSE ---
O2 sat dropped to 89% on 3L. Increased to 4L with not much improvement. Pt is currenlty on 6L NC sat at 93-94%. MDL made aware.
[2025-02-11] VITALS (7 sets, daily range): BP systolic 94–112; BP diastolic 48–56; PULSE 78–91; RESP 18–24; TEMP 36.7–38; O2SAT 91–97; BMI 23.1
[2025-02-11 00:03] LABS: Alanine Aminotransferase < 6 U/L (0-40); Albumin Level 3.2 g/dL (3.5-5.0); Alkaline Phosphatase 83 U/L (39-117); Anion Gap 13 (12-20); Aspartate Amino Transferase 26 U/L (5-37); Bilirubin Total 0.4 mg/dL (0.0-1.0); Blood Urea Nitrogen 10 mg/dL (9-16); Calcium 8.5 mg/dL (8.4-10.2); Carbon Dioxide 16 mmol/L (22-29); Chloride 112 mmol/L (96-108); Creatinine Clr Calc Pharmacy 99.6; Estimated Glomerular Filt Rate > 60; Ethanol 213 mg/dL; Glucose Random 92 mg/dL (60-115); Magnesium 1.7 mg/dL (1.6-2.6); Potassium 3.9 mmol/L (3.3-5.1); Sodium 137 mmol/L (135-145); Total Protein 6.8 g/dL (6.5-8.0)
--- NOTE | 2025-02-11 01:15 | PC.NURSE ---
Hospitalist at bedside.
--- NOTE | 2025-02-11 01:57 | P.HPHOSP_ITS ---
History of Present Illness Date of Service: 02/11/25 Chief Complaint: Alcohol use This is a 55-year-old male with pertinent history of alcohol use disorder with alcoholic cirrhosis, gastroesophageal reflux disease who presented to the emergency department after alcohol intoxication. Patient was recently admitted on 02/08 with acute hypoxemic respiratory failure due to bilateral pneumonia. Patient eloped on 02/10. Patient found drinking alcohol and was brought to the hospital.. He appears intoxicated and not willing to participate in conversation or follow commands. Patient is requiring supplemental oxygen in the ER. Unable to obtain history or review of systems. Review of Systems 2 Review of Systems: Yes Unobtainable due to mental status PMFSH Medical History Alcohol use disorder Pneumonia Alcohol withdrawal syndrome Pancytopenia Alcohol abuse Thrombocytopenia Esophageal varices Acute on chronic anemia Alcoholic liver disease Aspiration pneumonia Thrombocytopenia Malnutrition CHF (congestive heart failure) Anemia Hypomagnesemia Cirrhosis Thrombocytopenia Acute on chronic anemia CHF (congestive heart failure) Anemia Alcohol abuse Surgical History No history of previous surgery Social History Household Members: None Household Members Other:: homeless Housing: Homeless Housing Other:: Homeless longterm Unable to assess alcohol history related to: Refusing to respond Alcohol intake: current Alcohol intake frequency: 3 or more drinks per day Alcohol type: beer Comment: 1 assist to bathroom Patient Tobacco Use Status: Former Tobacco user Tobacco use type: Cigarette Smoked in Last 30 Days: No Second Hand Smoke Exposure: No Use of substances other than those prescribed or required for medical reasons: Refusing to respond Advance Directives: Yes Advance Directives on File: Yes Advance Directives Date on File: 07/03/23 Do you have a plan to hurt others: No Plan service: No Meds Allergies Allergy/AdvReac Type Severity Reaction Status Date / Time No Known Allergies Allergy Verified 02/10/25 21:45 [No Known Allergies*] Active Medications: Current Medications Sodium Chloride (Ns) 1,000 mls @ 999 mls/hr IV .Q1H1M JOSE MANUEL Stop: 02/11/25 02:45 Vancomycin HCl 1,500 mg/ (Sodium Chloride) 500 mls @ 333.333 mls/hr IV ONCE ONE Stop: 02/11/25 03:08 Piperacillin Sod/Tazobactam (Sod 3.375 gm/ Sodium Chloride) 50 mls @ 100 mls/hr IV ONCE ONE Stop: 02/11/25 02:08 Pharmacy Consult (Consult Rx Etoh Phenob Im/Po) 1 each MISCELLANE ONCE PRN; Protocol PRN Reason: Consult order Home Medications ?Medication ?Instructions ?Recorded ?Confirmed ?Last Taken ?Type lactulose 10 gram/15 mL oral 30 ml PO TID 02/01/25 02/08/25 Unknown History solution omeprazole 40 mg capsule,delayed 40 mg PO DAILY@0630 02/01/25 02/08/25 Unknown History release Physical Exam 2 Vital Signs and Narrative: Vital Signs: Last Vital Signs Temp 98.8 F 02/10/25 21:42 Pulse 80 02/10/25 23:42 Resp 16 02/10/25 23:42 BP 134/54 L 02/10/25 21:42 Pulse Ox 97 02/10/25 23:42 O2 Del Method Nasal Cannula 02/10/25 23:42 O2 Flow Rate 6 02/10/25 23:42 BMI result Body Mass Index 25.7 Middle-aged male lying in bed on supplemental O2 Neck supple, no JVD Regular rate and rhythm, S1-S2 heard Regular breath sounds bilaterally, no wheezing or crackles appreciated Abdomen nontender, no guarding, no rigidity Patient is somnolent but awakens to verbal stimulus, answers questions appropriately, follows commands Psych: Lethargic No pedal edema Results Labs 02/10/25 23:37 02/10/25 23:37 Labs: Laboratory Results - last 24 hr 02/10/25 23:37 MCV 94.8 MCH 31.0 MCHC 32.7 RDW 14.6 Plt Count 53 L MPV 11.0 Immature Gran % (Auto) 0.3 Neut % (Auto) 55.6 Lymph % (Auto) 29.1 [place] % (Auto) 9.6 Eos % (Auto) 4.8 H Baso % (Auto) 0.6 Lymph # (Auto) 1.0 L [place] # (Auto) 0.3 Eos # (Auto) 0.2 Baso # (Auto) 0.0 Abs Immat Gran (auto) 0.01 Absolute Neuts (auto) 2.0 Absolute Nucleated RBC 0.000 Nucleated RBC % (auto) 0.0 Anion Gap 13 Estim Creat Clear Calc 99.6 Estimated GFR > 60 Random Glucose 92 Calcium 8.5 Magnesium 1.7 Total Bilirubin 0.4 AST 26 ALT < 6 Alkaline Phosphatase 83 Total Protein 6.8 Albumin 3.2 L Ethyl Alcohol 213 Assessment and Plan (1) Hypoxia: Status: Acute (2) Alcohol use disorder: Status: Acute Plan This is a 55-year-old male with pertinent history of alcohol use disorder with alcoholic cirrhosis, gastroesophageal reflux disease who presented to the emergency department after alcohol intoxication. #. Alcohol use disorder. Phenobarb protocol initiated in the ER for concerns of withdrawal. Monitor CIWA. Initiating thiamine. Consulted Addiction Team #. Acute hypoxemic respiratory failure due to bilateral pneumonia. Wean supplemental O2 as tolerated. IV Zosyn and vancomycin started 02/08 but patient missed dose on 02/10 as he eloped. Will continue broad spectrum IV abx for now #. Pancytopenia: in the setting of cirrhosis and alcoholism. #. Alcoholic cirrhosis: not on diuretics . Continue lactulose. Obtaining ammonia with am labs Med rec pending DVT prophylaxis: Mechanical Full code Admit as inpatient and will require two night minimum hospital stay for management of alcohol withdrawal, IV antibiotics, supplemental oxygen (as above), which is not possible in a lesser acute setting. Quality Stroke Does the patient have a stroke diagnosis?: No VTE Prior VTE?: No VTE Risk Level:: Medical - moderate - high VTE Device Contraindication: N/A - Device Ordered VTE Drug Contraindication: Treatment Not Indicated
[2025-02-11] MEDS: Piperacillin Sodium/Tazobactam 3.375 GM in 0.9 % Sodium Chloride 50 ML IV ×4 (02:48→19:27)
[2025-02-11] MEDS: PHENobarbitaL sodium 130 MG/ML IM ONCE 246 MG IM (02:48)
[2025-02-11] MEDS: Lactulose 20 GM/30 ML SOLUTION 30 GM PO ×3 (02:48→20:21)
[2025-02-11] MEDS: 0.9 % Sodium Chloride 1,000 ML 999 ML IV (02:49)
[2025-02-11] MEDS: Thiamine HCL 100 MG in 0.9 % Sodium Chloride 100 ML 202 MG IV (03:40)
[2025-02-11] MEDS: vancomycin HCL 1,500 MG in 0.9 % Sodium Chloride 500 ML 333.33 MG IV (03:41)
[2025-02-11 04:59] LABS: MANUAL DIFF FLAG NO
[2025-02-11 05:06] LABS: Ammonia 48 umol/L (13-55); Basophils Percent Auto 0.7 % (0-2); Eosinophils Absolute Auto 0.2 X10*3/uL (0.0-0.4); Eosinophils Percent Auto 5.5 % (0-4); Hematocrit 22.8 % (42.0-52.0); Hemoglobin 7.1 g/dl (14.0-18.0); Imm Gran Abs Auto 0.01 X10*3/uL (0.00-0.03); Imm Gran Pct Auto 0.4 % (0.0-0.4); Lymphocytes Absolute Auto 0.9 X10*3/uL (1.2-4.9); Lymphocytes Percent Auto 34.2 % (20-40); Mean Corpuscular HGB Conc 31.1 g/dl (31.0-36.0); Mean Corpuscular Volume 99.6 fL (80.0-98.0); Mean Platelet Volume 11.2 fL (9.4-12.4); Monocytes Absolute Auto 0.3 X10*3/uL (0.1-1.2); Monocytes Percent Auto 11.8 % (2-11); Neutrophils Absolute Auto 1.3 x10*3/uL (2.0-8.3); Neutrophils Percent Auto 47.4 % (45-73); Red Blood Count 2.29 X10*6/uL (4.60-5.80); Red Cell Distribution Width 14.6 % (11.0-16.0); White Blood Count 2.7 X10*3/uL (4.8-10.8)
[2025-02-11 05:07] LABS: Platelet Count 51 X10*3/uL (160-400)
[2025-02-11 05:12] LABS: Anion Gap 12 (12-20); Blood Urea Nitrogen 9 mg/dL (9-16); Calcium 8.2 mg/dL (8.4-10.2); Carbon Dioxide 14 mmol/L (22-29); Chloride 117 mmol/L (96-108); Estimated Glomerular Filt Rate > 60; Glucose Random 80 mg/dL (60-115); Potassium 3.7 mmol/L (3.3-5.1); Sodium 139 mmol/L (135-145)
--- NOTE | 2025-02-11 05:25 | PC.NURSE ---
This nurse called to the bedside as pt is hypotensive 88/42 with HR 79. Pt removes NC and o2 sat drops to 85%. Pt repositioned and NC changed to an oxymask with BP improvement to 90/45 HR 79 and o2 sat 93% on 9L. Breaths are even regular and non labored. No apparent distress noted. Pt states wanting to sleep and not be bothered at this time. Hamer text sent to hospitalist. Monitoring is ongoing.
[2025-02-11] MEDS: Lactated Ringers 1,000 ML 999 ML IV (06:04)
[2025-02-11] MEDS: PHENobarbitaL sodium 130 MG/ML VIAL IM Q3Hx2 185 MG IM ×2 (06:05→09:19)
--- NOTE | 2025-02-11 06:56 | PHA.PROG ---
Admission Date/Time: February 11, 2025 02:03 Indication: respiratory Weight in k kg Adjusted body weight in Kg: [place] body weight in Kg: Obesity Dosing Indication % IBW: Serum Creatinine - Last 168 Hours 02/10/25 02/11/25 23:37 04:50 Creatinine 0.72 0.71 Estimated CrCl and GFR - Last 168 Hours 02/10/25 02/11/25 23:37 04:50 Estim Creat Clear Calc 99.6 101.0 Estimated GFR > 60 > 60 Vancomycin Loading Dose: 1500 Current Vancomycin Dosing Regimen: 1250 Q12H Vancomycin Monitoring using AUC goal of 400 - 600 range with trough as surrogate marker: 569 Date and Time for next Vancomycin Level to be drawn 02/12 @1400 Pharmacist Comments on Vancomycin Plan: Vancomycin dosing will take advantage of [employer] as a clinical decision support tool that uses Bayesian modeling to calculate individual patient's pharmacokinetic parameters and forecast the patient's drug concentration time course with the target goal AUC 24 range of 400 - 600 mg/L/hr.
--- NOTE | 2025-02-11 07:22 | PHA.MEDREC ---
Pharmacy Consult ? Medication Reconciliation Pharmacy has completed the medication reconciliation. Patient eloped on 02/10. Patient found drinking alcohol and was brought to the hospital
--- NOTE | 2025-02-11 07:22 | PHA.MEDREC ---
Addendum entered by Fabio Deras RPh 02/11/25 07:31: Reviewed by [facility] Original Note: Pharmacy Consult ? Medication Reconciliation Pharmacy has completed the medication reconciliation. Patient eloped on 02/10. Patient found drinking alcohol and was brought to the hospital. Patient is a poor historian. Utilized discharge packet to confirm med list.
[2025-02-11] MEDS: 0.9 % Sodium Chloride Flush 3 ML SYRINGE IVFLUSH ×3 (09:19→20:25)
--- NOTE | 2025-02-11 10:13 | PC.NURSE ---
Pt belongings secured in 4th floor locker. Pt aware.
--- NOTE | 2025-02-11 10:57 | P.PNIM_ITS ---
Subjective Subjective Date of Service: 02/11/25 Interval History: no complaints Physical Exam 2 Vital Signs: Vital Signs: Last Vital Signs Temp 98.4 F 02/11/25 08:53 Pulse 82 02/11/25 08:53 Resp 20 02/11/25 08:53 BP 112/56 L 02/11/25 08:53 Pulse Ox 92 02/11/25 08:53 O2 Del Method Oxymask 02/11/25 08:53 O2 Flow Rate 5 02/11/25 08:53 BMI result Body Mass Index 23.1 Const: Other: Constitutional : interactive, not in distress Cardiovascular : no JVP, no lower extremity edema Respiratory : bilateral chest movement, not in resp distress Gastrointestinal: soft, lax, Non tender, mild distention Skin : Warm, Dry Neurological : Alert & oriented , No focal deficit Objective Data Active Medications Acetaminophen (Acetaminophen 325 Mg Tablet) 650 mg PO Q6H PRN PRN Reason: Pain, Mild 1-3,fever,headache Calcium Carbonate (Calcium Carbonate 750 Mg Tab.Chew) 750 mg PO Q4H PRN PRN Reason: Heartburn Folic Acid (Folic Acid 1 Mg Tablet) 1 mg PO DAILY [facility] Piperacillin Sod/Tazobactam (Sod 3.375 gm/ Sodium Chloride) 50 mls @ 100 mls/hr IV Q6H [facility] Last Infusion: 02/11/25 10:14 Dose: Infused Documented By: GUDELIA Vancomycin HCl 1,250 mg/ (Sodium Chloride) 250 mls @ 166.667 mls/hr IV Q12H [facility] Lactulose (Lactulose 20 Gm/30 Ml Solution) 30 gm PO TID [facility] Last Admin: 02/11/25 09:27 Dose: 30 gm Documented By: GUDELIA Magnesium Hydroxide (Milk Of Magnesia 30 Ml Oral.Susp) 30 ml PO DAILY PRN PRN Reason: Constipation Magnesium Oxide (Magnesium Oxide 400 Mg Tablet) 400 mg PO DAILY [facility] Melatonin (Melatonin 3 Mg Tablet) 6 mg PO BEDTIME PRN PRN Reason: Insomnia Omeprazole (Omeprazole 40 Mg Capsule.Dr) 40 mg PO DAILY@0630 [facility] Ondansetron HCl (Ondansetron Hcl 4 Mg/2 Ml Vial) 4 mg IVPUSH Q8H PRN PRN Reason: Nausea and Vomiting Pharmacy Consult (Consult Rx Etoh Phenob Im/Po) 1 each MISCELLANE ONCE PRN; Protocol PRN Reason: Consult order Pharmacy Consult (Consult Rx Vancomycin Dosing) 1 each MISCELLANE DAILY PRN PRN Reason: Consult order Phenobarbital (Phenobarbital 15 Mg Tablet) 45 mg PO BID [facility]; Protocol Stop: 02/12/25 21:01 Phenobarbital (Phenobarbital 15 Mg Tablet) 15 mg PO BID [facility]; Protocol Stop: 02/14/25 21:01 Phenobarbital (Phenobarbital 15 Mg Tablet) 15 mg PO DAILY [facility]; Protocol Stop: 02/16/25 09:01 Sodium Chloride (0.9 % Sodium Chloride Flush 3 Ml Syringe) 3 ml IVFLUSH QSHIFT [facility] Last Admin: 02/11/25 09:19 Dose: 3 ml Documented By: GUDELIA Sucralfate (Sucralfate 1 Gm Tablet) 1 gm PO BID [facility] Thiamine HCl (Thiamine Hcl 100 Mg Tablet) 100 mg PO DAILY [facility] Labs 02/11/25 04:50 02/11/25 04:50 Labs: Laboratory Results - last 24 hr 02/10/25 02/11/25 23:37 04:50 MCV 94.8 99.6 H MCH 31.0 31.0 MCHC 32.7 31.1 RDW 14.6 14.6 Plt Count 53 L 51 L MPV 11.0 11.2 Immature Gran % (Auto) 0.3 0.4 Neut % (Auto) 55.6 47.4 Lymph % (Auto) 29.1 34.2 [place] % (Auto) 9.6 11.8 H Eos % (Auto) 4.8 H 5.5 H Baso % (Auto) 0.6 0.7 Lymph # (Auto) 1.0 L 0.9 L [place] # (Auto) 0.3 0.3 Eos # (Auto) 0.2 0.2 Baso # (Auto) 0.0 0.0 Abs Immat Gran (auto) 0.01 0.01 Absolute Neuts (auto) 2.0 1.3 L Absolute Nucleated RBC 0.000 0.000 Nucleated RBC % (auto) 0.0 0.0 Anion Gap 13 12 Estim Creat Clear Calc 99.6 101.0 Estimated GFR > 60 > 60 Random Glucose 92 80 Calcium 8.5 8.2 L Magnesium 1.7 Total Bilirubin 0.4 AST 26 ALT < 6 Alkaline Phosphatase 83 Ammonia 48 Total Protein 6.8 Albumin 3.2 L Ethyl Alcohol 213 Assessment and Plan (1) Alcohol use disorder: Status: Acute Plan 55M PMH alcohol dependence, alcoholic cirrhosis, GERD presented same day after eloping for alcohol withdrawal and bilateral pneumonia with hypoxia Acute hypoxic respiratory failure secondary to bilateral pneumonia Continue vancomycin and Zosyn, follow up cultures, wean O2 as tolerated Alcohol dependence with withdrawal and alcohol cirrhosis complicated by pancytopenia, coagulopathy, hepatic encephalopathy We will hold off on phenobarb, monitor CIWA, continue lactulose GERD PPI DVT prophylaxis-mechanical due to thrombocytopenia Full Code reason for continued hospitalization: Hypoxia Quality Stroke Does the patient have a stroke diagnosis?: No VTE Prior VTE?: No VTE Risk Level:: Medical - moderate - high VTE Device Contraindication: N/A - Device Ordered VTE Drug Contraindication: Treatment Not Indicated
--- NOTE | 2025-02-11 11:33 | MHC.CM.PN ---
CM MET WITH PT AT BEDSIDE. PT IS HOMELESS AND JUST WENT AMA FROM [facility] [place]DAY. PT CONTINUES TO DECLINE STR IF RECOMMENDED BUT WOULD PREFER RETURN TO THE STREET. ADDICTION MEDICINE TO SEE. +HCP ON FILE AND VERIFIED. PCP [facility] PROVIDER. DP: RETURN TO THE STREETS VS LONGTERM VS I/P REHAB FOR ETOH? CM WILL CONTINUE TO FOLLOW FOR PLAN.
--- NOTE | 2025-02-11 11:58 | P.CDIM_ITS ---
PROVIDER RESPONSE TEXT: To clarify, the appropriate diagnosis supported by the clinical indicators: Diastolic: acute on chronic QUERY TEXT: PHYSICIAN'S DOCUMENTATION REQUEST Date of Query: 02/11/2025 11:47 AM EDT Patient Name: Charbel Delgado Admit Date: 02/11/2025 Dear Rolan Baker MD, A review of the medical record indicates additional documentation may be needed. Please review below and update the documentation accordingly. Clinical Indicators: ED and H&P 02/10/25 within the patient's Past Medical History: Congestive heart failure History of Echo performed. Furosemide 40 mg IVPUSH BID Please provide further specificity regarding the most likely type and acuity of CHF noted within the medical record, if known: Systolic Please specify if Acute, Chronic, or Acute on chronic, or Unable to determine Diastolic Please specify if Acute, Chronic, or Acute on chronic, or Unable to determine Combined Systolic/Diastolic Please specify if Acute, Chronic, or Acute on chronic, or Unable to determine Other (explain) Clinically unable to determine (explain) Thank you, Rina Gutierrez, CCS, CDIS Use of terms such as suspected, likely, concern for, or probable (associated with a specific diagnosi s that is being evaluated, monitored, or treated as if it exists) are acceptable and can be coded in the inpatient se tting, when documented at the time of discharge. Please use your independent medical judgment in providing your response. THIS QUERY IS PART OF THE PERMANENT MEDICAL RECORD
--- NOTE | 2025-02-11 13:00 | HO.ADDICTCON ---
History of Present Illness Date of Service: 02/11/2025 Chief Complaint: alcohol use Reason for Consult: AUD Sources of Information: patient interviewed and chart reviewed HPI Narrative: Patient is a 55 year old male, who is medically admitted with pneumonia and alcohol withdrawal--patient eloped on 02/10 in AM and represented to ED, via ambulance, on 02/10 in the evening, intoxicated. Patient seen in room 370. Limited insight related to alcohol use and impact on overall health. Decreasing or cessation is not a goal for him. Discussed leaving hospital before completing treatment, he reported it was hard to walk and breath . Reminded patient of pneumonia and benefits of remaining in the hospital, he replied that it is hard for him to stay in one place. Pheno taper in place Most recent CIWA score 2 Appearing comfortable when seen by t/w AUDIT-C Brief Intervention This fiction and nonfiction writer prose met with patient to discuss current alcohol use and concerns related to increased risk of alcohol related problems. Discussed how alcohol use has impacted health, including negative impact on mental health and overall physical wellbeing. Discussed risk reduction strategies including drinking below the recommended limit. Past Psychiatric History: hx of 3 prior detox admissions for alcohol use. does not have outpatient psychiatric providers Pt reports hx of one SI attempt via overdose on pills at the age of 17. Review of Systems Constitutional: Reports as per HPI Diagnostics Vital Signs (24Hr): Vital Signs - 24 hr 02/10/25 21:38 02/10/25 21:42 02/10/25 21:56 Temperature 98.8 F 98.8 F Pulse Rate 79 79 Respiratory Rate 16 16 Blood Pressure 134/54 L 134/54 L Pulse Oximetry 90 L 90 L 95 Oxygen Delivery Method Room Air Room Air Nasal Cannula Oxygen Flow Rate 2 02/10/25 23:42 02/11/25 05:17 02/11/25 08:21 Temperature 98.2 F 98.7 F Pulse Rate 80 81 78 Respiratory Rate 16 20 24 H Blood Pressure 96/48 L 107/56 L Pulse Oximetry 97 94 97 Oxygen Delivery Method Nasal Cannula Oxymask Non-Rebreather Mask Oxygen Flow Rate 6 4 9 02/11/25 08:53 Temperature 98.4 F Pulse Rate 82 Respiratory Rate 20 Blood Pressure 112/56 L Pulse Oximetry 92 Oxygen Delivery Method Oxymask Oxygen Flow Rate 5 BMI result Body Mass Index 23.1 Labs 02/11/25 04:50 02/11/25 04:50 Labs: Laboratory Results - last 48 hr 02/10/25 02/11/25 23:37 04:50 WBC 3.5 L 2.7 L RBC 2.32 L 2.29 L Hgb 7.2 L 7.1 L Hct 22.0 L 22.8 L MCV 94.8 99.6 H MCH 31.0 31.0 MCHC 32.7 31.1 RDW 14.6 14.6 Plt Count 53 L 51 L MPV 11.0 11.2 Immature Gran % (Auto) 0.3 0.4 Neut % (Auto) 55.6 47.4 Lymph % (Auto) 29.1 34.2 [place] % (Auto) 9.6 11.8 H Eos % (Auto) 4.8 H 5.5 H Baso % (Auto) 0.6 0.7 Lymph # (Auto) 1.0 L 0.9 L [place] # (Auto) 0.3 0.3 Eos # (Auto) 0.2 0.2 Baso # (Auto) 0.0 0.0 Abs Immat Gran (auto) 0.01 0.01 Absolute Neuts (auto) 2.0 1.3 L Absolute Nucleated RBC 0.000 0.000 Nucleated RBC % (auto) 0.0 0.0 Sodium 137 139 Potassium 3.9 3.7 Chloride 112 H 117 H Carbon Dioxide 16 L 14 L Anion Gap 13 12 BUN 10 9 Creatinine 0.72 0.71 Estim Creat Clear Calc 99.6 101.0 Estimated GFR > 60 > 60 Random Glucose 92 80 Calcium 8.5 8.2 L Magnesium 1.7 Total Bilirubin 0.4 AST 26 ALT < 6 Alkaline Phosphatase 83 Ammonia 48 Total Protein 6.8 Albumin 3.2 L Ethyl Alcohol 213 Imaging Radiology Impressions: ITS Impressions Chest X-Ray 02/11/25 11:05 IMPRESSION: 1. Cardiomegaly and pulmonary vascular congestion. 2. More focal airspace opacity in the left lower lobe compatible with pneumonia. Electronically signed by: Dony Nunn MD 02/11/2025 11:16 AM EDT RP Mental Status Exam Mental Status Exam Patient Orientation: Person and Place Level of Consciousness: Awake Patient Behavior: Appropriate Affect Description: Calm Speech Pattern: Clear Hallucinations: None Thought Content: positive for [place] Judgement: Fair Medications Medications Current Medications Acetaminophen (Acetaminophen 325 Mg Tablet) 650 mg PO Q6H PRN PRN Reason: Pain, Mild 1-3,fever,headache Calcium Carbonate (Calcium Carbonate 750 Mg Tab.Chew) 750 mg PO Q4H PRN PRN Reason: Heartburn Folic Acid (Folic Acid 1 Mg Tablet) 1 mg PO DAILY [facility] Furosemide (Furosemide 40 Mg/4 Ml Vial) 40 mg IVPUSH BID@0900,1800 [facility]; Protocol Piperacillin Sod/Tazobactam (Sod 3.375 gm/ Sodium Chloride) 50 mls @ 100 mls/hr IV Q6H [facility] Last Infusion: 02/11/25 10:14 Dose: Infused Vancomycin HCl 1,250 mg/ (Sodium Chloride) 250 mls @ 166.667 mls/hr IV Q12H [facility] Lactulose (Lactulose 20 Gm/30 Ml Solution) 30 gm PO TID [facility] Last Admin: 02/11/25 09:27 Dose: 30 gm Magnesium Hydroxide (Milk Of Magnesia 30 Ml Oral.Susp) 30 ml PO DAILY PRN PRN Reason: Constipation Magnesium Oxide (Magnesium Oxide 400 Mg Tablet) 400 mg PO DAILY [facility] Melatonin (Melatonin 3 Mg Tablet) 6 mg PO BEDTIME PRN PRN Reason: Insomnia Omeprazole (Omeprazole 40 Mg Capsule.Dr) 40 mg PO DAILY@0630 [facility] Ondansetron HCl (Ondansetron Hcl 4 Mg/2 Ml Vial) 4 mg IVPUSH Q8H PRN PRN Reason: Nausea and Vomiting Pharmacy Consult (Consult Rx Etoh Phenob Im/Po) 1 each MISCELLANE ONCE PRN; Protocol PRN Reason: Consult order Pharmacy Consult (Consult Rx Vancomycin Dosing) 1 each MISCELLANE DAILY PRN PRN Reason: Consult order Phenobarbital (Phenobarbital 15 Mg Tablet) 45 mg PO BID [facility]; Protocol Stop: 02/12/25 21:01 Phenobarbital (Phenobarbital 15 Mg Tablet) 15 mg PO BID [facility]; Protocol Stop: 02/14/25 21:01 Phenobarbital (Phenobarbital 15 Mg Tablet) 15 mg PO DAILY [facility]; Protocol Stop: 02/16/25 09:01 Sodium Chloride (0.9 % Sodium Chloride Flush 3 Ml Syringe) 3 ml IVFLUSH QSHIFT [facility] Last Admin: 02/11/25 09:19 Dose: 3 ml Sucralfate (Sucralfate 1 Gm Tablet) 1 gm PO BID [facility] Thiamine HCl (Thiamine Hcl 100 Mg Tablet) 100 mg PO DAILY [facility] Allergies Allergies Allergy/AdvReac Type Severity Reaction Status Date / Time No Known Allergies Allergy Verified 02/10/25 21:45 [No Known Allergies*] Assessment & Plan Assessment & Plan (1) Alcohol use disorder: Status: Acute Code(s): F10.90 - Alcohol use, unspecified, uncomplicated Assessment and Plan: pheno taper in place limited insight regarding current health concerns (pneumonia and diff ambulating) and how alcohol impacts 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 PMF Past Medical History Medical History Alcohol use disorder Pneumonia Alcohol withdrawal syndrome Pancytopenia Alcohol abuse Thrombocytopenia Esophageal varices Acute on chronic anemia Alcoholic liver disease Aspiration pneumonia Thrombocytopenia Malnutrition CHF (congestive heart failure) Anemia Hypomagnesemia Cirrhosis Thrombocytopenia Acute on chronic anemia CHF (congestive heart failure) Anemia Alcohol abuse Surgical History Surgical History No history of previous surgery Social History Social History Household Members: None Household Members Other:: homeless Housing: Homeless Housing Other:: Homeless custodial Unable to assess alcohol history related to: Refusing to respond Alcohol intake: current Alcohol intake frequency: 3 or more drinks per day Alcohol type: beer Comment: 1 assist to bathroom Patient Tobacco Use Status: Former Tobacco user Tobacco use type: Cigarette Second Hand Smoke Exposure: No Advance Directives Date on File: 07/03/23 service: No
--- NOTE | 2025-02-11 15:19 | PC.NURSE ---
Addendum entered by Paula Del Toro RN 02/11/25 17:46: At this time MD also made aware PO phenobarb dose is being held due to SBP <100. Clarification of Phenobarb order was asked by this RN, as MD note from this morning states hold off on phenobarb , per MD Baker via tiger text, administration of phenobarb dependent upon BP and CIWA scores. Original Note: MD Baker made aware pt BP 94/50, oral temp 98.4 and axillary temp 100.4. PRN tylenol given. Pending effectiveness.
[2025-02-11] MEDS: Acetaminophen 325 MG TABLET 650 MG PO (15:23)
[2025-02-11] MEDS: vancomycin HCL 1,250 MG in 0.9 % Sodium Chloride 250 ML 166.67 MG IV (16:37)
--- NOTE | 2025-02-11 17:38 | PC.NURSE ---
Addendum entered by Paula Del Toro RN 02/11/25 18:36: Correction, 83% on room air* Original Note: Pt BP continues to be soft, last reading 98/52. Upon assessment pt has +2 pitting edema in ankles and LE, and crackles in bases, on 5L oxy mask saturating 90-92%, 93% on RA no change from this AMs assessment. Per MD Olivia gonzalez to give IVP Lasix.
[2025-02-11] MEDS: Furosemide 40 MG/4 ML VIAL IVPUSH (17:42)
--- NOTE | 2025-02-11 20:14 | PC.NURSE ---
patients BP 98/56. Dr. Hogan notified, held 21:00 phenobarbital dose.
[2025-02-11] MEDS: Sucralfate 1 GM TABLET PO (20:21)
[2025-02-12] MEDS: Piperacillin Sodium/Tazobactam 3.375 GM in 0.9 % Sodium Chloride 50 ML IV ×4 (01:48→20:02)
[2025-02-12 03:07] VITALS: BP 102/52; PULSE 72; RESP 20; TEMP 37; O2SAT 99
[2025-02-12] MEDS: vancomycin HCL 1,250 MG in 0.9 % Sodium Chloride 250 ML 166.67 MG IV (04:24)
[2025-02-12 05:37] LABS: Hematocrit 23.2 % (42.0-52.0); Hemoglobin 7.3 g/dl (14.0-18.0); Mean Corpuscular HGB Conc 31.5 g/dl (31.0-36.0); Mean Corpuscular Hemoglobin 30.3 pg (27.0-33.0); Mean Corpuscular Volume 96.3 fL (80.0-98.0); Mean Platelet Volume 11.9 fL (9.4-12.4); Platelet Count 54 X10*3/uL (160-400); Red Blood Count 2.41 X10*6/uL (4.60-5.80); Red Cell Distribution Width 14.5 % (11.0-16.0); White Blood Count 2.7 X10*3/uL (4.8-10.8)
[2025-02-12] MEDS: Omeprazole 40 MG CAPSULE.DR PO (05:55)
[2025-02-12 05:56] LABS: Anion Gap 11 (12-20); Blood Urea Nitrogen 12 mg/dL (9-16); Calcium 8.4 mg/dL (8.4-10.2); Carbon Dioxide 19 mmol/L (22-29); Chloride 116 mmol/L (96-108); Creatinine Clr Calc Pharmacy 90.8; Estimated Glomerular Filt Rate > 60; Glucose Random 82 mg/dL (60-115); Potassium 3.6 mmol/L (3.3-5.1); Sodium 142 mmol/L (135-145)
[2025-02-12 07:33] VITALS: BP 96/54; PULSE 72; RESP 16; TEMP 37.9; O2SAT 98
[2025-02-12] MEDS: Lactulose 20 GM/30 ML SOLUTION 30 GM PO (08:17)
[2025-02-12] MEDS: Folic Acid 1 MG TABLET PO (08:17)
[2025-02-12] MEDS: Thiamine HCL 100 MG TABLET PO (08:17)
[2025-02-12] MEDS: Sucralfate 1 GM TABLET PO ×2 (08:17→20:01)
[2025-02-12] MEDS: Magnesium Oxide 400 MG TABLET PO (08:17)
[2025-02-12] MEDS: 0.9 % Sodium Chloride Flush 3 ML SYRINGE IVFLUSH ×2 (08:23→20:04)
--- NOTE | 2025-02-12 09:02 | HO.PM.IMPN ---
Subjective Subjective Date of Service: 02/12/25 Interval History: no complaints, still on o2 Physical Exam Vital Signs: Vital Signs: Last Vital Signs Temp 100.2 F 02/12/25 07:33 Pulse 72 02/12/25 07:33 Resp 16 02/12/25 07:33 BP 96/54 L 02/12/25 07:33 Pulse Ox 98 02/12/25 07:33 O2 Del Method Oxymask 02/12/25 07:33 O2 Flow Rate 5 02/12/25 07:33 BMI result Body Mass Index 23.1 Const: Other: Constitutional : interactive, not in distress Cardiovascular : no JVP, no lower extremity edema Respiratory : bilateral chest movement, not in resp distress Gastrointestinal: soft, lax, Non tender, mild distention Skin : Warm, Dry Neurological : Alert & oriented , No focal deficit Objective Data Active Medications Acetaminophen (Acetaminophen 325 Mg Tablet) 650 mg PO Q6H PRN PRN Reason: Pain, Mild 1-3,fever,headache Last Admin: 02/11/25 15:23 Dose: 650 mg Documented By: GUDELIA Calcium Carbonate (Calcium Carbonate 750 Mg Tab.Chew) 750 mg PO Q4H PRN PRN Reason: Heartburn Folic Acid (Folic Acid 1 Mg Tablet) 1 mg PO DAILY [facility] Last Admin: 02/12/25 08:17 Dose: 1 mg Documented By: ROSANNE Furosemide (Furosemide 40 Mg/4 Ml Vial) 40 mg IVPUSH BID@0900,1800 [facility]; Protocol Last Admin: 02/12/25 07:52 Dose: Not Given Documented By: ROSANNE Non-Admin Reason: Physician Held Med Piperacillin Sod/Tazobactam (Sod 3.375 gm/ Sodium Chloride) 50 mls @ 100 mls/hr IV Q6H [facility] Last Admin: 02/12/25 08:17 Dose: 100 mls/hr Documented By: ROSANNE Vancomycin HCl 1,250 mg/ (Sodium Chloride) 250 mls @ 166.667 mls/hr IV Q12H [facility] Last Infusion: 02/12/25 05:59 Dose: Infused Documented By: DEVAUGHN Lactulose (Lactulose 20 Gm/30 Ml Solution) 30 gm PO TID [facility] Last Admin: 02/12/25 08:17 Dose: 30 gm Documented By: ROSANNE Magnesium Hydroxide (Milk Of Magnesia 30 Ml Oral.Susp) 30 ml PO DAILY PRN PRN Reason: Constipation Magnesium Oxide (Magnesium Oxide 400 Mg Tablet) 400 mg PO DAILY [facility] Last Admin: 02/12/25 08:17 Dose: 400 mg Documented By: ROSANNE Melatonin (Melatonin 3 Mg Tablet) 6 mg PO BEDTIME PRN PRN Reason: Insomnia Omeprazole (Omeprazole 40 Mg Capsule.Dr) 40 mg PO DAILY@0630 [facility] Last Admin: 02/12/25 05:55 Dose: 40 mg Documented By: DEVAUGHN Ondansetron HCl (Ondansetron Hcl 4 Mg/2 Ml Vial) 4 mg IVPUSH Q8H PRN PRN Reason: Nausea and Vomiting Pharmacy Consult (Consult Rx Etoh Phenob Im/Po) 1 each MISCELLANE ONCE PRN; Protocol PRN Reason: Consult order Pharmacy Consult (Consult Rx Vancomycin Dosing) 1 each MISCELLANE DAILY PRN PRN Reason: Consult order Phenobarbital (Phenobarbital 15 Mg Tablet) 45 mg PO BID [facility]; Protocol Stop: 02/12/25 21:01 Last Admin: 02/12/25 07:53 Dose: Not Given Documented By: ROSANNE Non-Admin Reason: Physician Held Med Phenobarbital (Phenobarbital 15 Mg Tablet) 15 mg PO BID [facility]; Protocol Stop: 02/14/25 21:01 Phenobarbital (Phenobarbital 15 Mg Tablet) 15 mg PO DAILY [facility]; Protocol Stop: 02/16/25 09:01 Sodium Chloride (0.9 % Sodium Chloride Flush 3 Ml Syringe) [facility] Last Admin: 02/12/25 08:23 Dose: 3 ml Documented By: ROSANNE Sucralfate (Sucralfate 1 Gm Tablet) 1 gm PO BID [facility] Last Admin: 02/12/25 08:17 Dose: 1 gm Documented By: ROSANNE Thiamine HCl (Thiamine Hcl 100 Mg Tablet) 100 mg PO DAILY [facility] Last Admin: 02/12/25 08:17 Dose: 100 mg Documented By: ROSANNE Labs 02/12/25 05:21 02/12/25 05:21 Labs: Laboratory Results - last 24 hr 02/12/25 05:21 MCV 96.3 MCH 30.3 MCHC 31.5 RDW 14.5 Plt Count 54 L MPV 11.9 Absolute Nucleated RBC 0.000 Nucleated RBC % (auto) 0.0 Anion Gap 11 L Estim Creat Clear Calc 90.8 Estimated GFR > 60 Random Glucose 82 Calcium 8.4 Assessment and Plan (1) Alcohol use disorder: Status: Acute Plan 55M PMH alcohol dependence, alcoholic cirrhosis, GERD presented same day after eloping for alcohol withdrawal and bilateral pneumonia with hypoxia Acute hypoxic respiratory failure secondary to bilateral pneumonia and acute on chronic diastolic chf Continue Zosyn, mrsa swab negative will dc vanc follow up cultures, wean O2 as tolerated diuresed with iv lasix, will change to po 40mg daily Alcohol dependence with withdrawal and alcohol cirrhosis complicated by pancytopenia, coagulopathy, hepatic encephalopathy holding off on further phenobarb, monitor CIWA, continue lactulose GERD PPI DVT prophylaxis-mechanical due to thrombocytopenia Full Code reason for continued hospitalization: Hypoxia Quality Stroke Does the patient have a stroke diagnosis?: No VTE Prior VTE?: No VTE Risk Level:: Medical - moderate - high VTE Device Contraindication: N/A - Device Ordered VTE Drug Contraindication: Treatment Not Indicated
[2025-02-12 10:58] VITALS: O2SAT 90
--- NOTE | 2025-02-12 14:28 | MHC.CM.PN ---
EMR REVIEWED AND PER MD ROUNDS, PT HAS NOT BEEN MEDICALLY CLEARED FOR DC (STILL ON RX) CM WILL CONTINUE TO FOLLOW FOR ANY CHANGE TO DC PLAN
[2025-02-12 15:18] VITALS: BP 97/54; PULSE 82; RESP 18; TEMP 36.8; O2SAT 95
[2025-02-12 15:35] VITALS: O2SAT 90
[2025-02-12 19:02] VITALS: BP 100/44; PULSE 90; RESP 16; TEMP 37.2; O2SAT 91
[2025-02-13] MEDS: Piperacillin Sodium/Tazobactam 3.375 GM in 0.9 % Sodium Chloride 50 ML IV ×2 (02:59→07:53)
[2025-02-13 03:09] VITALS: BP 98/52; PULSE 80; RESP 18; TEMP 36.4; O2SAT 93
[2025-02-13] MEDS: Omeprazole 40 MG CAPSULE.DR PO (05:59)
[2025-02-13 06:23] LABS: Hematocrit 24.3 % (42.0-52.0); Hemoglobin 7.8 g/dl (14.0-18.0); Mean Corpuscular HGB Conc 32.1 g/dl (31.0-36.0); Mean Corpuscular Volume 96.4 fL (80.0-98.0); Mean Platelet Volume 12.4 fL (9.4-12.4); Red Blood Count 2.52 X10*6/uL (4.60-5.80); Red Cell Distribution Width 14.6 % (11.0-16.0); White Blood Count 3.3 X10*3/uL (4.8-10.8)
[2025-02-13 06:25] LABS: Platelet Count 56 X10*3/uL (160-400)
[2025-02-13 06:26] LABS: Anion Gap 9 (12-20); Blood Urea Nitrogen 13 mg/dL (9-16); Calcium 8.4 mg/dL (8.4-10.2); Carbon Dioxide 21 mmol/L (22-29); Chloride 115 mmol/L (96-108); Creatinine Clr Calc Pharmacy 103.9; Estimated Glomerular Filt Rate > 60; Glucose Random 83 mg/dL (60-115); Potassium 3.8 mmol/L (3.3-5.1); Sodium 141 mmol/L (135-145)
[2025-02-13 07:25] VITALS: BP 110/60; PULSE 74; RESP 18; TEMP 37.4; O2SAT 92
[2025-02-13] MEDS: 0.9 % Sodium Chloride Flush 3 ML SYRINGE IVFLUSH (07:53)
[2025-02-13] MEDS: Furosemide 40 MG TABLET PO (08:00)
[2025-02-13] MEDS: Magnesium Oxide 400 MG TABLET PO (08:00)
[2025-02-13] MEDS: Sucralfate 1 GM TABLET PO (08:00)
[2025-02-13] MEDS: Folic Acid 1 MG TABLET PO (08:00)
[2025-02-13] MEDS: Thiamine HCL 100 MG TABLET PO (08:02)
--- NOTE | 2025-02-13 11:38 | PM.DS ---
DS: Providers Provider Date of Service: 02/13/25 Date of admission: 02/11/25 02:03 Date of discharge: 02/13/25 Primary care physician: [facility] Consults: 02/11/25 02:07 Addiction Medicine Provider Routine Consulting Provider: Arpit Sharp Reason for consultation: alcohol use disorder 02/12/25 08:10 Inpt - Recovery Team Routine Comment: Reason for consultation: LUCAS eval DS: Diagnosis Discharge Diagnosis (1) Alcohol use disorder: Status: Acute (2) Pneumonia: Status: Acute (3) Hypoxia: Status: Acute (4) Alcohol abuse: Status: Acute DS: Summary Hospital Course Hospital Course: Admission note HPI This is a 55-year-old male with pertinent history of alcohol use disorder with alcoholic cirrhosis, gastroesophageal reflux disease who presented to the emergency department after alcohol intoxication. Patient was recently admitted on 02/08 with acute hypoxemic respiratory failure due to bilateral pneumonia. Patient eloped on 02/10. Patient found drinking alcohol and was brought to the hospital.. He appears intoxicated and not willing to participate in conversation or follow commands. Patient is requiring supplemental oxygen in the ER. Unable to obtain history or review of systems. Hospital course The patient was admitted for treatment of Acute hypoxic respiratory failure secondary to bilateral pneumonia and acute on chronic diastolic chf responded well to IV Zosyn as mrsa swab negative Vancomycin was discontinued. he was weaned off O2 and was albe to ambulate on rrom air. blood cultures remained negative. diuresed with iv lasix, then changed to po while inpatient. to be discharged on Spironolactone for fluid overload management. For Alcohol dependence with withdrawal and alcohol cirrhosis complicated by pancytopenia, coagulopathy, hepatic encephalopathy he was monitored on CIWA and did not need phenobarb protocol. continued lactulose but he refused. Advised to quit alcohol this time again. Discharge plan Advised to quit drinking Alcohol Take Levaquin for 12 more days to finish total of 2 weeks of antibiotics The patient carries high risk for recurrent admissions. Time Attestation Discharge Coordination Time (in mins): 42 Quality: Safe Use of Opioids Does Pt have an Active Cancer Diagnosis on the Problem List?: No Quality: Stroke Does the patient have a stroke diagnosis?: No Physical Exam Vital Signs: Vital Signs: Last Vital Signs Temp 99.3 F 02/13/25 07:25 Pulse 74 02/13/25 07:25 Resp 18 02/13/25 07:25 BP 110/60 02/13/25 07:25 Pulse Ox 92 02/13/25 07:25 O2 Del Method Nasal Cannula 02/13/25 07:25 O2 Flow Rate 2 02/13/25 07:25 BMI result Body Mass Index 23.1 Const: Other: Constitutional : interactive, not in distress Cardiovascular : no JVP, no lower extremity edema Respiratory : bilateral chest movement, not in resp distress Gastrointestinal: soft, lax, Non tender Skin : Warm, Dry Neurological : Alert & oriented , No focal deficit DS: Data Data Completed and Pending Completed studies during hospitalization [Text1]: Procedures Control Bleeding in Gastrointestinal Tract, Via Natural or Artificial Opening Endoscopic (08/29/23) Control Bleeding in Nasal Mucosa and Soft Tissue, Via Natural or Artificial Opening (11/29/24) Detoxification Services for Substance Abuse Treatment (02/01/25) Drainage of Peritoneal Cavity, Percutaneous Approach (10/21/24) Excision of Ascending Colon, Via Natural or Artificial Opening Endoscopic, Diagnostic (08/03/23) Excision of Descending Colon, Via Natural or Artificial Opening Endoscopic, Diagnostic (08/03/23) Insertion of Infusion Device into Upper Vein, Percutaneous Approach (08/29/23) Introduction of Mineral-based Topical Hemostatic Agent into Lower GI, Via Natural or Artificial Opening Endoscopic, [employer] (08/03/23) Introduction of Mineral-based Topical Hemostatic Agent into Upper GI, Via Natural or Artificial Opening Endoscopic, [employer] (08/29/23) Occlusion of Esophageal Vein with Extraluminal Device, Via Natural or Artificial Opening Endoscopic (11/29/24) Occlusion of Esophageal Vein, Via Natural or Artificial Opening Endoscopic (01/22/24) Transfusion of Nonautologous Plasma Cryoprecipitate into Peripheral Vein, Percutaneous Approach (08/03/23) Transfusion of Nonautologous Platelets into Peripheral Vein, Percutaneous Approach (11/29/24) Transfusion of Nonautologous Red Blood Cells into Peripheral Vein, Percutaneous Approach (11/29/24) Labs on day of discharge: Laboratory Results - last 24 hr 02/13/25 05:28 WBC 3.3 L RBC 2.52 L Hgb 7.8 L Hct 24.3 L MCV 96.4 MCH 31.0 MCHC 32.1 RDW 14.6 Plt Count 56 L MPV 12.4 Absolute Nucleated RBC 0.000 Nucleated RBC % (auto) 0.0 Sodium 141 Potassium 3.8 Chloride 115 H Carbon Dioxide 21 L Anion Gap 9 L BUN 13 Creatinine 0.69 Estim Creat Clear Calc 103.9 Estimated GFR > 60 Random Glucose 83 Calcium 8.4 Imaging Chest x-ray: Radiologist's impression: ITS Impressions Chest X-Ray 02/11/25 11:05 IMPRESSION: 1. Cardiomegaly and pulmonary vascular congestion. 2. More focal airspace opacity in the left lower lobe compatible with pneumonia. Electronically signed by: Dony Nunn MD 02/11/2025 11:16 AM EDT RP Discharge Plan Discharge Anticipated Discharge Date/Time: 02/13/25 11:32 Patient Disposition: Detention Discharge Diagnosis: Pneumonia Referrals: [facility] [Primary Care Provider] - 1 Week Discharge Medications: New levofloxacin 750 mg tablet 750 mg PO DAILY Qty: 12 0RF spironolactone 25 mg tablet 25 mg PO DAILY Qty: 90 0RF Continued sucralfate [Carafate] 1 gram tablet 1 g PO BID Qty: 60 0RF acetaminophen 325 mg Tablet 975 mg PO Q6H PRN (Reason: Pain, Mild 1-3,Fever,Headache) Qty: 30 0RF magnesium oxide 400 mg (241.3 mg magnesium) Tablet 400 mg PO DAILY Qty: 30 0RF [place] Nasal 0.65 % Aerosol,[place] 1 spray intranasal Q1H PRN (Reason: Dryness) Qty: 44 0RF lactulose 10 gram/15 mL solution 30 ml PO TID omeprazole 40 mg capsule,delayed release(DR/EC) 40 mg PO DAILY@0630 folic acid 1 mg Tablet 1 mg PO DAILY Qty: 90 0RF thiamine mononitrate (vit B1) 100 mg Tablet 100 mg PO DAILY Qty: 90 0RF Discharge Orders: Discharge Order (Routine); Ordered 02/13/25 Ordered By: Emily Lawrence Diet: Advance to usual diet Activity on Discharge: As tolerated Stand Alone Forms: Patient Portal Discharge page Print Language: Mongolian Care Plan Goals: Levofloxacin for pneumoia Quit alcohol Spironolactony for fluid overload management. Health Concerns: Aspiration pneumonia Plan of Treatment: Antibiotic Assessment: as above
--- NOTE | 2025-02-13 11:41 | MHC.CM.PN ---
Patient medically cleared for dc. He declines CM assistance w/ jail placement. States he has a jail bed on [facility] that he goes to regularly. Declines assist w/ transportation, prefers to walk. RN aware. Reports he has warm clothing.
== END 2025-02-13 12:18 | disposition home or self-care (01) | DRG 139 ==
LOC: HO.ED 23:35 → HO.EDOVER 02-11 02:05 → HO.S3 02-11 07:29
PROVIDERS: Internal Medicine; Physician Assistant Medical; Admitting Provider Student in an Organized Health Care Education/Training Program; Emergency Provider Internal Medicine; Visit Provider Student in an Organized Health Care Education/Training Program
DX: J18.9 Pneumonia, unspecified organism (principal); J96.01 Acute respiratory failure with hypoxia; I50.33 Acute on chronic diastolic (congestive) heart failure; D61.818 Other pancytopenia; K76.82 Hepatic encephalopathy; Y90.7 Blood alcohol level of 200-239 mg/100 ml; K70.30 Alcoholic cirrhosis of liver without ascites; F10.229 Alcohol dependence with intoxication, unspecified; F10.239 Alcohol dependence with withdrawal, unspecified; D68.4 Acquired coagulation factor deficiency; K21.9 Gastro-esophageal reflux disease without esophagitis; Z59.01 Sheltered homelessness; Z87.891 Personal history of nicotine dependence; Z79.899 Other long term (current) drug therapy
CPT/HCPCS: 36415; 71045; 80048; 80053; 80307; 82140; 83735; 85025; 85027; 99285; J1940; J2543; J2560; J3371; J3411; J7120; S9485

== ENCOUNTER 2025-02-11 02:03 | Outpatient (BNV) | payer MEDICAID, SELFPAY | END 2025-02-11 11:05 | PROVIDERS: Admitting Provider Student in an Organized Health Care Education/Training Program; Emergency Provider Internal Medicine; Visit Provider Radiology Diagnostic Radiology | DX: R09.02 Hypoxemia (principal); I51.7 Cardiomegaly | CPT/HCPCS: 71045 ==

== ENCOUNTER → 2025-02-11 02:03 | Outpatient (BNV) | payer MEDICAID, SELFPAY | PROVIDERS: Admitting Provider Student in an Organized Health Care Education/Training Program; Emergency Provider Internal Medicine; Visit Provider Student in an Organized Health Care Education/Training Program | DX: F10.130 Alcohol abuse with withdrawal, uncomplicated (principal); J18.9 Pneumonia, unspecified organism; J96.01 Acute respiratory failure with hypoxia; F10.10 Alcohol abuse, uncomplicated | CPT/HCPCS: 99223; 99232; 99239; 99499 ==

== ENCOUNTER → 2025-02-11 02:03 | Outpatient (BNV) | payer MEDICAID, SELFPAY | PROVIDERS: Admitting Provider Student in an Organized Health Care Education/Training Program; Emergency Provider Internal Medicine; Visit Provider Nurse Practitioner Psychiatric/Mental Health | DX: F10.90 Alcohol use, unspecified, uncomplicated (principal) | CPT/HCPCS: 99221 ==

== ENCOUNTER 2025-02-15 01:59 | Inpatient (IN) | payer MEDICAID, SELFPAY ==
[2025-02-15] VITALS (13 sets, daily range): BP systolic 92–109; BP diastolic 36–72; PULSE 69–89; RESP 17–18; TEMP 36.4–37.2; O2SAT 79–98; BMI 24.3
--- NOTE | ~2025-02-15 | XR_ITS ---
CLINICAL HISTORY: sob 1 view chest x-ray Comparison: CR/SR - XR CHEST 1V - 02/11/25 11:05 EDT Findings: There is persistent but improving opacity in the left lower lobe. There is new patchy opacity in the right upper lobe. No pneumothorax or large pleural effusion. Stable cardiomegaly. There is mild pulmonary vascular congestion. No acute fracture. IMPRESSION: 1. Mild CHF. 2. Right upper and left lower lobe opacities suggesting superimposed inflammatory or infectious process. This document has been electronically signed by: Rosa Wallace DO on 02/15/2025 11:05:19
--- OUTSIDE RECORDS SUMMARY | 2025-02-15 02:48 | XMS_ITS | Encounter Summary ---
Author Organization [facility] Address [address] [place] [address] [address] [place] [address] Care Team Providers Care Machine Welt Butter Name Role Phone Unavailable Primary Care Provider Unavailabl e Encounter Details Date Type Department Care Team (Late st Contact Info) Description 02/11/2025 Orders Only [facility] External Provider, [facility] Social History Tobacco Use Types Packs/Day Years Used Date Smoking Tobacco: Never Assessed Sex and Gender Information Value Date Recorded Sex Assigned at Male 11/23/2022 11:29 AM EST Legal Sex Male 11:26 AM EST Gender Identity Male 11/23/2022 11:29 AM EST Sexual Orientation Straight 01/11/2024 8: 14 AM EST documented as of this encounter Plan of Treatment Upcoming Encounters Date Type Department Care Team (Late st Contact Info) Description 05/02/2025 10:00 AM EDT Office Visit [facility] [address] [place] [address] Misti Murry MD [address] [place] [address] documented as of this encounter Procedures Procedure Name Priority Date/Time Associated Diagnosis Comments XR CHEST 1 VIEW Routine 02/11/2025 11:05 AM EDT documented in this encounter Results * XR Chest 1 View (02/11/2025 11:05 AM EDT) Anatomical Region Laterality Modality Chest Radiographic Lamar ging 02/11/2025 11:0 5 AM EDT Narrative 02/11/2025 11:19 AM EDT ? [facility] ?[address] ?[place] [address] ?XRay Report ? Signed ? Patient: Delgado,Charbel ?MR#: [id number] ? : 1970 ?Acct:[id number] ? Age/Sex: 55 / M ?ADM Date: 02/11/25 ? Loc: HO.S3 ?370-1 ? Attending Dr: Rolan Baker MD ? Ordering Physician: Rolan Baker MD ?? Date of Service: 02/11/25 ?? Procedure(s): XR chest 1V ?? Accession Number(s): [id number] ? cc: [facility]; Rolan Baker MD ? EXAMINATION: ??XR CHEST 1 VIEW ? HISTORY: follow up hypoxia ? COMPARISON: Comparison is made with the prior examination dated ?? 02/07/2025. ? FINDINGS: ??A single AP portable view of the chest performed at 11:05 AM ?? is submitted. There is prominence of the pulmonary vasculature, ?? consistent with congestion. More focal opacity is seen in the left ?? lower lobe, compatible with pneumonia. ??There may be tiny bilateral ?? pleural effusions. There is no pneumothorax. ??The heart remains ?? enlarged. ??The bones are intact. ? XR/XR chest 1V ?? IMPRESSION: ? 1. Cardiomegaly and pulmonary vascular congestion. ? 2. More focal airspace opacity in the left lower lobe compatible with ?? pneumonia. ? Electronically signed by: ??Dony Nunn MD ??02/11/2025 11:16 AM EDT ? Dictated By: ?Dony Nunn MD ? Signed By: ?<Electronically signed by Dony Nunn MD in OV> ?02/11/25 1116 ? DD/ 1105 ? TD/TT: 02/11/25 1111 ? Industrial/Organizational Psychologist: ? Procedure Note Moy, Image - 02/11/[address] [address] XRay Report Signed Patient: Isaias Delgado#: [id number] : 1970Acct:[id number] Age/Sex: 55 / MADM Date: 02/11/25 Loc: HO.S3 370-[address]: Rolan Baker MD Ordering Physician: Rolan Baker MD Date of Service: 02/11/25 Procedure(s): XR chest 1V Accession Number(s): [id number] cc: [facility]; Rolan Baker MD EXAMINATION: XR CHEST 1 VIEW HISTORY: follow up hypoxia COMPARISON: Comparison is made with the prior examination dated 02/07/2025. FINDINGS: A single AP portable view of the chest performed at 11:05 AM is submitted. There is prominence of the pulmonary vasculature, consistent with congestion. More focal opacity is seen in the left lower lobe, compatible with pneumonia. There may be tiny bilateral pleural effusions. There is no pneumothorax. The heart remains enlarged. The bones are intact. XR/XR chest 1V IMPRESSION: 1. Cardiomegaly and pulmonary vascular congestion. 2. More focal airspace opacity in the left lower lobe compatible with pneumonia. Electronically signed by: Dony Nunn MD 02/11/2025 11:16 AM EDT RP Dictated By: Dony Nunn MD Signed By: <Electronically signed by Dony Nunn MD in OV> 02/11/25 1116 DD/ 1105 TD/TT: 02/11/25 1111 Industrial/Organizational Psychologist: [facility] External Provider IMG XR PROCEDURES Final Result documented in this encounter Visit Diagnoses Not on filedocumented in this encounter
--- OUTSIDE RECORDS SUMMARY | 2025-02-15 02:48 | XMS_ITS | Clinical Summary ---
Author Organization [employer] Address [address] [facility] [address] [place] [address] Care Team Providers Care Net C Developer Name Role Phone Unavailable Primary Care Provider [...] Patient presented with altered mental status from [facility] where he appeared more lethargic than his [...] Encounters Date Type Department Care Team Description 02/13/2025 Patient Outreach [address] [address] Misti Murry MD Care Coordination (Outreach) 02/11/2025 Orders Only [facility] External Provider, [facility] 02/10/2025 Orders Only GENERIC EXTERNAL DATA DEPARTMENT Provider, Generic External Data 02/08/2025 Orders Only GENERIC EXTERNAL DATA DEPARTMENT Provider, Generic External Data 02/07/2025 Orders Only GENERIC EXTERNAL DATA DEPARTMENT Provider, Generic External Data 02/07/2025 Patient Outreach [address] [address] Misti Murry MD Care Coordination (C3/CM Outreach) 02/06/2025 Orders Only GENERIC EXTERNAL DATA DEPARTMENT Provider, Generic External Data 02/05/2025 Patient Outreach [address] [address] Santosh Daley MD Care Coordination (C3/CM Chart Review) 02/05/2025 Patient Outreach [facility] [address] [place] [address] Missy Milner RN Care Coordination (C3CM chart review) 02/05/2025 Patient Outreach [address] [address] Santosh Daley MD 01/31/2025 Orders Only GENERIC EXTERNAL DATA DEPARTMENT Provider, Generic External Data 01/30/2025 Orders Only GENERIC CTC DEPARTMENT [facility] 01/24/2025 Patient Outreach [facility] [address] [place] [address] Santosh Daley MD Care Coordination (Outreach) 01/24/2025 Population Health Risk Score Community [facility] (C3) Department [address] [phone] Provider, Population Health Generic 01/14/2025 Patient Outreach [facility] [address] [place] [address] Santosh Daley MD Care Coordination (Outreach) 01/06/2025 Patient Outreach [facility] [address] [place] [address] Santosh Daley MD Care Coordination (Outreach) 12/26/2024 Patient Outreach [facility] [address] [place] [address] Santosh Daley MD Care Coordination (Outreach) 11/29/2024 Orders Only GENERIC EXTERNAL DATA DEPARTMENT Provider, Generic External Data 11/28/2024 Orders Only [facility] External Provider, [facility] 11/27/2024 Orders Only GENERIC EXTERNAL DATA DEPARTMENT Provider, Generic External Data from Last 3 Months Immunizations Name Administration Dates Next Due [employer] SARS-CoV-2 Vaccination 04/28/2021 Pfizer Covid-19 Vaccine 12+ [...] 8: 14 AM EST Plan of Treatment Upcoming Encounters Date Type Department Care Team (Late st Contact Info) Description 05/02/2025 10:00 AM EDT Office Visit [facility] [address] [place] [address] Misti Murry MD [address] [place] [address] Health Maintenance Due Date Last Done Comments CT Colonography 1969 Colonoscopy 1969 Colorectal Cancer Screening 1969 Depression Screening 1969 FIT DNA/Cologuard 1969 FIT 1969 FOBT 1969 HIV Screening 1970 Lipid Panel 1969 SDOH Screening 1969 Sigmoidoscopy 1969 Alcohol/Substance Use Screening 1981 Tobacco Screening 1981 Hepatitis C Screening 1987 Hepatitis A Vaccines (1 of 2 - Risk 2-dose series) 01/27/1988 Hepatitis B Vaccines (1 of 3 - 19+ 3-dose series) 01/27/1988 01/04/2024 Pneumococcal Vaccine: 50+ Years (1 of 2 - PCV) 01/27/1988 Zoster Vaccines (1 of 2) 2019 COVID-19 Vaccine (4 - 2023-2 5 season) 2024 11/23/2022, 04/28/2021, 04/28/2021 DTaP/Tdap/Td Vaccines (2 - T d or Tdap) 09/16/2031 09/16/2021, 05/18/2017 RSV Patients and Patients Aged 60 years or older (1 - 1-dose 75+ series) 01/27/2044 Influenza Vaccine Completed 01/05/2025 HIB Vaccines Aged Out No longer eligi [...] 1 VIEW Routine 02/11/2025 11:05 AM EDT ETHANOL Routine 02/10/2025 11:37 PM EDT MAGNESIUM Routine 02/10/2025 11:37 PM EDT COMPREHENSIVE METABOLIC PANEL Routine 02/10/2025 11:37 PM EDT CBC WITH AUTO DIFFERENTIAL Routine 02/10/2025 11:37 PM EDT VENOUS BLOOD GAS Routine 02/08/2025 6:41 PM EDT TYPE AND SCREEN Routine 02/08/2025 6:30 PM EDT LACTIC ACID Routine 02/08/2025 6:30 PM EDT COMPREHENSIVE METABOLIC PANEL Routine 02/08/2025 6:30 PM EDT CBC WITH AUTO DIFFERENTIAL Routine 02/08/2025 6:30 PM EDT CTA CHEST PE PROTOCAL Routine 02/08/2025 4:[address] HEAD WO CONTRAST Routine 02/08/2025 4 :05 AM EDT DRUG MONITOR, PANEL 1, SCREEN, URINE Routine 02/08/2025 2:29 AM EDT VENOUS BLOOD GAS Routine 02/08/2025 1:56 AM EDT ETHANOL Routine 02/08/2025 1:52 AM EDT BASIC METABOLIC PANEL Routine 02/08/2025 1:52 AM EDT HEPATIC FUNCTION PANEL Routine 1:52 AM EDT HIGH SENSITIVITY TROPONIN I Routine 02/08/2025 1:52 AM EDT B TYPE NATRIURETIC PEPTIDE (BNP) Routine 02/08/2025 1:52 AM EDT AMMONIA (P) Routine 02/08/2025 1:52 AM EDT PROTHROMBIN TIME-INR Routine 02/08/2025 1:52 AM EDT CBC WITH AUTO DIFFERENTIAL Routine 02/08/2025 1:52 AM EDT SARS COV2/INFLUENZA A/B AND RSV RNA QL NAAT Routine 02/08/2025 1:52 AM EDT ETHANOL Routine 02/07/2025 3:11 PM EDT COMPREHENSIVE METABOLIC PANEL Routine 02/07/2025 3:11 PM EDT CBC WITH AUTO DIFFERENTIAL Routine 02/07/2025 3:11 PM EDT ETHANOL Routine 02/06/2025 12:39 AM EDT LIPASE Routine 02/06/2025 12:39 AM EDT MAGNESIUM Routine 02/06/2025 12:39 AM EDT BASIC METABOLIC PANEL Routine 02/06/2025 12:39 AM EDT HEPATIC FUNCTION PANEL Routine 12:39 AM EDT PROTHROMBIN TIME-INR Routine 02/06/2025 12:39 AM EDT AMMONIA (P) Routine 02/06/2025 12:39 AM EDT CBC WITH AUTO DIFFERENTIAL Routine 02/06/2025 12:39 AM EDT ETHANOL Routine 01/31/2025 5:01 AM EDT LIPASE Routine 01/31/2025 5:01 AM EDT COMPREHENSIVE METABOLIC PANEL Routine 01/31/2025 5:01 AM EDT CBC WITH AUTO DIFFERENTIAL Routine 01/31/2025 5:00 AM EDT LIPASE Routine 01/30/2025 12:45 AM EDT COMPREHENSIVE METABOLIC PANEL Routine 01/30/2025 12:45 AM EDT CBC WITH AUTO DIFFERENTIAL Routine 01/30/2025 12:[address] HEAD WO CONTRAST Routine 11/30/2024 2 [...] EST XR FOOT 3+ VIEWS RIGHT Routine 5 2:[address] HEAD WO CONTRAST Routine 11/20/2024 4 :[address] CERVICAL SPINE WO CONTRAST Routine 11/20/2024 4:25 PM EST from Last 3 Months Results * XR Chest 1 View (02/11/2025 11:05 AM EDT) Anatomical Region Laterality Modality Chest Radiographic Lamar ging 02/11/2025 11:0 5 AM EDT Narrative 02/11/2025 11:19 AM EDT ? [facility] ?[address] ?[place] [address] ?XRay Report ? Signed ? Patient: Charbel Delgado ?MR#: [id number] ? : 1970 ?Acct:[id number] ? Age/Sex: 55 / M ?ADM Date: 02/11/25 ? Loc: HO.S3 ?370-1 ? Attending Dr: Rolan Baker MD ? Ordering Physician: Rolan Baker MD ?? Date of Service: 02/11/25 ?? Procedure(s): XR chest 1V ?? Accession Number(s): [id number] ? cc: [facility]; Rolan Baker MD ? EXAMINATION: ??XR [...] ??Dony Nunn MD ??02/11/2025 11:16 AM EDT ?? RP ? Dictated By: ?Dony Nunn MD ? Signed By: ?<Electronically signed by Dony Nunn MD in OV> ?02/11/251115 ? DD/ 1105 ? TD/TT: 02/11/25 1111 ? Financial Aid Manager: ? Procedure Note Donfrandyfernandopatrick, Image - 02/11/[address] [address] XRay Report Signed Patient: Isaias Delgado#: [id number] : 1970Acct:[id number] Age/Sex: 55 / MADM Date: 02/11/25 Loc: .S3 370-[address]: Rolan Baker MD Ordering Physician: Rolan Baker MD Date of Service: 02/11/25 Procedure(s): XR chest 1V Accession Number(s): [id number] cc: [facility]; Rolan Baker MD EXAMINATION: XR CHEST [...] Dony Nunn MD 02/11/2025 11:16 AM EDT Dictated By: Dony Nunn MD Signed By: <Electronically signed by Dony Nunn MD in OV> 02/11/25 1116 DD/ 1105 TD/TT: 02/11/25 1111 Financial Aid Manager: [facility] External Provider IMG XR PROCEDURES Final Result * Ethanol (02/10/2025 11:37 PM EDT) Only the most recent of7 resultswithin the time period is included. Pathologist [facility] ETHANOL (MG/DL) IN SER/PLAS 213 mg/dL [facility] Comment:Serum/plasma ethanol results are to be used formedical/treatment purposes only. 02/10/2025 11:3 7 PM EDT 02/10/2025 11:43 PM EDT Generic External Data Provider LAB BLOOD ORDERAB LES Final Result [facility] [address] [place] [address] [phone] * (ABNORMAL) CBC auto differential (02/10/2025 11:37 PM EDT) Only the most recent of9 resultswithin the time period is included. [facility] White Blood Count 3.5(L) 4.8 - 10.8 X10*3/uL [facility] Red Blood Count 2.32(L) 4.60 - 5.80 X10*6/uL [facility] Hemoglobin 7.2(L) 14.0 - 18.0 g/dl [facility] Hematocrit 22.0(L) 42.0 - 52.0 % [facility] Mean Corpuscular Volume 94.8 80.0 - 98.0 fL [facility] Mean Corpuscular Hemoglobin 31.0 27.0 - 33.0 pg [facility] Mean Corpuscular HGB Conc 32.7 31.0 - 36.0 g/dl [facility] Red Cell Distribution Width 14.6 11.0 - 16.0 % [facility] Platelet Count 53(L) 160 - 400 X10*3/uL [facility] Mean Platelet Volume 11.0 9.4 - 12.4 fL [facility] Neutrophils Percent Auto 55.6 45 - 73 % [facility] Imm Gran Pct Auto 0.3 0.0 - 0.4 % [facility] Lymphocytes Percent Auto 29.1 20 - 40 % [facility] Monocytes Percent Auto 9.6 2 - 11 % [facility] Eosinophils Percent Auto 4.8(H) 0 - 4 % [facility] Basophils Percent Auto 0.6 0 - 2 % [facility] NRBC Pct Auto 0.0 0.0 - 0.2 /100WBC [facility] Neutrophils Absolute Auto 2.0 2.0 - 8.3 x10*3/uL [facility] Imm Gran Abs Auto 0.01 0.00 - 0.03 X10*3/uL [facility] Lymphocytes Absolute Auto 1.0(L) 1.2 - 4.9 X10*3/uL [facility] Monocytes Absolute Auto 0.3 0.1 - 1.2 X10*3/uL [facility] Eosinophils Absolute Auto 0.2 0.0 - 0.4 X10*3/uL [facility] Basophils Absolute Auto 0.0 0.0 - 0.2 X10*3/uL [facility] NRBC Abs Auto 0.000 0.0 - 0.012 X10*3/uL [facility] 02/10/2025 11:3 7 PM EDT 02/10/2025 11:43 PM EDT us Generic External Data Provider LAB BLOOD ORDERAB LES Final Result [facility] [address] [place] [phone] * Magnesium (02/10/2025 11:37 PM EDT) Only the most recent of3 resultswithin the time period is included. Magnesium 1.7 1.6 - 2.6 mg/dL [facility] 02/10/2025 11:3 7 PM EDT 02/10/2025 11:43 PM EDT us Generic External Data Provider LAB BLOOD ORDERAB LES Final Result [facility] [address] [place] [phone] * (ABNORMAL) Comprehensive Metabolic Panel (02/10/2025 11:37 PM EDT) Only the most recent of7 resultswithin the time period is included. Sodium 137 135 - 145 mmol/L [facility] Potassium 3.9 3.3 - 5.1 mmol/L [facility] Chloride 112(H) 96 - 108 mmol/L [facility] Carbon Dioxide 16(L) 22 - 29 mmol/L [facility] Anion Gap 13 12 - 20 [facility] Urea Nitrogen (BUN) 10 9 - 16 mg/dL [facility] Creatinine, Serum 0.72 0.5 - 1.4 mg/dL [facility] Creatinine Clr Calc Pharmacy 99.6 [facility] Comment:eGFR (calculated fro m the MDRD study equation) and eCrCl(calculated from the Cockcroft-Gault equation) are based ondifferent parameters and may not yield comparable results.If eCrCl result is absurd, please check patient'sheight/weight. Estimated Glomerular Filt Rate >60 [facility] Comment:Chronic Kidney Disea se: Estimated GFR < 60 mL/min/1.07z1Sdbpgs Kidney Disease: Estimated GFR < 15 mL/min/1.73m2 Glucose 92 60 - 115 mg/dL [facility] Calcium 8.5 8.4 - 10.2 mg/dL [facility] Bilirubin, Total 0.4 0.0 - 1.0 mg/dL [facility] Aspartate Amino Transferase 26 5 - 37 U/L [facility] Alanine Aminotransferase <6 0 - 40 U/L [facility] Total Protein 6.8 6.5 - 8.0 g/dL [facility] Albumin Level 3.2(L) 3.5 - 5.0 g/dL [facility] Alkaline Phosphatase 83 39 - 117 U/L [facility] 02/10/2025 11:3 7 PM EDT 02/10/2025 11:43 PM EDT us Generic External Data Provider LAB BLOOD ORDERAB LES Final Result Performing Organization Address [facility]/ZIP Co de Phone Number [facility] [address] [place] [phone] * (ABNORMAL) VENOUS BLOOD GAS (02/08/2025 6:41 PM EDT) Only the most recent of2 resultswithin the time period is included. VBG pH 7.45(H) 7.32 - 7.43 [facility] Comment:METER #: [id number] additional_comment: Cb nsl VBG PCO2 31 mmHg [facility] Comment:METER #: [id number] additional_comment: Cb nsl VBG PO2 43 mmHg [facility] Comment:METER #: [id number] additional_comment: Cb nsl VBG Base Excess -1.0 mmol/L [facility] Comment:METER #: [id number] additional_comment: Cb nsl VBG HCO3 22 22 - 26 mmol/L [facility] Comment:METER #: [id number] additional_comment: Cb nsl O2 Sat, Demetrio 66.0 % [facility] Comment:METER #: [id number] additional_comment: Cb nsl 02/08/2025 6:41 PM EDT 02/08/2025 6:44 PM EDT us Generic External Data Provider LAB BLOOD ORDERAB LES Final Result Performing Organization Address City/[facility]/ZIP Co de Phone Number [facility] [address] [place] [phone] * (ABNORMAL) Lactic Acid (02/08/2025 6:30 PM EDT) Only the most recent of2 resultswithin the time period is included. Lactic Acid 2.9(HH) 0.5 - 2.0 mmol/L [facility] Comment:Critical value for t est(s): LACTIC Results called to gildardo back by: PRACHI Person calling: JENNIE Date: 02/08/25Time: 1858 02/08/2025 6:30 PM EDT 02/08/2025 6:37 PM EDT us Generic External Data Provider LAB BLOOD ORDERAB LES Final Result [facility] [address] [place] [address] [phone] * CTA Chest PE Protocal (02/08/2025 4:12 AM EDT) Anatomical Region Laterality Modality Body, Chest Computed Tomogra phy 02/08/2025 4:12 AM EDT Narrative 02/08/2025 4:15 AM EDT ? [facility] ?[address] ?[place] [address] ? CT Scan Report ? Signed ? Patient: Charbel Delgado ?MR#: [id number] ? : 1970 ?Acct:[id number] ? Age/Sex: 55 / M ?ADM Date: 02/07/25 ? Loc: HO.ED ? Attending Dr: ? Ordering Physician: Alexandria Sweeney MD ?? Date of Service: 02/08/25 ?? Procedure(s): CT angio chest PE protocol ?? Accession Number(s): [id number] ? cc: [facility]; Alexandria Sweeney MD ? Report Number: ?? [id number]: Total DLP = ??260.00 mGy-cm ? CLINICAL HISTORY: hypoxic ? CT angiography chest with contrast. 3D Postprocessing. ? Comparison: CT/SR - CT CHEST WO IV CON - 02/01/25 02:39 EDT ? Findings: ?? Motion and streak artifact limit evaluation. ?? Cardiomegaly without significant pericardial effusion. Coronary artery ?? calcifications. ?? The thoracic aorta is normal caliber. ?? No central or large proximal pulmonary emboli. Remaining pulmonary ?? arteries are poorly opacified, not well evaluated. ?? The visualized thyroid and mediastinum are unremarkable. ?? Gynecomastia. ? Diffuse bilateral developing patchy/nodular consolidations. ?? No significant pleural effusion or pneumothorax. ? Redemonstrated paraesophageal varices. ?? Osteopenia with diffuse multilevel spondylosis. Chronic sternal body ?? fracture. Redemonstrated stable chronic compression fracture at T8. No ?? retropulsion. Osteopenia. ? IMPRESSION: ?? Motion degraded exam. ?? 1. No central or large proximal pulmonary emboli. Remaining pulmonary ?? arteries are poorly opacified, not well evaluated. ?? 2. Diffuse bilateral developing patchy/nodular consolidations. Pneumonia ?? not excluded. ? This document has been electronically signed by: Randal Mendoza MD on ?? 02/08/2025 04:12:55 ? Dictated By: ?Randal Mendoza MD ? Signed By: ?<Electronically signed by Randal Mendoza MD in OV> ?02/08/25 0413 ? DD/ 0412 ? TD/TT: 02/08/25 0412 ? Financial Aid Manager: ? Procedure Note Moy, Image - 02/08/[address] [place] [address] [address] Scan Report Signed Patient: Isaias Delgado#: [id number] : 1970Acct:[id number] Age/Sex: 55 / MADM Date: 02/07/25 Loc: HO.ED Attending Dr: Ordering Physician: Alexandria Sweeney MD Date of Service: 02/08/25 Procedure(s): CT angio chest PE protocol Accession Number(s): [id number] cc: [facility]; Alexandria Sweeney MD Report Number: [id number]: Total DLP = 260.00 mGy-cm CLINICAL HISTORY: hypoxic CT angiography chest with contrast. 3D Postprocessing. Comparison: CT/SR - CT CHEST WO IV CON - 02/01/25 02:39 EDT Findings: Motion and streak artifact limit evaluation. Cardiomegaly without significant pericardial effusion. Coronary artery calcifications. The thoracic aorta is normal caliber. No central or large proximal pulmonary emboli. Remaining pulmonary arteries are poorly opacified, not well evaluated. The visualized thyroid and mediastinum are unremarkable. Gynecomastia. Diffuse bilateral developing patchy/nodular consolidations. No significant pleural effusion or pneumothorax. Redemonstrated paraesophageal varices. Osteopenia with diffuse multilevel spondylosis. Chronic sternal body fracture. Redemonstrated stable chronic compression fracture at T8. No retropulsion. Osteopenia. IMPRESSION: Motion degraded exam. 1. No central or large proximal pulmonary emboli. Remaining pulmonary arteries are poorly opacified, not well evaluated. 2. Diffuse bilateral developing patchy/nodular consolidations. Pneumonia not excluded. This document has been electronically signed by: Rnadal Mendoza MD on 02/08/2025 04:12:55 Dictated By: Randal Mendoza MD Signed By: <Electronically signed by Randal Mendoza MD in OV> 02/08/25412 DD/ 1 TD/TT: 02/08/25411 Financial Aid Manager: [facility] External Provider IMG CT PROCEDURES Edited Result - Final * CT Head w/o Contrast (02/08/2025 4:05 AM EDT) Only the most recent of3 resultswithin the time period is included. Anatomical Region Laterality Modality Head, Neck Computed Tomogra phy 02/08/2025 4:05 AM EDT Narrative 02/08/2025 4:07 AM EDT ? [facility] ?[address] ?[place] [address] ? [address] Scan Report ? Signed ? Patient: Delgado,Charbel ?MR#: [id number] ? : 1970 ?Acct:[id number] ? Age/Sex: 55 / M ?ADM Date: 03/28/25 ? Loc: HO.ED ? Attending Dr: ? Ordering Physician: Alexandria Sweeney MD ?? Date of Service: 02/08/25 ?? Procedure(s): CT head/brain wo IV con ?? Accession Number(s): [id number] ? cc: [facility]; Alexandria Sweeney MD ? Report Number: ?? [id number]: Total DLP = ??618.00 mGy-cm ? CLINICAL HISTORY: fall, etoh ? CT head without contrast ? Comparison: CT/SR - CT HEAD/BRAIN WO IV CON - 11/30/24 01:16 EST ? Findings: ?? Scattered subcortical and periventricular hypoattenuation, likely in ?? keeping with chronic small vessel ischemic disease. Parenchymal volume ?? loss with compensatory prominence of the ventricles and CSF spaces. No ?? acute territorial infarction, intracranial hemorrhage, midline shift or ?? hydrocephalus. ? There is no sinus or mastoid fluid. ?? The orbits are unremarkable. ?? There is no acute fracture. ? IMPRESSION: ?? 1. No acute intracranial abnormality. ?? 2. Additional findings as described. ? This document has been electronically signed by: Randal Mendoza MD on ?? 02/08/2025 04:05:14 ? Dictated By: ?Randal Mendoza MD ? Signed By: ?<Electronically signed by Randal Mendoza MD in OV> ?02/08/25 0406 ? DD/ 0405 ? TD/TT: 02/08/25 0405 ? Financial Aid Manager: ? Procedure Note Moy, Image - 02/08/[address] [place] [address] [address] Scan Report Signed Patient: Isaias Delgado#: [id number] : 1970Acct:[id number] Age/Sex: 55 / MADM Date: 02/07/25 Loc: HO.ED Attending Dr: Ordering Physician: Alexandria Sweeney MD Date of Service: 02/08/25 Procedure(s): CT head/brain wo IV con Accession Number(s): [id number] cc: [facility]; Alexandria Sweeney MD Report Number: [id number]: Total DLP = 618.00 mGy-cm CLINICAL HISTORY: fall, etoh CT head without contrast Comparison: CT/SR - CT HEAD/BRAIN WO IV CON - 11/30/24 01:16 EST Findings: Scattered subcortical and periventricular hypoattenuation, likely in keeping with chronic small vessel ischemic disease. Parenchymal volume loss with compensatory prominence of the ventricles and CSF spaces. No acute territorial infarction, intracranial hemorrhage, midline shift or hydrocephalus. There is no sinus or mastoid fluid. The orbits are unremarkable. There is no acute fracture. IMPRESSION: 1. No acute intracranial abnormality. 2. Additional findings as described. This document has been electronically signed by: Randal Mendoza MD on 02/08/2025 04:05:14 Dictated By: Randal Mendoza MD Signed By: <Electronically signed by Randal Mendoza MD in OV> 02/08/25405 DD/ 4 TD/TT: 02/08/25404 Financial Aid Manager: [facility] External Provider IMG CT PROCEDURES Edited Result - Final * (ABNORMAL) Drug Monitoring, Panel 1, Screen, Urine (02/08/2025 2:29 AM EDT) Opiate Screen Urine Not Detected Not Detect [facility] Comment:Opiate cut-off is 30 0 ng/mL.Positive results are unconfirmed and should not be used fornon-medical purposes. Barbiturates, Urine POSITIVE(A) Not Detect [facility] Comment:Barbiturate cut-off is 200 ng/mL.Positive results are unconfirmed and should not be used fornon-medical purposes. Phencyclidine Screen Urine Not Detected Not Detect [facility] Comment:Phencyclidine cut-of f is 25 ng/mL.Positive results are unconfirmed and should not be used fornon-medical purposes. Amphetamine Screen Urine Not Detected Not Detect [facility] Comment:Amphetamine cut-off is 1000 ng/mL.Positive results are unconfirmed and should not be used fornon-medical purposes. Benzodiazepines Screen Urine Not Detected Not Detect [facility] Comment:Benzodiazepine cut-o ff is 200 ng/mL.Positive results are unconfirmed and should not be used fornon-medical purposes. Cocaine Screen Urine Not Detected Not Detect [facility] Comment:Cocaine cut-off is 3 00 ng/mL.Positive results are unconfirmed and should not be used fornon-medical purposes. Cannabinoid Screen Urine Not Detected Not Detect [facility] Comment:Cannabinoid cut-off is 50 ng/mL.Positive results are unconfirmed and should not be used fornon-medical purposes. Methadone Screen, Urine Not Detected Not Detect ng/mL [facility] Comment:Methadone cut-off is 300 ng/mL.Positive results are unconfirmed and should not be used fornon-medical purposes. FENTANYL URINE Not Detected Not Detect [facility] Comment:Fentanyl cut-off is 1 ng/mL.Positive results are unconfirmed and should not be used fornon-medical purposes. Oxycodone Urine Screen Not Detected Not Detect ng/mL [facility] Comment:Oxycodone cut-off is 100 ng/mL.Positive results are unconfirmed and should not be used fornon-medical purposes. Buprenorphine Screen Not Detected Not Detect ng/mL [facility] Comment:Buprenorphine cut-of f is 5 ng/mL.Positive results are unconfirmed and should not be used fornon-medical purposes. 02/08/2025 2:29 AM EDT 02/08/2025 2:38 AM EDT Generic External Data Provider LAB URINE ORDERAB LES Final Result Performing Organization Address [facility] Co de Phone Number [facility] [address] [place] [address] [phone] * High Sensitivity Troponin I (02/08/2025 1:52 AM EDT) TROPONIN I HIGH SENSITIVITY <2.7 <3.5 - 35.0 ng/L [facility] Comment:The [place]olly high sens itivity Troponin-I results should beused in conjunction with other diagnostic information suchas ECG, clinical observations and information, and patientsymptoms to aid in the diagnosis of [place]. 02/08/2025 1:52 AM EDT 02/08/2025 1:55 AM EDT Generic External Data Provider LAB BLOOD ORDERAB LES Final Result Performing Organization Address [facility] Co de Phone Number [facility] [address] [place] [address] [phone] * SARS-CoV-2 RNA, Influenza A/B, and RSV RNA, Ql NAAT (02/08/2025 1:52 AM EDT) Only the most recent of2 resultswithin the time period is included. Influenza A PCR NEGATIVE Negative [facility] Influenza B PCR NEGATIVE Negative [facility] Resp Syncy Virus RNA Qual PCR NEGATIVE Negative [facility] SARS COV2 PCR NEGATIVE Negative [facility] Comment:All test results mus t [...] use by authorized laboratories.Testing performed on the [employer] GeneXpert utilizingreal-time RT-PCR.All SARS CoV2 and positive influenza A/B results arereported to [facility]. 02/08/2025 1:52 AM EDT 02/08/2025 1:55 AM EDT Generic External Data Provider LAB MICROBIOLOGY - GENERAL ORDERABLES Final Result [facility] [address] [place] [phone] * (ABNORMAL) Prothrombin Time-INR (02/08/2025 1:52 AM EDT) Only the most recent of2 resultswithin the time period is included. Prothrombin Time 15.3(H) 10.9 - 12.4 SEC [facility] INTERNATIONAL NORM RATIO 1.3(H) 0.9 - 1.1 [facility] Comment:INTERNATIONAL NORMAL IZED RATIO (INR) REFERENCE RANGES Reference RangeFor patients not on anticoagulant therapy: 0.9 - 1.1INR ranges for oral anticoagulanttherapy:For prevention and treatment of venous thrombosis and pulmonary embolism: 2.0 - 3.0For acute myocardial infarction with aspirin therapy: 2.0 - 3.0For acute myocardial infarction without aspirin therapy: 3.0 - 4.0For patients with mechanical prosthetic heart valves: 2.5 - 3.5 02/08/2025 1:52 AM EDT 02/08/2025 1:55 AM EDT Generic External Data Provider LAB BLOOD ORDERAB LES Final Result Performing Organization Address [facility] de Phone Number [facility] [address] [place] [phone] * (ABNORMAL) B Type Natriuretic Peptide (BNP) (02/08/2025 1:52 AM EDT) B Type Natriuretic Peptide 147(H) <100 pg/mL [facility] 02/08/2025 1:52 AM EDT 02/08/2025 1:55 AM EDT Generic External Data Provider LAB BLOOD ORDERAB LES Final Result Performing Organization Address [facility] [address] [place] [phone] * (ABNORMAL) Ammonia, Plasma (02/08/2025 1:52 AM EDT) Only the most recent of3 resultswithin the time period is included. Ammonia (P) 65(H) 13 - 55 umol/L [facility] 02/08/2025 1:52 AM EDT 02/08/2025 2:03 AM EDT Generic External Data Provider LAB BLOOD ORDERAB LES Final Result Performing Organization Address [facility] Phone Number [facility] [address] [place] [phone] * Hepatic Function Panel (02/08/2025 1:52 AM EDT) Only the most recent of2 resultswithin the time period is included. Pathologist [facility] Bilirubin, Total 0.4 0.0 - 1.0 mg/dL [facility] Bilirubin, Direct 0.2 0.0 - 0.5 mg/dL [facility] Aspartate Amino Transferase 33 5 - 37 U/L [facility] Alanine Aminotransferase 9 0 - 40 U/L [facility] Total Protein 7.1 6.5 - 8.0 g/dL [facility] Albumin Level 3.5 3.5 - 5.0 g/dL [facility] Alkaline Phosphatase 86 39 - 117 U/L [facility] 02/08/2025 1:52 AM EDT 02/08/2025 1:55 AM EDT us Generic External Data Provider LAB BLOOD ORDERAB LES Final Result [facility] [address] [place] [phone] * (ABNORMAL) Basic Metabolic Panel (02/08/2025 1:52 AM EDT) Only the most recent of2 resultswithin the time period is included. [facility] Sodium 140 135 - 145 mmol/L [facility] Potassium 4.0 3.3 - 5.1 mmol/L [facility] Chloride 113(H) 96 - 108 mmol/L [facility] Carbon Dioxide 18(L) 22 - 29 mmol/L [facility] Anion Gap 13 12 - 20 [facility] Urea Nitrogen (BUN) 17(H) 9 - 16 mg/dL [facility] Creatinine, Serum 0.83 0.5 - 1.4 mg/dL [facility] Creatinine Clr Calc Pharmacy 76.5 [facility] Comment:eGFR (calculated fro m the MDRD study equation) and eCrCl(calculated from the Cockcroft-Gault equation) are based ondifferent parameters and may not yield comparable results.If eCrCl result is absurd, please check patient'sheight/weight. Estimated Glomerular Filt Rate >60 [facility] Comment:Chronic Kidney Disea se: Estimated GFR < 60 mL/min/1.52i7Ikuzxa Kidney Disease: Estimated GFR < 15 mL/min/1.73m2 Glucose 95 60 - 115 mg/dL [facility] Calcium 8.5 8.4 - 10.2 mg/dL [facility] 02/08/2025 1:52 AM EDT 02/08/2025 1:55 AM EDT us Generic External Data Provider LAB BLOOD ORDERAB LES Final Result Performing Organization Address [facility] Co de Phone Number [facility] [address], [place] [phone] * Lipase (02/06/2025 12:39 AM EDT) Only the most recent of4 resultswithin the time period is included. Lipase 24 8 - 78 U/L [facility] 02/06/2025 12:3 9 AM EDT 02/06/2025 12:45 AM EDT Generic External Data Provider LAB BLOOD ORDERAB LES Final Result Performing Organization Address [facility] de Phone Number [facility] [address] [place] [phone] [phone] * CT Abdomen Pelvis w/ Contrast (11/29/2024 5:14 AM EST) Anatomical Region Laterality Modality Body, Pelvis, Abdomen Computed T omography 11/29/2024 5:14 AM EST Narrative 11/29/2024 5:16 AM EST ? [facility] ?[address] ?[place] [address] ? CT Scan Report ? Signed ? Patient: Delgado,Charbel ?MR#: [id number] ? : 1970 ?Acct:[id number] ? Age/Sex: 54 / M ?ADM Date: 01/16/25 ? Loc: HO.ED ? Attending Dr: ? Ordering Physician: Trudy Brannon ?? Date of Service: 11/29/24 ?? Procedure(s): CT abdomen pelvis w IV con ?? Accession Number(s): [id number] ? cc: Trudy Brannon; [facility] ? Report Number: ?? [id number]: Total DLP = ??512.00 mGy-cm ? CLINICAL [...] DD/ 0514 ? TD/TT: 11/29/24 0514 ? Financial Aid Manager: ? Procedure Note Renato Winter - 11/29/[address] [address] [place] Scan Report Signed Patient: Isaias Delgado#: [id number] : 1970Acct:[id number] Age/Sex: 54 / MADM Date: 11/28/24 Loc: HO.ED Attending Dr: Ordering Physician: Trudy Brannon Date of Service: 11/29/24 Procedure(s): CT abdomen pelvis w IV con Accession Number(s): [id number] cc: Trudy Brannon; [facility] Report Number: [id number]: Total DLP = 512.00 mGy-cm CLINICAL HISTORY: [...] 11/29/24 0515 DD/ 0514 TD/TT: 11/29/24 0514 Financial Aid Manager: [facility] External Provider IMG CT PROCEDURES Edited Result - Final * CT Chest w/ Contrast (11/29/2024 5:14 AM EST) Anatomical Region Laterality Modality Body, Chest Computed Tomogra phy 11/29/2024 5:14 AM EST Narrative 11/29/2024 5:16 AM EST ? [facility] ?[address] ?[place] [address] ? CT Scan Report ? Signed ? Patient: Delgado,Charbel ?MR#: [id number] ? : 1970 ?Acct:[id number] ? Age/Sex: 54 / M ?ADM Date: 11/28/24 ? Loc: HO.ED ? Attending Dr: ? Ordering Physician: Trudy Brannon ?? Date of Service: 11/29/24 ?? Procedure(s): CT chest w IV con ?? Accession Number(s): [id number] ? cc: Trudy Brannon; [facility] ? Report Number: ?? [id number]: Total DLP = ??248.00 mGy-cm ? CLINICAL HISTORY: infection, aspiraion ? CT chest with contrast ? Comparison: None ? Findings: ?? The heart is enlarged with pokv-wi-kokhhgta coronary calcium. No ?? pericardial effusion. No [...] DD/ 0514 ? TD/TT: 11/29/24 0514 ? Financial Aid Manager: ? Procedure Note Renato Winter - 11/29/2024 [facility] [address] [facility] [address] CT Scan Report Signed Patient: Edie DelgadoMago#: [id number] : 1970Acct:[id number] Age/Sex: 54 / MADM Date: 11/28/24 Loc: HO.ED Attending Dr: Ordering Physician: Trudy Brannon Date of Service: 11/29/24 Procedure(s): CT chest w IV con Accession Number(s): [id number] cc: Trudy Brannon; [facility] Report Number: [id number]: Total DLP = 248.00 mGy-cm CLINICAL HISTORY: infection, aspiraion CT chest with contrast Comparison: None Findings: The heart is enlarged with neqw-gf-ijeapbad coronary calcium. No pericardial effusion. No adenopathy. [...] in OV> 11/29/24 0515 DD/ 0514 TD/TT: 11/29/2414 Financial Aid Manager: [facility] External Provider IMG CT PROCEDURES Edited Result - Final * XR Foot 3+ Views Right (11/27/2024 2:55 PM EST) Anatomical Region Laterality Modality Lower Extremities, Foot Right Radiogra phic Imaging 11/27/2024 2:55 PM EST Narrative 11/27/2024 3:52 PM EST ? [facility] ?[address] ?[place] [address] ?XRay Report ? Signed ? Patient: Delgado,Charbel ?MR#: [id number] ? : 1970 ?Acct:[id number] ? Age/Sex: 54 / M ?ADM Date: 11/27/24 ? Loc: HO.ED ? Attending Dr: ? Ordering Physician: Bautista Gomes DO ?? Date of Service: 11/27/24 ?? Procedure(s): XR foot RT min 3V ?? Accession Number(s): [id number] ? cc: [facility]; Bautista Gomes DO ? EXAMINATION: ?? [...] DD/ 1455 ? TD/TT: 11/27/24 1542 ? Financial Aid Manager: ? Procedure Note Moy, Image - 11/27/[address] [address] XRay Report Signed Patient: Isaias Delgado#: [id number] : 1970Acct:[id number] Age/Sex: 54 / MADM Date: 11/27/24 Loc: HO.ED Attending Dr: Ordering Physician: Bautista Gomes DO Date of Service: 11/27/24 Procedure(s): XR foot RT min 3V Accession Number(s): [id number] cc: [facility]; Bautista Gomes DO EXAMINATION: XR FOOT, [...] Eric Steele MD 11/27/2024 03:50 PM EST RP Dictated By: Eric Nobles MD Signed By: <Electronically signed by Eric Kwon MDin OV> 11/27/24 1550 DD/ 1455 TD/TT: 11/27/24 1542 Financial Aid Manager: us [facility] External Provider IMG XR PROCEDURES Final Result * XR Foot 3+ Views Left (11/27/2024 2:55 PM EST) Anatomical Region Laterality Modality Lower Extremities, Foot Left Radiogra phic Imaging 11/27/2024 2:55 PM EST Narrative 11/27/2024 3:58 PM EST ? [facility] ?[address] ?[place] [address] ?XRay Report ? Signed ? Patient: Delgado,Charbel ?MR#: [id number] ? : 1970 ?Acct:[id number] ? Age/Sex: 54 / M ?ADM Date: 01/15/25 ? Loc: HO.ED ? Attending Dr: ? Ordering Physician: Bautista Gomes DO ?? Date of Service: 11/27/24 ?? Procedure(s): XR foot LT min 3V ?? Accession Number(s): [id number] ? cc: [facility]; Bautista Gomes DO ? EXAMINATION: ?? [...] Steele MD ??11/27/2024 03:55 PM ?? EST ? Dictated By: ?Eric Nobles MD ? Signed By: ?<Electronically signed by Eric Kwon MD in OV> ? 11/27/24 1555 ? DD/ 1455 ? TD/TT: 11/27/24 1542 ? Financial Aid Manager: ? Procedure Note Mackfrandyfernandopatrick, Image - 11/27/2024 [place] [address] XRay Report Signed Patient: Isaias Delgado#: [id number] : 1970Acct:[id number] Age/Sex: 54 / MADM Date: 11/27/24 Loc: HO.ED Attending Dr: Ordering Physician: Bautista Gomes DO Date of Service: 11/27/24 Procedure(s): XR foot LT min 3V Accession Number(s): [id number] cc: [facility]; Bautista Gomes DO EXAMINATION: XR FOOT, [...] Eric Steele MD 11/27/2024 03:55 PM EST RP Dictated By: Eric Nobles MD Signed By: <Electronically signed by Eric Kwon MDin OV> 11/27/24 1555 DD/ 1455 TD/TT: 11/27/24 1542 Financial Aid Manager: us [facility] External Provider IMG XR PROCEDURES Final Result * XR Ankle 3+ Views Right (11/27/2024 2:55 PM EST) Anatomical Region Laterality Modality Lower Extremities, Ankle Right Radiogr aphic Imaging 11/27/2024 2:55 PM EST Narrative 11/27/2024 3:55 PM EST ? [facility] ?[address] ?[place] [address] ?XRay Report ? Signed ? Patient: Charbel Delgado ?MR#: [id number] ? : 1970 ?Acct:[id number] ? Age/Sex: 54 / M ?ADM Date: 11/27/24 ? Loc: HO.ED ? Attending Dr: ? Ordering Physician: Bautista Gomes DO ?? Date of Service: 11/27/24 ?? Procedure(s): XR ankle RT min 3V ?? Accession Number(s): [id number] ? cc: [facility]; Bautista Gomes DO ? EXAMINATION: ?? [...] DD/ 1455 ? TD/TT: 11/27/24 1542 ? Financial Aid Manager: ? Procedure Note Donlibradoter, Image - 11/27/[address] [address] XRay Report Signed Patient: Isaias Delgado#: [id number] : 1970Acct:[id number] Age/Sex: 54 / MADM Date: 11/27/24 Loc: .ED Attending Dr: Ordering Physician: Bautista Gomes DO Date of Service: 11/27/24 Procedure(s): XR ankle RT min 3V Accession Number(s): [id number] cc: [facility]; Bautista Gomes DO EXAMINATION: XR ANKLE, [...] 11/27/24 1552 DD/ 1455 TD/TT: 11/27/24 1542 Financial Aid Manager: us [facility] External Provider IMG XR PROCEDURES Final Result * XR Ankle 3+ Views Left (11/27/2024 2:55 PM EST) Anatomical Region Laterality Modality Lower Extremities, Ankle Left Radiogr aphic Imaging 11/27/2024 2:55 PM EST Narrative 11/27/2024 3:56 PM EST ? [facility] ?[address] ?[place] [address] ?XRay Report ? Signed ? Patient: Delgado,Charbel ?MR#: [id number] ? : 1970 ?Acct:[id number] ? Age/Sex: 54 / M ?ADM Date: 11/27/24 ? Loc: HO.ED ? Attending Dr: ? Ordering Physician: Bautista Gomes DO ?? Date of Service: 11/27/24 ?? Procedure(s): XR ankle LT min 3V ?? Accession Number(s): [id number] ? cc: [facility]; Bautista Gomes DO ? EXAMINATION: ?? [...] DD/ 1455 ? TD/TT: 11/27/24 1542 ? Financial Aid Manager: ? Procedure Note Moy, Image - 11/27/2024 [facility] [address] [facility] [address] XRay Report Signed Patient: Rod DelgadoGeraldine#: [id number] : 1970Acct:[id number] Age/Sex: 54 / MADM Date: 11/27/24 Loc: HO.ED Attending Dr: Ordering Physician: Bautista Gomes DO Date of Service: 11/27/24 Procedure(s): XR ankle LT min 3V Accession Number(s): [id number] cc: [facility]; Bautista Gomes DO EXAMINATION: XR ANKLE, [...] 03:53 PM EST RP Dictated By: Eric Noblse MD Signed By: <Electronically signed by Eric Kwon MDin OV> 11/27/24 1553 DD/ 1455 TD/TT: 11/27/24 1542 Financial Aid Manager: [facility] External Provider IMG XR PROCEDURES Final Result * CT Cervical Spine w/o Contrast (11/20/2024 4:25 PM EST) Anatomical Region Laterality Modality Spine, C-spine Computed Tomogra phy 11/20/2024 4:25 PM EST Narrative 11/20/2024 4:27 PM EST ? [facility] ?[address] ?[place] [address] ? CT Scan Report ? Signed ? Patient: Delgado,Charbel ?MR#: [id number] ? : 1970 ?Acct:[id number] ? Age/Sex: 54 / M ?ADM Date: //25 ? Loc: HO.ED ? Attending Dr: ? Ordering Physician: Crystal Olsen MD ?? Date of Service: 11/20/24 ?? Procedure(s): CT cervical spine wo IV con ?? Accession Number(s): [id number] ? cc: Crystal Olsen MD; [facility] ? Report Number: ?? [id number]: Total DLP = ??281.00 mGy-cm ? CLINICAL [...] in OV> ? 11/20/24 1626 ? DD/ 1625 ? TD/TT: 11/20/24 1625 ? Financial Aid Manager: ? Procedure Note Donlibradoter, Image - 11/20/[address] [place] [address] [address] Scan Report Signed Patient: Isaias Delgado#: [id number] : 1970Acct:[id number] Age/Sex: 54 / MADM Date: 11/20/24 Loc: HO.ED Attending Dr: Ordering Physician: Crystal Olsen MD Date of Service: 11/20/24 Procedure(s): CT cervical spine wo IV con Accession Number(s): [id number] cc: Crystal Olsen MD; [facility] Report Number: [id number]: Total DLP = 281.00 mGy-cm CLINICAL HISTORY: [...] 11/20/24 1626 DD/ 1625 TD/TT: 11/20/24 1625 Financial Aid Manager: [facility] External Provider IMG CT PROCEDURES Edited Result - Final from Last [address] [place] [address] [employer]
--- OUTSIDE RECORDS SUMMARY | 2025-02-15 02:48 | XMS_ITS ---
Author Organization [employer] [facility] Address [address] [place] [address] Care Team Providers Care Dairy Laboratory Technician Name Role Phone Unavailable Primary Care Provider Unavailabl e CM Complex Status:Outreach In Progress (Enrolling) Start date:02/05/2025 Enrollment reason:ADT Feed Overview ED- Pt went to [facility] ED on 02/04/25. Case Team Name Relationship Phone Missy Milner RN Registered Nurse(Responsible S taff) Continued Care and Services Coordination
--- OUTSIDE RECORDS SUMMARY | 2025-02-15 02:48 | XMS_ITS | Encounter Summary ---
Author Organization [employer] [facility] Address [address] [place] [address] Care Team Providers Care International Flight Attendant Name Role Phone Unavailable Primary Care Provider Unavailabl e Reason for Visit * Reason Comments Care Coordination Outreach Encounter Details Date Type Department Care Team (Latest Contact Info) Description 02/13/2025 Patient Outreach [facility] [address] [place] [address] [phone] Misti Murry MD [address] [place], [place] [phone] Care Coordination (Outreach) Social History Tobacco Use Types Packs/Day Years Used Date Smoking Tobacco: Never Assessed Sex and Gender Information Value Date Recorded Sex Assigned at Male 11/23/2022 11:29 AM EST Legal Sex Male 11:26 AM EST Gender Identity Male 11/23/2022 11:29 AM EST Sexual Orientation Straight 01/11/2024 8: 14 AM EST documented as of this encounter Progress Notes * Kiki Mims - 02/13/2025 10:36 AM EDT CHW Kiki Mims , placed outbound call to patient in regards to offer services. CHW introducing herself from [facility] CM Department with CHW's name, department and direct contact [phone] requesting call back. Will re-attempt to contact within 5 days. and address not confirmed. documented in this encounter Plan of Treatment Upcoming Encounters Date Type Department Care Team (Late st Contact Info) Description 05/02/2025 10:00 AM EDT Office Visit [facility] [address] [place] [address] [phone] Misti Murry MD [address] [place], [place] [phone] documented as of this encounter Visit Diagnoses Not on filedocumented in this encounter
--- OUTSIDE RECORDS SUMMARY | 2025-02-15 02:48 | XMS_ITS | Encounter Summary ---
Author Organization [employer] [facility] Address [address] [place] [address] Care Team Providers Care Daycare Teacher Name Role Phone Unavailable Primary Care Provider Unavailabl e Encounter Details Date Type Department Care Team (Late st Contact Info) Description 02/10/2025 Orders Only GENERIC EXTERNAL DATA DEPARTMENT [...] Description 05/02/2025 10:00 AM EDT Office Visit [facility] MEDICINE [address] [place] [address] Misti Murry MD [address] [place] [address] documented as of this encounter Procedures Procedure Name Priority Date/Time Associated Diagnosis Comments ETHANOL Routine 02/10/2025 11:37 PM EDT CBC WITH AUTO DIFFERENTIAL Routine 02/10/2025 11:37 PM EDT MAGNESIUM Routine 02/10/2025 11:37 PM EDT COMPREHENSIVE METABOLIC PANEL Routine 02/10/2025 11:37 PM EDT documented in this encounter Results * Ethanol (02/10/2025 11:37 PM EDT) ETHANOL (MG/DL) IN SER/PLAS 213 mg/dL [facility] Comment:Serum/plasma ethanol results are to be used formedical/treatment purposes only. 02/10/2025 11:3 7 PM EDT 02/10/2025 11:43 PM EDT Generic External Data Provider LAB BLOOD ORDERAB LES Final Result Performing Organization Address [facility]/ZIP Co de Phone Number [facility] [address] [place] [phone] * Magnesium (02/10/2025 11:37 PM EDT) Pathologist [facility] Magnesium 1.7 1.6 - 2.6 mg/dL [facility] 02/10/2025 11:3 7 PM EDT 02/10/2025 11:43 PM EDT Generic External Data Provider LAB BLOOD ORDERAB LES Final Result Performing Organization Address [facility] Co de Phone Number [facility] [address] [place] [phone] * (ABNORMAL) Comprehensive Metabolic Panel (02/10/2025 11:37 PM EDT) Pathologist [facility] Sodium 137 135 - 145 mmol/L [facility] Potassium 3.9 3.3 - 5.1 mmol/L [facility] Chloride 112(H) 96 - 108 mmol/L [facility] Carbon Dioxide 16(L) 22 - 29 mmol/L [facility] Anion Gap 13 12 - 20 [facility] Urea Nitrogen (BUN) 10 9 - 16 mg/dL [facility] Creatinine, Serum 0.72 0.5 - 1.4 mg/dL [facility] Creatinine Clr Calc Pharmacy 99.6 [facility] Comment:eGFR (calculated fro m the MDRD study equation) and eCrCl(calculated from the Cockcroft-Gault equation) are based ondifferent parameters and may not yield comparable results.If eCrCl result is absurd, please check patient'sheight/weight. Estimated Glomerular Filt Rate >60 [facility] Comment:Chronic Kidney Disea se: Estimated GFR < 60 mL/min/1.17h5Pbstjm Kidney Disease: Estimated GFR < 15 mL/min/1.73m2 Glucose 92 60 - 115 mg/dL [facility] Calcium 8.5 8.4 - 10.2 mg/dL [facility] Bilirubin, Total 0.4 0.0 - 1.0 mg/dL [facility] Aspartate Amino Transferase 26 5 - 37 U/L [facility] Alanine Aminotransferase <6 0 - 40 U/L [facility] Total Protein 6.8 6.5 - 8.0 g/dL [facility] Albumin Level 3.2(L) 3.5 - 5.0 g/dL [facility] Alkaline Phosphatase 83 39 - 117 U/L [facility] 02/10/2025 11:3 7 PM EDT 02/10/2025 11:43 PM EDT us Generic External Data Provider LAB BLOOD ORDERAB LES Final Result [facility] [address] [place] [phone] * (ABNORMAL) CBC auto differential (02/10/2025 11:37 PM EDT) White Blood Count 3.5(L) 4.8 - 10.8 X10*3/uL [facility] Red Blood Count 2.32(L) 4.60 - 5.80 X10*6/uL [facility] Hemoglobin 7.2(L) 14.0 - 18.0 g/dl [facility] Hematocrit 22.0(L) 42.0 - 52.0 % [facility] Mean Corpuscular Volume 94.8 80.0 - 98.0 fL [facility] Mean Corpuscular Hemoglobin 31.0 27.0 - 33.0 pg [facility] Mean Corpuscular HGB Conc 32.7 31.0 - 36.0 g/dl [facility] Red Cell Distribution Width 14.6 11.0 - 16.0 % [facility] Platelet Count 53(L) 160 - 400 X10*3/uL [facility] Mean Platelet Volume 11.0 9.4 - 12.4 fL [facility] Neutrophils Percent Auto 55.6 45 - 73 % [facility] Imm Gran Pct Auto 0.3 0.0 - 0.4 % [facility] Lymphocytes Percent Auto 29.1 20 - 40 % [facility] Monocytes Percent Auto 9.6 2 - 11 % [facility] Eosinophils Percent Auto 4.8(H) 0 - 4 % [facility] Basophils Percent Auto 0.6 0 - 2 % [facility] NRBC Pct Auto 0.0 0.0 - 0.2 /100WBC [facility] Neutrophils Absolute Auto 2.0 2.0 - 8.3 x10*3/uL [facility] Imm Gran Abs Auto 0.01 0.00 - 0.03 X10*3/uL [facility] Lymphocytes Absolute Auto 1.0(L) 1.2 - 4.9 X10*3/uL [facility] Monocytes Absolute Auto 0.3 0.1 - 1.2 X10*3/uL [facility] Eosinophils Absolute Auto 0.2 0.0 - 0.4 X10*3/uL [facility] Basophils Absolute Auto 0.0 0.0 - 0.2 X10*3/uL [facility] NRBC Abs Auto 0.000 0.0 - 0.012 X10*3/uL [facility] 02/10/2025 11:3 7 PM EDT 02/10/2025 11:43 PM EDT us Generic External Data Provider LAB BLOOD ORDERAB LES Final Result [facility] [address] [place] [phone] documented in this encounter Visit Diagnoses Not on filedocumented in this encounter
--- OUTSIDE RECORDS SUMMARY | 2025-02-15 02:48 | XMS_ITS ---
Author Organization [employer] [facility] Address [address] 7 [place] [address] Care Team Providers Care Personnel Director Name Role Phone Unavailable Primary Care Provider Unavailabl e CHW Complex Status:Outreach In Progress (Enrolling) Start date:02/05/2025 Enrollment reason:ADT Feed Overview ED- Pt went [facility] on 02/04[facility]25. Case Team Name Relationship Phone Kiki Mims (Responsible Staff) Continued Care and Services Coordination
--- OUTSIDE RECORDS SUMMARY | 2025-02-15 02:48 | XMS_ITS | Data Portability ---
Author Organization [facility], Main Office Address [address] [place] [address] [address] [place] [address] Care Team Providers Care Consumer Banker Name Role Phone [facility] OTHER Assessment Encounter Date Assessment Date [...] Address Organization Details Recorded Time Alcohol abuse 04264122 Active 2022 HALEY WYATT [address], [address], [place], [address], [employer] [facility] 3 16:10:20 Alcoholic cirrhosis 047082652 Active 2022 HALEY WYATT [address], [address], [place], [address], [facility] 3 16:10:32 Anemia 939405704 Active 2022 HALEY WYATT [address], [address], [place], [address], [facility] 3 16:10:45 Hepatic encephalop athy 80560978 Active 2022 HALEY WYATT [address], [address], [place], [address], [facility] 3 16:11:37 Acute respirator y failure 71698062 Active 2022 HALEY WYATT [address], [address], [place], [address], [facility] 3 16:12:23 Laboratory finding abnormal Active 2022 hypokalemi a hypomagnes ium pancytopen ua repleted in acute care. mag oxide 400 mg BID HALEY WYATT [address], [address], [place], [address], [facility] 3 16:40:30 Congestive heart failure 57698464 Active 2022 HALEY WYATT [address], [address], [place], [address], [facility] 3 16:25:07 Homeless 36348175 Active 2022 ANDREYHALEY GASPAR [address], [address], [place], [address], [facility] [employer] [facility] 3 16:55:00 Pancytopen ia 851647806 Active 2022 ANDREYHALEY GASPAR [address], [address], [place], [address], [facility] 3 21:48:09 Esophageal varices 02680241 Active 2022 HALEY WYATT [address], [address], [place], [address], [facility] 3 16:19:34 Problem Notes None recorded. [...] 110 mm[Hg] 70 mm[Hg] Lis Oconnell MD [address] [place] [address], [facility] [address], [place], [address], [facility] 4 08:21:06 Date Recorded Heart rate Respiratory rate Body temperature Oxygen saturation Oxygen saturation in Arterial blood by Pulse oximetry Systolic blood pressure Diastolic blood pressure Provider Name and Address Organization Details Last Updated DateTime 4 67 /min 16 /min 97.6 [degF] 95 % 95 % 107 mm[Hg] 66 mm[Hg] BRADY HOGAN NP [address], [address], [place], [address], [facility] 4 10:20:23 Social History Question Answer Notes LastModified by Organizat ion Details LastModified Time Tobacco Smoking Status Former Smoker ANDREY RODRIGUEZHALEY CRUZ [address], [address], [place], [address], [employer] [facility] 09/12/2023 16:57:06 Do You Have An [...] 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 HCP/brother Information not available 09/12/2023 What [...] mcg/0.3 mL dose 3 completed Mojgan jain [facility] 11/10/2023 13:12:58 Tdap 1 completed Mojgan jain [facility] 03/01/2024 11:01:29 Td (adult), 5 Lf tetanus toxoid, preservative free, adsorbed 7 completed Mojgan jain [place] [facility] 03/01/2024 11:06:00 Past Encounters Encounter ID Performer Location Encounter Start Date Encounter Closed Date Diagnosis/Indication Diagnosis SNOMED-CT Code Diagnosis ICD10 Code Diagnosis Note [id number] HALEY WYATT [facility] on [address] [place] [id number] 09/12/2023 08:36:44 09/15/2023 08:04:55 Hepatic encephalopathy 07276759 K76.82 resolved in acute care/see hpistarted on lactuloser ifaximin 550 mg BIDlactulo se 40 g TID. Acute resp iratory failure 35750167 J96.00 with hypoxia d/t to acute on chronic heart failure-di uresed w/IV lasix resolved in acute care Anemia 519906517 D64.9 see hpiCT scan with distal esophageal varices.- EGD suspected gastric varies as source of bleedfollo w up with GI in 4 weeks for repeat EGD Congestive heart failure 00630235 I50.9 with preserved ejection fractionCT scan showed small plueral effusionCX R with bibasilar opacitiesc ontinue furosemide 20 mg BIDcontinu e spironolac tone 12.5 mg BIDlow salt diet.monit or weight Alcohol abuse 53261880 F 10.10 with acute withdrawal in acute care tx with phenobarbi germania taper.decl ined recovery support in acute carethiami ne 100 mg dailyfolic acid 1 mg daily Bleeding g astric varices 95957805 I86.4 source of anemiaomep razole [address] dailysucra lfate 1 gm BIDcontinu e PPI and sucralfate Homeless 88655378 Z59.00 Social service refer for community resources. [id number] Lis Oconnell MD [facility] on [address] [place] [address] 09/13/2023 05:12:10 09/15/2023 08:33:31 Acute on chronic diastolic heart failure 318275167 I50.33 improved:s pironolact one 12.5 mg bidfurosem eliana 20 mg bidwill monitor Alcohol abuse 27664034 F 10.10 thiamine 100 mg dailyfolic acid 1 gm dailyinter disciplina ry support for sobrietywi ll monitor and support as needed Bleeding e sophageal varices 26553255 I85.01 s/p blood transfusio ns, octeotride , banding/he mospray:om eprazole 40 mg dailysucra lfate 1 gm bidwill monitor Alcoholic cirrhosis 4200 48153 K70.31 Xifaxan 550 mg bidspirono lactone 12.5 mg bidfurosem eliana 20 mg bidwill monitor Hepatic encephalopathy 21104174 K76.82 lactulose 40 gm tidwill monitor [id number] HALEY WYATT [facility] on [address] [place] [id number] 09/18/2023 11:37:36 09/20/2023 15:12:00 Congestive heart failure 96174528 I50.9 continue furosemide 20 mg BIDcontinu e spironolac tone 12.5 mg BIDlow salt diet.monit or weight Alcohol abuse 65343484 F 10.10 will consider acamprosta te 666 mg TID.thiami ne 100 mg dailyfolic acid 1 mg daily Bleeding g astric varices 10208001 I86.4 source of anemiaomep razole [address] dailysucra lfate 1 gm BIDcontinu e PPI and sucralfate Hepatic encephalopathy 48392018 K76.82 resolved in acute care/see hpistarted on lactuloser ifaximin 550 mg BIDlactulo se 40 g TID.- reports loose stool x's 1 daily. will continue to monitor for now . [id number] HALEY WYATT [facility] on [address] [place] [phone] 10/06/2023 10:25:53 10/18/2023 12:16:47 Altered mental status 416206277 R41.82 see hpiconcern for hepatic encephalop athy due to hxsend to ER for further evaluation [id number] HALEY WYATT [facility] on [address] [place] [id number] 10/12/2023 13:49:36 10/18/2023 15:10:16 Hepatic encephalopathy 15918563 K76.82 resolved in acute care/see hpiimaging with no acute processCon tinue lactulose, rifaximin, Lasix, spironolac toneFollow -up outpatient GI Congestive heart failure 75362181 I50.9 continue furosemide 20 mg BIDcontinu e spironolac tone 12.5 mg BIDlow salt diet.monit or weight Pancytopenia 656987293 D 61.818 wbc 3.41-Hgb 7.3-HCT 23.2Possib ly due to alcohol abuseWill continue to monitor CBC [id number] HALEY WYATT [facility] on [address] [place] [phone] 10/16/2023 13:03:21 11/22/2023 15:10:28 Hepatic encephalopathy 98900653 K76.82 resolved in acute care/see hpiimaging with no acute processCon tinue lactulose, rifaximin, Lasix, spironolac toneFollow -up outpatient GI Congestive heart failure 45619332 I50.9 continue furosemide 20 mg BIDcontinu e spironolac tone 12.5 mg BIDlow salt diet.monit or weight Pancytopenia 453496900 D 61.818 see aboveimpro kiki hgb 8.8- Plt 68Possibly due to alcohol abuseWill continue to monitor CBC [id number] HALEY WYATT [facility] on [address] [place] [phone] 10/24/2023 11:18:12 11/03/2023 11:47:28 Hepatic encephalopathy 58851636 K76.82 alert and oriented x's 2 today unsure of date.resol kiki in acute care/see hpiimaging with no acute processCon tinue lactulose, rifaximin, Lasix, spironolac toneFollow -up outpatient GI Congestive heart failure 15220859 I50.9 Stablke, no reported sxcontinue furosemide 20 mg BIDcontinu e spironolac tone 12.5 mg BIDlow salt diet.monit or weight Pain of le ft shoulder joint 2555146082 5177387 M25.512 see hpixray 3 viewstylen ol 975 mg scheduledm otrin 600 mg scheduled. PT referral for pain with abduction. [id number] HALEY WYATT [facility] on [address] [place] [phone] 10/27/2023 09:08:50 11/03/2023 12:28:46 Hepatic encephalopathy 68141820 K76.82 appears to be a baseline status, however he appears disoriente d at times.Cont inue lactulose, rifaximin, Lasix, spironolac toneFollow -up outpatient GI Congestive heart failure 79054598 I50.9 Stablecont inue furosemide 20 mg BIDcontinu e spironolac tone 12.5 mg BIDlow salt diet.monit or weight Pain of le ft shoulder joint [id number] 1079846 M25.512 Xray completed, results reviewed with patient: Mild degenerati on of the left shoulder; no acute fracture or dislocatio n. continue with:tylen ol 975 mg scheduledm otrin 600 mg scheduled. PT referral for pain with abduction. [id number] HALEY WYATT [facility] on [address] [place] [phone] 11/08/2023 08:13:22 11/22/2023 16:43:01 Daisy-Zee tear 260113303 K22.6 2 days of melena with coffee-kell und emesis on presentati on.GI consulted and performed upper endoscopy on 10/31, evidence of daisy zee tear, gastric ulcers s/p clip placement. continue PPI omeprazole 40 mg twice daily.Carv edilol started as per recommenda tions for esophageal varicesPat ient was advised to avoid NSAID Esophageal varices 83574 008 I85.00 Started on carvedilol 6.25 mg bidomepraz ole 40 mg bidsucralf ate 1 gm BID Anemia 990478878 D64.9 Hgb 6.4 on presentati on to acute careDue to upper GI bleed,Rece ived 3 units of PRBC in acute careCarved ilol started for varices [id number] HALEY WYATT [facility] on [address] [place] [phone] 11/14/2023 07:57:53 12/01/2023 10:08:54 Daisy-Zee tear 922913735 K22.6 11/14 there has been no reported couging and vomiting. 2 days of melena with coffee-kell und emesis on presentati on.GI consulted and performed upper endoscopy on 10/31, evidence of daisy zee tear, gastric ulcers s/p clip placement. continue PPI omeprazole 40 mg twice daily.Carv edilol started as per recommenda tions for esophageal varicesPat ient was advised to avoid NSAID Esophageal varices 06716 008 I85.00 stableStar forrest on carvedilol 6.25 mg bidomepraz ole 40 mg bidsucralf ate 1 gm BID Anemia 093267891 D64.9 11/14will recheck labspatien t denies excess fatigue, weakness, shortness of breathdoes not appear pale, color normal. Hgb 6.4 on presentati on to acute careDue to upper GI bleed,Rece ived 3 units of PRBC in acute careCarved ilol started for varices [id number] HALEY WYATT [facility] on [address] [place] [phone] 11/17/2023 08:07:13 12/01/2023 11:37:06 Daisy-Zee tear 313837850 K22.6 stable, There has been no new reported sx.2 days of melena with coffee-kell und emesis on presentati on.GI consulted and performed upper endoscopy on 10/31, evidence of daisy zee tear, gastric ulcers s/p clip placement. continue PPI omeprazole 40 mg twice daily.Carv edilol started as per recommenda tions for esophageal varicesPat ient was advised to avoid NSAID Esophageal varices 34366 008 I85.00 stableStar forrest on carvedilol 6.25 mg bidomepraz ole 40 mg bidsucralf ate 1 gm BID Anemia 060838157 D64.9 11/15: hgb 8.0 hct 25.6will recheck labs Hgb 6.4 on presentati on to acute careDue to upper GI bleed,Rece ived 3 units of PRBC in acute careCarved ilol started for varices [id number] Lis Oconnell MD [facility] on [address] [place] [phone] 11/24/2023 08:20:43 11/29/2023 17:59:33 Alcohol abuse 33922069 F10.10 thiamine 100 mg dailyfolic acid 1 gm dailyMVI dailyacamp rosate 666 mg tidinterdi sciplinary support for sobrietywi ll monitor and support as needed Upper gastrointestinal bleeding 43562208 K92.89 with history varices, Daisy Zee tear:sucra lfate 1 gm bidomepraz ole 40 mg [id number] monitoravo id NSAIDs Alcoholic cirrhosis 4200 37944 K70.31 Xifaxan 550 mg bidspirono lactone 12.5 mg bidfurosem eliana 20 mg dailylactu lose 40gm tidwill monitor Esophageal varices 70938 008 I85.00 see meds for history UGI bleed:also carvedilol 6.25 mg bidwill monitor [id number] BRADY HOGAN NP [facility] on [address] [place] [address] 11/28/2023 09:53:56 12/01/2023 12:57:26 Alcohol abuse 83250464 F10.10 thiamine 100 mg dailyfolic acid 1 gm dailyMVI dailyacamp rosate 666 mg tidinterdi sciplinary support for sobrietywi ll monitor and support as needed Upper gastrointestinal bleeding 40473230 K92.89 with history varices, Daisy Zee tear:sucra lfate 1 gm bidomepraz ole 40 mg [id number] monitoravo id NSAIDs Alcoholic cirrhosis 4200 80122 K70.31 Xifaxan 550 mg bidspirono lactone 12.5 mg bidfurosem eliana 20 mg dailylactu lose 40gm tidwill monitor Esophageal varices 45881 008 I85.00 see meds for history UGI bleed:carv edilol 6.25 mg bidwill monitor Health Concerns Section Related Observation LastModified by Organization Detai ls LastModified Time None Recorded Concern Status LastModified by Organization Details LastModified Time None Recorded Advance Directives Directive Y: Payers Encounter Date Sequence Insurance Name Policy Number Policy Yip Covered Member ID Yip Member ID Guarantor Name 11/08/2023 1 [place] [facility] Charbel Delgado [id number] Charbel Delgado 11/14/2023 1 [place] [facility] Charbel Delgado [id number] Charbel Delgado 11/17/2023 1 [place] [id number] Charbel Delgado 11/24/2023 1 [place] [facility] [id number] Charbel Delgado 11/28/2023 1 [place] [facility] [id number] Charbel Delgado Notes Date Note Type Note [...] a few weeks. Molst: HALEY Cummings [address] [facility] [address], [address], [place], [address], [facility] [employer] 11/08/2023 16:31:23 11/14/2023 text/html Patient is 53-ye ar-old male seen today for acute rounding visit. Today he is stable, he was sent to ED on 11/09 for hgb noted 7.0 and had repeat labs in ED hgb 8.1. He returned to [facility] the same evening and has been [...] in a few weeks. HALEY WYATT [address] [facility] [address], [address], [place], [address], [facility] [employer] [facility] 11/14/2023 21:53:05 11/17/2023 text/html Patient is [...] no acute nursing concerns. HALEY WYATT [address] [facility] [address], [address], [place], [address], [facility] [employer] [facility] 11/17/2023 13:21:44 11/24/2023 text/html This 53 year old male [facility] resident is seen today for routine rounding visit and acute rounding visit. Medical history is remarkable for history of alcohol use disorder with alcoholic cirrhosis, HFpEF, hypertension, ADHD, anxiety, depression Patient was sent out of facility to ER at [facility] on 10/30/23 with melena and coffee-ground emesis. [...] full code assumed Lis Oconnell MD [address] [facility] [address], [address], [place], [address], [employer] [facility] 11/24/2023 12:23:26 11/28/2023 text/html seen today for a cute rounding visit, CAOx3 he is complaining about being bored, independent in room, gait steady, mood stable, staff report no concerns BRADY HOGAN NP [address] [facility], [address], [place], [address], [facility] [facility] 11/28/2023 10:23:34
--- NOTE | 2025-02-15 02:51 | ED.GENADULT ---
HPI - General Adult General Chief complaint: General Medical Stated complaint: Knee, back of the shoulder pain Time Seen by Provider: 02/15/25 02:46 Source: patient Mode of arrival: ambulatory Limitations: no limitations History of Present Illness ED Provider: Dr. Alexandria Sweeney HPI narrative: Patient comes to the emergency room complaining of alcohol intoxication. Initially when patient came in, he complained to the EMS crew about shoulder pain, knee pain. However, now that patient is here, he has no complaints. Patient admits that he has been drinking quite a lot of alcohol. Patient denies falls Related Data Home Medications ?Medication ?Instructions ?Recorded ?Confirmed lactulose 10 gram/15 mL oral 30 ml PO TID 02/01/25 02/11/25 solution omeprazole 40 mg capsule,delayed 40 mg PO DAILY@0630 02/01/25 02/11/25 release Previous Rx's ?Medication ?Instructions ?Recorded acetaminophen 325 mg tablet 975 mg (3 x 325 mg) PO Q6H PRN 12/17/24 Pain, Mild 1-3,Fever,Headache #30 tabs magnesium oxide 400 mg (241.3 mg 400 mg PO DAILY #30 tabs 12/17/24 magnesium) tablet sodium chloride 0.65 % nasal spray 1 spray intranasal Q1H PRN Dryness 12/17/24 aerosol (Deep Sea Nasal) #44 mL sucralfate 1 gram tablet (Carafate) 1 g PO BID #60 tabs 12/17/24 folic acid 1 mg tablet 1 mg PO DAILY #90 tabs 02/04/25 thiamine mononitrate (vit B1) 100 100 mg PO DAILY #90 tabs 02/04/25 mg tablet levofloxacin 750 mg tablet 750 mg PO DAILY #12 tabs 02/13/25 spironolactone 25 mg tablet 25 mg PO DAILY #90 tabs 02/13/25 Allergies Allergy/AdvReac Type Severity Reaction Status Date / Time No Known Allergies Allergy Verified 02/15/25 02:23 [No Known Allergies*] Review of Systems Review of Systems: Constitutional : No Weight loss, No Fever, No Chills, No Night Sweats, No Fatigue, No Malaise ENT/Mouth : No Hearing loss, No Ear Pain, No Nasal Congestion, No Sinus Pain, No Hoarseness, No sore throat, No Rhinorrhea, No Swallowing Difficulty Eyes: No Eye Pain, No Swelling, No Redness, No Foreign Body, No Discharge, No Vision Changes Cardiovascular : No Chest Pain, No SOB, No Dyspnea on Exertion, No Orthopnea, No Edema, No Palpitations Respiratory : No Cough, No Sputum, No Wheezing, No Smoke Exposure, No Dyspnea Gastrointestinal : No Nausea, No Vomiting, No Diarrhea, No Constipation, No abdominal Pain, No Hematochezia, No Melena Genitourinary : no irregular bleeding, No Dysuria, No Urinary Frequency, No Hematuria, No Urinary Incontinence, No Urgency, No Flank Pain, No Urinary Flow Changes, No Hesitancy Musculoskeletal : No joint pain, No Myalgias, No Joint Swelling Skin : No Skin Lesions, No rash Neuro : No Weakness, No Numbness, No Paresthesias, No Loss of Consciousness, No Dizziness, No Headache Psych : No Anxiety/Panic, No Depression, No SI/HI/AH/VH, admits that he has been drinking heavily alcohol. Heme/Lymph: No Bruising, No Bleeding,No Lymphadenopathy Endocrine : No Polyuria, No Polydipsia, No Temperature Intolerance [facility] Past Medical History Medical History Alcohol use disorder Pneumonia Alcohol withdrawal syndrome Pancytopenia Alcohol abuse Thrombocytopenia Esophageal varices Acute on chronic anemia Alcoholic liver disease Aspiration pneumonia Thrombocytopenia Malnutrition CHF (congestive heart failure) Anemia Hypomagnesemia Cirrhosis Thrombocytopenia Acute on chronic anemia CHF (congestive heart failure) Anemia Alcohol abuse Surgical History No history of previous surgery Social History Social History Household Members: None Household Members Other:: homeless Housing: Homeless Housing Other:: Homeless [facility] Unable to assess alcohol history related to: Refusing to respond Alcohol intake: current Alcohol intake frequency: 3 or more drinks per day Alcohol type: beer Comment: 1 assist to bathroom Patient Tobacco Use Status: Former Tobacco user Tobacco use type: Cigarette Second Hand Smoke Exposure: No Advance Directives: No Advance Directives Information Provided: Yes Advance Directives Date on File: 07/03/23 service: No Physical Exam ED Vital Signs: Vital Signs - 24 hr 02/15/25 02:19 02/15/25 04:45 02/15/25 05:10 Temperature 97.5 F 97.7 F Pulse Rate 69 72 70 Respiratory Rate 17 17 18 Blood Pressure 107/50 L 96/53 L 95/53 L Pulse Oximetry 98 96 93 Oxygen Delivery Method Nasal Cannula Nasal Cannula Nasal Cannula Oxygen Flow Rate 2 2 02/15/ 06:26 Temperature Pulse Rate 74 Respiratory Rate Blood Pressure 99/55 L Pulse Oximetry 97 Oxygen Delivery Method Nasal Cannula Oxygen Flow Rate 2 BMI result Body Mass Index 24.3 Const Other: Appearance: Alert. Oriented X3. No acute distress. Eyes: Pupils equal, round and reactive to light. ENT: Pharynx normal. Neck: Normal inspection. Neck supple. No lymph nodes noted. No crepitus CVS: Normal heart rate and rhythm. Pulses normal. Normal S1 and S2 Respiratory: No respiratory distress. Breath sounds normal. No Wheezing. No rales Abdomen: Soft and nontender. No rigidity. No distention. Skin: Skin warm and dry. Normal skin color. Normal skin turgor. Extremities: No lower extremity edema. No Lacerations. No Rash Neuro: Oriented X 3. No motor deficit. No sensory deficit. Moving all extremities. No slurred speech. CN 2 through 12 grossly intact Psych: calm, intoxicated but cooperative and redirectable Medical Decision Making Medical Decision Making MDM Narrative: Patient is not SI or HI Plan: Metabolize to freedom and discharged in the morning Physician observation started at 02:55 At this time, 07:08, physician observation discontinued. Patient eating breakfast, patient getting ready to be discharged. Differential Diagnosis Differential Diagnoses: The differential diagnosis associated with the presentation includes (Alcohol abuse, alcohol intoxication, homeless) Critical Care Time Critical Care Time Critical Care Time: Yes Total Critical Care Time: 45 Attestation: I have personally provided critical care time. Time includes review of lab data, radiology results, discussion with consultants, and monitoring for potential decompensation. Intervention performed as documented. Discharge Plan Discharge Clinical Impression: Alcohol abuse, Alcohol intoxication Patient Disposition: Home, Self-Care Instructions: Abuse of Alcohol (DC), Abuse of Alcohol (ED) Additional Instructions: Alcohol use disorder You were seen in the Emergency Department today for treatment of alcohol use disorder.? You may have been given medications to help with your withdrawal symptoms.? Please do not drink alcohol with them. This is very dangerous and can cause respiratory depression or other adverse reactions depending on the medication. If you would like to cut down or stop your alcohol use please consider calling our outpatient Addiction Treatment office:? [facility] (M-F 9a-5p) [address] ? You have also been given a list of treatment providers in the area that can assist as well.? If you experience seizures, vomiting blood, black stools, falls, severe headache, chest pain, fevers, trouble breathing, hallucinations or any other concerns you need to call 911 or seek immediate care. Please stay hydrated. Prescriptions: No Action sucralfate [Carafate] 1 gram tablet 1 g PO BID Qty: 60 0RF acetaminophen 325 mg Tablet 975 mg PO Q6H PRN (Reason: Pain, Mild 1-3,Fever,Headache) Qty: 30 0RF magnesium oxide 400 mg (241.3 mg magnesium) Tablet 400 mg PO DAILY Qty: 30 0RF Deep Sea Nasal 0.65 % Aerosol,[place] 1 spray intranasal Q1H PRN (Reason: Dryness) Qty: 44 0RF levofloxacin 750 mg tablet 750 mg PO DAILY Qty: 12 0RF spironolactone 25 mg tablet 25 mg PO DAILY Qty: 90 0RF lactulose 10 gram/15 mL solution 30 ml PO TID omeprazole 40 mg capsule,delayed release(DR/EC) 40 mg PO DAILY@0630 folic acid 1 mg Tablet 1 mg PO DAILY Qty: 90 0RF thiamine mononitrate (vit B1) 100 mg Tablet 100 mg PO DAILY Qty: 90 0RF Print Language: Danish
--- NOTE | 2025-02-15 08:52 | PC.NURSE ---
Assumed care of patient at 0700. Patient sating 82% on RA. Per previous shift nurse patient was on 02 but he is being discharged. Dr. Sweneey made aware of low 02 sat, stating he was just admitted for hypoxemia and this is his baseline. Attempted to do walking trial with patient - sating 79%. Provider aware
--- NOTE | 2025-02-15 08:59 | ECG_ITS ---
Test Reason : SOB Blood Pressure : */* mmHG Vent. Rate : 85 BPM Atrial Rate : 85 BPM P-R Int : 104 ms QRS Dur : 80 ms QT Int : 402 ms P-R-T Axes : 42 10 17 degrees QTcB Int : 478 ms Sinus rhythm with short [place] Otherwise normal ECG When compared with ECG of 08-Feb-2025 02:12, [place] interval has decreased Referred By: Yesy Herrera Electronically Signed By: EDITA HALE
[2025-02-15 09:19] LABS: MANUAL DIFF FLAG NO
[2025-02-15] MEDS: cefEPime HCl 1 GM in 0.9 % Sodium Chloride 50 ML IV (09:21)
[2025-02-15 09:23] LABS: Appearance Urine Clear; Color Urine Yellow; Glucose Urine UA Negative (Negative); Leukocyte Esterase Urine Negative (Negative); Nitrite Urine Negative (Negative); Urine Blood Negative (Negative); Urine Ketones Negative (Negative); Urine Protein Negative (Neg-Trace)
[2025-02-15 09:23] LABS: Basophils Percent Auto 0.7 % (0-2); Eosinophils Absolute Auto 0.2 X10*3/uL (0.0-0.4); Eosinophils Percent Auto 5.5 % (0-4); Hematocrit 24.7 % (42.0-52.0); Hemoglobin 8.1 g/dl (14.0-18.0); Imm Gran Abs Auto 0.01 X10*3/uL (0.00-0.03); Imm Gran Pct Auto 0.4 % (0.0-0.4); Lymphocytes Absolute Auto 1.2 X10*3/uL (1.2-4.9); Lymphocytes Percent Auto 42.2 % (20-40); Mean Corpuscular HGB Conc 32.8 g/dl (31.0-36.0); Mean Corpuscular Hemoglobin 30.8 pg (27.0-33.0); Mean Corpuscular Volume 93.9 fL (80.0-98.0); Mean Platelet Volume 11.5 fL (9.4-12.4); Monocytes Absolute Auto 0.2 X10*3/uL (0.1-1.2); Monocytes Percent Auto 8.7 % (2-11); Neutrophils Absolute Auto 1.2 x10*3/uL (2.0-8.3); Neutrophils Percent Auto 42.5 % (45-73); Platelet Count 65 X10*3/uL (160-400); Red Blood Count 2.63 X10*6/uL (4.60-5.80); Red Cell Distribution Width 14.6 % (11.0-16.0); White Blood Count 2.8 X10*3/uL (4.8-10.8)
[2025-02-15 09:28] LABS: Bacteria Urine None Seen (None Seen); Hyaline Casts Urine 0-2 /LPF (0-2); RBC Urine 0-2 /HPF (0-2); Squamous Epithelial Cell Urine 0-2 /HPF (0-2); WBC Urine 0-5 /HPF (0-5)
[2025-02-15 09:37] LABS: Alanine Aminotransferase 8 U/L (0-40); Albumin Level 3.4 g/dL (3.5-5.0); Alkaline Phosphatase 80 U/L (39-117); Anion Gap 12 (12-20); Aspartate Amino Transferase 28 U/L (5-37); Bilirubin Direct 0.1 mg/dL (0.0-0.5); Bilirubin Total 0.3 mg/dL (0.0-1.0); Blood Urea Nitrogen 15 mg/dL (9-16); Calcium 8.5 mg/dL (8.4-10.2); Carbon Dioxide 20 mmol/L (22-29); Chloride 116 mmol/L (96-108); Creatinine Clr Calc Pharmacy 89.7; Estimated Glomerular Filt Rate > 60; Glucose Random 91 mg/dL (60-115); Magnesium 1.8 mg/dL (1.6-2.6); Potassium 3.7 mmol/L (3.3-5.1); Sodium 144 mmol/L (135-145); Total Protein 7.1 g/dL (6.5-8.0)
--- NOTE | 2025-02-15 09:37 | PC.NURSE ---
aware of patients hypoxemia and patient being placed back on . Obtained. 20g Iv placed in left ac, labs/ ekg obtained. Medicated per jan.
--- NOTE | 2025-02-15 09:39 | PC.NURSE ---
Blood cultures not initially ordered, and abt was started. Provider at bedside and assessed patient. Provider aware that abt was infusing stating to pause abt and draw blood cultures. Blood cultures to be drawn and abt will be resumed
[2025-02-15 09:41] LABS: Troponin-I High Sensitivity < 2.7 ng/L (<3.5-35.0)
[2025-02-15 09:44] LABS: Lactic Acid 2.5 mmol/L (0.5-2.0)
[2025-02-15 10:04] LABS: Influenza A PCR NEGATIVE (Negative); Influenza B PCR NEGATIVE (Negative); Resp Syncy Virus RNA Qual PCR NEGATIVE (Negative); SARS COV2 PCR INHOUSE NEGATIVE (Negative)
[2025-02-15 11:18] LABS: Reflex Lactate? Lactic Acid Added
--- NOTE | 2025-02-15 11:27 | PHA.MEDREC ---
Pharmacy Consult ? Medication Reconciliation Pharmacy has completed the medication reconciliation. Pt recently discharged 02/13/25. Utilized discharge summary and packet to confirm meds.
--- NOTE | 2025-02-15 12:43 | PM.IMHP ---
History of Present Illness Date of Service: 02/15/25 Chief Complaint: Hypoxia a 55-year-old male with pertinent history of alcohol use disorder with alcoholic cirrhosis, gastroesophageal reflux disease who presented to the emergency department for alcohol intoxication found to have Hypoxia. The patient was admitted for treatment of Acute hypoxic respiratory failure secondary to bilateral pneumonia and acute on chronic diastolic chf responded well to IV Zosyn. Discharged on Levaquin 2 days ago. It is unclear but seems like he did not take his prescribed medications and went back to drinking heavily. CXR showing evidence of pneumonia. Found to be 79% on RA. Admitted for further treatment. Review of Systems Review of Systems: report weakness No chest pain, palpitation has shortness of breath or coughing No abdominal pain, nausea or vomiting No urinary symptoms No any rash or wounds PMFSH Medical History Acute hypoxemic respiratory failure Anemia Alcohol use disorder Pneumonia Alcohol withdrawal syndrome Pancytopenia Alcohol abuse Thrombocytopenia Esophageal varices Acute on chronic anemia Alcoholic liver disease Aspiration pneumonia Thrombocytopenia Malnutrition CHF (congestive heart failure) Anemia Hypomagnesemia Cirrhosis Thrombocytopenia Acute on chronic anemia CHF (congestive heart failure) Anemia Alcohol abuse Surgical History No history of previous surgery Social History Household Members: None Household Members Other:: homeless Housing: Homeless Housing Other:: Homeless senior living Unable to assess alcohol history related to: Refusing to respond Alcohol intake: current Alcohol intake frequency: 3 or more drinks per day Alcohol type: beer Comment: 1 assist to bathroom Patient Tobacco Use Status: Former Tobacco user Tobacco use type: Cigarette Second Hand Smoke Exposure: No Advance Directives: No Advance Directives Information Provided: Yes Advance Directives Date on File: 07/03/23 service: No Meds Allergies Allergy/AdvReac Type Severity Reaction Status Date / Time No Known Allergies Allergy Verified 02/15/25 02:23 [No Known Allergies*] Home Medications ?Medication ?Instructions ?Recorded ?Confirmed ?Last Taken ?Type lactulose 10 gram/15 mL oral 30 ml PO TID 02/01/25 02/15/25 Unknown History solution omeprazole 40 mg capsule,delayed 40 mg PO DAILY@0630 02/01/25 02/15/25 Unknown History release Physical Exam Vital Signs and Narrative: Vital Signs: Last Vital Signs Temp 97.7 F 02/15/25 05:10 Pulse 74 02/15/25 06:26 Resp 18 02/15/25 05:10 BP 99/55 L 02/15/25 06:26 Pulse Ox 79 L 02/15/25 08:50 O2 Del Method Room Air 02/15/25 08:50 O2 Flow Rate 2 02/15/25 08:30 Oxygen Flow Rate 2 02/15/25 02:19 BMI result Body Mass Index 24.3 Const: Other: Constitutional : interactive, not in distress Cardiovascular : no JVP, no lower extremity edema Respiratory : bilateral chest movement, crackles , On O2 supplement Gastrointestinal: soft, lax, Non tender, mild distention Skin : Warm, Dry Neurological : Alert & oriented , No focal deficit Results Labs 02/15/25 09:13 02/15/25 09:13 Labs: Laboratory Results - last 24 hr 02/15/25 02/15/25 09:10 09:13 MCV 93.9 MCH 30.8 MCHC 32.8 RDW 14.6 Plt Count 65 L MPV 11.5 Immature Gran % (Auto) 0.4 Neut % (Auto) 42.5 L Lymph % (Auto) 42.2 H [place] % (Auto) 8.7 Eos % (Auto) 5.5 H Baso % (Auto) 0.7 Lymph # (Auto) 1.2 [place] # (Auto) 0.2 Eos # (Auto) 0.2 Baso # (Auto) 0.0 Abs Immat Gran (auto) 0.01 Absolute Neuts (auto) 1.2 L Absolute Nucleated RBC 0.000 Nucleated RBC % (auto) 0.0 Anion Gap 12 Estim Creat Clear Calc 89.7 Estimated GFR > 60 Random Glucose 91 Lactic Acid 2.5 H* Calcium 8.5 Magnesium 1.8 Total Bilirubin 0.3 Direct Bilirubin 0.1 AST 28 ALT 8 Alkaline Phosphatase 80 Total Protein 7.1 Albumin 3.4 L Urine Color Yellow Urine Appearance Clear Urine pH 6.0 Ur Specific Zap 1.010 Urine Protein Negative Urine Glucose (UA) Negative Urine Ketones Negative Urine Blood Negative Urine Nitrite Negative Ur Leukocyte Esterase Negative Urine RBC 0-2 Urine WBC 0-5 Ur Squamous Epith Cells 0-2 Urine Bacteria None Seen Hyaline Casts 0-2 Influenza Type A (PCR) NEGATIVE Influenza Type B (PCR) NEGATIVE RSV RNA Qual (PCR) NEGATIVE SARS-CoV-2 RNA (RT-PCR) NEGATIVE Assessment and Plan (1) Alcohol intoxication: Status: Acute (2) Pneumonia: Status: Acute (3) Acute hypoxemic respiratory failure: Status: Acute Plan a 55-year-old male with pertinent history of alcohol use disorder with alcoholic cirrhosis, gastroesophageal reflux disease who presented to the emergency department for alcohol intoxication found to have Hypoxia. 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
[2025-02-15] MEDS: Enoxaparin Sodium 40 MG/0.4 ML SYRINGE SUBCUT (12:57)
[2025-02-15] MEDS: levoFLOXacin/D5W 750 MG/150 ML PIGGYBACK 100 MG IV (12:57)
[2025-02-15 13:37] LABS: ~Lactic Acid-LAB USE ONLY 2.6 mmol/L (0.5-2.0)
[2025-02-15 15:15] LABS: Reflex Lactate? 2 Y
[2025-02-15 16:19] LABS: ~Lactic Acid-LAB USE ONLY 1.5 mmol/L (0.5-2.0)
[2025-02-15] MEDS: 0.9 % Sodium Chloride Flush 3 ML SYRINGE IVFLUSH (17:14)
[2025-02-15] MEDS: Sucralfate 1 GM TABLET PO (20:46)
[2025-02-16] VITALS (9 sets, daily range): BP systolic 95–125; BP diastolic 41–60; PULSE 75–82; RESP 16–18; TEMP 36.7–37.1; O2SAT 90–96
[2025-02-16] MEDS: 0.9 % Sodium Chloride Flush 3 ML SYRINGE IVFLUSH ×4 (02:59→20:00)
[2025-02-16 05:39] LABS: MANUAL DIFF FLAG NO
[2025-02-16 05:41] LABS: Basophils Percent Auto 0.7 % (0-2); Eosinophils Absolute Auto 0.1 X10*3/uL (0.0-0.4); Eosinophils Percent Auto 3.8 % (0-4); Hematocrit 23.6 % (42.0-52.0); Hemoglobin 7.6 g/dl (14.0-18.0); Imm Gran Abs Auto 0.01 X10*3/uL (0.00-0.03); Imm Gran Pct Auto 0.3 % (0.0-0.4); Lymphocytes Absolute Auto 0.9 X10*3/uL (1.2-4.9); Lymphocytes Percent Auto 29.8 % (20-40); Mean Corpuscular HGB Conc 32.2 g/dl (31.0-36.0); Mean Corpuscular Hemoglobin 30.3 pg (27.0-33.0); Mean Platelet Volume 11.8 fL (9.4-12.4); Monocytes Absolute Auto 0.3 X10*3/uL (0.1-1.2); Monocytes Percent Auto 11.4 % (2-11); Neutrophils Absolute Auto 1.6 x10*3/uL (2.0-8.3); Red Blood Count 2.51 X10*6/uL (4.60-5.80); Red Cell Distribution Width 14.6 % (11.0-16.0); White Blood Count 2.9 X10*3/uL (4.8-10.8)
[2025-02-16 05:42] LABS: Platelet Count 61 X10*3/uL (160-400)
[2025-02-16 05:54] LABS: Anion Gap 12 (12-20); Blood Urea Nitrogen 14 mg/dL (9-16); Calcium 8.5 mg/dL (8.4-10.2); Carbon Dioxide 19 mmol/L (22-29); Chloride 113 mmol/L (96-108); Creatinine Clr Calc Pharmacy 92.1; Estimated Glomerular Filt Rate > 60; Glucose Random 87 mg/dL (60-115); Potassium 4.1 mmol/L (3.3-5.1); Sodium 140 mmol/L (135-145)
[2025-02-16] MEDS: Omeprazole 40 MG CAPSULE.DR PO (06:40)
[2025-02-16] MEDS: Lactulose 20 GM/30 ML SOLUTION PO (08:59)
[2025-02-16] MEDS: Spironolactone 25 MG TABLET PO (08:59)
[2025-02-16] MEDS: Sucralfate 1 GM TABLET PO ×2 (08:59→20:00)
[2025-02-16] MEDS: Folic Acid 1 MG TABLET PO (08:59)
[2025-02-16] MEDS: Magnesium Oxide 400 MG TABLET PO (08:59)
[2025-02-16] MEDS: Thiamine HCL 100 MG TABLET PO (09:08)
--- NOTE | 2025-02-16 09:14 | PC.NURSE ---
this RN resumed care of patient at 0700, he was resting comfortably in bed, breakfast at bedside for patient. At this time he denies any complaints of SOB/CP/n/v/d. Denies any hallucinations, [place]. Pt has a bed assignment at this time, awaiting for patient to be brought up. Pt remains on 2L O2 O2 have remained stable. Pt reporting he has only been urinating and reports no BM at this time. Pt did take his morning Lactulose and PO pills with no issues. Pt is a stand by assist with ambulating
[2025-02-16] MEDS: Acetaminophen 325 MG TABLET 650 MG PO (11:10)
--- NOTE | 2025-02-16 11:42 | HO.PM.IMPN ---
Subjective Subjective Date of Service: 02/16/25 Review of Systems report weakness No chest pain, palpitation has shortness of breath or coughing No abdominal pain, nausea or vomiting No urinary symptoms No any rash or wounds Physical Exam Vital Signs: Vital Signs: Last Vital Signs Temp 98.8 F 02/16/25 10:23 Pulse 82 02/16/25 10:23 Resp 18 02/16/25 10:23 BP 125/60 02/16/25 10:23 Pulse Ox 94 02/16/25 10:23 O2 Del Method Nasal Cannula 02/16/25 10:23 O2 Flow Rate 2 02/16/25 10:23 Oxygen Flow Rate 2 02/15/25 02:19 BMI result Body Mass Index 24.3 Const: Other: Constitutional : interactive, not in distress Cardiovascular : no JVP, no lower extremity edema Respiratory : bilateral chest movement, crackles , On O2 supplement Gastrointestinal: soft, lax, Non tender, mild distention Skin : Warm, Dry Neurological : Alert & oriented , No focal deficit Objective Data Active Medications Acetaminophen (Acetaminophen 325 Mg Tablet) 650 mg PO Q6H PRN PRN Reason: Pain, Mild 1-3,fever,headache Last Admin: 02/16/25 11:10 Dose: 650 mg Documented By: WENCESLAO Benzonatate (Benzonatate 100 Mg Capsule) 100 mg PO TID PRN PRN Reason: Cough Calcium Carbonate (Calcium Carbonate 750 Mg Tab.Chew) 750 mg PO Q4H PRN PRN Reason: Heartburn Folic Acid (Folic Acid 1 Mg Tablet) 1 mg PO DAILY [facility] Last Admin: 02/16/25 08:59 Dose: 1 mg Documented By: DHARA Levofloxacin (Levaquin) 750 mg in 150 mls @ 100 mls/hr IV Q24H [facility] Last Infusion: 02/15/25 15:05 Dose: Infused Documented By: EM Lactulose (Lactulose 20 Gm/30 Ml Solution) 20 gm PO DAILY [facility] Last Admin: 02/16/25 08:59 Dose: 20 gm Documented By: DHARA Magnesium Hydroxide (Milk Of Magnesia 30 Ml Oral.Susp) 30 ml PO DAILY PRN PRN Reason: Constipation Magnesium Oxide (Magnesium Oxide 400 Mg Tablet) 400 mg PO DAILY [facility] Last Admin: 02/16/25 08:59 Dose: 400 mg Documented By: DHARA Melatonin (Melatonin 3 Mg Tablet) 6 mg PO BEDTIME PRN PRN Reason: Insomnia Omeprazole (Omeprazole 40 Mg Capsule.Dr) 40 mg PO DAILY@0630 [facility] Last Admin: 02/16/25 06:40 Dose: 40 mg Documented By: JORDON Ondansetron HCl (Ondansetron Hcl 4 Mg/2 Ml Vial) 4 mg IVPUSH Q8H PRN PRN Reason: Nausea and Vomiting Sodium Chloride (0.9 % Sodium Chloride Flush 3 Ml Syringe) 3 ml IVFLUSH QSHIFT [facility] Last Admin: 02/16/25 09:00 Dose: 3 ml Documented By: DHARA Spironolactone (Spironolactone 25 Mg Tablet) 25 mg PO DAILY [facility]; Protocol Last Admin: 02/16/25 08:59 Dose: 25 mg Documented By: DHARA Sucralfate (Sucralfate 1 Gm Tablet) 1 gm PO BID [facility] Last Admin: 02/16/25 08:59 Dose: 1 gm Documented By: DHARA Thiamine HCl (Thiamine Hcl 100 Mg Tablet) 100 mg PO DAILY [facility] Last Admin: 02/16/25 09:08 Dose: 100 mg Documented By: DHARA Labs 02/16/25 05:27 02/16/25 05:27 Labs: Laboratory Results - last 24 hr 02/15/25 02/15/25 02/16/25 13:11 15:45 05:27 MCV 94.0 MCH 30.3 MCHC 32.2 RDW 14.6 Plt Count 61 L MPV 11.8 Immature Gran % (Auto) 0.3 Neut % (Auto) 54.0 Lymph % (Auto) 29.8 [place] % (Auto) 11.4 H Eos % (Auto) 3.8 Baso % (Auto) 0.7 Lymph # (Auto) 0.9 L [place] # (Auto) 0.3 Eos # (Auto) 0.1 Baso # (Auto) 0.0 Abs Immat Gran (auto) 0.01 Absolute Neuts (auto) 1.6 L Absolute Nucleated RBC 0.000 Nucleated RBC % (auto) 0.0 Anion Gap 12 Estim Creat Clear Calc 92.1 Estimated GFR > 60 Random Glucose 87 Lactic Acid F/U @ 2Hr 2.6 H* Lactic Acid F/U @ 4Hr 1.5 Calcium 8.5 Assessment and Plan (1) Acute hypoxemic respiratory failure: Status: Acute (2) Pneumonia: Status: Acute (3) Alcohol abuse: Status: Acute Plan a 55-year-old male with pertinent history of alcohol use disorder with alcoholic cirrhosis, gastroesophageal reflux disease who presented to the emergency department for alcohol intoxication found to have Hypoxia. 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
[2025-02-16] MEDS: levoFLOXacin/D5W 750 MG/150 ML PIGGYBACK 100 MG IV (12:22)
--- NOTE | 2025-02-16 12:24 | MHC.CM.PN ---
PATIENT STATES THAT HE IS STILL LIVING ON THE STREETS He returns with DX PNA Supplemental oxygen required. Patient required 6 L weaned to 2L via NC. DP discussed, Encouraged patient to participate with [facility] interventions and recommendations. Provided information on Medical [facility]pite in [place]. transportation is [facility]. CM will follow for discharge.
[2025-02-16] MEDS: Melatonin 3 MG TABLET 6 MG PO (20:00)
[2025-02-17 03:30] VITALS: BP 92/52; PULSE 75; RESP 17; TEMP 36.8; O2SAT 95
[2025-02-17] MEDS: Acetaminophen 325 MG TABLET 650 MG PO ×2 (05:48→19:35)
[2025-02-17] MEDS: Omeprazole 40 MG CAPSULE.DR PO (05:49)
[2025-02-17 07:35] VITALS: BP 112/53; PULSE 75; RESP 18; TEMP 37.4; O2SAT 93
[2025-02-17] MEDS: Lactulose 20 GM/30 ML SOLUTION PO (07:59)
[2025-02-17] MEDS: Thiamine HCL 100 MG TABLET PO (07:59)
[2025-02-17] MEDS: 0.9 % Sodium Chloride Flush 3 ML SYRINGE IVFLUSH ×2 (08:00→22:07)
[2025-02-17] MEDS: Folic Acid 1 MG TABLET PO (08:00)
[2025-02-17] MEDS: Spironolactone 25 MG TABLET PO (08:00)
[2025-02-17] MEDS: Magnesium Oxide 400 MG TABLET PO (08:00)
[2025-02-17] MEDS: Sucralfate 1 GM TABLET PO ×2 (08:00→19:34)
--- NOTE | 2025-02-17 08:46 | MHC.RECOVRN ---
AUDIT-C Brief Intervention Pt had positive screen for unhealthy alcohol use on admission. Attempted to meet with pt to discuss alcohol use and offer resources, pt declined.
--- NOTE | 2025-02-17 09:41 | P.PNIM_ITS ---
Subjective Subjective Date of Service: 02/17/25 Interval History: Seen and evaluated this morning Feels better overall still dropping to mid 80s on RA no other overnight events Review of Systems weakness No chest pain, palpitation shortness of breath ,coughing No abdominal pain, nausea or vomiting No urinary symptoms No any rash or wounds Physical Exam 2 Vital Signs: Vital Signs: Last Vital Signs Temp 99.3 F 02/17/25 07:35 Pulse 75 02/17/25 07:35 Resp 18 02/17/25 07:35 BP 112/53 L 02/17/25 07:35 Pulse Ox 93 02/17/25 07:35 O2 Del Method Nasal Cannula 02/17/25 07:35 O2 Flow Rate 2 02/17/25 07:35 Oxygen Flow Rate 2 02/15/25 02:19 BMI result Body Mass Index 24.3 Const: Other: Constitutional : interactive, not in distress Cardiovascular : no JVP, no lower extremity edema Respiratory : bilateral chest movement, crackles , On O2 supplement Gastrointestinal: soft, lax, Non tender, mild distention Skin : Warm, Dry Neurological : Alert & oriented , No focal deficit Objective Data Active Medications Acetaminophen (Acetaminophen 325 Mg Tablet) 650 mg PO Q6H PRN PRN Reason: Pain, Mild 1-3,fever,headache Last Admin: 02/17/25 05:48 Dose: 650 mg Documented By: LYSLynn Benzonatate (Benzonatate 100 Mg Capsule) 100 mg PO TID PRN PRN Reason: Cough Calcium Carbonate (Calcium Carbonate 750 Mg Tab.Chew) 750 mg PO Q4H PRN PRN Reason: Heartburn Folic Acid (Folic Acid 1 Mg Tablet) 1 mg PO DAILY [facility] Last Admin: 02/17/25 08:00 Dose: 1 mg Documented By: ALYSSIA Levofloxacin (Levaquin) 750 mg in 150 mls @ 100 mls/hr IV Q24H [facility] Last Infusion: 02/16/25 13:54 Dose: Infused Documented By: WENCESLAO Lactulose (Lactulose 20 Gm/30 Ml Solution) 20 gm PO DAILY [facility] Last Admin: 02/17/25 07:59 Dose: 20 gm Documented By: ALYSSIA Magnesium Hydroxide (Milk Of Magnesia 30 Ml Oral.Susp) 30 ml PO DAILY PRN PRN Reason: Constipation Magnesium Oxide (Magnesium Oxide 400 Mg Tablet) 400 mg PO DAILY [facility] Last Admin: 02/17/25 08:00 Dose: 400 mg Documented By: ALYSSIA Melatonin (Melatonin 3 Mg Tablet) 6 mg PO BEDTIME PRN PRN Reason: Insomnia Last Admin: 02/16/25 20:00 Dose: 6 mg Documented By: GERARDO Omeprazole (Omeprazole 40 Mg Capsule.) 40 mg PO DAILY@0630 [facility] Last Admin: 02/17/25 05:49 Dose: 40 mg Documented By: GERARDO Ondansetron HCl (Ondansetron Hcl 4 Mg/2 Ml Vial) 4 mg IVPUSH Q8H PRN PRN Reason: Nausea and Vomiting Sodium Chloride (0.9 % Sodium Chloride Flush 3 Ml Syringe) 3 ml IVFLUSH QSHIFT [facility] Last Admin: 02/17/25 08:00 Dose: 3 ml Documented By: ALYSSIA Spironolactone (Spironolactone 25 Mg Tablet) 25 mg PO DAILY [facility]; Protocol Last Admin: 02/17/25 08:00 Dose: 25 mg Documented By: ALYSSIA Sucralfate (Sucralfate 1 Gm Tablet) 1 gm PO BID [facility] Last Admin: 02/17/25 08:00 Dose: 1 gm Documented By: ALYSSIA Thiamine HCl (Thiamine Hcl 100 Mg Tablet) 100 mg PO DAILY [facility] Last Admin: 02/17/25 07:59 Dose: 100 mg Documented By: ALYSSIA Labs 02/16/25 05:27 02/16/25 05:27 Microbiology Microbiology Results: Microbiology 02/15/25 09:53 Blood Culture - Preliminary Blood - Venous No growth after 24 hours. 02/15/25 09:49 Blood Culture - Preliminary Blood - Venous No growth after 24 hours. Assessment and Plan (1) Acute hypoxemic respiratory failure: Status: Acute (2) Pneumonia: Status: Acute (3) Alcohol abuse: Status: Acute Plan a 55-year-old male with pertinent history of alcohol use disorder with alcoholic cirrhosis, gastroesophageal reflux disease who presented to the emergency department for alcohol intoxication found to have Hypoxia. 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
[2025-02-17 12:00] VITALS: BP 91/48; PULSE 75; RESP 18; TEMP 37.3; O2SAT 93
[2025-02-17] MEDS: levoFLOXacin/D5W 750 MG/150 ML PIGGYBACK 100 MG IV (12:46)
[2025-02-17 15:16] VITALS: BP 98/55; PULSE 77; RESP 18; TEMP 37.5; O2SAT 95
[2025-02-17 19:27] VITALS: BP 90/53; PULSE 81; RESP 18; TEMP 37.2; O2SAT 92
[2025-02-17] MEDS: Melatonin 3 MG TABLET 6 MG PO (19:35)
[2025-02-17 23:48] VITALS: BP 111/59; PULSE 75; RESP 18; TEMP 36.7; O2SAT 94
[2025-02-18 03:11] VITALS: BP 97/50; PULSE 72; RESP 14; TEMP 36; O2SAT 93
[2025-02-18] MEDS: Omeprazole 40 MG CAPSULE.DR PO (06:01)
[2025-02-18 07:28] VITALS: BP 94/48; PULSE 66; RESP 17; TEMP 36.8; O2SAT 92
[2025-02-18] MEDS: Folic Acid 1 MG TABLET PO (07:51)
[2025-02-18] MEDS: Sucralfate 1 GM TABLET PO (07:51)
[2025-02-18] MEDS: Lactulose 20 GM/30 ML SOLUTION PO (07:52)
[2025-02-18] MEDS: Magnesium Oxide 400 MG TABLET PO (07:52)
[2025-02-18] MEDS: Thiamine HCL 100 MG TABLET PO (07:52)
[2025-02-18] MEDS: Spironolactone 25 MG TABLET PO (07:52)
[2025-02-18] MEDS: 0.9 % Sodium Chloride Flush 3 ML SYRINGE IVFLUSH (07:53)
--- NOTE | 2025-02-18 08:17 | HE.PHANOTE ---
IV TO PO CONVERSION PATIENT MEETS PROTOCOL FOR LEVOFLOX 750MG TO BE SWITCH FROM IV TO PO. NEXT PO DOSE STARTS AT 1300 Q 24H
--- NOTE | 2025-02-18 11:19 | P.DS_ITS ---
DS: Providers Provider Date of Service: 02/18/25 Date of admission: 02/15/25 12:40 Date of discharge: 02/18/25 Primary care physician: None Physician Consults: 02/16/25 10:53 Addiction Medicine Provider Routine Consulting Provider: Arpit Sharp Reason for consultation: pt drinks alcohol daily 02/17/25 12:38 Inpt - Recovery Team Routine Comment: Reason for consultation: LUCAS eval --BI for +AUDITC DS: Diagnosis Discharge Diagnosis (1) Acute hypoxemic respiratory failure: Status: Acute (2) Pneumonia: Status: Acute (3) Alcohol abuse: Status: Acute DS: Summary Hospital Course Hospital Course: Admission note HPI a 55-year-old male with pertinent history of alcohol use disorder with alcoholic cirrhosis, gastroesophageal reflux disease who presented to the emergency department for alcohol intoxication found to have Hypoxia. The patient was admitted for treatment of Acute hypoxic respiratory failure secondary to bilateral pneumonia and acute on chronic diastolic chf responded well to IV Zosyn. Discharged on Levaquin 2 days ago. It is unclear but seems like he did not take his prescribed medications and went back to drinking heavily. CXR showing evidence of pneumonia. Found to be 79% on RA. Admitted for further treatment. Hospital course The patient was admitted for treatment for acute hypoxic respiratory failure secondary to bilateral pneumonia. not septic. Treated with Levaquin. follow up cultures. wean O2 as tolerated to room air. The patient has history of diastolic CHF, not in exacerbation. Continue with Spironolactone. Given a history of Alcohol dependence with alcohol cirrhosis complicated by pancytopenia, coagulopathy. 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 to evaluate for 35 section Discharge plan Continue Levaquin for 1 more week Avoid drinking Time Attestation Discharge Coordination Time (in mins): 37 Quality: Safe Use of Opioids Does Pt have an Active Cancer Diagnosis on the Problem List?: No Quality: Stroke Does the patient have a stroke diagnosis?: No Physical Exam Vital Signs: Vital Signs: Last Vital Signs Temp 98.2 F 02/18/25 07:28 Pulse 66 02/18/25 07:28 Resp 17 02/18/25 07:28 BP 94/48 L 02/18/25 07:28 Pulse Ox 92 02/18/25 07:28 O2 Del Method Room Air 02/18/25 07:28 O2 Flow Rate 2 02/18/25 03:11 Oxygen Flow Rate 2 02/15/25 02:19 BMI result Body Mass Index 24.3 DS: Data Data Completed and Pending Completed studies during hospitalization [Text1]: Procedures Control Bleeding in Gastrointestinal Tract, Via Natural or Artificial Opening Endoscopic (08/29/23) Control Bleeding in Nasal Mucosa and Soft Tissue, Via Natural or Artificial Opening (11/29/24) Detoxification Services for Substance Abuse Treatment (02/08/25) Drainage of Peritoneal Cavity, Percutaneous Approach (10/21/24) Excision of Ascending Colon, Via Natural or Artificial Opening Endoscopic, Diagnostic (08/03/23) Excision of Descending Colon, Via Natural or Artificial Opening Endoscopic, Diagnostic (08/03/23) Insertion of Infusion Device into Upper Vein, Percutaneous Approach (08/29/23) Introduction of Mineral-based Topical Hemostatic Agent into Lower GI, Via Natural or Artificial Opening Endoscopic, [employer] (08/03/23) Introduction of Mineral-based Topical Hemostatic Agent into Upper GI, Via Natural or Artificial Opening Endoscopic, [employer] (08/29/23) Occlusion of Esophageal Vein with Extraluminal Device, Via Natural or Artificial Opening Endoscopic (11/29/24) Occlusion of Esophageal Vein, Via Natural or Artificial Opening Endoscopic (01/22/24) Transfusion of Nonautologous Plasma Cryoprecipitate into Peripheral Vein, Percutaneous Approach (08/03/23) Transfusion of Nonautologous Platelets into Peripheral Vein, Percutaneous Approach (11/29/24) Transfusion of Nonautologous Red Blood Cells into Peripheral Vein, Percutaneous Approach (11/29/24) Labs on day of discharge: Preliminary micro results at discharge 02/15/25 09:53 Blood Culture - Preliminary Blood - Venous No growth after 48 hours. 02/15/25 09:49 Blood Culture - Preliminary Blood - Venous No growth after 48 hours. Discharge Plan Discharge Anticipated Discharge Date/Time: 02/18/25 11:15 Patient Disposition: Home, Self-Care Discharge Diagnosis: Pneumonia Alcohol abuse Referrals: Physician,None [Primary Care Provider] - 1 Week Discharge Medications: New levofloxacin 750 mg Tablet 750 mg PO Q24H Qty: 7 0RF Continued sucralfate [Carafate] 1 gram tablet 1 g PO BID Qty: 60 0RF acetaminophen 325 mg Tablet 975 mg PO Q6H PRN (Reason: Pain, Mild 1-3,Fever,Headache) Qty: 30 0RF magnesium oxide 400 mg (241.3 mg magnesium) Tablet 400 mg PO DAILY Qty: 30 0RF Deep Sea Nasal 0.65 % Aerosol,Arley 1 spray intranasal Q1H PRN (Reason: Dryness) Qty: 44 0RF spironolactone 25 mg tablet 25 mg PO DAILY Qty: 90 0RF lactulose 10 gram/15 mL solution 30 ml PO TID omeprazole 40 mg capsule,delayed release(DR/EC) 40 mg PO DAILY@0630 folic acid 1 mg Tablet 1 mg PO DAILY Qty: 90 0RF thiamine mononitrate (vit B1) 100 mg Tablet 100 mg PO DAILY Qty: 90 0RF Discontinued levofloxacin 750 mg tablet 750 mg PO DAILY Qty: 12 0RF Rx Instructions: END DATE: 02/25/25 Discharge Orders: Discharge Order (Routine); Ordered 02/18/25 Ordered By: Emily Lawrence Diet: Advance to usual diet Activity on Discharge: As tolerated Stand Alone Forms: Patient Portal Discharge page Print Language: Azeri Activity Restrictions/Additional Instructions: Alcohol use disorder You were seen in the Emergency Department today for treatment of alcohol use disorder.? You may have been given medications to help with your withdrawal symptoms.? Please do not drink alcohol with them. This is very dangerous and can cause respiratory depression or other adverse reactions depending on the medication. If you would like to cut down or stop your alcohol use please consider calling our outpatient Addiction Treatment office:? [facility] (M-F 9a-5p) [address] [place] [address] ? You have also been given a list of treatment providers in the area that can assist as well.? If you experience seizures, vomiting blood, black stools, falls, severe headache, chest pain, fevers, trouble breathing, hallucinations or any other concerns you need to call 911 or seek immediate care. Please stay hydrated. Care Plan Goals: Continue Levaquin for 1 more week Avoid drinking Health Concerns: Pneumonia Plan of Treatment: Antibiotics Assessment: as above Patient Instructions: Levofloxacin (By mouth), Abuse of Alcohol (DC) Discharge Date/Time: 02/18/25 12:03
[2025-02-18 11:24] VITALS: BP 103/51; PULSE 76; RESP 17; TEMP 37.5; O2SAT 92
--- NOTE | 2025-02-18 11:42 | MHC.CM.PN ---
per request called [facility] to ask the results of the last sect 35 [place] clerk would not release that imformation as it is confidential pt is dcd self care when asked about a snf he reports he will; be returning to the same snf he retruins to [address] where they serve lunch everyday stating curfew is at 8 ..his scripts can not be refilled at our pharmacy per nurse as it is to soon pt says he has 2 bags of scripts at a store on [address] pt reports he will be walking to snf etc
[2025-02-18] MEDS: levoFLOXacin 750 MG TABLET PO (11:52)
--- NOTE | 2025-02-19 13:54 | P.CDIM_ITS ---
PROVIDER RESPONSE TEXT: To clarify, the appropriate diagnosis supported by the clinical indicators: Acute lactic acidosis: possible QUERY TEXT: PHYSICIAN'S DOCUMENTATION REQUEST Date of Query: 02/18/2025 10:06 AM EDT Patient Name: Charbel Delgado Admit Date: 02/15/2025 Dear Emily Lawrence MD, A review of the medical record indicates additional documentation may be needed. Please review below and update the documentation accordingly. Clinical Indicators: LABS: lactic acid - 2.5 H* 2.6 H* Ed - lactate slightly elevated 2.5 likely secondary to patient's liver disease. Less likely from seps is. Will get L of fluids to be monitored very carefully. Will repeat lactate after L of fluid. Based on the above, could you clarify if there is a diagnosis that correlates with the above findings : Acute lactic acidosis possible, probable, suspected, resolved etc. Labs indicate a diagnosis of (please specify) Other (explain) Clinically unable to determine (explain) Thank you, Rina Gutierrez, CCS, CDIS Use of terms such as suspected, likely, concern for, or probable (associated with a specific diagnosi s that is being evaluated, monitored, or treated as if it exists) are acceptable and can be coded in the inpatient se tting, when documented at the time of discharge. Please use your independent medical judgment in providing your response. THIS QUERY IS PART OF THE PERMANENT MEDICAL RECORD
== END 2025-02-18 12:03 | disposition home or self-care (01) | DRG 139 ==
LOC: HO.ED 07:09 → HO.EDOVER 13:00 → HO.S3 02-16 08:44
PROVIDERS: Emergency Medicine Emergency Medical Services; Admitting Provider Student in an Organized Health Care Education/Training Program; Emergency Provider Emergency Medicine; Visit Provider Student in an Organized Health Care Education/Training Program
DX: J18.9 Pneumonia, unspecified organism (principal); J96.01 Acute respiratory failure with hypoxia; D61.818 Other pancytopenia; D68.4 Acquired coagulation factor deficiency; F10.229 Alcohol dependence with intoxication, unspecified; K21.9 Gastro-esophageal reflux disease without esophagitis; E87.21 Acute metabolic acidosis; I50.32 Chronic diastolic (congestive) heart failure; K70.30 Alcoholic cirrhosis of liver without ascites; Z20.822 Contact with and (suspected) exposure to COVID-19; Z87.891 Personal history of nicotine dependence; Z79.899 Other long term (current) drug therapy
CPT/HCPCS: 0241U; 36415; 71045; 80048; 80076; 81001; 83605; 83735; 84484; 85025; 87040; 93005; 97161; 99285; J0692; J1650; J1956; S9485

== ENCOUNTER → 2025-02-15 08:59 | Outpatient (BNV) | payer MEDICAID, SELFPAY | PROVIDERS: Admitting Provider Student in an Organized Health Care Education/Training Program; Emergency Provider Emergency Medicine; Visit Provider Internal Medicine | DX: R06.02 Shortness of breath (principal) | CPT/HCPCS: 93010 ==

== ENCOUNTER → 2025-02-15 09:31 | Outpatient (BNV) | payer MEDICAID, SELFPAY | PROVIDERS: Emergency Provider Emergency Medicine; Visit Provider Radiology Diagnostic Radiology | DX: R09.02 Hypoxemia (principal) | CPT/HCPCS: 71045 ==

== ENCOUNTER → 2025-02-15 12:40 | Outpatient (BNV) | payer MEDICAID, SELFPAY | PROVIDERS: Admitting Provider Student in an Organized Health Care Education/Training Program; Emergency Provider Emergency Medicine; Visit Provider Student in an Organized Health Care Education/Training Program | DX: J96.01 Acute respiratory failure with hypoxia (principal); J18.9 Pneumonia, unspecified organism; F10.10 Alcohol abuse, uncomplicated | CPT/HCPCS: 99223; 99232; 99239 ==

== ENCOUNTER 2025-02-18 20:21 | Emergency (ER) | payer MEDICAID, SELFPAY ==
--- NOTE | ~2025-02-18 | XR_ITS ---
CLINICAL HISTORY: hypoxia CHEST X-RAY FRONTAL VIEW COMPARISON: 02/15/2025. FINDINGS: A single frontal view of the chest was performed. Patient is mildly rotated to the right. Cardiomegaly is suspected. No definite acute infiltrate or consolidation. Increased density in the lateral aspect of the left lower lung is thought to be secondary to the patient's breast tissues/body habitus. No pleural effusion or pneumothorax. IMPRESSION: 1. No acute infiltrate or pleural effusion. 2. Cardiomegaly is suspected. This document has been electronically signed by: Lex Yarbrough M.D. on 02/18/2025 22:16:57
[2025-02-18 20:30] VITALS: BP 142/92; PULSE 83; BMI 19.4
--- OUTSIDE RECORDS SUMMARY | 2025-02-18 20:42 | XMS_ITS ---
Author Organization [employer] [facility] Address [address] [place] [id number] Care Team Providers Care Coach Builder Name Role Phone Unavailable Primary Care Provider Unavailabl e CM Complex Status:Outreach In Progress (Enrolling) Start date:02/05/2025 Enrollment reason:ADT Feed Overview ED- Pt went to [facility] ED on 02/04/25. Case Team Name Relationship Phone Missy Milner RN Registered Nurse(Responsible S taff) Continued Care and Services Coordination
--- OUTSIDE RECORDS SUMMARY | 2025-02-18 20:42 | XMS_ITS ---
Author Organization [employer] [facility] Address [address] [place] [address] Care Team Providers Care Weld Inspector Name Role Phone Unavailable Primary Care Provider Unavailabl e CHW Complex Status:Outreach In Progress (Enrolling) Start date:02/05/2025 Enrollment reason:ADT Feed Overview ED- Pt went to [facility] ED on 02/04/25. Case Team Name Relationship Phone Kiki Mims (Responsible Staff) Continued Care and Services Coordination
--- OUTSIDE RECORDS SUMMARY | 2025-02-18 20:42 | XMS_ITS | Data Portability ---
Author Organization [facility], Main Office Address [address] [place] [address] [address] [place] [address] Care Team Providers Care Manager Epic Name Role Phone [facility] ([facility] OTHER Assessment Encounter Date Assessment Date [...] Address Organization Details Recorded Time Alcohol abuse 27468778 Active 2022 HALEY WYATT [address] [facility], [address], [place], [address], [facility] 3 16:10:20 Alcoholic cirrhosis 164217029 Active 2022 HALEY WYATT [address] [facility], [address], [place], [address], [facility] 3 16:10:32 Anemia 810584414 Active 2022 HALEY WYATT [address] [facility], [address], [place], [address], [facility] 3 16:10:45 Hepatic encephalop athy 37832598 Active 2022 HALEY WYATT [address] [facility], [address], [place], [address], [facility] 3 16:11:37 Acute respirator y failure 30520310 Active 2022 HALEY WYATT [address] [facility], [address], [place], [address], [facility] 3 16:12:23 Laboratory finding abnormal Active 2022 hypokalemi a hypomagnes ium pancytopen ua repleted in acute care. mag oxide 400 mg BID HALEY WYATT [address] [facility], [address], [place], [address], [facility] 3 16:40:30 Congestive heart failure 96162400 Active 2022 HALEY WYATT [address] [facility], [address], [place], [address], [facility] 3 16:25:07 Homeless 08675732 Active 2022 ANDREYHALEY GASPAR [address] [facility], [address], [place], [address], [facility] 3 16:55:00 Pancytopen ia 595776268 Active 2022 ANDREYHALEY GASPAR [address] [facility], [address], [place], [address], [facility] 3 21:48:09 Esophageal varices 96046436 Active 2022 HALEY WYATT [address] [facility], [address], [place], [address], [facility] 3 16:19:34 Problem Notes None recorded. [...] 110 mm[Hg] 70 mm[Hg] Lis Oconnell MD [address] [place] [address], [facility] [address], [place], [address], [facility] 4 08:21:06 Date Recorded Heart rate Respiratory rate Body temperature Oxygen saturation Oxygen saturation in Arterial blood by Pulse oximetry Systolic blood pressure Diastolic blood pressure Provider Name and Address Organization Details Last Updated DateTime 4 67 /min 16 /min 97.6 [degF] 95 % 95 % 107 mm[Hg] 66 mm[Hg] BRADY HOGAN NP [address] [facility], [address], [place], [address], [facility] 4 10:20:23 Social History Question Answer Notes LastModified by Organizat ion Details LastModified Time Tobacco Smoking Status Former Smoker ANDREY RODRIGUEZHALEY CRUZ [address] [facility], [address], [place], [address], [facility] 09/12/2023 16:57:06 Do You Have An [...] Do You Have A Medical Power Of 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 No HCP/brother Information not available 09/12/2023 What [...] mcg/0.3 mL dose 3 completed Mojgan jain [facility] 11/10/2023 13:12:58 Tdap 1 completed Mojgan jain [facility] 03/01/2024 11:01:29 Td (adult), 5 Lf tetanus toxoid, preservative free, adsorbed 7 completed Mojgan jain [place] [facility] 03/01/2024 11:06:00 Past Encounters Encounter ID Performer Location Encounter Start Date Encounter Closed Date Diagnosis/Indication Diagnosis SNOMED-CT Code Diagnosis ICD10 Code Diagnosis Note [id number] HALEY WYATT [facility] on [address] [place] [address] 09/12/2023 08:36:44 09/15/2023 08:04:55 Hepatic encephalopathy 20718702 K76.82 resolved in acute care/see hpistarted on lactuloser ifaximin 550 mg BIDlactulo se 40 g TID. Acute resp iratory failure 33956729 J96.00 with hypoxia d/t to acute on chronic heart failure-di uresed w/IV lasix resolved in acute care Anemia 152197636 D64.9 see hpiCT scan with distal esophageal varices.- EGD suspected gastric varies as source of bleedfollo w up with GI in 4 weeks for repeat EGD Congestive heart failure 30174629 I50.9 with preserved ejection fractionCT scan showed small plueral effusionCX R with bibasilar opacitiesc ontinue furosemide 20 mg BIDcontinu e spironolac tone 12.5 mg BIDlow salt diet.monit or weight Alcohol abuse 88020423 F 10.10 with acute withdrawal in acute care tx with phenobarbi germania taper.decl ined recovery support in acute carethiami ne 100 mg dailyfolic acid 1 mg daily Bleeding g astric varices 76363349 I86.4 source of anemiaomep razole [address] dailysucra lfate 1 gm BIDcontinu e PPI and sucralfate Homeless 90878753 Z59.00 Social service refer for community resources. [id number] Lis Oconnell MD [facility] on [address] [place] [address] 09/13/2023 05:12:10 09/15/2023 08:33:31 Acute on chronic diastolic heart failure 093106564 I50.33 improved:s pironolact one 12.5 mg bidfurosem eliana 20 mg bidwill monitor Alcohol abuse 82390782 F 10.10 thiamine 100 mg dailyfolic acid 1 gm dailyinter disciplina ry support for sobrietywi ll monitor and support as needed Bleeding e sophageal varices 64666340 I85.01 s/p blood transfusio ns, octeotride , banding/he mospray:om eprazole 40 mg dailysucra lfate 1 gm bidwill monitor Alcoholic cirrhosis 4200 66982 K70.31 Xifaxan 550 mg bidspirono lactone 12.5 mg bidfurosem eliana 20 mg bidwill monitor Hepatic encephalopathy 91088206 K76.82 lactulose 40 gm tidwill monitor [id number] HALEY WYATT [facility] on [address] [place] [address] 09/18/2023 11:37:36 09/20/2023 15:12:00 Congestive heart failure 21565329 I50.9 continue furosemide 20 mg BIDcontinu e spironolac tone 12.5 mg BIDlow salt diet.monit or weight Alcohol abuse 04800794 F 10.10 will consider acamprosta te 666 mg TID.thiami ne 100 mg dailyfolic acid 1 mg daily Bleeding g astric varices 72757553 I86.4 source of anemiaomep razole [address] dailysucra lfate 1 gm BIDcontinu e PPI and sucralfate Hepatic encephalopathy 64387947 K76.82 resolved in acute care/see hpistarted on lactuloser ifaximin 550 mg BIDlactulo se 40 g TID.- reports loose stool x's 1 daily. will continue to monitor for now . [id number] HALEY WYATT [facility] on [address] [place] [phone] 10/06/2023 10:25:53 10/18/2023 12:16:47 Altered mental status 319875025 R41.82 see hpiconcern for hepatic encephalop athy due to hxsend to ER for further evaluation [id number] HALEY WYATT [facility] on [address] [place] [address] 10/12/2023 13:49:36 10/18/2023 15:10:16 Hepatic encephalopathy 62538486 K76.82 resolved in acute care/see hpiimaging with no acute processCon tinue lactulose, rifaximin, Lasix, spironolac toneFollow -up outpatient GI Congestive heart failure 74108205 I50.9 continue furosemide 20 mg BIDcontinu e spironolac tone 12.5 mg BIDlow salt diet.monit or weight Pancytopenia 126531907 D 61.818 wbc 3.41-Hgb 7.3-HCT 23.2Possib ly due to alcohol abuseWill continue to monitor CBC [id number] HALEY WYATT [facility] on [address] [place] [id number] 10/16/2023 13:03:21 11/22/2023 15:10:28 Hepatic encephalopathy 80340489 K76.82 resolved in acute care/see hpiimaging with no acute processCon tinue lactulose, rifaximin, Lasix, spironolac toneFollow -up outpatient GI Congestive heart failure 29245432 I50.9 continue furosemide 20 mg BIDcontinu e spironolac tone 12.5 mg BIDlow salt diet.monit or weight Pancytopenia 572470251 D 61.818 see aboveimpro kiki hgb 8.8- Plt 68Possibly due to alcohol abuseWill continue to monitor CBC [id number] HALEY WYATT [facility] on [address] [place] [id number] 10/24/2023 11:18:12 11/03/2023 11:47:28 Hepatic encephalopathy 61765624 K76.82 alert and oriented x's 2 today unsure of date.resol kiki in acute care/see hpiimaging with no acute processCon tinue lactulose, rifaximin, Lasix, spironolac toneFollow -up outpatient GI Congestive heart failure 13688520 I50.9 Stablke, no reported sxcontinue furosemide 20 mg BIDcontinu e spironolac tone 12.5 mg BIDlow salt diet.monit or weight Pain of le ft shoulder joint 4205444107 8050440 M25.512 see hpixray 3 viewstylen ol 975 mg scheduledm otrin 600 mg scheduled. PT referral for pain with abduction. [id number] HALEY WYATT [facility] on [address] [place] [phone] 10/27/2023 09:08:50 11/03/2023 12:28:46 Hepatic encephalopathy 60125792 K76.82 appears to be a baseline status, however he appears disoriente d at times.Cont inue lactulose, rifaximin, Lasix, spironolac toneFollow -up outpatient GI Congestive heart failure 07186103 I50.9 Stablecont inue furosemide 20 mg BIDcontinu e spironolac tone 12.5 mg BIDlow salt diet.monit or weight Pain of le ft shoulder joint 3035431187 7123137 M25.512 Xray completed, results reviewed with patient: Mild degenerati on of the left shoulder; no acute fracture or dislocatio n. continue with:tylen ol 975 mg scheduledm otrin 600 mg scheduled. PT referral for pain with abduction. [id number] HALEY WYATT [facility] on [address] [place] [phone] 11/08/2023 08:13:22 11/22/2023 16:43:01 Daisy-Zee tear 520474158 K22.6 2 days of melena with coffee-kell und emesis on presentati on.GI consulted and performed upper endoscopy on 10/31, evidence of daisy zee tear, gastric ulcers s/p clip placement. continue PPI omeprazole 40 mg twice daily.Carv edilol started as per recommenda tions for esophageal varicesPat ient was advised to avoid NSAID Esophageal varices 45886 008 I85.00 Started on carvedilol 6.25 mg bidomepraz ole 40 mg bidsucralf ate 1 gm BID Anemia 632275414 D64.9 Hgb 6.4 on presentati on to acute careDue to upper GI bleed,Rece ived 3 units of PRBC in acute careCarved ilol started for varices [id number] HALEY WYATT [facility] on [address] [place] [phone] 11/14/2023 07:57:53 12/01/2023 10:08:54 Daisy-Zee tear 740567000 K22.6 11/14 there has been no reported couging and vomiting. 2 days of melena with coffee-kell und emesis on presentati on.GI consulted and performed upper endoscopy on 10/31, evidence of daisy zee tear, gastric ulcers s/p clip placement. continue PPI omeprazole 40 mg twice daily.Carv edilol started as per recommenda tions for esophageal varicesPat ient was advised to avoid NSAID Esophageal varices 37472 008 I85.00 stableStar forrest on carvedilol 6.25 mg bidomepraz ole 40 mg bidsucralf ate 1 gm BID Anemia 076825883 D64.9 11/14will recheck labspatien t denies excess fatigue, weakness, shortness of breathdoes not appear pale, color normal. Hgb 6.4 on presentati on to acute careDue to upper GI bleed,Rece ived 3 units of PRBC in acute careCarved ilol started for varices [id number] HALEY WYATT [facility] on [address] [place] [address] 11/17/2023 08:07:13 12/01/2023 11:37:06 Daisy-Zee tear 346746600 K22.6 stable, There has been no new reported sx.2 days of melena with coffee-kell und emesis on presentati on.GI consulted and performed upper endoscopy on 10/31, evidence of daisy zee tear, gastric ulcers s/p clip placement. continue PPI omeprazole 40 mg twice daily.Carv edilol started as per recommenda tions for esophageal varicesPat ient was advised to avoid NSAID Esophageal varices 88199 008 I85.00 stableStar forrest on carvedilol 6.25 mg bidomepraz ole 40 mg bidsucralf ate 1 gm BID Anemia 729101577 D64.9 11/15: hgb 8.0 hct 25.6will recheck labs Hgb 6.4 on presentati on to acute careDue to upper GI bleed,Rece ived 3 units of PRBC in acute careCarved ilol started for varices [id number] Lis Oconnell MD [facility] on [address] [place] [phone] 11/24/2023 08:20:43 11/29/2023 17:59:33 Alcohol abuse 78159818 F10.10 thiamine 100 mg dailyfolic acid 1 gm dailyMVI dailyacamp rosate 666 mg tidinterdi sciplinary support for sobrietywi ll monitor and support as needed Upper gastrointestinal bleeding 63435726 K92.89 with history varices, Daisy Zee tear:sucra lfate 1 gm bidomepraz ole 40 mg [id number] monitoravo id NSAIDs Alcoholic cirrhosis 4200 88135 K70.31 Xifaxan 550 mg bidspirono lactone 12.5 mg bidfurosem eliana 20 mg dailylactu lose 40gm tidwill monitor Esophageal varices 08883 008 I85.00 see meds for history UGI bleed:also carvedilol 6.25 mg bidwill monitor [id number] BRADY HOGAN NP [facility] on [address] [place] [address] 11/28/2023 09:53:56 12/01/2023 12:57:26 Alcohol abuse 43887716 F10.10 thiamine 100 mg dailyfolic acid 1 gm dailyMVI dailyacamp rosate 666 mg tidinterdi sciplinary support for sobrietywi ll monitor and support as needed Upper gastrointestinal bleeding 94311016 K92.89 with history varices, Daisy Zee tear:sucra lfate 1 gm bidomepraz ole 40 mg [id number] monitoravo id NSAIDs Alcoholic cirrhosis 4200 52738 K70.31 Xifaxan 550 mg bidspirono lactone 12.5 mg bidfurosem eliana 20 mg dailylactu lose 40gm tidwill monitor Esophageal varices 26284 008 I85.00 see meds for history UGI bleed:carv edilol 6.25 mg bidwill monitor Health Concerns Section Related Observation LastModified by Organization Detai ls LastModified Time None Recorded Concern Status LastModified by Organization Details LastModified Time None Recorded Advance Directives Directive Y: Payers Encounter Date Sequence Insurance Name Policy Number Policy Yip Covered Member ID Yip Member ID Guarantor Name 11/08/2023 1 [place] [facility] Charbel Delgado [id number] Charbel Delgado 11/14/2023 1 [place] [facility] Charbel Delgado [id number] Charbel Delgado 11/17/2023 1 [place] [id number] Charbel Delgado 11/24/2023 1 [place] [facility] [id number] Charbel Delgado 11/28/2023 1 [place] [facility] [id number] Charbel Delgado Notes Date Note Type Note [...] a few weeks. Molst: HALEY Cummings [address] [facility], [address], [place], [address], [facility] 11/08/2023 16:31:23 11/14/2023 text/html Patient is 53-ye ar-old male seen today for acute rounding visit. Today he is stable, he was sent to ED on 11/09 for hgb noted 7.0 and had repeat labs in ED hgb 8.1. He returned to [facility] the same evening and has been stable. [...] in a few weeks. HALEY WYATT [address] [facility], [address], [place], [address], [facility] 11/14/2023 21:53:05 11/17/2023 text/html Patient is [...] no acute nursing concerns. HALEY WYATT [address] [facility], [address], [place], [address], [facility] 11/17/2023 13:21:44 11/24/2023 text/html This 53 year old male half-way care resident is seen today for routine rounding visit and acute rounding visit. Medical history is remarkable for history of alcohol use disorder with alcoholic cirrhosis, HFpEF, hypertension, ADHD, anxiety, depression Patient was sent out of facility to ER at [facility] on 10/30/23 with melena and coffee-ground emesis. [...] full code assumed Lis Oconnell MD [address] [facility], [address], [place], [address], [facility] 11/24/2023 12:23:26 11/28/2023 text/html seen today for a cute rounding visit, CAOx3 he is complaining about being bored, independent in room, gait steady, mood stable, staff report no concerns BRADY HOGAN NP [address] [facility], [address], [place], [address], [facility] 11/28/2023 10:23:34
--- OUTSIDE RECORDS SUMMARY | 2025-02-18 20:42 | XMS_ITS | Encounter Summary ---
Author Organization [employer] [facility] Address [address] [facility] [place] [address] Care Team Providers Care Legal Research Analyst Name Role Phone Unavailable Primary Care Provider Unavailabl e Encounter Details Date Type Department Care Team (Late st Contact Info) Description 02/11/2025 Orders Only [facility] External Provider, [facility] Social History Tobacco Use Types Packs/Day Years Used Date Smoking Tobacco: Never Assessed Sex and Gender Information Value Date Recorded Sex Assigned at Male 11/23/2022 11:29 AM EST Legal Sex Male 11:26 AM EST Gender Identity Male 11/23/2022 11:29 AM EST Sexual Orientation Straight 01/11/2024 8: 14 AM EST documented as of this encounter Progress Notes * Coral Underwood RN - 02/11/2025 11:19 AM EDT T/C to pt to review [facility] walk-in clinic if pt is in need of follow-up help. Pt is not an [facility] patientat this time but has upcoming new patient appointment with Dr. Murry in April. No answer left voicemail to return call to [facility]. Pt to F/U PRN documented in this encounter Plan of Treatment Upcoming Encounters Date Type Department Care Team (Late st Contact Info) Description 05/02/2025 10:00 AM EDT Office Visit [facility] [address] [place], [place] [id number] Misti Murry MD [address] [place] [address] documented as of this encounter Procedures Procedure Name Priority Date/Time Associated Diagnosis Comments XR CHEST 1 VIEW Routine 02/11/2025 11:05 AM EDT documented in this encounter Results * XR Chest 1 View (02/11/2025 11:05 AM EDT) Anatomical Region Laterality Modality Chest Radiographic Lamar ging 02/11/2025 11:0 5 AM EDT Narrative 02/11/2025 11:19 AM EDT ? [facility] ?[address] ?[place] [address] ?XRay Report ? Signed ? Patient: Delgado,Charbel ?MR#: [id number] ? : 1970 ?Acct:[id number] ? Age/Sex: 55 / M ?ADM Date: 02/11/25 ? Loc: HO.S3 ?370-1 ? Attending Dr: Rolan Baker MD ? Ordering Physician: Rolan Baker MD ?? Date of Service: 02/11/25 ?? Procedure(s): XR chest 1V ?? Accession Number(s): [id number] ? cc: [facility]; Rolan Baker MD ? EXAMINATION: ??XR [...] DD/ 1105 ? TD/TT: 02/11/25 1111 ? Chemical Maker: ? Procedure Note [employer] - 02/11/[address] [address] XRay Report Signed Patient: Isaias Delgado#: [id number] : 1970Acct:[id number] Age/Sex: 55 / MADM Date: 02/11/25 Loc: [facility] 370-[address]: Rolan Baker MD Ordering Physician: Rolan Baker MD Date of Service: 02/11/25 Procedure(s): XR chest 1V Accession Number(s): [id number] cc: [facility]; Rolan Baker MD EXAMINATION: XR CHEST [...] 02/11/25 1116 DD/ 1105 TD/TT: 02/11/25 1111 Chemical Maker: [facility] External Provider IMG XR PROCEDURES Final Result documented in this encounter Visit Diagnoses Not on filedocumented in this encounter
--- OUTSIDE RECORDS SUMMARY | 2025-02-18 20:42 | XMS_ITS | Clinical Summary ---
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 Name Role Phone Unavailable Primary Care Provider [...] Patient presented with altered mental status from [facility] where he appeared more lethargic than his [...] Department Care Team Description 02/13/2025 Patient Outreach [address] [address] Misti Murry MD Care Coordination (Outreach) 02/11/2025 Orders Only [facility] External Provider, [facility] 02/10/2025 Orders Only GENERIC EXTERNAL DATA DEPARTMENT Provider, Generic External Data 02/08/2025 Orders Only GENERIC EXTERNAL DATA DEPARTMENT Provider, Generic External Data 02/07/2025 Orders Only GENERIC EXTERNAL DATA DEPARTMENT Provider, Generic External Data 02/07/2025 Patient Outreach [address] [address] Misti Murry MD Care Coordination (C3/CM Outreach) 02/06/2025 Orders Only GENERIC EXTERNAL DATA DEPARTMENT Provider, Generic External Data 02/05/2025 Patient Outreach [address] [address] Santosh Daley MD Care Coordination (C3/CM Chart Review) 02/05/2025 Patient Outreach [facility] [address] [place] [address] Missy Milner RN Care Coordination (C3CM chart review) 02/05/2025 Patient Outreach [address] [address] Santosh Daley MD 01/31/2025 Orders Only GENERIC EXTERNAL DATA DEPARTMENT Provider, Generic External Data 01/30/2025 Orders Only GENERIC CTC DEPARTMENT [facility] 01/24/2025 Patient Outreach [facility] [address] [place] [address] Santosh Daley MD Care Coordination (Outreach) 01/24/2025 Population Health Risk Score [facility] (C3) Department [address] [phone] Provider, Population Health Generic 01/14/2025 Patient Outreach [facility] [address] [place] [address] Santosh Daley MD Care Coordination (Outreach) 01/06/2025 Patient Outreach [facility] [address] [place] [address] Santosh Daley MD Care Coordination (Outreach) 12/26/2024 Patient Outreach [facility] [address] [place] [address] Santosh Daley MD Care Coordination (Outreach) 11/29/2024 Orders Only GENERIC EXTERNAL DATA DEPARTMENT Provider, Generic External Data 11/28/2024 Orders Only [facility] External Provider, [facility] 11/27/2024 Orders Only GENERIC EXTERNAL DATA DEPARTMENT Provider, Generic External Data from Last 3 Months Immunizations Name Administration Dates Next Due [employer] SARS-CoV-2 Vaccination 04/28/2021 Pfizer Covid-19 Vaccine 12+ [...] Description 05/02/2025 10:00 AM EDT Office Visit [facility] [address] [place] [address] Misti Murry MD [address] [place] [address] Health Maintenance Due Date Last Done Comments [...] EDT Narrative 02/11/2025 11:19 AM EDT ? [facility] ?[address] ?[place] [address] ?XRay Report ? Signed ? Patient: Charbel Delgado ?MR#: [id number] ? : 1970 ?Acct:[id number] ? Age/Sex: 55 / M ?ADM Date: 02/11/25 ? Loc: HO.S3 ?370-1 ? Attending Dr: Rolan Baker MD ? Ordering Physician: Rolan Baker MD ?? Date of Service: 02/11/25 ?? Procedure(s): XR chest 1V ?? Accession Number(s): [id number] ? cc: [facility]; Rolan Baker MD ? EXAMINATION: ??XR [...] DD/ 1105 ? TD/TT: 02/11/25 1111 ? Residential Designer: ? Procedure Note Donfrandyfernandopatrick, Image - 02/11/[address] [address] XRay Report Signed Patient: Isaias Delgado#: [id number] : 1970Acct:[id number] Age/Sex: 55 / MADM Date: 02/11/25 Loc: .S3 370-[address]: Rolan Baker MD Ordering Physician: Rolan Baker MD Date of Service: 02/11/25 Procedure(s): XR chest 1V Accession Number(s): [id number] cc: [facility]; Rolan Baker MD EXAMINATION: XR CHEST [...] 02/11/25 1116 DD/ 1105 TD/TT: 02/11/25 1111 Residential Designer: [facility] External Provider IMG XR PROCEDURES Final Result * Ethanol (02/10/2025 11:37 PM EDT) Only the most recent of7 resultswithin the time period is included. Pathologist [facility] ETHANOL (MG/DL) IN SER/PLAS 213 mg/dL [facility] Comment:Serum/plasma ethanol results are to be used formedical/treatment purposes only. 02/10/2025 11:3 7 PM EDT 02/10/2025 11:43 PM EDT Generic External Data Provider LAB BLOOD ORDERAB LES Final Result [facility] [address] [place] [address] [phone] * (ABNORMAL) CBC auto differential (02/10/2025 11:37 PM EDT) Only the most recent of9 resultswithin the time period is included. [facility] White Blood Count 3.5(L) 4.8 - 10.8 X10*3/uL [facility] Red Blood Count 2.32(L) 4.60 - 5.80 X10*6/uL [facility] Hemoglobin 7.2(L) 14.0 - 18.0 g/dl [facility] Hematocrit 22.0(L) 42.0 - 52.0 % [facility] Mean Corpuscular Volume 94.8 80.0 - 98.0 fL [facility] Mean Corpuscular Hemoglobin 31.0 27.0 - 33.0 pg [facility] Mean Corpuscular HGB Conc 32.7 31.0 - 36.0 g/dl [facility] Red Cell Distribution Width 14.6 11.0 - 16.0 % [facility] Platelet Count 53(L) 160 - 400 X10*3/uL [facility] Mean Platelet Volume 11.0 9.4 - 12.4 fL [facility] Neutrophils Percent Auto 55.6 45 - 73 % [facility] Imm Gran Pct Auto 0.3 0.0 - 0.4 % [facility] Lymphocytes Percent Auto 29.1 20 - 40 % [facility] Monocytes Percent Auto 9.6 2 - 11 % [facility] Eosinophils Percent Auto 4.8(H) 0 - 4 % [facility] Basophils Percent Auto 0.6 0 - 2 % [facility] NRBC Pct Auto 0.0 0.0 - 0.2 /100WBC [facility] Neutrophils Absolute Auto 2.0 2.0 - 8.3 x10*3/uL [facility] Imm Gran Abs Auto 0.01 0.00 - 0.03 X10*3/uL [facility] Lymphocytes Absolute Auto 1.0(L) 1.2 - 4.9 X10*3/uL [facility] Monocytes Absolute Auto 0.3 0.1 - 1.2 X10*3/uL [facility] Eosinophils Absolute Auto 0.2 0.0 - 0.4 X10*3/uL [facility] Basophils Absolute Auto 0.0 0.0 - 0.2 X10*3/uL [facility] NRBC Abs Auto 0.000 0.0 - 0.012 X10*3/uL [facility] 02/10/2025 11:3 7 PM EDT 02/10/2025 11:43 PM EDT us Generic External Data Provider LAB BLOOD ORDERAB LES Final Result [facility] [address] [place] [address] [phone] * Magnesium (02/10/2025 11:37 PM EDT) Only the most recent of3 resultswithin the time period is included. Magnesium 1.7 1.6 - 2.6 mg/dL [facility] 02/10/2025 11:3 7 PM EDT 02/10/2025 11:43 PM EDT us Generic External Data Provider LAB BLOOD ORDERAB LES Final Result [facility] [address] [place] [address] [phone] * (ABNORMAL) Comprehensive Metabolic Panel (02/10/2025 11:37 PM EDT) Only the most recent of7 resultswithin the time period is included. Sodium 137 135 - 145 mmol/L [facility] Potassium 3.9 3.3 - 5.1 mmol/L [facility] Chloride 112(H) 96 - 108 mmol/L [facility] Carbon Dioxide 16(L) 22 - 29 mmol/L [facility] Anion Gap 13 12 - 20 [facility] Urea Nitrogen (BUN) 10 9 - 16 mg/dL [facility] Creatinine, Serum 0.72 0.5 - 1.4 mg/dL [facility] Creatinine Clr Calc Pharmacy 99.6 [facility] Comment:eGFR (calculated fro m the MDRD study equation) and eCrCl(calculated from the Cockcroft-Gault equation) are based ondifferent parameters and may not yield comparable results.If eCrCl result is absurd, please check patient'sheight/weight. Estimated Glomerular Filt Rate >60 [facility] Comment:Chronic Kidney Disea se: Estimated GFR < 60 mL/min/1.91y2Dgdrjb Kidney Disease: Estimated GFR < 15 mL/min/1.73m2 Glucose 92 60 - 115 mg/dL [facility] Calcium 8.5 8.4 - 10.2 mg/dL [facility] Bilirubin, Total 0.4 0.0 - 1.0 mg/dL [facility] Aspartate Amino Transferase 26 5 - 37 U/L [facility] Alanine Aminotransferase <6 0 - 40 U/L [facility] Total Protein 6.8 6.5 - 8.0 g/dL [facility] Albumin Level 3.2(L) 3.5 - 5.0 g/dL [facility] Alkaline Phosphatase 83 39 - 117 U/L [facility] 02/10/2025 11:3 7 PM EDT 02/10/2025 11:43 PM EDT us Generic External Data Provider LAB BLOOD ORDERAB LES Final Result Performing Organization Address [facility]/ZIP Co de Phone Number [facility] [address] [place] [phone] * (ABNORMAL) VENOUS BLOOD GAS (02/08/2025 6:41 PM EDT) Only the most recent of2 resultswithin the time period is included. VBG pH 7.45(H) 7.32 - 7.43 [facility] Comment:METER #: [id number] additional_comment: Cb nsl VBG PCO2 31 mmHg [facility] Comment:METER #: [id number] additional_comment: Cb nsl VBG PO2 43 mmHg [facility] Comment:METER #: [id number] additional_comment: Cb nsl VBG Base Excess -1.0 mmol/L [facility] Comment:METER #: [id number] additional_comment: Cb nsl VBG HCO3 22 22 - 26 mmol/L [facility] Comment:METER #: [id number] additional_comment: Cb nsl O2 Sat, Demetrio 66.0 % [facility] Comment:METER #: [id number] additional_comment: Cb nsl 02/08/2025 6:41 PM EDT 02/08/2025 6:44 PM EDT us Generic External Data Provider LAB BLOOD ORDERAB LES Final Result Performing Organization Address City/[facility]/ZIP Co de Phone Number [facility] [address] [place] [phone] * (ABNORMAL) Lactic Acid (02/08/2025 6:30 PM EDT) Only the most recent of2 resultswithin the time period is included. Lactic Acid 2.9(HH) 0.5 - 2.0 mmol/L [facility] Comment:Critical value for t est(s): LACTIC Results called to gildardo back by: PRACHI Person calling: JENNIE Date: 02/08/25Time: 1858 02/08/2025 6:30 PM EDT 02/08/2025 6:37 PM EDT us Generic External Data Provider LAB BLOOD ORDERAB LES Final Result [facility] [address] [place] [address] [phone] * CTA Chest PE Protocal (02/08/2025 4:12 AM EDT) Anatomical Region Laterality Modality Body, Chest Computed Tomogra phy 02/08/2025 4:12 AM EDT Narrative 02/08/2025 4:15 AM EDT ? [facility] ?[address] ?[place] [address] ? CT Scan Report ? Signed ? Patient: Charbel Delgado ?MR#: [id number] ? : 1970 ?Acct:[id number] ? Age/Sex: 55 / M ?ADM Date: 02/07/25 ? Loc: HO.ED ? Attending Dr: ? Ordering Physician: Alexandria Sweeney MD ?? Date of Service: 02/08/25 ?? Procedure(s): CT angio chest PE protocol ?? Accession Number(s): [id number] ? cc: [facility]; Alexandria Sweeney MD ? Report Number: ?? [id number]: Total DLP = ??260.00 mGy-cm ? CLINICAL [...] DD/ 0412 ? TD/TT: 02/08/25 0412 ? Residential Designer: ? Procedure Note Moy, Image - 02/08/[address] [place] [address] [address] Scan Report Signed Patient: Isaias Delgado#: [id number] : 1970Acct:[id number] Age/Sex: 55 / MADM Date: 02/07/25 Loc: HO.ED Attending Dr: Ordering Physician: Alexandria Sweeney MD Date of Service: 02/08/25 Procedure(s): CT angio chest PE protocol Accession Number(s): [id number] cc: [facility]; Alexandria Sweeney MD Report Number: [id number]: Total DLP = 260.00 mGy-cm CLINICAL HISTORY: [...] This document has been electronically signed by: Ranadl Mendoza MD on 02/08/2025 04:12:55 Dictated By: Randal Mendoza MD Signed By: <Electronically signed by Randal Mendoza MD in OV> 02/08/[address] DD/ 1 TD/TT: 02/08/[address] Residential Designer: [facility] External Provider IMG CT PROCEDURES Edited Result - Final * CT Head w/o Contrast (02/08/2025 4:05 AM EDT) Only the most recent of3 resultswithin the time period is included. Anatomical Region Laterality Modality Head, Neck Computed Tomogra phy 02/08/2025 4:05 AM EDT Narrative 02/08/2025 4:07 AM EDT ? [facility] ?[address] ?[place] [address] ? CT Scan Report ? Signed ? Patient: Delgado,Charbel ?MR#: [id number] ? : 1970 ?Acct:[id number] ? Age/Sex: 55 / M ?ADM Date: 03/28/25 ? Loc: HO.ED ? Attending Dr: ? Ordering Physician: Alexandria Sweeney MD ?? Date of Service: 02/08/25 ?? Procedure(s): CT head/brain wo IV con ?? Accession Number(s): [id number] ? cc: [facility]; Alexandria Sweeney MD ? Report Number: ?? [id number]: Total DLP = ??618.00 mGy-cm ? CLINICAL [...] DD/ 0405 ? TD/TT: 02/08/25 0405 ? Residential Designer: ? Procedure Note Moy, Image - 02/08/[address] [place] [address] [address] Scan Report Signed Patient: Isaias Delgado#: [id number] : 1970Acct:[id number] Age/Sex: 55 / MADM Date: 02/07/25 Loc: HO.ED Attending Dr: Ordering Physician: Alexandria Sweeney MD Date of Service: 02/08/25 Procedure(s): CT head/brain wo IV con Accession Number(s): [id number] cc: [facility]; Alexandria Sweeney MD Report Number: [id number]: Total DLP = 618.00 mGy-cm CLINICAL HISTORY: [...] in OV> 02/08/25405 DD/ 4 TD/TT: 02/08/25404 Residential Designer: [facility] External Provider IMG CT PROCEDURES Edited Result - Final * (ABNORMAL) Drug Monitoring, Panel 1, Screen, Urine (02/08/2025 2:29 AM EDT) Opiate Screen Urine Not Detected Not Detect [facility] Comment:Opiate cut-off is 30 0 ng/mL.Positive results are unconfirmed and should not be used fornon-medical purposes. Barbiturates, Urine POSITIVE(A) Not Detect [facility] Comment:Barbiturate cut-off is 200 ng/mL.Positive results are unconfirmed and should not be used fornon-medical purposes. Phencyclidine Screen Urine Not Detected Not Detect [facility] Comment:Phencyclidine cut-of f is 25 ng/mL.Positive results are unconfirmed and should not be used fornon-medical purposes. Amphetamine Screen Urine Not Detected Not Detect [facility] Comment:Amphetamine cut-off is 1000 ng/mL.Positive results are unconfirmed and should not be used fornon-medical purposes. Benzodiazepines Screen Urine Not Detected Not Detect [facility] Comment:Benzodiazepine cut-o ff is 200 ng/mL.Positive results are unconfirmed and should not be used fornon-medical purposes. Cocaine Screen Urine Not Detected Not Detect [facility] Comment:Cocaine cut-off is 3 00 ng/mL.Positive results are unconfirmed and should not be used fornon-medical purposes. Cannabinoid Screen Urine Not Detected Not Detect [facility] Comment:Cannabinoid cut-off is 50 ng/mL.Positive results are unconfirmed and should not be used fornon-medical purposes. Methadone Screen, Urine Not Detected Not Detect ng/mL [facility] Comment:Methadone cut-off is 300 ng/mL.Positive results are unconfirmed and should not be used fornon-medical purposes. FENTANYL URINE Not Detected Not Detect [facility] Comment:Fentanyl cut-off is 1 ng/mL.Positive results are unconfirmed and should not be used fornon-medical purposes. Oxycodone Urine Screen Not Detected Not Detect ng/mL [facility] Comment:Oxycodone cut-off is 100 ng/mL.Positive results are unconfirmed and should not be used fornon-medical purposes. Buprenorphine Screen Not Detected Not Detect ng/mL [facility] Comment:Buprenorphine cut-of f is 5 ng/mL.Positive results are unconfirmed and should not be used fornon-medical purposes. 02/08/2025 2:29 AM EDT 02/08/2025 2:38 AM EDT Generic External Data Provider LAB URINE ORDERAB LES Final Result Performing Organization Address [facility] Co de Phone Number [facility] [address] [place] [address] [phone] * High Sensitivity Troponin I (02/08/2025 1:52 AM EDT) TROPONIN I HIGH SENSITIVITY <2.7 <3.5 - 35.0 ng/L [facility] Comment:The Connolly high sens itivity Troponin-I results should beused in conjunction with other diagnostic information suchas ECG, clinical observations and information, and patientsymptoms to aid in the diagnosis of PA. 02/08/2025 1:52 AM EDT 02/08/2025 1:55 AM EDT Generic External Data Provider LAB BLOOD ORDERAB LES Final Result Performing Organization Address [facility] Co de Phone Number [facility] [address] [place] [address] [phone] * SARS-CoV-2 RNA, Influenza A/B, and RSV RNA, Ql NAAT (02/08/2025 1:52 AM EDT) Only the most recent of2 resultswithin the time period is included. Influenza A PCR NEGATIVE Negative [facility] Influenza B PCR NEGATIVE Negative [facility] Resp Syncy Virus RNA Qual PCR NEGATIVE Negative [facility] SARS COV2 PCR NEGATIVE Negative [facility] Comment:All test results mus t [...] use by authorized laboratories.Testing performed on the [employer] GeneXpert utilizingreal-time RT-PCR.All SARS CoV2 and positive influenza A/B results arereported to [facility]. 02/08/2025 1:52 AM EDT 02/08/2025 1:55 AM EDT Generic External Data Provider LAB MICROBIOLOGY - GENERAL ORDERABLES Final Result [facility] [address] [place] [phone] * (ABNORMAL) Prothrombin Time-INR (02/08/2025 1:52 AM EDT) Only the most recent of2 resultswithin the time period is included. Prothrombin Time 15.3(H) 10.9 - 12.4 SEC [facility] INTERNATIONAL NORM RATIO 1.3(H) 0.9 - 1.1 [facility] Comment:INTERNATIONAL NORMAL IZED RATIO (INR) [...] ORDERAB LES Final Result Performing Organization Address [facility] de Phone Number [facility] [address] [place] [phone] * (ABNORMAL) B Type Natriuretic Peptide (BNP) (02/08/2025 1:52 AM EDT) B Type Natriuretic Peptide 147(H) <100 pg/mL [facility] 02/08/2025 1:52 AM EDT 02/08/2025 1:55 AM EDT Generic External Data Provider LAB BLOOD ORDERAB LES Final Result Performing Organization Address [facility] [address] [place] [phone] * (ABNORMAL) Ammonia, Plasma (02/08/2025 1:52 AM EDT) Only the most recent of3 resultswithin the time period is included. Ammonia (P) 65(H) 13 - 55 umol/L [facility] 02/08/2025 1:52 AM EDT 02/08/2025 2:03 AM EDT Generic External Data Provider LAB BLOOD ORDERAB LES Final Result Performing Organization Address [facility] Phone Number [facility] [address] [place] [phone] * Hepatic Function Panel (02/08/2025 1:52 AM EDT) Only the most recent of2 resultswithin the time period is included. Pathologist [facility] Bilirubin, Total 0.4 0.0 - 1.0 mg/dL [facility] Bilirubin, Direct 0.2 0.0 - 0.5 mg/dL [facility] Aspartate Amino Transferase 33 5 - 37 U/L [facility] Alanine Aminotransferase 9 0 - 40 U/L [facility] Total Protein 7.1 6.5 - 8.0 g/dL [facility] Albumin Level 3.5 3.5 - 5.0 g/dL [facility] Alkaline Phosphatase 86 39 - 117 U/L [facility] 02/08/2025 1:52 AM EDT 02/08/2025 1:55 AM EDT us Generic External Data Provider LAB BLOOD ORDERAB LES Final Result [facility] [address] [place] [phone] * (ABNORMAL) Basic Metabolic Panel (02/08/2025 1:52 AM EDT) Only the most recent of2 resultswithin the time period is included. [facility] Sodium 140 135 - 145 mmol/L [facility] Potassium 4.0 3.3 - 5.1 mmol/L [facility] Chloride 113(H) 96 - 108 mmol/L [facility] Carbon Dioxide 18(L) 22 - 29 mmol/L [facility] Anion Gap 13 12 - 20 [facility] Urea Nitrogen (BUN) 17(H) 9 - 16 mg/dL [facility] Creatinine, Serum 0.83 0.5 - 1.4 mg/dL [facility] Creatinine Clr Calc Pharmacy 76.5 [facility] Comment:eGFR (calculated fro m the MDRD study equation) and eCrCl(calculated from the Cockcroft-Gault equation) are based ondifferent parameters and may not yield comparable results.If eCrCl result is absurd, please check patient'sheight/weight. Estimated Glomerular Filt Rate >60 [facility] Comment:Chronic Kidney Disea se: Estimated GFR < 60 mL/min/1.32b0Aoozbw Kidney Disease: Estimated GFR < 15 mL/min/1.73m2 Glucose 95 60 - 115 mg/dL [facility] Calcium 8.5 8.4 - 10.2 mg/dL [facility] 02/08/2025 1:52 AM EDT 02/08/2025 1:55 AM EDT us Generic External Data Provider LAB BLOOD ORDERAB LES Final Result Performing Organization Address [facility] Co de Phone Number [facility] [address] [place], [place] [phone] * Lipase (02/06/2025 12:39 AM EDT) Only the most recent of4 resultswithin the time period is included. Lipase 24 8 - 78 U/L [facility] 02/06/2025 12:3 9 AM EDT 02/06/2025 12:45 AM EDT Generic External Data Provider LAB BLOOD ORDERAB LES Final Result Performing Organization Address [facility] de Phone Number [facility] [address] [place] [address] [phone] * CT Abdomen Pelvis w/ Contrast (11/29/2024 5:14 AM EST) Anatomical Region Laterality Modality Body, Pelvis, Abdomen Computed T omography 11/29/2024 5:14 AM EST Narrative 11/29/2024 5:16 AM EST ? [facility] ?[address] ?[place] [address] ? CT Scan Report ? Signed ? Patient: Delgado,Charbel ?MR#: [id number] ? : 1970 ?Acct:[id number] ? Age/Sex: 54 / M ?ADM Date: 01/16/25 ? Loc: HO.ED ? Attending Dr: ? Ordering Physician: Trudy Brannon ?? Date of Service: 11/29/24 ?? Procedure(s): CT abdomen pelvis w IV con ?? Accession Number(s): [id number] ? cc: Trudy Brannon; [facility] ? Report Number: ?? [id number]: Total DLP = ??512.00 mGy-cm ? CLINICAL [...] DD/ 0514 ? TD/TT: 11/29/24 0514 ? Residential Designer: ? Procedure Note Renato Winter - 11/29/[address] [address] [address] Scan Report Signed Patient: Isaias Delgado#: [id number] : 1970Acct:[id number] Age/Sex: 54 / MADM Date: 11/28/24 Loc: HO.ED Attending Dr: Ordering Physician: Trudy Brannon Date of Service: 11/29/24 Procedure(s): CT abdomen pelvis w IV con Accession Number(s): [id number] cc: Trudy Brannon; [facility] Report Number: [id number]: Total DLP = 512.00 mGy-cm CLINICAL HISTORY: [...] 11/29/24 0515 DD/ 0514 TD/TT: 11/29/24 0514 Residential Designer: [facility] External Provider IMG CT PROCEDURES Edited Result - Final * CT Chest w/ Contrast (11/29/2024 5:14 AM EST) Anatomical Region Laterality Modality Body, Chest Computed Tomogra phy 11/29/2024 5:14 AM EST Narrative 11/29/2024 5:16 AM EST ? [facility] ?[address] ?[place] [address] ? CT Scan Report ? Signed ? Patient: Delgado,Charbel ?MR#: [id number] ? : 1970 ?Acct:[id number] ? Age/Sex: 54 / M ?ADM Date: 11/28/24 ? Loc: HO.ED ? Attending Dr: ? Ordering Physician: Trudy Brannon ?? Date of Service: 11/29/24 ?? Procedure(s): CT chest w IV con ?? Accession Number(s): [id number] ? cc: Trudy Brannon; [facility] ? Report Number: ?? [id number]: Total DLP = ??248.00 mGy-cm ? CLINICAL HISTORY: infection, aspiraion ? CT chest with contrast ? Comparison: None ? Findings: ?? The heart is enlarged with bzej-gr-imamyjrn coronary calcium. No ?? pericardial effusion. No [...] DD/ 0514 ? TD/TT: 11/29/24 0514 ? Residential Designer: ? Procedure Note Renato Winter - 11/29/2024 [facility] [address] [place] [address] CT Scan Report Signed Patient: Edie DelgadoMago#: [id number] : 1970Acct:[id number] Age/Sex: 54 / MADM Date: 11/28/24 Loc: HO.ED Attending Dr: Ordering Physician: Trudy Brannon Date of Service: 11/29/24 Procedure(s): CT chest w IV con Accession Number(s): [id number] cc: Trudy Brannon; [facility] Report Number: [id number]: Total DLP = 248.00 mGy-cm CLINICAL HISTORY: infection, aspiraion CT chest with contrast Comparison: None Findings: The heart is enlarged with [id number] coronary calcium. No pericardial effusion. No adenopathy. [...] OV> 11/29/24 0515 DD/ 0514 TD/TT: 11/29/2414 Residential Designer: [facility] External Provider IMG CT PROCEDURES Edited Result - Final * XR Foot 3+ Views Right (11/27/2024 2:55 PM EST) Anatomical Region Laterality Modality Lower Extremities, Foot Right Radiogra phic Imaging 11/27/2024 2:55 PM EST Narrative 11/27/2024 3:52 PM EST ? [place] [facility] ?[address] ?[place] [address] ?XRay Report ? Signed ? Patient: Delgdao,Charbel ?MR#: [id number] ? : 1970 ?Acct:[id number] ? Age/Sex: 54 / M ?ADM Date: 11/27/24 ? Loc: HO.ED ? Attending Dr: ? Ordering Physician: Bautista Gomes DO ?? Date of Service: 11/27/24 ?? Procedure(s): XR foot RT min 3V ?? Accession Number(s): [id number] ? cc: [facility]; Bautista Gomes DO ? EXAMINATION: ?? [...] DD/ 1455 ? TD/TT: 11/27/24 1542 ? Residential Designer: ? Procedure Note Moy, Image - 11/27/[address] [address] XRay Report Signed Patient: Isaias Delgado#: [id number] : 1970Acct:[id number] Age/Sex: 54 / MADM Date: 11/27/24 Loc: HO.ED Attending Dr: Ordering Physician: Bautista Gomes DO Date of Service: 11/27/24 Procedure(s): XR foot RT min 3V Accession Number(s): [id number] cc: [facility]; Bautista Gomes DO EXAMINATION: XR FOOT, [...] 11/27/24 1550 DD/ 1455 TD/TT: 11/27/24 1542 Residential Designer: us [facility] External Provider IMG XR PROCEDURES Final Result * XR Foot 3+ Views Left (11/27/2024 2:55 PM EST) Anatomical Region Laterality Modality Lower Extremities, Foot Left Radiogra phic Imaging 11/27/2024 2:55 PM EST Narrative 11/27/2024 3:58 PM EST ? [facility] ?[address] ?[place] [address] ?XRay Report ? Signed ? Patient: Delgado,Charbel ?MR#: [id number] ? : 1970 ?Acct:[id number] ? Age/Sex: 54 / M ?ADM Date: 01/15/25 ? Loc: HO.ED ? Attending Dr: ? Ordering Physician: Bautista Gomes DO ?? Date of Service: 11/27/24 ?? Procedure(s): XR foot LT min 3V ?? Accession Number(s): [id number] ? cc: [facility]; Bautista Gomes DO ? EXAMINATION: ?? [...] DD/ 1455 ? TD/TT: 11/27/24 1542 ? Residential Designer: ? Procedure Note Mackfrandyfernandopatrick, Image - 11/27/2024 [place] [address] XRay Report Signed Patient: Isaias Delgado#: [id number] : 1970Acct:[id number] Age/Sex: 54 / MADM Date: 11/27/24 Loc: HO.ED Attending Dr: Ordering Physician: Bautista Gomes DO Date of Service: 11/27/24 Procedure(s): XR foot LT min 3V Accession Number(s): [id number] cc: [facility]; Bautista Gomes DO EXAMINATION: XR FOOT, [...] 11/27/24 1555 DD/ 1455 TD/TT: 11/27/24 1542 Residential Designer: us [facility] External Provider IMG XR PROCEDURES Final Result * XR Ankle 3+ Views Right (11/27/2024 2:55 PM EST) Anatomical Region Laterality Modality Lower Extremities, Ankle Right Radiogr aphic Imaging 11/27/2024 2:55 PM EST Narrative 11/27/2024 3:55 PM EST ? [facility] ?[address] ?[place] [address] ?XRay Report ? Signed ? Patient: Charbel Delgado ?MR#: [id number] ? : 1970 ?Acct:[id number] ? Age/Sex: 54 / M ?ADM Date: 11/27/24 ? Loc: HO.ED ? Attending Dr: ? Ordering Physician: Bautista Gomes DO ?? Date of Service: 11/27/24 ?? Procedure(s): XR ankle RT min 3V ?? Accession Number(s): [id number] ? cc: [facility]; Bautista Gomes DO ? EXAMINATION: ?? [...] DD/ 1455 ? TD/TT: 11/27/24 1542 ? Residential Designer: ? Procedure Note Donlibradoter, Image - 11/27/[address] [address] XRay Report Signed Patient: Isaias Delgado#: [id number] : 1970Acct:[id number] Age/Sex: 54 / MADM Date: 11/27/24 Loc: .ED Attending Dr: Ordering Physician: Bautista Gomes DO Date of Service: 11/27/24 Procedure(s): XR ankle RT min 3V Accession Number(s): [id number] cc: [facility]; Bautista Gomes DO EXAMINATION: XR ANKLE, [...] 11/27/24 1552 DD/ 1455 TD/TT: 11/27/24 1542 Residential Designer: us [facility] External Provider IMG XR PROCEDURES Final Result * XR Ankle 3+ Views Left (11/27/2024 2:55 PM EST) Anatomical Region Laterality Modality Lower Extremities, Ankle Left Radiogr aphic Imaging 11/27/2024 2:55 PM EST Narrative 11/27/2024 3:56 PM EST ? [facility] ?[address] ?[place] [address] ?XRay Report ? Signed ? Patient: Delgado,Charbel ?MR#: [id number] ? : 1970 ?Acct:[id number] ? Age/Sex: 54 / M ?ADM Date: 11/27/24 ? Loc: HO.ED ? Attending Dr: ? Ordering Physician: Bautista Gomes DO ?? Date of Service: 11/27/24 ?? Procedure(s): XR ankle LT min 3V ?? Accession Number(s): [id number] ? cc: [facility]; Bautista Gomes DO ? EXAMINATION: ?? [...] DD/ 1455 ? TD/TT: 11/27/24 1542 ? Residential Designer: ? Procedure Note Moy, Image - 11/27/2024 [facility] [address] [place] [address] XRay Report Signed Patient: Rod DelgadoGeraldine#: [id number] : 1970Acct:[id number] Age/Sex: 54 / MADM Date: 11/27/24 Loc: HO.ED Attending Dr: Ordering Physician: Bautista Gomes DO Date of Service: 11/27/24 Procedure(s): XR ankle LT min 3V Accession Number(s): [id number] cc: [facility]; Bautista Gomes DO EXAMINATION: XR ANKLE, [...] 11/27/24 1553 DD/ 1455 TD/TT: 11/27/24 1542 Residential Designer: [facility] External Provider IMG XR PROCEDURES Final Result * CT Cervical Spine w/o Contrast (11/20/2024 4:25 PM EST) Anatomical Region Laterality Modality Spine, C-spine Computed Tomogra phy 11/20/2024 4:25 PM EST Narrative 11/20/2024 4:27 PM EST ? [facility] ?[address] ?[place] [address] ? CT Scan Report ? Signed ? Patient: Delgado,Charbel ?MR#: [id number] ? : 1970 ?Acct:[id number] ? Age/Sex: 54 / M ?ADM Date: //25 ? Loc: HO.ED ? Attending Dr: ? Ordering Physician: Crystal Olsen MD ?? Date of Service: 11/20/24 ?? Procedure(s): CT cervical spine wo IV con ?? Accession Number(s): [id number] ? cc: Crystal Olsen MD; [facility] ? Report Number: ?? [id number]: Total DLP = ??281.00 mGy-cm ? CLINICAL [...] DD/ 1625 ? TD/TT: 11/20/24 1625 ? Residential Designer: ? Procedure Note Donlibradoter, Image - 11/20/[address] [place] [address] [address] Scan Report Signed Patient: Isaias Delgado#: [id number] : 1970Acct:[id number] Age/Sex: 54 / MADM Date: 11/20/24 Loc: HO.ED Attending Dr: Ordering Physician: Crystal Olsen MD Date of Service: 11/20/24 Procedure(s): CT cervical spine wo IV con Accession Number(s): [id number] cc: Crystal Olsen MD; [facility] Report Number: [id number]: Total DLP = 281.00 mGy-cm CLINICAL HISTORY: [...] 11/20/24 1626 DD/ 1625 TD/TT: 11/20/24 1625 Residential Designer: [facility] External Provider IMG CT PROCEDURES Edited Result - Final from Last [address] [place] [address] [place] [address] [employer]
--- OUTSIDE RECORDS SUMMARY | 2025-02-18 20:42 | XMS_ITS | Encounter Summary ---
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 CHW introducing herself from [facility] CM Department with CHW's name, department and direct contact [phone] requesting call back. Will re-attempt to contact within 5 days. and address not confirmed. documented in this encounter Plan of Treatment Upcoming Encounters Date Type Department Care Team (Late st Contact Info) Description 05/02/2025 10:00 AM EDT Office Visit [facility] [address] [place] [address] [phone] Misti Murry MD [address] [place], [place] [phone] documented as of this encounter Visit Diagnoses Not on filedocumented in this encounter
[2025-02-18 20:48] VITALS: BP 101/51; PULSE 76; RESP 16; TEMP 36.4; O2SAT 92
--- NOTE | 2025-02-18 21:21 | PC.NURSE ---
Pt O2 sat 87% RA. 2L NC administered with O2 improvement to 95%. Pt tolerating well.
[2025-02-18 21:51] LABS: Imm Gran Abs Auto 0.01 X10*3/uL (0.00-0.03); Imm Gran Pct Auto 0.3 % (0.0-0.4); MANUAL DIFF FLAG SCAN; PLT CLUMP 1; SCAN SMEAR FLAG 1
[2025-02-18 21:53] LABS: Basophils Percent Auto 0.9 % (0-2); Eosinophils Absolute Auto 0.1 X10*3/uL (0.0-0.4); Eosinophils Percent Auto 1.7 % (0-4); Hematocrit 25.8 % (42.0-52.0); Hemoglobin 8.4 g/dl (14.0-18.0); Lymphocytes Absolute Auto 0.8 X10*3/uL (1.2-4.9); Lymphocytes Percent Auto 21.8 % (20-40); Mean Corpuscular HGB Conc 32.6 g/dl (31.0-36.0); Mean Corpuscular Hemoglobin 30.1 pg (27.0-33.0); Mean Corpuscular Volume 92.5 fL (80.0-98.0); Monocytes Absolute Auto 0.4 X10*3/uL (0.1-1.2); Monocytes Percent Auto 10.5 % (2-11); Neutrophils Absolute Auto 2.2 x10*3/uL (2.0-8.3); Neutrophils Percent Auto 64.8 % (45-73); Red Blood Count 2.79 X10*6/uL (4.60-5.80); Red Cell Distribution Width 14.5 % (11.0-16.0)
[2025-02-18 22:01] LABS: Platelet Count 62 X10*3/uL (160-400); White Blood Count 3.4 X10*3/uL (4.8-10.8)
[2025-02-18 22:08] LABS: Alanine Aminotransferase < 6 U/L (0-40); Albumin Level 3.8 g/dL (3.5-5.0); Alkaline Phosphatase 90 U/L (39-117); Anion Gap 12 (12-20); Aspartate Amino Transferase 24 U/L (5-37); Bilirubin Total 0.3 mg/dL (0.0-1.0); Blood Urea Nitrogen 19 mg/dL (9-16); Calcium 9.2 mg/dL (8.4-10.2); Carbon Dioxide 16 mmol/L (22-29); Chloride 111 mmol/L (96-108); Creatinine Clr Calc Pharmacy 57.2; Estimated Glomerular Filt Rate > 60; Glucose Random 98 mg/dL (60-115); Lipase 17 U/L (8-78); Potassium 4.1 mmol/L (3.3-5.1); Sodium 135 mmol/L (135-145); Total Protein 7.9 g/dL (6.5-8.0)
[2025-02-18 22:11] LABS: B Type Natriuretic Peptide 84 pg/mL (<100)
[2025-02-18 22:21] LABS: SLIDE REVIEW VERIFIED
[2025-02-18 22:27] LABS: Influenza A PCR NEGATIVE (Negative); Influenza B PCR NEGATIVE (Negative); Resp Syncy Virus RNA Qual PCR NEGATIVE (Negative); SARS COV2 PCR INHOUSE NEGATIVE (Negative)
[2025-02-18 22:31] VITALS: BP 106/47; PULSE 84; RESP 14; O2SAT 93
[2025-02-19 02:03] VITALS: PULSE 82; O2SAT 95
--- NOTE | 2025-02-19 03:01 | ED_ITS ---
HPI - Alcohol General Chief Complaint: ETOH/Substance Use Stated Complaint: si, etoh Time Seen by Provider: 02/19/25 04:33 Source: patient and EMS Mode of arrival: EMS Limitations: no limitations History of Present Illness ED Provider: DR. Goldsmith HPI narrative: 55-year-old homeless male with history of extensive alcohol use disorder and liver cirrhosis with frequent ED visits for alcoholism brought in by EMS today for evaluation of alcohol intoxication and making SI statements, patient in the ED denies SI or HI bilateral shoulder and feet pain. No trauma, no fall, no head injury, usually patient asleep tonight in the emergency department then walk out in the morning when he is sober. Multiple hospitalization and history of leaving the hospital for AMA. Will check labs and x-rays make sure there is no acute medical condition. Related Data Home Medications ?Medication ?Instructions ?Recorded ?Confirmed lactulose 10 gram/15 mL oral 30 ml PO TID 02/01/25 02/15/25 solution omeprazole 40 mg capsule,delayed 40 mg PO DAILY@0630 02/01/25 02/15/25 release Previous Rx's ?Medication ?Instructions ?Recorded acetaminophen 325 mg tablet 975 mg (3 x 325 mg) PO Q6H PRN 12/17/24 Pain, Mild 1-3,Fever,Headache #30 tabs magnesium oxide 400 mg (241.3 mg 400 mg PO DAILY #30 tabs 12/17/24 magnesium) tablet sodium chloride 0.65 % nasal spray 1 spray intranasal Q1H PRN Dryness 12/17/24 aerosol (Deep Sea Nasal) #44 mL sucralfate 1 gram tablet (Carafate) 1 g PO BID #60 tabs 12/17/24 folic acid 1 mg tablet 1 mg PO DAILY #90 tabs 02/04/25 thiamine mononitrate (vit B1) 100 100 mg PO DAILY #90 tabs 02/04/25 mg tablet spironolactone 25 mg tablet 25 mg PO DAILY #90 tabs 02/13/25 levofloxacin 750 mg tablet 750 mg PO Q24H #7 tabs 02/18/25 Allergies Allergy/AdvReac Type Severity Reaction Status Date / Time No Known Allergies Allergy Verified 02/18/25 20:32 [No Known Allergies*] Review of Systems 2 Review of Systems: Yes all other systems are reviewed and are negative PMFSH Past Medical History Medical History Acute hypoxemic respiratory failure Anemia Alcohol use disorder Pneumonia Alcohol withdrawal syndrome Pancytopenia Alcohol abuse Thrombocytopenia Esophageal varices Acute on chronic anemia Alcoholic liver disease Aspiration pneumonia Thrombocytopenia Malnutrition CHF (congestive heart failure) Anemia Hypomagnesemia Cirrhosis Thrombocytopenia Acute on chronic anemia CHF (congestive heart failure) Anemia Alcohol abuse Surgical History No history of previous surgery Social History Social History Household Members: Other Household Members Other:: homeless Housing: Homeless Housing Other:: Homeless fpc Do you presently have visiting nurse or other home services: No Unable to assess alcohol history related to: Refusing to respond Alcohol intake: current Alcohol intake frequency: 3 or more drinks per day Alcohol type: beer and hard liquor Comment: 1 assist to bathroom Patient Tobacco Use Status: Former Tobacco user Tobacco use type: Cigarette Second Hand Smoke Exposure: No Advance Directives Date on File: 07/03/23 service: No Physical Exam ED Vital Signs: Vital Signs - 24 hr 02/18/25 20:48 02/18/25 22:31 02/19/25 02:03 Temperature 97.6 F Pulse Rate 76 84 82 Respiratory Rate 16 14 Blood Pressure 101/51 L 106/47 L Pulse Oximetry 92 93 95 Oxygen Delivery Method Room Air Nasal Cannula Nasal Cannula Oxygen Flow Rate 1 1 02/19/25 03:11 02/19/25 03:53 02/19/25 06:47 Temperature 98.4 F 98.4 F Pulse Rate 83 83 Respiratory Rate 16 16 Blood Pressure 92/46 L 92/46 L Pulse Oximetry 92 100 92 Oxygen Delivery Method Nasal Cannula Nasal Cannula Oxygen Flow Rate 1 1 BMI result Body Mass Index 19.4 Vital signs have been reviewed and appear to be correct. Blood pressure elevated. Heart rate normal. Respiratory rate normal. Temperature normal. Oxygen saturation normal. Appearance: Alert. Oriented X3. No acute distress. Head: Normal external exam. Normocephalic. Atraumatic. No [place] signs noted. No raccoon eyes noted Eyes: PERRLA. EOMI. Conjunctiva and sclera normal. Eyelids normal. ENT: TM's Normal. Pharynx normal. Uvula midline. Moist mucous membranes. No trismus noted. No drooling noted. No muffled voice noted. Neck: Normal inspection. Neck supple. FROM. No adenopathy. Thyroid Normal. No meningeal signs. No neck mass noted. CVS: Normal heart rate and rhythm. Heart sound normal. No murmurs noted. Pulses normal throughout. Respiratory: No respiratory distress. Painless inspiration. Breath sounds normal. No wheezes/rales/rhonchi noted. Chest nontender. No accessory muscle usage noted or decreased air movement noted. Abdomen: Soft and nontender. Bowel sounds normal in all 4 quadrants. No distention noted. No organomegaly noted. No visible injury noted. Back: No CVA tenderness. Full range of motion noted. Skin: Skin warm and dry. Normal skin color. Normal skin turgor. No rashes/lesions/lacerations noted. Extremities: No lower extremity edema. Extremities exhibit normal range of motion. Extremities nontender. Neuro: Oriented X 3. Cranial nerve exam: II-XII are grossly intact No motor deficit. No sensory deficit. Reflexes normal. Course Reevaluation(s) Reevaluation #1: Patient slept overnight, now he is more sober, declined SI or HI, patient want to be discharged home. Time: 06:30 Medical Decision Making Differential Diagnosis Differential Diagnoses: The differential diagnosis associated with the presentation includes (Electrolyte derangement, alcohol intoxication, severe anemia, hypoxia, pneumonia, pneumothorax.) Admission/Observation Consideration of admission/observation: Escalation of care including admission/observation considered Lab Data MDM Lab Attestation statement: I reviewed the patient's lab results. 02/18/25 21:36 02/18/25 21:36 Labs: Lab Results 02/18/25 Range/Units 21:36 WBC 3.4 L (4.8-10.8) X10*3/uL RBC 2.79 L (4.60-5.80) X10*6/uL Hgb 8.4 L (14.0-18.0) g/dl Hct 25.8 L (42.0-52.0) % MCV 92.5 (80.0-98.0) fL MCH 30.1 (27.0-33.0) pg MCHC 32.6 (31.0-36.0) g/dl RDW 14.5 (11.0-16.0) % Plt Count 62 L (160-400) X10*3/uL MPV 11.0 (9.4-12.4) fL Immature Gran % (Auto) 0.3 (0.0-0.4) % Neut % (Auto) 64.8 (45-73) % Lymph % (Auto) 21.8 (20-40) % [place] % (Auto) 10.5 (2-11) % Eos % (Auto) 1.7 (0-4) % Baso % (Auto) 0.9 (0-2) % Lymph # (Auto) 0.8 L (1.2-4.9) X10*3/uL [place] # (Auto) 0.4 (0.1-1.2) X10*3/uL Eos # (Auto) 0.1 (0.0-0.4) X10*3/uL Baso # (Auto) 0.0 (0.0-0.2) X10*3/uL Abs Immat Gran (auto) 0.01 (0.00-0.03) X10*3/uL Absolute Neuts (auto) 2.2 (2.0-8.3) x10*3/uL Absolute Nucleated RBC 0.000 (0.0-0.012) X10*3/uL Nucleated RBC % (auto) 0.0 (0.0-0.2) /100WBC Smear Tech's Comments VERIFIED Sodium 135 (135-145) mmol/L Potassium 4.1 (3.3-5.1) mmol/L Chloride 111 H (96-108) mmol/L Carbon Dioxide 16 L (22-29) mmol/L Anion Gap 12 (12-20) BUN 19 H (9-16) mg/dL Creatinine 1.11 (0.5-1.4) mg/dL Estim Creat Clear Calc 57.2 Estimated GFR > 60 Random Glucose 98 (60-115) mg/dL Calcium 9.2 D (8.4-10.2) mg/dL Total Bilirubin 0.3 (0.0-1.0) mg/dL AST 24 (5-37) U/L ALT < 6 (0-40) U/L Alkaline Phosphatase 90 (39-117) U/L B-Natriuretic Peptide 84 (<100) pg/mL Total Protein 7.9 (6.5-8.0) g/dL Albumin 3.8 (3.5-5.0) g/dL Lipase 17 (8-78) U/L Influenza Type A (PCR) NEGATIVE (Negative) Influenza Type B (PCR) NEGATIVE (Negative) RSV RNA Qual (PCR) NEGATIVE (Negative) SARS-CoV-2 RNA (RT-PCR) NEGATIVE (Negative) Independent Interpretation I performed an independent interpretation of an: Plain X-Ray (Chest:. No acute infiltrate or pleural effusion. 2. Cardiomegaly is suspected.) Radiology Impression Discussion of test interpretation with radiology: I have reviewed the radiologist's reading. Chronic Conditions Patient?s care impacted by: Other (Chronic alcohol use disorder.) Social Determinants Patient?s care significantly limited by Social Determinants of Health including: Inadequate housing and Alcoholism and drug addiction in family Discharge Plan Discharge Clinical Impression: Alcohol intoxication Patient Disposition: Home, Self-Care Instructions: Alcohol Withdrawal (ED) Prescriptions: No Action sucralfate [Carafate] 1 gram tablet 1 g PO BID Qty: 60 0RF acetaminophen 325 mg Tablet 975 mg PO Q6H PRN (Reason: Pain, Mild 1-3,Fever,Headache) Qty: 30 0RF magnesium oxide 400 mg (241.3 mg magnesium) Tablet 400 mg PO DAILY Qty: 30 0RF Deep Sea Nasal 0.65 % Aerosol,[place] 1 spray intranasal Q1H PRN (Reason: Dryness) Qty: 44 0RF spironolactone 25 mg tablet 25 mg PO DAILY Qty: 90 0RF levofloxacin 750 mg Tablet 750 mg PO Q24H Qty: 7 0RF lactulose 10 gram/15 mL solution 30 ml PO TID omeprazole 40 mg capsule,delayed release(DR/EC) 40 mg PO DAILY@0630 folic acid 1 mg Tablet 1 mg PO DAILY Qty: 90 0RF thiamine mononitrate (vit B1) 100 mg Tablet 100 mg PO DAILY Qty: 90 0RF Interventions: ED Discharge Assessment Last Done: 02/19/25 06:47 Discharge Date/Time: 02/19/25 06:48 Print Language: Guinean
[2025-02-19 03:11] VITALS: BP 92/46; PULSE 83; RESP 16; TEMP 36.9; O2SAT 92
[2025-02-19 03:53] VITALS: O2SAT 100
--- NOTE | 2025-02-19 06:40 | PC.NURSE ---
Pt ambulates to the bathroom with a steady gait.
[2025-02-19 06:47] VITALS: BP 92/46; PULSE 83; RESP 16; TEMP 36.9; O2SAT 92
== END 2025-02-19 06:48 | disposition home or self-care (01) ==
PROVIDERS: Emergency Provider Emergency Medicine
DX: F10.120 Alcohol abuse with intoxication, uncomplicated (principal); Y90.9 Presence of alcohol in blood, level not specified; R45.851 Suicidal ideations; J96.01 Acute respiratory failure with hypoxia; Z79.899 Other long term (current) drug therapy; Z03.818 Encounter for observation for suspected exposure to other biological agents ruled out
CPT/HCPCS: 0241U; 36415; 71045; 80053; 83690; 83880; 85025; 99284

== ENCOUNTER → 2025-02-18 21:40 | Outpatient (BNV) | payer MEDICAID, SELFPAY | PROVIDERS: Visit Provider Radiology Diagnostic Radiology | DX: R09.02 Hypoxemia (principal); I51.7 Cardiomegaly | CPT/HCPCS: 71045 ==

== ENCOUNTER 2025-02-21 00:11 | Emergency (ER) | payer MEDICAID, SELFPAY ==
[2025-02-21 00:20] VITALS: BP 132/84; PULSE 100; RESP 16; TEMP 36.4; O2SAT 94; BMI 19.4
--- OUTSIDE RECORDS SUMMARY | 2025-02-21 06:23 | XMS_ITS ---
Author Organization [employer] [facility] Address [address] [place] [id number] Care Team Providers Care Broke Man Name Role Phone Unavailable Primary Care Provider Unavailabl e CM Complex Status:Outreach In Progress (Enrolling) Start date:02/05/2025 Enrollment reason:ADT Feed Overview ED- Pt went to [facility] ED on 02/04/25. Case Team Name Relationship Phone Missy Milner RN Registered Nurse(Responsible S taff) Continued Care and Services Coordination
--- OUTSIDE RECORDS SUMMARY | 2025-02-21 06:23 | XMS_ITS | Clinical Summary ---
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 [address] [place] [address] Missy Milner RN 02/13/2025 Patient Outreach [address] [address] Misti Murry MD Care Coordination (Outreach) 02/11/2025 Orders Only [facility] External Provider, [facility] 02/10/2025 Orders Only GENERIC EXTERNAL DATA DEPARTMENT Provider, Generic External Data 02/08/2025 Orders Only GENERIC EXTERNAL DATA DEPARTMENT Provider, Generic External Data 02/07/2025 Orders Only GENERIC EXTERNAL DATA DEPARTMENT Provider, Generic External Data 02/07/2025 Patient Outreach [address] [address] Misti Murry MD Care Coordination (C3/CM Outreach) 02/06/2025 Orders Only GENERIC EXTERNAL DATA DEPARTMENT Provider, Generic External Data 02/05/2025 Patient Outreach [address] [address] Santosh Daley MD Care Coordination (C3/CM Chart Review) 02/05/[address] [facility] [address] [place] [address] Missy Milner, LAURA Care Coordination (C3CM chart review) 02/05/2025 Patient Outreach [address] [address] Santosh Daley MD 01/31/2025 Orders Only GENERIC EXTERNAL DATA DEPARTMENT Provider, Generic External Data 01/30/2025 Orders Only GENERIC CTC DEPARTMENT [facility] 01/24/[address] [facility] [address] [place] [address] Santosh Daley MD Care Coordination (Outreach) 01/24/2025 Population Health Risk Score [facility] () Department [address] [place] [phone] Provider, Population Health Generic 01/14/[address] [facility] [address] [place] [address] Santosh Daley MD Care Coordination (Outreach) 01/06/[address] [facility] [address] [place] [address] Santosh Daley MD Care Coordination (Outreach) 12/26/[address] [facility] [address] [place] [address] Santosh Daley MD Care Coordination (Outreach) 11/29/2024 Orders Only GENERIC EXTERNAL DATA DEPARTMENT Provider, Generic External Data 11/28/2024 Orders Only [facility] External Provider, [facility] 11/27/2024 Orders Only GENERIC EXTERNAL DATA DEPARTMENT Provider, Generic External Data from Last 3 Months Immunizations Name Administration Dates Next Due [employer] SARS-CoV-2 Vaccination 04/28/2021 Pfizer Covid-19 Vaccine 12+ [...] Upcoming Encounters Date Type Department Care Team ([facility] st Contact Info) Description 05/02/2025 10:00 AM EDT Office Visit [facility] [address] [place] [address] Misti Murry MD [address] [place] [phone] Health Maintenance Due Date Last Done Comments [...] 3+ VIEWS RIGHT Routine 2:55 PM EST from Last 3 Months Results * XR Chest 1 View (02/11/2025 11:05 AM EDT) Anatomical Region Laterality Modality Chest Radiographic Lamar ging 02/11/2025 11:0 5 AM EDT Narrative 02/11/2025 11:19 AM EDT ? [facility] ?[address] ?[place] [address] ?XRay Report ? Signed ? Patient: Charbel Delgado ?MR#: [id number] ? : 1970 ?Acct:[id number] ? Age/Sex: 55 / M ?ADM Date: 02/11/25 ? Loc: HO.S3 ?370-1 ? Attending Dr: Rolan Baker MD ? Ordering Physician: Rolan Baker MD ?? Date of Service: 02/11/25 ?? Procedure(s): XR chest 1V ?? Accession Number(s): [id number] ? cc: [facility]; Rolan Baker MD ? EXAMINATION: ??XR CHEST [...] DD/ 1105 ? TD/TT: 02/11/25 1111 ? Crew Car Driver: ? Procedure Note Donotfernandointerpreter, Image - 02/11/[address] [address] XRay Report Signed Patient: Isaias Delgado#: [id number] : 1970Acct:[id number] Age/Sex: 55 / MADM Date: 02/11/25 Loc: .S3 370-[address]: Rolan Baker MD Ordering Physician: Rolan Baker MD Date of Service: 02/11/25 Procedure(s): XR chest 1V Accession Number(s): [id number] cc: [facility]; Rolan Baker MD EXAMINATION: XR CHEST 1 [...] 02/11/25 1116 DD/ 1105 TD/TT: 02/11/25 1111 Crew Car Driver: [facility] External Provider IMG XR PROCEDURES Final Result * Ethanol (02/10/2025 11:37 PM EDT) Only the most recent of7 resultswithin the time period is included. ETHANOL (MG/DL) IN SER/PLAS 213 mg/dL [facility] Comment:Serum/plasma ethanol results are to be used formedical/treatment purposes only. 02/10/2025 11:3 7 PM EDT 02/10/2025 11:43 PM EDT Generic External Data Provider LAB BLOOD ORDERAB LES Final Result [facility] [address] [place] [phone] * (ABNORMAL) CBC auto differential (02/10/2025 11:37 PM EDT) Only the most recent of9 resultswithin the time period is included. White Blood Count 3.5(L) 4.8 - 10.8 X10*3/uL [facility] Red Blood Count 2.32(L) 4.60 - 5.80 X10*6/uL [facility] Hemoglobin 7.2(L) 14.0 - 18.0 g/dl [facility] Hematocrit 22.0(L) 42.0 - 52.0 % [facility] Mean Corpuscular Volume 94.8 80.0 - 98.0 fL [facility] Mean Corpuscular Hemoglobin 31.0 27.0 - 33.0 pg [facility] Mean Corpuscular HGB Conc 32.7 31.0 - 36.0 g/dl [facility] Red Cell Distribution Width 14.6 11.0 - 16.0 % [facility] Platelet Count 53(L) 160 - 400 X10*3/uL [facility] Mean Platelet Volume 11.0 9.4 - 12.4 fL [facility] Neutrophils Percent Auto 55.6 45 - 73 % [facility] Imm Gran Pct Auto 0.3 0.0 - 0.4 % [facility] Lymphocytes Percent Auto 29.1 20 - 40 % [facility] Monocytes Percent Auto 9.6 2 - 11 % [facility] Eosinophils Percent Auto 4.8(H) 0 - 4 % [facility] Basophils Percent Auto 0.6 0 - 2 % [facility] NRBC Pct Auto 0.0 0.0 - 0.2 /100WBC [facility] Neutrophils Absolute Auto 2.0 2.0 - 8.3 x10*3/uL [facility] Imm Gran Abs Auto 0.01 0.00 - 0.03 X10*3/uL [facility] Lymphocytes Absolute Auto 1.0(L) 1.2 - 4.9 X10*3/uL [facility] Monocytes Absolute Auto 0.3 0.1 - 1.2 X10*3/uL [facility] Eosinophils Absolute Auto 0.2 0.0 - 0.4 X10*3/uL [facility] Basophils Absolute Auto 0.0 0.0 - 0.2 X10*3/uL [facility] NRBC Abs Auto 0.000 0.0 - 0.012 X10*3/uL [facility] 02/10/2025 11:3 7 PM EDT 02/10/2025 11:43 PM EDT us Generic External Data Provider LAB BLOOD ORDERAB LES Final Result [facility] [address] [place] [phone] [phone] * Magnesium (02/10/2025 11:37 PM EDT) Only the most recent of3 resultswithin the time period is included. Magnesium 1.7 1.6 - 2.6 mg/dL [facility] 02/10/2025 11:3 7 PM EDT 02/10/2025 11:43 PM EDT us Generic External Data Provider LAB BLOOD ORDERAB LES Final Result [facility] [address] [place] [phone] * (ABNORMAL) Comprehensive Metabolic Panel (02/10/2025 11:37 PM EDT) Only the most recent of7 resultswithin the time period is included. Sodium 137 135 - 145 mmol/L [facility] Potassium 3.9 3.3 - 5.1 mmol/L [facility] Chloride 112(H) 96 - 108 mmol/L [facility] Carbon Dioxide 16(L) 22 - 29 mmol/L [facility] Anion Gap 13 12 - 20 [facility] Urea Nitrogen (BUN) 10 9 - 16 mg/dL [facility] Creatinine, Serum 0.72 0.5 - 1.4 mg/dL [facility] Creatinine Clr Calc Pharmacy 99.6 [facility] Comment:eGFR (calculated fro m the MDRD study equation) and eCrCl(calculated from the Cockcroft-Gault equation) are based ondifferent parameters and may not yield comparable results.If eCrCl result is absurd, please check patient'sheight/weight. Estimated Glomerular Filt Rate >60 [facility] Comment:Chronic Kidney Disea se: Estimated GFR < 60 mL/min/1.98z7Oeqwnp Kidney Disease: Estimated GFR < 15 mL/min/1.73m2 Glucose 92 60 - 115 mg/dL [facility] Calcium 8.5 8.4 - 10.2 mg/dL [facility] Bilirubin, Total 0.4 0.0 - 1.0 mg/dL [facility] Aspartate Amino Transferase 26 5 - 37 U/L [facility] Alanine Aminotransferase <6 0 - 40 U/L [facility] Total Protein 6.8 6.5 - 8.0 g/dL [facility] Albumin Level 3.2(L) 3.5 - 5.0 g/dL [facility] Alkaline Phosphatase 83 39 - 117 U/L [facility] 02/10/2025 11:3 7 PM EDT 02/10/2025 11:43 PM EDT us Generic External Data Provider LAB BLOOD ORDERAB LES Final Result Performing Organization Address [facility] Co de Phone Number [facility] [address] [place] [phone] * (ABNORMAL) VENOUS BLOOD GAS (02/08/2025 6:41 PM EDT) Only the most recent of2 resultswithin the time period is included. VBG pH 7.45(H) 7.32 - 7.43 [facility] Comment:METER #: [id number] additional_comment: Cb nsl VBG PCO2 31 mmHg [facility] Comment:METER #: [id number] additional_comment: Cb nsl VBG PO2 43 mmHg [facility] Comment:METER #: [id number] additional_comment: Cb nsl VBG Base Excess -1.0 mmol/L [facility] Comment:METER #: [id number] additional_comment: Cb nsl VBG HCO3 22 22 - 26 mmol/L [facility] Comment:METER #: [id number] additional_comment: Cb nsl O2 Sat, Demetrio 66.0 % [facility] Comment:METER #: [id number] additional_comment: Cb nsl 02/08/2025 6:41 PM EDT 02/08/2025 6:44 PM EDT us Generic External Data Provider LAB BLOOD ORDERAB LES Final Result Performing Organization Address [facility] Co de Phone Number [facility] [address] [place] [phone] * (ABNORMAL) Lactic Acid (02/08/2025 6:30 PM EDT) Only the most recent of2 resultswithin the time period is included. Lactic Acid 2.9(HH) 0.5 - 2.0 mmol/L [facility] Comment:Critical value for t est(s): LACTIC Results called to gildardo back by: PRACHI Person calling: JENNIE Date: 02/08/25Time: 1858 02/08/2025 6:30 PM EDT 02/08/2025 6:37 PM EDT us Generic External Data Provider LAB BLOOD ORDERAB LES Final Result [facility] [address] [place] [phone] * CTA Chest PE Protocal (02/08/2025 4:12 AM EDT) Anatomical Region Laterality Modality Body, Chest Computed Tomogra phy 02/08/2025 4:12 AM EDT Narrative 02/08/2025 4:15 AM EDT ? [facility] ?[address] ?[place] [address] ? CT Scan Report ? Signed ? Patient: Charbel Delgado ?MR#: [id number] ? : 1970 ?Acct:[id number] ? Age/Sex: 55 / M ?ADM Date: 02/07/25 ? Loc: HO.ED ? Attending Dr: ? Ordering Physician: Alexandria Sweeney MD ?? Date of Service: 02/08/25 ?? Procedure(s): CT angio chest PE protocol ?? Accession Number(s): [id number] ? cc: [facility]; Alexandria Sweeney MD ? Report Number: ?? [id number]: Total DLP = ??260.00 mGy-cm ? CLINICAL [...] DD/ 0412 ? TD/TT: 02/08/25 0412 ? Crew Car Driver: ? Procedure Note Moy, Image - 02/08/[address] [place] [address] [address] Scan Report Signed Patient: Isaias Delgado#: [id number] : 1970Acct:[id number] Age/Sex: 55 / MADM Date: 02/07/25 Loc: HO.ED Attending Dr: Ordering Physician: Alexandria Sweeney MD Date of Service: 02/08/25 Procedure(s): CT angio chest PE protocol Accession Number(s): [id number] cc: [facility]; Alexandria Sweeney MD Report Number: [id number]: Total DLP = 260.00 mGy-cm CLINICAL HISTORY: [...] signed by: Randal Mendoza MD on 02/08/2025 04:12:55 Dictated By: Randal Mendoza MD Signed By: <Electronically signed by Randal Mendoza MD in OV> 02/08/[address] DD/ 1 TD/TT: 02/08/[address] Crew Car Driver: [facility] External Provider IMG CT PROCEDURES Edited Result - Final * CT Head w/o Contrast (02/08/2025 4:05 AM EDT) Only the most recent of2 resultswithin the time period is included. Anatomical Region Laterality Modality Head, Neck Computed Tomogra phy 02/08/2025 4:05 AM EDT Narrative 02/08/2025 4:07 AM EDT ? [facility] ?[address] ?[place] [address] ? CT Scan Report ? Signed ? Patient: Delgado,Charbel ?MR#: [id number] ? : 1970 ?Acct:[id number] ? Age/Sex: 55 / M ?ADM Date: 03/28/25 ? Loc: HO.ED ? Attending Dr: ? Ordering Physician: Alexandria Sweeney MD ?? Date of Service: 02/08/25 ?? Procedure(s): CT head/brain wo IV con ?? Accession Number(s): [id number] ? cc: [facility]; Alexandria Sweeney MD ? Report Number: ?? [id number]: Total DLP = ??618.00 mGy-cm ? CLINICAL [...] DD/ 0405 ? TD/TT: 02/08/25 0405 ? Crew Car Driver: ? Procedure Note Moy, Renato - 02/08/[address] [place] [address] [address] Scan Report Signed Patient: Isaias Delgado#: [id number] : 1970Acct:[id number] Age/Sex: 55 / MADM Date: 02/07/25 Loc: HO.ED Attending Dr: Ordering Physician: Alexandria Sweeney MD Date of Service: 02/08/25 Procedure(s): CT head/brain wo IV con Accession Number(s): [id number] cc: [facility]; Alexandria Sweeney MD Report Number: [id number]: Total DLP = 618.00 mGy-cm CLINICAL HISTORY: [...] in OV> 02/08/25405 DD/ 4 TD/TT: 02/08/25404 Crew Car Driver: [facility] External Provider IMG CT PROCEDURES Edited Result - Final * (ABNORMAL) Drug Monitoring, Panel 1, Screen, Urine (02/08/2025 2:29 AM EDT) Opiate Screen Urine Not Detected Not Detect [facility] Comment:Opiate cut-off is 30 0 ng/mL.Positive results are unconfirmed and should not be used fornon-medical purposes. Barbiturates, Urine POSITIVE(A) Not Detect [facility] Comment:Barbiturate cut-off is 200 ng/mL.Positive results are unconfirmed and should not be used fornon-medical purposes. Phencyclidine Screen Urine Not Detected Not Detect [facility] Comment:Phencyclidine cut-of f is 25 ng/mL.Positive results are unconfirmed and should not be used fornon-medical purposes. Amphetamine Screen Urine Not Detected Not Detect [facility] Comment:Amphetamine cut-off is 1000 ng/mL.Positive results are unconfirmed and should not be used fornon-medical purposes. Benzodiazepines Screen Urine Not Detected Not Detect [facility] Comment:Benzodiazepine cut-o ff is 200 ng/mL.Positive results are unconfirmed and should not be used fornon-medical purposes. Cocaine Screen Urine Not Detected Not Detect [facility] Comment:Cocaine cut-off is 3 00 ng/mL.Positive results are unconfirmed and should not be used fornon-medical purposes. Cannabinoid Screen Urine Not Detected Not Detect [facility] Comment:Cannabinoid cut-off is 50 ng/mL.Positive results are unconfirmed and should not be used fornon-medical purposes. Methadone Screen, Urine Not Detected Not Detect ng/mL [facility] Comment:Methadone cut-off is 300 ng/mL.Positive results are unconfirmed and should not be used fornon-medical purposes. FENTANYL URINE Not Detected Not Detect [facility] Comment:Fentanyl cut-off is 1 ng/mL.Positive results are unconfirmed and should not be used fornon-medical purposes. Oxycodone Urine Screen Not Detected Not Detect ng/mL [facility] Comment:Oxycodone cut-off is 100 ng/mL.Positive results are unconfirmed and should not be used fornon-medical purposes. Buprenorphine Screen Not Detected Not Detect ng/mL [facility] Comment:Buprenorphine cut-of f is 5 ng/mL.Positive results are unconfirmed and should not be used fornon-medical purposes. 02/08/2025 2:29 AM EDT 02/08/2025 2:38 AM EDT Generic External Data Provider LAB URINE ORDERAB LES Final Result Performing Organization Address [facility] Co de Phone Number [facility] [address] [place] [phone] * High Sensitivity Troponin I (02/08/2025 1:52 AM EDT) Pathologist [facility] TROPONIN I HIGH SENSITIVITY <2.7 <3.5 - 35.0 ng/L [facility] Comment:The [place]olly high sens itivity Troponin-I results should beused in conjunction with other diagnostic information suchas ECG, clinical observations and information, and patientsymptoms to aid in the diagnosis of SC. 02/08/2025 1:52 AM EDT 02/08/2025 1:55 AM EDT us Generic External Data Provider LAB BLOOD ORDERAB LES Final Result Performing Organization Address [facility] Co de Phone Number [facility] [address] [place] [phone] * SARS-CoV-2 RNA, Influenza A/B, and RSV RNA, Ql NAAT (02/08/2025 1:52 AM EDT) Only the most recent of2 resultswithin the time period is included. Influenza A PCR NEGATIVE Negative [facility] Influenza B PCR NEGATIVE Negative [facility] Resp Syncy Virus RNA Qual PCR NEGATIVE Negative [facility] SARS COV2 PCR NEGATIVE Negative [facility] Comment:All test results mus t [...] use by authorized laboratories.Testing performed on the [employer] GeneXpert utilizingreal-time RT-PCR.All SARS CoV2 and positive influenza A/B results arereported to [facility]. 02/08/2025 1:52 AM EDT 02/08/2025 1:55 AM EDT Generic External Data Provider LAB MICROBIOLOGY - GENERAL ORDERABLES Final Result [facility] [address] [place] [phone] * (ABNORMAL) Prothrombin Time-INR (02/08/2025 1:52 AM EDT) Only the most recent of2 resultswithin the time period is included. Prothrombin Time 15.3(H) 10.9 - 12.4 SEC [facility] INTERNATIONAL NORM RATIO 1.3(H) 0.9 - 1.1 [facility] Comment:INTERNATIONAL NORMAL IZED RATIO (INR) [...] ORDERAB LES Final Result Performing Organization Address [facility] Phone Number [facility] [address] [place] [phone] * (ABNORMAL) B Type Natriuretic Peptide (BNP) (02/08/2025 1:52 AM EDT) B Type Natriuretic Peptide 147(H) <100 pg/mL [facility] 02/08/2025 1:52 AM EDT 02/08/2025 1:55 AM EDT Generic External Data Provider LAB BLOOD ORDERAB LES Final Result Performing Organization Address [facility] [address] [place] [phone] * (ABNORMAL) Ammonia, Plasma (02/08/2025 1:52 AM EDT) Only the most recent of3 resultswithin the time period is included. Ammonia (P) 65(H) 13 - 55 umol/L [facility] 02/08/2025 1:52 AM EDT 02/08/2025 2:03 AM EDT Generic External Data Provider LAB BLOOD ORDERAB LES Final Result Performing Organization Address [facility] Phone Number [facility] [address] [place] [phone] * Hepatic Function Panel (02/08/2025 1:52 AM EDT) Only the most recent of2 resultswithin the time period is included. Bilirubin, Total 0.4 0.0 - 1.0 mg/dL [facility] Bilirubin, Direct 0.2 0.0 - 0.5 mg/dL [facility] Aspartate Amino Transferase 33 5 - 37 U/L [facility] Alanine Aminotransferase 9 0 - 40 U/L [facility] Total Protein 7.1 6.5 - 8.0 g/dL [facility] Albumin Level 3.5 3.5 - 5.0 g/dL [facility] Alkaline Phosphatase 86 39 - 117 U/L [facility] 02/08/2025 1:52 AM EDT 02/08/2025 1:55 AM EDT us Generic External Data Provider LAB BLOOD ORDERAB LES Final Result [facility] [address] [place] [phone] * (ABNORMAL) Basic Metabolic Panel (02/08/2025 1:52 AM EDT) Only the most recent of2 resultswithin the time period is included. Sodium 140 135 - 145 mmol/L [facility] Potassium 4.0 3.3 - 5.1 mmol/L [facility] Chloride 113(H) 96 - 108 mmol/L [facility] Carbon Dioxide 18(L) 22 - 29 mmol/L [facility] Anion Gap 13 12 - 20 [facility] Urea Nitrogen (BUN) 17(H) 9 - 16 mg/dL [facility] Creatinine, Serum 0.83 0.5 - 1.4 mg/dL [facility] Creatinine Clr Calc Pharmacy 76.5 [facility] Comment:eGFR (calculated fro m the MDRD study equation) and eCrCl(calculated from the Cockcroft-Gault equation) are based ondifferent parameters and may not yield comparable results.If eCrCl result is absurd, please check patient'sheight/weight. Estimated Glomerular Filt Rate >60 [facility] Comment:Chronic Kidney Disea se: Estimated GFR < 60 mL/min/1.25v4Fspnhk Kidney Disease: Estimated GFR < 15 mL/min/1.73m2 Glucose 95 60 - 115 mg/dL [facility] Calcium 8.5 8.4 - 10.2 mg/dL [facility] 02/08/2025 1:52 AM EDT 02/08/2025 1:55 AM EDT us Generic External Data Provider LAB BLOOD ORDERAB LES Final Result Performing Organization Address [facility] Co de Phone Number [facility] [address] [place] [phone] * Lipase (02/06/2025 12:39 AM EDT) Only the most recent of4 resultswithin the time period is included. Lipase 24 8 - 78 U/L [facility] 02/06/2025 12:3 9 AM EDT 02/06/2025 12:45 AM EDT us Generic External Data Provider LAB BLOOD ORDERAB LES Final Result Performing Organization Address [facility] de Phone Number [facility] [address] [place] [phone] * CT Abdomen Pelvis w/ Contrast (11/29/2024 5:14 AM EST) Anatomical Region Laterality Modality Body, Pelvis, Abdomen Computed T omography 11/29/2024 5:14 AM EST Narrative 11/29/2024 5:16 AM EST ? [facility] ?[address] ?[place] [address] ? CT Scan Report ? Signed ? Patient: Delgado,Charbel ?MR#: [id number] ? : 1970 ?Acct:[id number] ? Age/Sex: 54 / M ?ADM Date: 01/16/25 ? Loc: HO.ED ? Attending Dr: ? Ordering Physician: Trudy Brannon ?? Date of Service: 11/29/24 ?? Procedure(s): CT abdomen pelvis w IV con ?? Accession Number(s): [id number] ? cc: Trudy Brannon; [facility] ? Report Number: ?? [id number]: Total DLP = ??512.00 mGy-cm ? CLINICAL [...] DD/ 0514 ? TD/TT: 11/29/24 0514 ? Crew Car Driver: ? Procedure Note Moy, Image - 11/29/[address] [address] [address] Scan Report Signed Patient: Isaias Delgado#: [id number] : 1970Acct:[id number] Age/Sex: 54 / MADM Date: 11/28/24 Loc: HO.ED Attending Dr: Ordering Physician: Trudy Brannon Date of Service: 11/29/24 Procedure(s): CT abdomen pelvis w IV con Accession Number(s): [id number] cc: Trudy Brannon; [facility] Report Number: [id number]: Total DLP = 512.00 mGy-cm CLINICAL HISTORY: [...] document has been electronically signed by: Mary Rogesr MD on 11/29/2024 05:14:13 Dictated By: Mary Rogers MD Signed By: <Electronically signed by Mary Rogers MD in OV> 11/29/24 0515 DD/ 0514 TD/TT: 11/29/24 0514 Crew Car Driver: [facility] [facility] External Provider IMG CT PROCEDURES Edited Result - Final * CT Chest w/ Contrast (11/29/2024 5:14 AM EST) Anatomical Region Laterality Modality Body, Chest Computed Tomogra phy 11/29/2024 5:14 AM EST Narrative 11/29/2024 5:16 AM EST ? [facility] ?[address] ?[place] [address] ? CT Scan Report ? Signed ? Patient: Delgado,Charbel ?MR#: [id number] ? : 1970 ?Acct:[id number] ? Age/Sex: 54 / M ?ADM Date: 01/16/25 ? Loc: HO.ED ? Attending Dr: ? Ordering Physician: Trudy Brannon ?? Date of Service: 11/29/24 ?? Procedure(s): CT chest w IV con ?? Accession Number(s): [id number] ? cc: Trudy Brannon; [facility] ? Report Number: ?? [id number]: Total DLP = ??248.00 mGy-cm ? CLINICAL HISTORY: infection, aspiraion ? CT chest with contrast ? Comparison: None ? Findings: ?? The heart is enlarged with qgou-jz-plikedjw coronary calcium. No ?? pericardial effusion. No [...] DD/ 0514 ? TD/TT: 11/29/24 0514 ? Crew Car Driver: ? Procedure Note Renato Winter - 11/29/[address] [address] [address] Scan Report Signed Patient: Edie DelgadoMago#: [id number] : 1970Acct:[id number] Age/Sex: 54 / MADM Date: 11/28/24 Loc: HO.ED Attending Dr: Ordering Physician: Trudy Brannon Date of Service: 11/29/24 Procedure(s): CT chest w IV con Accession Number(s): [id number] cc: Trudy Brannon; [facility] Report Number: [id number]: Total DLP = 248.00 mGy-cm CLINICAL HISTORY: infection, aspiraion CT chest with contrast Comparison: None Findings: The heart is enlarged with lkil-dz-iaargqlv coronary calcium. No pericardial effusion. No adenopathy. [...] MD in OV> 11/29/24 0515 DD/ TD/TT: 11/29/24 0514 Crew Car Driver: [facility] External Provider IMG CT PROCEDURES Edited Result - Final * XR Foot 3+ Views Right (11/27/2024 2:55 PM EST) Anatomical Region Laterality Modality Lower Extremities, Foot Right Radiogra phic Imaging 11/27/2024 2:55 PM EST Narrative 11/27/2024 3:52 PM EST ? [place] [facility] ?[address] ?[place] [address] ?XRay Report ? Signed ? Patient: Delgado,Charbel ?MR#: [id number] ? : 1970 ?Acct:[id number] ? Age/Sex: 54 / M ?ADM Date: 11/27/24 ? Loc: HO.ED ? Attending Dr: ? Ordering Physician: Bautista Gomes DO ?? Date of Service: 11/27/24 ?? Procedure(s): XR foot RT min 3V ?? Accession Number(s): [id number] ? cc: [facility]; Bautista Gomes DO ? EXAMINATION: ?? XR [...] DD/ 1455 ? TD/TT: 11/27/24 1542 ? Crew Car Driver: ? Procedure Note Renato Winter - 11/27/[address] [address] XRay Report Signed Patient: Isaias Delgado#: [id number] : 1970Acct:[id number] Age/Sex: 54 / MADM Date: 11/27/24 Loc: HO.ED Attending Dr: Ordering Physician: Bautista Gomes DO Date of Service: 11/27/24 Procedure(s): XR foot RT min 3V Accession Number(s): [id number] cc: [facility]; Bautista Gomes DO EXAMINATION: XR FOOT, RIGHT [...] 11/27/24 1550 DD/ 1455 TD/TT: 11/27/24 1542 Crew Car Driver: us [facility] External Provider IMG XR PROCEDURES Final Result * XR Foot 3+ Views Left (11/27/2024 2:55 PM EST) Anatomical Region Laterality Modality Lower Extremities, Foot Left Radiogra phic Imaging 11/27/2024 2:55 PM EST Narrative 11/27/2024 3:58 PM EST ? [facility] ?[address] ?[place] [address] ?XRay Report ? Signed ? Patient: Delgado,Charbel ?MR#: [id number] ? : 1970 ?Acct:[id number] ? Age/Sex: 54 / M ?ADM Date: 01/15/25 ? Loc: HO.ED ? Attending Dr: ? Ordering Physician: Bautista Gomes DO ?? Date of Service: 11/27/24 ?? Procedure(s): XR foot LT min 3V ?? Accession Number(s): [id number] ? cc: [facility]; Bautista Gomes DO ? EXAMINATION: ?? XR [...] DD/ 1455 ? TD/TT: 11/27/24 1542 ? Crew Car Driver: ? Procedure Note Moy, Renato - 11/27/[address] [address] XRay Report Signed Patient: Isaias Delgado#: [id number] : 1970Acct:[id number] Age/Sex: 54 / MADM Date: 11/27/24 Loc: HO.ED Attending Dr: Ordering Physician: Bautista Gomes DO Date of Service: 11/27/24 Procedure(s): XR foot LT min 3V Accession Number(s): [id number] cc: [facility]; Bautista Gomes DO EXAMINATION: XR FOOT, LEFT [...] 11/27/24 1555 DD/ 1455 TD/TT: 11/27/24 1542 Crew Car Driver: [facility] External Provider IMG XR PROCEDURES Final Result * XR Ankle 3+ Views Right (11/27/2024 2:55 PM EST) Anatomical Region Laterality Modality Lower Extremities, Ankle Right Radiogr aphic Imaging 11/27/2024 2:55 PM EST Narrative 11/27/2024 3:55 PM EST ? [facility] ?[address] ?[place] [address] ?XRay Report ? Signed ? Patient: Delgado,Charbel ?MR#: [id number] ? : 1970 ?Acct:[id number] ? Age/Sex: 54 / M ?ADM Date: 11/27/24 ? Loc: HO.ED ? Attending Dr: ? Ordering Physician: Bautista Gomes DO ?? Date of Service: 11/27/24 ?? Procedure(s): XR ankle RT min 3V ?? Accession Number(s): [id number] ? cc: [facility]; Bautista Gomes DO ? EXAMINATION: ?? XR [...] DD/ 1455 ? TD/TT: 11/27/24 1542 ? Crew Car Driver: ? Procedure Note Donothennater, Image - 11/27/[address] [address] XRay Report Signed Patient: Isaias Delgado#: [id number] : 1970Acct:[id number] Age/Sex: 54 / MADM Date: 11/27/24 Loc: HO.ED Attending Dr: Ordering Physician: Bautista Gomes DO Date of Service: 11/27/24 Procedure(s): XR ankle RT min 3V Accession Number(s): [id number] cc: [facility]; Bautista Gomes DO EXAMINATION: XR ANKLE, RIGHT [...] 11/27/24 1552 DD/ 1455 TD/TT: 11/27/24 1542 Crew Car Driver: us [facility] External Provider IMG XR PROCEDURES Final Result * XR Ankle 3+ Views Left (11/27/2024 2:55 PM EST) Anatomical Region Laterality Modality Lower Extremities, Ankle Left Radiogr aphic Imaging 11/27/2024 2:55 PM EST Narrative 11/27/2024 3:56 PM EST ? [facility] ?[address] ?[place] [address] ?XRay Report ? Signed ? Patient: Delgado,Charbel ?MR#: [id number] ? : 1970 ?Acct:[id number] ? Age/Sex: 54 / M ?ADM Date: 11/27/24 ? Loc: HO.ED ? Attending Dr: ? Ordering Physician: Bautista Gomes DO ?? Date of Service: 11/27/24 ?? Procedure(s): XR ankle LT min 3V ?? Accession Number(s): [id number] ? cc: [facility]; Bautista Gomes DO ? EXAMINATION: ?? XR [...] DD/ 1455 ? TD/TT: 11/27/24 1542 ? Crew Car Driver: ? Procedure Note Renato Winter - 11/27/[address] [address] XRay Report Signed Patient: Rod DelgadoGeraldine#: [id number] : 1970Acct:[id number] Age/Sex: 54 / MADM Date: 11/27/24 Loc: HO.ED Attending Dr: Ordering Physician: Bautista Gomes DO Date of Service: 11/27/24 Procedure(s): XR ankle LT min 3V Accession Number(s): [id number] cc: [facility]; Bautista Gomes DO EXAMINATION: XR ANKLE, LEFT [...] by: Eric Steele MD 11/27/2024 03:53 PM [facility] Dictated By: Eric Nobles MD Signed By: <Electronically signed by Eric Kwon MDin OV> 11/27/24 1553 DD/ 1455 TD/TT: 11/27/24 1542 Crew Car Driver: [facility] External Provider IMG XR PROCEDURES Final Result from Last [address] [address] STANDARD HSN PARTIAL
--- OUTSIDE RECORDS SUMMARY | 2025-02-21 06:23 | XMS_ITS | Data Portability ---
Author Organization [facility], Main Office Address [address] [place] [address] [address] [place] [address] Care Team Providers Care Dining Room Server Name Role Phone [facility] ([facility] OTHER Assessment Encounter Date Assessment Date Assessment [...] Address Organization Details Recorded Time Alcohol abuse 95775664 Active 2022 HALEY WYATT [address] [facility], [address], [place], [address], [facility] 3 16:10:20 Alcoholic cirrhosis 161534716 Active 2022 HALEY WYATT [address] [facility], [address], [place], [address], [facility] 3 16:10:32 Anemia 820768011 Active 2022 HALEY WYATT [address] [facility], [address], [place], [address], [facility] 3 16:10:45 Hepatic encephalop athy 72346305 Active 2022 HALEY WYATT [address] [facility], [address], [place], [address], [facility] 3 16:11:37 Acute respirator y failure 25284042 Active 2022 HALEY WYATT [address] [facility], [address], [place], [address], [facility] 3 16:12:23 Laboratory finding abnormal Active 2022 hypokalemi a hypomagnes ium pancytopen ua repleted in acute care. mag oxide 400 mg BID HALEY WYATT [address] [facility], [address], [place], [address], [facility] 3 16:40:30 Congestive heart failure 89605976 Active 2022 HALEY WYATT [address] [facility], [address], [place], [address], [facility] 3 16:25:07 Homeless 73793789 Active 2022 ANDREYHALEY GASPAR [address] [facility], [address], [place], [address], [facility] 3 16:55:00 Pancytopen ia 990333068 Active 2022 ANDREYHALEY GASPAR [address] [facility], [address], [place], [address], [facility] 3 21:48:09 Esophageal varices 86609439 Active 2022 HALEY WYATT [address] [facility], [address], [place], [address], [facility] 3 16:19:34 Problem Notes None recorded. [...] 110 mm[Hg] 70 mm[Hg] Lis Oconnell MD [address] [place] [address], [facility] [address], [place], [address], [facility] 4 08:21:06 Date Recorded Heart rate Respiratory rate Body temperature Oxygen saturation Oxygen saturation in Arterial blood by Pulse oximetry Systolic blood pressure Diastolic blood pressure Provider Name and Address Organization Details Last Updated DateTime 4 67 /min 16 /min 97.6 [degF] 95 % 95 % 107 mm[Hg] 66 mm[Hg] BRADY HOGAN NP [address] [facility], [address], [place], [address], [facility] 4 10:20:23 Social History Question Answer Notes LastModified by Organizat ion Details LastModified Time Tobacco Smoking Status Former Smoker ANDREY RODRIGUEZHALEY CRUZ [address] [facility], [address], [place], [address], [facility] 09/12/2023 16:57:06 Do You Have An [...] Do You Have A Medical Power Of Stock Clipper? No HCP/brother Information not available 09/12/2023 What [...] mcg/0.3 mL dose 3 completed Mojgan jain [facility] 11/10/2023 13:12:58 Tdap 1 completed Mojgan jain [facility] 03/01/2024 11:01:29 Td (adult), 5 Lf tetanus toxoid, preservative free, adsorbed 7 completed Mojgan jain [place] [facility] 03/01/2024 11:06:00 Past Encounters Encounter ID Performer Location Encounter Start Date Encounter Closed Date Diagnosis/Indication Diagnosis SNOMED-CT Code Diagnosis ICD10 Code Diagnosis Note [id number] HALEY WYATT [facility] on [address] [place] [address] 09/12/2023 08:36:44 09/15/2023 08:04:55 Hepatic encephalopathy 58012949 K76.82 resolved in acute care/see hpistarted on lactuloser ifaximin 550 mg BIDlactulo se 40 g TID. Acute resp iratory failure 58134410 J96.00 with hypoxia d/t to acute on chronic heart failure-di uresed w/IV lasix resolved in acute care Anemia 566471221 D64.9 see hpiCT scan with distal esophageal varices.- EGD suspected gastric varies as source of bleedfollo w up with GI in 4 weeks for repeat EGD Congestive heart failure 01921747 I50.9 with preserved ejection fractionCT scan showed small plueral effusionCX R with bibasilar opacitiesc ontinue furosemide 20 mg BIDcontinu e spironolac tone 12.5 mg BIDlow salt diet.monit or weight Alcohol abuse 41979562 F 10.10 with acute withdrawal in acute care tx with phenobarbi germania taper.decl ined recovery support in acute carethiami ne 100 mg dailyfolic acid 1 mg daily Bleeding g astric varices 24935733 I86.4 source of anemiaomep razole [address] dailysucra lfate 1 gm BIDcontinu e PPI and sucralfate Homeless 31032936 Z59.00 Social service refer for community resources. [id number] Lis Oconnell MD [facility] on [address] [place] [address] 09/13/2023 05:12:10 09/15/2023 08:33:31 Acute on chronic diastolic heart failure 508918519 I50.33 improved:s pironolact one 12.5 mg bidfurosem eliana 20 mg bidwill monitor Alcohol abuse 04493416 F 10.10 thiamine 100 mg dailyfolic acid 1 gm dailyinter disciplina ry support for sobrietywi ll monitor and support as needed Bleeding e sophageal varices 34367587 I85.01 s/p blood transfusio ns, octeotride , banding/he mospray:om eprazole 40 mg dailysucra lfate 1 gm bidwill monitor Alcoholic cirrhosis 4200 93953 K70.31 Xifaxan 550 mg bidspirono lactone 12.5 mg bidfurosem eliana 20 mg bidwill monitor Hepatic encephalopathy 55255374 K76.82 lactulose 40 gm tidwill monitor [id number] HALEY WYATT [facility] on [address] [place] [phone] 09/18/2023 11:37:36 09/20/2023 15:12:00 Congestive heart failure 80937476 I50.9 continue furosemide 20 mg BIDcontinu e spironolac tone 12.5 mg BIDlow salt diet.monit or weight Alcohol abuse 67744220 F 10.10 will consider acamprosta te 666 mg TID.thiami ne 100 mg dailyfolic acid 1 mg daily Bleeding g astric varices 96021912 I86.4 source of anemiaomep razole [address] dailysucra lfate 1 gm BIDcontinu e PPI and sucralfate Hepatic encephalopathy 62802572 K76.82 resolved in acute care/see hpistarted on lactuloser ifaximin 550 mg BIDlactulo se 40 g TID.- reports loose stool x's 1 daily. will continue to monitor for now . [id number] HALEY WYATT [facility] on [address] [place] [address] 10/06/2023 10:25:53 10/18/2023 12:16:47 Altered mental status 994963639 R41.82 see hpiconcern for hepatic encephalop athy due to hxsend to ER for further evaluation [id number] HALEY WYATT [facility] on [address] [place] [phone] 10/12/2023 13:49:36 10/18/2023 15:10:16 Hepatic encephalopathy 96676900 K76.82 resolved in acute care/see hpiimaging with no acute processCon tinue lactulose, rifaximin, Lasix, spironolac toneFollow -up outpatient GI Congestive heart failure 88724174 I50.9 continue furosemide 20 mg BIDcontinu e spironolac tone 12.5 mg BIDlow salt diet.monit or weight Pancytopenia 373547223 D 61.818 wbc 3.41-Hgb 7.3-HCT 23.2Possib ly due to alcohol abuseWill continue to monitor CBC [id number] HALEY WYATT [facility] on [address] [place] [address] 10/16/2023 13:03:21 11/22/2023 15:10:28 Hepatic encephalopathy 22598741 K76.82 resolved in acute care/see hpiimaging with no acute processCon tinue lactulose, rifaximin, Lasix, spironolac toneFollow -up outpatient GI Congestive heart failure 68970820 I50.9 continue furosemide 20 mg BIDcontinu e spironolac tone 12.5 mg BIDlow salt diet.monit or weight Pancytopenia 910589385 D 61.818 see aboveimpro kiki hgb 8.8- Plt 68Possibly due to alcohol abuseWill continue to monitor CBC [id number] HALEY WYATT [facility] on [address] [place] [phone] 10/24/2023 11:18:12 11/03/2023 11:47:28 Hepatic encephalopathy 93567265 K76.82 alert and oriented x's 2 today unsure of date.resol kiki in acute care/see hpiimaging with no acute processCon tinue lactulose, rifaximin, Lasix, spironolac toneFollow -up outpatient GI Congestive heart failure 17743996 I50.9 Stablke, no reported sxcontinue furosemide 20 mg BIDcontinu e spironolac tone 12.5 mg BIDlow salt diet.monit or weight Pain of le ft shoulder joint [id number] 7553867 M25.512 see hpixray 3 viewstylen ol 975 mg scheduledm otrin 600 mg scheduled. PT referral for pain with abduction. [id number] HALEY WYATT [facility] on [address] [place] [phone] 10/27/2023 09:08:50 11/03/2023 12:28:46 Hepatic encephalopathy 04410038 K76.82 appears to be a baseline status, however he appears disoriente d at times.Cont inue lactulose, rifaximin, Lasix, spironolac toneFollow -up outpatient GI Congestive heart failure 64577830 I50.9 Stablecont inue furosemide 20 mg BIDcontinu e spironolac tone 12.5 mg BIDlow salt diet.monit or weight Pain of le ft shoulder joint 4516077328 8007865 M25.512 Xray completed, results reviewed with patient: Mild degenerati on of the left shoulder; no acute fracture or dislocatio n. continue with:tylen ol 975 mg scheduledm otrin 600 mg scheduled. PT referral for pain with abduction. [id number] HALEY WYATT [facility] on [address] [place] [phone] 11/08/2023 08:13:22 11/22/2023 16:43:01 Daisy-Zee tear 979345901 K22.6 2 days of melena with coffee-kell und emesis on presentati on.GI consulted and performed upper endoscopy on 10/31, evidence of daisy zee tear, gastric ulcers s/p clip placement. continue PPI omeprazole 40 mg twice daily.Carv edilol started as per recommenda tions for esophageal varicesPat ient was advised to avoid NSAID Esophageal varices 21172 008 I85.00 Started on carvedilol 6.25 mg bidomepraz ole 40 mg bidsucralf ate 1 gm BID Anemia 851930778 D64.9 Hgb 6.4 on presentati on to acute careDue to upper GI bleed,Rece ived 3 units of PRBC in acute careCarved ilol started for varices [id number] HALEY WYATT [facility] on [address] [place] [phone] 11/14/2023 07:57:53 12/01/2023 10:08:54 Daisy-Zee tear 163396695 K22.6 11/14 there has been no reported couging and vomiting. 2 days of melena with coffee-kell und emesis on presentati on.GI consulted and performed upper endoscopy on 10/31, evidence of daisy zee tear, gastric ulcers s/p clip placement. continue PPI omeprazole 40 mg twice daily.Carv edilol started as per recommenda tions for esophageal varicesPat ient was advised to avoid NSAID Esophageal varices 88608 008 I85.00 stableStar forrest on carvedilol 6.25 mg bidomepraz ole 40 mg bidsucralf ate 1 gm BID Anemia 673824945 D64.9 11/14will recheck labspatien t denies excess fatigue, weakness, shortness of breathdoes not appear pale, color normal. Hgb 6.4 on presentati on to acute careDue to upper GI bleed,Rece ived 3 units of PRBC in acute careCarved ilol started for varices [id number] HALEY WYATT [facility] on [address] [place] [phone] 11/17/2023 08:07:13 12/01/2023 11:37:06 Daisy-Zee tear 260090453 K22.6 stable, There has been no new reported sx.2 days of melena with coffee-kell und emesis on presentati on.GI consulted and performed upper endoscopy on 10/31, evidence of daisy zee tear, gastric ulcers s/p clip placement. continue PPI omeprazole 40 mg twice daily.Carv edilol started as per recommenda tions for esophageal varicesPat ient was advised to avoid NSAID Esophageal varices 79445 008 I85.00 stableStar forrest on carvedilol 6.25 mg bidomepraz ole 40 mg bidsucralf ate 1 gm BID Anemia 357112719 D64.9 11/15: hgb 8.0 hct 25.6will recheck labs Hgb 6.4 on presentati on to acute careDue to upper GI bleed,Rece ived 3 units of PRBC in acute careCarved ilol started for varices [id number] Lis Oconnell MD [facility] on [address] [place] [phone] 11/24/2023 08:20:43 11/29/2023 17:59:33 Alcohol abuse 61714309 F10.10 thiamine 100 mg dailyfolic acid 1 gm dailyMVI dailyacamp rosate 666 mg tidinterdi sciplinary support for sobrietywi ll monitor and support as needed Upper gastrointestinal bleeding 49568911 K92.89 with history varices, Daisy Zee tear:sucra lfate 1 gm bidomepraz ole 40 mg o06admpi monitoravo id NSAIDs Alcoholic cirrhosis 4200 37411 K70.31 Xifaxan 550 mg bidspirono lactone 12.5 mg bidfurosem eliana 20 mg dailylactu lose 40gm tidwill monitor Esophageal varices 44924 008 I85.00 see meds for history UGI bleed:also carvedilol 6.25 mg bidwill monitor [id number] BRADY HOGAN NP [facility] on [address] [place] [address] 11/28/2023 09:53:56 12/01/2023 12:57:26 Alcohol abuse 76479112 F10.10 thiamine 100 mg dailyfolic acid 1 gm dailyMVI dailyacamp rosate 666 mg tidinterdi sciplinary support for sobrietywi ll monitor and support as needed Upper gastrointestinal bleeding 20628303 K92.89 with history varices, Daisy Zee tear:sucra lfate 1 gm bidomepraz ole 40 mg t28bsoxr monitoravo id NSAIDs Alcoholic cirrhosis 4200 11243 K70.31 Xifaxan 550 mg bidspirono lactone 12.5 mg bidfurosem eliana 20 mg dailylactu lose 40gm tidwill monitor Esophageal varices 30295 008 I85.00 see meds for history UGI bleed:carv edilol 6.25 mg bidwill monitor Health Concerns Section Related Observation LastModified by Organization Detai ls LastModified Time None Recorded Concern Status LastModified by Organization Details LastModified Time None Recorded Advance Directives Directive Y: Payers Encounter Date Sequence Insurance Name Policy Number Policy Yip Covered Member ID Yip Member ID Guarantor Name 11/08/2023 1 [place] [facility] Charbel Delgado [id number] Charbel Delgado 11/14/2023 1 [place] [facility] Charbel Delgado [id number] Charbel Delgado 11/17/2023 1 [place] [facility] [id number] Charbel Delgado 11/24/2023 1 [place] [facility] [id number] Charbel Delgado 11/28/2023 1 [place] [facility] [id number] Charbel Delgado Notes Date Note Type Note [...] a few weeks. Molst: HALEY Cummings [address] [facility], [address], [place], [address], [facility] 11/08/2023 16:31:23 11/14/2023 text/html Patient is 53-ye ar-old male seen today for acute rounding visit. Today he is stable, he was sent to ED on 11/09 for hgb noted 7.0 and had repeat labs in ED hgb 8.1. He returned [facility] the same evening and has been [...] in a few weeks. HALEY WYATT [address] [facility], [address], [place], [address], [facility] 11/14/2023 21:53:05 11/17/2023 text/html Patient is [...] no acute nursing concerns. HALEY WYATT [address] [facility], [address], [place], [address], [facility] 11/17/2023 13:21:44 11/24/2023 text/html This 53 year old male [facility] resident is seen today for routine rounding visit and acute rounding visit. Medical history is remarkable for history of alcohol use disorder with alcoholic cirrhosis, HFpEF, hypertension, ADHD, anxiety, depression Patient was sent out of facility to ER at [facility] on 10/30/23 with melena and [...] full code assumed Lis Oconnell MD [address] [facility], [address], [place], [address], [facility] 11/24/2023 12:23:26 11/28/2023 text/html seen today for a cute rounding visit, CAOx3 he is complaining about being bored, independent in room, gait steady, mood stable, staff report no concerns BRADY HOGAN NP [address] [facility], [address], [place], [address], [facility] 11/28/2023 10:23:34
--- OUTSIDE RECORDS SUMMARY | 2025-02-21 06:23 | XMS_ITS ---
Author Organization [facility] Address [address] [facility] 7 [place] [address] Care Team Providers Care Network Diagnostic Support Specialist Name Role Phone Unavailable Primary Care Provider Unavailabl e CHW Complex Status:Outreach In Progress (Enrolling) Start date:02/05/2025 Enrollment reason:ADT Feed Overview ED- Pt went to [facility] on 02/04/25. Case Team Name Relationship Phone Kiki Mims (Responsible Staff) Continued Care and Services Coordination
--- OUTSIDE RECORDS SUMMARY | 2025-02-21 06:23 | XMS_ITS | Encounter Summary ---
Author Organization [facility] Address [address] [place] [address] Care Team Providers Care Real Property Appraiser Name Role Phone Unavailable Primary Care Provider Unavailabl e Encounter Details Date Type Department Care Team (Late st Contact Info) Description 02/11/2025 Orders Only [facility] External Provider, [facility] Social History Tobacco Use Types Packs/Day [...] AM EDT T/C to pt to review [facility] walk-in clinic if pt is in need of follow-up help. Pt is not an [facility] patientat this time but has upcoming new patient appointment with Dr. Murry in April. No answer left voicemail to return call to [facility]. Pt to F/U PRN documented in this encounter Plan of Treatment Upcoming Encounters Date Type Department Care Team (Late st Contact Info) Description 05/02/2025 10:00 AM EDT Office Visit [facility] MEDICINE [address], [place] [phone] Misti Murry MD [address] [place] [address] documented as of this encounter Procedures Procedure Name Priority Date/Time Associated Diagnosis Comments XR CHEST 1 VIEW Routine 02/11/2025 11:05 AM EDT documented in this encounter Results * XR Chest 1 View (02/11/2025 11:05 AM EDT) Anatomical Region Laterality Modality Chest Radiographic Lamar ging 02/11/2025 11:0 5 AM EDT Narrative 02/11/2025 11:19 AM EDT ? [facility] ?[address] ?[place] [address] ?XRay Report ? Signed ? Patient: Delgado,Charbel ?MR#: [id number] ? : 1970 ?Acct:[id number] ? Age/Sex: 55 / M ?ADM Date: 02/11/25 ? Loc: HO.S3 ?370-1 ? Attending Dr: Rolan Baker MD ? Ordering Physician: Rolan Baker MD ?? Date of Service: 02/11/25 ?? Procedure(s): XR chest 1V ?? Accession Number(s): [id number] ? cc: [facility]; Rolan Baker MD ? EXAMINATION: ??XR CHEST [...] DD/ 1105 ? TD/TT: 02/11/25 1111 ? Senior Benefits Analyst: ? Procedure Note [facility] - 02/11/[address] [address] XRay Report Signed Patient: Isaias Delgado#: [id number] : 1970Acct:[id number] Age/Sex: 55 / MADM Date: 02/11/25 Loc: [facility] 370-[address]: Rolan Baker MD Ordering Physician: Rolan Baker MD Date of Service: 02/11/25 Procedure(s): XR chest 1V Accession Number(s): [id number] cc: [facility]; Rolan Baker MD EXAMINATION: XR CHEST 1 [...] 02/11/25 1116 DD/ 1105 TD/TT: 02/11/25 1111 Senior Benefits Analyst: [facility] External Provider IMG XR PROCEDURES Final Result documented in this encounter Visit Diagnoses Not on filedocumented in this encounter
[2025-02-21 06:34] VITALS: BP 114/72; PULSE 91; RESP 20; TEMP 36.8; O2SAT 93
--- NOTE | 2025-02-21 07:27 | ED_ITS ---
HPI - Alcohol General Chief Complaint: ETOH/Substance Use Stated Complaint: ETOH, insomnia & epitaxies Time Seen by Provider: 02/21/25 07:02 History of Present Illness HPI narrative: Patient is a 55-year-old male brought in today found outside in the rain cold after drinking alcohol. Patient denies any specific complaints and is sleeping. Related Data Home Medications ?Medication ?Instructions ?Recorded ?Confirmed lactulose 10 gram/15 mL oral 30 ml PO TID 02/01/25 02/15/25 solution omeprazole 40 mg capsule,delayed 40 mg PO DAILY@0630 02/01/25 02/15/25 release Previous Rx's ?Medication ?Instructions ?Recorded acetaminophen 325 mg tablet 975 mg (3 x 325 mg) PO Q6H PRN 12/17/24 Pain, Mild 1-3,Fever,Headache #30 tabs magnesium oxide 400 mg (241.3 mg 400 mg PO DAILY #30 tabs 12/17/24 magnesium) tablet sodium chloride 0.65 % nasal spray 1 spray intranasal Q1H PRN Dryness 12/17/24 aerosol (Deep Sea Nasal) #44 mL sucralfate 1 gram tablet (Carafate) 1 g PO BID #60 tabs 12/17/24 folic acid 1 mg tablet 1 mg PO DAILY #90 tabs 02/04/25 thiamine mononitrate (vit B1) 100 100 mg PO DAILY #90 tabs 02/04/ mg tablet spironolactone 25 mg tablet 25 mg PO DAILY #90 tabs 02/13/25 levofloxacin 750 mg tablet 750 mg PO Q24H #7 tabs 02/18/25 Allergies Allergy/AdvReac Type Severity Reaction Status Date / Time No Known Allergies Allergy Verified 02/21/25 00:21 [No Known Allergies*] Review of Systems Review of Systems: Positive EtOH Yes all other systems are reviewed and are negative PMFSH Past Medical History Attestation statement: The following information was validated with the patient. Medical History Alcohol abuse Acute hypoxemic respiratory failure Anemia Alcohol use disorder Pneumonia Alcohol withdrawal syndrome Pancytopenia Alcohol abuse Thrombocytopenia Esophageal varices Acute on chronic anemia Alcoholic liver disease Aspiration pneumonia Thrombocytopenia Malnutrition CHF (congestive heart failure) Anemia Hypomagnesemia Cirrhosis Thrombocytopenia Acute on chronic anemia CHF (congestive heart failure) Anemia Alcohol abuse Surgical History No history of previous surgery Social History Social History Household Members: Other Household Members Other:: homeless Housing: Homeless Housing Other:: Homeless detention Do you presently have visiting nurse or other home services: No Unable to assess alcohol history related to: Refusing to respond Alcohol intake: current Alcohol intake frequency: 3 or more drinks per day Alcohol type: beer and hard liquor Comment: 1 assist to bathroom Patient Tobacco Use Status: Former Tobacco user Tobacco use type: Cigarette Second Hand Smoke Exposure: No Advance Directives: Yes Advance Directives on File: Yes Advance Directives Date on File: 07/03/23 Do you have a plan to hurt others: No Plan service: No Physical Exam ED Vital Signs: Vital Signs - 24 hr 02/21/25 00:20 02/21/25 06:34 Temperature 97.6 F 98.3 F Pulse Rate 100 91 Respiratory Rate 16 20 Blood Pressure 132/84 114/72 Pulse Oximetry 94 93 Oxygen Delivery Method Room Air Nasal Cannula Oxygen Flow Rate 2 BMI result Body Mass Index 19.4 Appearance: Alert. Oriented X3. No acute distress. Eyes: Pupils equal, round and reactive to light. ENT: Pharynx normal. Neck: Normal inspection. Neck supple. No lymph nodes noted. No crepitus CVS: Normal heart rate and rhythm. Pulses normal. Normal S1 and S2 Respiratory: No respiratory distress. Breath sounds normal. No Wheezing. No rales Abdomen: Soft and nontender. No rigidity. No distention. good BS x4 Skin: Skin warm and dry. Normal skin color. Normal skin turgor. Extremities: No lower extremity edema. Neurovascular intact to all extremities. No Lacerations. No Rash Neuro: Oriented X 3. No motor deficit. No sensory deficit. Moving all extermities. No slurred speech Medical Decision Making Medical Decision Making MDM Narrative: Patient's vital signs are stable well-appearing no distress. Awaiting clinical sobriety. Will discharge patient home. Previous labs reviewed. Multiple episodes of alcohol abuse patient complaining of the same. Will discharge when sober. Differential Diagnosis Differential Diagnoses: The differential diagnosis associated with the presentation includes Alcohol intoxication Admission/Observation Consideration of admission/observation: Escalation of care including admission/observation considered Social Determinants Patient?s care significantly limited by Social Determinants of Health including: Alcoholism and drug addiction in family and Problems related to primary support group Discharge Plan Discharge Clinical Impression: Alcoholic intoxication Patient Disposition: Home, Self-Care Instructions: Alcohol Intoxication (ED) Prescriptions: No Action sucralfate [Carafate] 1 gram tablet 1 g PO BID Qty: 60 0RF acetaminophen 325 mg Tablet 975 mg PO Q6H PRN (Reason: Pain, Mild 1-3,Fever,Headache) Qty: 30 0RF magnesium oxide 400 mg (241.3 mg magnesium) Tablet 400 mg PO DAILY Qty: 30 0RF Deep Sea Nasal 0.65 % Aerosol,[place] 1 spray intranasal Q1H PRN (Reason: Dryness) Qty: 44 0RF spironolactone 25 mg tablet 25 mg PO DAILY Qty: 90 0RF levofloxacin 750 mg Tablet 750 mg PO Q24H Qty: 7 0RF lactulose 10 gram/15 mL solution 30 ml PO TID omeprazole 40 mg capsule,delayed release(DR/EC) 40 mg PO DAILY@0630 folic acid 1 mg Tablet 1 mg PO DAILY Qty: 90 0RF thiamine mononitrate (vit B1) 100 mg Tablet 100 mg PO DAILY Qty: 90 0RF Referrals: Physician,Unknown J [Primary Care Provider] - 02/24/25 Print Language: Azerbaijani
[2025-02-21 08:04] VITALS: BP 114/72; PULSE 91; RESP 20; TEMP 36.8; O2SAT 93
== END 2025-02-21 08:12 | disposition home or self-care (01) ==
PROVIDERS: Emergency Provider Emergency Medicine Emergency Medical Services
DX: G47.00 Insomnia, unspecified (principal); R04.0 Epistaxis; F10.129 Alcohol abuse with intoxication, unspecified; Y90.9 Presence of alcohol in blood, level not specified; Z79.899 Other long term (current) drug therapy
CPT/HCPCS: 36415; 80048; 80076; 80307; 85025; 99282; 99283; 99284

== ENCOUNTER 2025-02-21 14:32 | Emergency (ER) | payer MEDICAID, SELFPAY ==
[2025-02-21 14:47] VITALS: BP 117/50; PULSE 82; RESP 18; TEMP 37.1; O2SAT 88; O2SAT 95; BMI 19.4
--- NOTE | 2025-02-21 17:01 | ED.GENADULT ---
HPI - General Adult General Chief complaint: General Medical Stated complaint: ETOH Time Seen by Provider: 02/21/25 17:01 History of Present Illness ED Provider: Marty VIVAR narrative: The patient is a 55-year-old male with a history of alcoholism who was also homeless. He has a history of frequent ER visits. He comes to the emergency room by ambulance. He had no specific complaints. When I 1st saw him he asked to be discharged. However he later asked to be allowed to stay in the emergency room overnight. He subsequently requested discharge. He had no particular complaints. Related Data Home Medications ?Medication ?Instructions ?Recorded ?Confirmed lactulose 10 gram/15 mL oral 30 ml PO TID 02/01/25 02/15/25 solution omeprazole 40 mg capsule,delayed 40 mg PO DAILY@0630 02/01/25 02/15/25 release Previous Rx's ?Medication ?Instructions ?Recorded acetaminophen 325 mg tablet 975 mg (3 x 325 mg) PO Q6H PRN 12/17/24 Pain, Mild 1-3,Fever,Headache #30 tabs magnesium oxide 400 mg (241.3 mg 400 mg PO DAILY #30 tabs 12/17/24 magnesium) tablet sodium chloride 0.65 % nasal spray 1 spray intranasal Q1H PRN Dryness 12/17/24 aerosol (Deep Sea Nasal) #44 mL sucralfate 1 gram tablet (Carafate) 1 g PO BID #60 tabs 12/17/24 folic acid 1 mg tablet 1 mg PO DAILY #90 tabs 02/04/25 thiamine mononitrate (vit B1) 100 100 mg PO DAILY #90 tabs 02/04/ mg tablet spironolactone 25 mg tablet 25 mg PO DAILY #90 tabs 02/13/25 levofloxacin 750 mg tablet 750 mg PO Q24H #7 tabs 02/18/25 Allergies Allergy/AdvReac Type Severity Reaction Status Date / Time No Known Allergies Allergy Verified 02/22/25 00:39 [No Known Allergies*] Review of Systems Review of Systems: Yes all other systems are reviewed and are negative PMF Past Medical History Medical History Alcohol abuse Acute hypoxemic respiratory failure Anemia Alcohol use disorder Pneumonia Alcohol withdrawal syndrome Pancytopenia Alcohol abuse Thrombocytopenia Esophageal varices Acute on chronic anemia Alcoholic liver disease Aspiration pneumonia Thrombocytopenia Malnutrition CHF (congestive heart failure) Anemia Hypomagnesemia Cirrhosis Thrombocytopenia Acute on chronic anemia CHF (congestive heart failure) Anemia Alcohol abuse Surgical History No history of previous surgery Social History Social History Household Members: Other Household Members Other:: homeless Housing: Homeless Housing Other:: Homeless long-term Do you presently have visiting nurse or other home services: No Unable to assess alcohol history related to: Refusing to respond Alcohol intake: current Alcohol intake frequency: 3 or more drinks per day Alcohol type: beer and hard liquor Comment: 1 assist to bathroom Patient Tobacco Use Status: Former Tobacco user Tobacco use type: Cigarette Second Hand Smoke Exposure: No Advance Directives: Yes Advance Directives on File: Yes Advance Directives Date on File: 07/03/23 service: No Physical Exam ED Vital Signs: Vital Signs - 24 hr 02/21/25 14:47 02/21/25 21:00 Temperature 98.7 F 98.7 F Pulse Rate 82 82 Respiratory Rate 18 18 Blood Pressure 117/50 L 117/50 L Pulse Oximetry 88 L 88 L Oxygen Delivery Method Room Air Room Air BMI result Body Mass Index 19.4 Const Other: The patient is a chronically ill, unkempt 55-year-old who was asleep under a blanket. He awoke with tactile stimuli and seemed intoxicated but not otherwise ill. HENMT Other: No facial asymmetry. Mucous membranes moist. Eyes General: appearance normal, both eyes and all related structures Visual Sánchez: normal visual sánchez by confrontation Eyelids: Yes eyelids normal Sclerae: sclerae normal Pupils: Equal, round and reactive pupils present EOM: EOMs intact bilaterally Neck Neck: Yes normal visual inspection and Yes full ROM Resp Effort & Inspection: normal respiratory effort Auscultation: clear to auscultation bilaterally Cardio Rate: regular rate Rhythm: regular rhythm Heart sounds: S1 normal heart sound present and S2 normal heart sound present GI Other: The patient has a doughy abdomen. It is soft and nontender. Skin General skin exam: no rashes or lesions noted Neuro Other: The patient was sleeping and awoke easily with tactile stimuli. He seemed intoxicated. He had some mild thickness of speech. Cranial nerves were otherwise intact. He moves his extremities symmetrically. He had a steady gait. Cranial nerves: Yes Equal, round and reactive pupils present Extrem Other: No peripheral edema Medical Decision Making Medical Decision Making MDM Narrative: The patient is a 55-year-old male with frequent ER visits related to alcoholism and homelessness. The 1st the patient requested discharge. He later asked to stay overnight in the emergency room. Labs were done at that point with the plan for him to talk to the recovery team in the morning. His ethanol level was 214. He ultimately changed his mind about staying in the emergency room and requested discharge. He was not interested in detox. Lab Data 02/21/25 20:07 02/21/25 20:07 Labs: Lab Results 02/21/25 Range/Units 20:07 WBC 3.3 L (4.8-10.8) X10*3/uL RBC 2.60 L (4.60-5.80) X10*6/uL Hgb 7.8 L (14.0-18.0) g/dl Hct 23.9 L (42.0-52.0) % MCV 91.9 (80.0-98.0) fL MCH 30.0 (27.0-33.0) pg MCHC 32.6 (31.0-36.0) g/dl RDW 14.6 (11.0-16.0) % Plt Count 73 L (160-400) X10*3/uL MPV 10.8 (9.4-12.4) fL Immature Gran % (Auto) 0.3 (0.0-0.4) % Neut % (Auto) 49.3 (45-73) % Lymph % (Auto) 35.5 (20-40) % Campbell % (Auto) 11.6 H (2-11) % Eos % (Auto) 2.4 (0-4) % Baso % (Auto) 0.9 (0-2) % Lymph # (Auto) 1.2 (1.2-4.9) X10*3/uL Campbell # (Auto) 0.4 (0.1-1.2) X10*3/uL Eos # (Auto) 0.1 (0.0-0.4) X10*3/uL Baso # (Auto) 0.0 (0.0-0.2) X10*3/uL Abs Immat Gran (auto) 0.01 (0.00-0.03) X10*3/uL Absolute Neuts (auto) 1.6 L (2.0-8.3) x10*3/uL Absolute Nucleated RBC 0.000 (0.0-0.012) X10*3/uL Nucleated RBC % (auto) 0.0 (0.0-0.2) /100WBC Sodium 142 (135-145) mmol/L Potassium 4.3 (3.3-5.1) mmol/L Chloride 118 H (96-108) mmol/L Carbon Dioxide 17 L (22-29) mmol/L Anion Gap 11 L (12-20) BUN 17 H (9-16) mg/dL Creatinine 0.75 (0.5-1.4) mg/dL Estim Creat Clear Calc 84.6 Estimated GFR > 60 Random Glucose 88 (60-115) mg/dL Calcium 8.5 D (8.4-10.2) mg/dL Total Bilirubin 0.3 (0.0-1.0) mg/dL Direct Bilirubin 0.2 (0.0-0.5) mg/dL AST 33 (5-37) U/L ALT 10 (0-40) U/L Alkaline Phosphatase 104 (39-117) U/L Total Protein 7.4 (6.5-8.0) g/dL Albumin 3.5 (3.5-5.0) g/dL Urine Opiates Screen Not Detected (Not Detect) Ur Buprenorphine Scrn Not Detected (Not Detect) ng/mL Ur Oxycodone Screen Not Detected (Not Detect) ng/mL Urine Methadone Screen Not Detected (Not Detect) ng/mL Urine Fentanyl Screen Not Detected (Not Detect) Ur Barbiturates Screen POSITIVE H (Not Detect) Ur Phencyclidine Scrn Not Detected (Not Detect) Ur Amphetamines Screen Not Detected (Not Detect) U Benzodiazepines Scrn Not Detected (Not Detect) Urine Cocaine Screen Not Detected (Not Detect) U Marijuana (THC) Screen Not Detected (Not Detect) Ethyl Alcohol 214 mg/dL Discharge Plan Discharge Clinical Impression: Alcohol intoxication Patient Disposition: Home, Self-Care Additional Instructions: Please try to reduce your alcohol use. Please try to follow [facility] with [facility]. Alcohol use disorder You were seen in the Emergency Department today for treatment of alcohol use disorder.? You may have been given medications to help with your withdrawal symptoms.? Please do not drink alcohol with them. This is very dangerous and can cause respiratory depression or other adverse reactions depending on the medication. If you would like to cut down or stop your alcohol use please consider calling our outpatient Addiction Treatment office:? [facility] (-F [id number]) [address] [place] [address] [address] ? You have also been given a list of treatment providers in the area that can assist as well.? If you experience seizures, vomiting blood, black stools, falls, severe headache, chest pain, fevers, trouble breathing, hallucinations or any other concerns you need to call 911 or seek immediate care. Please stay hydrated. Return to the emergency room if you feel significantly worse. Please also try to work on getting a primary care doctor. Prescriptions: No Action sucralfate [Carafate] 1 gram tablet 1 g PO BID Qty: 60 0RF acetaminophen 325 mg Tablet 975 mg PO Q6H PRN (Reason: Pain, Mild 1-3,Fever,Headache) Qty: 30 0RF magnesium oxide 400 mg (241.3 mg magnesium) Tablet 400 mg PO DAILY Qty: 30 0RF Deep Sea Nasal 0.65 % Aerosol,[place] 1 spray intranasal Q1H PRN (Reason: Dryness) Qty: 44 0RF spironolactone 25 mg tablet 25 mg PO DAILY Qty: 90 0RF levofloxacin 750 mg Tablet 750 mg PO Q24H Qty: 7 0RF lactulose 10 gram/15 mL solution 30 ml PO TID omeprazole 40 mg capsule,delayed release(DR/EC) 40 mg PO DAILY@0630 folic acid 1 mg Tablet 1 mg PO DAILY Qty: 90 0RF thiamine mononitrate (vit B1) 100 mg Tablet 100 mg PO DAILY Qty: 90 0RF Referrals: [facility] [Provider Group] [facility] [Provider Group] [facility] [Provider Group] [facility] [Provider Group] Interventions: ED Discharge Assessment Last Done: 02/21/25 21:00 Discharge Date/Time: 02/21/25 21:01 Print Language: Serbian
[2025-02-21 20:12] LABS: MANUAL DIFF FLAG NO
[2025-02-21 20:13] LABS: Basophils Percent Auto 0.9 % (0-2); Eosinophils Absolute Auto 0.1 X10*3/uL (0.0-0.4); Eosinophils Percent Auto 2.4 % (0-4); Hematocrit 23.9 % (42.0-52.0); Hemoglobin 7.8 g/dl (14.0-18.0); Imm Gran Abs Auto 0.01 X10*3/uL (0.00-0.03); Imm Gran Pct Auto 0.3 % (0.0-0.4); Lymphocytes Absolute Auto 1.2 X10*3/uL (1.2-4.9); Lymphocytes Percent Auto 35.5 % (20-40); Mean Corpuscular HGB Conc 32.6 g/dl (31.0-36.0); Mean Corpuscular Volume 91.9 fL (80.0-98.0); Mean Platelet Volume 10.8 fL (9.4-12.4); Monocytes Absolute Auto 0.4 X10*3/uL (0.1-1.2); Monocytes Percent Auto 11.6 % (2-11); Neutrophils Absolute Auto 1.6 x10*3/uL (2.0-8.3); Neutrophils Percent Auto 49.3 % (45-73); Platelet Count 73 X10*3/uL (160-400); Red Cell Distribution Width 14.6 % (11.0-16.0); White Blood Count 3.3 X10*3/uL (4.8-10.8)
[2025-02-21 20:23] LABS: Amphetamine Screen Urine Not Detected (Not Detect); Barbiturates, Urine POSITIVE (Not Detect); Benzodiazepines Screen Urine Not Detected (Not Detect); Buprenorphine Scr Not Detected (Not Detect); Cannabinoid Screen Urine Not Detected (Not Detect); Cocaine Screen Urine Not Detected (Not Detect); Fentanyl, urine Not Detected (Not Detect); Methadone Screen, Urine Not Detected (Not Detect); Opiate Screen Urine Not Detected (Not Detect); Oxycodone Screen Urine Not Detected (Not Detect); Phencyclidine Screen Urine Not Detected (Not Detect)
[2025-02-21 20:38] LABS: Alanine Aminotransferase 10 U/L (0-40); Albumin Level 3.5 g/dL (3.5-5.0); Alkaline Phosphatase 104 U/L (39-117); Anion Gap 11 (12-20); Aspartate Amino Transferase 33 U/L (5-37); Bilirubin Direct 0.2 mg/dL (0.0-0.5); Bilirubin Total 0.3 mg/dL (0.0-1.0); Blood Urea Nitrogen 17 mg/dL (9-16); Calcium 8.5 mg/dL (8.4-10.2); Carbon Dioxide 17 mmol/L (22-29); Chloride 118 mmol/L (96-108); Creatinine Clr Calc Pharmacy 84.6; Estimated Glomerular Filt Rate > 60; Ethanol 214 mg/dL; Glucose Random 88 mg/dL (60-115); Potassium 4.3 mmol/L (3.3-5.1); Sodium 142 mmol/L (135-145); Total Protein 7.4 g/dL (6.5-8.0)
[2025-02-21 21:00] VITALS: BP 117/50; PULSE 82; RESP 18; TEMP 37.1; O2SAT 88
== END 2025-02-21 21:01 | disposition home or self-care (01) ==
PROVIDERS: Emergency Provider Emergency Medicine
DX: F10.129 Alcohol abuse with intoxication, unspecified (principal); Y90.7 Blood alcohol level of 200-239 mg/100 ml; Z79.899 Other long term (current) drug therapy; Z87.891 Personal history of nicotine dependence
CPT/HCPCS: 36415; 80048; 80076; 80307; 85025; 99284

== ENCOUNTER 2025-02-22 00:29 | Emergency (ER) | payer MEDICAID, SELFPAY ==
[2025-02-22 00:33] VITALS: PULSE 79; O2SAT 98
[2025-02-22 00:36] VITALS: BP 107/54; PULSE 78; RESP 18; TEMP 36.8; O2SAT 91; BMI 22.5
--- NOTE | 2025-02-22 01:00 | ED_ITS ---
HPI - General Adult General Chief complaint: ETOH/Substance Use Stated complaint: ETOH/bloody nose Time Seen by Provider: 02/22/25 00:55 Source: patient, RN notes reviewed and old records reviewed Mode of arrival: EMS Limitations: altered mental status (acute alcohol intoxication) History of Present Illness ED Provider: Chapis HPI narrative: 55-year-old male presents for evaluation intoxication. Patient was discharged from this facility about 3 hours ago. he reports that he was back because of mother nature and drinking. He admits to drinking a few beers and nips since leaving complaints but is requesting food Related Data Home Medications ?Medication ?Instructions ?Recorded ?Confirmed lactulose 10 gram/15 mL oral 30 ml PO TID 02/01/25 02/15/25 solution omeprazole 40 mg capsule,delayed 40 mg PO DAILY@0630 02/01/25 02/15/25 release Previous Rx's ?Medication ?Instructions ?Recorded acetaminophen 325 mg tablet 975 mg (3 x 325 mg) PO Q6H PRN 12/17/24 Pain, Mild 1-3,Fever,Headache #30 tabs magnesium oxide 400 mg (241.3 mg 400 mg PO DAILY #30 tabs 12/17/24 magnesium) tablet sodium chloride 0.65 % nasal spray 1 spray intranasal Q1H PRN Dryness 12/17/24 aerosol (Deep Sea Nasal) #44 mL sucralfate 1 gram tablet (Carafate) 1 g PO BID #60 tabs 12/17/24 folic acid 1 mg tablet 1 mg PO DAILY #90 tabs 02/04/25 thiamine mononitrate (vit B1) 100 100 mg PO DAILY #90 tabs 02/04/ mg tablet spironolactone 25 mg tablet 25 mg PO DAILY #90 tabs 02/13/25 levofloxacin 750 mg tablet 750 mg PO Q24H #7 tabs 02/18/25 Allergies Allergy/AdvReac Type Severity Reaction Status Date / Time No Known Allergies Allergy Verified 02/22/25 00:39 [No Known Allergies*] Review of Systems Constitutional: Constitutional: Denies body ache(s), Denies chills and Denies headache(s) ENT: Denies vertigo and Denies headache(s) Cardiovascular: Cardiovascular: Denies chest pain and Denies dyspnea Respiratory: Respiratory: Denies cough and Denies dyspnea Gastrointestinal: Gastrointestinal: Denies abdominal pain, Denies nausea and Denies vomiting Musculoskeletal: Musculoskeletal: Denies back pain Integumentary/Breasts: Skin/Breast: Denies rash Neurologic: Denies vertigo and Denies headache(s) Psychiatric: Psychiatric: Denies suicidal ideation [facility] Past Medical History Medical History Alcohol abuse Acute hypoxemic respiratory failure Anemia Alcohol use disorder Pneumonia Alcohol withdrawal syndrome Pancytopenia Alcohol abuse Thrombocytopenia Esophageal varices Acute on chronic anemia Alcoholic liver disease Aspiration pneumonia Thrombocytopenia Malnutrition CHF (congestive heart failure) Anemia Hypomagnesemia Cirrhosis Thrombocytopenia Acute on chronic anemia CHF (congestive heart failure) Anemia Alcohol abuse Surgical History No history of previous surgery Social History Social History Household Members: Other Household Members Other:: homeless Housing: Homeless Housing Other:: Homeless senior living Do you presently have visiting nurse or other home services: No Unable to assess alcohol history related to: Refusing to respond Alcohol intake: current Alcohol intake frequency: 3 or more drinks per day Alcohol type: beer and hard liquor Comment: 1 assist to bathroom Patient Tobacco Use Status: Former Tobacco user Tobacco use type: Cigarette Second Hand Smoke Exposure: No Advance Directives: Yes Advance Directives on File: Yes Advance Directives Date on File: 07/03/23 service: No Physical Exam ED Vital Signs: Vital Signs - 24 hr 02/22/25 00:36 02/22/25 03:24 02/22/25 04:47 Temperature 98.2 F 98.7 F Pulse Rate 78 84 Respiratory Rate 18 16 16 Blood Pressure 107/54 L 107/55 L Pulse Oximetry 91 L 91 L Oxygen Delivery Method Room Air Room Air 02/22/25 08:25 Temperature 98.6 F Pulse Rate 87 Respiratory Rate 16 Blood Pressure 120/57 L Pulse Oximetry 86 L Oxygen Delivery Method Room Air BMI result Body Mass Index 22.5 Const General: healthy appearing, comfortable, no acute distress, alert and awake Nutritional Appearance: well nourished Orientation/consciousness: patient oriented x3 HENMT Head: Yes normocephalic and Yes atraumatic Eyes Eyelids: Yes eyelids normal Conjunctivae: conjunctivae normal Sclerae: sclerae normal Corneas: corneas normal Pupils: Equal, round and reactive pupils present EOM: EOMs intact bilaterally Neck Neck: Yes full ROM Resp Effort & Inspection: normal respiratory effort, able to speak in complete sentences and not labored GI Inspection: No distended Palpation (GI): Soft to palpation, not firm, nontender, no guarding and not rigid Skin General skin exam: elasticity normal Neuro General: patient oriented x3 Cranial nerves: Yes Equal, round and reactive pupils present and Yes Bilaterally intact EOM present Cognition (Neuro): normal cognition Extrem Other: Moving all extremities well without any obvious deformities Course Course Course Narrative: received sign out at 730am. Patient is up and walking his ambulatory O2 sat 86% he refuses to stay. He is alert and oriented. He is not in any resp distress and appears comfortable. at this time he can be signed out AMA. He is able to converse and he is not clinically intoxicated. I plan to discuss options for section 35 this week. Medical Decision Making Medical Decision Making [facility] Narrative: 55-year-old male presents for evaluation of alcohol use disorder. The patient was just seen at this facility, he was offered consideration for rehab but declines. He ended up requesting discharge so he was ultimately discharged. He has no medical complaints but admits to drinking alcohol in excess. Plan for observation Differential Diagnosis Differential Diagnoses: The differential diagnosis associated with the presentation includes alcohol abuse Acute alcohol intoxication Alcohol withdrawal Discharge Plan Discharge Clinical Impression: Acute alcohol intoxication Patient Disposition: Left Against Medical Advice Instructions: Alcohol Intoxication (ED), Against Medical Advice (ED) Additional Instructions: Alcohol use disorder You were seen in the Emergency Department today for treatment of alcohol use disorder.? You may have been given medications to help with your withdrawal symptoms.? Please do not drink alcohol with them. This is very dangerous and can cause respiratory depression or other adverse reactions depending on the medication. If you would like to cut down or stop your alcohol use please consider calling our outpatient Addiction Treatment office:? [facility] ([id number]) [address] ? You have also been given a list of treatment providers in the area that can assist as well.? If you experience seizures, vomiting blood, black stools, falls, severe headache, chest pain, fevers, trouble breathing, hallucinations or any other concerns you need to call 911 or seek immediate care. Please stay hydrated. YOUR OXYGEN LEVELS ARE CHRONICALLY LOW YOU NEED OXYGENT AND FURTHER CARE BUT YOU CONTINUE TO REFUSE. WE WILL BE WORKING ON A PLAN TO ADDRESS IT THIS WEEK Prescriptions: No Action sucralfate [Carafate] 1 gram tablet 1 g PO BID Qty: 60 0RF acetaminophen 325 mg Tablet 975 mg PO Q6H PRN (Reason: Pain, Mild 1-3,Fever,Headache) Qty: 30 0RF magnesium oxide 400 mg (241.3 mg magnesium) Tablet 400 mg PO DAILY Qty: 30 0RF Deep Sea Nasal 0.65 % Aerosol,[place] 1 spray intranasal Q1H PRN (Reason: Dryness) Qty: 44 0RF spironolactone 25 mg tablet 25 mg PO DAILY Qty: 90 0RF levofloxacin 750 mg Tablet 750 mg PO Q24H Qty: 7 0RF lactulose 10 gram/15 mL solution 30 ml PO TID omeprazole 40 mg capsule,delayed release(DR/EC) 40 mg PO DAILY@0630 folic acid 1 mg Tablet 1 mg PO DAILY Qty: 90 0RF thiamine mononitrate (vit B1) 100 mg Tablet 100 mg PO DAILY Qty: 90 0RF Stand Alone Forms: Against Medical Advice Print Language: Wallisian
[2025-02-22 03:24] VITALS: RESP 16
[2025-02-22 04:47] VITALS: BP 107/55; PULSE 84; RESP 16; TEMP 37.1; O2SAT 91
--- NOTE | 2025-02-22 06:47 | PC.NURSE ---
pt resting comfortably all night, no apparent distress noted. breathing even and unlabored
[2025-02-22 08:25] VITALS: BP 120/57; PULSE 87; RESP 16; TEMP 37; O2SAT 86
--- NOTE | 2025-02-22 08:26 | PC.NURSE ---
pt informed this RN he wanted to leave the ED. pt requesting his beer. vitals stable aside from o2 sat at 86%. DO Carin made aware. pt continues to state that he wants to leave. informed pt he checo be signing out AMA.
[2025-02-22 08:52] VITALS: BP 120/57; PULSE 87; RESP 16; TEMP 37; O2SAT 86
--- NOTE | 2025-02-22 08:55 | PC.NURSE ---
explained to pt upon d/c again that he would be leaving AMA d/t his o2 sat - pt stated well thats ok, I'll be ok, I promised my friend I'd help him move today .
== END 2025-02-22 09:36 | disposition left against medical advice (07) ==
PROVIDERS: Emergency Provider Internal Medicine
DX: F10.129 Alcohol abuse with intoxication, unspecified (principal); Y90.9 Presence of alcohol in blood, level not specified; Z79.899 Other long term (current) drug therapy; Z87.891 Personal history of nicotine dependence
CPT/HCPCS: 99283; 99284

== ENCOUNTER 2025-02-22 18:23 | Emergency (ER) | payer MEDICAID, SELFPAY ==
[2025-02-22 18:30] VITALS: BP 136/60; PULSE 84; O2SAT 96
[2025-02-22 18:42] VITALS: BP 126/67; PULSE 86; RESP 16; TEMP 36.6; O2SAT 84; O2SAT 90
[2025-02-22 18:46] VITALS: BP 126/67; PULSE 86; RESP 16; TEMP 36.6; O2SAT 98; BMI 18.3
--- OUTSIDE RECORDS SUMMARY | 2025-02-22 19:00 | XMS_ITS ---
Author Organization [employer] [facility] Address [address] [place] [id number] Care Team Providers [employer] Adviser Name Role Phone Unavailable Primary Care Provider Unavailabl e CM Complex Status:Outreach In Progress (Enrolling) Start date:02/05/2025 Enrollment reason:ADT Feed Overview ED- Pt went to [facility] on 02/04/25. Case Team Name Relationship Phone Missy Milner RN Registered Nurse(Responsible S taff) Continued Care and Services Coordination
--- OUTSIDE RECORDS SUMMARY | 2025-02-22 19:00 | XMS_ITS | Clinical Summary ---
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 Name Role Phone Unavailable Primary Care Provider [...] Patient presented with altered mental status from [facility] where he appeared more lethargic than his [...] Encounters Date Type Department Care Team Description 02/21/2025 Orders Only GENERIC EXTERNAL DATA DEPARTMENT Provider, Generic External Data 02/21/2025 Patient Outreach [address] [address] Santosh Daley MD Care Coordination (C3/CM Outreach) 02/19/2025 Patient Outreach [facility] [address] [place] [address] Missy Milner RN 02/13/2025 Patient Outreach [address] [address] Misti Murry MD Care Coordination (Outreach) 02/11/2025 Orders Only [facility] External Provider, [facility] 02/10/2025 Orders Only GENERIC EXTERNAL DATA DEPARTMENT Provider, Generic External Data 02/08/2025 Orders Only GENERIC EXTERNAL DATA DEPARTMENT Provider, Generic External Data 02/07/2025 Orders Only GENERIC EXTERNAL DATA DEPARTMENT Provider, Generic External Data 02/07/2025 Patient Outreach [address] [address] Misti Murry MD Care Coordination (C3/CM Outreach) 02/06/2025 Orders Only GENERIC EXTERNAL DATA DEPARTMENT Provider, Generic External Data 02/05/2025 Patient Outreach [address] [address] Santosh Daley MD Care Coordination (C3/CM Chart Review) 02/05/2025 Patient Outreach [facility] [address] [place] [address] Missy Milner RN Care Coordination (C3 chart review) 02/05/2025 Patient Outreach [address] [address] Santosh Daley MD 01/31/2025 Orders Only GENERIC EXTERNAL DATA DEPARTMENT Provider, Generic External Data 01/30/2025 Orders Only GENERIC CTC DEPARTMENT [facility] 01/24/2025 Patient Outreach [facility] [address] [place] [address] Santosh Daley MD Care Coordination (Outreach) 01/24/2025 Population Health Risk Score [facility] Department [address] [place] [phone] Provider, Population Health Generic 01/14/2025 Patient Outreach [facility] [address] [place] [address] Santosh Daley MD Care Coordination (Outreach) 01/06/2025 Patient Outreach [facility] [address] [place] [address] Santosh Daley MD Care Coordination (Outreach) 12/26/2024 Patient Outreach [facility] [address] [place] [address] Santosh Daley MD Care Coordination (Outreach) 11/29/2024 Orders Only GENERIC EXTERNAL DATA DEPARTMENT Provider, Generic External Data 11/28/2024 Orders Only [facility] External Provider, [facility] 11/27/2024 Orders Only GENERIC EXTERNAL DATA DEPARTMENT Provider, Generic External Data from Last 3 Months Immunizations Name Administration Dates Next Due Lucy SARS-CoV-2 Vaccination 04/28/2021 [employer] Covid-19 Vaccine 12+ Bivalent 11/23/2022 SARS-CoV-2, Unspecified [...] Description 05/02/2025 10:00 AM EDT Office Visit [facility] [address] [place] [address] Misti Murry MD [address] [place] [address] Health Maintenance Due Date Last Done Comments [...] Vaccines (1 of 2) 2019 COVID-19 Vaccine ( - 2023-2 5 season) 2024 11/23/2022, 04/28/2021, [...] Priority Date/Time Associated Diagnosis Comments ETHANOL Routine 02/21/2025 8:07 PM EDT BASIC METABOLIC PANEL Routine 02/21/2025 8:07 PM EDT HEPATIC FUNCTION PANEL Routine 8:07 PM EDT DRUG MONITOR, PANEL 1, SCREEN, URINE Routine 02/21/2025 8:07 PM EDT CBC WITH AUTO DIFFERENTIAL Routine 02/21/2025 8:07 PM EDT XR CHEST 1 VIEW Routine 02/11/2025 11:05 [...] EST from Last 3 Months Results * Ethanol (02/21/2025 8:07 PM EDT) Only the most recent of8 resultswithin the time period is included. ETHANOL (MG/DL) IN SER/PLAS 214 mg/dL [facility] Comment:Serum/plasma ethanol results are to be used formedical/treatment purposes only. 02/21/2025 8:07 PM EDT 02/21/2025 8:10 PM EDT us Generic External Data Provider LAB BLOOD ORDERAB LES Final Result [facility] [address] [place] [address] [phone] * (ABNORMAL) Drug Monitoring, Panel 1, Screen, Urine (02/21/2025 8:07 PM EDT) Only the most recent of2 resultswithin the time period is included. Opiate Screen Urine Not Detected Not Detect [facility] Comment:Opiate cut-off is 30 0 ng/mL.Positive results are unconfirmed and should not be used fornon-medical purposes. Barbiturates, Urine POSITIVE(A) Not Detect [facility] Comment:Barbiturate cut-off is 200 ng/mL.Positive results are unconfirmed and should not be used fornon-medical purposes. Phencyclidine Screen Urine Not Detected Not Detect [facility] Comment:Phencyclidine cut-of f is 25 ng/mL.Positive results are unconfirmed and should not be used fornon-medical purposes. Amphetamine Screen Urine Not Detected Not Detect [facility] Comment:Amphetamine cut-off is 1000 ng/mL.Positive results are unconfirmed and should not be used fornon-medical purposes. Benzodiazepines Screen Urine Not Detected Not Detect [facility] Comment:Benzodiazepine cut-o ff is 200 ng/mL.Positive results are unconfirmed and should not be used fornon-medical purposes. Cocaine Screen Urine Not Detected Not Detect [facility] Comment:Cocaine cut-off is 3 00 ng/mL.Positive results are unconfirmed and should not be used fornon-medical purposes. Cannabinoid Screen Urine Not Detected Not Detect [facility] Comment:Cannabinoid cut-off is 50 ng/mL.Positive results are unconfirmed and should not be used fornon-medical purposes. Methadone Screen, Urine Not Detected Not Detect ng/mL [facility] Comment:Methadone cut-off is 300 ng/mL.Positive results are unconfirmed and should not be used fornon-medical purposes. FENTANYL URINE Not Detected Not Detect [facility] Comment:Fentanyl cut-off is 1 ng/mL.Positive results are unconfirmed and should not be used fornon-medical purposes. Oxycodone Urine Screen Not Detected Not Detect ng/mL [facility] Comment:Oxycodone cut-off is 100 ng/mL.Positive results are unconfirmed and should not be used fornon-medical purposes. Buprenorphine Screen Not Detected Not Detect ng/mL [facility] Comment:Buprenorphine cut-of f is 5 ng/mL.Positive results are unconfirmed and should not be used fornon-medical purposes. 02/21/2025 8:07 PM EDT 02/21/2025 8:10 PM EDT us Generic External Data Provider LAB URINE ORDERAB LES Final Result [facility] [address] [place] [address] [phone] * (ABNORMAL) CBC auto differential (02/21/2025 8:07 PM EDT) Only the most recent of10 resultswithin the time period is included. White Blood Count 3.3(L) 4.8 - 10.8 X10*3/uL [facility] Red Blood Count 2.60(L) 4.60 - 5.80 X10*6/uL [facility] Hemoglobin 7.8(L) 14.0 - 18.0 g/dl [facility] Hematocrit 23.9(L) 42.0 - 52.0 % [facility] Mean Corpuscular Volume 91.9 80.0 - 98.0 fL [facility] Mean Corpuscular Hemoglobin 30.0 27.0 - 33.0 pg [facility] Mean Corpuscular HGB Conc 32.6 31.0 - 36.0 g/dl [facility] Red Cell Distribution Width 14.6 11.0 - 16.0 % [facility] Platelet Count 73(L) 160 - 400 X10*3/uL [facility] Mean Platelet Volume 10.8 9.4 - 12.4 fL [facility] Neutrophils Percent Auto 49.3 45 - 73 % [facility] Imm Gran Pct Auto 0.3 0.0 - 0.4 % [facility] Lymphocytes Percent Auto 35.5 20 - 40 % [facility] Monocytes Percent Auto 11.6(H) 2 - 11 % [facility] Eosinophils Percent Auto 2.4 0 - 4 % [facility] Basophils Percent Auto 0.9 0 - 2 % [facility] NRBC Pct Auto 0.0 0.0 - 0.2 /100WBC [facility] Neutrophils Absolute Auto 1.6(L) 2.0 - 8.3 x10*3/uL [facility] Imm Gran Abs Auto 0.01 0.00 - 0.03 X10*3/uL [facility] Lymphocytes Absolute Auto 1.2 1.2 - 4.9 X10*3/uL [facility] Monocytes Absolute Auto 0.4 0.1 - 1.2 X10*3/uL [facility] Eosinophils Absolute Auto 0.1 0.0 - 0.4 X10*3/uL [facility] Basophils Absolute Auto 0.0 0.0 - 0.2 X10*3/uL [facility] NRBC Abs Auto 0.000 0.0 - 0.012 X10*3/uL [facility] 02/21/2025 8:07 PM EDT 02/21/2025 8:10 PM EDT us Generic External Data Provider LAB BLOOD ORDERAB LES Final Result [facility] [address] [place] [address] [phone] * Hepatic Function Panel (02/21/2025 8:07 PM EDT) Only the most recent of3 resultswithin the time period is included. Bilirubin, Total 0.3 0.0 - 1.0 mg/dL [facility] Bilirubin, Direct 0.2 0.0 - 0.5 mg/dL [facility] Aspartate Amino Transferase 33 5 - 37 U/L [facility] Alanine Aminotransferase 10 0 - 40 U/L [facility] Total Protein 7.4 6.5 - 8.0 g/dL [facility] Albumin Level 3.5 3.5 - 5.0 g/dL [facility] Alkaline Phosphatase 104 39 - 117 U/L [facility] 02/21/2025 8:07 PM EDT 02/21/2025 8:10 PM EDT us Generic External Data Provider LAB BLOOD ORDERAB LES Final Result [facility] [address] [place] [address] [phone] * (ABNORMAL) Basic Metabolic Panel (02/21/2025 8:07 PM EDT) Only the most recent of3 resultswithin the time period is included. Sodium 142 135 - 145 mmol/L [facility] Potassium 4.3 3.3 - 5.1 mmol/L [facility] Chloride 118(H) 96 - 108 mmol/L [facility] Carbon Dioxide 17(L) 22 - 29 mmol/L [facility] Anion Gap 11(L) 12 - 20 [facility] Urea Nitrogen (BUN) 17(H) 9 - 16 mg/dL [facility] Creatinine, Serum 0.75 0.5 - 1.4 mg/dL [facility] Creatinine Clr Calc Pharmacy 84.6 [facility] Comment:eGFR (calculated fro m the MDRD study equation) and eCrCl(calculated from the Cockcroft-Gault equation) are based ondifferent parameters and may not yield comparable results.If eCrCl result is absurd, please check patient'sheight/weight. Estimated Glomerular Filt Rate >60 [facility] Comment:Chronic Kidney Disea se: Estimated GFR < 60 mL/min/1.08a7Xuerwi Kidney Disease: Estimated GFR < 15 mL/min/1.73m2 Glucose 88 60 - 115 mg/dL [facility] Calcium 8.5 8.4 - 10.2 mg/dL [facility] 02/21/2025 8:07 PM EDT 02/21/2025 8:10 PM EDT us Generic External Data Provider LAB BLOOD ORDERAB LES Final Result [facility] [address] [facility] [place] [address] [phone] * XR Chest 1 View (02/11/2025 11:05 AM EDT) Anatomical Region Laterality Modality Chest Radiographic Lamar ging 02/11/2025 11:0 5 AM EDT Narrative 02/11/2025 11:19 AM EDT ? [facility] ?[address] ?[place] [address] ?XRay Report ? Signed ? Patient: Delgado,Charbel ?MR#: [id number] ? : 1970 ?Acct:[id number] ? Age/Sex: 55 / M ?ADM Date: 02/11/25 ? Loc: HO.S3 ?370-1 ? Attending Dr: Rolan Baker MD ? Ordering Physician: Rolan Baker MD ?? Date of Service: 02/11/25 ?? Procedure(s): XR chest 1V ?? Accession Number(s): [id number] ? cc: [facility]; Rolan Baker MD ? EXAMINATION: [...] DD/ 1105 ? TD/TT: 02/11/25 1111 ? Keyboarding Teacher: ? Procedure Note Donotuseinterpreter, Image - 02/11/2025 [place] [address] XRay Report Signed Patient: Isaias Delgado#: [id number] : 1970Acct:[id number] Age/Sex: 55 / MADM Date: 02/11/25 Loc: HO.S3 370-[address]: Rolan Baker MD Ordering Physician: Rolan Baker MD Date of Service: 02/11/25 Procedure(s): XR chest 1V Accession Number(s): [id number] cc: [facility]; Rolan Baker MD EXAMINATION: XR [...] 02/11/25 1116 DD/ 1105 TD/TT: 02/11/25 1111 Keyboarding Teacher: us [facility] External Provider IMG XR PROCEDURES Final Result * Magnesium (02/10/2025 11:37 PM EDT) Only the most recent of3 resultswithin the time period is included. Magnesium 1.7 1.6 - 2.6 mg/dL [facility] 02/10/2025 11:3 7 PM EDT 02/10/2025 11:43 PM EDT us Generic External Data Provider LAB BLOOD ORDERAB LES Final Result [facility] [address] [place] [address] [phone] * (ABNORMAL) Comprehensive Metabolic Panel (02/10/2025 11:37 PM EDT) Only the most recent of7 resultswithin the time period is included. Sodium 137 135 - 145 mmol/L [facility] Potassium 3.9 3.3 - 5.1 mmol/L [facility] Chloride 112(H) 96 - 108 mmol/L [facility] Carbon Dioxide 16(L) 22 - 29 mmol/L [facility] Anion Gap 13 12 - 20 [facility] Urea Nitrogen (BUN) 10 9 - 16 mg/dL [facility] Creatinine, Serum 0.72 0.5 - 1.4 mg/dL [facility] Creatinine Clr Calc Pharmacy 99.6 [facility] Comment:eGFR (calculated fro m the MDRD study equation) and eCrCl(calculated from the Cockcroft-Gault equation) are based ondifferent parameters and may not yield comparable results.If eCrCl result is absurd, please check patient'sheight/weight. Estimated Glomerular Filt Rate >60 [facility] Comment:Chronic Kidney Disea se: Estimated GFR < 60 mL/min/1.25t2Devlzw Kidney Disease: Estimated GFR < 15 mL/min/1.73m2 Glucose 92 60 - 115 mg/dL [facility] Calcium 8.5 8.4 - 10.2 mg/dL [facility] Bilirubin, Total 0.4 0.0 - 1.0 mg/dL [facility] Aspartate Amino Transferase 26 5 - 37 U/L [facility] Alanine Aminotransferase <6 0 - 40 U/L [facility] Total Protein 6.8 6.5 - 8.0 g/dL [facility] Albumin Level 3.2(L) 3.5 - 5.0 g/dL [facility] Alkaline Phosphatase 83 39 - 117 U/L [facility] 02/10/2025 11:3 7 PM EDT 02/10/2025 11:43 PM EDT us Generic External Data Provider LAB BLOOD ORDERAB LES Final Result Performing Organization Address City/[facility]/ZIP Co de Phone Number [facility] [address] [place] [address] [phone] * (ABNORMAL) VENOUS BLOOD GAS (02/08/2025 6:41 PM EDT) Only the most recent of2 resultswithin the time period is included. VBG pH 7.45(H) 7.32 - 7.43 [facility] Comment:METER #: [id number] additional_comment: Cb nsl VBG PCO2 31 mmHg [facility] Comment:METER #: [id number] additional_comment: Cb nsl VBG PO2 43 mmHg [facility] Comment:METER #: [id number] additional_comment: Cb nsl VBG Base Excess -1.0 mmol/L [facility] Comment:METER #: [id number] additional_comment: Cb nsl VBG HCO3 22 22 - 26 mmol/L [facility] Comment:METER #: [id number] additional_comment: Cb nsl O2 Sat, Demetrio 66.0 % [facility] Comment:METER #: [id number] additional_comment: Cb nsl 02/08/2025 6:41 PM EDT 02/08/2025 6:44 PM EDT us Generic External Data Provider LAB BLOOD ORDERAB LES Final Result Performing Organization Address City/[facility]/ZIP Co de Phone Number [facility] [address] [place] [address] [phone] * (ABNORMAL) Lactic Acid (02/08/2025 6:30 PM EDT) Only the most recent of2 resultswithin the time period is included. Lactic Acid 2.9(HH) 0.5 - 2.0 mmol/L [facility] Comment:Critical value for t est(s): LACTIC Results called to gildardo back by: PRACHI Person calling: JENNIE Date: 02/08/25Time: 1858 02/08/2025 6:30 PM EDT 02/08/2025 6:37 PM EDT us Generic External Data Provider LAB BLOOD ORDERAB LES Final Result Performing Organization Address City/State/[facility] Co de Phone Number [facility] [address] [place] [address] [phone] * CTA Chest PE Protocal (02/08/2025 4:12 AM EDT) Anatomical Region Laterality Modality Body, Chest Computed Tomogra phy 02/08/2025 4:12 AM EDT Narrative 02/08/2025 4:15 AM EDT ? [facility] ?[address] ?[place] [address] ? [place] Scan Report ? Signed ? Patient: Delgado,Charbel ?MR#: [id number] ? : 1970 ?Acct:[id number] ? Age/Sex: 55 / M ?ADM Date: /28/25 ? Loc: HO.ED ? Attending Dr: ? Ordering Physician: Alexandria Sweeney MD ?? Date of Service: 02/08/25 ?? Procedure(s): CT angio chest PE protocol ?? Accession Number(s): [id number] ? cc: [facility]; Alexandria Sweeney MD ? Report Number: ?? [id number]: Total DLP = ??260.00 mGy-cm ? CLINICAL [...] DD/ 0412 ? TD/TT: 02/08/25 0412 ? Keyboarding Teacher: ? Procedure Note Moy, Image - 02/08/[address] [place] [address] [address] Scan Report Signed Patient: Isaias Delgado#: [id number] : 1970Acct:[id number] Age/Sex: 55 / MADM Date: 02/07/25 Loc: HO.ED Attending Dr: Ordering Physician: Alexandria Sweeney MD Date of Service: 02/08/25 Procedure(s): CT angio chest PE protocol Accession Number(s): [id number] cc: [facility]; Alexandria Sweeney MD Report Number: [id number]: Total DLP = 260.00 mGy-cm CLINICAL HISTORY: [...] signed by Randal Mendoza MD in OV> 02/08/25 0413 DD/ 0412 TD/TT: 02/08/252 Keyboarding Teacher: [facility] External Provider IMG CT PROCEDURES Edited Result - Final * CT Head w/o Contrast (02/08/2025 4:05 AM EDT) Only the most recent of2 resultswithin the time period is included. Anatomical Region Laterality Modality Head, Neck Computed Tomogra phy 02/08/2025 4:05 AM EDT Narrative 02/08/2025 4:07 AM EDT ? [facility] ?[address] ?[place] [address] ? CT Scan Report ? Signed ? Patient: Delgado,Charbel ?MR#: [id number] ? : 1970 ?Acct:[id number] ? Age/Sex: 55 / M ?ADM Date: 03/28/25 ? Loc: HO.ED ? Attending Dr: ? Ordering Physician: Alexandria Sweeney MD ?? Date of Service: 02/08/25 ?? Procedure(s): CT head/brain wo IV con ?? Accession Number(s): [id number] ? cc: [facility]; Alexandria Sweeney MD ? Report Number: ?? [id number]: Total DLP = ??618.00 mGy-cm ? CLINICAL [...] DD/ 0405 ? TD/TT: 02/08/25 0405 ? Keyboarding Teacher: ? Procedure Note Renato Winter - 02/08/[address] [place] [address] [address] Scan Report Signed Patient: Isaias Delgado#: [id number] : 1970Acct:[id number] Age/Sex: 55 / MADM Date: 02/07/25 Loc: HO.ED Attending Dr: Ordering Physician: Alexandria Sweeney MD Date of Service: 02/08/25 Procedure(s): CT head/brain wo IV con Accession Number(s): [id number] cc: [facility]; Alexandria Sweeney MD Report Number: [id number]: Total DLP = 618.00 mGy-cm CLINICAL HISTORY: [...] in OV> 02/08/25405 DD/ 4 TD/TT: 02/08/25404 Keyboarding Teacher: [facility] External Provider IMG CT PROCEDURES Edited Result - Final * High Sensitivity Troponin I (02/08/2025 1:52 AM EDT) Pathologist [facility] TROPONIN I HIGH SENSITIVITY <2.7 <3.5 - 35.0 ng/L [facility] Comment:The Connolly high sens itivity Troponin-I results should beused in conjunction with other diagnostic information suchas ECG, clinical observations and information, and patientsymptoms to aid in the diagnosis of PA. 02/08/2025 1:52 AM EDT 02/08/2025 1:55 AM EDT Generic External Data Provider LAB BLOOD ORDERAB LES Final Result [facility] [address] [place] [phone] * SARS-CoV-2 RNA, Influenza A/B, and RSV RNA, Ql NAAT (02/08/2025 1:52 AM EDT) Only the most recent of2 resultswithin the time period is included. [facility] Influenza A PCR NEGATIVE Negative [facility] Influenza B PCR NEGATIVE Negative [facility] Resp Syncy Virus RNA Qual PCR NEGATIVE Negative [facility] SARS COV2 PCR NEGATIVE Negative [facility] Comment:All test results mus t [...] use by authorized laboratories.Testing performed on the [employer] GeneXpert utilizingreal-time RT-PCR.All SARS CoV2 and positive influenza A/B results arereported to [facility]. 02/08/2025 1:52 AM EDT 02/08/2025 1:55 AM EDT us Generic External Data Provider LAB MICROBIOLOGY - GENERAL ORDERABLES Final Result [facility] [address] [place] [phone] * (ABNORMAL) Prothrombin Time-INR (02/08/2025 1:52 AM EDT) Only the most recent of2 resultswithin the time period is included. Prothrombin Time 15.3(H) 10.9 - 12.4 SEC [facility] INTERNATIONAL NORM RATIO 1.3(H) 0.9 - 1.1 [facility] Comment:INTERNATIONAL NORMAL IZED RATIO (INR) [...] ORDERAB LES Final Result Performing Organization Address [facility] de Phone Number [facility] [address] [place] [phone] * (ABNORMAL) B Type Natriuretic Peptide (BNP) (02/08/2025 1:52 AM EDT) B Type Natriuretic Peptide 147(H) <100 pg/mL [facility] 02/08/2025 1:52 AM EDT 02/08/2025 1:55 AM EDT Generic External Data Provider LAB BLOOD ORDERAB LES Final Result Performing Organization Address [facility] de Phone Number [facility] [address] [place] [phone] * (ABNORMAL) Ammonia, Plasma (02/08/2025 1:52 AM EDT) Only the most recent of3 resultswithin the time period is included. Ammonia (P) 65(H) 13 - 55 umol/L [facility] 02/08/2025 1:52 AM EDT 02/08/2025 2:03 AM EDT Generic External Data Provider LAB BLOOD ORDERAB LES Final Result Performing Organization Address [facility] de Phone Number [facility] [address] [place] [phone] * Lipase (02/06/2025 12:39 AM EDT) Only the most recent of4 resultswithin the time period is included. Lipase 24 8 - 78 U/L [facility] 02/06/2025 12:3 9 AM EDT 02/06/2025 12:45 AM EDT Generic External Data Provider LAB BLOOD ORDERAB LES Final Result Performing Organization Address [facility]/State/ZIP Co de Phone Number [facility] [address] [place] [phone] [phone] * CT Abdomen Pelvis w/ Contrast (11/29/2024 5:14 AM EST) Anatomical Region Laterality Modality Body, Pelvis, Abdomen Computed T omography 11/29/2024 5:14 AM EST Narrative 11/29/2024 5:16 AM EST ? [facility] ?[address] ?[place] [address] ? CT Scan Report ? Signed ? Patient: Delgado,Charbel ?MR#: [id number] ? : 1970 ?Acct:[id number] ? Age/Sex: 54 / M ?ADM Date: 11/28/24 ? Loc: HO.ED ? Attending Dr: ? Ordering Physician: Trudy Brannon ?? Date of Service: 11/29/24 ?? Procedure(s): CT abdomen pelvis w IV con ?? Accession Number(s): [id number] ? cc: Trudy Brannon; [facility] ? Report Number: ?? [id number]: Total DLP = ??512.00 mGy-cm ? CLINICAL [...] signed by Mary Rogers MD in OV> ?11/29/[address] ? DD/ 3 ? TD/TT: 11/29/24 0514 ? Keyboarding Teacher: ? Procedure Note Donotfernandointerpreter, Image - 11/29/[address] [address] [address] Scan Report Signed Patient: Isaias Delgado#: [id number] : 1970Acct:[id number] Age/Sex: 54 / MADM Date: 11/28/24 Loc: HO.ED Attending Dr: Ordering Physician: Trudy Brannon Date of Service: 11/29/24 Procedure(s): CT abdomen pelvis w IV con Accession Number(s): [id number] cc: Trudy Brannon; [facility] Report Number: [id number]: Total DLP = 512.00 mGy-cm CLINICAL HISTORY: [...] signed by Mary Rogers MD in OV> 11/29/2415 DD/ 3 TD/TT: 11/29/24513 Keyboarding Teacher: [facility] External Provider IMG CT PROCEDURES Edited Result - Final * CT Chest w/ Contrast (11/29/2024 5:14 AM EST) Anatomical Region Laterality Modality Body, Chest Computed Tomogra phy 11/29/2024 5:14 AM EST Narrative 11/29/2024 5:16 AM EST ? [facility] ?[address] ?[place] [address] ? CT Scan Report ? Signed ? Patient: Delgado,Charbel ?MR#: [id number] ? : 1970 ?Acct:[id number] ? Age/Sex: 54 / M ?ADM Date: 11/28/24 ? Loc: HO.ED ? Attending Dr: ? Ordering Physician: Trudy Brannon ?? Date of Service: 11/29/24 ?? Procedure(s): CT chest w IV con ?? Accession Number(s): [id number] ? cc: Trudy Brannon; [facility] ? Report Number: ?? [id number]: Total DLP = ??248.00 mGy-cm ? CLINICAL HISTORY: infection, aspiraion ? CT chest with contrast ? Comparison: None ? Findings: ?? The heart is enlarged with brtz-mc-[place]im[place] coronary calcium. No ?? pericardial effusion. No [...] ?11/29/24 0515 ? DD/ 0514 ? TD/TT: 11/29/2414 ? Keyboarding Teacher: ? Procedure Note Donotuseinterpreter, Image - 11/29/[address] [place] [address] [address] Scan Report Signed Patient: Isaias Delgado#: [id number] : 1970Acct:[id number] Age/Sex: 54 / MADM Date: 11/28/24 Loc: HO.ED Attending Dr: Ordering Physician: Trudy Brannon Date of Service: 11/29/24 Procedure(s): CT chest w IV con Accession Number(s): [id number] cc: Trudy Brannon; [facility] Report Number: [id number]: Total DLP = 248.00 mGy-cm CLINICAL HISTORY: infection, aspiraion CT chest with contrast Comparison: None Findings: The heart is enlarged with vfop-rw-ewqfobwl coronary calcium. No pericardial effusion. No adenopathy. [...] MD in OV> 11/29/24 0515 DD/ TD/TT: 11/29/24513 Keyboarding Teacher: [facility] External Provider IMG CT PROCEDURES Edited Result - Final * XR Foot 3+ Views Right (11/27/2024 2:55 PM EST) Anatomical Region Laterality Modality Lower Extremities, Foot Right Radiogra phic Imaging 11/27/2024 2:55 PM EST Narrative 11/27/2024 3:52 PM EST ? [facility] ?[address] ?[place] [address] ?XRay Report ? Signed ? Patient: DelgadoCharbel jacob ?MR#: [id number] ? : 1970 ?Acct:[id number] ? Age/Sex: 54 / M ?ADM Date: 11/27/24 ? Loc: HO.ED ? Attending Dr: ? Ordering Physician: Bautista Gomes DO ?? Date of Service: 11/27/24 ?? Procedure(s): XR foot RT min 3V ?? Accession Number(s): [id number] ? cc: [facility]; Bautista Gomes DO ? EXAMINATION: ?? [...] DD/ 1455 ? TD/TT: 11/27/24 1542 ? Keyboarding Teacher: ? Procedure Note Donotuseinterpreter, Image - 11/27/[address] [address] XRay Report Signed Patient: Isaias Delgado#: [id number] : 1970Acct:[id number] Age/Sex: 54 / MADM Date: 11/27/24 Loc: HO.ED Attending Dr: Ordering Physician: Bautista Gomes DO Date of Service: 11/27/24 Procedure(s): XR foot RT min 3V Accession Number(s): [id number] cc: [facility]; Bautista Gomes DO EXAMINATION: XR FOOT, [...] 11/27/24 1550 DD/ 1455 TD/TT: 11/27/24 1542 Keyboarding Teacher: us [facility] External Provider IMG XR PROCEDURES Final Result * XR Foot 3+ Views Left (11/27/2024 2:55 PM EST) Anatomical Region Laterality Modality Lower Extremities, Foot Left Radiogra phic Imaging 11/27/2024 2:55 PM EST Narrative 11/27/2024 3:58 PM EST ? [facility] ?[address] ?[place] [address] ?XRay Report ? Signed ? Patient: Delgado,Charbel ?MR#: [id number] ? : 1970 ?Acct:[id number] ? Age/Sex: 54 / M ?ADM Date: 11/27/24 ? Loc: HO.ED ? Attending Dr: ? Ordering Physician: Bautista Gomes DO ?? Date of Service: 11/27/24 ?? Procedure(s): XR foot LT min 3V ?? Accession Number(s): [id number] ? cc: [facility]; Bautista Gomes DO ? EXAMINATION: ?? [...] DD/ 1455 ? TD/TT: 11/27/24 1542 ? Keyboarding Teacher: ? Procedure Note Moy, Renato - 11/27/2024 [facility] [address] [place] [address] XRay Report Signed Patient: Isaias Delgado#: [id number] : 1970Acct:[id number] Age/Sex: 54 / MADM Date: 11/27/24 Loc: HO.ED Attending Dr: Ordering Physician: Bautista Gomes DO Date of Service: 11/27/24 Procedure(s): XR foot LT min 3V Accession Number(s): [id number] cc: [facility]; Bautista Gomes DO EXAMINATION: XR FOOT, [...] 11/27/24 1555 DD/ 1455 TD/TT: 11/27/24 1542 Keyboarding Teacher: [facility] External Provider IMG XR PROCEDURES Final Result * XR Ankle 3+ Views Right (11/27/2024 2:55 PM EST) Anatomical Region Laterality Modality Lower Extremities, Ankle Right Radiogr aphic Imaging 11/27/2024 2:55 PM EST Narrative 11/27/2024 3:55 PM EST ? [facility] ?[address] ?[place] [address] ?XRay Report ? Signed ? Patient: Delgado,Charbel ?MR#: [id number] ? : 1970 ?Acct:[id number] ? Age/Sex: 54 / M ?ADM Date: 01/15/25 ? Loc: HO.ED ? Attending Dr: ? Ordering Physician: Bautista Gomes DO ?? Date of Service: 11/27/24 ?? Procedure(s): XR ankle RT min 3V ?? Accession Number(s): [id number] ? cc: [facility]; Bautista Gomes DO ? EXAMINATION: ?? [...] Peripheral arterial disease. ? Electronically signed by: ??rEic Steele MD ??11/27/2024 03:52 PM ?? EST RP ? Dictated By: ?Eric Nobles MD ? Signed By: ?<Electronically signed by Eric Kwon MD in OV> ? 11/27/24 1552 ? DD/ 1455 ? TD/TT: 11/27/24 1542 ? Keyboarding Teacher: ? Procedure Note Moy, Image - 11/27/2024 [place] [address] XRay Report Signed Patient: Isaias Delgado#: [id number] : 1970Acct:[id number] Age/Sex: 54 / MADM Date: 11/27/24 Loc: HO.ED Attending Dr: Ordering Physician: Bautista Gomes DO Date of Service: 11/27/24 Procedure(s): XR ankle RT min 3V Accession Number(s): [id number] cc: [facility]; Bautista Gomes DO EXAMINATION: XR ANKLE, [...] 11/27/24 1552 DD/ 1455 TD/TT: 11/27/24 1542 Keyboarding Teacher: [facility] External Provider IMG XR PROCEDURES Final Result * XR Ankle 3+ Views Left (11/27/2024 2:55 PM EST) Anatomical Region Laterality Modality Lower Extremities, Ankle Left Radiogr aphic Imaging 11/27/2024 2:55 PM EST Narrative 11/27/2024 3:56 PM EST ? [facility] ?[address] ?[place] [address] ?XRay Report ? Signed ? Patient: Charbel Delgado ?MR#: [id number] ? : 1970 ?Acct:[id number] ? Age/Sex: 54 / M ?ADM Date: 11/27/24 ? Loc: HO.ED ? Attending Dr: ? Ordering Physician: Bautista Gomes DO ?? Date of Service: 11/27/24 ?? Procedure(s): XR ankle LT min 3V ?? Accession Number(s): [id number] ? cc: [facility]; Bautista Gomes DO ? EXAMINATION: ?? [...] DD/ 1455 ? TD/TT: 11/27/24 1542 ? Keyboarding Teacher: ? Procedure Note Donothennater, Image - 11/27/2024 [place] [address] XRay Report Signed Patient: Isaias Delgado#: [id number] : 1970Acct:[id number] Age/Sex: 54 / MADM Date: 11/27/24 Loc: HO.ED Attending Dr: Ordering Physician: Bautista Gomes DO Date of Service: 11/27/24 Procedure(s): XR ankle LT min 3V Accession Number(s): [id number] cc: [facility]; Bautista Gomes DO EXAMINATION: XR ANKLE, [...] 11/27/24 1553 DD/ 1455 TD/TT: 11/27/24 1542 Keyboarding Teacher: [facility] External Provider IMG XR PROCEDURES Final Result from Last [address] [place] [address] STANDARD HS PARTIAL
--- OUTSIDE RECORDS SUMMARY | 2025-02-22 19:00 | XMS_ITS | Data Portability ---
Author Organization [facility], Main Office Address [address] [place] [address] [address] [place] [address] Care Team Providers Care Manager Audio Name Role Phone [facility] ([facility] OTHER Assessment Encounter [...] Address Organization Details Recorded Time Alcohol abuse 96759083 Active 2022 HALEY WYATT [address] [facility], [address], [place], [address], [facility] 3 16:10:20 Alcoholic cirrhosis 175511969 Active 2022 HALEY WYATT [address] [facility], [address], [place], [address], [facility] 3 16:10:32 Anemia 823050300 Active 2022 HALEY WYATT [address] [facility], [address], [place], [address], [facility] 3 16:10:45 Hepatic encephalop athy 11041175 Active 2022 HALEY WYATT [address] [facility], [address], [place], [address], [facility] 3 16:11:37 Acute respirator y failure 06986430 Active 2022 HALEY WYATT [address] [facility], [address], [place], [address], [facility] 3 16:12:23 Laboratory finding abnormal Active 2022 hypokalemi a hypomagnes ium pancytopen ua repleted in acute care. mag oxide 400 mg BID HALEY WYATT [address] [facility], [address], [place], [address], [facility] 3 16:40:30 Congestive heart failure 21071398 Active 2022 HALEY WYATT [address] [facility], [address], [place], [address], [facility] 3 16:25:07 Homeless 84569061 Active 2022 ANDREYHALEY GASPAR [address] [facility], [address], [place], [address], [facility] 3 16:55:00 Pancytopen ia 566165828 Active 2022 ANDREYHALEY GASPAR [address] [facility], [address], [place], [address], [facility] 3 21:48:09 Esophageal varices 17656802 Active 2022 HALEY WYATT [address] [facility], [address], [place], [address], [facility] 3 16:19:34 Problem Notes None recorded. [...] 110 mm[Hg] 70 mm[Hg] Lis Oconnell MD [address] [place] [address], [facility] [address], [place], [address], [facility] 4 08:21:06 Date Recorded Heart rate Respiratory rate Body temperature Oxygen saturation Oxygen saturation in Arterial blood by Pulse oximetry Systolic blood pressure Diastolic blood pressure Provider Name and Address Organization Details Last Updated DateTime 4 67 /min 16 /min 97.6 [degF] 95 % 95 % 107 mm[Hg] 66 mm[Hg] BRADY HOGAN NP [address] [facility], [address], [place], [address], [facility] 4 10:20:23 Social History Question Answer Notes LastModified by Organizat ion Details LastModified Time Tobacco Smoking Status Former Smoker ANDREY RODRIGUEZHALEY CRUZ [address] [facility], [address], [place], [address], [facility] 09/12/2023 16:57:06 Do You Have An [...] Do You Have A Medical Power Of Cloth Colors Examiner? No HCP/brother Information not available 09/12/2023 What [...] mcg/0.3 mL dose 3 completed Mojgan jain [facility] 11/10/2023 13:12:58 Tdap 1 completed Mojgan jain [facility] 03/01/2024 11:01:29 Td (adult), 5 Lf tetanus toxoid, preservative free, adsorbed 7 completed Mojgan jain [place] - [facility] 03/01/2024 11:06:00 Past Encounters Encounter ID Performer Location Encounter Start Date Encounter Closed Date Diagnosis/Indication Diagnosis SNOMED-CT Code Diagnosis ICD10 Code Diagnosis Note [id number] HALEY WYATT [facility] on [address] [place] [address] 09/12/2023 08:36:44 09/15/2023 08:04:55 Hepatic encephalopathy 81302473 K76.82 resolved in acute care/see hpistarted on lactuloser ifaximin 550 mg BIDlactulo se 40 g TID. Acute resp iratory failure 08109593 J96.00 with hypoxia d/t to acute on chronic heart failure-di uresed w/IV lasix resolved in acute care Anemia 621237047 D64.9 see hpiCT scan with distal esophageal varices.- EGD suspected gastric varies as source of bleedfollo w up with GI in 4 weeks for repeat EGD Congestive heart failure 87759160 I50.9 with preserved ejection fractionCT scan showed small plueral effusionCX R with bibasilar opacitiesc ontinue furosemide 20 mg BIDcontinu e spironolac tone 12.5 mg BIDlow salt diet.monit or weight Alcohol abuse 29766284 F 10.10 with acute withdrawal in acute care tx with phenobarbi germania taper.decl ined recovery support in acute carethiami ne 100 mg dailyfolic acid 1 mg daily Bleeding g astric varices 26045257 I86.4 source of anemiaomep razole [address] dailysucra lfate 1 gm BIDcontinu e PPI and sucralfate Homeless 38737848 Z59.00 Social service refer for community resources. [id number] Lis Oconnell MD [facility] on [address] [place] [address] 09/13/2023 05:12:10 09/15/2023 08:33:31 Acute on chronic diastolic heart failure 209221007 I50.33 improved:s pironolact one 12.5 mg bidfurosem eliana 20 mg bidwill monitor Alcohol abuse 74954713 F 10.10 thiamine 100 mg dailyfolic acid 1 gm dailyinter disciplina ry support for sobrietywi ll monitor and support as needed Bleeding e sophageal varices 65783646 I85.01 s/p blood transfusio ns, octeotride , banding/he mospray:om eprazole 40 mg dailysucra lfate 1 gm bidwill monitor Alcoholic cirrhosis 4200 41580 K70.31 Xifaxan 550 mg bidspirono lactone 12.5 mg bidfurosem eliana 20 mg bidwill monitor Hepatic encephalopathy 33304319 K76.82 lactulose 40 gm tidwill monitor [id number] HALEY WYATT [facility] on [address] [place] [address] 09/18/2023 11:37:36 09/20/2023 15:12:00 Congestive heart failure 29744065 I50.9 continue furosemide 20 mg BIDcontinu e spironolac tone 12.5 mg BIDlow salt diet.monit or weight Alcohol abuse 21308520 F 10.10 will consider acamprosta te 666 mg TID.thiami ne 100 mg dailyfolic acid 1 mg daily Bleeding g astric varices 42546310 I86.4 source of anemiaomep razole [address] dailysucra lfate 1 gm BIDcontinu e PPI and sucralfate Hepatic encephalopathy 81220597 K76.82 resolved in acute care/see hpistarted on lactuloser ifaximin 550 mg BIDlactulo se 40 g TID.- reports loose stool x's 1 daily. will continue to monitor for now . [id number] HALEY WYATT [facility] on [address] [place] [address] 10/06/2023 10:25:53 10/18/2023 12:16:47 Altered mental status 227953170 R41.82 see hpiconcern for hepatic encephalop athy due to hxsend to ER for further evaluation [id number] HALEY WYATT [facility] on [address] [place] [address] 10/12/2023 13:49:36 10/18/2023 15:10:16 Hepatic encephalopathy 83083781 K76.82 resolved in acute care/see hpiimaging with no acute processCon tinue lactulose, rifaximin, Lasix, spironolac toneFollow -up outpatient GI Congestive heart failure 52012770 I50.9 continue furosemide 20 mg BIDcontinu e spironolac tone 12.5 mg BIDlow salt diet.monit or weight Pancytopenia 604149675 D 61.818 wbc 3.41-Hgb 7.3-HCT 23.2Possib ly due to alcohol abuseWill continue to monitor CBC [id number] HALEY WYATT [facility] on [address] [place] [address] 10/16/2023 13:03:21 11/22/2023 15:10:28 Hepatic encephalopathy 29192328 K76.82 resolved in acute care/see hpiimaging with no acute processCon tinue lactulose, rifaximin, Lasix, spironolac toneFollow -up outpatient GI Congestive heart failure 36027839 I50.9 continue furosemide 20 mg BIDcontinu e spironolac tone 12.5 mg BIDlow salt diet.monit or weight Pancytopenia 095418318 D 61.818 see aboveimpro kiki hgb 8.8- Plt 68Possibly due to alcohol abuseWill continue to monitor CBC [id number] HALEY WYATT [facility] on [address] [place] [address] 10/24/2023 11:18:12 11/03/2023 11:47:28 Hepatic encephalopathy 75760893 K76.82 alert and oriented x's 2 today unsure of date.resol kiki in acute care/see hpiimaging with no acute processCon tinue lactulose, rifaximin, Lasix, spironolac toneFollow -up outpatient GI Congestive heart failure 04377477 I50.9 Stablke, no reported sxcontinue furosemide 20 mg BIDcontinu e spironolac tone 12.5 mg BIDlow salt diet.monit or weight Pain of le ft shoulder joint 9621212498 8226546 M25.512 see hpixray 3 viewstylen ol 975 mg scheduledm otrin 600 mg scheduled. PT referral for pain with abduction. [id number] HALEY WYATT [facility] on [address] [place] [address] 10/27/2023 09:08:50 11/03/2023 12:28:46 Hepatic encephalopathy 94305094 K76.82 appears to be a baseline status, however he appears disoriente d at times.Cont inue lactulose, rifaximin, Lasix, spironolac toneFollow -up outpatient GI Congestive heart failure 30961392 I50.9 Stablecont inue furosemide 20 mg BIDcontinu e spironolac tone 12.5 mg BIDlow salt diet.monit or weight Pain of le ft shoulder joint 4786415590 7044007 M25.512 Xray completed, results reviewed with patient: Mild degenerati on of the left shoulder; no acute fracture or dislocatio n. continue with:tylen ol 975 mg scheduledm otrin 600 mg scheduled. PT referral for pain with abduction. [id number] HALEY WYATT [facility] on [address] [place] [address] 11/08/2023 08:13:22 11/22/2023 16:43:01 [place]-Zee tear 152186987 K22.6 2 days of melena with coffee-kell und emesis on presentati on.GI consulted and performed upper endoscopy on 10/31, evidence of daisy zee tear, gastric ulcers s/p clip placement. continue PPI omeprazole 40 mg twice daily.Carv edilol started as per recommenda tions for esophageal varicesPat ient was advised to avoid NSAID Esophageal varices 80118 008 I85.00 Started on carvedilol 6.25 mg bidomepraz ole 40 mg bidsucralf ate 1 gm BID Anemia 163162667 D64.9 Hgb 6.4 on presentati on to acute careDue to upper GI bleed,Rece ived 3 units of PRBC in acute careCarved ilol started for varices [id number] HALEY WYATT [facility] on [address] [place] [address] 11/14/2023 07:57:53 12/01/2023 10:08:54 [place]-Zee tear 077289328 K22.6 11/14 there has been no reported couging and vomiting. 2 days of melena with coffee-kell und emesis on presentati on.GI consulted and performed upper endoscopy on 10/31, evidence of daisy zee tear, gastric ulcers s/p clip placement. continue PPI omeprazole 40 mg twice daily.Carv edilol started as per recommenda tions for esophageal varicesPat ient was advised to avoid NSAID Esophageal varices 92866 008 I85.00 stableStar forrest on carvedilol 6.25 mg bidomepraz ole 40 mg bidsucralf ate 1 gm BID Anemia 506179320 D64.9 11/14will recheck labspatien t denies excess fatigue, weakness, shortness of breathdoes not appear pale, color normal. Hgb 6.4 on presentati on to acute careDue to upper GI bleed,Rece ived 3 units of PRBC in acute careCarved ilol started for varices [id number] HALEY WYATT [facility] on [address] [place] [address] 11/17/2023 08:07:13 12/01/2023 11:37:06 [place]-Zee tear 789191601 K22.6 stable, There has been no new reported sx.2 days of melena with coffee-kell und emesis on presentati on.GI consulted and performed upper endoscopy on 10/31, evidence of daisy zee tear, gastric ulcers s/p clip placement. continue PPI omeprazole 40 mg twice daily.Carv edilol started as per recommenda tions for esophageal varicesPat ient was advised to avoid NSAID Esophageal varices 60686 008 I85.00 stableStar forrest on carvedilol 6.25 mg bidomepraz ole 40 mg bidsucralf ate 1 gm BID Anemia 434675435 D64.9 11/15: hgb 8.0 hct 25.6will recheck labs Hgb 6.4 on presentati on to acute careDue to upper GI bleed,Rece ived 3 units of PRBC in acute careCarved ilol started for varices [id number] Lis Oconnell MD [facility] on [address] [place] [address] 11/24/2023 08:20:43 11/29/2023 17:59:33 Alcohol abuse 44591706 F10.10 thiamine 100 mg dailyfolic acid 1 gm dailyMVI dailyacamp rosate 666 mg tidinterdi sciplinary support for sobrietywi ll monitor and support as needed Upper gastrointestinal bleeding 91011603 K92.89 with history varices, [place] Zee tear:sucra lfate 1 gm bidomepraz ole 40 mg [id number] monitoravo id NSAIDs Alcoholic cirrhosis 4200 72466 K70.31 Xifaxan 550 mg bidspirono lactone 12.5 mg bidfurosem eliana 20 mg dailylactu lose 40gm tidwill monitor Esophageal varices 95261 008 I85.00 see meds for history UGI bleed:also carvedilol 6.25 mg bidwill monitor [id number] BRADY HOGAN NP [facility] on [address] [place] [address] 11/28/2023 09:53:56 12/01/2023 12:57:26 Alcohol abuse 12869859 F10.10 thiamine 100 mg dailyfolic acid 1 gm dailyMVI dailyacamp rosate 666 mg tidinterdi sciplinary support for sobrietywi ll monitor and support as needed Upper gastrointestinal bleeding 63487804 K92.89 with history varices, Daisy Zee tear:sucra lfate 1 gm bidomepraz ole 40 mg [id number] monitoravo id NSAIDs Alcoholic cirrhosis 4200 76197 K70.31 Xifaxan 550 mg bidspirono lactone 12.5 mg bidfurosem eliana 20 mg dailylactu lose 40gm tidwill monitor Esophageal varices 05772 008 I85.00 see meds for history UGI bleed:carv edilol 6.25 mg bidwill monitor Health Concerns Section Related Observation LastModified by Organization Detai ls LastModified Time None Recorded Concern Status LastModified by Organization Details LastModified Time None Recorded Advance Directives Directive Y: Payers Encounter Date Sequence Insurance Name Policy Number Policy Yip Covered Member ID Yip Member ID Guarantor Name 11/08/2023 1 [place] [facility] Charbel Delgado [id number] Charbel Delgado 11/14/2023 1 [place] [facility] Charbel Delgado [id number] Charbel Delgado 11/17/2023 1 [place] [id number] Charbel Delgado 11/24/2023 1 [place] [facility] [id number] Charbel Delgado 11/28/2023 1 [place] [facility] [id number] Charbel Delgado Notes Date Note Type Note [...] a few weeks. Molst: HALEY Cummings [address] [facility], [address], [place], [address], [facility] 11/08/2023 16:31:23 11/14/2023 text/html Patient is 53-ye ar-old male seen today for acute rounding visit. Today he is stable, he was sent to ED on 11/09 for hgb noted 7.0 and had repeat labs in ED hgb 8.1. He returned to [facility] the same evening and has been stable. [...] in a few weeks. HALEY WYATT [address] [facility], [address], [place], [address], [facility] 11/14/2023 21:53:05 11/17/2023 text/html Patient is [...] no acute nursing concerns. HALEY WYATT [address] [facility], [address], [place], [address], [facility] 11/17/2023 13:21:44 11/24/2023 text/html This 53 year old male fdc care resident is seen today for routine rounding visit and acute rounding visit. Medical history is remarkable for history of alcohol use disorder with alcoholic cirrhosis, HFpEF, hypertension, ADHD, anxiety, depression Patient was sent out of facility to ER at [facility] on 10/30/23 with melena and coffee-ground [...] full code assumed Lis Oconnell MD [address] [facility], [address], [place], [address], [facility] 11/24/2023 12:23:26 11/28/2023 text/html seen today for a cute rounding visit, CAOx3 he is complaining about being bored, independent in room, gait steady, mood stable, staff report no concerns BRADY HOGAN NP [address] [facility], [address], [place], [address], [facility] 11/28/2023 10:23:34
--- OUTSIDE RECORDS SUMMARY | 2025-02-22 19:00 | XMS_ITS | Encounter Summary ---
Author Organization [facility] Address [address] [place] [address] Care Team Providers Care Checkering Machine Adjuster Name Role Phone Unavailable Primary Care Provider Unavailabl e Reason for Visit * Reason Comments Care Coordination C3/CM Outreach Encounter Details Date Type Department Care Team (Latest Contact Info) Description 02/21/2025 Patient Outreach [facility] [address] [place] [address] [phone] Santosh Daley MD [address] [place] [address] [phone] Care Coordination (C3/CM Outreach) Social History Tobacco Use Types Packs/Day Years Used Date Smoking Tobacco: Never Assessed Sex and Gender Information Value Date Recorded Sex Assigned at Male 11/23/2022 11:29 AM EST Legal Sex Male 11:26 AM EST Gender Identity Male 11/23/2022 11:29 AM EST Sexual Orientation Straight 01/11/2024 8: 14 AM EST documented as of this encounter Progress Notes * Kiki Mims - 02/21/2025 1:42 PM EDT CHW Kiki Mims , placed outbound call to patient in regards to offer services. CHW introducing herself from [facility] CM Department with CHW's name, department and direct contact [phone] requesting call back. Will re-attempt to contact within 5 days. and address not confirmed. documented in this encounter Plan of Treatment Upcoming Encounters Date Type Department Care Team (Late st Contact Info) Description 05/02/2025 10:00 AM EDT Office Visit [facility] [address] [place] [id number] Misti Murry MD [address] [place] [address] [place] [address] documented as of this encounter Visit Diagnoses Not on filedocumented in this encounter
--- OUTSIDE RECORDS SUMMARY | 2025-02-22 19:00 | XMS_ITS | Encounter Summary ---
Author Organization [employer] [facility] Address [address] [place] [address] Care Team Providers Care Regional Operations Director Name Role Phone Unavailable Primary Care Provider Unavailabl e Encounter Details Date Type Department Care Team (Late st Contact Info) Description 02/21/2025 Orders Only GENERIC EXTERNAL DATA [...] Description 05/02/2025 10:00 AM EDT Office Visit [facility] MED[facility]INE [address] [place] [address] Misti Murry MD [address] [place] [address] documented as of this encounter Procedures Procedure Name Priority Date/Time Associated Diagnosis Comments ETHANOL Routine 02/21/2025 8:07 PM EDT DRUG MONITOR, PANEL 1, SCREEN, URINE Routine 02/21/2025 8:07 PM EDT CBC WITH AUTO DIFFERENTIAL Routine 02/21/2025 8:07 PM EDT HEPATIC FUNCTION PANEL Routine 02/21/2025 8:07 PM EDT BASIC METABOLIC PANEL Routine 02/21/2025 8:07 PM EDT documented in this encounter Results * Ethanol (02/21/2025 8:07 PM EDT) ETHANOL (MG/DL) IN SER/PLAS 214 mg/dL [facility] Comment:Serum/plasma ethanol results are to be used formedical/treatment purposes only. 02/21/2025 8:07 PM EDT 02/21/2025 8:10 PM EDT us Generic External Data Provider LAB BLOOD ORDERAB LES Final Result [facility] [address] [place] [phone] * (ABNORMAL) Basic Metabolic Panel (02/21/2025 8:07 PM EDT) Sodium 142 135 - 145 mmol/L [facility] Potassium 4.3 3.3 - 5.1 mmol/L [facility] Chloride 118(H) 96 - 108 mmol/L [facility] Carbon Dioxide 17(L) 22 - 29 mmol/L [facility] Anion Gap 11(L) 12 - 20 [facility] Urea Nitrogen (BUN) 17(H) 9 - 16 mg/dL [facility] Creatinine, Serum 0.75 0.5 - 1.4 mg/dL [facility] Creatinine Clr Calc Pharmacy 84.6 [facility] Comment:eGFR (calculated fro m the MDRD study equation) and eCrCl(calculated from the Cockcroft-Gault equation) are based ondifferent parameters and may not yield comparable results.If eCrCl result is absurd, please check patient'sheight/weight. Estimated Glomerular Filt Rate >60 [facility] Comment:Chronic Kidney Disea se: Estimated GFR < 60 mL/min/1.73x8Cmttge Kidney Disease: Estimated GFR < 15 mL/min/1.73m2 Glucose 88 60 - 115 mg/dL [facility] Calcium 8.5 8.4 - 10.2 mg/dL [facility] 02/21/2025 8:07 PM EDT 02/21/2025 8:10 PM EDT Generic External Data Provider LAB BLOOD ORDERAB LES Final Result Performing Organization Address [facility] Co de Phone Number [facility] [address] [place] [phone] * Hepatic Function Panel (02/21/2025 8:07 PM EDT) Bilirubin, Total 0.3 0.0 - 1.0 mg/dL [facility] Bilirubin, Direct 0.2 0.0 - 0.5 mg/dL [facility] Aspartate Amino Transferase 33 5 - 37 U/L [facility] Alanine Aminotransferase 10 0 - 40 U/L [facility] Total Protein 7.4 6.5 - 8.0 g/dL [facility] Albumin Level 3.5 3.5 - 5.0 g/dL [facility] Alkaline Phosphatase 104 39 - 117 U/L [facility] 02/21/2025 8:07 PM EDT 02/21/2025 8:10 PM EDT Generic External Data Provider LAB BLOOD ORDERAB LES Final Result Performing Organization Address [facility] de Phone Number [facility] [address] [place] [phone] * (ABNORMAL) Drug Monitoring, Panel 1, Screen, Urine (02/21/2025 8:07 PM EDT) Opiate Screen Urine Not Detected Not Detect [facility] Comment:Opiate cut-off is 30 0 ng/mL.Positive results are unconfirmed and should not be used fornon-medical purposes. Barbiturates, Urine POSITIVE(A) Not Detect [facility] Comment:Barbiturate cut-off is 200 ng/mL.Positive results are unconfirmed and should not be used fornon-medical purposes. Phencyclidine Screen Urine Not Detected Not Detect [facility] Comment:Phencyclidine cut-of f is 25 ng/mL.Positive results are unconfirmed and should not be used fornon-medical purposes. Amphetamine Screen Urine Not Detected Not Detect [facility] Comment:Amphetamine cut-off is 1000 ng/mL.Positive results are unconfirmed and should not be used fornon-medical purposes. Benzodiazepines Screen Urine Not Detected Not Detect [facility] Comment:Benzodiazepine cut-o ff is 200 ng/mL.Positive results are unconfirmed and should not be used fornon-medical purposes. Cocaine Screen Urine Not Detected Not Detect [facility] Comment:Cocaine cut-off is 3 00 ng/mL.Positive results are unconfirmed and should not be used fornon-medical purposes. Cannabinoid Screen Urine Not Detected Not Detect [facility] Comment:Cannabinoid cut-off is 50 ng/mL.Positive results are unconfirmed and should not be used fornon-medical purposes. Methadone Screen, Urine Not Detected Not Detect ng/mL [facility] Comment:Methadone cut-off is 300 ng/mL.Positive results are unconfirmed and should not be used fornon-medical purposes. FENTANYL URINE Not Detected Not Detect [facility] Comment:Fentanyl cut-off is 1 ng/mL.Positive results are unconfirmed and should not be used fornon-medical purposes. Oxycodone Urine Screen Not Detected Not Detect ng/mL [facility] Comment:Oxycodone cut-off is 100 ng/mL.Positive results are unconfirmed and should not be used fornon-medical purposes. Buprenorphine Screen Not Detected Not Detect ng/mL [facility] Comment:Buprenorphine cut-of f is 5 ng/mL.Positive results are unconfirmed and should not be used fornon-medical purposes. 02/21/2025 8:07 PM EDT 02/21/2025 8:10 PM EDT us Generic External Data Provider LAB URINE ORDERAB LES Final Result [facility] [address] [place] [phone] [phone] * (ABNORMAL) CBC auto differential (02/21/2025 8:07 PM EDT) Pathologist [facility] White Blood Count 3.3(L) 4.8 - 10.8 X10*3/uL [facility] Red Blood Count 2.60(L) 4.60 - 5.80 X10*6/uL [facility] Hemoglobin 7.8(L) 14.0 - 18.0 g/dl [facility] Hematocrit 23.9(L) 42.0 - 52.0 % [facility] Mean Corpuscular Volume 91.9 80.0 - 98.0 fL [facility] Mean Corpuscular Hemoglobin 30.0 27.0 - 33.0 pg [facility] Mean Corpuscular HGB Conc 32.6 31.0 - 36.0 g/dl [facility] Red Cell Distribution Width 14.6 11.0 - 16.0 % [facility] Platelet Count 73(L) 160 - 400 X10*3/uL [facility] Mean Platelet Volume 10.8 9.4 - 12.4 fL [facility] Neutrophils Percent Auto 49.3 45 - 73 % [facility] Imm Gran Pct Auto 0.3 0.0 - 0.4 % [facility] Lymphocytes Percent Auto 35.5 20 - 40 % [facility] Monocytes Percent Auto 11.6(H) 2 - 11 % [facility] Eosinophils Percent Auto 2.4 0 - 4 % [facility] Basophils Percent Auto 0.9 0 - 2 % [facility] NRBC Pct Auto 0.0 0.0 - 0.2 /100WBC [facility] Neutrophils Absolute Auto 1.6(L) 2.0 - 8.3 x10*3/uL [facility] Imm Gran Abs Auto 0.01 0.00 - 0.03 X10*3/uL [facility] Lymphocytes Absolute Auto 1.2 1.2 - 4.9 X10*3/uL [facility] Monocytes Absolute Auto 0.4 0.1 - 1.2 X10*3/uL [facility] Eosinophils Absolute Auto 0.1 0.0 - 0.4 X10*3/uL [facility] Basophils Absolute Auto 0.0 0.0 - 0.2 X10*3/uL [facility] NRBC Abs Auto 0.000 0.0 - 0.012 X10*3/uL [facility] 02/21/2025 8:07 PM EDT 02/21/2025 8:10 PM EDT us Generic External Data Provider LAB BLOOD ORDERAB LES Final Result Performing Organization Address City/State/[facility] Co de Phone Number [facility] [address] [place] [phone] documented in this encounter Visit Diagnoses Not on filedocumented in this encounter
--- OUTSIDE RECORDS SUMMARY | 2025-02-22 19:00 | XMS_ITS | Encounter Summary ---
Author Organization [employer] [facility] Address [address] [place] [address] Care Team Providers Care Senior Ui Web Developer Name Role Phone Unavailable Primary Care Provider Unavailabl e Encounter Details Date Type Department Care Team (Late st Contact Info) Description 02/19/2025 Patient Outreach [facility] [address] [place] [address] Missy Milner RN [address] [place] [address] Social History Tobacco Use Types Packs/Day Years [...] 10:00 AM EDT Office Visit [facility] MEDICINE [address] [place] [address] Misti Murry MD [address] [place] [address] documented as of this encounter Visit Diagnoses Not on filedocumented in this encounter
--- OUTSIDE RECORDS SUMMARY | 2025-02-22 19:00 | XMS_ITS ---
Author Organization [employer] [facility] Address [address] [place] [address] Care Team Providers Care Safety Person Name Role Phone Unavailable Primary Care Provider Unavailabl e CHW Complex Status:Outreach In Progress (Enrolling) Start date:02/05/2025 Enrollment reason:ADT Feed Overview ED- Pt went to [facility] ED on 02/04/25. Case Team Name Relationship Phone Kiki Mims (Responsible Staff) Continued Care and Services Coordination
--- OUTSIDE RECORDS SUMMARY | 2025-02-22 19:00 | XMS_ITS | Encounter Summary ---
Author Organization [employer] [facility] Address [address] [place] [address] Care Team Providers Care Laser Beam Machine Operator Name Role Phone Unavailable Primary Care Provider Unavailabl e Encounter Details Date Type Department Care Team (Late st Contact Info) Description 02/11/2025 Orders Only [facility] External Provider, [facility] Social History Tobacco Use Types Packs/Day [...] AM EDT T/C to pt to review [facility] walk-in clinic if pt is in need of follow-up help. Pt is not an [facility] patientat this time but has upcoming new patient appointment with Dr. Murry in April. No answer left voicemail to return call to [facility]. Pt to F/U PRN documented in this encounter Plan of Treatment Upcoming Encounters Date Type Department Care Team (Late st Contact Info) Description 05/02/2025 10:00 AM EDT Office Visit [facility] MEDICINE [address] [place], [place] [phone] Misti Murry MD [address] [place] [address] documented as of this encounter Procedures Procedure Name Priority Date/Time Associated Diagnosis Comments XR CHEST 1 VIEW Routine 02/11/2025 11:05 AM EDT documented in this encounter Results * XR Chest 1 View (02/11/2025 11:05 AM EDT) Anatomical Region Laterality Modality Chest Radiographic Lamar ging 02/11/2025 11:0 5 AM EDT Narrative 02/11/2025 11:19 AM EDT ? [facility] ?[address] ?[place] [address] ?XRay Report ? Signed ? Patient: Delgado,Charbel ?MR#: [id number] ? : 1970 ?Acct:[id number] ? Age/Sex: 55 / M ?ADM Date: 02/11/25 ? Loc: HO.S3 ?370-1 ? Attending Dr: Rolan Baker MD ? Ordering Physician: Rolan Baker MD ?? Date of Service: 02/11/25 ?? Procedure(s): XR chest 1V ?? Accession Number(s): [id number] ? cc: [facility]; Rolan Baker MD ? EXAMINATION: ??XR [...] DD/ 1105 ? TD/TT: 02/11/25 1111 ? 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
--- NOTE | 2025-02-22 20:09 | ED_ITS ---
HPI - General Adult General Chief complaint: ETOH/Substance Use Stated complaint: Etoh,Back pain Time Seen by Provider: 02/22/25 19:26 Source: patient, RN notes reviewed and old records reviewed Mode of arrival: EMS Limitations: no limitations History of Present Illness ED Provider: Chapis HPI narrative: 55-year-old male presents for evaluation of acute alcohol intoxication, chronic back pain and chronic ankle pain. Patient reports that when he walks all day he has pain mostly to his ankle but also some back pain He denies any recent falls or injuries He admits to drinking alcohol today Patient has a documented old right ankle fracture. Patient was discharged shows facility on 02/18/2025 after being admitted for pneumonia and CHF. He was treated with Zosyn and discharged with Levaquin. It was unclear if he has continuing his medications but he has continued drinking a few was p.m. this hospital several times in the last few days for acute alcohol intoxication. He generally agrees to going to detox within when he starts to sober up changes his mind and no longer wishes to go to detox. Related Data Home Medications ?Medication ?Instructions ?Recorded ?Confirmed lactulose 10 gram/15 mL oral 30 ml PO TID 02/01/25 02/15/25 solution omeprazole 40 mg capsule,delayed 40 mg PO DAILY@0630 02/01/25 02/15/25 release Previous Rx's ?Medication ?Instructions ?Recorded acetaminophen 325 mg tablet 975 mg (3 x 325 mg) PO Q6H PRN 12/17/24 Pain, Mild 1-3,Fever,Headache #30 tabs magnesium oxide 400 mg (241.3 mg 400 mg PO DAILY #30 tabs 12/17/24 magnesium) tablet sodium chloride 0.65 % nasal spray 1 spray intranasal Q1H PRN Dryness 12/17/24 aerosol (Deep Sea Nasal) #44 mL sucralfate 1 gram tablet (Carafate) 1 g PO BID #60 tabs 12/17/24 folic acid 1 mg tablet 1 mg PO DAILY #90 tabs 02/04/25 thiamine mononitrate (vit B1) 100 100 mg PO DAILY #90 tabs 02/04/ mg tablet spironolactone 25 mg tablet 25 mg PO DAILY #90 tabs 02/13/25 levofloxacin 750 mg tablet 750 mg PO Q24H #7 tabs 02/18/25 Allergies Allergy/AdvReac Type Severity Reaction Status Date / Time No Known Allergies Allergy Verified 02/22/25 18:49 [No Known Allergies*] Review of Systems Constitutional: Constitutional: Denies body ache(s), Denies chills, Denies fever(s) and Denies headache(s) Eyes: Eyes: Denies blurry vision ENT: Denies dysphagia, Denies vertigo, Denies dizziness and Denies headache(s) Cardiovascular: Cardiovascular: Denies chest pain and Denies dyspnea Respiratory: Respiratory: Denies cough and Denies dyspnea Gastrointestinal: Gastrointestinal: Denies abdominal pain, Denies dysphagia and Denies vomiting Musculoskeletal: Musculoskeletal: Reports back pain, Reports arthralgias, Denies joint swelling and Denies limited range of motion Integumentary/Breasts: Skin/Breast: Denies rash and Denies wounds Neurologic: Denies vertigo, Denies dizziness and Denies headache(s) [facility] Past Medical History Medical History Alcohol abuse Acute hypoxemic respiratory failure Anemia Alcohol use disorder Pneumonia Alcohol withdrawal syndrome Pancytopenia Alcohol abuse Thrombocytopenia Esophageal varices Acute on chronic anemia Alcoholic liver disease Aspiration pneumonia Thrombocytopenia Malnutrition CHF (congestive heart failure) Anemia Hypomagnesemia Cirrhosis Thrombocytopenia Acute on chronic anemia CHF (congestive heart failure) Anemia Alcohol abuse Surgical History No history of previous surgery Social History Social History Household Members: Other Household Members Other:: homeless Housing: Homeless Housing Other:: Homeless nursing home Do you presently have visiting nurse or other home services: No Unable to assess alcohol history related to: Refusing to respond Alcohol intake: current Alcohol intake frequency: 3 or more drinks per day Alcohol type: beer and hard liquor Comment: 1 assist to bathroom Patient Tobacco Use Status: Former Tobacco user Tobacco use type: Cigarette Second Hand Smoke Exposure: No Advance Directives: Yes Advance Directives on File: Yes Advance Directives Date on File: 07/03/23 service: No Physical Exam ED Vital Signs: Vital Signs - 24 hr 02/22/25 18:42 02/22/25 18:42 02/22/25 18:46 Temperature 97.9 F 97.9 F Pulse Rate 86 86 Respiratory Rate 16 16 Blood Pressure 126/67 126/67 Pulse Oximetry 84 L 90 L 98 Oxygen Delivery Method Room Air Nasal Cannula Oxygen Flow Rate 3 02/22/25 21:34 Temperature 99.7 F Pulse Rate 93 Respiratory Rate 18 Blood Pressure 122/63 Pulse Oximetry 96 Oxygen Delivery Method Nasal Cannula Oxygen Flow Rate 2 BMI result Body Mass Index 18.3 Const General: healthy appearing, comfortable, no acute distress, alert and awake Nutritional Appearance: well nourished Orientation/consciousness: patient oriented x3 HENMT Head: Yes normocephalic and Yes atraumatic Eyes Eyelids: Yes eyelids normal Conjunctivae: conjunctivae normal Sclerae: sclerae normal Corneas: corneas normal Pupils: Equal, round and reactive pupils present EOM: EOMs intact bilaterally Neck Neck: Yes full ROM Resp Effort & Inspection: normal respiratory effort, able to speak in complete sentences, no audible wheezes and not labored Auscultation: clear to auscultation bilaterally Cardio Rate: regular rate Rhythm: regular rhythm GI Inspection: No distended Palpation (GI): Soft to palpation, not firm, nontender, no guarding and not rigid Skin General skin exam: elasticity normal Neuro General: patient oriented x3 Cranial nerves: Yes Equal, round and reactive pupils present and Yes Bilaterally intact EOM present Cognition (Neuro): normal cognition Extrem Other: Moving all extremities well without any obvious deformities Course Reevaluation(s) Reevaluation #1: Patient resting comfortably, vital signs remained stable. Time: 03:32 Medical Decision Making Medical Decision Making MDM Narrative: 55-year-old male presenting for evaluation of acute alcohol intoxication. He does complain of back pain and ankle pain. He was appear chronic in nature, the patient was no objective signs of trauma, he does have documented history of chronic back pain and chronic ankle fracture. I do not see any indication for further emergent imaging at this time. Plan for observation Differential Diagnosis Differential Diagnoses: The differential diagnosis associated with the presentation includes Acute alcohol intoxication Ankle pain Chronic back pain Muscle strain Arthritis Rhabdomyolysis less likely Discharge Plan Discharge Clinical Impression: Acute alcohol intoxication Patient Disposition: Home, Self-Care Instructions: Abuse of Alcohol (ED) Additional Instructions: Alcohol use disorder You were seen in the Emergency Department today for treatment of alcohol use disorder.? You may have been given medications to help with your withdrawal symptoms.? Please do not drink alcohol with them. This is very dangerous and can cause respiratory depression or other adverse reactions depending on the medication. If you would like to cut down or stop your alcohol use please consider calling our outpatient Addiction Treatment office:? [facility] (M-F 9a-5p) [address] ? You have also been given a list of treatment providers in the area that can assist as well.? If you experience seizures, vomiting blood, black stools, falls, severe headache, chest pain, fevers, trouble breathing, hallucinations or any other concerns you need to call 911 or seek immediate care. Please stay hydrated. Prescriptions: No Action sucralfate [Carafate] 1 gram tablet 1 g PO BID Qty: 60 0RF acetaminophen 325 mg Tablet 975 mg PO Q6H PRN (Reason: Pain, Mild 1-3,Fever,Headache) Qty: 30 0RF magnesium oxide 400 mg (241.3 mg magnesium) Tablet 400 mg PO DAILY Qty: 30 0RF Deep Sea Nasal 0.65 % Aerosol,[place] 1 spray intranasal Q1H PRN (Reason: Dryness) Qty: 44 0RF spironolactone 25 mg tablet 25 mg PO DAILY Qty: 90 0RF levofloxacin 750 mg Tablet 750 mg PO Q24H Qty: 7 0RF lactulose 10 gram/15 mL solution 30 ml PO TID omeprazole 40 mg capsule,delayed release(DR/EC) 40 mg PO DAILY@0630 folic acid 1 mg Tablet 1 mg PO DAILY Qty: 90 0RF thiamine mononitrate (vit B1) 100 mg Tablet 100 mg PO DAILY Qty: 90 0RF Print Language: Amharic
[2025-02-22 21:34] VITALS: BP 122/63; PULSE 93; RESP 18; TEMP 37.6; O2SAT 96
[2025-02-23 04:14] VITALS: O2SAT 92
--- NOTE | 2025-02-23 05:18 | PC.NURSE ---
pt resting comfortably on stretcher in no apparent resp distress, wearing 3L NC for low o2 of 85% room air.
[2025-02-23 06:26] VITALS: BP 102/48; PULSE 84; RESP 16; TEMP 36.8; O2SAT 92
[2025-02-23 08:13] VITALS: BP 102/48; PULSE 84; RESP 16; TEMP 36.8; O2SAT 92
== END 2025-02-23 08:14 | disposition home or self-care (01) ==
PROVIDERS: Emergency Provider Emergency Medicine Emergency Medical Services
DX: F10.129 Alcohol abuse with intoxication, unspecified (principal); Y90.9 Presence of alcohol in blood, level not specified; M54.50 Low back pain, unspecified; M25.572 Pain in left ankle and joints of left foot; M25.571 Pain in right ankle and joints of right foot; Z79.899 Other long term (current) drug therapy; Z87.891 Personal history of nicotine dependence
CPT/HCPCS: 99283; 99284

== ENCOUNTER 2025-02-26 21:19 | Emergency (ER) | payer MEDICAID, SELFPAY ==
[2025-02-26 21:28] VITALS: BP 136/72; PULSE 86; O2SAT 98
[2025-02-26 21:36] VITALS: BP 112/53; PULSE 68; RESP 16; TEMP 36.6; O2SAT 86; BMI 42.7
[2025-02-26 21:38] VITALS: RESP 16; O2SAT 94
--- OUTSIDE RECORDS SUMMARY | 2025-02-26 21:59 | XMS_ITS | Data Portability ---
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 Name Role Phone [facility] OTHER Assessment Encounter Date Assessment Date [...] Address Organization Details Recorded Time Alcohol abuse 99714599 Active 2022 HALEY WYATT [address] [facility], [address], [place], [address], [employer] 3 16:10:20 Alcoholic cirrhosis 002273943 Active 2022 HALEY WYATT [address] [facility], [address], [place], [address], [employer] 3 16:10:32 Anemia 535606150 Active 2022 HALEY WYATT [address] [facility], [address], [place], [address], [employer] 3 16:10:45 Hepatic encephalop athy 05850178 Active 2022 HALEY WYATT [address] [facility], [address], [place], [address], [employer] 3 16:11:37 Acute respirator y failure 36843689 Active 2022 HALEY WYATT [address] [facility], [address], [place], [address], [employer] 3 16:12:23 Laboratory finding abnormal Active 2022 hypokalemi a hypomagnes ium pancytopen ua repleted in acute care. mag oxide 400 mg BID HALEY WYATT [address] [facility], [address], [place], [address], [employer] 3 16:40:30 Congestive heart failure 47192202 Active 2022 HALEY WYATT [address] [facility], [address], [place], [address], [employer] 3 16:25:07 Homeless 34017925 Active 2022 ANDREYHALEY GASPAR [address] [facility], [address], [place], [address], [facility] [facility] 3 16:55:00 Pancytopen ia 177273971 Active 2022 ANDREYHALEY GASPAR [address] [facility], [address], [place], [address], [facility] [facility] 3 21:48:09 Esophageal varices 90329347 Active 2022 HALEY WYATT [address] [facility], [address], [place], [address], [employer] [facility] 3 16:19:34 Problem Notes None recorded. [...] 110 mm[Hg] 70 mm[Hg] Lis Oconnell MD [address] [place] [address], [facility] [address], [place], [address], [employer] 4 08:21:06 Date Recorded Heart rate Respiratory rate Body temperature Oxygen saturation Oxygen saturation in Arterial blood by Pulse oximetry Systolic blood pressure Diastolic blood pressure Provider Name and Address Organization Details Last Updated DateTime 4 67 /min 16 /min 97.6 [degF] 95 % 95 % 107 mm[Hg] 66 mm[Hg] BRADY HOGAN NP [address] [facility], [address], [place], [address], [employer] 4 10:20:23 Social History Question Answer Notes LastModified by Organizat ion Details LastModified Time Tobacco Smoking Status Former Smoker ANDREY RODRIGUEZHALEY CRUZ [address] [facility], [address], [place], [address], [email or web address] [facility] 09/12/2023 16:57:06 Do You Have An [...] Do You Have A Medical Power Of Fruit Distributor? No HCP/brother Information not available 09/12/2023 What [...] mcg/0.3 mL dose 3 completed Mojgan jain [facility] 11/10/2023 13:12:58 Tdap 1 completed Mojgan jain [facility] 03/01/2024 11:01:29 Td (adult), 5 Lf tetanus toxoid, preservative free, adsorbed 7 completed Mojgan jain [place] [facility] 03/01/2024 11:06:00 Past Encounters Encounter ID Performer Location Encounter Start Date Encounter Closed Date Diagnosis/Indication Diagnosis SNOMED-CT Code Diagnosis ICD10 Code Diagnosis Note [id number] HALEY WYATT [facility] on [address] [place] [address] 09/12/2023 08:36:44 09/15/2023 08:04:55 Hepatic encephalopathy 75997014 K76.82 resolved in acute care/see hpistarted on lactuloser ifaximin 550 mg BIDlactulo se 40 g TID. Acute resp iratory failure 18821460 J96.00 with hypoxia d/t to acute on chronic heart failure-di uresed w/IV lasix resolved in acute care Anemia 003083551 D64.9 see hpiCT scan with distal esophageal varices.- EGD suspected gastric varies as source of bleedfollo w up with GI in 4 weeks for repeat EGD Congestive heart failure 54434574 I50.9 with preserved ejection fractionCT scan showed small plueral effusionCX R with bibasilar opacitiesc ontinue furosemide 20 mg BIDcontinu e spironolac tone 12.5 mg BIDlow salt diet.monit or weight Alcohol abuse 93786706 F 10.10 with acute withdrawal in acute care tx with phenobarbi germania taper.decl ined recovery support in acute carethiami ne 100 mg dailyfolic acid 1 mg daily Bleeding g astric varices 82617618 I86.4 source of anemiaomep razole [address] dailysucra lfate 1 gm BIDcontinu e PPI and sucralfate Homeless 84248267 Z59.00 Social service refer for community resources. [id number] Lis Oconnell MD [facility] on [address] [place] [address] 09/13/2023 05:12:10 09/15/2023 08:33:31 Acute on chronic diastolic heart failure 599297486 I50.33 improved:s pironolact one 12.5 mg bidfurosem eliana 20 mg bidwill monitor Alcohol abuse 03301423 F 10.10 thiamine 100 mg dailyfolic acid 1 gm dailyinter disciplina ry support for sobrietywi ll monitor and support as needed Bleeding e sophageal varices 59262790 I85.01 s/p blood transfusio ns, octeotride , banding/he mospray:om eprazole 40 mg dailysucra lfate 1 gm bidwill monitor Alcoholic cirrhosis 4200 97719 K70.31 Xifaxan 550 mg bidspirono lactone 12.5 mg bidfurosem eliana 20 mg bidwill monitor Hepatic encephalopathy 25527476 K76.82 lactulose 40 gm tidwill monitor [id number] HALEY WYATT [facility] on [address] [place] [address] 09/18/2023 11:37:36 09/20/2023 15:12:00 Congestive heart failure 51685067 I50.9 continue furosemide 20 mg BIDcontinu e spironolac tone 12.5 mg BIDlow salt diet.monit or weight Alcohol abuse 88301939 F 10.10 will consider acamprosta te 666 mg TID.thiami ne 100 mg dailyfolic acid 1 mg daily Bleeding g astric varices 23905717 I86.4 source of anemiaomep razole [address] dailysucra lfate 1 gm BIDcontinu e PPI and sucralfate Hepatic encephalopathy 54619654 K76.82 resolved in acute care/see hpistarted on lactuloser ifaximin 550 mg BIDlactulo se 40 g TID.- reports loose stool x's 1 daily. will continue to monitor for now . [id number] HALEY WYATT [facility] on [address] [place] [address] 10/06/2023 10:25:53 10/18/2023 12:16:47 Altered mental status 118454760 R41.82 see hpiconcern for hepatic encephalop athy due to hxsend to ER for further evaluation [id number] HALEY WYATT [facility] on [address] [place] [address] 10/12/2023 13:49:36 10/18/2023 15:10:16 Hepatic encephalopathy 65201017 K76.82 resolved in acute care/see hpiimaging with no acute processCon tinue lactulose, rifaximin, Lasix, spironolac toneFollow -up outpatient GI Congestive heart failure 62385283 I50.9 continue furosemide 20 mg BIDcontinu e spironolac tone 12.5 mg BIDlow salt diet.monit or weight Pancytopenia 844032738 D 61.818 wbc 3.41-Hgb 7.3-HCT 23.2Possib ly due to alcohol abuseWill continue to monitor CBC [id number] HALEY WYATT [facility] on [address] [place] [address] 10/16/2023 13:03:21 11/22/2023 15:10:28 Hepatic encephalopathy 73292723 K76.82 resolved in acute care/see hpiimaging with no acute processCon tinue lactulose, rifaximin, Lasix, spironolac toneFollow -up outpatient GI Congestive heart failure 75330294 I50.9 continue furosemide 20 mg BIDcontinu e spironolac tone 12.5 mg BIDlow salt diet.monit or weight Pancytopenia 305895219 D 61.818 see aboveimpro kiki hgb 8.8- Plt 68Possibly due to alcohol abuseWill continue to monitor CBC [id number] HALEY WYATT [facility] on [address] [place] [address] 10/24/2023 11:18:12 11/03/2023 11:47:28 Hepatic encephalopathy 34944607 K76.82 alert and oriented x's 2 today unsure of date.resol kiki in acute care/see hpiimaging with no acute processCon tinue lactulose, rifaximin, Lasix, spironolac toneFollow -up outpatient GI Congestive heart failure 47287465 I50.9 Stablke, no reported sxcontinue furosemide 20 mg BIDcontinu e spironolac tone 12.5 mg BIDlow salt diet.monit or weight Pain of le ft shoulder joint [id number] 2849374 M25.512 see hpixray 3 viewstylen ol 975 mg scheduledm otrin 600 mg scheduled. PT referral for pain with abduction. [id number] HALEY WYATT [facility] on [address] [place] [address] 10/27/2023 09:08:50 11/03/2023 12:28:46 Hepatic encephalopathy 72652984 K76.82 appears to be a baseline status, however he appears disoriente d at times.Cont inue lactulose, rifaximin, Lasix, spironolac toneFollow -up outpatient GI Congestive heart failure 85085868 I50.9 Stablecont inue furosemide 20 mg BIDcontinu e spironolac tone 12.5 mg BIDlow salt diet.monit or weight Pain of le ft shoulder joint [id number] 5089399 M25.512 Xray completed, results reviewed with patient: Mild degenerati on of the left shoulder; no acute fracture or dislocatio n. continue with:tylen ol 975 mg scheduledm otrin 600 mg scheduled. PT referral for pain with abduction. [id number] HALEY WYATT [facility] on [address] [place] [address] 11/08/2023 08:13:22 11/22/2023 16:43:01 Daisy-Zee tear 898940970 K22.6 2 days of melena with coffee-kell und emesis on presentati on.GI consulted and performed upper endoscopy on 10/31, evidence of daisy zee tear, gastric ulcers s/p clip placement. continue PPI omeprazole 40 mg twice daily.Carv edilol started as per recommenda tions for esophageal varicesPat ient was advised to avoid NSAID Esophageal varices 31053 008 I85.00 Started on carvedilol 6.25 mg bidomepraz ole 40 mg bidsucralf ate 1 gm BID Anemia 724308865 D64.9 Hgb 6.4 on presentati on to acute careDue to upper GI bleed,Rece ived 3 units of PRBC in acute careCarved ilol started for varices [id number] HALEY WYATT [facility] on [address] [place] [phone] 11/14/2023 07:57:53 12/01/2023 10:08:54 Daisy-Zee tear 981464742 K22.6 11/14 there has been no reported couging and vomiting. 2 days of melena with coffee-kell und emesis on presentati on.GI consulted and performed upper endoscopy on 10/31, evidence of daisy zee tear, gastric ulcers s/p clip placement. continue PPI omeprazole 40 mg twice daily.Carv edilol started as per recommenda tions for esophageal varicesPat ient was advised to avoid NSAID Esophageal varices 34102 008 I85.00 stableStar forrest on carvedilol 6.25 mg bidomepraz ole 40 mg bidsucralf ate 1 gm BID Anemia 906892634 D64.9 11/14will recheck labspatien t denies excess fatigue, weakness, shortness of breathdoes not appear pale, color normal. Hgb 6.4 on presentati on to acute careDue to upper GI bleed,Rece ived 3 units of PRBC in acute careCarved ilol started for varices [id number] HALEY WYATT [facility] on [address] [place] [address] 11/17/2023 08:07:13 12/01/2023 11:37:06 Daisy-Zee tear 491975048 K22.6 stable, There has been no new reported sx.2 days of melena with coffee-kell und emesis on presentati on.GI consulted and performed upper endoscopy on 10/31, evidence of daisy zee tear, gastric ulcers s/p clip placement. continue PPI omeprazole 40 mg twice daily.Carv edilol started as per recommenda tions for esophageal varicesPat ient was advised to avoid NSAID Esophageal varices 19462 008 I85.00 stableStar forrest on carvedilol 6.25 mg bidomepraz ole 40 mg bidsucralf ate 1 gm BID Anemia 416682783 D64.9 11/15: hgb 8.0 hct 25.6will recheck labs Hgb 6.4 on presentati on to acute careDue to upper GI bleed,Rece ived 3 units of PRBC in acute careCarved ilol started for varices [id number] Lis Oconnell MD [facility] on [address] [place] [phone] 11/24/2023 08:20:43 11/29/2023 17:59:33 Alcohol abuse 93082977 F10.10 thiamine 100 mg dailyfolic acid 1 gm dailyMVI dailyacamp rosate 666 mg tidinterdi sciplinary support for sobrietywi ll monitor and support as needed Upper gastrointestinal bleeding 90886100 K92.89 with history varices, Daisy Zee tear:sucra lfate 1 gm bidomepraz ole 40 mg [id number] monitoravo id NSAIDs Alcoholic cirrhosis 4200 97107 K70.31 Xifaxan 550 mg bidspirono lactone 12.5 mg bidfurosem eliana 20 mg dailylactu lose 40gm tidwill monitor Esophageal varices 56325 008 I85.00 see meds for history UGI bleed:also carvedilol 6.25 mg bidwill monitor [id number] BRADY HOGAN NP [facility] on [address] [place] [address] 11/28/2023 09:53:56 12/01/2023 12:57:26 Alcohol abuse 33907088 F10.10 thiamine 100 mg dailyfolic acid 1 gm dailyMVI dailyacamp rosate 666 mg tidinterdi sciplinary support for sobrietywi ll monitor and support as needed Upper gastrointestinal bleeding 44656640 K92.89 with history varices, Daisy Zee tear:sucra lfate 1 gm bidomepraz ole 40 mg [id number] monitoravo id NSAIDs Alcoholic cirrhosis 4200 34763 K70.31 Xifaxan 550 mg bidspirono lactone 12.5 mg bidfurosem eliana 20 mg dailylactu lose 40gm tidwill monitor Esophageal varices 92660 008 I85.00 see meds for history UGI bleed:carv edilol 6.25 mg bidwill monitor Health Concerns Section Related Observation LastModified by Organization Detai ls LastModified Time None Recorded Concern Status LastModified by Organization Details LastModified Time None Recorded Advance Directives Directive Y: Payers Encounter Date Sequence Insurance Name Policy Number Policy Yip Covered Member ID Yip Member ID Guarantor Name 11/08/2023 1 [place] [facility] Charbel Delgado [id number] Charbel Delgado 11/14/2023 1 [place] [facility] Charbel Delgado [id number] Charbel Delgado 11/17/2023 1 [facility] [id number] Charbel Delgado 11/24/2023 1 [place] [facility] [id number] Charbel Delgado 11/28/2023 1 [place] [facility] [id number] Charbel Delgado Notes Date Note Type Note [...] a few weeks. Molst: HALEY Cummings [address] [facility], [address], [place], [address], [facility] [employer] 11/08/2023 16:31:23 11/14/2023 text/html Patient is 53-ye ar-old male seen today for acute rounding visit. Today he is stable, he was sent to ED on 11/09 for hgb noted 7.0 and had repeat labs in ED hgb 8.1. [facility] evening and has been [...] in a few weeks. HALEY WYATT [address] [facility], [address], [place], [address], [facility] [employer] [facility] 11/14/2023 21:53:05 11/17/2023 text/html Patient is [...] no acute nursing concerns. HALEY WYATT [address] [facility], [address], [place], [address], [facility] [facility] 11/17/2023 13:21:44 11/24/2023 text/html This 53 year old male halfway care resident is seen today for routine rounding visit and acute rounding visit. Medical history is remarkable for history of alcohol use disorder with alcoholic cirrhosis, HFpEF, hypertension, ADHD, anxiety, depression Patient was sent out of facility to ER at [facility] on 10/30/23 with melena and coffee-ground [...] full code assumed Lis Oconnell MD [address] [facility], [address], [place], [address], [employer] [facility] 11/24/2023 12:23:26 11/28/2023 text/html seen today for a cute rounding visit, CAOx3 he is complaining about being bored, independent in room, gait steady, mood stable, staff report no concerns BRADY HOGAN NP [address] [facility], [address], [place], [address], [employer] [facility] 11/28/2023 10:23:34
[2025-02-26 22:30] LABS: MANUAL DIFF FLAG NO
[2025-02-26 22:31] LABS: Basophils Percent Auto 1.3 % (0-2); Eosinophils Absolute Auto 0.2 X10*3/uL (0.0-0.4); Eosinophils Percent Auto 5.2 % (0-4); Hematocrit 26.6 % (42.0-52.0); Hemoglobin 8.3 g/dl (14.0-18.0); Imm Gran Abs Auto 0.01 X10*3/uL (0.00-0.03); Imm Gran Pct Auto 0.3 % (0.0-0.4); Lymphocytes Absolute Auto 0.9 X10*3/uL (1.2-4.9); Lymphocytes Percent Auto 28.1 % (20-40); Mean Corpuscular HGB Conc 31.2 g/dl (31.0-36.0); Mean Corpuscular Hemoglobin 29.1 pg (27.0-33.0); Mean Corpuscular Volume 93.3 fL (80.0-98.0); Mean Platelet Volume 9.8 fL (9.4-12.4); Monocytes Absolute Auto 0.3 X10*3/uL (0.1-1.2); Monocytes Percent Auto 8.5 % (2-11); Neutrophils Absolute Auto 1.7 x10*3/uL (2.0-8.3); Neutrophils Percent Auto 56.6 % (45-73); Red Blood Count 2.85 X10*6/uL (4.60-5.80); Red Cell Distribution Width 14.6 % (11.0-16.0); White Blood Count 3.1 X10*3/uL (4.8-10.8)
[2025-02-26 22:32] LABS: Platelet Count 63 X10*3/uL (160-400)
[2025-02-26 22:44] LABS: Alanine Aminotransferase 9 U/L (0-40); Albumin Level 3.8 g/dL (3.5-5.0); Alkaline Phosphatase 135 U/L (39-117); Anion Gap 14 (12-20); Aspartate Amino Transferase 36 U/L (5-37); Bilirubin Total 0.4 mg/dL (0.0-1.0); Blood Urea Nitrogen 10 mg/dL (9-16); Calcium 8.6 mg/dL (8.4-10.2); Carbon Dioxide 17 mmol/L (22-29); Chloride 115 mmol/L (96-108); Creatinine Clr Calc Pharmacy 130.7; Estimated Glomerular Filt Rate > 60; Ethanol 403 mg/dL; Glucose Random 108 mg/dL (60-115); Potassium 3.7 mmol/L (3.3-5.1); Sodium 142 mmol/L (135-145)
[2025-02-26 22:56] LABS: Acetaminophen LAB < 3 mcg/mL (<30); Salicylate < 5.0 mg/dL (15-30)
--- NOTE | 2025-02-27 00:11 | ED.GENADULT ---
HPI - General Adult General Chief complaint: ETOH/Substance Use Stated complaint: etoh Time Seen by Provider: 02/27/25 00:11 History of Present Illness ED Provider: Marty VIVAR narrative: The patient is a 55-year-old male who was a chronic alcoholic who was also homeless comes to the emergency room very frequently. He was brought here by ambulance. He seemed intoxicated. He says it was cold outside. Related Data Home Medications ?Medication ?Instructions ?Recorded ?Confirmed lactulose 10 gram/15 mL oral 30 ml PO TID 02/01/25 02/15/25 solution omeprazole 40 mg capsule,delayed 40 mg PO DAILY@0630 02/01/25 02/15/25 release Previous Rx's ?Medication ?Instructions ?Recorded acetaminophen 325 mg tablet 975 mg (3 x 325 mg) PO Q6H PRN 12/17/24 Pain, Mild 1-3,Fever,Headache #30 tabs magnesium oxide 400 mg (241.3 mg 400 mg PO DAILY #30 tabs 12/17/24 magnesium) tablet sodium chloride 0.65 % nasal spray 1 spray intranasal Q1H PRN Dryness 12/17/24 aerosol (Deep Sea Nasal) #44 mL sucralfate 1 gram tablet (Carafate) 1 g PO BID #60 tabs 12/17/24 folic acid 1 mg tablet 1 mg PO DAILY #90 tabs 02/04/25 thiamine mononitrate (vit B1) 100 100 mg PO DAILY #90 tabs 02/04/ mg tablet spironolactone 25 mg tablet 25 mg PO DAILY #90 tabs 02/13/25 levofloxacin 750 mg tablet 750 mg PO Q24H #7 tabs 02/18/25 Allergies Allergy/AdvReac Type Severity Reaction Status Date / Time No Known Allergies Allergy Verified 02/26/25 21:48 [No Known Allergies*] Review of Systems Review of Systems: Yes all other systems are reviewed and are negative PMF Past Medical History Medical History Alcohol abuse Acute hypoxemic respiratory failure Anemia Alcohol use disorder Pneumonia Alcohol withdrawal syndrome Pancytopenia Alcohol abuse Thrombocytopenia Esophageal varices Acute on chronic anemia Alcoholic liver disease Aspiration pneumonia Thrombocytopenia Malnutrition CHF (congestive heart failure) Anemia Hypomagnesemia Cirrhosis Thrombocytopenia Acute on chronic anemia CHF (congestive heart failure) Anemia Alcohol abuse Surgical History No history of previous surgery Social History Social History Household Members: Other Household Members Other:: homeless Housing: Homeless Housing Other:: Homeless skilled nursing Do you presently have visiting nurse or other home services: No Unable to assess alcohol history related to: Refusing to respond Alcohol intake: current Alcohol intake frequency: 3 or more drinks per day Alcohol type: beer and hard liquor Comment: 1 assist to bathroom Patient Tobacco Use Status: Former Tobacco user Tobacco use type: Cigarette Second Hand Smoke Exposure: No Advance Directives: Yes Advance Directives on File: Yes Advance Directives Date on File: 07/13/23 Do you have a plan to hurt others: No Plan service: No Physical Exam ED Vital Signs: Vital Signs - 24 hr 02/26/25 21:36 02/26/25 21:38 02/27/25 04:00 Temperature 97.9 F 97.9 F Pulse Rate 68 79 Respiratory Rate 16 16 16 Blood Pressure 112/53 L 94/54 L Pulse Oximetry 86 L 94 93 Oxygen Delivery Method Room Air Nasal Cannula Nasal Cannula Oxygen Flow Rate 2 2 BMI result Body Mass Index 42.7 Const Other: The patient is an unkempt, chronically ill-appearing 55-year-old. He was asleep. Later he was awake and looked very chronically ill but not obviously acutely ill. HENMT Other: No signs of trauma to the head or the face. Face is symmetrical. Mucous membranes moist. Eyes General: appearance normal, both eyes and all related structures Neck Other: No C-spine tenderness, moving his neck easily Resp Effort & Inspection: normal respiratory effort Auscultation: clear to auscultation bilaterally Cardio Rate: regular rate Rhythm: regular rhythm Heart sounds: S1 normal heart sound present and S2 normal heart sound present GI Other: Abdomen is soft and nontender Skin Other: Skin is intact Neuro Other: The patient was initially quite intoxicated. Later he was more coherent. His face is symmetrical. His speech is clear. He moves his extremities symmetrically. He has a slow but steady gait. Extrem Other: No peripheral edema Medical Decision Making Medical Decision Making MDM Narrative: The patient is a homeless chronic alcoholic who comes to the emergency room very frequently. His alcohol level was 404. He slept for many hours. This morning he ate a meal. He then went to the bathroom. He has a slow, shuffling gait but seems steady. He was offered recovery team services but he is not interested in stopping alcohol today and so he will be discharged. Lab Data 02/26/25 22:26 02/26/25 22:26 Labs: Lab Results 02/26/25 02/26/25 Range/Units 08:24 22:26 WBC 3.1 L (4.8-10.8) X10*3/uL RBC 2.85 L (4.60-5.80) X10*6/uL Hgb 8.3 L (14.0-18.0) g/dl Hct 26.6 L (42.0-52.0) % MCV 93.3 (80.0-98.0) fL MCH 29.1 (27.0-33.0) pg MCHC 31.2 (31.0-36.0) g/dl RDW 14.6 (11.0-16.0) % Plt Count 63 L (160-400) X10*3/uL MPV 9.8 (9.4-12.4) fL Immature Gran % (Auto) 0.3 (0.0-0.4) % Neut % (Auto) 56.6 (45-73) % Lymph % (Auto) 28.1 (20-40) % [place] % (Auto) 8.5 (2-11) % Eos % (Auto) 5.2 H (0-4) % Baso % (Auto) 1.3 (0-2) % Lymph # (Auto) 0.9 L (1.2-4.9) X10*3/uL [place] # (Auto) 0.3 (0.1-1.2) X10*3/uL Eos # (Auto) 0.2 (0.0-0.4) X10*3/uL Baso # (Auto) 0.0 (0.0-0.2) X10*3/uL Abs Immat Gran (auto) 0.01 (0.00-0.03) X10*3/uL Absolute Neuts (auto) 1.7 L (2.0-8.3) x10*3/uL Absolute Nucleated RBC 0.000 (0.0-0.012) X10*3/uL Nucleated RBC % (auto) 0.0 (0.0-0.2) /100WBC Sodium 142 (135-145) mmol/L Potassium 3.7 (3.3-5.1) mmol/L Chloride 115 H (96-108) mmol/L Carbon Dioxide 17 L (22-29) mmol/L Anion Gap 14 (12-20) BUN 10 (9-16) mg/dL Creatinine 0.77 (0.5-1.4) mg/dL Estim Creat Clear Calc 130.7 Estimated GFR > 60 Random Glucose 108 (60-115) mg/dL Calcium 8.6 (8.4-10.2) mg/dL Total Bilirubin 0.4 (0.0-1.0) mg/dL AST 36 (5-37) U/L ALT 9 (0-40) U/L Alkaline Phosphatase 135 H (39-117) U/L Total Protein 8.0 (6.5-8.0) g/dL Albumin 3.8 (3.5-5.0) g/dL Salicylates < 5.0 L (15-30) mg/dL Acetaminophen < 3 (<30) mcg/mL Ethyl Alcohol 403 H* mg/dL Discharge Plan Discharge Clinical Impression: Alcohol intoxication Patient Disposition: Home, Self-Care Additional Instructions: Alcohol use disorder You were seen in the Emergency Department today for treatment of alcohol use disorder.? You may have been given medications to help with your withdrawal symptoms.? Please do not drink alcohol with them. This is very dangerous and can cause respiratory depression or other adverse reactions depending on the medication. If you would like to cut down or stop your alcohol use please consider calling our outpatient Addiction Treatment office:? [facility] (M-F 9a-5p [address] [place] [address] ? You have also been given a list of treatment providers in the area that can assist as well.? If you experience seizures, vomiting blood, black stools, falls, severe headache, chest pain, fevers, trouble breathing, hallucinations or any other concerns you need to call 911 or seek immediate care. Please stay hydrated. Prescriptions: No Action sucralfate [Carafate] 1 gram tablet 1 g PO BID Qty: 60 0RF acetaminophen 325 mg Tablet 975 mg PO Q6H PRN (Reason: Pain, Mild 1-3,Fever,Headache) Qty: 30 0RF magnesium oxide 400 mg (241.3 mg magnesium) Tablet 400 mg PO DAILY Qty: 30 0RF Deep Sea Nasal 0.65 % Aerosol,[place] 1 spray intranasal Q1H PRN (Reason: Dryness) Qty: 44 0RF spironolactone 25 mg tablet 25 mg PO DAILY Qty: 90 0RF levofloxacin 750 mg Tablet 750 mg PO Q24H Qty: 7 0RF lactulose 10 gram/15 mL solution 30 ml PO TID omeprazole 40 mg capsule,delayed release(DR/EC) 40 mg PO DAILY@0630 folic acid 1 mg Tablet 1 mg PO DAILY Qty: 90 0RF thiamine mononitrate (vit B1) 100 mg Tablet 100 mg PO DAILY Qty: 90 0RF Referrals: [facility] [Provider Group] (Alcohol abuse) Print Language: [place]
[2025-02-27 04:00] VITALS: BP 94/54; PULSE 79; RESP 16; TEMP 36.6; O2SAT 93
--- NOTE | 2025-02-27 08:45 | PC.NURSE ---
Addendum entered by Maddy Murray RN 02/27/25 09:52: DC order placed, patient given back rest of his belongings from [facility] by [facility], this RN then notified that per CARE team patient can not leave due to potential section 35. patient currently dressed and awaiting CARE/ED provider for further plan of care. Original Note: assumed care of patient at 0700, patient in gown, not fully changed over, has half of belongings at bedside. patient slept most of morning on 2l NC. patient breakfast ordered, patient ate breakfast, has been calm and cooperative, no SI/HI. patient at his baseline. patient
[2025-02-27 10:14] VITALS: BP 133/71; PULSE 83; RESP 20; TEMP 37; O2SAT 93
--- NOTE | 2025-02-27 12:00 | PC.NURSE ---
this RN was notified by ED provider that when patient wakes up he can leave if he wants to. patient awoke, ambulated off of unit with steady gait and belongings.
== END 2025-02-27 12:01 | disposition home or self-care (01) ==
PROVIDERS: Emergency Provider Emergency Medicine
DX: F10.120 Alcohol abuse with intoxication, uncomplicated (principal); Y90.8 Blood alcohol level of 240 mg/100 ml or more; Z59.00 Homelessness unspecified; Z79.899 Other long term (current) drug therapy
CPT/HCPCS: 36415; 80053; 80143; 80179; 80307; 85025; 99283

== ENCOUNTER 2025-02-28 00:28 | Inpatient (IN) | payer MEDICAID, SELFPAY ==
[2025-02-28] VITALS (10 sets, daily range): BP systolic 98–126; BP diastolic 41–60; PULSE 74–87; RESP 16–20; TEMP 36.2–37.2; O2SAT 80–98; BMI 19.4; BMI 20.1
--- NOTE | ~2025-02-28 | XR_ITS ---
CLINICAL HISTORY: sob, O2 desaturation 1 view chest x-ray Comparison: CR - XR CHEST 1V - 02/18/25 21:39 EDT Findings: No consolidation or effusion. Enlarged cardiac silhouette with prominent central pulmonary vasculature and cephalization pulmonary vascular flow. No acute fracture. IMPRESSION: Enlarged cardiac silhouette with mild pulmonary edema. This document has been electronically signed by: Bharat Landaverde MD, PHD on 02/28/2025 02:51:01
--- NOTE | 2025-02-28 00:35 | ED_ITS ---
HPI - Alcohol General Chief Complaint: ETOH/Substance Use Stated Complaint: ETOH Source: patient and EMS Mode of arrival: EMS Limitations: other History of Present Illness ED Provider: Dr. Alexandria Sweeney HPI narrative: Patient comes to the emergency room via ambulance. According to the patient he is here because he is intoxicated and needs a place to sleep. He denies chest pain or shortness of breath. Related Data Home Medications ?Medication ?Instructions ?Recorded ?Confirmed lactulose 10 gram/15 mL oral 30 ml PO TID 02/01/25 02/15/25 solution omeprazole 40 mg capsule,delayed 40 mg PO DAILY@0630 02/01/25 02/15/25 release Previous Rx's ?Medication ?Instructions ?Recorded acetaminophen 325 mg tablet 975 mg (3 x 325 mg) PO Q6H PRN 12/17/24 Pain, Mild 1-3,Fever,Headache #30 tabs magnesium oxide 400 mg (241.3 mg 400 mg PO DAILY #30 tabs 12/17/24 magnesium) tablet sodium chloride 0.65 % nasal spray 1 spray intranasal Q1H PRN Dryness 12/17/24 aerosol (Deep Sea Nasal) #44 mL sucralfate 1 gram tablet (Carafate) 1 g PO BID #60 tabs 12/17/24 folic acid 1 mg tablet 1 mg PO DAILY #90 tabs 02/04/25 thiamine mononitrate (vit B1) 100 100 mg PO DAILY #90 tabs 02/04/ mg tablet spironolactone 25 mg tablet 25 mg PO DAILY #90 tabs 02/13/25 levofloxacin 750 mg tablet 750 mg PO Q24H #7 tabs 02/18/25 Allergies Allergy/AdvReac Type Severity Reaction Status Date / Time No Known Allergies Allergy Verified 02/28/25 00:33 [No Known Allergies*] Review of Systems 2 Review of Systems: Constitutional : No Weight loss, No Fever, No Chills, No Night Sweats, No Fatigue, No Malaise ENT/Mouth : No Hearing loss, No Ear Pain, No Nasal Congestion, No Sinus Pain, No Hoarseness, No sore throat, No Rhinorrhea, No Swallowing Difficulty Eyes: No Eye Pain, No Swelling, No Redness, No Foreign Body, No Discharge, No Vision Changes Cardiovascular : No Chest Pain, No SOB, No Dyspnea on Exertion, No Orthopnea, No Edema, No Palpitations Respiratory : No Cough, No Sputum, No Wheezing, No Smoke Exposure, No Dyspnea Gastrointestinal : No Nausea, No Vomiting, No Diarrhea, No Constipation, No abdominal Pain, No Hematochezia, No Melena Genitourinary : no irregular bleeding, No Dysuria, No Urinary Frequency, No Hematuria, No Urinary Incontinence, No Urgency, No Flank Pain, No Urinary Flow Changes, No Hesitancy Musculoskeletal : No joint pain, No Myalgias, No Joint Swelling Skin : No Skin Lesions, No rash Neuro : No Weakness, No Numbness, No Paresthesias, No Loss of Consciousness, No Dizziness, No Headache Psych : No Anxiety/Panic, No Depression, No SI/HI/AH/VH, admits to alcohol abuse and dependence Heme/Lymph: No Bruising, No Bleeding,No Lymphadenopathy Endocrine : No Polyuria, No Polydipsia, No Temperature Intolerance [facility] Past Medical History Medical History Alcohol abuse Acute hypoxemic respiratory failure Anemia Alcohol use disorder Pneumonia Alcohol withdrawal syndrome Pancytopenia Alcohol abuse Thrombocytopenia Esophageal varices Acute on chronic anemia Alcoholic liver disease Aspiration pneumonia Thrombocytopenia Malnutrition CHF (congestive heart failure) Anemia Hypomagnesemia Cirrhosis Thrombocytopenia Acute on chronic anemia CHF (congestive heart failure) Anemia Alcohol abuse Surgical History No history of previous surgery Social History Social History Household Members: Other Household Members Other:: homeless Housing: Homeless Housing Other:: Homeless [facility] Do you presently have visiting nurse or other home services: No Unable to assess alcohol history related to: Refusing to respond Alcohol intake: current Alcohol intake frequency: 3 or more drinks per day Alcohol type: beer and hard liquor Comment: 1 assist to bathroom Patient Tobacco Use Status: Former Tobacco user Tobacco use type: Cigarette Second Hand Smoke Exposure: No Advance Directives: Yes Advance Directives on File: Yes Advance Directives Date on File: 07/13/23 service: No Physical Exam ED Vital Signs: Vital Signs - 24 hr 02/28/25 00:31 02/28/25 01:03 02/28/25 01:09 Temperature 97.8 F Pulse Rate 80 75 77 Respiratory Rate 18 16 18 Blood Pressure 110/55 L Pulse Oximetry 89 L 85 L 94 Oxygen Delivery Method Room Air Room Air Nasal Cannula Oxygen Flow Rate 2 02/28/25 04:37 Temperature 98.2 F Pulse Rate 80 Respiratory Rate 16 Blood Pressure 98/49 L Pulse Oximetry 80 L Oxygen Delivery Method Room Air Oxygen Flow Rate BMI result Body Mass Index 19.4 Const Other: Appearance: Alert. Oriented X3. Patient is intoxicated Eyes: Pupils equal, round and reactive to light. ENT: Pharynx normal. Neck: Normal inspection. Neck supple. No lymph nodes noted. No crepitus CVS: Normal heart rate and rhythm. Pulses normal. Normal S1 and S2 Respiratory: No respiratory distress. Breath sounds normal. No Wheezing. No rales Abdomen: Soft and nontender. No rigidity. No distention. Skin: Skin warm and dry. Normal skin color. Normal skin turgor. Extremities: +2 pitting edema bilaterally,. No Lacerations. No Rash Neuro: Oriented X 3. No motor deficit. No sensory deficit. Moving all extremities. No slurred speech. CN 2 through 12 grossly intact Psych: calm, a bit loud but redirectable Course Course Course Narrative: It was noted that patient's lower extremities have +2 edema. All of patient's labs pending. When patient sleeps, his oxygen dropped to 85%. Patient was put on 2 L nasal cannula, oxygen saturation 94%. All of patient's labs and imaging still pending. Medical Decision Making Medical Decision Making [facility] Narrative: My interpretation of labs: Patient's hematology is at baseline, 8.0 for the patient. Chemistry does not show any acute abnormality. BNP slightly bumped in the 160s. X-ray shows mild pulmonary edema Oxygen saturation drops to 81 % on room air while he is sitting awake Last time that the patient was here, the medicine team attempted to section 35 Pain states that he did not know he was supposed to be on diuretics. He has not been taking any of his medications. Also, recently admitted for pneumonia I discussed the patient with Dr. Hogan, patient being admitted Differential Diagnosis Differential Diagnoses: The differential diagnosis associated with the presentation includes (Alcohol intoxication, CHF, pneumonia) Admission/Observation Consideration of admission/observation: Escalation of care including admission/observation considered Consult Healthcare Provider Management of the patient was discussed with: Hospitalist Lab Data [facility] Lab Attestation statement: I reviewed the patient's lab results. 02/28/25 00:49 02/28/25 00:49 Labs: Lab Results 02/28/25 Range/Units 00:49 WBC 3.8 L (4.8-10.8) X10*3/uL RBC 2.72 L (4.60-5.80) X10*6/uL Hgb 8.0 L (14.0-18.0) g/dl Hct 25.4 L (42.0-52.0) % MCV 93.4 (80.0-98.0) fL MCH 29.4 (27.0-33.0) pg MCHC 31.5 (31.0-36.0) g/dl RDW 14.9 (11.0-16.0) % Plt Count 64 L (160-400) X10*3/uL MPV 11.1 (9.4-12.4) fL Immature Gran % (Auto) 0.3 (0.0-0.4) % Neut % (Auto) 52.8 (45-73) % Lymph % (Auto) 31.1 (20-40) % [place] % (Auto) 10.0 (2-11) % Eos % (Auto) 4.5 H (0-4) % Baso % (Auto) 1.3 (0-2) % Lymph # (Auto) 1.2 (1.2-4.9) X10*3/uL [place] # (Auto) 0.4 (0.1-1.2) X10*3/uL Eos # (Auto) 0.2 (0.0-0.4) X10*3/uL Baso # (Auto) 0.1 (0.0-0.2) X10*3/uL Abs Immat Gran (auto) 0.01 (0.00-0.03) X10*3/uL Absolute Neuts (auto) 2.0 (2.0-8.3) x10*3/uL Absolute Nucleated RBC 0.000 (0.0-0.012) X10*3/uL Nucleated RBC % (auto) 0.0 (0.0-0.2) /100WBC Sodium 142 (135-145) mmol/L Potassium 3.6 (3.3-5.1) mmol/L Chloride 115 H (96-108) mmol/L Carbon Dioxide 18 L (22-29) mmol/L Anion Gap 13 (12-20) BUN 14 (9-16) mg/dL Creatinine 0.71 (0.5-1.4) mg/dL Estim Creat Clear Calc 89.4 Estimated GFR > 60 Random Glucose 110 (60-115) mg/dL Calcium 8.4 (8.4-10.2) mg/dL Magnesium 1.8 (1.6-2.6) mg/dL Total Bilirubin 0.3 (0.0-1.0) mg/dL Direct Bilirubin 0.2 (0.0-0.5) mg/dL AST 35 (5-37) U/L ALT 7 (0-40) U/L Alkaline Phosphatase 163 H (39-117) U/L Troponin I High Sens < 2.7 (<3.5-35.0) ng/L B-Natriuretic Peptide 166 H (<100) pg/mL Total Protein 7.9 (6.5-8.0) g/dL Albumin 3.7 (3.5-5.0) g/dL Ethyl Alcohol 392 H* mg/dL Independent Interpretation I performed an independent interpretation of an: EKG and Plain X-Ray Radiology Impression Discussion of test interpretation with radiology: I have reviewed the radiologist's reading. Radiologist Impression: No consolidation or effusion. Enlarged cardiac silhouette with prominent central pulmonary vasculature and cephalization pulmonary vascular flow. No acute fracture. IMPRESSION: Enlarged cardiac silhouette with mild pulmonary edema. Critical Care Time Critical Care Time Critical Care Time: Yes Total Critical Care Time: 60 Attestation: I have personally provided critical care time. Time includes review of lab data, radiology results, discussion with consultants, and monitoring for potential decompensation. Intervention performed as documented. Discharge Plan Discharge Clinical Impression: Alcoholic intoxication, CHF (congestive heart failure), Hypoxic Patient Disposition: Admitted As Inpatient Prescriptions: No Action sucralfate [Carafate] 1 gram tablet 1 g PO BID Qty: 60 0RF acetaminophen 325 mg Tablet 975 mg PO Q6H PRN (Reason: Pain, Mild 1-3,Fever,Headache) Qty: 30 0RF magnesium oxide 400 mg (241.3 mg magnesium) Tablet 400 mg PO DAILY Qty: 30 0RF Deep Sea Nasal 0.65 % Aerosol,[place] 1 spray intranasal Q1H PRN (Reason: Dryness) Qty: 44 0RF spironolactone 25 mg tablet 25 mg PO DAILY Qty: 90 0RF levofloxacin 750 mg Tablet 750 mg PO Q24H Qty: 7 0RF lactulose 10 gram/15 mL solution 30 ml PO TID omeprazole 40 mg capsule,delayed release(DR/EC) 40 mg PO DAILY@0630 folic acid 1 mg Tablet 1 mg PO DAILY Qty: 90 0RF thiamine mononitrate (vit B1) 100 mg Tablet 100 mg PO DAILY Qty: 90 0RF Print Language: Malagasy
--- OUTSIDE RECORDS SUMMARY | 2025-02-28 00:47 | XMS_ITS ---
Author Organization [employer] [facility] Address [address] [place] [id number] Care Team Providers Care Service Representative Name Role Phone Unavailable Primary Care Provider Unavailabl e CM Complex Status:Outreach In Progress (Enrolling) Start date:02/05/2025 Enrollment reason:ADT Feed Overview ED- Pt went to [facility] ED on 02/04/25. Case Team Name Relationship Phone Missy Milner RN Registered Nurse(Responsible S taff) Continued Care and Services Coordination
--- OUTSIDE RECORDS SUMMARY | 2025-02-28 00:47 | XMS_ITS | Clinical Summary ---
Author Organization [facility] Address [address] [place] [address] Care Team Providers Care Spray Ii Painter Name Role Phone Unavailable Primary Care Provider [...] Patient presented with altered mental status from [facility] where he appeared more lethargic than [...] Encounters Date Type Department Care Team Description 02/26/2025 Orders Only GENERIC EXTERNAL DATA DEPARTMENT Provider, Generic External Data 02/21/2025 Orders Only GENERIC EXTERNAL DATA DEPARTMENT Provider, Generic External Data 02/21/2025 Patient Outreach [address] [address] Santosh Daley MD Care Coordination (C3/CM Outreach) 02/19/2025 Patient Outreach [facility] [address] [place] [address] Missy Milner RN 02/13/2025 Patient Outreach [address] [address] Misti Murry MD Care Coordination (Outreach) 02/11/2025 Orders Only [facility] External Provider, [facility] 02/10/2025 Orders Only GENERIC EXTERNAL DATA DEPARTMENT Provider, Generic External Data 02/08/2025 Orders Only GENERIC EXTERNAL DATA DEPARTMENT Provider, Generic External Data 02/07/2025 Orders Only GENERIC EXTERNAL DATA DEPARTMENT Provider, Generic External Data 02/07/2025 Patient Outreach [address] [address] Misti Murry MD Care Coordination (C3/CM Outreach) 02/06/2025 Orders Only GENERIC EXTERNAL DATA DEPARTMENT Provider, Generic External Data 02/05/2025 Patient Outreach [address] [address] Santosh Daley MD Care Coordination (C3/CM Chart Review) 02/05/2025 Patient Outreach [facility] [address] [place] [address] Missy Milner RN Care Coordination (C3CM chart review) 02/05/2025 Patient Outreach [address] [place] [address] Santosh Daley MD 01/31/2025 Orders Only GENERIC EXTERNAL DATA DEPARTMENT Provider, Generic External Data 01/30/2025 Orders Only GENERIC CTC DEPARTMENT [facility] 01/24/2025 Patient Outreach [facility] [address] [place] [address] Santosh Daley MD Care Coordination (Outreach) 01/24/2025 Population Health Risk Score [facility] Department [address] [place] [phone] Provider, Population Health Generic 01/14/2025 Patient Outreach [facility] [address] [place] [address] Santosh Daley MD Care Coordination (Outreach) 01/06/2025 Patient Outreach [facility] [address] [place] [address] Santosh Daley MD Care Coordination (Outreach) 12/26/2024 Patient Outreach [facility] [address] [place] [address] Santosh Daley MD Care Coordination (Outreach) from Last 3 Months Immunizations Name Administration Dates Next Due Lucy SARS-CoV-2 Vaccination 04/28/2021 Pfizer Covid-19 Vaccine 12+ [...] Upcoming Encounters Date Type Department Care Team ([facility] st Contact Info) Description 05/02/2025 10:00 AM EDT Office Visit [facility] [address] [place] [address] Misti Murry MD [address] [place] [address] Health Maintenance Due Date Last Done Comments [...] Priority Date/Time Associated Diagnosis Comments ETHANOL Routine 02/26/2025 10:26 PM EDT COMPREHENSIVE METABOLIC PANEL Routine 02/26/2025 10:26 PM EDT CBC WITH AUTO DIFFERENTIAL Routine 02/26/2025 10:26 PM EDT ACETAMINOPHEN LEVEL Routine 02/26/2025 8 :24 AM EDT SALICYLATE Routine 02/26/2025 8:24 AM EDT ETHANOL Routine 02/21/2025 8:07 PM EDT BASIC [...] CONTRAST Routine 11/30/2024 2 :14 AM EST from Last 3 Months Results * (ABNORMAL) Ethanol (02/26/2025 10:26 PM EDT) Only the most recent of7 resultswithin the time period is included. ETHANOL (MG/DL) IN SER/PLAS 403(HH) mg/dL [facility] Comment:Serum/plasma ethanol results are to be used formedical/treatment purposes only. 02/26/2025 10:2 6 PM EDT 02/26/2025 10:28 PM EDT us Generic External Data Provider LAB BLOOD ORDERAB LES Final Result [facility] [address] [place] [phone] * (ABNORMAL) CBC auto differential (02/26/2025 10:26 PM EDT) Only the most recent of9 resultswithin the time period is included. White Blood Count 3.1(L) 4.8 - 10.8 X10*3/uL [facility] Red Blood Count 2.85(L) 4.60 - 5.80 X10*6/uL [facility] Hemoglobin 8.3(L) 14.0 - 18.0 g/dl [facility] Hematocrit 26.6(L) 42.0 - 52.0 % [facility] Mean Corpuscular Volume 93.3 80.0 - 98.0 fL [facility] Mean Corpuscular Hemoglobin 29.1 27.0 - 33.0 pg [facility] Mean Corpuscular HGB Conc 31.2 31.0 - 36.0 g/dl [facility] Red Cell Distribution Width 14.6 11.0 - 16.0 % [facility] Platelet Count 63(L) 160 - 400 X10*3/uL [facility] Mean Platelet Volume 9.8 9.4 - 12.4 fL [facility] Neutrophils Percent Auto 56.6 45 - 73 % [facility] Imm Gran Pct Auto 0.3 0.0 - 0.4 % [facility] Lymphocytes Percent Auto 28.1 20 - 40 % [facility] Monocytes Percent Auto 8.5 2 - 11 % [facility] Eosinophils Percent Auto 5.2(H) 0 - 4 % [facility] Basophils Percent Auto 1.3 0 - 2 % [facility] NRBC Pct Auto 0.0 0.0 - 0.2 /100WBC [facility] Neutrophils Absolute Auto 1.7(L) 2.0 - 8.3 x10*3/uL [facility] Imm Gran Abs Auto 0.01 0.00 - 0.03 X10*3/uL [facility] Lymphocytes Absolute Auto 0.9(L) 1.2 - 4.9 X10*3/uL [facility] Monocytes Absolute Auto 0.3 0.1 - 1.2 X10*3/uL [facility] Eosinophils Absolute Auto 0.2 0.0 - 0.4 X10*3/uL [facility] Basophils Absolute Auto 0.0 0.0 - 0.2 X10*3/uL [facility] NRBC Abs Auto 0.000 0.0 - 0.012 X10*3/uL [facility] 02/26/2025 10:2 6 PM EDT 02/26/2025 10:28 PM EDT us Generic External Data Provider LAB BLOOD ORDERAB LES Final Result [facility] [address] [place] [phone] * (ABNORMAL) Comprehensive Metabolic Panel (02/26/2025 10:26 PM EDT) Only the most recent of6 resultswithin the time period is included. Sodium 142 135 - 145 mmol/L [facility] Potassium 3.7 3.3 - 5.1 mmol/L [facility] Chloride 115(H) 96 - 108 mmol/L [facility] Carbon Dioxide 17(L) 22 - 29 mmol/L [facility] Anion Gap 14 12 - 20 [facility] Urea Nitrogen (BUN) 10 9 - 16 mg/dL [facility] Creatinine, Serum 0.77 0.5 - 1.4 mg/dL [facility] Creatinine Clr Calc Pharmacy 130.7 [facility] Comment:eGFR (calculated fro m the MDRD study equation) and eCrCl(calculated from the Cockcroft-Gault equation) are based ondifferent parameters and may not yield comparable results.If eCrCl result is absurd, please check patient'sheight/weight. Estimated Glomerular Filt Rate >60 [facility] Comment:Chronic Kidney Disea se: Estimated GFR < 60 mL/min/1.61t4Eyuscr Kidney Disease: Estimated GFR < 15 mL/min/1.73m2 Glucose 108 60 - 115 mg/dL [facility] Calcium 8.6 8.4 - 10.2 mg/dL [facility] Bilirubin, Total 0.4 0.0 - 1.0 mg/dL [facility] Aspartate Amino Transferase 36 5 - 37 U/L [facility] Alanine Aminotransferase 9 0 - 40 U/L [facility] Total Protein 8.0 6.5 - 8.0 g/dL [facility] Albumin Level 3.8 3.5 - 5.0 g/dL [facility] Alkaline Phosphatase 135(H) 39 - 117 U/L [facility] 02/26/2025 10:2 6 PM EDT 02/26/2025 10:28 PM EDT us Generic External Data Provider LAB BLOOD ORDERAB LES Final Result Performing Organization Address City/[facility]/ZIP Co de Phone Number [facility] [address] [place] [phone] * Acetaminophen level (02/26/2025 8:24 AM EDT) Acetaminophen LAB <3 <30 mcg/mL [facility] 02/26/2025 8:24 AM EDT 02/26/2025 10:28 PM EDT us Generic External Data Provider LAB BLOOD ORDERAB LES Final Result Performing Organization Address City/[facility]/ZIP Co de Phone Number [facility] [address] [place] [phone] * (ABNORMAL) Salicylate (02/26/2025 8:24 AM EDT) Salicylate <5.0(L) 15 - 30 mg/dL [facility] 02/26/2025 8:24 AM EDT 02/26/2025 10:28 PM EDT us Generic External Data Provider LAB BLOOD ORDERAB LES Final Result [facility] [address] [facility] [place] [address] [phone] * (ABNORMAL) Drug Monitoring, Panel 1, Screen, Urine (02/21/2025 8:07 PM EDT) Only the most recent of2 resultswithin the time period is included. Opiate Screen Urine Not Detected Not Detect [facility] Comment:Opiate cut-off is 30 0 ng/mL.Positive results are unconfirmed and should not be used fornon-medical purposes. Barbiturates, Urine POSITIVE(A) Not Detect [facility] Comment:Barbiturate cut-off is 200 ng/mL.Positive results are unconfirmed and should not be used fornon-medical purposes. Phencyclidine Screen Urine Not Detected Not Detect [facility] Comment:Phencyclidine cut-of f is 25 ng/mL.Positive results are unconfirmed and should not be used fornon-medical purposes. Amphetamine Screen Urine Not Detected Not Detect [facility] Comment:Amphetamine cut-off is 1000 ng/mL.Positive results are unconfirmed and should not be used fornon-medical purposes. Benzodiazepines Screen Urine Not Detected Not Detect [facility] Comment:Benzodiazepine cut-o ff is 200 ng/mL.Positive results are unconfirmed and should not be used fornon-medical purposes. Cocaine Screen Urine Not Detected Not Detect [facility] Comment:Cocaine cut-off is 3 00 ng/mL.Positive results are unconfirmed and should not be used fornon-medical purposes. Cannabinoid Screen Urine Not Detected Not Detect [facility] Comment:Cannabinoid cut-off is 50 ng/mL.Positive results are unconfirmed and should not be used fornon-medical purposes. Methadone Screen, Urine Not Detected Not Detect ng/mL [facility] Comment:Methadone cut-off is 300 ng/mL.Positive results are unconfirmed and should not be used fornon-medical purposes. FENTANYL URINE Not Detected Not Detect [facility] Comment:Fentanyl cut-off is 1 ng/mL.Positive results are unconfirmed and should not be used fornon-medical purposes. Oxycodone Urine Screen Not Detected Not Detect ng/mL [facility] Comment:Oxycodone cut-off is 100 ng/mL.Positive results are unconfirmed and should not be used fornon-medical purposes. Buprenorphine Screen Not Detected Not Detect ng/mL [facility] Comment:Buprenorphine cut-of f is 5 ng/mL.Positive results are unconfirmed and should not be used fornon-medical purposes. 02/21/2025 8:07 PM EDT 02/21/2025 8:10 PM EDT us Generic External Data Provider LAB URINE ORDERAB LES Final Result [facility] [address] [place] [phone] * Hepatic Function Panel (02/21/2025 8:07 PM EDT) Only the most recent of3 resultswithin the time period is included. Bilirubin, Total 0.3 0.0 - 1.0 mg/dL [facility] Bilirubin, Direct 0.2 0.0 - 0.5 mg/dL [facility] Aspartate Amino Transferase 33 5 - 37 U/L [facility] Alanine Aminotransferase 10 0 - 40 U/L [facility] Total Protein 7.4 6.5 - 8.0 g/dL [facility] Albumin Level 3.5 3.5 - 5.0 g/dL [facility] Alkaline Phosphatase 104 39 - 117 U/L [facility] 02/21/2025 8:07 PM EDT 02/21/2025 8:10 PM EDT us Generic External Data Provider LAB BLOOD ORDERAB LES Final Result Performing Organization Address City/[facility]/ZIP Co de Phone Number [facility] [address] [place] [phone] * (ABNORMAL) Basic Metabolic Panel (02/21/2025 8:07 PM EDT) Only the most recent of3 resultswithin the time period is included. Sodium 142 135 - 145 mmol/L [facility] Potassium 4.3 3.3 - 5.1 mmol/L [facility] Chloride 118(H) 96 - 108 mmol/L [facility] Carbon Dioxide 17(L) 22 - 29 mmol/L [facility] Anion Gap 11(L) 12 - 20 [facility] Urea Nitrogen (BUN) 17(H) 9 - 16 mg/dL [facility] Creatinine, Serum 0.75 0.5 - 1.4 mg/dL [facility] Creatinine Clr Calc Pharmacy 84.6 [facility] Comment:eGFR (calculated fro m the MDRD study equation) and eCrCl(calculated from the Cockcroft-Gault equation) are based ondifferent parameters and may not yield comparable results.If eCrCl result is absurd, please check patient'sheight/weight. Estimated Glomerular Filt Rate >60 [facility] Comment:Chronic Kidney Disea se: Estimated GFR < 60 mL/min/1.05z0Hpnrsr Kidney Disease: Estimated GFR < 15 mL/min/1.73m2 Glucose 88 60 - 115 mg/dL [facility] Calcium 8.5 8.4 - 10.2 mg/dL [facility] 02/21/2025 8:07 PM EDT 02/21/2025 8:10 PM EDT us Generic External Data Provider LAB BLOOD ORDERAB LES Final Result Performing Organization Address City/[facility]/ZIP Co de Phone Number [facility] [address] [place] [phone] * XR Chest 1 View (02/11/2025 11:05 AM EDT) Anatomical Region Laterality Modality Chest Radiographic Lamar ging 02/11/2025 11:0 5 AM EDT Narrative 02/11/2025 11:19 AM EDT ? [facility] ?[address] ?[place] [address] ?XRay Report ? Signed ? Patient: Delgado,Charbel ?MR#: [id number] ? : 1970 ?Acct:[id number] ? Age/Sex: 55 / M ?ADM Date: 02/11/25 ? Loc: HO.S3 ?370-1 ? Attending Dr: Rolan Baker MD ? Ordering Physician: Rolan Baker MD ?? Date of Service: 02/11/25 ?? Procedure(s): XR chest 1V ?? Accession Number(s): [id number] ? cc: [facility]; Rolan Baker MD ? EXAMINATION: ??XR [...] DD/ 1105 ? TD/TT: 02/11/25 1111 ? Fixed Assets Accountant: ? Procedure Note Moy Image - 02/11/[address] [address] XRay Report Signed Patient: Isaias Delgado#: [id number] : 1970Acct:[id number] Age/Sex: 55 / MADM Date: 02/11/25 Loc: [facility] 370-[address]: Rolan Baker MD Ordering Physician: Rolan Baker MD Date of Service: 02/11/25 Procedure(s): XR chest 1V Accession Number(s): [id number] cc: [facility]; Rolan Baker MD EXAMINATION: XR CHEST [...] 02/11/25 1116 DD/ 1105 TD/TT: 02/11/25 1111 Fixed Assets Accountant: us [facility] External Provider IMG XR PROCEDURES Final Result * Magnesium (02/10/2025 11:37 PM EDT) Only the most recent of2 resultswithin the time period is included. Magnesium 1.7 1.6 - 2.6 mg/dL [facility] 02/10/2025 11:3 7 PM EDT 02/10/2025 11:43 PM EDT us Generic External Data Provider LAB BLOOD ORDERAB LES Final Result Performing Organization Address [facility] Co de Phone Number [facility] [address] [place] [phone] * (ABNORMAL) VENOUS BLOOD GAS (02/08/2025 6:41 PM EDT) Only the most recent of2 resultswithin the time period is included. VBG pH 7.45(H) 7.32 - 7.43 [facility] Comment:METER #: [id number] additional_comment: Cb nsl VBG PCO2 31 mmHg [facility] Comment:METER #: [id number] additional_comment: Cb nsl VBG PO2 43 mmHg [facility] Comment:METER #: [id number] additional_comment: Cb nsl VBG Base Excess -1.0 mmol/L [facility] Comment:METER #: [id number] additional_comment: Cb nsl VBG HCO3 22 22 - 26 mmol/L [facility] Comment:METER #: [id number] additional_comment: Cb nsl O2 Sat, Demetrio 66.0 % [facility] Comment:METER #: [id number] additional_comment: Cb nsl 02/08/2025 6:41 PM EDT 02/08/2025 6:44 PM EDT us Generic External Data Provider LAB BLOOD ORDERAB LES Final Result Performing Organization Address [facility] Co de Phone Number [facility] [address] [place] [phone] * (ABNORMAL) Lactic Acid (02/08/2025 6:30 PM EDT) Lactic Acid 2.9(HH) 0.5 - 2.0 mmol/L [facility] Comment:Critical value for t est(s): LACTIC Results called to gildardo back by: PRACHI Person calling: JENNIE Melendrez: 02/08/25Time: 1858 02/08/2025 6:30 PM EDT 02/08/2025 6:37 PM EDT us Generic External Data Provider LAB BLOOD ORDERAB LES Final Result [facility] [address] [facility] [place] [phone] * CTA Chest PE Protocal (02/08/2025 4:12 AM EDT) Anatomical Region Laterality Modality Body, Chest Computed Tomogra phy 02/08/2025 4:12 AM EDT Narrative 02/08/2025 4:15 AM EDT ? [facility] ?[address] ?[place] [address] ? CT Scan Report ? Signed ? Patient: Delgado,Charbel ?MR#: [id number] ? : 1970 ?Acct:[id number] ? Age/Sex: 55 / M ?ADM Date: 02/07/25 ? Loc: HO.ED ? Attending Dr: ? Ordering Physician: Alexandria Sweeney MD ?? Date of Service: 02/08/25 ?? Procedure(s): CT angio chest PE protocol ?? Accession Number(s): [id number] ? cc: [facility]; Alexandria Sweeney MD ? Report Number: ?? [id number]: Total DLP = ??260.00 mGy-cm ? CLINICAL [...] DD/ 0412 ? TD/TT: 02/08/25 0412 ? Fixed Assets Accountant: ? Procedure Note Donlibradoter, Image - 02/08/[address] [place] [address] [address] Scan Report Signed Patient: Isaias Delgado#: [id number] : 1970Acct:[id number] Age/Sex: 55 / MADM Date: 02/07/25 Loc: HO.ED Attending Dr: Ordering Physician: Alexandria Sweeney MD Date of Service: 02/08/25 Procedure(s): CT angio chest PE protocol Accession Number(s): [id number] cc: [facility]; Alexandria Sweeney MD Report Number: [id number]: Total DLP = 260.00 mGy-cm CLINICAL HISTORY: [...] in OV> 02/08/25412 DD/ 1 TD/TT: 02/08/25411 Fixed Assets Accountant: [facility] External Provider IMG CT PROCEDURES Edited Result - Final * CT Head w/o Contrast (02/08/2025 4:05 AM EDT) Only the most recent of2 resultswithin the time period is included. Anatomical Region Laterality Modality Head, Neck Computed Tomogra phy 02/08/2025 4:05 AM EDT Narrative 02/08/2025 4:07 AM EDT ? [facility] ?[address] ?[place] [address] ? CT Scan Report ? Signed ? Patient: Charbel Delgado ?MR#: [id number] ? : 1970 ?Acct:[id number] ? Age/Sex: 55 / M ?ADM Date: 02/07/25 ? Loc: HO.ED ? Attending Dr: ? Ordering Physician: Alexandria Sweeney MD ?? Date of Service: 02/08/25 ?? Procedure(s): CT head/brain wo IV con ?? Accession Number(s): [id number] ? cc: [facility]; Alexandria Sweeney MD ? Report Number: ?? [id number]: Total DLP = ??618.00 mGy-cm ? CLINICAL [...] MD in OV> ?02/08/25 0406 ? DD/ ? TD/TT: 02/08/255 ? Fixed Assets Accountant: ? Procedure Note Moy, Image - 02/08/[address] [place] [address] [address] Scan Report Signed Patient: Isaias Delgado#: [id number] : 1970Acct:[id number] Age/Sex: 55 / MADM Date: 02/07/25 Loc: HO.ED Attending Dr: Ordering Physician: Alexandria Sweeney MD Date of Service: 02/08/25 Procedure(s): CT head/brain wo IV con Accession Number(s): [id number] cc: [facility]; Alexandria Sweeney MD Report Number: [id number]: Total DLP = 618.00 mGy-cm CLINICAL HISTORY: [...] in OV> 02/08/25405 DD/ 4 TD/TT: 02/08/25404 Fixed Assets Accountant: [facility] External Provider IMG CT PROCEDURES Edited Result - Final * High Sensitivity Troponin I (02/08/2025 1:52 AM EDT) Pathologist [facility] TROPONIN I HIGH SENSITIVITY <2.7 <3.5 - 35.0 ng/L [facility] Comment:The Connolly high sens itivity Troponin-I results should beused in conjunction with other diagnostic information suchas ECG, clinical observations and information, and patientsymptoms to aid in the diagnosis of NM. 02/08/2025 1:52 AM EDT 02/08/2025 1:55 AM EDT Generic External Data Provider LAB BLOOD ORDERAB LES Final Result [facility] [address] [place] [phone] * SARS-CoV-2 RNA, Influenza A/B, and RSV RNA, Ql NAAT (02/08/2025 1:52 AM EDT) [facility] Influenza A PCR NEGATIVE Negative [facility] Influenza B PCR NEGATIVE Negative [facility] Resp Syncy Virus RNA Qual PCR NEGATIVE Negative [facility] SARS COV2 PCR NEGATIVE Negative [facility] Comment:All test results mus t [...] use by authorized laboratories.Testing performed on the Cepheid GeneXpert utilizingreal-time RT-PCR.All SARS CoV2 and positive influenza A/B results arereported to [facility]. 02/08/2025 1:52 AM EDT 02/08/2025 1:55 AM EDT Generic External Data Provider LAB MICROBIOLOGY - GENERAL ORDERABLES Final Result Performing Organization Address [facility] Co de Phone Number [facility] [address] [place] [phone] * (ABNORMAL) Prothrombin Time-INR (02/08/2025 1:52 AM EDT) Only the most recent of2 resultswithin the time period is included. Prothrombin Time 15.3(H) 10.9 - 12.4 SEC [facility] INTERNATIONAL NORM RATIO 1.3(H) 0.9 - 1.1 [facility] Comment:INTERNATIONAL NORMAL IZED RATIO (INR) REFERENCE [...] ORDERAB LES Final Result Performing Organization Address [facility]/ZIP Co de Phone Number [facility] [address] [place] [phone] * (ABNORMAL) B Type Natriuretic Peptide (BNP) (02/08/2025 1:52 AM EDT) B Type Natriuretic Peptide 147(H) <100 pg/mL [facility] 02/08/2025 1:52 AM EDT 02/08/2025 1:55 AM EDT Generic External Data Provider LAB BLOOD ORDERAB LES Final Result Performing Organization Address [facility] de Phone Number [facility] [address] [place] [phone] * (ABNORMAL) Ammonia, Plasma (02/08/2025 1:52 AM EDT) Only the most recent of2 resultswithin the time period is included. Ammonia (P) 65(H) 13 - 55 umol/L [facility] 02/08/2025 1:52 AM EDT 02/08/2025 2:03 AM EDT Generic External Data Provider LAB BLOOD ORDERAB LES Final Result Performing Organization Address [facility] Number [facility] [address] [place] [phone] * Lipase (02/06/2025 12:39 AM EDT) Only the most recent of3 resultswithin the time period is included. Lipase 24 8 - 78 U/L [facility] 02/06/2025 12:3 9 AM EDT 02/06/2025 12:45 AM EDT Generic External Data Provider LAB BLOOD ORDERAB LES Final Result Performing Organization Address [facility] de Phone Number [facility] [address] [place] [phone] from Last 3 Months Insurance [facility] STANDARD HSN PARTIAL
--- OUTSIDE RECORDS SUMMARY | 2025-02-28 00:47 | XMS_ITS ---
Author Organization [employer] [facility] Address [address] [place] [address] Care Team Providers Care Chemical Laboratory Scientist Name Role Phone Unavailable Primary Care Provider Unavailabl e CHW Complex Status:Outreach In Progress (Enrolling) Start date:02/05/2025 Enrollment reason:ADT Feed Overview ED- Pt went to [facility] ED on 02/04/25. Case Team Name Relationship Phone Kiki Mims (Responsible Staff) Continued Care and Services Coordination
--- OUTSIDE RECORDS SUMMARY | 2025-02-28 00:47 | XMS_ITS | Data Portability ---
Author Organization [facility], Main Office Address [address] [place] [address] [address] [place] [address] Care Team Providers Care Corporate Law Assistant Name Role Phone [facility] OTHER Assessment Encounter Date Assessment Date [...] Address Organization Details Recorded Time Alcohol abuse 56970628 Active 2022 HALEY WYATT [address] [facility], [address], [place], [address], [facility] 16:10:20 Alcoholic cirrhosis 296727180 Active 2022 HALEY WYATT [address] [facility], [address], [place], [address], [facility] 3 16:10:32 Anemia 085320447 Active 2022 HALEY WYATT [address] [facility], [address], [place], [address], [facility] 3 16:10:45 Hepatic encephalop athy 60935423 Active 2022 HALEY WYATT [address] [facility], [address], [place], [address], [facility] 3 16:11:37 Acute respirator y failure 30406380 Active 2022 HALEY WYATT [address] [facility], [address], [place], [address], [facility] 3 16:12:23 Laboratory finding abnormal Active 2022 hypokalemi a hypomagnes ium pancytopen ua repleted in acute care. mag oxide 400 mg BID HALEY WYATT [address] [facility], [address], [place], [address], [facility] 16:40:30 Congestive heart failure 38210238 Active 2022 HALEY WYATT [address] [facility], [address], [place], [address], [facility] 3 16:25:07 Homeless 98562949 Active 2022 ANDREYHALEY GASPAR [address] [facility], [address], [place], [address], [facility] 3 16:55:00 Pancytopen ia 043666215 Active 2022 ANDREYHALEY GASPAR [address] [facility], [address], [place], [address], [facility] 3 21:48:09 Esophageal varices 50857451 Active 2022 HALEY WYATT [address] [facility], [address], [place], [address], [facility] 16:19:34 Problem Notes None recorded. [...] 110 mm[Hg] 70 mm[Hg] Lis Oconnell MD [address] [place] [address], [facility] [address], [place], [address], [facility] 08:21:06 Date Recorded Heart rate Respiratory rate Body temperature Oxygen saturation Oxygen saturation in Arterial blood by Pulse oximetry Systolic blood pressure Diastolic blood pressure Provider Name and Address Organization Details Last Updated DateTime 4 67 /min 16 /min 97.6 [degF] 95 % 95 % 107 mm[Hg] 66 mm[Hg] BRADY HOGAN NP [address] [facility], [address], [place], [address], [facility] 4 10:20:23 Social History Question Answer Notes LastModified by Organizat ion Details LastModified Time Tobacco Smoking Status Former Smoker ANDREY RODRIGUEZHALEY CRUZ [address] [facility], [address], [place], [address], [facility] 09/12/2023 16:57:06 Do You Have An [...] Do You Have A Medical Power Of Order Entry Administrator? No HCP/brother Information not available 09/12/2023 What [...] mcg/0.3 mL dose 3 completed Mojgan jain [facility] 11/10/2023 13:12:58 Tdap 1 completed Mojgan jain [facility] 03/01/2024 11:01:29 Td (adult), 5 Lf tetanus toxoid, preservative free, adsorbed 7 completed Mojgan jain [place] [facility] 03/01/2024 11:06:00 Past Encounters Encounter ID Performer Location Encounter Start Date Encounter Closed Date Diagnosis/Indication Diagnosis SNOMED-CT Code Diagnosis ICD10 Code Diagnosis Note [id number] HALEY WYATT [facility] on [address] [place] [address] 09/12/2023 08:36:44 09/15/2023 08:04:55 Hepatic encephalopathy 61831686 K76.82 resolved in acute care/see hpistarted on lactuloser ifaximin 550 mg BIDlactulo se 40 g TID. Acute resp iratory failure 78343782 J96.00 with hypoxia d/t to acute on chronic heart failure-di uresed w/IV lasix resolved in acute care Anemia 018143471 D64.9 see hpiCT scan with distal esophageal varices.- EGD suspected gastric varies as source of bleedfollo w up with GI in 4 weeks for repeat EGD Congestive heart failure 65708501 I50.9 with preserved ejection fractionCT scan showed small plueral effusionCX R with bibasilar opacitiesc ontinue furosemide 20 mg BIDcontinu e spironolac tone 12.5 mg BIDlow salt diet.monit or weight Alcohol abuse 09504259 F 10.10 with acute withdrawal in acute care tx with phenobarbi germania taper.decl ined recovery support in acute carethiami ne 100 mg dailyfolic acid 1 mg daily Bleeding g astric varices 30950095 I86.4 source of anemiaomep razole [address] dailysucra lfate 1 gm BIDcontinu e PPI and sucralfate Homeless 91423105 Z59.00 Social service refer for community resources. [id number] Lis Oconnell MD [facility] on [address] [place] [address] 09/13/2023 05:12:10 09/15/2023 08:33:31 Acute on chronic diastolic heart failure 937259792 I50.33 improved:s pironolact one 12.5 mg bidfurosem eliana 20 mg bidwill monitor Alcohol abuse 86766247 F 10.10 thiamine 100 mg dailyfolic acid 1 gm dailyinter disciplina ry support for sobrietywi ll monitor and support as needed Bleeding e sophageal varices 57643646 I85.01 s/p blood transfusio ns, octeotride , banding/he mospray:om eprazole 40 mg dailysucra lfate 1 gm bidwill monitor Alcoholic cirrhosis 4200 96819 K70.31 Xifaxan 550 mg bidspirono lactone 12.5 mg bidfurosem eliana 20 mg bidwill monitor Hepatic encephalopathy 22400099 K76.82 lactulose 40 gm tidwill monitor [id number] HALEY WYATT [facility] on [address] [place] [address] 09/18/2023 11:37:36 09/20/2023 15:12:00 Congestive heart failure 34572534 I50.9 continue furosemide 20 mg BIDcontinu e spironolac tone 12.5 mg BIDlow salt diet.monit or weight Alcohol abuse 79355772 F 10.10 will consider acamprosta te 666 mg TID.thiami ne 100 mg dailyfolic acid 1 mg daily Bleeding g astric varices 49497000 I86.4 source of anemiaomep razole [address] dailysucra lfate 1 gm BIDcontinu e PPI and sucralfate Hepatic encephalopathy 09003837 K76.82 resolved in acute care/see hpistarted on lactuloser ifaximin 550 mg BIDlactulo se 40 g TID.- reports loose stool x's 1 daily. will continue to monitor for now . [id number] HALEY WYATT [facility] on [address] [place] [id number] 10/06/2023 10:25:53 10/18/2023 12:16:47 Altered mental status 158626380 R41.82 see hpiconcern for hepatic encephalop athy due to hxsend to ER for further evaluation [id number] HALEY WYATT [facility] on [address] [place] [id number] 10/12/2023 13:49:36 10/18/2023 15:10:16 Hepatic encephalopathy 45363959 K76.82 resolved in acute care/see hpiimaging with no acute processCon tinue lactulose, rifaximin, Lasix, spironolac toneFollow -up outpatient GI Congestive heart failure 11595098 I50.9 continue furosemide 20 mg BIDcontinu e spironolac tone 12.5 mg BIDlow salt diet.monit or weight Pancytopenia 850378743 D 61.818 wbc 3.41-Hgb 7.3-HCT 23.2Possib ly due to alcohol abuseWill continue to monitor CBC [id number] HALEY WYATT [facility] on [address] [place] [id number] 10/16/2023 13:03:21 11/22/2023 15:10:28 Hepatic encephalopathy 23993445 K76.82 resolved in acute care/see hpiimaging with no acute processCon tinue lactulose, rifaximin, Lasix, spironolac toneFollow -up outpatient GI Congestive heart failure 92172866 I50.9 continue furosemide 20 mg BIDcontinu e spironolac tone 12.5 mg BIDlow salt diet.monit or weight Pancytopenia 330058313 D 61.818 see aboveimpro kiki hgb 8.8- Plt 68Possibly due to alcohol abuseWill continue to monitor CBC [id number] HALEY WYATT [facility] on [address] [place] [address] 10/24/2023 11:18:12 11/03/2023 11:47:28 Hepatic encephalopathy 30366136 K76.82 alert and oriented x's 2 today unsure of date.resol kiki in acute care/see hpiimaging with no acute processCon tinue lactulose, rifaximin, Lasix, spironolac toneFollow -up outpatient GI Congestive heart failure 84886126 I50.9 Stablke, no reported sxcontinue furosemide 20 mg BIDcontinu e spironolac tone 12.5 mg BIDlow salt diet.monit or weight Pain of le ft shoulder joint 4537332658 8888514 M25.512 see hpixray 3 viewstylen ol 975 mg scheduledm otrin 600 mg scheduled. PT referral for pain with abduction. [id number] HALEY WYATT [facility] on [address] [place] [id number] 10/27/2023 09:08:50 11/03/2023 12:28:46 Hepatic encephalopathy 91420345 K76.82 appears to be a baseline status, however he appears disoriente d at times.Cont inue lactulose, rifaximin, Lasix, spironolac toneFollow -up outpatient GI Congestive heart failure 23991513 I50.9 Stablecont inue furosemide 20 mg BIDcontinu e spironolac tone 12.5 mg BIDlow salt diet.monit or weight Pain of le ft shoulder joint 8075137298 0783484 M25.512 Xray completed, results reviewed with patient: Mild degenerati on of the left shoulder; no acute fracture or dislocatio n. continue with:tylen ol 975 mg scheduledm otrin 600 mg scheduled. PT referral for pain with abduction. [id number] HALEY WYATT [facility] on [address] [place] [id number] 11/08/2023 08:13:22 11/22/2023 16:43:01 Daisy-Zee tear 487064154 K22.6 2 days of melena with coffee-kell und emesis on presentati on.GI consulted and performed upper endoscopy on 10/31, evidence of daisy zee tear, gastric ulcers s/p clip placement. continue PPI omeprazole 40 mg twice daily.Carv edilol started as per recommenda tions for esophageal varicesPat ient was advised to avoid NSAID Esophageal varices 25115 008 I85.00 Started on carvedilol 6.25 mg bidomepraz ole 40 mg bidsucralf ate 1 gm BID Anemia 767137147 D64.9 Hgb 6.4 on presentati on to acute careDue to upper GI bleed,Rece ived 3 units of PRBC in acute careCarved ilol started for varices [id number] HALEY WYATT [facility] on [address] [place] [phone] 11/14/2023 07:57:53 12/01/2023 10:08:54 Daisy-Zee tear 267574783 K22.6 11/14 there has been no reported couging and vomiting. 2 days of melena with coffee-kell und emesis on presentati on.GI consulted and performed upper endoscopy on 10/31, evidence of daisy zee tear, gastric ulcers s/p clip placement. continue PPI omeprazole 40 mg twice daily.Carv edilol started as per recommenda tions for esophageal varicesPat ient was advised to avoid NSAID Esophageal varices 63580 008 I85.00 stableStar forrest on carvedilol 6.25 mg bidomepraz ole 40 mg bidsucralf ate 1 gm BID Anemia 636128441 D64.9 11/14will recheck labspatien t denies excess fatigue, weakness, shortness of breathdoes not appear pale, color normal. Hgb 6.4 on presentati on to acute careDue to upper GI bleed,Rece ived 3 units of PRBC in acute careCarved ilol started for varices [id number] HALEY WYATT [facility] on [address] [place] [id number] 11/17/2023 08:07:13 12/01/2023 11:37:06 Daisy-Zee tear 683869973 K22.6 stable, There has been no new reported sx.2 days of melena with coffee-kell und emesis on presentati on.GI consulted and performed upper endoscopy on 10/31, evidence of daisy zee tear, gastric ulcers s/p clip placement. continue PPI omeprazole 40 mg twice daily.Carv edilol started as per recommenda tions for esophageal varicesPat ient was advised to avoid NSAID Esophageal varices 26827 008 I85.00 stableStar forrest on carvedilol 6.25 mg bidomepraz ole 40 mg bidsucralf ate 1 gm BID Anemia 324015688 D64.9 11/15: hgb 8.0 hct 25.6will recheck labs Hgb 6.4 on presentati on to acute careDue to upper GI bleed,Rece ived 3 units of PRBC in acute careCarved ilol started for varices [id number] Lis Oconnell MD [facility] on [address] [place] [phone] 11/24/2023 08:20:43 11/29/2023 17:59:33 Alcohol abuse 33282011 F10.10 thiamine 100 mg dailyfolic acid 1 gm dailyMVI dailyacamp rosate 666 mg tidinterdi sciplinary support for sobrietywi ll monitor and support as needed Upper gastrointestinal bleeding 68435787 K92.89 with history varices, Daisy Zee tear:sucra lfate 1 gm bidomepraz ole 40 mg [id number] monitoravo id NSAIDs Alcoholic cirrhosis 4200 41845 K70.31 Xifaxan 550 mg bidspirono lactone 12.5 mg bidfurosem eliana 20 mg dailylactu lose 40gm tidwill monitor Esophageal varices 32131 008 I85.00 see meds for history UGI bleed:also carvedilol 6.25 mg bidwill monitor [id number] BRADY HOGAN NP [facility] on [address] [place] [address] 11/28/2023 09:53:56 12/01/2023 12:57:26 Alcohol abuse 63972449 F10.10 thiamine 100 mg dailyfolic acid 1 gm dailyMVI dailyacamp rosate 666 mg tidinterdi sciplinary support for sobrietywi ll monitor and support as needed Upper gastrointestinal bleeding 42566783 K92.89 with history varices, Daisy Zee tear:sucra lfate 1 gm bidomepraz ole 40 mg [id number] monitoravo id NSAIDs Alcoholic cirrhosis 4200 10766 K70.31 Xifaxan 550 mg bidspirono lactone 12.5 mg bidfurosem eliana 20 mg dailylactu lose 40gm tidwill monitor Esophageal varices 92146 008 I85.00 see meds for history UGI [...] [facility] Charbel Delgado [id number] Charbel Delgado 11/14/2023 1 [place] [facility] Charbel Delgado [id number] Charbel Delgado 11/17/2023 1 [place] [facility] [id number] Charbel Delgado 11/24/2023 1 [place] [facility] [id number] Charbel Delgado 11/28/2023 1 [place] [facility] [id number] Charbel Delgado Notes Date Note Type Note [...] a few weeks. Molst: HALEY Cummings [address] [facility], [address], [place], [address], [facility] 11/08/2023 16:31:23 11/14/2023 text/html Patient is 53-ye ar-old male seen today for acute rounding visit. Today he is stable, he was sent to ED on 11/09 for hgb noted 7.0 and had repeat labs in ED hgb 8.1. He returned to [facility] the same evening and has been stable. [...] in a few weeks. HALEY WYATT [address] [facility], [address], [place], [address], [facility] 11/14/2023 21:53:05 11/17/2023 text/html Patient is [...] no acute nursing concerns. HALEY WYATT [address] [facility], [address], [place], [address], [facility] 11/17/2023 13:21:44 11/24/2023 text/html This 53 year old male [facility] care resident is seen today for routine rounding visit and acute rounding visit. Medical history is remarkable for history of alcohol use disorder with alcoholic cirrhosis, HFpEF, hypertension, ADHD, anxiety, depression Patient was sent out of facility to ER at [facility] on 10/30/23 with melena and coffee-ground [...] full code assumed Lis Oconnell MD [address] [facility], [address], [place], [address], [facility] 11/24/2023 12:23:26 11/28/2023 text/html seen today for a cute rounding visit, CAOx3 he is complaining about being bored, independent in room, gait steady, mood stable, staff report no concerns BRADY HOGAN NP [address] [facility], [address], [place], [address], [facility] 11/28/2023 10:23:34
[2025-02-28 00:53] LABS: MANUAL DIFF FLAG NO
[2025-02-28 00:56] LABS: Basophils Absolute Auto 0.1 X10*3/uL (0.0-0.2); Basophils Percent Auto 1.3 % (0-2); Eosinophils Absolute Auto 0.2 X10*3/uL (0.0-0.4); Eosinophils Percent Auto 4.5 % (0-4); Hematocrit 25.4 % (42.0-52.0); Imm Gran Abs Auto 0.01 X10*3/uL (0.00-0.03); Imm Gran Pct Auto 0.3 % (0.0-0.4); Lymphocytes Absolute Auto 1.2 X10*3/uL (1.2-4.9); Lymphocytes Percent Auto 31.1 % (20-40); Mean Corpuscular HGB Conc 31.5 g/dl (31.0-36.0); Mean Corpuscular Hemoglobin 29.4 pg (27.0-33.0); Mean Corpuscular Volume 93.4 fL (80.0-98.0); Mean Platelet Volume 11.1 fL (9.4-12.4); Monocytes Absolute Auto 0.4 X10*3/uL (0.1-1.2); Neutrophils Percent Auto 52.8 % (45-73); Platelet Count 64 X10*3/uL (160-400); Red Blood Count 2.72 X10*6/uL (4.60-5.80); Red Cell Distribution Width 14.9 % (11.0-16.0); White Blood Count 3.8 X10*3/uL (4.8-10.8)
--- NOTE | 2025-02-28 01:00 | PC.NURSE ---
pt placed on 2L NC O2 85% on RA. pt resting comfortably. bilateral lower extremity edema noted. MD aware
[2025-02-28 01:15] LABS: B Type Natriuretic Peptide 166 pg/mL (<100)
[2025-02-28 01:18] LABS: Alanine Aminotransferase 7 U/L (0-40); Albumin Level 3.7 g/dL (3.5-5.0); Alkaline Phosphatase 163 U/L (39-117); Anion Gap 13 (12-20); Aspartate Amino Transferase 35 U/L (5-37); Bilirubin Direct 0.2 mg/dL (0.0-0.5); Bilirubin Total 0.3 mg/dL (0.0-1.0); Blood Urea Nitrogen 14 mg/dL (9-16); Calcium 8.4 mg/dL (8.4-10.2); Carbon Dioxide 18 mmol/L (22-29); Chloride 115 mmol/L (96-108); Creatinine Clr Calc Pharmacy 89.4; Estimated Glomerular Filt Rate > 60; Ethanol 392 mg/dL; Glucose Random 110 mg/dL (60-115); Magnesium 1.8 mg/dL (1.6-2.6); Potassium 3.6 mmol/L (3.3-5.1); Sodium 142 mmol/L (135-145); Total Protein 7.9 g/dL (6.5-8.0); Troponin-I High Sensitivity < 2.7 ng/L (<3.5-35.0)
--- NOTE | 2025-02-28 04:16 | PC.NURSE ---
pt not complicant with NC, removes to pick nose, then nose bleeds. pt now 80% on RA
[2025-02-28] MEDS: Furosemide 20 MG/2 ML VIAL IVPUSH (05:08)
--- NOTE | 2025-02-28 05:16 | P.HPHOSP_ITS ---
History of Present Illness Date of Service: 02/28/25 Chief Complaint: Alcohol intoxication This is a 55-year-old male with pertinent history of alcohol use disorder with alcoholic cirrhosis, gastroesophageal reflux disease, congestive heart failure with preserved ejection fraction who presents to the emergency department for evaluation after alcohol intoxication. Patient presents to the ER as he states he needs a place to sleep. Admits to drinking alcohol on the day of presentation. Does endorse bilateral lower extremity leg swelling and dyspnea which is worse when lying flat. Unclear if he is compliant with home medications. Patient is a poor historian. In the emergency department, patient was satting 81% on room air. Imaging with pulmonary edema and BNP found to be elevated. Patient was given IV Lasix. Denies abdominal pain, hematemesis, nausea, vomiting, fever, chills, chest pain, palpitations, changes in urinary or bowel habits. Review of Systems 2 Constitutional: Constitutional: Reports fatigue and Reports malaise Cardiovascular: Cardiovascular: Reports leg edema and Reports orthopnea Gastrointestinal: Gastrointestinal: Reports no additional gastrointestinal complaints Genitourinary: Genitourinary: Reports no additional male genitourinary complaints Endocrine: Endocrine: Reports fatigue PMFSH Medical History Alcohol abuse Acute hypoxemic respiratory failure Anemia Alcohol use disorder Pneumonia Alcohol withdrawal syndrome Pancytopenia Alcohol abuse Thrombocytopenia Esophageal varices Acute on chronic anemia Alcoholic liver disease Aspiration pneumonia Thrombocytopenia Malnutrition CHF (congestive heart failure) Anemia Hypomagnesemia Cirrhosis Thrombocytopenia Acute on chronic anemia CHF (congestive heart failure) Anemia Alcohol abuse Surgical History No history of previous surgery Social History Household Members: Other Household Members Other:: homeless Housing: Homeless Housing Other:: Homeless alf Do you presently have visiting nurse or other home services: No Unable to assess alcohol history related to: Refusing to respond Alcohol intake: current Alcohol intake frequency: 3 or more drinks per day Alcohol type: beer and hard liquor Comment: 1 assist to bathroom Patient Tobacco Use Status: Former Tobacco user Tobacco use type: Cigarette Smoked in Last 30 Days: No Second Hand Smoke Exposure: No Use of substances other than those prescribed or required for medical reasons: No Advance Directives: Yes Advance Directives on File: Yes Advance Directives Date on File: 08/31/23 service: No Meds Allergies Allergy/AdvReac Type Severity Reaction Status Date / Time No Known Allergies Allergy Verified 02/28/25 00:33 [No Known Allergies*] Active Medications: Current Medications Acetaminophen (Acetaminophen 325 Mg Tablet) 650 mg PO Q6H PRN PRN Reason: Pain, Mild 1-3,fever,headache Calcium Carbonate (Calcium Carbonate 750 Mg Tab.Chew) 750 mg PO Q4H PRN PRN Reason: Heartburn Furosemide (Furosemide 40 Mg/4 Ml Vial) 40 mg IVPUSH DAILY JOSE MANUEL; Protocol Magnesium Hydroxide (Milk Of Magnesia 30 Ml Oral.Susp) 30 ml PO DAILY PRN PRN Reason: Constipation Melatonin (Melatonin 3 Mg Tablet) 6 mg PO BEDTIME PRN PRN Reason: Insomnia Ondansetron HCl (Ondansetron Hcl 4 Mg/2 Ml Vial) 4 mg IVPUSH Q8H PRN PRN Reason: Nausea and Vomiting Sodium Chloride (0.9 % Sodium Chloride Flush 3 Ml Syringe) 3 ml IVFLUSH QSHIFT [facility] Home Medications ?Medication ?Instructions ?Recorded ?Confirmed ?Last Taken ?Type lactulose 10 gram/15 mL oral 30 ml PO TID 02/01/25 02/15/25 Unknown History solution omeprazole 40 mg capsule,delayed 40 mg PO DAILY@0630 02/01/25 02/15/25 Unknown History release Physical Exam 2 Vital Signs and Narrative: Vital Signs: Last Vital Signs Temp 98.2 F 02/28/25 04:37 Pulse 80 02/28/25 04:37 Resp 16 02/28/25 04:37 BP 103/52 L 02/28/25 05:08 Pulse Ox 80 L 02/28/25 04:37 O2 Del Method Room Air 02/28/25 04:37 O2 Flow Rate 2 02/28/25 01:09 BMI result Body Mass Index 19.4 Middle-aged male lying in bed in mild distress on supplemental oxygen Neck supple Regular rate and rhythm, S1-S2 heard Bilateral crackles present Abdomen soft nontender, no guarding, no rigidity Patient is awake, alert and oriented x3 ; no focal motor deficit Psych: Normal mood Bilateral pedal edema Results Labs 02/28/25 00:49 02/28/25 00:49 Labs: Laboratory Results - last 24 hr 02/28/25 00:49 MCV 93.4 MCH 29.4 MCHC 31.5 RDW 14.9 Plt Count 64 L MPV 11.1 Immature Gran % (Auto) 0.3 Neut % (Auto) 52.8 Lymph % (Auto) 31.1 [place] % (Auto) 10.0 Eos % (Auto) 4.5 H Baso % (Auto) 1.3 Lymph # (Auto) 1.2 [place] # (Auto) 0.4 Eos # (Auto) 0.2 Baso # (Auto) 0.1 Abs Immat Gran (auto) 0.01 Absolute Neuts (auto) 2.0 Absolute Nucleated RBC 0.000 Nucleated RBC % (auto) 0.0 Anion Gap 13 Estim Creat Clear Calc 89.4 Estimated GFR > 60 Random Glucose 110 Calcium 8.4 Magnesium 1.8 Total Bilirubin 0.3 Direct Bilirubin 0.2 AST 35 ALT 7 Alkaline Phosphatase 163 H B-Natriuretic Peptide 166 H Total Protein 7.9 Albumin 3.7 Ethyl Alcohol 392 H* Assessment and Plan (1) CHF (congestive heart failure): Status: Acute (2) Hypoxic: Status: Acute (3) Alcoholic intoxication: Status: Acute Plan This is a 55-year-old male with pertinent history of alcohol use disorder with alcoholic cirrhosis, gastroesophageal reflux disease, congestive heart failure with preserved ejection fraction who presents to the emergency department for evaluation after alcohol intoxication. #. Acute hypoxemic respiratory failure due to acute on chronic congestive heart failure with preserved ejection fraction: Will admit patient with supplemental oxygen. Initiating IV diuresis. Strict I's and O's. Low-salt diet. #. Alcohol use disorder: Initiated on phenobarb protocol in the ER due to concerns for withdrawal. Patient on thiamine and folic acid. Consulted Addiction Team #. Alcoholic cirrhosis with chronic thrombocytopenia: On lactulose and spironolactone. Defer prophylactic Lovenox #. Gastroesophageal reflux disease: On PPI and sucralfate Med rec pending DVT prophylaxis: Mechanical Full code Admit as inpatient and will require two night minimum hospital stay for supplemental oxygen, IV diuresis (as above), which is not possible in a lesser acute setting. Quality Stroke Does the patient have a stroke diagnosis?: No VTE Prior VTE?: No VTE Risk Level:: Medical - moderate - high VTE Device Contraindication: N/A - Device Ordered VTE Drug Contraindication: Treatment Not Indicated
--- NOTE | 2025-02-28 05:26 | PC.NURSE ---
private branch exchange service adviser done with security at bedside. belongings placed in austyn port of shelf 4. 20g IV placed to L upper arm. pt medicated per MAR
[2025-02-28] MEDS: PHENobarbitaL sodium 130 MG/ML IM ONCE 221 MG IM (06:21)
[2025-02-28] MEDS: 0.9 % Sodium Chloride Flush 3 ML SYRINGE IVFLUSH ×3 (08:44→20:58)
[2025-02-28] MEDS: Thiamine HCL 100 MG TABLET PO (08:44)
[2025-02-28] MEDS: Furosemide 40 MG/4 ML VIAL IVPUSH (08:44)
--- NOTE | 2025-02-28 09:16 | PHA.MEDREC ---
Addendum entered by Kemi Cid [facility] 02/28/25 09:26: Reviewed by pharmacist Original Note: Pharmacy Consult ? Medication Reconciliation Pharmacy has completed the medication reconciliation. Spoke with patient and patient was poor historian and did not know any of his medications. Utilized discharge packet from 02/18 to confirm med rec. Spoke with outpatient pharmacy downstairs to confirm the Levofloxacin; they confirmed they delivered a 12 day supply of the Levofloxacin 750mg tab on 02/13 to the patient before he left our facility and have another regimen on hold from another DC from on 02/18 that was too soon too fill at the time of discharge.
--- NOTE | 2025-02-28 09:29 | MHC.CM.PN ---
CM MET WITH PT AT BEDSIDE. PT IS ON 02 RX AT PRESENT. PT L[facility]ES [facility] ([facility] AND [facility]. PT CONTINUES TO CONSUME ETOH AND DECLINES ASSIST. +THRIVE ASSESSMENT, RESOURCE BOOKLET PROVIDED. + HCP ON FILE/VERIFED. PCP [facility] DP: PT WILL RETURN TO STREET VS PLAN FOR INTERVENTION WITH CARE TEAM? PT WILL USE [facility] FOR TRANSPORT. CM WILL CONTINUE TO FOLLOW FOR ANY CHANGE TO DC PLAN/NEEDS.
--- NOTE | 2025-02-28 09:29 | PC.NURSE ---
patient started on phenobarb protocol, first IM injection scheduled for 0900. This RN brought medication into patients room to administer medication but patient refused, states that he is afraid of needles and does not want it. notified and charted refusal in MAR
--- NOTE | 2025-02-28 11:35 | PM.EVENT ---
Event Note Date of Service: 02/28/25 Event Note: seen and evaluated this morning O2 drops on RA to late 80s continue Lasix IV wean O2 down as tolerated refusing PHenobarb , will continue to monitor on CIWA for now Sectioned 35, will need to call PD before discharge Time Spent With Patient Time: Total time managing care of this patient today ____ minutes.
--- NOTE | 2025-02-28 12:55 | MHC.CARE ---
CARE Team and Dr. Del Rosario completed Section 35, warrant of apprehension issued 02/27 and expires on 03/06. T/w notifed Pts case manger and attending hospitalist.
--- NOTE | 2025-02-28 14:44 | HO.ADDICTCON ---
History of Present Illness Date of Service: 02/28/2025 Chief Complaint: alcohol intoxication Reason for Consult: AUD Sources of Information: patient interviewed and chart reviewed HPI Narrative: Patient is a 55 year old male with AUD, medically admitted with CHF. 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 Patient seen in room 360. He is awake, alert, pleasant and engaged in interview. He is oriented to self and date only (month and year). Did not recall that he was in the hospital or why he was here. Presenting as calm, watching TV. Slight tremor noted. no diaphoresis or restlessness noted. VSS. no c/o headache or anxiety Past Psychiatric History: hx of 3 prior detox admissions for alcohol use. does not have outpatient psychiatric providers Pt reports hx of one SI attempt via overdose on pills at the age of 17. Review of Systems Constitutional: Reports as per HPI Diagnostics Vital Signs (24Hr): Vital Signs - 24 hr 02/28/25 00:31 02/28/25 01:03 02/28/25 01:09 Temperature 97.8 F Pulse Rate 80 75 77 Respiratory Rate 18 16 18 Blood Pressure 110/55 L Pulse Oximetry 89 L 85 L 94 Oxygen Delivery Method Room Air Room Air Nasal Cannula Oxygen Flow Rate 2 02/28/25 04:37 02/28/25 05:08 02/28/25 06:22 Temperature 98.2 F 98.3 F Pulse Rate 80 74 Respiratory Rate 16 20 Blood Pressure 98/49 L 103/52 L 99/41 L Pulse Oximetry 80 L 98 Oxygen Delivery Method Room Air Nasal Cannula Oxygen Flow Rate 2 02/28/25 08:38 Temperature 97.2 F Pulse Rate 85 Respiratory Rate 16 Blood Pressure 120/57 L Pulse Oximetry 89 L Oxygen Delivery Method Nasal Cannula Oxygen Flow Rate 3 BMI result Body Mass Index 20.1 Labs 02/28/25 00:49 02/28/25 00:49 Labs: Laboratory Results - last 48 hr 02/28/25 00:49 WBC 3.8 L RBC 2.72 L Hgb 8.0 L Hct 25.4 L MCV 93.4 MCH 29.4 MCHC 31.5 RDW 14.9 Plt Count 64 L MPV 11.1 Immature Gran % (Auto) 0.3 Neut % (Auto) 52.8 Lymph % (Auto) 31.1 [place] % (Auto) 10.0 Eos % (Auto) 4.5 H Baso % (Auto) 1.3 Lymph # (Auto) 1.2 [place] # (Auto) 0.4 Eos # (Auto) 0.2 Baso # (Auto) 0.1 Abs Immat Gran (auto) 0.01 Absolute Neuts (auto) 2.0 Absolute Nucleated RBC 0.000 Nucleated RBC % (auto) 0.0 Sodium 142 Potassium 3.6 Chloride 115 H Carbon Dioxide 18 L Anion Gap 13 BUN 14 Creatinine 0.71 Estim Creat Clear Calc 89.4 Estimated GFR > 60 Random Glucose 110 Calcium 8.4 Magnesium 1.8 Total Bilirubin 0.3 Direct Bilirubin 0.2 AST 35 ALT 7 Alkaline Phosphatase 163 H Troponin I High Sens < 2.7 B-Natriuretic Peptide 166 H Total Protein 7.9 Albumin 3.7 Ethyl Alcohol 392 H* Mental Status Exam Mental Status Exam Patient Appearance: Appropriate Patient Orientation: Person Level of Consciousness: Awake and Alert Patient Behavior: Appropriate Affect Description: Calm Speech Pattern: Clear Hallucinations: None Thought Process: Slowed Thinking Thought Content: positive for Ke[place] Judgement: Poor Medications Medications Current Medications Acetaminophen (Acetaminophen 325 Mg Tablet) 650 mg PO Q6H PRN PRN Reason: Pain, Mild 1-3,fever,headache Calcium Carbonate (Calcium Carbonate 750 Mg Tab.Chew) 750 mg PO Q4H PRN PRN Reason: Heartburn Furosemide (Furosemide 40 Mg/4 Ml Vial) 40 mg IVPUSH DAILY [facility]; Protocol Last Admin: 02/28/25 08:44 Dose: 40 mg Magnesium Hydroxide (Milk Of Magnesia 30 Ml Oral.Susp) 30 ml PO DAILY PRN PRN Reason: Constipation Melatonin (Melatonin 3 Mg Tablet) 6 mg PO BEDTIME PRN PRN Reason: Insomnia Ondansetron HCl (Ondansetron Hcl 4 Mg/2 Ml Vial) 4 mg IVPUSH Q8H PRN PRN Reason: Nausea and Vomiting Pharmacy Consult (Consult Rx Etoh Phenob Im/Po) 1 each MISCELLANE ONCE PRN; Protocol PRN Reason: Consult order Phenobarbital (Phenobarbital 15 Mg Tablet) 45 mg PO BID [facility] Stop: 03/02/25 09:01 Phenobarbital (Phenobarbital 15 Mg Tablet) 15 mg PO BID [facility] Stop: 03/04/25 09:01 Phenobarbital (Phenobarbital 15 Mg Tablet) 15 mg PO DAILY [facility] Stop: 03/06/25 09:01 Sodium Chloride (0.9 % Sodium Chloride Flush 3 Ml Syringe) 3 ml IVFLUSH QSHIFT [facility] Last Admin: 02/28/25 08:44 Dose: 3 ml Thiamine HCl (Thiamine Hcl 100 Mg Tablet) 100 mg PO DAILY [facility] Last Admin: 02/28/25 08:44 Dose: 100 mg Allergies Allergies Allergy/AdvReac Type Severity Reaction Status Date / Time No Known Allergies Allergy Verified 02/28/25 00:33 [No Known Allergies*] Assessment & Plan Assessment & Plan (1) Alcohol use disorder: Status: Acute Code(s): F10.90 - Alcohol use, unspecified, uncomplicated Assessment and Plan: pheno taper patient not oriented to place or situation. Should not be able to d/c until medically cleared continue to decline any intervention or referral for AUD, including medications or referrals for treatment or support. Total time managing care of this patient today __20__ minutes. [facility] Past Medical History Medical History Alcohol use disorder Alcohol abuse Acute hypoxemic respiratory failure Anemia Pneumonia Alcohol withdrawal syndrome Pancytopenia Alcohol abuse Thrombocytopenia Esophageal varices Acute on chronic anemia Alcoholic liver disease Aspiration pneumonia Thrombocytopenia Malnutrition CHF (congestive heart failure) Anemia Hypomagnesemia Cirrhosis Thrombocytopenia Acute on chronic anemia CHF (congestive heart failure) Anemia Alcohol abuse Surgical History Surgical History No history of previous surgery Social History Social History Household Members: None Household Members Other:: homeless Housing: Homeless Housing Other:: Homeless detention Do you presently have visiting nurse or other home services: No Unable to assess alcohol history related to: Refusing to respond Alcohol intake: current Alcohol intake frequency: 3 or more drinks per day Alcohol type: beer and hard liquor Comment: 1 assist to bathroom Patient Tobacco Use Status: Former Tobacco user Tobacco use type: Cigarette Second Hand Smoke Exposure: No Advance Directives Date on File: 07/13/23 service: No
[2025-02-28] MEDS: Acetaminophen 325 MG TABLET 650 MG PO (17:53)
[2025-02-28] MEDS: hydrOXYzine HCL 25 MG TABLET PO (21:00)
[2025-02-28] MEDS: Melatonin 3 MG TABLET 6 MG PO (21:00)
[2025-03-01 03:04] VITALS: BP 118/54; PULSE 71; RESP 16; TEMP 36.6; O2SAT 96
[2025-03-01 06:19] LABS: MANUAL DIFF FLAG NO
[2025-03-01 06:25] LABS: Eosinophils Absolute Auto 0.2 X10*3/uL (0.0-0.4); Eosinophils Percent Auto 5.8 % (0-4); Hematocrit 26.5 % (42.0-52.0); Hemoglobin 8.3 g/dl (14.0-18.0); Imm Gran Abs Auto 0.02 X10*3/uL (0.00-0.03); Imm Gran Pct Auto 0.7 % (0.0-0.4); Lymphocytes Absolute Auto 0.8 X10*3/uL (1.2-4.9); Lymphocytes Percent Auto 27.5 % (20-40); Mean Corpuscular HGB Conc 31.3 g/dl (31.0-36.0); Mean Corpuscular Hemoglobin 28.8 pg (27.0-33.0); Mean Platelet Volume 10.7 fL (9.4-12.4); Monocytes Absolute Auto 0.3 X10*3/uL (0.1-1.2); Monocytes Percent Auto 8.5 % (2-11); Neutrophils Absolute Auto 1.7 x10*3/uL (2.0-8.3); Neutrophils Percent Auto 56.5 % (45-73); Red Blood Count 2.88 X10*6/uL (4.60-5.80); Red Cell Distribution Width 14.8 % (11.0-16.0)
[2025-03-01 06:26] LABS: Platelet Count 55 X10*3/uL (160-400)
[2025-03-01 06:40] LABS: Anion Gap 12 (12-20); Blood Urea Nitrogen 17 mg/dL (9-16); Calcium 8.5 mg/dL (8.4-10.2); Carbon Dioxide 21 mmol/L (22-29); Chloride 111 mmol/L (96-108); Creatinine Clr Calc Pharmacy 88.9; Estimated Glomerular Filt Rate > 60; Glucose Random 82 mg/dL (60-115); Potassium 3.4 mmol/L (3.3-5.1); Sodium 141 mmol/L (135-145)
[2025-03-01] MEDS: Thiamine HCL 100 MG TABLET PO (07:18)
[2025-03-01] MEDS: Furosemide 40 MG/4 ML VIAL IVPUSH (07:18)
[2025-03-01] MEDS: 0.9 % Sodium Chloride Flush 3 ML SYRINGE IVFLUSH ×3 (07:18→21:29)
[2025-03-01] MEDS: Acetaminophen 325 MG TABLET 650 MG PO ×2 (07:18→16:15)
[2025-03-01 07:22] VITALS: BP 113/55; PULSE 73; RESP 20; TEMP 36.9; O2SAT 94
--- NOTE | 2025-03-01 12:07 | HO.PM.IMPN ---
Subjective Subjective Date of Service: 03/01/25 Interval History: Seen and evaluated this morning Feels better denies any complaints Still hypoxic on RA requiring O2 supplement Review of Systems Review of Systems: Yes all other systems are reviewed and are negative Physical Exam Vital Signs: Vital Signs: Last Vital Signs Temp 98.4 F 03/01/25 07:22 Pulse 73 03/01/25 07:22 Resp 20 03/01/25 07:22 BP 113/55 L 03/01/25 07:22 Pulse Ox 94 03/01/25 07:22 O2 Del Method Nasal Cannula 03/01/25 07:22 O2 Flow Rate 3 03/01/25 07:22 BMI result Body Mass Index 20.1 Const: Other: Constitutional : interactive, not in distress Cardiovascular : no JVP, no lower extremity edema Respiratory : bilateral chest movement, crackles , On O2 supplement Gastrointestinal: soft, lax, Non tender, mild distention Skin : Warm, Dry Neurological : Alert & oriented to self and place , No focal deficit Objective Data Active Medications Acetaminophen (Acetaminophen 325 Mg Tablet) 650 mg PO Q6H PRN PRN Reason: Pain, Mild 1-3,fever,headache Last Admin: 03/01/25 07:18 Dose: 650 mg Documented By: YOBANI Calcium Carbonate (Calcium Carbonate 750 Mg Tab.Chew) 750 mg PO Q4H PRN PRN Reason: Heartburn Furosemide (Furosemide 40 Mg/4 Ml Vial) 40 mg IVPUSH DAILY [facility]; Protocol Last Admin: 03/01/25 07:18 Dose: 40 mg Documented By: YOBANI Hydroxyzine HCl (Hydroxyzine Hcl 25 Mg Tablet) 25 mg PO Q6H PRN PRN Reason: anxiety/restlessness Last Admin: 02/28/25 21:00 Dose: 25 mg Documented By: CORBIN Magnesium Hydroxide (Milk Of Magnesia 30 Ml Oral.Susp) 30 ml PO DAILY PRN PRN Reason: Constipation Melatonin (Melatonin 3 Mg Tablet) 6 mg PO BEDTIME PRN PRN Reason: Insomnia Last Admin: 02/28/25 21:00 Dose: 6 mg Documented By: CORBIN Ondansetron HCl (Ondansetron Hcl 4 Mg/2 Ml Vial) 4 mg IVPUSH Q8H PRN PRN Reason: Nausea and Vomiting Pharmacy Consult (Consult Rx Etoh Phenob Im/Po) 1 each MISCELLANE ONCE PRN; Protocol PRN Reason: Consult order Sodium Chloride (0.9 % Sodium Chloride Flush 3 Ml Syringe) 3 ml IVFLUSH QSHIFT [facility] Last Admin: 03/01/25 07:18 Dose: 3 ml Documented By: YOBANI Thiamine HCl (Thiamine Hcl 100 Mg Tablet) 100 mg PO DAILY [facility] Last Admin: 03/01/25 07:18 Dose: 100 mg Documented By: YOBANI Labs 03/01/25 05:23 03/01/25 05:23 Labs: Laboratory Results - last 24 hr 03/01/25 05:23 MCV 92.0 MCH 28.8 MCHC 31.3 RDW 14.8 Plt Count 55 L MPV 10.7 Immature Gran % (Auto) 0.7 H Neut % (Auto) 56.5 Lymph % (Auto) 27.5 [place] % (Auto) 8.5 Eos % (Auto) 5.8 H Baso % (Auto) 1.0 Lymph # (Auto) 0.8 L [place] # (Auto) 0.3 Eos # (Auto) 0.2 Baso # (Auto) 0.0 Abs Immat Gran (auto) 0.02 Absolute Neuts (auto) 1.7 L Absolute Nucleated RBC 0.000 Nucleated RBC % (auto) 0.0 Anion Gap 12 Estim Creat Clear Calc 88.9 Estimated GFR > 60 Random Glucose 82 Calcium 8.5 Assessment and Plan (1) Alcohol use disorder: Status: Acute (2) Hypoxic: Status: Acute (3) CHF (congestive heart failure): Status: Acute Plan This is a 55-year-old male with pertinent history of alcohol use disorder with alcoholic cirrhosis, gastroesophageal reflux disease, congestive heart failure with preserved ejection fraction who presents to the emergency department for evaluation after alcohol intoxication. # Acute hypoxemic respiratory failure due to acute on chronic congestive heart failure with preserved ejection fraction wean down supplemental oxygen IV diuresis Strict I's and O's. Low-salt diet. # Alcohol use disorder refusing phenobarb protocol Keep on CIWA thiamine and folic acid Addiction Team, patient refuses resources # Alcoholic cirrhosis with chronic thrombocytopenia On lactulose and spironolactone. Defer prophylactic Lovenox on section 35 will need to contact PD if discharged during the week to pick him up. he can be discharged # Gastroesophageal reflux disease PPI and sucralfate DVT prophylaxis: Mechanical Full code will require overnight hospital stay for supplemental oxygen, IV diuresis (as above), which is not possible in a lesser acute setting. Quality Stroke Does the patient have a stroke diagnosis?: No VTE Prior VTE?: No VTE Risk Level:: Medical - moderate - high VTE Device Contraindication: N/A - Device Ordered VTE Drug Contraindication: Treatment Not Indicated
[2025-03-01 15:04] VITALS: BP 104/53; PULSE 79; RESP 15; TEMP 37; O2SAT 92
[2025-03-01 19:37] VITALS: BP 119/58; PULSE 86; RESP 18; TEMP 36.5; O2SAT 92
[2025-03-02 02:44] VITALS: BP 102/51; PULSE 76; RESP 18; TEMP 36.8; O2SAT 93
[2025-03-02 06:58] VITALS: BP 114/75; PULSE 78; RESP 18; TEMP 37; O2SAT 92
[2025-03-02] MEDS: Furosemide 40 MG/4 ML VIAL IVPUSH (07:23)
[2025-03-02] MEDS: Thiamine HCL 100 MG TABLET PO (07:23)
[2025-03-02] MEDS: Acetaminophen 325 MG TABLET 650 MG PO (07:25)
[2025-03-02] MEDS: 0.9 % Sodium Chloride Flush 3 ML SYRINGE IVFLUSH (07:38)
--- NOTE | 2025-03-02 10:19 | PM.DS ---
DS: Providers Provider Date of Service: 03/02/25 Date of admission: 02/28/25 05:14 Date of discharge: 03/02/25 Primary care physician: [facility] Rosy Morrow Consults: 02/28/25 05:15 Addiction Medicine Provider Routine Consulting Provider: Arpit Sharp Reason for consultation: alcohol use disorder 02/28/25 08:44 Inpt - Recovery Team Routine Comment: Reason for consultation: LUCAS eval DS: Diagnosis Discharge Diagnosis (1) Alcohol use disorder: Status: Acute (2) Hypoxic: Status: Acute (3) CHF (congestive heart failure): Status: Acute DS: Summary Hospital Course Hospital Course: Admission note HPI This is a 55-year-old male with pertinent history of alcohol use disorder with alcoholic cirrhosis, gastroesophageal reflux disease, congestive heart failure with preserved ejection fraction who presents to the emergency department for evaluation after alcohol intoxication. Patient presents to the ER as he states he needs a place to sleep. Admits to drinking alcohol on the day of presentation. Does endorse bilateral lower extremity leg swelling and dyspnea which is worse when lying flat. Unclear if he is compliant with home medications. Patient is a poor historian. In the emergency department, patient was satting 81% on room air. Imaging with pulmonary edema and BNP found to be elevated. Patient was given IV Lasix. Denies abdominal pain, hematemesis, nausea, vomiting, fever, chills, chest pain, palpitations, changes in urinary or bowel habits. Hospital course # Acute hypoxemic respiratory failure due to acute on chronic congestive heart failure with preserved ejection fraction treated with IV lasix with good response as he was weaned off O2 and saturation stable at 92% on RA with ambulation with no reported dyspnea. Advised to adhere to his Spironolactone as prescribed and low sodium diet. # Alcohol use disorder refused phenobarb protocol. Kept on CIWA with no signs of withdrawal. Continue thiamine and folic acid on discharge. Advised to quit drinking alcohol. Addiction Team saw him and the patient refused resources. # Alcoholic cirrhosis with chronic thrombocytopenia On lactulose and spironolactone. He has nonadherence history. Discharge plan Avoid Alcohol Take your medications as prescribed Time Attestation Discharge Coordination Time (in mins): 41 Quality: Safe Use of Opioids Does Pt have an Active Cancer Diagnosis on the Problem List?: No Quality: Stroke Does the patient have a stroke diagnosis?: No Physical Exam Vital Signs: Vital Signs: Last Vital Signs Temp 98.6 F 03/02/25 06:58 Pulse 78 03/02/25 06:58 Resp 18 03/02/25 06:58 BP 114/75 03/02/25 06:58 Pulse Ox 92 03/02/25 06:58 O2 Del Method Nasal Cannula 03/02/25 06:58 O2 Flow Rate 1 03/02/25 06:58 BMI result Body Mass Index 20.1 Const: Other: Constitutional : Awake, interactive, not in distress Neck : Normal inspection, Supple Cardiovascular : RRR, no JVP, no lower extremity edema Respiratory : good bilateral air entry, no crackles, wheezes or rhonchi Gastrointestinal: soft, lax, Normal bowel sounds, Non tender Skin : Warm, Dry Neurological : Alert & oriented to self and place, No focal deficit DS: Data Data Completed and Pending Completed studies during hospitalization [Text1]: Procedures Control Bleeding in Gastrointestinal Tract, Via Natural or Artificial Opening Endoscopic (08/29/23) Control Bleeding in Nasal Mucosa and Soft Tissue, Via Natural or Artificial Opening (11/29/24) Detoxification Services for Substance Abuse Treatment (02/11/25) Drainage of Peritoneal Cavity, Percutaneous Approach (10/21/24) Excision of Ascending Colon, Via Natural or Artificial Opening Endoscopic, Diagnostic (08/03/23) Excision of Descending Colon, Via Natural or Artificial Opening Endoscopic, Diagnostic (08/03/23) Insertion of Infusion Device into Upper Vein, Percutaneous Approach (08/29/23) Introduction of Mineral-based Topical Hemostatic Agent into Lower GI, Via Natural or Artificial Opening Endoscopic, [employer] (08/03/23) Introduction of Mineral-based Topical Hemostatic Agent into Upper GI, Via Natural or Artificial Opening Endoscopic, [employer] (08/29/23) Occlusion of Esophageal Vein with Extraluminal Device, Via Natural or Artificial Opening Endoscopic (11/29/24) Occlusion of Esophageal Vein, Via Natural or Artificial Opening Endoscopic (01/22/24) Transfusion of Nonautologous Plasma Cryoprecipitate into Peripheral Vein, Percutaneous Approach (08/03/23) Transfusion of Nonautologous Platelets into Peripheral Vein, Percutaneous Approach (11/29/24) Transfusion of Nonautologous Red Blood Cells into Peripheral Vein, Percutaneous Approach (11/29/24) Imaging Chest x-ray: Radiologist's impression: IMPRESSION: Enlarged cardiac silhouette with mild pulmonary edema. Discharge Plan Discharge Anticipated Discharge Date/Time: 03/02/25 10:16 Patient Disposition: [facility] Discharge Diagnosis: Alcohol abuse Heart failure w Hypoxia Referrals: [facility] [Primary Care Provider] - 1 Week Discharge Medications: Continued sucralfate [Carafate] 1 gram tablet 1 g PO BID Qty: 60 0RF acetaminophen 325 mg Tablet 975 mg PO Q6H PRN (Reason: Pain, Mild 1-3,Fever,Headache) Qty: 30 0RF magnesium oxide 400 mg (241.3 mg magnesium) Tablet 400 mg PO DAILY Qty: 30 0RF [place] Nasal 0.65 % Aerosol,[place] 1 spray intranasal Q1H PRN (Reason: Dryness) Qty: 44 0RF spironolactone 25 mg tablet 25 mg PO DAILY Qty: 90 0RF lactulose 10 gram/15 mL solution 30 ml PO TID omeprazole 40 mg capsule,delayed release(DR/EC) 40 mg PO DAILY@0630 folic acid 1 mg Tablet 1 mg PO DAILY Qty: 90 0RF thiamine mononitrate (vit B1) 100 mg Tablet 100 mg PO DAILY Qty: 90 0RF Discontinued levofloxacin 750 mg Tablet 750 mg PO Q24H Qty: 7 0RF Discharge Orders: Discharge Order (Routine); Ordered 03/02/25 Ordered By: Emily Lawrence Diet: Low salt diet Activity on Discharge: As tolerated Stand Alone Forms: Patient Portal Discharge page Print Language: Liberian Care Plan Goals: Avoid Alcohol Take Spironolactone daily to avoid fluid overload and difficulties breathing Take your medications as prescribed Health Concerns: heart failure Plan of Treatment: Spironolactone Assessment: as above
--- NOTE | 2025-03-02 10:35 | MHC.CM.PN ---
Per MD medically cleared for dc self care. Patient wishes to return to [facility] where he eats lunch daily. He accepted a alf list, but declines assistance w/ additional alf placement. Also accepted backpack w/ supplies. Will transport via lyft.
== END 2025-03-02 11:06 | disposition home or self-care (01) | DRG 194 ==
LOC: HO.ED 04:54 → HO.EDOVER 05:19 → HO.S3 07:16
PROVIDERS: Admitting Provider Student in an Organized Health Care Education/Training Program; Emergency Provider Emergency Medicine; Visit Provider Student in an Organized Health Care Education/Training Program
DX: I50.33 Acute on chronic diastolic (congestive) heart failure (principal); J96.01 Acute respiratory failure with hypoxia; F10.229 Alcohol dependence with intoxication, unspecified; D69.6 Thrombocytopenia, unspecified; K21.9 Gastro-esophageal reflux disease without esophagitis; K70.30 Alcoholic cirrhosis of liver without ascites; Y90.8 Blood alcohol level of 240 mg/100 ml or more; Z87.891 Personal history of nicotine dependence; Z79.899 Other long term (current) drug therapy
CPT/HCPCS: 36415; 71045; 80048; 80076; 80307; 83735; 83880; 84484; 85025; 99285; J1938; J2560; S9485

== ENCOUNTER → 2025-02-28 01:08 | Outpatient (BNV) | payer MEDICAID, SELFPAY | PROVIDERS: Emergency Provider Emergency Medicine; Visit Provider General Practice | DX: R06.02 Shortness of breath (principal); R09.02 Hypoxemia; J81.0 Acute pulmonary edema | CPT/HCPCS: 71045 ==

== ENCOUNTER → 2025-02-28 05:14 | Outpatient (BNV) | payer OTHER, SELFPAY | PROVIDERS: Admitting Provider Student in an Organized Health Care Education/Training Program; Emergency Provider Emergency Medicine; Visit Provider Nurse Practitioner Psychiatric/Mental Health | DX: F10.90 Alcohol use, unspecified, uncomplicated (principal) | CPT/HCPCS: 99232 ==

== ENCOUNTER → 2025-02-28 05:14 | Outpatient (BNV) | payer MEDICAID, SELFPAY | PROVIDERS: Admitting Provider Student in an Organized Health Care Education/Training Program; Emergency Provider Emergency Medicine; Visit Provider Student in an Organized Health Care Education/Training Program | DX: J96.01 Acute respiratory failure with hypoxia (principal); I50.9 Heart failure, unspecified; F10.90 Alcohol use, unspecified, uncomplicated | CPT/HCPCS: 99223; 99232; 99239; 99499 ==

== ENCOUNTER 2025-03-03 02:14 | Emergency (ER) | payer MEDICAID, SELFPAY ==
[2025-03-03] VITALS (9 sets, daily range): BP systolic 94–116; BP diastolic 46–57; PULSE 73–82; RESP 12–18; TEMP 36.5–36.7; O2SAT 86–97; BMI 18.9
--- NOTE | ~2025-03-03 | XR_ITS ---
CLINICAL HISTORY: sob 1 view chest x-ray Comparison: CR - XR CHEST 1V - 02/28/25 01:18 EDT Findings: Lungs are well inflated. Cardiac silhouette is at the upper limits of normal for size. Central interstitial markings are prominent. No dense area of consolidation. No pleural effusion or pneumothorax. IMPRESSION: Perihilar edema versus bronchitis/bronchiolitis. This document has been electronically signed by: Deepak Omalley MD on 03/03/2025 08:10:41
--- OUTSIDE RECORDS SUMMARY | 2025-03-03 02:28 | XMS_ITS | Clinical Summary ---
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 Name Role Phone Unavailable Primary Care Provider [...] Patient presented with altered mental status from [facility] where he appeared more lethargic than [...] Provider, Generic External Data 02/21/2025 Patient Outreach [address] [address] Santosh Daley MD Care Coordination (C3/CM Outreach) 02/19/2025 Patient Outreach [facility] [address] [place] [address] Missy Milner RN 02/13/2025 Patient Outreach [address] [address] Misti Murry MD Care Coordination (Outreach) 02/11/2025 Orders Only [facility] External Provider, [facility] 02/10/2025 Orders Only GENERIC EXTERNAL DATA DEPARTMENT Provider, Generic External Data 02/08/2025 Orders Only GENERIC EXTERNAL DATA DEPARTMENT Provider, Generic External Data 02/07/2025 Orders Only GENERIC EXTERNAL DATA DEPARTMENT Provider, Generic External Data 02/07/2025 Patient Outreach [address] [address] Misti Murry MD Care Coordination (C3/CM Outreach) 02/06/2025 Orders Only GENERIC EXTERNAL DATA DEPARTMENT Provider, Generic External Data 02/05/2025 Patient Outreach [address] [address] Santosh Daley MD Care Coordination (C3/CM Chart Review) 02/05/2025 Patient Outreach [facility] [address] [place] [address] Missy Milner RN Care Coordination (C3CM chart review) 02/05/2025 Patient Outreach [address] [place] [address] Santosh Daley MD 01/31/2025 Orders Only GENERIC EXTERNAL DATA DEPARTMENT Provider, Generic External Data 01/30/2025 Orders Only GENERIC CTC DEPARTMENT [facility] 01/24/2025 Patient Outreach [facility] [address] [place] [address] Santosh Daley MD Care Coordination (Outreach) 01/24/2025 Population Health Risk Score [facility] Department [address] [place] [phone] Provider, Population Health Generic 01/14/2025 Patient Outreach [facility] [address] [place] [address] Santosh Daley MD Care Coordination (Outreach) 01/06/2025 Patient Outreach [facility] [address] [place] [address] Santosh Daley MD Care Coordination (Outreach) 12/26/2024 Patient Outreach [facility] [address] [place] [address] Santosh Daley MD Care Coordination (Outreach) from [...] Upcoming Encounters Date Type Department Care Team ([facility] st Contact Info) Description 05/02/2025 10:00 AM EDT Office Visit [facility] [address] [place] [address] Misti Murry MD [address] [place] [address] Health Maintenance Due Date Last Done Comments [...] AUTO DIFFERENTIAL Routine 01/30/2025 12:45 AM EDT from Last 3 Months Results * (ABNORMAL) Ethanol (02/26/2025 10:26 PM EDT) Only the most recent of7 resultswithin the time period is included. ETHANOL (MG/DL) IN SER/PLAS 403(HH) mg/dL [facility] Comment:Serum/plasma ethanol results are to be used formedical/treatment purposes only. 02/26/2025 10:2 6 PM EDT 02/26/2025 10:28 PM EDT us Generic External Data Provider LAB BLOOD ORDERAB LES Final Result [facility] [address] [place] [address] [phone] * (ABNORMAL) CBC auto differential (02/26/2025 10:26 PM EDT) Only the most recent of9 resultswithin the time period is included. White Blood Count 3.1(L) 4.8 - 10.8 X10*3/uL [facility] Red Blood Count 2.85(L) 4.60 - 5.80 X10*6/uL [facility] Hemoglobin 8.3(L) 14.0 - 18.0 g/dl [facility] Hematocrit 26.6(L) 42.0 - 52.0 % [facility] Mean Corpuscular Volume 93.3 80.0 - 98.0 fL [facility] Mean Corpuscular Hemoglobin 29.1 27.0 - 33.0 pg [facility] Mean Corpuscular HGB Conc 31.2 31.0 - 36.0 g/dl [facility] Red Cell Distribution Width 14.6 11.0 - 16.0 % [facility] Platelet Count 63(L) 160 - 400 X10*3/uL [facility] Mean Platelet Volume 9.8 9.4 - 12.4 fL [facility] Neutrophils Percent Auto 56.6 45 - 73 % [facility] Imm Gran Pct Auto 0.3 0.0 - 0.4 % [facility] Lymphocytes Percent Auto 28.1 20 - 40 % [facility] Monocytes Percent Auto 8.5 2 - 11 % [facility] Eosinophils Percent Auto 5.2(H) 0 - 4 % [facility] Basophils Percent Auto 1.3 0 - 2 % [facility] NRBC Pct Auto 0.0 0.0 - 0.2 /100WBC [facility] Neutrophils Absolute Auto 1.7(L) 2.0 - 8.3 x10*3/uL [facility] Imm Gran Abs Auto 0.01 0.00 - 0.03 X10*3/uL [facility] Lymphocytes Absolute Auto 0.9(L) 1.2 - 4.9 X10*3/uL [facility] Monocytes Absolute Auto 0.3 0.1 - 1.2 X10*3/uL [facility] Eosinophils Absolute Auto 0.2 0.0 - 0.4 X10*3/uL [facility] Basophils Absolute Auto 0.0 0.0 - 0.2 X10*3/uL [facility] NRBC Abs Auto 0.000 0.0 - 0.012 X10*3/uL [facility] 02/26/2025 10:2 6 PM EDT 02/26/2025 10:28 PM EDT us Generic External Data Provider LAB BLOOD ORDERAB LES Final Result [facility] [address] [place], [place] [phone] * (ABNORMAL) Comprehensive Metabolic Panel (02/26/2025 10:26 PM EDT) Only the most recent of6 resultswithin the time period is included. Sodium 142 135 - 145 mmol/L [facility] Potassium 3.7 3.3 - 5.1 mmol/L [facility] Chloride 115(H) 96 - 108 mmol/L [facility] Carbon Dioxide 17(L) 22 - 29 mmol/L [facility] Anion Gap 14 12 - 20 [facility] Urea Nitrogen (BUN) 10 9 - 16 mg/dL [facility] Creatinine, Serum 0.77 0.5 - 1.4 mg/dL [facility] Creatinine Clr Calc Pharmacy 130.7 [facility] Comment:eGFR (calculated fro m the MDRD study equation) and eCrCl(calculated from the Cockcroft-Gault equation) are based ondifferent parameters and may not yield comparable results.If eCrCl result is absurd, please check patient'sheight/weight. Estimated Glomerular Filt Rate >60 [facility] Comment:Chronic Kidney Disea se: Estimated GFR < 60 mL/min/1.96e9Roaody Kidney Disease: Estimated GFR < 15 mL/min/1.73m2 Glucose 108 60 - 115 mg/dL [facility] Calcium 8.6 8.4 - 10.2 mg/dL [facility] Bilirubin, Total 0.4 0.0 - 1.0 mg/dL [facility] Aspartate Amino Transferase 36 5 - 37 U/L [facility] Alanine Aminotransferase 9 0 - 40 U/L [facility] Total Protein 8.0 6.5 - 8.0 g/dL [facility] Albumin Level 3.8 3.5 - 5.0 g/dL [facility] Alkaline Phosphatase 135(H) 39 - 117 U/L [facility] 02/26/2025 10:2 6 PM EDT 02/26/2025 10:28 PM EDT Generic External Data Provider LAB BLOOD ORDERAB LES Final Result Performing Organization Address [facility] Co de Phone Number [facility] [address] [place] [phone] * Acetaminophen level (02/26/2025 8:24 AM EDT) Acetaminophen LAB <3 <30 mcg/mL [facility] 02/26/2025 8:24 AM EDT 02/26/2025 10:28 PM EDT Generic External Data Provider LAB BLOOD ORDERAB LES Final Result Performing Organization Address [facility] Co de Phone Number [facility] [address] [place] [phone] [phone] * (ABNORMAL) Salicylate (02/26/2025 8:24 AM EDT) Salicylate <5.0(L) 15 - 30 mg/dL [facility] 02/26/2025 8:24 AM EDT 02/26/2025 10:28 PM EDT us Generic External Data Provider LAB BLOOD ORDERAB LES Final Result [facility] [address] [place] [phone] [phone] * (ABNORMAL) Drug Monitoring, Panel 1, Screen, Urine (02/21/2025 8:07 PM EDT) Only the most recent of2 resultswithin the time period is included. Pathologist [facility] Opiate Screen Urine Not Detected Not Detect [facility] Comment:Opiate cut-off is 30 0 ng/mL.Positive results are unconfirmed and should not be used fornon-medical purposes. Barbiturates, Urine POSITIVE(A) Not Detect [facility] Comment:Barbiturate cut-off is 200 ng/mL.Positive results are unconfirmed and should not be used fornon-medical purposes. Phencyclidine Screen Urine Not Detected Not Detect [facility] Comment:Phencyclidine cut-of f is 25 ng/mL.Positive results are unconfirmed and should not be used fornon-medical purposes. Amphetamine Screen Urine Not Detected Not Detect [facility] Comment:Amphetamine cut-off is 1000 ng/mL.Positive results are unconfirmed and should not be used fornon-medical purposes. Benzodiazepines Screen Urine Not Detected Not Detect [facility] Comment:Benzodiazepine cut-o ff is 200 ng/mL.Positive results are unconfirmed and should not be used fornon-medical purposes. Cocaine Screen Urine Not Detected Not Detect [facility] Comment:Cocaine cut-off is 3 00 ng/mL.Positive results are unconfirmed and should not be used fornon-medical purposes. Cannabinoid Screen Urine Not Detected Not Detect [facility] Comment:Cannabinoid cut-off is 50 ng/mL.Positive results are unconfirmed and should not be used fornon-medical purposes. Methadone Screen, Urine Not Detected Not Detect ng/mL [facility] Comment:Methadone cut-off is 300 ng/mL.Positive results are unconfirmed and should not be used fornon-medical purposes. FENTANYL URINE Not Detected Not Detect [facility] Comment:Fentanyl cut-off is 1 ng/mL.Positive results are unconfirmed and should not be used fornon-medical purposes. Oxycodone Urine Screen Not Detected Not Detect ng/mL [facility] Comment:Oxycodone cut-off is 100 ng/mL.Positive results are unconfirmed and should not be used fornon-medical purposes. Buprenorphine Screen Not Detected Not Detect ng/mL [facility] Comment:Buprenorphine cut-of f is 5 ng/mL.Positive results are unconfirmed and should not be used fornon-medical purposes. 02/21/2025 8:07 PM EDT 02/21/2025 8:10 PM EDT us Generic External Data Provider LAB URINE ORDERAB LES Final Result [facility] [address] [place] [phone] * Hepatic Function Panel (02/21/2025 8:07 PM EDT) Only the most recent of3 resultswithin the time period is included. Bilirubin, Total 0.3 0.0 - 1.0 mg/dL [facility] Bilirubin, Direct 0.2 0.0 - 0.5 mg/dL [facility] Aspartate Amino Transferase 33 5 - 37 U/L [facility] Alanine Aminotransferase 10 0 - 40 U/L [facility] Total Protein 7.4 6.5 - 8.0 g/dL [facility] Albumin Level 3.5 3.5 - 5.0 g/dL [facility] Alkaline Phosphatase 104 39 - 117 U/L [facility] 02/21/2025 8:07 PM EDT 02/21/2025 8:10 PM EDT us Generic External Data Provider LAB BLOOD ORDERAB LES Final Result Performing Organization Address [facility]/ZIP Co de Phone Number [facility] [address] [place] [phone] [phone] * (ABNORMAL) Basic Metabolic Panel (02/21/2025 8:07 PM EDT) Only the most recent of3 resultswithin the time period is included. Sodium 142 135 - 145 mmol/L [facility] Potassium 4.3 3.3 - 5.1 mmol/L [facility] Chloride 118(H) 96 - 108 mmol/L [facility] Carbon Dioxide 17(L) 22 - 29 mmol/L [facility] Anion Gap 11(L) 12 - 20 [facility] Urea Nitrogen (BUN) 17(H) 9 - 16 mg/dL [facility] Creatinine, Serum 0.75 0.5 - 1.4 mg/dL [facility] Creatinine Clr Calc Pharmacy 84.6 [facility] Comment:eGFR (calculated fro m the MDRD study equation) and eCrCl(calculated from the Cockcroft-Gault equation) are based ondifferent parameters and may not yield comparable results.If eCrCl result is absurd, please check patient'sheight/weight. Estimated Glomerular Filt Rate >60 [facility] Comment:Chronic Kidney Disea se: Estimated GFR < 60 mL/min/1.96n5Adcxcw Kidney Disease: Estimated GFR < 15 mL/min/1.73m2 Glucose 88 60 - 115 mg/dL [facility] Calcium 8.5 8.4 - 10.2 mg/dL [facility] 02/21/2025 8:07 PM EDT 02/21/2025 8:10 PM EDT Generic External Data Provider LAB BLOOD ORDERAB LES Final Result Performing Organization Address [facility]/ZIP Co de Phone Number [facility] [address] [place] [phone] * XR Chest 1 View (02/11/2025 11:05 AM EDT) Anatomical Region Laterality Modality Chest Radiographic Lamar ging 02/11/2025 11:0 5 AM EDT Narrative 02/11/2025 11:19 AM EDT ? [facility] ?[address] ?[place] [address] ?XRay Report ? Signed ? Patient: Delgado,Charbel ?MR#: [id number] ? : 1970 ?Acct:[id number] ? Age/Sex: 55 / M ?ADM Date: 02/11/25 ? Loc: HO.S3 ?370-1 ? Attending Dr: Rolan Baker MD ? Ordering Physician: Rolan Baker MD ?? Date of Service: 02/11/25 ?? Procedure(s): XR chest 1V ?? Accession Number(s): [id number] ? cc: [facility]; Rolan Baker MD ? EXAMINATION: ??XR CHEST [...] DD/ 1105 ? TD/TT: 02/11/25 1111 ? Web Portal Developer: ? Procedure Note Renato Winter - 02/11/[address] [address] XRay Report Signed Patient: Isaias Delgado#: [id number] : 1970Acct:[id number] Age/Sex: 55 / MADM Date: 02/11/25 Loc: HO.S3 370-[address]: Rolan Baker MD Ordering Physician: Rolan Baker MD Date of Service: 02/11/25 Procedure(s): XR chest 1V Accession Number(s): [id number] cc: [facility]; Rolan Baker MD EXAMINATION: XR CHEST 1 [...] 02/11/25 1116 DD/ 1105 TD/TT: 02/11/25 1111 Web Portal Developer: [facility] External Provider IMG XR PROCEDURES Final Result * Magnesium (02/10/2025 11:37 PM EDT) Only the most recent of2 resultswithin the time period is included. Magnesium 1.7 1.6 - 2.6 mg/dL [facility] 02/10/2025 11:3 7 PM EDT 02/10/2025 11:43 PM EDT Generic External Data Provider LAB BLOOD ORDERAB LES Final Result Performing Organization Address [facility] de Phone Number [facility] [address] [place] [phone] * (ABNORMAL) VENOUS BLOOD GAS (02/08/2025 6:41 PM EDT) Only the most recent of2 resultswithin the time period is included. VBG pH 7.45(H) 7.32 - 7.43 [facility] Comment:METER #: [id number] additional_comment: Cb nsl VBG PCO2 31 mmHg [facility] Comment:METER #: [id number] additional_comment: Cb nsl VBG PO2 43 mmHg [facility] Comment:METER #: [id number] additional_comment: Cb nsl VBG Base Excess -1.0 mmol/L [facility] Comment:METER #: [id number] additional_comment: Cb nsl VBG HCO3 22 22 - 26 mmol/L [facility] Comment:METER #: [id number] additional_comment: Cb nsl O2 Sat, Demetrio 66.0 % [facility] Comment:METER #: [id number] additional_comment: Cb nsl 02/08/2025 6:41 PM EDT 02/08/2025 6:44 PM EDT Generic External Data Provider LAB BLOOD ORDERAB LES Final Result Performing Organization Address [facility] Co de Phone Number [facility] [address] [place] [phone] * (ABNORMAL) Lactic Acid (02/08/2025 6:30 PM EDT) Lactic Acid 2.9(HH) 0.5 - 2.0 mmol/L [facility] Comment:Critical value for t est(s): LACTIC Results called to gildardo back by: PRACHI Person calling: JENNIE Date: 02/08/25Time: 1857 02/08/2025 6:30 PM EDT 02/08/2025 6:37 PM EDT us Generic External Data Provider LAB BLOOD ORDERAB LES Final Result [facility] [address] [facility] [place] [phone] * CTA Chest PE Protocal (02/08/2025 4:12 AM EDT) Anatomical Region Laterality Modality Body, Chest Computed Tomogra phy 02/08/2025 4:12 AM EDT Narrative 02/08/2025 4:15 AM EDT ? [facility] ?[address] ?[place] [address] ? CT Scan Report ? Signed ? Patient: Delgado,Charbel ?MR#: [id number] ? : 1970 ?Acct:[id number] ? Age/Sex: 55 / M ?ADM Date: 02/07/25 ? Loc: HO.ED ? Attending Dr: ? Ordering Physician: Alexandria Sweeney MD ?? Date of Service: 02/08/25 ?? Procedure(s): CT angio chest PE protocol ?? Accession Number(s): [id number] ? cc: [facility]; Alexandria Sweeney MD ? Report Number: ?? [id number]: Total DLP = ??260.00 mGy-cm ? CLINICAL [...] MD in OV> ?02/08/25 0413 ? DD/ 1 ? TD/TT: 02/08/252 ? Web Portal Developer: ? Procedure Note Donkrunalinterpreter, Image - 02/08/[address] [place] [address] [address] Scan Report Signed Patient: Isaias Delgado#: [id number] : 1970Acct:[id number] Age/Sex: 55 / MADM Date: 02/07/25 Loc: HO.ED Attending Dr: Ordering Physician: Alexandria Sweeney MD Date of Service: 02/08/25 Procedure(s): CT angio chest PE protocol Accession Number(s): [id number] cc: [facility]; Alexandria Sweeney MD Report Number: [id number]: Total DLP = 260.00 mGy-cm CLINICAL HISTORY: [...] Mendoza MD in OV> 02/08/25 0413 DD/ 1 TD/TT: 02/08/25411 Web Portal Developer: us [facility] External Provider IMG CT PROCEDURES Edited Result - Final * CT Head w/o Contrast (02/08/2025 4:05 AM EDT) Anatomical Region Laterality Modality Head, Neck Computed Tomogra phy 02/08/2025 4:05 AM EDT Narrative 02/08/2025 4:07 AM EDT ? [facility] ?[address] ?[place] [address] ? CT Scan Report ? Signed ? Patient: Charbel Delgado ?MR#: [id number] ? : 1970 ?Acct:[id number] ? Age/Sex: 55 / M ?ADM Date: 02/07/25 ? Loc: HO.ED ? Attending Dr: ? Ordering Physician: Alexandria Sweeney MD ?? Date of Service: 02/08/25 ?? Procedure(s): CT head/brain wo IV con ?? Accession Number(s): [id number] ? cc: [facility]; Alexandria Sweeney MD ? Report Number: ?? [id number]: Total DLP = ??618.00 mGy-cm ? CLINICAL [...] 0406 ? DD/ ? TD/TT: 02/08/255 ? Web Portal Developer: ? Procedure Note Donotfernandointerpreter, Image - 02/08/[address] [place] [address] [address] Scan Report Signed Patient: Isaias Delgado#: [id number] : 1970Acct:[id number] Age/Sex: 55 / MADM Date: 02/07/25 Loc: HO.ED Attending Dr: Ordering Physician: Alexandria Sweeney MD Date of Service: 02/08/25 Procedure(s): CT head/brain wo IV con Accession Number(s): [id number] cc: [facility]; Alexandria Sweeney MD Report Number: [id number]: Total DLP = 618.00 mGy-cm CLINICAL HISTORY: [...] in OV> 02/08/25405 DD/ 4 TD/TT: 02/08/25404 Web Portal Developer: [facility] External Provider IMG CT PROCEDURES Edited Result - Final * High Sensitivity Troponin I (02/08/2025 1:52 AM EDT) Pathologist [facility] TROPONIN I HIGH SENSITIVITY <2.7 <3.5 - 35.0 ng/L [facility] Comment:The Connolly high sens itivity Troponin-I results should beused in conjunction with other diagnostic information suchas ECG, clinical observations and information, and patientsymptoms to aid in the diagnosis of SD. 02/08/2025 1:52 AM EDT 02/08/2025 1:55 AM EDT Generic External Data Provider LAB BLOOD ORDERAB LES Final Result [facility] [address] [place] [phone] * SARS-CoV-2 RNA, Influenza A/B, and RSV RNA, Ql NAAT (02/08/2025 1:52 AM EDT) [facility] Influenza A PCR NEGATIVE Negative [facility] Influenza B PCR NEGATIVE Negative [facility] Resp Syncy Virus RNA Qual PCR NEGATIVE Negative [facility] SARS COV2 PCR NEGATIVE Negative [facility] Comment:All test results mus [...] use by authorized laboratories.Testing performed on the [employer] GeneXpert utilizingreal-time RT-PCR.All SARS CoV2 and positive influenza A/B results arereported to [facility]. 02/08/2025 1:52 AM EDT 02/08/2025 1:55 AM EDT Generic External Data Provider LAB MICROBIOLOGY - GENERAL ORDERABLES Final Result Performing Organization Address [facility] Co de Phone Number [facility] [address] [place] [phone] * (ABNORMAL) Prothrombin Time-INR (02/08/2025 1:52 AM EDT) Only the most recent of2 resultswithin the time period is included. Prothrombin Time 15.3(H) 10.9 - 12.4 SEC [facility] INTERNATIONAL NORM RATIO 1.3(H) 0.9 - 1.1 [facility] Comment:INTERNATIONAL NORMAL IZED RATIO (INR) REFERENCE [...] ORDERAB LES Final Result Performing Organization Address [facility] Co de Phone Number [facility] [address] [place] [phone] * (ABNORMAL) B Type Natriuretic Peptide (BNP) (02/08/2025 1:52 AM EDT) B Type Natriuretic Peptide 147(H) <100 pg/mL [facility] 02/08/2025 1:52 AM EDT 02/08/2025 1:55 AM EDT Generic External Data Provider LAB BLOOD ORDERAB LES Final Result Performing Organization Address [facility]/State/ZIP Co de Phone Number [facility] [address] [place] [phone] * (ABNORMAL) Ammonia, Plasma (02/08/2025 1:52 AM EDT) Only the most recent of2 resultswithin the time period is included. Ammonia (P) 65(H) 13 - 55 umol/L [facility] 02/08/2025 1:52 AM EDT 02/08/2025 2:03 AM EDT Generic External Data Provider LAB BLOOD ORDERAB LES Final Result Performing Organization Address [facility] Co de Phone Number [facility] [address] [place] [phone] * Lipase (02/06/2025 12:39 AM EDT) Only the most recent of3 resultswithin the time period is included. Lipase 24 8 - 78 U/L [facility] 02/06/2025 12:3 9 AM EDT 02/06/2025 12:45 AM EDT Generic External Data Provider LAB BLOOD ORDERAB LES Final Result Performing Organization Address [facility] de Phone Number [facility] [address] [place] [phone] from Last 3 Months Insurance [facility] STANDARD N PARTIAL
--- OUTSIDE RECORDS SUMMARY | 2025-03-03 02:28 | XMS_ITS ---
Author Organization [employer] [facility] Address [address] [facility] 7 [place] [address] Care Team Providers Care Organic Preparation Analyst Name Role Phone Unavailable Primary Care Provider Unavailabl e CHW Complex Status:Outreach In Progress (Enrolling) Start date:02/05/2025 Enrollment reason:ADT Feed Overview ED- Pt went to [facility] [place] ED on 02/04/25. Case Team Name Relationship Phone Kiki Mims (Responsible Staff) Continued Care and Services Coordination
--- OUTSIDE RECORDS SUMMARY | 2025-03-03 02:28 | XMS_ITS | Data Portability ---
Author Organization [facility], Main Office Address [address] [place] [address] [address] [place] [address] Care Team Providers Care Weighmaster Name Role Phone [facility] ([facility] OTHER Assessment Encounter Date Assessment [...] Address Organization Details Recorded Time Alcohol abuse 35814924 Active 2022 HALEY WYATT [address] [facility], [address], [place], [address], [facility] 3 16:10:20 Alcoholic cirrhosis 348617205 Active 2022 HALEY WYATT [address] [facility], [address], [place], [address], [facility] 3 16:10:32 Anemia 058229647 Active 2022 HALEY WYATT [address] [facility], [address], [place], [address], [facility] 3 16:10:45 Hepatic encephalop athy 33149321 Active 2022 HALEY WYATT [address] [facility], [address], [place], [address], [facility] 3 16:11:37 Acute respirator y failure 72344637 Active 2022 HALEY WYATT [address] [facility], [address], [place], [address], [facility] 3 16:12:23 Laboratory finding abnormal Active 2022 hypokalemi a hypomagnes ium pancytopen ua repleted in acute care. mag oxide 400 mg BID HALEY WYATT [address] [facility], [address], [place], [address], [facility] 3 16:40:30 Congestive heart failure 93433120 Active 2022 HALEY WYATT [address] [facility], [address], [place], [address], [facility] 3 16:25:07 Homeless 52196318 Active 2022 ANDREYHALEY GASPAR [address] [facility], [address], [place], [address], [facility] 3 16:55:00 Pancytopen ia 686507499 Active 2022 ANDREYHALEY GASPAR [address] [facility], [address], [place], [address], [facility] 3 21:48:09 Esophageal varices 96002346 Active 2022 HALEY WYATT [address] [facility], [address], [place], [address], [facility] 3 16:19:34 Problem Notes None recorded. [...] 110 mm[Hg] 70 mm[Hg] Lis Oconnell MD [address] [place] [address], [facility] [address], [place], [address], [facility] 4 08:21:06 Date Recorded Heart rate Respiratory rate Body temperature Oxygen saturation Oxygen saturation in Arterial blood by Pulse oximetry Systolic blood pressure Diastolic blood pressure Provider Name and Address Organization Details Last Updated DateTime 4 67 /min 16 /min 97.6 [degF] 95 % 95 % 107 mm[Hg] 66 mm[Hg] BRADY HOGAN NP [address] [facility], [address], [place], [address], [facility] 4 10:20:23 Social History Question Answer Notes LastModified by Organizat ion Details LastModified Time Tobacco Smoking Status Former Smoker ANDREY RODRIGUZEHALEY CRUZ [address] [facility], [address], [place], [address], [facility] 09/12/2023 16:57:06 Do You Have An [...] Do You Have A Medical Power Of Building And Grounds Supervisor? No HCP/brother Information not available 09/12/2023 What [...] mcg/0.3 mL dose 3 completed Mojgan jain [facility] 11/10/2023 13:12:58 Tdap 1 completed Mojgan jain [facility] 03/01/2024 11:01:29 Td (adult), 5 Lf tetanus toxoid, preservative free, adsorbed 7 completed Mojgan jain [place] - [facility] 03/01/2024 11:06:00 Past Encounters Encounter ID Performer Location Encounter Start Date Encounter Closed Date Diagnosis/Indication Diagnosis SNOMED-CT Code Diagnosis ICD10 Code Diagnosis Note [id number] HALEY WYATT [facility] on [address] [place] [address] 09/12/2023 08:36:44 09/15/2023 08:04:55 Hepatic encephalopathy 63696663 K76.82 resolved in acute care/see hpistarted on lactuloser ifaximin 550 mg BIDlactulo se 40 g TID. Acute resp iratory failure 03748969 J96.00 with hypoxia d/t to acute on chronic heart failure-di uresed w/IV lasix resolved in acute care Anemia 458212767 D64.9 see hpiCT scan with distal esophageal varices.- EGD suspected gastric varies as source of bleedfollo w up with GI in 4 weeks for repeat EGD Congestive heart failure 58615280 I50.9 with preserved ejection fractionCT scan showed small plueral effusionCX R with bibasilar opacitiesc ontinue furosemide 20 mg BIDcontinu e spironolac tone 12.5 mg BIDlow salt diet.monit or weight Alcohol abuse 87753086 F 10.10 with acute withdrawal in acute care tx with phenobarbi germania taper.decl ined recovery support in acute carethiami ne 100 mg dailyfolic acid 1 mg daily Bleeding g astric varices 95030651 I86.4 source of anemiaomep razole [address] dailysucra lfate 1 gm BIDcontinu e PPI and sucralfate Homeless 72009670 Z59.00 Social service refer for community resources. [id number] Lis Oconnell MD [facility] on [address] [place] [address] 09/13/2023 05:12:10 09/15/2023 08:33:31 Acute on chronic diastolic heart failure 310143837 I50.33 improved:s pironolact one 12.5 mg bidfurosem eliana 20 mg bidwill monitor Alcohol abuse 20183479 F 10.10 thiamine 100 mg dailyfolic acid 1 gm dailyinter disciplina ry support for sobrietywi ll monitor and support as needed Bleeding e sophageal varices 62018917 I85.01 s/p blood transfusio ns, octeotride , banding/he mospray:om eprazole 40 mg dailysucra lfate 1 gm bidwill monitor Alcoholic cirrhosis 4200 92741 K70.31 Xifaxan 550 mg bidspirono lactone 12.5 mg bidfurosem eliana 20 mg bidwill monitor Hepatic encephalopathy 64662745 K76.82 lactulose 40 gm tidwill monitor [id number] HALEY WYATT [facility] on [address] [place] [address] 09/18/2023 11:37:36 09/20/2023 15:12:00 Congestive heart failure 27548037 I50.9 continue furosemide 20 mg BIDcontinu e spironolac tone 12.5 mg BIDlow salt diet.monit or weight Alcohol abuse 64677510 F 10.10 will consider acamprosta te 666 mg TID.thiami ne 100 mg dailyfolic acid 1 mg daily Bleeding g astric varices 92889670 I86.4 source of anemiaomep razole [address] dailysucra lfate 1 gm BIDcontinu e PPI and sucralfate Hepatic encephalopathy 87010807 K76.82 resolved in acute care/see hpistarted on lactuloser ifaximin 550 mg BIDlactulo se 40 g TID.- reports loose stool x's 1 daily. will continue to monitor for now . [id number] HALEY WYATT [facility] on [address] [place] [address] 10/06/2023 10:25:53 10/18/2023 12:16:47 Altered mental status 974005220 R41.82 see hpiconcern for hepatic encephalop athy due to hxsend to ER for further evaluation [id number] HALEY WYATT [facility] on [address] [place] [address] 10/12/2023 13:49:36 10/18/2023 15:10:16 Hepatic encephalopathy 56042241 K76.82 resolved in acute care/see hpiimaging with no acute processCon tinue lactulose, rifaximin, Lasix, spironolac toneFollow -up outpatient GI Congestive heart failure 73990660 I50.9 continue furosemide 20 mg BIDcontinu e spironolac tone 12.5 mg BIDlow salt diet.monit or weight Pancytopenia 317204176 D 61.818 wbc 3.41-Hgb 7.3-HCT 23.2Possib ly due to alcohol abuseWill continue to monitor CBC [id number] HALEY WYATT [facility] on [address] [place] [address] 10/16/2023 13:03:21 11/22/2023 15:10:28 Hepatic encephalopathy 91766007 K76.82 resolved in acute care/see hpiimaging with no acute processCon tinue lactulose, rifaximin, Lasix, spironolac toneFollow -up outpatient GI Congestive heart failure 04325439 I50.9 continue furosemide 20 mg BIDcontinu e spironolac tone 12.5 mg BIDlow salt diet.monit or weight Pancytopenia 906246623 D 61.818 see aboveimpro kiki hgb 8.8- Plt 68Possibly due to alcohol abuseWill continue to monitor CBC [id number] HALEY WYATT [facility] on [address] [place] [address] 10/24/2023 11:18:12 11/03/2023 11:47:28 Hepatic encephalopathy 31428262 K76.82 alert and oriented x's 2 today unsure of date.resol kiki in acute care/see hpiimaging with no acute processCon tinue lactulose, rifaximin, Lasix, spironolac toneFollow -up outpatient GI Congestive heart failure 42216935 I50.9 Stablke, no reported sxcontinue furosemide 20 mg BIDcontinu e spironolac tone 12.5 mg BIDlow salt diet.monit or weight Pain of le ft shoulder joint 0390631469 5789282 M25.512 see hpixray 3 viewstylen ol 975 mg scheduledm otrin 600 mg scheduled. PT referral for pain with abduction. [id number] HALEY WYATT [facility] on [address] [place] [id number] 10/27/2023 09:08:50 11/03/2023 12:28:46 Hepatic encephalopathy 69891928 K76.82 appears to be a baseline status, however he appears disoriente d at times.Cont inue lactulose, rifaximin, Lasix, spironolac toneFollow -up outpatient GI Congestive heart failure 81349552 I50.9 Stablecont inue furosemide 20 mg BIDcontinu e spironolac tone 12.5 mg BIDlow salt diet.monit or weight Pain of le ft shoulder joint 4181047537 5795422 M25.512 Xray completed, results reviewed with patient: Mild degenerati on of the left shoulder; no acute fracture or dislocatio n. continue with:tylen ol 975 mg scheduledm otrin 600 mg scheduled. PT referral for pain with abduction. [id number] HALEY WYATT [facility] on [address] [place] [id number] 11/08/2023 08:13:22 11/22/2023 16:43:01 Daisy-Zee tear 209137924 K22.6 2 days of melena with coffee-kell und emesis on presentati on.GI consulted and performed upper endoscopy on 10/31, evidence of daisy zee tear, gastric ulcers s/p clip placement. continue PPI omeprazole 40 mg twice daily.Carv edilol started as per recommenda tions for esophageal varicesPat ient was advised to avoid NSAID Esophageal varices 58318 008 I85.00 Started on carvedilol 6.25 mg bidomepraz ole 40 mg bidsucralf ate 1 gm BID Anemia 442960799 D64.9 Hgb 6.4 on presentati on to acute careDue to upper GI bleed,Rece ived 3 units of PRBC in acute careCarved ilol started for varices [id number] HALEY WYATT [facility] on [address] [place] [id number] 11/14/2023 07:57:53 12/01/2023 10:08:54 Daisy-Zee tear 074899961 K22.6 11/14 there has been no reported couging and vomiting. 2 days of melena with coffee-kell und emesis on presentati on.GI consulted and performed upper endoscopy on 10/31, evidence of daisy zee tear, gastric ulcers s/p clip placement. continue PPI omeprazole 40 mg twice daily.Carv edilol started as per recommenda tions for esophageal varicesPat ient was advised to avoid NSAID Esophageal varices 49059 008 I85.00 stableStar forrest on carvedilol 6.25 mg bidomepraz ole 40 mg bidsucralf ate 1 gm BID Anemia 502868283 D64.9 11/14will recheck labspatien t denies excess fatigue, weakness, shortness of breathdoes not appear pale, color normal. Hgb 6.4 on presentati on to acute careDue to upper GI bleed,Rece ived 3 units of PRBC in acute careCarved ilol started for varices [id number] HALEY WYATT [facility] on [address] [place] [address] 11/17/2023 08:07:13 12/01/2023 11:37:06 Daisy-Zee tear 688600494 K22.6 stable, There has been no new reported sx.2 days of melena with coffee-kell und emesis on presentati on.GI consulted and performed upper endoscopy on 10/31, evidence of daisy zee tear, gastric ulcers s/p clip placement. continue PPI omeprazole 40 mg twice daily.Carv edilol started as per recommenda tions for esophageal varicesPat ient was advised to avoid NSAID Esophageal varices 68622 008 I85.00 stableStar forrest on carvedilol 6.25 mg bidomepraz ole 40 mg bidsucralf ate 1 gm BID Anemia 746894419 D64.9 11/15: hgb 8.0 hct 25.6will recheck labs Hgb 6.4 on presentati on to acute careDue to upper GI bleed,Rece ived 3 units of PRBC in acute careCarved ilol started for varices [id number] Lis Oconnell MD [facility] on [address] [place] [id number] 11/24/2023 08:20:43 11/29/2023 17:59:33 Alcohol abuse 85968714 F10.10 thiamine 100 mg dailyfolic acid 1 gm dailyMVI dailyacamp rosate 666 mg tidinterdi sciplinary support for sobrietywi ll monitor and support as needed Upper gastrointestinal bleeding 71247112 K92.89 with history varices, Daisy Zee tear:sucra lfate 1 gm bidomepraz ole 40 mg d07cpeda monitoravo id NSAIDs Alcoholic cirrhosis 4200 55332 K70.31 Xifaxan 550 mg bidspirono lactone 12.5 mg bidfurosem eliana 20 mg dailylactu lose 40gm tidwill monitor Esophageal varices 43728 008 I85.00 see meds for history UGI bleed:also carvedilol 6.25 mg bidwill monitor [id number] BRADY HOGAN NP [facility] on [address] [place] [address] 11/28/2023 09:53:56 12/01/2023 12:57:26 Alcohol abuse 47484216 F10.10 thiamine 100 mg dailyfolic acid 1 gm dailyMVI dailyacamp rosate 666 mg tidinterdi sciplinary support for sobrietywi ll monitor and support as needed Upper gastrointestinal bleeding 33376762 K92.89 with history varices, Daisy Zee tear:sucra lfate 1 gm bidomepraz ole 40 mg [id number] monitoravo id NSAIDs Alcoholic cirrhosis 4200 16575 K70.31 Xifaxan 550 mg bidspirono lactone 12.5 mg bidfurosem eliana 20 mg dailylactu lose 40gm tidwill monitor Esophageal varices 95711 008 I85.00 see meds for history UGI bleed:carv edilol 6.25 mg bidwill monitor Health Concerns Section Related Observation LastModified by Organization Detai ls LastModified Time None Recorded Concern Status LastModified by Organization Details LastModified Time None Recorded Advance Directives Directive Y: Payers Encounter Date Sequence Insurance Name Policy Number Policy Yip Covered Member ID Yip Member ID Guarantor Name 11/08/2023 1 [place] [facility] Charbel Delgado [id number] Charbel Delgado 11/14/2023 1 [place] [facility] Charbel Delgado [id number] Charbel Delgado 11/17/2023 1 [place] [facility] [id number] Charbel Delgado 11/24/2023 1 [place] [facility] [id number] Charbel Delgado 11/28/2023 1 [place] [facility] [id number] Charbel Delgado Notes Date Note Type Note [...] endoscopy in a few weeks. Molst: HALEY Cumminsg [address] [facility], [address], [place], [address], [facility] 11/08/2023 16:31:23 11/14/2023 text/html Patient is 53-ye ar-old male seen today for acute rounding visit. Today he is stable, he was sent to ED on 11/09 for hgb noted 7.0 and had repeat labs in ED hgb 8.1. He returned to [facility] the same evening and has been stable. [...] in a few weeks. HALEY WYATT [address] [facility], [address], [place], [address], [facility] 11/14/2023 21:53:05 11/17/2023 text/html Patient is [...] no acute nursing concerns. HALEY WYATT [address] [facility], [address], [place], [address], [facility] 11/17/2023 13:21:44 11/24/2023 text/html This 53 year old male alf care resident is seen today for routine rounding visit and acute rounding visit. Medical history is remarkable for history of alcohol use disorder with alcoholic cirrhosis, HFpEF, hypertension, ADHD, anxiety, depression Patient was sent out of facility to ER at [facility] on 10/30/23 with melena and coffee-ground [...] full code assumed Lis Oconnell MD [address] [facility], [address], [place], [address], [facility] 11/24/2023 12:23:26 11/28/2023 text/html seen today for a cute rounding visit, CAOx3 he is complaining about being bored, independent in room, gait steady, mood stable, staff report no concerns BRADY HOGAN NP [address] [facility], [address], [place], [address], [facility] 11/28/2023 10:23:34
--- OUTSIDE RECORDS SUMMARY | 2025-03-03 02:28 | XMS_ITS ---
Author Organization [employer] [facility] Address [address] [place] [address] Care Team Providers Care Roller Hand Name Role Phone Unavailable Primary Care Provider Unavailabl e CM Complex Status:Outreach In Progress (Enrolling) Start date:02/05/2025 Enrollment reason:ADT Feed Overview ED- Pt went to [facility] ED on 02/04/25. Case Team Name Relationship Phone Missy Milner RN Registered Nurse(Responsible S taff) Continued Care and Services Coordination
--- NOTE | 2025-03-03 02:30 | MHC.EDTECH ---
Patient BIBA,changed into hospital attire, security at bedside and searched pts belongings,patient belongings left at bedside pt denies SI, HI, vitals taken, RN at bedside,call harris in reach
--- NOTE | 2025-03-03 02:41 | ED_ITS ---
HPI - General Adult General Chief complaint: General Medical Stated complaint: ETOH/ SORE LEGS Time Seen by Provider: 03/03/25 02:25 Source: patient, RN notes reviewed and old records reviewed Mode of arrival: EMS History of Present Illness ED Provider: Chapis VIVAR narrative: 55-year-old male who is frequently this emergency department for alcohol intoxication presents for evaluation of leg pain and alcohol intoxication. Patient was discharged from this facility yesterday after being admitted for congestive heart failure. He was given some IV Lasix and discharged after his symptoms improved. He reports that he has been walking around all day as well as having a few beers. he denies any shortness of breath or any other complaints. He was no other complaints or concerns at this time Related Data Home Medications ?Medication ?Instructions ?Recorded ?Confirmed lactulose 10 gram/15 mL oral 30 ml PO TID 02/01/25 03/03/25 solution omeprazole 40 mg capsule,delayed 40 mg PO DAILY@0630 02/01/25 03/03/25 release Previous Rx's ?Medication ?Instructions ?Recorded acetaminophen 325 mg tablet 975 mg (3 x 325 mg) PO Q6H PRN 12/17/24 Pain, Mild 1-3,Fever,Headache #30 tabs magnesium oxide 400 mg (241.3 mg 400 mg PO DAILY #30 tabs 12/17/24 magnesium) tablet sodium chloride 0.65 % nasal spray 1 spray intranasal Q1H PRN Dryness 12/17/24 aerosol (Deep Sea Nasal) #44 mL sucralfate 1 gram tablet (Carafate) 1 g PO BID #60 tabs 12/17/24 folic acid 1 mg tablet 1 mg PO DAILY #90 tabs 02/04/25 thiamine mononitrate (vit B1) 100 100 mg PO DAILY #90 tabs 02/04/25 mg tablet spironolactone 25 mg tablet 25 mg PO DAILY #90 tabs 02/13/25 Allergies Allergy/AdvReac Type Severity Reaction Status Date / Time No Known Allergies Allergy Verified 03/03/25 02:39 [No Known Allergies*] Review of Systems 2 Constitutional: Constitutional: Denies body ache(s), Denies chills, Denies fever(s) and Denies frequent falls Eyes: Eyes: Denies blurry vision ENT: Denies vertigo and Denies dizziness Cardiovascular: Cardiovascular: Denies chest pain, Reports leg edema and Denies dyspnea Respiratory: Respiratory: Denies cough and Denies dyspnea Gastrointestinal: Gastrointestinal: Denies abdominal pain, Denies nausea and Denies vomiting Musculoskeletal: Musculoskeletal: Denies back pain Integumentary/Breasts: Skin/Breast: Denies rash Neurologic: Denies vertigo, Denies dizziness and Denies frequent falls Psychiatric: Psychiatric: Denies anxiety PMF Past Medical History Medical History CHF (congestive heart failure) Alcohol use disorder Alcohol abuse Acute hypoxemic respiratory failure Anemia Pneumonia Alcohol withdrawal syndrome Pancytopenia Alcohol abuse Thrombocytopenia Esophageal varices Acute on chronic anemia Alcoholic liver disease Aspiration pneumonia Thrombocytopenia Malnutrition CHF (congestive heart failure) Anemia Hypomagnesemia Cirrhosis Thrombocytopenia Acute on chronic anemia CHF (congestive heart failure) Anemia Alcohol abuse Surgical History No history of previous surgery Social History Social History Household Members: None Household Members Other:: homeless Housing: Homeless Housing Other:: [facility]eless [facility] Do you presently have visiting nurse or other home services: No Unable to assess alcohol history related to: Refusing to respond Alcohol intake: current Alcohol intake frequency: 3 or more drinks per day Alcohol type: beer and hard liquor Comment: 1 assist to bathroom Patient Tobacco Use Status: Former Tobacco user Tobacco use type: Cigarette Smoked in Last 30 Days: No Second Hand Smoke Exposure: No Advance Directives: Yes Advance Directives on File: Yes Advance Directives Date on File: 07/13/23 Do you have a plan to hurt others: No Plan service: No Physical Exam ED Vital Signs: Vital Signs - 24 hr 03/03/25 02:35 03/03/25 04:04 03/03/25 05:36 Temperature 97.8 F 97.7 F 97.7 F Pulse Rate 73 75 82 Respiratory Rate 18 14 16 Blood Pressure 116/48 L 94/46 L 99/57 L Pulse Oximetry 97 92 88 L Oxygen Delivery Method Nasal Cannula Nasal Cannula Nasal Cannula Oxygen Flow Rate 3 4 03/03/25 05:51 03/03/25 06:23 03/03/25 08:44 Temperature 98.1 F Pulse Rate 75 82 Respiratory Rate 16 12 Blood Pressure 102/47 L Pulse Oximetry 97 94 Oxygen Delivery Method Oxymask Oxymask Oxygen Flow Rate 3 4 03/03/25 09:30 03/03/25 10:38 03/03/25 11:20 Temperature Pulse Rate 79 80 Respiratory Rate 12 12 Blood Pressure 101/50 L Pulse Oximetry 86 L 91 L 94 Oxygen Delivery Method Nasal Cannula Nasal Cannula Nasal Cannula Oxygen Flow Rate 2 1 2 BMI result Body Mass Index 18.9 Const General: healthy appearing, comfortable, no acute distress, alert and awake Nutritional Appearance: well nourished Orientation/consciousness: patient oriented x3 HENMT Head: Yes normocephalic and Yes atraumatic Eyes Eyelids: Yes eyelids normal Conjunctivae: conjunctivae normal Sclerae: sclerae normal Corneas: corneas normal Pupils: Equal, round and reactive pupils present EOM: EOMs intact bilaterally Neck Neck: Yes full ROM Resp Effort & Inspection: normal respiratory effort, able to speak in complete sentences, no audible wheezes and not labored Auscultation: clear to auscultation bilaterally Cardio Other: 2+ bilateral pitting edema to lower extremities Rate: regular rate Rhythm: regular rhythm GI Inspection: No distended Palpation (GI): Soft to palpation, not firm, nontender, no guarding and not rigid Skin General skin exam: elasticity normal Neuro General: patient oriented x3 Cranial nerves: Yes CN's II-XII intact bilaterally, Yes Equal, round and reactive pupils present and Yes Bilaterally intact EOM present Cognition (Neuro): normal cognition Extrem Other: Moving all extremities well without any obvious deformities Course Course Course Narrative: Time: 10:17 Date: 03/03/25 Provider: MADISON Hopson Patient in physician observation for clinical sobriety/CARE team eval.? Patient hypoxic overnight on 4L NC sating 82-88% put on OxyMask at 3L around 0600. OxyMask removed and switch to nasal cannula at 2L this morning around 0900 however de-satted to 86% on 2L > increased to 5L NC & satting at 95%. Labs at baseline. Chest x-ray showing perihilar edema vs bronchitis/bronchiolitis Case discussed with hospitalist, declined admission, recommend case management placement rather than admission for medication management / hopeful compliance. > ?Section 35 on patient. Will consult CARE team & continue to monitor -1213--section 35 is active on patient, however court is closed today due to holiday. Will reopen tomorrow. > patient desatted to 83% on room air when ambulated to the bathroom. Will obtain CM consult & speak with respiratory about possible home O2 -1252--patient got himself dressed and walked out the ED ambulance bay. he is clinically sober & competent to make his own decisions. Ambulating with steady gait Medications Administered Discontinued Medications Generic Name Dose Route Start Last Admin Trade Name David PRN Reason Stop Dose Admin Albuterol Sulfate 2.5 mg/ 0 mg 03/03/25 06:10 03/03/25 06:23 Albuterol/Ipratropium 3 ml INHALE 03/03/25 06:11 5 dose ONCE ONE Administration Furosemide 40 mg 03/03/25 08:59 03/03/25 09:28 Furosemide 40 Mg Tablet PO 03/03/25 09:00 40 mg ONCE ONE Administration Protocol Furosemide 40 mg 03/03/25 10:39 03/03/25 11:21 Furosemide 40 Mg/4 Ml Vial IVPUSH 03/03/25 10:40 40 mg STAT STA Administration Protocol Thiamine HCl 50 mg 03/03/25 08:57 03/03/25 09:28 Thiamine Hcl 100 Mg Tablet PO 03/03/25 08:58 50 mg ONCE ONE Administration Medical Decision Making Medical Decision Making MDM Narrative: 55-year-old male presents for evaluation of acute alcohol intoxication and leg swelling. He does have a history of heart failure. He has been walking around all day and consuming alcohol after being discharged from this facility. He was refusing any labs, he denies any other complaints. Given that he was just discharged yesterday afternoon, less than 24 hours ago I do not feel like he needs labs at this time. He has no chest pain or shortness of breath. Plan for sober re-evaluation Differential Diagnosis Differential Diagnoses: The differential diagnosis associated with the presentation includes acute alcohol intoxication Substance abuse Leg pain CHF Lab Data 03/03/25 05:47 03/03/25 05:47 Labs: Lab Results 03/03/25 Range/Units 05:47 WBC 3.6 L (4.8-10.8) X10*3/uL RBC 2.86 L (4.60-5.80) X10*6/uL Hgb 8.2 L (14.0-18.0) g/dl Hct 26.0 L (42.0-52.0) % MCV 90.9 (80.0-98.0) fL MCH 28.7 (27.0-33.0) pg MCHC 31.5 (31.0-36.0) g/dl RDW 14.7 (11.0-16.0) % Plt Count 54 L (160-400) X10*3/uL MPV 10.6 (9.4-12.4) fL Immature Gran % (Auto) 0.3 (0.0-0.4) % Neut % (Auto) 50.9 (45-73) % Lymph % (Auto) 33.0 (20-40) % [place] % (Auto) 10.3 (2-11) % Eos % (Auto) 4.7 H (0-4) % Baso % (Auto) 0.8 (0-2) % Lymph # (Auto) 1.2 (1.2-4.9) X10*3/uL [place] # (Auto) 0.4 (0.1-1.2) X10*3/uL Eos # (Auto) 0.2 (0.0-0.4) X10*3/uL Baso # (Auto) 0.0 (0.0-0.2) X10*3/uL Abs Immat Gran (auto) 0.01 (0.00-0.03) X10*3/uL Absolute Neuts (auto) 1.8 L (2.0-8.3) x10*3/uL Absolute Nucleated RBC 0.000 (0.0-0.012) X10*3/uL Nucleated RBC % (auto) 0.0 (0.0-0.2) /100WBC PT 16.3 H (10.9-12.4) SEC INR 1.4 H (0.9-1.1) APTT 38.1 H (26.0-36.8) SEC Sodium 137 (135-145) mmol/L Potassium 3.7 (3.3-5.1) mmol/L Chloride 104 (96-108) mmol/L Carbon Dioxide 21 L (22-29) mmol/L Anion Gap 16 (12-20) BUN 20 H (9-16) mg/dL Creatinine 1.05 (0.5-1.4) mg/dL Estim Creat Clear Calc 59.1 Estimated GFR > 60 Random Glucose 91 (60-115) mg/dL Calcium 8.5 (8.4-10.2) mg/dL Magnesium 1.6 (1.6-2.6) mg/dL Total Bilirubin 0.3 (0.0-1.0) mg/dL AST 34 (5-37) U/L ALT 6 (0-40) U/L Alkaline Phosphatase 107 (39-117) U/L B-Natriuretic Peptide 25 (<100) pg/mL Total Protein 7.3 (6.5-8.0) g/dL Albumin 3.4 L (3.5-5.0) g/dL Ethyl Alcohol 207 mg/dL Discharge Plan Discharge Clinical Impression: Acute alcohol intoxication Patient Disposition: Left Against Medical Advice Additional Instructions: Alcohol use disorder You were seen in the Emergency Department today for treatment of alcohol use disorder.? You may have been given medications to help with your withdrawal symptoms.? Please do not drink alcohol with them. This is very dangerous and can cause respiratory depression or other adverse reactions depending on the medication. If you would like to cut down or stop your alcohol use please consider calling our outpatient Addiction Treatment office:? [facility] (M-F 9a-5p) [address] [place] [address] ? You have also been given a list of treatment providers in the area that can assist as well.? If you experience seizures, vomiting blood, black stools, falls, severe headache, chest pain, fevers, trouble breathing, hallucinations or any other concerns you need to call 911 or seek immediate care. Please stay hydrated. Prescriptions: No Action sucralfate [Carafate] 1 gram tablet 1 g PO BID Qty: 60 0RF acetaminophen 325 mg Tablet 975 mg PO Q6H PRN (Reason: Pain, Mild 1-3,Fever,Headache) Qty: 30 0RF magnesium oxide 400 mg (241.3 mg magnesium) Tablet 400 mg PO DAILY Qty: 30 0RF Deep Sea Nasal 0.65 % Aerosol,[place] 1 spray intranasal Q1H PRN (Reason: Dryness) Qty: 44 0RF spironolactone 25 mg tablet 25 mg PO DAILY Qty: 90 0RF lactulose 10 gram/15 mL solution 30 ml PO TID omeprazole 40 mg capsule,delayed release(DR/EC) 40 mg PO DAILY@0630 folic acid 1 mg Tablet 1 mg PO DAILY Qty: 90 0RF thiamine mononitrate (vit B1) 100 mg Tablet 100 mg PO DAILY Qty: 90 0RF Print Language: Iraqi
--- NOTE | 2025-03-03 04:05 | MHC.EDTECH ---
Rounds and vitals completed, pt is sleeping appears comfortable,call [facility]arris in reach
--- NOTE | 2025-03-03 05:05 | PC.NURSE ---
noted active bleeding from left/right nare. Pt report he has been having 3 days of nose bleeding. Notified provider
[2025-03-03 05:51] LABS: MANUAL DIFF FLAG NO
[2025-03-03 05:53] LABS: Basophils Percent Auto 0.8 % (0-2); Eosinophils Absolute Auto 0.2 X10*3/uL (0.0-0.4); Eosinophils Percent Auto 4.7 % (0-4); Hemoglobin 8.2 g/dl (14.0-18.0); Imm Gran Abs Auto 0.01 X10*3/uL (0.00-0.03); Imm Gran Pct Auto 0.3 % (0.0-0.4); Lymphocytes Absolute Auto 1.2 X10*3/uL (1.2-4.9); Mean Corpuscular HGB Conc 31.5 g/dl (31.0-36.0); Mean Corpuscular Hemoglobin 28.7 pg (27.0-33.0); Mean Corpuscular Volume 90.9 fL (80.0-98.0); Mean Platelet Volume 10.6 fL (9.4-12.4); Monocytes Absolute Auto 0.4 X10*3/uL (0.1-1.2); Monocytes Percent Auto 10.3 % (2-11); Neutrophils Absolute Auto 1.8 x10*3/uL (2.0-8.3); Neutrophils Percent Auto 50.9 % (45-73); Platelet Count 54 X10*3/uL (160-400); Red Blood Count 2.86 X10*6/uL (4.60-5.80); Red Cell Distribution Width 14.7 % (11.0-16.0); White Blood Count 3.6 X10*3/uL (4.8-10.8)
--- NOTE | 2025-03-03 06:01 | PC.NURSE ---
PT became hypoxic on 4L sating to 82-88%. put on oxymask at 3L
[2025-03-03 06:07] LABS: Alanine Aminotransferase 6 U/L (0-40); Albumin Level 3.4 g/dL (3.5-5.0); Alkaline Phosphatase 107 U/L (39-117); Anion Gap 16 (12-20); Aspartate Amino Transferase 34 U/L (5-37); Bilirubin Total 0.3 mg/dL (0.0-1.0); Blood Urea Nitrogen 20 mg/dL (9-16); Calcium 8.5 mg/dL (8.4-10.2); Carbon Dioxide 21 mmol/L (22-29); Chloride 104 mmol/L (96-108); Creatinine Clr Calc Pharmacy 59.1; Estimated Glomerular Filt Rate > 60; Ethanol 207 mg/dL; Glucose Random 91 mg/dL (60-115); Magnesium 1.6 mg/dL (1.6-2.6); Potassium 3.7 mmol/L (3.3-5.1); Sodium 137 mmol/L (135-145); Total Protein 7.3 g/dL (6.5-8.0)
[2025-03-03 06:08] LABS: INTERNATIONAL NORM RATIO 1.4 (0.9-1.1); Prothrombin Time 16.3 SEC (10.9-12.4)
[2025-03-03 06:11] LABS: Partial Thromboplastin Time 38.1 SEC (26.0-36.8)
[2025-03-03] MEDS: Albuterol Sulfate 2.5 MG, Albuterol/Iprat 2.5/0.5MG 3 ML 3 ML INHALE (06:23)
--- NOTE | 2025-03-03 07:54 | MHC.CARE ---
Pt has an active Section 35 warrant that expires 03/06
[2025-03-03] MEDS: Furosemide 40 MG TABLET PO (09:28)
[2025-03-03] MEDS: Thiamine HCL 100 MG TABLET 50 MG PO (09:28)
--- NOTE | 2025-03-03 09:30 | PC.NURSE ---
patient was switched from oxymask to 2lNC, desat down to 86%, o2 moved up to 4lNC. patient now satting 93%. provider aware. 18# placed in left FA
[2025-03-03 09:44] LABS: B Type Natriuretic Peptide 25 pg/mL (<100)
--- NOTE | 2025-03-03 10:20 | PHA.MEDREC ---
Pharmacy Consult ? Medication Reconciliation Pharmacy has completed the medication reconciliation. Patient just discharged yesterday 03/02/25, utilized discharge summary
[2025-03-03] MEDS: Furosemide 40 MG/4 ML VIAL IVPUSH (11:21)
--- NOTE | 2025-03-03 12:12 | PC.NURSE ---
patient voided 600cc after lasix. patient ambulated to bathroom and back off of oxygen, patient desat down to 83%.
--- NOTE | 2025-03-03 12:50 | PC.NURSE ---
patient requesting to leave, got dressed. IV removed by this RN. patient refusing to stay for care. ED provider aware, charge nurse aware. patient ambulated off of unit with steady gait
--- NOTE | 2025-03-03 13:17 | MHC.CM.PN ---
CM RECEIVED ED CM CONSULT HOWEVER PT LEFT FACILITY BEFORE HE COULD BE SEEN.
== END 2025-03-03 12:56 | disposition left against medical advice (07) ==
PROVIDERS: Physician Assistant; Emergency Provider Internal Medicine
DX: F10.129 Alcohol abuse with intoxication, unspecified (principal); Y90.7 Blood alcohol level of 200-239 mg/100 ml; M79.10 Myalgia, unspecified site; M79.605 Pain in left leg; M79.604 Pain in right leg; R06.02 Shortness of breath; Z79.899 Other long term (current) drug therapy; Z87.891 Personal history of nicotine dependence; Z71.41 Alcohol abuse counseling and surveillance of alcoholic; Z51.81 Encounter for therapeutic drug level monitoring
CPT/HCPCS: 36415; 71045; 80053; 80307; 83735; 83880; 85025; 85610; 85730; 94640; 96374; 99284; J1938; S9485

== ENCOUNTER → 2025-03-03 06:10 | Outpatient (BNV) | payer MEDICAID, SELFPAY | PROVIDERS: Emergency Provider Internal Medicine; Visit Provider Radiology Diagnostic Radiology | DX: R06.02 Shortness of breath (principal) | CPT/HCPCS: 71045 ==

== ENCOUNTER 2025-03-04 01:53 | Emergency (ER) | payer MEDICAID, SELFPAY ==
--- NOTE | ~2025-03-04 | XR_ITS ---
CLINICAL HISTORY: pain , PT UNABLE TO COOPERATE, BEST IMAGES AT THIS TIME 2 views left shoulder Comparison: None Findings: There is no fracture or dislocation. Acromioclavicular joint space is preserved. Glenohumeral joint space is not profiled. Impression: No acute findings. This document has been electronically signed by: Eris Ryan MD on 03/04/2025 03:31:04
--- NOTE | ~2025-03-04 | XR_ITS ---
CLINICAL HISTORY: pain 3 views left ankle Comparison: CR/SR - XR ANKLE LT MIN 3V - 11/27/24 15:35 EST Findings: There is no fracture or dislocation. Joint spaces appear normal. There is soft tissue swelling/subcutaneous edema. There is arterial calcification. Impression: No acute findings. This document has been electronically signed by: Eris Ryan MD on 03/04/2025 03:30:41
[2025-03-04 01:58] VITALS: BP 152/98; PULSE 84
[2025-03-04 02:00] VITALS: BP 94/49; PULSE 82; RESP 18; TEMP 36.6; O2SAT 91; BMI 24.2
--- NOTE | 2025-03-04 02:16 | ED.GENADULT ---
HPI - General Adult General Chief complaint: Extremity Problem Stated complaint: bilateral shoulder pain radiating down back Time Seen by Provider: 03/04/25 02:06 Source: patient and EMS Mode of arrival: EMS Limitations: no limitations History of Present Illness ED Provider: DR. Goldsmith HPI narrative: 55-year-old homeless male who is frequently come to the emergency department for alcohol intoxication, presented for evaluation of left leg and left shoulder pain, patient stated that he has been walking in the streets. Patient has no shortness of breath, no lower extremity swelling or edema. Admitted to drinking alcohol, no SI, no HI Related Data Home Medications ?Medication ?Instructions ?Recorded ?Confirmed lactulose 10 gram/15 mL oral 30 ml PO TID 02/01/25 03/03/25 solution omeprazole 40 mg capsule,delayed 40 mg PO DAILY@0630 02/01/25 03/03/25 release Previous Rx's ?Medication ?Instructions ?Recorded acetaminophen 325 mg tablet 975 mg (3 x 325 mg) PO Q6H PRN 12/17/24 Pain, Mild 1-3,Fever,Headache #30 tabs magnesium oxide 400 mg (241.3 mg 400 mg PO DAILY #30 tabs 12/17/24 magnesium) tablet sodium chloride 0.65 % nasal spray 1 spray intranasal Q1H PRN Dryness 12/17/24 aerosol (Deep Sea Nasal) #44 mL sucralfate 1 gram tablet (Carafate) 1 g PO BID #60 tabs 12/17/24 folic acid 1 mg tablet 1 mg PO DAILY #90 tabs 02/04/25 thiamine mononitrate (vit B1) 100 100 mg PO DAILY #90 tabs 02/04/ mg tablet spironolactone 25 mg tablet 25 mg PO DAILY #90 tabs 02/13/25 Allergies Allergy/AdvReac Type Severity Reaction Status Date / Time No Known Allergies Allergy Verified 03/04/25 02:01 [No Known Allergies*] Review of Systems Review of Systems: All other systems are reviewed and are negative Constitutional: Reports as per HPI and Reports no additional constitutional complaints Eyes: Reports as per HPI and Reports no additional eye complaints Reports system reviewed and no additional complaints, except as documented Cardiovascular: Reports as per HPI and Reports no additional cardiovascular complaints Respiratory: Reports as per HPI and Reports no additional respiratory complaints Gastrointestinal: Reports as per HPI and Reports no additional gastrointestinal complaints Genitourinary: Reports no additional female genitourinary complaints Musculoskeletal: Reports no additional musculoskeletal complaints Skin/Breast: Reports system reviewed and no additional complaints, except as docu Psychiatric: Reports no additional psychiatric complaints Endocrine: Reports no additional endocrine complaints Hematologic/Lymphatic: Reports no additional hematologic/lymphatic complaints Allergic/Immunologic: Reports no additional allergic/immunologic complaints Reports system reviewed and no additional complaints, except as documented and Reports Abnormal speech present [facility] Past Medical History Medical History CHF (congestive heart failure) Alcohol use disorder Alcohol abuse Acute hypoxemic respiratory failure Anemia Pneumonia Alcohol withdrawal syndrome Pancytopenia Alcohol abuse Thrombocytopenia Esophageal varices Acute on chronic anemia Alcoholic liver disease Aspiration pneumonia Thrombocytopenia Malnutrition CHF (congestive heart failure) Anemia Hypomagnesemia Cirrhosis Thrombocytopenia Acute on chronic anemia CHF (congestive heart failure) Anemia Alcohol abuse Surgical History No history of previous surgery Social History Social History Household Members: None Household Members Other:: homeless Housing: Homeless Housing Other:: Homeless senior living Do you presently have visiting nurse or other home services: No Unable to assess alcohol history related to: Refusing to respond Alcohol intake: current Alcohol intake frequency: 3 or more drinks per day Alcohol type: beer Comment: 1 assist to bathroom Patient Tobacco Use Status: Former Tobacco user Tobacco use type: Cigarette Smoked in Last 30 Days: No Second Hand Smoke Exposure: No Use of substances other than those prescribed or required for medical reasons: No Advance Directives: Yes Advance Directives Information Provided: Yes Advance Directives on File: Yes Advance Directives Date on File: 07/13/23 Do you have a plan to hurt others: No Plan service: No Physical Exam ED Vital Signs: Vital Signs - 24 hr 03/04/25 02:00 03/04/25 06:36 03/04/25 08:25 Temperature 97.9 F 98.0 F 98.1 F Pulse Rate 82 81 78 Respiratory Rate 18 16 18 Blood Pressure 94/49 L 107/57 L 106/53 L Pulse Oximetry 91 L 95 88 L Oxygen Delivery Method Room Air Room Air Room Air BMI result Body Mass Index 24.2 Vital signs have been reviewed and appear to be correct. Blood pressure elevated. Heart rate normal. Respiratory rate normal. Temperature normal. Oxygen saturation normal. Appearance: Alert. Oriented X3. No acute distress. Head: Normal external exam. Normocephalic. Atraumatic. No [place] signs noted. No raccoon eyes noted Eyes: PERRLA. EOMI. Conjunctiva and sclera normal. Eyelids normal. ENT: TM's Normal. Pharynx normal. Uvula midline. Moist mucous membranes. No trismus noted. No drooling noted. No muffled voice noted. Neck: Normal inspection. Neck supple. FROM. No adenopathy. Thyroid Normal. No meningeal signs. No neck mass noted. CVS: Normal heart rate and rhythm. Heart sound normal. No murmurs noted. Pulses normal throughout. Respiratory: No respiratory distress. Painless inspiration. Breath sounds normal. No wheezes/rales/rhonchi noted. Chest nontender. No accessory muscle usage noted or decreased air movement noted. Abdomen: Soft and nontender. Bowel sounds normal in all 4 quadrants. No distention noted. No organomegaly noted. No visible injury noted. Back: No CVA tenderness. Full range of motion noted. Skin: Skin warm and dry. Normal skin color. Normal skin turgor. No rashes/lesions/lacerations noted. Extremities: No lower extremity edema. Left shoulder tenderness not no deformity, no step-off, neurovascularly intact. Left ankle tenderness, no swelling, no edema, neurovascularly intact. Neuro: Oriented X 3. Cranial nerve exam: II-XII are grossly intact No motor deficit. No sensory deficit. Reflexes normal. Course Reevaluation(s) Reevaluation #1: Alcohol intoxication, patient is sober, steady at his baseline, negative x-ray for left shoulder and left ankle, care team is suggesting to keep the patient till 09:00 to file a section 35. Time: 06:42 Reevaluation #2: He is awake alert at this time his gait is stable patient has a Section 35 on file, patient will go on front of the warehouse assistant Time: 08:32 Medical Decision Making Differential Diagnosis Differential Diagnoses: The differential diagnosis associated with the presentation includes (Left shoulder fracture, left ankle fracture, alcohol intoxication.) Admission/Observation Consideration of admission/observation: Escalation of care including admission/observation considered Social Determinants Patient?s care significantly limited by Social Determinants of Health including: Inadequate housing and Low income Discharge Plan Discharge Clinical Impression: Alcohol intoxication Patient Disposition: Home, Self-Care Instructions: Alcohol Intoxication (ED), Abuse of Alcohol (DC), Alcohol Use Disorder (ED) Prescriptions: No Action sucralfate [Carafate] 1 gram tablet 1 g PO BID Qty: 60 0RF acetaminophen 325 mg Tablet 975 mg PO Q6H PRN (Reason: Pain, Mild 1-3,Fever,Headache) Qty: 30 0RF magnesium oxide 400 mg (241.3 mg magnesium) Tablet 400 mg PO DAILY Qty: 30 0RF Deep Sea Nasal 0.65 % Aerosol,[place] 1 spray intranasal Q1H PRN (Reason: Dryness) Qty: 44 0RF spironolactone 25 mg tablet 25 mg PO DAILY Qty: 90 0RF lactulose 10 gram/15 mL solution 30 ml PO TID omeprazole 40 mg capsule,delayed release(DR/EC) 40 mg PO DAILY@0630 folic acid 1 mg Tablet 1 mg PO DAILY Qty: 90 0RF thiamine mononitrate (vit B1) 100 mg Tablet 100 mg PO DAILY Qty: 90 0RF Print Language: Bangladeshi
--- OUTSIDE RECORDS SUMMARY | 2025-03-04 02:20 | XMS_ITS ---
Author Organization [employer] [facility] Address [address] [place] [address] Care Team Providers Care Licensed Practical Nurse Clinic Nurse Name Role Phone Unavailable Primary Care Provider Unavailabl e CM Complex Status:Outreach In Progress (Enrolling) Start date:02/05/2025 Enrollment reason:ADT Feed Overview ED- [place] [facility] [place]. Case Team Name Relationship Phone Missy Milner RN Registered Nurse(Responsible S taff) Continued Care and Services Coordination
--- OUTSIDE RECORDS SUMMARY | 2025-03-04 02:20 | XMS_ITS | Encounter Summary ---
Author Organization [facility] Address [address] [place] [address] Care Team Providers Care Power Barker Name Role Phone Unavailable Primary Care Provider Unavailabl e Encounter Details Date Type Department Care Team (Late st Contact Info) Description 03/03/2025 Orders Only GENERIC EXTERNAL DATA DEPARTMENT Provider, [...] 10:00 AM EDT Office Visit [facility] [address] [place] [address] Msiti Murry MD [address] [place] [address] documented as of this encounter Procedures Procedure Name Priority Date/Time Associated Diagnosis Comments XR CHEST 1 VIEW Routine 03/03/2025 8:10 AM EDT ETHANOL Routine 03/03/2025 5:47 AM EDT CBC WITH AUTO DIFFERENTIAL Routine 03/03/2025 5:47 AM EDT APTT Routine 03/03/2025 5:47 AM EDT PROTHROMBIN TIME-INR Routine 03/03/2025 5:47 AM EDT B TYPE NATRIURETIC PEPTIDE (BNP) Routine 03/03/2025 5:47 AM EDT MAGNESIUM Routine 03/03/2025 5:47 AM EDT COMPREHENSIVE METABOLIC PANEL Routine 03/03/2025 5:47 AM EDT documented in this encounter Results * XR Chest 1 View (03/03/2025 8:10 AM EDT) Anatomical Region Laterality Modality Chest Radiographic Lamar ging 03/03/2025 8:10 AM EDT Narrative 03/03/2025 8:12 AM EDT ? [facility] ?[address] ?[place] [address] ?XRay Report ? Signed ? Patient: Delgado,Charbel ?MR#: [id number] ? : 1970 ?Acct:[id number] ? Age/Sex: 55 / M ?ADM Date: 03/03/25 ? Loc: HO.ED ? Attending Dr: ? Ordering Physician: Jesus Manuel Chinchilla MD ?? Date of Service: 03/03/25 ?? Procedure(s): XR chest 1V ?? Accession Number(s): [id number] ? cc: [facility]; Jesus Manuel Chinchilla MD ? CLINICAL HISTORY: sob ? 1 view chest x-ray ? Comparison: CR - XR CHEST 1V - 02/28/25 01:18 EDT ? Findings: ?? Lungs are well inflated. ?? Cardiac silhouette is at the upper limits of normal for size. ?? Central interstitial markings are prominent. ?? No dense area of consolidation. ?? No pleural effusion or pneumothorax. ? IMPRESSION: ?? Perihilar edema versus bronchitis/bronchiolitis. ? This document has been electronically signed by: Deepak Omalley MD on ?? 03/03/2025 08:10:41 ? Dictated By: ?Deepak Omalley MD ? Signed By: ?<Electronically signed by Deepak Omalley MD in OV> ? 03/03/25 0811 ? DD/ 0810 ? TD/TT: 03/03/25 0810 ? Program Manager Transportation: ? Procedure Note Renato Winter - 03/03/[address] [place] [address] XRay Report Signed Patient: Isaias Delgado#: [id number] : 1970Acct:[id number] Age/Sex: 55 / MADM Date: 03/03/25 Loc: HO.ED Attending Dr: Ordering Physician: Jesus Manuel Chinchilla MD Date of Service: 03/03/25 Procedure(s): XR chest 1V Accession Number(s): [id number] cc: [facility]; Jesus Manuel Chinchilla MD CLINICAL HISTORY: sob 1 view chest x-ray Comparison: CR - XR CHEST 1V - 02/28/25 01:18 EDT Findings: Lungs are well inflated. Cardiac silhouette is at the upper limits of normal for size. Central interstitial markings are prominent. No dense area of consolidation. No pleural effusion or pneumothorax. IMPRESSION: Perihilar edema versus bronchitis/bronchiolitis. This document has been electronically signed by: Deepak Omalley MD on 03/03/2025 08:10:41 Dictated By: Deepak Omalley MD Signed By: <Electronically signed by Deepak Omalley MD in OV> 03/03/25 0811 DD/ 0810 TD/TT: 03/03/25 0810 Program Manager Transportation: [facility] External Provider IMG XR PROCEDURES Edited Result - Final * B Type Natriuretic Peptide (BNP) (03/03/2025 5:47 AM EDT) B Type Natriuretic Peptide 25 <100 pg/mL [facility] 03/03/2025 5:47 AM EDT 03/03/2025 9:22 AM EDT Generic External Data Provider LAB BLOOD ORDERAB LES Final Result [facility] [address] [place] [phone] * (ABNORMAL) Partial Thromboplastin Time, Activated (APTT) (03/03/2025 5:47 AM EDT) Partial Thromboplastin Time 38.1(H) 26.0 - 36.8 SEC [facility] Comment:For information rega rding the monitoring of direct thrombininhibitors, please refer to Pharmacy. 03/03/2025 5:47 AM EDT 03/03/2025 5:50 AM EDT Generic External Data Provider LAB BLOOD ORDERAB LES Final Result Performing Organization Address [facility] Co de Phone Number [facility] [address] [place] [phone] * (ABNORMAL) Prothrombin Time-INR (03/03/2025 5:47 AM EDT) Prothrombin Time 16.3(H) 10.9 - 12.4 SEC [facility] INTERNATIONAL NORM RATIO 1.4(H) 0.9 - 1.1 [facility] Comment:INTERNATIONAL NORMAL IZED RATIO (INR) REFERENCE RANGES Reference RangeFor patients not on anticoagulant therapy: 0.9 - 1.1INR ranges for oral anticoagulanttherapy:For prevention and treatment of venous thrombosis and pulmonary embolism: 2.0 - 3.0For acute myocardial infarction with aspirin therapy: 2.0 - 3.0For acute myocardial infarction without aspirin therapy: 3.0 - 4.0For patients with mechanical prosthetic heart valves: 2.5 - 3.5 03/03/2025 5:47 AM EDT 03/03/2025 5:50 AM EDT [employer] External Data Provider LAB BLOOD ORDERAB LES Final Result Performing Organization Address [facility] Co de Phone Number [facility] [address] [place] [phone] * Ethanol (03/03/2025 5:47 AM EDT) ETHANOL (MG/DL) IN SER/PLAS 207 mg/dL [facility] Comment:Serum/plasma ethanol results are to be used formedical/treatment purposes only. 03/03/2025 5:47 AM EDT 03/03/2025 5:50 AM EDT us Generic External Data Provider LAB BLOOD ORDERAB LES Final Result Performing Organization Address City/[facility]/ZIP Co de Phone Number [facility] [address] [place] [phone] * Magnesium (03/03/2025 5:47 AM EDT) Magnesium 1.6 1.6 - 2.6 mg/dL [facility] 03/03/2025 5:47 AM EDT 03/03/2025 5:50 AM EDT us Generic External Data Provider LAB BLOOD ORDERAB LES Final Result Performing Organization Address [facility]/ZIP Co de Phone Number [facility] [address] [place] [phone] * (ABNORMAL) Comprehensive Metabolic Panel (03/03/2025 5:47 AM EDT) Sodium 137 135 - 145 mmol/L [facility] Potassium 3.7 3.3 - 5.1 mmol/L [facility] Chloride 104 96 - 108 mmol/L [facility] Carbon Dioxide 21(L) 22 - 29 mmol/L [facility] Anion Gap 16 12 - 20 [facility] Urea Nitrogen (BUN) 20(H) 9 - 16 mg/dL [facility] Creatinine, Serum 1.05 0.5 - 1.4 mg/dL [facility] Creatinine Clr Calc Pharmacy 59.1 [facility] Comment:eGFR (calculated fro m the MDRD study equation) and eCrCl(calculated from the Cockcroft-Gault equation) are based ondifferent parameters and may not yield comparable results.If eCrCl result is absurd, please check patient'sheight/weight. Estimated Glomerular Filt Rate >60 [facility] Comment:Chronic Kidney Disea se: Estimated GFR < 60 mL/min/1.85a5Ghzjyt Kidney Disease: Estimated GFR < 15 mL/min/1.73m2 Glucose 91 60 - 115 mg/dL [facility] Calcium 8.5 8.4 - 10.2 mg/dL [facility] Bilirubin, Total 0.3 0.0 - 1.0 mg/dL [facility] Aspartate Amino Transferase 34 5 - 37 U/L [facility] Alanine Aminotransferase 6 0 - 40 U/L [facility] Total Protein 7.3 6.5 - 8.0 g/dL [facility] Albumin Level 3.4(L) 3.5 - 5.0 g/dL [facility] Alkaline Phosphatase 107 39 - 117 U/L [facility] 03/03/2025 5:47 AM EDT 03/03/2025 5:50 AM EDT us Generic External Data Provider LAB BLOOD ORDERAB LES Final Result [facility] [address] [place] [phone] * (ABNORMAL) CBC auto differential (03/03/2025 5:47 AM EDT) White Blood Count 3.6(L) 4.8 - 10.8 X10*3/uL [facility] Red Blood Count 2.86(L) 4.60 - 5.80 X10*6/uL [facility] Hemoglobin 8.2(L) 14.0 - 18.0 g/dl [facility] Hematocrit 26.0(L) 42.0 - 52.0 % [facility] Mean Corpuscular Volume 90.9 80.0 - 98.0 fL [facility] Mean Corpuscular Hemoglobin 28.7 27.0 - 33.0 pg [facility] Mean Corpuscular HGB Conc 31.5 31.0 - 36.0 g/dl [facility] Red Cell Distribution Width 14.7 11.0 - 16.0 % [facility] Platelet Count 54(L) 160 - 400 X10*3/uL [facility] Mean Platelet Volume 10.6 9.4 - 12.4 fL [facility] Neutrophils Percent Auto 50.9 45 - 73 % [facility] Imm Gran Pct Auto 0.3 0.0 - 0.4 % [facility] Lymphocytes Percent Auto 33.0 20 - 40 % [facility] Monocytes Percent Auto 10.3 2 - 11 % [facility] Eosinophils Percent Auto 4.7(H) 0 - 4 % [facility] Basophils Percent Auto 0.8 0 - 2 % [facility] NRBC Pct Auto 0.0 0.0 - 0.2 /100WBC [facility] Neutrophils Absolute Auto 1.8(L) 2.0 - 8.3 x10*3/uL [facility] Imm Gran Abs Auto 0.01 0.00 - 0.03 X10*3/uL [facility] Lymphocytes Absolute Auto 1.2 1.2 - 4.9 X10*3/uL [facility] Monocytes Absolute Auto 0.4 0.1 - 1.2 X10*3/uL [facility] Eosinophils Absolute Auto 0.2 0.0 - 0.4 X10*3/uL [facility] Basophils Absolute Auto 0.0 0.0 - 0.2 X10*3/uL [facility] NRBC Abs Auto 0.000 0.0 - 0.012 X10*3/uL [facility] 03/03/2025 5:47 AM EDT 03/03/2025 5:50 AM EDT us Generic External Data Provider LAB BLOOD ORDERAB LES Final Result [facility] [address] [place] [phone] documented in this encounter Visit Diagnoses Not on filedocumented in this encounter
--- OUTSIDE RECORDS SUMMARY | 2025-03-04 02:20 | XMS_ITS | Clinical Summary ---
Author Organization Electronic [facility] Address [address] [facility] [address] [place] [address] Care Team Providers Care Child Welfare Manager Name Role Phone Unavailable Primary Care [...] Patient presented with altered mental status from [facility] where he appeared more lethargic than [...] Encounters Date Type Department Care Team Description 03/03/2025 Orders Only GENERIC EXTERNAL DATA DEPARTMENT Provider, Generic External Data 02/26/2025 Orders Only GENERIC EXTERNAL DATA DEPARTMENT Provider, Generic External Data 02/21/2025 Orders Only GENERIC EXTERNAL DATA DEPARTMENT Provider, Generic External Data 02/21/2025 Patient Outreach [address] [address] Santosh Daley MD Care Coordination (C3/CM Outreach) 02/19/2025 Patient Outreach [facility] [address] [place] [address] Missy Milner RN 02/13/2025 Patient Outreach [address] [address] Misti Murry MD Care Coordination (Outreach) 02/11/2025 Orders Only [facility] External Provider, [facility] 02/10/2025 Orders Only GENERIC EXTERNAL DATA DEPARTMENT Provider, Generic External Data 02/08/2025 Orders Only GENERIC EXTERNAL DATA DEPARTMENT Provider, Generic External Data 02/07/2025 Orders Only GENERIC EXTERNAL DATA DEPARTMENT Provider, Generic External Data 02/07/2025 Patient Outreach [address] [address] Misti Murry MD Care Coordination (C3/CM Outreach) 02/06/2025 Orders Only GENERIC EXTERNAL DATA DEPARTMENT Provider, Generic External Data 02/05/2025 Patient Outreach [address] [address] Santosh Daley MD Care Coordination (C3/CM Chart Review) 02/05/2025 Patient Outreach [facility] [address] [place] [address] Missy Milner RN Care Coordination (C3CM chart review) 02/05/2025 Patient Outreach [facility] [address] [facility] [place] [address] Santosh Daley MD 01/31/2025 Orders Only GENERIC EXTERNAL DATA DEPARTMENT Provider, Generic External Data 01/30/2025 Orders Only GENERIC CTC DEPARTMENT [facility] 01/24/2025 Patient Outreach [facility] [address] [place] [address] Santosh Daley MD Care Coordination (Outreach) 01/24/2025 Population Health Risk Score [facility] Department [address] [place] [phone] Provider, Population Health Generic 01/14/2025 Patient Outreach [facility] [address] [place] [address] Santosh Daley MD Care Coordination (Outreach) 01/06/2025 Patient Outreach [facility] [address] [place] [address] Santosh Daley MD Care Coordination (Outreach) 12/26/2024 Patient Outreach [facility] [address] [place] [address] Santosh Daley MD Care Coordination (Outreach) from Last 3 Months Immunizations Name Administration Dates Next Due [employer] Global SARS-CoV-2 Vaccination 04/28/2021 Pfizer Covid-19 Vaccine 12+ [...] Upcoming Encounters Date Type Department Care Team ([facility] st Contact Info) Description 05/02/2025 10:00 AM EDT Office Visit [facility] [address] [place] [address] Misti Murry MD [address] [place] [address] Health Maintenance Due Date Last Done Comments [...] 1 VIEW Routine 03/03/2025 8:10 AM EDT B TYPE NATRIURETIC PEPTIDE (BNP) Routine 03/03/2025 5:47 AM EDT APTT Routine 03/03/2025 5:47 AM EDT PROTHROMBIN TIME-INR Routine 03/03/2025 5:47 AM EDT ETHANOL Routine 03/03/2025 5:47 AM EDT MAGNESIUM Routine 03/03/2025 5:47 AM EDT COMPREHENSIVE METABOLIC PANEL Routine 03/03/2025 5:47 AM EDT CBC WITH AUTO DIFFERENTIAL Routine 03/03/2025 5:47 AM EDT ETHANOL Routine 02/26/2025 10:26 PM EDT COMPREHENSIVE [...] EDT from Last 3 Months Results * XR Chest 1 View (03/03/2025 8:10 AM EDT) Only the most recent of2 resultswithin the time period is included. Anatomical Region Laterality Modality Chest Radiographic Lamar ging 03/03/2025 8:10 AM EDT Narrative 03/03/2025 8:12 AM EDT ? [facility] ?[address] ?[place] [address] ?XRay Report ? Signed ? Patient: Charbel Delgado ?MR#: [id number] ? : 1970 ?Acct:[id number] ? Age/Sex: 55 / M ?ADM Date: 03/03/25 ? Loc: HO.ED ? Attending Dr: ? Ordering Physician: Jesus Manuel Chinchilla MD ?? Date of Service: 03/03/25 ?? Procedure(s): XR chest 1V ?? Accession Number(s): [id number] ? cc: [facility]; Jesus Manuel Chinchilla MD ? CLINICAL HISTORY: [...] DD/ 0810 ? TD/TT: 03/03/25 0810 ? [facility]: ? Procedure Note Donotuseinterpreter, Image - 03/03/2025 [place] [address] XRay Report Signed Patient: Isaias Delgado#: [id number] : 1970Acct:[id number] Age/Sex: 55 / MADM Date: 03/03/25 Loc: HO.ED Attending Dr: Ordering Physician: Jesus Manuel Chinchilla MD Date of Service: 03/03/25 Procedure(s): XR chest 1V Accession Number(s): [id number] cc: [facility]; Jesus Manuel Chinchilla MD CLINICAL HISTORY: sob [...] 03/03/25 0811 DD/ 0810 TD/TT: 03/03/25 0810 [facility]: us [facility] External Provider IMG XR PROCEDURES Edited Result - Final * Ethanol (03/03/2025 5:47 AM EDT) Only the most recent of8 resultswithin the time period is included. ETHANOL (MG/DL) IN SER/PLAS 207 mg/dL [facility] Comment:Serum/plasma ethanol results are to be used formedical/treatment purposes only. 03/03/2025 5:47 AM EDT 03/03/2025 5:50 AM EDT us Generic External Data Provider LAB BLOOD ORDERAB LES Final Result [facility] [address] [place] [address] [phone] * (ABNORMAL) CBC auto differential (03/03/2025 5:47 AM EDT) Only the most recent of10 resultswithin the time period is included. White Blood Count 3.6(L) 4.8 - 10.8 X10*3/uL [facility] Red Blood Count 2.86(L) 4.60 - 5.80 X10*6/uL [facility] Hemoglobin 8.2(L) 14.0 - 18.0 g/dl [facility] Hematocrit 26.0(L) 42.0 - 52.0 % [facility] Mean Corpuscular Volume 90.9 80.0 - 98.0 fL [facility] Mean Corpuscular Hemoglobin 28.7 27.0 - 33.0 pg [facility] Mean Corpuscular HGB Conc 31.5 31.0 - 36.0 g/dl [facility] Red Cell Distribution Width 14.7 11.0 - 16.0 % [facility] Platelet Count 54(L) 160 - 400 X10*3/uL [facility] Mean Platelet Volume 10.6 9.4 - 12.4 fL [facility] Neutrophils Percent Auto 50.9 45 - 73 % [facility] Imm Gran Pct Auto 0.3 0.0 - 0.4 % [facility] Lymphocytes Percent Auto 33.0 20 - 40 % [facility] Monocytes Percent Auto 10.3 2 - 11 % [facility] Eosinophils Percent Auto 4.7(H) 0 - 4 % [facility] Basophils Percent Auto 0.8 0 - 2 % [facility] NRBC Pct Auto 0.0 0.0 - 0.2 /100WBC [facility] Neutrophils Absolute Auto 1.8(L) 2.0 - 8.3 x10*3/uL [facility] Imm Gran Abs Auto 0.01 0.00 - 0.03 X10*3/uL [facility] Lymphocytes Absolute Auto 1.2 1.2 - 4.9 X10*3/uL [facility] Monocytes Absolute Auto 0.4 0.1 - 1.2 X10*3/uL [facility] Eosinophils Absolute Auto 0.2 0.0 - 0.4 X10*3/uL [facility] Basophils Absolute Auto 0.0 0.0 - 0.2 X10*3/uL [facility] NRBC Abs Auto 0.000 0.0 - 0.012 X10*3/uL [facility] 03/03/2025 5:47 AM EDT 03/03/2025 5:50 AM EDT us Generic External Data Provider LAB BLOOD ORDERAB LES Final Result Performing Organization Address City/[facility]/ZIP Co de Phone Number [facility] [address] [place] [phone] * (ABNORMAL) Partial Thromboplastin Time, Activated (APTT) (03/03/2025 5:47 AM EDT) Partial Thromboplastin Time 38.1(H) 26.0 - 36.8 SEC [facility] Comment:For information rega rding the monitoring of direct thrombininhibitors, please refer to Pharmacy. 03/03/2025 5:47 AM EDT 03/03/2025 5:50 AM EDT us Generic External Data Provider LAB BLOOD ORDERAB LES Final Result Performing Organization Address [facility]/ZIP Co de Phone Number [facility] [address] [place] [phone] * (ABNORMAL) Prothrombin Time-INR (03/03/2025 5:47 AM EDT) Only the most recent of3 resultswithin the time period is included. Prothrombin Time 16.3(H) 10.9 - 12.4 SEC [facility] INTERNATIONAL NORM RATIO 1.4(H) 0.9 - 1.1 [facility] Comment:INTERNATIONAL NORMAL IZED RATIO (INR) [...] ORDERAB LES Final Result Performing Organization Address [facility]/ZIP Co de Phone Number [facility] [address] [place] [phone] * B Type Natriuretic Peptide (BNP) (03/03/2025 5:47 AM EDT) Only the most recent of2 resultswithin the time period is included. Pathologist [facility] B Type Natriuretic Peptide 25 <100 pg/mL [facility] 03/03/2025 5:47 AM EDT 03/03/2025 9:22 AM EDT Generic External Data Provider LAB BLOOD ORDERAB LES Final Result Performing Organization Address City/[facility]/ZIP Co de Phone Number [facility] [address] [place] [phone] * Magnesium (03/03/2025 5:47 AM EDT) Only the most recent of3 resultswithin the time period is included. Pathologist [facility] Magnesium 1.6 1.6 - 2.6 mg/dL [facility] 03/03/2025 5:47 AM EDT 03/03/2025 5:50 AM EDT us Generic External Data Provider LAB BLOOD ORDERAB LES Final Result [facility] [address] [place] [phone] * (ABNORMAL) Comprehensive Metabolic Panel (03/03/2025 5:47 AM EDT) Only the most recent of7 resultswithin the time period is included. Sodium 137 135 - 145 mmol/L [facility] Potassium 3.7 3.3 - 5.1 mmol/L [facility] Chloride 104 96 - 108 mmol/L [facility] Carbon Dioxide 21(L) 22 - 29 mmol/L [facility] Anion Gap 16 12 - 20 [facility] Urea Nitrogen (BUN) 20(H) 9 - 16 mg/dL [facility] Creatinine, Serum 1.05 0.5 - 1.4 mg/dL [facility] Creatinine Clr Calc Pharmacy 59.1 [facility] Comment:eGFR (calculated fro m the MDRD study equation) and eCrCl(calculated from the Cockcroft-Gault equation) are based ondifferent parameters and may not yield comparable results.If eCrCl result is absurd, please check patient'sheight/weight. Estimated Glomerular Filt Rate >60 [facility] Comment:Chronic Kidney Disea se: Estimated GFR < 60 mL/min/1.06i5Mlyrjk Kidney Disease: Estimated GFR < 15 mL/min/1.73m2 Glucose 91 60 - 115 mg/dL [facility] Calcium 8.5 8.4 - 10.2 mg/dL [facility] Bilirubin, Total 0.3 0.0 - 1.0 mg/dL [facility] Aspartate Amino Transferase 34 5 - 37 U/L [facility] Alanine Aminotransferase 6 0 - 40 U/L [facility] Total Protein 7.3 6.5 - 8.0 g/dL [facility] Albumin Level 3.4(L) 3.5 - 5.0 g/dL [facility] Alkaline Phosphatase 107 39 - 117 U/L [facility] 03/03/2025 5:47 AM EDT 03/03/2025 5:50 AM EDT Generic External Data Provider LAB BLOOD ORDERAB LES Final Result Performing Organization Address [facility] de Phone Number [facility] [address] [place] [phone] * Acetaminophen level (02/26/2025 8:24 AM EDT) Pathologist [facility] Acetaminophen LAB <3 <30 mcg/mL [facility] 02/26/2025 8:24 AM EDT 02/26/2025 10:28 PM EDT Generic External Data Provider LAB BLOOD ORDERAB LES Final Result Performing Organization Address [facility] de Phone Number [facility] [address] [place] [phone] * (ABNORMAL) Salicylate (02/26/2025 8:24 AM EDT) Pathologist [facility] Salicylate <5.0(L) 15 - 30 mg/dL [facility] 02/26/2025 8:24 AM EDT 02/26/2025 10:28 PM EDT Generic External Data Provider LAB BLOOD ORDERAB LES Final Result Performing Organization Address [facility] de Phone Number [facility] [address] [place] [phone] * (ABNORMAL) Drug Monitoring, Panel 1, Screen, Urine (02/21/2025 8:07 PM EDT) Only the most recent of2 resultswithin the time period is included. Opiate Screen Urine Not Detected Not Detect [facility] Comment:Opiate cut-off is 30 0 ng/mL.Positive results are unconfirmed and should not be used fornon-medical purposes. Barbiturates, Urine POSITIVE(A) Not Detect [facility] Comment:Barbiturate cut-off is 200 ng/mL.Positive results are unconfirmed and should not be used fornon-medical purposes. Phencyclidine Screen Urine Not Detected Not Detect [facility] Comment:Phencyclidine cut-of f is 25 ng/mL.Positive results are unconfirmed and should not be used fornon-medical purposes. Amphetamine Screen Urine Not Detected Not Detect [facility] Comment:Amphetamine cut-off is 1000 ng/mL.Positive results are unconfirmed and should not be used fornon-medical purposes. Benzodiazepines Screen Urine Not Detected Not Detect [facility] Comment:Benzodiazepine cut-o ff is 200 ng/mL.Positive results are unconfirmed and should not be used fornon-medical purposes. Cocaine Screen Urine Not Detected Not Detect [facility] Comment:Cocaine cut-off is 3 00 ng/mL.Positive results are unconfirmed and should not be used fornon-medical purposes. Cannabinoid Screen Urine Not Detected Not Detect [facility] Comment:Cannabinoid cut-off is 50 ng/mL.Positive results are unconfirmed and should not be used fornon-medical purposes. Methadone Screen, Urine Not Detected Not Detect ng/mL [facility] Comment:Methadone cut-off is 300 ng/mL.Positive results are unconfirmed and should not be used fornon-medical purposes. FENTANYL URINE Not Detected Not Detect [facility] Comment:Fentanyl cut-off is 1 ng/mL.Positive results are unconfirmed and should not be used fornon-medical purposes. Oxycodone Urine Screen Not Detected Not Detect ng/mL [facility] Comment:Oxycodone cut-off is 100 ng/mL.Positive results are unconfirmed and should not be used fornon-medical purposes. Buprenorphine Screen Not Detected Not Detect ng/mL [facility] Comment:Buprenorphine cut-of f is 5 ng/mL.Positive results are unconfirmed and should not be used fornon-medical purposes. 02/21/2025 8:07 PM EDT 02/21/2025 8:10 PM EDT Generic External Data Provider LAB URINE ORDERAB LES Final Result Performing Organization Address [facility]/ZIP Co de Phone Number [facility] [address] [place] [phone] * Hepatic Function Panel (02/21/2025 8:07 PM EDT) Only the most recent of3 resultswithin the time period is included. Bilirubin, Total 0.3 0.0 - 1.0 mg/dL [facility] Bilirubin, Direct 0.2 0.0 - 0.5 mg/dL [facility] Aspartate Amino Transferase 33 5 - 37 U/L [facility] Alanine Aminotransferase 10 0 - 40 U/L [facility] Total Protein 7.4 6.5 - 8.0 g/dL [facility] Albumin Level 3.5 3.5 - 5.0 g/dL [facility] Alkaline Phosphatase 104 39 - 117 U/L [facility] 02/21/2025 8:07 PM EDT 02/21/2025 8:10 PM EDT Generic External Data Provider LAB BLOOD ORDERAB LES Final Result Performing Organization Address [facility] de Phone Number [facility] [address] [place] [phone] * (ABNORMAL) Basic Metabolic Panel (02/21/2025 8:07 PM EDT) Only the most recent of3 resultswithin the time period is included. Sodium 142 135 - 145 mmol/L [facility] Potassium 4.3 3.3 - 5.1 mmol/L [facility] Chloride 118(H) 96 - 108 mmol/L [facility] Carbon Dioxide 17(L) 22 - 29 mmol/L [facility] Anion Gap 11(L) 12 - 20 [facility] Urea Nitrogen (BUN) 17(H) 9 - 16 mg/dL [facility] Creatinine, Serum 0.75 0.5 - 1.4 mg/dL [facility] Creatinine Clr Calc Pharmacy 84.6 [facility] Comment:eGFR (calculated fro m the MDRD study equation) and eCrCl(calculated from the Cockcroft-Gault equation) are based ondifferent parameters and may not yield comparable results.If eCrCl result is absurd, please check patient'sheight/weight. Estimated Glomerular Filt Rate >60 [facility] Comment:Chronic Kidney Disea se: Estimated GFR < 60 mL/min/1.53w7Ktghoi Kidney Disease: Estimated GFR < 15 mL/min/1.73m2 Glucose 88 60 - 115 mg/dL [facility] Calcium 8.5 8.4 - 10.2 mg/dL [facility] 02/21/2025 8:07 PM EDT 02/21/2025 8:10 PM EDT us Generic External Data Provider LAB BLOOD ORDERAB LES Final Result [facility] [address] [place] [phone] * (ABNORMAL) VENOUS BLOOD GAS (02/08/2025 6:41 PM EDT) Only the most recent of2 resultswithin the time period is included. VBG pH 7.45(H) 7.32 - 7.43 [facility] Comment:METER #: [id number] additional_comment: Cb nsl VBG PCO2 31 mmHg [facility] Comment:METER #: [id number] additional_comment: Cb nsl VBG PO2 43 mmHg [facility] Comment:METER #: [id number] additional_comment: Cb nsl VBG Base Excess -1.0 mmol/L [facility] Comment:METER #: [id number] additional_comment: Cb nsl VBG HCO3 22 22 - 26 mmol/L [facility] Comment:METER #: [id number] additional_comment: Cb nsl O2 Sat, Demetrio 66.0 % [facility] Comment:METER #: [id number] additional_comment: Cb nsl 02/08/2025 6:41 PM EDT 02/08/2025 6:44 PM EDT us Generic External Data Provider LAB BLOOD ORDERAB LES Final Result Performing Organization Address [facility] de Phone Number [facility] [address] [place] [phone] * (ABNORMAL) Lactic Acid (02/08/2025 6:30 PM EDT) Lactic Acid 2.9(HH) 0.5 - 2.0 mmol/L [facility] Comment:Critical value for t est(s): LACTIC Results called to gildardo back by: PRACHI Person calling: JENNIE Date: 02/08/25Time: 8 02/08/2025 6:30 PM EDT 02/08/2025 6:37 PM EDT Generic External Data Provider LAB BLOOD ORDERAB LES Final Result Performing Organization Address [facility] de Phone Number [facility] [address] [place] [phone] * CTA Chest PE Protocal (02/08/2025 4:12 AM EDT) Anatomical Region Laterality Modality Body, Chest Computed Tomogra phy 02/08/2025 4:12 AM EDT Narrative 02/08/2025 4:15 AM EDT ? [facility] ?[address] ?[place] [address] ? CT Scan Report ? Signed ? Patient: Delgado,Charbel ?MR#: [id number] ? : 1970 ?Acct:[id number] ? Age/Sex: 55 / M ?ADM Date: 03/28/25 ? Loc: HO.ED ? Attending Dr: ? Ordering Physician: Alexandria Sweeney MD ?? Date of Service: 02/08/25 ?? Procedure(s): CT angio chest PE protocol ?? Accession Number(s): [id number] ? cc: [facility]; Alexandria Sweeney MD ? Report Number: ?? [id number]: Total DLP = ??260.00 mGy-cm ? CLINICAL [...] ?02/08/25 0413 ? DD/ 0412 ? TD/TT: 02/08/252 ? [facility]: ? Procedure Note Renato Winter - 02/08/[address] [address] Scan Report Signed Patient: Isaias Delgado#: [id number] : 1970Acct:[id number] Age/Sex: 55 / MADM Date: 02/07/25 Loc: HO.ED Attending Dr: Ordering Physician: Alexandria Sweeney MD Date of Service: 02/08/25 Procedure(s): CT angio chest PE protocol Accession Number(s): [id number] cc: [facility]; Alexandria Sweeney MD Report Number: [id number]: Total DLP = 260.00 mGy-cm CLINICAL HISTORY: [...] by Randal Mendoza MD in OV> 02/08/25 041 DD/ 1 TD/TT: 02/08/25411 [facility]: [facility] External Provider IMG CT PROCEDURES Edited Result - Final * CT Head w/o Contrast (02/08/2025 4:05 AM EDT) Anatomical Region Laterality Modality Head, Neck Computed Tomogra phy 02/08/2025 4:05 AM EDT Narrative 02/08/2025 4:07 AM EDT ? [place] [facility] ?[address] ?[place] [address] ? CT Scan Report ? Signed ? Patient: Delgado,Charbel ?MR#: [id number] ? : 1970 ?Acct:[id number] ? Age/Sex: 55 / M ?ADM Date: 02/07/25 ? Loc: HO.ED ? Attending Dr: ? Ordering Physician: Alexandria Sweeney MD ?? Date of Service: 02/08/25 ?? Procedure(s): CT head/brain wo IV con ?? Accession Number(s): [id number] ? cc: [facility]; Alexandria Sweeney MD ? Report Number: ?? [id number]: Total DLP = ??618.00 mGy-cm ? CLINICAL [...] DD/ 0405 ? TD/TT: 02/08/25 0405 ? [facility]: ? Procedure Note Renato Winter - 02/08/[address] [address] [address] Scan Report Signed Patient: Isaias Delgado#: [id number] : 1970Acct:[id number] Age/Sex: 55 / MADM Date: 02/07/25 Loc: HO.ED Attending Dr: Ordering Physician: Alexandria Sweeney MD Date of Service: 02/08/25 Procedure(s): CT head/brain wo IV con Accession Number(s): [id number] cc: [facility]; Alexandria Sweeney MD Report Number: [id number]: Total DLP = 618.00 mGy-cm CLINICAL HISTORY: [...] in OV> 02/08/25405 DD/ 4 TD/TT: 02/08/25404 [facility]: [facility] External Provider IMG CT PROCEDURES Edited Result - Final * High Sensitivity Troponin I (02/08/2025 1:52 AM EDT) TROPONIN I HIGH SENSITIVITY <2.7 <3.5 - 35.0 ng/L [facility] Comment:The Connolly high sens itivity Troponin-I results should beused in conjunction with other diagnostic information suchas ECG, clinical observations and information, and patientsymptoms to aid in the diagnosis of [place]. 02/08/2025 1:52 AM EDT 02/08/2025 1:55 AM EDT Generic External Data Provider LAB BLOOD ORDERAB LES Final Result [facility] [address] [place] [phone] * SARS-CoV-2 RNA, Influenza A/B, and RSV RNA, Ql NAAT (02/08/2025 1:52 AM EDT) Influenza A PCR NEGATIVE Negative [facility] Influenza B PCR NEGATIVE Negative [facility] Resp Syncy Virus RNA Qual PCR NEGATIVE Negative [facility] SARS COV2 PCR NEGATIVE Negative [facility] Comment:All test results mus t be [...] use by authorized laboratories.Testing performed on the [employer] GeneXpert utilizingreal-time RT-PCR.All SARS CoV2 and positive influenza A/B results arereported to [facility]. 02/08/2025 1:52 AM EDT 02/08/2025 1:55 AM EDT us Generic External Data Provider LAB MICROBIOLOGY - GENERAL ORDERABLES Final Result Performing Organization Address City/[facility]/ZIP Co de Phone Number [facility] [address] [place] [phone] * (ABNORMAL) Ammonia, Plasma (02/08/2025 1:52 AM EDT) Only the most recent of2 resultswithin the time period is included. Ammonia (P) 65(H) 13 - 55 umol/L [facility] 02/08/2025 1:52 AM EDT 02/08/2025 2:03 AM EDT Generic External Data Provider LAB BLOOD ORDERAB LES Final Result Performing Organization Address [facility]/ZIP Co de Phone Number [facility] [address] [place] [phone] * Lipase (02/06/2025 12:39 AM EDT) Only the most recent of3 resultswithin the time period is included. Lipase 24 8 - 78 U/L [facility] 02/06/2025 12:3 9 AM EDT 02/06/2025 12:45 AM EDT us Generic External Data Provider LAB BLOOD ORDERAB LES Final Result [facility] [address] [place] [phone] from Last [address] [place] [address] STANDARD HSN PARTIAL
--- OUTSIDE RECORDS SUMMARY | 2025-03-04 02:20 | XMS_ITS ---
Author Organization [employer] [facility] Address [address] [facility] 7 [place] [address] Care Team Providers Care Distributor Cleaner Name Role Phone Unavailable Primary Care Provider Unavailabl e CHW Complex Status:Outreach In Progress (Enrolling) Start date:02/05/2025 Enrollment reason:ADT Feed Overview ED- Pt went to [facility] ED on 02/04/25. Case Team Name Relationship Phone Kiki Mims (Responsible Staff) Continued Care and Services Coordination
--- OUTSIDE RECORDS SUMMARY | 2025-03-04 02:20 | XMS_ITS | Encounter Summary ---
Author Organization [facility] Address [address] [facility] 7t [place] [address] Care Team Providers Care Wellness Consultant Name Role Phone Unavailable Primary Care Provider Unavailabl e Encounter Details Date Type Department Care Team (Late st Contact Info) Description 02/26/2025 Orders Only GENERIC EXTERNAL DATA [...] Office Visit [facility] [address] [place] [address] Misti Murry MD [address] [place] [address] documented as of this encounter Procedures Procedure Name Priority Date/Time Associated Diagnosis Comments ETHANOL Routine 02/26/2025 10:26 PM EDT CBC WITH AUTO DIFFERENTIAL Routine 02/26/2025 10:26 PM EDT COMPREHENSIVE METABOLIC PANEL Routine 02/26/2025 10:26 PM EDT ACETAMINOPHEN LEVEL Routine 02/26/2025 8 :24 AM EDT SALICYLATE Routine 02/26/2025 8:24 AM EDT documented in this encounter Results * (ABNORMAL) Ethanol (02/26/2025 10:26 PM EDT) ETHANOL (MG/DL) IN SER/PLAS 403(HH) mg/dL [facility] Comment:Serum/plasma ethanol results are to be used formedical/treatment purposes only. 02/26/2025 10:2 6 PM EDT 02/26/2025 10:28 PM EDT us Generic External Data Provider LAB BLOOD ORDERAB LES Final Result [facility] [address] [place] [phone] * (ABNORMAL) Comprehensive Metabolic Panel (02/26/2025 10:26 PM EDT) Sodium 142 135 - 145 mmol/L [facility] Potassium 3.7 3.3 - 5.1 mmol/L [facility] Chloride 115(H) 96 - 108 mmol/L [facility] Carbon Dioxide 17(L) 22 - 29 mmol/L [facility] Anion Gap 14 12 - 20 [facility] Urea Nitrogen (BUN) 10 9 - 16 mg/dL [facility] Creatinine, Serum 0.77 0.5 - 1.4 mg/dL [facility] Creatinine Clr Calc Pharmacy 130.7 [facility] Comment:eGFR (calculated fro m the MDRD study equation) and eCrCl(calculated from the Cockcroft-Gault equation) are based ondifferent parameters and may not yield comparable results.If eCrCl result is absurd, please check patient'sheight/weight. Estimated Glomerular Filt Rate >60 [facility] Comment:Chronic Kidney Disea se: Estimated GFR < 60 mL/min/1.87x3Wamqdw Kidney Disease: Estimated GFR < 15 mL/min/1.73m2 Glucose 108 60 - 115 mg/dL [facility] Calcium 8.6 8.4 - 10.2 mg/dL [facility] Bilirubin, Total 0.4 0.0 - 1.0 mg/dL [facility] Aspartate Amino Transferase 36 5 - 37 U/L [facility] Alanine Aminotransferase 9 0 - 40 U/L [facility] Total Protein 8.0 6.5 - 8.0 g/dL [facility] Albumin Level 3.8 3.5 - 5.0 g/dL [facility] Alkaline Phosphatase 135(H) 39 - 117 U/L [facility] 02/26/2025 10:2 6 PM EDT 02/26/2025 10:28 PM EDT us Generic External Data Provider LAB BLOOD ORDERAB LES Final Result [facility] [address] [place] [phone] * (ABNORMAL) CBC auto differential (02/26/2025 10:26 PM EDT) White Blood Count 3.1(L) 4.8 - 10.8 X10*3/uL [facility] Red Blood Count 2.85(L) 4.60 - 5.80 X10*6/uL [facility] Hemoglobin 8.3(L) 14.0 - 18.0 g/dl [facility] Hematocrit 26.6(L) 42.0 - 52.0 % [facility] Mean Corpuscular Volume 93.3 80.0 - 98.0 fL [facility] Mean Corpuscular Hemoglobin 29.1 27.0 - 33.0 pg [facility] Mean Corpuscular HGB Conc 31.2 31.0 - 36.0 g/dl [facility] Red Cell Distribution Width 14.6 11.0 - 16.0 % [facility] Platelet Count 63(L) 160 - 400 X10*3/uL [facility] Mean Platelet Volume 9.8 9.4 - 12.4 fL [facility] Neutrophils Percent Auto 56.6 45 - 73 % [facility] Imm Gran Pct Auto 0.3 0.0 - 0.4 % [facility] Lymphocytes Percent Auto 28.1 20 - 40 % [facility] Monocytes Percent Auto 8.5 2 - 11 % [facility] Eosinophils Percent Auto 5.2(H) 0 - 4 % [facility] Basophils Percent Auto 1.3 0 - 2 % [facility] NRBC Pct Auto 0.0 0.0 - 0.2 /100WBC [facility] Neutrophils Absolute Auto 1.7(L) 2.0 - 8.3 x10*3/uL [facility] Imm Gran Abs Auto 0.01 0.00 - 0.03 X10*3/uL [facility] Lymphocytes Absolute Auto 0.9(L) 1.2 - 4.9 X10*3/uL [facility] Monocytes Absolute Auto 0.3 0.1 - 1.2 X10*3/uL [facility] Eosinophils Absolute Auto 0.2 0.0 - 0.4 X10*3/uL [facility] Basophils Absolute Auto 0.0 0.0 - 0.2 X10*3/uL [facility] NRBC Abs Auto 0.000 0.0 - 0.012 X10*3/uL [facility] 02/26/2025 10:2 6 PM EDT 02/26/2025 10:28 PM EDT us Generic External Data Provider LAB BLOOD ORDERAB LES Final Result Performing Organization Address City/[facility]/ZIP Co de Phone Number [facility] [address] [place] [phone] * Acetaminophen level (02/26/2025 8:24 AM EDT) Acetaminophen LAB <3 <30 mcg/mL [facility] 02/26/2025 8:24 AM EDT 02/26/2025 10:28 PM EDT us Generic External Data Provider LAB BLOOD ORDERAB LES Final Result Performing Organization Address City/[facility]/ZIP Co de Phone Number [facility] [address] [place] [phone] * (ABNORMAL) Salicylate (02/26/2025 8:24 AM EDT) Salicylate <5.0(L) 15 - 30 mg/dL [facility] 02/26/2025 8:24 AM EDT 02/26/2025 10:28 PM EDT us Generic External Data Provider LAB BLOOD ORDERAB LES Final Result [facility] [address] [place] [phone] documented in this encounter Visit Diagnoses Not on filedocumented in this encounter
--- NOTE | 2025-03-04 03:00 | PC.NURSE ---
O2 sat noted to be at 88% RA while pt sleeping. 2L applied via NC with O2 improvement to 93%.
[2025-03-04 06:36] VITALS: BP 107/57; PULSE 81; RESP 16; TEMP 36.7; O2SAT 95
--- NOTE | 2025-03-04 08:20 | PC.NURSE ---
Assumed care of pt at 0700. Pt resting quietly on stretcher in 8h, pt baseline needs O2 d/t desats while sleeping. Pt moved to ED 9, discharge planner aware. Placed on 2L O2 NC d/t 86%-88% on RA- maintaining O2 sat high 90s on 2L O2 NC, placed on continuous O2 monitor. A/ox3, respirations even and unlabored, no increased wob/sob noted, denies CP/SOB. Vitals taken and updated in worklist. Pt up ambulating in hallway with this RN- steady gait, slow when moving. Diet order placed and kitchen called for breakfast tray. Pt offered snacks/fluids while waiting for tray. Call harris within reach, all needs met at this time.
[2025-03-04 08:25] VITALS: BP 106/53; PULSE 78; RESP 18; TEMP 36.7; O2SAT 88
--- NOTE | 2025-03-04 09:08 | MHC.RECOVRN ---
T/W received message pt requesting detox bed search. Upon chart review it was noted that pt being D/C. No consult provided.
== END 2025-03-04 09:20 ==
PROVIDERS: Emergency Provider Emergency Medicine
DX: M25.512 Pain in left shoulder (principal); M79.605 Pain in left leg; M54.50 Low back pain, unspecified; F10.129 Alcohol abuse with intoxication, unspecified; M25.572 Pain in left ankle and joints of left foot; Y90.9 Presence of alcohol in blood, level not specified; Z87.891 Personal history of nicotine dependence
CPT/HCPCS: 73030; 73600; 99283; 99284

== ENCOUNTER → 2025-03-04 02:14 | Outpatient (BNV) | payer MEDICAID, SELFPAY | PROVIDERS: Emergency Provider Emergency Medicine; Visit Provider Radiology Diagnostic Radiology | DX: M25.512 Pain in left shoulder (principal); M25.572 Pain in left ankle and joints of left foot | CPT/HCPCS: 73030; 73600 ==

== ENCOUNTER 2025-04-19 05:17 | Emergency (ER) | payer MEDICAID, SELFPAY ==
--- NOTE | ~2025-04-19 | XR_ITS ---
CLINICAL HISTORY: SOB 2 views chest Comparison: 03/03/2025 Findings: Cardiac and mediastinal contours are normal. Mild interstitial prominence with scattered peribronchial thickening. No focal consolidation. No effusion. No pneumothorax. No acute osseous finding. Impression: Mild interstitial prominence with scattered peribronchial thickening. No focal consolidation. This document has been electronically signed by: Anurag Singletary MD on 04/19/2025 09:35:14
[2025-04-19 05:23] VITALS: BP 99/39; PULSE 66; RESP 16; TEMP 36.9; O2SAT 92; BMI 21.7
[2025-04-19 05:28] VITALS: BP 99/39; PULSE 66; RESP 16; TEMP 36.9; O2SAT 92
--- NOTE | 2025-04-19 05:33 | PC.NURSE ---
assumed care of pt from EMS. Pt called EMS due to lower L extremity pain, lower back pain and L shoulder pain. Pt was ambulatory off EMS stretcher into bed. endorses ETOH use today. Respirations even and unlabored.
[2025-04-19 06:23] VITALS: BP 92/44; PULSE 68; RESP 16; TEMP 36.3; O2SAT 92
--- NOTE | 2025-04-19 08:52 | ED_ITS ---
HPI - General Adult General Chief complaint: Extremity Problem Stated complaint: BACK PAIN Time Seen by Provider: 04/19/25 07:56 Source: patient and RN notes reviewed Mode of arrival: ambulatory Limitations: no limitations History of Present Illness ED Provider: Brooke Oro PA-C HPI narrative: This is a 55-year-old male, with a past medical history of EtOH abuse, GERD, CHF, who presents emergency department from the police station burning back pain. On my evaluation, he reports that he would like to be discharged as who would like to drink alcohol. He states that he is in no current pain. He denies any chest pain, shortness for breath, abdominal pain, nausea, vomiting or diarrhea. Denies any back pain shoulder pain or left ankle pain despite with the triage note had reported. He states that he would like to be discharged. He does report that he drinks alcohol daily, states that he typically drinks half a pt of hard alcohol with multiple beers per day, states that he drank prior to his arrival. He is speaking in full sentences under no acute distress. MD complaint: Wellness visit Relieving factors: none Exacerbating factors: none Associated symptoms: denies other symptoms Related Data Home Medications ?Medication ?Instructions ?Recorded ?Confirmed lactulose 10 gram/15 mL oral 30 ml PO TID 02/01/25 03/03/25 solution omeprazole 40 mg capsule,delayed 40 mg PO DAILY@0630 02/01/25 03/03/25 release Previous Rx's ?Medication ?Instructions ?Recorded acetaminophen 325 mg tablet 975 mg (3 x 325 mg) PO Q6H PRN 12/17/24 Pain, Mild 1-3,Fever,Headache #30 tabs magnesium oxide 400 mg (241.3 mg 400 mg PO DAILY #30 tabs 12/17/24 magnesium) tablet sodium chloride 0.65 % nasal spray 1 spray intranasal Q1H PRN Dryness 12/17/24 aerosol (Deep Sea Nasal) #44 mL sucralfate 1 gram tablet (Carafate) 1 g PO BID #60 tabs 12/17/24 folic acid 1 mg tablet 1 mg PO DAILY #90 tabs 02/04/25 thiamine mononitrate (vit B1) 100 100 mg PO DAILY #90 tabs 02/04/ mg tablet spironolactone 25 mg tablet 25 mg PO DAILY #90 tabs 02/13/25 Allergies Allergy/AdvReac Type Severity Reaction Status Date / Time No Known Allergies Allergy Verified 04/19/25 05:28 [No Known Allergies*] Review of Systems Review of Systems: Yes all other systems are reviewed and are negative Constitutional: Constitutional: Reports as per [facility] Past Medical History Medical History CHF (congestive heart failure) Alcohol use disorder Alcohol abuse Acute hypoxemic respiratory failure Anemia Pneumonia Alcohol withdrawal syndrome Pancytopenia Alcohol abuse Thrombocytopenia Esophageal varices Acute on chronic anemia Alcoholic liver disease Aspiration pneumonia Thrombocytopenia Malnutrition CHF (congestive heart failure) Anemia Hypomagnesemia Cirrhosis Thrombocytopenia Acute on chronic anemia CHF (congestive heart failure) Anemia Alcohol abuse Surgical History No history of previous surgery Social History Social History Household Members: None Household Members Other:: homeless Housing: Homeless Housing Other:: Homeless senior living Do you presently have visiting nurse or other home services: No Unable to assess alcohol history related to: Refusing to respond Alcohol intake: current Alcohol intake frequency: 3 or more drinks per day Alcohol type: beer and hard liquor Comment: 1 assist to bathroom Patient Tobacco Use Status: Former Tobacco user Tobacco use type: Cigarette Second Hand Smoke Exposure: No Advance Directives Date on File: 07/13/23 service: No Physical Exam ED Vital Signs: Vital Signs - 24 hr 04/19/25 05:23 04/19/25 05:28 04/19/25 06:23 Temperature 98.4 F 98.4 F 97.4 F Pulse Rate 66 66 68 Respiratory Rate 16 16 16 Blood Pressure 99/39 L 99/39 L 92/44 L Pulse Oximetry 92 92 92 Oxygen Delivery Method Room Air Room Air Room Air 04/19/25 11:13 Temperature 0 F L Pulse Rate 0 L Respiratory Rate 0 L Blood Pressure 0/0 L Pulse Oximetry Oxygen Delivery Method BMI result Body Mass Index 21.7 Const General: cooperative, comfortable and no acute distress Orientation/consciousness: patient oriented x3 Limitations: no limitations HENMT Head: Yes normal to inspection, Yes normocephalic and Yes atraumatic Ears: hearing grossly normal bilaterally General nose exam: Normal external nose present Face and sinus: Yes normal facial exam Mouth: Normal oral and palatal mucosa present, oropharynx normal and moist mucous membranes Throat: Yes posterior oropharynx normal Eyes General: appearance normal, both eyes and all related structures Eyelids: Yes eyelids normal Conjunctivae: conjunctivae normal Sclerae: sclerae normal Pupils: Equal, round and reactive pupils present EOM: EOMs intact bilaterally Neck Neck: Yes normal visual inspection, Yes full ROM and Yes no lymphadenopathy Lymphatic: no lymphadenopathy noted Chest Chest palpation & inspection: normal inspection of the chest Resp Effort & Inspection: normal respiratory effort and able to speak in complete sentences Auscultation: clear to auscultation bilaterally, no crackles, no rales, no rhonchi and no wheezes Cardio Rate: regular rate Rhythm: regular rhythm Heart sounds: S1 normal heart sound present and S2 normal heart sound present GI Other: Abdomen is soft, nontender, nondistended Inspection: Yes normal to inspection Skin General skin exam: no rashes or lesions noted Trauma: no lacerations or abrasions Wounds: no wounds Neuro General: patient oriented x3 and moves all extremities Cranial nerves: Yes CN's II-XII intact bilaterally and Yes Equal, round and reactive pupils present Cognition (Neuro): normal cognition Gait exam (Neuro): Normal gait present Motor exam (neuro): 5/5 motor strength present throughout Extrem General: Yes normal to inspection Right upper extremity: normal to inspection Left upper extremity: normal to inspection Right lower extremity: normal to inspection Left lower extremity: normal to inspection Medications Administered Discontinued Medications Generic Name Dose Route Start Last Admin Trade Name Freq PRN Reason Stop Dose Admin Prednisone 40 mg 04/19/25 11:02 04/19/25 11:15 Prednisone 20 Mg Tablet PO 04/19/25 11:03 Not Given ONCE ONE Medical Decision Making Medical Decision Making [facility] Narrative: This is a 55-year-old male, with a history of alcohol use disorder, who presents emergency department from police station with complaints of low back pain. On my assessment, he states that he has no current complaints, and was brought h ere, he is unsure why he is here. During my evaluation, he did have episodes of hypoxia, down to 88% on room air. I reviewed his medical chart, he has a history of heart failure, and has history of similar presentations. I discussed with patient that I would like to further investigate this as it is concerning that he is not on home oxygen, and has episodes of hypoxia. He is speaking in full sentences under no acute distress, he is neurologically intact, and clinically sober. Patient reports that he is eager to be discharged from the emergency room. He is ambulatory in the emergency department. An x-ray was performed revealing interstitial prominence with scattered peribronchial thickening, no focal consolidation. EKG normal sinus rhythm with no ST- elevation or depression. Had my attending physician quickly assess patient, he is at 90%, speaking full sentences, he is clinically sober, eager for discharge. I discussed at length with patient that in view was to walk out of the emergency room, he will be signing against medical advice. He understands that if he does sign against medical advice, softeners at risk for severe life- threatening illness including but not limited to . He is aware of these consequences, and still would like to be discharge. Patient left against medical advice. Differential Diagnosis Differential Diagnoses: The differential diagnosis associated with the presentation includes CHF, COPD exacerbation, pneumonia, respiratory failure Admission/Observation Consideration of admission/observation: Escalation of care including admission/observation considered Patient requiring further diagnostic laboratory studies however patient would like to be discharged, signed AMA. Independent Interpretation I performed an independent interpretation of an: EKG Interpretation: Normal sinus rhythm at a ventricular rate of 71 beats per minute, no STEMI. Radiology Impression Discussion of test interpretation with radiology: I have reviewed the radiologist's reading. Radiologist Impression: indings: Cardiac and mediastinal contours are normal. Mild interstitial prominence with scattered peribronchial thickening. No focal consolidation. No effusion. No pneumothorax. No acute osseous finding. Impression: Mild interstitial prominence with scattered peribronchial thickening. No focal consolidation. This document has been electronically signed by: Anurag Singletary MD on 04/19/2025 09:35:14 Dictated By: Anurag Singletary MD Discharge Plan Discharge Clinical Impression: Hypoxia Patient Disposition: Left Against Medical Advice Instructions: Hypoxia (ED) Additional Instructions: You were seen in the emergency department and your oxygen saturation was found to be is very low. I encouraged you to stay to be further worked up however you refused. You were signing against medical advice at this time. Please return if you develop any new or worsening symptoms including but not limited to chest pain or shortness of breath Prescriptions: No Action sucralfate [Carafate] 1 gram tablet 1 g PO BID Qty: 60 0RF acetaminophen 325 mg Tablet 975 mg PO Q6H PRN (Reason: Pain, Mild 1-3,Fever,Headache) Qty: 30 0RF magnesium oxide 400 mg (241.3 mg magnesium) Tablet 400 mg PO DAILY Qty: 30 0RF Deep Sea Nasal 0.65 % Aerosol,[place] 1 spray intranasal Q1H PRN (Reason: Dryness) Qty: 44 0RF spironolactone 25 mg tablet 25 mg PO DAILY Qty: 90 0RF lactulose 10 gram/15 mL solution 30 ml PO TID omeprazole 40 mg capsule,delayed release(DR/EC) 40 mg PO DAILY@0630 folic acid 1 mg Tablet 1 mg PO DAILY Qty: 90 0RF thiamine mononitrate (vit B1) 100 mg Tablet 100 mg PO DAILY Qty: 90 0RF Stand Alone Forms: Against Medical Advice Interventions: ED Discharge Assessment Last Done: 04/19/25 11:13 Discharge Date/Time: 04/19/25 11:14 Print Language: Bangladeshi
--- NOTE | 2025-04-19 09:02 | ECG_ITS ---
Test Reason : BACK PAIN Blood Pressure : */* mmHG Vent. Rate : 71 BPM Atrial Rate : 71 BPM P-R Int : 156 ms QRS Dur : 84 ms QT Int : 436 ms P-R-T Axes : 58 7 8 degrees QTcB Int : 473 ms Normal sinus rhythm Normal ECG When compared with ECG of 15-Feb-2025 09:09, No significant changes seen Referred By: Brooke Oro Electronically Signed By: EDITA HALE
--- NOTE | 2025-04-19 11:11 | PC.NURSE ---
Pt up oob ambulating around unit with steady gait. Wanting to leave [facility] made aware.
[2025-04-19 11:13] VITALS: BP 0/0; PULSE 0; RESP 0; TEMP -17.7; TEMP 0
== END 2025-04-19 11:14 | disposition left against medical advice (07) ==
PROVIDERS: Emergency Provider Emergency Medicine
DX: R09.02 Hypoxemia (principal); M54.9 Dorsalgia, unspecified
CPT/HCPCS: 71046; 93005; 99283; 99284

== ENCOUNTER → 2025-04-19 09:02 | Outpatient (BNV) | payer MEDICAID, SELFPAY | PROVIDERS: Emergency Provider Emergency Medicine; Visit Provider Radiology Vascular & Interventional Radiology | DX: R06.02 Shortness of breath (principal) | CPT/HCPCS: 71046 ==

== ENCOUNTER → 2025-04-19 09:02 | Outpatient (BNV) | payer MEDICAID, SELFPAY | PROVIDERS: Emergency Provider Emergency Medicine; Visit Provider Internal Medicine | DX: M54.9 Dorsalgia, unspecified (principal) | CPT/HCPCS: 93010 ==

== ENCOUNTER 2025-04-19 19:24 | Emergency (ER) | payer MEDICAID, SELFPAY ==
[2025-04-19 19:31] VITALS: BP 160/78; PULSE 90; O2SAT 92
[2025-04-19 19:38] VITALS: BP 106/46; PULSE 69; RESP 18; TEMP 36.6; O2SAT 95; BMI 21.9
--- NOTE | 2025-04-19 19:44 | PC.NURSE ---
55 yo M presents to ED BIBA for +alcohol intoxication, +hypoxic on RA (84%), placed on 2L of O2 via NC with +effect, O2 sat now WNL, otherwise stable including VS, POC glucose 122, resting comfortably on stretcher, discharged from ED this morning after similar presentation, FORREST, carmencita
[2025-04-19 19:47] LABS: Glucose, Whole Blood 122 mg/dL (60-115)
[2025-04-19 20:54] VITALS: BP 106/59; PULSE 67; RESP 14; O2SAT 97
--- NOTE | 2025-04-19 21:16 | ED_ITS ---
HPI - Alcohol General Chief Complaint: ETOH/Substance Use Stated Complaint: ETOH, LOW O2, L SHOULDER PAIN PER EMS Time Seen by Provider: 04/19/25 21:15 Source: patient Mode of arrival: EMS Limitations: no limitations History of Present Illness ED Provider: HPI narrative: Patient alcoholic been here multiple times discharge earlier today comes back drunk with no other active complain ambulatory and shouting in the ER saturating low 90s % at room air but patient is speaking full sentences no signs of head injury no recent fall Related Data Home Medications ?Medication ?Instructions ?Recorded ?Confirmed lactulose 10 gram/15 mL oral 30 ml PO TID 02/01/25 03/03/25 solution omeprazole 40 mg capsule,delayed 40 mg PO DAILY@0630 02/01/25 03/03/25 release Previous Rx's ?Medication ?Instructions ?Recorded acetaminophen 325 mg tablet 975 mg (3 x 325 mg) PO Q6H PRN 12/17/24 Pain, Mild 1-3,Fever,Headache #30 tabs magnesium oxide 400 mg (241.3 mg 400 mg PO DAILY #30 tabs 12/17/24 magnesium) tablet sodium chloride 0.65 % nasal spray 1 spray intranasal Q1H PRN Dryness 12/17/24 aerosol (Deep Sea Nasal) #44 mL sucralfate 1 gram tablet (Carafate) 1 g PO BID #60 tabs 12/17/24 folic acid 1 mg tablet 1 mg PO DAILY #90 tabs 02/04/25 thiamine mononitrate (vit B1) 100 100 mg PO DAILY #90 tabs 02/04/25 mg tablet spironolactone 25 mg tablet 25 mg PO DAILY #90 tabs 02/13/25 Allergies Allergy/AdvReac Type Severity Reaction Status Date / Time No Known Allergies Allergy Verified 04/19/25 19:39 [No Known Allergies*] Review of Systems Review of Systems: Yes all other systems are reviewed and are negative PMFSH Past Medical History Medical History CHF (congestive heart failure) Alcohol use disorder Alcohol abuse Acute hypoxemic respiratory failure Anemia Pneumonia Alcohol withdrawal syndrome Pancytopenia Alcohol abuse Thrombocytopenia Esophageal varices Acute on chronic anemia Alcoholic liver disease Aspiration pneumonia Thrombocytopenia Malnutrition CHF (congestive heart failure) Anemia Hypomagnesemia Cirrhosis Thrombocytopenia Acute on chronic anemia CHF (congestive heart failure) Anemia Alcohol abuse Surgical History No history of previous surgery Social History Social History Household Members: None Household Members Other:: homeless Housing: Homeless Housing Other:: Homeless group home Do you presently have visiting nurse or other home services: No Unable to assess alcohol history related to: Refusing to respond Alcohol intake: current Alcohol intake frequency: 3 or more drinks per day Alcohol type: beer and hard liquor Comment: 1 assist to bathroom Patient Tobacco Use Status: Former Tobacco user Tobacco use type: Cigarette Second Hand Smoke Exposure: No Advance Directives: Yes Advance Directives Date on File: 07/13/23 service: No Physical Exam ED Vital Signs: Vital Signs - 24 hr 04/19/25 19:38 04/19/25 20:54 04/19/25 21:21 Temperature 97.9 F 97.9 F Pulse Rate 69 67 67 Respiratory Rate 18 14 14 Blood Pressure 106/46 L 106/59 L 106/59 L Pulse Oximetry 95 97 97 Oxygen Delivery Method Nasal Cannula Room Air Room Air BMI result Body Mass Index 21.9 Appearance: Alert. Oriented X3. No acute distress. Intoxicated ambulatory in steady gait Eyes: No pallor or icterus ENT: Pharynx normal. Oral Mucosa moist Neck: Normal inspection. Neck supple. CVS: Normal heart rate and rhythm. Pulses normal. Respiratory: No respiratory distress. Equal air entry bilateral, no wheezing/rales/rhonchi Abdomen: Soft and nontender. Bowel sounds are present, no mass palpable, no CVA tenderness Skin: Skin warm and dry. Normal skin color. Normal skin turgor. Extremities: No lower extremity edema. No calf tenderness Neuro: Oriented X 3. No motor deficit. No sensory deficit.No cerebellar signs , cranial nerves II-XII intact Medical Decision Making Medical Decision Making MDM Narrative: Patient with frequent ED visits intoxicated comes here almost 3 4 times a week discharge just earlier today on arrival patient is ambulatory shouting will discharge patient advised follow up as outpatient with detox Lab Data Labs: Lab Results 04/19/25 Range/Units 19:43 POC Glucose 122 H (60-115) mg/dL Discharge Plan Discharge Clinical Impression: Alcoholic intoxication Patient Disposition: Home, Self-Care Instructions: Alcohol Intoxication (DC) Additional Instructions: Stop drinking alcohol Prescriptions: No Action sucralfate [Carafate] 1 gram tablet 1 g PO BID Qty: 60 0RF acetaminophen 325 mg Tablet 975 mg PO Q6H PRN (Reason: Pain, Mild 1-3,Fever,Headache) Qty: 30 0RF magnesium oxide 400 mg (241.3 mg magnesium) Tablet 400 mg PO DAILY Qty: 30 0RF Deep Sea Nasal 0.65 % Aerosol,[place] 1 spray intranasal Q1H PRN (Reason: Dryness) Qty: 44 0RF spironolactone 25 mg tablet 25 mg PO DAILY Qty: 90 0RF lactulose 10 gram/15 mL solution 30 ml PO TID omeprazole 40 mg capsule,delayed release(DR/EC) 40 mg PO DAILY@0630 folic acid 1 mg Tablet 1 mg PO DAILY Qty: 90 0RF thiamine mononitrate (vit B1) 100 mg Tablet 100 mg PO DAILY Qty: 90 0RF Interventions: ED Discharge Assessment Last Done: 04/19/25 21:21 Discharge Date/Time: 04/19/25 21:22 Print Language: Welsh
--- NOTE | 2025-04-19 21:18 | PC.NURSE ---
Pt up out of bed, yelling, cursing and making obscene hand gestures to MD Chinchilla. The pt was conversing in full/complete sentences, skin was warm and dry and he did not display any s/s of distress. Verbal de-escalation was attempted by multiple staff members but was unsuccessful. He was escorted out of department by security where he was noted to ambulate independently with a steady gait.
[2025-04-19 21:21] VITALS: BP 106/59; PULSE 67; RESP 14; TEMP 36.6; O2SAT 97
== END 2025-04-19 21:22 | disposition home or self-care (01) ==
PROVIDERS: Emergency Provider Internal Medicine
DX: F10.129 Alcohol abuse with intoxication, unspecified (principal); Y90.6 Blood alcohol level of 120-199 mg/100 ml
CPT/HCPCS: 82947; 99283

== ENCOUNTER 2025-04-21 00:57 | Emergency (ER) | payer MEDICAID, SELFPAY ==
[2025-04-21 01:04] VITALS: BP 119/62; BP 150/80; PULSE 77; PULSE 78; RESP 18; TEMP 37.1; O2SAT 92; O2SAT 94; BMI 27.5
--- NOTE | 2025-04-21 01:36 | PC.NURSE ---
pt reports he would like to leave at this time, provider aware, pt ambulatory out of ed with steady gait
[2025-04-21 01:38] VITALS: BP 119/62; PULSE 77; RESP 18; TEMP 37.1; O2SAT 92
--- NOTE | 2025-04-22 01:45 | ED_ITS ---
HPI - Alcohol General Chief Complaint: ETOH/Substance Use Stated Complaint: ETOH Time Seen by Provider: 04/21/25 01:03 Source: patient Mode of arrival: EMS Limitations: no limitations History of Present Illness ED Provider: HPI narrative: Patient alcoholic been here multiple times comes for the same does not want to go to detox just want to sleep here Related Data Home Medications ?Medication ?Instructions ?Recorded ?Confirmed lactulose 10 gram/15 mL oral 30 ml PO TID 02/01/25 03/03/25 solution omeprazole 40 mg capsule,delayed 40 mg PO DAILY@0630 02/01/25 03/03/25 release Previous Rx's ?Medication ?Instructions ?Recorded acetaminophen 325 mg tablet 975 mg (3 x 325 mg) PO Q6H PRN 12/17/24 Pain, Mild 1-3,Fever,Headache #30 tabs magnesium oxide 400 mg (241.3 mg 400 mg PO DAILY #30 tabs 12/17/24 magnesium) tablet sodium chloride 0.65 % nasal spray 1 spray intranasal Q1H PRN Dryness 12/17/24 aerosol (Deep Sea Nasal) #44 mL sucralfate 1 gram tablet (Carafate) 1 g PO BID #60 tabs 12/17/24 folic acid 1 mg tablet 1 mg PO DAILY #90 tabs 02/04/25 thiamine mononitrate (vit B1) 100 100 mg PO DAILY #90 tabs 02/04/ mg tablet spironolactone 25 mg tablet 25 mg PO DAILY #90 tabs 02/13/25 Allergies Allergy/AdvReac Type Severity Reaction Status Date / Time No Known Allergies Allergy Verified 04/21/25 19:47 [No Known Allergies*] Review of Systems Review of Systems: Yes all other systems are reviewed and are negative [facility] Past Medical History Medical History CHF (congestive heart failure) Alcohol use disorder Alcohol abuse Acute hypoxemic respiratory failure Anemia Pneumonia Alcohol withdrawal syndrome Pancytopenia Alcohol abuse Thrombocytopenia Esophageal varices Acute on chronic anemia Alcoholic liver disease Aspiration pneumonia Thrombocytopenia Malnutrition CHF (congestive heart failure) Anemia Hypomagnesemia Cirrhosis Thrombocytopenia Acute on chronic anemia CHF (congestive heart failure) Anemia Alcohol abuse Surgical History No history of previous surgery Social History Social History Household Members: None Household Members Other:: homeless Housing: Homeless Housing Other:: Homeless [facility] Do you presently have visiting nurse or other home services: No Unable to assess alcohol history related to: Refusing to respond Alcohol intake: current Alcohol intake frequency: 3 or more drinks per day Alcohol type: beer and hard liquor Comment: 1 assist to bathroom Patient Tobacco Use Status: Former Tobacco user Tobacco use type: Cigarette Second Hand Smoke Exposure: No Advance Directives: Yes Advance Directives on File: Yes Advance Directives Date on File: 07/13/23 Do you have a plan to hurt others: No Plan service: No Physical Exam ED Vital Signs: BMI result Body Mass Index 27.5 Appearance: Alert. Oriented X3. No acute distress. ETOH ambulatory Eyes: PERRLA, No Nystagmus ENT: Pharynx normal. Oral Mucosa moist atraumatic normocephalic Neck: Normal inspection. Neck supple. CVS: Normal heart rate and rhythm. Pulses normal. Respiratory: No respiratory distress. Equal air entry bilateral, no wheezing/rales/rhonchi Abdomen: Soft and nontender. Bowel sounds are present, no mass palpable, no CVA tenderness Skin: Skin warm and dry. Normal skin color. Normal skin turgor. Extremities: No lower extremity edema. No calf tenderness Neuro: Oriented X 3. No motor deficit. No sensory deficit.No cerebellar signs , cranial nerves II-XII intact Medical Decision Making Medical Decision Making MDM Narrative: Patient alcoholic with frequent ED visits will discharge patient home no medical reason patient does not want to sleep in the ER does not want to go to detox Discharge Plan Discharge Clinical Impression: Alcohol abuse Patient Disposition: Home, Self-Care Instructions: Abuse of Alcohol (DC) Additional Instructions: Stop drinking alcohol Follow up with detox Prescriptions: No Action sucralfate [Carafate] 1 gram tablet 1 g PO BID Qty: 60 0RF acetaminophen 325 mg Tablet 975 mg PO Q6H PRN (Reason: Pain, Mild 1-3,Fever,Headache) Qty: 30 0RF magnesium oxide 400 mg (241.3 mg magnesium) Tablet 400 mg PO DAILY Qty: 30 0RF Deep Sea Nasal 0.65 % Aerosol,[place] 1 spray intranasal Q1H PRN (Reason: Dryness) Qty: 44 0RF spironolactone 25 mg tablet 25 mg PO DAILY Qty: 90 0RF lactulose 10 gram/15 mL solution 30 ml PO TID omeprazole 40 mg capsule,delayed release(DR/EC) 40 mg PO DAILY@0630 folic acid 1 mg Tablet 1 mg PO DAILY Qty: 90 0RF thiamine mononitrate (vit B1) 100 mg Tablet 100 mg PO DAILY Qty: 90 0RF Interventions: ED Discharge Assessment Last Done: 04/21/25 01:38 Discharge Date/Time: 04/21/25 01:38 Print Language: Danish
== END 2025-04-21 01:38 | disposition home or self-care (01) ==
PROVIDERS: Emergency Provider Internal Medicine
DX: F10.10 Alcohol abuse, uncomplicated (principal); Y90.9 Presence of alcohol in blood, level not specified; Z71.41 Alcohol abuse counseling and surveillance of alcoholic; Z79.899 Other long term (current) drug therapy
CPT/HCPCS: 99284

== ENCOUNTER 2025-04-21 19:26 | Emergency (ER) | payer MEDICAID, SELFPAY ==
[2025-04-21 19:45] VITALS: BP 142/60; PULSE 94; RESP 19; TEMP 36.6; O2SAT 91; BMI 19.4
--- NOTE | 2025-04-21 21:04 | ED.GENADULT ---
HPI - General Adult General Chief complaint: Extremity Injury, Lower Stated complaint: ankle pain & left shoulder pain Related Data Home Medications ?Medication ?Instructions ?Recorded ?Confirmed lactulose 10 gram/15 mL oral 30 ml PO TID 02/01/25 03/03/25 solution omeprazole 40 mg capsule,delayed 40 mg PO DAILY@0630 02/01/25 03/03/25 release Previous Rx's ?Medication ?Instructions ?Recorded acetaminophen 325 mg tablet 975 mg (3 x 325 mg) PO Q6H PRN 12/17/24 Pain, Mild 1-3,Fever,Headache #30 tabs magnesium oxide 400 mg (241.3 mg 400 mg PO DAILY #30 tabs 12/17/24 magnesium) tablet sodium chloride 0.65 % nasal spray 1 spray intranasal Q1H PRN Dryness 12/17/24 aerosol (Deep Sea Nasal) #44 mL sucralfate 1 gram tablet (Carafate) 1 g PO BID #60 tabs 12/17/24 folic acid 1 mg tablet 1 mg PO DAILY #90 tabs 02/04/25 thiamine mononitrate (vit B1) 100 100 mg PO DAILY #90 tabs 02/04/ mg tablet spironolactone 25 mg tablet 25 mg PO DAILY #90 tabs 02/13/25 Allergies Allergy/AdvReac Type Severity Reaction Status Date / Time No Known Allergies (No Known Allergy Verified 05/05/25 14:03 Allergies*) [facility] Past Medical History Medical History CHF (congestive heart failure) Alcohol use disorder Alcohol abuse Acute hypoxemic respiratory failure Anemia Pneumonia Alcohol withdrawal syndrome Pancytopenia Alcohol abuse Thrombocytopenia Esophageal varices Acute on chronic anemia Alcoholic liver disease Aspiration pneumonia Thrombocytopenia Malnutrition CHF (congestive heart failure) Anemia Hypomagnesemia Cirrhosis Thrombocytopenia Acute on chronic anemia CHF (congestive heart failure) Anemia Alcohol abuse Surgical History No history of previous surgery Social History Social History Household Members: None Household Members Other:: homeless Housing: Homeless Housing Other:: Homeless prison Do you presently have visiting nurse or other home services: No Unable to assess alcohol history related to: Refusing to respond Alcohol intake: current Alcohol intake frequency: 3 or more drinks per day Alcohol type: beer and hard liquor Comment: 1 assist to bathroom Patient Tobacco Use Status: Former Tobacco user Tobacco use type: Cigarette Second Hand Smoke Exposure: No Advance Directives: Yes Advance Directives on File: Yes Advance Directives Date on File: 07/13/23 service: No Physical Exam ED Vital Signs: Vital Signs - 24 hr 04/21/25 19:45 Temperature 98 F Pulse Rate 94 Respiratory Rate 19 Blood Pressure 142/60 H Pulse Oximetry 91 L Oxygen Delivery Method Room Air BMI result Body Mass Index 19.4 Course Course Course Narrative: RME, this is a rapid medical exam performed by Chai Nation please refer to primary provider for complete H&P- 55 year old male presents for evaluation of left ankle pain. He has a known chronic fracture of that ankle. Discharge Plan Discharge Clinical Impression: Acute ankle pain Patient Disposition: Left W/O Completing Treatment Prescriptions: No Action sucralfate [Carafate] 1 gram tablet 1 g PO BID Qty: 60 0RF acetaminophen 325 mg Tablet 975 mg PO Q6H PRN (Reason: Pain, Mild 1-3,Fever,Headache) Qty: 30 0RF magnesium oxide 400 mg (241.3 mg magnesium) Tablet 400 mg PO DAILY Qty: 30 0RF Deep Sea Nasal 0.65 % Aerosol,[place] 1 spray intranasal Q1H PRN (Reason: Dryness) Qty: 44 0RF spironolactone 25 mg tablet 25 mg PO DAILY Qty: 90 0RF lactulose 10 gram/15 mL solution 30 ml PO TID omeprazole 40 mg capsule,delayed release(DR/EC) 40 mg PO DAILY@0630 folic acid 1 mg Tablet 1 mg PO DAILY Qty: 90 0RF thiamine mononitrate (vit B1) 100 mg Tablet 100 mg PO DAILY Qty: 90 0RF Discharge Date/Time: 04/22/25 01:34
== END 2025-04-22 01:34 | disposition left against medical advice (07) ==
PROVIDERS: Emergency Provider Emergency Medicine
DX: M25.572 Pain in left ankle and joints of left foot (principal); M25.512 Pain in left shoulder
CPT/HCPCS: 99281

== ENCOUNTER 2025-04-26 12:08 | Emergency (ER) | payer MEDICAID, SELFPAY ==
[2025-04-26 12:18] VITALS: BP 100/60; BP 102/60; PULSE 16; PULSE 63; RESP 18; TEMP 36.8; O2SAT 93; O2SAT 96; BMI 20.3
--- NOTE | 2025-04-26 12:21 | ED_ITS ---
HPI - Alcohol General Chief Complaint: General Medical Stated Complaint: FOOT PAIN/SWELLING,ETOH USE PER EMS Time Seen by Provider: 04/26/25 12:15 Source: patient, EMS and old records reviewed Mode of arrival: EMS Limitations: no limitations History of Present Illness ED Provider: ISAIAS VIVAR narrative: 55 yo male with PMH of ETOH use disorder still drinking despite recent S35, anemia, GERD, CHF, cirrhosis, HTN, leg swelling who presents with c/o I am drinking and my legs are swollen. This is a chronic issue for him. He states I aint' going to no detox. He then states he isn't going to take his medications. I asked why he is here, it is raining out. No trauma reported. MD complaint: alcohol intoxication Last drink: Just prior to admission Chronic alcohol use: Yes Previous visits for alcohol intoxication: Yes Recent trauma: No Associated symptoms: other (leg swelling) Treatments prior to arrival: none Related Data Home Medications ?Medication ?Instructions ?Recorded ?Confirmed lactulose 10 gram/15 mL oral 30 ml PO TID 02/01/25 03/03/25 solution omeprazole 40 mg capsule,delayed 40 mg PO DAILY@0630 02/01/25 03/03/25 release Previous Rx's ?Medication ?Instructions ?Recorded acetaminophen 325 mg tablet 975 mg (3 x 325 mg) PO Q6H PRN 12/17/24 Pain, Mild 1-3,Fever,Headache #30 tabs magnesium oxide 400 mg (241.3 mg 400 mg PO DAILY #30 tabs 12/17/24 magnesium) tablet sodium chloride 0.65 % nasal spray 1 spray intranasal Q1H PRN Dryness 12/17/24 aerosol (Deep Sea Nasal) #44 mL sucralfate 1 gram tablet (Carafate) 1 g PO BID #60 tabs 12/17/24 folic acid 1 mg tablet 1 mg PO DAILY #90 tabs 02/04/25 thiamine mononitrate (vit B1) 100 100 mg PO DAILY #90 tabs 02/04/ mg tablet spironolactone 25 mg tablet 25 mg PO DAILY #90 tabs 02/13/25 Allergies Allergy/AdvReac Type Severity Reaction Status Date / Time No Known Allergies Allergy Verified 04/26/25 12:20 [No Known Allergies*] Review of Systems Review of Systems: Constitutional : No Fever, No Chills ENT/Mouth : No Ear Pain, No Hoarseness, No sore throat Eyes: No Eye Pain, No Swelling, No Redness, No Foreign Body Cardiovascular : No Chest Pain, No SOB Respiratory : No Cough, No Dyspnea Gastrointestinal : No Nausea, No Vomiting, No Diarrhea, No abdominal Pain Genitourinary : No Dysuria, No Hematuria Musculoskeletal : positive joint pain, No Myalgias, pos leg swelling Skin : No Skin lacerations, No rash Neuro : No Weakness, No Numbness, No Loss of Consciousness, No Dizziness, No Headache Psych : No Anxiety/Panic, No Depression Heme/Lymph: no easy bruising, no Lymphadenopathy Endocrine : No Polyuria, No Polydipsia All other systems reviewed and are negative [facility] Past Medical History Attestation statement: The following information was validated with the patient. Source: old records reviewed Medical History CHF (congestive heart failure) Alcohol use disorder Alcohol abuse Acute hypoxemic respiratory failure Anemia Pneumonia Alcohol withdrawal syndrome Pancytopenia Alcohol abuse Thrombocytopenia Esophageal varices Acute on chronic anemia Alcoholic liver disease Aspiration pneumonia Thrombocytopenia Malnutrition CHF (congestive heart failure) Anemia Hypomagnesemia Cirrhosis Thrombocytopenia Acute on chronic anemia CHF (congestive heart failure) Anemia Alcohol abuse Surgical History No history of previous surgery Social History Social History Household Members: None Household Members Other:: homeless Housing: Homeless Housing Other:: Homeless [facility] Do you presently have visiting nurse or other home services: No Unable to assess alcohol history related to: Refusing to respond Alcohol intake: current Alcohol intake frequency: 3 or more drinks per day Alcohol type: beer and hard liquor Comment: 1 assist to bathroom Patient Tobacco Use Status: Former Tobacco user Tobacco use type: Cigarette Smoked in Last 30 Days: No Second Hand Smoke Exposure: No Use of substances other than those prescribed or required for medical reasons: No Advance Directives: Yes Advance Directives on File: Yes Advance Directives Date on File: 07/13/23 Do you have a plan to hurt others: No Plan service: No Physical Exam ED Vital Signs: Vital Signs - 24 hr 04/26/25 12:18 04/26/25 16:00 Temperature 98.3 F 98.1 F Pulse Rate 63 66 Respiratory Rate 18 18 Blood Pressure 102/60 106/66 Pulse Oximetry 93 93 Oxygen Delivery Method Room Air Room Air BMI result Body Mass Index 20.3 Appearance: Alert. Oriented X3. No acute distress. ETOH odor slurred speech Eyes: Pupils equal, round and reactive to light. ENT: Pharynx normal. atraumatic Neck: Normal inspection. Neck supple. CVS: Normal heart rate and rhythm. Pulses normal. Respiratory: No respiratory distress. Breath sounds normal. Abdomen: Soft and nontender. Skin: Skin warm and dry. Normal skin color. Normal skin turgor. Extremities: symmetric pitting leg edema around ankles and lower shins, no signs of cellulitis Neuro: Oriented X 3. No motor deficit. No sensory deficit. CN2-12 intact Medical Decision Making Medical Decision Making MDM Narrative: 55 yo male with PMH of ETOH use disorder still drinking despite recent S35, anemia, GERD, CHF, cirrhosis, HTN, leg swelling now here with chronic leg swelling but he doesn't want to stop drinking and he doesn't want to take his medications. I just saw him and sectioned 35 him it has not been 6 months and he has same complaints. He has no hypoxia now no signs of trauma and no leg infection. His appearance is baseline. I do not see the utility in checking his labs as he refuses to take medications anyways. 18;15 patient ambulatory in his steady for the charge patient home advised to stop drinking patient has refused detox or any help Differential Diagnosis Differential Diagnoses: The differential diagnosis associated with the presentation includes noncompliance, CHF, liver disease Admission/Observation Consideration of admission/observation: Escalation of care including admission/observation considered his leg swelling is chronic, he doesn't want to stop drinking or go to detox, he states he doesn't want to take his medications will observe until clinically sober - physician observation started at 1238pm Independent Historian Clinical information obtained from an independent historian. History obtained from or confirmed by: EMS External Record Review External record reviewed: Inpatient record and Outpatient record Discharge Plan Discharge Clinical Impression: Alcohol use disorder, severe, dependence Patient Disposition: Home, Self-Care Instructions: Alcohol Use Disorder (ED) Additional Instructions: Alcohol use disorder You were seen in the Emergency Department today for treatment of alcohol use disorder.? You may have been given medications to help with your withdrawal symptoms.? Please do not drink alcohol with them. This is very dangerous and can cause respiratory depression or other adverse reactions depending on the medication. If you would like to cut down or stop your alcohol use please consider calling our outpatient Addiction Treatment office:? [facility] (M-F [id number]) [address] ? You have also been given a list of treatment providers in the area that can assist as well.? If you experience seizures, vomiting blood, black stools, falls, severe headache, chest pain, fevers, trouble breathing, hallucinations or any other concerns you need to call 911 or seek immediate care. Please stay hydrated. Prescriptions: No Action sucralfate [Carafate] 1 gram tablet 1 g PO BID Qty: 60 0RF acetaminophen 325 mg Tablet 975 mg PO Q6H PRN (Reason: Pain, Mild 1-3,Fever,Headache) Qty: 30 0RF magnesium oxide 400 mg (241.3 mg magnesium) Tablet 400 mg PO DAILY Qty: 30 0RF Deep Sea Nasal 0.65 % Aerosol,[place] 1 spray intranasal Q1H PRN (Reason: Dryness) Qty: 44 0RF spironolactone 25 mg tablet 25 mg PO DAILY Qty: 90 0RF lactulose 10 gram/15 mL solution 30 ml PO TID omeprazole 40 mg capsule,delayed release(DR/EC) 40 mg PO DAILY@0630 folic acid 1 mg Tablet 1 mg PO DAILY Qty: 90 0RF thiamine mononitrate (vit B1) 100 mg Tablet 100 mg PO DAILY Qty: 90 0RF Print Language: Maltese
[2025-04-26 16:00] VITALS: BP 106/66; PULSE 66; RESP 18; TEMP 36.7; O2SAT 93
[2025-04-26 19:52] VITALS: BP 106/66; PULSE 66; RESP 18; TEMP 36.7; O2SAT 93
== END 2025-04-26 20:00 | disposition home or self-care (01) ==
PROVIDERS: Emergency Provider Emergency Medicine
DX: F10.20 Alcohol dependence, uncomplicated (principal); Y90.9 Presence of alcohol in blood, level not specified; Z87.891 Personal history of nicotine dependence
CPT/HCPCS: 99284

== ENCOUNTER 2025-04-27 20:24 | Emergency (ER) | payer MEDICAID, SELFPAY ==
[2025-04-27 20:32] VITALS: BMI 22.9
--- OUTSIDE RECORDS SUMMARY | 2025-04-27 20:51 | XMS_ITS | Encounter Summary ---
Author Organization [employer] Address [address] [facility] [address] [place] [address] Care Team Providers Care Snubber Name Role Phone Misti Murry MD Primary Care Provider + Missy Milner RN Unavailable [phone] Conor Vidal Unavailable Reason for Visit * Reason Comments Care Coordination C3CM/CHW Conor blackburn, Initial outreach attempt_lvm Encounter Details Date Type Department Care Team (Latest Contact Info) Description 04/23/2025 Patient Outreach [facility] [address] [place] [address] Misti Murry MD [address] [place] [address] Care Coordination (C3/AMY Vidal, Initial outreach attempt_lvm ) Social History Tobacco Use Types Packs/Day Years Used Date Smoking Tobacco: Never Assessed Sex and Gender Information Value Date Recorded Sex Assigned at Male 11/23/2022 11:29 AM EST Legal Sex Male 11:26 AM EST Gender Identity Male 11/23/2022 11:29 AM EST Sexual Orientation Straight 01/11/2024 8: 14 AM EST documented as of this encounter Progress Notes * Conor Vidal - 04/23/2025 10:31 AM EDT AMY Vidal, placed outbound call to patient to introduce [facility]. No answer at this time. CHW LVM introducing herself from [facility] CM Department with [facility], department and direct contact number requesting call back. Will re-attempt to contact within 2 days. and address not confirmed. AMY Vidal [place] [facility] [place]. CHW was connect to patient's Associate Justice , W requested call back at [phone]. Patient's name, and confirmed. CHW to follow up within the next 2 days. documented in this encounter Plan of Treatment Upcoming Encounters Date Type Department Care Team (Late st Contact Info) Description 05/02/2025 10:00 AM EDT Office Visit [facility] [address] [place] [id number] Misti Murry MD [address] [place] [address] [phone] documented as of this encounter Visit Diagnoses Not on filedocumented in this encounter Care Teams Snubber Relationship Specialty Start Date End Date Misti Murry MD [address] [place] [address] [phone] PCP - General Internal Medicine 03/04/25 Missy Milner RN [address] [place] [id number] Registered Nurse Family Medicine 04/23/25 Conor Vidal 04/23/25 documented as of this encounter
[2025-04-27 20:54] VITALS: BP 102/58; PULSE 83; RESP 16; TEMP 36.8; O2SAT 92
--- NOTE | 2025-04-28 03:39 | ED.GENADULT ---
HPI - General Adult General Chief complaint: ETOH/Substance Use Stated complaint: feet pain/ swelling, etoh Time Seen by Provider: 04/27/25 21:25 Source: patient and EMS Limitations: other (Intoxication) History of Present Illness ED Provider: Jose R Brannon PA-C HPI narrative: 55-year-old male with a history of alcohol use disorder, housing and security, failure to thrive, who is well known to our emergency department being a high utilizer of resources, presents intoxicated. Patient states his feet hurt from walking. Related Data Home Medications ?Medication ?Instructions ?Recorded ?Confirmed lactulose 10 gram/15 mL oral 30 ml PO TID 02/01/25 03/03/25 solution omeprazole 40 mg capsule,delayed 40 mg PO DAILY@0630 02/01/25 03/03/25 release Previous Rx's ?Medication ?Instructions ?Recorded acetaminophen 325 mg tablet 975 mg (3 x 325 mg) PO Q6H PRN 12/17/24 Pain, Mild 1-3,Fever,Headache #30 tabs magnesium oxide 400 mg (241.3 mg 400 mg PO DAILY #30 tabs 12/17/24 magnesium) tablet sodium chloride 0.65 % nasal spray 1 spray intranasal Q1H PRN Dryness 12/17/24 aerosol (Deep Sea Nasal) #44 mL sucralfate 1 gram tablet (Carafate) 1 g PO BID #60 tabs 12/17/24 folic acid 1 mg tablet 1 mg PO DAILY #90 tabs 02/04/25 thiamine mononitrate (vit B1) 100 100 mg PO DAILY #90 tabs 02/04/25 mg tablet spironolactone 25 mg tablet 25 mg PO DAILY #90 tabs 02/13/25 Allergies Allergy/AdvReac Type Severity Reaction Status Date / Time No Known Allergies Allergy Verified 04/27/25 20:33 [No Known Allergies*] Review of Systems Review of Systems: Unable to obtain secondary to intoxication Yes all other systems are reviewed and are negative PMFSH Past Medical History Attestation statement: The following information was validated with the patient. Medical History CHF (congestive heart failure) Alcohol use disorder Alcohol abuse Acute hypoxemic respiratory failure Anemia Pneumonia Alcohol withdrawal syndrome Pancytopenia Alcohol abuse Thrombocytopenia Esophageal varices Acute on chronic anemia Alcoholic liver disease Aspiration pneumonia Thrombocytopenia Malnutrition CHF (congestive heart failure) Anemia Hypomagnesemia Cirrhosis Thrombocytopenia Acute on chronic anemia CHF (congestive heart failure) Anemia Alcohol abuse Surgical History No history of previous surgery Social History Social History Household Members: None Household Members Other:: homeless Housing: Homeless Housing Other:: Homeless senior living Do you presently have visiting nurse or other home services: No Unable to assess alcohol history related to: Refusing to respond Alcohol intake: current Alcohol intake frequency: 3 or more drinks per day Alcohol type: beer and hard liquor Comment: 1 assist to bathroom Patient Tobacco Use Status: Former Tobacco user Tobacco use type: Cigarette Second Hand Smoke Exposure: No Advance Directives: Yes Advance Directives on File: Yes Advance Directives Date on File: 07/13/23 service: No Physical Exam ED Vital Signs: Vital Signs - 24 hr 04/27/25 20:54 04/28/25 03:56 04/28/25 06:27 Temperature 98.3 F 99.2 F 98.9 F Pulse Rate 83 77 81 Respiratory Rate 16 16 16 Blood Pressure 102/58 L 96/41 L 111/48 L Pulse Oximetry 92 93 92 Oxygen Delivery Method Room Air Room Air Room Air 04/28/25 06:38 Temperature 98.9 F Pulse Rate 81 Respiratory Rate 16 Blood Pressure 111/48 L Pulse Oximetry 92 Oxygen Delivery Method Room Air BMI result Body Mass Index 22.9 Const Other: Sleeping, disheveled, appears older than stated age, easily woken with verbal stimuli Orientation/consciousness: patient oriented x3 HENAK Other: Alcohol halitosis Resp Effort & Inspection: normal respiratory effort Cardio Other: Normal peripheral perfusion, bilateral pitting pedal edema Skin Other: Warm dry no rash Neuro Other: Stumbling gait General: patient oriented x3, no focal motor deficits and CN's II-XI intact bilaterally Psych Other: Somewhat cooperative, intoxicated Course Reevaluation(s) Reevaluation #1: I assumed care of this patient at 04:00 at change of shift. The patient is a homeless alcoholic with innumerable emergency room visits. He presented as he usually does. He was allowed to sleep until the morning when he was awake enough for discharge. ---Dr. Ferguson Time: 06:55 Medical Decision Making Medical Decision Making MDM Narrative: 55-year-old male with a history of alcohol use disorder, housing and security, failure to thrive, who is well known to our emergency department being a high utilizer of resources, presents intoxicated. Patient states his feet hurt from walking. [place]olin: Housing and security, alcohol use disorder History: Per patient and EMS I have considered the following differential diagnoses: Alcohol intoxication, malingering, secondary gain, Plan: Sadly, the patient is seen in the emergency department on almost a daily basis. He frequently complains of foot pain. He will be monitored for his safety until he is clinically sober, he typically we will leave on his own after he is fed. Discharge Plan Discharge Clinical Impression: Alcoholic intoxication Patient Disposition: Home, Self-Care Instructions: Alcohol Intoxication (ED), Alcohol Use Disorder (ED) Additional Instructions: You were monitored in the emergency room overnight for your safety until you were clinically sober Prescriptions: No Action sucralfate [Carafate] 1 gram tablet 1 g PO BID Qty: 60 0RF acetaminophen 325 mg Tablet 975 mg PO Q6H PRN (Reason: Pain, Mild 1-3,Fever,Headache) Qty: 30 0RF magnesium oxide 400 mg (241.3 mg magnesium) Tablet 400 mg PO DAILY Qty: 30 0RF Deep Sea Nasal 0.65 % Aerosol,[place] 1 spray intranasal Q1H PRN (Reason: Dryness) Qty: 44 0RF spironolactone 25 mg tablet 25 mg PO DAILY Qty: 90 0RF lactulose 10 gram/15 mL solution 30 ml PO TID omeprazole 40 mg capsule,delayed release(DR/EC) 40 mg PO DAILY@0630 folic acid 1 mg Tablet 1 mg PO DAILY Qty: 90 0RF thiamine mononitrate (vit B1) 100 mg Tablet 100 mg PO DAILY Qty: 90 0RF Interventions: ED Discharge Assessment Last Done: 04/28/25 06:38 Discharge Date/Time: 04/28/25 06:40 Print Language: Greek
[2025-04-28 03:56] VITALS: BP 96/41; PULSE 77; RESP 16; TEMP 37.3; O2SAT 93
[2025-04-28 06:27] VITALS: BP 111/48; PULSE 81; RESP 16; TEMP 37.2; O2SAT 92
[2025-04-28 06:38] VITALS: BP 111/48; PULSE 81; RESP 16; TEMP 37.2; O2SAT 92
== END 2025-04-28 06:40 | disposition home or self-care (01) ==
PROVIDERS: Emergency Provider Emergency Medicine
DX: F10.120 Alcohol abuse with intoxication, uncomplicated (principal); Y90.9 Presence of alcohol in blood, level not specified; Z87.891 Personal history of nicotine dependence; Z59.00 Homelessness unspecified
CPT/HCPCS: 99283; 99284

== ENCOUNTER 2025-04-28 19:56 | Emergency (ER) | payer MEDICAID, SELFPAY ==
[2025-04-28 20:01] VITALS: BP 119/62; PULSE 87; O2SAT 93
[2025-04-28 20:07] VITALS: BP 129/68; PULSE 78; RESP 16; TEMP 36.2; O2SAT 92; BMI 19.4
[2025-04-28 20:11] VITALS: BP 129/68; PULSE 78; RESP 16; TEMP 36.2; O2SAT 92
--- OUTSIDE RECORDS SUMMARY | 2025-04-28 20:17 | XMS_ITS | Encounter Summary ---
Author Organization [employer] Address [address] [facility] [address] [place] [address] Care Team Providers Care Luster Repairer Name Role Phone Misti Murry MD Primary Care Provider + Missy Milner RN Unavailable [phone] Conor Vidal Unavailable Reason for Visit * Reason Comments Care Coordination C3CM/CHW Conor blackburn, Initial outreach attempt_lvm Encounter Details Date Type Department Care Team (Latest Contact Info) Description 04/23/2025 Patient Outreach [facility] [address] [place] [address] Misti Murry MD [address] [place] [address] Care Coordination (C3/AMY Vidal, Initial outreach attempt_lvm [...] this time. CHW LVM introducing herself from [facility] CM Department with [facility], department and direct contact number requesting call back. Will re-attempt to contact within 2 days. and address not confirmed. AMY Vidal [place] [facility] [place]. CHW was connect to patient's Needle Grinder , W requested call back at [phone]. Patient's name, and confirmed. CHW to follow up within the next 2 days. documented in this encounter Plan of Treatment Upcoming Encounters Date Type Department Care Team (Late st Contact Info) Description 05/02/2025 10:00 AM EDT Office Visit [facility] [address] [place] [phone] Misti Murry MD [address] [place] [address] [phone] documented as of this encounter Visit Diagnoses Not on filedocumented in this encounter Care Teams Luster Repairer Relationship Specialty Start Date End Date Misti Murry MD [address] [place] [address] [phone] PCP - General Internal Medicine 03/04/25 Missy Milner RN [address] [place] [phone] Registered Nurse Family Medicine 04/23/25 Conor Vidal 04/23/25 documented as of this encounter
--- NOTE | 2025-04-28 20:40 | PC.NURSE ---
pt ambulated down the feliciano independently
--- NOTE | 2025-04-28 21:33 | PC.NURSE ---
pt resting, breathing even and unlabored, O 2 remains >91%
--- NOTE | 2025-04-28 23:10 | PC.NURSE ---
Pt resting comfortably on the stretcher, RR even unlabored, oxygen is 95% with a HR of 80.
[2025-04-28 23:38] VITALS: BP 103/58; PULSE 82; RESP 16; TEMP 37.3; O2SAT 94
--- NOTE | 2025-04-29 03:52 | ED_ITS ---
HPI - General Adult General Chief complaint: General Medical Stated complaint: l ankle pain,l knee pain,etoh Time Seen by Provider: 04/28/25 20:28 Source: patient Limitations: other (Intoxication) History of Present Illness ED Provider: Trudy Brannon PA-C HPI narrative: 55-year-old male with a history of alcohol use disorder, housing and security, failure to thrive, who is well known to our emergency department being a high utilizer of resources, presents intoxicated. Patient states his feet hurt from walking. Related Data Home Medications ?Medication ?Instructions ?Recorded ?Confirmed lactulose 10 gram/15 mL oral 30 ml PO TID 02/01/25 03/03/25 solution omeprazole 40 mg capsule,delayed 40 mg PO DAILY@0630 02/01/25 03/03/25 release Previous Rx's ?Medication ?Instructions ?Recorded acetaminophen 325 mg tablet 975 mg (3 x 325 mg) PO Q6H PRN 12/17/24 Pain, Mild 1-3,Fever,Headache #30 tabs magnesium oxide 400 mg (241.3 mg 400 mg PO DAILY #30 tabs 12/17/24 magnesium) tablet sodium chloride 0.65 % nasal spray 1 spray intranasal Q1H PRN Dryness 12/17/24 aerosol (Deep Sea Nasal) #44 mL sucralfate 1 gram tablet (Carafate) 1 g PO BID #60 tabs 12/17/24 folic acid 1 mg tablet 1 mg PO DAILY #90 tabs 02/04/25 thiamine mononitrate (vit B1) 100 100 mg PO DAILY #90 tabs 02/04/25 mg tablet spironolactone 25 mg tablet 25 mg PO DAILY #90 tabs 02/13/25 Allergies Allergy/AdvReac Type Severity Reaction Status Date / Time No Known Allergies Allergy Verified 04/28/25 20:11 [No Known Allergies*] Review of Systems Review of Systems: Unable to obtain Yes all other systems are reviewed and are negative Cardiovascular: Cardiovascular: Denies chest pain PMFSH Past Medical History Attestation statement: The following information was validated with the patient. Medical History CHF (congestive heart failure) Alcohol use disorder Alcohol abuse Acute hypoxemic respiratory failure Anemia Pneumonia Alcohol withdrawal syndrome Pancytopenia Alcohol abuse Thrombocytopenia Esophageal varices Acute on chronic anemia Alcoholic liver disease Aspiration pneumonia Thrombocytopenia Malnutrition CHF (congestive heart failure) Anemia Hypomagnesemia Cirrhosis Thrombocytopenia Acute on chronic anemia CHF (congestive heart failure) Anemia Alcohol abuse Surgical History No history of previous surgery Social History Social History Household Members: None Household Members Other:: homeless Housing: Homeless Housing Other:: Homeless assisted Do you presently have visiting nurse or other home services: No Unable to assess alcohol history related to: Refusing to respond Alcohol intake: current Alcohol intake frequency: 3 or more drinks per day Alcohol type: beer and hard liquor Comment: 1 assist to bathroom Patient Tobacco Use Status: Former Tobacco user Tobacco use type: Cigarette Second Hand Smoke Exposure: No Advance Directives: Yes Advance Directives on File: Yes Advance Directives Date on File: 07/13/23 Do you have a plan to hurt others: No Plan service: No Physical Exam ED Vital Signs: Vital Signs - 24 hr 04/28/25 20:07 04/28/25 20:11 04/28/25 23:38 Temperature 97.2 F 97.2 F 99.1 F Pulse Rate 78 78 82 Respiratory Rate 16 16 16 Blood Pressure 129/68 129/68 103/58 L Pulse Oximetry 92 92 94 Oxygen Delivery Method Room Air Room Air Room Air BMI result Body Mass Index 19.4 Const Other: Awake, disheveled, Orientation/consciousness: patient oriented x3 HENMT Other: Alcohol halitosis Resp Effort & Inspection: normal respiratory effort Cardio Other: Pitting pedal edema, warm and perfusing Skin Other: Warm dry no rash Neuro Other: Unsteady gait General: patient oriented x3, no focal motor deficits and CN's II-XI intact bilaterally Psych Other: Cooperative Medical Decision Making Medical Decision Making MDM Narrative: 55-year-old male with a history of alcohol use disorder, housing and security, failure to thrive, who is well known to our emergency department being a high utilizer of resources, presents intoxicated. Patient states his feet hurt from walking. Problem: Housing and security, alcohol use disorder History: Per patient which is limited I have considered the following differential diagnoses: Malingering, secondary gain Plan: The patient was just seen here in discharge yesterday morning for same presentation, we will continue to monitor to him overnight until he is clinically sober and safe to discharge. There was no change in the patient's exam, he is ambulatory in the emergency department Discharge Plan Discharge Clinical Impression: Alcohol use disorder Patient Disposition: Home, Self-Care Instructions: Abuse of Alcohol (ED) Additional Instructions: You were monitored in the ER overnight until you were sober. Prescriptions: No Action sucralfate [Carafate] 1 gram tablet 1 g PO BID Qty: 60 0RF acetaminophen 325 mg Tablet 975 mg PO Q6H PRN (Reason: Pain, Mild 1-3,Fever,Headache) Qty: 30 0RF magnesium oxide 400 mg (241.3 mg magnesium) Tablet 400 mg PO DAILY Qty: 30 0RF Deep Sea Nasal 0.65 % Aerosol,[place] 1 spray intranasal Q1H PRN (Reason: Dryness) Qty: 44 0RF spironolactone 25 mg tablet 25 mg PO DAILY Qty: 90 0RF lactulose 10 gram/15 mL solution 30 ml PO TID omeprazole 40 mg capsule,delayed release(DR/EC) 40 mg PO DAILY@0630 folic acid 1 mg Tablet 1 mg PO DAILY Qty: 90 0RF thiamine mononitrate (vit B1) 100 mg Tablet 100 mg PO DAILY Qty: 90 0RF Print Language: Mongolian
[2025-04-29 06:22] VITALS: BP 113/55; PULSE 84; RESP 16; TEMP 37.3; O2SAT 90
[2025-04-29 06:45] VITALS: BP 113/55; PULSE 84; RESP 16; TEMP 37.3; O2SAT 90
== END 2025-04-29 06:53 | disposition home or self-care (01) ==
PROVIDERS: Emergency Provider Emergency Medicine
DX: F10.10 Alcohol abuse, uncomplicated (principal); Y90.9 Presence of alcohol in blood, level not specified; Z59.00 Homelessness unspecified
CPT/HCPCS: 99282; 99284

== ENCOUNTER 2025-04-29 10:38 | Emergency (ER) | payer MEDICAID, SELFPAY ==
--- NOTE | ~2025-04-29 | XR_ITS ---
EXAMINATION: XR FOOT, LEFT CLINICAL INFORMATION: pain COMPARISON: None available. TECHNIQUE: AP, lateral, and oblique views of the left foot. FINDINGS: There is linear calcific density projecting into the fourth webspace, probably in the medial base of the fifth digit. There is minimal cortical irregularity involving the dorsal medial base of the fourth proximal phalanx, probably chronic. Probable bipartite medial sesamoid of the first metatarsal. There is moderate joint space narrowing involving the third DIP and fourth PIP joints. Faint calcific density projects medial to the second metatarsal head, possibly vascular. There is vascular calcification in the base of the first and second metatarsals. Moderate marginal osteophyte is evident in the distal lateral There is soft tissue swelling in the mid and hindfoot. Articular surface of calcaneus. XR/XR foot LT 2V IMPRESSION: Probable bipartite medial sesamoid of the first metatarsal, correlate for focal signs symptoms to rule out fracture. Minimal cortical irregularity of the medial base of the fourth proximal phalanx is probably chronic. Correlate clinically. Electronically signed by: Elias Smith MD 04/29/2025 12:14 PM EDT
--- NOTE | ~2025-04-29 | XR_ITS ---
EXAMINATION: XR ANKLE, LEFT CLINICAL INFORMATION: pain in left ankle COMPARISON: None available. TECHNIQUE: AP, lateral, and mortise views of the left ankle. FINDINGS: There is osteopenia. No fracture, dislocation, or suspicious bone lesion. Normal bone mineralization. Normal alignment. The mortise is intact. The talar dome is normal. Joint spaces are preserved. No significant arthropathy. Mild circumferential soft tissue swelling is present. There are vascular calcifications. XR/XR ankle LT min 3V IMPRESSION: 1. No acute bony abnormalities of the left ankle. Electronically signed by: David Wang MD 04/29/2025 12:12 PM EDT
--- NOTE | ~2025-04-29 | XR_ITS ---
EXAMINATION: XR KNEE, LEFT CLINICAL INFORMATION: pain COMPARISON: None available. TECHNIQUE: Four views of the left knee. FINDINGS: Mild osteopenia. No fracture, dislocation, or suspicious bone lesion. Alignment is anatomic. Joint spaces are maintained. Small suprapatellar joint effusion suspected. There are diffuse vascular calcifications in the soft tissues. XR/XR knee LT 4V IMPRESSION: No acute bony abnormalities of the left knee. Small joint effusion suspected. Electronically signed by: David Wang MD 04/29/2025 12:15 PM EDT
--- NOTE | ~2025-04-29 | US_ITS ---
EXAMINATION: US TRIPLEX LOWER EXTREMITY, LEFT CLINICAL INFORMATION: Pain, left lower extremity COMPARISON: None available. TECHNIQUE: Color-flow triplex imaging with spectral analysis and compression Doppler were performed on the left lower extremity. FINDINGS: Respiratory variation, normal compression and augmented flow are present throughout the interrogated left common femoral vein, superficial femoral vein, profunda femoral vein, popliteal vein and midcalf peroneal and posterior tibial venous segments. There is no Gillespie's cyst. US/US venous duplex LE IMPRESSION: No acute deep venous thrombosis interrogated veins, left lower extremity. Negative for DVT. Electronically signed by: Eric Steele MD 04/29/2025 12:09 PM EDT
[2025-04-29 10:56] VITALS: BP 109/64; PULSE 68; RESP 16; TEMP 36.4; O2SAT 92; BMI 33.3
--- NOTE | 2025-04-29 11:19 | ED.LOWEXIN ---
HPI - Extremity Injury (Lower) General Chief Complaint: Extremity Injury, Lower Stated Complaint: PAIN/SWELLING L ANKLE X1 1/2 WKS,NO INJURY PER EMS Time Seen by Provider: 04/29/25 11:02 History of Present Illness HPI Narrative: Patient is a 55-year-old male presents today with having left lower extremity pain since this morning. Has a history of ETOH abuse. History of GI bleed history of alcohol withdrawal. History of esophageal varices. Patient unable to give detailed denies any trauma. Pain is worse over the ankle over the knees and calf. Unable to ambulate well. Related Data Home Medications ?Medication ?Instructions ?Recorded ?Confirmed lactulose 10 gram/15 mL oral 30 ml PO TID 02/01/25 03/03/25 solution omeprazole 40 mg capsule,delayed 40 mg PO DAILY@0630 02/01/25 03/03/25 release Previous Rx's ?Medication ?Instructions ?Recorded acetaminophen 325 mg tablet 975 mg (3 x 325 mg) PO Q6H PRN 12/17/24 Pain, Mild 1-3,Fever,Headache #30 tabs magnesium oxide 400 mg (241.3 mg 400 mg PO DAILY #30 tabs 12/17/24 magnesium) tablet sodium chloride 0.65 % nasal spray 1 spray intranasal Q1H PRN Dryness 12/17/24 aerosol (Deep Sea Nasal) #44 mL sucralfate 1 gram tablet (Carafate) 1 g PO BID #60 tabs 12/17/24 folic acid 1 mg tablet 1 mg PO DAILY #90 tabs 02/04/25 thiamine mononitrate (vit B1) 100 100 mg PO DAILY #90 tabs 02/04/25 mg tablet spironolactone 25 mg tablet 25 mg PO DAILY #90 tabs 02/13/25 Allergies Allergy/AdvReac Type Severity Reaction Status Date / Time No Known Allergies Allergy Verified 04/29/25 10:57 [No Known Allergies*] Review of Systems Review of Systems: Positive pain to the ankle, knee Yes all other systems are reviewed and are negative PMFSH Past Medical History Attestation statement: The following information was validated with the patient. Medical History CHF (congestive heart failure) Alcohol use disorder Alcohol abuse Acute hypoxemic respiratory failure Anemia Pneumonia Alcohol withdrawal syndrome Pancytopenia Alcohol abuse Thrombocytopenia Esophageal varices Acute on chronic anemia Alcoholic liver disease Aspiration pneumonia Thrombocytopenia Malnutrition CHF (congestive heart failure) Anemia Hypomagnesemia Cirrhosis Thrombocytopenia Acute on chronic anemia CHF (congestive heart failure) Anemia Alcohol abuse Surgical History No history of previous surgery Social History Social History Household Members: None Household Members Other:: homeless Housing: Homeless Housing Other:: Homeless nursing home Do you presently have visiting nurse or other home services: No Unable to assess alcohol history related to: Refusing to respond Alcohol intake: current Alcohol intake frequency: 3 or more drinks per day Alcohol type: beer and hard liquor Comment: 1 assist to bathroom Patient Tobacco Use Status: Former Tobacco user Tobacco use type: Cigarette Smoked in Last 30 Days: Yes Second Hand Smoke Exposure: No Use of substances other than those prescribed or required for medical reasons: Unknown Advance Directives: Yes Advance Directives on File: Yes Advance Directives Date on File: 07/13/23 Do you have a plan to hurt others: No Plan service: No Physical Exam Vital Signs: Vital Signs: Last Vital Signs Temp 98.5 F 04/29/25 15:18 Pulse 80 04/29/25 15:18 Resp 20 04/29/25 15:18 BP 101/54 L 04/29/25 15:18 Pulse Ox 91 L 04/29/25 15:18 O2 Del Method Room Air 04/29/25 15:18 BMI result Body Mass Index 33.3 Appearance: Alert. Oriented X3. No acute distress. Eyes: Pupils equal, round and reactive to light. ENT: Pharynx normal. Neck: Normal inspection. Neck supple. No lymph nodes noted. No crepitus CVS: Normal heart rate and rhythm. Pulses normal. Normal S1 and S2 Respiratory: No respiratory distress. Breath sounds normal. No Wheezing. No rales Abdomen: Soft and nontender. No rigidity. No distention. good BS x4 Skin: Skin warm and dry. Normal skin color. Normal skin turgor. Extremities: Positive pain to the left lower extremity. There is good pulses at dorsalis pedis there is minimal swelling noted over the calf and over at the foot. There is good movement of the ankle good movement of the knee good movement of the hip. Good movement of the toes. Skin is intact. Sensation grossly intact. Neuro: Oriented X 3. No motor deficit. No sensory deficit. Moving all extermities. No slurred speech Medical Decision Making Medical Decision Making [facility] Narrative: Patient's Doppler of the lower extremity was grossly negative for DVT there is good pulses there is no signs of vascular compromise. X-ray of the knee and ankle by my interpretation showed no acute fracture. Patient grossly intoxicated. After sobering ambulated well. Will discharge home. In stable condition. Differential Diagnosis Differential Diagnoses: The differential diagnosis associated with the presentation includes Fracture, DVT Lab Data [facility] Lab Attestation statement: I reviewed the patient's lab results. 04/29/25 13:39 04/29/25 13:39 Labs: Lab Results 04/29/25 04/29/25 Range/Units 13:39 13:43 WBC 2.5 L (4.8-10.8) X10*3/uL RBC 3.46 L D (4.60-5.80) X10*6/uL Hgb 10.4 L D (14.0-18.0) g/dl Hct 31.5 L D (42.0-52.0) % MCV 91.0 (80.0-98.0) fL MCH 30.1 (27.0-33.0) pg MCHC 33.0 (31.0-36.0) g/dl RDW 17.9 H (11.0-16.0) % Plt Count 37 L D (160-400) X10*3/uL MPV 10.6 (9.4-12.4) fL Immature Gran % (Auto) 0.4 (0.0-0.4) % Neut % (Auto) 61.7 (45-73) % Lymph % (Auto) 26.6 (20-40) % Bowman % (Auto) 9.3 (2-11) % Eos % (Auto) 0.8 (0-4) % Baso % (Auto) 1.2 (0-2) % Lymph # (Auto) 0.7 L (1.2-4.9) X10*3/uL Bowman # (Auto) 0.2 (0.1-1.2) X10*3/uL Eos # (Auto) 0.0 (0.0-0.4) X10*3/uL Baso # (Auto) 0.0 (0.0-0.2) X10*3/uL Abs Immat Gran (auto) 0.01 (0.00-0.03) X10*3/uL Absolute Neuts (auto) 1.5 L (2.0-8.3) x10*3/uL Absolute Nucleated RBC 0.000 (0.0-0.012) X10*3/uL Nucleated RBC % (auto) 0.0 (0.0-0.2) /100WBC Smear Tech's Comments VERIFIED PT 14.9 H (10.9-12.4) SEC INR 1.3 H (0.9-1.1) Sodium 143 (135-145) mmol/L Potassium 3.8 (3.3-5.1) mmol/L Chloride 113 H (96-108) mmol/L Carbon Dioxide 19 L (22-29) mmol/L Anion Gap 15 (12-20) BUN 7 L (9-16) mg/dL Creatinine 0.67 (0.5-1.4) mg/dL Estim Creat Clear Calc 127.4 Estimated GFR > 60 Random Glucose 86 (60-115) mg/dL Calcium 8.4 (8.4-10.2) mg/dL Total Bilirubin 0.7 (0.0-1.0) mg/dL Direct Bilirubin 0.3 (0.0-0.5) mg/dL AST 38 H (5-37) U/L ALT 8 (0-40) U/L Alkaline Phosphatase 140 H (39-117) U/L Total Protein 7.3 (6.5-8.0) g/dL Albumin 3.3 L (3.5-5.0) g/dL Ethyl Alcohol 291 mg/dL Independent Interpretation I performed an independent interpretation of an: Plain X-Ray (X-ray of the knee and ankle showed no acute fracture.) Radiology Impression Discussion of test interpretation with radiology: I have reviewed the radiologist's reading. External Record Review Previous labs Chronic Conditions Alcohol abuse Social Determinants Patient?s care significantly limited by Social Determinants of Health including: Problems related to primary support group and Unemployment Discharge Plan Discharge Clinical Impression: Acute leg pain, Alcohol abuse Patient Disposition: Home, Self-Care Instructions: Leg Pain (ED), Abuse of Alcohol (DC) Prescriptions: No Action sucralfate [Carafate] 1 gram tablet 1 g PO BID Qty: 60 0RF acetaminophen 325 mg Tablet 975 mg PO Q6H PRN (Reason: Pain, Mild 1-3,Fever,Headache) Qty: 30 0RF magnesium oxide 400 mg (241.3 mg magnesium) Tablet 400 mg PO DAILY Qty: 30 0RF Deep Sea Nasal 0.65 % Aerosol,[place] 1 spray intranasal Q1H PRN (Reason: Dryness) Qty: 44 0RF spironolactone 25 mg tablet 25 mg PO DAILY Qty: 90 0RF lactulose 10 gram/15 mL solution 30 ml PO TID omeprazole 40 mg capsule,delayed release(DR/EC) 40 mg PO DAILY@0630 folic acid 1 mg Tablet 1 mg PO DAILY Qty: 90 0RF thiamine mononitrate (vit B1) 100 mg Tablet 100 mg PO DAILY Qty: 90 0RF Referrals: [facility] [Provider Group] - 05/01/25 Print Language: Japanese
--- OUTSIDE RECORDS SUMMARY | 2025-04-29 12:41 | XMS_ITS | Encounter Summary ---
Author Organization [employer] Address [address] [place] [address] Care Team Providers Care Ball Holder Name Role Phone Misti Murry MD Primary Care Provider + Missy Milner RN Unavailable [phone] Conor Vidal Unavailable Encounter Details Date Type Department Care Team (Late st Contact Info) Description 04/23/2025 Results Follow-Up [facility] [address], [place] [phone] Misti Murry MD [address] [place] [address] XR Chest 2 Views Social History Tobacco Use Types Packs/Day Years Used Date Smoking Tobacco: Never Assessed Sex and Gender Information Value Date Recorded Sex Assigned at Male 11/23/2022 11:29 AM EST Legal Sex Male 11:26 AM EST Gender Identity Male 11/23/2022 11:29 AM EST Sexual Orientation Straight 01/11/2024 8: 14 AM EST documented as of this encounter Miscellaneous Notes * Telephone Encounter - Yazmin Snow RN - 04/24/2025 10:15 AM EDT TC to pt per Dr. Murry message. No, voice mail box has been set up. Voicemail message left instructing pt to return call to [facility] office. * Telephone Encounter - Cherry Boston RN - 04/23/2025 4:46 PM EDT TC placed to pt regarding message below per Dr. Murry. No answer. Message states, mailbox is full; unable to leave message at this time. RN will forward to Walk In Nurses to make second attempt. ----- Message from Misti Murry MD sent at 04/23/2025 4:09 PM EDT ----- CXR on 04/19/2025 showed interstitial prominence and thickening on peribronchial area, CXR was apparently done at the ED where patient was seen. Please reach out to patient and schedule an appointment at the walk-in center with as a new patient to follow-up on that ----- Message ----- From: Mihaela Zhong RN Sent: 04/21/2025 7:13 AM EDT To: Misti Murry MD ----- Message ----- From: Liv Hernández Results In Sent: 04/19/2025 10:11 AM EDT To: Odalys Foster Provider Pool * Result Encounter Note - Misti Murry MD - 04/23/2025 4:09 PM EDT CXR on 04/19/2025 showed interstitial prominence and thickening on peribronchial area, CXR was apparently done at the ED where patient was seen. Please reach out to patient and schedule an appointment at the walk-in center with as a new patient to follow-up on that documented in this encounter Plan of Treatment Upcoming Encounters Date Type Department Care Team (Late st Contact Info) Description 05/02/2025 10:00 AM EDT Office Visit [facility] [address], [place] [phone] Misti Murry MD [address] [place] [address] documented as of this encounter Visit Diagnoses Not on filedocumented in this encounter Care Teams Ball Holder Relationship Specialty Start Date End Date Misti Murry MD [address] [place] [address] PCP - General Internal Medicine 03/04/25 Missy Milner RN [address] [place] [address] Registered Nurse Family Medicine 04/23/25 Conor Vidal 04/23/25 documented as of this encounter
[2025-04-29 13:53] LABS: Basophils Percent Auto 1.2 % (0-2); Eosinophils Percent Auto 0.8 % (0-4); Hematocrit 31.5 % (42.0-52.0); Hemoglobin 10.4 g/dl (14.0-18.0); Imm Gran Abs Auto 0.01 X10*3/uL (0.00-0.03); Imm Gran Pct Auto 0.4 % (0.0-0.4); Lymphocytes Absolute Auto 0.7 X10*3/uL (1.2-4.9); Lymphocytes Percent Auto 26.6 % (20-40); MANUAL DIFF FLAG SCAN; Mean Corpuscular Hemoglobin 30.1 pg (27.0-33.0); Mean Platelet Volume 10.6 fL (9.4-12.4); Monocytes Absolute Auto 0.2 X10*3/uL (0.1-1.2); Monocytes Percent Auto 9.3 % (2-11); Neutrophils Absolute Auto 1.5 x10*3/uL (2.0-8.3); Neutrophils Percent Auto 61.7 % (45-73); Red Blood Count 3.46 X10*6/uL (4.60-5.80); Red Cell Distribution Width 17.9 % (11.0-16.0); SCAN SMEAR FLAG 1
[2025-04-29 13:56] LABS: Platelet Count 37 X10*3/uL (160-400); White Blood Count 2.5 X10*3/uL (4.8-10.8)
[2025-04-29 13:59] LABS: INTERNATIONAL NORM RATIO 1.3 (0.9-1.1); Prothrombin Time 14.9 SEC (10.9-12.4)
[2025-04-29 14:05] LABS: Alanine Aminotransferase 8 U/L (0-40); Albumin Level 3.3 g/dL (3.5-5.0); Alkaline Phosphatase 140 U/L (39-117); Anion Gap 15 (12-20); Aspartate Amino Transferase 38 U/L (5-37); Bilirubin Direct 0.3 mg/dL (0.0-0.5); Bilirubin Total 0.7 mg/dL (0.0-1.0); Blood Urea Nitrogen 7 mg/dL (9-16); Calcium 8.4 mg/dL (8.4-10.2); Carbon Dioxide 19 mmol/L (22-29); Chloride 113 mmol/L (96-108); Creatinine Clr Calc Pharmacy 127.4; Estimated Glomerular Filt Rate > 60; Ethanol 291 mg/dL; Glucose Random 86 mg/dL (60-115); Potassium 3.8 mmol/L (3.3-5.1); Sodium 143 mmol/L (135-145); Total Protein 7.3 g/dL (6.5-8.0)
[2025-04-29 14:18] LABS: SLIDE REVIEW VERIFIED
[2025-04-29 15:18] VITALS: BP 101/54; PULSE 80; RESP 20; TEMP 36.9; O2SAT 91
--- NOTE | 2025-04-29 15:19 | MHC.EDTECH ---
Addendum entered by Roxie Sanchez 04/29/25 15:19: vitals obtained stating 91% on RA RN made aware Original Note: urinal emptied containing 300mL of yellow urine
--- NOTE | 2025-04-29 17:47 | PC.NURSE ---
Pt ambulated slowly and steadily to BR; aware; pt asking to be DC'd home
[2025-04-29 18:02] VITALS: BP 113/56; PULSE 86; RESP 14; TEMP 36.8; O2SAT 93
[2025-04-29 18:13] VITALS: BP 113/56; PULSE 86; RESP 14; TEMP 36.8; O2SAT 93
== END 2025-04-29 18:15 | disposition home or self-care (01) ==
PROVIDERS: Emergency Provider Emergency Medicine Emergency Medical Services
DX: M79.662 Pain in left lower leg (principal); F10.10 Alcohol abuse, uncomplicated; Y90.8 Blood alcohol level of 240 mg/100 ml or more; Z59.00 Homelessness unspecified; Z87.891 Personal history of nicotine dependence
CPT/HCPCS: 36415; 73564; 73610; 73620; 80048; 80076; 80307; 85025; 85610; 93971; 99284

== ENCOUNTER → 2025-04-29 11:17 | Outpatient (BNV) | payer MEDICAID, SELFPAY | PROVIDERS: Emergency Provider Emergency Medicine Emergency Medical Services; Visit Provider Radiology Diagnostic Radiology | DX: M79.662 Pain in left lower leg (principal); M25.562 Pain in left knee; M25.572 Pain in left ankle and joints of left foot; M61.472 Other calcification of muscle, left ankle and foot | CPT/HCPCS: 73564; 73610; 73620; 93971 ==

== ENCOUNTER 2025-04-29 22:12 | Emergency (ER) | payer MEDICAID, SELFPAY ==
--- NOTE | ~2025-04-29 | XR_ITS ---
EXAMINATION: XR CHEST CLINICAL INFORMATION: cough COMPARISON: April 19, 2025. TECHNIQUE: 2 views of the chest were obtained. FINDINGS: Pulmonary reticular pattern. No consolidation, pleural effusion or pneumothorax. Cardiomediastinal silhouette size is normal. Calcified plaque thoracic aortic arch. Multilevel thoracic and upper lumbar spondylosis. 60-70 % volume loss of the vertebral body in the mid thoracic spine and likely old. Osteopenia versus osteoporosis. XR/XR chest 2V IMPRESSION: Consider mild interstitial lung edema in the correct clinical settings. Old compression fracture deformity mid thoracic spine vertebra. Electronically signed by: Eric Steele MD 04/30/2025 09:16 AM EDT
[2025-04-29 22:23] VITALS: BP 116/55; BP 130/70; PULSE 75; PULSE 82; RESP 20; TEMP 36.6; O2SAT 88; O2SAT 92; BMI 19.9
[2025-04-29 22:26] VITALS: O2SAT 91
[2025-04-30] VITALS (7 sets, daily range): BP systolic 94–110; BP diastolic 34–59; PULSE 81–89; RESP 13–16; TEMP 36.9–37.2; O2SAT 88–93
--- NOTE | 2025-04-30 00:58 | ED.ALCOHOL ---
HPI - Alcohol General Chief Complaint: Extremity Problem Stated Complaint: lowe extremity edema, drank liquor Time Seen by Provider: 04/29/25 22:54 Source: patient, EMS and old records reviewed Mode of arrival: EMS Limitations: other (ETOH intoxication) History of Present Illness ED Provider: ISAIAS VIVAR narrative: 55 yo male with PMH of CHF, hypoxia, ETOH use disorder, anemia, cirrhosis who does not take his medications as prescribed. He come in with c/o again for lower leg swelling as he is not taking his medications. He tells me he does not want to make medications. He states he does not want detox and wants to continue drinking. He has low O2 sats on arrival while laying flat. He has a history of this in the past. I would like to obtain labs and CXR but he is very angry right now and wants to sleep. He has similar presentation. MD complaint: alcohol intoxication Last drink: Just prior to admission Chronic alcohol use: Yes Previous visits for alcohol intoxication: Yes Recent trauma: No Associated symptoms: other (leg swelling) Treatments prior to arrival: none Related Data Home Medications ?Medication ?Instructions ?Recorded ?Confirmed lactulose 10 gram/15 mL oral 30 ml PO TID 02/01/25 03/03/25 solution omeprazole 40 mg capsule,delayed 40 mg PO DAILY@0630 02/01/25 03/03/25 release Previous Rx's ?Medication ?Instructions ?Recorded acetaminophen 325 mg tablet 975 mg (3 x 325 mg) PO Q6H PRN 12/17/24 Pain, Mild 1-3,Fever,Headache #30 tabs magnesium oxide 400 mg (241.3 mg 400 mg PO DAILY #30 tabs 12/17/24 magnesium) tablet sodium chloride 0.65 % nasal spray 1 spray intranasal Q1H PRN Dryness 12/17/24 aerosol (Deep Sea Nasal) #44 mL sucralfate 1 gram tablet (Carafate) 1 g PO BID #60 tabs 12/17/24 folic acid 1 mg tablet 1 mg PO DAILY #90 tabs 02/04/25 thiamine mononitrate (vit B1) 100 100 mg PO DAILY #90 tabs 02/04/25 mg tablet spironolactone 25 mg tablet 25 mg PO DAILY #90 tabs 02/13/25 Allergies Allergy/AdvReac Type Severity Reaction Status Date / Time No Known Allergies (No Known Allergy Verified 04/29/25 22:25 Allergies*) Review of Systems Review of Systems: Constitutional : No Fever, No Chills, No Fatigue ENT/Mouth : No sore throat, No Rhinorrhea Eyes: No Eye Pain, No Swelling, No Redness Cardiovascular : No Chest Pain, No SOB, No Dyspnea on Exertion Respiratory : No Cough, No Sputum Gastrointestinal : No Nausea, No Vomiting, No Diarrhea, No abdominal Pain Genitourinary : No Dysuria, No Urinary Frequency, No Hematuria, Musculoskeletal : No joint pain, No Myalgias, No Joint Swelling Skin : No Skin Lesions, No rash Neuro : No Weakness, No Numbness, No Dizziness, no Headache All other systems reviewed and are negative [facility] Past Medical History Attestation statement: The following information was validated with the patient. Source: old records reviewed Medical History CHF (congestive heart failure) Alcohol use disorder Alcohol abuse Acute hypoxemic respiratory failure Anemia Pneumonia Alcohol withdrawal syndrome Pancytopenia Alcohol abuse Thrombocytopenia Esophageal varices Acute on chronic anemia Alcoholic liver disease Aspiration pneumonia Thrombocytopenia Malnutrition CHF (congestive heart failure) Anemia Hypomagnesemia Cirrhosis Thrombocytopenia Acute on chronic anemia CHF (congestive heart failure) Anemia Alcohol abuse Surgical History No history of previous surgery Social History Social History Household Members: None Household Members Other:: homeless Housing: Homeless Housing Other:: Homeless custodial Do you presently have visiting nurse or other home services: No Unable to assess alcohol history related to: Refusing to respond Alcohol intake: current Alcohol intake frequency: 3 or more drinks per day Alcohol type: beer and hard liquor Comment: 1 assist to bathroom Patient Tobacco Use Status: Former Tobacco user Tobacco use type: Cigarette Second Hand Smoke Exposure: No Advance Directives: Yes Advance Directives on File: Yes Advance Directives Date on File: 07/13/23 service: No Physical Exam ED Vital Signs: Vital Signs - 24 hr 04/29/25 22:23 04/29/25 22:26 04/30/25 01:25 Temperature 97.9 F 98.9 F Pulse Rate 82 89 Respiratory Rate 20 16 Blood Pressure 116/55 L 101/59 L Pulse Oximetry 88 L 91 L 91 L Oxygen Delivery Method Room Air Nasal Cannula Nasal Cannula Oxygen Flow Rate 2 2 04/30/25 06:29 04/30/25 08:36 04/30/25 08:38 Temperature 98.6 F 98.5 F Pulse Rate 81 84 Respiratory Rate 16 13 Blood Pressure 94/34 L 106/47 L 110/57 L Pulse Oximetry 93 93 Oxygen Delivery Method Room Air Room Air Oxygen Flow Rate 04/30/25 08:48 04/30/25 09:32 04/30/25 10:44 Temperature 98.5 F Pulse Rate 84 Respiratory Rate 16 Blood Pressure 110/57 L Pulse Oximetry 88 L 91 L 91 L Oxygen Delivery Method Room Air Room Air Room Air Oxygen Flow Rate BMI result Body Mass Index 19.9 Appearance: Alert. Oriented X3. No acute distress. Eyes: Pupils equal, round and reactive to light. ENT: Pharynx normal. Neck: Normal inspection. Neck supple. CVS: Normal heart rate and rhythm. Pulses normal. Respiratory: No respiratory distress. Breath sounds diminished both bases Abdomen: Soft and nontender. Skin: Skin warm and dry. Normal skin color. Normal skin turgor. Extremities: 1-2+ pitting lower extremity edema. No calf ttp Neuro: Oriented X 3. No motor deficit. No sensory deficit. CN2-12 intact Course Reevaluation(s) Reevaluation #1: 04/30/2025 10:30 Am Patient was signed out to me by Dr. King's patient has been here for about 12 hours initially seen by Dr Del Rosario then Dr Sweeney overnight,. I got the sign-out that he was able to be discharged when stable and sober.. I re-examined the patient is complaint at time is knee pain left knee pain, he had an x-ray no fracture and an ultrasound no DVT labs are at baseline (pancytopenia) chemistry also at baseline. At this point of the patient wants to be discharged is stable his O2 sat on room air at this time he is 91% room air, as documented by Dr. Del Rosario he has a history of low O2 sat. Patient is frequent utilizer of the emergency department he was here on the , , yesterday x2. At this time he has no fever, his blood pressure is 110/57, his heart rate is 84, respirations 13 and O2 sat at this time 91 on room air. Chest x-ray showed no consolidation no pleural effusion no pneumothorax chronic interstitial changes Time: 10:38 Medical Decision Making Medical Decision Making [facility] Narrative: 55 yo male with PMH of CHF, hypoxia, ETOH use disorder, anemia, cirrhosis here with c/o leg swelling again and ETOH intoxication. He is very angry on arrival. He needs supplemental O2 which is intermittently baseline for him. He will be reassessed in AM to check O2 sat and to see if he will allow labs/CXR. Signed out to Dr. Sweeney Earlier today, patient declined all workup including labs and imaging, patient just wanted to sleep. This morning, Patient is awake, alert, still declining lab work but states that he feels well enough to go home. Patient requesting breakfast. Oxygen saturation is 93% on room air Patient declining to go to rehab Patient requesting breakfast Differential Diagnosis Differential Diagnoses: The differential diagnosis associated with the presentation includes CHF, anemia, ETOH use disorder Admission/Observation Consideration of admission/observation: Escalation of care including admission/observation considered will attempt to reassess in AM and allow labs and CXR Lab Data 04/30/25 09:19 04/30/25 09:19 Labs: Lab Results 04/30/25 Range/Units 09:19 WBC 2.8 L (4.8-10.8) X10*3/uL RBC 3.38 L (4.60-5.80) X10*6/uL Hgb 10.2 L (14.0-18.0) g/dl Hct 30.4 L (42.0-52.0) % MCV 89.9 (80.0-98.0) fL MCH 30.2 (27.0-33.0) pg MCHC 33.6 (31.0-36.0) g/dl RDW 17.8 H (11.0-16.0) % Plt Count 35 L (160-400) X10*3/uL MPV 9.7 (9.4-12.4) fL Immature Gran % (Auto) 0.4 (0.0-0.4) % Neut % (Auto) 51.6 (45-73) % Lymph % (Auto) 31.3 (20-40) % Gray % (Auto) 14.6 H (2-11) % Eos % (Auto) 1.4 (0-4) % Baso % (Auto) 0.7 (0-2) % Lymph # (Auto) 0.9 L (1.2-4.9) X10*3/uL Gray # (Auto) 0.4 (0.1-1.2) X10*3/uL Eos # (Auto) 0.0 (0.0-0.4) X10*3/uL Baso # (Auto) 0.0 (0.0-0.2) X10*3/uL Abs Immat Gran (auto) 0.01 (0.00-0.03) X10*3/uL Absolute Neuts (auto) 1.5 L (2.0-8.3) x10*3/uL Absolute Nucleated RBC 0.000 (0.0-0.012) X10*3/uL Nucleated RBC % (auto) 0.0 (0.0-0.2) /100WBC ESR 26 H (0-15) MM/HR Sodium 141 (135-145) mmol/L Potassium 3.8 (3.3-5.1) mmol/L Chloride 112 H (96-108) mmol/L Carbon Dioxide 19 L (22-29) mmol/L Anion Gap 14 (12-20) BUN 9 (9-16) mg/dL Creatinine 0.65 (0.5-1.4) mg/dL Estim Creat Clear Calc 100.3 Estimated GFR > 60 Random Glucose 84 (60-115) mg/dL Calcium 8.2 L (8.4-10.2) mg/dL Total Bilirubin 0.8 (0.0-1.0) mg/dL AST 33 (5-37) U/L ALT 10 (0-40) U/L Alkaline Phosphatase 138 H (39-117) U/L Total Protein 7.0 (6.5-8.0) g/dL Albumin 3.2 L (3.5-5.0) g/dL Independent Historian Clinical information obtained from an independent historian. History obtained from or confirmed by: EMS External Record Review External record reviewed: Inpatient record and Outpatient record Tests considered The following testing was considered but not selected: labs, EKG, CXR - currently patient asking to sleep Medications Administered Discontinued Medications Generic Name Dose Route Start Last Admin Trade Name Freq PRN Reason Stop Dose Admin Naproxen 500 mg 04/30/25 08:51 04/30/25 09:17 Naproxen 500 Mg Tablet PO 04/30/25 08:52 500 mg ONCE ONE Administration Discharge Plan Discharge Clinical Impression: Lower extremity edema Patient Disposition: Home, Self-Care Instructions: Leg Edema (ED) Additional Instructions: Please follow-up with your primary care physician tomorrow. If you have any worsening or new symptoms, please return to the emergency room or call 911 Prescriptions: No Action sucralfate [Carafate] 1 gram tablet 1 g PO BID Qty: 60 0RF acetaminophen 325 mg Tablet 975 mg PO Q6H PRN (Reason: Pain, Mild 1-3,Fever,Headache) Qty: 30 0RF magnesium oxide 400 mg (241.3 mg magnesium) Tablet 400 mg PO DAILY Qty: 30 0RF Deep Sea Nasal 0.65 % Aerosol,[place] 1 spray intranasal Q1H PRN (Reason: Dryness) Qty: 44 0RF spironolactone 25 mg tablet 25 mg PO DAILY Qty: 90 0RF lactulose 10 gram/15 mL solution 30 ml PO TID omeprazole 40 mg capsule,delayed release(DR/EC) 40 mg PO DAILY@0630 folic acid 1 mg Tablet 1 mg PO DAILY Qty: 90 0RF thiamine mononitrate (vit B1) 100 mg Tablet 100 mg PO DAILY Qty: 90 0RF Interventions: ED Discharge Assessment Last Done: 04/30/25 10:44 Discharge Date/Time: 04/30/25 10:45 Print Language: Yoruba
--- NOTE | 2025-04-30 08:48 | PC.NURSE ---
55 M c/o L knee pain 06/22, was here for ETOH. Pt also noted to have O2 sat that dropped to 88-89% on room air, came up when speaking to the patient but then dropped again. Lung sounds clear bilat. Provider aware. Pt ambulated with a cane at baseline, seems unsteady at this time. Pt agreed to have bloodwork done and have a chest xray.
[2025-04-30] MEDS: NaPROXEN 500 MG TABLET PO (09:17)
[2025-04-30 09:25] LABS: MANUAL DIFF FLAG NO
[2025-04-30 09:28] LABS: Basophils Percent Auto 0.7 % (0-2); Eosinophils Percent Auto 1.4 % (0-4); Hematocrit 30.4 % (42.0-52.0); Hemoglobin 10.2 g/dl (14.0-18.0); Imm Gran Abs Auto 0.01 X10*3/uL (0.00-0.03); Imm Gran Pct Auto 0.4 % (0.0-0.4); Lymphocytes Absolute Auto 0.9 X10*3/uL (1.2-4.9); Lymphocytes Percent Auto 31.3 % (20-40); Mean Corpuscular HGB Conc 33.6 g/dl (31.0-36.0); Mean Corpuscular Hemoglobin 30.2 pg (27.0-33.0); Mean Corpuscular Volume 89.9 fL (80.0-98.0); Mean Platelet Volume 9.7 fL (9.4-12.4); Monocytes Absolute Auto 0.4 X10*3/uL (0.1-1.2); Monocytes Percent Auto 14.6 % (2-11); Neutrophils Absolute Auto 1.5 x10*3/uL (2.0-8.3); Neutrophils Percent Auto 51.6 % (45-73); Platelet Count 35 X10*3/uL (160-400); Red Blood Count 3.38 X10*6/uL (4.60-5.80); Red Cell Distribution Width 17.8 % (11.0-16.0); White Blood Count 2.8 X10*3/uL (4.8-10.8)
[2025-04-30 09:43] LABS: Alanine Aminotransferase 10 U/L (0-40); Albumin Level 3.2 g/dL (3.5-5.0); Alkaline Phosphatase 138 U/L (39-117); Anion Gap 14 (12-20); Aspartate Amino Transferase 33 U/L (5-37); Bilirubin Total 0.8 mg/dL (0.0-1.0); Blood Urea Nitrogen 9 mg/dL (9-16); Calcium 8.2 mg/dL (8.4-10.2); Carbon Dioxide 19 mmol/L (22-29); Chloride 112 mmol/L (96-108); Creatinine Clr Calc Pharmacy 100.3; Estimated Glomerular Filt Rate > 60; Glucose Random 84 mg/dL (60-115); Potassium 3.8 mmol/L (3.3-5.1); Sodium 141 mmol/L (135-145)
[2025-04-30 10:16] LABS: Erythrocyte Sedimentation Rate 26 MM/HR (0-15)
--- NOTE | 2025-04-30 10:25 | PC.NURSE ---
pt ambulated to the bathroom with his baseline
== END 2025-04-30 10:45 | disposition home or self-care (01) ==
PROVIDERS: Emergency Medicine; Emergency Provider Emergency Medicine
DX: R60.0 Localized edema (principal); R05.9 Cough, unspecified; Z91.148 Patient's other noncompliance with medication regimen for other reason
CPT/HCPCS: 36415; 71046; 80053; 85025; 85652; 87040; 99283; 99284

== ENCOUNTER → 2025-04-30 08:52 | Outpatient (BNV) | payer MEDICAID, SELFPAY | PROVIDERS: Emergency Provider Emergency Medicine; Visit Provider Radiology Diagnostic Radiology | DX: J84.9 Interstitial pulmonary disease, unspecified (principal) | CPT/HCPCS: 71046 ==

== ENCOUNTER 2025-04-30 19:20 | Emergency (ER) | payer MEDICAID, SELFPAY ==
[2025-04-30 19:45] VITALS: BP 112/54; BP 132/68; PULSE 87; RESP 20; TEMP 36.8; O2SAT 93; O2SAT 95; BMI 20.2
--- NOTE | 2025-04-30 19:51 | ED.GENADULT ---
HPI - General Adult General Chief complaint: Extremity Problem Stated complaint: L ankle swelling/pain Time Seen by Provider: 05/01/25 00:31 Source: patient Limitations: no limitations History of Present Illness ED Provider: Dr. Boyd Romero HPI narrative: 55 year old male with Past medical history of CHF, hypoxia, ETOH use disorder and continues to drink alcohol did, anemia, cirrhosis who does not take his medications as prescribed who presents emergency department complaining of left knee pain. Patient has been seen here multiple times in the past for lower extremity pain, he was seen yesterday 04/29/2025 with similar complaint. Patient states that he has pain in his left knee because he has to walk on it all the time. He states in his right knee is not bothering him. He denies any injury. Patient does have a strong odor of alcohol in his breath and does appear to be acutely intoxicated. Related Data Home Medications ?Medication ?Instructions ?Recorded ?Confirmed lactulose 10 gram/15 mL oral 30 ml PO TID 02/01/25 03/03/25 solution omeprazole 40 mg capsule,delayed 40 mg PO DAILY@0630 02/01/25 03/03/25 release Previous Rx's ?Medication ?Instructions ?Recorded acetaminophen 325 mg tablet 975 mg (3 x 325 mg) PO Q6H PRN 12/17/24 Pain, Mild 1-3,Fever,Headache #30 tabs magnesium oxide 400 mg (241.3 mg 400 mg PO DAILY #30 tabs 12/17/24 magnesium) tablet sodium chloride 0.65 % nasal spray 1 spray intranasal Q1H PRN Dryness 12/17/24 aerosol (Deep Sea Nasal) #44 mL sucralfate 1 gram tablet (Carafate) 1 g PO BID #60 tabs 12/17/24 folic acid 1 mg tablet 1 mg PO DAILY #90 tabs 02/04/25 thiamine mononitrate (vit B1) 100 100 mg PO DAILY #90 tabs 02/04/25 mg tablet spironolactone 25 mg tablet 25 mg PO DAILY #90 tabs 02/13/25 Allergies Allergy/AdvReac Type Severity Reaction Status Date / Time No Known Allergies (No Known Allergy Verified 04/30/25 19:46 Allergies*) PMFSH Past Medical History Medical History CHF (congestive heart failure) Alcohol use disorder Alcohol abuse Acute hypoxemic respiratory failure Anemia Pneumonia Alcohol withdrawal syndrome Pancytopenia Alcohol abuse Thrombocytopenia Esophageal varices Acute on chronic anemia Alcoholic liver disease Aspiration pneumonia Thrombocytopenia Malnutrition CHF (congestive heart failure) Anemia Hypomagnesemia Cirrhosis Thrombocytopenia Acute on chronic anemia CHF (congestive heart failure) Anemia Alcohol abuse Surgical History No history of previous surgery Social History Social History Household Members: None Household Members Other:: homeless Housing: Homeless Housing Other:: Homeless fpc Do you presently have visiting nurse or other home services: No Unable to assess alcohol history related to: Refusing to respond Alcohol intake: current Alcohol intake frequency: 3 or more drinks per day Alcohol type: beer and hard liquor Comment: 1 assist to bathroom Patient Tobacco Use Status: Former Tobacco user Tobacco use type: Cigarette Second Hand Smoke Exposure: No Advance Directives: Yes Advance Directives on File: Yes Advance Directives Date on File: 07/13/23 service: No Physical Exam ED Vital Signs: Vital Signs - 24 hr 04/30/25 19:45 Temperature 98.2 F Pulse Rate 87 Respiratory Rate 20 Blood Pressure 112/54 L Pulse Oximetry 93 Oxygen Delivery Method Room Air BMI result Body Mass Index 20.2 Vital signs were normal Exam: General: Awake, , strong odor of alcohol in his breath, appears to be acutely intoxicated Head: Normocephalic, atraumatic Heart: regular rate and rhythm, normal S1, S2 no murmurs or rubs Abdomen: soft, non-tender, nondistended, normal bowel sounds Extremities: there is no increased warmth or erythema to his left knee, there is no joint effusion, he is able to flex and extend the knee but does appear to have pain when he does this, right knee is normal Neuro: Awake, alert, oriented, slurred but comprehensible speech, cranial nerves intact, moves all extremities symmetrically Course Course Course Narrative: RME, this is a rapid medical exam performed by [facility] [place] please refer to primary provider for complete H&P- 55-year-old male presents for evaluation of left leg pain and swelling. This is the patient's 10th visit this month for similar complaints. He admits to alcohol abuse. He had a chest x-ray earlier this morning did not show any consolidation, he had an ultrasound of the left lower extremity that did not show DVT yesterday. Medical Decision Making Medical Decision Making [facility] Narrative: 55 year old male with Past medical history of CHF, hypoxia, ETOH use disorder and continues to drink alcohol did, anemia, cirrhosis who does not take his medications as prescribed who presents emergency department complaining of left knee pain. Patient has been seen here multiple times in the past for lower extremity pain, he was seen yesterday 04/29/2025 with similar complaint. Patient states that he has pain in his left knee because he has to walk on it all the time. He states in his right knee is not bothering him. He denies any injury. Patient does have a strong odor of alcohol in his breath and does appear to be acutely intoxicated. vital signs were normal. Physical examination did reveal pain with movement over the left knee but otherwise no other findings. Differential diagnosis: Includes but is not limited to contusion, infection, chronic pain, knee sprain Course: 00:42 Patient is seen frequently here in the emergency department for alcohol use disorder, acute alcohol intoxication and lower extremity pain. This time I do not think that the patient has an acute injury or infection of the patient's pain is chronic. Patient was given ibuprofen 400 mg orally. Patient will be discharged home. Admission/Observation Consideration of admission/observation: Escalation of care including admission/observation considered ( No) Chronic Conditions Patient?s care impacted by: Other ( alcohol use disorder) Discharge Plan Discharge Clinical Impression: Acute pain of left knee, Alcohol use disorder, Alcohol intoxication Patient Disposition: Home, Self-Care Additional Instructions: continue taking your pain medications as prescribed by your providers. You need to get help with your alcohol use disorder. Alcohol use disorder You were seen in the Emergency Department today for treatment of alcohol use disorder.? If you would like to cut down or stop your alcohol use please consider calling our outpatient Addiction Treatment office:? [facility] ([id number] [id number] ? You have also been given a list of treatment providers in the area that can assist as well.? If you experience seizures, vomiting blood, black stools, falls, severe headache, chest pain, fevers, trouble breathing, hallucinations or any other concerns you need to call 911 or seek immediate care. Please stay hydrated. Prescriptions: No Action sucralfate [Carafate] 1 gram tablet 1 g PO BID Qty: 60 0RF acetaminophen 325 mg Tablet 975 mg PO Q6H PRN (Reason: Pain, Mild 1-3,Fever,Headache) Qty: 30 0RF magnesium oxide 400 mg (241.3 mg magnesium) Tablet 400 mg PO DAILY Qty: 30 0RF Deep Sea Nasal 0.65 % Aerosol,[place] 1 spray intranasal Q1H PRN (Reason: Dryness) Qty: 44 0RF spironolactone 25 mg tablet 25 mg PO DAILY Qty: 90 0RF lactulose 10 gram/15 mL solution 30 ml PO TID omeprazole 40 mg capsule,delayed release(DR/EC) 40 mg PO DAILY@0630 folic acid 1 mg Tablet 1 mg PO DAILY Qty: 90 0RF thiamine mononitrate (vit B1) 100 mg Tablet 100 mg PO DAILY Qty: 90 0RF Print Language: Wolof
[2025-05-01 00:42] VITALS: BP 97/55; PULSE 77; RESP 20; TEMP 36.6; O2SAT 90
[2025-05-01 00:47] VITALS: BP 97/55; PULSE 77; RESP 20; TEMP 36.6; O2SAT 90
[2025-05-01] MEDS: Ibuprofen 400 MG TABLET PO (00:47)
== END 2025-05-01 01:06 | disposition home or self-care (01) ==
PROVIDERS: Emergency Provider Emergency Medicine Emergency Medical Services
DX: F10.129 Alcohol abuse with intoxication, unspecified (principal); Y90.9 Presence of alcohol in blood, level not specified; M25.562 Pain in left knee; Z59.00 Homelessness unspecified; Z91.148 Patient's other noncompliance with medication regimen for other reason; Z79.899 Other long term (current) drug therapy
CPT/HCPCS: 99284

== ENCOUNTER 2025-05-02 07:52 | Emergency (ER) | payer MEDICAID, SELFPAY ==
[2025-05-02 08:16] VITALS: BP 108/47; BP 116/54; PULSE 72; PULSE 76; RESP 19; TEMP 36.7; O2SAT 93; O2SAT 96; BMI 20.8
--- NOTE | 2025-05-02 08:32 | ED.LOWEXIN ---
HPI - Extremity Injury (Lower) General Chief Complaint: ETOH/Substance Use Stated Complaint: l leg pain Time Seen by Provider: 05/02/25 08:25 Source: patient and EMS Mode of arrival: ambulatory Limitations: other (ETOH intoxication) History of Present Illness ED Provider: HPI Narrative: 55-year-old male with history of EtOH, chronic left lower extremity pain with prior x-rays and ultrasounds presenting complaining of left knee pain, having to ambulate with his cane, and he does admit to drinking a half pt of vodka today was found sleeping behind a liquor store by EMS and brought to the ER. Related Data Home Medications ?Medication ?Instructions ?Recorded ?Confirmed lactulose 10 gram/15 mL oral 30 ml PO TID 02/01/25 03/03/25 solution omeprazole 40 mg capsule,delayed 40 mg PO DAILY@0630 02/01/25 03/03/25 release Previous Rx's ?Medication ?Instructions ?Recorded acetaminophen 325 mg tablet 975 mg (3 x 325 mg) PO Q6H PRN 12/17/24 Pain, Mild 1-3,Fever,Headache #30 tabs magnesium oxide 400 mg (241.3 mg 400 mg PO DAILY #30 tabs 12/17/24 magnesium) tablet sodium chloride 0.65 % nasal spray 1 spray intranasal Q1H PRN Dryness 12/17/24 aerosol (Deep Sea Nasal) #44 mL sucralfate 1 gram tablet (Carafate) 1 g PO BID #60 tabs 12/17/24 folic acid 1 mg tablet 1 mg PO DAILY #90 tabs 02/04/25 thiamine mononitrate (vit B1) 100 100 mg PO DAILY #90 tabs 02/04/ mg tablet spironolactone 25 mg tablet 25 mg PO DAILY #90 tabs 02/13/25 Allergies Allergy/AdvReac Type Severity Reaction Status Date / Time No Known Allergies (No Known Allergy Verified 05/23/25 13:37 Allergies*) Review of Systems Constitutional: Constitutional: Reports as per [facility] Past Medical History Medical History CHF (congestive heart failure) Alcohol use disorder Alcohol abuse Acute hypoxemic respiratory failure Anemia Pneumonia Alcohol withdrawal syndrome Pancytopenia Alcohol abuse Thrombocytopenia Esophageal varices Acute on chronic anemia Alcoholic liver disease Aspiration pneumonia Thrombocytopenia Malnutrition CHF (congestive heart failure) Anemia Hypomagnesemia Cirrhosis Thrombocytopenia Acute on chronic anemia CHF (congestive heart failure) Anemia Alcohol abuse Surgical History No history of previous surgery Social History Social History Household Members: None Household Members Other:: homeless Housing: Homeless Housing Other:: Homeless [facility] Do you presently have visiting nurse or other home services: No Unable to assess alcohol history related to: Refusing to respond Alcohol intake: current Alcohol intake frequency: 3 or more drinks per day Alcohol type: beer Comment: 1 assist to bathroom Patient Tobacco Use Status: Former Tobacco user Tobacco use type: Cigarette Second Hand Smoke Exposure: No Advance Directives Date on File: 07/13/23 service: No Physical Exam Vital Signs: Vital Signs: Last Vital Signs Temp 98.6 F 05/02/25 17:20 Pulse 12 L 05/02/25 17:20 Resp 80 H 05/02/25 17:20 BP 112/56 L 05/02/25 17:20 Pulse Ox 99 05/02/25 17:20 O2 Del Method Room Air 05/02/25 17:20 BMI result Body Mass Index 20.8 Const: Other: Patient is clinically intoxicated, looks older than stated age, no facial trauma, no head trauma Breathing comfortably, no wheezing or rales Examination of left lower extremity reveals full range of motion of the knee, no knee effusion, soft compartments, he has edema of his left ankle, distal pulses intact, Medications Administered Discontinued Medications Generic Name Dose Route Start Last Admin Trade Name Freq PRN Reason Stop Dose Admin Ketorolac Tromethamine 15 mg 05/02/25 08:30 05/02/25 09:08 Ketorolac Tromethamine 15 Mg/Ml Vial IM 05/02/25 08:31 15 mg ONCE ONE Administration Lidocaine 1 patch 05/02/25 08:30 05/02/25 09:08 Lidocaine 4 % Patch Adh..Patch TRANSDERMA 05/02/25 08:31 1 patch ONCE ONE Administration Protocol Medical Decision Making Medical Decision Making MDM Narrative: Physical examination is reassuring without any evidence to suspect septic joint, trauma, cellulitis, evidence for DVT or arterial insufficiency, did not feel further imaging such as ultrasound or x-ray is indicated, symptomatic control for this is recommended, unfortunately the patient also has significant social issues, he has history of significant alcohol use disorder, and lack of access to healthcare, I will observe him pending clinical sobriety and discharge from the ear Differential Diagnosis Differential Diagnoses: The differential diagnosis associated with the presentation includes Septic joint, DVT, arterial insufficiency, inflammatory joint, Social Determinants Patient?s care significantly limited by Social Determinants of Health including: Inadequate housing, Low income and Alcoholism and drug addiction in family Discharge Plan Discharge Clinical Impression: Alcoholic intoxication Patient Disposition: Home, Self-Care Prescriptions: No Action sucralfate [Carafate] 1 gram tablet 1 g PO BID Qty: 60 0RF acetaminophen 325 mg Tablet 975 mg PO Q6H PRN (Reason: Pain, Mild 1-3,Fever,Headache) Qty: 30 0RF magnesium oxide 400 mg (241.3 mg magnesium) Tablet 400 mg PO DAILY Qty: 30 0RF Deep Sea Nasal 0.65 % Aerosol,[place] 1 spray intranasal Q1H PRN (Reason: Dryness) Qty: 44 0RF spironolactone 25 mg tablet 25 mg PO DAILY Qty: 90 0RF lactulose 10 gram/15 mL solution 30 ml PO TID omeprazole 40 mg capsule,delayed release(DR/EC) 40 mg PO DAILY@0630 folic acid 1 mg Tablet 1 mg PO DAILY Qty: 90 0RF thiamine mononitrate (vit B1) 100 mg Tablet 100 mg PO DAILY Qty: 90 0RF Interventions: ED Discharge Assessment Last Done: 05/02/25 17:20 Discharge Date/Time: 05/02/25 17:21 Print Language: Venezuelan
--- OUTSIDE RECORDS SUMMARY | 2025-05-02 08:33 | XMS_ITS | Encounter Summary ---
Author Organization [employer] Address [address] [facility] [address] [place] [address] Care Team Providers Care Mutuel Teller Name Role Phone Misti Murry MD Primary Care Provider + Missy Milner RN Unavailable [phone] Conor Vidal Unavailable Encounter Details Date Type Department Care Team (Late st Contact Info) Description 04/23/2025 Results Follow-Up [facility] [address] [place], [place] [phone] Misti Murry MD [address] [place] [address] XR Chest 2 Views Social History Tobacco [...] Telephone Encounter - Yazmin Snow RN - 04/30/2025 12:02 PM EDT TC to pt other number listed to contact pt about up coming appt. No answer. Number has been changedor disconnected per answering message, unable to leave voicemail. Please review chest x-ray at upcoming appointment on 05/02/25 * Telephone Encounter - Yazmin Snow RN - 04/30/2025 12:01 PM EDT TC to primary number listed which is brothers to inform of upcoming appointment. No answer. Voicemail left instructing pt to return call to [facility]. * Telephone Encounter - Yazmin Snow RN - 04/24/2025 10:15 AM EDT TC to pt per Dr. Murry message. No, voice mail box has been set up. Unable to leave message. * Telephone Encounter - Cherry Boston RN [...] Misti Murry MD ----- Message ----- From: Edgar, Ris Results In Sent: 04/19/2025 10:11 AM EDT [...] 05/02/2025 10:00 AM EDT Office Visit [facility] [address] [place] [address] [phone] Misti Murry MD [address] [place] [phone] documented as of this encounter Visit Diagnoses Not on filedocumented in this encounter Care Teams Mutuel Teller Relationship Specialty Start Date End Date Misti Murry MD [address] [place] [phone] PCP - General Internal Medicine 03/04/25 Missy Milner RN [address] [place] [phone] Registered Nurse Family Medicine 04/23/25 Conor Vidal 04/23/25 documented as of this encounter
--- NOTE | 2025-05-02 08:40 | PC.NURSE ---
Pt O2 found to be 82% on RA. Placed on 3L NC- O2 sat increased to mid 90s, no increased wob/sob, respirations even and unlabored. Primary RN aware.
[2025-05-02] MEDS: Ketorolac Tromethamine 15 MG/ML VIAL IM (09:08)
[2025-05-02] MEDS: Lidocaine 4 % Patch ADH..PATCH 1 PATCH TRANSDERMA (09:08)
[2025-05-02 10:00] VITALS: BP 108/60; PULSE 63; RESP 15; TEMP 36.7; O2SAT 100
[2025-05-02 16:00] VITALS: BP 112/56; PULSE 12; RESP 80; TEMP 37; O2SAT 99
[2025-05-02 17:20] VITALS: BP 112/56; PULSE 12; RESP 80; TEMP 37; O2SAT 99
--- NOTE | 2025-05-02 17:20 | PC.NURSE ---
this nurse discharging for the patients nurse, pt awake/alert, ambulatory with cane/steady gait, vitals stable.
== END 2025-05-02 17:21 | disposition home or self-care (01) ==
PROVIDERS: Emergency Provider Emergency Medicine
DX: M25.562 Pain in left knee (principal); F10.129 Alcohol abuse with intoxication, unspecified; Y90.9 Presence of alcohol in blood, level not specified; Z79.899 Other long term (current) drug therapy; Z87.891 Personal history of nicotine dependence
CPT/HCPCS: 96372; 99284; J1885

== ENCOUNTER 2025-05-03 20:37 | Emergency (ER) | payer MEDICAID, SELFPAY ==
[2025-05-03 20:41] VITALS: BP 120/70; PULSE 81; O2SAT 91
[2025-05-03 20:44] VITALS: BP 107/50; PULSE 99; RESP 13; TEMP 36.7; O2SAT 99; BMI 19.4
[2025-05-03 22:00] VITALS: BP 138/72; PULSE 77; RESP 16; TEMP 36.8; O2SAT 100
--- NOTE | 2025-05-03 22:26 | PC.NURSE ---
pt ambulated to the bathroom with cane for BM, slow but steady on feet with cane
--- NOTE | 2025-05-03 22:38 | ED.LOWEXIN ---
HPI - Extremity Injury (Lower) General Chief Complaint: Extremity Injury, Lower Stated Complaint: leg edema Time Seen by Provider: 05/03/25 22:32 Source: patient Mode of arrival: EMS Limitations: no limitations History of Present Illness ED Provider: Dr. Boyd Romero HPI Narrative: 55 year old male with past medical history of CHF, hypoxia, ETOH use disorder and continues to drink alcohol, anemia, cirrhosis who does not take his medications as prescribed, chronic lower extremity who was brought to emergency department by ambulance for evaluation of bilateral lower extremity pain and edema. Patient was apparently seen yesterday at [facility] for similar pain and was placed in a left Aircast. The patient is seen frequently here in the emergency department for similar complaints with last ED visit yesterday 05/02/2025. Related Data Home Medications ?Medication ?Instructions ?Recorded ?Confirmed lactulose 10 gram/15 mL oral 30 ml PO TID 02/01/25 03/03/25 solution omeprazole 40 mg capsule,delayed 40 mg PO DAILY@0630 02/01/25 03/03/25 release Previous Rx's ?Medication ?Instructions ?Recorded acetaminophen 325 mg tablet 975 mg (3 x 325 mg) PO Q6H PRN 12/17/24 Pain, Mild 1-3,Fever,Headache #30 tabs magnesium oxide 400 mg (241.3 mg 400 mg PO DAILY #30 tabs 12/17/24 magnesium) tablet sodium chloride 0.65 % nasal spray 1 spray intranasal Q1H PRN Dryness 12/17/24 aerosol (Deep Sea Nasal) #44 mL sucralfate 1 gram tablet (Carafate) 1 g PO BID #60 tabs 12/17/24 folic acid 1 mg tablet 1 mg PO DAILY #90 tabs 02/04/25 thiamine mononitrate (vit B1) 100 100 mg PO DAILY #90 tabs 02/04/ mg tablet spironolactone 25 mg tablet 25 mg PO DAILY #90 tabs 02/13/25 Allergies Allergy/AdvReac Type Severity Reaction Status Date / Time No Known Allergies (No Known Allergy Verified 05/03/25 20:45 Allergies*) [facility] Past Medical History Medical History CHF (congestive heart failure) Alcohol use disorder Alcohol abuse Acute hypoxemic respiratory failure Anemia Pneumonia Alcohol withdrawal syndrome Pancytopenia Alcohol abuse Thrombocytopenia Esophageal varices Acute on chronic anemia Alcoholic liver disease Aspiration pneumonia Thrombocytopenia Malnutrition CHF (congestive heart failure) Anemia Hypomagnesemia Cirrhosis Thrombocytopenia Acute on chronic anemia CHF (congestive heart failure) Anemia Alcohol abuse Surgical History No history of previous surgery Social History Social History Household Members: None Household Members Other:: homeless Housing: Homeless Housing Other:: Homeless prison Do you presently have visiting nurse or other home services: No Unable to assess alcohol history related to: Refusing to respond Alcohol intake: current Alcohol intake frequency: 3 or more drinks per day Alcohol type: beer and hard liquor Comment: 1 assist to bathroom Patient Tobacco Use Status: Former Tobacco user Tobacco use type: Cigarette Second Hand Smoke Exposure: No Advance Directives: Yes Advance Directives on File: Yes Advance Directives Date on File: 07/13/23 service: No Physical Exam Vital Signs: Vital Signs: Last Vital Signs Temp 98.2 F 05/03/25 22:00 Pulse 77 05/03/25 22:00 Resp 16 05/03/25 22:00 BP 138/72 05/03/25 22:00 Pulse Ox 100 05/03/25 22:00 O2 Del Method Room Air 05/03/25 22:00 BMI result Body Mass Index 19.4 Vital signs were normal Exam: General: Awake, alert, strong odor of alcohol in his breath, appears intoxicated Extremities: Right ankle with Aircast, no increased warmth, swelling or erythema of his joints, no peripheral edema Psych: Pleasant, cooperative Medical Decision Making Medical Decision Making MDM Narrative: 55 year old male with past medical history of CHF, hypoxia, ETOH use disorder and continues to drink alcohol, anemia, cirrhosis who does not take his medications as prescribed, chronic lower extremity who was brought to emergency department by ambulance for evaluation of bilateral lower extremity pain and edema. Patient was apparently seen yesterday at [facility] for similar pain and was placed in a left Aircast. The patient is seen frequently here in the emergency department for similar complaints with last ED visit yesterday 05/02/2025. Vital signs were normal. Examination revealed no significant abnormalities in his lower extremities. Differential diagnosis: ?Includes but is not limited to alcohol intoxication, chronic leg pain Course: Patient's presentation and findings are consistent with a chronic leg pain and alcohol intoxication. This time I do not think that he needs any further testing and treatment. The patient will be discharged from the emergency department. Admission/Observation Consideration of admission/observation: Escalation of care including admission/observation considered (No) Chronic Conditions Patient?s care impacted by: Other (Chronic lower extremity pain, alcohol use disorder) Discharge Plan Discharge Clinical Impression: Alcohol intoxication, Chronic pain of both lower extremities Patient Disposition: Home, Self-Care Additional Instructions: You need to get help with your alcohol use disorder Continue taking medications as prescribed by your provider Follow-up with your doctor in 2 days. Please return to the emergency department if your symptoms get worse or if you develop any symptoms that are concerning to you. Prescriptions: No Action sucralfate [Carafate] 1 gram tablet 1 g PO BID Qty: 60 0RF acetaminophen 325 mg Tablet 975 mg PO Q6H PRN (Reason: Pain, Mild 1-3,Fever,Headache) Qty: 30 0RF magnesium oxide 400 mg (241.3 mg magnesium) Tablet 400 mg PO DAILY Qty: 30 0RF Deep Sea Nasal 0.65 % Aerosol,[place] 1 spray intranasal Q1H PRN (Reason: Dryness) Qty: 44 0RF spironolactone 25 mg tablet 25 mg PO DAILY Qty: 90 0RF lactulose 10 gram/15 mL solution 30 ml PO TID omeprazole 40 mg capsule,delayed release(DR/EC) 40 mg PO DAILY@0630 folic acid 1 mg Tablet 1 mg PO DAILY Qty: 90 0RF thiamine mononitrate (vit B1) 100 mg Tablet 100 mg PO DAILY Qty: 90 0RF Print Language: [place]ese
[2025-05-03 23:11] VITALS: BP 138/72; PULSE 77; RESP 16; TEMP 36.8; O2SAT 100
== END 2025-05-03 23:32 | disposition home or self-care (01) ==
PROVIDERS: Emergency Provider Emergency Medicine Emergency Medical Services
DX: F10.120 Alcohol abuse with intoxication, uncomplicated (principal); Y90.9 Presence of alcohol in blood, level not specified; R60.0 Localized edema; G89.29 Other chronic pain; M79.605 Pain in left leg; M79.604 Pain in right leg; Z87.891 Personal history of nicotine dependence; Z79.899 Other long term (current) drug therapy
CPT/HCPCS: 99283

== ENCOUNTER 2025-05-05 13:57 | Emergency (ER) | payer MEDICAID, SELFPAY ==
--- NOTE | ~2025-05-05 | XR_ITS ---
EXAMINATION: XR CHEST CLINICAL INFORMATION: SOB COMPARISON: April 30 2025 TECHNIQUE: 2 views of the chest were obtained. FINDINGS: Borderline cardiac enlargement is noted. Subtle increased markings. There is no evidence of pleural effusion. Chronic moderate compression fracture is present in the midthoracic spine. XR/XR chest 2V IMPRESSION: Mildly prominent interstitial markings are slightly improved when compared with prior study 5 days ago. Possible improving interstitial edema. Borderline cardiomegaly. Electronically signed by: Elias Smith MD 05/05/2025 02:57 PM EDT
[2025-05-05 14:01] VITALS: BP 119/51; PULSE 18; RESP 18; TEMP 37.2; O2SAT 89; BMI 19.7
--- NOTE | 2025-05-05 14:04 | ED.GENADULT ---
HPI - General Adult General Chief complaint: Extremity Injury, Lower Stated complaint: Leg & Feet Issues Related Data Home Medications ?Medication ?Instructions ?Recorded ?Confirmed lactulose 10 gram/15 mL oral 30 ml PO TID 02/01/25 03/03/25 solution omeprazole 40 mg capsule,delayed 40 mg PO DAILY@0630 02/01/25 03/03/25 release Previous Rx's ?Medication ?Instructions ?Recorded acetaminophen 325 mg tablet 975 mg (3 x 325 mg) PO Q6H PRN 12/17/24 Pain, Mild 1-3,Fever,Headache #30 tabs magnesium oxide 400 mg (241.3 mg 400 mg PO DAILY #30 tabs 12/17/24 magnesium) tablet sodium chloride 0.65 % nasal spray 1 spray intranasal Q1H PRN Dryness 12/17/24 aerosol (Deep Sea Nasal) #44 mL sucralfate 1 gram tablet (Carafate) 1 g PO BID #60 tabs 12/17/24 folic acid 1 mg tablet 1 mg PO DAILY #90 tabs 02/04/25 thiamine mononitrate (vit B1) 100 100 mg PO DAILY #90 tabs 02/04/ mg tablet spironolactone 25 mg tablet 25 mg PO DAILY #90 tabs 02/13/25 Allergies Allergy/AdvReac Type Severity Reaction Status Date / Time No Known Allergies (No Known Allergy Verified 05/13/25 19:16 Allergies*) [facility] Past Medical History Medical History CHF (congestive heart failure) Alcohol use disorder Alcohol abuse Acute hypoxemic respiratory failure Anemia Pneumonia Alcohol withdrawal syndrome Pancytopenia Alcohol abuse Thrombocytopenia Esophageal varices Acute on chronic anemia Alcoholic liver disease Aspiration pneumonia Thrombocytopenia Malnutrition CHF (congestive heart failure) Anemia Hypomagnesemia Cirrhosis Thrombocytopenia Acute on chronic anemia CHF (congestive heart failure) Anemia Alcohol abuse Surgical History No history of previous surgery Social History Social History Household Members: None Household Members Other:: homeless Housing: Homeless Housing Other:: Homeless [facility] Do you presently have visiting nurse or other home services: No Unable to assess alcohol history related to: Refusing to respond Alcohol intake: current Alcohol intake frequency: 3 or more drinks per day Alcohol type: beer and hard liquor Comment: 1 assist to bathroom Patient Tobacco Use Status: Former Tobacco user Tobacco use type: Cigarette Second Hand Smoke Exposure: No Advance Directives: Yes Advance Directives on File: Yes Advance Directives Date on File: 07/13/23 Do you have a plan to hurt others: No Plan service: No Physical Exam ED Vital Signs: Vital Signs - 24 hr 05/05/25 14:01 Temperature 99.0 F Pulse Rate 18 L Respiratory Rate 18 Blood Pressure 119/51 L Pulse Oximetry 89 L Oxygen Delivery Method Room Air BMI result Body Mass Index 19.7 Course Course Course Narrative: This is an RME: Additional HPI, ROS, PE not included below will be deferred to primary provider. RME assessment and note performed by: Brooke Oro PA-C This is a 55 year old male with past medical history of CHF, hypoxia, ETOH use disorder with concerns of left lower leg swelling. States his last drink was this morning when he woke up. Severe nonpitting edema noted to his shins, worsening on the left. No calf tenderness. He states he has been outdoors all morning. He was placed on 2 L nasal cannula as he was hypoxic at 88%. Plan: Labs, CXR, further ER eval needed Reevaluation(s) Reevaluation #1: Patient left without completing treatment. Medical Decision Making Lab Data 05/05/25 14:27 05/05/25 14:27 Labs: Lab Results 05/05/25 Range/Units 14:27 WBC 3.9 L (4.8-10.8) X10*3/uL RBC 3.62 L (4.60-5.80) X10*6/uL Hgb 10.9 L (14.0-18.0) g/dl Hct 33.4 L (42.0-52.0) % MCV 92.3 (80.0-98.0) fL MCH 30.1 (27.0-33.0) pg MCHC 32.6 (31.0-36.0) g/dl RDW 18.6 H (11.0-16.0) % Plt Count 56 L D (160-400) X10*3/uL MPV 11.2 (9.4-12.4) fL Immature Gran % (Auto) 0.3 (0.0-0.4) % Neut % (Auto) 59.5 (45-73) % Lymph % (Auto) 26.9 (20-40) % [place] % (Auto) 11.0 (2-11) % Eos % (Auto) 1.3 (0-4) % Baso % (Auto) 1.0 (0-2) % Lymph # (Auto) 1.1 L (1.2-4.9) X10*3/uL [place] # (Auto) 0.4 (0.1-1.2) X10*3/uL Eos # (Auto) 0.1 (0.0-0.4) X10*3/uL Baso # (Auto) 0.0 (0.0-0.2) X10*3/uL Abs Immat Gran (auto) 0.01 (0.00-0.03) X10*3/uL Absolute Neuts (auto) 2.3 (2.0-8.3) x10*3/uL Absolute Nucleated RBC 0.000 (0.0-0.012) X10*3/uL Nucleated RBC % (auto) 0.0 (0.0-0.2) /100WBC Sodium 138 (135-145) mmol/L Potassium 4.0 (3.3-5.1) mmol/L Chloride 111 H (96-108) mmol/L Carbon Dioxide 17 L (22-29) mmol/L Anion Gap 14 (12-20) BUN 11 (9-16) mg/dL Creatinine 0.89 (0.5-1.4) mg/dL Estim Creat Clear Calc 72.7 Estimated GFR > 60 Random Glucose 128 H (60-115) mg/dL Calcium 9.0 D (8.4-10.2) mg/dL Magnesium 1.9 (1.6-2.6) mg/dL Total Bilirubin 1.0 (0.0-1.0) mg/dL Direct Bilirubin 0.4 (0.0-0.5) mg/dL AST 49 H (5-37) U/L ALT 14 (0-40) U/L Alkaline Phosphatase 159 H (39-117) U/L Total Creatine Kinase 93 (38-174) U/L B-Natriuretic Peptide 42 (<100) pg/mL Total Protein 8.1 H (6.5-8.0) g/dL Albumin 3.7 (3.5-5.0) g/dL Discharge Plan Discharge Clinical Impression: Leg pain Patient Disposition: Left W/O Completing Treatment Prescriptions: No Action sucralfate [Carafate] 1 gram tablet 1 g PO BID Qty: 60 0RF acetaminophen 325 mg Tablet 975 mg PO Q6H PRN (Reason: Pain, Mild 1-3,Fever,Headache) Qty: 30 0RF magnesium oxide 400 mg (241.3 mg magnesium) Tablet 400 mg PO DAILY Qty: 30 0RF Deep Sea Nasal 0.65 % Aerosol,[place] 1 spray intranasal Q1H PRN (Reason: Dryness) Qty: 44 0RF spironolactone 25 mg tablet 25 mg PO DAILY Qty: 90 0RF lactulose 10 gram/15 mL solution 30 ml PO TID omeprazole 40 mg capsule,delayed release(DR/EC) 40 mg PO DAILY@0630 folic acid 1 mg Tablet 1 mg PO DAILY Qty: 90 0RF thiamine mononitrate (vit B1) 100 mg Tablet 100 mg PO DAILY Qty: 90 0RF Discharge Date/Time: 05/05/25 16:41
[2025-05-05 14:31] LABS: MANUAL DIFF FLAG NO
[2025-05-05 14:34] LABS: Eosinophils Absolute Auto 0.1 X10*3/uL (0.0-0.4); Eosinophils Percent Auto 1.3 % (0-4); Hematocrit 33.4 % (42.0-52.0); Hemoglobin 10.9 g/dl (14.0-18.0); Imm Gran Abs Auto 0.01 X10*3/uL (0.00-0.03); Imm Gran Pct Auto 0.3 % (0.0-0.4); Lymphocytes Absolute Auto 1.1 X10*3/uL (1.2-4.9); Lymphocytes Percent Auto 26.9 % (20-40); Mean Corpuscular HGB Conc 32.6 g/dl (31.0-36.0); Mean Corpuscular Hemoglobin 30.1 pg (27.0-33.0); Mean Corpuscular Volume 92.3 fL (80.0-98.0); Mean Platelet Volume 11.2 fL (9.4-12.4); Monocytes Absolute Auto 0.4 X10*3/uL (0.1-1.2); Neutrophils Absolute Auto 2.3 x10*3/uL (2.0-8.3); Neutrophils Percent Auto 59.5 % (45-73); Red Blood Count 3.62 X10*6/uL (4.60-5.80); Red Cell Distribution Width 18.6 % (11.0-16.0); White Blood Count 3.9 X10*3/uL (4.8-10.8)
[2025-05-05 14:36] LABS: Platelet Count 56 X10*3/uL (160-400)
[2025-05-05 14:51] LABS: Alanine Aminotransferase 14 U/L (0-40); Albumin Level 3.7 g/dL (3.5-5.0); Alkaline Phosphatase 159 U/L (39-117); Anion Gap 14 (12-20); Aspartate Amino Transferase 49 U/L (5-37); Bilirubin Direct 0.4 mg/dL (0.0-0.5); Blood Urea Nitrogen 11 mg/dL (9-16); Carbon Dioxide 17 mmol/L (22-29); Chloride 111 mmol/L (96-108); Creatinine Clr Calc Pharmacy 72.7; Estimated Glomerular Filt Rate > 60; Glucose Random 128 mg/dL (60-115); Magnesium 1.9 mg/dL (1.6-2.6); Sodium 138 mmol/L (135-145); Total Protein 8.1 g/dL (6.5-8.0)
[2025-05-05 14:56] LABS: B Type Natriuretic Peptide 42 pg/mL (<100)
--- OUTSIDE RECORDS SUMMARY | 2025-05-05 16:58 | XMS_ITS | Clinical Summary ---
Author Organization [employer] Address [address] [facility] [address] [place] [address] Care Team Providers Care Assessment Clinician Name Role Phone Missy Milner RN Unavailable [phone] Conor Vdial Unavailable Medications bisacodyl (Dulcolax) 10 MG suppository Insert [...] Patient presented with altered mental status from [facility] where he appeared more lethargic than [...] Encounters Date Type Department Care Team Description 05/05/2025 Orders Only GENERIC EXTERNAL DATA DEPARTMENT Provider, Generic External Data 05/02/2025 Patient Outreach [facility] MED & PEDS [address] [place] [address] Missy Milner RN 05/02/2025 Patient Outreach [facility] [address] [place], [place] [phone] Missy Milner RN 05/02/2025 Telephone [facility] MEDICINE [address] [place] [phone] Misti Murry MD NEW PT APPT 05/02/2025 Patient Outreach [address] [address] Misti Murry MD Care Coordination ([facility]/Liz Vidal TC #3 initial outreach attempt, appt reminder_lvm) 04/30/[address] [address] Misti Murry MD CHART PREP 04/30/2025 Orders Only GENERIC EXTERNAL DATA DEPARTMENT Provider, Generic External Data 04/28/2025 Patient Outreach [address] [address] Misti Murry MD Care Coordination ([facility]/AMY Vidal TC #2 initial outreach attempt_lvm ) 04/24/2025 Patient Outreach [facility] MEDICINE [address] [place] [phone] Misti Murry MD 04/23/2025 Results Follow-Up [address] [address] Misti Murry MD XR Chest 2 Views 04/23/2025 Patient Outreach [address] [address] Misti Murry MD Pre-visit Planning ((Unable to reach for PVP screening, LVM) to be completed in office) 04/23/2025 Patient Outreach [address] [address] Misti Murry MD Care Coordination ([facility]/W Conor Vidal, Initial outreach attempt_lvm ) 04/23/2025 Patient Outreach [address] [address] Misti Murry MD Care Coordination ([facility] Conor Vidal, Chart review ) 04/23/2025 Patient Outreach [facility] MED [facility]EDS [address] [place] [address] Misti Murry MD Care Coordination ([facility] chart review) 04/23/2025 Patient Outreach [address] [address] Misti Murry MD 04/22/2025 Telephone [facility] WALK-IN CENTER [address] [place] [address] Chinedu Brenner MD 04/21/2025 Telephone [facility] [address] [place] [address] Chinedu Brenner MD 04/19/2025 Orders Only [facility] External Provider, [facility] 04/09/2025 Telephone [facility] MEDICINE [address] [place] [address] Misti Murry MD Telephone Call 03/31/2025 Patient Outreach [facility] MED [facility]ED[facility] [address] [place] [address] Misti Murry MD Care Coordination (Care Coordination) 03/31/2025 Patient Outreach [facility] MED [facility] [address] [place] [address] Misti Murry MD 03/31/2025 Patient Outreach [facility] [address] [place] [address] Misti Murry MD 03/27/2025 Patient Outreach [facility] [address] [place] [address] Misti Murry MD 03/14/2025 Patient Outreach [facility] [address] [place] [address] Misti Murry MD Care Coordination (C3/CM Outreach) 03/07/2025 Patient Outreach [facility] [address] [place] [address] Misti Murry MD 03/03/2025 Orders Only GENERIC EXTERNAL DATA DEPARTMENT Provider, Generic External Data 02/26/2025 Orders Only GENERIC EXTERNAL DATA DEPARTMENT Provider, Generic External Data 02/21/2025 Orders Only GENERIC EXTERNAL DATA DEPARTMENT Provider, Generic External Data 02/21/2025 Patient Outreach [address] [address] Santosh Daley MD Care Coordination (C3/CM Outreach) 02/19/2025 Patient Outreach [facility] MED [facility]S [address] [place] [address] Missy Milner RN 02/13/2025 Patient Outreach [address] [address] Misti Murry MD Care Coordination (Outreach) 02/11/2025 Orders Only [facility] External Provider, [facility] 02/10/2025 Orders Only GENERIC EXTERNAL DATA DEPARTMENT Provider, Generic External Data 02/08/2025 Orders Only GENERIC EXTERNAL DATA DEPARTMENT Provider, Generic External Data 02/07/2025 Orders Only GENERIC EXTERNAL DATA DEPARTMENT Provider, Generic External Data 02/07/2025 Patient Outreach [address] [address] Misti Murry MD Care Coordination (C3/CM Outreach) 02/06/2025 Orders Only GENERIC EXTERNAL DATA DEPARTMENT Provider, Generic External Data 02/05/2025 Patient Outreach [address] [address] Santosh Daley MD Care Coordination (C3/CM Chart Review) 02/05/2025 Patient Outreach [facility] MED & PEDS [address] [place] [address] Missy Milner RN Care Coordination (C3CM chart review) 02/05/2025 Patient Outreach [facility] MEDICINE [address] [place] [address] Santosh Daley MD from Last 3 Months Immunizations Immunization Administration Dates Next Due Lucy SARS-CoV-2 Vaccination [...] Panel 1970 SDOH Screening 1970 Sigmoidoscopy 1970 Disability Screening 1970 Alcohol/Substance Use Screening 1981 Tobacco Screening [...] patient's age to complete this topic Meningococcal B Vaccine Aged Out No l onger eligible based on patient's age to complete [...] Procedure Name Priority Date/Time Associated Diagnosis Comments B TYPE NATRIURETIC PEPTIDE (BNP) Routine 05/05/2025 2:27 PM EDT CREATINE KINASE, TOTAL Routine 2:27 PM EDT MAGNESIUM Routine 05/05/2025 2:27 PM EDT BASIC METABOLIC PANEL Routine 05/05/2025 2:27 PM EDT HEPATIC FUNCTION PANEL Routine 2:27 PM EDT CBC WITH AUTO DIFFERENTIAL Routine 05/05/2025 2:27 PM EDT XR CHEST 2 VIEWS Routine 05/05/2025 1:51 PM EDT SED RATE BY MODIFIED WESTERGREN Routine 04/30/2025 9:19 AM EDT COMPREHENSIVE METABOLIC PANEL Routine 04/30/2025 9:19 AM EDT CBC WITH AUTO DIFFERENTIAL Routine 04/30/2025 9:19 AM EDT BLOOD CULTURE (SECOND) Routine 9:19 AM EDT BLOOD CULTURE (FIRST) Routine 04/30/2025 9:19 AM EDT XR CHEST 2 VIEWS Routine 04/30/2025 8:05 AM EDT GLUCOSE, WHOLE BLOOD Routine 04/19/2025 7:43 PM EDT XR CHEST 2 VIEWS Routine 04/19/2025 9:35 AM EDT XR CHEST 1 VIEW Routine 03/03/2025 8:10 [...] AUTO DIFFERENTIAL Routine 02/06/2025 12:39 AM EDT from Last 3 Months Results * (ABNORMAL) CBC auto differential (05/05/2025 2:27 PM EDT) Only the most recent of10 resultswithin the time period is included. White Blood Count 3.9(L) 4.8 - 10.8 X10*3/uL [facility] Red Blood Count 3.62(L) 4.60 - 5.80 X10*6/uL [facility] Hemoglobin 10.9(L) 14.0 - 18.0 g/dl [facility] Hematocrit 33.4(L) 42.0 - 52.0 % [facility] Mean Corpuscular Volume 92.3 80.0 - 98.0 fL [facility] Mean Corpuscular Hemoglobin 30.1 27.0 - 33.0 pg [facility] Mean Corpuscular HGB Conc 32.6 31.0 - 36.0 g/dl [facility] Red Cell Distribution Width 18.6(H) 11.0 - 16.0 % [facility] Platelet Count 56(L) 160 - 400 X10*3/uL [facility] Mean Platelet Volume 11.2 9.4 - 12.4 fL [facility] Neutrophils Percent Auto 59.5 45 - 73 % [facility] Imm Gran Pct Auto 0.3 0.0 - 0.4 % [facility] Lymphocytes Percent Auto 26.9 20 - 40 % [facility] Monocytes Percent Auto 11.0 2 - 11 % [facility] Eosinophils Percent Auto 1.3 0 - 4 % [facility] Basophils Percent Auto 1.0 0 - 2 % [facility] NRBC Pct Auto 0.0 0.0 - 0.2 /100WBC [facility] Neutrophils Absolute Auto 2.3 2.0 - 8.3 x10*3/uL [facility] Imm Gran Abs Auto 0.01 0.00 - 0.03 X10*3/uL [facility] Lymphocytes Absolute Auto 1.1(L) 1.2 - 4.9 X10*3/uL [facility] Monocytes Absolute Auto 0.4 0.1 - 1.2 X10*3/uL [facility] Eosinophils Absolute Auto 0.1 0.0 - 0.4 X10*3/uL [facility] Basophils Absolute Auto 0.0 0.0 - 0.2 X10*3/uL [facility] NRBC Abs Auto 0.000 0.0 - 0.012 X10*3/uL [facility] 05/05/2025 2:27 PM EDT 05/05/2025 2:30 PM EDT us Generic External Data Provider LAB BLOOD ORDERAB LES Final Result Performing Organization Address [facility] Co de Phone Number [facility] [address] [place] [phone] * B Type Natriuretic Peptide (BNP) (05/05/2025 2:27 PM EDT) Only the most recent of3 resultswithin the time period is included. B Type Natriuretic Peptide 42 <100 pg/mL [facility] 05/05/2025 2:27 PM EDT 05/05/2025 2:30 PM EDT us Generic External Data Provider LAB BLOOD ORDERAB LES Final Result Performing Organization Address [facility]/ZIP Co de Phone Number [facility] [address] [place] [address] [phone] * Magnesium (05/05/2025 2:27 PM EDT) Only the most recent of4 resultswithin the time period is included. Magnesium 1.9 1.6 - 2.6 mg/dL [facility] 05/05/2025 2:27 PM EDT 05/05/2025 2:30 PM EDT Generic External Data Provider LAB BLOOD ORDERAB LES Final Result Performing Organization Address City/[facility]/ZIP Co de Phone Number [facility] [address] [place] [phone] * Creatine Kinase, Total (05/05/2025 2:27 PM EDT) Pathologist [facility] Creatine Kinase Total 93 38 - 174 U/L [facility] 05/05/2025 2:27 PM EDT 05/05/2025 2:30 PM EDT Generic External Data Provider LAB BLOOD ORDERAB LES Final Result Performing Organization Address [facility] Co de Phone Number [facility] [address] [place] [phone] * (ABNORMAL) Hepatic Function Panel (05/05/2025 2:27 PM EDT) Only the most recent of4 resultswithin the time period is included. Bilirubin, Total 1.0 0.0 - 1.0 mg/dL [facility] Bilirubin, Direct 0.4 0.0 - 0.5 mg/dL [facility] Aspartate Amino Transferase 49(H) 5 - 37 U/L [facility] Alanine Aminotransferase 14 0 - 40 U/L [facility] Total Protein 8.1(H) 6.5 - 8.0 g/dL [facility] Albumin Level 3.7 3.5 - 5.0 g/dL [facility] Alkaline Phosphatase 159(H) 39 - 117 U/L [facility] 05/05/2025 2:27 PM EDT 05/05/2025 2:30 PM EDT us Generic External Data Provider LAB BLOOD ORDERAB LES Final Result Performing Organization Address City/[facility]/ZIP Co de Phone Number [facility] [address] [place] [phone] * (ABNORMAL) Basic Metabolic Panel (05/05/2025 2:27 PM EDT) Only the most recent of4 resultswithin the time period is included. Sodium 138 135 - 145 mmol/L [facility] Potassium 4.0 3.3 - 5.1 mmol/L [facility] Chloride 111(H) 96 - 108 mmol/L [facility] Carbon Dioxide 17(L) 22 - 29 mmol/L [facility] Anion Gap 14 12 - 20 [facility] Urea Nitrogen (BUN) 11 9 - 16 mg/dL [facility] Creatinine, Serum 0.89 0.5 - 1.4 mg/dL [facility] Creatinine Clr Calc Pharmacy 72.7 [facility] Comment:eGFR (calculated fro m the MDRD study equation) and eCrCl(calculated from the Cockcroft-Gault equation) are based ondifferent parameters and may not yield comparable results.If eCrCl result is absurd, please check patient'sheight/weight. Estimated Glomerular Filt Rate >60 [facility] Comment:Chronic Kidney Disea se: Estimated GFR < 60 mL/min/1.60u2Ktoxve Kidney Disease: Estimated GFR < 15 mL/min/1.73m2 Glucose 128(H) 60 - 115 mg/dL [facility] Calcium 9.0 8.4 - 10.2 mg/dL [facility] 05/05/2025 2:27 PM EDT 05/05/2025 2:30 PM EDT us Generic External Data Provider LAB BLOOD ORDERAB LES Final Result Performing Organization Address City/[facility]/ZIP Co de Phone Number [facility] [address] [place] [phone] * XR Chest 2 Views (05/05/2025 1:51 PM EDT) Only the most recent of3 resultswithin the time period is included. Anatomical Region Laterality Modality Chest Radiographic Lamar ging 05/05/2025 1:51 PM EDT Narrative 05/05/2025 3:07 PM EDT [address] [address] XRay Report Signed Patient: Charbel Delgado MR#: [id number] : 1970 Acct:[id number] Age/Sex: 55 / M ADM Date: 05/05/25 Loc: .ED Attending Dr: Ordering Physician: Brooke Meneses Date of Service: 05/05/25 Procedure(s): XR chest 2V Accession Number(s): [id number] cc: [facility]; Brooke Meneses EXAMINATION: XR CHEST CLINICAL INFORMATION: SOB COMPARISON: April 30 2025 TECHNIQUE: 2 views of the chest were obtained. FINDINGS: Borderline cardiac enlargement is noted. Subtle increased markings. There is no evidence of pleural effusion. Chronic moderate compression fracture is present in the midthoracic spine. XR/XR chest 2V IMPRESSION: Mildly prominent interstitial markings are slightly improved when compared with prior study 5 days ago. Possible improving interstitial edema. Borderline cardiomegaly. Electronically signed by: Elias Smith MD 05/05/2025 02:57 PM EDT Dictated By: Elias Smith MD Signed By: <Electronically signed by Elias Smith MD in OV> 05/05/25 1457 DD/ 1351 TD/TT: 05/05/25 1450 Medical Surgery Nurse: Procedure Note Donotuseinterpreter, Image - 05/05/[address] [address] XRay Report Signed Patient: Rod DelgadoR#: [id number] : 1970Acct:[id number] Age/Sex: 55 / MADM Date: 05/05/25 Loc: HO.ED Attending Dr: Ordering Physician: Brooke Meneses Date of Service: 05/05/25 Procedure(s): XR chest 2V Accession Number(s): [id number] cc: [facility]; Brooke Meneses EXAMINATION: XR CHEST CLINICAL INFORMATION: SOB COMPARISON: April 30 2025 TECHNIQUE: 2 views of the chest were obtained. FINDINGS: Borderline cardiac enlargement is noted. Subtle increased markings. There is no evidence of pleural effusion. Chronic moderate compression fracture is present in the midthoracic spine. XR/XR chest 2V IMPRESSION: Mildly prominent interstitial markings are slightly improved when compared with prior study 5 days ago. Possible improving interstitial edema. Borderline cardiomegaly. Electronically signed by: Elias Smith MD 05/05/2025 02:57 PM EDT RP Dictated By: Elias Smith MD Signed By: <Electronically signed by Elias Smith MD in OV> 05/05/25 1457 DD/ 1351 TD/TT: 05/05/25 1450 Medical Surgery Nurse: [facility] External Provider IMG XR PROCEDURES Final Result * Blood Culture (First) (04/30/2025 9:19 AM EDT) Blood Venous blood specimen / Unknown 04/30/2025 9:19 AM EDT 04/30/2025 9:24 AM EDT Comment:Blood Narrative [facility] - 05/05/2025 11:24 AM EDT Blood Culture (First) No growth after 5 days. Specimen Source: Blood Generic External Data Provider LAB MICROBIOLOGY - GENERAL ORDERABLES Final Result [facility] [address] [place] [phone] * Blood Culture (Second) (04/30/2025 9:19 AM EDT) Blood Venous blood specimen / Unknown 04/30/2025 9:19 AM EDT 04/30/2025 9:24 AM EDT Comment:Blood Narrative [facility] - 05/05/2025 11:24 AM EDT Blood Culture (Second) No growth after 5 days. Specimen Source: Blood Generic External Data Provider LAB MICROBIOLOGY - GENERAL ORDERABLES Final Result Performing Organization Address City/[facility]/ZIP Co de Phone Number [facility] [address] [place] [phone] * (ABNORMAL) Sed Rate by Modified Mariahren (04/30/2025 9:19 AM EDT) Erythrocyte Sedimentation Rate 26(H) 0 - 15 MM/HR [facility] Comment:Patients with polycy themia and many hemoglobin abnormalitiesmay have depressed sed rates whereas patients with anemiamay have elevated sed rates. 04/30/2025 9:19 AM EDT 04/30/2025 9:24 AM EDT Generic External Data Provider LAB BLOOD ORDERAB LES Final Result Performing Organization Address [facility]/ZIP Co de Phone Number [facility] [address] [place] [phone] * (ABNORMAL) Comprehensive Metabolic Panel (04/30/2025 9:19 AM EDT) Only the most recent of6 resultswithin the time period is included. Pathologist [facility] Sodium 141 135 - 145 mmol/L [facility] Potassium 3.8 3.3 - 5.1 mmol/L [facility] Chloride 112(H) 96 - 108 mmol/L [facility] Carbon Dioxide 19(L) 22 - 29 mmol/L [facility] Anion Gap 14 12 - 20 [facility] Urea Nitrogen (BUN) 9 9 - 16 mg/dL [facility] Creatinine, Serum 0.65 0.5 - 1.4 mg/dL [facility] Creatinine Clr Calc Pharmacy 100.3 [facility] Comment:eGFR (calculated fro m the MDRD study equation) and eCrCl(calculated from the Cockcroft-Gault equation) are based ondifferent parameters and may not yield comparable results.If eCrCl result is absurd, please check patient'sheight/weight. Estimated Glomerular Filt Rate >60 [facility] Comment:Chronic Kidney Disea se: Estimated GFR < 60 mL/min/1.46d2Hfhzud Kidney Disease: Estimated GFR < 15 mL/min/1.73m2 Glucose 84 60 - 115 mg/dL [facility] Calcium 8.2(L) 8.4 - 10.2 mg/dL [facility] Bilirubin, Total 0.8 0.0 - 1.0 mg/dL [facility] Aspartate Amino Transferase 33 5 - 37 U/L [facility] Alanine Aminotransferase 10 0 - 40 U/L [facility] Total Protein 7.0 6.5 - 8.0 g/dL [facility] Albumin Level 3.2(L) 3.5 - 5.0 g/dL [facility] Alkaline Phosphatase 138(H) 39 - 117 U/L [facility] 04/30/2025 9:19 AM EDT 04/30/2025 9:24 AM EDT us Generic External Data Provider LAB BLOOD ORDERAB LES Final Result Performing Organization Address [facility]/ZIP Co de Phone Number [facility] [address] [place] [phone] * (ABNORMAL) Glucose, Whole Blood (04/19/2025 7:43 PM EDT) Glucose, Whole Blood 122(H) 60 - 115 mg/dL [facility] Comment:METER #: [id number] 04/19/2025 7:43 PM EDT 04/19/2025 7:47 PM EDT us Generic External Data Provider LAB BLOOD ORDERAB LES Final Result [facility] [address] [place] [phone] * XR Chest 1 View (03/03/2025 8:10 AM EDT) Only the most recent of2 resultswithin the time period is included. Anatomical Region Laterality Modality Chest Radiographic Lamar ging 03/03/2025 8:10 AM EDT Narrative 03/03/2025 8:12 AM EDT [place] [address] XRay Report Signed Patient: Charbel Delgado MR#: [id number] : 1970 Acct:[id number] Age/Sex: 55 / M ADM Date: 03/03/25 Loc: .ED Attending Dr: Ordering Physician: Jesus Manuel Chinchilla MD Date of Service: 03/03/25 Procedure(s): XR chest 1V Accession Number(s): [id number] cc: [facility]; Jesus Manuel Chinchilla MD CLINICAL HISTORY: sob [...] 03/03/25 0811 DD/ 0810 TD/TT: 03/03/25 0810 Medical Surgery Nurse: Procedure Note Donotuseinterpreter, Image - 03/03/[address] [address] XRay Report Signed Patient: Rod DelgadoR#: [id number] : 1970Acct:[id number] Age/Sex: 55 / MADM Date: 03/03/25 Loc: HO.ED Attending Dr: Ordering Physician: Jesus Manuel Chinchilla MD Date of Service: 03/03/25 Procedure(s): XR chest 1V Accession Number(s): [id number] cc: [facility]; Jesus Manuel Chinchilla MD CLINICAL HISTORY: sob [...] signed by Deepak Omalley MD in OV> 03/03/2511 DD/ 9 TD/TT: 03/03/25809 Medical Surgery Nurse: us [facility] External Provider IMG XR PROCEDURES Edited Result - Final * Ethanol (03/03/2025 5:47 AM EDT) Only the most recent of7 resultswithin the time period is included. ETHANOL (MG/DL) IN SER/PLAS 207 mg/dL [facility] Comment:Serum/plasma ethanol results are to be used formedical/treatment purposes only. 03/03/2025 5:47 AM EDT 03/03/2025 5:50 AM EDT Generic External Data Provider LAB BLOOD ORDERAB LES Final Result [facility] [address] [place] [phone] * (ABNORMAL) Partial Thromboplastin Time, Activated (APTT) (03/03/2025 5:47 AM EDT) Partial Thromboplastin Time 38.1(H) 26.0 - 36.8 SEC [facility] Comment:For information rega rding the monitoring of direct thrombininhibitors, please refer to Pharmacy. 03/03/2025 5:47 AM EDT 03/03/2025 5:50 AM EDT Generic External Data Provider LAB BLOOD ORDERAB LES Final Result Performing Organization Address City/[facility]/ZIP Co de Phone Number [facility] [address] [place] [phone] * (ABNORMAL) Prothrombin Time-INR (03/03/2025 5:47 AM EDT) Only the most recent of3 resultswithin the time period is included. Prothrombin Time 16.3(H) 10.9 - 12.4 SEC [facility] INTERNATIONAL NORM RATIO 1.4(H) 0.9 - 1.1 [facility] [...] ORDERAB LES Final Result Performing Organization Address City/[facility]/ZIP Co de Phone Number [facility] [address] [place] [phone] * Acetaminophen level (02/26/2025 8:24 AM EDT) Acetaminophen LAB <3 <30 mcg/mL [facility] 02/26/2025 8:24 AM EDT 02/26/2025 10:28 PM EDT us Generic External Data Provider LAB BLOOD ORDERAB LES Final Result [facility] [address] [place] [phone] * (ABNORMAL) Salicylate (02/26/2025 8:24 AM EDT) Salicylate <5.0(L) 15 - 30 mg/dL [facility] 02/26/2025 8:24 AM EDT 02/26/2025 10:28 PM EDT [employer] External Data Provider LAB BLOOD ORDERAB LES Final Result Performing Organization Address [facility] Co de Phone Number [facility] [address] [place] [phone] * (ABNORMAL) Drug Monitoring, Panel 1, [...] Final Result [facility] [address] [place] [phone] * (ABNORMAL) VENOUS BLOOD GAS (02/08/2025 6:41 PM EDT) Only the most recent of2 resultswithin the time period is included. VBG pH 7.45(H) 7.32 - 7.43 [facility] Comment:METER #: [id number] additional_comment: Cb nsl VBG PCO2 31 mmHg [facility] Comment:METER #: [id number] additional_comment: Cb nsl VBG PO2 43 mmHg [facility] Comment:METER #: [id number] additional_comment: Cb nsl VBG Base Excess -1.0 mmol/L [facility] Comment:METER #: [id number] additional_comment: Cb nsl VBG HCO3 22 22 - 26 mmol/L [facility] Comment:METER #: [id number] additional_comment: Cb nsl O2 Sat, Demetrio 66.0 % [facility] Comment:METER #: [id number] additional_comment: Cb nsl 02/08/2025 6:41 PM EDT 02/08/2025 6:44 PM EDT us Generic External Data Provider LAB BLOOD ORDERAB LES Final Result Performing Organization Address [facility] Co de Phone Number [facility] [address] [place] [phone] * (ABNORMAL) Lactic Acid (02/08/2025 6:30 PM EDT) Lactic Acid 2.9(HH) 0.5 - 2.0 mmol/L [facility] Comment:Critical value for t est(s): LACTIC Results called to gildardo back by: PRACHI Person calling: KRISTIEElroy Date: 02/08/25Time: 1857 02/08/2025 6:30 PM EDT 02/08/2025 6:37 PM EDT us Generic External Data Provider LAB BLOOD ORDERAB LES Final Result Performing Organization Address [facility] Co de Phone Number [facility] [address] [place] [phone] * CTA Chest PE Protocal (02/08/2025 4:12 AM EDT) Anatomical Region Laterality Modality Body, Chest Computed Tomogra phy 02/08/2025 4:12 AM EDT Narrative 02/08/2025 4:15 AM EDT [address] [address] [address] Scan Report Signed Patient: Delgado,Charbel MR#: [id number] : 1970 Acct:[id number] Age/Sex: 55 / M ADM Date: 02/07/25 Loc: HO.ED Attending Dr: Ordering Physician: Alexandria Sweeney MD Date of Service: 02/08/25 Procedure(s): CT angio chest PE protocol Accession Number(s): [id number] cc: [facility]; Alexandria Sweeney MD Report Number: [id number]: Total DLP = 260.00 mGy-cm CLINICAL HISTORY: [...] in OV> 02/08/25412 DD/ 1 TD/TT: 02/08/25411 Medical Surgery Nurse: Procedure Note Donotuseinterpreter, Image - 02/08/[address] [place] [address] CT Scan Report Signed Patient: Rod DelgadoR#: [id number] : 1970Acct:[id number] Age/Sex: 55 / MADM Date: 02/07/25 Loc: HO.ED Attending Dr: Ordering Physician: Alexandria Sweeney MD Date of Service: 02/08/25 Procedure(s): CT angio chest PE protocol Accession Number(s): [id number] cc: [facility]; Alexandria Sweeney MD Report Number: [id number]: Total DLP = 260.00 mGy-cm CLINICAL HISTORY: [...] OV> 02/08/25 0413 DD/ 1 TD/TT: 02/08/25411 Medical Surgery Nurse: us [facility] External Provider IMG CT PROCEDURES Edited Result - Final * CT Head w/o Contrast (02/08/2025 4:05 AM EDT) Anatomical Region Laterality Modality Head, Neck Computed Tomogra phy 02/08/2025 4:05 AM EDT Narrative 02/08/2025 4:07 AM EDT [address] [place] [address] CT Scan Report Signed Patient: Charbel Delgado MR#: [id number] : 1970 Acct:[id number] Age/Sex: 55 / M ADM Date: 02/07/25 Loc: HO.ED Attending Dr: Ordering Physician: Alexandria Sweeney MD Date of Service: 02/08/25 Procedure(s): CT head/brain wo IV con Accession Number(s): [id number] cc: [facility]; Alexandria Sweeney MD Report Number: [id number]: Total DLP = 618.00 mGy-cm CLINICAL HISTORY: [...] in OV> 02/08/25405 DD/ 4 TD/TT: 02/08/25404 Medical Surgery Nurse: Procedure Note Donotuseinterpreter, Image - 02/08/[address] [address] [address] Scan Report Signed Patient: Rod DelgadoR#: [id number] : 1970Acct:[id number] Age/Sex: 55 / MADM Date: 02/07/25 Loc: .ED Attending Dr: Ordering Physician: Alexandria Sweeney MD Date of Service: 02/08/25 Procedure(s): CT head/brain wo IV con Accession Number(s): [id number] cc: [facility]; Alexandria Sweeney MD Report Number: [id number]: Total DLP = 618.00 mGy-cm CLINICAL HISTORY: [...] in OV> 02/08/25405 DD/ 4 TD/TT: 02/08/25404 Medical Surgery Nurse: [facility] External Provider IMG CT PROCEDURES Edited Result - Final * High Sensitivity Troponin I (02/08/2025 1:52 AM EDT) Pathologist [facility] TROPONIN I HIGH SENSITIVITY <2.7 <3.5 - [...] Final Result [facility] [address] [place] [phone] * SARS-CoV-2 RNA, Influenza A/B, and RSV RNA, Ql NAAT (02/08/2025 1:52 AM EDT) Pathologist [facility] Influenza A PCR NEGATIVE Negative [facility] Influenza B PCR NEGATIVE Negative [facility] Resp Syncy Virus RNA Qual PCR NEGATIVE Negative [facility] SARS COV2 PCR NEGATIVE Negative [facility] [...] use by authorized laboratories.Testing performed on the iNeed GeneXpert utilizingreal-time RT-PCR.All SARS CoV2 and positive influenza A/B results arereported to [facility]. 02/08/2025 1:52 AM EDT 02/08/2025 1:55 AM EDT Generic External Data Provider LAB MICROBIOLOGY - GENERAL ORDERABLES Final Result Performing Organization Address [facility]/ZIP Co de Phone Number [facility] [address] [place] [phone] * (ABNORMAL) Ammonia, Plasma (02/08/2025 1:52 AM EDT) Only the most recent of2 resultswithin the time period is included. [facility] Ammonia (P) 65(H) 13 - 55 umol/L [facility] 02/08/2025 1:52 AM EDT 02/08/2025 2:03 AM EDT Generic External Data Provider LAB BLOOD ORDERAB LES Final Result Performing Organization Address [facility]/ZIP Co de Phone Number [facility] [address] [place] [phone] * Lipase (02/06/2025 12:39 AM EDT) Pathologist [facility] Lipase 24 8 - 78 U/L [facility] 02/06/2025 12:3 9 AM EDT 02/06/2025 12:45 AM EDT us Generic External Data Provider LAB BLOOD ORDERAB LES Final Result [facility] [address] [place] [phone] from Last 3 Months Insurance [facility] C3 Care Teams Assessment Clinician Relationship Specialty Start Date End Date Missy Milner RN [address] [place] [phone] Registered Nurse Family Medicine 04/23/25 Conor Vidal 04/23/25
== END 2025-05-05 16:41 | disposition left against medical advice (07) ==
PROVIDERS: Physician Assistant Medical; Emergency Provider Emergency Medicine
DX: R60.0 Localized edema (principal); M79.89 Other specified soft tissue disorders; R06.02 Shortness of breath; Z87.891 Personal history of nicotine dependence; Z79.899 Other long term (current) drug therapy
CPT/HCPCS: 36415; 71046; 80048; 80076; 82550; 83735; 83880; 85025; 99281; 99283

== ENCOUNTER → 2025-05-05 14:07 | Outpatient (BNV) | payer MEDICAID, SELFPAY | PROVIDERS: Visit Provider Radiology Diagnostic Radiology | DX: R06.02 Shortness of breath (principal) | CPT/HCPCS: 71046 ==

== ENCOUNTER 2025-05-13 18:59 | Emergency (ER) | payer MEDICAID, SELFPAY ==
--- NOTE | ~2025-05-13 | US_ITS ---
CLINICAL HISTORY: Swelling; Pain Venous duplex ultrasound left lower extremity Comparison: None provided Findings: The visualized deep veins are fully compressible with normal Doppler color flow and spectral tracings. No popliteal cyst. IMPRESSION: 1. Negative for left lower extremity deep vein thrombosis. This document has been electronically signed by: Denae Harman MD on 05/13/2025 22:50:03
[2025-05-13 19:14] VITALS: BP 112/67; PULSE 74; RESP 16; TEMP 36.1; O2SAT 92; BMI 20.2
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
--- OUTSIDE RECORDS SUMMARY | 2025-05-13 21:22 | XMS_ITS | Data Portability ---
Author Organization [facility], Main Office Address [address] [address] [address] [place] [address] Care Team Providers Care Porter Head Name Role Phone [facility] ([facility] OTHER Assessment Encounter Date [...] Name and Address Organization Details Recorded Time Harmful pattern of use of alcohol 20806023 Active 2022 HALEY WYATT [address], [address], [place], [address], [facility] 3 16:10:20 Alcoholic cirrhosis 549117502 Active 2022 HALEY WYATT [address] [place] [address], [address], [place], [address], [facility] 3 16:10:32 Anemia 412032682 Active 2022 HALEY WYATT [address] [place] [address], [address], [place], [address], [facility] 3 16:10:45 Hepatic encephalop athy 18215273 Active 2022 HALEY WYATT [address], [address], [place], [address], [facility] 3 16:11:37 Acute respirator y failure 14343640 Active 2022 HALEY WYATT [address] [place] [address], [address], [place], [address], [facility] 3 16:12:23 Laboratory finding abnormal Active 2022 hypokalemi a hypomagnes ium pancytopen ua repleted in acute care. mag oxide 400 mg BID HALEY WYATT [address], [address], [place], [address], [facility] 3 16:40:30 Congestive heart failure 67826615 Active 2022 HALEY WYATT [address], [address], [place], [address], [facility] 3 16:25:07 Homeless 20768836 Active 2022 HALEY WYATT [address], [address], [place], [address], [facility] 3 16:55:00 Pancytopen ia 082658136 Active 2022 HALEY WYATT [address], [address], [place], [address], [facility] 3 21:48:09 Esophageal varices 12517463 Active 2022 HALEY WYATT [address], [address], [place], [address], [facility] 3 16:19:34 Problem Notes None recorded. [...] mm[Hg] 70 mm[Hg] Lis Oconnell MD [address], [address], [place], [address], [facility] 4 08:21:06 Date Recorded Heart rate Respiratory rate Body temperature Oxygen saturation Oxygen saturation in Arterial blood by Pulse oximetry Systolic blood pressure Diastolic blood pressure Provider Name and Address Organization Details Last Updated DateTime 4 67 /min 16 /min 97.6 [degF] 95 % 95 % 107 mm[Hg] 66 mm[Hg] BRADY HOGAN NP [address], [address], [place], [address], [facility] 4 10:20:23 Social History Question Answer Notes LastModified by Organizat ion Details LastModified Time Tobacco Smoking Status Former Smoker HALEY WYATT [address], [address], [place], [address], [facility] 09/12/2023 16:57:06 Do You Have An Advance Directive? Yes Information not available 09/12/2023 What Is Your Level Of Caffeine Consumption? None Information not available 09/12/2023 What Is Your Code Status? Full Code Information not available 09/12/2023 Where Do You Live? Other Homeless Information not available 09/12/2023 Legal Guardian? No HCP/not Invoked Information not available 09/12/2023 Do You Have A Medical Power Of Flight Data Technician? No HCP/brother Information not available 09/12/2023 What Was The Date Of Your Most Recent Tobacco Screening? 09/12/2023 Information not available 09/12/2023 Do You Have An Out Of Hospital DNR? No Information not available 09/12/2023 Have You Ever Been Counseled For Unhealthy Alcohol Use? Yes Information not available 09/12/2023 What Is Your Relationship Status? Single Information not available 09/12/2023 Has Tobacco Cessation Counseling Been Provided? No Information not available 09/12/2023 How Many Years Have You Smoked Tobacco? 12 Information not available 09/12/2023 Sex: Unknown Functional Status Question Answer Note LastModified by Organizat ion Details LastModified Time How many times per week do you consume alcohol? 5-7 times per week Information not available 09/12/2023 Do you use any illicit or recreational drugs? No Information not available 09/12/2023 Do you or have you ever used any other forms of tobacco or nicotine? No Information not available 09/12/2023 What is your level of alcohol consumption? Moderate Information not available 09/12/2023 Mental Status None recorded. Family History Nothing Reported. Medical History No medical history recorded. Immunizations Vaccine Type Date Status Note Provider Nam e and Address Organization Details Recorded Time COVID-19, mRNA, LNP-S, bivalent, PF, 30 mcg/0.3 mL dose 3 completed Mojgan jain [facility] 11/10/2023 13:12:58 Tdap 1 completed Mojgan jain [facility] 03/01/2024 11:01:29 Td (adult), 5 Lf tetanus toxoid, preservative free, adsorbed 7 completed Mojgan jain [place] - [facility] 03/01/2024 11:06:00 Past Encounters Encounter ID Performer Location Encounter Start Date Encounter Closed Date Diagnosis/Indication Diagnosis SNOMED-CT Code Diagnosis ICD10 Code Diagnosis Note [id number] HALEY WYATT [facility] on [address] [place] [address] 09/12/2023 08:36:44 09/15/2023 08:04:55 Hepatic encephalopathy 74569303 K76.82 resolved in acute care/see hpistarted on lactuloser ifaximin 550 mg BIDlactulo se 40 g TID. Acute resp iratory failure 87565298 J96.00 with hypoxia d/t to acute on chronic heart failure-di uresed w/IV lasix resolved in acute care Anemia 209159558 D64.9 see hpiCT scan with distal esophageal varices.- EGD suspected gastric varies as source of bleedfollo w up with GI in 4 weeks for repeat EGD Congestive heart failure 13581217 I50.9 with preserved ejection fractionCT scan showed small plueral effusionCX R with bibasilar opacitiesc ontinue furosemide 20 mg BIDcontinu e spironolac tone 12.5 mg BIDlow salt diet.monit or weight Harmful pa ttern of use of alcohol 20719549 F10.10 with acute withdrawal in acute care tx with phenobarbi germania taper.decl ined recovery support in acute carethiami ne 100 mg dailyfolic acid 1 mg daily Bleeding g astric varices 06971727 I86.4 source of anemiaomep razole 40 mg dailysucra lfate 1 gm BIDcontinu e PPI and sucralfate Homeless 73584732 Z59.00 Social service refer for community resources. [id number] Lis Oconnell MD [facility] on [address] [place] [address] 09/13/2023 05:12:10 09/15/2023 08:33:31 Acute on chronic diastolic heart failure 523532607 I50.33 improved:s pironolact one 12.5 mg bidfurosem eliana 20 mg bidwill monitor Harmful pa ttern of use of alcohol 91310463 F10.10 thiamine 100 mg dailyfolic acid 1 gm dailyinter disciplina ry support for sobrietywi ll monitor and support as needed Bleeding e sophageal varices 54186634 I85.01 s/p blood transfusio ns, octeotride , banding/he mospray:om eprazole 40 mg dailysucra lfate 1 gm bidwill monitor Alcoholic cirrhosis 4200 52092 K70.31 Xifaxan 550 mg bidspirono lactone 12.5 mg bidfurosem eliana 20 mg bidwill monitor Hepatic encephalopathy 47507068 K76.82 lactulose 40 gm tidwill monitor [id number] HALEY YWATT [facility] on [address] [place] [id number] 09/18/2023 11:37:36 09/20/2023 15:12:00 Congestive heart failure 55684849 I50.9 continue furosemide 20 mg BIDcontinu e spironolac tone 12.5 mg BIDlow salt diet.monit or weight Harmful pa ttern of use of alcohol 12988828 F10.10 will consider acamprosta te 666 mg TID.thiami ne 100 mg dailyfolic acid 1 mg daily Bleeding g astric varices 54786294 I86.4 source of anemiaomep razole [address] dailysucra lfate 1 gm BIDcontinu e PPI and sucralfate Hepatic encephalopathy 95864037 K76.82 resolved in acute care/see hpistarted on lactuloser ifaximin 550 mg BIDlactulo se 40 g TID.- reports loose stool x's 1 daily. will continue to monitor for now . [id number] HALEY WYATT [facility] on [address] [place] [address] 10/06/2023 10:25:53 10/18/2023 12:16:47 Altered mental status 201298037 R41.82 see hpiconcern for hepatic encephalop athy due to hxsend to ER for further evaluation [id number] HALEY WYATT [facility] on [address] [place] [address] 10/12/2023 13:49:36 10/18/2023 15:10:16 Hepatic encephalopathy 20421174 K76.82 resolved in acute care/see hpiimaging with no acute processCon tinue lactulose, rifaximin, Lasix, spironolac toneFollow -up outpatient GI Congestive heart failure 22178839 I50.9 continue furosemide 20 mg BIDcontinu e spironolac tone 12.5 mg BIDlow salt diet.monit or weight Pancytopenia 084396536 D 61.818 wbc 3.41-Hgb 7.3-HCT 23.2Possib ly due to alcohol abuseWill continue to monitor CBC [id number] HALEY WYATT [facility] on [address] [place] [address] 10/16/2023 13:03:21 11/22/2023 15:10:28 Hepatic encephalopathy 99297341 K76.82 resolved in acute care/see hpiimaging with no acute processCon tinue lactulose, rifaximin, Lasix, spironolac toneFollow -up outpatient GI Congestive heart failure 25874023 I50.9 continue furosemide 20 mg BIDcontinu e spironolac tone 12.5 mg BIDlow salt diet.monit or weight Pancytopenia 873711382 D 61.818 see aboveimpro kiki hgb 8.8- Plt 68Possibly due to alcohol abuseWill continue to monitor CBC [id number] HALEY WYATT [facility] on [address] [place] [id number] 10/24/2023 11:18:12 11/03/2023 11:47:28 Hepatic encephalopathy 75544564 K76.82 alert and oriented x's 2 today unsure of date.resol kiki in acute care/see hpiimaging with no acute processCon tinue lactulose, rifaximin, Lasix, spironolac toneFollow -up outpatient GI Congestive heart failure 11758454 I50.9 Stablke, no reported sxcontinue furosemide 20 mg BIDcontinu e spironolac tone 12.5 mg BIDlow salt diet.monit or weight Pain of le ft shoulder joint 0003678785 0401011 M25.512 see hpixray 3 viewstylen ol 975 mg scheduledm otrin 600 mg scheduled. PT referral for pain with abduction. [id number] HALEY WYATT [facility] on [address] [place] [id number] 10/27/2023 09:08:50 11/03/2023 12:28:46 Hepatic encephalopathy 96825605 K76.82 appears to be a baseline status, however he appears disoriente d at times.Cont inue lactulose, rifaximin, Lasix, spironolac toneFollow -up outpatient GI Congestive heart failure 43857423 I50.9 Stablecont inue furosemide 20 mg BIDcontinu e spironolac tone 12.5 mg BIDlow salt diet.monit or weight Pain of le ft shoulder joint 2722961156 0751737 M25.512 Xray completed, results reviewed with patient: Mild degenerati on of the left shoulder; no acute fracture or dislocatio n. continue with:tylen ol 975 mg scheduledm otrin 600 mg scheduled. PT referral for pain with abduction. [id number] HALEY WYATT [facility] on [address] [place] [id number] 11/08/2023 08:13:22 11/22/2023 16:43:01 Daisy-Zee tear 206279232 K22.6 2 days of melena with coffee-kell und emesis on presentati on.GI consulted and performed upper endoscopy on 10/31, evidence of daisy zee tear, gastric ulcers s/p clip placement. continue PPI omeprazole 40 mg twice daily.Carv edilol started as per recommenda tions for esophageal varicesPat ient was advised to avoid NSAID Esophageal varices 16894 008 I85.00 Started on carvedilol 6.25 mg bidomepraz ole 40 mg bidsucralf ate 1 gm BID Anemia 078690390 D64.9 Hgb 6.4 on presentati on to acute careDue to upper GI bleed,Rece ived 3 units of PRBC in acute careCarved ilol started for varices [id number] HALEY WYATT [facility] on [address] [place] [id number] 11/14/2023 07:57:53 12/01/2023 10:08:54 Daisy-Zee tear 888347433 K22.6 11/14 there has been no reported couging and vomiting. 2 days of melena with coffee-kell und emesis on presentati on.GI consulted and performed upper endoscopy on 10/31, evidence of daisy zee tear, gastric ulcers s/p clip placement. continue PPI omeprazole 40 mg twice daily.Carv edilol started as per recommenda tions for esophageal varicesPat ient was advised to avoid NSAID Esophageal varices 51174 008 I85.00 stableStar forrest on carvedilol 6.25 mg bidomepraz ole 40 mg bidsucralf ate 1 gm BID Anemia 503820815 D64.9 11/14will recheck labspatien t denies excess fatigue, weakness, shortness of breathdoes not appear pale, color normal. Hgb 6.4 on presentati on to acute careDue to upper GI bleed,Rece ived 3 units of PRBC in acute careCarved ilol started for varices [id number] HALEY WYATT [facility] on [address] [place] [id number] 11/17/2023 08:07:13 12/01/2023 11:37:06 Daisy-Zee tear 006897429 K22.6 stable, There has been no new reported sx.2 days of melena with coffee-kell und emesis on presentati on.GI consulted and performed upper endoscopy on 10/31, evidence of daisy zee tear, gastric ulcers s/p clip placement. continue PPI omeprazole 40 mg twice daily.Carv edilol started as per recommenda tions for esophageal varicesPat ient was advised to avoid NSAID Esophageal varices 88583 008 I85.00 stableStar forrest on carvedilol 6.25 mg bidomepraz ole 40 mg bidsucralf ate 1 gm BID Anemia 722472439 D64.9 11/15: hgb 8.0 hct 25.6will recheck labs Hgb 6.4 on presentati on to acute careDue to upper GI bleed,Rece ived 3 units of PRBC in acute careCarved ilol started for varices [id number] Lis Oconnell MD [facility] on [address] [place] [id number] 11/24/2023 08:20:43 11/29/2023 17:59:33 Harmful pattern of use of alcohol 16130468 F10.10 thiamine 100 mg dailyfolic acid 1 gm dailyMVI dailyacamp rosate 666 mg tidinterdi sciplinary support for sobrietywi ll monitor and support as needed Upper gastrointestinal bleeding 36075109 K92.89 with history varices, Daisy Zee tear:sucra lfate 1 gm bidomepraz ole 40 mg [id number] monitoravo id NSAIDs Alcoholic cirrhosis 4200 79711 K70.31 Xifaxan 550 mg bidspirono lactone 12.5 mg bidfurosem eliana 20 mg dailylactu lose 40gm tidwill monitor Esophageal varices 48107 008 I85.00 see meds for history UGI bleed:also carvedilol 6.25 mg bidwill monitor [id number] BRADY HOGAN NP [facility] on [address] [place] [id number] 11/28/2023 09:53:56 12/01/2023 12:57:26 Harmful pattern of use of alcohol 09228526 F10.10 thiamine 100 mg dailyfolic acid 1 gm dailyMVI dailyacamp rosate 666 mg tidinterdi sciplinary support for sobrietywi ll monitor and support as needed Upper gastrointestinal bleeding 27665947 K92.89 with history varices, Daisy Zee tear:sucra lfate 1 gm bidomepraz ole 40 mg [id number] monitoravo id NSAIDs Alcoholic cirrhosis 4200 04323 K70.31 Xifaxan 550 mg bidspirono lactone 12.5 mg bidfurosem eliana 20 mg dailylactu lose 40gm tidwill monitor Esophageal varices 58302 008 I85.00 see meds for history UGI bleed:carv edilol 6.25 mg bidwill monitor Health Concerns Section Related Observation LastModified by Organization Detai ls LastModified Time None Recorded Concern Status LastModified by Organization Details LastModified Time None Recorded Advance Directives Directive Y: Payers Insurance Date Sequence Insurance Name Policy Number Policy Yip Covered Member ID Yip Member ID Guarantor Name 04/19/2024 1 [place] [facility] Charbel Delgado [id number] Charbel Delgado Notes Date Note Type Note [...] repeat endoscopy in a few weeks. Molst: Fullcode HALEY WYATT [address], [address], [place], [address], [employer] 11/08/2023 16:31:23 11/14/2023 text/html Patient is 53-ye ar-old male seen today for acute rounding visit. Today he is stable, he was sent to ED on 11/09 for hgb noted 7.0 and had repeat labs in ED hgb 8.1. He returned to [facility] the same evening and has been [...] in a few weeks. HALEY WYATT [address], [address], [place], [address], [employer] [facility] 11/14/2023 21:53:05 11/17/2023 text/html Patient is 53-ye [...] no acute nursing concerns. HALEY WYATT [address], [address], [place], [address], [employer] 11/17/2023 13:21:44 11/24/2023 text/html This 53 year old male skilled nursing care resident is seen today for routine rounding visit and acute rounding visit. Medical history is remarkable for history of alcohol use disorder with alcoholic cirrhosis, HFpEF, hypertension, ADHD, anxiety, depression Patient was sent out of facility to ER at [facility] on 10/30/23 with melena and [...] on. Advanced directives: [facility]; full code assumed Lis Oconnell MD [address], [address], [place], [address], [facility] 11/24/2023 12:23:26 11/28/2023 text/html seen today for a cute rounding visit, CAOx3 he is complaining about being bored, independent in room, gait steady, mood stable, staff report no concerns BRADY HOGAN NP [address], [address], [place], [address], [facility] [id number] 11/28/2023 10:23:34
[2025-05-13 22:30] VITALS: BP 124/58; PULSE 70; RESP 16; TEMP 36.9; O2SAT 92
[2025-05-13 23:52] VITALS: BP 124/58; PULSE 70; RESP 16; TEMP 36.9; O2SAT 92
== END 2025-05-14 00:19 | disposition home or self-care (01) ==
PROVIDERS: Emergency Provider Emergency Medicine
DX: R60.0 Localized edema (principal); M79.605 Pain in left leg; Z79.899 Other long term (current) drug therapy; Z87.891 Personal history of nicotine dependence
CPT/HCPCS: 93971; 99284

== ENCOUNTER → 2025-05-13 22:05 | Outpatient (BNV) | payer MEDICAID, SELFPAY | PROVIDERS: Emergency Provider Emergency Medicine; Visit Provider Radiology Diagnostic Radiology | DX: R22.42 Localized swelling, mass and lump, left lower limb (principal) | CPT/HCPCS: 93971 ==

== ENCOUNTER 2025-05-17 20:20 | Emergency (ER) | payer MEDICAID, SELFPAY ==
[2025-05-17 20:28] VITALS: BP 130/62; PULSE 92; O2SAT 90
[2025-05-17 20:35] VITALS: BP 110/57; PULSE 83; RESP 18; TEMP 36.8; O2SAT 91; BMI 21.0
--- OUTSIDE RECORDS SUMMARY | 2025-05-17 21:01 | XMS_ITS | Clinical Summary ---
Author Organization [facility] Address [address] [facility] 7[address] [place] [address] Care Team Providers Care Trading Specialist Name Role Phone Missy Milner RN Unavailable [phone] Young Conor Unavailable Allergies No known active allergies Medications bisacodyl (Dulcolax) 10 MG suppository Insert [...] Patient presented with altered mental status from [facility] where he appeared more lethargic than [...] Encounters Date Type Department Care Team Description 05/13/2025 Orders Only [facility] External Provider, [facility] 05/09/2025 Patient Outreach [facility] [address] [place] [address] Missy Milner RN 05/08/2025 1:00 PM EDT [facility] [address] [address] Karely Guerra MD 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 Please make this patient a high priority.) 05/08/2025 Travel 05/05/2025 Orders Only GENERIC EXTERNAL DATA DEPARTMENT Provider, Generic External Data 05/02/2025 Patient Outreach [facility] [address] [place] [address] Missy Milner RN 05/02/2025 Patient Outreach [facility] [address] [place] [address] Missy Milner RN 05/02/2025 Telephone [facility] [address] [place] [phone] Misti Murry MD NEW PT APPT 05/02/2025 Patient Outreach [address] [address] Misti Murry MD Care Coordination (C3CM/CHW Conor Vidal, TC #3 initial outreach attempt, appt reminder_lvm) 04/30/[address] [address] Misti Murry MD CHART PREP 04/30/2025 Orders Only GENERIC EXTERNAL DATA DEPARTMENT Provider, Generic External Data 04/28/2025 Patient Outreach [address] [address] Misti Murry MD Care Coordination ([facility] Conor Vidal, TC #2 initial outreach attempt_lvm ) 04/24/2025 Patient Outreach [address] [address] Misti Murry MD 04/23/2025 Results Follow-Up [address] [address] Misti Murry MD XR Chest 2 Views 04/23/2025 Patient Outreach [address] [address] Misti Murry MD Pre-visit Planning ((Unable to reach for PVP screening, LVM) to be completed in office) 04/23/2025 Patient Outreach [address] [address] Misti Murry MD Care Coordination ([facility] Conor Vidal, Initial outreach attempt_lvm ) 04/23/2025 Patient Outreach [address] [address] Misti Murry MD Care Coordination ([facility] Conor Vidal, Chart review ) 04/23/2025 Patient Outreach [facility] [address] [place] [address] Misti Murry MD Care Coordination ([facility] chart review) 04/23/2025 Patient Outreach [address] [address] Misti Murry MD 04/22/2025 Telephone [facility] [address] [place] [address] Chinedu Brenner MD 04/21/2025 Telephone [facility] [address] [place] [address] Chinedu Brenner MD 04/19/2025 Orders Only [facility] External Provider, [facility] 04/09/2025 Telephone [facility] [address] [place] [address] Misti Murry MD Telephone Call 03/31/2025 Patient Outreach [facility] [address] [place] [address] Misti Murry MD Care Coordination (Care Coordination) 03/31/2025 Patient Outreach [facility] [address] [place] [address] Misti Murry MD 03/31/2025 Patient Outreach [facility] [address] [place] [address] Misti Murry MD 03/27/2025 Patient Outreach [facility] [address] [place] [address] Misti Murry MD 03/14/2025 Patient Outreach [facility] [address] [place] [address] Misti Murry MD Care Coordination (C3/CM Outreach) 03/07/2025 Patient Outreach [facility] [address] [place] [address] Misti Murry MD 03/03/2025 Orders Only GENERIC EXTERNAL DATA DEPARTMENT Provider, Generic External Data 02/26/2025 Orders Only GENERIC EXTERNAL DATA DEPARTMENT Provider, Generic External Data 02/21/2025 Orders Only GENERIC EXTERNAL DATA DEPARTMENT Provider, Generic External Data 02/21/2025 Patient Outreach [facility] [address] [place] [address] Santosh Daley MD Care Coordination (C3/CM Outreach) 02/19/2025 Patient Outreach [facility] [address] [place] [address] Missy Milner RN from Last 3 Months Immunizations Immunization Administration [...] Orientation Straight 01/11/2024 8: 14 AM EST Last Filed Vital Signs Vital Sign Reading Time Taken Comments Blood Pressure 126/67 05/08/2025 12:58 PM EDT Pulse 76 05/08/2025 12:58 PM EDT Temperature 36.7 C (98.1 F) 05/08/2025 12:58 PM EDT Respiratory Rate 20 05/08/2025 12:58 PM EDT Oxygen Saturation 87% 05/08/2025 12:58 PM EDT Inhaled Oxygen Concentration - - Weight 56.1 kg (123 lb 9.6 oz) 05/08/2025 12:58 PM EDT Height - - Body Mass Index - - Plan of Treatment Health Maintenance Due Date [...] (1 of 2) 2019 COVID-19 Vaccine (4 2023-2 5 season) 2024 11/23/2022, 04/28/2021, 04/28/2021 Influenza Vaccine (#1) 2025 01/05/2025 DTaP/Tdap/Td Vaccines (2 - T d or [...] Procedure Name Priority Date/Time Associated Diagnosis Comments US VENOUS DUPLEX LE LT Routine 10:50 PM EDT B TYPE NATRIURETIC PEPTIDE (BNP) Routine 05/05/2025 [...] AUTO DIFFERENTIAL Routine 02/21/2025 8:07 PM EDT from Last 3 Months Results * US VENOUS DUPLEX LE LT (05/13/2025 10:50 PM EDT) Anatomical Region Laterality Modality Abdomen Ultrasound 05/13/2025 10:5 0 PM EDT Narrative 05/13/2025 10:51 PM EDT [place] [address] Ultrasound Report Signed Patient: Charbel Delgado MR#: [id number] : 1970 Acct:[id number] Age/Sex: 55 / M ADM Date: 05/13/25 Loc: .ED Attending Dr: Ordering Physician: David Galvez PA-C Date of Service: 05/13/25 Procedure(s): US venous duplex LE LT Accession Number(s): [id number] cc: [facility]; David Galvez PA-C CLINICAL HISTORY: Swelling; Pain Venous duplex ultrasound left lower extremity Comparison: None provided Findings: The visualized deep veins are fully compressible with normal Doppler color flow and spectral tracings. No popliteal cyst. IMPRESSION: 1. Negative for left lower extremity deep vein thrombosis. This document has been electronically signed by: Denae Harman MD on 05/13/2025 22:50:03 Dictated By: Denae Harman MD Signed By: <Electronically signed by Denae Harman MD in OV> 05/13/252250 DD/ 49 TD/TT: 05/13/252249 Manager Ship: Procedure Note Shoaibter, Image - 05/13/2025 [place] [address] Ultrasound Report Signed Patient: Isaias Delgado#: [id number] : 1970Acct:[id number] Age/Sex: 55 / MADM Date: 05/13/25 Loc: HO.ED Attending Dr: Ordering Physician: David Galvez PA-C Date of Service: 05/13/25 Procedure(s): US venous duplex LE LT Accession Number(s): [id number] cc: [facility]; David Galvez PA-C CLINICAL HISTORY: Swelling; Pain Venous duplex ultrasound left lower extremity Comparison: None provided Findings: The visualized deep veins are fully compressible with normal Doppler color flow and spectral tracings. No popliteal cyst. IMPRESSION: 1. Negative for left lower extremity deep vein thrombosis. This document has been electronically signed by: Denae Harman MD on 05/13/2025 22:50:03 Dictated By: Denae Harman MD Signed By: <Electronically signed by Denae Harman MD in OV> 05/13/252250 DD/ 49 TD/TT: 05/13/252249 Manager Ship: us [facility] External Provider IMG US PROCEDURES Final Result * (ABNORMAL) CBC auto differential (05/05/2025 2:27 PM EDT) Only the most recent of5 resultswithin the time period is included. White Blood Count 3.9(L) 4.8 - 10.8 X10*3/uL [facility] Red Blood Count 3.62(L) 4.60 - 5.80 X10*6/uL [facility] Hemoglobin 10.9(L) 14.0 - 18.0 g/dl [facility] Hematocrit 33.4(L) 42.0 - 52.0 % [facility] Mean Corpuscular Volume 92.3 80.0 - 98.0 fL [facility] Mean Corpuscular Hemoglobin 30.1 27.0 - 33.0 pg [facility] Mean Corpuscular HGB Conc 32.6 31.0 - 36.0 g/dl [facility] Red Cell Distribution Width 18.6(H) 11.0 - 16.0 % [facility] Platelet Count 56(L) 160 - 400 X10*3/uL [facility] Mean Platelet Volume 11.2 9.4 - 12.4 fL [facility] Neutrophils Percent Auto 59.5 45 - 73 % [facility] Imm Gran Pct Auto 0.3 0.0 - 0.4 % [facility] Lymphocytes Percent Auto 26.9 20 - 40 % [facility] Monocytes Percent Auto 11.0 2 - 11 % [facility] Eosinophils Percent Auto 1.3 0 - 4 % [facility] Basophils Percent Auto 1.0 0 - 2 % [facility] NRBC Pct Auto 0.0 0.0 - 0.2 /100WBC [facility] Neutrophils Absolute Auto 2.3 2.0 - 8.3 x10*3/uL [facility] Imm Gran Abs Auto 0.01 0.00 - 0.03 X10*3/uL [facility] Lymphocytes Absolute Auto 1.1(L) 1.2 - 4.9 X10*3/uL [facility] Monocytes Absolute Auto 0.4 0.1 - 1.2 X10*3/uL [facility] Eosinophils Absolute Auto 0.1 0.0 - 0.4 X10*3/uL [facility] Basophils Absolute Auto 0.0 0.0 - 0.2 X10*3/uL [facility] NRBC Abs Auto 0.000 0.0 - 0.012 X10*3/uL [facility] 05/05/2025 2:27 PM EDT 05/05/2025 2:30 PM EDT us Generic External Data Provider LAB BLOOD ORDERAB LES Final Result Performing Organization Address [facility] Co de Phone Number [facility] [address] [place] [phone] * B Type Natriuretic Peptide (BNP) (05/05/2025 2:27 PM EDT) Only the most recent of2 resultswithin the time period is included. B Type Natriuretic Peptide 42 <100 pg/mL [facility] 05/05/2025 2:27 PM EDT 05/05/2025 2:30 PM EDT us Generic External Data Provider LAB BLOOD ORDERAB LES Final Result Performing Organization Address [facility] de Phone Number [facility] [address] [place] [phone] * Magnesium (05/05/2025 2:27 PM EDT) Only the most recent of2 resultswithin the time period is included. Magnesium 1.9 1.6 - 2.6 mg/dL [facility] 05/05/2025 2:27 PM EDT 05/05/2025 2:30 PM EDT us Generic External Data Provider LAB BLOOD ORDERAB LES Final Result Performing Organization Address [facility] de Phone Number [facility] [address] [place] [phone] * Creatine Kinase, Total (05/05/2025 2:27 PM EDT) Creatine Kinase Total 93 38 - 174 U/L [facility] 05/05/2025 2:27 PM EDT 05/05/2025 2:30 PM EDT us Generic External Data Provider LAB BLOOD ORDERAB LES Final Result Performing Organization Address [facility]/ZIP Co de Phone Number [facility] [address] [place] [phone] * (ABNORMAL) Hepatic Function Panel (05/05/2025 2:27 PM EDT) Only the most recent of2 resultswithin the time period is included. Bilirubin, Total 1.0 0.0 - 1.0 mg/dL [facility] Bilirubin, Direct 0.4 0.0 - 0.5 mg/dL [facility] Aspartate Amino Transferase 49(H) 5 - 37 U/L [facility] Alanine Aminotransferase 14 0 - 40 U/L [facility] Total Protein 8.1(H) 6.5 - 8.0 g/dL [facility] Albumin Level 3.7 3.5 - 5.0 g/dL [facility] Alkaline Phosphatase 159(H) 39 - 117 U/L [facility] 05/05/2025 2:27 PM EDT 05/05/2025 2:30 PM EDT us Generic External Data Provider LAB BLOOD ORDERAB LES Final Result Performing Organization Address [facility] de Phone Number [facility] [address] [place] [phone] * (ABNORMAL) Basic Metabolic Panel (05/05/2025 2:27 PM EDT) Only the most recent of2 resultswithin the time period is included. Pathologist [facility] Sodium 138 135 - 145 mmol/L [facility] Potassium 4.0 3.3 - 5.1 mmol/L [facility] Chloride 111(H) 96 - 108 mmol/L [facility] Carbon Dioxide 17(L) 22 - 29 mmol/L [facility] Anion Gap 14 12 - 20 [facility] Urea Nitrogen (BUN) 11 9 - 16 mg/dL [facility] Creatinine, Serum 0.89 0.5 - 1.4 mg/dL [facility] Creatinine Clr Calc Pharmacy 72.7 [facility] Comment:eGFR (calculated fro m the MDRD study equation) and eCrCl(calculated from the Cockcroft-Gault equation) are based ondifferent parameters and may not yield comparable results.If eCrCl result is absurd, please check patient'sheight/weight. Estimated Glomerular Filt Rate >60 [facility] Comment:Chronic Kidney Disea se: Estimated GFR < 60 mL/min/1.00d4Irhdhr Kidney Disease: Estimated GFR < 15 mL/min/1.73m2 Glucose 128(H) 60 - 115 mg/dL [facility] Calcium 9.0 8.4 - 10.2 mg/dL [facility] 05/05/2025 2:27 PM EDT 05/05/2025 2:30 PM EDT us Generic External Data Provider LAB BLOOD ORDERAB LES Final Result Performing Organization Address City/State/[facility] Co de Phone Number [facility] [address] [place] [phone] * XR Chest 2 Views (05/05/2025 1:51 PM EDT) Only the most recent of3 resultswithin the time period is included. Anatomical Region Laterality Modality Chest Radiographic Lamar ging 05/05/2025 1:51 PM EDT Narrative 05/05/2025 3:07 PM EDT [address] [address] XRay Report Signed Patient: Charbel Delgado MR#: [id number] : 1970 Acct:[id number] Age/Sex: 55 / M ADM Date: 05/05/25 Loc: HO.ED Attending Dr: Ordering Physician: Brooke Meneses Date of Service: 05/05/25 Procedure(s): XR chest 2V Accession Number(s): [id number] cc: [facility]; Brooke Meneses EXAMINATION: XR CHEST CLINICAL INFORMATION: [...] 05/05/25 1457 DD/ 1351 TD/TT: 05/05/25 1450 Manager Ship: Procedure Note Donotuseinterpreter, Image - 05/05/2025 [place] [address] XRay Report Signed Patient: Isaias Delgado#: [id number] : 1970Acct:[id number] Age/Sex: 55 / MADM Date: 05/05/25 Loc: .ED Attending Dr: Ordering Physician: Brooke Meneses Date of Service: 05/05/25 Procedure(s): XR chest 2V Accession Number(s): [id number] cc: [facility]; Brooke Meneses EXAMINATION: XR CHEST CLINICAL INFORMATION: [...] 05/05/25 1457 DD/ 1351 TD/TT: 05/05/25 1450 Manager Ship: [facility] External Provider IMG XR PROCEDURES Final Result * Blood Culture (First) (04/30/2025 9:19 AM EDT) Blood Venous blood specimen / Unknown 04/30/2025 9:19 AM EDT 04/30/2025 9:24 AM EDT Comment:Blood Narrative [facility] - 05/05/2025 11:24 AM EDT Blood Culture (First) No growth after 5 days. Specimen Source: Blood Generic External Data Provider LAB MICROBIOLOGY - GENERAL ORDERABLES Final Result Performing Organization Address City/[facility]/ZIP Co de Phone Number [facility] [address] [place] [phone] * Blood Culture (Second) (04/30/2025 9:19 AM EDT) Blood Venous blood specimen / Unknown 04/30/2025 9:19 AM EDT 04/30/2025 9:24 AM EDT Comment:Blood Narrative [facility] - 05/05/2025 11:24 AM EDT Blood Culture (Second) No growth after 5 days. Specimen Source: Blood Generic External Data Provider LAB MICROBIOLOGY - GENERAL ORDERABLES Final Result Performing Organization Address City/[facility]/ZIP Co de Phone Number [facility] [address] [place] [phone] * (ABNORMAL) Sed Rate by Modified Westergren (04/30/2025 9:19 AM EDT) Erythrocyte Sedimentation Rate 26(H) 0 - 15 MM/HR [facility] Comment:Patients with polycy themia and many hemoglobin abnormalitiesmay have depressed sed rates whereas patients with anemiamay have elevated sed rates. 04/30/2025 9:19 AM EDT 04/30/2025 9:24 AM EDT us Generic External Data Provider LAB BLOOD ORDERAB LES Final Result [facility] [address] [place] [phone] * (ABNORMAL) Comprehensive Metabolic Panel (04/30/2025 9:19 AM EDT) Only the most recent of3 resultswithin the time period is included. Sodium 141 135 - 145 mmol/L [facility] Potassium 3.8 3.3 - 5.1 mmol/L [facility] Chloride 112(H) 96 - 108 mmol/L [facility] Carbon Dioxide 19(L) 22 - 29 mmol/L [facility] Anion Gap 14 12 - 20 [facility] Urea Nitrogen (BUN) 9 9 - 16 mg/dL [facility] Creatinine, Serum 0.65 0.5 - 1.4 mg/dL [facility] Creatinine Clr Calc Pharmacy 100.3 [facility] Comment:eGFR (calculated fro m the MDRD study equation) and eCrCl(calculated from the Cockcroft-Gault equation) are based ondifferent parameters and may not yield comparable results.If eCrCl result is absurd, please check patient'sheight/weight. Estimated Glomerular Filt Rate >60 [facility] Comment:Chronic Kidney Disea se: Estimated GFR < 60 mL/min/1.93s0Nfpkaf Kidney Disease: Estimated GFR < 15 mL/min/1.73m2 Glucose 84 60 - 115 mg/dL [facility] Calcium 8.2(L) 8.4 - 10.2 mg/dL [facility] Bilirubin, Total 0.8 0.0 - 1.0 mg/dL [facility] Aspartate Amino Transferase 33 5 - 37 U/L [facility] Alanine Aminotransferase 10 0 - 40 U/L [facility] Total Protein 7.0 6.5 - 8.0 g/dL [facility] Albumin Level 3.2(L) 3.5 - 5.0 g/dL [facility] Alkaline Phosphatase 138(H) 39 - 117 U/L [facility] 04/30/2025 9:19 AM EDT 04/30/2025 9:24 AM EDT us Generic External Data Provider LAB BLOOD ORDERAB LES Final Result Performing Organization Address [facility] Co de Phone Number [facility] [address] [place] [phone] * (ABNORMAL) Glucose, Whole Blood (04/19/2025 7:43 PM EDT) Glucose, Whole Blood 122(H) 60 - 115 mg/dL [facility] Comment:METER #: [id number] 04/19/2025 7:43 PM EDT 04/19/2025 7:47 PM EDT us Generic External Data Provider LAB BLOOD ORDERAB LES Final Result Performing Organization Address [facility] Co de Phone Number [facility] [address] [place] [phone] * XR Chest 1 View (03/03/2025 8:10 AM EDT) Anatomical Region Laterality Modality Chest Radiographic Lamar ging 03/03/2025 8:10 AM EDT Narrative 03/03/2025 8:12 AM EDT [address] [address] XRay Report Signed Patient: Charbel Delgado MR#: [id number] : 1970 Acct:[id number] Age/Sex: 55 / M ADM Date: 03/03/25 Loc: .ED Attending Dr: Ordering Physician: Jesus Manuel Chinchilla MD Date of Service: 03/03/25 Procedure(s): XR chest 1V Accession Number(s): [id number] cc: [facility]; Jesus Manuel Chinchilla MD CLINICAL HISTORY: sob [...] signed by Deepak Omalley MD in OV> 03/03/25810 DD/ 9 TD/TT: 03/03/25809 Manager Ship: Procedure Note Donotuseinterpreter, Image - 03/03/2025 [place] [address] XRay Report Signed Patient: Isaias Delgado#: [id number] : 1970Acct:[id number] Age/Sex: 55 / MADM Date: 03/03/25 Loc: .ED Attending Dr: Ordering Physician: Jesus Manuel Chinchilla MD Date of Service: 03/03/25 Procedure(s): XR chest 1V Accession Number(s): [id number] cc: [facility]; Jesus Manuel Chinchilla MD CLINICAL HISTORY: sob [...] signed by Deepak Omalley MD in OV> 03/03/25810 DD/ 9 TD/TT: 03/03/25809 Manager Ship: [facility] External Provider IMG XR PROCEDURES Edited Result - Final * Ethanol (03/03/2025 5:47 AM EDT) Only the most recent of3 resultswithin the time period is included. ETHANOL (MG/DL) IN SER/PLAS 207 mg/dL [facility] Comment:Serum/plasma ethanol results are to be used formedical/treatment purposes only. 03/03/2025 5:47 AM EDT 03/03/2025 5:50 AM EDT Generic External Data Provider LAB BLOOD ORDERAB LES Final Result Performing Organization Address [facility] Co de Phone Number [facility] [address] [place] [phone] * (ABNORMAL) Partial Thromboplastin Time, Activated (APTT) (03/03/2025 5:47 AM EDT) Partial Thromboplastin Time 38.1(H) 26.0 - 36.8 SEC [facility] Comment:For information rega rding the monitoring of direct thrombininhibitors, please refer to Pharmacy. 03/03/2025 5:47 AM EDT 03/03/2025 5:50 AM EDT Generic External Data Provider LAB BLOOD ORDERAB LES Final Result Performing Organization Address [facility] Co de Phone Number [facility] [address] [place] [phone] * (ABNORMAL) Prothrombin Time-INR (03/03/2025 5:47 AM EDT) Prothrombin Time 16.3(H) 10.9 - 12.4 SEC [facility] INTERNATIONAL NORM RATIO 1.4(H) 0.9 - 1.1 [facility] Comment:INTERNATIONAL NORMAL IZED RATIO (INR) REFERENCE [...] ORDERAB LES Final Result Performing Organization Address [facility] de Phone Number [facility] [address] [place] [phone] * Acetaminophen level (02/26/2025 8:24 AM EDT) [facility] Acetaminophen LAB <3 <30 mcg/mL [facility] 02/26/2025 8:24 AM EDT 02/26/2025 10:28 PM EDT Generic External Data Provider LAB BLOOD ORDERAB LES Final Result Performing Organization Address [facility] Phone Number [facility] [address] [place] [phone] * (ABNORMAL) Salicylate (02/26/2025 8:24 AM EDT) [facility] Salicylate <5.0(L) 15 - 30 mg/dL [facility] 02/26/2025 8:24 AM EDT 02/26/2025 10:28 PM EDT Generic External Data Provider LAB BLOOD ORDERAB LES Final Result Performing Organization Address [facility] de Phone Number [facility] [address] [place] [phone] * (ABNORMAL) Drug Monitoring, Panel 1, Screen, Urine (02/21/2025 8:07 PM EDT) Pathologist [facility] Opiate Screen Urine Not Detected Not Detect [facility] Comment:Opiate cut-off is 30 0 ng/mL.Positive results are unconfirmed and should not be used fornon-medical purposes. Barbiturates, Urine POSITIVE(A) Not Detect [facility] Comment:Barbiturate cut-off is 200 ng/mL.Positive results are unconfirmed and should not be used fornon-medical purposes. Phencyclidine Screen Urine Not Detected Not Detect [facility] Comment:Phencyclidine cut-of f is 25 ng/mL.Positive results are unconfirmed and should not be used fornon-medical purposes. Amphetamine Screen Urine Not Detected Not Detect [facility] Comment:Amphetamine cut-off is 1000 ng/mL.Positive results are unconfirmed and should not be used fornon-medical purposes. Benzodiazepines Screen Urine Not Detected Not Detect [facility] Comment:Benzodiazepine cut-o ff is 200 ng/mL.Positive results are unconfirmed and should not be used fornon-medical purposes. Cocaine Screen Urine Not Detected Not Detect [facility] Comment:Cocaine cut-off is 3 00 ng/mL.Positive results are unconfirmed and should not be used fornon-medical purposes. Cannabinoid Screen Urine Not Detected Not Detect [facility] Comment:Cannabinoid cut-off is 50 ng/mL.Positive results are unconfirmed and should not be used fornon-medical purposes. Methadone Screen, Urine Not Detected Not Detect ng/mL [facility] Comment:Methadone cut-off is 300 ng/mL.Positive results are unconfirmed and should not be used fornon-medical purposes. FENTANYL URINE Not Detected Not Detect [facility] Comment:Fentanyl cut-off is 1 ng/mL.Positive results are unconfirmed and should not be used fornon-medical purposes. Oxycodone Urine Screen Not Detected Not Detect ng/mL [facility] Comment:Oxycodone cut-off is 100 ng/mL.Positive results are unconfirmed and should not be used fornon-medical purposes. Buprenorphine Screen Not Detected Not Detect ng/mL [facility] Comment:Buprenorphine cut-of f is 5 ng/mL.Positive results are unconfirmed and should not be used fornon-medical purposes. 02/21/2025 8:07 PM EDT 02/21/2025 8:10 PM EDT us Generic External Data Provider LAB URINE ORDERAB LES Final Result [facility] [address] [place] [address] [phone] from Last 3 Months Insurance [place] H[place] [employer] C[place] Care Teams Trading Specialist Relationship Specialty Start Date End Date Missy Milner RN [address] [place] [id number] Registered Nurse Family Medicine 04/23/25 Conor Vidal 04/23/25
--- OUTSIDE RECORDS SUMMARY | 2025-05-17 21:01 | XMS_ITS | Data Portability ---
Author Organization [facility], Main Office Address [address] [address] [address] [place] [address] Care Team Providers Care Code Enforcement Officer Name Role Phone [facility] OTHER Assessment [...] Time Harmful pattern of use of alcohol 94577155 Active 2022 HALEY WYATT [address] [facility], [address], [place], [address], [facility] 3 16:10:20 Alcoholic cirrhosis 752648706 Active 2022 HALEY WYATT [address] [place] [address], [address], [place], [address], [facility] 3 16:10:32 Anemia 084366033 Active 2022 HALEY WYATT [address] [place] [address], [address], [place], [address], [facility] 3 16:10:45 Hepatic encephalop athy 82623086 Active 2022 HALEY WYATT [address] [facility], [address], [place], [address], [facility] 3 16:11:37 Acute respirator y failure 31093146 Active 2022 HALEY WYATT [address] [place] [address], [address], [place], [address], [facility] 3 16:12:23 Laboratory finding abnormal Active 2022 hypokalemi a hypomagnes ium pancytopen ua repleted in acute care. mag oxide 400 mg BID HALEY WYATT [address] [facility], [address], [place], [address], [facility] 3 16:40:30 Congestive heart failure 45838777 Active 2022 HALEY WYATT [address] [facility], [address], [place], [address], [facility] 3 16:25:07 Homeless 33109820 Active 2022 HALEY WYATT [address] [place] [address], [address], [place], [address], [facility] 3 16:55:00 Pancytopen ia 968871356 Active 2022 HALEY WYATT [address] [place] [address], [address], [place], [address], [facility] 3 21:48:09 Esophageal varices 51178612 Active 2022 HALEY WYATT [address] [place] [address], [address], [place], [address], [employer] [facility] 3 16:19:34 Problem Notes None recorded. Medical Equipment None Reported. Allergies No known drug allergies Vitals Date Recorded Body temperature Oxygen saturation Oxygen saturation in Arterial blood by Pulse oximetry Heart rate Systolic And Diastolic Provider Name and Address Organization Details Last Updated DateTime 4 97.6 [degF] 95 % 95 % 67 /min 110/70 mm[Hg] Lis Oconnell MD [address] [place] [address], [facility] [address], [place], [address], [employer] [facility] 4 08:21:06 Date Recorded Heart rate Respiratory rate Body temperature Oxygen saturation Oxygen saturation in Arterial blood by Pulse oximetry Systolic And Diastolic Provider Name and Address Organization Details Last Updated DateTime 4 67 /min 16 /min 97.6 [degF] 95 % 95 % 107/66 mm[Hg] BRADY HOGAN NP [address] [place] [address], [address], [place], [address], [facility] 4 10:20:23 Social History Question Answer Notes LastModified by Organizat ion Details LastModified Time Tobacco Smoking Status Former Smoker HALEY WYATT [address] [facility], [address], [place], [address], [employer] [facility] 09/12/2023 16:57:06 Do You Have An Advance Directive? Yes Information not available 09/12/2023 What Is Your Level Of Caffeine Consumption? None Information not available 09/12/2023 What Is Your Code Status? Full Code Information not available 09/12/2023 Where Do You Live? Other Homeless Information not available 09/12/2023 Legal Guardian? No HCP/not Invoked Information not available 09/12/2023 Do You Have A Medical Power Of Medical Collector? No HCP/brother Information not available 09/12/2023 What [...] mcg/0.3 mL dose 3 completed Mojgan jain [facility] 11/10/2023 13:12:58 Tdap 1 completed Mojgan jain [facility] 03/01/2024 11:01:29 Td (adult), 5 Lf tetanus toxoid, preservative free, adsorbed 7 completed Mojgan jain [place] [facility] 03/01/2024 11:06:00 Past Encounters Encounter ID Performer Location Encounter Start Date Encounter Closed Date Diagnosis/Indication Diagnosis SNOMED-CT Code Diagnosis ICD10 Code Diagnosis Note [id number] HALEY WYATT [facility] on [address] [place] [address] 09/12/2023 08:36:44 09/15/2023 08:04:55 Hepatic encephalopathy 75842630 K76.82 resolved in acute care/see hpistarted on lactuloser ifaximin 550 mg BIDlactulo se 40 g TID. Acute resp iratory failure 68266564 J96.00 with hypoxia d/t to acute on chronic heart failure-di uresed w/IV lasix resolved in acute care Anemia 719790166 D64.9 see hpiCT scan with distal esophageal varices.- EGD suspected gastric varies as source of bleedfollo w up with GI in 4 weeks for repeat EGD Congestive heart failure 65728238 I50.9 with preserved ejection fractionCT scan showed small plueral effusionCX R with bibasilar opacitiesc ontinue furosemide 20 mg BIDcontinu e spironolac tone 12.5 mg BIDlow salt diet.monit or weight Harmful pa ttern of use of alcohol 27575245 F10.10 with acute withdrawal in acute care tx with phenobarbi germania taper.decl ined recovery support in acute carethiami ne 100 mg dailyfolic acid 1 mg daily Bleeding g astric varices 25364369 I86.4 source of anemiaomep razole [address] dailysucra lfate 1 gm BIDcontinu e PPI and sucralfate Homeless 65728483 Z59.00 Social service refer for community resources. [id number] Lis Oconnell MD [facility] on [address] [place] [address] 09/13/2023 05:12:10 09/15/2023 08:33:31 Acute on chronic diastolic heart failure 382163317 I50.33 improved:s pironolact one 12.5 mg bidfurosem eliana 20 mg bidwill monitor Harmful pa ttern of use of alcohol 59620365 F10.10 thiamine 100 mg dailyfolic acid 1 gm dailyinter disciplina ry support for sobrietywi ll monitor and support as needed Bleeding e sophageal varices 58955935 I85.01 s/p blood transfusio ns, octeotride , banding/he mospray:om eprazole 40 mg dailysucra lfate 1 gm bidwill monitor Alcoholic cirrhosis 4200 25000 K70.31 Xifaxan 550 mg bidspirono lactone 12.5 mg bidfurosem eliana 20 mg bidwill monitor Hepatic encephalopathy 78759831 K76.82 lactulose 40 gm tidwill monitor [id number] HALEY WYATT [facility] [address] [place] [address] 09/18/2023 11:37:36 09/20/2023 15:12:00 Congestive heart failure 61963994 I50.9 continue furosemide 20 mg BIDcontinu e spironolac tone 12.5 mg BIDlow salt diet.monit or weight Harmful pa ttern of use of alcohol 42168150 F10.10 will consider acamprosta te 666 mg TID.thiami ne 100 mg dailyfolic acid 1 mg daily Bleeding g astric varices 74401348 I86.4 source of anemiaomep razole [address] dailysucra lfate 1 gm BIDcontinu e PPI and sucralfate Hepatic encephalopathy 36050898 K76.82 resolved in acute care/see hpistarted on lactuloser ifaximin 550 mg BIDlactulo se 40 g TID.- reports loose stool x's 1 daily. will continue to monitor for now . [id number] HALEY WYATT [facility] on [address] [place] [address] 10/06/2023 10:25:53 10/18/2023 12:16:47 Altered mental status 641061982 R41.82 see hpiconcern for hepatic encephalop athy due to hxsend to ER for further evaluation [id number] HALEY WY[facility] on [address] [place] [address] 10/12/2023 13:49:36 10/18/2023 15:10:16 Hepatic encephalopathy 26962336 K76.82 resolved in acute care/see hpiimaging with no acute processCon tinue lactulose, rifaximin, Lasix, spironolac toneFollow -up outpatient GI Congestive heart failure 45618409 I50.9 continue furosemide 20 mg BIDcontinu e spironolac tone 12.5 mg BIDlow salt diet.monit or weight Pancytopenia 097551813 D 61.818 wbc 3.41-Hgb 7.3-HCT 23.2Possib ly due to alcohol abuseWill continue to monitor CBC [id number] HALEY WYATT [facility] on [address] [place] [address] 10/16/2023 13:03:21 11/22/2023 15:10:28 Hepatic encephalopathy 71894095 K76.82 resolved in acute care/see hpiimaging with no acute processCon tinue lactulose, rifaximin, Lasix, spironolac toneFollow -up outpatient GI Congestive heart failure 70584573 I50.9 continue furosemide 20 mg BIDcontinu e spironolac tone 12.5 mg BIDlow salt diet.monit or weight Pancytopenia 390646888 D 61.818 see aboveimpro kiki hgb 8.8- Plt 68Possibly due to alcohol abuseWill continue to monitor CBC [id number] HALEY WYATT [facility] on [address] [place] [id number] 10/24/2023 11:18:12 11/03/2023 11:47:28 Hepatic encephalopathy 62005279 K76.82 alert and oriented x's 2 today unsure of date.resol kiki in acute care/see hpiimaging with no acute processCon tinue lactulose, rifaximin, Lasix, spironolac toneFollow -up outpatient GI Congestive heart failure 16253531 I50.9 Stablke, no reported sxcontinue furosemide 20 mg BIDcontinu e spironolac tone 12.5 mg BIDlow salt diet.monit or weight Pain of le ft shoulder joint [id number] 6482399 M25.512 see hpixray 3 viewstylen ol 975 mg scheduledm otrin 600 mg scheduled. PT referral for pain with abduction. [id number] HALEY WYATT [facility] on [address] [place] [id number] 10/27/2023 09:08:50 11/03/2023 12:28:46 Hepatic encephalopathy 30552345 K76.82 appears to be a baseline status, however he appears disoriente d at times.Cont inue lactulose, rifaximin, Lasix, spironolac toneFollow -up outpatient GI Congestive heart failure 29013443 I50.9 Stablecont inue furosemide 20 mg BIDcontinu e spironolac tone 12.5 mg BIDlow salt diet.monit or weight Pain of le ft shoulder joint 2515317915 5132134 M25.512 Xray completed, results reviewed with patient: Mild degenerati on of the left shoulder; no acute fracture or dislocatio n. continue with:tylen ol 975 mg scheduledm otrin 600 mg scheduled. PT referral for pain with abduction. [id number] HALEY WYATT [facility] on [address] [place] [phone] 11/08/2023 08:13:22 11/22/2023 16:43:01 Daisy-Zee tear 247384368 K22.6 2 days of melena with coffee-kell und emesis on presentati on.GI consulted and performed upper endoscopy on 10/31, evidence of daisy zee tear, gastric ulcers s/p clip placement. continue PPI omeprazole 40 mg twice daily.Carv edilol started as per recommenda tions for esophageal varicesPat ient was advised to avoid NSAID Esophageal varices 70151 008 I85.00 Started on carvedilol 6.25 mg bidomepraz ole 40 mg bidsucralf ate 1 gm BID Anemia 655378238 D64.9 Hgb 6.4 on presentati on to acute careDue to upper GI bleed,Rece ived 3 units of PRBC in acute careCarved ilol started for varices [id number] HALEY WYATT [facility] on [address] [place] [id number] 11/14/2023 07:57:53 12/01/2023 10:08:54 Daisy-Zee tear 546438896 K22.6 11/14 there has been no reported couging and vomiting. 2 days of melena with coffee-kell und emesis on presentati on.GI consulted and performed upper endoscopy on 10/31, evidence of daisy zee tear, gastric ulcers s/p clip placement. continue PPI omeprazole 40 mg twice daily.Carv edilol started as per recommenda tions for esophageal varicesPat ient was advised to avoid NSAID Esophageal varices 61632 008 I85.00 stableStar forrest on carvedilol 6.25 mg bidomepraz ole 40 mg bidsucralf ate 1 gm BID Anemia 266250225 D64.9 11/14will recheck labspatien t denies excess fatigue, weakness, shortness of breathdoes not appear pale, color normal. Hgb 6.4 on presentati on to acute careDue to upper GI bleed,Rece ived 3 units of PRBC in acute careCarved ilol started for varices [id number] HALEY WYATT [facility] on [address] [place] [id number] 11/17/2023 08:07:13 12/01/2023 11:37:06 Daisy-Zee tear 279508802 K22.6 stable, There has been no new reported sx.2 days of melena with coffee-kell und emesis on presentati on.GI consulted and performed upper endoscopy on 10/31, evidence of daisy zee tear, gastric ulcers s/p clip placement. continue PPI omeprazole 40 mg twice daily.Carv edilol started as per recommenda tions for esophageal varicesPat ient was advised to avoid NSAID Esophageal varices 99604 008 I85.00 stableStar forrest on carvedilol 6.25 mg bidomepraz ole 40 mg bidsucralf ate 1 gm BID Anemia 845016964 D64.9 11/15: hgb 8.0 hct 25.6will recheck labs Hgb 6.4 on presentati on to acute careDue to upper GI bleed,Rece ived 3 units of PRBC in acute careCarved ilol started for varices [id number] Lis Oconnell MD [facility] on [address] [place] [phone] 11/24/2023 08:20:43 11/29/2023 17:59:33 Harmful pattern of use of alcohol 24182933 F10.10 thiamine 100 mg dailyfolic acid 1 gm dailyMVI dailyacamp rosate 666 mg tidinterdi sciplinary support for sobrietywi ll monitor and support as needed Upper gastrointestinal bleeding 97787608 K92.89 with history varices, Daisy Zee tear:sucra lfate 1 gm bidomepraz ole 40 mg [id number] monitoravo id NSAIDs Alcoholic cirrhosis 4200 [address]8730 K70.31 Xifaxan 550 mg bidspirono lactone 12.5 mg bidfurosem eliana 20 mg dailylactu lose 40gm tidwill monitor Esophageal varices 82476 008 I85.00 see meds for history UGI bleed:also carvedilol 6.25 mg bidwill monitor [id number] BRADY HOGAN NP [facility] on [address] [place] [address] 11/28/2023 09:53:56 12/01/2023 12:57:26 Harmful pattern of use of alcohol 68139145 F10.10 thiamine 100 mg dailyfolic acid 1 gm dailyMVI dailyacamp rosate 666 mg tidinterdi sciplinary support for sobrietywi ll monitor and support as needed Upper gastrointestinal bleeding 30648418 K92.89 with history varices, Daisy Zee tear:sucra lfate 1 gm bidomepraz ole 40 mg [id number] monitoravo id NSAIDs Alcoholic cirrhosis 4200 92242 K70.31 Xifaxan 550 mg bidspirono lactone 12.5 mg bidfurosem leiana 20 mg dailylactu lose 40gm tidwill monitor Esophageal varices 97723 008 I85.00 see meds for history UGI bleed:carv edilol 6.25 mg bidwill monitor Health Concerns Section Related Observation LastModified by Organization Detai ls LastModified Time None Recorded Concern Status LastModified by Organization Details LastModified Time None Recorded Advance Directives Directive Y: Payers Insurance Date Sequence Insurance Name Policy Number Policy Yip Covered Member ID Yip Member ID Guarantor Name 04/19/2024 1 [place]: [employer] Charbel Delgado [id number] Charbel Delgado Notes Date Note Type Note [...] few weeks. Molst: Fullcode HALEY WYATT [address], [address], [place], [address], [employer] 11/08/2023 16:31:23 11/14/2023 text/html Patient is 53-ye ar-old male seen today for acute rounding visit. Today he is stable, he was sent to ED on 11/09 for hgb noted 7.0 and had repeat labs in ED hgb 8.1. He returned to [facility] the same evening and has been [...] in a few weeks. HALEY WYATT [address], [place], [address], [employer] 11/14/2023 21:53:05 11/17/2023 text/html Patient is 53-ye [...] There is no acute nursing concerns. 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 Medical history is remarkable for history of alcohol use disorder with alcoholic cirrhosis, HFpEF, hypertension, ADHD, anxiety, depression Patient was sent out of facility to ER at [facility] on 10/30/23 with melena and coffee-ground [...] full code assumed Lis Oconnell MD [address] [facility], [address], [place], [address], [facility] 11/24/2023 12:23:26 11/28/2023 text/html seen today for a cute rounding visit, CAOx3 he is complaining about being bored, independent in room, gait steady, mood stable, staff report no concerns BRADY HOGAN, [place] [address] [facility], [address], [place], [address], [facility] 11/28/2023 10:23:34
--- NOTE | 2025-05-18 02:19 | ED.GENADULT ---
HPI - General Adult General Chief complaint: Extremity Problem Stated complaint: ankle pain and swelling Time Seen by Provider: 05/17/25 21:38 Source: patient Limitations: other (Intoxication) History of Present Illness ED Provider: Trudy Brannon PA-C HPI narrative: 55-year-old male with a history of alcohol use disorder, housing and security, failure to thrive, who is well known to our emergency department being a high utilizer of resources, presents intoxicated. Patient states his feet hurt from walking and that has ankles are swollen. Related Data Home Medications ?Medication ?Instructions ?Recorded ?Confirmed lactulose 10 gram/15 mL oral 30 ml PO TID 02/01/25 03/03/25 solution omeprazole 40 mg capsule,delayed 40 mg PO DAILY@0630 02/01/25 03/03/25 release Previous Rx's ?Medication ?Instructions ?Recorded acetaminophen 325 mg tablet 975 mg (3 x 325 mg) PO Q6H PRN 12/17/24 Pain, Mild 1-3,Fever,Headache #30 tabs magnesium oxide 400 mg (241.3 mg 400 mg PO DAILY #30 tabs 12/17/24 magnesium) tablet sodium chloride 0.65 % nasal spray 1 spray intranasal Q1H PRN Dryness 12/17/24 aerosol (Deep Sea Nasal) #44 mL sucralfate 1 gram tablet (Carafate) 1 g PO BID #60 tabs 12/17/24 folic acid 1 mg tablet 1 mg PO DAILY #90 tabs 02/04/ thiamine mononitrate (vit B1) 100 100 mg PO DAILY #90 tabs 02/04/ mg tablet spironolactone 25 mg tablet 25 mg PO DAILY #90 tabs 02/13/25 Allergies Allergy/AdvReac Type Severity Reaction Status Date / Time No Known Allergies (No Known Allergy Verified 05/17/25 20:42 Allergies*) [facility] Past Medical History Medical History CHF (congestive heart failure) Alcohol use disorder Alcohol abuse Acute hypoxemic respiratory failure Anemia Pneumonia Alcohol withdrawal syndrome Pancytopenia Alcohol abuse Thrombocytopenia Esophageal varices Acute on chronic anemia Alcoholic liver disease Aspiration pneumonia Thrombocytopenia Malnutrition CHF (congestive heart failure) Anemia Hypomagnesemia Cirrhosis Thrombocytopenia Acute on chronic anemia CHF (congestive heart failure) Anemia Alcohol abuse Surgical History No history of previous surgery Social History Social History Household Members: None Household Members Other:: homeless Housing: Homeless Housing Other:: Homeless fdc Do you presently have visiting nurse or other home services: No Unable to assess alcohol history related to: Refusing to respond Alcohol intake: current Alcohol intake frequency: 3 or more drinks per day Alcohol type: beer and hard liquor Comment: 1 assist to bathroom Patient Tobacco Use Status: Former Tobacco user Tobacco use type: Cigarette Second Hand Smoke Exposure: No Advance Directives: Yes Advance Directives on File: Yes Advance Directives Date on File: 07/13/23 service: No Physical Exam ED Vital Signs: Vital Signs - 24 hr 05/17/25 20:35 Temperature 98.3 F Pulse Rate 83 Respiratory Rate 18 Blood Pressure 110/57 L Pulse Oximetry 91 L Oxygen Delivery Method Room Air BMI result Body Mass Index 21.0 Medications Administered Discontinued Medications Generic Name Dose Route Start Last Admin Trade Name Freq PRN Reason Stop Dose Admin Acetaminophen 975 mg 05/17/25 23:38 05/18/25 00:32 Acetaminophen 325 Mg Tablet PO 05/17/25 23:39 975 mg ONCE ONE Administration Ibuprofen 600 mg 05/17/25 23:38 05/18/25 00:32 Ibuprofen 600 Mg Tablet PO 05/17/25 23:39 600 mg ONCE ONE Administration Medical Decision Making Medical Decision Making MDM Narrative: 55-year-old male with a history of alcohol use disorder, housing and security, failure to thrive, who is well known to our emergency department being a high utilizer of resources, presents intoxicated. Patient states his feet hurt from walking and that has ankles are swollen. Problem: Housing and security, alcohol use disorder History: Per patient I have considered the following differential diagnoses: Fracture, dislocation, sprain, her failure exacerbation, liver dysfunction, renal dysfunction, secondary gain, malingering Plan: Today is the 14th visit the patient has had to the emergency room since the beginning of April. He has had ongoing foot ankle pain and swelling, there was no change in his symptoms today. We will monitor the patient overnight for his safety, and discharge when he is clinically sober. Discharge Plan Discharge Clinical Impression: Lower extremity edema, Alcohol use disorder Patient Disposition: Home, Self-Care Instructions: Abuse of Alcohol (ED) Additional Instructions: You were monitored in the emergency room overnight for your safety until you were clinically sober. Prescriptions: No Action sucralfate [Carafate] 1 gram tablet 1 g PO BID Qty: 60 0RF acetaminophen 325 mg Tablet 975 mg PO Q6H PRN (Reason: Pain, Mild 1-3,Fever,Headache) Qty: 30 0RF magnesium oxide 400 mg (241.3 mg magnesium) Tablet 400 mg PO DAILY Qty: 30 0RF Deep Sea Nasal 0.65 % Aerosol,[place] 1 spray intranasal Q1H PRN (Reason: Dryness) Qty: 44 0RF spironolactone 25 mg tablet 25 mg PO DAILY Qty: 90 0RF lactulose 10 gram/15 mL solution 30 ml PO TID omeprazole 40 mg capsule,delayed release(DR/EC) 40 mg PO DAILY@0630 folic acid 1 mg Tablet 1 mg PO DAILY Qty: 90 0RF thiamine mononitrate (vit B1) 100 mg Tablet 100 mg PO DAILY Qty: 90 0RF Print Language: Welsh
[2025-05-18 04:45] VITALS: BP 95/55; PULSE 73; RESP 18; TEMP 36.9; O2SAT 90
[2025-05-18 06:40] VITALS: BP 00/00; PULSE 0; RESP 18; TEMP -17.7; TEMP 0
== END 2025-05-18 06:51 | disposition home or self-care (01) ==
PROVIDERS: Emergency Provider Emergency Medicine
DX: M25.473 Effusion, unspecified ankle (principal); R60.9 Edema, unspecified; F10.90 Alcohol use, unspecified, uncomplicated; Y90.9 Presence of alcohol in blood, level not specified; Z59.9 Problem related to housing and economic circumstances, unspecified; R62.7 Adult failure to thrive
CPT/HCPCS: 99283; 99284

== ENCOUNTER 2025-05-21 19:36 | Emergency (ER) | payer MEDICAID, SELFPAY ==
[2025-05-21 20:24] VITALS: BP 100/46; PULSE 88; RESP 18; TEMP 36.6; O2SAT 91
--- OUTSIDE RECORDS SUMMARY | 2025-05-21 20:36 | XMS_ITS | Data Portability ---
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 Name Role Phone [facility] ([facility] OTHER Assessment Encounter [...] Time Harmful pattern of use of alcohol 44537681 Active 2022 HALEY WYATT [address] [facility], [address], [place], [address], [facility] 3 16:10:20 Alcoholic cirrhosis 550604679 Active 2022 HALEY WYATT [address] [place] [address], [address], [place], [address], [facility] 3 16:10:32 Anemia 084967351 Active 2022 HALEY WYATT [address] [place] [address], [address], [place], [address], [facility] 3 16:10:45 Hepatic encephalop athy 59003570 Active 2022 HALEY WYATT [address] [facility], [address], [place], [address], [facility] 3 16:11:37 Acute respirator y failure 98019301 Active 2022 HALEY WYATT [address] [place] [address], [address], [place], [address], [facility] 3 16:12:23 Laboratory finding abnormal Active 2022 hypokalemi a hypomagnes ium pancytopen ua repleted in acute care. mag oxide 400 mg BID HALEY WYATT [address] [facility], [address], [place], [address], [facility] 3 16:40:30 Congestive heart failure 87235600 Active 2022 HALEY WYATT [address] [facility], [address], [place], [address], [facility] 3 16:25:07 Homeless 31009156 Active 2022 HALEY WYATT [address] [place] [address], [address], [place], [address], [facility] [employer] [facility] 3 16:55:00 Pancytopen ia 005876087 Active 2022 HALEY WYATT [address] [place] [address], [address], [place], [address], [facility] 3 21:48:09 Esophageal varices 31324500 Active 2022 HALEY WYATT [address] [place] [address], [address], [place], [address], [facility] 3 16:19:34 Problem Notes None recorded. Medical Equipment None Reported. Allergies No known drug allergies Vitals Date Recorded Body temperature Oxygen saturation Oxygen saturation in Arterial blood by Pulse oximetry Heart rate Systolic And Diastolic Provider Name and Address Organization Details Last Updated DateTime 4 97.6 [degF] 95 % 95 % 67 /min 110/70 mm[Hg] Lis Oconnell MD [address] [place] [address], [facility] [address], [place], [address], [facility] 4 08:21:06 Date Recorded Heart rate Respiratory rate Body temperature Oxygen saturation Oxygen saturation in Arterial blood by Pulse oximetry Systolic And Diastolic Provider Name and Address Organization Details Last Updated DateTime 4 67 /min 16 /min 97.6 [degF] 95 % 95 % 107/66 mm[Hg] BRADY HOGAN NP [address] [place] [address], [address], [place], [address], [facility] 4 10:20:23 Social History Question Answer Notes LastModified by Organizat ion Details LastModified Time Tobacco Smoking Status Former Smoker HALEY WYATT [address] [facility], [address], [place], [address], [facility] 09/12/2023 16:57:06 Do You Have An Advance Directive? Yes Information not available 09/12/2023 What Is Your Level Of Caffeine Consumption? None Information not available 09/12/2023 What Is Your Code Status? Full Code Information not available 09/12/2023 Where Do You Live? Other Homeless Information not available 09/12/2023 Legal Guardian? 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 No HCP/brother Information not available 09/12/2023 What [...] mcg/0.3 mL dose 3 completed Mojgan jain [facility] 11/10/2023 13:12:58 Tdap 1 completed Mojgan jain [facility] 03/01/2024 11:01:29 Td (adult), 5 Lf tetanus toxoid, preservative free, adsorbed 7 completed Mojgan jain [facility] 03/01/2024 11:06:00 Past Encounters Encounter ID Performer Location Encounter Start Date Encounter Closed Date Diagnosis/Indication Diagnosis SNOMED-CT Code Diagnosis ICD10 Code Diagnosis Note [id number] HALEY WYATT [facility] on [address] [place] [address] 09/12/2023 08:36:44 09/15/2023 08:04:55 Hepatic encephalopathy 96811107 K76.82 resolved in acute care/see hpistarted on lactuloser ifaximin 550 mg BIDlactulo se 40 g TID. Acute resp iratory failure 91875719 J96.00 with hypoxia d/t to acute on chronic heart failure-di uresed w/IV lasix resolved in acute care Anemia 682427497 D64.9 see hpiCT scan with distal esophageal varices.- EGD suspected gastric varies as source of bleedfollo w up with GI in 4 weeks for repeat EGD Congestive heart failure 92562538 I50.9 with preserved ejection fractionCT scan showed small plueral effusionCX R with bibasilar opacitiesc ontinue furosemide 20 mg BIDcontinu e spironolac tone 12.5 mg BIDlow salt diet.monit or weight Harmful pa ttern of use of alcohol 38001022 F10.10 with acute withdrawal in acute care tx with phenobarbi germania taper.decl ined recovery support in acute carethiami ne 100 mg dailyfolic acid 1 mg daily Bleeding g astric varices 94424454 I86.4 source of anemiaomep razole [address] dailysucra lfate 1 gm BIDcontinu e PPI and sucralfate Homeless 30544661 Z59.00 Social service refer for community resources. [id number] Lis Oconnell MD [facility] on [address] [place] [address] 09/13/2023 05:12:10 09/15/2023 08:33:31 Acute on chronic diastolic heart failure 903334530 I50.33 improved:s pironolact one 12.5 mg bidfurosem eliana 20 mg bidwill monitor Harmful pa ttern of use of alcohol 68647344 F10.10 thiamine 100 mg dailyfolic acid 1 gm dailyinter disciplina ry support for sobrietywi ll monitor and support as needed Bleeding e sophageal varices 80420743 I85.01 s/p blood transfusio ns, octeotride , banding/he mospray:om eprazole 40 mg dailysucra lfate 1 gm bidwill monitor Alcoholic cirrhosis 4200 31483 K70.31 Xifaxan 550 mg bidspirono lactone 12.5 mg bidfurosem eliana 20 mg bidwill monitor Hepatic encephalopathy 91404515 K76.82 lactulose 40 gm tidwill monitor [id number] HALEY WY[facility] on [address] [place] [address] 09/18/2023 11:37:36 09/20/2023 15:12:00 Congestive heart failure 27918984 I50.9 continue furosemide 20 mg BIDcontinu e spironolac tone 12.5 mg BIDlow salt diet.monit or weight Harmful pa ttern of use of alcohol 67159870 F10.10 will consider acamprosta te 666 mg TID.thiami ne 100 mg dailyfolic acid 1 mg daily Bleeding g astric varices 91049165 I86.4 source of anemiaomep razole [address] dailysucra lfate 1 gm BIDcontinu e PPI and sucralfate Hepatic encephalopathy 47449972 K76.82 resolved in acute care/see hpistarted on lactuloser ifaximin 550 mg BIDlactulo se 40 g TID.- reports loose stool x's 1 daily. will continue to monitor for now . [id number] HALEY WY[facility] on [address] [place] [address] 10/06/2023 10:25:53 10/18/2023 12:16:47 Altered mental status 430528321 R41.82 see hpiconcern for hepatic encephalop athy due to hxsend to ER for further evaluation [id number] HALEY WY[facility] on [address] [place] [address] 10/12/2023 13:49:36 10/18/2023 15:10:16 Hepatic encephalopathy 80147727 K76.82 resolved in acute care/see hpiimaging with no acute processCon tinue lactulose, rifaximin, Lasix, spironolac toneFollow -up outpatient GI Congestive heart failure 34781496 I50.9 continue furosemide 20 mg BIDcontinu e spironolac tone 12.5 mg BIDlow salt diet.monit or weight Pancytopenia 382104938 D 61.818 wbc 3.41-Hgb 7.3-HCT 23.2Possib ly due to alcohol abuseWill continue to monitor CBC [id number] HALEY WYATT [facility] on [address] [place] [address] 10/16/2023 13:03:21 11/22/2023 15:10:28 Hepatic encephalopathy 57684279 K76.82 resolved in acute care/see hpiimaging with no acute processCon tinue lactulose, rifaximin, Lasix, spironolac toneFollow -up outpatient GI Congestive heart failure 49133037 I50.9 continue furosemide 20 mg BIDcontinu e spironolac tone 12.5 mg BIDlow salt diet.monit or weight Pancytopenia 140335879 D 61.818 see aboveimpro kiki hgb 8.8- Plt 68Possibly due to alcohol abuseWill continue to monitor CBC [id number] HALEY WYATT [facility] on [address] [place] [address] 10/24/2023 11:18:12 11/03/2023 11:47:28 Hepatic encephalopathy 98540919 K76.82 alert and oriented x's 2 today unsure of date.resol kiki in acute care/see hpiimaging with no acute processCon tinue lactulose, rifaximin, Lasix, spironolac toneFollow -up outpatient GI Congestive heart failure 71084620 I50.9 Stablke, no reported sxcontinue furosemide 20 mg BIDcontinu e spironolac tone 12.5 mg BIDlow salt diet.monit or weight Pain of le ft shoulder joint [id number] 0793316 M25.512 see hpixray 3 viewstylen ol 975 mg scheduledm otrin 600 mg scheduled. PT referral for pain with abduction. [id number] HALEY WYATT [facility] on [address] [place] [address] 10/27/2023 09:08:50 11/03/2023 12:28:46 Hepatic encephalopathy 13065715 K76.82 appears to be a baseline status, however he appears disoriente d at times.Cont inue lactulose, rifaximin, Lasix, spironolac toneFollow -up outpatient GI Congestive heart failure 90920044 I50.9 Stablecont inue furosemide 20 mg BIDcontinu e spironolac tone 12.5 mg BIDlow salt diet.monit or weight Pain of le ft shoulder joint [id number] 7427420 M25.512 Xray completed, results reviewed with patient: Mild degenerati on of the left shoulder; no acute fracture or dislocatio n. continue with:tylen ol 975 mg scheduledm otrin 600 mg scheduled. PT referral for pain with abduction. [id number] HALEY WYATT [facility] on [address] [place] [address] 11/08/2023 08:13:22 11/22/2023 16:43:01 Daisy-Zee tear 218839985 K22.6 2 days of melena with coffee-kell und emesis on presentati on.GI consulted and performed upper endoscopy on 10/31, evidence of daisy zee tear, gastric ulcers s/p clip placement. continue PPI omeprazole 40 mg twice daily.Carv edilol started as per recommenda tions for esophageal varicesPat ient was advised to avoid NSAID Esophageal varices 27107 008 I85.00 Started on carvedilol 6.25 mg bidomepraz ole 40 mg bidsucralf ate 1 gm BID Anemia 849941756 D64.9 Hgb 6.4 on presentati on to acute careDue to upper GI bleed,Rece ived 3 units of PRBC in acute careCarved ilol started for varices [id number] HALEY WYATT [facility] on [address] [place] [phone] 11/14/2023 07:57:53 12/01/2023 10:08:54 Daisy-Zee tear 667691361 K22.6 11/14 there has been no reported couging and vomiting. 2 days of melena with coffee-kell und emesis on presentati on.GI consulted and performed upper endoscopy on 10/31, evidence of daisy zee tear, gastric ulcers s/p clip placement. continue PPI omeprazole 40 mg twice daily.Carv edilol started as per recommenda tions for esophageal varicesPat ient was advised to avoid NSAID Esophageal varices 14591 008 I85.00 stableStar forrest on carvedilol 6.25 mg bidomepraz ole 40 mg bidsucralf ate 1 gm BID Anemia 245161977 D64.9 11/14will recheck labspatien t denies excess fatigue, weakness, shortness of breathdoes not appear pale, color normal. Hgb 6.4 on presentati on to acute careDue to upper GI bleed,Rece ived 3 units of PRBC in acute careCarved ilol started for varices [id number] HALEY WYATT [facility] on [address] [place] [phone] 11/17/2023 08:07:13 12/01/2023 11:37:06 Daisy-Zee tear 739662942 K22.6 stable, There has been no new reported sx.2 days of melena with coffee-kell und emesis on presentati on.GI consulted and performed upper endoscopy on 10/31, evidence of daisy zee tear, gastric ulcers s/p clip placement. continue PPI omeprazole 40 mg twice daily.Carv edilol started as per recommenda tions for esophageal varicesPat ient was advised to avoid NSAID Esophageal varices 98691 008 I85.00 stableStar forrest on carvedilol 6.25 mg bidomepraz ole 40 mg bidsucralf ate 1 gm BID Anemia 564698860 D64.9 11/15: hgb 8.0 hct 25.6will recheck labs Hgb 6.4 on presentati on to acute careDue to upper GI bleed,Rece ived 3 units of PRBC in acute careCarved ilol started for varices [id number] Lis Oconnell MD [facility] on [address] [place] [address] 11/24/2023 08:20:43 11/29/2023 17:59:33 Harmful pattern of use of alcohol 27901868 F10.10 thiamine 100 mg dailyfolic acid 1 gm dailyMVI dailyacamp rosate 666 mg tidinterdi sciplinary support for sobrietywi ll monitor and support as needed Upper gastrointestinal bleeding 86460454 K92.89 with history varices, Daisy Zee tear:sucra lfate 1 gm bidomepraz ole 40 mg [id number] monitoravo id NSAIDs Alcoholic cirrhosis 4200 20186 K70.31 Xifaxan 550 mg bidspirono lactone 12.5 mg bidfurosem eliana 20 mg dailylactu lose 40gm tidwill monitor Esophageal varices 29220 008 I85.00 see meds for history UGI bleed:also carvedilol 6.25 mg bidwill monitor [id number] BRADY HOGAN NP [facility] on [address] [place] [address] 11/28/2023 09:53:56 12/01/2023 12:57:26 Harmful pattern of use of alcohol 02937256 F10.10 thiamine 100 mg dailyfolic acid 1 gm dailyMVI dailyacamp rosate 666 mg tidinterdi sciplinary support for sobrietywi ll monitor and support as needed Upper gastrointestinal bleeding 91335505 K92.89 with history varices, Daisy Zee tear:sucra lfate 1 gm bidomepraz ole 40 mg [id number] monitoravo id NSAIDs Alcoholic cirrhosis 4200 15518 K70.31 Xifaxan 550 mg bidspirono lactone 12.5 mg bidfurosem eliana 20 mg dailylactu lose 40gm tidwill monitor Esophageal varices 81222 008 I85.00 see meds for history UGI bleed:carv edilol 6.25 mg bidwill monitor Health Concerns Section Related Observation LastModified by Organization Detai ls LastModified Time None Recorded Concern Status LastModified by Organization Details LastModified Time None Recorded Advance Directives Directive Y: Payers Insurance Date Sequence Insurance Name Policy Number Policy Yip Covered Member ID Yip Member ID Guarantor Name 04/19/2024 1 [place] [employer] Charbel Delgado [id number] Cahrbel Delgado Notes Date Note Type Note Provider [...] few weeks. Molst: Fullcode HALEY WYATT [address], [address], [place], [address], [facility] 11/08/2023 16:31:23 11/14/2023 text/html Patient is 53-ye ar-old male seen today for acute rounding visit. Today he is stable, he was sent to ED on 11/09 for hgb noted 7.0 and had repeat labs in ED hgb 8.1. He returned to [facility] the same evening and has been [...] in a few weeks. HALEY WYATT [address], [place], [address], [facility] 11/14/2023 21:53:05 11/17/2023 text/html Patient is 53-ye [...] no acute nursing concerns. HALEY WYATT [address] [facility], [address], [place], [address], [facility] 11/17/2023 13:21:44 11/24/2023 text/html This 53 year old male roasterman care resident is seen today for routine rounding visit and acute rounding visit. Medical history is remarkable for history of alcohol use disorder with alcoholic cirrhosis, HFpEF, hypertension, ADHD, anxiety, depression Patient was sent out of facility to ER at [facility] on 10/30/23 with melena and coffee-ground [...] full code assumed Lis Oconnell MD [address] [facility], [address], [place], [address], [facility] 11/24/2023 12:23:26 11/28/2023 text/html seen today for a cute rounding visit, CAOx3 he is complaining about being bored, independent in room, gait steady, mood stable, staff report no concerns BRADY HOGAN, [place] [address] [facility], [address], [place], [address], [facility] 11/28/2023 10:23:34
[2025-05-21 21:18] LABS: Cannabinoid Screen Urine Not Detected (Not Detect)
--- NOTE | 2025-05-21 21:20 | ED.GENADULT ---
HPI - General Adult General Chief complaint: General Medical Stated complaint: etoh , bilater leg pain Time Seen by Provider: 05/21/25 20:09 History of Present Illness HPI narrative: Patient is a 55-year-old male with a long history of ETOH. Found on the street. Complaining of pain to his legs. Has a history of the same there is no trauma. There is no fever no chills. Had previous x-ray and Doppler of the lower extremity done they are all negative. Patient was drinking heavily today was sent in for further evaluation he denies any suicidal homicidal ideation. The pain is similar to previous bouts. He refused oxygen earlier . However patient's current O2 sat is 94% on room air Related Data Home Medications ?Medication ?Instructions ?Recorded ?Confirmed lactulose 10 gram/15 mL oral 30 ml PO TID 02/01/25 03/03/25 solution omeprazole 40 mg capsule,delayed 40 mg PO DAILY@0630 02/01/25 03/03/25 release Previous Rx's ?Medication ?Instructions ?Recorded acetaminophen 325 mg tablet 975 mg (3 x 325 mg) PO Q6H PRN 12/17/24 Pain, Mild 1-3,Fever,Headache #30 tabs magnesium oxide 400 mg (241.3 mg 400 mg PO DAILY #30 tabs 12/17/24 magnesium) tablet sodium chloride 0.65 % nasal spray 1 spray intranasal Q1H PRN Dryness 12/17/24 aerosol (Deep Sea Nasal) #44 mL sucralfate 1 gram tablet (Carafate) 1 g PO BID #60 tabs 12/17/24 folic acid 1 mg tablet 1 mg PO DAILY #90 tabs 02/04/25 thiamine mononitrate (vit B1) 100 100 mg PO DAILY #90 tabs 02/04/ mg tablet spironolactone 25 mg tablet 25 mg PO DAILY #90 tabs 02/13/25 Allergies Allergy/AdvReac Type Severity Reaction Status Date / Time No Known Allergies (No Known Allergy Verified 05/21/25 20:25 Allergies*) Review of Systems Review of Systems: No fever no chills no chest pain no systemic complaints Yes all other systems are reviewed and are negative PMFSH Past Medical History Attestation statement: The following information was validated with the patient. Medical History CHF (congestive heart failure) Alcohol use disorder Alcohol abuse Acute hypoxemic respiratory failure Anemia Pneumonia Alcohol withdrawal syndrome Pancytopenia Alcohol abuse Thrombocytopenia Esophageal varices Acute on chronic anemia Alcoholic liver disease Aspiration pneumonia Thrombocytopenia Malnutrition CHF (congestive heart failure) Anemia Hypomagnesemia Cirrhosis Thrombocytopenia Acute on chronic anemia CHF (congestive heart failure) Anemia Alcohol abuse Surgical History No history of previous surgery Social History Social History Household Members: None Household Members Other:: homeless Housing: Homeless Housing Other:: Homeless [facility] Do you presently have visiting nurse or other home services: No Unable to assess alcohol history related to: Refusing to respond Alcohol intake: current Alcohol intake frequency: 3 or more drinks per day Alcohol type: beer and hard liquor Comment: 1 assist to bathroom Patient Tobacco Use Status: Former Tobacco user Tobacco use type: Cigarette Smoked in Last 30 Days: No Second Hand Smoke Exposure: No Use of substances other than those prescribed or required for medical reasons: No Advance Directives: Yes Advance Directives on File: Yes Advance Directives Date on File: 07/13/23 service: No Physical Exam ED Vital Signs: Vital Signs - 24 hr 05/21/25 20:24 Temperature 97.9 F Pulse Rate 88 Respiratory Rate 18 Blood Pressure 100/46 L Pulse Oximetry 91 L Oxygen Delivery Method Room Air BMI result Body Mass Index 20.0 Appearance: Alert. Oriented X3. No acute distress. Eyes: Pupils equal, round and reactive to light. ENT: Pharynx normal. Neck: Normal inspection. Neck supple. No lymph nodes noted. No crepitus CVS: Normal heart rate and rhythm. Pulses normal. Normal S1 and S2 Respiratory: No respiratory distress. Breath sounds normal. No Wheezing. No rales Abdomen: Soft and nontender. No rigidity. No distention. good BS x4 Skin: Skin warm and dry. Normal skin color. Normal skin turgor. Extremities: No lower extremity edema. Neurovascular intact to all extremities. No Lacerations. No Rash Neuro: Oriented X 3. No motor deficit. No sensory deficit. Moving all extermities. No slurred speech Medical Decision Making Medical Decision Making MDM Narrative: No acute distress. Patient well-appearing. Pain in the lower extremities chronic. Recheck if O2 sat is 92-93% on room air no distress hungry patient given a sandwich will monitor overnight discharge in a.m.. Differential Diagnosis Differential Diagnoses: The differential diagnosis associated with the presentation includes Alcohol intoxication Admission/Observation Consideration of admission/observation: Escalation of care including admission/observation considered Lab Data MDM Lab Attestation statement: I reviewed the patient's lab results. Labs: Lab Results 05/21/25 Range/Units 21:02 Urine Opiates Screen Not Detected (Not Detect) Ur Buprenorphine Scrn Not Detected (Not Detect) ng/mL Ur Oxycodone Screen Not Detected (Not Detect) ng/mL Urine Methadone Screen Not Detected (Not Detect) ng/mL Urine Fentanyl Screen Not Detected (Not Detect) Ur Barbiturates Screen POSITIVE H (Not Detect) Ur Phencyclidine Scrn Not Detected (Not Detect) Ur Amphetamines Screen Not Detected (Not Detect) U Benzodiazepines Scrn Not Detected (Not Detect) Urine Cocaine Screen Not Detected (Not Detect) U Marijuana (THC) Screen Not Detected (Not Detect) External Record Review External record reviewed: Inpatient record Chronic Conditions History of GI bleed history of esophageal varices history of ETOH Social Determinants Patient?s care significantly limited by Social Determinants of Health including: Inadequate housing, Low income, Alcoholism and drug addiction in family and Problems related to primary support group Discharge Plan Discharge Clinical Impression: Alcohol intoxication Instructions: Abuse of Alcohol (DC) Prescriptions: No Action sucralfate [Carafate] 1 gram tablet 1 g PO BID Qty: 60 0RF acetaminophen 325 mg Tablet 975 mg PO Q6H PRN (Reason: Pain, Mild 1-3,Fever,Headache) Qty: 30 0RF magnesium oxide 400 mg (241.3 mg magnesium) Tablet 400 mg PO DAILY Qty: 30 0RF Deep Sea Nasal 0.65 % Aerosol,[place] 1 spray intranasal Q1H PRN (Reason: Dryness) Qty: 44 0RF spironolactone 25 mg tablet 25 mg PO DAILY Qty: 90 0RF lactulose 10 gram/15 mL solution 30 ml PO TID omeprazole 40 mg capsule,delayed release(DR/EC) 40 mg PO DAILY@0630 folic acid 1 mg Tablet 1 mg PO DAILY Qty: 90 0RF thiamine mononitrate (vit B1) 100 mg Tablet 100 mg PO DAILY Qty: 90 0RF Referrals: [facility] [Primary Care Provider, Medical] - 05/23/25 Print Language: Uzbek
--- NOTE | 2025-05-21 21:34 | PC.NURSE ---
Patient provided with turkey sandwich and apple juice, tolerated well.
--- NOTE | 2025-05-21 22:22 | PC.NURSE ---
SPO2 94% RA, RR 16, respirations even and unlabored. Patient provided with warm blanket, currently resting in stretcher bed, NAD. Plan of care ongoing.
[2025-05-22 00:46] VITALS: BP 112/56; PULSE 79; RESP 18; TEMP 36.7; O2SAT 93
[2025-05-22 06:02] VITALS: BP 116/59; PULSE 61; RESP 16; TEMP 37.1; O2SAT 93
[2025-05-22 06:03] VITALS: BP 116/59; PULSE 61; RESP 16; TEMP 37.1; O2SAT 93
== END 2025-05-22 06:17 | disposition home or self-care (01) ==
PROVIDERS: Emergency Provider Emergency Medicine Emergency Medical Services
DX: F10.129 Alcohol abuse with intoxication, unspecified (principal); Y90.9 Presence of alcohol in blood, level not specified; M79.604 Pain in right leg; M79.605 Pain in left leg; Z51.81 Encounter for therapeutic drug level monitoring; Z79.899 Other long term (current) drug therapy; Z87.891 Personal history of nicotine dependence
CPT/HCPCS: 80307; 99284

== ENCOUNTER 2025-05-23 13:24 | Emergency (ER) | payer MEDICAID, SELFPAY ==
[2025-05-23] VITALS (8 sets, daily range): BP systolic 97–124; BP diastolic 50–74; PULSE 69–82; RESP 16–19; TEMP 36.3–37; O2SAT 88–98; BMI 21.1
--- NOTE | ~2025-05-23 | US_ITS ---
CLINICAL HISTORY: bilateral leg swelling Venous duplex ultrasound bilateral lower extremity Comparison: None provided Findings: The visualized deep veins are fully compressible with normal Doppler color flow and spectral tracings. No popliteal cyst. IMPRESSION: 1. Negative for bilateral lower extremity deep vein thrombosis. This document has been electronically signed by: Edith Palomares MD on 05/23/2025 19:11:02
--- NOTE | ~2025-05-23 | XR_ITS ---
EXAMINATION: XR CHEST 2 VIEWS HISTORY: sob COMPARISON: Comparison is made with the prior examination dated 05/05/2025. FINDINGS: PA and lateral views of the chest are submitted. The lungs are expanded and clear. There is no pleural effusion, pneumothorax, or pulmonary vascular congestion. The heart is enlarged which is a new finding. There is a severe compression deformity of a midthoracic vertebral body without change. XR/XR chest 2V IMPRESSION: New cardiomegaly. The lungs are clear. Electronically signed by: Dony Nunn MD 05/23/2025 03:40 PM EDT
--- NOTE | 2025-05-23 13:47 | PC.NURSE ---
biba the side of the street after patient called d/t swelling in ankles bilaterally w/ associated pain x a few weeks. pt noted to be 88% on RA - now on 2L via NC w/ good effect @ 94%. pt denies any chest pain/palpitations/sob/dizziness/lightheadedness. 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 neuros intact. answering questions/following commands appropriately. vss and up to aside from slightly soft BP and being hypoxic. pt noted to 88% on RA - placed on 2L via NC w/ good effect. no apparent respiratory distress noted. no sob/wob noted. respirations even/unlabored. belongings searched - no contraband found. patient's belongings remain bedside at this time. tech bedside obtaining labs. plan of care ongoing.
[2025-05-23 13:55] LABS: MANUAL DIFF FLAG NO
[2025-05-23 13:56] LABS: Hematocrit 31.1 % (42.0-52.0); Hemoglobin 10.2 g/dl (14.0-18.0); Imm Gran Abs Auto 0.00 X10*3/uL (0.00-0.03); Imm Gran Pct Auto 0.0 % (0.0-0.4); Lymphocytes Absolute Auto 0.9 X10*3/uL (1.2-4.9); Mean Corpuscular HGB Conc 32.8 g/dl (31.0-36.0); Mean Corpuscular Hemoglobin 30.8 pg (27.0-33.0); Mean Corpuscular Volume 94.0 fL (80.0-98.0); NRBC Abs Auto 0.000 X10*3/uL (0.0-0.012); NRBC Pct Auto 0.0 /100WBC (0.0-0.2); Red Blood Count 3.31 X10*6/uL (4.60-5.80); White Blood Count 2.7 X10*3/uL (4.8-10.8)
--- OUTSIDE RECORDS SUMMARY | 2025-05-23 13:57 | XMS_ITS | Data Portability ---
Author Organization [facility], Main Office Address [address] [address] [address] [place] [address] Care Team Providers Care Oncology Specialist Name Role Phone [facility] ([facility] OTHER Assessment Encounter Date Assessment Date Assessment [...] Time Harmful pattern of use of alcohol 17767948 Active 2022 HALEY WYATT [address] [facility], [address], [place], [address], [facility] 3 16:10:20 Alcoholic cirrhosis 989266367 Active 2022 HALEY WYATT [address] [place] [address], [address], [place], [address], [facility] 3 16:10:32 Anemia 340892014 Active 2022 HALEY WYATT [address] [place] [address], [address], [place], [address], [facility] 3 16:10:45 Hepatic encephalop athy 92056924 Active 2022 HALEY WYATT [address] [facility], [address], [place], [address], [facility] 3 16:11:37 Acute respirator y failure 96926165 Active 2022 HALEY WYATT [address] [place] [address], [address], [place], [address], [facility] 3 16:12:23 Laboratory finding abnormal Active 2022 hypokalemi a hypomagnes ium pancytopen ua repleted in acute care. mag oxide 400 mg BID HALEY WYATT [address] [facility], [address], [place], [address], [facility] 3 16:40:30 Congestive heart failure 03429339 Active 2022 HALEY WYATT [address] [facility], [address], [place], [address], [facility] 3 16:25:07 Homeless 47692732 Active 2022 HALEY WYATT [address] [place] [address], [address], [place], [address], [facility] 3 16:55:00 Pancytopen ia 184006487 Active 2022 HALEY WYATT [address] [place] [address], [address], [place], [address], [facility] 3 21:48:09 Esophageal varices 95348121 Active 2022 HALEY WYATT [address] [place] [address], [address], [place], [address], [facility] 3 16:19:34 Problem Notes None recorded. Medical Equipment None Reported. Allergies No known drug allergies Vitals Date Recorded Body temperature Oxygen saturation Oxygen saturation in Arterial blood by Pulse oximetry Heart rate Systolic And Diastolic Provider Name and Address Organization Details Last Updated DateTime 4 97.6 [degF] 95 % 95 % 67 /min 110/70 mm[Hg] Lis Oconnell MD [address] [place] [address], [facility] [address], [place], [address], [facility] 4 08:21:06 Date Recorded Heart rate Respiratory rate Body temperature Oxygen saturation Oxygen saturation in Arterial blood by Pulse oximetry Systolic And Diastolic Provider Name and Address Organization Details Last Updated DateTime 4 67 /min 16 /min 97.6 [degF] 95 % 95 % 107/66 mm[Hg] BRADY HOGAN NP [address] [place] [address], [address], [place], [address], [facility] 4 10:20:23 Social History Question Answer Notes LastModified by Organizat ion Details LastModified Time Tobacco Smoking Status Former Smoker HALEY WYATT [address] [facility], [address], [place], [address], [facility] 09/12/2023 16:57:06 Do You Have An Advance Directive? Yes Information not available 09/12/2023 What Is Your Level Of Caffeine Consumption? None Information not available 09/12/2023 What Is Your Code Status? Full Code Information not available 09/12/2023 Where Do You Live? Other Homeless Information not available 09/12/2023 Legal Guardian? No HCP/not Invoked Information not available 09/12/2023 Do You Have A Medical Power Of Preschool Teacher Assistant? No HCP/brother Information not available 09/12/2023 What [...] adsorbed 7 completed Mojgan jain DC - [facility] 03/01/2024 11:06:00 Past Encounters Encounter ID Performer Location Encounter Start Date Encounter Closed Date Diagnosis/Indication Diagnosis SNOMED-CT Code Diagnosis ICD10 Code Diagnosis Note [id number] HALEY WYATT [facility] on [address] [place] [address] 09/12/2023 08:36:44 09/15/2023 08:04:55 Hepatic encephalopathy 62773519 K76.82 resolved in acute care/see hpistarted on lactuloser ifaximin 550 mg BIDlactulo se 40 g TID. Acute resp iratory failure 99304458 J96.00 with hypoxia d/t to acute on chronic heart failure-di uresed w/IV lasix resolved in acute care Anemia 106616588 D64.9 see hpiCT scan with distal esophageal varices.- EGD suspected gastric varies as source of bleedfollo w up with GI in 4 weeks for repeat EGD Congestive heart failure 24744715 I50.9 with preserved ejection fractionCT scan showed small plueral effusionCX R with bibasilar opacitiesc ontinue furosemide 20 mg BIDcontinu e spironolac tone 12.5 mg BIDlow salt diet.monit or weight Harmful pa ttern of use of alcohol 27421680 F10.10 with acute withdrawal in acute care tx with phenobarbi germania taper.decl ined recovery support in acute carethiami ne 100 mg dailyfolic acid 1 mg daily Bleeding g astric varices 62575358 I86.4 source of anemiaomep razole [address] dailysucra lfate 1 gm BIDcontinu e PPI and sucralfate Homeless 01770088 Z59.00 Social service refer for community resources. [id number] Lis Oconnell MD [facility] on [address] [place] [address] 09/13/2023 05:12:10 09/15/2023 08:33:31 Acute on chronic diastolic heart failure 414332435 I50.33 improved:s pironolact one 12.5 mg bidfurosem eliana 20 mg bidwill monitor Harmful pa ttern of use of alcohol 15638789 F10.10 thiamine 100 mg dailyfolic acid 1 gm dailyinter disciplina ry support for sobrietywi ll monitor and support as needed Bleeding e sophageal varices 01282253 I85.01 s/p blood transfusio ns, octeotride , banding/he mospray:om eprazole 40 mg dailysucra lfate 1 gm bidwill monitor Alcoholic cirrhosis 4200 77570 K70.31 Xifaxan 550 mg bidspirono lactone 12.5 mg bidfurosem eliana 20 mg bidwill monitor Hepatic encephalopathy 03178450 K76.82 lactulose 40 gm tidwill monitor [id number] HALEY WYATT [facility] on [address] [place] [address] 09/18/2023 11:37:36 09/20/2023 15:12:00 Congestive heart failure 29534850 I50.9 continue furosemide 20 mg BIDcontinu e spironolac tone 12.5 mg BIDlow salt diet.monit or weight Harmful pa ttern of use of alcohol 12345371 F10.10 will consider acamprosta te 666 mg TID.thiami ne 100 mg dailyfolic acid 1 mg daily Bleeding g astric varices 61945294 I86.4 source of anemiaomep razole [address] dailysucra lfate 1 gm BIDcontinu e PPI and sucralfate Hepatic encephalopathy 21155300 K76.82 resolved in acute care/see hpistarted on lactuloser ifaximin 550 mg BIDlactulo se 40 g TID.- reports loose stool x's 1 daily. will continue to monitor for now . [id number] HALEY WYATT [facility] on [address] [place] [address] 10/06/2023 10:25:53 10/18/2023 12:16:47 Altered mental status 334046315 R41.82 see hpiconcern for hepatic encephalop athy due to hxsend to ER for further evaluation [id number] HALEY WYATT [facility] on [address] [place] [address] 10/12/2023 13:49:36 10/18/2023 15:10:16 Hepatic encephalopathy 92418242 K76.82 resolved in acute care/see hpiimaging with no acute processCon tinue lactulose, rifaximin, Lasix, spironolac toneFollow -up outpatient GI Congestive heart failure 57138042 I50.9 continue furosemide 20 mg BIDcontinu e spironolac tone 12.5 mg BIDlow salt diet.monit or weight Pancytopenia 855852963 D 61.818 wbc 3.41-Hgb 7.3-HCT 23.2Possib ly due to alcohol abuseWill continue to monitor CBC [id number] HALEY WYATT [facility] on [address] [place] [address] 10/16/2023 13:03:21 11/22/2023 15:10:28 Hepatic encephalopathy 54694504 K76.82 resolved in acute care/see hpiimaging with no acute processCon tinue lactulose, rifaximin, Lasix, spironolac toneFollow -up outpatient GI Congestive heart failure 62888423 I50.9 continue furosemide 20 mg BIDcontinu e spironolac tone 12.5 mg BIDlow salt diet.monit or weight Pancytopenia 582900302 D 61.818 see aboveimpro kiki hgb 8.8- Plt 68Possibly due to alcohol abuseWill continue to monitor CBC [id number] HALEY WYATT [facility] on [address] [place] [address] 10/24/2023 11:18:12 11/03/2023 11:47:28 Hepatic encephalopathy 29966974 K76.82 alert and oriented x's 2 today unsure of date.resol kiki in acute care/see hpiimaging with no acute processCon tinue lactulose, rifaximin, Lasix, spironolac toneFollow -up outpatient GI Congestive heart failure 86998392 I50.9 Stablke, no reported sxcontinue furosemide 20 mg BIDcontinu e spironolac tone 12.5 mg BIDlow salt diet.monit or weight Pain of le ft shoulder joint [id number] 0573703 M25.512 see hpixray 3 viewstylen ol 975 mg scheduledm otrin 600 mg scheduled. PT referral for pain with abduction. [id number] HALEY WYATT [facility] on [address] [place] [address] 10/27/2023 09:08:50 11/03/2023 12:28:46 Hepatic encephalopathy 04740992 K76.82 appears to be a baseline status, however he appears disoriente d at times.Cont inue lactulose, rifaximin, Lasix, spironolac toneFollow -up outpatient GI Congestive heart failure 86301933 I50.9 Stablecont inue furosemide 20 mg BIDcontinu e spironolac tone 12.5 mg BIDlow salt diet.monit or weight Pain of le ft shoulder joint 6823925950 9797899 M25.512 Xray completed, results reviewed with patient: Mild degenerati on of the left shoulder; no acute fracture or dislocatio n. continue with:tylen ol 975 mg scheduledm otrin 600 mg scheduled. PT referral for pain with abduction. [id number] HALEY WYATT [facility] on [address] [place] [address] 11/08/2023 08:13:22 11/22/2023 16:43:01 Daisy-Zee tear 271836589 K22.6 2 days of melena with coffee-kell und emesis on presentati on.GI consulted and performed upper endoscopy on 10/31, evidence of daisy zee tear, gastric ulcers s/p clip placement. continue PPI omeprazole 40 mg twice daily.Carv edilol started as per recommenda tions for esophageal varicesPat ient was advised to avoid NSAID Esophageal varices 19992 008 I85.00 Started on carvedilol 6.25 mg bidomepraz ole 40 mg bidsucralf ate 1 gm BID Anemia 912116525 D64.9 Hgb 6.4 on presentati on to acute careDue to upper GI bleed,Rece ived 3 units of PRBC in acute careCarved ilol started for varices [id number] HALEY WYATT [facility] on [address] [place] [address] 11/14/2023 07:57:53 12/01/2023 10:08:54 Daisy-Zee tear 175523063 K22.6 11/14 there has been no reported couging and vomiting. 2 days of melena with coffee-kell und emesis on presentati on.GI consulted and performed upper endoscopy on 10/31, evidence of daisy zee tear, gastric ulcers s/p clip placement. continue PPI omeprazole 40 mg twice daily.Carv edilol started as per recommenda tions for esophageal varicesPat ient was advised to avoid NSAID Esophageal varices 79567 008 I85.00 stableStar forrest on carvedilol 6.25 mg bidomepraz ole 40 mg bidsucralf ate 1 gm BID Anemia 756576159 D64.9 11/14will recheck labspatien t denies excess fatigue, weakness, shortness of breathdoes not appear pale, color normal. Hgb 6.4 on presentati on to acute careDue to upper GI bleed,Rece ived 3 units of PRBC in acute careCarved ilol started for varices [id number] HALEY WYATT [facility] on [address] [place] [address] 11/17/2023 08:07:13 12/01/2023 11:37:06 Daisy-Zee tear 604890530 K22.6 stable, There has been no new reported sx.2 days of melena with coffee-kell und emesis on presentati on.GI consulted and performed upper endoscopy on 10/31, evidence of daisy zee tear, gastric ulcers s/p clip placement. continue PPI omeprazole 40 mg twice daily.Carv edilol started as per recommenda tions for esophageal varicesPat ient was advised to avoid NSAID Esophageal varices 67404 008 I85.00 stableStar forrest on carvedilol 6.25 mg bidomepraz ole 40 mg bidsucralf ate 1 gm BID Anemia 502774010 D64.9 11/15: hgb 8.0 hct 25.6will recheck labs Hgb 6.4 on presentati on to acute careDue to upper GI bleed,Rece ived 3 units of PRBC in acute careCarved ilol started for varices [id number] Lis Oconnell MD [facility] on [address] [place] [address] 11/24/2023 08:20:43 11/29/2023 17:59:33 Harmful pattern of use of alcohol 40569369 F10.10 thiamine 100 mg dailyfolic acid 1 gm dailyMVI dailyacamp rosate 666 mg tidinterdi sciplinary support for sobrietywi ll monitor and support as needed Upper gastrointestinal bleeding 43477567 K92.89 with history varices, Daisy Zee tear:sucra lfate 1 gm bidomepraz ole 40 mg [id number] monitoravo id NSAIDs Alcoholic cirrhosis 4200 93598 K70.31 Xifaxan 550 mg bidspirono lactone 12.5 mg bidfurosem eliana 20 mg dailylactu lose 40gm tidwill monitor Esophageal varices 85454 008 I85.00 see meds for history UGI bleed:also carvedilol 6.25 mg bidwill monitor [id number] BRADY HOGAN NP [facility] on [address] [place] [address] 11/28/2023 09:53:56 12/01/2023 12:57:26 Harmful pattern of use of alcohol 98740470 F10.10 thiamine 100 mg dailyfolic acid 1 gm dailyMVI dailyacamp rosate 666 mg tidinterdi sciplinary support for sobrietywi ll monitor and support as needed Upper gastrointestinal bleeding 01240998 K92.89 with history varices, Daisy Zee tear:sucra lfate 1 gm bidomepraz ole 40 mg c43elnov monitoravo id NSAIDs Alcoholic cirrhosis 4200 02635 K70.31 Xifaxan 550 mg bidspirono lactone 12.5 mg bidfurosem eliana 20 mg dailylactu lose 40gm tidwill monitor Esophageal varices 09411 008 I85.00 see meds for history UGI bleed:carv edilol 6.25 mg bidwill monitor Health Concerns Section Related Observation LastModified by Organization Detai ls LastModified Time None Recorded Concern Status LastModified by Organization Details LastModified Time None Recorded Advance Directives Directive Y: Payers Insurance Date Sequence Insurance Name Policy Number Policy Yip Covered Member ID Yip Member ID Guarantor Name 04/19/2024 1 [place]: [id number] Charbel Delgado [id number] Charbel Delgado Notes Date Note Type Note [...] few weeks. Molst: Fullcode HALEY WYATT [address], [address], [place], [address], Intern 11/08/2023 16:31:23 11/14/2023 text/html Patient is 53-ye ar-old male seen today for acute rounding visit. Today he is stable, he was sent to ED on 11/09 for hgb noted 7.0 and had repeat labs in ED hgb 8.1. He returned to [facility] the same evening and has [...] in a few weeks. HALEY WYATT [address], [place], [address], Intern 11/14/2023 21:53:05 11/17/2023 text/html Patient is 53-ye [...] no acute nursing concerns. HALEY WYATT [address] [facility], [address], [place], [address], [facility] 11/17/2023 13:21:44 11/24/2023 text/html This 53 year old male rn long term care care resident is seen today for routine rounding visit and acute rounding visit. Medical history is remarkable for history of alcohol use disorder with alcoholic cirrhosis, HFpEF, hypertension, ADHD, anxiety, depression Patient was sent out of facility to ER at [facility] on 10/30/23 with melena and [...] full code assumed Lis Oconnell MD [address] [facility], [address], [place], [address], [facility] 11/24/2023 12:23:26 11/28/2023 text/html seen today for a cute rounding visit, CAOx3 he is complaining about being bored, independent in room, gait steady, mood stable, staff report no concerns BRADY HOGAN, [place] [address] [facility], [address], [place], [address], [facility] - [facility] 11/28/2023 10:23:34
--- OUTSIDE RECORDS SUMMARY | 2025-05-23 13:57 | XMS_ITS | Encounter Summary ---
Author Organization [employer] Address [address] [facility] [address] [place] [address] Care Team Providers Care Cupola Tender Helper Name Role Phone Missy Milner RN Unavailable [phone] Conor Vidal Unavailable Encounter Details Date Type Department Care Team ([facility] st Contact Info) Description 05/19/2025 Patient Outreach [facility] [address] [place] [address] Missy Milner RN [address] [place] [address] Social History Tobacco Use Types Packs/Day Years [...] on file documented as of this encounter Visit Diagnoses Not on filedocumented in this encounter Care Teams Cupola Tender Helper Relationship Specialty Start Date End Date Missy Milner RN [address] [place] [address] Registered Nurse Family Medicine 04/23/25 Conor Vidal 04/23/25 documented as of this encounter
[2025-05-23 13:59] LABS: Platelet Count 45 X10*3/uL (160-400)
[2025-05-23 14:13] LABS: Alanine Aminotransferase 10 U/L (0-40); Albumin Level 3.3 g/dL (3.5-5.0); Alkaline Phosphatase 180 U/L (39-117); Anion Gap 14 (12-20); Aspartate Amino Transferase 56 U/L (5-37); Blood Urea Nitrogen 10 mg/dL (9-16); Calcium 8.2 mg/dL (8.4-10.2); Carbon Dioxide 18 mmol/L (22-29); Chloride 113 mmol/L (96-108); Creatinine Clr Calc Pharmacy 92.0; Estimated Glomerular Filt Rate > 60; Lipase 21 U/L (8-78); Magnesium 1.9 mg/dL (1.6-2.6); Potassium 3.9 mmol/L (3.3-5.1); Sodium 141 mmol/L (135-145); Total Protein 7.6 g/dL (6.5-8.0)
[2025-05-23 14:19] LABS: B Type Natriuretic Peptide 165 pg/mL (<100)
--- NOTE | 2025-05-23 14:33 | ED_ITS ---
HPI - General Adult General Chief complaint: General Medical Stated complaint: SWELLING IN BOTH ANKLES Time Seen by Provider: 05/23/25 13:58 Source: patient Mode of arrival: ambulatory Limitations: no limitations History of Present Illness ED Provider: Kim Foster HPI narrative: 55 yold male with pmh of alcohol abuse, hypoxia, CHF presents to the ED alcohol intoxication brought by EMS for swelling of ankles bilaterall with some pain. patient states no recent trauma. Patient denies any chest pain, shortness of breath, palpitation, dizziness, or lighteadedness. Related Data Home Medications ?Medication ?Instructions ?Recorded ?Confirmed lactulose 10 gram/15 mL oral 30 ml PO TID 02/01/25 solution omeprazole 40 mg capsule,delayed 40 mg PO DAILY@0630 0 02/01/25 03/03/25 release Previous Rx's ?Medication ?Instructions ?Recorded acetaminophen 325 mg tablet 975 mg (3 x 325 mg) PO Q6H PRN 12/17/24 Pain, Mild 1-3,Fever,Headache #30 tabs magnesium oxide 400 mg (241.3 mg 400 mg PO DAILY #30 t abs 12/17/24 magnesium) tablet sodium chloride 0.65 % nasal spray 1 spray intranasal Q1H PRN Dryness 12/17/24 aerosol (Deep Sea Nasal) #44 mL sucralfate 1 gram tablet (Carafate) 1 g PO BID #60 tab s 12/17/24 folic acid 1 mg tablet 1 mg PO DAILY #90 tabs 02/04 thiamine mononitrate (vit B1) 100 100 mg PO DAILY #90 tabs 02/04/ mg tablet spironolactone 25 mg tablet 25 mg PO DAILY #90 tabs Allergies Allergy/AdvReac Type Severity Reaction Status Date / Time No Known Allergies (No Known Allergy Verified 05/24/25 15:26 Allergies*) Review of Systems 2 Review of Systems: alochol intox, ankle swelling Yes all other systems are reviewed and are negative PMF Past Medical History Medical History CHF (congestive heart failure) Alcohol use disorder Alcohol abuse Acute hypoxemic respiratory failure Anemia Pneumonia Alcohol withdrawal syndrome Pancytopenia Alcohol abuse Thrombocytopenia Esophageal varices Acute on chronic anemia Alcoholic liver disease Aspiration pneumonia Thrombocytopenia Malnutrition CHF (congestive heart failure) Anemia Hypomagnesemia Cirrhosis Thrombocytopenia Acute on chronic anemia CHF (congestive heart failure) Anemia Alcohol abuse Surgical History No history of previous surgery Social History Social History Household Members: None Household Members Other:: homeless Housing: Homeless Housing Other:: Homeless nursing home Do you presently have visiting nurse or other home services: No Unable to assess alcohol history related to: Refusing to respond Alcohol intake: current Alcohol intake frequency: 3 or more drinks per day Alcohol type: beer and hard liquor Comment: 1 assist to bathroom Patient Tobacco Use Status: Former Tobacco user Tobacco use type: Cigarette Smoked in Last 30 Days: No Second Hand Smoke Exposure: No Use of substances other than those prescribed or required for medical reasons: No Advance Directives: Yes Advance Directives on File: Yes Advance Directives Date on File: 07/13/23 Do you have a plan to hurt others: No Plan Nutrition Risks: No Nutritional Risk service: No Physical Exam ED Vital Signs: Vital Signs - 24 hr 05/23/25 22:40 05/24/25 02:20 05/24/25 06:46 Temperature 98.6 F 98.4 F 98.5 F Pulse Rate 73 77 75 Respiratory Rate Blood Pressure 101/52 L 120/60 112/55 L Pulse Oximetry 93 93 93 Oxygen Delivery Method Room Air Room Air Room Air 05/24/25 07:05 Temperature 98.5 F Pulse Rate 75 Respiratory Rate 16 Blood Pressure 112/55 L Pulse Oximetry 93 Oxygen Delivery Method Room Air BMI result Body Mass Index 21.1 Const General: cooperative, healthy appearing, comfortable, no acute distress, well developed, alert, awake and Physically active Orientation/consciousness: patient oriented x3 HENMT Head: Yes normal to inspection, Yes No palpable skull fracture present, Yes normocephalic and Yes atraumatic Eyes General: appearance normal, both eyes and all related structures Neck Neck: Yes normal visual inspection, Yes full ROM, Yes no lymphadenopathy, Yes no meningeal signs, Yes trachea midline, Yes supple, No anterior neck swelling and No tender Chest Chest palpation & inspection: normal inspection of the chest and normal palpation of entire chest wall Resp Effort & Inspection: normal respiratory effort and able to speak in complete sentences Auscultation: clear to auscultation bilaterally Cardio Jugular venous distension: no JVD Heart sounds: S1 normal heart sound present and S2 normal heart sound present GI Inspection: Yes normal to inspection Palpation (GI): Soft to palpation, not firm, nontender, no guarding and not rigid General: Yes no CVA tenderness Back/Spine/Pelvis Back: no CVA tenderness and No back tenderness Skin General skin exam: no rashes or lesions noted, elasticity normal and turgor normal Neuro General: patient oriented x3, gait normal, tone normal, moves all extremities, Normal light touch and pain sensation, no meningeal signs, no focal motor deficits, CN's II-XI intact bilaterally and normal sensation to monofilament Extrem Other: Positive for bilateral lower extremities with swelling and pitting edema. Negative for any tenderness calf tenderness erythema ecchymosis or deformity. Vascular motor neuro exam intact General: Yes normal to inspection and Yes full ROM Psych Appearance: grossly normal, well kempt and not disheveled Course Reevaluation(s) Reevaluation #1: I Trudy Brannon PA-C have accepted care of the patient and signed out pending delta trop, and discharge once the patient is clinically sober Delta troponin remains negative Medical Decision Making Medical Decision Making MDM Narrative: 55 yold male with pmh of alcohol abuse presents to the ED for alcohol intoxication and bilateral leg swelling. Patient was 88% on room air he was placed on 2 L cannula. 5:00pm: Patient is sleeping comfortably never in any distress. Re-evaluation at rest O2 saturation on fingers 94 95% when placed on ears O2 saturation 97- 100%. Lower O2 saturation may be due to poor perfusion to fingers more than actual hypoxia patient is not in distress. X-ray BNP wants to chest x-ray shows new cardiomegaly without any pleural effussion or vascular congestion. Alcohol level 379. Ultrasound lower extremity pending. Patient had normal ultrasound of the bilateral lower extremities on the 1st which ruled out DVT seems like bilateral leg swelling is chronic. It was discussed with patient for possible admission for mild CHF exacerbation patient refused. Patient continued to refuse admission.. 6:58pm: Patient is sleeping comfortalbe in bed and negative for JVD. 02 saturaion 98 % on fingers. Case was discussed with Executive Vice President Of Sales Attending Dr. Ferguson who agress patient is not in respiratory distress and earlier finger readings are inaccuarte and no need for admissoin. Patient will continue to sober up and be re-evlauted. Negative for any accessory muscle use. 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 Differential Diagnosis Differential Diagnoses: The differential diagnosis associated with the presentation includes (alcohol intox, alcohool abuse, electrolyte fefiencies) Admission/Observation Consideration of admission/observation: Escalation of care including admission/observation considered Lab Data 05/23/25 13:50 05/23/25 13:50 Labs: Lab Results 05/23/25 05/23/25 05/23/25 Range/Units 13:50 16:10 20:17 WBC 2.7 L (4.8-10.8) X10*3/uL RBC 3.31 L (4.60-5.80) X10*6/uL Hgb 10.2 L (14.0-18.0) g/dl Hct 31.1 L (42.0-52.0) % MCV 94.0 (80.0-98.0) fL MCH 30.8 (27.0-33.0) pg MCHC 32.8 (31.0-36.0) g/dl RDW 17.7 H (11.0-16.0) % Plt Count 45 L (160-400) X10*3/uL MPV 11.7 (9.4-12.4) fL Immature Gran % (Auto) 0.0 (0.0-0.4) % Neut % (Auto) 52.0 (45-73) % Lymph % (Auto) 31.4 (20-40) % [place] % (Auto) 12.9 H (2-11) % Eos % (Auto) 2.6 (0-4) % Baso % (Auto) 1.1 (0-2) % Lymph # (Auto) 0.9 L (1.2-4.9) X10*3/uL [place] # (Auto) 0.4 (0.1-1.2) X10*3/uL Eos # (Auto) 0.1 (0.0-0.4) X10*3/uL Baso # (Auto) 0.0 (0.0-0.2) X10*3/uL Abs Immat Gran (auto) 0.00 (0.00-0.03) X10*3/uL Absolute Neuts (auto) 1.4 L (2.0-8.3) x10*3/uL Absolute Nucleated RBC 0.000 (0.0-0.012) X10*3/uL Nucleated RBC % (auto) 0.0 (0.0-0.2) /100WBC Sodium 141 (135-145) mmol/L Potassium 3.9 (3.3-5.1) mmol/L Chloride 113 H (96-108) mmol/L Carbon Dioxide 18 L (22-29) mmol/L Anion Gap 14 (12-20) BUN 10 (9-16) mg/dL Creatinine 0.73 (0.5-1.4) mg/dL Estim Creat Clear Calc 92.0 Estimated GFR > 60 Random Glucose 94 (60-115) mg/dL Calcium 8.2 L D (8.4-10.2) mg/dL Magnesium 1.9 (1.6-2.6) mg/dL Total Bilirubin 0.7 (0.0-1.0) mg/dL Direct Bilirubin 0.4 (0.0-0.5) mg/dL AST 56 H (5-37) U/L ALT 10 (0-40) U/L Alkaline Phosphatase 180 H (39-117) U/L Troponin I High Sens < 2.7 2.7 (<3.5-35.0) ng/L B-Natriuretic Peptide 165 H (<100) pg/mL Total Protein 7.6 (6.5-8.0) g/dL Albumin 3.3 L (3.5-5.0) g/dL Lipase 21 (8-78) U/L Ethyl Alcohol 379 H* mg/dL Influenza Type A (PCR) NEGATIVE (Negative) Influenza Type B (PCR) NEGATIVE (Negative) RSV RNA Qual (PCR) NEGATIVE (Negative) SARS-CoV-2 RNA (RT-PCR) NEGATIVE (Negative) Independent Interpretation I performed an independent interpretation of an: EKG (normal sinus) and Plain X- Ray Radiology Impression Discussion of test interpretation with radiology: I have reviewed the radiologist's reading. Independent Historian Clinical information obtained from an independent historian. History obtained from or confirmed by: Other (patient) Chronic Conditions Patient?s care impacted by: Other (CHF) Discharge Plan Discharge Clinical Impression: Alcohol intoxication Patient Disposition: Home, Self-Care Instructions: Alcohol Intoxication (ED), Abuse of Alcohol (ED) Additional Instructions: Alcohol use disorder You were seen in the Emergency Department today for treatment of alcohol use disorder.? If you would like to cut down or stop your alcohol use please consider calling our outpatient Addiction Treatment office:? [facility] (-F [id number]) [address] [place] [address] [address] ? If you experience seizures, vomiting blood, black stools, falls, severe headache, chest pain, fevers, trouble breathing, hallucinations or any other concerns you need to call 911 or seek immediate care. Please stay hydrated. Prescriptions: No Action sucralfate [Carafate] 1 gram tablet 1 g PO BID Qty: 60 0RF acetaminophen 325 mg Tablet 975 mg PO Q6H PRN (Reason: Pain, Mild 1-3,Fever,Headache) Qty: 30 0RF magnesium oxide 400 mg (241.3 mg magnesium) Tablet 400 mg PO DAILY Qty: 30 0RF Deep Sea Nasal 0.65 % Aerosol,[place] 1 spray intranasal Q1H PRN (Reason: Dryness) Qty: 44 0RF spironolactone 25 mg tablet 25 mg PO DAILY Qty: 90 0RF lactulose 10 gram/15 mL solution 30 ml PO TID omeprazole 40 mg capsule,delayed release(DR/EC) 40 mg PO DAILY@0630 folic acid 1 mg Tablet 1 mg PO DAILY Qty: 90 0RF thiamine mononitrate (vit B1) 100 mg Tablet 100 mg PO DAILY Qty: 90 0RF Interventions: ED Discharge Assessment Last Done: 05/24/25 07:05 Discharge Date/Time: 05/24/25 07:08 Print Language: Polish
--- NOTE | 2025-05-23 15:58 | ECG_ITS ---
Test Reason : leg swelling Blood Pressure : */* mmHG Vent. Rate : 64 BPM Atrial Rate : 64 BPM P-R Int : 168 ms QRS Dur : 88 ms QT Int : 450 ms P-R-T Axes : 95 20 21 degrees QTcB Int : 464 ms Normal sinus rhythm Normal ECG When compared with ECG of 19-Apr-2025 09:55, No significant change was found Referred By: Dexter Foster Electronically Signed By: Brayan Negron
--- NOTE | 2025-05-23 16:00 | PC.NURSE ---
Ambulatory O2 trial performed, patient O2 sat 88% on ambulation denies SOB O2 increased to 95% at rest.
[2025-05-23 16:44] LABS: Troponin-I High Sensitivity < 2.7 ng/L (<3.5-35.0)
[2025-05-23 17:00] LABS: Resp Syncy Virus RNA Qual PCR NEGATIVE (Negative); SARS COV2 PCR INHOUSE NEGATIVE (Negative)
[2025-05-23 20:42] LABS: Troponin-I High Sensitivity 2.7 ng/L (<3.5-35.0)
[2025-05-24 02:20] VITALS: BP 120/60; PULSE 77; TEMP 36.9; O2SAT 93
[2025-05-24 06:46] VITALS: BP 112/55; PULSE 75; TEMP 36.9; O2SAT 93
[2025-05-24 07:05] VITALS: BP 112/55; PULSE 75; RESP 16; TEMP 36.9; O2SAT 93
== END 2025-05-24 07:08 | disposition home or self-care (01) ==
PROVIDERS: Physician Assistant; Emergency Provider Emergency Medicine
DX: F10.120 Alcohol abuse with intoxication, uncomplicated (principal); Y90.8 Blood alcohol level of 240 mg/100 ml or more; M79.89 Other specified soft tissue disorders; M79.605 Pain in left leg; M79.604 Pain in right leg; Z03.818 Encounter for observation for suspected exposure to other biological agents ruled out
CPT/HCPCS: 36415; 71046; 80053; 80307; 82248; 83690; 83735; 83880; 84484; 85025; 87637; 93005; 93970; 99284; 99285

== ENCOUNTER → 2025-05-23 14:29 | Outpatient (BNV) | payer MEDICAID, SELFPAY | PROVIDERS: Emergency Provider Emergency Medicine; Visit Provider Radiology Diagnostic Radiology | DX: R22.43 Localized swelling, mass and lump, lower limb, bilateral (principal); R06.02 Shortness of breath; I51.7 Cardiomegaly | CPT/HCPCS: 71046; 93970 ==

== ENCOUNTER → 2025-05-23 15:58 | Outpatient (BNV) | payer MEDICAID, SELFPAY | PROVIDERS: Emergency Provider Emergency Medicine; Visit Provider Internal Medicine Cardiovascular Disease | DX: R22.40 Localized swelling, mass and lump, unspecified lower limb (principal) | CPT/HCPCS: 93010 ==

== ENCOUNTER 2025-05-24 15:03 | Inpatient (IN) | payer MEDICAID, SELFPAY ==
[2025-05-24] VITALS (7 sets, daily range): BP systolic 84–124; BP diastolic 45–59; PULSE 73–82; RESP 16–18; TEMP 36.4–37.5; O2SAT 82–93; BMI 20.3; BMI 19.7
--- NOTE | ~2025-05-24 | XR_ITS ---
CLINICAL HISTORY: short of breath 2 view chest x-ray Comparison: CR/SR - XR CHEST 2V - 05/05/25 14:51 EDT Findings: Pulmonary vascular prominence. No effusion or pneumothorax. No focal infiltrate. Heart size is mildly enlarged. No acute fracture. IMPRESSION: Prominent pulmonary vasculature which may indicate vascular congestion. This document has been electronically signed by: Brandt Johnson MD on 05/24/2025 17:20:17
--- NOTE | 2025-05-24 16:11 | ED_ITS ---
HPI - Alcohol General Chief Complaint: ETOH/Substance Use Stated Complaint: leg pain, swelling Time Seen by Provider: 05/24/25 16:10 Source: patient and EMS Mode of arrival: EMS Limitations: no limitations History of Present Illness ED Provider: JOHANNA LIAO PA-C HPI narrative: 58 year old male with pmhx significant for alcohol abuse, hypoxia, CHF who is well known to our emergency department presents to the ED today after being found wandering in the street by EMS. On EMS arrival, patient was noted to be satting 80% on RA, placed on 2L NC with improvement. At present, he complains of bilateral ankle/ foot pain/swelling x months. Denies chest pain or SOB. Related Data Home Medications ?Medication ?Instructions ?Recorded ?Confirmed No Known Home Meds 05/25/25 05/25/25 Allergies Allergy/AdvReac Type Severity Reaction Status Date / Time No Known Allergies (No Known Allergy Verified 05/24/25 15:26 Allergies*) Review of Systems 2 Review of Systems: Yes all other systems are reviewed and are negative PMFSH Past Medical History Attestation statement: The following information was validated with the patient. Source: old records reviewed and nursing notes reviewed Medical History CHF (congestive heart failure) Alcohol use disorder Alcohol abuse Acute hypoxemic respiratory failure Anemia Pneumonia Alcohol withdrawal syndrome Pancytopenia Alcohol abuse Thrombocytopenia Esophageal varices Acute on chronic anemia Alcoholic liver disease Aspiration pneumonia Thrombocytopenia Malnutrition CHF (congestive heart failure) Anemia Hypomagnesemia Cirrhosis Thrombocytopenia Acute on chronic anemia CHF (congestive heart failure) Anemia Alcohol abuse Surgical History No history of previous surgery Social History Social History Household Members: None Household Members Other:: homeless Housing: Homeless Housing Other:: Homeless detention Do you presently have visiting nurse or other home services: No Unable to assess alcohol history related to: Refusing to respond Alcohol intake: current Alcohol intake frequency: 3 or more drinks per day Alcohol type: beer and hard liquor Comment: pt refuse to have staff remain in BR Patient Tobacco Use Status: Former Tobacco user Tobacco use type: Cigarette Second Hand Smoke Exposure: No Advance Directives Date on File: 07/13/23 service: No Physical Exam ED Vital Signs: Vital Signs - 24 hr 05/24/25 15:22 Temperature 98.6 F Pulse Rate 79 Respiratory Rate 16 Blood Pressure 114/59 L Pulse Oximetry 85 L Oxygen Delivery Method Room Air BMI result Body Mass Index 20.3 Hypoxic, placed on 2 L nasal cannula General: intoxicated however in NAD Skin: Warm, dry, intact. No rashes or lesions. Head: Normocephalic, atraumatic. EENT: Hearing is intact b/l. Conjunctiva clear. PERRLA. EOM intact. Moist mucous membranes.? Neck: Supple without LAD Cardiac: Chest wall symmetric. RRR Lungs: Normal respiratory effort without accessory muscle use. Diminished breath sounds throughout. No adventitious breath sounds. Abdomen: Soft, non-tender, non-distended. No rebound tenderness or guarding. Positive BS x4. Back: No midline spinous or paraspinal tenderness. No step off deformity. Ext: +b/l pedal edema Neuro: AOx3. Normal speech Course Course Course Narrative: CBC showing leukopenia, stable when compared to priors. Normocytic anemia, stable when compared to priors. H&H above transfusion threshold. Chemistry without acute electrolyte abnormality requiring intervention. No RAVI. Liver function around baseline. BNP elevated to 31. Troponin WNL at 4.2. EKG showing normal sinus rhythm, prolonged QT at 438, no acute ischemic changes or ST elevations. Chest x-ray showing pulmonary edema and vascular congestion. > Lasix ordered for concern of CHF > spoke with hospitalist dr. cardona - patient will be admitted to medicine for further management. Patient agreeable. Medical Decision Making Medical Decision Making [facility] Narrative: 58 year old male with pmhx significant for alcohol abuse, hypoxia, CHF who is well known to our emergency department presents to the ED today after being found wandering in the street by EMS. Patient noted to be hypoxic to 85% on arrival, placed on 2 L nasal cannula. BP soft, vitals are otherwise WNL. Pitting edema to bilateral lower extremities. Lung sounds diminished. Differential diagnosis includes anemia, electrolyte abnormality, CHF, ACS, arrhythmia, ETOH intoxication, EtOH withdrawal, polysubstance abuse, pneumonia, viral syndrome, dependent edema Plan for labs, imaging, EKG, re-evaluation. Differential Diagnosis Differential Diagnoses: The differential diagnosis associated with the presentation includes as above. Admission/Observation Consideration of admission/observation: Escalation of care including admission/observation considered Patient admitted to medicine for management of CHF. Consult Healthcare Provider Management of the patient was discussed with: Hospitalist (dr. cardona) Lab Data MDM Lab Attestation statement: I reviewed the patient's lab results. as above. 05/26/25 06:40 05/26/25 06:40 Labs: Lab Results 05/24/25 Range/Units 17:09 WBC 3.5 L (4.8-10.8) X10*3/uL RBC 3.53 L (4.60-5.80) X10*6/uL Hgb 10.9 L (14.0-18.0) g/dl Hct 32.7 L (42.0-52.0) % MCV 92.6 (80.0-98.0) fL MCH 30.9 (27.0-33.0) pg MCHC 33.3 (31.0-36.0) g/dl RDW 17.6 H (11.0-16.0) % Plt Count 39 L (160-400) X10*3/uL MPV 11.8 (9.4-12.4) fL Immature Gran % (Auto) 0.6 H (0.0-0.4) % Neut % (Auto) 62.5 (45-73) % Lymph % (Auto) 25.5 (20-40) % [place] % (Auto) 8.9 (2-11) % Eos % (Auto) 1.4 (0-4) % Baso % (Auto) 1.1 (0-2) % Lymph # (Auto) 0.9 L (1.2-4.9) X10*3/uL [place] # (Auto) 0.3 (0.1-1.2) X10*3/uL Eos # (Auto) 0.1 (0.0-0.4) X10*3/uL Baso # (Auto) 0.0 (0.0-0.2) X10*3/uL Abs Immat Gran (auto) 0.02 (0.00-0.03) X10*3/uL Absolute Neuts (auto) 2.2 (2.0-8.3) x10*3/uL Absolute Nucleated RBC 0.000 (0.0-0.012) X10*3/uL Nucleated RBC % (auto) 0.0 (0.0-0.2) /100WBC Sodium 139 (135-145) mmol/L Potassium 3.7 (3.3-5.1) mmol/L Chloride 110 H (96-108) mmol/L Carbon Dioxide 19 L (22-29) mmol/L Anion Gap 14 (12-20) BUN 11 (9-16) mg/dL Creatinine 0.68 (0.5-1.4) mg/dL Estim Creat Clear Calc 97.9 Estimated GFR > 60 Random Glucose 92 (60-115) mg/dL Calcium 8.4 (8.4-10.2) mg/dL Magnesium 1.9 (1.6-2.6) mg/dL Total Bilirubin 0.9 (0.0-1.0) mg/dL AST 63 H (5-37) U/L ALT 13 (0-40) U/L Alkaline Phosphatase 167 H (39-117) U/L Troponin I High Sens 4.2 D (<3.5-35.0) ng/L B-Natriuretic Peptide 231 H (<100) pg/mL Total Protein 8.1 H (6.5-8.0) g/dL Albumin 3.6 (3.5-5.0) g/dL Urine Color Yellow Urine Appearance Clear Urine pH 6.5 (5.0-9.0) Ur Specific [place] <= 1.005 (1.005-1.025) Urine Protein Negative (Neg-Trace) mg/dL Urine Glucose (UA) Negative (Negative) mg/dL Urine Ketones Negative (Negative) mg/dL Urine Blood Negative (Negative) Urine Nitrite Negative (Negative) Ur Leukocyte Esterase Negative (Negative) Urine Opiates Screen Not Detected (Not Detect) Ur Buprenorphine Scrn Not Detected (Not Detect) ng/mL Ur Oxycodone Screen Not Detected (Not Detect) ng/mL Urine Methadone Screen Not Detected (Not Detect) ng/mL Urine Fentanyl Screen Not Detected (Not Detect) Ur Barbiturates Screen POSITIVE H (Not Detect) Ur Phencyclidine Scrn Not Detected (Not Detect) Ur Amphetamines Screen Not Detected (Not Detect) U Benzodiazepines Scrn Not Detected (Not Detect) Urine Cocaine Screen Not Detected (Not Detect) U Marijuana (THC) Screen Not Detected (Not Detect) Ethyl Alcohol 350 H* mg/dL Influenza Type A (PCR) NEGATIVE (Negative) Influenza Type B (PCR) NEGATIVE (Negative) RSV RNA Qual (PCR) NEGATIVE (Negative) SARS-CoV-2 RNA (RT-PCR) NEGATIVE (Negative) Independent Interpretation I performed an independent interpretation of an: EKG and Plain X-Ray Interpretation: cxr showing pulmonary edema ekg showing NSR, rate of 73 bpm Radiology Impression Discussion of test interpretation with radiology: I have reviewed the radiologist's reading. Radiologist Impression: Procedure(s): XR chest 2V Accession Number(s): [id number] cc: Physician,Unknown ; Johanna Liao~ CLINICAL HISTORY: short of breath 2 view chest x-ray Comparison: CR/SR - XR CHEST 2V - 05/05/25 14:51 EDT Findings: Pulmonary vascular prominence. No effusion or pneumothorax. No focal infiltrate. Heart size is mildly enlarged. No acute fracture. IMPRESSION: Prominent pulmonary vasculature which may indicate vascular congestion. This document has been electronically signed by: Brandt Johnson MD on 05/24/2025 17:20:17 Independent Historian Clinical information obtained from an independent historian. History obtained from or confirmed by: EMS External Record Review External record reviewed: Inpatient record, Office record, Outpatient record, Prior outpatient labs, Prior outpatient radiology, Primary care record and Outside ED record Chronic Conditions Patient?s care impacted by: Other (CHF, etoh abuse) Social Determinants Patient?s care significantly limited by Social Determinants of Health including: Other Social Determinant of Health Medications Administered Discontinued Medications Generic Name Dose Route Start Last Admin Trade Name Freq PRN Reason Stop Dose Admin Acetaminophen 650 mg 05/24/25 17:56 05/26/25 20:34 Acetaminophen 325 Mg Tablet PO 650 mg Q6H PRN Administration Pain, Mild 1-3,fever,headache Folic Acid 1 mg 05/25/25 09:00 05/27/25 08:00 Folic Acid 1 Mg Tablet PO 1 mg DAILY JOSE MANUEL Administration Furosemide 40 mg 05/24/25 17:41 05/24/25 18:32 Furosemide 40 Mg/4 Ml Vial IVPUSH 05/24/25 17:42 40 mg STAT STA Administration Protocol Furosemide 40 mg 05/25/25 09:00 05/27/25 08:00 Furosemide 40 Mg/4 Ml Vial IVPUSH 40 mg DAILY JOSE MANUEL Administration Protocol Thiamine HCl 100 mg/ Sodium 101 mls @ 202 mls/hr 05/24/25 17:57 05/24/25 19:32 Chloride IV 05/24/25 18:26 Infused ONCE STA Infusion Albumin Human 100 mls @ 133.333 mls/hr 05/25/25 00:30 05/25/25 02:41 Kedbumin 25 % IV 05/25/25 02:14 Infused Q1H JOSE MANUEL Infusion Magnesium Sulfate 2 gm in 50 mls @ 25 mls/hr 05/26/25 08:46 05/26/25 12:44 Magnesium Sulfate/H2o IV 05/26/25 10:45 Infused ONCE ONE Infusion Ketorolac Tromethamine 30 mg 05/27/25 08:46 05/27/25 09:09 Ketorolac Tromethamine 30 Mg/Ml Vial IVPUSH 05/27/25 08:47 30 mg ONCE ONE Administration Lactulose 30 gm 05/25/25 09:00 05/27/25 08:00 Lactulose 20 Gm/30 Ml Solution PO 30 gm DAILY JOSE MANUEL Administration Lidocaine 1 patch 05/27/25 08:46 05/27/25 09:09 Lidocaine 4 % Patch Adh..Patch TRANSDERMA 05/27/25 08:47 1 patch ONCE ONE Administration Protocol Melatonin 6 mg 05/24/25 21:00 05/26/25 20:34 Melatonin 3 Mg Tablet PO 6 mg BEDTIME PRN Administration Insomnia Multivitamins/Vitamin C 1 tab 05/25/25 09:00 05/27/25 08:00 Multivitamin Tablet PO 1 tab DAILY JOSE MANUEL Administration Pantoprazole Sodium 40 mg 05/24/25 21:35 05/27/25 06:24 Pantoprazole Sodium 40 Mg/10 Ml Vial IVPUSH 40 mg DAILY@0630 JOSE MANUEL Administration Sodium Chloride 3 ml 05/25/25 00:00 05/27/25 08:02 0.9 % Sodium Chloride Flush 3 Ml Syringe IVFLUSH 3 ml QSHIFT JOSE MANUEL Administration Sucralfate 1 gm 05/25/25 07:30 05/27/25 06:24 Sucralfate 1 Gm Tablet PO 1 gm BIDAC JOSE MANUEL Administration Thiamine HCl 100 mg 05/25/25 09:00 05/27/25 08:00 Thiamine Hcl 100 Mg Tablet PO 100 mg DAILY JOSE MANUEL Administration Critical Care Time Critical Care Time Critical Care Time: Yes Total Critical Care Time: 32 Attestation: Critical care time in the amount of 32 minutes has been provided to the patient in terms of direct patient care, frequent reevaluation, consultation with hospitalist, review and interpretation of medical data and results, and management of potentially life-threatening conditions. This is all outside of any medical procedures. Discharge Plan Discharge Clinical Impression: CHF (congestive heart failure), Acute hypoxic respiratory failure, Alcohol intoxication Patient Disposition: Admitted As Inpatient Interventions: Admission Worksheet (ED) Last Done: 05/24/25 20:06 Discharge Date/Time: 05/24/25 21:12
--- NOTE | 2025-05-24 16:34 | ECG_ITS ---
Test Reason : HYPOXIA Blood Pressure : */* mmHG Vent. Rate : 73 BPM Atrial Rate : 73 BPM P-R Int : 120 ms QRS Dur : 92 ms QT Int : 438 ms P-R-T Axes : 44 54 69 degrees QTcB Int : 482 ms Normal sinus rhythm Prolonged QT Abnormal ECG When compared with ECG of 23-May-2025 15:57, No significant change was found Referred By: Johanna Liao Electronically Signed By: Brayan Negron
[2025-05-24 17:16] LABS: MANUAL DIFF FLAG NO
[2025-05-24 17:17] LABS: Appearance Urine Clear; Glucose Urine UA Negative (Negative); Hematocrit 32.7 % (42.0-52.0); Hemoglobin 10.9 g/dl (14.0-18.0); Imm Gran Abs Auto 0.02 X10*3/uL (0.00-0.03); Imm Gran Pct Auto 0.6 % (0.0-0.4); Lymphocytes Absolute Auto 0.9 X10*3/uL (1.2-4.9); Mean Corpuscular HGB Conc 33.3 g/dl (31.0-36.0); Mean Corpuscular Hemoglobin 30.9 pg (27.0-33.0); Mean Corpuscular Volume 92.6 fL (80.0-98.0); NRBC Abs Auto 0.000 X10*3/uL (0.0-0.012); NRBC Pct Auto 0.0 /100WBC (0.0-0.2); PH 6.5 (5.0-9.0); Platelet Count 39 X10*3/uL (160-400); Red Blood Count 3.53 X10*6/uL (4.60-5.80); Specific Gravity - Urine <= 1.005 (1.005-1.025); White Blood Count 3.5 X10*3/uL (4.8-10.8)
[2025-05-24 17:29] LABS: Cannabinoid Screen Urine Not Detected (Not Detect)
[2025-05-24 17:31] LABS: Alanine Aminotransferase 13 U/L (0-40); Albumin Level 3.6 g/dL (3.5-5.0); Alkaline Phosphatase 167 U/L (39-117); Anion Gap 14 (12-20); Aspartate Amino Transferase 63 U/L (5-37); Blood Urea Nitrogen 11 mg/dL (9-16); Calcium 8.4 mg/dL (8.4-10.2); Carbon Dioxide 19 mmol/L (22-29); Chloride 110 mmol/L (96-108); Creatinine Clr Calc Pharmacy 97.9; Estimated Glomerular Filt Rate > 60; Magnesium 1.9 mg/dL (1.6-2.6); Potassium 3.7 mmol/L (3.3-5.1); Sodium 139 mmol/L (135-145); Total Protein 8.1 g/dL (6.5-8.0)
[2025-05-24 17:37] LABS: B Type Natriuretic Peptide 231 pg/mL (<100)
[2025-05-24 17:38] LABS: Troponin-I High Sensitivity 4.2 ng/L (<3.5-35.0)
[2025-05-24 17:53] LABS: Resp Syncy Virus RNA Qual PCR NEGATIVE (Negative); SARS COV2 PCR INHOUSE NEGATIVE (Negative)
[2025-05-24] MEDS: Thiamine HCL 100 MG in 0.9 % Sodium Chloride 100 ML 202 MG IV (18:32)
[2025-05-24] MEDS: Furosemide 40 MG/4 ML VIAL IVPUSH (18:32)
--- NOTE | 2025-05-24 19:04 | PC.NURSE ---
patient awake/alert to person place, ekg performed, telemetry monitor applied nsr/sb on monitor, iv inserted, labs previously drawn, cxr performed. Pts O2 sat was mid 80s on room air- 2L NC applied which brought it back up to low 90s, rr equal/non labored- pt speaking in full sentences, BLE 3+ pitting edema, call harris within reach, plan of care ongoing.
--- NOTE | 2025-05-24 21:02 | PM.IMHP ---
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 He was found to have low oxygen saturation was placed on supplemental oxygen by EMS. It was quite challenging to obtain a reliable HPI from the patient as he is quite intoxicated. He said that he is homeless as not taking any medication. He drinks a pt of vodka and beers daily. He denies shortness or breath or chest pain. Per chart review, ETOH levels performed over the last 3 years has been basically elevated. He is ETOH level today is 350. Blood workup today is basically at baseline: Pancytopenia. No significant electrolyte imbalances. CO2 is 19, also at baseline. AST is elevated at 63. ALT is 13, alk-phos is 165 and total bilirubin is 0.9. BNP is 231 (yesterday it was 165). Troponin is 4.2. CXR showed prominent pulmonary vasculature which may indicate vascular congestion. CXR yesterday showed new cardiomegaly and clear lungs. Venous ultrasound performed due showed DVT. ECG showed normal sinus rhythm, 70 3 beats per minute without ischemic changes. ED tx: Furosemide 40 mg IV Review of Systems Review of Systems: All 12 systems were reviewed and normal except as noted in HPI. [facility] History CHF (congestive heart failure) Alcohol use disorder Alcohol abuse Acute hypoxemic respiratory failure Anemia Pneumonia Alcohol withdrawal syndrome Pancytopenia Alcohol abuse Thrombocytopenia Esophageal varices Acute on chronic anemia Alcoholic liver disease Aspiration pneumonia Thrombocytopenia Malnutrition CHF (congestive heart failure) Anemia Hypomagnesemia Cirrhosis Thrombocytopenia Acute on chronic anemia CHF (congestive heart failure) Anemia Alcohol abuse Surgical History No history of previous surgery Social History Household Members: None Household Members Other:: homeless Housing: Homeless Housing Other:: Homeless penitentiary Do you presently have visiting nurse or other home services: No Unable to assess alcohol history related to: Refusing to respond Alcohol intake: current Alcohol intake frequency: 3 or more drinks per day Alcohol type: beer and hard liquor Comment: 1 assist to bathroom Patient Tobacco Use Status: Former Tobacco user Tobacco use type: Cigarette Smoked in Last 30 Days: No Second Hand Smoke Exposure: No Use of substances other than those prescribed or required for medical reasons: No Advance Directives: Yes Advance Directives on File: Yes Advance Directives Date on File: 07/13/23 Do you have a plan to hurt others: No Plan Nutrition Risks: No Nutritional Risk service: No Meds Allergies Allergy/AdvReac Type Severity Reaction Status Date / Time No Known Allergies (No Known Allergy Verified 05/24/25 15:26 Allergies*) Active Medications: Current Medications Acetaminophen (Acetaminophen 325 Mg Tablet) 650 mg PO Q6H PRN PRN Reason: Pain, Mild 1-3,fever,headache Calcium Carbonate (Calcium Carbonate 750 Mg Tab.Chew) 750 mg PO Q4H PRN PRN Reason: Heartburn Enoxaparin Sodium (Enoxaparin Sodium 40 Mg/0.4 Ml Syringe) 40 mg SUBCUT Q24H JOSE MANUEL Folic Acid (Folic Acid 1 Mg Tablet) 1 mg PO DAILY JOSE MANUEL Magnesium Hydroxide (Milk Of Magnesia 30 Ml Oral.Susp) 30 ml PO DAILY PRN PRN Reason: Constipation Melatonin (Melatonin 3 Mg Tablet) 6 mg PO BEDTIME PRN PRN Reason: Insomnia Multivitamins/Vitamin C (Multivitamin Tablet) 1 tab PO DAILY JOSE MANUEL Sodium Chloride (0.9 % Sodium Chloride Flush 3 Ml Syringe) 3 ml IVFLUSH QSHIFT JOSE MANUEL Thiamine HCl (Thiamine Hcl 100 Mg Tablet) 100 mg PO DAILY JOSE MANUEL Home Medications ?Medication ?Instructions ?Recorded ?Confirmed ?Last Taken ?Type lactulose 10 gram/15 mL oral 30 ml PO TID 02/01/25 03/03/25 Unknown History solution omeprazole 40 mg capsule,delayed 40 mg PO DAILY@0630 02/01/25 03/03/25 Unknown History release Physical Exam Vital Signs and Narrative: Vital Signs: Last Vital Signs Temp 97.5 F 05/24/25 18:01 Pulse 73 05/24/25 18:01 Resp 17 05/24/25 18:01 BP 104/51 L 05/24/25 18:32 Pulse Ox 93 05/24/25 18:01 O2 Del Method Nasal Cannula 05/24/25 18:01 O2 Flow Rate 2 05/24/25 18:01 BMI result Body Mass Index 20.3 Constitutional -awake, very intoxicated HEENT - PER, EOMI Heart - RRR, No murmurs Lungs - Normal lung expansion, Normal respiratory effort, No respiratory distress, CTA bilaterally. No tachypnea. Bibasilar crackles. Abdomen - NT / ND; +BS; No rebound or guarding Extremities - ankle and pedal edema Musculoskeletal - Normal inspection, normal ROM Skin - Warm/Dry Neurological - Alert & oriented x3. Intoxicated --> Slurred speech. No facial droop. Moving all extremities spontaneously. Psychological - intoxicated Results Labs 05/24/25 17:09 05/24/25 17:09 Labs: Laboratory Results - last 24 hr 05/24/25 17:09 MCV 92.6 MCH 30.9 MCHC 33.3 RDW 17.6 H Plt Count 39 L MPV 11.8 Immature Gran % (Auto) 0.6 H Neut % (Auto) 62.5 Lymph % (Auto) 25.5 [place] % (Auto) 8.9 Eos % (Auto) 1.4 Baso % (Auto) 1.1 Lymph # (Auto) 0.9 L [place] # (Auto) 0.3 Eos # (Auto) 0.1 Baso # (Auto) 0.0 Abs Immat Gran (auto) 0.02 Absolute Neuts (auto) 2.2 Absolute Nucleated RBC 0.000 Nucleated RBC % (auto) 0.0 Anion Gap 14 Estim Creat Clear Calc 97.9 Estimated GFR > 60 Random Glucose 92 Calcium 8.4 Magnesium 1.9 Total Bilirubin 0.9 AST 63 H ALT 13 Alkaline Phosphatase 167 H B-Natriuretic Peptide 231 H Total Protein 8.1 H Albumin 3.6 Urine Color Yellow Urine Appearance Clear Urine pH 6.5 Ur Specific [place] <= 1.005 Urine Protein Negative Urine Glucose (UA) Negative Urine Ketones Negative Urine Blood Negative Urine Nitrite Negative Ur Leukocyte Esterase Negative Urine Opiates Screen Not Detected Ur Buprenorphine Scrn Not Detected Ur Oxycodone Screen Not Detected Urine Methadone Screen Not Detected Urine Fentanyl Screen Not Detected Ur Barbiturates Screen POSITIVE H Ur Phencyclidine Scrn Not Detected Ur Amphetamines Screen Not Detected U Benzodiazepines Scrn Not Detected Urine Cocaine Screen Not Detected U Marijuana (THC) Screen Not Detected Ethyl Alcohol 350 H* Influenza Type A (PCR) NEGATIVE Influenza Type B (PCR) NEGATIVE RSV RNA Qual (PCR) NEGATIVE SARS-CoV-2 RNA (RT-PCR) NEGATIVE Assessment and Plan (1) Acute hypoxic respiratory failure: Status: Acute (2) Acute on chronic diastolic CHF (congestive heart failure): Status: Acute Plan Charbel Delgado is a 58 y/o man admitted with: Acute hypoxic respiratory failure secondary to acute on chronic diastolic CHF/HFpEF. (TTE 11/05) showed normal LV EF 60-65% w/ impaired relaxation filling pattern. Admit to hospitalist service. Telemetry. Continue Lasix. Continue supplemental O2 to keep O2 sats > 90%. Strict intake and output. Low-salt diet. Recheck TTE. Alcohol intoxication. Aspiration and fall precautions. CIWA. Thiamine, folic acid and multivitamins. Abstain from alcohol consumption. Social work. Consider phenobarbital if needed (has refused this in the past). Pancytopenia secondary to chronic liver disease. At baseline. Continue to monitor. Elevated AST and alk-phos, secondary to alcohol abuse. Continue to monitor. 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 No ascites. Per GI notes - Last EGD 01/23/24 with varices but no red stroud, portal hypertensive gastropathy and banding performed. Restart Lactulose. No diuretics for now due to soft BP. To consider low-dose carvedilol if BP allows. GERD. PPI and sucralfate. Homeless. Social work consult. DVT prophylaxis, SCDs Code status: Full Patient will need hospitalization for at least 2 midnights for IV diuresis and supplemental oxygen. Quality Stroke Does the patient have a stroke diagnosis?: No VTE Prior VTE?: No VTE Risk Level:: Medical - moderate - high VTE Device Contraindication: N/A - Device Ordered VTE Drug Contraindication: N/A - Med Ordered
[2025-05-24 21:28] LABS: Glucose, Whole Blood 97 mg/dL (60-115)
[2025-05-24] MEDS: 0.9 % Sodium Chloride Flush 3 ML SYRINGE IVFLUSH (22:14)
[2025-05-25] VITALS (7 sets, daily range): BP systolic 100–123; BP diastolic 55–60; PULSE 70–87; RESP 16–18; TEMP 37–37.9; O2SAT 92–95
[2025-05-25] MEDS: Albumin Human 25 % 100 ML 133.33 ML IV ×2 (00:56→01:37)
[2025-05-25 06:54] LABS: Alanine Aminotransferase 11 U/L (0-40); Albumin Level 3.6 g/dL (3.5-5.0); Alkaline Phosphatase 150 U/L (39-117); Anion Gap 13 (12-20); Aspartate Amino Transferase 53 U/L (5-37); Blood Urea Nitrogen 11 mg/dL (9-16); Calcium 8.2 mg/dL (8.4-10.2); Carbon Dioxide 22 mmol/L (22-29); Chloride 111 mmol/L (96-108); Creatinine Clr Calc Pharmacy 85.0; Estimated Glomerular Filt Rate > 60; Magnesium 1.6 mg/dL (1.6-2.6); Potassium 3.6 mmol/L (3.3-5.1); Sodium 142 mmol/L (135-145); Total Protein 7.3 g/dL (6.5-8.0)
[2025-05-25 06:59] LABS: Hematocrit 30.1 % (42.0-52.0); Hemoglobin 10.1 g/dl (14.0-18.0); Imm Gran Abs Auto 0.00 X10*3/uL (0.00-0.03); Imm Gran Pct Auto 0.0 % (0.0-0.4); Lymphocytes Absolute Auto 0.6 X10*3/uL (1.2-4.9); Mean Corpuscular HGB Conc 33.6 g/dl (31.0-36.0); Mean Corpuscular Hemoglobin 31.0 pg (27.0-33.0); Mean Corpuscular Volume 92.3 fL (80.0-98.0); NRBC Abs Auto 0.000 X10*3/uL (0.0-0.012); NRBC Pct Auto 0.0 /100WBC (0.0-0.2); Red Blood Count 3.26 X10*6/uL (4.60-5.80)
[2025-05-25 07:00] LABS: Platelet Count 36 X10*3/uL (160-400); White Blood Count 1.9 X10*3/uL (4.8-10.8)
--- NOTE | 2025-05-25 08:02 | MHC.CM.PN ---
Patient is homeless and living on the streets; he frequents a halfway on [facility] in [place] that serves lunch daily and curfew is 8PM. Patient often prefers to walk but may need assist with transport at time of dc. Patient has a HCP; Agent is Guillermo Delgado. Patient has no PCP; PCP brochure has been provided several times. Returning to the community VS Recovery Team intervention r/t ETOH is the tentative plan and CM has initiated and will follow for dc planning.
[2025-05-25] MEDS: Furosemide 40 MG/4 ML VIAL IVPUSH (08:31)
[2025-05-25] MEDS: 0.9 % Sodium Chloride Flush 3 ML SYRINGE IVFLUSH ×3 (08:38→20:20)
--- NOTE | 2025-05-25 09:27 | PHA.MEDREC ---
Pharmacy Consult ? Medication Reconciliation Pharmacy has completed the medication reconciliation. Spoke with patient to confirm. He is currently not taking any prescriptions at this time. He reports the prescriptions he was discharged with previously ([facility]) he had lost them/were taken. He has claims from [facility] pharmacy but says he has not picked up any medications from that pharmacy.
--- NOTE | 2025-05-25 13:54 | HO.PM.IMPN ---
Subjective Subjective Date of Service: 05/25/25 Interval History: Seen and examined this morning Follow-up for CHF Reports ongoing leg edema. Denies shortness of breath Appears mildly tremulous but says he is not withdrawing Review of Systems Review of Systems: Yes all other systems are reviewed and are negative Constitutional Constitutional: Denies chills and Denies fever(s) Physical Exam Vital Signs: Vital Signs: Last Vital Signs Temp 98.6 F 05/25/25 11:47 Pulse 78 05/25/25 11:47 Resp 16 05/25/25 11:47 BP 112/55 L 05/25/25 11:47 Pulse Ox 92 05/25/25 11:47 O2 Del Method Room Air 05/25/25 11:47 O2 Flow Rate 1 05/25/25 07:24 BMI result Body Mass Index 19.7 Const: General: cooperative, comfortable, no acute distress, alert and awake Nutritional Appearance: average body habitus Orientation/consciousness: patient oriented x3 Resp: Effort & Inspection: normal respiratory effort, able to speak in complete sentences, no respiratory distress and no use of accessory muscles Auscultation: no rales Cardio: Rate: regular rate GI: Palpation (GI): Soft to palpation Neuro: Other: grossly nonfocal mildly tremulous General: patient oriented x3 and moves all extremities Extrem: Other: b/l pedal edema Objective Data Active Medications Acetaminophen (Acetaminophen 325 Mg Tablet) 650 mg PO Q6H PRN PRN Reason: Pain, Mild 1-3,fever,headache Last Admin: 05/24/25 22:14 Dose: 650 mg Documented By: MARTHA Calcium Carbonate (Calcium Carbonate 750 Mg Tab.Chew) 750 mg PO Q4H PRN PRN Reason: Heartburn Folic Acid (Folic Acid 1 Mg Tablet) 1 mg PO DAILY [facility] Last Admin: 05/25/25 08:30 Dose: 1 mg Documented By: BETHANY Furosemide (Furosemide 40 Mg/4 Ml Vial) 40 mg IVPUSH DAILY [facility]; Protocol Last Admin: 05/25/25 08:31 Dose: 40 mg Documented By: BETHANY Lactulose (Lactulose 20 Gm/30 Ml Solution) 30 gm PO DAILY [facility] Last Admin: 05/25/25 08:31 Dose: 30 gm Documented By: BETHANY Magnesium Hydroxide (Milk Of Magnesia 30 Ml Oral.Susp) 30 ml PO DAILY PRN PRN Reason: Constipation Melatonin (Melatonin 3 Mg Tablet) 6 mg PO BEDTIME PRN PRN Reason: Insomnia Multivitamins/Vitamin C (Multivitamin Tablet) 1 tab PO DAILY [facility] Last Admin: 05/25/25 08:30 Dose: 1 tab Documented By: BETHANY Pantoprazole Sodium (Pantoprazole Sodium 40 Mg/10 Ml Vial) 40 mg IVPUSH DAILY@0630 [facility] Last Admin: 05/25/25 05:34 Dose: 40 mg Documented By: SALBADOR Sodium Chloride (0.9 % Sodium Chloride Flush 3 Ml Syringe) 3 ml IVFLUSH QSHIFT [facility] Last Admin: 05/25/25 08:38 Dose: 3 ml Documented By: BETHANY Sucralfate (Sucralfate 1 Gm Tablet) 1 gm PO BIDAC [facility] Last Admin: 05/25/25 08:30 Dose: 1 gm Documented By: BETHANY Thiamine HCl (Thiamine Hcl 100 Mg Tablet) 100 mg PO DAILY [facility] Last Admin: 05/25/25 08:30 Dose: 100 mg Documented By: BETHANY Labs 05/25/25 06:23 05/25/25 06:23 Labs: Laboratory Results - last 24 hr 05/24/25 05/24/25 05/25/25 17:09 21:14 06:23 MCV 92.6 92.3 MCH 30.9 31.0 MCHC 33.3 33.6 RDW 17.6 H 17.4 H Plt Count 39 L 36 L MPV 11.8 11.3 Immature Gran % (Auto) 0.6 H 0.0 Neut % (Auto) 62.5 53.6 Lymph % (Auto) 25.5 31.6 [place] % (Auto) 8.9 10.5 Eos % (Auto) 1.4 3.2 Baso % (Auto) 1.1 1.1 Lymph # (Auto) 0.9 L 0.6 L [place] # (Auto) 0.3 0.2 Eos # (Auto) 0.1 0.1 Baso # (Auto) 0.0 0.0 Abs Immat Gran (auto) 0.02 0.00 Absolute Neuts (auto) 2.2 1.0 L Absolute Nucleated RBC 0.000 0.000 Nucleated RBC % (auto) 0.0 0.0 Anion Gap 14 13 Estim Creat Clear Calc 97.9 85.0 Estimated GFR > 60 > 60 POC Glucose 97 Random Glucose 92 81 Calcium 8.4 8.2 L Magnesium 1.9 1.6 Total Bilirubin 0.9 0.7 AST 63 H 53 H ALT 13 11 Alkaline Phosphatase 167 H 150 H B-Natriuretic Peptide 231 H Total Protein 8.1 H 7.3 Albumin 3.6 3.6 Urine Color Yellow Urine Appearance Clear Urine pH 6.5 Ur Specific [place] <= 1.005 Urine Protein Negative Urine Glucose (UA) Negative Urine Ketones Negative Urine Blood Negative Urine Nitrite Negative Ur Leukocyte Esterase Negative Urine Opiates Screen Not Detected Ur Buprenorphine Scrn Not Detected Ur Oxycodone Screen Not Detected Urine Methadone Screen Not Detected Urine Fentanyl Screen Not Detected Ur Barbiturates Screen POSITIVE H Ur Phencyclidine Scrn Not Detected Ur Amphetamines Screen Not Detected U Benzodiazepines Scrn Not Detected Urine Cocaine Screen Not Detected U Marijuana (THC) Screen Not Detected Ethyl Alcohol 350 H* Influenza Type A (PCR) NEGATIVE Influenza Type B (PCR) NEGATIVE RSV RNA Qual (PCR) NEGATIVE SARS-CoV-2 RNA (RT-PCR) NEGATIVE Assessment and Plan (1) Alcohol intoxication: Status: Acute (2) Acute on chronic diastolic CHF (congestive heart failure): Status: Acute Plan Charbel Delgado is a 58 y/o male with history of alcoholic liver cirrhosis, pancytopenia, alcohol dependence who presents to the emergency department with Acute hypoxic respiratory failure secondary to acute on chronic HFpEF. (TTE 11/05) showed normal LV EF 60-65% w/ impaired relaxation filling pattern Continue IV Lasix -700 thus far, follow Is&Os Continue supplemental O2 to keep O2 sats > 90% Low-salt diet Recheck echo Alcohol intoxication/alcohol use disorder Aspiration and fall precautions follow CIWA has not required medication in the past and declines phenobarbitol Thiamine, folic acid and multivitamins has been sectioned previously in february addiction medicine consult Pancytopenia due to splenomegaly in the setting of alcoholic cirrhosis and alcoholism At baseline. Continue to monitor. Elevated AST and alk-phos secondary to alcohol abuse. Continue to monitor. 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 No ascites. Per GI notes - Last EGD 01/23/24 with varices but no red stroud, portal hypertensive gastropathy and banding performed Restart Lactulose GERD. PPI and sucralfate. not taking any meds at baseline DVT prophylaxis, SCDs Code status: Full Requires ongoing inpatient stay for IV diuresis and supplemental oxygen. Quality Stroke Does the patient have a stroke diagnosis?: No VTE Prior VTE?: No VTE Risk Level:: Medical - moderate - high VTE Device Contraindication: N/A - Device Ordered VTE Drug Contraindication: N/A - Med Ordered
[2025-05-26 03:14] VITALS: BP 100/53; PULSE 63; RESP 18; TEMP 37.7; O2SAT 94
--- NOTE | 2025-05-26 07:00 | CA_ITS ---
Transthoracic Echocardiogram Patient (Last, First, Middle): Charbel Delgado, Gender: Male Date of : 1970 Age: 55 Procedure Date: 05/26/2025 Procedure Type: Transthoracic [place] [facility] [place]: 167.64 cm Weight: 55.34 kg BSA: 1.62 m2 Heart Rate: 70 bpm BP: 100 / 53 mmHg Caster Operator: CRESCENCIO Referring MD: Lico Mayo MD Symptoms: Pulmonary edema Study Quality: Adequate ECG Rhythm: Sinus Conclusions: - The left ventricular systolic function is normal. The calculated ejection fraction is 64% by biplane method. - No obvious valvular pathology seen on this study. Findings Left Ventricle Normal left ventricular cavity size. There is normal left ventricular wall thickness. The left ventricular systolic function is normal. The calculated ejection fraction is 64% by biplane method. There is no evidence of regional wall motion abnormalities. Diastolic function is normal for age. Right Ventricle Mildly increased right ventricular cavity size. There is normal right ventricular systolic function. Atria The left atrium is mildly dilated. The right atrium is normal in size. Aortic Valve There is a normal trileaflet aortic valve. There is mild calcification of the aortic valve. There is no aortic valve stenosis. There is no aortic valve regurgitation. Mitral Valve There is mild mitral annular calcification. There is no mitral valve regurgitation. There is no mitral valve stenosis. Mitral chordal calcification Pulmonic Valve The pulmonic valve is likely normal. Tricuspid Valve There is mild tricuspid valve regurgitation. There is no evidence of pulmonary hypertension. Great Vessels The asc aorta and aortic arch are normal in size. Venous The inferior vena cava was not well visualized. The inferior vena cava is normal in size. Pericardium/Pleural There is no evidence of pericardial effusion. Prior Study Comparison Changes noted compared to prior study dated: 11/11/2024. Previously described interatrial shunting not clearly seen. Recommendations, Care & Conclusions No obvious valvular pathology seen on this study. Measurements 2D Linear Measurements IVSd: 0.80 0.6-0.9/0.6-1.0 cm LVIDd: 5.42 3.9-5.3/4.2-5.9 cm LVIDd Index: 3.35 2.4-3.2/2.2-3.1 cm/m2 LVIDs: 3.62 2.0-3.6 cm LVPWd: 0.74 0.7-1.1 cm LA Diam: 3.00 2.7-3.8/3.0-4.0 cm LAIDs Index: 1.85 1.5-2.3 cm/m2 LV Mass: 184.75 67-162/88-224 g LV Mass Index: 114.04 43-95/49-115 g/m2 LVOT Diam: 1.90 3.0+(-)1.3 cm 2D Systolic Function EF 4C: 65.30 >55% EF 2C: 61.20 >55% EF BiP: 63.80 >55% Mitral Valve MV Pk E: 0.99 MV PK A: 0.84 MV Decel Time: 232.00 E/A: 1.20 E'Lateral: 11.60 E'Medial: 7.07 E/E' Med: 14.10 E/E' Lat: 8.60 PHT: 68.00 MVA PHT: 3.24 Decel [place]: 4.28 Aortic Valve AoV Pk [place]: 1.52 AoV Mn [place]: 1.09 AoV VTI: 0.32 AoV Pk Grad: 9.00 Aov Mn Grad: 6.00 DARION Cont.VTI: 2.53 LVOT LVOT Pk [place]: 1.42 LVOT Mn [place]: 0.92 LVOT VTI: 0.28 LVOT Pk Grad: 8.00 LVOT Mn Grad: 4.00 LVOT Diam: 1.90 LVOT Area: 2.84 Diastolic Function MV Pk E: 0.99 MV Pk A: 0.84 E/A: 1.20 E'Medial: 7.07 E/E' Med: 14.10 E' Laterial: 11.60 E/E' Lat: 8.60 Right Ventricle TAPSE (mm): 23.00 TVS' [place]: 11.60 Tricuspid Valve TR Pk [place]: 1.91 TR Pk Grad: 15.00 Great Vessels Aorta Sinus of Valsalva: 3.30 2.0-3.5 cm Ao Asc: 2.90 2.1-3.4 cm Ao Arch: 2.60 Pulmonary Valve PV Pk [place]: 1.15 Peak PV Grad: 5.00 Updated in Other Vendor System with Status of Final Florentin Frank MD electronically signed on 05/26/2025 4:03:08 PM with status of Final
[2025-05-26 07:18] VITALS: BP 109/53; PULSE 67; RESP 20; TEMP 36.8; O2SAT 96
[2025-05-26 07:36] LABS: Hematocrit 33.0 % (42.0-52.0); Hemoglobin 10.9 g/dl (14.0-18.0); Mean Corpuscular HGB Conc 33.0 g/dl (31.0-36.0); Mean Corpuscular Hemoglobin 31.1 pg (27.0-33.0); Mean Corpuscular Volume 94.0 fL (80.0-98.0); NRBC Abs Auto 0.000 X10*3/uL (0.0-0.012); NRBC Pct Auto 0.0 /100WBC (0.0-0.2); Platelet Count 34 X10*3/uL (160-400); Red Blood Count 3.51 X10*6/uL (4.60-5.80); White Blood Count 2.4 X10*3/uL (4.8-10.8)
[2025-05-26 07:48] LABS: Alanine Aminotransferase 9 U/L (0-40); Albumin Level 3.5 g/dL (3.5-5.0); Alkaline Phosphatase 142 U/L (39-117); Anion Gap 13 (12-20); Aspartate Amino Transferase 50 U/L (5-37); Blood Urea Nitrogen 15 mg/dL (9-16); Calcium 8.6 mg/dL (8.4-10.2); Carbon Dioxide 24 mmol/L (22-29); Chloride 107 mmol/L (96-108); Creatinine Clr Calc Pharmacy 81.8; Estimated Glomerular Filt Rate > 60; Magnesium 1.5 mg/dL (1.6-2.6); Potassium 3.4 mmol/L (3.3-5.1); Sodium 141 mmol/L (135-145); Total Protein 7.5 g/dL (6.5-8.0)
[2025-05-26] MEDS: Furosemide 40 MG/4 ML VIAL IVPUSH (07:57)
[2025-05-26] MEDS: 0.9 % Sodium Chloride Flush 3 ML SYRINGE IVFLUSH ×3 (07:58→20:32)
[2025-05-26] MEDS: Magnesium Sulfate/H2O 2 GM/50 ML PIGGYBACK IV (10:37)
[2025-05-26 11:20] VITALS: BP 104/56; PULSE 78; RESP 18; TEMP 37.3; O2SAT 97
--- NOTE | 2025-05-26 12:40 | P.PNIM_ITS ---
Subjective Subjective Date of Service: 05/26/25 Interval History: Seen and examined this morning Follow-up for CHF Reports ongoing leg edema. Denies shortness of breath Appears mildly tremulous but says he is not withdrawing Review of Systems Review of Systems: Yes all other systems are reviewed and are negative Constitutional Constitutional: Denies chills and Denies fever(s) Physical Exam 2 Vital Signs: Vital Signs: Last Vital Signs Temp 99.1 F 05/26/25 11:20 Pulse 78 05/26/25 11:20 Resp 18 05/26/25 11:20 BP 104/56 L 05/26/25 11:20 Pulse Ox 97 05/26/25 11:20 O2 Del Method Nasal Cannula 05/26/25 11:20 O2 Flow Rate 2 05/26/25 11:20 BMI result Body Mass Index 19.7 Appearing in no acute distress lung sounds are clear to auscultation heart regular rate rhythm, clear S1, S2 positive bowel sounds, abdomen is soft, nontender neuro patient is alert x3, no focal deficits Objective Data Active Medications Acetaminophen (Acetaminophen 325 Mg Tablet) 650 mg PO Q6H PRN PRN Reason: Pain, Mild 1-3,fever,headache Last Admin: 05/26/25 10:41 Dose: 650 mg Documented By: MANUELA Calcium Carbonate (Calcium Carbonate 750 Mg Tab.Chew) 750 mg PO Q4H PRN PRN Reason: Heartburn Folic Acid (Folic Acid 1 Mg Tablet) 1 mg PO DAILY [facility] Last Admin: 05/26/25 07:58 Dose: 1 mg Documented By: MANUELA Furosemide (Furosemide 40 Mg/4 Ml Vial) 40 mg IVPUSH DAILY [facility]; Protocol Last Admin: 05/26/25 07:57 Dose: 40 mg Documented By: MANUELA Lactulose (Lactulose 20 Gm/30 Ml Solution) 30 gm PO DAILY [facility] Last Admin: 05/26/25 07:58 Dose: 30 gm Documented By: MANUELA Magnesium Hydroxide (Milk Of Magnesia 30 Ml Oral.Susp) 30 ml PO DAILY PRN PRN Reason: Constipation Melatonin (Melatonin 3 Mg Tablet) 6 mg PO BEDTIME PRN PRN Reason: Insomnia Last Admin: 05/25/25 20:21 Dose: 6 mg Documented By: PEPE Multivitamins/Vitamin C (Multivitamin Tablet) 1 tab PO DAILY [facility] Last Admin: 05/26/25 07:58 Dose: 1 tab Documented By: MANUELA Pantoprazole Sodium (Pantoprazole Sodium 40 Mg/10 Ml Vial) 40 mg IVPUSH DAILY@0630 [facility] Last Admin: 05/26/25 06:06 Dose: 40 mg Documented By: PEPE Sodium Chloride (0.9 % Sodium Chloride Flush 3 Ml Syringe) 3 ml IVFLUSH QSHIFT [facility] Last Admin: 05/26/25 07:58 Dose: 3 ml Documented By: MANUELA Sucralfate (Sucralfate 1 Gm Tablet) 1 gm PO BIDAC [facility] Last Admin: 05/26/25 07:58 Dose: 1 gm Documented By: MANUELA Thiamine HCl (Thiamine Hcl 100 Mg Tablet) 100 mg PO DAILY [facility] Last Admin: 05/26/25 07:58 Dose: 100 mg Documented By: MANUELA Labs 05/26/25 06:40 05/26/25 06:40 Labs: Laboratory Results - last 24 hr 05/26/25 06:40 MCV 94.0 MCH 31.1 MCHC 33.0 RDW 17.3 H Plt Count 34 L MPV TNP Absolute Nucleated RBC 0.000 Nucleated RBC % (auto) 0.0 Anion Gap 13 Estim Creat Clear Calc 81.8 Estimated GFR > 60 Random Glucose 89 Calcium 8.6 Magnesium 1.5 L Total Bilirubin 1.7 H Direct Bilirubin 0.7 H AST 50 H ALT 9 Alkaline Phosphatase 142 H Total Protein 7.5 Albumin 3.5 Assessment and Plan (1) Alcohol intoxication: Status: Acute (2) Acute on chronic diastolic CHF (congestive heart failure): Status: Acute Plan 58 y/o male with history of alcoholic liver cirrhosis, pancytopenia, alcohol dependence who presents to the emergency department with Hypomagnesemia Repleted with IV Acute hypoxic respiratory failure secondary to acute on chronic HFpEF. (TTE 11/05) showed normal LV EF 60-65% w/ impaired relaxation filling pattern Continue IV Lasix Continue supplemental O2 to keep O2 sats > 90% Low-salt diet Recheck echo Alcohol intoxication/alcohol use disorder Aspiration and fall precautions follow CIWA has not required medication in the past and declines phenobarbitol Thiamine, folic acid and multivitamins has been sectioned previously in february addiction medicine consult Pancytopenia due to splenomegaly in the setting of alcoholic cirrhosis and alcoholism At baseline. Continue to monitor. Elevated AST and alk-phos secondary to alcohol abuse. Continue to monitor. 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 No ascites. Per GI notes - Last EGD 01/23/24 with varices but no red stroud, portal hypertensive gastropathy and banding performed Lactulose GERD. PPI and sucralfate. not taking any meds at baseline DVT prophylaxis, SCDs Code status: Full Quality Stroke Does the patient have a stroke diagnosis?: No VTE Prior VTE?: No VTE Risk Level:: Medical - moderate - high VTE Device Contraindication: N/A - Device Ordered VTE Drug Contraindication: N/A - Med Ordered
--- NOTE | 2025-05-26 14:00 | MHC.CM.PN ---
EMR REVIEWED, PT W/CHF, CONT'S TO C/O SOB,NO PLAN FOR DC AT THIS TIME, CM WILL CONT TO FOLLOW DC NEEDS.
[2025-05-26 15:23] VITALS: BP 99/53; PULSE 78; RESP 18; TEMP 37.3; O2SAT 94
[2025-05-26 19:08] VITALS: BP 90/42; PULSE 84; RESP 18; TEMP 37.9; O2SAT 92
[2025-05-26 23:32] VITALS: BP 96/50; PULSE 76; RESP 18; TEMP 37.6; O2SAT 92
[2025-05-27 03:41] VITALS: BP 104/51; PULSE 73; RESP 18; TEMP 37.4; O2SAT 91
[2025-05-27 07:34] LABS: Alanine Aminotransferase 8 U/L (0-40); Albumin Level 3.4 g/dL (3.5-5.0); Alkaline Phosphatase 154 U/L (39-117); Aspartate Amino Transferase 42 U/L (5-37); Magnesium 1.8 mg/dL (1.6-2.6); Total Protein 7.1 g/dL (6.5-8.0)
[2025-05-27 07:37] LABS: B Type Natriuretic Peptide 31 pg/mL (<100)
[2025-05-27 07:52] VITALS: BP 97/55; PULSE 70; RESP 20; TEMP 37.6; O2SAT 93
[2025-05-27] MEDS: Furosemide 40 MG/4 ML VIAL IVPUSH (08:00)
[2025-05-27] MEDS: 0.9 % Sodium Chloride Flush 3 ML SYRINGE IVFLUSH (08:02)
[2025-05-27] MEDS: Lidocaine 4 % Patch ADH..PATCH 1 PATCH TRANSDERMA (09:09)
--- NOTE | 2025-05-27 10:43 | P.DS_ITS ---
DS: Providers Provider Date of Service: 05/27/25 Date of admission: 05/24/25 18:03 Date of discharge: 05/27/25 Primary care physician: Unknown Physician Consults: 05/25/25 13:58 Addiction Medicine Provider Routine Consulting Provider: Addiction Covering Reason for consultation: etoh dependence Has provider been notified: No 05/26/25 10:46 Inpt - Recovery Team Routine Comment: Reason for consultation: LUCAS eval DS: Diagnosis Discharge Diagnosis (1) Alcohol intoxication: Status: Acute (2) Acute on chronic diastolic CHF (congestive heart failure): Status: Acute DS: Summary Hospital Course Hospital Course: History and physical as per admitting provider. Charbel Delgado is a 58 y/o man with past medical history significant for alcohol abuse, multiple hospitalizations (he has been hospitalized > over 50 times over the last 3 years) and end-stage liver cirrhosis secondary to alcohol with chronic thrombocytopenia and edema to the lower extremities he was brought to the emergency department by EMS after he was found walking down middle [place] complaining of leg pain. He was found to have low oxygen saturation was placed on supplemental oxygen by EMS. It was quite challenging to obtain a reliable HPI from the patient as he is quite intoxicated. He said that he is homeless as not taking any medication. He drinks a pt of vodka and beers daily. He denies shortness or breath or chest pain. Per chart review, ETOH levels performed over the last 3 years has been basically elevated. He is ETOH level today is 350. Blood workup today is basically at baseline: Pancytopenia. No significant electrolyte imbalances. CO2 is 19, also at baseline. AST is elevated at 63. ALT is 13, alk-phos is 165 and total bilirubin is 0.9. BNP is 231 (yesterday it was 165). Troponin is 4.2. CXR showed prominent pulmonary vasculature which may indicate vascular congestion. CXR yesterday showed new cardiomegaly and clear lungs. Venous ultrasound performed due showed DVT. ECG showed normal sinus rhythm, 70 3 beats per minute without ischemic changes. ED tx: Furosemide 40 mg IV Hypomagnesemia . Repleted with IV. Resolved Acute hypoxic respiratory failure secondary to acute on chronic HFpEF. (TTE 11/05) showed normal LV EF 60-65% w/ impaired relaxation filling pattern, treated with IV Lasix, treated with supplemental O2 to keep O2 sats > 90% Alcohol intoxication/alcohol use disorder. Aspiration and fall precautions, has not required medication in the past and declines phenobarbitol, treated with Thiamine, folic acid and multivitamins Pancytopenia due to splenomegaly in the setting of alcoholic cirrhosis and alcoholism .At baseline. Elevated AST and alk-phos secondary to alcohol abuse. 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 No ascites. Per GI notes - Last EGD 01/23/24 with varices but no red stroud, portal hypertensive gastropathy and banding performed. Treated with Lactulose GERD. treated with PPI and sucralfate. Left knee and ankle pain, chronic, recent imaging with no fx or disclocation. treated with NSAID and Lidocaine patch. Treat as arthritic pain. Time Attestation Discharge Coordination Time (in mins): 42 Quality: Safe Use of Opioids Does Pt have an Active Cancer Diagnosis on the Problem List?: No Quality: Stroke Does the patient have a stroke diagnosis?: No Physical Exam Vital Signs: Vital Signs: Last Vital Signs Temp 99.6 F 05/27/25 07:52 Pulse 70 05/27/25 07:52 Resp 20 05/27/25 07:52 BP 97/55 L 05/27/25 07:52 Pulse Ox 93 05/27/25 07:52 O2 Del Method Room Air 05/27/25 07:52 O2 Flow Rate 1 05/27/25 03:41 BMI result Body Mass Index 19.7 Appearing in no acute distress head is normocephalic atraumatic eyes pupils are PERRLA sclera is anicteric mouth throat mucous membranes are intact and moist neck is supple no lymphadenopathy, no JVD noted lung sounds are clear to auscultation heart regular rate rhythm, clear S1, S2 positive bowel sounds, abdomen is soft, nontender neuro patient is alert x3, no focal deficits DS: Data Data Completed and Pending Completed studies during hospitalization [Text1]: Procedures Control Bleeding in Gastrointestinal Tract, Via Natural or Artificial Opening Endoscopic (08/29/23) Control Bleeding in Nasal Mucosa and Soft Tissue, Via Natural or Artificial Opening (11/29/24) Detoxification Services for Substance Abuse Treatment (02/11/25) Drainage of Peritoneal Cavity, Percutaneous Approach (10/21/24) Excision of Ascending Colon, Via Natural or Artificial Opening Endoscopic, Diagnostic (08/03/23) Excision of Descending Colon, Via Natural or Artificial Opening Endoscopic, Diagnostic (08/03/23) Insertion of Infusion Device into Upper Vein, Percutaneous Approach (08/29/23) Introduction of Mineral-based Topical Hemostatic Agent into Lower GI, Via Natural or Artificial Opening Endoscopic, [employer] (08/03/23) Introduction of Mineral-based Topical Hemostatic Agent into Upper GI, Via Natural or Artificial Opening Endoscopic, [employer] (08/29/23) Occlusion of Esophageal Vein with Extraluminal Device, Via Natural or Artificial Opening Endoscopic (11/29/24) Occlusion of Esophageal Vein, Via Natural or Artificial Opening Endoscopic (01/22/24) Transfusion of Nonautologous Plasma Cryoprecipitate into Peripheral Vein, Percutaneous Approach (08/03/23) Transfusion of Nonautologous Platelets into Peripheral Vein, Percutaneous Approach (11/29/24) Transfusion of Nonautologous Red Blood Cells into Peripheral Vein, Percutaneous Approach (11/29/24) Labs on day of discharge: Laboratory Results - last 24 hr 05/27/25 06:53 Magnesium 1.8 Total Bilirubin 1.1 H Direct Bilirubin 0.6 H AST 42 H ALT 8 Alkaline Phosphatase 154 H B-Natriuretic Peptide 31 Total Protein 7.1 Albumin 3.4 L Discharge Plan Discharge Anticipated Discharge Date/Time: 05/27/25 10:41 Patient Disposition: Home, Self-Care Discharge Diagnosis: Acute hypoxic respiratory failure CHF Hypomagnesemia Alcohol intoxication Chronic pancytopenia Discharge Medications: Continued No Known Home Meds Discharge Orders: Discharge Order (Routine); Ordered 05/27/25 Ordered By: Massiel Fall Diet: Advance to usual diet Activity on Discharge: As tolerated Stand Alone Forms: Patient Portal Discharge page Print Language: [place] Care Plan Goals: Do not drink alcohol, seek outpatient resources for assistance with this Health Concerns: Acute hypoxic respiratory failure CHF Alcohol intoxication Pancytopenia Plan of Treatment: Follow-up with primary care provider as needed Take all medications as prescribed Assessment: See discharge summary
[2025-05-27 11:31] VITALS: BP 132/60; PULSE 63; RESP 18; TEMP 36.9; O2SAT 98
== END 2025-05-27 11:40 | disposition home or self-care (01) | DRG 194 ==
LOC: HO.ED 16:10 → HO.EDOVER 18:04 → HO.IMC 19:31
PROVIDERS: Physician Assistant Medical; Admitting Provider Internal Medicine; Emergency Provider Emergency Medicine; Visit Provider Nurse Practitioner Acute Care
DX: I50.33 Acute on chronic diastolic (congestive) heart failure (principal); J96.01 Acute respiratory failure with hypoxia; D61.818 Other pancytopenia; F10.229 Alcohol dependence with intoxication, unspecified; K70.30 Alcoholic cirrhosis of liver without ascites; K21.9 Gastro-esophageal reflux disease without esophagitis; E83.42 Hypomagnesemia; D73.2 Chronic congestive splenomegaly; Z20.822 Contact with and (suspected) exposure to COVID-19; Y90.8 Blood alcohol level of 240 mg/100 ml or more; Z59.01 Sheltered homelessness; Z87.891 Personal history of nicotine dependence
CPT/HCPCS: 36415; 71046; 80048; 80053; 80076; 80307; 81003; 82947; 83735; 83880; 84484; 85025; 85027; 87637; 93005; 93306; 99285; J1885; J1938; J2470; J3411; J3475; P9047; Q9957; S9485

== ENCOUNTER → 2025-05-24 16:30 | Outpatient (BNV) | payer MEDICAID, SELFPAY | PROVIDERS: Emergency Provider Emergency Medicine; Visit Provider Radiology Diagnostic Radiology | DX: I28.8 Other diseases of pulmonary vessels (principal) | CPT/HCPCS: 71046 ==

== ENCOUNTER → 2025-05-24 16:34 | Outpatient (BNV) | payer MEDICAID, SELFPAY | PROVIDERS: Admitting Provider Internal Medicine; Emergency Provider Emergency Medicine; Visit Provider Internal Medicine Cardiovascular Disease | DX: I45.81 Long QT syndrome (principal) | CPT/HCPCS: 93010 ==

== ENCOUNTER 2025-05-24 18:03 | Outpatient (BNV) | payer MEDICAID, SELFPAY | END 2025-05-26 07:00 | PROVIDERS: Admitting Provider Internal Medicine; Emergency Provider Emergency Medicine; Visit Provider Internal Medicine | DX: I35.8 Other nonrheumatic aortic valve disorders (principal); I34.81 Nonrheumatic mitral (valve) annulus calcification; I36.1 Nonrheumatic tricuspid (valve) insufficiency; J81.0 Acute pulmonary edema | CPT/HCPCS: 93306 ==

== ENCOUNTER → 2025-05-24 18:03 | Outpatient (BNV) | payer MEDICAID, SELFPAY | PROVIDERS: Admitting Provider Internal Medicine; Emergency Provider Emergency Medicine; Visit Provider Internal Medicine | DX: F10.929 Alcohol use, unspecified with intoxication, unspecified (principal); I50.33 Acute on chronic diastolic (congestive) heart failure | CPT/HCPCS: 99223; 99232 ==

== ENCOUNTER 2025-06-05 11:21 | Emergency (ER) | payer MEDICAID, SELFPAY ==
--- NOTE | 2025-06-05 11:29 | ED_ITS ---
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 Currently patient is acutely intoxicated and limited historian. Related Data Home Medications ?Medication ?Instructions ?Recorded ?Confirmed No Known Home Meds 05/25/25 05/25/25 Allergies Allergy/AdvReac Type Severity Reaction Status Date / Time No Known Allergies (No Known Allergy Verified 06/05/25 11:40 Allergies*) Review of Systems 2 Constitutional: Constitutional: Reports as per HPI [facility] Past Medical History Medical History CHF (congestive heart failure) Alcohol use disorder Alcohol abuse Acute hypoxemic respiratory failure Anemia Pneumonia Alcohol withdrawal syndrome Pancytopenia Alcohol abuse Thrombocytopenia Esophageal varices Acute on chronic anemia Alcoholic liver disease Aspiration pneumonia Thrombocytopenia Malnutrition CHF (congestive heart failure) Anemia Hypomagnesemia Cirrhosis Thrombocytopenia Acute on chronic anemia CHF (congestive heart failure) Anemia Alcohol abuse Surgical History No history of previous surgery Social History Social History Household Members: None Household Members Other:: homeless Housing: Homeless Housing Other:: Homeless custodial Do you presently have visiting nurse or other home services: No Unable to assess alcohol history related to: Refusing to respond Alcohol intake: current Alcohol intake frequency: 3 or more drinks per day Alcohol type: beer and hard liquor Comment: pt refuse to have staff remain in [place] Patient Tobacco Use Status: Former Tobacco user Tobacco use type: Cigarette Second Hand Smoke Exposure: No Use of substances other than those prescribed or required for medical reasons: Unknown Advance Directives: Yes Advance Directives on File: Yes Advance Directives Date on File: 07/13/23 Do you have a plan to hurt others: No Plan service: No Physical Exam ED Vital Signs: Vital Signs - 24 hr 06/05/25 11:38 06/05/25 14:21 06/05/25 16:35 Temperature 97.7 F 97.4 F Pulse Rate 73 65 71 Respiratory Rate 18 18 16 Blood Pressure 101/57 L 115/69 99/49 L Pulse Oximetry 95 95 90 L Oxygen Delivery Method Nasal Cannula Nasal Cannula Room Air Oxygen Flow Rate 2 BMI result Body Mass Index 19.7 Const Other: * Gen: Chronically ill-appearing, alcohol on breath * HEENT: No scleral icterus, * Neck: Supple, no LAD * CV: RRR, no obvious murmurs appreciated * Resp: ?No wheezing, some bibasilar rhonchi, somewhat intoxicated * Abd: ?Bowel sounds are present, no tenderness no rebound no rigidity * MSK: No deformities to the ankles, he has a minimal edema around the ankles both sides distal pulses intact * Skin: Warm, dry, intact, * Neuro: ?Alert and oriented, intoxicated, moving upper and lower extremities symmetrically Course Course Course Narrative: This is an RME: Additional HPI, ROS, PE not included below will be deferred to primary provider. 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 He states that he drank .5 pint of vodka today. Of note, pt was admitted on 05/24- 05/27 due to etoh intoxication, and acute on chronic diastolic CHF. Pt found to be hypoxic on scene at 84% - placed on 2L NC. He is a poor historian, has had this pain in the past. No new injury. Plan: Labs, further ER eval needed Medications Administered Discontinued Medications Generic Name Dose Route Start Last Admin Trade Name Freq PRN Reason Stop Dose Admin Diazepam 5 mg 06/05/25 13:45 06/05/25 14:23 Diazepam 10 Mg/2 Ml Cartridge IVPUSH 06/05/25 13:46 5 mg STAT STA Administration Furosemide 40 mg 06/05/25 13:45 06/05/25 14:23 Furosemide 40 Mg/4 Ml Vial IVPUSH 06/05/25 13:46 40 mg ONCE ONE Administration Protocol Medical Decision Making Medical Decision Making MDM Narrative: 55-year-old male unfortunately with alcohol use disorder as well as history of CHF, noncompliance with medications, was found intoxicated and also hypoxic, he is doing well on 2 L nasal cannula, I degree of intoxication is likely contributing to hypoxia, we will workup for CHF, we will continue monitoring, may need to be admitted 13:50 at this point patient is ambulating but he is intoxicated and so it is not safe for him I will give IV Valium,, we will also as long as he is ambulating we will make sure that he is not hypoxic during ambulation trial, but I will need to continue monitoring him because although he is able to ambulate now he is not safe 15:47 patient ate and at this time he is sleeping in I have had him off nasal cannula so right now he is 93%, I think part of hypoxia is that probably positional but also it was intoxicated. We will continue to monitor [email or web address] patient bleeding unsteady gait does not want to go to detox B him multiple times with same complaints discharge patient home Differential Diagnosis Differential Diagnoses: The differential diagnosis associated with the presentation includes (CHF, COPD exacerbation, pneumonia, pneumothorax, ACS, PE,) Admission/Observation Consideration of admission/observation: Escalation of care including admission/observation considered 2022 Emergency Medicine Coding Guide from [employer] on 06/05/2025 All calculations should be rechecked by clinician prior to use RESULT SUMMARY: 5 Estimated Level of Service Problems: Moderate (4) Risk: High (5) Data: Extensive (5) NARRATIVE MDM: This patient's problem complexity is Moderate as patient: with chronic illness(es) with exacerbation/progression/side effects of treatment. This patient's risk is High due to: overall presentation requiring evaluation for a potentially High-risk process. This patient's data complexity is Extensive due to: -multiple tests ordered/reviewed -independent interpretation of imaging or EKG INPUTS: Number and Complexity ?> 3 = 4: chronic illness with exacerbation (c) Risk level ?> 4 = High Tests ordered ?> 3 = >= Tests results reviewed (excluding labs) ?> 2 = 2 Prior external notes reviewed ?> 0 = 0 Assessment requiring and independent historian ?> 0 = No Independent interpretation of tests ?> 1 = Yes Discussed management/test interpretation w/external professional ?> 0 = No Lab Data MDM Lab Attestation statement: I reviewed the patient's lab results. 06/05/25 11:54 06/05/25 11:54 Labs: Lab Results 06/05/25 06/05/25 06/05/25 Range/Units 11:54 11:59 14:41 WBC 4.5 L (4.8-10.8) X10*3/uL RBC 3.42 L (4.60-5.80) X10*6/uL Hgb 10.5 L (14.0-18.0) g/dl Hct 32.5 L (42.0-52.0) % MCV 95.0 (80.0-98.0) fL MCH 30.7 (27.0-33.0) pg MCHC 32.3 (31.0-36.0) g/dl RDW 17.2 H (11.0-16.0) % Plt Count 88 L D (160-400) X10*3/uL MPV 11.7 (9.4-12.4) fL Immature Gran % (Auto) 1.8 H (0.0-0.4) % Neut % (Auto) 60.9 (45-73) % Lymph % (Auto) 23.0 (20-40) % [place] % (Auto) 10.6 (2-11) % Eos % (Auto) 2.4 (0-4) % Baso % (Auto) 1.3 (0-2) % Lymph # (Auto) 1.0 L (1.2-4.9) X10*3/uL [place] # (Auto) 0.5 (0.1-1.2) X10*3/uL Eos # (Auto) 0.1 (0.0-0.4) X10*3/uL Baso # (Auto) 0.1 (0.0-0.2) X10*3/uL Abs Immat Gran (auto) 0.08 H (0.00-0.03) X10*3/uL Absolute Neuts (auto) 2.8 (2.0-8.3) x10*3/uL Absolute Nucleated RBC 0.000 (0.0-0.012) X10*3/uL Nucleated RBC % (auto) 0.0 (0.0-0.2) /100WBC VBG pH 7.41 (7.32-7.43) VBG pCO2 29 mmHg VBG pO2 109 mmHg VBG HCO3 19 L (22-26) mmol/L VBG O2 Saturation 99.0 % VBG Base Excess -4.5 mmol/L Sodium 145 (135-145) mmol/L Potassium 4.0 (3.3-5.1) mmol/L Chloride 115 H (96-108) mmol/L Carbon Dioxide 21 L (22-29) mmol/L Anion Gap 13 (12-20) BUN 15 (9-16) mg/dL Creatinine 0.70 (0.5-1.4) mg/dL Estim Creat Clear Calc 92.3 Estimated GFR > 60 Random Glucose 95 (60-115) mg/dL Calcium 8.1 L (8.4-10.2) mg/dL Magnesium 2.1 (1.6-2.6) mg/dL Total Bilirubin 0.5 (0.0-1.0) mg/dL Direct Bilirubin 0.3 (0.0-0.5) mg/dL AST 64 H (5-37) U/L ALT 12 (0-40) U/L Alkaline Phosphatase 151 H (39-117) U/L Total Creatine Kinase 34 L (38-174) U/L Troponin I High Sens < 2.7 (<3.5-35.0) ng/L B-Natriuretic Peptide 160 H (<100) pg/mL Total Protein 7.6 (6.5-8.0) g/dL Albumin 3.4 L (3.5-5.0) g/dL Urine Opiates Screen Not Detected (Not Detect) Ur Buprenorphine Scrn Not Detected (Not Detect) ng/mL Ur Oxycodone Screen Not Detected (Not Detect) ng/mL Urine Methadone Screen Not Detected (Not Detect) ng/mL Urine Fentanyl Screen Not Detected (Not Detect) Ur Barbiturates Screen POSITIVE H (Not Detect) Ur Phencyclidine Scrn Not Detected (Not Detect) Ur Amphetamines Screen Not Detected (Not Detect) U Benzodiazepines Scrn Not Detected (Not Detect) Urine Cocaine Screen Not Detected (Not Detect) U Marijuana (THC) Screen Not Detected (Not Detect) Ethyl Alcohol 394 H* mg/dL Independent Interpretation I performed an independent interpretation of an: EKG Discharge Plan Discharge Clinical Impression: Alcohol use disorder, Acute alcohol intoxication, Hypoxia Instructions: Alcohol Intoxication (DC) Additional Instructions: Alcohol use disorder You were seen in the Emergency Department today for treatment of alcohol use disorder.? You may have been given medications to help with your withdrawal symptoms.? Please do not drink alcohol with them. This is very dangerous and can cause respiratory depression or other adverse reactions depending on the medication. Monitor while in the emergency department, your oxygen level was low, you did receive medications for heart failure, the rest of the blood work has been reassuring If you would like to cut down or stop your alcohol use please consider calling our outpatient Addiction Treatment office:? [facility] (M-F [id number]) [address] [place] [address] [address] [facility] [phone]? You have also been given a list of treatment providers in the area that can assist as well.? If you experience seizures, vomiting blood, black stools, falls, severe headache, chest pain, fevers, trouble breathing, hallucinations or any other concerns you need to call 911 or seek immediate care. Please stay hydrated. Prescriptions: No Action No Known Home Meds Print Language: Greek
[2025-06-05 11:37] VITALS: BP 110/50; PULSE 74; O2SAT 84
[2025-06-05 11:38] VITALS: BP 101/57; PULSE 73; RESP 18; TEMP 36.5; O2SAT 95; BMI 19.7
[2025-06-05 11:59] LABS: MANUAL DIFF FLAG NO
[2025-06-05 12:01] LABS: Hematocrit 32.5 % (42.0-52.0); Hemoglobin 10.5 g/dl (14.0-18.0); Imm Gran Abs Auto 0.08 X10*3/uL (0.00-0.03); Imm Gran Pct Auto 1.8 % (0.0-0.4); Lymphocytes Absolute Auto 1.0 X10*3/uL (1.2-4.9); Mean Corpuscular HGB Conc 32.3 g/dl (31.0-36.0); Mean Corpuscular Hemoglobin 30.7 pg (27.0-33.0); Mean Corpuscular Volume 95.0 fL (80.0-98.0); NRBC Abs Auto 0.000 X10*3/uL (0.0-0.012); NRBC Pct Auto 0.0 /100WBC (0.0-0.2); Platelet Count 88 X10*3/uL (160-400); Red Blood Count 3.42 X10*6/uL (4.60-5.80); White Blood Count 4.5 X10*3/uL (4.8-10.8)
[2025-06-05 12:02] LABS: Venous Blood Gas Refer to POC result
[2025-06-05 12:03] LABS: VBG HCO3 19 mmol/L (22-26); VBG O2 % Saturation 99.0 %
[2025-06-05 12:14] LABS: Alanine Aminotransferase 12 U/L (0-40); Albumin Level 3.4 g/dL (3.5-5.0); Alkaline Phosphatase 151 U/L (39-117); Anion Gap 13 (12-20); Aspartate Amino Transferase 64 U/L (5-37); Blood Urea Nitrogen 15 mg/dL (9-16); Calcium 8.1 mg/dL (8.4-10.2); Carbon Dioxide 21 mmol/L (22-29); Chloride 115 mmol/L (96-108); Creatinine Clr Calc Pharmacy 92.3; Estimated Glomerular Filt Rate > 60; Magnesium 2.1 mg/dL (1.6-2.6); Potassium 4.0 mmol/L (3.3-5.1); Sodium 145 mmol/L (135-145); Total Protein 7.6 g/dL (6.5-8.0)
[2025-06-05 12:19] LABS: B Type Natriuretic Peptide 160 pg/mL (<100)
[2025-06-05 12:21] LABS: Troponin-I High Sensitivity < 2.7 ng/L (<3.5-35.0)
--- OUTSIDE RECORDS SUMMARY | 2025-06-05 12:37 | XMS_ITS | Data Portability ---
Author Organization [facility], Main Office Address [address] [address] [address] [place] [address] Care Team Providers Care Medtronics Technician Name Role Phone [facility] ([facility] OTHER Assessment Encounter Date [...] Time Harmful pattern of use of alcohol 07451820 Active 2022 HALEY WYATT [address] [facility], [address], [place], [address], [facility] 3 16:10:20 Alcoholic cirrhosis 916124155 Active 2022 HALEY WYATT [address] [place] [address], [address], [place], [address], [facility] 3 16:10:32 Anemia 484370187 Active 2022 HALEY WYATT [address] [place] [address], [address], [place], [address], [facility] 3 16:10:45 Hepatic encephalop athy 09610756 Active 2022 HALEY WYATT [address] [facility], [address], [place], [address], [facility] 3 16:11:37 Acute respirator y failure 14311009 Active 2022 HALEY WYATT [address] [place] [address], [address], [place], [address], [facility] 3 16:12:23 Laboratory finding abnormal Active 2022 hypokalemi a hypomagnes ium pancytopen ua repleted in acute care. mag oxide 400 mg BID HALEY WYATT [address] [facility], [address], [place], [address], [facility] 3 16:40:30 Congestive heart failure 44312816 Active 2022 HALEY WYATT [address] [facility], [address], [place], [address], [facility] 3 16:25:07 Homeless 95242888 Active 2022 HALEY WYATT [address] [place] [address], [address], [place], [address], [facility] 3 16:55:00 Pancytopen ia 140585354 Active 2022 HALEY WYATT [address] [place] [address], [address], [place], [address], [facility] 3 21:48:09 Esophageal varices 01139841 Active 2022 HALEY WYATT [address] [place] [address], [address], [place], [address], [facility] 3 16:19:34 Problem Notes None recorded. Medical Equipment None Reported. Allergies No known drug allergies Vitals Date Recorded Body temperature Oxygen saturation Oxygen saturation in Arterial blood by Pulse oximetry Heart rate Systolic And Diastolic Provider Name and Address Organization Details Last Updated DateTime 4 97.6 [degF] 95 % 95 % 67 /min 110/70 mm[Hg] Lis Oconnell MD [address] [place] [address], [facility] [address], [place], [address], [facility] 4 08:21:06 Date Recorded Heart rate Respiratory rate Body temperature Oxygen saturation Oxygen saturation in Arterial blood by Pulse oximetry Systolic And Diastolic Provider Name and Address Organization Details Last Updated DateTime 4 67 /min 16 /min 97.6 [degF] 95 % 95 % 107/66 mm[Hg] BRADY HOGAN NP [address] [place] [address], [address], [place], [address], [facility] 4 10:20:23 Social History Question Answer Notes LastModified by Organizat ion Details LastModified Time Tobacco Smoking Status Former Smoker HALEY WYATT [address] [facility], [address], [place], [address], [facility] 09/12/2023 16:57:06 Do You Have An Advance Directive? Yes Information not available 09/12/2023 What Is Your Level Of Caffeine Consumption? None Information not available 09/12/2023 What Is Your Code Status? Full Code Information not available 09/12/2023 Where Do You Live? Other Homeless Information not available 09/12/2023 Legal Guardian? No HCP/not Invoked Information not available 09/12/2023 Do You Have A Medical Power Of Dirt Bike Mechanic? No HCP/brother Information not available 09/12/2023 What [...] mcg/0.3 mL dose 3 completed Mojgan jain [facility] 11/10/2023 13:12:58 Tdap 1 completed Mojgan jain [facility] 03/01/2024 11:01:29 Td (adult), 5 Lf tetanus toxoid, preservative free, adsorbed 7 completed Mojgan jain [facility] 03/01/2024 11:06:00 Past Encounters Encounter ID Performer Location Encounter Start Date Encounter Closed Date Diagnosis/Indication Diagnosis SNOMED-CT Code Diagnosis ICD10 Code Diagnosis Note [id number] HALEY WYATT [facility] on [address] [place] [address] 09/12/2023 08:36:44 09/15/2023 08:04:55 Hepatic encephalopathy 90228129 K76.82 resolved in acute care/see hpistarted on lactuloser ifaximin 550 mg BIDlactulo se 40 g TID. Acute resp iratory failure 07006554 J96.00 with hypoxia d/t to acute on chronic heart failure-di uresed w/IV lasix resolved in acute care Anemia 571412129 D64.9 see hpiCT scan with distal esophageal varices.- EGD suspected gastric varies as source of bleedfollo w up with GI in 4 weeks for repeat EGD Congestive heart failure 45919152 I50.9 with preserved ejection fractionCT scan showed small plueral effusionCX R with bibasilar opacitiesc ontinue furosemide 20 mg BIDcontinu e spironolac tone 12.5 mg BIDlow salt diet.monit or weight Harmful pa ttern of use of alcohol 29910558 F10.10 with acute withdrawal in acute care tx with phenobarbi germania taper.decl ined recovery support in acute carethiami ne 100 mg dailyfolic acid 1 mg daily Bleeding g astric varices 61690295 I86.4 source of anemiaomep razole [address] dailysucra lfate 1 gm BIDcontinu e PPI and sucralfate Homeless 30674841 Z59.00 Social service refer for community resources. [id number] Lis Oconnell MD [facility] on [address] [place] [address] 09/13/2023 05:12:10 09/15/2023 08:33:31 Acute on chronic diastolic heart failure 231139675 I50.33 improved:s pironolact one 12.5 mg bidfurosem eliana 20 mg bidwill monitor Harmful pa ttern of use of alcohol 24863853 F10.10 thiamine 100 mg dailyfolic acid 1 gm dailyinter disciplina ry support for sobrietywi ll monitor and support as needed Bleeding e sophageal varices 85269856 I85.01 s/p blood transfusio ns, octeotride , banding/he mospray:om eprazole 40 mg dailysucra lfate 1 gm bidwill monitor Alcoholic cirrhosis 4200 [address]26[address] K70.31 Xifaxan 550 mg bidspirono lactone 12.5 mg bidfurosem eliana 20 mg bidwill monitor Hepatic encephalopathy 95716530 K76.82 lactulose 40 gm tidwill monitor [id number] HALEY WYATT [facility] on [address] [place] [address] 09/18/2023 11:37:36 09/20/2023 15:12:00 Congestive heart failure 13091425 I50.9 continue furosemide 20 mg BIDcontinu e spironolac tone 12.5 mg BIDlow salt diet.monit or weight Harmful pa ttern of use of alcohol 12285500 F10.10 will consider acamprosta te 666 mg TID.thiami ne 100 mg dailyfolic acid 1 mg daily Bleeding g astric varices 96829991 I86.4 source of anemiaomep razole [address] dailysucra lfate 1 gm BIDcontinu e PPI and sucralfate Hepatic encephalopathy 70253267 K76.82 resolved in acute care/see hpistarted on lactuloser ifaximin 550 mg BIDlactulo se 40 g TID.- reports loose stool x's 1 daily. will continue to monitor for now . [id number] HALEY WYATT [facility] on [address] [place] [address] 10/06/2023 10:25:53 10/18/2023 12:16:47 Altered mental status 470755654 R41.82 see hpiconcern for hepatic encephalop athy due to hxsend to ER for further evaluation [id number] HALEY WYATT [facility] on [address] [place] [address] 10/12/2023 13:49:36 10/18/2023 15:10:16 Hepatic encephalopathy 93517732 K76.82 resolved in acute care/see hpiimaging with no acute processCon tinue lactulose, rifaximin, Lasix, spironolac toneFollow -up outpatient GI Congestive heart failure 97564886 I50.9 continue furosemide 20 mg BIDcontinu e spironolac tone 12.5 mg BIDlow salt diet.monit or weight Pancytopenia 891182365 D 61.818 wbc 3.41-Hgb 7.3-HCT 23.2Possib ly due to alcohol abuseWill continue to monitor CBC [id number] HALEY WYATT [facility] on [address] [place] [address] 10/16/2023 13:03:21 11/22/2023 15:10:28 Hepatic encephalopathy 21288697 K76.82 resolved in acute care/see hpiimaging with no acute processCon tinue lactulose, rifaximin, Lasix, spironolac toneFollow -up outpatient GI Congestive heart failure 52117826 I50.9 continue furosemide 20 mg BIDcontinu e spironolac tone 12.5 mg BIDlow salt diet.monit or weight Pancytopenia 568463237 D 61.818 see aboveimpro kiki hgb 8.8- Plt 68Possibly due to alcohol abuseWill continue to monitor CBC [id number] HALEY WYATT [facility] on [address] [place] [address] 10/24/2023 11:18:12 11/03/2023 11:47:28 Hepatic encephalopathy 62696891 K76.82 alert and oriented x's 2 today unsure of date.resol kiki in acute care/see hpiimaging with no acute processCon tinue lactulose, rifaximin, Lasix, spironolac toneFollow -up outpatient GI Congestive heart failure 75785278 I50.9 Stablke, no reported sxcontinue furosemide 20 mg BIDcontinu e spironolac tone 12.5 mg BIDlow salt diet.monit or weight Pain of le ft shoulder joint 8986922892 1549410 M25.512 see hpixray 3 viewstylen ol 975 mg scheduledm otrin 600 mg scheduled. PT referral for pain with abduction. [id number] HALEY WYATT [facility] on [address] [place] [address] 10/27/2023 09:08:50 11/03/2023 12:28:46 Hepatic encephalopathy 35550884 K76.82 appears to be a baseline status, however he appears disoriente d at times.Cont inue lactulose, rifaximin, Lasix, spironolac toneFollow -up outpatient GI Congestive heart failure 86639107 I50.9 Stablecont inue furosemide 20 mg BIDcontinu e spironolac tone 12.5 mg BIDlow salt diet.monit or weight Pain of le ft shoulder joint 6422223130 8813921 M25.512 Xray completed, results reviewed with patient: Mild degenerati on of the left shoulder; no acute fracture or dislocatio n. continue with:tylen ol 975 mg scheduledm otrin 600 mg scheduled. PT referral for pain with abduction. [id number] HALEY WYATT [facility] on [address] [place] [address] 11/08/2023 08:13:22 11/22/2023 16:43:01 Daisy-Zee tear 770898739 K22.6 2 days of melena with coffee-kell und emesis on presentati on.GI consulted and performed upper endoscopy on 10/31, evidence of daisy zee tear, gastric ulcers s/p clip placement. continue PPI omeprazole 40 mg twice daily.Carv edilol started as per recommenda tions for esophageal varicesPat ient was advised to avoid NSAID Esophageal varices 06605 008 I85.00 Started on carvedilol 6.25 mg bidomepraz ole 40 mg bidsucralf ate 1 gm BID Anemia 954470769 D64.9 Hgb 6.4 on presentati on to acute careDue to upper GI bleed,Rece ived 3 units of PRBC in acute careCarved ilol started for varices [id number] HALEY WYATT [facility] on [address] [place] [address] 11/14/2023 07:57:53 12/01/2023 10:08:54 Daisy-Zee tear 983487279 K22.6 11/14 there has been no reported couging and vomiting. 2 days of melena with coffee-kell und emesis on presentati on.GI consulted and performed upper endoscopy on 10/31, evidence of daisy zee tear, gastric ulcers s/p clip placement. continue PPI omeprazole 40 mg twice daily.Carv edilol started as per recommenda tions for esophageal varicesPat ient was advised to avoid NSAID Esophageal varices 88337 008 I85.00 stableStar forrest on carvedilol 6.25 mg bidomepraz ole 40 mg bidsucralf ate 1 gm BID Anemia 199556890 D64.9 11/14will recheck labspatien t denies excess fatigue, weakness, shortness of breathdoes not appear pale, color normal. Hgb 6.4 on presentati on to acute careDue to upper GI bleed,Rece ived 3 units of PRBC in acute careCarved ilol started for varices [id number] HALEY WYATT [facility] on [address] [place] [address] 11/17/2023 08:07:13 12/01/2023 11:37:06 Daisy-Zee tear 179394946 K22.6 stable, There has been no new reported sx.2 days of melena with coffee-kell und emesis on presentati on.GI consulted and performed upper endoscopy on 10/31, evidence of daisy zee tear, gastric ulcers s/p clip placement. continue PPI omeprazole 40 mg twice daily.Carv edilol started as per recommenda tions for esophageal varicesPat ient was advised to avoid NSAID Esophageal varices 02573 008 I85.00 stableStar forrest on carvedilol 6.25 mg bidomepraz ole 40 mg bidsucralf ate 1 gm BID Anemia 727157516 D64.9 11/15: hgb 8.0 hct 25.6will recheck labs Hgb 6.4 on presentati on to acute careDue to upper GI bleed,Rece ived 3 units of PRBC in acute careCarved ilol started for varices [id number] Lis Oconnell MD [facility] on [address] [place] [address] 11/24/2023 08:20:43 11/29/2023 17:59:33 Harmful pattern of use of alcohol 61557232 F10.10 thiamine 100 mg dailyfolic acid 1 gm dailyMVI dailyacamp rosate 666 mg tidinterdi sciplinary support for sobrietywi ll monitor and support as needed Upper gastrointestinal bleeding 48609463 K92.89 with history varices, Daisy Zee tear:sucra lfate 1 gm bidomepraz ole 40 mg [id number] monitoravo id NSAIDs Alcoholic cirrhosis 4200 56897 K70.31 Xifaxan 550 mg bidspirono lactone 12.5 mg bidfurosem eliana 20 mg dailylactu lose 40gm tidwill monitor Esophageal varices 36558 008 I85.00 see meds for history UGI bleed:also carvedilol 6.25 mg bidwill monitor [id number] BRADY HOGAN NP [facility] on [address] [place] [address] 11/28/2023 09:53:56 12/01/2023 12:57:26 Harmful pattern of use of alcohol 08931198 F10.10 thiamine 100 mg dailyfolic acid 1 gm dailyMVI dailyacamp rosate 666 mg tidinterdi sciplinary support for sobrietywi ll monitor and support as needed Upper gastrointestinal bleeding 60092936 K92.89 with history varices, Daisy Zee tear:sucra lfate 1 gm bidomepraz ole 40 mg u96oapck monitoravo id NSAIDs Alcoholic cirrhosis 4200 23742 K70.31 Xifaxan 550 mg bidspirono lactone 12.5 mg bidfurosem eliana 20 mg dailylactu lose 40gm tidwill monitor Esophageal varices 75466 008 I85.00 see meds for history UGI bleed:carv edilol 6.25 mg bidwill monitor Health Concerns Section Related Observation LastModified by Organization Detai ls LastModified Time None Recorded Concern Status LastModified by Organization Details LastModified Time None Recorded Advance Directives Directive Y: Payers Insurance Date Sequence Insurance Name Policy Number Policy Yip Covered Member ID Yip Member ID Guarantor Name 04/19/2024 1 [place] [id number] Charbel Delgado [id number] Charbel Delgado Notes Date Note Type Note Provider Name and Address Organization Details Recorded Time 11/08/2023 text/html ROS as noted in the HPI Patient is 53-year-old male seen today for re-admission. Past medical [...] few weeks. Molst: Fullcode HALEY WYATT [address] [facility], [address], [place], [address], [facility] 11/08/2023 16:31:23 11/14/2023 text/html ROS as noted in the HPI Patient is 53-year-old male seen today for acute rounding visit. Today he is stable, he was sent to ED on 11/09 for hgb noted 7.0 and had repeat labs in ED hgb 8.1. He returned to [facility] the same evening and has been [...] in a few weeks. HALEY WYATT [address] [facility], [address], [place], [address], [facility] 11/14/2023 21:53:11/17/2023 text/html ROS as noted in the HPI Patient is 53-year-old male seen today for acute rounding visit. [...] no acute nursing concerns. HALEY WYATT [address] [facility], [address], [place], [address], [facility] 11/17/2023 13:21:44 11/24/2023 text/html This 53 year old male halfway care resident is seen today for routine rounding visit and acute rounding visit. Medical history is remarkable for history of alcohol use disorder with alcoholic cirrhosis, HFpEF, hypertension, ADHD, anxiety, depression Patient was sent out of facility to ER at [facility] on 10/30/23 with melena and coffee-ground emesis. [...] on. Advanced directives: no signed MOLST in [facility] record at this time; full code assumed Lis Oconnell MD [address] [facility], [address], [place], [address], [facility] 11/24/2023 12:23:26 11/28/2023 text/html ROS as noted in the HPI seen today for acute rounding visit, CAOx3 he is complaining about being bored, independent in room, gait steady, mood stable, staff report no concerns BRADY HOGAN NP [address] [facility], [address], [place], [address], [facility] [employer] 11/28/2023 10:23:34
--- OUTSIDE RECORDS SUMMARY | 2025-06-05 12:37 | XMS_ITS | Encounter Summary ---
Author Organization [facility] Address [address] [facility] [address] [place] [address] Phone Care Team Providers Care Safety Scientist Name Role Phone [facility], [facility] Primary Care Provider Pcp, Unknown Unavailable Unavailable Encounter Details Date Type Department Care Team ([facility] st Contact Info) Description 10/31/2023 Procedure Pass [facility] Endoscopy Admitting Dept Virtual Department [address] [place] [phone] Social History Tobacco Use Types Packs/Day Years Used Date Smoking Tobacco: Unknown Alcohol Use Standard Drinks/Week Comments Not Currently 0 (1 standard drink = 0.6 oz pur e alcohol) Education Answer Date Recorded Are you interested in more education? Not on bakari e 10/06/2023 Are you concerned about learning? Not on file 10/06/2023 No 10/06/2023 No 10/06/2023 Digital Access Answer Date Recorded No 10/06/2023 No 10/06/2023 Reliable internet access at home? Not on file 10/06/2023 Device with a working camera? Not on file Sex and Gender Information Value Date Recorded Sex Assigned at Male 11/09/2023 1:44 PM EST Legal Sex Male 7:03 PM EST Gender Identity Male 11/09/2023 1:44 PM EST Sexual Orientation Not on file documented as of this encounter Plan of Treatment Not on file documented as of this encounter Visit Diagnoses Not on filedocumented in this encounter Care Teams Safety Scientist Relationship Specialty Start Date End Date [facility] [address] [place] [address] PCP - General 10/07/23 Pcp, Unknown 10/07/23 documented as of this encounter Additional Source Comments The information contained in this document represents components of the legal health record. It is not the complete legal health record.[facility]
--- OUTSIDE RECORDS SUMMARY | 2025-06-05 12:37 | XMS_ITS | Clinical Summary ---
Author Organization [facility] Address [address] [place] [address] [address] [place] [address] Care Team Providers Care Hard Hat Diver Name Role Phone Missy Milner RN Unavailable [phone] Young Conor Unavailable Allergies No known active [...] Patient presented with altered mental status from [facility] where he appeared more lethargic than [...] Encounters Date Type Department Care Team Description 06/05/2025 Orders Only GENERIC EXTERNAL DATA DEPARTMENT Provider, Generic External Data 05/30/2025 Patient Outreach [facility] [address] [place] [phone] Missy Milner RN Care Coordination ([facility]/W Conor Vidal, TC #4 Initial outreach attempt_lvm ) 05/23/2025 Orders Only GENERIC EXTERNAL DATA DEPARTMENT Provider, Generic External Data 05/21/2025 Orders Only GENERIC EXTERNAL DATA DEPARTMENT Provider, Generic External Data 05/19/2025 Patient Outreach [facility] [address] [place] [address] Missy Milner RN 05/13/2025 Orders Only [facility] External Provider, [facility] 05/09/2025 Patient Outreach [facility] [address] [place] [address] Missy Milner RN 05/08/2025 1:00 PM EDT Office Visit [facility] [address] [place] [phone] Karely Guerra MD 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 Please make this patient a high priority.); NEW PATIENT AAPT REQUEST 05/08/2025 Travel 05/05/2025 Orders Only GENERIC EXTERNAL DATA DEPARTMENT Provider, Generic External Data 05/02/2025 Patient Outreach [facility] [address], [place] [phone] Missy Milner RN 05/02/2025 Patient Outreach [facility] [address] [place], [place] [phone] Missy Milner RN 05/02/[address] [address] Misti Murry MD NEW PT APPT 05/02/2025 Patient Outreach [address] [address] Misti Murry MD Care Coordination ([facility]/W Conor Vidal, TC #3 initial outreach attempt, appt reminder_lvm) 04/30/[address] [address] Misti Murry MD CHART PREP 04/30/2025 Orders Only GENERIC EXTERNAL DATA DEPARTMENT Provider, Generic External Data 04/28/2025 Patient Outreach [address] [address] Misti Murry MD Care Coordination ([facility] Conor Vidal, TC #2 initial outreach attempt_lvm ) 04/24/2025 Patient Outreach [address] [address] Misti Murry MD 04/23/2025 Results Follow-Up [address] [address] Misti Murry MD XR Chest 2 Views 04/23/2025 Patient Outreach [address] [address] Misti Murry MD Pre-visit Planning ((Unable to reach for PVP screening, LVM) to be completed in office) 04/23/2025 Patient Outreach [address] [address] Misti Murry MD Care Coordination ([facility]/W Conor Vidal, Initial outreach attempt_lvm ) 04/23/2025 Patient Outreach [address] [address] Misti Murry MD Care Coordination ([facility] Conor Vidal, Chart review ) 04/23/2025 Patient Outreach [facility] [address] [place] [address] Misti Murry MD Care Coordination ([facility] chart review) 04/23/2025 Patient Outreach [facility] [address] [place] [address] Misti Murry MD 04/22/2025 Telephone [facility] [address] [place] [address] Chinedu Brenner MD 04/21/2025 Telephone [facility] [address] [place] [address] Chinedu Brenner MD 04/19/2025 Orders Only [facility] External Provider, [facility] 04/09/2025 Telephone [facility] [address] [place] [address] Misti Murry MD Telephone Call 03/31/2025 Patient Outreach [facility] [address] [place] [address] Misti Murry MD Care Coordination (Care Coordination) 03/31/2025 Patient Outreach [facility] [address] [place] [address] Misti Murry MD 03/31/2025 Patient Outreach [facility] [address] [place] [address] Misti Murry MD 03/27/2025 Patient Outreach [facility] [address] [place] [address] Misti Murry MD 03/14/2025 Patient Outreach [facility] [address] [place] [address] Misti Murry MD Care Coordination (C3/CM Outreach) 03/07/2025 Patient Outreach [facility] [address] [place] [address] Misti Murry MD from Last 3 Months Immunizations Immunization Administration Dates Next Due [facility] SARS-CoV-2 Vaccination 04/28/2021 Pfizer Covid-19 Vaccine 12+ [...] Procedure Name Priority Date/Time Associated Diagnosis Comments VENOUS BLOOD GAS Routine 06/05/2025 11:5 9 AM EDT HIGH SENSITIVITY TROPONIN I Routine 06/05/2025 11:54 AM EDT B TYPE NATRIURETIC PEPTIDE (BNP) Routine 06/05/2025 11:54 AM EDT ETHANOL Routine 06/05/2025 11:54 AM EDT CREATINE KINASE, TOTAL Routine 11:54 AM EDT MAGNESIUM Routine 06/05/2025 11:54 AM EDT BASIC METABOLIC PANEL Routine 06/05/2025 11:54 AM EDT HEPATIC FUNCTION PANEL Routine 11:54 AM EDT CBC WITH AUTO DIFFERENTIAL Routine 06/05/2025 11:54 AM EDT HIGH SENSITIVITY TROPONIN I Routine 05/23/2025 8:17 PM EDT VASC US LOWER EXTREMITY VENOUS DUPLEX BILATERAL Routine 05/23/2025 7:11 PM EDT HIGH SENSITIVITY TROPONIN I Routine 05/23/2025 4:10 PM EDT SARS COV2/INFLUENZA A/B AND RSV RNA QL NAAT Routine 05/23/2025 4:10 PM EDT XR CHEST 2 VIEWS Routine 05/23/2025 2:29 PM EDT B TYPE NATRIURETIC PEPTIDE (BNP) Routine 05/23/2025 1:50 PM EDT ETHANOL Routine 05/23/2025 1:50 PM EDT LIPASE Routine 05/23/2025 1:50 PM EDT MAGNESIUM Routine 05/23/2025 1:50 PM EDT HEPATIC FUNCTION PANEL Routine 1:50 PM EDT COMPREHENSIVE METABOLIC PANEL Routine 05/23/2025 1:50 PM EDT CBC WITH AUTO DIFFERENTIAL Routine 05/23/2025 1:50 PM EDT DRUG MONITOR, PANEL 1, SCREEN, URINE Routine 05/21/2025 9:02 PM EDT US VENOUS DUPLEX LE LT Routine 10:50 [...] 2 VIEWS Routine 04/19/2025 9:35 AM EDT from Last 3 Months Results * (ABNORMAL) VENOUS BLOOD GAS (06/05/2025 11:59 AM EDT) VBG pH 7.41 7.32 - 7.43 [facility] Comment:METER #: [id number] additional_comment: Cbnievea VBG PCO2 29 mmHg [facility] Comment:METER #: [id number] additional_comment: Cbnievea VBG PO2 109 mmHg [facility] Comment:METER #: [id number] additional_comment: Cbnievea VBG Base Excess -4.5 mmol/L [facility] Comment:METER #: [id number] additional_comment: Hever VBG HCO3 19(L) 22 - 26 mmol/L [facility] Comment:METER #: [id number] additional_comment: Hever O2 Sat, Demetrio 99.0 % [facility] Comment:METER #: [id number] additional_comment: Hever 06/05/2025 11:5 9 AM EDT 06/05/2025 12:03 PM EDT Generic External Data Provider LAB BLOOD ORDERAB LES Final Result Performing Organization Address [facility] Co de Phone Number [facility] [address] [place] [phone] * High Sensitivity Troponin I (06/05/2025 11:54 AM EDT) Only the most recent of3 resultswithin the time period is included. TROPONIN I HIGH SENSITIVITY <2.7 <3.5 - 35.0 ng/L [facility] Comment:The Connolly high sens itivity Troponin-I results should beused in conjunction with other diagnostic information suchas ECG, clinical observations and information, and patientsymptoms to aid in the diagnosis of [place]. 06/05/2025 11:5 4 AM EDT 06/05/2025 11:57 AM EDT us Generic External Data Provider LAB BLOOD ORDERAB LES Final Result Performing Organization Address [facility]/ZIP Co de Phone Number [facility] [address] [place] [phone] * (ABNORMAL) Ethanol (06/05/2025 11:54 AM EDT) Only the most recent of2 resultswithin the time period is included. ETHANOL (MG/DL) IN SER/PLAS 394(HH) mg/dL [facility] Comment:Serum/plasma ethanol results are to be used formedical/treatment purposes only. 06/05/2025 11:5 4 AM EDT 06/05/2025 11:57 AM EDT us Generic External Data Provider LAB BLOOD ORDERAB LES Final Result [facility] [address] [place] [address] [phone] * (ABNORMAL) CBC auto differential (06/05/2025 11:54 AM EDT) Only the most recent of4 resultswithin the time period is included. White Blood Count 4.5(L) 4.8 - 10.8 X10*3/uL [facility] Red Blood Count 3.42(L) 4.60 - 5.80 X10*6/uL [facility] Hemoglobin 10.5(L) 14.0 - 18.0 g/dl [facility] Hematocrit 32.5(L) 42.0 - 52.0 % [facility] Mean Corpuscular Volume 95.0 80.0 - 98.0 fL [facility] Mean Corpuscular Hemoglobin 30.7 27.0 - 33.0 pg [facility] Mean Corpuscular HGB Conc 32.3 31.0 - 36.0 g/dl [facility] Red Cell Distribution Width 17.2(H) 11.0 - 16.0 % [facility] Platelet Count 88(L) 160 - 400 X10*3/uL [facility] Mean Platelet Volume 11.7 9.4 - 12.4 fL [facility] Neutrophils Percent Auto 60.9 45 - 73 % [facility] Imm Gran Pct Auto 1.8(H) 0.0 - 0.4 % [facility] Lymphocytes Percent Auto 23.0 20 - 40 % [facility] Monocytes Percent Auto 10.6 2 - 11 % [facility] Eosinophils Percent Auto 2.4 0 - 4 % [facility] Basophils Percent Auto 1.3 0 - 2 % [facility] NRBC Pct Auto 0.0 0.0 - 0.2 /100WBC [facility] Neutrophils Absolute Auto 2.8 2.0 - 8.3 x10*3/uL [facility] Imm Gran Abs Auto 0.08(H) 0.00 - 0.03 X10*3/uL [facility] Lymphocytes Absolute Auto 1.0(L) 1.2 - 4.9 X10*3/uL [facility] Monocytes Absolute Auto 0.5 0.1 - 1.2 X10*3/uL [facility] Eosinophils Absolute Auto 0.1 0.0 - 0.4 X10*3/uL [facility] Basophils Absolute Auto 0.1 0.0 - 0.2 X10*3/uL [facility] NRBC Abs Auto 0.000 0.0 - 0.012 X10*3/uL [facility] 06/05/2025 11:5 4 AM EDT 06/05/2025 11:57 AM EDT us Generic External Data Provider LAB BLOOD ORDERAB LES Final Result Performing Organization Address City/[facility]/ZIP Co de Phone Number [facility] [address] [place] [phone] * (ABNORMAL) B Type Natriuretic Peptide (BNP) (06/05/2025 11:54 AM EDT) Only the most recent of3 resultswithin the time period is included. B Type Natriuretic Peptide 160(H) <100 pg/mL [facility] 06/05/2025 11:5 4 AM EDT 06/05/2025 11:57 AM EDT us Generic External Data Provider LAB BLOOD ORDERAB LES Final Result Performing Organization Address City/[facility]/ZIP Co de Phone Number [facility] [address] [place] [phone] * Magnesium (06/05/2025 11:54 AM EDT) Only the most recent of3 resultswithin the time period is included. Pathologist [facility] Magnesium 2.1 1.6 - 2.6 mg/dL [facility] 06/05/2025 11:5 4 AM EDT 06/05/2025 11:57 AM EDT Generic External Data Provider LAB BLOOD ORDERAB LES Final Result Performing Organization Address [facility] Co de Phone Number [facility] [address] [place] [phone] * (ABNORMAL) Creatine Kinase, Total (06/05/2025 11:54 AM EDT) Only the most recent of2 resultswithin the time period is included. [facility] Creatine Kinase Total 34(L) 38 - 174 U/L [facility] 06/05/2025 11:5 4 AM EDT 06/05/2025 11:57 AM EDT Generic External Data Provider LAB BLOOD ORDERAB LES Final Result Performing Organization Address [facility] Co de Phone Number [facility] [address] [place] [phone] * (ABNORMAL) Hepatic Function Panel (06/05/2025 11:54 AM EDT) Only the most recent of3 resultswithin the time period is included. [facility] Bilirubin, Total 0.5 0.0 - 1.0 mg/dL [facility] Bilirubin, Direct 0.3 0.0 - 0.5 mg/dL [facility] Aspartate Amino Transferase 64(H) 5 - 37 U/L [facility] Alanine Aminotransferase 12 0 - 40 U/L [facility] Total Protein 7.6 6.5 - 8.0 g/dL [facility] Albumin Level 3.4(L) 3.5 - 5.0 g/dL [facility] Alkaline Phosphatase 151(H) 39 - 117 U/L [facility] 06/05/2025 11:5 4 AM EDT 06/05/2025 11:57 AM EDT us Generic External Data Provider LAB BLOOD ORDERAB LES Final Result [facility] [address] [place] [phone] * (ABNORMAL) Basic Metabolic Panel (06/05/2025 11:54 AM EDT) Only the most recent of2 resultswithin the time period is included. Sodium 145 135 - 145 mmol/L [facility] Potassium 4.0 3.3 - 5.1 mmol/L [facility] Chloride 115(H) 96 - 108 mmol/L [facility] Carbon Dioxide 21(L) 22 - 29 mmol/L [facility] Anion Gap 13 12 - 20 [facility] Urea Nitrogen (BUN) 15 9 - 16 mg/dL [facility] Creatinine, Serum 0.70 0.5 - 1.4 mg/dL [facility] Creatinine Clr Calc Pharmacy 92.3 [facility] Comment:eGFR (calculated fro m the MDRD study equation) and eCrCl(calculated from the Cockcroft-Gault equation) are based ondifferent parameters and may not yield comparable results.If eCrCl result is absurd, please check patient'sheight/weight. Estimated Glomerular Filt Rate >60 [facility] Comment:Chronic Kidney Disea se: Estimated GFR < 60 mL/min/1.93w8Boyrmg Kidney Disease: Estimated GFR < 15 mL/min/1.73m2 Glucose 95 60 - 115 mg/dL [facility] Calcium 8.1(L) 8.4 - 10.2 mg/dL [facility] 06/05/2025 11:5 4 AM EDT 06/05/2025 11:57 AM EDT us Generic External Data Provider LAB BLOOD ORDERAB LES Final Result [facility] [address] [place] [phone] * VASC US Lower Extremity Venous Duplex Bilateral (05/23/2025 7:11 PM EDT) 05/23/2025 7:11 PM EDT Narrative [facility] - 05/23/2025 7:12 PM EDT [place] [address] Ultrasound Report Signed Patient: Charbel Delgado MR#: [id number] : 1970 Acct:[id number] Age/Sex: 55 / M ADM Date: 05/23/25 Loc: HO.ED Attending Dr: Ordering Physician: Dexter Foster Date of Service: 05/23/25 Procedure(s): US venous duplex LE BI Accession Number(s): [id number] cc: Dexter Foster; [facility] CLINICAL HISTORY: bilateral leg swelling Venous duplex ultrasound bilateral lower extremity Comparison: None provided Findings: The visualized deep veins are fully compressible with normal Doppler color flow and spectral tracings. No popliteal cyst. IMPRESSION: 1. Negative for bilateral lower extremity deep vein thrombosis. This document has been electronically signed by: Edith Palomares MD on 05/23/2025 19:11:02 Dictated By: Edith Palomares MD Signed By: <Electronically signed by Edith Palomares MD in OV> 05/23/251910 DD/ 10 TD/TT: 05/23/251910 Bingo Caller: Procedure Note Donotuseinterpreter, Image - 05/23/[address] [address] Ultrasound Report Signed Patient: Rod DelgadoR#: [id number] : 1970Acct:[id number] Age/Sex: 55 / MADM Date: 05/23/25 Loc: HO.ED Attending Dr: Ordering Physician: Dexter Foster Date of Service: 05/23/25 Procedure(s): US venous duplex LE BI Accession Number(s): [id number] cc: Dexter Foster; [facility] CLINICAL HISTORY: bilateral leg swelling Venous duplex ultrasound bilateral lower extremity Comparison: None provided Findings: The visualized deep veins are fully compressible with normal Doppler color flow and spectral tracings. No popliteal cyst. IMPRESSION: 1. Negative for bilateral lower extremity deep vein thrombosis. This document has been electronically signed by: Edith Palomares MD on 05/23/2025 19:11:02 Dictated By: Edith Palomares MD Signed By: <Electronically signed by Edith Palomares MD in OV> 05/23/251910 DD/ 10 TD/TT: 05/23/251910 Bingo Caller: us [facility] External Provider CV VASC ULAR PROCEDURES Final Result [facility] [address] [place] [address] * SARS-CoV-2 RNA, Influenza A/B, and RSV RNA, Ql NAAT (05/23/2025 4:10 PM EDT) Influenza A PCR NEGATIVE Negative [facility] Influenza B PCR NEGATIVE Negative [facility] Resp Syncy Virus RNA Qual PCR NEGATIVE Negative [facility] SARS COV2 PCR NEGATIVE Negative [facility] Comment:All test results mus t [...] use by authorized laboratories.Testing performed on the [employer] GeneXpert utilizingreal-time RT-PCR.All SARS CoV2 and positive influenza A/B results arereported to [facility]. 05/23/2025 4:10 PM EDT 05/23/2025 4:15 PM EDT us Generic External Data Provider LAB MICROBIOLOGY - GENERAL ORDERABLES Final Result [facility] [address] [place] [phone] * XR Chest 2 Views (05/23/2025 2:29 PM EDT) Only the most recent of4 resultswithin the time period is included. Anatomical Region Laterality Modality Chest Radiographic Lamar ging 05/23/2025 2:29 PM EDT Narrative 05/23/2025 3:42 PM EDT [address] [address] XRay Report Signed Patient: Charbel Delgado MR#: [id number] : 1970 Acct:[id number] Age/Sex: 55 / M ADM Date: 05/23/25 Loc: HO.ED Attending Dr: Ordering Physician: Dexter Foster Date of Service: 05/23/25 Procedure(s): XR chest 2V Accession Number(s): [id number] cc: Dexter Foster; [facility] EXAMINATION: XR CHEST 2 VIEWS HISTORY: sob COMPARISON: Comparison is made with the prior examination dated 05/05/2025. FINDINGS: PA and lateral views of the chest are submitted. The lungs are expanded and clear. There is no pleural effusion, pneumothorax, or pulmonary vascular congestion. The heart is enlarged which is a new finding. There is a severe compression deformity of a midthoracic vertebral body without change. XR/XR chest 2V IMPRESSION: New cardiomegaly. The lungs are clear. Electronically signed by: Dony Nunn MD 05/23/2025 03:40 PM EDT Dictated By: Dony Nunn MD Signed By: <Electronically signed by Dony Nunn MD in OV> 05/23/25 1540 DD/ 1429 TD/TT: 05/23/25 1534 Bingo Caller: Procedure Note Donotuseinterpreter, Image - 05/23/[address] [address] XRay Report Signed Patient: Isaias Delgado#: [id number] : 1970Acct:[id number] Age/Sex: 55 / MADM Date: 05/23/25 Loc: HO.ED Attending Dr: Ordering Physician: Dexter Foster Date of Service: 05/23/25 Procedure(s): XR chest 2V Accession Number(s): [id number] cc: Dexter Foster; [facility] EXAMINATION: XR CHEST 2 VIEWS HISTORY: sob COMPARISON: Comparison is made with the prior examination dated 05/05/2025. FINDINGS: PA and lateral views of the chest are submitted. The lungs are expanded and clear. There is no pleural effusion, pneumothorax, or pulmonary vascular congestion. The heart is enlarged which is a new finding. There is a severe compression deformity of a midthoracic vertebral body without change. XR/XR chest 2V IMPRESSION: New cardiomegaly. The lungs are clear. Electronically signed by: Dony Nunn MD 05/23/2025 03:40 PM EDT Dictated By: Dony Nunn MD Signed By: <Electronically signed by Dony Nunn MD in OV> 05/23/25 1540 DD/ 1429 TD/TT: 05/23/25 1534 Bingo Caller: us [facility] External Provider IMG XR PROCEDURES Final Result * Lipase (05/23/2025 1:50 PM EDT) Lipase 21 8 - 78 U/L [facility] 05/23/2025 1:50 PM EDT 05/23/2025 1:53 PM EDT Generic External Data Provider LAB BLOOD ORDERAB LES Final Result [facility] [address] [place] [phone] * (ABNORMAL) Comprehensive Metabolic Panel (05/23/2025 1:50 PM EDT) Only the most recent of2 resultswithin the time period is included. Sodium 141 135 - 145 mmol/L [facility] Potassium 3.9 3.3 - 5.1 mmol/L [facility] Chloride 113(H) 96 - 108 mmol/L [facility] Carbon Dioxide 18(L) 22 - 29 mmol/L [facility] Anion Gap 14 12 - 20 [facility] Urea Nitrogen (BUN) 10 9 - 16 mg/dL [facility] Creatinine, Serum 0.73 0.5 - 1.4 mg/dL [facility] Creatinine Clr Calc Pharmacy 92.0 [facility] Comment:eGFR (calculated fro m the MDRD study equation) and eCrCl(calculated from the Cockcroft-Gault equation) are based ondifferent parameters and may not yield comparable results.If eCrCl result is absurd, please check patient'sheight/weight. Estimated Glomerular Filt Rate >60 [facility] Comment:Chronic Kidney Disea se: Estimated GFR < 60 mL/min/1.31z0Uteztj Kidney Disease: Estimated GFR < 15 mL/min/1.73m2 Glucose 94 60 - 115 mg/dL [facility] Calcium 8.2(L) 8.4 - 10.2 mg/dL [facility] Bilirubin, Total 0.7 0.0 - 1.0 mg/dL [facility] Aspartate Amino Transferase 56(H) 5 - 37 U/L [facility] Alanine Aminotransferase 10 0 - 40 U/L [facility] Total Protein 7.6 6.5 - 8.0 g/dL [facility] Albumin Level 3.3(L) 3.5 - 5.0 g/dL [facility] Alkaline Phosphatase 180(H) 39 - 117 U/L [facility] 05/23/2025 1:50 PM EDT 05/23/2025 1:53 PM EDT us Generic External Data Provider LAB BLOOD ORDERAB LES Final Result [facility] [address] [place] [phone] * (ABNORMAL) Drug Monitoring, Panel 1, Screen, Urine (05/21/2025 9:02 PM EDT) Opiate Screen Urine Not Detected Not Detect [facility] Comment:Opiate cut-off is 30 0 ng/mL.Positive results are unconfirmed and should not be used fornon-medical purposes. Barbiturates, Urine POSITIVE(A) Not Detect [facility] Comment:Barbiturate cut-off is 200 ng/mL.Positive results are unconfirmed and should not be used fornon-medical purposes. Phencyclidine Screen Urine Not Detected Not Detect [facility] Comment:Phencyclidine cut-of f is 25 ng/mL.Positive results are unconfirmed and should not be used fornon-medical purposes. Amphetamine Screen Urine Not Detected Not Detect [facility] Comment:Amphetamine cut-off is 1000 ng/mL.Positive results are unconfirmed and should not be used fornon-medical purposes. Benzodiazepines Screen Urine Not Detected Not Detect [facility] Comment:Benzodiazepine cut-o ff is 200 ng/mL.Positive results are unconfirmed and should not be used fornon-medical purposes. Cocaine Screen Urine Not Detected Not Detect [facility] Comment:Cocaine cut-off is 3 00 ng/mL.Positive results are unconfirmed and should not be used fornon-medical purposes. Cannabinoid Screen Urine Not Detected Not Detect [facility] Comment:Cannabinoid cut-off is 50 ng/mL.Positive results are unconfirmed and should not be used fornon-medical purposes. Methadone Screen, Urine Not Detected Not Detect ng/mL [facility] Comment:Methadone cut-off is 300 ng/mL.Positive results are unconfirmed and should not be used fornon-medical purposes. FENTANYL URINE Not Detected Not Detect [facility] [facility] Comment:Fentanyl cut-off is 1 ng/mL.Positive results are unconfirmed and should not be used fornon-medical purposes. Oxycodone Urine Screen Not Detected Not Detect ng/mL [facility] Comment:Oxycodone cut-off is 100 ng/mL.Positive results are unconfirmed and should not be used fornon-medical purposes. Buprenorphine Screen Not Detected Not Detect ng/mL [facility] Comment:Buprenorphine cut-of f is 5 ng/mL.Positive results are unconfirmed and should not be used fornon-medical purposes. 05/21/2025 9:02 PM EDT 05/21/2025 9:05 PM EDT us Generic External Data Provider LAB URINE ORDERAB LES Final Result Performing Organization Address City/State/[facility] Co de Phone Number [facility] [address] [place] [phone] * US VENOUS DUPLEX LE LT (05/13/2025 10:50 PM EDT) Anatomical Region Laterality Modality Abdomen Ultrasound 05/13/2025 10:5 0 PM EDT Narrative 05/13/2025 10:51 PM EDT [address] [address] Ultrasound Report Signed Patient: Charbel Delgado MR#: [id number] : 1970 Acct:[id number] Age/Sex: 55 / M ADM Date: 05/13/25 Loc: .ED Attending Dr: Ordering Physician: David Galvez PA-C Date of Service: 05/13/25 Procedure(s): US venous duplex LE LT Accession Number(s): [id number] cc: [facility]; David Galvez PA-C CLINICAL HISTORY: Swelling; [...] in OV> 05/13/252250 DD/ 49 TD/TT: 05/13/252249 Bingo Caller: Procedure Note Donotuseinterpreter, Image - 05/13/[address] [address] Ultrasound Report Signed Patient: Isaias Delgado#: [id number] : 1970Acct:[id number] Age/Sex: 55 / MADM Date: 05/13/25 Loc: HO.ED Attending Dr: Ordering Physician: David Galvez PA-C Date of Service: 05/13/25 Procedure(s): US venous duplex LE LT Accession Number(s): [id number] cc: [facility]; David Galvez PA-C CLINICAL HISTORY: Swelling; [...] in OV> 05/13/252250 DD/ 49 TD/TT: 05/13/252249 Bingo Caller: us [facility] External Provider IMG US PROCEDURES Final Result * Blood Culture (First) (04/30/2025 9:19 AM EDT) Blood Venous blood specimen / Unknown 04/30/2025 9:19 AM EDT 04/30/2025 9:24 AM EDT Comment:Blood Narrative [facility] - 05/05/2025 11:24 AM EDT Blood Culture (First) No growth after 5 days. Specimen Source: Blood Generic External Data Provider LAB MICROBIOLOGY - GENERAL ORDERABLES Final Result [facility] [address] [place] [phone] * Blood Culture (Second) (04/30/2025 9:19 AM EDT) Blood Venous blood specimen / Unknown 04/30/2025 9:19 AM EDT 04/30/2025 9:24 AM EDT Comment:Blood Narrative [facility] - 05/05/2025 11:24 AM EDT Blood Culture (Second) No growth after 5 days. Specimen Source: Blood us Generic External Data Provider LAB MICROBIOLOGY - GENERAL ORDERABLES Final Result Performing Organization Address [facility]/ZIP Co de Phone Number [facility] [address] [place] [phone] * (ABNORMAL) Sed Rate by Modified Matthewergren (04/30/2025 9:19 AM EDT) Erythrocyte Sedimentation Rate 26(H) 0 - 15 MM/HR [facility] Comment:Patients with polycy themia and many hemoglobin abnormalitiesmay have depressed sed rates whereas patients with anemiamay have elevated sed rates. 04/30/2025 9:19 AM EDT 04/30/2025 9:24 AM EDT us Generic External Data Provider LAB BLOOD ORDERAB LES Final Result Performing Organization Address [facility]/ZIP Co de Phone Number [facility] [address] [place] [phone] * (ABNORMAL) Glucose, Whole Blood (04/19/2025 7:43 PM EDT) Glucose, Whole Blood 122(H) 60 - 115 mg/dL [facility] Comment:METER #: [id number] 04/19/2025 7:43 PM EDT 04/19/2025 7:47 PM EDT us Generic External Data Provider LAB BLOOD ORDERAB LES Final Result Performing Organization Address City/[facility]/ZIP Co de Phone Number [facility] [address], [place] [phone] from Last 3 Months Insurance [facility] HSN PARTIAL [facility] C3 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
--- NOTE | 2025-06-05 13:49 | ECG_ITS ---
Test Reason : dyspnea Blood Pressure : */* mmHG Vent. Rate : 66 BPM Atrial Rate : 66 BPM P-R Int : 162 ms QRS Dur : 92 ms QT Int : 430 ms P-R-T Axes : 36 18 18 degrees QTcB Int : 450 ms Normal sinus rhythm Normal ECG When compared with ECG of 24-May-2025 16:45, No significant change was found Referred By: Beck Greer Electronically Signed By: Brayan Negron
[2025-06-05 14:21] VITALS: BP 115/69; PULSE 65; RESP 18; O2SAT 95
[2025-06-05] MEDS: Furosemide 40 MG/4 ML VIAL IVPUSH (14:23)
[2025-06-05] MEDS: diazePAM 10 MG/2 ML CARTRIDGE 5 MG IVPUSH (14:23)
[2025-06-05 14:58] LABS: Cannabinoid Screen Urine Not Detected (Not Detect)
[2025-06-05 16:35] VITALS: BP 99/49; PULSE 71; RESP 16; TEMP 36.3; O2SAT 90
[2025-06-05 17:56] VITALS: BP 100/58; PULSE 65; RESP 16; TEMP 36.3; O2SAT 92
== END 2025-06-05 17:57 | disposition home or self-care (01) ==
PROVIDERS: Physician Assistant Medical; Emergency Provider Emergency Medicine
DX: K70.30 Alcoholic cirrhosis of liver without ascites (principal); R53.1 Weakness; F10.229 Alcohol dependence with intoxication, unspecified; Y90.8 Blood alcohol level of 240 mg/100 ml or more; D69.6 Thrombocytopenia, unspecified; I50.32 Chronic diastolic (congestive) heart failure; M79.605 Pain in left leg; R09.02 Hypoxemia; Z59.00 Homelessness unspecified; Z91.148 Patient's other noncompliance with medication regimen for other reason
CPT/HCPCS: 36415; 80048; 80076; 80307; 82550; 82803; 83735; 83880; 84484; 85025; 93005; 96374; 96375; 99284; J1938; J3360

== ENCOUNTER → 2025-06-05 13:49 | Outpatient (BNV) | payer MEDICAID, SELFPAY | PROVIDERS: Emergency Provider Emergency Medicine; Visit Provider Internal Medicine Cardiovascular Disease | DX: R06.00 Dyspnea, unspecified (principal) | CPT/HCPCS: 93010 ==

== ENCOUNTER 2025-06-08 16:14 | Emergency (ER) | payer MEDICAID, SELFPAY ==
--- NOTE | ~2025-06-08 | XR_ITS ---
CLINICAL HISTORY: hypoxic 1 view chest x-ray Comparison: CR - XR CHEST 2V - 05/24/25 16:41 EDT Findings: Mildly diffuse interstitial opacities with bronchial wall thickening. No significant pleural effusion or pneumothorax. Enlarged cardiac silhouette. No acute fracture. IMPRESSION: Possible small airways disease. This document has been electronically signed by: Randal Mendoza MD on 06/08/2025 18:03:09
[2025-06-08 16:21] VITALS: BP 112/58; BP 127/68; PULSE 69; PULSE 77; RESP 20; TEMP 36.3; O2SAT 95; O2SAT 98; BMI 20.2
--- NOTE | 2025-06-08 16:43 | ED_ITS ---
HPI - Alcohol General Chief Complaint: ETOH/Substance Use Stated Complaint: etoh, L knee pain Time Seen by Provider: 06/08/25 16:17 Source: patient and EMS Mode of arrival: EMS Limitations: no limitations History of Present Illness ED Provider: Dr. Alexandria Sweeney HPI narrative: Patient comes to the emergency room via ambulance. Patient was found in the rain sleeping on the floor. EMS picked him up. According to the patient he did not fall, patient reports drinking a lot of beer and vodka. Patient states that he will refuse to go to detox. Patient states that he did not even want to come, he was sent by PD, and EMS picked him up being was brought to the emergency room. Patient did not object. Per EMS, patient's oxygen saturation what AC 6% on room air picked him up, patient was put on 4 L nasal cannula, O2 improved to 95%. Patient has no new complaints, complaining of chronic left leg pain. No new injuries. Related Data Home Medications ?Medication ?Instructions ?Recorded ?Confirmed No Known Home Meds 05/25/25 05/25/25 Allergies Allergy/AdvReac Type Severity Reaction Status Date / Time No Known Allergies (No Known Allergy Verified 06/08/25 16:27 Allergies*) Review of Systems 2 Review of Systems: Constitutional : No Weight loss, No Fever, No Chills, No Night Sweats, No Fatigue, No Malaise ENT/Mouth : No Hearing loss, No Ear Pain, No Nasal Congestion, No Sinus Pain, No Hoarseness, No sore throat, No Rhinorrhea, No Swallowing Difficulty Eyes: No Eye Pain, No Swelling, No Redness, No Foreign Body, No Discharge, No Vision Changes Cardiovascular : No Chest Pain, No SOB, No Dyspnea on Exertion, No Orthopnea, No Edema, No Palpitations Respiratory : No Cough, No Sputum, No Wheezing, No Smoke Exposure, No Dyspnea Gastrointestinal : No Nausea, No Vomiting, No Diarrhea, No Constipation, No abdominal Pain, No Hematochezia, No Melena Genitourinary : no irregular bleeding, No Dysuria, No Urinary Frequency, No Hematuria, No Urinary Incontinence, No Urgency, No Flank Pain, No Urinary Flow Changes, No Hesitancy Musculoskeletal : Complaining of chronic left leg pain No Myalgias, No Joint Swelling Skin : No Skin Lesions, No rash Neuro : No Weakness, No Numbness, No Paresthesias, No Loss of Consciousness, No Dizziness, No Headache Psych : No Anxiety/Panic, No Depression, No SI/HI/AH/VH, admits to alcohol dependence, does not want detox Heme/Lymph: No Bruising, No Bleeding,No Lymphadenopathy Endocrine : No Polyuria, No Polydipsia, No Temperature Intolerance [facility] Past Medical History Medical History CHF (congestive heart failure) Alcohol use disorder Alcohol abuse Acute hypoxemic respiratory failure Anemia Pneumonia Alcohol withdrawal syndrome Pancytopenia Alcohol abuse Thrombocytopenia Esophageal varices Acute on chronic anemia Alcoholic liver disease Aspiration pneumonia Thrombocytopenia Malnutrition CHF (congestive heart failure) Anemia Hypomagnesemia Cirrhosis Thrombocytopenia Acute on chronic anemia CHF (congestive heart failure) Anemia Alcohol abuse Surgical History No history of previous surgery Social History Social History Household Members: None Household Members Other:: homeless Housing: Homeless Housing Other:: Homeless snf Do you presently have visiting nurse or other home services: No Unable to assess alcohol history related to: Refusing to respond Alcohol intake: current Alcohol intake frequency: 3 or more drinks per day Alcohol type: beer and hard liquor Comment: pt refuse to have staff remain in [place] Patient Tobacco Use Status: Former Tobacco user Tobacco use type: Cigarette Smoked in Last 30 Days: No Second Hand Smoke Exposure: No Advance Directives: Yes Advance Directives on File: Yes Advance Directives Date on File: 07/13/23 service: No Physical Exam ED Exam Exam: Appearance: Alert. Oriented X3. No acute distress. Starting his work, intoxicated Eyes: Pupils equal, round and reactive to light. ENT: Pharynx normal. Neck: Normal inspection. Neck supple. No lymph nodes noted. No crepitus CVS: Normal heart rate and rhythm. Pulses normal. Normal S1 and S2 Respiratory: No respiratory distress. Breath sounds normal. No Wheezing. No rales Abdomen: Soft and nontender. No rigidity. No distention. Skin: Skin warm and dry. Normal skin color. Normal skin turgor. Extremities: +1 pitting edema bilaterally Neuro: Oriented X 3. No motor deficit. No sensory deficit. Moving all extremities. No slurred speech. CN 2 through 12 grossly intact Psych: calm, cooperative, normal affect Vital Signs: Vital Signs - 24 hr 06/08/25 16:21 06/08/25 18:20 06/08/25 21:20 Temperature 97.4 F 98.4 F 98.1 F Pulse Rate 69 64 66 Respiratory Rate 20 18 14 Blood Pressure 127/68 91/51 L 94/50 L Pulse Oximetry 98 95 93 Oxygen Delivery Method Nasal Cannula Nasal Cannula Nasal Cannula Oxygen Flow Rate 1 2 BMI result Body Mass Index 20.2 Course Course Course Narrative: Every time that the patient comes to the emergency room, he is hypoxic. He is supposed to been oxygen. However, he is homeless. Today, EMS reports an oxygen saturation of 86% on room air. Patient denies any new URI symptoms Currently, oxygen saturation is in the mid 90s on 4 L, patient was weaned down to 1L, saturating 94%. All of patient's labs pending Medical Decision Making Medical Decision Making [facility] Narrative: My interpretation of labs: Patient's hematology is at baseline including a low platelet count of 72, no new abnormality in patient's chemistry, LFTs chronically elevated, troponin negative, BNP 148, which chest pain elevated before. ETOH for 25, serology negative for influenza RSV and COVID Chest x-ray does not show any acute abnormality. Small airway disease? No infiltrates We are trying to wean patient off of oxygen. 6:01 AM 06/09/2025 (Dr. Lurdes Manjarrez, D.O.) patient feeling improved, ambulatory in the emergency department without assistance. He is off of oxygen and has no shortness of breath. Plan for discharge and outpatient follow-up as needed. Encouraged alcohol cessation. Differential Diagnosis Differential Diagnoses: The differential diagnosis associated with the presentation includes (Alcohol intoxication, alcohol dependence, polysubstance abuse, viral URI, chronic hypoxia) Admission/Observation Consideration of admission/observation: Escalation of care including admission/observation considered (Given patient's initial presentation and low O2 sat, needing oxygen, admission has been considered) Lab Data [facility] Lab Attestation statement: I reviewed the patient's lab results. 06/08/25 17:01 06/08/25 17:01 Labs: Lab Results 06/08/25 Range/Units 17:01 WBC 3.8 L (4.8-10.8) X10*3/uL RBC 3.47 L (4.60-5.80) X10*6/uL Hgb 10.6 L (14.0-18.0) g/dl Hct 32.5 L (42.0-52.0) % MCV 93.7 (80.0-98.0) fL MCH 30.5 (27.0-33.0) pg MCHC 32.6 (31.0-36.0) g/dl RDW 16.5 H (11.0-16.0) % Plt Count 72 L (160-400) X10*3/uL MPV 12.1 (9.4-12.4) fL Immature Gran % (Auto) 0.8 H (0.0-0.4) % Neut % (Auto) 60.3 (45-73) % Lymph % (Auto) 26.6 (20-40) % Lipscomb % (Auto) 8.6 (2-11) % Eos % (Auto) 2.1 (0-4) % Baso % (Auto) 1.6 (0-2) % Lymph # (Auto) 1.0 L (1.2-4.9) X10*3/uL Lipscomb # (Auto) 0.3 (0.1-1.2) X10*3/uL Eos # (Auto) 0.1 (0.0-0.4) X10*3/uL Baso # (Auto) 0.1 (0.0-0.2) X10*3/uL Abs Immat Gran (auto) 0.03 (0.00-0.03) X10*3/uL Absolute Neuts (auto) 2.3 (2.0-8.3) x10*3/uL Absolute Nucleated RBC 0.000 (0.0-0.012) X10*3/uL Nucleated RBC % (auto) 0.0 (0.0-0.2) /100WBC Sodium 144 (135-145) mmol/L Potassium 3.4 (3.3-5.1) mmol/L Chloride 114 H (96-108) mmol/L Carbon Dioxide 20 L (22-29) mmol/L Anion Gap 13 (12-20) BUN 9 (9-16) mg/dL Creatinine 0.66 (0.5-1.4) mg/dL Estim Creat Clear Calc 100.2 Estimated GFR > 60 Random Glucose 92 (60-115) mg/dL Calcium 8.2 L (8.4-10.2) mg/dL Magnesium 2.0 (1.6-2.6) mg/dL Total Bilirubin 0.7 (0.0-1.0) mg/dL Direct Bilirubin 0.4 (0.0-0.5) mg/dL AST 66 H (5-37) U/L ALT 15 (0-40) U/L Alkaline Phosphatase 133 H (39-117) U/L Troponin I High Sens < 2.7 (<3.5-35.0) ng/L B-Natriuretic Peptide 148 H (<100) pg/mL Total Protein 7.8 (6.5-8.0) g/dL Albumin 3.5 (3.5-5.0) g/dL Ethyl Alcohol 425 H* mg/dL Influenza Type A (PCR) NEGATIVE (Negative) Influenza Type B (PCR) NEGATIVE (Negative) RSV RNA Qual (PCR) NEGATIVE (Negative) SARS-CoV-2 RNA (RT-PCR) NEGATIVE (Negative) Independent Interpretation I performed an independent interpretation of an: Plain X-Ray Radiology Impression Discussion of test interpretation with radiology: I have reviewed the radiologist's reading. Radiologist Impression: Mildly diffuse interstitial opacities with bronchial wall thickening. No significant pleural effusion or pneumothorax. Enlarged cardiac silhouette. No acute fracture. IMPRESSION: Possible small airways disease. Discharge Plan Discharge Clinical Impression: Alcoholic intoxication, Hypoxia Patient Disposition: Home, Self-Care Instructions: Alcohol Intoxication (ED) Prescriptions: No Action No Known Home Meds Print Language: Turkmen
[2025-06-08 17:06] LABS: MANUAL DIFF FLAG NO
[2025-06-08 17:10] LABS: Hematocrit 32.5 % (42.0-52.0); Hemoglobin 10.6 g/dl (14.0-18.0); Imm Gran Abs Auto 0.03 X10*3/uL (0.00-0.03); Imm Gran Pct Auto 0.8 % (0.0-0.4); Lymphocytes Absolute Auto 1.0 X10*3/uL (1.2-4.9); Mean Corpuscular HGB Conc 32.6 g/dl (31.0-36.0); Mean Corpuscular Hemoglobin 30.5 pg (27.0-33.0); Mean Corpuscular Volume 93.7 fL (80.0-98.0); NRBC Abs Auto 0.000 X10*3/uL (0.0-0.012); NRBC Pct Auto 0.0 /100WBC (0.0-0.2); Red Blood Count 3.47 X10*6/uL (4.60-5.80); White Blood Count 3.8 X10*3/uL (4.8-10.8)
[2025-06-08 17:12] LABS: Platelet Count 72 X10*3/uL (160-400)
[2025-06-08 17:23] LABS: Alanine Aminotransferase 15 U/L (0-40); Albumin Level 3.5 g/dL (3.5-5.0); Alkaline Phosphatase 133 U/L (39-117); Anion Gap 13 (12-20); Aspartate Amino Transferase 66 U/L (5-37); Blood Urea Nitrogen 9 mg/dL (9-16); Calcium 8.2 mg/dL (8.4-10.2); Carbon Dioxide 20 mmol/L (22-29); Chloride 114 mmol/L (96-108); Creatinine Clr Calc Pharmacy 100.2; Estimated Glomerular Filt Rate > 60; Magnesium 2.0 mg/dL (1.6-2.6); Potassium 3.4 mmol/L (3.3-5.1); Sodium 144 mmol/L (135-145); Total Protein 7.8 g/dL (6.5-8.0)
[2025-06-08 17:27] LABS: B Type Natriuretic Peptide 148 pg/mL (<100)
[2025-06-08 17:46] LABS: Resp Syncy Virus RNA Qual PCR NEGATIVE (Negative); SARS COV2 PCR INHOUSE NEGATIVE (Negative)
[2025-06-08 17:52] LABS: Troponin-I High Sensitivity < 2.7 ng/L (<3.5-35.0)
[2025-06-08 18:20] VITALS: BP 91/51; PULSE 64; RESP 18; TEMP 36.9; O2SAT 95
--- NOTE | 2025-06-08 18:23 | PC.NURSE ---
arrived via ems for complaints of knee pain. per ems patient was observed walking down the street hours earlier but then was sitting down saying he could not walk. 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 sating 95% on 1 liters 02.
[2025-06-08 21:20] VITALS: BP 94/50; PULSE 66; RESP 14; TEMP 36.7; O2SAT 93
[2025-06-09 06:16] VITALS: BP 92/59; PULSE 74; RESP 16; TEMP 36.5; O2SAT 90
== END 2025-06-09 06:17 | disposition home or self-care (01) ==
PROVIDERS: Emergency Medicine; Emergency Provider Emergency Medicine
DX: F10.129 Alcohol abuse with intoxication, unspecified (principal); Y90.8 Blood alcohol level of 240 mg/100 ml or more; R09.02 Hypoxemia; Z03.818 Encounter for observation for suspected exposure to other biological agents ruled out; Z51.81 Encounter for therapeutic drug level monitoring; Z79.899 Other long term (current) drug therapy
CPT/HCPCS: 36415; 71045; 80048; 80076; 80307; 83735; 83880; 84484; 85025; 87637; 99283; 99284

== ENCOUNTER → 2025-06-08 16:40 | Outpatient (BNV) | payer MEDICAID, SELFPAY | PROVIDERS: Emergency Provider Emergency Medicine; Visit Provider Radiology Diagnostic Radiology | DX: J84.9 Interstitial pulmonary disease, unspecified (principal) | CPT/HCPCS: 71045 ==

== ENCOUNTER 2025-06-18 20:09 | Inpatient (IN) | payer MEDICAID, SELFPAY ==
--- NOTE | ~2025-06-18 | XR_ITS ---
CLINICAL HISTORY: Hypoxia 2 view chest x-ray Comparison: CR - XR CHEST 1V - 06/08/25 17:07 EDT Findings: Retrocardiac opacity that can be appreciated on the lateral view, not present on 05/24/2025 chest radiograph. Also, increased interstitial lung markings compared to prior. No pleural effusions. Normal size heart. Osseous structures unremarkable. IMPRESSION: Retrocardiac opacity best seen on the lateral view, new since 05/24/2025. Possible pneumonia in the appropriate clinical setting. Increased prominence of interstitial lung markings that can be related to vascular congestion. This document has been electronically signed by: Oskar Tariq MD on 06/18/2025 23:47:36
--- NOTE | ~2025-06-18 | CT_ITS ---
CLINICAL HISTORY: Hypoxia, ? PNA vs CHF CT chest with contrast Comparison: CR - XR CHEST 2V - 06/18/25 22:20 EDT Findings: Limited visualization of the neck due to significant patient rotation. Thyroid and mediastinum are unremarkable. No cervical, mediastinal, subcarinal, hilar, or axillary lymphadenopathy. Heart size is normal. No pericardial effusion. Intrathoracic vasculature is unremarkable. Central airways are patent. Right lower lobe, basilar segment of the left upper lobe, and most significantly the left lower lobe demonstrate patchy consolidation with subtle air bronchograms. Findings may reflect atelectasis or pneumonia in the appropriate clinical setting. Vascular congestion from CHF is less likely in that not all lobes are affected. Extensive esophageal varices. Perigastric varices. Hepatic steatosis, hepatomegaly, and trace perihepatic ascites. Splenomegaly. Calcified gallstone. Osseous structures are unremarkable. IMPRESSION: Right lower lobe, basilar segment of the left upper lobe, and most significantly the left lower lobe demonstrating atelectasis or pneumonia in the appropriate clinical setting. Vascular congestion from CHF less likely due to lack of diffuse pulmonary involvement. Cirrhosis, as demonstrated by extensive esophageal and perigastric varices, hepatomegaly, splenomegaly, and trace perihepatic ascites. This document has been electronically signed by: Oskar Tariq MD on 06/19/2025 04:46:17
--- NOTE | ~2025-06-18 | XR_ITS ---
CLINICAL HISTORY: hpyoxia 1 view chest Comparison: CT/REG/SR - [facility]AX CHEST_IV_CONTRAST (ADULT) - 06/19/25 02:43 EDT CR - XR CHEST 2V - 06/18/25 22:20 EDT Findings: Cardiac and mediastinal contours are normal. There is interstitial prominence with scattered peribronchial thickening. Patchy bibasilar density. No effusion. No pneumothorax. No acute osseous finding. Impression: Patchy bibasilar density, slightly worse. This document has been electronically signed by: Anurag Singletary MD on 06/22/2025 09:55:25
[2025-06-18 20:22] VITALS: BP 120/74; PULSE 90; O2SAT 94
[2025-06-18 20:23] VITALS: BP 101/48; PULSE 94; RESP 18; TEMP 36.7; O2SAT 90; BMI 19.4
--- NOTE | 2025-06-18 20:57 | ED.GENADULT ---
HPI - General Adult General Chief complaint: Extremity Problem Stated complaint: Bi lat leg pain/swelling,etoh Time Seen by Provider: 06/18/25 20:33 Source: patient and EMS Mode of arrival: EMS History of Present Illness ED Provider: David WALLACE HPI narrative: The patient is a 55-year-old male presenting to the ED for evaluation of bilateral lower extremity edema worse on the left with associated left leg pain which is chronic but worse compared to baseline. Patient also presents to the ED actively intoxicated with alcohol, patient has a known history of alcohol dependency. The patient denies any recent injury to the leg however the patient's reliability is questionable. Upon arrival in the ED patient was noted to be hypoxic in the 80s on room air, placed on FiO2 with improvement into the low 90s. Patient also noted to be borderline tachycardic and hypotensive. The patient's chart review reveals patient was admitted in mid May for acute on chronic hypoxic respiratory failure with diagnosis of HFwPREF. Related Data Home Medications ?Medication ?Instructions ?Recorded ?Confirmed acetaminophen 325 mg tablet 325 mg PO Q6H PRN Migraine Headache 06/19/25 06/19/25 Allergies Allergy/AdvReac Type Severity Reaction Status Date / Time No Known Allergies (No Known Allergy Verified 06/18/25 20:25 Allergies*) Review of Systems Review of Systems: Yes all other systems are reviewed and are negative PMFSH Past Medical History Medical History CHF (congestive heart failure) Alcohol use disorder Alcohol abuse Acute hypoxemic respiratory failure Anemia Pneumonia Alcohol withdrawal syndrome Pancytopenia Alcohol abuse Thrombocytopenia Esophageal varices Acute on chronic anemia Alcoholic liver disease Aspiration pneumonia Thrombocytopenia Malnutrition CHF (congestive heart failure) Anemia Hypomagnesemia Cirrhosis Thrombocytopenia Acute on chronic anemia CHF (congestive heart failure) Anemia Alcohol abuse Surgical History No history of previous surgery Social History Social History Household Members: None Household Members Other:: homeless Housing: Homeless Housing Other:: Homeless senior care Do you presently have visiting nurse or other home services: No Unable to assess alcohol history related to: Refusing to respond Alcohol intake: current Alcohol intake frequency: 3 or more drinks per day Alcohol type: beer and hard liquor Comment: pt refuse to have staff remain in BR Patient Tobacco Use Status: Former Tobacco user Tobacco use type: Cigarette Second Hand Smoke Exposure: No Advance Directives: Yes Advance Directives on File: Yes Advance Directives Date on File: 07/13/23 service: No Physical Exam ED Exam Exam: CONSTITUTIONAL: The patient appears chronically ill, unkempt, clinically intoxicated, odor of EtOH metabolites on breath, slurred speech, otherwise well nourished and in no acute distress. Vital signs as documented. HEAD: Atraumatic, normocephalic. EYES: EOMs grossly intact, pupils equal, conjunctiva clear, no exudate. ENT: Nares patent, no discharge. Airway patent, no audible stridor, visible mucosa is pink and moist without noted lesions. NECK: Trachea is midline, no obvious masses or gross abnormalities. CHEST: Symmetric movement, normal appearance. LUNGS: LS present with bibasilar rales, non-labored work of breathing at rest with FiO2 via nasal cannula. CARDIAC: Regular Rhythm, S1/S2 appreciated, no murmurs, rubs or gallops. ABDOMEN: Abdomen soft and non-tender x4 quadrants, no palpable masses or organomegaly. : Deferred. EXTREMITIES: 1+ pitting edema of the right lower extremity, 2+ pitting edema of the left lower extremity, no obvious erythema, induration, or evidence of infection. No open lesions. Normal tone, no obvious acute injury or deformity noted. NEURO: Alert and oriented x3, CN II-XII appear grossly intact. Cerebellar Functioning grossly intact. No obvious sensory or motor deficits. Speech clear and appropriate. PSYCH: Mildly agitated affect, but with appropriate eye contact, slurred speech, but with appropriate response to questioning. No reported suicidality or homicidality. SKIN: Warm, dry, color appropriate, normal turgor. No rashes noted. Vital Signs: Vital Signs - 24 hr 06/18/25 20:23 06/19/25 00:00 Temperature 98.1 F 98.2 F Pulse Rate 94 87 Respiratory Rate 18 16 Blood Pressure 101/48 L 98/54 L Pulse Oximetry 90 L 88 L Oxygen Delivery Method Nasal Cannula Nasal Cannula Oxygen Flow Rate 2 BMI result Body Mass Index 19.4 Medications Administered Generic Name Dose Route Start Last Admin Trade Name Freq PRN Reason Stop Dose Admin Ampicillin Sodium/Sulbactam 100 mls @ 200 mls/hr 06/19/25 06:30 06/19/25 13:30 Sodium 3 gm/ Sodium Chloride IV Infused Q6H JOSE MANUEL Infusion Sodium Chloride 3 ml 06/19/25 08:00 06/19/25 07:33 0.9 % Sodium Chloride Flush 3 Ml Syringe IVFLUSH Not Given QSHIFT JOSE MANUEL Thiamine HCl 100 mg 06/19/25 00:40 06/19/25 10:09 Thiamine Hcl 100 Mg Tablet PO 100 mg DAILY JOSE MANUEL Administration Discontinued Medications Generic Name Dose Route Start Last Admin Trade Name David PRN Reason Stop Dose Admin Ceftriaxone Sodium 1 gm 06/18/25 23:57 06/19/25 00:10 Ceftriaxone Sodium 1 Gm Vial IVPUSH 06/18/25 23:58 1 gm ONCE ONE Administration Sodium Chloride 1,000 mls @ 999 mls/hr 06/18/25 21:00 06/18/25 23:27 Ns IV 06/18/25 22:00 Infused .Q1H1M JOSE MANUEL Infusion Doxycycline Hyclate 100 mg/ 250 mls @ 166.67 mls/hr 06/18/25 23:57 06/19/25 01:44 Sodium Chloride IV 06/19/25 01:26 Infused ONCE ONE Infusion Iohexol 75 ml 06/19/25 03:13 06/19/25 03:14 Iohexol 350 Mg/Ml 100 Ml Infus..Btl IV 06/19/25 03:14 75 ml ONCE ONE Administration Phenobarbital 15 mg 06/19/25 09:00 06/19/25 09:42 Phenobarbital 15 Mg Tablet PO 06/20/25 21:01 Not Given BID JOSE MANUEL Phenobarbital Sodium 221 mg 06/19/25 01:00 06/19/25 01:42 Phenobarbital Sodium 130 Mg/Ml Im Once IM 06/19/25 01:01 221 mg ONCE ONE Administration Phenobarbital Sodium 169 mg 06/19/25 04:00 06/19/25 07:38 Phenobarbital Sodium 130 Mg/Ml Vial Im Q3hx2 IM 06/19/25 07:01 169 mg Q3H JOSE MANUEL Administration Phenobarbital Sodium 169 mg 06/19/25 08:00 06/19/25 08:54 Phenobarbital Sodium 130 Mg/Ml Vial Im Q3hx2 IM 06/19/25 11:01 Not Given Q3H JOSE MANUEL Phenobarbital Sodium 169 mg 06/19/25 11:00 06/19/25 11:19 Phenobarbital Sodium 130 Mg/Ml Vial Im Q3hx2 IM 06/19/25 11:01 169 mg Q3H JOSE MANUEL Administration Medical Decision Making Medical Decision Making MDM Narrative: 9:12 PM 06/18/2025 (Ryan WALLACE): The patient is a 55-year-old male with a history of chronic alcoholism, cirrhosis, and CHF presenting to the ED for evaluation of alcohol intoxication as well as persistent chronic left lower extremity pain and swelling. The patient is clinically intoxicated, ability to provide a reliable HPI is questionable. The patient's exam reveals lower extremity swelling with no evidence of active cellulitis, bibasilar rales, no active abdominal tenderness. The patient's vital signs show borderline tachycardia and hypotension, patient is afebrile. The patient's tachycardia, hypotension, and hypoxia are likely secondary to chronic cirrhosis and not sepsis as there was no suspected infectious source, however given these findings we will obtain lactic acid, blood cultures, and evaluate for infectious sources. The patient will receive a single L of IV fluid hydration rather than 30 cc/kilos bolus due to his history of CHF/cirrhosis and fluid retention. As there is no concern for sepsis at this time we will forego antibiotics unless an infectious source is identified. 11:53 PM 06/18/2025 (Ryan WALLACE): The patient's ethanol level is 377. The patient's laboratory evaluation shows lactic acid of 2.4 with mild leukopenia, moderate anemia not significantly changed from baseline, no evidence of acute electrolyte abnormality or RAVI. The patient's chest x-ray shows a new retrocardiac opacity which is new since 05/24/2025, concerning for possible pneumonia in the appropriate clinical setting. At this time there is concern for infectious source, given the patient's laboratory evaluation, hypoxia, and findings on chest x-ray we will treat for suspected pneumonia with Rocephin and doxycycline and admit for pneumonia with increased oxygen requirement. Admission/Observation Consideration of admission/observation: Escalation of care including admission/observation considered Lab Data 06/19/25 05:09 06/19/25 05:09 Labs: Lab Results 06/18/25 06/18/25 Range/Units 21:19 23:49 WBC 3.1 L (4.8-10.8) X10*3/uL RBC 3.20 L (4.60-5.80) X10*6/uL Hgb 9.8 L (14.0-18.0) g/dl Hct 29.5 L (42.0-52.0) % MCV 92.2 (80.0-98.0) fL MCH 30.6 (27.0-33.0) pg MCHC 33.2 (31.0-36.0) g/dl RDW 17.4 H (11.0-16.0) % Plt Count 24 L D (160-400) X10*3/uL MPV Not Reportable Immature Gran % (Auto) 0.3 (0.0-0.4) % Neut % (Auto) 48.6 (45-73) % Lymph % (Auto) 33.8 (20-40) % [place] % (Auto) 13.1 H (2-11) % Eos % (Auto) 3.2 (0-4) % Baso % (Auto) 1.0 (0-2) % Lymph # (Auto) 1.1 L (1.2-4.9) X10*3/uL [place] # (Auto) 0.4 (0.1-1.2) X10*3/uL Eos # (Auto) 0.1 (0.0-0.4) X10*3/uL Baso # (Auto) 0.0 (0.0-0.2) X10*3/uL Abs Immat Gran (auto) 0.01 (0.00-0.03) X10*3/uL Absolute Neuts (auto) 1.5 L (2.0-8.3) x10*3/uL Absolute Nucleated RBC 0.000 (0.0-0.012) X10*3/uL Nucleated RBC % (auto) 0.0 (0.0-0.2) /100WBC Smear Tech's Comments VERIFIED Sodium 142 (135-145) mmol/L Potassium 3.5 (3.3-5.1) mmol/L Chloride 111 H (96-108) mmol/L Carbon Dioxide 21 L (22-29) mmol/L Anion Gap 14 (12-20) BUN 15 (9-16) mg/dL Creatinine 0.88 (0.5-1.4) mg/dL Estim Creat Clear Calc 72.1 Estimated GFR > 60 Random Glucose 95 (60-115) mg/dL Lactic Acid 2.4 H* (0.5-2.0) mmol/L Lactic Acid F/U @ 2Hr 1.8 (0.5-2.0) mmol/L Calcium 8.1 L (8.4-10.2) mg/dL Magnesium 1.6 (1.6-2.6) mg/dL Total Bilirubin 1.0 (0.0-1.0) mg/dL AST 99 H (5-37) U/L ALT 16 (0-40) U/L Alkaline Phosphatase 159 H (39-117) U/L Troponin I High Sens < 2.7 (<3.5-35.0) ng/L B-Natriuretic Peptide 74 (<100) pg/mL Total Protein 7.6 (6.5-8.0) g/dL Albumin 3.3 L (3.5-5.0) g/dL Ethyl Alcohol 377 H* mg/dL Radiology Impression Discussion of test interpretation with radiology: I have reviewed the radiologist's reading. Radiologist Impression: CLINICAL HISTORY: Hypoxia 2 view chest x-ray Comparison: CR - XR CHEST 1V - 06/08/25 17:07 EDT Findings: Retrocardiac opacity that can be appreciated on the lateral view, not present on 05/24/2025 chest radiograph. Also, increased interstitial lung markings compared to prior. No pleural effusions. Normal size heart. Osseous structures unremarkable. IMPRESSION: Retrocardiac opacity best seen on the lateral view, new since 05/24/2025. Possible pneumonia in the appropriate clinical setting. Increased prominence of interstitial lung markings that can be related to vascular congestion. This document has been electronically signed by: Oskar Tariq MD on 06/18/2025 23:47:36 Discharge Plan Discharge Clinical Impression: Hypoxia Pneumonia Qualifiers: Pneumonia type: due to unspecified organism Laterality: unspecified laterality Lung location: unspecified part of lung Qualified Code(s): J18.9 - Pneumonia, unspecified organism Patient Disposition: Admitted As Inpatient
--- NOTE | 2025-06-18 20:58 | ECG_ITS ---
Test Reason : SOB Blood Pressure : */* mmHG Vent. Rate : 86 BPM Atrial Rate : 86 BPM P-R Int : 156 ms QRS Dur : 92 ms QT Int : 398 ms P-R-T Axes : 42 19 30 degrees QTcB Int : 476 ms Normal sinus rhythm Normal ECG When compared with ECG of 05-Jun-2025 14:28, No significant change was found Referred By: David Galvez Electronically Signed By: EDITA HALE
--- OUTSIDE RECORDS SUMMARY | 2025-06-18 21:06 | XMS_ITS | Encounter Summary ---
Author Organization [facility] Address [address] [place] [address] [place] [address] Care Team Providers Care Health Management Consultant Name Role Phone Missy Milner RN Unavailable [phone] Conor Vidal Unavailable Encounter Details Date Type Department Care Team ([facility] st Contact Info) Description 06/09/2025 Results Follow-Up [facility] [address] [place] [address] Provider, Generic External Data XR Chest 1 View Social History Tobacco Use Types Packs/Day Years [...] on filedocumented in this encounter Care Teams Health Management Consultant Relationship Specialty Start Date End Date Missy Milner RN [address] [place] [address] Registered Nurse Family Medicine 04/23/25 Conor Vidal 04/23/25 documented as of this encounter
[2025-06-18 21:31] LABS: NRBC Abs Auto 0.000 X10*3/uL (0.0-0.012); NRBC Pct Auto 0.0 /100WBC (0.0-0.2); SCAN SMEAR FLAG 1
[2025-06-18 21:33] LABS: Hematocrit 29.5 % (42.0-52.0); Hemoglobin 9.8 g/dl (14.0-18.0); Imm Gran Abs Auto 0.01 X10*3/uL (0.00-0.03); Imm Gran Pct Auto 0.3 % (0.0-0.4); Lymphocytes Absolute Auto 1.1 X10*3/uL (1.2-4.9); MANUAL DIFF FLAG SCAN; Mean Corpuscular HGB Conc 33.2 g/dl (31.0-36.0); Mean Corpuscular Hemoglobin 30.6 pg (27.0-33.0); Mean Corpuscular Volume 92.2 fL (80.0-98.0); PLT CLUMP 1; Red Blood Count 3.20 X10*6/uL (4.60-5.80)
[2025-06-18 21:48] LABS: Alanine Aminotransferase 16 U/L (0-40); Albumin Level 3.3 g/dL (3.5-5.0); Alkaline Phosphatase 159 U/L (39-117); Anion Gap 14 (12-20); Aspartate Amino Transferase 99 U/L (5-37); Blood Urea Nitrogen 15 mg/dL (9-16); Calcium 8.1 mg/dL (8.4-10.2); Carbon Dioxide 21 mmol/L (22-29); Chloride 111 mmol/L (96-108); Creatinine Clr Calc Pharmacy 72.1; Estimated Glomerular Filt Rate > 60; Magnesium 1.6 mg/dL (1.6-2.6); Potassium 3.5 mmol/L (3.3-5.1); Sodium 142 mmol/L (135-145); Total Protein 7.6 g/dL (6.5-8.0)
[2025-06-18 21:56] LABS: Troponin-I High Sensitivity < 2.7 ng/L (<3.5-35.0)
[2025-06-18 21:58] LABS: PLT ABN DIST 1; White Blood Count 3.1 X10*3/uL (4.8-10.8)
[2025-06-18 21:59] LABS: Platelet Count 24 X10*3/uL (160-400)
[2025-06-18 22:40] LABS: B Type Natriuretic Peptide 74 pg/mL (<100)
[2025-06-18 23:27] LABS: Reflex Lactate? Lactic Acid Added
[2025-06-19] VITALS (8 sets, daily range): BP systolic 98–117; BP diastolic 41–62; PULSE 71–87; RESP 14–19; TEMP 36.7–37; O2SAT 88–96
--- NOTE | 2025-06-19 00:13 | PC.NURSE ---
pt medicated per JAN, pt SPO2 dropped to 88% while sleeping, O2 increased to 3L pt currently at 93%
[2025-06-19 00:16] LABS: ~Lactic Acid-LAB USE ONLY 1.8 mmol/L (0.5-2.0)
--- NOTE | 2025-06-19 00:17 | P.HPHOSP_ITS ---
History of Present Illness Date of Service: 06/19/25 Chief Complaint: Alcohol intoxication This is a 55-year-old male with pertinent history of alcohol use disorder with alcoholic cirrhosis, gastroesophageal reflux disease, congestive heart failure with preserved ejection fraction who presents to the emergency department for evaluation after alcohol intoxication. Patient is intoxicated and does not know how he ended up in the ER. Admits to drinking alcohol on the day of presentation. Does endorse productive cough. Denies dyspnea. Unclear if he is compliant with home medications. Patient is a poor historian. In the emergency department, patient was satting 80% on room air. Imaging with right-sided pneumonia. Patient was given empiric IV antibiotics. Denies abdominal pain, hematemesis, nausea, vomiting, fever, chills, chest pain, palpitations, changes in urinary or bowel habits. Review of Systems 2 Review of Systems: Yes Unobtainable due to mental status PMFSH Medical History CHF (congestive heart failure) Alcohol use disorder Alcohol abuse Acute hypoxemic respiratory failure Anemia Pneumonia Alcohol withdrawal syndrome Pancytopenia Alcohol abuse Thrombocytopenia Esophageal varices Acute on chronic anemia Alcoholic liver disease Aspiration pneumonia Thrombocytopenia Malnutrition CHF (congestive heart failure) Anemia Hypomagnesemia Cirrhosis Thrombocytopenia Acute on chronic anemia CHF (congestive heart failure) Anemia Alcohol abuse Surgical History No history of previous surgery Social History Household Members: None Household Members Other:: homeless Housing: Homeless Housing Other:: Homeless [facility] Do you presently have visiting nurse or other home services: No Unable to assess alcohol history related to: Refusing to respond Alcohol intake: current Alcohol intake frequency: 3 or more drinks per day Alcohol type: beer and hard liquor Comment: pt refuse to have staff remain in BR Patient Tobacco Use Status: Former Tobacco user Tobacco use type: Cigarette Second Hand Smoke Exposure: No Advance Directives: Yes Advance Directives on File: Yes Advance Directives Date on File: 07/13/23 service: No Meds Allergies Allergy/AdvReac Type Severity Reaction Status Date / Time No Known Allergies (No Known Allergy Verified 06/18/25 20:25 Allergies*) Active Medications: Current Medications Doxycycline Hyclate 100 mg/ (Sodium Chloride) 250 mls @ 166.67 mls/hr IV ONCE ONE Stop: 06/19/25 01:26 Last Admin: 06/19/25 00:10 Dose: 166.67 mls/hr Home Medications ?Medication ?Instructions ?Recorded ?Confirmed ?Last Taken ?Type No Known Home Meds 05/25/25 05/25/25 Un known History Physical Exam 2 Vital Signs and Narrative: Vital Signs: Last Vital Signs Temp 98.2 F 06/19/25 00:00 Pulse 87 06/19/25 00:00 Resp 16 06/19/25 00:00 BP 98/54 L 06/19/25 00:00 Pulse Ox 93 06/19/25 00:16 O2 Del Method Nasal Cannula 06/19/25 00:16 O2 Flow Rate 3 06/19/25 00:16 Oxygen Flow Rate 2 06/18/25 20:23 BMI result Body Mass Index 19.4 Const: Other: Middle-aged male lying in bed in mild distress on supplemental oxygen Neck supple Regular rate and rhythm, S1-S2 heard Bilateral crackles present Abdomen soft nontender, no guarding, no rigidity Patient is awake, alert and oriented x2 ; no focal motor deficit Psych: Normal mood Results Labs 06/19/25 05:09 06/19/25 05:09 Labs: Laboratory Results - last 24 hr 06/18/25 06/18/25 21:19 23:49 MCV 92.2 MCH 30.6 MCHC 33.2 RDW 17.4 H Plt Count 24 L D MPV Not Reportable Immature Gran % (Auto) 0.3 Neut % (Auto) 48.6 Lymph % (Auto) 33.8 [place] % (Auto) 13.1 H Eos % (Auto) 3.2 Baso % (Auto) 1.0 Lymph # (Auto) 1.1 L [place] # (Auto) 0.4 Eos # (Auto) 0.1 Baso # (Auto) 0.0 Abs Immat Gran (auto) 0.01 Absolute Neuts (auto) 1.5 L Absolute Nucleated RBC 0.000 Nucleated RBC % (auto) 0.0 Smear Tech's Comments VERIFIED Anion Gap 14 Estim Creat Clear Calc 72.1 Estimated GFR > 60 Random Glucose 95 Lactic Acid 2.4 H* Lactic Acid F/U @ 2Hr 1.8 Calcium 8.1 L Magnesium 1.6 Total Bilirubin 1.0 AST 99 H ALT 16 Alkaline Phosphatase 159 H B-Natriuretic Peptide 74 Total Protein 7.6 Albumin 3.3 L Ethyl Alcohol 377 H* Assessment and Plan (1) Hypoxia: Status: Acute (2) Pneumonia: Qualifiers: Laterality: unspecified laterality Lung location: unspecified part of lung Pneumonia type: due to unspecified organism Qualified Code(s): J18.9 - Pneumonia, unspecified organism Status: Acute Plan This is a 55-year-old male with pertinent history of alcohol use disorder with alcoholic cirrhosis, gastroesophageal reflux disease, congestive heart failure with preserved ejection fraction who presents to the emergency department for evaluation after alcohol intoxication. #. Acute hypoxemic respiratory failure due to pneumonia with concerns for aspiration: Will admit patient with supplemental oxygen. Initiating empiric IV antibiotics. Monitor oxygen saturation and wean as tolerated. NPO pending swallow eval diet #. Acute toxic encephalopathy due to alcohol use leading to above #. Alcohol use disorder: Initiated on phenobarb protocol in the ER due to concerns for withdrawal. Also initiated thiamine. Consulted Addiction Team #. Acute lactic acidosis due to alcohol use #. 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 Defer prophylactic Lovenox #. Gastroesophageal reflux disease: Previously on PPI but not compliant Med rec pending DVT prophylaxis: Mechanical Full code Admit as inpatient and will require two night minimum hospital stay for supplemental oxygen, IV antibiotics (as above), which is not possible in a lesser acute setting. Quality Stroke Does the patient have a stroke diagnosis?: No VTE Prior VTE?: No VTE Risk Level:: Medical - moderate - high VTE Device Contraindication: N/A - Device Ordered VTE Drug Contraindication: Treatment Not Indicated
[2025-06-19] MEDS: PHENobarbitaL sodium 130 MG/ML IM ONCE 221 MG IM (01:42)
--- NOTE | 2025-06-19 01:45 | PC.NURSE ---
pt medicated perNatalia
[2025-06-19] MEDS: iohexoL 350 MG/ML 100 ML INFUS..BTL 75 ML IV (03:14)
[2025-06-19 05:16] LABS: Hematocrit 28.1 % (42.0-52.0); Hemoglobin 9.2 g/dl (14.0-18.0); Mean Corpuscular HGB Conc 32.7 g/dl (31.0-36.0); Mean Corpuscular Hemoglobin 30.3 pg (27.0-33.0); Mean Corpuscular Volume 92.4 fL (80.0-98.0); NRBC Abs Auto 0.000 X10*3/uL (0.0-0.012); NRBC Pct Auto 0.0 /100WBC (0.0-0.2); Red Blood Count 3.04 X10*6/uL (4.60-5.80)
[2025-06-19 05:36] LABS: Platelet Count 26 X10*3/uL (160-400); White Blood Count 2.1 X10*3/uL (4.8-10.8)
[2025-06-19 05:38] LABS: Anion Gap 12 (12-20); Blood Urea Nitrogen 11 mg/dL (9-16); Calcium 7.4 mg/dL (8.4-10.2); Carbon Dioxide 17 mmol/L (22-29); Chloride 116 mmol/L (96-108); Creatinine Clr Calc Pharmacy 100.7; Estimated Glomerular Filt Rate > 60; Potassium 3.4 mmol/L (3.3-5.1); Sodium 142 mmol/L (135-145)
[2025-06-19] MEDS: PHENobarbitaL sodium 130 MG/ML VIAL IM Q3Hx2 169 MG IM ×2 (07:38→11:19)
[2025-06-19 09:12] LABS: Procalcitonin 0.11 ng/mL
--- NOTE | 2025-06-19 10:29 | MHC.CM.PN ---
Pt. sound asleep, CM reviewed record, he goes to [facility] for primary care. Pt. is homeless, he does not use DME. DCP: TBWEN Ruelas to follow for DC needs.
--- NOTE | 2025-06-19 10:30 | PHA.MEDREC ---
Addendum entered by Doris Rose RPh 06/19/25 13:31: MED REC REVIEWED BY [facility] Original Note: Pharmacy Consult ? Medication Reconciliation Pharmacy has completed the medication reconciliation. Spoke with pt and he confirmed he is not taking any scheduled medications at this time and is only taking Tylenol 325mg as needed for migraine/headaches.
[2025-06-19 10:32] LABS: MRSA Nasal PCR NEGATIVE (Negative); SA Nasal PCR NEGATIVE (Negative)
[2025-06-19 12:36] LABS: Chlamydia pneumoniae PCR Not Detected (Not Detect.); Coronavirus 229E PCR Not Detected (Not Detect.); Coronavirus HKU1 PCR Not Detected (Not Detect.); Coronavirus NL63 PCR Not Detected (Not Detect.); Coronavirus OC43 PCR Not Detected (Not Detect.); RSV PCR Not Detected (Not Detect.); Rhino/Enterovirus PCR Not Detected (Not Detect.)
[2025-06-19 12:44] LABS: Influenza A H1 PCR Not Detected (Not Detect.); Influenza A H1-2009 PCR Not Detected (Not Detect.); Influenza A H3 PCR Not Detected (Not Detect.); SARS-CoV-2 PCR Not Detected (Not Detect.)
--- NOTE | 2025-06-19 13:10 | HO.PM.IMPN ---
Subjective Subjective Date of Service: 06/19/25 Interval History: somnolent but arousable, coughing, poor historian but perhaps still intoxicated Review of Systems Review of Systems: Yes all other systems are reviewed and are negative Physical Exam Vital Signs: Vital Signs: Last Vital Signs Temp 98.1 F 06/19/25 07:23 Pulse 73 06/19/25 11:18 Resp 18 06/19/25 11:18 BP 103/50 L 06/19/25 11:18 Pulse Ox 92 06/19/25 11:18 O2 Del Method Nasal Cannula 06/19/25 11:18 O2 Flow Rate 3 06/19/25 11:18 Oxygen Flow Rate 2 06/18/25 20:23 BMI result Body Mass Index 19.4 Gen: in no acute distress HEENT: sclera anicteric, moist mucus membranes Neck: supple Lungs: bilateral inspiratory crackles Heart: regular rate and rhythm, no murmurs Abd: soft, non-tender, non-distended Ext: no edema Skin: warm/well-perfused Neuro: alert and oriented x3, no focal findings Psych: restricted affect Objective Data Active Medications Acetaminophen (Acetaminophen 325 Mg Tablet) 650 mg PO Q6H PRN PRN Reason: Pain, Mild 1-3,fever,headache Calcium Carbonate (Calcium Carbonate 750 Mg Tab.Chew) 750 mg PO Q4H PRN PRN Reason: Heartburn Ampicillin Sodium/Sulbactam (Sodium 3 gm/ Sodium Chloride) 100 mls @ 200 mls/hr IV Q6H [facility] Last Admin: 06/19/25 12:11 Dose: 200 mls/hr Documented By: MARTY Magnesium Hydroxide (Milk Of Magnesia 30 Ml Oral.Susp) 30 ml PO DAILY PRN PRN Reason: Constipation Melatonin (Melatonin 3 Mg Tablet) 6 mg PO BEDTIME PRN PRN Reason: Insomnia Ondansetron HCl (Ondansetron Hcl 4 Mg/2 Ml Vial) 4 mg IVPUSH Q8H PRN PRN Reason: Nausea and Vomiting Pharmacy Consult (Consult Rx Etoh Phenob Im/Po) 1 each MISCELLANE ONCE PRN; Protocol PRN Reason: Consult order Phenobarbital (Phenobarbital 15 Mg Tablet) 45 mg PO BID [facility] Stop: 06/21/25 09:01 Phenobarbital (Phenobarbital 15 Mg Tablet) 15 mg PO BID [facility] Stop: 06/23/25 09:01 Phenobarbital (Phenobarbital 15 Mg Tablet) 15 mg PO DAILY [facility] Stop: 06/25/25 09:01 Sodium Chloride (0.9 % Sodium Chloride Flush 3 Ml Syringe) 3 ml IVFLUSH QSHIFT [facility] Last Admin: 06/19/25 07:33 Dose: Not Given Documented By: MARTY Non-Admin Reason: IV Running Thiamine HCl (Thiamine Hcl 100 Mg Tablet) 100 mg PO DAILY [facility] Last Admin: 06/19/25 10:09 Dose: 100 mg Documented By: MARTY Labs 06/19/25 05:09 06/19/25 05:09 Labs: Laboratory Results - last 24 hr 06/18/25 06/18/25 06/19/25 21:19 23:49 05:09 MCV 92.2 92.4 MCH 30.6 30.3 MCHC 33.2 32.7 RDW 17.4 H 17.4 H Plt Count 24 L D 26 L MPV Not Reportable 12.3 Immature Gran % (Auto) 0.3 Neut % (Auto) 48.6 Lymph % (Auto) 33.8 [place] % (Auto) 13.1 H Eos % (Auto) 3.2 Baso % (Auto) 1.0 Lymph # (Auto) 1.1 L [place] # (Auto) 0.4 Eos # (Auto) 0.1 Baso # (Auto) 0.0 Abs Immat Gran (auto) 0.01 Absolute Neuts (auto) 1.5 L Absolute Nucleated RBC 0.000 0.000 Nucleated RBC % (auto) 0.0 0.0 Smear Tech's Comments VERIFIED Smear Path Review Cancelled Anion Gap 14 12 Estim Creat Clear Calc 72.1 100.7 Estimated GFR > 60 > 60 Random Glucose 95 87 Lactic Acid 2.4 H* Lactic Acid F/U @ 2Hr 1.8 Calcium 8.1 L 7.4 L D Magnesium 1.6 Total Bilirubin 1.0 AST 99 H ALT 16 Alkaline Phosphatase 159 H B-Natriuretic Peptide 74 Total Protein 7.6 Albumin 3.3 L Procalcitonin 0.11 Nasal Screen MRSA (PCR) Nasal S. aureus Screen Nasal MRSA/S.aureus Interp Ethyl Alcohol 377 H* Respiratory Panel Muhammad Adenovirus (Rapid PCR) B.pert (TEM-PCR) B.parapertussis DNA PCR C. pneumoniae DNA (PCR) Coronavirus OC43 (PCR) Coronavirus HKU1 (PCR) Coronavirus 229E (PCR) Coronavirus NL63 (PCR) Human Metapneumovir PCR Influenza A (RT-PCR) Influenza A (H1) PCR Influ A () PCR Influenza A (H3) PCR Influenza B (RT-PCR) M. pneumoniae (PCR) Parainfluenza 1 (PCR) Parainfluenza 2 (PCR) Parainfluenza 3 (PCR) Parainfluenza 4 (PCR) RSV (PCR) Entero/Rhino (PCR) SARS-CoV-2 RNA (RT-PCR) 06/19/25 09:09 MCV MCH MCHC RDW Plt Count MPV Immature Gran % (Auto) Neut % (Auto) Lymph % (Auto) [place] % (Auto) Eos % (Auto) Baso % (Auto) Lymph # (Auto) [place] # (Auto) Eos # (Auto) Baso # (Auto) Abs Immat Gran (auto) Absolute Neuts (auto) Absolute Nucleated RBC Nucleated RBC % (auto) Smear Tech's Comments Smear Path Review Anion Gap Estim Creat Clear Calc Estimated GFR Random Glucose Lactic Acid Lactic Acid F/U @ 2Hr Calcium Magnesium Total Bilirubin AST ALT Alkaline Phosphatase B-Natriuretic Peptide Total Protein Albumin Procalcitonin Nasal Screen MRSA (PCR) NEGATIVE Nasal S. aureus Screen NEGATIVE Nasal MRSA/S.aureus Interp SEE NOTE Ethyl Alcohol Respiratory Panel Muhammad See Note Adenovirus (Rapid PCR) Not Detected B.pert (TEM-PCR) Not Detected B.parapertussis DNA PCR Not Detected C. pneumoniae DNA (PCR) Not Detected Coronavirus OC43 (PCR) Not Detected Coronavirus HKU1 (PCR) Not Detected Coronavirus 229E (PCR) Not Detected Coronavirus NL63 (PCR) Not Detected Human Metapneumovir PCR Not Detected Influenza A (RT-PCR) Not Detected Influenza A (H1) PCR Not Detected Influ A () PCR Not Detected Influenza A (H3) PCR Not Detected Influenza B (RT-PCR) Not Detected M. pneumoniae (PCR) Not Detected Parainfluenza 1 (PCR) Not Detected Parainfluenza 2 (PCR) Not Detected Parainfluenza 3 (PCR) Not Detected Parainfluenza 4 (PCR) Not Detected RSV (PCR) Not Detected Entero/Rhino (PCR) Not Detected SARS-CoV-2 RNA (RT-PCR) Not Detected Assessment and Plan (1) Pneumonia: Status: Acute (2) Hypoxia: Status: Acute Assessment and Plan: d1 for 55yo M with AUD and cirrhosis, HFpEF, GERD presenting with EtOH intoxication and found to be hypoxic due to multifocal PNA acute hypoxic respiratory failure due to multifocal PNA - 06/19- ampicillin-sulbactam, follow BCx, trend PCT, RPP + MRSA swabs negative, urinary antigens for Legionella and pneumococcus pending - 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 - supplemental O2, wean as tolerated acute toxic encephalopathy - due to EtOH AUD with high risk for withdrawal - phenobarbital taper, thiamine, Addiction Medicine consultation acute lactic acidosis - due to cirrhosis EtOH cirrhosis, pancytopenia, hypersplenism - will need to establish GI care VTE ppx - SCDs, no heparin given severe thrombocytopenia dispo - TBD In my clinical judgment, the patient requires continued inpatient hospitalization for the following reasons: hypoxia, IV ABX Quality Stroke Does the patient have a stroke diagnosis?: No VTE Prior VTE?: No VTE Risk Level:: Medical - moderate - high VTE Device Contraindication: N/A - Device Ordered VTE Drug Contraindication: Treatment Not Indicated
--- NOTE | 2025-06-19 22:20 | PC.NURSE ---
pt ambulated with cane to bathroom for BM. assist back into bed
[2025-06-20] VITALS (14 sets, daily range): BP systolic 100–153; BP diastolic 50–86; PULSE 64–92; RESP 13–20; TEMP 36.6–37.6; O2SAT 91–96; BMI 19.4
[2025-06-20] MEDS: 0.9 % Sodium Chloride Flush 3 ML SYRINGE IVFLUSH ×3 (00:14→20:26)
[2025-06-20 03:43] LABS: Hematocrit 29.7 % (42.0-52.0); Hemoglobin 9.7 g/dl (14.0-18.0); Mean Corpuscular HGB Conc 32.7 g/dl (31.0-36.0); Mean Corpuscular Hemoglobin 30.6 pg (27.0-33.0); Mean Corpuscular Volume 93.7 fL (80.0-98.0); NRBC Abs Auto 0.000 X10*3/uL (0.0-0.012); NRBC Pct Auto 0.0 /100WBC (0.0-0.2); Red Blood Count 3.17 X10*6/uL (4.60-5.80); White Blood Count 2.5 X10*3/uL (4.8-10.8)
[2025-06-20 03:44] LABS: Platelet Count 27 X10*3/uL (160-400)
[2025-06-20 03:48] LABS: INTERNATIONAL NORM RATIO 1.6 (0.9-1.1); Prothrombin Time 18.8 SEC (10.9-12.4)
[2025-06-20 04:07] LABS: Alanine Aminotransferase 10 U/L (0-40); Albumin Level 2.7 g/dL (3.5-5.0); Alkaline Phosphatase 139 U/L (39-117); Anion Gap 12 (12-20); Aspartate Amino Transferase 74 U/L (5-37); Blood Urea Nitrogen 9 mg/dL (9-16); Calcium 7.6 mg/dL (8.4-10.2); Carbon Dioxide 21 mmol/L (22-29); Chloride 111 mmol/L (96-108); Creatinine Clr Calc Pharmacy 107.6; Estimated Glomerular Filt Rate > 60; Magnesium 1.1 mg/dL (1.6-2.6); Potassium 3.1 mmol/L (3.3-5.1); Sodium 141 mmol/L (135-145); Total Protein 6.5 g/dL (6.5-8.0)
[2025-06-20] MEDS: Magnesium Sulfate/H2O 2 GM/50 ML PIGGYBACK IV ×2 (04:34→10:57)
[2025-06-20 08:27] LABS: HBS Num1 0.00 mIU/mL (0-7.99); HBc Num1 0.24 S/CO (0.00-0.79); HBsAGNum1 0.43 S/CO (0.00-0.99); HIV Num 1 0.06 S/CO (0.00-0.99); Hepatitis B Surface Antigen Negative (Negative); ~HepC Num1 0.27 S/CO (0.00-0.79); ~Hepatitis B Surface Antibody NONREACTIVE (Nonreactive); ~Hepatitis C Antibody Nonreactive (Nonreactive)
[2025-06-20] MEDS: Potassium Chloride ER 20 MEQ TAB.ER.PRT 40 MEQ PO (09:20)
[2025-06-20] MEDS: Phytonadione (Vit K1) Oral 10 MG/ML AMPUL PO (09:58)
--- NOTE | 2025-06-20 10:46 | HO.PM.IMPN ---
Subjective Subjective Date of Service: 06/20/25 Interval History: c/o cough; poor historian Review of Systems Review of Systems: Yes all other systems are reviewed and are negative Physical Exam Vital Signs: Vital Signs: Last Vital Signs Temp 98.1 F 06/20/25 07:14 Pulse 68 06/20/25 10:02 Resp 13 06/20/25 10:02 BP 114/60 06/20/25 10:02 Pulse Ox 94 06/20/25 10:02 O2 Del Method Nasal Cannula 06/20/25 10:02 O2 Flow Rate 2 06/20/25 10:02 Oxygen Flow Rate 2 06/18/25 20:23 BMI result Body Mass Index 19.4 Gen: in no acute distress HEENT: sclera anicteric, moist mucus membranes Neck: supple Lungs: bilateral inspiratory crackles Heart: regular rate and rhythm, no murmurs Abd: soft, non-tender, non-distended Ext: no edema Skin: warm/well-perfused Neuro: alert and oriented x3, no focal findings Psych: restricted affect Objective Data Active Medications Acetaminophen (Acetaminophen 325 Mg Tablet) 650 mg PO Q6H PRN PRN Reason: Pain, Mild 1-3,fever,headache Last Admin: 06/20/25 00:33 Dose: 650 mg Documented By: FREDERIC Calcium Carbonate (Calcium Carbonate 750 Mg Tab.Chew) 750 mg PO Q4H PRN PRN Reason: Heartburn Ampicillin Sodium/Sulbactam (Sodium 3 gm/ Sodium Chloride) 100 mls @ 200 mls/hr IV Q6H [facility] Last Infusion: 06/20/25 07:11 Dose: Infused Documented By: BOAZ Magnesium Hydroxide (Milk Of Magnesia 30 Ml Oral.Susp) 30 ml PO DAILY PRN PRN Reason: Constipation Magnesium Oxide (Magnesium Oxide 400 Mg Tablet) 800 mg PO BIDPC [facility] Last Admin: 06/20/25 09:22 Dose: 800 mg Documented By: MADI Melatonin (Melatonin 3 Mg Tablet) 6 mg PO BEDTIME PRN PRN Reason: Insomnia Ondansetron HCl (Ondansetron Hcl 4 Mg/2 Ml Vial) 4 mg IVPUSH Q8H PRN PRN Reason: Nausea and Vomiting Pharmacy Consult (Consult Rx Etoh Phenob Im/Po) 1 each MISCELLANE ONCE PRN; Protocol PRN Reason: Consult order Phenobarbital (Phenobarbital 15 Mg Tablet) 45 mg PO BID [facility] Stop: 06/21/25 09:01 Last Admin: 06/20/25 09:21 Dose: 45 mg Documented By: MADI Phenobarbital (Phenobarbital 15 Mg Tablet) 15 mg PO BID [facility] Stop: 06/23/25 09:01 Phenobarbital (Phenobarbital 15 Mg Tablet) 15 mg PO DAILY [facility] Stop: 06/25/25 09:01 Sodium Chloride (0.9 % Sodium Chloride Flush 3 Ml Syringe) 3 ml IVFLUSH QSHIFT [facility] Last Admin: 06/20/25 07:11 Dose: Not Given Documented By: BOAZ Non-Admin Reason: IV Running Thiamine HCl (Thiamine Hcl 100 Mg Tablet) 100 mg PO DAILY [facility] Last Admin: 06/20/25 09:21 Dose: 100 mg Documented By: MADI Labs 06/20/25 03:26 06/20/25 03:26 Labs: Laboratory Results - last 24 hr 06/19/25 06/20/25 09:09 03:26 MCV 93.7 MCH 30.6 MCHC 32.7 RDW 16.8 H Plt Count 27 L MPV 12.6 H Absolute Nucleated RBC 0.000 Nucleated RBC % (auto) 0.0 PT 18.8 H D INR 1.6 H Anion Gap 12 Estim Creat Clear Calc 107.6 Estimated GFR > 60 Random Glucose 97 Calcium 7.6 L Magnesium 1.1 L* Total Bilirubin 2.0 H AST 74 H ALT 10 Alkaline Phosphatase 139 H Total Protein 6.5 Albumin 2.7 L Respiratory Panel Muhammad See Note Adenovirus (Rapid PCR) Not Detected B.pert (TEM-PCR) Not Detected B.parapertussis DNA PCR Not Detected C. pneumoniae DNA (PCR) Not Detected Coronavirus OC43 (PCR) Not Detected Coronavirus HKU1 (PCR) Not Detected Coronavirus 229E (PCR) Not Detected Coronavirus NL63 (PCR) Not Detected Hep Bs Antigen Negative Hep Bs Antibody NONREACTIVE Hep B Core Total Ab Nonreactive Hepatitis C Ab (EIA) Nonreactive HIV 1&2 Ab/P24 Ag 4thGn Nonreactive Human Metapneumovir PCR Not Detected Influenza A (RT-PCR) Not Detected Influenza A (H1) PCR Not Detected Influ A (H1/09) PCR Not Detected Influenza A (H3) PCR Not Detected Influenza B (RT-PCR) Not Detected M. pneumoniae (PCR) Not Detected Parainfluenza 1 (PCR) Not Detected Parainfluenza 2 (PCR) Not Detected Parainfluenza 3 (PCR) Not Detected Parainfluenza 4 (PCR) Not Detected RSV (PCR) Not Detected Entero/Rhino (PCR) Not Detected SARS-CoV-2 RNA (RT-PCR) Not Detected Microbiology Microbiology Results: Microbiology 06/18/25 21:19 Blood Culture - Preliminary Blood - Venous No growth after 24 hours. 06/18/25 21:19 Blood Culture - Preliminary Blood - Venous No growth after 24 hours. 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 - supplemental O2, wean as tolerated hypoMg - replete IV/PO, recheck level tomorrow hypoK - replete PO, recheck level tomorrow acute toxic encephalopathy - due to EtOH AUD with high risk for withdrawal - phenobarbital taper, thiamine, Addiction Medicine consultation acute lactic acidosis - due to cirrhosis EtOH cirrhosis, pancytopenia, hypersplenism, coagulopathy - will need to establish GI care - give vit K, recheck INR tomorrow - monitor CBC daily VTE ppx - SCDs, no heparin given severe thrombocytopenia dispo - TBD In my clinical judgment, the patient requires continued inpatient hospitalization for the following reasons: hypoxia, IV ABX Total time managing care of this patient today: 35 minutes. Quality Stroke Does the patient have a stroke diagnosis?: No VTE Prior VTE?: No VTE Risk Level:: Medical - moderate - high VTE Device Contraindication: N/A - Device Ordered VTE Drug Contraindication: Treatment Not Indicated
--- NOTE | 2025-06-20 11:06 | HO.ADDICT_ITS ---
History of Present Illness Date of Service: 06/20/2025 Chief Complaint: dyspnea Reason for Consult: AUD HPI Narrative: Patient is a 55 year old male with long standing history of AUD, liver cirrhosis and numerous medical admissions. Currently medically admitted with hypoxia secondary to pneumonia. 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 He is awake, alert, pleasant and engaged in interview. He believes he is in the hospital because of his ankle, stating that it has been hurting when he walks. With regards to alcohol use--he reports that he continues to drink the same amount every day --1/2 pint of vodka and if can buy them, 2-3 beers. 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 Gets food at [employer] every day if he is hungry. Raised concern that his body may be telling him it needs a break from the drinking, to which patient replied maybe , then went on to say that he thinks he has a gallon of vodka hidden somewhere. Denies any withdrawal sx. Appears comfortable, watching TV, 02 via [place]. Labs reviewed--K 3.1 Mg 1.1 (both repleted) pancytopenia Past Psychiatric History: hx of 3 prior detox admissions for alcohol use. does not have outpatient psychiatric providers Pt reports hx of one SI attempt via overdose on pills at the age of 17. Medical Evaluation Reviewed: Yes Review of Systems Constitutional: Reports as per HPI and Reports no additional constitutional complaints Diagnostics Vital Signs (24Hr): Vital Signs - 24 hr 06/19/25 11:18 06/19/25 15:25 06/19/25 18:34 Temperature 98.6 F 98.6 F Pulse Rate 73 71 71 Respiratory Rate 18 16 14 Blood Pressure 103/50 L 117/58 L 112/57 L Pulse Oximetry 92 94 94 Oxygen Delivery Method Nasal Cannula Nasal Cannula Room Air Oxygen Flow Rate 3 3 06/19/25 22:28 06/20/25 00:25 06/20/25 01:30 Temperature 98.6 F 99.4 F 99.3 F Pulse Rate 73 80 79 Respiratory Rate 19 16 16 Blood Pressure 115/62 105/60 115/53 L Pulse Oximetry 96 94 93 Oxygen Delivery Method Nasal Cannula Nasal Cannula Nasal Cannula Oxygen Flow Rate 3 3 3 06/20/25 04:33 06/20/25 06:09 06/20/25 06:36 Temperature 99.0 F 98.6 F Pulse Rate 70 72 64 Respiratory Rate 16 18 17 Blood Pressure 103/50 L 100/58 L 104/50 L Pulse Oximetry 91 L 94 94 Oxygen Delivery Method Nasal Cannula Nasal Cannula Nasal Cannula Oxygen Flow Rate 3 3 3 06/20/25 07:14 06/20/25 09:26 06/20/25 10:02 Temperature 98.1 F Pulse Rate 73 67 68 Respiratory Rate 17 15 13 Blood Pressure 123/71 114/60 114/60 Pulse Oximetry 93 96 94 Oxygen Delivery Method Nasal Cannula Nasal Cannula Nasal Cannula Oxygen Flow Rate 3 3 2 BMI result Body Mass Index 19.4 Labs 06/20/25 03:26 06/20/25 03:26 Labs: Laboratory Results - last 48 hr 06/18/25 06/18/25 06/19/25 21:19 23:49 05:09 WBC 3.1 L 2.1 L RBC 3.20 L 3.04 L Hgb 9.8 L 9.2 L Hct 29.5 L 28.1 L MCV 92.2 92.4 MCH 30.6 30.3 MCHC 33.2 32.7 RDW 17.4 H 17.4 H Plt Count 24 L D 26 L MPV Not Reportable 12.3 Immature Gran % (Auto) 0.3 Neut % (Auto) 48.6 Lymph % (Auto) 33.8 [place] % (Auto) 13.1 H Eos % (Auto) 3.2 Baso % (Auto) 1.0 Lymph # (Auto) 1.1 L [place] # (Auto) 0.4 Eos # (Auto) 0.1 Baso # (Auto) 0.0 Abs Immat Gran (auto) 0.01 Absolute Neuts (auto) 1.5 L Absolute Nucleated RBC 0.000 0.000 Nucleated RBC % (auto) 0.0 0.0 Smear Tech's Comments VERIFIED Smear Path Review Cancelled PT INR Sodium 142 142 Potassium 3.5 3.4 Chloride 111 H 116 H Carbon Dioxide 21 L 17 L Anion Gap 14 12 BUN 15 11 Creatinine 0.88 0.63 Estim Creat Clear Calc 72.1 100.7 Estimated GFR > 60 > 60 Random Glucose 95 87 Lactic Acid 2.4 H* Lactic Acid F/U @ 2Hr 1.8 Calcium 8.1 L 7.4 L D Magnesium 1.6 Total Bilirubin 1.0 AST 99 H ALT 16 Alkaline Phosphatase 159 H Troponin I High Sens < 2.7 B-Natriuretic Peptide 74 Total Protein 7.6 Albumin 3.3 L Procalcitonin 0.11 Nasal Screen MRSA (PCR) Nasal S. aureus Screen Nasal MRSA/S.aureus Interp Ethyl Alcohol 377 H* Respiratory Panel Muhammad Adenovirus (Rapid PCR) B.pert (TEM-PCR) B.parapertussis DNA PCR C. pneumoniae DNA (PCR) Coronavirus OC43 (PCR) Coronavirus HKU1 (PCR) Coronavirus 229E (PCR) Coronavirus NL63 (PCR) Hep Bs Antigen Hep Bs Antibody Hep B Core Total Ab Hepatitis C Ab (EIA) HIV 1&2 Ab/P24 Ag 4thGn Human Metapneumovir PCR Influenza A (RT-PCR) Influenza A (H1) PCR Influ A (H1/09) PCR Influenza A (H3) PCR Influenza B (RT-PCR) M. pneumoniae (PCR) Parainfluenza 1 (PCR) Parainfluenza 2 (PCR) Parainfluenza 3 (PCR) Parainfluenza 4 (PCR) RSV (PCR) Entero/Rhino (PCR) SARS-CoV-2 RNA (RT-PCR) 06/19/25 06/20/25 09:09 03:26 WBC 2.5 L RBC 3.17 L Hgb 9.7 L Hct 29.7 L MCV 93.7 MCH 30.6 MCHC 32.7 RDW 16.8 H Plt Count 27 L MPV 12.6 H Immature Gran % (Auto) Neut % (Auto) Lymph % (Auto) [place] % (Auto) Eos % (Auto) Baso % (Auto) Lymph # (Auto) [place] # (Auto) Eos # (Auto) Baso # (Auto) Abs Immat Gran (auto) Absolute Neuts (auto) Absolute Nucleated RBC 0.000 Nucleated RBC % (auto) 0.0 Smear Tech's Comments Smear Path Review PT 18.8 H D INR 1.6 H Sodium 141 Potassium 3.1 L Chloride 111 H Carbon Dioxide 21 L Anion Gap 12 BUN 9 Creatinine 0.59 Estim Creat Clear Calc 107.6 Estimated GFR > 60 Random Glucose 97 Lactic Acid Lactic Acid F/U @ 2Hr Calcium 7.6 L Magnesium 1.1 L* Total Bilirubin 2.0 H AST 74 H ALT 10 Alkaline Phosphatase 139 H Troponin I High Sens B-Natriuretic Peptide Total Protein 6.5 Albumin 2.7 L Procalcitonin Nasal Screen MRSA (PCR) NEGATIVE Nasal S. aureus Screen NEGATIVE Nasal MRSA/S.aureus Interp SEE NOTE Ethyl Alcohol Respiratory Panel Muhammad See Note Adenovirus (Rapid PCR) Not Detected B.pert (TEM-PCR) Not Detected B.parapertussis DNA PCR Not Detected C. pneumoniae DNA (PCR) Not Detected Coronavirus OC43 (PCR) Not Detected Coronavirus HKU1 (PCR) Not Detected Coronavirus 229E (PCR) Not Detected Coronavirus NL63 (PCR) Not Detected Hep Bs Antigen Negative Hep Bs Antibody NONREACTIVE Hep B Core Total Ab Nonreactive Hepatitis C Ab (EIA) Nonreactive HIV 1&2 Ab/P24 Ag 4thGn Nonreactive Human Metapneumovir PCR Not Detected Influenza A (RT-PCR) Not Detected Influenza A (H1) PCR Not Detected Influ A (H1/09) PCR Not Detected Influenza A (H3) PCR Not Detected Influenza B (RT-PCR) Not Detected M. pneumoniae (PCR) Not Detected Parainfluenza 1 (PCR) Not Detected Parainfluenza 2 (PCR) Not Detected Parainfluenza 3 (PCR) Not Detected Parainfluenza 4 (PCR) Not Detected RSV (PCR) Not Detected Entero/Rhino (PCR) Not Detected SARS-CoV-2 RNA (RT-PCR) Not Detected Mental Status Exam Mental Status Exam Patient Orientation: Person and Place Level of Consciousness: Awake and Alert Patient Behavior: Talkative and Cooperative Affect Description: Calm Speech Pattern: Clear Thought Content: positive for [place] Judgement: Fair (limited) Medications Medications Current Medications Acetaminophen (Acetaminophen 325 Mg Tablet) 650 mg PO Q6H PRN PRN Reason: Pain, Mild 1-3,fever,headache Last Admin: 06/20/25 00:33 Dose: 650 mg Calcium Carbonate (Calcium Carbonate 750 Mg Tab.Chew) 750 mg PO Q4H PRN PRN Reason: Heartburn Ampicillin Sodium/Sulbactam (Sodium 3 gm/ Sodium Chloride) 100 mls @ 200 mls/hr IV Q6H [facility] Last Infusion: 06/20/25 07:11 Dose: Infused Magnesium Hydroxide (Milk Of Magnesia 30 Ml Oral.Susp) 30 ml PO DAILY PRN PRN Reason: Constipation Magnesium Oxide (Magnesium Oxide 400 Mg Tablet) 800 mg PO BIDPC [facility] Last Admin: 06/20/25 09:22 Dose: 800 mg Melatonin (Melatonin 3 Mg Tablet) 6 mg PO BEDTIME PRN PRN Reason: Insomnia Ondansetron HCl (Ondansetron Hcl 4 Mg/2 Ml Vial) 4 mg IVPUSH Q8H PRN PRN Reason: Nausea and Vomiting Pharmacy Consult (Consult Rx Etoh Phenob Im/Po) 1 each MISCELLANE ONCE PRN; Protocol PRN Reason: Consult order Phenobarbital (Phenobarbital 15 Mg Tablet) 45 mg PO BID [facility] Stop: 06/21/25 09:01 Last Admin: 06/20/25 09:21 Dose: 45 mg Phenobarbital (Phenobarbital 15 Mg Tablet) 15 mg PO BID [facility] Stop: 06/23/25 09:01 Phenobarbital (Phenobarbital 15 Mg Tablet) 15 mg PO DAILY [facility] Stop: 06/25/25 09:01 Sodium Chloride (0.9 % Sodium Chloride Flush 3 Ml Syringe) 3 ml IVFLUSH QSHIFT [facility] Last Admin: 06/20/25 07:11 Dose: Not Given Thiamine HCl (Thiamine Hcl 100 Mg Tablet) 100 mg PO DAILY [facility] Last Admin: 06/20/25 09:21 Dose: 100 mg Allergies Allergies Allergy/AdvReac Type Severity Reaction Status Date / Time No Known Allergies (No Known Allergy Verified 06/18/25 20:25 Allergies*) Assessment & Plan Assessment & Plan (1) Alcohol use disorder: Status: Acute Code(s): F10.90 - Alcohol use, unspecified, uncomplicated Assessment and Plan: * phenobarbitol taper in place- CIWA scores 0 * thiamine and folic acid * declines any intervention related AUD (medications or appt for follow up) * poor insight related to medical issues and ongoing alcohol use. If possible any specialty referrals that can be completed while medically admitted would be beneficial as it is unlikely patient will follow up outpatient (unless he is at some sort of facility that will bring him) Total time managing care of this patient today __35__ minutes. PMFSH Past Medical History Medical History Alcohol use disorder CHF (congestive heart failure) Alcohol abuse Acute hypoxemic respiratory failure Anemia Pneumonia Alcohol withdrawal syndrome Pancytopenia Alcohol abuse Thrombocytopenia Esophageal varices Acute on chronic anemia Alcoholic liver disease Aspiration pneumonia Thrombocytopenia Malnutrition CHF (congestive heart failure) Anemia Hypomagnesemia Cirrhosis Thrombocytopenia Acute on chronic anemia CHF (congestive heart failure) Anemia Alcohol abuse Surgical History Surgical History No history of previous surgery Social History Social History Household Members: None Household Members Other:: homeless Housing: Homeless Housing Other:: Homeless [facility] Do you presently have visiting nurse or other home services: No Unable to assess alcohol history related to: Refusing to respond Alcohol intake: current Alcohol intake frequency: 3 or more drinks per day Alcohol type: beer and hard liquor Comment: pt refuse to have staff remain in [place] Patient Tobacco Use Status: Former Tobacco user Tobacco use type: Cigarette Smoked in Last 30 Days: No Second Hand Smoke Exposure: No Use of substances other than those prescribed or required for medical reasons: No Advance Directives: Yes Advance Directives on File: Yes Advance Directives Date on File: 07/13/23 Nutrition Risks: No Nutritional Risk service: No
[2025-06-21 03:42] VITALS: BP 111/56; PULSE 85; RESP 20; TEMP 37.6; O2SAT 95
[2025-06-21 07:44] LABS: INTERNATIONAL NORM RATIO 1.6 (0.9-1.1); Prothrombin Time 18.8 SEC (10.9-12.4)
[2025-06-21 07:47] VITALS: BP 128/61; PULSE 72; RESP 20; TEMP 37.2; O2SAT 94
[2025-06-21 07:56] LABS: Hematocrit 30.1 % (42.0-52.0); Hemoglobin 10.0 g/dl (14.0-18.0); Mean Corpuscular HGB Conc 33.2 g/dl (31.0-36.0); Mean Corpuscular Hemoglobin 31.0 pg (27.0-33.0); Mean Corpuscular Volume 93.2 fL (80.0-98.0); NRBC Abs Auto 0.000 X10*3/uL (0.0-0.012); NRBC Pct Auto 0.0 /100WBC (0.0-0.2); Red Blood Count 3.23 X10*6/uL (4.60-5.80); White Blood Count 3.0 X10*3/uL (4.8-10.8)
[2025-06-21 07:57] LABS: Platelet Count 26 X10*3/uL (160-400)
[2025-06-21 08:06] LABS: Alanine Aminotransferase 9 U/L (0-40); Albumin Level 2.7 g/dL (3.5-5.0); Alkaline Phosphatase 131 U/L (39-117); Anion Gap 9 (12-20); Aspartate Amino Transferase 59 U/L (5-37); Blood Urea Nitrogen 9 mg/dL (9-16); Calcium 8.0 mg/dL (8.4-10.2); Carbon Dioxide 23 mmol/L (22-29); Chloride 107 mmol/L (96-108); Creatinine Clr Calc Pharmacy 109.4; Estimated Glomerular Filt Rate > 60; Potassium 3.5 mmol/L (3.3-5.1); Sodium 135 mmol/L (135-145); Total Protein 6.5 g/dL (6.5-8.0)
[2025-06-21 08:21] LABS: Procalcitonin 0.15 ng/mL
[2025-06-21 08:50] LABS: Magnesium 1.5 mg/dL (1.6-2.6)
[2025-06-21] MEDS: 0.9 % Sodium Chloride Flush 3 ML SYRINGE IVFLUSH ×2 (09:12→18:03)
--- NOTE | 2025-06-21 10:09 | HO.PM.IMPN ---
Subjective Subjective Date of Service: 06/21/25 Interval History: poor historian not really interested in quitting drinking coughing Review of Systems Review of Systems: Yes all other systems are reviewed and are negative Physical Exam Vital Signs: Vital Signs: Last Vital Signs Temp 99.0 F 06/21/25 07:47 Pulse 72 06/21/25 07:47 Resp 20 06/21/25 07:47 BP 128/61 06/21/25 07:47 Pulse Ox 94 06/21/25 07:47 O2 Del Method Nasal Cannula 06/21/25 07:47 O2 Flow Rate 2 06/21/25 07:47 Oxygen Flow Rate 2 06/18/25 20:23 BMI result Body Mass Index 20.0 Gen: in no acute distress, disheveled HEENT: sclera anicteric, moist mucus membranes Neck: supple Lungs: bilateral inspiratory crackles Heart: regular rate and rhythm, no murmurs Abd: soft, non-tender, non-distended Ext: no edema Skin: warm/well-perfused Neuro: alert and oriented x3, no focal findings Psych: restricted affect Objective Data Active Medications Acetaminophen (Acetaminophen 325 Mg Tablet) 650 mg PO Q6H PRN PRN Reason: Pain, Mild 1-3,fever,headache Last Admin: 06/20/25 00:33 Dose: 650 mg Documented By: FREDERIC Calcium Carbonate (Calcium Carbonate 750 Mg Tab.Chew) 750 mg PO Q4H PRN PRN Reason: Heartburn Ampicillin Sodium/Sulbactam (Sodium 3 gm/ Sodium Chloride) 100 mls @ 200 mls/hr IV Q6H [facility] Last Infusion: 06/21/25 06:22 Dose: Infused Documented By: PEREZ Magnesium Hydroxide (Milk Of Magnesia 30 Ml Oral.Susp) 30 ml PO DAILY PRN PRN Reason: Constipation Magnesium Oxide (Magnesium Oxide 400 Mg Tablet) 800 mg PO BIDPC [facility] Last Admin: 06/21/25 09:13 Dose: 800 mg Documented By: BETHANY Melatonin (Melatonin 3 Mg Tablet) 6 mg PO BEDTIME PRN PRN Reason: Insomnia Ondansetron HCl (Ondansetron Hcl 4 Mg/2 Ml Vial) 4 mg IVPUSH Q8H PRN PRN Reason: Nausea and Vomiting Pharmacy Consult (Consult Rx Etoh Phenob Im/Po) 1 each MISCELLANE ONCE PRN; Protocol PRN Reason: Consult order Phenobarbital (Phenobarbital 15 Mg Tablet) 15 mg PO BID [facility] Stop: 06/23/25 09:01 Phenobarbital (Phenobarbital 15 Mg Tablet) 15 mg PO DAILY [facility] Stop: 06/25/25 09:01 Sodium Chloride (0.9 % Sodium Chloride Flush 3 Ml Syringe) 3 ml IVFLUSH QSHIFT [facility] Last Admin: 06/21/25 09:12 Dose: 3 ml Documented By: BETHANY Thiamine HCl (Thiamine Hcl 100 Mg Tablet) 100 mg PO DAILY [facility] Last Admin: 06/21/25 09:13 Dose: 100 mg Documented By: BETHANY Labs 06/21/25 07:08 06/21/25 07:08 Labs: Laboratory Results - last 24 hr 06/21/25 07:08 MCV 93.2 MCH 31.0 MCHC 33.2 RDW 17.3 H Plt Count 26 L MPV Not Reportable Absolute Nucleated RBC 0.000 Nucleated RBC % (auto) 0.0 PT 18.8 H INR 1.6 H Anion Gap 9 L Estim Creat Clear Calc 109.4 Estimated GFR > 60 Random Glucose 101 Calcium 8.0 L Magnesium 1.5 L Total Bilirubin 1.6 H AST 59 H ALT 9 Alkaline Phosphatase 131 H Total Protein 6.5 Albumin 2.7 L Procalcitonin 0.15 Microbiology Microbiology Results: Microbiology 06/18/25 21:19 Blood Culture - Preliminary Blood - Venous No growth after 48 hours. 06/18/25 21:19 Blood Culture - Preliminary Blood - Venous No growth after 48 hours. 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 - supplemental O2, wean as tolerated hypoMg - replete PO, recheck level tomorrow hypoK - repleted acute toxic encephalopathy - due to EtOH, resolved AUD with high risk for withdrawal - phenobarbital taper, thiamine, Addiction Medicine consultation, declines MAT acute lactic acidosis - due to cirrhosis EtOH cirrhosis, pancytopenia, hypersplenism, coagulopathy - will need to establish GI care - INR did not budge after vit K, coagulopathy likely uncorrectable - monitor CBC daily VTE ppx - SCDs, no heparin given severe thrombocytopenia dispo - TBD; PT eval; pt homeless In my clinical judgment, the patient requires continued inpatient hospitalization for the following reasons: hypoxia, IV ABX Total time managing care of this patient today: 35 minutes. Quality Stroke Does the patient have a stroke diagnosis?: No VTE Prior VTE?: No VTE Risk Level:: Medical - moderate - high VTE Device Contraindication: N/A - Device Ordered VTE Drug Contraindication: Treatment Not Indicated
[2025-06-21 11:18] VITALS: O2SAT 79
[2025-06-21 11:45] VITALS: BP 103/51; PULSE 82; RESP 20; TEMP 38; O2SAT 96
[2025-06-21 15:13] VITALS: BP 119/60; PULSE 78; RESP 20; TEMP 37.2; O2SAT 95
[2025-06-21 19:43] VITALS: BP 117/53; PULSE 80; RESP 16; TEMP 36.7; O2SAT 92
[2025-06-22] VITALS (7 sets, daily range): BP systolic 94–113; BP diastolic 50–57; PULSE 75–92; RESP 18–20; TEMP 36.9–37.6; O2SAT 92–98
[2025-06-22] MEDS: 0.9 % Sodium Chloride Flush 3 ML SYRINGE IVFLUSH ×4 (00:12→22:04)
[2025-06-22 07:14] LABS: INTERNATIONAL NORM RATIO 1.5 (0.9-1.1); Prothrombin Time 17.6 SEC (10.9-12.4)
[2025-06-22 07:16] LABS: Hemoglobin 9.2 g/dl (14.0-18.0); Mean Corpuscular Volume 94.3 fL (80.0-98.0); NRBC Abs Auto 0.000 X10*3/uL (0.0-0.012); NRBC Pct Auto 0.0 /100WBC (0.0-0.2)
[2025-06-22 07:17] LABS: Hematocrit 28.3 % (42.0-52.0); Mean Corpuscular HGB Conc 32.5 g/dl (31.0-36.0); Mean Corpuscular Hemoglobin 30.7 pg (27.0-33.0); PLT CLUMP 1; Red Blood Count 3.00 X10*6/uL (4.60-5.80)
[2025-06-22 07:20] LABS: PLT ABN DIST 1; Platelet Count 28 X10*3/uL (160-400); White Blood Count 3.1 X10*3/uL (4.8-10.8)
[2025-06-22 07:38] LABS: Alanine Aminotransferase 6 U/L (0-40); Albumin Level 2.5 g/dL (3.5-5.0); Alkaline Phosphatase 145 U/L (39-117); Anion Gap 9 (12-20); Aspartate Amino Transferase 42 U/L (5-37); Blood Urea Nitrogen 9 mg/dL (9-16); Calcium 8.0 mg/dL (8.4-10.2); Carbon Dioxide 23 mmol/L (22-29); Chloride 108 mmol/L (96-108); Creatinine Clr Calc Pharmacy 119.4; Estimated Glomerular Filt Rate > 60; Magnesium 1.3 mg/dL (1.6-2.6); Potassium 3.8 mmol/L (3.3-5.1); Sodium 136 mmol/L (135-145); Total Protein 6.2 g/dL (6.5-8.0)
[2025-06-22] MEDS: Furosemide 20 MG/2 ML VIAL IVPUSH (08:18)
[2025-06-22] MEDS: Magnesium Sulfate/H2O 2 GM/50 ML PIGGYBACK IV (08:18)
[2025-06-22 08:21] LABS: B Type Natriuretic Peptide 190 pg/mL (<100)
--- NOTE | 2025-06-22 09:48 | P.PNIM_ITS ---
Subjective Subjective Date of Service: 06/22/25 Interval History: on 6L O2 coughing Review of Systems Review of Systems: Yes all other systems are reviewed and are negative Physical Exam 2 Vital Signs: Vital Signs: Last Vital Signs Temp 99.2 F 06/22/25 07:19 Pulse 78 06/22/25 07:19 Resp 20 06/22/25 07:19 BP 108/57 L 06/22/25 07:19 Pulse Ox 96 06/22/25 07:19 O2 Del Method Oxymask 06/22/25 07:19 O2 Flow Rate 6 06/22/25 07:19 Oxygen Flow Rate 2 06/18/25 20:23 BMI result Body Mass Index 20.0 Gen: in no acute distress, disheveled HEENT: sclera anicteric, moist mucus membranes Neck: supple Lungs: bilateral wet inspiratory crackles Heart: regular rate and rhythm, no murmurs Abd: soft, non-tender, non-distended Ext: no edema Skin: warm/well-perfused Neuro: alert and oriented x3, no focal findings Psych: restricted affect Objective Data Active Medications Acetaminophen (Acetaminophen 325 Mg Tablet) 650 mg PO Q6H PRN PRN Reason: Pain, Mild 1-3,fever,headache Last Admin: 06/20/25 00:33 Dose: 650 mg Documented By: FREDERIC Calcium Carbonate (Calcium Carbonate 750 Mg Tab.Chew) 750 mg PO Q4H PRN PRN Reason: Heartburn Ampicillin Sodium/Sulbactam (Sodium 3 gm/ Sodium Chloride) 100 mls @ 200 mls/hr IV Q6H [facility] Last Infusion: 06/22/25 06:24 Dose: Infused Documented By: PEREZ Magnesium Sulfate (Magnesium Sulfate/H2o) 2 gm in 50 mls @ 25 mls/hr IV ONCE ONE Stop: 06/22/25 09:49 Last Admin: 06/22/25 08:18 Dose: 25 mls/hr Documented By: SHAAN Magnesium Hydroxide (Milk Of Magnesia 30 Ml Oral.Susp) 30 ml PO DAILY PRN PRN Reason: Constipation Magnesium Oxide (Magnesium Oxide 400 Mg Tablet) 800 mg PO BIDPC [facility] Last Admin: 06/22/25 08:18 Dose: 800 mg Documented By: SHAAN Melatonin (Melatonin 3 Mg Tablet) 6 mg PO BEDTIME PRN PRN Reason: Insomnia Ondansetron HCl (Ondansetron Hcl 4 Mg/2 Ml Vial) 4 mg IVPUSH Q8H PRN PRN Reason: Nausea and Vomiting Pharmacy Consult (Consult Rx Etoh Phenob Im/Po) 1 each MISCELLANE ONCE PRN; Protocol PRN Reason: Consult order Phenobarbital (Phenobarbital 15 Mg Tablet) 15 mg PO BID [facility] Stop: 06/23/25 09:01 Last Admin: 06/22/25 08:19 Dose: 15 mg Documented By: SHAAN Phenobarbital (Phenobarbital 15 Mg Tablet) 15 mg PO DAILY [facility] Stop: 06/25/25 09:01 Sodium Chloride (0.9 % Sodium Chloride Flush 3 Ml Syringe) 3 ml IVFLUSH QSHIFT [facility] Last Admin: 06/22/25 08:19 Dose: 3 ml Documented By: SHAAN Thiamine HCl (Thiamine Hcl 100 Mg Tablet) 100 mg PO DAILY [facility] Last Admin: 06/22/25 08:19 Dose: 100 mg Documented By: SHAAN Labs 06/22/25 06:18 06/22/25 06:18 Labs: Laboratory Results - last 24 hr 06/22/25 06:18 MCV 94.3 MCH 30.7 MCHC 32.5 RDW 17.5 H Plt Count 28 L MPV 12.0 Absolute Nucleated RBC 0.000 Nucleated RBC % (auto) 0.0 PT 17.6 H INR 1.5 H Anion Gap 9 L Estim Creat Clear Calc 119.4 Estimated GFR > 60 Random Glucose 98 Calcium 8.0 L Magnesium 1.3 L* Total Bilirubin 1.0 AST 42 H ALT 6 Alkaline Phosphatase 145 H B-Natriuretic Peptide 190 H Total Protein 6.2 L Albumin 2.5 L Microbiology Microbiology Results: Microbiology 06/18/25 21:19 Blood Culture - Preliminary Blood - Venous No growth after 48 hours. 06/18/25 21:19 Blood Culture - Preliminary Blood - Venous No growth after 48 hours. 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 - supplemental O2, wean as tolerated - will give 1 dose of furosemide for suspected fluid overload and check TTE hypoMg - replete IV and continue PO maintenance, recheck level tomorrow hypoK - repleted acute toxic encephalopathy - due to EtOH, resolved AUD with high risk for withdrawal - phenobarbital taper, thiamine, Addiction Medicine consultation, declines MAT acute lactic acidosis - due to cirrhosis EtOH cirrhosis, pancytopenia, hypersplenism, coagulopathy - will need to establish GI care - INR did not budge after vit K, coagulopathy likely uncorrectable - monitor CBC daily VTE ppx - SCDs, no heparin given severe thrombocytopenia dispo - STR per PT; pt homeless In my clinical judgment, the patient requires continued inpatient hospitalization for the following reasons: hypoxia, IV ABX Total time managing care of this patient today: 35 minutes. Quality Stroke Does the patient have a stroke diagnosis?: No VTE Prior VTE?: No VTE Risk Level:: Medical - moderate - high VTE Device Contraindication: N/A - Device Ordered VTE Drug Contraindication: Treatment Not Indicated
[2025-06-23] VITALS (7 sets, daily range): BP systolic 90–128; BP diastolic 53–59; PULSE 71–84; RESP 16–20; TEMP 36.7–37.4; O2SAT 78–94
[2025-06-23 06:44] LABS: Venous Blood Gas Refer to POC result
[2025-06-23 06:45] LABS: VBG HCO3 27 mmol/L (22-26); VBG O2 % Saturation 92.0 %
[2025-06-23 06:56] LABS: Alanine Aminotransferase 6 U/L (0-40); Albumin Level 2.6 g/dL (3.5-5.0); Alkaline Phosphatase 156 U/L (39-117); Anion Gap 9 (12-20); Aspartate Amino Transferase 38 U/L (5-37); Blood Urea Nitrogen 11 mg/dL (9-16); Calcium 8.5 mg/dL (8.4-10.2); Carbon Dioxide 25 mmol/L (22-29); Chloride 108 mmol/L (96-108); Creatinine Clr Calc Pharmacy 99.5; Estimated Glomerular Filt Rate > 60; Hematocrit 28.4 % (42.0-52.0); Hemoglobin 9.5 g/dl (14.0-18.0); Magnesium 1.5 mg/dL (1.6-2.6); Mean Corpuscular HGB Conc 33.5 g/dl (31.0-36.0); Mean Corpuscular Hemoglobin 31.6 pg (27.0-33.0); Mean Corpuscular Volume 94.4 fL (80.0-98.0); NRBC Abs Auto 0.000 X10*3/uL (0.0-0.012); NRBC Pct Auto 0.0 /100WBC (0.0-0.2); Platelet Count 32 X10*3/uL (160-400); Potassium 4.1 mmol/L (3.3-5.1); Red Blood Count 3.01 X10*6/uL (4.60-5.80); Sodium 138 mmol/L (135-145); Total Protein 6.5 g/dL (6.5-8.0); White Blood Count 3.2 X10*3/uL (4.8-10.8)
[2025-06-23 07:02] LABS: B Type Natriuretic Peptide 113 pg/mL (<100)
--- NOTE | 2025-06-23 07:21 | P.PNIM_ITS ---
Subjective Subjective Date of Service: 06/23/25 Interval History: on 4L O2, coughing Review of Systems Review of Systems: Yes all other systems are reviewed and are negative Physical Exam 2 Vital Signs: Vital Signs: Last Vital Signs Temp 98.2 F 06/23/25 04:00 Pulse 73 06/23/25 04:00 Resp 20 06/23/25 04:00 BP 111/57 L 06/23/25 04:00 Pulse Ox 92 06/23/25 04:00 O2 Del Method Nasal Cannula 06/23/25 04:00 O2 Flow Rate 4 06/23/25 04:00 Oxygen Flow Rate 2 06/18/25 20:23 BMI result Body Mass Index 20.0 Gen: in no acute distress, disheveled HEENT: sclera anicteric, moist mucus membranes Neck: supple Lungs: bilateral wet inspiratory crackles Heart: regular rate and rhythm, no murmurs Abd: soft, non-tender, non-distended Ext: no edema Skin: warm/well-perfused Neuro: alert and oriented x3, no focal findings Psych: restricted affect Objective Data Active Medications Acetaminophen (Acetaminophen 325 Mg Tablet) 650 mg PO Q6H PRN PRN Reason: Pain, Mild 1-3,fever,headache Last Admin: 06/22/25 22:03 Dose: 650 mg Documented By: LATRICIA Calcium Carbonate (Calcium Carbonate 750 Mg Tab.Chew) 750 mg PO Q4H PRN PRN Reason: Heartburn Ampicillin Sodium/Sulbactam (Sodium 3 gm/ Sodium Chloride) 100 mls @ 200 mls/hr IV Q6H [facility] Last Infusion: 06/23/25 06:29 Dose: Infused Documented By: LATRICIA Magnesium Hydroxide (Milk Of Magnesia 30 Ml Oral.Susp) 30 ml PO DAILY PRN PRN Reason: Constipation Magnesium Oxide (Magnesium Oxide 400 Mg Tablet) 800 mg PO BIDPC [facility] Last Admin: 06/22/25 18:03 Dose: 800 mg Documented By: SHAAN Melatonin (Melatonin 3 Mg Tablet) 6 mg PO BEDTIME PRN PRN Reason: Insomnia Last Admin: 06/23/25 00:51 Dose: 6 mg Documented By: LATRICIA Ondansetron HCl (Ondansetron Hcl 4 Mg/2 Ml Vial) 4 mg IVPUSH Q8H PRN PRN Reason: Nausea and Vomiting Pharmacy Consult (Consult Rx Etoh Phenob Im/Po) 1 each MISCELLANE ONCE PRN; Protocol PRN Reason: Consult order Phenobarbital (Phenobarbital 15 Mg Tablet) 15 mg PO BID [facility] Stop: 06/23/25 09:01 Last Admin: 06/22/25 22:03 Dose: 15 mg Documented By: LATRICIA Phenobarbital (Phenobarbital 15 Mg Tablet) 15 mg PO DAILY [facility] Stop: 06/25/25 09:01 Sodium Chloride (0.9 % Sodium Chloride Flush 3 Ml Syringe) 3 ml IVFLUSH QSHIFT [facility] Last Admin: 06/22/25 22:04 Dose: 3 ml Documented By: LATRICIA Thiamine HCl (Thiamine Hcl 100 Mg Tablet) 100 mg PO DAILY [facility] Last Admin: 06/22/25 08:19 Dose: 100 mg Documented By: SHAAN Labs 06/23/25 06:33 06/23/25 06:33 Labs: Laboratory Results - last 24 hr 06/22/25 06/23/25 06/23/25 06:18 06:33 06:39 MCV 94.3 94.4 MCH 30.7 31.6 MCHC 32.5 33.5 RDW 17.5 H 17.9 H Plt Count 28 L 32 L MPV 12.0 11.1 Absolute Nucleated RBC 0.000 0.000 Nucleated RBC % (auto) 0.0 0.0 VBG pH 7.50 H VBG pCO2 34 VBG pO2 66 VBG HCO3 27 H VBG O2 Saturation 92.0 VBG Base Excess 4.2 Anion Gap 9 L 9 L Estim Creat Clear Calc 119.4 99.5 Estimated GFR > 60 > 60 Random Glucose 98 99 Calcium 8.0 L 8.5 D Magnesium 1.3 L* 1.5 L Total Bilirubin 1.0 0.9 AST 42 H 38 H ALT 6 6 Alkaline Phosphatase 145 H 156 H B-Natriuretic Peptide 190 H 113 H Total Protein 6.2 L 6.5 Albumin 2.5 L 2.6 L Assessment and Plan (1) Pneumonia: Status: Acute (2) Hypoxia: Status: Acute Assessment and Plan: d4, 55yo homeless M with AUD and cirrhosis, HFpEF, GERD presenting with EtOH intoxication and found to be hypoxic due to multifocal PNA acute hypoxic respiratory failure due to multifocal PNA - 8/7- ampicillin-sulbactam, BCx neg, PCT low, RPP + MRSA swabs negative, urinary antigens for Legionella and pneumococcus pending - 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 - supplemental O2, wean as tolerated, currently on 4L - will give another dose of furosemide for suspected fluid overload, TTE pending hypoMg - replete IV and continue PO maintenance, recheck level tomorrow hypoK - repleted acute toxic encephalopathy - due to EtOH, resolved AUD with high risk for withdrawal - phenobarbital taper, thiamine, Addiction Medicine consultation, declines MAT acute lactic acidosis - due to cirrhosis EtOH cirrhosis, pancytopenia, hypersplenism, coagulopathy - will need to establish GI care - INR did not budge after vit K, coagulopathy likely uncorrectable - monitor CBC daily VTE ppx - SCDs, no heparin given severe thrombocytopenia dispo - STR per PT; pt homeless In my clinical judgment, the patient requires continued inpatient hospitalization for the following reasons: hypoxia, IV ABX Total time managing care of this patient today: 35 minutes. Quality Stroke Does the patient have a stroke diagnosis?: No VTE Prior VTE?: No VTE Risk Level:: Medical - moderate - high VTE Device Contraindication: N/A - Device Ordered VTE Drug Contraindication: Treatment Not Indicated
[2025-06-23 07:25] LABS: INTERNATIONAL NORM RATIO 1.4 (0.9-1.1); Prothrombin Time 16.3 SEC (10.9-12.4)
[2025-06-23] MEDS: Magnesium Sulfate/H2O 2 GM/50 ML PIGGYBACK IV (07:49)
[2025-06-23] MEDS: Furosemide 20 MG/2 ML VIAL IVPUSH (07:52)
[2025-06-23] MEDS: 0.9 % Sodium Chloride Flush 3 ML SYRINGE IVFLUSH ×2 (07:54→17:24)
--- NOTE | 2025-06-23 16:24 | MHC.CM.PN ---
PT rec is STR. Clinical info has been sent to local STRs. DP STR via BLS.
--- NOTE | 2025-06-23 23:02 | PC.NURSE ---
Rt site IV line removed due to infiltration. Pt tolerated well.
[2025-06-24] VITALS (7 sets, daily range): BP systolic 91–121; BP diastolic 51–56; PULSE 70–83; RESP 16–20; TEMP 36.3–37.5; O2SAT 92–94
[2025-06-24 06:51] LABS: Hematocrit 30.4 % (42.0-52.0); Hemoglobin 9.8 g/dl (14.0-18.0); Mean Corpuscular HGB Conc 32.2 g/dl (31.0-36.0); Mean Corpuscular Hemoglobin 30.9 pg (27.0-33.0); Mean Corpuscular Volume 95.9 fL (80.0-98.0); NRBC Abs Auto 0.000 X10*3/uL (0.0-0.012); NRBC Pct Auto 0.0 /100WBC (0.0-0.2); Red Blood Count 3.17 X10*6/uL (4.60-5.80); White Blood Count 3.5 X10*3/uL (4.8-10.8)
[2025-06-24 07:01] LABS: Platelet Count 38 X10*3/uL (160-400)
[2025-06-24 07:15] LABS: Anion Gap 11 (12-20); Blood Urea Nitrogen 17 mg/dL (9-16); Calcium 8.7 mg/dL (8.4-10.2); Carbon Dioxide 24 mmol/L (22-29); Chloride 107 mmol/L (96-108); Creatinine Clr Calc Pharmacy 95.1; Estimated Glomerular Filt Rate > 60; Magnesium 1.8 mg/dL (1.6-2.6); Potassium 4.6 mmol/L (3.3-5.1); Sodium 137 mmol/L (135-145)
[2025-06-24] MEDS: 0.9 % Sodium Chloride Flush 3 ML SYRINGE IVFLUSH ×3 (09:14→19:25)
--- NOTE | 2025-06-24 16:20 | MHC.CM.PN ---
[facility] has offered a bed for STR. The patient accepts the bed offer. The MDS has been documented and faxed to [facility]. Tena called with corrections needed to the paperwork. Corrections addressed and faxed back to [facility]. DP STR @ [facility] via BLS pending [facility] MDS and [facility] approval. notified that a <30 day clause is needed on the DC Summary.
--- NOTE | 2025-06-24 16:23 | HO.PM.IMPN ---
Subjective Subjective Date of Service: 06/24/25 Interval History: O2 weaned to 2L, SOB improved No acute events overnight No acute complaints Review of Systems Review of Systems: Yes all other systems are reviewed and are negative Physical Exam Exam: Exam: General: AOx3, no acute distress. Disheveled, poor hygiene Resp: Coarse breath sounds bilaterally CVS: S1, S2, RRR GI: +BS, NT, no distention Skin: Warm, dry Neuro: Cranial nerves II-XII grossly intact bilaterally. Motor grossly intact bilaterally Extremities: No edema Psych: Calm, cooperative Vital Signs: Vital Signs: Last Vital Signs Temp 98.4 F 06/24/25 15:02 Pulse 71 06/24/25 15:02 Resp 18 06/24/25 15:02 BP 101/53 L 06/24/25 15:02 Pulse Ox 94 06/24/25 15:02 O2 Del Method Nasal Cannula 06/24/25 15:02 O2 Flow Rate 2 06/24/25 15:02 Oxygen Flow Rate 2 06/18/25 20:23 BMI result Body Mass Index 20.0 Objective Data Active Medications Acetaminophen (Acetaminophen 325 Mg Tablet) 650 mg PO Q6H PRN PRN Reason: Pain, Mild 1-3,fever,headache Last Admin: 06/22/25 22:03 Dose: 650 mg Documented By: LATRICIA Calcium Carbonate (Calcium Carbonate 750 Mg Tab.Chew) 750 mg PO Q4H PRN PRN Reason: Heartburn Ampicillin Sodium/Sulbactam (Sodium 3 gm/ Sodium Chloride) 100 mls @ 200 mls/hr IV Q6H [facility] Last Infusion: 06/24/25 12:56 Dose: Infused Documented By: MANUELA Magnesium Hydroxide (Milk Of Magnesia 30 Ml Oral.Susp) 30 ml PO DAILY PRN PRN Reason: Constipation Magnesium Oxide (Magnesium Oxide 400 Mg Tablet) 800 mg PO BIDPC [facility] Last Admin: 06/24/25 09:13 Dose: 800 mg Documented By: MANUELA Melatonin (Melatonin 3 Mg Tablet) 6 mg PO BEDTIME PRN PRN Reason: Insomnia Last Admin: 06/23/25 00:51 Dose: 6 mg Documented By: LATRICIA Ondansetron HCl (Ondansetron Hcl 4 Mg/2 Ml Vial) 4 mg IVPUSH Q8H PRN PRN Reason: Nausea and Vomiting Pharmacy Consult (Consult Rx Etoh Phenob Im/Po) 1 each MISCELLANE ONCE PRN; Protocol PRN Reason: Consult order Phenobarbital (Phenobarbital 15 Mg Tablet) 15 mg PO DAILY [facility] Stop: 06/25/25 09:01 Last Admin: 06/24/25 09:14 Dose: 15 mg Documented By: MANUELA Sodium Chloride (0.9 % Sodium Chloride Flush 3 Ml Syringe) 3 ml IVFLUSH QSHIFT [facility] Last Admin: 06/24/25 09:14 Dose: 3 ml Documented By: MANUELA Thiamine HCl (Thiamine Hcl 100 Mg Tablet) 100 mg PO DAILY [facility] Last Admin: 06/24/25 09:14 Dose: 100 mg Documented By: MANUELA Labs 06/24/25 06:29 06/24/25 06:29 Labs: Laboratory Results - last 24 hr 06/24/25 06:29 MCV 95.9 MCH 30.9 MCHC 32.2 RDW 18.2 H Plt Count 38 L MPV TNP Absolute Nucleated RBC 0.000 Nucleated RBC % (auto) 0.0 Anion Gap 11 L Estim Creat Clear Calc 95.1 Estimated GFR > 60 Random Glucose 100 Calcium 8.7 Magnesium 1.8 Microbiology Microbiology Results: Microbiology 06/18/25 21:19 Blood Culture - Final Blood - Venous No growth after 5 days. 06/18/25 21:19 Blood Culture - Final Blood - Venous No growth after 5 days. 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 The calculated ejection fraction is 64%. No obvious valvular pathology seen on this study. acute on chronic hypoMg, resolvled - replete IV and continue PO maintenance hypoK - repleted acute toxic encephalopathy - due to EtOH, resolved AUD with high risk for withdrawal - phenobarbital taper, thiamine, Addiction Medicine consultation, declines MAT - CIWA has been 0, will discontinue acute lactic acidosis - due to cirrhosis EtOH cirrhosis, pancytopenia, hypersplenism, coagulopathy - will need to establish GI care - INR did not budge after vit K, coagulopathy likely uncorrectable - monitor CBC daily VTE ppx - SCDs, no heparin given severe thrombocytopenia dispo - STR per PT; pt homeless In my clinical judgment, the patient requires continued inpatient hospitalization for the following reasons: hypoxia, IV ABX; plan is to discharge to [facility] tomorrow. Quality Stroke Does the patient have a stroke diagnosis?: No VTE Prior VTE?: No VTE Risk Level:: Medical - moderate - high VTE Device Contraindication: N/A - Device Ordered VTE Drug Contraindication: Treatment Not Indicated
[2025-06-24 17:33] LABS: Strep Pneumo Ag urine Not Detected (Not Detected)
[2025-06-25 03:47] VITALS: BP 95/54; PULSE 71; RESP 20; TEMP 37.1; O2SAT 93
[2025-06-25 07:18] VITALS: BP 90/59; PULSE 68; RESP 18; TEMP 36.9; O2SAT 92
[2025-06-25] MEDS: Lactated Ringers 500 ML 999 ML IV (07:35)
[2025-06-25] MEDS: 0.9 % Sodium Chloride Flush 3 ML SYRINGE IVFLUSH (07:42)
--- NOTE | 2025-06-25 11:02 | MHC.CLN ---
NUTRITION DIET=REGULAR. ENSURE BID PROVIDES ADDITIONAL 700 KCALS, 60 G PROTEIN. INTAKE AT MEALS USUALLY VERY GOOD. CURRENT NUTRITION INTERVENTIONS APPROPRIATE.
[2025-06-25 12:00] VITALS: BP 123/59; PULSE 75; RESP 14; TEMP 530.9; TEMP 987.6; O2SAT 92
--- NOTE | 2025-06-25 13:11 | PM.DS ---
DS: Providers Provider Date of Service: 06/25/25 Date of admission: 06/19/25 00:15 Date of discharge: 06/25/25 Primary care physician: [facility] Consults: 06/19/25 00:38 Addiction Medicine Provider Routine Consulting Provider: Addiction Covering Reason for consultation: Alcohol use disorder 06/19/25 08:39 Addiction Medicine Provider Routine Consulting Provider: Addiction Covering Reason for consultation: etoh DS: Diagnosis Discharge Diagnosis (1) Pneumonia: Status: Acute (2) Hypoxia: Status: Acute DS: Summary Hospital Course Hospital Course: From admission HPI: Date of Service: 06/19/25 Chief Complaint: Alcohol intoxication This is a 55-year-old male with pertinent history of alcohol use disorder with alcoholic cirrhosis, gastroesophageal reflux disease, congestive heart failure with preserved ejection fraction who presents to the emergency department for evaluation after alcohol intoxication. Patient is intoxicated and does not know how he ended up in the ER. Admits to drinking alcohol on the day of presentation. Does endorse productive cough. Denies dyspnea. Unclear if he is compliant with home medications. Patient is a poor historian. In the emergency department, patient was satting 80% on room air. Imaging with right-sided pneumonia. Patient was given empiric IV antibiotics. Denies abdominal pain, hematemesis, nausea, vomiting, fever, chills, chest pain, palpitations, changes in urinary or bowel habits. Hospital course Pt was admitted to the hospital for acute hypoxic respiratory failure in the setting of pneumonia. Pt acutely intoxicated at time of presentation to the ED, and initial concern for possible aspiration. Pt was started on Unasyn which he received throughout his hospital stay. Pt responded well to therapies, and eventually was weaned from supplemental oxygen. However, it should be noted that pt has a long hx of hypoxic episodes, and will likely qualify for home O2, though this is not possible given patient's homeless status. Pt was seen and evaluated by Physical therapy which recommended STR. Arrangements were made at [facility] where he had a bed waiting for him, and pt was strongly encouraged to go to STR for continued O2 support and strength and conditioning; however, pt refused to go to rehab and wished to be discharged home. Of note, pt is chronically hypotensive secondary to cirrhosis, and BP was mostly soft during stay. At time of discharge pt's BP was 108/58 and satting at 91% on RA. Pt will be discharged on Augmentin 875 mg b.i.d. x4 days, set to end on 06/29. For chronic hypomagnesemia, pt was replenished with IV Mag and will be discharged home on p.o. maintenance For alcohol use disorder, was treated with phenobarb protocol. Was seen by Addiction medicine but declined any treatment or therapies. For alcoholic cirrhosis, pt will need to establish care with GI for treatment and monitoring. Time Attestation Discharge Coordination Time (in mins): 35 Quality: Safe Use of Opioids Does Pt have an Active Cancer Diagnosis on the Problem List?: No Quality: Stroke Does the patient have a stroke diagnosis?: No Physical Exam Exam: Exam: General: AOx3, no acute distress. Dissheveled Resp: CTA bilaterally. No wheezing or rhonchi CVS: S1, S2, RRR GI: +BS, NT, no distention Skin: Warm, dry Neuro: Cranial nerves II-XII grossly intact bilaterally. Motor grossly intact bilaterally Extremities: No edema Psych: Appropriate affect Vital Signs: Vital Signs: Last Vital Signs Temp 987.6 F H 06/25/25 12:00 Pulse 75 06/25/25 12:00 Resp 14 06/25/25 12:00 BP 123/59 L 06/25/25 12:00 Pulse Ox 92 06/25/25 12:00 O2 Del Method Nasal Cannula 06/25/25 12:00 O2 Flow Rate 2 06/25/25 12:00 Oxygen Flow Rate 2 06/18/25 20:23 BMI result Body Mass Index 20.0 DS: Data Data Completed and Pending Completed studies during hospitalization [Text1]: Procedures Control Bleeding in Gastrointestinal Tract, Via Natural or Artificial Opening Endoscopic (08/29/23) Control Bleeding in Nasal Mucosa and Soft Tissue, Via Natural or Artificial Opening (11/29/24) Detoxification Services for Substance Abuse Treatment (02/11/25) Drainage of Peritoneal Cavity, Percutaneous Approach (10/21/24) Excision of Ascending Colon, Via Natural or Artificial Opening Endoscopic, Diagnostic (08/03/23) Excision of Descending Colon, Via Natural or Artificial Opening Endoscopic, Diagnostic (08/03/23) Insertion of Infusion Device into Upper Vein, Percutaneous Approach (08/29/23) Introduction of Mineral-based Topical Hemostatic Agent into Lower GI, Via Natural or Artificial Opening Endoscopic, [employer] (08/03/23) Introduction of Mineral-based Topical Hemostatic Agent into Upper GI, Via Natural or Artificial Opening Endoscopic, [employer] (08/29/23) Occlusion of Esophageal Vein with Extraluminal Device, Via Natural or Artificial Opening Endoscopic (11/29/24) Occlusion of Esophageal Vein, Via Natural or Artificial Opening Endoscopic (01/22/24) Transfusion of Nonautologous Plasma Cryoprecipitate into Peripheral Vein, Percutaneous Approach (08/03/23) Transfusion of Nonautologous Platelets into Peripheral Vein, Percutaneous Approach (11/29/24) Transfusion of Nonautologous Red Blood Cells into Peripheral Vein, Percutaneous Approach (11/29/24) Labs on day of discharge: Laboratory Results - last 24 hr 06/19/25 09:09 Ur Strep pneumoniae Ag Not Detected Discharge Plan Discharge Anticipated Discharge Date/Time: 06/25/25 12:34 Patient Disposition: Home, Self-Care Discharge Diagnosis: Acute hypoxic respiratory failure in the setting of pneumonia Referrals: [facility] [Primary Care Provider, Medical] - 1 Week Discharge Medications: New amoxicillin-pot clavulanate 875-125 mg tablet 1 tab PO BID Qty: 9 0RF Rx Instructions: Take one tablet twice a day with food for the next 4 days. Begin taking the evening of 06/25 and finish on 06/29. Complete whole course of antibiotics magnesium oxide 500 mg capsule 500 mg PO BID Qty: 90 0RF Rx Instructions: Take one capsule twice a day Continued acetaminophen 325 mg Tablet 325 mg PO Q6H PRN (Reason: Migraine Headache) Discharge Orders: Discharge Order (Routine); Ordered 06/25/25 Ordered By: Christian Booth Activity on Discharge: As tolerated Stand Alone Forms: Patient Portal Discharge page Print Language: Citizen Of [place] Care Plan Goals: Resolution of hypoxia, pneumonia Health Concerns: Acute hypoxic respiratory failure Pneumonia Alcohol use disorder Plan of Treatment: You were admitted to the hospital after being found intoxicated in the community, and noted to be desatting into the 80s on room air. Workup was concerning for multifocal pneumonia and UR treated with IV antibiotics, as well as supplemental oxygen. You were seen and evaluated by Physical therapy who recommended short term rehab for strength and conditioning, as well as continued supplemental oxygen support. However, you refused to go to rehab and wished to be discharged back into the community. For pneumonia, take Augmentin 875 mg twice a day with meals for the next 4 days. Take full course of antibiotics starting this evening and ending on 06/29. For alcoholic cirrhosis, you will need to establish with GI outpatient for treatment and monitoring. For alcohol use disorder, you declined any treatment or services. Assessment: See discharge summary Discharge Date/Time: 06/25/25 14:45
[2025-06-25 13:48] VITALS: BP 108/58; PULSE 76; RESP 16; TEMP 37.4; O2SAT 91
--- NOTE | 2025-06-25 14:16 | MHC.CM.PN ---
[facility] with a care back pack
--- NOTE | 2025-06-25 14:24 | MHC.CM.PN ---
pt being dcd back to the streets he will walk to his destination
== END 2025-06-25 14:45 | disposition home or self-care (01) | DRG 139 ==
LOC: HO.ED 06-19 00:16 → HO.EDOVER 06-19 00:25 → HO.IMC 06-20 15:14 → HO.S3 06-24 16:17
PROVIDERS: Family Medicine; Physician Assistant; Admitting Provider Student in an Organized Health Care Education/Training Program; Emergency Provider Emergency Medicine; Visit Provider Student in an Organized Health Care Education/Training Program
DX: J18.9 Pneumonia, unspecified organism (principal); J96.01 Acute respiratory failure with hypoxia; G92.8 Other toxic encephalopathy; D61.818 Other pancytopenia; Z59.02 Unsheltered homelessness; E87.21 Acute metabolic acidosis; K70.30 Alcoholic cirrhosis of liver without ascites; Y90.8 Blood alcohol level of 240 mg/100 ml or more; K21.9 Gastro-esophageal reflux disease without esophagitis; D68.4 Acquired coagulation factor deficiency; I50.32 Chronic diastolic (congestive) heart failure; F10.129 Alcohol abuse with intoxication, unspecified; D73.1 Hypersplenism; E83.42 Hypomagnesemia; E87.6 Hypokalemia; Z20.822 Contact with and (suspected) exposure to COVID-19; Z87.891 Personal history of nicotine dependence; Z79.899 Other long term (current) drug therapy
CPT/HCPCS: 36415; 71045; 71046; 71260; 80048; 80053; 80307; 82803; 83605; 83735; 83880; 84145; 84484; 85025; 85027; 85610; 86704; 86706; 86803; 87040; 87340; 87389; 87449; 87633; 87640; 87641; 87899; 92610; 93005; 97110; 97116; 97162; 99285; J0295; J0696; J1271; J1938; J2560; J3475; J7120; Q9967; S9485

== ENCOUNTER → 2025-06-18 20:58 | Outpatient (BNV) | payer MEDICAID, SELFPAY | PROVIDERS: Admitting Provider Student in an Organized Health Care Education/Training Program; Emergency Provider Emergency Medicine; Visit Provider Student in an Organized Health Care Education/Training Program | DX: R09.02 Hypoxemia (principal) | CPT/HCPCS: 71046 ==

== ENCOUNTER → 2025-06-18 20:58 | Outpatient (BNV) | payer MEDICAID, SELFPAY | PROVIDERS: Admitting Provider Student in an Organized Health Care Education/Training Program; Emergency Provider Emergency Medicine; Visit Provider Internal Medicine | DX: R06.02 Shortness of breath (principal) | CPT/HCPCS: 93010 ==

== ENCOUNTER → 2025-06-19 00:13 | Outpatient (BNV) | payer MEDICAID, SELFPAY | PROVIDERS: Admitting Provider Student in an Organized Health Care Education/Training Program; Emergency Provider Emergency Medicine; Visit Provider Student in an Organized Health Care Education/Training Program | DX: J98.11 Atelectasis (principal) | CPT/HCPCS: 71260 ==

== ENCOUNTER 2025-06-19 00:15 | Outpatient (BNV) | payer MEDICAID, SELFPAY | END 2025-06-22 07:17 | PROVIDERS: Admitting Provider Student in an Organized Health Care Education/Training Program; Emergency Provider Emergency Medicine; Visit Provider Radiology Vascular & Interventional Radiology | DX: R09.02 Hypoxemia (principal) | CPT/HCPCS: 71045 ==

== ENCOUNTER → 2025-06-19 00:15 | Outpatient (BNV) | payer OTHER, SELFPAY | PROVIDERS: Admitting Provider Student in an Organized Health Care Education/Training Program; Emergency Provider Emergency Medicine; Visit Provider Nurse Practitioner Psychiatric/Mental Health | DX: F10.90 Alcohol use, unspecified, uncomplicated (principal) | CPT/HCPCS: 99232 ==

== ENCOUNTER → 2025-06-19 00:15 | Outpatient (BNV) | payer MEDICAID, SELFPAY | PROVIDERS: Admitting Provider Student in an Organized Health Care Education/Training Program; Emergency Provider Emergency Medicine; Visit Provider Student in an Organized Health Care Education/Training Program | DX: J18.9 Pneumonia, unspecified organism (principal); R09.02 Hypoxemia | CPT/HCPCS: 99232; 99233 ==

== ENCOUNTER 2025-07-02 10:50 | Emergency (ER) | payer MEDICAID, SELFPAY ==
[2025-07-02] VITALS (8 sets, daily range): BP systolic 96–152; BP diastolic 39–86; PULSE 75–88; RESP 14–16; TEMP 36.3–36.8; O2SAT 82–95; BMI 20.8
--- NOTE | ~2025-07-02 | XR_ITS ---
CLINICAL HISTORY: dyspnea 1 view chest x-ray Comparison: CR - XR CHEST 1V - 06/22/25 08:17 EDT Findings: Diffuse interstitial prominence in both lungs, improved in the interval. No focal consolidation, pleural effusion or pneumothorax. The heart is within normal limits. IMPRESSION: 1. Mild diffuse interstitial prominence in both lungs, improved in the interval. May represent improving pulmonary vascular congestion/fluid overload. This document has been electronically signed by: Patito Damon MD on 07/02/2025 21:37:16
--- NOTE | 2025-07-02 12:26 | ED_ITS ---
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 He was noted by me to walk to the bathroom prior to our discussion operations and intelligence assistant to clean himself up and then walked back to the stretcher. Related Data Home Medications ?Medication ?Instructions ?Recorded ?Confirmed acetaminophen 325 mg tablet 325 mg PO Q6H PRN Migraine Headache 06/19/25 06/19/25 Previous Rx's ?Medication ?Instructions ?Recorded amoxicillin 875 mg-potassium 1 tab PO BID #9 tabs 06/13 02/04 clavulanate 125 mg tablet magnesium oxide 500 mg capsule 500 mg PO BID #90 caps 06/25/25 Allergies Allergy/AdvReac Type Severity Reaction Status Date / Time No Known Allergies (No Known Allergy Verified 07/02/25 11:25 Allergies*) Review of Systems Constitutional: Constitutional: Reports as per HPI [facility] Past Medical History Medical History Alcohol use disorder CHF (congestive heart failure) Alcohol abuse Acute hypoxemic respiratory failure Anemia Pneumonia Alcohol withdrawal syndrome Pancytopenia Alcohol abuse Thrombocytopenia Esophageal varices Acute on chronic anemia Alcoholic liver disease Aspiration pneumonia Thrombocytopenia Malnutrition CHF (congestive heart failure) Anemia Hypomagnesemia Cirrhosis Thrombocytopenia Acute on chronic anemia CHF (congestive heart failure) Anemia Alcohol abuse Surgical History No history of previous surgery Social History Social History Household Members: Unknown / Unable to assess Household Members Other:: pt lives on street Housing: Homeless Housing Other:: Homeless custodial Do you presently have visiting nurse or other home services: No Unable to assess alcohol history related to: Refusing to respond Alcohol intake: current Alcohol intake frequency: 3 or more drinks per day Alcohol type: beer and hard liquor Comment: pt refuse to have staff remain in [place] Patient Tobacco Use Status: Former Tobacco user Tobacco use type: Cigarette Smoked in Last 30 Days: Yes Second Hand Smoke Exposure: No Use of substances other than those prescribed or required for medical reasons: No Advance Directives: Yes Advance Directives on File: Yes Advance Directives Date on File: 07/13/23 Do you have a plan to hurt others: No Plan service: No Physical Exam ED Vital Signs: Vital Signs - 24 hr 07/02/25 11:22 07/02/25 11:49 07/02/25 16:15 Temperature 97.6 F 97.6 F Pulse Rate 77 77 Respiratory Rate 16 16 14 Blood Pressure 152/86 H 152/86 H Pulse Oximetry 94 94 Oxygen Delivery Method Nasal Cannula Nasal Cannula Oxygen Flow Rate 07/02/25 18:11 07/02/25 18:16 07/02/25 20:13 Temperature 97.3 F 98.1 F Pulse Rate 88 75 Respiratory Rate 16 16 Blood Pressure 111/51 L 101/52 L Pulse Oximetry 82 L 93 95 Oxygen Delivery Method Room Air Nasal Cannula Room Air Nasal Cannula Oxygen Flow Rate 3 3 07/02/25 22:21 07/02/25 22:22 07/03/25 06:49 Temperature 98.3 F 98.2 F Pulse Rate 82 78 Respiratory Rate 16 23 H Blood Pressure 99/44 L 96/39 L 123/57 L Pulse Oximetry 91 L 98 Oxygen Delivery Method Nasal Cannula Nasal Cannula Oxygen Flow Rate 2 3 BMI result Body Mass Index 20.8 Const Other: * Gen: ?I was able to arouse the patient for a physical examination * HEENT: No scleral icterus, no facial trauma, no blood in the airway * Neck: There was no bruising with tenderness along the neck no hematomas noted * CV: S1-S2 radial pulses +2 * Resp: ?No chest wall tenderness breathing comfortably no wheezing or rales no stridor * Abd: ?Bowel sounds are present, no tenderness no rebound no rigidity * MSK: I am not appreciating any decreased range of motion of the hips knees her ankles, he has no obvious edema or erythema * Skin: No jaundice, no changes to suspect underlying trauma * Neuro: Clinically intoxicated with alcohol on breath, slurring his speech well he talks without facial asymmetry and noted to be moving his upper and lower extremities symmetrically and he was noted to be walking to the bathroom and back prior to my evaluation Medical Decision Making Medical Decision Making MDM Narrative: Patient is clinically intoxicated with alcohol on breath, he however was seen by me prior to my evaluation to be ambulated to the bathroom and then back to the gurney, I was able to arouse him and examined him head-to-toe there was no obvious trauma, he has had prior leg edema dependent leg edema mostly I do not appreciate significant edema or any other trauma, did not feel there is any utility for any imaging or blood work at this time, we will re-evaluate him once he is clinically sober. He was admitted and just discharged on June 25 for similar presentation and has had multiple admissions for this , he is not interested in detox unfortunately and is slowly deteriorating. 18:50 patient ambulated to the bathroom, he ate, as he curls up on the gurney he becomes hypoxic this is something that is typical with a him when he is intoxicated in the way he sleeps and he is currently still becoming sober with nasal cannula for support 20:35 patient re-evaluated, he is 92% on nasal cannula, speaking full sentences, much more clinically sober now, I will obtain chest x-ray just to make sure there was no worsening disease process from the recent chest x-rays he has had. I received sign-out from my colleague Dr. Greer -patient had an uneventful night. Patient's vitals are stable. Patient given breakfast and is ready for discharge. Differential Diagnosis Differential Diagnoses: The differential diagnosis associated with the presentation includes (Trauma, intoxication, dehydration, end-stage liver failure) Admission/Observation Consideration of admission/observation: Escalation of care including admission/observation considered (We will determine whether the patient needs admission or further workup when he is more clinically sober) Independent Interpretation I performed an independent interpretation of an: Plain X-Ray (Improvement of his consolidations) Independent Historian Clinical information obtained from an independent historian. History obtained from or confirmed by: EMS Tests considered The following testing was considered but not selected: EKG, blood work, CT brain, CT cervical spine Chronic Conditions Patient?s care impacted by: Other Alcohol use disorder Social Determinants Patient?s care significantly limited by Social Determinants of Health including: Other Social Determinant of Health (Alcohol use disorder) Critical Care Time Critical Care Time Critical Care Time: Yes Total Critical Care Time: 35 Attestation: Please follow-up with your primary care physician tomorrow. If you have any worsening or new symptoms, please return to the emergency room or call 911 Discharge Plan Discharge Clinical Impression: Alcohol use disorder Patient Disposition: Home, Self-Care Instructions: Alcohol Intoxication (ED) Additional Instructions: Alcohol use disorder You were seen in the Emergency Department today for treatment of alcohol use disorder.? You may have been given medications to help with your withdrawal symptoms.? Please do not drink alcohol with them. This is very dangerous and can cause respiratory depression or other adverse reactions depending on the medication. If you would like to cut down or stop your alcohol use please consider calling our outpatient Addiction Treatment office:? [facility] (M-F 9a-5p) [address] [place] [address] [address] You have also been given a list of treatment providers in the area that can assist as well.? If you experience seizures, vomiting blood, black stools, falls, severe headache, chest pain, fevers, trouble breathing, hallucinations or any other concerns you need to call 911 or seek immediate care. Please stay hydrated. Prescriptions: No Action acetaminophen 325 mg Tablet 325 mg PO Q6H PRN (Reason: Migraine Headache) amoxicillin-pot clavulanate 875-125 mg tablet 1 tab PO BID Qty: 9 0RF Rx Instructions: Take one tablet twice a day with food for the next 4 days. Begin taking the evening of 06/25 and finish on 06/29. Complete whole course of antibiotics magnesium oxide 500 mg capsule 500 mg PO BID Qty: 90 0RF Rx Instructions: Take one capsule twice a day Print Language: Turkish
--- OUTSIDE RECORDS SUMMARY | 2025-07-02 12:48 | XMS_ITS | Encounter Summary ---
Author Organization [facility] Address [address] [place] [phone] Phone Care Team Providers Care [facility] Name Role Phone [facility], [facility] Primary Care Provider Pcp, Unknown Unavailable Unavailable Encounter Details Date Type Department Care Team ([facility] st Contact Info) Description 10/31/2023 Procedure Pass [facility] Endoscopy Admitting Dept Virtual Department [address] [place] [id number] Social History Tobacco Use Types Packs/Day Years [...] on filedocumented in this encounter Care Teams [facility] Relationship Specialty Start Date End Date [facility] [address] [place] [address] PCP - General 10/07/23 Pcp, Unknown 10/07/23 documented as of this encounter Additional Source Comments The information contained in this document represents components of the legal health record. It is not the complete legal health record.[facility]
--- OUTSIDE RECORDS SUMMARY | 2025-07-02 12:48 | XMS_ITS | Encounter Summary ---
Author Organization [facility] Address [address] [place] [address] [place] [address] Care Team Providers Care Associate Professor Of Biostatistics Name Role Phone Missy Milner RN Unavailable [phone] Conor Vidal Unavailable Encounter Details Date Type Department Care Team ([facility] st Contact Info) Description 06/09/2025 Results Follow-Up [facility] [address] [place] [address] Provider, Generic External Data XR Chest 1 [...] on filedocumented in this encounter Care Teams Associate Professor Of Biostatistics Relationship Specialty Start Date End Date Missy Milner RN [address] [place] [address] Registered Nurse Family Medicine 04/23/25 Conor Vidal 04/23/25 documented as of this encounter
--- NOTE | 2025-07-02 22:25 | PC.NURSE ---
MD Sweeney aware of BP.
[2025-07-03 06:49] VITALS: BP 123/57; PULSE 78; RESP 23; TEMP 36.8; O2SAT 98
[2025-07-03 08:52] VITALS: BP 123/57; PULSE 78; RESP 23; TEMP 36.8; O2SAT 98
== END 2025-07-03 08:53 | disposition home or self-care (01) ==
PROVIDERS: Emergency Provider Emergency Medicine
DX: F10.129 Alcohol abuse with intoxication, unspecified (principal); M79.606 Pain in leg, unspecified; R19.7 Diarrhea, unspecified; I50.9 Heart failure, unspecified; K70.30 Alcoholic cirrhosis of liver without ascites; D69.6 Thrombocytopenia, unspecified; Z72.0 Tobacco use
CPT/HCPCS: 71045; 99283; 99284

== ENCOUNTER → 2025-07-02 20:39 | Outpatient (BNV) | payer MEDICAID, SELFPAY | PROVIDERS: Emergency Provider Emergency Medicine; Visit Provider Student in an Organized Health Care Education/Training Program | DX: R06.00 Dyspnea, unspecified (principal) | CPT/HCPCS: 71045 ==

== ENCOUNTER 2025-07-03 21:22 | Emergency (ER) | payer MEDICAID, SELFPAY ==
[2025-07-03 21:26] VITALS: BP 122/54; BP 123/55; PULSE 74; PULSE 76; RESP 17; TEMP 37.1; O2SAT 92; O2SAT 94; BMI 23.5
--- NOTE | 2025-07-03 22:20 | PC.NURSE ---
pt biba from [employer], a&ox4, respirations even and unlabored. pt reports left knee pain increased with ambulation. 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 pt changed be security, belongings placed in [place] port shelf 3
--- NOTE | 2025-07-03 23:08 | ED_ITS ---
HPI - Alcohol General Chief Complaint: Extremity Injury, Lower Stated Complaint: Etoh, n/v/d, leg swelling (chronic) Time Seen by Provider: 07/03/25 22:03 Source: patient and EMS Mode of arrival: EMS Limitations: no limitations History of Present Illness ED Provider: Dr. Alexandria Sweeney HPI narrative: Patient comes to the emergency room via ambulance. Patient was found outside [employer] intoxicated. Patient denies any falls or any injuries. Patient states that he has his usual chronic pain in his knees and ankles but nothing new. Patient reports taking 3 beers and 1 pt of vodka. Patient denies any falls, no head injuries. Denies SI or HI Related Data Home Medications ?Medication ?Instructions ?Recorded ?Confirmed acetaminophen 325 mg tablet 325 mg PO Q6H PRN Migraine Headache 06/19/25 06/19/25 Previous Rx's ?Medication ?Instructions ?Recorded amoxicillin 875 mg-potassium 1 tab PO BID #9 tabs 06/13 02/04 clavulanate 125 mg tablet magnesium oxide 500 mg capsule 500 mg PO BID #90 caps 06/25/25 Allergies Allergy/AdvReac Type Severity Reaction Status Date / Time No Known Allergies (No Known Allergy Verified 07/03/25 21:34 Allergies*) Review of Systems Review of Systems: Constitutional : No Weight loss, No Fever, No Chills, No Night Sweats, No Fatigue, No Malaise ENT/Mouth : No Hearing loss, No Ear Pain, No Nasal Congestion, No Sinus Pain, No Hoarseness, No sore throat, No Rhinorrhea, No Swallowing Difficulty Eyes: No Eye Pain, No Swelling, No Redness, No Foreign Body, No Discharge, No Vision Changes Cardiovascular : No Chest Pain, No SOB, No Dyspnea on Exertion, No Orthopnea, No Edema, No Palpitations Respiratory : No Cough, No Sputum, No Wheezing, No Smoke Exposure, No Dyspnea Gastrointestinal : No Nausea, No Vomiting, No Diarrhea, No Constipation, No abdominal Pain, No Hematochezia, No Melena Genitourinary : no irregular bleeding, No Dysuria, No Urinary Frequency, No Hematuria, No Urinary Incontinence, No Urgency, No Flank Pain, No Urinary Flow Changes, No Hesitancy Musculoskeletal : Complaining of chronic bilateral knee pain and ankle pain No Myalgias, No Joint Swelling Skin : No Skin Lesions, No rash Neuro : No Weakness, No Numbness, No Paresthesias, No Loss of Consciousness, No Dizziness, No Headache Psych : No Anxiety/Panic, No Depression, No SI/HI/AH/VH, admits to alcohol abuse dependence and intoxication Heme/Lymph: No Bruising, No Bleeding,No Lymphadenopathy Endocrine : No Polyuria, No Polydipsia, No Temperature Intolerance [facility] Past Medical History Medical History Alcohol use disorder CHF (congestive heart failure) Alcohol abuse Acute hypoxemic respiratory failure Anemia Pneumonia Alcohol withdrawal syndrome Pancytopenia Alcohol abuse Thrombocytopenia Esophageal varices Acute on chronic anemia Alcoholic liver disease Aspiration pneumonia Thrombocytopenia Malnutrition CHF (congestive heart failure) Anemia Hypomagnesemia Cirrhosis Thrombocytopenia Acute on chronic anemia CHF (congestive heart failure) Anemia Alcohol abuse Surgical History No history of previous surgery Social History Social History Household Members: Unknown / Unable to assess Household Members Other:: pt lives on street Housing: Homeless Housing Other:: Homeless snf Do you presently have visiting nurse or other home services: No Unable to assess alcohol history related to: Refusing to respond Alcohol intake: current Alcohol intake frequency: 3 or more drinks per day Alcohol type: beer and hard liquor Comment: pt refuse to have staff remain in [place] Patient Tobacco Use Status: Former Tobacco user Tobacco use type: Cigarette Second Hand Smoke Exposure: No Advance Directives: Yes Advance Directives on File: Yes Advance Directives Date on File: 07/13/23 Do you have a plan to hurt others: No Plan service: No Physical Exam ED Exam Exam: Appearance: Alert. Oriented X3. No acute distress. Seems intoxicated, answering questions appropriately, no signs of trauma Eyes: Pupils equal, round and reactive to light. ENT: Pharynx normal. Neck: Normal inspection. Neck supple. No lymph nodes noted. No crepitus CVS: Normal heart rate and rhythm. Pulses normal. Normal S1 and S2 Respiratory: No respiratory distress. Breath sounds normal. No Wheezing. No rales Abdomen: Soft and nontender. No rigidity. No distention. Skin: Skin warm and dry. Normal skin color. Normal skin turgor. Extremities: No lower extremity edema. No Lacerations. No Rash Neuro: Oriented X 3. No motor deficit. No sensory deficit. Moving all extremities. No slurred speech. CN 2 through 12 grossly intact Psych: calm, cooperative, intoxicated Vital Signs: Vital Signs - 24 hr 07/03/25 21:26 Temperature 98.7 F Pulse Rate 74 Respiratory Rate 17 Blood Pressure 123/55 L Pulse Oximetry 92 Oxygen Delivery Method Nasal Cannula BMI result Body Mass Index 23.5 Course Course Course Narrative: Patient has no complaints other than alcohol intoxication, no new injuries Patient very well known to the emergency department. At night, patient uses oxygen, patient will be prophylactically placed in 3 L of O2 Patient states that he does not want detox Plan: Metabolize to freedom and discharged in the morning Physician observation started at 22:00 Discharge Plan Discharge Clinical Impression: Alcohol intoxication Prescriptions: No Action acetaminophen 325 mg Tablet 325 mg PO Q6H PRN (Reason: Migraine Headache) amoxicillin-pot clavulanate 875-125 mg tablet 1 tab PO BID Qty: 9 0RF Rx Instructions: Take one tablet twice a day with food for the next 4 days. Begin taking the evening of 06/25 and finish on 06/29. Complete whole course of antibiotics magnesium oxide 500 mg capsule 500 mg PO BID Qty: 90 0RF Rx Instructions: Take one capsule twice a day Print Language: Sammarinese
[2025-07-04 01:16] VITALS: BP 110/78; PULSE 63; RESP 14; TEMP 36.6; O2SAT 95
--- NOTE | 2025-07-04 04:51 | PC.NURSE ---
resting quietly with even and unlabored respirations
[2025-07-04 06:59] VITALS: BP 124/74; PULSE 87; RESP 15; TEMP 36.9; O2SAT 98
[2025-07-04 07:19] VITALS: BP 124/74; PULSE 87; RESP 15; TEMP 36.9; O2SAT 98
== END 2025-07-04 07:28 | disposition home or self-care (01) ==
PROVIDERS: Emergency Provider Emergency Medicine
DX: R60.0 Localized edema (principal); M25.562 Pain in left knee; M25.561 Pain in right knee; F10.129 Alcohol abuse with intoxication, unspecified; Y90.9 Presence of alcohol in blood, level not specified; Z79.899 Other long term (current) drug therapy; Z87.891 Personal history of nicotine dependence
CPT/HCPCS: 99284

== ENCOUNTER 2025-07-06 17:25 | Emergency (ER) | payer MEDICAID, SELFPAY ==
--- NOTE | ~2025-07-06 | XR_ITS ---
CLINICAL HISTORY: hypoxia 1 view chest x-ray Comparison: CR - XR CHEST 1V - 07/02/25 20:44 EDT Findings: There is increased vascular prominence and increased reticular lung opacities in comparison to prior. No effusion or pneumothorax. Heart is mildly enlarged. No acute fracture. IMPRESSION: Increased interstitial lung markings and vascular prominence suggesting pulmonary edema /CHF. This document has been electronically signed by: Brandt Johnson MD on 07/06/2025 19:16:26
[2025-07-06 17:37] VITALS: BP 112/74; BP 124/79; PULSE 86; PULSE 88; RESP 17; TEMP 36.7; O2SAT 92; O2SAT 93; BMI 21.5
--- NOTE | 2025-07-06 17:38 | ECG_ITS ---
Test Reason : SOB Blood Pressure : */* mmHG Vent. Rate : 76 BPM Atrial Rate : 76 BPM P-R Int : 162 ms QRS Dur : 94 ms QT Int : 430 ms P-R-T Axes : 56 7 15 degrees QTcB Int : 483 ms Normal sinus rhythm Prolonged QT Abnormal ECG When compared with ECG of 18-Jun-2025 21:28, No significant change was found Referred By: Maryann Cee Electronically Signed By: EDITA HALE
--- OUTSIDE RECORDS SUMMARY | 2025-07-06 17:52 | XMS_ITS | Encounter Summary ---
Author Organization [employer] Address [address] [place] [address] [place] [address] Care Team Providers Care Research Spec Name Role Phone Missy Milner RN Unavailable [phone] YoungConor Unavailable Encounter Details Date Type Department Care Team (Late st Contact Info) Description 07/02/[address] Orders Only [facility] External Provider, [facility] Social History Tobacco Use Types Packs/Day [...] Diagnosis Comments XR CHEST 1 VIEW Routine 07/02/2025 9:37 PM EDT documented in this encounter Results * XR Chest 1 View (07/02/2025 9:37 PM EDT) Anatomical Region Laterality Modality Chest Radiographic Lamar ging 07/02/2025 9:37 PM EDT Narrative 07/02/2025 9:38 PM EDT [address] [address] XRay Report Signed Patient: Charbel Delgado MR#: [id number] : 1970 Acct:[id number] Age/Sex: 55 / M ADM Date: 07/02/25 Loc: .ED Attending Dr: Ordering Physician: Beck Greer DO Date of Service: 07/02/25 Procedure(s): XR chest 1V Accession Number(s): [id number] cc: [facility]; Beck Greer DO CLINICAL HISTORY: dyspnea 1 view chest x-ray Comparison: CR - XR CHEST 1V - 06/22/25 08:17 EDT Findings: Diffuse interstitial prominence in both lungs, improved in the interval. No focal consolidation, pleural effusion or pneumothorax. The heart is within normal limits. IMPRESSION: 1. Mild diffuse interstitial prominence in both lungs, improved in the interval. May represent improving pulmonary vascular congestion/fluid overload. This document has been electronically signed by: Patito Damon MD on 07/02/2025 21:37:16 Dictated By: Patito Damon MD Signed By: <Electronically signed by Patito Damon MD in OV> 07/02/252136 DD/ 36 TD/TT: 07/02/252136 Auditing Control Clerk: Procedure Note Donotuseinterpreter, Image - 07/02/2025 [place] [address] XRay Report Signed Patient: Isaias Delgado#: [id number] : 1970Acct:[id number] Age/Sex: 55 / MADM Date: 07/02/25 Loc: .ED Attending Dr: Ordering Physician: Beck Greer DO Date of Service: 07/02/25 Procedure(s): XR chest 1V Accession Number(s): [id number] cc: [facility]; Beck Greer DO CLINICAL HISTORY: dyspnea 1 view chest x-ray Comparison: CR - XR CHEST 1V - 06/22/25 08:17 EDT Findings: Diffuse interstitial prominence in both lungs, improved in the interval. No focal consolidation, pleural effusion or pneumothorax. The heart is within normal limits. IMPRESSION: 1. Mild diffuse interstitial prominence in both lungs, improved in the interval. May represent improving pulmonary vascular congestion/fluid overload. This document has been electronically signed by: Patito Damon MD on 07/02/2025 21:37:16 Dictated By: Patito Damon MD Signed By: <Electronically signed by Patito Damon MD in OV> 07/02/252136 DD/ 36 TD/TT: 07/02/252136 Auditing Control Clerk: [facility] External Provider IMG XR PROCEDURES Edited Result - Final documented in this encounter Visit Diagnoses Not on filedocumented in this encounter Care Teams Research Spec Relationship Specialty Start Date End Date Missy Milner RN [address] [place] [address] Registered Nurse Family Medicine 04/23/25 Conor Vidal 04/23/25 documented as of this encounter
[2025-07-06 18:08] LABS: MANUAL DIFF FLAG NO
[2025-07-06 18:09] LABS: Hematocrit 29.9 % (42.0-52.0); Hemoglobin 9.9 g/dl (14.0-18.0); Imm Gran Abs Auto 0.02 X10*3/uL (0.00-0.03); Imm Gran Pct Auto 0.5 % (0.0-0.4); Lymphocytes Absolute Auto 1.2 X10*3/uL (1.2-4.9); Mean Corpuscular HGB Conc 33.1 g/dl (31.0-36.0); Mean Corpuscular Hemoglobin 31.0 pg (27.0-33.0); Mean Corpuscular Volume 93.7 fL (80.0-98.0); NRBC Abs Auto 0.000 X10*3/uL (0.0-0.012); NRBC Pct Auto 0.0 /100WBC (0.0-0.2); Red Blood Count 3.19 X10*6/uL (4.60-5.80); White Blood Count 3.8 X10*3/uL (4.8-10.8)
[2025-07-06 18:11] LABS: Platelet Count 60 X10*3/uL (160-400)
[2025-07-06 18:22] LABS: Alanine Aminotransferase 11 U/L (0-40); Albumin Level 3.5 g/dL (3.5-5.0); Alkaline Phosphatase 158 U/L (39-117); Anion Gap 17 (12-20); Aspartate Amino Transferase 51 U/L (5-37); Blood Urea Nitrogen 10 mg/dL (9-16); Calcium 8.1 mg/dL (8.4-10.2); Carbon Dioxide 18 mmol/L (22-29); Chloride 112 mmol/L (96-108); Creatinine Clr Calc Pharmacy 69.6; Estimated Glomerular Filt Rate > 60; Potassium 3.6 mmol/L (3.3-5.1); Sodium 143 mmol/L (135-145); Total Protein 8.0 g/dL (6.5-8.0)
[2025-07-06 18:26] LABS: Cannabinoid Screen Urine Not Detected (Not Detect)
[2025-07-06 18:28] LABS: B Type Natriuretic Peptide 100 pg/mL (<100)
[2025-07-06 18:31] LABS: Troponin-I High Sensitivity < 2.7 ng/L (<3.5-35.0)
[2025-07-06 22:30] VITALS: O2SAT 86
[2025-07-06 22:31] VITALS: O2SAT 93
[2025-07-06 23:12] VITALS: BP 103/59
[2025-07-06] MEDS: Furosemide 40 MG/4 ML VIAL IVPUSH (23:12)
--- NOTE | 2025-07-06 23:13 | PC.NURSE ---
pt denies complaints. briefly protested IV and lasix t consented. lying supine in bed, eyes closed, normal WOB. SpO2 91% on 3L NC. MADISON Rankin aware
[2025-07-07 00:30] VITALS: BP 102/59; PULSE 94; RESP 12; TEMP 36.6; O2SAT 92
--- NOTE | 2025-07-07 00:32 | ED_ITS ---
HPI - General Adult General Chief complaint: ETOH/Substance Use Stated complaint: ETOH 82% RA Time Seen by Provider: 07/06/25 19:33 Source: patient Limitations: no limitations History of Present Illness ED Provider: Trudy Brannon PA-C HPI narrative: 55 y/o M with hx of alcohol use disorder with alcoholic cirrhosis, gastroesophageal reflux disease, congestive heart failure with preserved ejection fraction who presents intoxicated. Patient [place] [address] [place]. Patient incidentally found to be hypoxic 86% on room air. History limited as the patient is intoxicated. Related Data Home Medications ?Medication ?Instructions ?Recorded ?Confirmed acetaminophen 325 mg tablet 325 mg PO Q6H PRN Migraine Headache 06/19/25 06/19/25 Previous Rx's ?Medication ?Instructions ?Recorded amoxicillin 875 mg-potassium 1 tab PO BID #9 tabs 06/13 02/04 clavulanate 125 mg tablet magnesium oxide 500 mg capsule 500 mg PO BID #90 caps 06/25/25 Allergies Allergy/AdvReac Type Severity Reaction Status Date / Time No Known Allergies (No Known Allergy Verified 07/06/25 17:41 Allergies*) Review of Systems 2 Review of Systems: Unable to obtain secondary to intoxication Yes all other systems are reviewed and are negative PMFSH Past Medical History Attestation statement: The following information was validated with the patient. Medical History Alcohol use disorder CHF (congestive heart failure) Alcohol abuse Acute hypoxemic respiratory failure Anemia Pneumonia Alcohol withdrawal syndrome Pancytopenia Alcohol abuse Thrombocytopenia Esophageal varices Acute on chronic anemia Alcoholic liver disease Aspiration pneumonia Thrombocytopenia Malnutrition CHF (congestive heart failure) Anemia Hypomagnesemia Cirrhosis Thrombocytopenia Acute on chronic anemia CHF (congestive heart failure) Anemia Alcohol abuse Surgical History No history of previous surgery Social History Social History Household Members: Unknown / Unable to assess Household Members Other:: pt lives on street Housing: Homeless Housing Other:: Homeless half-way Do you presently have visiting nurse or other home services: No Unable to assess alcohol history related to: Refusing to respond Alcohol intake: current Alcohol intake frequency: 3 or more drinks per day Alcohol type: beer and hard liquor Comment: pt refuse to have staff remain in [place] Patient Tobacco Use Status: Former Tobacco user Tobacco use type: Cigarette Smoked in Last 30 Days: Yes Second Hand Smoke Exposure: No Use of substances other than those prescribed or required for medical reasons: No Advance Directives: Yes Advance Directives on File: Yes Advance Directives Date on File: 07/13/23 Do you have a plan to hurt others: No Plan service: No Physical Exam ED Vital Signs: Vital Signs - 24 hr 07/06/25 17:37 07/06/25 22:30 07/06/25 22:31 Temperature 98.1 F Pulse Rate 86 Respiratory Rate 17 Blood Pressure 124/79 Pulse Oximetry 92 86 L 93 Oxygen Delivery Method Nasal Cannula Room Air Nasal Cannula Oxygen Flow Rate 2 07/06/25 23:12 07/07/25 00:30 07/07/25 02:38 Temperature 97.9 F 98.4 F Pulse Rate 94 76 Respiratory Rate 12 13 Blood Pressure 103/59 L 102/59 L 99/52 L Pulse Oximetry 92 93 Oxygen Delivery Method Nasal Cannula Nasal Cannula Oxygen Flow Rate 2 2 BMI result Body Mass Index 21.5 Const Other: Awake Orientation/consciousness: patient oriented x3 Resp Other: Basilar crackles noted no wheezing Cardio Other: Normal peripheral perfusion, trace pedal edema Skin Other: Warm dry no rash Neuro General: patient oriented x3, gait normal, no focal motor deficits and CN's II- XI intact bilaterally Psych Other: Cooperative, intoxicated Course Reevaluation(s) Reevaluation #1: He has been diuresing overnight, Oxygen now normal at 94% on room air Time: 03:30 Medications Administered Discontinued Medications Generic Name Dose Route Start Last Admin Trade Name Freq PRN Reason Stop Dose Admin Furosemide 40 mg 07/06/25 22:22 07/06/25 23:12 Furosemide 40 Mg/4 Ml Vial IVPUSH 07/06/25 22:23 40 mg ONCE ONE Administration Protocol Medical Decision Making Medical Decision Making MDM Narrative: 55 y/o M with hx of alcohol use disorder with alcoholic cirrhosis, gastroesophageal reflux disease, congestive heart failure with preserved ejection fraction who presents intoxicated. Patient was [place] [address] by EMS. Patient incidentally found to be hypoxic 86% on room air. History limited as the patient is intoxicated. Problem: Heart failure, alcohol use disorder, cirrhosis, housing and security History: Per patient which is limited primarily by EMS I have considered the following differential diagnoses: Intoxication, pneumonia, viral syndrome, heart failure exacerbation Plan: We will be screening basic labs including troponin and BNP, it is suspect that he has an active heart failure now. I can hear crackles on exam, however he only has trace pedal edema. We will add on an ethanol. To our knowledge she does not have any infectious symptoms at this time, he is afebrile as well. Labs: No leukocytosis, stable anemia, no electrolyte abnormality other than subtly low calcium, troponin less than 2.7, BNP 100 ethanol 399 EKG: Normal sinus rhythm, rate of 76, QTC 483, no ischemic changes no ectopy Chest x-ray:Findings: There is increased vascular prominence and increased reticular lung opacities in comparison to prior. No effusion or pneumothorax. Heart is mildly enlarged. No acute fracture. IMPRESSION: Increased interstitial lung markings and vascular prominence suggesting pulmonary edema /CHF. Lab Data 07/06/25 17:58 07/06/25 17:58 Labs: Lab Results 07/06/25 07/06/25 Range/Units 17:58 18:08 WBC 3.8 L (4.8-10.8) X10*3/uL RBC 3.19 L (4.60-5.80) X10*6/uL Hgb 9.9 L (14.0-18.0) g/dl Hct 29.9 L (42.0-52.0) % MCV 93.7 (80.0-98.0) fL MCH 31.0 (27.0-33.0) pg MCHC 33.1 (31.0-36.0) g/dl RDW 17.9 H (11.0-16.0) % Plt Count 60 L D (160-400) X10*3/uL MPV 11.8 (9.4-12.4) fL Immature Gran % (Auto) 0.5 H (0.0-0.4) % Neut % (Auto) 55.0 (45-73) % Lymph % (Auto) 30.6 (20-40) % [place] % (Auto) 8.8 (2-11) % Eos % (Auto) 3.5 (0-4) % Baso % (Auto) 1.6 (0-2) % Lymph # (Auto) 1.2 (1.2-4.9) X10*3/uL [place] # (Auto) 0.3 (0.1-1.2) X10*3/uL Eos # (Auto) 0.1 (0.0-0.4) X10*3/uL Baso # (Auto) 0.1 (0.0-0.2) X10*3/uL Abs Immat Gran (auto) 0.02 (0.00-0.03) X10*3/uL Absolute Neuts (auto) 2.1 (2.0-8.3) x10*3/uL Absolute Nucleated RBC 0.000 (0.0-0.012) X10*3/uL Nucleated RBC % (auto) 0.0 (0.0-0.2) /100WBC Sodium 143 (135-145) mmol/L Potassium 3.6 D (3.3-5.1) mmol/L Chloride 112 H (96-108) mmol/L Carbon Dioxide 18 L (22-29) mmol/L Anion Gap 17 (12-20) BUN 10 (9-16) mg/dL Creatinine 0.95 (0.5-1.4) mg/dL Estim Creat Clear Calc 69.6 Estimated GFR > 60 Random Glucose 110 (60-115) mg/dL Calcium 8.1 L D (8.4-10.2) mg/dL Total Bilirubin 0.6 (0.0-1.0) mg/dL AST 51 H (5-37) U/L ALT 11 (0-40) U/L Alkaline Phosphatase 158 H (39-117) U/L Troponin I High Sens < 2.7 (<3.5-35.0) ng/L B-Natriuretic Peptide 100 (<100) pg/mL Total Protein 8.0 (6.5-8.0) g/dL Albumin 3.5 (3.5-5.0) g/dL Urine Opiates Screen Not Detected (Not Detect) Ur Buprenorphine Scrn Not Detected (Not Detect) ng/mL Ur Oxycodone Screen Not Detected (Not Detect) ng/mL Urine Methadone Screen Not Detected (Not Detect) ng/mL Urine Fentanyl Screen Not Detected (Not Detect) Ur Barbiturates Screen POSITIVE H (Not Detect) Ur Phencyclidine Scrn Not Detected (Not Detect) Ur Amphetamines Screen Not Detected (Not Detect) U Benzodiazepines Scrn Not Detected (Not Detect) Urine Cocaine Screen Not Detected (Not Detect) U Marijuana (THC) Screen Not Detected (Not Detect) Ethyl Alcohol 399 H* mg/dL Discharge Plan Discharge Clinical Impression: Pulmonary edema, Alcoholic intoxication Patient Disposition: Home, Self-Care Instructions: Alcohol Intoxication (ED), Pulmonary Edema (ED) Additional Instructions: You were found to be intoxicated, you were monitored overnight in the emergency room until you were clinically sober. The chest x-ray revealed that you had congestion in your lungs. You need to take your Lasix as directed to prevent the congestion in your lungs. Prescriptions: No Action acetaminophen 325 mg Tablet 325 mg PO Q6H PRN (Reason: Migraine Headache) amoxicillin-pot clavulanate 875-125 mg tablet 1 tab PO BID Qty: 9 0RF Rx Instructions: Take one tablet twice a day with food for the next 4 days. Begin taking the evening of 06/25 and finish on 06/29. Complete whole course of antibiotics magnesium oxide 500 mg capsule 500 mg PO BID Qty: 90 0RF Rx Instructions: Take one capsule twice a day Print Language: Togolese
[2025-07-07 02:38] VITALS: BP 99/52; PULSE 76; RESP 13; TEMP 36.9; O2SAT 93
[2025-07-07 03:40] VITALS: BP 113/59; PULSE 77; RESP 16; TEMP 36.9; O2SAT 94
[2025-07-07 04:00] VITALS: BP 113/59; PULSE 77; RESP 16; TEMP 36.9; O2SAT 94
== END 2025-07-07 07:14 | disposition home or self-care (01) ==
PROVIDERS: Physician Assistant; Emergency Provider Emergency Medicine
DX: J81.1 Chronic pulmonary edema (principal); F10.129 Alcohol abuse with intoxication, unspecified; Y90.8 Blood alcohol level of 240 mg/100 ml or more; K70.30 Alcoholic cirrhosis of liver without ascites; K21.9 Gastro-esophageal reflux disease without esophagitis; I50.20 Unspecified systolic (congestive) heart failure
CPT/HCPCS: 36415; 71045; 80053; 80307; 83880; 84484; 85025; 93005; 96374; 99285; J1938

== ENCOUNTER → 2025-07-06 17:38 | Outpatient (BNV) | payer MEDICAID, SELFPAY | PROVIDERS: Emergency Provider Emergency Medicine; Visit Provider Internal Medicine | DX: R94.31 Abnormal electrocardiogram [ECG] [EKG] (principal); R06.02 Shortness of breath | CPT/HCPCS: 93010 ==

== ENCOUNTER → 2025-07-06 17:38 | Outpatient (BNV) | payer MEDICAID, SELFPAY | PROVIDERS: Visit Provider Radiology Diagnostic Radiology | DX: R09.02 Hypoxemia (principal) | CPT/HCPCS: 71045 ==

== ENCOUNTER 2025-07-11 16:01 | Emergency (ER) | payer MEDICAID, SELFPAY ==
--- NOTE | 2025-07-11 16:08 | ED.OVERDOSE ---
HPI - Overdose General Chief Complaint: ETOH/Substance Use Stated Complaint: etoh Time Seen by Provider: 07/11/25 16:04 History of Present Illness ED Provider: shameka HPI Narrative: Chronic ETOH use disorder patient found on the street intoxicated. Denies traumatic injuries or any other complaints. 88% sat on arrival with EMS though arrival saturation documented as 94% here without supplemental oxygen documented. Related Data Home Medications ?Medication ?Instructions ?Recorded ?Confirmed No Known Home Meds 07/13/25 07/13/25 Allergies Allergy/AdvReac Type Severity Reaction Status Date / Time No Known Allergies (No Known Allergy Verified 07/12/25 21:41 Allergies*) [facility] Past Medical History Medical History Alcohol use disorder CHF (congestive heart failure) Alcohol abuse Acute hypoxemic respiratory failure Anemia Pneumonia Alcohol withdrawal syndrome Pancytopenia Alcohol abuse Thrombocytopenia Esophageal varices Acute on chronic anemia Alcoholic liver disease Aspiration pneumonia Thrombocytopenia Malnutrition CHF (congestive heart failure) Anemia Hypomagnesemia Cirrhosis Thrombocytopenia Acute on chronic anemia CHF (congestive heart failure) Anemia Alcohol abuse Surgical History No history of previous surgery Social History Social History Household Members: None Household Members Other:: homeless Housing: Other Housing Other:: homeless Do you presently have visiting nurse or other home services: No Unable to assess alcohol history related to: Unable to respond Alcohol intake: current Alcohol intake frequency: 3 or more drinks per day Alcohol type: beer and hard liquor Comment: pt refuse to have staff remain in [place] Patient Tobacco Use Status: Former Tobacco user Tobacco use type: Cigarette Second Hand Smoke Exposure: No Have you been hit, kicked, punched, or otherwise hurt by someone within the past year? If so, by whom?: No Do you feel safe in your current relationship?: No Current Relationship Is there a partner from a previous relationship who is making you feel unsafe now?: No Are you made to feel afraid or neglected: No Advance Directives: Yes Advance Directives on File: Yes Advance Directives Date on File: 07/13/23 Do you have a plan to hurt others: No Plan Recently lost weight without trying: No Nutrition Risks: No Nutritional Risk Poor oral hygiene: No service: No Physical Exam Exam: Exam: Appearance: Alert. Intoxicated slurred speech Eyes: Pupils equal, round and reactive to light. ENT: Pharynx normal. Neck: Normal inspection. Neck supple. CVS: Normal heart rate and rhythm. Pulses normal. Respiratory: No respiratory distress. Breath sounds normal. Abdomen: Soft and nontender. Skin: Skin warm and dry. Normal skin color. Normal skin turgor. Extremities: No lower extremity edema. No calf ttp . Mild tenderness of the bilateral joints without effusion or deformity Neuro: No obvious focal deficits or facial asymmetry or ataxia Vital Signs: Vital Signs: Last Vital Signs Temp 98.0 F 07/12/25 06:57 Pulse 78 07/12/25 06:57 Resp 20 07/12/25 06:57 BP 123/62 07/12/25 06:57 Pulse Ox 94 07/12/25 06:57 O2 Del Method Room Air 07/12/25 06:57 O2 Flow Rate 2 07/12/25 05:09 Oxygen Flow Rate 3 07/11/25 16:14 BMI result Body Mass Index 19.4 Course Reevaluation(s) Reevaluation #1: Dr. Ferguson: The patient is a 55-year-old male who was signed out to me at change of shift by the previous emergency physician. The patient is an alcoholic who is in the emergency room extremely frequently for intoxication. He was passed out from alcohol. He slept in the emergency room during almost all of the overnight shift and this morning he walked out of the emergency room. He apparently seemed reasonably steady on his feet and was very eager to leave. He walked out before receiving discharge instructions. Time: 06:53 Medical Decision Making Medical Decision Making MDM Narrative: 55-year-old male with chronic alcohol use disorder. No evidence of trauma. Possibly hypoxia in the field but here 94%. No complaints or traumatic injuries we will let the patient sober up and reassess Discharge Plan Discharge Clinical Impression: Alcoholic intoxication Patient Disposition: Home, Self-Care Instructions: Abuse of Alcohol (ED) Prescriptions: No Action No Known Home Meds Interventions: ED Discharge Assessment Last Done: 07/12/25 06:57 Discharge Date/Time: 07/12/25 06:58 Print Language: Somali
[2025-07-11 16:14] VITALS: BP 107/53; BP 115/70; PULSE 80; PULSE 82; RESP 21; TEMP 36.7; O2SAT 88; O2SAT 98; BMI 19.4
--- OUTSIDE RECORDS SUMMARY | 2025-07-11 16:27 | XMS_ITS | Encounter Summary ---
Author Organization [facility] Address [address] [facility] [address] [place] [phone] Phone Care Team Providers Care Senior Financial Accountant Name Role Phone [facility] [place] Primary Care Provider Pcp, Unknown Unavailable Unavailable Encounter Details Date Type Department Care Team ([facility] st Contact Info) Description 10/31/2023 Procedure Pass [facility] Endoscopy Admitting Dept Virtual Department [address] [place] [id number] Social History Tobacco Use Types Packs/Day Years [...] on filedocumented in this encounter Care Teams Senior Financial Accountant Relationship Specialty Start Date End Date [facility] [place] [address] [place] [address] PCP - General 10/07/23 Pcp, Unknown 10/07/23 documented as of this encounter Additional Source Comments The information contained in this document represents components of the legal health record. It is not the complete legal health record.[facility]
--- OUTSIDE RECORDS SUMMARY | 2025-07-11 16:27 | XMS_ITS | Encounter Summary ---
Author Organization [facility] Address [address] [facility] [address] [place] [phone] Phone Care Team Providers Care Communication Professor Name Role Phone Elbert Hayward MD Primary Care Provider [facility], [facility] Primary Care Provider Pcp, Unknown Unavailable Unavailable Encounter Details Date Type Department Care Team (Late st Contact Info) Description 10/06/2023 Procedure Pass [facility], Ct Scan - [address] [address] Social History Tobacco Use Types Packs/Day Years [...] on filedocumented in this encounter Care Teams Communication Professor Relationship Specialty Start Date End Date Elbert Hayward MD PCP - General 05/13/14 10/06/23 [facility], MD Marya [address] [place] [address] PCP - General 10/07/23 Pcp, Unknown 10/07/23 documented as of this encounter Additional Source Comments The information contained in this document represents components of the legal health record. It is not the complete legal health record.[facility]
--- OUTSIDE RECORDS SUMMARY | 2025-07-11 16:27 | XMS_ITS | Encounter Summary ---
Author Organization [employer] Address [address] [place] [address] [place] [address] Care Team Providers Care Spot Facer Name Role Phone Missy Milner RN Unavailable [phone] Conor Vidal Unavailable Encounter Details Date Type Department Care Team ([facility] st Contact Info) Description 06/09/2025 Results Follow-Up [facility] [address] [place] [address] Provider, Generic External Data XR Chest 1 [...] on filedocumented in this encounter Care Teams Spot Facer Relationship Specialty Start Date End Date Missy Milner RN [address] [place] [address] Registered Nurse Family Medicine 04/23/25 Conor Vidal 04/23/25 documented as of this encounter
--- OUTSIDE RECORDS SUMMARY | 2025-07-11 16:28 | XMS_ITS | Encounter Summary ---
Author Organization [facility] Address [address] [place] [address] [place] [address] Care Team Providers Care Paperhanger Assistant Name Role Phone Missy Milner RN Unavailable [phone] Conor Vidal Unavailable Encounter Details Date Type Department Care Team ([facility] st Contact Info) Description 06/19/2025 Results Follow-Up [facility] [address] [place] [address] Provider, Generic External Data XR Chest 2 Views Social History Tobacco [...] on filedocumented in this encounter Care Teams Paperhanger Assistant Relationship Specialty Start Date End Date Missy Milner RN [address] [place] [address] Registered Nurse Family Medicine 04/23/25 Conor Vidal 04/23/25 documented as of this encounter
--- OUTSIDE RECORDS SUMMARY | 2025-07-11 16:28 | XMS_ITS | Clinical Summary ---
Author Organization [employer] Address [address] [place] [address] 7[address] [place] [address] Care Team Providers Care Emergency Vehicle Dispatcher Name Role Phone Missy Milner RN Unavailable [phone] Young Conor Unavailable Allergies No known active [...] Patient presented with altered mental status from [facility] where he appeared more lethargic than [...] Encounters Date Type Department Care Team Description 07/08/2025 Patient Outreach [facility] CHC MED & PEDS [address] [place], [place] [phone] Missy Milner, LAURA 07/07/2025 Telephone [facility] MEDICINE [address] [place] [address] Mihaela Zhong RN Needs EDUCATIONAL SPECIALIST Appt 07/06/2025 Orders Only GENERIC EXTERNAL DATA DEPARTMENT Provider, Generic External Data 07/02/2025 Orders Only [facility] External Provider, [facility] 07/01/2025 Patient Outreach [facility] MEDICINE [address] [place] [address] Missy Milner, LAURA Care Coordination ([facility] Conor Vidal, TC #5 initial outreach attempt_lvm) 06/19/2025 Results Follow-Up [facility] Information Management [address] [place] [address] Provider, Generic External Data XR Chest 2 Views 06/19/2025 Results Follow-Up [facility] Information Management [address] [place] [address] External Provider, [facility] CT Chest w/ Contrast 06/19/2025 Orders Only [facility] External Provider, [facility] 06/18/2025 Orders Only GENERIC EXTERNAL DATA DEPARTMENT Provider, Generic External Data 06/11/2025 Travel 06/09/2025 Results Follow-Up [facility] Information Community Health [address] [place] [address] Provider, Generic External Data XR Chest 1 View 06/08/2025 Orders Only GENERIC EXTERNAL DATA DEPARTMENT Provider, Generic External Data 06/05/2025 Orders Only GENERIC EXTERNAL DATA DEPARTMENT Provider, Generic External Data 05/30/2025 Patient Outreach [facility] MEDICINE [address] [place] [phone] Missy Milner, LAURA Care Coordination ([facility]/W Conor Vidal, TC #4 Initial outreach attempt_lvm ) 05/23/2025 Orders Only GENERIC EXTERNAL DATA DEPARTMENT Provider, Generic External Data 05/21/2025 Orders Only GENERIC EXTERNAL DATA DEPARTMENT Provider, Generic External Data 05/19/2025 Patient Outreach [facility] MED & PEDS [address] [place] [address] Missy Milner RN 05/13/2025 Orders Only 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 Please make this patient a high priority.); NEW PATIENT AAPT REQUEST 05/08/2025 Travel 05/05/2025 Orders Only GENERIC EXTERNAL DATA DEPARTMENT Provider, Generic External Data 05/02/2025 Patient Outreach [facility] MED & PEDS [address] [place] [address] Missy Milner RN 05/02/2025 Patient Outreach [facility] MED & PEDS [address] [place] [address] Missy Milner RN 05/02/[address] [address] Misti Murry MD NEW PT APPT 05/02/2025 Patient Outreach [address] [address] Misti Murry MD Care Coordination ([facility] Conor Vidal, TC #3 initial outreach attempt, appt reminder_lvm) 04/30/[address] [address] Misti Murry MD CHART PREP 04/30/2025 Orders Only GENERIC EXTERNAL DATA DEPARTMENT Provider, Generic External Data 04/28/2025 Patient Outreach [address] [address] Misti Murry MD Care Coordination ([facility] Conor Vidal, TC #2 initial outreach attempt_lvm ) 04/24/2025 Patient Outreach [address] [address] Misti Murry MD 04/23/2025 Results Follow-Up [address] [address] Misti Murry MD XR Chest 2 Views 04/23/2025 Patient Outreach [address] [address] Misti Murry MD Pre-visit Planning ((Unable to reach for PVP screening, LVM) to be completed in office) 04/23/2025 Patient Outreach [address] [address] Misti Murry MD Care Coordination ([facility] Conor Vidal, Initial outreach attempt_lvm ) 04/23/2025 Patient Outreach [address] [address] Misti Murry MD Care Coordination ([facility] Conor Vidal, Chart review ) 04/23/2025 Patient Outreach [facility] MED & PEDS [address] [place] [address] Misti Murry MD Care Coordination ([facility] chart review) 04/23/2025 Patient Outreach [address] [address] Misti Murry MD 04/22/2025 Telephone [facility] WALK-IN CENTER [address] [place] [address] Chinedu Brenner MD 04/21/2025 Telephone [facility] WALK-IN CENTER [address] [place] [address] Chinedu Brenner MD 04/19/2025 Orders Only [facility] External Provider, [facility] from Last 3 Months Immunizations Immunization Administration [...] Diagnosis Comments XR CHEST 1 VIEW Routine 07/06/2025 7:16 PM EDT DRUG MONITOR, PANEL 1, SCREEN, URINE Routine 07/06/2025 6:08 PM EDT HIGH SENSITIVITY TROPONIN I Routine 07/06/2025 5:58 PM EDT B TYPE NATRIURETIC PEPTIDE (BNP) Routine 07/06/2025 5:58 PM EDT ETHANOL Routine 07/06/2025 5:58 PM EDT COMPREHENSIVE METABOLIC PANEL Routine 07/06/2025 5:58 PM EDT CBC WITH AUTO DIFFERENTIAL Routine 07/06/2025 5:58 PM EDT XR CHEST 1 VIEW Routine 07/02/2025 9:37 PM EDT XR CHEST 1 VIEW Routine 06/22/2025 9:[address] CHEST W CONTRAST Routine 06/19/2025 4 :46 AM EDT LACTIC ACID LAB USE ONLY Routine 06/18/2025 11:49 PM EDT XR CHEST 2 VIEWS Routine 06/18/2025 11:4 7 PM EDT B TYPE NATRIURETIC PEPTIDE (BNP) Routine 06/18/2025 9:19 PM EDT SLIDE REVIEW Routine 06/18/2025 9:19 PM EDT CBC WITH AUTO DIFFERENTIAL Routine 06/18/2025 9:19 PM EDT HIGH SENSITIVITY TROPONIN I Routine 06/18/2025 9:19 PM EDT LACTIC ACID Routine 06/18/2025 9:19 PM EDT ETHANOL Routine 06/18/2025 9:19 PM EDT MAGNESIUM Routine 06/18/2025 9:19 PM EDT COMPREHENSIVE METABOLIC PANEL Routine 06/18/2025 9:19 PM EDT XR CHEST 1 VIEW Routine 06/08/2025 6:03 PM EDT HIGH SENSITIVITY TROPONIN I Routine 06/08/2025 5:01 PM EDT B TYPE NATRIURETIC PEPTIDE (BNP) Routine 06/08/2025 5:01 PM EDT ETHANOL Routine 06/08/2025 5:01 PM EDT MAGNESIUM Routine 06/08/2025 5:01 PM EDT BASIC METABOLIC PANEL Routine 06/08/2025 5:01 PM EDT HEPATIC FUNCTION PANEL Routine 5:01 PM EDT CBC WITH AUTO DIFFERENTIAL Routine 06/08/2025 5:01 PM EDT SARS COV2/INFLUENZA A/B AND RSV RNA QL NAAT Routine 06/08/2025 5:01 PM EDT DRUG MONITOR, PANEL 1, SCREEN, URINE Routine 06/05/2025 2:41 PM EDT VENOUS BLOOD GAS Routine 06/05/2025 11:5 9 [...] Months Results * XR Chest 1 View (07/06/2025 7:16 PM EDT) Only the most recent of4 resultswithin the time period is included. Anatomical Region Laterality Modality Chest Radiographic Lamar ging 07/06/2025 7:16 PM EDT Narrative 07/06/2025 7:18 PM EDT [address] [address] XRay Report Signed Patient: Charbel Delgado MR#: [id number] : 1970 Acct:[id number] Age/Sex: 55 / M ADM Date: 07/06/25 Loc: HO.ED Attending Dr: Ordering Physician: Maryann Cee Date of Service: 07/06/25 Procedure(s): XR chest 1V Accession Number(s): [id number] cc: [facility]; Maryann Cee CLINICAL HISTORY: hypoxia 1 view chest x-ray Comparison: CR - XR CHEST 1V - 07/02/25 20:44 EDT Findings: There is increased vascular prominence and increased reticular lung opacities in comparison to prior. No effusion or pneumothorax. Heart is mildly enlarged. No acute fracture. IMPRESSION: Increased interstitial lung markings and vascular prominence suggesting pulmonary edema /CHF. This document has been electronically signed by: Brandt Johnson MD on 07/06/2025 19:16:26 Dictated By: Brandt Johnson MD Signed By: <Electronically signed by Brandt Johnson MD in OV> 07/06/251916 DD/ 15 TD/TT: 07/06/251915 [employer]: Procedure Note Donotuseinterpreter, Image - 07/06/[address] [address] XRay Report Signed Patient: Isaias Delgado#: [id number] : 1970Acct:[id number] Age/Sex: 55 / MADM Date: 07/06/25 Loc: .ED Attending Dr: Ordering Physician: Maryann Cee Date of Service: 07/06/25 Procedure(s): XR chest 1V Accession Number(s): [id number] cc: [facility]; Maryann Cee CLINICAL HISTORY: hypoxia 1 view chest x-ray Comparison: CR - XR CHEST 1V - 07/02/25 20:44 EDT Findings: There is increased vascular prominence and increased reticular lung opacities in comparison to prior. No effusion or pneumothorax. Heart is mildly enlarged. No acute fracture. IMPRESSION: Increased interstitial lung markings and vascular prominence suggesting pulmonary edema /CHF. This document has been electronically signed by: Brandt Johnson MD on 07/06/2025 19:16:26 Dictated By: Brandt Johnson MD Signed By: <Electronically signed by Brandt Johnson MD in OV> 07/06/251916 DD/ 15 TD/TT: 07/06/251915 [employer]: [facility] External Provider IMG XR PROCEDURES Edited Result - Final * (ABNORMAL) Drug Monitoring, Panel 1, Screen, Urine (07/06/2025 6:08 PM EDT) Only the most recent of3 resultswithin the time period is included. Opiate Screen Urine Not Detected Not Detect [facility] Comment:Opiate cut-off is 30 0 ng/mL.Positive results are unconfirmed and should not be used fornon-medical purposes. Barbiturates, Urine POSITIVE(A) Not Detect [facility] Comment:Barbiturate cut-off is 200 ng/mL.Positive results are unconfirmed and should not be used fornon-medical purposes. Phencyclidine Screen Urine Not Detected Not Detect [facility] Comment:Phencyclidine cut-of f is 25 ng/mL.Positive results are unconfirmed and should not be used fornon-medical purposes. Amphetamine Screen Urine Not Detected Not Detect [facility] Comment:Amphetamine cut-off is 1000 ng/mL.Positive results are unconfirmed and should not be used fornon-medical purposes. Benzodiazepines Screen Urine Not Detected Not Detect [facility] Comment:Benzodiazepine cut-o ff is 200 ng/mL.Positive results are unconfirmed and should not be used fornon-medical purposes. Cocaine Screen Urine Not Detected Not Detect [facility] Comment:Cocaine cut-off is 3 00 ng/mL.Positive results are unconfirmed and should not be used fornon-medical purposes. Cannabinoid Screen Urine Not Detected Not Detect [facility] Comment:Cannabinoid cut-off is 50 ng/mL.Positive results are unconfirmed and should not be used fornon-medical purposes. Methadone Screen, Urine Not Detected Not Detect ng/mL [facility] Comment:Methadone cut-off is 300 ng/mL.Positive results are unconfirmed and should not be used fornon-medical purposes. FENTANYL URINE Not Detected Not Detect [facility] Comment:Fentanyl cut-off is 1 ng/mL.Positive results are unconfirmed and should not be used fornon-medical purposes. Oxycodone Urine Screen Not Detected Not Detect ng/mL [facility] Comment:Oxycodone cut-off is 100 ng/mL.Positive results are unconfirmed and should not be used fornon-medical purposes. Buprenorphine Screen Not Detected Not Detect ng/mL [facility] Comment:Buprenorphine cut-of f is 5 ng/mL.Positive results are unconfirmed and should not be used fornon-medical purposes. 07/06/2025 6:08 PM EDT 07/06/2025 6:11 PM EDT Generic External Data Provider LAB URINE ORDERAB LES Final Result Performing Organization Address [facility] Co de Phone Number [facility] [address] [place] [phone] * High Sensitivity Troponin I (07/06/2025 5:58 PM EDT) Only the most recent of6 resultswithin the time period is included. TROPONIN I HIGH SENSITIVITY <2.7 <3.5 - 35.0 ng/L [facility] Comment:The [place] high sens itivity Troponin-I results should beused in conjunction with other diagnostic information suchas ECG, clinical observations and information, and patientsymptoms to aid in the diagnosis of MT. 07/06/2025 5:58 PM EDT 07/06/2025 6:06 PM EDT Generic External Data Provider LAB BLOOD ORDERAB LES Final Result Performing Organization Address [facility] Co de Phone Number [facility] [address] [place] [phone] * (ABNORMAL) Ethanol (07/06/2025 5:58 PM EDT) Only the most recent of5 resultswithin the time period is included. ETHANOL (MG/DL) IN SER/PLAS 399(HH) mg/dL [facility] Comment:Serum/plasma ethanol results are to be used formedical/treatment purposes only. 07/06/2025 5:58 PM EDT 07/06/2025 6:06 PM EDT us Generic External Data Provider LAB BLOOD ORDERAB LES Final Result [facility] [address] [place] [address] [phone] * (ABNORMAL) CBC auto differential (07/06/2025 5:58 PM EDT) Only the most recent of7 resultswithin the time period is included. White Blood Count 3.8(L) 4.8 - 10.8 X10*3/uL [facility] Red Blood Count 3.19(L) 4.60 - 5.80 X10*6/uL [facility] Hemoglobin 9.9(L) 14.0 - 18.0 g/dl [facility] Hematocrit 29.9(L) 42.0 - 52.0 % [facility] Mean Corpuscular Volume 93.7 80.0 - 98.0 fL [facility] Mean Corpuscular Hemoglobin 31.0 27.0 - 33.0 pg [facility] Mean Corpuscular HGB Conc 33.1 31.0 - 36.0 g/dl [facility] Red Cell Distribution Width 17.9(H) 11.0 - 16.0 % [facility] Platelet Count 60(L) 160 - 400 X10*3/uL [facility] Mean Platelet Volume 11.8 9.4 - 12.4 fL [facility] Neutrophils Percent Auto 55.0 45 - 73 % [facility] Imm Gran Pct Auto 0.5(H) 0.0 - 0.4 % [facility] Lymphocytes Percent Auto 30.6 20 - 40 % [facility] Monocytes Percent Auto 8.8 2 - 11 % [facility] Eosinophils Percent Auto 3.5 0 - 4 % [facility] Basophils Percent Auto 1.6 0 - 2 % [facility] NRBC Pct Auto 0.0 0.0 - 0.2 /100WBC [facility] Neutrophils Absolute Auto 2.1 2.0 - 8.3 x10*3/uL [facility] Imm Gran Abs Auto 0.02 0.00 - 0.03 X10*3/uL [facility] Lymphocytes Absolute Auto 1.2 1.2 - 4.9 X10*3/uL [facility] Monocytes Absolute Auto 0.3 0.1 - 1.2 X10*3/uL [facility] Eosinophils Absolute Auto 0.1 0.0 - 0.4 X10*3/uL [facility] Basophils Absolute Auto 0.1 0.0 - 0.2 X10*3/uL [facility] NRBC Abs Auto 0.000 0.0 - 0.012 X10*3/uL [facility] 07/06/2025 5:58 PM EDT 07/06/2025 6:06 PM EDT us Generic External Data Provider LAB BLOOD ORDERAB LES Final Result Performing Organization Address City/[facility]/ZIP Co de Phone Number [facility] [address] [place] [phone] * B Type Natriuretic Peptide (BNP) (07/06/2025 5:58 PM EDT) Only the most recent of6 resultswithin the time period is included. B Type Natriuretic Peptide 100 <100 pg/mL [facility] 07/06/2025 5:58 PM EDT 07/06/2025 6:06 PM EDT us Generic External Data Provider LAB BLOOD ORDERAB LES Final Result Performing Organization Address City/[facility]/ZIP Co de Phone Number [facility] [address] [place] [phone] * (ABNORMAL) Comprehensive Metabolic Panel (07/06/2025 5:58 PM EDT) Only the most recent of4 resultswithin the time period is included. Sodium 143 135 - 145 mmol/L [facility] Potassium 3.6 3.3 - 5.1 mmol/L [facility] Chloride 112(H) 96 - 108 mmol/L [facility] Carbon Dioxide 18(L) 22 - 29 mmol/L [facility] Anion Gap 17 12 - 20 [facility] Urea Nitrogen (BUN) 10 9 - 16 mg/dL [facility] Creatinine, Serum 0.95 0.5 - 1.4 mg/dL [facility] Creatinine Clr Calc Pharmacy 69.6 [facility] Comment:eGFR (calculated fro m the MDRD study equation) and eCrCl(calculated from the Cockcroft-Gault equation) are based ondifferent parameters and may not yield comparable results.If eCrCl result is absurd, please check patient'sheight/weight. Estimated Glomerular Filt Rate >60 [facility] Comment:Chronic Kidney Disea se: Estimated GFR < 60 mL/min/1.27b9Fvsgez Kidney Disease: Estimated GFR < 15 mL/min/1.73m2 Glucose 110 60 - 115 mg/dL [facility] Calcium 8.1(L) 8.4 - 10.2 mg/dL [facility] Bilirubin, Total 0.6 0.0 - 1.0 mg/dL [facility] Aspartate Amino Transferase 51(H) 5 - 37 U/L [facility] Alanine Aminotransferase 11 0 - 40 U/L [facility] Total Protein 8.0 6.5 - 8.0 g/dL [facility] Albumin Level 3.5 3.5 - 5.0 g/dL [facility] Alkaline Phosphatase 158(H) 39 - 117 U/L [facility] 07/06/2025 5:58 PM EDT 07/06/2025 6:06 PM EDT us Generic External Data Provider LAB BLOOD ORDERAB LES Final Result [facility] [address] [place] [phone] [phone] * CT Chest w/ Contrast (06/19/2025 4:46 AM EDT) Anatomical Region Laterality Modality Body, Chest Computed Tomogra phy 06/19/2025 4:46 AM EDT Narrative 06/19/2025 4:48 AM EDT [address] [address] [address] Scan Report Signed Patient: Charbel Delgado MR#: [id number] : 1970 Acct:[id number] Age/Sex: 55 / M ADM Date: 06/19/25 Loc: [facility]: Mercedes Hogan MD Ordering Physician: David Galvez PA-C Date of Service: 06/19/25 Procedure(s): CT chest w IV con Accession Number(s): [id number] cc: [facility]; David Galvez PA-C Report Number: [id number]: Total DLP = 265.00 mGy-cm CLINICAL HISTORY: Hypoxia, ? PNA vs CHF CT chest with contrast Comparison: CR - XR CHEST 2V - 06/18/25 22:20 EDT Findings: Limited visualization of the neck due to significant patient rotation. Thyroid and mediastinum are unremarkable. No cervical, mediastinal, subcarinal, hilar, or axillary lymphadenopathy. Heart size is normal. No pericardial effusion. Intrathoracic vasculature is unremarkable. Central airways are patent. Right lower lobe, basilar segment of the left upper lobe, and most significantly the left lower lobe demonstrate patchy consolidation with subtle air bronchograms. Findings may reflect atelectasis or pneumonia in the appropriate clinical setting. Vascular congestion from CHF is less likely in that not all lobes are affected. Extensive esophageal varices. Perigastric varices. Hepatic steatosis, hepatomegaly, and trace perihepatic ascites. Splenomegaly. Calcified gallstone. Osseous structures are unremarkable. IMPRESSION: Right lower lobe, basilar segment of the left upper lobe, and most significantly the left lower lobe demonstrating atelectasis or pneumonia in the appropriate clinical setting. Vascular congestion from CHF less likely due to lack of diffuse pulmonary involvement. Cirrhosis, as demonstrated by extensive esophageal and perigastric varices, hepatomegaly, splenomegaly, and trace perihepatic ascites. This document has been electronically signed by: Oskar Tariq MD on 06/19/2025 04:46:17 Dictated By: Oskar Tariq MD Signed By: <Electronically signed by Oskar Tariq MD in OV> 06/19/25446 DD/ 5 TD/TT: 06/19/25445 [employer]: Procedure Note Donotuseinterpreter, Image - 06/19/[address] [place] [address] [address] Scan Report Signed Patient: Isaias Delgado#: [id number] : 1970Acct:[id number] Age/Sex: 55 / MADM Date: 06/19/25 Loc: [place] [address]: Mercedes Hogan MD Ordering Physician: David Galvez PA-C Date of Service: 06/19/25 Procedure(s): CT chest w IV con Accession Number(s): [id number] cc: [facility]; David Galvez PA-C Report Number: [id number]: Total DLP = 265.00 mGy-cm CLINICAL HISTORY: Hypoxia, ? PNA vs CHF CT chest with contrast Comparison: CR - XR CHEST 2V - 06/18/25 22:20 EDT Findings: Limited visualization of the neck due to significant patient rotation. Thyroid and mediastinum are unremarkable. No cervical, mediastinal, subcarinal, hilar, or axillary lymphadenopathy. Heart size is normal. No pericardial effusion. Intrathoracic vasculature is unremarkable. Central airways are patent. Right lower lobe, basilar segment of the left upper lobe, and most significantly the left lower lobe demonstrate patchy consolidation with subtle air bronchograms. Findings may reflect atelectasis or pneumonia in the appropriate clinical setting. Vascular congestion from CHF is less likely in that not all lobes are affected. Extensive esophageal varices. Perigastric varices. Hepatic steatosis, hepatomegaly, and trace perihepatic ascites. Splenomegaly. Calcified gallstone. Osseous structures are unremarkable. IMPRESSION: Right lower lobe, basilar segment of the left upper lobe, and most significantly the left lower lobe demonstrating atelectasis or pneumonia in the appropriate clinical setting. Vascular congestion from CHF less likely due to lack of diffuse pulmonary involvement. Cirrhosis, as demonstrated by extensive esophageal and perigastric varices, hepatomegaly, splenomegaly, and trace perihepatic ascites. This document has been electronically signed by: Oskar Tariq MD on 06/19/2025 04:46:17 Dictated By: Oskar Tariq MD Signed By: <Electronically signed by Oskar Tariq MD in OV> 06/19/25446 DD/ 5 TD/TT: 06/19/25445 [employer]: [facility] External Provider IMG CT PROCEDURES Edited Result - Final * Lactic Acid (06/18/2025 11:49 PM EDT) Lactic Acid 1.8 0.5 - 2.0 mmol/L [facility] 06/18/2025 11:4 9 PM EDT 06/19/2025 Generic External Data Provider LAB BLOOD ORDERAB LES Final Result [facility] [address] [place] [phone] * XR Chest 2 Views (06/18/2025 11:47 PM EDT) Only the most recent of5 resultswithin the time period is included. Anatomical Region Laterality Modality Chest Radiographic Lamar ging 06/18/2025 11:4 7 PM EDT Narrative 06/18/2025 11:48 PM EDT [address] [address] XRay Report Signed Patient: Charbel Delgado MR#: [id number] : 1970 Acct:[id number] Age/Sex: 55 / M ADM Date: 06/18/25 Loc: .ED Attending Dr: Ordering Physician: David Galvez PA-C Date of Service: 06/18/25 Procedure(s): XR chest 2V Accession Number(s): [id number] cc: [facility]; David Galvez PA-C CLINICAL HISTORY: Hypoxia 2 view chest x-ray Comparison: CR - XR CHEST 1V - 06/08/25 17:07 EDT Findings: Retrocardiac opacity that can be appreciated on the lateral view, not present on 05/24/2025 chest radiograph. Also, increased interstitial lung markings compared to prior. No pleural effusions. Normal size heart. Osseous structures unremarkable. IMPRESSION: Retrocardiac opacity best seen on the lateral view, new since 05/24/2025. Possible pneumonia in the appropriate clinical setting. Increased prominence of interstitial lung markings that can be related to vascular congestion. This document has been electronically signed by: Oskar Tariq MD on 06/18/2025 23:47:36 Dictated By: Oskar Tariq MD Signed By: <Electronically signed by Oskar Tariq MD in OV> 06/18/252347 DD/ 46 TD/TT: 06/18/252346 [employer]: Procedure Note Donotuseinterpreter, Image - 06/19/2025 [place] [address] XRay Report Signed Patient: Isaias Delgado#: [id number] : 1970Acct:[id number] Age/Sex: 55 / MADM Date: 06/18/25 Loc: .ED Attending Dr: Ordering Physician: David Galvez PA-C Date of Service: 06/18/25 Procedure(s): XR chest 2V Accession Number(s): [id number] cc: [facility]; David Galvez PA-C CLINICAL HISTORY: Hypoxia 2 view chest x-ray Comparison: CR - XR CHEST 1V - 06/08/25 17:07 EDT Findings: Retrocardiac opacity that can be appreciated on the lateral view, not present on 05/24/2025 chest radiograph. Also, increased interstitial lung markings compared to prior. No pleural effusions. Normal size heart. Osseous structures unremarkable. IMPRESSION: Retrocardiac opacity best seen on the lateral view, new since 05/24/2025. Possible pneumonia in the appropriate clinical setting. Increased prominence of interstitial lung markings that can be related to vascular congestion. This document has been electronically signed by: Oskar Tariq MD on 06/18/2025 23:47:36 Dictated By: Oskar Tariq MD Signed By: <Electronically signed by Oskar Tariq MD in OV> 06/18/252347 DD/ 46 TD/TT: 06/18/252346 [employer]: [facility] External Provider IMG XR PROCEDURES Edited Result - Final * Slide Review (06/18/2025 9:19 PM EDT) Slide Review VERIFIED [facility] 06/18/2025 9:19 PM EDT 06/18/2025 9:27 PM EDT Generic External Data Provider LAB BLOOD ORDERAB LES Final Result Performing Organization Address City/[facility]/ZIP Co de Phone Number [facility] [address] [place] [phone] * Magnesium (06/18/2025 9:19 PM EDT) Only the most recent of5 resultswithin the time period is included. Magnesium 1.6 1.6 - 2.6 mg/dL [facility] 06/18/2025 9:19 PM EDT 06/18/2025 9:27 PM EDT Generic External Data Provider LAB BLOOD ORDERAB LES Final Result Performing Organization Address City/[facility]/ZIP Co de Phone Number [facility] [address] [place] [address] [phone] * (ABNORMAL) Lactic Acid (06/18/2025 9:19 PM EDT) Lactic Acid 2.4(HH) 0.5 - 2.0 mmol/L [facility] Comment:Critical value for t est(s): LACTA Results called to gildardo back by: PATRICIA Person calling: [email or web address] Date: 06/18/25Time:2154 06/18/2025 9:19 PM EDT 06/18/2025 9:27 PM EDT Generic External Data Provider LAB BLOOD ORDERAB LES Final Result Performing Organization Address [facility] Co de Phone Number [facility] [address] [place] [phone] * SARS-CoV-2 RNA, Influenza A/B, and RSV RNA, Ql NAAT (06/08/2025 5:01 PM EDT) Only the most recent of2 resultswithin the time period is included. Influenza A PCR NEGATIVE Negative [facility] Influenza B PCR NEGATIVE Negative [facility] Resp Syncy Virus RNA Qual PCR NEGATIVE Negative [facility] SARS COV2 PCR NEGATIVE Negative [facility] Comment:All test results mus [...] use by authorized laboratories.Testing performed on the [employer] GeneXpert utilizingreal-time RT-PCR.All SARS CoV2 and positive influenza A/B results arereported to [facility]. 06/08/2025 5:01 PM EDT 06/08/2025 5:07 PM EDT Generic External Data Provider LAB MICROBIOLOGY - GENERAL ORDERABLES Final Result Performing Organization Address [facility] Co de Phone Number [facility] [address] [place] [phone] * (ABNORMAL) Hepatic Function Panel (06/08/2025 5:01 PM EDT) Only the most recent of4 resultswithin the time period is included. Bilirubin, Total 0.7 0.0 - 1.0 mg/dL [facility] Bilirubin, Direct 0.4 0.0 - 0.5 mg/dL [facility] Aspartate Amino Transferase 66(H) 5 - 37 U/L [facility] Alanine Aminotransferase 15 0 - 40 U/L [facility] Total Protein 7.8 6.5 - 8.0 g/dL [facility] Albumin Level 3.5 3.5 - 5.0 g/dL [facility] Alkaline Phosphatase 133(H) 39 - 117 U/L [facility] 06/08/2025 5:01 PM EDT 06/08/2025 5:05 PM EDT us Generic External Data Provider LAB BLOOD ORDERAB LES Final Result [facility] [address] [place] [phone] * (ABNORMAL) Basic Metabolic Panel (06/08/2025 5:01 PM EDT) Only the most recent of3 resultswithin the time period is included. Pathologist [facility] [place] Sodium 144 135 - 145 mmol/L [facility] Potassium 3.4 3.3 - 5.1 mmol/L [facility] Chloride 114(H) 96 - 108 mmol/L [facility] Carbon Dioxide 20(L) 22 - 29 mmol/L [facility] Anion Gap 13 12 - 20 [facility] Urea Nitrogen (BUN) 9 9 - 16 mg/dL [facility] Creatinine, Serum 0.66 0.5 - 1.4 mg/dL [facility] Creatinine Clr Calc Pharmacy 100.2 [facility] Comment:eGFR (calculated fro m the MDRD study equation) and eCrCl(calculated from the Cockcroft-Gault equation) are based ondifferent parameters and may not yield comparable results.If eCrCl result is absurd, please check patient'sheight/weight. Estimated Glomerular Filt Rate >60 [facility] Comment:Chronic Kidney Disea se: Estimated GFR < 60 mL/min/1.90p1Qglhse Kidney Disease: Estimated GFR < 15 mL/min/1.73m2 Glucose 92 60 - 115 mg/dL [facility] Calcium 8.2(L) 8.4 - 10.2 mg/dL [facility] 06/08/2025 5:01 PM EDT 06/08/2025 5:05 PM EDT us Generic External Data Provider LAB BLOOD ORDERAB LES Final Result Performing Organization Address City/[facility] Co de Phone Number [facility] [address] [place] [address] [phone] * (ABNORMAL) VENOUS BLOOD GAS (06/05/2025 11:59 AM EDT) VBG pH 7.41 7.32 - 7.43 [facility] Comment:METER #: [id number] additional_comment: Cbnievea VBG PCO2 29 mmHg [facility] Comment:METER #: [id number] additional_comment: Cbnievea VBG PO2 109 mmHg [facility] Comment:METER #: [id number] additional_comment: Cbnievea VBG Base Excess -4.5 mmol/L [facility] Comment:METER #: [id number] additional_comment: Cbnievea VBG HCO3 19(L) 22 - 26 mmol/L [facility] Comment:METER #: [id number] additional_comment: Cbnievea O2 Sat, Demetrio 99.0 % [facility] Comment:METER #: [id number] additional_comment: Cbnievea 06/05/2025 11:5 9 AM EDT 06/05/2025 12:03 PM EDT us Generic External Data Provider LAB BLOOD ORDERAB LES Final Result Performing Organization Address City/State/[facility] Co de Phone Number [facility] [address] [place] [phone] * (ABNORMAL) Creatine Kinase, Total (06/05/2025 11:54 AM EDT) Only the most recent of2 resultswithin the time period is included. Creatine Kinase Total 34(L) 38 - 174 U/L [facility] 06/05/2025 11:5 4 AM EDT 06/05/2025 11:57 AM EDT us Generic External Data Provider LAB BLOOD ORDERAB LES Final Result Performing Organization Address [facility] Co de Phone Number [facility] [address] [place] [phone] * VASC US Lower Extremity Venous Duplex Bilateral (05/23/2025 7:11 PM EDT) 05/23/2025 7:11 PM EDT Narrative [facility] - 05/23/2025 7:12 PM EDT [address] [address] Ultrasound Report Signed Patient: Charbel Delgado MR#: [id number] : 1970 Acct:[id number] Age/Sex: 55 / M ADM Date: 05/23/25 Loc: .ED Attending Dr: Ordering Physician: Dexter Foster Date of Service: 05/23/25 Procedure(s): US venous duplex LE BI Accession Number(s): [id number] cc: Dexter Foster; [facility] CLINICAL HISTORY: bilateral leg swelling Venous [...] in OV> 05/23/251910 DD/ 10 TD/TT: 05/23/251910 [employer]: Procedure Note Maikfernandopatrick, Image - 05/23/[address] [address] Ultrasound Report Signed Patient: Isaias Delgado#: [id number] : 1970Acct:[id number] Age/Sex: 55 / MADM Date: 05/23/25 Loc: HO.ED Attending Dr: Ordering Physician: Dexter Foster Date of Service: 05/23/25 Procedure(s): US venous duplex LE BI Accession Number(s): [id number] cc: Dexter Foster; [facility] CLINICAL HISTORY: bilateral leg swelling Venous [...] in OV> 05/23/251910 DD/ 10 TD/TT: 05/23/251910 [employer]: us [facility] External Provider CV VASC ULAR PROCEDURES Final Result [facility] [address] [place] [phone] * Lipase (05/23/2025 1:50 PM EDT) Lipase 21 8 - 78 U/L [facility] 05/23/2025 1:50 PM EDT 05/23/2025 1:53 PM EDT Generic External Data Provider LAB BLOOD ORDERAB LES Final Result [facility] [address] [place] [phone] * US VENOUS DUPLEX LE LT (05/13/2025 10:50 PM EDT) Anatomical Region Laterality Modality Abdomen Ultrasound 05/13/2025 10:5 0 PM EDT Narrative 05/13/2025 10:51 PM EDT [place] [address] Ultrasound Report Signed Patient: Charbel Delgado MR#: [id number] : 1970 Acct:[id number] Age/Sex: 55 / M ADM Date: 05/13/25 Loc: HO.ED Attending Dr: Ordering Physician: David Galvez PA-C Date of Service: 05/13/25 Procedure(s): US venous duplex LE LT Accession Number(s): [id number] cc: [facility]; David Galvez PA-C CLINICAL HISTORY: Swelling; [...] in OV> 05/13/252250 DD/ 49 TD/TT: 05/13/252249 [employer]: Procedure Note Donotuseinterpreter, Image - 05/13/[address] [address] Ultrasound Report Signed Patient: Rod DelgadoR#: [id number] : 1970Acct:[id number] Age/Sex: 55 / MADM Date: 05/13/25 Loc: HO.ED Attending Dr: Ordering Physician: David Galvez PA-C Date of Service: 05/13/25 Procedure(s): US venous duplex LE LT Accession Number(s): [id number] cc: [facility]; David Galvez PA-C CLINICAL HISTORY: Swelling; [...] in OV> 05/13/252250 DD/ 49 TD/TT: 05/13/252249 [employer]: [facility] External Provider IMG US PROCEDURES Final Result * Blood Culture (First) (04/30/2025 9:19 AM EDT) Blood Venous blood specimen / Unknown 04/30/2025 9:19 AM EDT 04/30/2025 9:24 AM EDT Comment:Blood Narrative [facility] - 05/05/2025 11:24 AM EDT Blood Culture (First) No growth after 5 days. Specimen Source: Blood Generic External Data Provider LAB MICROBIOLOGY - GENERAL ORDERABLES Final Result Performing Organization Address [facility]/ZIP Co de Phone Number [facility] [address] [place] [phone] * Blood Culture (Second) (04/30/2025 9:19 AM EDT) Blood Venous blood specimen / Unknown 04/30/2025 9:19 AM EDT 04/30/2025 9:24 AM EDT Comment:Blood Narrative [facility] - 05/05/2025 11:24 AM EDT Blood Culture (Second) No growth after 5 days. Specimen Source: Blood Generic External Data Provider LAB MICROBIOLOGY - GENERAL ORDERABLES Final Result [facility] [address] [place] [phone] * (ABNORMAL) Sed Rate by Modified Matthewergren (04/30/2025 9:19 AM EDT) Erythrocyte Sedimentation Rate 26(H) 0 - 15 MM/HR [facility] Comment:Patients with polycy themia and many hemoglobin abnormalitiesmay have depressed sed rates whereas patients with anemiamay have elevated sed rates. 04/30/2025 9:1 9 AM EDT 04/30/2025 9:24 AM EDT Generic External Data Provider LAB BLOOD ORDERAB LES Final Result Performing Organization Address [facility] Co de Phone Number [facility] [address] [place] [phone] * (ABNORMAL) Glucose, Whole Blood (04/19/2025 7:43 PM EDT) Glucose, Whole Blood 122(H) 60 - 115 mg/dL [facility] Comment:METER #: [id number] 04/19/2025 7:43 PM EDT 04/19/2025 7:47 PM EDT Generic External Data Provider LAB BLOOD ORDERAB LES Final Result Performing Organization Address City/[facility] Co de Phone Number [facility] [address] [place] [phone] [phone] from Last 3 Months Insurance [facility] [address] HSN PARTIAL [facility] C3 Care Teams Emergency Vehicle Dispatcher Relationship Specialty Start Date End Date Missy Milner RN [address] [place] [phone] Registered Nurse Family Medicine 04/23/25 Conor Vidal 04/23/25
--- OUTSIDE RECORDS SUMMARY | 2025-07-11 16:28 | XMS_ITS ---
Author Organization [employer] Address [address] [place] [address] [address] [place] [address] Care Team Providers Care Fur Repair Inspector Name Role Phone Missy Milner RN Unavailable [phone] Conor Vidal Unavailable CM Complex Status:Outreach In Progress (Enrolling) Start date:04/23/2025 Enrollment reason:ADT Feed Overview ADT-admitted [facility] 04/22/25 Case Team Name Relationship Phone Missy Milner RN(Responsible Staff) Registered Nurse [phone] Continued Care and Services Coordination
--- OUTSIDE RECORDS SUMMARY | 2025-07-11 16:28 | XMS_ITS | Encounter Summary ---
Author Organization [employer] Address [address] [place] [address] [address] [place] [address] Care Team Providers Care Skoog Operator Name Role Phone Missy Milner RN Unavailable [phone] Conor Vidal Unavailable Encounter Details Date Type Department Care Team ([facility] st Contact Info) Description 07/08/2025 Patient Outreach [facility] [address] [place] [address] Missy Milner RN [address] [place] [address] Social History Tobacco Use Types Packs/Day Years [...] on filedocumented in this encounter Care Teams Skoog Operator Relationship Specialty Start Date End Date Missy Milner RN [address] [place] [address] Registered Nurse Family Medicine 04/23/25 Conor Vidal 04/23/25 documented as of this encounter
--- OUTSIDE RECORDS SUMMARY | 2025-07-11 16:28 | XMS_ITS | Clinical Summary ---
Author Organization [facility] Address [address] [place] [address] Phone Care Team Providers Care Clay Miller Name Role Phone [facility], Facility Primary Care Provider Pcp, Unknown Unavailable Unavailable Allergies No known active allergies Medications folic acid (FOLVITE) 1 MG tablet Take 1 mg by mouth daily. Active lactulose (CONSTULOSE) 20 gram/30 mL Soln Take 60 mL by mouth 3 (three) times a day. Active rifAXIMin (XIFAXAN) 550 mg Tab Take 550 mg by mouth 2 (two) times a day. Active thiamine (VITAMIN B-1) 100 MG tablet Take 100 mg by mouth daily. Active sucralfate (CARAFATE) 1 gram tablet Take 1 g by mouth 2 (two) times a day. Active spironolactone (ALDACTONE) 25 MG tablet Take 12.5 mg by mouth 2 (two) times a day. Hold if SBP <90 Active magnesium 200 mg tablet Take 400 mg by mouth daily. Active acetaminophen (TYLENOL) 325 mg tablet Take 650 mg by mouth every 6 (six) hours as needed for fever or pain (specific location in comments). Active bisacodyl (DULCOLAX) [address] 10 mg rectally daily as needed (For constipation if no response from milk of magnesia). Active monobasic and dibasic sodium phosphates (69466 ENEMA) 19-7 gram/[address] 1 enema rectally daily as needed (for constipation if no response from milk of magnesia and bisacodyl). Active ibuprofen (ADVIL,MOTRIN) 600 MG tablet Take 600 mg by mouth 3 (three) times a day. Active magnesium hydroxide (MOM) 400 mg/5 mL Susp Take 1,200 mg by mouth daily as needed (for constipation). Active therapeutic multivitamin tablet Take 1 tablet by mouth daily. Active carvedilol (COREG) 6.25 MG tablet Take 1 tablet (6.25 mg total) by mouth 2 (two) times a day with meals. 30 tablet 3 Active magnesium oxide (MAG-OX) 400 mg (241.3 mg elemental) tablet Take 1 tablet (400 mg total) by mouth daily. 3 Active furosemide (LASIX) 20 MG tablet Take 1 tablet (20 mg total) by mouth daily. Hold if SBP<90 30 tablet 3 Active omeprazole (PRILOSEC) 40 MG capsule Take 1 capsule (40 mg total) by mouth every 12 (twelve) hours. 3 Active Active Problems Problem Noted Date Diagnosed Date Chronic systolic heart failure 10/31/2023 Assessment & Plan (11/02/2023 10:44 AM EST): Euvolemic currently, likely started for cirrhosis Unknown ejection fraction at baseline. Hold diuretics in the setting of GI bleed. Monitor for volume overload. Alcoholic cirrhosis 10/31/2023 Assessment & Plan (10/31/2023 12:36 AM EST): History of hepatic encephalopathy. Probably at his baseline mental state. Continue home medications other than diuretics. Give ceftriaxone for SBP prophylaxis in the setting of GI bleed. Depression with anxiety 10/31/2023 Essential hypertension 10/31/2023 History of esophageal varices 10/31/2023 Acute blood loss anemia 10/31/2023 Assessment & Plan (11/02/2023 10:42 AM EST): Due to upper GI bleed, gastroenterology following Received 3 units of PRBC during the hospitalization Hemoglobin stable Transfusion goal Hgb >7 Carvedilol started for varices Upper GI bleed 10/31/2023 Assessment & Plan (11/02/2023 10:44 AM EST): 2 days of melena with coffee-ground emesis [...] advised to avoid NSAIDs Hepatic encephalopathy 10/06/2023 Assessment & Plan (10/10/2023 3:02 PM EST): Patient presented with altered mental status from [facility] where he appeared more lethargic than his baseline and was found to have ammonia level of 140 10/10: improvement, patient more conversational today Will continue lactulose Will continue Lasix, spironolactone and rifaximin Repeat ammonia level 107 on 10/07, added on for today Patient continues to be confused, AO x 1 but lethargy improved Pancytopenia 10/06/2023 Assessment & Plan (10/07/2023 9:32 AM EST): Possibly due to alcohol abuse Will continue to monitor CBC Social History Tobacco Use Types Packs/Day Years Used Date Smoking Tobacco: Unknown Tobacco Cessation:Counseling Given: Not Answered Alcohol Use Standard Drinks/Week Comments Not Currently [...] with a working camera? Not on file Intimate Partner Violence Answer Date R ecorded Are you denied basic needs s uch as food, clothing, or medical care? No 11/09/2023 In the past 12 months have y ou been in a relationship with a person who hurts, threatens, or tries to control you? No 11/09/2023 Are you denied basic needs s uch as food, clothing, or medical care? No 11/09/2023 In the past 12 months have y ou been in a relationship with a person who hurts, threatens, or tries to control you? No 11/09/2023 Sex and Gender Information Value Date Recorded Sex Assigned at Male 11/09/2023 1:44 PM EST Legal Sex Male 7:03 PM EST Gender Identity Male 11/09/2023 1:44 PM EST Sexual Orientation Not on file Last Filed Vital Signs Vital Sign Reading Time Taken Comments Blood Pressure 94/60 11/09/2023 6:06 PM EST Pulse 72 11/09/2023 6:06 PM EST Temperature 36 C (96.8 F) 11/09/2023 6:06 PM EST Respiratory Rate 18 11/09/2023 6:06 PM EST Oxygen Saturation 96% 11/09/2023 6:06 PM EST Inhaled Oxygen Concentration 7% 10/31/2023 1 0:50 AM EST Weight 52.2 kg (115 lb) 11/09/2023 4:49 PM EST Height 167.6 cm (5' 6 ) 11/09/2023 4:49 PM EST Body Mass Index 18.56 11/09/2023 4:49 PM EST Plan of Treatment Health Maintenance Due Date Last Done Comments Adult Td,Tdap Booster 1969 BLOOD PRESSURE 1969 LIPID PANEL 1969 DEPRESSION SCREENING 1981 SMOKING Hx and SMOKELESS TOBACCO SCREENING 1982 HIV ONE-TIME SCREENING (18-65 YEARS) 1987 HEPATITIS A VACCINES (1 of 2 - Risk 2-dose series) 01/27/1988 PNEUMOCOCCAL VACCINES (50+ years) (1 of 2 - PCV) 01/27/1988 COLOGUARD 2014 COLONOSCOPY 2014 COLORECTAL CANCER SCREENING 2014 FIT TEST 2014 FOBT 2014 SIGMOIDOSCOPY 2014 VIRTUAL COLONOSCOPY 2014 ZOSTER VACCINES (1 of 2) 2019 COVID-19 VACCINE ( season) 2024 POTASSIUM LEVEL 01/04/2025 01/04/2024, 02/2024, 11/15/2023, Additional history exists INFLUENZA VACCINE (#1) 2025 HEPATITIS C SCREENING Completed 01/04/2024 HIB VACCINES Aged Out No longer eligi ble based on patient's age to complete this topic MENINGOCOCCAL VACCINES (ACWY) Aged Out No longer eligible based on patient's age to complete this topic MENINGOCOCCAL VACCINES (B) Aged Out N o longer eligible based on patient's age to complete this topic Medical Devices Not on file Procedures Procedure Name Priority Date/Time Associated Diagnosis Comments HEPATITIS C ANTIBODY, QUALITATIVE Routine 01/04/2024 9:22 AM EST Need for hepatitis C screening test COMPREHENSIVE METABOLIC PANEL Routine 01/04/2024 9:22 AM EST Need for hepatitis C screening test Hepatic cirrhosis, unspecified hepatic cirrhosis type, unspecified whether ascites present Esophageal varices in alcoholic cirrhosis from Last 3 Months or Most Recently Relevant to Health Maintenance Results * (ABNORMAL) Comprehensive metabolic panel (01/04/2024 9:22 AM EST) SODIUM 137 133 - 146 mmol/L [facility] POTASSIUM 4.5 3.3 - 5.1 mmol/L [facility] CHLORIDE 105 96 - 108 mmol/L [facility] CO2 22 21 - 35 mmol/L [facility] BUN 14 6 - 19 mg/dL [facility] CREATININE 0.80 0.5 - 1.5 mg/dL [facility] GLUCOSE 104(H) 70 - 99 mg/dL [facility] ALBUMIN 4.1 3.9 - 4.8 g/dL [facility] TOTAL PROTEIN 8.1(H) 6.5 - 8.0 g/dL [facility] CALCIUM 10.4(H) 8.4 - 10.3 mg/dL [facility] ALKALINE PHOSPHATASE 118(H) 39 - 117 U/L [facility] TOTAL BILIRUBIN 0.6 0.0 - 1.2 mg/dL [facility] AST 25 0 - 37 U/L [facility] ALT 7 0 - 40 U/L [facility] GLOBULIN 4.0 1 - 4.8 g/dL [facility] EGFR 105 >59 mL/min/1.7 3m2 [facility] Comment:Estimated glomerular filtration rate calculated using the CKD-EPI refit equation. ANION GAP 15 10 - 20 mmol/L [facility] Blood 01/04/2024 9:22 AM EST 01/04/2024 9:53 AM EST Missy WALLACE [facility] BLOOD ORDERABLES Fin al Result Performing Organization Address City/[facility]/ZIP Co de Phone Number [address] [address] * Hepatitis C antibody, qualitative (01/04/2024 9:22 AM EST) HCV NON-REACTIV E NON-REACTI VE [facility] Blood 01/04/2024 9:22 AM EST 01/04/2024 9:53 AM EST Missy WALLACE LAB BLOOD ORDERABLES Fin al Result Performing Organization Address [facility]/[place] Co de Phone Number [address] [address] from Last 3 Months or Most Recently Relevant to Health Maintenance Insurance [facility] C3 ACO [facility] C3 ACO C3 ACO C3 ACO C3 ACO [employer] [employer] [id number] [facility] C3 ACO [facility] C3 ACO Advance Directives For more information, please contact: [phone] (9AM - 5PM [facility], Monday-Monday) Documents on File Type Date Recorded Patient Chainstitch Seat Joiner Expl anation Healthcare Proxy 10/09/2023 10:49 AM heal thcare proxy * DNR/DNI (No CPR/No Intubation) (Latest Code Status on File) Date Activated Date Inactivated Comments 10/31/2023 3:12 AM Question Answer Comments Code Status Confirmed With: Patient * Full Code Date Activated Date Inactivated Comments 10/11/2023 2:30 PM 10/31/2023 3:12 AM Question Answer Comments Code Status Confirmed With: Patient * DNR/DNI (No CPR/No Intubation) Date Activated Date Inactivated Comments 10/09/2023 3:13 PM 10/11/2023 2:30 PM Question Answer Comments Code Status Confirmed With: Family * Full Code Date Activated Date Inactivated Comments 10/06/2023 10:13 PM 10/09/2023 3:13 PM Question Answer Comments Code Status Confirmed With: Patient Healthcare Agents on File Name Relationship Healthcare Agent Gapr danyell Lopez Guillermo Lobato .Primary Health Care Agent (Proxy form on file) Care Teams Clay Miller Relationship Specialty Start Date End Date [facility], Marya, [address] [place] [address] PCP - General 10/07/23 Pcp, Unknown 10/07/23 Additional Source Comments The information contained in this document represents components of the legal health record. It is not the complete legal health record.[facility]
--- OUTSIDE RECORDS SUMMARY | 2025-07-11 16:28 | XMS_ITS | Encounter Summary ---
Author Organization [facility] Address [address] [place] [address] [place] [address] Care Team Providers Care Vision Impaired Teacher Name Role Phone Missy Milner RN Unavailable [phone] Conor Vidal Unavailable Encounter Details Date Type Department Care Team (Latest Contact Info) Description 06/19/2025 Results Follow-Up [facility] [address] [place] [address] External Provider, [facility] CT Chest w/ Contrast Social History Tobacco Use Types Packs/Day Years [...] on filedocumented in this encounter Care Teams Vision Impaired Teacher Relationship Specialty Start Date End Date Missy Milner RN [address] [place] [address] Registered Nurse Family Medicine 04/23/25 Conor Vidal 04/23/25 documented as of this encounter
--- OUTSIDE RECORDS SUMMARY | 2025-07-11 16:28 | XMS_ITS ---
Author Organization [facility] Address [address] [place] [address] 7 [place] [address] Care Team Providers Care Roulette Dealer Name Role Phone Missy Milner RN Unavailable [phone] Conor Vidal Unavailable [facility] Status:Outreach In Progress (Enrolling) Start date:04/23/2025 Enrollment reason:ADT Feed Overview ADT-admitted [facility] 04/22/25 Case Team Name Relationship Phone Conor Vidal(Responsible Staff) [phone] Continued Care and Services Coordination
--- OUTSIDE RECORDS SUMMARY | 2025-07-11 16:28 | XMS_ITS | Encounter Summary ---
Author Organization [facility] Address [address] [facility] [address] [place] [address] Phone Care Team Providers Care Acid Retort Operator Name Role Phone [facility], [facility] Primary Care Provider Pcp, Unknown Unavailable Unavailable Encounter Details Date Type Department Care Team (Late st Contact Info) Description 02/02/2024 Procedure Pass [facility] Endoscopy Admitting Dept Virtual Department [address] [place] [address] Social History Tobacco Use Types Packs/Day Years [...] on filedocumented in this encounter Care Teams Acid Retort Operator Relationship Specialty Start Date End Date [facility] [address] [place] [address] PCP - General 10/07/23 Pcp, Unknown 10/07/23 documented as of this encounter Additional Source Comments The information contained in this document represents components of the legal health record. It is not the complete legal health record.[facility]
--- OUTSIDE RECORDS SUMMARY | 2025-07-11 16:28 | XMS_ITS | Encounter Summary ---
Author Organization [facility] Address [address] [place] [address] [address] [place] [address] Care Team Providers Care Textile Technologist Name Role Phone Missy Milner RN Unavailable [phone] YoungConor Unavailable Reason for Visit * Reason Onset Date Comments Needs PAYROLL COORDINATOR Appt 07/07/2025 Encounter Details Date Type Department Care Team ([facility] st Contact Info) Description 07/07/2025 Telephone [facility] MEDICINE [address] [place] [address] Mihaela Zhong RN [address] [place] [address] Needs PAYROLL COORDINATOR Appt Social History Tobacco Use Types Packs/Day Years Used Date Smoking Tobacco: Never Assessed Sex and Gender Information Value Date Recorded Sex Assigned at Male 11/23/2022 11:29 AM EST Legal Sex Male 11:26 AM EST Gender Identity Male 11/23/2022 11:29 AM EST Sexual Orientation Straight 01/11/2024 8: 14 AM EST documented as of this encounter Miscellaneous Notes * Telephone Encounter - Megan Herrera - 07/07/2025 11:29 AM EDT Outgoing call to pt to inquire if pt is still interested in becoming a pt of the [facility]. No answer. Left message.. * Telephone Encounter - Mihaela Zhong RN - 07/07/2025 7:33 AM EDT According to chart, pt has had several no shows and canceled appts. Pt did see Dr Guerra in Walk [facility] for PAYROLL COORDINATOR visit but pt is homeless according to chart- not sure if [facility] is the best location for the pt- also Dr Guerra is leaving the health [facility]. Please out reach and attempt schedule with [facility] provider. Thank you. documented in this encounter Plan of Treatment Not on file documented as of this encounter Visit Diagnoses Not on filedocumented in this encounter Care Teams Textile Technologist Relationship Specialty Start Date End Date Missy Milner RN [address] [place] [address] Registered Nurse Family Medicine 04/23/25 Conor Vidal 04/23/25 documented as of this encounter
--- OUTSIDE RECORDS SUMMARY | 2025-07-11 16:28 | XMS_ITS | Encounter Summary ---
Author Organization [facility] Address [address] [facility] [facility] [address] [place] [address] Phone Care Team Providers Care Human Service Worker Name Role Phone [facility], [facility] Primary Care Provider Pcp, Unknown Unavailable Unavailable Encounter Details Date Type Department Care Team (Late st Contact Info) Description 01/04/2024 Transcribe Orders [facility] Laboratory [address] [place] [id number] Missy Miranda PA [address] [place] [phone] [email or web address] Need for hepatitis C screening test (Primary Dx); Hepatic cirrhosis, unspecified hepatic cirrhosis type, unspecified whether ascites present; Esophageal varices in alcoholic cirrhosis Social History Tobacco Use Types Packs/Day Years [...] on file documented as of this encounter Results * Ferritin (01/04/2024 9:22 AM EST) FERRITIN 168 30 - 400 ug/L [facility] Blood 01/04/2024 9:22 AM EST 01/04/2024 9:53 AM EST Missy WALLACE LAB BLOOD ORDERABLES Fin al Result Performing Organization Address City/[facility] Co de Phone Number [address] [address] * (ABNORMAL) PT-INR (01/04/2024 9:22 AM EST) [facility] PT 15.9(H) 10.2 - 12.9 sec [facility] INR 1.4(H) 0.9 - 1.1 [facility] Comment:Therapeutic range fo r oral Vitamin K antagonists: 2.0-3.5 Blood 01/04/2024 9:22 AM EST 01/04/2024 9:53 AM EST Missy WALLACE LAB BLOOD ORDERABLES Fin al Result Performing Organization Address City/[facility]/ZIP Co de Phone Number [address] [address] * Iron and iron binding capacity (01/04/2024 9:22 AM EST) IRON 81 45 - 160 ug/dL [facility] IRON BINDING CAPACITY 326 228 - 428 ug/dL [facility] TRANSFERRIN SATURAT. 25 20 - 55 % [facility] Blood 01/04/2024 9:22 AM EST 01/04/2024 9:53 AM EST Missy WALLACE LAB BLOOD ORDERABLES Fin al Result Performing Organization Address [facility] de Phone Number [address] [address] * Lipase (01/04/2024 9:22 AM EST) LIPASE 35 16 - 63 U/L [facility] Blood 01/04/2024 9:22 AM EST 01/04/2024 9:53 AM EST Missy WALLACE LAB BLOOD ORDERABLES Fin al Result Performing Organization Address [facility] de Phone Number [address] [address] * Hepatitis C antibody, qualitative (01/04/2024 9:22 AM EST) HCV NON-REACTIV E NON-REACTI VE [facility] Blood 01/04/2024 9:22 AM EST 01/04/2024 9:53 AM EST Missy WALLACE LAB BLOOD ORDERABLES Fin al Result Performing Organization Address [facility] de Phone Number [address] [address] * Hepatitis B surface antibody (01/04/2024 9:22 AM EST) HBV SURFACE ANTIBODY Negative [facility] Comment: Unvaccinated: Negative Vaccinated: Positive Blood 01/04/2024 9:22 AM EST 01/04/2024 9:53 AM EST Missy WALLACE LAB BLOOD ORDERABLES Fin al Result Performing Organization Address City/[facility]/ZIP Co de Phone Number [address] [address] * Hepatitis B surface antigen (01/04/2024 9:22 AM EST) HBV SURFACE ANTIGEN NON-REACTI VE NON-REACTI VE [facility] Blood 01/04/2024 9:22 AM EST 01/04/2024 9:53 AM EST Missy WALLACE LAB BLOOD ORDERABLES Fin al Result Performing Organization Address [facility] Co de Phone Number [address] [address] * Hepatitis B core antibody, total (01/04/2024 9:22 AM EST) HEP B CORE AB, TOT NON-REACTI VE NON-REACTI VE [facility] Blood 01/04/2024 9:22 AM EST 01/04/2024 9:53 AM EST Missy WALLACE LAB BLOOD ORDERABLES Fin al Result Performing Organization Address [facility] Co de Phone Number [address] [address] * HEPATITIS A ANTIBODY, TOTAL (01/04/2024 9:22 AM EST) HAV TOTAL AB NON-REACTI VE NON-REACTI VE [facility] Blood 01/04/2024 9:22 AM EST 01/04/2024 9:53 AM EST Missy WALLACE LAB BLOOD ORDERABLES Fin al Result Performing Organization Address [facility] Co de Phone Number [address] [address] * (ABNORMAL) GGT (Gamma glutamyl transferase) (01/04/2024 9:22 AM EST) GGT 54(H) 11 - 51 U/L [facility] Blood 01/04/2024 9:22 AM EST 01/04/2024 9:53 AM EST Missy WALLACE LAB BLOOD ORDERABLES Fin al Result [address] [address] * C-Reactive Protein (01/04/2024 9:22 AM EST) Pathologist [facility] C REACTIVE PROTEIN <3.0 0.0 - 4.0 mg/L [facility] Blood 01/04/2024 9:22 AM EST 01/04/2024 9:53 AM EST Missy WALLACE LAB BLOOD ORDERABLES Fin al Result Performing Organization Address City/[facility] Co de Phone Number [address] [address] * (ABNORMAL) Comprehensive metabolic panel (01/04/2024 9:22 AM EST) Pathologist [facility] SODIUM 137 133 - 146 mmol/L [facility] POTASSIUM 4.5 3.3 - 5.1 mmol/L [facility] CHLORIDE 105 96 - 108 mmol/L [facility] CO2 22 21 - 35 mmol/L [facility] BUN 14 6 - 19 mg/dL [facility] CREATININE 0.80 0.5 - 1.5 mg/dL [facility] GLUCOSE 104(H) 70 - 99 mg/dL [facility] ALBUMIN 4.1 3.9 - 4.8 g/dL [facility] TOTAL PROTEIN 8.1(H) 6.5 - 8.0 g/dL [facility] CALCIUM 10.4(H) 8.4 - 10.3 mg/dL [facility] ALKALINE PHOSPHATASE 118(H) 39 - 117 U/L [facility] TOTAL BILIRUBIN 0.6 0.0 - 1.2 mg/dL [facility] AST 25 0 - 37 U/L [facility] ALT 7 0 - 40 U/L [facility] GLOBULIN 4.0 1 - 4.8 g/dL [facility] EGFR 105 >59 mL/min/1.7 3m2 [facility] Comment:Estimated glomerular filtration rate calculated using the CKD-EPI refit equation. ANION GAP 15 10 - 20 mmol/L [facility] Blood 01/04/2024 9:22 AM EST 01/04/2024 9:53 AM EST us Missy WALLACE LAB BLOOD ORDERABLES Fin al Result Performing Organization Address City/State/[facility] Co de Phone Number [address] [address] * (ABNORMAL) CBC and differential (01/04/2024 9:22 AM EST) WBC 3.17(L) 4.00 - 11.00 K/uL [facility] RBC 3.41(L) 4.23 - 5.82 M/uL [facility] HGB 10.7(L) 13.4 - 17.5 g/dL [facility] HCT 33.8(L) 37.0 - 51.0 % [facility] PLT 64(L) 140 - 430 K/uL [facility] Comment:Consistent with prev ious result. MCV 99.1(H) 78.0 - 97.0 fL [facility] MCH 31.4 25.0 - 33.0 pg [facility] MCHC 31.7(L) 32.0 - 36.0 g/dL [facility] RDW 13.0 11.0 - 15.0 % [facility] MPV 13.2(H) 8.4 - 12.8 fl [facility] DIFF METHOD Auto [facility] NEUTS 57.2 43.0 - 75.0 % [facility] LYMPHS 24.9 18.2 - 47.4 % [facility] MONOS 12.0(H) 4.00 - 11.00 % [facility] EOS 4.7 0.0 - 8.0 % [facility] BASOS 0.9 0.0 - 2.0 % [facility] Granulocytes, immature (%) 0.3 0.0 - 0.9 % [facility] ABSOLUTE NEUTS 1.81 1.80 - 7.70 K/uL [facility] ABSOLUTE LYMPHS 0.79(L) 1.00 - 3.10 K/uL [facility] ABSOLUTE MONOS 0.38 0.20 - 0.80 K/uL [facility] ABSOLUTE EOS 0.15 0.00 - 0.80 K/uL [facility] ABSOLUTE BASOS 0.03 0.00 - 0.09 K/uL [facility] Granulocytes, immature 0.01 0.00 - 0.05 K/uL [facility] Blood 01/04/2024 9:22 AM EST 01/04/2024 9:53 AM EST Missy WALLACE LAB BLOOD ORDERABLES Fin al Result [address] [address] * (ABNORMAL) Immunoglobulin A (01/04/2024 9:22 AM EST) Pathologist [facility] IgA 436(H) 70 - 400 mg/dL [facility] Blood 01/04/2024 9:22 AM EST 01/04/2024 9:53 AM EST [facility] Nathaly Miranda [place] LAB BLOOD ORDERABLES Fin al Result [address] [address] * Tissue transglutaminase IgA (01/04/2024 9:22 AM EST) TTG IGA ANTIBODY 1.9 <4.0 (Negative) U/mL [facility] [address] Blood 01/04/2024 9:22 AM EST 01/04/2024 9:53 AM EST Missy WALLACE LAB BLOOD ORDERABLES Fin al Result [facility] [address] [place] [address] * Smooth Muscle Antibody (01/04/2024 9:22 AM EST) SMOOTH MUSCLE AB POSITIVE AT 1:20 [facility] Comment: Performing Physician, Max Jimenez M.D., [id number] Normal: Negative at 1:20 Blood 01/04/2024 9:22 AM EST 01/04/2024 9:53 AM EST Missy WALLACE LAB BLOOD ORDERABLES Fin al Result Performing Organization Address [facility] Co de Phone Number [address] [address] * Ceruloplasmin (01/04/2024 9:22 AM EST) CERULOPLASMIN 31 20 - 60 mg/dL [facility] Blood 01/04/2024 9:22 AM EST 01/04/2024 9:53 AM EST Missy WALLACE LAB BLOOD ORDERABLES Fin al Result Performing Organization Address [facility] Co de Phone Number [address] [address] * (ABNORMAL) Antinuclear antibody (JERMAIN) (01/04/2024 9:22 AM EST) JERMAIN SCREEN ON HEP 2 Positive(A ) Negative [facility] Comment:An JERMAIN Titer has bee n reflexed. The results will follow. Blood 01/04/2024 9:22 AM EST 01/04/2024 9:53 AM EST Missy WALLACE LAB BLOOD ORDERABLES Fin al Result Performing Organization Address City/[facility] Co de Phone Number MENDOZA BISMARK [address] [address] * Anti-Mitochondrial Antibody (AMA) (01/04/2024 9:22 AM EST) MITOCHONDRIAL AB NEGATIVE AT 1:20 [facility] Comment: Performing Physician, Max Jimenez M.D., [id number] Normal: Negative at 1:20 Blood 01/04/2024 9:22 AM EST 01/04/2024 9:53 AM EST Missy WALLACE LAB BLOOD ORDERABLES Fin al Result [address] [address] * Amylase (01/04/2024 9:22 AM EST) Pathologist [facility] AMYLASE 86 28 - 100 U/L [facility] Blood 01/04/2024 9:22 AM EST 01/04/2024 9:53 AM EST Missy WALLACE LAB BLOOD ORDERABLES Fin al Result Performing Organization Address City/[facility]/ZIP Co de Phone Number [address] [address] * AFP (non-maternal specimens) (01/04/2024 9:22 AM EST) Pathologist [facility] AFP (NON-MATERNAL) 4.7 <7.9 ng/mL [facility] Comment: Test Methodology Filipe [id number] Patient results determined by assays using different manufacturers or methods may not be comparable. Blood 01/04/2024 9:22 AM EST 01/04/2024 9:53 AM EST Missy WALLACE LAB BLOOD ORDERABLES Fin al Result Performing Organization Address City/[facility]/ZIP Co de Phone Number [address] [address] * Qpytf-[id number] phenotyping (01/04/2024 9:22 AM EST) ALPHA 1 ANTITRYPSIN 173 100 - 190 mg/dL [facility] MED/[facility] [address] Comment: (NOTE) ADDITIONAL INFORMATION Method: Nephelometry A1A PHENOTYPE MM bands [facility] [address] Comment: (NOTE) A single M isoform is detected. In the context of a normal [id number] concentration, this is consistent with an MM phenotype. ADDITIONAL INFORMATION Method: Isoelectric Focusing, This assay identifies the phenotype of the circulating [id number] (A1A) protein. If the patient is on replacement therapy or has been recently transfused, the phenotype will detect patient and replacement or transfused plasma A1A protein. This test also cannot detect a null allele which could be responsible for an A1A deficiency. Blood 01/04/2024 9:22 AM EST 01/04/2024 9:53 AM EST Missy WALLACE LAB BLOOD ORDERABLES Fin al Result [facility] MED[facility] [address] [place] [address] documented in this encounter Visit Diagnoses Diagnosis Need for hepatitis C screening test- Primary Special screening examination for other specified viral diseases Hepatic cirrhosis, unspecified hepatic cirrhosis type, unspecified whether ascites present Esophageal varices in alcoholic cirrhosis Esophageal varices without mention of bleeding documented in this encounter Care Teams Human Service Worker Relationship Specialty [facility] [address] [place] [address] PCP - General 10/07/23 Pcp, Unknown 10/07/23 documented as of this encounter Additional Source Comments The information contained in this document represents components of the legal health record. It is not the complete legal health record.[facility]
--- OUTSIDE RECORDS SUMMARY | 2025-07-11 16:28 | XMS_ITS | Encounter Summary ---
Author Organization [employer] Address [address] [place] [address] 7t [place] [address] Care Team Providers Care Billet Heater Operator Name Role Phone Missy Milner RN Unavailable [phone] Conor Vidal Unavailable Encounter Details Date Type Department Care Team (Late st Contact Info) Description 07/06/2025 Orders Only GENERIC EXTERNAL DATA DEPARTMENT [...] TROPONIN I Routine 07/06/2025 5:58 PM EDT ETHANOL Routine 07/06/2025 5:58 PM EDT CBC WITH AUTO DIFFERENTIAL Routine 07/06/2025 5:58 PM EDT B TYPE NATRIURETIC PEPTIDE (BNP) Routine 07/06/2025 5:58 PM EDT COMPREHENSIVE METABOLIC PANEL Routine 07/06/2025 5:58 PM EDT documented in this encounter Results * XR Chest 1 View (07/06/2025 7:16 PM EDT) Anatomical Region Laterality Modality Chest Radiographic Lamar ging 07/06/2025 7:16 PM EDT Narrative 07/06/2025 7:18 PM EDT [address] [address] XRay Report Signed Patient: Charbel Delgado MR#: [id number] : 1970 Acct:[id number] Age/Sex: 55 / M ADM Date: 07/06/25 Loc: HO.ED Attending Dr: Ordering Physician: Maryann Cee Date of Service: 07/06/25 Procedure(s): XR chest 1V Accession Number(s): [id number] cc: [facility]; Maryann Cee CLINICAL HISTORY: hypoxia 1 [...] in OV> 07/06/251916 DD/ 15 TD/TT: 07/06/251915 Intensive Care Medicine Specialist: Procedure Note Donotuseinterpreter, Image - 07/06/[address] [address] XRay Report Signed Patient: Rod DelgadoR#: [id number] : 1970Acct:[id number] Age/Sex: 55 / MADM Date: 07/06/25 Loc: .ED Attending Dr: Ordering Physician: Maryann Cee Date of Service: 07/06/25 Procedure(s): XR chest 1V Accession Number(s): [id number] cc: [facility]; Maryann Cee CLINICAL HISTORY: hypoxia 1 [...] in OV> 07/06/251916 DD/ 15 TD/TT: 07/06/251915 Intensive Care Medicine Specialist: [facility] External Provider IMG XR PROCEDURES Edited Result - Final * (ABNORMAL) Drug Monitoring, Panel 1, Screen, Urine (07/06/2025 6:08 PM EDT) Opiate Screen Urine Not Detected Not Detect [facility] Comment:Opiate cut-off is 30 0 ng/mL.Positive results are unconfirmed and should not be used fornon-medical purposes. Barbiturates, Urine POSITIVE(A) Not Detect [facility] Comment:Barbiturate cut-off is 200 ng/mL.Positive results are unconfirmed and should not be used fornon-medical purposes. Phencyclidine Screen Urine Not Detected Not Detect [facility] Comment:Phencyclidine cut-of f is 25 ng/mL.Positive results are unconfirmed and should not be used fornon-medical purposes. Amphetamine Screen Urine Not Detected Not Detect [facility] Comment:Amphetamine cut-off is 1000 ng/mL.Positive results are unconfirmed and should not be used fornon-medical purposes. Benzodiazepines Screen Urine Not Detected Not Detect [facility] Comment:Benzodiazepine cut-o ff is 200 ng/mL.Positive results are unconfirmed and should not be used fornon-medical purposes. Cocaine Screen Urine Not Detected Not Detect [facility] Comment:Cocaine cut-off is 3 00 ng/mL.Positive results are unconfirmed and should not be used fornon-medical purposes. Cannabinoid Screen Urine Not Detected Not Detect [facility] Comment:Cannabinoid cut-off is 50 ng/mL.Positive results are unconfirmed and should not be used fornon-medical purposes. Methadone Screen, Urine Not Detected Not Detect ng/mL [facility] Comment:Methadone cut-off is 300 ng/mL.Positive results are unconfirmed and should not be used fornon-medical purposes. FENTANYL URINE Not Detected Not Detect [facility] Comment:Fentanyl cut-off is 1 ng/mL.Positive results are unconfirmed and should not be used fornon-medical purposes. Oxycodone Urine Screen Not Detected Not Detect ng/mL [facility] Comment:Oxycodone cut-off is 100 ng/mL.Positive results are unconfirmed and should not be used fornon-medical purposes. Buprenorphine Screen Not Detected Not Detect ng/mL [facility] Comment:Buprenorphine cut-of f is 5 ng/mL.Positive results are unconfirmed and should not be used fornon-medical purposes. 07/06/2025 6:08 PM EDT 07/06/2025 6:11 PM EDT [employer] External Data Provider LAB URINE ORDERAB LES Final Result Performing Organization Address City/[facility] Co de Phone Number [facility] [address] [place] [phone] * High Sensitivity Troponin I (07/06/2025 5:58 PM EDT) TROPONIN I HIGH SENSITIVITY <2.7 <3.5 - 35.0 ng/L [facility] Comment:The [place] high sens itivity Troponin-I results should beused in conjunction with other diagnostic information suchas ECG, clinical observations and information, and patientsymptoms to aid in the diagnosis of NE. 07/06/2025 5:58 PM EDT 07/06/2025 6:06 PM EDT us Generic External Data Provider LAB BLOOD ORDERAB LES Final Result [facility] [address] [place] [phone] [phone] * B Type Natriuretic Peptide (BNP) (07/06/2025 5:58 PM EDT) Pathologist [facility] B Type Natriuretic Peptide 100 <100 pg/mL [facility] 07/06/2025 5:58 PM EDT 07/06/2025 6:06 PM EDT Generic External Data Provider LAB BLOOD ORDERAB LES Final Result Performing Organization Address [facility] Co de Phone Number [facility] [address] [place] [phone] * (ABNORMAL) Ethanol (07/06/2025 5:58 PM EDT) Pathologist [facility] ETHANOL (MG/DL) IN SER/PLAS 399(HH) mg/dL [facility] Comment:Serum/plasma ethanol results are to be used formedical/treatment purposes only. 07/06/2025 5:58 PM EDT 07/06/2025 6:06 PM EDT Generic External Data Provider LAB BLOOD ORDERAB LES Final Result Performing Organization Address [facility] de Phone Number [facility] [address] [place] [phone] * (ABNORMAL) Comprehensive Metabolic Panel (07/06/2025 5:58 PM EDT) [facility] Sodium 143 135 - 145 mmol/L [facility] Potassium 3.6 3.3 - 5.1 mmol/L [facility] Chloride 112(H) 96 - 108 mmol/L [facility] Carbon Dioxide 18(L) 22 - 29 mmol/L [facility] Anion Gap 17 12 - 20 [facility] Urea Nitrogen (BUN) 10 9 - 16 mg/dL [facility] Creatinine, Serum 0.95 0.5 - 1.4 mg/dL [facility] Creatinine Clr Calc Pharmacy 69.6 [facility] Comment:eGFR (calculated fro m the MDRD study equation) and eCrCl(calculated from the Cockcroft-Gault equation) are based ondifferent parameters and may not yield comparable results.If eCrCl result is absurd, please check patient'sheight/weight. Estimated Glomerular Filt Rate >60 [facility] Comment:Chronic Kidney Disea se: Estimated GFR < 60 mL/min/1.25n2Mhwsfu Kidney Disease: Estimated GFR < 15 mL/min/1.73m2 Glucose 110 60 - 115 mg/dL [facility] Calcium 8.1(L) 8.4 - 10.2 mg/dL [facility] Bilirubin, Total 0.6 0.0 - 1.0 mg/dL [facility] Aspartate Amino Transferase 51(H) 5 - 37 U/L [facility] Alanine Aminotransferase 11 0 - 40 U/L [facility] Total Protein 8.0 6.5 - 8.0 g/dL [facility] Albumin Level 3.5 3.5 - 5.0 g/dL [facility] Alkaline Phosphatase 158(H) 39 - 117 U/L [facility] 07/06/2025 5:58 PM EDT 07/06/2025 6:06 PM EDT us Generic External Data Provider LAB BLOOD ORDERAB LES Final Result [facility] [address] [place] [phone] * (ABNORMAL) CBC auto differential (07/06/2025 5:58 PM EDT) White Blood Count 3.8(L) 4.8 - 10.8 X10*3/uL [facility] Red Blood Count 3.19(L) 4.60 - 5.80 X10*6/uL [facility] Hemoglobin 9.9(L) 14.0 - 18.0 g/dl [facility] Hematocrit 29.9(L) 42.0 - 52.0 % [facility] Mean Corpuscular Volume 93.7 80.0 - 98.0 fL [facility] Mean Corpuscular Hemoglobin 31.0 27.0 - 33.0 pg [facility] Mean Corpuscular HGB Conc 33.1 31.0 - 36.0 g/dl [facility] Red Cell Distribution Width 17.9(H) 11.0 - 16.0 % [facility] Platelet Count 60(L) 160 - 400 X10*3/uL [facility] Mean Platelet Volume 11.8 9.4 - 12.4 fL [facility] Neutrophils Percent Auto 55.0 45 - 73 % [facility] Imm Gran Pct Auto 0.5(H) 0.0 - 0.4 % [facility] Lymphocytes Percent Auto 30.6 20 - 40 % [facility] Monocytes Percent Auto 8.8 2 - 11 % [facility] Eosinophils Percent Auto 3.5 0 - 4 % [facility] Basophils Percent Auto 1.6 0 - 2 % [facility] NRBC Pct Auto 0.0 0.0 - 0.2 /100WBC [facility] Neutrophils Absolute Auto 2.1 2.0 - 8.3 x10*3/uL [facility] Imm Gran Abs Auto 0.02 0.00 - 0.03 X10*3/uL [facility] Lymphocytes Absolute Auto 1.2 1.2 - 4.9 X10*3/uL [facility] Monocytes Absolute Auto 0.3 0.1 - 1.2 X10*3/uL [facility] Eosinophils Absolute Auto 0.1 0.0 - 0.4 X10*3/uL [facility] Basophils Absolute Auto 0.1 0.0 - 0.2 X10*3/uL [facility] NRBC Abs Auto 0.000 0.0 - 0.012 X10*3/uL [facility] 07/06/2025 5:58 PM EDT 07/06/2025 6:06 PM EDT us Generic External Data Provider LAB BLOOD ORDERAB LES Final Result [facility] [address] [place] [phone] documented in this encounter Visit Diagnoses Not on filedocumented in this encounter Care Teams Billet Heater Operator Relationship Specialty Start Date End Date Missy Milner RN [address] [place] [phone] Registered Nurse Family Medicine 04/23/25 Conor Vidal 04/23/25 documented as of this encounter
[2025-07-11 19:20] VITALS: BP 94/49; PULSE 72; RESP 18; O2SAT 97
--- NOTE | 2025-07-11 19:25 | PC.NURSE ---
this RN assumed care of this pt @1900, pt appears to be sleeping in stretcher, even unlabored chest rise and fall noted
[2025-07-11 23:04] VITALS: BP 93/48; PULSE 68; RESP 16; O2SAT 94
[2025-07-12 02:17] VITALS: BP 100/54; PULSE 69; RESP 18; O2SAT 95
[2025-07-12 05:09] VITALS: BP 98/45; PULSE 72; RESP 18; O2SAT 94
[2025-07-12 06:33] VITALS: BP 123/62; PULSE 78; RESP 20; O2SAT 94
[2025-07-12 06:57] VITALS: BP 123/62; PULSE 78; RESP 20; TEMP 36.7; O2SAT 94
== END 2025-07-12 06:58 | disposition home or self-care (01) ==
PROVIDERS: Emergency Provider Emergency Medicine
DX: F10.129 Alcohol abuse with intoxication, unspecified (principal); Y90.9 Presence of alcohol in blood, level not specified
CPT/HCPCS: 99283; 99284

== ENCOUNTER 2025-07-12 16:41 | Emergency (ER) | payer MEDICAID, SELFPAY ==
--- NOTE | ~2025-07-12 | XR_ITS ---
CLINICAL HISTORY: Hypoxic 1 view chest x-ray Comparison: CR - XR CHEST 1V - 07/06/25 18:35 EDT CR - XR CHEST 1V - 07/02/25 20:44 EDT Findings: Mild bilateral perihilar opacity. Heart size is normal. No acute fracture. IMPRESSION: Mild atypical pneumonia. This document has been electronically signed by: Shanthi Tom MD on 07/12/2025 18:02:00
[2025-07-12 16:42] VITALS: BP 105/52; BP 98/52; PULSE 72; PULSE 76; RESP 16; TEMP 36.9; O2SAT 88; O2SAT 89; BMI 23.3
[2025-07-12 16:51] VITALS: PULSE 77; RESP 16; O2SAT 95
--- OUTSIDE RECORDS SUMMARY | 2025-07-12 17:06 | XMS_ITS | Encounter Summary ---
Author Organization [employer] Address [address] [place] [address] 7 [place] [address] Care Team Providers Care Ui Software Developer Name Role Phone Missy Milner RN Unavailable [phone] Conor Vidal Unavailable Encounter Details Date Type Department Care Team ([facility] st Contact Info) Description 07/08/2025 Patient Outreach [facility] [address] [place] [address] Missy Milner RN [address] [place] [address] Social History Tobacco Use Types Packs/Day Years [...] on filedocumented in this encounter Care Teams Ui Software Developer Relationship Specialty Start Date End Date Missy Milner RN [address] [place] [address] Registered Nurse Family Medicine 04/23/25 Conor Vidal 04/23/25 documented as of this encounter
--- OUTSIDE RECORDS SUMMARY | 2025-07-12 17:06 | XMS_ITS | Encounter Summary ---
Author Organization [employer] Address [address] [place] [address] [place] [address] Care Team Providers Care Mechanical Service Specialist Name Role Phone Missy Milner RN Unavailable [phone] Conor Vidal Unavailable Encounter Details Date Type Department Care Team (Latest Contact Info) Description 06/19/2025 Results Follow-Up [facility] Information Management [address] [place] [address] External Provider, [facility] CT Chest w/ Contrast Social History [...] on filedocumented in this encounter Care Teams Mechanical Service Specialist Relationship Specialty Start Date End Date Missy Milner RN [address] [place] [address] Registered Nurse Family Medicine 04/23/25 Conor Vidal 04/23/25 documented as of this encounter
--- OUTSIDE RECORDS SUMMARY | 2025-07-12 17:06 | XMS_ITS | Encounter Summary ---
Author Organization [facility] Address [address] [facility] [address] [place] [phone] Phone Care Team Providers Care Police Captain Precinct Name Role Phone [facility], [facility] Primary Care Provider Pcp, Unknown Unavailable Unavailable Encounter Details Date Type Department Care Team ([facility] st Contact Info) Description 10/31/2023 Procedure Pass [facility] Endoscopy Admitting Dept Virtual Department [address] [place] [phone] Social History Tobacco Use Types Packs/Day Years [...] on filedocumented in this encounter Care Teams Police Captain Precinct Relationship Specialty Start Date End Date [facility] [address] [place] [address] PCP - General 10/07/23 Pcp, Unknown 10/07/23 documented as of this encounter Additional Source Comments The information contained in this document represents components of the legal health record. It is not the complete legal health record.[facility]
--- OUTSIDE RECORDS SUMMARY | 2025-07-12 17:06 | XMS_ITS | Encounter Summary ---
Author Organization [employer] Address [address] [place] [address] [place] [address] Care Team Providers Care Sport Shoe Spike Assembler Name Role Phone Missy Milner RN Unavailable Conor Vidal Unavailable Encounter Details Date Type Department Care Team ([facility] st Contact Info) Description 06/19/2025 Results Follow-Up [facility] [address] [place] [address] Provider, Generic External Data XR Chest 2 [...] on filedocumented in this encounter Care Teams Sport Shoe Spike Assembler Relationship Specialty Start Date End Date Missy Milner RN [address] [place] [address] Registered Nurse Family Medicine 04/23/25 Conor Vidal 04/23/25 documented as of this encounter
--- OUTSIDE RECORDS SUMMARY | 2025-07-12 17:06 | XMS_ITS | Encounter Summary ---
Author Organization [facility] Address [address] [facility] [address] [place] [phone] Phone Care Team Providers Care Nuisance Wildlife Specialist Name Role Phone Elbert Hayward MD Primary Care Provider [facility], [facility] Primary Care Provider Pcp, Unknown Unavailable Unavailable Encounter Details Date Type Department Care Team (Late st Contact Info) Description 10/06/2023 Procedure Pass [facility], Ct Scan - [address] [address] Social History Tobacco Use Types Packs/Day Years [...] on filedocumented in this encounter Care Teams Nuisance Wildlife Specialist Relationship Specialty Start Date End Date Elbert Hayward MD PCP - General 05/13/14 10/06/23 [facility], MD Marya [address] [place] [address] PCP - General 10/07/23 Pcp, Unknown 10/07/23 documented as of this encounter Additional Source Comments The information contained in this document represents components of the legal health record. It is not the complete legal health record.[facility]
--- OUTSIDE RECORDS SUMMARY | 2025-07-12 17:06 | XMS_ITS ---
Author Organization [employer] Address [address] [place] [address] [address]t [place] [address] Care Team Providers Care Armored Car Guard And Driver Name Role Phone Missy Milner RN Unavailable [phone] Conor Vidal Unavailable CM Complex Status:Outreach In Progress (Enrolling) Start date:04/23/2025 Enrollment reason:ADT Feed Overview ADT-admitted [facility] 04/22/25 Case Team Name Relationship Phone Missy Milner RN(Responsible Staff) Registered Nurse [phone] Continued Care and Services Coordination
--- OUTSIDE RECORDS SUMMARY | 2025-07-12 17:06 | XMS_ITS | Encounter Summary ---
Author Organization [facility] Address [address] [facility] [address] [place] [address] Phone Care Team Providers Care Poultry Inspector Name Role Phone [facility], [facility] Primary Care Provider Pcp, Unknown Unavailable Unavailable Encounter Details Date Type Department Care Team (Late st Contact Info) Description 01/04/2024 Transcribe Orders [facility] Laboratory [address] [place] [address] Missy Miranda PA [address] [place] [id number] [email or web address] Need for hepatitis C screening test (Primary [...] EST) FERRITIN 168 30 - 400 ug/L [facility] Blood 01/04/2024 9:22 AM EST 01/04/2024 9:53 AM EST Missy WALLACE LAB BLOOD ORDERABLES Fin al Result Performing Organization Address City/[facility] Co de Phone Number [address] [address] * (ABNORMAL) PT-INR (01/04/2024 9:22 AM EST) [facility] PT 15.9(H) 10.2 - 12.9 sec [facility] INR 1.4(H) 0.9 - 1.1 [facility] Comment:Therapeutic range fo r oral Vitamin K antagonists: 2.0-3.5 Blood 01/04/2024 9:22 AM EST 01/04/2024 9:53 AM EST Missy WALLACE LAB BLOOD ORDERABLES Fin al Result Performing Organization Address City/[facility]/ZIP Co de Phone Number [address] [address] * Iron and iron binding capacity (01/04/2024 9:22 AM EST) IRON 81 45 - 160 ug/dL [facility] IRON BINDING CAPACITY 326 228 - 428 ug/dL [facility] TRANSFERRIN SATURAT. 25 20 - 55 % [facility] Blood 01/04/2024 9:22 AM EST 01/04/2024 9:53 AM EST Missy WALLACE LAB BLOOD ORDERABLES Fin al Result Performing Organization Address [facility] de Phone Number [address] [address] * Lipase (01/04/2024 9:22 AM EST) LIPASE 35 16 - 63 U/L [facility] Blood 01/04/2024 9:22 AM EST 01/04/2024 9:53 AM EST Missy WALLACE LAB BLOOD ORDERABLES Fin al Result Performing Organization Address [facility] de Phone Number [address] [address] * Hepatitis C antibody, qualitative (01/04/2024 9:22 AM EST) HCV NON-REACTIV E NON-REACTI VE [facility] Blood 01/04/2024 9:22 AM EST 01/04/2024 9:53 AM EST Missy WALLACE LAB BLOOD ORDERABLES Fin al Result Performing Organization Address [facility] de Phone Number [address] [address] * Hepatitis B surface antibody (01/04/2024 9:22 AM EST) HBV SURFACE ANTIBODY Negative [facility] Comment: Unvaccinated: Negative Vaccinated: Positive Blood 01/04/2024 9:22 AM EST 01/04/2024 9:53 AM EST Missy WALLACE LAB BLOOD ORDERABLES Fin al Result Performing Organization Address City/[facility]/ZIP Co de Phone Number [address] [address] * Hepatitis B surface antigen (01/04/2024 9:22 AM EST) HBV SURFACE ANTIGEN NON-REACTI VE NON-REACTI VE [facility] Blood 01/04/2024 9:22 AM EST 01/04/2024 9:53 AM EST Missy WALLACE LAB BLOOD ORDERABLES Fin al Result Performing Organization Address [facility] Co de Phone Number [address] [address] * Hepatitis B core antibody, total (01/04/2024 9:22 AM EST) HEP B CORE AB, TOT NON-REACTI VE NON-REACTI VE [facility] Blood 01/04/2024 9:22 AM EST 01/04/2024 9:53 AM EST Missy WALLACE LAB BLOOD ORDERABLES Fin al Result Performing Organization Address [facility] Co de Phone Number [address] [address] * HEPATITIS A ANTIBODY, TOTAL (01/04/2024 9:22 AM EST) HAV TOTAL AB NON-REACTI VE NON-REACTI VE [facility] Blood 01/04/2024 9:22 AM EST 01/04/2024 9:53 AM EST Missy WALLACE LAB BLOOD ORDERABLES Fin al Result Performing Organization Address [facility] Co de Phone Number [address] [address] * (ABNORMAL) GGT (Gamma glutamyl transferase) (01/04/2024 9:22 AM EST) GGT 54(H) 11 - 51 U/L [facility] Blood 01/04/2024 9:22 AM EST 01/04/2024 9:53 AM EST Missy WALLACE LAB BLOOD ORDERABLES Fin al Result [address] [address] * C-Reactive Protein (01/04/2024 9:22 AM EST) Pathologist [facility] C REACTIVE PROTEIN <3.0 0.0 - 4.0 mg/L [facility] Blood 01/04/2024 9:22 AM EST 01/04/2024 9:53 AM EST Missy WALLACE LAB BLOOD ORDERABLES Fin al Result Performing Organization Address City/[facility] Co de Phone Number [address] [address] * (ABNORMAL) Comprehensive metabolic panel (01/04/2024 9:22 AM EST) Pathologist [facility] SODIUM 137 133 - 146 mmol/L [facility] POTASSIUM 4.5 3.3 - 5.1 mmol/L [facility] CHLORIDE 105 96 - 108 mmol/L [facility] CO2 22 21 - 35 mmol/L [facility] BUN 14 6 - 19 mg/dL [facility] CREATININE 0.80 0.5 - 1.5 mg/dL [facility] GLUCOSE 104(H) 70 - 99 mg/dL [facility] ALBUMIN 4.1 3.9 - 4.8 g/dL [facility] TOTAL PROTEIN 8.1(H) 6.5 - 8.0 g/dL [facility] CALCIUM 10.4(H) 8.4 - 10.3 mg/dL [facility] ALKALINE PHOSPHATASE 118(H) 39 - 117 U/L [facility] TOTAL BILIRUBIN 0.6 0.0 - 1.2 mg/dL [facility] AST 25 0 - 37 U/L [facility] ALT 7 0 - 40 U/L [facility] GLOBULIN 4.0 1 - 4.8 g/dL [facility] EGFR 105 >59 mL/min/1.7 3m2 [facility] Comment:Estimated glomerular filtration rate calculated using the CKD-EPI refit equation. ANION GAP 15 10 - 20 mmol/L [facility] Blood 01/04/2024 9:22 AM EST 01/04/2024 9:53 AM EST us Missy WALLACE LAB BLOOD ORDERABLES Fin al Result Performing Organization Address City/State/[facility] Co de Phone Number [address] [address] * (ABNORMAL) CBC and differential (01/04/2024 9:22 AM EST) WBC 3.17(L) 4.00 - 11.00 K/uL [facility] RBC 3.41(L) 4.23 - 5.82 M/uL [facility] HGB 10.7(L) 13.4 - 17.5 g/dL [facility] HCT 33.8(L) 37.0 - 51.0 % [facility] PLT 64(L) 140 - 430 K/uL [facility] Comment:Consistent with prev ious result. MCV 99.1(H) 78.0 - 97.0 fL [facility] MCH 31.4 25.0 - 33.0 pg [facility] MCHC 31.7(L) 32.0 - 36.0 g/dL [facility] RDW 13.0 11.0 - 15.0 % [facility] MPV 13.2(H) 8.4 - 12.8 fl [facility] DIFF METHOD Auto [facility] NEUTS 57.2 43.0 - 75.0 % [facility] LYMPHS 24.9 18.2 - 47.4 % [facility] MONOS 12.0(H) 4.00 - 11.00 % [facility] EOS 4.7 0.0 - 8.0 % [facility] BASOS 0.9 0.0 - 2.0 % [facility] Granulocytes, immature (%) 0.3 0.0 - 0.9 % [facility] ABSOLUTE NEUTS 1.81 1.80 - 7.70 K/uL [facility] ABSOLUTE LYMPHS 0.79(L) 1.00 - 3.10 K/uL [facility] ABSOLUTE MONOS 0.38 0.20 - 0.80 K/uL [facility] ABSOLUTE EOS 0.15 0.00 - 0.80 K/uL [facility] ABSOLUTE BASOS 0.03 0.00 - 0.09 K/uL [facility] Granulocytes, immature 0.01 0.00 - 0.05 K/uL [facility] Blood 01/04/2024 9:22 AM EST 01/04/2024 9:53 AM EST Missy WALLACE LAB BLOOD ORDERABLES Fin al Result [address] [address] * (ABNORMAL) Immunoglobulin A (01/04/2024 9:22 AM EST) Pathologist [facility] IgA 436(H) 70 - 400 mg/dL [facility] Blood 01/04/2024 9:22 AM EST 01/04/2024 9:53 AM EST [facility] Nathaly Miranda [place] LAB BLOOD ORDERABLES Fin al Result [address] [address] * Tissue transglutaminase IgA (01/04/2024 9:22 AM EST) TTG IGA ANTIBODY 1.9 <4.0 (Negative) U/mL [facility] [address] Blood 01/04/2024 9:22 AM EST 01/04/2024 9:53 AM EST Missy WALLACE LAB BLOOD ORDERABLES Fin al Result [facility] [address] [place] [address] * Smooth Muscle Antibody (01/04/2024 9:22 AM EST) SMOOTH MUSCLE AB POSITIVE AT 1:20 [facility] Comment: Performing Physician, Max Jimenez M.D., [id number] Normal: Negative at 1:20 Blood 01/04/2024 9:22 AM EST 01/04/2024 9:53 AM EST Missy WALLACE LAB BLOOD ORDERABLES Fin al Result Performing Organization Address [facility] Co de Phone Number [address] [address] * Ceruloplasmin (01/04/2024 9:22 AM EST) CERULOPLASMIN 31 20 - 60 mg/dL [facility] Blood 01/04/2024 9:22 AM EST 01/04/2024 9:53 AM EST Missy WALLACE LAB BLOOD ORDERABLES Fin al Result Performing Organization Address [facility] Co de Phone Number [address] [address] * (ABNORMAL) Antinuclear antibody (JERMAIN) (01/04/2024 9:22 AM EST) JERMAIN SCREEN ON HEP 2 Positive(A ) Negative [facility] Comment:An JERMAIN Titer has bee n reflexed. The results will follow. Blood 01/04/2024 9:22 AM EST 01/04/2024 9:53 AM EST Missy WALLACE LAB BLOOD ORDERABLES Fin al Result Performing Organization Address City/[facility] Co de Phone Number MENDOZA BISMARK [address] [address] * Anti-Mitochondrial Antibody (AMA) (01/04/2024 9:22 AM EST) MITOCHONDRIAL AB NEGATIVE AT 1:20 [facility] Comment: Performing Physician, Max Jimenez M.D., [id number] Normal: Negative at 1:20 Blood 01/04/2024 9:22 AM EST 01/04/2024 9:53 AM EST Missy WALLACE LAB BLOOD ORDERABLES Fin al Result [address] [address] * Amylase (01/04/2024 9:22 AM EST) Pathologist [facility] AMYLASE 86 28 - 100 U/L [facility] Blood 01/04/2024 9:22 AM EST 01/04/2024 9:53 AM EST Missy WALLACE LAB BLOOD ORDERABLES Fin al Result Performing Organization Address City/[facility]/ZIP Co de Phone Number [address] [address] * AFP (non-maternal specimens) (01/04/2024 9:22 AM EST) Pathologist [facility] AFP (NON-MATERNAL) 4.7 <7.9 ng/mL [facility] Comment: Test Methodology Filipe [id number] Patient results determined by assays using different manufacturers or methods may not be comparable. Blood 01/04/2024 9:22 AM EST 01/04/2024 9:53 AM EST Missy WALLACE LAB BLOOD ORDERABLES Fin al Result Performing Organization Address City/[facility]/ZIP Co de Phone Number [address] [address] * Ktmuw-8-fnjiozyzwnu phenotyping (01/04/2024 9:22 AM EST) ALPHA 1 ANTITRYPSIN 173 100 - 190 mg/dL [facility] [address] Comment: (NOTE) ADDITIONAL INFORMATION Method: Nephelometry A1A PHENOTYPE MM bands [facility] [address] Comment: (NOTE) A single M isoform is detected. In the context of a normal lvkyf-9-ysszhgaeagc concentration, this is consistent with an MM phenotype. ADDITIONAL INFORMATION Method: Isoelectric Focusing, This assay identifies the phenotype of the circulating fkttz-3-mdsvtiygdus (A1A) protein. If the patient is on replacement therapy or has been recently transfused, the phenotype will detect patient and replacement or transfused plasma A1A protein. This test also cannot detect a null allele which could be responsible for an A1A deficiency. Blood 01/04/2024 9:22 AM EST 01/04/2024 9:53 AM EST Missy WALLACE LAB BLOOD ORDERABLES Fin al Result [facility] [address] [place] [address] documented in this encounter Visit Diagnoses Diagnosis Need for hepatitis C screening test- Primary Special screening examination for other specified viral diseases Hepatic cirrhosis, unspecified hepatic cirrhosis type, unspecified whether ascites present Esophageal varices in alcoholic cirrhosis Esophageal varices without mention of bleeding documented in this encounter Care Teams Poultry Inspector Relationship Specialty [facility] Date [facility] [address] [place] [address] PCP - General 10/07/23 Pcp, Unknown 10/07/23 documented as of this encounter Additional Source Comments The information contained in this document represents components of the legal health record. It is not the complete legal health record.[facility]
--- OUTSIDE RECORDS SUMMARY | 2025-07-12 17:06 | XMS_ITS ---
Author Organization [employer] Address [address] [place] [address] [address] [place] [address] Care Team Providers Care Python Web Developer Name Role Phone Missy Milner RN Unavailable [phone] Conor Vidal Unavailable [facility] Complex Status:Outreach In Progress (Enrolling) Start date:04/23/2025 Enrollment reason:ADT Feed Overview ADT-admitted [facility] 04/22/25 Case Team Name Relationship Phone Conor Vidal(Responsible Staff) [phone] Continued Care and Services Coordination
--- OUTSIDE RECORDS SUMMARY | 2025-07-12 17:06 | XMS_ITS | Clinical Summary ---
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 Name Role Phone Missy Milner RN Unavailable [phone] Young Conor Unavailable Allergies No known active [...] Patient presented with altered mental status from [facility] where he appeared more lethargic than [...] Department Care Team Description 07/08/2025 Patient Outreach [facility] [address] [place], [place] [phone] Missy Milner, LAURA 07/07/2025 Telephone [facility] [address] [place] [address] Mihaela Zhong RN 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 07/06/2025 Orders Only GENERIC EXTERNAL DATA DEPARTMENT Provider, Generic External Data 07/02/2025 Orders Only [facility] External Provider, [facility] 07/01/2025 Patient Outreach [facility] [address] [place] [address] Missy Milner, LAURA Care Coordination ([facility] Conor Vidal, TC #5 initial outreach attempt_lvm) 06/19/2025 Results Follow-Up [facility] Information Management [address] [place] [address] Provider, Generic External Data XR Chest 2 Views 06/19/2025 Results Follow-Up [facility] Information Management [address] [place] [address] External Provider, [facility] CT Chest w/ Contrast 06/19/2025 Orders Only [facility] External Provider, [facility] 06/18/2025 Orders Only GENERIC EXTERNAL DATA DEPARTMENT Provider, Generic External Data 06/11/2025 Travel 06/09/2025 Results Follow-Up [facility] Information [facility] [address] [place] [address] Provider, Generic External Data XR Chest 1 View 06/08/2025 Orders Only GENERIC EXTERNAL DATA DEPARTMENT Provider, Generic External Data 06/05/2025 Orders Only GENERIC EXTERNAL DATA DEPARTMENT Provider, Generic External Data 05/30/2025 Patient Outreach [facility] [address] [place] [phone] Missy Milner, LAURA Care Coordination ([facility] Conor Vidal, TC #4 Initial outreach attempt_lvm ) 05/23/2025 Orders Only GENERIC EXTERNAL DATA DEPARTMENT Provider, Generic External Data 05/21/2025 Orders Only GENERIC EXTERNAL DATA DEPARTMENT Provider, Generic External Data 05/19/2025 Patient Outreach [facility] [address] [place] [address] Missy Milner RN 05/13/2025 Orders Only [facility] External Provider, [facility] 05/09/2025 Patient Outreach [facility] [address] [place] [address] Missy Milner RN 05/08/2025 1:00 PM EDT Office Visit [facility] [address] [address] Karely Guerra MD 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 Please make this patient a high priority.); NEW PATIENT AAPT REQUEST 05/08/2025 Travel 05/05/2025 Orders Only GENERIC EXTERNAL DATA DEPARTMENT Provider, Generic External Data 05/02/2025 Patient Outreach [facility] [address] [place] [address] Missy Milner RN 05/02/2025 Patient Outreach [facility] [address] [place] [address] Missy Milner RN 05/02/[address] [address] Misti Murry MD NEW PT APPT 05/02/2025 Patient Outreach [address] [address] Misti Murry MD Care Coordination ([facility] Conor Vidal, TC #3 initial outreach attempt, appt reminder_lvm) 04/30/[address] [address] Misti Murry MD CHART PREP 04/30/2025 Orders Only GENERIC EXTERNAL DATA DEPARTMENT Provider, Generic External Data 04/28/2025 Patient Outreach [address] [address] Misti Murry MD Care Coordination ([facility] Conor Vidal, TC #2 initial outreach attempt_lvm ) 04/24/2025 Patient Outreach [address] [address] Misti Murry MD 04/23/2025 Results Follow-Up [address] [address] Misti Murry MD XR Chest 2 Views 04/23/2025 Patient Outreach [address] [address] Misti Murry MD Pre-visit Planning ((Unable to reach for PVP screening, LVM) to be completed in office) 04/23/2025 Patient Outreach [address] [address] Misti Murry MD Care Coordination ([facility] Conor Vidal, Initial outreach attempt_lvm ) 04/23/2025 Patient Outreach [address] [address] Misti Murry MD Care Coordination ([facility] Conor Vidal, Chart review ) 04/23/2025 Patient Outreach [facility] [address] [place] [phone] Misti Murry MD Care Coordination ([facility] chart review) 04/23/2025 Patient Outreach [address] [address] Misti Murry MD 04/22/2025 Telephone [facility] [address] [place] [address] Chinedu Brenner MD 04/21/2025 Telephone [facility] [address] [place] [address] Chinedu Brenner MD 04/19/2025 Orders Only [facility] External Provider, [facility] from Last 3 Months Immunizations Immunization Administration [...] PM EDT Narrative 07/06/2025 7:18 PM EDT [address] [address] XRay Report Signed Patient: Charbel Delgado MR#: [id number] : 1970 Acct:[id number] Age/Sex: 55 / M ADM Date: 07/06/25 Loc: HO.ED Attending Dr: Ordering Physician: Maryann Cee Date of Service: 07/06/25 Procedure(s): XR chest 1V Accession Number(s): [id number] cc: [facility]; Maryann Cee CLINICAL HISTORY: hypoxia 1 [...] in OV> 07/06/251916 DD/ 15 TD/TT: 07/06/251915 Media Center Assistant: Procedure Note Donotuseinterpreter, Image - 07/06/[address] [address] XRay Report Signed Patient: Isaias Delgado#: [id number] : 1970Acct:[id number] Age/Sex: 55 / MADM Date: 07/06/25 Loc: .ED Attending Dr: Ordering Physician: Maryann Cee Date of Service: 07/06/25 Procedure(s): XR chest 1V Accession Number(s): [id number] cc: [facility]; Maryann Cee CLINICAL HISTORY: hypoxia 1 [...] in OV> 07/06/251916 DD/ 15 TD/TT: 07/06/251915 Media Center Assistant: [facility] External Provider IMG XR PROCEDURES Edited Result - Final * (ABNORMAL) Drug Monitoring, Panel 1, Screen, Urine (07/06/2025 6:08 PM EDT) Only the most recent of3 resultswithin the time period is included. Opiate Screen Urine Not Detected Not Detect [facility] Comment:Opiate cut-off is 30 0 ng/mL.Positive results are unconfirmed and should not be used fornon-medical purposes. Barbiturates, Urine POSITIVE(A) Not Detect [facility] Comment:Barbiturate cut-off is 200 ng/mL.Positive results are unconfirmed and should not be used fornon-medical purposes. Phencyclidine Screen Urine Not Detected Not Detect [facility] Comment:Phencyclidine cut-of f is 25 ng/mL.Positive results are unconfirmed and should not be used fornon-medical purposes. Amphetamine Screen Urine Not Detected Not Detect [facility] Comment:Amphetamine cut-off is 1000 ng/mL.Positive results are unconfirmed and should not be used fornon-medical purposes. Benzodiazepines Screen Urine Not Detected Not Detect [facility] Comment:Benzodiazepine cut-o ff is 200 ng/mL.Positive results are unconfirmed and should not be used fornon-medical purposes. Cocaine Screen Urine Not Detected Not Detect [facility] Comment:Cocaine cut-off is 3 00 ng/mL.Positive results are unconfirmed and should not be used fornon-medical purposes. Cannabinoid Screen Urine Not Detected Not Detect [facility] Comment:Cannabinoid cut-off is 50 ng/mL.Positive results are unconfirmed and should not be used fornon-medical purposes. Methadone Screen, Urine Not Detected Not Detect ng/mL [facility] Comment:Methadone cut-off is 300 ng/mL.Positive results are unconfirmed and should not be used fornon-medical purposes. FENTANYL URINE Not Detected Not Detect [facility] Comment:Fentanyl cut-off is 1 ng/mL.Positive results are unconfirmed and should not be used fornon-medical purposes. Oxycodone Urine Screen Not Detected Not Detect ng/mL [facility] Comment:Oxycodone cut-off is 100 ng/mL.Positive results are unconfirmed and should not be used fornon-medical purposes. Buprenorphine Screen Not Detected Not Detect ng/mL [facility] Comment:Buprenorphine cut-of f is 5 ng/mL.Positive results are unconfirmed and should not be used fornon-medical purposes. 07/06/2025 6:08 PM EDT 07/06/2025 6:11 PM EDT Generic External Data Provider LAB URINE ORDERAB LES Final Result Performing Organization Address [facility] Co de Phone Number [facility] [address] [place] [phone] * High Sensitivity Troponin I (07/06/2025 5:58 PM EDT) Only the most recent of6 resultswithin the time period is included. TROPONIN I HIGH SENSITIVITY <2.7 <3.5 - 35.0 ng/L [facility] Comment:The Connolly high sens itivity Troponin-I results should beused in conjunction with other diagnostic information suchas ECG, clinical observations and information, and patientsymptoms to aid in the diagnosis of [place]. 07/06/2025 5:58 PM EDT 07/06/2025 6:06 PM EDT Generic External Data Provider LAB BLOOD ORDERAB LES Final Result Performing Organization Address [facility] Co de Phone Number [facility] [address] [place] [phone] * (ABNORMAL) Ethanol (07/06/2025 5:58 PM EDT) Only the most recent of5 resultswithin the time period is included. ETHANOL (MG/DL) IN SER/PLAS 399(HH) mg/dL [facility] Comment:Serum/plasma ethanol results are to be used formedical/treatment purposes only. 07/06/2025 5:58 PM EDT 07/06/2025 6:06 PM EDT us Generic External Data Provider LAB BLOOD ORDERAB LES Final Result [facility] [address] [place] [address] [phone] * (ABNORMAL) CBC auto differential (07/06/2025 5:58 PM EDT) Only the most recent of7 resultswithin the time period is included. White Blood Count 3.8(L) 4.8 - 10.8 X10*3/uL [facility] Red Blood Count 3.19(L) 4.60 - 5.80 X10*6/uL [facility] Hemoglobin 9.9(L) 14.0 - 18.0 g/dl [facility] Hematocrit 29.9(L) 42.0 - 52.0 % [facility] Mean Corpuscular Volume 93.7 80.0 - 98.0 fL [facility] Mean Corpuscular Hemoglobin 31.0 27.0 - 33.0 pg [facility] Mean Corpuscular HGB Conc 33.1 31.0 - 36.0 g/dl [facility] Red Cell Distribution Width 17.9(H) 11.0 - 16.0 % [facility] Platelet Count 60(L) 160 - 400 X10*3/uL [facility] Mean Platelet Volume 11.8 9.4 - 12.4 fL [facility] Neutrophils Percent Auto 55.0 45 - 73 % [facility] Imm Gran Pct Auto 0.5(H) 0.0 - 0.4 % [facility] Lymphocytes Percent Auto 30.6 20 - 40 % [facility] Monocytes Percent Auto 8.8 2 - 11 % [facility] Eosinophils Percent Auto 3.5 0 - 4 % [facility] Basophils Percent Auto 1.6 0 - 2 % [facility] NRBC Pct Auto 0.0 0.0 - 0.2 /100WBC [facility] Neutrophils Absolute Auto 2.1 2.0 - 8.3 x10*3/uL [facility] Imm Gran Abs Auto 0.02 0.00 - 0.03 X10*3/uL [facility] Lymphocytes Absolute Auto 1.2 1.2 - 4.9 X10*3/uL [facility] Monocytes Absolute Auto 0.3 0.1 - 1.2 X10*3/uL [facility] Eosinophils Absolute Auto 0.1 0.0 - 0.4 X10*3/uL [facility] Basophils Absolute Auto 0.1 0.0 - 0.2 X10*3/uL [facility] NRBC Abs Auto 0.000 0.0 - 0.012 X10*3/uL [facility] 07/06/2025 5:58 PM EDT 07/06/2025 6:06 PM EDT us Generic External Data Provider LAB BLOOD ORDERAB LES Final Result Performing Organization Address City/[facility]/ZIP Co de Phone Number [facility] [address] [place] [phone] * B Type Natriuretic Peptide (BNP) (07/06/2025 5:58 PM EDT) Only the most recent of6 resultswithin the time period is included. B Type Natriuretic Peptide 100 <100 pg/mL [facility] 07/06/2025 5:58 PM EDT 07/06/2025 6:06 PM EDT us Generic External Data Provider LAB BLOOD ORDERAB LES Final Result Performing Organization Address City/[facility]/ZIP Co de Phone Number [facility] [address] [place] [phone] * (ABNORMAL) Comprehensive Metabolic Panel (07/06/2025 5:58 PM EDT) Only the most recent of4 resultswithin the time period is included. Sodium 143 135 - 145 mmol/L [facility] Potassium 3.6 3.3 - 5.1 mmol/L [facility] Chloride 112(H) 96 - 108 mmol/L [facility] Carbon Dioxide 18(L) 22 - 29 mmol/L [facility] Anion Gap 17 12 - 20 [facility] Urea Nitrogen (BUN) 10 9 - 16 mg/dL [facility] Creatinine, Serum 0.95 0.5 - 1.4 mg/dL [facility] Creatinine Clr Calc Pharmacy 69.6 [facility] Comment:eGFR (calculated fro m the MDRD study equation) and eCrCl(calculated from the Cockcroft-Gault equation) are based ondifferent parameters and may not yield comparable results.If eCrCl result is absurd, please check patient'sheight/weight. Estimated Glomerular Filt Rate >60 [facility] Comment:Chronic Kidney Disea se: Estimated GFR < 60 mL/min/1.59f7Foqvph Kidney Disease: Estimated GFR < 15 mL/min/1.73m2 Glucose 110 60 - 115 mg/dL [facility] Calcium 8.1(L) 8.4 - 10.2 mg/dL [facility] Bilirubin, Total 0.6 0.0 - 1.0 mg/dL [facility] Aspartate Amino Transferase 51(H) 5 - 37 U/L [facility] Alanine Aminotransferase 11 0 - 40 U/L [facility] Total Protein 8.0 6.5 - 8.0 g/dL [facility] Albumin Level 3.5 3.5 - 5.0 g/dL [facility] Alkaline Phosphatase 158(H) 39 - 117 U/L [facility] 07/06/2025 5:58 PM EDT 07/06/2025 6:06 PM EDT us Generic External Data Provider LAB BLOOD ORDERAB LES Final Result [facility] [address] [place] [phone] [phone] * CT Chest w/ Contrast (06/19/2025 4:46 AM EDT) Anatomical Region Laterality Modality Body, Chest Computed Tomogra phy 06/19/2025 4:46 AM EDT Narrative 06/19/2025 4:48 AM EDT [address] [address] [address] Scan Report Signed Patient: Charbel Delgado MR#: [id number] : 1970 Acct:[id number] Age/Sex: 55 / M ADM Date: 06/19/25 Loc: [facility]: Mercedes Hogan MD Ordering Physician: David Galvez PA-C Date of Service: 06/19/25 Procedure(s): CT chest w IV con Accession Number(s): [id number] cc: [facility]; David Galvez PA-C Report Number: [id number]: Total DLP = 265.00 mGy-cm CLINICAL HISTORY: [...] in OV> 06/19/25446 DD/ 5 TD/TT: 06/19/25445 Media Center Assistant: Procedure Note Donotuseinterpreter, Image - 06/19/[address] [place] [address] [address] Scan Report Signed Patient: Isaias Delgado#: [id number] : 1970Acct:[id number] Age/Sex: 55 / MADM Date: 06/19/25 Loc: [place] [address]: Mercedes Hogan MD Ordering Physician: David Galvez PA-C Date of Service: 06/19/25 Procedure(s): CT chest w IV con Accession Number(s): [id number] cc: [facility]; David Galvez PA-C Report Number: [id number]: Total DLP = 265.00 mGy-cm CLINICAL HISTORY: [...] in OV> 06/19/25446 DD/ 5 TD/TT: 06/19/25445 Media Center Assistant: [facility] External Provider IMG CT PROCEDURES Edited Result - Final * Lactic Acid (06/18/2025 11:49 PM EDT) Lactic Acid 1.8 0.5 - 2.0 mmol/L [facility] 06/18/2025 11:4 9 PM EDT 06/19/2025 Generic External Data Provider LAB BLOOD ORDERAB LES Final Result [facility] [address] [place] [address] [phone] * XR Chest 2 Views (06/18/2025 11:47 PM EDT) Only the most recent of5 resultswithin the time period is included. Anatomical Region Laterality Modality Chest Radiographic Lamar ging 06/18/2025 11:4 7 PM EDT Narrative 06/18/2025 11:48 PM EDT [address] [address] XRay Report Signed Patient: Charbel Delgado MR#: [id number] : 1970 Acct:[id number] Age/Sex: 55 / M ADM Date: 06/18/25 Loc: .ED Attending Dr: Ordering Physician: David Galvez PA-C Date of Service: 06/18/25 Procedure(s): XR chest 2V Accession Number(s): [id number] cc: [facility]; David Galvez PA-C CLINICAL HISTORY: Hypoxia [...] in OV> 06/18/252347 DD/ 46 TD/TT: 06/18/252346 Media Center Assistant: Procedure Note Donotuseinterpreter, Image - 06/19/2025 [place] [address] XRay Report Signed Patient: Isaias Delgado#: [id number] : 1970Acct:[id number] Age/Sex: 55 / MADM Date: 06/18/25 Loc: .ED Attending Dr: Ordering Physician: David Galvez PA-C Date of Service: 06/18/25 Procedure(s): XR chest 2V Accession Number(s): [id number] cc: [facility]; David Galvez PA-C CLINICAL HISTORY: Hypoxia [...] in OV> 06/18/252347 DD/ 46 TD/TT: 06/18/252346 Media Center Assistant: [facility] External Provider IMG XR PROCEDURES Edited Result - Final * Slide Review (06/18/2025 9:19 PM EDT) Slide Review VERIFIED [facility] 06/18/2025 9:19 PM EDT 06/18/2025 9:27 PM EDT Generic External Data Provider LAB BLOOD ORDERAB LES Final Result Performing Organization Address City/[facility]/ZIP Co de Phone Number [facility] [address] [place] [phone] * Magnesium (06/18/2025 9:19 PM EDT) Only the most recent of5 resultswithin the time period is included. Magnesium 1.6 1.6 - 2.6 mg/dL [facility] 06/18/2025 9:19 PM EDT 06/18/2025 9:27 PM EDT Generic External Data Provider LAB BLOOD ORDERAB LES Final Result Performing Organization Address City/[facility]/ZIP Co de Phone Number [facility] [address] [place] [phone] * (ABNORMAL) Lactic Acid (06/18/2025 9:19 PM EDT) Lactic Acid 2.4(HH) 0.5 - 2.0 mmol/L [facility] Comment:Critical value for t est(s): LACTA Results called to gildardo back by: PATRICIA Person calling: [email or web address] Date: 06/18/25Time:2154 06/18/2025 9:19 PM EDT 06/18/2025 9:27 PM EDT Generic External Data Provider LAB BLOOD ORDERAB LES Final Result Performing Organization Address [facility] Co de Phone Number [facility] [address] [place] [phone] * SARS-CoV-2 RNA, Influenza A/B, and RSV RNA, Ql NAAT (06/08/2025 5:01 PM EDT) Only the most recent of2 resultswithin the time period is included. Influenza A PCR NEGATIVE Negative [facility] Influenza B PCR NEGATIVE Negative [facility] Resp Syncy Virus RNA Qual PCR NEGATIVE Negative [facility] SARS COV2 PCR NEGATIVE Negative [facility] Comment:All test results mus t [...] use by authorized laboratories.Testing performed on the [employer] GeneXpert utilizingreal-time RT-PCR.All SARS CoV2 and positive influenza A/B results arereported to [facility]. 06/08/2025 5:01 PM EDT 06/08/2025 5:07 PM EDT Generic External Data Provider LAB MICROBIOLOGY - GENERAL ORDERABLES Final Result Performing Organization Address [facility] Co de Phone Number [facility] [address] [place] [phone] * (ABNORMAL) Hepatic Function Panel (06/08/2025 5:01 PM EDT) Only the most recent of4 resultswithin the time period is included. Bilirubin, Total 0.7 0.0 - 1.0 mg/dL [facility] Bilirubin, Direct 0.4 0.0 - 0.5 mg/dL [facility] Aspartate Amino Transferase 66(H) 5 - 37 U/L [facility] Alanine Aminotransferase 15 0 - 40 U/L [facility] Total Protein 7.8 6.5 - 8.0 g/dL [facility] Albumin Level 3.5 3.5 - 5.0 g/dL [facility] Alkaline Phosphatase 133(H) 39 - 117 U/L [facility] 06/08/2025 5:01 PM EDT 06/08/2025 5:05 PM EDT us Generic External Data Provider LAB BLOOD ORDERAB LES Final Result [facility] [address] [place] [phone] * (ABNORMAL) Basic Metabolic Panel (06/08/2025 5:01 PM EDT) Only the most recent of3 resultswithin the time period is included. Pathologist [facility] Sodium 144 135 - 145 mmol/L [facility] Potassium 3.4 3.3 - 5.1 mmol/L [facility] Chloride 114(H) 96 - 108 mmol/L [facility] Carbon Dioxide 20(L) 22 - 29 mmol/L [facility] Anion Gap 13 12 - 20 [facility] Urea Nitrogen (BUN) 9 9 - 16 mg/dL [facility] Creatinine, Serum 0.66 0.5 - 1.4 mg/dL [facility] Creatinine Clr Calc Pharmacy 100.2 [facility] Comment:eGFR (calculated fro m the MDRD study equation) and eCrCl(calculated from the Cockcroft-Gault equation) are based ondifferent parameters and may not yield comparable results.If eCrCl result is absurd, please check patient'sheight/weight. Estimated Glomerular Filt Rate >60 [facility] Comment:Chronic Kidney Disea se: Estimated GFR < 60 mL/min/1.16r4Jikawx Kidney Disease: Estimated GFR < 15 mL/min/1.73m2 Glucose 92 60 - 115 mg/dL [facility] Calcium 8.2(L) 8.4 - 10.2 mg/dL [facility] 06/08/2025 5:01 PM EDT 06/08/2025 5:05 PM EDT us Generic External Data Provider LAB BLOOD ORDERAB LES Final Result Performing Organization Address City/[facility] Co de Phone Number [facility] [address] [place] [phone] * (ABNORMAL) VENOUS BLOOD GAS (06/05/2025 11:59 AM EDT) VBG pH 7.41 7.32 - 7.43 [facility] Comment:METER #: [id number] additional_comment: Cbnievea VBG PCO2 29 mmHg [facility] Comment:METER #: [id number] additional_comment: [facility] VBG PO2 109 mmHg [facility] Comment:METER #: [id number] additional_comment: [facility] VBG Base Excess -4.5 mmol/L [facility] Comment:METER #: [id number] additional_comment: [facility]ve[facility] VBG HCO3 19(L) 22 - 26 mmol/L [facility] Comment:METER #: [id number] additional_comment: Cbnievea O2 Sat, Demetrio 99.0 % [facility] Comment:METER #: [id number] additional_comment: Cb[facility]a 06/05/2025 11:5 9 AM EDT 06/05/2025 12:03 PM EDT us Generic External Data Provider LAB BLOOD ORDERAB LES Final Result Performing Organization Address City/State/[facility] Co de Phone Number [facility] [address] [place] [phone] * (ABNORMAL) Creatine Kinase, Total (06/05/2025 11:54 AM EDT) Only the most recent of2 resultswithin the time period is included. Creatine Kinase Total 34(L) 38 - 174 U/L [facility] 06/05/2025 11:5 4 AM EDT 06/05/2025 11:57 AM EDT us Generic External Data Provider LAB BLOOD ORDERAB LES Final Result Performing Organization Address [facility] Co de Phone Number [facility] [address] [place] [phone] * VASC US Lower Extremity Venous Duplex Bilateral (05/23/2025 7:11 PM EDT) 05/23/2025 7:11 PM EDT Narrative [facility] - 05/23/2025 7:12 PM EDT [address] [address] Ultrasound Report Signed Patient: Charbel Delgado MR#: [id number] : 1970 Acct:[id number] Age/Sex: 55 / M ADM Date: 05/23/25 Loc: .ED Attending Dr: Ordering Physician: Dexter Foster Date of Service: 05/23/25 Procedure(s): US venous duplex LE BI Accession Number(s): [id number] cc: Dexter Foster; [facility] CLINICAL HISTORY: bilateral leg swelling Venous [...] in OV> 05/23/251910 DD/ 10 TD/TT: 05/23/251910 Media Center Assistant: Procedure Note Maikfernandopatrick, Image - 05/23/[address] [address] Ultrasound Report Signed Patient: Isaias Delgado#: [id number] : 1970Acct:[id number] Age/Sex: 55 / MADM Date: 05/23/25 Loc: HO.ED Attending Dr: Ordering Physician: Dexter Foster Date of Service: 05/23/25 Procedure(s): US venous duplex LE BI Accession Number(s): [id number] cc: Dexter Foster; [facility] CLINICAL HISTORY: bilateral leg swelling Venous [...] in OV> 05/23/251910 DD/ 10 TD/TT: 05/23/251910 Media Center Assistant: us [facility] External Provider CV VASC ULAR PROCEDURES Final Result [facility] [address] [place] [phone] * Lipase (05/23/2025 1:50 PM EDT) Lipase 21 8 - 78 U/L [facility] 05/23/2025 1:50 PM EDT 05/23/2025 1:53 PM EDT Generic External Data Provider LAB BLOOD ORDERAB LES Final Result [facility] [address] [place] [phone] * US VENOUS DUPLEX LE LT (05/13/2025 10:50 PM EDT) Anatomical Region Laterality Modality Abdomen Ultrasound 05/13/2025 10:5 0 PM EDT Narrative 05/13/2025 10:51 PM EDT [place] [address] Ultrasound Report Signed Patient: Charbel Delgado MR#: [id number] : 1970 Acct:[id number] Age/Sex: 55 / M ADM Date: 05/13/25 Loc: HO.ED Attending Dr: Ordering Physician: David Galvez PA-C Date of Service: 05/13/25 Procedure(s): US venous duplex LE LT Accession Number(s): [id number] cc: [facility]; David Galvez PA-C CLINICAL HISTORY: Swelling; [...] in OV> 05/13/252250 DD/ 49 TD/TT: 05/13/252249 Media Center Assistant: Procedure Note Donotuseinterpreter, Image - 05/13/[address] [address] Ultrasound Report Signed Patient: Rod DelgadoR#: [id number] : 1970Acct:[id number] Age/Sex: 55 / MADM Date: 05/13/25 Loc: HO.ED Attending Dr: Ordering Physician: David Galvez PA-C Date of Service: 05/13/25 Procedure(s): US venous duplex LE LT Accession Number(s): [id number] cc: [facility]; David Galvez PA-C CLINICAL HISTORY: Swelling; [...] in OV> 05/13/252250 DD/ 49 TD/TT: 05/13/252249 Media Center Assistant: [facility] External Provider IMG US PROCEDURES Final Result * Blood Culture (First) (04/30/2025 9:19 AM EDT) Blood Venous blood specimen / Unknown 04/30/2025 9:19 AM EDT 04/30/2025 9:24 AM EDT Comment:Blood Narrative [facility] - 05/05/2025 11:24 AM EDT Blood Culture (First) No growth after 5 days. Specimen Source: Blood Generic External Data Provider LAB MICROBIOLOGY - GENERAL ORDERABLES Final Result Performing Organization Address [facility]/ZIP Co de Phone Number [facility] [address] [place] [phone] * Blood Culture (Second) (04/30/2025 9:19 AM EDT) Blood Venous blood specimen / Unknown 04/30/2025 9:19 AM EDT 04/30/2025 9:24 AM EDT Comment:Blood Narrative [facility] - 05/05/2025 11:24 AM EDT Blood Culture (Second) No growth after 5 days. Specimen Source: Blood Generic External Data Provider LAB MICROBIOLOGY - GENERAL ORDERABLES Final Result [facility] [address] [place] [phone] [phone] * (ABNORMAL) Sed Rate by Modified Matthewergren (04/30/2025 9:19 AM EDT) Erythrocyte Sedimentation Rate 26(H) 0 - 15 MM/HR [facility] Comment:Patients with polycy themia and many hemoglobin abnormalitiesmay have depressed sed rates whereas patients with anemiamay have elevated sed rates. 04/30/2025 9:1 9 AM EDT 04/30/2025 9:24 AM EDT Generic External Data Provider LAB BLOOD ORDERAB LES Final Result Performing Organization Address [facility] Co de Phone Number [facility] [address] [place] [address] [phone] * (ABNORMAL) Glucose, Whole Blood (04/19/2025 7:43 PM EDT) Glucose, Whole Blood 122(H) 60 - 115 mg/dL [facility] Comment:METER #: [id number] 04/19/2025 7:43 PM EDT 04/19/2025 7:47 PM EDT Generic External Data Provider LAB BLOOD ORDERAB LES Final Result Performing Organization Address City/[facility] Co de Phone Number [facility] [address] [place] [phone] [phone] from Last 3 Months Insurance [facility] [id number] HSN [facility] C3 Care Teams Mortgage Accounting Clerk Relationship Specialty Start Date End Date Missy Milner RN [address] [place] [phone] Registered Nurse Family Medicine 04/23/25 Conor Vidal 04/23/25
--- OUTSIDE RECORDS SUMMARY | 2025-07-12 17:06 | XMS_ITS | Encounter Summary ---
Author Organization [facility] Address [address] [place] [address] 7 [place] [address] Care Team Providers Care Multi Site Leasing Consultant Name Role Phone Missy Milner RN Unavailable [phone] YoungConor Unavailable Reason for Visit * Reason Onset Date Comments Needs SPIRITUAL COUNSELOR Appt 07/07/2025 Encounter Details Date Type Department Care Team ([facility] st Contact Info) Description 07/07/2025 Telephone [facility] [address] [place] [address] Mihaela Zhong RN [address] [place] [address] Needs SPIRITUAL COUNSELOR Appt Social History Tobacco Use Types Packs/Day [...] interested in becoming a pt of the [facility]. No answer. Left message.. * Telephone Encounter - Mihaela Zhong RN - 07/07/2025 7:33 AM EDT According to chart, pt has had several no shows and canceled appts. Pt did see Dr Guerra in Walk In for SPIRITUAL COUNSELOR visit but pt is homeless according to chart- not sure if [facility] is the best location for the pt- also Dr Guerra is leaving the health [facility]. Please out reach and attempt schedule with [place] provider. Thank you. documented in this encounter Plan of Treatment Not on file documented as of this encounter Visit Diagnoses Not on filedocumented in this encounter Care Teams Multi Site Leasing Consultant Relationship Specialty Start Date End Date Missy Milner RN [address] [place] [address] Registered Nurse Family Medicine 04/23/25 Conor Vidal 04/23/25 documented as of this encounter
--- OUTSIDE RECORDS SUMMARY | 2025-07-12 17:06 | XMS_ITS | Encounter Summary ---
Author Organization [facility] Address [address] [facility] [address] [place] [phone] Phone Care Team Providers Care Fish Bait Picker Name Role Phone [facility], [facility] Primary Care Provider Pcp, Unknown Unavailable Unavailable Encounter Details Date Type Department Care Team (Late st Contact Info) Description 02/02/2024 Procedure Pass [facility] Endoscopy Admitting Dept Virtual Department [address] [place] [address] Social History Tobacco Use Types Packs/Day Years [...] on filedocumented in this encounter Care Teams Fish Bait Picker Relationship Specialty Start Date End Date [facility] [address] [place] [phone] PCP - General 10/07/23 Pcp, Unknown 10/07/23 documented as of this encounter Additional Source Comments The information contained in this document represents components of the legal health record. It is not the complete legal health record.[facility]
--- OUTSIDE RECORDS SUMMARY | 2025-07-12 17:06 | XMS_ITS | Encounter Summary ---
Author Organization [facility] Address [address] [place] [address] [place] [address] Care Team Providers Care Associate Web Developer Name Role Phone Missy Milner RN Unavailable [phone] Conor Vidal Unavailable Encounter Details Date Type Department Care Team ([facility] st Contact Info) Description 06/09/2025 Results Follow-Up [place] [facility] [address] [place] [address] Provider, Generic External Data XR Chest 1 [...] filedocumented in this encounter Care Teams Associate Web Developer Relationship Specialty Start Date End Date Missy Milner RN [address] [place] [address] Registered Nurse Family Medicine 04/23/25 Conor Vidal 04/23/25 documented as of this encounter
--- OUTSIDE RECORDS SUMMARY | 2025-07-12 17:07 | XMS_ITS | Clinical Summary ---
Author Organization [facility] Address [address] [place] [address] Phone Care Team Providers Care Medical Records Coder Name Role Phone [facility], Facility Primary Care Provider Pcp, Unknown Unavailable [...] magnesia). Active monobasic and dibasic sodium phosphates (97719 ENEMA) 19-7 gram/[address] 1 [...] Patient presented with altered mental status from [facility] where he appeared more lethargic than [...] EST) SODIUM 137 133 - 146 mmol/L POTASSIUM 4.5 3.3 - 5.1 mmol/L CHLORIDE 105 96 - 108 mmol/L CO2 22 21 - 35 mmol/L BUN 14 6 - 19 mg/dL CREATININE 0.80 0.5 - 1.5 mg/dL GLUCOSE 104(H) 70 - 99 mg/dL ALBUMIN 4.1 3.9 - 4.8 g/dL TOTAL PROTEIN 8.1(H) 6.5 - 8.0 g/dL CALCIUM 10.4(H) 8.4 - 10.3 mg/dL ALKALINE PHOSPHATASE 118(H) 39 - 117 U/L TOTAL BILIRUBIN 0.6 0.0 - 1.2 mg/dL AST 25 0 - 37 U/L ALT 7 0 - 40 U/L GLOBULIN 4.0 1 - 4.8 g/dL EGFR 105 >59 mL/min/1.7 3m2 Comment:Estimated glomerular filtration rate calculated using the CKD-EPI refit equation. ANION GAP 15 10 - 20 mmol/L Blood 01/04/2024 9:22 AM EST 01/04/2024 9:53 AM EST Missy WALLACE LAB BLOOD ORDERABLES Fin al Result Performing Organization Address City/[facility]/ZIP Co de Phone Number [address] [phone] * Hepatitis C antibody, qualitative (01/04/2024 9:22 AM EST) HCV NON-REACTIV E NON-REACTI VE Blood 01/04/2024 9:22 AM EST 01/04/2024 9:53 AM EST Missy WALLACE LAB BLOOD ORDERABLES Fin al Result Performing Organization Address [facility] Co de Phone Number [address] [phone] from Last 3 Months or Most Recently Relevant to Health Maintenance Insurance [facility] C3 ACO [facility] C3 ACO C3 ACO C3 ACO C3 [employer] [id number] [facility] C3 ACO [facility] C3 ACO Advance Directives For more information, please contact: [phone] (9AM - 5PM [facility], Monday-Monday) Documents on File Type Date Recorded 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 It is not the complete legal health record.[facility]
--- NOTE | 2025-07-12 17:19 | ED_ITS ---
HPI - Alcohol General Chief Complaint: ETOH/Substance Use Stated Complaint: ETOH A&Ox3 sleeping on street Time Seen by Provider: 07/12/25 16:56 Source: patient, EMS and old records reviewed Mode of arrival: EMS Limitations: no limitations History of Present Illness ED Provider: DR. Goldsmith HPI narrative: 55-year-old male history of chronic ETOH use disorder, homelessness brought in by EMS because patient found intoxicated in the street, patient admit to drinking alcohol and vodka today, no head trauma, no falls, patient is well known to our ED staff patient acting at his baseline today. Reportedly by EMS was satting 89% on room air patient in the ED is satting 95% with 2 L nasal cannula. No SI, no HI, no hallucination. Related Data Home Medications ?Medication ?Instructions ?Recorded ?Confirmed acetaminophen 325 mg tablet 325 mg PO Q6H PRN Migraine Headache 06/19/25 06/19/25 Previous Rx's ?Medication ?Instructions ?Recorded amoxicillin 875 mg-potassium 1 tab PO BID #9 tabs 06/13 02/04 clavulanate 125 mg tablet magnesium oxide 500 mg capsule 500 mg PO BID #90 caps 06/25/25 Allergies Allergy/AdvReac Type Severity Reaction Status Date / Time No Known Allergies (No Known Allergy Verified 07/12/25 16:43 Allergies*) Review of Systems 2 Review of Systems: All other systems are reviewed and are negative Constitutional: Reports as per HPI and Reports no additional constitutional complaints Eyes: Reports as per HPI and Reports no additional eye complaints Reports system reviewed and no additional complaints, except as documented Cardiovascular: Reports as per HPI and Reports no additional cardiovascular complaints Respiratory: Reports as per HPI and Reports no additional respiratory complaints Gastrointestinal: Reports as per HPI and Reports no additional gastrointestinal complaints Genitourinary: Reports no additional female genitourinary complaints Musculoskeletal: Reports no additional musculoskeletal complaints Skin/Breast: Reports system reviewed and no additional complaints, except as docu Psychiatric: Reports no additional psychiatric complaints Endocrine: Reports no additional endocrine complaints Hematologic/Lymphatic: Reports no additional hematologic/lymphatic complaints Allergic/Immunologic: Reports no additional allergic/immunologic complaints Reports system reviewed and no additional complaints, except as documented and Reports Abnormal speech present PMFSH Past Medical History Medical History Alcohol use disorder CHF (congestive heart failure) Alcohol abuse Acute hypoxemic respiratory failure Anemia Pneumonia Alcohol withdrawal syndrome Pancytopenia Alcohol abuse Thrombocytopenia Esophageal varices Acute on chronic anemia Alcoholic liver disease Aspiration pneumonia Thrombocytopenia Malnutrition CHF (congestive heart failure) Anemia Hypomagnesemia Cirrhosis Thrombocytopenia Acute on chronic anemia CHF (congestive heart failure) Anemia Alcohol abuse Surgical History No history of previous surgery Social History Social History Household Members: Unknown / Unable to assess Household Members Other:: pt lives on street Housing: Homeless Housing Other:: [facility]eless pen[facility] Do you presently have visiting nurse or other home services: No Unable to assess alcohol history related to: Refusing to respond Alcohol intake: current Alcohol intake frequency: 3 or more drinks per day Alcohol type: beer and hard liquor Comment: pt refuse to have staff remain in [place] Patient Tobacco Use Status: Former Tobacco user Tobacco use type: Cigarette Second Hand Smoke Exposure: No Advance Directives: Yes Advance Directives on File: Yes Advance Directives Date on File: 07/13/23 service: No Physical Exam ED Vital Signs: Vital Signs - 24 hr 07/12/25 16:42 07/12/25 16:51 07/12/25 17:28 Temperature 98.4 F Pulse Rate 76 77 Respiratory Rate 16 16 Blood Pressure 105/52 L Pulse Oximetry 88 L 95 88 L Oxygen Delivery Method Room Air Nasal Cannula Nasal Cannula Oxygen Flow Rate 2 2 07/12/25 17:31 07/12/25 17:37 Temperature Pulse Rate 78 Respiratory Rate Blood Pressure Pulse Oximetry 95 96 Oxygen Delivery Method Nasal Cannula Nasal Cannula Oxygen Flow Rate 4 3 BMI result Body Mass Index 23.3 Vital signs have been reviewed and appear to be correct. Blood pressure elevated. Heart rate normal. Respiratory rate normal. Temperature normal. Oxygen saturation normal. Appearance: Alert. Oriented X3. No acute distress. Head: Normal external exam. Normocephalic. Atraumatic. No [place] signs noted. No raccoon eyes noted Eyes: PERRLA. EOMI. Conjunctiva and sclera normal. Eyelids normal. ENT: TM's Normal. Pharynx normal. Uvula midline. Moist mucous membranes. No trismus noted. No drooling noted. No muffled voice noted. Neck: Normal inspection. Neck supple. FROM. No adenopathy. Thyroid Normal. No meningeal signs. No neck mass noted. CVS: Normal heart rate and rhythm. Heart sound normal. No murmurs noted. Pulses normal throughout. Respiratory: No respiratory distress. Painless inspiration. Breath sounds normal. No wheezes/rales/rhonchi noted. Chest nontender. No accessory muscle usage noted or decreased air movement noted. Abdomen: Soft and nontender. Bowel sounds normal in all 4 quadrants. No distention noted. No organomegaly noted. No visible injury noted. Back: No CVA tenderness. Full range of motion noted. Skin: Skin warm and dry. Normal skin color. Normal skin turgor. No rashes/lesions/lacerations noted. Extremities: No lower extremity edema. Extremities exhibit normal range of motion. Extremities nontender. Neuro: Oriented X 3. Cranial nerve exam: II-XII are grossly intact No motor deficit. No sensory deficit. Reflexes normal. Course Reevaluation(s) Reevaluation #1: 55-year-old male who is well known to our ED staff came in for evaluation after found drinking in the street, patient was not intoxicated was sober enough to walk in steady gait, patient got mad because he did not have food to eat in the emergency department patient walked out before full evaluation. Chest x-ray is showed pneumonia patient will probably need an antibiotic attempt to call the patient on cell #[phone]. With no answer. Time: 18:25 Medical Decision Making Differential Diagnosis Differential Diagnoses: The differential diagnosis associated with the presentation includes (Pneumonia, pneumothorax, CHF, alcohol intoxication, electrolyte derangement, severe anemia.) Admission/Observation Consideration of admission/observation: Escalation of care including admission/observation considered Lab Data MDM Lab Attestation statement: I reviewed the patient's lab results. 07/12/25 17:51 07/12/25 17:51 Labs: Lab Results 07/12/25 Range/Units 17:51 WBC 3.2 L (4.8-10.8) X10*3/uL RBC 3.24 L (4.60-5.80) X10*6/uL Hgb 9.9 L (14.0-18.0) g/dl Hct 30.8 L (42.0-52.0) % MCV 95.1 (80.0-98.0) fL MCH 30.6 (27.0-33.0) pg MCHC 32.1 (31.0-36.0) g/dl RDW 17.4 H (11.0-16.0) % Plt Count 40 L D (160-400) X10*3/uL MPV 11.6 (9.4-12.4) fL Immature Gran % (Auto) 0.3 (0.0-0.4) % Neut % (Auto) 56.5 (45-73) % Lymph % (Auto) 27.8 (20-40) % Sully % (Auto) 10.0 (2-11) % Eos % (Auto) 3.8 (0-4) % Baso % (Auto) 1.6 (0-2) % Lymph # (Auto) 0.9 L (1.2-4.9) X10*3/uL Sully # (Auto) 0.3 (0.1-1.2) X10*3/uL Eos # (Auto) 0.1 (0.0-0.4) X10*3/uL Baso # (Auto) 0.1 (0.0-0.2) X10*3/uL Abs Immat Gran (auto) 0.01 (0.00-0.03) X10*3/uL Absolute Neuts (auto) 1.8 L (2.0-8.3) x10*3/uL Absolute Nucleated RBC 0.000 (0.0-0.012) X10*3/uL Nucleated RBC % (auto) 0.0 (0.0-0.2) /100WBC Sodium 145 (135-145) mmol/L Potassium 3.6 (3.3-5.1) mmol/L Chloride 113 H (96-108) mmol/L Carbon Dioxide 20 L (22-29) mmol/L Anion Gap 16 (12-20) BUN 10 (9-16) mg/dL Creatinine 0.75 (0.5-1.4) mg/dL Estim Creat Clear Calc 95.6 Estimated GFR > 60 Random Glucose 97 (60-115) mg/dL Calcium 8.2 L (8.4-10.2) mg/dL Independent Interpretation I performed an independent interpretation of an: Plain X-Ray (Chest: Mild atypical pneumonia.) Radiology Impression Discussion of test interpretation with radiology: I have reviewed the radiologist's reading. Discharge Plan Discharge Clinical Impression: Pneumonia, Alcoholic intoxication Patient Disposition: Elopement Prescriptions: No Action acetaminophen 325 mg Tablet 325 mg PO Q6H PRN (Reason: Migraine Headache) amoxicillin-pot clavulanate 875-125 mg tablet 1 tab PO BID Qty: 9 0RF Rx Instructions: Take one tablet twice a day with food for the next 4 days. Begin taking the evening of 06/25 and finish on 06/29. Complete whole course of antibiotics magnesium oxide 500 mg capsule 500 mg PO BID Qty: 90 0RF Rx Instructions: Take one capsule twice a day Discharge Date/Time: 07/12/25 18:29 Print Language: [place]
[2025-07-12 17:28] VITALS: O2SAT 88
[2025-07-12 17:31] VITALS: O2SAT 95
[2025-07-12 17:37] VITALS: PULSE 78; O2SAT 96
[2025-07-12 17:55] LABS: MANUAL DIFF FLAG NO
[2025-07-12 17:58] LABS: Hematocrit 30.8 % (42.0-52.0); Hemoglobin 9.9 g/dl (14.0-18.0); Imm Gran Abs Auto 0.01 X10*3/uL (0.00-0.03); Imm Gran Pct Auto 0.3 % (0.0-0.4); Lymphocytes Absolute Auto 0.9 X10*3/uL (1.2-4.9); Mean Corpuscular HGB Conc 32.1 g/dl (31.0-36.0); Mean Corpuscular Hemoglobin 30.6 pg (27.0-33.0); Mean Corpuscular Volume 95.1 fL (80.0-98.0); NRBC Abs Auto 0.000 X10*3/uL (0.0-0.012); NRBC Pct Auto 0.0 /100WBC (0.0-0.2); Red Blood Count 3.24 X10*6/uL (4.60-5.80); White Blood Count 3.2 X10*3/uL (4.8-10.8)
[2025-07-12 18:07] LABS: Platelet Count 40 X10*3/uL (160-400)
[2025-07-12 18:20] LABS: Anion Gap 16 (12-20); Blood Urea Nitrogen 10 mg/dL (9-16); Calcium 8.2 mg/dL (8.4-10.2); Carbon Dioxide 20 mmol/L (22-29); Chloride 113 mmol/L (96-108); Creatinine Clr Calc Pharmacy 95.6; Estimated Glomerular Filt Rate > 60; Potassium 3.6 mmol/L (3.3-5.1); Sodium 145 mmol/L (135-145)
--- NOTE | 2025-07-12 18:23 | PC.NURSE ---
Pt was wondering around ED, yelling at staff regarding snack offerings. Steady on feet. Dr Goldsmith consulted and pt was allowed to walk out of ED.
[2025-07-12 18:25] LABS: B Type Natriuretic Peptide 203 pg/mL (<100)
[2025-07-12 18:29] LABS: Troponin-I High Sensitivity < 2.7 ng/L (<3.5-35.0)
== END 2025-07-12 18:29 | disposition left against medical advice (07) ==
PROVIDERS: Emergency Provider Emergency Medicine
DX: J18.9 Pneumonia, unspecified organism (principal); F10.129 Alcohol abuse with intoxication, unspecified; R06.02 Shortness of breath; Y90.9 Presence of alcohol in blood, level not specified; Z59.00 Homelessness unspecified; Z87.891 Personal history of nicotine dependence
CPT/HCPCS: 36415; 71045; 80048; 83880; 84484; 85025; 99283; 99284

== ENCOUNTER → 2025-07-12 17:25 | Outpatient (BNV) | payer MEDICAID, SELFPAY | PROVIDERS: Emergency Provider Emergency Medicine; Visit Provider Radiology Diagnostic Radiology | DX: R09.02 Hypoxemia (principal) | CPT/HCPCS: 71045 ==

== ENCOUNTER 2025-07-12 21:26 | Inpatient (IN) | payer MEDICAID, SELFPAY ==
--- NOTE | ~2025-07-12 | CT_ITS ---
CLINICAL HISTORY: hypoxia CT angiography chest with contrast. 3D Postprocessing. Comparison: CT - CT CHEST W IV CON - 06/19/25 00:56 EDT Findings: The heart size is enlarged. RV/LV ratio is normal. The thoracic aorta is normal caliber. No acute pulmonary embolus. The visualized thyroid and mediastinum are unremarkable. Diffuse ground-glass opacities in the right lower lobe, left upper lobe, and left lower lobe. No focal consolidation containing air bronchograms to suggest a consolidative pneumonia. No bronchiectasis. No pneumothorax or pleural effusions. Hepatic steatosis. Partially visualized varices and splenomegaly, as sequela of known cirrhosis. The bones are intact. IMPRESSION: No pulmonary embolus. Cardiomegaly and diffuse ground-glass opacity in the right lower lobe, left upper lobe, and left lower lobe, likely vascular congestion in the setting of CHF. This document has been electronically signed by: Oskar Tariq MD on 07/13/2025 05:19:15
[2025-07-12 21:39] VITALS: BP 127/69; BP 138/60; PULSE 69; PULSE 72; RESP 18; TEMP 36.1; O2SAT 72; O2SAT 91; BMI 21.5
--- NOTE | 2025-07-12 23:30 | MHC.EDTECH ---
Pt voided on the side of the bed to the floor. Assisted pt with clean hospital clothes and fresh sheets. Pt clothes putted in the washer in the Pod.
[2025-07-13] VITALS (7 sets, daily range): BP systolic 93–132; BP diastolic 43–75; PULSE 72–84; RESP 14–20; TEMP 36.4–37.4; O2SAT 92–100; BMI 21.8
--- NOTE | 2025-07-13 01:59 | ED_ITS ---
HPI - General Adult General Chief complaint: ETOH/Substance Use Stated complaint: ETOH, 92% NC 4 L, tremors, Time Seen by Provider: 07/12/25 22:19 Source: patient and EMS Limitations: other (Intoxicated) History of Present Illness ED Provider: Trudy Brannon PA-C HPI narrative: 55-year-old male with a history of alcohol use disorder, end-stage liver cirrhosis, chronic thrombocytopenia, chronic dependent edema, recurrent pneumonia, who presents being found intoxicated in public. Patient was found sitting on a bench outside of a liquor store, the patient's at the store called EMS. Per EMS, the patient was noting to be 72 percent on room air. He is currently on a nasal cannula 4 liters with an oxygen saturation of 91 percent. History limited as the patient has been hostile and belligerent today, not wa nting to engage in conversation so as to obtain detailed history. Related Data Home Medications ?Medication ?Instructions ?Recorded ?Confirmed acetaminophen 325 mg tablet 325 mg PO Q6H PRN Migraine Headache 06/19/25 06/19/25 Previous Rx's ?Medication ?Instructions ?Recorded amoxicillin 875 mg-potassium 1 tab PO BID #9 tabs 06/13 02/04 clavulanate 125 mg tablet magnesium oxide 500 mg capsule 500 mg PO BID #90 caps 06/25/25 Allergies Allergy/AdvReac Type Severity Reaction Status Date / Time No Known Allergies (No Known Allergy Verified 07/12/25 21:41 Allergies*) Review of Systems Review of Systems: Unable to obtain secondary to intoxication Yes all other systems are reviewed and are negative PMFSH Past Medical History Attestation statement: The following information was validated with the patient. Medical History Alcohol use disorder CHF (congestive heart failure) Alcohol abuse Acute hypoxemic respiratory failure Anemia Pneumonia Alcohol withdrawal syndrome Pancytopenia Alcohol abuse Thrombocytopenia Esophageal varices Acute on chronic anemia Alcoholic liver disease Aspiration pneumonia Thrombocytopenia Malnutrition CHF (congestive heart failure) Anemia Hypomagnesemia Cirrhosis Thrombocytopenia Acute on chronic anemia CHF (congestive heart failure) Anemia Alcohol abuse Surgical History No history of previous surgery Social History Social History Household Members: Unknown / Unable to assess Household Members Other:: pt lives on street Housing: Homeless Housing Other:: Homeless skilled nursing Do you presently have visiting nurse or other home services: No Unable to assess alcohol history related to: Refusing to respond Alcohol intake: current Alcohol intake frequency: 3 or more drinks per day Alcohol type: beer and hard liquor Comment: pt refuse to have staff remain in BR Patient Tobacco Use Status: Former Tobacco user Tobacco use type: Cigarette Second Hand Smoke Exposure: No Advance Directives: Yes Advance Directives on File: Yes Advance Directives Date on File: 07/13/23 Do you have a plan to hurt others: No Plan service: No Physical Exam ED Vital Signs: Vital Signs - 24 hr 07/12/25 21:39 Temperature 97.0 F Pulse Rate 72 Respiratory Rate 18 Blood Pressure 127/69 Pulse Oximetry 91 L Oxygen Delivery Method Nasal Cannula BMI result Body Mass Index 21.5 Const Other: Sleeping, easily woken with verbal stimuli Orientation/consciousness: patient oriented x3 Resp Other: Nonlabored respirations, poor inspiratory effort, can not auscultate lung sánchez Cardio Other: Normal peripheral perfusion, trace pedal edema Skin Other: Warm dry no rash Neuro General: patient oriented x3, gait normal, no focal motor deficits and CN's II- XI intact bilaterally Psych Other: Cooperative for now Course Reevaluation(s) Reevaluation #1: Per Dr. Ferguson he is requesting a CTA of the chest to rule out PE Medications Administered Discontinued Medications Generic Name Dose Route Start Last Admin Trade Name Freq PRN Reason Stop Dose Admin Iohexol 65 ml 07/13/25 04:05 07/13/25 04:08 Iohexol 350 Mg/Ml 100 Ml Infus..Btl IV 07/13/25 04:06 65 ml ONCE ONE Administration Medical Decision Making Medical Decision Making [facility] Narrative: 55-year-old male with a history of alcohol use disorder, end-stage liver cirrhosis, chronic thrombocytopenia, chronic dependent edema, recurrent pneumonia, who presents being found intoxicated in public. Patient was found sitting on a bench outside of a liquor store, the patient's at the store called EMS. Per EMS, the patient was noting to be 72 percent on room air. He is currently on a nasal cannula 4 liters with an oxygen saturation of 91 percent. History limited as the patient has been hostile and belligerent today, not wanting to engage in conversation so as to obtain detailed history. Problem: Housing and security, alcohol use disorder, cirrhosis, recurrent pneumonia History: Per EMS I have considered the following differential diagnoses: Hypoxia, no pneumonia Plan: Patient was found to have pneumonia earlier today, he is also objectively hypoxic. We will be adding on blood cultures and lactic, starting ceftriaxone and doxycycline. We will admit him to the hospital. I have independently reviewed the following tests: Labs: Stable pancytopenia, No additional electrolyte abnormalities, Lactic 1.5 CXR: Findings: Mild bilateral perihilar opacity. Heart size is normal. No acute fracture. IMPRESSION: Mild atypical pneumonia. Differential Diagnosis Differential Diagnoses: The differential diagnosis associated with the presentation includes See MDM Admission/Observation Consideration of admission/observation: Escalation of care including admission/observation considered We will be admitted to the hospital Consult Healthcare Provider Management of the patient was discussed with: Hospitalist Lab Data [facility] Lab Attestation statement: I reviewed the patient's lab results. Labs: Lab Results 07/13/25 Range/Units 02:48 Lactic Acid 1.5 (0.5-2.0) mmol/L Radiology Impression Discussion of test interpretation with radiology: I have reviewed the radiologist's reading. Independent Historian Clinical information obtained from an independent historian. History obtained from or confirmed by: EMS Critical Care Time Critical Care Time Critical Care Time: Yes Total Critical Care Time: 35 Attestation: I Trudy Brannon personally performed 35 minutes of critical care time not including lines and procedures; need for IV antibiotics, hypoxia, pneumonia, PE workup Discharge Plan Discharge Clinical Impression: Pneumonia, Hypoxia Patient Disposition: Admitted As Inpatient Print Language: [place] Citizen
[2025-07-13] MEDS: iohexoL 350 MG/ML 100 ML INFUS..BTL 65 ML IV (04:08)
--- NOTE | 2025-07-13 04:17 | P.HPHOSP_ITS ---
History of Present Illness Date of Service: 07/13/25 Chief Complaint: hypoxia 55-year-old male with a past medical history of alcohol use disorder, liver cirrhosis, GERD, chronic thrombocytopenia, homeless; presented to the hospital with a chief complaint of alcohol intoxication. Patient was found outside the liquor store binge sleeping; subsequently EMS was called in. EMS noted that patient was hypoxic to 70s. Placed on supplemental oxygen and brought him to the ER. In the ER patient was noted to be hypoxic to mid 80s and placed on supplemental oxygen. Patient is lying in the bed comfortable. Denies any cough or shortness of breath. Denies any chest pain or palpitations. Review of all other systems is limited. ER course: Per ER team, patient presented earlier in the day and was intoxicated; and was also hypoxic; but later patient started to be have inappropriate to the team and subsequently left the ER. And later he was found on the bench in front of the liquor store and came back to the hospital being hypoxic. Chest x-ray showed atypical pneumonia. Given antibiotics. CT chest ordered [facility] Medical History Alcohol use disorder CHF (congestive heart failure) Alcohol abuse Acute hypoxemic respiratory failure Anemia Pneumonia Alcohol withdrawal syndrome Pancytopenia Alcohol abuse Thrombocytopenia Esophageal varices Acute on chronic anemia Alcoholic liver disease Aspiration pneumonia Thrombocytopenia Malnutrition CHF (congestive heart failure) Anemia Hypomagnesemia Cirrhosis Thrombocytopenia Acute on chronic anemia CHF (congestive heart failure) Anemia Alcohol abuse Surgical History No history of previous surgery Social History Household Members: Unknown / Unable to assess Household Members Other:: pt lives on street Housing: Homeless Housing Other:: Homeless penitentiary Do you presently have visiting nurse or other home services: No Unable to assess alcohol history related to: Refusing to respond Alcohol intake: current Alcohol intake frequency: 3 or more drinks per day Alcohol type: beer and hard liquor Comment: pt refuse to have staff remain in BR Patient Tobacco Use Status: Former Tobacco user Tobacco use type: Cigarette Second Hand Smoke Exposure: No Advance Directives: Yes Advance Directives on File: Yes Advance Directives Date on File: 07/13/23 Do you have a plan to hurt others: No Plan service: No Meds Allergies Allergy/AdvReac Type Severity Reaction Status Date / Time No Known Allergies (No Known Allergy Verified 07/12/25 21:41 Allergies*) Active Medications: Current Medications Acetaminophen (Acetaminophen 325 Mg Tablet) 650 mg PO Q6H PRN PRN Reason: Pain, Mild 1-3,fever,headache Albuterol/Ipratropium (Albuterol/Iprat 2.5/0.5mg 3 Ml Ampul.Neb) 3 ml INHALE Q4H PRN PRN Reason: Shortness of Breath/Wheezing Benzonatate (Benzonatate 100 Mg Capsule) 100 mg PO TID PRN PRN Reason: Cough Calcium Carbonate (Calcium Carbonate 750 Mg Tab.Chew) 750 mg PO Q4H PRN PRN Reason: Heartburn Ceftriaxone Sodium (Ceftriaxone Sodium 1 Gm Vial) 1 gm IVPUSH Q24H JOSE MANUEL Doxycycline Monohydrate (Doxycycline Monohydrate 100 Mg Capsule) 100 mg PO Q12H JOSE MANUEL Famotidine (Famotidine 20 Mg Tablet) 20 mg PO BID JOSE MANUEL Folic Acid (Folic Acid 1 Mg Tablet) 1 mg PO DAILY JOSE MANUEL Stop: 07/16/25 08:59 Lactated Ringer's (Lr) 1,000 mls @ 100 mls/hr IVCONT .Q10H JOSE MANUEL Lorazepam (Lorazepam 1 Mg Tablet) 1 mg PO Q4H PRN PRN Reason: Breakthrough alcohol withdrawa Stop: 07/17/25 04:12 Magnesium Hydroxide (Milk Of Magnesia 30 Ml Oral.Susp) 30 ml PO DAILY PRN PRN Reason: Constipation Melatonin (Melatonin 3 Mg Tablet) 6 mg PO BEDTIME PRN PRN Reason: Insomnia Multivitamins/Vitamin C (Multivitamin Tablet) 1 tab PO DAILY JOSE MANUEL Stop: 07/16/25 08:59 Polyethylene Glycol (Polyethylene Glycol 3350 17 Gm Powd.Pack) 17 gm PO DAILY PRN PRN Reason: Constipation Sodium Chloride (0.9 % Sodium Chloride Flush 3 Ml Syringe) 3 ml IVFLUSH QSHIFT JOSE MANUEL Thiamine HCl (Thiamine Hcl 100 Mg Tablet) 100 mg PO DAILY JOSE MANUEL Stop: 07/16/25 08:59 Home Medications ?Medication ?Instructions ?Recorded ?Confirmed ?Last Taken ?Type acetaminophen 325 mg tablet 325 mg PO Q6H PRN Migraine Headache 06/19/25 06/19/25 Unknown History Physical Exam Vital Signs and Narrative: Vital Signs: Last Vital Signs Temp 97.0 F 07/12/25 21:39 Pulse 72 07/12/25 21:39 Resp 18 07/12/25 21:39 BP 127/69 07/12/25 21:39 Pulse Ox 91 L 07/12/25 21:39 O2 Del Method Nasal Cannula 07/12/25 21:39 Oxygen Flow Rate 4 07/12/25 21:39 BMI result Body Mass Index 21.5 Gen: Appears be in no acute distress HEENT: NCAT, Moist mucosa. Pulmonary: Coarse breath sounds CVS: Normal S1-S2 Abdomen: BS+, Soft, Nontender Extremities: Warm well perfused Neuro: Alert and awake. Results Labs Labs: Laboratory Results - last 24 hr 07/13/25 02:48 Lactic Acid 1.5 Assessment and Plan (1) Pneumonia: Qualifiers: Laterality: unspecified laterality Lung location: unspecified part of lung Pneumonia type: due to unspecified organism Qualified Code(s): J18.9 - Pneumonia, unspecified organism Status: Acute Plan 55-year-old male with a past medical history of alcohol use disorder, liver cirrhosis, GERD, chronic thrombocytopenia, homeless; presented to the hospital with a chief complaint of alcohol intoxication. Admitted for following Acute hypoxic respiratory failure: Pneumonia: Suspected aspiration Patient currently on supplemental oxygen at 4 L. Continue ceftriaxone and doxycycline Follow-up cultures Trending pulse oximetry when ready for discharge Sujey colunga Follow-up CT chest results HAT BLOCKING OPERATOR eval Gentle IV fluids Liver cirrhosis: Chronic thrombocytopenia: Patient is on Lasix at home-noncompliant. Alcohol use disorder: Will monitor on CIWA protocol with Ativan. Thiamine folate and multivitamins. 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 GERD: Pepcid Code status: Full code DVT prophylaxis: SCD boots Quality Stroke Does the patient have a stroke diagnosis?: No VTE Prior VTE?: No VTE Risk Level:: Medical - moderate - high VTE Device Contraindication: Treatment Not Indicated VTE Drug Contraindication: N/A - Med Ordered
[2025-07-13 04:37] LABS: Hematocrit 29.0 % (42.0-52.0); Hemoglobin 9.1 g/dl (14.0-18.0); Imm Gran Abs Auto 0.01 X10*3/uL (0.00-0.03); Imm Gran Pct Auto 0.4 % (0.0-0.4); Lymphocytes Absolute Auto 0.8 X10*3/uL (1.2-4.9); MANUAL DIFF FLAG SCAN; Mean Corpuscular HGB Conc 31.4 g/dl (31.0-36.0); Mean Corpuscular Hemoglobin 30.5 pg (27.0-33.0); Mean Corpuscular Volume 97.3 fL (80.0-98.0); NRBC Abs Auto 0.000 X10*3/uL (0.0-0.012); NRBC Pct Auto 0.0 /100WBC (0.0-0.2); Red Blood Count 2.98 X10*6/uL (4.60-5.80); SCAN SMEAR FLAG 1
[2025-07-13 04:38] LABS: Platelet Count 36 X10*3/uL (160-400); White Blood Count 2.4 X10*3/uL (4.8-10.8)
[2025-07-13 04:56] LABS: Alanine Aminotransferase 11 U/L (0-40); Albumin Level 3.0 g/dL (3.5-5.0); Alkaline Phosphatase 134 U/L (39-117); Anion Gap 13 (12-20); Aspartate Amino Transferase 68 U/L (5-37); Blood Urea Nitrogen 8 mg/dL (9-16); Calcium 7.6 mg/dL (8.4-10.2); Carbon Dioxide 21 mmol/L (22-29); Chloride 115 mmol/L (96-108); Creatinine Clr Calc Pharmacy 98.7; Estimated Glomerular Filt Rate > 60; Potassium 3.4 mmol/L (3.3-5.1); Sodium 146 mmol/L (135-145); Total Protein 7.1 g/dL (6.5-8.0)
--- NOTE | 2025-07-13 05:40 | MHC.EDTECH ---
Went to put pt's clothes in the dryer, but noted washer had not started during the previous cycle. Wash cycle initiated.
--- NOTE | 2025-07-13 05:46 | PC.NURSE ---
Late entry for 0415 Administrative Office Specialist to bedside to complete IV antibiotics and flush line. IV line was found to be on the ground with catheter tip intact. Unfortunately there is no way of knowing how much medication the pt did or did not receive, as it is unclear as to when the IV line came out.
[2025-07-13] MEDS: Lactated Ringers 1,000 ML 100 ML IVCONT ×3 (06:34→23:58)
--- NOTE | 2025-07-13 06:35 | PC.NURSE ---
Pt pulled 1st IV out while infusing, reports it was stinging , however did not make any one aware. Physician notified.
--- NOTE | 2025-07-13 06:42 | PC.NURSE ---
RN attempted to perform CIWA on patient, patient continues to sleep soundly, responding with mumbling only. Physician aware, will attempt CIWA when pt is more awake.
--- NOTE | 2025-07-13 07:42 | PM.EVENT ---
Event Note Date of Service: 07/13/25 Event Note: Pt seen/examined, labs, med and imaging reviewed. 55/m with alcoholic liver cirrhosis with pancytopenia, apears stable. Admitted with acute hypoxic resp failure, suspect aspiration but also concer of CHF A./P per H and of this morning, BNP relatively low and so unlikely heart failure, wean off O2 Time Spent With Patient Time: Total time managing care of this patient today ____ minutes.
--- NOTE | 2025-07-13 08:09 | PC.NURSE ---
Assumed care of pt at 0700. Pt resting quietly on ED stretcher in 22h. Moved to ED 22 for O2 and tele monitor- pt remains on 3L O2, sats remain >92%. Respirations even and unlabored, no increased wob/sob noted, placed on electronic device monitor, normal sinus- HR 60s to 70s, denies CP/SOB. Vitals cycled and updated in worklist- BP soft, aware. LR running per JAN, 20g IV Left forearm/wrist. Per previous RN notes/JAN- pt self removed IV while IV abx Doxycyline running. This RN unsure how much abx pt received. Per MD Nguyen- ok to continue with next dose of doxycyline. This RN unable to accurately document in MAR how much abx pt received, per MAR medication remains paused. Call harris within reach, all needs met at this time.
--- NOTE | 2025-07-13 08:11 | PHA.MEDREC ---
Pharmacy Consult ? Medication Reconciliation Pharmacy has completed the medication reconciliation.Patient very drowsy when I went to talk with him. He states he was not taking any medications. He was previously prescribed thiamine and naltrexone based on pharmacy claims history, but does not seem like he had been taking this.
[2025-07-13 08:16] LABS: B Type Natriuretic Peptide 102 pg/mL (<100)
--- NOTE | 2025-07-13 14:11 | MHC.SL.SWA ---
Speech Pathologist Impression: Oropharyngeal coordination WNL. Pt denied hx of dysphagia but endorsed frequent intoxication. Risk of Aspiration Due to: Weakness Current dx PNA Hx GI involvement Dysphasia Diet Status: Recc regular diet with thin liquids, aspiraiton precautions Liquid Consistency and Strategies for Safe Swallow: Liquid Intake Recommendation: Thin Liquid Intake Strategies: Solid Food Consistency: Dietary Recommendations: Regular Additional Modifications to Solid Foods: Patient can independently feed self. Oral Medication Intake: Whole with Liquid Please contact the pharmacy regarding appropriate crushable or liquid drug formulations that are available whenever modified delivery is recommended. Compensatory Strategies and Precautions to be Taken for Safe Swallow: Supervision While Eating and Drinking for Safe Swallow: None Needed Foods to Avoid: tough, hard, difficult to chew solids. Swallowing Recommended Treatments: Recommendation for Speech: Inpatient Speech Therapy Comment: Pt alert, expressing needs and questioning reason for hospitalization. Pt denied having PNA in the past or right now, only noting his feet were swollen and that this happened before. Pt in agreement with clinical bedside swallow evaluation, stating he just wanted to have some soup but he wasn't allowed. Pt verbalized understanding of reason for bedside swallow, still denying that he has PNA. Oropharyngeal swallow WNL, no overt s/s of aspiration with regular solids, purees and thins. Recc regular and thin liquid consistencies. THREAD PULLER reviewed recc with pt, who agrees to having regular food and to THREAD PULLER following during his hospital stay as indicated. Pt observed to be tremorous, stating he is detoxing. MD aware. Frequency/Duration: Daily M-F Date Range for Service Req: Timeline to reassess: Benzene Washer Clinican/Clinical Fellow: No Supervisory Statement: I have reviewed and agree with the student/clinical fellow's documentation: N/A Speech Language Pathologist: Cee Courtney M.S., [facility] [place]
--- NOTE | 2025-07-13 16:07 | MHC.CM.PN ---
Pt [address], no PCP and no home health services. DCP: to return to street. CM to follow for DC needs.
[2025-07-13] MEDS: 0.9 % Sodium Chloride Flush 3 ML SYRINGE IVFLUSH (23:59)
[2025-07-14] VITALS (8 sets, daily range): BP systolic 112–148; BP diastolic 55–65; PULSE 68–87; RESP 18; TEMP 36.8–37.2; O2SAT 91–96
[2025-07-14] MEDS: 0.9 % Sodium Chloride Flush 3 ML SYRINGE IVFLUSH ×3 (07:48→20:08)
--- NOTE | 2025-07-14 09:56 | HO.PM.IMPN ---
Subjective Subjective Date of Service: 07/14/25 Interval History: f/u on acute hypoxic resp failure in setting on PNA, likely aspiration, chronic alcoholic, non compliant with meds for cirrhosis, frequent hospitalization, usually very hypoxic for proglonged periodic has been section 35 in past but has not helped with alcoholism. He is requiring less O2 today Review of Systems Unable to obtain secondary to intoxication Physical Exam Vital Signs: Vital Signs: Last Vital Signs Temp 99.0 F 07/14/25 07:06 Pulse 68 07/14/25 07:06 Resp 18 07/14/25 07:06 BP 135/61 07/14/25 07:06 Pulse Ox 96 07/14/25 07:06 O2 Del Method Nasal Cannula 07/14/25 07:06 O2 Flow Rate 2 07/14/25 07:06 Oxygen Flow Rate 4 07/12/25 21:39 BMI result Body Mass Index 21.8 General: AO X 3, no acute distress Resp: CTA bilateral CVS: S1,S2,RRR GI: +BS, NT, no distention Skin: No rash Neuro: motor grossly intact Psych: appropriate affect Objective Data Active Medications Acetaminophen (Acetaminophen 325 Mg Tablet) 650 mg PO Q6H PRN PRN Reason: Pain, Mild 1-3,fever,headache Albuterol/Ipratropium (Albuterol/Iprat 2.5/0.5mg 3 Ml Ampul.Neb) 3 ml INHALE Q4H PRN PRN Reason: Shortness of Breath/Wheezing Benzonatate (Benzonatate 100 Mg Capsule) 100 mg PO TID PRN PRN Reason: Cough Calcium Carbonate (Calcium Carbonate 750 Mg Tab.Chew) 750 mg PO Q4H PRN PRN Reason: Heartburn Ceftriaxone Sodium (Ceftriaxone Sodium 1 Gm Vial) 1 gm IVPUSH Q24H [facility] Last Admin: 07/14/25 02:37 Dose: 1 gm Documented By: CHRISTOPHER Doxycycline Monohydrate (Doxycycline Monohydrate 100 Mg Capsule) 100 mg PO Q12H [facility] Last Admin: 07/14/25 07:47 Dose: 100 mg Documented By: FELIPA Famotidine (Famotidine 20 Mg Tablet) 20 mg PO BID [facility] Last Admin: 07/14/25 07:48 Dose: 20 mg Documented By: FELIPA Folic Acid (Folic Acid 1 Mg Tablet) 1 mg PO DAILY [facility] Stop: 07/16/25 08:59 Last Admin: 07/14/25 07:47 Dose: 1 mg Documented By: FELIPA Lorazepam (Lorazepam 1 Mg Tablet) 1 mg PO Q4H PRN PRN Reason: Breakthrough alcohol withdrawa Stop: 07/17/25 04:12 Magnesium Hydroxide (Milk Of Magnesia 30 Ml Oral.Susp) 30 ml PO DAILY PRN PRN Reason: Constipation Melatonin (Melatonin 3 Mg Tablet) 6 mg PO BEDTIME PRN PRN Reason: Insomnia Multivitamins/Vitamin C (Multivitamin Tablet) 1 tab PO DAILY [facility] Stop: 07/16/25 08:59 Last Admin: 07/14/25 07:48 Dose: 1 tab Documented By: FELIPA Ondansetron HCl (Ondansetron Hcl 4 Mg/2 Ml Vial) 4 mg IVPUSH Q8H PRN PRN Reason: Nausea and Vomiting Last Admin: 07/13/25 18:39 Dose: 4 mg Documented By: VADIM Polyethylene Glycol (Polyethylene Glycol 3350 17 Gm Powd.Pack) 17 gm PO DAILY PRN PRN Reason: Constipation Sodium Chloride (0.9 % Sodium Chloride Flush 3 Ml Syringe) 3 ml IVFLUSH QSHIFT [facility] Last Admin: 07/14/25 07:48 Dose: 3 ml Documented By: FELIPA Thiamine HCl (Thiamine Hcl 100 Mg Tablet) 100 mg PO DAILY [facility] Stop: 07/16/25 08:59 Last Admin: 07/14/25 07:47 Dose: 100 mg Documented By: FELIPA Labs 07/13/25 04:31 07/13/25 04:31 Microbiology Microbiology Results: Microbiology 07/13/25 02:48 Blood Culture - Preliminary Blood - Venous No growth after 24 hours. 07/13/25 02:48 Blood Culture - Preliminary Blood - Venous No growth after 24 hours. Assessment and Plan (1) Pneumonia: Status: Acute (2) Hypoxia: Status: Acute Plan 55-year-old male with a past medical history of alcohol use disorder, liver cirrhosis, GERD, chronic thrombocytopenia, homeless; presented to the hospital with a chief complaint of alcohol intoxication. Admitted for following Acute hypoxic respiratory failure: Pneumonia: Suspected aspiration Patient currently on supplemental oxygen at 2L which is better Continue ceftriaxone and doxycycline--seems to be responding to this Follow-up cultures Trending pulse oximetry when ready for discharge Sujey colunga SAND CASTER APPRENTICE recommends regular diet CT showed: No pulmonary embolus. Cardiomegaly and diffuse ground-glass opacity in the right lower lobe, left upper lobe, and left lower lobe, likely vascular congestion in the setting of CHF. but BNP is only 100 Stop IVF, 1 dose lasi Liver cirrhosis: Chronic thrombocytopenia: Patient is on Lasix at home-noncompliant. Alcohol use disorder: monitor on CIWA protocol with Ativan. Thiamine folate and multivitamins. 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 GERD: Pepcid Code status: Full code DVT prophylaxis: SCD boots Quality Stroke Does the patient have a stroke diagnosis?: No VTE Prior VTE?: No VTE Risk Level:: Medical - moderate - high VTE Device Contraindication: Treatment Not Indicated VTE Drug Contraindication: N/A - Med Ordered
[2025-07-14 10:30] LABS: Hematocrit 30.8 % (42.0-52.0); Hemoglobin 10.2 g/dl (14.0-18.0); Mean Corpuscular HGB Conc 33.1 g/dl (31.0-36.0); Mean Corpuscular Hemoglobin 30.8 pg (27.0-33.0); Mean Corpuscular Volume 93.1 fL (80.0-98.0); NRBC Abs Auto 0.000 X10*3/uL (0.0-0.012); NRBC Pct Auto 0.0 /100WBC (0.0-0.2); Red Blood Count 3.31 X10*6/uL (4.60-5.80)
[2025-07-14 10:31] LABS: Platelet Count 30 X10*3/uL (160-400); White Blood Count 2.5 X10*3/uL (4.8-10.8)
[2025-07-14 10:34] LABS: Anion Gap 11 (12-20); Blood Urea Nitrogen 8 mg/dL (9-16); Calcium 8.2 mg/dL (8.4-10.2); Carbon Dioxide 25 mmol/L (22-29); Chloride 108 mmol/L (96-108); Creatinine Clr Calc Pharmacy 95.8; Estimated Glomerular Filt Rate > 60; Potassium 3.8 mmol/L (3.3-5.1); Sodium 140 mmol/L (135-145)
[2025-07-14] MEDS: Furosemide 40 MG/4 ML VIAL IVPUSH (10:54)
--- NOTE | 2025-07-14 14:16 | MHC.SLORD ---
Speech Language Pathology Order Status: Pt seen for dysphagia treatment, ate all of his lunch except spinach. Pt tolerating diet as ordered. Pt has hx of GI issues but denies reflux at this time. HARDWARE ASSEMBLER signing off. RN consulted, no concerns reported with pt PO tolerance. notified.
[2025-07-15] VITALS (10 sets, daily range): BP systolic 107–128; BP diastolic 55–60; PULSE 70–83; RESP 16–20; TEMP 36.9–37.5; O2SAT 81–96
[2025-07-15] MEDS: 0.9 % Sodium Chloride Flush 3 ML SYRINGE IVFLUSH ×2 (07:43→16:41)
[2025-07-15] MEDS: Furosemide 40 MG/4 ML VIAL IVPUSH (07:44)
--- NOTE | 2025-07-15 13:27 | MHC.CM.PN ---
EMR REVIEWED, PT W/PNA REMAINS ON 2L O2 NC AND IV ABX, ANTIC PT WILL DC BACK TO STREET ONCE OFF O2, CM WILL CONT TO FOLLOW DC NEEDS.
--- NOTE | 2025-07-15 18:52 | HO.PM.IMPN ---
Subjective Subjective Date of Service: 07/15/25 Interval History: Pt seen this am, denies any sx, states still SOB, on 2l nc desat with ambulation f/u on acute hypoxic resp failure in setting on PNA, likely aspiration, chronic alcoholic, non compliant with meds for cirrhosis, frequent hospitalization, usually very hypoxic for proglonged periodic has been section 35 in past but has not helped with alcoholism. Review of Systems -ve except as stated above Physical Exam Exam: Exam: General: AO X 3, no acute distress Resp: CTA bilateral, on 2 L nc CVS: S1,S2,RRR GI: +BS, NT, no distention Skin: No rash Neuro: motor grossly intact Psych: appropriate affect Vital Signs: Vital Signs: Last Vital Signs Temp 98.8 F 07/15/25 15:47 Pulse 82 07/15/25 15:47 Resp 20 07/15/25 15:47 BP 107/56 L 07/15/25 15:47 Pulse Ox 94 07/15/25 15:47 O2 Del Method Nasal Cannula 07/15/25 15:47 O2 Flow Rate 2 07/15/25 15:47 Oxygen Flow Rate 4 07/12/25 21:39 BMI result Body Mass Index 21.8 Objective Data Active Medications Acetaminophen (Acetaminophen 325 Mg Tablet) 650 mg PO Q6H PRN PRN Reason: Pain, Mild 1-3,fever,headache Albuterol/Ipratropium (Albuterol/Iprat 2.5/0.5mg 3 Ml Ampul.Neb) 3 ml INHALE Q4H PRN PRN Reason: Shortness of Breath/Wheezing Benzonatate (Benzonatate 100 Mg Capsule) 100 mg PO TID PRN PRN Reason: Cough Calcium Carbonate (Calcium Carbonate 750 Mg Tab.Chew) 750 mg PO Q4H PRN PRN Reason: Heartburn Ceftriaxone Sodium (Ceftriaxone Sodium 1 Gm Vial) 1 gm IVPUSH Q24H [facility] Last Admin: 07/15/25 02:40 Dose: 1 gm Documented By: HAO Doxycycline Monohydrate (Doxycycline Monohydrate 100 Mg Capsule) 100 mg PO Q12H [facility] Last Admin: 07/15/25 07:43 Dose: 100 mg Documented By: ISABEL Famotidine (Famotidine 20 Mg Tablet) 20 mg PO BID [facility] Last Admin: 07/15/25 07:44 Dose: 20 mg Documented By: ISABEL Folic Acid (Folic Acid 1 Mg Tablet) 1 mg PO DAILY [facility] Stop: 07/16/25 08:59 Last Admin: 07/15/25 07:43 Dose: 1 mg Documented By: IASBEL Lorazepam (Lorazepam 1 Mg Tablet) 1 mg PO Q4H PRN PRN Reason: Breakthrough alcohol withdrawa Stop: 07/17/25 04:12 Magnesium Hydroxide (Milk Of Magnesia 30 Ml Oral.Susp) 30 ml PO DAILY PRN PRN Reason: Constipation Melatonin (Melatonin 3 Mg Tablet) 6 mg PO BEDTIME PRN PRN Reason: Insomnia Multivitamins/Vitamin C (Multivitamin Tablet) 1 tab PO DAILY [facility] Stop: 07/16/25 08:59 Last Admin: 07/15/25 07:43 Dose: 1 tab Documented By: ISABEL Ondansetron HCl (Ondansetron Hcl 4 Mg/2 Ml Vial) 4 mg IVPUSH Q8H PRN PRN Reason: Nausea and Vomiting Last Admin: 07/13/25 18:39 Dose: 4 mg Documented By: PHARAFATYM Polyethylene Glycol (Polyethylene Glycol 3350 17 Gm Powd.Pack) 17 gm PO DAILY PRN PRN Reason: Constipation Sodium Chloride (0.9 % Sodium Chloride Flush 3 Ml Syringe) [facility] Last Admin: 07/15/25 16:41 Dose: 3 ml Documented By: ISABEL Thiamine HCl (Thiamine Hcl 100 Mg Tablet) 100 mg PO DAILY [facility] Stop: 07/16/25 08:59 Last Admin: 07/15/25 07:44 Dose: 100 mg Documented By: ISABEL Labs 07/14/25 10:11 07/14/25 10:11 Microbiology Microbiology Results: Microbiology 07/13/25 02:48 Blood Culture - Preliminary Blood - Venous No growth after 48 hours. 07/13/25 02:48 Blood Culture - Preliminary Blood - Venous No growth after 48 hours. Assessment and Plan (1) Pneumonia: Status: Acute (2) Hypoxia: Status: Acute Plan 55-year-old male with a past medical history of alcohol use disorder, liver cirrhosis, GERD, chronic thrombocytopenia, homeless; presented to the hospital with a chief complaint of alcohol intoxication. Admitted for following Acute hypoxic respiratory failure: Pneumonia: Suspected aspiration Patient currently on supplemental oxygen at 2L which is better Continue ceftriaxone and doxycycline--seems to be responding to this Follow-up cultures Trending pulse oximetry Sujey colunga [employer]ICE PRESIDENT [employer]END[employer] recommends regular diet CT showed: No pulmonary embolus. Cardiomegaly and diffuse ground-glass opacity in the right lower lobe, left upper lobe, and left lower lobe, likely vascular congestion in the setting of CHF. but BNP is only 100 Stop IVF, po lasix 40 mg daily, dc IV lasix today Liver cirrhosis: Chronic thrombocytopenia: Patient is on Lasix at home-noncompliant. Alcohol use disorder: monitor on CIWA protocol with Ativan. Thiamine folate and multivitamins. 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 GERD: Pepcid Code status: Full code DVT prophylaxis: SCD boots OMN: hypoxia Pulse ox with ambulation, iv Abx Quality Stroke Does the patient have a stroke diagnosis?: No VTE Prior VTE?: No VTE Risk Level:: Medical - moderate - high VTE Device Contraindication: Treatment Not Indicated VTE Drug Contraindication: N/A - Med Ordered
[2025-07-16] MEDS: 0.9 % Sodium Chloride Flush 3 ML SYRINGE IVFLUSH ×2 (00:59→07:36)
[2025-07-16 03:35] VITALS: BP 94/56; PULSE 71; RESP 18; TEMP 37.3; O2SAT 93
[2025-07-16 07:26] VITALS: BP 102/57; PULSE 68; RESP 20; TEMP 36.9; O2SAT 97
[2025-07-16 08:20] LABS: Alanine Aminotransferase 6 U/L (0-40); Albumin Level 3.1 g/dL (3.5-5.0); Alkaline Phosphatase 143 U/L (39-117); Anion Gap 12 (12-20); Aspartate Amino Transferase 33 U/L (5-37); Blood Urea Nitrogen 17 mg/dL (9-16); Calcium 7.8 mg/dL (8.4-10.2); Carbon Dioxide 25 mmol/L (22-29); Chloride 104 mmol/L (96-108); Creatinine Clr Calc Pharmacy 86.0; Estimated Glomerular Filt Rate > 60; Potassium 3.3 mmol/L (3.3-5.1); Sodium 138 mmol/L (135-145); Total Protein 7.2 g/dL (6.5-8.0)
[2025-07-16 11:02] VITALS: BP 102/54; PULSE 80; RESP 16; TEMP 36.9; O2SAT 96
--- NOTE | 2025-07-16 12:40 | P.DS_ITS ---
DS: Providers Provider Date of Service: 07/16/25 Date of admission: 07/13/25 04:12 Date of discharge: 07/16/25 Primary care physician: [facility] DS: Diagnosis Discharge Diagnosis (1) Pneumonia: Status: Acute (2) Hypoxia: Status: Acute DS: Summary Hospital Course Hospital Course: History and physical as per admitting provider. 55-year-old male with a past medical history of alcohol use disorder, liver cirrhosis, GERD, chronic thrombocytopenia, homeless; presented to the hospital with a chief complaint of alcohol intoxication. Patient was found outside the liquor store [facility]; subsequently EMS was called in. EMS noted that patient was hypoxic to 70s. Placed on supplemental oxygen and brought him to the ER. In the ER patient was noted to be hypoxic to mid 80s and placed on supplemental oxygen.Patient is lying in the bed comfortable. Denies any cough or shortness of breath. Denies any chest pain or palpitations. Review of all other systems is limited. ER course: Per ER team, patient presented earlier in the day and was intoxicated; and was also hypoxic; but later patient started to be have inappropriate to the team and subsequently left the ER. And later he was found on the bench in front of the liquor store and came back to the hospital being hypoxic. Chest x-ray showed atypical pneumonia. Given antibiotics. CT chest ordered Acute hypoxic respiratory failure: Pneumonia: Suspected aspiration, treated with ceftriaxone and doxycycline, blood cultures negative, treated with DuoNebs, therapeutic oxygen. Plan will be to discharge with a few more days of Levaquin. Liver cirrhosis:Chronic thrombocytopenia: Patient is on Lasix at home- noncompliant. Alcohol use disorder: monitor on CIWA protocol with Ativan. Thiamine folate and multivitamins. 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 store in [place], he declined a intermediate placement Time Attestation Discharge Coordination Time (in mins): 40 Quality: Safe Use of Opioids Does Pt have an Active Cancer Diagnosis on the Problem List?: No Quality: Stroke Does the patient have a stroke diagnosis?: No Physical Exam Exam: Exam: Appearing in no acute distress head is normocephalic atraumatic eyes pupils are PERRLA sclera is anicteric mouth throat mucous membranes are intact and moist neck is supple no lymphadenopathy, no JVD noted lung sounds are clear to auscultation heart regular rate rhythm, clear S1, S2 positive bowel sounds, abdomen is soft, nontender neuro patient is alert x3, no focal deficits Vital Signs: Vital Signs: Last Vital Signs Temp 98.4 F 07/16/25 11:02 Pulse 80 07/16/25 11:02 Resp 16 07/16/25 11:02 BP 102/54 L 07/16/25 11:02 Pulse Ox 96 07/16/25 11:02 O2 Del Method Room Air 07/16/25 11:02 O2 Flow Rate 2 07/16/25 07:26 Oxygen Flow Rate 4 07/12/25 21:39 BMI result Body Mass Index 21.8 DS: Data Data Completed and Pending Completed studies during hospitalization [Text1]: Procedures Control Bleeding in Gastrointestinal Tract, Via Natural or Artificial Opening Endoscopic (08/29/23) Control Bleeding in Nasal Mucosa and Soft Tissue, Via Natural or Artificial Opening (11/29/24) Detoxification Services for Substance Abuse Treatment (06/19/25) Drainage of Peritoneal Cavity, Percutaneous Approach (10/21/24) Excision of Ascending Colon, Via Natural or Artificial Opening Endoscopic, Diagnostic (08/03/23) Excision of Descending Colon, Via Natural or Artificial Opening Endoscopic, Diagnostic (08/03/23) Insertion of Infusion Device into Upper Vein, Percutaneous Approach (08/29/23) Introduction of Mineral-based Topical Hemostatic Agent into Lower GI, Via Natural or Artificial Opening Endoscopic, [employer] (08/03/23) Introduction of Mineral-based Topical Hemostatic Agent into Upper GI, Via Natural or Artificial Opening Endoscopic, [employer] (08/29/23) Occlusion of Esophageal Vein with Extraluminal Device, Via Natural or Artificial Opening Endoscopic (11/29/24) Occlusion of Esophageal Vein, Via Natural or Artificial Opening Endoscopic (01/22/24) Transfusion of Nonautologous Plasma Cryoprecipitate into Peripheral Vein, Percutaneous Approach (08/03/23) Transfusion of Nonautologous Platelets into Peripheral Vein, Percutaneous Approach (11/29/24) Transfusion of Nonautologous Red Blood Cells into Peripheral Vein, Percutaneous Approach (11/29/24) Labs on day of discharge: Laboratory Results - last 24 hr 07/16/25 07:08 Hold Purple Top SEE NOTE Sodium 138 Potassium 3.3 Chloride 104 Carbon Dioxide 25 Anion Gap 12 BUN 17 H Creatinine 0.78 Estim Creat Clear Calc 86.0 Estimated GFR > 60 Random Glucose 86 Calcium 7.8 L Total Bilirubin 0.9 AST 33 ALT 6 Alkaline Phosphatase 143 H Total Protein 7.2 Albumin 3.1 L Preliminary micro results at discharge 07/13/25 02:48 Blood Culture - Preliminary Blood - Venous No growth after 48 hours. 07/13/25 02:48 Blood Culture - Preliminary Blood - Venous No growth after 48 hours. Discharge Plan Discharge Anticipated Discharge Date/Time: 07/16/25 12:34 Patient Disposition: Xfer Other Discharge Diagnosis: Acute hypoxic respiratory failure Pneumonia Liver cirrhosis Alcohol use Referrals: [facility] [Primary Care Provider, Medical] - 1 Week Discharge Medications: New levofloxacin 500 mg tablet 500 mg PO DAILY Qty: 2 0RF furosemide [Lasix] 40 mg tablet 40 mg PO DAILY Qty: 30 0RF Discharge Orders: Discharge Order (Routine); Ordered 07/16/25 Ordered By: Massiel Fall Diet: Advance to usual diet Activity on Discharge: As tolerated Stand Alone Forms: Patient Portal Discharge page Print Language: Lithuanian Care Plan Goals: Do not drink alcohol, seek outpatient assistance with this Health Concerns: Acute hypoxic respiratory failure Pneumonia Liver cirrhosis Alcohol use Plan of Treatment: Follow up with primary care provider as needed Take all medications as prescribed Assessment: See discharge summary
== END 2025-07-16 13:38 | disposition other institution (70) | DRG 137 ==
LOC: HO.ED 07-13 01:12 → HO.EDOVER 07-13 04:21 → HO.IMC 07-13 13:27 → HO.S3 07-16 10:47
PROVIDERS: Hospitalist; Internal Medicine; Physician Assistant Medical; Admitting Provider Hospitalist; Emergency Provider Emergency Medicine; PCP Internal Medicine; Visit Provider Nurse Practitioner Acute Care
DX: J69.0 Pneumonitis due to inhalation of food and vomit (principal); J96.01 Acute respiratory failure with hypoxia; D61.818 Other pancytopenia; K21.9 Gastro-esophageal reflux disease without esophagitis; K70.30 Alcoholic cirrhosis of liver without ascites; F10.229 Alcohol dependence with intoxication, unspecified; Z91.148 Patient's other noncompliance with medication regimen for other reason; Z59.02 Unsheltered homelessness; Z79.899 Other long term (current) drug therapy
CPT/HCPCS: 36415; 71275; 80048; 80053; 83605; 83880; 85025; 85027; 87040; 92610; 99285; J0696; J1271; J1938; J2405; J7120; Q9967

== ENCOUNTER → 2025-07-13 03:36 | Outpatient (BNV) | payer MEDICAID, SELFPAY | PROVIDERS: Admitting Provider Hospitalist; Emergency Provider Emergency Medicine; Visit Provider Student in an Organized Health Care Education/Training Program | DX: R09.02 Hypoxemia (principal) | CPT/HCPCS: 71275 ==

== ENCOUNTER → 2025-07-13 04:12 | Outpatient (BNV) | payer MEDICAID, SELFPAY | PROVIDERS: Admitting Provider Hospitalist; Emergency Provider Emergency Medicine; Visit Provider Hospitalist | DX: J18.9 Pneumonia, unspecified organism (principal); R09.02 Hypoxemia | CPT/HCPCS: 99223; 99232; 99239; 99499 ==

== ENCOUNTER 2025-07-18 02:25 | Emergency (ER) | payer MEDICAID, SELFPAY ==
[2025-07-18 02:22] VITALS: BP 102/58; PULSE 79; O2SAT 95
[2025-07-18 02:28] VITALS: BMI 20.7
[2025-07-18 02:36] VITALS: BP 96/55; PULSE 66; RESP 16; TEMP 36.3; O2SAT 98
--- OUTSIDE RECORDS SUMMARY | 2025-07-18 03:08 | XMS_ITS | Encounter Summary ---
Author Organization [facility] Address [address] [place] [id number] Phone Care Team Providers Care Able Bodied Seaman Name Role Phone Elbert Hayward MD Primary Care Provider [facility], [facility] Primary Care Provider Pcp, Unknown Unavailable Unavailable Encounter Details Date Type Department Care Team (Late st Contact Info) Description 10/06/2023 Procedure [facility], Ct Scan - [address] [id number] Social History Tobacco Use Types Packs/Day Years [...] on filedocumented in this encounter Care Teams Able Bodied Seaman Relationship Specialty Start Date End Date Elbert Hayward MD PCP - General 05/13/14 10/06/23 [facility], MD [address] [place] [address] PCP - General 10/07/23 Pcp, Unknown 10/07/23 documented as of this encounter Additional Source Comments The information contained in this document represents components of the legal health record. It is not the complete legal health record.[facility]
--- OUTSIDE RECORDS SUMMARY | 2025-07-18 03:08 | XMS_ITS | Clinical Summary ---
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 Role Phone Missy Milner RN Unavailable [phone] Young Conor Unavailable Allergies No known active [...] Patient presented with altered mental status from [facility] where he appeared more lethargic [...] Department Care Team Description 07/08/2025 Patient Outreach [facility] [address] [place], [place] [phone] Missy Milner, LAURA 07/07/2025 Telephone [facility] [address] [place] [address] Mihaela Zhong RN 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 07/06/2025 Orders Only GENERIC EXTERNAL DATA DEPARTMENT Provider, Generic External Data 07/02/2025 Orders Only [facility] External Provider, [facility] 07/01/2025 Patient Outreach [facility] [address] [place] [address] Missy Milner, LAURA Care Coordination (C3[facility]/CHW Conor Vidal, TC #5 initial outreach attempt_lvm) 06/19/2025 Results Follow-Up [facility] Information Management [address] [place] [address] Provider, Generic External Data XR Chest 2 Views 06/19/2025 Results Follow-Up [facility] Information Management [address] [place] [address] External Provider, [facility] CT Chest w/ Contrast 06/19/2025 Orders Only [facility] External Provider, [facility] 06/18/2025 Orders Only GENERIC EXTERNAL DATA DEPARTMENT Provider, Generic External Data 06/11/2025 Travel 06/09/2025 Results Follow-Up [facility] Information [facility] [address] [place] [address] Provider, Generic External Data XR Chest 1 View 06/08/2025 Orders Only GENERIC EXTERNAL DATA DEPARTMENT Provider, Generic External Data 06/05/2025 Orders Only GENERIC EXTERNAL DATA DEPARTMENT Provider, Generic External Data 05/30/2025 Patient Outreach [facility] [address] [place] [phone] Missy Milner, LAURA Care Coordination ([facility]/W Conor Vidal, TC #4 Initial outreach attempt_lvm ) 05/23/2025 Orders Only GENERIC EXTERNAL DATA DEPARTMENT Provider, Generic External Data 05/21/2025 Orders Only GENERIC EXTERNAL DATA DEPARTMENT Provider, Generic External Data 05/19/2025 Patient Outreach [facility] PED[facility] [address] [place] [address] Missy Milner RN 05/13/2025 Orders Only [facility] External Provider, [facility] 05/09/2025 Patient Outreach [facility] [address] [place] [address] Missy Milner RN 05/08/2025 1:00 PM EDT Office Visit [facility] WALK-IN [address] [address] Karely Guerra MD 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 Please make this patient a high priority.); NEW PATIENT AAPT REQUEST 05/08/2025 Travel 05/05/2025 Orders Only GENERIC EXTERNAL DATA DEPARTMENT Provider, Generic External Data 05/02/2025 Patient Outreach [facility] [address] [place] [address] Missy Milner RN 05/02/2025 Patient Outreach [facility] [address] [place] [address] Missy Milner RN 05/02/[address] [address] Misti Murry MD NEW PT APPT 05/02/2025 Patient Outreach [address] [address] Misti Murry MD Care Coordination ([facility] Conor Vidal, TC #3 initial outreach attempt, appt reminder_lvm) 04/30/[address] [address] Misti Murry MD CHART PREP 04/30/2025 Orders Only GENERIC EXTERNAL DATA DEPARTMENT Provider, Generic External Data 04/28/2025 Patient Outreach [address] [address] Misti Murry MD Care Coordination ([facility] Conor Vidal, TC #2 initial outreach attempt_lvm ) 04/24/2025 Patient Outreach [address] [address] Misti Murry MD 04/23/2025 Results Follow-Up [address] [address] Misti Murry MD XR Chest 2 Views 04/23/2025 Patient Outreach [address] [address] Misti Murry MD Pre-visit Planning ((Unable to reach for PVP screening, LVM) to be completed in office) 04/23/2025 Patient Outreach [address] [address] Misti Murry MD Care Coordination ([facility] Conor Vidal, Initial outreach attempt_lvm ) 04/23/2025 Patient Outreach [address] [address] Misti Murry MD Care Coordination ([facility] Conor Vidal, Chart review ) 04/23/2025 Patient Outreach [facility] [address] [place] [address] Misti Murry MD Care Coordination ([facility] chart review) 04/23/2025 Patient Outreach [address] [address] Misti Murry MD 04/22/2025 Telephone [facility] [address] [place] [address] Chinedu Brenner MD 04/21/2025 Telephone [facility] [address] [place] [address] Chinedu Brenner MD 04/19/2025 Orders Only [facility] External Provider, [facility] from Last 3 Months Immunizations Immunization Administration [...] of 2) 2019 COVID-19 Vaccine (4 - 2024-2 6 season) 2025 11/23/2022, 04/28/2021, 04/28/2021 Influenza Vaccine (#1) 2025 [...] PM EDT Narrative 07/06/2025 7:18 PM EDT [address] [address] XRay Report Signed Patient: Charbel Delgado MR#: [id number] : 1970 Acct:[id number] Age/Sex: 55 / M ADM Date: 07/06/25 Loc: HO.ED Attending Dr: Ordering Physician: Maryann Cee Date of Service: 07/06/25 Procedure(s): XR chest 1V Accession Number(s): [id number] cc: [facility]; Maryann Cee CLINICAL HISTORY: hypoxia 1 [...] in OV> 07/06/251916 DD/ 15 TD/TT: 07/06/251915 Felt Carbonizer: Procedure Note Donotuseinterpreter, Image - 07/06/[address] [address] XRay Report Signed Patient: Isaias Delgado#: [id number] : 1970Acct:[id number] Age/Sex: 55 / MADM Date: 07/06/25 Loc: .ED Attending Dr: Ordering Physician: Maryann Cee Date of Service: 07/06/25 Procedure(s): XR chest 1V Accession Number(s): [id number] cc: [facility]; Maryann Cee CLINICAL HISTORY: hypoxia 1 [...] in OV> 07/06/251916 DD/ 15 TD/TT: 07/06/251915 Felt Carbonizer: [facility] External Provider IMG XR PROCEDURES Edited Result - Final * (ABNORMAL) Drug Monitoring, Panel 1, Screen, Urine (07/06/2025 6:08 PM EDT) Only the most recent of3 resultswithin the time period is included. Opiate Screen Urine Not Detected Not Detect [facility] Comment:Opiate cut-off is 30 0 ng/mL.Positive results are unconfirmed and should not be used fornon-medical purposes. Barbiturates, Urine POSITIVE(A) Not Detect [facility] Comment:Barbiturate cut-off is 200 ng/mL.Positive results are unconfirmed and should not be used fornon-medical purposes. Phencyclidine Screen Urine Not Detected Not Detect [facility] Comment:Phencyclidine cut-of f is 25 ng/mL.Positive results are unconfirmed and should not be used fornon-medical purposes. Amphetamine Screen Urine Not Detected Not Detect [facility] Comment:Amphetamine cut-off is 1000 ng/mL.Positive results are unconfirmed and should not be used fornon-medical purposes. Benzodiazepines Screen Urine Not Detected Not Detect [facility] Comment:Benzodiazepine cut-o ff is 200 ng/mL.Positive results are unconfirmed and should not be used fornon-medical purposes. Cocaine Screen Urine Not Detected Not Detect [facility] Comment:Cocaine cut-off is 3 00 ng/mL.Positive results are unconfirmed and should not be used fornon-medical purposes. Cannabinoid Screen Urine Not Detected Not Detect [facility] Comment:Cannabinoid cut-off is 50 ng/mL.Positive results are unconfirmed and should not be used fornon-medical purposes. Methadone Screen, Urine Not Detected Not Detect ng/mL [facility] Comment:Methadone cut-off is 300 ng/mL.Positive results are unconfirmed and should not be used fornon-medical purposes. FENTANYL URINE Not Detected Not Detect [facility] Comment:Fentanyl cut-off is 1 ng/mL.Positive results are unconfirmed and should not be used fornon-medical purposes. Oxycodone Urine Screen Not Detected Not Detect ng/mL [facility] Comment:Oxycodone cut-off is 100 ng/mL.Positive results are unconfirmed and should not be used fornon-medical purposes. Buprenorphine Screen Not Detected Not Detect ng/mL [facility] Comment:Buprenorphine cut-of f is 5 ng/mL.Positive results are unconfirmed and should not be used fornon-medical purposes. 07/06/2025 6:08 PM EDT 07/06/2025 6:11 PM EDT Generic External Data Provider LAB URINE ORDERAB LES Final Result Performing Organization Address [facility] Co de Phone Number [facility] [address] [place] [phone] * High Sensitivity Troponin I (07/06/2025 5:58 PM EDT) Only the most recent of6 resultswithin the time period is included. TROPONIN I HIGH SENSITIVITY <2.7 <3.5 - 35.0 ng/L [facility] Comment:The Connolly high sens itivity Troponin-I results should beused in conjunction with other diagnostic information suchas ECG, clinical observations and information, and patientsymptoms to aid in the diagnosis of SC. 07/06/2025 5:58 PM EDT 07/06/2025 6:06 PM EDT Generic External Data Provider LAB BLOOD ORDERAB LES Final Result Performing Organization Address [facility] Co de Phone Number [facility] [address] [place] [phone] * (ABNORMAL) Ethanol (07/06/2025 5:58 PM EDT) Only the most recent of5 resultswithin the time period is included. ETHANOL (MG/DL) IN SER/PLAS 399(HH) mg/dL [facility] Comment:Serum/plasma ethanol results are to be used formedical/treatment purposes only. 07/06/2025 5:58 PM EDT 07/06/2025 6:06 PM EDT us Generic External Data Provider LAB BLOOD ORDERAB LES Final Result [facility] [address] [place] [address] [phone] * (ABNORMAL) CBC auto differential (07/06/2025 5:58 PM EDT) Only the most recent of7 resultswithin the time period is included. White Blood Count 3.8(L) 4.8 - 10.8 X10*3/uL [facility] Red Blood Count 3.19(L) 4.60 - 5.80 X10*6/uL [facility] Hemoglobin 9.9(L) 14.0 - 18.0 g/dl [facility] Hematocrit 29.9(L) 42.0 - 52.0 % [facility] Mean Corpuscular Volume 93.7 80.0 - 98.0 fL [facility] Mean Corpuscular Hemoglobin 31.0 27.0 - 33.0 pg [facility] Mean Corpuscular HGB Conc 33.1 31.0 - 36.0 g/dl [facility] Red Cell Distribution Width 17.9(H) 11.0 - 16.0 % [facility] Platelet Count 60(L) 160 - 400 X10*3/uL [facility] Mean Platelet Volume 11.8 9.4 - 12.4 fL [facility] Neutrophils Percent Auto 55.0 45 - 73 % [facility] Imm Gran Pct Auto 0.5(H) 0.0 - 0.4 % [facility] Lymphocytes Percent Auto 30.6 20 - 40 % [facility] Monocytes Percent Auto 8.8 2 - 11 % [facility] Eosinophils Percent Auto 3.5 0 - 4 % [facility] Basophils Percent Auto 1.6 0 - 2 % [facility] NRBC Pct Auto 0.0 0.0 - 0.2 /100WBC [facility] Neutrophils Absolute Auto 2.1 2.0 - 8.3 x10*3/uL [facility] Imm Gran Abs Auto 0.02 0.00 - 0.03 X10*3/uL [facility] Lymphocytes Absolute Auto 1.2 1.2 - 4.9 X10*3/uL [facility] Monocytes Absolute Auto 0.3 0.1 - 1.2 X10*3/uL [facility] Eosinophils Absolute Auto 0.1 0.0 - 0.4 X10*3/uL [facility] Basophils Absolute Auto 0.1 0.0 - 0.2 X10*3/uL [facility] NRBC Abs Auto 0.000 0.0 - 0.012 X10*3/uL [facility] 07/06/2025 5:58 PM EDT 07/06/2025 6:06 PM EDT us Generic External Data Provider LAB BLOOD ORDERAB LES Final Result Performing Organization Address City/[facility]/ZIP Co de Phone Number [facility] [address] [place] [phone] * B Type Natriuretic Peptide (BNP) (07/06/2025 5:58 PM EDT) Only the most recent of6 resultswithin the time period is included. B Type Natriuretic Peptide 100 <100 pg/mL [facility] 07/06/2025 5:58 PM EDT 07/06/2025 6:06 PM EDT us Generic External Data Provider LAB BLOOD ORDERAB LES Final Result Performing Organization Address City/[facility]/ZIP Co de Phone Number [facility] [address] [place] [phone] * (ABNORMAL) Comprehensive Metabolic Panel (07/06/2025 5:58 PM EDT) Only the most recent of4 resultswithin the time period is included. Sodium 143 135 - 145 mmol/L [facility] Potassium 3.6 3.3 - 5.1 mmol/L [facility] Chloride 112(H) 96 - 108 mmol/L [facility] Carbon Dioxide 18(L) 22 - 29 mmol/L [facility] Anion Gap 17 12 - 20 [facility] Urea Nitrogen (BUN) 10 9 - 16 mg/dL [facility] Creatinine, Serum 0.95 0.5 - 1.4 mg/dL [facility] Creatinine Clr Calc Pharmacy 69.6 [facility] Comment:eGFR (calculated fro m the MDRD study equation) and eCrCl(calculated from the Cockcroft-Gault equation) are based ondifferent parameters and may not yield comparable results.If eCrCl result is absurd, please check patient'sheight/weight. Estimated Glomerular Filt Rate >60 [facility] Comment:Chronic Kidney Disea se: Estimated GFR < 60 mL/min/1.91e6Rpgsto Kidney Disease: Estimated GFR < 15 mL/min/1.73m2 Glucose 110 60 - 115 mg/dL [facility] Calcium 8.1(L) 8.4 - 10.2 mg/dL [facility] Bilirubin, Total 0.6 0.0 - 1.0 mg/dL [facility] Aspartate Amino Transferase 51(H) 5 - 37 U/L [facility] Alanine Aminotransferase 11 0 - 40 U/L [facility] Total Protein 8.0 6.5 - 8.0 g/dL [facility] Albumin Level 3.5 3.5 - 5.0 g/dL [facility] Alkaline Phosphatase 158(H) 39 - 117 U/L [facility] 07/06/2025 5:58 PM EDT 07/06/2025 6:06 PM EDT us Generic External Data Provider LAB BLOOD ORDERAB LES Final Result [facility] [address] [place] [address] [phone] * CT Chest w/ Contrast (06/19/2025 4:46 AM EDT) Anatomical Region Laterality Modality Body, Chest Computed Tomogra phy 06/19/2025 4:46 AM EDT Narrative 06/19/2025 4:48 AM EDT [address] [address] [address] Scan Report Signed Patient: Charbel Delgado MR#: [id number] : 1970 Acct:[id number] Age/Sex: 55 / M ADM Date: 06/19/25 Loc: [facility]: Mercedes Hogan MD Ordering Physician: David Galvez PA-C Date of Service: 06/19/25 Procedure(s): CT chest w IV con Accession Number(s): [id number] cc: [facility]; David Galvez PA-C Report Number: [id number]: Total DLP = 265.00 mGy-cm CLINICAL HISTORY: [...] in OV> 06/19/25446 DD/ 5 TD/TT: 06/19/25445 Felt Carbonizer: Procedure Note Donotuseinterpreter, Image - 06/19/[address] [place] [address] [address] Scan Report Signed Patient: Isaias Delgado#: [id number] : 1970Acct:[id number] Age/Sex: 55 / MADM Date: 06/19/25 Loc: [place] [address]: Mercedes Hogan MD Ordering Physician: David Galvez PA-C Date of Service: 06/19/25 Procedure(s): CT chest w IV con Accession Number(s): [id number] cc: [facility]; David Galvez PA-C Report Number: [id number]: Total DLP = 265.00 mGy-cm CLINICAL HISTORY: [...] in OV> 06/19/25446 DD/ 5 TD/TT: 06/19/25445 Felt Carbonizer: [facility] External Provider IMG CT PROCEDURES Edited Result - Final * Lactic Acid (06/18/2025 11:49 PM EDT) Lactic Acid 1.8 0.5 - 2.0 mmol/L [facility] 06/18/2025 11:4 9 PM EDT 06/19/2025 Generic External Data Provider LAB BLOOD ORDERAB LES Final Result [facility] [address] [place] [phone] * XR Chest 2 Views (06/18/2025 11:47 PM EDT) Only the most recent of5 resultswithin the time period is included. Anatomical Region Laterality Modality Chest Radiographic Lamar ging 06/18/2025 11:4 7 PM EDT Narrative 06/18/2025 11:48 PM EDT [address] [address] XRay Report Signed Patient: Charbel Delgado MR#: [id number] : 1970 Acct:[id number] Age/Sex: 55 / M ADM Date: 06/18/25 Loc: .ED Attending Dr: Ordering Physician: David Galvez PA-C Date of Service: 06/18/25 Procedure(s): XR chest 2V Accession Number(s): [id number] cc: [facility]; David Galvez PA-C CLINICAL HISTORY: Hypoxia [...] in OV> 06/18/252347 DD/ 46 TD/TT: 06/18/252346 Felt Carbonizer: Procedure Note Donotuseinterpreter, Image - 06/19/2025 [place] [address] XRay Report Signed Patient: Isaias Delgado#: [id number] : 1970Acct:[id number] Age/Sex: 55 / MADM Date: 06/18/25 Loc: .ED Attending Dr: Ordering Physician: David Galvez PA-C Date of Service: 06/18/25 Procedure(s): XR chest 2V Accession Number(s): [id number] cc: [facility]; David Galvez PA-C CLINICAL HISTORY: Hypoxia [...] in OV> 06/18/252347 DD/ 46 TD/TT: 06/18/252346 Felt Carbonizer: [facility] External Provider IMG XR PROCEDURES Edited Result - Final * Slide Review (06/18/2025 9:19 PM EDT) Slide Review VERIFIED [facility] 06/18/2025 9:19 PM EDT 06/18/2025 9:27 PM EDT Generic External Data Provider LAB BLOOD ORDERAB LES Final Result Performing Organization Address City/[facility]/ZIP Co de Phone Number [facility] [address] [place] [phone] * Magnesium (06/18/2025 9:19 PM EDT) Only the most recent of5 resultswithin the time period is included. Magnesium 1.6 1.6 - 2.6 mg/dL [facility] 06/18/2025 9:19 PM EDT 06/18/2025 9:27 PM EDT Generic External Data Provider LAB BLOOD ORDERAB LES Final Result Performing Organization Address City/[facility]/ZIP Co de Phone Number [facility] [address] [place] [phone] [phone] * (ABNORMAL) Lactic Acid (06/18/2025 9:19 PM EDT) Lactic Acid 2.4(HH) 0.5 - 2.0 mmol/L [facility] Comment:Critical value for t est(s): LACTA Results called to gildardo back by: PATRICIA Person calling: [email or web address] Date: 06/18/25Time:2154 06/18/2025 9:19 PM EDT 06/18/2025 9:27 PM EDT Generic External Data Provider LAB BLOOD ORDERAB LES Final Result Performing Organization Address [facility] Co de Phone Number [facility] [address] [place] [phone] * SARS-CoV-2 RNA, Influenza A/B, and RSV RNA, Ql NAAT (06/08/2025 5:01 PM EDT) Only the most recent of2 resultswithin the time period is included. Influenza A PCR NEGATIVE Negative [facility] Influenza B PCR NEGATIVE Negative [facility] Resp Syncy Virus RNA Qual PCR NEGATIVE Negative [facility] SARS COV2 PCR NEGATIVE Negative [facility] Comment:All test results mus [...] use by authorized laboratories.Testing performed on the Glarity GeneXpert utilizingreal-time RT-PCR.All SARS CoV2 and positive influenza A/B results arereported to [facility]. 06/08/2025 5:01 PM EDT 06/08/2025 5:07 PM EDT Generic External Data Provider LAB MICROBIOLOGY - GENERAL ORDERABLES Final Result Performing Organization Address [facility] Co de Phone Number [facility] [address] [place] [phone] * (ABNORMAL) Hepatic Function Panel (06/08/2025 5:01 PM EDT) Only the most recent of4 resultswithin the time period is included. Bilirubin, Total 0.7 0.0 - 1.0 mg/dL [facility] Bilirubin, Direct 0.4 0.0 - 0.5 mg/dL [facility] Aspartate Amino Transferase 66(H) 5 - 37 U/L [facility] Alanine Aminotransferase 15 0 - 40 U/L [facility] Total Protein 7.8 6.5 - 8.0 g/dL [facility] Albumin Level 3.5 3.5 - 5.0 g/dL [facility] Alkaline Phosphatase 133(H) 39 - 117 U/L [facility] 06/08/2025 5:01 PM EDT 06/08/2025 5:05 PM EDT us Generic External Data Provider LAB BLOOD ORDERAB LES Final Result [facility] [address] [place] [phone] * (ABNORMAL) Basic Metabolic Panel (06/08/2025 5:01 PM EDT) Only the most recent of3 resultswithin the time period is included. Pathologist [facility] Sodium 144 135 - 145 mmol/L [facility] Potassium 3.4 3.3 - 5.1 mmol/L [facility] Chloride 114(H) 96 - 108 mmol/L [facility] Carbon Dioxide 20(L) 22 - 29 mmol/L [facility] Anion Gap 13 12 - 20 [facility] Urea Nitrogen (BUN) 9 9 - 16 mg/dL [facility] Creatinine, Serum 0.66 0.5 - 1.4 mg/dL [facility] Creatinine Clr Calc Pharmacy 100.2 [facility] Comment:eGFR (calculated fro m the MDRD study equation) and eCrCl(calculated from the Cockcroft-Gault equation) are based ondifferent parameters and may not yield comparable results.If eCrCl result is absurd, please check patient'sheight/weight. Estimated Glomerular Filt Rate >60 [facility] Comment:Chronic Kidney Disea se: Estimated GFR < 60 mL/min/1.22j5Gfidrq Kidney Disease: Estimated GFR < 15 mL/min/1.73m2 Glucose 92 60 - 115 mg/dL [facility] Calcium 8.2(L) 8.4 - 10.2 mg/dL [facility] 06/08/2025 5:01 PM EDT 06/08/2025 5:05 PM EDT us Generic External Data Provider LAB BLOOD ORDERAB LES Final Result Performing Organization Address City/[facility] Co de Phone Number [facility] [address] [place] [phone] [phone] * (ABNORMAL) VENOUS BLOOD GAS (06/05/2025 11:59 AM EDT) VBG pH 7.41 7.32 - 7.43 [facility] Comment:METER #: [id number] additional_comment: Cbnievea VBG PCO2 29 mmHg [facility] Comment:METER #: [id number] additional_comment: Cbnievea VBG PO2 109 mmHg [facility] Comment:METER #: [id number] additional_comment: Cbnievea VBG Base Excess -4.5 mmol/L [facility] Comment:METER #: [id number] additional_comment: Cbnievea VBG HCO3 19(L) 22 - 26 mmol/L [facility] Comment:METER #: [id number] additional_comment: Cbnievea O2 Sat, Demetrio 99.0 % [facility] Comment:METER #: [id number] additional_comment: Cbnievea 06/05/2025 11:5 9 AM EDT 06/05/2025 12:03 PM EDT us Generic External Data Provider LAB BLOOD ORDERAB LES Final Result Performing Organization Address City/State/[facility] Co de Phone Number [facility] [address] [place] [phone] * (ABNORMAL) Creatine Kinase, Total (06/05/2025 11:54 AM EDT) Only the most recent of2 resultswithin the time period is included. Creatine Kinase Total 34(L) 38 - 174 U/L [facility] 06/05/2025 11:5 4 AM EDT 06/05/2025 11:57 AM EDT us Generic External Data Provider LAB BLOOD ORDERAB LES Final Result Performing Organization Address [facility] Co de Phone Number [facility] [address] [place] [phone] * VASC US Lower Extremity Venous Duplex Bilateral (05/23/2025 7:11 PM EDT) 05/23/2025 7:11 PM EDT Narrative [facility] - 05/23/2025 7:12 PM EDT [address] [address] Ultrasound Report Signed Patient: Charbel Delgado MR#: [id number] : 1970 Acct:[id number] Age/Sex: 55 / M ADM Date: 05/23/25 Loc: .ED Attending Dr: Ordering Physician: Dexter Foster Date of Service: 05/23/25 Procedure(s): US venous duplex LE BI Accession Number(s): [id number] cc: Dexter Foster; [facility] CLINICAL HISTORY: bilateral leg swelling Venous [...] in OV> 05/23/251910 DD/ 10 TD/TT: 05/23/251910 Felt Carbonizer: Procedure Note Maikfernandopatrick, Image - 05/23/[address] [address] Ultrasound Report Signed Patient: Isaias Delgado#: [id number] : 1970Acct:[id number] Age/Sex: 55 / MADM Date: 05/23/25 Loc: HO.ED Attending Dr: Ordering Physician: Dexter Foster Date of Service: 05/23/25 Procedure(s): US venous duplex LE BI Accession Number(s): [id number] cc: Dexter Foster; [facility] CLINICAL HISTORY: bilateral leg swelling Venous [...] in OV> 05/23/251910 DD/ 10 TD/TT: 05/23/251910 Felt Carbonizer: us [facility] External Provider CV VASC ULAR PROCEDURES Final Result [facility] [address] [place] [phone] * Lipase (05/23/2025 1:50 PM EDT) Lipase 21 8 - 78 U/L [facility] 05/23/2025 1:50 PM EDT 05/23/2025 1:53 PM EDT Generic External Data Provider LAB BLOOD ORDERAB LES Final Result [facility] [address] [place] [phone] * US VENOUS DUPLEX LE LT (05/13/2025 10:50 PM EDT) Anatomical Region Laterality Modality Abdomen Ultrasound 05/13/2025 10:5 0 PM EDT Narrative 05/13/2025 10:51 PM EDT [place] [address] Ultrasound Report Signed Patient: Charbel Delgado MR#: [id number] : 1970 Acct:[id number] Age/Sex: 55 / M ADM Date: 05/13/25 Loc: HO.ED Attending Dr: Ordering Physician: David Galvez PA-C Date of Service: 05/13/25 Procedure(s): US venous duplex LE LT Accession Number(s): [id number] cc: [facility]; David Galvez PA-C CLINICAL HISTORY: Swelling; [...] in OV> 05/13/252250 DD/ 49 TD/TT: 05/13/252249 Felt Carbonizer: Procedure Note Donotuseinterpreter, Image - 05/13/[address] [address] Ultrasound Report Signed Patient: Rod DelgadoR#: [id number] : 1970Acct:[id number] Age/Sex: 55 / MADM Date: 05/13/25 Loc: HO.ED Attending Dr: Ordering Physician: David Galvez PA-C Date of Service: 05/13/25 Procedure(s): US venous duplex LE LT Accession Number(s): [id number] cc: [facility]; David Galvez PA-C CLINICAL HISTORY: Swelling; [...] in OV> 05/13/252250 DD/ 49 TD/TT: 05/13/252249 Felt Carbonizer: [facility] External Provider IMG US PROCEDURES Final Result * Blood Culture (First) (04/30/2025 9:19 AM EDT) Blood Venous blood specimen / Unknown 04/30/2025 9:19 AM EDT 04/30/2025 9:24 AM EDT Comment:Blood Narrative [facility] - 05/05/2025 11:24 AM EDT Blood Culture (First) No growth after 5 days. Specimen Source: Blood Generic External Data Provider LAB MICROBIOLOGY - GENERAL ORDERABLES Final Result Performing Organization Address [facility]/ZIP Co de Phone Number [facility] [address] [place] [phone] * Blood Culture (Second) (04/30/2025 9:19 AM EDT) Blood Venous blood specimen / Unknown 04/30/2025 9:19 AM EDT 04/30/2025 9:24 AM EDT Comment:Blood Narrative [facility] - 05/05/2025 11:24 AM EDT Blood Culture (Second) No growth after 5 days. Specimen Source: Blood Generic External Data Provider LAB MICROBIOLOGY - GENERAL ORDERABLES Final Result [facility] [address] [place] [phone] [phone] * (ABNORMAL) Sed Rate by Modified Matthewergren (04/30/2025 9:19 AM EDT) Erythrocyte Sedimentation Rate 26(H) 0 - 15 MM/HR [facility] Comment:Patients with polycy themia and many hemoglobin abnormalitiesmay have depressed sed rates whereas patients with anemiamay have elevated sed rates. 04/30/2025 9:19 AM EDT 04/30/2025 9:24 AM EDT Generic External Data Provider LAB BLOOD ORDERAB LES Final Result Performing Organization Address [facility] Co de Phone Number [facility] [address] [place] [address] [phone] * (ABNORMAL) Glucose, Whole Blood (04/19/2025 7:43 PM EDT) Glucose, Whole Blood 122(H) 60 - 115 mg/dL [facility] Comment:METER #: [id number] 04/19/2025 7:43 PM EDT 04/19/2025 7:47 PM EDT Generic External Data Provider LAB BLOOD ORDERAB LES Final Result Performing Organization Address City/[facility] Co de Phone Number [facility] [address] [place] [phone] [phone] from Last 3 Months Insurance HSN PARTIAL [facility] C3 Care Teams Snuff Packing Machine Operator Relationship Specialty Start Date End Date Missy Milner RN [address] [place] [phone] Registered Nurse Family Medicine 04/23/25 Conor Vidal 04/23/25
--- OUTSIDE RECORDS SUMMARY | 2025-07-18 03:08 | XMS_ITS | Encounter Summary ---
Author Organization [facility] Address [address] [facility] [address] [place] [phone] Phone Care Team Providers Care Crab Fisherman Name Role Phone [facility], [facility] Primary Care Provider Pcp, Unknown Unavailable Unavailable Encounter Details Date Type Department Care Team ([facility] st Contact Info) Description 10/31/2023 Procedure Pass [facility] Endoscopy Admitting Dept Virtual Department [address] [place] [phone] Social History Tobacco Use Types Packs/Day Years [...] on filedocumented in this encounter Care Teams Crab Fisherman Relationship Specialty Start Date End Date [facility] [address] [place] [address] PCP - General 10/07/23 Pcp, Unknown 10/07/23 documented as of this encounter Additional Source Comments The information contained in this document represents components of the legal health record. It is not the complete legal health record.[facility]
--- OUTSIDE RECORDS SUMMARY | 2025-07-18 03:08 | XMS_ITS | Encounter Summary ---
Author Organization [employer] Address [address] [place] [address] [place] [address] Care Team Providers Care Activities Counselor Name Role Phone Missy Milner RN Unavailable [phone] Conor Vidal Unavailable Encounter Details Date Type Department Care Team ([facility] st Contact Info) Description 06/19/2025 Results Follow-Up [facility] [address] [place] [address] Provider, Generic External Data XR Chest 2 [...] on filedocumented in this encounter Care Teams Activities Counselor Relationship Specialty Start Date End Date Missy Milner RN [address] [place] [address] Registered Nurse Family Medicine 04/23/25 Conor Vidal 04/23/25 documented as of this encounter
--- OUTSIDE RECORDS SUMMARY | 2025-07-18 03:08 | XMS_ITS | Encounter Summary ---
Author Organization [employer] Address [address] [place] [address] [place] [address] Care Team Providers Care Class C Driver Name Role Phone Missy Milner RN Unavailable [phone] Conor Vidal Unavailable Encounter Details Date Type Department Care Team ([facility] st Contact Info) Description 06/09/2025 Results Follow-Up [facility] [address] [place] [address] Provider, Generic External Data XR Chest 1 [...] on filedocumented in this encounter Care Teams Class C Driver Relationship Specialty Start Date End Date Missy Milner RN [address] [place] [address] Registered Nurse Family Medicine 04/23/25 Conor Vidal 04/23/25 documented as of this encounter
--- OUTSIDE RECORDS SUMMARY | 2025-07-18 03:09 | XMS_ITS | Clinical Summary ---
Author Organization [facility] Address [address] [place] [address] Phone Care Team Providers Care Shovel Log Loader Operator Name Role Phone [facility], Facility Primary Care Provider Pcp, Unknown [...] magnesia). Active monobasic and dibasic sodium phosphates (82172 ENEMA) 19-7 gram/[address] 1 [...] Patient presented with altered mental status from [facility] where he appeared more lethargic than [...] EST) SODIUM 137 133 - 146 mmol/L [facility] POTASSIUM 4.5 3.3 - 5.1 mmol/L [facility] CHLORIDE 105 96 - 108 mmol/L [facility] CO2 22 21 - 35 mmol/L [facility] BUN 14 6 - 19 mg/dL [facility] CREATININE 0.80 0.5 - 1.5 mg/dL [facility] GLUCOSE 104(H) 70 - 99 mg/dL [facility] ALBUMIN 4.1 3.9 - 4.8 g/dL [facility] TOTAL PROTEIN 8.1(H) 6.5 - 8.0 g/dL [facility] CALCIUM 10.4(H) 8.4 - 10.3 mg/dL [facility] ALKALINE PHOSPHATASE 118(H) 39 - 117 U/L [facility] TOTAL BILIRUBIN 0.6 0.0 - 1.2 mg/dL [facility] AST 25 0 - 37 U/L [facility] ALT 7 0 - 40 U/L [facility] GLOBULIN 4.0 1 - 4.8 g/dL [facility] EGFR 105 >59 mL/min/1.7 3m2 [facility] Comment:Estimated glomerular filtration rate calculated using the CKD-EPI refit equation. ANION GAP 15 10 - 20 mmol/L [facility] Blood 01/04/2024 9:22 AM EST 01/04/2024 9:53 AM EST Missy WALLACE LAB BLOOD ORDERABLES Fin al Result Performing Organization Address City/[facility]/ZIP Co de Phone Number [address] [address] * Hepatitis C antibody, qualitative (01/04/2024 9:22 AM EST) HCV NON-REACTIV E NON-REACTI VE [facility] Blood 01/04/2024 9:22 AM EST 01/04/2024 9:53 AM EST Missy WALLACE LAB BLOOD ORDERABLES Fin al Result Performing Organization Address [facility] Co de Phone Number [address] [phone] from Last 3 Months or Most Recently Relevant to Health Maintenance Insurance [facility] C3 ACO [facility] C3 ACO C3 ACO C3 ACO C3 [employer]CO [employer] [id number] [facility] C3 ACO [facility] C3 ACO Advance Directives For more information, please contact: [phone] (9AM - 5PM [facility], Monday-Monday) Documents on File Type Date Recorded Patient Hat Copyist Expl anation Healthcare Proxy 10/09/2023 10:49 AM [...] Agents on File Name Relationship Healthcare Agent Gaco danyell Lopez Guillermo Lobato .Primary Health Care Agent (Proxy form on file) Care Teams Shovel Log Loader Operator Relationship Specialty Start Date End Date [facility], Marya, [address] [place] [address] PCP - General 10/07/23 Pcp, Unknown 10/07/23 Additional Source Comments The information contained in this document represents components of the legal health record. It is not the complete legal health record.[facility]
--- OUTSIDE RECORDS SUMMARY | 2025-07-18 03:09 | XMS_ITS ---
Author Organization [employer] Address [address] [place] [address] 7[address] [place] [address] Care Team Providers Care Application Design Engineer Name Role Phone Missy Milner RN Unavailable [phone] Conor Vidal Unavailable CM Complex Status:Outreach In Progress (Enrolling) Start date:04/23/2025 Enrollment reason:ADT Feed Overview ADT-admitted [facility] 04/22/25 Case Team Name Relationship Phone Missy Milner RN(Responsible Staff) Registered Nurse [phone] Continued Care and Services Coordination
--- OUTSIDE RECORDS SUMMARY | 2025-07-18 03:09 | XMS_ITS ---
Author Organization [employer] Address [address] [place] [address] [address] [place] [address] Care Team Providers Care Dispenser Operator Name Role Phone Missy Milner RN Unavailable [phone] Conor Vidal Unavailable CHW Complex Status:Outreach In Progress (Enrolling) Start date:04/23/2025 Enrollment reason:ADT Feed Overview ADT-admitted [facility] 04/22/25 Case Team Name Relationship Phone Conor Vidal(Responsible Staff) [phone] Continued Care and Services Coordination
--- OUTSIDE RECORDS SUMMARY | 2025-07-18 03:09 | XMS_ITS | Encounter Summary ---
Author Organization [employer] Address [address] [place] [address] [place] [address] Care Team Providers Care Steam Press Operator Name Role Phone Missy Milner RN Unavailable [phone] Conor Vidal Unavailable Encounter Details Date Type Department Care Team (Latest Contact Info) Description 06/19/2025 Results Follow-Up [facility] [address] [place] [address] External Provider, [facility] CT Chest w/ Contrast Social History [...] on filedocumented in this encounter Care Teams Steam Press Operator Relationship Specialty Start Date End Date Missy Milner RN [address] [place] [address] Registered Nurse Family Medicine 04/23/25 Conor Vidal 04/23/25 documented as of this encounter
--- OUTSIDE RECORDS SUMMARY | 2025-07-18 03:09 | XMS_ITS | Encounter Summary ---
Author Organization [facility] Address [address] [facility] [address] [place] [address] Phone Care Team Providers Care Fiberglass Auto Body Repairer Name Role Phone [facility], [facility] Primary Care Provider Pcp, Unknown Unavailable Unavailable Encounter Details Date Type Department Care Team (Late st Contact Info) Description 02/02/2024 Procedure Pass [facility] Endoscopy Admitting Dept Virtual Department [address] [place] [address] Social History Tobacco Use Types Packs/Day Years [...] on filedocumented in this encounter Care Teams Fiberglass Auto Body Repairer Relationship Specialty Start Date End Date [facility] [address] [place] [phone] PCP - General 10/07/23 Pcp, Unknown 10/07/23 documented as of this encounter Additional Source Comments The information contained in this document represents components of the legal health record. It is not the complete legal health record.[facility]
--- OUTSIDE RECORDS SUMMARY | 2025-07-18 03:09 | XMS_ITS | Encounter Summary ---
Author Organization [facility] Address [address] [facility] [address] [place] [phone] Phone Care Team Providers Care Radio Presenter Name Role Phone [facility], [facility] Primary Care Provider Pcp, Unknown Unavailable Unavailable Encounter Details Date Type Department Care Team (Late st Contact Info) Description 01/04/2024 Transcribe Orders [facility] [address] [place] [id number] Missy Miranda PA [address] [place] [phone] [email or web address] Need for hepatitis C screening test (Primary [...] EST) FERRITIN 168 30 - 400 ug/L [facility] Blood 01/04/2024 9:22 AM EST 01/04/2024 9:53 AM EST Missy WALLACE LAB BLOOD ORDERABLES Fin al Result Performing Organization Address City/[facility] Co de Phone Number [address] [address] * (ABNORMAL) PT-INR (01/04/2024 9:22 AM EST) [facility] PT 15.9(H) 10.2 - 12.9 sec [facility] INR 1.4(H) 0.9 - 1.1 [facility] Comment:Therapeutic range fo r oral Vitamin K antagonists: 2.0-3.5 Blood 01/04/2024 9:22 AM EST 01/04/2024 9:53 AM EST Missy WALLACE LAB BLOOD ORDERABLES Fin al Result Performing Organization Address City/[facility]/ZIP Co de Phone Number [address] [address] * Iron and iron binding capacity (01/04/2024 9:22 AM EST) IRON 81 45 - 160 ug/dL [facility] IRON BINDING CAPACITY 326 228 - 428 ug/dL [facility] TRANSFERRIN SATURAT. 25 20 - 55 % [facility] Blood 01/04/2024 9:22 AM EST 01/04/2024 9:53 AM EST Missy WALLACE LAB BLOOD ORDERABLES Fin al Result Performing Organization Address [facility] de Phone Number [address] [address] * Lipase (01/04/2024 9:22 AM EST) LIPASE 35 16 - 63 U/L [facility] Blood 01/04/2024 9:22 AM EST 01/04/2024 9:53 AM EST Missy WALLACE LAB BLOOD ORDERABLES Fin al Result Performing Organization Address [facility] de Phone Number [address] [address] * Hepatitis C antibody, qualitative (01/04/2024 9:22 AM EST) HCV NON-REACTIV E NON-REACTI VE [facility] Blood 01/04/2024 9:22 AM EST 01/04/2024 9:53 AM EST Missy WALLACE LAB BLOOD ORDERABLES Fin al Result Performing Organization Address [facility] de Phone Number [address] [address] * Hepatitis B surface antibody (01/04/2024 9:22 AM EST) HBV SURFACE ANTIBODY Negative [facility] Comment: Unvaccinated: Negative Vaccinated: Positive Blood 01/04/2024 9:22 AM EST 01/04/2024 9:53 AM EST Missy WALLACE LAB BLOOD ORDERABLES Fin al Result Performing Organization Address City/[facility]/ZIP Co de Phone Number [address] [address] * Hepatitis B surface antigen (01/04/2024 9:22 AM EST) HBV SURFACE ANTIGEN NON-REACTI VE NON-REACTI VE [facility] Blood 01/04/2024 9:22 AM EST 01/04/2024 9:53 AM EST Missy WALLACE LAB BLOOD ORDERABLES Fin al Result Performing Organization Address [facility] de Phone Number [address] [address] * Hepatitis B core antibody, total (01/04/2024 9:22 AM EST) HEP B CORE AB, TOT NON-REACTI VE NON-REACTI VE [facility] Blood 01/04/2024 9:22 AM EST 01/04/2024 9:53 AM EST Missy WALLACE LAB BLOOD ORDERABLES Fin al Result Performing Organization Address [facility] Co de Phone Number [address] [address] * HEPATITIS A ANTIBODY, TOTAL (01/04/2024 9:22 AM EST) HAV TOTAL AB NON-REACTI VE NON-REACTI VE [facility] Blood 01/04/2024 9:22 AM EST 01/04/2024 9:53 AM EST Missy WALLACE LAB BLOOD ORDERABLES Fin al Result Performing Organization Address [facility] Co de Phone Number [address] [address] * (ABNORMAL) GGT (Gamma glutamyl transferase) (01/04/2024 9:22 AM EST) GGT 54(H) 11 - 51 U/L [facility] Blood 01/04/2024 9:22 AM EST 01/04/2024 9:53 AM EST Missy WALLACE LAB BLOOD ORDERABLES Fin al Result [address] [address] * C-Reactive Protein (01/04/2024 9:22 AM EST) Pathologist [facility] C REACTIVE PROTEIN <3.0 0.0 - 4.0 mg/L [facility] Blood 01/04/2024 9:22 AM EST 01/04/2024 9:53 AM EST Missy WALLACE LAB BLOOD ORDERABLES Fin al Result Performing Organization Address City/[facility] Co de Phone Number [address] [address] * (ABNORMAL) Comprehensive metabolic panel (01/04/2024 9:22 AM EST) Pathologist [facility] SODIUM 137 133 - 146 mmol/L [facility] POTASSIUM 4.5 3.3 - 5.1 mmol/L [facility] CHLORIDE 105 96 - 108 mmol/L [facility] CO2 22 21 - 35 mmol/L [facility] BUN 14 6 - 19 mg/dL [facility] CREATININE 0.80 0.5 - 1.5 mg/dL [facility] GLUCOSE 104(H) 70 - 99 mg/dL [facility] ALBUMIN 4.1 3.9 - 4.8 g/dL [facility] TOTAL PROTEIN 8.1(H) 6.5 - 8.0 g/dL [facility] CALCIUM 10.4(H) 8.4 - 10.3 mg/dL [facility] ALKALINE PHOSPHATASE 118(H) 39 - 117 U/L [facility] TOTAL BILIRUBIN 0.6 0.0 - 1.2 mg/dL [facility] AST 25 0 - 37 U/L [facility] ALT 7 0 - 40 U/L [facility] GLOBULIN 4.0 1 - 4.8 g/dL [facility] EGFR 105 >59 mL/min/1.7 3m2 [facility] Comment:Estimated glomerular filtration rate calculated using the CKD-EPI refit equation. ANION GAP 15 10 - 20 mmol/L [facility] Blood 01/04/2024 9:22 AM EST 01/04/2024 9:53 AM EST us Missy WALLACE LAB BLOOD ORDERABLES Fin al Result Performing Organization Address City/State/[facility] Co de Phone Number [address] [address] * (ABNORMAL) CBC and differential (01/04/2024 9:22 AM EST) WBC 3.17(L) 4.00 - 11.00 K/uL [facility] RBC 3.41(L) 4.23 - 5.82 M/uL [facility] HGB 10.7(L) 13.4 - 17.5 g/dL [facility] HCT 33.8(L) 37.0 - 51.0 % [facility] PLT 64(L) 140 - 430 K/uL [facility] Comment:Consistent with prev ious result. MCV 99.1(H) 78.0 - 97.0 fL [facility] MCH 31.4 25.0 - 33.0 pg [facility] MCHC 31.7(L) 32.0 - 36.0 g/dL [facility] RDW 13.0 11.0 - 15.0 % [facility] MPV 13.2(H) 8.4 - 12.8 fl [facility] DIFF METHOD Auto [facility] NEUTS 57.2 43.0 - 75.0 % [facility] LYMPHS 24.9 18.2 - 47.4 % [facility] MONOS 12.0(H) 4.00 - 11.00 % [facility] EOS 4.7 0.0 - 8.0 % [facility] BASOS 0.9 0.0 - 2.0 % [facility] Granulocytes, immature (%) 0.3 0.0 - 0.9 % [facility] ABSOLUTE NEUTS 1.81 1.80 - 7.70 K/uL [facility] ABSOLUTE LYMPHS 0.79(L) 1.00 - 3.10 K/uL [facility] ABSOLUTE MONOS 0.38 0.20 - 0.80 K/uL [facility] ABSOLUTE EOS 0.15 0.00 - 0.80 K/uL [facility] ABSOLUTE BASOS 0.03 0.00 - 0.09 K/uL [facility] Granulocytes, immature 0.01 0.00 - 0.05 K/uL [facility] Blood 01/04/2024 9:22 AM EST 01/04/2024 9:53 AM EST Missy WALLACE LAB BLOOD ORDERABLES Fin al Result [address] [address] * (ABNORMAL) Immunoglobulin A (01/04/2024 9:22 AM EST) Pathologist [facility] IgA 436(H) 70 - 400 mg/dL [facility] Blood 01/04/2024 9:22 AM EST 01/04/2024 9:53 AM EST [facility] Nathaly Miranda [place] LAB BLOOD ORDERABLES Fin al Result [address] [address] * Tissue transglutaminase IgA (01/04/2024 9:22 AM EST) TTG IGA ANTIBODY 1.9 <4.0 (Negative) U/mL [facility] [address] Blood 01/04/2024 9:22 AM EST 01/04/2024 9:53 AM EST Missy WALLACE LAB BLOOD ORDERABLES Fin al Result [facility] [address] [place] [address] * Smooth Muscle Antibody (01/04/2024 9:22 AM EST) SMOOTH MUSCLE AB POSITIVE AT 1:20 [facility] Comment: Performing Physician, Max Jimenez M.D., [id number] Normal: Negative at 1:20 Blood 01/04/2024 9:22 AM EST 01/04/2024 9:53 AM EST Missy WALLACE LAB BLOOD ORDERABLES Fin al Result Performing Organization Address [facility] Co de Phone Number [address] [address] * Ceruloplasmin (01/04/2024 9:22 AM EST) CERULOPLASMIN 31 20 - 60 mg/dL [facility] Blood 01/04/2024 9:22 AM EST 01/04/2024 9:53 AM EST Missy WALLACE LAB BLOOD ORDERABLES Fin al Result Performing Organization Address [facility] Co de Phone Number [address] [address] * (ABNORMAL) Antinuclear antibody (JERMAIN) (01/04/2024 9:22 AM EST) JERMAIN SCREEN ON HEP 2 Positive(A ) Negative [facility] Comment:An JERMAIN Titer has bee n reflexed. The results will follow. Blood 01/04/2024 9:22 AM EST 01/04/2024 9:53 AM EST Missy WALLACE LAB BLOOD ORDERABLES Fin al Result Performing Organization Address City/[facility] Co de Phone Number MENDOZA BISMARK [address] [address] * Anti-Mitochondrial Antibody (AMA) (01/04/2024 9:22 AM EST) MITOCHONDRIAL AB NEGATIVE AT 1:20 [facility] Comment: Performing Physician, Max Jimenez M.D., [id number] Normal: Negative at 1:20 Blood 01/04/2024 9:22 AM EST 01/04/2024 9:53 AM EST Missy WALLACE LAB BLOOD ORDERABLES Fin al Result [address] [address] * Amylase (01/04/2024 9:22 AM EST) Pathologist [facility] AMYLASE 86 28 - 100 U/L [facility] Blood 01/04/2024 9:22 AM EST 01/04/2024 9:53 AM EST Missy WALLACE LAB BLOOD ORDERABLES Fin al Result Performing Organization Address City/[facility]/ZIP Co de Phone Number [address] [address] * AFP (non-maternal specimens) (01/04/2024 9:22 AM EST) Pathologist [facility] AFP (NON-MATERNAL) 4.7 <7.9 ng/mL [facility] Comment: Test Methodology Filipe [id number] Patient results determined by assays using different manufacturers or methods may not be comparable. Blood 01/04/2024 9:22 AM EST 01/04/2024 9:53 AM EST Missy WALLACE LAB BLOOD ORDERABLES Fin al Result Performing Organization Address City/[facility]/ZIP Co de Phone Number [address] [address] * [id number]-[id number] phenotyping (01/04/2024 9:22 AM EST) ALPHA 1 ANTITRYPSIN 173 100 - 190 mg/dL [facility] [address] Comment: (NOTE) ADDITIONAL INFORMATION Method: Nephelometry A1A PHENOTYPE MM bands [facility] [address] Comment: (NOTE) A single M isoform is detected. In the context of a normal xdrty-[id number] concentration, this is consistent with an MM phenotype. ADDITIONAL INFORMATION Method: Isoelectric Focusing, This assay identifies the phenotype of the circulating hvaex-6-qawokykcppp (A1A) protein. If the patient is on replacement therapy or has been recently transfused, the phenotype will detect patient and replacement or transfused plasma A1A protein. This test also cannot detect a null allele which could be responsible for an A1A deficiency. Blood 01/04/2024 9:22 AM EST 01/04/2024 9:53 AM EST Missy WALLACE LAB BLOOD ORDERABLES Fin al Result [facility] [address] [place] [address] documented in this encounter Visit Diagnoses Diagnosis Need for hepatitis C screening test- Primary Special screening examination for other specified viral diseases Hepatic cirrhosis, unspecified hepatic cirrhosis type, unspecified whether ascites present Esophageal varices in alcoholic cirrhosis Esophageal varices without mention of bleeding documented in this encounter Care Teams Radio Presenter Relationship Specialty Start Date End Date [facility] [address] [place] [address] PCP - General 10/07/23 Pcp, Unknown 10/07/23 documented as of this encounter Additional Source Comments The information contained in this document represents components of the legal health record. It is not the complete legal health record.[facility]
--- NOTE | 2025-07-18 03:20 | ED.GENADULT ---
HPI - General Adult General Chief complaint: General Medical Stated complaint: lower left extremity pain 06/22 Source: patient and EMS Mode of arrival: EMS Limitations: no limitations History of Present Illness ED Provider: Dr. Alexandria Sweeney HPI narrative: Patient comes to the emergency room via ambulance. Patient states that he was sleeping outside in the alley, started radiating, got cold, ask them to bring him to emergency room. Patient admits that he has been drinking alcohol. Patient states that he drinks every day. Patient denies falls. Denies chest pain or shortness of breath. Patient states that he told the EMS crew that he has chronic left leg pain so they would bring him here. Patient states that the cold temperature in the brain make his leg hurt worse. According to EMS, initial patient's oxygen saturation was in the mid 60s so the put him on 2 L of oxygen. However, they report the patient was already cold to touch because he was all wet. By the time that patient arrived in the emergency room, patient's oxygen saturation was in the mid 90s. Patient denies SI or HI Related Data Previous Rx's ?Medication ?Instructions ?Recorded furosemide 40 mg tablet (Lasix) 40 mg PO DAILY #30 tabs 07/16/25 levofloxacin 500 mg tablet 500 mg PO DAILY #2 tabs 07/16/25 Allergies Allergy/AdvReac Type Severity Reaction Status Date / Time No Known Allergies (No Known Allergy Verified 07/18/25 02:29 Allergies*) Review of Systems Review of Systems: Constitutional : No Weight loss, No Fever, No Chills, No Night Sweats, No Fatigue, No Malaise, complaining of feeling cold and wet ENT/Mouth : No Hearing loss, No Ear Pain, No Nasal Congestion, No Sinus Pain, No Hoarseness, No sore throat, No Rhinorrhea, No Swallowing Difficulty Eyes: No Eye Pain, No Swelling, No Redness, No Foreign Body, No Discharge, No Vision Changes Cardiovascular : No Chest Pain, No SOB, No Dyspnea on Exertion, No Orthopnea, No Edema, No Palpitations Respiratory : No Cough, No Sputum, No Wheezing, No Smoke Exposure, No Dyspnea Gastrointestinal : No Nausea, No Vomiting, No Diarrhea, No Constipation, No abdominal Pain, No Hematochezia, No Melena Genitourinary : no irregular bleeding, No Dysuria, No Urinary Frequency, No Hematuria, No Urinary Incontinence, No Urgency, No Flank Pain, No Urinary Flow Changes, No Hesitancy Musculoskeletal : No joint pain, No Myalgias, No Joint Swelling Skin : No Skin Lesions, No rash Neuro : No Weakness, No Numbness, No Paresthesias, No Loss of Consciousness, No Dizziness, No Headache Psych : No Anxiety/Panic, No Depression, No SI/HI/AH/VH , patient admits to daily alcohol drinking Heme/Lymph: No Bruising, No Bleeding,No Lymphadenopathy Endocrine : No Polyuria, No Polydipsia, No Temperature Intolerance [facility] Past Medical History Medical History Alcohol use disorder CHF (congestive heart failure) Alcohol abuse Acute hypoxemic respiratory failure Anemia Pneumonia Alcohol withdrawal syndrome Pancytopenia Alcohol abuse Thrombocytopenia Esophageal varices Acute on chronic anemia Alcoholic liver disease Aspiration pneumonia Thrombocytopenia Malnutrition CHF (congestive heart failure) Anemia Hypomagnesemia Cirrhosis Thrombocytopenia Acute on chronic anemia CHF (congestive heart failure) Anemia Alcohol abuse Surgical History No history of previous surgery Social History Social History Household Members: None Household Members Other:: homeless Housing: Other Housing Other:: homeless Do you presently have visiting nurse or other home services: No Unable to assess alcohol history related to: Unable to respond Alcohol intake: current Alcohol intake frequency: 3 or more drinks per day Alcohol type: beer and hard liquor Comment: pt refuse to have staff remain in BR Patient Tobacco Use Status: Former Tobacco user Tobacco use type: Cigarette Second Hand Smoke Exposure: No Advance Directives: Yes Advance Directives on File: Yes Advance Directives Date on File: 07/13/23 service: No Physical Exam ED Exam Exam: Appearance: Alert. Oriented X3. No acute distress. His clothes are soaking wet Eyes: Pupils equal, round and reactive to light. ENT: Pharynx normal. Neck: Normal inspection. Neck supple. No lymph nodes noted. No crepitus CVS: Normal heart rate and rhythm. Pulses normal. Normal S1 and S2 Respiratory: No respiratory distress. Breath sounds normal. No Wheezing. No rales Abdomen: Soft and nontender. No rigidity. No distention. Skin: Skin warm and dry. Normal skin color. Normal skin turgor. Extremities: No lower extremity edema. No Lacerations. No Rash Neuro: Oriented X 3. No motor deficit. No sensory deficit. Moving all extremities. No slurred speech. CN 2 through 12 grossly intact Psych: calm, cooperative, normal affect Vital Signs: Vital Signs - 24 hr 07/18/25 02:36 07/18/25 03:32 07/18/25 04:44 Temperature 97.4 F Pulse Rate 66 76 Respiratory Rate 16 16 Blood Pressure 96/55 L Pulse Oximetry 98 96 94 Oxygen Delivery Method Nasal Cannula Nasal Cannula Nasal Cannula Oxygen Flow Rate 2 1 1 07/18/25 06:44 Temperature 97.1 F Pulse Rate 67 Respiratory Rate 16 Blood Pressure Pulse Oximetry 98 Oxygen Delivery Method Room Air Oxygen Flow Rate BMI result Body Mass Index 20.7 Course Course Course Narrative: Patient admits that he came because he is cold and wet. Patient's clothes were changed, patient will be staying overnight in the ED Physician observation started at 03:00 Patient is in 2 L of oxygen. Patient is very well known to us here in the emergency room. When patient sleeps, he needs oxygen. Medical Decision Making Medical Decision Making MDM Narrative: Patient is awake, alert, ambulatory with his cane. Patient's oxygen saturation 95%. Patient feels well and ready for discharge Differential Diagnosis Differential Diagnoses: The differential diagnosis associated with the presentation includes (Alcohol intoxication, hypothermia, homeless) Admission/Observation Consideration of admission/observation: Escalation of care including admission/observation considered (Patient is under physician observation, waiting to be discharged in the morning once he is fully sober) Critical Care Time Critical Care Time Critical Care Time: Yes Total Critical Care Time: 35 Attestation: I have personally provided critical care time. Time includes review of lab data, radiology results, discussion with consultants, and monitoring for potential decompensation. Intervention performed as documented. Discharge Plan Discharge Clinical Impression: Cold feeling, Alcohol intoxication Patient Disposition: Home, Self-Care Instructions: Abuse of Alcohol (ED) Additional Instructions: Please follow-up with your primary care physician tomorrow. If you have any worsening or new symptoms, please return to the emergency room or call 911 Prescriptions: No Action levofloxacin 500 mg tablet 500 mg PO DAILY Qty: 2 0RF furosemide [Lasix] 40 mg tablet 40 mg PO DAILY Qty: 30 0RF Print Language: Tajik
[2025-07-18 03:32] VITALS: O2SAT 96
[2025-07-18 04:44] VITALS: PULSE 76; RESP 16; O2SAT 94
--- NOTE | 2025-07-18 04:48 | PC.NURSE ---
Patient resting comfortably in stretcher with both side rails up. Patient given warm blankets and a urinal. Oxygen titrated down to 1L, maintaining well. Patient alert and able to answer questions, stating he was cold. Pt RR even and unlabored.
[2025-07-18 06:44] VITALS: PULSE 67; RESP 16; TEMP 36.2; O2SAT 98
[2025-07-18 07:16] VITALS: BP 00/00; PULSE 67; RESP 16; TEMP 36.2; O2SAT 98
== END 2025-07-18 07:17 | disposition home or self-care (01) ==
PROVIDERS: Emergency Provider Emergency Medicine
DX: F10.129 Alcohol abuse with intoxication, unspecified (principal); Y90.9 Presence of alcohol in blood, level not specified; T69.9XXA Effect of reduced temperature, unspecified, initial encounter
CPT/HCPCS: 99284

== ENCOUNTER 2025-07-30 12:40 | Emergency (ER) | payer MEDICAID, SELFPAY ==
[2025-07-30 12:47] VITALS: BP 118/60; PULSE 87; O2SAT 86
[2025-07-30 12:54] VITALS: BP 112/55; PULSE 76; RESP 16; TEMP 36.8; O2SAT 91; BMI 19.6
[2025-07-30 14:35] VITALS: BP 94/50; PULSE 70; RESP 14; TEMP 36.9; O2SAT 93
--- NOTE | 2025-07-30 14:57 | ED.GENADULT ---
HPI - General Adult General Chief complaint: ETOH/Substance Use Stated complaint: ETOH- left ankle pain Time Seen by Provider: 07/30/25 14:55 Source: patient and EMS Mode of arrival: EMS Limitations: altered mental status ( Alcohol intoxication) History of Present Illness ED Provider: DR. Goldsmith HPI narrative: 55-year-old male who is well known to our ED staff for alcohol intoxication and being homeless patient was found in the street wandering bystanders called 911 and brought in to the emergency department patient is acting at his normal baseline, patient was discharged from the hospital for being hypoxic secondary to pneumonia, patient has no complaint today except for being transported to the hospital from the street. No SI, no HI, declined falling or head injury today, complaining of left foot pain from walking too much all day. Related Data Previous Rx's ?Medication ?Instructions ?Recorded furosemide 40 mg tablet (Lasix) 40 mg PO DAILY #30 tabs 07/16/25 levofloxacin 500 mg tablet 500 mg PO DAILY #2 tabs 07/16/25 Allergies Allergy/AdvReac Type Severity Reaction Status Date / Time No Known Allergies (No Known Allergy Verified 07/30/25 12:57 Allergies*) Review of Systems Review of Systems: All other systems are reviewed and are negative Constitutional: Reports as per HPI and Reports no additional constitutional complaints Eyes: Reports as per HPI and Reports no additional eye complaints Reports system reviewed and no additional complaints, except as documented Cardiovascular: Reports as per HPI and Reports no additional cardiovascular complaints Respiratory: Reports as per HPI and Reports no additional respiratory complaints Gastrointestinal: Reports as per HPI and Reports no additional gastrointestinal complaints Genitourinary: Reports no additional female genitourinary complaints Musculoskeletal: Reports no additional musculoskeletal complaints Skin/Breast: Reports system reviewed and no additional complaints, except as docu Psychiatric: Reports no additional psychiatric complaints Endocrine: Reports no additional endocrine complaints Hematologic/Lymphatic: Reports no additional hematologic/lymphatic complaints Allergic/Immunologic: Reports no additional allergic/immunologic complaints Reports system reviewed and no additional complaints, except as documented and Reports Abnormal speech present PMFSH Past Medical History Medical History Alcohol use disorder CHF (congestive heart failure) Alcohol abuse Acute hypoxemic respiratory failure Anemia Pneumonia Alcohol withdrawal syndrome Pancytopenia Alcohol abuse Thrombocytopenia Esophageal varices Acute on chronic anemia Alcoholic liver disease Aspiration pneumonia Thrombocytopenia Malnutrition CHF (congestive heart failure) Anemia Hypomagnesemia Cirrhosis Thrombocytopenia Acute on chronic anemia CHF (congestive heart failure) Anemia Alcohol abuse Surgical History No history of previous surgery Social History Social History Household Members: None Household Members Other:: homeless Housing: Other Housing Other:: homeless Do you presently have visiting nurse or other home services: No Unable to assess alcohol history related to: Unable to respond Alcohol intake: current Alcohol intake frequency: 3 or more drinks per day Alcohol type: beer and hard liquor Comment: pt refuse to have staff remain in [place] Patient Tobacco Use Status: Former Tobacco user Tobacco use type: Cigarette Second Hand Smoke Exposure: No Advance Directives: Yes Advance Directives on File: Yes Advance Directives Date on File: 07/13/23 Do you have a plan to hurt others: No Plan service: No Physical Exam ED Vital Signs: Vital Signs - 24 hr 07/30/25 12:54 07/30/25 14:35 Temperature 98.3 F 98.5 F Pulse Rate 76 70 Respiratory Rate 16 14 Blood Pressure 112/55 L 94/50 L Pulse Oximetry 91 L 93 Oxygen Delivery Method Nasal Cannula Nasal Cannula Oxygen Flow Rate 2 BMI result Body Mass Index 19.6 Vital signs have been reviewed and appear to be correct. Blood pressure elevated. Heart rate normal. Respiratory rate normal. Temperature normal. Oxygen saturation normal. Appearance: Alert , alcohol on breath and intoxicated,No acute distress. Head: Normal external exam. Normocephalic. Atraumatic. No [place] signs noted. No raccoon eyes noted Eyes: PERRLA. EOMI. Conjunctiva and sclera normal. Eyelids normal. ENT: TM's Normal. Pharynx normal. Uvula midline. Moist mucous membranes. No trismus noted. No drooling noted. No muffled voice noted. Neck: Normal inspection. Neck supple. FROM. No adenopathy. Thyroid Normal. No meningeal signs. No neck mass noted. CVS: Normal heart rate and rhythm. Heart sound normal. No murmurs noted. Pulses normal throughout. Respiratory: No respiratory distress. Painless inspiration. Breath sounds normal. No wheezes/rales/rhonchi noted. Chest nontender. No accessory muscle usage noted or decreased air movement noted. Abdomen: Soft and nontender. Bowel sounds normal in all 4 quadrants. No distention noted. No organomegaly noted. No visible injury noted. Back: No CVA tenderness. Full range of motion noted. Skin: Skin warm and dry. Normal skin color. Normal skin turgor. No rashes/lesions/lacerations noted. Extremities: No lower extremity edema. Extremities exhibit normal range of motion. Extremities nontender. Neuro: Cranial nerve exam: II-XII are grossly intact No motor deficit. No sensory deficit. Reflexes normal. Course Reevaluation(s) Reevaluation #1: Patient now is AAO x3 complaining of left foot pain patient had left foot x-rays in the past patient complaint is secondary to extensive walking secondary patient homelessness patient was provided a sheet of available homeless shelters that he can contact. Time: 20:26 Medical Decision Making Differential Diagnosis Differential Diagnoses: The differential diagnosis associated with the presentation includes ( alcohol intoxication, chronic left foot pain.) Admission/Observation Consideration of admission/observation: Escalation of care including admission/observation considered Discharge Plan Discharge Clinical Impression: Alcoholic intoxication, Chronic pain in left foot Patient Disposition: Home, Self-Care Instructions: Alcohol Intoxication (ED) Prescriptions: No Action levofloxacin 500 mg tablet 500 mg PO DAILY Qty: 2 0RF furosemide [Lasix] 40 mg tablet 40 mg PO DAILY Qty: 30 0RF Print Language: Maori
--- OUTSIDE RECORDS SUMMARY | 2025-07-30 16:32 | XMS_ITS ---
Author Organization [employer] Address [address] [place] [address] 7 [place] [address] Care Team Providers Care Plastics Nurse Name Role Phone Missy Milner RN Unavailable [phone] Conor Vidal Unavailable CHW Complex Status:Outreach In Progress (Enrolling) Start date:04/23/2025 Enrollment reason:ADT Feed Overview ADT-admitted [facility] 04/22/25 Case Team Name Relationship Phone Conor Vidal(Responsible Staff) [phone] Continued Care and Services Coordination
--- OUTSIDE RECORDS SUMMARY | 2025-07-30 16:32 | XMS_ITS | Encounter Summary ---
Author Organization [facility] Address [address] [facility] [address] [place] [id number] Phone Care Team Providers Care Supervisor Ship Maintenance Services Name Role Phone Elbert Hayward MD Primary Care Provider [facility], [facility] Primary Care Provider Pcp, Unknown Unavailable Unavailable Encounter Details Date Type Department Care Team (Late st Contact Info) Description 10/06/2023 Procedure Pass [facility], Ct Scan - [address] [address] Social History Tobacco Use Types Packs/Day Years [...] on filedocumented in this encounter Care Teams Supervisor Ship Maintenance Services Relationship Specialty Start Date End Date Elbert Hayward MD PCP - General 05/13/14 10/06/23 [facility], MD Marya [address] [place] [address] PCP - General 10/07/23 Pcp, Unknown 10/07/23 documented as of this encounter Additional Source Comments The information contained in this document represents components of the legal health record. It is not the complete legal health record.[facility]
--- OUTSIDE RECORDS SUMMARY | 2025-07-30 16:32 | XMS_ITS | Encounter Summary ---
Author Organization [employer] Address [address] [place] [address] [place] [address] Care Team Providers Care Account Assistant Name Role Phone Missy Milner RN Unavailable [phone] Conor Vidal Unavailable Encounter Details Date Type Department Care Team ([facility] st Contact Info) Description 06/09/2025 Results Follow-Up [facility] [address] [place] [address] Provider, Generic External Data XR Chest 1 [...] on filedocumented in this encounter Care Teams Account Assistant Relationship Specialty Start Date End Date Missy Milner RN [address] [place] [address] Registered Nurse Family Medicine 04/23/25 Conor Vidal 04/23/25 documented as of this encounter
--- OUTSIDE RECORDS SUMMARY | 2025-07-30 16:32 | XMS_ITS ---
Author Organization [employer] Address [address] [place] [address] [address] [place] [address] Care Team Providers Care Meat Trimmer Name Role Phone Missy Milner RN Unavailable [phone] Conor Vidal Unavailable CM Complex Status:Outreach In Progress (Enrolling) Start date:04/23/2025 Enrollment reason:ADT Feed Overview ADT-admitted [facility] 04/22/25 Case Team Name Relationship Phone Missy Milner RN(Responsible Staff) Registered Nurse [phone] Continued Care and Services Coordination
--- OUTSIDE RECORDS SUMMARY | 2025-07-30 16:32 | XMS_ITS | Encounter Summary ---
Author Organization [facility] Address [address] [place] [address] [place] [address] Care Team Providers Care Carpenter General Name Role Phone Missy Milner RN Unavailable [phone] Conor Vidal Unavailable Encounter Details Date Type Department Care Team (Latest Contact Info) Description 06/19/2025 Results [facility] [address] [place] [address] External Provider, [facility] CT Chest w/ Contrast Social History [...] on filedocumented in this encounter Care Teams Carpenter General Relationship Specialty Start Date End Date Missy Milner RN [address] [place] [address] Registered Nurse Family Medicine 04/23/25 Conor Vidal 04/23/25 documented as of this encounter
--- OUTSIDE RECORDS SUMMARY | 2025-07-30 16:32 | XMS_ITS | Clinical Summary ---
Author Organization [employer] Address [address] [place] [address] 7[address] [place] [address] Care Team Providers Care Tech Ed/Woodshop Teacher Name Role Phone Missy Milner RN Unavailable [phone] Young Conor Unavailable Allergies No known [...] Patient presented with altered mental status from [facility] where he appeared more lethargic than [...] Encounters Date Type Department Care Team Description 07/21/2025 Patient Outreach [facility] [address] [place] [address] Conor Vidal 07/08/2025 Patient Outreach [facility] [address] [place], [place] [phone] Missy Milner, LAURA 07/07/2025 Telephone [facility] [address] [place] [address] Mihaela Zhong, LAURA 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 07/06/2025 Orders Only GENERIC EXTERNAL DATA DEPARTMENT Provider, Generic External Data 07/02/2025 Orders Only [facility] External Provider, [facility] 07/01/2025 Patient Outreach [facility] [address] [place] [address] Missy Milner, LAURA Care Coordination (C3CM/CHW Conor Vidal, TC #5 initial outreach attempt_lvm) 06/19/2025 Results Follow-Up [facility] [address] [place] [address] Provider, Generic External Data XR Chest 2 Views 06/19/2025 Results Follow-Up [facility] [address] [place], [place] [phone] External Provider, [facility] CT Chest w/ Contrast 06/19/2025 Orders Only [facility] External Provider, [facility] 06/18/2025 Orders Only GENERIC EXTERNAL DATA DEPARTMENT Provider, Generic External Data 06/11/2025 Travel 06/09/2025 Results Follow-Up [facility] [address] [place], [place] [phone] Provider, Generic External Data XR Chest 1 View 06/08/2025 Orders Only GENERIC EXTERNAL DATA DEPARTMENT Provider, Generic External Data 06/05/2025 Orders Only GENERIC EXTERNAL DATA DEPARTMENT Provider, Generic External Data 05/30/2025 Patient Outreach [facility] [address] [place] [phone] Missy Milner RN Care Coordination (C3CM/CHW Conor Vidal, TC #4 Initial outreach attempt_lvm ) 05/23/2025 Orders Only GENERIC EXTERNAL DATA DEPARTMENT Provider, Generic External Data 05/21/2025 Orders Only GENERIC EXTERNAL DATA DEPARTMENT Provider, Generic External Data 05/19/2025 Patient Outreach [facility] PED[facility] [address] [place] [address] Missy Milner RN 05/13/2025 Orders Only [facility] External Provider, [facility] 05/09/2025 Patient Outreach [facility] [address] [place] [address] Missy Milner RN 05/08/2025 1:00 PM EDT Office Visit [facility] [address] [place] [phone] Karely Guerra MD 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 Please make this patient a high priority.); NEW PATIENT AAPT REQUEST 05/08/2025 Travel 05/05/2025 Orders Only GENERIC EXTERNAL DATA DEPARTMENT Provider, Generic External Data 05/02/2025 Patient Outreach [facility] PED[facility] [address] [place] [address] Missy Milner RN 05/02/2025 Patient Outreach [facility] [address] [place] [address] Missy Milner RN 05/02/2025 Telephone [facility] [address] [place] [phone] Misti Murry MD NEW PT APPT 05/02/2025 Patient Outreach [facility] [address] [place] [address] Misti Murry MD Care Coordination (C3/CHW Conor Vidal, TC #3 initial outreach attempt, appt reminder_lvm) 04/30/2025 Telephone [facility] [address] [place] [address] Misti Murry MD CHART PREP 04/30/2025 Orders Only GENERIC EXTERNAL DATA DEPARTMENT Provider, Generic External Data from Last 3 Months Immunizations Immunization Administration [...] 2 VIEWS Routine 04/30/2025 8:05 AM EDT from Last 3 Months Results * XR Chest 1 View (07/06/2025 7:16 PM EDT) Only the most recent of4 resultswithin the time period is included. Anatomical Region Laterality Modality Chest Radiographic Lamar ging 07/06/2025 7:16 PM EDT Narrative 07/06/2025 7:18 PM EDT [address] [address] XRay Report Signed Patient: Charbel Delgado MR#: [id number] : 1970 Acct:[id number] Age/Sex: 55 / M ADM Date: 07/06/25 Loc: HO.ED Attending Dr: Ordering Physician: Maryann Cee Date of Service: 07/06/25 Procedure(s): XR chest 1V Accession Number(s): [id number] cc: [facility]; Maryann Cee CLINICAL HISTORY: hypoxia 1 view [...] in OV> 07/06/251916 DD/ 15 TD/TT: 07/06/251915 Grain Shipper: Procedure Note Donotuseinterpreter, Image - 07/06/2025 [place] [address] XRay Report Signed Patient: Isaias Delgado#: [id number] : 1970Acct:[id number] Age/Sex: 55 / MADM Date: 07/06/25 Loc: .ED Attending Dr: Ordering Physician: Maryann Cee Date of Service: 07/06/25 Procedure(s): XR chest 1V Accession Number(s): [id number] cc: [facility]; Maryann Cee CLINICAL HISTORY: hypoxia 1 view [...] in OV> 07/06/251916 DD/ 15 TD/TT: 07/06/251915 Grain Shipper: [facility] External Provider IMG XR PROCEDURES Edited Result - Final * (ABNORMAL) Drug Monitoring, Panel 1, Screen, Urine (07/06/2025 6:08 PM EDT) Only the most recent of3 resultswithin the time period is included. Opiate Screen Urine Not Detected Not Detect [facility] Comment:Opiate cut-off is 30 0 ng/mL.Positive results are unconfirmed and should not be used fornon-medical purposes. Barbiturates, Urine POSITIVE(A) Not Detect [facility] Comment:Barbiturate cut-off is 200 ng/mL.Positive results are unconfirmed and should not be used fornon-medical purposes. Phencyclidine Screen Urine Not Detected Not Detect [facility] Comment:Phencyclidine cut-of f is 25 ng/mL.Positive results are unconfirmed and should not be used fornon-medical purposes. Amphetamine Screen Urine Not Detected Not Detect [facility] Comment:Amphetamine cut-off is 1000 ng/mL.Positive results are unconfirmed and should not be used fornon-medical purposes. Benzodiazepines Screen Urine Not Detected Not Detect [facility] Comment:Benzodiazepine cut-o ff is 200 ng/mL.Positive results are unconfirmed and should not be used fornon-medical purposes. Cocaine Screen Urine Not Detected Not Detect [facility] Comment:Cocaine cut-off is 3 00 ng/mL.Positive results are unconfirmed and should not be used fornon-medical purposes. Cannabinoid Screen Urine Not Detected Not Detect [facility] Comment:Cannabinoid cut-off is 50 ng/mL.Positive results are unconfirmed and should not be used fornon-medical purposes. Methadone Screen, Urine Not Detected Not Detect ng/mL [facility] Comment:Methadone cut-off is 300 ng/mL.Positive results are unconfirmed and should not be used fornon-medical purposes. FENTANYL URINE Not Detected Not Detect [facility] Comment:Fentanyl cut-off is 1 ng/mL.Positive results are unconfirmed and should not be used fornon-medical purposes. Oxycodone Urine Screen Not Detected Not Detect ng/mL [facility] Comment:Oxycodone cut-off is 100 ng/mL.Positive results are unconfirmed and should not be used fornon-medical purposes. Buprenorphine Screen Not Detected Not Detect ng/mL [facility] Comment:Buprenorphine cut-of f is 5 ng/mL.Positive results are unconfirmed and should not be used fornon-medical purposes. 07/06/2025 6:08 PM EDT 07/06/2025 6:11 PM EDT Generic External Data Provider LAB URINE ORDERAB LES Final Result Performing Organization Address [facility] Co de Phone Number [facility] [address] [place] [phone] * High Sensitivity Troponin I (07/06/2025 5:58 PM EDT) Only the most recent of6 resultswithin the time period is included. TROPONIN I HIGH SENSITIVITY <2.7 <3.5 - 35.0 ng/L [facility] Comment:The Connolly high sens itivity Troponin-I results should beused in conjunction with other diagnostic information suchas ECG, clinical observations and information, and patientsymptoms to aid in the diagnosis of DC. 07/06/2025 5:58 PM EDT 07/06/2025 6:06 PM EDT Generic External Data Provider LAB BLOOD ORDERAB LES Final Result Performing Organization Address [facility] Co de Phone Number [facility] [address] [place] [address] [phone] * (ABNORMAL) Ethanol (07/06/2025 5:58 PM EDT) Only the most recent of5 resultswithin the time period is included. ETHANOL (MG/DL) IN SER/PLAS 399(HH) mg/dL [facility] Comment:Serum/plasma ethanol results are to be used formedical/treatment purposes only. 07/06/2025 5:58 PM EDT 07/06/2025 6:06 PM EDT us Generic External Data Provider LAB BLOOD ORDERAB LES Final Result [facility] [address] [place], [place] [phone] * (ABNORMAL) CBC auto differential (07/06/2025 5:58 PM EDT) Only the most recent of7 resultswithin the time period is included. White Blood Count 3.8(L) 4.8 - 10.8 X10*3/uL [facility] Red Blood Count 3.19(L) 4.60 - 5.80 X10*6/uL [facility] Hemoglobin 9.9(L) 14.0 - 18.0 g/dl [facility] Hematocrit 29.9(L) 42.0 - 52.0 % [facility] Mean Corpuscular Volume 93.7 80.0 - 98.0 fL [facility] Mean Corpuscular Hemoglobin 31.0 27.0 - 33.0 pg [facility] Mean Corpuscular HGB Conc 33.1 31.0 - 36.0 g/dl [facility] Red Cell Distribution Width 17.9(H) 11.0 - 16.0 % [facility] Platelet Count 60(L) 160 - 400 X10*3/uL [facility] Mean Platelet Volume 11.8 9.4 - 12.4 fL [facility] Neutrophils Percent Auto 55.0 45 - 73 % [facility] Imm Gran Pct Auto 0.5(H) 0.0 - 0.4 % [facility] Lymphocytes Percent Auto 30.6 20 - 40 % [facility] Monocytes Percent Auto 8.8 2 - 11 % [facility] Eosinophils Percent Auto 3.5 0 - 4 % [facility] Basophils Percent Auto 1.6 0 - 2 % [facility] NRBC Pct Auto 0.0 0.0 - 0.2 /100WBC [facility] Neutrophils Absolute Auto 2.1 2.0 - 8.3 x10*3/uL [facility] Imm Gran Abs Auto 0.02 0.00 - 0.03 X10*3/uL [facility] Lymphocytes Absolute Auto 1.2 1.2 - 4.9 X10*3/uL [facility] Monocytes Absolute Auto 0.3 0.1 - 1.2 X10*3/uL [facility] Eosinophils Absolute Auto 0.1 0.0 - 0.4 X10*3/uL [facility] Basophils Absolute Auto 0.1 0.0 - 0.2 X10*3/uL [facility] NRBC Abs Auto 0.000 0.0 - 0.012 X10*3/uL [facility] 07/06/2025 5:58 PM EDT 07/06/2025 6:06 PM EDT Generic External Data Provider LAB BLOOD ORDERAB LES Final Result Performing Organization Address City/[facility] Co de Phone Number [facility] [address] [place] [phone] * B Type Natriuretic Peptide (BNP) (07/06/2025 5:58 PM EDT) Only the most recent of6 resultswithin the time period is included. B Type Natriuretic Peptide 100 <100 pg/mL [facility] 07/06/2025 5:58 PM EDT 07/06/2025 6:06 PM EDT Generic External Data Provider LAB BLOOD ORDERAB LES Final Result Performing Organization Address City/[facility]/ZIP Co de Phone Number [facility] [address] [place] [phone] * (ABNORMAL) Comprehensive Metabolic Panel (07/06/2025 5:58 PM EDT) Only the most recent of4 resultswithin the time period is included. Sodium 143 135 - 145 mmol/L [facility] Potassium 3.6 3.3 - 5.1 mmol/L [facility] Chloride 112(H) 96 - 108 mmol/L [facility] Carbon Dioxide 18(L) 22 - 29 mmol/L [facility] Anion Gap 17 12 - 20 [facility] Urea Nitrogen (BUN) 10 9 - 16 mg/dL [facility] Creatinine, Serum 0.95 0.5 - 1.4 mg/dL [facility] Creatinine Clr Calc Pharmacy 69.6 [facility] Comment:eGFR (calculated fro m the MDRD study equation) and eCrCl(calculated from the Cockcroft-Gault equation) are based ondifferent parameters and may not yield comparable results.If eCrCl result is absurd, please check patient'sheight/weight. Estimated Glomerular Filt Rate >60 [facility] Comment:Chronic Kidney Disea se: Estimated GFR < 60 mL/min/1.87k1Iepdnb Kidney Disease: Estimated GFR < 15 mL/min/1.73m2 Glucose 110 60 - 115 mg/dL [facility] Calcium 8.1(L) 8.4 - 10.2 mg/dL [facility] Bilirubin, Total 0.6 0.0 - 1.0 mg/dL [facility] Aspartate Amino Transferase 51(H) 5 - 37 U/L [facility] Alanine Aminotransferase 11 0 - 40 U/L [facility] Total Protein 8.0 6.5 - 8.0 g/dL [facility] Albumin Level 3.5 3.5 - 5.0 g/dL [facility] Alkaline Phosphatase 158(H) 39 - 117 U/L [facility] 07/06/2025 5:58 PM EDT 07/06/2025 6:06 PM EDT us Generic External Data Provider LAB BLOOD ORDERAB LES Final Result [facility] [address] [place] [phone] * CT Chest w/ Contrast (06/19/2025 4:46 AM EDT) Anatomical Region Laterality Modality Body, Chest Computed Tomogra phy 06/19/2025 4:46 AM EDT Narrative 06/19/2025 4:48 AM EDT [place] [address] [address] Scan Report Signed Patient: Charbel Delgado MR#: [id number] : 1970 Acct:[id number] Age/Sex: 55 / M ADM Date: 06/19/25 Loc: [facility]: Mercedes Hogan MD Ordering Physician: David Galvez PA-C Date of Service: 06/19/25 Procedure(s): CT chest w IV con Accession Number(s): [id number] cc: [facility]; David Galvez PA-C Report Number: [id number]: Total DLP = 265.00 mGy-cm CLINICAL HISTORY: [...] in OV> 06/19/25446 DD/ 5 TD/TT: 06/19/25445 Grain Shipper: Procedure Note Donotuseinterpreter, Image - 06/19/[address] [place] [address] [address] Scan Report Signed Patient: Isaias Delgado#: [id number] : 1970Acct:[id number] Age/Sex: 55 / MADM Date: 06/19/25 Loc: [facility]: Mercedes Hogan MD Ordering Physician: David Galvez PA-C Date of Service: 06/19/25 Procedure(s): CT chest w IV con Accession Number(s): [id number] cc: [facility]; David Galvez PA-C Report Number: [id number]: Total DLP = 265.00 mGy-cm CLINICAL HISTORY: [...] in OV> 06/19/25446 DD/ 5 TD/TT: 06/19/25445 Grain Shipper: [facility] External Provider IMG CT PROCEDURES Edited Result - Final * Lactic Acid (06/18/2025 11:49 PM EDT) Lactic Acid 1.8 0.5 - 2.0 mmol/L [facility] 06/18/2025 11:4 9 PM EDT 06/19/2025 Generic External Data Provider LAB BLOOD ORDERAB LES Final Result [facility] [address] [place] [phone] * XR Chest 2 Views (06/18/2025 11:47 PM EDT) Only the most recent of4 resultswithin the time period is included. Anatomical Region Laterality Modality Chest Radiographic Lamar ging 06/18/2025 11:4 7 PM EDT Narrative 06/18/2025 11:48 PM EDT [address] [address] XRay Report Signed Patient: Charbel Delgado MR#: [id number] : 1970 Acct:[id number] Age/Sex: 55 / M ADM Date: 06/18/25 Loc: .ED Attending Dr: Ordering Physician: David Galvez PA-C Date of Service: 06/18/25 Procedure(s): XR chest 2V Accession Number(s): [id number] cc: [facility]; David Galvez PA-C CLINICAL HISTORY: Hypoxia 2 [...] in OV> 06/18/252347 DD/ 46 TD/TT: 06/18/252346 Grain Shipper: Procedure Note Donotuseinterpreter, Image - 06/19/2025 [place] [address] XRay Report Signed Patient: Isaias Delgado#: [id number] : 1970Acct:[id number] Age/Sex: 55 / MADM Date: 06/18/25 Loc: .ED Attending Dr: Ordering Physician: David Galvez PA-C Date of Service: 06/18/25 Procedure(s): XR chest 2V Accession Number(s): [id number] cc: [facility]; David Galvez PA-C CLINICAL HISTORY: Hypoxia 2 [...] signed by Oskar Tariq MD in OV> 06/18/258 DD/ 46 TD/TT: 06/18/252346 Grain Shipper: [facility] External Provider IMG XR PROCEDURES Edited Result - Final * Slide Review (06/18/2025 9:19 PM EDT) Pathologist [facility] Slide Review VERIFIED [facility] 06/18/2025 9:19 PM EDT 06/18/2025 9:27 PM EDT Generic External Data Provider LAB BLOOD ORDERAB LES Final Result Performing Organization Address [facility]/ZIP Co de Phone Number [facility] [address] [place] [phone] [phone] * Magnesium (06/18/2025 9:19 PM EDT) Only the most recent of5 resultswithin the time period is included. Pathologist [facility] Magnesium 1.6 1.6 - 2.6 mg/dL [facility] 06/18/2025 9:19 PM EDT 06/18/2025 9:27 PM EDT Generic External Data Provider LAB BLOOD ORDERAB LES Final Result Performing Organization Address [facility]/ZIP Co de Phone Number [facility] [address] [place] [phone] * (ABNORMAL) Lactic Acid (06/18/2025 9:19 PM EDT) Lactic Acid 2.4(HH) 0.5 - 2.0 mmol/L [facility] Comment:Critical value for t est(s): LACTA Results called to gildardo baumann by: GOMEZ Person calling: [email or web address] Date: 06/18/25Time:2154 06/18/2025 9:19 PM EDT 06/18/2025 9:27 PM EDT Generic External Data Provider LAB BLOOD ORDERAB LES Final Result Performing Organization Address [facility]/ZIP Co de Phone Number [facility] [address] [place] [phone] * SARS-CoV-2 RNA, Influenza A/B, and RSV RNA, Ql NAAT (06/08/2025 5:01 PM EDT) Only the most recent of2 resultswithin the time period is included. Influenza A PCR NEGATIVE Negative [facility] Influenza B PCR NEGATIVE Negative [facility] Resp Syncy Virus RNA Qual PCR NEGATIVE Negative [facility] SARS COV2 PCR NEGATIVE Negative [facility] Comment:All test results mus [...] use by authorized laboratories.Testing performed on the [employer] GeneXpert utilizingreal-time RT-PCR.All SARS CoV2 and positive influenza A/B results arereported to [facility]. 06/08/2025 5:01 PM EDT 06/08/2025 5:07 PM EDT us Generic External Data Provider LAB MICROBIOLOGY - GENERAL ORDERABLES Final Result Performing Organization Address City/[facility]/ZIP Co de Phone Number [facility] [address] [place] [phone] * (ABNORMAL) Hepatic Function Panel (06/08/2025 5:01 PM EDT) Only the most recent of4 resultswithin the time period is included. Bilirubin, Total 0.7 0.0 - 1.0 mg/dL [facility] Bilirubin, Direct 0.4 0.0 - 0.5 mg/dL [facility] Aspartate Amino Transferase 66(H) 5 - 37 U/L [facility] Alanine Aminotransferase 15 0 - 40 U/L [facility] Total Protein 7.8 6.5 - 8.0 g/dL [facility] Albumin Level 3.5 3.5 - 5.0 g/dL [facility] Alkaline Phosphatase 133(H) 39 - 117 U/L [facility] 06/08/2025 5:01 PM EDT 06/08/2025 5:05 PM EDT us Generic External Data Provider LAB BLOOD ORDERAB LES Final Result [facility] [address] [place] [phone] * (ABNORMAL) Basic Metabolic Panel (06/08/2025 5:01 PM EDT) Only the most recent of3 resultswithin the time period is included. Sodium 144 135 - 145 mmol/L [facility] Potassium 3.4 3.3 - 5.1 mmol/L [facility] Chloride 114(H) 96 - 108 mmol/L [facility] Carbon Dioxide 20(L) 22 - 29 mmol/L [facility] Anion Gap 13 12 - 20 [facility] Urea Nitrogen (BUN) 9 9 - 16 mg/dL [facility] Creatinine, Serum 0.66 0.5 - 1.4 mg/dL [facility] Creatinine Clr Calc Pharmacy 100.2 [facility] Comment:eGFR (calculated fro m the MDRD study equation) and eCrCl(calculated from the Cockcroft-Gault equation) are based ondifferent parameters and may not yield comparable results.If eCrCl result is absurd, please check patient'sheight/weight. Estimated Glomerular Filt Rate >60 [facility] Comment:Chronic Kidney Disea se: Estimated GFR < 60 mL/min/1.04m0Vermnt Kidney Disease: Estimated GFR < 15 mL/min/1.73m2 Glucose 92 60 - 115 mg/dL [facility] Calcium 8.2(L) 8.4 - 10.2 mg/dL [facility] 06/08/2025 5:01 PM EDT 06/08/2025 5:05 PM EDT us Generic External Data Provider LAB BLOOD ORDERAB LES Final Result Performing Organization Address [facility] Co de Phone Number [facility] [address] [place] [phone] * (ABNORMAL) VENOUS BLOOD GAS (06/05/2025 11:59 AM EDT) VBG pH 7.41 7.32 - 7.43 [facility] Comment:METER #: [id number] additional_comment: Cbnievea VBG PCO2 29 mmHg [facility] Comment:METER #: [id number] additional_comment: Cbnievea VBG PO2 109 mmHg [facility] Comment:METER #: [id number] additional_comment: Cbnievea VBG Base Excess -4.5 mmol/L [facility] Comment:METER #: [id number] additional_comment: Cbnievea VBG HCO3 19(L) 22 - 26 mmol/L [facility] Comment:METER #: [id number] additional_comment: Cbnievea O2 Sat, Demetrio 99.0 % [facility] Comment:METER #: [id number] additional_comment: Cbnievea 06/05/2025 11:5 9 AM EDT 06/05/2025 12:03 PM EDT us Generic External Data Provider LAB BLOOD ORDERAB LES Final Result Performing Organization Address [facility]/ZIP Co de Phone Number [facility] [address] [place] [phone] (ABNORMAL) Creatine Kinase, Total (06/05/2025 11:54 AM EDT) Only the most recent of2 resultswithin the time period is included. Creatine Kinase Total 34(L) 38 - 174 U/L [facility] 06/05/2025 11:5 4 AM EDT 06/05/2025 11:57 AM EDT us Generic External Data Provider LAB BLOOD ORDERAB LES Final Result Performing Organization Address City/State/[facility] Co de Phone Number [facility] [address] [place] [phone] * VASC US Lower Extremity Venous Duplex Bilateral (05/23/2025 7:11 PM EDT) 05/23/2025 7:11 PM EDT Narrative [facility] - 05/23/2025 7:12 PM EDT [address] [address] Ultrasound Report Signed Patient: Charbel Delgado MR#: [id number] : 1970 Acct:[id number] Age/Sex: 55 / M ADM Date: 05/23/25 Loc: .ED Attending Dr: Ordering Physician: Dexter Foster Date of Service: 05/23/25 Procedure(s): US venous duplex LE BI Accession Number(s): [id number] cc: Dexter Foster; [facility] CLINICAL HISTORY: bilateral leg swelling Venous duplex [...] in OV> 05/23/251910 DD/ 10 TD/TT: 05/23/251910 Grain Shipper: Procedure Note Donotfernandointerpreter, Image - 05/23/[address] [address] Ultrasound Report Signed Patient: Isaias Delgado#: [id number] : 1970Acct:[id number] Age/Sex: 55 / MADM Date: 05/23/25 Loc: HO.ED Attending Dr: Ordering Physician: Dexter Foster Date of Service: 05/23/25 Procedure(s): US venous duplex LE BI Accession Number(s): [id number] cc: Dexter Foster; [facility] CLINICAL HISTORY: bilateral leg swelling Venous duplex [...] in OV> 05/23/251910 DD/ 10 TD/TT: 05/23/251910 Grain Shipper: us [facility] External Provider CV VASC ULAR PROCEDURES Final Result Performing Organization Address [facility] Co de Phone Number [facility] [address] [place] [phone] * Lipase (05/23/2025 1:50 PM EDT) Lipase 21 8 - 78 U/L [facility] 05/23/2025 1:50 PM EDT 05/23/2025 1:53 PM EDT Generic External Data Provider LAB BLOOD ORDERAB LES Final Result Performing Organization Address [facility] Co de Phone Number [facility] [address] [place] [phone] * US VENOUS DUPLEX LE LT (05/13/2025 10:50 PM EDT) Anatomical Region Laterality Modality Abdomen Ultrasound 05/13/2025 10:5 0 PM EDT Narrative 05/13/2025 10:51 PM EDT [place] [address] Ultrasound Report Signed Patient: Charbel Delgado MR#: [id number] : 1970 Acct:[id number] Age/Sex: 55 / M ADM Date: 05/13/25 Loc: HO.ED Attending Dr: Ordering Physician: David Galvez PA-C Date of Service: 05/13/25 Procedure(s): US venous duplex LE LT Accession Number(s): [id number] cc: [facility]; David Galvez PA-C CLINICAL HISTORY: Swelling; Pain [...] in OV> 05/13/252250 DD/ 49 TD/TT: 05/13/252249 Grain Shipper: Procedure Note Donotuseinterpreter, Image - 05/13/[address] [address] Ultrasound Report Signed Patient: Rod DelgadoR#: [id number] : 1970Acct:[id number] Age/Sex: 55 / MADM Date: 05/13/25 Loc: HO.ED Attending Dr: Ordering Physician: David Galvez PA-C Date of Service: 05/13/25 Procedure(s): US venous duplex LE LT Accession Number(s): [id number] cc: [facility]; David Galvez PA-C CLINICAL HISTORY: Swelling; Pain [...] in OV> 05/13/252250 DD/ 49 TD/TT: 05/13/252249 Grain Shipper: [facility] External Provider IMG US PROCEDURES Final Result * Blood Culture (First) (04/30/2025 9:19 AM EDT) Blood Venous blood specimen / Unknown 04/30/2025 9:19 AM EDT 04/30/2025 9:24 AM EDT Comment:Blood Narrative [facility] - 05/05/2025 11:24 AM EDT Blood Culture (First) No growth after 5 days. Specimen Source: Blood Generic External Data Provider LAB MICROBIOLOGY - GENERAL ORDERABLES Final Result Performing Organization Address [facility] de Phone Number [facility] [address] [place] [phone] * Blood Culture (Second) (04/30/2025 9:19 AM EDT) Blood Venous blood specimen / Unknown 04/30/2025 9:19 AM EDT 04/30/2025 9:24 AM EDT Comment:Blood Narrative [facility] - 05/05/2025 11:24 AM EDT Blood Culture (Second) No growth after 5 days. Specimen Source: Blood Generic External Data Provider LAB MICROBIOLOGY - GENERAL ORDERABLES Final Result Performing Organization Address City/[facility] Co de Phone Number [facility] [address] [place] [address], [place] [phone] * (ABNORMAL) Sed Rate by Modified Matthewergren (04/30/2025 9:19 AM EDT) Erythrocyte Sedimentation Rate 26(H) 0 - 15 MM/HR [facility] Comment:Patients with polycy themia and many hemoglobin abnormalitiesmay have depressed sed rates whereas patients with anemiamay have elevated sed rates. 04/30/2025 9:19 AM EDT 04/30/2025 9:24 AM EDT us Generic External Data Provider LAB BLOOD ORDERAB LES Final Result [facility] [address] [place] [phone] [phone] from Last 3 Months Insurance N PARTIAL [id number] [place] [address] [address] [place] [id number] Care Teams Tech Ed/Woodshop Teacher Relationship Specialty Start Date End Date Missy Milner RN [address] [facility] [place] [address] Registered Nurse Family Medicine 04/23/25 Conor Vidal 04/23/25
--- OUTSIDE RECORDS SUMMARY | 2025-07-30 16:32 | XMS_ITS | Encounter Summary ---
Author Organization [employer] Address [address] [place] [address] [place] [address] Care Team Providers Care Founder And Chief Executive Officer Name Role Phone Missy Milner RN Unavailable [phone] Conor Vidal Unavailable Encounter Details Date Type Department Care Team ([facility] st Contact Info) Description 06/19/2025 Results Follow-Up [facility] [address] [place] [address] Provider, Generic External Data XR Chest 2 [...] on filedocumented in this encounter Care Teams Founder And Chief Executive Officer Relationship Specialty Start Date End Date Missy Milner RN [address] [place] [address] Registered Nurse Family Medicine 04/23/25 Conor Vidal 04/23/25 documented as of this encounter
--- OUTSIDE RECORDS SUMMARY | 2025-07-30 16:32 | XMS_ITS | Clinical Summary ---
Author Organization [facility] Address [address] [place] [address] Phone Care Team Providers Care Tie Fastener Name Role Phone [facility], Facility Primary Care Provider Pcp, Unknown [...] magnesia). Active monobasic and dibasic sodium phosphates (39958 ENEMA) 19-7 gram/[address] 1 [...] Patient presented with altered mental status from [facility] where he appeared more lethargic than [...] 2014 ZOSTER VACCINES (1 of 2) 2019 POTASSIUM LEVEL 01/04/2025 01/04/2024, 02/2024, 11/15/2023, Additional history exists INFLUENZA VACCINE (#1) 2025 COVID-19 VACCINE ( season) 2025 HEPATITIS C SCREENING Completed 01/04/2024 HIB [...] EST) SODIUM 137 133 - 146 mmol/L [facility] POTASSIUM 4.5 3.3 - 5.1 mmol/L [facility] CHLORIDE 105 96 - 108 mmol/L [facility] CO2 22 21 - 35 mmol/L [facility] BUN 14 6 - 19 mg/dL [facility] CREATININE 0.80 0.5 - 1.5 mg/dL [facility] GLUCOSE 104(H) 70 - 99 mg/dL [facility] ALBUMIN 4.1 3.9 - 4.8 g/dL [facility] TOTAL PROTEIN 8.1(H) 6.5 - 8.0 g/dL [facility] CALCIUM 10.4(H) 8.4 - 10.3 mg/dL [facility] ALKALINE PHOSPHATASE 118(H) 39 - 117 U/L [facility] TOTAL BILIRUBIN 0.6 0.0 - 1.2 mg/dL [facility] AST 25 0 - 37 U/L [facility] ALT 7 0 - 40 U/L [facility] GLOBULIN 4.0 1 - 4.8 g/dL [facility] EGFR 105 >59 mL/min/1.7 3m2 [facility] Comment:Estimated glomerular filtration rate calculated using the CKD-EPI refit equation. ANION GAP 15 10 - 20 mmol/L [facility] Blood 01/04/2024 9:22 AM EST 01/04/2024 9:53 AM EST Missy WALLACE LAB BLOOD ORDERABLES Fin al Result Performing Organization Address City/[facility]/ZIP Co de Phone Number [address] [address] * Hepatitis C antibody, qualitative (01/04/2024 9:22 AM EST) HCV NON-REACTIV E NON-REACTI VE [facility] Blood 01/04/2024 9:22 AM EST 01/04/2024 9:53 AM EST Missy WALLACE LAB BLOOD ORDERABLES Fin al Result Performing Organization Address [facility] Co de Phone Number [address] [phone] from Last 3 Months or Most Recently Relevant to Health Maintenance Insurance [facility] C3 ACO [facility] C3 ACO C3 ACO C3 ACO C3 ACO [place] [employer] [id number] [facility] C3 ACO [facility] C3 ACO Advance Directives For more information, please contact: [phone] (9AM - 5PM [facility], Monday-Monday) Documents on File Type Date Recorded 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 It is not the complete legal health record.[facility]
--- OUTSIDE RECORDS SUMMARY | 2025-07-30 16:32 | XMS_ITS | Encounter Summary ---
Author Organization [facility] Address [address] [place] [phone] Phone Care Team Providers Care Ballistic Expert Name Role Phone [facility], [facility] Primary Care Provider Pcp, Unknown Unavailable Unavailable Encounter Details Date Type Department Care Team (Late st Contact Info) Description 02/02/2024 Procedure Pass [facility] Endoscopy Admitting Dept Virtual Department [address] [place] [address] Social History Tobacco Use Types Packs/Day Years [...] on filedocumented in this encounter Care Teams Ballistic Expert Relationship Specialty Start Date End Date [facility] [address] [place] [phone] PCP - General 10/07/23 Pcp, Unknown 10/07/23 documented as of this encounter Additional Source Comments The information contained in this document represents components of the legal health record. It is not the complete legal health record.[facility]
--- OUTSIDE RECORDS SUMMARY | 2025-07-30 16:32 | XMS_ITS | Encounter Summary ---
Author Organization [facility] Address [address] [place] [address] Phone Care Team Providers Care Compliance Coordinator Name Role Phone [facility], [place] Primary Care Provider Pcp, Unknown Unavailable Unavailable Encounter Details Date Type Department Care Team (Late st Contact Info) Description 01/04/2024 Transcribe Orders [facility] [address] [place] [address] Missy Miranda PA [address] [place] [address] [email or web address] Need for hepatitis C screening test (Primary [...] EST) FERRITIN 168 30 - 400 ug/L [facility] Blood 01/04/2024 9:22 AM EST 01/04/2024 9:53 AM EST Missy WALLACE LAB BLOOD ORDERABLES Fin al Result Performing Organization Address City/[facility] Co de Phone Number [address] [address] * (ABNORMAL) PT-INR (01/04/2024 9:22 AM EST) [facility] PT 15.9(H) 10.2 - 12.9 sec [facility] INR 1.4(H) 0.9 - 1.1 [facility] Comment:Therapeutic range fo r oral Vitamin K antagonists: 2.0-3.5 Blood 01/04/2024 9:22 AM EST 01/04/2024 9:53 AM EST Missy WALLACE LAB BLOOD ORDERABLES Fin al Result Performing Organization Address City/[facility]/ZIP Co de Phone Number [address] [address] * Iron and iron binding capacity (01/04/2024 9:22 AM EST) IRON 81 45 - 160 ug/dL [facility] IRON BINDING CAPACITY 326 228 - 428 ug/dL [facility] TRANSFERRIN SATURAT. 25 20 - 55 % [facility] Blood 01/04/2024 9:22 AM EST 01/04/2024 9:53 AM EST Missy WALLACE LAB BLOOD ORDERABLES Fin al Result Performing Organization Address [facility] de Phone Number [address] [address] * Lipase (01/04/2024 9:22 AM EST) LIPASE 35 16 - 63 U/L [facility] Blood 01/04/2024 9:22 AM EST 01/04/2024 9:53 AM EST Missy WALLACE LAB BLOOD ORDERABLES Fin al Result Performing Organization Address [facility] de Phone Number [address] [address] * Hepatitis C antibody, qualitative (01/04/2024 9:22 AM EST) HCV NON-REACTIV E NON-REACTI VE [facility] Blood 01/04/2024 9:22 AM EST 01/04/2024 9:53 AM EST Missy WALLACE LAB BLOOD ORDERABLES Fin al Result Performing Organization Address [facility] de Phone Number [address] [address] * Hepatitis B surface antibody (01/04/2024 9:22 AM EST) HBV SURFACE ANTIBODY Negative [facility] Comment: Unvaccinated: Negative Vaccinated: Positive Blood 01/04/2024 9:22 AM EST 01/04/2024 9:53 AM EST Missy WALLACE LAB BLOOD ORDERABLES Fin al Result Performing Organization Address City/[facility]/ZIP Co de Phone Number [address] [address] * Hepatitis B surface antigen (01/04/2024 9:22 AM EST) HBV SURFACE ANTIGEN NON-REACTI VE NON-REACTI VE [facility] Blood 01/04/2024 9:22 AM EST 01/04/2024 9:53 AM EST Missy WALLACE LAB BLOOD ORDERABLES Fin al Result Performing Organization Address [facility] Co de Phone Number [address] [address] * Hepatitis B core antibody, total (01/04/2024 9:22 AM EST) HEP B CORE AB, TOT NON-REACTI VE NON-REACTI VE [facility] Blood 01/04/2024 9:22 AM EST 01/04/2024 9:53 AM EST Missy WALLACE LAB BLOOD ORDERABLES Fin al Result Performing Organization Address [facility] Co de Phone Number [address] [address] * HEPATITIS A ANTIBODY, TOTAL (01/04/2024 9:22 AM EST) HAV TOTAL AB NON-REACTI VE NON-REACTI VE [facility] Blood 01/04/2024 9:22 AM EST 01/04/2024 9:53 AM EST Missy WALLACE LAB BLOOD ORDERABLES Fin al Result Performing Organization Address [facility] Co de Phone Number [address] [address] * (ABNORMAL) GGT (Gamma glutamyl transferase) (01/04/2024 9:22 AM EST) GGT 54(H) 11 - 51 U/L [facility] Blood 01/04/2024 9:22 AM EST 01/04/2024 9:53 AM EST Missy WALLACE LAB BLOOD ORDERABLES Fin al Result [address] [address] * C-Reactive Protein (01/04/2024 9:22 AM EST) Pathologist [facility] C REACTIVE PROTEIN <3.0 0.0 - 4.0 mg/L [facility] Blood 01/04/2024 9:22 AM EST 01/04/2024 9:53 AM EST Missy WALLACE LAB BLOOD ORDERABLES Fin al Result Performing Organization Address City/[facility] Co de Phone Number [address] [address] * (ABNORMAL) Comprehensive metabolic panel (01/04/2024 9:22 AM EST) Pathologist [facility] SODIUM 137 133 - 146 mmol/L [facility] POTASSIUM 4.5 3.3 - 5.1 mmol/L [facility] CHLORIDE 105 96 - 108 mmol/L [facility] CO2 22 21 - 35 mmol/L [facility] BUN 14 6 - 19 mg/dL [facility] CREATININE 0.80 0.5 - 1.5 mg/dL [facility] GLUCOSE 104(H) 70 - 99 mg/dL [facility] ALBUMIN 4.1 3.9 - 4.8 g/dL [facility] TOTAL PROTEIN 8.1(H) 6.5 - 8.0 g/dL [facility] CALCIUM 10.4(H) 8.4 - 10.3 mg/dL [facility] ALKALINE PHOSPHATASE 118(H) 39 - 117 U/L [facility] TOTAL BILIRUBIN 0.6 0.0 - 1.2 mg/dL [facility] AST 25 0 - 37 U/L [facility] ALT 7 0 - 40 U/L [facility] GLOBULIN 4.0 1 - 4.8 g/dL [facility] EGFR 105 >59 mL/min/1.7 3m2 [facility] Comment:Estimated glomerular filtration rate calculated using the CKD-EPI refit equation. ANION GAP 15 10 - 20 mmol/L [facility] Blood 01/04/2024 9:22 AM EST 01/04/2024 9:53 AM EST us Missy WALLACE LAB BLOOD ORDERABLES Fin al Result Performing Organization Address City/State/[facility] Co de Phone Number [address] [address] * (ABNORMAL) CBC and differential (01/04/2024 9:22 AM EST) WBC 3.17(L) 4.00 - 11.00 K/uL [facility] RBC 3.41(L) 4.23 - 5.82 M/uL [facility] HGB 10.7(L) 13.4 - 17.5 g/dL [facility] HCT 33.8(L) 37.0 - 51.0 % [facility] PLT 64(L) 140 - 430 K/uL [facility] Comment:Consistent with prev ious result. MCV 99.1(H) 78.0 - 97.0 fL [facility] MCH 31.4 25.0 - 33.0 pg [facility] MCHC 31.7(L) 32.0 - 36.0 g/dL [facility] RDW 13.0 11.0 - 15.0 % [facility] MPV 13.2(H) 8.4 - 12.8 fl [facility] DIFF METHOD Auto [facility] NEUTS 57.2 43.0 - 75.0 % [facility] LYMPHS 24.9 18.2 - 47.4 % [facility] MONOS 12.0(H) 4.00 - 11.00 % [facility] EOS 4.7 0.0 - 8.0 % [facility] BASOS 0.9 0.0 - 2.0 % [facility] Granulocytes, immature (%) 0.3 0.0 - 0.9 % [facility] ABSOLUTE NEUTS 1.81 1.80 - 7.70 K/uL [facility] ABSOLUTE LYMPHS 0.79(L) 1.00 - 3.10 K/uL [facility] ABSOLUTE MONOS 0.38 0.20 - 0.80 K/uL [facility] ABSOLUTE EOS 0.15 0.00 - 0.80 K/uL [facility] ABSOLUTE BASOS 0.03 0.00 - 0.09 K/uL [facility] Granulocytes, immature 0.01 0.00 - 0.05 K/uL [facility] Blood 01/04/2024 9:22 AM EST 01/04/2024 9:53 AM EST Missy WALLACE LAB BLOOD ORDERABLES Fin al Result [address] [address] * (ABNORMAL) Immunoglobulin A (01/04/2024 9:22 AM EST) Pathologist [facility] IgA 436(H) 70 - 400 mg/dL [facility] Blood 01/04/2024 9:22 AM EST 01/04/2024 9:53 AM EST [facility] Nathaly Miranda MS LAB BLOOD ORDERABLES Fin al Result [address] [address] * Tissue transglutaminase IgA (01/04/2024 9:22 AM EST) TTG IGA ANTIBODY 1.9 <4.0 (Negative) U/mL [facility]PATH [address] Blood 01/04/2024 9:22 AM EST 01/04/2024 9:53 AM EST Missy WALLACE LAB BLOOD ORDERABLES Fin al Result [facility] [address] [place] [address] * Smooth Muscle Antibody (01/04/2024 9:22 AM EST) SMOOTH MUSCLE AB POSITIVE AT 1:20 [facility] Comment: Performing Physician, Max Jimenez M.D., [id number] Normal: Negative at 1:20 Blood 01/04/2024 9:22 AM EST 01/04/2024 9:53 AM EST Missy WALLACE LAB BLOOD ORDERABLES Fin al Result Performing Organization Address [facility] Co de Phone Number [address] [address] * Ceruloplasmin (01/04/2024 9:22 AM EST) CERULOPLASMIN 31 20 - 60 mg/dL [facility] Blood 01/04/2024 9:22 AM EST 01/04/2024 9:53 AM EST Missy WALLACE LAB BLOOD ORDERABLES Fin al Result Performing Organization Address [facility] Co de Phone Number [address] [address] * (ABNORMAL) Antinuclear antibody (JERMAIN) (01/04/2024 9:22 AM EST) JERMAIN SCREEN ON HEP 2 Positive(A ) Negative [facility] Comment:An JERMAIN Titer has bee n reflexed. The results will follow. Blood 01/04/2024 9:22 AM EST 01/04/2024 9:53 AM EST Missy WALLACE LAB BLOOD ORDERABLES Fin al Result Performing Organization Address City/[facility] Co de Phone Number MENDOZA BISMARK [address] [address] * Anti-Mitochondrial Antibody (AMA) (01/04/2024 9:22 AM EST) MITOCHONDRIAL AB NEGATIVE AT 1:20 [facility] Comment: Performing Physician, Max Jimenez M.D., [id number] Normal: Negative at 1:20 Blood 01/04/2024 9:22 AM EST 01/04/2024 9:53 AM EST Missy WALLACE LAB BLOOD ORDERABLES Fin al Result [address] [address] * Amylase (01/04/2024 9:22 AM EST) Pathologist [facility] AMYLASE 86 28 - 100 U/L [facility] Blood 01/04/2024 9:22 AM EST 01/04/2024 9:53 AM EST Missy WALLACE LAB BLOOD ORDERABLES Fin al Result Performing Organization Address City/[facility]/ZIP Co de Phone Number [address] [address] * AFP (non-maternal specimens) (01/04/2024 9:22 AM EST) Pathologist [facility] AFP (NON-MATERNAL) 4.7 <7.9 ng/mL [facility] Comment: Test Methodology Filipe [id number] Patient results determined by assays using different manufacturers or methods may not be comparable. Blood 01/04/2024 9:22 AM EST 01/04/2024 9:53 AM EST Missy WALLACE LAB BLOOD ORDERABLES Fin al Result Performing Organization Address City/[facility]/ZIP Co de Phone Number [address] [address] * Odwlq-9-fffdulixgok phenotyping (01/04/2024 9:22 AM EST) ALPHA 1 ANTITRYPSIN 173 100 - 190 mg/dL [facility] [address] Comment: (NOTE) ADDITIONAL INFORMATION Method: Nephelometry A1A PHENOTYPE MM bands [facility] [address] Comment: (NOTE) A single M isoform is detected. In the context of a normal fjkfc-8-ibomoceidgq concentration, this is consistent with an MM phenotype. ADDITIONAL INFORMATION Method: Isoelectric Focusing, This assay identifies the phenotype of the circulating mtubf-9-kmwnwcoerwf (A1A) protein. If the patient is on replacement therapy or has been recently transfused, the phenotype will detect patient and replacement or transfused plasma A1A protein. This test also cannot detect a null allele which could be responsible for an A1A deficiency. Blood 01/04/2024 9:22 AM EST 01/04/2024 9:53 AM EST Missy WALLACE LAB BLOOD ORDERABLES Fin al Result [facility] [address] [place] [address] documented in this encounter Visit Diagnoses Diagnosis Need for hepatitis C screening test- Primary Special screening examination for other specified viral diseases Hepatic cirrhosis, unspecified hepatic cirrhosis type, unspecified whether ascites present Esophageal varices in alcoholic cirrhosis Esophageal varices without mention of bleeding documented in this encounter Care Teams Compliance Coordinator Relationship Specialty Start Date End Date [facility] [address] [place] [address] PCP - General 10/07/23 Pcp, Unknown 10/07/23 documented as of this encounter Additional Source Comments The information contained in this document represents components of the legal health record. It is not the complete legal health record.[facility]
--- OUTSIDE RECORDS SUMMARY | 2025-07-30 16:32 | XMS_ITS | Encounter Summary ---
Author Organization [facility] Address [address] [facility] [address] [place] [address] Phone Care Team Providers Care Geothermal System Installer Name Role Phone [facility], [facility] Primary Care Provider Pcp, Unknown Unavailable Unavailable Encounter Details Date Type Department Care Team ([facility] st Contact Info) Description 10/31/2023 Procedure Pass [facility] Endoscopy Admitting Dept Virtual Department [address] [place] [id number] Social History Tobacco Use Types Packs/Day Years [...] on filedocumented in this encounter Care Teams Geothermal System Installer Relationship Specialty Start Date End Date [facility] [address] [place] [address] PCP - General 10/07/23 Pcp, Unknown 10/07/23 documented as of this encounter Additional Source Comments The information contained in this document represents components of the legal health record. It is not the complete legal health record.[facility]
[2025-07-30 21:06] VITALS: BP 94/50; PULSE 70; RESP 14; TEMP 36.9; O2SAT 93
== END 2025-07-30 21:10 | disposition home or self-care (01) ==
PROVIDERS: Emergency Provider Emergency Medicine
DX: M79.672 Pain in left foot (principal); F10.129 Alcohol abuse with intoxication, unspecified; Y90.8 Blood alcohol level of 240 mg/100 ml or more
CPT/HCPCS: 99284

== ENCOUNTER 2025-07-31 19:27 | Emergency (ER) | payer MEDICAID, SELFPAY ==
[2025-07-31 18:35] VITALS: BP 152/88; PULSE 78; O2SAT 98
[2025-07-31 18:47] VITALS: BP 131/77; PULSE 79; TEMP 36.8; O2SAT 93
--- NOTE | 2025-07-31 18:59 | ED_ITS ---
HPI - General Adult General Chief complaint: ETOH/Substance Use Stated complaint: ETOH L leg pain Source: patient Mode of arrival: ambulatory Limitations: no limitations History of Present Illness ED Provider: Dexter Toledo HPI narrative: 55 yold male with pmh of alcohol abuse presents to the ED for drinking alcohol and chronic left foot pain due to extensive walking. patient was found drinking at a liquor store by [employer] and the called EMS to bring patient to the ED. [employer] denies there was any trauma. patient denies any trauma. patient states chronic left foot pain. Patient does not want rehab Related Data Previous Rx's ?Medication ?Instructions ?Recorded furosemide 40 mg tablet (Lasix) 40 mg PO DAILY #30 tab s 07/16/25 levofloxacin 500 mg tablet 500 mg PO DAILY #2 tabs 02/04 Allergies Allergy/AdvReac Type Severity Reaction Status Date / Time No Known Allergies (No Known Allergy Verified 08/02/25 00:04 Allergies*) Review of Systems Review of Systems: chronic left foot pain Yes all other systems are reviewed and are negative PMFSH Past Medical History Medical History Alcohol use disorder CHF (congestive heart failure) Alcohol abuse Acute hypoxemic respiratory failure Anemia Pneumonia Alcohol withdrawal syndrome Pancytopenia Alcohol abuse Thrombocytopenia Esophageal varices Acute on chronic anemia Alcoholic liver disease Aspiration pneumonia Thrombocytopenia Malnutrition CHF (congestive heart failure) Anemia Hypomagnesemia Cirrhosis Thrombocytopenia Acute on chronic anemia CHF (congestive heart failure) Anemia Alcohol abuse Surgical History No history of previous surgery Social History Social History Household Members: None Household Members Other:: homeless Housing: Other Housing Other:: homeless Do you presently have visiting nurse or other home services: No Unable to assess alcohol history related to: Unable to respond Alcohol intake: current Alcohol intake frequency: 3 or more drinks per day Alcohol type: beer and hard liquor Comment: pt refuse to have staff remain in [place] Patient Tobacco Use Status: Former Tobacco user Tobacco use type: Cigarette Second Hand Smoke Exposure: No Advance Directives: Yes Advance Directives on File: Yes Advance Directives Date on File: 07/13/23 service: No Physical Exam ED Vital Signs: Vital Signs - 24 hr 07/31/25 18:47 07/31/25 22:07 07/31/25 23:54 Temperature 98.2 F 98.2 F 97.6 F Pulse Rate 79 76 72 Respiratory Rate 18 16 Blood Pressure 131/77 95/51 L 94/53 L Pulse Oximetry 93 92 94 Oxygen Delivery Method Room Air Room Air Nasal Cannula Room Air Oxygen Flow Rate 2 08/01/25 06:31 08/01/25 14:30 Temperature 98.1 F 97.9 F Pulse Rate 89 84 Respiratory Rate 16 18 Blood Pressure 116/54 L 131/60 Pulse Oximetry 91 L 92 Oxygen Delivery Method Nasal Cannula Room Air Oxygen Flow Rate 2 Const General: cooperative, healthy appearing, comfortable, no acute distress, well developed, alert, awake and Physically active Orientation/consciousness: patient oriented x3 [facility] Head: Yes normal to inspection, Yes No palpable skull fracture present, Yes normocephalic and Yes atraumatic Eyes General: appearance normal, both eyes and all related structures Neck Neck: Yes normal visual inspection, Yes full ROM, Yes no lymphadenopathy, Yes no meningeal signs, Yes trachea midline, Yes supple, No anterior neck swelling and No tender Chest Chest palpation & inspection: normal inspection of the chest and normal palpation of entire chest wall Resp Effort & Inspection: normal respiratory effort and able to speak in complete sentences Auscultation: clear to auscultation bilaterally Cardio Jugular venous distension: no JVD Heart sounds: S1 normal heart sound present and S2 normal heart sound present GI Inspection: Yes normal to inspection Palpation (GI): Soft to palpation, not firm, nontender, no guarding and not rigid General: Yes no CVA tenderness Back/Spine/Pelvis Back: no CVA tenderness and No back tenderness Skin General skin exam: no rashes or lesions noted, elasticity normal and turgor normal Neuro General: patient oriented x3, gait normal, tone normal, moves all extremities, Normal light touch and pain sensation, no meningeal signs, no focal motor deficits, CN's II-XI intact bilaterally and normal sensation to monofilament Extrem General: Yes normal to inspection, Yes full ROM and Yes capillary refill normal Psych Appearance: grossly normal, well kempt and not disheveled Course Course Course Narrative: Time: 14:33 Date: 08/01/25 Provider: Alley Del Rosario DO Physician observation ended at 233pm. He wants to leave, no SUDE, steady gait, eating food, VS stable. Medical Decision Making Medical Decision Making [facility] Narrative: 55-year-old male presents to ED or alcohol abuse and chronic foot pain. Patient has no new trauma. Patient does not want any detox. Patient will be evaluated in the ED until sober. 11:56pm: patient is not in distress. Patient sleeping in bed. SIGNED OUT TO LA JOSEPH Differential Diagnosis Differential Diagnoses: The differential diagnosis associated with the presentation includes (Alcohol on breath) Admission/Observation Consideration of admission/observation: Escalation of care including admission/ observation considered Lab Data [facility] Lab Attestation statement: I reviewed the patient's lab results. Independent Historian Clinical information obtained from an independent historian. History obtained from or confirmed by: Other (PATIENT) Prescription Management I considered prescription management with: Pain Medication Discharge Plan Discharge Clinical Impression: Alcohol use, Chronic pain in left foot Patient Disposition: Home, Self-Care Instructions: Alcohol Use Disorder (ED) Additional Instructions: Recommend follow up with the primary care provider. Return to the ED immediately for any chest pain, abdominal. Pain, shortness of breath, chest pain, leg pain, foot pain, redness, swelling, ecchymosis, fever, chills, or any other concerning symptoms. Alcohol use disorder You were seen in the Emergency Department today for treatment of alcohol use disorder.? You may have been given medications to help with your withdrawal symptoms.? Please do not drink alcohol with them. This is very dangerous and can cause respiratory depression or other adverse reactions depending on the medication. If you would like to cut down or stop your alcohol use please consider calling our outpatient Addiction Treatment office:? [facility] (M-F [id number]) [address] [place] [address] You have also been given a list of treatment providers in the area that can assist as well.? If you experience seizures, vomiting blood, black stools, falls, severe headache, chest pain, fevers, trouble breathing, hallucinations or any other concerns you need to call 911 or seek immediate care. Please stay hydrated. Prescriptions: No Action levofloxacin 500 mg tablet 500 mg PO DAILY Qty: 2 0RF furosemide [Lasix] 40 mg tablet 40 mg PO DAILY Qty: 30 0RF Interventions: ED Discharge Assessment Last Done: 08/01/25 14:48 Discharge Date/Time: 08/01/25 15:20 Print Language: Togolese
--- OUTSIDE RECORDS SUMMARY | 2025-07-31 19:47 | XMS_ITS | Encounter Summary ---
Author Organization [facility] Address [address] [place] [address] [place] [address] Care Team Providers Care Field Marketing Specialist Name Role Phone Missy Milner RN Unavailable [phone] Conor Vidal Unavailable Encounter Details Date Type Department Care Team (Latest Contact Info) Description 06/19/2025 Results Follow-Up [facility] Information Management [address] [place] [address] External Provider, [facility] [place] Chest w/ Contrast Social History [...] on filedocumented in this encounter Care Teams Field Marketing Specialist Relationship Specialty Start Date End Date Missy Milner RN [address] [place] [address] Registered Nurse Family Medicine 04/23/25 Conor Vidal 04/23/25 documented as of this encounter
--- OUTSIDE RECORDS SUMMARY | 2025-07-31 19:47 | XMS_ITS | Encounter Summary ---
Author Organization [facility] Address [address] [facility] [address] [place] [address] Phone Care Team Providers Care Plunket Nurse Name Role Phone [facility], [facility] Primary Care Provider Pcp, Unknown Unavailable Unavailable Encounter Details Date Type Department Care Team (Late st Contact Info) Description 01/04/2024 Transcribe Orders [facility] [address] [place] [phone] Missy Miranda PA [address] [place] [phone] [email or web address] Need for hepatitis C screening test (Primary [...] EST) FERRITIN 168 30 - 400 ug/L [facility] Blood 01/04/2024 9:22 AM EST 01/04/2024 9:53 AM EST Missy WALLACE LAB BLOOD ORDERABLES Fin al Result Performing Organization Address City/[facility] Co de Phone Number [address] [address] * (ABNORMAL) PT-INR (01/04/2024 9:22 AM EST) [facility] PT 15.9(H) 10.2 - 12.9 sec [facility] INR 1.4(H) 0.9 - 1.1 [facility] Comment:Therapeutic range fo r oral Vitamin K antagonists: 2.0-3.5 Blood 01/04/2024 9:22 AM EST 01/04/2024 9:53 AM EST Missy WALLACE LAB BLOOD ORDERABLES Fin al Result Performing Organization Address City/[facility]/ZIP Co de Phone Number [address] [address] * Iron and iron binding capacity (01/04/2024 9:22 AM EST) IRON 81 45 - 160 ug/dL [facility] IRON BINDING CAPACITY 326 228 - 428 ug/dL [facility] TRANSFERRIN SATURAT. 25 20 - 55 % [facility] Blood 01/04/2024 9:22 AM EST 01/04/2024 9:53 AM EST Missy WALLACE LAB BLOOD ORDERABLES Fin al Result Performing Organization Address [facility] de Phone Number [address] [address] * Lipase (01/04/2024 9:22 AM EST) LIPASE 35 16 - 63 U/L [facility] Blood 01/04/2024 9:22 AM EST 01/04/2024 9:53 AM EST Missy WALLACE LAB BLOOD ORDERABLES Fin al Result Performing Organization Address [facility] de Phone Number [address] [address] * Hepatitis C antibody, qualitative (01/04/2024 9:22 AM EST) HCV NON-REACTIV E NON-REACTI VE [facility] Blood 01/04/2024 9:22 AM EST 01/04/2024 9:53 AM EST Missy WALLACE LAB BLOOD ORDERABLES Fin al Result Performing Organization Address [facility] de Phone Number [address] [address] * Hepatitis B surface antibody (01/04/2024 9:22 AM EST) HBV SURFACE ANTIBODY Negative [facility] Comment: Unvaccinated: Negative Vaccinated: Positive Blood 01/04/2024 9:22 AM EST 01/04/2024 9:53 AM EST Missy WALLACE LAB BLOOD ORDERABLES Fin al Result Performing Organization Address City/[facility]/ZIP Co de Phone Number [address] [address] * Hepatitis B surface antigen (01/04/2024 9:22 AM EST) HBV SURFACE ANTIGEN NON-REACTI VE NON-REACTI VE [facility] Blood 01/04/2024 9:22 AM EST 01/04/2024 9:53 AM EST Missy WALLACE LAB BLOOD ORDERABLES Fin al Result Performing Organization Address [facility] Co de Phone Number [address] [address] * Hepatitis B core antibody, total (01/04/2024 9:22 AM EST) HEP B CORE AB, TOT NON-REACTI VE NON-REACTI VE [facility] Blood 01/04/2024 9:22 AM EST 01/04/2024 9:53 AM EST Missy WALLACE LAB BLOOD ORDERABLES Fin al Result Performing Organization Address [facility] Co de Phone Number [address] [address] * HEPATITIS A ANTIBODY, TOTAL (01/04/2024 9:22 AM EST) HAV TOTAL AB NON-REACTI VE NON-REACTI VE [facility] Blood 01/04/2024 9:22 AM EST 01/04/2024 9:53 AM EST Missy WALLACE LAB BLOOD ORDERABLES Fin al Result Performing Organization Address [facility] Co de Phone Number [address] [address] * (ABNORMAL) GGT (Gamma glutamyl transferase) (01/04/2024 9:22 AM EST) GGT 54(H) 11 - 51 U/L [facility] Blood 01/04/2024 9:22 AM EST 01/04/2024 9:53 AM EST Missy WALLACE LAB BLOOD ORDERABLES Fin al Result [address] [address] * C-Reactive Protein (01/04/2024 9:22 AM EST) Pathologist [facility] C REACTIVE PROTEIN <3.0 0.0 - 4.0 mg/L [facility] Blood 01/04/2024 9:22 AM EST 01/04/2024 9:53 AM EST Missy WALLACE LAB BLOOD ORDERABLES Fin al Result Performing Organization Address City/[facility] Co de Phone Number [address] [address] * (ABNORMAL) Comprehensive metabolic panel (01/04/2024 9:22 AM EST) Pathologist [facility] SODIUM 137 133 - 146 mmol/L [facility] POTASSIUM 4.5 3.3 - 5.1 mmol/L [facility] CHLORIDE 105 96 - 108 mmol/L [facility] CO2 22 21 - 35 mmol/L [facility] BUN 14 6 - 19 mg/dL [facility] CREATININE 0.80 0.5 - 1.5 mg/dL [facility] GLUCOSE 104(H) 70 - 99 mg/dL [facility] ALBUMIN 4.1 3.9 - 4.8 g/dL [facility] TOTAL PROTEIN 8.1(H) 6.5 - 8.0 g/dL [facility] CALCIUM 10.4(H) 8.4 - 10.3 mg/dL [facility] ALKALINE PHOSPHATASE 118(H) 39 - 117 U/L [facility] TOTAL BILIRUBIN 0.6 0.0 - 1.2 mg/dL [facility] AST 25 0 - 37 U/L [facility] ALT 7 0 - 40 U/L [facility] GLOBULIN 4.0 1 - 4.8 g/dL [facility] EGFR 105 >59 mL/min/1.7 3m2 [facility] Comment:Estimated glomerular filtration rate calculated using the CKD-EPI refit equation. ANION GAP 15 10 - 20 mmol/L [facility] Blood 01/04/2024 9:22 AM EST 01/04/2024 9:53 AM EST us Missy WALLACE LAB BLOOD ORDERABLES Fin al Result Performing Organization Address City/State/[facility] Co de Phone Number [address] [address] * (ABNORMAL) CBC and differential (01/04/2024 9:22 AM EST) WBC 3.17(L) 4.00 - 11.00 K/uL [facility] RBC 3.41(L) 4.23 - 5.82 M/uL [facility] HGB 10.7(L) 13.4 - 17.5 g/dL [facility] HCT 33.8(L) 37.0 - 51.0 % [facility] PLT 64(L) 140 - 430 K/uL [facility] Comment:Consistent with prev ious result. MCV 99.1(H) 78.0 - 97.0 fL [facility] MCH 31.4 25.0 - 33.0 pg [facility] MCHC 31.7(L) 32.0 - 36.0 g/dL [facility] RDW 13.0 11.0 - 15.0 % [facility] MPV 13.2(H) 8.4 - 12.8 fl [facility] DIFF METHOD Auto [facility] NEUTS 57.2 43.0 - 75.0 % [facility] LYMPHS 24.9 18.2 - 47.4 % [facility] MONOS 12.0(H) 4.00 - 11.00 % [facility] EOS 4.7 0.0 - 8.0 % [facility] BASOS 0.9 0.0 - 2.0 % [facility] Granulocytes, immature (%) 0.3 0.0 - 0.9 % [facility] ABSOLUTE NEUTS 1.81 1.80 - 7.70 K/uL [facility] ABSOLUTE LYMPHS 0.79(L) 1.00 - 3.10 K/uL [facility] ABSOLUTE MONOS 0.38 0.20 - 0.80 K/uL [facility] ABSOLUTE EOS 0.15 0.00 - 0.80 K/uL [facility] ABSOLUTE BASOS 0.03 0.00 - 0.09 K/uL [facility] Granulocytes, immature 0.01 0.00 - 0.05 K/uL [facility] Blood 01/04/2024 9:22 AM EST 01/04/2024 9:53 AM EST Missy WALLACE LAB BLOOD ORDERABLES Fin al Result [address] [address] * (ABNORMAL) Immunoglobulin A (01/04/2024 9:22 AM EST) Pathologist [facility] IgA 436(H) 70 - 400 mg/dL [facility] Blood 01/04/2024 9:22 AM EST 01/04/2024 9:53 AM EST [facility] Nathaly Miranda [place] LAB BLOOD ORDERABLES Fin al Result [address] [address] * Tissue transglutaminase IgA (01/04/2024 9:22 AM EST) TTG IGA ANTIBODY 1.9 <4.0 (Negative) U/mL [facility] [address] Blood 01/04/2024 9:22 AM EST 01/04/2024 9:53 AM EST Missy WALLACE LAB BLOOD ORDERABLES Fin al Result [facility] [address] [place] [address] * Smooth Muscle Antibody (01/04/2024 9:22 AM EST) SMOOTH MUSCLE AB POSITIVE AT 1:20 [facility] Comment: Performing Physician, Max Jimenez M.D., [id number] Normal: Negative at 1:20 Blood 01/04/2024 9:22 AM EST 01/04/2024 9:53 AM EST Missy WALLACE LAB BLOOD ORDERABLES Fin al Result Performing Organization Address [facility] Co de Phone Number [address] [address] * Ceruloplasmin (01/04/2024 9:22 AM EST) CERULOPLASMIN 31 20 - 60 mg/dL [facility] Blood 01/04/2024 9:22 AM EST 01/04/2024 9:53 AM EST Missy WALLACE LAB BLOOD ORDERABLES Fin al Result Performing Organization Address [facility] Co de Phone Number [address] [address] * (ABNORMAL) Antinuclear antibody (JERMAIN) (01/04/2024 9:22 AM EST) JERMAIN SCREEN ON HEP 2 Positive(A ) Negative [facility] Comment:An JERMAIN Titer has bee n reflexed. The results will follow. Blood 01/04/2024 9:22 AM EST 01/04/2024 9:53 AM EST Missy WALLACE LAB BLOOD ORDERABLES Fin al Result Performing Organization Address City/[facility] Co de Phone Number MENDOZA BISMARK [address] [address] * Anti-Mitochondrial Antibody (AMA) (01/04/2024 9:22 AM EST) MITOCHONDRIAL AB NEGATIVE AT 1:20 [facility] Comment: Performing Physician, Max Jimenez M.D., [id number] Normal: Negative at 1:20 Blood 01/04/2024 9:22 AM EST 01/04/2024 9:53 AM EST Missy WALLACE LAB BLOOD ORDERABLES Fin al Result [address] [address] * Amylase (01/04/2024 9:22 AM EST) Pathologist [facility] AMYLASE 86 28 - 100 U/L [facility] Blood 01/04/2024 9:22 AM EST 01/04/2024 9:53 AM EST Missy WALLACE LAB BLOOD ORDERABLES Fin al Result Performing Organization Address City/[facility]/ZIP Co de Phone Number [address] [address] * AFP (non-maternal specimens) (01/04/2024 9:22 AM EST) Pathologist [facility] AFP (NON-MATERNAL) 4.7 <7.9 ng/mL [facility] Comment: Test Methodology Filipe [id number] Patient results determined by assays using different manufacturers or methods may not be comparable. Blood 01/04/2024 9:22 AM EST 01/04/2024 9:53 AM EST Missy WALLACE LAB BLOOD ORDERABLES Fin al Result Performing Organization Address City/[facility]/ZIP Co de Phone Number [address] [address] * Vtmyx-7-mqhdafxkqfy phenotyping (01/04/2024 9:22 AM EST) ALPHA 1 ANTITRYPSIN 173 100 - 190 mg/dL [facility] [address] Comment: (NOTE) ADDITIONAL INFORMATION Method: Nephelometry A1A PHENOTYPE MM bands [facility] [address] Comment: (NOTE) A single M isoform is detected. In the context of a normal mbwut-3-dcugysztjxf concentration, this is consistent with an MM phenotype. ADDITIONAL INFORMATION Method: Isoelectric Focusing, This assay identifies the phenotype of the circulating udype-6-lzpfwbpmbot (A1A) protein. If the patient is on replacement therapy or has been recently transfused, the phenotype will detect patient and replacement or transfused plasma A1A protein. This test also cannot detect a null allele which could be responsible for an A1A deficiency. Blood 01/04/2024 9:22 AM EST 01/04/2024 9:53 AM EST Missy WALLACE LAB BLOOD ORDERABLES Fin al Result [facility] [address] [place] [address] documented in this encounter Visit Diagnoses Diagnosis Need for hepatitis C screening test- Primary Special screening examination for other specified viral diseases Hepatic cirrhosis, unspecified hepatic cirrhosis type, unspecified whether ascites present Esophageal varices in alcoholic cirrhosis Esophageal varices without mention of bleeding documented in this encounter Care Teams Plunket Nurse Relationship Specialty Start Date End [facility] [address] [place] [address] PCP - General 10/07/23 Pcp, Unknown 10/07/23 documented as of this encounter Additional Source Comments The information contained in this document represents components of the legal health record. It is not the complete legal health record.[facility]
--- OUTSIDE RECORDS SUMMARY | 2025-07-31 19:47 | XMS_ITS | Encounter Summary ---
Author Organization [facility] Address [address] [facility] [address] [place] [address] Phone Care Team Providers Care Solid Waste Landfill Technician Name Role Phone Elbert Hayward MD Primary Care Provider [facility], [facility] Primary Care Provider Pcp, Unknown Unavailable Unavailable Encounter Details Date Type Department Care Team (Late st Contact Info) Description 10/06/2023 Procedure Pass [facility], Ct Scan - [address] [address] Social History Tobacco Use Types Packs/Day Years [...] on filedocumented in this encounter Care Teams Solid Waste Landfill Technician Relationship Specialty Start Date End Date Elbert Hayward MD PCP - General 05/13/14 10/06/23 [facility], MD Marya [address] [place] [address] PCP - General 10/07/23 Pcp, Unknown 10/07/23 documented as of this encounter Additional Source Comments The information contained in this document represents components of the legal health record. It is not the complete legal health record.[facility]
--- OUTSIDE RECORDS SUMMARY | 2025-07-31 19:47 | XMS_ITS | Encounter Summary ---
Author Organization [employer] Address [address] [place] [address] [place] [address] Care Team Providers Care Pumper Hand Name Role Phone Missy Milner RN Unavailable [phone] Conor Vidal Unavailable Encounter Details Date Type Department Care Team ([facility] st Contact Info) Description 06/09/2025 Results Follow-Up [facility] [address] [place] [address] Provider, Generic External Data XR Chest 1 [...] on filedocumented in this encounter Care Teams Pumper Hand Relationship Specialty Start Date End Date Missy Milner RN [address] [place] [address] Registered Nurse Family Medicine 04/23/25 Conor Vidal 04/23/25 documented as of this encounter
--- OUTSIDE RECORDS SUMMARY | 2025-07-31 19:47 | XMS_ITS ---
Author Organization [employer] Address [address] [place] [address] 7[address] [place] [address] Care Team Providers Care Director Cardiovascular Name Role Phone Missy Milner RN Unavailable [phone] oCnor Vidal Unavailable CM Complex Status:Outreach In Progress (Enrolling) Start date:04/23/2025 Enrollment reason:ADT Feed Overview ADT-admitted [facility] 04/22/25 Case Team Name Relationship Phone Missy Milner RN(Responsible Staff) Registered Nurse [phone] Continued Care and Services Coordination
--- OUTSIDE RECORDS SUMMARY | 2025-07-31 19:47 | XMS_ITS | Encounter Summary ---
Author Organization [facility] Address [address] [place] [address] Phone Care Team Providers Care Boat Outfitter Name Role Phone [facility], [place] Primary Care Provider Pcp, Unknown Unavailable Unavailable Encounter Details Date Type Department Care Team ([facility] st Contact Info) Description 10/31/2023 Procedure Pass [facility] Endoscopy Admitting Dept Virtual Department [address] [place] [phone] Social History Tobacco Use Types Packs/Day Years [...] on filedocumented in this encounter Care Teams Boat Outfitter Relationship Specialty Start Date End Date [facility], Rust[facility] [address] [place] [address] PCP - General 10/07/23 Pcp, Unknown 10/07/23 documented as of this encounter Additional Source Comments The information contained in this document represents components of the legal health record. It is not the complete legal health record.[facility]
--- OUTSIDE RECORDS SUMMARY | 2025-07-31 19:47 | XMS_ITS | Clinical Summary ---
Author Organization [facility] Address [address] [place] [address] Phone Care Team Providers Care Orthopedically Impaired Teacher Name Role Phone [facility], [facility] Primary Care Provider Pcp, Unknown Unavailable [...] magnesia). Active monobasic and dibasic sodium phosphates (46801 ENEMA) 19-7 gram/[address] 1 [...] Patient presented with altered mental status from [facility] where he appeared more lethargic [...] EST) SODIUM 137 133 - 146 mmol/L [facility] POTASSIUM 4.5 3.3 - 5.1 mmol/L [facility] CHLORIDE 105 96 - 108 mmol/L [facility] CO2 22 21 - 35 mmol/L [facility] BUN 14 6 - 19 mg/dL [facility] CREATININE 0.80 0.5 - 1.5 mg/dL [facility] GLUCOSE 104(H) 70 - 99 mg/dL [facility] ALBUMIN 4.1 3.9 - 4.8 g/dL [facility] TOTAL PROTEIN 8.1(H) 6.5 - 8.0 g/dL [facility] CALCIUM 10.4(H) 8.4 - 10.3 mg/dL [facility] ALKALINE PHOSPHATASE 118(H) 39 - 117 U/L [facility] TOTAL BILIRUBIN 0.6 0.0 - 1.2 mg/dL [facility] AST 25 0 - 37 U/L [facility] ALT 7 0 - 40 U/L [facility] GLOBULIN 4.0 1 - 4.8 g/dL [facility] EGFR 105 >59 mL/min/1.7 3m2 [facility] Comment:Estimated glomerular filtration rate calculated using the CKD-EPI refit equation. ANION GAP 15 10 - 20 mmol/L [facility] Blood 01/04/2024 9:22 AM EST 01/04/2024 9:53 AM EST Missy WALLACE LAB BLOOD ORDERABLES Fin al Result Performing Organization Address City/[facility]/ZIP Co de Phone Number [address] [address] * Hepatitis C antibody, qualitative (01/04/2024 9:22 AM EST) HCV NON-REACTIV E NON-REACTI VE [facility] Blood 01/04/2024 9:22 AM EST 01/04/2024 9:53 AM EST Missy WALLACE LAB BLOOD ORDERABLES Fin al Result Performing Organization Address [facility] Co de Phone Number [address] [address] from Last 3 Months or Most Recently Relevant to Health Maintenance Insurance [facility] C3 ACO [facility] C3 ACO C3 ACO C3 ACO C3 [employer] [id number] [facility] C3 ACO [facility] C3 ACO Advance Directives For more information, please contact: [phone] (9AM - 5PM [facility], Monday-Monday) Documents on File Type Date Recorded Patient 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 It is not the complete legal health record.[facility]
--- OUTSIDE RECORDS SUMMARY | 2025-07-31 19:47 | XMS_ITS ---
Author Organization [employer] Address [address] [place] [address] [address] [place] [address] Care Team Providers Care Scrap Sawyer Name Role Phone Missy Milner RN Unavailable [phone] Conor Vidal Unavailable [facility] Complex Status:Outreach In Progress (Enrolling) Start date:04/23/2025 Enrollment reason:ADT Feed Overview ADT-admitted [facility] 04/22/25 Case Team Name Relationship Phone Conor Vidal(Responsible Staff) [phone] Continued Care and Services Coordination
--- OUTSIDE RECORDS SUMMARY | 2025-07-31 19:47 | XMS_ITS | Encounter Summary ---
Author Organization [facility] Address [address] [place] [address] Phone Care Team Providers Care Repair Specialist Name Role Phone [facility], [facility] Primary Care Provider Pcp, Unknown Unavailable Unavailable Encounter Details Date Type Department Care Team (Late st Contact Info) Description 02/02/2024 Procedure Pass [facility] Endoscopy Admitting Dept Virtual Department [address] [place] [address] Social History Tobacco Use Types Packs/Day Years [...] on filedocumented in this encounter Care Teams Repair Specialist Relationship Specialty Start Date End Date [facility] MD [address] [place] [address] PCP - General 10/07/23 Pcp, Unknown 10/07/23 documented as of this encounter Additional Source Comments The information contained in this document represents components of the legal health record. It is not the complete legal health record.[facility]
--- OUTSIDE RECORDS SUMMARY | 2025-07-31 19:47 | XMS_ITS | Clinical Summary ---
Author Organization [employer] Address [address] [place] [address] 7t [place] [address] Care Team Providers Care Geopolitics Teacher Name Role Phone Missy Milner RN Unavailable [phone] Young Conor Unavailable Allergies No known [...] Department Care Team Description 07/21/2025 Patient Outreach [facility] MED[facility] [address] [place] [address] Conor Vidal 07/08/2025 Patient Outreach [facility] MED & PEDS [address] [place], [place] [phone] Missy Milner, LAURA 07/07/2025 Telephone [facility] [address] [place] [address] Mihaela Zhong, LAURA Needs EPIC MANAGER Appt 07/06/2025 Orders Only GENERIC EXTERNAL DATA DEPARTMENT Provider, Generic External Data 07/02/2025 Orders Only [facility] External Provider, [facility] 07/01/2025 Patient Outreach [facility] [address] [place] [address] Missy Milner, LAURA Care Coordination (C3CM/CHW Conor Vidal, TC #5 initial outreach attempt_lvm) 06/19/2025 Results Follow-Up [facility] [address] [place] [address] Provider, Generic External Data XR Chest 2 Views 06/19/2025 Results Follow-Up [facility] [address] [place], [place] [phone] External Provider, [facility] CT Chest w/ Contrast 06/19/2025 Orders Only [facility] External Provider, [facility] 06/18/2025 Orders Only GENERIC EXTERNAL DATA DEPARTMENT Provider, Generic External Data 06/11/2025 Travel 06/09/2025 Results Follow-Up [facility] [address] [place], [place] [phone] Provider, Generic External Data XR Chest 1 View 06/08/2025 Orders Only GENERIC EXTERNAL DATA DEPARTMENT Provider, Generic External Data 06/05/2025 Orders Only GENERIC EXTERNAL DATA DEPARTMENT Provider, Generic External Data 05/30/2025 Patient Outreach [facility] [address] [place] [phone] Missy Milner RN Care Coordination (C3CM/CHW Conor Vidal, TC #4 Initial outreach attempt_lvm ) 05/23/2025 Orders Only GENERIC EXTERNAL DATA DEPARTMENT Provider, Generic External Data 05/21/2025 Orders Only GENERIC EXTERNAL DATA DEPARTMENT Provider, Generic External Data 05/19/2025 Patient Outreach [facility] MED & PEDS [address] [place] [address] Missy Milner RN 05/13/2025 Orders Only [facility] External Provider, [facility] 05/09/2025 Patient Outreach [facility] MED & PEDS [address] [place] [address] Missy Milner RN 05/08/2025 1:00 PM EDT Office Visit [facility] WALK[facility]IN [facility] [address] [place] [phone] Karely Guerra MD 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 [address] [address] Karely Guerra MD Appointment Request (Patient needs a new patient appointment as soon as possible. Please make this patient a high priority.); NEW PATIENT AAPT REQUEST 05/08/2025 Travel 05/05/2025 Orders Only GENERIC EXTERNAL DATA DEPARTMENT Provider, Generic External Data 05/02/2025 Patient Outreach [facility] MED & PEDS [address] [place] [address] Missy Milner RN 05/02/2025 Patient Outreach [facility] MED & PEDS [address] [place] [address] Missy Milner RN 05/02/2025 Telephone [facility] [address] [place] [phone] Misti Murry MD NEW PT APPT 05/02/2025 Patient Outreach [facility] [address] [place] [address] Misti Murry MD Care Coordination (C3/CHW Conor Vidal, TC #3 initial outreach attempt, appt reminder_lvm) 04/30/2025 Telephone [facility] [address] [place] [address] Misti Murry MD CHART PREP 04/30/2025 Orders [...] PM EDT Narrative 07/06/2025 7:18 PM EDT [address] [address] XRay Report Signed Patient: Charbel Delgado MR#: [id number] : 1970 Acct:[id number] Age/Sex: 55 / M ADM Date: 07/06/25 Loc: HO.ED Attending Dr: Ordering Physician: Maryann Cee Date of Service: 07/06/25 Procedure(s): XR chest 1V Accession Number(s): [id number] cc: [facility]; Maryann Cee CLINICAL HISTORY: hypoxia 1 [...] in OV> 07/06/251916 DD/ 15 TD/TT: 07/06/251915 Piece Work Checker: Procedure Note Donotuseinterpreter, Image - 07/06/2025 [place] [address] XRay Report Signed Patient: Isaias Delgado#: [id number] : 1970Acct:[id number] Age/Sex: 55 / MADM Date: 07/06/25 Loc: .ED Attending Dr: Ordering Physician: Maryann Cee Date of Service: 07/06/25 Procedure(s): XR chest 1V Accession Number(s): [id number] cc: [facility]; Maryann Cee CLINICAL HISTORY: hypoxia 1 [...] in OV> 07/06/251916 DD/ 15 TD/TT: 07/06/251915 Piece Work Checker: [facility] External Provider IMG XR PROCEDURES Edited Result - Final * (ABNORMAL) Drug Monitoring, Panel 1, Screen, Urine (07/06/2025 6:08 PM EDT) Only the most recent of3 resultswithin the time period is included. Opiate Screen Urine Not Detected Not Detect [facility] Comment:Opiate cut-off is 30 0 ng/mL.Positive results are unconfirmed and should not be used fornon-medical purposes. Barbiturates, Urine POSITIVE(A) Not Detect [facility] Comment:Barbiturate cut-off is 200 ng/mL.Positive results are unconfirmed and should not be used fornon-medical purposes. Phencyclidine Screen Urine Not Detected Not Detect [facility] Comment:Phencyclidine cut-of f is 25 ng/mL.Positive results are unconfirmed and should not be used fornon-medical purposes. Amphetamine Screen Urine Not Detected Not Detect [facility] Comment:Amphetamine cut-off is 1000 ng/mL.Positive results are unconfirmed and should not be used fornon-medical purposes. Benzodiazepines Screen Urine Not Detected Not Detect [facility] Comment:Benzodiazepine cut-o ff is 200 ng/mL.Positive results are unconfirmed and should not be used fornon-medical purposes. Cocaine Screen Urine Not Detected Not Detect [facility] Comment:Cocaine cut-off is 3 00 ng/mL.Positive results are unconfirmed and should not be used fornon-medical purposes. Cannabinoid Screen Urine Not Detected Not Detect [facility] Comment:Cannabinoid cut-off is 50 ng/mL.Positive results are unconfirmed and should not be used fornon-medical purposes. Methadone Screen, Urine Not Detected Not Detect ng/mL [facility] Comment:Methadone cut-off is 300 ng/mL.Positive results are unconfirmed and should not be used fornon-medical purposes. FENTANYL URINE Not Detected Not Detect [facility] Comment:Fentanyl cut-off is 1 ng/mL.Positive results are unconfirmed and should not be used fornon-medical purposes. Oxycodone Urine Screen Not Detected Not Detect ng/mL [facility] Comment:Oxycodone cut-off is 100 ng/mL.Positive results are unconfirmed and should not be used fornon-medical purposes. Buprenorphine Screen Not Detected Not Detect ng/mL [facility] Comment:Buprenorphine cut-of f is 5 ng/mL.Positive results are unconfirmed and should not be used fornon-medical purposes. 07/06/2025 6:08 PM EDT 07/06/2025 6:11 PM EDT Generic External Data Provider LAB URINE ORDERAB LES Final Result Performing Organization Address [facility] Co de Phone Number [facility] [address] [place] [phone] * High Sensitivity Troponin I (07/06/2025 5:58 PM EDT) Only the most recent of6 resultswithin the time period is included. TROPONIN I HIGH SENSITIVITY <2.7 <3.5 - 35.0 ng/L [facility] Comment:The Connolly high sens itivity Troponin-I results should beused in conjunction with other diagnostic information suchas ECG, clinical observations and information, and patientsymptoms to aid in the diagnosis of [place]. 07/06/2025 5:58 PM EDT 07/06/2025 6:06 PM EDT Generic External Data Provider LAB BLOOD ORDERAB LES Final Result Performing Organization Address [facility] Co de Phone Number [facility] [address] [place] [phone] * (ABNORMAL) Ethanol (07/06/2025 5:58 PM EDT) Only the most recent of5 resultswithin the time period is included. ETHANOL (MG/DL) IN SER/PLAS 399(HH) mg/dL [facility] Comment:Serum/plasma ethanol results are to be used formedical/treatment purposes only. 07/06/2025 5:58 PM EDT 07/06/2025 6:06 PM EDT us Generic External Data Provider LAB BLOOD ORDERAB LES Final Result [facility] [address], [place] [phone] * (ABNORMAL) CBC auto differential (07/06/2025 5:58 PM EDT) Only the most recent of7 resultswithin the time period is included. White Blood Count 3.8(L) 4.8 - 10.8 X10*3/uL [facility] Red Blood Count 3.19(L) 4.60 - 5.80 X10*6/uL [facility] Hemoglobin 9.9(L) 14.0 - 18.0 g/dl [facility] Hematocrit 29.9(L) 42.0 - 52.0 % [facility] Mean Corpuscular Volume 93.7 80.0 - 98.0 fL [facility] Mean Corpuscular Hemoglobin 31.0 27.0 - 33.0 pg [facility] Mean Corpuscular HGB Conc 33.1 31.0 - 36.0 g/dl [facility] Red Cell Distribution Width 17.9(H) 11.0 - 16.0 % [facility] Platelet Count 60(L) 160 - 400 X10*3/uL [facility] Mean Platelet Volume 11.8 9.4 - 12.4 fL [facility] Neutrophils Percent Auto 55.0 45 - 73 % [facility] Imm Gran Pct Auto 0.5(H) 0.0 - 0.4 % [facility] Lymphocytes Percent Auto 30.6 20 - 40 % [facility] Monocytes Percent Auto 8.8 2 - 11 % [facility] Eosinophils Percent Auto 3.5 0 - 4 % [facility] Basophils Percent Auto 1.6 0 - 2 % [facility] NRBC Pct Auto 0.0 0.0 - 0.2 /100WBC [facility] Neutrophils Absolute Auto 2.1 2.0 - 8.3 x10*3/uL [facility] Imm Gran Abs Auto 0.02 0.00 - 0.03 X10*3/uL [facility] Lymphocytes Absolute Auto 1.2 1.2 - 4.9 X10*3/uL [facility] Monocytes Absolute Auto 0.3 0.1 - 1.2 X10*3/uL [facility] Eosinophils Absolute Auto 0.1 0.0 - 0.4 X10*3/uL [facility] Basophils Absolute Auto 0.1 0.0 - 0.2 X10*3/uL [facility] NRBC Abs Auto 0.000 0.0 - 0.012 X10*3/uL [facility] 07/06/2025 5:58 PM EDT 07/06/2025 6:06 PM EDT Generic External Data Provider LAB BLOOD ORDERAB LES Final Result Performing Organization Address City/[facility] Co de Phone Number [facility] [address] [place] [phone] * B Type Natriuretic Peptide (BNP) (07/06/2025 5:58 PM EDT) Only the most recent of6 resultswithin the time period is included. B Type Natriuretic Peptide 100 <100 pg/mL [facility] 07/06/2025 5:58 PM EDT 07/06/2025 6:06 PM EDT Generic External Data Provider LAB BLOOD ORDERAB LES Final Result Performing Organization Address City/[facility]/ZIP Co de Phone Number [facility] [address] [place] [phone] * (ABNORMAL) Comprehensive Metabolic Panel (07/06/2025 5:58 PM EDT) Only the most recent of4 resultswithin the time period is included. Sodium 143 135 - 145 mmol/L [facility] Potassium 3.6 3.3 - 5.1 mmol/L [facility] Chloride 112(H) 96 - 108 mmol/L [facility] Carbon Dioxide 18(L) 22 - 29 mmol/L [facility] Anion Gap 17 12 - 20 [facility] Urea Nitrogen (BUN) 10 9 - 16 mg/dL [facility] Creatinine, Serum 0.95 0.5 - 1.4 mg/dL [facility] Creatinine Clr Calc Pharmacy 69.6 [facility] Comment:eGFR (calculated fro m the MDRD study equation) and eCrCl(calculated from the Cockcroft-Gault equation) are based ondifferent parameters and may not yield comparable results.If eCrCl result is absurd, please check patient'sheight/weight. Estimated Glomerular Filt Rate >60 [facility] Comment:Chronic Kidney Disea se: Estimated GFR < 60 mL/min/1.12w6Norvlj Kidney Disease: Estimated GFR < 15 mL/min/1.73m2 Glucose 110 60 - 115 mg/dL [facility] Calcium 8.1(L) 8.4 - 10.2 mg/dL [facility] Bilirubin, Total 0.6 0.0 - 1.0 mg/dL [facility] Aspartate Amino Transferase 51(H) 5 - 37 U/L [facility] Alanine Aminotransferase 11 0 - 40 U/L [facility] Total Protein 8.0 6.5 - 8.0 g/dL [facility] Albumin Level 3.5 3.5 - 5.0 g/dL [facility] Alkaline Phosphatase 158(H) 39 - 117 U/L [facility] 07/06/2025 5:58 PM EDT 07/06/2025 6:06 PM EDT us Generic External Data Provider LAB BLOOD ORDERAB LES Final Result [facility] [address] [place] [phone] * CT Chest w/ Contrast (06/19/2025 4:46 AM EDT) Anatomical Region Laterality Modality Body, Chest Computed Tomogra phy 06/19/2025 4:46 AM EDT Narrative 06/19/2025 4:48 AM EDT [place] [address] CT Scan Report Signed Patient: Charbel Delgado MR#: [id number] : 1970 Acct:[id number] Age/Sex: 55 / M ADM Date: 06/19/25 Loc: [facility]: Mercedes Hogan MD Ordering Physician: David Galvez PA-C Date of Service: 06/19/25 Procedure(s): CT chest w IV con Accession Number(s): [id number] cc: [facility]; David Galvez PA-C Report Number: [id number]: Total DLP = 265.00 mGy-cm CLINICAL HISTORY: [...] in OV> 06/19/25446 DD/ 5 TD/TT: 06/19/25445 Piece Work Checker: Procedure Note Donotuseinterpreter, Image - 06/19/[address] [place] [address] [address] Scan Report Signed Patient: Isaias Dlegado#: [id number] : 1970Acct:[id number] Age/Sex: 55 / MADM Date: 06/19/25 Loc: [facility]: Mercedes Hogan MD Ordering Physician: David Galvez PA-C Date of Service: 06/19/25 Procedure(s): CT chest w IV con Accession Number(s): [id number] cc: [facility]; David Galvez PA-C Report Number: [id number]: Total DLP = 265.00 mGy-cm CLINICAL HISTORY: [...] in OV> 06/19/25446 DD/ 5 TD/TT: 06/19/25445 Piece Work Checker: [facility] External Provider IMG CT PROCEDURES Edited Result - Final * Lactic Acid (06/18/2025 11:49 PM EDT) Lactic Acid 1.8 0.5 - 2.0 mmol/L [facility] 06/18/2025 11:4 9 PM EDT 06/19/2025 Generic External Data Provider LAB BLOOD ORDERAB LES Final Result [facility] [address] [place] [phone] * XR Chest 2 Views (06/18/2025 11:47 PM EDT) Only the most recent of4 resultswithin the time period is included. Anatomical Region Laterality Modality Chest Radiographic Lamar ging 06/18/2025 11:4 7 PM EDT Narrative 06/18/2025 11:48 PM EDT [address] [address] XRay Report Signed Patient: Charbel Delgado MR#: [id number] : 1970 Acct:[id number] Age/Sex: 55 / M ADM Date: 06/18/25 Loc: .ED Attending Dr: Ordering Physician: David Galvez PA-C Date of Service: 06/18/25 Procedure(s): XR chest 2V Accession Number(s): [id number] cc: [facility]; David Galvez PA-C CLINICAL HISTORY: Hypoxia [...] in OV> 06/18/252347 DD/ 46 TD/TT: 06/18/252346 Piece Work Checker: Procedure Note Donotuseinterpreter, Image - 06/19/2025 [place] [address] XRay Report Signed Patient: Isaias Delgado#: [id number] : 1970Acct:[id number] Age/Sex: 55 / MADM Date: 06/18/25 Loc: .ED Attending Dr: Ordering Physician: David Galvez PA-C Date of Service: 06/18/25 Procedure(s): XR chest 2V Accession Number(s): [id number] cc: [facility]; David Galvez PA-C CLINICAL HISTORY: Hypoxia [...] in OV> 06/18/258 DD/ 46 TD/TT: 06/18/252346 Piece Work Checker: [facility] External Provider IMG XR PROCEDURES Edited Result - Final * Slide Review (06/18/2025 9:19 PM EDT) Pathologist [facility] Slide Review VERIFIED [facility] 06/18/2025 9:19 PM EDT 06/18/2025 9:27 PM EDT Generic External Data Provider LAB BLOOD ORDERAB LES Final Result Performing Organization Address [facility]/ZIP Co de Phone Number [facility] [address] [place] [phone] * Magnesium (06/18/2025 9:19 PM EDT) Only the most recent of5 resultswithin the time period is included. Pathologist [facility] Magnesium 1.6 1.6 - 2.6 mg/dL [facility] 06/18/2025 9:19 PM EDT 06/18/2025 9:27 PM EDT Generic External Data Provider LAB BLOOD ORDERAB LES Final Result Performing Organization Address [facility]/ZIP Co de Phone Number [facility] [address] [place] [address] [phone] * (ABNORMAL) Lactic Acid (06/18/2025 9:19 PM EDT) Lactic Acid 2.4(HH) 0.5 - 2.0 mmol/L [facility] Comment:Critical value for t est(s): LACTA Results called to gildardo baumann by: GOMEZ Person calling: [email or web address] Date: 06/18/25Time:2154 06/18/2025 9:19 PM EDT 06/18/2025 9:27 PM EDT Generic External Data Provider LAB BLOOD ORDERAB LES Final Result Performing Organization Address [facility]/ZIP Co de Phone Number [facility] [address] [place] [phone] * SARS-CoV-2 RNA, Influenza A/B, and RSV RNA, Ql NAAT (06/08/2025 5:01 PM EDT) Only the most recent of2 resultswithin the time period is included. Influenza A PCR NEGATIVE Negative [facility] Influenza B PCR NEGATIVE Negative [facility] Resp Syncy Virus RNA Qual PCR NEGATIVE Negative [facility] SARS COV2 PCR NEGATIVE Negative [facility] Comment:All test results mus t [...] use by authorized laboratories.Testing performed on the [employer] GeneXpert utilizingreal-time RT-PCR.All SARS CoV2 and positive influenza A/B results arereported to [facility]. 06/08/2025 5:01 PM EDT 06/08/2025 5:07 PM EDT us Generic External Data Provider LAB MICROBIOLOGY - GENERAL ORDERABLES Final Result Performing Organization Address City/[facility]/ZIP Co de Phone Number [facility] [address] [place] [phone] * (ABNORMAL) Hepatic Function Panel (06/08/2025 5:01 PM EDT) Only the most recent of4 resultswithin the time period is included. Bilirubin, Total 0.7 0.0 - 1.0 mg/dL [facility] Bilirubin, Direct 0.4 0.0 - 0.5 mg/dL [facility] Aspartate Amino Transferase 66(H) 5 - 37 U/L [facility] Alanine Aminotransferase 15 0 - 40 U/L [facility] Total Protein 7.8 6.5 - 8.0 g/dL [facility] Albumin Level 3.5 3.5 - 5.0 g/dL [facility] Alkaline Phosphatase 133(H) 39 - 117 U/L [facility] 06/08/2025 5:01 PM EDT 06/08/2025 5:05 PM EDT us Generic External Data Provider LAB BLOOD ORDERAB LES Final Result [facility] [address] [place] [phone] * (ABNORMAL) Basic Metabolic Panel (06/08/2025 5:01 PM EDT) Only the most recent of3 resultswithin the time period is included. Sodium 144 135 - 145 mmol/L [facility] Potassium 3.4 3.3 - 5.1 mmol/L [facility] Chloride 114(H) 96 - 108 mmol/L [facility] Carbon Dioxide 20(L) 22 - 29 mmol/L [facility] Anion Gap 13 12 - 20 [facility] Urea Nitrogen (BUN) 9 9 - 16 mg/dL [facility] Creatinine, Serum 0.66 0.5 - 1.4 mg/dL [facility] Creatinine Clr Calc Pharmacy 100.2 [facility] Comment:eGFR (calculated fro m the MDRD study equation) and eCrCl(calculated from the Cockcroft-Gault equation) are based ondifferent parameters and may not yield comparable results.If eCrCl result is absurd, please check patient'sheight/weight. Estimated Glomerular Filt Rate >60 [facility] Comment:Chronic Kidney Disea se: Estimated GFR < 60 mL/min/1.04j3Ormdja Kidney Disease: Estimated GFR < 15 mL/min/1.73m2 Glucose 92 60 - 115 mg/dL [facility] Calcium 8.2(L) 8.4 - 10.2 mg/dL [facility] 06/08/2025 5:01 PM EDT 06/08/2025 5:05 PM EDT us Generic External Data Provider LAB BLOOD ORDERAB LES Final Result Performing Organization Address [facility] Co de Phone Number [facility] [address] [place] [phone] * (ABNORMAL) VENOUS BLOOD GAS (06/05/2025 11:59 AM EDT) VBG pH 7.41 7.32 - 7.43 [facility] Comment:METER #: [id number] additional_comment: Cbnievea VBG PCO2 29 mmHg [facility] Comment:METER #: [id number] additional_comment: Cbnievea VBG PO2 109 mmHg [facility] Comment:METER #: [id number] additional_comment: Cbnievea VBG Base Excess -4.5 mmol/L [facility] Comment:METER #: [id number] additional_comment: Cbnievea VBG HCO3 19(L) 22 - 26 mmol/L [facility] Comment:METER #: [id number] additional_comment: Cbnievea O2 Sat, Demetrio 99.0 % [facility] Comment:METER #: [id number] additional_comment: Cbnievea 06/05/2025 11:5 9 AM EDT 06/05/2025 12:03 PM EDT us Generic External Data Provider LAB BLOOD ORDERAB LES Final Result Performing Organization Address [facility]/ZIP Co de Phone Number [facility] [address] [place] [address] [phone] * (ABNORMAL) Creatine Kinase, Total (06/05/2025 11:54 AM EDT) Only the most recent of2 resultswithin the time period is included. Creatine Kinase Total 34(L) 38 - 174 U/L [facility] 06/05/2025 11:5 4 AM EDT 06/05/2025 11:57 AM EDT us Generic External Data Provider LAB BLOOD ORDERAB LES Final Result Performing Organization Address City/State/[facility] Co de Phone Number [facility] [address] [place] [phone] * VASC US Lower Extremity Venous Duplex Bilateral (05/23/2025 7:11 PM EDT) 05/23/2025 7:11 PM EDT Narrative [facility] - 05/23/2025 7:12 PM EDT [address] [address] Ultrasound Report Signed Patient: Charbel Delgado MR#: [id number] : 1970 Acct:[id number] Age/Sex: 55 / M ADM Date: 05/23/25 Loc: .ED Attending Dr: Ordering Physician: Dexter Foster Date of Service: 05/23/25 Procedure(s): US venous duplex LE BI Accession Number(s): [id number] cc: Dexter Foster; [facility] CLINICAL HISTORY: bilateral leg swelling Venous [...] in OV> 05/23/251910 DD/ 10 TD/TT: 05/23/251910 Piece Work Checker: Procedure Note Donotfernandointerpreter, Image - 05/23/[address] [address] Ultrasound Report Signed Patient: Isaias Delgado#: [id number] : 1970Acct:[id number] Age/Sex: 55 / MADM Date: 05/23/25 Loc: HO.ED Attending Dr: Ordering Physician: Dexter Foster Date of Service: 05/23/25 Procedure(s): US venous duplex LE BI Accession Number(s): [id number] cc: Dexter Foster; [facility] CLINICAL HISTORY: bilateral leg swelling Venous duplex ultrasound bilateral lower extremity Comparison: None provided Findings: The visualized deep veins are fully compressible with normal Doppler color flow and spectral tracings. No popliteal cyst. IMPRESSION: 1. Negative for bilateral lower extremity deep vein thrombosis. This document has been electronically signed by: Edith Palomares MD on 05/23/2025 19:11:02 Dictated By: dEith Palomares MD Signed By: <Electronically signed by Edith Palomares MD in OV> 05/23/251910 DD/ 10 TD/TT: 05/23/251910 Piece Work Checker: us [facility] External Provider CV VASC ULAR PROCEDURES Final Result Performing Organization Address [facility] Co de Phone Number [facility] [address] [place] [phone] * Lipase (05/23/2025 1:50 PM EDT) Lipase 21 8 - 78 U/L [facility] 05/23/2025 1:50 PM EDT 05/23/2025 1:53 PM EDT Generic External Data Provider LAB BLOOD ORDERAB LES Final Result Performing Organization Address [facility] Co de Phone Number [facility] [address] [place] [phone] * US VENOUS DUPLEX LE LT (05/13/2025 10:50 PM EDT) Anatomical Region Laterality Modality Abdomen Ultrasound 05/13/2025 10:5 0 PM EDT Narrative 05/13/2025 10:51 PM EDT [place] [address] Ultrasound Report Signed Patient: Charbel Delgado MR#: [id number] : 1970 Acct:[id number] Age/Sex: 55 / M ADM Date: 05/13/25 Loc: HO.ED Attending Dr: Ordering Physician: David Galvez PA-C Date of Service: 05/13/25 Procedure(s): US venous duplex LE LT Accession Number(s): [id number] cc: [facility]; David Galvez PA-C CLINICAL HISTORY: Swelling; [...] in OV> 05/13/252250 DD/ 49 TD/TT: 05/13/252249 Piece Work Checker: Procedure Note Donotuseinterpreter, Image - 05/13/[address] [address] Ultrasound Report Signed Patient: Rod DelgadoR#: [id number] : 1970Acct:[id number] Age/Sex: 55 / MADM Date: 05/13/25 Loc: HO.ED Attending Dr: Ordering Physician: David Galvez PA-C Date of Service: 05/13/25 Procedure(s): US venous duplex LE LT Accession Number(s): [id number] cc: [facility]; David Galvez PA-C CLINICAL HISTORY: Swelling; [...] in OV> 05/13/252250 DD/ 49 TD/TT: 05/13/252249 Piece Work Checker: [facility] External Provider IMG US PROCEDURES Final Result * Blood Culture (First) (04/30/2025 9:19 AM EDT) Blood Venous blood specimen / Unknown 04/30/2025 9:19 AM EDT 04/30/2025 9:24 AM EDT Comment:Blood Narrative [facility] - 05/05/2025 11:24 AM EDT Blood Culture (First) No growth after 5 days. Specimen Source: Blood Generic External Data Provider LAB MICROBIOLOGY - GENERAL ORDERABLES Final Result Performing Organization Address [facility] de Phone Number [facility] [address] [place] [phone] * Blood Culture (Second) (04/30/2025 9:19 AM EDT) Blood Venous blood specimen / Unknown 04/30/2025 9:19 AM EDT 04/30/2025 9:24 AM EDT Comment:Blood Narrative [facility] - 05/05/2025 11:24 AM EDT Blood Culture (Second) No growth after 5 days. Specimen Source: Blood Generic External Data Provider LAB MICROBIOLOGY - GENERAL ORDERABLES Final Result Performing Organization Address City/[facility] Co de Phone Number [facility] [address] [place] [address], [place] [phone] * (ABNORMAL) Sed Rate by Modified Matthewergren (04/30/2025 9:19 AM EDT) Erythrocyte Sedimentation Rate 26(H) 0 - 15 MM/HR [facility] Comment:Patients with polycy themia and many hemoglobin abnormalitiesmay have depressed sed rates whereas patients with anemiamay have elevated sed rates. 04/30/2025 9:19 AM EDT 04/30/2025 9:24 AM EDT us Generic External Data Provider LAB BLOOD ORDERAB LES Final Result [facility] [address] [place] [phone] from Last 3 Months Insurance [place] [employer] [id number] [place] [address] [facility] [id number] Care Teams Geopolitics Teacher Relationship Specialty Start Date End Date Missy Milner RN [address] [place] [address] Registered Nurse Family Medicine 04/23/25 Conor Vidal 04/23/25
--- OUTSIDE RECORDS SUMMARY | 2025-07-31 19:47 | XMS_ITS | Encounter Summary ---
Author Organization [employer] Address [address] [place] [address] [place] [address] Care Team Providers Care Hydrocrane Operator Name Role Phone Msisy Milner RN Unavailable [phone] Conor Vidal Unavailable Encounter Details Date Type Department Care Team ([facility] st Contact Info) Description 06/19/2025 Results Follow-Up [facility] [address] [place] [address] Provider, Generic External Data XR Chest 2 [...] on filedocumented in this encounter Care Teams Hydrocrane Operator Relationship Specialty Start Date End Date Missy Milner RN [address] [place] [address] Registered Nurse Family Medicine 04/23/25 Conor Vidal 04/23/25 documented as of this encounter
[2025-07-31 22:07] VITALS: BP 95/51; PULSE 76; RESP 18; TEMP 36.8; O2SAT 92
[2025-07-31 23:54] VITALS: BP 94/53; PULSE 72; RESP 16; TEMP 36.4; O2SAT 94
[2025-08-01 06:31] VITALS: BP 116/54; PULSE 89; RESP 16; TEMP 36.7; O2SAT 91
[2025-08-01 14:30] VITALS: BP 131/60; PULSE 84; RESP 18; TEMP 36.6; O2SAT 92
[2025-08-01 14:48] VITALS: BP 131/60; PULSE 84; RESP 18; TEMP 36.6; O2SAT 92
== END 2025-08-01 15:20 | disposition home or self-care (01) ==
PROVIDERS: Emergency Provider Emergency Medicine
DX: M79.672 Pain in left foot (principal); K70.9 Alcoholic liver disease, unspecified; I50.9 Heart failure, unspecified; D64.9 Anemia, unspecified; Z79.899 Other long term (current) drug therapy
CPT/HCPCS: 99283

== ENCOUNTER 2025-08-01 23:48 | Emergency (ER) | payer MEDICAID, SELFPAY ==
--- NOTE | ~2025-08-01 | XR_ITS ---
CLINICAL HISTORY: dyspnea 2 view chest x-ray Comparison: CR - XR CHEST 1V - 07/12/25 17:50 EDT Findings: There has been interval decrease of left basilar opacities. Heart size is normal. No acute fracture. IMPRESSION: Interval decrease of left basilar opacities. This document has been electronically signed by: Serena Wilson on 08/02/2025 07:28:06
[2025-08-02] VITALS: BP 130/78; PULSE 84; O2SAT 88
[2025-08-02 00:04] VITALS: BP 129/61; PULSE 74; RESP 13; TEMP 36.7; O2SAT 93
--- NOTE | 2025-08-02 00:11 | MHC.EDTECH ---
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 Knife was taken from Pt and is now in the office
[2025-08-02 01:25] VITALS: O2SAT 93
--- NOTE | 2025-08-02 03:50 | ED_ITS ---
HPI - Alcohol General Chief Complaint: ETOH/Substance Use Stated Complaint: ETOH Time Seen by Provider: 08/02/25 00:22 Source: patient, EMS and old records reviewed Mode of arrival: EMS Limitations: altered mental status (intoxicated) History of Present Illness ED Provider: Dr. Lurdes Manjarrez HPI narrative: 55-year-old male with history of alcohol use disorder, chronic left ankle pain presenting with intoxication by ambulance from the street. EMS reports that he was found to be intoxicated outside of a store. Reportedly complaining of left ankle pain and swelling. Patient admits to drinking about a sleeve of nips today. Also admits to a cough that is nonproductive. Patient is unwilling to give much history secondary to his intoxication. Related Data Previous Rx's ?Medication ?Instructions ?Recorded furosemide 40 mg tablet (Lasix) 40 mg PO DAILY #30 tab s 07/16/25 levofloxacin 500 mg tablet 500 mg PO DAILY #2 tabs 02/04 Allergies Allergy/AdvReac Type Severity Reaction Status Date / Time No Known Allergies (No Known Allergy Verified 08/02/25 00:04 Allergies*) Review of Systems Review of Systems: as per HPI, full review of systems performed and negative but for the above mentioned pertinent positives and negatives. PMFSH Past Medical History Medical History Alcohol use disorder CHF (congestive heart failure) Alcohol abuse Acute hypoxemic respiratory failure Anemia Pneumonia Alcohol withdrawal syndrome Pancytopenia Alcohol abuse Thrombocytopenia Esophageal varices Acute on chronic anemia Alcoholic liver disease Aspiration pneumonia Thrombocytopenia Malnutrition CHF (congestive heart failure) Anemia Hypomagnesemia Cirrhosis Thrombocytopenia Acute on chronic anemia CHF (congestive heart failure) Anemia Alcohol abuse Surgical History No history of previous surgery Social History Social History Household Members: None Household Members Other:: homeless Housing: Other Housing Other:: homeless Do you presently have visiting nurse or other home services: No Unable to assess alcohol history related to: Unable to respond Alcohol intake: current Alcohol intake frequency: 3 or more drinks per day Alcohol type: beer and hard liquor Comment: pt refuse to have staff remain in [place] Patient Tobacco Use Status: Former Tobacco user Tobacco use type: Cigarette Second Hand Smoke Exposure: No Advance Directives: Yes Advance Directives on File: Yes Advance Directives Date on File: 07/13/23 service: No Physical Exam ED Exam Exam: GENERAL: Appears intoxicated, GCS 13, eyes open to voice, slurred speech, no acute distress. SKIN: Normal skin color for ethnicity, warm, dry, no rashes noted. HEENT: Normocephalic, atraumatic, no stridor, posterior oropharynx nonerythematous, dentition intact, EOMI, pupils are pinpoint bilaterally, reactive to light. NECK: Soft, supple, no step-offs, no deformities, no lymphadenopathy. CHEST: Heart regular tachycardia, no murmurs, symmetric chest rise and fall. PULMONARY: Clear to auscultation bilaterally, diminished at the bases, no labored breathing, no wheezes/rhales/rhonchi. ABDOMINAL: Soft, nondistended, positive bowel sounds in all quadrants. : Deferred. MUSCULOSKELETAL: Normal tone, full range of motion, LLE edematous, normal CSMs distally. NEURO: GCS 13, eyes open to voice, slightly slurred speech, CN II through XII intact, equal strength and sensation bilateral upper and lower extremities, no focal neurologic deficits. PSYCHIATRIC: Flat affect, poor eye contact. Vital Signs: Vital Signs - 24 hr 08/02/25 00:04 08/02/25 01:25 08/02/25 06:34 Temperature 98.0 F 97.0 F Pulse Rate 74 78 Respiratory Rate 13 18 Blood Pressure 129/61 90/52 L Pulse Oximetry 93 93 92 Oxygen Delivery Method Nasal Cannula Nasal Cannula Room Air Oxygen Flow Rate 1 BMI result Body Mass Index 20.0 Medical Decision Making Medical Decision Making [facility] Narrative: Patient presents with request for alcohol detox. Differential diagnosis includes alcohol intoxication, alcohol withdrawal, substance use disorder, decompensated mental illness including depression and anxiety, among many others. We will initiate medical clearance and recovery team/care team consult. Patient reports that he no longer wishes to seek detox today. Is requesting discharge at this time. Encouraged him to return to the emergency department at any time for help with his alcohol use disorder. He understands and agrees with plan for discharge. Discharged in stable condition Differential Diagnosis Differential Diagnoses: The differential diagnosis associated with the presentation includes (as above) Admission/Observation Consideration of admission/observation: Escalation of care including admission/observation considered Lab Data [facility] Lab Attestation statement: I reviewed the patient's lab results. Labs: Lab Results 08/02/25 Range/Units 07:07 COVID-19 (TAI) Negative (Negative) COVID-19 Clin Com See Note Influenza Type A (PAU[facility]TTE) Negative (Negative) Influenza Type B ([facility]TTE) Negative (Negative) Influenza A & B Note See Note Radiology Impression Discussion of test interpretation with radiology: I have reviewed the radiologist's reading. Radiologist Impression: 2 view chest x-ray Comparison: CR - XR CHEST 1V - 07/12/25 17:50 EDT Findings: There has been interval decrease of left basilar opacities. Heart size is normal. No acute fracture. IMPRESSION: Interval decrease of left basilar opacities. This document has been electronically signed by: Serena Wilson on 08/02/2025 07:28:06 Independent Historian Clinical information obtained from an independent historian. History obtained from or confirmed by: EMS External Record Review External record reviewed: Inpatient record Chronic Conditions Patient?s care impacted by: Other (CHF, EtOH use disorder, cirrhosis) Social Determinants Patient?s care significantly limited by Social Determinants of Health including: Inadequate housing and Alcoholism and drug addiction in family Discharge Plan Discharge Clinical Impression: Alcoholic intoxication, Chronic pain of left ankle Patient Disposition: Home, Self-Care Instructions: Abuse of Alcohol (ED) Additional Instructions: Alcohol use disorder You were seen in the Emergency Department today for treatment of alcohol use disorder.? You may have been given medications to help with your withdrawal symptoms.? Please do not drink alcohol with them. This is very dangerous and can cause respiratory depression or other adverse reactions depending on the medication. If you would like to cut down or stop your alcohol use please consider calling our outpatient Addiction Treatment office:? [facility] (M-F 9a-[address]p [address] [place] [address] You have also been given a list of treatment providers in the area that can assist as well.? If you experience seizures, vomiting blood, black stools, falls, severe headache, chest pain, fevers, trouble breathing, hallucinations or any other concerns you need to call 911 or seek immediate care. Please stay hydrated. Prescriptions: No Action levofloxacin 500 mg tablet 500 mg PO DAILY Qty: 2 0RF furosemide [Lasix] 40 mg tablet 40 mg PO DAILY Qty: 30 0RF Interventions: ED Discharge Assessment Last Done: 08/02/25 07:42 Discharge Date/Time: 08/02/25 07:48 Print Language: Kiswahili
--- OUTSIDE RECORDS SUMMARY | 2025-08-02 04:32 | XMS_ITS ---
Author Organization [employer] Address [address] [place] [address] 7 [place] [address] Care Team Providers Care Historian Research Assistant Name Role Phone Missy Milner RN Unavailable [phone] Conor Vidal Unavailable CHW Complex Status:Outreach In Progress (Enrolling) Start date:04/23/2025 Enrollment reason:ADT Feed Overview ADT-admitted [facility] 04/22/25 Case Team Name Relationship Phone Conor Vidal(Responsible Staff) [phone] Continued Care and Services Coordination
--- OUTSIDE RECORDS SUMMARY | 2025-08-02 04:32 | XMS_ITS | Encounter Summary ---
Author Organization [facility] Address [address] [place] [address] Phone Care Team Providers Care Lard Maker Name Role Phone [facility], [facility] Primary Care Provider Pcp, Unknown Unavailable Unavailable Encounter Details Date Type Department Care Team (Late st Contact Info) Description 01/04/2024 Transcribe Orders [facility] [address] [place] [address] Missy Miranda PA [address] [place] [id number] [email or web address] Need for hepatitis C screening test (Primary [...] ORDERABLES Fin al Result Performing Organization Address City/[facility] Co de Phone Number [address] [address] * (ABNORMAL) PT-INR (01/04/2024 9:22 AM EST) [facility] PT 15.9(H) 10.2 - 12.9 sec [facility] INR 1.4(H) 0.9 - 1.1 [facility] Comment:Therapeutic range fo r oral Vitamin K antagonists: 2.0-3.5 Blood 01/04/2024 9:22 AM EST 01/04/2024 9:53 AM EST Missy WALLACE LAB BLOOD ORDERABLES Fin al Result Performing Organization Address City/[facility]/ZIP Co de Phone Number [address] [address] * Iron and iron binding capacity (01/04/2024 9:22 AM EST) IRON 81 45 - 160 ug/dL [facility] IRON BINDING CAPACITY 326 228 - 428 ug/dL [facility] TRANSFERRIN SATURAT. 25 20 - 55 % [facility] Blood 01/04/2024 9:22 AM EST 01/04/2024 9:53 AM EST Missy WALLACE LAB BLOOD ORDERABLES Fin al Result Performing Organization Address [facility] de Phone Number [address] [address] * Lipase (01/04/2024 9:22 AM EST) LIPASE 35 16 - 63 U/L [facility] Blood 01/04/2024 9:22 AM EST 01/04/2024 9:53 AM EST Missy WALLACE LAB BLOOD ORDERABLES Fin al Result Performing Organization Address [facility] de Phone Number [address] [address] * Hepatitis C antibody, qualitative (01/04/2024 9:22 AM EST) HCV NON-REACTIV E NON-REACTI VE [facility] Blood 01/04/2024 9:22 AM EST 01/04/2024 9:53 AM EST Missy WALLACE LAB BLOOD ORDERABLES Fin al Result Performing Organization Address [facility] de Phone Number [address] [address] * Hepatitis B surface antibody (01/04/2024 9:22 AM EST) HBV SURFACE ANTIBODY Negative [facility] Comment: Unvaccinated: Negative Vaccinated: Positive Blood 01/04/2024 9:22 AM EST 01/04/2024 9:53 AM EST Missy WALLACE LAB BLOOD ORDERABLES Fin al Result Performing Organization Address City/[facility]/ZIP Co de Phone Number [address] [address] * Hepatitis B surface antigen (01/04/2024 9:22 AM EST) HBV SURFACE ANTIGEN NON-REACTI VE NON-REACTI VE [facility] Blood 01/04/2024 9:22 AM EST 01/04/2024 9:53 AM EST Missy WALLACE LAB BLOOD ORDERABLES Fin al Result Performing Organization Address [facility] Co de Phone Number [address] [address] * Hepatitis B core antibody, total (01/04/2024 9:22 AM EST) HEP B CORE AB, TOT NON-REACTI VE NON-REACTI VE [facility] Blood 01/04/2024 9:22 AM EST 01/04/2024 9:53 AM EST Missy WALLACE LAB BLOOD ORDERABLES Fin al Result Performing Organization Address [facility] Co de Phone Number [address] [address] * HEPATITIS A ANTIBODY, TOTAL (01/04/2024 9:22 AM EST) HAV TOTAL AB NON-REACTI VE NON-REACTI VE [facility] Blood 01/04/2024 9:22 AM EST 01/04/2024 9:53 AM EST Missy WALLACE LAB BLOOD ORDERABLES Fin al Result Performing Organization Address [facility] Co de Phone Number [address] [address] * (ABNORMAL) GGT (Gamma glutamyl transferase) (01/04/2024 9:22 AM EST) GGT 54(H) 11 - 51 U/L [facility] Blood 01/04/2024 9:22 AM EST 01/04/2024 9:53 AM EST Missy WALLACE LAB BLOOD ORDERABLES Fin al Result [address] [address] * C-Reactive Protein (01/04/2024 9:22 AM EST) Pathologist [facility] C REACTIVE PROTEIN <3.0 0.0 - 4.0 mg/L [facility] Blood 01/04/2024 9:22 AM EST 01/04/2024 9:53 AM EST Missy WALLACE LAB BLOOD ORDERABLES Fin al Result Performing Organization Address City/[facility] Co de Phone Number [address] [address] * (ABNORMAL) Comprehensive metabolic panel (01/04/2024 9:22 AM EST) Pathologist [facility] SODIUM 137 133 - 146 mmol/L [facility] [...] ORDERABLES Fin al Result Performing Organization Address City/State/[facility] Co de Phone Number [address] [address] * (ABNORMAL) CBC and differential (01/04/2024 9:22 [...] WALLACE LAB BLOOD ORDERABLES Fin al Result [address] [address] * (ABNORMAL) Immunoglobulin A (01/04/2024 9:22 AM EST) Pathologist [facility] IgA 436(H) 70 - 400 mg/dL [facility] Blood 01/04/2024 9:22 AM EST 01/04/2024 9:53 AM EST [facility] Nathaly Miranda [place] LAB BLOOD ORDERABLES Fin al Result [address] [address] * Tissue transglutaminase IgA (01/04/2024 9:22 AM EST) TTG IGA ANTIBODY 1.9 <4.0 (Negative) U/mL [facility] [address] Blood 01/04/2024 9:22 AM EST 01/04/2024 9:53 AM EST Missy WALLACE LAB BLOOD ORDERABLES Fin al Result [facility] [id number] [place] [address] * Smooth Muscle Antibody (01/04/2024 9:22 AM EST) SMOOTH MUSCLE AB POSITIVE AT 1:20 [facility] Comment: Performing Physician, Max Jimenez M.D., [id number] Normal: Negative at 1:20 Blood 01/04/2024 9:22 AM EST 01/04/2024 9:53 AM EST Missy WALLACE LAB BLOOD ORDERABLES Fin al Result Performing Organization Address [facility] Co de Phone Number [address] [address] * Ceruloplasmin (01/04/2024 9:22 AM EST) CERULOPLASMIN 31 20 - 60 mg/dL [facility] Blood 01/04/2024 9:22 AM EST 01/04/2024 9:53 AM EST Missy WALLACE LAB BLOOD ORDERABLES Fin al Result Performing Organization Address [facility] Co de Phone Number [address] [address] * (ABNORMAL) Antinuclear antibody (JERMAIN) (01/04/2024 9:22 AM EST) JERMAIN SCREEN ON HEP 2 Positive(A ) Negative [facility] Comment:An JERMAIN Titer has bee n reflexed. The results will follow. Blood 01/04/2024 9:22 AM EST 01/04/2024 9:53 AM EST Missy WALLACE LAB BLOOD ORDERABLES Fin al Result Performing Organization Address City/[facility] Co de Phone Number MENDOZA BISMARK [address] [address] * Anti-Mitochondrial Antibody (AMA) (01/04/2024 9:22 AM EST) MITOCHONDRIAL AB NEGATIVE AT 1:20 [facility] Comment: Performing Physician, Max Jimenez M.D., [id number] Normal: Negative at 1:20 Blood 01/04/2024 9:22 AM EST 01/04/2024 9:53 AM EST Missy WALLACE LAB BLOOD ORDERABLES Fin al Result [address] [address] * Amylase (01/04/2024 9:22 AM EST) Pathologist [facility] AMYLASE 86 28 - 100 U/L [facility] Blood 01/04/2024 9:22 AM EST 01/04/2024 9:53 AM EST Missy WALLACE LAB BLOOD ORDERABLES Fin al Result Performing Organization Address City/[facility]/ZIP Co de Phone Number [address] [address] * AFP (non-maternal specimens) (01/04/2024 9:22 AM EST) Pathologist [facility] AFP (NON-MATERNAL) 4.7 <7.9 ng/mL [facility] Comment: Test Methodology Filipe [id number] Patient results determined by assays using different manufacturers or methods may not be comparable. Blood 01/04/2024 9:22 AM EST 01/04/2024 9:53 AM EST Missy WALLACE LAB BLOOD ORDERABLES Fin al Result Performing Organization Address City/[facility]/ZIP Co de Phone Number [address] [address] * Tcbyf-[id number]-gcedluiqegh phenotyping (01/04/2024 9:22 AM EST) ALPHA 1 ANTITRYPSIN 173 100 - 190 mg/dL [facility] [address] Comment: (NOTE) ADDITIONAL INFORMATION Method: Nephelometry A1A PHENOTYPE MM bands [facility] [address] Comment: (NOTE) A single M isoform is detected. In the context of a normal bvrcy-7-gbbtnzytlba concentration, this is consistent with an MM phenotype. ADDITIONAL INFORMATION Method: Isoelectric Focusing, This assay identifies the phenotype of the circulating zgszd-6-vjbuxpraymz (A1A) protein. If the patient is on [...] [facility] [address] [place] [address] documented in this encounter Visit Diagnoses Diagnosis Need for hepatitis C screening test- Primary Special screening examination for other specified viral diseases Hepatic cirrhosis, unspecified hepatic cirrhosis type, unspecified whether ascites present Esophageal varices in alcoholic cirrhosis Esophageal varices without mention of bleeding documented in this encounter Care Teams Lard Maker Relationship Specialty Start Date End Date [facility] MD [address] [place] [address] PCP - General 10/07/23 Pcp, Unknown 10/07/23 documented as of this encounter Additional Source Comments The information contained in this document represents components of the legal health record. It is not the complete legal health record.[facility]
--- OUTSIDE RECORDS SUMMARY | 2025-08-02 04:32 | XMS_ITS | Encounter Summary ---
Author Organization [facility] Address [address] [facility] [address] [facility] [address] [place] [address] Phone Care Team Providers Care Unhairer Name Role Phone [facility], [facility] Primary Care Provider Pcp, Unknown Unavailable Unavailable Encounter Details Date Type Department Care Team ([facility] st Contact Info) Description 10/31/2023 Procedure Pass [facility] Endoscopy Admitting Dept Virtual Department [address] [place] [phone] Social History Tobacco Use Types Packs/Day Years [...] on filedocumented in this encounter Care Teams Unhairer Relationship Specialty Start Date End Date [facility] [address] [place] [address] PCP - General 10/07/23 Pcp, Unknown 10/07/23 documented as of this encounter Additional Source Comments The information contained in this document represents components of the legal health record. It is not the complete legal health record.[facility]
--- OUTSIDE RECORDS SUMMARY | 2025-08-02 04:32 | XMS_ITS | Clinical Summary ---
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 Name Role Phone Missy Milner RN Unavailable [phone] Young Conor Unavailable Allergies No known active [...] Patient presented with altered mental status from [facility] where he appeared more lethargic than [...] Department Care Team Description 07/21/2025 Patient Outreach [facility] MEDICINE [address] [place] [address] Conor Vidal 07/08/2025 Patient Outreach [facility] MED & PEDS [address] [place], [place] [phone] Missy Milner, LAURA 07/07/2025 Telephone [facility] MEDICINE [address] [place] [address] Mihaela Zhong, LAURA Needs [employer] Appt 07/06/2025 Orders Only GENERIC EXTERNAL DATA DEPARTMENT Provider, Generic External Data 07/02/2025 Orders Only [facility] External Provider, [facility] 07/01/2025 Patient Outreach [facility] MEDICINE [address] [place] [address] Missy Milner, LAURA Care Coordination (C3CM/CHW Conor Vidal, TC #5 initial outreach attempt_lvm) 06/19/2025 Results Follow-Up [facility] [address] [place] [address] Provider, Generic External Data XR Chest 2 Views 06/19/2025 Results Follow-Up [facility] [address] [place], [place] [phone] External Provider, [facility] CT Chest w/ Contrast 06/19/2025 Orders Only [facility] External Provider, [facility] 06/18/2025 Orders Only GENERIC EXTERNAL DATA DEPARTMENT Provider, Generic External Data 06/11/2025 Travel 06/09/2025 Results Follow-Up [facility] [address] [place], [place] [phone] Provider, Generic External Data XR Chest 1 View 06/08/2025 Orders Only GENERIC EXTERNAL DATA DEPARTMENT Provider, Generic External Data 06/05/2025 Orders Only GENERIC EXTERNAL DATA DEPARTMENT Provider, Generic External Data 05/30/2025 Patient Outreach [facility] MEDICINE [address] [place] [phone] Missy Milner RN Care Coordination (C3CM/CHW Conor Vidal, TC #4 Initial outreach attempt_lvm ) 05/23/2025 Orders Only GENERIC EXTERNAL DATA DEPARTMENT Provider, Generic External Data 05/21/2025 Orders Only GENERIC EXTERNAL DATA DEPARTMENT Provider, Generic External Data 05/19/2025 Patient Outreach [facility] MED & PEDS [address] [place] [address] Missy Milner RN 05/13/2025 Orders Only [facility] External Provider, [facility] 05/09/2025 Patient Outreach [facility] MED & PEDS [address] [place] [address] Missy Milner RN 05/08/2025 1:00 PM EDT Office Visit [facility] [address] [place] [address] Karely Guerra MD 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 Please make this patient a high priority.); NEW PATIENT AAPT REQUEST 05/08/2025 Travel 05/05/2025 Orders Only GENERIC EXTERNAL DATA DEPARTMENT Provider, Generic External Data 05/02/2025 Patient Outreach [facility] MED & PEDS [address] [place] [address] Missy Milner RN 05/02/2025 Patient Outreach [facility] MED [facility] PEDS [address] [place] [address] Missy Milner RN 05/02/2025 Telephone [facility] MED[facility]INE [address] [place] [address] Misti Murry MD NEW PT APPT 05/02/2025 Patient Outreach [facility] MED[facility] [address] [place] [address] Misti Murry MD Care Coordination (C3/CHW Conor Vidal, TC #3 initial outreach attempt, appt reminder_lvm) from Last 3 Months Immunizations Immunization Administration [...] 2 VIEWS Routine 05/05/2025 1:51 PM EDT from Last 3 Months Results * XR Chest 1 View (07/06/2025 7:16 PM EDT) Only the most recent of4 resultswithin the time period is included. Anatomical Region Laterality Modality Chest Radiographic Lamar ging 07/06/2025 7:16 PM EDT Narrative 07/06/2025 7:18 PM EDT [place] [address] XRay Report Signed Patient: Charbel Delgado MR#: [id number] : 1970 Acct:[id number] Age/Sex: 55 / M ADM Date: 07/06/25 Loc: .ED Attending Dr: Ordering Physician: Maryann Cee Date of Service: 07/06/25 Procedure(s): XR chest 1V Accession Number(s): [id number] cc: [facility]; Maryann Cee CLINICAL HISTORY: hypoxia 1 [...] in OV> 07/06/251916 DD/ 15 TD/TT: 07/06/251915 Mine Development Engineer: Procedure Note Donotuseinterpreter, Image - 07/06/[address] [address] XRay Report Signed Patient: Isaias Delgado#: [id number] : 1970Acct:[id number] Age/Sex: 55 / MADM Date: 07/06/25 Loc: .ED Attending Dr: Ordering Physician: Maryann Cee Date of Service: 07/06/25 Procedure(s): XR chest 1V Accession Number(s): [id number] cc: [facility]; Maryann Cee CLINICAL HISTORY: hypoxia 1 [...] in OV> 07/06/251916 DD/ 15 TD/TT: 07/06/251915 Mine Development Engineer: [facility] External Provider IMG XR PROCEDURES Edited Result - Final * (ABNORMAL) Drug Monitoring, Panel 1, Screen, Urine (07/06/2025 6:08 PM EDT) Only the most recent of3 resultswithin the time period is included. Opiate Screen Urine Not Detected Not Detect [facility] Comment:Opiate cut-off is 30 0 ng/mL.Positive results are unconfirmed and should not be used fornon-medical purposes. Barbiturates, Urine POSITIVE(A) Not Detect [facility] Comment:Barbiturate cut-off is 200 ng/mL.Positive results are unconfirmed and should not be used fornon-medical purposes. Phencyclidine Screen Urine Not Detected Not Detect [facility] Comment:Phencyclidine cut-of f is 25 ng/mL.Positive results are unconfirmed and should not be used fornon-medical purposes. Amphetamine Screen Urine Not Detected Not Detect [facility] Comment:Amphetamine cut-off is 1000 ng/mL.Positive results are unconfirmed and should not be used fornon-medical purposes. Benzodiazepines Screen Urine Not Detected Not Detect [facility] Comment:Benzodiazepine cut-o ff is 200 ng/mL.Positive results are unconfirmed and should not be used fornon-medical purposes. Cocaine Screen Urine Not Detected Not Detect [facility] Comment:Cocaine cut-off is 3 00 ng/mL.Positive results are unconfirmed and should not be used fornon-medical purposes. Cannabinoid Screen Urine Not Detected Not Detect [facility] Comment:Cannabinoid cut-off is 50 ng/mL.Positive results are unconfirmed and should not be used fornon-medical purposes. Methadone Screen, Urine Not Detected Not Detect ng/mL [facility] Comment:Methadone cut-off is 300 ng/mL.Positive results are unconfirmed and should not be used fornon-medical purposes. FENTANYL URINE Not Detected Not Detect [facility] Comment:Fentanyl cut-off is 1 ng/mL.Positive results are unconfirmed and should not be used fornon-medical purposes. Oxycodone Urine Screen Not Detected Not Detect ng/mL [facility] Comment:Oxycodone cut-off is 100 ng/mL.Positive results are unconfirmed and should not be used fornon-medical purposes. Buprenorphine Screen Not Detected Not Detect ng/mL [facility] Comment:Buprenorphine cut-of f is 5 ng/mL.Positive results are unconfirmed and should not be used fornon-medical purposes. 07/06/2025 6:08 PM EDT 07/06/2025 6:11 PM EDT us Generic External Data Provider LAB URINE ORDERAB LES Final Result [facility] [address] [place] [address] [phone] * High Sensitivity Troponin I (07/06/2025 5:58 PM EDT) Only the most recent of6 resultswithin the time period is included. Pathologist [facility] TROPONIN I HIGH SENSITIVITY <2.7 <3.5 - 35.0 ng/L [facility] Comment:The Connolly high sens itivity Troponin-I results should beused in conjunction with other diagnostic information suchas ECG, clinical observations and information, and patientsymptoms to aid in the diagnosis of SD. 07/06/2025 5:58 PM EDT 07/06/2025 6:06 PM EDT Generic External Data Provider LAB BLOOD ORDERAB LES Final Result Performing Organization Address [facility]/ZIP Co de Phone Number [facility] [address] [place] [phone] * (ABNORMAL) Ethanol (07/06/2025 5:58 PM EDT) Only the most recent of5 resultswithin the time period is included. Pathologist [facility] ETHANOL (MG/DL) IN SER/PLAS 399(HH) mg/dL [facility] Comment:Serum/plasma ethanol results are to be used formedical/treatment purposes only. 07/06/2025 5:58 PM EDT 07/06/2025 6:06 PM EDT Generic External Data Provider LAB BLOOD ORDERAB LES Final Result Performing Organization Address City/[facility]/ZIP Co de Phone Number [facility] [address] [place] [phone] * (ABNORMAL) CBC auto differential (07/06/2025 5:58 PM EDT) Only the most recent of6 resultswithin the time period is included. Pathologist [facility] White Blood Count 3.8(L) 4.8 - 10.8 X10*3/uL [facility] Red Blood Count 3.19(L) 4.60 - 5.80 X10*6/uL [facility] Hemoglobin 9.9(L) 14.0 - 18.0 g/dl [facility] Hematocrit 29.9(L) 42.0 - 52.0 % [facility] Mean Corpuscular Volume 93.7 80.0 - 98.0 fL [facility] Mean Corpuscular Hemoglobin 31.0 27.0 - 33.0 pg [facility] Mean Corpuscular HGB Conc 33.1 31.0 - 36.0 g/dl [facility] Red Cell Distribution Width 17.9(H) 11.0 - 16.0 % [facility] Platelet Count 60(L) 160 - 400 X10*3/uL [facility] Mean Platelet Volume 11.8 9.4 - 12.4 fL [facility] Neutrophils Percent Auto 55.0 45 - 73 % [facility] Imm Gran Pct Auto 0.5(H) 0.0 - 0.4 % [facility] Lymphocytes Percent Auto 30.6 20 - 40 % [facility] Monocytes Percent Auto 8.8 2 - 11 % [facility] Eosinophils Percent Auto 3.5 0 - 4 % [facility] Basophils Percent Auto 1.6 0 - 2 % [facility] NRBC Pct Auto 0.0 0.0 - 0.2 /100WBC [facility] Neutrophils Absolute Auto 2.1 2.0 - 8.3 x10*3/uL [facility] Imm Gran Abs Auto 0.02 0.00 - 0.03 X10*3/uL [facility] Lymphocytes Absolute Auto 1.2 1.2 - 4.9 X10*3/uL [facility] Monocytes Absolute Auto 0.3 0.1 - 1.2 X10*3/uL [facility] Eosinophils Absolute Auto 0.1 0.0 - 0.4 X10*3/uL [facility] Basophils Absolute Auto 0.1 0.0 - 0.2 X10*3/uL [facility] NRBC Abs Auto 0.000 0.0 - 0.012 X10*3/uL [facility] 07/06/2025 5:58 PM EDT 07/06/2025 6:06 PM EDT us Generic External Data Provider LAB BLOOD ORDERAB LES Final Result Performing Organization Address City/[facility]/ZIP Co de Phone Number [facility] [address] [place] [address] [phone] * B Type Natriuretic Peptide (BNP) (07/06/2025 5:58 PM EDT) Only the most recent of6 resultswithin the time period is included. B Type Natriuretic Peptide 100 <100 pg/mL [facility] 07/06/2025 5:58 PM EDT 07/06/2025 6:06 PM EDT Generic External Data Provider LAB BLOOD ORDERAB LES Final Result Performing Organization Address City/[facility]/ZIP Co de Phone Number [facility] [address] [place] [address] [phone] * (ABNORMAL) Comprehensive Metabolic Panel (07/06/2025 5:58 PM EDT) Only the most recent of3 resultswithin the time period is included. [facility] Sodium 143 135 - 145 mmol/L [facility] Potassium 3.6 3.3 - 5.1 mmol/L [facility] Chloride 112(H) 96 - 108 mmol/L [facility] Carbon Dioxide 18(L) 22 - 29 mmol/L [facility] Anion Gap 17 12 - 20 [facility] Urea Nitrogen (BUN) 10 9 - 16 mg/dL [facility] Creatinine, Serum 0.95 0.5 - 1.4 mg/dL [facility] Creatinine Clr Calc Pharmacy 69.6 [facility] Comment:eGFR (calculated fro m the MDRD study equation) and eCrCl(calculated from the Cockcroft-Gault equation) are based ondifferent parameters and may not yield comparable results.If eCrCl result is absurd, please check patient'sheight/weight. Estimated Glomerular Filt Rate >60 [facility] Comment:Chronic Kidney Disea se: Estimated GFR < 60 mL/min/1.08y9Fzetgw Kidney Disease: Estimated GFR < 15 mL/min/1.73m2 Glucose 110 60 - 115 mg/dL [facility] Calcium 8.1(L) 8.4 - 10.2 mg/dL [facility] Bilirubin, Total 0.6 0.0 - 1.0 mg/dL [facility] Aspartate Amino Transferase 51(H) 5 - 37 U/L [facility] Alanine Aminotransferase 11 0 - 40 U/L [facility] Total Protein 8.0 6.5 - 8.0 g/dL [facility] Albumin Level 3.5 3.5 - 5.0 g/dL [facility] Alkaline Phosphatase 158(H) 39 - 117 U/L [facility] 07/06/2025 5:58 PM EDT 07/06/2025 6:06 PM EDT us Generic External Data Provider LAB BLOOD ORDERAB LES Final Result Performing Organization Address City/State/[facility] Co de Phone Number [facility] [address] [place] [phone] * CT Chest w/ Contrast (06/19/2025 4:46 AM EDT) Anatomical Region Laterality Modality Body, Chest Computed Tomogra phy 06/19/2025 4:46 AM EDT Narrative 06/19/2025 4:48 AM EDT [place] [address] [address] Scan Report Signed Patient: Charbel Delgado MR#: [id number] : 1970 Acct:[id number] Age/Sex: 55 / M ADM Date: 06/19/25 Loc: [facility] [place]: Mercedes Hogan MD Ordering Physician: David Galvez PA-C Date of Service: 06/19/25 Procedure(s): CT chest w IV con Accession Number(s): [id number] cc: [facility]; David Galvez PA-C Report Number: [id number]: Total DLP = 265.00 mGy-cm CLINICAL HISTORY: [...] in OV> 06/19/25446 DD/ 5 TD/TT: 06/19/25445 Mine Development Engineer: Procedure Note Donotuseinterpreter, Image - 06/19/[address] [address] [address] Scan Report Signed Patient: Isaias Delgado#: [id number] : 1970Acct:[id number] Age/Sex: 55 / MADM Date: 06/19/25 Loc: [facility]: Mercedes Hogan MD Ordering Physician: David Galvez PA-C Date of Service: 06/19/25 Procedure(s): CT chest w IV con Accession Number(s): [id number] cc: [facility]; David Galvez PA-C Report Number: [id number]: Total DLP = 265.00 mGy-cm CLINICAL HISTORY: [...] in OV> 06/19/25446 DD/ 5 TD/TT: 06/19/25445 Mine Development Engineer: us [facility] External Provider IMG CT PROCEDURES Edited Result - Final * Lactic Acid (06/18/2025 11:49 PM EDT) Lactic Acid 1.8 0.5 - 2.0 mmol/L [facility] 06/18/2025 11:4 9 PM EDT 06/19/2025 us Generic External Data Provider LAB BLOOD ORDERAB LES Final Result [facility] [address] [place] [phone] * XR Chest 2 Views (06/18/2025 11:47 PM EDT) Only the most recent of3 resultswithin the time period is included. Anatomical Region Laterality Modality Chest Radiographic Lamar ging 06/18/2025 11:4 7 PM EDT Narrative 06/18/2025 11:48 PM EDT [address] [address] XRay Report Signed Patient: Charbel Delgado MR#: [id number] : 1970 Acct:[id number] Age/Sex: 55 / M ADM Date: 06/18/25 Loc: HO.ED Attending Dr: Ordering Physician: David Galvez PA-C Date of Service: 06/18/25 Procedure(s): XR chest 2V Accession Number(s): [id number] cc: [facility]; David Galvez PA-C CLINICAL HISTORY: Hypoxia [...] in OV> 06/18/252347 DD/ 46 TD/TT: 06/18/252346 Mine Development Engineer: Procedure Note Donotuseinterpreter, Image - 06/19/[address] [address] XRay Report Signed Patient: Isaias Delgado#: [id number] : 1970Acct:[id number] Age/Sex: 55 / MADM Date: 06/18/25 Loc: HO.ED Attending Dr: Ordering Physician: David Galvez PA-C Date of Service: 06/18/25 Procedure(s): XR chest 2V Accession Number(s): [id number] cc: [facility]; David Galvez PA-C CLINICAL HISTORY: Hypoxia [...] in OV> 06/18/258 DD/ 46 TD/TT: 06/18/252346 Mine Development Engineer: us [facility] External Provider IMG XR PROCEDURES Edited Result - Final * Slide Review (06/18/2025 9:19 PM EDT) Slide Review VERIFIED [facility] 06/18/2025 9:19 PM EDT 06/18/2025 9:27 PM EDT Generic External Data Provider LAB BLOOD ORDERAB LES Final Result [facility] [address] [place] [phone] * Magnesium (06/18/2025 9:19 PM EDT) Only the most recent of5 resultswithin the time period is included. Magnesium 1.6 1.6 - 2.6 mg/dL [facility] 06/18/2025 9:19 PM EDT 06/18/2025 9:27 PM EDT Generic External Data Provider LAB BLOOD ORDERAB LES Final Result Performing Organization Address [facility] de Phone Number [facility] [address] [place] [phone] * (ABNORMAL) Lactic Acid (06/18/2025 9:19 PM EDT) Pathologist [facility] Lactic Acid 2.4(HH) 0.5 - 2.0 mmol/L [facility] Comment:Critical value for t est(s): LACTA Results called to gildardo back by: PATRICIA Person calling: NGUYENQ Date: 06/18/25Time:2153 06/18/2025 9:19 PM EDT 06/18/2025 9:27 PM EDT Generic External Data Provider LAB BLOOD ORDERAB LES Final Result Performing Organization Address [facility] Co de Phone Number [facility] [address] [place] [phone] * SARS-CoV-2 RNA, Influenza A/B, and RSV RNA, Ql NAAT (06/08/2025 5:01 PM EDT) Only the most recent of2 resultswithin the time period is included. Pathologist [facility] Influenza A PCR NEGATIVE Negative [facility] Influenza B PCR NEGATIVE Negative [facility] Resp Syncy Virus RNA Qual PCR NEGATIVE Negative [facility] SARS COV2 PCR NEGATIVE Negative [facility] Comment:All test results mus t be [...] use by authorized laboratories.Testing performed on the [employer] GeneXpert utilizingreal-time RT-PCR.All SARS CoV2 and positive influenza A/B results arereported to [facility]. 06/08/2025 5:01 PM EDT 06/08/2025 5:07 PM EDT us Generic External Data Provider LAB MICROBIOLOGY - GENERAL ORDERABLES Final Result Performing Organization Address City/[facility]/ZIP Co de Phone Number [facility] [address] [place] [phone] * (ABNORMAL) Hepatic Function Panel (06/08/2025 5:01 PM EDT) Only the most recent of4 resultswithin the time period is included. Bilirubin, Total 0.7 0.0 - 1.0 mg/dL [facility] Bilirubin, Direct 0.4 0.0 - 0.5 mg/dL [facility] Aspartate Amino Transferase 66(H) 5 - 37 U/L [facility] Alanine Aminotransferase 15 0 - 40 U/L [facility] Total Protein 7.8 6.5 - 8.0 g/dL [facility] Albumin Level 3.5 3.5 - 5.0 g/dL [facility] Alkaline Phosphatase 133(H) 39 - 117 U/L [facility] 06/08/2025 5:01 PM EDT 06/08/2025 5:05 PM EDT us Generic External Data Provider LAB BLOOD ORDERAB LES Final Result [facility] [address] [place] [phone] * (ABNORMAL) Basic Metabolic Panel (06/08/2025 5:01 PM EDT) Only the most recent of3 resultswithin the time period is included. Sodium 144 135 - 145 mmol/L [facility] Potassium 3.4 3.3 - 5.1 mmol/L [facility] Chloride 114(H) 96 - 108 mmol/L [facility] Carbon Dioxide 20(L) 22 - 29 mmol/L [facility] Anion Gap 13 12 - 20 [facility] Urea Nitrogen (BUN) 9 9 - 16 mg/dL [facility] Creatinine, Serum 0.66 0.5 - 1.4 mg/dL [facility] Creatinine Clr Calc Pharmacy 100.2 [facility] Comment:eGFR (calculated fro m the MDRD study equation) and eCrCl(calculated from the Cockcroft-Gault equation) are based ondifferent parameters and may not yield comparable results.If eCrCl result is absurd, please check patient'sheight/weight. Estimated Glomerular Filt Rate >60 [facility] Comment:Chronic Kidney Disea se: Estimated GFR < 60 mL/min/1.28v9Xcogdv Kidney Disease: Estimated GFR < 15 mL/min/1.73m2 Glucose 92 60 - 115 mg/dL [facility] Calcium 8.2(L) 8.4 - 10.2 mg/dL [facility] 06/08/2025 5:01 PM EDT 06/08/2025 5:05 PM EDT us Generic External Data Provider LAB BLOOD ORDERAB LES Final Result [facility] [address] [place] [phone] * (ABNORMAL) VENOUS BLOOD GAS (06/05/2025 11:59 AM EDT) VBG pH 7.41 7.32 - 7.43 [facility] Comment:METER #: [id number] additional_comment: Cbnievea VBG PCO2 29 mmHg [facility] Comment:METER #: [id number] additional_comment: Cb[facility]vea VBG PO2 109 mmHg [facility] Comment:METER #: [id number] additional_comment: Cbnievea VBG Base Excess -4.5 mmol/L [facility] Comment:METER #: [id number] additional_comment: Cbnievea VBG HCO3 19(L) 22 - 26 mmol/L [facility] Comment:METER #: [id number] additional_comment: Cbnievea O2 Sat, Demetrio 99.0 % [facility] Comment:METER #: [id number] additional_comment: Cbnievea 06/05/2025 11:5 9 AM EDT 06/05/2025 12:03 PM EDT Generic External Data Provider LAB BLOOD ORDERAB LES Final Result Performing Organization Address City/[facility] Co de Phone Number [facility] [address] [place] [phone] * (ABNORMAL) Creatine Kinase, Total (06/05/2025 11:54 AM EDT) Only the most recent of2 resultswithin the time period is included. Creatine Kinase Total 34(L) 38 - 174 U/L [facility] 06/05/2025 11:5 4 AM EDT 06/05/2025 11:57 AM EDT Generic External Data Provider LAB BLOOD ORDERAB LES Final Result Performing Organization Address [facility]/ZIP Co de Phone Number [facility] [address] [place] [phone] * VASC US Lower Extremity Venous Duplex Bilateral (05/23/2025 7:11 PM EDT) 05/23/2025 7:11 PM EDT Narrative [facility] - 05/23/2025 7:12 PM EDT [address] [address] Ultrasound Report Signed Patient: Charbel Delgado MR#: [id number] : 1970 Acct:[id number] Age/Sex: 55 / M ADM Date: 05/23/25 Loc: HO.ED Attending Dr: Ordering Physician: Dexter Foster Date of Service: 05/23/25 Procedure(s): US venous duplex LE BI Accession Number(s): [id number] cc: Dexter Foster; [facility] CLINICAL HISTORY: bilateral leg swelling Venous [...] in OV> 05/23/251910 DD/ 10 TD/TT: 05/23/251910 Mine Development Engineer: Procedure Note Donotuseinterpreter, Image - 05/23/[address] [address] Ultrasound Report Signed Patient: Rod DelgadoR#: [id number] : 1970Acct:[id number] Age/Sex: 55 / MADM Date: 05/23/25 Loc: HO.ED Attending Dr: Ordering Physician: Dexter Foster Date of Service: 05/23/25 Procedure(s): US venous duplex LE BI Accession Number(s): [id number] cc: Dexter Foster; [facility] CLINICAL HISTORY: bilateral leg swelling Venous [...] in OV> 05/23/251910 DD/ 10 TD/TT: 05/23/251910 Mine Development Engineer: [facility] External Provider CV VASC ULAR PROCEDURES Final Result Performing Organization Address City/[facility] Co de Phone Number [facility] [address] [place] [phone] * Lipase (05/23/2025 1:50 PM EDT) Lipase 21 8 - 78 U/L [facility] 05/23/2025 1:50 PM EDT 05/23/2025 1:53 PM EDT Generic External Data Provider LAB BLOOD ORDERAB LES Final Result Performing Organization Address [facility] de Phone Number [facility] [address] [place] [phone] * US VENOUS DUPLEX LE LT (05/13/2025 10:50 PM EDT) Anatomical Region Laterality Modality Abdomen Ultrasound 05/13/2025 10:5 0 PM EDT Narrative 05/13/2025 10:51 PM EDT [address] [address] Ultrasound Report Signed Patient: Charbel Delgado MR#: [id number] : 1970 Acct:[id number] Age/Sex: 55 / M ADM Date: 05/13/25 Loc: .ED Attending Dr: Ordering Physician: David Galvez PA-C Date of Service: 05/13/25 Procedure(s): US venous duplex LE LT Accession Number(s): [id number] cc: [facility]; David Galvez PA-C CLINICAL HISTORY: Swelling; [...] in OV> 05/13/252250 DD/ 49 TD/TT: 05/13/252249 Mine Development Engineer: Procedure Note Donotuseinterpreter, Image - 05/13/2025 [place] [address] Ultrasound Report Signed Patient: Isaias Delgado#: [id number] : 1970Acct:[id number] Age/Sex: 55 / MADM Date: 05/13/25 Loc: HO.ED Attending Dr: Ordering Physician: David Galvez PA-C Date of Service: 05/13/25 Procedure(s): US venous duplex LE LT Accession Number(s): [id number] cc: [facility]; David Galvez PA-C CLINICAL HISTORY: Swelling; [...] in OV> 05/13/252250 DD/ 49 TD/TT: 05/13/252249 Mine Development Engineer: [facility] External Provider IMG US PROCEDURES Final Result from Last 3 Months Insurance [facility] [place] PART[place] [facility] C3 [facility] [place] [facility] [place] Care Teams Lawnmower Repair Mechanic Relationship Specialty Start Date End Date Missy Milner RN [address] [place] [address] Registered Nurse Family Medicine 04/23/25 Conor Vidal 04/23/25
--- OUTSIDE RECORDS SUMMARY | 2025-08-02 04:32 | XMS_ITS | Encounter Summary ---
Author Organization [employer] Address [address] [place] [address] [place] [address] Care Team Providers Care Furniture Rental Consultant Name Role Phone Missy Milner RN Unavailable [phone] Conor Vidal Unavailable Encounter Details Date Type Department Care Team ([facility] st Contact Info) Description 06/19/2025 Results Follow-Up [facility] [address] [place] [address] Provider, Generic External Data XR Chest 2 [...] on filedocumented in this encounter Care Teams Furniture Rental Consultant Relationship Specialty Start Date End Date Missy Milner RN [address] [place] [address] Registered Nurse Family Medicine 04/23/25 Conor Vidal 04/23/25 documented as of this encounter
--- OUTSIDE RECORDS SUMMARY | 2025-08-02 04:32 | XMS_ITS | Encounter Summary ---
Author Organization [facility] Address [address] [facility] [address] [place] [address] Phone Care Team Providers Care Nc Machinist Name Role Phone [facility], [facility] Primary Care Provider Pcp, Unknown Unavailable Unavailable Encounter Details Date Type Department Care Team (Late st Contact Info) Description 02/02/2024 Procedure Pass [facility] Endoscopy Admitting Dept Virtual Department [address] [place] [address] Social History Tobacco Use Types Packs/Day Years [...] on filedocumented in this encounter Care Teams Nc Machinist Relationship Specialty Start Date End Date [facility] [address] [place] [address] PCP - General 10/07/23 Pcp, Unknown 10/07/23 documented as of this encounter Additional Source Comments The information contained in this document represents components of the legal health record. It is not the complete legal health record.[facility]
--- OUTSIDE RECORDS SUMMARY | 2025-08-02 04:32 | XMS_ITS | Clinical Summary ---
Author Organization [facility] Address [email or web address] [place] [address] Phone Care Team Providers Care Wood Carving Machine Operator Name Role Phone [facility], Facility Primary Care Provider Pcp, Unknown [...] magnesia). Active monobasic and dibasic sodium phosphates (18821 ENEMA) 19-7 gram/[address] 1 [...] Patient presented with altered mental status from [facility] where he appeared more lethargic than [...] EST) SODIUM 137 133 - 146 mmol/L [facility] POTASSIUM 4.5 3.3 - 5.1 mmol/L [facility] CHLORIDE 105 96 - 108 mmol/L [facility] CO2 22 21 - 35 mmol/L [facility] BUN 14 6 - 19 mg/dL [facility] CREATININE 0.80 0.5 - 1.5 mg/dL [facility] GLUCOSE 104(H) 70 - 99 mg/dL [facility] ALBUMIN 4.1 3.9 - 4.8 g/dL [facility] TOTAL PROTEIN 8.1(H) 6.5 - 8.0 g/dL [facility] CALCIUM 10.4(H) 8.4 - 10.3 mg/dL [facility] ALKALINE PHOSPHATASE 118(H) 39 - 117 U/L [facility] TOTAL BILIRUBIN 0.6 0.0 - 1.2 mg/dL [facility] AST 25 0 - 37 U/L [facility] ALT 7 0 - 40 U/L [facility] GLOBULIN 4.0 1 - 4.8 g/dL [facility] EGFR 105 >59 mL/min/1.7 3m2 [facility] Comment:Estimated glomerular filtration rate calculated using the CKD-EPI refit equation. ANION GAP 15 10 - 20 mmol/L [facility] Blood 01/04/2024 9:22 AM EST 01/04/2024 9:53 AM EST Missy WALLACE LAB BLOOD ORDERABLES Fin al Result Performing Organization Address City/[facility]/ZIP Co de Phone Number [address] [address] * Hepatitis C antibody, qualitative (01/04/2024 9:22 AM EST) HCV NON-REACTIV E NON-REACTI VE [facility] Blood 01/04/2024 9:22 AM EST 01/04/2024 9:53 AM EST Missy WALLACE LAB BLOOD ORDERABLES Fin al Result Performing Organization Address [facility] Co de Phone Number [address] [address] from Last 3 Months or Most Recently Relevant to Health Maintenance Insurance [facility] C3 ACO [facility] C3 ACO C3 ACO C3 ACO C3 [employer]CO [employer] [id number] [facility] C3 ACO [facility] C3 ACO Advance Directives For more information, please contact: [phone] (9AM - 5PM [facility], Monday-Monday) Documents on File Type Date Recorded 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 It is not the complete legal health record.[facility]
--- OUTSIDE RECORDS SUMMARY | 2025-08-02 04:32 | XMS_ITS ---
Author Organization [employer] Address [address] [place] [address] 7[address] [place] [address] Care Team Providers Care It Senior Software Engineer Java Name Role Phone Missy Milner RN Unavailable [phone] Conor Vidal Unavailable CM Complex Status:Outreach In Progress (Enrolling) Start date:04/23/2025 Enrollment reason:ADT Feed Overview ADT-admitted [facility] 04/22/25 Case Team Name Relationship Phone Missy Milner RN(Responsible Staff) Registered Nurse [phone] Continued Care and Services Coordination
--- OUTSIDE RECORDS SUMMARY | 2025-08-02 04:32 | XMS_ITS | Encounter Summary ---
Author Organization [employer] Address [address] [place] [address] [place] [address] Care Team Providers Care Laboratory Coordinator Name Role Phone Missy Milner RN Unavailable [phone] Conor Vidal Unavailable Encounter Details Date Type Department Care Team (Latest Contact Info) Description 06/19/2025 Results Follow-Up [facility] Information Management [address] [place] [address] External Provider, [facility] Chest w/ Contrast Social History Tobacco [...] on filedocumented in this encounter Care Teams Laboratory Coordinator Relationship Specialty Start Date End Date Missy Milner RN [address] [place] [address] Registered Nurse Family Medicine 04/23/25 Conor Vidal 04/23/25 documented as of this encounter
--- OUTSIDE RECORDS SUMMARY | 2025-08-02 04:32 | XMS_ITS | Encounter Summary ---
Author Organization [facility] Address [address] [facility] [address] [place] [address] Phone Care Team Providers Care Prosthodontist/Owner Name Role Phone Elbert Hayward MD Primary Care Provider [facility], [facility] Primary Care Provider Pcp, Unknown Unavailable Unavailable Encounter Details Date Type Department Care Team (Late st Contact Info) Description 10/06/2023 Procedure Pass [facility], Ct Scan - [address] [address] Social History Tobacco Use Types Packs/Day Years [...] on filedocumented in this encounter Care Teams Prosthodontist/Owner Relationship Specialty Start Date End Date Elbert Hayward MD PCP - General 05/13/14 10/06/23 [facility], MD Marya [address] [place] [address] PCP - General 10/07/23 Pcp, Unknown 10/07/23 documented as of this encounter Additional Source Comments The information contained in this document represents components of the legal health record. It is not the complete legal health record.[facility]
--- OUTSIDE RECORDS SUMMARY | 2025-08-02 04:32 | XMS_ITS | Encounter Summary ---
Author Organization [employer] Address [address] [place] [address] [place] [address] Care Team Providers Care Surveillance Director Name Role Phone Missy Milner RN Unavailable [phone] Conor Vidal Unavailable Encounter Details Date Type Department Care Team ([facility] st Contact Info) Description 06/09/2025 Results Follow-Up [facility] [address] [place] [address] Provider, Generic External Data XR Chest 1 [...] on filedocumented in this encounter Care Teams Surveillance Director Relationship Specialty Start Date End Date Missy Milner RN [address] [place] [address] Registered Nurse Family Medicine 04/23/25 Conor Vidal 04/23/25 documented as of this encounter
[2025-08-02 06:34] VITALS: BP 90/52; PULSE 78; RESP 18; TEMP 36.1; O2SAT 92
[2025-08-02 07:29] LABS: COVID-19 Test Negative (Negative)
[2025-08-02 07:33] LABS: IDNOW Serial# 58CA691E; Influenza B2 Negative (Negative)
[2025-08-02 07:42] VITALS: BP 00/00; PULSE 0; RESP 0; TEMP -17.7; TEMP 0
[2025-08-02 07:48] LABS: IDNOW Serial# 55D5AD1C
== END 2025-08-02 07:48 | disposition home or self-care (01) ==
PROVIDERS: Emergency Provider Emergency Medicine
DX: F10.129 Alcohol abuse with intoxication, unspecified (principal); Y90.9 Presence of alcohol in blood, level not specified; M25.572 Pain in left ankle and joints of left foot; R06.00 Dyspnea, unspecified; Z03.818 Encounter for observation for suspected exposure to other biological agents ruled out
CPT/HCPCS: 71046; 87502; 87635; 99283

== ENCOUNTER → 2025-08-02 03:47 | Outpatient (BNV) | payer MEDICAID, SELFPAY | PROVIDERS: Emergency Provider Emergency Medicine; Visit Provider Radiology Vascular & Interventional Radiology | DX: R91.8 Other nonspecific abnormal finding of lung field (principal) | CPT/HCPCS: 71046 ==

== ENCOUNTER 2025-08-14 14:45 | Inpatient (IN) | payer MEDICAID, SELFPAY ==
--- NOTE | ~2025-08-14 | XR_ITS ---
EXAMINATION: XR FOOT 3 OR MORE VIEWS RIGHT HISTORY: right foot pain COMPARISON: Comparison is made with the prior examination dated 11/27/2024. FINDINGS: Three views of the right foot are submitted. The bones are osteopenic. There is no fracture or dislocation. There is smooth periosteal reaction along the 1st metatarsal shaft. There is mild to moderate hallux valgus deformity of the great toe. There is degenerative change of the DIP and PIP joints as well as narrowing of the 1st MCP joint with a small erosion of the 1st metatarsal head. There are vascular calcifications. XR/XR foot RT min 3V IMPRESSION: Osteopenia. Degenerative changes as described. Mild smooth periosteal reaction along the 1st metatarsal shaft of uncertain variance. No fracture is seen. Electronically signed by: Dony Nunn MD 08/15/2025 08:31 AM EDT
--- NOTE | ~2025-08-14 | XR_ITS ---
EXAMINATION: XR CHEST CLINICAL INFORMATION: dyspnea COMPARISON: 08/02/2025 TECHNIQUE: Frontal view of the chest was obtained. FINDINGS: Pulmonary vessels are prominent with indistinct margins. There is curvilinear density in the mid third right lung zone. Heart size is enlarged. XR/XR chest 1V IMPRESSION: Cardiomegaly and suspected pulmonary vascular congestion. Electronically signed by: Elias Smith MD 08/14/2025 05:00 PM EDT
[2025-08-14 14:53] VITALS: BP 118/60; PULSE 78; O2SAT 94
[2025-08-14 14:56] VITALS: BP 124/76; PULSE 76; RESP 16; TEMP 36.6; O2SAT 95; BMI 25.2
--- NOTE | 2025-08-14 16:24 | ECG_ITS ---
Test Reason : SHORTNESS OF BREATH Blood Pressure : */* mmHG Vent. Rate : 78 BPM Atrial Rate : 78 BPM P-R Int : 156 ms QRS Dur : 88 ms QT Int : 436 ms P-R-T Axes : 60 4 1 degrees QTcB Int : 497 ms Normal sinus rhythm Prolonged QT Abnormal ECG When compared with ECG of 06-Jul-2025 18:01, No significant change was found Referred By: Frederick Nation Electronically Signed By: EDITA HALE
[2025-08-14 16:25] VITALS: BP 96/55; PULSE 78; RESP 16; TEMP 36.3; O2SAT 90
--- OUTSIDE RECORDS SUMMARY | 2025-08-14 16:38 | XMS_ITS | Encounter Summary ---
Author Organization [employer] Address [address] [place] [address] [place] [address] Care Team Providers Care Older Worker Specialist Name Role Phone Missy Milner RN Unavailable [phone] Conor Vidal Unavailable Encounter Details Date Type Department Care Team ([facility] st Contact Info) Description 06/09/2025 Results Follow-Up [facility] Information Management [address] [place] [address] Provider, Generic External Data XR Chest 1 [...] on filedocumented in this encounter Care Teams Older Worker Specialist Relationship Specialty Start Date End Date Missy Milner RN [address] [place] [address] Registered Nurse Family Medicine 04/23/25 08/04/25 Conor Vidal 04/23/25 08/04/25 documented as of this encounter
--- OUTSIDE RECORDS SUMMARY | 2025-08-14 16:38 | XMS_ITS | Encounter Summary ---
Author Organization [employer] Address [address] [place] [address] [place] [address] Care Team Providers Care Regional Training Manager Name Role Phone Missy Milner RN Unavailable [phone] Conor Vidal Unavailable Encounter Details Date Type Department Care Team (Latest Contact Info) Description 06/19/2025 Results Follow-Up [facility] Information Management [address] [place] [address] External Provider, [facility] CT Chest w/ Contrast Social History [...] on filedocumented in this encounter Care Teams Regional Training Manager Relationship Specialty Start Date End Date Missy Milner RN [address] [place] [address] Registered Nurse Family Medicine 04/23/25 08/04/25 Conor Vidal 04/23/25 08/04/25 documented as of this encounter
--- OUTSIDE RECORDS SUMMARY | 2025-08-14 16:38 | XMS_ITS | Encounter Summary ---
Author Organization [facility] Address [address] [facility] [address] [place] [address] Phone Care Team Providers Care Communications Consultant Name Role Phone [facility], [facility] Primary Care Provider Pcp, Unknown Unavailable Unavailable Encounter Details Date Type Department Care Team (Late st Contact Info) Description 02/02/2024 Procedure Pass [facility] Endoscopy Admitting Dept Virtual Department [address] [place] [address] Social History Tobacco Use Types Packs/Day Years [...] on filedocumented in this encounter Care Teams Communications Consultant Relationship Specialty Start Date End Date [facility] [address] [place] [address] PCP - General 10/07/23 Pcp, Unknown 10/07/23 documented as of this encounter Additional Source Comments The information contained in this document represents components of the legal health record. It is not the complete legal health record.[facility]
--- OUTSIDE RECORDS SUMMARY | 2025-08-14 16:38 | XMS_ITS | Encounter Summary ---
Author Organization [employer] Address [address] [place] [address] [place] [address] Care Team Providers Care Coordinator Of Rehabilitation Services Name Role Phone Missy Milner RN Unavailable [phone] Conor Vidal Unavailable Encounter Details Date Type Department Care Team ([facility] st Contact Info) Description 06/19/2025 Results Follow-Up [facility] Information Management [address] [place] [address] Provider, Generic External Data XR Chest 2 [...] on filedocumented in this encounter Care Teams Coordinator Of Rehabilitation Services Relationship Specialty Start Date End Date Missy Milner RN [address] [place] [address] Registered Nurse Family Medicine 04/23/25 08/04/25 Conor Vidal 04/23/25 08/04/25 documented as of this encounter
--- OUTSIDE RECORDS SUMMARY | 2025-08-14 16:38 | XMS_ITS | Clinical Summary ---
Author Organization [facility] Address [address] [place] [address] 7 [place] [address] Care Team Providers Care Graduating Machine Operator Name Role Phone Unavailable Primary Care Provider Unavailabl e Allergies No known active allergies Medications bisacodyl [...] bleed. Monitor for volume overload. Alcoholic cirrhosis (CMS/HCC) 10/31/2023 Overview (01/12/2024): Last Assessment & Plan: [...] was advised to avoid NSAIDs Hepatic encephalopathy (CMS/HCC) 10/06/2023 Overview (01/12/2024): Last Assessment & Plan: Patient presented with altered mental status from [facility] where he appeared more lethargic [...] Encounters Date Type Department Care Team Description 08/04/2025 Patient Outreach [facility] [address] [place] [address] Conor Vidal Care Coordination (C3/W Conor Vidal, TC #6 outreach_closed ) 07/21/2025 Patient Outreach [address] [address] Conor Vidal 07/08/2025 Patient Outreach [facility] [address] [place], [place] [phone] Missy Milner RN 07/07/2025 Telephone [facility] [address] [place] [address] Mihaela Zhong RN 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 ELECTRONIC EQUIPMENT SET 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 Appt 07/06/2025 Orders Only GENERIC EXTERNAL DATA DEPARTMENT Provider, Generic External Data 07/02/2025 Orders Only [facility] External Provider, [facility] 07/01/2025 Patient Outreach [address] [address] Missy Milner, LAURA Care Coordination (C3/W Conor Vidal, TC #5 initial outreach attempt_lvm) 06/19/2025 Results Follow-Up [facility] Information Management [address] [place] [phone] Provider, Generic External Data XR Chest 2 Views 06/19/2025 Results Follow-Up [facility] Information Management [address] [place] [phone] External Provider, [facility] CT Chest w/ Contrast 06/19/2025 Orders Only [facility] External Provider, [facility] 06/18/2025 Orders Only GENERIC EXTERNAL DATA DEPARTMENT Provider, Generic External Data 06/11/2025 Travel 06/09/2025 Results Follow-Up [facility] [address] [place] [address] Provider, Generic External Data XR Chest 1 View 06/08/2025 Orders Only GENERIC EXTERNAL DATA DEPARTMENT Provider, Generic External Data 06/05/2025 Orders Only GENERIC EXTERNAL DATA DEPARTMENT Provider, Generic External Data 05/30/2025 Patient Outreach [facility] [address] [place] [address] Missy Milner RN Care Coordination (C3/CHW Conor Vidal, TC #4 Initial outreach attempt_lvm ) 05/23/2025 Orders Only GENERIC EXTERNAL DATA DEPARTMENT Provider, Generic External Data 05/21/2025 Orders Only GENERIC EXTERNAL DATA DEPARTMENT Provider, Generic External Data 05/19/2025 Patient Outreach [facility] [address] [place] [address] Missy Milner RN from Last 3 Months Immunizations Immunization Administration Dates Next Due Vidder SARS-CoV-2 Vaccination 04/28/2021 Pfizer Covid-19 Vaccine 12+ [...] SCREEN, URINE Routine 05/21/2025 9:02 PM EDT from Last 3 Months Results * XR Chest 1 View (07/06/2025 7:16 PM EDT) Only the most recent of4 resultswithin the time period is included. Anatomical Region Laterality Modality Chest Radiographic Lamar ging 07/06/2025 7:16 PM EDT Narrative 07/06/2025 7:18 PM EDT [address] [address] XRay Report Signed Patient: Charbel Delgado MR#: [id number] : 1970 Acct:[id number] Age/Sex: 55 / M ADM Date: 07/06/25 Loc: HO.ED Attending Dr: Ordering Physician: Maryann Cee Date of Service: 07/06/25 Procedure(s): XR chest 1V Accession Number(s): [id number] cc: [facility]; Maryann Cee CLINICAL HISTORY: hypoxia 1 [...] in OV> 07/06/251916 DD/ 15 TD/TT: 07/06/251915 Distribution Accounting Clerk: Procedure Note Donotuseinterpreter, Image - 07/06/[address] [address] XRay Report Signed Patient: Rod DelgadoR#: [id number] : 1970Acct:[id number] Age/Sex: 55 / MADM Date: 07/06/25 Loc: HO.ED Attending Dr: Ordering Physician: Maryann Cee Date of Service: 07/06/25 Procedure(s): XR chest 1V Accession Number(s): [id number] cc: [facility]; Maryann Cee CLINICAL HISTORY: hypoxia 1 [...] in OV> 07/06/251916 DD/ 15 TD/TT: 07/06/251915 Distribution Accounting Clerk: [facility] External Provider IMG XR PROCEDURES Edited Result - Final * (ABNORMAL) Drug Monitoring, Panel 1, Screen, Urine (07/06/2025 6:08 PM EDT) Only the most recent of3 resultswithin the time period is included. Opiate Screen Urine Not Detected Not Detect [facility] Comment:Opiate cut-off is 30 0 ng/mL.Positive results are unconfirmed and should not be used fornon-medical purposes. Barbiturates, Urine POSITIVE(A) Not Detect [facility] Comment:Barbiturate cut-off is 200 ng/mL.Positive results are unconfirmed and should not be used fornon-medical purposes. Phencyclidine Screen Urine Not Detected Not Detect [facility] Comment:Phencyclidine cut-of f is 25 ng/mL.Positive results are unconfirmed and should not be used fornon-medical purposes. Amphetamine Screen Urine Not Detected Not Detect [facility] Comment:Amphetamine cut-off is 1000 ng/mL.Positive results are unconfirmed and should not be used fornon-medical purposes. Benzodiazepines Screen Urine Not Detected Not Detect [facility] Comment:Benzodiazepine cut-o ff is 200 ng/mL.Positive results are unconfirmed and should not be used fornon-medical purposes. Cocaine Screen Urine Not Detected Not Detect [facility] Comment:Cocaine cut-off is 3 00 ng/mL.Positive results are unconfirmed and should not be used fornon-medical purposes. Cannabinoid Screen Urine Not Detected Not Detect [facility] Comment:Cannabinoid cut-off is 50 ng/mL.Positive results are unconfirmed and should not be used fornon-medical purposes. Methadone Screen, Urine Not Detected Not Detect ng/mL [facility] Comment:Methadone cut-off is 300 ng/mL.Positive results are unconfirmed and should not be used fornon-medical purposes. FENTANYL URINE Not Detected Not Detect [facility] Comment:Fentanyl cut-off is 1 ng/mL.Positive results are unconfirmed and should not be used fornon-medical purposes. Oxycodone Urine Screen Not Detected Not Detect ng/mL [facility] Comment:Oxycodone cut-off is 100 ng/mL.Positive results are unconfirmed and should not be used fornon-medical purposes. Buprenorphine Screen Not Detected Not Detect ng/mL [facility] Comment:Buprenorphine cut-of f is 5 ng/mL.Positive results are unconfirmed and should not be used fornon-medical purposes. 07/06/2025 6:08 PM EDT 07/06/2025 6:11 PM EDT us Generic External Data Provider LAB URINE ORDERAB LES Final Result Performing Organization Address City/State/[facility] Co de Phone Number [facility] [address] [place] [phone] * High Sensitivity Troponin I (07/06/2025 5:58 PM EDT) Only the most recent of6 resultswithin the time period is included. TROPONIN I HIGH SENSITIVITY <2.7 <3.5 - 35.0 ng/L [facility] Comment:The Connolly high sens itivity Troponin-I results should beused in conjunction with other diagnostic information suchas ECG, clinical observations and information, and patientsymptoms to aid in the diagnosis of [place]. 07/06/2025 5:58 PM EDT 07/06/2025 6:06 PM EDT Generic External Data Provider LAB BLOOD ORDERAB LES Final Result Performing Organization Address [facility] de Phone Number [facility] [address] [place] [phone] * (ABNORMAL) Ethanol (07/06/2025 5:58 PM EDT) Only the most recent of5 resultswithin the time period is included. ETHANOL (MG/DL) IN SER/PLAS 399(HH) mg/dL [facility] Comment:Serum/plasma ethanol results are to be used formedical/treatment purposes only. 07/06/2025 5:58 PM EDT 07/06/2025 6:06 PM EDT Generic External Data Provider LAB BLOOD ORDERAB LES Final Result Performing Organization Address [facility] Co de Phone Number [facility] [address] [place] [phone] * (ABNORMAL) CBC auto differential (07/06/2025 5:58 PM EDT) Only the most recent of5 resultswithin the time period is included. White Blood Count 3.8(L) 4.8 - 10.8 X10*3/uL [facility] Red Blood Count 3.19(L) 4.60 - 5.80 X10*6/uL [facility] Hemoglobin 9.9(L) 14.0 - 18.0 g/dl [facility] Hematocrit 29.9(L) 42.0 - 52.0 % [facility] Mean Corpuscular Volume 93.7 80.0 - 98.0 fL [facility] Mean Corpuscular Hemoglobin 31.0 27.0 - 33.0 pg [facility] Mean Corpuscular HGB Conc 33.1 31.0 - 36.0 g/dl [facility] Red Cell Distribution Width 17.9(H) 11.0 - 16.0 % [facility] Platelet Count 60(L) 160 - 400 X10*3/uL [facility] Mean Platelet Volume 11.8 9.4 - 12.4 fL [facility] Neutrophils Percent Auto 55.0 45 - 73 % [facility] Imm Gran Pct Auto 0.5(H) 0.0 - 0.4 % [facility] Lymphocytes Percent Auto 30.6 20 - 40 % [facility] Monocytes Percent Auto 8.8 2 - 11 % [facility] Eosinophils Percent Auto 3.5 0 - 4 % [facility] Basophils Percent Auto 1.6 0 - 2 % [facility] NRBC Pct Auto 0.0 0.0 - 0.2 /100WBC [facility] Neutrophils Absolute Auto 2.1 2.0 - 8.3 x10*3/uL [facility] Imm Gran Abs Auto 0.02 0.00 - 0.03 X10*3/uL [facility] Lymphocytes Absolute Auto 1.2 1.2 - 4.9 X10*3/uL [facility] Monocytes Absolute Auto 0.3 0.1 - 1.2 X10*3/uL [facility] Eosinophils Absolute Auto 0.1 0.0 - 0.4 X10*3/uL [facility] Basophils Absolute Auto 0.1 0.0 - 0.2 X10*3/uL [facility] NRBC Abs Auto 0.000 0.0 - 0.012 X10*3/uL [facility] 07/06/2025 5:58 PM EDT 07/06/2025 6:06 PM EDT us Generic External Data Provider LAB BLOOD ORDERAB LES Final Result [facility] [address] [place] [phone] * B Type Natriuretic Peptide (BNP) (07/06/2025 5:58 PM EDT) Only the most recent of5 resultswithin the time period is included. B Type Natriuretic Peptide 100 <100 pg/mL [facility] 07/06/2025 5:58 PM EDT 07/06/2025 6:06 PM EDT us Generic External Data Provider LAB BLOOD ORDERAB LES Final Result [facility] [address] [place] [address] [phone] * (ABNORMAL) Comprehensive Metabolic Panel (07/06/2025 5:58 PM EDT) Only the most recent of3 resultswithin the time period is included. Pathologist [facility] Sodium 143 135 - 145 mmol/L [facility] Potassium 3.6 3.3 - 5.1 mmol/L [facility] Chloride 112(H) 96 - 108 mmol/L [facility] Carbon Dioxide 18(L) 22 - 29 mmol/L [facility] Anion Gap 17 12 - 20 [facility] Urea Nitrogen (BUN) 10 9 - 16 mg/dL [facility] Creatinine, Serum 0.95 0.5 - 1.4 mg/dL [facility] Creatinine Clr Calc Pharmacy 69.6 [facility] Comment:eGFR (calculated fro m the MDRD study equation) and eCrCl(calculated from the Cockcroft-Gault equation) are based ondifferent parameters and may not yield comparable results.If eCrCl result is absurd, please check patient'sheight/weight. Estimated Glomerular Filt Rate >60 [facility] Comment:Chronic Kidney Disea se: Estimated GFR < 60 mL/min/1.42g7Lhbbll Kidney Disease: Estimated GFR < 15 mL/min/1.73m2 Glucose 110 60 - 115 mg/dL [facility] Calcium 8.1(L) 8.4 - 10.2 mg/dL [facility] Bilirubin, Total 0.6 0.0 - 1.0 mg/dL [facility] Aspartate Amino Transferase 51(H) 5 - 37 U/L [facility] Alanine Aminotransferase 11 0 - 40 U/L [facility] Total Protein 8.0 6.5 - 8.0 g/dL [facility] Albumin Level 3.5 3.5 - 5.0 g/dL [facility] Alkaline Phosphatase 158(H) 39 - 117 U/L [facility] 07/06/2025 5:58 PM EDT 07/06/2025 6:06 PM EDT us Generic External Data Provider LAB BLOOD ORDERAB LES Final Result Performing Organization Address City/State/[facility] Co de Phone Number [facility] [address] [place] [phone] * CT Chest w/ Contrast (06/19/2025 4:46 AM EDT) Anatomical Region Laterality Modality Body, Chest Computed Tomogra phy 06/19/2025 4:46 AM EDT Narrative 06/19/2025 4:48 AM EDT [address] [address] [address] Scan Report Signed Patient: Charbel Delgado MR#: [id number] : 1970 Acct:[id number] Age/Sex: 55 / M ADM Date: 06/19/25 Loc: [place] [address]: Mercedes Hogan MD Ordering Physician: David Galvez PA-C Date of Service: 06/19/25 Procedure(s): CT chest w IV con Accession Number(s): [id number] cc: [facility]; David Galvez PA-C Report Number: [id number]: Total DLP = 265.00 mGy-cm CLINICAL HISTORY: [...] in OV> 06/19/25446 DD/ 5 TD/TT: 06/19/25445 Distribution Accounting Clerk: Procedure Note Donotuseinterpreter, Image - 06/19/[address] [place] [address] [address] Scan Report Signed Patient: Isaias Delgado#: [id number] : 1970Acct:[id number] Age/Sex: 55 / MADM Date: 06/19/25 [facility]: Mercedes Hogan MD Ordering Physician: David Galvez PA-C Date of Service: 06/19/25 Procedure(s): CT chest w IV con Accession Number(s): [id number] cc: [facility]; David Galvez PA-C Report Number: [id number]: Total DLP = 265.00 mGy-cm CLINICAL HISTORY: [...] in OV> 06/19/25446 DD/ 5 TD/TT: 06/19/25445 Distribution Accounting Clerk: [facility] External Provider IMG CT PROCEDURES Edited Result - Final * Lactic Acid (06/18/2025 11:49 PM EDT) Lactic Acid 1.8 0.5 - 2.0 mmol/L [facility] 06/18/2025 11:4 9 PM EDT 06/19/2025 Generic External Data Provider LAB BLOOD ORDERAB LES Final Result [facility] [address] [place] [phone] * XR Chest 2 Views (06/18/2025 11:47 PM EDT) Only the most recent of2 resultswithin the time period is included. Anatomical Region Laterality Modality Chest Radiographic Lamar ging 06/18/2025 11:4 7 PM EDT Narrative 06/18/2025 11:48 PM EDT [address] [address] XRay Report Signed Patient: Charbel Delgado MR#: [id number] : 1970 Acct:[id number] Age/Sex: 55 / M ADM Date: 06/18/25 Loc: HO.ED Attending Dr: Ordering Physician: David Galvez PA-C Date of Service: 06/18/25 Procedure(s): XR chest 2V Accession Number(s): [id number] cc: [facility]; David Galvez PA-C CLINICAL HISTORY: Hypoxia [...] Oskar Tariq MD in OV> 06/18/258 DD/ TD/TT: 06/18/25 234 Distribution Accounting Clerk: Procedure Note Donotuseinterpreter, Image - 06/19/[address] [address] XRay Report Signed Patient: Rod DelgadoR#: [id number] : 1970Acct:[id number] Age/Sex: 55 / MADM Date: 06/18/25 Loc: HO.ED Attending Dr: Ordering Physician: David Galvez PA-C Date of Service: 06/18/25 Procedure(s): XR chest 2V Accession Number(s): [id number] cc: [facility]; David Galvez PA-C CLINICAL HISTORY: Hypoxia [...] in OV> 06/18/258 DD/ 46 TD/TT: 06/18/252346 Distribution Accounting Clerk: [facility] External Provider IMG XR PROCEDURES Edited Result - Final * Slide Review (06/18/2025 9:19 PM EDT) Slide Review VERIFIED [facility] 06/18/2025 9:19 PM EDT 06/18/2025 9:27 PM EDT us Generic External Data Provider LAB BLOOD ORDERAB LES Final Result [facility] [address] [place] [phone] * Magnesium (06/18/2025 9:19 PM EDT) Only the most recent of4 resultswithin the time period is included. Magnesium 1.6 1.6 - 2.6 mg/dL [facility] 06/18/2025 9:19 PM EDT 06/18/2025 9:27 PM EDT Generic External Data Provider LAB BLOOD ORDERAB LES Final Result Performing Organization Address [facility] Co de Phone Number [facility] [address] [place] [phone] * (ABNORMAL) Lactic Acid (06/18/2025 9:19 PM EDT) Lactic Acid 2.4(HH) 0.5 - 2.0 mmol/L [facility] Comment:Critical value for t est(s): LACTA Results called to gildardo back by: PATRICIA Person calling: [email or web address] Date: 06/18/25Time:2153 06/18/2025 9:19 PM EDT 06/18/2025 9:27 PM EDT Generic External Data Provider LAB BLOOD ORDERAB LES Final Result Performing Organization Address [facility] Co de Phone Number [facility] [address] [place] [phone] * SARS-CoV-2 RNA, Influenza A/B, and RSV RNA, Ql NAAT (06/08/2025 5:01 PM EDT) Only the most recent of2 resultswithin the time period is included. Influenza A PCR NEGATIVE Negative [facility] Influenza B PCR NEGATIVE Negative [facility] Resp Syncy Virus RNA Qual PCR NEGATIVE Negative [facility] SARS COV2 PCR NEGATIVE Negative [facility] Comment:All test results mus t [...] use by authorized laboratories.Testing performed on the [employer] GeneXpert utilizingreal-time RT-PCR.All SARS CoV2 and positive influenza A/B results arereported to [facility]. 06/08/2025 5:01 PM EDT 06/08/2025 5:07 PM EDT Generic External Data Provider LAB MICROBIOLOGY - GENERAL ORDERABLES Final Result Performing Organization Address City/[facility]/ZIP Co de Phone Number [facility] [address] [place] [phone] * (ABNORMAL) Hepatic Function Panel (06/08/2025 5:01 PM EDT) Only the most recent of3 resultswithin the time period is included. Bilirubin, Total 0.7 0.0 - 1.0 mg/dL [facility] Bilirubin, Direct 0.4 0.0 - 0.5 mg/dL [facility] Aspartate Amino Transferase 66(H) 5 - 37 U/L [facility] Alanine Aminotransferase 15 0 - 40 U/L [facility] Total Protein 7.8 6.5 - 8.0 g/dL [facility] Albumin Level 3.5 3.5 - 5.0 g/dL [facility] Alkaline Phosphatase 133(H) 39 - 117 U/L [facility] 06/08/2025 5:01 PM EDT 06/08/2025 5:05 PM EDT Generic External Data Provider LAB BLOOD ORDERAB LES Final Result Performing Organization Address [facility] Co de Phone Number [facility] [address] [place] [phone] * (ABNORMAL) Basic Metabolic Panel (06/08/2025 5:01 PM EDT) Only the most recent of2 resultswithin the time period is included. Sodium 144 135 - 145 mmol/L [facility] Potassium 3.4 3.3 - 5.1 mmol/L [facility] Chloride 114(H) 96 - 108 mmol/L [facility] Carbon Dioxide 20(L) 22 - 29 mmol/L [facility] Anion Gap 13 12 - 20 [facility] Urea Nitrogen (BUN) 9 9 - 16 mg/dL [facility] Creatinine, Serum 0.66 0.5 - 1.4 mg/dL [facility] Creatinine Clr Calc Pharmacy 100.2 [facility] Comment:eGFR (calculated fro m the MDRD study equation) and eCrCl(calculated from the Cockcroft-Gault equation) are based ondifferent parameters and may not yield comparable results.If eCrCl result is absurd, please check patient'sheight/weight. Estimated Glomerular Filt Rate >60 [facility] Comment:Chronic Kidney Disea se: Estimated GFR < 60 mL/min/1.93l2Olsaxo Kidney Disease: Estimated GFR < 15 mL/min/1.73m2 Glucose 92 60 - 115 mg/dL [facility] Calcium 8.2(L) 8.4 - 10.2 mg/dL [facility] 06/08/2025 5:01 PM EDT 06/08/2025 5:05 PM EDT us Generic External Data Provider LAB BLOOD ORDERAB LES Final Result [facility] [address] [place] [phone] [phone] * (ABNORMAL) VENOUS BLOOD GAS (06/05/2025 11:59 AM EDT) VBG pH 7.41 7.32 - 7.43 [facility] Comment:METER #: [id number] additional_comment: Cbnievea VBG PCO2 29 mmHg [facility] Comment:METER #: [id number] additional_comment: Cbnievea VBG PO2 109 mmHg [facility] Comment:METER #: [id number] additional_comment: Cbnievea VBG Base Excess -4.5 mmol/L [facility] Comment:METER #: [id number] additional_comment: Cbnievea VBG HCO3 19(L) 22 - 26 mmol/L [facility] Comment:METER #: [id number] additional_comment: Cbnievea O2 Sat, Demetrio 99.0 % [facility] Comment:METER #: [id number] additional_comment: Cbnievea 06/05/2025 11:5 9 AM EDT 06/05/2025 12:03 PM EDT us Generic External Data Provider LAB BLOOD ORDERAB LES Final Result Performing Organization Address City/[facility]/ZIP Co de Phone Number [facility] [address] [place] [address] [phone] * (ABNORMAL) Creatine Kinase, Total (06/05/2025 11:54 AM EDT) Creatine Kinase Total 34(L) 38 - 174 U/L [facility] 06/05/2025 11:5 4 AM EDT 06/05/2025 11:57 AM EDT Generic External Data Provider LAB BLOOD ORDERAB LES Final Result Performing Organization Address City/[facility] Co de Phone Number [facility] [address] [place] [address] [phone] * VASC US Lower Extremity Venous Duplex Bilateral (05/23/2025 7:11 PM EDT) 05/23/2025 7:11 PM EDT Narrative [facility] - 05/23/2025 7:12 PM EDT [address] [address] Ultrasound Report Signed Patient: Charbel Delgado MR#: [id number] : 1970 Acct:[id number] Age/Sex: 55 / M ADM Date: 05/23/25 Loc: HO.ED Attending Dr: Ordering Physician: Dexter Foster Date of Service: 05/23/25 Procedure(s): US venous duplex LE BI Accession Number(s): [id number] cc: Dexter Foster; [facility] CLINICAL HISTORY: bilateral leg swelling Venous [...] in OV> 05/23/251910 DD/ 10 TD/TT: 05/23/251910 Distribution Accounting Clerk: Procedure Note Donotuseinterpreter, Image - 05/23/2025 [place] [address] Ultrasound Report Signed Patient: Isaias Delgado#: [id number] : 1970Acct:[id number] Age/Sex: 55 / MADM Date: 05/23/25 Loc: .ED Attending Dr: Ordering Physician: Dexter Foster Date of Service: 05/23/25 Procedure(s): US venous duplex LE BI Accession Number(s): [id number] cc: Dexter Foster; [facility] CLINICAL HISTORY: bilateral leg swelling Venous [...] in OV> 05/23/251910 DD/ 10 TD/TT: 05/23/251910 Distribution Accounting Clerk: [facility] External Provider CV VASC ULAR PROCEDURES Final Result [facility] [address] [place] [address] * Lipase (05/23/2025 1:50 PM EDT) Lipase 21 8 - 78 U/L [facility] 05/23/2025 1:50 PM EDT 05/23/2025 1:53 PM EDT us Generic External Data Provider LAB BLOOD ORDERAB LES Final Result Performing Organization Address City/[facility]/ZIP Co de Phone Number [facility] [address] [place] [address] [phone] from Last 3 Months Insurance [employer] [id number] [place] [address] [address] [place] [address]
--- OUTSIDE RECORDS SUMMARY | 2025-08-14 16:38 | XMS_ITS | Encounter Summary ---
Author Organization [facility] Address [address] [facility] [address] [place] [address] Phone Care Team Providers Care Hip Hop Performers Name Role Phone [facility], [facility] Primary Care Provider Pcp, Unknown Unavailable Unavailable Encounter Details Date Type Department Care Team ([facility] st Contact Info) Description 10/31/2023 Procedure Pass [facility] Endoscopy Admitting Dept Virtual Department [address] [place] [id number] Social History Tobacco Use Types Packs/Day Years [...] on filedocumented in this encounter Care Teams Hip Hop Performers Relationship Specialty Start Date End Date [facility] [address] [place] [address] PCP - General 10/07/23 Pcp, Unknown 10/07/23 documented as of this encounter Additional Source Comments The information contained in this document represents components of the legal health record. It is not the complete legal health record.[facility]
--- OUTSIDE RECORDS SUMMARY | 2025-08-14 16:38 | XMS_ITS | Encounter Summary ---
Author Organization [facility] Address [address] [facility] [address] [place] [address] Phone Care Team Providers Care Pad Machine Offbearer Name Role Phone Elbert Hayward MD Primary Care Provider [facility], [facility] Primary Care Provider Pcp, Unknown Unavailable Unavailable Encounter Details Date Type Department Care Team (Late st Contact Info) Description 10/06/2023 Procedure Pass [facility], Ct Scan - [address] [address] Social History Tobacco Use Types Packs/Day Years [...] on filedocumented in this encounter Care Teams Pad Machine Offbearer Relationship Specialty Start Date End Date Elbert Hayward MD PCP - General 05/13/14 10/06/23 [facility], MD Marya [address] [place] [address] PCP - General 10/07/23 Pcp, Unknown 10/07/23 documented as of this encounter Additional Source Comments The information contained in this document represents components of the legal health record. It is not the complete legal health record.[facility]
--- OUTSIDE RECORDS SUMMARY | 2025-08-14 16:39 | XMS_ITS | Encounter Summary ---
Author Organization [facility] Address [address] [facility] [address] [place] [address] Phone Care Team Providers Care Training And Development Manager Name Role Phone [facility], [facility] Primary Care Provider Pcp, Unknown Unavailable Unavailable Encounter Details Date Type Department Care Team (Late st Contact Info) Description 01/04/2024 Transcribe Orders [facility] Laboratory [address] [place] [address] Missy Miranda PA [address] [place] [phone] [email or web address] Need for hepatitis C screening test (Primary [...] EST) FERRITIN 168 30 - 400 ug/L [facility] Blood 01/04/2024 9:22 AM EST 01/04/2024 9:53 AM EST Missy WALLACE LAB BLOOD ORDERABLES Fin al Result Performing Organization Address City/[facility] Co de Phone Number [address] [address] * (ABNORMAL) PT-INR (01/04/2024 9:22 AM EST) [facility] PT 15.9(H) 10.2 - 12.9 sec [facility] INR 1.4(H) 0.9 - 1.1 [facility] Comment:Therapeutic range fo r oral Vitamin K antagonists: 2.0-3.5 Blood 01/04/2024 9:22 AM EST 01/04/2024 9:53 AM EST Missy WALLACE LAB BLOOD ORDERABLES Fin al Result Performing Organization Address City/[facility]/ZIP Co de Phone Number [address] [address] * Iron and iron binding capacity (01/04/2024 9:22 AM EST) IRON 81 45 - 160 ug/dL [facility] IRON BINDING CAPACITY 326 228 - 428 ug/dL [facility] TRANSFERRIN SATURAT. 25 20 - 55 % [facility] Blood 01/04/2024 9:22 AM EST 01/04/2024 9:53 AM EST Missy WALLACE LAB BLOOD ORDERABLES Fin al Result Performing Organization Address [facility] de Phone Number [address] [address] * Lipase (01/04/2024 9:22 AM EST) LIPASE 35 16 - 63 U/L [facility] Blood 01/04/2024 9:22 AM EST 01/04/2024 9:53 AM EST Missy WALLACE LAB BLOOD ORDERABLES Fin al Result Performing Organization Address [facility] de Phone Number [address] [address] * Hepatitis C antibody, qualitative (01/04/2024 9:22 AM EST) HCV NON-REACTIV E NON-REACTI VE [facility] Blood 01/04/2024 9:22 AM EST 01/04/2024 9:53 AM EST Missy WALLACE LAB BLOOD ORDERABLES Fin al Result Performing Organization Address [facility] de Phone Number [address] [address] * Hepatitis B surface antibody (01/04/2024 9:22 AM EST) HBV SURFACE ANTIBODY Negative [facility] Comment: Unvaccinated: Negative Vaccinated: Positive Blood 01/04/2024 9:22 AM EST 01/04/2024 9:53 AM EST Missy WALLACE LAB BLOOD ORDERABLES Fin al Result Performing Organization Address City/[facility]/ZIP Co de Phone Number [address] [address] * Hepatitis B surface antigen (01/04/2024 9:22 AM EST) HBV SURFACE ANTIGEN NON-REACTI VE NON-REACTI VE [facility] Blood 01/04/2024 9:22 AM EST 01/04/2024 9:53 AM EST Missy WALLACE LAB BLOOD ORDERABLES Fin al Result Performing Organization Address [facility] Co de Phone Number [address] [address] * Hepatitis B core antibody, total (01/04/2024 9:22 AM EST) HEP B CORE AB, TOT NON-REACTI VE NON-REACTI VE [facility] Blood 01/04/2024 9:22 AM EST 01/04/2024 9:53 AM EST Missy WALLACE LAB BLOOD ORDERABLES Fin al Result Performing Organization Address [facility] Co de Phone Number [address] [address] * HEPATITIS A ANTIBODY, TOTAL (01/04/2024 9:22 AM EST) HAV TOTAL AB NON-REACTI VE NON-REACTI VE [facility] Blood 01/04/2024 9:22 AM EST 01/04/2024 9:53 AM EST Missy WALLACE LAB BLOOD ORDERABLES Fin al Result Performing Organization Address [facility] Co de Phone Number [address] [address] * (ABNORMAL) GGT (Gamma glutamyl transferase) (01/04/2024 9:22 AM EST) GGT 54(H) 11 - 51 U/L [facility] Blood 01/04/2024 9:22 AM EST 01/04/2024 9:53 AM EST Missy WALLACE LAB BLOOD ORDERABLES Fin al Result [address] [address] * C-Reactive Protein (01/04/2024 9:22 AM EST) Pathologist [facility] C REACTIVE PROTEIN <3.0 0.0 - 4.0 mg/L [facility] Blood 01/04/2024 9:22 AM EST 01/04/2024 9:53 AM EST Missy WALLACE LAB BLOOD ORDERABLES Fin al Result Performing Organization Address City/[facility] Co de Phone Number [address] [address] * (ABNORMAL) Comprehensive metabolic panel (01/04/2024 9:22 AM EST) Pathologist [facility] SODIUM 137 133 - 146 mmol/L [facility] POTASSIUM 4.5 3.3 - 5.1 mmol/L [facility] CHLORIDE 105 96 - 108 mmol/L [facility] CO2 22 21 - 35 mmol/L [facility] BUN 14 6 - 19 mg/dL [facility] CREATININE 0.80 0.5 - 1.5 mg/dL [facility] GLUCOSE 104(H) 70 - 99 mg/dL [facility] ALBUMIN 4.1 3.9 - 4.8 g/dL [facility] TOTAL PROTEIN 8.1(H) 6.5 - 8.0 g/dL [facility] CALCIUM 10.4(H) 8.4 - 10.3 mg/dL [facility] ALKALINE PHOSPHATASE 118(H) 39 - 117 U/L [facility] TOTAL BILIRUBIN 0.6 0.0 - 1.2 mg/dL [facility] AST 25 0 - 37 U/L [facility] ALT 7 0 - 40 U/L [facility] GLOBULIN 4.0 1 - 4.8 g/dL [facility] EGFR 105 >59 mL/min/1.7 3m2 [facility] Comment:Estimated glomerular filtration rate calculated using the CKD-EPI refit equation. ANION GAP 15 10 - 20 mmol/L [facility] Blood 01/04/2024 9:22 AM EST 01/04/2024 9:53 AM EST us Missy WALLACE LAB BLOOD ORDERABLES Fin al Result Performing Organization Address City/State/[facility] Co de Phone Number [address] [address] * (ABNORMAL) CBC and differential (01/04/2024 9:22 AM EST) WBC 3.17(L) 4.00 - 11.00 K/uL [facility] RBC 3.41(L) 4.23 - 5.82 M/uL [facility] HGB 10.7(L) 13.4 - 17.5 g/dL [facility] HCT 33.8(L) 37.0 - 51.0 % [facility] PLT 64(L) 140 - 430 K/uL [facility] Comment:Consistent with prev ious result. MCV 99.1(H) 78.0 - 97.0 fL [facility] MCH 31.4 25.0 - 33.0 pg [facility] MCHC 31.7(L) 32.0 - 36.0 g/dL [facility] RDW 13.0 11.0 - 15.0 % [facility] MPV 13.2(H) 8.4 - 12.8 fl [facility] DIFF METHOD Auto [facility] NEUTS 57.2 43.0 - 75.0 % [facility] LYMPHS 24.9 18.2 - 47.4 % [facility] MONOS 12.0(H) 4.00 - 11.00 % [facility] EOS 4.7 0.0 - 8.0 % [facility] BASOS 0.9 0.0 - 2.0 % [facility] Granulocytes, immature (%) 0.3 0.0 - 0.9 % [facility] ABSOLUTE NEUTS 1.81 1.80 - 7.70 K/uL [facility] ABSOLUTE LYMPHS 0.79(L) 1.00 - 3.10 K/uL [facility] ABSOLUTE MONOS 0.38 0.20 - 0.80 K/uL [facility] ABSOLUTE EOS 0.15 0.00 - 0.80 K/uL [facility] ABSOLUTE BASOS 0.03 0.00 - 0.09 K/uL [facility] Granulocytes, immature 0.01 0.00 - 0.05 K/uL [facility] Blood 01/04/2024 9:22 AM EST 01/04/2024 9:53 AM EST Missy WALLACE LAB BLOOD ORDERABLES Fin al Result [address] [address] * (ABNORMAL) Immunoglobulin A (01/04/2024 9:22 AM EST) Pathologist [facility] IgA 436(H) 70 - 400 mg/dL [facility] Blood 01/04/2024 9:22 AM EST 01/04/2024 9:53 AM EST [facility] Nathaly Miranda [place] LAB BLOOD ORDERABLES Fin al Result [address] [address] * Tissue transglutaminase IgA (01/04/2024 9:22 AM EST) TTG IGA ANTIBODY 1.9 <4.0 (Negative) U/mL [facility] MED/PATH [address] Blood 01/04/2024 9:22 AM EST 01/04/2024 9:53 AM EST Missy WALLACE LAB BLOOD ORDERABLES Fin al Result [facility] [address] [place] [address] * Smooth Muscle Antibody (01/04/2024 9:22 AM EST) SMOOTH MUSCLE AB POSITIVE AT 1:20 [facility] Comment: Performing Physician, Max Jimenez M.D., [id number] Normal: Negative at 1:20 Blood 01/04/2024 9:22 AM EST 01/04/2024 9:53 AM EST Missy WALLACE LAB BLOOD ORDERABLES Fin al Result Performing Organization Address [facility] Co de Phone Number [address] [address] * Ceruloplasmin (01/04/2024 9:22 AM EST) CERULOPLASMIN 31 20 - 60 mg/dL [facility] Blood 01/04/2024 9:22 AM EST 01/04/2024 9:53 AM EST Missy WALLACE LAB BLOOD ORDERABLES Fin al Result Performing Organization Address [facility] Co de Phone Number [address] [address] * (ABNORMAL) Antinuclear antibody (JERMAIN) (01/04/2024 9:22 AM EST) JERMAIN SCREEN ON HEP 2 Positive(A ) Negative [facility] Comment:An JERMAIN Titer has bee n reflexed. The results will follow. Blood 01/04/2024 9:22 AM EST 01/04/2024 9:53 AM EST Missy WALLACE LAB BLOOD ORDERABLES Fin al Result Performing Organization Address City/[facility] Co de Phone Number MENDOZA BISMARK [address] [address] * Anti-Mitochondrial Antibody (AMA) (01/04/2024 9:22 AM EST) MITOCHONDRIAL AB NEGATIVE AT 1:20 [facility] Comment: Performing Physician, Max Jimenez M.D., [id number] Normal: Negative at 1:20 Blood 01/04/2024 9:22 AM EST 01/04/2024 9:53 AM EST Missy WALLACE LAB BLOOD ORDERABLES Fin al Result [address] [address] * Amylase (01/04/2024 9:22 AM EST) Pathologist [facility] AMYLASE 86 28 - 100 U/L [facility] Blood 01/04/2024 9:22 AM EST 01/04/2024 9:53 AM EST Missy WALLACE LAB BLOOD ORDERABLES Fin al Result Performing Organization Address City/[facility]/ZIP Co de Phone Number [address] [address] * AFP (non-maternal specimens) (01/04/2024 9:22 AM EST) Pathologist [facility] AFP (NON-MATERNAL) 4.7 <7.9 ng/mL [facility] Comment: Test Methodology Filipe [id number] Patient results determined by assays using different manufacturers or methods may not be comparable. Blood 01/04/2024 9:22 AM EST 01/04/2024 9:53 AM EST Missy WALLACE LAB BLOOD ORDERABLES Fin al Result Performing Organization Address City/[facility]/ZIP Co de Phone Number [address] [address] * Coiaz-6-rshnbslcixa phenotyping (01/04/2024 9:22 AM EST) ALPHA 1 ANTITRYPSIN 173 100 - 190 mg/dL [facility] LAB MED/[facility] [address] Comment: (NOTE) ADDITIONAL INFORMATION Method: Nephelometry A1A PHENOTYPE MM bands [facility] [address] Comment: (NOTE) A single M isoform is detected. In the context of a normal rfjnu-7-aszuxciuxif concentration, this is consistent with an MM phenotype. ADDITIONAL INFORMATION Method: Isoelectric Focusing, This assay identifies the phenotype of the circulating zchge-3-ghqvktflyuu (A1A) protein. If the patient is on replacement therapy or has been recently transfused, the phenotype will detect patient and replacement or transfused plasma A1A protein. This test also cannot detect a null allele which could be responsible for an A1A deficiency. Blood 01/04/2024 9:22 AM EST 01/04/2024 9:53 AM EST Missy WALLACE LAB BLOOD ORDERABLES Fin al Result [facility] LAB MED/PATH [address] [place] [address] documented in this encounter Visit Diagnoses Diagnosis Need for hepatitis C screening test- Primary Special screening examination for other specified viral diseases Hepatic cirrhosis, unspecified hepatic cirrhosis type, unspecified whether ascites present Esophageal varices in alcoholic cirrhosis Esophageal varices without mention of bleeding documented in this encounter Care Teams Training And Development Manager Relationship Specialty Start Date End Date [facility] [address] [place] [address] PCP - General 10/07/23 Pcp, Unknown 10/07/23 documented as of this encounter Additional Source Comments The information contained in this document represents components of the legal health record. It is not the complete legal health record.[facility]
--- OUTSIDE RECORDS SUMMARY | 2025-08-14 16:39 | XMS_ITS | Clinical Summary ---
Author Organization [facility] Address [address] [place] [address] Phone Care Team Providers Care Tripe Finisher Name Role Phone [facility], Facility Primary Care Provider Pcp, Unknown [...] magnesia). Active monobasic and dibasic sodium phosphates ([address] ENEMA) 19-7 gram/[address] 1 [...] Patient presented with altered mental status from [facility] where he appeared more lethargic than [...] EST) SODIUM 137 133 - 146 mmol/L [facility] POTASSIUM 4.5 3.3 - 5.1 mmol/L [facility] CHLORIDE 105 96 - 108 mmol/L [facility] CO2 22 21 - 35 mmol/L [facility] BUN 14 6 - 19 mg/dL [facility] CREATININE 0.80 0.5 - 1.5 mg/dL [facility] GLUCOSE 104(H) 70 - 99 mg/dL [facility] ALBUMIN 4.1 3.9 - 4.8 g/dL [facility] TOTAL PROTEIN 8.1(H) 6.5 - 8.0 g/dL [facility] CALCIUM 10.4(H) 8.4 - 10.3 mg/dL [facility] ALKALINE PHOSPHATASE 118(H) 39 - 117 U/L [facility] TOTAL BILIRUBIN 0.6 0.0 - 1.2 mg/dL [facility] AST 25 0 - 37 U/L [facility] ALT 7 0 - 40 U/L [facility] GLOBULIN 4.0 1 - 4.8 g/dL [facility] EGFR 105 >59 mL/min/1.7 3m2 [facility] Comment:Estimated glomerular filtration rate calculated using the CKD-EPI refit equation. ANION GAP 15 10 - 20 mmol/L [facility] Blood 01/04/2024 9:22 AM EST 01/04/2024 9:53 AM EST Missy WALLACE LAB BLOOD ORDERABLES Fin al Result Performing Organization Address City/[facility]/ZIP Co de Phone Number [address] [address] * Hepatitis C antibody, qualitative (01/04/2024 9:22 AM EST) HCV NON-REACTIV E NON-REACTI VE [facility] Blood 01/04/2024 9:22 AM EST 01/04/2024 9:53 AM EST Missy WALLACE LAB BLOOD ORDERABLES Fin al Result Performing Organization Address [facility] Co de Phone Number [address] [address] from Last 3 Months or Most Recently Relevant to Health Maintenance Insurance [facility] [employer] [employer] C3 A[employer]3 A[employer] C3 [employer] [id number] [facility] [employer] [employer] [facility] [employer] [employer] Advance Directives For more information, please contact: [phone] (9AM - 5PM [facility], Monday-Monday) Documents on File Type Date Recorded Patient Facilities Planner Expl anation Healthcare Proxy 10/09/2023 10:49 AM [...] Agents on File Name Relationship Healthcare Agent Gala danyell Lopez Guillermo Lobato .Primary Health Care Agent (Proxy form on file) Care Teams Tripe Finisher Relationship Specialty Start Date End Date [facility], Marya, [address] [place] [address] PCP - General 10/07/23 Pcp, Unknown 10/07/23 Additional Source Comments The information contained in this document represents components of the legal health record. It is not the complete legal health record.[facility]
--- NOTE | 2025-08-14 16:45 | ED_ITS ---
HPI - General Adult General Chief complaint: ETOH/Substance Use Stated complaint: LEG PAIN,ETOH USE PER EMS Time Seen by Provider: 08/14/25 16:03 Source: patient, RN notes reviewed and old records reviewed Mode of arrival: EMS Limitations: language barrier History of Present Illness ED Provider: Chapis HPI narrative: 55-year-old male with past medical history significant for alcohol abuse, congestive heart failure, chronic left leg pain she presents for evaluation of left leg pain. The patient is homeless and was found in the community by EMS and brought to the emergency department. The patient admits to drinking alcohol heavily. He reports that he feels well and does not feel sick. He does not feel short of breath pain Denies any recent falls. He reports that he is hungry Related Data Previous Rx's ?Medication ?Instructions ?Recorded furosemide 40 mg tablet (Lasix) 40 mg PO DAILY #30 tab s 07/16/25 levofloxacin 500 mg tablet 500 mg PO DAILY #2 tabs 02/04 Allergies Allergy/AdvReac Type Severity Reaction Status Date / Time No Known Allergies (No Known Allergy Verified 08/14/25 15:17 Allergies*) Review of Systems 2 Constitutional: Constitutional: Denies body ache(s), Denies chills, Denies fever(s) and Denies headache(s) ENT: Denies headache(s) Cardiovascular: Cardiovascular: Denies dyspnea and Denies dyspnea on exertion Respiratory: Respiratory: Denies dyspnea and Denies dyspnea on exertion Gastrointestinal: Gastrointestinal: Denies abdominal pain Musculoskeletal: Musculoskeletal: Reports arthralgias, Reports joint swelling and Reports limited range of motion Neurologic: Denies headache(s) [facility] Past Medical History Medical History Alcohol use disorder CHF (congestive heart failure) Alcohol abuse Acute hypoxemic respiratory failure Anemia Pneumonia Alcohol withdrawal syndrome Pancytopenia Alcohol abuse Thrombocytopenia Esophageal varices Acute on chronic anemia Alcoholic liver disease Aspiration pneumonia Thrombocytopenia Malnutrition CHF (congestive heart failure) Anemia Hypomagnesemia Cirrhosis Thrombocytopenia Acute on chronic anemia CHF (congestive heart failure) Anemia Alcohol abuse Surgical History No history of previous surgery Social History Social History Household Members: None Household Members Other:: homeless Housing: Other Housing Other:: homeless Do you presently have visiting nurse or other home services: No Alcohol intake: current Alcohol intake frequency: 3 or more drinks per day Alcohol type: hard liquor Comment: pt refuse to have staff remain in [place] Patient Tobacco Use Status: Former Tobacco user Tobacco use type: Cigarette Smoked in Last 30 Days: Yes Second Hand Smoke Exposure: No Use of substances other than those prescribed or required for medical reasons: No Advance Directives: Yes Advance Directives on File: Yes Advance Directives Date on File: 07/13/23 service: No Physical Exam ED Vital Signs: Vital Signs - 24 hr 08/14/25 14:56 08/14/25 16:25 08/14/25 18:24 Temperature 98 F 97.4 F 98.3 F Pulse Rate 76 78 75 Respiratory Rate 16 16 16 Blood Pressure 124/76 96/55 L 90/50 L Pulse Oximetry 95 90 L 91 L Oxygen Delivery Method Room Air Nasal Cannula Nasal Cannula Oxygen Flow Rate 3 3 08/14/25 20:00 08/15/25 00:14 08/15/25 05:29 Temperature 98.3 F 98.6 F 98.3 F Pulse Rate 74 75 75 Respiratory Rate 16 16 14 Blood Pressure 94/55 L 99/54 L 126/62 Pulse Oximetry 93 93 92 Oxygen Delivery Method Nasal Cannula Nasal Cannula Nasal Cannula Oxygen Flow Rate 2 2 2 BMI result Body Mass Index 25.2 Const Other: Somewhat disheveled appearing General: no acute distress, alert and intoxicated appearing; No awake (The patient is sleepy but arousable) Nutritional Appearance: well nourished Orientation/consciousness: patient oriented x3 HENMT Head: Yes normocephalic and Yes atraumatic Eyes Eyelids: Yes eyelids normal Conjunctivae: conjunctivae normal Sclerae: sclerae normal Corneas: corneas normal Pupils: Equal, round and reactive pupils present EOM: EOMs intact bilaterally Neck Neck: Yes full ROM Resp Effort & Inspection: normal respiratory effort, able to speak in complete sentences and not labored GI Inspection: No distended Palpation (GI): Soft to palpation, not firm, nontender, no guarding and not rigid Skin General skin exam: elasticity normal Neuro General: patient oriented x3 Cranial nerves: Yes Equal, round and reactive pupils present and Yes Bilaterally intact EOM present Cognition (Neuro): normal cognition Extrem Other: Moving all extremities well without any obvious deformities Course Reevaluation(s) Reevaluation #1: 6:09 AM 08/15/2025 (Ryan WALLACE): Patient was signed out to this provider at shift change. In summary the patient is a 55-year-old male with a history of alcohol dependency and CHF presenting to the ED for evaluation of alcohol intoxication. The patient's alcohol level was 441, remainder of laboratory evaluation was unremarkable. Chest x-ray showed cardiomegaly with pulmonary vascular congestion, EKG was unremarkable. Of note patient has a history of hypoxia while in the ED for alcohol intoxication, patient was placed on FiO2 overnight while sleeping due to hypoxia. Patient was signed out pending re- evaluation of sobriety and oxygenation, per provider's sign-out patient can be discharged if he is able to maintain oxygen saturation without FiO2, however we will require Lasix administration and admission for suspected CHF exacerbation if patient desaturates on room air. At this time the patient wakes easily however is immediately hypoxic into the mid 80s when awake and taken off FiO2. We will provide 40 mg IV Lasix, and admit for CHF exacerbation with increased oxygen demand, secondary to medication noncompliance. Medical Decision Making Medical Decision Making MDM Narrative: 55-year-old male past medical history as above presenting for evaluation after being found intoxicated in the community. The patient admits to alcohol consumption. He is well known to this emergency department for similar visits. He reports that he feels well, does not feel sick. He does have chronic left leg pain due to a chronic ankle fracture. Denies any recent falls or trauma. His oxygen saturation was noted to be 88% on room air, he is on 3 L and maintaining at 90%. The patient was quite sleepy a on arrival which could be related to ethanol consumption. Plan for basic labs with a tox screen, chest x- ray and close observation Differential Diagnosis Differential Diagnoses: The differential diagnosis associated with the presentation includes Alcohol abuse CHF Malingering Chronic ankle pain Failure to thrive Lab Data 08/14/25 17:12 08/14/25 17:12 Labs: Lab Results 08/14/25 Range/Units 17:12 WBC 3.0 L (4.8-10.8) X10*3/uL RBC 3.36 L (4.60-5.80) X10*6/uL Hgb 10.3 L (14.0-18.0) g/dl Hct 31.7 L (42.0-52.0) % MCV 94.3 (80.0-98.0) fL MCH 30.7 (27.0-33.0) pg MCHC 32.5 (31.0-36.0) g/dl RDW 18.3 H (11.0-16.0) % Plt Count 26 L (160-400) X10*3/uL MPV Not Reportable Immature Gran % (Auto) 0.3 (0.0-0.4) % Neut % (Auto) 64.9 (45-73) % Lymph % (Auto) 21.9 (20-40) % [place] % (Auto) 10.3 (2-11) % Eos % (Auto) 1.3 (0-4) % Baso % (Auto) 1.3 (0-2) % Lymph # (Auto) 0.7 L (1.2-4.9) X10*3/uL [place] # (Auto) 0.3 (0.1-1.2) X10*3/uL Eos # (Auto) 0.0 (0.0-0.4) X10*3/uL Baso # (Auto) 0.0 (0.0-0.2) X10*3/uL Abs Immat Gran (auto) 0.01 (0.00-0.03) X10*3/uL Absolute Neuts (auto) 2.0 (2.0-8.3) x10*3/uL Absolute Nucleated RBC 0.000 (0.0-0.012) X10*3/uL Nucleated RBC % (auto) 0.0 (0.0-0.2) /100WBC Smear Tech's Comments VERIFIED Sodium 148 H (135-145) mmol/L Potassium 3.4 (3.3-5.1) mmol/L Chloride 116 H (96-108) mmol/L Carbon Dioxide 22 (22-29) mmol/L Anion Gap 13 (12-20) BUN 11 (9-16) mg/dL Creatinine 0.99 (0.5-1.4) mg/dL Estim Creat Clear Calc 58.9 Estimated GFR > 60 Random Glucose 101 (60-115) mg/dL Calcium 7.7 L (8.4-10.2) mg/dL Total Bilirubin 0.7 (0.0-1.0) mg/dL AST 93 H (5-37) U/L ALT 14 (0-40) U/L Alkaline Phosphatase 173 H (39-117) U/L NT-Pro-B Natriuret Pep 108.4 (<300) pg/mL Total Protein 7.5 (6.5-8.0) g/dL Albumin 3.2 L (3.5-5.0) g/dL Lipase 21 (8-78) U/L Ethyl Alcohol 441 H* mg/dL Discharge Plan Discharge Clinical Impression: Alcoholic intoxication, Hypoxemia, CHF exacerbation Patient Disposition: Admitted As Inpatient Print Language: [place]
[2025-08-14 17:42] LABS: NT Pro B Type Natriuretic Pept 108.4 pg/mL (<300)
[2025-08-14 17:44] LABS: Alanine Aminotransferase 14 U/L (0-40); Albumin Level 3.2 g/dL (3.5-5.0); Alkaline Phosphatase 173 U/L (39-117); Anion Gap 13 (12-20); Aspartate Amino Transferase 93 U/L (5-37); Blood Urea Nitrogen 11 mg/dL (9-16); Calcium 7.7 mg/dL (8.4-10.2); Carbon Dioxide 22 mmol/L (22-29); Chloride 116 mmol/L (96-108); Creatinine Clr Calc Pharmacy 58.9; Estimated Glomerular Filt Rate > 60; Lipase 21 U/L (8-78); Potassium 3.4 mmol/L (3.3-5.1); Sodium 148 mmol/L (135-145); Total Protein 7.5 g/dL (6.5-8.0)
[2025-08-14 17:45] LABS: Hemoglobin 10.3 g/dl (14.0-18.0); Imm Gran Abs Auto 0.01 X10*3/uL (0.00-0.03); Imm Gran Pct Auto 0.3 % (0.0-0.4); MANUAL DIFF FLAG SCAN; NRBC Abs Auto 0.000 X10*3/uL (0.0-0.012); NRBC Pct Auto 0.0 /100WBC (0.0-0.2); SCAN SMEAR FLAG 1
[2025-08-14 17:47] LABS: Hematocrit 31.7 % (42.0-52.0); Lymphocytes Absolute Auto 0.7 X10*3/uL (1.2-4.9); Mean Corpuscular HGB Conc 32.5 g/dl (31.0-36.0); Mean Corpuscular Hemoglobin 30.7 pg (27.0-33.0); Mean Corpuscular Volume 94.3 fL (80.0-98.0); PLT CLUMP 1; Red Blood Count 3.36 X10*6/uL (4.60-5.80)
[2025-08-14 18:17] LABS: PLT ABN DIST 1; White Blood Count 3.0 X10*3/uL (4.8-10.8)
[2025-08-14 18:18] LABS: Platelet Count 26 X10*3/uL (160-400)
[2025-08-14 18:24] VITALS: BP 90/50; PULSE 75; RESP 16; TEMP 36.8; O2SAT 91
[2025-08-14 20:00] VITALS: BP 94/55; PULSE 74; RESP 16; TEMP 36.8; O2SAT 93
[2025-08-15] VITALS (10 sets, daily range): BP systolic 99–150; BP diastolic 54–72; PULSE 70–80; RESP 14–21; TEMP 36.6–37.4; O2SAT 86–96; BMI 20.8; BMI 19.1
--- NOTE | 2025-08-15 03:36 | PC.NURSE ---
assumed care of pt at 2300, pt resting quietly at this time ciwa 0
--- NOTE | 2025-08-15 04:48 | PC.NURSE ---
MEAGAN 6. Provider notified.
[2025-08-15] MEDS: Furosemide 40 MG/4 ML VIAL IVPUSH (07:55)
[2025-08-15] MEDS: PHENobarbitaL sodium 130 MG/ML IM ONCE 200 MG IM (07:57)
--- NOTE | 2025-08-15 08:11 | P.HPHOSP_ITS ---
History of Present Illness Date of Service: 08/15/25 Attending physician on admission: Mariel Rice Chief Complaint: etoh intoxication This is a 55-year-old homeless male who history of alcohol abuse, liver cirrhosis who was brought in by the police after being found intoxicated. His alcohol level was 441 on arrival, labs appeared to be near baseline. His oxygen saturation was 88% on room air, he was placed on 3 L of supplemental oxygen in order to maintain oxygen saturation above 90%. He was observed overnight and when he was more awake and alert it was attempted to wean his oxygen however he remained hypoxic with an oxygen saturation of 86% on room air. Patient is a vague historian, reporting right ankle pain (reportedly have chronic left leg pain) does not think he fell. Chest x-ray showed pulmonary vascular congestion although pro BNP was low at 100 he received a dose of IV Lasix and the decision was made to admit him to the hospital for further management of hypoxic respiratory failure. Review of Systems 2 Review of Systems: Yes all other systems are reviewed and are negative Constitutional: Constitutional: Denies chills and Denies fever(s) Cardiovascular: Cardiovascular: Denies chest pain Gastrointestinal: Gastrointestinal: Denies abdominal pain, Denies nausea and Denies vomiting PMFSH Medical History Alcohol use disorder CHF (congestive heart failure) Alcohol abuse Acute hypoxemic respiratory failure Anemia Pneumonia Alcohol withdrawal syndrome Pancytopenia Alcohol abuse Thrombocytopenia Esophageal varices Acute on chronic anemia Alcoholic liver disease Aspiration pneumonia Thrombocytopenia Malnutrition CHF (congestive heart failure) Anemia Hypomagnesemia Cirrhosis Thrombocytopenia Acute on chronic anemia CHF (congestive heart failure) Anemia Alcohol abuse Surgical History No history of previous surgery Social History Household Members: None Household Members Other:: homeless Housing: Other Housing Other:: homeless Do you presently have visiting nurse or other home services: No Alcohol intake: current Alcohol intake frequency: 3 or more drinks per day Alcohol type: hard liquor Comment: pt refuse to have staff remain in [place] Patient Tobacco Use Status: Former Tobacco user Tobacco use type: Cigarette Smoked in Last 30 Days: Yes Second Hand Smoke Exposure: No Use of substances other than those prescribed or required for medical reasons: No Advance Directives: Yes Advance Directives on File: Yes Advance Directives Date on File: 07/13/23 service: No Meds Allergies Allergy/AdvReac Type Severity Reaction Status Date / Time No Known Allergies (No Known Allergy Verified 08/14/25 15:17 Allergies*) Active Medications: Current Medications Acetaminophen (Acetaminophen 325 Mg Tablet) 650 mg PO Q6H PRN PRN Reason: Pain, Mild 1-3,fever,headache Calcium Carbonate (Calcium Carbonate 750 Mg Tab.Chew) 750 mg PO Q4H PRN PRN Reason: Heartburn Magnesium Hydroxide (Milk Of Magnesia 30 Ml Oral.Susp) 30 ml PO DAILY PRN PRN Reason: Constipation Melatonin (Melatonin 3 Mg Tablet) 6 mg PO BEDTIME PRN PRN Reason: Insomnia Pharmacy Consult (Consult Rx Etoh Phenob Im/Po) 1 each MISCELLANE ONCE PRN; Protocol PRN Reason: Consult order Phenobarbital (Phenobarbital 15 Mg Tablet) 45 mg PO BID JOSE MANUEL; Protocol Stop: 08/17/25 09:01 Phenobarbital (Phenobarbital 15 Mg Tablet) 15 mg PO BID JOSE MANUEL; Protocol Stop: 08/19/25 09:01 Phenobarbital (Phenobarbital 15 Mg Tablet) 15 mg PO DAILY JOSE MANUEL; Protocol Stop: 08/21/25 09:01 Phenobarbital Sodium (Phenobarbital Sodium 130 Mg/Ml Vial Im Q3hx2) 150 mg IM Q3H JOSE MANUEL; Protocol Stop: 08/15/25 13:01 Sodium Chloride (0.9 % Sodium Chloride Flush 3 Ml Syringe) 3 ml IVFLUSH QSHIFT [facility] Home Medications ?Medication ?Instructions ?Recorded ?Confirmed ?Last Taken ?Type No Known Home Meds 08/15/25 08/15/25 Un known History Physical Exam 2 Vital Signs and Narrative: Vital Signs: Last Vital Signs Temp 98.3 F 08/15/25 05:29 Pulse 79 08/15/25 07:57 Resp 16 08/15/25 07:57 BP 131/61 08/15/25 07:30 Pulse Ox 86 L 08/15/25 07:57 O2 Del Method Room Air 08/15/25 07:57 O2 Flow Rate 2 08/15/25 07:30 BMI result Body Mass Index 25.2 Const: General: comfortable, awake and Physically active Nutritional Appearance: average body habitus Orientation/consciousness: patient oriented x3 Resp: Other: rhonchi no rales Effort & Inspection: normal respiratory effort, able to speak in complete sentences and no use of accessory muscles Cardio: Rate: regular rate GI: Inspection: No distended Palpation (GI): Soft to palpation Neuro: General: patient oriented x3, moves all extremities and CN's II-XI intact bilaterally Extrem: Other: ankle edema bilateral Results Labs 08/15/25 08:22 08/15/25 08:22 Labs: Laboratory Results - last 24 hr 08/14/25 17:12 MCV 94.3 MCH 30.7 MCHC 32.5 RDW 18.3 H Plt Count 26 L MPV Not Reportable Immature Gran % (Auto) 0.3 Neut % (Auto) 64.9 Lymph % (Auto) 21.9 [place] % (Auto) 10.3 Eos % (Auto) 1.3 Baso % (Auto) 1.3 Lymph # (Auto) 0.7 L [place] # (Auto) 0.3 Eos # (Auto) 0.0 Baso # (Auto) 0.0 Abs Immat Gran (auto) 0.01 Absolute Neuts (auto) 2.0 Absolute Nucleated RBC 0.000 Nucleated RBC % (auto) 0.0 Smear Tech's Comments VERIFIED Anion Gap 13 Estim Creat Clear Calc 58.9 Estimated GFR > 60 Random Glucose 101 Calcium 7.7 L Total Bilirubin 0.7 AST 93 H ALT 14 Alkaline Phosphatase 173 H NT-Pro-B Natriuret Pep 108.4 Total Protein 7.5 Albumin 3.2 L Lipase 21 Ethyl Alcohol 441 H* Imaging Radiologist's Impressions: Impressions Chest X-Ray 08/14/25 16:36 IMPRESSION: Cardiomegaly and suspected pulmonary vascular congestion. Electronically signed by: Elias Smith MD 08/14/2025 05:00 PM EDT RP Assessment and Plan (1) Hypoxemia: Status: Acute (2) Alcoholic intoxication: Qualifiers: Complication of substance-induced condition: uncomplicated Qualified Code(s): F10.920 - Alcohol use, unspecified with intoxication, uncomplicated Status: Acute Plan This is a 55 year old male with history of etoh, liver cirrhosis with esophageal varices, HFpEF, gerd who is brought into the emergency department by the PD after being found intoxicated Acute respiratory failure with hypoxia Oxygen saturation as low as 86% on room air, failed weaning trial in ED x2 Although chest x-ray reading vascular congestion, pro-BNP low, does not appear clinically fluid overloaded Received a dose of IV Lasix in ED Due to alcohol intoxication, probable aspiration, will treat empirically with IV zosyn continue supplemental oxygen to keep O2 sat >90% if no improvement with current management consider CT chest Alcohol use disorder with acute alcohol withdrawal Continue phenobarbital protocol Supplementation with thiamine, folic acid follow lytes Hypomagnesemia replace IV and start po supplementation was previously discharged with po mag but not compliant follow up level in am Liver cirrhosis with esophageal varices and pancytopenia, hypersplenism Labs at baseline Noncompliant with medication Does not follow with GI Hypernatremia, mild due to volume depletion follow BMP HFpEF not on diuretics at baseline, noncompliant with all medication Right foot pain Denies fall Check x-ray pseudohypocalcemia when corrected for hypoalbuminemia, calcium 8.3 DVT prophylaxis-mechanical devices due to severe thrombocytopenia Patient will likely require 2 midnight stay in the hospital for management of acute hypoxic respiratory failure requiring supplemental oxygen and further workup to determine the etiology and treatment as well as alcohol withdrawal requiring phenobarbital and close monitoring Quality Stroke Does the patient have a stroke diagnosis?: No VTE Prior VTE?: No VTE Risk Level:: Medical - moderate - high VTE Device Contraindication: N/A - Device Ordered VTE Drug Contraindication: Treatment Not Indicated
--- NOTE | 2025-08-15 08:24 | PHA.MEDREC ---
Addendum entered by Doris Rose RPh 08/15/25 08:45: MED REC REVIEWED BY [facility] Original Note: Pharmacy Consult ? Medication Reconciliation Pharmacy has completed the medication reconciliation. Spoke with pt and he confirmed he takes nothing at this time for medication.
[2025-08-15 08:41] LABS: Hematocrit 34.0 % (42.0-52.0); Hemoglobin 11.0 g/dl (14.0-18.0); Mean Corpuscular HGB Conc 32.4 g/dl (31.0-36.0); Mean Corpuscular Hemoglobin 30.6 pg (27.0-33.0); Mean Corpuscular Volume 94.7 fL (80.0-98.0); NRBC Abs Auto 0.000 X10*3/uL (0.0-0.012); NRBC Pct Auto 0.0 /100WBC (0.0-0.2); Red Blood Count 3.59 X10*6/uL (4.60-5.80); White Blood Count 2.7 X10*3/uL (4.8-10.8)
[2025-08-15 08:43] LABS: Platelet Count 26 X10*3/uL (160-400)
[2025-08-15 08:44] LABS: Anion Gap 12 (12-20); Blood Urea Nitrogen 10 mg/dL (9-16); Calcium 7.7 mg/dL (8.4-10.2); Carbon Dioxide 23 mmol/L (22-29); Chloride 115 mmol/L (96-108); Creatinine Clr Calc Pharmacy 95.6; Estimated Glomerular Filt Rate > 60; Potassium 3.4 mmol/L (3.3-5.1); Sodium 147 mmol/L (135-145)
--- NOTE | 2025-08-15 08:45 | PC.NURSE ---
pt moved to room 21 after admission NSR on tele trial off 2L O2 - dipped to 86% on RA. Hospitalist notified and placed back on 2L O2. breathing even, non labored. Lasix given, 800ml output 45 minutes later, clear pale yellow Phenobarb protocol started. CIWA 0
[2025-08-15 08:49] LABS: Magnesium 1.4 mg/dL (1.6-2.6)
[2025-08-15 09:28] LABS: Appearance Urine Clear; Glucose Urine UA Negative (Negative); PH 6.5 (5.0-9.0); Specific Gravity - Urine <= 1.005 (1.005-1.025)
[2025-08-15 09:35] LABS: Cannabinoid Screen Urine Not Detected (Not Detect)
[2025-08-15] MEDS: PHENobarbitaL sodium 130 MG/ML VIAL IM Q3Hx2 150 MG IM ×2 (10:45→13:57)
[2025-08-15] MEDS: 0.9 % Sodium Chloride Flush 3 ML SYRINGE IVFLUSH ×2 (16:27→22:22)
--- NOTE | 2025-08-15 19:45 | PC.NURSE ---
pt temp elevated to 99.3, pt medicated with tylenol for mild fever.
[2025-08-16] VITALS (7 sets, daily range): BP systolic 103–137; BP diastolic 54–67; PULSE 65–93; RESP 17–20; TEMP 36.3–36.7; O2SAT 91–95
[2025-08-16 06:18] LABS: Imm Gran Abs Auto 0.01 X10*3/uL (0.00-0.03); NRBC Abs Auto 0.000 X10*3/uL (0.0-0.012); NRBC Pct Auto 0.0 /100WBC (0.0-0.2); SCAN SMEAR FLAG 1
[2025-08-16 06:20] LABS: Hematocrit 31.4 % (42.0-52.0); Hemoglobin 10.3 g/dl (14.0-18.0); Imm Gran Pct Auto 0.4 % (0.0-0.4); Lymphocytes Absolute Auto 0.6 X10*3/uL (1.2-4.9); MANUAL DIFF FLAG SCAN; Mean Corpuscular HGB Conc 32.8 g/dl (31.0-36.0); Mean Corpuscular Hemoglobin 30.6 pg (27.0-33.0); Mean Corpuscular Volume 93.2 fL (80.0-98.0); PLT CLUMP 1; Red Blood Count 3.37 X10*6/uL (4.60-5.80)
[2025-08-16 06:21] LABS: PLT ABN DIST 1; Platelet Count 24 X10*3/uL (160-400); White Blood Count 2.7 X10*3/uL (4.8-10.8)
[2025-08-16 06:27] LABS: Anion Gap 10 (12-20); Blood Urea Nitrogen 11 mg/dL (9-16); Calcium 7.8 mg/dL (8.4-10.2); Carbon Dioxide 25 mmol/L (22-29); Chloride 105 mmol/L (96-108); Creatinine Clr Calc Pharmacy 102.7; Estimated Glomerular Filt Rate > 60; Magnesium 1.2 mg/dL (1.6-2.6); Potassium 3.2 mmol/L (3.3-5.1); Sodium 137 mmol/L (135-145)
[2025-08-16] MEDS: Magnesium Sulfate/H2O 2 GM/50 ML PIGGYBACK IV (06:54)
[2025-08-16] MEDS: 0.9 % Sodium Chloride Flush 3 ML SYRINGE IVFLUSH ×3 (07:11→20:30)
--- NOTE | 2025-08-16 07:18 | HO.PM.IMPN ---
Subjective Subjective Date of Service: 08/16/25 Interval History: Patient appears to have worry she has appetite Was complaining about SCD boots Has poor insight about his medical conditions Review of Systems Review of Systems: Yes Unobtainable due to mental condition, Unobtainable due to mental status and Other (Poor insight) Physical Exam Exam: Exam: General: AO X 3, no acute distress, however bilateral hand tremors noted, mild slurring of speech which appears to be his baseline or from withdrawal Resp: CTA bilateral, on 2 L nc CVS: S1,S2,RRR GI: +BS, NT, no distention Skin: No rash Neuro: motor grossly intact Psych: Poor insight Vital Signs: Vital Signs: Last Vital Signs Temp 97.6 F 08/16/25 03:39 Pulse 65 08/16/25 03:39 Resp 18 08/16/25 03:39 BP 117/56 L 08/16/25 03:39 Pulse Ox 93 08/16/25 03:39 O2 Del Method Nasal Cannula 08/16/25 03:39 O2 Flow Rate 2 08/16/25 03:39 BMI result Body Mass Index 19.1 Objective Data Active Medications Acetaminophen (Acetaminophen 325 Mg Tablet) 650 mg PO Q6H PRN PRN Reason: Pain, Mild 1-3,fever,headache Last Admin: 08/16/25 07:11 Dose: 650 mg Documented By: LUCRECIA Calcium Carbonate (Calcium Carbonate 750 Mg Tab.Chew) 750 mg PO Q4H PRN PRN Reason: Heartburn Folic Acid (Folic Acid 1 Mg Tablet) 1 mg PO DAILY [facility] Last Admin: 08/15/25 09:17 Dose: 1 mg Documented By: J LUIS Piperacillin Sod/Tazobactam (Sod 4.5 gm/ Sodium Chloride) 100 mls @ 200 mls/hr IV Q6H [facility] Last Infusion: 08/16/25 07:14 Dose: Infused Documented By: LUCRECIA Magnesium Sulfate (Magnesium Sulfate/H2o) 2 gm in 50 mls @ 25 mls/hr IV ONCE STA Stop: 08/16/25 08:27 Last Admin: 08/16/25 06:54 Dose: 25 mls/hr Documented By: PARAMJIT Magnesium Hydroxide (Milk Of Magnesia 30 Ml Oral.Susp) 30 ml PO DAILY PRN PRN Reason: Constipation Magnesium Oxide (Magnesium Oxide 400 Mg Tablet) 400 mg PO DAILY [facility] Last Admin: 08/15/25 10:37 Dose: 400 mg Documented By: J LUIS Melatonin (Melatonin 3 Mg Tablet) 6 mg PO BEDTIME PRN PRN Reason: Insomnia Pharmacy Consult (Consult Rx Etoh Phenob Im/Po) 1 each MISCELLANE ONCE PRN; Protocol PRN Reason: Consult order Phenobarbital (Phenobarbital 15 Mg Tablet) 45 mg PO BID [facility]; Protocol Stop: 08/17/25 09:01 Last Admin: 08/15/25 22:21 Dose: 45 mg Documented By: PARAMJIT Phenobarbital (Phenobarbital 15 Mg Tablet) 15 mg PO BID [facility]; Protocol Stop: 08/19/25 09:01 Phenobarbital (Phenobarbital 15 Mg Tablet) 15 mg PO DAILY [facility]; Protocol Stop: 08/21/25 09:01 Sodium Chloride (0.9 % Sodium Chloride Flush 3 Ml Syringe) [facility] Last Admin: 08/16/25 07:11 Dose: 3 ml Documented By: LUCRECIA Thiamine HCl (Thiamine Hcl 100 Mg Tablet) 100 mg PO DAILY [facility] Last Admin: 08/15/25 09:17 Dose: 100 mg Documented By: J LUIS Labs 08/16/25 05:52 08/16/25 05:52 Labs: Laboratory Results - last 24 hr 08/15/25 08/15/25 08/16/25 08:22 09:20 05:52 MCV 94.7 93.2 MCH 30.6 30.6 MCHC 32.4 32.8 RDW 18.1 H 17.6 H Plt Count 26 L 24 L MPV Not Reportable Not Reportable Immature Gran % (Auto) 0.4 Neut % (Auto) 65.1 Lymph % (Auto) 22.0 Nobles % (Auto) 8.8 Eos % (Auto) 2.6 Baso % (Auto) 1.1 Lymph # (Auto) 0.6 L [place] # (Auto) 0.2 Eos # (Auto) 0.1 Baso # (Auto) 0.0 Abs Immat Gran (auto) 0.01 Absolute Neuts (auto) 1.8 L Absolute Nucleated RBC 0.000 0.000 Nucleated RBC % (auto) 0.0 0.0 Smear Tech's Comments VERIFIED Anion Gap 12 10 L Estim Creat Clear Calc 95.6 102.7 Estimated GFR > 60 > 60 Random Glucose 85 86 Calcium 7.7 L 7.8 L Magnesium 1.4 L* 1.2 L* Urine Color Yellow Urine Appearance Clear Urine pH 6.5 Ur Specific [place] <= 1.005 Urine Protein Negative Urine Glucose (UA) Negative Urine Ketones Negative Urine Blood Negative Urine Nitrite Negative Ur Leukocyte Esterase Negative Urine RBC 0-2 Urine WBC 0-5 Ur Squamous Epith Cells 0-2 Urine Bacteria None Seen Hyaline Casts 0-2 Urine Opiates Screen Not Detected Ur Buprenorphine Scrn Not Detected Ur Oxycodone Screen Not Detected Urine Methadone Screen Not Detected Urine Fentanyl Screen Not Detected Ur Barbiturates Screen POSITIVE H Ur Phencyclidine Scrn Not Detected Ur Amphetamines Screen Not Detected U Benzodiazepines Scrn Not Detected Urine Cocaine Screen Not Detected U Marijuana (THC) Screen Not Detected Assessment and Plan (1) Pneumonia: Status: Resolved (2) Hypoxia: Status: Resolved Plan Patient is a 55-year-old male with multiple recurrent admissions with similar complaints of ETOH intoxication, liver cirrhosis, esophageal varices, HFpEF, GERD, multiple aspiration pneumonia , homelessness, in the setting of a UD, presented after being found by the police being intoxicated and hypoxic and was brought into the ED. Patient has reportedly been admitted for similar concerns in the past and not amenable to multiple sectioned 5 in the past. Acute on chronic hypoxic respiratory failure secondary to intoxication, possible aspiration We will continue treating with p.o. 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 Code status: Full code DVT prophylaxis: SCD boots given thrombocytopenia-patient appears to be bothered by this Patient needs ongoing hospitalization given acute on chronic decompensation risk to risk of delirium tremens electrolyte abnormalities in the setting of alcoholic cardiomyopathy This note is constructed using voice recognition software. While every effort has been made to ensure accuracy, tax services professional errors may have been included. Quality Stroke Does the patient have a stroke diagnosis?: No VTE Prior VTE?: No VTE Risk Level:: Medical - moderate - high VTE Device Contraindication: N/A - Device Ordered VTE Drug Contraindication: Treatment Not Indicated
--- NOTE | 2025-08-16 11:39 | MHC.CM.PN ---
Pt. is homeless, he goes to [facility] for PCP care. DCP: back to streets. CM to follow for DC needs.
[2025-08-17] VITALS (8 sets, daily range): BP systolic 110–127; BP diastolic 56–64; PULSE 74–87; RESP 12–18; TEMP 36.2–37.1; O2SAT 82–95
--- NOTE | 2025-08-17 07:28 | HO.PM.IMPN ---
Subjective Subjective Date of Service: 08/17/25 Interval History: Patient continues to be hypoxic, and now he is on 4 L O2, unable to wean him from oxygen Likely we will need to go on home O2 We will order home O2 eval Continues to have withdrawal, we will continue phenobarb protocol Addiction Medicine consulted patient not interested in following through during this hospitalization, materials given by addiction Medicine Patient likely has undiagnosed EMMA Physical Exam Exam: Exam: General: AO X 3, no acute distress, however bilateral hand tremors noted, mild slurring of speech which appears to be his baseline or from withdrawal Resp: CTA bilateral, on 4 L nc (up from 2 L yesterday) CVS: S1,S2,RRR GI: +BS, NT, no distention Skin: No rash Neuro: motor grossly intact Psych: Poor insight Vital Signs: Vital Signs: Last Vital Signs Temp 97.1 F 08/17/25 03:56 Pulse 83 08/17/25 03:56 Resp 18 08/17/25 03:56 BP 127/61 08/17/25 03:56 Pulse Ox 95 08/17/25 03:56 O2 Del Method Nasal Cannula 08/17/25 03:56 O2 Flow Rate 4 08/17/25 03:56 BMI result Body Mass Index 19.1 Objective Data Active Medications Acetaminophen (Acetaminophen 325 Mg Tablet) 650 mg PO Q6H PRN PRN Reason: Pain, Mild 1-3,fever,headache Last Admin: 08/16/25 20:27 Dose: 650 mg Documented By: NAZARIO Amoxicillin/Clavulanate Potassium (Amoxicillin/Potassium Clav 875 Mg Tablet) 875 mg PO BID [facility] Last Admin: 08/16/25 20:27 Dose: 875 mg Documented By: NAZARIO Calcium Carbonate (Calcium Carbonate 750 Mg Tab.Chew) 750 mg PO Q4H PRN PRN Reason: Heartburn Folic Acid (Folic Acid 1 Mg Tablet) 1 mg PO DAILY [facility] Last Admin: 08/16/25 08:15 Dose: 1 mg Documented By: LUCRECIA Magnesium Hydroxide (Milk Of Magnesia 30 Ml Oral.Susp) 30 ml PO DAILY PRN PRN Reason: Constipation Magnesium Oxide (Magnesium Oxide 400 Mg Tablet) 400 mg PO DAILY [facility] Last Admin: 08/16/25 08:15 Dose: 400 mg Documented By: LUCRECIA Melatonin (Melatonin 3 Mg Tablet) 6 mg PO BEDTIME PRN PRN Reason: Insomnia Pharmacy Consult (Consult Rx Etoh Phenob Im/Po) 1 each MISCELLANE ONCE PRN; Protocol PRN Reason: Consult order Phenobarbital (Phenobarbital 15 Mg Tablet) 45 mg PO BID [facility]; Protocol Stop: 08/17/25 09:01 Last Admin: 08/16/25 20:27 Dose: 45 mg Documented By: NAZARIO Phenobarbital (Phenobarbital 15 Mg Tablet) 15 mg PO BID [facility]; Protocol Stop: 08/19/25 09:01 Phenobarbital (Phenobarbital 15 Mg Tablet) 15 mg PO DAILY [facility]; Protocol Stop: 08/21/25 09:01 Sodium Chloride (0.9 % Sodium Chloride Flush 3 Ml Syringe) 3 ml IVFLUSH QSHIFT [facility] Last Admin: 08/16/25 20:30 Dose: 3 ml Documented By: NAZARIO Thiamine HCl (Thiamine Hcl 100 Mg Tablet) 100 mg PO DAILY [facility] Last Admin: 08/16/25 08:15 Dose: 100 mg Documented By: LUCRECIA Labs 08/16/25 05:52 08/16/25 05:52 Assessment and Plan (1) Pneumonia: Status: Resolved (2) Hypoxia: Status: Resolved Plan Patient is a 55-year-old male with multiple recurrent admissions with similar complaints of ETOH intoxication, liver cirrhosis, esophageal varices, HFpEF, GERD, multiple aspiration pneumonia , homelessness, in the setting of a UD, presented after being found by the police being intoxicated and hypoxic and was brought into the ED. Patient has reportedly been admitted for similar concerns in the past and not amenable to multiple sectioned 35 in the past. Acute on chronic hypoxic respiratory failure secondary to intoxication, possible aspiration , EMMA ON 2-3 L O2 Continue treating with p.o. 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 Code status: Full code DVT prophylaxis: SCD boots given thrombocytopenia-patient appears to be bothered by this Patient needs ongoing hospitalization given acute on chronic decompensation risk to risk of delirium tremens electrolyte abnormalities in the setting of alcoholic cardiomyopathy. This note is constructed using voice recognition software. While every effort has been made to ensure accuracy, nailer operator errors may have been included. Quality Stroke Does the patient have a stroke diagnosis?: No VTE Prior VTE?: No VTE Risk Level:: Medical - moderate - high VTE Device Contraindication: N/A - Device Ordered VTE Drug Contraindication: Treatment Not Indicated
[2025-08-17] MEDS: 0.9 % Sodium Chloride Flush 3 ML SYRINGE IVFLUSH ×3 (08:34→20:03)
--- NOTE | 2025-08-17 10:57 | PC.NURSE ---
Pt took off o2 to try to ambulate to bathroom, set off bed alarm. RN to room assist pt to bathroom pt was satting in 70s until replaced w/walking o2 system on 3L, pt denied SOB but appears weak 1 assist. Educated important of using call harris and not taking off o2. Continue to monitor cont o2 sat probe.
[2025-08-18] VITALS (9 sets, daily range): BP systolic 108–144; BP diastolic 57–69; PULSE 71–104; RESP 12–18; TEMP 36.2–37.4; O2SAT 84–94
--- NOTE | 2025-08-18 07:27 | HO.PM.IMPN ---
Subjective Subjective Date of Service: 08/18/25 Interval History: Patient is well-known to the hospital on the staff Continues to endorse that he wants to leave Continues to be hypoxic requiring 3.5 L , refusing oxygen tank to go on the streets Patient deferring oxygen, patient deferring PT, patient deferring short-term placement Patient deferring rehab or addiction Services Overall not optimized, care challenging given patient's compliance-multiple admissions documented Physical Exam Exam: Exam: General: AO X 3, no acute distress, however bilateral hand tremors noted, mild slurring of speech which appears to be his baseline Resp: CTA bilateral, on 3.5 L nc (4 L yesterday) CVS: S1,S2,RRR GI: +BS, NT, no distention Skin: No rash Neuro: motor grossly intact Psych: Poor insight Vital Signs: Vital Signs: Last Vital Signs Temp 98.3 F 08/18/25 04:00 Pulse 77 08/18/25 04:00 Resp 12 08/18/25 04:00 BP 128/57 L 08/18/25 04:00 Pulse Ox 93 08/18/25 04:00 O2 Del Method Nasal Cannula 08/18/25 04:00 O2 Flow Rate 4 08/18/25 04:00 BMI result Body Mass Index 19.1 Objective Data Active Medications Acetaminophen (Acetaminophen 325 Mg Tablet) 650 mg PO Q6H PRN PRN Reason: Pain, Mild 1-3,fever,headache Last Admin: 08/18/25 00:07 Dose: 650 mg Documented By: OLEG Amoxicillin/Clavulanate Potassium (Amoxicillin/Potassium Clav 875 Mg Tablet) 875 mg PO BID [facility] Last Admin: 08/17/25 20:03 Dose: 875 mg Documented By: OLEG Calcium Carbonate (Calcium Carbonate 750 Mg Tab.Chew) 750 mg PO Q4H PRN PRN Reason: Heartburn Folic Acid (Folic Acid 1 Mg Tablet) 1 mg PO DAILY [facility] Last Admin: 08/17/25 08:33 Dose: 1 mg Documented By: PRADEEP Magnesium Hydroxide (Milk Of Magnesia 30 Ml Oral.Susp) 30 ml PO DAILY PRN PRN Reason: Constipation Magnesium Oxide (Magnesium Oxide 400 Mg Tablet) 400 mg PO DAILY [facility] Last Admin: 08/17/25 08:34 Dose: 400 mg Documented By: PRADEEP Melatonin (Melatonin 3 Mg Tablet) 6 mg PO BEDTIME PRN PRN Reason: Insomnia Pharmacy Consult (Consult Rx Etoh Phenob Im/Po) 1 each MISCELLANE ONCE PRN; Protocol PRN Reason: Consult order Phenobarbital (Phenobarbital 15 Mg Tablet) 15 mg PO BID [facility]; Protocol Stop: 08/19/25 09:01 Last Admin: 08/17/25 20:03 Dose: 15 mg Documented By: OLEG Phenobarbital (Phenobarbital 15 Mg Tablet) 15 mg PO DAILY [facility]; Protocol Stop: 08/21/25 09:01 Sodium Chloride (0.9 % Sodium Chloride Flush 3 Ml Syringe) 3 ml IVFLUSH QSHIFT [facility] Last Admin: 08/17/25 20:03 Dose: 3 ml Documented By: OLEG Thiamine HCl (Thiamine Hcl 100 Mg Tablet) 100 mg PO DAILY [facility] Last Admin: 08/17/25 08:34 Dose: 100 mg Documented By: PRADEEP Labs 08/16/25 05:52 08/16/25 05:52 Assessment and Plan (1) Pneumonia: Status: Resolved (2) Hypoxia: Status: Resolved Plan Patient is a 55-year-old male with multiple recurrent admissions with similar complaints of ETOH intoxication, liver cirrhosis, esophageal varices, HFpEF, GERD, multiple aspiration pneumonia , homelessness, in the setting of a UD, presented after being found by the police being intoxicated and hypoxic and was brought into the ED. Patient has reportedly been admitted for similar concerns in the past and not amenable to multiple sectioned 35 in the past. Acute on chronic hypoxic respiratory failure secondary to intoxication, possible aspiration , EMMA ON 3-4 L O2 Noncompliance Continue treating with p.o. 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 Code status: Full code DVT prophylaxis: SCD boots given thrombocytopenia-patient appears to be bothered by this Patient needs ongoing hospitalization given acute on chronic decompensation risk to risk of delirium tremens electrolyte abnormalities in the setting of alcoholic cardiomyopathy. Patient is well-known to the hospital on the staff Continues to endorse that he wants to leave Continues to be hypoxic requiring 3.5 L , refusing oxygen tank to go on the streets Patient deferring oxygen, patient deferring PT, patient deferring short-term placement Patient deferring rehab or addiction Services Overall not optimized, care challenging given patient's compliance-multiple admissions documented This note is constructed using voice recognition software. While every effort has been made to ensure accuracy, physician relations representative errors may have been included. Quality Stroke Does the patient have a stroke diagnosis?: No VTE Prior VTE?: No VTE Risk Level:: Medical - moderate - high VTE Device Contraindication: N/A - Device Ordered VTE Drug Contraindication: Treatment Not Indicated
[2025-08-18] MEDS: 0.9 % Sodium Chloride Flush 3 ML SYRINGE IVFLUSH ×3 (08:02→19:53)
--- NOTE | 2025-08-18 10:46 | PC.RT ---
home oxygen eval completed per MD order. patient requiring 2L at rest and 4L with ambulation. patient refusing oxygen after discharge due to being homeless and refusing to go to [facility]. MD aware.
--- NOTE | 2025-08-18 15:13 | HO.ADDICTCON ---
History of Present Illness Date of Service: 08/18/2025 Chief Complaint: hypoxia Reason for Consult: AUD Sources of Information: patient interviewed and chart reviewed HPI Narrative: Patient is a 55 year old male with AUD and CHF. Medically admitted with hypoxemia and alcohol withdrawal. Patient seen in room 461. He is awake, alert, pleasant and engaged in interview. Patient well known to t/w via previous admissions. Patient reports no change in living arrangements, he continues to stay behind the package store. He reports being happy with this set up. He continues to drink a pint daily. At admission ETOH level was 440 Magnesium 1.4 When seen by t/w he is denying withdrawal sx. Very mild tremor observed, and patient eating lunch without issue. He states that he is interested in starting ARIEL, as he met with metal moulder on 08/17 and learned that he can take medication to help cut down the amount he drinks. He does not recall ever taking ARIEL, in the past. Past Psychiatric History: hx of 3 prior detox admissions for alcohol use. does not have outpatient psychiatric providers Pt reports hx of one SI attempt via overdose on pills at the age of 17. Review of Systems Constitutional: Reports as per HPI Diagnostics Vital Signs (24Hr): Vital Signs - 24 hr 08/17/25 15:49 08/17/25 19:06 08/18/25 00:00 Temperature 97.8 F 98.7 F 99.3 F Pulse Rate 87 81 87 Respiratory Rate 18 12 12 Blood Pressure 110/59 L 114/59 L 128/69 Pulse Oximetry 90 L 91 L 90 L Oxygen Delivery Method Nasal Cannula Nasal Cannula Nasal Cannula Oxygen Flow Rate 4 4 4 08/18/25 04:00 08/18/25 07:26 08/18/25 07:57 Temperature 98.3 F 98.4 F Pulse Rate 77 75 Respiratory Rate 12 16 Blood Pressure 128/57 L 125/63 Pulse Oximetry 93 93 85 L Oxygen Delivery Method Nasal Cannula Nasal Cannula Room Air Oxygen Flow Rate 4 4 08/18/25 07:58 08/18/25 08:05 08/18/25 11:25 Temperature 97.6 F Pulse Rate 75 Respiratory Rate 16 Blood Pressure 108/58 L Pulse Oximetry 88 L 92 Oxygen Delivery Method Nasal Cannula Oxygen Flow Rate 2 2 3.5 BMI result Body Mass Index 19.1 Labs 08/16/25 05:52 08/16/25 05:52 Imaging Radiology Impressions: ITS Impressions Chest X-Ray 08/14/25 16:36 IMPRESSION: Cardiomegaly and suspected pulmonary vascular congestion. Electronically signed by: Elias Smith MD 08/14/2025 05:00 PM EDT RP Foot X-Ray 08/15/25 08:10 IMPRESSION: Osteopenia. Degenerative changes as described. Mild smooth periosteal reaction along the 1st metatarsal shaft of uncertain variance. No fracture is seen. Electronically signed by: Dony Nunn MD 08/15/2025 08:31 AM EDT RP Mental Status Exam Mental Status Exam Level of Consciousness: Awake, Appropriate and Alert Patient Behavior: Appropriate, Talkative and Cooperative Affect Description: Calm Speech Pattern: Clear Thought Content: positive for Intact and positive for [place] Judgement: Fair Medications Medications Current Medications Acetaminophen (Acetaminophen 325 Mg Tablet) 650 mg PO Q6H PRN PRN Reason: Pain, Mild 1-3,fever,headache Last Admin: 08/18/25 08:01 Dose: 650 mg Amoxicillin/Clavulanate Potassium (Amoxicillin/Potassium Clav 875 Mg Tablet) 875 mg PO BID [facility] Last Admin: 08/18/25 08:01 Dose: 875 mg Calcium Carbonate (Calcium Carbonate 750 Mg Tab.Chew) 750 mg PO Q4H PRN PRN Reason: Heartburn Folic Acid (Folic Acid 1 Mg Tablet) 1 mg PO DAILY [facility] Last Admin: 08/18/25 08:01 Dose: 1 mg Magnesium Hydroxide (Milk Of Magnesia 30 Ml Oral.Susp) 30 ml PO DAILY PRN PRN Reason: Constipation Magnesium Oxide (Magnesium Oxide 400 Mg Tablet) 400 mg PO DAILY [facility] Last Admin: 08/18/25 08:01 Dose: 400 mg Melatonin (Melatonin 3 Mg Tablet) 6 mg PO BEDTIME PRN PRN Reason: Insomnia Pharmacy Consult (Consult Rx Etoh Phenob Im/Po) 1 each MISCELLANE ONCE PRN; Protocol PRN Reason: Consult order Phenobarbital (Phenobarbital 15 Mg Tablet) 15 mg PO BID [facility]; Protocol Stop: 08/19/25 09:01 Last Admin: 08/18/25 08:01 Dose: 15 mg Phenobarbital (Phenobarbital 15 Mg Tablet) 15 mg PO DAILY [facility]; Protocol Stop: 08/21/25 09:01 Sodium Chloride (0.9 % Sodium Chloride Flush 3 Ml Syringe) 3 ml IVFLUSH QSHIFT [facility] Last Admin: 08/18/25 08:02 Dose: 3 ml Thiamine HCl (Thiamine Hcl 100 Mg Tablet) 100 mg PO DAILY [facility] Last Admin: 08/18/25 08:01 Dose: 100 mg Allergies Allergies Allergy/AdvReac Type Severity Reaction Status Date / Time No Known Allergies (No Known Allergy Verified 08/14/25 15:17 Allergies*) Assessment & Plan Assessment & Plan (1) Alcohol use disorder: Status: Acute Code(s): F10.90 - Alcohol use, unspecified, uncomplicated Assessment and Plan: naltrexone 25mg QD X3 days then increase to one tab daily. metal moulder to coordinate [facility] referral withdrawal well managed with phenobarbital at this time Total time managing care of this patient today _30___ minutes. PMFSH Past Medical History Medical History Alcohol use disorder CHF (congestive heart failure) Alcohol abuse Acute hypoxemic respiratory failure Anemia Pneumonia Alcohol withdrawal syndrome Pancytopenia Alcohol abuse Thrombocytopenia Esophageal varices Acute on chronic anemia Alcoholic liver disease Aspiration pneumonia Thrombocytopenia Malnutrition CHF (congestive heart failure) Anemia Hypomagnesemia Cirrhosis Thrombocytopenia Acute on chronic anemia CHF (congestive heart failure) Anemia Alcohol abuse Surgical History Surgical History No history of previous surgery Social History Social History Household Members: Other Household Members Other:: homeless Housing: Homeless Housing Other:: homeless Do you presently have visiting nurse or other home services: No Alcohol intake: current Alcohol intake frequency: 3 or more drinks per day Alcohol type: hard liquor Comment: pt refuse to have staff remain in [place] Patient Tobacco Use Status: Former Tobacco user Tobacco use type: Cigarette Second Hand Smoke Exposure: No Advance Directives Date on File: 07/13/23 service: No
--- NOTE | 2025-08-18 16:45 | MHC.CM.PN ---
PT STATING MAYBE HE WOULD CONSIDER STR, BUT LATER STATING HE HAS TRIED THAT BEFORE AND IS NOT INTERESTED DCP: RETURN TO THE STREET ONCE STABLE
[2025-08-19] VITALS (7 sets, daily range): BP systolic 101–142; BP diastolic 53–65; PULSE 77–88; RESP 12–18; TEMP 36.9–37.3; O2SAT 90–93
[2025-08-19] MEDS: 0.9 % Sodium Chloride Flush 3 ML SYRINGE IVFLUSH ×2 (09:10→20:55)
[2025-08-19 10:53] LABS: INTERNATIONAL NORM RATIO 1.3 (0.9-1.1); Prothrombin Time 15.4 SEC (10.9-12.4)
[2025-08-19 10:56] LABS: Hematocrit 34.4 % (42.0-52.0); Hemoglobin 11.2 g/dl (14.0-18.0); Mean Corpuscular HGB Conc 32.6 g/dl (31.0-36.0); Mean Corpuscular Hemoglobin 30.9 pg (27.0-33.0); Mean Corpuscular Volume 95.0 fL (80.0-98.0); NRBC Abs Auto 0.000 X10*3/uL (0.0-0.012); NRBC Pct Auto 0.0 /100WBC (0.0-0.2); PLT CLUMP 1; Red Blood Count 3.62 X10*6/uL (4.60-5.80)
[2025-08-19 11:03] LABS: Alanine Aminotransferase 9 U/L (0-40); Albumin Level 3.1 g/dL (3.5-5.0); Alkaline Phosphatase 162 U/L (39-117); Anion Gap 10 (12-20); Aspartate Amino Transferase 44 U/L (5-37); Blood Urea Nitrogen 12 mg/dL (9-16); Calcium 9.0 mg/dL (8.4-10.2); Carbon Dioxide 23 mmol/L (22-29); Chloride 107 mmol/L (96-108); Creatinine Clr Calc Pharmacy 99.4; Estimated Glomerular Filt Rate > 60; Magnesium 1.6 mg/dL (1.6-2.6); Potassium 4.2 mmol/L (3.3-5.1); Sodium 136 mmol/L (135-145); Total Protein 7.8 g/dL (6.5-8.0)
[2025-08-19 11:11] LABS: Platelet Count 38 X10*3/uL (160-400); White Blood Count 3.6 X10*3/uL (4.8-10.8)
--- NOTE | 2025-08-19 12:59 | PM.PSYCN ---
History of Present Illness Date of Service: 08/19/2025 Chief Complaint: hypoxia Reason for Consult: Assess capacity re: disposition Requesting physician: Tramaine Storey Discussed with referring provider: Yes (tiger texted recs) Sources of Information: patient interviewed and chart reviewed HPI Narrative: Mr. Delagdo is a 55 y/o M with h/o ETOH use d/o, liver cirrhosis, CHF, esophageal varices, pancytopenia likely 2/2 cirrhosis, medication nonadherence & chronic L leg pain who was brought to the ED by police due to intoxication. BAL was 441 on arrival. O2 sat was 88% on RA and he was placed on 3 L supplemental O2. His sat went to 86% on RA after attempting to wean off O2. CXR showed vascular congestion & he was medically admitted for tx of acute on chronic hypoxic respiratory failure 2/2 intoxication +/- aspiration. He was started on a phenobarb taper for ETOH w/d, as well as thiamine, Mg++ and folic acid. He is homeless and has had multiple medical admissions for issues related to medical use. Per medical note from 08/18, pt endorsed wanting to be discharged despite ongoing hypoxia requiring 3.5 L O2 and he refused an O2 tank to use upon d/c. He also declined PT, short-term placement, rehab or addiction services. Per addiction consult note from 08/18, pt expressed interest in starting ARIEL after learning that he can take medications to reduce his ETOH intake. He was started on naltrexone 25 mg qd x 3 days w/ plan to then titrate to 50 mg qd. Pt reports that he's been homeless for the past year. Prior to that, he lived with his niece x 10 yrs in [place] and then [place]. He reports that he left because she didn't want him to drink anymore in the home. He has stayed at shelters but felt uncomfortable with roommates in the small space and feels safer sleeping outside. Pt reports drinking ETOH since 17 y/o and can't recall any significant period of sobriety aside from times he was locked up in hospitals for medical tx and two section-35 ordered residential tx for ETOH use at [facility]. He doesn't feel like it would be helpful to undergo another section-35 tx because he purchased ETOH from a nearby package store as soon as he left the program. Pt reports that his sister and friend on the street both from alcohol-related medical issues. He expresses an understanding that continued alcohol use could kill him, especially in the setting of cirrhosis. He denies SI and states that he doesn't want to from his alcohol use but it is very difficult to avoid drinking on the street. He reports drinking 1/2 to 1 pt of vodka + 2 beers qd and he starts drinking as soon as he wakes up if he has access to ETOH. He denies h/o ETOH w/d seizures or DTs. He reports that he often wakes up very shaky and has difficulty standing up. Pt states that he hasn't taken prescription medications consistently outside of the hospital since they've been stolen. He reports that he can't see a therapist because he has no health insurance but would be open to therapy if he had access. Pt expresses an understanding that he needs supplemental O2 to maintain his O2 at a normal level. The nasal cannula has irritated his nose at times but he states that he'd be willing to use O2 upon discharge if recommended. He states that he is willing to stay in the hospital to manage his acute medical issues. Psychiatric ROS: Pt endorses intermittent situational depression and chronic anxiety, for which he self medicates with ETOH. He denies recent SI. Sleeps well w/ ETOH use every night but has had worsening sleep in hospital w/o the ETOH. Eating/appetite: pt has gone days without eating and only consuming ETOH. He reports a good appetite/eating in the hospital. Pt denies h/o psychosis Past Psychiatric History: -hx of 3 prior detox admissions for alcohol use per chart -h/o 2 section-35 mandated residential tx at [facility] for ETOH use d/o -does not have outpatient psychiatric providers -remote h/o suicide attempt via overdosing on pills and slicing his wrist. He denies receiving any medical care after these attempts. -Denies h/o inpatient psychiatric admissions Medical Evaluation Reviewed: Yes Personal & Social History: Pt has two brothers who live in [facility] but he has no contact with them. His sister from ETOH-related medical issues years ago. His mother last year. Homeless, living behind a package store [facility] Medical History Alcohol use disorder CHF (congestive heart failure) Alcohol abuse Acute hypoxemic respiratory failure Anemia Pneumonia Alcohol withdrawal syndrome Pancytopenia Alcohol abuse Thrombocytopenia Esophageal varices Acute on chronic anemia Alcoholic liver disease Aspiration pneumonia Thrombocytopenia Malnutrition CHF (congestive heart failure) Anemia Hypomagnesemia Cirrhosis Thrombocytopenia Acute on chronic anemia CHF (congestive heart failure) Anemia Alcohol abuse Surgical History No history of previous surgery Family History: denies Social History: homeless, single, no kids. unemployed. Trauma History: loss of mom, sister Diagnostics Vital Signs (24Hr): Vital Signs - 24 hr 08/18/25 15:21 08/18/25 20:00 08/19/25 00:00 Temperature 97.1 F 98.6 F 98.6 F Pulse Rate 75 76 77 Respiratory Rate 18 12 12 Blood Pressure 116/60 144/67 H 127/60 Pulse Oximetry 94 93 93 Oxygen Delivery Method Nasal Cannula Nasal Cannula Nasal Cannula Oxygen Flow Rate 3.5 4 4 08/19/25 03:28 08/19/25 07:18 08/19/25 11:40 Temperature 99.2 F 98.4 F 98.4 F Pulse Rate 82 79 77 Respiratory Rate 12 16 18 Blood Pressure 118/55 L 111/56 L 101/54 L Pulse Oximetry 90 L 92 92 Oxygen Delivery Method Nasal Cannula Nasal Cannula Nasal Cannula Oxygen Flow Rate 4 3.5 3.5 BMI result Body Mass Index 19.1 Labs 08/19/25 10:35 08/19/25 10:35 Labs: Laboratory Results - last 48 hr 08/19/25 10:35 WBC 3.6 L RBC 3.62 L Hgb 11.2 L Hct 34.4 L MCV 95.0 MCH 30.9 MCHC 32.6 RDW 17.8 H Plt Count 38 L D MPV TNP Absolute Nucleated RBC 0.000 Nucleated RBC % (auto) 0.0 PT 15.4 H INR 1.3 H Sodium 136 Potassium 4.2 D Chloride 107 Carbon Dioxide 23 Anion Gap 10 L BUN 12 Creatinine 0.63 Estim Creat Clear Calc 99.4 Estimated GFR > 60 Random Glucose 101 Calcium 9.0 D Magnesium 1.6 Total Bilirubin 1.1 H AST 44 H ALT 9 Alkaline Phosphatase 162 H Total Protein 7.8 Albumin 3.1 L EKG EKG: reviewed Imaging Radiology Impressions: ITS Impressions Chest X-Ray 08/14/25 16:36 IMPRESSION: Cardiomegaly and suspected pulmonary vascular congestion. Electronically signed by: Elias Smith MD 08/14/2025 05:00 PM EDT RP Foot X-Ray 08/15/25 08:10 IMPRESSION: Osteopenia. Degenerative changes as described. Mild smooth periosteal reaction along the 1st metatarsal shaft of uncertain variance. No fracture is seen. Electronically signed by: Dony Nunn MD 08/15/2025 08:31 AM EDT RP Mental Status Exam Mental Status Exam Narrative: Appearance: In bed, wearing hospital steph, nasal cannula in place. grooming/hygiene wnl. good eye contact Attitude: Cooperative Speech: Fluent and wnl in regard to volume, tone, prosody Motor activity: Calm Mood: 'okay' Affect: appropriate, reactive Thought process: goal directed and without evidence of formal thought disorder Thought content: Denies SI/violent ideation Perception: Denies AH/VH and does not appear to respond to internal stimuli Alert/oriented in all spheres Cognition grossly intact for recent events Insight: generally intact-- expresses an understanding of risks of continued alcohol use and how his underlying medical conditions put him at increased risk of serious health problems/ if he continues drinking. Judgment: Fair-- agreed to take naltrexone with hopes that it will curb his cravings/ETOH use. States that he will stay in the hospital to treat his acute medical issues. Medications Medications Current Medications Acetaminophen (Acetaminophen 325 Mg Tablet) 650 mg PO Q6H PRN PRN Reason: Pain, Mild 1-3,fever,headache Last Admin: 08/18/25 08:01 Dose: 650 mg Amoxicillin/Clavulanate Potassium (Amoxicillin/Potassium Clav 875 Mg Tablet) 875 mg PO BID [facility] Last Admin: 08/19/25 09:10 Dose: 875 mg Calcium Carbonate (Calcium Carbonate 750 Mg Tab.Chew) 750 mg PO Q4H PRN PRN Reason: Heartburn Folic Acid (Folic Acid 1 Mg Tablet) 1 mg PO DAILY [facility] Last Admin: 08/19/25 09:10 Dose: 1 mg Magnesium Hydroxide (Milk Of Magnesia 30 Ml Oral.Susp) 30 ml PO DAILY PRN PRN Reason: Constipation Magnesium Oxide (Magnesium Oxide 400 Mg Tablet) 400 mg PO DAILY [facility] Last Admin: 08/19/25 09:10 Dose: 400 mg Melatonin (Melatonin 3 Mg Tablet) 6 mg PO BEDTIME PRN PRN Reason: Insomnia Naltrexone HCl (Naltrexone Hcl 50 Mg Tablet) 50 mg PO DAILY [facility] Stop: 08/22/25 08:59 Last Admin: 08/19/25 09:10 Dose: 50 mg Pharmacy Consult (Consult Rx Etoh Phenob Im/Po) 1 each MISCELLANE ONCE PRN; Protocol PRN Reason: Consult order Phenobarbital (Phenobarbital 15 Mg Tablet) 15 mg PO DAILY [facility]; Protocol Stop: 08/21/25 09:01 Sodium Chloride (0.9 % Sodium Chloride Flush 3 Ml Syringe) 3 ml IVFLUSH QSHIFT [facility] Last Admin: 08/19/25 09:10 Dose: 3 ml Thiamine HCl (Thiamine Hcl 100 Mg Tablet) 100 mg PO DAILY [facility] Last Admin: 08/19/25 09:10 Dose: 100 mg Allergies Allergies Allergy/AdvReac Type Severity Reaction Status Date / Time No Known Allergies (No Known Allergy Verified 08/14/25 15:17 Allergies*) Assessment & Plan Assessment & Plan (1) Alcohol use disorder, severe, dependence: Status: Acute Code(s): F10.20 - Alcohol dependence, uncomplicated Assessment and Plan: Mr. Delgado is a 55 y/o M with h/o ETOH use d/o, liver cirrhosis, CHF, esophageal varices, pancytopenia likely 2/2 cirrhosis, medication nonadherence & chronic L leg pain who was brought to the ED by police due to intoxication. Admitted to medicine for tx of ETOH w/d and acute on chronic hypoxemia, requiring up to 4 L supplemental O2 to maintain sats >90%. Psych consult was requested to determine capacity re: dispo. Pt currently demonstrates capacity to determine his disposition. While his judgment re: disposition is impaired, his desire to be discharged back to the street rather than going to a jail, section-35 residential program or reside in a place where he can't use alcohol seems to be consistent with what has been reported in previous notes in his chart. He expresses an understanding of having cirrhosis and respiratory failure and that continued alcohol use and non-compliance with treatment can put him at risk of serious harm, including . He denies SI. He agreed to start naltrexone already, with a goal of reducing his ETOH cravings/use and is willing to engage in counseling if he had health insurance that covers it. Pt would like a medication to help him sleep. I recommend trazodone 50-100 mg qhs prn for insomnia. Thank you for referring Mr Delgado for a psychiatric consultation. Please tiger text me with any questions. Total time managing care of this patient today __75__ minutes. Patient educated on: diagnosis, substance abuse and medical condition Informed Consent: understands
--- NOTE | 2025-08-19 17:44 | HO.PM.IMPN ---
Subjective Subjective Date of Service: 08/19/25 Interval History: still refusing STR still on O2, has capacity per Psychiatr Review of Systems Review of Systems: Yes all other systems are reviewed and are negative Physical Exam Vital Signs: Vital Signs: Last Vital Signs Temp 98.5 F 08/19/25 15:08 Pulse 88 08/19/25 15:08 Resp 16 08/19/25 15:08 BP 121/53 L 08/19/25 15:08 Pulse Ox 92 08/19/25 15:08 O2 Del Method Nasal Cannula 08/19/25 15:08 O2 Flow Rate 3.5 08/19/25 15:08 BMI result Body Mass Index 19.1 Gen: in no acute distress, disheveled HEENT: sclera anicteric, moist mucus membranes Neck: supple Lungs: diminished Heart: regular rate and rhythm, no murmurs Abd: soft, non-tender, non-distended Ext: no edema Skin: warm/well-perfused Neuro: alert and oriented x3, no focal findings Psych: appropriate affect Objective Data Active Medications Acetaminophen (Acetaminophen 325 Mg Tablet) 650 mg PO Q6H PRN PRN Reason: Pain, Mild 1-3,fever,headache Last Admin: 08/18/25 08:01 Dose: 650 mg Documented By: PRADEEP Amoxicillin/Clavulanate Potassium (Amoxicillin/Potassium Clav 875 Mg Tablet) 875 mg PO BID [facility] Last Admin: 08/19/25 09:10 Dose: 875 mg Documented By: MANUELA Calcium Carbonate (Calcium Carbonate 750 Mg Tab.Chew) 750 mg PO Q4H PRN PRN Reason: Heartburn Folic Acid (Folic Acid 1 Mg Tablet) 1 mg PO DAILY [facility] Last Admin: 08/19/25 09:10 Dose: 1 mg Documented By: MANUELA Magnesium Hydroxide (Milk Of Magnesia 30 Ml Oral.Susp) 30 ml PO DAILY PRN PRN Reason: Constipation Magnesium Oxide (Magnesium Oxide 400 Mg Tablet) 400 mg PO DAILY [facility] Last Admin: 08/19/25 09:10 Dose: 400 mg Documented By: MANUELA Melatonin (Melatonin 3 Mg Tablet) 6 mg PO BEDTIME PRN PRN Reason: Insomnia Naltrexone HCl (Naltrexone Hcl 50 Mg Tablet) 50 mg PO DAILY [facility] Stop: 08/22/25 08:59 Last Admin: 08/19/25 09:10 Dose: 50 mg Documented By: MANUELA Pharmacy Consult (Consult Rx Etoh Phenob Im/Po) 1 each MISCELLANE ONCE PRN; Protocol PRN Reason: Consult order Phenobarbital (Phenobarbital 15 Mg Tablet) 15 mg PO DAILY [facility]; Protocol Stop: 08/21/25 09:01 Sodium Chloride (0.9 % Sodium Chloride Flush 3 Ml Syringe) 3 ml IVFLUSH QSHIFT [facility] Last Admin: 08/19/25 09:10 Dose: 3 ml Documented By: MANUELA Thiamine HCl (Thiamine Hcl 100 Mg Tablet) 100 mg PO DAILY [facility] Last Admin: 08/19/25 09:10 Dose: 100 mg Documented By: MANUELA Labs 08/19/25 10:35 08/19/25 10:35 Labs: Laboratory Results - last 24 hr 08/19/25 10:35 MCV 95.0 MCH 30.9 MCHC 32.6 RDW 17.8 H Plt Count 38 L D MPV TNP Absolute Nucleated RBC 0.000 Nucleated RBC % (auto) 0.0 PT 15.4 H INR 1.3 H Anion Gap 10 L Estim Creat Clear Calc 99.4 Estimated GFR > 60 Random Glucose 101 Calcium 9.0 D Magnesium 1.6 Total Bilirubin 1.1 H AST 44 H ALT 9 Alkaline Phosphatase 162 H Total Protein 7.8 Albumin 3.1 L Assessment and Plan (1) Pneumonia: Status: Resolved (2) Hypoxia: Status: Resolved Plan d5 55yo homeless M with AUD, EtOH cirrhosis with varices, HFpEF, GERD, recurrent aspiration pneumonia brought in by police intoxicated + hypoxic, admitted for acute hypoxic respiratory failure acute hypoxic respiratory failure - supplemental O2, wean as tolerated, currently on 3.5L - 08/15-08/16 piperacillin-tazobactam, 08/16- Augmentin chronic HFpEF, EtOH cardiomyopathy - appears euvolemic at this time EtOH cirrhosis with varices, pancytopenia - monitor CBC AUD with impending withdrawal - phenobarbital taper, naltrexone, Addiction Medicine consulted, thiamine, folate hypoMg - repleted, continue PO maintenance VTE ppx: SCDs, no heparin given low platelets dispo: PT recommended IPR, pt refusing, wanting to go back on the streets, per Psychiatry pt has capacity In my clinical judgment, the patient requires continued inpatient hospitalization for the following reasons: hypoxia Total time managing care of this patient today: 40 minutes. Quality Stroke Does the patient have a stroke diagnosis?: No VTE Prior VTE?: No VTE Risk Level:: Medical - moderate - high VTE Device Contraindication: N/A - Device Ordered VTE Drug Contraindication: Treatment Not Indicated
[2025-08-20] VITALS (7 sets, daily range): BP systolic 97–123; BP diastolic 53–64; PULSE 76–84; RESP 18–20; TEMP 36.6–37; O2SAT 92–98
[2025-08-20 07:16] LABS: Hematocrit 33.2 % (42.0-52.0); Hemoglobin 10.8 g/dl (14.0-18.0); Mean Corpuscular HGB Conc 32.5 g/dl (31.0-36.0); Mean Corpuscular Hemoglobin 30.7 pg (27.0-33.0); Mean Corpuscular Volume 94.3 fL (80.0-98.0); NRBC Abs Auto 0.000 X10*3/uL (0.0-0.012); NRBC Pct Auto 0.0 /100WBC (0.0-0.2); Red Blood Count 3.52 X10*6/uL (4.60-5.80); White Blood Count 4.0 X10*3/uL (4.8-10.8)
[2025-08-20 07:17] LABS: Platelet Count 43 X10*3/uL (160-400)
[2025-08-20 07:23] LABS: Alanine Aminotransferase 7 U/L (0-40); Albumin Level 3.1 g/dL (3.5-5.0); Alkaline Phosphatase 174 U/L (39-117); Anion Gap 10 (12-20); Aspartate Amino Transferase 43 U/L (5-37); Blood Urea Nitrogen 18 mg/dL (9-16); Calcium 9.2 mg/dL (8.4-10.2); Carbon Dioxide 20 mmol/L (22-29); Chloride 109 mmol/L (96-108); Creatinine Clr Calc Pharmacy 92.1; Estimated Glomerular Filt Rate > 60; Magnesium 1.7 mg/dL (1.6-2.6); Potassium 4.9 mmol/L (3.3-5.1); Sodium 134 mmol/L (135-145); Total Protein 7.7 g/dL (6.5-8.0)
[2025-08-20] MEDS: 0.9 % Sodium Chloride Flush 3 ML SYRINGE IVFLUSH ×3 (08:15→23:37)
--- NOTE | 2025-08-20 15:42 | HO.PM.IMPN ---
Subjective Subjective Date of Service: 08/20/25 Interval History: refuses STR refuses to go to longterm refuses home oxygen insistent he will go back to living on streets Review of Systems Review of Systems: Yes all other systems are reviewed and are negative Physical Exam Vital Signs: Vital Signs: Last Vital Signs Temp 98.3 F 08/20/25 10:58 Pulse 84 08/20/25 10:58 Resp 18 08/20/25 10:58 BP 111/61 08/20/25 10:58 Pulse Ox 92 08/20/25 10:58 O2 Del Method Nasal Cannula 08/20/25 10:58 O2 Flow Rate 4 08/20/25 10:58 BMI result Body Mass Index 19.1 Gen: in no acute distress, disheveled HEENT: sclera anicteric, moist mucus membranes Neck: supple Lungs: diminished Heart: regular rate and rhythm, no murmurs Abd: soft, non-tender, non-distended Ext: no edema Skin: warm/well-perfused Neuro: alert and oriented x3, no focal findings Psych: appropriate affect Objective Data Active Medications Acetaminophen (Acetaminophen 325 Mg Tablet) 650 mg PO Q6H PRN PRN Reason: Pain, Mild 1-3,fever,headache Last Admin: 08/18/25 08:01 Dose: 650 mg Documented By: PRADEEP Amoxicillin/Clavulanate Potassium (Amoxicillin/Potassium Clav 875 Mg Tablet) 875 mg PO BID [facility] Last Admin: 08/20/25 08:14 Dose: 875 mg Documented By: DENNIS Calcium Carbonate (Calcium Carbonate 750 Mg Tab.Chew) 750 mg PO Q4H PRN PRN Reason: Heartburn Folic Acid (Folic Acid 1 Mg Tablet) 1 mg PO DAILY [facility] Last Admin: 08/20/25 08:15 Dose: 1 mg Documented By: DENNIS Magnesium Hydroxide (Milk Of Magnesia 30 Ml Oral.Susp) 30 ml PO DAILY PRN PRN Reason: Constipation Magnesium Oxide (Magnesium Oxide 400 Mg Tablet) 400 mg PO DAILY [facility] Last Admin: 08/20/25 08:15 Dose: 400 mg Documented By: DENNIS Melatonin (Melatonin 3 Mg Tablet) 6 mg PO BEDTIME PRN PRN Reason: Insomnia Naltrexone HCl (Naltrexone Hcl 50 Mg Tablet) 50 mg PO DAILY [facility] Stop: 08/22/25 08:59 Last Admin: 08/20/25 08:15 Dose: 50 mg Documented By: DENNIS Pharmacy Consult (Consult Rx Etoh Phenob Im/Po) 1 each MISCELLANE ONCE PRN; Protocol PRN Reason: Consult order Phenobarbital (Phenobarbital 15 Mg Tablet) 15 mg PO DAILY [facility]; Protocol Stop: 08/21/25 09:01 Last Admin: 08/20/25 08:14 Dose: 15 mg Documented By: DENNIS Sodium Chloride (0.9 % Sodium Chloride Flush 3 Ml Syringe) 3 ml IVFLUSH QSHIFT [facility] Last Admin: 08/20/25 08:15 Dose: 3 ml Documented By: DENNIS Thiamine HCl (Thiamine Hcl 100 Mg Tablet) 100 mg PO DAILY [facility] Last Admin: 08/20/25 08:15 Dose: 100 mg Documented By: DENNIS Labs 08/20/25 06:47 08/20/25 06:47 Labs: Laboratory Results - last 24 hr 08/20/25 06:47 MCV 94.3 MCH 30.7 MCHC 32.5 RDW 17.9 H Plt Count 43 L MPV 12.1 Absolute Nucleated RBC 0.000 Nucleated RBC % (auto) 0.0 Anion Gap 10 L Estim Creat Clear Calc 92.1 Estimated GFR > 60 Random Glucose 94 Calcium 9.2 Magnesium 1.7 Total Bilirubin 0.9 AST 43 H ALT 7 Alkaline Phosphatase 174 H Total Protein 7.7 Albumin 3.1 L Assessment and Plan (1) Pneumonia: Status: Resolved (2) Hypoxia: Status: Resolved Plan d6 55yo homeless M with AUD, EtOH cirrhosis with varices, HFpEF, GERD, recurrent aspiration pneumonia brought in by police intoxicated + hypoxic, admitted for acute hypoxic respiratory failure acute hypoxic respiratory failure - supplemental O2, wean as tolerated, currently on 3.5L and needs home O2 - 08/15-08/16 piperacillin-tazobactam, 08/16- Augmentin chronic HFpEF, EtOH cardiomyopathy - appears euvolemic at this time EtOH cirrhosis with varices, pancytopenia - monitor CBC AUD with impending withdrawal - phenobarbital taper, naltrexone, Addiction Medicine consulted, thiamine, folate hypoMg - repleted, continue PO maintenance VTE ppx: SCDs, no heparin given low platelets dispo: PT recommended IPR, pt refusing, wanting to go back on the streets, per Psychiatry pt has capacity In my clinical judgment, the patient requires continued inpatient hospitalization for the following reasons: hypoxia Total time managing care of this patient today: 40 minutes. Quality Stroke Does the patient have a stroke diagnosis?: No VTE Prior VTE?: No VTE Risk Level:: Medical - moderate - high VTE Device Contraindication: N/A - Device Ordered VTE Drug Contraindication: Treatment Not Indicated
--- NOTE | 2025-08-20 16:04 | MHC.CM.PN ---
EMR REVIEWED, PER MD PT MEDICALLY CLEARED FOR DC EXCEPT FOR O2 REQ, PT CURRENTLY ON 4L, CM MET W/PT TO SEE IF HE WILL RECONSIDER STR, PT CONT'S TO DECLINE STR HOWEVER PER PT'S RN PT AGREEABLE TO STAY ANOTHER NIGHT TO CONT TO WEAN PT OFF O2, HOSPITALIST AGREEABLE, CM WILL CONT TO FOLLOW DC NEEDS.
[2025-08-21] VITALS: BP 95/66; PULSE 78; RESP 18; TEMP 35.9; O2SAT 94
[2025-08-21 04:00] VITALS: BP 145/66; PULSE 76; RESP 18; TEMP 36; O2SAT 97
[2025-08-21 07:54] VITALS: BP 111/56; PULSE 76; RESP 18; TEMP 37.1; O2SAT 93
--- NOTE | 2025-08-21 09:34 | P.DS_ITS ---
DS: Providers Provider Date of Service: 08/21/25 Date of admission: 08/15/25 07:01 Date of discharge: 08/21/25 Primary care physician: [facility] Consults: 08/16/25 12:56 Addiction Medicine Provider Routine Consulting Provider: Addiction Covering Reason for consultation: aud 08/17/25 13:14 Consult to Comprehensive Care Routine Consulting Provider: [facility] 08/19/25 11:44 Consult to Psychiatry Routine Consulting Provider: [facility] Psych Covering Reason for consultation: does he have capacity re: disposition? DS: Diagnosis Discharge Diagnosis (1) Pneumonia: Status: Resolved (2) Hypoxia: Status: Resolved (3) Alcohol use disorder: Status: Acute (4) Alcoholic intoxication: Status: Acute (5) Aspiration pneumonia: Status: Acute (6) Homeless: Status: Inactive (7) Hypomagnesemia: Status: Acute (8) Cirrhosis: Status: Acute DS: Summary Hospital Course Hospital Course: From the history and physical by the admitting hospitalist, MADISON Shafer, 08/15/25: 'This is a 55-year-old homeless male who history of alcohol abuse, liver cirrhosis who was brought in by the police after being found intoxicated. His alcohol level was 441 on arrival, labs appeared to be near baseline. His oxygen saturation was 88% on room air, he was placed on 3 L of supplemental oxygen in order to maintain oxygen saturation above 90%. He was observed overnight and when he was more awake and alert it was attempted to wean his oxygen however he remained hypoxic with an oxygen saturation of 86% on room air. Patient is a vague historian, reporting right ankle pain (reportedly have chronic left leg pain) does not think he fell. Chest x-ray showed pulmonary vascular congestion although pro BNP was low at 100 he received a dose of IV Lasix and the decision was made to admit him to the hospital for further management of hypoxic respiratory failure.' 55yo homeless M with AUD, EtOH cirrhosis with varices, HFpEF, GERD, recurrent aspiration pneumonia; brought in by police intoxicated + hypoxic, admitted for acute hypoxic respiratory failure. Hospital course by problem: acute hypoxic respiratory failure due to aspiration pneumonia - qualified for home oxygen but refused to get it on discharge and refused placement in fpc or short-term rehabilitation as medically advised; pt seen by psychiatry and deemed to have competency to make his own decisions, however ill-advised - treated with piperacillin-tazobactam 08/15-08/16, Augmentin 08/16-08/21; discharged on 3 more days of Augmentin EtOH cirrhosis with varices, pancytopenia - CBC stable AUD with impending withdrawal - treated preventively with phenobarbital taper; also consulted Addiction Medicine; started naltrexone; also given thiamine and folate hypoMg - repleted, continue PO maintenance He was discharged to the [facility], having refused multiple offers of fpc or STR placement. Time Attestation Discharge Coordination Time (in mins): 35 Quality: Safe Use of Opioids Does Pt have an Active Cancer Diagnosis on the Problem List?: No Quality: Stroke Does the patient have a stroke diagnosis?: No Physical Exam Vital Signs: Vital Signs: Last Vital Signs Temp 98.7 F 08/21/25 07:54 Pulse 76 08/21/25 07:54 Resp 18 08/21/25 07:54 BP 111/56 L 08/21/25 07:54 Pulse Ox 93 08/21/25 07:54 O2 Del Method Room Air 08/21/25 07:54 O2 Flow Rate 4 08/21/25 00:00 BMI result Body Mass Index 19.1 Gen: in no acute distress, disheveled HEENT: sclera anicteric, moist mucus membranes Neck: supple Lungs: diminished Heart: regular rate and rhythm, no murmurs Abd: soft, non-tender, non-distended Ext: no edema Skin: warm/well-perfused Neuro: alert and oriented x3, no focal findings Psych: appropriate affect DS: Data Data Completed and Pending Completed studies during hospitalization [Text1]: Laboratory Results WBC 4.0 X10*3/uL (4.8-10.8) L 08/20/25 06:47 RBC 3.52 X10*6/uL (4.60-5.80) L 08/20/25 06:47 Hgb 10.8 g/dl (14.0-18.0) L 08/20/25 06:47 Hct 33.2 % (42.0-52.0) L 08/20/25 06:47 MCV 94.3 fL (80.0-98.0) 08/20/25 06:47 MCH 30.7 pg (27.0-33.0) 08/20/25 06:47 MCHC 32.5 g/dl (31.0-36.0) 08/20/25 06:47 RDW 17.9 % (11.0-16.0) H 08/20/25 06:47 Plt Count 43 X10*3/uL (160-400) L 08/20/25 06:47 MPV 12.1 fL (9.4-12.4) 08/20/25 06:47 Immature Gran % (Auto) 0.4 % (0.0-0.4) 08/16/25 05:52 Neut % (Auto) 65.1 % (45-73) 08/16/25 05:52 Lymph % (Auto) 22.0 % (20-40) 08/16/25 05:52 [place] % (Auto) 8.8 % (2-11) 08/16/25 05:52 Eos % (Auto) 2.6 % (0-4) 08/16/25 05:52 Baso % (Auto) 1.1 % (0-2) 08/16/25 05:52 Lymph # (Auto) 0.6 X10*3/uL (1.2-4.9) L 08/16/25 05:52 [place] # (Auto) 0.2 X10*3/uL (0.1-1.2) 08/16/25 05:52 Eos # (Auto) 0.1 X10*3/uL (0.0-0.4) 08/16/25 05:52 Baso # (Auto) 0.0 X10*3/uL (0.0-0.2) 08/16/25 05:52 Abs Immat Gran (auto) 0.01 X10*3/uL (0.00-0.03) 08/16/25 05:52 Absolute Neuts (auto) 1.8 x10*3/uL (2.0-8.3) L 08/16/25 05:52 Absolute Nucleated RBC 0.000 X10*3/uL (0.0-0.012) 08/20/25 06:47 Nucleated RBC % (auto) 0.0 /100WBC (0.0-0.2) 08/20/25 06:47 Smear Tech's Comments VERIFIED 08/16/25 05:52 PT 15.4 SEC (10.9-12.4) H 08/19/25 10:35 INR 1.3 (0.9-1.1) H 08/19/25 10:35 Sodium 134 mmol/L (135-145) L 08/20/25 06:47 Potassium 4.9 mmol/L (3.3-5.1) 08/20/25 06:47 Chloride 109 mmol/L (96-108) H 08/20/25 06:47 Carbon Dioxide 20 mmol/L (22-29) L 08/20/25 06:47 Anion Gap 10 (12-20) L 08/20/25 06:47 BUN 18 mg/dL (9-16) H 08/20/25 06:47 Creatinine 0.68 mg/dL (0.5-1.4) 08/20/25 06:47 Estim Creat Clear Calc 92.1 08/20/25 06:47 Estimated GFR > 60 08/20/25 06:47 Random Glucose 94 mg/dL (60-115) 08/20/25 06:47 Calcium 9.2 mg/dL (8.4-10.2) 08/20/25 06:47 Magnesium 1.7 mg/dL (1.6-2.6) 08/20/25 06:47 Total Bilirubin 0.9 mg/dL (0.0-1.0) 08/20/25 06:47 AST 43 U/L (5-37) H 08/20/25 06:47 ALT 7 U/L (0-40) 08/20/25 06:47 Alkaline Phosphatase 174 U/L (39-117) H 08/20/25 06:47 NT-Pro-B Natriuret Pep 108.4 pg/mL (<300) 08/14/25 17:12 Total Protein 7.7 g/dL (6.5-8.0) 08/20/25 06:47 Albumin 3.1 g/dL (3.5-5.0) L 08/20/25 06:47 Lipase 21 U/L (8-78) 08/14/25 17:12 Urine Color Yellow 08/15/25 09:20 Urine Appearance Clear 08/15/25 09:20 Urine pH 6.5 (5.0-9.0) 08/15/25 09:20 Ur Specific [place] <= 1.005 (1.005-1.025) 08/15/25 09:20 Urine Protein Negative mg/dL (Neg-Trace) 08/15/25 09:20 Urine Glucose (UA) Negative mg/dL (Negative) 08/15/25 09:20 Urine Ketones Negative mg/dL (Negative) 08/15/25 09:20 Urine Blood Negative (Negative) 08/15/25 09:20 Urine Nitrite Negative (Negative) 08/15/25 09:20 Ur Leukocyte Esterase Negative (Negative) 08/15/25 09:20 Urine RBC 0-2 /HPF (0-2) 08/15/25 09:20 Urine WBC 0-5 /HPF (0-5) 08/15/25 09:20 Ur Squamous Epith Cells 0-2 /HPF (0-2) 08/15/25 09:20 Urine Bacteria None Seen (None Seen) 08/15/25 09:20 Hyaline Casts 0-2 /LPF (0-2) 08/15/25 09:20 Urine Opiates Screen Not Detected (Not Detect) 08/15/25 09:20 Ur Buprenorphine Scrn Not Detected ng/mL (Not Detect) 08/15/25 09:20 Ur Oxycodone Screen Not Detected ng/mL (Not Detect) 08/15/25 09:20 Urine Methadone Screen Not Detected ng/mL (Not Detect) 08/15/25 09:20 Urine Fentanyl Screen Not Detected (Not Detect) 08/15/25 09:20 Ur Barbiturates Screen POSITIVE (Not Detect) H 08/15/25 09:20 Ur Phencyclidine Scrn Not Detected (Not Detect) 08/15/25 09:20 Ur Amphetamines Screen Not Detected (Not Detect) 08/15/25 09:20 U Benzodiazepines Scrn Not Detected (Not Detect) 08/15/25 09:20 Urine Cocaine Screen Not Detected (Not Detect) 08/15/25 09:20 U Marijuana (THC) Screen Not Detected (Not Detect) 08/15/25 09:20 Ethyl Alcohol 441 mg/dL H* 08/14/25 17:12 Impressions Chest X-Ray 08/14/25 16:36 IMPRESSION: Cardiomegaly and suspected pulmonary vascular congestion. Electronically signed by: Elias Smith MD 08/14/2025 05:00 PM EDT RP Foot X-Ray 08/15/25 08:10 IMPRESSION: Osteopenia. Degenerative changes as described. Mild smooth periosteal reaction along the 1st metatarsal shaft of uncertain variance. No fracture is seen. Electronically signed by: Dony Nunn MD 08/15/2025 08:31 AM EDT RP Discharge Plan Discharge Anticipated Discharge Date/Time: 08/20/25 14:36 Patient Disposition: Home, Self-Care Discharge Diagnosis: acute hypoxic respiratory failure due to aspiration pneumonia Referrals: [facility] [Primary Care Provider, Medical] - 1 Week Discharge Medications: New naltrexone 50 mg Tablet 50 mg PO DAILY Qty: 30 0RF magnesium oxide 400 mg (241.3 mg magnesium) Tablet 400 mg PO DAILY Qty: 30 0RF folic acid 1 mg Tablet 1 mg PO DAILY Qty: 30 0RF amoxicillin-pot clavulanate 875-125 mg Tablet 1 tab PO BID Qty: 6 0RF thiamine mononitrate (vit B1) 100 mg Tablet 100 mg PO DAILY Qty: 30 0RF albuterol sulfate [Ventolin HFA] 90 mcg/actuation HFA aerosol inhaler 2 puff inhalation Q4-6H PRN (Reason: shortness of breath or wheezing) Qty: 8.5 0RF Discharge Orders: Discharge Order (Routine); Ordered 08/21/25 Ordered By: Tramaine Storey Diet: Advance to usual diet Activity on Discharge: As tolerated Stand Alone Forms: Patient Portal Discharge page Print Language: Uzbek Care Plan Goals: sobriety Health Concerns: acute hypoxic respiratory failure due to aspiration pneumonia Plan of Treatment: you refused oxygen; return to the hospital as soon as you decide otherwise use albuterol inhaler as needed for shortness of breath or wheezing amoxicillin-clavulanate twice daily for 3 days avoid alcohol take naltrexone take thiamine and folic acid Please follow up with your primary care doctor within 1 week. Return to the hospital if you experience recurrent or worsening symptoms. Assessment: See Discharge Summary.
[2025-08-21 09:45] VITALS: BP 109/59; PULSE 94; RESP 20; TEMP 36.8; O2SAT 87
--- NOTE | 2025-08-21 09:50 | PC.NURSE ---
Patient discharging to streets per patient preference. Discharge paperwork reviewed- verbalized understanding. Prescribed medications received from [facility] outpatient pharmacy. SpO2 level 87% on room air. Respirations even and unlabored. Denies chest pain, shortness of breath, or difficulty breathing. Dr. Storey notified and okayed to continue with discharge. Patient adamant about discharging. Full set of vital signs obtained and stable- see chart for details. Accompanied to main entrance by hospital staff via wheelchair.
--- NOTE | 2025-08-21 09:52 | MHC.CM.PN ---
PT TO DC TODAY, HE DECLINES ANY COMMUNITY SERVICES AND DOES NOT WANT TRANSPORTATION ARRANGED FOR HIM.
--- NOTE | 2025-08-25 20:23 | P.CDIM_ITS ---
PROVIDER RESPONSE TEXT: To clarify, the appropriate diagnosis supported by the clinical indicators: Aspiration Pneumonitis: Patient is well-known to the hospital with recurrent acute on chronic aspiration pneumonia secondary to alcohol use disorder, given chronic failure to maintain sobriety, alcohol aspiration pneumonitis can not be ruled out QUERY TEXT: PHYSICIAN'S DOCUMENTATION REQUEST Date of Query: 08/18/2025 07:44 AM EDT Patient Name: Charbel Delgado Admit Date: 08/15/2025 Dear Loida Haro MD, A review of the medical record indicates additional documentation may be needed. Please review below and update the documentation accordingly. Clinical Indicators: Cxr 08/14/2025 - Impression: Cardiomegaly and suspected pulmonary vascular congestion. Progress note 08/15/2025 - Chest Xray reading vascular congestion, due to alcohol intoxication, probable aspiration, will treat empirically with IV Zosyn. Progress note 08/16/2025 - Acute on chronic hypoxic respiratory failure secondary to intoxication, possible aspiration. Treating with p.o. antibiotics given chronicity and now starting on room air. Based on the above, could you clarify in the Progress Notes further specificity regarding further specificity to the documented aspiration: Aspiration Pneumonitis due to food, vomitus, gas or liquids etc. Aspiration Pneumonia possible, probable, suspected, cannot rule out Aspiration due to other cause please specify Other (explain) Clinically unable to determine (explain) Thank you, Rina Gutierrez, CCS, CDIS Use of terms such as suspected, likely, concern for, or probable (associated with a specific diagnosis that is being evaluated, monitored, or treated as if it exists) are acceptable and can be coded in the inpatient setting, when documented at the time of discharge. Please use your independent medical judgment in providing your response. THIS QUERY IS PART OF THE PERMANENT MEDICAL RECORD
== END 2025-08-21 10:10 | disposition home or self-care (01) | DRG 816 ==
LOC: HO.ED 08-15 06:32 → HO.EDOVER 08-15 07:26 → HO.IMC 08-15 19:20 → HO.S3 08-20 17:57
PROVIDERS: Physician Assistant; Physician Assistant Medical; Admitting Provider Internal Medicine; Emergency Provider Emergency Medicine Emergency Medical Services; Visit Provider Family Medicine
DX: T51.0X1A Toxic effect of ethanol, accidental (unintentional), initial encounter (principal); J96.21 Acute and chronic respiratory failure with hypoxia; J69.8 Pneumonitis due to inhalation of other solids and liquids; D61.818 Other pancytopenia; I85.10 Secondary esophageal varices without bleeding; E87.0 Hyperosmolality and hypernatremia; I42.6 Alcoholic cardiomyopathy; Y90.8 Blood alcohol level of 240 mg/100 ml or more; Z59.02 Unsheltered homelessness; I11.0 Hypertensive heart disease with heart failure; I50.32 Chronic diastolic (congestive) heart failure; F10.129 Alcohol abuse with intoxication, unspecified; F10.139 Alcohol abuse with withdrawal, unspecified; G89.21 Chronic pain due to trauma; M25.572 Pain in left ankle and joints of left foot; K70.30 Alcoholic cirrhosis of liver without ascites; E83.42 Hypomagnesemia; D73.1 Hypersplenism; K21.9 Gastro-esophageal reflux disease without esophagitis; Z91.148 Patient's other noncompliance with medication regimen for other reason; Z87.891 Personal history of nicotine dependence; Z79.899 Other long term (current) drug therapy
CPT/HCPCS: 36415; 71045; 73630; 80048; 80053; 80307; 81001; 83690; 83735; 83880; 85025; 85027; 85610; 93005; 97116; 97162; 99285; J1938; J2543; J2560; J3475; S9485

== ENCOUNTER → 2025-08-14 16:24 | Outpatient (BNV) | payer MEDICAID, SELFPAY | PROVIDERS: Admitting Provider Internal Medicine; Emergency Provider Emergency Medicine Emergency Medical Services; Visit Provider Internal Medicine | DX: R06.02 Shortness of breath (principal) | CPT/HCPCS: 93010 ==

== ENCOUNTER → 2025-08-14 16:24 | Outpatient (BNV) | payer MEDICAID, SELFPAY | PROVIDERS: Emergency Provider Emergency Medicine Emergency Medical Services; Visit Provider Radiology Diagnostic Radiology | DX: I51.7 Cardiomegaly (principal) | CPT/HCPCS: 71045 ==

== ENCOUNTER 2025-08-15 07:01 | Outpatient (BNV) | payer MEDICAID, SELFPAY | END 2025-08-15 08:10 | PROVIDERS: Admitting Provider Internal Medicine; Emergency Provider Emergency Medicine Emergency Medical Services; Visit Provider Radiology Diagnostic Radiology | DX: M19.071 Primary osteoarthritis, right ankle and foot (principal); M85.871 Other specified disorders of bone density and structure, right ankle and foot | CPT/HCPCS: 73630 ==

== ENCOUNTER → 2025-08-15 07:01 | Outpatient (BNV) | payer MEDICAID, SELFPAY | PROVIDERS: Admitting Provider Internal Medicine; Emergency Provider Emergency Medicine Emergency Medical Services; Visit Provider Student in an Organized Health Care Education/Training Program | DX: J18.9 Pneumonia, unspecified organism (principal); R09.02 Hypoxemia | CPT/HCPCS: 99223; 99232; 99239 ==

== ENCOUNTER → 2025-08-15 07:01 | Outpatient (BNV) | payer OTHER, SELFPAY | PROVIDERS: Admitting Provider Internal Medicine; Emergency Provider Emergency Medicine Emergency Medical Services; Visit Provider Nurse Practitioner Psychiatric/Mental Health | DX: F10.90 Alcohol use, unspecified, uncomplicated (principal) | CPT/HCPCS: 99232 ==

== ENCOUNTER 2025-08-21 19:34 | Emergency (ER) | payer MEDICAID, SELFPAY ==
--- NOTE | ~2025-08-21 | XR_ITS ---
CLINICAL HISTORY: sob 1 view chest x-ray Comparison: CR/SR - XR CHEST 1 VIEW - 08/14/2025 04:48 PM EDT Findings: Hypoventilatory exam. Prominent perihilar markings. No pleural effusion or pneumothorax. Mild cardiomegaly. No acute fracture. IMPRESSION: 1. Cardiomegaly with pulmonary vascular congestion. This document has been electronically signed by: Makayla Austin MD on 08/21/2025 21:58:35
[2025-08-21 19:43] VITALS: BMI 18.9
--- NOTE | 2025-08-21 19:51 | PC.NURSE ---
pt arrived [facility], complains of leg pain, R foot more pain than left, mild edema, no pitting edema. pt chnaged over into blue steph and hospital pants, security at bedside for safety check.
[2025-08-21 20:02] VITALS: BP 99/55; PULSE 69; RESP 16; TEMP 36.3; O2SAT 92
[2025-08-21 20:25] LABS: Hemoglobin 10.7 g/dl (14.0-18.0); Lymphocytes Absolute Auto 0.6 X10*3/uL (1.2-4.9); NRBC Abs Auto 0.000 X10*3/uL (0.0-0.012); NRBC Pct Auto 0.0 /100WBC (0.0-0.2); SCAN SMEAR FLAG 1
[2025-08-21 20:27] LABS: Hematocrit 34.3 % (42.0-52.0); Imm Gran Abs Auto 0.04 X10*3/uL (0.00-0.03); Imm Gran Pct Auto 1.0 % (0.0-0.4); MANUAL DIFF FLAG SCAN; Mean Corpuscular HGB Conc 31.2 g/dl (31.0-36.0); Mean Corpuscular Hemoglobin 30.3 pg (27.0-33.0); Mean Corpuscular Volume 97.2 fL (80.0-98.0); PLT CLUMP 1; Red Blood Count 3.53 X10*6/uL (4.60-5.80)
[2025-08-21 20:29] LABS: PLT ABN DIST 1
[2025-08-21 20:42] LABS: Alanine Aminotransferase 13 U/L (0-40); Albumin Level 3.8 g/dL (3.5-5.0); Alkaline Phosphatase 173 U/L (39-117); Anion Gap 15 (12-20); Aspartate Amino Transferase 46 U/L (5-37); Blood Urea Nitrogen 25 mg/dL (9-16); Calcium 9.4 mg/dL (8.4-10.2); Carbon Dioxide 17 mmol/L (22-29); Chloride 107 mmol/L (96-108); Cholesterol 118 mg/dL (<200); Creatinine Clr Calc Pharmacy 52.7; Estimated Glomerular Filt Rate > 60; HDL Cholesterol 29 mg/dL (>40); Magnesium 2.3 mg/dL (1.6-2.6); Platelet Count 48 X10*3/uL (160-400); Potassium 5.1 mmol/L (3.3-5.1); Sodium 134 mmol/L (135-145); Total Protein 9.1 g/dL (6.5-8.0); Triglycerides 62 mg/dL (<150); White Blood Count 3.9 X10*3/uL (4.8-10.8)
[2025-08-21 22:57] VITALS: BP 95/55
[2025-08-21] MEDS: Furosemide 40 MG/4 ML VIAL IVPUSH (22:57)
--- NOTE | 2025-08-21 23:04 | PC.NURSE ---
pt medicated per Jan, tank replaced with full tank, pt continues on 2L per provider. sp02 drops to 85% on roomair
[2025-08-21 23:16] LABS: Appearance Urine Clear; Glucose Urine UA Negative (Negative); PH 5.0 (5.0-9.0); Specific Gravity - Urine 1.015 (1.005-1.025)
[2025-08-22 00:02] VITALS: BP 91/56; PULSE 72; RESP 18; TEMP 36.6; O2SAT 93
[2025-08-22 01:24] VITALS: BP 83/53; O2SAT 94
[2025-08-22 02:01] VITALS: BP 81/51; PULSE 91; RESP 18; TEMP 36.8; O2SAT 94
[2025-08-22 04:33] VITALS: BP 92/44; PULSE 73; RESP 16; TEMP 36.9; O2SAT 94
--- NOTE | 2025-08-22 05:00 | PC.NURSE ---
pt observed to have dried blood under his R eye, pt states he scratched a scab, small scab noted, blood cleaned from pt face.
--- NOTE | 2025-08-22 05:24 | ED.GENADULT ---
HPI - General Adult General Chief complaint: Extremity Injury, Lower Stated complaint: ETOH, ankle pain, weakness, BP 178/88 Time Seen by Provider: 08/21/25 20:09 Source: patient and EMS Limitations: other (Intoxication) History of Present Illness ED Provider: Trudy Brannon PA-C HPI narrative: 55-year-old male with a history of alcohol use disorder, end-stage liver cirrhosis, chronic thrombocytopenia, chronic dependent edema, recurrent pneumonia, who presents being found intoxicated in public. Patient complains of bilateral leg pain he has not been taking his Lasix as directed. Related Data Previous Rx's ?Medication ?Instructions ?Recorded albuterol sulfate 90 mcg/actuation 2 puff inhalation Q4-6H PRN 08/20/25 aerosol inhaler (Ventolin HFA) shortness of breath or wheezing #8.5 grams amoxicillin 875 mg-potassium 1 tab PO BID #6 tabs 08/20/25 clavulanate 125 mg tablet folic acid 1 mg tablet 1 mg PO DAILY #30 tabs 08/20/25 magnesium oxide 400 mg (241.3 mg 400 mg PO DAILY #30 tabs 08/20/25 magnesium) tablet naltrexone 50 mg tablet 50 mg PO DAILY #30 tabs 08/20/25 thiamine mononitrate (vit B1) 100 100 mg PO DAILY #30 tabs 08/20/25 mg tablet Allergies Allergy/AdvReac Type Severity Reaction Status Date / Time No Known Allergies (No Known Allergy Verified 08/21/25 19:46 Allergies*) PMFSH Past Medical History Medical History Pancytopenia Cirrhosis Hypomagnesemia Aspiration pneumonia Alcohol use disorder CHF (congestive heart failure) Alcohol abuse Acute hypoxemic respiratory failure Anemia Pneumonia Alcohol withdrawal syndrome Alcohol abuse Thrombocytopenia Esophageal varices Acute on chronic anemia Alcoholic liver disease Thrombocytopenia Malnutrition CHF (congestive heart failure) Anemia Thrombocytopenia Acute on chronic anemia CHF (congestive heart failure) Anemia Alcohol abuse Surgical History No history of previous surgery Social History Social History Household Members: Other Household Members Other:: homeless Housing: Homeless Housing Other:: homeless Do you presently have visiting nurse or other home services: No Alcohol intake: current Alcohol intake frequency: 3 or more drinks per day Alcohol type: beer and hard liquor Comment: pt refuse to have staff remain in [place] Patient Tobacco Use Status: Former Tobacco user Tobacco use type: Cigarette Smoked in Last 30 Days: Yes Second Hand Smoke Exposure: No Advance Directives: Yes Advance Directives on File: Yes Advance Directives Date on File: 07/13/23 service: No Physical Exam ED Vital Signs: Vital Signs - 24 hr 08/21/25 20:02 08/21/25 22:57 08/22/25 00:02 Temperature 97.3 F 97.8 F Pulse Rate 69 72 Respiratory Rate 16 18 Blood Pressure 99/55 L 95/55 L 91/56 L Pulse Oximetry 92 93 Oxygen Delivery Method Nasal Cannula Nasal Cannula Oxygen Flow Rate 2 2 08/22/25 01:24 08/22/25 02:01 08/22/25 04:33 Temperature 98.2 F 98.4 F Pulse Rate 91 73 Respiratory Rate 18 16 Blood Pressure 83/53 L 81/51 L 92/44 L Pulse Oximetry 94 94 94 Oxygen Delivery Method Nasal Cannula Nasal Cannula Room Air Aerosol Mask Oxygen Flow Rate 2 2 2 BMI result Body Mass Index 18.9 Medications Administered Discontinued Medications Generic Name Dose Route Start Last Admin Trade Name Freq PRN Reason Stop Dose Admin Furosemide 40 mg 08/21/25 22:49 08/21/25 22:57 Furosemide 40 Mg/4 Ml Vial IVPUSH 08/21/25 22:50 40 mg ONCE ONE Administration Protocol Medical Decision Making Medical Decision Making MDM Narrative: 55-year-old male with a history of alcohol use disorder, end-stage liver cirrhosis, chronic thrombocytopenia, chronic dependent edema, recurrent pneumonia, who presents being found intoxicated in public. Patient complains of bilateral leg pain he has not been taking his Lasix as directed. Problem: Alcohol use disorder, housing and security, cirrhosis, dependent edema History: Per patient which is very limited primarily via EMS I have considered the following differential diagnoses: Alcohol intoxication, edema, pneumonia, heart failure exacerbation Plan: The patient is intoxicated, we will screen basic labs, viral panel ethanol obtaining a chest x-ray, we will diurese the patient. I have independently reviewed the following tests: Labs:Stable pancytopenia, no electrolyte abnormality, ethanol 266 Chest x-ray: Findings: Hypoventilatory exam. Prominent perihilar markings. No pleural effusion or pneumothorax. Mild cardiomegaly. No acute fracture. IMPRESSION: 1. Cardiomegaly with pulmonary vascular congestion. Differential Diagnosis Differential Diagnoses: The differential diagnosis associated with the presentation includes See medical decision-making Admission/Observation Consideration of admission/observation: Escalation of care including admission/observation considered Not applicable Lab Data MDM Lab Attestation statement: I reviewed the patient's lab results. 08/21/25 20:16 08/21/25 20:16 Labs: Lab Results 08/21/25 08/21/25 Range/Units 20:16 23:09 WBC 3.9 L (4.8-10.8) X10*3/uL RBC 3.53 L (4.60-5.80) X10*6/uL Hgb 10.7 L (14.0-18.0) g/dl Hct 34.3 L (42.0-52.0) % MCV 97.2 (80.0-98.0) fL MCH 30.3 (27.0-33.0) pg MCHC 31.2 (31.0-36.0) g/dl RDW 17.7 H (11.0-16.0) % Plt Count 48 L (160-400) X10*3/uL MPV 13.4 H (9.4-12.4) fL Immature Gran % (Auto) 1.0 H (0.0-0.4) % Neut % (Auto) 71.6 (45-73) % Lymph % (Auto) 15.1 L (20-40) % [place] % (Auto) 9.5 (2-11) % Eos % (Auto) 1.5 (0-4) % Baso % (Auto) 1.3 (0-2) % Lymph # (Auto) 0.6 L (1.2-4.9) X10*3/uL [place] # (Auto) 0.4 (0.1-1.2) X10*3/uL Eos # (Auto) 0.1 (0.0-0.4) X10*3/uL Baso # (Auto) 0.1 (0.0-0.2) X10*3/uL Abs Immat Gran (auto) 0.04 H (0.00-0.03) X10*3/uL Absolute Neuts (auto) 2.8 (2.0-8.3) x10*3/uL Absolute Nucleated RBC 0.000 (0.0-0.012) X10*3/uL Nucleated RBC % (auto) 0.0 (0.0-0.2) /100WBC Smear Tech's Comments VERIFIED Sodium 134 L (135-145) mmol/L Potassium 5.1 (3.3-5.1) mmol/L Chloride 107 (96-108) mmol/L Carbon Dioxide 17 L (22-29) mmol/L Anion Gap 15 (12-20) BUN 25 H (9-16) mg/dL Creatinine 1.14 (0.5-1.4) mg/dL Estim Creat Clear Calc 52.7 Estimated GFR > 60 Random Glucose 106 (60-115) mg/dL Calcium 9.4 (8.4-10.2) mg/dL Magnesium 2.3 (1.6-2.6) mg/dL Total Bilirubin 0.7 (0.0-1.0) mg/dL AST 46 H (5-37) U/L ALT 13 (0-40) U/L Alkaline Phosphatase 173 H (39-117) U/L Total Protein 9.1 H (6.5-8.0) g/dL Albumin 3.8 (3.5-5.0) g/dL Triglycerides 62 (<150) mg/dL Cholesterol 118 (<200) mg/dL LDL Cholesterol, Calc 77 (<100) mg/dL HDL Cholesterol 29 L (>40) mg/dL Urine Color Dark Yellow Urine Appearance Clear Urine pH 5.0 (5.0-9.0) Ur Specific [place] 1.015 (1.005-1.025) Urine Protein Negative (Neg-Trace) mg/dL Urine Glucose (UA) Negative (Negative) mg/dL Urine Ketones Negative (Negative) mg/dL Urine Blood Negative (Negative) Urine Nitrite Negative (Negative) Ur Leukocyte Esterase Negative (Negative) Ethyl Alcohol 266 mg/dL Radiology Impression Discussion of test interpretation with radiology: I have reviewed the radiologist's reading. Discharge Plan Discharge Clinical Impression: Alcohol intoxication, Pulmonary congestion Patient Disposition: Home, Self-Care Instructions: Abuse of Alcohol (ED), Alcohol Intoxication (ED) Additional Instructions: You were monitored in the emergency room for your safety until you were clinically sober. You were given your Lasix, you need to take the Lasix as directed. Follow up with your primary care provider as needed. Prescriptions: No Action naltrexone 50 mg Tablet 50 mg PO DAILY Qty: 30 0RF magnesium oxide 400 mg (241.3 mg magnesium) Tablet 400 mg PO DAILY Qty: 30 0RF folic acid 1 mg Tablet 1 mg PO DAILY Qty: 30 0RF amoxicillin-pot clavulanate 875-125 mg Tablet 1 tab PO BID Qty: 6 0RF thiamine mononitrate (vit B1) 100 mg Tablet 100 mg PO DAILY Qty: 30 0RF albuterol sulfate [Ventolin HFA] 90 mcg/actuation HFA aerosol inhaler 2 puff inhalation Q4-6H PRN (Reason: shortness of breath or wheezing) Qty: 8.5 0RF Print Language: Ug[place]
[2025-08-22 06:23] VITALS: BP 108/62; PULSE 72; RESP 16; TEMP 36.6; O2SAT 93
== END 2025-08-22 06:25 | disposition home or self-care (01) ==
PROVIDERS: Emergency Provider Emergency Medicine
DX: F10.129 Alcohol abuse with intoxication, unspecified (principal); Y90.8 Blood alcohol level of 240 mg/100 ml or more; R09.89 Other specified symptoms and signs involving the circulatory and respiratory systems; K74.60 Unspecified cirrhosis of liver; D69.6 Thrombocytopenia, unspecified; R60.9 Edema, unspecified; Z59.02 Unsheltered homelessness
CPT/HCPCS: 36415; 71045; 80053; 80061; 80307; 81003; 83735; 85025; 96374; 99284; J1938

== ENCOUNTER → 2025-08-21 20:17 | Outpatient (BNV) | payer MEDICAID, SELFPAY | PROVIDERS: Emergency Provider Emergency Medicine; Visit Provider Student in an Organized Health Care Education/Training Program | DX: I51.7 Cardiomegaly (principal); J81.1 Chronic pulmonary edema | CPT/HCPCS: 71045 ==

== ENCOUNTER 2025-08-30 20:37 | Inpatient (IN) | payer MEDICAID, SELFPAY ==
--- NOTE | ~2025-08-30 | XR_ITS ---
CLINICAL HISTORY: dyspnea, hypoxia 2 view chest x-ray Comparison: CR - XR CHEST 1V - 08/21/25 21:19 EDT Findings: There is pulmonary vascular congestion. There is no germaine pulmonary edema. There is left basilar atelectasis/pneumonia. Normal size heart. No acute fracture. IMPRESSION: 1. There is pulmonary vascular congestion. 2. There is left basilar atelectasis/pneumonia. This document has been electronically signed by: Christian Beard MD on 08/31/2025 00:18:07
--- NOTE | ~2025-08-30 | CT_ITS ---
CLINICAL HISTORY: hypoxia CT angiography chest with contrast. 3D Postprocessing. Comparison: CT/REG/SR - CT ANGIO CHEST PE PROTOCOL - 07/13/25 03:56 EDT Findings: The heart is normal in size. There is no pericardial effusion. There is a wall thickening of the distal esophagus. The thoracic aorta is normal caliber. Evaluation of the segmental and subsegmental pulmonary arteries is limited due to contrast bolus timing. No large main pulmonary embolus is identified. The thyroid gland appears normal. There is no thoracic adenopathy. Left lower lobe and lingular ground-glass opacities are present. Mild dependent subsegmental atelectasis is seen in the right lower lobe. There is a trace left pleural effusion. The left lung apex is excluded from the [id number]. Limited examination of the upper abdomen demonstrates enlarged gastrohepatic lymph node measuring 1.7 cm in short axis, unchanged. There is mild nonspecific thickening of the medial limb of the left adrenal gland. Remote severe T8 compression fracture is similar to prior exam. Remote sternal fracture is also noted. No acute osseous abnormality is identified. IMPRESSION: 1. Evaluation of the segmental and subsegmental pulmonary arteries is limited due to contrast bolus timing. No large main pulmonary embolus is identified. 2. Ground-glass opacities in the left lower lobe and lingula consistent with an infectious/inflammatory process. 3. Distal esophageal wall thickening. Recommend correlation with endoscopy. 4. Enlarged gastrohepatic lymph node, similar to prior exam. This document has been electronically signed by: Serena Wilson on 08/31/2025 05:28:35
[2025-08-30 21:03] VITALS: BP 100/60; BP 106/57; PULSE 76; PULSE 84; RESP 18; TEMP 37.1; O2SAT 68; O2SAT 92; BMI 21.7
--- OUTSIDE RECORDS SUMMARY | 2025-08-30 21:20 | XMS_ITS | Encounter Summary ---
Author Organization [facility] Address [address] [place] [phone] Phone Care Team Providers Care Band Instrument Maker Name Role Phone Elbert Hayward MD Primary Care Provider [facility], [facility] Primary Care Provider Pcp, Unknown Unavailable Unavailable Encounter Details Date Type Department Care Team (Late st Contact Info) Description 10/06/2023 Procedure Pass [facility], Ct Scan - [address] [address] Social History Tobacco Use Types Packs/Day Years [...] on filedocumented in this encounter Care Teams Band Instrument Maker Relationship Specialty Start Date End Date Elbert Hayward MD PCP - General 05/13/14 10/06/23 [facility], MD [address] [place] [address] PCP - General 10/07/23 Pcp, Unknown 10/07/23 documented as of this encounter Additional Source Comments The information contained in this document represents components of the legal health record. It is not the complete legal health record.[facility]
--- OUTSIDE RECORDS SUMMARY | 2025-08-30 21:20 | XMS_ITS | Encounter Summary ---
Author Organization [facility] Address [address] [place] [phone] Phone Care Team Providers Care Gas Line Servicer Name Role Phone [facility], [facility] Primary Care Provider Pcp, Unknown Unavailable Unavailable Encounter Details Date Type Department Care Team (Late st Contact Info) Description 02/02/2024 Procedure Pass [facility] Admitting Dept Virtual Department [address] [place] [address] Social History Tobacco Use Types Packs/Day Years [...] on filedocumented in this encounter Care Teams Gas Line Servicer Relationship Specialty Start Date End Date [facility] [address] [place] [id number] PCP - General 10/07/23 Pcp, Unknown 10/07/23 documented as of this encounter Additional Source Comments The information contained in this document represents components of the legal health record. It is not the complete legal health record.[facility]
--- OUTSIDE RECORDS SUMMARY | 2025-08-30 21:20 | XMS_ITS | Clinical Summary ---
Author Organization [employer] Address [address] [place] [address] 7 [place] [address] Care Team Providers Care Medical Collections Name Role Phone Unavailable Primary Care Provider [...] Patient presented with altered mental status from [facility] where he appeared more lethargic [...] Encounters Date Type Department Care Team Description 08/21/2025 Orders Only GENERIC EXTERNAL DATA DEPARTMENT Provider, Generic External Data 08/14/2025 Orders Only [facility] External Provider, [facility] 08/04/2025 Patient Outreach [facility] [address] [place] [address] Conor Vidal Care Coordination ([facility]/Liz Vidal, TC #6 outreach_closed ) 07/21/2025 Patient Outreach [facility] [address] [place] [address] Conor Vidal 07/08/2025 Patient Outreach [facility] [address] [place] [address] Missy Milner RN 07/07/2025 Telephone [facility] [address] [place] [address] Mihaela Zhong, LAURA Needs [employer] Appt 07/06/2025 Orders Only GENERIC EXTERNAL DATA DEPARTMENT Provider, Generic External Data 07/02/2025 Orders Only [facility] External Provider, [facility] 07/01/2025 Patient Outreach [facility] [address] [place] [address] Missy Milner, RN Care Coordination ([facility]/AMY Vidal, TC #5 initial outreach attempt_lvm) 06/19/2025 Results Follow-Up [facility] Information Management [address] [place] [address] Provider, Generic External Data XR Chest 2 Views 06/19/2025 Results Follow-Up [facility] Information Management [address] [place] [address] External Provider, [facility] CT Chest w/ Contrast 06/19/2025 Orders Only [facility] External Provider, [facility] 06/18/2025 Orders Only GENERIC EXTERNAL DATA DEPARTMENT Provider, Generic External Data 06/11/2025 Travel 06/09/2025 Results Follow-Up [facility] Information Management [address] [place] [address] Provider, Generic External Data XR Chest 1 View 06/08/2025 Orders Only GENERIC EXTERNAL DATA DEPARTMENT Provider, Generic External Data 06/05/2025 Orders Only GENERIC EXTERNAL DATA DEPARTMENT Provider, Generic External Data 05/30/2025 Patient Outreach [facility] [address] [place] [address] Missy Milner, LAURA Care Coordination ([facility]3/[facility] Conor Vidal, TC #4 Initial outreach attempt_lvm ) from Last 3 Months Immunizations Immunization Administration Dates Next Due Rdio SARS-CoV-2 Vaccination 04/28/2021 Pfizer Covid-19 Vaccine 12+ [...] FIT 1970 FOBT 1970 HIV Screening 1970 SDOH Screening 1970 Sigmoidoscopy 1970 Disability [...] 04/28/2021, 04/28/2021 Influenza Vaccine (#1) 2025 01/05/2025 Lipid Panel 08/21/2030 08/21/2025 DTaP/Tdap/Td Vaccines (2 - T d or [...] Procedure Name Priority Date/Time Associated Diagnosis Comments URINALYSIS WITH REFLEX MICROSCOPIC Routine 08/21/2025 11:09 PM EDT XR CHEST 1 VIEW Routine 08/21/2025 9:58 PM EDT SLIDE REVIEW Routine 08/21/2025 8:16 PM EDT CBC WITH AUTO DIFFERENTIAL Routine 08/21/2025 8:16 PM EDT ETHANOL Routine 08/21/2025 8:16 PM EDT LIPID PANEL, STANDARD Routine 08/21/2025 8:16 PM EDT MAGNESIUM Routine 08/21/2025 8:16 PM EDT COMPREHENSIVE METABOLIC PANEL Routine 08/21/2025 8:16 PM EDT XR FOOT 3+ VIEWS RIGHT Routine 8:10 AM EDT SLIDE REVIEW Routine 08/14/2025 5:12 PM EDT CBC WITH AUTO DIFFERENTIAL Routine 08/14/2025 5:12 PM EDT LIPASE Routine 08/14/2025 5:12 PM EDT COMPREHENSIVE METABOLIC PANEL Routine 08/14/2025 5:12 PM EDT NT-PROBNP Routine 08/14/2025 5:12 PM EDT ETHANOL Routine 08/14/2025 5:12 PM EDT XR CHEST 1 VIEW Routine 08/14/2025 4:36 PM EDT XR CHEST 1 VIEW Routine 07/06/2025 7:16 [...] AUTO DIFFERENTIAL Routine 06/05/2025 11:54 AM EDT from Last 3 Months Results * Urinalysis w/reflex microscopic (08/21/2025 11:09 PM EDT) Color Urine Dark Yellow [facility] Appearance Urine Clear [facility] PH 5.0 5.0 - 9.0 [facility] Glucose Urine UA Negative Negative mg/dL [facility] Urine Blood Negative Negative [facility] Specific [place] - Urine 1.015 1.005 - 1.025 [facility] Urine Protein Negative Neg-Trace mg/dL [facility] Urine Ketones Negative Negative mg/dL [facility] Nitrite Urine Negative Negative [facility] Leukocyte Esterase Urine Negative Negative [facility] 08/21/2025 11:0 9 PM EDT 08/21/2025 11:13 PM EDT Narrative [facility] - 08/21/2025 11:16 PM EDT [id number], Clean Catch us Generic External Data Provider LAB URINE ORDERAB LES Final Result Performing Organization Address City/State/[facility] Co de Phone Number [facility] [address] [place] [phone] * XR Chest 1 View (08/21/2025 9:58 PM EDT) Only the most recent of6 resultswithin the time period is included. Anatomical Region Laterality Modality Chest Radiographic Lamar ging 08/21/2025 9:58 PM EDT Narrative 08/21/2025 10:00 PM EDT [address] [address] XRay Report Signed Patient: Charbel Delgado MR#: [id number] : 1970 Acct:[id number] Age/Sex: 55 / M ADM Date: 08/21/25 Loc: HO.ED Attending Dr: Ordering Physician: Trudy Brannon Date of Service: 08/21/25 Procedure(s): XR chest 1V Accession Number(s): [id number] cc: Trudy Brannon; [facility] Reason for Exam: sob CLINICAL HISTORY: sob 1 view chest x-ray Comparison: CR/SR - XR CHEST 1 VIEW - 08/14/2025 04:48 PM EDT Findings: Hypoventilatory exam. Prominent perihilar markings. No pleural effusion or pneumothorax. Mild cardiomegaly. No acute fracture. IMPRESSION: 1. Cardiomegaly with pulmonary vascular congestion. This document has been electronically signed by: Makayla Austin MD on 08/21/2025 21:58:35 Dictated By: Makayla Austin MD Signed By: <Electronically signed by Makayla Austin MD in OV> 08/21/252158 DD/ 57 TD/TT: 08/21/252157 Explosive Technician: Procedure Note Donotuseinterpreter, Image - 08/21/2025 [place] [address] XRay Report Signed Patient: Isaias Delgado#: [id number] : 1970Acct:[id number] Age/Sex: 55 / MADM Date: 08/21/25 Loc: .ED Attending Dr: Ordering Physician: Trudy Brannon Date of Service: 08/21/25 Procedure(s): XR chest 1V Accession Number(s): [id number] cc: Trudy Brannon; [facility] Reason for Exam: sob CLINICAL HISTORY: sob 1 view chest x-ray Comparison: CR/SR - XR CHEST 1 VIEW - 08/14/2025 04:48 PM EDT Findings: Hypoventilatory exam. Prominent perihilar markings. No pleural effusion or pneumothorax. Mild cardiomegaly. No acute fracture. IMPRESSION: 1. Cardiomegaly with pulmonary vascular congestion. This document has been electronically signed by: Makayla Austin MD on 08/21/2025 21:58:35 Dictated By: Makayla Austin MD Signed By: <Electronically signed by Makayla Austin MD in OV> 08/21/252158 DD/ 57 TD/TT: 08/21/252157 Explosive Technician: [facility] External Provider IMG XR PROCEDURES Edited Result - Final * Slide Review (08/21/2025 8:16 PM EDT) Only the most recent of3 resultswithin the time period is included. Slide Review VERIFIED [facility] 08/21/2025 8:16 PM EDT 08/21/2025 8:22 PM EDT Generic External Data Provider LAB BLOOD ORDERAB LES Final Result Performing Organization Address [facility] Co de Phone Number [facility] [address] [place] [address] [phone] * Ethanol (08/21/2025 8:16 PM EDT) Only the most recent of6 resultswithin the time period is included. ETHANOL (MG/DL) IN SER/PLAS 266 mg/dL [facility] Comment:Serum/plasma ethanol results are to be used formedical/treatment purposes only. 08/21/2025 8:16 PM EDT 08/21/2025 8:22 PM EDT Generic External Data Provider LAB BLOOD ORDERAB LES Final Result Performing Organization Address City/[facility]/ZIP Co de Phone Number [facility] [address] [place] [phone] * (ABNORMAL) CBC auto differential (08/21/2025 8:16 PM EDT) Only the most recent of6 resultswithin the time period is included. White Blood Count 3.9(L) 4.8 - 10.8 X10*3/uL [facility] Red Blood Count 3.53(L) 4.60 - 5.80 X10*6/uL [facility] Hemoglobin 10.7(L) 14.0 - 18.0 g/dl [facility] Hematocrit 34.3(L) 42.0 - 52.0 % [facility] Mean Corpuscular Volume 97.2 80.0 - 98.0 fL [facility] Mean Corpuscular Hemoglobin 30.3 27.0 - 33.0 pg [facility] Mean Corpuscular HGB Conc 31.2 31.0 - 36.0 g/dl [facility] Red Cell Distribution Width 17.7(H) 11.0 - 16.0 % [facility] Platelet Count 48(L) 160 - 400 X10*3/uL [facility] Comment:Confirmed by smear. Mean Platelet Volume 13.4(H) 9.4 - 12.4 fL [facility] Neutrophils Percent Auto 71.6 45 - 73 % [facility] Imm Gran Pct Auto 1.0(H) 0.0 - 0.4 % [facility] Lymphocytes Percent Auto 15.1(L) 20 - 40 % [facility] Monocytes Percent Auto 9.5 2 - 11 % [facility] Eosinophils Percent Auto 1.5 0 - 4 % [facility] Basophils Percent Auto 1.3 0 - 2 % [facility] NRBC Pct Auto 0.0 0.0 - 0.2 /100WBC [facility] Neutrophils Absolute Auto 2.8 2.0 - 8.3 x10*3/uL [facility] Imm Gran Abs Auto 0.04(H) 0.00 - 0.03 X10*3/uL [facility] Lymphocytes Absolute Auto 0.6(L) 1.2 - 4.9 X10*3/uL [facility] Monocytes Absolute Auto 0.4 0.1 - 1.2 X10*3/uL [facility] Eosinophils Absolute Auto 0.1 0.0 - 0.4 X10*3/uL [facility] Basophils Absolute Auto 0.1 0.0 - 0.2 X10*3/uL [facility] NRBC Abs Auto 0.000 0.0 - 0.012 X10*3/uL [facility] 08/21/2025 8:16 PM EDT 08/21/2025 8:22 PM EDT us Generic External Data Provider LAB BLOOD ORDERAB LES Edited Result - Final Performing Organization Address [facility]/ZIP Co de Phone Number [facility] [address] [place] [phone] * Magnesium (08/21/2025 8:16 PM EDT) Only the most recent of4 resultswithin the time period is included. Magnesium 2.3 1.6 - 2.6 mg/dL [facility] 08/21/2025 8:16 PM EDT 08/21/2025 8:22 PM EDT us Generic External Data Provider LAB BLOOD ORDERAB LES Final Result Performing Organization Address City/[facility]/ZIP Co de Phone Number [facility] [address] [place] [phone] * (ABNORMAL) Lipid Panel, Standard (08/21/2025 8:16 PM EDT) Triglycerides 62 <150 mg/dL [facility] Comment:Desirable Triglyceri de: less than 150 mg/dLBorderline High Triglyceride 150-199 mg/dLHigh Triglyceride: 200-499 mg/dLVery High Triglyceride: greater than or equal to 5OO mg/dL Cholesterol 118 <200 mg/dL [facility] Comment:Desirable Cholestero l: less than 200 mg/dLBorderline High Cholesterol: 200-239 mg/dLHigh Cholesterol: greater than 239 mg/dL LDL Cholesterol Calculated 77 <100 mg/dL [facility] Comment:Desirable LDL: less than 100 mg/dLNear Optimal/Above Optimal LDL: 110- 129 mg/dLBorderline High LDL: 130-159 mg/dLHigh LDL: 160-189 mg/dLVery High LDL: greater than or equal to 190 mg/dL HDL Cholesterol 29(L) >40 mg/dL [facility] Comment:Desirable HDL: great er than 40 mg/dL Note: This HDL assay may give artificially low results in patients with liver disease. 08/21/2025 8:16 PM EDT 08/21/2025 8:22 PM EDT us Generic External Data Provider LAB BLOOD ORDERAB LES Final Result [facility] [address] [place] [phone] * (ABNORMAL) Comprehensive Metabolic Panel (08/21/2025 8:16 PM EDT) Only the most recent of4 resultswithin the time period is included. Sodium 134(L) 135 - 145 mmol/L [facility] Potassium 5.1 3.3 - 5.1 mmol/L [facility] Chloride 107 96 - 108 mmol/L [facility] Carbon Dioxide 17(L) 22 - 29 mmol/L [facility] Anion Gap 15 12 - 20 [facility] Urea Nitrogen (BUN) 25(H) 9 - 16 mg/dL [facility] Creatinine, Serum 1.14 0.5 - 1.4 mg/dL [facility] Creatinine Clr Calc Pharmacy 52.7 [facility] Comment:eGFR (calculated fro m the MDRD study equation) and eCrCl(calculated from the Cockcroft-Gault equation) are based ondifferent parameters and may not yield comparable results.If eCrCl result is absurd, please check patient'sheight/weight. Estimated Glomerular Filt Rate >60 [facility] Comment:Chronic Kidney Disea se: Estimated GFR < 60 mL/min/1.25e5Tkjgxk Kidney Disease: Estimated GFR < 15 mL/min/1.73m2 Glucose 106 60 - 115 mg/dL [facility] Calcium 9.4 8.4 - 10.2 mg/dL [facility] Bilirubin, Total 0.7 0.0 - 1.0 mg/dL [facility] Aspartate Amino Transferase 46(H) 5 - 37 U/L [facility] Alanine Aminotransferase 13 0 - 40 U/L [facility] Total Protein 9.1(H) 6.5 - 8.0 g/dL [facility] Albumin Level 3.8 3.5 - 5.0 g/dL [facility] Alkaline Phosphatase 173(H) 39 - 117 U/L [facility] 08/21/2025 8:16 PM EDT 08/21/2025 8:22 PM EDT us Generic External Data Provider LAB BLOOD ORDERAB LES Final Result Performing Organization Address City/State/[facility] Co de Phone Number [facility] [address] [place] [phone] * XR Foot 3+ Views Right (08/15/2025 8:10 AM EDT) Anatomical Region Laterality Modality Lower Extremities, Foot Right Radiogra phic Imaging 08/15/2025 8:10 AM EDT Narrative 08/15/2025 8:34 AM EDT [address] [address] XRay Report Signed Patient: Charbel Delgado MR#: [id number] : 1970 Acct:[id number] Age/Sex: 55 / M ADM Date: 08/15/25 Loc: [place] [address]: Yazmin WALLACE Ordering Physician: Yazmin Shafer Date of Service: 08/15/25 Procedure(s): XR foot RT min 3V Accession Number(s): [id number] cc: Yazmin Shafer; [facility] Reason for Exam: right foot pain EXAMINATION: XR FOOT 3 OR MORE VIEWS RIGHT HISTORY: right foot pain COMPARISON: Comparison is made with the prior examination dated 11/27/2024. FINDINGS: Three views of the right foot are submitted. The bones are osteopenic. There is no fracture or dislocation. There is smooth periosteal reaction along the 1st metatarsal shaft. There is mild to moderate hallux valgus deformity of the great toe. There is degenerative change of the DIP and PIP joints as well as narrowing of the 1st MCP joint with a small erosion of the 1st metatarsal head. There are vascular calcifications. XR/XR foot RT min 3V IMPRESSION: Osteopenia. Degenerative changes as described. Mild smooth periosteal reaction along the 1st metatarsal shaft of uncertain variance. No fracture is seen. Electronically signed by: Dony Nunn MD 08/15/2025 08:31 AM EDT RP Dictated By: Dony Nunn MD Signed By: <Electronically signed by Dony Nunn MD in OV> 08/15/25830 DD/ 9 TD/TT: 08/15/25 08 Explosive Technician: Procedure Note Donotuseinterpreter, Image - 08/15/[address] [address] XRay Report Signed Patient: Isaias Delgado#: [id number] : 1970Acct:[id number] Age/Sex: 55 / MADM Date: 08/15/25 Loc: [facility]: Yazmin WALLACE Ordering Physician: Yazmin Shafer Date of Service: 08/15/25 Procedure(s): XR foot RT min 3V Accession Number(s): [id number] cc: Yazmin Shafer; [facility] Reason for Exam: right foot pain EXAMINATION: XR FOOT 3 OR MORE VIEWS RIGHT HISTORY: right foot pain COMPARISON: Comparison is made with the prior examination dated 11/27/2024. FINDINGS: Three views of the right foot are submitted. The bones are osteopenic. There is no fracture or dislocation. There is smooth periosteal reaction along the 1st metatarsal shaft. There is mild to moderate hallux valgus deformity of the great toe. There is degenerative change of the DIP and PIP joints as well as narrowing of the 1st MCP joint with a small erosion of the 1st metatarsal head. There are vascular calcifications. XR/XR foot RT min 3V IMPRESSION: Osteopenia. Degenerative changes as described. Mild smooth periosteal reaction along the 1st metatarsal shaft of uncertain variance. No fracture is seen. Electronically signed by: Dony Nunn MD 08/15/2025 08:31 AM EDT RP Dictated By: Dony Nunn MD Signed By: <Electronically signed by Dony Nunn MD in OV> 08/15/25830 DD/ 9 TD/TT: 08/15/25819 Explosive Technician: us [facility] External Provider IMG XR PROCEDURES Final Result * NT-proBNP (08/14/2025 5:12 PM EDT) NT-proBNP 108.4 <300 pg/mL [facility] Comment:Reference Range:Age Group (years) NT-proBNP (pg/ml) InterpretationAll <300 Negative: HF unlikelyFor patients presenting to the ED with clinical suspicion ofnew onset or worsening HF, see below:18 to <50 >299.9 to <450.0 Grayzone: [id number] to 75 >299.9 to <900.0 other causes of>75 >299.9 to <1800.0 NT-proBNP [id number] to <50 >449.9 Positive: HF [id number] >899.9>75 >1799.9Note: Elevated NT-proBNP levels should be interpreted inthe context of other clinical information. 08/14/2025 5:12 PM EDT 08/14/2025 5:16 PM EDT Generic External Data Provider LAB BLOOD ORDERAB LES Final Result Performing Organization Address City/[facility]/ZIP Co de Phone Number [facility] [address] [place] [phone] * Lipase (08/14/2025 5:12 PM EDT) Lipase 21 8 - 78 U/L [facility] 08/14/2025 5:12 PM EDT 08/14/2025 5:16 PM EDT Generic External Data Provider LAB BLOOD ORDERAB LES Final Result Performing Organization Address [facility]/ZIP Co de Phone Number [facility] [address] [place] [phone] * (ABNORMAL) Drug Monitoring, Panel 1, Screen, Urine (07/06/2025 6:08 PM EDT) Only the most recent of2 resultswithin the time period is included. Opiate Screen Urine Not Detected Not Detect [facility] Comment:Opiate cut-off is 30 0 ng/mL.Positive results are unconfirmed and should not be used fornon-medical purposes. Barbiturates, Urine POSITIVE(A) Not Detect [facility] Comment:Barbiturate cut-off is 200 ng/mL.Positive results are unconfirmed and should not be used fornon-medical purposes. Phencyclidine Screen Urine Not Detected Not Detect [facility] Comment:Phencyclidine cut-of f is 25 ng/mL.Positive results are unconfirmed and should not be used fornon-medical purposes. Amphetamine Screen Urine Not Detected Not Detect [facility] Comment:Amphetamine cut-off is 1000 ng/mL.Positive results are unconfirmed and should not be used fornon-medical purposes. Benzodiazepines Screen Urine Not Detected Not Detect [facility] Comment:Benzodiazepine cut-o ff is 200 ng/mL.Positive results are unconfirmed and should not be used fornon-medical purposes. Cocaine Screen Urine Not Detected Not Detect [facility] Comment:Cocaine cut-off is 3 00 ng/mL.Positive results are unconfirmed and should not be used fornon-medical purposes. Cannabinoid Screen Urine Not Detected Not Detect [facility] Comment:Cannabinoid cut-off is 50 ng/mL.Positive results are unconfirmed and should not be used fornon-medical purposes. Methadone Screen, Urine Not Detected Not Detect ng/mL [facility] Comment:Methadone cut-off is 300 ng/mL.Positive results are unconfirmed and should not be used fornon-medical purposes. FENTANYL URINE Not Detected Not Detect [facility] Comment:Fentanyl cut-off is 1 ng/mL.Positive results are unconfirmed and should not be used fornon-medical purposes. Oxycodone Urine Screen Not Detected Not Detect ng/mL [facility] Comment:Oxycodone cut-off is 100 ng/mL.Positive results are unconfirmed and should not be used fornon-medical purposes. Buprenorphine Screen Not Detected Not Detect ng/mL [facility] Comment:Buprenorphine cut-of f is 5 ng/mL.Positive results are unconfirmed and should not be used fornon-medical purposes. 07/06/2025 6:08 PM EDT 07/06/2025 6:11 PM EDT Generic External Data Provider LAB URINE ORDERAB LES Final Result Performing Organization Address [facility] Co de Phone Number [facility] [address] [place] [phone] * High Sensitivity Troponin I (07/06/2025 5:58 PM EDT) Only the most recent of4 resultswithin the time period is included. Pathologist [facility] TROPONIN I HIGH SENSITIVITY <2.7 <3.5 - 35.0 ng/L [facility] Comment:The [place]olly high sens itivity Troponin-I results should beused in conjunction with other diagnostic information suchas ECG, clinical observations and information, and patientsymptoms to aid in the diagnosis of [place]. 07/06/2025 5:58 PM EDT 07/06/2025 6:06 PM EDT Generic External Data Provider LAB BLOOD ORDERAB LES Final Result Performing Organization Address [facility] Co de Phone Number [facility] [address] [place] [phone] * B Type Natriuretic Peptide (BNP) (07/06/2025 5:58 PM EDT) Only the most recent of4 resultswithin the time period is included. Pathologist [facility] B Type Natriuretic Peptide 100 <100 pg/mL [facility] 07/06/2025 5:58 PM EDT 07/06/2025 6:06 PM EDT us Generic External Data Provider LAB BLOOD ORDERAB LES Final Result [facility] [address] [place] [phone] * CT Chest w/ Contrast (06/19/2025 4:46 AM EDT) Anatomical Region Laterality Modality Body, Chest Computed Tomogra phy 06/19/2025 4:46 AM EDT Narrative 06/19/2025 4:48 AM EDT [address] [address] [address] Scan Report Signed Patient: Charbel Delgado MR#: [id number] : 1970 Acct:[id number] Age/Sex: 55 / M ADM Date: 06/19/25 Loc: [place] [address]: Merecdes Hogan MD Ordering Physician: David Galvez PA-C Date of Service: 06/19/25 Procedure(s): CT chest w IV con Accession Number(s): [id number] cc: [facility]; David Galvez PA-C Report Number: [id number]: Total DLP = 265.00 mGy-cm CLINICAL HISTORY: [...] in OV> 06/19/25446 DD/ 5 TD/TT: 06/19/25445 Explosive Technician: Procedure Note Donotuseinterpreter, Image - 06/19/[address] [place] [address] [address] Scan Report Signed Patient: Isaias Delgado#: [id number] : 1970Acct:[id number] Age/Sex: 55 / MADM Date: 06/19/25 [facility] [address]: Mercedes Hogan MD Ordering Physician: David Galvez PA-C Date of Service: 06/19/25 Procedure(s): CT chest w IV con Accession Number(s): [id number] cc: [facility]; David Galvez PA-C Report Number: [id number]: Total DLP = 265.00 mGy-cm CLINICAL HISTORY: [...] in OV> 06/19/25446 DD/ 5 TD/TT: 06/19/25445 Explosive Technician: [facility] External Provider IMG CT PROCEDURES Edited Result - Final * Lactic Acid (06/18/2025 11:49 PM EDT) Lactic Acid 1.8 0.5 - 2.0 mmol/L [facility] 06/18/2025 11:4 9 PM EDT 06/19/2025 Generic External Data Provider LAB BLOOD ORDERAB LES Final Result [facility] [address] [place] [phone] * XR Chest 2 Views (06/18/2025 11:47 PM EDT) Anatomical Region Laterality Modality Chest Radiographic Lamar ging 06/18/2025 11:4 7 PM EDT Narrative 06/18/2025 11:48 PM EDT [address] [address] XRay Report Signed Patient: Charbel Delgado MR#: [id number] : 1970 Acct:[id number] Age/Sex: 55 / M ADM Date: 06/18/25 Loc: HO.ED Attending Dr: Ordering Physician: David Galvez PA-C Date of Service: 06/18/25 Procedure(s): XR chest 2V Accession Number(s): [id number] cc: [facility]; David Galvez PA-C CLINICAL HISTORY: Hypoxia [...] in OV> 06/18/252347 DD/ 46 TD/TT: 06/18/252346 Explosive Technician: Procedure Note Donotuseinterpreter, Image - 06/19/2025 [place] [address] XRay Report Signed Patient: Isaias Delgado#: [id number] : 1970Acct:[id number] Age/Sex: 55 / MADM Date: 06/18/25 Loc: HO.ED Attending Dr: Ordering Physician: David Galvez PA-C Date of Service: 06/18/25 Procedure(s): XR chest 2V Accession Number(s): [id number] cc: [facility]; David Galvez PA-C CLINICAL HISTORY: Hypoxia [...] in OV> 06/18/252347 DD/ 46 TD/TT: 06/18/252346 Explosive Technician: [facility] External Provider IMG XR PROCEDURES Edited Result - Final * (ABNORMAL) Lactic Acid (06/18/2025 9:19 PM EDT) Lactic Acid 2.4(HH) 0.5 - 2.0 mmol/L [facility] Comment:Critical value for t est(s): LACTA Results called to gildardo back by: PATRICIA Person calling: NGUYENQ Date: 06/18/25Time:2153 06/18/2025 9:19 PM EDT 06/18/2025 9:27 PM EDT Generic External Data Provider LAB BLOOD ORDERAB LES Final Result [facility] [address] [place] [phone] * SARS-CoV-2 RNA, Influenza A/B, and RSV RNA, Ql NAAT (06/08/2025 5:01 PM EDT) Influenza A PCR NEGATIVE Negative [facility] Influenza B PCR NEGATIVE Negative [facility] Resp Syncy Virus RNA Qual PCR NEGATIVE Negative [facility] SARS COV2 PCR NEGATIVE Negative [facility] Comment:All test results mus t [...] use by authorized laboratories.Testing performed on the [employer] GeneXpert utilizingreal-time RT-PCR.All SARS CoV2 and positive influenza A/B results arereported to [facility]. 06/08/2025 5:01 PM EDT 06/08/2025 5:07 PM EDT Generic External Data Provider LAB MICROBIOLOGY - GENERAL ORDERABLES Final Result Performing Organization Address [facility] Co de Phone Number [facility] [address] [place] [phone] * (ABNORMAL) Hepatic Function Panel (06/08/2025 5:01 PM EDT) Only the most recent of2 resultswithin the time period is included. Bilirubin, Total 0.7 0.0 - 1.0 mg/dL [facility] Bilirubin, Direct 0.4 0.0 - 0.5 mg/dL [facility] Aspartate Amino Transferase 66(H) 5 - 37 U/L [facility] Alanine Aminotransferase 15 0 - 40 U/L [facility] Total Protein 7.8 6.5 - 8.0 g/dL [facility] Albumin Level 3.5 3.5 - 5.0 g/dL [facility] Alkaline Phosphatase 133(H) 39 - 117 U/L [facility] 06/08/2025 5:01 PM EDT 06/08/2025 5:05 PM EDT Generic External Data Provider LAB BLOOD ORDERAB LES Final Result Performing Organization Address [facility]/ZIP Co de Phone Number [facility] [address] [place] [phone] * (ABNORMAL) Basic Metabolic Panel (06/08/2025 5:01 PM EDT) Only the most recent of2 resultswithin the time period is included. Sodium 144 135 - 145 mmol/L [facility] Potassium 3.4 3.3 - 5.1 mmol/L [facility] Chloride 114(H) 96 - 108 mmol/L [facility] Carbon Dioxide 20(L) 22 - 29 mmol/L [facility] Anion Gap 13 12 - 20 [facility] Urea Nitrogen (BUN) 9 9 - 16 mg/dL [facility] Creatinine, Serum 0.66 0.5 - 1.4 mg/dL [facility] Creatinine Clr Calc Pharmacy 100.2 [facility] Comment:eGFR (calculated fro m the MDRD study equation) and eCrCl(calculated from the Cockcroft-Gault equation) are based ondifferent parameters and may not yield comparable results.If eCrCl result is absurd, please check patient'sheight/weight. Estimated Glomerular Filt Rate >60 [facility] Comment:Chronic Kidney Disea se: Estimated GFR < 60 mL/min/1.71z4Kyijoj Kidney Disease: Estimated GFR < 15 mL/min/1.73m2 Glucose 92 60 - 115 mg/dL [facility] Calcium 8.2(L) 8.4 - 10.2 mg/dL [facility] 06/08/2025 5:01 PM EDT 06/08/2025 5:05 PM EDT us Generic External Data Provider LAB BLOOD ORDERAB LES Final Result [facility] [address], [place] [phone] * (ABNORMAL) VENOUS BLOOD GAS (06/05/2025 11:59 AM EDT) VBG pH 7.41 7.32 - 7.43 [facility] Comment:METER #: [id number] additional_comment: Cbnievea VBG PCO2 29 mmHg [facility] Comment:METER #: [id number] additional_comment: Cbnievea VBG PO2 109 mmHg [facility] Comment:METER #: [id number] additional_comment: Cbnievea VBG Base Excess -4.5 mmol/L [facility] Comment:METER #: [id number] additional_comment: Cbnievea VBG HCO3 19(L) 22 - 26 mmol/L [facility] Comment:METER #: [id number] additional_comment: Cbnievea O2 Sat, Demetrio 99.0 % [facility] Comment:METER #: [id number] additional_comment: Cbnievea 06/05/2025 11:5 9 AM EDT 06/05/2025 12:03 PM EDT us Generic External Data Provider LAB BLOOD ORDERAB LES Final Result Performing Organization Address [facility]/ZIP Co de Phone Number [facility] [address] [place] [phone] * (ABNORMAL) Creatine Kinase, Total (06/05/2025 11:54 AM EDT) Creatine Kinase Total 34(L) 38 - 174 U/L [facility] 06/05/2025 11:5 4 AM EDT 06/05/2025 11:57 AM EDT Generic External Data Provider LAB BLOOD ORDERAB LES Final Result Performing Organization Address [facility] Co de Phone Number [facility] [address] [place] [phone] from Last 3 Months Insurance [facility] [place] [id number] H[address] PART[place] [facility] [address] [facility] [place] [id number] [facility] [place] [phone]
--- OUTSIDE RECORDS SUMMARY | 2025-08-30 21:20 | XMS_ITS | Encounter Summary ---
Author Organization [facility] Address [address] [place] [address] Phone Care Team Providers Care Garage Worker Name Role Phone [facility], [facility] Primary Care Provider Pcp, Unknown Unavailable Unavailable Encounter Details Date Type Department Care Team (Late st Contact Info) Description 01/04/2024 Transcribe Orders [facility] [address] [place] [phone] Missy Miranda PA [address] [place] [phone] [email or web address] Need for hepatitis C screening test (Primary [...] EST) FERRITIN 168 30 - 400 ug/L [facility] Blood 01/04/2024 9:22 AM EST 01/04/2024 9:53 AM EST Missy WALLACE LAB BLOOD ORDERABLES Fin al Result Performing Organization Address City/[facility] Co de Phone Number [address] [phone] * (ABNORMAL) PT-INR (01/04/2024 9:22 AM EST) [facility] PT 15.9(H) 10.2 - 12.9 sec [facility] INR 1.4(H) 0.9 - 1.1 [facility] Comment:Therapeutic range fo r oral Vitamin K antagonists: 2.0-3.5 Blood 01/04/2024 9:22 AM EST 01/04/2024 9:53 AM EST Missy WALLACE LAB BLOOD ORDERABLES Fin al Result Performing Organization Address City/[facility]/ZIP Co de Phone Number [address] [address] * Iron and iron binding capacity (01/04/2024 9:22 AM EST) IRON 81 45 - 160 ug/dL [facility] IRON BINDING CAPACITY 326 228 - 428 ug/dL [facility] TRANSFERRIN SATURAT. 25 20 - 55 % [facility] Blood 01/04/2024 9:22 AM EST 01/04/2024 9:53 AM EST Missy WALLACE LAB BLOOD ORDERABLES Fin al Result Performing Organization Address [facility] de Phone Number [address] [address] * Lipase (01/04/2024 9:22 AM EST) LIPASE 35 16 - 63 U/L [facility] Blood 01/04/2024 9:22 AM EST 01/04/2024 9:53 AM EST Missy WALLACE LAB BLOOD ORDERABLES Fin al Result Performing Organization Address [facility] de Phone Number [address] [address] * Hepatitis C antibody, qualitative (01/04/2024 9:22 AM EST) HCV NON-REACTIV E NON-REACTI VE [facility] Blood 01/04/2024 9:22 AM EST 01/04/2024 9:53 AM EST Missy WALLACE LAB BLOOD ORDERABLES Fin al Result Performing Organization Address [facility] de Phone Number [address] [address] * Hepatitis B surface antibody (01/04/2024 9:22 AM EST) HBV SURFACE ANTIBODY Negative [facility] Comment: Unvaccinated: Negative Vaccinated: Positive Blood 01/04/2024 9:22 AM EST 01/04/2024 9:53 AM EST Missy WALLACE LAB BLOOD ORDERABLES Fin al Result Performing Organization Address City/[facility]/ZIP Co de Phone Number [address] [address] * Hepatitis B surface antigen (01/04/2024 9:22 AM EST) HBV SURFACE ANTIGEN NON-REACTI VE NON-REACTI VE [facility] Blood 01/04/2024 9:22 AM EST 01/04/2024 9:53 AM EST Missy WALLACE LAB BLOOD ORDERABLES Fin al Result Performing Organization Address [facility] Co de Phone Number [address] [address] * Hepatitis B core antibody, total (01/04/2024 9:22 AM EST) HEP B CORE AB, TOT NON-REACTI VE NON-REACTI VE [facility] Blood 01/04/2024 9:22 AM EST 01/04/2024 9:53 AM EST Missy WALLACE LAB BLOOD ORDERABLES Fin al Result Performing Organization Address [facility] Co de Phone Number [address] [address] * HEPATITIS A ANTIBODY, TOTAL (01/04/2024 9:22 AM EST) HAV TOTAL AB NON-REACTI VE NON-REACTI VE [facility] Blood 01/04/2024 9:2 2 AM EST 01/04/2024 9:53 AM EST Missy WALLACE LAB BLOOD ORDERABLES Fin al Result Performing Organization Address City/[facility] Co de Phone Number [address] [address] * (ABNORMAL) GGT (Gamma glutamyl transferase) (01/04/2024 9:22 AM EST) GGT 54(H) 11 - 51 U/L [facility] Blood 01/04/2024 9:22 AM EST 01/04/2024 9:53 AM EST Missy WALLACE LAB BLOOD ORDERABLES Fin al Result [address] [address] * C-Reactive Protein (01/04/2024 9:22 AM EST) Pathologist [facility] C REACTIVE PROTEIN <3.0 0.0 - 4.0 mg/L [facility] Blood 01/04/2024 9:22 AM EST 01/04/2024 9:53 AM EST Missy WALLACE LAB BLOOD ORDERABLES Fin al Result Performing Organization Address City/[facility] Co de Phone Number [address] [address] * (ABNORMAL) Comprehensive metabolic panel (01/04/2024 9:22 AM EST) Pathologist [facility] SODIUM 137 133 - 146 mmol/L [facility] POTASSIUM 4.5 3.3 - 5.1 mmol/L [facility] CHLORIDE 105 96 - 108 mmol/L [facility] CO2 22 21 - 35 mmol/L [facility] BUN 14 6 - 19 mg/dL [facility] CREATININE 0.80 0.5 - 1.5 mg/dL [facility] GLUCOSE 104(H) 70 - 99 mg/dL [facility] ALBUMIN 4.1 3.9 - 4.8 g/dL [facility] TOTAL PROTEIN 8.1(H) 6.5 - 8.0 g/dL [facility] CALCIUM 10.4(H) 8.4 - 10.3 mg/dL [facility] ALKALINE PHOSPHATASE 118(H) 39 - 117 U/L [facility] TOTAL BILIRUBIN 0.6 0.0 - 1.2 mg/dL [facility] AST 25 0 - 37 U/L [facility] ALT 7 0 - 40 U/L [facility] GLOBULIN 4.0 1 - 4.8 g/dL [facility] EGFR 105 >59 mL/min/1.7 3m2 [facility] Comment:Estimated glomerular filtration rate calculated using the CKD-EPI refit equation. ANION GAP 15 10 - 20 mmol/L [facility] Blood 01/04/2024 9:22 AM EST 01/04/2024 9:53 AM EST us Missy WALLACE LAB BLOOD ORDERABLES Fin al Result Performing Organization Address City/State/[facility] Co de Phone Number [address] [address] * (ABNORMAL) CBC and differential (01/04/2024 9:22 AM EST) WBC 3.17(L) 4.00 - 11.00 K/uL [facility] RBC 3.41(L) 4.23 - 5.82 M/uL [facility] HGB 10.7(L) 13.4 - 17.5 g/dL [facility] HCT 33.8(L) 37.0 - 51.0 % [facility] PLT 64(L) 140 - 430 K/uL [facility] Comment:Consistent with prev ious result. MCV 99.1(H) 78.0 - 97.0 fL [facility] MCH 31.4 25.0 - 33.0 pg [facility] MCHC 31.7(L) 32.0 - 36.0 g/dL [facility] RDW 13.0 11.0 - 15.0 % [facility] MPV 13.2(H) 8.4 - 12.8 fl [facility] DIFF METHOD Auto [facility] NEUTS 57.2 43.0 - 75.0 % [facility] LYMPHS 24.9 18.2 - 47.4 % [facility] MONOS 12.0(H) 4.00 - 11.00 % [facility] EOS 4.7 0.0 - 8.0 % [facility] BASOS 0.9 0.0 - 2.0 % [facility] Granulocytes, immature (%) 0.3 0.0 - 0.9 % [facility] ABSOLUTE NEUTS 1.81 1.80 - 7.70 K/uL [facility] ABSOLUTE LYMPHS 0.79(L) 1.00 - 3.10 K/uL [facility] ABSOLUTE MONOS 0.38 0.20 - 0.80 K/uL [facility] ABSOLUTE EOS 0.15 0.00 - 0.80 K/uL [facility] ABSOLUTE BASOS 0.03 0.00 - 0.09 K/uL [facility] Granulocytes, immature 0.01 0.00 - 0.05 K/uL [facility] Blood 01/04/2024 9:22 AM EST 01/04/2024 9:53 AM EST [facility] BLOOD ORDERABLES Fin al Result [address] [address] * (ABNORMAL) Immunoglobulin A (01/04/2024 9:22 AM EST) Pathologist [facility] IgA 436(H) 70 - 400 mg/dL [facility] Blood 01/04/2024 9:22 AM EST 01/04/2024 9:[address] [facility] Nathaly Miranda [place] LAB BLOOD ORDERABLES Fin al Result [address] [address] * Tissue transglutaminase IgA (01/04/2024 9:22 AM EST) TTG IGA ANTIBODY 1.9 <4.0 (Negative) U/mL [facility]PATH [address] Blood 01/04/2024 9:22 AM EST 01/04/2024 9:53 AM EST Missy WALLACE LAB BLOOD ORDERABLES Fin al Result [facility] [address] [place] [address] * Smooth Muscle Antibody (01/04/2024 9:22 AM EST) SMOOTH MUSCLE AB POSITIVE AT 1:20 [facility] Comment: Performing Physician, Max Jimenez M.D., [id number] Normal: Negative at 1:20 Blood 01/04/2024 9:22 AM EST 01/04/2024 9:53 AM EST Missy WALLACE LAB BLOOD ORDERABLES Fin al Result Performing Organization Address [facility] Co de Phone Number [address] [address] * Ceruloplasmin (01/04/2024 9:22 AM EST) CERULOPLASMIN 31 20 - 60 mg/dL [facility] Blood 01/04/2024 9:22 AM EST 01/04/2024 9:53 AM EST Missy WALLACE LAB BLOOD ORDERABLES Fin al Result Performing Organization Address [facility] Co de Phone Number [address] [address] * (ABNORMAL) Antinuclear antibody (JERMAIN) (01/04/2024 9:22 AM EST) JERMAIN SCREEN ON HEP 2 Positive(A ) Negative [facility] Comment:An JERMAIN Titer has bee n reflexed. The results will follow. Blood 01/04/2024 9:22 AM EST 01/04/2024 9:53 AM EST Missy WALLACE LAB BLOOD ORDERABLES Fin al Result Performing Organization Address City/[facility]/ZIP Co de Phone Number [facility] [address] [address] * Anti-Mitochondrial Antibody (AMA) (01/04/2024 9:22 AM EST) MITOCHONDRIAL AB NEGATIVE AT 1:20 [facility] Comment: Performing Physician, Max Jimenez M.D., [id number] Normal: Negative at 1:20 Blood 01/04/2024 9:22 AM EST 01/04/2024 9:53 AM EST Missy WALLACE LAB BLOOD ORDERABLES Fin al Result [address] [address] * Amylase (01/04/2024 9:22 AM EST) Pathologist [facility] AMYLASE 86 28 - 100 U/L [facility] Blood 01/04/2024 9:22 AM EST 01/04/2024 9:53 AM EST Missy WALLACE LAB BLOOD ORDERABLES Fin al Result Performing Organization Address City/[facility]/ZIP Co de Phone Number [address] [address] * AFP (non-maternal specimens) (01/04/2024 9:22 AM EST) Pathologist [facility] AFP (NON-MATERNAL) 4.7 <7.9 ng/mL [facility] Comment: Test Methodology Filipe [id number] Patient results determined by assays using different manufacturers or methods may not be comparable. Blood 01/04/2024 9:22 AM EST 01/04/2024 9:53 AM EST Missy WALLACE LAB BLOOD ORDERABLES Fin al Result Performing Organization Address City/[facility]/ZIP Co de Phone Number [address] [address] * Hxaph-6-jqqwqmiwjbt phenotyping (01/04/2024 9:22 AM EST) ALPHA 1 ANTITRYPSIN 173 100 - 190 mg/dL [facility] [address] Comment: (NOTE) ADDITIONAL INFORMATION Method: Nephelometry A1A PHENOTYPE MM bands [facility] Comment: (NOTE) A single M isoform is detected. In the context of a normal sbeqo-3-tudeqfztrua concentration, this is consistent with an MM phenotype. ADDITIONAL INFORMATION Method: Isoelectric Focusing, This assay identifies the phenotype of the circulating gcahr-5-tpplfmdmpyk (A1A) protein. If the patient is on replacement therapy or has been recently transfused, the phenotype will detect patient and replacement or transfused plasma A1A protein. This test also cannot detect a null allele which could be responsible for an A1A deficiency. Blood 01/04/2024 9:22 AM EST 01/04/2024 9:53 AM EST Missy WALLACE LAB BLOOD ORDERABLES Fin al Result [facility] [address] [place] [address] documented in this encounter Visit Diagnoses Diagnosis Need for hepatitis C screening test- Primary Special screening examination for other specified viral diseases Hepatic cirrhosis, unspecified hepatic cirrhosis type, unspecified whether ascites present Esophageal varices in alcoholic cirrhosis Esophageal varices without mention of bleeding documented in this encounter Care Teams Garage Worker Relationship Specialty Start Date End Date [facility] [address] [place] [address] PCP - General 10/07/23 Pcp, Unknown 10/07/23 documented as of this encounter Additional Source Comments The information contained in this document represents components of the legal health record. It is not the complete legal health record.[facility]
--- OUTSIDE RECORDS SUMMARY | 2025-08-30 21:20 | XMS_ITS | Clinical Summary ---
Author Organization [facility] Address [address] [place] [address] Phone Care Team Providers Care State Assessed Properties Director Name Role Phone [facility], Facility Primary Care Provider Pcp, Unknown [...] magnesia). Active monobasic and dibasic sodium phosphates (40172 ENEMA) 19-7 gram/[address] 1 [...] Patient presented with altered mental status from [facility] where he appeared more lethargic than [...] FOBT 2014 SIGMOIDOSCOPY 2014 VIRTUAL COLONOSCOPY 2014 RSV VACCINE (1 - Risk 50-74 years 1-dose series) 2019 ZOSTER VACCINES (1 of 2) 2019 POTASSIUM [...] EST) SODIUM 137 133 - 146 mmol/L [facility] POTASSIUM 4.5 3.3 - 5.1 mmol/L [facility] CHLORIDE 105 96 - 108 mmol/L [facility] CO2 22 21 - 35 mmol/L [facility] BUN 14 6 - 19 mg/dL [facility] CREATININE 0.80 0.5 - 1.5 mg/dL [facility] GLUCOSE 104(H) 70 - 99 mg/dL [facility] ALBUMIN 4.1 3.9 - 4.8 g/dL [facility] TOTAL PROTEIN 8.1(H) 6.5 - 8.0 g/dL [facility] CALCIUM 10.4(H) 8.4 - 10.3 mg/dL [facility] ALKALINE PHOSPHATASE 118(H) 39 - 117 U/L [facility] TOTAL BILIRUBIN 0.6 0.0 - 1.2 mg/dL [facility] AST 25 0 - 37 U/L [facility] ALT 7 0 - 40 U/L [facility] GLOBULIN 4.0 1 - 4.8 g/dL [facility] EGFR 105 >59 mL/min/1.7 3m2 [facility] Comment:Estimated glomerular filtration rate calculated using the CKD-EPI refit equation. ANION GAP 15 10 - 20 mmol/L [facility] Blood 01/04/2024 9:22 AM EST 01/04/2024 9:53 AM EST Missy WALLACE LAB BLOOD ORDERABLES Fin al Result Performing Organization Address City/[facility]/ZIP Co de Phone Number [address] [address] * Hepatitis C antibody, qualitative (01/04/2024 9:22 AM EST) HCV NON-REACTIV E NON-REACTI VE [facility] Blood 01/04/2024 9:22 AM EST 01/04/2024 9:53 AM EST Missy WALLACE LAB BLOOD ORDERABLES Fin al Result Performing Organization Address [facility] Co de Phone Number [address] [address] from Last 3 Months or Most Recently Relevant to Health Maintenance Insurance [place] [address] C3 [employer] [facility] C3 ACO C3 [employer] [facility] C3 [facility] [facility] C3 ACO [facility] [place] [id number] [facility] C3 ACO Advance Directives For more information, please contact: [phone] (9AM - 5PM [facility], Monday-Monday) Documents on File Type Date Recorded Patient Valver Expl anation Healthcare Proxy 10/09/2023 10:49 AM [...] Agents on File Name Relationship Healthcare Agent Gamt danyell Communication Guillermo Lobato .Primary Health Care Agent (Proxy form on file) Care Teams State Assessed Properties Director Relationship Specialty Start Date End Date [facility] [address] [place] [address] PCP - General 10/07/23 Pcp, Unknown 10/07/23 Additional Source Comments The information contained in this document represents components of the legal health record. It is not the complete legal health record.[facility]
--- OUTSIDE RECORDS SUMMARY | 2025-08-30 21:20 | XMS_ITS | Encounter Summary ---
Author Organization [facility] Address [address] [facility] [address] [place] [id number] Phone Care Team Providers Care Registered Private Duty Nurse Name Role Phone [facility], [facility] Primary Care Provider Pcp, Unknown Unavailable Unavailable Encounter Details Date Type Department Care Team ([facility] st Contact Info) Description 10/31/2023 Procedure Pass [facility] Endoscopy Admitting Dept Virtual Department [address] [place] [id number] Social History Tobacco Use Types Packs/Day Years [...] on filedocumented in this encounter Care Teams Registered Private Duty Nurse Relationship Specialty Start Date End Date [facility] [address] [place] [address] PCP - General 10/07/23 Pcp, Unknown 10/07/23 documented as of this encounter Additional Source Comments The information contained in this document represents components of the legal health record. It is not the complete legal health record.[facility]
--- NOTE | 2025-08-30 21:22 | ED.ALCOHOL ---
HPI - Alcohol General Chief Complaint: ETOH/Substance Use Stated Complaint: ETOH INTOXICATION,68% RA,BVM 99% PER EMS Time Seen by Provider: 08/30/25 21:02 Source: patient, EMS, RN notes reviewed and old records reviewed Mode of arrival: EMS Limitations: altered mental status (alcohol intoxication) History of Present Illness HPI narrative: 55-year-old male with a history of alcoholism presenting with hypoxia from his friend's porch. Patient was found by police, intoxicated and physical exam revealed a hypoxia with the oxygen level of 68% on room air. He was placed on a non-rebreather which brought his oxygen level up to 99%. Patient does have an extensive history of lung disease and alcohol use disorder. Patient has no complaints. States ?I was just sleeping ?when asked what happened tonight. He denies feeling short of breath, chest pain, fevers, cough with sputum production, nausea, vomiting, diarrhea or extremity swelling or pain. Last drink of alcohol was just prior to being found by police. States ?I had my vodka and then I fell asleep?. Denies SI. Denies other illicit substance use. Related Data Previous Rx's ?Medication ?Instructions ?Recorded albuterol sulfate 90 mcg/actuation 2 puff inhalation Q4-6H PRN 08/20/25 aerosol inhaler (Ventolin HFA) shortness of breath or wheezing #8.5 grams amoxicillin 875 mg-potassium 1 tab PO BID #6 tabs 08/20/25 clavulanate 125 mg tablet folic acid 1 mg tablet 1 mg PO DAILY #30 tabs 08/20/25 magnesium oxide 400 mg (241.3 mg 400 mg PO DAILY #30 tabs 08/20/25 magnesium) tablet naltrexone 50 mg tablet 50 mg PO DAILY #30 tabs 08/20/25 thiamine mononitrate (vit B1) 100 100 mg PO DAILY #30 tabs 08/20/25 mg tablet Allergies Allergy/AdvReac Type Severity Reaction Status Date / Time No Known Allergies (No Known Allergy Verified 08/30/25 21:10 Allergies*) Review of Systems Review of Systems: as per HPI, full review of systems performed and negative but for the above mentioned pertinent positives and negatives. PMFSH Past Medical History Medical History Pancytopenia Cirrhosis Hypomagnesemia Aspiration pneumonia Alcohol use disorder CHF (congestive heart failure) Alcohol abuse Acute hypoxemic respiratory failure Anemia Pneumonia Alcohol withdrawal syndrome Alcohol abuse Thrombocytopenia Esophageal varices Acute on chronic anemia Alcoholic liver disease Thrombocytopenia Malnutrition CHF (congestive heart failure) Anemia Thrombocytopenia Acute on chronic anemia CHF (congestive heart failure) Anemia Alcohol abuse Surgical History No history of previous surgery Social History Social History Household Members: Other Household Members Other:: homeless Housing: Homeless Housing Other:: homeless Do you presently have visiting nurse or other home services: No Alcohol intake: current Alcohol intake frequency: 3 or more drinks per day Alcohol type: beer and hard liquor Comment: pt refuse to have staff remain in BR Patient Tobacco Use Status: Former Tobacco user Tobacco use type: Cigarette Smoked in Last 30 Days: No Second Hand Smoke Exposure: No Use of substances other than those prescribed or required for medical reasons: No Any prior treatment program specific to substance use: Yes Advance Directives: Yes Advance Directives on File: Yes Advance Directives Date on File: 07/13/23 Do you have a plan to hurt others: No Plan service: No Physical Exam ED Vital Signs: Vital Signs - 24 hr 08/30/25 21:03 08/30/25 22:43 Temperature 98.7 F Pulse Rate 84 78 Respiratory Rate 18 16 Blood Pressure 106/57 L 117/74 Pulse Oximetry 92 96 Oxygen Delivery Method Nasal Cannula Room Air BMI result Body Mass Index 21.7 Medical Decision Making Medical Decision Making MDM Narrative: 55-year-old male with a history of alcoholism presenting with hypoxia from his friend's porch. Patient was found by police, intoxicated and physical exam revealed a hypoxia with the oxygen level of 68% on room air. He was placed on a non-rebreather which brought his oxygen level up to 99%. Patient does have an extensive history of lung disease and alcohol use disorder. Patient has no complaints. Differential diagnosis includes alcohol intoxication, substance use, overdose, withdrawal, pneumonia, pulmonary embolism, ACS, CHF exacerbation, COPD exacerbation, among many others. Patient is very well known to this emergency department. He was just here about 7 days ago with similar complaints. He will typically go into withdrawal and we will either require phenobarb or we will request discharge to continue drinking. Upon initially arriving to the ED, his oxygen level did improve significantly and he was transitioned to nasal cannula oxygen. On my exam, his oxygenation remains in the low 90s on 4 L nasal cannula. I attempted to trial him off of oxygen since he has no complaints however, his oxygen level precipitously drops into the low 70s on room air. Patient denies feeling short of breath though. Ongoing to see if his chest x-ray shows any consolidations or edema. He is eating a sandwich and watching television at this time. 10:50:07 PM 08/30/2025 (Dr. Lurdes Manjarrez, Suraj.O.) patient's chest x-ray appears to show some retrocardiac densities concerning for pneumonia. Broadened his workup to evaluate pneumonia further with blood work. Patient remains hypoxic despite supplemental oxygen. Patient has similar presentation back in June that required admission. 1:48 AM 08/31/2025 (Dr. Lurdes Manjarrez, Suraj.O.) patient flagging for severe sepsis at this time with an elevated lactic acid level of 3.7. Sepsis focused exam has been performed. Patient remains hypoxic with oxygen saturations in the high 80s on 4 L nasal cannula oxygen. I suspect that the lactic acid level of 3.7 may be partially type B lactic acidosis secondary to the patient's liver cirrhosis due to alcoholism. He is coming close to having alcohol withdrawal with an alcohol level in the 50s. We will add on phenobarbital. Patient given 1 L fluid bolus, holding off on a 30 cc/kg fluid bolus due to history of heart failure an overall volume overload on exam. We will admit to hospitalist for further care and evaluation of pneumonia, severe sepsis and alcohol withdrawal. Differential Diagnosis Differential Diagnoses: The differential diagnosis associated with the presentation includes (As above) Admission/Observation Consideration of admission/observation: Escalation of care including admission/observation considered Consult Healthcare Provider Management of the patient was discussed with: Hospitalist Lab Data MDM Lab Attestation statement: I reviewed the patient's lab results. 08/31/25 00:19 08/31/25 00:19 Labs: Lab Results 08/31/25 Range/Units 00:19 WBC 3.1 L (4.8-10.8) X10*3/uL RBC 3.09 L (4.60-5.80) X10*6/uL Hgb 9.4 L (14.0-18.0) g/dl Hct 29.5 L (42.0-52.0) % MCV 95.5 (80.0-98.0) fL MCH 30.4 (27.0-33.0) pg MCHC 31.9 (31.0-36.0) g/dl RDW 17.4 H (11.0-16.0) % Plt Count 58 L (160-400) X10*3/uL MPV 12.2 (9.4-12.4) fL Immature Gran % (Auto) 0.3 (0.0-0.4) % Neut % (Auto) 62.6 (45-73) % Lymph % (Auto) 22.0 (20-40) % Isabela % (Auto) 10.2 (2-11) % Eos % (Auto) 3.9 (0-4) % Baso % (Auto) 1.0 (0-2) % Lymph # (Auto) 0.7 L (1.2-4.9) X10*3/uL Isabela # (Auto) 0.3 (0.1-1.2) X10*3/uL Eos # (Auto) 0.1 (0.0-0.4) X10*3/uL Baso # (Auto) 0.0 (0.0-0.2) X10*3/uL Abs Immat Gran (auto) 0.01 (0.00-0.03) X10*3/uL Absolute Neuts (auto) 1.9 L (2.0-8.3) x10*3/uL Absolute Nucleated RBC 0.000 (0.0-0.012) X10*3/uL Nucleated RBC % (auto) 0.0 (0.0-0.2) /100WBC Smear Tech's Comments VERIFIED Sodium 144 (135-145) mmol/L Potassium 3.8 D (3.3-5.1) mmol/L Chloride 113 H (96-108) mmol/L Carbon Dioxide 19 L (22-29) mmol/L Anion Gap 16 (12-20) BUN 13 (9-16) mg/dL Creatinine 0.95 (0.5-1.4) mg/dL Estim Creat Clear Calc 75.0 Estimated GFR > 60 Random Glucose 129 H (60-115) mg/dL Lactic Acid 3.7 H* (0.5-2.0) mmol/L Calcium 8.5 D (8.4-10.2) mg/dL Total Bilirubin 0.5 (0.0-1.0) mg/dL AST 40 H (5-37) U/L ALT 12 (0-40) U/L Alkaline Phosphatase 130 H (39-117) U/L Troponin I High Sens < 2.7 (<3.5-35.0) ng/L NT-Pro-B Natriuret Pep 188.9 (<300) pg/mL Total Protein 7.0 (6.5-8.0) g/dL Albumin 3.0 L (3.5-5.0) g/dL Ethyl Alcohol 55 mg/dL COVID-19 (TAI) Negative (Negative) COVID-19 Clin Com See Note Influenza Type A (PAULETTE) Negative (Negative) Influenza Type B (PAULETTE) Negative (Negative) Influenza A & B Note See Note Independent Interpretation I performed an independent interpretation of an: EKG and Plain X-Ray Interpretation: My independent interpretation of the chest x-ray reveals a retrocardiac consolidation/left lower lobe consolidation. Slight pulmonary edema as well. My independent interpretation of the ECG reveals normal sinus rhythm with rate of 88, normal axis, normal intervals, no ST elevations or depressions to suggest ischemic changes, relatively unchanged from previous on 08/14/2025. Radiology Impression Discussion of test interpretation with radiology: I have reviewed the radiologist's reading. Independent Historian Clinical information obtained from an independent historian. History obtained from or confirmed by: EMS External Record Review External record reviewed: Inpatient record Chronic Conditions Patient?s care impacted by: Other (Alcoholic liver cirrhosis, pancytopenia, alcohol use disorder, CHF) Social Determinants Patient?s care significantly limited by Social Determinants of Health including: Inadequate housing, Problems related to primary support group and Other Social Determinant of Health Medications Administered Discontinued Medications Generic Name Dose Route Start Last Admin Trade Name Freq PRN Reason Stop Dose Admin Ceftriaxone Sodium 1 gm 08/30/25 23:43 08/31/25 00:38 Ceftriaxone Sodium 1 Gm Vial IVPUSH 08/30/25 23:44 1 gm ONCE ONE Administration Doxycycline Hyclate 100 mg/ 250 mls @ 166.67 mls/hr 08/30/25 23:43 08/31/25 00:37 Sodium Chloride IV 08/31/25 01:12 166.67 mls/hr ONCE ONE Administration Sodium Chloride 1,000 mls @ 999 mls/hr 08/30/25 23:45 08/31/25 00:21 Ns IV 08/31/25 00:45 999 mls/hr .Q1H1M JOSE MANUEL Administration Critical Care Time Critical Care Time Critical Care Time: Yes Total Critical Care Time: 35 Attestation: CRITICAL CARE TIME: 35 minutes of critical care time was spent in direct patient care at the bedside or in the immediate area with this patient. Critical care was necessary to treat or prevent imminent or life-threatening deterioration of the following conditions hypoxia due to pneumonia, severe sepsis, alcohol withdrawal. This patient is high risk for decompensation and/or . This time was spent assessing and managing the patient, interpreting labs and imaging, coordinating care with other medical providers, gathering history from either the patient, their representatives, EMS or chart review, and discussing management with admitting team. Discharge Plan Discharge Clinical Impression: Acute hypoxic respiratory failure, Left lower lobe pneumonia, Alcohol withdrawal, Housing insecurity, Pancytopenia, Acidosis, lactic Patient Disposition: Admitted As Inpatient Print Language: Azerbaijani
[2025-08-30 22:43] VITALS: BP 117/74; PULSE 78; RESP 16; O2SAT 96
--- NOTE | 2025-08-30 23:41 | ECG_ITS ---
Test Reason : HYPOXIA Blood Pressure : */* mmHG Vent. Rate : 88 BPM Atrial Rate : 88 BPM P-R Int : 112 ms QRS Dur : 86 ms QT Int : 394 ms P-R-T Axes : 22 22 14 degrees QTcB Int : 476 ms Normal sinus rhythm Normal ECG When compared with ECG of 14-Aug-2025 16:51, No significant change was found Referred By: Lurdes Manjarrez Electronically Signed By: Brayan Negron
[2025-08-31 00:37] LABS: Imm Gran Abs Auto 0.01 X10*3/uL (0.00-0.03); Imm Gran Pct Auto 0.3 % (0.0-0.4); MANUAL DIFF FLAG SCAN; NRBC Abs Auto 0.000 X10*3/uL (0.0-0.012); NRBC Pct Auto 0.0 /100WBC (0.0-0.2); SCAN SMEAR FLAG 1
[2025-08-31 00:39] LABS: Hematocrit 29.5 % (42.0-52.0); Hemoglobin 9.4 g/dl (14.0-18.0); Lymphocytes Absolute Auto 0.7 X10*3/uL (1.2-4.9); Mean Corpuscular HGB Conc 31.9 g/dl (31.0-36.0); Mean Corpuscular Hemoglobin 30.4 pg (27.0-33.0); Mean Corpuscular Volume 95.5 fL (80.0-98.0); PLT CLUMP 1; Red Blood Count 3.09 X10*6/uL (4.60-5.80)
[2025-08-31 00:45] LABS: Alanine Aminotransferase 12 U/L (0-40); Albumin Level 3.0 g/dL (3.5-5.0); Alkaline Phosphatase 130 U/L (39-117); Anion Gap 16 (12-20); Aspartate Amino Transferase 40 U/L (5-37); Blood Urea Nitrogen 13 mg/dL (9-16); Calcium 8.5 mg/dL (8.4-10.2); Carbon Dioxide 19 mmol/L (22-29); Chloride 113 mmol/L (96-108); Creatinine Clr Calc Pharmacy 75.0; Estimated Glomerular Filt Rate > 60; Potassium 3.8 mmol/L (3.3-5.1); Sodium 144 mmol/L (135-145); Total Protein 7.0 g/dL (6.5-8.0)
[2025-08-31 00:51] LABS: NT Pro B Type Natriuretic Pept 188.9 pg/mL (<300)
[2025-08-31 00:58] LABS: PLT ABN DIST 1; Platelet Count 58 X10*3/uL (160-400); Troponin-I High Sensitivity < 2.7 ng/L (<3.5-35.0); White Blood Count 3.1 X10*3/uL (4.8-10.8)
[2025-08-31 01:10] LABS: COVID-19 Test Negative (Negative); IDNOW Serial# 55D5AD1C; IDNOW Serial# 58CA691E; Influenza B2 Negative (Negative)
[2025-08-31 03:21] LABS: Reflex Lactate? Lactic Acid Added
[2025-08-31] MEDS: PHENobarbitaL sodium 130 MG/ML IM ONCE 366.6 MG IM (03:27)
[2025-08-31] MEDS: iohexoL 350 MG/ML 100 ML INFUS..BTL IV (03:52)
[2025-08-31 04:04] LABS: ~Lactic Acid-LAB USE ONLY 1.1 mmol/L (0.5-2.0)
[2025-08-31 04:33] LABS: Magnesium 1.6 mg/dL (1.6-2.6)
--- NOTE | 2025-08-31 04:53 | PM.IMHP ---
History of Present Illness Date of Service: 08/31/25 Attending physician on admission: Lico Mayo Chief Complaint: Alcohol intoxication Charbel Delgaod is a 55 years old man with past medical history significant for multiple hospitalizations, liver cirrhosis, ongoing alcohol abuse and chronic pancytopenia and homeless who was brought to the emergency department EMS due to ETOH intoxication. Per triage note patient was found sleeping on a porch by PD and was in court for trespassing last week. The patient denied chest pain, shortness on breath or cough. He did not report any acute gastrointestinal genitourinary symptoms. Last alcoholic drink last night 19:00. In the ED, he was found to have stable vital signs. Per ED provider patient's O2 sats dropped to high 80s and is currently on 4 L/min supplemental oxygen via nasal cannula. Blood workup was basically unremarkable except for lactic acidosis of 3.7 that already normalized normalized. Pro BNP is normal. ETOH level is 55. CXR showed pulmonary vascular congestion and left basilar artery stasis/pneumonia. ED tx: Ceftriaxone 1 g IV, doxycycline 1 g IV, NS 1 L bolus, phenobarbital protocol started Review of Systems Review of Systems: Poor historian [facility] Medical History Pancytopenia Cirrhosis Hypomagnesemia Aspiration pneumonia Alcohol use disorder CHF (congestive heart failure) Alcohol abuse Acute hypoxemic respiratory failure Anemia Pneumonia Alcohol withdrawal syndrome Alcohol abuse Thrombocytopenia Esophageal varices Acute on chronic anemia Alcoholic liver disease Thrombocytopenia Malnutrition CHF (congestive heart failure) Anemia Thrombocytopenia Acute on chronic anemia CHF (congestive heart failure) Anemia Alcohol abuse Surgical History No history of previous surgery Social History Household Members: Other Household Members Other:: homeless Housing: Homeless Housing Other:: homeless Do you presently have visiting nurse or other home services: No Alcohol intake: current Alcohol intake frequency: 3 or more drinks per day Alcohol type: beer and hard liquor Comment: pt refuse to have staff remain in BR Patient Tobacco Use Status: Former Tobacco user Tobacco use type: Cigarette Smoked in Last 30 Days: No Second Hand Smoke Exposure: No Use of substances other than those prescribed or required for medical reasons: No Any prior treatment program specific to substance use: Yes Advance Directives: Yes Advance Directives on File: Yes Advance Directives Date on File: 07/13/23 Do you have a plan to hurt others: No Plan service: No Meds Allergies Allergy/AdvReac Type Severity Reaction Status Date / Time No Known Allergies (No Known Allergy Verified 08/30/25 21:10 Allergies*) Active Medications: Current Medications Acetaminophen (Acetaminophen 325 Mg Tablet) 650 mg PO Q6H PRN PRN Reason: Pain, Mild 1-3,fever,headache Calcium Carbonate (Calcium Carbonate 750 Mg Tab.Chew) 750 mg PO Q4H PRN PRN Reason: Heartburn Enoxaparin Sodium (Enoxaparin Sodium 40 Mg/0.4 Ml Syringe) 40 mg SUBCUT Q24H JOSE MANUEL Magnesium Hydroxide (Milk Of Magnesia 30 Ml Oral.Susp) 30 ml PO DAILY PRN PRN Reason: Constipation Melatonin (Melatonin 3 Mg Tablet) 6 mg PO BEDTIME PRN PRN Reason: Insomnia Pharmacy Consult (Consult Rx Etoh Phenob Im/Po) 1 each MISCELLANE ONCE PRN; Protocol PRN Reason: Consult order Phenobarbital (Phenobarbital 15 Mg Tablet) 45 mg PO BID JOSE MANUEL; Protocol Stop: 09/02/25 21:01 Phenobarbital (Phenobarbital 15 Mg Tablet) 15 mg PO BID JOSE MANUEL; Protocol Stop: 09/04/25 21:01 Phenobarbital (Phenobarbital 15 Mg Tablet) 15 mg PO DAILY JOSE MANUEL; Protocol Stop: 09/06/25 09:01 Phenobarbital Sodium (Phenobarbital Sodium 130 Mg/Ml Vial Im Q3hx2) 274.8 mg IM Q3H JOSE MANUEL; Protocol Stop: 08/31/25 09:01 Sodium Chloride (0.9 % Sodium Chloride Flush 3 Ml Syringe) 3 ml IVFLUSH QSHIFT [facility] Physical Exam Vital Signs and Narrative: Vital Signs: Last Vital Signs Temp 98.7 F 08/30/25 21:03 Pulse 78 08/30/25 22:43 Resp 16 08/30/25 22:43 BP 117/74 08/30/25 22:43 Pulse Ox 96 08/30/25 22:43 O2 Del Method Room Air 08/30/25 22:43 Oxygen Flow Rate 3 08/30/25 21:03 BMI result Body Mass Index 21.7 General: Sleeping, cooperative. Disheveled. Nasal cannula in place. HEENT: Head normocephalic, atraumatic. PER, EOMI. Sclerae anicteric, conjunctiva clear. Oropharynx without erythema or exudate. Mucous membranes moist. Neck: Supple, no lymphadenopathy, or JVD. Heart: RRR, no murmurs, rubs or gallops. Lungs: Clear to auscultation bilaterally. No wheezes, rales, or rhonchi. Normal respiratory effort. Abdomen: Soft, non tenderness, nondistended, normoactive bowel sounds. No hepatosplenomegaly, masses or masses. Extremities: No calf tenderness bilaterally, no swelling Musculoskeletal: Full range of motion. No joint swelling, deformity, or tenderness. Normal muscle tone and strength. Skin: Warm/Dry. No pallor. No jaundice. Neurologic: Alert & oriented x4. Moving all extremities spontaneously. Normal speech. Psychological: Normal mood and affect. Thought process coherent. Results Labs 08/31/25 00:19 08/31/25 00:19 Labs: Laboratory Results - last 24 hr 08/31/25 08/31/25 00:19 03:45 MCV 95.5 MCH 30.4 MCHC 31.9 RDW 17.4 H Plt Count 58 L MPV 12.2 Immature Gran % (Auto) 0.3 Neut % (Auto) 62.6 Lymph % (Auto) 22.0 Swift % (Auto) 10.2 Eos % (Auto) 3.9 Baso % (Auto) 1.0 Lymph # (Auto) 0.7 L Swift # (Auto) 0.3 Eos # (Auto) 0.1 Baso # (Auto) 0.0 Abs Immat Gran (auto) 0.01 Absolute Neuts (auto) 1.9 L Absolute Nucleated RBC 0.000 Nucleated RBC % (auto) 0.0 Smear Tech's Comments VERIFIED Anion Gap 16 Estim Creat Clear Calc 75.0 Estimated GFR > 60 Random Glucose 129 H Lactic Acid 3.7 H* Lactic Acid F/U @ 2Hr 1.1 Calcium 8.5 D Magnesium 1.6 Total Bilirubin 0.5 AST 40 H ALT 12 Alkaline Phosphatase 130 H Troponin I High Sens < 2.7 NT-Pro-B Natriuret Pep 188.9 Total Protein 7.0 Albumin 3.0 L Ethyl Alcohol 55 COVID-19 (TAI) Negative COVID-19 Clin Com See Note Influenza Type A (PAULETTE) Negative Influenza Type B (PAULETTE) Negative Influenza A & B Note See Note Assessment and Plan (1) Alcoholic intoxication: Qualifiers: Complication of substance-induced condition: uncomplicated Qualified Code(s): F10.920 - Alcohol use, unspecified with intoxication, uncomplicated Status: Acute (2) Left lower lobe pneumonia: Qualifiers: Pneumonia type: due to unspecified organism Qualified Code(s): J18.9 - Pneumonia, unspecified organism Status: Acute (3) Acute hypoxic respiratory failure: Status: Acute Plan Charbel Delgado is a 55 y/o man PHMx significant for multiple hospitalizations for hypoxia after being found by police intoxicated and noncompliant with medications or follow presents with: Acute hypoxic respiratory failure likely secondary to pneumonia versus atelectasis. Pro BNP is normal; did not appear fluid overloaded (last TTE May 2025 showed normal EF and normal diastolic function). Chest CT scan of the chest still pending. Telemetry. Pulse oximetry. Supplemental O2 to keep O2 sats > 90%. Continue empiric IV antibiotic therapy with Zosyn ? Aspiration. Alcohol abuse. CIWA. Continue phenobarbital protocol. Thiamine, folic acid and multivitamins. Alcoholic liver cirrhosis with history of esophageal varices and pancytopenia. At baseline. No evidence of acute bleeding. Continue to monitor. Acute lactic acidosis, resolved. Due to liver failure and alcohol intoxication. Code status: Full DVT prophylaxis: SCDs (pharmacological VTE prophylaxis contraindicated due to thrombocytopenia). Patient will need hospitalization for at least 2 midnights for acute hypoxic respiratory failure secondary to pneumonia for IV antibiotic therapy, supplemental oxygen and close monitoring of vital signs. Quality Stroke Does the patient have a stroke diagnosis?: No VTE Prior VTE?: No VTE Risk Level:: Medical - moderate - high VTE Device Contraindication: N/A - Device Ordered VTE Drug Contraindication: N/A - Med Ordered
[2025-08-31] MEDS: Thiamine HCL 100 MG in 0.9 % Sodium Chloride 100 ML 202 MG IV (05:45)
--- NOTE | 2025-08-31 05:46 | PC.NURSE ---
thiamine 1mg wasted prior to admin of thiamine in 100 NS
[2025-08-31 06:24] VITALS: BP 106/52; PULSE 79; RESP 20; O2SAT 92
[2025-08-31] MEDS: PHENobarbitaL sodium 130 MG/ML VIAL IM Q3Hx2 274.8 MG IM ×2 (06:24→08:52)
[2025-08-31 06:49] LABS: Cannabinoid Screen Urine Not Detected (Not Detect)
[2025-08-31 07:00] LABS: MANUAL DIFF FLAG NO
[2025-08-31 07:15] LABS: Hematocrit 30.3 % (42.0-52.0); Hemoglobin 9.6 g/dl (14.0-18.0); Imm Gran Abs Auto 0.03 X10*3/uL (0.00-0.03); Imm Gran Pct Auto 1.0 % (0.0-0.4); Lymphocytes Absolute Auto 0.7 X10*3/uL (1.2-4.9); Mean Corpuscular HGB Conc 31.7 g/dl (31.0-36.0); Mean Corpuscular Hemoglobin 30.6 pg (27.0-33.0); Mean Corpuscular Volume 96.5 fL (80.0-98.0); NRBC Abs Auto 0.000 X10*3/uL (0.0-0.012); NRBC Pct Auto 0.0 /100WBC (0.0-0.2); Red Blood Count 3.14 X10*6/uL (4.60-5.80); White Blood Count 3.1 X10*3/uL (4.8-10.8)
[2025-08-31 07:16] LABS: Platelet Count 60 X10*3/uL (160-400)
[2025-08-31 07:36] LABS: Anion Gap 9 (12-20); Blood Urea Nitrogen 12 mg/dL (9-16); Calcium 8.0 mg/dL (8.4-10.2); Carbon Dioxide 21 mmol/L (22-29); Chloride 117 mmol/L (96-108); Creatinine Clr Calc Pharmacy 100.3; Estimated Glomerular Filt Rate > 60; Magnesium 1.4 mg/dL (1.6-2.6); Potassium 4.2 mmol/L (3.3-5.1); Sodium 143 mmol/L (135-145)
[2025-08-31] MEDS: 0.9 % Sodium Chloride Flush 3 ML SYRINGE IVFLUSH ×2 (08:30→15:23)
[2025-08-31] MEDS: Magnesium Sulfate/H2O 2 GM/50 ML PIGGYBACK IV (08:30)
[2025-08-31 08:51] VITALS: BP 98/48; PULSE 73; RESP 20; TEMP 36.6; O2SAT 97
--- NOTE | 2025-08-31 09:45 | PHA.MEDREC ---
Pharmacy Consult ? Medication Reconciliation Pharmacy has completed the medication reconciliation.Med rec complete, patient very drowsy and not a good source of information. Recent discharge on 08/20 started some medications unclear if patient actually taking but these were prescribed at last admission.
--- NOTE | 2025-08-31 11:29 | PM.EVENT ---
Event Note Date of Service: 08/31/25 Event Note: Seen and evaluated Looks lethargic and sleepy, response to questions but gets back to sleep Pending cultures Continue Antibiotics Check Ammonia level replace MG and recheck Wean down O2 as tolerated Time Spent With Patient Time: Total time managing care of this patient today ____ minutes.
[2025-08-31 12:01] LABS: Ammonia 70 umol/L (13-55)
[2025-08-31 13:14] VITALS: BP 104/61; PULSE 72; RESP 20; TEMP 36.9; O2SAT 92
[2025-08-31 15:51] VITALS: BP 108/48; PULSE 70; RESP 19; TEMP 37.1; O2SAT 93
[2025-08-31 19:10] VITALS: BP 113/57; PULSE 79; RESP 19; O2SAT 94
--- NOTE | 2025-08-31 19:13 | PC.NURSE ---
Assumed care of pt, presented to the ED for hypoxia, pt was found outside by EMS with Spo2 in the 70's, pt currently in 4L N/C with Spo2 of 94%, aaox4, nad, pt is pending a admission bed
[2025-09-01 04:23] LABS: MANUAL DIFF FLAG NO
[2025-09-01 04:25] LABS: Hematocrit 31.0 % (42.0-52.0); Hemoglobin 9.8 g/dl (14.0-18.0); Imm Gran Abs Auto 0.01 X10*3/uL (0.00-0.03); Imm Gran Pct Auto 0.2 % (0.0-0.4); Lymphocytes Absolute Auto 0.7 X10*3/uL (1.2-4.9); Mean Corpuscular HGB Conc 31.6 g/dl (31.0-36.0); Mean Corpuscular Hemoglobin 30.2 pg (27.0-33.0); Mean Corpuscular Volume 95.4 fL (80.0-98.0); NRBC Abs Auto 0.000 X10*3/uL (0.0-0.012); NRBC Pct Auto 0.0 /100WBC (0.0-0.2); Red Blood Count 3.25 X10*6/uL (4.60-5.80); White Blood Count 4.0 X10*3/uL (4.8-10.8)
[2025-09-01 04:26] LABS: Platelet Count 61 X10*3/uL (160-400)
[2025-09-01 04:42] LABS: Anion Gap 11 (12-20); Blood Urea Nitrogen 12 mg/dL (9-16); Calcium 8.3 mg/dL (8.4-10.2); Carbon Dioxide 19 mmol/L (22-29); Chloride 110 mmol/L (96-108); Creatinine Clr Calc Pharmacy 93.7; Estimated Glomerular Filt Rate > 60; Potassium 4.1 mmol/L (3.3-5.1); Sodium 136 mmol/L (135-145)
[2025-09-01 05:03] LABS: Magnesium 1.4 mg/dL (1.6-2.6)
[2025-09-01] MEDS: Magnesium Sulfate/H2O 2 GM/50 ML PIGGYBACK IV (06:19)
--- NOTE | 2025-09-01 08:30 | PC.NURSE ---
Patient noted to have removed NC and cardiac leads and was walking to the bathroom unassisted. Patient redirected back to room and hooked back up to O2 and monitor O2 95% 4L, HR 75 NSR Reminded patient to use call harris for assistance
[2025-09-01 08:34] VITALS: BP 103/42; PULSE 77; RESP 15; O2SAT 95
--- NOTE | 2025-09-01 09:17 | MHC.CM.PN ---
EMR REVIEWED, PT FOUND SLEEPING ON [place] [place] W/ETOH INTOXICATION, PT RECENTLY ADMITTED FOR HYPOXIA D/T ASP PNA, PT IS HOMELESS AND TYPICALLY RETURNS TO A SPOT BEHIND A LIQUIR STORE ON HIGH , NO DME/SERVICES, PT HAS REPORTED THAT HE GOES TO [employer] FOR MEALS AND JAIL DURING WINTER MONTHS. HCP ON FILE, PT HAS BEEN INSTRUCTED MULTIPLE TIMES TO GO TO WALK IN AT [facility] FOR THE FEE[place]-MINDED FOR PRIMARY CARE, PT DISCHARGED W/ALL MEDS 08/21/25 FROM [facility]. DP: RETURN TO [facility], PT TYPICALLY WALKS AND DECLINES TRANSPORT.
[2025-09-01] MEDS: Thiamine HCL 100 MG in 0.9 % Sodium Chloride 100 ML 202 MG IV (09:20)
[2025-09-01 12:00] VITALS: BP 102/50; PULSE 76; RESP 20; TEMP 36.7; O2SAT 92
--- NOTE | 2025-09-01 13:35 | HO.PM.IMPN ---
Subjective Subjective Date of Service: 09/01/25 Interval History: Feels tired but overall well No acute events overnight Complains of chronic left ankle pain Denies SOB or cough Review of Systems Review of Systems: Yes all other systems are reviewed and are negative Physical Exam Exam: Exam: General: AOx3, no acute distress. Disheveled Resp: CTA bilaterally CVS: S1, S2, RRR GI: +BS, NT, no distention Skin: Warm, dry Neuro: Cranial nerves II-XII grossly intact bilaterally. Motor grossly intact bilaterally Extremities: No edema Psych: Calm, cooperative Vital Signs: Vital Signs: Last Vital Signs Temp 98.1 F 09/01/25 12:00 Pulse 76 09/01/25 12:00 Resp 20 09/01/25 12:00 BP 102/50 L 09/01/25 12:00 Pulse Ox 92 09/01/25 12:00 O2 Del Method Nasal Cannula 09/01/25 12:00 O2 Flow Rate 4 09/01/25 12:00 Oxygen Flow Rate 3 08/30/25 21:03 BMI result Body Mass Index 21.7 Objective Data Active Medications Acetaminophen (Acetaminophen 325 Mg Tablet) 650 mg PO Q6H PRN PRN Reason: Pain, Mild 1-3,fever,headache Calcium Carbonate (Calcium Carbonate 750 Mg Tab.Chew) 750 mg PO Q4H PRN PRN Reason: Heartburn Folic Acid (Folic Acid 1 Mg Tablet) 1 mg PO DAILY REPLACED BY [facility] Last Admin: 09/01/25 09:20 Dose: 1 mg Documented By: ELIZABETH Thiamine HCl 100 mg/ Sodium (Chloride) 101 mls @ 202 mls/hr IV DAILY REPLACED BY [facility] Last Infusion: 09/01/25 09:57 Dose: Infused Documented By: MACIEJ Piperacillin Sod/Tazobactam (Sod 3.375 gm/ Sodium Chloride) 50 mls @ 100 mls/hr IV Q6H REPLACED BY [facility] Last Infusion: 09/01/25 13:33 Dose: Infused Documented By: MACIEJ Magnesium Hydroxide (Milk Of Magnesia 30 Ml Oral.Susp) 30 ml PO DAILY PRN PRN Reason: Constipation Melatonin (Melatonin 3 Mg Tablet) 6 mg PO BEDTIME PRN PRN Reason: Insomnia Multivitamins/Vitamin C (Multivitamin Tablet) 1 tab PO DAILY REPLACED BY [facility] Last Admin: 09/01/25 09:20 Dose: 1 tab Documented By: ELIZABETH Pharmacy Consult (Consult Rx Etoh Phenob Im/Po) 1 each MISCELLANE ONCE PRN; Protocol PRN Reason: Consult order Phenobarbital (Phenobarbital 15 Mg Tablet) 45 mg PO BID REPLACED BY [facility]; Protocol Stop: 09/02/25 21:01 Last Admin: 09/01/25 09:20 Dose: 45 mg Documented By: ELIZABETH Phenobarbital (Phenobarbital 15 Mg Tablet) 15 mg PO BID JOSE MANUEL; Protocol Stop: 09/04/25 21:01 Phenobarbital (Phenobarbital 15 Mg Tablet) 15 mg PO DAILY JOSE MANUEL; Protocol Stop: 09/06/25 09:01 Sodium Chloride (0.9 % Sodium Chloride Flush 3 Ml Syringe) 3 ml IVFLUSH QSHIFT JOSE MANUEL Last Admin: 09/01/25 09:21 Dose: Not Given Documented By: ELIZABETH Non-Admin Reason: IV Running Labs 09/01/25 04:07 09/01/25 04:07 Labs: Laboratory Results - last 24 hr 09/01/25 04:07 MCV 95.4 MCH 30.2 MCHC 31.6 RDW 17.6 H Plt Count 61 L MPV 13.0 H Immature Gran % (Auto) 0.2 Neut % (Auto) 69.4 Lymph % (Auto) 16.6 L [place] % (Auto) 8.9 Eos % (Auto) 4.2 H Baso % (Auto) 0.7 Lymph # (Auto) 0.7 L [place] # (Auto) 0.4 Eos # (Auto) 0.2 Baso # (Auto) 0.0 Abs Immat Gran (auto) 0.01 Absolute Neuts (auto) 2.8 Absolute Nucleated RBC 0.000 Nucleated RBC % (auto) 0.0 Anion Gap 11 L Estim Creat Clear Calc 93.7 Estimated GFR > 60 Random Glucose 116 H Calcium 8.3 L Magnesium 1.4 L* Microbiology Microbiology Results: Microbiology 08/31/25 00:19 Blood Culture - Preliminary Blood - Venous No growth after 24 hours. 08/31/25 00:19 Blood Culture - Preliminary Blood - Venous No growth after 24 hours. Assessment and Plan (1) Alcohol use disorder, severe, dependence: Status: Acute (2) Acute hypoxic respiratory failure: Status: Acute Plan Charbel Delgado is a 55 y/o man PHMx significant for multiple hospitalizations for hypoxia after being found by police intoxicated and noncompliant with medications or follow presents with: Acute hypoxic respiratory failure likely secondary to pneumonia versus atelectasis CTA neg for PE, showing LLL ground-glass opacities consistent with an infectious/inflammatory process Empiric Zosyn, day 3; ?aspiration Telemetry, pulse oximetry Supplemental O2 to keep O2 sats > 90% Follow cultures Question of alcohol esophagitis As seen on CT F/U outpatient for possible EGD Alcohol use disorder Continue phenobarbital protocol CIWA Thiamine, folic acid and multivitamins. Alcoholic liver cirrhosis with history of esophageal varices and pancytopenia At baseline No evidence of acute bleeding Continue to monitor Acute lactic acidosis, resolved Due to liver failure and alcohol intoxication. Code status: Full DVT prophylaxis: SCDs (pharmacological VTE prophylaxis contraindicated due to thrombocytopenia). Patient will need continued hospitalization for acute hypoxic respiratory failure secondary to pneumonia requiring IV antibiotic therapy, supplemental oxygen and close monitoring of vital signs. Quality Stroke Does the patient have a stroke diagnosis?: No VTE Prior VTE?: No VTE Risk Level:: Medical - moderate - high VTE Device Contraindication: N/A - Device Ordered VTE Drug Contraindication: N/A - Med Ordered
[2025-09-01 16:00] VITALS: BP 114/53; PULSE 80; RESP 20; TEMP 37.2; O2SAT 95
[2025-09-01] MEDS: 0.9 % Sodium Chloride Flush 3 ML SYRINGE IVFLUSH ×2 (18:04→20:20)
[2025-09-01 19:03] VITALS: BP 100/53; PULSE 76; RESP 18; TEMP 37.2; O2SAT 90
[2025-09-01 20:05] VITALS: BP 108/55
[2025-09-01 23:33] VITALS: BP 111/56; PULSE 70; RESP 16; TEMP 37.3; O2SAT 92
[2025-09-02 03:59] VITALS: BP 95/52; PULSE 71; RESP 16; TEMP 37.1; O2SAT 90
[2025-09-02 07:42] VITALS: BP 123/59; PULSE 72; RESP 20; TEMP 37.1; O2SAT 94
[2025-09-02] MEDS: 0.9 % Sodium Chloride Flush 3 ML SYRINGE IVFLUSH (08:48)
[2025-09-02] MEDS: Thiamine HCL 100 MG in 0.9 % Sodium Chloride 100 ML 202 MG IV (08:49)
[2025-09-02 11:40] VITALS: BP 102/55; PULSE 80; RESP 20; TEMP 37.6; O2SAT 94
--- NOTE | 2025-09-02 16:29 | PM.DS ---
DS: Providers Provider Date of Service: 09/02/25 Date of admission: 08/31/25 04:49 Date of discharge: 09/02/25 Primary care physician: Unknown Physician DS: Diagnosis Discharge Diagnosis (1) Alcohol use disorder, severe, dependence: Status: Acute (2) Acute hypoxic respiratory failure: Status: Acute DS: Summary Hospital Course Hospital Course: From admission HPI: Date of Service: 08/31/25 Attending physician on admission: Lico Mayo Chief Complaint: Alcohol intoxication Charbel Delgado is a 55 years old man with past medical history significant for multiple hospitalizations, liver cirrhosis, ongoing alcohol abuse and chronic pancytopenia and homeless who was brought to the emergency department EMS due to ETOH intoxication. Per triage note patient was found sleeping on a porch by PD and was in court for trespassing last week. The patient denied chest pain, shortness on breath or cough. He did not report any acute gastrointestinal genitourinary symptoms. Last alcoholic drink last night 19:00. In the ED, he was found to have stable vital signs. Per ED provider patient's O2 sats dropped to high 80s and is currently on 4 L/min supplemental oxygen via nasal cannula. Blood workup was basically unremarkable except for lactic acidosis of 3.7 that already normalized normalized. Pro BNP is normal. ETOH level is 55. CXR showed pulmonary vascular congestion and left basilar artery stasis/pneumonia. ED tx: Ceftriaxone 1 g IV, doxycycline 1 g IV, NS 1 L bolus, phenobarbital protocol started Hospital course: Pt was admitted to the hospital for acute hypoxic respiratory failure secondary to pneumonia vs atelectasis. Pt was treated with empiric Zosyn for 3 days due to aspiration concerns as pt was initially brought to the ED by the police department after being found sleeping on a porch. Pt was also treated with phenobarb protocol for concerns of impending alcohol withdrawal. Earlier today pt was seen during rounds and complained of feeling weak, tired, and not sleeping well. Shortness of the breath and cough. Around baseline. pt was still on supplemental oxygen. Was notified by nursing at approximately 15:30 that pt was no longer in his room and had eloped from the hospital. Nursing conducted a search of the room, floor, and even in the hospital lobby, but pt was no where to be found. Police department was notified as pt still likely had an IV in him. Of note, pt is well known to the hospital and this is the patient's 4th hospitalization in the past 2 months; he has been known to abscond from the hospital before. Time Attestation Discharge Coordination Time (in mins): 35 Quality: Safe Use of Opioids Does Pt have an Active Cancer Diagnosis on the Problem List?: No Quality: Stroke Does the patient have a stroke diagnosis?: No Physical Exam Exam: Exam: Pt eloped from the hospital AMA Vital Signs: Vital Signs: Last Vital Signs Temp 99.6 F 09/02/25 11:40 Pulse 80 09/02/25 11:40 Resp 20 09/02/25 11:40 BP 102/55 L 09/02/25 11:40 Pulse Ox 94 09/02/25 11:40 O2 Del Method Nasal Cannula 09/02/25 11:40 O2 Flow Rate 4 09/02/25 11:40 Oxygen Flow Rate 3 08/30/25 21:03 BMI result Body Mass Index 21.7 DS: Data Data Completed and Pending Completed studies during hospitalization [Text1]: Procedures Control Bleeding in Gastrointestinal Tract, Via Natural or Artificial Opening Endoscopic (08/29/23) Control Bleeding in Nasal Mucosa and Soft Tissue, Via Natural or Artificial Opening (11/29/24) Detoxification Services for Substance Abuse Treatment (06/19/25) Drainage of Peritoneal Cavity, Percutaneous Approach (10/21/24) Excision of Ascending Colon, Via Natural or Artificial Opening Endoscopic, Diagnostic (08/03/23) Excision of Descending Colon, Via Natural or Artificial Opening Endoscopic, Diagnostic (08/03/23) Insertion of Infusion Device into Upper Vein, Percutaneous Approach (08/29/23) Introduction of Mineral-based Topical Hemostatic Agent into Lower GI, Via Natural or Artificial Opening Endoscopic, [employer] (08/03/23) Introduction of Mineral-based Topical Hemostatic Agent into Upper GI, Via Natural or Artificial Opening Endoscopic, [employer] (08/29/23) Occlusion of Esophageal Vein with Extraluminal Device, Via Natural or Artificial Opening Endoscopic (11/29/24) Occlusion of Esophageal Vein, Via Natural or Artificial Opening Endoscopic (01/22/24) Transfusion of Nonautologous Plasma Cryoprecipitate into Peripheral Vein, Percutaneous Approach (08/03/23) Transfusion of Nonautologous Platelets into Peripheral Vein, Percutaneous Approach (11/29/24) Transfusion of Nonautologous Red Blood Cells into Peripheral Vein, Percutaneous Approach (11/29/24) Labs on day of discharge: Preliminary micro results at discharge 08/31/25 00:19 Blood Culture - Preliminary Blood - Venous No growth after 48 hours. 08/31/25 00:19 Blood Culture - Preliminary Blood - Venous No growth after 48 hours. Discharge Plan Discharge Anticipated Discharge Date/Time: 09/02/25 16:09 Patient Disposition: Left Against Medical Advice Discharge Diagnosis: Acute hypoxic respiratory failure in the setting of pneumonia vs atelectasis Referrals: Physician,Unknown J [Primary Care Provider, Medical] - 1 Week Discharge Medications: No Action naltrexone 50 mg Tablet 50 mg PO DAILY Qty: 30 0RF magnesium oxide 400 mg (241.3 mg magnesium) Tablet 400 mg PO DAILY Qty: 30 0RF folic acid 1 mg Tablet 1 mg PO DAILY Qty: 30 0RF thiamine mononitrate (vit B1) 100 mg Tablet 100 mg PO DAILY Qty: 30 0RF albuterol sulfate [Ventolin HFA] 90 mcg/actuation HFA aerosol inhaler 2 puff inhalation Q4-6H PRN (Reason: shortness of breath or wheezing) Qty: 8.5 0RF Discharge Orders: Discharge Order (Routine); Ordered 09/02/25 Ordered By: Christian Booth Print Language: Estonian Care Plan Goals: See below Health Concerns: Acute hypoxic respiratory failure Pneumonia Alcohol esophagitis Alcohol use disorder Alcohol withdrawal Plan of Treatment: Pt was admitted to the hospital for acute hypoxic respiratory failure secondary to pneumonia vs atelectasis. Pt was treated with empiric Zosyn for 3 days due to aspiration concerns as pt was initially brought to the ED by the police department after being found sleeping on a porch. Pt was also treated with phenobarb protocol for concerns of impending alcohol withdrawal. Earlier today pt was seen during rounds and complained of feeling weak, tired, and not sleeping well. Shortness of the breath and cough. Around baseline. pt was still on supplemental oxygen. Was notified by nursing at approximately 15:30 that pt was no longer in his room and had eloped from the hospital. Nursing conducted a search of the room, floor, and even in the hospital lobby, but pt was no where to be found. Police department was notified as pt still likely had an IV in him. Of note, pt is well known to the hospital and this is the patient's 4th hospitalization in the past 2 months; he has been known to abscond from the hospital before. Assessment: See discharge summary Discharge Date/Time: 09/02/25 15:30
--- NOTE | 2025-09-05 07:19 | P.CDIM_ITS ---
PROVIDER RESPONSE TEXT: To clarify, the appropriate diagnosis supported by the clinical indicators: Hypomagnesemia: acute on chronic QUERY TEXT: PHYSICIAN'S DOCUMENTATION REQUEST Date of Query: 09/02/2025 05:35 AM EDT Patient Name: Charbel Delgado Admit Date: 08/31/2025 Dear Christian WALLACE, A review of the medical record indicates additional documentation may be needed. Please review below and update the documentation accordingly. Clinical Indicators: LABS: Magnesium 1.4 L IV Magnesium Sulfate Based on the above, is there a diagnosis that correlates with these findings? Hypomagnesemia possible, probable, suspected, etc. Labs indicate a diagnosis of (please specify) Other (explain) Clinically unable to determine (explain) Thank you, Rina Gutierrez, CCS, CDIS Use of terms such as suspected, likely, concern for, or probable (associated with a specific diagnosis that is being evaluated, monitored, or treated as if it exists) are acceptable and can be coded in the inpatient setting, when documented at the time of discharge. Please use your independent medical judgment in providing your response. THIS QUERY IS PART OF THE PERMANENT MEDICAL RECORD
== END 2025-09-02 15:30 | disposition left against medical advice (07) | DRG 139 ==
LOC: HO.ED 08-31 02:20 → HO.EDOVER 08-31 04:54 → HO.IMC 09-01 07:30
PROVIDERS: Nurse Practitioner Family; Student in an Organized Health Care Education/Training Program; Admitting Provider Internal Medicine; Emergency Provider Emergency Medicine; Visit Provider Student in an Organized Health Care Education/Training Program
DX: J18.9 Pneumonia, unspecified organism (principal); J96.01 Acute respiratory failure with hypoxia; D61.818 Other pancytopenia; E83.42 Hypomagnesemia; K70.30 Alcoholic cirrhosis of liver without ascites; K20.80 Other esophagitis without bleeding; F10.239 Alcohol dependence with withdrawal, unspecified; F10.229 Alcohol dependence with intoxication, unspecified; Z59.02 Unsheltered homelessness; Z20.822 Contact with and (suspected) exposure to COVID-19; Y90.2 Blood alcohol level of 40-59 mg/100 ml; J98.11 Atelectasis; E87.1 Hypo-osmolality and hyponatremia; Z91.148 Patient's other noncompliance with medication regimen for other reason; Z79.899 Other long term (current) drug therapy
CPT/HCPCS: 36415; 71046; 71275; 80048; 80053; 80307; 82140; 83605; 83735; 83880; 84484; 85025; 87040; 87502; 87635; 93005; 99285; J0696; J1271; J1885; J2543; J2560; J3411; J3475; Q9967

== ENCOUNTER → 2025-08-30 22:44 | Outpatient (BNV) | payer MEDICAID, SELFPAY | PROVIDERS: Emergency Provider Emergency Medicine; Visit Provider Radiology Diagnostic Radiology | DX: R09.89 Other specified symptoms and signs involving the circulatory and respiratory systems (principal) | CPT/HCPCS: 71046 ==

== ENCOUNTER → 2025-08-30 23:41 | Outpatient (BNV) | payer MEDICAID, SELFPAY | PROVIDERS: Admitting Provider Internal Medicine; Emergency Provider Emergency Medicine; Visit Provider Internal Medicine Cardiovascular Disease | DX: R09.02 Hypoxemia (principal) | CPT/HCPCS: 93010 ==

== ENCOUNTER → 2025-08-31 02:41 | Outpatient (BNV) | payer MEDICAID, SELFPAY | PROVIDERS: Admitting Provider Internal Medicine; Emergency Provider Emergency Medicine; Visit Provider Radiology Vascular & Interventional Radiology | DX: J98.11 Atelectasis (principal) | CPT/HCPCS: 71275 ==

== ENCOUNTER → 2025-08-31 04:49 | Outpatient (BNV) | payer MEDICAID, SELFPAY | PROVIDERS: Admitting Provider Internal Medicine; Emergency Provider Emergency Medicine; Visit Provider Internal Medicine | DX: F10.20 Alcohol dependence, uncomplicated (principal); J96.01 Acute respiratory failure with hypoxia | CPT/HCPCS: 99223; 99233; 99499 ==

== ENCOUNTER 2025-09-03 10:43 | Inpatient (IN) | payer MEDICAID, SELFPAY ==
[2025-09-03] VITALS (10 sets, daily range): BP systolic 84–122; BP diastolic 47–64; PULSE 70–83; RESP 14–20; TEMP 36.9–37.3; O2SAT 70–96; BMI 20.2
--- NOTE | ~2025-09-03 | XR_ITS ---
EXAMINATION: XR CHEST CLINICAL INFORMATION: Hypoxia and back pain. COMPARISON: 08/30/2025 TECHNIQUE: 2 views of the chest were obtained. FINDINGS: Mild cardiac enlargement suspected. Vascular congestion in the hilar regions. Mediastinal contours appear normal. Lungs demonstrate hazy interstitial markings bilaterally with subtle Gregory B lines in the lung bases suggestive of interstitial pulmonary edema/CHF. There is no focal consolidation. There is no pneumothorax or pleural effusion. There is no focal osseous or soft tissue abnormality. There is a midthoracic severe compression deformity. XR/XR chest 2V IMPRESSION: 1. Moderate interstitial pulmonary edema. No focal pneumonia. No effusions. Electronically signed by: David Wang MD 09/03/2025 12:31 PM EDT
--- NOTE | 2025-09-03 11:12 | ED.GENADULT ---
HPI - General Adult General Chief complaint: General Medical Stated complaint: BACK/BLE PAIN PER EMS Time Seen by Provider: 09/03/25 11:46 History of Present Illness ED Provider: Marty VIVAR narrative: The patient is a 55-year-old male with a history of alcoholism and homelessness who is a frequent visitor to the emergency room. The patient says that he asked a bystander to call an ambulance today because he was having pain in his upper back that he felt radiating to both of his shoulders. He does not know what time this started but he estimates it was about half an hour before he asked the person to call an ambulance. He says that the pain was the kind of pain that you might feel if you had done a lot of weightlifting or if you were carrying something heavy on your back. He says he has not had this kind of pain before. He says it was not really worse with taking a deep breath. It did not radiate to his neck or his head. At the time that I was interviewing him he says that he was no longer having the pain. He says that he felt better lying down on a stretcher. He denies any significant cough. No definite fever, sweats, chills, no shaking chills, no abdominal pain, no nausea or vomiting. The patient was recently hospitalized. He was brought to the hospital 4 days ago on Monday evening August 30. He was short of breath and hypoxic as he often is. He was admitted with a questionable diagnosis of pneumonia versus atelectasis. He was put on antibiotics. In the hospital he was also treated with phenobarbital for concerned about impending alcohol withdrawal. The patient eloped from the hospital yesterday without formal discharge. Therefore he was not discharged with the antibiotics or any other prescriptions. His recent hospitalization was the 4th hospitalization in the last 2 months. He has been known to eloped from the medical service in the past as well. Related Data Home Medications ?Medication ?Instructions ?Recorded ?Confirmed No Known Home Meds 09/03/25 09/03/25 Allergies Allergy/AdvReac Type Severity Reaction Status Date / Time No Known Allergies (No Known Allergy Verified 09/03/25 11:15 Allergies*) Review of Systems Review of Systems: Yes all other systems are reviewed and are negative PMFSH Past Medical History Medical History Pancytopenia Cirrhosis Hypomagnesemia Aspiration pneumonia Alcohol use disorder CHF (congestive heart failure) Alcohol abuse Acute hypoxemic respiratory failure Anemia Pneumonia Alcohol withdrawal syndrome Alcohol abuse Thrombocytopenia Esophageal varices Acute on chronic anemia Alcoholic liver disease Thrombocytopenia Malnutrition CHF (congestive heart failure) Anemia Thrombocytopenia Acute on chronic anemia CHF (congestive heart failure) Anemia Alcohol abuse Surgical History No history of previous surgery Social History Social History Household Members: None Household Members Other:: homeless Housing: Homeless Housing Other:: homeless Do you presently have visiting nurse or other home services: No Alcohol intake: current Alcohol intake frequency: 3 or more drinks per day Alcohol type: beer and hard liquor Comment: pt refuse to have staff remain in BR Patient Tobacco Use Status: Former Tobacco user Tobacco use type: Cigarette Second Hand Smoke Exposure: No Advance Directives: Yes Advance Directives on File: Yes Advance Directives Date on File: 07/13/23 service: No Physical Exam ED Vital Signs: Vital Signs - 24 hr 09/03/25 11:12 09/03/25 12:07 09/03/25 12:33 Temperature 98.6 F 98.5 F Pulse Rate 80 70 Respiratory Rate 18 14 Blood Pressure 84/49 L 111/49 L Pulse Oximetry 82 L 96 Oxygen Delivery Method Room Air Nasal Cannula Oxygen Flow Rate 4 09/03/25 13:50 09/03/25 15:20 09/03/25 15:53 Temperature 98.5 F Pulse Rate 78 75 Respiratory Rate 20 18 Blood Pressure 114/60 104/47 L Pulse Oximetry 85 L 70 L 95 Oxygen Delivery Method Nasal Cannula Room Air Nasal Cannula Oxygen Flow Rate 3 4 BMI result Body Mass Index 20.2 Const Other: The patient was awake and alert. He is a frail looking 55-year-old who looks chronically ill and older than his age. He was on nasal oxygen because his oxygen saturation on arrival on room air has been 82%. He did not appear obviously uncomfortable or short of breath on nasal oxygen. HENMT Other: The face is symmetrical. ?Mucous membranes moist. The patient has poor dentition. Eyes Other: Pupils are round equal, conjunctivae are clear, extraocular movements intact Neck Other: No germaine JVD Resp Other: No increased work of breathing. Breath sounds are fairly clear bilaterally. No germaine crackles or wheezes. Cardio Rate: regular rate Rhythm: regular rhythm Heart sounds: S1 normal heart sound present and S2 normal heart sound present GI Other: Abdomen is soft and nontender Skin Other: The skin is dry and unremarkable Neuro Other: The patient is awake and alert. He seems quite frail. His cranial nerves are grossly intact. He moves his extremities symmetrically. No obvious lateralizing signs. Extrem Other: The patient has a mild peripheral edema, no germaine asymmetry to the extremities Course Course Course Narrative: This is a Rapid Medical Examination (RME) performed by Ryan Liao PA-C in triage. Full HPI, ROS, assessment and treatment plan per primary provider in the Main ED. Hx: 55 yo M hx of alcohol abuse, hypoxia, CHF, end-stage liver cirrhosis, chronic thrombocytopenia, dependent edema, recurring pneumonia BIBA for eval of upper back pain that began while he was walking around today. no injury/trauma/falls. Recent pneumonia, left AMA yesterday. 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 Medications Administered Discontinued Medications Generic Name Dose Route Start Last Admin Trade Name Freq PRN Reason Stop Dose Admin Furosemide 20 mg 09/03/25 13:15 09/03/25 13:45 Furosemide 20 Mg/2 Ml Vial IVPUSH 09/03/25 13:16 20 mg ONCE ONE Administration Protocol Medical Decision Making Medical Decision Making [facility] Narrative: The patient is a 55-year-old male who returns to the hospital after eloping from the medical floor yesterday. The patient is homeless. He is a chronic alcoholic. He has been doing poorly over the last several months with frequent emergency room visits. He is often found to be hypoxic. He was hospitalized 3 days ago for weakness and shortness of breath. A presumptive diagnosis of pneumonia was made and he was on antibiotics. He eloped from the hospital yesterday. He returns today. He was complaining of upper back pain. This seems to be positional. He does not have pain at rest. Overall he seems to be presenting in a manner similar to multiple recent presentations. I do not have a high suspicion for an acute infectious component to his presentation today. Labs including a lactic acid and blood cultures had been ordered prior to my evaluation and his lactic acid came back at 2.6. My suspicion is that this lactic acid elevation is not an indicator of sepsis. He does not have a fever. He has not tachycardic. His white blood count is 4.1. He has no left shift on his differential. He is 66.9% neutrophils. His CRP is 0.74. With a all these data I think an infectious component is unlikely. The patient has significant alcoholism and I suspect he has underlying liver disease and I think this is the likely explanation for his elevated lactic acid. The patient had a chest x-ray (his oxygen saturations were in the 80s) and the chest x-ray was read as ?moderate interstitial pulmonary edema. No focal pneumonia. No effusions. On this basis the patient has was given a dose of IV furosemide. Overall the patient looks extremely frail and, when I ambulated him without oxygen his oxygen saturations were in the mid 70s. I do not feel he would be appropriate for discharge back to the streets. I consulted the hospitalists for readmission to the hospital. Lab Data 09/03/25 11:54 09/03/25 11:54 Labs: Lab Results 09/03/25 09/03/25 Range/Units 11:54 14:15 WBC 4.1 L (4.8-10.8) X10*3/uL RBC 3.42 L (4.60-5.80) X10*6/uL Hgb 10.4 L (14.0-18.0) g/dl Hct 33.3 L (42.0-52.0) % MCV 97.4 (80.0-98.0) fL MCH 30.4 (27.0-33.0) pg MCHC 31.2 (31.0-36.0) g/dl RDW 17.4 H (11.0-16.0) % Plt Count 59 L (160-400) X10*3/uL MPV 12.1 (9.4-12.4) fL Immature Gran % (Auto) 1.2 H (0.0-0.4) % Neut % (Auto) 66.9 (45-73) % Lymph % (Auto) 14.5 L (20-40) % [place] % (Auto) 14.0 H (2-11) % Eos % (Auto) 2.2 (0-4) % Baso % (Auto) 1.2 (0-2) % Lymph # (Auto) 0.6 L (1.2-4.9) X10*3/uL [place] # (Auto) 0.6 (0.1-1.2) X10*3/uL Eos # (Auto) 0.1 (0.0-0.4) X10*3/uL Baso # (Auto) 0.1 (0.0-0.2) X10*3/uL Abs Immat Gran (auto) 0.05 H (0.00-0.03) X10*3/uL Absolute Neuts (auto) 2.8 (2.0-8.3) x10*3/uL Absolute Nucleated RBC 0.000 (0.0-0.012) X10*3/uL Nucleated RBC % (auto) 0.0 (0.0-0.2) /100WBC Hold Purple Top SEE NOTE Hold Blue Top SEE NOTE Sodium 134 L (135-145) mmol/L Potassium 4.2 (3.3-5.1) mmol/L Chloride 109 H (96-108) mmol/L Carbon Dioxide 19 L (22-29) mmol/L Anion Gap 10 L (12-20) BUN 14 (9-16) mg/dL Creatinine 0.92 (0.5-1.4) mg/dL Estim Creat Clear Calc 71.9 Estimated GFR > 60 Random Glucose 81 (60-115) mg/dL Lactic Acid 2.6 H* (0.5-2.0) mmol/L Lactic Acid F/U @ 2Hr 1.8 (0.5-2.0) mmol/L Calcium 8.6 (8.4-10.2) mg/dL Magnesium 1.7 (1.6-2.6) mg/dL Total Bilirubin 0.5 (0.0-1.0) mg/dL AST 40 H (5-37) U/L ALT 8 (0-40) U/L Alkaline Phosphatase 95 (39-117) U/L Troponin I High Sens < 2.7 < 2.7 (<3.5-35.0) ng/L C-Reactive Protein 0.74 H (< or = 0.50) mg/dL NT-Pro-B Natriuret Pep 166.0 (<300) pg/mL Total Protein 7.7 (6.5-8.0) g/dL Albumin 3.4 L (3.5-5.0) g/dL Lipase 25 (8-78) U/L Ethyl Alcohol 67 mg/dL Independent Interpretation I performed an independent interpretation of an: EKG Interpretation: EKG at 12:02 shows normal sinus rhythm at 77 beats per minute. I feel it is a normal EKG. No definite acute ischemic changes. Discharge Plan Discharge Clinical Impression: Weakness, Hypoxia, Alcoholism, Homelessness Patient Disposition: Admitted As Inpatient
--- NOTE | 2025-09-03 11:18 | ECG_ITS ---
Test Reason : hypoxic Blood Pressure : */* mmHG Vent. Rate : 77 BPM Atrial Rate : 77 BPM P-R Int : 148 ms QRS Dur : 76 ms QT Int : 412 ms P-R-T Axes : 79 -3 2 degrees QTcB Int : 466 ms Normal sinus rhythm Normal ECG When compared with ECG of 31-Aug-2025 00:42, Inverted T waves have replaced nonspecific T wave abnormality in Inferior leads Referred By: Johanna Liao Electronically Signed By: STEPHANIE JARA MD
[2025-09-03 12:05] LABS: MANUAL DIFF FLAG NO
[2025-09-03 12:17] LABS: Hematocrit 33.3 % (42.0-52.0); Hemoglobin 10.4 g/dl (14.0-18.0); Imm Gran Abs Auto 0.05 X10*3/uL (0.00-0.03); Imm Gran Pct Auto 1.2 % (0.0-0.4); Lymphocytes Absolute Auto 0.6 X10*3/uL (1.2-4.9); Mean Corpuscular HGB Conc 31.2 g/dl (31.0-36.0); Mean Corpuscular Hemoglobin 30.4 pg (27.0-33.0); Mean Corpuscular Volume 97.4 fL (80.0-98.0); NRBC Abs Auto 0.000 X10*3/uL (0.0-0.012); NRBC Pct Auto 0.0 /100WBC (0.0-0.2); Platelet Count 59 X10*3/uL (160-400); Red Blood Count 3.42 X10*6/uL (4.60-5.80); White Blood Count 4.1 X10*3/uL (4.8-10.8)
--- NOTE | 2025-09-03 12:19 | PC.NURSE ---
patient presented via ems for back pain, states he feels as of his back is burning patient states he woke up and noticed the pain. patient is awake, alert and oriented to baseline, states he drank a couple beers and a pint of liquor [employer]. patient recently AMA from inpatient medical unit upstairs, noted to have IV still in place in RFA, this IV was removed and a new one was placed in the LFA#20. patient noted to have bilat lower extrem swelling, right is worse than the left, mild pitting. patient changed into hospital attire and moved into room 1 for work up.
[2025-09-03 12:26] LABS: Alanine Aminotransferase 8 U/L (0-40); Albumin Level 3.4 g/dL (3.5-5.0); Alkaline Phosphatase 95 U/L (39-117); Anion Gap 10 (12-20); Aspartate Amino Transferase 40 U/L (5-37); Blood Urea Nitrogen 14 mg/dL (9-16); Calcium 8.6 mg/dL (8.4-10.2); Carbon Dioxide 19 mmol/L (22-29); Chloride 109 mmol/L (96-108); Creatinine Clr Calc Pharmacy 71.9; Estimated Glomerular Filt Rate > 60; Lipase 25 U/L (8-78); Magnesium 1.7 mg/dL (1.6-2.6); Potassium 4.2 mmol/L (3.3-5.1); Sodium 134 mmol/L (135-145); Total Protein 7.7 g/dL (6.5-8.0)
[2025-09-03 12:29] LABS: NT Pro B Type Natriuretic Pept 166.0 pg/mL (<300)
[2025-09-03 12:31] LABS: Troponin-I High Sensitivity < 2.7 ng/L (<3.5-35.0)
[2025-09-03] MEDS: Furosemide 20 MG/2 ML VIAL IVPUSH (13:45)
[2025-09-03 14:00] LABS: Reflex Lactate? Lactic Acid Added
[2025-09-03 14:39] LABS: ~Lactic Acid-LAB USE ONLY 1.8 mmol/L (0.5-2.0)
[2025-09-03 14:43] LABS: Troponin-I High Sensitivity < 2.7 ng/L (<3.5-35.0)
--- NOTE | 2025-09-03 15:20 | PC.NURSE ---
patient noted to be satting 70% on the monitor, went to evaluate patient and DR Ferguson ambulated patient without o2, patient took about 5 steps with his cane and desat down to 70% on room air. patient eventually recovered to 90% on 4lNC with rest and breathing coaching
--- NOTE | 2025-09-03 16:14 | PHA.MEDREC ---
Addendum entered by Fabio Deras RPh 09/03/25 16:18: Reviewed by [facility] Original Note: Pharmacy Consult ? Medication Reconciliation Pharmacy has completed the medication reconciliation. Spoke with pt and he states he is not taking any medications at this time, stating he lost them a while ago .
--- NOTE | 2025-09-03 17:26 | HO.NURTONUR ---
Charbel is a 55 M who presented to the ED with back pain that radiated to his bilat shoulders. patient was recently admitted for hypoxia and pneumonia, patient eloped from inpatient medical unit. patient found to be hypoxic in the ED upon triage, placed on 3lNC and recovered. IV accessin the LFA #20, patient had IV from prior admission which was removed. patient attempted ambulation trial with his can, took a couple steps and sat dropped to 70% on room air. patient was placed back on 4l NC and recovered after breathing coaching and rest. patient given 20mg IVP per MAR. patient is alert and oriented x3, uses bedside urinal. patient is well known to [facility], etoh use, drank 2 beers and a pint of liquir prior to arrival. patient had visit with pastor Johnson, states that he will not leave / elope again. patient has been quiet and pleasant.
--- NOTE | 2025-09-03 19:36 | P.HPHOSP_ITS ---
History of Present Illness Date of Service: 09/03/25 Attending physician on admission: [facility] Chief Complaint: Back pain Pt is a 55-year-old male with a PMH significant for liver cirrhosis, ongoing alcohol abuse, chronic pancytopenia, multiple hospitalizations, and chronic homelessness who presented to the ED reporting upper back pain and blister on his right foot that has caused him to limp while walking. Pt had just eloped from the hospital the prior day after being admitted for acute hypoxic respiratory failure secondary to pneumonia vs atelectasis. Pt was initially treated with empiric Zosyn for 3 days due to aspiration concerns as he was initially brought to the ED by the police department after being found sleeping on a porch. Pt then eloped AMA after 3 days as he said he did not know why he was in the hospital and wanted to go home. Pt reports earlier today his back was ?kicking? 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 He then asked someone to call an ambulance to bring up to the ED. Pt denies any trauma to the area or recent fall. Currently pt is seen resting comfortably in bed. States back pain feels much better, though has not been moving or trying to pick up operator vitals. Denies difficulty breathing, SOB, or any cough. No lower extremity weakness or edema. Denies fever or chills. Pt reports that he was only able to drink a few beers and maybe a couple of nips which is below his baseline, but that was all he was able to find. Workup in the ED was significant for moderate interstitial pulmonary edema without focal pneumonia or effusions. BNP WNL at 166. Serial troponins negative. Sodium 133, lactic acid 2.6 with repeat 1.8. Pt was treated with furosemide 20 mg IV push. During ambulation trial pt was noted to be weak and with ataxic gait, and pt desatted to 70% on RA. Pt will be admitted to the hospital for acute on chronic hypoxic respiratory in the setting of possible pulmonary edema. Review of Systems 2 Review of Systems: Negative except for that which is stated in the HPI. [facility] Medical History Pancytopenia Cirrhosis Hypomagnesemia Aspiration pneumonia Alcohol use disorder CHF (congestive heart failure) Alcohol abuse Acute hypoxemic respiratory failure Anemia Pneumonia Alcohol withdrawal syndrome Alcohol abuse Thrombocytopenia Esophageal varices Acute on chronic anemia Alcoholic liver disease Thrombocytopenia Malnutrition CHF (congestive heart failure) Anemia Thrombocytopenia Acute on chronic anemia CHF (congestive heart failure) Anemia Alcohol abuse Surgical History No history of previous surgery Social History Household Members: None Household Members Other:: homeless Housing: Homeless Housing Other:: homeless Do you presently have visiting nurse or other home services: No Alcohol intake: current Alcohol intake frequency: 3 or more drinks per day Alcohol type: beer and hard liquor Comment: pt refuse to have staff remain in [place] Patient Tobacco Use Status: Former Tobacco user Tobacco use type: Cigarette Second Hand Smoke Exposure: No Have you been hit, kicked, punched, or otherwise hurt by someone within the past year? If so, by whom?: No Do you feel safe in your current relationship?: No Current Relationship Is there a partner from a previous relationship who is making you feel unsafe now?: No Are you made to feel afraid or neglected: No Advance Directives: Yes Advance Directives on File: Yes Advance Directives Date on File: 07/13/23 Do you have a plan to hurt others: No Plan Recently lost weight without trying: Unsure Nutrition Risks: No Nutritional Risk service: No Meds Allergies Allergy/AdvReac Type Severity Reaction Status Date / Time No Known Allergies (No Known Allergy Verified 09/03/25 11:15 Allergies*) Active Medications: Current Medications Acetaminophen (Acetaminophen 325 Mg Tablet) 650 mg PO Q6H PRN PRN Reason: Pain, Mild 1-3,fever,headache Calcium Carbonate (Calcium Carbonate 750 Mg Tab.Chew) 750 mg PO Q4H PRN PRN Reason: Heartburn Furosemide (Furosemide 20 Mg/2 Ml Vial) 20 mg IVPUSH DAILY [facility]; Protocol Magnesium Hydroxide (Milk Of Magnesia 30 Ml Oral.Susp) 30 ml PO DAILY PRN PRN Reason: Constipation Melatonin (Melatonin 3 Mg Tablet) 6 mg PO BEDTIME PRN PRN Reason: Insomnia Ondansetron HCl (Ondansetron Hcl 4 Mg/2 Ml Vial) 4 mg IVPUSH Q8H PRN PRN Reason: Nausea and Vomiting Pharmacy Consult (Consult Rx Etoh Phenob Im/Po) 1 each MISCELLANE ONCE PRN; Protocol PRN Reason: Consult order Phenobarbital (Phenobarbital 15 Mg Tablet) 45 mg PO BID [facility]; Protocol Stop: 09/05/25 21:01 Phenobarbital (Phenobarbital 15 Mg Tablet) 15 mg PO BID [facility]; Protocol Stop: 09/07/25 21:01 Phenobarbital (Phenobarbital 15 Mg Tablet) 15 mg PO DAILY [facility]; Protocol Stop: 09/09/25 09:01 Phenobarbital Sodium (Phenobarbital Sodium 130 Mg/Ml Im Once) 181 mg IM ONCE ONE; Protocol Stop: 09/03/25 20:01 Phenobarbital Sodium (Phenobarbital Sodium 130 Mg/Ml Vial Im Q3hx2) 163 mg IM Q3H [facility]; Protocol Stop: 09/04/25 02:01 Sodium Chloride (0.9 % Sodium Chloride Flush 3 Ml Syringe) 3 ml IVFLUSH QSHIFT [facility] Home Medications ?Medication ?Instructions ?Recorded ?Confirmed ?Last Taken ?Type No Known Home Meds 09/03/25 09/03/25 Un known History Physical Exam 2 Vital Signs and Narrative: Vital Signs: Last Vital Signs Temp 98.7 F 09/03/25 18:57 Pulse 75 09/03/25 18:57 Resp 18 09/03/25 18:57 BP 107/53 L 09/03/25 18:57 Pulse Ox 94 09/03/25 18:57 O2 Del Method Nasal Cannula 09/03/25 18:57 O2 Flow Rate 2 09/03/25 18:57 BMI result Body Mass Index 20.2 General: AOx3, no acute distress. Disheveled, frail looking Resp: CTA bilaterally CVS: S1, S2, RRR Back: No significant spinal or paraspinal tenderness GI: +BS, NT, no distention Skin: Warm, dry Neuro: Cranial nerves II-XII grossly intact bilaterally. Motor grossly intact bilaterally Extremities: No edema Psych: Appropriate affect Results Labs 09/03/25 11:54 09/03/25 11:54 Labs: Laboratory Results - last 24 hr 09/03/25 09/03/25 11:54 14:15 MCV 97.4 MCH 30.4 MCHC 31.2 RDW 17.4 H Plt Count 59 L MPV 12.1 Immature Gran % (Auto) 1.2 H Neut % (Auto) 66.9 Lymph % (Auto) 14.5 L Mower % (Auto) 14.0 H Eos % (Auto) 2.2 Baso % (Auto) 1.2 Lymph # (Auto) 0.6 L Mower # (Auto) 0.6 Eos # (Auto) 0.1 Baso # (Auto) 0.1 Abs Immat Gran (auto) 0.05 H Absolute Neuts (auto) 2.8 Absolute Nucleated RBC 0.000 Nucleated RBC % (auto) 0.0 Hold Purple Top SEE NOTE Hold Blue Top SEE NOTE Anion Gap 10 L Estim Creat Clear Calc 71.9 Estimated GFR > 60 Random Glucose 81 Lactic Acid 2.6 H* Lactic Acid F/U @ 2Hr 1.8 Calcium 8.6 Magnesium 1.7 Total Bilirubin 0.5 AST 40 H ALT 8 Alkaline Phosphatase 95 Troponin I High Sens < 2.7 < 2.7 C-Reactive Protein 0.74 H NT-Pro-B Natriuret Pep 166.0 Total Protein 7.7 Albumin 3.4 L Lipase 25 Ethyl Alcohol 67 Imaging Radiologist's Impressions: Impressions Chest X-Ray 09/03/25 12:15 IMPRESSION: 1. Moderate interstitial pulmonary edema. No focal pneumonia. No effusions. Electronically signed by: David Wang MD 09/03/2025 12:31 PM EDT RP Assessment and Plan (1) Acute hypoxic respiratory failure: Status: Acute Plan Pt is a 55-year-old male with a PMH significant for liver cirrhosis, ongoing alcohol abuse, chronic pancytopenia, multiple hospitalizations, and chronic homelessness who presented to the ED reporting upper back pain and blister on his right foot that has caused him to limp while walking. Pt will be admitted to the hospital for acute on chronic hypoxic respiratory in the setting of possible pulmonary edema. Acute on chronic hypoxic respiratory failure in the setting of possible pulmonary edema Pt previously admitted 3 days prior for possible pneumonia vs atelectasis Pt was treated with empiric Zosyn x3 days No cough, fever, shortness breath, or difficulty breathing; no indication to continue antibiotics at this time BNP WNL; echocardiogram on 05/26/2025 essentially normal without evidence of CHF; no indication for repeat echo at this time Pt given Lasix 20 mg IV in the ED We will give additional Lasix 20 mg IV x1 in the a.m. Supplemental oxygen >92, wean as tolerated Pt has been intermittently hypoxic multiple times since at least 2022 Pt qualified for for 2 L at rest and 4 L with ambulation from prior home O2 evaluation on 08/18/2025 Pt refuses home oxygen due to being homeless and refusing to go to a correction Encourage incentive spirometry Encouraged pt to be discharged to a correction for supplemental oxygen Back pain Likely secondary to back strain Pt currently reports feels well with back pain resolved Monitoring Question of alcohol esophagitis As seen on previous CT F/U outpatient for possible EGD Alcohol use disorder Pt with long hx of chronic alcohol use and chronic alcohol withdrawal Will initiate empiric phenobarbital protocol CIWA Thiamine, folic acid and multivitamins. Alcoholic liver cirrhosis with history of esophageal varices and pancytopenia At baseline No evidence of acute bleeding Continue to monitor Acute lactic acidosis, resolved Due to liver failure and alcohol intoxication. Code status: Full DVT prophylaxis: SCDs (pharmacological VTE prophylaxis contraindicated due to thrombocytopenia). Attending: Dr. Nguyen Pt will require at least a 2 night stay in the hospital due to acute on chronic hypoxic respiratory failure in the setting of continued alcohol use and medication noncompliance in the community. Pt will require supplemental oxygen as well as phenobarb protocol for likely alcohol withdrawal. Quality Stroke Does the patient have a stroke diagnosis?: No VTE Prior VTE?: No VTE Risk Level:: Medical - moderate - high VTE Device Contraindication: N/A - Device Ordered VTE Drug Contraindication: Treatment Not Indicated
[2025-09-03] MEDS: PHENobarbitaL sodium 130 MG/ML IM ONCE 181 MG IM (20:14)
[2025-09-03] MEDS: 0.9 % Sodium Chloride Flush 3 ML SYRINGE IVFLUSH (23:15)
[2025-09-03] MEDS: PHENobarbitaL sodium 130 MG/ML VIAL IM Q3Hx2 163 MG IM (23:15)
[2025-09-04] VITALS (7 sets, daily range): BP systolic 97–122; BP diastolic 52–72; PULSE 70–88; RESP 14–18; TEMP 36.5–37; O2SAT 90–93
[2025-09-04] MEDS: PHENobarbitaL sodium 130 MG/ML VIAL IM Q3Hx2 163 MG IM (01:59)
[2025-09-04 06:02] LABS: Hematocrit 30.0 % (42.0-52.0); Hemoglobin 9.6 g/dl (14.0-18.0); Mean Corpuscular HGB Conc 32.0 g/dl (31.0-36.0); Mean Corpuscular Hemoglobin 30.3 pg (27.0-33.0); Mean Corpuscular Volume 94.6 fL (80.0-98.0); NRBC Abs Auto 0.000 X10*3/uL (0.0-0.012); NRBC Pct Auto 0.0 /100WBC (0.0-0.2); Platelet Count 53 X10*3/uL (160-400); Red Blood Count 3.17 X10*6/uL (4.60-5.80); White Blood Count 3.5 X10*3/uL (4.8-10.8)
[2025-09-04 06:19] LABS: Anion Gap 12 (12-20); Blood Urea Nitrogen 18 mg/dL (9-16); Calcium 8.2 mg/dL (8.4-10.2); Carbon Dioxide 20 mmol/L (22-29); Chloride 110 mmol/L (96-108); Creatinine Clr Calc Pharmacy 88.1; Estimated Glomerular Filt Rate > 60; Magnesium 1.6 mg/dL (1.6-2.6); Potassium 4.1 mmol/L (3.3-5.1); Sodium 138 mmol/L (135-145)
[2025-09-04 06:23] LABS: NT Pro B Type Natriuretic Pept 145.5 pg/mL (<300)
--- NOTE | 2025-09-04 08:28 | P.PNIM_ITS ---
Subjective Subjective Date of Service: 09/04/25 Interval History: Notified by nursing pt had bright red blood per rectum with brown stool Pt reports has had nonpainful bleeding with bowel movements for many weeks now Usually has a bowel movement every 2-4 days Reports ?everything's good ; has no acute medical complaints Denies nausea, vomiting, abdominal pain Review of Systems Review of Systems: Yes all other systems are reviewed and are negative Physical Exam 2 Exam: Exam: General: AOx3, no acute distress. Unkempt, frail looking Resp: CTA bilaterally CVS: S1, S2, RRR GI: +BS, NT, no distention Skin: Warm, dry Neuro: Cranial nerves II-XII grossly intact bilaterally. Motor grossly intact bilaterally Extremities: No edema Psych: Appropriate affect Vital Signs: Vital Signs: Last Vital Signs Temp 98.3 F 09/04/25 07:44 Pulse 88 09/04/25 07:44 Resp 16 09/04/25 07:44 BP 113/52 L 09/04/25 07:44 Pulse Ox 92 09/04/25 07:44 O2 Del Method Nasal Cannula 09/04/25 07:44 O2 Flow Rate 2 09/04/25 07:44 BMI result Body Mass Index 20.2 Objective Data Active Medications Acetaminophen (Acetaminophen 325 Mg Tablet) 650 mg PO Q6H PRN PRN Reason: Pain, Mild 1-3,fever,headache Calcium Carbonate (Calcium Carbonate 750 Mg Tab.Chew) 750 mg PO Q4H PRN PRN Reason: Heartburn Furosemide (Furosemide 20 Mg/2 Ml Vial) 20 mg IVPUSH DAILY [facility]; Protocol Stop: 09/05/25 08:59 Magnesium Hydroxide (Milk Of Magnesia 30 Ml Oral.Susp) 30 ml PO DAILY PRN PRN Reason: Constipation Melatonin (Melatonin 3 Mg Tablet) 6 mg PO BEDTIME PRN PRN Reason: Insomnia Ondansetron HCl (Ondansetron Hcl 4 Mg/2 Ml Vial) 4 mg IVPUSH Q8H PRN PRN Reason: Nausea and Vomiting Pharmacy Consult (Consult Rx Etoh Phenob Im/Po) 1 each MISCELLANE ONCE PRN; Protocol PRN Reason: Consult order Phenobarbital (Phenobarbital 15 Mg Tablet) 45 mg PO BID [facility]; Protocol Stop: 09/05/25 21:01 Phenobarbital (Phenobarbital 15 Mg Tablet) 15 mg PO BID [facility]; Protocol Stop: 09/07/25 21:01 Phenobarbital (Phenobarbital 15 Mg Tablet) 15 mg PO DAILY [facility]; Protocol Stop: 09/09/25 09:01 Sodium Chloride (0.9 % Sodium Chloride Flush 3 Ml Syringe) 3 ml IVFLUSH QSHIFT [facility] Last Admin: 09/03/25 23:15 Dose: 3 ml Documented By: FELIZ Labs 09/04/25 16:06 09/04/25 05:16 Labs: Laboratory Results - last 24 hr 09/03/25 09/03/25 09/04/25 11:54 14:15 05:16 MCV 97.4 94.6 MCH 30.4 30.3 MCHC 31.2 32.0 RDW 17.4 H 17.2 H Plt Count 59 L 53 L MPV 12.1 Not Reportable Immature Gran % (Auto) 1.2 H Neut % (Auto) 66.9 Lymph % (Auto) 14.5 L Harmon % (Auto) 14.0 H Eos % (Auto) 2.2 Baso % (Auto) 1.2 Lymph # (Auto) 0.6 L Harmon # (Auto) 0.6 Eos # (Auto) 0.1 Baso # (Auto) 0.1 Abs Immat Gran (auto) 0.05 H Absolute Neuts (auto) 2.8 Absolute Nucleated RBC 0.000 0.000 Nucleated RBC % (auto) 0.0 0.0 Hold Purple Top SEE NOTE Hold Blue Top SEE NOTE Anion Gap 10 L 12 Estim Creat Clear Calc 71.9 88.1 Estimated GFR > 60 > 60 Random Glucose 81 86 Lactic Acid 2.6 H* Lactic Acid F/U @ 2Hr 1.8 Calcium 8.6 8.2 L Magnesium 1.7 1.6 Total Bilirubin 0.5 AST 40 H ALT 8 Alkaline Phosphatase 95 Troponin I High Sens < 2.7 < 2.7 C-Reactive Protein 0.74 H NT-Pro-B Natriuret Pep 166.0 145.5 Total Protein 7.7 Albumin 3.4 L Lipase 25 Ethyl Alcohol 67 Assessment and Plan (1) Alcohol use disorder, severe, dependence: Status: Acute (2) Rectal bleeding: Status: Acute Plan Pt is a 55-year-old male with a PMH significant for liver cirrhosis, ongoing alcohol abuse, chronic pancytopenia, multiple hospitalizations, and chronic homelessness who presented to the ED reporting upper back pain and blister on his right foot that has caused him to limp while walking. Pt will be admitted to the hospital for acute on chronic hypoxic respiratory in the setting of possible pulmonary edema. Acute on chronic hypoxic respiratory failure in the setting of possible pulmonary edema Pt previously admitted 3 days prior for possible pneumonia vs atelectasis Pt was treated with empiric Zosyn x3 days No cough, fever, shortness of breath, or difficulty breathing; no indication to continue antibiotics at this time BNP WNL; echocardiogram on 05/26/2025 essentially normal without evidence of CHF; no indication for repeat echo at this time Pt given Lasix 20 mg IV in the ED, gave additional Lasix 20 mg IV x1 this morning BNP downtrending further Supplemental oxygen >92, wean as tolerated Pt has been intermittently hypoxic multiple times since at least 2022 Pt qualified for for 2 L at rest and 4 L with ambulation from prior home O2 evaluation on 08/18/2025 Pt refuses home oxygen due to being homeless and refusing to go to a half-way Encourage incentive spirometry Encouraged pt to be discharged to a half-way for supplemental oxygen Hematochezia Pt noted to have bright red blood per rectum with bowel movement States this has been ongoing times many weeks Denies pain or straining with bowel movements Gi consulted, thinks likely internal hemorrhoids H&H currently stable, monitor Consider colonoscopy if H&H declines Back pain Likely secondary to back strain Pt currently reports feels well with back pain resolved No additional back pain complaints today Monitoring Question of alcohol esophagitis As seen on previous CT F/U outpatient for possible EGD Alcohol use disorder Pt with long hx of chronic alcohol use and chronic alcohol withdrawal Will initiate empiric phenobarbital protocol CIWA Thiamine, folic acid and multivitamins. Alcoholic liver cirrhosis with history of esophageal varices and pancytopenia At baseline No evidence of acute bleeding Continue to monitor Acute lactic acidosis, resolved Due to liver failure and alcohol intoxication. Code status: Full DVT prophylaxis: SCDs (pharmacological VTE prophylaxis contraindicated due to thrombocytopenia). Attending: Dr. Nguyen Pt will require continued hospitalization for monitoring of H&H for possible need for transfusion and/or colonoscopy. Pt is also being treated for acute alcohol withdrawal. Quality Stroke Does the patient have a stroke diagnosis?: No VTE Prior VTE?: No VTE Risk Level:: Medical - moderate - high VTE Device Contraindication: N/A - Device Ordered VTE Drug Contraindication: Treatment Not Indicated
[2025-09-04] MEDS: Furosemide 20 MG/2 ML VIAL IVPUSH (08:33)
[2025-09-04] MEDS: 0.9 % Sodium Chloride Flush 3 ML SYRINGE IVFLUSH ×3 (08:33→20:45)
--- NOTE | 2025-09-04 12:05 | MHC.CM.PN ---
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 Independent w/ all care. +AUD. PCP [facility], but he cannot recall the last time he was seen. HCP on file and verified. +THRIVE- declines resource guide. DP: Patient's goal is return to streets on foot. He does not want alf placement and states he would not consider a STR. CM will continue to follow.
--- NOTE | 2025-09-04 14:19 | PM.GICN ---
History of Present Illness Data of Consult Service Date: 09/04/25 Requesting physician: Christian Booth Primary Care Provider: Santosh Ling MD [facility] Reason for consult: Bright red blood per rectum w/brown colored stool 55 YM with liver cirrhosis, ongoing alcohol abuse, chronic pancytopenia, multiple hospitalizations, and chronic homelessness seen at [facility] ED on 09/03/25 with upper back pain and blister on his right foot that has caused him to limp while walking. Pt had just eloped from the hospital the prior day after being admitted for acute hypoxic respiratory failure secondary to pneumonia vs atelectasis. Pt was initially treated with empiric Zosyn for 3 days due to aspiration concerns as he was initially brought to the ED by the police department after being found sleeping on a porch. Pt then eloped AMA after 3 days as he said he did not know why he was in the hospital and wanted to go home. Pt denied difficulty breathing, SOB, or any cough, lower extremity weakness or edema, fever or chills. Pt reports that he was only able to drink a few beers and maybe a couple of nips which is below his baseline, but that was all he was able to find. He notes he drinks 3 beers and 1/2 of vodka daily on a regular basis. GI consulted today after he was noted by the Nursing staff to have BRBPR with brown stools. Pt admits to intermittent episodes of passage of BRBPR in the past prior to current hospitalization. He denies abdominal or rectal pain, feeling dizzy or lightheaded. Labs showed H & H 9.6 & 30 which is at his baseline Workup in the ED was significant for moderate interstitial pulmonary edema without focal pneumonia or effusions. BNP WNL at 166. Serial troponins negative. Sodium 133, lactic acid 2.6 with repeat 1.8. Pt was treated with furosemide 20 mg IV push. During ambulation trial pt was noted to be weak and with ataxic gait, and pt desatted to 70% on RA. Pt will be admitted to the hospital for acute on chronic hypoxic respiratory in the setting of possible pulmonary edema. PAST GI HISTORY BY REVIEW OF MEDICAL RECORDS: 2022 EGD AND COLONOSCOPY WERE PERFORMED BY DR. CHAVEZ: Endoscopy Findings: esophageal variceal portal hypertensive gastropathy Colonoscopy Findings: Two adenomatous polyps were removed internal hemorrhoids Plan: Await Pathology results Repeat Colonoscopy in 1-2 years or earlier if clinically indicated High fiber diet leaflet avoid straining at stool, epsom salts and sitz bath, anusol supps or cream carafate for 2 weeks and PPI repeat EGD in 4-6 weeks Review of Systems Review of Systems: Yes all other systems are reviewed and are negative [facility] Past Medical History Medical History Pancytopenia Cirrhosis Hypomagnesemia Aspiration pneumonia Alcohol use disorder CHF (congestive heart failure) Alcohol abuse Acute hypoxemic respiratory failure Anemia Pneumonia Alcohol withdrawal syndrome Alcohol abuse Thrombocytopenia Esophageal varices Acute on chronic anemia Alcoholic liver disease Thrombocytopenia Malnutrition CHF (congestive heart failure) Anemia Thrombocytopenia Acute on chronic anemia CHF (congestive heart failure) Anemia Alcohol abuse Surgical History Surgical History No history of previous surgery Social History Social History Household Members: None Household Members Other:: homeless Housing: Homeless Housing Other:: homeless Do you presently have visiting nurse or other home services: No Alcohol intake: current Alcohol intake frequency: 3 or more drinks per day Alcohol type: beer and hard liquor Comment: pt refuse to have staff remain in BR Patient Tobacco Use Status: Former Tobacco user Tobacco use type: Cigarette Second Hand Smoke Exposure: No Currently Displaying Signs/Symptoms of Drug Intoxication Withdrawal: No Have you been hit, kicked, punched, or otherwise hurt by someone within the past year? If so, by whom?: No Do you feel safe in your current relationship?: No Current Relationship Is there a partner from a previous relationship who is making you feel unsafe now?: No Are you made to feel afraid or neglected: No Advance Directives: Yes Advance Directives on File: Yes Advance Directives Date on File: 07/13/23 Do you have a plan to hurt others: No Plan Recently lost weight without trying: Unsure Nutrition Risks: No Nutritional Risk service: No Meds Allergies Allergy/AdvReac Type Severity Reaction Status Date / Time No Known Allergies (No Known Allergy Verified 09/03/25 11:15 Allergies*) Active Medications: Current Medications Acetaminophen (Acetaminophen 325 Mg Tablet) 650 mg PO Q6H PRN PRN Reason: Pain, Mild 1-3,fever,headache Calcium Carbonate (Calcium Carbonate 750 Mg Tab.Chew) 750 mg PO Q4H PRN PRN Reason: Heartburn Furosemide (Furosemide 20 Mg/2 Ml Vial) 20 mg IVPUSH DAILY FORMERLY [facility], 1928[facility]1983; Protocol Stop: 09/05/25 08:59 Last Admin: 09/04/25 08:33 Dose: 20 mg Magnesium Hydroxide (Milk Of Magnesia 30 Ml Oral.Susp) 30 ml PO DAILY PRN PRN Reason: Constipation Melatonin (Melatonin 3 Mg Tablet) 6 mg PO BEDTIME PRN PRN Reason: Insomnia Ondansetron HCl (Ondansetron Hcl 4 Mg/2 Ml Vial) 4 mg IVPUSH Q8H PRN PRN Reason: Nausea and Vomiting Pharmacy Consult (Consult Rx Etoh Phenob Im/Po) 1 each MISCELLANE ONCE PRN; Protocol PRN Reason: Consult order Phenobarbital (Phenobarbital 15 Mg Tablet) 45 mg PO BID FORMERLY [facility], [facility]1983; Protocol Stop: 09/05/25 21:01 Last Admin: 09/04/25 08:32 Dose: 45 mg Phenobarbital (Phenobarbital 15 Mg Tablet) 15 mg PO BID FOR[facility]LY [facility], [facility]1983; Protocol Stop: 09/07/25 21:01 Phenobarbital (Phenobarbital 15 Mg Tablet) 15 mg PO DAILY FOR[facility]LY [facility], [facility]1983; Protocol Stop: 09/09/25 09:01 Sodium Chloride (0.9 % Sodium Chloride Flush 3 Ml Syringe) 3 ml IVFLUSH QSHIFT FOR[facility]LY [facility], [facility]–1983 Last Admin: 09/04/25 08:33 Dose: 3 ml Home Medications ?Medication ?Instructions ?Recorded ?Confirmed ?Last Taken ?Type No Known Home Meds 09/03/25 09/03/25 Unknown History Physical Exam Vital Signs: Vital Signs: Last Vital Signs Temp 98.3 F 09/04/25 07:44 Pulse 88 09/04/25 07:44 Resp 16 09/04/25 07:44 BP 113/52 L 09/04/25 07:44 Pulse Ox 92 09/04/25 07:44 O2 Del Method Nasal Cannula 09/04/25 07:44 O2 Flow Rate 2 09/04/25 07:44 BMI result Body Mass Index 20.2 Const: General: healthy appearing and no acute distress Nutritional Appearance: average body habitus Orientation/consciousness: patient oriented x3 Limitations: no limitations HEENT: Head: Yes normal to inspection Ears: hearing grossly normal bilaterally Mouth: Normal oral and palatal mucosa present Eyes: Sclerae: sclerae normal Pupils: Equal, round and reactive pupils present Neck: Neck: Yes normal visual inspection Chest: Chest palpation & inspection: normal inspection of the chest Resp: Effort & Inspection: normal respiratory effort Auscultation: clear to auscultation bilaterally Cardio: Palpation: normal PMI Rate: regular rate Rhythm: regular rhythm Heart sounds: S1 normal heart sound present, S2 normal heart sound present and no murmurs GI: Palpation (GI): Soft to palpation, nontender and No hepatosplenomegaly present Auscultation: normal bowel sounds Rectal Exam - Male: Yes deferred Skin: General skin exam: no rashes or lesions noted Neuro: General: patient oriented x3, gait normal and moves all extremities Cranial nerves: Yes Equal, round and reactive pupils present Psych: Appearance: grossly normal Mental Status: mental status grossly normal Results Labs 09/04/25 16:06 09/04/25 05:16 Labs: Short CBC 09/04/25 Range/Units 05:16 WBC 3.5 L (4.8-10.8) X10*3/uL Hgb 9.6 L (14.0-18.0) g/dl Hct 30.0 L (42.0-52.0) % Plt Count 53 L (160-400) X10*3/uL BMP 09/04/25 05:16 Sodium 138 Potassium 4.1 Chloride 110 H Carbon Dioxide 20 L BUN 18 H Creatinine 0.75 Calcium 8.2 L Microbiology Microbiology Results: Microbiology 09/03/25 11:54 Blood - Venous Blood Culture - Preliminary No growth after 24 hours. 09/03/25 11:54 Blood - Venous Blood Culture - Preliminary No growth after 24 hours. Assessment and Plan (1) Hemorrhoids, internal, with bleeding: Status: Acute (2) Rectal bleeding: Status: Acute Plan 55 YM with liver cirrhosis, ongoing alcohol abuse, chronic pancytopenia, multiple hospitalizations, and chronic homelessness admitted to [facility] on 09/03/25 with upper back pain and blister on his right foot that has caused him to limp while walking. Pt reports that he was only able to drink a few beers and maybe a couple of nips which is below his baseline, but that was all he was able to find. He notes he drinks 3 beers and 1/2 of vodka daily on a regular basis. GI consulted today after he was noted by the Nursing staff to have BRBPR with brown stools. Pattern of bleeding is suggestive of a hemorrhoidal source. Of note hemorrhoids were detected during colonoscopy in 2022. Labs showed H & H 9.6 & 30 which is at his baseline RECOMMENDATIONS: 1. Follow CBC daily 2. Fibre supplement and Hydrocortisone cream twice daily for hemorrhoids 3. If pt has significant bleeding associated with a decline in CBC, further evaluation with colonoscopy can be scheduled. 4. Agree with [facility] protocol for ETOH withdrawl and referral to addiction medicine Procedures Date of Service Date of Service: 09/04/25
[2025-09-04 16:42] LABS: Hemoglobin 9.8 g/dl (14.0-18.0); NRBC Abs Auto 0.000 X10*3/uL (0.0-0.012); NRBC Pct Auto 0.0 /100WBC (0.0-0.2)
[2025-09-04 16:44] LABS: Hematocrit 30.6 % (42.0-52.0); Mean Corpuscular HGB Conc 32.0 g/dl (31.0-36.0); Mean Corpuscular Hemoglobin 30.3 pg (27.0-33.0); Mean Corpuscular Volume 94.7 fL (80.0-98.0); Red Blood Count 3.23 X10*6/uL (4.60-5.80); White Blood Count 3.3 X10*3/uL (4.8-10.8)
[2025-09-04 16:51] LABS: PLT ABN DIST 1; Platelet Count 49 X10*3/uL (160-400)
--- NOTE | 2025-09-04 18:34 | PC.NURSE ---
Pt had bowel movement with bright red blood in am, [facility] notified. GI consulted, Dr. Milton at bedside, see report for details. No new orders at this time.
[2025-09-04] MEDS: Psyllium seed 3.7 GM PACKET PO (20:45)
[2025-09-05 03:07] VITALS: BP 107/59; PULSE 76; RESP 18; TEMP 37.6; O2SAT 96
[2025-09-05 06:59] LABS: Anion Gap 10 (12-20); Blood Urea Nitrogen 22 mg/dL (9-16); Calcium 8.2 mg/dL (8.4-10.2); Carbon Dioxide 22 mmol/L (22-29); Chloride 108 mmol/L (96-108); Creatinine Clr Calc Pharmacy 98.7; Estimated Glomerular Filt Rate > 60; Magnesium 1.5 mg/dL (1.6-2.6); Potassium 4.1 mmol/L (3.3-5.1); Sodium 136 mmol/L (135-145)
[2025-09-05 07:03] LABS: Hematocrit 30.2 % (42.0-52.0); Hemoglobin 9.6 g/dl (14.0-18.0); Mean Corpuscular HGB Conc 31.8 g/dl (31.0-36.0); Mean Corpuscular Hemoglobin 30.1 pg (27.0-33.0); Mean Corpuscular Volume 94.7 fL (80.0-98.0); NRBC Abs Auto 0.000 X10*3/uL (0.0-0.012); NRBC Pct Auto 0.0 /100WBC (0.0-0.2); Platelet Count 48 X10*3/uL (160-400); Red Blood Count 3.19 X10*6/uL (4.60-5.80); White Blood Count 3.7 X10*3/uL (4.8-10.8)
[2025-09-05 07:36] VITALS: BP 90/55; PULSE 72; RESP 16; TEMP 37; O2SAT 90
[2025-09-05] MEDS: 0.9 % Sodium Chloride Flush 3 ML SYRINGE IVFLUSH ×2 (09:28→16:32)
[2025-09-05] MEDS: Lactated Ringers 500 ML 999 ML IV (09:28)
--- NOTE | 2025-09-05 14:54 | MHC.CM.PN ---
Patient not medically cleared for dc. CM met with patient again to discuss dc plan. Continues to refuse SNF, snf, and home O2.
[2025-09-05 15:05] VITALS: BP 95/59; PULSE 74; RESP 18; TEMP 36.1; O2SAT 92
--- NOTE | 2025-09-05 17:21 | PM.DS ---
DS: Providers Provider Date of Service: 09/05/25 Date of admission: 09/03/25 17:12 Date of discharge: 09/05/25 Primary care physician: Santosh Ling MD Consults: 09/04/25 12:55 Consult to Gastroenterology Routine Consulting Provider: [facility] Reason for consultation: Bright red blood per rectum w/brown colored stool DS: Diagnosis Discharge Diagnosis (1) Alcohol use disorder, severe, dependence: Status: Acute (2) Rectal bleeding: Status: Acute DS: Summary Hospital Course Hospital Course: From admission HPI: Date of Service: 09/03/25 Attending physician on admission: [facility] Chief Complaint: Back pain Pt is a 55-year-old male with a PMH significant for liver cirrhosis, ongoing alcohol abuse, chronic pancytopenia, multiple hospitalizations, and chronic homelessness who presented to the ED reporting upper back pain and blister on his right foot that has caused him to limp while walking. Pt had just eloped from the hospital the prior day after being admitted for acute hypoxic respiratory failure secondary to pneumonia vs atelectasis. Pt was initially treated with empiric Zosyn for 3 days due to aspiration concerns as he was initially brought to the ED by the police department after being found sleeping on a porch. Pt then eloped AMA after 3 days as he said he did not know why he was in the hospital and wanted to go home. Pt reports earlier today his back was ?kicking? 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 He then asked someone to call an ambulance to bring up to the ED. Pt denies any trauma to the area or recent fall. Currently pt is seen resting comfortably in bed. States back pain feels much better, though has not been moving or trying to sweet pickled fruit maker vitals. Denies difficulty breathing, SOB, or any cough. No lower extremity weakness or edema. Denies fever or chills. Pt reports that he was only able to drink a few beers and maybe a couple of nips which is below his baseline, but that was all he was able to find. Workup in the ED was significant for moderate interstitial pulmonary edema without focal pneumonia or effusions. BNP WNL at 166. Serial troponins negative. Sodium 133, lactic acid 2.6 with repeat 1.8. Pt was treated with furosemide 20 mg IV push. During ambulation trial pt was noted to be weak and with ataxic gait, and pt desatted to 70% on RA. Pt will be admitted to the hospital for acute on chronic hypoxic respiratory in the setting of possible pulmonary edema. Hospital course Pt was admitted to the hospital for acute on chronic hypoxic respiratory failure in the setting of possible pulmonary edema as seen on imaging. Pt had previously been admitted to the hospital and eloped 1 day prior where he was being treated for possible aspiration pneumonia vs atelectasis. Pt has a long hx of hypoxia secondary and previously qualified earlier this month on 08/15 for home supplemental oxygen of 2 L at rest and 4 L with ambulation. Pt was initially given IV diuresing though pt without any evidence of CHF: BNP WNL, echocardiogram on 05/26/2025 essentially normal, no lower leg edema. Hospital stay was complicated by nursing noticing pt had bright red blood per rectum with brown-colored stool. Pt reported that this has been ongoing with bowel movements for weeks to months. Pt denied any pain with bowel movement. He was seen and evaluated by GI who thought likely secondary to internal hemorrhoids. H&H was monitored and chronic anemia stable and at baseline. Pt had initially presented due to back pain, though these symptoms resolved without any acute intervention. The pt was preemptively treated with phenobarb protocol for alcohol withdrawal, though CIWA was consistently low. Pt has a long hx of leaving AMA and refusing treatment, and threatened to do so multiple times during the day. Was seen by multiple people who attempted to convince pt to be discharged to a half-way where he could have supplemental home oxygen, though pt adamantly refused. Case management also attempted to have oxygen delivered to the patient's brother's house, though he declined this option as well. Pt currently reports he feels back to baseline and does not know why he should stay in the hospital any longer. Pt refuses any home medications including oxygen. He is strongly encouraged to abstain from alcohol use and will be discharged to his own services. Additional details concerning hospital stay as indicated below. Acute on chronic hypoxic respiratory failure in the setting of possible pulmonary edema Pt previously admitted 3 days prior for possible pneumonia vs atelectasis Pt was treated with empiric Zosyn x3 days No cough, fever, shortness of breath, or difficulty breathing; no indication to continue antibiotics at this time BNP WNL; echocardiogram on 05/26/2025 essentially normal without evidence of CHF; no indication for repeat echo at this time Pt given Lasix 20 mg IV in the ED, gave additional Lasix 20 mg IV x1 this morning BNP downtrending further Supplemental oxygen >92, wean as tolerated Pt has been intermittently hypoxic multiple times since at least 2022 Pt qualified for for 2 L at rest and 4 L with ambulation from prior home O2 evaluation on 08/18/2025 Pt refuses home oxygen due to being homeless and refusing to go to a half-way Encourage incentive spirometry Encouraged pt to be discharged to a half-way for supplemental oxygen Hematochezia Pt noted to have bright red blood per rectum with bowel movement States this has been ongoing times many weeks Denies pain or straining with bowel movements Gi consulted, thinks likely internal hemorrhoids H&H currently stable, monitor Consider colonoscopy if H&H declines Back pain Likely secondary to back strain Pt currently reports feels well with back pain resolved No additional back pain complaints Question of alcohol esophagitis As seen on previous CT F/U outpatient for possible EGD Alcohol use disorder Pt with long hx of chronic alcohol use and chronic alcohol withdrawal Will initiate empiric phenobarbital protocol CIWA Thiamine, folic acid and multivitamins. Alcoholic liver cirrhosis with history of esophageal varices and pancytopenia At baseline No evidence of acute bleeding Continue to monitor Acute lactic acidosis, resolved Due to liver failure and alcohol intoxication. Time Attestation Discharge Coordination Time (in mins): 35 Quality: Safe Use of Opioids Does Pt have an Active Cancer Diagnosis on the Problem List?: No Quality: Stroke Does the patient have a stroke diagnosis?: No Physical Exam Exam: Exam: General: AOx3, no acute distress. Unkempt, frail looking Resp: CTA bilaterally CVS: S1, S2, RRR GI: +BS, NT, no distention Skin: Warm, dry Neuro: Cranial nerves II-XII grossly intact bilaterally. Motor grossly intact bilaterally Extremities: No edema Psych: Appropriate affect Vital Signs: Vital Signs: Last Vital Signs Temp 97 F 09/05/25 15:05 Pulse 74 09/05/25 15:05 Resp 18 09/05/25 15:05 BP 95/59 L 09/05/25 15:05 Pulse Ox 92 09/05/25 15:05 O2 Del Method Nasal Cannula 09/05/25 15:05 O2 Flow Rate 3 09/05/25 15:05 BMI result Body Mass Index 20.2 DS: Data Data Completed and Pending Completed studies during hospitalization [Text1]: Procedures Control Bleeding in Gastrointestinal Tract, Via Natural or Artificial Opening Endoscopic (08/29/23) Control Bleeding in Nasal Mucosa and Soft Tissue, Via Natural or Artificial Opening (11/29/24) Detoxification Services for Substance Abuse Treatment (06/19/25) Drainage of Peritoneal Cavity, Percutaneous Approach (10/21/24) Excision of Ascending Colon, Via Natural or Artificial Opening Endoscopic, Diagnostic (08/03/23) Excision of Descending Colon, Via Natural or Artificial Opening Endoscopic, Diagnostic (08/03/23) Insertion of Infusion Device into Upper Vein, Percutaneous Approach (08/29/23) Introduction of Mineral-based Topical Hemostatic Agent into Lower GI, Via Natural or Artificial Opening Endoscopic, [employer] (08/03/23) Introduction of Mineral-based Topical Hemostatic Agent into Upper GI, Via Natural or Artificial Opening Endoscopic, [employer] (08/29/23) Occlusion of Esophageal Vein with Extraluminal Device, Via Natural or Artificial Opening Endoscopic (11/29/24) Occlusion of Esophageal Vein, Via Natural or Artificial Opening Endoscopic (01/22/24) Transfusion of Nonautologous Plasma Cryoprecipitate into Peripheral Vein, Percutaneous Approach (08/03/23) Transfusion of Nonautologous Platelets into Peripheral Vein, Percutaneous Approach (11/29/24) Transfusion of Nonautologous Red Blood Cells into Peripheral Vein, Percutaneous Approach (11/29/24) Labs on day of discharge: Laboratory Results - last 24 hr 09/05/25 06:18 WBC 3.7 L RBC 3.19 L Hgb 9.6 L Hct 30.2 L MCV 94.7 MCH 30.1 MCHC 31.8 RDW 17.1 H Plt Count 48 L MPV Not Reportable Absolute Nucleated RBC 0.000 Nucleated RBC % (auto) 0.0 Sodium 136 Potassium 4.1 Chloride 108 Carbon Dioxide 22 Anion Gap 10 L BUN 22 H Creatinine 0.67 Estim Creat Clear Calc 98.7 Estimated GFR > 60 Random Glucose 100 Calcium 8.2 L Magnesium 1.5 L Preliminary micro results at discharge 09/03/25 11:54 Blood Culture - Preliminary Blood - Venous No growth after 48 hours. 09/03/25 11:54 Blood Culture - Preliminary Blood - Venous No growth after 48 hours. Discharge Plan Discharge Anticipated Discharge Date/Time: 09/05/25 17:10 Patient Disposition: Home, Self-Care Discharge Diagnosis: Acute on chronic hypoxic respiratory failure Referrals: Santosh Ling MD [Primary Care Provider, Medical] - 1 Week Discharge Medications: No Action No Known Home Meds Discharge Orders: Discharge Order (Routine); Ordered 09/05/25 Ordered By: Christian Booth Activity on Discharge: As tolerated Stand Alone Forms: Patient Portal Discharge page Print Language: [place] Care Plan Goals: See below Health Concerns: Acute on chronic hypoxic respiratory failure Medication noncompliance in the community Alcohol use disorder Rectal bleeding Acute on chronic anemia Homelessness Plan of Treatment: You were admitted to the hospital for acute on chronic hypoxic respiratory failure as you were noted to be desatting to 70% on room air in the emergency department. You initially presented with back pain but that soon resolved without any acute intervention. For hypoxia you were placed on supplemental oxygen. Initially in the emergency room you were given diuretics for possibility of congestive heart failure, though recent echo showed no evidence of CHF and your BNP was not elevated. You were seen by respiratory therapy earlier in the month and qualified for home oxygen of 2 L at rest and 4 L with ambulation, though have declined using home supplemental oxygen due to housing and security. The suggestion was made to keep it at your brother's house, though you declined this option and did not want anyone to contact her family. Every effort was also made to find you a half-way to be discharged to where you could also have supplemental oxygen, which you can declined these services. You report feeling back to baseline and wished to be discharged without any medications or supplemental oxygen. You were also strongly encouraged to abstain from alcohol use, but you report that you have no intention of doing so. Assessment: See discharge summary
--- NOTE | 2025-09-16 07:28 | P.CDIM_ITS ---
PROVIDER RESPONSE TEXT: To clarify, the appropriate diagnosis supported by the clinical indicators: Acute non-cardiac pulmonary edema QUERY TEXT: PHYSICIAN'S DOCUMENTATION REQUEST Date of Query: 09/05/2025 11:55 AM EDT Patient Name: Charbel Delgado Admit Date: 09/03/2025 Dear Christian WALLACE, A review of the medical record indicates additional documentation may be needed. Please review below and update the documentation accordingly. Clinical Indicators: Progress note 09/04/25 - Acute on chronic hypoxic respiratory failure in the setting of possible pulmonary edema. Pt given Lasix IV in the Ed, gave additional Lasix 20 mg IV x 1 this morning. Workup in Ed was significant for moderate interstitial pulmonary edema without focal pneumonia. BNP trending down 145.5, mild peripheral edema. PMH: Congestive heart failure BNP wnl, echo on 05/26/25 essentially normal without evidence of CHF. No indication for repeat each at this time. Supplemental oxygen, patient has been intermittently hypoxic. Previously admitted 3 days prior for possible pneumonia. Based on the above, could you please provide, in the Progress Notes, further specificity regarding the acuity of the pulmonary edema? Acute non-cardiac pulmonary edema Acute non-cardiac pulmonary edema due to other cause Please specify other cause Acute pulmonary edema due to heart failure Please further specify the type and acuity Chronic pulmonary edema due to non-cardiac etiology Please specify cause Chronic pulmonary edema due to heart failure Please further specify the type and acuity Other (explain) Clinically unable to determine (explain) Thank you, Rina Gutierrez, CCS, CDIS Use of terms such as suspected, likely, concern for, or probable (associated with a specific diagnosis that is being evaluated, monitored, or treated as if it exists) are acceptable and can be coded in the inpatient setting, when documented at the time of discharge. Please use your independent medical judgment in providing your response. THIS QUERY IS PART OF THE PERMANENT MEDICAL RECORD
== END 2025-09-05 17:35 | disposition home or self-care (01) | DRG 139 ==
LOC: HO.ED 15:29 → HO.EDOVER 17:20 → HO.S3 17:22
PROVIDERS: Internal Medicine Gastroenterology; Physician Assistant Medical; Admitting Provider Student in an Organized Health Care Education/Training Program; Emergency Provider Emergency Medicine; PCP Internal Medicine; Visit Provider Student in an Organized Health Care Education/Training Program
DX: J18.9 Pneumonia, unspecified organism (principal); J96.21 Acute and chronic respiratory failure with hypoxia; D61.818 Other pancytopenia; J81.0 Acute pulmonary edema; E87.21 Acute metabolic acidosis; K70.30 Alcoholic cirrhosis of liver without ascites; Y90.3 Blood alcohol level of 60-79 mg/100 ml; F10.229 Alcohol dependence with intoxication, unspecified; K20.90 Esophagitis, unspecified without bleeding; S39.012A Strain of muscle, fascia and tendon of lower back, initial encounter; X58.XXXA Exposure to other specified factors, initial encounter; J98.11 Atelectasis; K64.8 Other hemorrhoids; K62.5 Hemorrhage of anus and rectum; Z59.02 Unsheltered homelessness; Z87.891 Personal history of nicotine dependence
CPT/HCPCS: 36415; 71046; 80048; 80053; 80307; 83605; 83690; 83735; 83880; 84484; 85025; 85027; 86140; 87040; 93005; 99284; J1938; J2560; J7120

== ENCOUNTER → 2025-09-03 11:18 | Outpatient (BNV) | payer MEDICAID, SELFPAY | PROVIDERS: Emergency Provider Emergency Medicine; Visit Provider Radiology Diagnostic Radiology | DX: J81.1 Chronic pulmonary edema (principal) | CPT/HCPCS: 71046 ==

== ENCOUNTER → 2025-09-03 11:18 | Outpatient (BNV) | payer MEDICAID, SELFPAY | PROVIDERS: Emergency Provider Emergency Medicine; Visit Provider Internal Medicine Cardiovascular Disease | DX: R09.02 Hypoxemia (principal) | CPT/HCPCS: 93010 ==

== ENCOUNTER → 2025-09-03 17:12 | Outpatient (BNV) | payer MEDICAID, SELFPAY | PROVIDERS: Admitting Provider Student in an Organized Health Care Education/Training Program; Emergency Provider Emergency Medicine; PCP Internal Medicine; Visit Provider Internal Medicine Gastroenterology | DX: K64.8 Other hemorrhoids (principal); K62.5 Hemorrhage of anus and rectum | CPT/HCPCS: 99222 ==

== ENCOUNTER → 2025-09-03 17:12 | Outpatient (BNV) | payer MEDICAID, SELFPAY | PROVIDERS: Admitting Provider Student in an Organized Health Care Education/Training Program; Emergency Provider Emergency Medicine; Visit Provider Student in an Organized Health Care Education/Training Program | DX: F10.20 Alcohol dependence, uncomplicated (principal); K62.5 Hemorrhage of anus and rectum; J96.01 Acute respiratory failure with hypoxia | CPT/HCPCS: 99223; 99233; 99239 ==

== ENCOUNTER 2025-09-05 23:56 | Emergency (ER) | payer MEDICAID, SELFPAY ==
--- NOTE | ~2025-09-05 | XR_ITS ---
CLINICAL HISTORY: Hypoxia 1 view chest x-ray Comparison: CR/SR - XR CHEST 2 VIEWS - 09/03/25 12:22 EDT Findings: Mildly decreased left retrocardiac patchy opacities with increasing air bronchograms. Diffuse bronchial wall thickening. No significant pleural effusion or pneumothorax. Similar prominent/enlarged cardiac silhouette. No acute fracture. IMPRESSION: Mildly improved exam from prior. This document has been electronically signed by: Randal Mendoza MD on 09/06/2025 00:54:28
--- NOTE | ~2025-09-05 | CT_ITS ---
CLINICAL HISTORY: SOB, hypoxia CT angiography chest with contrast. 3D Postprocessing. Comparison: CT - CT ANGIO CHEST PE PROTOCOL - 09/06/25 09:43 EDT Findings: The heart size is normal. RV/LV ratio is normal. Unremarkable thoracic aorta and great vessels. No aneurysm. No acute pulmonary embolus. There is a moderate size hiatal hernia. There is a small left effusion with left basilar atelectasis/pneumonia. Right basilar atelectasis is also noted. The visualized upper abdomen is unremarkable. There is a severe chronic compression fracture of T8. IMPRESSION: 1. No pulmonary emboli. 2. Small left effusion with left basilar atelectasis. Pneumonia is not excluded. 3. Severe chronic compression fracture of T8. 4. Moderate hiatal hernia. This document has been electronically signed by: Christian Beard MD on 09/06/2025 12:04:37
[2025-09-06] VITALS (14 sets, daily range): BP systolic 0–113; BP diastolic 0–61; PULSE 0–98; RESP 0–20; TEMP -17.7–37.8; O2SAT 0–96; BMI 21.0
--- NOTE | 2025-09-06 00:14 | ED.GENADULT ---
HPI - General Adult General Chief complaint: Extremity Problem Stated complaint: Shoulder and Leg Pain Time Seen by Provider: 09/06/25 00:10 Source: patient Mode of arrival: ambulatory Limitations: no limitations History of Present Illness ED Provider: David WALLACE HPI narrative: The patient is a 55-year-old male with a history of alcohol dependency, homelessness, COPD, cirrhosis, pancytopenia, and CHF. presenting to the ED via EMS for evaluation of alcohol intoxication, also reporting chronic right ankle and back pain. The patient arrives to the ED clinically intoxicated, with FiO2 via nasal cannula. Per chart review the patient was recently admitted on 08/31 for respiratory failure thought to be secondary to aspiration pneumonia, patient eloped from the ED on 09/03, returned and was readmitted on 09/03 again for acute hypoxic respiratory failure, treated with empiric Zosyn, and was discharged earlier today with diagnosis of respiratory failure and bleeding internal hemorrhoids. The patient was discharged with instructions to go to a local half-way for supplemental oxygen as he qualified for 4 L/min on home O2 evaluation on August 18. Patient has repeatedly refused home oxygen and refused to go to a half-way. Related Data Home Medications ?Medication ?Instructions ?Recorded ?Confirmed No Known Home Meds 09/03/25 09/03/25 Allergies Allergy/AdvReac Type Severity Reaction Status Date / Time No Known Allergies (No Known Allergy Verified 09/06/25 00:07 Allergies*) Review of Systems Review of Systems: Yes all other systems are reviewed and are negative PMFSH Past Medical History Medical History Pancytopenia Cirrhosis Hypomagnesemia Aspiration pneumonia Alcohol use disorder CHF (congestive heart failure) Alcohol abuse Acute hypoxemic respiratory failure Anemia Pneumonia Alcohol withdrawal syndrome Alcohol abuse Thrombocytopenia Esophageal varices Acute on chronic anemia Alcoholic liver disease Thrombocytopenia Malnutrition CHF (congestive heart failure) Anemia Thrombocytopenia Acute on chronic anemia CHF (congestive heart failure) Anemia Alcohol abuse Surgical History No history of previous surgery Social History Social History Household Members: None Household Members Other:: homeless Housing: Homeless Housing Other:: homeless Do you presently have visiting nurse or other home services: No Alcohol intake: current Alcohol intake frequency: 3 or more drinks per day Alcohol type: beer and hard liquor Comment: pt refuse to have staff remain in [place] Patient Tobacco Use Status: Former Tobacco user Tobacco use type: Cigarette Smoked in Last 30 Days: No Second Hand Smoke Exposure: No Use of substances other than those prescribed or required for medical reasons: No Advance Directives: Yes Advance Directives on File: Yes Advance Directives Date on File: 07/13/23 service: No Physical Exam ED Vital Signs: Vital Signs - 24 hr 09/06/25 00:06 09/06/25 00:47 09/06/25 02:00 Temperature 97.9 F Pulse Rate 80 75 90 Respiratory Rate 16 18 18 Blood Pressure 99/51 L 95/54 L Pulse Oximetry 94 96 Oxygen Delivery Method Nasal Cannula Nasal Cannula Oxygen Flow Rate 4 09/06/25 04:00 09/06/25 04:31 09/06/25 04:33 Temperature Pulse Rate 93 85 88 Respiratory Rate 18 18 18 Blood Pressure 110/52 L 110/52 L 100/51 L Pulse Oximetry 92 94 93 Oxygen Delivery Method Nasal Cannula Nasal Cannula Nasal Cannula Oxygen Flow Rate 4 4 4 09/06/25 04:50 09/06/25 07:14 09/06/25 08:23 Temperature 100.0 F Pulse Rate 86 85 Respiratory Rate 18 20 Blood Pressure 104/55 L 90/43 L Pulse Oximetry 94 90 L Oxygen Delivery Method Nasal Cannula Nasal Cannula Oxygen Flow Rate 4 4 09/06/25 08:45 09/06/25 09:05 09/06/25 09:40 Temperature 98.2 F Pulse Rate 81 79 98 Respiratory Rate 19 15 19 Blood Pressure 113/61 108/51 L Pulse Oximetry 92 89 L Oxygen Delivery Method Nasal Cannula Oxymask Oxygen Flow Rate 4 2 09/06/25 09:42 Temperature 98.2 F Pulse Rate Respiratory Rate Blood Pressure Pulse Oximetry Oxygen Delivery Method Oxygen Flow Rate BMI result Body Mass Index 21.0 CONSTITUTIONAL: The patient appears unkempt, clinically intoxicated, non-toxic, well nourished and in no acute distress. Vital signs as documented. HEAD: Atraumatic, normocephalic. EYES: EOMs grossly intact, pupils equal, conjunctiva clear, no exudate. ENT: Nares patent, no discharge. Airway patent, no audible stridor, visible mucosa is pink and moist without noted lesions. NECK: Trachea is midline, no obvious masses or gross abnormalities. CHEST: Symmetric movement, normal appearance. LUNGS: LS present but diminished throughout, mild expiratory wheezes, question rhonchi of the left upper lobe, otherwise clear to auscultation bilaterally. Non-labored work of breathing at rest with FiO2 via nasal cannula. CARDIAC: Regular Rhythm, S1/S2 appreciated, no murmurs, rubs or gallops. ABDOMEN: Abdomen soft and non-tender x4 quadrants, no palpable masses or organomegaly. : Deferred. EXTREMITIES: Normal tone, moves all extremities spontaneously without reported pain. No obvious acute injury or deformity noted. NEURO: Alert and oriented x3, CN II-XII appear grossly intact. Cerebellar Functioning grossly intact. No obvious sensory or motor deficits. Speech clear and appropriate. PSYCH: Flattened affect, appropriate eye contact, fluid speech, with appropriate response to questioning. No reported suicidality or homicidality. SKIN: Warm, dry, color appropriate, normal turgor. No rashes noted. Course Course Course Narrative: 09/06/2025 0826 Abril Sam PA-C ---> Informed by RN that patient began to develop a fever and continues to be somewhat hypoxic at 90% on 4 liters of NC oxygenation. I re-evaluated the patient and explained that now he is developing a fever + continues to be hypoxic so we would order additional testing including a CT PE study and admit him to the hospital. Patient agreed to this. Patient was given IV ceftriaxone to cover for possible PNA. 09/06/2025 1105 Abril Sam PA-C ---> Patient decided he no longer wanted to be admitted to the hospital and wanted to be discharged, immediately. I explained to the patient that given his condition, I do not recommend discharge. Patient stated that he understood the risk of , disability, and permanent decreased quality of life but he would like to leave. Patient's IV removed. Patient refused to sign an AMA form. Patient was alert, oriented, and walking unassisted in the department. Patient left against medical advice. Medications Administered Discontinued Medications Generic Name Dose Route Start Last Admin Trade Name Freq PRN Reason Stop Dose Admin Albuterol Sulfate 7.5 mg/ 10 mg 09/06/25 00:41 09/06/25 00:46 Albuterol Sulfate 2.5 mg INHALE 09/06/25 00:42 10 mg ONCE ONE Administration Albuterol Sulfate 2.5 mg/ 0 mg 09/06/25 08:58 09/06/25 09:01 Albuterol/Ipratropium 3 ml INHALE 09/06/25 08:59 5 dose ONCE ONE Administration Sodium Chloride 1,000 mls @ 999 mls/hr 09/06/25 01:30 09/06/25 03:00 Ns IV 09/06/25 02:30 Infused .Q1H1M JOSE MANUEL Infusion Sodium Chloride 1,000 mls @ 999 mls/hr 09/06/25 03:45 09/06/25 04:33 Ns IV 09/06/25 04:45 Infused .Q1H1M JOSE MANUEL Infusion Ceftriaxone Sodium 1 gm/ 50 mls @ 100 mls/hr 09/06/25 08:29 09/06/25 10:14 Sodium Chloride IV 09/06/25 08:58 Infused ONCE ONE Infusion Acetaminophen 1,000 mg in 100 mls @ 400 mls/hr 09/06/25 08:46 09/06/25 09:39 Ofirmev IV 09/06/25 09:00 Infused ONCE ONE Infusion Iohexol 100 ml 09/06/25 09:58 09/06/25 09:59 Iohexol 350 Mg/Ml 100 Ml Infus..Btl IV 09/06/25 09:59 65 ml ONCE ONE Administration Medical Decision Making Medical Decision Making MDM Narrative: 12:16 AM 09/06/2025 (Ryan WALLACE): The patient is a 55-year-old male with a history of alcohol dependency, homelessness, COPD, cirrhosis, pancytopenia, and CHF. presenting to the ED via EMS for evaluation of alcohol intoxication, also reporting chronic right ankle and back pain. The patient arrives to the ED clinically intoxicated, with FiO2 via nasal cannula. Per chart review the patient was recently admitted on 08/31 for respiratory failure thought to be secondary to aspiration pneumonia, patient eloped from the ED on 09/03, returned and was readmitted on 09/03 again for acute hypoxic respiratory failure, treated with empiric Zosyn, and was discharged earlier today with diagnosis of respiratory failure and bleeding internal hemorrhoids. The patient was discharged with instructions to go to a local half-way for supplemental oxygen as he qualified for 4 L/min on home O2 evaluation on August 18. Patient has repeatedly refused home oxygen and refused to go to a half-way. On exam the patient has mild expiratory wheezing with diminished breath sounds throughout, question rhonchi in the left upper lobe otherwise unremarkable exam. Patient will be evaluated with chest x-ray, laboratory evaluation, and pending unremarkable workup patient will be observed to clinical sobriety and reassessed. Patient has been seen and admitted multiple times for hypoxia, and qualified to require FiO2 at baseline, but patient has repeatedly refused oxygen or other intervention. As long as patient's oxygen level remains above 90 at rest, patient will not require readmission. 6:05 AM 09/06/2025 (Ryan WALLACE): The patient's laboratory evaluation has resulted and shows leukopenia, mild anemia, and thrombocytopenia, all of which are at the patient's baseline. No significant electrolyte abnormality, no RAVI, LFTs are unremarkable. BNP is normal. Ethanol level 153. Chest x-ray demonstrates improvement in previously noted edema. The patient's lactic acid initially increased despite fluid hydration, however after 2 L of IV fluid the patient's lactic acid is now downtrending. The patient's case has been discussed with oncoming physician Dr. Romero. We will continue to monitor to clinical sobriety. Admission/Observation Consideration of admission/observation: Escalation of care including admission/observation considered Lab Data MDM Lab Attestation statement: I reviewed the patient's lab results. 09/06/25 00:46 09/06/25 00:46 Labs: Lab Results 09/06/25 09/06/25 09/06/25 Range/Units 00:46 03:11 05:29 WBC 3.9 L (4.8-10.8) X10*3/uL RBC 3.33 L (4.60-5.80) X10*6/uL Hgb 10.1 L (14.0-18.0) g/dl Hct 31.6 L (42.0-52.0) % MCV 94.9 (80.0-98.0) fL MCH 30.3 (27.0-33.0) pg MCHC 32.0 (31.0-36.0) g/dl RDW 16.9 H (11.0-16.0) % Plt Count 50 L (160-400) X10*3/uL MPV Not Reportable Immature Gran % (Auto) 1.3 H (0.0-0.4) % Neut % (Auto) 65.9 (45-73) % Lymph % (Auto) 18.7 L (20-40) % [place] % (Auto) 10.5 (2-11) % Eos % (Auto) 2.6 (0-4) % Baso % (Auto) 1.0 (0-2) % Lymph # (Auto) 0.7 L (1.2-4.9) X10*3/uL [place] # (Auto) 0.4 (0.1-1.2) X10*3/uL Eos # (Auto) 0.1 (0.0-0.4) X10*3/uL Baso # (Auto) 0.0 (0.0-0.2) X10*3/uL Abs Immat Gran (auto) 0.05 H (0.00-0.03) X10*3/uL Absolute Neuts (auto) 2.6 (2.0-8.3) x10*3/uL Absolute Nucleated RBC 0.000 (0.0-0.012) X10*3/uL Nucleated RBC % (auto) 0.0 (0.0-0.2) /100WBC Smear Tech's Comments VERIFIED ESR (0-15) MM/HR Hold Blue Top SEE NOTE VBG pH (7.32-7.43) VBG pCO2 mmHg VBG pO2 mmHg VBG HCO3 (22-26) mmol/L VBG O2 Saturation % VBG Base Excess mmol/L Sodium 139 (135-145) mmol/L Potassium 3.8 (3.3-5.1) mmol/L Chloride 109 H (96-108) mmol/L Carbon Dioxide 19 L (22-29) mmol/L Anion Gap 15 (12-20) BUN 17 H (9-16) mg/dL Creatinine 1.03 (0.5-1.4) mg/dL Estim Creat Clear Calc 66.8 Estimated GFR > 60 Random Glucose 92 (60-115) mg/dL Lactic Acid 2.2 H* (0.5-2.0) mmol/L Lactic Acid F/U @ 2Hr 3.0 H* (0.5-2.0) mmol/L Lactic Acid F/U @ 4Hr 2.4 H* (0.5-2.0) mmol/L Calcium 8.5 (8.4-10.2) mg/dL Total Bilirubin 0.4 (0.0-1.0) mg/dL AST 36 (5-37) U/L ALT 9 (0-40) U/L Alkaline Phosphatase 113 (39-117) U/L C-Reactive Protein (< or = 0.50) mg/dL NT-Pro-B Natriuret Pep 62.2 (<300) pg/mL Total Protein 7.9 (6.5-8.0) g/dL Albumin 3.4 L (3.5-5.0) g/dL Urine Color Urine Appearance Urine pH (5.0-9.0) Ur Specific [place] (1.005-1.025) Urine Protein (Neg-Trace) mg/dL Urine Glucose (UA) (Negative) mg/dL Urine Ketones (Negative) mg/dL Urine Blood (Negative) Urine Nitrite (Negative) Ur Leukocyte Esterase (Negative) Urine RBC (0-2) /HPF Urine WBC (0-5) /HPF Ur Squamous Epith Cells (0-2) /HPF Urine Bacteria (None Seen) Hyaline Casts (0-2) /LPF Ethyl Alcohol 153 mg/dL COVID-19 (TAI) (Negative) COVID-19 Clin Com Influenza Type A ([place]) (Negative) Influenza Type B ([place]) (Negative) Influenza A & B Note 09/06/25 09/06/25 09/06/25 Range/Units 08:41 08:42 08:48 WBC (4.8-10.8) X10*3/uL RBC (4.60-5.80) X10*6/uL Hgb (14.0-18.0) g/dl Hct (42.0-52.0) % MCV (80.0-98.0) fL MCH (27.0-33.0) pg MCHC (31.0-36.0) g/dl RDW (11.0-16.0) % Plt Count (160-400) X10*3/uL MPV Immature Gran % (Auto) (0.0-0.4) % Neut % (Auto) (45-73) % Lymph % (Auto) (20-40) % [place] % (Auto) (2-11) % Eos % (Auto) (0-4) % Baso % (Auto) (0-2) % Lymph # (Auto) (1.2-4.9) X10*3/uL [place] # (Auto) (0.1-1.2) X10*3/uL Eos # (Auto) (0.0-0.4) X10*3/uL Baso # (Auto) (0.0-0.2) X10*3/uL Abs Immat Gran (auto) (0.00-0.03) X10*3/uL Absolute Neuts (auto) (2.0-8.3) x10*3/uL Absolute Nucleated RBC (0.0-0.012) X10*3/uL Nucleated RBC % (auto) (0.0-0.2) /100WBC Smear Tech's Comments ESR (0-15) MM/HR Hold Blue Top VBG pH 7.43 (7.32-7.43) VBG pCO2 29 mmHg VBG pO2 71 mmHg VBG HCO3 20 L (22-26) mmol/L VBG O2 Saturation 92.0 % VBG Base Excess -3.3 mmol/L Sodium (135-145) mmol/L Potassium (3.3-5.1) mmol/L Chloride (96-108) mmol/L Carbon Dioxide (22-29) mmol/L Anion Gap (12-20) BUN (9-16) mg/dL Creatinine (0.5-1.4) mg/dL Estim Creat Clear Calc Estimated GFR Random Glucose (60-115) mg/dL Lactic Acid (0.5-2.0) mmol/L Lactic Acid F/U @ 2Hr (0.5-2.0) mmol/L Lactic Acid F/U @ 4Hr (0.5-2.0) mmol/L Calcium (8.4-10.2) mg/dL Total Bilirubin (0.0-1.0) mg/dL AST (5-37) U/L ALT (0-40) U/L Alkaline Phosphatase (39-117) U/L C-Reactive Protein (< or = 0.50) mg/dL NT-Pro-B Natriuret Pep (<300) pg/mL Total Protein (6.5-8.0) g/dL Albumin (3.5-5.0) g/dL Urine Color Yellow Urine Appearance Clear Urine pH 6.5 (5.0-9.0) Ur Specific [place] 1.010 (1.005-1.025) Urine Protein Negative (Neg-Trace) mg/dL Urine Glucose (UA) Negative (Negative) mg/dL Urine Ketones Negative (Negative) mg/dL Urine Blood Negative (Negative) Urine Nitrite Negative (Negative) Ur Leukocyte Esterase Negative (Negative) Urine RBC 0-2 (0-2) /HPF Urine WBC 0-5 (0-5) /HPF Ur Squamous Epith Cells 0-2 (0-2) /HPF Urine Bacteria None Seen (None Seen) Hyaline Casts 0-2 (0-2) /LPF Ethyl Alcohol mg/dL COVID-19 (TAI) Negative (Negative) COVID-19 Clin Com See Note Influenza Type A ([place]) Negative (Negative) Influenza Type B ([place]) Negative (Negative) Influenza A & B Note See Note 09/06/25 Range/Units 08:50 WBC (4.8-10.8) X10*3/uL RBC (4.60-5.80) X10*6/uL Hgb (14.0-18.0) g/dl Hct (42.0-52.0) % MCV (80.0-98.0) fL MCH (27.0-33.0) pg MCHC (31.0-36.0) g/dl RDW (11.0-16.0) % Plt Count (160-400) X10*3/uL MPV Immature Gran % (Auto) (0.0-0.4) % Neut % (Auto) (45-73) % Lymph % (Auto) (20-40) % [place] % (Auto) (2-11) % Eos % (Auto) (0-4) % Baso % (Auto) (0-2) % Lymph # (Auto) (1.2-4.9) X10*3/uL [place] # (Auto) (0.1-1.2) X10*3/uL Eos # (Auto) (0.0-0.4) X10*3/uL Baso # (Auto) (0.0-0.2) X10*3/uL Abs Immat Gran (auto) (0.00-0.03) X10*3/uL Absolute Neuts (auto) (2.0-8.3) x10*3/uL Absolute Nucleated RBC (0.0-0.012) X10*3/uL Nucleated RBC % (auto) (0.0-0.2) /100WBC Smear Tech's Comments ESR 46 H (0-15) MM/HR Hold Blue Top VBG pH (7.32-7.43) VBG pCO2 mmHg VBG pO2 mmHg VBG HCO3 (22-26) mmol/L VBG O2 Saturation % VBG Base Excess mmol/L Sodium (135-145) mmol/L Potassium (3.3-5.1) mmol/L Chloride (96-108) mmol/L Carbon Dioxide (22-29) mmol/L Anion Gap (12-20) BUN (9-16) mg/dL Creatinine (0.5-1.4) mg/dL Estim Creat Clear Calc Estimated GFR Random Glucose (60-115) mg/dL Lactic Acid (0.5-2.0) mmol/L Lactic Acid F/U @ 2Hr (0.5-2.0) mmol/L Lactic Acid F/U @ 4Hr (0.5-2.0) mmol/L Calcium (8.4-10.2) mg/dL Total Bilirubin (0.0-1.0) mg/dL AST (5-37) U/L ALT (0-40) U/L Alkaline Phosphatase (39-117) U/L C-Reactive Protein 0.57 H (< or = 0.50) mg/dL NT-Pro-B Natriuret Pep (<300) pg/mL Total Protein (6.5-8.0) g/dL Albumin (3.5-5.0) g/dL Urine Color Urine Appearance Urine pH (5.0-9.0) Ur Specific [place] (1.005-1.025) Urine Protein (Neg-Trace) mg/dL Urine Glucose (UA) (Negative) mg/dL Urine Ketones (Negative) mg/dL Urine Blood (Negative) Urine Nitrite (Negative) Ur Leukocyte Esterase (Negative) Urine RBC (0-2) /HPF Urine WBC (0-5) /HPF Ur Squamous Epith Cells (0-2) /HPF Urine Bacteria (None Seen) Hyaline Casts (0-2) /LPF Ethyl Alcohol mg/dL COVID-19 (TAI) (Negative) COVID-19 Clin Com Influenza Type A ([place]) (Negative) Influenza Type B ([place]) (Negative) Influenza A & B Note Radiology Impression Discussion of test interpretation with radiology: I have reviewed the radiologist's reading. External Record Review External record reviewed: Inpatient record and Outpatient record Discharge Plan Discharge Clinical Impression: COPD (chronic obstructive pulmonary disease) Qualifiers: COPD type: unspecified COPD Qualified Code(s): J44.9 - Chronic obstructive pulmonary disease, unspecified Patient Disposition: Left Against Medical Advice Additional Instructions: We discussed you being admitted to the hospital but you have opted to leave against medical advice. If you change your mind or get worse, please call 911 or proceed to your nearest emergency department. Prescriptions: No Action No Known Home Meds Print Language: Ukrainian
[2025-09-06] MEDS: Albuterol Sulfate 7.5 MG, Albuterol Sulfate (0.083%) 2.5 MG 10 MG INHALE (00:46)
[2025-09-06 00:57] LABS: Hematocrit 31.6 % (42.0-52.0); Hemoglobin 10.1 g/dl (14.0-18.0); Imm Gran Abs Auto 0.05 X10*3/uL (0.00-0.03); Imm Gran Pct Auto 1.3 % (0.0-0.4); Lymphocytes Absolute Auto 0.7 X10*3/uL (1.2-4.9); MANUAL DIFF FLAG SCAN; Mean Corpuscular HGB Conc 32.0 g/dl (31.0-36.0); Mean Corpuscular Hemoglobin 30.3 pg (27.0-33.0); Mean Corpuscular Volume 94.9 fL (80.0-98.0); NRBC Abs Auto 0.000 X10*3/uL (0.0-0.012); NRBC Pct Auto 0.0 /100WBC (0.0-0.2); PLT CLUMP 1; Red Blood Count 3.33 X10*6/uL (4.60-5.80); SCAN SMEAR FLAG 1
[2025-09-06 01:10] LABS: Alanine Aminotransferase 9 U/L (0-40); Albumin Level 3.4 g/dL (3.5-5.0); Alkaline Phosphatase 113 U/L (39-117); Anion Gap 15 (12-20); Aspartate Amino Transferase 36 U/L (5-37); Blood Urea Nitrogen 17 mg/dL (9-16); Calcium 8.5 mg/dL (8.4-10.2); Carbon Dioxide 19 mmol/L (22-29); Chloride 109 mmol/L (96-108); Creatinine Clr Calc Pharmacy 66.8; Estimated Glomerular Filt Rate > 60; Potassium 3.8 mmol/L (3.3-5.1); Sodium 139 mmol/L (135-145); Total Protein 7.9 g/dL (6.5-8.0)
[2025-09-06 01:15] LABS: NT Pro B Type Natriuretic Pept 62.2 pg/mL (<300)
[2025-09-06 01:16] LABS: White Blood Count 3.9 X10*3/uL (4.8-10.8)
[2025-09-06 01:18] LABS: Platelet Count 50 X10*3/uL (160-400)
[2025-09-06 02:51] LABS: Reflex Lactate? Lactic Acid Added
[2025-09-06 03:32] LABS: ~Lactic Acid-LAB USE ONLY 3.0 mmol/L (0.5-2.0)
--- NOTE | 2025-09-06 03:43 | PC.NURSE ---
critical lab of lactic reported to LAURA Gomez.
[2025-09-06 05:15] LABS: Reflex Lactate? 2 Y
[2025-09-06 05:59] LABS: ~Lactic Acid-LAB USE ONLY 2.4 mmol/L (0.5-2.0)
[2025-09-06 08:49] LABS: Appearance Urine Clear; Glucose Urine UA Negative (Negative); PH 6.5 (5.0-9.0); Specific Gravity - Urine 1.010 (1.005-1.025)
[2025-09-06 08:52] LABS: VBG HCO3 20 mmol/L (22-26); VBG O2 % Saturation 92.0 %
[2025-09-06 08:54] LABS: Venous Blood Gas Refer to POC result
[2025-09-06] MEDS: Albuterol Sulfate 2.5 MG, Albuterol/Iprat 2.5/0.5MG 3 ML 3 ML INHALE (09:01)
--- NOTE | 2025-09-06 09:04 | PC.NURSE ---
Assumed care of pt at 0700. Pt resting in bed with eyes closed, respirations even and unlabored. Pt remains on 4L O2 NC- O2 sat 88-90% Pt placed on assistant cook- HR 80s, denies CP/SOB, vitals updated in worklist- BP noted to be soft 90s/50s. Pt repositioned in bed, rectal temp 100.0. CIWA 5- pt states mild anxiety/slightly diaphoretic. Denies any pain/difficult breathing. Abril WALLACE made aware- blood cultures obtained/additional labs. Call harris within reach, all needs met at this time.
[2025-09-06 09:13] LABS: COVID-19 Test Negative (Negative); IDNOW Serial# 55D5AD1C; IDNOW Serial# 58CA691E; Influenza B2 Negative (Negative)
[2025-09-06 09:43] LABS: Erythrocyte Sedimentation Rate 46 MM/HR (0-15)
[2025-09-06] MEDS: iohexoL 350 MG/ML 100 ML INFUS..BTL IV (09:59)
--- NOTE | 2025-09-06 11:13 | PC.NURSE ---
Pt up oob attempting to leave. MADISON Samuels aware of situation- pt will leave, verbal AMA. IV line removed, refused vitals on d/c. Pt ambulated out of ED with steady gait.
== END 2025-09-06 11:17 | disposition left against medical advice (07) ==
PROVIDERS: Physician Assistant; Physician Assistant Medical; Emergency Provider Emergency Medicine
DX: J44.9 Chronic obstructive pulmonary disease, unspecified (principal); R09.02 Hypoxemia; R06.02 Shortness of breath; F10.129 Alcohol abuse with intoxication, unspecified; Y90.6 Blood alcohol level of 120-199 mg/100 ml; M25.571 Pain in right ankle and joints of right foot; M54.9 Dorsalgia, unspecified; Z53.29 Procedure and treatment not carried out because of patient's decision for other reasons; Z03.818 Encounter for observation for suspected exposure to other biological agents ruled out
CPT/HCPCS: 36415; 71045; 71275; 80053; 80307; 81001; 82803; 83605; 83880; 85025; 85652; 86140; 87040; 87502; 87635; 94640; 96361; 96365; 96367; 99285; J0131; J0696; Q9967

== ENCOUNTER → 2025-09-06 00:25 | Outpatient (BNV) | payer MEDICAID, SELFPAY | PROVIDERS: Emergency Provider Emergency Medicine; Visit Provider Radiology Diagnostic Radiology | DX: J90 Pleural effusion, not elsewhere classified (principal); J98.11 Atelectasis; S22.069A Unspecified fracture of T7-T8 vertebra, initial encounter for closed fracture; K44.9 Diaphragmatic hernia without obstruction or gangrene; R06.02 Shortness of breath | CPT/HCPCS: 71045; 71275 ==

== ENCOUNTER 2025-09-08 21:40 | Emergency (ER) | payer MEDICAID, SELFPAY ==
[2025-09-08 21:53] VITALS: BP 118/75; PULSE 75; RESP 16; TEMP 36.6; O2SAT 85
[2025-09-08 22:00] VITALS: BP 140/70; PULSE 78; O2SAT 95; BMI 20.2
[2025-09-08 22:07] VITALS: O2SAT 100
--- OUTSIDE RECORDS SUMMARY | 2025-09-08 22:18 | XMS_ITS | Encounter Summary ---
Author Organization [facility] Address [address] [place] [address] [place] [address] Care Team Providers Care Billing Representative Name Role Phone Unavailable Primary Care Provider Unavailabl e Encounter Details Date Type Department Care Team (Latest Contact Info) Description 09/08/2025 Results Follow-Up [facility] Information Management [address] [place] [address] External Provider, [facility] CTA Chest PE Protocal, XR Chest 1 View Social History Tobacco [...]
--- OUTSIDE RECORDS SUMMARY | 2025-09-08 22:18 | XMS_ITS | Encounter Summary ---
Author Organization [employer] Address [address] [place] [address] 7 [place] [address] Care Team Providers Care Price Economist Name Role Phone Unavailable Primary Care Provider Unavailabl e Encounter Details Date Type Department Care Team (Late st Contact Info) Description 09/06/2025 Orders Only [facility] External Provider, [facility] Social History Tobacco Use Types [...] Name Type Priority Associated Diagnoses Date /Time Blood Culture (First) Microbiology Routine 09/06/2025 8:41 AM EDT Blood Culture (Second) Microbiology Routine 09/06/2025 8:50 AM EDT documented as of this encounter Procedures Procedure Name Priority Date/Time Associated Diagnosis Comments CTA CHEST PE PROTOCAL Routine 09/06/2025 12:04 PM EDT BLOOD CULTURE (SECOND) Routine 8:50 AM EDT SED RATE BY MODIFIED WESTERGREN Routine 09/06/2025 8:50 AM EDT C-REACTIVE PROTEIN Routine 09/06/2025 8: 50 AM EDT VENOUS BLOOD GAS Routine 09/06/2025 8:48 AM EDT INFLUENZA A B2 ID NOW (YARBROUGH) Routine 09/06/2025 8:42 AM EDT COVID-19 ID NOW (YARBROUGH) Routine 09/06/2025 8:42 AM EDT BLOOD CULTURE (FIRST) Routine 09/06/2025 8:41 AM EDT URINALYSIS, COMPLETE, WITH REFLEX TO CULTURE Routine 09/06/2025 8:41 AM EDT LACTIC ACID LAB USE ONLY Routine 09/06/2025 5:29 AM EDT LACTIC ACID LAB USE ONLY Routine 09/06/2025 3:11 AM EDT XR CHEST 1 VIEW Routine 09/06/2025 12:54 AM EDT SLIDE REVIEW Routine 09/06/2025 12:46 AM EDT HOLD LT BLUE - POSSIBLE COAG Routine 09/06/2025 12:46 AM EDT ETHANOL Routine 09/06/2025 12:46 AM EDT NT-PROBNP Routine 09/06/2025 12:46 AM EDT CBC WITH AUTO DIFFERENTIAL Routine 09/06/2025 12:46 AM EDT LACTIC ACID Routine 09/06/2025 12:46 AM EDT COMPREHENSIVE METABOLIC PANEL Routine 09/06/2025 12:46 AM EDT documented in this encounter Results * CTA Chest PE Protocal (09/06/2025 12:04 PM EDT) Anatomical Region Laterality Modality Body, Chest Computed Tomogra phy 09/06/2025 12:0 4 PM EDT Narrative 09/06/2025 12:06 PM EDT [address] [address] [address] Scan Report Signed Patient: Charbel Delgado MR#: [id number] : 1970 Acct:[id number] Age/Sex: 55 / M ADM Date: 09/06/25 Loc: HO.ED Attending Dr: Ordering Physician: Abril Sam Date of Service: 09/06/25 Procedure(s): CT angio chest PE protocol Accession Number(s): [id number] cc: Abril Sam; [facility] Report Number: [id number]: Total DLP = 188.00 mGy-cm Reason for Exam: SOB, hypoxia CLINICAL HISTORY: SOB, hypoxia CT angiography chest with contrast. 3D Postprocessing. Comparison: CT - CT ANGIO CHEST PE PROTOCOL - 09/06/25 09:43 EDT Findings: The heart size is normal. RV/LV ratio is normal. Unremarkable thoracic aorta and great vessels. No aneurysm. No acute pulmonary embolus. There is a moderate size hiatal hernia. There is a small left effusion with left basilar atelectasis/pneumonia. Right basilar atelectasis is also noted. The visualized upper abdomen is unremarkable. There is a severe chronic compression fracture of T8. IMPRESSION: 1. No pulmonary emboli. 2. Small left effusion with left basilar atelectasis. Pneumonia is not excluded. 3. Severe chronic compression fracture of T8. 4. Moderate hiatal hernia. This document has been electronically signed by: Christian Beard MD on 09/06/2025 12:04:37 Dictated By: Christian Beard MD Signed By: <Electronically signed by Christian Beard MD in OV> 09/06/25 1205 DD/ 120 TD/TT: 09/06/25 120 Combination Operator: Procedure Note Donotuseinterpreter, Image - 09/06/[address] [address] [address] Scan Report Signed Patient: Isaias Delgado#: [id number] : 1970Acct:[id number] Age/Sex: 55 / MADM Date: 09/06/25 Loc: .ED Attending Dr: Ordering Physician: Abril Sam Date of Service: 09/06/25 Procedure(s): CT angio chest PE protocol Accession Number(s): [id number] cc: Abril Sam; [facility] Report Number: [id number]: Total DLP = 188.00 mGy-cm Reason for Exam: SOB, hypoxia CLINICAL HISTORY: SOB, hypoxia CT angiography chest with contrast. 3D Postprocessing. Comparison: CT - CT ANGIO CHEST PE PROTOCOL - 09/06/25 09:43 EDT Findings: The heart size is normal. RV/LV ratio is normal. Unremarkable thoracic aorta and great vessels. No aneurysm. No acute pulmonary embolus. There is a moderate size hiatal hernia. There is a small left effusion with left basilar atelectasis/pneumonia. Right basilar atelectasis is also noted. The visualized upper abdomen is unremarkable. There is a severe chronic compression fracture of T8. IMPRESSION: 1. No pulmonary emboli. 2. Small left effusion with left basilar atelectasis. Pneumonia is not excluded. 3. Severe chronic compression fracture of T8. 4. Moderate hiatal hernia. This document has been electronically signed by: Christian Beard MD on 09/06/2025 12:04:37 Dictated By: Christian Beard MD Signed By: <Electronically signed by Christian Beard MD in OV> 09/06/25 1205 DD/ 1204 TD/TT: 09/06/25 1204 Combination Operator: [facility] External Provider IMG CT PROCEDURES Edited Result - Final * (ABNORMAL) Sed Rate by Modified Mela (09/06/2025 8:50 AM EDT) [facility] Erythrocyte Sedimentation Rate 46(H) 0 - 15 MM/HR [facility] Comment:Patients with polycy themia and many hemoglobin abnormalitiesmay have depressed sed rates whereas patients with anemiamay have elevated sed rates. 09/06/2025 8:50 AM EDT 09/06/2025 8:54 AM EDT Generic External Data Provider LAB BLOOD ORDERAB LES Final Result [facility] [address] [place] [phone] * (ABNORMAL) C-reactive Protein (09/06/2025 8:50 AM EDT) [facility] C Reactive Protein 0.57(H) < or = 0.50 mg/dL [facility] 09/06/2025 8:50 AM EDT 09/06/2025 8:54 AM EDT us Generic External Data Provider LAB BLOOD ORDERAB LES Final Result Performing Organization Address [facility]/ZIP Co de Phone Number [facility] [address] [place] [phone] * (ABNORMAL) VENOUS BLOOD GAS (09/06/2025 8:48 AM EDT) [facility] VBG pH 7.43 7.32 - 7.43 [facility] Comment:METER #: [id number] additional_comment: Cb gentcrysj VBG PCO2 29 mmHg [facility] Comment:METER #: [id number] additional_comment: Cb gentilj VBG PO2 71 mmHg [facility] Comment:METER #: [id number] additional_comment: Cb gentilj VBG Base Excess -3.3 mmol/L [facility] Comment:METER #: [id number] additional_comment: Cb gentilj VBG HCO3 20(L) 22 - 26 mmol/L [facility] Comment:METER #: [id number] additional_comment: Cb claudiaj O2 Sat, Demetrio 92.0 % [facility] Comment:METER #: [id number] additional_comment: Cb claudiaj 09/06/2025 8:48 AM EDT 09/06/2025 8:51 AM EDT us Generic External Data Provider LAB BLOOD ORDERAB LES Final Result Performing Organization Address [facility]/ZIP Co de Phone Number [facility] [address] [place] [phone] * COVID-19 ID NOW (YARBROUGH) (09/06/2025 8:42 AM EDT) [facility] IDNOW SERIAL# [id number] [facility] COVID-19 TEST Negative Negative [facility] COVID-19 NOTE See Note [facility] Comment: Results are for the identification of SARS-CoV2 RNA. TheSARS-CoV2 RNA is generally detectable in respiratory samplesduring the acute phase of infection. Positive results areindicative of the presence of SARS-CoV-2 RNA; clinicalcorrelation with patient history and other diagnosticinformation is necessary to determine patient infectionstatus. Positive results do not rule out bacterial infectionor co- infection with other viruses.Testing facilities within the [facility] are required to report all positive results tothe appropriate public health authorities.Negative results should be treated as presumptive and, ifinconsistent with clinical signs and symptoms or necessaryfor patient management, should be tested with differentauthorized or cleared molecular tests. Negative results donot preclude SARS-CoV2 RNA infection and should not be usedas the sole basis for patient management decisions. Negativeresults should be considered in the context of a patient'srecent exposures, history and the presence of clinical signsand symptoms consistent with COVID-19.This test has been authorized by the FDA under an EmergencyUse Authorization (EUA) for use by authorized laboratories.Testing performed on the [facility] ID NOW utilizing NAAT. 09/06/2025 8:42 AM EDT 09/06/2025 8:46 AM EDT us Generic External Data Provider LAB MOLECULAR YAO GNOSTICS ORDERABLES Final Result [facility] [address] [place] [phone] * Influenza A B2 ID NOW (Yarbrough) (09/06/2025 8:42 AM EDT) IDNOW SERIAL# [id number] [facility] Influenza A Negative Negative [facility] Influenza B2 Negative Negative [facility] Influenza A B2 Note See Note [facility] Comment:The Yarbrough ID NOW In fluenza A B2 test is used for thequalitative detection of influenza A and B from patientswith signs and symptoms of respiratory infection.Negative results do not preclude influenza virus infectionand should not be used as the sole basis for diagnosis,treatment or other patient management decisions.There is a risk of false negative results due to thepresence of variants in the viral targets of the assay, lowlevels of virus in the specimen and co- infection withRespiratory Syncytial Virus. 09/06/2025 8:42 AM EDT 09/06/2025 8:46 AM EDT Generic External Data Provider LAB MICROBIOLOGY - GENERAL ORDERABLES Final Result [facility] [address] [place] [phone] * Urinalysis, Complete, with Reflex to Culture (09/06/2025 8:41 AM EDT) Color Urine Yellow [facility] Appearance Urine Clear [facility] PH 6.5 5.0 - 9.0 [facility] Glucose Urine UA Negative Negative mg/dL [facility] Urine Blood Negative Negative [facility] Specific [place] - Urine 1.010 1.005 - 1.025 [facility] Urine Protein Negative Neg-Trace mg/dL [facility] Urine Ketones Negative Negative mg/dL [facility] Nitrite Urine Negative Negative [facility] Leukocyte Esterase Urine Negative Negative [facility] RBC Urine 0-2 0 - 2 /HPF [facility] Urine WBC 0-5 0 - 5 /HPF [facility] Urine Squamous Epithelial Cell 0-2 0 - 2 /HPF [facility] Urine Bacteria None Seen None Seen [facility] Hyaline Casts, Urine 0-2 0 - 2 /LPF [facility] 09/06/2025 8:41 AM EDT 09/06/2025 8:46 AM EDT Narrative [facility] - 09/06/2025 8:58 AM EDT [id number], Clean Catch Generic External Data Provider LAB URINE ORDERAB LES Final Result Performing Organization Address [facility] de Phone Number [facility] [address] [place] [phone] * (ABNORMAL) Lactic Acid (09/06/2025 5:29 AM EDT) Lactic Acid 2.4(HH) 0.5 - 2.0 mmol/L [facility] Comment:Critical value for t est(s):LACTIC ACID Results called toand read back by: ELIU Person calling:AMINATA Date:09/06/25 Time:0558 09/06/2025 5:29 AM EDT 09/06/2025 5:33 AM EDT Generic External Data Provider LAB BLOOD ORDERAB LES Final Result Performing Organization Address [facility] de Phone Number [facility] [address] [place] [phone] * (ABNORMAL) Lactic Acid (09/06/2025 3:11 AM EDT) Lactic Acid 3.0(HH) 0.5 - 2.0 mmol/L [facility] Comment:Critical value for t est(s):LACTIC ACID Results called toand read back by:ALIA Person calling:ALEate:09/06/25 Time:033 09/06/2025 3:11 AM EDT 09/06/2025 3:15 AM EDT Generic External Data Provider LAB BLOOD ORDERAB LES Final Result Performing Organization Address [facility] de Phone Number [facility] [address] [place] [phone] * XR Chest 1 View (09/06/2025 12:54 AM EDT) Anatomical Region Laterality Modality Chest Radiographic Lamar ging 09/06/2025 12:5 4 AM EDT Narrative 09/06/2025 12:57 AM EDT [address] [address] XRay Report Signed Patient: Charbel Delgado MR#: [id number] : 1970 Acct:[id number] Age/Sex: 55 / M ADM Date: 09/06/25 Loc: HO.ED Attending Dr: Ordering Physician: David Galvez PA-C Date of Service: 09/06/25 Procedure(s): XR chest 1V Accession Number(s): [id number] cc: [facility]; David Galvez PA-C Reason for Exam: Hypoxia CLINICAL HISTORY: Hypoxia 1 view chest x-ray Comparison: CR/SR - XR CHEST 2 VIEWS - 09/03/25 12:22 EDT Findings: Mildly decreased left retrocardiac patchy opacities with increasing air bronchograms. Diffuse bronchial wall thickening. No significant pleural effusion or pneumothorax. Similar prominent/enlarged cardiac silhouette. No acute fracture. IMPRESSION: Mildly improved exam from prior. This document has been electronically signed by: Randal Mendoza MD on 09/06/2025 00:54:28 Dictated By: Randal Mendoza MD Signed By: <Electronically signed by Randal Mendoza MD in OV> 09/06/2555 DD/ TD/TT: 09/06/2553 Combination Operator: Procedure Note Donotuseinterpreter, Image - 09/06/[address] [address] XRay Report Signed Patient: Rod DelgadoR#: [id number] : 1970Acct:[id number] Age/Sex: 55 / MADM Date: 09/06/25 Loc: HO.ED Attending Dr: Ordering Physician: David Galvez PA-C Date of Service: 09/06/25 Procedure(s): XR chest 1V Accession Number(s): [id number] cc: [facility]; David Galvez PA-C Reason for Exam: Hypoxia CLINICAL HISTORY: Hypoxia 1 view chest x-ray Comparison: CR/SR - XR CHEST 2 VIEWS - 09/03/25 12:22 EDT Findings: Mildly decreased left retrocardiac patchy opacities with increasing air bronchograms. Diffuse bronchial wall thickening. No significant pleural effusion or pneumothorax. Similar prominent/enlarged cardiac silhouette. No acute fracture. IMPRESSION: Mildly improved exam from prior. This document has been electronically signed by: Randal Mendoza MD on 09/06/2025 00:54:28 Dictated By: Randal Mendoza MD Signed By: <Electronically signed by Randal Mendoza MD in OV> 09/06/2555 DD/ TD/TT: 09/06/2553 Combination Operator: [facility] External Provider IMG XR PROCEDURES Final Result * Slide Review (09/06/2025 12:46 AM EDT) Slide Review VERIFIED [facility] 09/06/2025 12:4 6 AM EDT 09/06/2025 12:51 AM EDT Generic External Data Provider LAB BLOOD ORDERAB LES Final Result [facility] [address] [place] [phone] * (ABNORMAL) CBC auto differential (09/06/2025 12:46 AM EDT) White Blood Count 3.9(L) 4.8 - 10.8 X10*3/uL [facility] Red Blood Count 3.33(L) 4.60 - 5.80 X10*6/uL [facility] Hemoglobin 10.1(L) 14.0 - 18.0 g/dl [facility] Hematocrit 31.6(L) 42.0 - 52.0 % [facility] Mean Corpuscular Volume 94.9 80.0 - 98.0 fL [facility] Mean Corpuscular Hemoglobin 30.3 27.0 - 33.0 pg [facility] Mean Corpuscular HGB Conc 32.0 31.0 - 36.0 g/dl [facility] Red Cell Distribution Width 16.9(H) 11.0 - 16.0 % [facility] Platelet Count 50(L) 160 - 400 X10*3/uL [facility] Neutrophils Percent Auto 65.9 45 - 73 % [facility] Imm Gran Pct Auto 1.3(H) 0.0 - 0.4 % [facility] Lymphocytes Percent Auto 18.7(L) 20 - 40 % [facility] Monocytes Percent Auto 10.5 2 - 11 % [facility] Eosinophils Percent Auto 2.6 0 - 4 % [facility] Basophils Percent Auto 1.0 0 - 2 % [facility] NRBC Pct Auto 0.0 0.0 - 0.2 /100WBC [facility] Neutrophils Absolute Auto 2.6 2.0 - 8.3 x10*3/uL [facility] Imm Gran Abs Auto 0.05(H) 0.00 - 0.03 X10*3/uL [facility] Lymphocytes Absolute Auto 0.7(L) 1.2 - 4.9 X10*3/uL [facility] Monocytes Absolute Auto 0.4 0.1 - 1.2 X10*3/uL [facility] Eosinophils Absolute Auto 0.1 0.0 - 0.4 X10*3/uL [facility] Basophils Absolute Auto 0.0 0.0 - 0.2 X10*3/uL [facility] NRBC Abs Auto 0.000 0.0 - 0.012 X10*3/uL [facility] 09/06/2025 12:4 6 AM EDT 09/06/2025 12:51 AM EDT us Generic External Data Provider LAB BLOOD ORDERAB LES Edited Result - Final [facility] [address] [place] [phone] * NT-proBNP (09/06/2025 12:46 AM EDT) [facility] NT-proBNP 62.2 <300 pg/mL [facility] Comment:Reference Range:Age Group (years) NT-proBNP (pg/ml) InterpretationAll <300 Negative: HF unlikelyFor patients presenting to the ED with clinical suspicion ofnew onset or worsening HF, see below:18 to <50 >299.9 to <450.0 Grayzone: [id number] to 75 >299.9 to <900.0 other causes of>75 >299.9 to <1800.0 NT-proBNP [id number] to <50 >449.9 Positive: HF [id number] >899.9>75 >1799.9Note: Elevated NT-proBNP levels should be interpreted inthe context of other clinical information. 09/06/2025 12:4 6 AM EDT 09/06/2025 12:51 AM EDT Generic External Data Provider LAB BLOOD ORDERAB LES Final Result Performing Organization Address City/[facility] Co de Phone Number [facility] [address] [place] [phone] * (ABNORMAL) Lactic Acid (09/06/2025 12:46 AM EDT) [facility] Lactic Acid 2.2(HH) 0.5 - 2.0 mmol/L [facility] Comment:Critical value for t est(s): LACTIC ACID Results called toand read back by: NEFTALI Person calling:ALEate:09/06/25 Time:0113 09/06/2025 12:4 6 AM EDT 09/06/2025 12:51 AM EDT us Generic External Data Provider LAB BLOOD ORDERAB LES Final Result Performing Organization Address City/[facility]/ZIP Co de Phone Number [facility] [address] [place] [phone] * Ethanol (09/06/2025 12:46 AM EDT) ETHANOL (MG/DL) IN SER/PLAS 153 mg/dL [facility] Comment:Serum/plasma ethanol results are to be used formedical/treatment purposes only. 09/06/2025 12:4 6 AM EDT 09/06/2025 12:51 AM EDT us Generic External Data Provider LAB BLOOD ORDERAB LES Final Result [facility] [address] [place] [phone] * (ABNORMAL) Comprehensive Metabolic Panel (09/06/2025 12:46 AM EDT) Pathologist [facility] Sodium 139 135 - 145 mmol/L [facility] Potassium 3.8 3.3 - 5.1 mmol/L [facility] Chloride 109(H) 96 - 108 mmol/L [facility] Carbon Dioxide 19(L) 22 - 29 mmol/L [facility] Anion Gap 15 12 - 20 [facility] Urea Nitrogen (BUN) 17(H) 9 - 16 mg/dL [facility] Creatinine, Serum 1.03 0.5 - 1.4 mg/dL [facility] Creatinine Clr Calc Pharmacy 66.8 [facility] Comment:eGFR (calculated fro m the MDRD study equation) and eCrCl(calculated from the Cockcroft-Gault equation) are based ondifferent parameters and may not yield comparable results.If eCrCl result is absurd, please check patient'sheight/weight. Estimated Glomerular Filt Rate >60 [facility] Comment:Chronic Kidney Disea se: Estimated GFR < 60 mL/min/1.68s9Zrubzb Kidney Disease: Estimated GFR < 15 mL/min/1.73m2 Glucose 92 60 - 115 mg/dL [facility] Calcium 8.5 8.4 - 10.2 mg/dL [facility] Bilirubin, Total 0.4 0.0 - 1.0 mg/dL [facility] Aspartate Amino Transferase 36 5 - 37 U/L [facility] Alanine Aminotransferase 9 0 - 40 U/L [facility] Total Protein 7.9 6.5 - 8.0 g/dL [facility] Albumin Level 3.4(L) 3.5 - 5.0 g/dL [facility] Alkaline Phosphatase 113 39 - 117 U/L [facility] 09/06/2025 12:4 6 AM EDT 09/06/2025 12:51 AM EDT us Generic External Data Provider LAB BLOOD ORDERAB LES Final Result Performing Organization Address City/[facility]/ZIP Co de Phone Number [facility] [address] [place] [phone] * HOLD LT BLUE - POSSIBLE COAG (09/06/2025 12:46 AM EDT) Hold Lt Blue - Possible Coag SEE NOTE [facility] Comment:Specimen will be hel d untested for 4 hours. Call Hematologyif testing is desired. 09/06/2025 12:4 6 AM EDT 09/06/2025 12:54 AM EDT us Generic External Data Provider LAB BLOOD ORDERAB LES Final Result Performing Organization Address [facility] Co de Phone Number [facility] [address] [place] [address] [phone] documented in this encounter Visit Diagnoses Not on filedocumented in this encounter
--- OUTSIDE RECORDS SUMMARY | 2025-09-08 22:18 | XMS_ITS | Encounter Summary ---
Author Organization [facility] Address [address] [place] [phone] Phone Care Team Providers Care Organisation And Methods Analyst Name Role Phone [facility] Primary Care Provider Pcp, Unknown Unavailable Unavailable Encounter Details Date Type Department Care Team ([facility] st Contact Info) Description 10/31/2023 Procedure Pass [facility]oscopy Admitting Dept Virtual Department [address] [place] [phone] Social History Tobacco Use Types Packs/Day Years [...] on filedocumented in this encounter Care Teams Organisation And Methods Analyst Relationship Specialty Start Date End Date [facility] [address] [place] [address] PCP - General 10/07/23 Pcp, Unknown 10/07/23 documented as of this encounter Additional Source Comments The information contained in this document represents components of the legal health record. It is not the complete legal health record.[facility]
--- OUTSIDE RECORDS SUMMARY | 2025-09-08 22:18 | XMS_ITS | Encounter Summary ---
Author Organization [facility] Address [address] [place] [phone] Phone Care Team Providers Care Senior Bioinformatics Scientist Name Role Phone Elbert Hayward MD Primary Care Provider [facility], [facility] Primary Care Provider Pcp, Unknown Unavailable Unavailable Encounter Details Date Type Department Care Team (Late st Contact Info) Description 10/06/2023 Procedure Pass [facility], Ct Scan - [address] [id number] Social History Tobacco Use Types Packs/Day Years [...] filedocumented in this encounter Care Teams Senior Bioinformatics Scientist Relationship Specialty Start Date End Date Elbert Hayward MD PCP - General 05/13/14 10/06/23 [facility], [place] [address] [place] [address] PCP - General 10/07/23 Pcp, Unknown 10/07/23 documented as of this encounter Additional Source Comments The information contained in this document represents components of the legal health record. It is not the complete legal health record.[facility]
--- OUTSIDE RECORDS SUMMARY | 2025-09-08 22:19 | XMS_ITS | Clinical Summary ---
Author Organization [facility] Address [address] [place] [address] 7 [place] [address] Care Team Providers Care Bottle Gauger Name Role Phone Unavailable Primary Care Provider [...] Encounters Date Type Department Care Team Description 09/08/2025 Results Follow-Up [facility] Care Information Management [address] [place] [address] External Provider, [facility] CTA Chest PE Protocal, XR Chest 1 View 09/06/2025 Orders Only [facility] External Provider, [facility] 09/03/2025 Results Follow-Up [facility] Care Information [facility] [address] [place] [address] Provider, Generic External Data XR Chest 2 Views 09/03/2025 Orders Only GENER[facility] EXTERNAL DATA DEPARTMENT Provider, Generic External Data 08/21/2025 Orders Only GENERIC EXTERNAL DATA DEPARTMENT Provider, Generic External Data 08/14/2025 Orders Only [facility] External Provider, [facility] 08/04/2025 Patient Outreach [facility] [address] [place] [address] Conor Vidal Care Coordination ([facility]/W Conor Vidal, TC #6 outreach_closed ) 07/21/2025 Patient Outreach [facility] [address] [place] [address] Conor Vidal 07/08/2025 Patient Outreach [facility] [address] [place], [place] [phone] Missy Milner, LAURA 07/07/2025 Telephone [facility] [address] [place] [address] Mihaela Zhong, LAURA 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 07/06/2025 Orders Only GENERIC EXTERNAL DATA DEPARTMENT Provider, Generic External Data 07/02/2025 Orders Only [facility] External Provider, [facility] 07/01/2025 Patient Outreach [facility] [address] [place] [address] Missy Milner, LAURA Care Coordination ([facility] Conor Vidal, TC #5 initial outreach attempt_lvm) 06/19/2025 Results Follow-Up [facility] Information Management [address] [place] [address] Provider, Generic External Data XR Chest 2 Views 06/19/2025 Results Follow-Up [facility] Care Information Management [address] [place] [address] External Provider, [facility] CT Chest w/ Contrast 06/19/2025 Orders Only [facility] External Provider, [facility] 06/18/2025 Orders Only GENERIC EXTERNAL DATA DEPARTMENT Provider, Generic External Data 06/11/2025 Travel 06/09/2025 Results Follow-Up [facility] Care Information Management [address] [place] [address] Provider, Generic External Data XR Chest 1 View 06/08/2025 Orders Only GENERIC EXTERNAL DATA DEPARTMENT Provider, Generic External Data from Last 3 Months Immunizations Immunization Administration Dates Next Due Kriyari SARS-CoV-2 Vaccination 04/28/2021 Pfizer Covid-19 Vaccine 12+ [...] PE PROTOCAL Routine 09/06/2025 12:04 PM EDT SED RATE BY MODIFIED WESTERGREN Routine 09/06/2025 8:50 AM EDT C-REACTIVE PROTEIN Routine 09/06/2025 8: 50 AM EDT BLOOD CULTURE (SECOND) Routine 8:50 AM EDT VENOUS BLOOD GAS Routine 09/06/2025 8:48 AM EDT COVID-19 ID NOW ([employer]) Routine 09/06/2025 8:42 AM EDT INFLUENZA A B2 ID NOW ([employer]) Routine 09/06/2025 8:42 AM EDT URINALYSIS, COMPLETE, WITH REFLEX TO CULTURE Routine 09/06/2025 8:41 AM EDT BLOOD CULTURE (FIRST) Routine 09/06/2025 8:41 AM EDT LACTIC ACID LAB USE ONLY Routine 09/06/2025 5:29 AM EDT LACTIC ACID LAB USE ONLY Routine 09/06/2025 3:11 AM EDT XR CHEST 1 VIEW Routine 09/06/2025 12:54 AM EDT SLIDE REVIEW Routine 09/06/2025 12:46 AM EDT CBC WITH AUTO DIFFERENTIAL Routine 09/06/2025 12:46 AM EDT NT-PROBNP Routine 09/06/2025 12:46 AM EDT LACTIC ACID Routine 09/06/2025 12:46 AM EDT ETHANOL Routine 09/06/2025 12:46 AM EDT COMPREHENSIVE METABOLIC PANEL Routine 09/06/2025 12:46 AM EDT HOLD LT BLUE - POSSIBLE COAG Routine 09/06/2025 12:46 AM EDT HIGH SENSITIVITY TROPONIN I Routine 09/03/2025 2:15 PM EDT LACTIC ACID LAB USE ONLY Routine 09/03/2025 2:15 PM EDT XR CHEST 2 VIEWS Routine 09/03/2025 12:1 5 PM EDT HOLD LAVENDER - POSSIBLE HEMATOLOGY Routine 09/03/2025 11:54 AM EDT ETHANOL Routine 09/03/2025 11:54 AM EDT C-REACTIVE PROTEIN Routine 09/03/2025 11 :54 AM EDT HIGH SENSITIVITY TROPONIN I Routine 09/03/2025 11:54 AM EDT LACTIC ACID Routine 09/03/2025 11:54 AM EDT NT-PROBNP Routine 09/03/2025 11:54 AM EDT LIPASE Routine 09/03/2025 11:54 AM EDT MAGNESIUM Routine 09/03/2025 11:54 AM EDT COMPREHENSIVE METABOLIC PANEL Routine 09/03/2025 11:54 AM EDT CBC WITH AUTO DIFFERENTIAL Routine 09/03/2025 11:54 AM EDT HOLD LT BLUE - POSSIBLE COAG Routine 09/03/2025 11:54 AM EDT URINALYSIS WITH REFLEX MICROSCOPIC Routine 08/21/2025 11:09 [...] QL NAAT Routine 06/08/2025 5:01 PM EDT from Last 3 Months Results * CTA Chest PE Protocal (09/06/2025 12:04 PM EDT) Anatomical Region Laterality Modality Body, Chest Computed Tomogra phy 09/06/2025 12:0 4 PM EDT Narrative 09/06/2025 12:06 PM EDT [place] [address] CT Scan Report Signed Patient: Charbel Delgado MR#: [id number] : 1970 Acct:[id number] Age/Sex: 55 / M ADM Date: 09/06/25 Loc: .ED Attending Dr: Ordering Physician: Abril Sam Date of Service: 09/06/25 Procedure(s): CT angio chest PE protocol Accession Number(s): [id number] cc: Abril Sam; [facility] Report Number: [id number]: Total DLP = 188.00 mGy-cm Reason for [...] signed by Christian Beard MD in OV> 09/06/251204 DD/ 03 TD/TT: 09/06/25 120 Tour Counselor: Procedure Note Donotuseinterpreter, Image - 09/06/[address] [place] [address] [address] Scan Report Signed Patient: Isaias Delgado#: [id number] : 1970Acct:[id number] Age/Sex: 55 / MADM Date: 09/06/25 Loc: .ED Attending Dr: Ordering Physician: Abril Sam Date of Service: 09/06/25 Procedure(s): CT angio chest PE protocol Accession Number(s): [id number] cc: Abril Sam; [facility] Report Number: [id number]: Total DLP = 188.00 mGy-cm Reason for [...] 09/06/25 1205 DD/ 120 TD/TT: 09/06/25 120 Tour Counselor: [facility] External Provider IMG CT PROCEDURES Edited Result - Final * (ABNORMAL) Sed Rate by Modified Mela (09/06/2025 8:50 AM EDT) Erythrocyte Sedimentation Rate 46(H) 0 - 15 MM/HR [facility] Comment:Patients with polycy themia and many hemoglobin abnormalitiesmay have depressed sed rates whereas patients with anemiamay have elevated sed rates. 09/06/2025 8:50 AM EDT 09/06/2025 8:54 AM EDT Generic External Data Provider LAB BLOOD ORDERAB LES Final Result Performing Organization Address [facility] Co de Phone Number [facility] [address] [place] [phone] * (ABNORMAL) C-reactive Protein (09/06/2025 8:50 AM EDT) Only the most recent of2 resultswithin the time period is included. C Reactive Protein 0.57(H) < or = 0.50 mg/dL [facility] 09/06/2025 8:50 AM EDT 09/06/2025 8:54 AM EDT Generic External Data Provider LAB BLOOD ORDERAB LES Final Result Performing Organization Address [facility]/ZIP Co de Phone Number [facility] [address] [place] [phone] * (ABNORMAL) VENOUS BLOOD GAS (09/06/2025 8:48 AM EDT) VBG pH 7.43 7.32 - 7.43 [facility] Comment:METER #: [id number] additional_comment: Junior orta VBG PCO2 29 mmHg [facility] Comment:METER #: [id number] additional_comment: Cb gentcrysj VBG PO2 71 mmHg [facility] Comment:METER #: [id number] additional_comment: Cb you VBG Base Excess -3.3 mmol/L [facility] Comment:METER #: [id number] additional_comment: Junior orta VBG HCO3 20(L) 22 - 26 mmol/L [facility] Comment:METER #: [id number] additional_comment: Junior orta O2 Sat, Demetrio 92.0 % [facility] Comment:METER #: [id number] additional_comment: Junior orta 09/06/2025 8:48 AM EDT 09/06/2025 8:51 AM EDT us Generic External Data Provider LAB BLOOD ORDERAB LES Final Result [facility] [address] [place] [phone] * Influenza A B2 ID NOW ([employer]) (09/06/2025 8:42 AM EDT) IDNOW SERIAL# [id number] [facility] Influenza A Negative Negative [facility] Influenza B2 Negative Negative [facility] Influenza A B2 Note See Note [facility] Comment:The Yarbrough ID NOW In fluenza [...] LAB MICROBIOLOGY - GENERAL ORDERABLES Final Result [facility] [address] [place] [phone] * COVID-19 ID NOW ([employer]) (09/06/2025 8:42 AM EDT) IDNOW SERIAL# [id number] [facility] COVID-19 TEST Negative Negative [facility] COVID-19 NOTE See Note [facility] Comment: Results are for the identification of SARS-CoV2 RNA. TheSARS-CoV2 RNA is generally detectable in respiratory samplesduring the acute phase of infection. Positive results areindicative of the presence of SARS-CoV-2 RNA; clinicalcorrelation with patient history and other diagnosticinformation is necessary to determine patient infectionstatus. Positive results do not rule out bacterial infectionor co- infection with other viruses.Testing facilities within the [facility] and [facility] are required to report all positive results [...] LAB MOLECULAR YAO GNOSTICS ORDERABLES Final Result Performing Organization Address City/[facility]/ZIP Co de Phone Number [facility] [address] [place] [phone] * Urinalysis, Complete, with Reflex to Culture (09/06/2025 8:41 AM EDT) Color Urine Yellow [facility] Appearance Urine Clear [facility] PH 6.5 5.0 - 9.0 [facility] Glucose Urine UA Negative Negative mg/dL [facility] Urine Blood Negative Negative [facility] Specific [place] - Urine 1.010 1.005 - 1.025 [facility] Urine Protein Negative Neg-Trace mg/dL [facility] Urine Ketones Negative Negative mg/dL [facility] Nitrite Urine Negative Negative [facility] Leukocyte Esterase Urine Negative Negative [facility] RBC Urine 0-2 0 - 2 /HPF [facility] Urine WBC 0-5 0 - 5 /HPF [facility] Urine Squamous Epithelial Cell 0-2 0 - 2 /HPF [facility] Urine Bacteria None Seen None Seen [facility] Hyaline Casts, Urine 0-2 0 - 2 /LPF [facility] 09/06/2025 8:41 AM EDT 09/06/2025 8:46 AM EDT Narrative [facility] - 09/06/2025 8:58 AM EDT [id number], Clean Catch us Generic External Data Provider LAB URINE ORDERAB LES Final Result Performing Organization Address City/[facility]/ZIP Co de Phone Number [facility] [address] [place] [phone] * (ABNORMAL) Lactic Acid (09/06/2025 5:29 AM EDT) Only the most recent of4 resultswithin the time period is included. Lactic Acid 2.4(HH) 0.5 - 2.0 mmol/L [facility] Comment:Critical value for t est(s):LACTIC ACID Results called toand read back by: ELIU Person calling:AMINATA Date:09/06/25 Time:0558 09/06/2025 5:29 AM EDT 09/06/2025 5:33 AM EDT us Generic External Data Provider LAB BLOOD ORDERAB LES Final Result [facility] [address] [place] [phone] * XR Chest 1 View (09/06/2025 12:54 AM EDT) Only the most recent of7 resultswithin the time period is included. Anatomical Region Laterality Modality Chest Radiographic Lamar ging 09/06/2025 12:5 4 AM EDT Narrative 09/06/2025 12:57 AM EDT [address] [address] XRay Report Signed Patient: Charbel Delgado MR#: [id number] : 1970 Acct:[id number] Age/Sex: 55 / M ADM Date: 09/06/25 Loc: .ED Attending Dr: Ordering Physician: David Galvez PA-C Date of Service: 09/06/25 Procedure(s): XR chest 1V Accession Number(s): [id number] cc: [facility]; David Galvez PA-C Reason for Exam: [...] MD in OV> 09/06/2555 DD/ TD/TT: 09/06/2553 Tour Counselor: Procedure Note Moy, Image - 09/06/2025 [place] [address] XRay Report Signed Patient: Isaias Delagdo#: [id number] : 1970Acct:[id number] Age/Sex: 55 / MADM Date: 09/06/25 Loc: HO.ED Attending Dr: Ordering Physician: David Galvez PA-C Date of Service: 09/06/25 Procedure(s): XR chest 1V Accession Number(s): [id number] cc: [facility]; David Galvez PA-C Reason for Exam: [...] MD in OV> 09/06/2555 DD/ TD/TT: 09/06/2553 Tour Counselor: us [facility] External Provider IMG XR PROCEDURES Final Result * Slide Review (09/06/2025 12:46 AM EDT) Only the most recent of4 resultswithin the time period is included. Slide Review VERIFIED [facility] 09/06/2025 12:4 6 AM EDT 09/06/2025 12:51 AM EDT Generic External Data Provider LAB BLOOD ORDERAB LES Final Result Performing Organization Address [facility] de Phone Number [facility] [address] [place] [phone] * HOLD LT BLUE - POSSIBLE COAG (09/06/2025 12:46 AM EDT) Only the most recent of2 resultswithin the time period is included. Hold Lt Blue - Possible Coag SEE NOTE [facility] Comment:Specimen will be hel d untested for 4 hours. Call Hematologyif testing is desired. 09/06/2025 12:4 6 AM EDT 09/06/2025 12:54 AM EDT Generic External Data Provider LAB BLOOD ORDERAB LES Final Result Performing Organization Address [facility] de Phone Number [facility] [address] [place] [phone] * Ethanol (09/06/2025 12:46 AM EDT) Only the most recent of7 resultswithin the time period is included. Pathologist [facility] ETHANOL (MG/DL) IN SER/PLAS 153 mg/dL [facility] Comment:Serum/plasma ethanol results are to be used formedical/treatment purposes only. 09/06/2025 12:4 6 AM EDT 09/06/2025 12:51 AM EDT us Generic External Data Provider LAB BLOOD ORDERAB LES Final Result Performing Organization Address [facility] de Phone Number [facility] [address] [place] [phone] * NT-proBNP (09/06/2025 12:46 AM EDT) Only the most recent of3 resultswithin the time period is included. NT-proBNP 62.2 <300 pg/mL [facility] Comment:Reference Range:Age Group (years) NT-proBNP (pg/ml) InterpretationAll <300 Negative: HF unlikelyFor patients presenting to the ED with clinical suspicion ofnew onset or worsening HF, see below:18 to <50 >299.9 to <450.0 Grayzone: Gnlaturb01 to 75 >299.9 to <900.0 other causes of>75 >299.9 to <1800.0 NT-proBNP [id number] to <50 >449.9 Positive: HF -23 >899.9>75 >1799.9Note: Elevated NT-proBNP levels should be interpreted inthe context of other clinical information. 09/06/2025 12:4 6 AM EDT 09/06/2025 12:51 AM EDT us Generic External Data Provider LAB BLOOD ORDERAB LES Final Result [facility] [address] [place] [phone] * (ABNORMAL) CBC auto differential (09/06/2025 12:46 AM EDT) Only the most recent of7 resultswithin the time period is included. White Blood Count 3.9(L) 4.8 - 10.8 X10*3/uL [facility] Red Blood Count 3.33(L) 4.60 - 5.80 X10*6/uL [facility] Hemoglobin 10.1(L) 14.0 - 18.0 g/dl [facility] Hematocrit 31.6(L) 42.0 - 52.0 % [facility] Mean Corpuscular Volume 94.9 80.0 - 98.0 fL [facility] Mean Corpuscular Hemoglobin 30.3 27.0 - 33.0 pg [facility] Mean Corpuscular HGB Conc 32.0 31.0 - 36.0 g/dl [facility] Red Cell Distribution Width 16.9(H) 11.0 - 16.0 % [facility] Platelet Count 50(L) 160 - 400 X10*3/uL [facility] Neutrophils Percent Auto 65.9 45 - 73 % [facility] Imm Gran Pct Auto 1.3(H) 0.0 - 0.4 % [facility] Lymphocytes Percent Auto 18.7(L) 20 - 40 % [facility] Monocytes Percent Auto 10.5 2 - 11 % [facility] Eosinophils Percent Auto 2.6 0 - 4 % [facility] Basophils Percent Auto 1.0 0 - 2 % [facility] NRBC Pct Auto 0.0 0.0 - 0.2 /100WBC [facility] Neutrophils Absolute Auto 2.6 2.0 - 8.3 x10*3/uL [facility] Imm Gran Abs Auto 0.05(H) 0.00 - 0.03 X10*3/uL [facility] Lymphocytes Absolute Auto 0.7(L) 1.2 - 4.9 X10*3/uL [facility] Monocytes Absolute Auto 0.4 0.1 - 1.2 X10*3/uL [facility] Eosinophils Absolute Auto 0.1 0.0 - 0.4 X10*3/uL [facility] Basophils Absolute Auto 0.0 0.0 - 0.2 X10*3/uL [facility] NRBC Abs Auto 0.000 0.0 - 0.012 X10*3/uL [facility] 09/06/2025 12:4 6 AM EDT 09/06/2025 12:51 AM EDT us Generic External Data Provider LAB BLOOD ORDERAB LES Edited Result - Final [facility] [address] [place], [place] [phone] * (ABNORMAL) Lactic Acid (09/06/2025 12:46 AM EDT) Only the most recent of3 resultswithin the time period is included. Lactic Acid 2.2(HH) 0.5 - 2.0 mmol/L [facility] Comment:Critical value for t est(s): LACTIC ACID Results called toand read back by: NEFTALI Person calling:ALEate:09/06/25 Time:0113 09/06/2025 12:4 6 AM EDT 09/06/2025 12:51 AM EDT us Generic External Data Provider LAB BLOOD ORDERAB LES Final Result [facility] [address] [place] [phone] * (ABNORMAL) Comprehensive Metabolic Panel (09/06/2025 12:46 AM EDT) Only the most recent of6 resultswithin the time period is included. Sodium 139 135 - 145 mmol/L [facility] Potassium 3.8 3.3 - 5.1 mmol/L [facility] Chloride 109(H) 96 - 108 mmol/L [facility] Carbon Dioxide 19(L) 22 - 29 mmol/L [facility] Anion Gap 15 12 - 20 [facility] Urea Nitrogen (BUN) 17(H) 9 - 16 mg/dL [facility] Creatinine, Serum 1.03 0.5 - 1.4 mg/dL [facility] Creatinine Clr Calc Pharmacy 66.8 [facility] Comment:eGFR (calculated fro m the MDRD study equation) and eCrCl(calculated from the Cockcroft-Gault equation) are based ondifferent parameters and may not yield comparable results.If eCrCl result is absurd, please check patient'sheight/weight. Estimated Glomerular Filt Rate >60 [facility] Comment:Chronic Kidney Disea se: Estimated GFR < 60 mL/min/1.83x4Degfmi Kidney Disease: Estimated GFR < 15 mL/min/1.73m2 Glucose 92 60 - 115 mg/dL [facility] Calcium 8.5 8.4 - 10.2 mg/dL [facility] Bilirubin, Total 0.4 0.0 - 1.0 mg/dL [facility] Aspartate Amino Transferase 36 5 - 37 U/L [facility] Alanine Aminotransferase 9 0 - 40 U/L [facility] Total Protein 7.9 6.5 - 8.0 g/dL [facility] Albumin Level 3.4(L) 3.5 - 5.0 g/dL [facility] Alkaline Phosphatase 113 39 - 117 U/L [facility] 09/06/2025 12:4 6 AM EDT 09/06/2025 12:51 AM EDT Generic External Data Provider LAB BLOOD ORDERAB LES Final Result Performing Organization Address [facility] Co de Phone Number [facility] [address] [place] [phone] * High Sensitivity Troponin I (09/03/2025 2:15 PM EDT) Only the most recent of5 resultswithin the time period is included. TROPONIN I HIGH SENSITIVITY <2.7 <3.5 - 35.0 ng/L [facility] Comment:The Yarbrough high sens itivity Troponin-I results should beused in conjunction with other diagnostic information suchas ECG, clinical observations and information, and patientsymptoms to aid in the diagnosis of NM. 09/03/2025 2:15 PM EDT 09/03/2025 2:18 PM EDT Generic External Data Provider LAB BLOOD ORDERAB LES Final Result Performing Organization Address [facility] Co de Phone Number [facility] [address] [place] [phone] * XR Chest 2 Views (09/03/2025 12:15 PM EDT) Only the most recent of2 resultswithin the time period is included. Anatomical Region Laterality Modality Chest Radiographic Lamar ging 09/03/2025 12:1 5 PM EDT Narrative 09/03/2025 12:34 PM EDT [address] [address] XRay Report Signed Patient: Charbel Delgado MR#: [id number] : 1970 Acct:[id number] Age/Sex: 55 / M ADM Date: 09/03/25 Loc: HO.ED Attending Dr: Ordering Physician: Johanna Liao Date of Service: 09/03/25 Procedure(s): XR chest 2V Accession Number(s): [id number] cc: [facility]; Johanna Liao Reason for Exam: hypoxic EXAMINATION: XR CHEST CLINICAL INFORMATION: Hypoxia and back pain. COMPARISON: 08/30/2025 TECHNIQUE: 2 views of the chest were obtained. FINDINGS: Mild cardiac enlargement suspected. Vascular congestion in the hilar regions. Mediastinal contours appear normal. Lungs demonstrate hazy interstitial markings bilaterally with subtle Gregory B lines in the lung bases suggestive of interstitial pulmonary edema/CHF. There is no focal consolidation. There is no pneumothorax or pleural effusion. There is no focal osseous or soft tissue abnormality. There is a midthoracic severe compression deformity. XR/XR chest 2V IMPRESSION: 1. Moderate interstitial pulmonary edema. No focal pneumonia. No effusions. Electronically signed by: David Wang MD 09/03/2025 12:31 PM EDT RP Dictated By: David Wang MD Signed By: <Electronically signed by David Wang MD in OV> 09/03/25 1231 DD/ 1215 TD/TT: 09/03/25 1225 Tour Counselor: Procedure Note Donotuseinterpreter, Image - 09/03/[address] [address] XRay Report Signed Patient: Rod DelgadoR#: [id number] : 1970Acct:[id number] Age/Sex: 55 / MADM Date: 09/03/25 Loc: .ED Attending Dr: Ordering Physician: Johanna Liao Date of Service: 09/03/25 Procedure(s): XR chest 2V Accession Number(s): [id number] cc: [facility]; Johanna Liao Reason for Exam: hypoxic EXAMINATION: XR CHEST CLINICAL INFORMATION: Hypoxia and back pain. COMPARISON: 08/30/2025 TECHNIQUE: 2 views of the chest were obtained. FINDINGS: Mild cardiac enlargement suspected. Vascular congestion in the hilar regions. Mediastinal contours appear normal. Lungs demonstrate hazy interstitial markings bilaterally with subtle Gregory B lines in the lung bases suggestive of interstitial pulmonary edema/CHF. There is no focal consolidation. There is no pneumothorax or pleural effusion. There is no focal osseous or soft tissue abnormality. There is a midthoracic severe compression deformity. XR/XR chest 2V IMPRESSION: 1. Moderate interstitial pulmonary edema. No focal pneumonia. No effusions. Electronically signed by: David Wang MD 09/03/2025 12:31 PM EDT Dictated By: David Wang MD Signed By: <Electronically signed by David Wang MD in OV> 09/03/25 1231 DD/ 1215 TD/TT: 09/03/25 1225 Tour Counselor: [facility] External Provider IMG XR PROCEDURES Final Result * Hold Lavender - Possible Hematology (09/03/2025 11:54 AM EDT) Hold Lavender - Possible Hematololgy SEE NOTE [facility] Comment:Specimen will be hel d untested for 8 hours. Call Hematologyif testing is desired. 09/03/2025 11:5 4 AM EDT 09/03/2025 12:02 PM EDT Generic External Data Provider HISTORICAL/NON OR DERABLE LABS Final Result [facility] [address] [place] [phone] * Magnesium (09/03/2025 11:54 AM EDT) Only the most recent of4 resultswithin the time period is included. Magnesium 1.7 1.6 - 2.6 mg/dL [facility] 09/03/2025 11:5 4 AM EDT 09/03/2025 12:03 PM EDT us Generic External Data Provider LAB BLOOD ORDERAB LES Final Result Performing Organization Address [facility]/ZIP Co de Phone Number [facility] [address] [place] [phone] * Lipase (09/03/2025 11:54 AM EDT) Only the most recent of2 resultswithin the time period is included. Lipase 25 8 - 78 U/L [facility] 09/03/2025 11:5 4 AM EDT 09/03/2025 12:03 PM EDT us Generic External Data Provider LAB BLOOD ORDERAB LES Final Result Performing Organization Address [facility] de Phone Number [facility] [address] [place] [phone] * Urinalysis w/reflex microscopic (08/21/2025 11:09 PM EDT) Color Urine Dark Yellow [facility] Appearance Urine Clear [facility] PH 5.0 5.0 - 9.0 [facility] Glucose Urine UA Negative Negative mg/dL [facility] Urine Blood Negative Negative [facility] Specific [place] - Urine 1.015 1.005 - 1.025 [facility] Urine Protein Negative Neg-Trace mg/dL [facility] Urine Ketones Negative Negative mg/dL [facility] Nitrite Urine Negative Negative [facility] Leukocyte Esterase Urine Negative Negative [facility] 08/21/2025 11:0 9 PM EDT 08/21/2025 11:13 PM EDT Narrative [facility] - 08/21/2025 11:16 PM EDT [id number], Clean Catch us Generic External Data Provider LAB URINE ORDERAB LES Final Result Performing Organization Address [facility] Co de Phone Number [facility] [address] [place] [phone] [phone] * (ABNORMAL) Lipid Panel, Standard (08/21/2025 8:16 PM EDT) Triglycerides 62 <150 mg/dL [facility] Comment:Desirable Triglyceri de: less than 150 mg/dLBorderline High Triglyceride 150-199 mg/dLHigh Triglyceride: 200-499 mg/dLVery High Triglyceride: greater than or equal to 5OO mg/dL Cholesterol 118 <200 mg/dL [facility] Comment:Desirable Cholestero l: less than 200 mg/dLBorderline High Cholesterol: 200-239 mg/dLHigh Cholesterol: greater than 239 mg/dL LDL Cholesterol Calculated 77 <100 mg/dL [facility] Comment:Desirable LDL: less than 100 mg/dLNear Optimal/Above Optimal LDL: 110- 129 mg/dLBorderline High LDL: 130-159 mg/dLHigh LDL: 160-189 mg/dLVery High LDL: greater than or equal to 190 mg/dL HDL Cholesterol 29(L) >40 mg/dL [facility] Comment:Desirable HDL: great er than 40 mg/dL Note: This HDL assay may give artificially low results in patients with liver disease. 08/21/2025 8:16 PM EDT 08/21/2025 8:22 PM EDT Generic External Data Provider LAB BLOOD ORDERAB LES Final Result Performing Organization Address [facility] Co de Phone Number [facility] [address] [place] [phone] * XR Foot 3+ Views Right (08/15/2025 8:10 AM EDT) Anatomical Region Laterality Modality Lower Extremities, Foot Right Radiogra phic Imaging 08/15/2025 8:10 AM EDT Narrative 08/15/2025 8:34 AM EDT [address] [address] XRay Report Signed Patient: Charbel Delgado MR#: [id number] : 1970 Acct:[id number] Age/Sex: 55 / M ADM Date: 08/15/25 Loc: [facility] Attending Dr: Yazmin WALLACE Ordering Physician: Yazmin Shafer Date of Service: 08/15/25 Procedure(s): XR foot RT min 3V Accession Number(s): [id number] cc: Yazmin Shafer; [facility] Reason for Exam: right foot pain [...] Dony Nunn MD 08/15/2025 08:31 AM EDT Dictated By: Dony Nunn MD Signed By: <Electronically signed by Dony Nunn MD in OV> 08/15/25830 DD/ 08 TD/TT: 08/15/25 0820 Tour Counselor: Procedure Note Donotuseinterpreter, Image - 08/15/[address] [address] XRay Report Signed Patient: Rod DelgadoR#: [id number] : 1970Acct:[id number] Age/Sex: 55 / MADM Date: 08/15/25 Loc: [facility]: Yazmin WALLACE Ordering Physician: Yazmin Shafer Date of Service: 08/15/25 Procedure(s): XR foot RT min 3V Accession Number(s): [id number] cc: Yazmin Shafer; [facility] Reason for Exam: right foot pain [...] signed by Dony Nunn MD in OV> 08/15/25 0831 DD/ 0810 TD/TT: 08/15/25 0820 Tour Counselor: [facility] External Provider IM XR PROCEDURES Final Result * (ABNORMAL) Drug Monitoring, Panel 1, Screen, Urine (07/06/2025 6:08 PM EDT) Opiate Screen Urine Not Detected Not Detect [facility] Comment:Opiate cut-off is 30 0 ng/mL.Positive results are unconfirmed and should not be used fornon-medical purposes. Barbiturates, Urine POSITIVE(A) Not Detect [facility] Comment:Barbiturate cut-off is 200 ng/mL.Positive results are unconfirmed and should not be used fornon-medical purposes. Phencyclidine Screen Urine Not Detected Not Detect [facility] Comment:Phencyclidine cut-of f is 25 ng/mL.Positive results are unconfirmed and should not be used fornon-medical purposes. Amphetamine Screen Urine Not Detected Not Detect [facility] Comment:Amphetamine cut-off is 1000 ng/mL.Positive results are unconfirmed and should not be used fornon-medical purposes. Benzodiazepines Screen Urine Not Detected Not Detect [facility] Comment:Benzodiazepine cut-o ff is 200 ng/mL.Positive results are unconfirmed and should not be used fornon-medical purposes. Cocaine Screen Urine Not Detected Not Detect [facility] Comment:Cocaine cut-off is 3 00 ng/mL.Positive results are unconfirmed and should not be used fornon-medical purposes. Cannabinoid Screen Urine Not Detected Not Detect [facility] Comment:Cannabinoid cut-off is 50 ng/mL.Positive results are unconfirmed and should not be used fornon-medical purposes. Methadone Screen, Urine Not Detected Not Detect ng/mL [facility] Comment:Methadone cut-off is 300 ng/mL.Positive results are unconfirmed and should not be used fornon-medical purposes. FENTANYL URINE Not Detected Not Detect [facility] Comment:Fentanyl cut-off is 1 ng/mL.Positive results are unconfirmed and should not be used fornon-medical purposes. Oxycodone Urine Screen Not Detected Not Detect ng/mL [facility] Comment:Oxycodone cut-off is 100 ng/mL.Positive results are unconfirmed and should not be used fornon-medical purposes. Buprenorphine Screen Not Detected Not Detect ng/mL [facility] Comment:Buprenorphine cut-of f is 5 ng/mL.Positive results are unconfirmed and should not be used fornon-medical purposes. 07/06/2025 6:08 PM EDT 07/06/2025 6:11 PM EDT us Generic External Data Provider LAB URINE ORDERAB LES Final Result [facility] [address] [place] [phone] * B Type Natriuretic Peptide (BNP) (07/06/2025 5:58 PM EDT) Only the most recent of3 resultswithin the time period is included. B Type Natriuretic Peptide 100 <100 pg/mL [facility] 07/06/2025 5:58 PM EDT 07/06/2025 6:06 PM EDT us Generic External Data Provider LAB BLOOD ORDERAB LES Final Result Performing Organization Address City/State/[facility] Co de Phone Number [facility] [address] [place] [phone] * CT Chest w/ Contrast (06/19/2025 4:46 AM EDT) Anatomical Region Laterality Modality Body, Chest Computed Tomogra phy 06/19/2025 4:46 AM EDT Narrative 06/19/2025 4:48 AM EDT [address] [address] [address] Scan Report Signed Patient: Charbel Delgado MR#: [id number] : 1970 Acct:[id number] Age/Sex: 55 / M ADM Date: 06/19/25 Loc: [facility]: Mercedes Hogan MD Ordering Physician: David Galvez PA-C Date of Service: 06/19/25 Procedure(s): CT chest w IV con Accession Number(s): [id number] cc: [facility]; David Galvez PA-C Report Number: [id number]: Total DLP = 265.00 mGy-cm CLINICAL HISTORY: [...] in OV> 06/19/25446 DD/ 5 TD/TT: 06/19/25445 Tour Counselor: Procedure Note Donotuseinterpreter, Image - 06/19/[address] [place] [address] [address] Scan Report Signed Patient: Isaias Delgado#: [id number] : 1970Acct:[id number] Age/Sex: 55 / MADM Date: 06/19/25 Loc: [facility]: Mercedes Hogan MD Ordering Physician: David Galvez PA-C Date of Service: 06/19/25 Procedure(s): CT chest w IV con Accession Number(s): [id number] cc: [facility]; David Galvez PA-C Report Number: [id number]: Total DLP = 265.00 mGy-cm CLINICAL HISTORY: [...] signed by Oskar Tariq MD in OV> 06/19/257 DD/ 5 TD/TT: 06/19/25445 Tour Counselor: [facility] External Provider IMG CT PROCEDURES Edited Result - Final * SARS-CoV-2 RNA, Influenza A/B, and RSV RNA, Ql NAAT (06/08/2025 5:01 PM EDT) Influenza A PCR NEGATIVE Negative [facility] Influenza B PCR NEGATIVE Negative [facility] Resp Syncy Virus RNA Qual PCR NEGATIVE Negative [facility] SARS COV2 PCR NEGATIVE Negative [facility] Comment:All test results mus t be [...] and positive influenza A/B results arereported to [facility]. 06/08/2025 5:01 PM EDT 06/08/2025 5:07 PM EDT Generic External Data Provider LAB MICROBIOLOGY - GENERAL ORDERABLES Final Result Performing Organization Address [facility] de Phone Number [facility] [address] [place] [phone] * (ABNORMAL) Hepatic Function Panel (06/08/2025 5:01 PM EDT) Pathologist [facility] Bilirubin, Total 0.7 0.0 - 1.0 mg/dL [facility] Bilirubin, Direct 0.4 0.0 - 0.5 mg/dL [facility] Aspartate Amino Transferase 66(H) 5 - 37 U/L [facility] Alanine Aminotransferase 15 0 - 40 U/L [facility] Total Protein 7.8 6.5 - 8.0 g/dL [facility] Albumin Level 3.5 3.5 - 5.0 g/dL [facility] Alkaline Phosphatase 133(H) 39 - 117 U/L [facility] 06/08/2025 5:01 PM EDT 06/08/2025 5:05 PM EDT Generic External Data Provider LAB BLOOD ORDERAB LES Final Result Performing Organization Address [facility] de Phone Number [facility] [address] [place] [phone] * (ABNORMAL) Basic Metabolic Panel (06/08/2025 5:01 PM EDT) Pathologist [facility] Sodium 144 135 - 145 mmol/L [facility] Potassium 3.4 3.3 - 5.1 mmol/L [facility] Chloride 114(H) 96 - 108 mmol/L [facility] Carbon Dioxide 20(L) 22 - 29 mmol/L [facility] Anion Gap 13 12 - 20 [facility] Urea Nitrogen (BUN) 9 9 - 16 mg/dL [facility] Creatinine, Serum 0.66 0.5 - 1.4 mg/dL [facility] Creatinine Clr Calc Pharmacy 100.2 [facility] Comment:eGFR (calculated fro m the MDRD study equation) and eCrCl(calculated from the Cockcroft-Gault equation) are based ondifferent parameters and may not yield comparable results.If eCrCl result is absurd, please check patient'sheight/weight. Estimated Glomerular Filt Rate >60 [facility] Comment:Chronic Kidney Disea se: Estimated GFR < 60 mL/min/1.75d1Ijmawn Kidney Disease: Estimated GFR < 15 mL/min/1.73m2 Glucose 92 60 - 115 mg/dL [facility] Calcium 8.2(L) 8.4 - 10.2 mg/dL [facility] 06/08/2025 5:01 PM EDT 06/08/2025 5:05 PM EDT us Generic External Data Provider LAB BLOOD ORDERAB LES Final Result [facility] [address] [place] [phone] from Last 3 Months Insurance [employer] [facility] [address] [facility] [id number] [place] [id number]
--- OUTSIDE RECORDS SUMMARY | 2025-09-08 22:19 | XMS_ITS | Encounter Summary ---
Author Organization [employer] Address [address] [place] [address] [place] [address] Care Team Providers Care Fireworks Display Specialist Name Role Phone Unavailable Primary Care Provider Unavailabl e Encounter Details Date Type Department Care Team (Late st Contact Info) Description 09/03/2025 Results Follow-Up [facility] [address] [place] [address] Provider, Generic External Data XR Chest 2 [...]
--- OUTSIDE RECORDS SUMMARY | 2025-09-08 22:19 | XMS_ITS | Encounter Summary ---
Author Organization [employer] Address [address] [place] [address] [place] [address] Care Team Providers Care Treasury Director Name Role Phone Unavailable Primary Care Provider Unavailabl e Encounter Details Date Type Department Care Team (Late st Contact Info) Description 09/03/2025 Orders Only GENERIC EXTERNAL DATA DEPARTMENT [...] Procedure Name Priority Date/Time Associated Diagnosis Comments LACTIC ACID LAB USE ONLY Routine 09/03/2025 2:15 PM EDT HIGH SENSITIVITY TROPONIN I Routine 09/03/2025 2:15 PM EDT XR CHEST 2 VIEWS Routine 09/03/2025 12:1 5 PM EDT HOLD LAVENDER - POSSIBLE HEMATOLOGY Routine 09/03/2025 11:54 AM EDT HIGH SENSITIVITY TROPONIN I Routine 09/03/2025 11:54 AM EDT HOLD LT BLUE - POSSIBLE COAG Routine 09/03/2025 11:54 AM EDT ETHANOL Routine 09/03/2025 11:54 AM EDT NT-PROBNP Routine 09/03/2025 11:54 AM EDT CBC WITH AUTO DIFFERENTIAL Routine 09/03/2025 11:54 AM EDT C-REACTIVE PROTEIN Routine 09/03/2025 11 :54 AM EDT MAGNESIUM Routine 09/03/2025 11:54 AM EDT LIPASE Routine 09/03/2025 11:54 AM EDT LACTIC ACID Routine 09/03/2025 11:54 AM EDT COMPREHENSIVE METABOLIC PANEL Routine 09/03/2025 11:54 AM EDT documented in this encounter Results * High Sensitivity Troponin I (09/03/2025 2:15 PM EDT) [facility] TROPONIN I HIGH SENSITIVITY <2.7 <3.5 - 35.0 ng/L [facility] Comment:The Connolly high sens itivity Troponin-I results should beused in conjunction with other diagnostic information suchas ECG, clinical observations and information, and patientsymptoms to aid in the diagnosis of ME. 09/03/2025 2:15 PM EDT 09/03/2025 2:18 PM EDT us Generic External Data Provider LAB BLOOD ORDERAB LES Final Result Performing Organization Address [facility] Co de Phone Number [facility] [address] [place] [phone] * Lactic Acid (09/03/2025 2:15 PM EDT) [facility] Lactic Acid 1.8 0.5 - 2.0 mmol/L [facility] 09/03/2025 2:15 PM EDT 09/03/2025 2:18 PM EDT us Generic External Data Provider LAB BLOOD ORDERAB LES Final Result Performing Organization Address [facility]/ZIP Co de Phone Number [facility] [address] [place] [phone] * XR Chest 2 Views (09/03/2025 12:15 PM EDT) Anatomical Region Laterality Modality Chest Radiographic Lamar ging 09/03/2025 12:1 5 PM EDT Narrative 09/03/2025 12:34 PM EDT [address] [address] XRay Report Signed Patient: Charbel Delgado MR#: [id number] : 1970 Acct:[id number] Age/Sex: 55 / M ADM Date: 09/03/25 Loc: HO.ED Attending Dr: Ordering Physician: Johanna Liao Date of Service: 09/03/25 Procedure(s): XR chest 2V Accession Number(s): [id number] cc: [facility]; Johanna Liao Reason for Exam: hypoxic [...] 09/03/25 1231 DD/ 1215 TD/TT: 09/03/25 1225 Submarine Operator: Procedure Note Donotuseinterpreter, Image - 09/03/[address] [address] XRay Report Signed Patient: Rod DelgadoR#: [id number] : 1970Acct:[id number] Age/Sex: 55 / MADM Date: 09/03/25 Loc: HO.ED Attending Dr: Ordering Physician: Johanna Liao Date of Service: 09/03/25 Procedure(s): XR chest 2V Accession Number(s): [id number] cc: [facility]; Johanna Liao Reason for Exam: hypoxic [...] 09/03/25 1231 DD/ 1215 TD/TT: 09/03/25 1225 Submarine Operator: [facility] External Provider IMG XR PROCEDURES Final Result * Ethanol (09/03/2025 11:54 AM EDT) ETHANOL (MG/DL) IN SER/PLAS 67 mg/dL [facility] Comment:Serum/plasma ethanol results are to be used formedical/treatment purposes only. 09/03/2025 11:5 4 AM EDT 09/03/2025 12:03 PM EDT Generic External Data Provider LAB BLOOD ORDERAB LES Final Result [facility] [address] [place] [phone] * (ABNORMAL) C-reactive Protein (09/03/2025 11:54 AM EDT) C Reactive Protein 0.74(H) < or = 0.50 mg/dL [facility] 09/03/2025 11:5 4 AM EDT 09/03/2025 12:03 PM EDT Generic External Data Provider LAB BLOOD ORDERAB LES Final Result Performing Organization Address [facility] Co de Phone Number [facility] [address] [place] [phone] * High Sensitivity Troponin I (09/03/2025 11:54 AM EDT) Pathologist [facility] TROPONIN I HIGH SENSITIVITY <2.7 <3.5 - 35.0 ng/L [facility] Comment:The Connolly high sens itivity Troponin-I results should beused in conjunction with other diagnostic information suchas ECG, clinical observations and information, and patientsymptoms to aid in the diagnosis of ME. 09/03/2025 11:5 4 AM EDT 09/03/2025 12:03 PM EDT Generic External Data Provider LAB BLOOD ORDERAB LES Final Result Performing Organization Address [facility] Co de Phone Number [facility] [address] [place] [phone] * (ABNORMAL) Lactic Acid (09/03/2025 11:54 AM EDT) Lactic Acid 2.6(HH) 0.5 - 2.0 mmol/L [facility] Comment:Critical value for L ACTA: Results called to and read janiya: MARTY Person calling: GEOGREEI Date: 09/03/25Time: 1230 09/03/2025 11:5 4 AM EDT 09/03/2025 12:00 PM EDT us Generic External Data Provider LAB BLOOD ORDERAB LES Final Result Performing Organization Address City/[facility]/ZIP Co de Phone Number [facility] [address] [place] [phone] * NT-proBNP (09/03/2025 11:54 AM EDT) NT-proBNP 166.0 <300 pg/mL [facility] Comment:Reference Range:Age Group (years) NT-proBNP (pg/ml) InterpretationAll <300 Negative: HF unlikelyFor patients presenting to the ED with clinical suspicion ofnew onset or worsening HF, see below:18 to <50 >299.9 to <450.0 Grayzone: Pzkhmivl13 to 75 >299.9 to <900.0 other causes of>75 >299.9 to <1800.0 NT-proBNP vlinyccli31 to <50 >449.9 Positive: HF [id number] >899.9>75 >1799.9Note: Elevated NT-proBNP levels should be interpreted inthe context of other clinical information. 09/03/2025 11:5 4 AM EDT 09/03/2025 12:03 PM EDT us Generic External Data Provider LAB BLOOD ORDERAB LES Final Result Performing Organization Address [facility] Co de Phone Number [facility] [address] [place] [phone] * Lipase (09/03/2025 11:54 AM EDT) Lipase 25 8 - 78 U/L [facility] 09/03/2025 11:5 4 AM EDT 09/03/2025 12:03 PM EDT us Generic External Data Provider LAB BLOOD ORDERAB LES Final Result Performing Organization Address [facility]/ZIP Co de Phone Number [facility] [address] [place] [phone] * Magnesium (09/03/2025 11:54 AM EDT) Magnesium 1.7 1.6 - 2.6 mg/dL [facility] 09/03/2025 11:5 4 AM EDT 09/03/2025 12:03 PM EDT us Generic External Data Provider LAB BLOOD ORDERAB LES Final Result [facility] [address] [place] [phone] * (ABNORMAL) Comprehensive Metabolic Panel (09/03/2025 11:54 AM EDT) Sodium 134(L) 135 - 145 mmol/L [facility] Potassium 4.2 3.3 - 5.1 mmol/L [facility] Chloride 109(H) 96 - 108 mmol/L [facility] Carbon Dioxide 19(L) 22 - 29 mmol/L [facility] Anion Gap 10(L) 12 - 20 [facility] Urea Nitrogen (BUN) 14 9 - 16 mg/dL [facility] Creatinine, Serum 0.92 0.5 - 1.4 mg/dL [facility] Creatinine Clr Calc Pharmacy 71.9 [facility] Comment:eGFR (calculated fro m the MDRD study equation) and eCrCl(calculated from the Cockcroft-Gault equation) are based ondifferent parameters and may not yield comparable results.If eCrCl result is absurd, please check patient'sheight/weight. Estimated Glomerular Filt Rate >60 [facility] Comment:Chronic Kidney Disea se: Estimated GFR < 60 mL/min/1.80r8Cjoeud Kidney Disease: Estimated GFR < 15 mL/min/1.73m2 Glucose 81 60 - 115 mg/dL [facility] Calcium 8.6 8.4 - 10.2 mg/dL [facility] Bilirubin, Total 0.5 0.0 - 1.0 mg/dL [facility] Aspartate Amino Transferase 40(H) 5 - 37 U/L [facility] Alanine Aminotransferase 8 0 - 40 U/L [facility] Total Protein 7.7 6.5 - 8.0 g/dL [facility] Albumin Level 3.4(L) 3.5 - 5.0 g/dL [facility] Alkaline Phosphatase 95 39 - 117 U/L [facility] 09/03/2025 11:5 4 AM EDT 09/03/2025 12:03 PM EDT us Generic External Data Provider LAB BLOOD ORDERAB LES Final Result [facility] [address] [place] [phone] * (ABNORMAL) CBC auto differential (09/03/2025 11:54 AM EDT) White Blood Count 4.1(L) 4.8 - 10.8 X10*3/uL [facility] Red Blood Count 3.42(L) 4.60 - 5.80 X10*6/uL [facility] Hemoglobin 10.4(L) 14.0 - 18.0 g/dl [facility] Hematocrit 33.3(L) 42.0 - 52.0 % [facility] Mean Corpuscular Volume 97.4 80.0 - 98.0 fL [facility] Mean Corpuscular Hemoglobin 30.4 27.0 - 33.0 pg [facility] Mean Corpuscular HGB Conc 31.2 31.0 - 36.0 g/dl [facility] Red Cell Distribution Width 17.4(H) 11.0 - 16.0 % [facility] Platelet Count 59(L) 160 - 400 X10*3/uL [facility] Mean Platelet Volume 12.1 9.4 - 12.4 fL [facility] Neutrophils Percent Auto 66.9 45 - 73 % [facility] Imm Gran Pct Auto 1.2(H) 0.0 - 0.4 % [facility] Lymphocytes Percent Auto 14.5(L) 20 - 40 % [facility] Monocytes Percent Auto 14.0(H) 2 - 11 % [facility] Eosinophils Percent Auto 2.2 0 - 4 % [facility] Basophils Percent Auto 1.2 0 - 2 % [facility] NRBC Pct Auto 0.0 0.0 - 0.2 /100WBC [facility] Neutrophils Absolute Auto 2.8 2.0 - 8.3 x10*3/uL [facility] Imm Gran Abs Auto 0.05(H) 0.00 - 0.03 X10*3/uL [facility] Lymphocytes Absolute Auto 0.6(L) 1.2 - 4.9 X10*3/uL [facility] Monocytes Absolute Auto 0.6 0.1 - 1.2 X10*3/uL [facility] Eosinophils Absolute Auto 0.1 0.0 - 0.4 X10*3/uL [facility] Basophils Absolute Auto 0.1 0.0 - 0.2 X10*3/uL [facility] NRBC Abs Auto 0.000 0.0 - 0.012 X10*3/uL [facility] 09/03/2025 11:5 4 AM EDT 09/03/2025 12:03 PM EDT us Generic External Data Provider LAB BLOOD ORDERAB LES Final Result [facility] [address] [place] [phone] * Hold Lavender - Possible Hematology (09/03/2025 11:54 AM EDT) Hold Lavender - Possible Hematololgy SEE NOTE [facility] Comment:Specimen will be hel d untested for 8 hours. Call Hematologyif testing is desired. 09/03/2025 11:5 4 AM EDT 09/03/2025 12:02 PM EDT us Generic External Data Provider HISTORICAL/NON OR DERABLE LABS Final Result Performing Organization Address City/[facility]/ZIP Co de Phone Number [facility] [address] [place] [phone] * HOLD LT BLUE - POSSIBLE COAG (09/03/2025 11:54 AM EDT) Hold Lt Blue - Possible Coag SEE NOTE [facility] Comment:Specimen will be hel d untested for 4 hours. Call Hematologyif testing is desired. 09/03/2025 11:5 4 AM EDT 09/03/2025 12:02 PM EDT us Generic External Data Provider LAB BLOOD ORDERAB LES Final Result Performing Organization Address [facility] Co de Phone Number [facility] [address] [place] [address] [phone] documented in this encounter Visit Diagnoses Not on filedocumented in this encounter
--- OUTSIDE RECORDS SUMMARY | 2025-09-08 22:19 | XMS_ITS | Encounter Summary ---
Author Organization [facility] Address [address] [facility] [address] [place] [address] Phone Care Team Providers Care Delivery Professional Name Role Phone [facility], [facility] Primary Care Provider Pcp, Unknown Unavailable Unavailable Encounter Details Date Type Department Care Team (Late st Contact Info) Description 02/02/2024 Procedure Pass [facility] Endoscopy Admitting Dept Virtual Department [address] [place] [address] Social History Tobacco Use Types Packs/Day Years [...] on filedocumented in this encounter Care Teams Delivery Professional Relationship Specialty Start Date End Date [facility] [address] [place] [id number] PCP - General 10/07/23 Pcp, Unknown 10/07/23 documented as of this encounter Additional Source Comments The information contained in this document represents components of the legal health record. It is not the complete legal health record.[facility]
--- OUTSIDE RECORDS SUMMARY | 2025-09-08 22:19 | XMS_ITS | Clinical Summary ---
Author Organization [facility] Address [address] [place] [address] Phone Care Team Providers Care Alcohol And Drug Counselor Name Role Phone [facility], Facility Primary Care Provider Pcp, Unknown [...] magnesia). Active monobasic and dibasic sodium phosphates (63470 ENEMA) 19-7 gram/[address] 1 [...] with altered mental status from [facility] where he appeared more lethargic than [...] EST) SODIUM 137 133 - 146 mmol/L [facility] POTASSIUM 4.5 3.3 - 5.1 mmol/L [facility] CHLORIDE 105 96 - 108 mmol/L [facility] CO2 22 21 - 35 mmol/L [facility] BUN 14 6 - 19 mg/dL [facility] CREATININE 0.80 0.5 - 1.5 mg/dL [facility] GLUCOSE 104(H) 70 - 99 mg/dL [facility] ALBUMIN 4.1 3.9 - 4.8 g/dL [facility] TOTAL PROTEIN 8.1(H) 6.5 - 8.0 g/dL [facility] CALCIUM 10.4(H) 8.4 - 10.3 mg/dL [facility] ALKALINE PHOSPHATASE 118(H) 39 - 117 U/L [facility] TOTAL BILIRUBIN 0.6 0.0 - 1.2 mg/dL [facility] AST 25 0 - 37 U/L [facility] ALT 7 0 - 40 U/L [facility] GLOBULIN 4.0 1 - 4.8 g/dL [facility] EGFR 105 >59 mL/min/1.7 3m2 [facility] Comment:Estimated glomerular filtration rate calculated using the CKD-EPI refit equation. ANION GAP 15 10 - 20 mmol/L [facility] Blood 01/04/2024 9:22 AM EST 01/04/2024 9:53 AM EST Missy WALLACE LAB BLOOD ORDERABLES Fin al Result Performing Organization Address City/[facility]/ZIP Co de Phone Number [address] [address] * Hepatitis C antibody, qualitative (01/04/2024 9:22 AM EST) HCV NON-REACTIV E NON-REACTI VE [facility] Blood 01/04/2024 9:22 AM EST 01/04/2024 9:53 AM EST Missy WALLACE LAB BLOOD ORDERABLES Fin al Result Performing Organization Address [facility] Co de Phone Number [address] [address] from Last 3 Months or Most Recently Relevant to Health Maintenance Insurance [address] [address] [employer] [facility] [employer] [facility]3 [facility]3 [facility] [place] [address] [facility] C3 [employer] Advance Directives For more information, please contact: [phone] (9AM - 5PM [facility], Monday-Monday) Documents on File Type Date Recorded Patient Bell Clerk Expl anation Healthcare Proxy 10/09/2023 10:49 AM [...] Agents on File Name Relationship Healthcare Agent Gaid danyell Communication Guillermo Lobato .Primary Health Care Agent (Proxy form on file) Care Teams Alcohol And Drug Counselor Relationship Specialty Start Date End Date [facility] [address] [place] [address] PCP - General 10/07/23 Pcp, Unknown 10/07/23 Additional Source Comments The information contained in this document represents components of the legal health record. It is not the complete legal health record.[facility]
--- OUTSIDE RECORDS SUMMARY | 2025-09-08 22:19 | XMS_ITS | Encounter Summary ---
Author Organization [facility] Address [address] [facility] [address] [place] [address] Phone Care Team Providers Care Consulting Networking Engineer Name Role Phone [facility], [facility] Primary Care Provider Pcp, Unknown Unavailable Unavailable Encounter Details Date Type Department Care Team (Late st Contact Info) Description 01/04/2024 Transcribe Orders [facility] Laboratory [address] [place] [phone] Missy Miranda PA [address] [place] [phone] [email or web address] Need for hepatitis C screening test (Primary [...] EST) FERRITIN 168 30 - 400 ug/L [facility] Blood 01/04/2024 9:22 AM EST 01/04/2024 9:53 AM EST Missy WALLACE LAB BLOOD ORDERABLES Fin al Result Performing Organization Address City/[facility] Co de Phone Number [address] [address] * (ABNORMAL) PT-INR (01/04/2024 9:22 AM EST) [facility] PT 15.9(H) 10.2 - 12.9 sec [facility] INR 1.4(H) 0.9 - 1.1 [facility] Comment:Therapeutic range fo r oral Vitamin K antagonists: 2.0-3.5 Blood 01/04/2024 9:22 AM EST 01/04/2024 9:53 AM EST Missy WALLACE LAB BLOOD ORDERABLES Fin al Result Performing Organization Address City/[facility]/ZIP Co de Phone Number [address] [address] * Iron and iron binding capacity (01/04/2024 9:22 AM EST) IRON 81 45 - 160 ug/dL [facility] IRON BINDING CAPACITY 326 228 - 428 ug/dL [facility] TRANSFERRIN SATURAT. 25 20 - 55 % [facility] Blood 01/04/2024 9:22 AM EST 01/04/2024 9:53 AM EST Missy WALLACE LAB BLOOD ORDERABLES Fin al Result Performing Organization Address [facility] de Phone Number [address] [address] * Lipase (01/04/2024 9:22 AM EST) LIPASE 35 16 - 63 U/L [facility] Blood 01/04/2024 9:22 AM EST 01/04/2024 9:53 AM EST Missy WALLACE LAB BLOOD ORDERABLES Fin al Result Performing Organization Address [facility] de Phone Number [address] [address] * Hepatitis C antibody, qualitative (01/04/2024 9:22 AM EST) HCV NON-REACTIV E NON-REACTI VE [facility] Blood 01/04/2024 9:22 AM EST 01/04/2024 9:53 AM EST Missy WALLACE LAB BLOOD ORDERABLES Fin al Result Performing Organization Address [facility] de Phone Number [address] [address] * Hepatitis B surface antibody (01/04/2024 9:22 AM EST) HBV SURFACE ANTIBODY Negative [facility] Comment: Unvaccinated: Negative Vaccinated: Positive Blood 01/04/2024 9:22 AM EST 01/04/2024 9:53 AM EST Missy WALLACE LAB BLOOD ORDERABLES Fin al Result Performing Organization Address City/[facility]/ZIP Co de Phone Number [address] [address] * Hepatitis B surface antigen (01/04/2024 9:22 AM EST) HBV SURFACE ANTIGEN NON-REACTI VE NON-REACTI VE [facility] Blood 01/04/2024 9:22 AM EST 01/04/2024 9:53 AM EST Missy WALLACE LAB BLOOD ORDERABLES Fin al Result Performing Organization Address [facility] Co de Phone Number [address] [address] * Hepatitis B core antibody, total (01/04/2024 9:22 AM EST) HEP B CORE AB, TOT NON-REACTI VE NON-REACTI VE [facility] Blood 01/04/2024 9:22 AM EST 01/04/2024 9:53 AM EST Missy WALLACE LAB BLOOD ORDERABLES Fin al Result Performing Organization Address [facility] Co de Phone Number [address] [address] * HEPATITIS A ANTIBODY, TOTAL (01/04/2024 9:22 AM EST) HAV TOTAL AB NON-REACTI VE NON-REACTI VE [facility] Blood 01/04/2024 9:2 2 AM EST 01/04/2024 9:53 AM EST Missy WALLACE LAB BLOOD ORDERABLES Fin al Result Performing Organization Address City/[facility] Co de Phone Number [address] [address] * (ABNORMAL) GGT (Gamma glutamyl transferase) (01/04/2024 9:22 AM EST) GGT 54(H) 11 - 51 U/L [facility] Blood 01/04/2024 9:22 AM EST 01/04/2024 9:53 AM EST Missy WALLACE LAB BLOOD ORDERABLES Fin al Result [address] [address] * C-Reactive Protein (01/04/2024 9:22 AM EST) Pathologist [facility] C REACTIVE PROTEIN <3.0 0.0 - 4.0 mg/L [facility] Blood 01/04/2024 9:22 AM EST 01/04/2024 9:53 AM EST Missy WALLACE LAB BLOOD ORDERABLES Fin al Result Performing Organization Address City/[facility] Co de Phone Number [address] [address] * (ABNORMAL) Comprehensive metabolic panel (01/04/2024 9:22 AM EST) Pathologist [facility] SODIUM 137 133 - 146 mmol/L [facility] POTASSIUM 4.5 3.3 - 5.1 mmol/L [facility] CHLORIDE 105 96 - 108 mmol/L [facility] CO2 22 21 - 35 mmol/L [facility] BUN 14 6 - 19 mg/dL [facility] CREATININE 0.80 0.5 - 1.5 mg/dL [facility] GLUCOSE 104(H) 70 - 99 mg/dL [facility] ALBUMIN 4.1 3.9 - 4.8 g/dL [facility] TOTAL PROTEIN 8.1(H) 6.5 - 8.0 g/dL [facility] CALCIUM 10.4(H) 8.4 - 10.3 mg/dL [facility] ALKALINE PHOSPHATASE 118(H) 39 - 117 U/L [facility] TOTAL BILIRUBIN 0.6 0.0 - 1.2 mg/dL [facility] AST 25 0 - 37 U/L [facility] ALT 7 0 - 40 U/L [facility] GLOBULIN 4.0 1 - 4.8 g/dL [facility] EGFR 105 >59 mL/min/1.7 3m2 [facility] Comment:Estimated glomerular filtration rate calculated using the CKD-EPI refit equation. ANION GAP 15 10 - 20 mmol/L [facility] Blood 01/04/2024 9:22 AM EST 01/04/2024 9:53 AM EST us Missy WALLACE LAB BLOOD ORDERABLES Fin al Result Performing Organization Address City/State/[facility] Co de Phone Number [address] [address] * (ABNORMAL) CBC and differential (01/04/2024 9:22 AM EST) WBC 3.17(L) 4.00 - 11.00 K/uL [facility] RBC 3.41(L) 4.23 - 5.82 M/uL [facility] HGB 10.7(L) 13.4 - 17.5 g/dL [facility] HCT 33.8(L) 37.0 - 51.0 % [facility] PLT 64(L) 140 - 430 K/uL [facility] Comment:Consistent with prev ious result. MCV 99.1(H) 78.0 - 97.0 fL [facility] MCH 31.4 25.0 - 33.0 pg [facility] MCHC 31.7(L) 32.0 - 36.0 g/dL [facility] RDW 13.0 11.0 - 15.0 % [facility] MPV 13.2(H) 8.4 - 12.8 fl [facility] DIFF METHOD Auto [facility] NEUTS 57.2 43.0 - 75.0 % [facility] LYMPHS 24.9 18.2 - 47.4 % [facility] MONOS 12.0(H) 4.00 - 11.00 % [facility] EOS 4.7 0.0 - 8.0 % [facility] BASOS 0.9 0.0 - 2.0 % [facility] Granulocytes, immature (%) 0.3 0.0 - 0.9 % [facility] ABSOLUTE NEUTS 1.81 1.80 - 7.70 K/uL [facility] ABSOLUTE LYMPHS 0.79(L) 1.00 - 3.10 K/uL [facility] ABSOLUTE MONOS 0.38 0.20 - 0.80 K/uL [facility] ABSOLUTE EOS 0.15 0.00 - 0.80 K/uL [facility] ABSOLUTE BASOS 0.03 0.00 - 0.09 K/uL [facility] Granulocytes, immature 0.01 0.00 - 0.05 K/uL [facility] Blood 01/04/2024 9:22 AM EST 01/04/2024 9:53 AM EST [facility] LAB BLOOD ORDERABLES Fin al Result [address] [address] * (ABNORMAL) Immunoglobulin A (01/04/2024 9:22 AM EST) Pathologist [facility] IgA 436(H) 70 - 400 mg/dL [facility] Blood 01/04/2024 9:22 AM EST 01/04/2024 9:53 AM EST [facility] Nathaly Miranda [place] LAB BLOOD ORDERABLES Fin al Result [address] [address] * Tissue transglutaminase IgA (01/04/2024 9:22 AM EST) TTG IGA ANTIBODY 1.9 <4.0 (Negative) U/mL [facility]PATH [address] Blood 01/04/2024 9:22 AM EST 01/04/2024 9:53 AM EST Missy WALLACE LAB BLOOD ORDERABLES Fin al Result [facility] MED/PATH [id number] [place] [address] * Smooth Muscle Antibody (01/04/2024 9:22 AM EST) SMOOTH MUSCLE AB POSITIVE AT 1:20 [facility] Comment: Performing Physician, Max Jmienez M.D., [id number] Normal: Negative at 1:20 Blood 01/04/2024 9:22 AM EST 01/04/2024 9:53 AM EST Missy WALLACE LAB BLOOD ORDERABLES Fin al Result Performing Organization Address [facility] Co de Phone Number [address] [address] * Ceruloplasmin (01/04/2024 9:22 AM EST) CERULOPLASMIN 31 20 - 60 mg/dL [facility] Blood 01/04/2024 9:22 AM EST 01/04/2024 9:53 AM EST Missy WALLACE LAB BLOOD ORDERABLES Fin al Result Performing Organization Address [facility] Co de Phone Number [address] [address] * (ABNORMAL) Antinuclear antibody (JERMAIN) (01/04/2024 9:22 AM EST) JERMAIN SCREEN ON HEP 2 Positive(A ) Negative [facility] Comment:An JERMAIN Titer has bee n reflexed. The results will follow. Blood 01/04/2024 9:22 AM EST 01/04/2024 9:53 AM EST Missy WALLACE LAB BLOOD ORDERABLES Fin al Result Performing Organization Address City/[facility]/ZIP Co de Phone Number [facility] [address] [address] * Anti-Mitochondrial Antibody (AMA) (01/04/2024 9:22 AM EST) MITOCHONDRIAL AB NEGATIVE AT 1:20 [facility] Comment: Performing Physician, Max Jimenez M.D., [id number] Normal: Negative at 1:20 Blood 01/04/2024 9:22 AM EST 01/04/2024 9:53 AM EST Missy WALLACE LAB BLOOD ORDERABLES Fin al Result [address] [address] * Amylase (01/04/2024 9:22 AM EST) Pathologist [facility] AMYLASE 86 28 - 100 U/L [facility] Blood 01/04/2024 9:22 AM EST 01/04/2024 9:53 AM EST Missy WALLACE LAB BLOOD ORDERABLES Fin al Result Performing Organization Address City/[facility]/ZIP Co de Phone Number [address] [address] * AFP (non-maternal specimens) (01/04/2024 9:22 AM EST) Pathologist [facility] AFP (NON-MATERNAL) 4.7 <7.9 ng/mL [facility] Comment: Test Methodology Filipe [id number] Patient results determined by assays using different manufacturers or methods may not be comparable. Blood 01/04/2024 9:22 AM EST 01/04/2024 9:53 AM EST Missy WALLACE LAB BLOOD ORDERABLES Fin al Result Performing Organization Address City/[facility]/ZIP Co de Phone Number [address] [address] * Bukjo-1-svqrzzdomty phenotyping (01/04/2024 9:22 AM EST) ALPHA 1 ANTITRYPSIN 173 100 - 190 mg/dL [facility] MED/[facility] Comment: (NOTE) ADDITIONAL INFORMATION Method: Nephelometry A1A PHENOTYPE MM bands [facility] Comment: (NOTE) A single M isoform is detected. In the context of a normal yulrf-6-ckvkkwuhfaa concentration, this is consistent with an MM phenotype. ADDITIONAL INFORMATION Method: Isoelectric Focusing, This assay identifies the phenotype of the circulating xgqse-7-kxfmdffoqlo (A1A) protein. If the patient is on replacement therapy or has been recently transfused, the phenotype will detect patient and replacement or transfused plasma A1A protein. This test also cannot detect a null allele which could be responsible for an A1A deficiency. Blood 01/04/2024 9:22 AM EST 01/04/2024 9:53 AM EST Missy WALLACE LAB BLOOD ORDERABLES Fin al Result [facility] LAB MED/PATH [address] [place] [address] documented in this encounter Visit Diagnoses Diagnosis Need for hepatitis C screening test- Primary Special screening examination for other specified viral diseases Hepatic cirrhosis, unspecified hepatic cirrhosis type, unspecified whether ascites present Esophageal varices in alcoholic cirrhosis Esophageal varices without mention of bleeding documented in this encounter Care Teams Consulting Networking Engineer Relationship Specialty Start Date End Date [facility] [address] [place] [address] PCP - General 10/07/23 Pcp, Unknown 10/07/23 documented as of this encounter Additional Source Comments The information contained in this document represents components of the legal health record. It is not the complete legal health record.[facility]
[2025-09-09 05:01] VITALS: PULSE 78; RESP 16; O2SAT 93
--- NOTE | 2025-09-09 05:04 | PC.NURSE ---
remains asleep w/ even and unlabored respirations. 4L nasal cannula remains in place. no distress noted
[2025-09-09 06:23] VITALS: BP 123/58; PULSE 79; RESP 18; TEMP 37.2; O2SAT 91
--- NOTE | 2025-09-09 07:10 | ED.ALCOHOL ---
HPI - Alcohol General Chief Complaint: ETOH/Substance Use Stated Complaint: ETOH,AMS Time Seen by Provider: 09/09/25 00:52 Source: patient, EMS, RN notes reviewed and old records reviewed Mode of arrival: EMS Limitations: altered mental status (intoxication) History of Present Illness ED Provider: Dr. Lurdes Manjarrez HPI narrative: 55-year-old male with extensive alcoholism history, housing insecurity, very well known to this emergency department presenting with reported intoxication. Patient was found on the sidewalk by EMS and brought to the emergency department for evaluation. Patient is currently sleeping on my exam but was ultimately able to wake up and tells me that he had a nosebleed earlier today. The nose has stopped bleeding. He is extremely congested but denies fever or cough. No specific sick contacts though the patient has been in the emergency department multiple times in the last 7 days. Denies other illicit substance use. Related Data Home Medications ?Medication ?Instructions ?Recorded ?Confirmed No Known Home Meds 09/14/25 09/14/25 Allergies Allergy/AdvReac Type Severity Reaction Status Date / Time No Known Allergies (No Known Allergy Verified 09/13/25 20:09 Allergies*) Review of Systems Review of Systems: as per HPI, full review of systems performed and negative but for the above mentioned pertinent positives and negatives. PMFSH Past Medical History Medical History Hemorrhoids, internal, with bleeding Rectal bleeding Pancytopenia Alcohol withdrawal Alcohol use disorder, severe, dependence Pancytopenia Cirrhosis Hypomagnesemia Aspiration pneumonia Alcohol use disorder CHF (congestive heart failure) Alcohol abuse Acute hypoxemic respiratory failure Anemia Pneumonia Alcohol withdrawal syndrome Alcohol abuse Thrombocytopenia Esophageal varices Acute on chronic anemia Alcoholic liver disease Thrombocytopenia Malnutrition CHF (congestive heart failure) Anemia Thrombocytopenia Acute on chronic anemia CHF (congestive heart failure) Anemia Alcohol abuse Surgical History No history of previous surgery Social History Social History Household Members: None Household Members Other:: homeless Housing: Homeless Housing Other:: homeless Do you presently have visiting nurse or other home services: No Alcohol intake: current Alcohol intake frequency: 3 or more drinks per day Alcohol type: hard liquor Comment: pt refuse to have staff remain in [place] Patient Tobacco Use Status: Former Tobacco user Tobacco use type: Cigarette Smoked in Last 30 Days: No Second Hand Smoke Exposure: No Use of substances other than those prescribed or required for medical reasons: No Advance Directives: Yes Advance Directives on File: Yes Advance Directives Date on File: 07/13/23 Do you have a plan to hurt others: No Plan service: No Physical Exam ED Exam Exam: GENERAL: Appears intoxicated, GCS 13, eyes open to voice, slurred speech, no acute distress. SKIN: Normal skin color for ethnicity, warm, dry, no rashes noted. HEENT: Normocephalic, atraumatic, no stridor, posterior oropharynx nonerythematous, slight sinus congestion, no blood in the nares, poor kashia dentition, EOMI, pupils are pinpoint bilaterally, reactive to light. NECK: Soft, supple, no step-offs, no deformities, no lymphadenopathy. CHEST: Heart regular tachycardia, no murmurs, symmetric chest rise and fall. PULMONARY: Clear to auscultation bilaterally, diminished at the bases, no labored breathing, no wheezes/rhales/rhonchi. ABDOMINAL: Soft, nondistended, positive bowel sounds in all quadrants. : Deferred. MUSCULOSKELETAL: Normal tone, full range of motion, no deformities, no peripheral edema. NEURO: GCS 13, eyes open to voice, slightly slurred speech, CN II through XII intact, equal strength and sensation bilateral upper and lower extremities, no focal neurologic deficits. PSYCHIATRIC: Flat affect, poor eye contact. Vital Signs: Vital Signs - 24 hr 09/08/25 21:53 09/08/25 22:07 09/09/25 05:01 Temperature 97.8 F Pulse Rate 75 78 Respiratory Rate 16 16 Blood Pressure 118/75 Pulse Oximetry 85 L 100 93 Oxygen Delivery Method Room Air Nasal Cannula Nasal Cannula Oxygen Flow Rate 4 4 09/09/25 06:23 Temperature 99.0 F Pulse Rate 79 Respiratory Rate 18 Blood Pressure 123/58 L Pulse Oximetry 91 L Oxygen Delivery Method Nasal Cannula Oxygen Flow Rate 4 BMI result Body Mass Index 20.2 Medical Decision Making Medical Decision Making MDM Narrative: 55-year-old male with alcoholism presenting with nosebleed and alcohol intoxication. Differential diagnosis includes anterior epistaxis, posterior epistaxis, URI, sinus congestion, allergies, drug and alcohol abuse, among others. Patient not currently bleeding on my exam. Given nasal spray to help with sinus congestion. Discharged in stable and improved condition once sober. Differential Diagnosis Differential Diagnoses: The differential diagnosis associated with the presentation includes (As above) Admission/Observation Consideration of admission/observation: Escalation of care including admission/observation considered Independent Historian Clinical information obtained from an independent historian. History obtained from or confirmed by: EMS External Record Review External record reviewed: Inpatient record Prescription Management I considered prescription management with: Other (Nasal spray) Chronic Conditions Patient?s care impacted by: Other (Alcohol use disorder) Social Determinants Patient?s care significantly limited by Social Determinants of Health including: Inadequate housing, Alcoholism and drug addiction in family and Other Social Determinant of Health Medications Administered Discontinued Medications Generic Name Dose Route Start Last Admin Trade Name Freq PRN Reason Stop Dose Admin Loratadine 10 mg 09/09/25 07:10 09/09/25 07:35 Loratadine 10 Mg Tablet PO 09/09/25 07:11 10 mg ONCE ONE Administration Oxymetazoline HCl 2 spray 09/09/25 07:09 09/09/25 07:35 Oxymetazoline Hcl 0.05 % Nasal 15 Ml Randle NOSTRIL-B 09/09/25 07:10 2 spray ONCE ONE Administration Discharge Plan Discharge Clinical Impression: Congestion of nasal sinus, Acute anterior epistaxis, Alcohol intoxication Patient Disposition: Home, Self-Care Instructions: How to Use Nasal Randle (ED) Prescriptions: No Action No Known Home Meds Interventions: ED Discharge Assessment Last Done: 09/09/25 07:42 Discharge Date/Time: 09/09/25 07:43 Print Language: Upper Sorbian
[2025-09-09] MEDS: Oxymetazoline HCl 0.05 % Nasal 15 ML SPRAY 2 SPRAY NOSTRIL-B (07:35)
[2025-09-09 07:42] VITALS: BP 123/58; PULSE 79; RESP 18; TEMP 37.2; O2SAT 91
== END 2025-09-09 07:43 | disposition home or self-care (01) ==
PROVIDERS: Emergency Provider Emergency Medicine
DX: F10.129 Alcohol abuse with intoxication, unspecified (principal); Y90.9 Presence of alcohol in blood, level not specified; R09.81 Nasal congestion; R04.0 Epistaxis; R41.82 Altered mental status, unspecified; Z87.891 Personal history of nicotine dependence
CPT/HCPCS: 99284

== ENCOUNTER 2025-09-10 22:54 | Emergency (ER) | payer MEDICAID, SELFPAY ==
--- NOTE | ~2025-09-10 | XR_ITS ---
CLINICAL HISTORY: hypoxia 1 view chest x-ray Comparison: Chest x-ray from 08/21/2025 and 09/06/2025 Findings: Mild interstitial opacities may reflect recurrent pulmonary edema or mild pneumonitis. Emphysematous changes are redemonstrated. Continued improved aeration of both lungs compared to 08/21/2025. No definite pneumothorax or pleural effusion. Borderline cardiomegaly accentuated by AP technique. Degenerative changes include imaged shoulders and AC joints. IMPRESSION: Mild interstitial opacities are nonspecific and may reflect mild recurrent pulmonary edema. This document has been electronically signed by: Phillip Anthony MD on 09/11/2025 01:18:41
[2025-09-10 23:13] VITALS: BP 105/61; BP 138/84; PULSE 82; RESP 20; TEMP 36.8; O2SAT 94; O2SAT 95; BMI 19.4
[2025-09-11] VITALS (9 sets, daily range): BP systolic 94–102; BP diastolic 44–62; PULSE 73–79; RESP 16–20; TEMP 37.4–37.6; O2SAT 88–96
--- NOTE | 2025-09-11 00:38 | ED.GENADULT ---
HPI - General Adult General Chief complaint: ETOH/Substance Use Stated complaint: ETOH Time Seen by Provider: 09/11/25 00:16 Source: patient, RN notes reviewed and old records reviewed Mode of arrival: EMS Limitations: other (Acute alcohol intoxication) History of Present Illness ED Provider: Chapis HPI narrative: 55-year-old male past medical history significant for chronic alcoholism, liver cirrhosis, congestive heart failure, homelessness presents for evaluation of alcohol abuse. The patient also reports feeling cold outside. He denies shortness of breath but was reportedly found with an SpO2 of 80% on room air by EMS. The patient was placed on 3 L in his oxygen saturation has been 94% The patient denies any pain. Denies any fevers or chills pain He reports ?I am tired. ? The patient was recently admitted on 09/03/2025 and discharged 2 days later on 09/05/2025 He was admitted for alcohol use disorder, rectal bleeding He was noted to have acute on chronic hypoxic respiratory failure. In his worth noting that the patient had previously qualified for home supplemental oxygen of 2 L at rest and 4 L ambulation. The patient has declined to go to a skilled nursing or to his brother's house where this would be facilitated and therefore he has continued to decline supplemental oxygen. Related Data Previous Rx's ?Medication ?Instructions ?Recorded fluticasone furoate 100 1 inh inhalation DAILY #30 ea 09/09/25 mcg/actuation blister powder for inhalation Allergies Allergy/AdvReac Type Severity Reaction Status Date / Time No Known Allergies (No Known Allergy Verified 09/10/25 23:16 Allergies*) Review of Systems Constitutional: Constitutional: Denies body ache(s), Denies chills, Denies fever(s) and Denies headache(s) ENT: Denies vertigo, Denies dizziness, Denies dry mouth and Denies headache(s) Cardiovascular: Cardiovascular: Denies chest pain, Denies dyspnea and Denies dyspnea on exertion Respiratory: Respiratory: Denies chest congestion, Denies cough, Denies dyspnea and Denies dyspnea on exertion Gastrointestinal: Gastrointestinal: Denies abdominal pain Musculoskeletal: Musculoskeletal: Denies back pain Integumentary/Breasts: Skin/Breast: Denies rash Neurologic: Denies vertigo, Denies dizziness and Denies headache(s) COUNTS INCLUDE 234 BEDS AT THE [facility] Past Medical History Medical History Hemorrhoids, internal, with bleeding Rectal bleeding Pancytopenia Alcohol withdrawal Alcohol use disorder, severe, dependence Pancytopenia Cirrhosis Hypomagnesemia Aspiration pneumonia Alcohol use disorder CHF (congestive heart failure) Alcohol abuse Acute hypoxemic respiratory failure Anemia Pneumonia Alcohol withdrawal syndrome Alcohol abuse Thrombocytopenia Esophageal varices Acute on chronic anemia Alcoholic liver disease Thrombocytopenia Malnutrition CHF (congestive heart failure) Anemia Thrombocytopenia Acute on chronic anemia CHF (congestive heart failure) Anemia Alcohol abuse Surgical History No history of previous surgery Social History Social History Household Members: None Household Members Other:: homeless Housing: Homeless Housing Other:: homeless Do you presently have visiting nurse or other home services: No Alcohol intake: current Alcohol intake frequency: 3 or more drinks per day Alcohol type: hard liquor Comment: pt refuse to have staff remain in BR Patient Tobacco Use Status: Former Tobacco user Tobacco use type: Cigarette Second Hand Smoke Exposure: No Advance Directives: Yes Advance Directives on File: Yes Advance Directives Date on File: 07/13/23 service: No Physical Exam ED Vital Signs: Vital Signs - 24 hr 09/10/25 23:13 09/11/25 02:35 09/11/25 04:02 Temperature 98.2 F Pulse Rate 82 77 73 Respiratory Rate 20 17 18 Blood Pressure 105/61 102/62 101/52 L Pulse Oximetry 94 92 96 Oxygen Delivery Method Nasal Cannula Nasal Cannula Nasal Cannula Oxygen Flow Rate 4 4 09/11/25 04:06 09/11/25 04:55 09/11/25 04:58 Temperature Pulse Rate 75 Respiratory Rate 20 Blood Pressure 101/50 L Pulse Oximetry 91 L 88 L 92 Oxygen Delivery Method Nasal Cannula Nasal Cannula Nasal Cannula Oxygen Flow Rate 2 2 3 09/11/25 05:36 09/11/25 06:53 09/11/25 11:14 Temperature 99.7 F 99.7 F 99.4 F Pulse Rate 78 76 79 Respiratory Rate 17 20 17 Blood Pressure 99/44 L 94/47 L 97/46 L Pulse Oximetry 95 91 L 91 L Oxygen Delivery Method Nasal Cannula Room Air Nasal Cannula Oxygen Flow Rate 3 4 BMI result Body Mass Index 19.4 Const General: comfortable, no acute distress, alert and awake Nutritional Appearance: well nourished Orientation/consciousness: patient oriented x3 HENMT Head: Yes normocephalic and Yes atraumatic Eyes Eyelids: Yes eyelids normal Conjunctivae: conjunctivae normal Sclerae: sclerae normal Corneas: corneas normal Pupils: Equal, round and reactive pupils present EOM: EOMs intact bilaterally Neck Neck: Yes full ROM Resp Effort & Inspection: normal respiratory effort, able to speak in complete sentences, no audible wheezes and not labored Auscultation: clear to auscultation bilaterally Cardio Rate: regular rate Rhythm: regular rhythm GI Inspection: No distended Palpation (GI): Soft to palpation, not firm, nontender, no guarding and not rigid Skin General skin exam: elasticity normal Neuro General: patient oriented x3 Cranial nerves: Yes Equal, round and reactive pupils present and Yes Bilaterally intact EOM present Cognition (Neuro): normal cognition Extrem Other: Moving all extremities well without any obvious deformities Course Reevaluation(s) Reevaluation #1: Patient's chest x-ray does show recurrent pulmonary edema. No evidence of significant consolidation. Given the recurrent pulmonary edema and hypoxia ordered labs including a pro BNP and a dose of Lasix. Time: 01:39 Reevaluation #2: Patient was signed out with alcohol intoxication, patient at this time wants to leave the hospital he refused admission. The patient is well known to the staff. He has a history of congestive heart failure refused admission he eloped Medications Administered Discontinued Medications Generic Name Dose Route Start Last Admin Trade Name Freq PRN Reason Stop Dose Admin Furosemide 40 mg 09/11/25 01:22 09/11/25 02:21 Furosemide 40 Mg/4 Ml Vial IVPUSH 09/11/25 01:23 40 mg ONCE ONE Administration Protocol Medical Decision Making Medical Decision Making MDM Narrative: 55-year-old male with complicated medical history as detailed above presenting for evaluation of homelessness and being o'clock. He denies shortness of breath but has noted to be hypoxic, again he is supposed to be on home O2 but continues to decline this option. His knee sent the patient is letter requesting status help facilitate getting him into a skilled nursing. The patient immediately states that he does not want to go to a skilled nursing. Given his hypoxia we will obtain a chest x-ray. He has no fever and again is noncompliant with supplemental oxygen. He has no lower extremity edema. The patient is currently refusing any lab draws or ?I do not want needles. ? Differential Diagnosis Differential Diagnoses: The differential diagnosis associated with the presentation includes Acute alcohol withdrawal Acute alcohol intoxication Homeless Malingering CHF Pneumonitis Lab Data 09/11/25 02:01 09/11/25 02:01 Labs: Lab Results 09/11/25 Range/Units 02:01 WBC 4.7 L (4.8-10.8) X10*3/uL RBC 3.07 L (4.60-5.80) X10*6/uL Hgb 9.2 L (14.0-18.0) g/dl Hct 28.8 L (42.0-52.0) % MCV 93.8 (80.0-98.0) fL MCH 30.0 (27.0-33.0) pg MCHC 31.9 (31.0-36.0) g/dl RDW 17.0 H (11.0-16.0) % Plt Count 87 L D (160-400) X10*3/uL MPV 12.9 H (9.4-12.4) fL Immature Gran % (Auto) 0.2 (0.0-0.4) % Neut % (Auto) 63.5 (45-73) % Lymph % (Auto) 20.4 (20-40) % [place] % (Auto) 11.2 H (2-11) % Eos % (Auto) 3.6 (0-4) % Baso % (Auto) 1.1 (0-2) % Lymph # (Auto) 1.0 L (1.2-4.9) X10*3/uL [place] # (Auto) 0.5 (0.1-1.2) X10*3/uL Eos # (Auto) 0.2 (0.0-0.4) X10*3/uL Baso # (Auto) 0.1 (0.0-0.2) X10*3/uL Abs Immat Gran (auto) 0.01 (0.00-0.03) X10*3/uL Absolute Neuts (auto) 3.0 (2.0-8.3) x10*3/uL Absolute Nucleated RBC 0.000 (0.0-0.012) X10*3/uL Nucleated RBC % (auto) 0.0 (0.0-0.2) /100WBC Sodium 139 (135-145) mmol/L Potassium 3.8 (3.3-5.1) mmol/L Chloride 110 H (96-108) mmol/L Carbon Dioxide 18 L (22-29) mmol/L Anion Gap 15 (12-20) BUN 13 (9-16) mg/dL Creatinine 0.90 (0.5-1.4) mg/dL Estim Creat Clear Calc 70.5 Estimated GFR > 60 Random Glucose 108 (60-115) mg/dL Calcium 8.2 L (8.4-10.2) mg/dL Total Bilirubin 0.4 (0.0-1.0) mg/dL AST 51 H (5-37) U/L ALT 14 (0-40) U/L Alkaline Phosphatase 123 H (39-117) U/L NT-Pro-B Natriuret Pep 213.9 (<300) pg/mL Total Protein 7.6 (6.5-8.0) g/dL Albumin 3.3 L (3.5-5.0) g/dL Independent Interpretation I performed an independent interpretation of an: EKG Interpretation: Normal sinus rhythm with a rate of 73 beats per minute. No ST segment elevation or depressions. QTC is prolonged to 517 Discharge Plan Discharge Clinical Impression: Alcohol intoxication, COPD (chronic obstructive pulmonary disease) Patient Disposition: Elopement Instructions: Alcohol Intoxication (ED) Prescriptions: No Action fluticasone furoate 100 mcg/actuation blister with device 1 inh inhalation DAILY Qty: 30 0RF Print Language: Arabic
--- NOTE | 2025-09-11 01:22 | ECG_ITS ---
Test Reason : ETOH Blood Pressure : */* mmHG Vent. Rate : 73 BPM Atrial Rate : 73 BPM P-R Int : 154 ms QRS Dur : 92 ms QT Int : 470 ms P-R-T Axes : 45 22 38 degrees QTcB Int : 517 ms Normal sinus rhythm Minimal voltage criteria for LVH, may be normal variant ( Sokolow-Cunningham ) Prolonged QT Abnormal ECG When compared with ECG of 03-Sep-2025 12:02, T wave inversion no longer evident in Inferior leads QT has lengthened Referred By: Frederick Nation Electronically Signed By: EDITA HALE
[2025-09-11 02:07] LABS: Hematocrit 28.8 % (42.0-52.0); Hemoglobin 9.2 g/dl (14.0-18.0); Imm Gran Abs Auto 0.01 X10*3/uL (0.00-0.03); Imm Gran Pct Auto 0.2 % (0.0-0.4); Lymphocytes Absolute Auto 1.0 X10*3/uL (1.2-4.9); MANUAL DIFF FLAG NO; Mean Corpuscular HGB Conc 31.9 g/dl (31.0-36.0); Mean Corpuscular Hemoglobin 30.0 pg (27.0-33.0); Mean Corpuscular Volume 93.8 fL (80.0-98.0); NRBC Abs Auto 0.000 X10*3/uL (0.0-0.012); NRBC Pct Auto 0.0 /100WBC (0.0-0.2); Platelet Count 87 X10*3/uL (160-400); Red Blood Count 3.07 X10*6/uL (4.60-5.80); White Blood Count 4.7 X10*3/uL (4.8-10.8)
[2025-09-11] MEDS: Furosemide 40 MG/4 ML VIAL IVPUSH (02:21)
[2025-09-11 02:22] LABS: Alanine Aminotransferase 14 U/L (0-40); Albumin Level 3.3 g/dL (3.5-5.0); Alkaline Phosphatase 123 U/L (39-117); Anion Gap 15 (12-20); Aspartate Amino Transferase 51 U/L (5-37); Blood Urea Nitrogen 13 mg/dL (9-16); Calcium 8.2 mg/dL (8.4-10.2); Carbon Dioxide 18 mmol/L (22-29); Chloride 110 mmol/L (96-108); Creatinine Clr Calc Pharmacy 70.5; Estimated Glomerular Filt Rate > 60; Potassium 3.8 mmol/L (3.3-5.1); Sodium 139 mmol/L (135-145); Total Protein 7.6 g/dL (6.5-8.0)
[2025-09-11 02:26] LABS: NT Pro B Type Natriuretic Pept 213.9 pg/mL (<300)
--- NOTE | 2025-09-11 04:29 | PC.NURSE ---
Pt voided 300mLs clear yellow urine in urinal.
--- NOTE | 2025-09-11 04:56 | PC.NURSE ---
Pt spO2 found to be 87% on 2L NC. Pt O2 increased to 3L. spO2 improved to 92%. Provider notified.
== END 2025-09-11 14:10 | disposition left against medical advice (07) ==
PROVIDERS: Physician Assistant; Emergency Provider Emergency Medicine
DX: F10.129 Alcohol abuse with intoxication, unspecified (principal); J44.9 Chronic obstructive pulmonary disease, unspecified; R09.02 Hypoxemia
CPT/HCPCS: 36415; 71045; 80053; 83880; 85025; 93005; 96374; 99284; J1938

== ENCOUNTER → 2025-09-11 00:25 | Outpatient (BNV) | payer MEDICAID, SELFPAY | PROVIDERS: Emergency Provider Emergency Medicine Emergency Medical Services; Visit Provider Radiology Neuroradiology | DX: R09.02 Hypoxemia (principal) | CPT/HCPCS: 71045 ==

== ENCOUNTER → 2025-09-11 01:22 | Outpatient (BNV) | payer MEDICAID, SELFPAY | PROVIDERS: Emergency Provider Emergency Medicine; Visit Provider Internal Medicine | DX: R94.31 Abnormal electrocardiogram [ECG] [EKG] (principal); F10.20 Alcohol dependence, uncomplicated | CPT/HCPCS: 93010 ==

== ENCOUNTER 2025-09-11 21:16 | Emergency (ER) | payer MEDICAID, SELFPAY ==
[2025-09-11 21:25] VITALS: BP 107/62; BP 138/86; PULSE 72; PULSE 84; RESP 18; TEMP 36.5; O2SAT 94; O2SAT 97; BMI 20.5
--- OUTSIDE RECORDS SUMMARY | 2025-09-11 21:52 | XMS_ITS | Encounter Summary ---
Author Organization [employer] Address [address] [place] [address] 7 [place] [address] Care Team Providers Care Brake Rider Name Role Phone Unavailable Primary Care Provider Unavailabl e Encounter Details Date Type Department Care Team (Late st Contact Info) Description 09/06/2025 Orders Only [facility] External Provider, [facility] Social History Tobacco Use Types Packs/Day [...] PM EDT Narrative 09/06/2025 12:06 PM EDT [address] [address] [address] Scan Report Signed Patient: Charbel Delgado MR#: [id number] : 1970 Acct:[id number] Age/Sex: 55 / M ADM Date: 09/06/25 Loc: HO.ED Attending Dr: Ordering Physician: Abril Sam Date of Service: 09/06/25 Procedure(s): CT angio chest PE protocol Accession Number(s): [id number] cc: Abril Sam; [facility] Report Number: [id number]: Total DLP = 188.00 mGy-cm Reason for [...] 09/06/25 1205 DD/ 120 TD/TT: 09/06/25 120 Tobacco Classer: Procedure Note Donotuseinterpreter, Image - 09/06/[address] [place] [address] [address] Scan Report Signed Patient: Isaias Delgado#: [id number] : 1970Acct:[id number] Age/Sex: 55 / MADM Date: 09/06/25 Loc: HO.ED Attending Dr: Ordering Physician: Abril Sam Date of Service: 09/06/25 Procedure(s): CT angio chest PE protocol Accession Number(s): [id number] cc: Abril Sam; [facility] Report Number: [id number]: Total DLP = 188.00 mGy-cm Reason for [...] 09/06/25 1205 DD/ 1204 TD/TT: 09/06/25 1204 Tobacco Classer: [facility] External Provider IMG CT PROCEDURES Edited Result - Final * Blood Culture (Second) (09/06/2025 8:50 AM EDT) Blood Venous blood specimen / Unknown 09/06/2025 8:50 AM EDT 09/06/2025 8:54 AM EDT Comment:Blood Narrative [facility] - 09/11/2025 10:54 AM EDT Blood Culture (Second) No growth after 5 days. Specimen Source: Blood Generic External Data Provider LAB MICROBIOLOGY - GENERAL ORDERABLES Final Result [facility] [address] [place] [address] [phone] * (ABNORMAL) Sed Rate by Modified Westergren (09/06/2025 8:50 AM EDT) Erythrocyte Sedimentation Rate 46(H) 0 - 15 MM/HR [facility] Comment:Patients with polycy themia and many hemoglobin abnormalitiesmay have depressed sed rates whereas patients with anemiamay have elevated sed rates. 09/06/2025 8:50 AM EDT 09/06/2025 8:54 AM EDT Generic External Data Provider LAB BLOOD ORDERAB LES Final Result Performing Organization Address [facility] de Phone Number [facility] [address] [place] [phone] * (ABNORMAL) C-reactive Protein (09/06/2025 8:50 AM EDT) Pathologist [facility] [place] C Reactive Protein 0.57(H) < or = 0.50 mg/dL [facility] 09/06/2025 8:50 AM EDT 09/06/2025 8:54 AM EDT Generic External Data Provider LAB BLOOD ORDERAB LES Final Result Performing Organization Address [facility] de Phone Number [facility] [address] [place] [phone] * (ABNORMAL) VENOUS BLOOD GAS (09/06/2025 8:48 AM EDT) Pathologist [facility] [place] VBG pH 7.43 7.32 - 7.43 [facility] Comment:METER #: [id number] additional_comment: Cb gentilj VBG PCO2 29 mmHg [facility] Comment:METER #: [id number] additional_comment: Cb gentilj VBG PO2 71 mmHg [facility] Comment:METER #: [id number] additional_comment: Cb gentilj VBG Base Excess -3.3 mmol/L [facility] Comment:METER #: [id number] additional_comment: Cb gentilj VBG HCO3 20(L) 22 - 26 mmol/L [facility] Comment:METER #: [id number] additional_comment: Cb gentilj O2 Sat, Demetrio 92.0 % [facility] Comment:METER #: [id number] additional_comment: Cb gentilj 09/06/2025 8:48 AM EDT 09/06/2025 8:51 AM EDT us Generic External Data Provider LAB BLOOD ORDERAB LES Final Result Performing Organization Address [facility]/ZIP Co de Phone Number [facility] [address] [place] [address] [phone] * COVID-19 ID NOW (YARBROUGH) (09/06/2025 8:42 AM EDT) IDNOW SERIAL# [id number] [facility] COVID-19 TEST Negative Negative [facility] COVID-19 NOTE See Note [facility] Comment: Results are for the identification of SARS-CoV2 RNA. TheSARS-CoV2 RNA is generally detectable in respiratory samplesduring the acute phase of infection. Positive results areindicative of the presence of SARS-CoV-2 RNA; clinicalcorrelation with patient history and other diagnosticinformation is necessary to determine patient infectionstatus. Positive results do not rule out bacterial infectionor co- infection with other viruses.Testing facilities within the [facility] and [facility] are required to report all positive results [...] LAB MOLECULAR YAO GNOSTICS ORDERABLES Final Result [facility] [address] [place] [phone] * Influenza A B2 ID NOW (Yarbrough) (09/06/2025 8:42 AM EDT) IDNOW SERIAL# [id number] [facility] Influenza A Negative Negative [facility] Influenza B2 Negative Negative [facility] Influenza A B2 Note See Note [facility] Comment:The Yarbrough ID NOW In [...] GENERAL ORDERABLES Final Result Performing Organization Address City/[facility]/ZIP Co de Phone Number [facility] [address] [place] [phone] * Blood Culture (First) (09/06/2025 8:41 AM EDT) Blood Venous blood specimen / Unknown 09/06/2025 8:41 AM EDT 09/06/2025 8:46 AM EDT Comment:Blood Narrative [facility] - 09/11/2025 10:47 AM EDT Blood Culture (First) No growth after 5 days. Specimen Source: Blood us Generic External Data Provider LAB MICROBIOLOGY - GENERAL ORDERABLES Final Result Performing Organization Address City/[facility]/ZIP Co de Phone Number [facility] [address] [place] [phone] * Urinalysis, Complete, with Reflex to Culture (09/06/2025 8:41 AM EDT) Color Urine Yellow [facility] Appearance Urine Clear [facility] PH 6.5 5.0 - 9.0 [facility] Glucose Urine UA Negative Negative mg/dL [facility] Urine Blood Negative Negative [facility] Specific [place] - Urine 1.010 1.005 - 1.025 [facility] Urine Protein Negative Neg-Trace mg/dL [facility] Urine Ketones Negative Negative mg/dL [facility] Nitrite Urine Negative Negative [facility] Leukocyte Esterase Urine Negative Negative [facility] RBC Urine 0-2 0 - 2 /HPF [facility] Urine WBC 0-5 0 - 5 /HPF [facility] Urine Squamous Epithelial Cell 0-2 0 - 2 /HPF [facility] Urine Bacteria None Seen None Seen [facility] Hyaline Casts, Urine 0-2 0 - 2 /LPF [facility] 09/06/2025 8:41 AM EDT 09/06/2025 8:46 AM EDT Narrative [facility] - 09/06/2025 8:58 AM EDT [id number], Clean Catch us Generic External Data Provider LAB URINE ORDERAB LES Final Result [facility] [address] [place] [phone] * (ABNORMAL) Lactic Acid (09/06/2025 5:29 AM EDT) Lactic Acid 2.4(HH) 0.5 - 2.0 mmol/L [facility] Comment:Critical value for t est(s):LACTIC ACID Results called toand read back by: ELIU Person calling:AMINATA Date:09/06/25 Time:0558 09/06/2025 5:29 AM EDT 09/06/2025 5:33 AM EDT us Generic External Data Provider LAB BLOOD ORDERAB LES Final Result Performing Organization Address [facility] de Phone Number [facility] [address] [place] [phone] * (ABNORMAL) Lactic Acid (09/06/2025 3:11 AM EDT) Lactic Acid 3.0(HH) 0.5 - 2.0 mmol/L [facility] Comment:Critical value for t est(s):LACTIC ACID Results called toand read back by:ALIA Person calling:ALEate:09/06/25 Time:033 09/06/2025 3:11 AM EDT 09/06/2025 3:15 AM EDT Generic External Data Provider LAB BLOOD ORDERAB LES Final Result Performing Organization Address [facility] de Phone Number [facility] [address] [place] [phone] * XR Chest 1 View (09/06/2025 12:54 AM EDT) Anatomical Region Laterality Modality Chest Radiographic Lamar ging 09/06/2025 12:5 4 AM EDT Narrative 09/06/2025 12:57 AM EDT [address] [address] XRay Report Signed Patient: Charbel Delgado MR#: [id number] : 1970 Acct:[id number] Age/Sex: 55 / M ADM Date: 09/06/25 Loc: HO.ED Attending Dr: Ordering Physician: David Galvez PA-C Date of Service: 09/06/25 Procedure(s): XR chest 1V Accession Number(s): [id number] cc: [facility]; David Galvez PA-C Reason for Exam: Hypoxia [...] MD in OV> 09/06/2555 DD/ TD/TT: 09/06/2553 Tobacco Classer: Procedure Note Donotuseinterpreter, Image - 09/06/2025 [place] [address] XRay Report Signed Patient: Isaias Delgado#: [id number] : 1970Acct:[id number] Age/Sex: 55 / MADM Date: 09/06/25 Loc: .ED Attending Dr: Ordering Physician: David Galvez PA-C Date of Service: 09/06/25 Procedure(s): XR chest 1V Accession Number(s): [id number] cc: [facility]; David Galvez PA-C Reason for Exam: Hypoxia [...] This document has been electronically signed by: Randla Mendoza MD on 09/06/2025 00:54:28 Dictated By: Randal Mendoza MD Signed By: <Electronically signed by Randal Mendoza MD in OV> 09/06/2555 DD/ TD/TT: 09/06/2553 Tobacco Classer: [facility] External Provider IMG XR PROCEDURES Final Result * Slide Review (09/06/2025 12:46 AM EDT) Slide Review VERIFIED [facility] 09/06/2025 12:4 6 AM EDT 09/06/2025 12:51 AM EDT us Generic External Data Provider LAB BLOOD ORDERAB LES Final Result [facility] [address] [place] [phone] * (ABNORMAL) CBC auto differential (09/06/2025 12:46 AM EDT) White Blood Count 3.9(L) 4.8 - 10.8 X10*3/uL [facility] Red Blood Count 3.33(L) 4.60 - 5.80 X10*6/uL [facility] Hemoglobin 10.1(L) 14.0 - 18.0 g/dl [facility] Hematocrit 31.6(L) 42.0 - 52.0 % [facility] Mean Corpuscular Volume 94.9 80.0 - 98.0 fL [facility] Mean Corpuscular Hemoglobin 30.3 27.0 - 33.0 pg [facility] Mean Corpuscular HGB Conc 32.0 31.0 - 36.0 g/dl [facility] Red Cell Distribution Width 16.9(H) 11.0 - 16.0 % [facility] Platelet Count 50(L) 160 - 400 X10*3/uL [facility] Neutrophils Percent Auto 65.9 45 - 73 % [facility] Imm Gran Pct Auto 1.3(H) 0.0 - 0.4 % [facility] Lymphocytes Percent Auto 18.7(L) 20 - 40 % [facility] Monocytes Percent Auto 10.5 2 - 11 % [facility] Eosinophils Percent Auto 2.6 0 - 4 % [facility] Basophils Percent Auto 1.0 0 - 2 % [facility] NRBC Pct Auto 0.0 0.0 - 0.2 /100WBC [facility] Neutrophils Absolute Auto 2.6 2.0 - 8.3 x10*3/uL [facility] Imm Gran Abs Auto 0.05(H) 0.00 - 0.03 X10*3/uL [facility] Lymphocytes Absolute Auto 0.7(L) 1.2 - 4.9 X10*3/uL [facility] Monocytes Absolute Auto 0.4 0.1 - 1.2 X10*3/uL [facility] Eosinophils Absolute Auto 0.1 0.0 - 0.4 X10*3/uL [facility] Basophils Absolute Auto 0.0 0.0 - 0.2 X10*3/uL [facility] NRBC Abs Auto 0.000 0.0 - 0.012 X10*3/uL [facility] 09/06/2025 12:4 6 AM EDT 09/06/2025 12:51 AM EDT us Generic External Data Provider LAB BLOOD ORDERAB LES Edited Result - Final [facility] [address] [place] [phone] * NT-proBNP (09/06/2025 12:46 AM EDT) NT-proBNP 62.2 <300 pg/mL [facility] Comment:Reference Range:Age Group (years) NT-proBNP (pg/ml) InterpretationAll <300 Negative: HF unlikelyFor patients presenting to the ED with clinical suspicion ofnew onset or worsening HF, see below:18 to <50 >299.9 to <450.0 Grayzone: Lrabylpt66 to 75 >299.9 to <900.0 other causes of>75 >299.9 to <1800.0 NT-proBNP [id number] to <50 >449.9 Positive: HF -23 >899.9>75 >1799.9Note: Elevated NT-proBNP levels should be interpreted inthe context of other clinical information. 09/06/2025 12:4 6 AM EDT 09/06/2025 12:51 AM EDT Generic External Data Provider LAB BLOOD ORDERAB LES Final Result Performing Organization Address [facility] de Phone Number [facility] [address] [place] [phone] * (ABNORMAL) Lactic Acid (09/06/2025 12:46 AM EDT) [facility] Lactic Acid 2.2(HH) 0.5 - 2.0 mmol/L [facility] Comment:Critical value for t est(s): LACTIC ACID Results called toand read back by: NEFTALI Person calling:ALEate:09/06/25 Time:0113 09/06/2025 12:4 6 AM EDT 09/06/2025 12:51 AM EDT Generic External Data Provider LAB BLOOD ORDERAB LES Final Result Performing Organization Address [facility] de Phone Number [facility] [address] [place] [phone] * Ethanol (09/06/2025 12:46 AM EDT) [facility] ETHANOL (MG/DL) IN SER/PLAS 153 mg/dL [facility] Comment:Serum/plasma ethanol results are to be used formedical/treatment purposes only. 09/06/2025 12:4 6 AM EDT 09/06/2025 12:51 AM EDT Generic External Data Provider LAB BLOOD ORDERAB LES Final Result Performing Organization Address [facility] de Phone Number [facility] [address] [place] [phone] * (ABNORMAL) Comprehensive Metabolic Panel (09/06/2025 12:46 AM EDT) [facility] Sodium 139 135 - 145 mmol/L [facility] Potassium 3.8 3.3 - 5.1 mmol/L [facility] Chloride 109(H) 96 - 108 mmol/L [facility] Carbon Dioxide 19(L) 22 - 29 mmol/L [facility] Anion Gap 15 12 - 20 [facility] Urea Nitrogen (BUN) 17(H) 9 - 16 mg/dL [facility] Creatinine, Serum 1.03 0.5 - 1.4 mg/dL [facility] Creatinine Clr Calc Pharmacy 66.8 [facility] Comment:eGFR (calculated fro m the MDRD study equation) and eCrCl(calculated from the Cockcroft-Gault equation) are based ondifferent parameters and may not yield comparable results.If eCrCl result is absurd, please check patient'sheight/weight. Estimated Glomerular Filt Rate >60 [facility] Comment:Chronic Kidney Disea se: Estimated GFR < 60 mL/min/1.07g4Yfojfv Kidney Disease: Estimated GFR < 15 mL/min/1.73m2 Glucose 92 60 - 115 mg/dL [facility] Calcium 8.5 8.4 - 10.2 mg/dL [facility] Bilirubin, Total 0.4 0.0 - 1.0 mg/dL [facility] Aspartate Amino Transferase 36 5 - 37 U/L [facility] Alanine Aminotransferase 9 0 - 40 U/L [facility] Total Protein 7.9 6.5 - 8.0 g/dL [facility] Albumin Level 3.4(L) 3.5 - 5.0 g/dL [facility] Alkaline Phosphatase 113 39 - 117 U/L [facility] 09/06/2025 12:4 6 AM EDT 09/06/2025 12:51 AM EDT us Generic External Data Provider LAB BLOOD ORDERAB LES Final Result [facility] [address] [place] [phone] * HOLD LT BLUE - POSSIBLE COAG (09/06/2025 12:46 AM EDT) Hold Lt Blue - Possible Coag SEE NOTE [facility] Comment:Specimen will be hel d untested for 4 hours. Call Hematologyif testing is desired. 09/06/2025 12:4 6 AM EDT 09/06/2025 12:54 AM EDT us Generic External Data Provider LAB BLOOD ORDERAB LES Final Result [facility] [address] [place] [address] [phone] documented in this encounter Visit Diagnoses Not on filedocumented in this encounter
--- OUTSIDE RECORDS SUMMARY | 2025-09-11 21:52 | XMS_ITS | Encounter Summary ---
Author Organization [facility] Address [address] [facility] [address] [place] [phone] Phone Care Team Providers Care Extractor Puller Name Role Phone Elbert Hayward MD Primary Care Provider [facility], [facility] Primary Care Provider Pcp, Unknown Unavailable Unavailable Encounter Details Date Type Department Care Team (Late st Contact Info) Description 10/06/2023 Procedure Pass [facility], Ct Scan - [address] [address] Social History Tobacco Use Types Packs/Day Years [...] on filedocumented in this encounter Care Teams Extractor Puller Relationship Specialty Start Date End Date Elbert Hayward MD PCP - General 05/13/14 10/06/23 [facility], MD [address] [place] [address] PCP - General 10/07/23 Pcp, Unknown 10/07/23 documented as of this encounter Additional Source Comments The information contained in this document represents components of the legal health record. It is not the complete legal health record.[facility]
--- OUTSIDE RECORDS SUMMARY | 2025-09-11 21:52 | XMS_ITS | Encounter Summary ---
Author Organization [facility] Address [address] [facility] [address] [place] [phone] Phone Care Team Providers Care Filler Block Inserter Remover Name Role Phone [facility], [facility] Primary Care Provider Pcp, Unknown Unavailable Unavailable Encounter Details Date Type Department Care Team ([facility] st Contact Info) Description 10/31/2023 Procedure Pass [facility] Admitting Dept Virtual Department [address] [place] [phone] Social History Tobacco Use Types Packs/Day Years [...] on filedocumented in this encounter Care Teams Filler Block Inserter Remover Relationship Specialty Start Date End Date [facility] [address] [place] [address] PCP - General 10/07/23 Pcp, Unknown 10/07/23 documented as of this encounter Additional Source Comments The information contained in this document represents components of the legal health record. It is not the complete legal health record.[facility]
--- OUTSIDE RECORDS SUMMARY | 2025-09-11 21:52 | XMS_ITS | Encounter Summary ---
Author Organization [employer] Address [address] [place] [address] [place] [address] Care Team Providers Care Cigarette And Filter Chief Inspector Name Role Phone Charbel Calles RN Unavailable [phone] Conor Vidal Unavailable Encounter Details Date Type Department Care Team (Latest Contact Info) Description 09/08/2025 Results Follow-Up [facility] Information Management [address] [place] [address] External Provider, [facility] CTA Chest PE Protocal, XR Chest 1 [...] on filedocumented in this encounter Care Teams Cigarette And Filter Chief Inspector Relationship Specialty Start Date End Date Charbel Calles RN [address] [place] [phone] Registered Nurse Family Medicine 09/11/25 Conor Vidal 09/11/25 documented as of this encounter
--- OUTSIDE RECORDS SUMMARY | 2025-09-11 21:53 | XMS_ITS ---
Author Organization [employer] Address [address] [place] [address] [address] [place] [address] Care Team Providers Care Machine Zipper Trimmer Name Role Phone Charbel Calles RN Unavailable [phone] Conor Vidal Unavailable CM Complex Status:Outreach In Progress (Enrolling) Start date:09/11/2025 Enrollment reason:ADT Feed Overview ED- Pt went to [facility] ED on 09/10/25. Case Team Name Relationship Phone Charbel Calles RN(Responsible Staff) Registered [facility] [place] [place] [phone] Continued Care and Services Coordination
--- OUTSIDE RECORDS SUMMARY | 2025-09-11 21:53 | XMS_ITS | Clinical Summary ---
Author Organization [facility] Address [address] [place] [address] Phone Care Team Providers Care Kitchen Help Handyman Name Role Phone [facility], Facility Primary Care Provider Pcp, Unknown Unavailable [...] magnesia). Active monobasic and dibasic sodium phosphates (54510 ENEMA) 19-7 gram/[address] 1 [...] Patient presented with altered mental status from [facility] where he appeared more lethargic than [...] EST) SODIUM 137 133 - 146 mmol/L [facility] POTASSIUM 4.5 3.3 - 5.1 mmol/L [facility] CHLORIDE 105 96 - 108 mmol/L [facility] CO2 22 21 - 35 mmol/L [facility] BUN 14 6 - 19 mg/dL [facility] CREATININE 0.80 0.5 - 1.5 mg/dL [facility] GLUCOSE 104(H) 70 - 99 mg/dL [facility] ALBUMIN 4.1 3.9 - 4.8 g/dL [facility] TOTAL PROTEIN 8.1(H) 6.5 - 8.0 g/dL [facility] CALCIUM 10.4(H) 8.4 - 10.3 mg/dL [facility] ALKALINE PHOSPHATASE 118(H) 39 - 117 U/L [facility] TOTAL BILIRUBIN 0.6 0.0 - 1.2 mg/dL [facility] AST 25 0 - 37 U/L [facility] ALT 7 0 - 40 U/L [facility] GLOBULIN 4.0 1 - 4.8 g/dL [facility] EGFR 105 >59 mL/min/1.7 3m2 [facility] Comment:Estimated glomerular filtration rate calculated using the CKD-EPI refit equation. ANION GAP 15 10 - 20 mmol/L [facility] Blood 01/04/2024 9:22 AM EST 01/04/2024 9:53 AM EST Missy WALLACE LAB BLOOD ORDERABLES Fin al Result Performing Organization Address City/[facility]/ZIP Co de Phone Number [address] [address] * Hepatitis C antibody, qualitative (01/04/2024 9:22 AM EST) HCV NON-REACTIV E NON-REACTI VE [facility] Blood 01/04/2024 9:22 AM EST 01/04/2024 9:53 AM EST Missy WALLACE LAB BLOOD ORDERABLES Fin al Result Performing Organization Address [facility] Co de Phone Number [address] [address] from Last 3 Months or Most Recently Relevant to Health Maintenance [place] [address] [place] [address] C3 ACO [facility] C3 ACO C3 [employer] C3 [facility] C3 ACO [facility] [place] [address] [facility] C3 ACO Advance Directives For more information, please contact: [phone] (9AM - 5PM [facility], Monday-Monday) Documents on File Type Date Recorded Patient Lpn Private Duty Expl anation Healthcare Proxy 10/09/2023 10:49 AM [...] Agents on File Name Relationship Healthcare Agent Gawv danyell Communication Guillermo Lobato .Primary Health Care Agent (Proxy form on file) Care Teams Kitchen Help Handyman Relationship Specialty Start Date End Date [facility] [address] [place] [address] PCP - General 10/07/23 Pcp, Unknown 10/07/23 Additional Source Comments The information contained in this document represents components of the legal health record. It is not the complete legal health record.[facility]
--- OUTSIDE RECORDS SUMMARY | 2025-09-11 21:53 | XMS_ITS | Encounter Summary ---
Author Organization [employer] Address [address] [place] [address] [place] [address] Care Team Providers Care Silo Man Name Role Phone Charbel Calles RN Unavailable [phone] Conor Vidal Unavailable Reason for Visit * Reason Comments Care Coordination C3CM/W Conor Pierre bere, Initial outreach call_lvm Encounter Details Date Type Department Care Team (Latest Contact Info) Description 09/11/2025 Patient Outreach [facility] [address] [place] [address] Conor Vidal Care Coordination (C3CM/LORETAW Conor Vidal, Initial outreach call_lvm ) Social History Tobacco Use Types Packs/Day Years Used Date Smoking Tobacco: Never Assessed Sex and Gender Information Value Date Recorded Sex Assigned at Male 11/23/2022 11:29 AM EST Legal Sex Male 11:26 AM EST Gender Identity Male 11/23/2022 11:29 AM EST Sexual Orientation Straight 01/11/2024 8: 14 AM EST documented as of this encounter Progress Notes * Conor Vidal - 09/11/2025 2:32 PM EDT CHW Conor Vidal, placed outbound call to patient to introduce C3 Complex Care Program. No answerat this time. CHW LVM introducing herself from [facility] CM Department with CHW's name,department and direct contact number requesting call back. Will re-attempt to contact within 2 days. and address not confirmed. documented in this encounter Plan of Treatment Not on file documented as of this encounter Visit Diagnoses Not on filedocumented in this encounter Care Teams Silo Man Relationship Specialty Start Date End Date Charbel Calles RN [address] [place] [address] Registered Nurse Family Medicine 09/11/25 Conor Vidal 09/11/25 documented as of this encounter
--- OUTSIDE RECORDS SUMMARY | 2025-09-11 21:53 | XMS_ITS | Encounter Summary ---
Author Organization [employer] Address [address] [place] [address] 7 [place] [address] Care Team Providers Care Speech Lang Path Therapist Name Role Phone Charbel Calles RN Unavailable [phone] Conor Vidal Unavailable Encounter Details Date Type Department Care Team ([facility] st Contact Info) Description 09/11/2025 Patient Outreach [facility] [address] [place], [place] [phone] Edith Zuniga RN Social History Tobacco Use Types Packs/Day Years Used Date Smoking Tobacco: Never Assessed Sex and Gender Information Value Date Recorded Sex Assigned at Male 11/23/2022 11:29 AM EST Legal Sex Male 11:26 AM EST Gender Identity Male 11/23/2022 11:29 AM EST Sexual Orientation Straight 01/11/2024 8: 14 AM EST documented as of this encounter Progress Notes * Edith Zuniga RN - 09/11/2025 2:43 PM EDT Transition of Care Note Charbel Delgado is going through a recent transition of care. Emergency Room Visit Date: 09/10/25 Facility: [facility] Diagnosis: ETOH Disposition: Discharged home Discharge summary in the chart: Yes Please contact for a telehealth RN visit documented in this encounter Plan of Treatment Not on file documented as of this encounter Visit Diagnoses Not on filedocumented in this encounter Care Teams Speech Lang Path Therapist Relationship Specialty Start Date End Date Charbel Calles RN [address] [place] [address] Registered Nurse Family Medicine 09/11/25 Conor Vidal 09/11/25 documented as of this encounter
--- OUTSIDE RECORDS SUMMARY | 2025-09-11 21:53 | XMS_ITS | Encounter Summary ---
Author Organization [employer] Address [address] [place] [address] 7 [place] [address] Care Team Providers Care Retail Merchandiser Technician Name Role Phone Charbel Calles RN Unavailable [phone] Conor Vidal Unavailable Reason for Visit * Reason Comments Care Coordination C3CM- chart review Encounter Details Date Type Department Care Team (Latest Contact Info) Description 09/11/[address] [facility] PEDS [address] [place], [place] [phone] Charbel Calles RN [address] [place] [address] Care Coordination (C3CM- chart review) Social History Tobacco Use Types Packs/Day Years Used Date Smoking Tobacco: Never Assessed Sex and Gender Information Value Date Recorded Sex Assigned at Male 11/23/2022 11:29 AM EST Legal Sex Male 11:26 AM EST Gender Identity Male 11/23/2022 11:29 AM EST Sexual Orientation Straight 01/11/2024 8: 14 AM EST documented as of this encounter Progress Notes * Charbel Calles RN - 09/11/2025 8:08 AM EDT WEN Calles RN, performed chart review, in anticipation of initial assessment with patient, aspatient has stratified for C3 Adult Complex Care through the ADT feed. History significant for chronic systolic heart failure, alcoholic cirrhosis, depression with anxiety, hypertension. Specialists i nclude--. ED visits within the last 12 months include C 09/10/25, C 09/03- 09/05/25, [facility] [place] [facility] [place], [facility] [place], [facility] [place], etc. Last appointment in PCP office on 05/08/25. Need LEARNING ENGINEER appointment. documented in this encounter Plan of Treatment Not on file documented as of this encounter Visit Diagnoses Not on filedocumented in this encounter Care Teams Retail Merchandiser Technician Relationship Specialty Start Date End Date Charbel Calles RN [address] [place] [address] Registered Nurse Family Medicine 09/11/25 Conor Vidal 09/11/25 documented as of this encounter
--- OUTSIDE RECORDS SUMMARY | 2025-09-11 21:53 | XMS_ITS | Encounter Summary ---
Author Organization [employer] Address [address] [place] [address] [place] [address] Care Team Providers Care Net Mvc Developer Name Role Phone Charbel Calles RN Unavailable [phone] Conor Vidal Unavailable Encounter Details Date Type Department Care Team (Late st Contact Info) Description 09/03/2025 Results Follow-Up [facility] Information Management [address] [place] [address] Provider, Generic External Data XR Chest 2 [...] on filedocumented in this encounter Care Teams Net Mvc Developer Relationship Specialty Start Date End Date Charbel Calles RN [address] [place] [address] Registered Nurse Family Medicine 09/11/25 Conor Vidal 09/11/25 documented as of this encounter
--- OUTSIDE RECORDS SUMMARY | 2025-09-11 21:53 | XMS_ITS | Encounter Summary ---
Author Organization [employer] Address [address] [place] [address] 7 [place] [address] Care Team Providers Care General Teller Name Role Phone Charbel Calles RN Unavailable [phone] Conor Vidal Unavailable Encounter Details Date Type Department Care Team (Late st Contact Info) Description 09/11/2025 Patient Outreach [facility] [address] [place] [address] Jodi Cerda RN Social History Tobacco Use Types Packs/Day [...] on filedocumented in this encounter Care Teams General Teller Relationship Specialty Start Date End Date Charbel Calles, RN [address] [place] [address] Registered Nurse Family Medicine 09/11/25 Conor Vidal 09/11/25 documented as of this encounter
--- OUTSIDE RECORDS SUMMARY | 2025-09-11 21:53 | XMS_ITS ---
Author Organization [employer] Address [address] [place] [address] 7 [place] [address] Care Team Providers Care Mold Yarn Supervisor Name Role Phone Charbel Calles RN Unavailable [phone] Conor Vidal Unavailable CHW Complex Status:Outreach In Progress (Enrolling) Start date:09/11/2025 Enrollment reason:ADT Feed Overview ED- Pt went to [facility] ED on 09/10/25. Case Team Name Relationship Phone Conor Vidal(Responsible Staff) [phone] Continued Care and Services Coordination
--- OUTSIDE RECORDS SUMMARY | 2025-09-11 21:53 | XMS_ITS | Encounter Summary ---
Author Organization [facility] Address [address] [facility] [address] [place] [address] Phone Care Team Providers Care Welding Production Supervisor Name Role Phone [facility], [facility] Primary Care Provider Pcp, Unknown Unavailable Unavailable Encounter Details Date Type Department Care Team (Late st Contact Info) Description 01/04/2024 Transcribe Orders [facility] Laboratory [address] [place] [address] Missy Miranda PA [address] [place] [address] [email or web address] Need for hepatitis C screening test (Primary [...] EST) FERRITIN 168 30 - 400 ug/L [facility] Blood 01/04/2024 9:22 AM EST 01/04/2024 9:53 AM EST Missy WALLACE LAB BLOOD ORDERABLES Fin al Result Performing Organization Address City/[facility] Co de Phone Number [address] [address] * (ABNORMAL) PT-INR (01/04/2024 9:22 AM EST) [facility] PT 15.9(H) 10.2 - 12.9 sec [facility] INR 1.4(H) 0.9 - 1.1 [facility] Comment:Therapeutic range fo r oral Vitamin K antagonists: 2.0-3.5 Blood 01/04/2024 9:22 AM EST 01/04/2024 9:53 AM EST Missy WALLACE LAB BLOOD ORDERABLES Fin al Result Performing Organization Address City/[facility]/ZIP Co de Phone Number [address] [address] * Iron and iron binding capacity (01/04/2024 9:22 AM EST) IRON 81 45 - 160 ug/dL [facility] IRON BINDING CAPACITY 326 228 - 428 ug/dL [facility] TRANSFERRIN SATURAT. 25 20 - 55 % [facility] Blood 01/04/2024 9:22 AM EST 01/04/2024 9:53 AM EST Missy WALLACE LAB BLOOD ORDERABLES Fin al Result Performing Organization Address [facility] de Phone Number [address] [address] * Lipase (01/04/2024 9:22 AM EST) LIPASE 35 16 - 63 U/L [facility] Blood 01/04/2024 9:22 AM EST 01/04/2024 9:53 AM EST Missy WALLACE LAB BLOOD ORDERABLES Fin al Result Performing Organization Address [facility] de Phone Number [address] [address] * Hepatitis C antibody, qualitative (01/04/2024 9:22 AM EST) HCV NON-REACTIV E NON-REACTI VE [facility] Blood 01/04/2024 9:22 AM EST 01/04/2024 9:53 AM EST Missy WALLACE LAB BLOOD ORDERABLES Fin al Result Performing Organization Address [facility] de Phone Number [address] [address] * Hepatitis B surface antibody (01/04/2024 9:22 AM EST) HBV SURFACE ANTIBODY Negative [facility] Comment: Unvaccinated: Negative Vaccinated: Positive Blood 01/04/2024 9:22 AM EST 01/04/2024 9:53 AM EST Missy WALLACE LAB BLOOD ORDERABLES Fin al Result Performing Organization Address City/[facility]/ZIP Co de Phone Number [address] [address] * Hepatitis B surface antigen (01/04/2024 9:22 AM EST) HBV SURFACE ANTIGEN NON-REACTI VE NON-REACTI VE [facility] Blood 01/04/2024 9:22 AM EST 01/04/2024 9:53 AM EST Missy WALLACE LAB BLOOD ORDERABLES Fin al Result Performing Organization Address [facility] Co de Phone Number [address] [address] * Hepatitis B core antibody, total (01/04/2024 9:22 AM EST) HEP B CORE AB, TOT NON-REACTI VE NON-REACTI VE [facility] Blood 01/04/2024 9:22 AM EST 01/04/2024 9:53 AM EST Missy WALLACE LAB BLOOD ORDERABLES Fin al Result Performing Organization Address [facility] Co de Phone Number [address] [address] * HEPATITIS A ANTIBODY, TOTAL (01/04/2024 9:22 AM EST) HAV TOTAL AB NON-REACTI VE NON-REACTI VE [facility] Blood 01/04/2024 9:2 2 AM EST 01/04/2024 9:53 AM EST Missy WALLACE LAB BLOOD ORDERABLES Fin al Result Performing Organization Address City/[facility] Co de Phone Number [address] [address] * (ABNORMAL) GGT (Gamma glutamyl transferase) (01/04/2024 9:22 AM EST) GGT 54(H) 11 - 51 U/L [facility] Blood 01/04/2024 9:22 AM EST 01/04/2024 9:53 AM EST Missy WALLACE LAB BLOOD ORDERABLES Fin al Result [address] [address] * C-Reactive Protein (01/04/2024 9:22 AM EST) Pathologist [facility] C REACTIVE PROTEIN <3.0 0.0 - 4.0 mg/L [facility] Blood 01/04/2024 9:22 AM EST 01/04/2024 9:53 AM EST Missy WALLACE LAB BLOOD ORDERABLES Fin al Result Performing Organization Address City/[facility] Co de Phone Number [address] [address] * (ABNORMAL) Comprehensive metabolic panel (01/04/2024 9:22 AM EST) Pathologist [facility] SODIUM 137 133 - 146 mmol/L [facility] POTASSIUM 4.5 3.3 - 5.1 mmol/L [facility] CHLORIDE 105 96 - 108 mmol/L [facility] CO2 22 21 - 35 mmol/L [facility] BUN 14 6 - 19 mg/dL [facility] CREATININE 0.80 0.5 - 1.5 mg/dL [facility] GLUCOSE 104(H) 70 - 99 mg/dL [facility] ALBUMIN 4.1 3.9 - 4.8 g/dL [facility] TOTAL PROTEIN 8.1(H) 6.5 - 8.0 g/dL [facility] CALCIUM 10.4(H) 8.4 - 10.3 mg/dL [facility] ALKALINE PHOSPHATASE 118(H) 39 - 117 U/L [facility] TOTAL BILIRUBIN 0.6 0.0 - 1.2 mg/dL [facility] AST 25 0 - 37 U/L [facility] ALT 7 0 - 40 U/L [facility] GLOBULIN 4.0 1 - 4.8 g/dL [facility] EGFR 105 >59 mL/min/1.7 3m2 [facility] Comment:Estimated glomerular filtration rate calculated using the CKD-EPI refit equation. ANION GAP 15 10 - 20 mmol/L [facility] Blood 01/04/2024 9:22 AM EST 01/04/2024 9:53 AM EST us Missy WALLACE LAB BLOOD ORDERABLES Fin al Result Performing Organization Address City/State/[facility] Co de Phone Number [address] [address] * (ABNORMAL) CBC and differential (01/04/2024 9:22 AM EST) WBC 3.17(L) 4.00 - 11.00 K/uL [facility] RBC 3.41(L) 4.23 - 5.82 M/uL [facility] HGB 10.7(L) 13.4 - 17.5 g/dL [facility] HCT 33.8(L) 37.0 - 51.0 % [facility] PLT 64(L) 140 - 430 K/uL [facility] Comment:Consistent with prev ious result. MCV 99.1(H) 78.0 - 97.0 fL [facility] MCH 31.4 25.0 - 33.0 pg [facility] MCHC 31.7(L) 32.0 - 36.0 g/dL [facility] RDW 13.0 11.0 - 15.0 % [facility] MPV 13.2(H) 8.4 - 12.8 fl [facility] DIFF METHOD Auto [facility] NEUTS 57.2 43.0 - 75.0 % [facility] LYMPHS 24.9 18.2 - 47.4 % [facility] MONOS 12.0(H) 4.00 - 11.00 % [facility] EOS 4.7 0.0 - 8.0 % [facility] BASOS 0.9 0.0 - 2.0 % [facility] Granulocytes, immature (%) 0.3 0.0 - 0.9 % [facility] ABSOLUTE NEUTS 1.81 1.80 - 7.70 K/uL [facility] ABSOLUTE LYMPHS 0.79(L) 1.00 - 3.10 K/uL [facility] ABSOLUTE MONOS 0.38 0.20 - 0.80 K/uL [facility] ABSOLUTE EOS 0.15 0.00 - 0.80 K/uL [facility] ABSOLUTE BASOS 0.03 0.00 - 0.09 K/uL [facility] Granulocytes, immature 0.01 0.00 - 0.05 K/uL [facility] Blood 01/04/2024 9:22 AM EST 01/04/2024 9:53 AM EST [facility] LAB BLOOD ORDERABLES Fin al Result [address] [address] * (ABNORMAL) Immunoglobulin A (01/04/2024 9:22 AM EST) Pathologist [facility] IgA 436(H) 70 - 400 mg/dL [facility] Blood 01/04/2024 9:22 AM EST 01/04/2024 9:53 AM EST [facility] Nathaly Miranda [place] LAB BLOOD ORDERABLES Fin al Result [address] [address] * Tissue transglutaminase IgA (01/04/2024 9:22 AM EST) TTG IGA ANTIBODY 1.9 <4.0 (Negative) U/mL [facility]/PATH [address] Blood 01/04/2024 9:22 AM EST 01/04/2024 9:53 AM EST Missy WALLACE LAB BLOOD ORDERABLES Fin al Result [facility] [address] [place] [address] * Smooth Muscle Antibody (01/04/2024 9:22 AM EST) SMOOTH MUSCLE AB POSITIVE AT 1:20 [facility] Comment: Performing Physician, Max Jimenez M.D., [id number] Normal: Negative at 1:20 Blood 01/04/2024 9:22 AM EST 01/04/2024 9:53 AM EST Missy WALLACE LAB BLOOD ORDERABLES Fin al Result Performing Organization Address [facility] Co de Phone Number [address] [address] * Ceruloplasmin (01/04/2024 9:22 AM EST) CERULOPLASMIN 31 20 - 60 mg/dL [facility] Blood 01/04/2024 9:22 AM EST 01/04/2024 9:53 AM EST Missy WALLACE LAB BLOOD ORDERABLES Fin al Result Performing Organization Address [facility] Co de Phone Number [address] [address] * (ABNORMAL) Antinuclear antibody (JERMAIN) (01/04/2024 9:22 AM EST) JERMAIN SCREEN ON HEP 2 Positive(A ) Negative [facility] Comment:An JERMAIN Titer has bee n reflexed. The results will follow. Blood 01/04/2024 9:22 AM EST 01/04/2024 9:53 AM EST Missy WALLACE LAB BLOOD ORDERABLES Fin al Result Performing Organization Address City/[facility]/ZIP Co de Phone Number [place] [address] [address] * Anti-Mitochondrial Antibody (AMA) (01/04/2024 9:22 AM EST) MITOCHONDRIAL AB NEGATIVE AT 1:20 [facility] Comment: Performing Physician, Max Jimenez M.D., [id number] Normal: Negative at 1:20 Blood 01/04/2024 9:22 AM EST 01/04/2024 9:53 AM EST Missy WALLACE LAB BLOOD ORDERABLES Fin al Result [address] [address] * Amylase (01/04/2024 9:22 AM EST) Pathologist [facility] AMYLASE 86 28 - 100 U/L [facility] Blood 01/04/2024 9:22 AM EST 01/04/2024 9:53 AM EST Missy WALLACE LAB BLOOD ORDERABLES Fin al Result Performing Organization Address City/[facility]/ZIP Co de Phone Number [address] [address] * AFP (non-maternal specimens) (01/04/2024 9:22 AM EST) Pathologist [facility] AFP (NON-MATERNAL) 4.7 <7.9 ng/mL [facility] Comment: Test Methodology Filipe [id number] Patient results determined by assays using different manufacturers or methods may not be comparable. Blood 01/04/2024 9:22 AM EST 01/04/2024 9:53 AM EST Missy WALLACE LAB BLOOD ORDERABLES Fin al Result Performing Organization Address City/[facility]/ZIP Co de Phone Number [address] [address] * Lfyhm-[id number] phenotyping (01/04/2024 9:22 AM EST) ALPHA 1 ANTITRYPSIN 173 100 - 190 mg/dL [facility] MED/PATH [address] Comment: (NOTE) ADDITIONAL INFORMATION Method: Nephelometry A1A PHENOTYPE MM bands [facility] MED/PATH [address] Comment: (NOTE) A single M isoform is detected. In the context of a normal xmxsf-3-ogjzlgqspnt concentration, this is consistent with an MM phenotype. ADDITIONAL INFORMATION Method: Isoelectric Focusing, This assay identifies the phenotype of the circulating xoqis-8-zfqvjaoenut (A1A) protein. If the patient is on replacement therapy or has been recently transfused, the phenotype will detect patient and replacement or transfused plasma A1A protein. This test also cannot detect a null allele which could be responsible for an A1A deficiency. Blood 01/04/2024 9:22 AM EST 01/04/2024 9:53 AM EST Missy WALLACE LAB BLOOD ORDERABLES Fin al Result [facility] MED/PATH [address] [place] [address] documented in this encounter Visit Diagnoses Diagnosis Need for hepatitis C screening test- Primary Special screening examination for other specified viral diseases Hepatic cirrhosis, unspecified hepatic cirrhosis type, unspecified whether ascites present Esophageal varices in alcoholic cirrhosis Esophageal varices without mention of bleeding documented in this encounter Care Teams Welding Production Supervisor Relationship Specialty Start Date End Date [facility] [address] [place] [address] PCP - General 10/07/23 Pcp, Unknown 10/07/23 documented as of this encounter Additional Source Comments The information contained in this document represents components of the legal health record. It is not the complete legal health record.[facility]
--- OUTSIDE RECORDS SUMMARY | 2025-09-11 21:53 | XMS_ITS | Clinical Summary ---
Author Organization [employer] Address [address] [place] [address] 7[address] [place] [address] Care Team Providers Care Assembly Loader Name Role Phone Charbel Calles RN Unavailable [phone] Conor Vidal Unavailable Allergies No known active allergies Medications [...] Patient presented with altered mental status from [facility] where he appeared more lethargic than [...] Encounters Date Type Department Care Team Description 09/11/2025 Patient Outreach [facility] [address] [place] [address] Edith Zuniga, RN 09/11/2025 Patient Outreach [address] [address] Conor Vidal Care Coordination (C3/W Conor Vidal, Initial outreach call_lvm ) 09/11/2025 Patient Outreach [address] [address] Conor Vidal Care Coordination (C3/W Conor Vidal, Chart review ) 09/11/2025 Patient Outreach [facility] [address] [place], [place] [phone] Charbel Calles, RN Care Coordination (C3CM- chart review) 09/11/2025 Patient Outreach [facility] [address] [place] [address] Jodi Cerda, RN 09/08/2025 Results Follow-Up [facility] Information Management [address] [place] [address] External Provider, [facility] CTA Chest PE Protocal, XR Chest 1 View 09/06/2025 Orders Only [facility] External Provider, [facility] 09/03/2025 Results [facility] Information Management [address] [place] [address] Provider, Generic External Data XR Chest 2 Views 09/03/2025 Orders Only [facility] EXTERNAL DATA DEPARTMENT Provider, Generic External Data 08/21/2025 Orders Only GENERIC EXTERNAL DATA DEPARTMENT Provider, Generic External Data 08/14/2025 Orders Only [facility] External Provider, [facility] 08/04/2025 Patient Outreach [facility] [address] [place] [address] Conor Vidal Care Coordination ([facility]/Liz Vidal, TC #6 outreach_closed ) 07/21/2025 Patient Outreach [facility] [address] [place] [address] Conor Vidal 07/08/2025 Patient Outreach [facility] [address] [place] [address] Missy Milner RN 07/07/2025 Telephone [facility] [address] [place] [address] Mihaela Zhong RN 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 07/06/2025 Orders Only GENERIC EXTERNAL DATA DEPARTMENT Provider, Generic External Data 07/02/2025 Orders Only [facility] External Provider, [facility] 07/01/2025 Patient Outreach [address] [address] Missy Milner, LAURA Care Coordination ([facility]/Liz Vidal, TC #5 initial outreach attempt_lvm) 06/19/2025 Results Follow-Up [facility] Information Management [address] [place] [address] Provider, Generic External Data XR Chest 2 Views 06/19/2025 Results Follow-Up [facility] Information [facility] [address] [place] [address] External Provider, [facility] CT Chest w/ Contrast 06/19/2025 Orders Only [facility] External Provider, [facility] 06/18/2025 Orders Only GENERIC EXTERNAL DATA DEPARTMENT Provider, Generic External Data 06/11/2025 Travel from Last 3 Months Immunizations Immunization Administration [...] 09/06/2025 8:48 AM EDT COVID-19 ID NOW (YARBROUGH) Routine 09/06/2025 8:42 AM EDT INFLUENZA A [...] METABOLIC PANEL Routine 06/18/2025 9:19 PM EDT from Last 3 Months Results * CTA Chest PE Protocal (09/06/2025 12:04 PM EDT) Anatomical Region Laterality Modality Body, Chest Computed Tomogra phy 09/06/2025 12:0 4 PM EDT Narrative 09/06/2025 12:06 PM EDT [place] [address] CT Scan Report Signed Patient: Charbel Delgado MR#: [id number] : 1970 Acct:[id number] Age/Sex: 55 / M ADM Date: 09/06/25 Loc: [facility] Attending Dr: Ordering Physician: Abril Sam Date of Service: 09/06/25 Procedure(s): CT angio chest PE protocol Accession Number(s): [id number] cc: Abril Sam; [facility] Report Number: [id number]: Total DLP = 188.00 mGy-cm Reason for [...] MD in OV> 09/06/251204 DD/ 03 TD/TT: 09/06/251203 Pan Operator: Procedure Note Donotuseinterpreter, Image - 09/06/[address] [place] [address] [address] Scan Report Signed Patient: Isaias Delgado#: [id number] : 1970Acct:[id number] Age/Sex: 55 / MADM Date: 09/06/25 Loc: HO.ED Attending Dr: Ordering Physician: Abril Sam Date of Service: 09/06/25 Procedure(s): CT angio chest PE protocol Accession Number(s): [id number] cc: Abril Sam; [facility] Report Number: [id number]: Total DLP = 188.00 mGy-cm Reason for [...] OV> 09/06/251204 DD/ 03 TD/TT: 09/06/25 120 Pan Operator: [facility] External Provider IMG CT PROCEDURES Edited Result - Final * Blood Culture (Second) (09/06/2025 8:50 AM EDT) Blood Venous blood specimen / Unknown 09/06/2025 8:50 AM EDT 09/06/2025 8:54 AM EDT Comment:Blood Narrative [facility] - 09/11/2025 10:54 AM EDT Blood Culture (Second) No growth after 5 days. Specimen Source: Blood Generic External Data Provider LAB MICROBIOLOGY - GENERAL ORDERABLES Final Result Performing Organization Address [facility] Co de Phone Number [facility] [address] [place] [address] [phone] * (ABNORMAL) Sed Rate by Modified Mattehwergren (09/06/2025 8:50 AM EDT) Erythrocyte Sedimentation Rate 46(H) 0 - 15 MM/HR [facility] Comment:Patients with polycy themia and many hemoglobin abnormalitiesmay have depressed sed rates whereas patients with anemiamay have elevated sed rates. 09/06/2025 8:50 AM EDT 09/06/2025 8:54 AM EDT Generic External Data Provider LAB BLOOD ORDERAB LES Final Result Performing Organization Address [facility] Co de Phone Number [facility] [address] [place] [address] [phone] * (ABNORMAL) C-reactive Protein (09/06/2025 8:50 AM EDT) Only the most recent of2 resultswithin the time period is included. [facility] C Reactive Protein 0.57(H) < or = 0.50 mg/dL [facility] 09/06/2025 8:50 AM EDT 09/06/2025 8:54 AM EDT us Generic External Data Provider LAB BLOOD ORDERAB LES Final Result Performing Organization Address [facility] Co de Phone Number [facility] [address] [place] [phone] * (ABNORMAL) VENOUS BLOOD GAS (09/06/2025 8:48 AM EDT) [facility] VBG pH 7.43 7.32 - 7.43 [facility] Comment:METER #: [id number] additional_comment: Cb gentilj VBG PCO2 29 mmHg [facility] Comment:METER #: [id number] additional_comment: Cb gentilj VBG PO2 71 mmHg [facility] Comment:METER #: [id number] additional_comment: Cb gentilj VBG Base Excess -3.3 mmol/L [facility] Comment:METER #: [id number] additional_comment: Cb gentilj VBG HCO3 20(L) 22 - 26 mmol/L [facility] Comment:METER #: [id number] additional_comment: Cb gentilj O2 Sat, Demetrio 92.0 % [facility] Comment:METER #: [id number] additional_comment: Cb gentilj 09/06/2025 8:48 AM EDT 09/06/2025 8:51 AM EDT us Generic External Data Provider LAB BLOOD ORDERAB LES Final Result Performing Organization Address [facility] Co de Phone Number [facility] [address] [place] [phone] * Influenza A B2 ID NOW (Yarbrough) (09/06/2025 8:42 AM EDT) [facility] IDNOW SERIAL# [id number] [facility] Influenza A Negative Negative [facility] Influenza B2 Negative Negative [facility] Influenza A B2 Note See Note [facility] Comment:The Yarbrough ID NOW In [...] GENERAL ORDERABLES Final Result Performing Organization Address City/State/[facility] Co de Phone Number [facility] [address] [place] [phone] * COVID-19 ID NOW (YARBROUGH) (09/06/2025 8:42 AM EDT) IDNOW SERIAL# [id number] [facility] COVID-19 TEST Negative Negative [facility] COVID-19 NOTE See Note [facility] Comment: Results are for the identification of SARS-CoV2 RNA. TheSARS-CoV2 RNA is generally detectable in respiratory samplesduring the acute phase of infection. Positive results areindicative of the presence of SARS-CoV-2 RNA; clinicalcorrelation with patient history and other diagnosticinformation is necessary to determine patient infectionstatus. Positive results do not rule out bacterial infectionor co- infection with other viruses.Testing facilities within the [facility] and itsterritories are required to report all positive results [...] use by authorized laboratories.Testing performed on the [employer] ID NOW utilizing NAAT. 09/06/2025 8:42 AM EDT 09/06/2025 8:46 AM EDT Generic External Data Provider LAB MOLECULAR YAO GNOSTICS ORDERABLES Final Result Performing Organization Address [facility]/ZIP Co de Phone Number [facility] [address] [place] [phone] * Blood Culture (First) (09/06/2025 8:41 AM EDT) Blood Venous blood specimen / Unknown 09/06/2025 8:41 AM EDT 09/06/2025 8:46 AM EDT Comment:Blood Narrative [facility] - 09/11/2025 10:47 AM EDT Blood Culture (First) No growth after 5 days. Specimen Source: Blood Generic External Data Provider LAB MICROBIOLOGY - GENERAL ORDERABLES Final Result Performing Organization Address [facility]/ZIP Co de Phone Number [facility] [address] [place] [phone] * Urinalysis, Complete, with Reflex to Culture (09/06/2025 8:41 AM EDT) Color Urine Yellow [facility] Appearance Urine Clear [facility] PH 6.5 5.0 - 9.0 [facility] Glucose Urine UA Negative Negative mg/dL [facility] Urine Blood Negative Negative [facility] Specific [place] - Urine 1.010 1.005 - 1.025 [facility] Urine Protein Negative Neg-Trace mg/dL [facility] Urine Ketones Negative Negative mg/dL [facility] Nitrite Urine Negative Negative [facility] Leukocyte Esterase Urine Negative Negative [facility] RBC Urine 0-2 0 - 2 /HPF [facility] Urine WBC 0-5 0 - 5 /HPF [facility] Urine Squamous Epithelial Cell 0-2 0 - 2 /HPF [facility] Urine Bacteria None Seen None Seen [facility] Hyaline Casts, Urine 0-2 0 - 2 /LPF [facility] 09/06/2025 8:41 AM EDT 09/06/2025 8:46 AM EDT Narrative [facility] - 09/06/2025 8:58 AM EDT [id number], Clean Catch us Generic External Data Provider LAB URINE ORDERAB LES Final Result Performing Organization Address [facility] Co de Phone Number [facility] [address] [place] [phone] * (ABNORMAL) Lactic Acid (09/06/2025 5:29 AM EDT) Only the most recent of4 resultswithin the time period is included. Lactic Acid 2.4(HH) 0.5 - 2.0 mmol/L [facility] Comment:Critical value for t est(s):LACTIC ACID Results called toand read back by: ELIU Person calling:AMINATA Date:09/06/25 Time:0558 09/06/2025 5:29 AM EDT 09/06/2025 5:33 AM EDT us Generic External Data Provider LAB BLOOD ORDERAB LES Final Result Performing Organization Address [facility]/ZIP Co de Phone Number [facility] [address] [place] [address] [phone] * XR Chest 1 View (09/06/2025 12:54 AM EDT) Only the most recent of6 resultswithin the time period is included. Anatomical Region Laterality Modality Chest Radiographic Lamar ging 09/06/2025 12:5 4 AM EDT Narrative 09/06/2025 12:57 AM EDT [address] [address] XRay Report Signed Patient: Charbel Delgado MR#: [id number] : 1970 Acct:[id number] Age/Sex: 55 / M ADM Date: 09/06/25 Loc: HO.ED Attending Dr: Ordering Physician: David Galvez PA-C Date of Service: 09/06/25 Procedure(s): XR chest 1V Accession Number(s): [id number] cc: [facility]; David Galvez PA-C Reason for Exam: [...] MD in OV> 09/06/2555 DD/ TD/TT: 09/06/2553 Pan Operator: Procedure Note Donotuseinterpreter, Image - 09/06/[address] [address] XRay Report Signed Patient: Rod DelgadoR#: [id number] : 1970Acct:[id number] Age/Sex: 55 / MADM Date: 09/06/25 Loc: .ED Attending Dr: Ordering Physician: David Galvez PA-C Date of Service: 09/06/25 Procedure(s): XR chest 1V Accession Number(s): [id number] cc: [facility]; David Galvez PA-C Reason for Exam: [...] MD in OV> 09/06/2555 DD/ TD/TT: 09/06/2553 Pan Operator: [facility] External Provider IMG XR PROCEDURES Final Result * Slide Review (09/06/2025 12:46 AM EDT) Only the most recent of4 resultswithin the time period is included. Slide Review VERIFIED [facility] 09/06/2025 12:4 6 AM EDT 09/06/2025 12:51 AM EDT Generic External Data Provider LAB BLOOD ORDERAB LES Final Result Performing Organization Address [facility] de Phone Number [facility] [address] [place] [phone] * HOLD LT BLUE - POSSIBLE COAG (09/06/2025 12:46 AM EDT) Only the most recent of2 resultswithin the time period is included. Hold Lt Blue - Possible Coag SEE NOTE [facility] Comment:Specimen will be hel d untested for 4 hours. Call Hematologyif testing is desired. 09/06/2025 12:4 6 AM EDT 09/06/2025 12:54 AM EDT Generic External Data Provider LAB BLOOD ORDERAB LES Final Result Performing Organization Address [facility] Co de Phone Number [facility] [address] [place] [phone] * Ethanol (09/06/2025 12:46 AM EDT) Only the most recent of6 resultswithin the time period is included. ETHANOL (MG/DL) IN SER/PLAS 153 mg/dL [facility] Comment:Serum/plasma ethanol results are to be used formedical/treatment purposes only. 09/06/2025 12:4 6 AM EDT 09/06/2025 12:51 AM EDT us Generic External Data Provider LAB BLOOD ORDERAB LES Final Result Performing Organization Address [facility]/ZIP Co de Phone Number [facility] [address] [place] [phone] * NT-proBNP (09/06/2025 12:46 AM EDT) Only the most recent of3 resultswithin the time period is included. NT-proBNP 62.2 <300 pg/mL [facility] Comment:Reference Range:Age Group (years) NT-proBNP (pg/ml) InterpretationAll <300 Negative: HF unlikelyFor patients presenting to the ED with clinical suspicion ofnew onset or worsening HF, see below:18 to <50 >299.9 to <450.0 Grayzone: [id number] to 75 >299.9 to <900.0 other causes of>75 >299.9 to <1800.0 NT-proBNP udympplys84 to <50 >449.9 Positive: HF itszpm04-77 >899.9>75 >1799.9Note: Elevated NT-proBNP levels should be interpreted inthe context of other clinical information. 09/06/2025 12:4 6 AM EDT 09/06/2025 12:51 AM EDT us Generic External Data Provider LAB BLOOD ORDERAB LES Final Result Performing Organization Address City/[facility]/ZIP Co de Phone Number [facility] [address] [place] [address] [phone] * (ABNORMAL) CBC auto differential (09/06/2025 12:46 AM EDT) Only the most recent of6 resultswithin the time period is included. White Blood Count 3.9(L) 4.8 - 10.8 X10*3/uL [facility] Red Blood Count 3.33(L) 4.60 - 5.80 X10*6/uL [facility] Hemoglobin 10.1(L) 14.0 - 18.0 g/dl [facility] Hematocrit 31.6(L) 42.0 - 52.0 % [facility] Mean Corpuscular Volume 94.9 80.0 - 98.0 fL [facility] Mean Corpuscular Hemoglobin 30.3 27.0 - 33.0 pg [facility] Mean Corpuscular HGB Conc 32.0 31.0 - 36.0 g/dl [facility] Red Cell Distribution Width 16.9(H) 11.0 - 16.0 % [facility] Platelet Count 50(L) 160 - 400 X10*3/uL [facility] Neutrophils Percent Auto 65.9 45 - 73 % [facility] Imm Gran Pct Auto 1.3(H) 0.0 - 0.4 % [facility] Lymphocytes Percent Auto 18.7(L) 20 - 40 % [facility] Monocytes Percent Auto 10.5 2 - 11 % [facility] Eosinophils Percent Auto 2.6 0 - 4 % [facility] Basophils Percent Auto 1.0 0 - 2 % [facility] NRBC Pct Auto 0.0 0.0 - 0.2 /100WBC [facility] Neutrophils Absolute Auto 2.6 2.0 - 8.3 x10*3/uL [facility] Imm Gran Abs Auto 0.05(H) 0.00 - 0.03 X10*3/uL [facility] Lymphocytes Absolute Auto 0.7(L) 1.2 - 4.9 X10*3/uL [facility] Monocytes Absolute Auto 0.4 0.1 - 1.2 X10*3/uL [facility] Eosinophils Absolute Auto 0.1 0.0 - 0.4 X10*3/uL [facility] Basophils Absolute Auto 0.0 0.0 - 0.2 X10*3/uL [facility] NRBC Abs Auto 0.000 0.0 - 0.012 X10*3/uL [facility] 09/06/2025 12:4 6 AM EDT 09/06/2025 12:51 AM EDT Generic External Data Provider LAB BLOOD ORDERAB LES Edited Result - Final Performing Organization Address [facility] de Phone Number [facility] [address] [place] [phone] * (ABNORMAL) Lactic Acid (09/06/2025 12:46 AM EDT) Only the most recent of3 resultswithin the time period is included. Pathologist [facility] Lactic Acid 2.2(HH) 0.5 - 2.0 mmol/L [facility] Comment:Critical value for t est(s): LACTIC ACID Results called toand read back by: NEFTALI Person calling:ALEate:09/06/25 Time:0113 09/06/2025 12:4 6 AM EDT 09/06/2025 12:51 AM EDT Generic External Data Provider LAB BLOOD ORDERAB LES Final Result Performing Organization Address [facility] Co de Phone Number [facility] [address] [place] [phone] * (ABNORMAL) Comprehensive Metabolic Panel (09/06/2025 12:46 AM EDT) Only the most recent of6 resultswithin the time period is included. Sodium 139 135 - 145 mmol/L [facility] Potassium 3.8 3.3 - 5.1 mmol/L [facility] Chloride 109(H) 96 - 108 mmol/L [facility] Carbon Dioxide 19(L) 22 - 29 mmol/L [facility] Anion Gap 15 12 - 20 [facility] Urea Nitrogen (BUN) 17(H) 9 - 16 mg/dL [facility] Creatinine, Serum 1.03 0.5 - 1.4 mg/dL [facility] Creatinine Clr Calc Pharmacy 66.8 [facility] Comment:eGFR (calculated fro m the MDRD study equation) and eCrCl(calculated from the Cockcroft-Gault equation) are based ondifferent parameters and may not yield comparable results.If eCrCl result is absurd, please check patient'sheight/weight. Estimated Glomerular Filt Rate >60 [facility] Comment:Chronic Kidney Disea se: Estimated GFR < 60 mL/min/1.50h1Iwktye Kidney Disease: Estimated GFR < 15 mL/min/1.73m2 Glucose 92 60 - 115 mg/dL [facility] Calcium 8.5 8.4 - 10.2 mg/dL [facility] Bilirubin, Total 0.4 0.0 - 1.0 mg/dL [facility] Aspartate Amino Transferase 36 5 - 37 U/L [facility] Alanine Aminotransferase 9 0 - 40 U/L [facility] Total Protein 7.9 6.5 - 8.0 g/dL [facility] Albumin Level 3.4(L) 3.5 - 5.0 g/dL [facility] Alkaline Phosphatase 113 39 - 117 U/L [facility] 09/06/2025 12:4 6 AM EDT 09/06/2025 12:51 AM EDT us Generic External Data Provider LAB BLOOD ORDERAB LES Final Result [facility] [address] [place] [phone] * High Sensitivity Troponin I (09/03/2025 2:15 PM EDT) Only the most recent of4 resultswithin the time period is included. TROPONIN I HIGH SENSITIVITY <2.7 <3.5 - 35.0 ng/L [facility] Comment:The Yarbrough high sens itivity Troponin-I results should beused in conjunction with other diagnostic information suchas ECG, clinical observations and information, and patientsymptoms to aid in the diagnosis of [place]. 09/03/2025 2:15 PM EDT 09/03/2025 2:18 PM EDT us Generic External Data Provider LAB BLOOD ORDERAB LES Final Result Performing Organization Address City/State/[facility] Co de Phone Number [facility] [address] [place] [phone] * XR Chest 2 Views (09/03/2025 12:15 PM EDT) Only the most recent of2 resultswithin the time period is included. Anatomical Region Laterality Modality Chest Radiographic Lamar ging 09/03/2025 12:1 5 PM EDT Narrative 09/03/2025 12:34 PM EDT [address] [address] XRay Report Signed Patient: Charbel Delgado MR#: [id number] : 1970 Acct:[id number] Age/Sex: 55 / M ADM Date: 09/03/25 Loc: .ED Attending Dr: Ordering Physician: Johanna Liao Date of Service: 09/03/25 Procedure(s): XR chest 2V Accession Number(s): [id number] cc: [facility]; Johanna Liao Reason for Exam: hypoxic [...] OV> 09/03/25 1231 DD/ 1215 TD/TT: 09/03/25 122 Pan Operator: Procedure Note Donotuseinterpreter, Image - 09/03/[address] [address] XRay Report Signed Patient: Isaias Delgado#: [id number] : 1970Acct:[id number] Age/Sex: 55 / MADM Date: 09/03/25 Loc: .ED Attending Dr: Ordering Physician: Johanna Liao Date of Service: 09/03/25 Procedure(s): XR chest 2V Accession Number(s): [id number] cc: [facility]; Johanna Liao Reason for Exam: hypoxic [...] 09/03/25 1231 DD/ 1215 TD/TT: 09/03/25 1225 Pan Operator: us [facility] External Provider IMG XR PROCEDURES Final Result * Hold Lavender - Possible Hematology (09/03/2025 11:54 AM EDT) Hold Lavender - Possible Hematololgy SEE NOTE [facility] Comment:Specimen will be hel d untested for 8 hours. Call Hematologyif testing is desired. 09/03/2025 11:5 4 AM EDT 09/03/2025 12:02 PM EDT Generic External Data Provider HISTORICAL/NON OR DERABLE LABS Final Result Performing Organization Address [facility] Co de Phone Number [facility] [address] [place] [phone] * Magnesium (09/03/2025 11:54 AM EDT) Only the most recent of3 resultswithin the time period is included. Magnesium 1.7 1.6 - 2.6 mg/dL [facility] 09/03/2025 11:5 4 AM EDT 09/03/2025 12:03 PM EDT Generic External Data Provider LAB BLOOD ORDERAB LES Final Result Performing Organization Address [facility] Co de Phone Number [facility] [address] [place] [phone] * Lipase (09/03/2025 11:54 AM EDT) Only the most recent of2 resultswithin the time period is included. Lipase 25 8 - 78 U/L [facility] 09/03/2025 11:5 4 AM EDT 09/03/2025 12:03 PM EDT Generic External Data Provider LAB BLOOD ORDERAB LES Final Result Performing Organization Address [facility] Co de Phone Number [facility] [address] [place] [phone] * Urinalysis w/reflex microscopic (08/21/2025 11:09 PM EDT) Color Urine Dark Yellow [facility] Appearance Urine Clear [facility] PH 5.0 5.0 - 9.0 [facility] Glucose Urine UA Negative Negative mg/dL [facility] Urine Blood Negative Negative [facility] Specific [place] - Urine 1.015 1.005 - 1.025 [facility] Urine Protein Negative Neg-Trace mg/dL [facility] Urine Ketones Negative Negative mg/dL [facility] Nitrite Urine Negative Negative [facility] Leukocyte Esterase Urine Negative Negative [facility] 08/21/2025 11:0 9 PM EDT 08/21/2025 11:13 PM EDT Narrative [facility] - 08/21/2025 11:16 PM EDT [id number], Clean Catch us Generic External Data Provider LAB URINE ORDERAB LES Final Result [facility] [address] [place] [phone] * (ABNORMAL) Lipid Panel, Standard (08/21/2025 8:16 PM EDT) Triglycerides 62 <150 mg/dL [facility] Comment:Desirable Triglyceri de: less than 150 mg/dLBorderline High Triglyceride 150-199 mg/dLHigh Triglyceride: 200-499 mg/dLVery High Triglyceride: greater than or equal to 5OO mg/dL Cholesterol 118 <200 mg/dL [facility] Comment:Desirable Cholestero l: less than 200 mg/dLBorderline High Cholesterol: 200-239 mg/dLHigh Cholesterol: greater than 239 mg/dL LDL Cholesterol Calculated 77 <100 mg/dL [facility] Comment:Desirable LDL: less than 100 mg/dLNear Optimal/Above Optimal LDL: 110- 129 mg/dLBorderline High LDL: 130-159 mg/dLHigh LDL: 160-189 mg/dLVery High LDL: greater than or equal to 190 mg/dL HDL Cholesterol 29(L) >40 mg/dL [facility] Comment:Desirable HDL: great er than 40 mg/dL Note: This HDL assay may give artificially low results in patients with liver disease. 08/21/2025 8:16 PM EDT 08/21/2025 8:22 PM EDT us Generic External Data Provider LAB BLOOD ORDERAB LES Final Result Performing Organization Address City/State/[facility] Co de Phone Number [facility] [address] [place] [phone] * XR Foot 3+ Views Right (08/15/2025 8:10 AM EDT) Anatomical Region Laterality Modality Lower Extremities, Foot Right Radiogra phic Imaging 08/15/2025 8:10 AM EDT Narrative 08/15/2025 8:34 AM EDT [address] [address] XRay Report Signed Patient: Charbel Delgado MR#: [id number] : 1970 Acct:[id number] Age/Sex: 55 / M ADM Date: 08/15/25 Loc: [place] [address]: Yazmin WALLACE Ordering Physician: Yazmin Shafer Date of Service: 08/15/25 Procedure(s): XR foot RT min 3V Accession Number(s): [id number] cc: Yazmin Shafer; [facility] Reason for Exam: right foot pain [...] Nunn MD in OV> 08/15/25 0831 DD/ 9 TD/TT: 08/15/25 08 Pan Operator: Procedure Note Donlibradoter, Image - 08/15/2025 [place] [address] XRay Report Signed Patient: sIaias Delgado#: [id number] : 1970Acct:[id number] Age/Sex: 55 / MADM Date: 08/15/25 Loc: [facility]: Yazmin WALLACE Ordering Physician: Yazmin Shafer Date of Service: 08/15/25 Procedure(s): XR foot RT min 3V Accession Number(s): [id number] cc: Yazmin Shafer; [facility] Reason for Exam: right foot pain [...] signed by Dony Nunn MD in OV> 08/15/2531 DD/ 9 TD/TT: 08/15/25819 Pan Operator: [facility] External Provider IMG XR PROCEDURES Final Result * (ABNORMAL) Drug Monitoring, Panel 1, Screen, Urine (07/06/2025 6:08 PM EDT) Opiate Screen Urine Not Detected Not Detect [facility] Comment:Opiate cut-off is 30 0 ng/mL.Positive results are unconfirmed and should not be used fornon-medical purposes. Barbiturates, Urine POSITIVE(A) Not Detect [facility] Comment:Barbiturate cut-off is 200 ng/mL.Positive results are unconfirmed and should not be used fornon-medical purposes. Phencyclidine Screen Urine Not Detected Not Detect [facility] Comment:Phencyclidine cut-of f is 25 ng/mL.Positive results are unconfirmed and should not be used fornon-medical purposes. Amphetamine Screen Urine Not Detected Not Detect [facility] Comment:Amphetamine cut-off is 1000 ng/mL.Positive results are unconfirmed and should not be used fornon-medical purposes. Benzodiazepines Screen Urine Not Detected Not Detect [facility] Comment:Benzodiazepine cut-o ff is 200 ng/mL.Positive results are unconfirmed and should not be used fornon-medical purposes. Cocaine Screen Urine Not Detected Not Detect [facility] Comment:Cocaine cut-off is 3 00 ng/mL.Positive results are unconfirmed and should not be used fornon-medical purposes. Cannabinoid Screen Urine Not Detected Not Detect [facility] Comment:Cannabinoid cut-off is 50 ng/mL.Positive results are unconfirmed and should not be used fornon-medical purposes. Methadone Screen, Urine Not Detected Not Detect ng/mL [facility] Comment:Methadone cut-off is 300 ng/mL.Positive results are unconfirmed and should not be used fornon-medical purposes. FENTANYL URINE Not Detected Not Detect [facility] Comment:Fentanyl cut-off is 1 ng/mL.Positive results are unconfirmed and should not be used fornon-medical purposes. Oxycodone Urine Screen Not Detected Not Detect ng/mL [facility] Comment:Oxycodone cut-off is 100 ng/mL.Positive results are unconfirmed and should not be used fornon-medical purposes. Buprenorphine Screen Not Detected Not Detect ng/mL [facility] Comment:Buprenorphine cut-of f is 5 ng/mL.Positive results are unconfirmed and should not be used fornon-medical purposes. 07/06/2025 6:08 PM EDT 07/06/2025 6:11 PM EDT us Generic External Data Provider LAB URINE ORDERAB LES Final Result Performing Organization Address [facility]/ZIP Co de Phone Number [facility] [address] [place] [phone] * B Type Natriuretic Peptide (BNP) (07/06/2025 5:58 PM EDT) Only the most recent of2 resultswithin the time period is included. B Type Natriuretic Peptide 100 <100 pg/mL [facility] 07/06/2025 5:58 PM EDT 07/06/2025 6:06 PM EDT Generic External Data Provider LAB BLOOD ORDERAB LES Final Result Performing Organization Address [facility] Co de Phone Number [facility] [address] [place] [phone] * CT Chest w/ Contrast (06/19/2025 4:46 AM EDT) Anatomical Region Laterality Modality Body, Chest Computed Tomogra phy 06/19/2025 4:46 AM EDT Narrative 06/19/2025 4:48 AM EDT [address] [address] [address] Scan Report Signed Patient: Charbel Delgado MR#: [id number] : 1970 Acct:[id number] Age/Sex: 55 / M ADM Date: 06/19/25 [facility]: Mercedes Hogan MD Ordering Physician: David Galvez PA-C Date of Service: 06/19/25 Procedure(s): CT chest w IV con Accession Number(s): [id number] cc: [facility]; David Galvez PA-C Report Number: [id number]: Total DLP = 265.00 mGy-cm CLINICAL HISTORY: [...] in OV> 06/19/25446 DD/ 5 TD/TT: 06/19/25445 Pan Operator: Procedure Note Donotuseinterpreter, Image - 06/19/[address] [address] [address] Scan Report Signed Patient: Isaias Delgado#: [id number] : 1970Acct:[id number] Age/Sex: 55 / MADM Date: 06/19/25 Loc: [facility]: Mercedes Hogan MD Ordering Physician: David Galvez PA-C Date of Service: 06/19/25 Procedure(s): CT chest w IV con Accession Number(s): [id number] cc: [facility]; David Galvez PA-C Report Number: [id number]: Total DLP = 265.00 mGy-cm CLINICAL HISTORY: [...] This document has been electronically signed by: sOkar Tariq MD on 06/19/2025 04:46:17 Dictated By: Oskar Tariq MD Signed By: <Electronically signed by Oskar Tariq MD in OV> 06/19/25446 DD/ 5 TD/TT: 06/19/25445 Pan Operator: [facility] External Provider IMG CT PROCEDURES Edited Result - Final from Last 3 Months Insurance [place], [place] HSN PARTIAL [facility] C3 [place] Care Teams Assembly Loader Relationship Specialty Start Date End Date Charbel Calles RN [address] [place] [phone] Registered Nurse Family Medicine 09/11/25 Conor Vidal 09/11/25
--- OUTSIDE RECORDS SUMMARY | 2025-09-11 21:53 | XMS_ITS | Encounter Summary ---
Author Organization [facility] Address [address] [place] [address] 7 [place] [address] Care Team Providers Care Instructional Design Specialist Name Role Phone Charbel Calles RN Unavailable [phone] Conor Vidal Unavailable Reason for Visit * Reason Comments Care Coordination C3/W Conor Pierre bere, Chart review Encounter Details Date Type Department Care Team (Latest Contact Info) Description 09/11/2025 Patient Outreach [facility] [address] [place] [address] Conor Vidal Care Coordination (C3CM/LORETAW Cnoor Vidal, Chart review ) Social History Tobacco Use Types Packs/Day Years Used Date Smoking Tobacco: Never Assessed Sex and Gender Information Value Date Recorded Sex Assigned at Male 11/23/2022 11:29 AM EST Legal Sex Male 11:26 AM EST Gender Identity Male 11/23/2022 11:29 AM EST Sexual Orientation Straight 01/11/2024 8: 14 AM EST documented as of this encounter Progress Notes * Conor Vidal - 09/11/2025 9:37 AM EDT AMY Vidal reviewed chart review completed by WEN Calles RN: WEN Calles RN, performed chart review, in anticipation of initial assessment with patient, as patient has stratified for C3 Adult Complex Care through the ADT feed. History significant for chronic systolic heart failure, alcoholic cirrhosis, depression with anxiety, hypertension. Specialists include--. ED visits within the last 12 months include C 09/10/25, C 09/03-09/05/25, C 08/15-08/21/25, C 07/30/25, C 07/18/25, [facility] 07/13-07/16/[place], etc. Last appointment in PCP office on 05/08/25. Need MONOGRAM OPERATOR appointment. documented in this encounter Plan of Treatment Not on file documented as of this encounter Visit Diagnoses Not on filedocumented in this encounter Care Teams Instructional Design Specialist Relationship Specialty Start Date End Date Charbel Calles, RN [address] [place] [address] Registered Nurse Family Medicine 09/11/25 Conor Vidal 09/11/25 documented as of this encounter
--- OUTSIDE RECORDS SUMMARY | 2025-09-11 21:53 | XMS_ITS | Encounter Summary ---
Author Organization [facility] Address [address] [place] [phone] Phone Care Team Providers Care Food Writer Name Role Phone [facility], [facility] Primary Care Provider Pcp, Unknown Unavailable Unavailable Encounter Details Date Type Department Care Team (Late st Contact Info) Description 02/02/2024 Procedure Pass [facility] Endoscopy Admitting Dept Virtual Department [address] [place] [address] Social History Tobacco Use Types Packs/Day Years [...] on filedocumented in this encounter Care Teams Food Writer Relationship Specialty Start Date End Date [facility] [address] [place] [phone] PCP - General 10/07/23 Pcp, Unknown 10/07/23 documented as of this encounter Additional Source Comments The information contained in this document represents components of the legal health record. It is not the complete legal health record.[facility]
--- NOTE | 2025-09-11 23:38 | ED.GENADULT ---
HPI - General Adult General Chief complaint: Back Pain/Injury Stated complaint: Back pain Time Seen by Provider: 09/11/25 22:06 Source: patient, RN notes reviewed and old records reviewed Mode of arrival: EMS Limitations: no limitations History of Present Illness ED Provider: Chapis VIVAR narrative: 55-year-old male presents for evaluation of ?I do not want to be cold and wet. ? This is the patient who is very well known to this emergency department, in fact his discharge her this morning. He reported to EMS that he was having back and leg pain. At the time my evaluation he reports that he has no pain whatsoever. He reports that he just does not want to be outside, as it is currently pouring rain. The patient denies any falls or injuries pain He admits to drinking alcohol in excess today but she does every day Denies any fevers, chills, chest pain, back pain, abdominal pain, nausea, vomiting Related Data Previous Rx's ?Medication ?Instructions ?Recorded fluticasone furoate 100 1 inh inhalation DAILY #30 ea 09/09/25 mcg/actuation blister powder for inhalation Allergies Allergy/AdvReac Type Severity Reaction Status Date / Time No Known Allergies (No Known Allergy Verified 09/11/25 21:30 Allergies*) Review of Systems Constitutional: Constitutional: Denies chills, Denies frequent falls and Denies headache(s) Eyes: Eyes: Denies blurry vision ENT: Denies vertigo, Denies dizziness and Denies headache(s) Cardiovascular: Cardiovascular: Denies chest pain and Denies dyspnea on exertion Respiratory: Respiratory: Denies cough and Denies dyspnea on exertion Gastrointestinal: Gastrointestinal: Denies abdominal pain Genitourinary: Genitourinary: Denies flank pain Musculoskeletal: Musculoskeletal: Reports back pain Integumentary/Breasts: Skin/Breast: Denies rash Neurologic: Denies vertigo, Denies dizziness, Denies frequent falls and Denies headache(s) PMF Past Medical History Medical History Hemorrhoids, internal, with bleeding Rectal bleeding Pancytopenia Alcohol withdrawal Alcohol use disorder, severe, dependence Pancytopenia Cirrhosis Hypomagnesemia Aspiration pneumonia Alcohol use disorder CHF (congestive heart failure) Alcohol abuse Acute hypoxemic respiratory failure Anemia Pneumonia Alcohol withdrawal syndrome Alcohol abuse Thrombocytopenia Esophageal varices Acute on chronic anemia Alcoholic liver disease Thrombocytopenia Malnutrition CHF (congestive heart failure) Anemia Thrombocytopenia Acute on chronic anemia CHF (congestive heart failure) Anemia Alcohol abuse Surgical History No history of previous surgery Social History Social History Household Members: None Household Members Other:: homeless Housing: Homeless Housing Other:: homeless Do you presently have visiting nurse or other home services: No Unable to assess alcohol history related to: Refusing to respond Alcohol intake: current Alcohol intake frequency: 3 or more drinks per day Alcohol type: hard liquor Comment: pt refuse to have staff remain in [place] Patient Tobacco Use Status: Former Tobacco user Tobacco use type: Cigarette Smoked in Last 30 Days: No Second Hand Smoke Exposure: No Use of substances other than those prescribed or required for medical reasons: Yes Advance Directives: Yes Advance Directives on File: Yes Advance Directives Date on File: 07/13/23 Do you have a plan to hurt others: No Plan service: No Physical Exam ED Vital Signs: Vital Signs - 24 hr 09/11/25 21:25 09/12/25 06:39 09/12/25 06:44 Temperature 97.7 F 98.5 F Pulse Rate 72 72 Respiratory Rate 18 16 Blood Pressure 107/62 90/53 L 97/56 L Pulse Oximetry 94 93 92 Oxygen Delivery Method Nasal Cannula Room Air Nasal Cannula Oxygen Flow Rate 4 4 09/12/25 08:05 Temperature Pulse Rate 73 Respiratory Rate 18 Blood Pressure 91/52 L Pulse Oximetry 94 Oxygen Delivery Method Nasal Cannula Oxygen Flow Rate 4 BMI result Body Mass Index 20.5 Const General: healthy appearing, comfortable, no acute distress, alert and awake Nutritional Appearance: well nourished Orientation/consciousness: patient oriented x3 HENMT Head: Yes normocephalic and Yes atraumatic Eyes Eyelids: Yes eyelids normal Conjunctivae: conjunctivae normal Sclerae: sclerae normal Corneas: corneas normal Pupils: Equal, round and reactive pupils present EOM: EOMs intact bilaterally Neck Neck: Yes full ROM Resp Effort & Inspection: normal respiratory effort, able to speak in complete sentences, no audible wheezes and not labored Auscultation: clear to auscultation bilaterally Cardio Rate: regular rate Rhythm: regular rhythm GI Inspection: No distended Palpation (GI): Soft to palpation, not firm, nontender, no guarding and not rigid Back/Spine/Pelvis Other: No thoracic or lumbar vertebral tenderness. Skin General skin exam: elasticity normal Neuro General: patient oriented x3 Cranial nerves: Yes Equal, round and reactive pupils present and Yes Bilaterally intact EOM present Cognition (Neuro): normal cognition Extrem Other: Moving all extremities well without any obvious deformities Course Course Course Narrative: Time: 09:07 Date: 09/12/25 Provider: Melinda Lawrence PA-C Physician observation ended at 907 am Patient has been cleared for discharge by the CARE team- he is no longer intoxicated and back to baseline. Will follow up as an outpatient. Medical Decision Making Medical Decision Making [facility] Narrative: 55-year-old male presents for evaluation of homelessness. The patient admits that he does not want to be out in the rain or cold. I saw this patient myself last night into this morning and he was ultimately discharged. He offers no complaints, he appears well with stable vital signs currently. The patient has a history of hypoxia and has previously refused supplemental oxygen that was attempted to be set up on multiple occasions. He denies any fevers, chills or cough. He had a chest x-ray late last night that showed possible pulmonary edema. He is given a dose of Lasix and ultimately discharged home Differential Diagnosis Differential Diagnoses: The differential diagnosis associated with the presentation includes Malingering Homelessness Alcohol intoxication Substance abuse Admission/Observation Consideration of admission/observation: Escalation of care including admission/observation considered Lab Data [facility] Lab Attestation statement: I reviewed the patient's lab results. Chronic Conditions Patient?s care impacted by: Other Social Determinants Patient?s care significantly limited by Social Determinants of Health including: Alcoholism and drug addiction in family and Other Social Determinant of Health Discharge Plan Discharge Clinical Impression: Alcohol dependence Patient Disposition: Home, Self-Care Instructions: Abuse of Alcohol (ED) Additional Instructions: Alcohol use disorder You were seen in the Emergency Department today for treatment of alcohol use disorder.? You may have been given medications to help with your withdrawal symptoms.? Please do not drink alcohol with them. This is very dangerous and can cause respiratory depression or other adverse reactions depending on the medication. If you would like to cut down or stop your alcohol use please consider calling our outpatient Addiction Treatment office:? [facility] (M-F 9a-5p) [address] [place] [address] You have also been given a list of treatment providers in the area that can assist as well.? If you experience seizures, vomiting blood, black stools, falls, severe headache, chest pain, fevers, trouble breathing, hallucinations or any other concerns you need to call 911 or seek immediate care. Please stay hydrated. Prescriptions: No Action fluticasone furoate 100 mcg/actuation blister with device 1 inh inhalation DAILY Qty: 30 0RF Print Language: Turkish
--- NOTE | 2025-09-11 23:46 | PC.NURSE ---
RN assumed care of this pt at 2300; pt is asleep. 2L of O2 NC; Respirations even and unlabored. No apparent distress. Able to make needs known. bed at lowest position. bed rails up.
[2025-09-12 06:39] VITALS: BP 90/53; PULSE 72; RESP 16; TEMP 36.9; O2SAT 93
[2025-09-12 06:44] VITALS: BP 97/56; O2SAT 92
[2025-09-12 08:05] VITALS: BP 91/52; PULSE 73; RESP 18; O2SAT 94
[2025-09-12 09:37] VITALS: BP 91/52; PULSE 73; RESP 18; TEMP 37; O2SAT 94
== END 2025-09-12 09:41 | disposition home or self-care (01) ==
PROVIDERS: Emergency Provider Student in an Organized Health Care Education/Training Program
DX: F10.20 Alcohol dependence, uncomplicated (principal); D64.9 Anemia, unspecified; I50.9 Heart failure, unspecified; Z59.00 Homelessness unspecified; Z87.01 Personal history of pneumonia (recurrent)
CPT/HCPCS: 99284

== ENCOUNTER 2025-09-12 20:01 | Emergency (ER) | payer MEDICAID, SELFPAY ==
--- NOTE | 2025-09-12 | ECG_ITS ---
Test Reason : LEG PAIN Blood Pressure : */* mmHG Vent. Rate : 77 BPM Atrial Rate : 77 BPM P-R Int : 110 ms QRS Dur : 86 ms QT Int : 414 ms P-R-T Axes : 21 28 37 degrees QTcB Int : 468 ms Sinus rhythm with short TX Otherwise normal ECG When compared with ECG of 11-Sep-2025 01:31, TX interval has decreased Referred By: Generic ED Physician Electronically Signed By: EDITA HALE
--- NOTE | ~2025-09-12 | XR_ITS ---
CLINICAL HISTORY: hypoxic 1 view chest x-ray Comparison: Chest x-ray from 09/11/2025 Findings: Mild worsening of the mild pulmonary opacities nonspecific and may reflect pulmonary edema or pneumonitis given interstitial predominance. No pneumothorax in this portable image. Question pleural thickening versus trace pleural effusions. Mild cardiomegaly accentuated by AP technique. No definite osseous change in the [id number]. IMPRESSION: Mild pulmonary opacities nonspecific and may reflect pulmonary edema or pneumonitis. This document has been electronically signed by: Phillip Anthony MD on 09/12/2025 22:44:13
[2025-09-12 20:09] VITALS: BP 116/78; PULSE 78; O2SAT 98; BMI 28.3
[2025-09-12 20:13] VITALS: BP 111/62; PULSE 83; RESP 16; TEMP 36.9; O2SAT 83
--- OUTSIDE RECORDS SUMMARY | 2025-09-12 20:38 | XMS_ITS | Encounter Summary ---
Author Organization [facility] Address [address] [place] [phone] Phone Care Team Providers Care Marine Pipefitter Helper Name Role Phone [facility], [facility] Primary Care Provider Pcp, Unknown Unavailable Unavailable Encounter Details Date Type Department Care Team ([facility] st Contact Info) Description 10/31/2023 Procedure Pass [facility] Endoscopy Admitting Dept Virtual Department [address] [place] [phone] Social History Tobacco Use Types Packs/Day Years [...] on filedocumented in this encounter Care Teams Marine Pipefitter Helper Relationship Specialty Start Date End Date [facility] [address] [place] [address] PCP - General 10/07/23 Pcp, Unknown 10/07/23 documented as of this encounter Additional Source Comments The information contained in this document represents components of the legal health record. It is not the complete legal health record.[facility]
--- OUTSIDE RECORDS SUMMARY | 2025-09-12 20:38 | XMS_ITS | Encounter Summary ---
Author Organization [facility] Address [address] [facility] [address] [place] [address] Phone Care Team Providers Care Food Service Clerk Name Role Phone [facility], [facility] Primary Care Provider Pcp, Unknown Unavailable Unavailable Encounter Details Date Type Department Care Team (Late st Contact Info) Description 01/04/2024 Transcribe Orders [facility] Laboratory [address] [place] [id number] Missy Miranda PA [address] [place] [phone] [email or web address] Need for hepatitis C screening test (Primary [...] FERRITIN 168 30 - 400 ug/L [facility] Blood 01/04/2024 9:22 AM EST 01/04/2024 9:53 AM EST Missy WALLACE LAB BLOOD ORDERABLES Fin al Result Performing Organization Address City/[facility] Co de Phone Number [address] [address] * (ABNORMAL) PT-INR (01/04/2024 9:22 AM EST) [facility] PT 15.9(H) 10.2 - 12.9 sec [facility] INR 1.4(H) 0.9 - 1.1 [facility] Comment:Therapeutic range fo r oral Vitamin K antagonists: 2.0-3.5 Blood 01/04/2024 9:22 AM EST 01/04/2024 9:53 AM EST Missy WALLACE LAB BLOOD ORDERABLES Fin al Result Performing Organization Address City/[facility]/ZIP Co de Phone Number [address] [address] * Iron and iron binding capacity (01/04/2024 9:22 AM EST) IRON 81 45 - 160 ug/dL [facility] IRON BINDING CAPACITY 326 228 - 428 ug/dL [facility] TRANSFERRIN SATURAT. 25 20 - 55 % [facility] Blood 01/04/2024 9:22 AM EST 01/04/2024 9:53 AM EST Missy WALLACE LAB BLOOD ORDERABLES Fin al Result Performing Organization Address [facility] de Phone Number [address] [address] * Lipase (01/04/2024 9:22 AM EST) LIPASE 35 16 - 63 U/L [facility] Blood 01/04/2024 9:22 AM EST 01/04/2024 9:53 AM EST Missy WALLACE LAB BLOOD ORDERABLES Fin al Result Performing Organization Address [facility] de Phone Number [address] [address] * Hepatitis C antibody, qualitative (01/04/2024 9:22 AM EST) HCV NON-REACTIV E NON-REACTI VE [facility] Blood 01/04/2024 9:22 AM EST 01/04/2024 9:53 AM EST Missy WALLACE LAB BLOOD ORDERABLES Fin al Result Performing Organization Address [facility] de Phone Number [address] [address] * Hepatitis B surface antibody (01/04/2024 9:22 AM EST) HBV SURFACE ANTIBODY Negative [facility] Comment: Unvaccinated: Negative Vaccinated: Positive Blood 01/04/2024 9:22 AM EST 01/04/2024 9:53 AM EST Missy WALLACE LAB BLOOD ORDERABLES Fin al Result Performing Organization Address City/[facility]/ZIP Co de Phone Number [address] [address] * Hepatitis B surface antigen (01/04/2024 9:22 AM EST) HBV SURFACE ANTIGEN NON-REACTI VE NON-REACTI VE [facility] Blood 01/04/2024 9:22 AM EST 01/04/2024 9:53 AM EST Missy WALLACE LAB BLOOD ORDERABLES Fin al Result Performing Organization Address [facility] Co de Phone Number [address] [address] * Hepatitis B core antibody, total (01/04/2024 9:22 AM EST) HEP B CORE AB, TOT NON-REACTI VE NON-REACTI VE [facility] Blood 01/04/2024 9:22 AM EST 01/04/2024 9:53 AM EST Missy WALLACE LAB BLOOD ORDERABLES Fin al Result Performing Organization Address [facility] Co de Phone Number [address] [address] * HEPATITIS A ANTIBODY, TOTAL (01/04/2024 9:22 AM EST) HAV TOTAL AB NON-REACTI VE NON-REACTI VE [facility] Blood 01/04/2024 9:2 2 AM EST 01/04/2024 9:53 AM EST Missy WALLACE LAB BLOOD ORDERABLES Fin al Result Performing Organization Address City/[facility] Co de Phone Number [address] [address] * (ABNORMAL) GGT (Gamma glutamyl transferase) (01/04/2024 9:22 AM EST) GGT 54(H) 11 - 51 U/L [facility] Blood 01/04/2024 9:22 AM EST 01/04/2024 9:53 AM EST Missy WALLACE LAB BLOOD ORDERABLES Fin al Result [address] [address] * C-Reactive Protein (01/04/2024 9:22 AM EST) Pathologist [facility] C REACTIVE PROTEIN <3.0 0.0 - 4.0 mg/L [facility] Blood 01/04/2024 9:22 AM EST 01/04/2024 9:53 AM EST Missy WALLACE LAB BLOOD ORDERABLES Fin al Result Performing Organization Address City/[facility] Co de Phone Number [address] [address] * (ABNORMAL) Comprehensive metabolic panel (01/04/2024 9:22 AM EST) Pathologist [facility] SODIUM 137 133 - 146 mmol/L [facility] POTASSIUM 4.5 3.3 - 5.1 mmol/L [facility] CHLORIDE 105 96 - 108 mmol/L [facility] CO2 22 21 - 35 mmol/L [facility] BUN 14 6 - 19 mg/dL [facility] CREATININE 0.80 0.5 - 1.5 mg/dL [facility] GLUCOSE 104(H) 70 - 99 mg/dL [facility] ALBUMIN 4.1 3.9 - 4.8 g/dL [facility] TOTAL PROTEIN 8.1(H) 6.5 - 8.0 g/dL [facility] CALCIUM 10.4(H) 8.4 - 10.3 mg/dL [facility] ALKALINE PHOSPHATASE 118(H) 39 - 117 U/L [facility] TOTAL BILIRUBIN 0.6 0.0 - 1.2 mg/dL [facility] AST 25 0 - 37 U/L [facility] ALT 7 0 - 40 U/L [facility] GLOBULIN 4.0 1 - 4.8 g/dL [facility] EGFR 105 >59 mL/min/1.7 3m2 [facility] Comment:Estimated glomerular filtration rate calculated using the CKD-EPI refit equation. ANION GAP 15 10 - 20 mmol/L [facility] Blood 01/04/2024 9:22 AM EST 01/04/2024 9:53 AM EST us Missy WALLACE LAB BLOOD ORDERABLES Fin al Result Performing Organization Address City/State/[facility] Co de Phone Number [address] [address] * (ABNORMAL) CBC and differential (01/04/2024 9:22 AM EST) WBC 3.17(L) 4.00 - 11.00 K/uL [facility] RBC 3.41(L) 4.23 - 5.82 M/uL [facility] HGB 10.7(L) 13.4 - 17.5 g/dL [facility] HCT 33.8(L) 37.0 - 51.0 % [facility] PLT 64(L) 140 - 430 K/uL [facility] Comment:Consistent with prev ious result. MCV 99.1(H) 78.0 - 97.0 fL [facility] MCH 31.4 25.0 - 33.0 pg [facility] MCHC 31.7(L) 32.0 - 36.0 g/dL [facility] RDW 13.0 11.0 - 15.0 % [facility] MPV 13.2(H) 8.4 - 12.8 fl [facility] DIFF METHOD Auto [facility] NEUTS 57.2 43.0 - 75.0 % [facility] LYMPHS 24.9 18.2 - 47.4 % [facility] MONOS 12.0(H) 4.00 - 11.00 % [facility] EOS 4.7 0.0 - 8.0 % [facility] BASOS 0.9 0.0 - 2.0 % [facility] Granulocytes, immature (%) 0.3 0.0 - 0.9 % [facility] ABSOLUTE NEUTS 1.81 1.80 - 7.70 K/uL [facility] ABSOLUTE LYMPHS 0.79(L) 1.00 - 3.10 K/uL [facility] ABSOLUTE MONOS 0.38 0.20 - 0.80 K/uL [facility] ABSOLUTE EOS 0.15 0.00 - 0.80 K/uL [facility] ABSOLUTE BASOS 0.03 0.00 - 0.09 K/uL [facility] Granulocytes, immature 0.01 0.00 - 0.05 K/uL [facility] Blood 01/04/2024 9:22 AM EST 01/04/2024 9:53 AM EST [facility] BLOOD ORDERABLES Fin al Result [address] [address] * (ABNORMAL) Immunoglobulin A (01/04/2024 9:22 AM EST) Pathologist [facility] IgA 436(H) 70 - 400 mg/dL [facility] Blood 01/04/2024 9:22 AM EST 01/04/2024 9:53 AM EST [facility] Nathaly Miranda ID LAB BLOOD ORDERABLES Fin al Result [address] [address] * Tissue transglutaminase IgA (01/04/2024 9:22 AM EST) TTG IGA ANTIBODY 1.9 <4.0 (Negative) U/mL [facility] [address] Blood 01/04/2024 9:22 AM EST 01/04/2024 9:53 AM EST Missy WALLACE LAB BLOOD ORDERABLES Fin al Result [facility] [address] [place] [address] * Smooth Muscle Antibody (01/04/2024 9:22 AM EST) SMOOTH MUSCLE AB POSITIVE AT 1:20 [facility] Comment: Performing Physician, Max Jimenez M.D., [id number] Normal: Negative at 1:20 Blood 01/04/2024 9:22 AM EST 01/04/2024 9:53 AM EST Missy WALLACE LAB BLOOD ORDERABLES Fin al Result Performing Organization Address [facility] Co de Phone Number [address] [address] * Ceruloplasmin (01/04/2024 9:22 AM EST) CERULOPLASMIN 31 20 - 60 mg/dL [facility] Blood 01/04/2024 9:22 AM EST 01/04/2024 9:53 AM EST Missy WALLACE LAB BLOOD ORDERABLES Fin al Result Performing Organization Address [facility] Co de Phone Number [address] [address] * (ABNORMAL) Antinuclear antibody (JERMAIN) (01/04/2024 9:22 AM EST) JERMAIN SCREEN ON HEP 2 Positive(A ) Negative [facility] Comment:An JERMAIN Titer has bee n reflexed. The results will follow. Blood 01/04/2024 9:22 AM EST 01/04/2024 9:53 AM EST Missy WALLACE LAB BLOOD ORDERABLES Fin al Result Performing Organization Address City/[facility]/ZIP Co de Phone Number [place] [address] [address] * Anti-Mitochondrial Antibody (AMA) (01/04/2024 9:22 AM EST) MITOCHONDRIAL AB NEGATIVE AT 1:20 [facility] Comment: Performing Physician, Max Jimenez M.D., [id number] Normal: Negative at 1:20 Blood 01/04/2024 9:22 AM EST 01/04/2024 9:53 AM EST Missy WALLACE LAB BLOOD ORDERABLES Fin al Result [address] [address] * Amylase (01/04/2024 9:22 AM EST) Pathologist [facility] AMYLASE 86 28 - 100 U/L [facility] Blood 01/04/2024 9:22 AM EST 01/04/2024 9:53 AM EST Missy WALLACE LAB BLOOD ORDERABLES Fin al Result Performing Organization Address City/[facility]/ZIP Co de Phone Number [address] [address] * AFP (non-maternal specimens) (01/04/2024 9:22 AM EST) Pathologist [facility] AFP (NON-MATERNAL) 4.7 <7.9 ng/mL [facility] Comment: Test Methodology Filipe [id number] Patient results determined by assays using different manufacturers or methods may not be comparable. Blood 01/04/2024 9:22 AM EST 01/04/2024 9:53 AM EST Missy WALLACE LAB BLOOD ORDERABLES Fin al Result Performing Organization Address City/[facility]/ZIP Co de Phone Number [address] [address] * Ciqob-0-wwhyjqzhfyg phenotyping (01/04/2024 9:22 AM EST) ALPHA 1 ANTITRYPSIN 173 100 - 190 mg/dL [facility] [address] Comment: (NOTE) ADDITIONAL INFORMATION Method: Nephelometry A1A PHENOTYPE MM bands [facility] [address] Comment: (NOTE) A single M isoform is detected. In the context of a normal dakvu-2-gueeyxduxdn concentration, this is consistent with an MM phenotype. ADDITIONAL INFORMATION Method: Isoelectric Focusing, This assay identifies the phenotype of the circulating boqyr-1-lpsmvrrfyej (A1A) protein. If the patient is on replacement therapy or has been recently transfused, the phenotype will detect patient and replacement or transfused plasma A1A protein. This test also cannot detect a null allele which could be responsible for an A1A deficiency. Blood 01/04/2024 9:22 AM EST 01/04/2024 9:53 AM EST Missy WALLACE LAB BLOOD ORDERABLES Fin al Result [facility] [address] [place] [address] documented in this encounter Visit Diagnoses Diagnosis Need for hepatitis C screening test- Primary Special screening examination for other specified viral diseases Hepatic cirrhosis, unspecified hepatic cirrhosis type, unspecified whether ascites present Esophageal varices in alcoholic cirrhosis Esophageal varices without mention of bleeding documented in this encounter Care Teams Food Service Clerk Relationship Specialty Start Date End [facility] [address] [place] [address] PCP - General 10/07/23 Pcp, Unknown 10/07/23 documented as of this encounter Additional Source Comments The information contained in this document represents components of the legal health record. It is not the complete legal health record.[facility]
--- OUTSIDE RECORDS SUMMARY | 2025-09-12 20:38 | XMS_ITS | Clinical Summary ---
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 [address] [place] [address] Edith Zuniga, RN 09/11/2025 Patient Outreach [address] [address] Conor Vidal Care Coordination (C3/W Conor Vidal, Initial outreach call_lvm ) 09/11/2025 Patient Outreach [address] [address] Conor Vidal Care Coordination (C3/W Conor Vidal, Chart review ) 09/11/[address] [facility] [address] [place], [place] [phone] Charbel Calles, RN Care Coordination (C3CM- chart review) 09/11/2025 Patient Outreach [facility] [address] [place] [address] Jodi Cerda, RN 09/08/2025 Results Follow-Up [facility] Information Management [address] [place] [address] External Provider, [facility] CTA Chest PE Protocal, XR Chest 1 View 09/06/2025 Orders Only [facility] External Provider, [facility] 09/03/2025 Results Follow-Up [facility] Information Management [address] [place] [address] Provider, Generic External Data XR Chest 2 Views 09/03/2025 Orders Only GENERIC EXTERNAL DATA DEPARTMENT Provider, Generic External Data 08/21/2025 Orders Only GENERIC EXTERNAL DATA DEPARTMENT Provider, Generic External Data 08/14/2025 Orders Only [facility] External Provider, [facility] 08/04/2025 Patient Outreach [facility] [address] [place] [address] Conor Vidal Care Coordination ([facility]/Liz Vidal TC #6 outreach_closed ) 07/21/2025 Patient Outreach [facility] [address] [place] [address] Conor Vidal 07/08/[address] 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 07/06/2025 Orders Only GENERIC EXTERNAL DATA DEPARTMENT Provider, Generic External Data 07/02/2025 Orders Only [facility] External Provider, [facility] 07/01/2025 Patient Outreach [address] [address] Missy Milner, LAURA Care Coordination ([facility]/Liz Vidal, TC #5 initial outreach attempt_lvm) 06/19/2025 Results Follow-Up [facility] Information Management [address] [place] [address] Provider, Generic External Data XR Chest 2 Views 06/19/2025 Results Follow-Up [facility] Information [facility] [address] [place] [address] External Provider, [facility] CT Chest w/ Contrast 06/19/2025 Orders Only [facility] External Provider, [facility] 06/18/2025 Orders Only GENERIC EXTERNAL DATA DEPARTMENT Provider, Generic External Data from Last 3 Months Immunizations Immunization Administration Dates Next Due better. SARS-CoV-2 Vaccination 04/28/2021 Pfizer Covid-19 Vaccine 12+ [...] PM EDT Narrative 09/06/2025 12:06 PM EDT [place] [address] [address] Scan Report Signed Patient: Charbel Delgado MR#: [id number] : 1970 Acct:[id number] Age/Sex: 55 / M ADM Date: 09/06/25 Loc: .ED Attending Dr: Ordering Physician: Abril Sam Date of Service: 09/06/25 Procedure(s): CT angio chest PE protocol Accession Number(s): [id number] cc: Abril Sam; [facility] Report Number: [id number]: Total DLP = 188.00 mGy-cm Reason for [...] 09/06/25 1205 DD/ 120 TD/TT: 09/06/25 120 Ethics Manager: Procedure Note Donotuseinterpreter, Image - 09/06/[address] [place] [address] [address] Scan Report Signed Patient: Isaias Delgado#: [id number] : 1970Acct:[id number] Age/Sex: 55 / MADM Date: 09/06/25 Loc: HO.ED Attending Dr: Ordering Physician: Abril Sam Date of Service: 09/06/25 Procedure(s): CT angio chest PE protocol Accession Number(s): [id number] cc: Abril Sam; [facility] Report Number: [id number]: Total DLP = 188.00 mGy-cm Reason for [...] 09/06/25 1205 DD/ 1204 TD/TT: 09/06/25 1204 Ethics Manager: [facility] External Provider IMG CT PROCEDURES Edited Result - Final * Blood Culture (Second) (09/06/2025 8:50 AM EDT) Blood Venous blood specimen / Unknown 09/06/2025 8:50 AM EDT 09/06/2025 8:54 AM EDT Comment:Blood Narrative [facility] - 09/11/2025 10:54 AM EDT Blood Culture (Second) No growth after 5 days. Specimen Source: Blood Generic External Data Provider LAB MICROBIOLOGY - GENERAL ORDERABLES Final Result Performing Organization Address [facility] Co de Phone Number [facility] [address] [place] [address] [phone] * (ABNORMAL) Sed Rate by Modified Westergren (09/06/2025 8:50 AM EDT) [facility] Erythrocyte Sedimentation Rate 46(H) 0 - 15 MM/HR [facility] Comment:Patients with polycy themia and many hemoglobin abnormalitiesmay have depressed sed rates whereas patients with anemiamay have elevated sed rates. 09/06/2025 8:50 AM EDT 09/06/2025 8:54 AM EDT Generic External Data Provider LAB BLOOD ORDERAB LES Final Result Performing Organization Address [facility] Co de Phone Number [facility] [address] [place] [address] [phone] * (ABNORMAL) C-reactive Protein (09/06/2025 8:50 AM EDT) Only the most recent of2 resultswithin the time period is included. [facility] C Reactive Protein 0.57(H) < or = 0.50 mg/dL [facility] 09/06/2025 8:50 AM EDT 09/06/2025 8:54 AM EDT us Generic External Data Provider LAB BLOOD ORDERAB LES Final Result Performing Organization Address [facility]/ZIP Co de Phone Number [facility] [address] [place] [phone] * (ABNORMAL) VENOUS BLOOD GAS (09/06/2025 8:48 AM EDT) [facility] VBG pH 7.43 7.32 - 7.43 [facility] Comment:METER #: [id number] additional_comment: Junior taylorj VBG PCO2 29 mmHg [facility] Comment:METER #: [id number] additional_comment: Cb gentilj VBG PO2 71 mmHg [facility] Comment:METER #: [id number] additional_comment: Cb gentilj VBG Base Excess -3.3 mmol/L [facility] Comment:METER #: [id number] additional_comment: Cb gentcrysj VBG HCO3 20(L) 22 - 26 mmol/L [facility] Comment:METER #: [id number] additional_comment: Cb you O2 Sat, Demetrio 92.0 % [facility] Comment:METER #: [id number] additional_comment: Cb you 09/06/2025 8:48 AM EDT 09/06/2025 8:51 AM EDT us Generic External Data Provider LAB BLOOD ORDERAB LES Final Result Performing Organization Address [facility] Co de Phone Number [facility] [address] [place] [phone] * Influenza A B2 ID NOW (Yarbrough) (09/06/2025 8:42 AM EDT) Pathologist [facility] IDNOW SERIAL# [id number] [facility] Influenza A Negative Negative [facility] Influenza B2 Negative Negative [facility] Influenza A B2 Note See Note [facility] Comment:The Yarbrough ID NOW In [...] LAB MICROBIOLOGY - GENERAL ORDERABLES Final Result [facility] [address] [place] [phone] * COVID-19 ID NOW (YARBROUGH) (09/06/2025 8:42 AM EDT) IDNOW SERIAL# [id number] [facility] COVID-19 TEST Negative Negative [facility] COVID-19 NOTE See Note [facility] Comment: Results are for the identification of SARS-CoV2 RNA. TheSARS-CoV2 RNA is generally detectable in respiratory samplesduring the acute phase of infection. Positive results areindicative of the presence of SARS-CoV-2 RNA; clinicalcorrelation with patient history and other diagnosticinformation is necessary to determine patient infectionstatus. Positive results do not rule out bacterial infectionor co- infection with other viruses.Testing facilities within the [facility] and itsterritories are required to report all [...] use by authorized laboratories.Testing performed on the [employer] ID NOW utilizing NAAT. 09/06/2025 8:42 AM EDT 09/06/2025 8:46 AM EDT Generic External Data Provider LAB MOLECULAR YAO GNOSTICS ORDERABLES Final Result Performing Organization Address [facility]/ZIP Co de Phone Number [facility] [address] [place] [phone] * Blood Culture (First) (09/06/2025 8:41 AM EDT) Blood Venous blood specimen / Unknown 09/06/2025 8:41 AM EDT 09/06/2025 8:46 AM EDT Comment:Blood Narrative [facility] - 09/11/2025 10:47 AM EDT Blood Culture (First) No growth after 5 days. Specimen Source: Blood Generic External Data Provider LAB MICROBIOLOGY - GENERAL ORDERABLES Final Result Performing Organization Address [facility] Co de Phone Number [facility] [address] [place] [phone] * Urinalysis, Complete, with Reflex to Culture (09/06/2025 8:41 AM EDT) Color Urine Yellow [facility] Appearance Urine Clear [facility] PH 6.5 5.0 - 9.0 [facility] Glucose Urine UA Negative Negative mg/dL [facility] Urine Blood Negative Negative [facility] Specific [place] - Urine 1.010 1.005 - 1.025 [facility] Urine Protein Negative Neg-Trace mg/dL [facility] Urine Ketones Negative Negative mg/dL [facility] Nitrite Urine Negative Negative [facility] Leukocyte Esterase Urine Negative Negative [facility] RBC Urine 0-2 0 - 2 /HPF [facility] Urine WBC 0-5 0 - 5 /HPF [facility] Urine Squamous Epithelial Cell 0-2 0 - 2 /HPF [facility] Urine Bacteria None Seen None Seen [facility] Hyaline Casts, Urine 0-2 0 - 2 /LPF [facility] 09/06/2025 8:41 AM EDT 09/06/2025 8:46 AM EDT Narrative [facility] - 09/06/2025 8:58 AM EDT [id number], Clean Catch Generic External Data Provider LAB URINE ORDERAB LES Final Result Performing Organization Address [facility] Co de Phone Number [facility] [address] [place] [phone] * (ABNORMAL) Lactic Acid (09/06/2025 5:29 AM EDT) Only the most recent of4 resultswithin the time period is included. Lactic Acid 2.4(HH) 0.5 - 2.0 mmol/L [facility] Comment:Critical value for t est(s):LACTIC ACID Results called toand read back by: ELIU Person calling:AMINATA Date:09/06/25 Time:0558 09/06/2025 5:29 AM EDT 09/06/2025 5:33 AM EDT Generic External Data Provider LAB BLOOD ORDERAB LES Final Result Performing Organization Address [facility]/ZIP Co de Phone Number [facility] [address] [place] [phone] * XR Chest 1 View (09/06/2025 12:54 AM EDT) Only the most recent of6 resultswithin the time period is included. Anatomical Region Laterality Modality Chest Radiographic Lamar ging 09/06/2025 12:5 4 AM EDT Narrative 09/06/2025 12:57 AM EDT [address] [address] XRay Report Signed Patient: Charbel Delgado MR#: [id number] : 1970 Acct:[id number] Age/Sex: 55 / M ADM Date: 09/06/25 Loc: HO.ED Attending Dr: Ordering Physician: David Galvez PA-C Date of Service: 09/06/25 Procedure(s): XR chest 1V Accession Number(s): [id number] cc: [facility]; David Galvez PA-C Reason for Exam: [...] MD in OV> 09/06/2555 DD/ TD/TT: 09/06/2553 Ethics Manager: Procedure Note Donotuseinterpreter, Image - 09/06/[address] [address] XRay Report Signed Patient: Rod DelgadoR#: [id number] : 1970Acct:[id number] Age/Sex: 55 / MADM Date: 09/06/25 Loc: .ED Attending Dr: Ordering Physician: David Galvez PA-C Date of Service: 09/06/25 Procedure(s): XR chest 1V Accession Number(s): [id number] cc: [facility]; David Galvez PA-C Reason for Exam: [...] MD in OV> 09/06/2555 DD/ TD/TT: 09/06/2553 Ethics Manager: [facility] External Provider IMG XR PROCEDURES Final Result * Slide Review (09/06/2025 12:46 AM EDT) Only the most recent of4 resultswithin the time period is included. Slide Review VERIFIED [facility] 09/06/2025 12:4 6 AM EDT 09/06/2025 12:51 AM EDT Generic External Data Provider LAB BLOOD ORDERAB LES Final Result Performing Organization Address [facility] de Phone Number [facility] [address] [place] [phone] * HOLD LT BLUE - POSSIBLE COAG (09/06/2025 12:46 AM EDT) Only the most recent of2 resultswithin the time period is included. Hold Lt Blue - Possible Coag SEE NOTE [facility] Comment:Specimen will be hel d untested for 4 hours. Call Hematologyif testing is desired. 09/06/2025 12:4 6 AM EDT 09/06/2025 12:54 AM EDT Generic External Data Provider LAB BLOOD ORDERAB LES Final Result Performing Organization Address [facility] Co de Phone Number [facility] [address] [place] [phone] * Ethanol (09/06/2025 12:46 AM EDT) Only the most recent of6 resultswithin the time period is included. ETHANOL (MG/DL) IN SER/PLAS 153 mg/dL [facility] Comment:Serum/plasma ethanol results are to be used formedical/treatment purposes only. 09/06/2025 12:4 6 AM EDT 09/06/2025 12:51 AM EDT Generic External Data Provider LAB BLOOD ORDERAB LES Final Result Performing Organization Address [facility] Co de Phone Number [facility] [address] [place] [phone] * NT-proBNP (09/06/2025 12:46 AM EDT) Only the most recent of3 resultswithin the time period is included. Pathologist [facility] NT-proBNP 62.2 <300 pg/mL [facility] Comment:Reference Range:Age Group (years) NT-proBNP (pg/ml) InterpretationAll <300 Negative: HF unlikelyFor patients presenting to the ED with clinical suspicion ofnew onset or worsening HF, see below:18 to <50 >299.9 to <450.0 Grayzone: [id number] to 75 >299.9 to <900.0 other causes of>75 >299.9 to <1800.0 NT-proBNP [id number] to <50 >449.9 Positive: HF [id number] >899.9>75 >1799.9Note: Elevated NT-proBNP levels should be interpreted inthe context of other clinical information. 09/06/2025 12:4 6 AM EDT 09/06/2025 12:51 AM EDT us Generic External Data Provider LAB BLOOD ORDERAB LES Final Result Performing Organization Address [facility]/ZIP Co de Phone Number [facility] [address] [place] [phone] * (ABNORMAL) CBC auto differential (09/06/2025 12:46 AM EDT) Only the most recent of6 resultswithin the time period is included. White Blood Count 3.9(L) 4.8 - 10.8 X10*3/uL [facility] Red Blood Count 3.33(L) 4.60 - 5.80 X10*6/uL [facility] Hemoglobin 10.1(L) 14.0 - 18.0 g/dl [facility] Hematocrit 31.6(L) 42.0 - 52.0 % [facility] Mean Corpuscular Volume 94.9 80.0 - 98.0 fL [facility] Mean Corpuscular Hemoglobin 30.3 27.0 - 33.0 pg [facility] Mean Corpuscular HGB Conc 32.0 31.0 - 36.0 g/dl [facility] Red Cell Distribution Width 16.9(H) 11.0 - 16.0 % [facility] Platelet Count 50(L) 160 - 400 X10*3/uL [facility] Neutrophils Percent Auto 65.9 45 - 73 % [facility] Imm Gran Pct Auto 1.3(H) 0.0 - 0.4 % [facility] Lymphocytes Percent Auto 18.7(L) 20 - 40 % [facility] Monocytes Percent Auto 10.5 2 - 11 % [facility] Eosinophils Percent Auto 2.6 0 - 4 % [facility] Basophils Percent Auto 1.0 0 - 2 % [facility] NRBC Pct Auto 0.0 0.0 - 0.2 /100WBC [facility] Neutrophils Absolute Auto 2.6 2.0 - 8.3 x10*3/uL [facility] Imm Gran Abs Auto 0.05(H) 0.00 - 0.03 X10*3/uL [facility] Lymphocytes Absolute Auto 0.7(L) 1.2 - 4.9 X10*3/uL [facility] Monocytes Absolute Auto 0.4 0.1 - 1.2 X10*3/uL [facility] Eosinophils Absolute Auto 0.1 0.0 - 0.4 X10*3/uL [facility] Basophils Absolute Auto 0.0 0.0 - 0.2 X10*3/uL [facility] NRBC Abs Auto 0.000 0.0 - 0.012 X10*3/uL [facility] 09/06/2025 12:4 6 AM EDT 09/06/2025 12:51 AM EDT Generic External Data Provider LAB BLOOD ORDERAB LES Edited Result - Final Performing Organization Address [facility] de Phone Number [facility] [address] [place] [address] [phone] * (ABNORMAL) Lactic Acid (09/06/2025 12:46 AM EDT) Only the most recent of3 resultswithin the time period is included. Pathologist [facility] Lactic Acid 2.2(HH) 0.5 - 2.0 mmol/L [facility] Comment:Critical value for t est(s): LACTIC ACID Results called toand read back by: NEFTALI Person calling:ALEate:09/06/25 Time:0113 09/06/2025 12:4 6 AM EDT 09/06/2025 12:51 AM EDT Generic External Data Provider LAB BLOOD ORDERAB LES Final Result Performing Organization Address [facility] Co de Phone Number [facility] [address] [place] [phone] * (ABNORMAL) Comprehensive Metabolic Panel (09/06/2025 12:46 AM EDT) Only the most recent of6 resultswithin the time period is included. Sodium 139 135 - 145 mmol/L [facility] Potassium 3.8 3.3 - 5.1 mmol/L [facility] Chloride 109(H) 96 - 108 mmol/L [facility] Carbon Dioxide 19(L) 22 - 29 mmol/L [facility] Anion Gap 15 12 - 20 [facility] Urea Nitrogen (BUN) 17(H) 9 - 16 mg/dL [facility] Creatinine, Serum 1.03 0.5 - 1.4 mg/dL [facility] Creatinine Clr Calc Pharmacy 66.8 [facility] Comment:eGFR (calculated fro m the MDRD study equation) and eCrCl(calculated from the Cockcroft-Gault equation) are based ondifferent parameters and may not yield comparable results.If eCrCl result is absurd, please check patient'sheight/weight. Estimated Glomerular Filt Rate >60 [facility] Comment:Chronic Kidney Disea se: Estimated GFR < 60 mL/min/1.84p9Vyvtrf Kidney Disease: Estimated GFR < 15 mL/min/1.73m2 Glucose 92 60 - 115 mg/dL [facility] Calcium 8.5 8.4 - 10.2 mg/dL [facility] Bilirubin, Total 0.4 0.0 - 1.0 mg/dL [facility] Aspartate Amino Transferase 36 5 - 37 U/L [facility] Alanine Aminotransferase 9 0 - 40 U/L [facility] Total Protein 7.9 6.5 - 8.0 g/dL [facility] Albumin Level 3.4(L) 3.5 - 5.0 g/dL [facility] Alkaline Phosphatase 113 39 - 117 U/L [facility] 09/06/2025 12:4 6 AM EDT 09/06/2025 12:51 AM EDT us Generic External Data Provider LAB BLOOD ORDERAB LES Final Result [facility] [address] [place], [place] [phone] * High Sensitivity Troponin I (09/03/2025 2:15 PM EDT) Only the most recent of4 resultswithin the time period is included. TROPONIN I HIGH SENSITIVITY <2.7 <3.5 - 35.0 ng/L [facility] Comment:The Yarbrough high sens itivity Troponin-I results should beused in conjunction with other diagnostic information suchas ECG, clinical observations and information, and patientsymptoms to aid in the diagnosis of [place]. 09/03/2025 2:15 PM EDT 09/03/2025 2:18 PM EDT us Generic External Data Provider LAB BLOOD ORDERAB LES Final Result Performing Organization Address City/State/[facility] Co de Phone Number [facility] [address] [place] [phone] * XR Chest 2 Views (09/03/2025 12:15 PM EDT) Only the most recent of2 resultswithin the time period is included. Anatomical Region Laterality Modality Chest Radiographic Lamar ging 09/03/2025 12:1 5 PM EDT Narrative 09/03/2025 12:34 PM EDT [address] [address] XRay Report Signed Patient: Charbel Delgado MR#: [id number] : 1970 Acct:[id number] Age/Sex: 55 / M ADM Date: 09/03/25 Loc: HO.ED Attending Dr: Ordering Physician: Johanna Liao Date of Service: 09/03/25 Procedure(s): XR chest 2V Accession Number(s): [id number] cc: [facility]; Johanna Liao Reason for Exam: hypoxic [...] 09/03/25 1231 DD/ 1215 TD/TT: 09/03/25 122 Ethics Manager: Procedure Note Donotuseinterpreter, Image - 09/03/[address] [address] XRay Report Signed Patient: Isaias Delgado#: [id number] : 1970Acct:[id number] Age/Sex: 55 / MADM Date: 09/03/25 Loc: .ED Attending Dr: Ordering Physician: Johanna Liao Date of Service: 09/03/25 Procedure(s): XR chest 2V Accession Number(s): [id number] cc: [facility]; Johanna Liao Reason for Exam: hypoxic [...] 09/03/25 1231 DD/ 1215 TD/TT: 09/03/25 1225 Ethics Manager: us [facility] External Provider IMG XR PROCEDURES Final Result * Hold Lavender - Possible Hematology (09/03/2025 11:54 AM EDT) Hold Lavender - Possible Hematololgy SEE NOTE [facility] Comment:Specimen will be hel d untested for 8 hours. Call Hematologyif testing is desired. 09/03/2025 11:5 4 AM EDT 09/03/2025 12:02 PM EDT Generic External Data Provider HISTORICAL/NON OR DERABLE LABS Final Result Performing Organization Address [facility]/ZIP Co de Phone Number [facility] [address] [place] [phone] * Magnesium (09/03/2025 11:54 AM EDT) Only the most recent of3 resultswithin the time period is included. Magnesium 1.7 1.6 - 2.6 mg/dL [facility] 09/03/2025 11:5 4 AM EDT 09/03/2025 12:03 PM EDT Generic External Data Provider LAB BLOOD ORDERAB LES Final Result Performing Organization Address [facility] Co de Phone Number [facility] [address] [place] [address] [phone] * Lipase (09/03/2025 11:54 AM EDT) Only the most recent of2 resultswithin the time period is included. Lipase 25 8 - 78 U/L [facility] 09/03/2025 11:5 4 AM EDT 09/03/2025 12:03 PM EDT Generic External Data Provider LAB BLOOD ORDERAB LES Final Result Performing Organization Address [facility] Co de Phone Number [facility] [address] [place] [phone] * Urinalysis w/reflex microscopic (08/21/2025 11:09 PM EDT) Color Urine Dark Yellow [facility] Appearance Urine Clear [facility] PH 5.0 5.0 - 9.0 [facility] Glucose Urine UA Negative Negative mg/dL [facility] Urine Blood Negative Negative [facility] Specific [place] - Urine 1.015 1.005 - 1.025 [facility] Urine Protein Negative Neg-Trace mg/dL [facility] Urine Ketones Negative Negative mg/dL [facility] Nitrite Urine Negative Negative [facility] Leukocyte Esterase Urine Negative Negative [facility] 08/21/2025 11:0 9 PM EDT 08/21/2025 11:13 PM EDT Narrative [facility] - 08/21/2025 11:16 PM EDT [id number], Clean Catch us Generic External Data Provider LAB URINE ORDERAB LES Final Result [facility] [address] [place] [address] [phone] * (ABNORMAL) Lipid Panel, Standard (08/21/2025 8:16 PM EDT) Triglycerides 62 <150 mg/dL [facility] Comment:Desirable Triglyceri de: less than 150 mg/dLBorderline High Triglyceride 150-199 mg/dLHigh Triglyceride: 200-499 mg/dLVery High Triglyceride: greater than or equal to 5OO mg/dL Cholesterol 118 <200 mg/dL [facility] Comment:Desirable Cholestero l: less than 200 mg/dLBorderline High Cholesterol: 200-239 mg/dLHigh Cholesterol: greater than 239 mg/dL LDL Cholesterol Calculated 77 <100 mg/dL [facility] Comment:Desirable LDL: less than 100 mg/dLNear Optimal/Above Optimal LDL: 110- 129 mg/dLBorderline High LDL: 130-159 mg/dLHigh LDL: 160-189 mg/dLVery High LDL: greater than or equal to 190 mg/dL HDL Cholesterol 29(L) >40 mg/dL [facility] Comment:Desirable HDL: great er than 40 mg/dL Note: This HDL assay may give artificially low results in patients with liver disease. 08/21/2025 8:16 PM EDT 08/21/2025 8:22 PM EDT us Generic External Data Provider LAB BLOOD ORDERAB LES Final Result [facility] [address] [place] [phone] * XR Foot 3+ Views Right (08/15/2025 8:10 AM EDT) Anatomical Region Laterality Modality Lower Extremities, Foot Right Radiogra phic Imaging 08/15/2025 8:10 AM EDT Narrative 08/15/2025 8:34 AM EDT [address] [address] XRay Report Signed Patient: Charbel Delgado MR#: [id number] : 1970 Acct:[id number] Age/Sex: 55 / M ADM Date: 08/15/25 Loc: [place] [address]: Yazmin WALLACE Ordering Physician: Yazmin Shafer Date of Service: 08/15/25 Procedure(s): XR foot RT min 3V Accession Number(s): [id number] cc: Yazmin Shafer; [facility] Reason for Exam: right foot pain [...] in OV> 08/15/2531 DD/ 9 TD/TT: 08/15/25819 Ethics Manager: Procedure Note Donotuseinterpreter, Image - 08/15/2025 [place] [address] XRay Report Signed Patient: Isaias Delgado#: [id number] : 1970Acct:[id number] Age/Sex: 55 / MADM Date: 08/15/25 Loc: [facility]: Yazmin WALLACE Ordering Physician: Yazmin Shafer Date of Service: 08/15/25 Procedure(s): XR foot RT min 3V Accession Number(s): [id number] cc: Yazmin Shafer; [facility] Reason for Exam: right foot pain [...] in OV> 08/15/2531 DD/ 9 TD/TT: 08/15/25819 Ethics Manager: [facility] External Provider IMG XR PROCEDURES Final Result * (ABNORMAL) Drug Monitoring, Panel 1, Screen, Urine (07/06/2025 6:08 PM EDT) Opiate Screen Urine Not Detected Not Detect [facility] Comment:Opiate cut-off is 30 0 ng/mL.Positive results are unconfirmed and should not be used fornon-medical purposes. Barbiturates, Urine POSITIVE(A) Not Detect [facility] Comment:Barbiturate cut-off is 200 ng/mL.Positive results are unconfirmed and should not be used fornon-medical purposes. Phencyclidine Screen Urine Not Detected Not Detect [facility] Comment:Phencyclidine cut-of f is 25 ng/mL.Positive results are unconfirmed and should not be used fornon-medical purposes. Amphetamine Screen Urine Not Detected Not Detect [facility] Comment:Amphetamine cut-off is 1000 ng/mL.Positive results are unconfirmed and should not be used fornon-medical purposes. Benzodiazepines Screen Urine Not Detected Not Detect [facility] Comment:Benzodiazepine cut-o ff is 200 ng/mL.Positive results are unconfirmed and should not be used fornon-medical purposes. Cocaine Screen Urine Not Detected Not Detect [facility] Comment:Cocaine cut-off is 3 00 ng/mL.Positive results are unconfirmed and should not be used fornon-medical purposes. Cannabinoid Screen Urine Not Detected Not Detect [facility] Comment:Cannabinoid cut-off is 50 ng/mL.Positive results are unconfirmed and should not be used fornon-medical purposes. Methadone Screen, Urine Not Detected Not Detect ng/mL [facility] Comment:Methadone cut-off is 300 ng/mL.Positive results are unconfirmed and should not be used fornon-medical purposes. FENTANYL URINE Not Detected Not Detect [facility] Comment:Fentanyl cut-off is 1 ng/mL.Positive results are unconfirmed and should not be used fornon-medical purposes. Oxycodone Urine Screen Not Detected Not Detect ng/mL [facility] Comment:Oxycodone cut-off is 100 ng/mL.Positive results are unconfirmed and should not be used fornon-medical purposes. Buprenorphine Screen Not Detected Not Detect ng/mL [facility] Comment:Buprenorphine cut-of f is 5 ng/mL.Positive results are unconfirmed and should not be used fornon-medical purposes. 07/06/2025 6:08 PM EDT 07/06/2025 6:11 PM EDT Generic External Data Provider LAB URINE ORDERAB LES Final Result Performing Organization Address [facility]/ZIP Co de Phone Number [facility] [address] [place] [phone] * B Type Natriuretic Peptide (BNP) (07/06/2025 5:58 PM EDT) Only the most recent of2 resultswithin the time period is included. B Type Natriuretic Peptide 100 <100 pg/mL [facility] 07/06/2025 5:58 PM EDT 07/06/2025 6:06 PM EDT Generic External Data Provider LAB BLOOD ORDERAB LES Final Result Performing Organization Address [facility] Co de Phone Number [facility] [address] [place] [phone] * CT Chest w/ Contrast (06/19/2025 4:46 AM EDT) Anatomical Region Laterality Modality Body, Chest Computed Tomogra phy 06/19/2025 4:46 AM EDT Narrative 06/19/2025 4:48 AM EDT [address] [address] [address] Scan Report Signed Patient: Charbel Delgado MR#: [id number] : 1970 Acct:[id number] Age/Sex: 55 / M ADM Date: 06/19/25 Loc: [facility]: Mercedes Hogan MD Ordering Physician: David Galvez PA-C Date of Service: 06/19/25 Procedure(s): CT chest w IV con Accession Number(s): [id number] cc: [facility]; David Galvez PA-C Report Number: [id number]: Total DLP = 265.00 mGy-cm CLINICAL HISTORY: [...] in OV> 06/19/25446 DD/ 5 TD/TT: 06/19/25445 Ethics Manager: Procedure Note Donotuseinterpreter, Image - 06/19/[address] [address] [address] Scan Report Signed Patient: Isaias Delgado#: [id number] : 1970Acct:[id number] Age/Sex: 55 / MADM Date: 06/19/25 Loc: [facility]: Mercedes Hogan MD Ordering Physician: David Galvez PA-C Date of Service: 06/19/25 Procedure(s): CT chest w IV con Accession Number(s): [id number] cc: [facility]; David Galvez PA-C Report Number: [id number]: Total DLP = 265.00 mGy-cm CLINICAL HISTORY: [...] signed by Oskar Tariq MD in OV> 08/06/06 447 DD/ 5 TD/TT: 06/19/25445 Ethics Manager: [facility] External Provider IMG CT PROCEDURES Edited Result - Final from Last [address] [facility] [place] [facility] C3 [place], [place] Care Teams Wood Patternmaker Apprentice Relationship Specialty Start Date End Date Charbel Calles RN [address] [place] [phone] Registered Nurse Family Medicine 09/11/25 Conor Vidal 09/11/25
--- OUTSIDE RECORDS SUMMARY | 2025-09-12 20:38 | XMS_ITS | Encounter Summary ---
Author Organization [facility] Address [address] [facility] [address] [place] [phone] Phone Care Team Providers Care Enologist Name Role Phone Elbert Hayward MD Primary Care Provider [facility], [facility] Primary Care Provider Pcp, Unknown Unavailable Unavailable Encounter Details Date Type Department Care Team (Late st Contact Info) Description 10/06/2023 Procedure Pass [facility], Ct Scan - [address] [address] Social History Tobacco Use Types Packs/Day Years [...] on filedocumented in this encounter Care Teams Enologist Relationship Specialty Start Date End Date Elbert Hayward MD PCP - General 05/13/14 10/06/23 [facility], MD Marya [address] [place] [address] PCP - General 10/07/23 Pcp, Unknown 10/07/23 documented as of this encounter Additional Source Comments The information contained in this document represents components of the legal health record. It is not the complete legal health record.[facility]
--- OUTSIDE RECORDS SUMMARY | 2025-09-12 20:38 | XMS_ITS | Encounter Summary ---
Author Organization [facility] Address [address] [facility] [address] [place] [address] Phone Care Team Providers Care Fur Floor Worker Name Role Phone [facility], [facility] Primary Care Provider Pcp, Unknown Unavailable Unavailable Encounter Details Date Type Department Care Team (Late st Contact Info) Description 02/02/2024 Procedure Pass [facility] Admitting Dept Virtual Department [address] [place] [address] Social History Tobacco Use Types Packs/Day Years [...] on filedocumented in this encounter Care Teams Fur Floor Worker Relationship Specialty Start Date End Date [facility] [address] [place] [address] PCP - General 10/07/23 Pcp, Unknown 10/07/23 documented as of this encounter Additional Source Comments The information contained in this document represents components of the legal health record. It is not the complete legal health record.[facility]
--- OUTSIDE RECORDS SUMMARY | 2025-09-12 20:38 | XMS_ITS ---
Author Organization [facility] Address [address] [place] [address] 7 [place] [address] Care Team Providers Care Coin Rolling Machine Operator Name Role Phone Charbel Calles RN Unavailable [phone] Conor Vidal Unavailable CHW Complex Status:Outreach In Progress (Enrolling) Start date:09/11/2025 Enrollment reason:ADT Feed Overview ED- Pt went to [facility] ED on 09/10/25. Case Team Name Relationship Phone Conor Vidal(Responsible Staff) [phone] Continued Care and Services Coordination
--- OUTSIDE RECORDS SUMMARY | 2025-09-12 20:38 | XMS_ITS | Encounter Summary ---
Author Organization [facility] Address [address] [place] [address] [place] [address] Care Team Providers Care Building Contractor Name Role Phone Charbel Calles RN Unavailable [phone] Conor Vidal Unavailable Encounter Details Date Type Department Care Team (Latest Contact Info) Description 09/08/2025 Results [facility] Information Management [address] [place] [address] External Provider, [facility] CTA Chest PE Protocal, XR Chest [...] on filedocumented in this encounter Care Teams Building Contractor Relationship Specialty Start Date End Date Charbel Calles RN [address] [place] [address] Registered Nurse Family Medicine 09/11/25 Conor Vidal 09/11/25 documented as of this encounter
--- OUTSIDE RECORDS SUMMARY | 2025-09-12 20:39 | XMS_ITS | Encounter Summary ---
Author Organization [facility] Address [address] [place] [address] 7 [place] [address] Care Team Providers Care Nutrition Consultant Name Role Phone Charbel Calles RN Unavailable [phone] Conor Vidal Unavailable Encounter Details Date Type Department Care Team ([facility] st Contact Info) Description 09/11/2025 Patient Outreach [facility] MED & PEDS [address] [place], [place] [phone] Edith Zuniga RN Social History Tobacco Use [...] care. Emergency Room Visit Date: 09/10/25 Facility: [facility] Diagnosis: ETOH Disposition: Discharged home Discharge summary in the chart: Yes Please contact for a telehealth RN visit documented in this encounter Plan of Treatment Not on file documented as of this encounter Visit Diagnoses Not on filedocumented in this encounter Care Teams Nutrition Consultant Relationship Specialty Start Date End Date Charbel Calles RN [address] [place] [address] Registered Nurse Family Medicine 09/11/25 Conor Vidal 09/11/25 documented as of this encounter
--- OUTSIDE RECORDS SUMMARY | 2025-09-12 20:39 | XMS_ITS | Encounter Summary ---
Author Organization [facility] [facility] Address [address] [place] [address] [place] [address] Care Team Providers Care Door To Door Salesman Name Role Phone Charbel Calles RN Unavailable [phone] Conor Vidal Unavailable Reason for Visit * Reason Comments Care Coordination C3CM- chart review Encounter Details Date Type Department Care Team (Latest Contact Info) Description 09/11/2025 Patient Outreach [facility] MED & PEDS [address] [place], [place] [phone] Charbel Calles RN [address] [place] [address] Care Coordination (C3CM- chart review) Social History [...] months include C 09/10/25, C 09/03- 09/05/25, [facility] 08/15-08/21/25, [facility] 07/30/25, [facility] 07/18/25, [facility] 07/13-07/16/25, etc. Last appointment in PCP office on 05/08/25. Need GAS PLANT TECHNICIAN appointment. documented in this encounter Plan of Treatment Not on file documented as of this encounter Visit Diagnoses Not on filedocumented in this encounter Care Teams Door To Door Salesman Relationship Specialty Start Date End Date Charbel Calles RN [address] [place] [address] Registered Nurse Family Medicine 09/11/25 Conor Vidal 09/11/25 documented as of this encounter
--- OUTSIDE RECORDS SUMMARY | 2025-09-12 20:39 | XMS_ITS | Encounter Summary ---
Author Organization [employer] Address [address] [place] [address] 7 [place] [address] Care Team Providers Care Regional Intermodal Truck Driver Name Role Phone Charbel Calles RN Unavailable [phone] Conor Vidal Unavailable Reason for Visit * Reason Comments Care Coordination C3/W Conor Pierre bere, Chart review Encounter Details Date Type Department Care Team (Latest Contact Info) Description 09/11/2025 Patient Outreach [facility] [address] [place] [address] Conor Vidal Care Coordination (C3CM/LORETAW Conor Vidal, Chart review ) Social History Tobacco [...] 09/03-09/05/25, C 08/15-08/21/25, C 07/30/25, C 07/18/25, [facility] 07/13-07/16/25, etc. Last appointment in PCP office on 05/08/25. Need HOSPITAL RECEPTIONIST appointment. documented in this encounter Plan of Treatment Not on file documented as of this encounter Visit Diagnoses Not on filedocumented in this encounter Care Teams Regional Intermodal Truck Driver Relationship Specialty Start Date End Date Charbel Calles, RN [address] [place] [address] Registered Nurse Family Medicine 09/11/25 Conor Vidal 09/11/25 documented as of this encounter
--- OUTSIDE RECORDS SUMMARY | 2025-09-12 20:39 | XMS_ITS | Clinical Summary ---
Author Organization [facility] Address [address] [facility] [address] [place] [address] Phone Care Team Providers Care Water Project Manager Name Role Phone [facility], Facility Primary Care Provider Pcp, Unknown [...] magnesia). Active monobasic and dibasic sodium phosphates (00077 ENEMA) 19-7 gram/[address] 1 [...] Patient presented with altered mental status from [facility] where he appeared more lethargic [...] EST) SODIUM 137 133 - 146 mmol/L [facility] POTASSIUM 4.5 3.3 - 5.1 mmol/L [facility] CHLORIDE 105 96 - 108 mmol/L [facility] CO2 22 21 - 35 mmol/L [facility] BUN 14 6 - 19 mg/dL [facility] CREATININE 0.80 0.5 - 1.5 mg/dL [facility] GLUCOSE 104(H) 70 - 99 mg/dL [facility] ALBUMIN 4.1 3.9 - 4.8 g/dL [facility] TOTAL PROTEIN 8.1(H) 6.5 - 8.0 g/dL [facility] CALCIUM 10.4(H) 8.4 - 10.3 mg/dL [facility] ALKALINE PHOSPHATASE 118(H) 39 - 117 U/L [facility] TOTAL BILIRUBIN 0.6 0.0 - 1.2 mg/dL [facility] AST 25 0 - 37 U/L [facility] ALT 7 0 - 40 U/L [facility] GLOBULIN 4.0 1 - 4.8 g/dL [facility] EGFR 105 >59 mL/min/1.7 3m2 [facility] Comment:Estimated glomerular filtration rate calculated using the CKD-EPI refit equation. ANION GAP 15 10 - 20 mmol/L [facility] Blood 01/04/2024 9:22 AM EST 01/04/2024 9:53 AM EST Missy WALLACE LAB BLOOD ORDERABLES Fin al Result Performing Organization Address City/[facility]/ZIP Co de Phone Number [address] [address] * Hepatitis C antibody, qualitative (01/04/2024 9:22 AM EST) HCV NON-REACTIV E NON-REACTI VE [facility] Blood 01/04/2024 9:22 AM EST 01/04/2024 9:53 AM EST Msisy WALLACE LAB BLOOD ORDERABLES Fin al Result Performing Organization Address [facility] Co de Phone Number [address] [address] from Last 3 Months or Most Recently Relevant to Health Maintenance [place] [address] [address] [place] [address] C3 [employer] [facility] C3 ACO C[employer] [facility] C3 [facility] C3 [employer] [facility] [place] [id number] [facility] C3 ACO Advance Directives For more information, please contact: [phone] (9AM - 5PM [facility], Monday-Monday) Documents on File Type Date Recorded Patient Statistical Assistant Expl anation Healthcare Proxy 10/09/2023 10:49 AM [...] Agent (Proxy form on file) Care Teams Water Project Manager Relationship Specialty Start Date End Date [facility] [address] [place] [phone] PCP - General 10/07/23 Pcp, Unknown 10/07/23 Additional Source Comments The information contained in this document represents components of the legal health record. It is not the complete legal health record.[facility]
--- OUTSIDE RECORDS SUMMARY | 2025-09-12 20:39 | XMS_ITS | Encounter Summary ---
Author Organization [employer] Address [address] [place] [address] [place] [address] Care Team Providers Care Clipper Automatic Name Role Phone Charbel Calles RN Unavailable [phone] Conor Vidal Unavailable Reason for Visit * Reason Comments Care Coordination C3CM/W Conor Pierre bere, Initial outreach call_lvm Encounter Details Date Type Department Care Team (Latest Contact Info) Description 09/11/2025 Patient Outreach [facility] MED[facility]INE [address] [place] [address] Conor Vidal Care Coordination (C3CM/LORETAW Conor Vidal, [...] this time. CHW LVM introducing herself from [facility] CM Department with CHW's name,department and direct contact number requesting call back. Will re-attempt to contact within 2 days. and address not confirmed. documented in this encounter Plan of Treatment Not on file documented as of this encounter Visit Diagnoses Not on filedocumented in this encounter Care Teams Clipper Automatic Relationship Specialty Start Date End Date Charbel Calles RN [address] [place] [address] Registered Nurse Family Medicine 09/11/25 Conor Vidal 09/11/25 documented as of this encounter
--- OUTSIDE RECORDS SUMMARY | 2025-09-12 20:39 | XMS_ITS ---
Author Organization [employer] Address [address] [place] [address] 7 [place] [address] Care Team Providers Care Delivery Representative Name Role Phone Charbel Calles RN Unavailable [phone] Conor Vidal Unavailable CM Complex Status:Outreach In Progress (Enrolling) Start date:09/11/2025 Enrollment reason:ADT Feed Overview ED- Pt went to [facility] ED on 09/10/25. Case Team Name Relationship Phone Charbel Calles RN(Responsible Staff) Registered [facility] [phone] Continued Care and Services Coordination
--- OUTSIDE RECORDS SUMMARY | 2025-09-12 20:39 | XMS_ITS | Encounter Summary ---
Author Organization [employer] Address [address] [place] [address] 7 [place] [address] Care Team Providers Care Warehouse Team Member Name Role Phone Charbel Calles RN Unavailable [phone] Conor Vidal Unavailable Encounter Details Date Type Department Care Team (Late st Contact Info) Description 09/11/2025 Patient Outreach [facility] [address] [place] [address] Jodi Cerda RN Social History Tobacco Use [...] on filedocumented in this encounter Care Teams Warehouse Team Member Relationship Specialty Start Date End Date Charbel Calles, RN [address] [place] [address] Registered Nurse Family Medicine 09/11/25 Conor Vidal 09/11/25 documented as of this encounter
--- OUTSIDE RECORDS SUMMARY | 2025-09-12 20:39 | XMS_ITS | Encounter Summary ---
Author Organization [employer] Address [address] [place] [address] [place] [address] Care Team Providers Care Wildlife Officer Name Role Phone Charbel Calles RN Unavailable [phone] Conor Vidal Unavailable Encounter Details Date Type Department Care Team (Late st Contact Info) Description 09/03/2025 Results Follow-Up [facility] Information Management [address] [place] [address] Provider, Generic External Data XR Chest 2 [...] on filedocumented in this encounter Care Teams Wildlife Officer Relationship Specialty Start Date End Date Charbel Calles RN [address] [place] [address] Registered Nurse Family Medicine 09/11/25 Conor Vidal 09/11/25 documented as of this encounter
--- NOTE | 2025-09-12 21:22 | PC.NURSE ---
pt reports L leg pain, ETOH per pt and EMS, pt lab work drawn, pt will provide a urine. IV placed in L forearm, pt tolerated well. Ot arrived on 2 L and is currently on 3 L 02 with sp02 at 92%, pt positioned in high fowlers, advised to stay upright.
[2025-09-12 21:24] LABS: MANUAL DIFF FLAG NO
[2025-09-12 21:28] LABS: Hematocrit 31.7 % (42.0-52.0); Hemoglobin 9.9 g/dl (14.0-18.0); Imm Gran Abs Auto 0.01 X10*3/uL (0.00-0.03); Imm Gran Pct Auto 0.2 % (0.0-0.4); Lymphocytes Absolute Auto 0.9 X10*3/uL (1.2-4.9); Mean Corpuscular HGB Conc 31.2 g/dl (31.0-36.0); Mean Corpuscular Hemoglobin 29.6 pg (27.0-33.0); Mean Corpuscular Volume 94.9 fL (80.0-98.0); NRBC Abs Auto 0.000 X10*3/uL (0.0-0.012); NRBC Pct Auto 0.0 /100WBC (0.0-0.2); Red Blood Count 3.34 X10*6/uL (4.60-5.80); White Blood Count 4.8 X10*3/uL (4.8-10.8)
[2025-09-12 21:30] LABS: Platelet Count 80 X10*3/uL (160-400)
[2025-09-12 21:41] LABS: Alanine Aminotransferase 11 U/L (0-40); Albumin Level 3.5 g/dL (3.5-5.0); Alkaline Phosphatase 134 U/L (39-117); Anion Gap 15 (12-20); Aspartate Amino Transferase 45 U/L (5-37); Blood Urea Nitrogen 18 mg/dL (9-16); Calcium 8.2 mg/dL (8.4-10.2); Carbon Dioxide 18 mmol/L (22-29); Chloride 111 mmol/L (96-108); Creatinine Clr Calc Pharmacy 74.4; Estimated Glomerular Filt Rate > 60; Potassium 3.8 mmol/L (3.3-5.1); Sodium 140 mmol/L (135-145); Total Protein 8.0 g/dL (6.5-8.0)
[2025-09-12 21:45] LABS: Appearance Urine Clear; Glucose Urine UA Negative (Negative); PH 5.5 (5.0-9.0); Specific Gravity - Urine 1.010 (1.005-1.025); UMIC TRIGGER UACC YES
[2025-09-12 21:48] LABS: Troponin-I High Sensitivity < 2.7 ng/L (<3.5-35.0)
[2025-09-12 21:59] LABS: Cannabinoid Screen Urine Not Detected (Not Detect)
[2025-09-12 22:01] LABS: UACC Culture Trigger YES
[2025-09-12 22:11] VITALS: BP 82/42; PULSE 79; RESP 16; TEMP 36.6; O2SAT 90
--- NOTE | 2025-09-12 22:20 | PC.NURSE ---
b/p 82/42, provider advised, order fro normal saline entered.
[2025-09-12 23:01] LABS: NT Pro B Type Natriuretic Pept 128.1 pg/mL (<300)
--- NOTE | 2025-09-12 23:10 | PC.NURSE ---
assumed care of patient from prior RN in stable condition at this time. pt sleeping in bed with no distress
--- NOTE | 2025-09-12 23:25 | ED_ITS ---
HPI - General Adult General Chief complaint: Extremity Injury, Lower Stated complaint: L leg pain Time Seen by Provider: 09/12/25 21:52 Source: patient and EMS Mode of arrival: EMS Limitations: other (Intoxicated) History of Present Illness ED Provider: Dr. Alexandria Sweeney HPI narrative: Patient comes to the emergency room by EMS. Patient was found by bystanders intoxicated. Patient admits that he has been drinking alcohol and complaining of chronic leg pain, no changes. Related Data Previous Rx's ?Medication ?Instructions ?Recorded fluticasone furoate 100 1 inh inhalation DAILY #30 e a 09/09/25 mcg/actuation blister powder for inhalation Allergies Allergy/AdvReac Type Severity Reaction Status Date / Time No Known Allergies (No Known Allergy Verified 09/12/25 20:10 Allergies*) Review of Systems 2 Review of Systems: Constitutional : No Weight loss, No Fever, No Chills, No Night Sweats, No Fatigue, No Malaise ENT/Mouth : No Hearing loss, No Ear Pain, No Nasal Congestion, No Sinus Pain, No Hoarseness, No sore throat, No Rhinorrhea, No Swallowing Difficulty Eyes: No Eye Pain, No Swelling, No Redness, No Foreign Body, No Discharge, No Vision Changes Cardiovascular : No Chest Pain, No SOB, No Dyspnea on Exertion, No Orthopnea, No Edema, No Palpitations Respiratory : No Cough, No Sputum, No Wheezing, No Smoke Exposure, No Dyspnea Gastrointestinal : No Nausea, No Vomiting, No Diarrhea, No Constipation, No abdominal Pain, No Hematochezia, No Melena Genitourinary : no irregular bleeding, No Dysuria, No Urinary Frequency, No Hematuria, No Urinary Incontinence, No Urgency, No Flank Pain, No Urinary Flow Changes, No Hesitancy Musculoskeletal : Complaining of chronic bilateral ankle pain No Myalgias, No Joint Swelling Skin : No Skin Lesions, No rash Neuro : No Weakness, No Numbness, No Paresthesias, No Loss of Consciousness, No Dizziness, No Headache Psych : No Anxiety/Panic, No Depression, No SI/HI/AH/VH, admits to alcohol abuse Heme/Lymph: No Bruising, No Bleeding,No Lymphadenopathy Endocrine : No Polyuria, No Polydipsia, No Temperature Intolerance PMFSH Past Medical History Medical History Hemorrhoids, internal, with bleeding Rectal bleeding Pancytopenia Alcohol withdrawal Alcohol use disorder, severe, dependence Pancytopenia Cirrhosis Hypomagnesemia Aspiration pneumonia Alcohol use disorder CHF (congestive heart failure) Alcohol abuse Acute hypoxemic respiratory failure Anemia Pneumonia Alcohol withdrawal syndrome Alcohol abuse Thrombocytopenia Esophageal varices Acute on chronic anemia Alcoholic liver disease Thrombocytopenia Malnutrition CHF (congestive heart failure) Anemia Thrombocytopenia Acute on chronic anemia CHF (congestive heart failure) Anemia Alcohol abuse Surgical History No history of previous surgery Social History Social History Household Members: None Household Members Other:: homeless Housing: Homeless Housing Other:: homeless Do you presently have visiting nurse or other home services: No Alcohol intake: current Alcohol intake frequency: 3 or more drinks per day Alcohol type: hard liquor Comment: pt refuse to have staff remain in [place] Patient Tobacco Use Status: Former Tobacco user Tobacco use type: Cigarette Smoked in Last 30 Days: Yes Second Hand Smoke Exposure: No Advance Directives: Yes Advance Directives on File: Yes Advance Directives Date on File: 07/13/23 service: No Physical Exam ED Exam Exam: Appearance: Alert. Oriented X3. No acute distress. Patient admits that he has been drinking alcohol. Eyes: Pupils equal, round and reactive to light. ENT: Pharynx normal. Neck: Normal inspection. Neck supple. No lymph nodes noted. No crepitus CVS: Normal heart rate and rhythm. Pulses normal. Normal S1 and S2 Respiratory: No respiratory distress. Breath sounds normal. No Wheezing. No rales Abdomen: Soft and nontender. No rigidity. No distention. Skin: Skin warm and dry. Normal skin color. Normal skin turgor. Extremities: No lower extremity edema. No Lacerations. No Rash Neuro: Oriented X 3. No motor deficit. No sensory deficit. Moving all extremities. No slurred speech. CN 2 through 12 grossly intact Psych: calm, cooperative, normal affect Vital Signs: Vital Signs - 24 hr 09/12/25 20:13 09/12/25 22:11 09/13/25 00:00 Temperature 98.4 F 97.8 F 97.8 F Pulse Rate 83 79 78 Respiratory Rate 16 16 17 Blood Pressure 111/62 82/42 L 101/50 L Pulse Oximetry 83 L 90 L 90 L Oxygen Delivery Method Nasal Cannula Nasal Cannula Oxymask Simple Mask Oxygen Flow Rate 2 2 4 09/13/25 00:57 Temperature Pulse Rate 78 Respiratory Rate 16 Blood Pressure 102/50 L Pulse Oximetry 93 Oxygen Delivery Method Simple Mask Oxygen Flow Rate 4 BMI result Body Mass Index 28.3 Medications Administered Discontinued Medications Generic Name Dose Route Start Last Admin Trade Name Freq PRN Reason Stop Dose Admin Sodium Chloride 1,000 mls @ 999 mls/hr 09/12/25 22:30 09/13/25 00:07 Ns IV 09/12/25 23:30 Infused .Q1H1M JOSE MANUEL Infusion Medical Decision Making Medical Decision Making [facility] Narrative: My interpretation of labs: No abnormality in patient's hematology or chemistry Chest x-ray: Pneumonitis per Radiology Pro BNP negative, unlikely to be pulmonary edema. Ambulation trial pending, Sign-out given to my colleague Dr. Herrera Lab Data 09/12/25 21:19 09/12/25 21:19 Labs: Lab Results 09/12/25 09/12/25 Range/Units 21:19 21:30 WBC 4.8 (4.8-10.8) X10*3/uL RBC 3.34 L (4.60-5.80) X10*6/uL Hgb 9.9 L (14.0-18.0) g/dl Hct 31.7 L (42.0-52.0) % MCV 94.9 (80.0-98.0) fL MCH 29.6 (27.0-33.0) pg MCHC 31.2 (31.0-36.0) g/dl RDW 17.2 H (11.0-16.0) % Plt Count 80 L (160-400) X10*3/uL MPV 12.1 (9.4-12.4) fL Immature Gran % (Auto) 0.2 (0.0-0.4) % Neut % (Auto) 65.3 (45-73) % Lymph % (Auto) 19.2 L (20-40) % Gilliam % (Auto) 8.6 (2-11) % Eos % (Auto) 5.2 H (0-4) % Baso % (Auto) 1.5 (0-2) % Lymph # (Auto) 0.9 L (1.2-4.9) X10*3/uL Gilliam # (Auto) 0.4 (0.1-1.2) X10*3/uL Eos # (Auto) 0.3 (0.0-0.4) X10*3/uL Baso # (Auto) 0.1 (0.0-0.2) X10*3/uL Abs Immat Gran (auto) 0.01 (0.00-0.03) X10*3/uL Absolute Neuts (auto) 3.1 (2.0-8.3) x10*3/uL Absolute Nucleated RBC 0.000 (0.0-0.012) X10*3/uL Nucleated RBC % (auto) 0.0 (0.0-0.2) /100WBC Sodium 140 (135-145) mmol/L Potassium 3.8 (3.3-5.1) mmol/L Chloride 111 H (96-108) mmol/L Carbon Dioxide 18 L (22-29) mmol/L Anion Gap 15 (12-20) BUN 18 H (9-16) mg/dL Creatinine 0.99 (0.5-1.4) mg/dL Estim Creat Clear Calc 74.4 Estimated GFR > 60 Random Glucose 89 (60-115) mg/dL Calcium 8.2 L (8.4-10.2) mg/dL Total Bilirubin 0.3 (0.0-1.0) mg/dL AST 45 H (5-37) U/L ALT 11 (0-40) U/L Alkaline Phosphatase 134 H (39-117) U/L Troponin I High Sens < 2.7 (<3.5-35.0) ng/L NT-Pro-B Natriuret Pep 128.1 (<300) pg/mL Total Protein 8.0 (6.5-8.0) g/dL Albumin 3.5 (3.5-5.0) g/dL Urine Color Yellow Urine Appearance Clear Urine pH 5.5 (5.0-9.0) Ur Specific [place] 1.010 (1.005-1.025) Urine Protein Negative (Neg-Trace) mg/dL Urine Glucose (UA) Negative (Negative) mg/dL Urine Ketones Negative (Negative) mg/dL Urine Blood Negative (Negative) Urine Nitrite Negative (Negative) Ur Leukocyte Esterase Small (1+) H (Negative) Urine RBC 0-2 (0-2) /HPF Urine WBC 0-5 (0-5) /HPF Ur Squamous Epith Cells 0-2 (0-2) /HPF Urine Bacteria None Seen (None Seen) Hyaline Casts 0-2 (0-2) /LPF Urine Opiates Screen Not Detected (Not Detect) Ur Buprenorphine Scrn Not Detected (Not Detect) ng/mL Ur Oxycodone Screen Not Detected (Not Detect) ng/mL Urine Methadone Screen Not Detected (Not Detect) ng/mL Urine Fentanyl Screen Not Detected (Not Detect) Ur Barbiturates Screen POSITIVE H (Not Detect) Ur Phencyclidine Scrn Not Detected (Not Detect) Ur Amphetamines Screen Not Detected (Not Detect) U Benzodiazepines Scrn Not Detected (Not Detect) Urine Cocaine Screen Not Detected (Not Detect) U Marijuana (THC) Screen Not Detected (Not Detect) Discharge Plan Discharge Clinical Impression: Leg pain Patient Disposition: Home, Self-Care Instructions: Leg Pain (ED) Additional Instructions: Alcohol use disorder You were seen in the Emergency Department today for treatment of alcohol use disorder.? You may have been given medications to help with your withdrawal symptoms.? Please do not drink alcohol with them. This is very dangerous and can cause respiratory depression or other adverse reactions depending on the medication. If you would like to cut down or stop your alcohol use please consider calling our outpatient Addiction Treatment office:? [facility] (M-F [id number]) [address] [place] [address] You have also been given a list of treatment providers in the area that can assist as well.? If you experience seizures, vomiting blood, black stools, falls, severe headache, chest pain, fevers, trouble breathing, hallucinations or any other concerns you need to call 911 or seek immediate care. Please stay hydrated. Prescriptions: No Action fluticasone furoate 100 mcg/actuation blister with device 1 inh inhalation DAILY Qty: 30 0RF Referrals: [facility] [Primary Care Provider, Medical] Print Language: Greek
--- NOTE | 2025-09-12 23:35 | PC.NURSE ---
pt desatting to 87-88 on NC, sleeping at this time - changed to oxymask at 4 lpm and sat now 90%
[2025-09-13] VITALS: BP 101/50; PULSE 78; RESP 17; TEMP 36.6; O2SAT 90
--- NOTE | 2025-09-13 00:29 | PC.NURSE ---
pt using urinal at this. no s/s of distress
[2025-09-13 00:57] VITALS: BP 102/50; PULSE 78; RESP 16; O2SAT 93
[2025-09-13 07:45] VITALS: BP 135/50; PULSE 89; RESP 20; O2SAT 83
[2025-09-13 07:46] VITALS: BP 135/50; PULSE 89; RESP 20; TEMP -17.7; TEMP 0; O2SAT 83
== END 2025-09-13 07:47 | disposition home or self-care (01) ==
PROVIDERS: Emergency Medicine; Emergency Provider Emergency Medicine Emergency Medical Services
DX: M79.606 Pain in leg, unspecified (principal); F10.129 Alcohol abuse with intoxication, unspecified
CPT/HCPCS: 36415; 71045; 80053; 80307; 81001; 83880; 84484; 85025; 87086; 87088; 87186; 93005; 96360; 96361; 99284; 99285

== ENCOUNTER → 2025-09-12 20:19 | Outpatient (BNV) | payer MEDICAID, SELFPAY | PROVIDERS: Emergency Provider Emergency Medicine Emergency Medical Services; Visit Provider Internal Medicine | DX: M79.606 Pain in leg, unspecified (principal) | CPT/HCPCS: 93010 ==

== ENCOUNTER → 2025-09-12 22:00 | Outpatient (BNV) | payer MEDICAID, SELFPAY | PROVIDERS: Emergency Provider Emergency Medicine; Visit Provider Radiology Neuroradiology | DX: R91.8 Other nonspecific abnormal finding of lung field (principal) | CPT/HCPCS: 71045 ==

== ENCOUNTER 2025-09-13 19:50 | Emergency (ER) | payer MEDICAID, SELFPAY ==
--- NOTE | ~2025-09-13 | XR_ITS ---
CLINICAL HISTORY: dyspnea 1 view chest x-ray Comparison: Chest x-ray from 09/12/2025 Findings: Mild pulmonary opacities nonspecific and may reflect pulmonary edema and/or pneumonitis particularly in the lung bases. Mild cardiomegaly accentuated by AP technique. No pneumothorax or pleural effusion in this one view study. Imaged rib deformities appear old/chronic. Low bone mineralization suggested. IMPRESSION: Pulmonary opacities persists and may reflect pulmonary edema or pneumonitis. Recommend attention on follow-up to ensure resolution. This document has been electronically signed by: Phillip Anthony MD on 09/13/2025 21:53:26
[2025-09-13 20:08] VITALS: BP 148/90; PULSE 76; O2SAT 94; BMI 22.6
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
--- OUTSIDE RECORDS SUMMARY | 2025-09-13 20:22 | XMS_ITS | Encounter Summary ---
Author Organization [facility] Address [address] [place] [address] [place] [address] Care Team Providers Care Compress Engineer Name Role Phone Charbel Calles RN Unavailable Conor Vidal Unavailable Reason for Visit * Reason Comments Care Coordination C3CM/W Conor Pierre bere, Initial outreach call_lvm Encounter Details Date Type Department Care Team (Latest Contact Info) Description 09/11/2025 Patient Outreach [facility] [address] [place] [address] Conor Vidal Care Coordination (C3CM/LORETAW Conor Vidal, [...] this time. CHW LVM introducing herself from [facility] CM Department with CHW's name,department and direct contact number requesting call back. Will re-attempt to contact within 2 days. and address not confirmed. documented in this encounter Plan of Treatment Not on file documented as of this encounter Visit Diagnoses Not on filedocumented in this encounter Care Teams Compress Engineer Relationship Specialty Start Date End Date Charbel Calles RN [address] [place] [address] Registered Nurse Family Medicine 09/11/25 Conor Vidal 09/11/25 documented as of this encounter
--- OUTSIDE RECORDS SUMMARY | 2025-09-13 20:22 | XMS_ITS | Encounter Summary ---
Author Organization [facility] Address [address] [place] [address] [address] [place] [address] Care Team Providers Care Blacktop Spreader Name Role Phone Charbel Calles RN Unavailable [phone] Conor Vidal Unavailable Reason for Visit * Reason Comments Care Coordination C3/W Conor blackburn, Chart review Encounter Details Date Type Department Care Team (Latest Contact Info) Description 09/11/2025 Patient Outreach [facility] [address] [place] [address] Conor Vidal Care Coordination (C3CM/LORETAW Conor Vidal, [...] 09/03-09/05/25, C 08/15-08/21/25, C 07/30/25, C 07/18/25, [facility] 07/13-07/16/25, etc. Last appointment in PCP office on 05/08/25. Need SALES PROJECT ENGINEER appointment. documented in this encounter Plan of Treatment Not on file documented as of this encounter Visit Diagnoses Not on filedocumented in this encounter Care Teams Blacktop Spreader Relationship Specialty Start Date End Date Charbel Calles, RN [address] [place] [address] Registered Nurse Family Medicine 09/11/25 Conor Vidal 09/11/25 documented as of this encounter
--- OUTSIDE RECORDS SUMMARY | 2025-09-13 20:22 | XMS_ITS | Encounter Summary ---
Author Organization [employer] Address [address] [place] [address] [address] [place] [address] Care Team Providers Care Railroad Police Officer Name Role Phone Charbel Calles RN Unavailable [phone] Conor Vidal Unavailable Encounter Details Date Type Department Care Team (Late st Contact Info) Description 09/11/2025 Patient Outreach [facility] [address] [place] [address] Jodi Cerda RN Social History Tobacco Use [...] on filedocumented in this encounter Care Teams Railroad Police Officer Relationship Specialty Start Date End Date Charbel Calles, RN [address] [place] [address] Registered Nurse Family Medicine 09/11/25 Conor Vidal 09/11/25 documented as of this encounter
--- OUTSIDE RECORDS SUMMARY | 2025-09-13 20:22 | XMS_ITS | Clinical Summary ---
Author Organization [facility] Address [address] [place] [address] Phone Care Team Providers Care Chief Wharfinger Name Role Phone [facility], Facility Primary Care Provider Pcp, Unknown [...] magnesia). Active monobasic and dibasic sodium phosphates (79376 ENEMA) 19-7 gram/[address] 1 [...] Patient presented with altered mental status from [facility] where he appeared more lethargic than [...] EST) SODIUM 137 133 - 146 mmol/L [facility] POTASSIUM 4.5 3.3 - 5.1 mmol/L [facility] CHLORIDE 105 96 - 108 mmol/L [facility] CO2 22 21 - 35 mmol/L [facility] BUN 14 6 - 19 mg/dL [facility] CREATININE 0.80 0.5 - 1.5 mg/dL [facility] GLUCOSE 104(H) 70 - 99 mg/dL [facility] ALBUMIN 4.1 3.9 - 4.8 g/dL [facility] TOTAL PROTEIN 8.1(H) 6.5 - 8.0 g/dL [facility] CALCIUM 10.4(H) 8.4 - 10.3 mg/dL [facility] ALKALINE PHOSPHATASE 118(H) 39 - 117 U/L [facility] TOTAL BILIRUBIN 0.6 0.0 - 1.2 mg/dL [facility] AST 25 0 - 37 U/L [facility] ALT 7 0 - 40 U/L [facility] GLOBULIN 4.0 1 - 4.8 g/dL [facility] EGFR 105 >59 mL/min/1.7 3m2 [facility] Comment:Estimated glomerular filtration rate calculated using the CKD-EPI refit equation. ANION GAP 15 10 - 20 mmol/L [facility] Blood 01/04/2024 9:22 AM EST 01/04/2024 9:53 AM EST Missy WALLACE LAB BLOOD ORDERABLES Fin al Result Performing Organization Address City/[facility]/ZIP Co de Phone Number [address] [address] * Hepatitis C antibody, qualitative (01/04/2024 9:22 AM EST) HCV NON-REACTIV E NON-REACTI VE [facility] Blood 01/04/2024 9:22 AM EST 01/04/2024 9:53 AM EST Missy WALLACE LAB BLOOD ORDERABLES Fin al Result Performing Organization Address [facility] Co de Phone Number [address] [address] from Last 3 Months or Most Recently Relevant to Health Maintenance [place] [address] [place] [address] C3 ACO [facility] C3 ACO C3 [employer]CO [facility] C3 ACO [facility] C3 ACO [facility] [place] [id number] [facility] C3 ACO Advance Directives For more information, please contact: [phone] (9AM - 5PM [facility], Monday-Monday) Documents on File Type Date Recorded Patient Ham Facer Expl anation Healthcare Proxy 10/09/2023 10:49 AM [...] Agents on File Name Relationship Healthcare Agent Ganj danyell Communication Guillermo Lobato .Primary Health Care Agent (Proxy form on file) Care Teams Chief Wharfinger Relationship Specialty Start Date End Date [facility] [address] [place] [id number] PCP - General 10/07/23 Pcp, Unknown 10/07/23 Additional Source Comments The information contained in this document represents components of the legal health record. It is not the complete legal health record.[facility]
--- OUTSIDE RECORDS SUMMARY | 2025-09-13 20:22 | XMS_ITS | Encounter Summary ---
Author Organization [employer] Address [address] [place] [address] [address] [place] [address] Care Team Providers Care Mortician Investigator Name Role Phone Charbel Calles RN Unavailable [phone] Conor Vidal Unavailable Encounter Details Date Type Department Care Team (Late st Contact Info) Description 09/12/2025 Orders Only GENERIC EXTERNAL DATA DEPARTMENT Provider, [...] Name Type Priority Associated Diagnoses Date /Time Culture, Urine, Routine Microbiology Routine 09/12/2025 10:15 PM EDT documented as of this encounter Procedures Procedure Name Priority Date/Time Associated Diagnosis Comments XR CHEST 1 VIEW Routine 09/12/2025 10:44 PM EDT CULTURE, URINE, ROUTINE Routine 09/12/2025 10:15 PM EDT URINALYSIS, COMPLETE, WITH REFLEX TO CULTURE Routine 09/12/2025 9:30 PM EDT DRUG MONITOR, PANEL 1, SCREEN, URINE Routine 09/12/2025 9:30 PM EDT HIGH SENSITIVITY TROPONIN I Routine 09/12/2025 9:19 PM EDT NT-PROBNP Routine 09/12/2025 9:19 PM EDT CBC WITH AUTO DIFFERENTIAL Routine 09/12/2025 9:19 PM EDT COMPREHENSIVE METABOLIC PANEL Routine 09/12/2025 9:19 PM EDT documented in this encounter Results * XR Chest 1 View (09/12/2025 10:44 PM EDT) Anatomical Region Laterality Modality Chest Radiographic Lamar ging 09/12/2025 10:4 4 PM EDT Narrative 09/12/2025 10:45 PM EDT [address] [address] XRay Report Signed Patient: Charbel Delgado MR#: [id number] : 1970 Acct:[id number] Age/Sex: 55 / M ADM Date: 09/12/25 Loc: .ED Attending Dr: Ordering Physician: Alexandria Sweeney MD Date of Service: 09/12/25 Procedure(s): XR chest 1V Accession Number(s): [id number] cc: [facility]; Alexandria Sweeney MD Reason for Exam: hypoxic CLINICAL HISTORY: hypoxic 1 view chest x-ray Comparison: Chest x-ray from 09/11/2025 Findings: Mild worsening of the mild pulmonary opacities nonspecific and may reflect pulmonary edema or pneumonitis given interstitial predominance. No pneumothorax in this portable image. Question pleural thickening versus trace pleural effusions. Mild cardiomegaly accentuated by AP technique. No definite osseous change in the [id number]-si-[id number]. IMPRESSION: Mild pulmonary opacities nonspecific and may reflect pulmonary edema or pneumonitis. This document has been electronically signed by: Phillpi Anthony MD on 09/12/2025 22:44:13 Dictated By: Phillip Anthony MD Signed By: <Electronically signed by Phillip Anthony MD in OV> 09/12/252243 DD/ 43 TD/TT: 09/12/252243 Director Of Philanthropy: Procedure Note Donotuseinterpreter, Image - 09/12/[address] [address] XRay Report Signed Patient: Rod DelgadoR#: [id number] : 1970Acct:[id number] Age/Sex: 55 / MADM Date: 09/12/25 Loc: HO.ED Attending Dr: Ordering Physician: Alexandria Sweeney MD Date of Service: 09/12/25 Procedure(s): XR chest 1V Accession Number(s): [id number] cc: [facility]; Alexandria Sweeney MD Reason for Exam: hypoxic CLINICAL HISTORY: hypoxic 1 view chest x-ray Comparison: Chest x-ray from 09/11/2025 Findings: Mild worsening of the mild pulmonary opacities nonspecific and may reflect pulmonary edema or pneumonitis given interstitial predominance. No pneumothorax in this portable image. Question pleural thickening versus trace pleural effusions. Mild cardiomegaly accentuated by AP technique. No definite osseous change in the ppxem-ai-uifc. IMPRESSION: Mild pulmonary opacities nonspecific and may reflect pulmonary edema or pneumonitis. This document has been electronically signed by: Phillip Anthony MD on 09/12/2025 22:44:13 Dictated By: Phillip Anthony MD Signed By: <Electronically signed by Phillip Anthony MD in OV> 09/12/252243 DD/ 43 TD/TT: 09/12/252243 Director Of Philanthropy: [facility] External Provider IMG XR PROCEDURES Edited Result - Final * (ABNORMAL) Drug Monitoring, Panel 1, Screen, Urine (09/12/2025 9:30 PM EDT) Opiate Screen Urine Not Detected Not Detect [facility] Comment:Opiate cut-off is 30 0 ng/mL.Positive results are unconfirmed and should not be used fornon-medical purposes. Barbiturates, Urine POSITIVE(A) Not Detect [facility] Comment:Barbiturate cut-off is 200 ng/mL.Positive results are unconfirmed and should not be used fornon-medical purposes. Phencyclidine Screen Urine Not Detected Not Detect [facility] Comment:Phencyclidine cut-of f is 25 ng/mL.Positive results are unconfirmed and should not be used fornon-medical purposes. Amphetamine Screen Urine Not Detected Not Detect [facility] Comment:Amphetamine cut-off is 1000 ng/mL.Positive results are unconfirmed and should not be used fornon-medical purposes. Benzodiazepines Screen Urine Not Detected Not Detect [facility] Comment:Benzodiazepine cut-o ff is 200 ng/mL.Positive results are unconfirmed and should not be used fornon-medical purposes. Cocaine Screen Urine Not Detected Not Detect [facility] Comment:Cocaine cut-off is 3 00 ng/mL.Positive results are unconfirmed and should not be used fornon-medical purposes. Cannabinoid Screen Urine Not Detected Not Detect [facility] Comment:Cannabinoid cut-off is 50 ng/mL.Positive results are unconfirmed and should not be used fornon-medical purposes. Methadone Screen, Urine Not Detected Not Detect ng/mL [facility] Comment:Methadone cut-off is 300 ng/mL.Positive results are unconfirmed and should not be used fornon-medical purposes. FENTANYL URINE Not Detected Not Detect [facility] Comment:Fentanyl cut-off is 1 ng/mL.Positive results are unconfirmed and should not be used fornon-medical purposes. Oxycodone Urine Screen Not Detected Not Detect ng/mL [facility] Comment:Oxycodone cut-off is 100 ng/mL.Positive results are unconfirmed and should not be used fornon-medical purposes. Buprenorphine Screen Not Detected Not Detect ng/mL [facility] Comment:Buprenorphine cut-of f is 5 ng/mL.Positive results are unconfirmed and should not be used fornon-medical purposes. 09/12/2025 9:30 PM EDT 09/12/2025 9:41 PM EDT us Generic External Data Provider LAB URINE ORDERAB LES Final Result [facility] [address] [place] [address] [phone] * (ABNORMAL) Urinalysis, Complete, with Reflex to Culture (09/12/2025 9:30 PM EDT) Color Urine Yellow [facility] Appearance Urine Clear [facility] PH 5.5 5.0 - 9.0 [facility] Glucose Urine UA Negative Negative mg/dL [facility] Urine Blood Negative Negative [facility] Specific [place] - Urine 1.010 1.005 - 1.025 [facility] Urine Protein Negative Neg-Trace mg/dL [facility] Urine Ketones Negative Negative mg/dL [facility] Nitrite Urine Negative Negative [facility] Leukocyte Esterase Urine Small (1+)(A) Negative [facility] RBC Urine 0-2 0 - 2 /HPF [facility] Urine WBC 0-5 0 - 5 /HPF [facility] Urine Squamous Epithelial Cell 0-2 0 - 2 /HPF [facility] Urine Bacteria None Seen None Seen [facility] Hyaline Casts, Urine 0-2 0 - 2 /LPF [facility] 09/12/2025 9:30 PM EDT 09/12/2025 9:41 PM EDT Narrative [facility] - 09/12/2025 10:01 PM EDT [id number], [employer] us Generic External Data Provider LAB URINE ORDERAB LES Final Result [facility] [address] [place] [phone] [phone] * NT-proBNP (09/12/2025 9:19 PM EDT) NT-proBNP 128.1 <300 pg/mL [facility] Comment:Reference Range:Age Group (years) NT-proBNP (pg/ml) InterpretationAll <300 Negative: HF unlikelyFor patients presenting to the ED with clinical suspicion ofnew onset or worsening HF, see below:18 to <50 >299.9 to <450.0 Grayzone: [id number] to 75 >299.9 to <900.0 other causes of>75 >299.9 to <1800.0 NT-proBNP [id number] to <50 >449.9 Positive: HF -44 >899.9>75 >1799.9Note: Elevated NT-proBNP levels should be interpreted inthe context of other clinical information. 09/12/2025 9:19 PM EDT 09/12/2025 9:23 PM EDT Generic External Data Provider LAB BLOOD ORDERAB LES Final Result Performing Organization Address [facility] de Phone Number [facility] [address] [place] [phone] * High Sensitivity Troponin I (09/12/2025 9:19 PM EDT) [facility] TROPONIN I HIGH SENSITIVITY <2.7 <3.5 - 35.0 ng/L [facility] Comment:The [place] high sens itivity Troponin-I results should beused in conjunction with other diagnostic information suchas ECG, clinical observations and information, and patientsymptoms to aid in the diagnosis of [place]. 09/12/2025 9:19 PM EDT 09/12/2025 9:23 PM EDT [employer] External Data Provider LAB BLOOD ORDERAB LES Final Result Performing Organization Address [facility] de Phone Number [facility] [address] [place] [phone] * (ABNORMAL) Comprehensive Metabolic Panel (09/12/2025 9:19 PM EDT) [facility] Sodium 140 135 - 145 mmol/L [facility] Potassium 3.8 3.3 - 5.1 mmol/L [facility] Chloride 111(H) 96 - 108 mmol/L [facility] Carbon Dioxide 18(L) 22 - 29 mmol/L [facility] Anion Gap 15 12 - 20 [facility] Urea Nitrogen (BUN) 18(H) 9 - 16 mg/dL [facility] Creatinine, Serum 0.99 0.5 - 1.4 mg/dL [facility] Creatinine Clr Calc Pharmacy 74.4 [facility] Comment:eGFR (calculated fro m the MDRD study equation) and eCrCl(calculated from the Cockcroft-Gault equation) are based ondifferent parameters and may not yield comparable results.If eCrCl result is absurd, please check patient'sheight/weight. Estimated Glomerular Filt Rate >60 [facility] Comment:Chronic Kidney Disea se: Estimated GFR < 60 mL/min/1.75k9Qerqum Kidney Disease: Estimated GFR < 15 mL/min/1.73m2 Glucose 89 60 - 115 mg/dL [facility] Calcium 8.2(L) 8.4 - 10.2 mg/dL [facility] Bilirubin, Total 0.3 0.0 - 1.0 mg/dL [facility] Aspartate Amino Transferase 45(H) 5 - 37 U/L [facility] Alanine Aminotransferase 11 0 - 40 U/L [facility] Total Protein 8.0 6.5 - 8.0 g/dL [facility] Albumin Level 3.5 3.5 - 5.0 g/dL [facility] Alkaline Phosphatase 134(H) 39 - 117 U/L [facility] 09/12/2025 9:19 PM EDT 09/12/2025 9:23 PM EDT us Generic External Data Provider LAB BLOOD ORDERAB LES Final Result [facility] [address] [place] [phone] * (ABNORMAL) CBC auto differential (09/12/2025 9:19 PM EDT) White Blood Count 4.8 4.8 - 10.8 X10*3/uL [facility] Red Blood Count 3.34(L) 4.60 - 5.80 X10*6/uL [facility] Hemoglobin 9.9(L) 14.0 - 18.0 g/dl [facility] Hematocrit 31.7(L) 42.0 - 52.0 % [facility] Mean Corpuscular Volume 94.9 80.0 - 98.0 fL [facility] Mean Corpuscular Hemoglobin 29.6 27.0 - 33.0 pg [facility] Mean Corpuscular HGB Conc 31.2 31.0 - 36.0 g/dl [facility] Red Cell Distribution Width 17.2(H) 11.0 - 16.0 % [facility] Platelet Count 80(L) 160 - 400 X10*3/uL [facility] Mean Platelet Volume 12.1 9.4 - 12.4 fL [facility] Neutrophils Percent Auto 65.3 45 - 73 % [facility] Imm Gran Pct Auto 0.2 0.0 - 0.4 % [facility] Lymphocytes Percent Auto 19.2(L) 20 - 40 % [facility] Monocytes Percent Auto 8.6 2 - 11 % [facility] Eosinophils Percent Auto 5.2(H) 0 - 4 % [facility] Basophils Percent Auto 1.5 0 - 2 % [facility] NRBC Pct Auto 0.0 0.0 - 0.2 /100WBC [facility] Neutrophils Absolute Auto 3.1 2.0 - 8.3 x10*3/uL [facility] Imm Gran Abs Auto 0.01 0.00 - 0.03 X10*3/uL [facility] Lymphocytes Absolute Auto 0.9(L) 1.2 - 4.9 X10*3/uL [facility] Monocytes Absolute Auto 0.4 0.1 - 1.2 X10*3/uL [facility] Eosinophils Absolute Auto 0.3 0.0 - 0.4 X10*3/uL [facility] Basophils Absolute Auto 0.1 0.0 - 0.2 X10*3/uL [facility] NRBC Abs Auto 0.000 0.0 - 0.012 X10*3/uL [facility] 09/12/2025 9:19 PM EDT 09/12/2025 9:23 PM EDT us Generic External Data Provider LAB BLOOD ORDERAB LES Final Result [facility] [address] [place], [place] [phone] documented in this encounter Visit Diagnoses Not on filedocumented in this encounter Care Teams Mortician Investigator Relationship Specialty Start Date End Date Charbel Calles, RN [address] [place] [address] [place] [address] Registered Nurse Family Medicine 09/11/25 Conor Vidal 09/11/25 documented as of this encounter
--- OUTSIDE RECORDS SUMMARY | 2025-09-13 20:22 | XMS_ITS | Encounter Summary ---
Author Organization [employer] Address [address] [place] [address] [place] [address] Care Team Providers Care Client Professional Name Role Phone Charbel Calles RN Unavailable [phone] Conor Vidal Unavailable Encounter Details Date Type Department Care Team ([facility] st Contact Info) Description 09/03/2025 Results Follow-Up [facility] Information Management [address] [place] [address] Provider, Generic External Data XR Chest 2 [...] on filedocumented in this encounter Care Teams Client Professional Relationship Specialty Start Date End Date Charbel Calles RN [address] [place] [address] Registered Nurse Family Medicine 09/11/25 Conor Vidal 09/11/25 documented as of this encounter
--- OUTSIDE RECORDS SUMMARY | 2025-09-13 20:22 | XMS_ITS | Encounter Summary ---
Author Organization [employer] Address [address] [place] [address] [address] [place] [address] Care Team Providers Care Machine Operator Name Role Phone Charbel Calles RN Unavailable [phone] Conor Vidal Unavailable Reason for Visit * Reason Comments Care Coordination C3CM- chart review Encounter Details Date Type Department Care Team (Latest Contact Info) Description 09/11/2025 Patient Outreach [facility] [address] [place], [place] [phone] Charbel Calles RN [address] [place] [address] Care Coordination (C3CM- chart review) Social History [...] months include C 09/10/25, C 09/03- 09[place]05/[place] [facility] [place] [facility] [place] [facility] [place], [facility] [place]16[place], etc. Last appointment in PCP office on 05/08/25. 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 documented in this encounter Plan of Treatment Not on file documented as of this encounter Visit Diagnoses Not on filedocumented in this encounter Care Teams Machine Operator Relationship Specialty Start Date End Date Charbel Calles RN [address] [place] [address] Registered Nurse Family Medicine 09/11/25 Conor Vidal 09/11/25 documented as of this encounter
--- OUTSIDE RECORDS SUMMARY | 2025-09-13 20:22 | XMS_ITS | Clinical Summary ---
Author Organization [employer] Address [address] [place] [address] [address] [place] [address] Care Team Providers Care Manager Employment Name Role Phone Charbel Calles RN Unavailable [phone] Conor Vidal Unavailable Allergies No known active [...] presented with altered mental status from [facility] where he appeared more lethargic [...] Encounters Date Type Department Care Team Description 09/12/2025 Orders Only GENERIC EXTERNAL DATA DEPARTMENT Provider, Generic External Data 09/11/2025 Patient Outreach [facility] [address] [place], [place] [phone] Edith Zuniga, RN 09/11/2025 Patient Outreach [address] [address] Conor Vidal Care Coordination (C3/W Conor Vidal, Initial outreach call_lvm ) 09/11/2025 Patient Outreach [address] [address] Conor Vidal Care Coordination (C3CM/W Conor Vidal, Chart review ) 09/11/2025 Patient Outreach [facility] [address] [place], [place] [phone] Charbel Calles, RN Care Coordination (C3CM- chart review) 09/11/2025 Patient Outreach [address] [address] Jodi Cerda, RN 09/08/2025 Results Follow-Up [facility] [address] [place] [address] External Provider, [facility] CTA Chest PE Protocal, XR Chest 1 View 09/06/2025 Orders Only [facility] External Provider, [facility] 09/03/2025 Results Follow-Up [facility] [address] [place] [address] Provider, Generic External Data XR Chest 2 Views 09/03/2025 Orders Only GENERIC EXTERNAL DATA DEPARTMENT Provider, Generic External Data 08/21/2025 Orders Only GENERIC EXTERNAL DATA DEPARTMENT Provider, Generic External Data 08/14/2025 Orders Only [facility] External Provider, [facility] 08/04/2025 Patient Outreach [facility] [address] [place] [address] Conor Vidal Care Coordination ([facility]/Liz Vidal, TC #6 outreach_closed ) 07/21/2025 Patient Outreach [facility] [address] [place] [address] Conor Vidal 07/08/2025 Patient Outreach [facility] [address] [place] [address] Missy Milner, LAURA 07/07/[address] [address] Mihaela Zhong, LAURA Needs SALES ENG[employer] App[employer] 07/06/2025 Orders Only GENERIC EXTERNAL DATA DEPARTMENT Provider, Generic External Data 07/02/2025 Orders Only [facility] External Provider, [facility] 07/01/2025 Patient Outreach [facility] [address] [place] [address] Missy Milner, LAURA Care Coordination ([facility] Conor Vidal, TC #5 initial outreach attempt_lvm) 06/19/2025 Results Follow-Up [facility] [address] [place] [phone] Provider, Generic External Data XR Chest 2 Views 06/19/2025 Results Follow-Up [facility] Information Management [address] [place] [phone] External Provider, [facility] CT Chest w/ Contrast 06/19/2025 Orders Only [facility] External Provider, [facility] 06/18/2025 Orders Only GENERIC EXTERNAL [...] of 2) 2019 COVID-19 Vaccine ( - 2024-2 6 season) 2025 11/23/2022, 04/28/2021, [...] URINE, ROUTINE Routine 09/12/2025 10:15 PM EDT DRUG MONITOR, PANEL 1, SCREEN, URINE Routine 09/12/2025 9:30 PM EDT URINALYSIS, COMPLETE, WITH REFLEX TO CULTURE Routine 09/12/2025 9:30 PM EDT NT-PROBNP Routine 09/12/2025 9:19 PM EDT HIGH SENSITIVITY TROPONIN I Routine 09/12/2025 9:19 PM EDT COMPREHENSIVE METABOLIC PANEL Routine 09/12/2025 9:19 PM EDT CBC WITH AUTO DIFFERENTIAL Routine 09/12/2025 9:19 PM EDT CTA CHEST PE PROTOCAL Routine 09/06/2025 12:04 [...] Months Results * XR Chest 1 View (09/12/2025 10:44 PM EDT) Only the most recent of7 resultswithin the time period is included. Anatomical Region Laterality Modality Chest Radiographic Lamar ging 09/12/2025 10:4 4 PM EDT Narrative 09/12/2025 10:45 PM EDT [address] [address] XRay Report Signed Patient: Charbel Delgado MR#: [id number] : 1970 Acct:[id number] Age/Sex: 55 / M ADM Date: 09/12/25 Loc: .ED Attending Dr: Ordering Physician: Alexandria Sweeney MD Date of Service: 09/12/25 Procedure(s): XR chest 1V Accession Number(s): [id number] cc: [facility]; Alexandria Sweeney MD Reason for Exam: hypoxic CLINICAL HISTORY: hypoxic 1 view chest x-ray Comparison: Chest x-ray from 09/11/2025 Findings: Mild worsening of the mild pulmonary opacities nonspecific and may reflect pulmonary edema or pneumonitis given interstitial predominance. No pneumothorax in this portable image. Question pleural thickening versus trace pleural effusions. Mild cardiomegaly accentuated by AP technique. No definite osseous change in the wtrdl-sh-kgqo. IMPRESSION: Mild pulmonary opacities nonspecific and may reflect pulmonary edema or pneumonitis. This document has been electronically signed by: Phillip Anthony MD on 09/12/2025 22:44:13 Dictated By: Phillip Anthony MD Signed By: <Electronically signed by Phillip Anthony MD in OV> 09/12/252243 DD/ 43 TD/TT: 09/12/252243 Regulatory Affairs Specialist: Procedure Note Donotuseinterpreter, Image - 09/12/[address] [address] XRay Report Signed Patient: Rod DelgadoR#: [id number] : 1970Acct:[id number] Age/Sex: 55 / MADM Date: 09/12/25 Loc: .ED Attending Dr: Ordering Physician: Alexandria Sweeney MD Date of Service: 09/12/25 Procedure(s): XR chest 1V Accession Number(s): [id number] cc: [facility]; Alexandria Sweeney MD Reason for Exam: hypoxic CLINICAL HISTORY: hypoxic 1 view chest x-ray Comparison: Chest x-ray from 09/11/2025 Findings: Mild worsening of the mild pulmonary opacities nonspecific and may reflect pulmonary edema or pneumonitis given interstitial predominance. No pneumothorax in this portable image. Question pleural thickening versus trace pleural effusions. Mild cardiomegaly accentuated by AP technique. No definite osseous change in the uqnio-ej-btxd. IMPRESSION: Mild pulmonary opacities nonspecific and may reflect pulmonary edema or pneumonitis. This document has been electronically signed by: Phillip Anthony MD on 09/12/2025 22:44:13 Dictated By: Phillip Anthony MD Signed By: <Electronically signed by Phillip Anthony MD in OV> 09/12/252243 DD/ 43 TD/TT: 09/12/252243 Regulatory Affairs Specialist: [facility] External Provider IMG XR PROCEDURES Edited Result - Final * (ABNORMAL) Urinalysis, Complete, with Reflex to Culture (09/12/2025 9:30 PM EDT) Only the most recent of2 resultswithin the time period is included. Color Urine Yellow [facility] Appearance Urine Clear [facility] PH 5.5 5.0 - 9.0 [facility] Glucose Urine UA Negative Negative mg/dL [facility] Urine Blood Negative Negative [facility] Specific [place] - Urine 1.010 1.005 - 1.025 [facility] Urine Protein Negative Neg-Trace mg/dL [facility] Urine Ketones Negative Negative mg/dL [facility] Nitrite Urine Negative Negative [facility] Leukocyte Esterase Urine Small (1+)(A) Negative [facility] RBC Urine 0-2 0 - 2 /HPF [facility] Urine WBC 0-5 0 - 5 /HPF [facility] Urine Squamous Epithelial Cell 0-2 0 - 2 /HPF [facility] Urine Bacteria None Seen None Seen [facility] Hyaline Casts, Urine 0-2 0 - 2 /LPF [facility] 09/12/2025 9:30 PM EDT 09/12/2025 9:41 PM EDT Narrative [facility] - 09/12/2025 10:01 PM EDT [id number], Clean Catch us Generic External Data Provider LAB URINE ORDERAB LES Final Result [facility] [address] [place] [phone] * (ABNORMAL) Drug Monitoring, Panel 1, Screen, Urine (09/12/2025 9:30 PM EDT) Only the most recent of2 resultswithin the time period is included. Opiate Screen Urine Not Detected Not Detect [facility] Comment:Opiate cut-off is 30 0 ng/mL.Positive results are unconfirmed and should not be used fornon-medical purposes. Barbiturates, Urine POSITIVE(A) Not Detect [facility] Comment:Barbiturate cut-off is 200 ng/mL.Positive results are unconfirmed and should not be used fornon-medical purposes. Phencyclidine Screen Urine Not Detected Not Detect [facility] Comment:Phencyclidine cut-of f is 25 ng/mL.Positive results are unconfirmed and should not be used fornon-medical purposes. Amphetamine Screen Urine Not Detected Not Detect [facility] Comment:Amphetamine cut-off is 1000 ng/mL.Positive results are unconfirmed and should not be used fornon-medical purposes. Benzodiazepines Screen Urine Not Detected Not Detect [facility] Comment:Benzodiazepine cut-o ff is 200 ng/mL.Positive results are unconfirmed and should not be used fornon-medical purposes. Cocaine Screen Urine Not Detected Not Detect [facility] Comment:Cocaine cut-off is 3 00 ng/mL.Positive results are unconfirmed and should not be used fornon-medical purposes. Cannabinoid Screen Urine Not Detected Not Detect [facility] Comment:Cannabinoid cut-off is 50 ng/mL.Positive results are unconfirmed and should not be used fornon-medical purposes. Methadone Screen, Urine Not Detected Not Detect ng/mL [facility] Comment:Methadone cut-off is 300 ng/mL.Positive results are unconfirmed and should not be used fornon-medical purposes. FENTANYL URINE Not Detected Not Detect [facility] Comment:Fentanyl cut-off is 1 ng/mL.Positive results are unconfirmed and should not be used fornon-medical purposes. Oxycodone Urine Screen Not Detected Not Detect ng/mL [facility] Comment:Oxycodone cut-off is 100 ng/mL.Positive results are unconfirmed and should not be used fornon-medical purposes. Buprenorphine Screen Not Detected Not Detect ng/mL [facility] Comment:Buprenorphine cut-of f is 5 ng/mL.Positive results are unconfirmed and should not be used fornon-medical purposes. 09/12/2025 9:30 PM EDT 09/12/2025 9:41 PM EDT Generic External Data Provider LAB URINE ORDERAB LES Final Result Performing Organization Address [facility] Number [facility] [address] [place] [phone] * High Sensitivity Troponin I (09/12/2025 9:19 PM EDT) Only the most recent of5 resultswithin the time period is included. TROPONIN I HIGH SENSITIVITY <2.7 <3.5 - 35.0 ng/L [facility] Comment:The Yarbrough high sens itivity Troponin-I results should beused in conjunction with other diagnostic information suchas ECG, clinical observations and information, and patientsymptoms to aid in the diagnosis of MS. 09/12/2025 9:19 PM EDT 09/12/2025 9:23 PM EDT Generic External Data Provider LAB BLOOD ORDERAB LES Final Result Performing Organization Address [facility] de Phone Number [facility] [address] [place] [phone] * NT-proBNP (09/12/2025 9:19 PM EDT) Only the most recent of4 resultswithin the time period is included. NT-proBNP 128.1 <300 pg/mL [facility] Comment:Reference Range:Age Group (years) NT-proBNP (pg/ml) InterpretationAll <300 Negative: HF unlikelyFor patients presenting to the ED with clinical suspicion ofnew onset or worsening HF, see below:18 to <50 >299.9 to <450.0 Grayzone: [id number] to 75 >299.9 to <900.0 other causes of>75 >299.9 to <1800.0 NT-proBNP jjxlqciup28 to <50 >449.9 Positive: HF adebtw12-26 >899.9>75 >1799.9Note: Elevated NT-proBNP levels should be interpreted inthe context of other clinical information. 09/12/2025 9:19 PM EDT 09/12/2025 9:23 PM EDT us Generic External Data Provider LAB BLOOD ORDERAB LES Final Result [facility] [address] [place] [phone] * (ABNORMAL) CBC auto differential (09/12/2025 9:19 PM EDT) Only the most recent of7 resultswithin the time period is included. White Blood Count 4.8 4.8 - 10.8 X10*3/uL [facility] Red Blood Count 3.34(L) 4.60 - 5.80 X10*6/uL [facility] Hemoglobin 9.9(L) 14.0 - 18.0 g/dl [facility] Hematocrit 31.7(L) 42.0 - 52.0 % [facility] Mean Corpuscular Volume 94.9 80.0 - 98.0 fL [facility] Mean Corpuscular Hemoglobin 29.6 27.0 - 33.0 pg [facility] Mean Corpuscular HGB Conc 31.2 31.0 - 36.0 g/dl [facility] Red Cell Distribution Width 17.2(H) 11.0 - 16.0 % [facility] Platelet Count 80(L) 160 - 400 X10*3/uL [facility] Mean Platelet Volume 12.1 9.4 - 12.4 fL [facility] Neutrophils Percent Auto 65.3 45 - 73 % [facility] Imm Gran Pct Auto 0.2 0.0 - 0.4 % [facility] Lymphocytes Percent Auto 19.2(L) 20 - 40 % [facility] Monocytes Percent Auto 8.6 2 - 11 % [facility] Eosinophils Percent Auto 5.2(H) 0 - 4 % [facility] Basophils Percent Auto 1.5 0 - 2 % [facility] NRBC Pct Auto 0.0 0.0 - 0.2 /100WBC [facility] Neutrophils Absolute Auto 3.1 2.0 - 8.3 x10*3/uL [facility] Imm Gran Abs Auto 0.01 0.00 - 0.03 X10*3/uL [facility] Lymphocytes Absolute Auto 0.9(L) 1.2 - 4.9 X10*3/uL [facility] Monocytes Absolute Auto 0.4 0.1 - 1.2 X10*3/uL [facility] Eosinophils Absolute Auto 0.3 0.0 - 0.4 X10*3/uL [facility] Basophils Absolute Auto 0.1 0.0 - 0.2 X10*3/uL [facility] NRBC Abs Auto 0.000 0.0 - 0.012 X10*3/uL [facility] 09/12/2025 9:19 PM EDT 09/12/2025 9:23 PM EDT us Generic External Data Provider LAB BLOOD ORDERAB LES Final Result [facility] [address] [place] [phone] * (ABNORMAL) Comprehensive Metabolic Panel (09/12/2025 9:19 PM EDT) Only the most recent of7 resultswithin the time period is included. Sodium 140 135 - 145 mmol/L [facility] Potassium 3.8 3.3 - 5.1 mmol/L [facility] Chloride 111(H) 96 - 108 mmol/L [facility] Carbon Dioxide 18(L) 22 - 29 mmol/L [facility] Anion Gap 15 12 - 20 [facility] Urea Nitrogen (BUN) 18(H) 9 - 16 mg/dL [facility] Creatinine, Serum 0.99 0.5 - 1.4 mg/dL [facility] Creatinine Clr Calc Pharmacy 74.4 [facility] Comment:eGFR (calculated fro m the MDRD study equation) and eCrCl(calculated from the Cockcroft-Gault equation) are based ondifferent parameters and may not yield comparable results.If eCrCl result is absurd, please check patient'sheight/weight. Estimated Glomerular Filt Rate >60 [facility] Comment:Chronic Kidney Disea se: Estimated GFR < 60 mL/min/1.25y2Xmnzup Kidney Disease: Estimated GFR < 15 mL/min/1.73m2 Glucose 89 60 - 115 mg/dL [facility] Calcium 8.2(L) 8.4 - 10.2 mg/dL [facility] Bilirubin, Total 0.3 0.0 - 1.0 mg/dL [facility] Aspartate Amino Transferase 45(H) 5 - 37 U/L [facility] Alanine Aminotransferase 11 0 - 40 U/L [facility] Total Protein 8.0 6.5 - 8.0 g/dL [facility] Albumin Level 3.5 3.5 - 5.0 g/dL [facility] Alkaline Phosphatase 134(H) 39 - 117 U/L [facility] 09/12/2025 9:19 PM EDT 09/12/2025 9:23 PM EDT us Generic External Data Provider LAB BLOOD ORDERAB LES Final Result [facility] [address] [place] [phone] * CTA Chest PE Protocal (09/06/2025 12:04 PM EDT) Anatomical Region Laterality Modality Body, Chest Computed Tomogra phy 09/06/2025 12:0 4 PM EDT Narrative 09/06/2025 12:06 PM EDT [address] [address] [address] Scan Report Signed Patient: Charbel Delgado MR#: [id number] : 1970 Acct:[id number] Age/Sex: 55 / M ADM Date: 09/06/25 Loc: HO.ED Attending Dr: Ordering Physician: Abril Sam Date of Service: 09/06/25 Procedure(s): CT angio chest PE protocol Accession Number(s): [id number] cc: Abril Sam; [facility] Report Number: [id number]: Total DLP = 188.00 mGy-cm Reason for [...] 09/06/25 1205 DD/ 1204 TD/TT: 09/06/25 1204 Regulatory Affairs Specialist: Procedure Note Donotuseinterpreter, Image - 09/06/[address] [address] [address] Scan Report Signed Patient: Isaias Delgado#: [id number] : 1970Acct:[id number] Age/Sex: 55 / MADM Date: 09/06/25 Loc: .ED Attending Dr: Ordering Physician: Abril Sam Date of Service: 09/06/25 Procedure(s): CT angio chest PE protocol Accession Number(s): [id number] cc: Abril Sam; [facility] Report Number: [id number]: Total DLP = 188.00 mGy-cm Reason for [...] 09/06/25 1205 DD/ 1204 TD/TT: 09/06/25 1204 Regulatory Affairs Specialist: [facility] External Provider IMG CT PROCEDURES Edited Result - Final * Blood Culture (Second) (09/06/2025 8:50 AM EDT) Blood Venous blood specimen / Unknown 09/06/2025 8:50 AM EDT 09/06/2025 8:54 AM EDT Comment:Blood Narrative [facility] - 09/11/2025 10:54 AM EDT Blood Culture (Second) No growth after 5 days. Specimen Source: Blood Generic External Data Provider LAB MICROBIOLOGY - GENERAL ORDERABLES Final Result Performing Organization Address [facility] Co de Phone Number [facility] [address] [place] [phone] * (ABNORMAL) Sed Rate by Modified Westergren (09/06/2025 8:50 AM EDT) Erythrocyte Sedimentation Rate 46(H) 0 - 15 MM/HR [facility] Comment:Patients with polycy themia and many hemoglobin abnormalitiesmay have depressed sed rates whereas patients with anemiamay have elevated sed rates. 09/06/2025 8:50 AM EDT 09/06/2025 8:54 AM EDT Generic External Data Provider LAB BLOOD ORDERAB LES Final Result Performing Organization Address [facility] Co de Phone Number [facility] [address] [place] [phone] * (ABNORMAL) C-reactive Protein (09/06/2025 8:50 AM EDT) Only the most recent of2 resultswithin the time period is included. Pathologist [facility] C Reactive Protein 0.57(H) < or = 0.50 mg/dL [facility] 09/06/2025 8:50 AM EDT 09/06/2025 8:54 AM EDT Generic External Data Provider LAB BLOOD ORDERAB LES Final Result Performing Organization Address [facility] Co de Phone Number [facility] [address] [place] [phone] * (ABNORMAL) VENOUS BLOOD GAS (09/06/2025 8:48 AM EDT) VBG pH 7.43 7.32 - 7.43 [facility] Comment:METER #: [id number] additional_comment: Junior orta VBG PCO2 29 mmHg [facility] Comment:METER #: [id number] additional_comment: Junior orta VBG PO2 71 mmHg [facility] Comment:METER #: [id number] additional_comment: Junior orta VBG Base Excess -3.3 mmol/L [facility] Comment:METER #: [id number] additional_comment: Cb you VBG HCO3 20(L) 22 - 26 mmol/L [facility] Comment:METER #: [id number] additional_comment: Junior orta O2 Sat, Demetrio 92.0 % [facility] Comment:METER #: [id number] additional_comment: Junior orta 09/06/2025 8:48 AM EDT 09/06/2025 8:51 AM EDT us Generic External Data Provider LAB BLOOD ORDERAB LES Final Result [facility] [address] [place] [phone] * Influenza A B2 ID NOW ([facility]) (09/06/2025 8:42 AM EDT) IDNOW SERIAL# [id number] [facility] Influenza A Negative Negative [facility] Influenza B2 Negative Negative [facility] Influenza A B2 Note See Note [facility] Comment:The Yarbrough ID NOW In [...] GENERAL ORDERABLES Final Result Performing Organization Address City/[facility]/ZIP Co de Phone Number [facility] [address] [place] [phone] * COVID-19 ID NOW ([facility]) (09/06/2025 8:42 AM EDT) IDNOW SERIAL# [id number] [facility] COVID-19 TEST Negative Negative [facility] COVID-19 NOTE See Note [facility] Comment: Results are for the identification of SARS-CoV2 RNA. TheSARS-CoV2 RNA is generally detectable in respiratory samplesduring the acute phase of infection. Positive results areindicative of the presence of SARS-CoV-2 RNA; clinicalcorrelation with patient history and other diagnosticinformation is necessary to determine patient infectionstatus. Positive results do not rule out bacterial infectionor co- infection with other viruses.Testing facilities within the [facility] and [facility] are required to report all [...] GNOSTICS ORDERABLES Final Result Performing Organization Address City/[facility]/ZIP Co de Phone Number [facility] [address] [place] [phone] * Blood Culture (First) (09/06/2025 8:41 AM EDT) Blood Venous blood specimen / Unknown 09/06/2025 8:41 AM EDT 09/06/2025 8:46 AM EDT Comment:Blood Narrative [facility] - 09/11/2025 10:47 AM EDT Blood Culture (First) No growth after 5 days. Specimen Source: Blood us Generic External Data Provider LAB MICROBIOLOGY - GENERAL ORDERABLES Final Result Performing Organization Address [facility] de Phone Number [facility] [address] [place] [phone] * (ABNORMAL) Lactic Acid (09/06/2025 5:29 AM EDT) Only the most recent of4 resultswithin the time period is included. Lactic Acid 2.4(HH) 0.5 - 2.0 mmol/L [facility] Comment:Critical value for t est(s):LACTIC ACID Results called toand read back by: ELIU Person calling:AMINATA Date:09/06/25 Time:0558 09/06/2025 5:29 AM EDT 09/06/2025 5:33 AM EDT us Generic External Data Provider LAB BLOOD ORDERAB LES Final Result Performing Organization Address [facility] de Phone Number [facility] [address] [place] [phone] * Slide Review (09/06/2025 12:46 AM EDT) Only the most recent of4 resultswithin the time period is included. Slide Review VERIFIED [facility] 09/06/2025 12:4 6 AM EDT 09/06/2025 12:51 AM EDT us Generic External Data Provider LAB BLOOD ORDERAB LES Final Result Performing Organization Address [facility]/ZIP Co de Phone Number [facility] [address] [place] [phone] * HOLD LT BLUE - POSSIBLE COAG (09/06/2025 12:46 AM EDT) Only the most recent of2 resultswithin the time period is included. Hold Lt Blue - Possible Coag SEE NOTE [facility] Comment:Specimen will be hel d untested for 4 hours. Call Hematologyif testing is desired. 09/06/2025 12:4 6 AM EDT 09/06/2025 12:54 AM EDT Generic External Data Provider LAB BLOOD ORDERAB LES Final Result Performing Organization Address [facility] de Phone Number [facility] 5 [place] [address] [phone] * Ethanol (09/06/2025 12:46 AM EDT) Only the most recent of6 resultswithin the time period is included. ETHANOL (MG/DL) IN SER/PLAS 153 mg/dL [facility] Comment:Serum/plasma ethanol results are to be used formedical/treatment purposes only. 09/06/2025 12:4 6 AM EDT 09/06/2025 12:51 AM EDT Generic External Data Provider LAB BLOOD ORDERAB LES Final Result Performing Organization Address [facility] Co de Phone Number [facility] [address] [place] [address] [phone] * (ABNORMAL) Lactic Acid (09/06/2025 12:46 AM EDT) Only the most recent of3 resultswithin the time period is included. Lactic Acid 2.2(HH) 0.5 - 2.0 mmol/L [facility] Comment:Critical value for t est(s): LACTIC ACID Results called toand read back by: NEFTALI Person calling:ALEate:09/06/25 Time:0113 09/06/2025 12:4 6 AM EDT 09/06/2025 12:51 AM EDT us Generic External Data Provider LAB BLOOD ORDERAB LES Final Result Performing Organization Address City/State/[facility] Co de Phone Number [facility] [address] [place] [phone] * XR Chest 2 Views (09/03/2025 12:15 PM EDT) Only the most recent of2 resultswithin the time period is included. Anatomical Region Laterality Modality Chest Radiographic Lamar ging 09/03/2025 12:1 5 PM EDT Narrative 09/03/2025 12:34 PM EDT [address] [address] XRay Report Signed Patient: Charbel Delgado MR#: [id number] : 1970 Acct:[id number] Age/Sex: 55 / M ADM Date: 09/03/25 Loc: .ED Attending Dr: Ordering Physician: Johanna Liao Date of Service: 09/03/25 Procedure(s): XR chest 2V Accession Number(s): [id number] cc: [facility]; Johanna Liao Reason for Exam: hypoxic EXAMINATION: XR CHEST CLINICAL INFORMATION: Hypoxia and back pain. COMPARISON: 08/30/2025 TECHNIQUE: 2 views of the chest were obtained. FINDINGS: Mild cardiac enlargement suspected. Vascular congestion in the hilar regions. Mediastinal contours appear normal. Lungs demonstrate hazy interstitial markings bilaterally with subtle Grgeory B lines in the lung bases suggestive [...] Wang MD in OV> 09/03/25 1231 DD/ 14 TD/TT: 09/03/251224 Regulatory Affairs Specialist: Procedure Note Donotuseinterpreter, Image - 09/03/2025 [place] [address] XRay Report Signed Patient: Isaias Delgado#: [id number] : 1970Acct:[id number] Age/Sex: 55 / MADM Date: 09/03/25 Loc: .ED Attending Dr: Ordering Physician: Johanna Liao Date of Service: 09/03/25 Procedure(s): XR chest 2V Accession Number(s): [id number] cc: [facility]; Johanna Liao Reason for Exam: hypoxic [...] Wang MD in OV> 09/03/25 1231 DD/ 14 TD/TT: 09/03/251224 Regulatory Affairs Specialist: us [facility] External Provider IMG XR PROCEDURES Final Result * Hold Lavender - Possible Hematology (09/03/2025 11:54 AM EDT) Hold Lavender - Possible Hematololgy SEE NOTE [facility] Comment:Specimen will be hel d untested for 8 hours. Call Hematologyif testing is desired. 09/03/2025 11:5 4 AM EDT 09/03/2025 12:02 PM EDT Generic External Data Provider HISTORICAL/NON OR DERABLE LABS Final Result Performing Organization Address City/[facility]/ZIP Co de Phone Number [facility] [address] [place] [address] [phone] * Magnesium (09/03/2025 11:54 AM EDT) Only the most recent of3 resultswithin the time period is included. Magnesium 1.7 1.6 - 2.6 mg/dL [facility] 09/03/2025 11:5 4 AM EDT 09/03/2025 12:03 PM EDT Generic External Data Provider LAB BLOOD ORDERAB LES Final Result Performing Organization Address [facility] Co de Phone Number [facility] [address] [place] [phone] * Lipase (09/03/2025 11:54 AM EDT) Only the most recent of2 resultswithin the time period is included. Lipase 25 8 - 78 U/L [facility] 09/03/2025 11:5 4 AM EDT 09/03/2025 12:03 PM EDT Generic External Data Provider LAB BLOOD ORDERAB LES Final Result Performing Organization Address [facility] Co de Phone Number [facility] [address] [place] [phone] * Urinalysis w/reflex microscopic (08/21/2025 11:09 PM EDT) Color Urine Dark Yellow [facility] Appearance Urine Clear [facility] PH 5.0 5.0 - 9.0 [facility] Glucose Urine UA Negative Negative mg/dL [facility] Urine Blood Negative Negative [facility] Specific [place] - Urine 1.015 1.005 - 1.025 [facility] Urine Protein Negative Neg-Trace mg/dL [facility] Urine Ketones Negative Negative mg/dL [facility] Nitrite Urine Negative Negative [facility] Leukocyte Esterase Urine Negative Negative [facility] 08/21/2025 11:0 9 PM EDT 08/21/2025 11:13 PM EDT Narrative [facility] - 08/21/2025 11:16 PM EDT [id number], Clean Catch us Generic External Data Provider LAB URINE ORDERAB LES Final Result Performing Organization Address City/State/[facility] Co de Phone Number [facility] [address] [place] [phone] * (ABNORMAL) Lipid Panel, Standard (08/21/2025 8:16 PM EDT) Triglycerides 62 <150 mg/dL [facility] Comment:Desirable Triglyceri de: less than 150 mg/dLBorderline High Triglyceride 150-199 mg/dLHigh Triglyceride: 200-499 mg/dLVery High Triglyceride: greater than or equal to 5OO mg/dL Cholesterol 118 <200 mg/dL [facility] Comment:Desirable Cholestero l: less than 200 mg/dLBorderline High Cholesterol: 200-239 mg/dLHigh Cholesterol: greater than 239 mg/dL LDL Cholesterol Calculated 77 <100 mg/dL [facility] Comment:Desirable LDL: less than 100 mg/dLNear Optimal/Above Optimal LDL: 110- 129 mg/dLBorderline High LDL: 130-159 mg/dLHigh LDL: 160-189 mg/dLVery High LDL: greater than or equal to 190 mg/dL HDL Cholesterol 29(L) >40 mg/dL [facility] Comment:Desirable HDL: great er than 40 mg/dL Note: This HDL assay may give artificially low results in patients with liver disease. 08/21/2025 8:16 PM EDT 08/21/2025 8:22 PM EDT us Generic External Data Provider LAB BLOOD ORDERAB LES Final Result Performing Organization Address City/State/[facility] Co de Phone Number [facility] [address] [place] [phone] * XR Foot 3+ Views Right (08/15/2025 8:10 AM EDT) Anatomical Region Laterality Modality Lower Extremities, Foot Right Radiogra phic Imaging 08/15/2025 8:10 AM EDT Narrative 08/15/2025 8:34 AM EDT [address] [address] XRay Report Signed Patient: Charbel Delgado MR#: [id number] : 1970 Acct:[id number] Age/Sex: 55 / M ADM Date: 08/15/25 [place] [facility] Att[place]: Yazmin WALLACE Ordering Physician: Yazmin Shafer Date of Service: 08/15/25 Procedure(s): XR foot RT min 3V Accession Number(s): [id number] cc: Yazmin Shafer; [facility] Reason for Exam: right foot pain [...] Nunn MD in OV> 08/15/25 0831 DD/ 08 TD/TT: 08/15/25 0820 Regulatory Affairs Specialist: Procedure Note Donotuseinterpreter, Image - 08/15/2025 [place] [address] XRay Report Signed Patient: Isaias Delgado#: [id number] : 1970Acct:[id number] Age/Sex: 55 / MADM Date: 08/15/25 [place] [facility] [place]: Yazmin WALLACE Ordering Physician: Yazmin Shafer Date of Service: 08/15/25 Procedure(s): XR foot RT min 3V Accession Number(s): [id number] cc: Yazmin Shafer; [facility] Reason for Exam: right foot pain [...] Nunn MD Signed By: <Electronically signed by oDny Nunn MD in OV> 08/15/25830 DD/ 9 TD/TT: 08/15/25819 Regulatory Affairs Specialist: [facility] External Provider IMG XR PROCEDURES Final Result * B Type Natriuretic Peptide (BNP) (07/06/2025 5:58 PM EDT) Only the most recent of2 resultswithin the time period is included. B Type Natriuretic Peptide 100 <100 pg/mL [facility] 07/06/2025 5:58 PM EDT 07/06/2025 6:06 PM EDT Generic External Data Provider LAB BLOOD ORDERAB LES Final Result Performing Organization Address City/State/[facility] Co de Phone Number [facility] [address] [place] [phone] * CT Chest w/ Contrast (06/19/2025 4:46 AM EDT) Anatomical Region Laterality Modality Body, Chest Computed Tomogra phy 06/19/2025 4:46 AM EDT Narrative 06/19/2025 4:48 AM EDT [address] [address] [address] Scan Report Signed Patient: Charbel Delgado MR#: [id number] : 1970 Acct:[id number] Age/Sex: 55 / M ADM Date: 06/19/25 Loc[place] [facility] [place]: Mercedes Hogan MD Ordering Physician: David Galvez PA-C Date of Service: 06/19/25 Procedure(s): CT chest w IV con Accession Number(s): [id number] cc: [facility]; David Galvez PA-C Report Number: [id number]: Total DLP = 265.00 mGy-cm CLINICAL HISTORY: [...] in OV> 06/19/25446 DD/ 5 TD/TT: 06/19/25445 Regulatory Affairs Specialist: Procedure Note Donotuseinterpreter, Image - 06/19/[address] [place] [address] [address] Scan Report Signed Patient: Isaias Delgado#: [id number] : 1970Acct:[id number] Age/Sex: 55 / MADM Date: 06/19/25 Loc: [facility] [place]: Mercedes Hogan MD Ordering Physician: David Galvez PA-C Date of Service: 06/19/25 Procedure(s): CT chest w IV con Accession Number(s): [id number] cc: [facility]; David Galvez PA-C Report Number: [id number]: Total DLP = 265.00 mGy-cm CLINICAL HISTORY: [...] in OV> 06/19/25446 DD/ 5 TD/TT: 06/19/25445 Regulatory Affairs Specialist: [facility] External Provider IMG CT PROCEDURES Edited Result - Final from Last 3 Months Insurance [place] [id number] [employer] [facility] C3 Care Teams Manager Employment Relationship Specialty Start Date End Date Charbel Calles RN [address] [place] [phone] Registered Nurse Family Medicine 09/11/25 Conor Vidal 09/11/25
--- OUTSIDE RECORDS SUMMARY | 2025-09-13 20:22 | XMS_ITS ---
Author Organization [employer] Address [address] [place] [address] [address] [place] [address] Care Team Providers Care Field Irrigation Worker Name Role Phone Charbel Calles RN Unavailable [phone] Conor Vidal Unavailable CM Complex Status:Outreach In Progress (Enrolling) Start date:09/11/2025 Enrollment reason:ADT Feed Overview ED- [place] [facility] [place]. Case Team Name Relationship Phone Charbel Calles RN(Responsible Staff) Registered [facility] [phone] Continued Care and Services Coordination
--- OUTSIDE RECORDS SUMMARY | 2025-09-13 20:22 | XMS_ITS | Encounter Summary ---
Author Organization Formerly [facility] Address [address] [place] [phone] Phone Care Team Providers Care Filler Feeder Name Role Phone [facility], [facility] Primary Care Provider Pcp, Unknown Unavailable Unavailable Encounter Details Date Type Department Care Team (Late st Contact Info) Description 01/04/2024 Transcribe Orders [facility] Laboratory [address] [place] [phone] Missy Miranda PA [address] [place] [phone] [email or web address] Need for hepatitis C screening test (Primary [...] FERRITIN 168 30 - 400 ug/L [facility] Blood 01/04/2024 9:22 AM EST 01/04/2024 9:53 AM EST Missy WALLACE LAB BLOOD ORDERABLES Fin al Result Performing Organization Address City/[facility] Co de Phone Number [address] [address] * (ABNORMAL) PT-INR (01/04/2024 9:22 AM EST) [facility] PT 15.9(H) 10.2 - 12.9 sec [facility] INR 1.4(H) 0.9 - 1.1 [facility] Comment:Therapeutic range fo r oral Vitamin K antagonists: 2.0-3.5 Blood 01/04/2024 9:22 AM EST 01/04/2024 9:53 AM EST Missy WALLACE LAB BLOOD ORDERABLES Fin al Result Performing Organization Address City/[facility]/ZIP Co de Phone Number [address] [address] * Iron and iron binding capacity (01/04/2024 9:22 AM EST) IRON 81 45 - 160 ug/dL [facility] IRON BINDING CAPACITY 326 228 - 428 ug/dL [facility] TRANSFERRIN SATURAT. 25 20 - 55 % [facility] Blood 01/04/2024 9:22 AM EST 01/04/2024 9:53 AM EST Missy WALLACE LAB BLOOD ORDERABLES Fin al Result Performing Organization Address [facility] de Phone Number [address] [address] * Lipase (01/04/2024 9:22 AM EST) LIPASE 35 16 - 63 U/L [facility] Blood 01/04/2024 9:22 AM EST 01/04/2024 9:53 AM EST Missy WALLACE LAB BLOOD ORDERABLES Fin al Result Performing Organization Address [facility] de Phone Number [address] [address] * Hepatitis C antibody, qualitative (01/04/2024 9:22 AM EST) HCV NON-REACTIV E NON-REACTI VE [facility] Blood 01/04/2024 9:22 AM EST 01/04/2024 9:53 AM EST Missy WALLACE LAB BLOOD ORDERABLES Fin al Result Performing Organization Address [facility] de Phone Number [address] [address] * Hepatitis B surface antibody (01/04/2024 9:22 AM EST) HBV SURFACE ANTIBODY Negative [facility] Comment: Unvaccinated: Negative Vaccinated: Positive Blood 01/04/2024 9:22 AM EST 01/04/2024 9:53 AM EST Missy WALLACE LAB BLOOD ORDERABLES Fin al Result Performing Organization Address City/[facility]/ZIP Co de Phone Number [address] [address] * Hepatitis B surface antigen (01/04/2024 9:22 AM EST) HBV SURFACE ANTIGEN NON-REACTI VE NON-REACTI VE [facility] Blood 01/04/2024 9:22 AM EST 01/04/2024 9:53 AM EST Missy WALLACE LAB BLOOD ORDERABLES Fin al Result Performing Organization Address [facility] Co de Phone Number [address] [address] * Hepatitis B core antibody, total (01/04/2024 9:22 AM EST) HEP B CORE AB, TOT NON-REACTI VE NON-REACTI VE [facility] Blood 01/04/2024 9:22 AM EST 01/04/2024 9:53 AM EST Missy WALLACE LAB BLOOD ORDERABLES Fin al Result Performing Organization Address [facility] Co de Phone Number [address] [address] * HEPATITIS A ANTIBODY, TOTAL (01/04/2024 9:22 AM EST) HAV TOTAL AB NON-REACTI VE NON-REACTI VE [facility] Blood 01/04/2024 9:2 2 AM EST 01/04/2024 9:53 AM EST Missy WALLACE LAB BLOOD ORDERABLES Fin al Result Performing Organization Address City/[facility] Co de Phone Number [address] [address] * (ABNORMAL) GGT (Gamma glutamyl transferase) (01/04/2024 9:22 AM EST) GGT 54(H) 11 - 51 U/L [facility] Blood 01/04/2024 9:22 AM EST 01/04/2024 9:53 AM EST Missy WALLACE LAB BLOOD ORDERABLES Fin al Result [address] [address] * C-Reactive Protein (01/04/2024 9:22 AM EST) Pathologist [facility] C REACTIVE PROTEIN <3.0 0.0 - 4.0 mg/L [facility] Blood 01/04/2024 9:22 AM EST 01/04/2024 9:53 AM EST Missy WALLACE LAB BLOOD ORDERABLES Fin al Result Performing Organization Address City/[facility] Co de Phone Number [address] [address] * (ABNORMAL) Comprehensive metabolic panel (01/04/2024 9:22 AM EST) Pathologist [facility] SODIUM 137 133 - 146 mmol/L [facility] POTASSIUM 4.5 3.3 - 5.1 mmol/L [facility] CHLORIDE 105 96 - 108 mmol/L [facility] CO2 22 21 - 35 mmol/L [facility] BUN 14 6 - 19 mg/dL [facility] CREATININE 0.80 0.5 - 1.5 mg/dL [facility] GLUCOSE 104(H) 70 - 99 mg/dL [facility] ALBUMIN 4.1 3.9 - 4.8 g/dL [facility] TOTAL PROTEIN 8.1(H) 6.5 - 8.0 g/dL [facility] CALCIUM 10.4(H) 8.4 - 10.3 mg/dL [facility] ALKALINE PHOSPHATASE 118(H) 39 - 117 U/L [facility] TOTAL BILIRUBIN 0.6 0.0 - 1.2 mg/dL [facility] AST 25 0 - 37 U/L [facility] ALT 7 0 - 40 U/L [facility] GLOBULIN 4.0 1 - 4.8 g/dL [facility] EGFR 105 >59 mL/min/1.7 3m2 [facility] Comment:Estimated glomerular filtration rate calculated using the CKD-EPI refit equation. ANION GAP 15 10 - 20 mmol/L [facility] Blood 01/04/2024 9:22 AM EST 01/04/2024 9:53 AM EST us Missy WALLACE LAB BLOOD ORDERABLES Fin al Result Performing Organization Address City/State/[facility] Co de Phone Number [address] [address] * (ABNORMAL) CBC and differential (01/04/2024 9:22 AM EST) WBC 3.17(L) 4.00 - 11.00 K/uL [facility] RBC 3.41(L) 4.23 - 5.82 M/uL [facility] HGB 10.7(L) 13.4 - 17.5 g/dL [facility] HCT 33.8(L) 37.0 - 51.0 % [facility] PLT 64(L) 140 - 430 K/uL [facility] Comment:Consistent with prev ious result. MCV 99.1(H) 78.0 - 97.0 fL [facility] MCH 31.4 25.0 - 33.0 pg [facility] MCHC 31.7(L) 32.0 - 36.0 g/dL [facility] RDW 13.0 11.0 - 15.0 % [facility] MPV 13.2(H) 8.4 - 12.8 fl [facility] DIFF METHOD Auto [facility] NEUTS 57.2 43.0 - 75.0 % [facility] LYMPHS 24.9 18.2 - 47.4 % [facility] MONOS 12.0(H) 4.00 - 11.00 % [facility] EOS 4.7 0.0 - 8.0 % [facility] BASOS 0.9 0.0 - 2.0 % [facility] Granulocytes, immature (%) 0.3 0.0 - 0.9 % [facility] ABSOLUTE NEUTS 1.81 1.80 - 7.70 K/uL [facility] ABSOLUTE LYMPHS 0.79(L) 1.00 - 3.10 K/uL [facility] ABSOLUTE MONOS 0.38 0.20 - 0.80 K/uL [facility] ABSOLUTE EOS 0.15 0.00 - 0.80 K/uL [facility] ABSOLUTE BASOS 0.03 0.00 - 0.09 K/uL [facility] Granulocytes, immature 0.01 0.00 - 0.05 K/uL [facility] Blood 01/04/2024 9:22 AM EST 01/04/2024 9:53 AM EST [facility] LAB BLOOD ORDERABLES Fin al Result [address] [address] * (ABNORMAL) Immunoglobulin A (01/04/2024 9:22 AM EST) Pathologist [facility] IgA 436(H) 70 - 400 mg/dL [facility] Blood 01/04/2024 9:22 AM EST 01/04/2024 9:53 AM EST [facility] Nathaly Miranda [place] LAB BLOOD ORDERABLES Fin al Result [address] [address] * Tissue transglutaminase IgA (01/04/2024 9:22 AM EST) TTG IGA ANTIBODY 1.9 <4.0 (Negative) U/mL [facility] [address] Blood 01/04/2024 9:22 AM EST 01/04/2024 9:53 AM EST Missy WALLACE LAB BLOOD ORDERABLES Fin al Result [facility] [address] [address] * Smooth Muscle Antibody (01/04/2024 9:22 AM EST) SMOOTH MUSCLE AB POSITIVE AT 1:20 [facility] Comment: Performing Physician, Max Jimenez M.D., [id number] Normal: Negative at 1:20 Blood 01/04/2024 9:22 AM EST 01/04/2024 9:53 AM EST Missy WALLACE LAB BLOOD ORDERABLES Fin al Result Performing Organization Address [facility] Co de Phone Number [address] [address] * Ceruloplasmin (01/04/2024 9:22 AM EST) CERULOPLASMIN 31 20 - 60 mg/dL [facility] Blood 01/04/2024 9:22 AM EST 01/04/2024 9:53 AM EST Missy WALLACE LAB BLOOD ORDERABLES Fin al Result Performing Organization Address [facility] Co de Phone Number [address] [address] * (ABNORMAL) Antinuclear antibody (JERMAIN) (01/04/2024 9:22 AM EST) JERMAIN SCREEN ON HEP 2 Positive(A ) Negative [facility] Comment:An JERMAIN Titer has bee n reflexed. The results will follow. Blood 01/04/2024 9:22 AM EST 01/04/2024 9:53 AM EST Missy WALLACE LAB BLOOD ORDERABLES Fin al Result Performing Organization Address City/[facility]/ZIP Co de Phone Number [facility] [address] [address] * Anti-Mitochondrial Antibody (AMA) (01/04/2024 9:22 AM EST) MITOCHONDRIAL AB NEGATIVE AT 1:20 [facility] Comment: Performing Physician, Max Jimenez M.D., [id number] Normal: Negative at 1:20 Blood 01/04/2024 9:22 AM EST 01/04/2024 9:53 AM EST Missy WALLACE LAB BLOOD ORDERABLES Fin al Result [address] [address] * Amylase (01/04/2024 9:22 AM EST) Pathologist [facility] AMYLASE 86 28 - 100 U/L [facility] Blood 01/04/2024 9:22 AM EST 01/04/2024 9:53 AM EST Missy WALLACE LAB BLOOD ORDERABLES Fin al Result Performing Organization Address City/[facility]/ZIP Co de Phone Number [address] [address] * AFP (non-maternal specimens) (01/04/2024 9:22 AM EST) Pathologist [facility] AFP (NON-MATERNAL) 4.7 <7.9 ng/mL [facility] Comment: Test Methodology Filipe [id number] Patient results determined by assays using different manufacturers or methods may not be comparable. Blood 01/04/2024 9:22 AM EST 01/04/2024 9:53 AM EST Missy WALLACE LAB BLOOD ORDERABLES Fin al Result Performing Organization Address City/[facility]/ZIP Co de Phone Number [address] [address] * Zkqug-3-ksctnorbtcb phenotyping (01/04/2024 9:22 AM EST) ALPHA 1 ANTITRYPSIN 173 100 - 190 mg/dL [facility] [address] Comment: (NOTE) ADDITIONAL INFORMATION Method: Nephelometry A1A PHENOTYPE MM bands [facility] [address] Comment: (NOTE) A single M isoform is detected. In the context of a normal gymwq-5-pcnblrlckyp concentration, this is consistent with an MM phenotype. ADDITIONAL INFORMATION Method: Isoelectric Focusing, This assay identifies the phenotype of the circulating xdtpl-6-aiejwxdfigl (A1A) protein. If the patient is on replacement therapy or has been recently transfused, the phenotype will detect patient and replacement or transfused plasma A1A protein. This test also cannot detect a null allele which could be responsible for an A1A deficiency. Blood 01/04/2024 9:22 AM EST 01/04/2024 9:53 AM EST Missy WALLACE LAB BLOOD ORDERABLES Fin al Result [facility] [address] [place] [address] documented in this encounter Visit Diagnoses Diagnosis Need for hepatitis C screening test- Primary Special screening examination for other specified viral diseases Hepatic cirrhosis, unspecified hepatic cirrhosis type, unspecified whether ascites present Esophageal varices in alcoholic cirrhosis Esophageal varices without mention of bleeding documented in this encounter Care Teams Filler Feeder Relationship Specialty Start Date End Date [facility] [address] [place] [address] PCP - General 10/07/23 Pcp, Unknown 10/07/23 documented as of this encounter Additional Source Comments The information contained in this document represents components of the legal health record. It is not the complete legal health record.[facility]
--- OUTSIDE RECORDS SUMMARY | 2025-09-13 20:22 | XMS_ITS | Encounter Summary ---
Author Organization [employer] Address [address] [place] [address] [place] [address] Care Team Providers Care Senior Linux Systems Engineer Name Role Phone Charbel Calles RN Unavailable [phone] Conor Vidal Unavailable Encounter Details Date Type Department Care Team (Latest Contact Info) Description 09/08/2025 Results Follow-Up [facility] [address] [place] [address] External Provider, [facility] CTA Chest PE Protocal, XR [...] filedocumented in this encounter Care Teams Senior Linux Systems Engineer Relationship Specialty Start Date End Date Charbel Calles RN [address] [place] [id number] Registered Nurse Family Medicine 09/11/25 Conor Vidal 09/11/25 documented as of this encounter
--- OUTSIDE RECORDS SUMMARY | 2025-09-13 20:22 | XMS_ITS | Encounter Summary ---
Author Organization [facility] Address [address] [place] [address] Phone Care Team Providers Care Packager Hand Name Role Phone [facility], [facility] Primary Care Provider Pcp, Unknown Unavailable Unavailable Encounter Details Date Type Department Care Team ([facility] st Contact Info) Description 10/31/2023 Procedure Pass [facility] Endoscopy Admitting Dept Virtual Department [address] [place] [address] Social History Tobacco Use Types Packs/Day Years [...] on filedocumented in this encounter Care Teams Packager Hand Relationship Specialty Start Date End Date [facility] [address] [place] [address] PCP - General 10/07/23 Pcp, Unknown 10/07/23 documented as of this encounter Additional Source Comments The information contained in this document represents components of the legal health record. It is not the complete legal health record.[facility]
--- OUTSIDE RECORDS SUMMARY | 2025-09-13 20:22 | XMS_ITS | Encounter Summary ---
Author Organization [employer] Address [address] [place] [address] 7 [place] [address] Care Team Providers Care Photographic Equipment Inspector Name Role Phone Charbel Calles RN Unavailable [phone] Conor Vidal Unavailable Encounter Details Date Type Department Care Team ([facility] st Contact Info) Description 09/11/2025 Patient Outreach [facility] [address] [place], [place] [id number] Edith Zuniga RN Social History Tobacco Use [...] Emergency Room Visit Date: 09/10/25 Facility: [facility] Diagnosis: ETOH Disposition: Discharged home Discharge summary in the chart: Yes Please contact for a telehealth RN visit documented in this encounter Plan of Treatment Not on file documented as of this encounter Visit Diagnoses Not on filedocumented in this encounter Care Teams Photographic Equipment Inspector Relationship Specialty Start Date End Date Charbel Calles RN [address] [place] [address] Registered Nurse Family Medicine 09/11/25 Conor Vidal 09/11/25 documented as of this encounter
--- OUTSIDE RECORDS SUMMARY | 2025-09-13 20:22 | XMS_ITS | Encounter Summary ---
Author Organization [facility] Address [address] [facility] [address] [place] [address] Phone Care Team Providers Care Systems Mgr Name Role Phone Elbert Hayward MD Primary Care Provider [facility], [facility] Primary Care Provider Pcp, Unknown Unavailable Unavailable Encounter Details Date Type Department Care Team (Late st Contact Info) Description 10/06/2023 Procedure Pass [facility], Ct Scan - [address] [address] Social History Tobacco Use Types Packs/Day Years [...] on filedocumented in this encounter Care Teams Systems Mgr Relationship Specialty Start Date End Date Elbert Hayward MD PCP - General 05/13/14 10/06/23 [facility], MD Marya [address] [place] [address] PCP - General 10/07/23 Pcp, Unknown 10/07/23 documented as of this encounter Additional Source Comments The information contained in this document represents components of the legal health record. It is not the complete legal health record.[facility]
--- OUTSIDE RECORDS SUMMARY | 2025-09-13 20:22 | XMS_ITS | Encounter Summary ---
Author Organization [facility] Address [address] [facility] [address] [place] [address] Phone Care Team Providers Care Forestry Technical Officer Name Role Phone [facility], [facility] Primary Care Provider Pcp, Unknown Unavailable Unavailable Encounter Details Date Type Department Care Team (Late st Contact Info) Description 02/02/2024 Procedure Pass [facility] Endoscopy Admitting Dept Virtual Department [address] [place] [address] Social History Tobacco Use Types Packs/Day Years [...] on filedocumented in this encounter Care Teams Forestry Technical Officer Relationship Specialty Start Date End Date [facility] [address] [place] [address] PCP - General 10/07/23 Pcp, Unknown 10/07/23 documented as of this encounter Additional Source Comments The information contained in this document represents components of the legal health record. It is not the complete legal health record.[facility]
--- OUTSIDE RECORDS SUMMARY | 2025-09-13 20:22 | XMS_ITS ---
Author Organization [employer] Address [address] [place] [address] 7 [place] [address] Care Team Providers Care Roof Truss Builder Name Role Phone Charbel Calles RN Unavailable [phone] Conor Vidal Unavailable [facility] Status:Outreach In Progress (Enrolling) Start date:09/11/2025 Enrollment reason:ADT Feed Overview ED- Pt went to [facility] ED on 09/10/25. Case Team Name Relationship Phone Conor Vidal(Responsible Staff) [phone] Continued Care and Services Coordination
[2025-09-13 20:24] VITALS: BP 94/51; PULSE 80; RESP 18; TEMP 36.6; O2SAT 91
--- NOTE | 2025-09-13 20:39 | ECG_ITS ---
Test Reason : DYSPNEA Blood Pressure : */* mmHG Vent. Rate : 74 BPM Atrial Rate : 74 BPM P-R Int : 146 ms QRS Dur : 90 ms QT Int : 428 ms P-R-T Axes : 51 29 38 degrees QTcB Int : 475 ms Normal sinus rhythm Minimal voltage criteria for LVH, may be normal variant ( Sokolow-Cunningham ) Borderline ECG When compared with ECG of 12-Sep-2025 20:19, No significant changes seen Referred By: Alley Del Rosario Electronically Signed By: EDITA HALE
--- NOTE | 2025-09-13 21:12 | MHC.EDTECH ---
Pt refused blood work. Nurse aware.
--- NOTE | 2025-09-13 22:04 | PC.NURSE ---
pt refused IV access and blood work. made aware.
[2025-09-13 22:54] LABS: MANUAL DIFF FLAG NO
[2025-09-13 22:57] LABS: Hematocrit 27.0 % (42.0-52.0); Hemoglobin 8.5 g/dl (14.0-18.0); Imm Gran Abs Auto 0.01 X10*3/uL (0.00-0.03); Imm Gran Pct Auto 0.3 % (0.0-0.4); Lymphocytes Absolute Auto 0.9 X10*3/uL (1.2-4.9); Mean Corpuscular HGB Conc 31.5 g/dl (31.0-36.0); Mean Corpuscular Hemoglobin 30.1 pg (27.0-33.0); Mean Corpuscular Volume 95.7 fL (80.0-98.0); NRBC Abs Auto 0.000 X10*3/uL (0.0-0.012); NRBC Pct Auto 0.0 /100WBC (0.0-0.2); Red Blood Count 2.82 X10*6/uL (4.60-5.80); White Blood Count 3.6 X10*3/uL (4.8-10.8)
[2025-09-13] MEDS: Albuterol Sulfate 2.5 MG, Albuterol/Iprat 2.5/0.5MG 3 ML 3 ML INHALE (23:01)
[2025-09-13 23:04] VITALS: PULSE 78; RESP 16; O2SAT 91
[2025-09-13 23:11] LABS: Alanine Aminotransferase 10 U/L (0-40); Albumin Level 3.0 g/dL (3.5-5.0); Alkaline Phosphatase 122 U/L (39-117); Anion Gap 12 (12-20); Aspartate Amino Transferase 41 U/L (5-37); Blood Urea Nitrogen 12 mg/dL (9-16); Calcium 8.0 mg/dL (8.4-10.2); Carbon Dioxide 19 mmol/L (22-29); Chloride 115 mmol/L (96-108); Creatinine Clr Calc Pharmacy 98.7; Estimated Glomerular Filt Rate > 60; Magnesium 1.7 mg/dL (1.6-2.6); Potassium 3.6 mmol/L (3.3-5.1); Sodium 142 mmol/L (135-145); Total Protein 7.0 g/dL (6.5-8.0)
[2025-09-13 23:14] VITALS: BP 107/50; PULSE 80; RESP 16; TEMP 36.4; O2SAT 90
[2025-09-13 23:18] LABS: NT Pro B Type Natriuretic Pept 174.0 pg/mL (<300)
[2025-09-13 23:20] LABS: Troponin-I High Sensitivity < 2.7 ng/L (<3.5-35.0)
[2025-09-13 23:28] LABS: Platelet Count 56 X10*3/uL (160-400)
[2025-09-13 23:33] LABS: Resp Syncy Virus RNA Qual PCR NEGATIVE (Negative); SARS COV2 PCR INHOUSE NEGATIVE (Negative)
[2025-09-13] MEDS: Magnesium Sulfate/H2O 2 GM/50 ML PIGGYBACK IV (23:51)
[2025-09-13 23:54] VITALS: BP 106/58; PULSE 89; RESP 17; TEMP 36.4; O2SAT 89
[2025-09-14] VITALS (15 sets, daily range): BP systolic 99–125; BP diastolic 46–63; PULSE 66–112; RESP 14–18; TEMP 36.2–37.6; O2SAT 83–95
[2025-09-14 00:51] LABS: Reflex Lactate? Lactic Acid Added
--- NOTE | 2025-09-14 01:22 | PC.NURSE ---
Pt keeps removing oxymask; RN has to keep educating pt on the importance of keeping it on.
[2025-09-14 01:57] LABS: ~Lactic Acid-LAB USE ONLY 2.0 mmol/L (0.5-2.0)
[2025-09-14 02:23] LABS: Appearance Urine Clear; Glucose Urine UA Negative (Negative); PH 5.5 (5.0-9.0); Specific Gravity - Urine 1.010 (1.005-1.025); UMIC TRIGGER UACC YES
[2025-09-14 02:29] LABS: Cannabinoid Screen Urine Not Detected (Not Detect)
[2025-09-14] MEDS: Albuterol/Iprat 2.5/0.5MG 3 ML AMPUL.NEB INHALE (04:28)
[2025-09-14] MEDS: Furosemide 40 MG/4 ML VIAL IVPUSH (04:51)
--- NOTE | 2025-09-14 05:03 | PC.NURSE ---
While RN was on break, tech did an ambulation trial with pt. pt was on 4L NC and de stated to 83. made aware.
--- NOTE | 2025-09-14 06:21 | PC.NURSE ---
RN gave report to ALURA gastelum in overflow.
--- NOTE | 2025-09-14 12:51 | PHA.MEDREC ---
Pharmacy Consult ? Medication Reconciliation Pharmacy has completed the medication reconciliation. Spoke with patient who claimed he has two RX bottles of regular pills . When I explained that I have no recent pharmacy claims he explained that he wasn't taking the regular pills anyway. Patient kept bringing up these two rx bottles however could not identify what the medications were and couldn't produce these two bottles. No medications are being held in the pharmacy. Patient did confirm at the end that he has not been taking anything in months.
--- NOTE | 2025-09-14 12:55 | PC.NURSE ---
Assumed care of patient in ED overflow unit at 1130. Patient alert and oriented x 3, vague and confused at times on situation. Fine crackles to lower lung bases, on 4L NC, unlabored breathing. VSS, Using urinal at bedside. Bed alarm on for safety and call harris in reach. Encouraged to use call harris for all needs.
--- NOTE | 2025-09-14 13:11 | MHC.CM.ED ---
Received case management consult overnight. Patient is a frequent flyer for the ER d/t ETOH abuse. Patient frequently leaves AMA. Patient declines detox. Patient's CIWA will need to be 0 for at least 24 hours before SNF placement can be found. Physical therapy eval not available until tomorrow, Saturday 09/15. Brooke WALLACE aware. Continue to monitor for d/c needs.
--- NOTE | 2025-09-15 03:24 | PC.NURSE ---
0300 Pt alert oriented to person and place, intermittently forgetful to situation. Patient requires 4LNC Oxygen as O2sats drop to 85-86% on RA with ambulation. Patient has been cooperative with care tonight. Watching television, eating a snack and sleeping through the night. CIWA is zero presently, PT to evaluate mobility today. Bed in lowest setting, locked and alarmed, call harris within reach. Pt encouraged and demonstrated the use of call button.
[2025-09-15 05:25] VITALS: BP 114/55; PULSE 72; RESP 16; TEMP 37.2; O2SAT 94
[2025-09-15 07:51] VITALS: O2SAT 85
[2025-09-15 09:30] VITALS: BP 104/54; PULSE 70; RESP 18; TEMP 36.7; O2SAT 94
--- NOTE | 2025-09-15 09:57 | MHC.CM.ED ---
Addendum entered by Mimi Holden 09/15/25 10:45: [facility] is able to offer a bed. Patient accepts. MDS and Level 1 will be completed, sent to [facility] and to [facility]. Original Note: Patient remains in ER overflow. Physical therapy eval completed. Short term rehab is recomemnded. Met with patient in regards to discharge planning. Patient understands he needs oxygen at this time. Agreeable to SNF placement. Aware he will have to stay at the facility and will not be able to drink alcohol. Patient verbalizes understanding and is agreeable. Referral will be broadcasted locally. Continue to monitor for d/c needs.
[2025-09-15 14:00] VITALS: BP 119/61; PULSE 92; RESP 16; TEMP 36.8; O2SAT 94
[2025-09-15 19:50] VITALS: BP 120/55; PULSE 74; RESP 18; TEMP 37.3; O2SAT 92
[2025-09-16 05:53] VITALS: BP 131/64; PULSE 64; RESP 16; TEMP 36.8; O2SAT 92
[2025-09-16 08:47] VITALS: BP 109/59; PULSE 64; RESP 16; TEMP 36.9; O2SAT 95
--- NOTE | 2025-09-16 13:29 | MHC.CM.ED ---
Pt has been accepted to [facility] - at the time of this note, facility is awaiting PASRR level 2. Pt will need BLS transport.
[2025-09-16 13:51] VITALS: BP 107/52; PULSE 77; RESP 16; TEMP 36.9; O2SAT 92
--- NOTE | 2025-09-16 18:06 | MHC.CM.ED ---
09/17 9am booked transport to [facility] via [facility]. Med nec with ED US. Facility aware.
[2025-09-16 20:00] VITALS: BP 119/59; PULSE 70; RESP 12; TEMP 36.8; O2SAT 93
--- NOTE | 2025-09-17 04:06 | PC.NURSE ---
Assumed care of patient at 1900, A/O x4 . Pleasant cooperative and compliant with care. Able to make needs known. Patient up to bathroom/urinal stand by assist, requiring 4L NC . VSS Purposeful rounding performed, safety measures in place, call harris within reach. Patient scheduled to go to [facility] rehab at 9 am.
[2025-09-17 05:05] VITALS: BP 109/51; PULSE 80; RESP 14; TEMP 36.6; O2SAT 95
--- NOTE | 2025-09-17 07:55 | PC.NURSE ---
Addendum entered by Krunal Conklin RN 09/17/25 08:03: COWS = 1 CIWA = 0 Original Note: This Rn assumed care of patient @ 0700 Patient on O2 4L NC, Patient O2 92% denies SOB at this time Denies pain Patient high fall risk, bed alarm on and functioning. Patient refused yellow socks. Socks placed at end of bed, yellow band on right arm IV 20 L wrist and 20G in Right arm Patient finished up breakfast Patient awaiting transfer to [facility]
[2025-09-17 08:47] VITALS: BP 109/51; PULSE 80; RESP 14; TEMP 36.6; O2SAT 95
--- NOTE | 2025-09-17 10:15 | PC.NURSE ---
Attempted to call [facility] for nurse to nurse report 3 attempts made and calls were sent to unused voicemail box Patient discharged with EMS
== END 2025-09-17 09:38 ==
PROVIDERS: Physician Assistant Medical; Emergency Provider Emergency Medicine; PCP Internal Medicine
DX: F10.129 Alcohol abuse with intoxication, unspecified (principal); Y90.8 Blood alcohol level of 240 mg/100 ml or more; J96.11 Chronic respiratory failure with hypoxia; J40 Bronchitis, not specified as acute or chronic; N39.0 Urinary tract infection, site not specified; Z59.00 Homelessness unspecified; Z03.818 Encounter for observation for suspected exposure to other biological agents ruled out
CPT/HCPCS: 36415; 71045; 80048; 80076; 80307; 81001; 83605; 83735; 83880; 84484; 85025; 87040; 87637; 93005; 94640; 96361; 96365; 96366; 96367; 96375; 97162; 99285; J0456; J0696; J1938; J2919; J3475

== ENCOUNTER → 2025-09-13 20:38 | Outpatient (BNV) | payer MEDICAID, SELFPAY | PROVIDERS: Emergency Provider Emergency Medicine; Visit Provider Radiology Neuroradiology | DX: R91.8 Other nonspecific abnormal finding of lung field (principal) | CPT/HCPCS: 71045 ==

== ENCOUNTER → 2025-09-13 20:39 | Outpatient (BNV) | payer MEDICAID, SELFPAY | PROVIDERS: Emergency Provider Emergency Medicine; Visit Provider Internal Medicine | DX: R06.00 Dyspnea, unspecified (principal) | CPT/HCPCS: 93010 ==

== ENCOUNTER 2025-09-26 23:48 | Emergency (ER) | payer MEDICAID, SELFPAY ==
[2025-09-26 23:54] VITALS: BP 138/57; PULSE 83; O2SAT 96; BMI 24.1
[2025-09-27] VITALS (7 sets, daily range): BP systolic 90–98; BP diastolic 47–48; PULSE 68–79; RESP 16–19; TEMP 36.4–36.6; O2SAT 88–97
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
--- NOTE | 2025-09-27 00:20 | PC.NURSE ---
desat to 84% room air, pt placed on 2 L 02, SP02 91% o 2 L
--- OUTSIDE RECORDS SUMMARY | 2025-09-27 01:43 | XMS_ITS | Encounter Summary ---
Author Organization [facility] Address [address] [facility] [address] [place] [address] Phone Care Team Providers Care Nascar Driver Name Role Phone [facility], [facility] Primary Care Provider Pcp, Unknown Unavailable Unavailable Encounter Details Date Type Department Care Team ([facility] st Contact Info) Description 10/31/2023 Procedure Pass [facility] Endoscopy Admitting Dept Virtual Department [address] [place] [phone] Social History Tobacco Use Types Packs/Day Years [...] on filedocumented in this encounter Care Teams Nascar Driver Relationship Specialty Start Date End Date [facility] [address] [place] [address] PCP - General 10/07/23 Pcp, Unknown 10/07/23 documented as of this encounter Additional Source Comments The information contained in this document represents components of the legal health record. It is not the complete legal health record.[facility]
--- OUTSIDE RECORDS SUMMARY | 2025-09-27 01:44 | XMS_ITS | Encounter Summary ---
Author Organization [facility] Address [address] [facility] [address] [place] [address] Phone Care Team Providers Care [employer] Handler Name Role Phone [facility], [facility] Primary Care Provider Pcp, Unknown Unavailable Unavailable Encounter Details Date Type Department Care Team (Late st Contact Info) Description 01/04/2024 Transcribe Orders [facility] [address] [address] Missy Miranda PA [address] [place] [id number] [email or web address] Need for hepatitis C screening test (Primary [...] EST) FERRITIN 168 30 - 400 ug/L [facility] Blood 01/04/2024 9:22 AM EST 01/04/2024 9:53 AM EST Missy WALLACE LAB BLOOD BKR ORDERABLES Final Result Performing Organization Address City/[facility]/ZIP Co de Phone Number [address] [address] * (ABNORMAL) PT-INR (01/04/2024 9:22 AM EST) Pathologist [facility] PT 15.9(H) 10.2 - 12.9 sec [facility] INR 1.4(H) 0.9 - 1.1 [facility] Comment:Therapeutic range fo r oral Vitamin K antagonists: 2.0-3.5 Blood 01/04/2024 9:22 AM EST 01/04/2024 9:53 AM EST Missy WALLACE LAB BLOOD BKR ORDERABLES Final Result Performing Organization Address City/[facility]/ZIP Co de Phone Number [address] [address] * Iron and iron binding capacity (01/04/2024 9:22 AM EST) Pathologist [facility] IRON 81 45 - 160 ug/dL [facility] IRON BINDING CAPACITY 326 228 - 428 ug/dL [facility] TRANSFERRIN SATURAT. 25 20 - 55 % [facility] Blood 01/04/2024 9:22 AM EST 01/04/2024 9:53 AM EST Missy WALLACE LAB BLOOD BKR ORDERABLES Final Result Performing Organization Address City/[facility]/ZIP Co de Phone Number [address] [address] * Lipase (01/04/2024 9:22 AM EST) Pathologist [facility] LIPASE 35 16 - 63 U/L [facility] Blood 01/04/2024 9:22 AM EST 01/04/2024 9:53 AM EST Missy WALLACE LAB BLOOD BKR ORDERABLES Final Result Performing Organization Address [facility]/ZIP Co de Phone Number [address] [address] * Hepatitis C antibody, qualitative (01/04/2024 9:22 AM EST) Pathologist [facility] HCV NON-REACTIV E NON-REACTI VE [facility] Blood 01/04/2024 9:22 AM EST 01/04/2024 9:53 AM EST Missy WALLACE LAB BLOOD BKR ORDERABLES Final Result Performing Organization Address [facility] Co de Phone Number [address] [address] * Hepatitis B surface antibody (01/04/2024 9:22 AM EST) Pathologist [facility] HBV SURFACE ANTIBODY Negative [facility] Comment: Unvaccinated: Negative Vaccinated: Positive Blood 01/04/2024 9:22 AM EST 01/04/2024 9:53 AM EST Missy WALLACE LAB BLOOD BKR ORDERABLES Final Result Performing Organization Address City/[facility]/ZIP Co de Phone Number [address] [address] * Hepatitis B surface antigen (01/04/2024 9:22 AM EST) HBV SURFACE ANTIGEN NON-REACTI VE NON-REACTI VE [facility] Blood 01/04/2024 9:22 AM EST 01/04/2024 9:53 AM EST Missy WALLACE LAB BLOOD BKR ORDERABLES Final Result Performing Organization Address [facility] Co de Phone Number [address] [address] * Hepatitis B core antibody, total (01/04/2024 9:22 AM EST) HEP B CORE AB, TOT NON-REACTI VE NON-REACTI VE [facility] Blood 01/04/2024 9:22 AM EST 01/04/2024 9:53 AM EST Missy WALLACE LAB BLOOD BKR ORDERABLES Final Result Performing Organization Address [facility] Co de Phone Number [address] [address] * HEPATITIS A ANTIBODY, TOTAL (01/04/2024 9:22 AM EST) HAV TOTAL AB NON-REACTI VE NON-REACTI VE [facility] Blood 01/04/2024 9:22 AM EST 01/04/2024 9:53 AM EST Missy WALLACE LAB BLOOD BKR ORDERABLES Final Result Performing Organization Address City/[facility]/ZIP Co de Phone Number [address] [address] * (ABNORMAL) GGT (Gamma glutamyl transferase) (01/04/2024 9:22 AM EST) Pathologist [facility] GGT 54(H) 11 - 51 U/L [facility] Blood 01/04/2024 9:22 AM EST 01/04/2024 9:53 AM EST Missy WALLACE LAB BLOOD BKR ORDERABLES Final Result [address] [address] * C-Reactive Protein (01/04/2024 9:22 AM EST) [facility] C REACTIVE PROTEIN <3.0 0.0 - 4.0 mg/L [facility] Blood 01/04/2024 9:22 AM EST 01/04/2024 9:53 AM EST Missy WALLACE LAB BLOOD BKR ORDERABLES Final Result [address] [address] * (ABNORMAL) Comprehensive metabolic panel (01/04/2024 9:22 AM EST) Pathologist [facility] SODIUM 137 133 - 146 mmol/L [facility] POTASSIUM 4.5 3.3 - 5.1 mmol/L [facility] CHLORIDE 105 96 - 108 mmol/L [facility] CO2 22 21 - 35 mmol/L [facility] BUN 14 6 - 19 mg/dL [facility] CREATININE 0.80 0.5 - 1.5 mg/dL [facility] GLUCOSE 104(H) 70 - 99 mg/dL [facility] ALBUMIN 4.1 3.9 - 4.8 g/dL [facility] TOTAL PROTEIN 8.1(H) 6.5 - 8.0 g/dL [facility] CALCIUM 10.4(H) 8.4 - 10.3 mg/dL [facility] ALKALINE PHOSPHATASE 118(H) 39 - 117 U/L [facility] TOTAL BILIRUBIN 0.6 0.0 - 1.2 mg/dL [facility] AST 25 0 - 37 U/L [facility] ALT 7 0 - 40 U/L [facility] GLOBULIN 4.0 1 - 4.8 g/dL [facility] EGFR 105 >59 mL/min/1.7 3m2 [facility] Comment:Estimated glomerular filtration rate calculated using the CKD-EPI refit equation. ANION GAP 15 10 - 20 mmol/L [facility] Blood 01/04/2024 9:22 AM EST 01/04/2024 9:53 AM EST Missy WALLACE LAB BLOOD BKR ORDERABLES Final Result [address] [address] * (ABNORMAL) CBC and differential (01/04/2024 9:22 AM EST) WBC 3.17(L) 4.00 - 11.00 K/uL [facility] RBC 3.41(L) 4.23 - 5.82 M/uL [facility] HGB 10.7(L) 13.4 - 17.5 g/dL [facility] HCT 33.8(L) 37.0 - 51.0 % [facility] PLT 64(L) 140 - 430 K/uL [facility] Comment:Consistent with prev ious result. MCV 99.1(H) 78.0 - 97.0 fL [facility] MCH 31.4 25.0 - 33.0 pg [facility] MCHC 31.7(L) 32.0 - 36.0 g/dL [facility] RDW 13.0 11.0 - 15.0 % [facility] MPV 13.2(H) 8.4 - 12.8 fl [facility] DIFF METHOD Auto [facility] NEUTS 57.2 43.0 - 75.0 % [facility] LYMPHS 24.9 18.2 - 47.4 % [facility] MONOS 12.0(H) 4.00 - 11.00 % [facility] EOS 4.7 0.0 - 8.0 % [facility] BASOS 0.9 0.0 - 2.0 % [facility] Granulocytes, immature (%) 0.3 0.0 - 0.9 % [facility] ABSOLUTE NEUTS 1.81 1.80 - 7.70 K/uL [facility] ABSOLUTE LYMPHS 0.79(L) 1.00 - 3.10 K/uL [facility] ABSOLUTE MONOS 0.38 0.20 - 0.80 K/uL [facility] ABSOLUTE EOS 0.15 0.00 - 0.80 K/uL [facility] ABSOLUTE BASOS 0.03 0.00 - 0.09 K/uL [facility] Granulocytes, immature 0.01 0.00 - 0.05 K/uL [facility] Blood 01/04/2024 9:22 AM EST 01/04/2024 9:53 AM EST Missy Miranda DE LAB BLOOD BKR ORDERABLES Final Result [address] [address] * (ABNORMAL) Immunoglobulin A (01/04/2024 9:22 AM EST) IgA 436(H) 70 - 400 mg/dL [facility] Blood 01/04/2024 9:22 AM EST 01/04/2024 9:53 AM EST [facility] Final Result [address] [address] * Tissue transglutaminase IgA (01/04/2024 9:22 AM EST) TTG IGA ANTIBODY 1.9 <4.0 (Negative) U/mL [facility] Blood 01/04/2024 9:22 AM EST 01/04/2024 9:53 AM EST Missy WALLACE LAB BLOOD BKR ORDERABLES Final Result [facility] [address] [place] [address] * Smooth Muscle Antibody (01/04/2024 9:22 AM EST) SMOOTH MUSCLE AB POSITIVE AT 1:20 [facility] Comment: Performing Physician, Max Jimenez M.D., [id number] Normal: Negative at 1:20 Blood 01/04/2024 9:22 AM EST 01/04/2024 9:53 AM EST Missy WALLACE LAB BLOOD ORDERABLES Fin al Result Performing Organization Address [facility] Co de Phone Number [address] [address] * Ceruloplasmin (01/04/2024 9:22 AM EST) CERULOPLASMIN 31 20 - 60 mg/dL [facility] Blood 01/04/2024 9:22 AM EST 01/04/2024 9:53 AM EST Missy WALLACE LAB BLOOD ORDERABLES Fin al Result Performing Organization Address [facility] Co de Phone Number [address] [address] * (ABNORMAL) Antinuclear antibody (JERMAIN) (01/04/2024 9:22 AM EST) JERMAIN SCREEN ON HEP 2 Positive(A ) Negative [facility] Comment:An JERMAIN Titer has bee n reflexed. The results will follow. Blood 01/04/2024 9:22 AM EST 01/04/2024 9:53 AM EST Missy WALLACE LAB BLOOD BKR ORDERABLES Final Result [address] [address] * Anti-Mitochondrial Antibody (AMA) (01/04/2024 9:22 AM EST) MITOCHONDRIAL AB NEGATIVE AT 1:20 [facility] Comment: Performing Physician, Max Jimenez M.D., [id number] Normal: Negative at 1:20 Blood 01/04/2024 9:22 AM EST 01/04/2024 9:53 AM EST Missy WALLACE LAB BLOOD ORDERABLES Fin al Result Performing Organization Address [facility] Co de Phone Number [address] [address] * Amylase (01/04/2024 9:22 AM EST) Pathologist [facility] AMYLASE 86 28 - 100 U/L [facility] Blood 01/04/2024 9:22 AM EST 01/04/2024 9:53 AM EST Missy WALLACE LAB BLOOD BKR ORDERABLES Final Result Performing Organization Address [facility] Co de Phone Number [address] [address] * AFP (non-maternal specimens) (01/04/2024 9:22 AM EST) [facility] AFP (NON-MATERNAL) 4.7 <7.9 ng/mL [facility] Comment: Test Methodology Filpie [id number] Patient results determined by assays using different manufacturers or methods may not be comparable. Blood 01/04/2024 9:22 AM EST 01/04/2024 9:53 AM EST Missy WALLACE LAB BLOOD BKR ORDERABLES Final Result Performing Organization Address [facility] Co de Phone Number [address] [address] * Ymidv-7-equotejiknx phenotyping (01/04/2024 9:22 AM EST) ALPHA 1 ANTITRYPSIN 173 100 - 190 mg/dL [facility] [address] Comment: (NOTE) ADDITIONAL INFORMATION Method: Nephelometry A1A PHENOTYPE MM bands [facility] Comment: (NOTE) A single M isoform is detected. In the context of a normal kwffd-[id number] concentration, this is consistent with an MM phenotype. ADDITIONAL INFORMATION Method: Isoelectric Focusing, This assay identifies the phenotype of the circulating ldnwl-5-cmsuixeqrrl (A1A) protein. If the patient is on replacement therapy or has been recently transfused, the phenotype will detect patient and replacement or transfused plasma A1A protein. This test also cannot detect a null allele which could be responsible for an A1A deficiency. Blood 01/04/2024 9:22 AM EST 01/04/2024 9:53 AM EST Missy WALLACE LAB BLOOD ORDERABLES [facility] al Result [facility] [address] [place] [address] documented in this encounter Visit Diagnoses Diagnosis Need for hepatitis C screening test- Primary Special screening examination for other specified viral diseases Hepatic cirrhosis, unspecified hepatic cirrhosis type, unspecified whether ascites present Esophageal varices in alcoholic cirrhosis Esophageal varices without mention of bleeding documented in this encounter Care Teams Auto [employer] Handler Relationship Specialty Start Date End Date [facility] [address] [place] [address] PCP - General 10/07/23 Pcp, Unknown 10/07/23 documented as of this encounter Additional Source Comments The information contained in this document represents components of the legal health record. It is not the complete legal health record.[facility]
--- OUTSIDE RECORDS SUMMARY | 2025-09-27 01:44 | XMS_ITS | Encounter Summary ---
Author Organization [employer] Address [address] [place] [address] [place] [address] Care Team Providers Care Welt Beater Name Role Phone Charbel Calles RN Unavailable [phone] Conor Vidal Unavailable Encounter Details Date Type Department Care Team (Late st Contact Info) Description 09/16/2025 Results Follow-Up [facility] Information Management [address] [place] [address] Provider, Generic External Data XR Chest 1 [...] on filedocumented in this encounter Care Teams Welt Beater Relationship Specialty Start Date End Date Charbel Calles RN [address] [place] [address] Registered Nurse Family Medicine 09/11/25 Conor Vidal 09/11/25 documented as of this encounter
--- OUTSIDE RECORDS SUMMARY | 2025-09-27 01:44 | XMS_ITS ---
Author Organization [facility] Care Team Providers Care Weaver Wire Loom Name Role Phone Viridiana Nieto Unavailable Unavailable Lilo AIR BOATSWAIN, Mike Joseph Unavailable Unavailable Isabell Ruggiero Unavailable Unavailable Toña Camara Unavailable Allergies and adverse reactions No Known Allergies Care Team Name Role Address Phone Organization Dates Viridiana Nieto PCP [address] (Office): : [facility] 09/17/2025 - 09/26/2025 Mike Nagy NP [address] (Office): [facility] 09/17/2025 - 09/26/2025 [place], [address], Sourav brown [facility] (Office): [facility] 09/17/2025 - 09/26/2025 Toña Camara [facility] 09/17/2025 - 09/26/2025 Encounters Encounter Type Code Code System Description Performer Discharge Disposition Service Delivery Location Date Ambulatory Encounter CPT Code = [id number] Alcohol dependence [facility] Address: [address], [place], [address], [facility]. 09/17 Ambulatory Encounter CPT Code = [id number] Chronic respiratory failure [facility] Address: [address], [place], [address], [facility]. 09/17 Ambulatory Encounter CPT Code = [id number] Fall [facility] Address: [address], [place], [address], [place]. 09/17 Ambulatory Encounter CPT Code = [id number] Asthenia [facility] Address: [address], [place], [address], [facility]. 09/17 Ambulatory Encounter CPT Code = [id number] Homeless [facility] Address: [address], [place], [address], [facility]. 09/17 Ambulatory Encounter CPT Code = [address] Muscle weakness [facility] Address: [address], [place], [address], [place]. 09/17 Ambulatory Encounter CPT Code = [id number] Abnormal gait [facility] Address: [address], [place], [address], [facility]. 09/17 Ambulatory Encounter CPT Code = [id number] Unsteady when standing [facility] Address: [address], [place], [address], [place]. 09/17 Goals Section Goals Description Status Target Date Charbel will accept assistance and interventions in working towards recovery. Active 10/01/2025 Charbel will be free of falls through the review da te. Active 10/01/2025 Charbel will feel supported by staff and will display effective coping strategies. Active 10/01/2025 Charbel will have no complicati ons related to SOB though the review date. Active 10/01/2025 Charbel will have no s/sx of po or oxygen absorption through the review date. Active 10/01/2025 Charbel will improve current le ewelina of function in self-care ADLs through the review date. Charbel will be able to reach discharge goals set by therapy. Active 10/01/2025 Charbel will increase level of mobility by participating in therapy through the next review date. Active 10/01/2025 Charbel will maintain or develo p clean and intact skin by the review date. Active 10/01/2025 Charbel will not have an interr uption in normal activities due to pain through the review date. Active 10/01/2025 Charbel will not use alcohol. Active 10/01 Charbel will remain free of com plications related to immobility, including contractures, thrombus formation, skin-breakdown, fall related injury through the next review date. Active Charbel will verbalize adequate relief of pain through the review date. Active 10/01/2025 Charbel has a goal to return ho me with services in place by the next review date. Active 10/01/2025 Charbel will consume >75% of me als with gradual wt gain, 1-2#/week to goal weight of 130#. Active 10/01/2025 Charbel will have no s/sx of po or oxygen absorption through the review date. Active 10/01/2025 Charbel will maintain current l evel of function through the review date. Active 10/01/2025 Charbel will remain free from s kin breakdown due to incontinence and brief use through the review date. Active 10/01/2025 Charbel's Advanced Directives [facility] Active 10/01/2025 Functional Status Code Name Recorded Time Value Entered By Chair/vxb-ge-aarhq transfer 09/26/2025 Not assessed vlopez Does the resident use a whee lchair and/or scooter? 09/26/2025 Not assessed vlopez Eating 09/26/2025 Not assessed vlopez Indicate the type of wheelchair or scooter used 2024 Not assessed vlopez Lower body dressing 09/26/2025 Not assessed vlopez Lying to sitting on side of bed 09/26/2025 Not asses sed vlopez Oral hygiene 09/26/2025 Not assessed vlopez Personal hygiene 09/26/2025 Not assessed vlopez Putting on/taking off footwear 09/26/2025 Not assess ed vlopez Roll left and right 09/26/2025 Not assessed vlopez Shower/bathe self 09/26/2025 Not assessed vlopez Sit to lying 09/26/2025 Not assessed vlopez Sit to stand 09/26/2025 Not assessed vlopez Toilet transfer 09/26/2025 Not assessed vlopez Toileting hygiene 09/26/2025 Not assessed vlopez Transferring 09/26/2025 Not assessed vlopez Upper body dressing 09/26/2025 Not assessed vlopez Walk 10 feet 09/26/2025 Not assessed vlopez Walk 150 feet 09/26/2025 Not assessed vlopez Walk 50 feet 09/26/2025 Not assessed vlopez Wheel 150 feet 09/26/2025 Not assessed vlopez Wheel 50 feet with two turns 09/26/2025 Not assessed vlopez Immunizations Immunization Status Vaccine Details Vaccine Code CodeSystem Julio C e Notes Influenza, seasonal, injectable, preservative free completed Influenza, split virus, trivalent, injectable, preservative free 140 CVX created date: 06/24/2025 administered date: 01/05/2025 Medications Section Medication Name Status Code CodeSystem Dose Route Frequency Admin Type Sig Text Start Date End Date Indication Fleet Enema Enema 7-19 GM/118ML aborted 31953 5 RXNORM 1 dose Rectal as needed PRN Inser t 1 dose recta lly as neede d for Const ipati on (Step 3) as neede d if no bowel movem ent for 8 hours after bisac odyl suppo sitor y. 09/26 Constipatio n Milk of Magnesia Suspension 400 MG/5ML aborted 39563 7 RXNORM 30 ml Oral as needed PRN Give 30 ml by mouth as neede d for Const ipati on (Step 1) As neede d if no bowel movem ent for three days. (Do not use for Hemod ialys is patie nts). 09/26 Constipatio n Acetaminoph en Tablet 325 MG aborted 21829 2 RXNORM 2 table t Oral as needed PRN Give 2 table t by mouth every 6 hours as neede d for Pain Pain Total dosag e for aceta minop hen and medic ation s that conta in aceta minop hen shoul d not excee d 3 grams / 24 hours . AND Give 2 table t by mouth every 6 hours as neede d for Fever great er than 100.0 F Total dosag e for aceta minop hen and medic ation s that conta in aceta minop hen shoul d not excee d 3 grams / 24 hours . 09/26 Pain 03431 2 RXNORM 2 table t Oral as needed PRN Give 2 table t by mouth every 6 hours as neede d for Pain Pain Total dosag e for aceta minop hen and medic ation s that conta in aceta minop hen shoul d not excee d 3 grams / 24 hours . AND Give 2 table t by mouth every 6 hours as neede d for Fever great er than 100.0 F Total dosag e for aceta minop hen and medic ation s that conta in aceta minop hen shoul d not excee d 3 grams / 24 hours . 09/26 Fever greater than 100.0F Bisacodyl Suppository 10 MG aborted 9 RXNORM 1 suppo sitor y Rectal as needed PRN Inser t 1 suppo sitor y recta lly as neede d for If no bowel movem ent for 8 hours after Milk of Magne kyree 09/26 If no bowel movement for 8 hours after Milk of Magnesia Amoxicillin -Pot Clavulanate Oral Tablet 875-125 MG aborted 23714 8 RXNORM 1 table t Oral two times a day Routin e Give 1 table t by mouth two times a day for infec tion for 4 Days 09/17 infection Doxycycline Hyclate Oral Tablet 100 MG aborted 70279 43 RXNORM 100 mg Oral two times a day Routin e Give 100 mg by mouth two times a day for infec ion for 4 Days 09/17 infecion Probiotic Oral Capsule aborted 1 capsu le Oral in the morning Routin e Give 1 capsu le by mouth in the morni ng for Probi otic for 10 Days 09/26 Probiotic Nitrofurant oin Monohyd Macro Oral Capsule aborted 100 mg Oral two times a day Routin e Give 100 mg by mouth two times a day for infec tion for 5 Days 09/17 infection Amoxicillin -Pot Clavulanate Oral Tablet 875-125 MG aborted 72894 8 RXNORM 1 table t Oral two times a day Routin e Give 1 table t by mouth two times a day for Antib iotic for 7 Days 09/18 Antibiotic Nitrofurant oin Monohyd Macro Oral Capsule 100 MG aborted 11229 55 RXNORM 1 capsu le Oral two times a day Routin e Give 1 capsu le by mouth two times a day for Antib iotic for 7 Days 09/18 Antibiotic Amoxicillin -Pot Clavulanate Oral Tablet 875-125 MG aborted 65095 8 RXNORM 1 table t Oral two times a day Routin e Give 1 table t by mouth two times a day for Infec tion for 7 Days 09/17 Infection Doxycycline Hyclate Oral Tablet 100 MG aborted 73425 43 RXNORM 1 table t Oral two times a day Routin e Give 1 table t by mouth two times a day for Infec tion for 7 Days 09/18 Infection Doxycycline Hyclate Oral Tablet 100 [place] [address] 43 RXNORM 1 table t Oral two times a day Routin e Give 1 table t by mouth two times a day for Infec tion for 3 Days 09/22 Infection Nitrofurant oin Monohyd Macro Oral [place]apsule [place] [address] 55 RXNORM 1 capsu le Oral two times a day Routin e Give 1 capsu le by mouth two times a day for Antib iotic for 4 Days 09/22 Antibiotic Amoxicillin -Pot Clavulanate Oral Tablet 875-[place] [address] 8 RXNORM 1 table t Oral two times a day Routin e Give 1 table t by mouth two times a day for Antib iotic for 3 Days 09/22 Antibiotic Mental Status Section Date Assessment Total Score Description 09/23/2025 BIMS 13 cognitively int act CAM 0 No delirium ind icated PHQ-9 00 Insurance Providers Plan of Treatment Section Interventions Intervention Code Code System Display Name Proposed D ate Problems Problem # Description Date of onset Resolved Date Code CodeSystem Concern Status 1 ALCOHOL ABUSE WITH INTOXICATION, UNSPECIFIED 09/17/2025 09/17/[address] completed 2 ALCOHOL DEPENDENCE WITH INTOXICATION, UNSPECIFIED 09/17/[address] active 3 CHRONIC RESPIRATORY FAILURE, UNSPECIFIED WHETHER WITH HYPOXIA OR HYPERCAPNIA 09/17/[address] active 4 HISTORY OF FALLING 09/17/[address] active 5 HOMELESSNESS UNSPECIFIED 09/17/[address] active 6 MUSCLE WEAKNESS (GENERALIZED) 09/17/[address] active 7 OTHER ABNORMALITIES OF GAIT AND MOBILITY 09/17/[address] active 8 UNSTEADINESS ON FEET 09/17/[address] active 9 WEAKNESS 09/17/[address] active Reason for Referral No Reasons for Referral Entered Social History Social History Observation Description Start Date End Date Code Code System Current Smoking Status Tobacco smoking consumption unknown 888399047 SNOMED CT Sex Assigned At Male 1970 [address]-7 [facility] Gender Identity Sexual Orientation Vital Signs Code Code System Vitals Name Values and Units Timing Information 9279-1 LOINC Respiratory Rate Value=18.0 Units=/m in 09/26/2025 99449-5 LOINC O2 % BldC Oximetry Value=4.0 Units=% 09/26/2025 20877-3 LOINC Pain Level Value=0.0 09/26/2025 8462-4 LOINC Blood Pressure-Diastolic Value=52 Un its=mmHg 09/22/2025 8480-6 LOINC Blood Pressure-Systolic Rofbb=796 Un its=mmHg 09/22/2025 8310-5 LOINC Body Temperature Value=98.7 Units= F 09/22/2025 8867-4 LOINC Heart rate Value=62.0 Units=/min 08/2025 03535-1 LOINC Weight Ofdpt=922.2 Units=Lbs 03/2025 8302-2 LOINC Height Value=64.0 Units=Inches 09/17/2025
--- OUTSIDE RECORDS SUMMARY | 2025-09-27 01:44 | XMS_ITS | Encounter Summary ---
Author Organization [facility] Address [address] [facility] [address] [place] [address] Phone Care Team Providers Care Wind Power Project Manager Name Role Phone [facility], [facility] Primary Care Provider Pcp, Unknown Unavailable Unavailable Encounter Details Date Type Department Care Team (Late st Contact Info) Description 02/02/2024 Procedure Pass [facility] Endoscopy Admitting Dept Virtual Department [address] [place] [address] Social History Tobacco Use Types Packs/Day Years [...] on filedocumented in this encounter Care Teams Wind Power Project Manager Relationship Specialty Start Date End Date [facility] [address] [place] [address] PCP - General 10/07/23 Pcp, Unknown 10/07/23 documented as of this encounter Additional Source Comments The information contained in this document represents components of the legal health record. It is not the complete legal health record.[facility]
--- OUTSIDE RECORDS SUMMARY | 2025-09-27 01:44 | XMS_ITS ---
Author Organization [employer] Address [address] [place] [address] 7 [place] [address] Care Team Providers Care Architectural Drafter Name Role Phone Charbel Calles RN Unavailable [phone] Conor Vidal Unavailable CM Complex Status:Outreach In Progress (Enrolling) Start date:09/11/2025 Enrollment reason:ADT Feed Overview ED- Pt went to [facility] on 09/10/25. Case Team Name Relationship Phone Charbel Calles RN(Responsible Staff) Registered [facility] [phone] Continued Care and Services Coordination
--- OUTSIDE RECORDS SUMMARY | 2025-09-27 01:44 | XMS_ITS | Clinical Summary ---
Author Organization [facility] Address [address] [place] [address] Phone Care Team Providers Care Senior Marketing Data Analyst Name Role Phone [facility], Facility Primary Care Provider Pcp, Unknown [...] magnesia). Active monobasic and dibasic sodium phosphates (08442 ENEMA) 19-7 gram/[address] [...] Patient presented with altered mental status from [facility] where he appeared more lethargic [...] of 2) 2019 POTASSIUM LEVEL 01/04/2025 01/04/2024, 010 02/2024, 11/15/2023, Additional history exists INFLUENZA VACCINE (#1) 2025 COVID-19 VACCINE ( season) 2025 HEPATITIS C SCREENING Completed 01/04/2024 , 01/04/2024, 01/04/2024 HIB VACCINES Aged Out No longer eligi ble based on patient's age to complete this topic IPV VACCINES Aged Out No longer eligi ble [...] hepatitis C screening test COMPREHENSIVE METABOLIC PANEL (CMP) Routine 01/04/2024 9:22 AM EST Need for hepatitis C screening test Hepatic cirrhosis, unspecified hepatic cirrhosis type, unspecified whether ascites present Esophageal varices in alcoholic cirrhosis from Last 3 Months or Most Recently Relevant to Health Maintenance Results * (ABNORMAL) Comprehensive metabolic panel (01/04/2024 9:22 AM EST) SODIUM 137 133 - 146 mmol/L [facility] POTASSIUM 4.5 3.3 - 5.1 mmol/L [facility] CHLORIDE 105 96 - 108 mmol/L [facility] CO2 22 21 - 35 mmol/L [facility] BUN 14 6 - 19 mg/dL [facility] CREATININE 0.80 0.5 - 1.5 mg/dL [facility] GLUCOSE 104(H) 70 - 99 mg/dL [facility] ALBUMIN 4.1 3.9 - 4.8 g/dL [facility] TOTAL PROTEIN 8.1(H) 6.5 - 8.0 g/dL [facility] CALCIUM 10.4(H) 8.4 - 10.3 mg/dL [facility] ALKALINE PHOSPHATASE 118(H) 39 - 117 U/L [facility] TOTAL BILIRUBIN 0.6 0.0 - 1.2 mg/dL [facility] AST 25 0 - 37 U/L [facility] ALT 7 0 - 40 U/L [facility] GLOBULIN 4.0 1 - 4.8 g/dL [facility] EGFR 105 >59 mL/min/1.7 3m2 [facility] Comment:Estimated glomerular filtration rate calculated using the CKD-EPI refit equation. ANION GAP 15 10 - 20 mmol/L [facility] Blood 01/04/2024 9:22 AM EST 01/04/2024 9:53 AM EST Missy WALLACE LAB BLOOD BKR ORDERABLES Final Result Performing Organization Address City/[facility]/ZIP Co de Phone Number [address] [address] * Hepatitis C antibody, qualitative (01/04/2024 9:22 AM EST) HCV NON-REACTIV E NON-REACTI VE [facility] Blood 01/04/2024 9:22 AM EST 01/04/2024 9:53 AM EST Missy WALLACE LAB BLOOD BKR ORDERABLES Final Result Performing Organization Address [facility]/ZIP Co de Phone Number [address] [address] from Last 3 Months or Most Recently Relevant to Health Maintenance [place] [address] [place] [address] [employer] [facility] [address] [place] [address] [place] [address] [place] [address] [place] [address] [employer]3 [facility] C3 ACO Advance Directives For more information, please contact: [phone] (9AM - 5PM [facility], Monday-Monday) Documents on File Type Date Recorded Patient Counselor At Law Expl anation Healthcare Proxy 10/09/2023 10:49 AM [...] Agents on File Name Relationship Healthcare Agent [facility] Communication Guillermo Lobato .Primary Health Care Agent (Proxy form on file) Care Teams Senior Marketing Data Analyst Relationship Specialty Start Date End Date [facility] [address] [place] [address] PCP - General 10/07/23 Pcp, Unknown 10/07/23 Additional Source Comments The information contained in this document represents components of the legal health record. It is not the complete legal health record.[facility]
--- OUTSIDE RECORDS SUMMARY | 2025-09-27 01:44 | XMS_ITS ---
Author Organization [employer] Address [address] [place] [address] 7 [place] [address] Care Team Providers Care Appliance Tester Name Role Phone Charbel Calles RN Unavailable [phone] Conor Vidal Unavailable CHW Complex Status:Outreach In Progress (Enrolling) Start date:09/11/2025 Enrollment reason:ADT Feed Overview ED- Pt went to [facility] on 09/10/25. Case Team Name Relationship Phone Conor Vidal(Responsible Staff) [phone] Continued Care and Services Coordination
--- OUTSIDE RECORDS SUMMARY | 2025-09-27 01:44 | XMS_ITS | Encounter Summary ---
Author Organization [employer] Address [address] [place] [address] [place] [address] Care Team Providers Care Account Representative Name Role Phone Charbel aClles RN Unavailable [phone] Conor Vidal Unavailable Encounter Details Date Type Department Care Team ([facility] st Contact Info) Description 09/03/2025 Results Follow-Up [facility] Information Management [address] [place] [address] Provider, Generic External Data XR Chest 2 [...] filedocumented in this encounter Care Teams Account Representative Relationship Specialty Start Date End Date Charbel Calles RN [address] [place] [address] Registered Nurse Family Medicine 09/11/25 Conor Vidal 09/11/25 documented as of this encounter
--- OUTSIDE RECORDS SUMMARY | 2025-09-27 01:44 | XMS_ITS | Encounter Summary ---
Author Organization [facility] [employer] Address [address] [place] [address] 7 [place] [address] Care Team Providers Care Canvas Baster Jumpbasting Name Role Phone Charbel Calles RN Unavailable [phone] Conor Vidal Unavailable Encounter Details Date Type Department Care Team ([facility] st Contact Info) Description 09/16/2025 Results Follow-Up [facility] Information Management [address] [place] [address] External Provider, [facility] XR Chest 1 View Social History Tobacco [...] on filedocumented in this encounter Care Teams Canvas Baster Jumpbasting Relationship Specialty Start Date End Date Charbel Calles RN [address] [place] [address] Registered Nurse Family Medicine 09/11/25 Conor Vidal 09/11/25 documented as of this encounter
--- OUTSIDE RECORDS SUMMARY | 2025-09-27 01:44 | XMS_ITS | Clinical Summary ---
Author Organization [employer] Address [address] [place] [address] [address] [place] [address] Care Team Providers Care Sap Functional Analyst Name Role Phone Charbel Calles RN Unavailable [phone] Conor Vidal Unavailable Allergies No known [...] Patient presented with altered mental status from [facility] where he appeared more lethargic than [...] Encounters Date Type Department Care Team Description 09/16/2025 Results Follow-Up [facility] Information Management [address] [place] [address] External Provider, [facility] XR Chest 1 View 09/16/2025 Results Follow-Up [facility] Information [facility] [address] [place] [address] Provider, Generic External Data XR Chest 1 View 09/14/2025 Orders Only GENERIC EXTERNAL DATA DEPARTMENT Provider, Generic External Data 09/13/2025 Orders Only [facility] External Provider, [facility] 09/12/2025 Orders Only GENERIC EXTERNAL DATA DEPARTMENT Provider, Generic External Data 09/11/2025 Patient Outreach [facility] [address] [place] [address] Edith Zuniga, RN 09/11/2025 Patient Outreach [address] [address] Conor Vidal Care Coordination (C3/W Conor Vidal, Initial outreach call_lvm ) 09/11/2025 Patient Outreach [facility] [address] [place] [phone] Conor Vidal Care Coordination (C3CM/CHW Conor Vidal, Chart review ) 09/11/2025 Patient Outreach [facility] [address] [place] [address] Charbel Calles, RN Care Coordination (C3CM- chart review) 09/11/2025 Patient Outreach [address] [address] Jodi Cerda, RN 09/08/2025 Results Follow-Up [facility] [address] [place] [address] External Provider, [facility] CTA Chest PE Protocal, XR Chest 1 View 09/06/2025 Orders Only [facility] External Provider, [facility] 09/03/2025 Results Follow-Up [facility] Information Management [address] [place] [address] Provider, Generic External Data XR Chest 2 Views 09/03/2025 Orders Only GENERIC EXTERNAL DATA DEPARTMENT Provider, Generic External Data 08/21/2025 Orders Only GENERIC EXTERNAL DATA DEPARTMENT Provider, Generic External Data 08/14/2025 Orders Only [facility] External Provider, [facility] 08/04/2025 Patient Outreach [address] [address] Conor Vidal Care Coordination ([facility]W Conor Vidal, TC #6 outreach_closed ) 07/21/2025 Patient Outreach [address] [address] Conor Vidal 07/08/2025 Patient Outreach [facility] [address], [place] [phone] Missy Milner, LAURA 07/07/[address] [address] Mihaela Zhong, RN Needs GARAGE WORKER Appt 07/06/2025 Orders Only GENERIC EXTERNAL DATA DEPARTMENT Provider, Generic External Data 07/02/2025 Orders Only [facility] External Provider, [facility] 07/01/2025 Patient Outreach [address] [address] Missy Milner, RN Care Coordination (C3CM/W Conor Vidal, TC #5 initial outreach attempt_lvm) from Last 3 Months Immunizations Immunization Administration Dates Next Due [facility] SARS-CoV-2 Vaccination 04/28/2021 Pfizer Covid-19 Vaccine 12+ [...] Years (1 of 2 - PCV) 01/27/1988 RSV Patients and Patients Aged 60 years or older (1 - Risk 50-74 years 1-dose series) 2019 Zoster Vaccines (1 of 2) 2019 COVID-19 Vaccine (4 - 2024-2 6 season) 2025 11/23/2022, 04/28/2021, 04/28/2021 Influenza Vaccine (#1) 2025 01/05/2025 Lipid Panel 08/21/2030 08/21/2025 DTaP/Tdap/Td Vaccines (2 - T d or Tdap) 09/16/2031 09/16/2021, 05/18/2017 HIB Vaccines Aged Out No longer eligi [...] Procedure Name Priority Date/Time Associated Diagnosis Comments URINALYSIS, COMPLETE, WITH REFLEX TO CULTURE Routine 09/14/2025 2:12 AM EST DRUG MONITOR, PANEL 1, SCREEN, URINE Routine 09/14/2025 2:12 AM EST LACTIC ACID LAB USE ONLY Routine 09/14/2025 1:01 AM EDT CBC WITH AUTO DIFFERENTIAL Routine 09/13/2025 10:41 PM EDT HIGH SENSITIVITY TROPONIN I Routine 09/13/2025 10:41 PM EDT NT-PROBNP Routine 09/13/2025 10:41 PM EDT LACTIC ACID Routine 09/13/2025 10:41 PM EDT MAGNESIUM Routine 09/13/2025 10:41 PM EDT BASIC METABOLIC PANEL Routine 09/13/2025 10:41 PM EDT HEPATIC FUNCTION PANEL Routine 10:41 PM EDT ETHANOL Routine 09/13/2025 10:41 PM EDT BLOOD CULTURE (SECOND) Routine 10:41 PM EDT BLOOD CULTURE (FIRST) Routine 09/13/2025 10:41 PM EDT SARS COV2/INFLUENZA A/B AND RSV RNA QL NAAT Routine 09/13/2025 10:41 PM EDT XR CHEST 1 VIEW Routine 09/13/2025 9:53 PM EDT XR CHEST 1 VIEW Routine 09/12/2025 10:44 [...] 1 VIEW Routine 07/02/2025 9:37 PM EDT from Last 3 Months Results * (ABNORMAL) Urinalysis, Complete, with Reflex to Culture (09/14/2025 2:12 AM EST) Only the most recent of3 resultswithin the time period is included. Color Urine Yellow [facility] Appearance Urine Clear [facility] PH 5.5 5.0 - 9.0 [facility] Glucose Urine UA Negative Negative mg/dL [facility] Urine Blood Negative Negative [facility] Specific [place] - Urine 1.010 1.005 - 1.025 [facility] Urine Protein Negative Neg-Trace mg/dL [facility] Urine Ketones Negative Negative mg/dL [facility] Nitrite Urine Negative Negative [facility] Leukocyte Esterase Urine Trace(A) Negative [facility] RBC Urine 0-2 0 - 2 /HPF [facility] Urine WBC 0-5 0 - 5 /HPF [facility] Urine Squamous Epithelial Cell 0-2 0 - 2 /HPF [facility] Urine Bacteria None Seen None Seen [facility] Hyaline Casts, Urine 0-2 0 - 2 /LPF [facility] 09/14/2025 2:12 AM EST 09/14/2025 2:16 AM EST Narrative [facility] - 09/14/2025 2:30 AM EST Urine, Clean Catch us Generic External Data Provider LAB URINE ORDERAB LES Final Result [facility] [address], [place] [phone] * (ABNORMAL) Drug Monitoring, Panel 1, Screen, Urine (09/14/2025 2:12 AM EST) Only the most recent of3 resultswithin the time period is included. Opiate Screen Urine Not Detected Not Detect [facility] Comment:Opiate cut-off is 30 0 ng/mL.Positive results are unconfirmed and should not be used fornon-medical purposes. Barbiturates, Urine POSITIVE(A) Not Detect [facility] Comment:Barbiturate cut-off is 200 ng/mL.Positive results are unconfirmed and should not be used fornon-medical purposes. Phencyclidine Screen Urine Not Detected Not Detect [facility] Comment:Phencyclidine cut-of f is 25 ng/mL.Positive results are unconfirmed and should not be used fornon-medical purposes. Amphetamine Screen Urine Not Detected Not Detect [facility] Comment:Amphetamine cut-off is 1000 ng/mL.Positive results are unconfirmed and should not be used fornon-medical purposes. Benzodiazepines Screen Urine Not Detected Not Detect [facility] Comment:Benzodiazepine cut-o ff is 200 ng/mL.Positive results are unconfirmed and should not be used fornon-medical purposes. Cocaine Screen Urine Not Detected Not Detect [facility] Comment:Cocaine cut-off is 3 00 ng/mL.Positive results are unconfirmed and should not be used fornon-medical purposes. Cannabinoid Screen Urine Not Detected Not Detect [facility] Comment:Cannabinoid cut-off is 50 ng/mL.Positive results are unconfirmed and should not be used fornon-medical purposes. Methadone Screen, Urine Not Detected Not Detect ng/mL [facility] Comment:Methadone cut-off is 300 ng/mL.Positive results are unconfirmed and should not be used fornon-medical purposes. FENTANYL URINE Not Detected Not Detect [facility] Comment:Fentanyl cut-off is 1 ng/mL.Positive results are unconfirmed and should not be used fornon-medical purposes. Oxycodone Urine Screen Not Detected Not Detect ng/mL [facility] Comment:Oxycodone cut-off is 100 ng/mL.Positive results are unconfirmed and should not be used fornon-medical purposes. Buprenorphine Screen Not Detected Not Detect ng/mL [facility] Comment:Buprenorphine cut-of f is 5 ng/mL.Positive results are unconfirmed and should not be used fornon-medical purposes. 09/14/2025 2:12 AM EST 09/14/2025 2:16 AM EST Generic External Data Provider LAB URINE ORDERAB LES Final Result Performing Organization Address [facility] Co de Phone Number [facility] [address] [place] [phone] * Lactic Acid (09/14/2025 1:01 AM EDT) Only the most recent of4 resultswithin the time period is included. Lactic Acid 2.0 0.5 - 2.0 mmol/L [facility] 09/14/2025 1:01 AM EDT 09/14/2025 1:04 AM EDT Generic External Data Provider LAB BLOOD ORDERAB LES Final Result Performing Organization Address [facility] de Phone Number [facility] [address] [place] [phone] * Blood Culture (First) (09/13/2025 10:41 PM EDT) Only the most recent of2 resultswithin the time period is included. Blood Venous blood specimen / Unknown 09/13/2025 10:41 PM EDT 09/13/2025 10:51 PM EDT Comment:Blood [facility] - 09/19/2025 12:51 AM EST Blood Culture (First) No growth after 5 days. Specimen Source: Blood Generic External Data Provider LAB MICROBIOLOGY - GENERAL ORDERABLES Final Result Performing Organization Address [facility] Co de Phone Number [facility] [address] [place] [phone] * Blood Culture (Second) (09/13/2025 10:41 PM EDT) Only the most recent of2 resultswithin the time period is included. Blood Venous blood specimen / Unknown 09/13/2025 10:41 PM EDT 09/13/2025 10:54 PM EDT Comment:Blood [facility] - 09/19/2025 12:54 AM EST Blood Culture (Second) No growth after 5 days. Specimen Source: Blood Generic External Data Provider LAB MICROBIOLOGY - GENERAL ORDERABLES Final Result Performing Organization Address [facility] Co de Phone Number [facility] [address] [place] [phone] * High Sensitivity Troponin I (09/13/2025 10:41 PM EDT) Only the most recent of5 resultswithin the time period is included. TROPONIN I HIGH SENSITIVITY <2.7 <3.5 - 35.0 ng/L [facility] Comment:The Yarbrough high sens itivity Troponin-I results should beused in conjunction with other diagnostic information suchas ECG, clinical observations and information, and patientsymptoms to aid in the diagnosis of NM. 09/13/2025 10:4 1 PM EDT 09/13/2025 10:51 PM EDT Generic External Data Provider LAB BLOOD ORDERAB LES Final Result Performing Organization Address [facility] de Phone Number [facility] [address] [place] [phone] * Ethanol (09/13/2025 10:41 PM EDT) Only the most recent of6 resultswithin the time period is included. ETHANOL (MG/DL) IN SER/PLAS 269 mg/dL [facility] Comment:Serum/plasma ethanol results are to be used formedical/treatment purposes only. 09/13/2025 10:4 1 PM EDT 09/13/2025 10:51 PM EDT Generic External Data Provider LAB BLOOD ORDERAB LES Final Result Performing Organization Address [facility] Co de Phone Number [facility] [address] [place] [phone] * SARS-CoV-2 RNA, Influenza A/B, and RSV RNA, Ql NAAT (09/13/2025 10:41 PM EDT) Influenza A PCR NEGATIVE Negative [facility] Influenza B PCR NEGATIVE Negative [facility] Resp Syncy Virus RNA Qual PCR NEGATIVE Negative [facility] SARS COV2 PCR NEGATIVE Negative [facility] Comment:All test results mus t [...] use by authorized laboratories.Testing performed on the [employer] GeneXpert utilizingreal-time RT-PCR.All SARS CoV2 and positive influenza A/B results arereported to [facility]. 09/13/2025 10:4 1 PM EDT 09/13/2025 10:51 PM EDT us Generic External Data Provider LAB MICROBIOLOGY - GENERAL ORDERABLES Final Result [facility] [address] [place] [phone] * NT-proBNP (09/13/2025 10:41 PM EDT) Only the most recent of5 resultswithin the time period is included. NT-proBNP 174.0 <300 pg/mL [facility] Comment:Reference Range:Age Group (years) NT-proBNP (pg/ml) InterpretationAll <300 Negative: HF unlikelyFor patients presenting to the ED with clinical suspicion ofnew onset or worsening HF, see below:18 to <50 >299.9 to <450.0 Grayzone: [id number] to 75 >299.9 to <900.0 other causes of>75 >299.9 to <1800.0 NT-proBNP xtobnabny16 to <50 >449.9 Positive: HF [id number] >899.9>75 >1799.9Note: Elevated NT-proBNP levels should be interpreted inthe context of other clinical information. 09/13/2025 10:4 1 PM EDT 09/13/2025 10:51 PM EDT us Generic External Data Provider LAB BLOOD ORDERAB LES Final Result [facility] [address] [place] [phone] * (ABNORMAL) CBC auto differential (09/13/2025 10:41 PM EDT) Only the most recent of7 resultswithin the time period is included. White Blood Count 3.6(L) 4.8 - 10.8 X10*3/uL [facility] Red Blood Count 2.82(L) 4.60 - 5.80 X10*6/uL [facility] Hemoglobin 8.5(L) 14.0 - 18.0 g/dl [facility] Hematocrit 27.0(L) 42.0 - 52.0 % [facility] Mean Corpuscular Volume 95.7 80.0 - 98.0 fL [facility] Mean Corpuscular Hemoglobin 30.1 27.0 - 33.0 pg [facility] Mean Corpuscular HGB Conc 31.5 31.0 - 36.0 g/dl [facility] Red Cell Distribution Width 17.3(H) 11.0 - 16.0 % [facility] Platelet Count 56(L) 160 - 400 X10*3/uL [facility] Mean Platelet Volume 11.1 9.4 - 12.4 fL [facility] Neutrophils Percent Auto 56.8 45 - 73 % [facility] Imm Gran Pct Auto 0.3 0.0 - 0.4 % [facility] Lymphocytes Percent Auto 24.9 20 - 40 % [facility] Monocytes Percent Auto 10.0 2 - 11 % [facility] Eosinophils Percent Auto 6.9(H) 0 - 4 % [facility] Basophils Percent Auto 1.1 0 - 2 % [facility] NRBC Pct Auto 0.0 0.0 - 0.2 /100WBC [facility] Neutrophils Absolute Auto 2.1 2.0 - 8.3 x10*3/uL [facility] Imm Gran Abs Auto 0.01 0.00 - 0.03 X10*3/uL [facility] Lymphocytes Absolute Auto 0.9(L) 1.2 - 4.9 X10*3/uL [facility] Monocytes Absolute Auto 0.4 0.1 - 1.2 X10*3/uL [facility] Eosinophils Absolute Auto 0.3 0.0 - 0.4 X10*3/uL [facility] Basophils Absolute Auto 0.0 0.0 - 0.2 X10*3/uL [facility] NRBC Abs Auto 0.000 0.0 - 0.012 X10*3/uL [facility] 09/13/2025 10:4 1 PM EDT 09/13/2025 10:51 PM EDT us Generic External Data Provider LAB BLOOD ORDERAB LES Final Result Performing Organization Address City/[facility]/ZIP Co de Phone Number [facility] [address] [place] [phone] * Magnesium (09/13/2025 10:41 PM EDT) Only the most recent of3 resultswithin the time period is included. Magnesium 1.7 1.6 - 2.6 mg/dL [facility] 09/13/2025 10:4 1 PM EDT 09/13/2025 10:51 PM EDT us Generic External Data Provider LAB BLOOD ORDERAB LES Final Result Performing Organization Address [facility]/ZIP Co de Phone Number [facility] [address] [place] [phone] * (ABNORMAL) Lactic Acid (09/13/2025 10:41 PM EDT) Only the most recent of3 resultswithin the time period is included. Lactic Acid 2.1(HH) 0.5 - 2.0 mmol/L [facility] Comment:Critical value for t est(s): LACTA Results called to solyue back by:NATAN Person calling: DEVENDRA Date: 09/13/25Time: 231 09/13/2025 10:4 1 PM EDT 09/13/2025 10:51 PM EDT Generic External Data Provider LAB BLOOD ORDERAB LES Final Result Performing Organization Address [facility]/ZIP Co de Phone Number [facility] [address] [place] [address] [phone] * (ABNORMAL) Hepatic Function Panel (09/13/2025 10:41 PM EDT) Bilirubin, Total 0.3 0.0 - 1.0 mg/dL [facility] Bilirubin, Direct 0.2 0.0 - 0.5 mg/dL [facility] Aspartate Amino Transferase 41(H) 5 - 37 U/L [facility] Alanine Aminotransferase 10 0 - 40 U/L [facility] Total Protein 7.0 6.5 - 8.0 g/dL [facility] Albumin Level 3.0(L) 3.5 - 5.0 g/dL [facility] Alkaline Phosphatase 122(H) 39 - 117 U/L [facility] 09/13/2025 10:4 1 PM EDT 09/13/2025 10:51 PM EDT Generic External Data Provider LAB BLOOD ORDERAB LES Final Result Performing Organization Address [facility] Co de Phone Number [facility] [address] [place] [address] [phone] * (ABNORMAL) Basic Metabolic Panel (09/13/2025 10:41 PM EDT) Sodium 142 135 - 145 mmol/L [facility] Potassium 3.6 3.3 - 5.1 mmol/L [facility] Chloride 115(H) 96 - 108 mmol/L [facility] Carbon Dioxide 19(L) 22 - 29 mmol/L [facility] Anion Gap 12 12 - 20 [facility] Urea Nitrogen (BUN) 12 9 - 16 mg/dL [facility] Creatinine, Serum 0.75 0.5 - 1.4 mg/dL [facility] Creatinine Clr Calc Pharmacy 98.7 [facility] Comment:eGFR (calculated fro m the MDRD study equation) and eCrCl(calculated from the Cockcroft-Gault equation) are based ondifferent parameters and may not yield comparable results.If eCrCl result is absurd, please check patient'sheight/weight. Estimated Glomerular Filt Rate >60 [facility] Comment:Chronic Kidney Disea se: Estimated GFR < 60 mL/min/1.95i6Isgasv Kidney Disease: Estimated GFR < 15 mL/min/1.73m2 Glucose 97 60 - 115 mg/dL [facility] Calcium 8.0(L) 8.4 - 10.2 mg/dL [facility] 09/13/2025 10:4 1 PM EDT 09/13/2025 10:51 PM EDT us Generic External Data Provider LAB BLOOD ORDERAB LES Final Result Performing Organization Address City/State/[facility] Co de Phone Number [facility] [address] [place] [phone] * XR Chest 1 View (09/13/2025 9:53 PM EDT) Only the most recent of7 resultswithin the time period is included. Anatomical Region Laterality Modality Chest Radiographic Lamar ging 09/13/2025 9:53 PM EDT Narrative 09/13/2025 9:54 PM EDT [address] [address] XRay Report Signed Patient: Charbel Delgado MR#: [id number] : 1970 Acct:[id number] Age/Sex: 55 / M ADM Date: 09/13/25 Loc: HO.ED Attending Dr: Ordering Physician: Alley Del Rosario DO Date of Service: 09/13/25 Procedure(s): XR chest 1V Accession Number(s): [id number] cc: Alley Del Rosario DO; [facility] Reason for Exam: dyspnea CLINICAL HISTORY: dyspnea 1 view chest x-ray Comparison: Chest x-ray from 09/12/2025 Findings: Mild pulmonary opacities nonspecific and may reflect pulmonary edema and/or pneumonitis particularly in the lung bases. Mild cardiomegaly accentuated by AP technique. No pneumothorax or pleural effusion in this one view study. Imaged rib deformities appear old/chronic. Low bone mineralization suggested. IMPRESSION: Pulmonary opacities persists and may reflect pulmonary edema or pneumonitis. Recommend attention on follow-up to ensure resolution. This document has been electronically signed by: Phillip Anthony MD on 09/13/2025 21:53:26 Dictated By: Phillip Anthony MD Signed By: <Electronically signed by Phillip Anthony MD in OV> 09/13/252153 DD/ 52 TD/TT: 09/13/252152 Display And Banner Designer: Procedure Note Donotuseinterpreter, Image - 09/13/2025 [place] [id number] XRay Report Signed Patient: Isaias Delgado#: [id number] : 1970Acct:[id number] Age/Sex: 55 / MADM Date: 09/13/25 Loc: .ED Attending Dr: Ordering Physician: Alley Del Rosario DO Date of Service: 09/13/25 Procedure(s): XR chest 1V Accession Number(s): [id number] cc: Alley Del Rosario DO; [facility] Reason for Exam: dyspnea CLINICAL HISTORY: dyspnea 1 view chest x-ray Comparison: Chest x-ray from 09/12/2025 Findings: Mild pulmonary opacities nonspecific and may reflect pulmonary edema and/or pneumonitis particularly in the lung bases. Mild cardiomegaly accentuated by AP technique. No pneumothorax or pleural effusion in this one view study. Imaged rib deformities appear old/chronic. Low bone mineralization suggested. IMPRESSION: Pulmonary opacities persists and may reflect pulmonary edema or pneumonitis. Recommend attention on follow-up to ensure resolution. This document has been electronically signed by: Phillip Anthony MD on 09/13/2025 21:53:26 Dictated By: Phillip Anthony MD Signed By: <Electronically signed by Phillip Anthony MD in OV> 09/13/252153 DD/ 52 TD/TT: 09/13/252152 Display And Banner Designer: [facility] External Provider IMG XR PROCEDURES Edited Result - Final * Culture, Urine, Routine (09/12/2025 10:15 PM EDT) Urine Urine specimen obtained by clean catch procedure / Unknown 09/12/2025 10:15 PM EDT 09/12/2025 10:15 PM EDT Comment:CC Narrative [facility] - 09/15/2025 7:48 AM EST Enterococcus faecalis Quant 10,000 to 50,000 cfu/mL Enterococcus faecalis: Ampicillin <=2(S) Enterococcus faecalis: Levofloxacin >=8(R) Enterococcus faecalis: Nitrofurantoin 32(S) Enterococcus faecalis: Tetracycline >=16(R) Enterococcus faecalis: Vancomycin 2(S) Specimen Source: Urine clean catch Generic External Data Provider LAB MICROBIOLOGY - GENERAL ORDERABLES Final Result [facility] [address] [place] [phone] * (ABNORMAL) Comprehensive Metabolic Panel (09/12/2025 9:19 PM EDT) Only the most recent of6 resultswithin the time period is included. Sodium 140 135 - 145 mmol/L [facility] Potassium 3.8 3.3 - 5.1 mmol/L [facility] Chloride 111(H) 96 - 108 mmol/L [facility] Carbon Dioxide 18(L) 22 - 29 mmol/L [facility] Anion Gap 15 12 - 20 [facility] Urea Nitrogen (BUN) 18(H) 9 - 16 mg/dL [facility] Creatinine, Serum 0.99 0.5 - 1.4 mg/dL [facility] Creatinine Clr Calc Pharmacy 74.4 [facility] Comment:eGFR (calculated fro m the MDRD study equation) and eCrCl(calculated from the Cockcroft-Gault equation) are based ondifferent parameters and may not yield comparable results.If eCrCl result is absurd, please check patient'sheight/weight. Estimated Glomerular Filt Rate >60 [facility] Comment:Chronic Kidney Disea se: Estimated GFR < 60 mL/min/1.01a5Dmqaia Kidney Disease: Estimated GFR < 15 mL/min/1.73m2 Glucose 89 60 - 115 mg/dL [facility] Calcium 8.2(L) 8.4 - 10.2 mg/dL [facility] Bilirubin, Total 0.3 0.0 - 1.0 mg/dL [facility] Aspartate Amino Transferase 45(H) 5 - 37 U/L [facility] Alanine Aminotransferase 11 0 - 40 U/L [facility] Total Protein 8.0 6.5 - 8.0 g/dL [facility] Albumin Level 3.5 3.5 - 5.0 g/dL [facility] Alkaline Phosphatase 134(H) 39 - 117 U/L [facility] 09/12/2025 9:19 PM EDT 09/12/2025 9:23 PM EDT us Generic External Data Provider LAB BLOOD ORDERAB LES Final Result [facility] [address] [place] [phone] * CTA Chest PE Protocal (09/06/2025 12:04 PM EDT) Anatomical Region Laterality Modality Body, Chest Computed Tomogra phy 09/06/2025 12:0 4 PM EDT Narrative 09/06/2025 12:06 PM EDT [address] [address] [address] Scan Report Signed Patient: Charbel Delgado MR#: [id number] : 1970 Acct:[id number] Age/Sex: 55 / M ADM Date: 09/06/25 Loc: HO.ED Attending Dr: Ordering Physician: Abril Sam Date of Service: 09/06/25 Procedure(s): CT angio chest PE protocol Accession Number(s): [id number] cc: Abril Sam; [facility] Report Number: [id number]: Total DLP = 188.00 mGy-cm Reason for [...] MD on 09/06/2025 12:04:37 Dictated By: Christian eBard MD Signed By: <Electronically signed by Christian Beard MD in OV> 09/06/25 1205 DD/ 1204 TD/TT: 09/06/25 1204 Display And Banner Designer: Procedure Note Donotfernandointerpreter, Image - 09/06/[address] [address] [address] Scan Report Signed Patient: Rod DelgadoR#: [id number] : 1970Acct:[id number] Age/Sex: 55 / MADM Date: 09/06/25 Loc: HO.ED Attending Dr: Ordering Physician: Abril Sam Date of Service: 09/06/25 Procedure(s): CT angio chest PE protocol Accession Number(s): [id number] cc: Abril Sam; [facility] Report Number: [id number]: Total DLP = 188.00 mGy-cm Reason for [...] 09/06/25 1205 DD/ 1204 TD/TT: 09/06/25 1204 Display And Banner Designer: [facility] External Provider IMG CT PROCEDURES Edited Result - Final * (ABNORMAL) Sed Rate by Modified Westergren (09/06/2025 8:50 AM EDT) Erythrocyte Sedimentation Rate 46(H) 0 - 15 MM/HR [facility] Comment:Patients with polycy themia and many hemoglobin abnormalitiesmay have depressed sed rates whereas patients with anemiamay have elevated sed rates. 09/06/2025 8:50 AM EDT 09/06/2025 8:54 AM EDT us Generic External Data Provider LAB BLOOD ORDERAB LES Final Result Performing Organization Address [facility] Co de Phone Number [facility] [address] [place] [phone] * (ABNORMAL) C-reactive Protein (09/06/2025 8:50 AM EDT) Only the most recent of2 resultswithin the time period is included. C Reactive Protein 0.57(H) < or = 0.50 mg/dL [facility] 09/06/2025 8:50 AM EDT 09/06/2025 8:54 AM EDT Generic External Data Provider LAB BLOOD ORDERAB LES Final Result Performing Organization Address [facility] Co de Phone Number [facility] [address] [place] [phone] * (ABNORMAL) VENOUS BLOOD GAS (09/06/2025 8:48 AM EDT) VBG pH 7.43 7.32 - 7.43 [facility] Comment:METER #: [id number] additional_comment: Cb gentilj VBG PCO2 29 mmHg [facility] Comment:METER #: [id number] additional_comment: Cb gentilj VBG PO2 71 mmHg [facility] Comment:METER #: [id number] additional_comment: Cb gentilj VBG Base Excess -3.3 mmol/L [facility] Comment:METER #: [id number] additional_comment: Cb gentilj VBG HCO3 20(L) 22 - 26 mmol/L [facility] Comment:METER #: [id number] additional_comment: Cb gentilj O2 Sat, Demetrio 92.0 % [facility] Comment:METER #: [id number] additional_comment: Cb gentilj 09/06/2025 8:48 AM EDT 09/06/2025 8:51 AM EDT Generic External Data Provider LAB BLOOD ORDERAB LES Final Result Performing Organization Address [facility] Co de Phone Number [facility] [address] [place] [phone] * Influenza A B2 ID NOW (Yarbrough) (09/06/2025 8:42 AM EDT) IDNOW SERIAL# [id number] [facility] Influenza A Negative Negative [facility] Influenza B2 Negative Negative [facility] Influenza A B2 Note See Note [facility] Comment:The Yarbrough ID NOW In fluenza [...] Final Result Performing Organization Address [facility] Co de Phone Number [facility] [address] [place] [phone] * COVID-19 ID NOW (YARBROUGH) (09/06/2025 8:42 AM EDT) IDNOW SERIAL# [id number] [facility] COVID-19 TEST Negative Negative [facility] COVID-19 NOTE See Note [facility] Comment: Results are for the identification of SARS-CoV2 RNA. TheSARS-CoV2 RNA is generally detectable in respiratory samplesduring the acute phase of infection. Positive results areindicative of the presence of SARS-CoV-2 RNA; clinicalcorrelation with patient history and other diagnosticinformation is necessary to determine patient infectionstatus. Positive results do not rule out bacterial infectionor co- infection with other viruses.Testing facilities within the [place] and itsregional medical centerritories are required to report all positive results [...] use by authorized laboratories.Testing performed on the [employer] NOW utilizing NAAT. 09/06/2025 8:42 AM EDT 09/06/2025 8:46 AM EDT Generic External Data Provider LAB MOLECULAR YAO GNOSTICS ORDERABLES Final Result Performing Organization Address City/[facility]/ZIP Co de Phone Number [facility] [address] [place] [phone] * Slide Review (09/06/2025 12:46 AM EDT) Only the most recent of3 resultswithin the time period is included. Slide Review VERIFIED [facility] 09/06/2025 12:4 6 AM EDT 09/06/2025 12:51 AM EDT ANDalyze External Data Provider LAB BLOOD ORDERAB LES Final Result Performing Organization Address [facility] Co de Phone Number [facility] [address] [place] [phone] * HOLD LT BLUE - POSSIBLE COAG (09/06/2025 12:46 AM EDT) Only the most recent of2 resultswithin the time period is included. Hold Lt Blue - Possible Coag SEE NOTE [facility] Comment:Specimen will be hel d untested for 4 hours. Call Hematologyif testing is desired. 09/06/2025 12:4 6 AM EDT 09/06/2025 12:54 AM EDT us Generic External Data Provider LAB BLOOD ORDERAB LES Final Result Performing Organization Address City/State/[facility] Co de Phone Number [facility] [address] [place] [phone] * XR Chest 2 Views (09/03/2025 12:15 PM EDT) Anatomical Region Laterality Modality Chest Radiographic Lamar ging 09/03/2025 12:1 5 PM EDT Narrative 09/03/2025 12:34 PM EDT [address] [address] XRay Report Signed Patient: Charbel Delgado MR#: [id number] : 1970 Acct:[id number] Age/Sex: 55 / M ADM Date: 09/03/25 Loc: HO.ED Attending Dr: Ordering Physician: Johanna Liao Date of Service: 09/03/25 Procedure(s): XR chest 2V Accession Number(s): [id number] cc: [facility]; Johanna Liao Reason for Exam: hypoxic [...] Wang MD in OV> 09/03/25 1231 DD/ TD/TT: 09/03/251224 Display And Banner Designer: Procedure Note Moy, Image - 09/03/2025 [place] [address] XRay Report Signed Patient: Isaias Delgado#: [id number] : 1970Acct:[id number] Age/Sex: 55 / MADM Date: 09/03/25 Loc: HO.ED Attending Dr: Ordering Physician: Johanna Liao Date of Service: 09/03/25 Procedure(s): XR chest 2V Accession Number(s): [id number] cc: [facility]; Johanna Liao Reason for Exam: hypoxic [...] in OV> 09/03/25 1231 DD/ 1215 TD/TT: 09/03/251224 Display And Banner Designer: [facility] External Provider IMG XR PROCEDURES Final Result * Hold Lavender - Possible Hematology (09/03/2025 11:54 AM EDT) Hold Lavender - Possible Hematololgy SEE NOTE [facility] Comment:Specimen will be hel d untested for 8 hours. Call Hematologyif testing is desired. 09/03/2025 11:5 4 AM EDT 09/03/2025 12:02 PM EDT us Generic External Data Provider HISTORICAL/NON OR DERABLE LABS Final Result Performing Organization Address City/[facility]/ZIP Co de Phone Number [facility] [address] [place] [phone] * Lipase (09/03/2025 11:54 AM EDT) Only the most recent of2 resultswithin the time period is included. Pathologist [facility] Lipase 25 8 - 78 U/L [facility] 09/03/2025 11:5 4 AM EDT 09/03/2025 12:03 PM EDT us Generic External Data Provider LAB BLOOD ORDERAB LES Final Result Performing Organization Address City/[facility]/ZIP Co de Phone Number [facility] [address] [place] [phone] * Urinalysis w/reflex microscopic (08/21/2025 11:09 PM EDT) [facility] Color Urine Dark Yellow [facility] Appearance Urine Clear [facility] PH 5.0 5.0 - 9.0 [facility] Glucose Urine UA Negative Negative mg/dL [facility] Urine Blood Negative Negative [facility] Specific [place] - Urine 1.015 1.005 - 1.025 [facility] Urine Protein Negative Neg-Trace mg/dL [facility] Urine Ketones Negative Negative mg/dL [facility] Nitrite Urine Negative Negative [facility] Leukocyte Esterase Urine Negative Negative [facility] 08/21/2025 11:0 9 PM EDT 08/21/2025 11:13 PM EDT Narrative [facility] - 08/21/2025 11:16 PM EDT [id number], Clean Catch Generic External Data Provider LAB URINE ORDERAB LES Final Result Performing Organization Address City/[facility]/ZIP Co de Phone Number [facility] [address] [place] [phone] * (ABNORMAL) Lipid Panel, Standard (08/21/2025 8:16 PM EDT) Triglycerides 62 <150 mg/dL [facility] Comment:Desirable Triglyceri de: less than 150 mg/dLBorderline High Triglyceride 150-199 mg/dLHigh Triglyceride: 200-499 mg/dLVery High Triglyceride: greater than or equal to 5OO mg/dL Cholesterol 118 <200 mg/dL [facility] Comment:Desirable Cholestero l: less than 200 mg/dLBorderline High Cholesterol: 200-239 mg/dLHigh Cholesterol: greater than 239 mg/dL LDL Cholesterol Calculated 77 <100 mg/dL [facility] Comment:Desirable LDL: less than 100 mg/dLNear Optimal/Above Optimal LDL: 110- 129 mg/dLBorderline High LDL: 130-159 mg/dLHigh LDL: 160-189 mg/dLVery High LDL: greater than or equal to 190 mg/dL HDL Cholesterol 29(L) >40 mg/dL [facility] Comment:Desirable HDL: great er than 40 mg/dL Note: This HDL assay may give artificially low results in patients with liver disease. 08/21/2025 8:16 PM EDT 08/21/2025 8:22 PM EDT us Generic External Data Provider LAB BLOOD ORDERAB LES Final Result Performing Organization Address City/[facility]/ZIP Co de Phone Number [facility] [address] [place] [phone] * XR Foot 3+ Views Right (08/15/2025 8:10 AM EDT) Anatomical Region Laterality Modality Lower Extremities, Foot Right Radiogra phic Imaging 08/15/2025 8:10 AM EDT Narrative 08/15/2025 8:34 AM EDT [address] [address] XRay Report Signed Patient: Charbel Delgado MR#: [id number] : 1970 Acct:[id number] Age/Sex: 55 / M ADM Date: 08/15/25 Loc: [facility]: Yazmin WALLACE Ordering Physician: Yazmin Shafer Date of Service: 08/15/25 Procedure(s): XR foot RT min 3V Accession Number(s): [id number] cc: Yazmin Shafer; [facility] Reason for Exam: right foot pain [...] in OV> 08/15/25830 DD/ 9 TD/TT: 08/15/25819 Display And Banner Designer: Procedure Note Donotfernandointerpreter, Image - 08/15/[address] [address] XRay Report Signed Patient: Rod DelgadoR#: [id number] : 1970Acct:[id number] Age/Sex: 55 / MADM Date: 08/15/25 Loc: [facility]: Yazmin WALLACE Ordering Physician: Yazmin Shafer Date of Service: 08/15/25 Procedure(s): XR foot RT min 3V Accession Number(s): [id number] cc: Yazmin Shafer; [facility] Reason for Exam: right foot pain [...] in OV> 08/15/25830 DD/ 9 TD/TT: 08/15/25 0820 Display And Banner Designer: [facility] External Provider IMG XR PROCEDURES Final Result * B Type Natriuretic Peptide (BNP) (07/06/2025 5:58 PM EDT) B Type Natriuretic Peptide 100 <100 pg/mL [facility] 07/06/2025 5:58 PM EDT 07/06/2025 6:06 PM EDT us Generic External Data Provider LAB BLOOD ORDERAB LES Final Result [facility] [address] [place] [phone] from Last 3 Months Insurance [facility] [place] [address] [facility] [address] [facility] [place] [address] [facility] [place] Care Teams Sap Functional Analyst Relationship Specialty Start Date End Date Charbel Calles RN [address] [place] [phone] Registered Nurse Family Medicine 09/11/25 Conor Vidal 09/11/25
--- OUTSIDE RECORDS SUMMARY | 2025-09-27 01:44 | XMS_ITS | Encounter Summary ---
Author Organization [facility] Address [address] [place] [address] [place] [address] Care Team Providers Care Apartment Manager Name Role Phone Charbel Calles RN Unavailable [phone] Conor Vidal Unavailable Encounter Details Date Type Department Care Team (Latest Contact Info) Description 09/08/2025 Results Follow-Up [facility] Information Management [address] [place] [address] External Provider, [facility] CTA Chest PE Protocal, XR [...] on filedocumented in this encounter Care Teams Apartment Manager Relationship Specialty Start Date End Date Charbel Calles RN [address] [place] [phone] Registered Nurse Family Medicine 09/11/25 Conor Vidal 09/11/25 documented as of this encounter
--- OUTSIDE RECORDS SUMMARY | 2025-09-27 01:44 | XMS_ITS | Encounter Summary ---
Author Organization [facility] Address [address] [facility] [address] [place] [phone] Phone Care Team Providers Care Special Education Classroom Aide Name Role Phone Elbert Hayward MD Primary Care Provider [facility], [facility] Primary Care Provider Pcp, Unknown Unavailable Unavailable Encounter Details Date Type Department Care Team (Late st Contact Info) Description 10/06/2023 Procedure Pass [facility], Ct Scan - [address] [address] Social History Tobacco Use Types Packs/Day Years [...] on filedocumented in this encounter Care Teams Special Education Classroom Aide Relationship Specialty Start Date End Date Elbert Hayward MD PCP - General 05/13/14 10/06/23 [facility], MD [address] [place] [address] PCP - General 10/07/23 Pcp, Unknown 10/07/23 documented as of this encounter Additional Source Comments The information contained in this document represents components of the legal health record. It is not the complete legal health record.[facility]
== END 2025-09-27 11:32 | disposition home or self-care (01) ==
PROVIDERS: Emergency Provider Emergency Medicine
DX: F10.129 Alcohol abuse with intoxication, unspecified (principal); Y90.9 Presence of alcohol in blood, level not specified; R20.8 Other disturbances of skin sensation; Z59.02 Unsheltered homelessness
CPT/HCPCS: 99284

== ENCOUNTER 2025-09-27 23:15 | Emergency (ER) | payer MEDICAID, SELFPAY ==
--- NOTE | ~2025-09-27 | XR_ITS ---
CLINICAL HISTORY: hypoxic 1 view chest x-ray Comparison: 09/13/2025 Findings: The lungs are clear. Normal size heart. No acute fracture. IMPRESSION: 1. No acute findings. This document has been electronically signed by: Chris Causey MD on 09/28/2025 04:28:54
[2025-09-27 23:23] VITALS: PULSE 68; O2SAT 99
--- NOTE | 2025-09-27 23:38 | ED.ALCOHOL ---
HPI - Alcohol General Chief Complaint: ETOH/Substance Use Stated Complaint: HIDING FROM RAIN/HPD CALLED,ETOH USE,AGGRESIVE Time Seen by Provider: 09/27/25 23:16 Source: patient Mode of arrival: ambulatory Limitations: no limitations History of Present Illness ED Provider: Dr. Alexandria Sweeney HPI narrative: Patient comes to the emergency room via ambulance. According to the patient, it was Cold and raining outside, seems that the patient was standing under someone's porch and they called PD. Patient admits that he has been drinking alcohol. Denies any falls. Related Data Previous Rx's ?Medication ?Instructions ?Recorded amoxicillin 875 mg-potassium 1 tab PO BID 4 days #8 tabs 09/17/25 clavulanate 125 mg tablet doxycycline hyclate 100 mg tablet 100 mg PO BID 4 days #8 tabs 09/17/25 nitrofurantoin 100 mg PO Q12H 5 days #10 caps 09/17/25 monohydrate/macrocrystals 100 mg capsule (Macrobid) Allergies Allergy/AdvReac Type Severity Reaction Status Date / Time No Known Allergies (No Known Allergy Verified 09/27/25 23:46 Allergies*) Review of Systems Review of Systems: Constitutional : No Weight loss, No Fever, No Chills, No Night Sweats, No Fatigue, No Malaise ENT/Mouth : No Hearing loss, No Ear Pain, No Nasal Congestion, No Sinus Pain, No Hoarseness, No sore throat, No Rhinorrhea, No Swallowing Difficulty Eyes: No Eye Pain, No Swelling, No Redness, No Foreign Body, No Discharge, No Vision Changes Cardiovascular : No Chest Pain, No SOB, No Dyspnea on Exertion, No Orthopnea, No Edema, No Palpitations Respiratory : No Cough, No Sputum, No Wheezing, No Smoke Exposure, No Dyspnea Gastrointestinal : No Nausea, No Vomiting, No Diarrhea, No Constipation, No abdominal Pain, No Hematochezia, No Melena Genitourinary : no irregular bleeding, No Dysuria, No Urinary Frequency, No Hematuria, No Urinary Incontinence, No Urgency, No Flank Pain, No Urinary Flow Changes, No Hesitancy Musculoskeletal : No joint pain, No Myalgias, No Joint Swelling Skin : No Skin Lesions, No rash Neuro : No Weakness, No Numbness, No Paresthesias, No Loss of Consciousness, No Dizziness, No Headache Psych : No Anxiety/Panic, No Depression, No SI/HI/AH/VH, Admits to alcohol abuse Heme/Lymph: No Bruising, No Bleeding,No Lymphadenopathy Endocrine : No Polyuria, No Polydipsia, No Temperature Intolerance [facility] Past Medical History Medical History Hemorrhoids, internal, with bleeding Rectal bleeding Pancytopenia Alcohol withdrawal Alcohol use disorder, severe, dependence Pancytopenia Cirrhosis Hypomagnesemia Aspiration pneumonia Alcohol use disorder CHF (congestive heart failure) Alcohol abuse Acute hypoxemic respiratory failure Anemia Pneumonia Alcohol withdrawal syndrome Alcohol abuse Thrombocytopenia Esophageal varices Acute on chronic anemia Alcoholic liver disease Thrombocytopenia Malnutrition CHF (congestive heart failure) Anemia Thrombocytopenia Acute on chronic anemia CHF (congestive heart failure) Anemia Alcohol abuse Surgical History No history of previous surgery Social History Social History Household Members: None Household Members Other:: homeless Housing: Homeless Housing Other:: homeless Do you presently have visiting nurse or other home services: No Alcohol intake: current Alcohol intake frequency: 3 or more drinks per day Alcohol type: hard liquor Comment: pt refuse to have staff remain in [place] Patient Tobacco Use Status: Former Tobacco user Tobacco use type: Cigarette Second Hand Smoke Exposure: No Advance Directives: Yes Advance Directives on File: Yes Advance Directives Date on File: 07/13/23 service: No Physical Exam ED Exam Exam: Appearance: Alert. Oriented X3. No acute distress. Eyes: Pupils equal, round and reactive to light. ENT: Pharynx normal. Neck: Normal inspection. Neck supple. No lymph nodes noted. No crepitus CVS: Normal heart rate and rhythm. Pulses normal. Normal S1 and S2 Respiratory: No respiratory distress. Breath sounds normal. No Wheezing. No rales Abdomen: Soft and nontender. No rigidity. No distention. Skin: Skin warm and dry. Normal skin color. Normal skin turgor. Extremities: No lower extremity edema. No Lacerations. No Rash Neuro: Oriented X 3. No motor deficit. No sensory deficit. Moving all extremities. No slurred speech. CN 2 through 12 grossly intact Psych: calm, cooperative, normal affect Vital Signs: Vital Signs - 24 hr 09/27/25 23:44 09/28/25 01:17 09/28/25 02:59 Temperature 98.2 F 98.2 F 98 F Pulse Rate 73 67 68 Respiratory Rate 18 18 14 Blood Pressure 112/65 89/48 L 90/48 L Pulse Oximetry 95 93 95 Oxygen Delivery Method Nasal Cannula Nasal Cannula Oxygen Flow Rate 2 09/28/25 03:28 09/28/25 05:52 09/28/25 07:32 Temperature 98.2 F Pulse Rate 67 71 Respiratory Rate 18 18 17 Blood Pressure 96/57 L 104/60 100/55 L Pulse Oximetry 95 92 93 Oxygen Delivery Method Nasal Cannula Nasal Cannula Nasal Cannula Oxygen Flow Rate 2 2 2 09/28/25 09:24 Temperature Pulse Rate 69 Respiratory Rate Blood Pressure 100/61 Pulse Oximetry 93 Oxygen Delivery Method Nasal Cannula Oxygen Flow Rate 2 BMI result Body Mass Index 30.2 Course Course Course Narrative: When patient arrived, EMS put him on a non-rebreather, supposedly, at 10 L. However, when I saw the patient, patient did have a non-rebreather on what the oxygen was a 2 L. the non-rebreather was removed and switch to 2 L nasal cannula. Patient has been doing well with his 2 L. Patient denies any rectal bleeding. Denies any black stool. Patient refuses guaiac/digital rectal exam Patient states that he did not even called the ambulance, he is just here because in by called for him. Patient does not want to go to detox, states that he does not want to be admitted to hospital Reevaluation(s) Reevaluation #1: 6:37 AM 09/28/2025 (Dr. Beck Greer): I, Dr. Greer have take over the care of this patient, I reviewed pertinent blood work and imaging, re-evaluated the patient when appropriate. Patient is sleeping discussed case with provider during sign-out Medical Decision Making Medical Decision Making MDM Narrative: It was noted that in patient's last hematology, patient's hemoglobin was 8.5. Today we repeated it, it is 10.5. Patient known to have previous GI bleeds. Patient denies any recent GI bleed. Patient absolutely refused digital rectal exam guaiac test. My interpretation of labs: Patient's hematology is at baseline, hemoglobin back to 10.5 which is patient's baseline. Platelets 59, patient has chronic thrombocytopenia. Likely secondary to alcohol. Patient is at baseline. No significant abnormality in patient's chemistry Chest x-ray: No acute findings. Differential Diagnosis Differential Diagnoses: The differential diagnosis associated with the presentation includes Admission/Observation Consideration of admission/observation: Escalation of care including admission/observation considered (Given patient's past medical history, EMS report, observation was considered) Lab Data MDM Lab Attestation statement: I reviewed the patient's lab results. 09/28/25 00:13 09/28/25 00:13 Labs: Lab Results 09/28/25 Range/Units 00:13 WBC 5.6 (4.8-10.8) X10*3/uL RBC 3.53 L D (4.60-5.80) X10*6/uL Hgb 10.5 L D (14.0-18.0) g/dl Hct 32.1 L (42.0-52.0) % MCV 90.9 (80.0-98.0) fL MCH 29.7 (27.0-33.0) pg MCHC 32.7 (31.0-36.0) g/dl RDW 16.2 H (11.0-16.0) % Plt Count 59 L (160-400) X10*3/uL MPV 11.8 (9.4-12.4) fL Immature Gran % (Auto) 1.2 H (0.0-0.4) % Neut % (Auto) 63.5 (45-73) % Lymph % (Auto) 24.4 (20-40) % [place] % (Auto) 7.0 (2-11) % Eos % (Auto) 2.1 (0-4) % Baso % (Auto) 1.8 (0-2) % Lymph # (Auto) 1.4 (1.2-4.9) X10*3/uL [place] # (Auto) 0.4 (0.1-1.2) X10*3/uL Eos # (Auto) 0.1 (0.0-0.4) X10*3/uL Baso # (Auto) 0.1 (0.0-0.2) X10*3/uL Abs Immat Gran (auto) 0.07 H (0.00-0.03) X10*3/uL Absolute Neuts (auto) 3.6 (2.0-8.3) x10*3/uL Absolute Nucleated RBC 0.000 (0.0-0.012) X10*3/uL Nucleated RBC % (auto) 0.0 (0.0-0.2) /100WBC Sodium 137 (135-145) mmol/L Potassium 3.5 (3.3-5.1) mmol/L Chloride 111 H (96-108) mmol/L Carbon Dioxide 15 L (22-29) mmol/L Anion Gap 15 (12-20) BUN 19 H (9-16) mg/dL Creatinine 0.86 (0.5-1.4) mg/dL Estim Creat Clear Calc 85.0 Estimated GFR > 60 Random Glucose 102 (60-115) mg/dL Calcium 8.6 D (8.4-10.2) mg/dL Total Bilirubin 0.3 (0.0-1.0) mg/dL Direct Bilirubin 0.2 (0.0-0.5) mg/dL AST 38 H (5-37) U/L ALT 12 (0-40) U/L Alkaline Phosphatase 115 (39-117) U/L Total Protein 7.8 (6.5-8.0) g/dL Albumin 3.7 (3.5-5.0) g/dL Blood Type B Positive Antibody Screen NEGATIVE Independent Interpretation I performed an independent interpretation of an: Plain X-Ray Radiology Impression Discussion of test interpretation with radiology: I have reviewed the radiologist's reading. Radiologist Impression: The lungs are clear. Normal size heart. No acute fracture. IMPRESSION: 1. No acute findings. Critical Care Time Critical Care Time Critical Care Time: Yes Total Critical Care Time: 35 Attestation: I have personally provided critical care time. Time includes review of lab data, radiology results, discussion with consultants, and monitoring for potential decompensation. Intervention performed as documented. Discharge Plan Discharge Clinical Impression: Alcohol intoxication Instructions: Alcohol Intoxication (ED) Additional Instructions: Alcohol use disorder You were seen in the Emergency Department today for treatment of alcohol use disorder.? You may have been given medications to help with your withdrawal symptoms.? Please do not drink alcohol with them. This is very dangerous and can cause respiratory depression or other adverse reactions depending on the medication. If you would like to cut down or stop your alcohol use please consider calling our outpatient Addiction Treatment office:? [facility] (M-F 9a-5p) [address] You have also been given a list of treatment providers in the area that can assist as well.? If you experience seizures, vomiting blood, black stools, falls, severe headache, chest pain, fevers, trouble breathing, hallucinations or any other concerns you need to call 911 or seek immediate care. Please stay hydrated. Prescriptions: No Action amoxicillin-pot clavulanate 875-125 mg tablet 1 tab PO BID 4 Days Qty: 8 0RF doxycycline hyclate 100 mg tablet 100 mg PO BID 4 Days Qty: 8 0RF nitrofurantoin monohyd/m-cryst [Macrobid] 100 mg capsule 100 mg PO Q12H 5 Days Qty: 10 0RF Rx Instructions: must administer with a meal/food Print Language: Bengali
[2025-09-27 23:44] VITALS: BP 112/65; PULSE 68; PULSE 73; RESP 18; TEMP 36.8; O2SAT 78; O2SAT 95; BMI 30.2
[2025-09-28] VITALS (7 sets, daily range): BP systolic 89–104; BP diastolic 48–61; PULSE 67–71; RESP 14–18; TEMP -17.7–36.8; O2SAT 92–95
--- OUTSIDE RECORDS SUMMARY | 2025-09-28 00:07 | XMS_ITS | Clinical Summary ---
Author Organization [facility] Address [address] [place] [address] Phone Care Team Providers Care Ophthalmic Medical Assistant Name Role Phone [facility], Facility Primary Care Provider Pcp, Unknown Unavailable [...] magnesia). Active monobasic and dibasic sodium phosphates (91536 ENEMA) 19-7 gram/[address] 1 [...] Patient presented with altered mental status from [facility] where he appeared more lethargic than [...] EST) SODIUM 137 133 - 146 mmol/L [facility] POTASSIUM 4.5 3.3 - 5.1 mmol/L [facility] CHLORIDE 105 96 - 108 mmol/L [facility] CO2 22 21 - 35 mmol/L [facility] BUN 14 6 - 19 mg/dL [facility] CREATININE 0.80 0.5 - 1.5 mg/dL [facility] GLUCOSE 104(H) 70 - 99 mg/dL [facility] ALBUMIN 4.1 3.9 - 4.8 g/dL [facility] TOTAL PROTEIN 8.1(H) 6.5 - 8.0 g/dL [facility] CALCIUM 10.4(H) 8.4 - 10.3 mg/dL [facility] ALKALINE PHOSPHATASE 118(H) 39 - 117 U/L [facility] TOTAL BILIRUBIN 0.6 0.0 - 1.2 mg/dL [facility] AST 25 0 - 37 U/L [facility] ALT 7 0 - 40 U/L [facility] GLOBULIN 4.0 1 - 4.8 g/dL [facility] EGFR 105 >59 mL/min/1.7 3m2 [facility] Comment:Estimated glomerular filtration rate calculated using the CKD-EPI refit equation. ANION GAP 15 10 - 20 mmol/L [facility] Blood 01/04/2024 9:22 AM EST 01/04/2024 9:53 AM EST Missy WALLACE LAB BLOOD BKR ORDERABLES Final Result Performing Organization Address City/[facility]/ZIP Co de Phone Number [address] [address] * Hepatitis C antibody, qualitative (01/04/2024 9:22 AM EST) HCV NON-REACTIV E NON-REACTI VE [facility] Blood 01/04/2024 9:22 AM EST 01/04/2024 9:53 AM EST Missy WALLACE LAB BLOOD BKR ORDERABLES Final Result Performing Organization Address [facility]/ZIP Co de Phone Number [address] [address] from Last 3 Months or Most Recently Relevant to Health Maintenance [place] [address] [employer] [facility] [address] [place] [address] [place] [address] [place] [address] [place] [address] [employer] [facility] [employer] [facility] [employer] Advance Directives For more information, please contact: [phone] (9AM - 5PM [facility], Monday-Monday) Documents on File Type Date Recorded Patient Negative Cleaner Expl anation Healthcare Proxy 10/09/2023 10:49 AM [...] Agents on File Name Relationship Healthcare Agent [facility] Communication Guillermo Lobato .Primary Health Care Agent (Proxy form on file) Care Teams Ophthalmic Medical Assistant Relationship Specialty Start Date End Date [facility] [address] [place] [address] PCP - General 10/07/23 Pcp, Unknown 10/07/23 Additional Source Comments The information contained in this document represents components of the legal health record. It is not the complete legal health record.[facility]
--- OUTSIDE RECORDS SUMMARY | 2025-09-28 00:07 | XMS_ITS | Encounter Summary ---
Author Organization [facility] Address [address] [place] [phone] Phone Care Team Providers Care Sterile Proc Tech Name Role Phone [facility], [facility] Primary Care Provider Pcp, Unknown Unavailable Unavailable Encounter Details Date Type Department Care Team ([facility] st Contact Info) Description 10/31/2023 Procedure Pass [facility] Endoscopy Admitting Dept Virtual Department [address] [place] [id number] Social History Tobacco Use Types Packs/Day Years [...] on filedocumented in this encounter Care Teams Sterile Proc Tech Relationship Specialty Start Date End Date [facility] [address] [place] [address] PCP - General 10/07/23 Pcp, Unknown 10/07/23 documented as of this encounter Additional Source Comments The information contained in this document represents components of the legal health record. It is not the complete legal health record.[facility]
--- OUTSIDE RECORDS SUMMARY | 2025-09-28 00:08 | XMS_ITS | Encounter Summary ---
Author Organization [facility] Address [address] [facility] [address] [place] [address] Phone Care Team Providers Care Senior Marketing Data Analyst Name Role Phone [facility], [facility] Primary Care Provider Pcp, Unknown Unavailable Unavailable Encounter Details Date Type Department Care Team (Late st Contact Info) Description 01/04/2024 Transcribe Orders [facility] Phleb [address] [address] Missy Miranda PA [address] [place] [phone] [email or web address] Need for hepatitis C screening test (Primary [...] EST) FERRITIN 168 30 - 400 ug/L [facility] Blood 01/04/2024 9:22 AM EST 01/04/2024 9:53 AM EST Missy WALLACE LAB BLOOD BKR ORDERABLES Final Result Performing Organization Address City/[facility]/ZIP Co de Phone Number [address] [address] * (ABNORMAL) PT-INR (01/04/2024 9:22 AM EST) Pathologist [facility] PT 15.9(H) 10.2 - 12.9 sec [facility] INR 1.4(H) 0.9 - 1.1 [facility] Comment:Therapeutic range fo r oral Vitamin K antagonists: 2.0-3.5 Blood 01/04/2024 9:22 AM EST 01/04/2024 9:53 AM EST Missy WALLACE LAB BLOOD BKR ORDERABLES Final Result Performing Organization Address City[facility]/ZIP Co de Phone Number [address] [address] * Iron and iron binding capacity (01/04/2024 9:22 AM EST) Pathologist [facility] IRON 81 45 - 160 ug/dL [facility] IRON BINDING CAPACITY 326 228 - 428 ug/dL [facility] TRANSFERRIN SATURAT. 25 20 - 55 % [facility] Blood 01/04/2024 9:22 AM EST 01/04/2024 9:53 AM EST Missy WALLACE LAB BLOOD BKR ORDERABLES Final Result Performing Organization Address City[facility]/ZIP Co de Phone Number [address] [address] * Lipase (01/04/2024 9:22 AM EST) Pathologist [facility] LIPASE 35 16 - 63 U/L [facility] Blood 01/04/2024 9:22 AM EST 01/04/2024 9:53 AM EST Missy WALLACE LAB BLOOD BKR ORDERABLES Final Result Performing Organization Address [facility]/ZIP Co de Phone Number [address] [address] * Hepatitis C antibody, qualitative (01/04/2024 9:22 AM EST) Pathologist [facility] HCV NON-REACTIV E NON-REACTI VE [facility] Blood 01/04/2024 9:22 AM EST 01/04/2024 9:53 AM EST Missy WALLACE LAB BLOOD BKR ORDERABLES Final Result Performing Organization Address [facility] Co de Phone Number [address] [address] * Hepatitis B surface antibody (01/04/2024 9:22 AM EST) Pathologist [facility] HBV SURFACE ANTIBODY Negative [facility] Comment: Unvaccinated: Negative Vaccinated: Positive Blood 01/04/2024 9:22 AM EST 01/04/2024 9:53 AM EST Missy WALLACE LAB BLOOD BKR ORDERABLES Final Result Performing Organization Address City[facility]/ZIP Co de Phone Number [address] [address] * Hepatitis B surface antigen (01/04/2024 9:22 AM EST) HBV SURFACE ANTIGEN NON-REACTI VE NON-REACTI VE [facility] Blood 01/04/2024 9:22 AM EST 01/04/2024 9:53 AM EST Missy WALLACE LAB BLOOD BKR ORDERABLES Final Result Performing Organization Address [facility] Co de Phone Number [address] [address] * Hepatitis B core antibody, total (01/04/2024 9:22 AM EST) HEP B CORE AB, TOT NON-REACTI VE NON-REACTI VE [facility] Blood 01/04/2024 9:22 AM EST 01/04/2024 9:53 AM EST Missy WALLACE LAB BLOOD BKR ORDERABLES Final Result Performing Organization Address [facility] Co de Phone Number [address] [address] * HEPATITIS A ANTIBODY, TOTAL (01/04/2024 9:22 AM EST) HAV TOTAL AB NON-REACTI VE NON-REACTI VE [facility] Blood 01/04/2024 9:22 AM EST 01/04/2024 9:53 AM EST Missy WALLACE LAB BLOOD BKR ORDERABLES Final Result Performing Organization Address [facility]/ZIP Co de Phone Number [address] [address] * (ABNORMAL) GGT (Gamma glutamyl transferase) (01/04/2024 9:22 AM EST) Pathologist [facility] GGT 54(H) 11 - 51 U/L [facility] Blood 01/04/2024 9:22 AM EST 01/04/2024 9:53 AM EST Missy WALLACE LAB BLOOD BKR ORDERABLES Final Result [address] [address] * C-Reactive Protein (01/04/2024 9:22 AM EST) [facility] C REACTIVE PROTEIN <3.0 0.0 - 4.0 mg/L [facility] Blood 01/04/2024 9:22 AM EST 01/04/2024 9:53 AM EST Missy WALLACE LAB BLOOD BKR ORDERABLES Final Result [address] [address] * (ABNORMAL) Comprehensive metabolic panel (01/04/2024 9:22 AM EST) Pathologist [facility] SODIUM 137 133 - 146 mmol/L [facility] POTASSIUM 4.5 3.3 - 5.1 mmol/L [facility] CHLORIDE 105 96 - 108 mmol/L [facility] CO2 22 21 - 35 mmol/L [facility] BUN 14 6 - 19 mg/dL [facility] CREATININE 0.80 0.5 - 1.5 mg/dL [facility] GLUCOSE 104(H) 70 - 99 mg/dL [facility] ALBUMIN 4.1 3.9 - 4.8 g/dL [facility] TOTAL PROTEIN 8.1(H) 6.5 - 8.0 g/dL [facility] CALCIUM 10.4(H) 8.4 - 10.3 mg/dL [facility] ALKALINE PHOSPHATASE 118(H) 39 - 117 U/L [facility] TOTAL BILIRUBIN 0.6 0.0 - 1.2 mg/dL [facility] AST 25 0 - 37 U/L [facility] ALT 7 0 - 40 U/L [facility] GLOBULIN 4.0 1 - 4.8 g/dL [facility] EGFR 105 >59 mL/min/1.7 3m2 [facility] Comment:Estimated glomerular filtration rate calculated using the CKD-EPI refit equation. ANION GAP 15 10 - 20 mmol/L [facility] Blood 01/04/2024 9:22 AM EST 01/04/2024 9:53 AM EST Missy WALLACE LAB BLOOD BKR ORDERABLES Final Result [address] [address] * (ABNORMAL) CBC and differential (01/04/2024 9:22 AM EST) WBC 3.17(L) 4.00 - 11.00 K/uL [facility] RBC 3.41(L) 4.23 - 5.82 M/uL [facility] HGB 10.7(L) 13.4 - 17.5 g/dL [facility] HCT 33.8(L) 37.0 - 51.0 % [facility] PLT 64(L) 140 - 430 K/uL [facility] Comment:Consistent with prev ious result. MCV 99.1(H) 78.0 - 97.0 fL [facility] MCH 31.4 25.0 - 33.0 pg [facility] MCHC 31.7(L) 32.0 - 36.0 g/dL [facility] RDW 13.0 11.0 - 15.0 % [facility] MPV 13.2(H) 8.4 - 12.8 fl [facility] DIFF METHOD Auto [facility] NEUTS 57.2 43.0 - 75.0 % [facility] LYMPHS 24.9 18.2 - 47.4 % [facility] MONOS 12.0(H) 4.00 - 11.00 % [facility] EOS 4.7 0.0 - 8.0 % [facility] BASOS 0.9 0.0 - 2.0 % [facility] Granulocytes, immature (%) 0.3 0.0 - 0.9 % [facility] ABSOLUTE NEUTS 1.81 1.80 - 7.70 K/uL [facility] ABSOLUTE LYMPHS 0.79(L) 1.00 - 3.10 K/uL [facility] ABSOLUTE MONOS 0.38 0.20 - 0.80 K/uL [facility] ABSOLUTE EOS 0.15 0.00 - 0.80 K/uL [facility] ABSOLUTE BASOS 0.03 0.00 - 0.09 K/uL [facility] Granulocytes, immature 0.01 0.00 - 0.05 K/uL [facility] Blood 01/04/2024 9:22 AM EST 01/04/2024 9:53 AM EST Missy Miranda [place] LAB BLOOD BKR ORDERABLES Final Result [address] [address] * (ABNORMAL) Immunoglobulin A (01/04/2024 9:22 AM EST) IgA 436(H) 70 - 400 mg/dL [facility] Blood 01/04/2024 9:22 AM EST 01/04/2024 9:53 AM EST [facility] Final Result [address] [address] * Tissue transglutaminase IgA (01/04/2024 9:22 AM EST) TTG IGA ANTIBODY 1.9 <4.0 (Negative) U/mL [facility] Blood 01/04/2024 9:22 AM EST 01/04/2024 9:53 AM EST Missy WALLACE LAB BLOOD BKR ORDERABLES Final Result [facility] [address] [place] [address] * Smooth Muscle Antibody (01/04/2024 9:22 AM EST) SMOOTH MUSCLE AB POSITIVE AT 1:20 [facility] Comment: Performing Physician, Max Jimenez M.D., [id number] Normal: Negative at 1:20 Blood 01/04/2024 9:22 AM EST 01/04/2024 9:53 AM EST Missy WALLACE LAB BLOOD ORDERABLES Fin al Result Performing Organization Address [facility] Co de Phone Number [address] [address] * Ceruloplasmin (01/04/2024 9:22 AM EST) CERULOPLASMIN 31 20 - 60 mg/dL [facility] Blood 01/04/2024 9:22 AM EST 01/04/2024 9:53 AM EST Missy WALLACE LAB BLOOD ORDERABLES Fin al Result Performing Organization Address [facility] Co de Phone Number [address] [address] * (ABNORMAL) Antinuclear antibody (JERMAIN) (01/04/2024 9:22 AM EST) JERMAIN SCREEN ON HEP 2 Positive(A ) Negative [facility] Comment:An JERMAIN Titer has bee n reflexed. The results will follow. Blood 01/04/2024 9:22 AM EST 01/04/2024 9:53 AM EST Missy WALLACE LAB BLOOD BKR ORDERABLES Final Result [address] [address] * Anti-Mitochondrial Antibody (AMA) (01/04/2024 9:22 AM EST) MITOCHONDRIAL AB NEGATIVE AT 1:20 [facility] Comment: Performing Physician, Max Jimenez M.D., [id number] Normal: Negative at 1:20 Blood 01/04/2024 9:22 AM EST 01/04/2024 9:53 AM EST Missy WALLACE LAB BLOOD ORDERABLES Fin al Result Performing Organization Address [facility] Co de Phone Number [address] [address] * Amylase (01/04/2024 9:22 AM EST) Pathologist [facility] AMYLASE 86 28 - 100 U/L [facility] Blood 01/04/2024 9:22 AM EST 01/04/2024 9:53 AM EST Missy WALLACE LAB BLOOD BKR ORDERABLES Final Result Performing Organization Address [facility] Co de Phone Number [address] [address] * AFP (non-maternal specimens) (01/04/2024 9:22 AM EST) [facility] AFP (NON-MATERNAL) 4.7 <7.9 ng/mL [facility] Comment: Test Methodology Filipe [id number] Patient results determined by assays using different manufacturers or methods may not be comparable. Blood 01/04/2024 9:22 AM EST 01/04/2024 9:53 AM EST Missy WALLACE LAB BLOOD BKR ORDERABLES Final Result Performing Organization Address [facility] Co de Phone Number [address] [address] * Lolwi-7-cofpmdcyhif phenotyping (01/04/2024 9:22 AM EST) ALPHA 1 ANTITRYPSIN 173 100 - 190 mg/dL [facility] [address] Comment: (NOTE) ADDITIONAL INFORMATION Method: Nephelometry A1A PHENOTYPE MM bands [facility] Comment: (NOTE) A single M isoform is detected. In the context of a normal pwqyk-8-ebbxyupyiga concentration, this is consistent with an MM phenotype. ADDITIONAL INFORMATION Method: Isoelectric Focusing, This assay identifies the phenotype of the circulating vajjb-0-dbamqcdxrdp (A1A) protein. If the patient is on replacement therapy or has been recently transfused, the phenotype will detect patient and replacement or transfused plasma A1A protein. This test also cannot detect a null allele which could be responsible for an A1A deficiency. Blood 01/04/2024 9:22 AM EST 01/04/2024 9:53 AM EST Missy WALLACE LAB BLOOD ORDERABLES [facility] al Result [facility] [address] [place] [address] documented in this encounter Visit Diagnoses Diagnosis Need for hepatitis C screening test- Primary Special screening examination for other specified viral diseases Hepatic cirrhosis, unspecified hepatic cirrhosis type, unspecified whether ascites present Esophageal varices in alcoholic cirrhosis Esophageal varices without mention of bleeding documented in this encounter Care Teams Senior Marketing Data Analyst Relationship Specialty Start Date End Date [facility] [address] [place] [address] PCP - General 10/07/23 Pcp, Unknown 10/07/23 documented as of this encounter Additional Source Comments The information contained in this document represents components of the legal health record. It is not the complete legal health record.[facility]
--- OUTSIDE RECORDS SUMMARY | 2025-09-28 00:08 | XMS_ITS | Encounter Summary ---
Author Organization [facility] Address [address] [facility] [address] [place] [address] Phone Care Team Providers Care Rolling Mill Plugger Name Role Phone [facility], [facility] Primary Care Provider Pcp, Unknown Unavailable Unavailable Encounter Details Date Type Department Care Team (Late st Contact Info) Description 02/02/2024 Procedure Pass [facility] Endoscopy Admitting Dept Virtual Department [address] [place] [address] Social History Tobacco Use Types Packs/Day Years [...] on filedocumented in this encounter Care Teams Rolling Mill Plugger Relationship Specialty Start Date End Date [facility] [address] [place] [address] PCP - General 10/07/23 Pcp, Unknown 10/07/23 documented as of this encounter Additional Source Comments The information contained in this document represents components of the legal health record. It is not the complete legal health record.[facility]
--- OUTSIDE RECORDS SUMMARY | 2025-09-28 00:08 | XMS_ITS | Encounter Summary ---
Author Organization [facility] Address [address] [facility] [address] [place] [address] Phone Care Team Providers Care District Leader Name Role Phone Elbert Hayward MD Primary Care Provider [facility], [facility] Primary Care Provider Pcp, Unknown Unavailable Unavailable Encounter Details Date Type Department Care Team (Late st Contact Info) Description 10/06/2023 Procedure Pass [facility], Ct Scan - [address] [address] Social History Tobacco Use Types Packs/Day Years [...] on filedocumented in this encounter Care Teams District Leader Relationship Specialty Start Date End Date Elbert Hayward MD PCP - General 05/13/14 10/06/23 [facility], MD Marya [address] [place] [address] PCP - General 10/07/23 Pcp, Unknown 10/07/23 documented as of this encounter Additional Source Comments The information contained in this document represents components of the legal health record. It is not the complete legal health record.[facility]
[2025-09-28 00:18] LABS: MANUAL DIFF FLAG NO
--- NOTE | 2025-09-28 00:25 | PC.NURSE ---
pt found outside by PD with pants down, EMS calld, pt SO02 at 77% on room air, non rebreather placed on 10L by EMS, sp02 99%.
[2025-09-28 00:35] LABS: Alanine Aminotransferase 12 U/L (0-40); Albumin Level 3.7 g/dL (3.5-5.0); Alkaline Phosphatase 115 U/L (39-117); Anion Gap 15 (12-20); Aspartate Amino Transferase 38 U/L (5-37); Blood Urea Nitrogen 19 mg/dL (9-16); Calcium 8.6 mg/dL (8.4-10.2); Carbon Dioxide 15 mmol/L (22-29); Chloride 111 mmol/L (96-108); Creatinine Clr Calc Pharmacy 85.0; Estimated Glomerular Filt Rate > 60; Hematocrit 32.1 % (42.0-52.0); Hemoglobin 10.5 g/dl (14.0-18.0); Imm Gran Abs Auto 0.07 X10*3/uL (0.00-0.03); Imm Gran Pct Auto 1.2 % (0.0-0.4); Lymphocytes Absolute Auto 1.4 X10*3/uL (1.2-4.9); Mean Corpuscular HGB Conc 32.7 g/dl (31.0-36.0); Mean Corpuscular Hemoglobin 29.7 pg (27.0-33.0); Mean Corpuscular Volume 90.9 fL (80.0-98.0); NRBC Abs Auto 0.000 X10*3/uL (0.0-0.012); NRBC Pct Auto 0.0 /100WBC (0.0-0.2); Potassium 3.5 mmol/L (3.3-5.1); Red Blood Count 3.53 X10*6/uL (4.60-5.80); Sodium 137 mmol/L (135-145); Total Protein 7.8 g/dL (6.5-8.0); White Blood Count 5.6 X10*3/uL (4.8-10.8)
[2025-09-28 00:36] LABS: Platelet Count 59 X10*3/uL (160-400)
--- NOTE | 2025-09-28 01:35 | PC.NURSE ---
pt on 2L 02, sp02 at 94%.
--- NOTE | 2025-09-28 12:28 | PC.NURSE ---
Pt wakes and demands to be discharged at this time. Pt expresses he is not interested in further care at this time. Pt provided with his personal clothing, a sandwich, and gingerale.
== END 2025-09-28 12:39 | disposition home or self-care (01) ==
PROVIDERS: Emergency Provider Emergency Medicine
DX: F10.129 Alcohol abuse with intoxication, unspecified (principal); Y90.9 Presence of alcohol in blood, level not specified; Z59.02 Unsheltered homelessness
CPT/HCPCS: 36415; 71045; 80048; 80076; 85025; 86850; 86900; 86901; 99284

== ENCOUNTER → 2025-09-28 02:06 | Outpatient (BNV) | payer MEDICAID, SELFPAY | PROVIDERS: Emergency Provider Emergency Medicine; Visit Provider Specialist | DX: R09.02 Hypoxemia (principal) | CPT/HCPCS: 71045 ==

== ENCOUNTER 2025-09-28 16:29 | Emergency (ER) | payer MEDICAID, SELFPAY ==
[2025-09-28 16:34] VITALS: BP 121/66; PULSE 67; RESP 18; TEMP 36.4; O2SAT 85; BMI 21.3
[2025-09-28 16:52] VITALS: O2SAT 94
--- OUTSIDE RECORDS SUMMARY | 2025-09-28 17:02 | XMS_ITS | Encounter Summary ---
Author Organization [employer] Address [address] [place] [address] [place] [address] Care Team Providers Care Business Info Consultant Name Role Phone Charbel Calles RN Unavailable [phone] Conor Vidal Unavailable Encounter Details Date Type Department Care Team (Late st Contact Info) Description 09/16/2025 Results Follow-Up Replaced By [facility] Information Management [address] [place] [address] Provider, Generic External Data XR Chest 1 [...] on filedocumented in this encounter Care Teams Business Info Consultant Relationship Specialty Start Date End Date Charbel Calles RN [address] [place] [address] Registered Nurse Family Medicine 09/11/25 Conor Vidal 09/11/25 documented as of this encounter
--- OUTSIDE RECORDS SUMMARY | 2025-09-28 17:02 | XMS_ITS ---
Author Organization [employer] Address [address] [place] [address] 7 [place] [address] Care Team Providers Care Card Boxer Name Role Phone Charbel Calles RN Unavailable [phone] Conor Vidal Unavailable [facility] Status:Outreach In Progress (Enrolling) Start date:09/11/2025 Enrollment reason:ADT Feed Overview ED- [place] [facility] [place] [facility] [place]. Case Team Name Relationship Phone Conor Vidal(Responsible Staff) [phone] Continued Care and Services Coordination
--- OUTSIDE RECORDS SUMMARY | 2025-09-28 17:02 | XMS_ITS | Encounter Summary ---
Author Organization [employer] Address [address] [place] [address] [place] [address] Care Team Providers Care Security Public Safety Officer Name Role Phone Charbel Calles RN Unavailable [phone] Conor Vidal Unavailable Encounter Details Date Type Department Care Team ([facility] st Contact Info) Description 09/03/2025 Results Follow-Up [facility] Information Management [address] [place] [address] Provider, Generic External Data XR Chest 2 [...] on filedocumented in this encounter Care Teams Security Public Safety Officer Relationship Specialty Start Date End Date Charbel Calles RN [address] [place] [address] Registered Nurse Family Medicine 09/11/25 Conor Vidal 09/11/25 documented as of this encounter
--- OUTSIDE RECORDS SUMMARY | 2025-09-28 17:02 | XMS_ITS | Encounter Summary ---
Author Organization [employer] Address [address] [place] [address] 7 [place] [address] Care Team Providers Care Lobster Man Name Role Phone Charbel Calles RN Unavailable [phone] Conor Vidal Unavailable Encounter Details Date Type Department Care Team ([facility] st Contact Info) Description 09/16/2025 Results Follow-Up [facility] Information Management [address] [place] [address] External Provider, [facility] XR Chest 1 View Social History Tobacco [...] on filedocumented in this encounter Care Teams Lobster Man Relationship Specialty Start Date End Date Charbel Calles RN [address] [place] [address] Registered Nurse Family Medicine 09/11/25 Conor Vidal 09/11/25 documented as of this encounter
--- OUTSIDE RECORDS SUMMARY | 2025-09-28 17:02 | XMS_ITS | Encounter Summary ---
Author Organization [employer] Address [address] [place] [address] [place] [address] Care Team Providers Care Foreclosure Home Inspector Name Role Phone Charbel Calles RN Unavailable Conor Vidal Unavailable Encounter Details Date Type Department Care Team (Latest Contact Info) Description 09/08/2025 Results Follow-Up [facility] Information Management [address] [place] [address] External Provider, [facility] CTA Chest PE Protocal, XR [...] on filedocumented in this encounter Care Teams Foreclosure Home Inspector Relationship Specialty Start Date End Date Charbel Calles RN [address] [place] [address] Registered Nurse Family Medicine 09/11/25 Conor Vidal 09/11/25 documented as of this encounter
--- OUTSIDE RECORDS SUMMARY | 2025-09-28 17:02 | XMS_ITS | Clinical Summary ---
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 09/16/2025 Results Follow-Up [facility] [address] [place] [address] External Provider, [facility] XR Chest 1 View 09/16/2025 Results Follow-Up [facility] [address] [place] [address] Provider, Generic External Data XR Chest 1 View 09/14/2025 Orders Only GENERIC EXTERNAL DATA DEPARTMENT Provider, Generic External Data 09/13/2025 Orders Only [facility] External Provider, [facility] 09/12/2025 Orders Only GENERIC EXTERNAL DATA DEPARTMENT Provider, Generic External Data 09/11/2025 Patient Outreach [facility] [address] [place], [place] [phone] Edith Zuniga, RN 09/11/2025 Patient Outreach [address] [address] Conor Vidal Care Coordination (C3/W Conor Vidal, Initial outreach call_lvm ) 09/11/2025 Patient Outreach [address] [address] Conor Vidal Care Coordination (C3/W Conor Vidal, Chart review ) 09/11/2025 Patient Outreach [facility] [address] [place], [place] [phone] Charbel Calles, RN Care Coordination (C3CM- chart review) 09/11/2025 Patient Outreach [facility] [address] [place] [address] [place] [address] Jodi Cerda, LAURA 09/08/2025 Results Follow-Up [facility] [address] [place] [address] External Provider, [facility] CTA Chest PE Protocal, XR Chest 1 View 09/06/2025 Orders Only [facility] External Provider, [facility] 09/03/2025 Results Follow-Up [facility] [address] [place] [address] Provider, Generic External Data XR Chest 2 Views 09/03/2025 Orders Only GENERIC EXTERNAL DATA DEPARTMENT Provider, Generic External Data 08/21/2025 Orders Only GENERIC EXTERNAL DATA DEPARTMENT Provider, Generic External Data 08/14/2025 Orders Only [facility] External Provider, 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 07/01/2025 Patient Outreach [address] [address] Missy Milner, LAURA Care Coordination ([facility]/Liz Vidal, TC #5 initial outreach attempt_lvm) from Last 3 Months Immunizations Immunization Administration Dates Next Due LIFX SARS-CoV-2 Vaccination 04/28/2021 Pfizer Covid-19 Vaccine 12+ [...] Diagnosis Comments XR CHEST 1 VIEW Routine 09/28/2025 4:28 AM EST TYPE AND SCREEN Routine 09/28/2025 12:13 AM EST CBC WITH AUTO DIFFERENTIAL Routine 09/28/2025 12:13 AM EST BASIC METABOLIC PANEL Routine 09/28/2025 12:13 AM EST HEPATIC FUNCTION PANEL Routine 12:13 AM EST URINALYSIS, COMPLETE, WITH REFLEX TO CULTURE Routine [...] Months Results * XR Chest 1 View (09/28/2025 4:28 AM EST) Only the most recent of8 resultswithin the time period is included. Anatomical Region Laterality Modality Chest Radiographic Lamar ging 09/28/2025 4:28 AM EST Narrative 09/28/2025 4:30 AM EST [place] [address] XRay Report Signed Patient: Charbel Delgado MR#: [id number] : 1970 Acct:[id number] Age/Sex: 55 / M ADM Date: 09/27/25 Loc: HO.ED Attending Dr: Ordering Physician: Alexandria Sweeney MD Date of Service: 09/28/25 Procedure(s): XR chest 1V Accession Number(s): [id number] cc: [facility]; Alexandria Sweeney MD Reason for Exam: hypoxic CLINICAL HISTORY: hypoxic 1 view chest x-ray Comparison: 09/13/2025 Findings: The lungs are clear. Normal size heart. No acute fracture. IMPRESSION: 1. No acute findings. This document has been electronically signed by: Chris Causey MD on 09/28/2025 04:28:54 Dictated By: Chris Causey MD Signed By: <Electronically signed by Chris Causey MD in OV> 09/28/25428 DD/ 7 TD/TT: 09/28/25427 Mail Distribution Clerk: Procedure Note Mackfrandyfernandomohamudter, Image - 09/28/2025 [place] [address] XRay Report Signed Patient: Isaias Delgado#: [id number] : 1970Acct:[id number] Age/Sex: 55 / MADM Date: 09/27/25 Loc: HO.ED Attending Dr: Ordering Physician: Alexandria Sweeney MD Date of Service: 09/28/25 Procedure(s): XR chest 1V Accession Number(s): [id number] cc: [facility]; Alexandria Sweeney MD Reason for Exam: hypoxic CLINICAL HISTORY: hypoxic 1 view chest x-ray Comparison: 09/13/2025 Findings: The lungs are clear. Normal size heart. No acute fracture. IMPRESSION: 1. No acute findings. This document has been electronically signed by: Chris Causey MD on 09/28/2025 04:28:54 Dictated By: Chris Causey MD Signed By: <Electronically signed by Chris Causey MD in OV> 09/28/25428 DD/ 7 TD/TT: 09/28/25427 Mail Distribution Clerk: [facility] External Provider IMG XR PROCEDURES Final Result * (ABNORMAL) CBC auto differential (09/28/2025 12:13 AM EST) Only the most recent of8 resultswithin the time period is included. White Blood Count 5.6 4.8 - 10.8 X10*3/uL [facility] Red Blood Count 3.53(L) 4.60 - 5.80 X10*6/uL [facility] Hemoglobin 10.5(L) 14.0 - 18.0 g/dl [facility] Hematocrit 32.1(L) 42.0 - 52.0 % [facility] Mean Corpuscular Volume 90.9 80.0 - 98.0 fL [facility] Mean Corpuscular Hemoglobin 29.7 27.0 - 33.0 pg [facility] Mean Corpuscular HGB Conc 32.7 31.0 - 36.0 g/dl [facility] Red Cell Distribution Width 16.2(H) 11.0 - 16.0 % [facility] Platelet Count 59(L) 160 - 400 X10*3/uL [facility] Mean Platelet Volume 11.8 9.4 - 12.4 fL [facility] Neutrophils Percent Auto 63.5 45 - 73 % [facility] Imm Gran Pct Auto 1.2(H) 0.0 - 0.4 % [facility] Lymphocytes Percent Auto 24.4 20 - 40 % [facility] Monocytes Percent Auto 7.0 2 - 11 % [facility] Eosinophils Percent Auto 2.1 0 - 4 % [facility] Basophils Percent Auto 1.8 0 - 2 % [facility] NRBC Pct Auto 0.0 0.0 - 0.2 /100WBC [facility] Neutrophils Absolute Auto 3.6 2.0 - 8.3 x10*3/uL [facility] Imm Gran Abs Auto 0.07(H) 0.00 - 0.03 X10*3/uL [facility] Lymphocytes Absolute Auto 1.4 1.2 - 4.9 X10*3/uL [facility] Monocytes Absolute Auto 0.4 0.1 - 1.2 X10*3/uL [facility] Eosinophils Absolute Auto 0.1 0.0 - 0.4 X10*3/uL [facility] Basophils Absolute Auto 0.1 0.0 - 0.2 X10*3/uL [facility] NRBC Abs Auto 0.000 0.0 - 0.012 X10*3/uL [facility] 09/28/2025 12:1 3 AM EST 09/28/2025 12:16 AM EST us Generic External Data Provider LAB BLOOD ORDERAB LES Final Result [facility] [address] [place] [phone] * Type and screen (09/28/2025 12:13 AM EST) Blood Type BP [facility] Antibody Screen NEGATIVE [facility] 09/28/2025 12:1 3 AM EST 09/28/2025 12:16 AM EST Generic External Data Provider LAB BLOOD BANK TE ST ORDERABLES Final Result Performing Organization Address [facility] Co de Phone Number [facility] [address] [place] [phone] * (ABNORMAL) Hepatic Function Panel (09/28/2025 12:13 AM EST) Only the most recent of2 resultswithin the time period is included. Bilirubin, Total 0.3 0.0 - 1.0 mg/dL [facility] Bilirubin, Direct 0.2 0.0 - 0.5 mg/dL [facility] Aspartate Amino Transferase 38(H) 5 - 37 U/L [facility] Alanine Aminotransferase 12 0 - 40 U/L [facility] Total Protein 7.8 6.5 - 8.0 g/dL [facility] Albumin Level 3.7 3.5 - 5.0 g/dL [facility] Alkaline Phosphatase 115 39 - 117 U/L [facility] 09/28/2025 12:1 3 AM EST 09/28/2025 12:16 AM EST Generic External Data Provider LAB BLOOD ORDERAB LES Final Result Performing Organization Address [facility] Co de Phone Number [facility] [address] [place] [address] [phone] * (ABNORMAL) Basic Metabolic Panel (09/28/2025 12:13 AM EST) Only the most recent of2 resultswithin the time period is included. Sodium 137 135 - 145 mmol/L [facility] Potassium 3.5 3.3 - 5.1 mmol/L [facility] Chloride 111(H) 96 - 108 mmol/L [facility] Carbon Dioxide 15(L) 22 - 29 mmol/L [facility] Anion Gap 15 12 - 20 [facility] Urea Nitrogen (BUN) 19(H) 9 - 16 mg/dL [facility] Creatinine, Serum 0.86 0.5 - 1.4 mg/dL [facility] Creatinine Clr Calc Pharmacy 85.0 [facility] Comment:eGFR (calculated fro m the MDRD study equation) and eCrCl(calculated from the Cockcroft-Gault equation) are based ondifferent parameters and may not yield comparable results.If eCrCl result is absurd, please check patient'sheight/weight. Estimated Glomerular Filt Rate >60 [facility] Comment:Chronic Kidney Disea se: Estimated GFR < 60 mL/min/1.72f9Wfleqn Kidney Disease: Estimated GFR < 15 mL/min/1.73m2 Glucose 102 60 - 115 mg/dL [facility] Calcium 8.6 8.4 - 10.2 mg/dL [facility] 09/28/2025 12:1 3 AM EST 09/28/2025 12:16 AM EST us Generic External Data Provider LAB BLOOD ORDERAB LES Final Result [facility] [address] [place] [phone] * (ABNORMAL) Urinalysis, Complete, with Reflex to Culture (09/14/2025 2:12 AM EST) Only the most recent of3 resultswithin the time period is included. Color Urine Yellow [facility] Appearance Urine Clear [facility] PH 5.5 5.0 - 9.0 [facility] Glucose Urine UA Negative Negative mg/dL [facility] Urine Blood Negative Negative [facility] Specific Cay[place] - Urine 1.010 1.005 - 1.025 [facility] Urine Protein Negative Neg-Trace mg/dL [facility] Urine Ketones Negative Negative mg/dL [facility] Nitrite Urine Negative Negative [facility] Leukocyte Esterase Urine Trace(A) Negative [facility] RBC Urine 0-2 0 - 2 /HPF [facility] Urine WBC 0-5 0 - 5 /HPF [facility] Urine Squamous Epithelial Cell 0-2 0 - 2 /HPF [facility] Urine Bacteria None Seen None Seen [facility] Hyaline Casts, Urine 0-2 0 - 2 /LPF [facility] 09/14/2025 2:12 AM EST 09/14/2025 2:16 AM EST Narrative [facility] - 09/14/2025 2:30 AM EST Urine, Clean Catch us Generic External Data Provider LAB URINE ORDERAB LES Final Result [facility] [address] [place] [address] [phone] * (ABNORMAL) Drug Monitoring, Panel 1, Screen, Urine (09/14/2025 2:12 AM EST) Only the most recent of3 resultswithin the time period is included. Opiate Screen Urine Not Detected Not Detect [facility] Comment:Opiate cut-off is 30 0 ng/mL.Positive results are unconfirmed and should not be used fornon-medical purposes. Barbiturates, Urine POSITIVE(A) Not Detect [facility] Comment:Barbiturate cut-off is 200 ng/mL.Positive results are unconfirmed and should not be used fornon-medical purposes. Phencyclidine Screen Urine Not Detected Not Detect [facility] Comment:Phencyclidine cut-of f is 25 ng/mL.Positive results are unconfirmed and should not be used fornon-medical purposes. Amphetamine Screen Urine Not Detected Not Detect [facility] Comment:Amphetamine cut-off is 1000 ng/mL.Positive results are unconfirmed and should not be used fornon-medical purposes. Benzodiazepines Screen Urine Not Detected Not Detect [facility] Comment:Benzodiazepine cut-o ff is 200 ng/mL.Positive results are unconfirmed and should not be used fornon-medical purposes. Cocaine Screen Urine Not Detected Not Detect [facility] Comment:Cocaine cut-off is 3 00 ng/mL.Positive results are unconfirmed and should not be used fornon-medical purposes. Cannabinoid Screen Urine Not Detected Not Detect [facility] Comment:Cannabinoid cut-off is 50 ng/mL.Positive results are unconfirmed and should not be used fornon-medical purposes. Methadone Screen, Urine Not Detected Not Detect ng/mL [facility] Comment:Methadone cut-off is 300 ng/mL.Positive results are unconfirmed and should not be used fornon-medical purposes. FENTANYL URINE Not Detected Not Detect [facility] Comment:Fentanyl cut-off is 1 ng/mL.Positive results are unconfirmed and should not be used fornon-medical purposes. Oxycodone Urine Screen Not Detected Not Detect ng/mL [facility] Comment:Oxycodone cut-off is 100 ng/mL.Positive results are unconfirmed and should not be used fornon-medical purposes. Buprenorphine Screen Not Detected Not Detect ng/mL [facility] Comment:Buprenorphine cut-of f is 5 ng/mL.Positive results are unconfirmed and should not be used fornon-medical purposes. 09/14/2025 2:12 AM EST 09/14/2025 2:16 AM EST us Generic External Data Provider LAB URINE ORDERAB LES Final Result [facility] [address] [place] [address] [phone] * Lactic Acid (09/14/2025 1:01 AM EDT) Only the most recent of4 resultswithin the time period is included. Lactic Acid 2.0 0.5 - 2.0 mmol/L [facility] 09/14/2025 1:01 AM EDT 09/14/2025 1:04 AM EDT Generic External Data Provider LAB BLOOD ORDERAB LES Final Result Performing Organization Address [facility] Co de Phone Number [facility] [address] [place] [phone] * Blood Culture (First) (09/13/2025 10:41 PM EDT) Only the most recent of2 resultswithin the time period is included. Blood Venous blood specimen / Unknown 09/13/2025 10:41 PM EDT 09/13/2025 10:51 PM EDT Comment:Blood Narrative [facility] - 09/19/2025 12:51 AM EST Blood Culture (First) No growth after 5 days. Specimen Source: Blood Generic External Data Provider LAB MICROBIOLOGY - GENERAL ORDERABLES Final Result Performing Organization Address [facility] de Phone Number [facility] [address] [place] [phone] * Blood Culture (Second) (09/13/2025 10:41 PM EDT) Only the most recent of2 resultswithin the time period is included. Blood Venous blood specimen / Unknown 09/13/2025 10:41 PM EDT 09/13/2025 10:54 PM EDT Comment:Blood Narrative [facility] - 09/19/2025 12:54 AM EST Blood Culture (Second) No growth after 5 days. Specimen Source: Blood Generic External Data Provider LAB MICROBIOLOGY - GENERAL ORDERABLES Final Result Performing Organization Address [facility] Co de Phone Number [facility] [address] [place] [phone] * High Sensitivity Troponin I (09/13/2025 10:41 PM EDT) Only the most recent of5 resultswithin the time period is included. TROPONIN I HIGH SENSITIVITY <2.7 <3.5 - 35.0 ng/L [facility] Comment:The Yarbrough high sens itivity Troponin-I results should beused in conjunction with other diagnostic information suchas ECG, clinical observations and information, and patientsymptoms to aid in the diagnosis of MA. 09/13/2025 10:4 1 PM EDT 09/13/2025 10:51 PM EDT Generic External Data Provider LAB BLOOD ORDERAB LES Final Result Performing Organization Address [facility] Co de Phone Number [facility] [address] [place] [phone] * Ethanol (09/13/2025 10:41 PM EDT) Only the most recent of6 resultswithin the time period is included. ETHANOL (MG/DL) IN SER/PLAS 269 mg/dL [facility] Comment:Serum/plasma ethanol results are to be used formedical/treatment purposes only. 09/13/2025 10:4 1 PM EDT 09/13/2025 10:51 PM EDT Generic External Data Provider LAB BLOOD ORDERAB LES Final Result Performing Organization Address [facility] de Phone Number [facility] [address] [place] [phone] * SARS-CoV-2 RNA, Influenza A/B, and RSV RNA, Ql NAAT (09/13/2025 10:41 PM EDT) Influenza A PCR NEGATIVE Negative [facility] Influenza B PCR NEGATIVE Negative [facility] Resp Syncy Virus RNA Qual PCR NEGATIVE Negative [facility] SARS COV2 PCR NEGATIVE Negative [facility] Comment:All test results mus t be [...] use by authorized laboratories.Testing performed on the [employer] GeneXpert utilizingreal-time RT-PCR.All SARS CoV2 and positive influenza A/B results arereported to [facility]. 09/13/2025 10:4 1 PM EDT 09/13/2025 10:51 PM EDT Generic External Data Provider LAB MICROBIOLOGY - GENERAL ORDERABLES Final Result Performing Organization Address [facility] Co de Phone Number [facility] [address] [place] [phone] * NT-proBNP (09/13/2025 10:41 PM EDT) Only the most recent of5 resultswithin the time period is included. NT-proBNP 174.0 <300 pg/mL [facility] Comment:Reference Range:Age Group (years) NT-proBNP (pg/ml) InterpretationAll <300 Negative: HF unlikelyFor patients presenting to the ED with clinical suspicion ofnew onset or worsening HF, see below:18 to <50 >299.9 to <450.0 Grayzone: [id number] to 75 >299.9 to <900.0 other causes of>75 >299.9 to <1800.0 NT-proBNP [id number] to <50 >449.9 Positive: HF -04 >899.9>75 >1799.9Note: Elevated NT-proBNP levels should be interpreted inthe context of other clinical information. 09/13/2025 10:4 1 PM EDT 09/13/2025 10:51 PM EDT Generic External Data Provider LAB BLOOD ORDERAB LES Final Result Performing Organization Address [facility]/ZIP Co de Phone Number [facility] [address] [place] [phone] * Magnesium (09/13/2025 10:41 PM EDT) Only the most recent of3 resultswithin the time period is included. Magnesium 1.7 1.6 - 2.6 mg/dL [facility] 09/13/2025 10:4 1 PM EDT 09/13/2025 10:51 PM EDT Generic External Data Provider LAB BLOOD ORDERAB LES Final Result Performing Organization Address [facility] de Phone Number [facility] [address] [place] [phone] * (ABNORMAL) Lactic Acid (09/13/2025 10:41 PM EDT) Only the most recent of3 resultswithin the time period is included. Lactic Acid 2.1(HH) 0.5 - 2.0 mmol/L [facility] Comment:Critical value for t est(s): LACTA Results called to gildardo back by:NATAN Person calling: DEVENDRA Date: 09/13/25Time: 2311 09/13/2025 10:4 1 PM EDT 09/13/2025 10:51 PM EDT Generic External Data Provider LAB BLOOD ORDERAB LES Final Result Performing Organization Address [facility] Phone Number [facility] [address] [place] [phone] * Culture, Urine, Routine (09/12/2025 10:15 PM EDT) Urine Urine specimen obtained by clean catch procedure / Unknown 09/12/2025 10:15 PM EDT 09/12/2025 10:15 PM EDT Comment:[facility] Narrative [facility] - 09/15/2025 7:48 AM EST Enterococcus faecalis Quant 10,000 to 50,000 cfu/mL Enterococcus faecalis: Ampicillin <=2(S) Enterococcus faecalis: Levofloxacin >=8(R) Enterococcus faecalis: Nitrofurantoin 32(S) Enterococcus faecalis: Tetracycline >=16(R) Enterococcus faecalis: Vancomycin 2(S) Specimen Source: Urine clean catch us Generic External Data Provider LAB MICROBIOLOGY - GENERAL ORDERABLES Final Result [facility] [address] [place] [phone] [phone] * (ABNORMAL) Comprehensive Metabolic Panel (09/12/2025 9:19 PM EDT) Only the most recent of6 resultswithin the time period is included. Sodium 140 135 - 145 mmol/L [facility] Potassium 3.8 3.3 - 5.1 mmol/L [facility] Chloride 111(H) 96 - 108 mmol/L [facility] Carbon Dioxide 18(L) 22 - 29 mmol/L [facility] Anion Gap 15 12 - 20 [facility] Urea Nitrogen (BUN) 18(H) 9 - 16 mg/dL [facility] Creatinine, Serum 0.99 0.5 - 1.4 mg/dL [facility] Creatinine Clr Calc Pharmacy 74.4 [facility] Comment:eGFR (calculated fro m the MDRD study equation) and eCrCl(calculated from the Cockcroft-Gault equation) are based ondifferent parameters and may not yield comparable results.If eCrCl result is absurd, please check patient'sheight/weight. Estimated Glomerular Filt Rate >60 [facility] Comment:Chronic Kidney Disea se: Estimated GFR < 60 mL/min/1.92w4Swjapk Kidney Disease: Estimated GFR < 15 mL/min/1.73m2 Glucose 89 60 - 115 mg/dL [facility] Calcium 8.2(L) 8.4 - 10.2 mg/dL [facility] Bilirubin, Total 0.3 0.0 - 1.0 mg/dL [facility] Aspartate Amino Transferase 45(H) 5 - 37 U/L [facility] Alanine Aminotransferase 11 0 - 40 U/L [facility] Total Protein 8.0 6.5 - 8.0 g/dL [facility] Albumin Level 3.5 3.5 - 5.0 g/dL [facility] Alkaline Phosphatase 134(H) 39 - 117 U/L [facility] 09/12/2025 9:19 PM EDT 09/12/2025 9:23 PM EDT us Generic External Data Provider LAB BLOOD ORDERAB LES Final Result Performing Organization Address City/State/[facility] Co de Phone Number [facility] [address] [place] [phone] * CTA Chest PE Protocal (09/06/2025 12:04 PM EDT) Anatomical Region Laterality Modality Body, Chest Computed Tomogra phy 09/06/2025 12:0 4 PM EDT Narrative 09/06/2025 12:06 PM EDT [address] [address] [address] Scan Report Signed Patient: Charbel Delgado MR#: [id number] : 1970 Acct:[id number] Age/Sex: 55 / M ADM Date: 09/06/25 Loc: HO.ED Attending Dr: Ordering Physician: Abril Sam Date of Service: 09/06/25 Procedure(s): CT angio chest PE protocol Accession Number(s): [id number] cc: Abril Sam; [facility] Report Number: [id number]: Total DLP = 188.00 mGy-cm Reason for [...] 09/06/25 1205 DD/ 1204 TD/TT: 09/06/25 1204 Mail Distribution Clerk: Procedure Note Donotuseinterpreter, Image - 09/06/[address] [place] [address] [address] Scan Report Signed Patient: Isaias Delgado#: [id number] : 1970Acct:[id number] Age/Sex: 55 / MADM Date: 09/06/25 Loc: HO.ED Attending Dr: Ordering Physician: Abril Sam Date of Service: 09/06/25 Procedure(s): CT angio chest PE protocol Accession Number(s): [id number] cc: Abril Sam; [facility] Report Number: [id number]: Total DLP = 188.00 mGy-cm Reason for [...] 09/06/25 1205 DD/ 1204 TD/TT: 09/06/25 1204 Mail Distribution Clerk: [facility] External Provider IMG CT PROCEDURES Edited Result - Final * (ABNORMAL) Sed Rate by Modified Mariahren (09/06/2025 8:50 AM EDT) Erythrocyte Sedimentation Rate 46(H) 0 - 15 MM/HR [facility] Comment:Patients with polycy themia and many hemoglobin abnormalitiesmay have depressed sed rates whereas patients with anemiamay have elevated sed rates. 09/06/2025 8:50 AM EDT 09/06/2025 8:54 AM EDT Generic External Data Provider LAB BLOOD ORDERAB LES Final Result Performing Organization Address [facility] Co de Phone Number [facility] [address] [place] [phone] * (ABNORMAL) C-reactive Protein (09/06/2025 8:50 AM EDT) Only the most recent of2 resultswithin the time period is included. Pathologist [facility] C Reactive Protein 0.57(H) < or = 0.50 mg/dL [facility] 09/06/2025 8:50 AM EDT 09/06/2025 8:54 AM EDT Generic External Data Provider LAB BLOOD ORDERAB LES Final Result Performing Organization Address [facility] Co de Phone Number [facility] [address] [place] [phone] * (ABNORMAL) VENOUS BLOOD GAS (09/06/2025 8:48 AM EDT) Pathologist [facility] VBG pH 7.43 7.32 - 7.43 [facility] Comment:METER #: [id number] additional_comment: Cb gentilj VBG PCO2 29 mmHg [facility] Comment:METER #: [id number] additional_comment: Junior orta VBG PO2 71 mmHg [facility] Comment:METER #: [id number] additional_comment: Junior CAALG Base Excess -3.3 mmol/L [facility] Comment:METER #: [id number] additional_comment: Junior CAALG HCO3 20(L) 22 - 26 mmol/L [facility] Comment:METER #: [id number] additional_comment: Junior orta O2 Sat, Demetrio 92.0 % [facility] Comment:METER #: [id number] additional_comment: Junior orta 09/06/2025 8:48 AM EDT 09/06/2025 8:51 AM EDT us Generic External Data Provider LAB BLOOD ORDERAB LES Final Result Performing Organization Address City/State/[facility] Co de Phone Number [facility] [address] [place] [phone] * Influenza A B2 ID NOW ([employer]) (09/06/2025 8:42 AM EDT) IDBEBEW SERIAL# [id number] [facility] Influenza A Negative Negative [facility] Influenza B2 Negative Negative [facility] Influenza A B2 Note See Note [facility] Comment:The Yarbrough ID NOW In [...] GENERAL ORDERABLES Final Result Performing Organization Address City/[facility]/ZIP Co de Phone Number [facility] [address] [place] [phone] [phone] * COVID-19 ID NOW (YARBROUGH) (09/06/2025 8:42 AM EDT) IDNOW SERIAL# [id number] [facility] COVID-19 TEST Negative Negative [facility] COVID-19 NOTE See Note [facility] Comment: Results are for the identification of SARS-CoV2 RNA. TheSARS-CoV2 RNA is generally detectable in respiratory samplesduring the acute phase of infection. Positive results areindicative of the presence of SARS-CoV-2 RNA; clinicalcorrelation with patient history and other diagnosticinformation is necessary to determine patient infectionstatus. Positive results do not rule out bacterial infectionor co- infection with other viruses.Testing facilities within the [facility] and itsterritories are required to report all [...] GNOSTICS ORDERABLES Final Result Performing Organization Address City/[facility]/ZIP Co de Phone Number [facility] [address] [place] [phone] * Slide Review (09/06/2025 12:46 AM EDT) Only the most recent of3 resultswithin the time period is included. Slide Review VERIFIED [facility] 09/06/2025 12:4 6 AM EDT 09/06/2025 12:51 AM EDT us Generic External Data Provider LAB BLOOD ORDERAB LES Final Result Performing Organization Address City/[facility]/ZIP Co de Phone Number [facility] [address] [place] [phone] * HOLD LT BLUE - POSSIBLE COAG (09/06/2025 12:46 AM EDT) Only the most recent of2 resultswithin the time period is included. Hold Lt Blue - Possible Coag SEE NOTE [facility] Comment:Specimen will be hel d untested for 4 hours. Call Hematologyif testing is desired. 09/06/2025 12:4 6 AM EDT 09/06/2025 12:54 AM EDT us Generic External Data Provider LAB BLOOD ORDERAB LES Final Result Performing Organization Address City/[facility] Co de Phone Number [facility] [address] [place] [phone] * XR Chest 2 Views (09/03/2025 12:15 PM EDT) Anatomical Region Laterality Modality Chest Radiographic Lamar ging 09/03/2025 12:1 5 PM EDT Narrative 09/03/2025 12:34 PM EDT [address] [address] XRay Report Signed Patient: Charbel Delgado MR#: [id number] : 1970 Acct:[id number] Age/Sex: 55 / M ADM Date: 09/03/25 Loc: HO.ED Attending Dr: Ordering Physician: Johanna Liao Date of Service: 09/03/25 Procedure(s): XR chest 2V Accession Number(s): [id number] cc: [facility]; Johanna Liao Reason for Exam: hypoxic [...] 09/03/25 1231 DD/ 1215 TD/TT: 09/03/25 1225 Mail Distribution Clerk: Procedure Note Donotuseinterpreter, Image - 09/03/2025 [place] [address] XRay Report Signed Patient: Isaias Delgado#: [id number] : 1970Acct:[id number] Age/Sex: 55 / MADM Date: 09/03/25 Loc: HO.ED Attending Dr: Ordering Physician: Johanna Liao Date of Service: 09/03/25 Procedure(s): XR chest 2V Accession Number(s): [id number] cc: [facility]; Johanna Liao Reason for Exam: hypoxic [...] 09/03/25 1231 DD/ 1215 TD/TT: 09/03/25 1225 Mail Distribution Clerk: [facility] External Provider IMG XR PROCEDURES Final Result * Hold Lavender - Possible Hematology (09/03/2025 11:54 AM EDT) [facility] Possible Hematololgy SEE NOTE [facility] Comment:Specimen will be hel d untested for 8 hours. Call Hematologyif testing is desired. 09/03/2025 11:5 4 AM EDT 09/03/2025 12:02 PM EDT Generic External Data Provider HISTORICAL/NON OR DERABLE LABS Final Result Performing Organization Address [facility]/ZIP Co de Phone Number [facility] [address] [place] [phone] * Lipase (09/03/2025 11:54 AM EDT) Only the most recent of2 resultswithin the time period is included. Lipase 25 8 - 78 U/L [facility] 09/03/2025 11:5 4 AM EDT 09/03/2025 12:03 PM EDT Generic External Data Provider LAB BLOOD ORDERAB LES Final Result Performing Organization Address [facility]/ZIP Co de Phone Number [facility] [address] [place] [phone] * Urinalysis w/reflex microscopic (08/21/2025 11:09 PM EDT) Color Urine Dark Yellow [facility] Appearance Urine Clear [facility] PH 5.0 5.0 - 9.0 [facility] Glucose Urine UA Negative Negative mg/dL [facility] Urine Blood Negative Negative [facility] Specific Cayce - Urine 1.015 1.005 - 1.025 [facility] Urine Protein Negative Neg-Trace mg/dL [facility] Urine Ketones Negative Negative mg/dL [facility] Nitrite Urine Negative Negative [facility] Leukocyte Esterase Urine Negative Negative [facility] 08/21/2025 11:0 9 PM EDT 08/21/2025 11:13 PM EDT Narrative [facility] - 08/21/2025 11:16 PM EDT [id number], Clean Catch us Generic External Data Provider LAB URINE ORDERAB LES Final Result [facility] [address] [place] [address] [phone] * (ABNORMAL) Lipid Panel, Standard (08/21/2025 8:16 PM EDT) Triglycerides 62 <150 mg/dL [facility] Comment:Desirable Triglyceri de: less than 150 mg/dLBorderline High Triglyceride 150-199 mg/dLHigh Triglyceride: 200-499 mg/dLVery High Triglyceride: greater than or equal to 5OO mg/dL Cholesterol 118 <200 mg/dL [facility] Comment:Desirable Cholestero l: less than 200 mg/dLBorderline High Cholesterol: 200-239 mg/dLHigh Cholesterol: greater than 239 mg/dL LDL Cholesterol Calculated 77 <100 mg/dL [facility] Comment:Desirable LDL: less than 100 mg/dLNear Optimal/Above Optimal LDL: 110- 129 mg/dLBorderline High LDL: 130-159 mg/dLHigh LDL: 160-189 mg/dLVery High LDL: greater than or equal to 190 mg/dL HDL Cholesterol 29(L) >40 mg/dL [facility] Comment:Desirable HDL: great er than 40 mg/dL Note: This HDL assay may give artificially low results in patients with liver disease. 08/21/2025 8:16 PM EDT 08/21/2025 8:22 PM EDT us Generic External Data Provider LAB BLOOD ORDERAB LES Final Result Performing Organization Address City/State/[facility] Co de Phone Number [facility] [address] [place] [phone] * XR Foot 3+ Views Right (08/15/2025 8:10 AM EDT) Anatomical Region Laterality Modality Lower Extremities, Foot Right Radiogra phic Imaging 08/15/2025 8:10 AM EDT Narrative 08/15/2025 8:34 AM EDT [address] [address] XRay Report Signed Patient: Charbel Delgado MR#: [id number] : 1970 Acct:[id number] Age/Sex: 55 / M ADM Date: 08/15/25 [facility] Attending Dr: Yazmin WALLACE Ordering Physician: Yazmin Shafer Date of Service: 08/15/25 Procedure(s): XR foot RT min 3V Accession Number(s): [id number] cc: Yazmin Shafer; [facility] Reason for Exam: right foot pain [...] in OV> 08/15/25830 DD/ 9 TD/TT: 08/15/25819 Mail Distribution Clerk: Procedure Note Donotuseinterpreter, Image - 08/15/2025 [place] [address] XRay Report Signed Patient: Isaias Delgado#: [id number] : 1970Acct:[id number] Age/Sex: 55 / MADM Date: 08/15/25 Loc: [facility]: Yazmin WALLACE Ordering Physician: Yazmin Shafer Date of Service: 08/15/25 Procedure(s): XR foot RT min 3V Accession Number(s): [id number] cc: Yazmin Shafer; [facility] Reason for Exam: right foot pain [...] in OV> 08/15/25830 DD/ 9 TD/TT: 08/15/25819 Mail Distribution Clerk: [facility] External Provider IMG XR PROCEDURES Final Result * B Type Natriuretic Peptide (BNP) (07/06/2025 5:58 PM EDT) B Type Natriuretic Peptide 100 <100 pg/mL [facility] 07/06/2025 5:58 PM EDT 07/06/2025 6:06 PM EDT Generic External Data Provider LAB BLOOD ORDERAB LES Final Result [facility] [address] [place] [phone] from Last 3 Months Insurance [facility] [place] [address] [place] [address] Care Teams Rail Setter Relationship Specialty Start Date End Date Charbel Calles RN [address] [place] [address] [place] [address] Registered Nurse Family Medicine 09/11/25 Conor Vidal 09/11/25
--- OUTSIDE RECORDS SUMMARY | 2025-09-28 17:02 | XMS_ITS | Encounter Summary ---
Author Organization [facility] Address [address] [place] [address] 7 [place] [address] Care Team Providers Care Parts Counterperson Name Role Phone Charbel Calles RN Unavailable [phone] Conor Vidal Unavailable Encounter Details Date Type Department Care Team (Late st Contact Info) Description 09/28/2025 Orders Only GENERIC EXTERNAL DATA [...] Procedure Name Priority Date/Time Associated Diagnosis Comments CBC WITH AUTO DIFFERENTIAL Routine 09/28/2025 12:13 AM EST TYPE AND SCREEN Routine 09/28/2025 12:13 AM EST HEPATIC FUNCTION PANEL Routine 09/28/2025 12:13 AM EST BASIC METABOLIC PANEL Routine 09/28/2025 12:13 AM EST documented in this encounter Results * Type and screen (09/28/2025 12:13 AM EST) Blood Type BP [facility] Antibody Screen NEGATIVE [facility] 09/28/2025 12:1 3 AM EST 09/28/2025 12:16 AM EST us Generic External Data Provider LAB BLOOD BANK TE ST ORDERABLES Final Result [facility] [address] [place] [phone] * (ABNORMAL) CBC auto differential (09/28/2025 12:13 AM EST) White Blood Count 5.6 4.8 - 10.8 X10*3/uL [facility] Red Blood Count 3.53(L) 4.60 - 5.80 X10*6/uL [facility] Hemoglobin 10.5(L) 14.0 - 18.0 g/dl [facility] Hematocrit 32.1(L) 42.0 - 52.0 % [facility] Mean Corpuscular Volume 90.9 80.0 - 98.0 fL [facility] Mean Corpuscular Hemoglobin 29.7 27.0 - 33.0 pg [facility] Mean Corpuscular HGB Conc 32.7 31.0 - 36.0 g/dl [facility] Red Cell Distribution Width 16.2(H) 11.0 - 16.0 % [facility] Platelet Count 59(L) 160 - 400 X10*3/uL [facility] Mean Platelet Volume 11.8 9.4 - 12.4 fL [facility] Neutrophils Percent Auto 63.5 45 - 73 % [facility] Imm Gran Pct Auto 1.2(H) 0.0 - 0.4 % [facility] Lymphocytes Percent Auto 24.4 20 - 40 % [facility] Monocytes Percent Auto 7.0 2 - 11 % [facility] Eosinophils Percent Auto 2.1 0 - 4 % [facility] Basophils Percent Auto 1.8 0 - 2 % [facility] NRBC Pct Auto 0.0 0.0 - 0.2 /100WBC [facility] Neutrophils Absolute Auto 3.6 2.0 - 8.3 x10*3/uL [facility] Imm Gran Abs Auto 0.07(H) 0.00 - 0.03 X10*3/uL [facility] Lymphocytes Absolute Auto 1.4 1.2 - 4.9 X10*3/uL [facility] Monocytes Absolute Auto 0.4 0.1 - 1.2 X10*3/uL [facility] Eosinophils Absolute Auto 0.1 0.0 - 0.4 X10*3/uL [facility] Basophils Absolute Auto 0.1 0.0 - 0.2 X10*3/uL [facility] NRBC Abs Auto 0.000 0.0 - 0.012 X10*3/uL [facility] 09/28/2025 12:1 3 AM EST 09/28/2025 12:16 AM EST us Generic External Data Provider LAB BLOOD ORDERAB LES Final Result [facility] [address] [place] [phone] * (ABNORMAL) Basic Metabolic Panel (09/28/2025 12:13 AM EST) Sodium 137 135 - 145 mmol/L [facility] Potassium 3.5 3.3 - 5.1 mmol/L [facility] Chloride 111(H) 96 - 108 mmol/L [facility] Carbon Dioxide 15(L) 22 - 29 mmol/L [facility] Anion Gap 15 12 - 20 [facility] Urea Nitrogen (BUN) 19(H) 9 - 16 mg/dL [facility] Creatinine, Serum 0.86 0.5 - 1.4 mg/dL [facility] Creatinine Clr Calc Pharmacy 85.0 [facility] Comment:eGFR (calculated fro m the MDRD study equation) and eCrCl(calculated from the Cockcroft-Gault equation) are based ondifferent parameters and may not yield comparable results.If eCrCl result is absurd, please check patient'sheight/weight. Estimated Glomerular Filt Rate >60 [facility] Comment:Chronic Kidney Disea se: Estimated GFR < 60 mL/min/[id number] Kidney Disease: Estimated GFR < 15 mL/min/1.73m2 Glucose 102 60 - 115 mg/dL [facility] Calcium 8.6 8.4 - 10.2 mg/dL [facility] 09/28/2025 12:1 3 AM EST 09/28/2025 12:16 AM EST us Generic External Data Provider LAB BLOOD ORDERAB LES Final Result Performing Organization Address City/[facility] Co de Phone Number [facility] [address] [place] [phone] * (ABNORMAL) Hepatic Function Panel (09/28/2025 12:13 AM EST) Bilirubin, Total 0.3 0.0 - 1.0 mg/dL [facility] Bilirubin, Direct 0.2 0.0 - 0.5 mg/dL [facility] Aspartate Amino Transferase 38(H) 5 - 37 U/L [facility] Alanine Aminotransferase 12 0 - 40 U/L [facility] Total Protein 7.8 6.5 - 8.0 g/dL [facility] Albumin Level 3.7 3.5 - 5.0 g/dL [facility] Alkaline Phosphatase 115 39 - 117 U/L [facility] 09/28/2025 12:1 3 AM EST 09/28/2025 12:16 AM EST us Generic External Data Provider LAB BLOOD ORDERAB LES Final Result Performing Organization Address City/[facility] Co de Phone Number [facility] [address] [place] [phone] documented in this encounter Visit Diagnoses Not on filedocumented in this encounter Care Teams Parts Counterperson Relationship Specialty Start Date End Date Charbel Calles RN [address] [place] [phone] Registered Nurse Family Medicine 09/11/25 Conor Vidal 09/11/25 documented as of this encounter
--- OUTSIDE RECORDS SUMMARY | 2025-09-28 17:02 | XMS_ITS | Encounter Summary ---
Author Organization [facility] Address [address] [place] [address] 7 [place] [address] Care Team Providers Care Slide Forming Machine Operator Name Role Phone Charbel Calles RN Unavailable [phone] Conor Vidal Unavailable Encounter Details Date Type Department Care Team (Late st Contact Info) Description 09/27/2025 Orders Only [facility] External Provider, [facility] Social History Tobacco Use Types Packs/Day [...] 1 VIEW Routine 09/28/2025 4:28 AM EST documented in this encounter Results * XR Chest 1 View (09/28/2025 4:28 AM EST) Anatomical Region Laterality Modality Chest Radiographic Lamar ging 09/28/2025 4:28 AM EST Narrative 09/28/2025 4:30 AM EST [address] [address] XRay Report Signed Patient: Charbel Delgado MR#: [id number] : 1970 Acct:[id number] Age/Sex: 55 / M ADM Date: 09/27/25 Loc: .ED Attending Dr: Ordering Physician: Alexandria Sweeney MD Date of Service: 09/28/25 Procedure(s): XR chest 1V Accession Number(s): [id number] cc: [facility]; Alexandria Sweeney MD Reason for Exam: hypoxic [...] in OV> 09/28/25428 DD/ 7 TD/TT: 09/28/25427 [employer] Shift Superintendent: Procedure Note Donotuseinterpreter, Image - 09/28/[address] [address] XRay Report Signed Patient: Isaias Delgado#: [id number] : 1970Acct:[id number] Age/Sex: 55 / MADM Date: 09/27/25 Loc: .ED Attending Dr: Ordering Physician: Alexandria Sweeney MD Date of Service: 09/28/25 Procedure(s): XR chest 1V Accession Number(s): [id number] cc: [facility]; Alexandria Sweeney MD Reason for Exam: hypoxic [...] in OV> 09/28/25428 DD/ 7 TD/TT: 09/28/25427 [employer] Shift Superintendent: [facility] External Provider IMG XR PROCEDURES Final Result documented in this encounter Visit Diagnoses Not on filedocumented in this encounter Care Teams Slide Forming Machine Operator Relationship Specialty Start Date End Date Charbel Calles RN [address] [place] [phone] Registered Nurse Family Medicine 09/11/25 Conor Vidal 09/11/25 documented as of this encounter
--- OUTSIDE RECORDS SUMMARY | 2025-09-28 17:02 | XMS_ITS ---
Author Organization [employer] Address [address] [place] [address] [address] [place] [address] Care Team Providers Care Hide Stretcher Hand Name Role Phone Charbel Calles RN Unavailable [phone] Conor Vidal Unavailable CM Complex Status:Outreach In Progress (Enrolling) Start date:09/11/2025 Enrollment reason:ADT Feed Overview ED- Pt went to [facility] ED on 09/10/25. Case Team Name Relationship Phone Charbel Calles RN(Responsible Staff) Registered [facility] [phone] Continued Care and Services Coordination
--- NOTE | 2025-09-28 18:09 | PC.NURSE ---
Belongings in [place] shelf 2. Safety search done by security. Pt changed over out of wet clothing. RA sat 85%, improved to 94% on 2L NC O2. No SI or HI, +ETOH. Resting on stretcher, no apparent distress, calm and cooperative
--- NOTE | 2025-09-28 20:02 | ED_ITS ---
[facility] - General Adult General Chief complaint: ETOH/Substance Use Stated complaint: ETOH no complaints Time Seen by Provider: 09/28/25 20:02 Source: patient Mode of arrival: ambulatory Limitations: no limitations History of Present Illness ED Provider: Dr. Medley [facility] narrative: This is a 55-year-old male history of alcohol abuse, chronic respiratory failure presented hospital today for evaluation of intoxication. Patient was found in the street wandering. he denies any pain anywhere denies falling. Related Data Home Medications ?Medication ?Instructions ?Recorded ?Confirmed No Known Home Meds 09/30/25 09/30/25 Allergies Allergy/AdvReac Type Severity Reaction Status Date / Time No Known Allergies (No Known Allergy Verified 10/01/25 17:27 Allergies*) Review of Systems Review of Systems: Pertinent review of systems as mentioned in [facility]. All other system otherwise negative. COUNTS INCLUDE 234 BEDS AT THE [facility] Past Medical History COUNTS INCLUDE 234 BEDS AT THE [facility] Narrative: Medical history as mentioned in [facility] Medical History Hemorrhoids, internal, with bleeding Rectal bleeding Pancytopenia Alcohol withdrawal Alcohol use disorder, severe, dependence Pancytopenia Cirrhosis Hypomagnesemia Aspiration pneumonia Alcohol use disorder CHF (congestive heart failure) Alcohol abuse Acute hypoxemic respiratory failure Anemia Pneumonia Alcohol withdrawal syndrome Alcohol abuse Thrombocytopenia Esophageal varices Acute on chronic anemia Alcoholic liver disease Thrombocytopenia Malnutrition CHF (congestive heart failure) Anemia Thrombocytopenia Acute on chronic anemia CHF (congestive heart failure) Anemia Alcohol abuse Surgical History No history of previous surgery Social History Social History Household Members: None Household Members Other:: homeless Housing: Homeless Housing Other:: homeless Do you presently have visiting nurse or other home services: No Alcohol intake: current Alcohol intake frequency: 3 or more drinks per day Alcohol type: beer and hard liquor Comment: pt refuse to have staff remain in BR Patient Tobacco Use Status: Former Tobacco user Tobacco use type: Cigarette Second Hand Smoke Exposure: No Advance Directives: Yes Advance Directives on File: Yes Advance Directives Date on File: 07/13/23 Do you have a plan to hurt others: No Plan service: No Physical Exam ED Exam Exam: General: appears intoxicated Head: Normacephalic, atraumatic ENT: oral mucosa moist, neck supple, no tracheal deviation Cardiovascular: regular rate, regular rhythm, no murmurs, rubbing, gallops Respiratory: CTAB, no wheeze, rales, rhonchi Gastrointestinal: Soft, non distended, non tender, non guarding Neurological: Appears intoxicated Skin: Warm and dry Psychiatric: appears intoxicated Vital Signs: Vital Signs - 24 hr 09/28/25 16:34 09/28/25 16:52 09/28/25 20:28 Temperature 97.5 F 98.1 F Pulse Rate 67 70 Respiratory Rate 18 Blood Pressure 121/66 101/50 L Pulse Oximetry 85 L 94 96 Oxygen Delivery Method Room Air Nasal Cannula Nasal Cannula Oxygen Flow Rate 2 2 09/29/25 05:56 Temperature Pulse Rate 77 Respiratory Rate 18 Blood Pressure 92/53 L Pulse Oximetry 93 Oxygen Delivery Method Nasal Cannula Oxygen Flow Rate 2 BMI result Body Mass Index 21.3 Medical Decision Making Medical Decision Making MDM Narrative: 55-year-old male presented hospital today for alcohol intoxication. Patient does have known chronic respiratory failure. However noncompliant with the nasal cannula or oxygen usage. We will allow the patient to metabolize at this time. No signs of head trauma on exam. Upon re-evaluation the patient still appears to be intoxicated. We will plan to allow the patient to metabolize. patient will be signed out to oncoming provider pending metabolization. 7:32 AM 09/29/2025 (Dr. Beck Greer): I, Dr. Greer have take over the care of this patient, in the emergency department yesterday, with the same intoxication, when he sleeps low oxygen levels, chronic left ankle pain, no new trauma, no new issues reported anticipate discharge when clinically sober Differential Diagnosis Differential Diagnoses: The differential diagnosis associated with the presentation includes Closed head injury, intoxication Discharge Plan Discharge Clinical Impression: Alcohol intoxication Patient Disposition: Home, Self-Care Additional Instructions: Alcohol use disorder You were seen in the Emergency Department today for treatment of alcohol use disorder.? You may have been given medications to help with your withdrawal symptoms.? Please do not drink alcohol with them. This is very dangerous and can cause respiratory depression or other adverse reactions depending on the medication. If you would like to cut down or stop your alcohol use please consider calling our outpatient Addiction Treatment office:? [facility] (M-F 9a-5p) [address] [place] [address] You have also been given a list of treatment providers in the area that can assist as well.? If you experience seizures, vomiting blood, black stools, falls, severe headache, chest pain, fevers, trouble breathing, hallucinations or any other concerns you need to call 911 or seek immediate care. Please stay hydrated. Prescriptions: No Action No Known Home Meds Interventions: ED Discharge Assessment Last Done: 09/29/25 09:29 Discharge Date/Time: 09/29/25 09:43 Print Language: Vietnamese
[2025-09-28 20:28] VITALS: BP 101/50; PULSE 70; TEMP 36.7; O2SAT 96
[2025-09-29 05:56] VITALS: BP 92/53; PULSE 77; RESP 18; O2SAT 93
[2025-09-29 07:51] VITALS: BP 116/59; PULSE 76; RESP 15; TEMP 36.9; O2SAT 90
[2025-09-29 09:29] VITALS: BP 116/59; PULSE 76; RESP 15; TEMP 36.9; O2SAT 90
--- NOTE | 2025-09-29 09:43 | PC.NURSE ---
belongings obtained from [address] [facility] [address] prior to discharge. oxygen administration discontinued prior to d/c as pt was maintaining O2 w/o difficulty and in no apparent respiratory distress. no sob/wob noted.
== END 2025-09-29 09:43 | disposition home or self-care (01) ==
PROVIDERS: Emergency Provider Emergency Medicine
DX: F10.229 Alcohol dependence with intoxication, unspecified (principal); I50.9 Heart failure, unspecified; K74.60 Unspecified cirrhosis of liver; J96.10 Chronic respiratory failure, unspecified whether with hypoxia or hypercapnia; Z59.00 Homelessness unspecified; Z91.199 Patient's noncompliance with other medical treatment and regimen due to unspecified reason
CPT/HCPCS: 99284

== ENCOUNTER 2025-09-29 13:53 | Emergency (ER) | payer MEDICAID, SELFPAY ==
--- NOTE | ~2025-09-29 | XR_ITS ---
EXAMINATION: XR SHOULDER, LEFT CLINICAL INFORMATION: pain, unsure if he fell COMPARISON: 03/04/2025 TECHNIQUE: AP external rotation, Grashey, scapular Y views of the left shoulder. FINDINGS: There is diffuse osteopenia. The AC joint is intact and not degenerated. Mild degenerative changes are evident in the glenohumeral joint with small marginal osteophytes. There is no dislocation. 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 Diffuse osteopenia. Electronically signed by: Elias Smith MD 09/29/2025 03:38 PM EST
[2025-09-29 14:02] VITALS: BP 110/71; BP 115/76; PULSE 80; PULSE 81; RESP 20; TEMP 36.2; O2SAT 80; O2SAT 98; BMI 22.1
[2025-09-29 14:05] VITALS: O2SAT 93
--- NOTE | 2025-09-29 14:05 | PC.NURSE ---
Patient 80% on room air, changed into hospital attire and put on 2L O2 by ed pct. O2 up to 93%
--- NOTE | 2025-09-29 14:17 | ED.ALCOHOL ---
HPI - Alcohol General Chief Complaint: ETOH/Substance Use Stated Complaint: ETOH Time Seen by Provider: 09/29/25 14:16 Source: patient, EMS, RN notes reviewed and old records reviewed Mode of arrival: EMS Limitations: no limitations History of Present Illness ED Provider: VIVIEN Mosher HPI narrative: 55-year-old male with medical history of alcohol use disorder, chronic respiratory failure, CHF, noncompliance, pneumonia who presents to the ED by EMS as the patient was knocking on fire stations door. Patient was just in the department for ETOH overnight and discharged around 8 this morning. Patient states after he discharge he drank approximately a half pt of vodka and several beers. Patient is complaining of pain in his L shoulder, states he does not think he fell. Denies chest pain, SOB, fevers, abdominal pain, nausea, vomiting, urinary symptoms, Related Data Home Medications ?Medication ?Instructions ?Recorded ?Confirmed No Known Home Meds 09/30/25 09/30/25 Allergies Allergy/AdvReac Type Severity Reaction Status Date / Time No Known Allergies (No Known Allergy Verified 09/29/25 14:13 Allergies*) Review of Systems Review of Systems: Yes all other systems are reviewed and are negative PMFSH Past Medical History Attestation statement: The following information was validated with the patient. Source: old records reviewed and nursing notes reviewed Medical History Hemorrhoids, internal, with bleeding Rectal bleeding Pancytopenia Alcohol withdrawal Alcohol use disorder, severe, dependence Pancytopenia Cirrhosis Hypomagnesemia Aspiration pneumonia Alcohol use disorder CHF (congestive heart failure) Alcohol abuse Acute hypoxemic respiratory failure Anemia Pneumonia Alcohol withdrawal syndrome Alcohol abuse Thrombocytopenia Esophageal varices Acute on chronic anemia Alcoholic liver disease Thrombocytopenia Malnutrition CHF (congestive heart failure) Anemia Thrombocytopenia Acute on chronic anemia CHF (congestive heart failure) Anemia Alcohol abuse Surgical History No history of previous surgery Social History Social History Household Members: None Household Members Other:: homeless Housing: Homeless Housing Other:: homeless Do you presently have visiting nurse or other home services: No Alcohol intake: current Alcohol intake frequency: 3 or more drinks per day Alcohol type: beer and hard liquor Comment: pt refuse to have staff remain in BR Patient Tobacco Use Status: Former Tobacco user Tobacco use type: Cigarette Second Hand Smoke Exposure: No Advance Directives: Yes Advance Directives on File: Yes Advance Directives Date on File: 07/13/23 Do you have a plan to hurt others: No Plan service: No Physical Exam ED Vital Signs: Vital Signs - 24 hr 09/29/25 20:37 09/29/25 22:23 09/30/25 05:48 Temperature 98.4 F 98.9 F Pulse Rate 82 81 77 Respiratory Rate 16 16 16 Blood Pressure 94/50 L 95/53 L 107/46 L Pulse Oximetry 92 92 92 Oxygen Delivery Method Nasal Cannula Nasal Cannula Nasal Cannula Oxygen Flow Rate 3 3 3 09/30/25 07:35 09/30/25 14:00 Temperature 98.7 F 98.1 F Pulse Rate 75 95 Respiratory Rate 16 16 Blood Pressure 110/57 L 107/60 Pulse Oximetry 82 L 91 L Oxygen Delivery Method Room Air Nasal Cannula Oxygen Flow Rate 2 BMI result Body Mass Index 22.1 GENERAL APPEARANCE: ?AxOx4, appears intoxicated, no acute distress. HEENT: ?NC, AT. MMM. EOMI, clear conjunctiva, oropharynx clear. NECK: ?Supple without lymphadenopathy.? No stiffness or restricted ROM. HEART:? Normal rate and regular rhythm, normal S1/S2, no m/r/g LUNGS:? CTAB, moving air well. No crackles or wheezes are heard. ABDOMEN: ?Soft, nontender, nondistended with good bowel sounds heard. BACK: No CVAT, no obvious deformity. EXTREMITIES: ?Without cyanosis, clubbing or edema. TTP of L shoulder, no overlying skin changes or ecchymosis noted. NEUROLOGICAL: ?Grossly nonfocal. Alert and oriented, moving all 4 extremities. Skin: ?Warm and dry without any rash. Course Course Course Narrative: Alley Del Rosario DO 09/30/25 0733 Physician observation continued at this time we will reassess oxygen needs. We already know he needs oxygen he does not need admission we will offer placement for again O2 use. We will involve case management Reevaluation(s) Reevaluation #1: 2:33 PM 09/30/2025 (ISAIAS MORATAYA): Unfortunately I can not get the patient to stay and he also will not go to an acute rehab. He is aware he needs oxygen. He has been spoken to by me as well as case management he has no interest in placement. He unfortunately refuses and leaves all the time AMA despite being hypoxic. He has no SI, he is not intoxicated at this time, he has no issue that is causing him not to understand why we want to keep him. He has refused care multiple times. I have section 35 him in the past and unfortunately it has not worked Medical Decision Making Medical Decision Making [facility] Narrative: 55-year-old male with medical history of alcohol use disorder, chronic respiratory failure, CHF, noncompliance, pneumonia who presents to the ED by EMS as the patient was knocking on fire stations door. Patient was just in the department for ETOH overnight and discharged around 8 this morning. Patient drank a half pt of vodka and several beers after discharge this morning. Patient is complaining of pain of the left shoulder states he does not think he fell. Patient does not want to speak with recovery team for help with alcohol use disorder. VS on initial observation-BP 110/71, pulse rate of 80, respiratory rate of 20, afebrile with oral temp of 97.1?, O2 saturation 80% on room air. Patient was placed on 2 L nasal cannula. On physical exam patient is intoxicated with slurred speech, alcoholic odor on breath. Patient TTP of left shoulder, no overlying skin changes or bony abnormalities observed or palpated. Labs without leukocytosis/leukopenia, normocytic anemia with a hemoglobin of 10.8, hematocrit of 33.4, platelet count of 73, no electrolyte abnormalities, mildly elevated AST of 43 however this looks to be around patient's baseline. VBG reveals a decreased HC03 of 15 however this appears to be around patient's baseline, no other derangements on VBG. Toxicology positive for barbiturates, and ethanol level of 401. XR L shoulder negative for fracture or dislocation however shows degenerative changes. Nothing emergent found on labs today, patient will be observed in the department and allowed to metabolize to freedom. Differential Diagnosis Differential Diagnoses: The differential diagnosis associated with the presentation includes Electrolyte abnormality Alcohol intoxication Alcohol withdrawal Admission/Observation Consideration of admission/observation: Escalation of care including admission/observation considered Lab Data [facility] Lab Attestation statement: I reviewed the patient's lab results. 09/29/25 14:45 09/29/25 14:45 Labs: Lab Results 09/29/25 09/29/25 Range/Units 14:45 14:53 WBC 6.1 (4.8-10.8) X10*3/uL RBC 3.55 L (4.60-5.80) X10*6/uL Hgb 10.8 L (14.0-18.0) g/dl Hct 33.4 L (42.0-52.0) % MCV 94.1 (80.0-98.0) fL MCH 30.4 (27.0-33.0) pg MCHC 32.3 (31.0-36.0) g/dl RDW 16.1 H (11.0-16.0) % Plt Count 73 L (160-400) X10*3/uL MPV 12.4 (9.4-12.4) fL Immature Gran % (Auto) 0.5 H (0.0-0.4) % Neut % (Auto) 76.4 H (45-73) % Lymph % (Auto) 11.7 L (20-40) % Twiggs % (Auto) 10.0 (2-11) % Eos % (Auto) 0.2 (0-4) % Baso % (Auto) 1.2 (0-2) % Lymph # (Auto) 0.7 L (1.2-4.9) X10*3/uL Twiggs # (Auto) 0.6 (0.1-1.2) X10*3/uL Eos # (Auto) 0.0 (0.0-0.4) X10*3/uL Baso # (Auto) 0.1 (0.0-0.2) X10*3/uL Abs Immat Gran (auto) 0.03 (0.00-0.03) X10*3/uL Absolute Neuts (auto) 4.6 (2.0-8.3) x10*3/uL Absolute Nucleated RBC 0.000 (0.0-0.012) X10*3/uL Nucleated RBC % (auto) 0.0 (0.0-0.2) /100WBC VBG pH 7.34 (7.32-7.43) VBG pCO2 27 mmHg VBG pO2 74 mmHg VBG HCO3 15 L (22-26) mmol/L VBG O2 Saturation 90.0 % VBG Base Excess -9.0 mmol/L Sodium 140 (135-145) mmol/L Potassium 3.8 (3.3-5.1) mmol/L Chloride 111 H (96-108) mmol/L Carbon Dioxide 16 L (22-29) mmol/L Anion Gap 17 (12-20) BUN 15 (9-16) mg/dL Creatinine 0.87 (0.5-1.4) mg/dL Estim Creat Clear Calc 76.0 Estimated GFR > 60 Random Glucose 107 (60-115) mg/dL Calcium 8.7 (8.4-10.2) mg/dL Magnesium 1.9 (1.6-2.6) mg/dL Total Bilirubin 0.5 (0.0-1.0) mg/dL AST 43 H (5-37) U/L ALT 12 (0-40) U/L Alkaline Phosphatase 111 (39-117) U/L Total Protein 8.0 (6.5-8.0) g/dL Albumin 3.7 (3.5-5.0) g/dL Ethyl Alcohol 401 H* mg/dL Independent Interpretation I performed an independent interpretation of an: Plain X-Ray Interpretation: I personally interpreted the XR L shoulder which was negative for fracture, dislocation however did show degenerative changes, I agree with the radiologist's interpretation Radiology Impression Discussion of test interpretation with radiology: I have reviewed the radiologist's reading. Radiologist Impression: XR L shoulder FINDINGS: There is diffuse osteopenia. The AC joint is intact and not degenerated. Mild degenerative changes are evident in the glenohumeral joint with small marginal osteophytes. There is no dislocation. 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 Diffuse osteopenia. Electronically signed by: Elias Smith MD 09/29/2025 03:38 PM [facility] Dictated By: Elias Smith MD Signed By: <Electronically signed by Elias Smith MD in OV> 09/29/25 1530 Independent Historian Clinical information obtained from an independent historian. History obtained from or confirmed by: EMS External Record Review External record reviewed: Inpatient record, Office record and Outpatient record Chronic Conditions Patient?s care impacted by: Other (Alcohol use disorder, chronic respiratory failure, CHF, noncompliance, pneumonia) Social Determinants Patient?s care significantly limited by Social Determinants of Health including: Other Social Determinant of Health Medications Administered Discontinued Medications Generic Name Dose Route Start Last Admin Trade Name David PRN Reason Stop Dose Admin Chlordiazepoxide HCl 100 mg 09/29/25 21:46 09/29/25 21:51 Chlordiazepoxide Hcl 25 Mg Capsule PO 09/29/25 21:47 100 mg ONCE ONE Administration Discharge Plan Discharge Clinical Impression: Alcohol use disorder, Hypoxia Alcohol intoxication Qualifiers: Complication of substance-induced condition: uncomplicated Qualified Code(s): F10.920 - Alcohol use, unspecified with intoxication, uncomplicated Patient Disposition: Left Against Medical Advice Instructions: Alcohol Use Disorder (ED), Hypoxia (ED), Against Medical Advice (ED) Additional Instructions: Alcohol use disorder You were seen in the Emergency Department today for treatment of alcohol use disorder.? You may have been given medications to help with your withdrawal symptoms.? Please do not drink alcohol with them. This is very dangerous and can cause respiratory depression or other adverse reactions depending on the medication. If you would like to cut down or stop your alcohol use please consider calling our outpatient Addiction Treatment office:? [facility] (M-F 9a-5p) [address] [place] [phone] You have also been given a list of treatment providers in the area that can assist as well.? If you experience seizures, vomiting blood, black stools, falls, severe headache, chest pain, fevers, trouble breathing, hallucinations or any other concerns you need to call 911 or seek immediate care. Please stay hydrated. Prescriptions: No Action No Known Home Meds Print Language: Syriac
[2025-09-29 14:52] LABS: MANUAL DIFF FLAG NO
[2025-09-29 14:55] LABS: Hematocrit 33.4 % (42.0-52.0); Hemoglobin 10.8 g/dl (14.0-18.0); Imm Gran Abs Auto 0.03 X10*3/uL (0.00-0.03); Imm Gran Pct Auto 0.5 % (0.0-0.4); Lymphocytes Absolute Auto 0.7 X10*3/uL (1.2-4.9); Mean Corpuscular HGB Conc 32.3 g/dl (31.0-36.0); Mean Corpuscular Hemoglobin 30.4 pg (27.0-33.0); Mean Corpuscular Volume 94.1 fL (80.0-98.0); NRBC Abs Auto 0.000 X10*3/uL (0.0-0.012); NRBC Pct Auto 0.0 /100WBC (0.0-0.2); Red Blood Count 3.55 X10*6/uL (4.60-5.80); Venous Blood Gas Refer to POC result; White Blood Count 6.1 X10*3/uL (4.8-10.8)
[2025-09-29 14:56] LABS: VBG HCO3 15 mmol/L (22-26); VBG O2 % Saturation 90.0 %
[2025-09-29 14:57] LABS: Platelet Count 73 X10*3/uL (160-400)
[2025-09-29 15:07] LABS: Alanine Aminotransferase 12 U/L (0-40); Albumin Level 3.7 g/dL (3.5-5.0); Alkaline Phosphatase 111 U/L (39-117); Anion Gap 17 (12-20); Aspartate Amino Transferase 43 U/L (5-37); Blood Urea Nitrogen 15 mg/dL (9-16); Calcium 8.7 mg/dL (8.4-10.2); Carbon Dioxide 16 mmol/L (22-29); Chloride 111 mmol/L (96-108); Creatinine Clr Calc Pharmacy 76.0; Estimated Glomerular Filt Rate > 60; Magnesium 1.9 mg/dL (1.6-2.6); Potassium 3.8 mmol/L (3.3-5.1); Sodium 140 mmol/L (135-145); Total Protein 8.0 g/dL (6.5-8.0)
--- NOTE | 2025-09-29 15:44 | PC.NURSE ---
report from Karin, pt sleeping, skin wpd, resp even and unlabored
[2025-09-29 20:37] VITALS: BP 94/50; PULSE 82; RESP 16; O2SAT 92
[2025-09-29 22:23] VITALS: BP 95/53; PULSE 81; RESP 16; TEMP 36.9; O2SAT 92
--- OUTSIDE RECORDS SUMMARY | 2025-09-30 04:33 | XMS_ITS | Encounter Summary ---
Author Organization [facility] Address [address] [place] [phone] Phone Care Team Providers Care Impregnating Tank Operator Name Role Phone [facility], [facility] Primary Care Provider Pcp, Unknown Unavailable Unavailable Encounter Details Date Type Department Care Team ([facility] st Contact Info) Description 10/31/2023 Procedure Pass [facility]oscopy Admitting Dept Virtual Department [address] [place] [id number] Social History Tobacco Use Types Packs/Day Years [...] on filedocumented in this encounter Care Teams Impregnating Tank Operator Relationship Specialty Start Date End Date [facility] [address] [place] [address] PCP - General 10/07/23 Pcp, Unknown 10/07/23 documented as of this encounter Additional Source Comments The information contained in this document represents components of the legal health record. It is not the complete legal health record.[facility]
--- OUTSIDE RECORDS SUMMARY | 2025-09-30 04:34 | XMS_ITS | Encounter Summary ---
Author Organization [facility] Address [address] [place] [phone] Phone Care Team Providers Care Army Ranger Name Role Phone Elbert Hayward MD Primary Care Provider [facility], [facility] Primary Care Provider Pcp, Unknown Unavailable Unavailable Encounter Details Date Type Department Care Team (Late st Contact Info) Description 10/06/2023 Procedure Pass [facility], Ct Scan - [address] [address] Social History Tobacco Use Types Packs/Day Years [...] on filedocumented in this encounter Care Teams Army Ranger Relationship Specialty Start Date End Date Elbert Hayward MD PCP - General 05/13/14 10/06/23 [facility], MD Marya [address] [place] [address] PCP - General 10/07/23 Pcp, Unknown 10/07/23 documented as of this encounter Additional Source Comments The information contained in this document represents components of the legal health record. It is not the complete legal health record.[facility]
--- OUTSIDE RECORDS SUMMARY | 2025-09-30 04:34 | XMS_ITS | Encounter Summary ---
Author Organization [facility] Address [address] [place] [address] [place] [address] Care Team Providers Care Vacation Sales Advisor Name Role Phone Charbel Calles RN Unavailable [phone] Conor Vidal Unavailable Encounter Details Date Type Department Care Team (Latest Contact Info) Description 09/08/2025 Results [facility] Information Management [address] [place] [address] External Provider, [facility] CTA Chest PE Protocal, XR [...] on filedocumented in this encounter Care Teams Vacation Sales Advisor Relationship Specialty Start Date End Date Charbel Calles RN [address] [place] [id number] Registered Nurse Family Medicine 09/11/25 Conor Vidal 09/11/25 documented as of this encounter
--- OUTSIDE RECORDS SUMMARY | 2025-09-30 04:35 | XMS_ITS | Clinical Summary ---
Author Organization [employer] 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 Role Phone Charbel Calles RN Unavailable [phone] Conor Vidal Unavailable Allergies No known [...] with altered mental status from [facility] where he appeared more lethargic than his [...] Encounters Date Type Department Care Team Description 09/29/2025 Orders Only GENERIC EXTERNAL DATA DEPARTMENT Provider, Generic External Data 09/29/2025 Results Follow-Up [facility] Information Management [address] [place] [address] External Provider, [facility] XR Chest 1 View 09/28/2025 Orders Only GENERIC EXTERNAL DATA DEPARTMENT Provider, Generic External Data 09/27/2025 Orders Only [facility] External Provider, [facility] 09/16/2025 Results Follow-Up [facility] Information Management [address] [place] [address] External Provider, [facility] XR Chest 1 View 09/16/2025 Results Follow-Up [facility] Information Management [address] [place] [address] Provider, Generic External Data XR Chest 1 View 09/14/2025 Orders Only GENERIC EXTERNAL DATA DEPARTMENT Provider, Generic External Data 09/13/2025 Orders Only [facility] External Provider, [facility] 09/12/2025 Orders Only GENERIC EXTERNAL DATA DEPARTMENT Provider, Generic External Data 09/11/2025 Patient Outreach [facility] [address], [place] [phone] Edith Zuniga, RN 09/11/2025 Patient Outreach [facility] [address] [place] [address] Conor Vidal Care Coordination (C3/AMY Vidal, Initial outreach call_lvm ) 09/11/2025 Patient Outreach [facility] [address] [place] [address] Conor Vidal Care Coordination (C3/AMY Vidal, Chart review ) 09/11/2025 Patient Outreach [facility] [address] [place] [address] Charbel Calles, RN Care Coordination (C3- chart review) 09/11/2025 Patient Outreach [address] [address] Jodi Cerda, LAURA 09/08/2025 Results Follow-Up [facility] Information Management [address] [place] [address] External Provider, [facility] CTA Chest PE Protocal, XR Chest 1 View 09/06/2025 Orders Only [facility] External Provider, [facility] 09/03/2025 Results Follow-Up [facility] Information [address] [address] Provider, Generic External Data XR Chest 2 Views 09/03/2025 Orders Only GENERIC EXTERNAL DATA DEPARTMENT Provider, Generic External Data 08/21/2025 Orders Only GENERIC EXTERNAL DATA DEPARTMENT Provider, Generic External Data 08/14/2025 Orders Only [facility] External Provider, [facility] 08/04/2025 Patient Outreach [address] [address] Conor Vidal Care Coordination ([facility]/W Conor Vidal, TC #6 outreach_closed ) 07/21/2025 Patient Outreach [address] [address] Conor Vidal 07/08/2025 Patient Outreach [facility] [address] [place] [address] Missy Milner RN 07/07/[address] [address] Mihaela Zhong, LAURA 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 07/06/2025 Orders Only GENERIC EXTERNAL DATA DEPARTMENT Provider, Generic External Data 07/02/2025 Orders Only [facility] External Provider, [facility] 07/01/2025 Patient Outreach [address] [address] Missy Milner, LAURA Care Coordination ([facility] Conor Vidal, TC #5 initial outreach attempt_lvm) [...] Name Priority Date/Time Associated Diagnosis Comments XR SHOULDER 2+ VIEWS LEFT Routine 09/29/2025 3:20 PM EST VENOUS BLOOD GAS Routine 09/29/2025 2:53 PM EST MAGNESIUM Routine 09/29/2025 2:45 PM EST COMPREHENSIVE METABOLIC PANEL Routine 09/29/2025 2:45 PM EST ETHANOL Routine 09/29/2025 2:45 PM EST CBC WITH AUTO DIFFERENTIAL Routine 09/29/2025 2:45 PM EST XR CHEST 1 VIEW Routine 09/28/2025 4:28 [...] from Last 3 Months Results * XR Shoulder 2+ Views Left (09/29/2025 3:20 PM EST) Anatomical Region Laterality Modality Upper Extremities, Shoulder Left Radi ographic Imaging 09/29/2025 3:20 PM EST Narrative 09/29/2025 3:41 PM EST [address] [address] XRay Report Signed Patient: Charbel Delgdao MR#: [id number] : 1970 Acct:[id number] Age/Sex: 55 / M ADM Date: 09/29/25 Loc: HO.ED Attending Dr: Ordering Physician: Jones Mosher PA-C Date of Service: 09/29/25 Procedure(s): XR shoulder LT min 2V Accession Number(s): [id number] cc: Jones Mosher PA-C; [facility] Reason for Exam: pain, unsure if he fell EXAMINATION: XR SHOULDER, LEFT CLINICAL INFORMATION: pain, unsure if he fell COMPARISON: 03/04/2025 TECHNIQUE: AP external rotation, Grashey, scapular Y views of the left shoulder. FINDINGS: There is diffuse osteopenia. The AC joint is intact and not degenerated. Mild degenerative changes are evident in the glenohumeral joint with small marginal osteophytes. There is no dislocation. 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 Diffuse osteopenia. Electronically signed by: Elias Smith MD 09/29/2025 03:38 PM [facility] Dictated By: Elias Smith MD Signed By: <Electronically signed by Elias Smith MD in OV> 09/29/25 1538 DD/ 1520 TD/TT: 09/29/25 1526 Head Waiter/Waitress Banquet: Procedure Note Donotuseinterpreter, Image - 09/29/[address] [address] XRay Report Signed Patient: Rod DelgadoR#: [id number] : 1970Acct:[id number] Age/Sex: 55 / MADM Date: 09/29/25 Loc: HO.ED Attending Dr: Ordering Physician: Jones Mosher PA-C Date of Service: 09/29/25 Procedure(s): XR shoulder LT min 2V Accession Number(s): [id number] cc: Jones Mosher PA-C; [facility] Reason for Exam: pain, unsure if he fell EXAMINATION: XR SHOULDER, LEFT CLINICAL INFORMATION: pain, unsure if he fell COMPARISON: 03/04/2025 TECHNIQUE: AP external rotation, Grashey, scapular Y views of the left shoulder. FINDINGS: There is diffuse osteopenia. The AC joint is intact and not degenerated. Mild degenerative changes are evident in the glenohumeral joint with small marginal osteophytes. There is no dislocation. 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 Diffuse osteopenia. Electronically signed by: Elias Smith MD 09/29/2025 03:38 PM EST RP Dictated By: Elias Smith MD Signed By: <Electronically signed by Elias Smith MD in OV> 09/29/25 1538 DD/ 1520 TD/TT: 09/29/25 1526 Head Waiter/Waitress Banquet: [employer] External Provider IMG XR PROCEDURES Final Result * (ABNORMAL) VENOUS BLOOD GAS (09/29/2025 2:53 PM EST) Only the most recent of2 resultswithin the time period is included. VBG pH 7.34 7.32 - 7.43 [facility] Comment:METER #: [id number] additional_comment: Cb bdaweh VBG PCO2 27 mmHg [facility] Comment:METER #: [id number] additional_comment: Cb bdaweh VBG PO2 74 mmHg [facility] Comment:METER #: [id number] additional_comment: Cb bdaweh VBG Base Excess -9.0 mmol/L [facility] Comment:METER #: [id number] additional_comment: Cb bdaweh VBG HCO3 15(L) 22 - 26 mmol/L [facility] Comment:METER #: [id number] additional_comment: Junior khaneh O2 Sat, Demetrio 90.0 % [facility] Comment:METER #: [id number] additional_comment: Junior demarco 09/29/2025 2:53 PM EST 09/29/2025 2:56 PM EST Generic External Data Provider LAB BLOOD ORDERAB LES Final Result Performing Organization Address [facility] Co de Phone Number [facility] [address] [place] [phone] * (ABNORMAL) Ethanol (09/29/2025 2:45 PM EST) Only the most recent of7 resultswithin the time period is included. Pathologist [facility] ETHANOL (MG/DL) IN SER/PLAS 401(HH) mg/dL [facility] Comment:Serum/plasma ethanol results are to be used formedical/treatment purposes only. 09/29/2025 2:45 PM EST 09/29/2025 2:50 PM EST us Generic External Data Provider LAB BLOOD ORDERAB LES Final Result Performing Organization Address [facility] de Phone Number [facility] [address] [place] [phone] * (ABNORMAL) CBC auto differential (09/29/2025 2:45 PM EST) Only the most recent of9 resultswithin the time period is included. Pathologist [facility] White Blood Count 6.1 4.8 - 10.8 X10*3/uL [facility] Red Blood Count 3.55(L) 4.60 - 5.80 X10*6/uL [facility] Hemoglobin 10.8(L) 14.0 - 18.0 g/dl [facility] Hematocrit 33.4(L) 42.0 - 52.0 % [facility] Mean Corpuscular Volume 94.1 80.0 - 98.0 fL [facility] Mean Corpuscular Hemoglobin 30.4 27.0 - 33.0 pg [facility] Mean Corpuscular HGB Conc 32.3 31.0 - 36.0 g/dl [facility] Red Cell Distribution Width 16.1(H) 11.0 - 16.0 % [facility] Platelet Count 73(L) 160 - 400 X10*3/uL [facility] Mean Platelet Volume 12.4 9.4 - 12.4 fL [facility] Neutrophils Percent Auto 76.4(H) 45 - 73 % [facility] Imm Gran Pct Auto 0.5(H) 0.0 - 0.4 % [facility] Lymphocytes Percent Auto 11.7(L) 20 - 40 % [facility] Monocytes Percent Auto 10.0 2 - 11 % [facility] Eosinophils Percent Auto 0.2 0 - 4 % [facility] Basophils Percent Auto 1.2 0 - 2 % [facility] NRBC Pct Auto 0.0 0.0 - 0.2 /100WBC [facility] Neutrophils Absolute Auto 4.6 2.0 - 8.3 x10*3/uL [facility] Imm Gran Abs Auto 0.03 0.00 - 0.03 X10*3/uL [facility] Lymphocytes Absolute Auto 0.7(L) 1.2 - 4.9 X10*3/uL [facility] Monocytes Absolute Auto 0.6 0.1 - 1.2 X10*3/uL [facility] Eosinophils Absolute Auto 0.0 0.0 - 0.4 X10*3/uL [facility] Basophils Absolute Auto 0.1 0.0 - 0.2 X10*3/uL [facility] NRBC Abs Auto 0.000 0.0 - 0.012 X10*3/uL [facility] 09/29/2025 2:45 PM EST 09/29/2025 2:50 PM EST us Generic External Data Provider LAB BLOOD ORDERAB LES Final Result Performing Organization Address City/State/[facility] Co de Phone Number [facility] [address] [place] [phone] * Magnesium (09/29/2025 2:45 PM EST) Only the most recent of4 resultswithin the time period is included. Magnesium 1.9 1.6 - 2.6 mg/dL [facility] 09/29/2025 2:45 PM EST 09/29/2025 2:50 PM EST us Generic External Data Provider LAB BLOOD ORDERAB LES Final Result [facility] [address] [place] [phone] * (ABNORMAL) Comprehensive Metabolic Panel (09/29/2025 2:45 PM EST) Only the most recent of7 resultswithin the time period is included. Sodium 140 135 - 145 mmol/L [facility] Potassium 3.8 3.3 - 5.1 mmol/L [facility] Chloride 111(H) 96 - 108 mmol/L [facility] Carbon Dioxide 16(L) 22 - 29 mmol/L [facility] Anion Gap 17 12 - 20 [facility] Urea Nitrogen (BUN) 15 9 - 16 mg/dL [facility] Creatinine, Serum 0.87 0.5 - 1.4 mg/dL [facility] Creatinine Clr Calc Pharmacy 76.0 [facility] Comment:eGFR (calculated fro m the MDRD study equation) and eCrCl(calculated from the Cockcroft-Gault equation) are based ondifferent parameters and may not yield comparable results.If eCrCl result is absurd, please check patient'sheight/weight. Estimated Glomerular Filt Rate >60 [facility] Comment:Chronic Kidney Disea se: Estimated GFR < 60 mL/min/1.08n5Czpikc Kidney Disease: Estimated GFR < 15 mL/min/1.73m2 Glucose 107 60 - 115 mg/dL [facility] Calcium 8.7 8.4 - 10.2 mg/dL [facility] Bilirubin, Total 0.5 0.0 - 1.0 mg/dL [facility] Aspartate Amino Transferase 43(H) 5 - 37 U/L [facility] Alanine Aminotransferase 12 0 - 40 U/L [facility] Total Protein 8.0 6.5 - 8.0 g/dL [facility] Albumin Level 3.7 3.5 - 5.0 g/dL [facility] Alkaline Phosphatase 111 39 - 117 U/L [facility] 09/29/2025 2:45 PM EST 09/29/2025 2:50 PM EST us Generic External Data Provider LAB BLOOD ORDERAB LES Final Result Performing Organization Address City/State/[facility] Co de Phone Number [facility] [address] [place] [address] [phone] * XR Chest 1 View (09/28/2025 4:28 AM EST) Only the most recent of8 resultswithin the time period is included. Anatomical Region Laterality Modality Chest Radiographic Lamar ging 09/28/2025 4:28 AM EST Narrative 09/28/2025 4:30 AM EST [address] [address] XRay Report Signed Patient: Charbel Delgado MR#: [id number] : 1970 Acct:[id number] Age/Sex: 55 / M ADM Date: 09/27/25 Loc: HO.ED Attending Dr: Ordering Physician: Alexandria Sweeney MD Date of Service: 09/28/25 Procedure(s): XR chest 1V Accession Number(s): [id number] cc: [facility]; Alexandria Sweeney MD Reason for Exam: [...] in OV> 09/28/25428 DD/ 7 TD/TT: 09/28/25427 Head Waiter/Waitress Banquet: Procedure Note Shoaibter, Image - 09/28/[address] [address] XRay Report Signed Patient: Isaias Delgado#: [id number] : 1970Acct:[id number] Age/Sex: 55 / MADM Date: 09/27/25 Loc: HO.ED Attending Dr: Ordering Physician: Alexandria Sweeney MD Date of Service: 09/28/25 Procedure(s): XR chest 1V Accession Number(s): [id number] cc: [facility]; Alexandria Sweeney MD Reason for Exam: [...] in OV> 09/28/25428 DD/ 7 TD/TT: 09/28/25427 Head Waiter/Waitress Banquet: us [facility] External Provider IMG XR PROCEDURES Final Result * Type and screen (09/28/2025 12:13 AM EST) Blood Type BP [facility] Antibody Screen NEGATIVE [facility] 09/28/2025 12:1 3 AM EST 09/28/2025 12:16 AM EST Generic External Data Provider LAB BLOOD BANK TE ST ORDERABLES Final Result [facility] [address] [place] [phone] * (ABNORMAL) Hepatic Function Panel (09/28/2025 12:13 AM EST) Only the most recent of2 resultswithin the time period is included. Pathologist [facility] Bilirubin, Total 0.3 0.0 - 1.0 mg/dL [facility] Bilirubin, Direct 0.2 0.0 - 0.5 mg/dL [facility] Aspartate Amino Transferase 38(H) 5 - 37 U/L [facility] Alanine Aminotransferase 12 0 - 40 U/L [facility] Total Protein 7.8 6.5 - 8.0 g/dL [facility] Albumin Level 3.7 3.5 - 5.0 g/dL [facility] Alkaline Phosphatase 115 39 - 117 U/L [facility] 09/28/2025 12:1 3 AM EST 09/28/2025 12:16 AM EST us Generic External Data Provider LAB BLOOD ORDERAB LES Final Result [facility] [address] [place] [phone] * (ABNORMAL) Basic Metabolic Panel (09/28/2025 12:13 AM EST) Only the most recent of2 resultswithin the time period is included. Pathologist [facility] Sodium 137 135 - 145 mmol/L [facility] Potassium 3.5 3.3 - 5.1 mmol/L [facility] Chloride 111(H) 96 - 108 mmol/L [facility] Carbon Dioxide 15(L) 22 - 29 mmol/L [facility] Anion Gap 15 12 - 20 [facility] Urea Nitrogen (BUN) 19(H) 9 - 16 mg/dL [facility] Creatinine, Serum 0.86 0.5 - 1.4 mg/dL [facility] Creatinine Clr Calc Pharmacy 85.0 [facility] Comment:eGFR (calculated fro m the MDRD study equation) and eCrCl(calculated from the Cockcroft-Gault equation) are based ondifferent parameters and may not yield comparable results.If eCrCl result is absurd, please check patient'sheight/weight. Estimated Glomerular Filt Rate >60 [facility] Comment:Chronic Kidney Disea se: Estimated GFR < 60 mL/min/1.84e7Smvgfo Kidney Disease: Estimated GFR < 15 mL/min/1.73m2 Glucose 102 60 - 115 mg/dL [facility] Calcium 8.6 8.4 - 10.2 mg/dL [facility] 09/28/2025 12:1 3 AM EST 09/28/2025 12:16 AM EST us Generic External Data Provider LAB BLOOD ORDERAB LES Final Result [facility] [address] [place] [phone] * (ABNORMAL) Urinalysis, Complete, with Reflex to Culture (09/14/2025 2:12 AM EST) Only the most recent of3 resultswithin the time period is included. Color Urine Yellow [facility] Appearance Urine Clear [facility] PH 5.5 5.0 - 9.0 [facility] Glucose Urine UA Negative Negative mg/dL [facility] Urine Blood Negative Negative [facility] Specific [place] - Urine 1.010 1.005 - 1.025 [facility] Urine Protein Negative Neg-Trace mg/dL [facility] Urine Ketones Negative Negative mg/dL [facility] Nitrite Urine Negative Negative [facility] Leukocyte Esterase Urine Trace(A) Negative [facility] RBC Urine 0-2 0 - 2 /HPF [facility] Urine WBC 0-5 0 - 5 /HPF [facility] Urine Squamous Epithelial Cell 0-2 0 - 2 /HPF [facility] Urine Bacteria None Seen None Seen [facility] Hyaline Casts, Urine 0-2 0 - 2 /LPF [facility] 09/14/2025 2:12 AM EST 09/14/2025 2:16 AM EST Narrative [facility] - 09/14/2025 2:30 AM EST Urine, Clean Catch us Generic External Data Provider LAB URINE ORDERAB LES Final Result [facility] [address] [place] [phone] * (ABNORMAL) Drug Monitoring, Panel 1, [...] Final Result Performing Organization Address [facility] de Phone Number [facility] [address] [place] [phone] * Lactic Acid (09/14/2025 1:01 AM EDT) Only the most recent of4 resultswithin the time period is included. Lactic Acid 2.0 0.5 - 2.0 mmol/L [facility] 09/14/2025 1:01 AM EDT 09/14/2025 1:04 AM EDT Generic External Data Provider LAB BLOOD ORDERAB LES Final Result Performing Organization Address [facility] Co de Phone Number [facility] [address] [place] [phone] * Blood Culture (First) (09/13/2025 10:41 PM EDT) Only the most recent of2 resultswithin the time period is included. Blood Venous blood specimen / Unknown 09/13/2025 10:41 PM EDT 09/13/2025 10:51 PM EDT Comment:Blood Narrative [facility] - 09/19/2025 12:51 AM EST Blood Culture (First) No growth after 5 days. Specimen Source: Blood Generic External Data Provider LAB MICROBIOLOGY - GENERAL ORDERABLES Final Result Performing Organization Address [facility] de Phone Number [facility] [address] [place] [phone] * Blood Culture (Second) (09/13/2025 10:41 PM EDT) Only the most recent of2 resultswithin the time period is included. Blood Venous blood specimen / Unknown 09/13/2025 10:41 PM EDT 09/13/2025 10:54 PM EDT Comment:Blood Narrative [facility] - 09/19/2025 12:54 AM EST Blood Culture (Second) No growth after 5 days. Specimen Source: Blood Generic External Data Provider LAB MICROBIOLOGY - GENERAL ORDERABLES Final Result Performing Organization Address [facility] [place] Number [facility] [address] [place] [phone] * High Sensitivity Troponin I (09/13/2025 10:41 PM EDT) Only the most recent of5 resultswithin the time period is included. TROPONIN I HIGH SENSITIVITY <2.7 <3.5 - 35.0 ng/L [facility] Comment:The Yarbrough high sens itivity Troponin-I results should beused in conjunction with other diagnostic information suchas ECG, clinical observations and information, and patientsymptoms to aid in the diagnosis of IA. 09/13/2025 10:4 1 PM EDT 09/13/2025 10:51 PM EDT Generic External Data Provider LAB BLOOD ORDERAB LES Final Result Performing Organization Address [facility] de Phone Number [facility] [address] [place] [phone] * SARS-CoV-2 RNA, Influenza A/B, and RSV RNA, Ql NAAT (09/13/2025 10:41 PM EDT) Influenza A PCR NEGATIVE Negative [facility] Influenza B PCR NEGATIVE Negative [facility] Resp Syncy Virus RNA Qual PCR NEGATIVE Negative [facility] SARS COV2 PCR NEGATIVE Negative [facility] Comment:All test results mus t [...] use by authorized laboratories.Testing performed on the [employer] GeneXpert utilizingreal-time RT-PCR.All SARS CoV2 and positive influenza A/B results arereported to [facility]. 09/13/2025 10:4 1 PM EDT 09/13/2025 10:51 PM EDT us Generic External Data Provider LAB MICROBIOLOGY - GENERAL ORDERABLES Final Result [facility] [address] [place] [phone] * NT-proBNP (09/13/2025 10:41 PM EDT) Only the most recent of5 resultswithin the time period is included. NT-proBNP 174.0 <300 pg/mL [facility] Comment:Reference Range:Age Group (years) NT-proBNP (pg/ml) InterpretationAll <300 Negative: HF unlikelyFor patients presenting to the ED with clinical suspicion ofnew onset or worsening HF, see below:18 to <50 >299.9 to <450.0 Grayzone: [id number] to 75 >299.9 to <900.0 other causes of>75 >299.9 to <1800.0 NT-proBNP fihejwhps25 to <50 >449.9 Positive: HF [id number] >899.9>75 >1799.9Note: Elevated NT-proBNP levels should be interpreted inthe context of other clinical information. 09/13/2025 10:4 1 PM EDT 09/13/2025 10:51 PM EDT us Generic External Data Provider LAB BLOOD ORDERAB LES Final Result Performing Organization Address [facility] Co de Phone Number [facility] [address] [place] [phone] * (ABNORMAL) Lactic Acid (09/13/2025 10:41 PM EDT) Only the most recent of3 resultswithin the time period is included. Lactic Acid 2.1(HH) 0.5 - 2.0 mmol/L [facility] Comment:Critical value for t est(s): LACTA Results called to gildardo back by:NATAN Person calling: DEVENDRA Date: 09/13/25Time: 2311 09/13/2025 10:4 1 PM EDT 09/13/2025 10:51 PM EDT Generic External Data Provider LAB BLOOD ORDERAB LES Final Result Performing Organization Address [facility] Co de Phone Number [facility] [address] [place] [phone] * Culture, Urine, Routine (09/12/2025 10:15 PM EDT) Urine Urine specimen obtained by clean catch procedure / Unknown 09/12/2025 10:15 PM EDT 09/12/2025 10:15 PM EDT Comment:CC Narrative [facility] - 09/15/2025 7:48 AM EST Enterococcus faecalis Quant 10,000 to 50,000 cfu/mL Enterococcus faecalis: Ampicillin <=2(S) Enterococcus faecalis: Levofloxacin >=8(R) Enterococcus faecalis: Nitrofurantoin 32(S) Enterococcus faecalis: Tetracycline >=16(R) Enterococcus faecalis: Vancomycin 2(S) Specimen Source: Urine clean catch Generic External Data Provider LAB MICROBIOLOGY - GENERAL ORDERABLES Final Result [facility] [address] [place] [phone] * CTA Chest PE Protocal (09/06/2025 12:04 PM EDT) Anatomical Region Laterality Modality Body, Chest Computed Tomogra phy 09/06/2025 12:0 4 PM EDT Narrative 09/06/2025 12:06 PM EDT [address] [address] [place] Scan Report Signed Patient: Charbel Delgado MR#: [id number] : 1970 Acct:[id number] Age/Sex: 55 / M ADM Date: 09/06/25 Loc: .ED Attending Dr: Ordering Physician: Abril Sam Date of Service: 09/06/25 Procedure(s): CT angio chest PE protocol Accession Number(s): [id number] cc: Abril Sam; [facility] Report Number: [id number]: Total DLP = 188.00 mGy-cm Reason for [...] Beard MD in OV> 09/06/25 1205 DD/ 03 TD/TT: 09/06/251203 Head Waiter/Waitress Banquet: Procedure Note Donotuseinterpreter, Image - 09/06/[address] [address] [place] Scan Report Signed Patient: Isaias Delgado#: [id number] : 1970Acct:[id number] Age/Sex: 55 / MADM Date: 09/06/25 Loc: HO.ED Attending Dr: Ordering Physician: Abril Sam Date of Service: 09/06/25 Procedure(s): CT angio chest PE protocol Accession Number(s): [id number] cc: Abril Sam; [facility] Report Number: [id number]: Total DLP = 188.00 mGy-cm Reason for [...] Beard MD in OV> 09/06/25 1205 DD/ 03 TD/TT: 09/06/251203 Head Waiter/Waitress Banquet: [employer] External Provider IMG CT PROCEDURES Edited Result - Final * (ABNORMAL) Sed Rate by Modified Mariahren (09/06/2025 8:50 AM EDT) Erythrocyte Sedimentation Rate 46(H) 0 - 15 MM/HR [facility] Comment:Patients with polycy themia and many hemoglobin abnormalitiesmay have depressed sed rates whereas patients with anemiamay have elevated sed rates. 09/06/2025 8:50 AM EDT 09/06/2025 8:54 AM EDT Generic External Data Provider LAB BLOOD ORDERAB LES Final Result Performing Organization Address [facility] Co de Phone Number [facility] [address] [place] [phone] * (ABNORMAL) C-reactive Protein (09/06/2025 8:50 AM EDT) Only the most recent of2 resultswithin the time period is included. C Reactive Protein 0.57(H) < or = 0.50 mg/dL [facility] 09/06/2025 8:50 AM EDT 09/06/2025 8:54 AM EDT [employer] External Data Provider LAB BLOOD ORDERAB LES Final Result Performing Organization Address [facility] Co de Phone Number [facility] [address] [place] [phone] * Influenza A B2 ID NOW (Yarbrough) (09/06/2025 8:42 AM EDT) IDNOW SERIAL# [id number] [facility] Influenza A Negative Negative [facility] Influenza B2 Negative Negative [facility] Influenza A B2 Note See Note [facility] Comment:The Yarbrough ID NOW In fluenza [...] LAB MICROBIOLOGY - GENERAL ORDERABLES Final Result [facility] [address] [place] [phone] * COVID-19 ID NOW (YARBROUGH) (09/06/2025 8:42 AM EDT) IDNOW SERIAL# [id number] [facility] COVID-19 TEST Negative Negative [facility] COVID-19 NOTE See Note [facility] Comment: Results are for the identification of SARS-CoV2 RNA. TheSARS-CoV2 RNA is generally detectable in respiratory samplesduring the acute phase of infection. Positive results areindicative of the presence of SARS-CoV-2 RNA; clinicalcorrelation with patient history and other diagnosticinformation is necessary to determine patient infectionstatus. Positive results do not rule out bacterial infectionor co- infection with other viruses.Testing facilities within the [facility] are required to report all positive results [...] GNOSTICS ORDERABLES Final Result Performing Organization Address [facility] Co de Phone Number [facility] [address] [place] [phone] * Slide Review (09/06/2025 12:46 AM EDT) Only the most recent of3 resultswithin the time period is included. Slide Review VERIFIED [facility] 09/06/2025 12:4 6 AM EDT 09/06/2025 12:51 AM EDT Generic External Data Provider LAB BLOOD ORDERAB LES Final Result Performing Organization Address [facility] de Phone Number [facility] [address] [place] [phone] * HOLD LT BLUE - POSSIBLE COAG (09/06/2025 12:46 AM EDT) Only the most recent of2 resultswithin the time period is included. Hold Lt Blue - Possible Coag SEE NOTE [facility] Comment:Specimen will be hel d untested for 4 hours. Call Hematologyif testing is desired. 09/06/2025 12:4 6 AM EDT 09/06/2025 12:54 AM EDT Generic External Data Provider LAB BLOOD ORDERAB LES Final Result Performing Organization Address [facility] Co de Phone Number [facility] [address] [place] [phone] * XR Chest 2 Views (09/03/2025 12:15 PM EDT) Anatomical Region Laterality Modality Chest Radiographic Lamar ging 09/03/2025 12:1 5 PM EDT Narrative 09/03/2025 12:34 PM EDT [address] [address] XRay Report Signed Patient: Charbel Delgado MR#: [id number] : 1970 Acct:[id number] Age/Sex: 55 / M ADM Date: 09/03/25 Loc: HO.ED Attending Dr: Ordering Physician: Johanna Liao Date of Service: 09/03/25 Procedure(s): XR chest 2V Accession Number(s): [id number] cc: [facility]; Johanna Liao Reason for Exam: hypoxic [...] 09/03/25 1231 DD/ 1215 TD/TT: 09/03/25 1225 Head Waiter/Waitress Banquet: Procedure Note Donotuseinterpreter, Image - 09/03/[address] [address] XRay Report Signed Patient: Rod DelgadoR#: [id number] : 1970Acct:[id number] Age/Sex: 55 / MADM Date: 09/03/25 Loc: HO.ED Attending Dr: Ordering Physician: Johanna Liao Date of Service: 09/03/25 Procedure(s): XR chest 2V Accession Number(s): [id number] cc: [facility]; Johanna Liao Reason for Exam: hypoxic [...] focal pneumonia. No effusions. Electronically signed by: aDvid Wang MD 09/03/2025 12:31 PM EDT Dictated By: David Wang MD Signed By: <Electronically signed by David Wang MD in OV> 09/03/25 1231 DD/ 1215 TD/TT: 09/03/25 1225 Head Waiter/Waitress Banquet: [employer] External Provider IMG XR PROCEDURES Final Result * Hold Lavender - Possible Hematology (09/03/2025 11:54 AM EDT) Hold Lavender - Possible Hematololgy SEE NOTE [facility] Comment:Specimen will be hel d untested for 8 hours. Call Hematologyif testing is desired. 09/03/2025 11:5 4 AM EDT 09/03/2025 12:02 PM EDT Generic External Data Provider HISTORICAL/NON OR DERABLE LABS Final Result [facility] [address] [place] [phone] * Lipase (09/03/2025 11:54 AM EDT) Only the most recent of2 resultswithin the time period is included. Lipase 25 8 - 78 U/L [facility] 09/03/2025 11:5 4 AM EDT 09/03/2025 12:03 PM EDT Generic External Data Provider LAB BLOOD ORDERAB LES Final Result Performing Organization Address [facility] de Phone Number [facility] [address] [place] [phone] * Urinalysis w/reflex microscopic (08/21/2025 11:09 PM EDT) Color Urine Dark Yellow [facility] Appearance Urine Clear [facility] PH 5.0 5.0 - 9.0 [facility] Glucose Urine UA Negative Negative mg/dL [facility] Urine Blood Negative Negative [facility] Specific [place] - Urine 1.015 1.005 - 1.025 [facility] Urine Protein Negative Neg-Trace mg/dL [facility] Urine Ketones Negative Negative mg/dL [facility] Nitrite Urine Negative Negative [facility] Leukocyte Esterase Urine Negative Negative [facility] 08/21/2025 11:0 9 PM EDT 08/21/2025 11:13 PM EDT Narrative [facility] - 08/21/2025 11:16 PM EDT [id number], Clean Catch Generic External Data Provider LAB URINE ORDERAB LES Final Result Performing Organization Address [facility] Co de Phone Number [facility] [address] [place] [phone] * (ABNORMAL) Lipid Panel, Standard (08/21/2025 8:16 PM EDT) Triglycerides 62 <150 mg/dL [facility] Comment:Desirable Triglyceri de: less than 150 mg/dLBorderline High Triglyceride 150-199 mg/dLHigh Triglyceride: 200-499 mg/dLVery High Triglyceride: greater than or equal to 5OO mg/dL Cholesterol 118 <200 mg/dL [facility] Comment:Desirable Cholestero l: less than 200 mg/dLBorderline High Cholesterol: 200-239 mg/dLHigh Cholesterol: greater than 239 mg/dL LDL Cholesterol Calculated 77 <100 mg/dL [facility] Comment:Desirable LDL: less than 100 mg/dLNear Optimal/Above Optimal LDL: 110- 129 mg/dLBorderline High LDL: 130-159 mg/dLHigh LDL: 160-189 mg/dLVery High LDL: greater than or equal to 190 mg/dL HDL Cholesterol 29(L) >40 mg/dL [facility] Comment:Desirable HDL: great er than 40 mg/dL Note: This HDL assay may give artificially low results in patients with liver disease. 08/21/2025 8:16 PM EDT 08/21/2025 8:22 PM EDT us Generic External Data Provider LAB BLOOD ORDERAB LES Final Result Performing Organization Address City/State/[facility] Co de Phone Number [facility] [address] [place] [phone] * XR Foot 3+ Views Right (08/15/2025 8:10 AM EDT) Anatomical Region Laterality Modality Lower Extremities, Foot Right Radiogra phic Imaging 08/15/2025 8:10 AM EDT Narrative 08/15/2025 8:34 AM EDT [address] [address] XRay Report Signed Patient: Charbel Delgado MR#: [id number] : 1970 Acct:[id number] Age/Sex: 55 / M ADM Date: 08/15/25 Loc: [facility]: Yazmin WALLACE Ordering Physician: Yazmin Shafer Date of Service: 08/15/25 Procedure(s): XR foot RT min 3V Accession Number(s): [id number] cc: Yazmin Shafer; [facility] Reason for Exam: right foot pain [...] Dony Nunn MD in OV> 08/15/2531 DD/ 0810 TD/TT: 08/15/25 0820 Head Waiter/Waitress Banquet: Procedure Note Donotuseinterpreter, Image - 08/15/2025 [place] [address] XRay Report Signed Patient: Isaias Delgado#: [id number] : 1970Acct:[id number] Age/Sex: 55 / MADM Date: 08/15/25 Loc: [place] [address]: Yazmin WALLACE Ordering Physician: Yazmin Shafer Date of Service: 08/15/25 Procedure(s): XR foot RT min 3V Accession Number(s): [id number] cc: Yazmin Shafer; [facility] Reason for Exam: right foot pain [...] in OV> 08/15/2531 DD/ 9 TD/TT: 08/15/25819 Head Waiter/Waitress Banquet: [employer] External Provider IMG XR PROCEDURES Final Result * B Type Natriuretic Peptide (BNP) (07/06/2025 5:58 PM EDT) B Type Natriuretic Peptide 100 <100 pg/mL [facility] 07/06/2025 5:58 PM EDT 07/06/2025 6:06 PM EDT Generic External Data Provider LAB BLOOD ORDERAB LES Final Result [facility] [address] [place] [phone] from Last 3 Months Insurance [employer] [facility] C3 Care Teams [employer] Milling Machine Operator Relationship Specialty Start Date End Date Charbel Calles, RN [address] [place] [phone] Registered Nurse Family Medicine 09/11/25 Conor Vidal 09/11/25
--- OUTSIDE RECORDS SUMMARY | 2025-09-30 04:35 | XMS_ITS | Encounter Summary ---
Author Organization [employer] Address [address] [place] [address] [address] [place] [address] Care Team Providers Care Backend Tester Name Role Phone Charbel Calles RN Unavailable [phone] Conor Vidal Unavailable Encounter Details Date Type Department Care Team ([facility] st Contact Info) Description 09/29/2025 Results Follow-Up [facility] Information Management [address] [place] [address] External Provider, [facility] XR Chest 1 View Social History Tobacco [...] on filedocumented in this encounter Care Teams Backend Tester Relationship Specialty Start Date End Date Charbel Calles RN [address] [place] [address] Registered Nurse Family Medicine 09/11/25 Conor iVdal 09/11/25 documented as of this encounter
--- OUTSIDE RECORDS SUMMARY | 2025-09-30 04:36 | XMS_ITS | Encounter Summary ---
Author Organization [facility] Address [address] [facility] [address] [place] [phone] Phone Care Team Providers Care Precast Worker Name Role Phone [facility], [facility] Primary Care Provider Pcp, Unknown Unavailable Unavailable Encounter Details Date Type Department Care Team (Late st Contact Info) Description 02/02/2024 Procedure Pass [facility] Admitting Dept Virtual Department [address] [place] [address] Social History Tobacco Use Types Packs/Day Years [...] on filedocumented in this encounter Care Teams Precast Worker Relationship Specialty Start Date End Date [facility] [address] [place] [phone] PCP - General 10/07/23 Pcp, Unknown 10/07/23 documented as of this encounter Additional Source Comments The information contained in this document represents components of the legal health record. It is not the complete legal health record.[facility]
--- OUTSIDE RECORDS SUMMARY | 2025-09-30 04:36 | XMS_ITS | Encounter Summary ---
Author Organization [employer] Address [address] [place] [address] 7 [place] [address] Care Team Providers Care Layer Off Name Role Phone Charbel Calles RN Unavailable [phone] Conor Vidal Unavailable Encounter Details Date Type Department Care Team (Late st Contact Info) Description 09/29/2025 Orders Only GENERIC EXTERNAL DATA [...] BLOOD GAS Routine 09/29/2025 2:53 PM EST ETHANOL Routine 09/29/2025 2:45 PM EST CBC WITH AUTO DIFFERENTIAL Routine 09/29/2025 2:45 PM EST MAGNESIUM Routine 09/29/2025 2:45 PM EST COMPREHENSIVE METABOLIC PANEL Routine 09/29/2025 2:45 PM EST documented in this encounter Results * XR Shoulder 2+ Views Left (09/29/2025 3:20 PM EST) Anatomical Region Laterality Modality Upper Extremities, Shoulder Left Radi ographic Imaging 09/29/2025 3:20 PM EST Narrative 09/29/2025 3:41 PM EST [address] [address] XRay Report Signed Patient: Charbel Delgado MR#: [id number] : 1970 Acct:[id number] Age/Sex: 55 / M ADM Date: 09/29/25 Loc: HO.ED Attending Dr: Ordering Physician: Jones Mosher PA-C Date of Service: 09/29/25 Procedure(s): XR shoulder LT min 2V Accession Number(s): [id number] cc: Jones Mosher PA-C; [facility] Reason for Exam: pain, unsure if he [...] by: Elias Smith MD 09/29/2025 03:38 PM [facility] Dictated By: Elias Smith MD Signed By: <Electronically signed by Elias Smith MD in OV> 09/29/25 1538 DD/ 1520 TD/TT: 09/29/25 1526 Executive Assistant To General Counsel: Procedure Note Donotuseinterpreter, Image - 09/29/[address] [address] XRay Report Signed Patient: Rod DelgadoR#: [id number] : 1970Acct:[id number] Age/Sex: 55 / MADM Date: 09/29/25 Loc: HO.ED Attending Dr: Ordering Physician: Jones Mosher PA-C Date of Service: 09/29/25 Procedure(s): XR shoulder LT min 2V Accession Number(s): [id number] cc: Jones Mosher PA-C; [facility] Reason for Exam: pain, unsure if he [...] Elias Smith MD 09/29/2025 03:38 PM EST Dictated By: Elias Smith MD Signed By: <Electronically signed by Elias Smith MD in OV> 09/29/25 1538 DD/ 1520 TD/TT: 09/29/25 1526 Executive Assistant To General Counsel: [facility] External Provider IMG XR PROCEDURES Final Result * (ABNORMAL) VENOUS BLOOD GAS (09/29/2025 2:53 PM EST) VBG pH 7.34 7.32 - 7.43 [facility] Comment:METER #: [id number] additional_comment: Cb bdaweh VBG PCO2 27 mmHg [facility] Comment:METER #: [id number] additional_comment: Cb bdaweh VBG PO2 74 mmHg [facility] Comment:METER #: [id number] additional_comment: Cb bdaweh VBG Base Excess -9.0 mmol/L [facility] Comment:METER #: [id number] additional_comment: Cb bdaweh VBG HCO3 15(L) 22 - 26 mmol/L [facility] Comment:METER #: [id number] additional_comment: Cb bdaweh O2 Sat, Demetrio 90.0 % [facility] Comment:METER #: [id number] additional_comment: Cb bdaweh 09/29/2025 2:53 PM EST 09/29/2025 2:56 PM EST Generic External Data Provider LAB BLOOD ORDERAB LES Final Result Performing Organization Address [facility] [[email or web address]] de Phone Number [facility] [address] [place] [phone] * Magnesium (09/29/2025 2:45 PM EST) [facility] Magnesium 1.9 1.6 - 2.6 mg/dL [facility] 09/29/2025 2:45 PM EST 09/29/2025 2:50 PM EST Generic External Data Provider LAB BLOOD ORDERAB LES Final Result Performing Organization Address [facility] Phone Number [facility] [address] [place] [phone] * (ABNORMAL) Comprehensive Metabolic Panel (09/29/2025 2:45 PM EST) Pathologist [facility] Sodium 140 135 - 145 mmol/L [facility] Potassium 3.8 3.3 - 5.1 mmol/L [facility] Chloride 111(H) 96 - 108 mmol/L [facility] Carbon Dioxide 16(L) 22 - 29 mmol/L [facility] Anion Gap 17 12 - 20 [facility] Urea Nitrogen (BUN) 15 9 - 16 mg/dL [facility] Creatinine, Serum 0.87 0.5 - 1.4 mg/dL [facility] Creatinine Clr Calc Pharmacy 76.0 [facility] Comment:eGFR (calculated fro m the MDRD study equation) and eCrCl(calculated from the Cockcroft-Gault equation) are based ondifferent parameters and may not yield comparable results.If eCrCl result is absurd, please check patient'sheight/weight. Estimated Glomerular Filt Rate >60 [facility] Comment:Chronic Kidney Disea se: Estimated GFR < 60 mL/min/1.94x2Yrabiu Kidney Disease: Estimated GFR < 15 mL/min/1.73m2 Glucose 107 60 - 115 mg/dL [facility] Calcium 8.7 8.4 - 10.2 mg/dL [facility] Bilirubin, Total 0.5 0.0 - 1.0 mg/dL [facility] Aspartate Amino Transferase 43(H) 5 - 37 U/L [facility] Alanine Aminotransferase 12 0 - 40 U/L [facility] Total Protein 8.0 6.5 - 8.0 g/dL [facility] Albumin Level 3.7 3.5 - 5.0 g/dL [facility] Alkaline Phosphatase 111 39 - 117 U/L [facility] 09/29/2025 2:45 PM EST 09/29/2025 2:50 PM EST Generic External Data Provider LAB BLOOD ORDERAB LES Final Result Performing Organization Address [facility] Co de Phone Number [facility] [address] [place] [phone] * (ABNORMAL) Ethanol (09/29/2025 2:45 PM EST) ETHANOL (MG/DL) IN SER/PLAS 401(HH) mg/dL [facility] Comment:Serum/plasma ethanol results are to be used formedical/treatment purposes only. 09/29/2025 2:45 PM EST 09/29/2025 2:50 PM EST Generic External Data Provider LAB BLOOD ORDERAB LES Final Result Performing Organization Address [facility] Co de Phone Number [facility] [address] [place] [phone] * (ABNORMAL) CBC auto differential (09/29/2025 2:45 PM EST) Pathologist [facility] White Blood Count 6.1 4.8 - 10.8 X10*3/uL [facility] Red Blood Count 3.55(L) 4.60 - 5.80 X10*6/uL [facility] Hemoglobin 10.8(L) 14.0 - 18.0 g/dl [facility] Hematocrit 33.4(L) 42.0 - 52.0 % [facility] Mean Corpuscular Volume 94.1 80.0 - 98.0 fL [facility] Mean Corpuscular Hemoglobin 30.4 27.0 - 33.0 pg [facility] Mean Corpuscular HGB Conc 32.3 31.0 - 36.0 g/dl [facility] Red Cell Distribution Width 16.1(H) 11.0 - 16.0 % [facility] Platelet Count 73(L) 160 - 400 X10*3/uL [facility] Mean Platelet Volume 12.4 9.4 - 12.4 fL [facility] Neutrophils Percent Auto 76.4(H) 45 - 73 % [facility] Imm Gran Pct Auto 0.5(H) 0.0 - 0.4 % [facility] Lymphocytes Percent Auto 11.7(L) 20 - 40 % [facility] Monocytes Percent Auto 10.0 2 - 11 % [facility] Eosinophils Percent Auto 0.2 0 - 4 % [facility] Basophils Percent Auto 1.2 0 - 2 % [facility] NRBC Pct Auto 0.0 0.0 - 0.2 /100WBC [facility] Neutrophils Absolute Auto 4.6 2.0 - 8.3 x10*3/uL [facility] Imm Gran Abs Auto 0.03 0.00 - 0.03 X10*3/uL [facility] Lymphocytes Absolute Auto 0.7(L) 1.2 - 4.9 X10*3/uL [facility] Monocytes Absolute Auto 0.6 0.1 - 1.2 X10*3/uL [facility] Eosinophils Absolute Auto 0.0 0.0 - 0.4 X10*3/uL [facility] Basophils Absolute Auto 0.1 0.0 - 0.2 X10*3/uL [facility] NRBC Abs Auto 0.000 0.0 - 0.012 X10*3/uL [facility] 09/29/2025 2:45 PM EST 09/29/2025 2:50 PM EST us Generic External Data Provider LAB BLOOD ORDERAB LES Final Result Performing Organization Address City/State/[facility] Co de Phone Number [facility] [address] [place] [phone] documented in this encounter Visit Diagnoses Not on filedocumented in this encounter Care Teams Layer Off Relationship Specialty Start Date End Date Charbel Calles RN [address] [place] [address] Registered Nurse Family Medicine 09/11/25 Conor Vidal 09/11/25 documented as of this encounter
--- OUTSIDE RECORDS SUMMARY | 2025-09-30 04:37 | XMS_ITS | Encounter Summary ---
Author Organization [employer] Address [address] [place] [address] [address] [place] [address] Care Team Providers Care Fats And Oils Loader Name Role Phone Charbel Calles RN Unavailable [phone] Conor Vidal Unavailable Encounter Details Date Type Department Care Team ([facility] st Contact Info) Description 09/16/2025 Results Follow-Up [facility] Information Management [address] [place] [address] External Provider, [facility] XR Chest 1 View Social History Tobacco [...] on filedocumented in this encounter Care Teams Fats And Oils Loader Relationship Specialty Start Date End Date Charbel Calles RN [address] [place] [address] Registered Nurse Family Medicine 09/11/25 Conor Vidal 09/11/25 documented as of this encounter
--- OUTSIDE RECORDS SUMMARY | 2025-09-30 04:37 | XMS_ITS | Encounter Summary ---
Author Organization [facility] Address [address] [facility] [address] [place] [address] Phone Care Team Providers Care Java J2Ee Application Developer Name Role Phone [facility], [facility] Primary Care Provider Pcp, Unknown Unavailable Unavailable Encounter Details Date Type Department Care Team (Late st Contact Info) Description 01/04/2024 Transcribe Orders [facility] [address] [address] Missy Miranda PA [address] [place] [id number] [email or web address] Need for hepatitis C screening test (Primary [...] EST) FERRITIN 168 30 - 400 ug/L [facility] Blood 01/04/2024 9:22 AM EST 01/04/2024 9:53 AM EST Missy WALLACE LAB BLOOD BKR ORDERABLES Final Result Performing Organization Address City/[facility]/ZIP Co de Phone Number [address] [address] * (ABNORMAL) PT-INR (01/04/2024 9:22 AM EST) Pathologist [facility] PT 15.9(H) 10.2 - 12.9 sec [facility] INR 1.4(H) 0.9 - 1.1 [facility] Comment:Therapeutic range fo r oral Vitamin K antagonists: 2.0-3.5 Blood 01/04/2024 9:22 AM EST 01/04/2024 9:53 AM EST Missy WALLACE LAB BLOOD BKR ORDERABLES Final Result Performing Organization Address City/[facility]/ZIP Co de Phone Number [address] [address] * Iron and iron binding capacity (01/04/2024 9:22 AM EST) Pathologist [facility] IRON 81 45 - 160 ug/dL [facility] IRON BINDING CAPACITY 326 228 - 428 ug/dL [facility] TRANSFERRIN SATURAT. 25 20 - 55 % [facility] Blood 01/04/2024 9:22 AM EST 01/04/2024 9:53 AM EST Missy WALLACE LAB BLOOD BKR ORDERABLES Final Result Performing Organization Address City/[facility]/ZIP Co de Phone Number [address] [address] * Lipase (01/04/2024 9:22 AM EST) Pathologist [facility] LIPASE 35 16 - 63 U/L [facility] Blood 01/04/2024 9:22 AM EST 01/04/2024 9:53 AM EST Missy WALLACE LAB BLOOD BKR ORDERABLES Final Result Performing Organization Address [facility]/ZIP Co de Phone Number [address] [address] * Hepatitis C antibody, qualitative (01/04/2024 9:22 AM EST) Pathologist [facility] HCV NON-REACTIV E NON-REACTI VE [facility] Blood 01/04/2024 9:22 AM EST 01/04/2024 9:53 AM EST Missy WALLACE LAB BLOOD BKR ORDERABLES Final Result Performing Organization Address [facility] Co de Phone Number [address] [address] * Hepatitis B surface antibody (01/04/2024 9:22 AM EST) Pathologist [facility] HBV SURFACE ANTIBODY Negative [facility] Comment: Unvaccinated: Negative Vaccinated: Positive Blood 01/04/2024 9:22 AM EST 01/04/2024 9:53 AM EST Missy WALLACE LAB BLOOD BKR ORDERABLES Final Result Performing Organization Address City/[facility]/ZIP Co de Phone Number [address] [address] * Hepatitis B surface antigen (01/04/2024 9:22 AM EST) HBV SURFACE ANTIGEN NON-REACTI VE NON-REACTI VE [facility] Blood 01/04/2024 9:22 AM EST 01/04/2024 9:53 AM EST Missy WALLACE LAB BLOOD BKR ORDERABLES Final Result Performing Organization Address [facility] Co de Phone Number [address] [address] * Hepatitis B core antibody, total (01/04/2024 9:22 AM EST) HEP B CORE AB, TOT NON-REACTI VE NON-REACTI VE [facility] Blood 01/04/2024 9:22 AM EST 01/04/2024 9:53 AM EST Missy WALLACE LAB BLOOD BKR ORDERABLES Final Result Performing Organization Address [facility] Co de Phone Number [address] [address] * HEPATITIS A ANTIBODY, TOTAL (01/04/2024 9:22 AM EST) HAV TOTAL AB NON-REACTI VE NON-REACTI VE [facility] Blood 01/04/2024 9:22 AM EST 01/04/2024 9:53 AM EST Missy WALLACE LAB BLOOD BKR ORDERABLES Final Result Performing Organization Address City/[facility]/ZIP Co de Phone Number [address] [address] * (ABNORMAL) GGT (Gamma glutamyl transferase) (01/04/2024 9:22 AM EST) Pathologist [facility] GGT 54(H) 11 - 51 U/L [facility] Blood 01/04/2024 9:22 AM EST 01/04/2024 9:53 AM EST Missy WALLACE LAB BLOOD BKR ORDERABLES Final Result [address] [address] * C-Reactive Protein (01/04/2024 9:22 AM EST) [facility] C REACTIVE PROTEIN <3.0 0.0 - 4.0 mg/L [facility] Blood 01/04/2024 9:22 AM EST 01/04/2024 9:53 AM EST Missy WALLACE LAB BLOOD BKR ORDERABLES Final Result [address] [address] * (ABNORMAL) Comprehensive metabolic panel (01/04/2024 9:22 AM EST) Pathologist [facility] SODIUM 137 133 - 146 mmol/L [facility] POTASSIUM 4.5 3.3 - 5.1 mmol/L [facility] CHLORIDE 105 96 - 108 mmol/L [facility] CO2 22 21 - 35 mmol/L [facility] BUN 14 6 - 19 mg/dL [facility] CREATININE 0.80 0.5 - 1.5 mg/dL [facility] GLUCOSE 104(H) 70 - 99 mg/dL [facility] ALBUMIN 4.1 3.9 - 4.8 g/dL [facility] TOTAL PROTEIN 8.1(H) 6.5 - 8.0 g/dL [facility] CALCIUM 10.4(H) 8.4 - 10.3 mg/dL [facility] ALKALINE PHOSPHATASE 118(H) 39 - 117 U/L [facility] TOTAL BILIRUBIN 0.6 0.0 - 1.2 mg/dL [facility] AST 25 0 - 37 U/L [facility] ALT 7 0 - 40 U/L [facility] GLOBULIN 4.0 1 - 4.8 g/dL [facility] EGFR 105 >59 mL/min/1.7 3m2 [facility] Comment:Estimated glomerular filtration rate calculated using the CKD-EPI refit equation. ANION GAP 15 10 - 20 mmol/L [facility] Blood 01/04/2024 9:22 AM EST 01/04/2024 9:53 AM EST Missy WALLACE LAB BLOOD BKR ORDERABLES Final Result [address] [address] * (ABNORMAL) CBC and differential (01/04/2024 9:22 AM EST) WBC 3.17(L) 4.00 - 11.00 K/uL [facility] RBC 3.41(L) 4.23 - 5.82 M/uL [facility] HGB 10.7(L) 13.4 - 17.5 g/dL [facility] HCT 33.8(L) 37.0 - 51.0 % [facility] PLT 64(L) 140 - 430 K/uL [facility] Comment:Consistent with prev ious result. MCV 99.1(H) 78.0 - 97.0 fL [facility] MCH 31.4 25.0 - 33.0 pg [facility] MCHC 31.7(L) 32.0 - 36.0 g/dL [facility] RDW 13.0 11.0 - 15.0 % [facility] MPV 13.2(H) 8.4 - 12.8 fl [facility] DIFF METHOD Auto [facility] NEUTS 57.2 43.0 - 75.0 % [facility] LYMPHS 24.9 18.2 - 47.4 % [facility] MONOS 12.0(H) 4.00 - 11.00 % [facility] EOS 4.7 0.0 - 8.0 % [facility] BASOS 0.9 0.0 - 2.0 % [facility] Granulocytes, immature (%) 0.3 0.0 - 0.9 % [facility] ABSOLUTE NEUTS 1.81 1.80 - 7.70 K/uL [facility] ABSOLUTE LYMPHS 0.79(L) 1.00 - 3.10 K/uL [facility] ABSOLUTE MONOS 0.38 0.20 - 0.80 K/uL [facility] ABSOLUTE EOS 0.15 0.00 - 0.80 K/uL [facility] ABSOLUTE BASOS 0.03 0.00 - 0.09 K/uL [facility] Granulocytes, immature 0.01 0.00 - 0.05 K/uL [facility] Blood 01/04/2024 9:22 AM EST 01/04/2024 9:53 AM EST Missy Miranda [place] LAB BLOOD BKR ORDERABLES Final Result [address] [address] * (ABNORMAL) Immunoglobulin A (01/04/2024 9:22 AM EST) IgA 436(H) 70 - 400 mg/dL [facility] Blood 01/04/2024 9:22 AM EST 01/04/2024 9:53 AM EST [facility] ORDERAB[facility] Final Result [address] [address] * Tissue transglutaminase IgA (01/04/2024 9:22 AM EST) TTG IGA ANTIBODY 1.9 <4.0 (Negative) U/mL [facility] Blood 01/04/2024 9:22 AM EST 01/04/2024 9:53 AM EST Missy WALLACE LAB BLOOD BKR ORDERABLES Final Result [facility] [address] [place] [address] * Smooth Muscle Antibody (01/04/2024 9:22 AM EST) SMOOTH MUSCLE AB POSITIVE AT 1:20 [facility] Comment: Performing Physician, Max Jimenez M.D., [id number] Normal: Negative at 1:20 Blood 01/04/2024 9:22 AM EST 01/04/2024 9:53 AM EST Missy WALLACE LAB BLOOD ORDERABLES Fin al Result Performing Organization Address [facility] Co de Phone Number [address] [address] * Ceruloplasmin (01/04/2024 9:22 AM EST) CERULOPLASMIN 31 20 - 60 mg/dL [facility] Blood 01/04/2024 9:22 AM EST 01/04/2024 9:53 AM EST Missy WALLACE LAB BLOOD ORDERABLES Fin al Result Performing Organization Address [facility] Co de Phone Number [address] [address] * (ABNORMAL) Antinuclear antibody (JERMAIN) (01/04/2024 9:22 AM EST) JERMAIN SCREEN ON HEP 2 Positive(A ) Negative [facility] Comment:An JERMAIN Titer has bee n reflexed. The results will follow. Blood 01/04/2024 9:22 AM EST 01/04/2024 9:53 AM EST Missy WALLACE LAB BLOOD BKR ORDERABLES Final Result [address] [address] * Anti-Mitochondrial Antibody (AMA) (01/04/2024 9:22 AM EST) MITOCHONDRIAL AB NEGATIVE AT 1:20 [facility] Comment: Performing Physician, Max Jimenez M.D., [id number] Normal: Negative at 1:20 Blood 01/04/2024 9:22 AM EST 01/04/2024 9:53 AM EST Missy WALLACE LAB BLOOD ORDERABLES Fin al Result Performing Organization Address [facility] Co de Phone Number [address] [address] * Amylase (01/04/2024 9:22 AM EST) Pathologist [facility] AMYLASE 86 28 - 100 U/L [facility] Blood 01/04/2024 9:22 AM EST 01/04/2024 9:53 AM EST Missy WALLACE LAB BLOOD BKR ORDERABLES Final Result Performing Organization Address [facility] Co de Phone Number [address] [address] * AFP (non-maternal specimens) (01/04/2024 9:22 AM EST) [facility] AFP (NON-MATERNAL) 4.7 <7.9 ng/mL [facility] Comment: Test Methodology Filipe [id number] Patient results determined by assays using different manufacturers or methods may not be comparable. Blood 01/04/2024 9:22 AM EST 01/04/2024 9:53 AM EST Missy WALLACE LAB BLOOD BKR ORDERABLES Final Result Performing Organization Address [facility] Co de Phone Number [address] [address] * Modvy-5-lhmrtxiuder phenotyping (01/04/2024 9:22 AM EST) ALPHA 1 ANTITRYPSIN 173 100 - 190 mg/dL [facility] LAB MED/[facility] [address] Comment: (NOTE) ADDITIONAL INFORMATION Method: Nephelometry A1A PHENOTYPE MM bands [facility] [address] Comment: (NOTE) A single M isoform is detected. In the context of a normal aamoa-3-kvqiwtxqldg concentration, this is consistent with an MM phenotype. ADDITIONAL INFORMATION Method: Isoelectric Focusing, This assay identifies the phenotype of the circulating xldxq-0-mmqtwkttjud (A1A) protein. If the patient is on replacement therapy or has been recently transfused, the phenotype will detect patient and replacement or transfused plasma A1A protein. This test also cannot detect a null allele which could be responsible for an A1A deficiency. Blood 01/04/2024 9:22 AM EST 01/04/2024 9:53 AM EST Missy WALLACE LAB BLOOD ORDERABLES [facility] al Result [facility] LAB MED/PATH [address] [place] [address] documented in this encounter Visit Diagnoses Diagnosis Need for hepatitis C screening test- Primary Special screening examination for other specified viral diseases Hepatic cirrhosis, unspecified hepatic cirrhosis type, unspecified whether ascites present Esophageal varices in alcoholic cirrhosis Esophageal varices without mention of bleeding documented in this encounter Care Teams Java J2Ee Application Developer Relationship Specialty Start Date End Date [facility] [address] [place] [address] PCP - General 10/07/23 Pcp, Unknown 10/07/23 documented as of this encounter Additional Source Comments The information contained in this document represents components of the legal health record. It is not the complete legal health record.[facility]
--- OUTSIDE RECORDS SUMMARY | 2025-09-30 04:38 | XMS_ITS | Encounter Summary ---
Author Organization [employer] Address [address] [place] [address] [place] [address] Care Team Providers Care Lacquer Polisher Name Role Phone Charbel Calles RN Unavailable [phone] Conor Vidal Unavailable Encounter Details Date Type Department Care Team (Late st Contact Info) Description 09/16/2025 Results Follow-Up [facility] Information Management [address] [place] [address] Provider, Generic External Data XR Chest 1 [...] on filedocumented in this encounter Care Teams Lacquer Polisher Relationship Specialty Start Date End Date Charbel Calles RN [address] [place] [address] Registered Nurse Family Medicine 09/11/25 Conor Vidal 09/11/25 documented as of this encounter
--- OUTSIDE RECORDS SUMMARY | 2025-09-30 04:38 | XMS_ITS ---
Author Organization [employer] Address [address] [place] [address] 7 [place] [address] Care Team Providers Care Gas Combustion Engineer Name Role Phone Charbel Calles RN Unavailable Conor Vidal Unavailable CHW Complex Status:Outreach In Progress (Enrolling) Start date:09/11/2025 Enrollment reason:ADT Feed Overview ED- Pt went to [facility] ED on 09/10/25. Case Team Name Relationship Phone Conor Vidal(Responsible Staff) [phone] Continued Care and Services Coordination
--- OUTSIDE RECORDS SUMMARY | 2025-09-30 04:39 | XMS_ITS | Clinical Summary ---
Author Organization [facility] Address [address] [place] [address] Phone Care Team Providers Care Truant Officer Name Role Phone [facility], Facility Primary Care Provider Pcp, Unknown [...] magnesia). Active monobasic and dibasic sodium phosphates ([address] ENEMA) 19-7 gram/[address] 1 [...] Patient presented with altered mental status from [facility] where he appeared more lethargic than [...] EST) SODIUM 137 133 - 146 mmol/L [facility] POTASSIUM 4.5 3.3 - 5.1 mmol/L [facility] CHLORIDE 105 96 - 108 mmol/L [facility] CO2 22 21 - 35 mmol/L [facility] BUN 14 6 - 19 mg/dL [facility] CREATININE 0.80 0.5 - 1.5 mg/dL [facility] GLUCOSE 104(H) 70 - 99 mg/dL [facility] ALBUMIN 4.1 3.9 - 4.8 g/dL [facility] TOTAL PROTEIN 8.1(H) 6.5 - 8.0 g/dL [facility] CALCIUM 10.4(H) 8.4 - 10.3 mg/dL [facility] ALKALINE PHOSPHATASE 118(H) 39 - 117 U/L [facility] TOTAL BILIRUBIN 0.6 0.0 - 1.2 mg/dL [facility] AST 25 0 - 37 U/L [facility] ALT 7 0 - 40 U/L [facility] GLOBULIN 4.0 1 - 4.8 g/dL [facility] EGFR 105 >59 mL/min/1.7 3m2 [facility] Comment:Estimated glomerular filtration rate calculated using the CKD-EPI refit equation. ANION GAP 15 10 - 20 mmol/L [facility] Blood 01/04/2024 9:22 AM EST 01/04/2024 9:53 AM EST Missy WALLACE LAB BLOOD BKR ORDERABLES Final Result Performing Organization Address City/[facility]/ZIP Co de Phone Number [address] [address] * Hepatitis C antibody, qualitative (01/04/2024 9:22 AM EST) HCV NON-REACTIV E NON-REACTI VE [facility] Blood 01/04/2024 9:22 AM EST 01/04/2024 9:53 AM EST Missy WALLACE LAB BLOOD BKR ORDERABLES Final Result Performing Organization Address [facility]/ZIP Co de Phone Number [address] [address] from Last 3 Months or Most Recently Relevant to Health Maintenance [place] [address] [place] [address] [employer] [facility] [place] [place] [address] [place] [address] [place] [address] [place] [address] [employer] [facility] [employer] [facility] [employer] Advance Directives For more information, please contact: [phone] (9AM - 5PM [facility], Monday-Monday) Documents on File Type Date Recorded Patient Janitor Cleaner Expl anation Healthcare Proxy 10/09/2023 10:49 [...] Agents on File Name Relationship Healthcare Agent [facility] Communication Guillermo Lobato .Primary Health Care Agent (Proxy form on file) Care Teams Truant Officer Relationship Specialty Start Date End Date [facility] [address] [place] [address] PCP - General 10/07/23 Pcp, Unknown 10/07/23 Additional Source Comments The information contained in this document represents components of the legal health record. It is not the complete legal health record.[facility]
--- OUTSIDE RECORDS SUMMARY | 2025-09-30 04:39 | XMS_ITS ---
Author Organization [employer] Address [address] [place] [address] 7 [place] [address] Care Team Providers Care Forensic Pathologist Name Role Phone Charbel Calles RN Unavailable Conor Vidal Unavailable CM Complex Status:Outreach In Progress (Enrolling) Start date:09/11/2025 Enrollment reason:ADT Feed Overview ED- Pt went to [facility] ED on 09/10/25. Case Team Name Relationship Phone Charbel Calles RN(Responsible Staff) Registered [facility] [phone] Continued Care and Services Coordination
--- OUTSIDE RECORDS SUMMARY | 2025-09-30 04:40 | XMS_ITS | Encounter Summary ---
Author Organization [employer] Address [address] [place] [address] 7 [place] [address] Care Team Providers Care Flexographic Printing Press Operator Name Role Phone Charbel Calles RN Unavailable [phone] Conor Vidal Unavailable Encounter Details Date Type Department Care Team (Late st Contact Info) Description 09/27/2025 Orders Only [facility] External Provider, [facility] Social History Tobacco Use [...] AM EST Narrative 09/28/2025 4:30 AM EST [address] [address] XRay Report Signed Patient: Charbel Delgado MR#: [id number] : 1970 Acct:[id number] Age/Sex: 55 / M ADM Date: 09/27/25 Loc: .ED Attending Dr: Ordering Physician: Alexandria Sweeney MD Date of Service: 09/28/25 Procedure(s): XR chest 1V Accession Number(s): [id number] cc: [facility]; Alexandria Sweeney MD Reason for Exam: [...] in OV> 09/28/25428 DD/ 7 TD/TT: 09/28/25427 Script Girl: Procedure Note Donotuseinterpreter, Image - 09/28/[address] [address] XRay Report Signed Patient: Isaias Delgado#: [id number] : 1970Acct:[id number] Age/Sex: 55 / MADM Date: 09/27/25 Loc: .ED Attending Dr: Ordering Physician: Alexandria Sweeney MD Date of Service: 09/28/25 Procedure(s): XR chest 1V Accession Number(s): [id number] cc: [facility]; Alexandria Sweeney MD Reason for Exam: [...] in OV> 09/28/25428 DD/ 7 TD/TT: 09/28/25427 Script Girl: [facility] External Provider IMG XR PROCEDURES Final Result documented in this encounter Visit Diagnoses Not on filedocumented in this encounter Care Teams Flexographic Printing Press Operator Relationship Specialty Start Date End Date Charbel Calles RN [address] [place] [address] Registered Nurse Family Medicine 09/11/25 Conor Vidal 09/11/25 documented as of this encounter
--- OUTSIDE RECORDS SUMMARY | 2025-09-30 04:40 | XMS_ITS | Encounter Summary ---
Author Organization [employer] Address [address] [place] [address] [place] [address] Care Team Providers Care Commercial Sales Consultant Name Role Phone Charbel Calles RN Unavailable [phone] Conor Vidal Unavailable Encounter Details Date Type Department Care Team ([facility] st Contact Info) Description 09/03/2025 Results Follow-Up [facility] Information Management [address] [place] [address] Provider, Generic External Data XR Chest 2 [...] on filedocumented in this encounter Care Teams Commercial Sales Consultant Relationship Specialty Start Date End Date Charbel Calles RN [address] [place] [address] Registered Nurse Family Medicine 09/11/25 Conor Vidal 09/11/25 documented as of this encounter
--- OUTSIDE RECORDS SUMMARY | 2025-09-30 04:40 | XMS_ITS | Encounter Summary ---
Author Organization [facility] Address [address] [place] [address] 7 [place] [address] Care Team Providers Care Locomotive Engineer Electric Name Role Phone Charbel Calles RN Unavailable [phone] Conor Vidal Unavailable Encounter Details Date [...] (09/28/2025 12:13 AM EST) Blood Type BP [facility] Antibody Screen NEGATIVE [facility] 09/28/2025 12:1 3 AM EST 09/28/2025 12:16 AM EST us Generic External Data Provider LAB BLOOD BANK TE ST ORDERABLES Final Result [facility] [address] [place] [address] [phone] * (ABNORMAL) CBC auto differential (09/28/2025 12:13 AM EST) White Blood Count 5.6 4.8 - 10.8 X10*3/uL [facility] Red Blood Count 3.53(L) 4.60 - 5.80 X10*6/uL [facility] Hemoglobin 10.5(L) 14.0 - 18.0 g/dl [facility] Hematocrit 32.1(L) 42.0 - 52.0 % [facility] Mean Corpuscular Volume 90.9 80.0 - 98.0 fL [facility] Mean Corpuscular Hemoglobin 29.7 27.0 - 33.0 pg [facility] Mean Corpuscular HGB Conc 32.7 31.0 - 36.0 g/dl [facility] Red Cell Distribution Width 16.2(H) 11.0 - 16.0 % [facility] Platelet Count 59(L) 160 - 400 X10*3/uL [facility] Mean Platelet Volume 11.8 9.4 - 12.4 fL [facility] Neutrophils Percent Auto 63.5 45 - 73 % [facility] Imm Gran Pct Auto 1.2(H) 0.0 - 0.4 % [facility] Lymphocytes Percent Auto 24.4 20 - 40 % [facility] Monocytes Percent Auto 7.0 2 - 11 % [facility] Eosinophils Percent Auto 2.1 0 - 4 % [facility] Basophils Percent Auto 1.8 0 - 2 % [facility] NRBC Pct Auto 0.0 0.0 - 0.2 /100WBC [facility] Neutrophils Absolute Auto 3.6 2.0 - 8.3 x10*3/uL [facility] Imm Gran Abs Auto 0.07(H) 0.00 - 0.03 X10*3/uL [facility] Lymphocytes Absolute Auto 1.4 1.2 - 4.9 X10*3/uL [facility] Monocytes Absolute Auto 0.4 0.1 - 1.2 X10*3/uL [facility] Eosinophils Absolute Auto 0.1 0.0 - 0.4 X10*3/uL [facility] Basophils Absolute Auto 0.1 0.0 - 0.2 X10*3/uL [facility] NRBC Abs Auto 0.000 0.0 - 0.012 X10*3/uL [facility] 09/28/2025 12:1 3 AM EST 09/28/2025 12:16 AM EST us Generic External Data Provider LAB BLOOD ORDERAB LES Final Result [facility] [address] [place] [address] [phone] * (ABNORMAL) Basic Metabolic Panel (09/28/2025 12:13 AM EST) Sodium 137 135 - 145 mmol/L [facility] Potassium 3.5 3.3 - 5.1 mmol/L [facility] Chloride 111(H) 96 - 108 mmol/L [facility] Carbon Dioxide 15(L) 22 - 29 mmol/L [facility] Anion Gap 15 12 - 20 [facility] Urea Nitrogen (BUN) 19(H) 9 - 16 mg/dL [facility] Creatinine, Serum 0.86 0.5 - 1.4 mg/dL [facility] Creatinine Clr Calc Pharmacy 85.0 [facility] Comment:eGFR (calculated fro m the MDRD study equation) and eCrCl(calculated from the Cockcroft-Gault equation) are based ondifferent parameters and may not yield comparable results.If eCrCl result is absurd, please check patient'sheight/weight. Estimated Glomerular Filt Rate >60 [facility] Comment:Chronic Kidney Disea se: Estimated GFR < 60 mL/min/1.90y1Eltwhq Kidney Disease: Estimated GFR < 15 mL/min/1.73m2 Glucose 102 60 - 115 mg/dL [facility] Calcium 8.6 8.4 - 10.2 mg/dL [facility] 09/28/2025 12:1 3 AM EST 09/28/2025 12:16 AM EST us Generic External Data Provider LAB BLOOD ORDERAB LES Final Result Performing Organization Address City/[facility] Co de Phone Number [facility] [address] [place] [address] [phone] * (ABNORMAL) Hepatic Function Panel (09/28/2025 12:13 AM EST) Bilirubin, Total 0.3 0.0 - 1.0 mg/dL [facility] Bilirubin, Direct 0.2 0.0 - 0.5 mg/dL [facility] Aspartate Amino Transferase 38(H) 5 - 37 U/L [facility] Alanine Aminotransferase 12 0 - 40 U/L [facility] Total Protein 7.8 6.5 - 8.0 g/dL [facility] Albumin Level 3.7 3.5 - 5.0 g/dL [facility] Alkaline Phosphatase 115 39 - 117 U/L [facility] 09/28/2025 12:1 3 AM EST 09/28/2025 12:16 AM EST us Generic External Data Provider LAB BLOOD ORDERAB LES Final Result Performing Organization Address City/[facility] Co de Phone Number [facility] [address] [place] [address] [phone] documented in this encounter Visit Diagnoses Not on filedocumented in this encounter Care Teams Locomotive Engineer Electric Relationship Specialty Start Date End Date Charbel Calles RN [address] [place] [phone] Registered Nurse Family Medicine 09/11/25 Conor Vidal 09/11/25 documented as of this encounter
[2025-09-30 05:48] VITALS: BP 107/46; PULSE 77; RESP 16; TEMP 37.2; O2SAT 92
[2025-09-30 07:35] VITALS: BP 110/57; PULSE 75; RESP 16; TEMP 37.1; O2SAT 82
--- NOTE | 2025-09-30 08:20 | PC.NURSE ---
Attempted to titrate patient to RA O2 88% reapplied O2 2L 95% titrated to 1L 93% Patient denies SOB at this time
--- NOTE | 2025-09-30 10:11 | MHC.EDTECH ---
Patient was taken off oxygen desaturated to 87% in room air. Oxygen was reapplied at 1.5L, and his saturation improved to 91%.
--- NOTE | 2025-09-30 10:30 | PC.NURSE ---
Patient O2 went down to 89% on 1L NC Increased O2 to 2L NC reassessed O2 90-91%
--- NOTE | 2025-09-30 10:35 | MHC.CM.ED ---
Addendum entered by Mimi Holden 09/30/25 13:29: No bed offers at this time. Referral broadcasted within 50 miles. Addendum entered by Mimi Holden 09/30/25 13:05: [facility] is unable [facility] offer a bed at this time. Referral broadcasted locally for any bed availability. Original Note: Received case management consult from Dr Del Rosario. Patient is well known to ER due to freq ER visits. Patient is homeless. Requires oxygen at baseline. Patient was [facility]. Patient left AMA from [facility] on 09/26. Patient has been to the ER 4 times since. Met with patient to discuss d/c planning. Patient is not sure if he wants to return to SNF. Agreeable to CM making referrals to see if any facilities would be willing to offer a bed. Patient will also require 0 CIWA for at least 24 hours. ETOH level was 401 upon admission to the ER. Dr Del Rosario aware. Continue to monitor for d/c needs.
--- NOTE | 2025-09-30 13:55 | PHA.MEDREC ---
Addendum entered by Solo Pope RPh 09/30/25 14:05: med rec reviewed Original Note: Pharmacy Consult ? Medication Reconciliation Pharmacy has completed the medication reconciliation. Spoke with pt and he states he was taking some medications a while ago but has not taken anything in a while .
[2025-09-30 14:00] VITALS: BP 107/60; PULSE 95; RESP 16; TEMP 36.7; O2SAT 91
--- NOTE | 2025-09-30 14:22 | MHC.CM.ED ---
[facility] in [place], [facility] in [place] and [facility] are all willing to offer a bed. Met with patient to discuss SNF options. Patient is not interested in going that far and would prefer to d/c to the street. Dr Del Rosario made aware. Continue to monitor for d/c needs.
[2025-09-30 15:21] VITALS: BP 110/62; PULSE 93; RESP 14; TEMP 36.6; O2SAT 91
== END 2025-09-30 15:21 | disposition left against medical advice (07) ==
PROVIDERS: Emergency Provider Emergency Medicine
DX: F10.129 Alcohol abuse with intoxication, unspecified (principal); R09.02 Hypoxemia; M25.512 Pain in left shoulder; Y90.8 Blood alcohol level of 240 mg/100 ml or more; Z51.81 Encounter for therapeutic drug level monitoring; Z79.899 Other long term (current) drug therapy
CPT/HCPCS: 36415; 73030; 80053; 80307; 82803; 83735; 85025; 99284

== ENCOUNTER → 2025-09-29 14:58 | Outpatient (BNV) | payer MEDICAID, SELFPAY | PROVIDERS: Emergency Provider Emergency Medicine; Visit Provider Radiology Diagnostic Radiology | DX: M19.012 Primary osteoarthritis, left shoulder (principal); M85.812 Other specified disorders of bone density and structure, left shoulder | CPT/HCPCS: 73030 ==

== ENCOUNTER 2025-09-30 18:53 | Emergency (ER) | payer MEDICAID, SELFPAY ==
[2025-09-30 19:20] VITALS: BP 111/60; PULSE 82; RESP 16; TEMP 36.4; O2SAT 79; BMI 25.7
[2025-09-30 19:24] VITALS: BP 124/70; PULSE 81; O2SAT 83
--- NOTE | 2025-09-30 20:08 | ED.ALCOHOL ---
HPI - Alcohol General Chief Complaint: ETOH/Substance Use Stated Complaint: Back pain Time Seen by Provider: 09/30/25 19:44 Source: patient and EMS Mode of arrival: EMS Limitations: no limitations History of Present Illness ED Provider: Dr. Alexandria Sweeney HPI narrative: Patient comes to the emergency room by ambulance. Patient complaining of back pain and foot pain. Patient states that he has been drinking alcohol. Of note, this is the patient's 79th visit in 1 year, from September 2024 to 09/30/2025 Related Data Home Medications ?Medication ?Instructions ?Recorded ?Confirmed No Known Home Meds 09/30/25 09/30/25 Allergies Allergy/AdvReac Type Severity Reaction Status Date / Time No Known Allergies (No Known Allergy Verified 09/30/25 19:21 Allergies*) Review of Systems Review of Systems: Constitutional : No Weight loss, No Fever, No Chills, No Night Sweats, No Fatigue, No Malaise ENT/Mouth : No Hearing loss, No Ear Pain, No Nasal Congestion, No Sinus Pain, No Hoarseness, No sore throat, No Rhinorrhea, No Swallowing Difficulty Eyes: No Eye Pain, No Swelling, No Redness, No Foreign Body, No Discharge, No Vision Changes Cardiovascular : No Chest Pain, No SOB, No Dyspnea on Exertion, No Orthopnea, No Edema, No Palpitations Respiratory : No Cough, No Sputum, No Wheezing, No Smoke Exposure, No Dyspnea Gastrointestinal : No Nausea, No Vomiting, No Diarrhea, No Constipation, No abdominal Pain, No Hematochezia, No Melena Genitourinary : no irregular bleeding, No Dysuria, No Urinary Frequency, No Hematuria, No Urinary Incontinence, No Urgency, No Flank Pain, No Urinary Flow Changes, No Hesitancy Musculoskeletal : Complaining of chronic back pain and bilateral foot pain No Myalgias, No Joint Swelling Skin : No Skin Lesions, No rash Neuro : No Weakness, No Numbness, No Paresthesias, No Loss of Consciousness, No Dizziness, No Headache Psych : No Anxiety/Panic, No Depression, No SI/HI/AH/VH, admits to drinking alcohol Heme/Lymph: No Bruising, No Bleeding,No Lymphadenopathy Endocrine : No Polyuria, No Polydipsia, No Temperature Intolerance PMFSH Past Medical History Medical History Hemorrhoids, internal, with bleeding Rectal bleeding Pancytopenia Alcohol withdrawal Alcohol use disorder, severe, dependence Pancytopenia Cirrhosis Hypomagnesemia Aspiration pneumonia Alcohol use disorder CHF (congestive heart failure) Alcohol abuse Acute hypoxemic respiratory failure Anemia Pneumonia Alcohol withdrawal syndrome Alcohol abuse Thrombocytopenia Esophageal varices Acute on chronic anemia Alcoholic liver disease Thrombocytopenia Malnutrition CHF (congestive heart failure) Anemia Thrombocytopenia Acute on chronic anemia CHF (congestive heart failure) Anemia Alcohol abuse Surgical History No history of previous surgery Social History Social History Household Members: None Household Members Other:: homeless Housing: Homeless Housing Other:: homeless Do you presently have visiting nurse or other home services: No Alcohol intake: current Alcohol intake frequency: 3 or more drinks per day Alcohol type: beer and hard liquor Comment: pt refuse to have staff remain in BR Patient Tobacco Use Status: Former Tobacco user Tobacco use type: Cigarette Second Hand Smoke Exposure: No Advance Directives: Yes Advance Directives on File: Yes Advance Directives Date on File: 07/13/23 Do you have a plan to hurt others: No Plan service: No Physical Exam ED Exam Exam: Appearance: Alert. Oriented X3. No acute distress. Seems intoxicated but still able to answer questions appropriately Eyes: Pupils equal, round and reactive to light. ENT: Pharynx normal. Neck: Normal inspection. Neck supple. No lymph nodes noted. No crepitus CVS: Normal heart rate and rhythm. Pulses normal. Normal S1 and S2 Respiratory: No respiratory distress. Breath sounds normal. No Wheezing. No rales Abdomen: Soft and nontender. No rigidity. No distention. Skin: Skin warm and dry. Normal skin color. Normal skin turgor. Extremities: No lower extremity edema. No Lacerations. No Rash Neuro: Oriented X 3. No motor deficit. No sensory deficit. Moving all extremities. No slurred speech. CN 2 through 12 grossly intact Psych: calm, cooperative, normal affect Vital Signs: Vital Signs - 24 hr 09/30/25 19:20 Temperature 97.5 F Pulse Rate 82 Respiratory Rate 16 Blood Pressure 111/60 Pulse Oximetry 79 L Oxygen Delivery Method Room Air BMI result Body Mass Index 25.7 Course Course Course Narrative: We will obtain labs. Patient was discharged from the hospital 3 hours prior to him arriving again intoxicated. It was discussed with the ED team and our case management manager, we will obtain a psych consult to determine patient's capacity. In the past, patient has been section 35 Patient usually comes in hypoxic, anywhere between high 70s to high 80s O2 on room air. Patient was recently taken to rehab, however, patient left AMA. Medical Decision Making Differential Diagnosis Differential Diagnoses: The differential diagnosis associated with the presentation includes (Alcohol diminished, alcohol intoxication, homeless) Admission/Observation Consideration of admission/observation: Escalation of care including admission/observation considered (Patient is waiting to be seen by the psych team to determine capacity.) Critical Care Time Critical Care Time Critical Care Time: Yes Total Critical Care Time: 35 Attestation: I have personally provided critical care time. Time includes review of lab data, radiology results, discussion with consultants, and monitoring for potential decompensation. Intervention performed as documented. Discharge Plan Discharge Clinical Impression: Alcohol intoxication Prescriptions: No Action No Known Home Meds Print Language: Guamanian
--- NOTE | 2025-09-30 20:11 | MHC.CM.ED ---
WEN aspoke with Dr. Del Rosario prior to patient discharge earlier today. Dr. Del Rosario has requested a psych consult for capacity if/when patient returns. Pt returned via ambulance at 1900. WEN requested psych for capacity. Dr. Sweeney will order. Pt will remain overnight for psych consult.
[2025-09-30 23:09] VITALS: BP 97/55; PULSE 81; RESP 16; TEMP 37.3; O2SAT 93
[2025-10-01 03:31] VITALS: BP 110/55; PULSE 67; RESP 14; TEMP 37.1; O2SAT 95
[2025-10-01 06:12] VITALS: BP 108/51; PULSE 67; RESP 18; TEMP 37.1; O2SAT 93
--- NOTE | 2025-10-01 06:13 | MHC.EDTECH ---
pt had pocket knife that was taken by security
--- NOTE | 2025-10-01 08:59 | PC.NURSE ---
Patient needs oxygen but refuses to stay. Got dressed and refused to stay. Patient states he's broke was not drinking.
[2025-10-01 09:01] VITALS: BP 108/51; PULSE 67; RESP 18; TEMP 37.1; O2SAT 93
--- OUTSIDE RECORDS SUMMARY | 2025-10-01 14:06 | XMS_ITS | Encounter Summary ---
Author Organization [facility] Address [address] [place] [phone] Phone Care Team Providers Care Jig Hand Name Role Phone [facility], [facility] Primary Care Provider Pcp, Unknown Unavailable Unavailable Encounter Details Date Type Department Care Team ([facility] st Contact Info) Description 10/31/2023 Procedure Pass [facility] Endoscopy Admitting Dept Virtual Department [address] [place] [phone] Social History Tobacco Use Types Packs/Day Years [...] on filedocumented in this encounter Care Teams Jig Hand Relationship Specialty Start Date End Date [facility] [address] [place] [address] PCP - General 10/07/23 Pcp, Unknown 10/07/23 documented as of this encounter Additional Source Comments The information contained in this document represents components of the legal health record. It is not the complete legal health record.[facility]
--- OUTSIDE RECORDS SUMMARY | 2025-10-01 14:06 | XMS_ITS | Clinical Summary ---
Author Organization [facility] Address [address] [place] [address] Phone Care Team Providers Care Stripping Cutter And Winder Name Role Phone [employer] Primary Care Provider Pcp, Unknown Unavailable [...] magnesia). Active monobasic and dibasic sodium phosphates (94331 ENEMA) 19-7 gram/[address] 1 [...] EST) SODIUM 137 133 - 146 mmol/L [facility] POTASSIUM 4.5 3.3 - 5.1 mmol/L [facility] CHLORIDE 105 96 - 108 mmol/L [facility] CO2 22 21 - 35 mmol/L [facility] BUN 14 6 - 19 mg/dL [facility] CREATININE 0.80 0.5 - 1.5 mg/dL [facility] GLUCOSE 104(H) 70 - 99 mg/dL [facility] ALBUMIN 4.1 3.9 - 4.8 g/dL [facility] TOTAL PROTEIN 8.1(H) 6.5 - 8.0 g/dL [facility] CALCIUM 10.4(H) 8.4 - 10.3 mg/dL [facility] ALKALINE PHOSPHATASE 118(H) 39 - 117 U/L [facility] TOTAL BILIRUBIN 0.6 0.0 - 1.2 mg/dL [facility] AST 25 0 - 37 U/L [facility] ALT 7 0 - 40 U/L [facility] GLOBULIN 4.0 1 - 4.8 g/dL [facility] EGFR 105 >59 mL/min/1.7 3m2 [facility] Comment:Estimated glomerular filtration rate calculated using the CKD-EPI refit equation. ANION GAP 15 10 - 20 mmol/L [facility] Blood 01/04/2024 9:22 AM EST 01/04/2024 9:53 AM EST Missy WALLACE LAB BLOOD BKR ORDERABLES Final Result Performing Organization Address City/[facility]/ZIP Co de Phone Number [address] [phone] * Hepatitis C antibody, qualitative (01/04/2024 9:22 AM EST) HCV NON-REACTIV E NON-REACTI VE [facility] Blood 01/04/2024 9:22 AM EST 01/04/2024 9:53 AM EST Missy WALLACE LAB BLOOD BKR ORDERABLES Final Result Performing Organization Address [facility]/ZIP Co de Phone Number [address] [phone] from Last 3 Months or Most Recently Relevant to Health Maintenance [place] [address] [employer] [facility] [address] [place] [address] [place] [address] [place] [address] [place] [address] C[employer] [facility] C3 [employer] [facility] C3 ACO Advance Directives For more information, please contact: [phone] (9AM - 5PM [facility], Monday-Monday) Documents on File Type Date Recorded Patient Prosthodontist Expl anation Healthcare Proxy 10/09/2023 10:49 AM [...] Agents on File Name Relationship Healthcare Agent [facility] Communication Guillermo Lobato .Primary Health Care Agent (Proxy form on file) Care Teams Stripping Cutter And Winder Relationship Specialty Start Date End Date [employer] [facility] [address] [place] [address] PCP - General 10/07/23 Pcp, Unknown 10/07/23 Additional Source Comments The information contained in this document represents components of the legal health record. It is not the complete legal health record.[facility]
--- OUTSIDE RECORDS SUMMARY | 2025-10-01 14:06 | XMS_ITS | Encounter Summary ---
Author Organization [facility] Address [address] [facility] [address] [place] [phone] Phone Care Team Providers Care Movie Actor Name Role Phone Elbert Hayward MD Primary Care Provider [facility], [facility] Primary Care Provider Pcp, Unknown Unavailable Unavailable Encounter Details Date Type Department Care Team (Late st Contact Info) Description 10/06/2023 Procedure Pass [facility], Ct Scan - [address] [address] Social History Tobacco Use Types Packs/Day Years [...] on filedocumented in this encounter Care Teams Movie Actor Relationship Specialty Start Date End Date Elbert Hayward MD PCP - General 05/13/14 10/06/23 [facility], MD Marya [address] [place] [address] PCP - General 10/07/23 Pcp, Unknown 10/07/23 documented as of this encounter Additional Source Comments The information contained in this document represents components of the legal health record. It is not the complete legal health record.[facility]
--- OUTSIDE RECORDS SUMMARY | 2025-10-01 14:07 | XMS_ITS | Encounter Summary ---
Author Organization Formerly [facility] Address [address] [facility] [address] [place] [phone] Phone Care Team Providers Care Mechanical Repair Worker Name Role Phone [facility] Primary Care Provider Pcp, Unknown Unavailable Unavailable Encounter Details Date Type Department Care Team (Late st Contact Info) Description 01/04/2024 Transcribe Orders [facility] Phleb [address] [address] Missy Miranda PA [address] [place] [phone] [email or web address] Need for hepatitis C screening test (Primary [...] EST) FERRITIN 168 30 - 400 ug/L [facility] Blood 01/04/2024 9:22 AM EST 01/04/2024 9:53 AM EST Missy WALLACE LAB BLOOD BKR ORDERABLES Final Result Performing Organization Address City/[facility]/ZIP Co de Phone Number [address] [address] * (ABNORMAL) PT-INR (01/04/2024 9:22 AM EST) Pathologist [facility] PT 15.9(H) 10.2 - 12.9 sec [facility] INR 1.4(H) 0.9 - 1.1 [facility] Comment:Therapeutic range fo r oral Vitamin K antagonists: 2.0-3.5 Blood 01/04/2024 9:22 AM EST 01/04/2024 9:53 AM EST Missy WALLACE LAB BLOOD BKR ORDERABLES Final Result Performing Organization Address City/[facility]/ZIP Co de Phone Number [address] [address] * Iron and iron binding capacity (01/04/2024 9:22 AM EST) Pathologist [facility] IRON 81 45 - 160 ug/dL [facility] IRON BINDING CAPACITY 326 228 - 428 ug/dL [facility] TRANSFERRIN SATURAT. 25 20 - 55 % [facility] Blood 01/04/2024 9:22 AM EST 01/04/2024 9:53 AM EST Missy WALLACE LAB BLOOD BKR ORDERABLES Final Result Performing Organization Address City/[facility]/ZIP Co de Phone Number [address] [address] * Lipase (01/04/2024 9:22 AM EST) Pathologist [facility] LIPASE 35 16 - 63 U/L [facility] Blood 01/04/2024 9:22 AM EST 01/04/2024 9:53 AM EST Missy WALLACE LAB BLOOD BKR ORDERABLES Final Result Performing Organization Address [facility]/ZIP Co de Phone Number [address] [address] * Hepatitis C antibody, qualitative (01/04/2024 9:22 AM EST) Pathologist [facility] HCV NON-REACTIV E NON-REACTI VE [facility] Blood 01/04/2024 9:22 AM EST 01/04/2024 9:53 AM EST Missy WALLACE LAB BLOOD BKR ORDERABLES Final Result Performing Organization Address [facility] Co de Phone Number [address] [address] * Hepatitis B surface antibody (01/04/2024 9:22 AM EST) Pathologist [facility] HBV SURFACE ANTIBODY Negative [facility] Comment: Unvaccinated: Negative Vaccinated: Positive Blood 01/04/2024 9:22 AM EST 01/04/2024 9:53 AM EST Missy WALLACE LAB BLOOD BKR ORDERABLES Final Result Performing Organization Address City/[facility]/ZIP Co de Phone Number [address] [address] * Hepatitis B surface antigen (01/04/2024 9:22 AM EST) HBV SURFACE ANTIGEN NON-REACTI VE NON-REACTI VE [facility] Blood 01/04/2024 9:22 AM EST 01/04/2024 9:53 AM EST Missy WALLACE LAB BLOOD BKR ORDERABLES Final Result Performing Organization Address [facility] Co de Phone Number [address] [address] * Hepatitis B core antibody, total (01/04/2024 9:22 AM EST) HEP B CORE AB, TOT NON-REACTI VE NON-REACTI VE [facility] Blood 01/04/2024 9:22 AM EST 01/04/2024 9:53 AM EST Missy WALLACE LAB BLOOD BKR ORDERABLES Final Result Performing Organization Address [facility] Co de Phone Number [address] [address] * HEPATITIS A ANTIBODY, TOTAL (01/04/2024 9:22 AM EST) HAV TOTAL AB NON-REACTI VE NON-REACTI VE [facility] Blood 01/04/2024 9:22 AM EST 01/04/2024 9:53 AM EST Missy WALLACE LAB BLOOD BKR ORDERABLES Final Result Performing Organization Address City/[facility]/ZIP Co de Phone Number [address] [address] * (ABNORMAL) GGT (Gamma glutamyl transferase) (01/04/2024 9:22 AM EST) Pathologist [facility] GGT 54(H) 11 - 51 U/L [facility] Blood 01/04/2024 9:22 AM EST 01/04/2024 9:53 AM EST Missy WALLACE LAB BLOOD BKR ORDERABLES Final Result [address] [address] * C-Reactive Protein (01/04/2024 9:22 AM EST) [facility] C REACTIVE PROTEIN <3.0 0.0 - 4.0 mg/L [facility] Blood 01/04/2024 9:22 AM EST 01/04/2024 9:53 AM EST Missy WALLACE LAB BLOOD BKR ORDERABLES Final Result [address] [address] * (ABNORMAL) Comprehensive metabolic panel (01/04/2024 9:22 AM EST) Pathologist [facility] SODIUM 137 133 - 146 mmol/L [facility] POTASSIUM 4.5 3.3 - 5.1 mmol/L [facility] CHLORIDE 105 96 - 108 mmol/L [facility] CO2 22 21 - 35 mmol/L [facility] BUN 14 6 - 19 mg/dL [facility] CREATININE 0.80 0.5 - 1.5 mg/dL [facility] GLUCOSE 104(H) 70 - 99 mg/dL [facility] ALBUMIN 4.1 3.9 - 4.8 g/dL [facility] TOTAL PROTEIN 8.1(H) 6.5 - 8.0 g/dL [facility] CALCIUM 10.4(H) 8.4 - 10.3 mg/dL [facility] ALKALINE PHOSPHATASE 118(H) 39 - 117 U/L [facility] TOTAL BILIRUBIN 0.6 0.0 - 1.2 mg/dL [facility] AST 25 0 - 37 U/L [facility] ALT 7 0 - 40 U/L [facility] GLOBULIN 4.0 1 - 4.8 g/dL [facility] EGFR 105 >59 mL/min/1.7 3m2 [facility] Comment:Estimated glomerular filtration rate calculated using the CKD-EPI refit equation. ANION GAP 15 10 - 20 mmol/L [facility] Blood 01/04/2024 9:22 AM EST 01/04/2024 9:53 AM EST Missy WALLACE LAB BLOOD BKR ORDERABLES Final Result [address] [address] * (ABNORMAL) CBC and differential (01/04/2024 9:22 AM EST) WBC 3.17(L) 4.00 - 11.00 K/uL [facility] RBC 3.41(L) 4.23 - 5.82 M/uL [facility] HGB 10.7(L) 13.4 - 17.5 g/dL [facility] HCT 33.8(L) 37.0 - 51.0 % [facility] PLT 64(L) 140 - 430 K/uL [facility] Comment:Consistent with prev ious result. MCV 99.1(H) 78.0 - 97.0 fL [facility] MCH 31.4 25.0 - 33.0 pg [facility] MCHC 31.7(L) 32.0 - 36.0 g/dL [facility] RDW 13.0 11.0 - 15.0 % [facility] MPV 13.2(H) 8.4 - 12.8 fl [facility] DIFF METHOD Auto [facility] NEUTS 57.2 43.0 - 75.0 % [facility] LYMPHS 24.9 18.2 - 47.4 % [facility] MONOS 12.0(H) 4.00 - 11.00 % [facility] EOS 4.7 0.0 - 8.0 % [facility] BASOS 0.9 0.0 - 2.0 % [facility] Granulocytes, immature (%) 0.3 0.0 - 0.9 % [facility] ABSOLUTE NEUTS 1.81 1.80 - 7.70 K/uL [facility] ABSOLUTE LYMPHS 0.79(L) 1.00 - 3.10 K/uL [facility] ABSOLUTE MONOS 0.38 0.20 - 0.80 K/uL [facility] ABSOLUTE EOS 0.15 0.00 - 0.80 K/uL [facility] ABSOLUTE BASOS 0.03 0.00 - 0.09 K/uL [facility] Granulocytes, immature 0.01 0.00 - 0.05 K/uL [facility] Blood 01/04/2024 9:22 AM EST 01/04/2024 9:53 AM EST Missy Miranda [place] LAB BLOOD BKR ORDERABLES Final Result [address] [address] * (ABNORMAL) Immunoglobulin A (01/04/2024 9:22 AM EST) IgA 436(H) 70 - 400 mg/dL [facility] Blood 01/04/2024 9:22 AM EST 01/04/2024 9:53 AM EST [facility]KR ORDERABLES Final Result [address] [address] * Tissue transglutaminase IgA (01/04/2024 9:22 AM EST) TTG IGA ANTIBODY 1.9 <4.0 (Negative) U/mL [facility] [address] Blood 01/04/2024 9:22 AM EST 01/04/2024 9:53 AM EST Missy WALLACE LAB BLOOD BKR ORDERABLES Final Result [facility] [address] [place] [address] * Smooth Muscle Antibody (01/04/2024 9:22 AM EST) SMOOTH MUSCLE AB POSITIVE AT 1:20 [facility] Comment: Performing Physician, Max Jimenez M.D., [id number] Normal: Negative at 1:20 Blood 01/04/2024 9:22 AM EST 01/04/2024 9:53 AM EST Missy WALLACE LAB BLOOD ORDERABLES Fin al Result Performing Organization Address [facility] Co de Phone Number [address] [address] * Ceruloplasmin (01/04/2024 9:22 AM EST) CERULOPLASMIN 31 20 - 60 mg/dL [facility] Blood 01/04/2024 9:22 AM EST 01/04/2024 9:53 AM EST Missy WALLACE LAB BLOOD ORDERABLES Fin al Result Performing Organization Address [facility] Co de Phone Number [address] [address] * (ABNORMAL) Antinuclear antibody (JERMAIN) (01/04/2024 9:22 AM EST) JERMAIN SCREEN ON HEP 2 Positive(A ) Negative [facility] Comment:An JERMAIN Titer has bee n reflexed. The results will follow. Blood 01/04/2024 9:22 AM EST 01/04/2024 9:53 AM EST Missy WALLACE LAB BLOOD BKR ORDERABLES Final Result [address] [address] * Anti-Mitochondrial Antibody (AMA) (01/04/2024 9:22 AM EST) MITOCHONDRIAL AB NEGATIVE AT 1:20 [facility] Comment: Performing Physician, Max Jimenez M.D., [id number] Normal: Negative at 1:20 Blood 01/04/2024 9:22 AM EST 01/04/2024 9:53 AM EST Missy WALLACE LAB BLOOD ORDERABLES Fin al Result Performing Organization Address [facility] Co de Phone Number [address] [address] * Amylase (01/04/2024 9:22 AM EST) Pathologist [facility] AMYLASE 86 28 - 100 U/L [facility] Blood 01/04/2024 9:22 AM EST 01/04/2024 9:53 AM EST Missy WALLACE LAB BLOOD BKR ORDERABLES Final Result Performing Organization Address [facility] Co de Phone Number [address] [address] * AFP (non-maternal specimens) (01/04/2024 9:22 AM EST) [facility] AFP (NON-MATERNAL) 4.7 <7.9 ng/mL [facility] Comment: Test Methodology Filipe [id number] Patient results determined by assays using different manufacturers or methods may not be comparable. Blood 01/04/2024 9:22 AM EST 01/04/2024 9:53 AM EST Missy WALLACE LAB BLOOD BKR ORDERABLES Final Result Performing Organization Address [facility] Co de Phone Number [address] [address] * Pfxxt-7-lvosipgqkue phenotyping (01/04/2024 9:22 AM EST) ALPHA 1 ANTITRYPSIN 173 100 - 190 mg/dL [facility] [address] Comment: (NOTE) ADDITIONAL INFORMATION Method: Nephelometry A1A PHENOTYPE MM bands [facility] [address] Comment: (NOTE) A single M isoform is detected. In the context of a normal mnocy-5-xmbsushhhnh concentration, this is consistent with an MM phenotype. ADDITIONAL INFORMATION Method: Isoelectric Focusing, This assay identifies the phenotype of the circulating xxvry-5-wnwsexmcdvu (A1A) protein. If the patient is on replacement therapy or has been recently transfused, the phenotype will detect patient and replacement or transfused plasma A1A protein. This test also cannot detect a null allele which could be responsible for an A1A deficiency. 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 It is not the complete legal health record.[facility]
--- OUTSIDE RECORDS SUMMARY | 2025-10-01 14:07 | XMS_ITS | Encounter Summary ---
Author Organization [facility] Address [address] [facility] [address] [place] [address] Phone Care Team Providers Care Linux Network Systems Administrator Name Role Phone [facility] Primary Care Provider Pcp, Unknown Unavailable Unavailable Encounter Details Date Type Department Care Team (Late st Contact Info) Description 02/02/2024 Procedure Pass [facility] Endoscopy Admitting Dept Virtual Department [address] [place] [address] Social History Tobacco Use Types Packs/Day Years [...] on filedocumented in this encounter Care Teams Linux Network Systems Administrator Relationship Specialty Start Date End Date [facility] [address] [place] [id number] PCP - General 10/07/23 Pcp, Unknown 10/07/23 documented as of this encounter Additional Source Comments The information contained in this document represents components of the legal health record. It is not the complete legal health record.[facility]
== END 2025-10-01 09:02 | disposition home or self-care (01) ==
PROVIDERS: Emergency Provider Emergency Medicine
DX: F10.229 Alcohol dependence with intoxication, unspecified (principal); Y90.9 Presence of alcohol in blood, level not specified; M54.9 Dorsalgia, unspecified; M79.673 Pain in unspecified foot; Z59.02 Unsheltered homelessness
CPT/HCPCS: 99283; 99284

== ENCOUNTER 2025-10-01 17:11 | Inpatient (IN) | payer MEDICAID, SELFPAY ==
--- NOTE | ~2025-10-01 | XR_ITS ---
EXAMINATION: XR CHEST CLINICAL INFORMATION: cough COMPARISON: 10/03/2025. TECHNIQUE: AP view of the chest was obtained. FINDINGS: The cardiac, hilar, and mediastinal contours are normal. There is mild diffuse interstitial prominence with haziness. There are Gregory B lines in the peripheral lung bases. There is a more discrete retrocardiac consolidative opacity, unchanged from the prior exam and presumably chronic scarring. No pneumothorax or effusion. No focal osseous or soft tissue abnormality. XR/XR chest 1V IMPRESSION: 1. Mild interstitial pulmonary edema. 2. Chronic opacity in the retrocardiac region is likely scarring. Electronically signed by: David Wang MD 10/07/2025 09:27 AM BILL
--- NOTE | ~2025-10-01 | XR_ITS ---
EXAMINATION: XR CHEST 1 VIEW HISTORY: Shortness of breath COMPARISON: Comparison is made with the prior examination dated 10/02/2025 FINDINGS: A single AP portable view of the chest performed at 7:33 AM is submitted. There are increased interstitial markings which could be due to AP portable technique. Persistent airspace opacity is again noted in the left lower lobe, suggestive of pneumonia. There is no pleural effusion, pneumothorax, or pulmonary vascular congestion. The heart is normal in size. The bones are intact. XR/XR chest 1V IMPRESSION: Persistent left lower lobe airspace opacity, consistent with pneumonia. Electronically signed by: Dony Nunn MD 10/03/2025 07:50 AM [facility] [place]
--- NOTE | ~2025-10-01 | XR_ITS ---
EXAMINATION: XR CHEST CLINICAL INFORMATION: hypoxia COMPARISON: Previous chest x-ray most recent September 28, 2025 TECHNIQUE: 2 views of the chest were obtained. FINDINGS: Increased central bronchial markings. Bronchial wall thickening and increased attenuation left lung base silhouetting the left hemidiaphragm suggestive of left lower lobe bronchopneumonia. Lungs are otherwise clear. No pleural effusion or pneumothorax. Cardiac and mediastinal contours are normal. Mild degenerative changes of the thoracic spine. XR/XR chest 2V IMPRESSION: Increased central bronchial markings most suggestive of airways disease and left lower lobe bronchopneumonia. Electronically signed by: Yoselin Irving MD 10/02/2025 01:44 PM [facility] [place]
[2025-10-01 17:20] VITALS: BP 106/56; BP 109/55; PULSE 83; PULSE 84; RESP 16; TEMP 36.7; O2SAT 93; O2SAT 95; BMI 23.4
[2025-10-01 19:27] VITALS: BP 102/54; PULSE 67; RESP 16; TEMP 36.4; O2SAT 92
--- NOTE | 2025-10-01 19:41 | ED.GENADULT ---
HPI - General Adult General Chief complaint: ETOH/Substance Use Stated complaint: LOWER BACK PAIN ETOH Time Seen by Provider: 10/01/25 17:17 Source: patient, RN notes reviewed and old records reviewed Mode of arrival: EMS Limitations: no limitations History of Present Illness ED Provider: Chapis VIVAR narrative: 55-year-old male with past medical history significant for severe alcohol use disorder, liver cirrhosis, CHF and chronic hypoxia presents for evaluation of my balls itch. the patient is well known to this facility with numerous presentations usually for alcohol use disorder and alcohol intoxication. His triage note reports that he was complaining of back pain and a cough. He tells me that he does not remember reporting that but is here because he has a rash on his scrotum that has itchy he denies any pain or testicular swelling no other complaints or concerns at this time Related Data Home Medications ?Medication ?Instructions ?Recorded ?Confirmed albuterol sulfate 90 mcg/actuation 2 puff inhalation Q4-6H PRN 10/02/25 10/02/25 aerosol inhaler Respiratory Distress folic acid 1 mg tablet 1 mg PO DAILY 10/02/25 10/02/25 magnesium oxide 400 mg PO DAILY 10/02/25 10/02/25 naltrexone 50 mg tablet 50 mg PO DAILY 10/02/25 10/02/25 thiamine HCl (vitamin B1) 100 mg 100 mg PO DAILY 10/02/25 10/02/25 tablet Allergies Allergy/AdvReac Type Severity Reaction Status Date / Time No Known Allergies (No Known Allergy Verified 10/01/25 17:27 Allergies*) Review of Systems Constitutional: Constitutional: Denies body ache(s), Denies chills and Denies fever(s) Eyes: Eyes: Denies blurry vision ENT: Denies vertigo and Denies dizziness Cardiovascular: Cardiovascular: Denies chest pain and Denies dyspnea on exertion Respiratory: Respiratory: Denies cough and Denies dyspnea on exertion Gastrointestinal: Gastrointestinal: Denies abdominal pain, Denies nausea and Denies vomiting Genitourinary: Genitourinary: Denies scrotal swelling Musculoskeletal: Musculoskeletal: Denies back pain Integumentary/Breasts: Skin/Breast: Reports pruritus and Reports rash Neurologic: Denies vertigo and Denies dizziness Psychiatric: Psychiatric: Denies anxiety PMFSH Past Medical History Medical History Hemorrhoids, internal, with bleeding Rectal bleeding Pancytopenia Alcohol withdrawal Alcohol use disorder, severe, dependence Pancytopenia Cirrhosis Hypomagnesemia Aspiration pneumonia Alcohol use disorder CHF (congestive heart failure) Alcohol abuse Acute hypoxemic respiratory failure Anemia Pneumonia Alcohol withdrawal syndrome Alcohol abuse Thrombocytopenia Esophageal varices Acute on chronic anemia Alcoholic liver disease Thrombocytopenia Malnutrition CHF (congestive heart failure) Anemia Thrombocytopenia Acute on chronic anemia CHF (congestive heart failure) Anemia Alcohol abuse Surgical History No history of previous surgery Social History Social History Household Members: None Household Members Other:: homeless Housing: Homeless Housing Other:: homeless Do you presently have visiting nurse or other home services: No Alcohol intake: current Alcohol intake frequency: 3 or more drinks per day Alcohol type: beer and hard liquor Comment: pt refuse to have staff remain in BR Patient Tobacco Use Status: Former Tobacco user Tobacco use type: Cigarette Second Hand Smoke Exposure: No Advance Directives Date on File: 07/13/23 service: No Physical Exam ED Vital Signs: Vital Signs - 24 hr 10/12/25 14:00 10/12/25 21:39 10/13/25 05:41 Temperature 98.5 F 99 F 98.7 F Pulse Rate 72 93 69 Respiratory Rate 18 18 16 Blood Pressure 103/54 L 99/59 L 91/46 L Pulse Oximetry 95 91 L 99 Oxygen Delivery Method Nasal Cannula Nasal Cannula Nasal Cannula Oxygen Flow Rate 4 4 4 BMI result Body Mass Index 23.4 Const General: healthy appearing, comfortable, no acute distress, alert and awake Nutritional Appearance: well nourished Orientation/consciousness: patient oriented x3 HENMT Head: Yes normocephalic and Yes atraumatic Eyes Eyelids: Yes eyelids normal Conjunctivae: conjunctivae normal Sclerae: sclerae normal Corneas: corneas normal Pupils: Equal, round and reactive pupils present EOM: EOMs intact bilaterally Neck Neck: Yes full ROM Resp Effort & Inspection: normal respiratory effort, able to speak in complete sentences and not labored Other: there was no significant rash, erythema to the patient's scrotum. There were some superficial excoriation stroud to the left hemiscrotum. There was no testicular masses or tenderness. Skin General skin exam: elasticity normal Neuro General: patient oriented x3 Cranial nerves: Yes Equal, round and reactive pupils present and Yes Bilaterally intact EOM present Cognition (Neuro): normal cognition Extrem Other: Moving all extremities well without any obvious deformities Course Reevaluation(s) Reevaluation #1: Time: 11:30 Date: 10/02/25 Provider: MADISON Keller Patient in physician observation for case management needs. No acute events reported overnight.? No current issues or complaints. We started a phenobarb protocol to prevent etoh withdrawal, and we will start patient on thiamine. Patient was seen by the psych team and it was deemed that he does not have capacity to make his own medical decisions. Case management his currently following patient. This is a complex case. Patient's healthcare proxy is his brother, Guillermo and is listed in his chart. Case management spoke to Guillermo and agrees that patient does not have the capacity to make his own decisions. Guillermo is willing to act as patient's healthcare proxy in the meantime. His brother's aware that [facility] will be [facility]. Dr. Del Rosario is aware of the situation, and we will continue to follow patient pending case management disposition and overall workup. Patient may need to be made a social admit however we will continue to monitor pending overall disposition. Labs were not obtained prior, will obtain basic labs pending disposition. Reevaluation #2: 7:56 AM 10/03/2025 (ISAIAS MORATAYA): I did start the patient on folic acid, multivitamin daily I did review psych notes for insomnia I did put in p.r.n. trazodone I noted on a chest x-ray from yesterday that there is possible left lower lobe opacity, I repeated labs which showed a normal CRP and normal lactic acidosis though this could be skewed in his cirrhosis. His chest x-ray is persistently showing a left lower lobe opacity with a recent normal chest x-ray on 09/28/2025. Has no increased O2 demands he has no fevers, his labs are otherwise stable at this time I am going to start him on IV ceftriaxone daily as well as oral azithromycin for community-acquired pneumonia. I do not think he has healthcare associated pneumonia based off his vital signs and labs. We will continue to observe, I am going to discuss this case later with the hospitalist as he will need a prolonged stay in the ED and now has pneumonia 9:42 AM 10/04/2025 (Cecilia Gr SUPPLIER ENGINEER): Physician observation continued. No overnight events reported by nursing. 6am blood pressure low, will recheck now. Time: 08:36 a.m. Date: 10/06/2025 Provider: Jones Mosher PA-C Physician observation continued. No acute events reported by nursing overnight. Patient brother requesting LTC placement, difficult to get placement at this time due to no beds available and facility concerns with the patients SNF discharge plan. Case management is following. Will continue to monitor as we await disposition. 6am hypotensive at 96/55, rechecking vials now. - Vital recheck: BP- 115/56, pulse rate of 76, respiratory rate of 16, afebrile with oral temp of 98.6, O2 sat 93% on 3L NC. 18:24 10/06/25 Jones Mosher PA-C Nursing reached out to me that the patients O2 sat was dropping down to 89% on 3L and required her to turn O2 up to 4 L to get O2 sat 90%. I performed a physical exam on the patient which reveals some diminished breath sounds of bilateral lung bases however no rhonchi or wheezing. Patient states he feels like his breathing is better at this time but is complaining of the nasal cannula stating that it makes him sneeze and his nose dry and states he has been taking off the O2 for comfort. I believe the patient is frequently removing his NC causing O2 to drop. Patient is alert and oriented, non toxic appearing, afebrile, no indication to add abx at this time. 10/07/2025 0827 Abril Sam PA-C --> Observation continues. Case management continues to follow. Given patient's length of stay - repeat labs and portable chest XR ordered. 10/07/2025 1419 Abril Sam PA-C --> Observation continues. Case management continues to follow. Patient's repeat labs + chest XR show no acute findings. Patient is chronically on the lower side of normal in terms of blood pressure. Patient mentating well, appropriate MAP. Time: 09:27 Date: 10/08/25 Provider: MADISON Keller Patient in physician observation for case management needs. No acute events reported overnight.? No current issues or complaints. VS stable. Will continue to monitor. Time: 11:37 Date: 10/09/25 Provider: Jones Mosher PA-C Patient in physician observation for case management. No acute events reported overnight. No current issues or complaints. VS stable. Currently awaiting acceptance for STR placement. We will continue to monitor as we await disposition. Time: 08:19 Date: 10/10/25 Provider: MADISON Shipley Patient in physician observation for case management. No acute events reported overnight. No current issues or complaints. VS stable. Currently awaiting placement at facility. Will continue to monitor as we await disposition. Time: 09:35 Date: 10/11/25 Provider: Jones Mosher PA-C Patient in physican observation for case management needs. No acute events reported overnight. No current issues or complaints. Patient with chronic hypotension, currently asymptomatic. Currently awaiting acceptance for STR placement. Will continue to monitor as we await disposition. 5:52 PM 10/12/2025 (Cecilia Gr SUPPLIER ENGINEER): Physician observation continued, no overnight events reported by nursing. Vital stable. Awaiting short-term rehab placement, case management following for disposition. Time: 13:57 Date: 10/13/25 Provider: MADISON Keller Patient in physician observation for case management needs. No acute events reported overnight.? No current issues or complaints. VS stable. We will continue to monitor pending case management disposition. Reevaluation #3: admitted inpatient 10/14/25 0800 end phys obs ISAIAS Medications Administered Discontinued Medications Generic Name Dose Route Start Last Admin Trade Name Ricardoq PRN Reason Stop Dose Admin Azithromycin 500 mg 10/03/25 07:55 10/03/25 08:52 Azithromycin 500 Mg Tablet PO 10/03/25 07:56 500 mg ONCE ONE Administration Azithromycin 250 mg 10/04/25 09:00 10/07/25 08:29 Azithromycin 250 Mg Tablet PO 10/07/25 09:01 250 mg DAILY JOSE MANUEL Administration Folic Acid 1 mg 10/03/25 09:00 10/14/25 08:51 Folic Acid 1 Mg Tablet PO 1 mg DAILY JOSE MANUEL Administration Ceftriaxone Sodium 1 gm/ 50 mls @ 100 mls/hr 10/03/25 09:00 10/07/25 09:06 Sodium Chloride IV 10/07/25 09:29 Infused DAILY JOSE MANUEL Infusion Magnesium Oxide 400 mg 10/09/25 09:00 10/14/25 08:51 Magnesium Oxide 400 Mg Tablet PO 400 mg DAILY JOSE MANUEL Administration Multivitamins/Vitamin C 1 tab 10/03/25 09:00 10/14/25 08:51 Multivitamin Tablet PO 1 tab DAILY JOSE MANUEL Administration Naltrexone HCl 50 mg 10/09/25 09:00 10/14/25 08:51 Naltrexone Hcl 50 Mg Tablet PO 50 mg DAILY JOSE MANUEL Administration Nystatin 1 appl 10/01/25 19:36 10/01/25 20:08 Nystatin Cream 15 Gm Tube TOPICAL 10/01/25 19:37 1 appl ONCE ONE Administration Protocol Phenobarbital 45 mg 10/02/25 21:00 10/04/25 09:48 Phenobarbital 15 Mg Tablet PO 10/04/25 09:01 45 mg BID JOSE MANUEL Administration Protocol Phenobarbital 15 mg 10/04/25 21:00 10/06/25 08:39 Phenobarbital 15 Mg Tablet PO 10/06/25 09:01 15 mg BID JOSE MANUEL Administration Protocol Phenobarbital 15 mg 10/07/25 09:00 10/08/25 08:36 Phenobarbital 15 Mg Tablet PO 10/08/25 09:01 15 mg DAILY JOSE MANUEL Administration Protocol Phenobarbital Sodium 200 mg 10/02/25 12:00 10/02/25 12:12 Phenobarbital Sodium 130 Mg/Ml Im Once IM 10/02/25 12:01 200 mg ONCE ONE Administration Protocol Phenobarbital Sodium 150 mg 10/02/25 15:00 10/02/25 18:31 Phenobarbital Sodium 130 Mg/Ml Vial Im Q3hx2 IM 10/02/25 18:01 150 mg Q3H JOSE MANUEL Administration Protocol Sodium Chloride 3 ml 10/14/25 00:00 10/14/25 16:00 0.9 % Sodium Chloride Flush 3 Ml Syringe IVFLUSH Not Given QSHIFT [facility] Thiamine HCl 100 mg 10/02/25 11:45 10/14/25 08:51 Thiamine Hcl 100 Mg Tablet PO 100 mg DAILY JOSE MANUEL Administration Medical Decision Making Medical Decision Making [facility] Narrative: 55-year-old male presents for evaluation of an itchy scrotum. He has no obvious rash but does have some excoriation stroud. History exam is most consistent with candidiasis and we will treat with nystatin. There was no testicular pain or swelling, no evidence of cellulitis. No evidence to suggest testicular torsion or epididymitis. He denies any burning with urination or urethral discharge. A care plan is in the process of being started for the patient. Per our medical csr, plan to obtain a psychiatric consult to determine capacity to make medical decisions. the patient is not on a section 12, he is not suicidal or homicidal. Differential Diagnosis Differential Diagnoses: The differential diagnosis associated with the presentation includes Alcohol use disorder Candidiasis Chronic back pain CHF Malingering Lab Data 10/14/25 03:19 10/14/25 03:19 Labs: Lab Results 10/02/25 10/03/25 10/03/25 Range/Units 12:20 06:37 06:39 WBC 2.7 L 2.8 L (4.8-10.8) X10*3/uL RBC 3.44 L 3.65 L (4.60-5.80) X10*6/uL Hgb 10.2 L 10.7 L (14.0-18.0) g/dl Hct 31.5 L 33.9 L (42.0-52.0) % MCV 91.6 92.9 (80.0-98.0) fL MCH 29.7 29.3 (27.0-33.0) pg MCHC 32.4 31.6 (31.0-36.0) g/dl RDW 16.1 H 16.0 (11.0-16.0) % Plt Count 49 L D 48 L (160-400) X10*3/uL MPV 11.0 11.8 (9.4-12.4) fL Immature Gran % (Auto) 0.4 0.4 (0.0-0.4) % Neut % (Auto) 58.5 59.0 (45-73) % Lymph % (Auto) 27.2 24.7 (20-40) % [place] % (Auto) 8.8 9.5 (2-11) % Eos % (Auto) 4.4 H 5.7 H (0-4) % Baso % (Auto) 0.7 0.7 (0-2) % Lymph # (Auto) 0.7 L 0.7 L (1.2-4.9) X10*3/uL [place] # (Auto) 0.2 0.3 (0.1-1.2) X10*3/uL Eos # (Auto) 0.1 0.2 (0.0-0.4) X10*3/uL Baso # (Auto) 0.0 0.0 (0.0-0.2) X10*3/uL Abs Immat Gran (auto) 0.01 0.01 (0.00-0.03) X10*3/uL Absolute Neuts (auto) 1.6 L 1.7 L (2.0-8.3) x10*3/uL Absolute Nucleated RBC 0.000 0.000 (0.0-0.012) X10*3/uL Nucleated RBC % (auto) 0.0 0.0 (0.0-0.2) /100WBC Smear Tech's Comments VERIFIED Sodium 140 (135-145) mmol/L Potassium 3.9 (3.3-5.1) mmol/L Chloride 112 H (96-108) mmol/L Carbon Dioxide 21 L (22-29) mmol/L Anion Gap 11 L (12-20) BUN 13 (9-16) mg/dL Creatinine 0.78 (0.5-1.4) mg/dL Estim Creat Clear Calc 74.7 Estimated GFR > 60 Random Glucose 86 (60-115) mg/dL Lactic Acid 0.7 (0.5-2.0) mmol/L Calcium 8.8 (8.4-10.2) mg/dL Total Bilirubin 0.7 (0.0-1.0) mg/dL AST 31 (5-37) U/L ALT 7 (0-40) U/L Alkaline Phosphatase 104 (39-117) U/L C-Reactive Protein 0.24 (< or = 0.50) mg/dL Total Protein 7.0 (6.5-8.0) g/dL Albumin 3.3 L (3.5-5.0) g/dL Procalcitonin 0.09 ng/mL 10/07/25 Range/Units 08:43 WBC 3.3 L (4.8-10.8) X10*3/uL RBC 3.41 L (4.60-5.80) X10*6/uL Hgb 10.3 L (14.0-18.0) g/dl Hct 31.7 L (42.0-52.0) % MCV 93.0 (80.0-98.0) fL MCH 30.2 (27.0-33.0) pg MCHC 32.5 (31.0-36.0) g/dl RDW 16.4 H (11.0-16.0) % Plt Count 60 L (160-400) X10*3/uL MPV 12.7 H (9.4-12.4) fL Immature Gran % (Auto) 0.6 H (0.0-0.4) % Neut % (Auto) 57.3 (45-73) % Lymph % (Auto) 23.2 (20-40) % [place] % (Auto) 10.8 (2-11) % Eos % (Auto) 7.2 H (0-4) % Baso % (Auto) 0.9 (0-2) % Lymph # (Auto) 0.8 L (1.2-4.9) X10*3/uL [place] # (Auto) 0.4 (0.1-1.2) X10*3/uL Eos # (Auto) 0.2 (0.0-0.4) X10*3/uL Baso # (Auto) 0.0 (0.0-0.2) X10*3/uL Abs Immat Gran (auto) 0.02 (0.00-0.03) X10*3/uL Absolute Neuts (auto) 1.9 L (2.0-8.3) x10*3/uL Absolute Nucleated RBC 0.000 (0.0-0.012) X10*3/uL Nucleated RBC % (auto) 0.0 (0.0-0.2) /100WBC Smear Tech's Comments Sodium 139 (135-145) mmol/L Potassium 4.1 (3.3-5.1) mmol/L Chloride 112 H (96-108) mmol/L Carbon Dioxide 20 L (22-29) mmol/L Anion Gap 11 L (12-20) BUN 20 H (9-16) mg/dL Creatinine 0.76 (0.5-1.4) mg/dL Estim Creat Clear Calc 76.7 Estimated GFR > 60 Random Glucose 123 H (60-115) mg/dL Lactic Acid (0.5-2.0) mmol/L Calcium 9.3 (8.4-10.2) mg/dL Total Bilirubin 0.4 (0.0-1.0) mg/dL AST 30 (5-37) U/L ALT 9 (0-40) U/L Alkaline Phosphatase 114 (39-117) U/L C-Reactive Protein (< or = 0.50) mg/dL Total Protein 7.0 (6.5-8.0) g/dL Albumin 3.3 L (3.5-5.0) g/dL Procalcitonin ng/mL Discharge Plan Discharge Clinical Impression: Alcohol use disorder, Community acquired pneumonia, Encounter for assessment of decision-making capacity Patient Disposition: Admitted As Inpatient Interventions: Admission Worksheet (ED) Last Done: 10/14/25 08:03 Discharge Date/Time: 10/14/25 08:29
[2025-10-01 20:05] VITALS: BP 91/51; RESP 77
--- NOTE | 2025-10-01 21:00 | MHC.EDTECH ---
pt refused to allow me to perform full vital set on him
--- NOTE | 2025-10-01 23:15 | PC.NURSE ---
This securities underwriter assumed care at 2300.
[2025-10-02 01:50] VITALS: BP 99/50; PULSE 75; RESP 20; TEMP 36.7; O2SAT 92
--- NOTE | 2025-10-02 03:16 | PC.NURSE ---
Pt ambulated to BR independently with slow steady gait.
--- OUTSIDE RECORDS SUMMARY | 2025-10-02 05:07 | XMS_ITS ---
Author Organization [employer] Address [address] [place] [address] [address] [place] [address] Care Team Providers Care Partner Marketing Intern Name Role Phone Charbel Calles RN Unavailable [phone] Conor Vidal Unavailable CHW Complex Status:Outreach In Progress (Enrolling) Start date:09/11/2025 Enrollment reason:ADT Feed Overview ED- Pt went to [facility] ED on 09/10/25. Case Team Name Relationship Phone Conor Vidal(Responsible Staff) [phone] Continued Care and Services Coordination
--- OUTSIDE RECORDS SUMMARY | 2025-10-02 05:07 | XMS_ITS | Encounter Summary ---
Author Organization [employer] Address [address] [place] [address] [address] [place] [address] Care Team Providers Care Sales Route Driver Name Role Phone Charbel Calles RN Unavailable [phone] Conor Vidal Unavailable Encounter Details Date Type Department Care Team (Late st Contact Info) Description 09/27/2025 Orders Only [facility] External Provider, [facility] Social History Tobacco Use Types Packs/Day [...] AM EST Narrative 09/28/2025 4:30 AM EST [address] [address] XRay Report Signed Patient: Charbel Delgado MR#: [id number] : 1970 Acct:[id number] Age/Sex: 55 / M ADM Date: 09/27/25 Loc: .ED Attending Dr: Ordering Physician: Alexandria Sweeney MD Date of Service: 09/28/25 Procedure(s): XR chest 1V Accession Number(s): [id number] cc: [facility]; Alexandria Sweeney MD Reason for Exam: [...] in OV> 09/28/25428 DD/ 7 TD/TT: 09/28/25427 Fruit Rancher: Procedure Note Donotuseinterpreter, Image - 09/28/[address] [address] XRay Report Signed Patient: Isaias Delgado#: [id number] : 1970Acct:[id number] Age/Sex: 55 / MADM Date: 09/27/25 Loc: .ED Attending Dr: Ordering Physician: Alexandria Sweeney MD Date of Service: 09/28/25 Procedure(s): XR chest 1V Accession Number(s): [id number] cc: [facility]; Alexandria Sweeney MD Reason for Exam: [...] in OV> 09/28/25428 DD/ 7 TD/TT: 09/28/25427 Fruit Rancher: [facility] External Provider IMG XR PROCEDURES Final Result documented in this encounter Visit Diagnoses Not on filedocumented in this encounter Care Teams Sales Route Driver Relationship Specialty Start Date End Date Charbel Calles RN [address] [place] [address] Registered Nurse Family Medicine 09/11/25 Conor Vidal 09/11/25 documented as of this encounter
--- OUTSIDE RECORDS SUMMARY | 2025-10-02 05:07 | XMS_ITS | Encounter Summary ---
Author Organization [employer] Address [address] [place] [address] [place] [address] Care Team Providers Care Mine Engineering Supervisor Name Role Phone Charbel Calles RN Unavailable [phone] Conor Vidal Unavailable Encounter Details Date Type Department Care Team ([facility] st Contact Info) Description 09/30/2025 Results Follow-Up [facility] Information Management [address] [place] [address] Provider, Generic External Data XR Shoulder 2+ Views Left Social History Tobacco Use Types Packs/Day Years [...] on filedocumented in this encounter Care Teams Mine Engineering Supervisor Relationship Specialty Start Date End Date Charbel Calles RN [address] [place] [address] Registered Nurse Family Medicine 09/11/25 Conor Vidal 09/11/25 documented as of this encounter
--- OUTSIDE RECORDS SUMMARY | 2025-10-02 05:07 | XMS_ITS | Encounter Summary ---
Author Organization [employer] Address [address] [place] [address] [address] [place] [address] Care Team Providers Care Operating Room Aide Name Role Phone Charbel Calles RN Unavailable [phone] Conor Vidal Unavailable Encounter Details Date Type Department Care Team ([facility] st Contact Info) Description 09/29/2025 Results Follow-Up [facility] Information Management [address] [place] [address] External Provider, [facility] XR Chest 1 View Social History Tobacco [...] on filedocumented in this encounter Care Teams Operating Room Aide Relationship Specialty Start Date End Date Charbel Calles RN [address] [place] [address] Registered Nurse Family Medicine 09/11/25 Conor Vidal 09/11/25 documented as of this encounter
--- OUTSIDE RECORDS SUMMARY | 2025-10-02 05:07 | XMS_ITS | Encounter Summary ---
Author Organization [employer] Address [address] [place] [address] [place] [address] Care Team Providers Care Tip Tester Name Role Phone Charbel Calles RN Unavailable [phone] Conor Vidal Unavailable Encounter Details Date Type Department Care Team (Latest Contact Info) Description 09/08/2025 Results Follow-Up [facility] [address] [place] [address] External Provider, [facility] CTA Chest PE Protocal, XR [...] on filedocumented in this encounter Care Teams Tip Tester Relationship Specialty Start Date End Date Charbel Calles RN [address] [place] [address] Registered Nurse Family Medicine 09/11/25 Conor Vidal 09/11/25 documented as of this encounter
--- OUTSIDE RECORDS SUMMARY | 2025-10-02 05:07 | XMS_ITS | Encounter Summary ---
Author Organization [employer] Address [address] [place] [address] [place] [address] Care Team Providers Care Suit Maker Name Role Phone Charbel Calles RN Unavailable [phone] Conor Vidal Unavailable Encounter Details Date Type Department Care Team (Late st Contact Info) Description 09/16/2025 Results Follow-Up [facility] Information Management [address] [place] [address] Provider, Generic External Data XR Chest 1 [...] on filedocumented in this encounter Care Teams Suit Maker Relationship Specialty Start Date End Date Charbel Calles RN [address] [place] [address] Registered Nurse Family Medicine 09/11/25 Conor Vidal 09/11/25 documented as of this encounter
--- OUTSIDE RECORDS SUMMARY | 2025-10-02 05:07 | XMS_ITS | Clinical Summary ---
Author Organization [facility] Address [address] [place] [address] Phone Care Team Providers Care Management Assistant Name Role Phone [facility], Facility Primary Care Provider Pcp, Unknown [...] magnesia). Active monobasic and dibasic sodium phosphates (87088 ENEMA) 19-7 gram/[address] 1 [...] Patient presented with altered mental status from [facility] where he appeared more lethargic than [...] EST) SODIUM 137 133 - 146 mmol/L [facility] POTASSIUM 4.5 3.3 - 5.1 mmol/L [facility] CHLORIDE 105 96 - 108 mmol/L [facility] CO2 22 21 - 35 mmol/L [facility] BUN 14 6 - 19 mg/dL [facility] CREATININE 0.80 0.5 - 1.5 mg/dL [facility] GLUCOSE 104(H) 70 - 99 mg/dL [facility] ALBUMIN 4.1 3.9 - 4.8 g/dL [facility] TOTAL PROTEIN 8.1(H) 6.5 - 8.0 g/dL [facility] CALCIUM 10.4(H) 8.4 - 10.3 mg/dL [facility] ALKALINE PHOSPHATASE 118(H) 39 - 117 U/L [facility] TOTAL BILIRUBIN 0.6 0.0 - 1.2 mg/dL [facility] AST 25 0 - 37 U/L [facility] ALT 7 0 - 40 U/L [facility] GLOBULIN 4.0 1 - 4.8 g/dL [facility] EGFR 105 >59 mL/min/1.7 3m2 [facility] Comment:Estimated glomerular filtration rate calculated using the CKD-EPI refit equation. ANION GAP 15 10 - 20 mmol/L [facility] Blood 01/04/2024 9:22 AM EST 01/04/2024 9:53 AM EST Missy WALLACE LAB BLOOD BKR ORDERABLES Final Result Performing Organization Address City/[facility]/ZIP Co de Phone Number [address] [address] * Hepatitis C antibody, qualitative (01/04/2024 9:22 AM EST) HCV NON-REACTIV E NON-REACTI VE [facility] Blood 01/04/2024 9:22 AM EST 01/04/2024 9:53 AM EST Missy WALLACE LAB BLOOD BKR ORDERABLES Final Result Performing Organization Address [facility]/ZIP Co de Phone Number [address] [address] from Last 3 Months or Most Recently Relevant to Health Maintenance [place] [address] [employer] [facility] [address] [place] [address] [place] [address] [place] [address] [place] [address] [employer] [facility] [employer]3 [employer] [facility] C3 [employer] Advance Directives For more information, please contact: [phone] (9AM - 5PM 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 It is not the complete legal health record.[facility]
--- OUTSIDE RECORDS SUMMARY | 2025-10-02 05:07 | XMS_ITS | Encounter Summary ---
Author Organization [employer] Address [address] [place] [address] 7 [place] [address] Care Team Providers Care Shipping Support Clerk Name Role Phone Charbel Calles RN Unavailable [phone] Conor Vidal Unavailable Encounter Details Date Type Department Care Team ([facility] st Contact Info) Description 09/16/2025 Results Follow-Up [facility] Information Management [address] [place] [address] External Provider, [facility] XR Chest 1 View Social History [...] on filedocumented in this encounter Care Teams Shipping Support Clerk Relationship Specialty Start Date End Date Charbel Calles RN [address] [place] [address] Registered Nurse Family Medicine 09/11/25 Conor Vidal 09/11/25 documented as of this encounter
--- OUTSIDE RECORDS SUMMARY | 2025-10-02 05:07 | XMS_ITS | Encounter Summary ---
Author Organization [employer] Address [address] [place] [address] 7 [place] [address] Care Team Providers Care Automation Test Engineer Name Role Phone Charbel Calles RN [...] (09/28/2025 12:13 AM EST) Blood Type BP [facility] Antibody Screen NEGATIVE [facility] 09/28/2025 12:1 3 AM EST 09/28/2025 12:16 AM EST us Generic External Data Provider LAB BLOOD BANK TE ST ORDERABLES Final Result [facility] [address] [place] [address] [phone] * (ABNORMAL) CBC auto differential (09/28/2025 12:13 AM EST) White Blood Count 5.6 4.8 - 10.8 X10*3/uL [facility] Red Blood Count 3.53(L) 4.60 - 5.80 X10*6/uL [facility] Hemoglobin 10.5(L) 14.0 - 18.0 g/dl [facility] Hematocrit 32.1(L) 42.0 - 52.0 % [facility] Mean Corpuscular Volume 90.9 80.0 - 98.0 fL [facility] Mean Corpuscular Hemoglobin 29.7 27.0 - 33.0 pg [facility] Mean Corpuscular HGB Conc 32.7 31.0 - 36.0 g/dl [facility] Red Cell Distribution Width 16.2(H) 11.0 - 16.0 % [facility] Platelet Count 59(L) 160 - 400 X10*3/uL [facility] Mean Platelet Volume 11.8 9.4 - 12.4 fL [facility] Neutrophils Percent Auto 63.5 45 - 73 % [facility] Imm Gran Pct Auto 1.2(H) 0.0 - 0.4 % [facility] Lymphocytes Percent Auto 24.4 20 - 40 % [facility] Monocytes Percent Auto 7.0 2 - 11 % [facility] Eosinophils Percent Auto 2.1 0 - 4 % [facility] Basophils Percent Auto 1.8 0 - 2 % [facility] NRBC Pct Auto 0.0 0.0 - 0.2 /100WBC [facility] Neutrophils Absolute Auto 3.6 2.0 - 8.3 x10*3/uL [facility] Imm Gran Abs Auto 0.07(H) 0.00 - 0.03 X10*3/uL [facility] Lymphocytes Absolute Auto 1.4 1.2 - 4.9 X10*3/uL [facility] Monocytes Absolute Auto 0.4 0.1 - 1.2 X10*3/uL [facility] Eosinophils Absolute Auto 0.1 0.0 - 0.4 X10*3/uL [facility] Basophils Absolute Auto 0.1 0.0 - 0.2 X10*3/uL [facility] NRBC Abs Auto 0.000 0.0 - 0.012 X10*3/uL [facility] 09/28/2025 12:1 3 AM EST 09/28/2025 12:16 AM EST us Generic External Data Provider LAB BLOOD ORDERAB LES Final Result [facility] [address] [place] [address] [phone] * (ABNORMAL) Basic Metabolic Panel (09/28/2025 12:13 AM EST) Sodium 137 135 - 145 mmol/L [facility] Potassium 3.5 3.3 - 5.1 mmol/L [facility] Chloride 111(H) 96 - 108 mmol/L [facility] Carbon Dioxide 15(L) 22 - 29 mmol/L [facility] Anion Gap 15 12 - 20 [facility] Urea Nitrogen (BUN) 19(H) 9 - 16 mg/dL [facility] Creatinine, Serum 0.86 0.5 - 1.4 mg/dL [facility] Creatinine Clr Calc Pharmacy 85.0 [facility] Comment:eGFR (calculated fro m the MDRD study equation) and eCrCl(calculated from the Cockcroft-Gault equation) are based ondifferent parameters and may not yield comparable results.If eCrCl result is absurd, please check patient'sheight/weight. Estimated Glomerular Filt Rate >60 [facility] Comment:Chronic Kidney Disea se: Estimated GFR < 60 mL/min/1.85l5Eckgyi Kidney Disease: Estimated GFR < 15 mL/min/1.73m2 Glucose 102 60 - 115 mg/dL [facility] Calcium 8.6 8.4 - 10.2 mg/dL [facility] 09/28/2025 12:1 3 AM EST 09/28/2025 12:16 AM EST us Generic External Data Provider LAB BLOOD ORDERAB LES Final Result Performing Organization Address City/[facility] Co de Phone Number [facility] [address] [place] [address] [phone] * (ABNORMAL) Hepatic Function Panel (09/28/2025 12:13 AM EST) Bilirubin, Total 0.3 0.0 - 1.0 mg/dL [facility] Bilirubin, Direct 0.2 0.0 - 0.5 mg/dL [facility] Aspartate Amino Transferase 38(H) 5 - 37 U/L [facility] Alanine Aminotransferase 12 0 - 40 U/L [facility] Total Protein 7.8 6.5 - 8.0 g/dL [facility] Albumin Level 3.7 3.5 - 5.0 g/dL [facility] Alkaline Phosphatase 115 39 - 117 U/L [facility] 09/28/2025 12:1 3 AM EST 09/28/2025 12:16 AM EST us Generic External Data Provider LAB BLOOD ORDERAB LES Final Result Performing Organization Address City/[facility] Co de Phone Number [facility] [address] [place] [address] [phone] documented in this encounter Visit Diagnoses Not on filedocumented in this encounter Care Teams Automation Test Engineer Relationship Specialty Start Date End Date Charbel Calles RN [address] [place] [address] Registered Nurse Family Medicine 09/11/25 Conor Vidal 09/11/25 documented as of this encounter
--- OUTSIDE RECORDS SUMMARY | 2025-10-02 05:07 | XMS_ITS ---
Author Organization [employer] Address [address] [place] [address] 7 [place] [address] Care Team Providers Care Flame Cutting Supervisor Name Role Phone Charbel Calles RN Unavailable [phone] Conor Vidal Unavailable CM Complex Status:Outreach In Progress (Enrolling) Start date:09/11/2025 Enrollment reason:ADT Feed Overview ED- Pt went to [facility] on 09/10/25. Case Team Name Relationship Phone Charbel Calles RN(Responsible Staff) Registered [facility] [phone] Continued Care and Services Coordination
--- OUTSIDE RECORDS SUMMARY | 2025-10-02 05:07 | XMS_ITS | Encounter Summary ---
Author Organization [employer] Address [address] [place] [address] [place] [address] Care Team Providers Care Mill Set Up Name Role Phone Charbel Calles RN Unavailable [phone] Conor Vidal Unavailable Encounter Details Date Type Department Care Team ([facility] st Contact Info) Description 09/03/2025 Results Follow-Up [facility] Information Management [address] [place] [address] Provider, Generic External Data XR Chest 2 [...] on filedocumented in this encounter Care Teams Mill Set Up Relationship Specialty Start Date End Date Charbel Calles RN [address] [place] [address] Registered Nurse Family Medicine 09/11/25 Conor Vidal 09/11/25 documented as of this encounter
--- OUTSIDE RECORDS SUMMARY | 2025-10-02 05:07 | XMS_ITS | Encounter Summary ---
Author Organization [facility] Address [address] [facility] [address] [place] [phone] Phone Care Team Providers Care Magisterial District Judge Name Role Phone [facility], [facility] Primary Care Provider Pcp, Unknown Unavailable Unavailable Encounter Details Date Type Department Care Team (Late st Contact Info) Description 02/02/2024 Procedure Pass [facility] Admitting Dept Virtual Department [address] [place] [address] Social History Tobacco Use Types Packs/Day Years [...] on filedocumented in this encounter Care Teams Magisterial District Judge Relationship Specialty Start Date End Date [facility] [address] [place] [phone] PCP - General 10/07/23 Pcp, Unknown 10/07/23 documented as of this encounter Additional Source Comments The information contained in this document represents components of the legal health record. It is not the complete legal health record.[facility]
--- OUTSIDE RECORDS SUMMARY | 2025-10-02 05:07 | XMS_ITS | Clinical Summary ---
Author Organization [facility] Address [address] [place] [address] [address] [place] [address] Care Team Providers Care Rehab Nursing Tech Name Role Phone Charbel Calles RN Unavailable [phone] Conor Vidal Unavailable Allergies No known [...] Patient presented with altered mental status from [facility] where he appeared more lethargic [...] Encounters Date Type Department Care Team Description 09/30/2025 Results Follow-Up [facility] [address] [place] [address] Provider, Generic External Data XR Shoulder 2+ Views Left 09/29/2025 Orders Only GENERIC EXTERNAL DATA DEPARTMENT Provider, Generic External Data 09/29/2025 Results Follow-Up [facility] Information [facility] [address] [place] [address] External Provider, [facility] XR Chest 1 View 09/28/2025 Orders Only GENERIC EXTERNAL DATA DEPARTMENT Provider, Generic External Data 09/27/2025 Orders Only [facility] External Provider, [facility] 09/16/2025 Results Follow-Up [facility] Information [facility] [address] [place] [address] External Provider, [facility] XR Chest 1 View 09/16/2025 Results Follow-Up [facility] Information [facility] [address] [place] [address] Provider, Generic External Data XR Chest 1 View 09/14/2025 Orders Only GENERIC EXTERNAL DATA DEPARTMENT Provider, Generic External Data 09/13/2025 Orders Only [facility] External Provider, [facility] 09/12/2025 Orders Only GENERIC EXTERNAL DATA DEPARTMENT Provider, Generic External Data 09/11/2025 Patient Outreach [facility] [address] [place], [place] [phone] Edith Zuniga, RN 09/11/2025 Patient Outreach [facility] [address] [place] [address] Conor Vidal Care Coordination (C3CM/CHW Conor Vidal, Initial outreach call_lvm ) 09/11/2025 Patient Outreach [address] [address] Conor Vidal Care Coordination (C3/W Conor Vidal, Chart review ) 09/11/2025 Patient Outreach [facility] [address] [place] [address] Charbel Calles, RN Care Coordination (C3- chart review) 09/11/2025 Patient Outreach [address] [address] Jodi Cerda, LAURA 09/08/2025 Results Follow-Up [facility] Information Management [address] [place] [phone] External Provider, [facility] CTA Chest PE Protocal, XR Chest 1 View 09/06/2025 Orders Only [facility] External Provider, [facility] 09/03/2025 Results Follow-Up [facility] Information [address] [address] Provider, Generic External Data XR Chest 2 Views 09/03/2025 Orders Only GENERIC EXTERNAL DATA DEPARTMENT Provider, Generic External Data 08/21/2025 Orders Only GENERIC EXTERNAL DATA DEPARTMENT Provider, Generic External Data 08/14/2025 Orders Only [facility] External Provider, [facility] 08/04/2025 Patient Outreach [address] [address] Conor Vidal Care Coordination (C3/CHW Conor Vidal, TC #6 outreach_closed ) 07/21/2025 Patient Outreach [address] [address] Conor Vidal 07/08/2025 Patient Outreach [facility] [address] [place], [place] [phone] Missy Milner, LAURA 07/07/[address] [address] Mihaela Zhong, LAURA Needs [employer] Appt 07/06/2025 Orders Only GENERIC EXTERNAL DATA DEPARTMENT Provider, Generic External Data 07/02/2025 Orders Only [facility] External Provider, [facility] from Last 3 Months Immunizations [...] PM EST Narrative 09/29/2025 3:41 PM EST [address] [address] XRay Report Signed Patient: Charbel Delgado MR#: [id number] : 1970 Acct:[id number] Age/Sex: 55 / M ADM Date: 09/29/25 Loc: HO.ED Attending Dr: Ordering Physician: Jones Mosher PA-C Date of Service: 09/29/25 Procedure(s): XR shoulder LT min 2V Accession Number(s): [id number] cc: Jones Mosher PA-C; [facility] Reason for Exam: pain, unsure if he [...] by: Elias Smith MD 09/29/2025 03:38 PM [facility] Dictated By: Elias Smith MD Signed By: <Electronically signed by Elias Smith MD in OV> 09/29/25 1538 DD/ 1520 TD/TT: 09/29/25 1526 Crown Blocker: Procedure Note Donotuseinterpreter, Image - 09/29/2025 [facility] [address] [place] [address] XRay Report Signed Patient: Rod DelgadoR#: [id number] : 1970Acct:[id number] Age/Sex: 55 / MADM Date: 09/29/25 Loc: HO.ED Attending Dr: Ordering Physician: Jones Mosher PA-C Date of Service: 09/29/25 Procedure(s): XR shoulder LT min 2V Accession Number(s): [id number] cc: Jones Mosher PA-C; [facility] Reason for Exam: pain, unsure if he [...] 09/29/25 1538 DD/ 1520 TD/TT: 09/29/25 1526 Crown Blocker: [facility] External Provider IMG XR PROCEDURES Final Result * (ABNORMAL) VENOUS BLOOD GAS (09/29/2025 2:53 PM EST) Only the most recent of2 resultswithin the time period is included. VBG pH 7.34 7.32 - 7.43 [facility] Comment:METER #: [id number] additional_comment: Cb bdaweh VBG PCO2 27 mmHg [facility] Comment:METER #: [id number] additional_comment: Cb bdaweh VBG PO2 74 mmHg [facility] Comment:METER #: [id number] additional_comment: Cb bdaweh VBG Base Excess -9.0 mmol/L [facility] Comment:METER #: [id number] additional_comment: Cb bdaweh VBG HCO3 15(L) 22 - 26 mmol/L [facility] Comment:METER #: [id number] additional_comment: Cb bdaweh O2 Sat, Demetrio 90.0 % [facility] Comment:METER #: [id number] additional_comment: Cb bdaweh 09/29/2025 2:53 PM EST 09/29/2025 2:56 PM EST us Generic External Data Provider LAB BLOOD ORDERAB LES Final Result Performing Organization Address City/[facility]/ZIP Co de Phone Number [facility] [address] [place] [phone] * (ABNORMAL) Ethanol (09/29/2025 2:45 PM EST) Only the most recent of7 resultswithin the time period is included. Pathologist [facility] ETHANOL (MG/DL) IN SER/PLAS 401(HH) mg/dL [facility] Comment:Serum/plasma ethanol results are to be used formedical/treatment purposes only. 09/29/2025 2:45 PM EST 09/29/2025 2:50 PM EST us Generic External Data Provider LAB BLOOD ORDERAB LES Final Result Performing Organization Address City/[facility]/ZIP Co de Phone Number [facility] [address] [place] [phone] * (ABNORMAL) CBC auto differential (09/29/2025 2:45 PM EST) Only the most recent of9 resultswithin the time period is included. White Blood Count 6.1 4.8 - 10.8 X10*3/uL [facility] Red Blood Count 3.55(L) 4.60 - 5.80 X10*6/uL [facility] Hemoglobin 10.8(L) 14.0 - 18.0 g/dl [facility] Hematocrit 33.4(L) 42.0 - 52.0 % [facility] Mean Corpuscular Volume 94.1 80.0 - 98.0 fL [facility] Mean Corpuscular Hemoglobin 30.4 27.0 - 33.0 pg [facility] Mean Corpuscular HGB Conc 32.3 31.0 - 36.0 g/dl [facility] Red Cell Distribution Width 16.1(H) 11.0 - 16.0 % [facility] Platelet Count 73(L) 160 - 400 X10*3/uL [facility] Mean Platelet Volume 12.4 9.4 - 12.4 fL [facility] Neutrophils Percent Auto 76.4(H) 45 - 73 % [facility] Imm Gran Pct Auto 0.5(H) 0.0 - 0.4 % [facility] Lymphocytes Percent Auto 11.7(L) 20 - 40 % [facility] Monocytes Percent Auto 10.0 2 - 11 % [facility] Eosinophils Percent Auto 0.2 0 - 4 % [facility] Basophils Percent Auto 1.2 0 - 2 % [facility] NRBC Pct Auto 0.0 0.0 - 0.2 /100WBC [facility] Neutrophils Absolute Auto 4.6 2.0 - 8.3 x10*3/uL [facility] Imm Gran Abs Auto 0.03 0.00 - 0.03 X10*3/uL [facility] Lymphocytes Absolute Auto 0.7(L) 1.2 - 4.9 X10*3/uL [facility] Monocytes Absolute Auto 0.6 0.1 - 1.2 X10*3/uL [facility] Eosinophils Absolute Auto 0.0 0.0 - 0.4 X10*3/uL [facility] Basophils Absolute Auto 0.1 0.0 - 0.2 X10*3/uL [facility] NRBC Abs Auto 0.000 0.0 - 0.012 X10*3/uL [facility] 09/29/2025 2:45 PM EST 09/29/2025 2:50 PM EST us Generic External Data Provider LAB BLOOD ORDERAB LES Final Result [facility] [address] [place] [phone] * Magnesium (09/29/2025 2:45 PM EST) Only the most recent of4 resultswithin the time period is included. Magnesium 1.9 1.6 - 2.6 mg/dL [facility] 09/29/2025 2:45 PM EST 09/29/2025 2:50 PM EST us Generic External Data Provider LAB BLOOD ORDERAB LES Final Result [facility] [address] [place] [phone] [phone] * (ABNORMAL) Comprehensive Metabolic Panel (09/29/2025 2:45 PM EST) Only the most recent of7 resultswithin the time period is included. Sodium 140 135 - 145 mmol/L [facility] Potassium 3.8 3.3 - 5.1 mmol/L [facility] Chloride 111(H) 96 - 108 mmol/L [facility] Carbon Dioxide 16(L) 22 - 29 mmol/L [facility] Anion Gap 17 12 - 20 [facility] Urea Nitrogen (BUN) 15 9 - 16 mg/dL [facility] Creatinine, Serum 0.87 0.5 - 1.4 mg/dL [facility] Creatinine Clr Calc Pharmacy 76.0 [facility] Comment:eGFR (calculated fro m the MDRD study equation) and eCrCl(calculated from the Cockcroft-Gault equation) are based ondifferent parameters and may not yield comparable results.If eCrCl result is absurd, please check patient'sheight/weight. Estimated Glomerular Filt Rate >60 [facility] Comment:Chronic Kidney Disea se: Estimated GFR < 60 mL/min/1.97n1Hcnuoy Kidney Disease: Estimated GFR < 15 mL/min/1.73m2 Glucose 107 60 - 115 mg/dL [facility] Calcium 8.7 8.4 - 10.2 mg/dL [facility] Bilirubin, Total 0.5 0.0 - 1.0 mg/dL [facility] Aspartate Amino Transferase 43(H) 5 - 37 U/L [facility] Alanine Aminotransferase 12 0 - 40 U/L [facility] Total Protein 8.0 6.5 - 8.0 g/dL [facility] Albumin Level 3.7 3.5 - 5.0 g/dL [facility] Alkaline Phosphatase 111 39 - 117 U/L [facility] 09/29/2025 2:45 PM EST 09/29/2025 2:50 PM EST us Generic External Data Provider LAB BLOOD ORDERAB LES Final Result Performing Organization Address City/State/[facility] Co de Phone Number [facility] [address] [place] [phone] * XR Chest 1 View (09/28/2025 4:28 AM EST) Only the most recent of8 resultswithin the time period is included. Anatomical Region Laterality Modality Chest Radiographic Lamar ging 09/28/2025 4:28 AM EST Narrative 09/28/2025 4:30 AM EST [address] [address] XRay Report Signed Patient: Charbel Delgado MR#: [id number] : 1970 Acct:[id number] Age/Sex: 55 / M ADM Date: 09/27/25 Loc: HO.ED Attending Dr: Ordering Physician: Alexandria Sweeney MD Date of Service: 09/28/25 Procedure(s): XR chest 1V Accession Number(s): [id number] cc: [facility]; Alexandria Sweeney MD Reason for Exam: hypoxic [...] in OV> 09/28/[address] DD/ 7 TD/TT: 09/28/25427 Crown Blocker: Procedure Note Donotfernandointerpreter, Image - 09/28/[address] [address] XRay Report Signed Patient: Isaias Delgado#: [id number] : 1970Acct:[id number] Age/Sex: 55 / MADM Date: 09/27/25 Loc: HO.ED Attending Dr: Ordering Physician: Alexandria Sweeney MD Date of Service: 09/28/25 Procedure(s): XR chest 1V Accession Number(s): [id number] cc: [facility]; Alexandria Sweeney MD Reason for Exam: hypoxic [...] in OV> 09/28/[address] DD/ 7 TD/TT: 09/28/25427 Crown Blocker: us [facility] External Provider IMG XR PROCEDURES Final Result * Type and screen (09/28/2025 12:13 AM EST) Blood Type BP [facility] Antibody Screen NEGATIVE [facility] 09/28/2025 12:1 3 AM EST 09/28/2025 12:16 AM EST Generic External Data Provider LAB BLOOD BANK TE ST ORDERABLES Final Result [facility] [address] [place] [phone] * (ABNORMAL) Hepatic Function Panel (09/28/2025 12:13 AM EST) Only the most recent of2 resultswithin the time period is included. Bilirubin, Total 0.3 0.0 - 1.0 mg/dL [facility] Bilirubin, Direct 0.2 0.0 - 0.5 mg/dL [facility] Aspartate Amino Transferase 38(H) 5 - 37 U/L [facility] Alanine Aminotransferase 12 0 - 40 U/L [facility] Total Protein 7.8 6.5 - 8.0 g/dL [facility] Albumin Level 3.7 3.5 - 5.0 g/dL [facility] Alkaline Phosphatase 115 39 - 117 U/L [facility] 09/28/2025 12:1 3 AM EST 09/28/2025 12:16 AM EST us Generic External Data Provider LAB BLOOD ORDERAB LES Final Result Performing Organization Address City/State/[facility] Co de Phone Number [facility] [address] [place] [phone] * (ABNORMAL) Basic Metabolic Panel (09/28/2025 12:13 AM EST) Only the most recent of2 resultswithin the time period is included. Pathologist [facility] Sodium 137 135 - 145 mmol/L [facility] Potassium 3.5 3.3 - 5.1 mmol/L [facility] Chloride 111(H) 96 - 108 mmol/L [facility] Carbon Dioxide 15(L) 22 - 29 mmol/L [facility] Anion Gap 15 12 - 20 [facility] Urea Nitrogen (BUN) 19(H) 9 - 16 mg/dL [facility] Creatinine, Serum 0.86 0.5 - 1.4 mg/dL [facility] Creatinine Clr Calc Pharmacy 85.0 [facility] Comment:eGFR (calculated fro m the MDRD study equation) and eCrCl(calculated from the Cockcroft-Gault equation) are based ondifferent parameters and may not yield comparable results.If eCrCl result is absurd, please check patient'sheight/weight. Estimated Glomerular Filt Rate >60 [facility] Comment:Chronic Kidney Disea se: Estimated GFR < 60 mL/min/1.38v4Ukegkw Kidney Disease: Estimated GFR < 15 mL/min/1.73m2 Glucose 102 60 - 115 mg/dL [facility] Calcium 8.6 8.4 - 10.2 mg/dL [facility] 09/28/2025 12:1 3 AM EST 09/28/2025 12:16 AM EST us Generic External Data Provider LAB BLOOD ORDERAB LES Final Result [facility] [address] [place] [phone] * (ABNORMAL) Urinalysis, Complete, with Reflex to Culture (09/14/2025 2:12 AM EST) Only the most recent of3 resultswithin the time period is included. Color Urine Yellow [facility] Appearance Urine Clear [facility] PH 5.5 5.0 - 9.0 [facility] Glucose Urine UA Negative Negative mg/dL [facility] Urine Blood Negative Negative [facility] Specific [place] - Urine 1.010 1.005 - 1.025 [facility] Urine Protein Negative Neg-Trace mg/dL [facility] Urine Ketones Negative Negative mg/dL [facility] Nitrite Urine Negative Negative [facility] Leukocyte Esterase Urine Trace(A) Negative [facility] RBC Urine 0-2 0 - 2 /HPF [facility] Urine WBC 0-5 0 - 5 /HPF [facility] Urine Squamous Epithelial Cell 0-2 0 - 2 /HPF [facility] Urine Bacteria None Seen None Seen [facility] Hyaline Casts, Urine 0-2 0 - 2 /LPF [facility] 09/14/2025 2:12 AM EST 09/14/2025 2:16 AM EST Narrative [facility] - 09/14/2025 2:30 AM EST Urine, Clean Catch us Generic External Data Provider LAB URINE ORDERAB LES Final Result [facility] [address] [place] [phone] * (ABNORMAL) Drug Monitoring, Panel 1, Screen, Urine (09/14/2025 2:12 AM EST) Only the most recent of3 resultswithin the time period is included. Opiate Screen Urine Not Detected Not Detect [facility] Comment:Opiate cut-off is 30 0 ng/mL.Positive results are unconfirmed and should not be used fornon-medical purposes. Barbiturates, Urine POSITIVE(A) Not Detect [facility] Comment:Barbiturate cut-off is 200 ng/mL.Positive results are unconfirmed and should not be used fornon-medical purposes. Phencyclidine Screen Urine Not Detected Not Detect [facility] Comment:Phencyclidine cut-of f is 25 ng/mL.Positive results are unconfirmed and should not be used fornon-medical purposes. Amphetamine Screen Urine Not Detected Not Detect [facility] Comment:Amphetamine cut-off is 1000 ng/mL.Positive results are unconfirmed and should not be used fornon-medical purposes. Benzodiazepines Screen Urine Not Detected Not Detect [facility] Comment:Benzodiazepine cut-o ff is 200 ng/mL.Positive results are unconfirmed and should not be used fornon-medical purposes. Cocaine Screen Urine Not Detected Not Detect [facility] Comment:Cocaine cut-off is 3 00 ng/mL.Positive results are unconfirmed and should not be used fornon-medical purposes. Cannabinoid Screen Urine Not Detected Not Detect [facility] Comment:Cannabinoid cut-off is 50 ng/mL.Positive results are unconfirmed and should not be used fornon-medical purposes. Methadone Screen, Urine Not Detected Not Detect ng/mL [facility] Comment:Methadone cut-off is 300 ng/mL.Positive results are unconfirmed and should not be used fornon-medical purposes. FENTANYL URINE Not Detected Not Detect [facility] Comment:Fentanyl cut-off is 1 ng/mL.Positive results are unconfirmed and should not be used fornon-medical purposes. Oxycodone Urine Screen Not Detected Not Detect ng/mL [facility] Comment:Oxycodone cut-off is 100 ng/mL.Positive results are unconfirmed and should not be used fornon-medical purposes. Buprenorphine Screen Not Detected Not Detect ng/mL [facility] Comment:Buprenorphine cut-of f is 5 ng/mL.Positive results are unconfirmed and should not be used fornon-medical purposes. 09/14/2025 2:12 AM EST 09/14/2025 2:16 AM EST Generic External Data Provider LAB URINE ORDERAB LES Final Result Performing Organization Address City/[facility]/ZIP Co de Phone Number [facility] [address] [place] [phone] * Lactic Acid (09/14/2025 1:01 AM EDT) Only the most recent of4 resultswithin the time period is included. Lactic Acid 2.0 0.5 - 2.0 mmol/L [facility] 09/14/2025 1:01 AM EDT 09/14/2025 1:04 AM EDT Generic External Data Provider LAB BLOOD ORDERAB LES Final Result Performing Organization Address City/[facility]/ZIP Co de Phone Number [facility] [address] [place] [phone] * Blood Culture (First) (09/13/2025 10:41 PM EDT) Only the most recent of2 resultswithin the time period is included. Blood Venous blood specimen / Unknown 09/13/2025 10:41 PM EDT 09/13/2025 10:51 PM EDT Comment:Blood Narrative [facility] - 09/19/2025 12:51 AM EST Blood Culture (First) No growth after 5 days. Specimen Source: Blood Generic External Data Provider LAB MICROBIOLOGY - GENERAL ORDERABLES Final Result Performing Organization Address City/[facility]/ZIP Co de Phone Number [facility] [address] [place] [phone] * Blood Culture (Second) (09/13/2025 10:41 PM EDT) Only the most recent of2 resultswithin the time period is included. Blood Venous blood specimen / Unknown 09/13/2025 10:41 PM EDT 09/13/2025 10:54 PM EDT Comment:Blood Narrative [facility] - 09/19/2025 12:54 AM EST Blood Culture (Second) No growth after 5 days. Specimen Source: Blood Generic External Data Provider LAB MICROBIOLOGY - GENERAL ORDERABLES Final Result Performing Organization Address [facility] Phone Number [facility] [address] [place] [phone] * High Sensitivity Troponin I (09/13/2025 10:41 PM EDT) Only the most recent of5 resultswithin the time period is included. [facility] TROPONIN I HIGH SENSITIVITY <2.7 <3.5 - 35.0 ng/L [facility] Comment:The Yarbrough high sens itivity Troponin-I results should beused in conjunction with other diagnostic information suchas ECG, clinical observations and information, and patientsymptoms to aid in the diagnosis of ME. 09/13/2025 10:4 1 PM EDT 09/13/2025 10:51 PM EDT Generic External Data Provider LAB BLOOD ORDERAB LES Final Result Performing Organization Address [facility] Co de Phone Number [facility] [address] [place] [phone] * SARS-CoV-2 RNA, Influenza A/B, and RSV RNA, Ql NAAT (09/13/2025 10:41 PM EDT) [facility] Influenza A PCR NEGATIVE Negative [facility] Influenza B PCR NEGATIVE Negative [facility] Resp Syncy Virus RNA Qual PCR NEGATIVE Negative [facility] SARS COV2 PCR NEGATIVE Negative [facility] Comment:All test results mus [...] use by authorized laboratories.Testing performed on the M[employer]vicespert utilizingreal-time RT-PCR.All SARS CoV2 and positive influenza A/B results arereported to [facility]. 09/13/2025 10:4 1 PM EDT 09/13/2025 10:51 PM EDT Generic External Data Provider LAB MICROBIOLOGY - GENERAL ORDERABLES Final Result [facility] [address] [place] [phone] * NT-proBNP (09/13/2025 10:41 PM EDT) Only the most recent of5 resultswithin the time period is included. NT-proBNP 174.0 <300 pg/mL [facility] Comment:Reference Range:Age Group (years) NT-proBNP (pg/ml) InterpretationAll <300 Negative: HF unlikelyFor patients presenting to the ED with clinical suspicion ofnew onset or worsening HF, see below:18 to <50 >299.9 to <450.0 Grayzone: Cykyhkxb10 to 75 >299.9 to <900.0 other causes of>75 >299.9 to <1800.0 NT-proBNP [id number] to <50 >449.9 Positive: HF [id number] >899.9>75 >1799.9Note: Elevated NT-proBNP levels should be interpreted inthe context of other clinical information. 09/13/2025 10:4 1 PM EDT 09/13/2025 10:51 PM EDT us Generic External Data Provider LAB BLOOD ORDERAB LES Final Result Performing Organization Address [facility] Co de Phone Number [facility] [address] [place] [phone] * (ABNORMAL) Lactic Acid (09/13/2025 10:41 PM EDT) Only the most recent of3 resultswithin the time period is included. Lactic Acid 2.1(HH) 0.5 - 2.0 mmol/L [facility] [facility] Comment:Critical value for t est(s): LACTA Results called to gildardo back by:NATAN Person calling: DEVENDRA Date: 09/13/25Time: 231 09/13/2025 10:4 1 PM EDT 09/13/2025 10:51 PM EDT Generic External Data Provider LAB BLOOD ORDERAB LES Final Result Performing Organization Address [facility] de Phone Number [facility] [address] [place] [phone] * Culture, Urine, Routine (09/12/2025 10:15 PM EDT) Urine Urine specimen obtained by clean catch procedure / Unknown 09/12/2025 10:15 PM EDT 09/12/2025 10:15 PM EDT Comment:[facility] Narrative [facility] - 09/15/2025 7:48 AM EST Enterococcus faecalis Quant 10,000 to 50,000 cfu/mL Enterococcus faecalis: Ampicillin <=2(S) Enterococcus faecalis: Levofloxacin >=8(R) Enterococcus faecalis: Nitrofurantoin 32(S) Enterococcus faecalis: Tetracycline >=16(R) Enterococcus faecalis: Vancomycin 2(S) Specimen Source: Urine clean catch Generic External Data Provider LAB MICROBIOLOGY - GENERAL ORDERABLES Final Result Performing Organization Address [facility] Co de Phone Number [facility] [address] [place] [phone] * CTA Chest PE Protocal (09/06/2025 12:04 PM EDT) Anatomical Region Laterality Modality Body, Chest Computed Tomogra phy 09/06/2025 12:0 4 PM EDT Narrative 09/06/2025 12:06 PM EDT [address] [address] [address] Scan Report Signed Patient: Charbel Delgado MR#: [id number] : 1970 Acct:[id number] Age/Sex: 55 / M ADM Date: 09/06/25 Loc: HO.ED Attending Dr: Ordering Physician: Abril Sam Date of Service: 09/06/25 Procedure(s): CT angio chest PE protocol Accession Number(s): [id number] cc: Abril Sam; [facility] Report Number: [id number]: Total DLP = 188.00 mGy-cm Reason for [...] in OV> 09/06/25 1205 DD/ 1204 TD/TT: 09/06/251203 Crown Blocker: Procedure Note Donotuseinterpreter, Image - 09/06/[address] [address] [address] Scan Report Signed Patient: Isaias Delgado#: [id number] : 1970Acct:[id number] Age/Sex: 55 / MADM Date: 09/06/25 Loc: HO.ED Attending Dr: Ordering Physician: Abril Sam Date of Service: 09/06/25 Procedure(s): CT angio chest PE protocol Accession Number(s): [id number] cc: Abril Sam; [facility] Report Number: [id number]: Total DLP = 188.00 mGy-cm Reason for [...] in OV> 09/06/251204 DD/ 03 TD/TT: 09/06/251203 Crown Blocker: [facility] External Provider IMG CT PROCEDURES Edited Result - Final * (ABNORMAL) Sed Rate by Modified Westergren (09/06/2025 8:50 AM EDT) Erythrocyte Sedimentation Rate 46(H) 0 - 15 MM/HR [facility] Comment:Patients with polycy themia and many hemoglobin abnormalitiesmay have depressed sed rates whereas patients with anemiamay have elevated sed rates. 09/06/2025 8:50 AM EDT 09/06/2025 8:54 AM EDT Generic External Data Provider LAB BLOOD ORDERAB LES Final Result Performing Organization Address [facility] Co de Phone Number [facility] [address] [place] [phone] * (ABNORMAL) C-reactive Protein (09/06/2025 8:50 AM EDT) Only the most recent of2 resultswithin the time period is included. [facility] C Reactive Protein 0.57(H) < or = 0.50 mg/dL [facility] 09/06/2025 8:50 AM EDT 09/06/2025 8:54 AM EDT Generic External Data Provider LAB BLOOD ORDERAB LES Final Result Performing Organization Address [facility] de Phone Number [facility] [address] [place] [phone] * Influenza A B2 ID NOW (Yarbrough) (09/06/2025 8:42 AM EDT) Pathologist [facility] IDNOW SERIAL# [id number] [facility] Influenza A Negative Negative [facility] Influenza B2 Negative Negative [facility] Influenza A B2 Note See Note [facility] Comment:The Yarbrough ID NOW In fluenza [...] LAB MICROBIOLOGY - GENERAL ORDERABLES Final Result [facility] [address] [place] [phone] * COVID-19 ID NOW (YARBROUGH) (09/06/2025 8:42 AM EDT) IDNOW SERIAL# [id number] [facility] COVID-19 TEST Negative Negative [facility] COVID-19 NOTE See Note [facility] Comment: Results are for the identification of SARS-CoV2 RNA. TheSARS-CoV2 RNA is generally detectable in respiratory samplesduring the acute phase of infection. Positive results areindicative of the presence of SARS-CoV-2 RNA; clinicalcorrelation with patient history and other diagnosticinformation is necessary to determine patient infectionstatus. Positive results do not rule out bacterial infectionor co- infection with other viruses.Testing facilities within the [facility] and [facility] are required to report all positive [...] GNOSTICS ORDERABLES Final Result Performing Organization Address [facility] Co de Phone Number [facility] [address] [place] [address] [phone] * Slide Review (09/06/2025 12:46 AM EDT) Only the most recent of3 resultswithin the time period is included. Slide Review VERIFIED [facility] 09/06/2025 12:4 6 AM EDT 09/06/2025 12:51 AM EDT Generic External Data Provider LAB BLOOD ORDERAB LES Final Result Performing Organization Address [facility] de Phone Number [facility] [address] [place] [address] [phone] * HOLD LT BLUE - POSSIBLE COAG (09/06/2025 12:46 AM EDT) Only the most recent of2 resultswithin the time period is included. Hold Lt Blue - Possible Coag SEE NOTE [facility] Comment:Specimen will be hel d untested for 4 hours. Call Hematologyif testing is desired. 09/06/2025 12:4 6 AM EDT 09/06/2025 12:54 AM EDT Generic External Data Provider LAB BLOOD ORDERAB LES Final Result Performing Organization Address [facility] Co de Phone Number [facility] [address] [place] [address] [phone] * XR Chest 2 Views (09/03/2025 12:15 PM EDT) Anatomical Region Laterality Modality Chest Radiographic Lamar ging 09/03/2025 12:1 5 PM EDT Narrative 09/03/2025 12:34 PM EDT [address] [address] XRay Report Signed Patient: Charbel Delgado MR#: [id number] : 1970 Acct:[id number] Age/Sex: 55 / M ADM Date: 09/03/25 Loc: HO.ED Attending Dr: Ordering Physician: Johanna Liao Date of Service: 09/03/25 Procedure(s): XR chest 2V Accession Number(s): [id number] cc: [facility]; Johanna Liao Reason for Exam: hypoxic EXAMINATION: [...] 09/03/25 1231 DD/ 1215 TD/TT: 09/03/25 1225 Crown Blocker: Procedure Note Donotuseinterpreter, Image - 09/03/2025 [place] [address] XRay Report Signed Patient: Isaias Delgado#: [id number] : 1970Acct:[id number] Age/Sex: 55 / MADM Date: 09/03/25 Loc: HO.ED Attending Dr: Ordering Physician: Johanna Liao Date of Service: 09/03/25 Procedure(s): XR chest 2V Accession Number(s): [id number] cc: [facility]; Johanna Liao Reason for Exam: hypoxic EXAMINATION: [...] 09/03/25 1231 DD/ 1215 TD/TT: 09/03/25 1225 Crown Blocker: [facility] External Provider IMG XR PROCEDURES Final Result * Hold Lavender - Possible Hematology (09/03/2025 11:54 AM EDT) Hold Lavender - Possible Hematololgy SEE NOTE [facility] Comment:Specimen will be hel d untested for 8 hours. Call Hematologyif testing is desired. 09/03/2025 11:5 4 AM EDT 09/03/2025 12:02 PM EDT Generic External Data Provider HISTORICAL/NON OR DERABLE LABS Final Result [facility] [address] [place] [phone] * Lipase (09/03/2025 11:54 AM EDT) Only the most recent of2 resultswithin the time period is included. Lipase 25 8 - 78 U/L [facility] 09/03/2025 11:5 4 AM EDT 09/03/2025 12:03 PM EDT us Generic External Data Provider LAB BLOOD ORDERAB LES Final Result Performing Organization Address [facility] Co de Phone Number [facility] [address] [place] [phone] * Urinalysis w/reflex microscopic (08/21/2025 11:09 PM EDT) Color Urine Dark Yellow [facility] Appearance Urine Clear [facility] PH 5.0 5.0 - 9.0 [facility] Glucose Urine UA Negative Negative mg/dL [facility] Urine Blood Negative Negative [facility] Specific [place] - Urine 1.015 1.005 - 1.025 [facility] Urine Protein Negative Neg-Trace mg/dL [facility] Urine Ketones Negative Negative mg/dL [facility] Nitrite Urine Negative Negative [facility] Leukocyte Esterase Urine Negative Negative [facility] 08/21/2025 11:0 9 PM EDT 08/21/2025 11:13 PM EDT Narrative [facility] - 08/21/2025 11:16 PM EDT [id number], Clean Catch us Generic External Data Provider LAB URINE ORDERAB LES Final Result Performing Organization Address [facility] Co de Phone Number [facility] [address] [place] [address] [phone] * (ABNORMAL) Lipid Panel, Standard (08/21/2025 8:16 PM EDT) Triglycerides 62 <150 mg/dL [facility] Comment:Desirable Triglyceri de: less than 150 mg/dLBorderline High Triglyceride 150-199 mg/dLHigh Triglyceride: 200-499 mg/dLVery High Triglyceride: greater than or equal to 5OO mg/dL Cholesterol 118 <200 mg/dL [facility] Comment:Desirable Cholestero l: less than 200 mg/dLBorderline High Cholesterol: 200-239 mg/dLHigh Cholesterol: greater than 239 mg/dL LDL Cholesterol Calculated 77 <100 mg/dL [facility] Comment:Desirable LDL: less than 100 mg/dLNear Optimal/Above Optimal LDL: 110- 129 mg/dLBorderline High LDL: 130-159 mg/dLHigh LDL: 160-189 mg/dLVery High LDL: greater than or equal to 190 mg/dL HDL Cholesterol 29(L) >40 mg/dL [facility] Comment:Desirable HDL: great er than 40 mg/dL Note: This HDL assay may give artificially low results in patients with liver disease. 08/21/2025 8:16 PM EDT 08/21/2025 8:22 PM EDT us Generic External Data Provider LAB BLOOD ORDERAB LES Final Result Performing Organization Address City/State/[facility] Co de Phone Number [facility] [address] [place] [phone] * XR Foot 3+ Views Right (08/15/2025 8:10 AM EDT) Anatomical Region Laterality Modality Lower Extremities, Foot Right Radiogra phic Imaging 08/15/2025 8:10 AM EDT Narrative 08/15/2025 8:34 AM EDT [place] [address] XRay Report Signed Patient: Charbel Delgado MR#: [id number] : 1970 Acct:[id number] Age/Sex: 55 / M ADM Date: 08/15/25 Loc: [facility]: Yazmin WALLACE Ordering Physician: Yazmin Shafer Date of Service: 08/15/25 Procedure(s): XR foot RT min 3V Accession Number(s): [id number] cc: Yazmin Shafer; [facility] Reason for Exam: right foot pain EXAMINATION: [...] MD in OV> 08/15/2531 DD/ 9 TD/TT: 08/15/25 0820 Crown Blocker: Procedure Note Donotuseinterpreter, Image - 08/15/2025 [place] [address] XRay Report Signed Patient: Isaias Delgado#: [id number] : 1970Acct:[id number] Age/Sex: 55 / MADM Date: 08/15/25 Loc: [facility]: Yazmin WALLACE Ordering Physician: Yazmin Shafer Date of Service: 08/15/25 Procedure(s): XR foot RT min 3V Accession Number(s): [id number] cc: Yazmin Shafer; [facility] Reason for Exam: right foot pain EXAMINATION: [...] OV> 08/15/25830 DD/ 9 TD/TT: 08/15/25 0820 Crown Blocker: [facility] External Provider IMG XR PROCEDURES Final Result * B Type Natriuretic Peptide (BNP) (07/06/2025 5:58 PM EDT) B Type Natriuretic Peptide 100 <100 pg/mL [facility] 07/06/2025 5:58 PM EDT 07/06/2025 6:06 PM EDT Generic External Data Provider LAB BLOOD ORDERAB LES Final Result [facility] [address] [place] [phone] from Last 3 Months Insurance [employer] [facility] C3 Care Teams Rehab Nursing Tech Relationship Specialty Start Date End Date Charbel Calles RN [address] [place] [phone] Registered Nurse Family Medicine 09/11/25 Conor Vidal 09/11/25
--- OUTSIDE RECORDS SUMMARY | 2025-10-02 05:07 | XMS_ITS | Encounter Summary ---
Author Organization [facility] Address [address] [place] [phone] Phone Care Team Providers Care Ampoule Washing Machine Operator Name Role Phone Elbert Hayward MD Primary Care Provider [facility], [facility] Primary Care Provider Pcp, Unknown Unavailable Unavailable Encounter Details Date Type Department Care Team (Late st Contact Info) Description 10/06/2023 Procedure Pass [facility], Ct Scan - [address] [address] Social History Tobacco Use Types Packs/Day Years [...] on filedocumented in this encounter Care Teams Ampoule Washing Machine Operator Relationship Specialty Start Date End Date Elbert Hayward MD PCP - General 05/13/14 10/06/23 [facility], MD Marya [address] [place] [address] PCP - General 10/07/23 Pcp, Unknown 10/07/23 documented as of this encounter Additional Source Comments The information contained in this document represents components of the legal health record. It is not the complete legal health record.[facility]
--- OUTSIDE RECORDS SUMMARY | 2025-10-02 05:07 | XMS_ITS | Encounter Summary ---
Author Organization [facility] Address [address] [facility] [address] [place] [phone] Phone Care Team Providers Care Telegraphic Typewriter Repairer Name Role Phone [facility] Primary Care Provider Pcp, Unknown Unavailable Unavailable Encounter Details Date Type Department Care Team ([facility] st Contact Info) Description 10/31/2023 Procedure Pass [facility] Admitting Dept Virtual Department [address] [place] [phone] Social History Tobacco Use Types Packs/Day Years [...] on filedocumented in this encounter Care Teams Telegraphic Typewriter Repairer Relationship Specialty Start Date End Date [facility] [address] [place] [address] PCP - General 10/07/23 Pcp, Unknown 10/07/23 documented as of this encounter Additional Source Comments The information contained in this document represents components of the legal health record. It is not the complete legal health record.[facility]
--- OUTSIDE RECORDS SUMMARY | 2025-10-02 05:07 | XMS_ITS | Encounter Summary ---
Author Organization [facility] Address [address] [place] [address] [address] [place] [address] Care Team Providers Care Instrument Setter Name Role Phone Charbel Calles RN Unavailable [phone] Conor Vidal Unavailable Encounter Details Date [...] PM EST Narrative 09/29/2025 3:41 PM EST [address] [address] XRay Report Signed Patient: Charbel Delgado MR#: [id number] : 1970 Acct:[id number] Age/Sex: 55 / M ADM Date: 09/29/25 Loc: HO.ED Attending Dr: Ordering Physician: Jones Mosher PA-C Date of Service: 09/29/25 Procedure(s): XR shoulder LT min 2V Accession Number(s): [id number] cc: Jones Mosher PA-C; [facility] Reason for Exam: pain, unsure if [...] by: Elias Smith MD 09/29/2025 03:38 PM [facility] Dictated By: Elias Smith MD Signed By: <Electronically signed by Elias Smith MD in OV> 09/29/25 1538 DD/ 1520 TD/TT: 09/29/25 1526 [place] Specialist: Procedure Note Donotuseinterpreter, Image - 09/29/[address] [address] XRay Report Signed Patient: Rod DelgadoR#: [id number] : 1970Acct:[id number] Age/Sex: 55 / MADM Date: 09/29/25 Loc: HO.ED Attending Dr: Ordering Physician: Jones Mosher PA-C Date of Service: 09/29/25 Procedure(s): XR shoulder LT min 2V Accession Number(s): [id number] cc: Jones Mosher PA-C; [facility] Reason for Exam: pain, unsure if [...] 09/29/25 1538 DD/ 1520 TD/TT: 09/29/25 1526 [place] Specialist: [facility] External Provider IMG XR PROCEDURES Final Result * (ABNORMAL) VENOUS BLOOD GAS (09/29/2025 2:53 PM EST) VBG pH 7.34 7.32 - 7.43 [facility] Comment:METER #: [id number] additional_comment: Cb bdaweh VBG PCO2 27 mmHg [facility] Comment:METER #: [id number] additional_comment: Cb bdaweh VBG PO2 74 mmHg [facility] Comment:METER #: [id number] additional_comment: Cb bdaweh VBG Base Excess -9.0 mmol/L [facility] Comment:METER #: [id number] additional_comment: Cb bdaweh VBG HCO3 15(L) 22 - 26 mmol/L [facility] Comment:METER #: [id number] additional_comment: Cb bdaweh O2 Sat, Demetrio 90.0 % [facility] Comment:METER #: [id number] additional_comment: Cb bdaweh 09/29/2025 2:53 PM EST 09/29/2025 2:56 PM EST Generic External Data Provider LAB BLOOD ORDERAB LES Final Result Performing Organization Address [facility] de Phone Number [facility] [address] [place] [phone] * Magnesium (09/29/2025 2:45 PM EST) [facility] Magnesium 1.9 1.6 - 2.6 mg/dL [facility] 09/29/2025 2:45 PM EST 09/29/2025 2:50 PM EST Generic External Data Provider LAB BLOOD ORDERAB LES Final Result Performing Organization Address [facility] Phone Number [facility] [address] [place] [phone] * (ABNORMAL) Comprehensive Metabolic Panel (09/29/2025 2:45 PM EST) Pathologist [facility] Sodium 140 135 - 145 mmol/L [facility] Potassium 3.8 3.3 - 5.1 mmol/L [facility] Chloride 111(H) 96 - 108 mmol/L [facility] Carbon Dioxide 16(L) 22 - 29 mmol/L [facility] Anion Gap 17 12 - 20 [facility] Urea Nitrogen (BUN) 15 9 - 16 mg/dL [facility] Creatinine, Serum 0.87 0.5 - 1.4 mg/dL [facility] Creatinine Clr Calc Pharmacy 76.0 [facility] Comment:eGFR (calculated fro m the MDRD study equation) and eCrCl(calculated from the Cockcroft-Gault equation) are based ondifferent parameters and may not yield comparable results.If eCrCl result is absurd, please check patient'sheight/weight. Estimated Glomerular Filt Rate >60 [facility] Comment:Chronic Kidney Disea se: Estimated GFR < 60 mL/min/1.70q8Andoep Kidney Disease: Estimated GFR < 15 mL/min/1.73m2 Glucose 107 60 - 115 mg/dL [facility] Calcium 8.7 8.4 - 10.2 mg/dL [facility] Bilirubin, Total 0.5 0.0 - 1.0 mg/dL [facility] Aspartate Amino Transferase 43(H) 5 - 37 U/L [facility] Alanine Aminotransferase 12 0 - 40 U/L [facility] Total Protein 8.0 6.5 - 8.0 g/dL [facility] Albumin Level 3.7 3.5 - 5.0 g/dL [facility] Alkaline Phosphatase 111 39 - 117 U/L [facility] 09/29/2025 2:45 PM EST 09/29/2025 2:50 PM EST Generic External Data Provider LAB BLOOD ORDERAB LES Final Result Performing Organization Address [facility] Co de Phone Number [facility] [address] [place] [phone] * (ABNORMAL) Ethanol (09/29/2025 2:45 PM EST) ETHANOL (MG/DL) IN SER/PLAS 401(HH) mg/dL [facility] Comment:Serum/plasma ethanol results are to be used formedical/treatment purposes only. 09/29/2025 2:45 PM EST 09/29/2025 2:50 PM EST Generic External Data Provider LAB BLOOD ORDERAB LES Final Result Performing Organization Address [facility] Co de Phone Number [facility] [address] [place] [phone] * (ABNORMAL) CBC auto differential (09/29/2025 2:45 PM EST) Pathologist [facility] White Blood Count 6.1 4.8 - 10.8 X10*3/uL [facility] Red Blood Count 3.55(L) 4.60 - 5.80 X10*6/uL [facility] Hemoglobin 10.8(L) 14.0 - 18.0 g/dl [facility] Hematocrit 33.4(L) 42.0 - 52.0 % [facility] Mean Corpuscular Volume 94.1 80.0 - 98.0 fL [facility] Mean Corpuscular Hemoglobin 30.4 27.0 - 33.0 pg [facility] Mean Corpuscular HGB Conc 32.3 31.0 - 36.0 g/dl [facility] Red Cell Distribution Width 16.1(H) 11.0 - 16.0 % [facility] Platelet Count 73(L) 160 - 400 X10*3/uL [facility] Mean Platelet Volume 12.4 9.4 - 12.4 fL [facility] Neutrophils Percent Auto 76.4(H) 45 - 73 % [facility] Imm Gran Pct Auto 0.5(H) 0.0 - 0.4 % [facility] Lymphocytes Percent Auto 11.7(L) 20 - 40 % [facility] Monocytes Percent Auto 10.0 2 - 11 % [facility] Eosinophils Percent Auto 0.2 0 - 4 % [facility] Basophils Percent Auto 1.2 0 - 2 % [facility] NRBC Pct Auto 0.0 0.0 - 0.2 /100WBC [facility] Neutrophils Absolute Auto 4.6 2.0 - 8.3 x10*3/uL [facility] Imm Gran Abs Auto 0.03 0.00 - 0.03 X10*3/uL [facility] Lymphocytes Absolute Auto 0.7(L) 1.2 - 4.9 X10*3/uL [facility] Monocytes Absolute Auto 0.6 0.1 - 1.2 X10*3/uL [facility] Eosinophils Absolute Auto 0.0 0.0 - 0.4 X10*3/uL [facility] Basophils Absolute Auto 0.1 0.0 - 0.2 X10*3/uL [facility] NRBC Abs Auto 0.000 0.0 - 0.012 X10*3/uL [facility] 09/29/2025 2:45 PM EST 09/29/2025 2:50 PM EST us Generic External Data Provider LAB BLOOD ORDERAB LES Final Result Performing Organization Address City/State/[facility] Co de Phone Number [facility] [address] [place] [address] [phone] documented in this encounter Visit Diagnoses Not on filedocumented in this encounter Care Teams Instrument Setter Relationship Specialty Start Date End Date Charbel Calles RN [address] [place] [address] Registered Nurse Family Medicine 09/11/25 Conor Vidal 09/11/25 documented as of this encounter
--- OUTSIDE RECORDS SUMMARY | 2025-10-02 05:07 | XMS_ITS | Encounter Summary ---
Author Organization 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 Name Role Phone [facility], [facility] Primary Care Provider Pcp, Unknown Unavailable Unavailable Encounter Details Date Type Department Care Team (Late st Contact Info) Description 01/04/2024 Transcribe Orders [facility] Phleb [address] [address] Missy Miranda PA [address] [place] [phone] [email or web address] Need for hepatitis C screening test (Primary [...] EST) FERRITIN 168 30 - 400 ug/L [facility] Blood 01/04/2024 9:22 AM EST 01/04/2024 9:53 AM EST Missy WALLACE LAB BLOOD BKR ORDERABLES Final Result Performing Organization Address City/[facility]/ZIP Co de Phone Number [address] [address] * (ABNORMAL) PT-INR (01/04/2024 9:22 AM EST) Pathologist [facility] PT 15.9(H) 10.2 - 12.9 sec [facility] INR 1.4(H) 0.9 - 1.1 [facility] Comment:Therapeutic range fo r oral Vitamin K antagonists: 2.0-3.5 Blood 01/04/2024 9:22 AM EST 01/04/2024 9:53 AM EST Missy WALLACE LAB BLOOD BKR ORDERABLES Final Result Performing Organization Address City/[facility]/ZIP Co de Phone Number [address] [address] * Iron and iron binding capacity (01/04/2024 9:22 AM EST) Pathologist [facility] IRON 81 45 - 160 ug/dL [facility] IRON BINDING CAPACITY 326 228 - 428 ug/dL [facility] TRANSFERRIN SATURAT. 25 20 - 55 % [facility] Blood 01/04/2024 9:22 AM EST 01/04/2024 9:53 AM EST Missy WALLACE LAB BLOOD BKR ORDERABLES Final Result Performing Organization Address City/[facility]/ZIP Co de Phone Number [address] [address] * Lipase (01/04/2024 9:22 AM EST) Pathologist [facility] LIPASE 35 16 - 63 U/L [facility] Blood 01/04/2024 9:22 AM EST 01/04/2024 9:53 AM EST Missy WALLACE LAB BLOOD BKR ORDERABLES Final Result Performing Organization Address [facility]/ZIP Co de Phone Number [address] [address] * Hepatitis C antibody, qualitative (01/04/2024 9:22 AM EST) Pathologist [facility] HCV NON-REACTIV E NON-REACTI VE [facility] Blood 01/04/2024 9:22 AM EST 01/04/2024 9:53 AM EST Missy WALLACE LAB BLOOD BKR ORDERABLES Final Result Performing Organization Address [facility] Co de Phone Number [address] [address] * Hepatitis B surface antibody (01/04/2024 9:22 AM EST) Pathologist [facility] HBV SURFACE ANTIBODY Negative [facility] Comment: Unvaccinated: Negative Vaccinated: Positive Blood 01/04/2024 9:22 AM EST 01/04/2024 9:53 AM EST Missy WALLACE LAB BLOOD BKR ORDERABLES Final Result Performing Organization Address City/[facility]/ZIP Co de Phone Number [address] [address] * Hepatitis B surface antigen (01/04/2024 9:22 AM EST) HBV SURFACE ANTIGEN NON-REACTI VE NON-REACTI VE [facility] Blood 01/04/2024 9:22 AM EST 01/04/2024 9:53 AM EST Missy WALLACE LAB BLOOD BKR ORDERABLES Final Result Performing Organization Address [facility] Co de Phone Number [address] [address] * Hepatitis B core antibody, total (01/04/2024 9:22 AM EST) HEP B CORE AB, TOT NON-REACTI VE NON-REACTI VE [facility] Blood 01/04/2024 9:22 AM EST 01/04/2024 9:53 AM EST Missy WALLACE LAB BLOOD BKR ORDERABLES Final Result Performing Organization Address [facility] Co de Phone Number [address] [address] * HEPATITIS A ANTIBODY, TOTAL (01/04/2024 9:22 AM EST) HAV TOTAL AB NON-REACTI VE NON-REACTI VE [facility] Blood 01/04/2024 9:22 AM EST 01/04/2024 9:53 AM EST Missy WALLACE LAB BLOOD BKR ORDERABLES Final Result Performing Organization Address City/[facility]/ZIP Co de Phone Number [address] [address] * (ABNORMAL) GGT (Gamma glutamyl transferase) (01/04/2024 9:22 AM EST) Pathologist [facility] GGT 54(H) 11 - 51 U/L [facility] Blood 01/04/2024 9:22 AM EST 01/04/2024 9:53 AM EST Missy WALLACE LAB BLOOD BKR ORDERABLES Final Result [address] [address] * C-Reactive Protein (01/04/2024 9:22 AM EST) [facility] C REACTIVE PROTEIN <3.0 0.0 - 4.0 mg/L [facility] Blood 01/04/2024 9:22 AM EST 01/04/2024 9:53 AM EST Missy WALLACE LAB BLOOD BKR ORDERABLES Final Result [address] [address] * (ABNORMAL) Comprehensive metabolic panel (01/04/2024 9:22 AM EST) Pathologist [facility] SODIUM 137 133 - 146 mmol/L [facility] POTASSIUM 4.5 3.3 - 5.1 mmol/L [facility] CHLORIDE 105 96 - 108 mmol/L [facility] CO2 22 21 - 35 mmol/L [facility] BUN 14 6 - 19 mg/dL [facility] CREATININE 0.80 0.5 - 1.5 mg/dL [facility] GLUCOSE 104(H) 70 - 99 mg/dL [facility] ALBUMIN 4.1 3.9 - 4.8 g/dL [facility] TOTAL PROTEIN 8.1(H) 6.5 - 8.0 g/dL [facility] CALCIUM 10.4(H) 8.4 - 10.3 mg/dL [facility] ALKALINE PHOSPHATASE 118(H) 39 - 117 U/L [facility] TOTAL BILIRUBIN 0.6 0.0 - 1.2 mg/dL [facility] AST 25 0 - 37 U/L [facility] ALT 7 0 - 40 U/L [facility] GLOBULIN 4.0 1 - 4.8 g/dL [facility] EGFR 105 >59 mL/min/1.7 3m2 [facility] Comment:Estimated glomerular filtration rate calculated using the CKD-EPI refit equation. ANION GAP 15 10 - 20 mmol/L [facility] Blood 01/04/2024 9:22 AM EST 01/04/2024 9:53 AM EST Missy WALLACE LAB BLOOD BKR ORDERABLES Final Result [address] [address] * (ABNORMAL) CBC and differential (01/04/2024 9:22 AM EST) WBC 3.17(L) 4.00 - 11.00 K/uL [facility] RBC 3.41(L) 4.23 - 5.82 M/uL [facility] HGB 10.7(L) 13.4 - 17.5 g/dL [facility] HCT 33.8(L) 37.0 - 51.0 % [facility] PLT 64(L) 140 - 430 K/uL [facility] Comment:Consistent with prev ious result. MCV 99.1(H) 78.0 - 97.0 fL [facility] MCH 31.4 25.0 - 33.0 pg [facility] MCHC 31.7(L) 32.0 - 36.0 g/dL [facility] RDW 13.0 11.0 - 15.0 % [facility] MPV 13.2(H) 8.4 - 12.8 fl [facility] DIFF METHOD Auto [facility] NEUTS 57.2 43.0 - 75.0 % [facility] LYMPHS 24.9 18.2 - 47.4 % [facility] MONOS 12.0(H) 4.00 - 11.00 % [facility] EOS 4.7 0.0 - 8.0 % [facility] BASOS 0.9 0.0 - 2.0 % [facility] Granulocytes, immature (%) 0.3 0.0 - 0.9 % [facility] ABSOLUTE NEUTS 1.81 1.80 - 7.70 K/uL [facility] ABSOLUTE LYMPHS 0.79(L) 1.00 - 3.10 K/uL [facility] ABSOLUTE MONOS 0.38 0.20 - 0.80 K/uL [facility] ABSOLUTE EOS 0.15 0.00 - 0.80 K/uL [facility] ABSOLUTE BASOS 0.03 0.00 - 0.09 K/uL [facility] Granulocytes, immature 0.01 0.00 - 0.05 K/uL [facility] Blood 01/04/2024 9:22 AM EST 01/04/2024 9:53 AM EST Missy Miranda ME LAB BLOOD BKR ORDERABLES Final Result [address] [address] * (ABNORMAL) Immunoglobulin A (01/04/2024 9:22 AM EST) IgA 436(H) 70 - 400 mg/dL [facility] Blood 01/04/2024 9:22 AM EST 01/04/2024 9:53 AM EST [facility] BKR ORDERABLES Final Result [address] [address] * Tissue transglutaminase IgA (01/04/2024 9:22 AM EST) TTG IGA ANTIBODY 1.9 <4.0 (Negative) U/mL [facility] [address] Blood 01/04/2024 9:22 AM EST 01/04/2024 9:53 AM EST Missy WALLACE LAB BLOOD BKR ORDERABLES Final Result [facility] [address] [place] [address] * Smooth Muscle Antibody (01/04/2024 9:22 AM EST) SMOOTH MUSCLE AB POSITIVE AT 1:20 [facility] Comment: Performing Physician, Max Jimenez M.D., [id number] Normal: Negative at 1:20 Blood 01/04/2024 9:22 AM EST 01/04/2024 9:53 AM EST Missy WALLACE LAB BLOOD ORDERABLES Fin al Result Performing Organization Address [facility] Co de Phone Number [address] [address] * Ceruloplasmin (01/04/2024 9:22 AM EST) CERULOPLASMIN 31 20 - 60 mg/dL [facility] Blood 01/04/2024 9:22 AM EST 01/04/2024 9:53 AM EST Missy WALLACE LAB BLOOD ORDERABLES Fin al Result Performing Organization Address [facility] Co de Phone Number [address] [address] * (ABNORMAL) Antinuclear antibody (JERMAIN) (01/04/2024 9:22 AM EST) JERMAIN SCREEN ON HEP 2 Positive(A ) Negative [facility] Comment:An JERMAIN Titer has bee n reflexed. The results will follow. Blood 01/04/2024 9:22 AM EST 01/04/2024 9:53 AM EST Missy WALLACE LAB BLOOD BKR ORDERABLES Final Result [address] [address] * Anti-Mitochondrial Antibody (AMA) (01/04/2024 9:22 AM EST) MITOCHONDRIAL AB NEGATIVE AT 1:20 [facility] Comment: Performing Physician, Max Jimenez M.D., [id number] Normal: Negative at 1:20 Blood 01/04/2024 9:22 AM EST 01/04/2024 9:53 AM EST Missy WALLACE LAB BLOOD ORDERABLES Fin al Result Performing Organization Address [facility] Co de Phone Number [address] [address] * Amylase (01/04/2024 9:22 AM EST) Pathologist [facility] AMYLASE 86 28 - 100 U/L [facility] Blood 01/04/2024 9:22 AM EST 01/04/2024 9:53 AM EST Missy WALLACE LAB BLOOD BKR ORDERABLES Final Result Performing Organization Address [facility] Co de Phone Number [address] [address] * AFP (non-maternal specimens) (01/04/2024 9:22 AM EST) [facility] AFP (NON-MATERNAL) 4.7 <7.9 ng/mL [facility] Comment: Test Methodology Filipe [id number] Patient results determined by assays using different manufacturers or methods may not be comparable. Blood 01/04/2024 9:22 AM EST 01/04/2024 9:53 AM EST Missy WALLACE LAB BLOOD BKR ORDERABLES Final Result Performing Organization Address [facility] Co de Phone Number [address] [address] * Wzkou-0-kwnwhgxdkjf phenotyping (01/04/2024 9:22 AM EST) ALPHA 1 ANTITRYPSIN 173 100 - 190 mg/dL [facility] [address] Comment: (NOTE) ADDITIONAL INFORMATION Method: Nephelometry A1A PHENOTYPE MM bands [facility] [address] Comment: (NOTE) A single M isoform is detected. In the context of a normal xvgrp-9-lhwfchvtxbt concentration, this is consistent with an MM phenotype. ADDITIONAL INFORMATION Method: Isoelectric Focusing, This assay identifies the phenotype of the circulating fuaal-9-zazajckozzl (A1A) protein. If the patient is on replacement therapy or has been recently transfused, the phenotype will detect patient and replacement or transfused plasma A1A protein. This test also cannot detect a null allele which could be responsible for an A1A deficiency. 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 It is not the complete legal health record.[facility]
[2025-10-02 07:38] VITALS: PULSE 72; RESP 18; O2SAT 90
--- NOTE | 2025-10-02 07:44 | PC.NURSE ---
Patient sitting up in bed, given decaf tea, and sandwich and tonio dawna. Patient states he does not want to keep in his O2 due to bloody noses. skin pwd, breathing unlabored, patient agree to put o2 back in after eating. Changed into hospital attire
--- NOTE | 2025-10-02 10:39 | PHA.MEDREC ---
Addendum entered by Kemi Cid [facility] 10/02/25 11:23: REVIEWED BY PHARMACIST Original Note: Pharmacy Consult ? Medication Reconciliation Pharmacy has completed the medication reconciliation. Spoke with pt and he stated with me at first that he is not taking any medications at this time, but then goes to saying he had a blue bag full of medications filled from downstairs, he claims he got upon a discharged with us recently but was not able to provide any name of those medications or what they are used for; Pt most recent dc with new meds from 08/21. I called [facility] to see if they filled and delivered any meds recently and they state they have not filled any meds since 08/20 (pt got discharged with us 08/21 and got Albuterol, Amoxicillin-Clavulanate, Folic Acid, Magnesium Oxide, Naltrexone and Vitamin B1).
--- NOTE | 2025-10-02 11:01 | PC.NURSE ---
Assumed care of patient at this time. Elo at bedside for evaluation
--- NOTE | 2025-10-02 11:25 | ECG_ITS ---
Test Reason : etoh Blood Pressure : */* mmHG Vent. Rate : 70 BPM Atrial Rate : 70 BPM P-R Int : 146 ms QRS Dur : 86 ms QT Int : 434 ms P-R-T Axes : 58 19 28 degrees QTcB Int : 468 ms Normal sinus rhythm Normal ECG When compared with ECG of 13-Sep-2025 20:52, No significant change was found Referred By: Brooke Oro Electronically Signed By: EDITA HALE
--- NOTE | 2025-10-02 11:51 | P.CNPS_ITS ---
History of Present Illness Date of Service: 10/02/2025 Chief Complaint: Lower Back Pain ETOH Reason for Consult: capacity Requesting physician: Alley Del Rosario Discussed with referring provider: Yes Sources of Information: patient interviewed, chart reviewed and crisis/core team assessment reviewed HPI Narrative: Mr. Delgado is a 55 year-old male with hx of alcohol use disorder who self presented twice on 10/01 this time reporting my balls itch. He is well known to [facility] ED and has had a total of 63 ED visits and admission this year alone. He has been coming every day at least twice intoxicated in the past 4 days. He is currently unhoused. He does not follow up with outpatient providers. He has declined recommended treatments in the past including having oxygen as he needs ongoing oxygen. He has had two capacity assessments one back in 10/2024 and 08/2025 both times patient has been found to have capacity in that he has been able to show understanding of medical conditions, recommended treatment and able to verbalize an options. Pt seen in the ED. He is alert, able to tell that he is at [facility], in [place], knows the month and year. He does not remember how he got here not why he is here in the hospital. When asked about his understanding of his medical decisions, he tells this show card writer he does not know. He states that he has been told something with oxygen but not sure what his medical conditions are. He denies SI/HI. He expresses concern in terms of drinking and falling asleep and dying frozen as someone he knew. He reports he knows he will always use alcohol and that may not stop until he dies. Past Psychiatric History: -hx of 3 prior detox admissions for alcohol use per chart -h/o 2 section-35 mandated residential tx at [facility] for ETOH use d/o -does not have outpatient psychiatric providers -remote h/o suicide attempt via overdosing on pills and slicing his wrist. He denies receiving any medical care after these attempts. -Denies h/o inpatient psychiatric admissions Medical Evaluation Reviewed: Yes [facility] Medical History Hemorrhoids, internal, with bleeding Rectal bleeding Pancytopenia Alcohol withdrawal Alcohol use disorder, severe, dependence Pancytopenia Cirrhosis Hypomagnesemia Aspiration pneumonia Alcohol use disorder CHF (congestive heart failure) Alcohol abuse Acute hypoxemic respiratory failure Anemia Pneumonia Alcohol withdrawal syndrome Alcohol abuse Thrombocytopenia Esophageal varices Acute on chronic anemia Alcoholic liver disease Thrombocytopenia Malnutrition CHF (congestive heart failure) Anemia Thrombocytopenia Acute on chronic anemia CHF (congestive heart failure) Anemia Alcohol abuse Surgical History No history of previous surgery Family History: denies Social History: homeless, single, no kids. unemployed. Trauma History: loss of mom, sister Diagnostics Vital Signs (24Hr): Vital Signs - 24 hr 10/01/25 17:20 10/01/25 19:27 10/01/25 20:05 Temperature 98.1 F 97.5 F Pulse Rate 83 67 Respiratory Rate 16 16 77 H Blood Pressure 109/55 L 102/54 L 91/51 L Pulse Oximetry 93 92 Oxygen Delivery Method Nasal Cannula Nasal Cannula Oxygen Flow Rate 2 10/02/25 01:50 10/02/25 07:38 Temperature 98.0 F Pulse Rate 75 72 Respiratory Rate 20 18 Blood Pressure 99/50 L Pulse Oximetry 92 90 L Oxygen Delivery Method Nasal Cannula Nasal Cannula Oxygen Flow Rate 2 2 BMI result Body Mass Index 23.4 Labs 10/02/25 12:20 10/02/25 12:20 Mental Status Exam Mental Status Exam Narrative: alert, thin, malnourished. No VH/AH. No agitation or retardation noted. Orientation to place, month, and year is intact but not to situation. No s/s of psychosis or delusions. TP: linear TC: worried about dying in the cold. Medications Medications Current Medications Pharmacy Consult (Consult Rx Etoh Phenob Im/Po) 1 each MISCELLANE ONCE PRN; Protocol PRN Reason: Consult order Thiamine HCl (Thiamine Hcl 100 Mg Tablet) 100 mg PO DAILY JOSE MANUEL Allergies Allergies Allergy/AdvReac Type Severity Reaction Status Date / Time No Known Allergies (No Known Allergy Verified 10/01/25 17:27 Allergies*) Assessment & Plan Assessment & Plan (1) Encounter for assessment of healthcare decision-making capacity: Status: Acute Code(s): Z02.79 - Encounter for issue of other medical certificate (2) Alcohol use disorder: Status: Acute Code(s): F10.90 - Alcohol use, unspecified, uncomplicated Plan Mr. Delgado is a 55 year-old male with hx of alcohol use disorder, CHF, cirrhosis, who self presented reporting balls where itching. BAL at the time was 400. He is known to [facility] through about 63 ED visits and admission this past year along. Decrease of alcohol use disorder has affected his ability to care for himself in terms of following up with medical care, and secure housing. He has had two capacity assessments one back in 10/2024 and recent one back 08/2025 and both times have been found to have capacity. It does seemed that at the time he was able to show much more understanding of medical conditions and some degree of appreciation of risks versus benefits of accepting and rejecting treatment. He is not able to show such capacity today. He is unable to provide any information about his medical hx and treatment recommendation including use of oxygen in the community. He knows where he is, month and year but not oriented to situation. However, in the past when he has been deemed as having capacity, his preference has been to decline most interventions. The concern at this point is that if his cognition has worsened and he is not able to utilize the skills that have kept him alive while he has been on the streets such as knowing where to sleep on the streets so he does not freezes to , likelihood of imminent harm is high. He does tell this show card writer he worries about using alcohol and falling asleep and not realizing where he is. He has been consistent that he does not want treatment for alcohol use disorder in residential treatment facility when he has been deemed as having capacity. 1. Today, pt is not able to show any understanding of medical conditions, nor show any signs of appreciation of risks, versus benefits nor much ability to reason. He currently does NOT have capacity. However, keep in mind that it is substituted judgment and invocation of HCP is with intent to honor pt's wishes when pt was deemed as having capacity. It is clear that patient does not wish to . But has in the past declined further medical interventions. Total time managing care of this patient today ____ minutes.
[2025-10-02] MEDS: PHENobarbitaL sodium 130 MG/ML IM ONCE 200 MG IM (12:12)
[2025-10-02 12:15] VITALS: BP 107/50; PULSE 68; RESP 16; TEMP 36.7; O2SAT 95
--- NOTE | 2025-10-02 12:19 | PC.NURSE ---
Pt awake and alert, resting in bed at this time. 1st dose of Phenobarb protocol administered. NC in place. Video monitoring initiated as patient has hx as flight risk.
[2025-10-02 12:27] LABS: Imm Gran Abs Auto 0.01 X10*3/uL (0.00-0.03); Imm Gran Pct Auto 0.4 % (0.0-0.4); Lymphocytes Absolute Auto 0.7 X10*3/uL (1.2-4.9); MANUAL DIFF FLAG SCAN; NRBC Abs Auto 0.000 X10*3/uL (0.0-0.012); NRBC Pct Auto 0.0 /100WBC (0.0-0.2); SCAN SMEAR FLAG 1
[2025-10-02 12:29] LABS: Hematocrit 31.5 % (42.0-52.0); Hemoglobin 10.2 g/dl (14.0-18.0); Mean Corpuscular HGB Conc 32.4 g/dl (31.0-36.0); Mean Corpuscular Hemoglobin 29.7 pg (27.0-33.0); Mean Corpuscular Volume 91.6 fL (80.0-98.0); Red Blood Count 3.44 X10*6/uL (4.60-5.80); White Blood Count 2.7 X10*3/uL (4.8-10.8)
[2025-10-02 12:30] LABS: PLT ABN DIST 1
[2025-10-02 12:44] LABS: Alanine Aminotransferase 7 U/L (0-40); Albumin Level 3.3 g/dL (3.5-5.0); Alkaline Phosphatase 104 U/L (39-117); Anion Gap 11 (12-20); Aspartate Amino Transferase 31 U/L (5-37); Blood Urea Nitrogen 13 mg/dL (9-16); Calcium 8.8 mg/dL (8.4-10.2); Carbon Dioxide 21 mmol/L (22-29); Chloride 112 mmol/L (96-108); Creatinine Clr Calc Pharmacy 74.7; Estimated Glomerular Filt Rate > 60; Potassium 3.9 mmol/L (3.3-5.1); Sodium 140 mmol/L (135-145); Total Protein 7.0 g/dL (6.5-8.0)
[2025-10-02 12:57] LABS: Platelet Count 49 X10*3/uL (160-400)
--- NOTE | 2025-10-02 13:33 | MHC.CM.ED ---
Addendum entered by Mimi Holden 10/02/25 13:46: Guillermo's cell phone number is [phone]. His work number is [phone]. Original Note: Received case management consult from Brooke WALLACE. Patient is well known to the ER staff and Case management due to frequent ER visits. Patient has a long standing history of ETOH abuse and being homeless. Patient d/c'd from [facility] on 09/17 to [facility]. Patient was at [facility] from 09/17-09/26. Patient left AMA from [facility]. Patient has been to the ER multiple times since then. Psych consult for capacity ordered. Per [employer] communications project manager, patient does not have the capacity to make his own decisions. Patient's HCP has his brother, Guillermo, listed as his agent. Spoke with Guillermo via telephone at [phone]. Guillermo agrees that patient does not have the capacity to make his own decisions. Guillermo is willing to act as patient's HCP. Guillermo is aware that [place] [facility] at a SNF will be pursued. Guillermo also aware that placement could be in the [place] Area. Guillermo verbalizes understanding and agreeable to any placement that can be found. Referral will be broadcasted at this time. Mojgan Moore CM director aware. Continue to monitor for d/c needs.
[2025-10-02 14:31] VITALS: BP 94/50; PULSE 77; RESP 16; TEMP 36.8; O2SAT 90
[2025-10-02] MEDS: PHENobarbitaL sodium 130 MG/ML VIAL IM Q3Hx2 150 MG IM ×2 (15:33→18:31)
[2025-10-02 18:33] VITALS: BP 92/51; PULSE 70; RESP 16; TEMP 36.6; O2SAT 94
--- NOTE | 2025-10-02 18:35 | PC.NURSE ---
Pt sleeping upon this RN entering room. BP slightly lower than baseline. Denies any symptoms. Pt sitting up to eat dinner at this time
[2025-10-02 20:12] VITALS: BP 96/47; PULSE 75; RESP 18; TEMP 36.8; O2SAT 94
--- NOTE | 2025-10-03 01:02 | PC.NURSE ---
pt resting, no sign of distress at this time.
--- NOTE | 2025-10-03 01:28 | PC.NURSE ---
pt assisted to the bathroom.
[2025-10-03 01:36] VITALS: BP 100/48; PULSE 66; RESP 14; TEMP 36.8; O2SAT 94
--- NOTE | 2025-10-03 04:28 | PC.NURSE ---
pt sleeping at this time, no sign of distress
[2025-10-03 06:21] VITALS: BP 95/52; PULSE 63; RESP 16; TEMP 36.8; O2SAT 92
[2025-10-03 06:47] LABS: MANUAL DIFF FLAG NO
[2025-10-03 07:09] LABS: Hematocrit 33.9 % (42.0-52.0); Hemoglobin 10.7 g/dl (14.0-18.0); Imm Gran Abs Auto 0.01 X10*3/uL (0.00-0.03); Imm Gran Pct Auto 0.4 % (0.0-0.4); Lymphocytes Absolute Auto 0.7 X10*3/uL (1.2-4.9); Mean Corpuscular HGB Conc 31.6 g/dl (31.0-36.0); Mean Corpuscular Hemoglobin 29.3 pg (27.0-33.0); Mean Corpuscular Volume 92.9 fL (80.0-98.0); NRBC Abs Auto 0.000 X10*3/uL (0.0-0.012); NRBC Pct Auto 0.0 /100WBC (0.0-0.2); Red Blood Count 3.65 X10*6/uL (4.60-5.80); White Blood Count 2.8 X10*3/uL (4.8-10.8)
[2025-10-03 07:12] LABS: Platelet Count 48 X10*3/uL (160-400)
[2025-10-03 07:59] VITALS: BP 100/50; PULSE 72; RESP 18; TEMP 36.6; O2SAT 97
[2025-10-03 08:14] LABS: Procalcitonin 0.09 ng/mL
--- NOTE | 2025-10-03 11:06 | MHC.EDTECH ---
Patients belongings locked in the [facility] Shelf [address] due to being an elopement risk.
[2025-10-03 11:35] VITALS: BP 104/52; PULSE 72; RESP 18; TEMP 36.8; O2SAT 90
--- NOTE | 2025-10-03 11:46 | PC.NURSE ---
Received pt from Main ED, pt ambulated off stretcher to bed w/ steady gait and stand-by assist. Pt denies any c/o's. Vital signs obtained by tech and documented. Pt awaiting dispo
--- NOTE | 2025-10-03 11:55 | MHC.CM.ED ---
Patient transferred to ER overflow. No bed offers within 25 miles. Referral broadcasted within 50 miles. Continue to monitor for d/c needs.
--- NOTE | 2025-10-03 12:04 | MHC.EDTECH ---
BROTHER JACQUI [facility] RE[facility], [address], [place], [address],
[2025-10-03 20:10] VITALS: BP 94/53; PULSE 88; RESP 20; TEMP 36.9; O2SAT 91
--- NOTE | 2025-10-03 23:00 | PC.NURSE ---
assumed care @ 2300 - received patient in stable condition. sleeping at this time
--- NOTE | 2025-10-04 00:29 | PC.NURSE ---
pt pulled out his IV at this time. was cleaned up and replaced in other arm for his iv atb he is receiving
--- NOTE | 2025-10-04 03:23 | PC.NURSE ---
pt sleeping. no distress at this time.
[2025-10-04 06:00] VITALS: BP 88/47; PULSE 74; RESP 20; TEMP 36.7; O2SAT 92
--- NOTE | 2025-10-04 06:06 | PC.NURSE ---
notified MD in ER about low blood pressure this am
--- NOTE | 2025-10-04 08:41 | PC.NURSE ---
assumed care of pt at 0700. report received from Maddy SANCHEZ pt resting comfortably in bed, respirations even and unlabored. wearing 3L O2 via NC. camera in room, pt ate breakfast tray. call harris within reach.
[2025-10-04 09:49] VITALS: BP 104/56; PULSE 81; RESP 16; TEMP 37.2; O2SAT 92
--- NOTE | 2025-10-04 10:21 | PC.NURSE ---
waiting for pharmacy to bring azithromycin po
--- NOTE | 2025-10-04 11:15 | PC.NURSE ---
Assumed care of patient at this time. Pt resting in bed, watching TV. Mely toney provided per request. No distress noted
--- NOTE | 2025-10-04 12:45 | MHC.CM.ED ---
Review of referrals: most facilities are not able to offer a bed d/t availability issues or concerns w/pt's SNF d/c plan. [facility] [place] inquired on CIWA monitoring which is consistently documented as zero. Will await responses. Pts HCP has been invoked at this time secondary to psych eval. His HCP/brother would like to pursue LTC placement. ED CM to follow.
[2025-10-04 14:00] VITALS: BP 102/52; PULSE 84; RESP 16; TEMP 37.3; O2SAT 92
[2025-10-04 20:28] VITALS: BP 99/57; PULSE 88; RESP 18; TEMP 37; O2SAT 92
--- NOTE | 2025-10-05 01:07 | PC.NURSE ---
0100 Pt woke to urinate, using urinal at bedside. Voiding clear yellow urine 500mL without difficulties. Pt reports he is sleeping well tonight, additional blanket offered and accepted. Camera and bed alarm on , bed low position. Assessment and CIWA as documented in EMAR.
[2025-10-05 05:45] VITALS: BP 93/47; PULSE 74; RESP 14; TEMP 36.8; O2SAT 90
[2025-10-05 07:34] VITALS: BP 99/54; PULSE 73; RESP 16; TEMP 37.1; O2SAT 92
--- NOTE | 2025-10-05 08:48 | PC.NURSE ---
assumed care of pt at 0645. pt alert and oriented but not to situation. pt unable to recall why he's here. pt reoriented/agreeable w/ plan of care. vss and up to date aside from being slightly soft BP. pt remains on 3L via NC. pt ate 100% of breakfast. pt medicated per provider order. swallows pills whole w/ water w/o difficulty. pt offers no complaints at this time. CIWA documented in worklist - no s/sx of withdrawal. pt otherwise continues to pend further arrangements in regards to LTC. pt otherwise offers no complaints/denies pain. remains on 3L via NC w/o difficulty. no apparent respiratory distress. no sob/wob noted. respirations even/unlabored. plan of care ongoing. call harris placed within reach.
--- NOTE | 2025-10-05 10:26 | PC.NURSE ---
pt provided w/ personal hygiene products. self ambulated to the restroom/took a shower w/o difficulty. bed change completed. pt provided w/ fresh clothing. pt now back in bed/resting in no apparent distress. watching tv. pt remains on 3L via NC - no sob/wob noted. VMT remains in place. plan of care ongoing. call harris placed within reach.
[2025-10-05 14:00] VITALS: BP 91/56; PULSE 80; RESP 16; TEMP 37.3; O2SAT 91
--- NOTE | 2025-10-05 14:22 | PC.NURSE ---
pt's BP remains soft at this time - provider notified/aware. no new interventions at this time as patient remains asymptomatic. pt otherwise remains on 3L via NC - no sob/wob noted. respirations remain even/unlabored. pt provided w/ snacks per pt request. plan of care ongoing. call harris placed within reach.
[2025-10-05 19:42] VITALS: BP 94/50; PULSE 87; RESP 18; TEMP 36.7; O2SAT 88
--- NOTE | 2025-10-05 21:47 | PC.NURSE ---
pt provided crackers and tonio dawna per request.
[2025-10-06 06:35] VITALS: BP 96/55; PULSE 73; RESP 14; TEMP 37; O2SAT 91
[2025-10-06 08:41] VITALS: BP 115/56; PULSE 76; RESP 16; O2SAT 93
[2025-10-06 13:39] VITALS: BP 102/53; PULSE 77; RESP 18; TEMP 36
--- NOTE | 2025-10-06 14:13 | MHC.CM.ED ---
Patient remains in ER overflow. Waiting to hear from [facility], [facility] and [facility] about bed offers. Continue to monitor for d/c needs.
--- NOTE | 2025-10-06 15:18 | PC.NURSE ---
assumed care of patient at 0700. pt remains on 3L NC denying any SOB or [place]. pt is alert and oriented and denies any pain at this time. awaiting placement for discharge
--- NOTE | 2025-10-06 17:47 | PC.NURSE ---
patient increased from 3L to 4L NC r/t o2 sat of 87%. pt now satting 90%. denies any difficulty breathing. crackles noted to bases bilaterally.provider notified.
[2025-10-06 21:14] VITALS: BP 97/48; PULSE 78; RESP 20; TEMP 37; O2SAT 97
[2025-10-07 08:29] VITALS: BP 91/51; PULSE 70; RESP 14; TEMP 36.9; O2SAT 94
[2025-10-07 08:49] LABS: MANUAL DIFF FLAG NO
[2025-10-07 08:50] LABS: Hematocrit 31.7 % (42.0-52.0); Hemoglobin 10.3 g/dl (14.0-18.0); Imm Gran Abs Auto 0.02 X10*3/uL (0.00-0.03); Imm Gran Pct Auto 0.6 % (0.0-0.4); Lymphocytes Absolute Auto 0.8 X10*3/uL (1.2-4.9); Mean Corpuscular HGB Conc 32.5 g/dl (31.0-36.0); Mean Corpuscular Hemoglobin 30.2 pg (27.0-33.0); Mean Corpuscular Volume 93.0 fL (80.0-98.0); NRBC Abs Auto 0.000 X10*3/uL (0.0-0.012); NRBC Pct Auto 0.0 /100WBC (0.0-0.2); Platelet Count 60 X10*3/uL (160-400); Red Blood Count 3.41 X10*6/uL (4.60-5.80); White Blood Count 3.3 X10*3/uL (4.8-10.8)
[2025-10-07 09:15] LABS: Alanine Aminotransferase 9 U/L (0-40); Albumin Level 3.3 g/dL (3.5-5.0); Alkaline Phosphatase 114 U/L (39-117); Anion Gap 11 (12-20); Aspartate Amino Transferase 30 U/L (5-37); Blood Urea Nitrogen 20 mg/dL (9-16); Calcium 9.3 mg/dL (8.4-10.2); Carbon Dioxide 20 mmol/L (22-29); Chloride 112 mmol/L (96-108); Creatinine Clr Calc Pharmacy 76.7; Estimated Glomerular Filt Rate > 60; Potassium 4.1 mmol/L (3.3-5.1); Sodium 139 mmol/L (135-145); Total Protein 7.0 g/dL (6.5-8.0)
[2025-10-07 14:00] VITALS: BP 98/57; PULSE 76; RESP 12; TEMP 37.6; O2SAT 92
[2025-10-07 19:35] VITALS: BP 107/59; PULSE 76; RESP 20; TEMP 37.2; O2SAT 95
--- NOTE | 2025-10-07 21:05 | MHC.CM.ED ---
Pt offering no complaints. Cooperative. Eating well. Continues with oxygen. 4 facilities reviewing. Clinical updates sent to facilities via [facility]. No signs withdrawal
--- NOTE | 2025-10-08 11:00 | HO.WOUND ---
Over Flow Rounding completed 55yr old male present in [facility] ED / OverFlow area - See ED notes for detailed history.? Inpatient Skin Integrity Maintenance Rounding. Patient agreeable to assessment and skin assessment. Brief chart review completed.? Patient reports he is independent in his ambulation during buttock and sacral assessment he was noted to be moving well and independently with in the bed. Denies tenderness or soreness to his body including heels and coccyx area. Bilateral Heels assessed for blanchable redness, remain intact and floated off of bed surface with pillows. Of note the right lateral maleolous area is noted for a well defined light purple hyperpigmented area - not consistent with pressure and not open. Buttock, Sacrum and Coccyx assessed - noted to be intact, light pink however remains blanchable. May use preventative foam dressing application to protect from friction and injury development.? Patient on Hospital bed at this time recommend applying low air loss pump to mattress if available.?
[2025-10-08 14:00] VITALS: BP 94/50; PULSE 78; RESP 18; TEMP 37; O2SAT 94
--- NOTE | 2025-10-08 16:15 | MHC.EDTECH ---
took care for patient @1600, bed alarm on for fall risk precautions, camera is on, no needs stated at this time
--- NOTE | 2025-10-08 17:16 | MHC.EDTECH ---
pt ate 100% of dinner natacha, LAURA aware
[2025-10-08 23:37] VITALS: BP 102/50; PULSE 81; RESP 16; TEMP 37.2; O2SAT 93
[2025-10-09 05:57] VITALS: BP 86/50; PULSE 69; RESP 16; TEMP 36.9; O2SAT 96
[2025-10-09 08:07] VITALS: BP 107/59; PULSE 73; RESP 18; TEMP 36.9; O2SAT 92
--- NOTE | 2025-10-09 09:43 | PC.NURSE ---
patient a&ox2, vss, rr equal/non labored, ambulated to sink with stby assist, urinal at bedside, denies pain/discomfort, medicated per order, fall precautions intact- video monitoring intact, call harris within reach, plan of care ongoing
[2025-10-09 14:33] VITALS: BP 107/55; PULSE 78; RESP 18; TEMP 36.7; O2SAT 91
--- NOTE | 2025-10-09 14:51 | PC.NURSE ---
patient resting comfortably in bed, no complaints at this time. calm and cooperative. Patient remains on safety risk and continue observation monitoring by camera.
--- NOTE | 2025-10-09 17:29 | PC.NURSE ---
patient sitting comfortably at end of bed drinking orange juice. Patient calm cooperative and awaiting his dinner. complaints only of tender sore left upper arm from IM injections. Sites wnl no redness swelling drainage or erythema.
--- NOTE | 2025-10-09 18:00 | PC.NURSE ---
patient sitting up in bed eating dinner independently while watching TV. Patient denies any complaints at this time. Video monitoring still working and in place in room
[2025-10-09 19:22] VITALS: BP 113/55; PULSE 74; RESP 16; TEMP 36.8; O2SAT 92
[2025-10-10 06:00] VITALS: BP 103/58; PULSE 76; RESP 20; TEMP 36.7; O2SAT 92
--- NOTE | 2025-10-10 10:22 | MHC.CM.ED ---
Review of referrals - no acceptance: updates w/CIWA information remitted to the few facilities that are still following. Met w/pt to review d/c plan. Pt agreeable and in no distress waiting for placement. ED CM to follow.
[2025-10-10 15:13] VITALS: BP 108/56; PULSE 74; RESP 20; TEMP 36.6; O2SAT 95
--- NOTE | 2025-10-10 18:39 | PC.NURSE ---
pt aler,t oriented to place and situation. ate breakfast, lunch and dinner well. vitals WNL. sometimes does not wear O2 and is encouraged and education on importance of o2.
[2025-10-10 22:30] VITALS: BP 100/53; PULSE 76; TEMP 36.6; O2SAT 94
[2025-10-11 06:16] VITALS: BP 101/48; PULSE 73; TEMP 37.1; O2SAT 94
[2025-10-11 09:39] VITALS: BP 105/55; PULSE 76; RESP 16; TEMP 36.1; O2SAT 93
[2025-10-11 14:00] VITALS: BP 103/53; PULSE 80; RESP 18; TEMP 37.1; O2SAT 91
--- NOTE | 2025-10-11 15:45 | MHC.CM.PN ---
NO BED OFFERS OF YET, LIANA OFFERS NO C/O WHILE AWAITING PLACEMENT.
[2025-10-11 20:53] VITALS: BP 104/58; PULSE 81; RESP 18; TEMP 37.2; O2SAT 92
[2025-10-11 22:00] VITALS: BP 107/54; PULSE 76; RESP 18; TEMP 36.6; O2SAT 92
[2025-10-12 05:50] VITALS: BP 96/50; PULSE 82; RESP 18; TEMP 37.1; O2SAT 96
[2025-10-12 14:00] VITALS: BP 103/54; PULSE 72; RESP 18; TEMP 36.9; O2SAT 95
[2025-10-12 21:39] VITALS: BP 99/59; PULSE 93; RESP 18; TEMP 37.2; O2SAT 91
[2025-10-13 05:41] VITALS: BP 91/46; PULSE 69; RESP 16; TEMP 37.1; O2SAT 99
--- NOTE | 2025-10-13 12:08 | HO.WOUND ---
Over Flow Rounding completed 55yr old male present in [facility] ED / OverFlow area - See ED notes for detailed history.? Inpatient Skin Integrity Maintenance Rounding. Patient agreeable to assessment and skin assessment. Brief chart review completed.? Patient reports he is independent in his ambulation during buttock and sacral assessment he was noted to be moving well and independently with in the bed. Denies tenderness or soreness to his body including heels and coccyx area. Bilateral Heels assessed for blanchable redness, remain intact and floated off of bed surface with pillows. Of note the right lateral maleolous area is noted for a well defined light purple hyperpigmented area - not consistent with pressure and not open. Buttock, Sacrum and Coccyx assessed - noted to be intact, light pink however remains blanchable. May use preventative foam dressing application to protect from friction and injury development.? Recommend waffle cushion if up to recliner chair for protection and prevention. Patient on Hospital bed at this time recommend applying low air loss pump to mattress if available.?
[2025-10-13 14:00] VITALS: BP 99/56; PULSE 81; RESP 14; TEMP 37.2; O2SAT 94
--- NOTE | 2025-10-13 18:13 | PC.NURSE ---
Patient has been calm/cooperative throughout the shift. Has ambulated with assistance (1 assist & walker) to bathroom and back without issue. Camera & bed alarm for safety & elopement risk. 4L oxygen via nasal cannula. Ate ~75% of dinner tray. Watching TV at this time. Continue to await placement, bedsearch ongoing. Care ongoing by this RN.
--- NOTE | 2025-10-13 22:09 | PC.NURSE ---
pt resting in bed.
--- NOTE | 2025-10-13 22:18 | P.HPHOSP_ITS ---
History of Present Illness Date of Service: 10/13/25 Attending physician on admission: Ambrose Ferguson Chief Complaint: cough Patient is a 55-year-old male with a past medical history significant for severe alcohol use disorder, liver cirrhosis, HFpEF and chronic hypoxia, who presented to the ED on 10/01/2025 for cough x1 day and low back pain x1 week. The patient then denied this when evaluated in the ED and reported that he was there due to itchy testicles. No testicular pain or swelling. Testicular workup was normal, possible Nimo, patient had a trial of nystatin with improvement. Patient was placed on physician observation for case management needs and started on phenobarb protocol to prevent alcohol withdrawal as well as thiamine. He was seen by the psych team and deemed that he does not have capacity to make his own medical decisions. This patient has been followed by case management and the patient's healthcare proxy his brother, Guillermo, agreed that the patient does not have capacity and would like him placed at a long-term care facility. The patient was evaluated by psych and started on trazodone as needed for insomnia. He was treated for community-acquired pneumonia with ceftriaxone and azithromycin and completed treatment. His blood pressure is chronically low and he has had transient episodes of hypotension but has maintained appropriate MAP. Currently, his only complaint is muscle soreness. Plan for patient to be admitted to the hospitalist service for ongoing search for long-term care facility bed placement. Review of Systems 2 Constitutional: Constitutional: Denies body ache(s), Denies chills, Denies fatigue, Denies fever(s) and Denies headache(s) Eyes: Eyes: Denies change in vision ENT: Denies headache(s), Denies nasal congestion and Denies sore throat Cardiovascular: Cardiovascular: Denies chest pain, Denies rapid heart rate, Denies leg edema, Denies lightheadedness and Denies dyspnea Respiratory: Respiratory: Denies chest congestion, Denies cough, Denies dyspnea and Denies wheezing Gastrointestinal: Gastrointestinal: Denies abdominal pain, Denies diarrhea, Denies nausea and Denies vomiting Genitourinary: Genitourinary: Denies dysuria and Denies urinary urgency Musculoskeletal: Musculoskeletal: Reports myalgias Integumentary/Breasts: Skin/Breast: Denies rash Neurologic: Denies confusion and Denies headache(s) Psychiatric: Psychiatric: Denies confusion Endocrine: Endocrine: Denies fatigue Hematologic/Lymphatic: Hematologic/Lymphatic: Denies easy bleeding Allergic/Immunologic: Allergic/Immunologic: Denies wheezing PMFSH Medical History Hemorrhoids, internal, with bleeding Rectal bleeding Pancytopenia Alcohol withdrawal Alcohol use disorder, severe, dependence Pancytopenia Cirrhosis Hypomagnesemia Aspiration pneumonia Alcohol use disorder CHF (congestive heart failure) Alcohol abuse Acute hypoxemic respiratory failure Anemia Pneumonia Alcohol withdrawal syndrome Alcohol abuse Thrombocytopenia Esophageal varices Acute on chronic anemia Alcoholic liver disease Thrombocytopenia Malnutrition CHF (congestive heart failure) Anemia Thrombocytopenia Acute on chronic anemia CHF (congestive heart failure) Anemia Alcohol abuse Surgical History No history of previous surgery Social History Household Members: None Household Members Other:: homeless Housing: Homeless Housing Other:: homeless Do you presently have visiting nurse or other home services: No Alcohol intake: current Alcohol intake frequency: 3 or more drinks per day Alcohol type: beer and hard liquor Comment: pt refuse to have staff remain in BR Patient Tobacco Use Status: Former Tobacco user Tobacco use type: Cigarette Second Hand Smoke Exposure: No Advance Directives: Yes Advance Directives on File: Yes Advance Directives Date on File: 07/13/23 Do you have a plan to hurt others: No Plan service: No Meds Allergies Allergy/AdvReac Type Severity Reaction Status Date / Time No Known Allergies (No Known Allergy Verified 10/01/25 17:27 Allergies*) Active Medications: Current Medications Albuterol Sulfate (Albuterol Sulfate 90 Mcg 8 Gm Inhaler) 2 puff INHALE Q4H PRN PRN Reason: Respiratory Distress Calcium Carbonate (Calcium Carbonate 750 Mg Tab.Chew) 750 mg PO Q4H PRN PRN Reason: Heartburn Folic Acid (Folic Acid 1 Mg Tablet) 1 mg PO DAILY [facility] Last Admin: 10/13/25 09:07 Dose: 1 mg Magnesium Hydroxide (Milk Of Magnesia 30 Ml Oral.Susp) 30 ml PO DAILY PRN PRN Reason: Constipation Magnesium Oxide (Magnesium Oxide 400 Mg Tablet) 400 mg PO DAILY [facility] Last Admin: 10/13/25 09:08 Dose: 400 mg Melatonin (Melatonin 3 Mg Tablet) 6 mg PO BEDTIME PRN PRN Reason: Insomnia Multivitamins/Vitamin C (Multivitamin Tablet) 1 tab PO DAILY [facility] Last Admin: 10/13/25 09:07 Dose: 1 tab Naltrexone HCl (Naltrexone Hcl 50 Mg Tablet) 50 mg PO DAILY [facility] Last Admin: 10/13/25 09:08 Dose: 50 mg Pharmacy Consult (Consult Rx Etoh Phenob Im/Po) 1 each MISCELLANE ONCE PRN; Protocol PRN Reason: Consult order Sodium Chloride (0.9 % Sodium Chloride Flush 3 Ml Syringe) 3 ml IVFLUSH QSHIFT [facility] Thiamine HCl (Thiamine Hcl 100 Mg Tablet) 100 mg PO DAILY [facility] Last Admin: 10/13/25 09:08 Dose: 100 mg Trazodone HCl (Trazodone Hcl 25 Mg Halftab) 25 mg PO BEDTIME PRN PRN Reason: Insomnia Home Medications ?Medication ?Instructions ?Recorded ?Confirmed ?Last Taken ?Type albuterol sulfate 90 mcg/actuation 2 puff inhalation Q 4-6H PRN 10/02/25 10/02/25 Unknown History aerosol inhaler Respiratory Distress folic acid 1 mg tablet 1 mg PO DAILY 10/02/2510/02 Unknown History magnesium oxide 400 mg PO DAILY 10/02/25 Unknown History naltrexone 50 mg tablet 50 mg PO DAILY 10/02/2509/14 Unknown History thiamine HCl (vitamin B1) 100 mg 100 mg PO DAILY 10/0210/02/25 Unknown History tablet Physical Exam 2 Vital Signs and Narrative: Vital Signs: Last Vital Signs Temp 99.0 F 10/13/25 14:00 Pulse 81 10/13/25 14:00 Resp 14 10/13/25 14:00 BP 99/56 L 10/13/25 14:00 Pulse Ox 94 10/13/25 14:00 O2 Del Method Nasal Cannula 10/13/25 14:00 O2 Flow Rate 4 10/13/25 14:00 Oxygen Flow Rate 2 10/01/25 17:20 BMI result Body Mass Index 23.4 General: AOx3, no acute distress Resp: CTA bilaterally CVS: S1, S2, RRR GI: +BS, NT, no distention Skin: Warm, dry Neuro: Cranial nerves II-XII grossly intact bilaterally. Motor grossly intact bilaterally Extremities: No pitting edema Psych: Appropriate affect Const: General: No confusion Orientation/consciousness: No confusion Neuro: General: No confusion Results Labs 10/07/25 08:43 10/07/25 08:43 Assessment and Plan (1) Alcoholism: Status: Acute (2) Pancytopenia: Status: Acute (3) Homelessness: Status: Acute (4) Cirrhosis: Qualifiers: Ascites presence: without ascites Hepatic cirrhosis type: alcoholic cirrhosis Qualified Code(s): K70.30 - Alcoholic cirrhosis of liver without ascites Status: Acute Plan Patient is a 55-year-old male with a past medical history significant for severe alcohol use disorder, liver cirrhosis, HFpEF and chronic hypoxia, who presented to the ED on 10/01/2025 for cough x1 day and low back pain x1 week. Plan for patient to be admitted to the hospitalist service for ongoing search for long- term care facility bed placement. Alcohol use disorder - thiamine, folic acid, multivitamin, naltrexone, magnesium - completed phenobarb - evaluated by addiction Medicine Liver cirrhosis - LFTs normal - avoid hepatotoxins HFpEF, no acute exacerbation Chronic hypoxia - albuterol p.r.n. - oxygen supplementation as needed Insomnia - trazodone Homelessness, lacks capacity and knowledge of medical issues - imminent concern for pt safety with etoh use and lack of capacity - awaiting LTC bed Full code Healthcare proxy invoked, brother- Guillermo VTE prophylaxis: pneumoboots Patient has severe alcohol use disorder, liver cirrhosis, deemed to not have capacity, concern for imminent harm to self and does not have secure housing, awaiting bed placement at long-term care facility. Quality Stroke Does the patient have a stroke diagnosis?: No VTE Prior VTE?: No VTE Risk Level:: Medical - moderate - high VTE Device Contraindication: N/A - Device Ordered VTE Drug Contraindication: Treatment Not Indicated
[2025-10-14] VITALS (7 sets, daily range): BP systolic 107–130; BP diastolic 50–60; PULSE 68–100; RESP 16–19; TEMP 36.2–36.8; O2SAT 76–92; BMI 24.5
[2025-10-14 04:24] LABS: Anion Gap 12 (12-20); Blood Urea Nitrogen 26 mg/dL (9-16); Calcium 9.6 mg/dL (8.4-10.2); Carbon Dioxide 20 mmol/L (22-29); Chloride 113 mmol/L (96-108); Creatinine Clr Calc Pharmacy 70.2; Estimated Glomerular Filt Rate > 60; Magnesium 1.6 mg/dL (1.6-2.6); Potassium 4.1 mmol/L (3.3-5.1); Sodium 141 mmol/L (135-145)
[2025-10-14 04:35] LABS: Hematocrit 32.9 % (42.0-52.0); Hemoglobin 10.8 g/dl (14.0-18.0); Mean Corpuscular HGB Conc 32.8 g/dl (31.0-36.0); Mean Corpuscular Hemoglobin 29.8 pg (27.0-33.0); Mean Corpuscular Volume 90.6 fL (80.0-98.0); NRBC Abs Auto 0.000 X10*3/uL (0.0-0.012); NRBC Pct Auto 0.0 /100WBC (0.0-0.2); PLT CLUMP 1; Red Blood Count 3.63 X10*6/uL (4.60-5.80)
[2025-10-14 05:04] LABS: Platelet Count 71 X10*3/uL (160-400); White Blood Count 3.8 X10*3/uL (4.8-10.8)
[2025-10-14] MEDS: 0.9 % Sodium Chloride Flush 3 ML SYRINGE IVFLUSH ×2 (05:27→08:51)
--- NOTE | 2025-10-14 05:35 | PC.NURSE ---
Iv placed 20g on the right hand and flushed.
--- NOTE | 2025-10-14 08:30 | PC.NURSE ---
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 Patient arrived on 3L nasal cannula, with dry bloody nose, humidification applied and new nasal cannula provided. Patient alert and oriented, very pleasant and compliant with care. Virtual monitor in place for history of elopement, bed alarm on, call harris within reach.
--- NOTE | 2025-10-14 09:42 | MHC.CM.PN ---
Addendum entered by Cecilia Montez RN 10/14/25 16:26: Patient will dc to [facility] via BLS booked for 5:30. Brother/HCP and patient aware. MEDICAL ADMINISTRATOR and RN aware. Addendum entered by Cecilia Montez RN 10/14/25 14:39: [facility] Reviewed w/ HCP/brother Guillerom, who has accepted. MDS and PASRR submitted to [facility] via fax. Original Note: Patient comes to unit from ED, where he was awaiting LTC placement. 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 Long hx ETOH misuse. Independent. Requires home O2. Recently at [facility] for STR, but left AMA. PCP listed at [facility] - unsure if patient is still active. HCP has been invoked by [place] Trevino Guillermo (brother) [phone]. LM to inform patient has been moved to the floor. DP: Will need PT eval. Goal is STR w/ transition to LTC. No facility preferences. CM will continue to follow.
--- NOTE | 2025-10-14 10:34 | P.PNIM_ITS ---
Subjective Subjective Date of Service: 10/14/25 Review of Systems Follow up Physical Exam 2 Vital Signs: Vital Signs: Last Vital Signs Temp 97.1 F 10/14/25 08:34 Pulse 80 10/14/25 08:34 Resp 16 10/14/25 08:34 BP 108/60 10/14/25 08:34 Pulse Ox 91 L 10/14/25 08:34 O2 Del Method Nasal Cannula 10/14/25 08:34 O2 Flow Rate 3 10/14/25 08:34 Oxygen Flow Rate 2 10/01/25 17:20 BMI result Body Mass Index 24.5 Objective Data Active Medications Albuterol Sulfate (Albuterol Sulfate 90 Mcg 8 Gm Inhaler) 2 puff INHALE Q4H PRN PRN Reason: Respiratory Distress Calcium Carbonate (Calcium Carbonate 750 Mg Tab.Chew) 750 mg PO Q4H PRN PRN Reason: Heartburn Folic Acid (Folic Acid 1 Mg Tablet) 1 mg PO DAILY [facility] Last Admin: 10/14/25 08:51 Dose: 1 mg Documented By: DIPTI Magnesium Hydroxide (Milk Of Magnesia 30 Ml Oral.Susp) 30 ml PO DAILY PRN PRN Reason: Constipation Magnesium Oxide (Magnesium Oxide 400 Mg Tablet) 400 mg PO DAILY [facility] Last Admin: 10/14/25 08:51 Dose: 400 mg Documented By: DIPTI Melatonin (Melatonin 3 Mg Tablet) 6 mg PO BEDTIME PRN PRN Reason: Insomnia Multivitamins/Vitamin C (Multivitamin Tablet) 1 tab PO DAILY [facility] Last Admin: 10/14/25 08:51 Dose: 1 tab Documented By: DIPTI Naltrexone HCl (Naltrexone Hcl 50 Mg Tablet) 50 mg PO DAILY [facility] Last Admin: 10/14/25 08:51 Dose: 50 mg Documented By: DIPTI Pharmacy Consult (Consult Rx Etoh Phenob Im/Po) 1 each MISCELLANE ONCE PRN; Protocol PRN Reason: Consult order Sodium Chloride (0.9 % Sodium Chloride Flush 3 Ml Syringe) 3 ml IVFLUSH QSHIFT [facility] Last Admin: 10/14/25 08:51 Dose: 3 ml Documented By: DIPTI Thiamine HCl (Thiamine Hcl 100 Mg Tablet) 100 mg PO DAILY [facility] Last Admin: 10/14/25 08:51 Dose: 100 mg Documented By: DIPTI Trazodone HCl (Trazodone Hcl 25 Mg Halftab) 25 mg PO BEDTIME PRN PRN Reason: Insomnia Labs 10/14/25 03:19 10/14/25 03:19 Labs: Laboratory Results - last 24 hr 10/14/25 03:19 MCV 90.6 MCH 29.8 MCHC 32.8 RDW 15.6 Plt Count 71 L MPV 13.6 H Absolute Nucleated RBC 0.000 Nucleated RBC % (auto) 0.0 Anion Gap 12 Estim Creat Clear Calc 70.2 Estimated GFR > 60 Random Glucose 95 Calcium 9.6 Magnesium 1.6 Total Creatine Kinase 21 L Assessment and Plan (1) Alcoholism: Status: Acute Plan 55-year-old male with a past medical history significant for severe alcohol use disorder, liver cirrhosis, HFpEF and chronic hypoxia, who presented to the ED on 10/01/2025 for cough x1 day and low back pain x1 week. Plan for patient to be admitted to the hospitalist service for ongoing search for long-term care facility bed placement. Alcohol use disorder thiamine, folic acid, multivitamin, naltrexone, magnesium completed phenobarb protocol evaluated by addiction Medicine Liver cirrhosis LFTs normal avoid hepatotoxins HFpEF no acute exacerbation Chronic hypoxia albuterol p.r.n. oxygen supplementation as needed Insomnia trazodone Homelessness, lacks capacity and knowledge of medical issues imminent concern for pt safety with etoh use and lack of capacity awaiting LTC bed \Healthcare proxy invoked, brother- Guillermo VTE prophylaxis: pneumoboots Patient has severe alcohol use disorder, liver cirrhosis, deemed to not have capacity, concern for imminent harm to self and does not have secure housing, awaiting bed placement at long-term care facility. Quality Stroke Does the patient have a stroke diagnosis?: No VTE Prior VTE?: No VTE Risk Level:: Medical - moderate - high VTE Device Contraindication: N/A - Device Ordered VTE Drug Contraindication: Treatment Not Indicated
--- NOTE | 2025-10-14 15:49 | PM.DS ---
DS: Providers Provider Date of Service: 10/14/25 Date of admission: 10/13/25 22:15 Date of discharge: 10/14/25 Primary care physician: Santosh Ling MD Consults: 10/01/25 19:36 Consult to Psychiatry Stat Consulting Provider: [facility] [place]ing Reason for consultation: determine capacity to refuse medical care 10/02/25 11:35 Consult to Case Management Stat Comment: DS: Diagnosis Discharge Diagnosis (1) Alcoholism: Status: Acute DS: Summary Hospital Course Hospital Course: History and physical as per admitting provider. Patient is a 55-year-old male with a past medical history significant for severe alcohol use disorder, liver cirrhosis, HFpEF and chronic hypoxia, who presented to the ED on 10/01/2025 for cough x1 day and low back pain x1 week. The patient then denied this when evaluated in the ED and reported that he was there due to itchy testicles. No testicular pain or swelling. Testicular workup was normal, possible Nimo, patient had a trial of nystatin with improvement. Patient was placed on physician observation for case management needs and started on phenobarb protocol to prevent alcohol withdrawal as well as thiamine. He was seen by the psych team and deemed that he does not have capacity to make his own medical decisions. This patient has been followed by case management and the patient's healthcare proxy his brother, Guillermo, agreed that the patient does not have capacity and would like him placed at a long-term care facility. The patient was evaluated by psych and started on trazodone as needed for insomnia. He was treated for community-acquired pneumonia with ceftriaxone and azithromycin and completed treatment. His blood pressure is chronically low and he has had transient episodes of hypotension but has maintained appropriate MAP. Currently, his only complaint is muscle soreness. Plan for patient to be admitted to the hospitalist service for ongoing search for long-term care facility bed placement. Alcohol use disorder thiamine, folic acid, multivitamin, naltrexone, magnesium completed phenobarb protocol Liver cirrhosis LFTs normal avoid hepatotoxins HFpEF no acute exacerbation during hospitalizations Chronic hypoxia albuterol p.r.n. oxygen supplementation as needed Insomnia trazodone Homelessness, lacks capacity and knowledge of medical issues imminent concern for pt safety with etoh use and lack of capacity PT recommending STR. Rehab expected to be less than 30 days. Time Attestation Discharge Coordination Time (in mins): 45 Quality: Safe Use of Opioids Does Pt have an Active Cancer Diagnosis on the Problem List?: No Quality: Stroke Does the patient have a stroke diagnosis?: No Physical Exam Exam: Exam: Appearing in no acute distress head is normocephalic atraumatic eyes pupils are PERRLA sclera is anicteric mouth throat mucous membranes are intact and moist neck is supple no lymphadenopathy, no JVD noted lung sounds are clear to auscultation heart regular rate rhythm, clear S1, S2 positive bowel sounds, abdomen is soft, nontender neuro patient is alert x3, no focal deficits Vital Signs: Vital Signs: Last Vital Signs Temp 97.1 F 10/14/25 08:34 Pulse 86 10/14/25 13:09 Resp 16 10/14/25 08:34 BP 108/60 10/14/25 08:34 Pulse Ox 92 10/14/25 13:09 O2 Del Method Nasal Cannula 10/14/25 13:09 O2 Flow Rate 3 10/14/25 13:09 Oxygen Flow Rate 2 10/01/25 17:20 BMI result Body Mass Index 24.5 DS: Data Data Completed and Pending Completed studies during hospitalization [Text1]: Procedures Control Bleeding in Gastrointestinal Tract, Via Natural or Artificial Opening Endoscopic (08/29/23) Control Bleeding in Nasal Mucosa and Soft Tissue, Via Natural or Artificial Opening (11/29/24) Detoxification Services for Substance Abuse Treatment (08/31/25) Drainage of Peritoneal Cavity, Percutaneous Approach (10/21/24) Excision of Ascending Colon, Via Natural or Artificial Opening Endoscopic, Diagnostic (08/03/23) Excision of Descending Colon, Via Natural or Artificial Opening Endoscopic, Diagnostic (08/03/23) Insertion of Infusion Device into Upper Vein, Percutaneous Approach (08/29/23) Introduction of Mineral-based Topical Hemostatic Agent into Lower GI, Via Natural or Artificial Opening Endoscopic, [employer] (08/03/23) Introduction of Mineral-based Topical Hemostatic Agent into Upper GI, Via Natural or Artificial Opening Endoscopic, [employer] (08/29/23) Occlusion of Esophageal Vein with Extraluminal Device, Via Natural or Artificial Opening Endoscopic (11/29/24) Occlusion of Esophageal Vein, Via Natural or Artificial Opening Endoscopic (01/22/24) Transfusion of Nonautologous Plasma Cryoprecipitate into Peripheral Vein, Percutaneous Approach (08/03/23) Transfusion of Nonautologous Platelets into Peripheral Vein, Percutaneous Approach (11/29/24) Transfusion of Nonautologous Red Blood Cells into Peripheral Vein, Percutaneous Approach (11/29/24) Labs on day of discharge: Laboratory Results - last 24 hr 10/14/25 03:19 WBC 3.8 L RBC 3.63 L Hgb 10.8 L Hct 32.9 L MCV 90.6 MCH 29.8 MCHC 32.8 RDW 15.6 Plt Count 71 L MPV 13.6 H Absolute Nucleated RBC 0.000 Nucleated RBC % (auto) 0.0 Sodium 141 Potassium 4.1 Chloride 113 H Carbon Dioxide 20 L Anion Gap 12 BUN 26 H Creatinine 0.83 Estim Creat Clear Calc 70.2 Estimated GFR > 60 Random Glucose 95 Calcium 9.6 Magnesium 1.6 Total Creatine Kinase 21 L Discharge Plan Discharge Anticipated Discharge Date/Time: 10/14/25 16:11 Patient Disposition: Xfer SNF Discharge Diagnosis: Alcohol use disorder Liver cirrhosis Referrals: aSntosh Ling MD [Primary Care Provider, Medical] Discharge Medications: Continued naltrexone 50 mg Tablet 50 mg PO DAILY albuterol sulfate 90 mcg/actuation Hfa Aerosol Inhaler 2 puff INHALATION Q4-6H PRN (Reason: Respiratory Distress) thiamine HCl (vitamin B1) 100 mg Tablet 100 mg PO DAILY folic acid 1 mg Tablet 1 mg PO DAILY magnesium oxide 400 mg magnesium Tablet 400 mg PO DAILY Discharge Orders: Discharge Order (Routine); Ordered 10/14/25 Ordered By: Massiel Fall Diet: Advance to usual diet Activity on Discharge: As tolerated Stand Alone Forms: Patient Portal Discharge page Print Language: Faroese Care Plan Goals: Take all medications as prescribed Health Concerns: Alcohol use disorder Liver cirrhosis Plan of Treatment: Follow up with primary care provider as needed Take all medications as prescribed Assessment: See discharge summary
--- NOTE | 2025-10-14 17:49 | PC.NURSE ---
17:49 - call made to [phone] to [facility] accepting facility to give nurse to nurse report. Unable to get through to staff to give report, on hold for 5 minutes.
== END 2025-10-14 18:46 | disposition skilled nursing facility (03) | DRG 385 ==
LOC: HO.ED 10-11 07:43 → HO.EDOVER 10-13 22:21 → HO.S3 10-14 07:35
PROVIDERS: Emergency Medicine; Physician Assistant Medical; Admitting Provider Physician Assistant; Emergency Provider Emergency Medicine; PCP Internal Medicine; Visit Provider Nurse Practitioner Acute Care
DX: B37.2 Candidiasis of skin and nail (principal); K70.30 Alcoholic cirrhosis of liver without ascites; I50.32 Chronic diastolic (congestive) heart failure; F10.20 Alcohol dependence, uncomplicated; G47.00 Insomnia, unspecified; R09.02 Hypoxemia; Z59.02 Unsheltered homelessness; Z79.899 Other long term (current) drug therapy; Z87.891 Personal history of nicotine dependence
CPT/HCPCS: 36415; 71045; 71046; 80048; 80053; 82550; 83605; 83735; 84145; 85025; 85027; 86140; 87040; 93005; 97162; 99285; J0696; J2560

== ENCOUNTER → 2025-10-01 17:48 | Outpatient (BNV) | payer OTHER, SELFPAY | PROVIDERS: Emergency Provider Emergency Medicine; Visit Provider Social Worker | DX: F10.90 Alcohol use, unspecified, uncomplicated (principal) | CPT/HCPCS: 99284 ==

== ENCOUNTER → 2025-10-02 11:25 | Outpatient (BNV) | payer MEDICAID, SELFPAY | PROVIDERS: Emergency Provider Emergency Medicine; Visit Provider Radiology Diagnostic Radiology | DX: R05.9 Cough, unspecified (principal) | CPT/HCPCS: 71046 ==

== ENCOUNTER → 2025-10-02 11:25 | Outpatient (BNV) | payer MEDICAID, SELFPAY | PROVIDERS: Emergency Provider Emergency Medicine; Visit Provider Internal Medicine | DX: F10.90 Alcohol use, unspecified, uncomplicated (principal) | CPT/HCPCS: 93010 ==

== ENCOUNTER → 2025-10-03 06:16 | Outpatient (BNV) | payer MEDICAID, SELFPAY | PROVIDERS: Emergency Provider Emergency Medicine; Visit Provider Radiology Diagnostic Radiology | DX: R91.8 Other nonspecific abnormal finding of lung field (principal) | CPT/HCPCS: 71045 ==

== ENCOUNTER → 2025-10-07 08:18 | Outpatient (BNV) | payer MEDICAID, SELFPAY | PROVIDERS: Emergency Provider Emergency Medicine; PCP Internal Medicine; Visit Provider Radiology Diagnostic Radiology | DX: J84.9 Interstitial pulmonary disease, unspecified (principal); R91.8 Other nonspecific abnormal finding of lung field | CPT/HCPCS: 71045 ==

== ENCOUNTER → 2025-10-13 22:15 | Outpatient (BNV) | payer MEDICAID, SELFPAY | PROVIDERS: Admitting Provider Physician Assistant; Emergency Provider Emergency Medicine; PCP Internal Medicine; Visit Provider Nurse Practitioner Acute Care | DX: F10.20 Alcohol dependence, uncomplicated (principal); D61.818 Other pancytopenia; K70.30 Alcoholic cirrhosis of liver without ascites; Z59.00 Homelessness unspecified | CPT/HCPCS: 99222; 99239; 99499 ==